=== PATIENT | male | born 1950 | race Caucasian/White ===

== ENCOUNTER 2016-10-26 10:23 | Outpatient (RCR) | payer MEDICAID, MEDICARE ==
--- OUTSIDE RECORDS SUMMARY | 2016-10-25 10:46 | XMS REPORT | Continuity of Care Document ---
Author Author [facility] Organization [facility] Address Unknown Phone Unavailable Care Team Providers Care Facilities Coordinator Name Role Phone [facility]CP Insurance Providers Payer Name Policy Number Subscriber Name Relationship [employer] [id number] Jah Arteaga 18 Self / Same As Patient [facility] [id number] Jah Arteaga 18 Self / Same As Patient Advance Directives Directive Response Recorded Date/Time Advance Directives No 10/23/14 11:30pm Health Care Power of Marketing Sales Manager No 10/23/14 11:30pm Organ Donor No 10/23/14 11:30pm Resuscitation Status Full Code 10/23/14 11:30pm Chief Complaint and Reason for Visit Chief Complaint ACUTE CHOLECYSTITIS,SEPTIC SHOCK Reason for Visit Cholecystitis Gangrenous cholecystitis Gangrenous cholecystitis Problems Medical Problems Problem Onset Date Status Cholecystitis Unknown Active Gangrenous cholecystitis Unknown Active Gangrenous cholecystitis Unknown Active Medications Medication Dose Route Sig Days/Qty Instructions Order Date Discontinued Date Status Tramadol Hcl 50 Mg PO THREE TIMES A DAY PRN 05/22/11 10/23/14 Discontinued Insulin Lispro 100 Unit SQ THREE TIMES A DAY 05/22/11 10/23/14 Discontinued Lisinopril/Hydrochlorothiazide 1 Tab PO DAILY 05/22/11 10/23/14 Discontinued Levothyroxine Sodium (Levothroid) 125 Mcg PO DAILY 05/22/11 Discontinued Loratadine 10 Mg PO DAILY 05/22/11 10/23/14 Discontinued Insulin Detemir 100 Units SQ TWICE A DAY 05/26/11 Active Metformin HCl (Glucophage) 1 Each PO TWICE A DAY WITH MEALS 03/22/13 10/26/14 Discontinued Azithromycin (Zpak) 1 Packet PO Z-TRI 6 Qty 03/22/13 10/23/14 Discontinued Liraglutide 1.2 Mg SQ DAILY 10/23/14 Active [Cholesterol] 10/23/14 10/23/14 Discontinued Vitamin E (Dl,Tocopheryl Acet) 200 Unit PO DAILY 10/23/14 Active Omeprazole 20 Mg PO DAILY 10/23/14 Active Levothyroxine Sodium (Levothroid) 1 Each PO DAILY 10/23/14 10/26/14 Discontinued Amitriptyline Hcl 25 Mg PO DAILY 10/23/14 10/26/14 Discontinued Lisinopril 20 Mg PO DAILY 10/23/14 10/26/14 Discontinued Metformin Hcl 500 Mg PO TWICE A DAY 10/26/14 Active Colestipol Hcl,Micronized 1 Gm PO TWICE A DAY 10/26/14 Active Doxepin Hcl 50 Mg PO BEDTIME PRN SLEEP 10/26/14 Active Lisinopril (Zestril) 20 Mg PO DAILY 10/26/14 Active Glipizide (Glucotrol) 20 Mg PO TWICE A DAY TAKES 2 (10MG) TABLETS 10/26 Active Venlafaxine Hcl 75 Mg PO DAILY 10/26/14 Active Social History Social History Problem Response Recorded Date/Time Alcohol Use Denies Use 10/24/2014 12:00am Recreational Drug Use No 10/24/2014 12:00am Recent Foreign Travel No 08/14/2014 1:55pm Recent Infectious Disease Exposure No 08/14/2014 1:55pm Hospitalization with Isolation Denies 11/02/2014 12:41pm Sexually Transmitted Disease No 10/24/2014 12:00am Smoking Status Former Smoker 10/24/2014 12:03am Do you dip or chew tobacco? No 10/24/2014 12:03am Query Response Start Date Stop Date Smoking Status Former Smoker Hospital Discharge Instructions No hospital discharge instructions. Plan of Care Discharge Date 10/28/14 6:00pm Disposition 30 STILL A PATIENT Instructions/Education Provided DIABETES Diabetes Mellitus Type 2 in Adults (DC) Laparoscopic Cholecystectomy (DC) Acute Abdominal Pain (ED) Wound Healing and your Diet (DC) Prescriptions See Medications Section Referrals (Unspecified) Reason(s) for Referral: appt w Dr. Manning in office on 2013 @ 2:30. ([phone]). Functional Status Query Response Date Recorded Comprehension Ability Understands Concepts October 26, 2014 11:31am Allergies, Adverse Reactions, Alerts Allergen Type Severity Reaction Status Last Updated No Known Drug Allergies Active 05/22/11 Immunizations Name Given Type Date of Pneumonia Vaccine 07/14/13 Historical Date of Influenza Vaccine 09/12/14 Historical Hepatitis A No Historical Hepatitis B No Historical Tetanus Booster (TDap) More than 5yrs Historical Vital Signs Acute Vital Signs Vital Response Date/Time Temperature (Fahrenheit) 97.8 degrees F (97.6 - 99.5) Temperature (Calculated Celsius) 36.86800 degrees C (36.4 - 37.5) Temperature Source Tympanic Pulse Rate (adult) 74 bpm (60 - 90) Respiratory Rate 20 bpm (12 - 24) O2 Sat by Pulse Oximetry 94 % (88 - 100) Blood Pressure 127/83 mm Hg Pain Pain Intensity 0 Height (Feet) 5 feet Height (Inches) 9.00 inches Height (Calculated Centimeters) 175.502111 cm Weight (Pounds) 219 pounds Weight (Ounces) 4.8 oz Weight (Calculated Grams) 07773.808 gm Weight (Calculated Kilograms) 99.299489 kilograms Calculated BMI 32.48 Results Laboratory Results Test Name Result Units Flags Reference Collection Date/Time Result Date/ Time Comments White Blood Count 11.6 10^3/uL H 4.3-11.0 10/28/2014 11:00am 10/28/2014 11:12am Red Blood Count 3.49 10^6/uL L 4.35-5.85 10/28/2014 11:00am 10/28/2014 11 :12am Hemoglobin 11.0 G/DL L 13.3-17.7 10/28/2014 11:00am 10/28/2014 11:12am Hematocrit 32 % L 40-54 10/28/2014 11:00am 10/28/2014 11:12am Mean Corpuscular Volume 92 FL 80-99 10/28/2014 11:00am 10/28/2014 11: 12am Mean Corpuscular Hemoglobin 32 PG 25-34 10/28/2014 11:00am 10/28/2014 11:12am Mean Corpuscular Hemoglobin Concent 34 G/DL 32-36 10/28/2014 11:00am 11:12am Red Cell Distribution Width 12.4 % 10.0-14.5 10/28/2014 11:00am 2013 11:12am Platelet Count 683 10^3/uL H 130-400 10/28/2014 11:00am 10/28/2014 11: 12am Mean Platelet Volume 9.4 FL 7.4-10.4 10/28/2014 11:00am 10/28/2014 11: 12am Neutrophils (%) (Auto) 66 % 42-75 10/28/2014 11:00am 10/28/2014 11: 12am Lymphocytes (%) (Auto) 24 % 12-44 10/28/2014 11:00am 10/28/2014 11: 12am Monocytes (%) (Auto) 8 % 0-12 10/28/2014 11:00am 10/28/2014 11:12am Eosinophils (%) (Auto) 2 % 0-10 10/28/2014 11:00am 10/28/2014 11:12am Basophils (%) (Auto) 0 % 0-10 10/28/2014 11:00am 10/28/2014 11:12am Neutrophils # (Auto) 7.7 X 10^3 1.8-7.8 10/28/2014 11:00am 10/28/2014 11:12am Lymphocytes # (Auto) 2.8 X 10^3 1.0-4.0 10/28/2014 11:00am 10/28/2014 11:12am Monocytes # (Auto) 0.9 X 10^3 0.0-1.0 10/28/2014 11:00am 10/28/2014 11: 12am Eosinophils # (Auto) 0.2 10^3/uL 0.0-0.3 10/28/2014 11:00am 10/28/2014 11:12am Basophils # (Auto) 0.1 10^3/uL 0.0-0.1 10/28/2014 11:00am 10/28/2014 11 :12am Neutrophils % (Manual) 72 % 10/23/2014 3:48pm 10/23/2014 4:25pm Band Neutrophils 4 % 10/23/2014 3:48pm 10/23/2014 4:25pm Lymphocytes % (Manual) 14 % 10/23/2014 3:48pm 10/23/2014 4:25pm Monocytes % (Manual) 4 % 10/23/2014 3:48pm 10/23/2014 4:25pm Eosinophils % (Manual) 2 % 10/23/2014 3:48pm 10/23/2014 4:25pm Basophils % (Manual) 0 % 10/23/2014 3:48pm 10/23/2014 4:25pm Atypical Lymphocytes 4 % 10/23/2014 3:48pm 10/23/2014 4:25pm Blood Morphology Comment NORMAL 10/23/2014 3:48pm 10/23/2014 4: 25pm Urine Color YELLOW 10/23/2014 3:48pm 10/23/2014 4:31pm Urine Clarity CLEAR 10/23/2014 3:48pm 10/23/2014 4:31pm Urine pH 5 5-9 10/23/2014 3:48pm 10/23/2014 4:31pm Urine Specific [place] 1.020 1.016-1.022 10/23/2014 3:48pm 2013 4:31pm Urine Protein NEGATIVE NEGATIVE 10/23/2014 3:48pm 10/23/2014 4:31pm Urine Glucose (UA) NEGATIVE NEGATIVE 10/23/2014 3:48pm 10/23/2014 4: 31pm Urine RBC (Auto) NEGATIVE NEGATIVE 10/23/2014 3:48pm 10/23/2014 4: 31pm Urine Ketones NEGATIVE NEGATIVE 10/23/2014 3:48pm 10/23/2014 4:31pm Urine Nitrite NEGATIVE NEGATIVE 10/23/2014 3:48pm 10/23/2014 4:31pm Urine Bilirubin NEGATIVE NEGATIVE 10/23/2014 3:48pm 10/23/2014 4: 31pm Urine Urobilinogen NORMAL MG/DL NORMAL 10/23/2014 3:48pm 10/23/2014 4: 31pm Urine Leukocyte Esterase NEGATIVE NEGATIVE 10/23/2014 3:48pm 2013 4:31pm Urine RBC NONE /HPF 10/23/2014 3:48pm 10/23/2014 4:31pm Urine WBC NONE /HPF 10/23/2014 3:48pm 10/23/2014 4:31pm Urine Bacteria NEGATIVE /HPF 10/23/2014 3:48pm 10/23/2014 4:31pm Urine Squamous Epithelial Cells RARE /HPF 10/23/2014 3:48pm 2013 4:31pm Urine Crystals NONE /LPF 10/23/2014 3:48pm 10/23/2014 4:31pm Urine Casts NONE /LPF 10/23/2014 3:48pm 10/23/2014 4:31pm Urine Mucus NEGATIVE /LPF 10/23/2014 3:48pm 10/23/2014 4:31pm Urine Culture Indicated NO 10/23/2014 3:48pm 10/23/2014 4:31pm Sodium Level 133 MMOL/L L 135-145 10/28/2014 11:00am 10/28/2014 11:38am Potassium Level 3.9 MMOL/L 3.6-5.0 10/28/2014 11:00am 10/28/2014 11: 38am Chloride Level 102 MMOL/L 98-107 10/28/2014 11:00am 10/28/2014 11:38am Carbon Dioxide Level 20 MMOL/L L 21-32 10/28/2014 11:00am 10/28/2014 11: 38am Blood Urea Nitrogen 14 MG/DL 7-18 10/28/2014 11:00am 10/28/2014 11: 38am Creatinine 0.87 MG/DL 0.60-1.30 10/28/2014 11:00am 10/28/2014 11:38am BUN/Creatinine Ratio 16 10/28/2014 11:00am 10/28/2014 11:38am Estimat Glomerular Filtration Rate > 60 10/28/2014 11:00am 2013 11:38am GFR INTERPRETIVE DATA UNITS FOR ESTIMATED GFR (eGFR): mL/min/1.73 M2 REFERENCE RANGE FOR ESTIMATED GFR (eGFR) eGFR NORMAL eGFR >60 MODERATELY DECREASED eGFR 30-59 SEVERLY DECREASED eGFR 15-29 KIDNEY FAILURE <15 (OR DIALYSIS) Glucose Level 171 MG/DL H 70-105 10/28/2014 11:00am 10/28/2014 11:38am Glucometer 220 MG/DL H 70-110 10/28/2014 1:59pm 10/28/2014 2:09pm Calcium Level 8.2 MG/DL L 8.5-10.1 10/28/2014 11:00am 10/28/2014 11:38am Total Bilirubin 0.2 MG/DL 0.1-1.0 10/28/2014 11:00am 10/28/2014 11: 38am Alkaline Phosphatase 92 U/L 40-136 10/28/2014 11:00am 10/28/2014 11: 38am Aspartate Amino Transf (AST/SGOT) 25 U/L 5-34 10/28/2014 11:00am 2013 11:38am Alanine Aminotransferase (ALT/SGPT) 16 U/L 0-55 10/28/2014 11:00am 11:38am Total Protein 6.6 G/DL 6.4-8.2 10/28/2014 11:00am 10/28/2014 11:38am Albumin 2.8 G/DL L 3.2-4.5 10/28/2014 11:00am 10/28/2014 11:38am Amylase Level 69 U/L 25-125 10/23/2014 3:48pm 10/23/2014 4:17pm Lipase 79 U/L H 8-78 10/23/2014 3:48pm 10/23/2014 4:17pm Lactic Acid Level 0.9 MMOL/L 0.5-2.2 10/25/2014 10:45am 10/25/2014 11: 20am Procedures Procedure Status Date Provider(s) Laparoscopic cholecystectomy completed 10/23/14 AGUSTIN MANNING MD Encounters Encounter Location Date/Time Discharged Inpatient [facility] 10/23/14 5:28pm Recent Diagnosis Cholecystitis Gangrenous cholecystitis Gangrenous cholecystitis
[~2016-10-26 10:23] MED LIST: AMIT25TA9 PO; AZIT-21 PO; CHOLESTEROL; COLE1TAB PO; DOXE50CA3 PO; GLIP10TA13 PO; INSU100I23 SQ; LEVE1U SQ; LEVO125T6 PO; LIRA0.6P SQ; LISI10TA2 PO; LISI1TAB32 PO; LISI20TA PO; LORA10TA7 PO; METF-144 PO; MTF500T PO; OMEP20CA12 PO; TRAM50TA2 PO; VENL75CA55 PO; VITA200C53 PO
== END 2017-01-23 | disposition home or self-care (01) ==
LOC: LAB 10:23
PROVIDERS: ATTEND Surgery
DX: R19.7 Diarrhea, unspecified (principal)
CPT/HCPCS: 82274; 87045; 87046; 87177

== ENCOUNTER 2017-04-10 21:32 | Emergency (ER) | payer MEDICARE ==
[~2017-04-10] VITALS: Ht 177.8 cm; Wt 82.6 kg
[2017-04-10] MEDS ORDERED: NS IV 1000 ML 1,000 ML IV SCH (21:45)
[2017-04-10 21:49] LABS: BASOPHILS % (AUTO) 0 % (0-10); EOSINOPHILS # (AUTO) 0.1 10^3/uL (0.0-0.3); EOSINOPHILS % (AUTO) 1 % (0-10); LYMPHOCYTES # (AUTO) 2.5 X 10^3 (1.0-4.0); LYMPHOCYTES % (AUTO) 17 % (12-44); MEAN CORPUSCULAR HEMOGLOBIN 31 PG (25-34); MEAN CORPUSCULAR HGB CONC 35 G/DL (32-36); MEAN CORPUSCULAR VOLUME 88 FL (80-99); MEAN PLATELET VOLUME 10.7 FL (7.4-10.4); MONOCYTES # (AUTO) 1.4 X 10^3 (0.0-1.0); MONOCYTES % (AUTO) 9 % (0-12); NEUTROPHILS # (AUTO) 10.4 X 10^3 (1.8-7.8); NEUTROPHILS % (AUTO) 73 % (42-75); PLATELET COUNT 405 10^3/uL (130-400); RED BLOOD COUNT 4.12 10^6/uL (4.35-5.85); RED CELL DISTRIBUTION WIDTH 12.5 % (10.0-14.5); WHITE BLOOD COUNT 14.3 10^3/uL (4.3-11.0)
--- NOTE | 2017-04-10 21:51 | ED GU-Male ---
General Chief Complaint: -Male Stated Complaint: URINARY INCONTINENCE Nursing Triage Note: PT TO ED 6 W/ S.O. FOR C/O URINARY INCONTINENCE ONSET X1 WK, WORSE TODAY. DENIES SEEING PCP FOR C/O. Source: patient Exam Limitations: no limitations History of Present Illness Time seen by provider: 21:50 Initial Comments To ER with a one-week history of suprapubic discomfort and urinary frequency and incontinence. This has caused him to need to bring a cool whip container with him to the emergency room to urinate in on the way here. No fevers or chills. He has not seen his regular doctor for this. No back pain. No loss of bowel control. Timing/Duration: week, getting worse Severity/Quality: moderate Location: suprapubic Activities at Onset: none Prior Genitourinary Problems: none Associated Symptoms: dysuria Allergies and Home Medications Allergies Coded Allergies: No Known Drug Allergies (Unverified , 05/22/11) Home Medications Ciprofloxacin HCl 500 Mg Tablet, 500 MG PO BID, #14 Prescribed by: SADE RODAS on 04/10/176 Colestipol Hcl,Micronized 1 Gm Tablet, 1 GM PO BID, (Reported) Doxepin Hcl 50 Mg Capsule, 50 MG PO HS PRN for SLEEP, (Reported) Glipizide 10 Mg Tablet, 20 MG PO BID, (Reported) TAKES 2 (10MG) TABLETS Insulin Determir 100 U/Ml Insuln.pen, 100 UNITS SQ BID, (Reported) Liraglutide 0.6 Mg/0.1 Ml Pen.injctr, 1.2 MG SQ DAILY, (Reported) Lisinopril 20 Mg Tablet, 20 MG PO DAILY, (Reported) Metformin Hcl 500 Mg Tab.sr.24h, 500 MG PO BID, (Reported) Omeprazole 20 Mg Capsule.dr, 20 MG PO DAILY, (Reported) Phenazopyridine HCl 100 Mg Tablet, 100 MG PO TID, #6 Prescribed by: SADE RODAS on 04/10/172225 Venlafaxine Hcl 75 Mg Cap.sr.24h, 75 MG PO DAILY, (Reported) Vitamin E (Dl,Tocopheryl Acet) 200 Unit Capsule, 200 UNIT PO DAILY, (Reported) Constitutional: see HPI, No chills, No fever EENTM: see HPI Respiratory: no symptoms reported Cardiovascular: no symptoms reported Genitourinary: see HPI, dysuria Musculoskeletal: no symptoms reported Skin: no symptoms reported Psychiatric/Neurological: No Symptoms Reported Endocrine: No Symptoms Reported Past Awkkjfc-Xmdhuh-Ycyjlq Hx Patient Social History Alcohol Use: Denies Use Recreational Drug Use: No Smoking Status: Never a Smoker Recent Foreign Travel: No Contact w/Someone Who Travel: No Recent Infectious Disease Expo: No Recent Hopitalizations: No Immunizations Up To Date Tetanus Booster (TDap): More than 5yrs PED Vaccines UTD: No Date of Pneumonia Vaccine: Jul 14, 2013 Date of Influenza Vaccine: Sep 12, 2014 Seasonal Allergies Seasonal Allergies: Yes Surgeries HX Surgeries: Yes (hemmorhoids removed, CATARACTS) Surgeries: Eye Surgery, Gallbladder, Orthopedic Respiratory Hx Respiratory Disorders: Yes Respiratory Disorders: Pneumonia, Sleep Apnea, COPD Cardiovascular Hx Cardiac Disorders: Yes Cardiac Disorders: High Cholesterol, Hypertension Neurological Hx Neurological Disorders: No Reproductive System Hx Reproductive Disorders: Yes (sterile) Sexually Transmitted Disease: No Genitourinary Hx Genitourinary Disorders: No Gastrointestinal Hx Gastrointestinal Disorders: Yes Gastrointestinal Disorders: Hemorrhoids Musculoskeletal Hx Musculoskeletal Disorders: Yes Musculoskeletal Disorders: Chronic Back Pain, Fractures Endocrine Hx Endocrine Disorders: Yes (Type II) Endocrine Disorders: Diabetes, Insulin dep HEENT HX ENT Disorders: Yes (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, bilat cataracts removed) HEENT Disorders: Cataract Cancer Hx Cancer: No Psychosocial Hx Psychiatric Problems: No Integumentary HX Skin/Integumentary Disorder: No Blood Transfusions Hx Blood Disorders: No Adverse Reaction to a Blood Tr: No (No transfusion history.) Family Medical History Significant Family History: Hypertension Family Medial History: Alcoholism G8 BROTHER G8 BROTHER Alzheimer's disease 19 MOTHER Arthritis 19 FATHER 19 MOTHER Asthma 19 FATHER Cataracts 19 FATHER 19 MOTHER G8 BROTHER G8 BROTHER G8 SISTER G8 SISTER G8 SISTER Completed stroke 19 FATHER G8 SISTER Deafness or hearing loss G8 BROTHER Diabetes mellitus 19 FATHER 19 MOTHER G8 BROTHER G8 BROTHER G8 BROTHER G8 SISTER G8 SISTER G8 SISTER Hypertension 19 FATHER 19 MOTHER G8 BROTHER G8 BROTHER G8 BROTHER G8 BROTHER G8 SISTER G8 SISTER G8 SISTER G8 SISTER G8 SISTER G8 SISTER G8 SISTER Respiratory disorder G8 BROTHER No Family History of: AIDS Abdominal aortic aneurysm Britton's disease Aphasia Cancer of mouth Cardiovascular disease Colon cancer Congenital disease Congenital heart disease Coronary thrombosis Cystic fibrosis Dementia Drug abuse Dysphasia Fibrocystic disease of breast Gastroenteritis Glaucoma Headache disorder Hypercholesterolemia Infertility Kidney disease Myocardial infarction Neoplasm Not obtainable due to adoption Osteoporosis Parkinson's disease Prostate cancer Psychosocial problem Seizure disorder Severe allergy Thyroid disease Tuberculosis Visual disorder Physical Exam Vital Signs Vital Sign - Last 12Hours 04/10/17 21:37 Temp 99.5 Pulse 102 Resp 20 B/P (MAP) 162/85 Pulse Ox 96 O2 Delivery Room Air Capillary Refill : Less Than 3 Seconds General Appearance: WD/WN, no apparent distress HEENT: PERRL/EOMI, normal ENT inspection Neck: non-tender, full range of motion Respiratory: normal breath sounds, no respiratory distress, no accessory muscle use Gastrointestinal: normal bowel sounds, soft, tenderness Extremities: normal range of motion, non-tender Neurologic/Psychiatric: alert, normal mood/affect, oriented x 3 Skin: normal color, warm/dry Progress/Results/Core Measures Results/Orders Lab Results Laboratory Tests Test 04/10/17 21:40 04/10/17 21:49 Range/Units White Blood Count 14.3 H 4.3-11.0 10^3/uL Red Blood Count 4.12 L 4.35-5.85 10^6/uL Hemoglobin 12.6 L 13.3-17.7 G/DL Hematocrit 36 L 40-54 % Mean Corpuscular Volume 88 80-99 FL Mean Corpuscular Hemoglobin 31 25-34 PG Mean Corpuscular Hemoglobin Concent 35 32-36 G/DL Red Cell Distribution Width 12.5 10.0-14.5 % Platelet Count 405 H 130-400 10^3/uL Mean Platelet Volume 10.7 H 7.4-10.4 FL Neutrophils (%) (Auto) 73 42-75 % Lymphocytes (%) (Auto) 17 12-44 % Monocytes (%) (Auto) 9 0-12 % Eosinophils (%) (Auto) 1 0-10 % Basophils (%) (Auto) 0 0-10 % Neutrophils # (Auto) 10.4 H 1.8-7.8 X 10^3 Lymphocytes # (Auto) 2.5 1.0-4.0 X 10^3 Monocytes # (Auto) 1.4 H 0.0-1.0 X 10^3 Eosinophils # (Auto) 0.1 0.0-0.3 10^3/uL Basophils # (Auto) 0.0 0.0-0.1 10^3/uL Neutrophils % (Manual) 72 % Lymphocytes % (Manual) 23 % Monocytes % (Manual) 3 % Eosinophils % (Manual) 0 % Basophils % (Manual) 0 % Band Neutrophils 2 % Blood Morphology Comment NORMAL Sodium Level 132 L 135-145 MMOL/L Potassium Level 4.4 3.6-5.0 MMOL/L Chloride Level 98 98-107 MMOL/L Carbon Dioxide Level 19 L 21-32 MMOL/L Anion Gap 15 H 5-14 MMOL/L Blood Urea Nitrogen 19 H 7-18 MG/DL Creatinine 1.27 0.60-1.30 MG/DL Estimat Glomerular Filtration Rate 57 BUN/Creatinine Ratio 15 Glucose Level 522 *H 70-105 MG/DL Calcium Level 9.5 8.5-10.1 MG/DL Total Bilirubin 0.3 0.1-1.0 MG/DL Aspartate Amino Transf (AST/SGOT) 15 5-34 U/L Alanine Aminotransferase (ALT/SGPT) 25 0-55 U/L Alkaline Phosphatase 142 H 40-136 U/L Total Protein 7.9 6.4-8.2 G/DL Albumin 3.8 3.2-4.5 G/DL Urine Color YELLOW Urine Clarity SLIGHTLY CLOUDY Urine pH 5 5-9 Urine Specific [place] 1.010 L 1.016-1.022 Urine Protein 3+ H NEGATIVE Urine Glucose (UA) 4+ H NEGATIVE Urine Ketones NEGATIVE NEGATIVE Urine Nitrite POSITIVE H NEGATIVE Urine Bilirubin NEGATIVE NEGATIVE Urine Urobilinogen NORMAL NORMAL MG/DL Urine Leukocyte Esterase 3+ H NEGATIVE Urine RBC (Auto) 5+ H NEGATIVE Urine RBC TNTC H /HPF Urine WBC 50-100 H /HPF Urine Crystals NONE /LPF Urine Bacteria TRACE /HPF Urine Casts NONE /LPF Urine Mucus NEGATIVE /LPF Urine Culture Indicated YES My Orders Orders - SADE RODAS APRN Cbc With Automated Diff (04/10/17 21:42) Comprehensive Metabolic Panel (04/10/17 21:42) Ua Culture If Indicated (04/10/17 21:42) Saline Lock/Iv-Start (04/10/17 21:42) Ns Iv 1000 Ml (Sodium Chloride 0.9%) (04/10/17 21:45) Urine Culture (04/10/17 21:49) Insulin (Regular) Human (Humulin R (Per (04/10/17 22:15) Ceftriaxone Injection (Rocephin Injectio (04/10/17 22:15) Tetanus/Diphtheria Inj (Adult) (Tenivac (04/10/17 22:15) Manual Differential (04/10/17 21:40) Accucheck Stat ONCE (04/10/17 22:38) Medications Given in ED Current Medications Medications Dose Ordered Sig/Jing Route Start Time Stop Time Status Last Admin Dose Admin Ceftriaxone Sodium 1000 mg/ Sodium Chloride 50 ml @ 100 mls/hr ONCE ONCE IV 04/10/17 22:15 04/10/17 22:44 DC 04/10/17 22:26 100 MLS/HR Insulin Human Regular 10 unit ONCE ONCE IV 04/10/17 22:15 04/10/17 22:16 DC 04/10/17 22:25 10 UNIT Vital Signs/I&O Vital Sign - Last 12Hours 04/10/17 21:37 Temp 99.5 Pulse 102 Resp 20 B/P (MAP) 162/85 Pulse Ox 96 O2 Delivery Room Air Blood Pressure Mean: 110 Departure Communication Progress Notes 2240-I discussed the plan for discharge with the patient and his . They're both in agreement with this plan and agreed to return for any fevers, lightheadedness, worsening abdominal pain, confusion or any other concerns. 2249-patient is sitting up on the edge of the bed, vitals stable states "I don' t feel bad other than I just can't quit peeing". Repeat blood sugar at this time is 294. They called [facility] today and were instructed to call back at 7 a.m. tomorrow morning for an appointment time tomorrow. We will continue with this plan to see [facility] tomorrow for follow-up. Impression Impression: Primary Impression: Urinary tract infection Qualified Codes: N30.01 - Acute cystitis with hematuria Disposition: HOME, SELF-CARE Condition: Stable Departure-Patient Inst. Decision time for Depature: 22:24 Referrals: LAURA BOBBY DO (PCP) Primary Care Physician CHLOE GIBBS (Family) Primary Care Physician Patient Instructions: Urinary Tract Infection, Adult (DC) Add. Discharge Instructions: 1. Take antibiotics as directed 2. Return to ER for any concerns such as fevers, worsening pain or other problems 3. Otherwise, I want you to see your regular doctor in the next 1-2 days for repeat bloodwork. You may use the walk-in clinic at [facility] as well. All discharge instructions reviewed with patient and/or family. Voiced understanding. Scripts Phenazopyridine HCl (Pyridium) 100 Mg Tablet 100 MG PO TID, #6 TAB Prov: SADE RODAS APRN 04/10/17 Ciprofloxacin HCl (Cipro) 500 Mg Tablet 500 MG PO BID, #14 TAB Prov: SADE RODAS APRN 04/10/17 Copy Copies To 1: LAURA BOBBY PETER J APRN April 10, 2017 21:51
[2017-04-10 21:55] LABS: BILIRUBIN,URINE NEGATIVE (NEGATIVE); KETONES,URINE NEGATIVE (NEGATIVE); LEUKOCYTE ESTERASE ,URINE 3+ (NEGATIVE); NITRITE,URINE POSITIVE (NEGATIVE); PH,URINE 5 (5-9); PROTEIN,URINE 3+ (NEGATIVE); UROBILINOGEN,URINE NORMAL (NORMAL)
[2017-04-10 22:06] LABS: ALBUMIN 3.8 G/DL (3.2-4.5); BILIRUBIN,TOTAL 0.3 MG/DL (0.1-1.0); CALCIUM 9.5 MG/DL (8.5-10.1); CREATININE SERUM 1.27 MG/DL (0.60-1.30); POTASSIUM 4.4 MMOL/L (3.6-5.0); TOTAL PROTEIN 7.9 G/DL (6.4-8.2)
[2017-04-10 22:07] LABS: WBC,URINE 50-100 /HPF
[2017-04-10] MEDS ORDERED: TETANUS & DIPHTHERIA TOX,ADULT 0.5 ML (TENIVAC) IM ONE (22:15)
[2017-04-10] MEDS ORDERED: inSUlin (REGULAR) HUMAN 1 UNIT/0.01 ML (CHARGE PER UNIT) IV ONE (22:15)
[2017-04-10] MEDS ORDERED: cefTRIAXone INJECTION 1,000 MG in NS (IVPB) 50 ML IV ONE (22:15)
[2017-04-10] MEDS ORDERED: CIPR-225 PO (22:26)
[2017-04-10] MEDS ORDERED: PHEN-639 PO (22:26)
[2017-04-10 22:34] LABS: BAND NEUTROPHILS 2 %; BASOPHILS % (MANUAL) 0 %; EOSINOPHILS % (MANUAL) 0 %; LYMPHOCYTES % (MANUAL) 23 %; NEUTROPHILS % (MANUAL) 72 %
[2017-04-10 22:56] VITALS: BP 131/74
== END 2017-04-10 22:56 | disposition home or self-care (01) ==
LOC: EDUNIT# 21:32 → ER 21:34
DX: N30.01 Acute cystitis with hematuria (principal); Z23 Encounter for immunization; E11.9 Type 2 diabetes mellitus without complications; I10 Essential (primary) hypertension; J44.9 Chronic obstructive pulmonary disease, unspecified; Z79.4 Long term (current) use of insulin; Z79.84 Long term (current) use of oral hypoglycemic drugs; Z79.899 Other long term (current) drug therapy
CPT/HCPCS: 36415; 80053; 81000; 82962; 85007; 85027; 87088; 87186

== ENCOUNTER → 2017-06-20 | Outpatient (CLI) | payer MEDICARE ==
[~2017-06-20] MED LIST changes: +CIPR-225 PO; +PHEN-639 PO
--- NOTE | 2017-06-20 15:57 | Diagnostic Imaging Report ---
CLINICAL INDICATION: Patient with left side of neck has a knot that has come and gone for a while. EXAM: CT scan of the neck performed without and with 75 cc of Omnipaque 350 IV contrast. Coronal reformatted images are created. COMPARISON: None. FINDINGS: There is no neck soft tissue mass, fluid collection or fat stranding. There is mild asymmetry of the left palatine adenoid soft tissue which is mildly prominent compared to the right side with no measurable mass seen. The nasopharynx, hypopharynx, and laryngeal structures are relatively symmetric and unremarkable. The visualized portions of the oral cavity, tongue, sublingual space, and submandibular regions are unremarkable. There is no significant neck lymphadenopathy seen. There are subcentimeter lymph nodes along both sides of the neck with none appearing pathologic. The thyroid gland and bilateral salivary glands are unremarkable. There is atherosclerotic disease involving the bilateral ICA bulbs without significant stenosis. Limited visualization of intracranial structures are unremarkable. There is mild cervical spine degenerative disease. Limited visualization of the lung izquierdo are clear. IMPRESSION: 1: There is nonspecific mild prominence of the left palatine adenoid soft tissue compared to the right side with no measurable mass seen. Direct visualization would better evaluate if there is concern for abnormality in this region. 2: Otherwise, the remainder of the neck is unremarkable. There is no significant lymphadenopathy. Dictated by: Dictated on workstation # [id number]
== END ==
LOC: RAD 12:50
PROVIDERS: ATTEND Nurse Practitioner Adult Health
DX: R22.1 Localized swelling, mass and lump, neck (principal)
CPT/HCPCS: 70492

== ENCOUNTER → 2017-11-19 | Outpatient (CLI) | payer MEDICARE ==
[~2017-11-19] MED LIST changes: +CATHETER FLUSH 10 ML SYR IV PRN; +IOHEXOL 350 MG/ML 100 ML (OMNIPAQUE 350) VIAL IV ONE; +NS 100 ML (IVPB) BAG IV ONE
--- NOTE | 2017-11-19 16:35 | Diagnostic Imaging Report ---
PROCEDURE: CT abdomen and pelvis with and without contrast. TECHNIQUE: Precontrast acquisitions were acquired through the abdomen and pelvis. Multiple contiguous axial images were obtained through the abdomen and pelvis after the administration of intravenous contrast. INDICATION: Weight loss with abdominal pain and diarrhea. FINDINGS: The lung bases are clear. The liver is normal in size without focal lesions. Gallbladder is surgically absent. Spleen is unremarkable. The pancreas and adrenal glands are unremarkable. The kidneys are normal in appearance. The abdominal aorta is nonaneurysmal. The bowel gas pattern is nonspecific. There is a right anterior abdominal wall hernia containing only omental fat. There is no pelvic mass or adenopathy. The bladder is unremarkable. There are degenerative changes in the spine. IMPRESSION: Right anterior abdominal wall hernia containing only omental fat. The defect does measure up to 3.2 cm and could certainly intermittently contain bowel. Recommend clinical correlation. Previous cholecystectomy. Degenerative changes in the spine. No other acute abnormality in the abdomen or pelvis. Dictated by: Dictated on workstation # [id number]
--- NOTE | 2017-11-19 16:35 | Diagnostic Imaging Report ---
PROCEDURE: CT chest without contrast. TECHNIQUE: Multiple contiguous axial images were obtained through the chest without the use of intravenous contrast. INDICATION: Shortness of breath with COPD. FINDINGS: There is a 2 mm noncalcified nodular density in the right lower lobe on image 35 series 2. There is a 2 mm nodular density in the medial aspect of the right middle lobe on image 28 series 2. There is a tiny calcified granuloma in the lateral aspect of the right upper lobe on image 16 series 2. There is no pleural or pericardial fluid. There is no pneumothorax. There is no pneumonia. Heart size is normal. There are some minimal coronary artery calcifications. There is no pathologically enlarged adenopathy in the chest. Thyroid is unremarkable. There are mild degenerative changes in the spine. The visualized intra-abdominal structures are unremarkable. IMPRESSION: There are a few tiny noncalcified nodular densities in the right lung likely granulomas. Six-month follow-up is recommended to ensure stability. No other acute abnormality in the chest. Dictated by: Dictated on workstation # [id number]
== END ==
LOC: RAD 15:12
PROVIDERS: ATTEND Nurse Practitioner Family
DX: K43.9 Ventral hernia without obstruction or gangrene (principal); R63.4 Abnormal weight loss; R19.7 Diarrhea, unspecified
CPT/HCPCS: 71250; 74178

== ENCOUNTER 2017-12-07 08:49 | Outpatient (CLI) | payer MEDICARE ==
[~2017-12-07] VITALS: Ht 177.8 cm; Wt 73.1 kg
[~2017-12-07 08:49] MED LIST changes: -CATHETER FLUSH 10 ML SYR IV PRN; -IOHEXOL 350 MG/ML 100 ML (OMNIPAQUE 350) VIAL IV ONE; -NS 100 ML (IVPB) BAG IV ONE
[2017-12-07 09:07] VITALS: BP 110/70
[2017-12-07] MEDS ORDERED: OMEP20CA12 PO (09:41)
[2017-12-07] MEDS ORDERED: GLIP10TA2 PO (09:41)
[2017-12-07] MEDS ORDERED: LISI-552 PO (09:41)
[2017-12-07] MEDS ORDERED: LORA10TA76 PO (09:41)
[2017-12-07] MEDS ORDERED: CARB1TAB44 PO (09:41)
[2017-12-07] MEDS ORDERED: VNL75T PO (09:41)
[2017-12-07] MEDS ORDERED: NF-COLE1GM PO (09:41)
[2017-12-07] MEDS ORDERED: CARB1TAB43 PO (09:41)
[2017-12-07] MEDS ORDERED: METF500T4 PO (09:41)
[2017-12-07] MEDS ORDERED: INSU100V5 SQ (09:41)
[2017-12-07] MEDS ORDERED: AMIT25TA9 PO (09:41)
[2017-12-07] MEDS ORDERED: LEVO125T6 PO (09:41)
[2017-12-07] MEDS ORDERED: COLE625T9 PO (09:41)
[2017-12-07] MEDS ORDERED: TRAZ100T92 PO (09:41)
[2017-12-07] MEDS ORDERED: FLUT9.9S NS (09:41)
[2017-12-07] MEDS ORDERED: DICY20TA10 PO (09:41)
[2017-12-07] MEDS ORDERED: LIRA0.6P SQ (09:41)
[2017-12-07] MEDS ORDERED: TRAM50TA2 PO (09:41)
[2017-12-07 09:55] LABS: BASOPHILS # (AUTO) 0.1 10^3/uL (0.0-0.1); BASOPHILS % (AUTO) 1 % (0-10); EOSINOPHILS % (AUTO) 0 % (0-10); HEMATOCRIT 37 % (40-54); HEMOGLOBIN 13.1 G/DL (13.3-17.7); LYMPHOCYTES # (AUTO) 2.8 X 10^3 (1.0-4.0); LYMPHOCYTES % (AUTO) 38 % (12-44); MEAN CORPUSCULAR HEMOGLOBIN 31 PG (25-34); MEAN CORPUSCULAR HGB CONC 36 G/DL (32-36); MEAN CORPUSCULAR VOLUME 86 FL (80-99); MEAN PLATELET VOLUME 10.8 FL (7.4-10.4); MONOCYTES # (AUTO) 0.6 X 10^3 (0.0-1.0); MONOCYTES % (AUTO) 8 % (0-12); NEUTROPHILS % (AUTO) 53 % (42-75); PLATELET COUNT 436 10^3/uL (130-400); RED BLOOD COUNT 4.29 10^6/uL (4.35-5.85); RED CELL DISTRIBUTION WIDTH 12.5 % (10.0-14.5); WHITE BLOOD COUNT 7.5 10^3/uL (4.3-11.0)
[2017-12-07 10:12] LABS: BUN/CREATININE RATIO 23; CALCIUM 10.1 MG/DL (8.5-10.1); CARBON DIOXIDE 21 MMOL/L (21-32); CHLORIDE 95 MMOL/L (98-107); CREATININE SERUM 1.15 MG/DL (0.60-1.30); GFR ESTIMATED > 60; POTASSIUM 4.4 MMOL/L (3.6-5.0); SODIUM 130 MMOL/L (135-145)
[2017-12-07 10:18] LABS: GLUCOSE 509 MG/DL (70-105)
[2017-12-10] MEDS ORDERED: LEVO75TA6 PO (16:04)
== END 2017-12-07 10:35 | disposition home or self-care (01) ==
LOC: PREOP 08:49
PROVIDERS: ATTEND Surgery
DX: Z01.812 Encounter for preprocedural laboratory examination (principal); Z11.2 Encounter for screening for other bacterial diseases; K43.2 Incisional hernia without obstruction or gangrene
CPT/HCPCS: 36415; 80048; 85025; 87081

== ENCOUNTER 2017-12-13 07:00 | Day surgery (SDC) | payer MEDICARE ==
[~2017-12-13] VITALS: Ht 177.8 cm; Wt 73.1 kg
[~2017-12-13 07:00] MED LIST changes: +CARB1TAB43 PO; +CARB1TAB44 PO; +COLE625T9 PO; +DICY20TA10 PO; +FLUT9.9S NS; +GLIP10TA2 PO; +INSU100V5 SQ; +LEVO75TA6 PO; +LISI-552 PO; +LORA10TA76 PO; +METF500T4 PO; +NF-COLE1GM PO; +TRAZ100T92 PO; +VNL75T PO
[2017-12-13] MEDS ORDERED: BUPIVACAINE 0.5% 30 ML (SENSORCAINE) VIAL ONE (07:20)
[2017-12-13] MEDS ORDERED: LIDOCAINE 1% INJ 20 ML (XYLOCAINE) VIAL ONE (07:20)
[2017-12-13] MEDS ORDERED: LACTATED RINGERS 1,000 ML IV PRN (07:25)
[2017-12-13 07:30] VITALS: BP 149/96
[2017-12-13] MEDS ORDERED: ceFAZolin 1 GM/NS 50 ML IVPB IV ONE ×2 (07:30)
[2017-12-13] MEDS ORDERED: CATHETER FLUSH 10 ML SYR IV PRN (07:45)
--- NOTE | 2017-12-13 08:16 | Progress Note-Pre Operative ---
Pre-Operative Progress Note H&P Reviewed The H&P was reviewed, patient examined and no changes noted. Date Seen by Provider: Dec 13, 2017 Time Seen by Provider: 08:15 Date H&P Reviewed: Dec 13, 2017 Time H&P Reviewed: 08:16 Pre-Operative Diagnosis: incisional hernia KATTY PACK DO Dec 13, 2017 08:16
[2017-12-13] MEDS ORDERED: ROCURONIUM 50 MG/5 ML (ZEMURON) VIAL IV ONE (09:01)
[2017-12-13] MEDS ORDERED: proPOfol 200 MG/20 ML (DIPRIVAN) VIAL IV ONE (09:01)
[2017-12-13] MEDS ORDERED: LIDOCAINE PF 2% 5 ML (XYLOCAINE) VIAL ONE (09:01)
[2017-12-13] MEDS ORDERED: SEVOFLURANE (ULTANE) 15 ML INHAL SOLN ONE (09:01)
[2017-12-13] MEDS ORDERED: MIDAZOLAM 2 MG/2 ML (VERSED) VIAL ONE (09:02)
[2017-12-13] MEDS ORDERED: fentaNYL INJECTION 100 MCG/2 ML AMP ONE (09:02)
[2017-12-13] MEDS ORDERED: ONDANSETRON 4 MG/2 ML (SDV) Z0FRAN ONE (09:03)
[2017-12-13] MEDS ORDERED: GLYCOPYRROLATE 0.2 MG/ML (ROBINUL) 2 ML VIAL ONE (10:55)
[2017-12-13] MEDS ORDERED: NEOSTIGMINE (BLOXIVERZ ) 1 MG/1ML 10 ML VIAL ONE (10:55)
--- NOTE | 2017-12-13 10:59 | Progress Note-Post Operative ---
Post-Operative Progess Note Surgeon (s)/[employer] Laborer (s) Surgeon KATTY PACK DO [employer] Laborer: Dr. Corea Pre-Operative Diagnosis incisional hernia Post-Operative Diagnosis incarcerated incisional hernia Procedure & Operative Findings Date of Procedure 12/13/17 Procedure Performed/Findings laparoscopic incarcerated incisional hernia repair Anesthesia Type gen Estimated Blood Loss Estimated blood loss (mL): min Specimens/Packing Specimens Removed na KATTY PACK DO Dec 13, 2017 10:59
[2017-12-13] MEDS ORDERED: ACHD5005 PO (11:00)
[2017-12-13] MEDS ORDERED: DOCU-143 PO (11:00)
--- NOTE | 2017-12-13 11:02 | Discharge Inst-Simple/Standard ---
Discharge Inst-Standard Discharge Medications New, Converted or Re-Newed RX: RX on Chart Patient Instructions/Follow Up Plan of Care/Instructions/FU: 2-3 weeks Patrick Activity as Tolerated: No Discharge Diet: Regular Diet Other Inst to Patient Follow up Appt: Make appointment for 2 week. Instructions: No lifting greater than 10 pounds. No strenuous activity. May shower in 24 hours, no tub bath or soaking. Use incentive spirometer at home as directed. No Smoking Skin/Wound Care: You have special glue over incisions it will fall off on its own. Symptoms to Report: Appetite Changes, Extremity Discoloration, Numbness/Tingling, Swelling Increased , Bleeding Excessive, Eyesight Changes, Pain Increased, Urine Color Change, Constipation(Persistent), Fever over 101 degree F, Pain/Pressure in chest, Urinating Difficulty, Cough Up/Vomit Blood, Heart Beat Irreg/Pounding, Pain/ Pressure in jaw, Vaginal Bleeding Increase, Cramps in feet or legs, Lightheadedness, Pain/Pressure in shoulder, Diarrhea(Persistent), Memory Changes Suddenly, Questions/Concerns, Weight gain consecutive days, Dizziness/ Fainting, Nausea/Vomiting, Shortness of Breath, Weight gain over 2 pounds If questions or concerns contact your physician Or seek help at emergency department. KATTY PATRICK DO Dec 13, 2017 11:02
[2017-12-13] MEDS ORDERED: ONDANSETRON 4 MG/2 ML (SDV) Z0FRAN IVP PRN (11:30)
[2017-12-13] MEDS: morphine INJ 10 MG/ML 1ML (SYR OR VIAL) IVP PRN ×2 (11:30→11:35)
[2017-12-13] MEDS ORDERED: LIDOCAINE 1% INJ 20 ML (XYLOCAINE) VIAL INJ ONE (12:00)
[2017-12-13] MEDS ORDERED: BUPIVACAINE 0.5% 30 ML (SENSORCAINE) VIAL INJ ONE (12:00)
[2017-12-13 12:05] VITALS: BP 123/71
[2017-12-13 12:35] VITALS: BP 125/72
[2017-12-13 13:15] VITALS: BP 125/72
--- NOTE | 2017-12-13 21:48 | OPERATIVE REPORT ---
DATE OF SERVICE: 12/13/2017 PREOPERATIVE DIAGNOSIS: Incarcerated incisional hernia. POSTOPERATIVE DIAGNOSIS: Incarcerated incisional hernia. PROCEDURE: Laparoscopic incarcerated incisional hernia repair. SURGEON: Katty Patrick DO. WEIGHT LOSS CONSULTANT: Dr. Corea assisted in retraction, dissection and closure. ANESTHESIA: General. ESTIMATED BLOOD LOSS: Minimal. COMPLICATIONS: None. INDICATIONS: The patient is a 67-year-old male with an incisional hernia. He was explained risks and benefits of procedure and wished to proceed with the procedure. Consent was signed and on the chart. DESCRIPTION OF PROCEDURE: The patient was taken to the operating suite, was prepped and draped in sterile fashion. Surgical pause was performed. Local anesthetic was used to infiltrate into the left upper quadrant. A 15-blade scalpel was used to make a small skin incision in the left upper quadrant. A Veress needle was inserted in the abdomen. This was difficult to tell if it was in proper place. Therefore, a Sharmin technique was then used. Once the abdomen was entered, a balloon trocar was inserted and pneumoperitoneum was achieved. A scope was inserted into the abdomen demonstrating the incisional hernia just to the right of the umbilicus, had omental fat that was stuck within it. The distal portion was still viable; however, though. It was non-strangulated, just incarcerated. Harmonic was then used to dissect around the hernia also reducing the hernia contents. A stab incision was made around the umbilicus and a Jovon-Derick and 0 Vicryl were placed in a [id number] fashion to close the defect. A second 0 Vicryl was used to finish closing it. At this time, a 4-inch echo Ventralight mesh was inserted into the abdomen and grasped with a Jovon-Derick, brought out through the same stab incision. The balloon was inflated and SecureStrap Tacker was then used to circumferentially go around the mesh. The balloon was then removed and an inner crown was created as well. The 12 mm fascial defect in the left upper quadrant from the Sharmin technique was then closed using 0 Vicryl with a Jovon-Derick after the trocar was removed. The abdomen was then desufflated, the trocars were removed. The skin was then closed using 4-0 Monocryl in a subcuticular fashion. The abdomen was washed and dried and Dermabond was placed over the incisions. The patient tolerated procedure well without any complications and he was taken to recovery room in stable condition. Job ID: [id number] DocumentID: [id number] Dictated Date: 12/13/2017 14:39:38 Bellman Driver Date: 12/13/2017 21:47:22 Dictated By: KATTY PATRICK DO
== END 2017-12-13 13:13 | disposition home or self-care (01) ==
LOC: SDC 07:00
PROVIDERS: ATTEND Surgery
DX: K43.0 Incisional hernia with obstruction, without gangrene (principal); E11.43 Type 2 diabetes mellitus with diabetic autonomic (poly)neuropathy; J45.909 Unspecified asthma, uncomplicated; J44.9 Chronic obstructive pulmonary disease, unspecified; E78.5 Hyperlipidemia, unspecified; I10 Essential (primary) hypertension; G47.33 Obstructive sleep apnea (adult) (pediatric); E03.9 Hypothyroidism, unspecified; G20 Parkinson's disease; K21.9 Gastro-esophageal reflux disease without esophagitis; Z79.4 Long term (current) use of insulin; Z79.899 Other long term (current) drug therapy; Z87.891 Personal history of nicotine dependence
CPT/HCPCS: 82962

== ENCOUNTER → 2018-04-09 | Outpatient (CLI) | payer MEDICARE, OTHER ==
[~2018-04-09] MED LIST changes: +ACHD5005 PO; +DOCU-143 PO; -METF500T4 PO; +METF500T5 PO
--- NOTE | 2018-04-09 08:44 | Diagnostic Imaging Report ---
INDICATION: Elevated liver enzymes. COMPARISON: None. PROCEDURE: Real-time grayscale and Doppler imaging of the right upper quadrant is performed. The liver appears unremarkable. No focal hepatic mass is seen. The common bile duct is not well seen, however there is no gross biliary dilatation. The gallbladder is absent. The pancreas is not well visualized. Visualized portions appear unremarkable. The right kidney measures 11.9 cm in length and appears normal. There is no ascites or sonographic Franklin's sign. IMPRESSION: Status post cholecystectomy. No acute abnormalities demonstrated. The common bile duct and pancreas are not well visualized. Dictated by: Dictated on workstation # [id number]
== END ==
LOC: RAD 06:34
PROVIDERS: ATTEND Nurse Practitioner Family
DX: R74.8 Abnormal levels of other serum enzymes (principal); Z90.49 Acquired absence of other specified parts of digestive tract
CPT/HCPCS: 76705

== ENCOUNTER → 2018-06-07 | Outpatient (CLI) | payer MEDICARE, OTHER ==
[~2018-06-07] MED LIST changes: +TRAZ-190 PO; -TRAZ100T92 PO
--- NOTE | 2018-06-07 16:48 | Diagnostic Imaging Report ---
PROCEDURE: CT abdomen and pelvis without contrast. TECHNIQUE: Multiple contiguous axial images were obtained through the abdomen and pelvis without the use of intravenous contrast. INDICATION: Generalized abdominal pain. Abdominal tenderness. Loss of appetite. COMPARISON: 11/19/2017 FINDINGS: Included portions of the lung bases show micronodules within the bilateral lower lobes (images 3 and 5, series 2). These are stable when compared to 11/19/2017. CT abdomen: The kidneys, adrenal glands, spleen, pancreas, and liver have an unremarkable noncontrast CT appearance. Small bowel loops are nondistended. Normal appendix is identified. There is no loculated fluid collection, free fluid, nor free air within the abdomen. No abnormal mesenteric or retroperitoneal adenopathy is seen. There is mild to moderate calcified aortic and arterial atherosclerosis. Bony structures show no acute abnormalities. Note is made of focal cutaneous thickening with induration of the adjacent subcutaneous fat in the anterior left lower abdominal quadrant (image 70, series 2). This is new when compared to prior exam. CT pelvis: Urinary bladder is unopacified. No calculi are seen within the urinary bladder. There is no loculated fluid collection, free fluid, nor free air within the pelvis. No abnormal lymph nodes are identified. Bony structures show no acute abnormalities. IMPRESSION: 1. Focal skin thickening with induration of the adjacent subcutaneous fat in the anterior left lower abdominal quadrant. Findings are nonspecific and can be seen with previous trauma to this area, as well as cellulitis. Clinical correlation recommended. 2. Otherwise, no acute abnormalities are seen within the abdomen or pelvis. 3. Small micronodules within the visualized portions of the bilateral lower lobes as described above. Dictated by: Dictated on workstation # [id number]
== END ==
LOC: RAD 08:06
PROVIDERS: ATTEND Nurse Practitioner Family
DX: R10.84 Generalized abdominal pain (principal); R10.819 Abdominal tenderness, unspecified site; R63.0 Anorexia; R91.8 Other nonspecific abnormal finding of lung field
CPT/HCPCS: 74176

== ENCOUNTER → 2018-06-14 | Outpatient (CLI) | payer MEDICARE, OTHER ==
--- NOTE | 2018-06-14 12:51 | Diagnostic Imaging Report ---
PROCEDURE: CT chest without contrast. TECHNIQUE: Multiple contiguous axial images were obtained through the chest without the use of intravenous contrast. INDICATION: Nodular radiographic density. Patient also has history of emphysema and unintentional weight loss. Comparison is made with prior CT chest from 11/19/2017. No axillary lymphadenopathy is detected. No definite mediastinal or hilar lymphadenopathy is seen. No pericardial or pleural fluid is identified. 3 mm nodule in the right upper lobe, image 12, series 2 is stable. Tiny nodule more medial and inferior in the right upper lobe is stable, image 24. Posterolateral nodules in the right lower lobe, image 32 and 33 are stable. Micronodules left lower lobe image 33 and 35 are stable. No new mass is detected. No infiltrates are identified. The upper abdomen is unremarkable. IMPRESSION: Stable micronodules when compared with prior CT chest from 11/19/2017. Additional followup in 6-12 months could be performed to confirm stability. Dictated by: Dictated on workstation # [id number]
== END ==
LOC: RAD 12:07
PROVIDERS: ATTEND Nurse Practitioner Family
DX: J43.9 Emphysema, unspecified (principal); R63.4 Abnormal weight loss; R91.8 Other nonspecific abnormal finding of lung field
CPT/HCPCS: 71250

== ENCOUNTER 2020-06-13 15:42 | Emergency (ER) | payer MEDICARE, OTHER ==
[~2020-06-13] VITALS: Ht 177 cm; Wt 80.7 kg
[~2020-06-13 15:42] MED LIST changes: +METF-397 PO; -METF500T5 PO; +OMEP20CA18 PO; -TRAZ-190 PO; +TRAZ-227 PO; +TRM50T PO
--- OUTSIDE RECORDS SUMMARY | 2020-06-13 15:51 | XMS REPORT ---
Author Author Jah Durant Doctor Organization [facility] Address Unknown Phone Unavailable Care Team Providers Care Clerk To Justice Name Role Phone Migration, Doctor Unavailable Unavailable PROBLEMS Type Condition ICD9-CM Code DDH46-HB Code Onset Dates Condition S tatus SNOMED Code Problem Neuropathy G62.9 Active 266718587 Problem Chronic pain G89.29 Active 8674785 1 Problem Overactive bladder N32.81 Active 2 08558826 Problem Hypothyroid E03.9 Active 07017178 Problem Gastroesophageal reflux disease with esophagitis K 21.0 Active 039798186 Problem Mixed hyperlipidemia E78.2 Active 274381478 Problem Type 2 diabetes mellitus with hyperglycemia E11.65 Active 35785381 Problem Essential (primary) hypertension I10 Active 46389514 Problem Anxiety disorder, unspecified type F41.9 Active 018362285 Problem alf (current) use of insulin Z79.4 Active 104452442 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 Active 964054541 Problem Ulcer of foot, limited to breakdown of skin, uns pecified laterality L97.501 Active 72824863 Problem Irritable bowel syndrome with diarrhea K58.0 Active 170092245 Problem Gastroparesis K31.84 Active 801955 006 Problem 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 Active 451974534 Problem Chronic obstructive pulmonary disease, unspecified COPD ty pe J44.9 Active 38471440 Problem Major depressive disorder, recurrent, in full remission F33.42 Active [id number] ALLERGIES No Information ENCOUNTERS Encounter Location Date Diagnosis [facility] [address] [facility] [id number] [address] [place] [address] May, Chronic pain G89.29 [facility] [address] [facility] [id number] [address] [place] [address] 16 May, 2020 Type 2 diabetes mellitus wit h hyperglycemia E11.65 ; Irritable bowel syndrome with diarrhea K58.0 and Neuropathy G62.9 [facility] [address] [facility] [id number] [address] [place] [address] Apr, Chronic pain G89.[id number] [place] [address] Apr, Chronic pain G89.29 [facility] ([facility] [address] [facility] [id number] [address] [place] [address] March, Ulcer of foot, limited to br eakdown of skin, unspecified laterality L97.501 [facility] [address] [facility] [id number] [address] [place] [address] March, Chronic pain G89.29 [place] [address] [facility] [id number] [address] [place] [address] Feb, Chronic pain G89.29 [place] [address] [facility] [id number] [address] [place] [address] Jan, Type 2 diabetes mellitus wit h hyperglycemia E11.65 ; protective signal operations supervisor (current) use of insulin Z79.4 and Hyperkalemia E87.5 [place] [address] [place] [id number] [address] [place] [address] 10 Jan, 2020 Type 2 diabetes mellitus wit h diabetic autonomic (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 ; Hypothyroid E03.9 ; Dyshydrosis L30.1 and Irritable bowel syndrome with diarrhea K58.0 [place] [address] [place] [id number] [address] [place] [address] 05 Jan, 2020 Chronic pain G89.29 [place] [address] [facility] [id number] [address] [place] [address] Dec, Chronic pain G89.29 [place] [address] [facility] [id number] [address] [place] [address] Dec, [place] [address] [place] [id number] [address] [place] [address] Dec, [place] [address] [facility] [id number] [address] [place] [address] Nov, Chronic pain G89.29 [facility] [address] [id number] [address] [place] [address] Oct, Chronic pain G89.29 [facility] [address] [facility] [id number] [address] [place] [address] Sep, Chronic pain G89.29 [facility] [address] [facility] [id number] [address] [place] [address] Sep, Type 2 diabetes mellitus wit h diabetic autonomic (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 ; Irritable bowel syndrome with diarrhea K58.0 ; Essential (primary) hypertension I10 and Encounter for immunization Z23 [facility] [address] [facility] [id number] [address] [place] [address] Aug, Chronic pain G89.29 [facility] [address] [facility] [id number] [address] [place] [address] Aug, [facility] [address] [facility] [id number] [address] [place] [address] Jul, Chronic pain G89.29 [facility] [address] [id number] [address] [place] [address] Jun, Other chronic pain G89.29 [facility] [address] [facility] [id number] [address] [place] [address] Jun, [facility] [address] [facility] [id number] [address] [place] [address] Jun, Chronic pain G89.29 [facility] [address] [id number] [address] [place] [address] Jun, Neuropathy G62.9 [facility] [address] [facility] [id number] [address] [place] [address] 06 Jun, 2019 Encounter for Medicare annua wellness exam Z00.00 ; Type 2 diabetes mellitus with hyperglycemia E11.65 ; Mixed hyperlipidemia E78.2 ; Hypothyroid E03.9 ; Gastroesophageal reflux disease with esophagitis K21.0 ; Essential (primary) hypertension I10 ; Major depressive disorder, recurrent, in full remission F33.42 ; Chronic obstructive pulmonary disease, unspecified COPD type J44.9 ; Neuropathy G62.9 and Encounter for immunization Z23 [place] [address] [facility] [id number] [address] [place] [address] Jun, Irritable bowel syndrome wit h diarrhea K58.0 [place] [address] [facility] [id number] [address] [place] [address] May, Chronic pain G89.29 [place] [address] [facility] [id number] [address] [place] [address] May, Type 2 diabetes mellitus wit h hyperglycemia E11.65 and Neuropathy G62.9 [place] [address] [facility] [id number] [address] [place] [phone] May, Chronic pain G89.29 [place] [address] [facility] [id number] [address] [place] [address] Apr, Poison maryam dermatitis L23.7 [place] [address] [facility] [id number] [address] [place] [address] Apr, Chronic pain G89.29 [place] [address] [facility] [id number] [address] [place] [address] March, Type 2 diabetes mellitus wit h hyperglycemia E11.65 [place] [address] [facility] [id number] [address] [place] [address] March, Chronic pain G89.29 [place] [address] [facility] [id number] [address] [place] [address] March, [id number] [place] [address] Feb, [place] [address] [facility] [id number] [address] [place] [address] Feb, Other chronic pain G89.29 an d Chronic pain G89.29 [place] [address] [facility] [id number] [address] [place] [address] Jan, Mixed hyperlipidemia E78.2 [facility] [address] [facility] [id number] [address] [place] [address] 11 Jan, 2019 Chronic pain G89.29 [facility] [address] [facility] [id number] [address] [place] [address] 08 Jan, 2019 Type 2 diabetes mellitus wit h hyperglycemia E11.65 ; Mixed hyperlipidemia E78.2 ; 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 ; Acquired hypothyroidism E03.9 and Essential (primary) hypertension I10 [facility] [address] [facility] [id number] [address] [place] [address] 11 Dec, 2018 Chronic pain G89.29 [place] [address] [facility] [id number] [address] [place] [address] 14 Nov, 2018 Chronic pain G89.29 [place] [address] [place] [id number] [address] [place] [address] Nov, [facility] ([facility] [id number] [place] [address] Oct, Chronic pain G89.29 [facility] [address] [facility] [id number] [address] [place] [address] Oct, [facility] [address] [facility] [id number] [address] [place] [address] Sep, [facility] [address] [facility] [id number] [address] [place] [address] Sep, Type 2 diabetes mellitus wit h hyperglycemia E11.65 [facility] [address] [facility] [id number] [address] [place] [address] 16 Sep, 2018 Chronic pain G89.29 [facility] [address] [facility] [id number] [address] [place] [address] Sep, [facility] [address] [facility] [id number] [address] [place] [address] Sep, Type 2 diabetes mellitus wit h hyperglycemia E11.65 ; Irritable bowel syndrome with diarrhea K58.0 ; Gastroparesis K31.84 ; 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 and Dermatitis L30.9 [place] [address] [facility] [id number] [address] [place] [address] Aug, Chronic pain G89.29 [place] [address] [facility] [id number] [address] [place] [address] Jul, Chronic pain G89.29 [place] [address] [facility] [id number] [address] [place] [address] Jun, Type 2 diabetes mellitus wit h hyperglycemia E11.65 ; Neuropathy G62.9 ; Recurrent major depressive disorder, in partial remission F33.41 ; Chronic pain G89.29 and Hypertriglyceridemia E78.1 [place] [address] [place] [id number] [address] [place] [address] Jun, Hypothyroid E03.9 [place] [address] [place] [id number] [place] [address] Jun, Major depressive disorder, r ecurrent episode, moderate F33.1 and Anxiety disorder, unspecified type F41.9 [place] [address] [place] [id number] [address] [place] [address] Jun, [place] [address] [place] [id number] [address] [place] [address] Jun, Type 2 diabetes mellitus wit h hyperglycemia E11.65 ; 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 ; Recurrent major depressive disorder, in partial remission F33.41 ; Hypothyroid E03.9 ; Candidal dermatitis B37.2 and Weakness generalized R53.1 [place] [address] [facility] [id number] [address] [place] [address] May, [place] [address] [facility] [id number] [address] [place] [address] May, [place] [address] [place] [id number] [address] [place] [address] May, [place] [address] [place] [id number] [address] [place] [address] May, Generalized abdominal pain R 10.84 and Candidal dermatitis B37.2 [facility] [address] [facility] [id number] [address] [place] [address] May, [facility] [address] [facility] [id number] [address] [place] [address] May, [place] [address] [facility] [id number] [address] [place] [address] May, Nodular radiologic density R 93.8 ; Weight loss, unintentional R63.4 and Pulmonary emphysema, unspecified emphysema type J43.9 [place] [address] [facility] [id number] [address] [place] [address] May, Chronic pain G89.29 [place] [address] [place] [id number] [address] [place] [address] May, Syncope and collapse R55 ; C hronic fatigue R53.[address] lung screening R91.8 [place] [address] [facility] [id number] [address] [place] [address] May, [place] [address] [facility] [id number] [address] [place] [address] Apr, Chronic fatigue R53.82 ; Abn ormal chest CT R93.8 ; Elevated erythrocyte sedimentation rate R70.0 ; Hypothyroid E03.9 and Recurrent major depressive disorder, in partial remission F33.41 [place] [address] [facility] [id number] [address] [place] [address] Apr, Hypothyroid E03.9 [place] [address] [facility] [id number] [address] [place] [address] Apr, Depression F32.9 [place] [address] [facility] [id number] [address] [place] [address] Apr, [place] [address] [facility] [id number] [address] [place] [address] March, [place] [address] [facility] [id number] [address] [place] [address] March, Hypothyroid E03.9 [place] [address] [facility] [id number] [address] [place] [address] March, Diabetes mellitus E11.9 and Hypothyroid E03.9 [place] [address] [place] [id number] [address] [place] [address] March, Diabetes mellitus E11.9 [place] [address] [place] [id number] [address] [place] [address] March, Hypothyroid E03.9 and Elevat ed liver enzymes R74.8 [place] [address] [facility] [id number] [address] [place] [address] March, Type 2 diabetes mellitus wit h hyperglycemia E11.65 ; alf 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 Z79.4 ; Pulmonary emphysema, unspecified emphysema type J43.9 ; Hypothyroid E03.9 ; Neuropathy G62.9 ; Mixed hyperlipidemia E78.2 ; Chronic pain G89.29 ; Gastroesophageal reflux disease with esophagitis K21.0 ; Irritable bowel syndrome with diarrhea K58.0 ; Overactive bladder N32.81 and Recurrent major depressive disorder, in partial remission F33.41 [place] [address] [place] [id number] [address] [place] [address] Feb, Chronic pain G89.29 [place] [address] [place] [id number] [address] [place] [address] Feb, Type 2 diabetes mellitus wit h hyperglycemia E11.65 and Skin lesion of scalp L98.9 [place] [id number] [place] [address] Feb, [place] [address] [address] Jan, Type 2 diabetes mellitus wit h hyperglycemia E11.65 ; alf 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 Z79.4 ; Essential (primary) hypertension I10 ; Pulmonary emphysema, unspecified emphysema type J43.9 ; Chronic pain G89.29 ; Controlled substance agreement signed Z79.899 ; Hypothyroid E03.9 ; Neuropathy G62.9 ; Gastroesophageal reflux disease with esophagitis K21.0 ; Overactive bladder N32.81 ; Depression F32.9 and Irritable bowel syndrome with diarrhea K58.0 [place] [address] [facility] [id number] [address] [place] [address] Jan, [place] [address] [facility] [id number] [address] [place] [address] Jan, Controlled substance agreeme nt signed Z79.899 [place] [address] [facility] [id number] [address] [place] [address] Dec, Type 2 diabetes mellitus wit h hyperglycemia E11.65 ; Controlled substance agreement signed Z79.899 ; alf 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 Z79.4 ; Essential (primary) hypertension I10 ; Hypothyroid E03.9 ; Neuropathy G62.9 ; Depression F32.9 ; Mixed hyperlipidemia E78.2 ; Irritable bowel syndrome with diarrhea K58.0 ; Gastroesophageal reflux disease with esophagitis K21.0 ; Thrombocytosis D47.3 ; Current non-adherence to medical treatment Z91.19 and Overweight (BMI 25.0-29.9) E66.3 [place] [address] [facility] [id number] [address] [place] [address] 02 Dec, 2017 Controlled substance agreeme nt signed Z79.899 [place] [address] [facility] [id number] [address] [place] [address] Nov, Type 2 diabetes mellitus wit h hyperglycemia E11.65 and Current non- adherence to medical treatment Z91.19 [place] [address] [facility] [id number] [address] [place] [address] Nov, [place] [address] [facility] [id number] [address] [place] [address] Nov, Chronic pain G89.29 [place] [address] [facility] [id number] [address] [place] [address] Nov, [place] [address] [place] [id number] [address] [place] [address] Nov, Hypothyroid E03.9 [facility] [address] [facility] [id number] [address] [place] [address] Nov, Hypothyroid E03.9 [facility] [address] [facility] [id number] [address] [place] [address] Nov, Pulmonary emphysema, unspeci fied emphysema type J43.9 and Irritable bowel syndrome with diarrhea K58.0 [facility] [address] [id number] [address] [place] [address] Oct, [facility] [address] [facility] [id number] [address] [place] [address] Oct, [facility] [address] [facility] [id number] [address] [place] [address] Oct, [facility] [address] [facility] [id number] [address] [place] [address] Oct, [facility] [address] [facility] [id number] [address] [place] [address] Oct, Chronic pain G89.29 [facility] [address] [facility] [id number] [address] [place] [address] Oct, Diabetes mellitus E11.9 ; De pression F32.9 ; Mixed hyperlipidemia E78.2 ; Hypotension, unspecified hypotension type I95.9 ; Pulmonary emphysema, unspecified emphysema type J43.9 and Weight loss, unintentional R63.4 [facility] [address] [facility] [id number] [address] [place] [address] Oct, Chronic pain G89.29 [facility] [address] [facility] [id number] [address] [place] [address] Sep, Chronic pain G89.29 [facility] [address] [facility] [id number] [address] [place] [address] Sep, Hypothyroid E03.9 and Diabet es mellitus E11.9 [place] [address] [facility] [id number] [address] [place] [address] Aug, Type 2 diabetes mellitus wit h hyperglycemia E11.65 ; alf 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 Z79.4 ; Essential (primary) hypertension I10 ; Hypothyroid E03.9 ; Neuropathy G62.9 ; Chronic pain G89.29 ; Mixed hy perlipidemia E78.2 and Encounter for immunization Z23 [facility] [address] [facility] [id number] [address] [place] [address] Aug, Chronic pain G89.29 [facility] [address] [facility] [id number] [address] [place] [address] Aug, Overactive bladder N32.81 ; Diabetes mellitus E11.9 and Chronic pain G89.29 [facility] [address] [facility] [id number] [address] [place] [address] Jul, [facility] [address] [facility] [id number] [address] [place] [address] Jun, [facility] [address] [facility] [id number] [address] [place] [address] Jun, [facility] [address] [facility] [id number] [address] [place] [address] Jun, Hypothyroid E03.9 [facility] [address] [facility] [id number] [address] [place] [address] Jun, Diabetes mellitus E11.9 ; Hy pothyroid E03.9 ; Neuropathy G62.9 ; Chronic pain G89.29 and Neck mass R22.1 [facility] [address] [facility] [id number] [address] [place] [address] Apr, [facility] [address] [facility] [id number] [address] [place] [id number] Apr, Acute cystitis without hemat uria N30.00 [facility] ([facility] [address] [facility] [id number] [address] [place] [phone] March, [facility] ([facility] [address] [place] [id number] [address] [place] [phone] March, [facility] ([facility] [address] [place] [id number] [address] [place] [phone] March, Near syncope R55 [facility] ([facility] [address] [facility] [id number] [address] [place] [phone] Feb, [facility] ([facility] [address] [place] [id number] [place] [phone] Feb, Chronic pain G89.29 [facility] ([facility] [address] [place] [id number] [address] [place] [phone] Feb, [facility] ([facility] [address] [phone] Feb, [facility] ([facility] [address] [phone] Jan, Chronic pain G89.29 [facility] ([facility] [address] [place] [id number] [address] [place] [phone] Jan, [facility] ([facility] [address] [place] [id number] [address] [place] [phone] Jan, [facility] ([facility] [address] [place] [id number] [address] [place] [phone] Jan, Diabetes mellitus E11.9 ; Hy pothyroid E03.9 ; GERD (gastroesophageal reflux disease) K21.9 ; Insomnia G47.00 ; Functional 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 ; Neuropathy G62.9 ; Depression F32.9 ; Chronic pain G89.29 ; Irritable bowel syndrome with diarrhea K58.0 ; Overactive bladder N32.81 ; Mixed hyperlipidemia E78.2 and Bronchitis J40 [facility] ([facility] [address] [place] [id number] [address] [place] [phone] Dec, [facility] ([facility] [address] [place] [id number] [address] [place] [phone] Dec, [facility] ([facility] [address] [place] [id number] [address] [place] [phone] Dec, [facility] ([facility] [address] [facility] [id number] [address] [place] [phone] Dec, [facility] ([facility] [address] [facility] [facility] [id number] [address] [place] [address] Dec, Chronic pain G89.29 [facility] [address] [facility] [id number] [address] [place] [address] Dec, [facility] [address] [place] [id number] [address] [place] [address] Dec, [facility] [address] [address] Dec, Type 2 diabetes mellitus wit h foot ulcer E11.621 [facility] [address] [place] [id number] [address] [place] [address] 17 Dec, 2016 Type 2 diabetes mellitus wit h foot ulcer E11.621 [facility] [address] [place] [id number] [address] [place] [address] 14 Dec, 2016 HTN (hypertension) I10 ; Dep ression F32.9 ; Type 2 diabetes mellitus with foot ulcer E11.621 ; Functional 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 ; Irritable bowel syndrome with diarrhea K58.0 ; Chronic pain G89.29 ; Insomnia G47.00 ; Overactive bladder N32.81 ; Mixed hyperlipidemia E78.2 ; Gastroesophageal reflux disease with esophagitis K21.0 and Acquired hypothyroidism E03.9 [facility] [address] [place] [id number] [address] [place] [address] Nov, [facility] [id number] [place] [address] Oct, [facility] [address] [place] [id number] [address] [place] [address] Oct, [facility] [address] [place] [id number] [address] [place] [address] Oct, [facility] [address] [address] Sep, Functional 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 ; HTN (hypertension) I10 ; Diabetes mellitus E11.9 ; Depression F32.9 ; Overactive bladder N32.81 ; Mixed hyperlipidemia E78.2 ; Gastroesophageal reflux disease without esophagitis K21.9 ; Chronic pain G89.29 ; Insomnia G47.00 and Acquired hypothyroidism E03.9 [place] [address] [address] Sep, [place] [address] [address] Aug, Encounter for immunization Z [address] [address] 06 Aug, 2016 [place] [address] [address] Jul, [place] [address] [address] Jun, Type 2 diabetes mellitus wit hout complications E11.9 ; HTN (hypertension) I10 ; Hypothyroid E03.9 ; Neuropathy G62.9 ; Depression F32.9 ; Chronic pain G89.29 ; GERD (gastroesophageal reflux disease) K21.9 ; Insomnia G47.00 ; Overactive bladder N32.81 ; Mixed hyperlipidemia E78.2 ; Diarrhea of infectious origin A09 and Environmental allergies Z91.09 [place] [address] [address] Apr, [address] [address] March, Hypothyroidism, unspecified E03.9 and Mixed hyperlipidemia E78.2 [place] [address] [address] March, Diabetes mellitus E11.9 ; HT N (hypertension) I10 ; Hypothyroid E03.9 ; Depression F32.9 ; Overactive bladder N32.81 ; Other chronic pain G89.29 ; Lumbago with sciatica, unspecified side M54.40 ; Environmental allergies Z91.09 and Gastroesophageal reflux disease, esophagitis presence not specified K21.9 [place] [address] [place] [id number] [address] [place] [address] 06 Mar, 2016 [place] [address] [place] [id number] [address] [place] [address] Jan, HTN (hypertension) I10 ; Hyp othyroid E03.9 ; Neuropathy G62.9 ; Diabetes mellitus E11.9 ; Chronic pain G89.29 ; GERD (gastroesophageal reflux disease) K21.9 ; Overactive bladder N32.81 and Depression F32.9 [place] [address] [facility] [id number] [address] [place] [address] 12 Dec, 2015 Ear pain, left H92.02 ; HTN (hypertension) I10 ; Hypothyroid E03.9 ; Neuropathy G62.9 ; Diabetes mellitus E11.9 ; Depression F32.9 ; GERD (gastroesophageal reflux disease) K21.9 ; Insomnia G47.00 and Overactive bladder N32.81 [place] [address] [place] [id number] [address] [place] [address] 14 Nov, 2015 Overactive bladder N32.81 an d Chronic pain G89.29 [place] [address] [facility] [id number] [address] [place] [address] 11 Nov, 2015 Kidney failure N19 [place] [address] [place] [id number] [address] [place] [address] 08 Nov, 2015 [place] [address] [facility] [id number] [address] [place] [address] Nov, [place] [address] [place] [id number] [address] [place] [address] Nov, Diabetes mellitus E11.9 ; De pression F32.9 ; Chronic pain G89.29 ; GERD (gastroesophageal reflux disease) K21.9 ; Insomnia G47.00 ; HTN (hypertension) I10 ; Hypothyroid E03.9 ; COPD (chronic obstructive pulmonary disease) J44.9 ; Bladder incontinence R32 and Incontinence R32 [place] [address] [address] Sep, Type 2 diabetes mellitus wit h foot ulcer E11.621 and Chromosomal abnormality, 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 [place] [address] [address] Sep, [place] [address] [address] Aug, [place] [address] [address] Aug, [address] [address] Aug, HTN (hypertension) I10 ; Enc ounter for immunization Z23 ; Hypothyroid E03.9 ; Neuropathy G62.9 ; Diabetes mellitus E11.9 ; Depression F32.9 ; Chronic pain G89.29 ; GERD (gastroesophageal reflux disease) K21.9 ; Insomnia G47.00 and COPD (chronic obstructive pulmonary disease) J44.[address] [address] Jun, [address] [address] Jun, [address] [address] May, Essential hypertension, ivis gn 401.1 ; Unspecified hypothyroidism 244.9 ; Insomnia, unspecified 780.52 ; Shortness of breath 786.05 ; Depression 311 ; COPD (chronic obstructive pulmonary disease) 496 ; GERD (gastroesophageal reflux disease) 530.81 and Diabetes 1.5, 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 [place] [address] [address] May, [address] [address] May, [facility] [address] [facility] [id number] [address] [place] [address] May, Shortness of breath 786.05 ; Essential hypertension, benign 401.1 ; Diabetes mellitus 250.00 ; Hyperlipidemia 272.4 ; Hypothyroid 244.9 ; Insomnia 780.52 and Cough 786.2 [facility] [address] [facility] [id number] [address] [place] [address] Apr, [facility] [address] [facility] [id number] [address] [place] [address] March, Shortness of breath 786.05 ; Nausea with vomiting 787.01 ; Essential hypertension, benign 401.1 ; Diabetes mellitus 250.00 ; Hyperlipidemia 272.4 and Hypothyroid 244.9 [facility] [address] [facility] [id number] [address] [place] [address] Feb, [facility] [address] [facility] [id number] [address] [place] [address] Feb, [facility] [address] [facility] [id number] [address] [place] [address] Jan, [facility] [address] [facility] [id number] [address] [place] [address] Jan, [facility] [address] [facility] [id number] [address] [place] [address] Jan, [facility] [address] [facility] [id number] [address] [place] [address] Jan, [facility] [address] [facility] [id number] [address] [place] [address] Jan, [facility] [address] [facility] [id number] [address] [place] [address] Jan, [facility] [address] [facility] [id number] [address] [place] [address] Jan, [facility] [address] [facility] [id number] [address] [place] [address] Jan, [facility] [address] [id number] [address] [place] [address], [place] [address] Jan, 2014 [facility] [address] [id number] [address] [place] [address], [place] [address] Jan, 2014 [facility] [address] [id number] [address] [place] [address], [place] [address] Dec, 2014 [facility] [address] [id number] [address] [place] [address], [place] [address] Dec, 2014 [facility] [address] [id number] [address] [place] [address], [place] [address] Dec, 2014 [facility] [address] [id number] [address] [place] [address], [place] [address] Dec, 2014 [facility] [address] [id number] [address] [place] [address], [place] [address] Dec, 2014 [facility] [address] [id number] [address] [place] [address], [place] [address] Dec, 2014 [facility] [address] [id number] [address] [place] [address], [place] [address] Dec, 2014 [facility] [address] [id number] [address] [place] [address], [place] [address] Dec, 2014 [facility] [address] [id number] [address] [place] [address], [place] [address] Dec, 2014 [facility] [address] [id number] [address] [place] [address], [place] [address] Dec, 2014 [facility] [address] [id number] [address] [place] [address], [place] [address] Oct, [facility] [address] [id number] [address] [place] [address], [place] [address] Oct, [facility] [address] [id number] [address] [place] [address], [place] [address] Oct, [facility] [address] [id number] [address] [place] [address], [place] [address] Oct, [facility] [address] [id number] [address] [place] [address], [place] [address] Oct, [facility] [address] [id number] [address] [place] [address], [place] [address] Oct, [facility] [address] [id number] [address] [place] [address], [place] [address] Oct, [facility] [address] [id number] [address] [place] [address], [place] [address] Oct, [facility] [address] [id number] [address] [place] [address], [place] [address] Oct, [facility] [address] [id number] [address] [place] [address], [place] [address] Oct, [facility] [address] [id number] [address] [place] [address], [place] [address] Oct, [facility] [address] [id number] [address] [place] [address], [place] [address] Oct, [facility] [address] [id number] [address] [place] [address], [place] [address] Oct, [facility] [address] [id number] [address] [place] [address], [place] [address] Oct, [facility] [address] [id number] [address] [place] [address], [place] [address] Sep, [facility] [address] [id number] [address] [place] [address], [place] [address] Sep, [facility] [address] [id number] [address] [place] [address], [place] [address] Sep, [facility] [address] [id number] [address] [place] [address], [place] [address] Sep, [facility] [address] [id number] [address] [place] [address], [place] [address] Sep, [facility] [address] [id number] [address] [place] [address], [place] [address] Sep, [facility] [address] [id number] [address] [place] [address], [place] [address] Sep, [facility] [address] [id number] [address] [place] [address], [place] [address] Sep, [facility] [address] [id number] [address] [place] [address], [place] [address] Sep, [facility] [address] [id number] [address] [place] [address], [place] [address] Aug, [facility] [address] [id number] [address] [place] [address], [place] [address] Aug, [facility] [address] [id number] [address] [place] [address], [place] [address] Aug, [facility] [address] [id number] [address] [place] [address], [place] [address] Aug, [facility] [address] [id number] [address] [place] [address], [place] [address] Aug, [facility] [address] [id number] [address] [place] [address], [place] [address] Aug, [facility] [address] [id number] [address] [place] [address], [place] [address] Aug, [facility] [address] [id number] [address] [place] [address], [place] [address] Aug, [facility] [address] [id number] [address] [place] [address], [place] [address] Aug, [facility] [address] [id number] [address] [place] [address], [place] [address] Jul, [facility] [address] [id number] [address] [place] [address], [place] [address] 29 Jul, 2014 [facility] [address] [id number] [address] [place] [address], [place] [address] Jul, [facility] [address] [id number] [facility] [place] [address] Jul, [facility] [address] [id number] [address] [place] [address], [place] [address] Jul, [facility] [address] [id number] [address] [place] [address], [place] [address] Jul, [facility] [address] [id number] [address] [place] [address], [place] [address] Jul, [facility] [address] [id number] [address] [place] [address], [place] [address] Jul, [facility] [address] [id number] [address] [place] [address], [place] [address] Jul, [facility] [address] [id number] [address] [place] [address], [place] [address] Jul, [facility] [address] [id number] [address] [place] [address], [place] [address] Jun, [facility] [address] [id number] [address] [place] [address], [place] [address] Jun, [facility] [address] [id number] [address] [place] [address], [place] [address] Jun, [facility] [address] [id number] [address] [place] [address], [place] [address] Jun, [facility] [address] [id number] [address] [place] [address], [place] [address] Jun, [facility] [address] [id number] [address] [place] [address], [place] [address] Jun, [facility] [address] [id number] [address] [place] [address], [place] [address] Jun, [facility] [address] [id number] [address] [place] [address], [place] [address] Jun, [facility] [address] [id number] [facility] [place] [address] Jun, [facility] [address] [id number] [facility] [place] [address] Jun, [facility] [address] [id number] [facility] [place] [address] Jun, [facility] [address] [id number] [address] [place] [address], [place] [address] Jun, [facility] [address] [id number] [address] [place] [address], [place] [address] May, [facility] [address] [id number] [address] [place] [address], [place] [address] May, [facility] [address] [id number] [address] [place] [address], [place] [address] May, [facility] [address] [id number] [address] [place] [address], [place] [address] May, [facility] [address] [id number] [address] [place] [address], [place] [address] May, [facility] [address] [id number] [address] [place] [address], [place] [address] May, [facility] [address] [id number] [address] [place] [address], [place] [address] March, [facility] [address] [id number] [address] [place] [address], [place] [address] March, [facility] [address] [id number] [address] [place] [address], [place] [address] March, [facility] [address] [id number] [address] [place] [address], [place] [address] March, [facility] [address] [id number] [address] [place] [address], [place] [address] March, [facility] [address] [id number] [address] [place] [address], [place] [address] March, [facility] [address] [id number] [facility] [place] [address] Feb, [facility] [address] [id number] [address] [place] [address], [place] [address] Feb, [facility] [address] [id number] [address] [place] [address], [place] [address] Feb, [facility] [address] [id number] [address] [place] [address], [place] [address] Feb, [facility] [address] [id number] [address] [place] [address], [place] [address] Jan, [facility] [address] [id number] [address] [place] [address], [place] [address] Jan, [facility] [address] [id number] [address] [place] [address], [place] [address] Jan, [facility] [address] [id number] [address] [place] [address], [place] [address] Jan, [facility] [address] [id number] [address] [place] [address], [place] [address] Jan, [facility] [address] [id number] [address] [place] [address], [place] [address] Jan, [facility] [address] [id number] [address] [place] [address], [place] [address] Jan, [facility] [address] [id number] [address] [place] [address], [place] [address] Jan, [facility] [address] [id number] [address] [place] [address], [place] [address] Jan, [facility] [address] [id number] [address] [place] [address], [place] [address] Jan, [facility] [address] [id number] [address] [place] [address], [place] [address] Jan, [facility] [address] [id number] [address] [place] [address], [place] [address] Jan, [facility] [address] [id number] [address] [place] [address], [place] [address] Dec, [facility] [address] [id number] [address] [place] [address], [place] [address] Dec, [facility] [address] [id number] [address] [place] [address], [place] [address] Dec, [facility] [address] [id number] [address] [place] [address], [place] [address] Dec, [facility] [address] [id number] [address] [place] [address], [place] [address] Dec, [facility] [address] [id number] [address] [place] [address], [place] [address] Dec, [facility] [address] [id number] [address] [place] [address], [place] [address] Nov, [facility] [address] [id number] [address] [place] [address], [place] [address] Nov, [facility] [address] [id number] [address] [place] [address], [place] [address] Oct, [facility] [address] [id number] [address] [place] [address], [place] [address] Oct, [facility] [address] [id number] [address] [place] [address], [place] [id number] Oct, [facility] [address] [id number] [address] [place] [address], [place] [id number] Oct, [facility] [address] [id number] [address] [place] [address], [place] [id number] Oct, [facility] [address] [id number] [address] [place] [address], [place] [id number] Oct, [facility] [address] [id number] [address] [place] [address], [place] [id number] Sep, [facility] [address] [id number] [address] [place] [address], [place] [id number] Sep, [facility] [address] [id number] [address] [place] [address], [place] [id number] Sep, [facility] [address] [id number] [address] [place] [address], [place] [id number] Sep, [facility] [address] [id number] [address] [place] [address], [place] [id number] Aug, [facility] [address] [id number] [address] [place] [address], [place] [address] Aug, [facility] [address] [id number] [address] [place] [address], [place] [address] Aug, [facility] [address] [id number] [address] [place] [address], [place] [id number] Jul, [facility] [address] [id number] [address] [place] [address], [place] [id number] 14 Jul, 2013 [facility] [address] [id number] [address] [place] [address], [place] [id number] Jul, [facility] [address] [id number] [address] [place] [address], [place] [id number] Jun, [facility] [address] [id number] [address] [place] [address], [place] [id number] Jun, [facility] [address] [id number] [address] [place] [address], [place] [id number] Jun, [facility] [address] [id number] [address] [place] [address], [place] [id number] Apr, [facility] [address] [id number] [address] [place] [address], [place] [id number] Apr, [facility] [address] [id number] [address] [place] [address], [place] [id number] March, [facility] [address] [id number] [address] [place] [address], [place] [id number] March, [facility] [address] [id number] [address] [place] [address], [place] [id number] March, [facility] [address] [id number] [address] [place] [address], [place] [id number] March, [facility] [address] [id number] [address] [place] [address], [place] [id number] Feb, [facility] [address] [id number] [address] [place] [address], [place] [id number] Jan, [facility] [address] [id number] [address] [place] [address], [place] [id number] Dec, [facility] [address] [id number] [address] [place] [address], [place] [id number] Dec, [facility] [address] [id number] [address] [place] [address], [place] [id number] Dec, [facility] [address] [id number] [address] [place] [address], [place] [id number] Nov, [facility] [address] [id number] [address] [place] [address], [place] [id number] Oct, [facility] [address] [id number] [address] [place] [address], [place] [id number] Oct, [facility] [address] [id number] [address] [place] [address], [place] [id number] Sep, [facility] [address] [id number] [address] [place] [address], [place] [id number] Sep, [facility] [address] [id number] [address] [place] [address], [place] [id number] Sep, [facility] [address] [id number] [address] [place] [address], [place] [id number] Sep, [facility] [address] [id number] [address] [place] [address], [place] [id number] Sep, [facility] [address] [id number] [address] [place] [address], [place] [id number] Sep, [facility] [address] [id number] [address] [place] [address], [place] [id number] Sep, [facility] [address] [id number] [address] [place] [address], [place] [address] Aug, [facility] [address] [id number] [address] [place] [address], [place] [address] Aug, [facility] [address] [id number] [address] [place] [address], [place] [address] Aug, [facility] [address] [id number] [address] [place] [address], [place] [address] Aug, [facility] [address] [id number] [address] [place] [address], [place] [address] Aug, [facility] [address] [id number] [address] [place] [address], [place] [address] Aug, [facility] [address] [id number] [address] [place] [address], [place] [address] Aug, [facility] [address] [id number] [address] [place] [address], [place] [address] Aug, [facility] [address] [id number] [address] [place] [address], [place] [address] Jul, [facility] [address] [id number] [address] [place] [address], [place] [address] Jul, [facility] [address] [id number] [address] [place] [address], [place] [address] Jun, [facility] [address] [id number] [address] [place] [address], [place] [address] May, [facility] [address] [id number] [address] [place] [address], [place] [address] Apr, [facility] [address] [id number] [address] [place] [address], [place] [address] Apr, [facility] [address] [id number] [address] [place] [address], [place] [address] Apr, [facility] [address] [id number] [address] [place] [address], [place] [address] March, [facility] [address] [id number] [address] [place] [address], [place] [address] March, [facility] [address] [id number] [address] [place] [address], [place] [address] March, [facility] [address] [id number] [address] [place] [address], [place] [address] March, [facility] [address] [id number] [address] [place] [address], [place] [address] March, [facility] [address] [id number] [address] [place] [address], [place] [address] March, [facility] [address] [id number] [address] [place] [address], [place] [address] March, [facility] [address] [id number] [address] [place] [address], [place] [address] Jan, [facility] [address] [id number] [address] [place] [address], [place] [address] Jan, [facility] [address] [id number] [address] [place] [address], [place] [address] Jan, [facility] [address] [id number] [address] [place] [address], [place] [address] Jan, [facility] [address] [id number] [address] [place] [address], [place] [address] Jan, [facility] [address] [id number] [address] [place] [address], [place] [address] Dec, [facility] [address] [id number] [address] [place] [address], [place] [address] Dec, [facility] [address] [id number] [address] [place] [address], [place] [id number] 18 Nov, 2011 [facility] [address] [id number] [address] [place] [address], [place] [id number] Nov, [facility] [address] [id number] [address] [place] [address], [place] [address] Nov, [facility] [address] [id number] [address] [place] [address], [place] [address] Nov, [facility] [address] [id number] [address] [place] [address], [place] [address] Oct, [facility] [address] [id number] [address] [place] [address], [place] [address] Oct, [facility] [address] [id number] [address] [place] [address], [place] [address] 14 Sep, 2011 [facility] [address] [id number] [address] [place] [address], [place] [address] Sep, [facility] [address] [id number] [address] [place] [address], [place] [address] Sep, [facility] [address] [id number] [address] [place] [address], [place] [address] May, [facility] [address] [id number] [address] [place] [address], [place] [address] Nov, [facility] [address] [id number] [address] [place] [address], [place] [id number] 29 Oct, 2010 [facility] [address] [id number] [address] [place] [address], [place] [id number] 14 Oct, 2010 [facility] [address] [id number] [address] [place] [address], [place] [id number] 08 Oct, 2010 [facility] [address] [id number] [address] [place] [address], [place] [address] 15 Sep, 2010 [facility] [address] [id number] [address] [place] [address], [place] [address] Sep, [facility] [address] [id number] [address] [place] [phone] Aug, [facility] [address] [id number] [address] [place] [id number] March, [facility] [address] [id number] [address] [place] [phone] Oct, [facility] [address] [id number] [address] [place] [id number] Oct, [facility] [address] [id number] [address] [place] [phone] Oct, [facility] [address] [id number] [address] [place] [phone] Oct, [facility] [address] [id number] [address] [place] [address] Sep, [facility] [address] [id number] [address] [place] [phone] Sep, [facility] [address] [id number] [address] [place] [phone] Sep, [facility] [address] [id number] [address] [place] [phone] Aug, [facility] [address] [id number] [address] [place] [phone] Aug, [facility] [address] [id number] [address] [place] [phone] Aug, [facility] [address] [id number] [address] [place] [phone] Jan, IMMUNIZATIONS No Known Immunizations SOCIAL HISTORY Never Assessed REASON FOR VISIT PLAN OF CARE VITAL SIGNS MEDICATIONS Unknown Medications RESULTS No Results PROCEDURES No Known procedures INSTRUCTIONS MEDICATIONS ADMINISTERED No Known Medications MEDICAL (GENERAL) HISTORY Type Description Date Medical History hypertension Medical History hyperlipidemia Medical History obesity Medical History type II diabetes Medical History fatty liver Medical History irritable bowel syndrome Medical History insomnia Medical History peripheral neuropathy Medical History chronic diarrhea Medical History Pulmonary emphysema, unspecified emphyse ma type Surgical History cholecystectomy (Emergent) 10/2014 Surgical History ENT surgery Surgical History hemorrhoidectomy Surgical History orthopedic surgery-L wrist as a child Surgical History left knee arthroscopy-torn cartilage Surgical History colonscopy-repeat in 10 years 09/2011 Surgical History tube in left ear 05/2016 Surgical History Abd hernia repair 12/2016 Hospitalization History surgeries
--- OUTSIDE RECORDS SUMMARY | 2020-06-13 15:52 | XMS REPORT ---
Author Author Jah Durant Doctor Organization [facility] Address Unknown Phone Unavailable Care Team Providers Care Application Performance Engineer Name Role Phone Migration, Doctor Unavailable Unavailable PROBLEMS Type Condition ICD9-CM Code JBB51-PT Code Onset Dates Condition S tatus SNOMED Code Problem Neuropathy G62.9 Active 272343570 Problem Chronic pain G89.29 Active 6760794 1 Problem Overactive bladder N32.81 Active 2 03958012 Problem Hypothyroid E03.9 Active 71263498 Problem Gastroesophageal reflux disease with esophagitis K 21.0 Active 511888699 Problem Mixed hyperlipidemia E78.2 Active 891910894 Problem Type 2 diabetes mellitus with hyperglycemia E11.65 Active 95891982 Problem Essential (primary) hypertension I10 Active 25651883 Problem Anxiety disorder, unspecified type F41.9 Active 192905503 Problem residential (current) use of insulin Z79.4 Active 808966562 Problem 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 Active 550713900 Problem Ulcer of foot, limited to breakdown of skin, uns pecified laterality L97.501 Active 96746795 Problem Irritable bowel syndrome with diarrhea K58.0 Active 712281670 Problem Gastroparesis K31.84 Active 148571 006 Problem 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 Active 226258676 Problem Chronic obstructive pulmonary disease, unspecified COPD ty pe J44.9 Active 56145973 Problem Major depressive disorder, recurrent, in full remission F33.42 Active 46692471 ALLERGIES No Information ENCOUNTERS Encounter Location Date Diagnosis [facility] [address] [facility] [id number] [address] [place] [id number] Apr, Chronic pain G89.[address] [id number] [address] Apr, Chronic pain G89.29 [facility] [address] [facility] [id number] [address] [place] [id number] March, Ulcer of foot, limited to br eakdown of skin, unspecified laterality L97.501 [facility] [address] [facility] [id number] [address] [place] [address] March, Chronic pain G89.29 [facility] [address] [facility] [id number] [address] [place] [address] Feb, Chronic pain G89.29 [facility] [address] [place] [id number] [address] [place] [id number] 13 Jan, 2020 Type 2 diabetes mellitus wit h hyperglycemia E11.65 ; terminal computer operator (current) use of insulin Z79.4 and Hyperkalemia E87.5 [place] [address] [address] 10 Jan, 2020 Type 2 diabetes mellitus wit h diabetic autonomic (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 ; Hypothyroid E03.9 ; Dyshydrosis L30.1 and Irritable bowel syndrome with diarrhea K58.0 [place] [address] [place] [id number] [address] [place] [id number] 05 Jan, 2020 Chronic pain G89.29 [place] [address] [place] [id number] [address] [place] [id number] 10 Dec, 2019 Chronic pain G89.29 [place] [address] [place] [id number] [address] [place] [id number] 07 Dec, 2019 [place] [address] [place] [id number] [address] [place] [phone] Dec, [facility] [address] [facility] [id number] [address] [place] [address] Nov, Chronic pain G89.29 [place] [address] [place] [id number] [address] [place] [address] Oct, Chronic pain G89.29 [place] [address] [place] [id number] [address] [place] [address] Sep, Chronic pain G89.29 [place] [address] [place] [id number] [address] [place] [address] Sep, Type 2 diabetes mellitus wit h diabetic autonomic (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 ; Irritable bowel syndrome with diarrhea K58.0 ; Essential (primary) hypertension I10 and Encounter for immunization Z23 [facility] [address] [facility] [id number] [address] [place] [id number] Aug, Chronic pain G89.29 [facility] [address] [facility] [id number] [address] [place] [phone] Aug, [facility] [address] [facility] [id number] [address] [place] [id number] Jul, Chronic pain G89.29 [facility] [address] [facility] [id number] [address] [place] [id number] Jun, Other chronic pain G89.29 [facility] [address] [facility] [id number] [address] [place] [phone] Jun, [facility] [address] [facility] [id number] [address] [place] [id number] Jun, Chronic pain G89.29 [facility] [address] [facility] [id number] [address] [place] [address] Jun, Neuropathy G62.9 [facility] [address] [facility] [id number] [address] [place] [id number] 06 Jun, 2019 Encounter for Medicare annua wellness exam Z00.00 ; Type 2 diabetes mellitus with hyperglycemia E11.65 ; Mixed hyperlipidemia E78.2 ; Hypothyroid E03.9 ; Gastroesophageal reflux disease with esophagitis K21.0 ; Essential (primary) hypertension I10 ; Major depressive disorder, recurrent, in full remission F33.42 ; Chronic obstructive pulmonary disease, unspecified COPD type J44.9 ; Neuropathy G62.9 and Encounter for immunization Z23 [facility] [address] [facility] [id number] [address] [place] [phone] 05 Jun, 2019 Irritable bowel syndrome wit h diarrhea K58.0 [facility] [address] [facility] [id number] [address] [place] [address] May, Chronic pain G89.29 [facility] [address] [facility] [id number] [address] [place] [address] May, Type 2 diabetes mellitus wit h hyperglycemia E11.65 and Neuropathy G62.9 [facility] [address] [id number] [address] [place] [id number] May, Chronic pain G89.29 [facility] [address] [id number] [address] [place] [address] Apr, Poison maryam dermatitis L23.7 [facility] [address] [facility] [id number] [address] [place] [address] Apr, Chronic pain G89.29 [facility] [address] [facility] [id number] [address] [place] [address] March, Type 2 diabetes mellitus wit h hyperglycemia E11.65 [facility] [address] [facility] [id number] [address] [place] [id number] March, Chronic pain G89.29 [facility] [address] [facility] [id number] [address] [place] [phone] March, [id number] [place] [phone] Feb, [facility] [address] [facility] [id number] [address] [place] [address] Feb, Other chronic pain G89.29 an d Chronic pain G89.29 [facility] [address] [facility] [id number] [address] [place] [address] Jan, Mixed hyperlipidemia E78.2 [facility] [address] [facility] [id number] [address] [place] [address] Jan, Chronic pain G89.29 [facility] [address] 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 [id number] [address] [place] [id number] 11 Dec, 2018 Chronic pain G89.29 [facility] [address] [facility] [id number] [address] [place] [id number] 14 Nov, 2018 Chronic pain G89.29 [facility] [address] [place] [id number] [address] [place] [phone] Nov, [facility] [address] [place] [id number] [address] [place] [id number] Oct, Chronic pain G89.29 [facility] [address] [place] [id number] [address] [place] [phone] Oct, [facility] [address] [place] [id number] [address] [place] [phone] Sep, [facility] [address] [place] [id number] [address] [place] [address] Sep, Type 2 diabetes mellitus wit h hyperglycemia E11.65 [place] [address] [address] Sep, Chronic pain G89.29 [facility] [address] [place] [id number] [address] [place] [id number] Sep, [facility] [address] [place] [id number] [address] [place] [address] Sep, Type 2 diabetes mellitus wit h hyperglycemia E11.65 ; Irritable bowel syndrome with diarrhea K58.0 ; Gastroparesis K31.84 ; 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 and Dermatitis L30.9 [facility] [address] [facility] [id number] [address] [place] [address] Aug, Chronic pain G89.29 [facility] [address] [place] [id number] [address] [place] [address] Jul, Chronic pain G89.29 [facility] [address] [facility] [id number] [address] [place] [address] Jun, Type 2 diabetes mellitus wit h hyperglycemia E11.65 ; Neuropathy G62.9 ; Recurrent major depressive disorder, in partial remission F33.41 ; Chronic pain G89.29 and Hypertriglyceridemia E78.1 [facility] [address] [facility] [id number] [address] [place] [id number] Jun, Hypothyroid E03.9 [place] [address] [facility] [id number] [address] [place] [id number] Jun, Major depressive disorder, r ecurrent episode, moderate F33.1 and Anxiety disorder, unspecified type F41.9 [place] [address] 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 [id number] [address] [place] [id number] May, [place] [address] [facility] [id number] [address] [place] [address] May, [place] [address] [facility] [id number] [address] [place] [id number] May, [place] [address] [facility] [id number] [address] [place] [id number] May, Generalized abdominal pain R 10.84 and Candidal dermatitis B37.2 [facility] [address] [facility] [id number] [address] [place] [phone] May, [place] [address] [place] [id number] [address] [place] [id number] May, [facility] [address] [id number] [address] [place] [id number] 13 May, 2018 Nodular radiologic density R 93.8 ; Weight loss, unintentional R63.4 and Pulmonary emphysema, unspecified emphysema type J43.9 [place] [address] [id number] [address] [place] [address] 10 May, 2018 Chronic pain G89.29 [place] [address] [id number] [address] [place] [id number] 09 May, 2018 Syncope and collapse R55 ; C hronic fatigue R53.[address] lung screening R91.8 [place] [address] [id number] [address] [place] [id number] May, [place] [address] [facility] [id number] [address] [place] [id number] Apr, Chronic fatigue R53.82 ; Abn ormal chest CT R93.8 ; Elevated erythrocyte sedimentation rate R70.0 ; Hypothyroid E03.9 and Recurrent major depressive disorder, in partial remission F33.41 [place] [address] [id number] [address] [place] [id number] Apr, Hypothyroid E03.9 [place] [address] [id number] [address] [place] [phone] Apr, Depression F32.9 [place] [address] [id number] [address] [place] [id number] Apr, [place] [address] [id number] [address] [place] [phone] March, [place] [address] [facility] [id number] [address] [place] [phone] March, Hypothyroid E03.9 [place] [address] [id number] [address] [place] [id number] March, Diabetes mellitus E11.9 and Hypothyroid E03.9 [place] [address] [place] [id number] [address] [place] [id number] March, Diabetes mellitus E11.9 [place] [address] [place] [id number] [address] [place] [id number] March, Hypothyroid E03.9 and Elevat ed liver enzymes R74.8 [place] [address] [place] [id number] [address] [place] [address] March, Type 2 diabetes mellitus wit h hyperglycemia E11.65 ; 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 ; Pulmonary emphysema, unspecified emphysema type J43.9 ; Hypothyroid E03.9 ; Neuropathy G62.9 ; Mixed hyperlipidemia E78.2 ; Chronic pain G89.29 ; Gastroesophageal reflux disease with esophagitis K21.0 ; Irritable bowel syndrome with diarrhea K58.0 ; Overactive bladder N32.81 and Recurrent major depressive disorder, in partial remission F33.41 [place] [address] [address] Feb, Chronic pain G89.29 [place] [address] [place] [id number] [place] [address] Feb, Type 2 diabetes mellitus wit h hyperglycemia E11.65 and Skin lesion of scalp L98.9 [place] [address] [place] [id number] [address] [place] [id number] Feb, [place] [address] [place] [id number] [address] [place] [address] Jan, Type 2 diabetes mellitus wit h hyperglycemia E11.65 ; 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 [id number] [address] [place] [address] Jan, Controlled substance agreeme nt signed Z79.899 [place] [address] [facility] [id number] [address] [place] [id number] 08 Dec, 2017 Type 2 diabetes mellitus wit h hyperglycemia E11.65 ; Controlled substance agreement signed Z79.899 ; residential 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 Z79.4 ; Essential (primary) hypertension I10 ; Hypothyroid E03.9 ; Neuropathy G62.9 ; Depression F32.9 ; Mixed hyperlipidemia E78.2 ; Irritable bowel syndrome with diarrhea K58.0 ; Gastroesophageal reflux disease with esophagitis K21.0 ; Thrombocytosis D47.3 ; Current non-adherence to medical treatment Z91.19 and Overweight (BMI 25.0-29.9) E66.3 [place] [address] [facility] [id number] [address] [place] [phone] 02 Dec, 2017 Controlled substance agreeme nt signed Z79.899 [place] [address] [facility] [id number] [address] [place] [id number] Nov, Type 2 diabetes mellitus wit h hyperglycemia E11.65 and Current non- adherence to medical treatment Z91.19 [place] [address] [facility] [id number] [address] [place] [phone] Nov, [place] [address] [facility] [id number] [address] [place] [address] Nov, Chronic pain G89.29 [place] [address] [facility] [id number] [address] [place] [phone] Nov, [place] [address] [facility] [id number] [address] [place] [address] Nov, Hypothyroid E03.9 [place] [address] [facility] [id number] [address] [place] [phone] Nov, Hypothyroid E03.9 [place] [address] [facility] [id number] [address] [place] [phone] Nov, Pulmonary emphysema, unspeci fied emphysema type J43.9 and Irritable bowel syndrome with diarrhea K58.0 [place] [address] [address] Oct, [place] [address] [place] [id number] [address] [place] [address] Oct, [place] [address] [address] Oct, [place] [address] [place] [id number] [place] [address] Oct, [place] [address] [address] Oct, Chronic pain G89.29 [place] [address] [address] Oct, Diabetes mellitus E11.9 ; De pression F32.9 ; Mixed hyperlipidemia E78.2 ; Hypotension, unspecified hypotension type I95.9 ; Pulmonary emphysema, unspecified emphysema type J43.9 and Weight loss, unintentional R63.4 [place] [address] [address] Oct, Chronic pain G89.29 [place] [address] [address] Sep, Chronic pain G89.29 [place] [address] [address] Sep, Hypothyroid E03.9 and Diabet es mellitus E11.9 [place] [address] [address] Aug, Type 2 diabetes mellitus wit h hyperglycemia E11.65 ; 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 [id number] [address] [place] [address] Aug, Chronic pain G89.29 [facility] [address] [place] [id number] [address] [place] [address] Aug, Overactive bladder N32.81 ; Diabetes mellitus E11.9 and Chronic pain G89.29 [facility] [address] [place] [id number] [address] [place] [phone] Jul, [facility] [address] [facility] [id number] [address] [place] [address] Jun, [facility] [address] [place] [id number] [place] [phone] Jun, [facility] [address] [place] [id number] [place] [phone] Jun, Hypothyroid E03.9 [facility] [address] [place] [id number] [place] [address] Jun, Diabetes mellitus E11.9 ; Hy pothyroid E03.9 ; Neuropathy G62.9 ; Chronic pain G89.29 and Neck mass R22.1 [facility] [address] [place] [id number] [address] [place] [address] Apr, [facility] [address] [place] [id number] [address] [place] [address] Apr, Acute cystitis without hemat uria N30.00 [facility] [address] [place] [id number] [address] [place] [id number] March, [facility] [address] [facility] [id number] [address] [place] [phone] March, [facility] [address] [place] [id number] [address] [place] [address] March, Near syncope R55 [facility] [address] [place] [id number] [address] [place] [phone] Feb, [facility] [address] [facility] [id number] [address] [place] [address] Feb, Chronic pain G89.29 [facility] [address] [facility] [id number] [address] [place] [phone] Feb, [facility] [address] [facility] [id number] [address] [place] [address] Feb, [facility] [address] [facility] [id number] [address] [place] [address] Jan, Chronic pain G89.29 [facility] [address] [facility] [id number] [address] [place] [address] Jan, [facility] [address] [place] [id number] [address] [place] [address] Jan, [facility] [address] [place] [id number] [address] [place] [address] Jan, Diabetes mellitus E11.9 ; Hy pothyroid E03.9 ; GERD (gastroesophageal reflux disease) K21.9 ; Insomnia G47.00 ; Functional 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 ; Neuropathy G62.9 ; Depression F32.9 ; Chronic pain G89.29 ; Irritable bowel syndrome with diarrhea K58.0 ; Overactive bladder N32.81 ; Mixed hyperlipidemia E78.2 and Bronchitis J40 [facility] [id number] [place] [phone] Dec, [facility] [address] [facility] [id number] [address] [place] [phone] Dec, [facility] [address] [facility] [id number] [address] [place] [id number] Dec, [facility] [address] [place] [id number] [place] [id number] Dec, [facility] [address] [facility] [id number] [address] [place] [id number] Dec, Chronic pain G89.29 [facility] [id number] [place] [address] Dec, [facility] [address] [facility] [id number] [address] [place] [id number] Dec, [facility] [address] [facility] [id number] [address] [place] [phone] Dec, Type 2 diabetes mellitus wit h foot ulcer E11.621 [facility] [address] [place] [address] [id number] [place] [id number] 17 Dec, 2016 Type 2 diabetes mellitus wit h foot ulcer E11.621 [facility] [address] [place] [address] [id number] [address] [place] [id number] 14 Dec, 2016 HTN (hypertension) I10 ; Dep ression F32.9 ; Type 2 diabetes mellitus with foot ulcer E11.621 ; Functional 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 ; Irritable bowel syndrome with diarrhea K58.0 ; Chronic pain G89.29 ; Insomnia G47.00 ; Overactive bladder N32.81 ; Mixed hyperlipidemia E78.2 ; Gastroesophageal reflux disease with esophagitis K21.0 and Acquired hypothyroidism E03.9 [place] [id number] [place] [id number] [place] [phone] Nov, [facility] [address] [id number] [place] [phone] Oct, [place] [id number] [place] [id number] Oct, [place] [address] [place] [id number] [place] [id number] Oct, [facility] [address] [place] [id number] [address] [place] [address] Sep, Functional 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 ; HTN (hypertension) I10 ; Diabetes mellitus E11.9 ; Depression F32.9 ; Overactive bladder N32.81 ; Mixed hyperlipidemia E78.2 ; Gastroesophageal reflux disease without esophagitis K21.9 ; Chronic pain G89.29 ; Insomnia G47.00 and Acquired hypothyroidism E03.9 [place] [id number] [address] [place] [address] 04 Sep, 2016 [place] [address] [address] 11 Aug, 2016 Encounter for immunization Z 23 [facility] [address] [place] [id number] [place] [address] 06 Aug, 2016 [place] [address] [address] 09 Jul, 2016 [place] [address] [address] Jun, Type 2 diabetes mellitus wit hout complications E11.9 ; HTN (hypertension) I10 ; Hypothyroid E03.9 ; Neuropathy G62.9 ; Depression F32.9 ; Chronic pain G89.29 ; GERD (gastroesophageal reflux disease) K21.9 ; Insomnia G47.00 ; Overactive bladder N32.81 ; Mixed hyperlipidemia E78.2 ; Diarrhea of infectious origin A09 and Environmental allergies Z91.09 [place] [address] [address] Apr, [place] [address] [address] March, Hypothyroidism, unspecified E03.9 and Mixed hyperlipidemia E78.2 [place] [address] [address] March, Diabetes mellitus E11.9 ; HT N (hypertension) I10 ; Hypothyroid E03.9 ; Depression F32.9 ; Overactive bladder N32.81 ; Other chronic pain G89.29 ; Lumbago with sciatica, unspecified side M54.40 ; Environmental allergies Z91.09 and Gastroesophageal reflux disease, esophagitis presence not specified K21.9 [place] [id number] [address] [place] [address] March, [place] [address] [address] Jan, HTN (hypertension) I10 ; Hyp othyroid E03.9 ; Neuropathy G62.9 ; Diabetes mellitus E11.9 ; Chronic pain G89.29 ; GERD (gastroesophageal reflux disease) K21.9 ; Overactive bladder N32.81 and Depression F32.9 [place] [address] [address] 12 Dec, 2015 Ear pain, left H92.02 ; HTN (hypertension) I10 ; Hypothyroid E03.9 ; Neuropathy G62.9 ; Diabetes mellitus E11.9 ; Depression F32.9 ; GERD (gastroesophageal reflux disease) K21.9 ; Insomnia G47.00 and Overactive bladder N32.81 [place] [address] [address] Nov, Overactive bladder N32.81 an d Chronic pain G89.29 [place] [address] [address] Nov, Kidney failure N19 [place] [address] [address] Nov, [place] [address] [address] Nov, [place] [address] [address] Nov, Diabetes mellitus E11.9 ; De pression F32.9 ; Chronic pain G89.29 ; GERD (gastroesophageal reflux disease) K21.9 ; Insomnia G47.00 ; HTN (hypertension) I10 ; Hypothyroid E03.9 ; COPD (chronic obstructive pulmonary disease) J44.9 ; Bladder incontinence R32 and Incontinence R32 [place] [address] [address] Sep, Type 2 diabetes mellitus wit h foot ulcer E11.621 and Chromosomal abnormality, 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 [place] [address] [address] Sep, [place] [address] [address] Aug, [place] [address] [address] Aug, [place] [address] [address] Aug, HTN (hypertension) I10 ; Enc ounter for immunization Z23 ; Hypothyroid E03.9 ; Neuropathy G62.9 ; Diabetes mellitus E11.9 ; Depression F32.9 ; Chronic pain G89.29 ; GERD (gastroesophageal reflux disease) K21.9 ; Insomnia G47.00 and COPD (chronic obstructive pulmonary disease) J44.[address] [address] Jun, [address] [address] Jun, [address] [address] May, Essential hypertension, ivis gn 401.1 ; Unspecified hypothyroidism 244.9 ; Insomnia, unspecified 780.52 ; Shortness of breath 786.05 ; Depression 311 ; COPD (chronic obstructive pulmonary disease) 496 ; GERD (gastroesophageal reflux disease) 530.81 and Diabetes 1.5, 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 [address] May, [address] [address] May, [address] [address] May, Shortness of breath 786.05 ; Essential hypertension, benign 401.1 ; Diabetes mellitus 250.00 ; Hyperlipidemia 272.4 ; Hypothyroid 244.9 ; Insomnia 780.52 and Cough 786.[address] [address] Apr, [facility] [address] [facility] [id number] [address] [place] [address] March, Shortness of breath 786.05 ; Nausea with vomiting 787.01 ; Essential hypertension, benign 401.1 ; Diabetes mellitus 250.00 ; Hyperlipidemia 272.4 and Hypothyroid 244.9 [facility] [address] [id number] [address] [place] [address] Feb, [facility] [address] [id number] [address] [place] [address] Feb, [facility] [address] [facility] [id number] [address] [place] [address] Jan, [facility] [address] [id number] [address] [place] [address] Jan, [facility] [address] [facility] [id number] [address] [place] [address] Jan, [facility] [address] [facility] [id number] [address] [place] [address] Jan, [facility] [address] [facility] [id number] [address] [place] [address] Jan, [facility] [address] [facility] [id number] [address] [place] [address] Jan, [facility] [address] [facility] [id number] [address] [place] [address] Jan, [facility] [address] [id number] [address] [place] [address] Jan, [facility] [address] [facility] [id number] [address] [place] [address] Jan, [facility] [address] [facility] [id number] [address] [place] [address] Jan, [facility] [address] [facility] [id number] [address] [place] [address] Dec, [facility] [address] [id number] [address] [place] [address], [place] [address] Dec, 2014 [facility] [address] [id number] [address] [place] [address], [place] [address] Dec, 2014 [facility] [address] [id number] [address] [place] [address], [place] [address] Dec, 2014 [facility] [address] [id number] [address] [place] [address], [place] [address] Dec, 2014 [facility] [address] [id number] [address] [place] [address], [place] [address] Dec, 2014 [facility] [address] [id number] [address] [place] [address], [place] [address] Dec, 2014 [facility] [address] [id number] [address] [place] [address], [place] [address] Dec, 2014 [facility] [address] [id number] [address] [place] [address], [place] [address] Dec, 2014 [facility] [address] [id number] [address] [place] [address], [place] [address] Dec, 2014 [facility] [address] [id number] [address] [place] [address], [place] [address] Oct, [facility] [address] [id number] [address] [place] [address], [place] [address] Oct, [facility] [address] [id number] [address] [place] [address] Oct, [facility] [address] [id number] [address] [place] [address], [place] [address] Oct, [facility] [address] [id number] [address] [place] [address], [place] [address] Oct, [facility] [address] [id number] [address] [place] [address], [place] [address] Oct, [facility] [address] [id number] [address] [place] [address], [place] [address] 05 Oct, 2014 [facility] [address] [id number] [address] [place] [address], [place] [address] 05 Oct, 2014 [facility] [address] [id number] [address] [place] [address], [place] [address] Oct, [facility] [address] [id number] [address] [place] [address], [place] [address] Oct, [facility] [address] [id number] [address] [place] [address], [place] [address] Oct, [facility] [address] [id number] [address] [place] [address], [place] [address] Oct, [facility] [address] [id number] [address] [place] [address], [place] [address] Oct, [facility] [address] [id number] [address] [place] [address], [place] [address] Oct, [facility] [address] [id number] [address] [place] [address], [place] [address] Sep, [facility] [address] [id number] [address] [place] [address], [place] [address] Sep, [facility] [address] [id number] [address] [place] [address], [place] [address] Sep, [facility] [address] [id number] [address] [place] [address], [place] [address] Sep, [facility] [address] [id number] [address] [place] [address], [place] [address] Sep, [facility] [address] [id number] [address] [place] [address], [place] [address] Sep, [facility] [address] [id number] [address] [place] [address], [place] [address] Sep, [facility] [address] [id number] [address] [place] [address], [place] [address] Sep, [facility] [address] [id number] [address] [place] [address], [place] [address] Sep, [facility] [address] [id number] [address] [place] [address], [place] [address] Aug, [facility] [address] [id number] [address] [place] [address], [place] [address] Aug, [facility] [address] [id number] [address] [place] [address], [place] [address] Aug, [facility] [address] [id number] [address] [place] [address], [place] [address] 17 Aug, 2014 [facility] [address] [id number] [address] [place] [address], [place] [address] 16 Aug, 2014 [facility] [address] [id number] [address] [place] [address], [place] [address] Aug, [facility] [address] [id number] [address] [place] [address], [place] [address] Aug, [facility] [address] [id number] [address] [place] [address], [place] [address] Aug, [facility] [address] [id number] [address] [place] [address], [place] [address] Aug, [facility] [address] [id number] [address] [place] [address], [place] [address] 29 Jul, 2014 [facility] [address] [id number] [address] [place] [address], [place] [address] 29 Jul, 2013 [facility] [address] [id number] [address] [place] [address], [place] [address] 25 Jul, 2014 [facility] [address] [id number] [address] [place] [address], [place] [address] Jul, 2013 [facility] [address] [id number] [address] [place] [address], [place] [address] 25 Jul, 2013 [facility] [address] [id number] [address] [place] [address], [place] [address] Jul, [facility] [address] [id number] [facility] [place] [address] Jul, [facility] [address] [id number] [address] [place] [address], [place] [address] Jul, [facility] [address] [id number] [address] [place] [address], [place] [address] Jul, [facility] [address] [id number] [address] [place] [address], [place] [address] Jul, [facility] [address] [id number] [address] [place] [address], [place] [address] Jun, [facility] [address] [id number] [address] [place] [address], [place] [address] Jun, [facility] [address] [id number] [address] [place] [address], [place] [address] Jun, [facility] [address] [id number] [address] [place] [address], [place] [address] Jun, [facility] [address] [id number] [address] [place] [address], [place] [address] Jun, [facility] [address] [id number] [address] [place] [address], [place] [address] Jun, [facility] [address] [id number] [address] [place] [address], [place] [address] Jun, [facility] [address] [id number] [address] [place] [address], [place] [address] Jun, [facility] [address] [id number] [address] [place] [address], [place] [address] Jun, [facility] [address] [id number] [address] [place] [address], [place] [address] Jun, [facility] [address] [id number] [address] [place] [address], [place] [address] Jun, [facility] [address] [id number] [address] [place] [address], [place] [address] Jun, [facility] [address] [id number] [address] [place] [address], [place] [address] May, [facility] [address] [id number] [address] [place] [address], [place] [address] May, [facility] [address] [id number] [address] [place] [address], [place] [address] May, [facility] [address] [id number] [address] [place] [address], [place] [address] May, [facility] [address] [id number] [address] [place] [address], [place] [address] May, [facility] [address] [id number] [address] [place] [address], [place] [address] May, [facility] [address] [id number] [address] [place] [address], [place] [address] March, [facility] [address] [id number] [address] [place] [address], [place] [address] March, [facility] [address] [id number] [address] [place] [address], [place] [address] March, [facility] [address] [id number] [address] [place] [address], [place] [address] March, [facility] [address] [id number] [address] [place] [address], [place] [address] March, [facility] [address] [id number] [address] [place] [address], [place] [address] March, [facility] [address] [id number] [address] [place] [address], [place] [address] Feb, [facility] [address] [id number] [address] [place] [address], [place] [address] Feb, [facility] [address] [id number] [address] [place] [address], [place] [address] Feb, [facility] [address] [id number] [address] [place] [address], [place] [address] Feb, [facility] [address] [id number] [address] [place] [address], [place] [address] Jan, [facility] [address] [id number] [address] [place] [address], [place] [address] Jan, [facility] [address] [id number] [address] [place] [address], [place] [address] Jan, [facility] [address] [id number] [address] [place] [address], [place] [address] Jan, [facility] [address] [id number] [address] [place] [address], [place] [address] Jan, [facility] [address] [id number] [address] [place] [address], [place] [address] Jan, [facility] [address] [id number] [address] [place] [address], [place] [address] Jan, [facility] [address] [id number] [address] [place] [address], [place] [address] Jan, [facility] [address] [id number] [address] [place] [address], [place] [address] Jan, [facility] [address] [id number] [address] [place] [address], [place] [address] Jan, [facility] [address] [id number] [address] [place] [address], [place] [address] Jan, [facility] [address] [id number] [address] [place] [address], [place] [address] Jan, [facility] [address] [id number] [address] [place] [address], [place] [address] Dec, [facility] [address] [id number] [address] [place] [address], [place] [address] Dec, [facility] [address] [id number] [address] [place] [address] Dec, [facility] [address] [id number] [address] [place] [address], [place] [address] Dec, [facility] [address] [id number] [address] [place] [address], [place] [address] Dec, [facility] [address] [id number] [address] [place] [address], [place] [address] Dec, [facility] [address] [id number] [address] [place] [address], [place] [address] Nov, [facility] [address] [id number] [address] [place] [address], [place] [address] Nov, [facility] [address] [id number] [address] [place] [address], [place] [address] Oct, [facility] [address] [id number] [address] [place] [address], [place] [address] Oct, [facility] [address] [id number] [address] [place] [address], [place] [address] Oct, [facility] [address] [id number] [address] [place] [address], [place] [address] Oct, [facility] [address] [id number] [address] [place] [address], [place] [address] Oct, [facility] [address] [id number] [address] [place] [address], [place] [address] Oct, [facility] [address] [id number] [address] [place] [address], [place] [address] Sep, [facility] [address] [id number] [address] [place] [address], [place] [address] Sep, [facility] [address] [id number] [address] [place] [address], [place] [address] Sep, [facility] [address] [id number] [address] [place] [address], [place] [address] Sep, [facility] [address] [id number] [address] [place] [address], [place] [address] Aug, [facility] [address] [id number] [address] [place] [address], [place] [address] Aug, [facility] [address] [id number] [address] [place] [address], [place] [address] Aug, [facility] [address] [id number] [address] [place] [address], [place] [address] Jul, [facility] [address] [id number] [address] [place] [address], [place] [address] Jul, [facility] [address] [id number] [address] [place] [address], [place] [address] Jul, [facility] [address] [id number] [address] [place] [address], [place] [address] Jun, [facility] [address] [id number] [address] [place] [address], [place] [address] Jun, [facility] [address] [id number] [address] [place] [address], [place] [address] Jun, [facility] [address] [id number] [address] [place] [address], [place] [address] Apr, [facility] [address] [id number] [address] [place] [address], [place] [address] Apr, [facility] [address] [id number] [address] [place] [address], [place] [address] March, [facility] [address] [id number] [address] [place] [address], [place] [address] March, [facility] [address] [id number] [address] [place] [address], [place] [address] March, [facility] [address] [id number] [address] [place] [address], [place] [address] March, [facility] [address] [id number] [address] [place] [id number] Feb, [facility] [address] [id number] [address] [place] [address], [place] [address] Jan, [facility] [address] [id number] [address] [place] [address], [place] [address] 13 Dec, 2012 [facility] [address] [id number] [address] [place] [address], [place] [address] 08 Dec, 2012 [facility] [address] [id number] [address] [place] [address], [place] [address] 07 Dec, 2012 [facility] [address] [id number] [address] [place] [address], [place] [address] Nov, [facility] [address] [id number] [address] [place] [address], [place] [address] Oct, [facility] [address] [id number] [address] [place] [address], [place] [address] Oct, [facility] [address] [id number] [address] [place] [address], [place] [address] Sep, [facility] [address] [id number] [address] [place] [address], [place] [address] Sep, [facility] [address] [id number] [address] [place] [address], [place] [address] Sep, [facility] [address] [id number] [address] [place] [address], [place] [address] Sep, [facility] [address] [id number] [address] [place] [id number] Sep, [facility] [address] [id number] [address] [place] [address], [place] [address] Sep, [facility] [address] [id number] [address] [place] [address], [place] [address] Sep, [facility] [address] [id number] [address] [place] [address], [place] [address] 16 Aug, 2012 [facility] [address] [id number] [address] [place] [address], [place] [address] 16 Aug, 2012 [facility] [address] [id number] [address] [place] [address], [place] [address] 10 Aug, 2012 [facility] [address] [id number] [address] [place] [address], [place] [address] 10 Aug, 2012 [facility] [address] [id number] [address] [place] [address], [place] [address] 08 Aug, 2012 [facility] [address] [id number] [address] [place] [address], [place] [address] 08 Aug, 2012 [facility] [address] [id number] [address] [place] [address], [place] [address] Aug, [facility] [address] [id number] [address] [place] [address], [place] [address] Aug, [facility] [address] [id number] [address] [place] [address], [place] [address] Jul, [facility] [address] [id number] [address] [place] [address], [place] [address] Jul, [facility] [address] [id number] [address] [place] [address], [place] [address] Jun, [facility] [address] [id number] [address] [place] [address], [place] [address] May, [facility] [address] [id number] [address] [place] [address], [place] [address] Apr, [facility] [address] [id number] [address] [place] [address], [place] [address] Apr, [facility] [address] [id number] [address] [place] [address], [place] [address] Apr, [facility] [address] [id number] [address] [place] [address], [place] [address] March, [facility] [address] [id number] [address] [place] [address], [place] [address] March, [facility] [address] [id number] [facility] [place] [address] March, [facility] [address] [id number] [address] [place] [address], [place] [address] March, [facility] [address] [id number] [address] [place] [address], [place] [address] March, [facility] [address] [id number] [address] [place] [address], [place] [address] March, [facility] [address] [id number] [address] [place] [address], [place] [address] March, [facility] [address] [id number] [address] [place] [address], [place] [address] Jan, [facility] [address] [id number] [address] [place] [address], [place] [address] Jan, [facility] [address] [id number] [address] [place] [address], [place] [address] Jan, [facility] [address] [id number] [address] [place] [address], [place] [address] Jan, [facility] [address] [id number] [address] [place] [address], [place] [address] Jan, [facility] [address] [id number] [address] [place] [address], [place] [address] Dec, [facility] [address] [id number] [address] [place] [address], [place] [address] Dec, [facility] [address] [id number] [address] [place] [address], [place] [address] Nov, [facility] [address] [id number] [address] [place] [address], [place] [address] Nov, [facility] [address] [id number] [address] [place] [address], [place] [address] Nov, [facility] [address] [id number] [address] [place] [address], [place] [address] 05 Nov, 2011 [facility] [address] [id number] [address] [place] [address], [place] [address] 21 Oct, 2011 [facility] [address] [id number] [address] [place] [address], [place] [address] 06 Oct, 2011 [facility] [address] [id number] [address] [place] [address], [place] [address] 14 Sep, 2011 [facility] [address] [id number] [address] [place] [address], [place] [address] 10 Sep, 2011 [facility] [address] [id number] [address] [place] [address], [place] [address] 10 Sep, 2011 [facility] [address] [id number] [address] [place] [address], [place] [address] May, [facility] [address] [id number] [address] [place] [address], [place] [address] 20 Nov, 2010 [facility] [address] [id number] [address] [place] [address], [place] [address] 29 Oct, 2010 [facility] [address] [id number] [address] [place] [address], [place] [address] 14 Oct, 2010 [facility] [address] [id number] [address] [place] [address], [place] [address] 08 Oct, 2010 [facility] [address] [id number] [address] [place] [address], [place] [address] 15 Sep, 2010 [facility] [address] [id number] [address] [place] [address], [place] [address] Sep, [facility] [address] [id number] [address] [place] [address], [place] [address] Aug, [facility] [address] [id number] [address] [place] [address], [place] [address] March, [facility] [address] [id number] [address] [place] [address], [place] [address] Oct, [facility] [address] [id number] [address] [place] [address] Oct, [facility] [address] [id number] [address] [place] [id number] Oct, [facility] [address] [id number] [address] [place] [address] Oct, [facility] [address] [id number] [address] [place] [address] Sep, [facility] [address] [id number] [address] [place] [address] Sep, [facility] [address] [id number] [address] [place] [id number] Sep, [facility] [address] [id number] [address] [place] [address] Aug, [facility] [address] [id number] [address] [place] [id number] Aug, [facility] [address] [id number] [address] [place] [id number] Aug, [facility] [address] [id number] [address] [place] [address] Jan, IMMUNIZATIONS No Known Immunizations SOCIAL HISTORY [...]
--- OUTSIDE RECORDS SUMMARY | 2020-06-13 15:52 | XMS REPORT ---
Author Author Jah Monk Organization [facility] Address [address] [place] [address] Care Team Providers Care Audograph Operator Name Role Phone STEVEN Monk Unavailable PROBLEMS Type Condition ICD9-CM Code AXR98-MU Code Onset Dates Condition S tatus SNOMED Code Problem Neuropathy G62.9 Active 256458485 Problem Chronic pain G89.29 Active 3003365 1 Problem Overactive bladder N32.81 Active 2 71006631 Problem Hypothyroid E03.9 Active 01772556 Problem Gastroesophageal reflux disease with esophagitis K 21.0 Active 708418867 Problem Mixed hyperlipidemia E78.2 Active 467128342 Problem Type 2 diabetes mellitus with hyperglycemia E11.65 Active 30943571 Problem Essential (primary) hypertension I10 Active 18975434 Problem Anxiety disorder, unspecified type F41.9 Active 359078168 Problem prison (current) use of insulin Z79.4 Active 182434834 Problem 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 Active 456503724 Problem Ulcer of foot, limited to breakdown of skin, uns pecified laterality L97.501 Active 95168562 Problem Irritable bowel syndrome with diarrhea K58.0 Active 977114968 Problem Gastroparesis K31.84 Active 383804 006 Problem 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 Active 147369746 Problem Chronic obstructive pulmonary disease, unspecified COPD ty pe J44.9 Active 89326793 Problem Major depressive disorder, recurrent, in full remission F33.42 Active [id number] ALLERGIES No Information ENCOUNTERS Encounter Location Date Diagnosis [facility] [address] [facility] [id number] [address] [place] [phone] May, Type 2 diabetes mellitus wit h hyperglycemia E11.65 ; Irritable bowel syndrome with diarrhea K58.0 and Neuropathy G62.9 [facility] [address] [facility] [id number] [address] [place] [phone] Apr, Chronic pain G89.29 [facility] JEANNIE [place] [address] [id number] [address] Apr, Chronic pain G89.29 [facility] [address] [facility] [id number] [address] [place] [phone] March, Ulcer of foot, limited to br eakdown of skin, unspecified laterality L97.501 [place] [address] [facility] [id number] [address] [place] [phone] March, Chronic pain G89.29 [place] [address] [address] [facility] [id number] [address] [place] [phone] Feb, Chronic pain G89.29 [place] [address] [address] [facility] [id number] [address] [place] [phone] Jan, Type 2 diabetes mellitus wit h hyperglycemia E11.65 ; prison (current) use of insulin Z79.4 and Hyperkalemia E87.5 [place] [address] [address] [facility] [id number] [address] [place] [phone] 10 Jan, 2020 Type 2 diabetes mellitus wit h diabetic autonomic (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 ; Hypothyroid E03.9 ; Dyshydrosis L30.1 and Irritable bowel syndrome with diarrhea K58.0 [place] [address] [address] [facility] [id number] [address] [place] [phone] 05 Jan, 2020 Chronic pain G89.29 [place] [address] [address] [facility] [id number] [address] [place] [phone] Dec, Chronic pain G89.29 [place] [address] [facility] [id number] [address] [place] [phone] Dec, [place] [address] [address] [facility] [id number] [address] [place] [phone] Dec, [place] [address] [address] [facility] [id number] [address] [place] [phone] Nov, Chronic pain G89.29 [facility] [address] [id number] [address] [place] [id number] Oct, Chronic pain G89.29 [facility] [address] [facility] [id number] [address] [place] [phone] Sep, Chronic pain G89.29 [facility] [address] [facility] [id number] [address] [place] [phone] Sep, Type 2 diabetes mellitus wit h diabetic autonomic (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 ; Irritable bowel syndrome with diarrhea K58.0 ; Essential (primary) hypertension I10 and Encounter for immunization Z23 [facility] [address] [id number] [address] [place] [phone] Aug, Chronic pain G89.29 [facility] [address] [facility] [id number] [address] [place] [phone] Aug, [facility] [address] [facility] [id number] [address] [place] [phone] Jul, Chronic pain G89.29 [facility] [address] [id number] [address] [place] [phone] Jun, Other chronic pain G89.29 [facility] [address] [facility] [id number] [address] [place] [phone] Jun, [facility] [address] [id number] [address] [place] [phone] Jun, Chronic pain G89.29 [facility] [address] [id number] [address] [place] [phone] Jun, Neuropathy G62.9 [facility] [address] [facility] [id number] [address] [place] [phone] Jun, [facility] Z00.00 ; Type 2 diabetes mellitus with hyperglycemia E11.65 ; Mixed hyperlipidemia E78.2 ; Hypothyroid E03.9 ; Gastroesophageal reflux disease with esophagitis K21.0 ; Essential (primary) hypertension I10 ; Major depressive disorder, recurrent, in full remission F33.42 ; Chronic obstructive pulmonary disease, unspecified COPD type J44.9 ; Neuropathy G62.9 and Encounter for immunization Z23 [place] [address] [facility] [id number] [address] [place] [phone] Jun, Irritable bowel syndrome wit h diarrhea K58.0 [place] [address] [place] [id number] [address] [place] [phone] May, Chronic pain G89.29 [place] [address] [facility] [id number] [address] [place] [phone] May, Type 2 diabetes mellitus wit h hyperglycemia E11.65 and Neuropathy G62.9 [place] [address] [facility] [id number] [address] [place] [phone] May, Chronic pain G89.29 [place] [address] [place] [id number] [address] [place] [phone] Apr, Poison maryam dermatitis L23.7 [place] [address] [facility] [id number] [address] [place] [phone] Apr, Chronic pain G89.29 [place] [address] [facility] [id number] [address] [place] [phone] March, Type 2 diabetes mellitus wit h hyperglycemia E11.65 [place] [address] [facility] [id number] [address] [place] [phone] March, Chronic pain G89.29 [place] [address] [facility] [id number] [address] [place] [phone] March, [id number] [place] [phone] Feb, [place] [address] [facility] [id number] [address] [place] [phone] Feb, Other chronic pain G89.29 an d Chronic pain G89.29 [place] [address] [facility] [id number] [address] [place] [phone] Jan, Mixed hyperlipidemia E78.2 [facility] [address] [facility] [id number] [address] [place] [id number] 11 Jan, 2019 Chronic pain G89.29 [facility] [address] [facility] [id number] [address] [place] [phone] 08 Jan, 2019 Type 2 diabetes mellitus wit h hyperglycemia E11.65 ; Mixed hyperlipidemia E78.2 ; prison 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 Z79.4 ; Acquired hypothyroidism E03.9 and Essential (primary) hypertension I10 [facility] [address] [facility] [id number] [address] [place] [phone] 11 Dec, 2018 Chronic pain G89.29 [place] [address] [facility] [id number] [address] [place] [phone] 14 Nov, 2018 Chronic pain G89.29 [place] [address] [place] [id number] [address] [place] [phone] Nov, [facility] [address] [facility] [id number] [address] [place] [phone] Oct, Chronic pain G89.29 [facility] [address] [facility] [id number] [address] [place] [phone] Oct, [facility] [address] [place] [id number] [address] [place] [phone] Sep, [facility] [address] [facility] [id number] [address] [place] [phone] Sep, Type 2 diabetes mellitus wit h hyperglycemia E11.65 [facility] [address] [facility] [id number] [address] [place] [phone] 16 Sep, 2018 Chronic pain G89.29 [facility] [address] [facility] [id number] [address] [place] [id number] Sep, [facility] [address] [facility] [id number] [address] [place] [phone] Sep, Type 2 diabetes mellitus wit h hyperglycemia E11.65 ; Irritable bowel syndrome with diarrhea K58.0 ; Gastroparesis K31.84 ; 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 and Dermatitis L30.9 [place] [address] [facility] [id number] [address] [place] [phone] Aug, Chronic pain G89.29 [facility] [address] [facility] [id number] [address] [place] [phone] Jul, Chronic pain G89.29 [place] [address] [facility] [id number] [address] [place] [phone] Jun, Type 2 diabetes mellitus wit h hyperglycemia E11.65 ; Neuropathy G62.9 ; Recurrent major depressive disorder, in partial remission F33.41 ; Chronic pain G89.29 and Hypertriglyceridemia E78.1 [place] [address] [address] [facility] [id number] [address] [place] [phone] Jun, Hypothyroid E03.9 [place] [address] [place] [id number] [address] [place] [phone] Jun, Major depressive disorder, r ecurrent episode, moderate F33.1 and Anxiety disorder, unspecified type F41.9 [place] [address] [facility] [id number] [address] [place] [phone] Jun, [place] [address] [facility] [id number] [address] [place] [phone] Jun, Type 2 diabetes mellitus wit h hyperglycemia E11.65 ; prison 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 Z79.4 ; Recurrent major depressive disorder, in partial remission F33.41 ; Hypothyroid E03.9 ; Candidal dermatitis B37.2 and Weakness generalized R53.1 [place] [address] [address] [facility] [id number] [address] [place] [phone] May, [place] [address] [facility] [id number] [address] [place] [phone] May, [place] [address] [facility] [id number] [address] [place] [phone] May, [place] [address] [facility] [id number] [address] [place] [phone] May, Generalized abdominal pain R 10.84 and Candidal dermatitis B37.2 [place] [address] [facility] [id number] [address] [place] [phone] May, [facility] [address] [facility] [id number] [address] [place] [phone] May, [facility] [address] [place] [id number] [place] [phone] May, Nodular radiologic density R 93.8 ; Weight loss, unintentional R63.4 and Pulmonary emphysema, unspecified emphysema type J43.9 [place] [address] [facility] [id number] [address] [place] [phone] May, Chronic pain G89.29 [place] [address] [place] [id number] [address] [place] [phone] May, Syncope and collapse R55 ; C hronic fatigue R53.[address] lung screening R91.8 [place] [address] [facility] [id number] [address] [place] [phone] May, [place] [address] [place] [id number] [place] [phone] Apr, Chronic fatigue R53.82 ; Abn ormal chest CT R93.8 ; Elevated erythrocyte sedimentation rate R70.0 ; Hypothyroid E03.9 and Recurrent major depressive disorder, in partial remission F33.41 [place] [address] [facility] [id number] [address] [place] [phone] Apr, Hypothyroid E03.9 [place] [address] [facility] [id number] [address] [place] [phone] Apr, Depression F32.9 [place] [address] [facility] [id number] [address] [place] [phone] Apr, [place] [address] [facility] [id number] [address] [place] [phone] March, [place] [address] [facility] [id number] [address] [place] [phone] March, Hypothyroid E03.9 [place] [address] [facility] [id number] [address] [place] [phone] March, Diabetes mellitus E11.9 and Hypothyroid E03.9 [place] [address] [place] [id number] [address] [place] [phone] March, Diabetes mellitus E11.9 [place] [address] [place] [id number] [address] [place] [phone] March, Hypothyroid E03.9 and Elevat ed liver enzymes R74.8 [place] [address] [place] [id number] [address] [place] [phone] March, Type 2 diabetes mellitus wit h hyperglycemia E11.65 ; prison 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 Z79.4 ; Pulmonary emphysema, unspecified emphysema type J43.9 ; Hypothyroid E03.9 ; Neuropathy G62.9 ; Mixed hyperlipidemia E78.2 ; Chronic pain G89.29 ; Gastroesophageal reflux disease with esophagitis K21.0 ; Irritable bowel syndrome with diarrhea K58.0 ; Overactive bladder N32.81 and Recurrent major depressive disorder, in partial remission F33.41 [place] [address] [place] [id number] [address] [place] [phone] Feb, Chronic pain G89.29 [place] [address] [place] [id number] [address] [place] [phone] Feb, Type 2 diabetes mellitus wit h hyperglycemia E11.65 and Skin lesion of scalp L98.9 [place] [address] [facility] [id number] [address] [place] [phone] Feb, [place] [address] [place] [id number] [address] [place] [phone] Jan, Type 2 diabetes mellitus wit h hyperglycemia E11.65 ; 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 ; Essential (primary) hypertension I10 ; Pulmonary emphysema, unspecified emphysema type J43.9 ; Chronic pain G89.29 ; Controlled substance agreement signed Z79.899 ; Hypothyroid E03.9 ; Neuropathy G62.9 ; Gastroesophageal reflux disease with esophagitis K21.0 ; Overactive bladder N32.81 ; Depression F32.9 and Irritable bowel syndrome with diarrhea K58.0 [facility] [address] [id number] [address] [place] [phone] Jan, [place] [address] [id number] [address] [place] [phone] Jan, Controlled substance agreeme nt signed Z79.899 [place] [address] [id number] [address] [place] [phone] Dec, Type 2 diabetes mellitus wit h hyperglycemia E11.65 ; Controlled substance agreement signed Z79.899 ; 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 ; Essential (primary) hypertension I10 ; Hypothyroid E03.9 ; Neuropathy G62.9 ; Depression F32.9 ; Mixed hyperlipidemia E78.2 ; Irritable bowel syndrome with diarrhea K58.0 ; Gastroesophageal reflux disease with esophagitis K21.0 ; Thrombocytosis D47.3 ; Current non-adherence to medical treatment Z91.19 and Overweight (BMI 25.0-29.9) E66.3 [place] [address] [id number] [address] [place] [phone] 02 Dec, 2017 Controlled substance agreeme nt signed Z79.899 [place] [address] [id number] [address] [place] [phone] Nov, Type 2 diabetes mellitus wit h hyperglycemia E11.65 and Current non- adherence to medical treatment Z91.19 [place] [address] [id number] [address] [place] [phone] Nov, [place] [address] [id number] [address] [place] [phone] Nov, Chronic pain G89.29 [place] [address] [id number] [address] [place] [phone] Nov, [place] [address] [id number] [address] [place] [phone] Nov, Hypothyroid E03.9 [facility] [address] [facility] [id number] [address] [place] [phone] Nov, Hypothyroid E03.9 [facility] [address] [facility] [id number] [address] [place] [phone] Nov, Pulmonary emphysema, unspeci fied emphysema type J43.9 and Irritable bowel syndrome with diarrhea K58.0 [facility] [address] [facility] [id number] [address] [place] [phone] Oct, [facility] [address] [facility] [id number] [address] [place] [phone] Oct, [facility] [address] [facility] [id number] [address] [place] [phone] Oct, [facility] [address] [facility] [id number] [address] [place] [phone] Oct, [facility] [address] [facility] [id number] [address] [place] [phone] Oct, Chronic pain G89.29 [facility] [address] [facility] [id number] [address] [place] [phone] Oct, Diabetes mellitus E11.9 ; De pression F32.9 ; Mixed hyperlipidemia E78.2 ; Hypotension, unspecified hypotension type I95.9 ; Pulmonary emphysema, unspecified emphysema type J43.9 and Weight loss, unintentional R63.4 [facility] [address] [facility] [id number] [address] [place] [phone] Oct, Chronic pain G89.29 [facility] [address] [facility] [id number] [address] [place] [phone] Sep, Chronic pain G89.29 [facility] [address] [facility] [id number] [address] [place] [phone] Sep, Hypothyroid E03.9 and Diabet es mellitus E11.9 [facility] [address] [facility] [id number] [address] [place] [phone] Aug, Type 2 diabetes mellitus wit h hyperglycemia E11.65 ; prison 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 Z79.4 ; Essential (primary) hypertension I10 ; Hypothyroid E03.9 ; Neuropathy G62.9 ; Chronic pain G89.29 ; Mixed hy perlipidemia E78.2 and Encounter for immunization Z23 [facility] [address] [facility] [id number] [address] [place] [phone] Aug, Chronic pain G89.29 [facility] [address] [facility] [id number] [address] [place] [phone] Aug, Overactive bladder N32.81 ; Diabetes mellitus E11.9 and Chronic pain G89.29 [facility] [address] [facility] [id number] [address] [place] [phone] Jul, [facility] [address] [facility] [id number] [address] [place] [phone] Jun, [facility] [address] [facility] [id number] [address] [place] [phone] Jun, [facility] [address] [facility] [id number] [address] [place] [phone] Jun, Hypothyroid E03.9 [facility] [address] [facility] [id number] [address] [place] [phone] Jun, Diabetes mellitus E11.9 ; Hy pothyroid E03.9 ; Neuropathy G62.9 ; Chronic pain G89.29 and Neck mass R22.1 [facility] [address] [facility] [id number] [address] [place] [phone] Apr, [facility] [address] [facility] [id number] [address] [place] [phone] Apr, Acute cystitis without hemat uria N30.00 [facility] [address] [facility] [id number] [address] [place] [phone] March, [facility] [id number] [place] [phone] March, [facility] [address] [address] March, Near syncope R55 [facility] [address] [place] [id number] [address] [place] [id number] Feb, [facility] [address] [id number] Feb, Chronic pain G89.29 [facility] [address] [place] [id number] [address] [place] [id number] Feb, [facility] [address] [id number] Feb, [facility] [address] [id number] Jan, Chronic pain G89.29 [facility] [address] [id number] Jan, [facility] [address] [place] [id number] [address] [place] [id number] Jan, [facility] [address] [id number] Jan, Diabetes mellitus E11.9 ; Hy pothyroid E03.9 ; GERD (gastroesophageal reflux disease) K21.9 ; Insomnia G47.00 ; Functional 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 ; Neuropathy G62.9 ; Depression F32.9 ; Chronic pain G89.29 ; Irritable bowel syndrome with diarrhea K58.0 ; Overactive bladder N32.81 ; Mixed hyperlipidemia E78.2 and Bronchitis J40 [facility] [address] [place] [id number] [address] [place] [id number] Dec, [facility] [address] [place] [id number] [address] [place] [id number] Dec, [facility] [address] [place] [id number] [address] [place] [id number] Dec, [facility] [address] [place] [id number] [address] [place] [id number] Dec, [facility] [address] [place] [id number] [address] [place] [id number] Dec, Chronic pain G89.29 [facility] [address] [place] [id number] Dec, [facility] [address] [place] [id number] [address] [place] [phone] Dec, [facility] [address] [address] Dec, Type 2 diabetes mellitus wit h foot ulcer E11.621 [facility] [address] [place] [id number] [address] [place] [address] Dec, Type 2 diabetes mellitus wit h foot ulcer E11.621 [facility] [address] [place] [id number] [address] [place] [phone] 14 Dec, 2016 HTN (hypertension) I10 ; Dep ression F32.9 ; Type 2 diabetes mellitus with foot ulcer E11.621 ; Functional 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 ; Irritable bowel syndrome with diarrhea K58.0 ; Chronic pain G89.29 ; Insomnia G47.00 ; Overactive bladder N32.81 ; Mixed hyperlipidemia E78.2 ; Gastroesophageal reflux disease with esophagitis K21.0 and Acquired hypothyroidism E03.9 [facility] [address] [place] [phone] Nov, [facility] [address] [place] [address] Oct, [facility] [address] [place] [id number] [address] [place] [phone] Oct, [facility] [address] [place] [phone] Oct, [facility] [address] [address] Sep, Functional 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 ; HTN (hypertension) I10 ; Diabetes mellitus E11.9 ; Depression F32.9 ; Overactive bladder N32.81 ; Mixed hyperlipidemia E78.2 ; Gastroesophageal reflux disease without esophagitis K21.9 ; Chronic pain G89.29 ; Insomnia G47.00 and Acquired hypothyroidism E03.[address] [address] Sep, [address] [address] Aug, Encounter for immunization Z [address] [address] 06 Aug, [address] [address] Jul, [address] [address] Jun, Type 2 diabetes mellitus wit hout complications E11.9 ; HTN (hypertension) I10 ; Hypothyroid E03.9 ; Neuropathy G62.9 ; Depression F32.9 ; Chronic pain G89.29 ; GERD (gastroesophageal reflux disease) K21.9 ; Insomnia G47.00 ; Overactive bladder N32.81 ; Mixed hyperlipidemia E78.2 ; Diarrhea of infectious origin A09 and Environmental allergies Z91.[address] [address] Apr, [address] [address] March, Hypothyroidism, unspecified E03.9 and Mixed hyperlipidemia E78.[address] [address] March, Diabetes mellitus E11.9 ; HT N (hypertension) I10 ; Hypothyroid E03.9 ; Depression F32.9 ; Overactive bladder N32.81 ; Other chronic pain G89.29 ; Lumbago with sciatica, unspecified side M54.40 ; Environmental allergies Z91.09 and Gastroesophageal reflux disease, esophagitis presence not specified K21.9 [place] [address] [place] [id number] [place] [phone] 06 Mar, 2016 [place] [address] [place] [id number] [address] [place] [address] Jan, HTN (hypertension) I10 ; Hyp othyroid E03.9 ; Neuropathy G62.9 ; Diabetes mellitus E11.9 ; Chronic pain G89.29 ; GERD (gastroesophageal reflux disease) K21.9 ; Overactive bladder N32.81 and Depression F32.9 [place] [address] [address] 12 Dec, 2015 Ear pain, left H92.02 ; HTN (hypertension) I10 ; Hypothyroid E03.9 ; Neuropathy G62.9 ; Diabetes mellitus E11.9 ; Depression F32.9 ; GERD (gastroesophageal reflux disease) K21.9 ; Insomnia G47.00 and Overactive bladder N32.81 [place] [address] [place] [phone] 14 Nov, 2015 Overactive bladder N32.81 an d Chronic pain G89.29 [place] [address] [place] [id number] [address] [place] [id number] 11 Nov, 2015 Kidney failure N19 [place] [address] [place] [phone] 08 Nov, 2015 [place] [address] [place] [id number] [address] [place] [phone] Nov, [place] [address] [place] [id number] [address] [place] [phone] Nov, Diabetes mellitus E11.9 ; De pression F32.9 ; Chronic pain G89.29 ; GERD (gastroesophageal reflux disease) K21.9 ; Insomnia G47.00 ; HTN (hypertension) I10 ; Hypothyroid E03.9 ; COPD (chronic obstructive pulmonary disease) J44.9 ; Bladder incontinence R32 and Incontinence R32 [place] [address] [address] Sep, Type 2 diabetes mellitus wit h foot ulcer E11.621 and Chromosomal abnormality, 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 [place] [address] [address] Sep, [address] [address] Aug, [address] [address] Aug, [address] [address] Aug, HTN (hypertension) I10 ; Enc ounter for immunization Z23 ; Hypothyroid E03.9 ; Neuropathy G62.9 ; Diabetes mellitus E11.9 ; Depression F32.9 ; Chronic pain G89.29 ; GERD (gastroesophageal reflux disease) K21.9 ; Insomnia G47.00 and COPD (chronic obstructive pulmonary disease) J44.[address] [address] Jun, [address] [address] Jun, [address] [address] May, Essential hypertension, ivis gn 401.1 ; Unspecified hypothyroidism 244.9 ; Insomnia, unspecified 780.52 ; Shortness of breath 786.05 ; Depression 311 ; COPD (chronic obstructive pulmonary disease) 496 ; GERD (gastroesophageal reflux disease) 530.81 and Diabetes 1.5, 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 [address] May, [address] [address] May, [place] [address] [facility] [id number] [address] [place] [phone] May, Shortness of breath 786.05 ; Essential hypertension, benign 401.1 ; Diabetes mellitus 250.00 ; Hyperlipidemia 272.4 ; Hypothyroid 244.9 ; Insomnia 780.52 and Cough 786.2 [facility] [address] [facility] [id number] [address] [place] [phone] Apr, [facility] [address] [facility] [id number] [address] [place] [address] March, Shortness of breath 786.05 ; Nausea with vomiting 787.01 ; Essential hypertension, benign 401.1 ; Diabetes mellitus 250.00 ; Hyperlipidemia 272.4 and Hypothyroid 244.9 [facility] [address] [facility] [id number] [address] [place] [phone] Feb, [facility] [address] [place] [id number] [address] [place] [phone] Feb, [facility] [address] [place] [id number] [address] [place] [phone] Jan, [facility] [address] [facility] [id number] [address] [place] [phone] Jan, [facility] [address] [place] [id number] [address] [place] [phone] Jan, [facility] [address] [facility] [id number] [address] [place] [phone] Jan, [facility] [address] [place] [id number] [address] [place] [phone] Jan, [facility] [address] [facility] [id number] [address] [place] [phone] Jan, [facility] [address] [place] [id number] [address] [place] [phone] Jan, [facility] [address] [facility] [id number] [address] [place] [phone] Jan, [facility] [address] [id number] [address] [place] [address], [place] [address] Jan, 2014 [facility] [address] [id number] [address] [place] [address], [place] [address] Jan, [facility] [address] [id number] [address] [place] [address], [place] [address] Dec, 2014 [facility] [address] [id number] [address] [place] [address], [place] [address] Dec, 2014 [facility] [address] [id number] [address] [place] [address], [place] [address] Dec, 2014 [facility] [address] [id number] [address] [place] [address], [place] [address] Dec, 2014 [facility] [address] [id number] [address] [place] [address], [place] [address] Dec, 2014 [facility] [address] [id number] [address] [place] [address], [place] [address] Dec, 2014 [facility] [address] [id number] [address] [place] [address], [place] [address] Dec, 2014 [facility] [address] [id number] [address] [place] [address], [place] [address] Dec, 2014 [facility] [address] [id number] [address] [place] [address], [place] [address] Dec, 2014 [facility] [address] [id number] [address] [place] [phone] Dec, 2014 [facility] [address] [id number] [address] [place] [address], [place] [address] Oct, [facility] [address] [id number] [address] [place] [address], [place] [address] Oct, [facility] [address] [id number] [address] [place] [phone] Oct, [facility] [address] [id number] [address] [place] [phone] Oct, [facility] [address] [id number] [address] [place] [address], [place] [address] Oct, [facility] [address] [id number] [address] [place] [address], [place] [address] Oct, [facility] [address] [id number] [address] [place] [address], [place] [address] Oct, [facility] [address] [id number] [address] [place] [address], [place] [address] Oct, [facility] [address] [id number] [address] [place] [address], [place] [address] Oct, [facility] [address] [id number] [address] [place] [address], [place] [address] Oct, [facility] [address] [id number] [address] [place] [address], [place] [address] Oct, [facility] [address] [id number] [address] [place] [address], [place] [address] Oct, [facility] [address] [id number] [address] [place] [address], [place] [address] Oct, [facility] [address] [id number] [address] [place] [address], [place] [address] Oct, [facility] [address] [id number] [address] [place] [address], [place] [address] Sep, [facility] [address] [id number] [address] [place] [address], [place] [address] Sep, [facility] [address] [id number] [address] [place] [address], [place] [address] Sep, [facility] [address] [id number] [address] [place] [address], [place] [address] Sep, [facility] [address] [id number] [address] [place] [address], [place] [address] Sep, [facility] [address] [id number] [address] [place] [address], [place] [address] 17 Sep, 2014 [facility] [address] [id number] [address] [place] [address], [place] [address] Sep, [facility] [address] [id number] [address] [place] [address], [place] [address] Sep, [facility] [address] [id number] [address] [place] [address], [place] [address] Sep, [facility] [address] [id number] [address] [place] [address], [place] [address] Aug, [facility] [address] [id number] [address] [place] [address], [place] [address] Aug, [facility] [address] [id number] [address] [place] [address], [place] [address] Aug, [facility] [address] [id number] [address] [place] [address], [place] [address] Aug, [facility] [address] [id number] [address] [place] [address], [place] [address] 16 Aug, 2014 [facility] [address] [id number] [address] [place] [address], [place] [address] Aug, [facility] [address] [id number] [address] [place] [address], [place] [address] Aug, [facility] [address] [id number] [address] [place] [address], [place] [address] Aug, [facility] [address] [id number] [address] [place] [address], [place] [address] Aug, [facility] [address] [id number] [address] [place] [address], [place] [address] 29 Jul, 2014 [facility] [address] [id number] [address] [place] [address], [place] [address] 29 Jul, 2014 [facility] [address] [id number] [address] [place] [address], [place] [address] Jul, [facility] [address] [id number] [facility] [place] [address] Jul, [facility] [address] [id number] [facility] [place] [address] Jul, [facility] [address] [id number] [facility] [place] [address] Jul, [facility] [address] [id number] [address] [place] [address], [place] [address] Jul, [facility] [address] [id number] [facility] [place] [address] Jul, [facility] [address] [id number] [address] [place] [address], [place] [address] Jul, [facility] [address] [id number] [address] [place] [address], [place] [address] Jul, [facility] [address] [id number] [address] [place] [address], [place] [address] Jun, [facility] [address] [id number] [address] [place] [address], [place] [address] Jun, [facility] [address] [id number] [address] [place] [address], [place] [address] Jun, [facility] [address] [id number] [address] [place] [address], [place] [address] Jun, [facility] [address] [id number] [address] [place] [address], [place] [address] Jun, [facility] [address] [id number] [address] [place] [address], [place] [address] Jun, [facility] [address] [id number] [address] [place] [address], [place] [address] Jun, [facility] [address] [id number] [address] [place] [address], [place] [address] Jun, [facility] [address] [id number] [facility] [place] [address] Jun, [facility] [address] [id number] [address] [place] [address], [place] [address] Jun, [facility] [address] [id number] [address] [place] [address], [place] [address] Jun, [facility] [address] [id number] [address] [place] [address], [place] [address] Jun, [facility] [address] [id number] [address] [place] [address], [place] [address] May, [facility] [address] [id number] [address] [place] [address], [place] [address] May, [facility] [address] [id number] [address] [place] [address], [place] [address] May, [facility] [address] [id number] [address] [place] [address], [place] [address] May, [facility] [address] [id number] [address] [place] [address], [place] [address] May, [facility] [address] [id number] [address] [place] [address], [place] [address] May, [facility] [address] [id number] [address] [place] [address], [place] [address] March, [facility] [address] [id number] [address] [place] [address], [place] [address] March, [facility] [address] [id number] [address] [place] [address], [place] [address] March, [facility] [address] [id number] [address] [place] [address], [place] [address] March, [facility] [address] [id number] [address] [place] [address], [place] [address] March, [facility] [address] [id number] [address] [place] [address], [place] [address] March, [facility] [address] [id number] [facility] [place] [address] Feb, [facility] [address] [id number] [facility] [place] [address] Feb, [facility] [address] [id number] [facility] [place] [address] Feb, [facility] [address] [id number] [address] [place] [address], [place] [address] Feb, [facility] [address] [id number] [facility] [place] [address] Jan, [facility] [address] [id number] [address] [place] [address], [place] [address] Jan, [facility] [address] [id number] [address] [place] [address], [place] [address] Jan, [facility] [address] [id number] [address] [place] [address], [place] [address] Jan, [facility] [address] [id number] [address] [place] [address], [place] [address] Jan, [facility] [address] [id number] [address] [place] [address], [place] [address] Jan, [facility] [address] [id number] [address] [place] [address], [place] [address] Jan, [facility] [address] [id number] [address] [place] [address], [place] [address] Jan, [facility] [address] [id number] [address] [place] [address], [place] [address] Jan, [facility] [address] [id number] [address] [place] [address], [place] [address] Jan, [facility] [address] [id number] [address] [place] [address], [place] [address] Jan, [facility] [address] [id number] [address] [place] [address], [place] [address] Jan, [facility] [address] [id number] [address] [place] [address], [place] [address] Dec, [facility] [address] [id number] [address] [place] [address], [place] [address] Dec, [facility] [address] [id number] [address] [place] [address], [place] [address] Dec, [facility] [address] [id number] [address] [place] [address], [place] [address] Dec, [facility] [address] [id number] [address] [place] [address], [place] [address] Dec, [facility] [address] [id number] [address] [place] [address], [place] [address] Dec, [facility] [address] [id number] [address] [place] [address], [place] [address] Nov, [facility] [address] [id number] [address] [place] [address], [place] [address] Nov, [facility] [address] [id number] [address] [place] [address], [place] [address] Oct, [facility] [address] [id number] [address] [place] [address], [place] [address] Oct, [facility] [address] [id number] [address] [place] [address], [place] [address] Oct, [facility] [address] [id number] [address] [place] [address], [place] [address] Oct, [facility] [address] [id number] [address] [place] [address], [place] [address] Oct, [facility] [address] [id number] [address] [place] [address], [place] [address] Oct, [facility] [address] [id number] [address] [place] [address], [place] [address] Sep, [facility] [address] [id number] [address] [place] [address], [place] [address] Sep, [facility] [address] [id number] [address] [place] [address], [place] [address] Sep, [facility] [address] [id number] [address] [place] [address], [place] [address] Sep, [facility] [address] [id number] [address] [place] [address], [place] [address] Aug, [facility] [address] [id number] [address] [place] [address], [place] [address] Aug, [facility] [address] [id number] [address] [place] [address], [place] [address] Aug, [facility] [address] [id number] [address] [place] [address], [place] [address] Jul, [facility] [address] [id number] [address] [place] [address], [place] [address] 14 Jul, 2013 [facility] [address] [id number] [address] [place] [address], [place] [address] Jul, [facility] [address] [id number] [address] [place] [address], [place] [address] Jun, [facility] [address] [id number] [address] [place] [address], [place] [address] Jun, [facility] [address] [id number] [address] [place] [address], [place] [address] Jun, [facility] [address] [id number] [address] [place] [address], [place] [address] Apr, [facility] [address] [id number] [address] [place] [address], [place] [address] Apr, [facility] [address] [id number] [address] [place] [address], [place] [address] March, [facility] [address] [id number] [address] [place] [address], [place] [address] March, [facility] [address] [id number] [address] [place] [address], [place] [address] March, [facility] [address] [id number] [address] [place] [address], [place] [address] March, [facility] [address] [id number] [address] [place] [address], [place] [address] Feb, [facility] [address] [id number] [address] [place] [address], [place] [address] Jan, [facility] [address] [id number] [address] [place] [address], [place] [address] Dec, [facility] [address] [id number] [address] [place] [address], [place] [address] Dec, [facility] [address] [id number] [address] [place] [address], [place] [address] Dec, [facility] [address] [id number] [address] [place] [address], [place] [address] Nov, [facility] [address] [id number] [address] [place] [address], [place] [address] Oct, [facility] [address] [id number] [address] [place] [address], [place] [address] Oct, [facility] [address] [id number] [address] [place] [address], [place] [address] Sep, [facility] [address] [id number] [address] [place] [address], [place] [address] Sep, [facility] [address] [id number] [address] [place] [address], [place] [address] Sep, [facility] [address] [id number] [address] [place] [address], [place] [address] Sep, [facility] [address] [id number] [address] [place] [address], [place] [address] Sep, [facility] [address] [id number] [address] [place] [address], [place] [address] 05 Sep, 2012 [facility] [address] [id number] [address] [place] [address], [place] [address] Sep, [facility] [address] [id number] [address] [place] [address], [place] [address] Aug, [facility] [address] [id number] [address] [place] [address], [place] [address] 16 Aug, 2012 [facility] [address] [id number] [address] [place] [address], [place] [address] Aug, [facility] [address] [id number] [address] [place] [address], [place] [address] Aug, [facility] [address] [id number] [address] [place] [address], [place] [address] Aug, [facility] [address] [id number] [address] [place] [address], [place] [address] Aug, [facility] [address] [id number] [address] [place] [address], [place] [address] Aug, [facility] [address] [id number] [address] [place] [address], [place] [address] Aug, [facility] [address] [id number] [address] [place] [address], [place] [address] Jul, [facility] [address] [id number] [address] [place] [address], [place] [address] Jul, [facility] [address] [id number] [address] [place] [address], [place] [address] Jun, [facility] [address] [id number] [address] [place] [address], [place] [address] May, [facility] [address] [id number] [address] [place] [address], [place] [address] Apr, [facility] [address] [id number] [address] [place] [address], [place] [address] Apr, [facility] [address] [id number] [address] [place] [address], [place] [address] Apr, [facility] [address] [id number] [address] [place] [address], [place] [address] March, [facility] [address] [id number] [address] [place] [address], [place] [address] March, [facility] [address] [id number] [address] [place] [address], [place] [address] March, [facility] [address] [id number] [address] [place] [address], [place] [address] March, [facility] [address] [id number] [address] [place] [address], [place] [address] March, [facility] [address] [id number] [address] [place] [address], [place] [address] March, [facility] [address] [id number] [address] [place] [address], [place] [address] March, [facility] [address] [id number] [address] [place] [address], [place] [address] Jan, [facility] [address] [id number] [address] [place] [address], [place] [address] Jan, [facility] [address] [id number] [address] [place] [address], [place] [address] Jan, [facility] [address] [id number] [address] [place] [address], [place] [address] Jan, [facility] [address] [id number] [address] [place] [address], [place] [address] Jan, [facility] [address] [id number] [address] [place] [address], [place] [address] Dec, [facility] [address] [id number] [address] [place] [address], [place] [address] Dec, [facility] [address] [id number] [address] [place] [address], [place] [address] 18 Nov, 2011 [facility] [address] [id number] [address] [place] [address], [place] [address] 10 Nov, 2011 [facility] [address] [id number] [address] [place] [address], [place] [address] Nov, [facility] [address] [id number] [address] [place] [address], [place] [address] Nov, [facility] [address] [id number] [address] [place] [address], [place] [address] Oct, [facility] [address] [id number] [address] [place] [address], [place] [address] Oct, [facility] [address] [id number] [address] [place] [address], [place] [address] 14 Sep, 2011 [facility] [address] [id number] [address] [place] [address], [place] [address] Sep, [facility] [address] [id number] [address] [place] [address], [place] [address] Sep, [facility] [address] [id number] [address] [place] [address], [place] [address] May, [facility] [address] [id number] [address] [place] [address], [place] [address] Nov, [facility] [address] [id number] [address] [place] [address], [place] [address] 29 Oct, 2010 [facility] [address] [id number] [address] [place] [address], [place] [address] 14 Oct, 2010 [facility] [address] [id number] [address] [place] [address], [place] [address] 08 Oct, 2010 [facility] [address] [id number] [address] [place] [address], [place] [address] 15 Sep, 2010 [facility] [address] [id number] [address] [place] [address], [place] [address] 02 Sep, 2010 [facility] [address] [id number] [address] [place] [address] Aug, [facility] [address] [id number] [address] [place] [address] March, [facility] [address] [id number] [address] [place] [address] Oct, [facility] [address] [id number] [address] [place] [id number] Oct, [facility] [address] [id number] [address] [place] [address] Oct, [facility] [address] [id number] [address] [place] [address] Oct, [facility] [address] [id number] [address] [place] [address] Sep, [facility] [address] [id number] [address] [place] [id number] Sep, [facility] [address] [id number] [address] [place] [id number] Sep, [facility] [address] [id number] [address] [place] [id number] Aug, [facility] [address] [id number] [address] [place] [id number] Aug, [facility] [address] [id number] [address] [place] [id number] Aug, [facility] [address] [id number] [address] [place] [id number] Jan, IMMUNIZATIONS No Known Immunizations SOCIAL HISTORY Never Assessed REASON FOR VISIT PLAN OF CARE VITAL SIGNS MEDICATIONS No Known Medications RESULTS No Results PROCEDURES No Known [...]
--- OUTSIDE RECORDS SUMMARY | 2020-06-13 15:53 | XMS REPORT ---
Author Author Jah Durant Doctor Organization [facility] Address Unknown Phone Unavailable Care Team Providers Care Supply Chain Technician Name Role Phone Migration, Doctor Unavailable Unavailable PROBLEMS Type Condition ICD9-CM Code OIR66-CE Code Onset Dates Condition S tatus SNOMED Code Problem Neuropathy G62.9 Active 856769846 Problem Chronic pain G89.29 Active 0474618 1 Problem Overactive bladder N32.81 Active 2 97261510 Problem Hypothyroid E03.9 Active 93310868 Problem Gastroesophageal reflux disease with esophagitis K 21.0 Active 042049318 Problem Mixed hyperlipidemia E78.2 Active 300532947 Problem Type 2 diabetes mellitus with hyperglycemia E11.65 Active 00073942 Problem Essential (primary) hypertension I10 Active 10557505 Problem Anxiety disorder, unspecified type F41.9 Active 522481681 Problem skilled nursing (current) use of insulin Z79.4 Active 421403949 Problem 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 Active 801227103 Problem Ulcer of foot, limited to breakdown of skin, uns pecified laterality L97.501 Active 17058775 Problem Irritable bowel syndrome with diarrhea K58.0 Active 316436895 Problem Gastroparesis K31.84 Active 827320 006 Problem 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 Active 434750123 Problem Chronic obstructive pulmonary disease, unspecified COPD ty pe J44.9 Active 74760475 Problem Major depressive disorder, recurrent, in full remission F33.42 Active 76016080 ALLERGIES No Information ENCOUNTERS Encounter Location Date Diagnosis [facility] [address] [facility] [id number] [address] [place] [address] Apr, Chronic pain G89.[address] [place] [address] Apr, Chronic pain G89.29 [facility] [address] [facility] [id number] [address] [place] [address] March, Ulcer of foot, limited to br eakdown of skin, unspecified laterality L97.501 [facility] [address] [facility] [id number] [address] [place] [address] March, Chronic pain G89.29 [facility] [address] [facility] [id number] [address] [place] [address] Feb, Chronic pain G89.29 [facility] [address] [place] [id number] [address] [place] [address] 13 Jan, 2020 Type 2 diabetes mellitus wit h hyperglycemia E11.65 ; termite control technician (current) use of insulin Z79.4 and Hyperkalemia E87.5 [place] [address] [address] 10 Jan, 2020 Type 2 diabetes mellitus wit h diabetic autonomic (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 ; Hypothyroid E03.9 ; Dyshydrosis L30.1 and Irritable bowel syndrome with diarrhea K58.0 [place] [address] [place] [id number] [address] [place] [address] 05 Jan, 2020 Chronic pain G89.29 [place] [address] [place] [id number] [address] [place] [address] 10 Dec, 2019 Chronic pain G89.29 [place] [address] [place] [id number] [address] [place] [id number] 07 Dec, 2019 [place] [address] [place] [id number] [address] [place] [address] Dec, [facility] [address] [facility] [id number] [address] [place] [address] Nov, Chronic pain G89.29 [place] [address] [place] [id number] [address] [place] [address] Oct, Chronic pain G89.29 [place] [address] [place] [id number] [address] [place] [address] Sep, Chronic pain G89.29 [place] [address] [place] [id number] [address] [place] [address] Sep, Type 2 diabetes mellitus wit h diabetic autonomic (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 ; Irritable bowel syndrome with diarrhea K58.0 ; Essential (primary) hypertension I10 and Encounter for immunization Z23 [facility] [address] [facility] [id number] [address] [place] [address] Aug, Chronic pain G89.29 [facility] [address] [facility] [id number] [address] [place] [address] Aug, [facility] [address] [facility] [id number] [address] [place] [address] Jul, Chronic pain G89.29 [facility] [address] [facility] [id number] [address] [place] [address] Jun, Other chronic pain G89.29 [facility] [address] [facility] [id number] [address] [place] [address] Jun, [facility] [address] [facility] [id number] [address] [place] [address] Jun, Chronic pain G89.29 [facility] [address] [facility] [id number] [address] [place] [address] Jun, Neuropathy G62.9 [facility] [address] [facility] [facility] [id number] [address] [place] [address] 06 Jun, 2019 Encounter for Medicare annua wellness exam Z00.00 ; Type 2 diabetes mellitus with hyperglycemia E11.65 ; Mixed hyperlipidemia E78.2 ; Hypothyroid E03.9 ; Gastroesophageal reflux disease with esophagitis K21.0 ; Essential (primary) hypertension I10 ; Major depressive disorder, recurrent, in full remission F33.42 ; Chronic obstructive pulmonary disease, unspecified COPD type J44.9 ; Neuropathy G62.9 and Encounter for immunization Z23 [facility] [address] [facility] [id number] [address] [place] [address] 05 Jun, 2019 Irritable bowel syndrome wit h diarrhea K58.0 [facility] [address] [facility] [id number] [address] [place] [address] May, Chronic pain G89.29 [facility] [address] [facility] [id number] [address] [place] [address] May, Type 2 diabetes mellitus wit h hyperglycemia E11.65 and Neuropathy G62.9 [facility] [address] [id number] [address] [place] [address] May, Chronic pain G89.29 [facility] [address] [id number] [address] [place] [address] Apr, Poison maryam dermatitis L23.7 [facility] [address] [facility] [id number] [address] [place] [address] Apr, Chronic pain G89.29 [facility] [address] [facility] [id number] [address] [place] [address] March, Type 2 diabetes mellitus wit h hyperglycemia E11.65 [facility] [address] [facility] [id number] [address] [place] [address] March, Chronic pain G89.29 [facility] [address] [facility] [id number] [address] [place] [address] March, [id number] [place] [address] Feb, [facility] [address] [facility] [id number] [address] [place] [address] Feb, Other chronic pain G89.29 an d Chronic pain G89.29 [facility] [address] [facility] [id number] [address] [place] [address] Jan, Mixed hyperlipidemia E78.2 [facility] [address] [facility] [id number] [address] [place] [address] Jan, Chronic pain G89.29 [facility] [address] [facility] [id number] [address] [place] [address] Jan, Type 2 diabetes mellitus wit h hyperglycemia E11.65 ; Mixed hyperlipidemia E78.2 ; 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 ; Acquired hypothyroidism E03.9 and Essential (primary) hypertension I10 [facility] [address] [facility] [id number] [address] [place] [address] 11 Dec, 2018 Chronic pain G89.29 [facility] [address] [facility] [id number] [address] [place] [address] 14 Nov, 2018 Chronic pain G89.29 [facility] [address] [place] [id number] [address] [place] [address] Nov, [facility] [address] [place] [id number] [address] [place] [address] Oct, Chronic pain G89.29 [facility] [address] [place] [id number] [address] [place] [address] Oct, [facility] [address] [place] [id number] [address] [place] [address] Sep, [facility] [address] [place] [id number] [address] [place] [address] Sep, Type 2 diabetes mellitus wit h hyperglycemia E11.65 [place] [address] [address] Sep, Chronic pain G89.29 [facility] [address] [place] [id number] [address] [place] [address] Sep, [facility] [address] [place] [id number] [address] [place] [address] Sep, Type 2 diabetes mellitus wit h hyperglycemia E11.65 ; Irritable bowel syndrome with diarrhea K58.0 ; Gastroparesis K31.84 ; 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 and Dermatitis L30.9 [facility] [address] [facility] [id number] [address] [place] [address] Aug, Chronic pain G89.29 [facility] [address] [place] [id number] [address] [place] [address] Jul, Chronic pain G89.29 [facility] [address] [facility] [id number] [address] [place] [address] Jun, Type 2 diabetes mellitus wit h hyperglycemia E11.65 ; Neuropathy G62.9 ; Recurrent major depressive disorder, in partial remission F33.41 ; Chronic pain G89.29 and Hypertriglyceridemia E78.1 [facility] [address] [facility] [id number] [address] [place] [address] Jun, Hypothyroid E03.9 [place] [address] [facility] [id number] [address] [place] [address] Jun, Major depressive disorder, r ecurrent episode, moderate F33.1 and Anxiety disorder, unspecified type F41.9 [place] [address] [facility] [id number] [address] [place] [address] Jun, [place] [address] [place] [id number] [place] [address] Jun, Type 2 diabetes mellitus wit h hyperglycemia E11.65 ; 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 ; Recurrent major depressive disorder, in partial remission F33.41 ; Hypothyroid E03.9 ; Candidal dermatitis B37.2 and Weakness generalized R53.1 [place] [address] [facility] [id number] [address] [place] [address] May, [place] [address] [facility] [id number] [address] [place] [address] May, [place] [address] [facility] [id number] [address] [place] [address] May, [place] [address] [facility] [id number] [address] [place] [address] May, Generalized abdominal pain R 10.84 and Candidal dermatitis B37.2 [facility] [address] [facility] [id number] [address] [place] [address] May, [place] [address] [place] [id number] [address] [place] [address] May, [facility] [address] [id number] [address] [place] [address] 13 May, 2018 Nodular radiologic density R 93.8 ; Weight loss, unintentional R63.4 and Pulmonary emphysema, unspecified emphysema type J43.9 [place] [address] [id number] [address] [place] [address] 10 May, 2018 Chronic pain G89.29 [place] [address] [id number] [address] [place] [address] 09 May, 2018 Syncope and collapse R55 ; C hronic fatigue R53.[address] lung screening R91.8 [place] [address] [id number] [address] [place] [address] May, [place] [address] [facility] [id number] [address] [place] [address] Apr, Chronic fatigue R53.82 ; Abn ormal chest CT R93.8 ; Elevated erythrocyte sedimentation rate R70.0 ; Hypothyroid E03.9 and Recurrent major depressive disorder, in partial remission F33.41 [place] [address] [id number] [address] [place] [address] Apr, Hypothyroid E03.9 [place] [address] [id number] [address] [place] [address] Apr, Depression F32.9 [place] [address] [id number] [address] [place] [address] Apr, [place] [address] [id number] [address] [place] [address] March, [place] [address] [facility] [id number] [address] [place] [address] March, Hypothyroid E03.9 [place] [address] [id number] [address] [place] [address] March, Diabetes mellitus E11.9 and Hypothyroid E03.9 [place] [address] [place] [id number] [address] [place] [address] March, Diabetes mellitus E11.9 [place] [address] [place] [id number] [address] [place] [address] March, Hypothyroid E03.9 and Elevat ed liver enzymes R74.8 [place] [address] [place] [id number] [address] [place] [address] March, Type 2 diabetes mellitus wit h hyperglycemia E11.65 ; 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 ; Pulmonary emphysema, unspecified emphysema type J43.9 ; Hypothyroid E03.9 ; Neuropathy G62.9 ; Mixed hyperlipidemia E78.2 ; Chronic pain G89.29 ; Gastroesophageal reflux disease with esophagitis K21.0 ; Irritable bowel syndrome with diarrhea K58.0 ; Overactive bladder N32.81 and Recurrent major depressive disorder, in partial remission F33.41 [place] [address] [address] Feb, Chronic pain G89.29 [place] [address] [place] [id number] [place] [address] Feb, Type 2 diabetes mellitus wit h hyperglycemia E11.65 and Skin lesion of scalp L98.9 [place] [address] [place] [id number] [address] [place] [address] Feb, [place] [address] [place] [id number] [place] [address] Jan, Type 2 diabetes mellitus wit h hyperglycemia E11.65 ; 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 ; Essential (primary) hypertension I10 ; Pulmonary emphysema, unspecified emphysema type J43.9 ; Chronic pain G89.29 ; Controlled substance agreement signed Z79.899 ; Hypothyroid E03.9 ; Neuropathy G62.9 ; Gastroesophageal reflux disease with esophagitis K21.0 ; Overactive bladder N32.81 ; Depression F32.9 and Irritable bowel syndrome with diarrhea K58.0 [place] [address] [place] [id number] [address] [place] [address] Jan, [place] [address] [facility] [id number] [address] [place] [address] Jan, Controlled substance agreeme nt signed Z79.899 [place] [address] [facility] [id number] [address] [place] [address] 08 Dec, 2017 Type 2 diabetes mellitus wit h hyperglycemia E11.65 ; Controlled substance agreement signed Z79.899 ; skilled nursing 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 Z79.4 ; Essential (primary) hypertension I10 ; Hypothyroid E03.9 ; Neuropathy G62.9 ; Depression F32.9 ; Mixed hyperlipidemia E78.2 ; Irritable bowel syndrome with diarrhea K58.0 ; Gastroesophageal reflux disease with esophagitis K21.0 ; Thrombocytosis D47.3 ; Current non-adherence to medical treatment Z91.19 and Overweight (BMI 25.0-29.9) E66.3 [place] [address] [facility] [id number] [address] [place] [address] 02 Dec, 2017 Controlled substance agreeme nt signed Z79.899 [place] [address] [facility] [id number] [address] [place] [address] Nov, Type 2 diabetes mellitus wit h hyperglycemia E11.65 and Current non- adherence to medical treatment Z91.19 [place] [address] [facility] [id number] [address] [place] [address] Nov, [place] [address] [facility] [id number] [address] [place] [phone] Nov, Chronic pain G89.29 [place] [address] [facility] [id number] [address] [place] [address] Nov, [place] [address] [facility] [id number] [address] [place] [address] Nov, Hypothyroid E03.9 [place] [address] [facility] [id number] [address] [place] [address] Nov, Hypothyroid E03.9 [place] [address] [facility] [id number] [address] [place] [address] Nov, Pulmonary emphysema, unspeci fied emphysema type J43.9 and Irritable bowel syndrome with diarrhea K58.0 [place] [address] [address] Oct, [place] [address] [place] [id number] [address] [place] [address] Oct, [place] [address] [address] Oct, [place] [address] [place] [id number] [place] [address] Oct, [place] [address] [address] Oct, Chronic pain G89.29 [place] [address] [address] Oct, Diabetes mellitus E11.9 ; De pression F32.9 ; Mixed hyperlipidemia E78.2 ; Hypotension, unspecified hypotension type I95.9 ; Pulmonary emphysema, unspecified emphysema type J43.9 and Weight loss, unintentional R63.4 [place] [address] [address] Oct, Chronic pain G89.29 [place] [address] [address] Sep, Chronic pain G89.29 [place] [address] [address] Sep, Hypothyroid E03.9 and Diabet es mellitus E11.9 [place] [address] [address] Aug, Type 2 diabetes mellitus wit h hyperglycemia E11.65 ; 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 ; Essential (primary) hypertension I10 ; Hypothyroid E03.9 ; Neuropathy G62.9 ; Chronic pain G89.29 ; Mixed hy perlipidemia E78.2 and Encounter for immunization Z23 [place] [address] [facility] [id number] [address] [place] [address] Aug, Chronic pain G89.29 [facility] [address] [place] [id number] [address] [place] [address] Aug, Overactive bladder N32.81 ; Diabetes mellitus E11.9 and Chronic pain G89.29 [facility] [address] [place] [id number] [address] [place] [address] Jul, [facility] [address] [facility] [id number] [address] [place] [address] Jun, [facility] [address] [place] [id number] [place] [address] Jun, [facility] [address] [place] [id number] [place] [address] Jun, Hypothyroid E03.9 [facility] [address] [place] [id number] [place] [address] Jun, Diabetes mellitus E11.9 ; Hy pothyroid E03.9 ; Neuropathy G62.9 ; Chronic pain G89.29 and Neck mass R22.1 [facility] [address] [place] [id number] [address] [place] [address] Apr, [facility] [address] [place] [id number] [address] [place] [address] Apr, Acute cystitis without hemat uria N30.00 [facility] [address] [place] [id number] [address] [place] [address] March, [facility] [address] [facility] [id number] [address] [place] [address] March, [facility] [address] [place] [id number] [address] [place] [address] March, Near syncope R55 [facility] [address] [place] [id number] [address] [place] [address] Feb, [facility] [address] [facility] [id number] [address] [place] [address] Feb, Chronic pain G89.29 [facility] [address] [facility] [id number] [address] [place] [address] Feb, [facility] [address] [facility] [id number] [address] [place] [address] Feb, [facility] [address] [facility] [id number] [address] [place] [address] Jan, Chronic pain G89.29 [facility] [address] [facility] [id number] [address] [place] [address] Jan, [facility] [address] [place] [id number] [address] [place] [address] Jan, [facility] [address] [place] [id number] [address] [place] [address] Jan, Diabetes mellitus E11.9 ; Hy pothyroid E03.9 ; GERD (gastroesophageal reflux disease) K21.9 ; Insomnia G47.00 ; Functional 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 ; Neuropathy G62.9 ; Depression F32.9 ; Chronic pain G89.29 ; Irritable bowel syndrome with diarrhea K58.0 ; Overactive bladder N32.81 ; Mixed hyperlipidemia E78.2 and Bronchitis J40 [facility] [address] [place] [address] Dec, [facility] [address] [facility] [id number] [address] [place] [address] Dec, [facility] [address] [facility] [id number] [address] [place] [address] Dec, [facility] [address] [place] [id number] [address] [place] [address] Dec, [facility] [address] [facility] [id number] [address] [place] [address] Dec, Chronic pain G89.29 [facility] [address] [place] [id number] [place] [address] Dec, [facility] [address] [facility] [id number] [address] [place] [address] Dec, [facility] [address] [facility] [id number] [address] [place] [address] Dec, Type 2 diabetes mellitus wit h foot ulcer E11.621 [facility] [address] [place] [id number] [address] [place] [address] 17 Dec, 2016 Type 2 diabetes mellitus wit h foot ulcer E11.621 [facility] [address] [place] [id number] [address] [place] [address] 14 Dec, 2016 HTN (hypertension) I10 ; Dep ression F32.9 ; Type 2 diabetes mellitus with foot ulcer E11.621 ; Functional 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 ; Irritable bowel syndrome with diarrhea K58.0 ; Chronic pain G89.29 ; Insomnia G47.00 ; Overactive bladder N32.81 ; Mixed hyperlipidemia E78.2 ; Gastroesophageal reflux disease with esophagitis K21.0 and Acquired hypothyroidism E03.9 [place] [address] [place] [id number] [address] [place] [address] Nov, [facility] [address] [place] [id number] [address] [place] [address] Oct, [place] [address] [place] [address] Oct, [place] [address] [place] [id number] [address] [place] [id number] Oct, [facility] [address] [place] [id number] [place] [phone] Sep, Functional 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 ; HTN (hypertension) I10 ; Diabetes mellitus E11.9 ; Depression F32.9 ; Overactive bladder N32.81 ; Mixed hyperlipidemia E78.2 ; Gastroesophageal reflux disease without esophagitis K21.9 ; Chronic pain G89.29 ; Insomnia G47.00 and Acquired hypothyroidism E03.9 [place] [id number] [place] [id number] [place] [id number] 04 Sep, 2016 [place] [id number] [id number] 11 Aug, 2016 Encounter for immunization Z 23 [facility] [address] [place] [id number] [place] [id number] 06 Aug, 2016 [place] [address] [id number] 09 Jul, 2016 [place] [address] [phone] Jun, Type 2 diabetes mellitus wit hout complications E11.9 ; HTN (hypertension) I10 ; Hypothyroid E03.9 ; Neuropathy G62.9 ; Depression F32.9 ; Chronic pain G89.29 ; GERD (gastroesophageal reflux disease) K21.9 ; Insomnia G47.00 ; Overactive bladder N32.81 ; Mixed hyperlipidemia E78.2 ; Diarrhea of infectious origin A09 and Environmental allergies Z91.09 [place] [address] [id number] Apr, [place] [address] [phone] March, Hypothyroidism, unspecified E03.9 and Mixed hyperlipidemia E78.2 [place] [address] [id number] March, Diabetes mellitus E11.9 ; HT N (hypertension) I10 ; Hypothyroid E03.9 ; Depression F32.9 ; Overactive bladder N32.81 ; Other chronic pain G89.29 ; Lumbago with sciatica, unspecified side M54.40 ; Environmental allergies Z91.09 and Gastroesophageal reflux disease, esophagitis presence not specified K21.9 [place] [id number] [place] [id number] [address] [place] [address] March, [place] [address] [address] Jan, HTN (hypertension) I10 ; Hyp othyroid E03.9 ; Neuropathy G62.9 ; Diabetes mellitus E11.9 ; Chronic pain G89.29 ; GERD (gastroesophageal reflux disease) K21.9 ; Overactive bladder N32.81 and Depression F32.9 [place] [address] [address] 12 Dec, 2015 Ear pain, left H92.02 ; HTN (hypertension) I10 ; Hypothyroid E03.9 ; Neuropathy G62.9 ; Diabetes mellitus E11.9 ; Depression F32.9 ; GERD (gastroesophageal reflux disease) K21.9 ; Insomnia G47.00 and Overactive bladder N32.81 [place] [address] [address] Nov, Overactive bladder N32.81 an d Chronic pain G89.29 [place] [address] [address] Nov, Kidney failure N19 [place] [address] [address] Nov, [place] [address] [address] Nov, [place] [address] [address] Nov, Diabetes mellitus E11.9 ; De pression F32.9 ; Chronic pain G89.29 ; GERD (gastroesophageal reflux disease) K21.9 ; Insomnia G47.00 ; HTN (hypertension) I10 ; Hypothyroid E03.9 ; COPD (chronic obstructive pulmonary disease) J44.9 ; Bladder incontinence R32 and Incontinence R32 [place] [address] [address] Sep, Type 2 diabetes mellitus wit h foot ulcer E11.621 and Chromosomal abnormality, 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 [place] [address] [address] Sep, [place] [address] [address] Aug, [place] [address] [address] Aug, [place] [address] [address] Aug, HTN (hypertension) I10 ; Enc ounter for immunization Z23 ; Hypothyroid E03.9 ; Neuropathy G62.9 ; Diabetes mellitus E11.9 ; Depression F32.9 ; Chronic pain G89.29 ; GERD (gastroesophageal reflux disease) K21.9 ; Insomnia G47.00 and COPD (chronic obstructive pulmonary disease) J44.[address] [address] Jun, [address] [address] Jun, [address] [address] May, Essential hypertension, ivis gn 401.1 ; Unspecified hypothyroidism 244.9 ; Insomnia, unspecified 780.52 ; Shortness of breath 786.05 ; Depression 311 ; COPD (chronic obstructive pulmonary disease) 496 ; GERD (gastroesophageal reflux disease) 530.81 and Diabetes 1.5, 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 [address] May, [address] [address] May, [address] [address] May, Shortness of breath 786.05 ; Essential hypertension, benign 401.1 ; Diabetes mellitus 250.00 ; Hyperlipidemia 272.4 ; Hypothyroid 244.9 ; Insomnia 780.52 and Cough 786.[address] [address] Apr, [facility] [address] [facility] [id number] [address] [place] [address] March, Shortness of breath 786.05 ; Nausea with vomiting 787.01 ; Essential hypertension, benign 401.1 ; Diabetes mellitus 250.00 ; Hyperlipidemia 272.4 and Hypothyroid 244.9 [facility] [address] [id number] [address] [place] [address] Feb, [facility] [address] [id number] [address] [place] [address] Feb, [facility] [address] [facility] [id number] [address] [place] [address] Jan, [facility] [address] [id number] [address] [place] [address] Jan, [facility] [address] [facility] [id number] [address] [place] [address] Jan, [facility] [address] [facility] [id number] [address] [place] [address] Jan, [facility] [address] [facility] [id number] [address] [place] [address] Jan, [facility] [address] [facility] [id number] [address] [place] [address] Jan, [facility] [address] [facility] [id number] [address] [place] [address] Jan, [facility] [address] [id number] [address] [place] [address] Jan, [facility] [address] [facility] [id number] [address] [place] [address] Jan, [facility] [address] [facility] [id number] [address] [place] [address] Jan, [facility] [address] [facility] [id number] [address] [place] [address] Dec, [facility] [address] [id number] [address] [place] [address], [place] [address] Dec, 2014 [facility] [address] [id number] [address] [place] [address], [place] [address] Dec, 2014 [facility] [address] [id number] [address] [place] [address], [place] [address] Dec, 2014 [facility] [address] [id number] [address] [place] [address], [place] [address] Dec, 2014 [facility] [address] [id number] [address] [place] [address], [place] [address] Dec, 2014 [facility] [address] [id number] [address] [place] [address], [place] [address] Dec, 2014 [facility] [address] [id number] [address] [place] [address], [place] [address] Dec, 2014 [facility] [address] [id number] [address] [place] [address], [place] [address] Dec, 2014 [facility] [address] [id number] [address] [place] [address], [place] [address] Dec, 2014 [facility] [address] [id number] [address] [place] [address], [place] [address] Oct, [facility] [address] [id number] [address] [place] [address], [place] [address] Oct, [facility] [address] [id number] [address] [place] [address] Oct, [facility] [address] [id number] [address] [place] [address], [place] [address] Oct, [facility] [address] [id number] [address] [place] [address], [place] [address] Oct, [facility] [address] [id number] [address] [place] [address], [place] [address] Oct, [facility] [address] [id number] [address] [place] [address], [place] [address] 05 Oct, 2014 [facility] [address] [id number] [address] [place] [address], [place] [address] 05 Oct, 2014 [facility] [address] [id number] [address] [place] [address], [place] [address] Oct, [facility] [address] [id number] [address] [place] [address], [place] [address] Oct, [facility] [address] [id number] [address] [place] [address], [place] [address] Oct, [facility] [address] [id number] [address] [place] [address], [place] [address] Oct, [facility] [address] [id number] [address] [place] [address], [place] [address] Oct, [facility] [address] [id number] [address] [place] [address], [place] [address] Oct, [facility] [address] [id number] [address] [place] [address], [place] [address] Sep, [facility] [address] [id number] [address] [place] [address], [place] [address] Sep, [facility] [address] [id number] [address] [place] [address], [place] [address] Sep, [facility] [address] [id number] [address] [place] [address], [place] [address] Sep, [facility] [address] [id number] [address] [place] [address], [place] [address] Sep, [facility] [address] [id number] [address] [place] [address], [place] [address] Sep, [facility] [address] [id number] [address] [place] [address], [place] [address] Sep, [facility] [address] [id number] [address] [place] [address], [place] [address] Sep, [facility] [address] [id number] [address] [place] [address], [place] [address] Sep, [facility] [address] [id number] [address] [place] [address], [place] [address] Aug, [facility] [address] [id number] [address] [place] [address], [place] [address] Aug, [facility] [address] [id number] [address] [place] [address], [place] [address] Aug, [facility] [address] [id number] [address] [place] [address], [place] [address] 17 Aug, 2014 [facility] [address] [id number] [address] [place] [address], [place] [address] 16 Aug, 2014 [facility] [address] [id number] [address] [place] [address], [place] [address] Aug, [facility] [address] [id number] [address] [place] [address], [place] [address] Aug, [facility] [address] [id number] [address] [place] [address], [place] [address] Aug, [facility] [address] [id number] [address] [place] [address], [place] [address] Aug, [facility] [address] [id number] [address] [place] [address], [place] [address] 29 Jul, 2014 [facility] [address] [id number] [address] [place] [address], [place] [address] 29 Jul, 2013 [facility] [address] [id number] [address] [place] [address], [place] [address] 25 Jul, 2014 [facility] [address] [id number] [address] [place] [address], [place] [address] Jul, 2013 [facility] [address] [id number] [address] [place] [address], [place] [address] 25 Jul, 2013 [facility] [address] [id number] [address] [place] [address], [place] [address] Jul, [facility] [address] [id number] [facility] [place] [address] Jul, [facility] [address] [id number] [address] [place] [address], [place] [address] Jul, [facility] [address] [id number] [address] [place] [address], [place] [address] Jul, [facility] [address] [id number] [address] [place] [address], [place] [address] Jul, [facility] [address] [id number] [address] [place] [address], [place] [address] Jun, [facility] [address] [id number] [address] [place] [address], [place] [address] Jun, [facility] [address] [id number] [address] [place] [address], [place] [address] Jun, [facility] [address] [id number] [address] [place] [address], [place] [address] Jun, [facility] [address] [id number] [address] [place] [address], [place] [address] Jun, [facility] [address] [id number] [address] [place] [address], [place] [address] Jun, [facility] [address] [id number] [address] [place] [address], [place] [address] Jun, [facility] [address] [id number] [address] [place] [address], [place] [address] Jun, [facility] [address] [id number] [address] [place] [address], [place] [address] Jun, [facility] [address] [id number] [address] [place] [address], [place] [address] Jun, [facility] [address] [id number] [address] [place] [address], [place] [address] Jun, [facility] [address] [id number] [address] [place] [address], [place] [address] Jun, [facility] [address] [id number] [address] [place] [address], [place] [address] May, [facility] [address] [id number] [address] [place] [address], [place] [address] May, [facility] [address] [id number] [address] [place] [address], [place] [address] May, [facility] [address] [id number] [address] [place] [address], [place] [address] May, [facility] [address] [id number] [address] [place] [address], [place] [address] May, [facility] [address] [id number] [address] [place] [address], [place] [address] May, [facility] [address] [id number] [address] [place] [address], [place] [address] March, [facility] [address] [id number] [address] [place] [address], [place] [address] March, [facility] [address] [id number] [address] [place] [address], [place] [address] March, [facility] [address] [id number] [address] [place] [address], [place] [address] March, [facility] [address] [id number] [address] [place] [address], [place] [address] March, [facility] [address] [id number] [address] [place] [address], [place] [address] March, [facility] [address] [id number] [address] [place] [address], [place] [address] Feb, [facility] [address] [id number] [address] [place] [address], [place] [address] Feb, [facility] [address] [id number] [address] [place] [address], [place] [address] Feb, [facility] [address] [id number] [address] [place] [address], [place] [address] Feb, [facility] [address] [id number] [address] [place] [address], [place] [address] Jan, [facility] [address] [id number] [address] [place] [address], [place] [address] Jan, [facility] [address] [id number] [address] [place] [address], [place] [address] Jan, [facility] [address] [id number] [address] [place] [address], [place] [address] Jan, [facility] [address] [id number] [address] [place] [address], [place] [address] Jan, [facility] [address] [id number] [address] [place] [address], [place] [address] Jan, [facility] [address] [id number] [address] [place] [address], [place] [address] Jan, [facility] [address] [id number] [address] [place] [address], [place] [address] Jan, [facility] [address] [id number] [address] [place] [address], [place] [address] Jan, [facility] [address] [id number] [address] [place] [address], [place] [address] Jan, [facility] [address] [id number] [address] [place] [address], [place] [address] Jan, [facility] [address] [id number] [address] [place] [address], [place] [address] Jan, [facility] [address] [id number] [address] [place] [address], [place] [address] Dec, [facility] [address] [id number] [address] [place] [address], [place] [address] Dec, [facility] [address] [id number] [address] [place] [address] Dec, [facility] [address] [id number] [address] [place] [address], [place] [address] Dec, [facility] [address] [id number] [address] [place] [address], [place] [address] Dec, [facility] [address] [id number] [address] [place] [address], [place] [address] Dec, [facility] [address] [id number] [address] [place] [address], [place] [address] Nov, [facility] [address] [id number] [address] [place] [address], [place] [address] Nov, [facility] [address] [id number] [address] [place] [address], [place] [address] Oct, [facility] [address] [id number] [address] [place] [address], [place] [address] Oct, [facility] [address] [id number] [address] [place] [address], [place] [address] Oct, [facility] [address] [id number] [address] [place] [address], [place] [address] Oct, [facility] [address] [id number] [address] [place] [address], [place] [address] Oct, [facility] [address] [id number] [address] [place] [address], [place] [address] Oct, [facility] [address] [id number] [address] [place] [address], [place] [address] Sep, [facility] [address] [id number] [address] [place] [address], [place] [address] Sep, [facility] [address] [id number] [address] [place] [address], [place] [address] Sep, [facility] [address] [id number] [address] [place] [address], [place] [address] Sep, [facility] [address] [id number] [address] [place] [address], [place] [address] Aug, [facility] [address] [id number] [address] [place] [address], [place] [address] Aug, [facility] [address] [id number] [address] [place] [address], [place] [address] Aug, [facility] [address] [id number] [address] [place] [address], [place] [address] Jul, [facility] [address] [id number] [address] [place] [address], [place] [address] Jul, [facility] [address] [id number] [address] [place] [address], [place] [address] Jul, [facility] [address] [id number] [address] [place] [address], [place] [address] Jun, [facility] [address] [id number] [address] [place] [address], [place] [address] Jun, [facility] [address] [id number] [address] [place] [address], [place] [address] Jun, [facility] [address] [id number] [address] [place] [address], [place] [address] Apr, [facility] [address] [id number] [address] [place] [address], [place] [address] Apr, [facility] [address] [id number] [address] [place] [address], [place] [address] March, [facility] [address] [id number] [address] [place] [address], [place] [address] March, [facility] [address] [id number] [address] [place] [address], [place] [address] March, [facility] [address] [id number] [address] [place] [address], [place] [address] March, [facility] [address] [id number] [address] [place] [id number] Feb, [facility] [address] [id number] [address] [place] [address], [place] [address] Jan, [facility] [address] [id number] [address] [place] [address], [place] [address] 13 Dec, 2012 [facility] [address] [id number] [address] [place] [address], [place] [address] 08 Dec, 2012 [facility] [address] [id number] [address] [place] [address], [place] [address] 07 Dec, 2012 [facility] [address] [id number] [address] [place] [address], [place] [address] Nov, [facility] [address] [id number] [address] [place] [address], [place] [address] Oct, [facility] [address] [id number] [address] [place] [address], [place] [address] Oct, [facility] [address] [id number] [address] [place] [address], [place] [address] Sep, [facility] [address] [id number] [address] [place] [address], [place] [address] Sep, [facility] [address] [id number] [address] [place] [address], [place] [address] Sep, [facility] [address] [id number] [address] [place] [address], [place] [address] Sep, [facility] [address] [id number] [address] [place] [address] Sep, [facility] [address] [id number] [address] [place] [address], [place] [address] Sep, [facility] [address] [id number] [address] [place] [address], [place] [address] Sep, [facility] [address] [id number] [address] [place] [address], [place] [address] 16 Aug, 2012 [facility] [address] [id number] [address] [place] [address], [place] [address] 16 Aug, 2012 [facility] [address] [id number] [address] [place] [address], [place] [address] 10 Aug, 2012 [facility] [address] [id number] [address] [place] [address], [place] [address] 10 Aug, 2012 [facility] [address] [id number] [address] [place] [address], [place] [address] 08 Aug, 2012 [facility] [address] [id number] [address] [place] [address], [place] [address] 08 Aug, 2012 [facility] [address] [id number] [address] [place] [address], [place] [address] Aug, [facility] [address] [id number] [address] [place] [address], [place] [address] Aug, [facility] [address] [id number] [address] [place] [address], [place] [address] Jul, [facility] [address] [id number] [address] [place] [address], [place] [address] Jul, [facility] [address] [id number] [address] [place] [address], [place] [address] Jun, [facility] [address] [id number] [address] [place] [address], [place] [address] May, [facility] [address] [id number] [address] [place] [address], [place] [address] Apr, [facility] [address] [id number] [address] [place] [address], [place] [address] Apr, [facility] [address] [id number] [address] [place] [address] [id number] Apr, [facility] [address] [id number] [address] [place] [address], [place] [address] March, [facility] [address] [id number] [address] [place] [address], [place] [address] March, [facility] [address] [id number] [facility] [place] [address] March, [facility] [address] [id number] [address] [place] [address], [place] [address] March, [facility] [address] [id number] [address] [place] [address], [place] [address] March, [facility] [address] [id number] [address] [place] [address], [place] [address] March, [facility] [address] [id number] [address] [place] [address], [place] [address] March, [facility] [address] [id number] [address] [place] [address], [place] [address] Jan, [facility] [address] [id number] [address] [place] [address], [place] [address] Jan, [facility] [address] [id number] [address] [place] [address], [place] [address] Jan, [facility] [address] [id number] [address] [place] [address], [place] [address] Jan, [facility] [address] [id number] [address] [place] [address], [place] [address] Jan, [facility] [address] [id number] [address] [place] [address], [place] [address] Dec, [facility] [address] [id number] [address] [place] [address], [place] [address] Dec, [facility] [address] [id number] [address] [place] [address], [place] [address] Nov, [facility] [address] [id number] [address] [place] [address], [place] [address] Nov, [facility] [address] [id number] [address] [place] [address], [place] [address] Nov, [facility] [address] [id number] [address] [place] [address], [place] [address] 05 Nov, 2011 [facility] [address] [id number] [address] [place] [address], [place] [address] 21 Oct, 2011 [facility] [address] [id number] [address] [place] [address], [place] [address] 06 Oct, 2011 [facility] [address] [id number] [address] [place] [address], [place] [address] 14 Sep, 2011 [facility] [address] [id number] [address] [place] [address], [place] [address] 10 Sep, 2011 [facility] [address] [id number] [address] [place] [address], [place] [address] 10 Sep, 2011 [facility] [address] [id number] [address] [place] [address], [place] [address] May, [facility] [address] [id number] [address] [place] [address], [place] [address] 20 Nov, 2010 [facility] [address] [id number] [address] [place] [address], [place] [address] 29 Oct, 2010 [facility] [address] [id number] [address] [place] [address], [place] [address] 14 Oct, 2010 [facility] [address] [id number] [address] [place] [address], [place] [address] 08 Oct, 2010 [facility] [address] [id number] [address] [place] [address], [place] [address] 15 Sep, 2010 [facility] [address] [id number] [address] [place] [address], [place] [address] Sep, [facility] [address] [id number] [address] [place] [address], [place] [address] Aug, [facility] [address] [id number] [address] [place] [address], [place] [address] March, [facility] [address] [id number] [address] [place] [address], [place] [address] Oct, [facility] [address] [id number] [address] [place] [address] Oct, [facility] [address] [id number] [address] [place] [id number] Oct, [facility] [address] [id number] [address] [place] [address] Oct, [facility] [address] [id number] [address] [place] [address] Sep, [facility] [address] [id number] [address] [place] [address] Sep, [facility] [address] [id number] [address] [place] [address] Sep, [facility] [address] [id number] [address] [place] [address] Aug, [facility] [address] [id number] [address] [place] [address] Aug, [facility] [address] [id number] [address] [place] [address] Aug, [facility] [address] [id number] [address] [place] [id number] Jan, IMMUNIZATIONS No Known Immunizations SOCIAL HISTORY [...]
--- OUTSIDE RECORDS SUMMARY | 2020-06-13 15:53 | XMS REPORT ---
Author Author Jah Durant Doctor Organization [facility] Address Unknown Phone Unavailable Care Team Providers Care Rent And Housing Investigator Name Role Phone Migration, Doctor Unavailable Unavailable PROBLEMS Type Condition ICD9-CM Code KIN05-QL Code Onset Dates Condition S tatus SNOMED Code Problem Neuropathy G62.9 Active 215424752 Problem Chronic pain G89.29 Active 2425306 1 Problem Overactive bladder N32.81 Active 2 85376131 Problem Hypothyroid E03.9 Active 52189564 Problem Gastroesophageal reflux disease with esophagitis K 21.0 Active 416499881 Problem Mixed hyperlipidemia E78.2 Active 142921186 Problem Type 2 diabetes mellitus with hyperglycemia E11.65 Active 30953317 Problem Essential (primary) hypertension I10 Active 69606714 Problem Anxiety disorder, unspecified type F41.9 Active 286661976 Problem correction (current) use of insulin Z79.4 Active 143666372 Problem 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 Active 182844232 Problem Ulcer of foot, limited to breakdown of skin, uns pecified laterality L97.501 Active 96242384 Problem Irritable bowel syndrome with diarrhea K58.0 Active 820604222 Problem Gastroparesis K31.84 Active 129754 006 Problem 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 Active 165342007 Problem Chronic obstructive pulmonary disease, unspecified COPD ty pe J44.9 Active 66804126 Problem Major depressive disorder, recurrent, in full remission F33.42 Active 82472928 ALLERGIES No Information ENCOUNTERS Encounter Location Date Diagnosis [facility] [address] [facility] [id number] [place] [address] Apr, Chronic pain G89.[address] [place] [address] Apr, Chronic pain G89.29 [facility] [facility] [id number] [place] [address] March, Ulcer of foot, limited to br eakdown of skin, unspecified laterality L97.501 [facility] [address] [facility] [id number] [place] [address] March, Chronic pain G89.29 [facility] [address] [facility] [id number] [place] [address] Feb, Chronic pain G89.29 [facility] [address] [place] [id number] [place] [address] 13 Jan, 2020 Type 2 diabetes mellitus wit h hyperglycemia E11.65 ; refiner operator (current) use of insulin Z79.4 and Hyperkalemia E87.5 [place] [address] [address] 10 Jan, 2020 Type 2 diabetes mellitus wit h diabetic autonomic (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 ; Hypothyroid E03.9 ; Dyshydrosis L30.1 and Irritable bowel syndrome with diarrhea K58.0 [place] [place] [address] [place] [id number] [place] [address] 05 Jan, 2020 Chronic pain G89.29 [place] [place] [address] [place] [id number] [place] [address] 10 Dec, 2019 Chronic pain G89.29 [place] [place] [address] [place] [id number] [place] [id number] 07 Dec, 2019 [place] [place] [address] [place] [id number] [place] [address] Dec, [facility] [address] [facility] [id number] [place] [address] Nov, Chronic pain G89.29 [place] [place] [address] [place] [id number] [place] [address] Oct, Chronic pain G89.29 [place] [place] [address] [place] [id number] [place] [address] Sep, Chronic pain G89.29 [place] [place] [address] [place] [id number] [place] [address] Sep, Type 2 diabetes mellitus wit h diabetic autonomic (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 ; Irritable bowel syndrome with diarrhea K58.0 ; Essential (primary) hypertension I10 and Encounter for immunization Z23 [facility] [facility] [id number] [place] [address] Aug, Chronic pain G89.29 [facility] [address] [facility] [id number] [place] [address] Aug, [facility] [address] [facility] [id number] [place] [address] Jul, Chronic pain G89.29 [facility] [address] [facility] [id number] [place] [address] Jun, Other chronic pain G89.29 [facility] [address] [facility] [id number] [place] [address] Jun, [facility] [address] [facility] [id number] [place] [address] Jun, Chronic pain G89.29 [facility] [address] [facility] [id number] [place] [address] Jun, Neuropathy G62.9 [facility] [address] [facility] [id number] [place] [address] 06 Jun, 2019 Encounter for Medicare annua wellness exam Z00.00 ; Type 2 diabetes mellitus with hyperglycemia E11.65 ; Mixed hyperlipidemia E78.2 ; Hypothyroid E03.9 ; Gastroesophageal reflux disease with esophagitis K21.0 ; Essential (primary) hypertension I10 ; Major depressive disorder, recurrent, in full remission F33.42 ; Chronic obstructive pulmonary disease, unspecified COPD type J44.9 ; Neuropathy G62.9 and Encounter for immunization Z23 [facility] [address] [facility] [id number] [place] [address] 05 Jun, 2019 Irritable bowel syndrome wit h diarrhea K58.0 [facility] [address] [facility] [id number] [place] [address] May, Chronic pain G89.29 [facility] [address] [facility] [id number] [place] [address] May, Type 2 diabetes mellitus wit h hyperglycemia E11.65 and Neuropathy G62.9 [facility] [address] [id number] [address] [place] [address] May, Chronic pain G89.29 [facility] [address] [id number] [address] [place] [address] Apr, Poison maryam dermatitis L23.7 [facility] [address] [facility] [id number] [place] [address] Apr, Chronic pain G89.29 [facility] [address] [facility] [id number] [place] [address] March, Type 2 diabetes mellitus wit h hyperglycemia E11.65 [facility] [address] [facility] [id number] [place] [address] March, Chronic pain G89.29 [facility] [address] [facility] [id number] [place] [address] March, [id number] [place] [address] Feb, [facility] [address] [facility] [id number] [place] [address] Feb, Other chronic pain G89.29 an d Chronic pain G89.29 [facility] [address] [facility] [id number] [place] [address] Jan, Mixed hyperlipidemia E78.2 [facility] [address] [facility] [id number] [place] [address] Jan, Chronic pain G89.29 [facility] [address] [facility] [id number] [place] [address] Jan, Type 2 diabetes mellitus wit h hyperglycemia E11.65 ; Mixed hyperlipidemia E78.2 ; 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 ; Acquired hypothyroidism E03.9 and Essential (primary) hypertension I10 [facility] [address] [facility] [id number] [place] [address] 11 Dec, 2018 Chronic pain G89.29 [facility] [address] [facility] [id number] [place] [address] 14 Nov, 2018 Chronic pain G89.29 [facility] [address] [place] [id number] [place] [address] Nov, [facility] [address] [place] [id number] [place] [address] Oct, Chronic pain G89.29 [facility] [address] [place] [id number] [place] [address] Oct, [facility] [address] [place] [id number] [place] [address] Sep, [facility] [address] [place] [id number] [place] [address] Sep, Type 2 diabetes mellitus wit h hyperglycemia E11.65 [place] [address] [address] Sep, Chronic pain G89.29 [facility] [address] [place] [id number] [address] [place] [address] Sep, [facility] [address] [place] [id number] [place] [address] Sep, Type 2 diabetes mellitus wit h hyperglycemia E11.65 ; Irritable bowel syndrome with diarrhea K58.0 ; Gastroparesis K31.84 ; 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 and Dermatitis L30.9 [facility] [address] [facility] [id number] [place] [address] Aug, Chronic pain G89.29 [facility] [address] [place] [id number] [place] [address] Jul, Chronic pain G89.29 [facility] [address] [facility] [id number] [place] [address] Jun, Type 2 diabetes mellitus wit h hyperglycemia E11.65 ; Neuropathy G62.9 ; Recurrent major depressive disorder, in partial remission F33.41 ; Chronic pain G89.29 and Hypertriglyceridemia E78.1 [facility] [address] [facility] [id number] [place] [address] Jun, Hypothyroid E03.9 [place] [address] [facility] [id number] [place] [address] Jun, Major depressive disorder, r ecurrent episode, moderate F33.1 and Anxiety disorder, unspecified type F41.9 [place] [address] [facility] [id number] [place] [address] Jun, [place] [address] [place] [id number] [place] [address] Jun, Type 2 diabetes mellitus wit h hyperglycemia E11.65 ; 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 ; Recurrent major depressive disorder, in partial remission F33.41 ; Hypothyroid E03.9 ; Candidal dermatitis B37.2 and Weakness generalized R53.1 [place] [address] [facility] [id number] [place] [address] May, [facility] [address] [facility] [id number] [place] [address] May, [place] [address] [facility] [id number] [place] [address] May, [facility] [address] [facility] [id number] [place] [address] May, Generalized abdominal pain R 10.84 and Candidal dermatitis B37.2 [facility] [address] [facility] [id number] [place] [address] May, [place] [address] [place] [id number] [address] [place] [address] May, [facility] [address] [id number] [address] [place] [address] 13 May, 2018 Nodular radiologic density R 93.8 ; Weight loss, unintentional R63.4 and Pulmonary emphysema, unspecified emphysema type J43.9 [place] [id number] [id number] [address] [place] [address] 10 May, 2018 Chronic pain G89.29 [place] [address] [id number] [address] [place] [address] 09 May, 2018 Syncope and collapse R55 ; C hronic fatigue R53.[address] lung screening R91.8 [place] [address] [id number] [address] [place] [address] May, [place] [address] [facility] [id number] [place] [address] Apr, Chronic fatigue R53.82 ; Abn ormal chest CT R93.8 ; Elevated erythrocyte sedimentation rate R70.0 ; Hypothyroid E03.9 and Recurrent major depressive disorder, in partial remission F33.41 [place] [address] [id number] [address] [place] [address] Apr, Hypothyroid E03.9 [place] [address] [id number] [address] [place] [address] Apr, Depression F32.9 [place] [address] [id number] [address] [place] [address] Apr, [place] [address] [id number] [address] [place] [address] March, [place] [address] [facility] [id number] [place] [address] March, Hypothyroid E03.9 [place] [address] [id number] [address] [place] [address] March, Diabetes mellitus E11.9 and Hypothyroid E03.9 [place] [address] [place] [id number] [place] [address] March, Diabetes mellitus E11.9 [place] [id number] [place] [id number] [place] [address] March, Hypothyroid E03.9 and Elevat ed liver enzymes R74.8 [place] [address] [place] [id number] [place] [address] March, Type 2 diabetes mellitus wit h hyperglycemia E11.65 ; 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 ; Pulmonary emphysema, unspecified emphysema type J43.9 ; Hypothyroid E03.9 ; Neuropathy G62.9 ; Mixed hyperlipidemia E78.2 ; Chronic pain G89.29 ; Gastroesophageal reflux disease with esophagitis K21.0 ; Irritable bowel syndrome with diarrhea K58.0 ; Overactive bladder N32.81 and Recurrent major depressive disorder, in partial remission F33.41 [place] [address] [address] Feb, Chronic pain G89.29 [place] [address] [place] [id number] [place] [address] Feb, Type 2 diabetes mellitus wit h hyperglycemia E11.65 and Skin lesion of scalp L98.9 [place] [address] [place] [id number] [place] [address] Feb, [place] [address] [place] [id number] [place] [address] Jan, Type 2 diabetes mellitus wit h hyperglycemia E11.65 ; 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 ; Essential (primary) hypertension I10 ; Pulmonary emphysema, unspecified emphysema type J43.9 ; Chronic pain G89.29 ; Controlled substance agreement signed Z79.899 ; Hypothyroid E03.9 ; Neuropathy G62.9 ; Gastroesophageal reflux disease with esophagitis K21.0 ; Overactive bladder N32.81 ; Depression F32.9 and Irritable bowel syndrome with diarrhea K58.0 [place] [address] [place] [id number] [place] [address] Jan, [place] [address] [facility] [id number] [place] [address] Jan, Controlled substance agreeme nt signed Z79.899 [place] [address] [facility] [id number] [place] [address] 08 Dec, 2017 Type 2 diabetes mellitus wit h hyperglycemia E11.65 ; Controlled substance agreement signed Z79.899 ; correction 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 Z79.4 ; Essential (primary) hypertension I10 ; Hypothyroid E03.9 ; Neuropathy G62.9 ; Depression F32.9 ; Mixed hyperlipidemia E78.2 ; Irritable bowel syndrome with diarrhea K58.0 ; Gastroesophageal reflux disease with esophagitis K21.0 ; Thrombocytosis D47.3 ; Current non-adherence to medical treatment Z91.19 and Overweight (BMI 25.0-29.9) E66.3 [facility] [address] [facility] [id number] [place] [address] 02 Dec, 2017 Controlled substance agreeme nt signed Z79.899 [place] [address] [facility] [id number] [place] [address] Nov, Type 2 diabetes mellitus wit h hyperglycemia E11.65 and Current non- adherence to medical treatment Z91.19 [facility] [address] [facility] [id number] [place] [address] Nov, [place] [address] [facility] [id number] [place] [address] Nov, Chronic pain G89.29 [facility] [address] [facility] [id number] [place] [address] Nov, [place] [address] [facility] [id number] [place] [address] Nov, Hypothyroid E03.9 [place] [address] [facility] [id number] [place] [address] Nov, Hypothyroid E03.9 [facility] [address] [facility] [id number] [place] [address] Nov, Pulmonary emphysema, unspeci fied emphysema type J43.9 and Irritable bowel syndrome with diarrhea K58.0 [place] [address] [address] Oct, [place] [address] [place] [id number] [place] [address] Oct, [place] [address] [address] Oct, [place] [address] [place] [id number] [place] [address] Oct, [place] [address] [address] Oct, Chronic pain G89.29 [place] [address] [address] Oct, Diabetes mellitus E11.9 ; De pression F32.9 ; Mixed hyperlipidemia E78.2 ; Hypotension, unspecified hypotension type I95.9 ; Pulmonary emphysema, unspecified emphysema type J43.9 and Weight loss, unintentional R63.4 [place] [address] [address] Oct, Chronic pain G89.29 [place] [address] [address] Sep, Chronic pain G89.29 [place] [address] [address] Sep, Hypothyroid E03.9 and Diabet es mellitus E11.9 [place] [address] [address] Aug, Type 2 diabetes mellitus wit h hyperglycemia E11.65 ; 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 ; Essential (primary) hypertension I10 ; Hypothyroid E03.9 ; Neuropathy G62.9 ; Chronic pain G89.29 ; Mixed hy perlipidemia E78.2 and Encounter for immunization Z23 [place] [address] [facility] [id number] [place] [address] Aug, Chronic pain G89.29 [facility] [address] [place] [id number] [place] [address] Aug, Overactive bladder N32.81 ; Diabetes mellitus E11.9 and Chronic pain G89.29 [facility] [address] [place] [id number] [place] [address] Jul, [facility] [address] [facility] [id number] [place] [address] Jun, [facility] [address] [place] [id number] [place] [address] Jun, [facility] [address] [place] [id number] [place] [address] Jun, Hypothyroid E03.9 [facility] [address] [place] [id number] [place] [address] Jun, Diabetes mellitus E11.9 ; Hy pothyroid E03.9 ; Neuropathy G62.9 ; Chronic pain G89.29 and Neck mass R22.1 [facility] [address] [place] [id number] [place] [address] Apr, [facility] [address] [place] [id number] [place] [address] Apr, Acute cystitis without hemat uria N30.00 [facility] [address] [place] [id number] [place] [address] March, [facility] [address] [facility] [id number] [place] [address] March, [facility] [address] [place] [id number] [place] [address] March, Near syncope R55 [facility] [address] [place] [id number] [place] [address] Feb, [facility] [address] [facility] [id number] [place] [address] Feb, Chronic pain G89.29 [facility] [address] [facility] [id number] [place] [address] Feb, [facility] [address] [facility] [id number] [place] [address] Feb, [facility] [address] [facility] [id number] [place] [address] Jan, Chronic pain G89.29 [facility] [address] [facility] [id number] [place] [address] Jan, [facility] [address] [place] [id number] [address] [place] [address] Jan, [facility] [address] [place] [id number] [address] [place] [address] Jan, Diabetes mellitus E11.9 ; Hy pothyroid E03.9 ; GERD (gastroesophageal reflux disease) K21.9 ; Insomnia G47.00 ; Functional 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 ; Neuropathy G62.9 ; Depression F32.9 ; Chronic pain G89.29 ; Irritable bowel syndrome with diarrhea K58.0 ; Overactive bladder N32.81 ; Mixed hyperlipidemia E78.2 and Bronchitis J40 [facility] [id number] [place] [address] Dec, [facility] [address] [facility] [id number] [place] [address] Dec, [facility] [address] [facility] [id number] [place] [address] Dec, [facility] [address] [place] [id number] [address] [place] [address] Dec, [facility] [address] [facility] [id number] [place] [address] Dec, Chronic pain G89.29 [facility] [address] [place] [id number] [place] [address] Dec, [facility] [address] [facility] [id number] [place] [address] Dec, [facility] [address] [facility] [id number] [place] [address] Dec, Type 2 diabetes mellitus wit h foot ulcer E11.621 [facility] [address] [place] [id number] [address] [place] [address] 17 Dec, 2016 Type 2 diabetes mellitus wit h foot ulcer E11.621 [facility] [address] [place] [id number] [address] [place] [address] 14 Dec, 2016 HTN (hypertension) I10 ; Dep ression F32.9 ; Type 2 diabetes mellitus with foot ulcer E11.621 ; Functional 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 ; Irritable bowel syndrome with diarrhea K58.0 ; Chronic pain G89.29 ; Insomnia G47.00 ; Overactive bladder N32.81 ; Mixed hyperlipidemia E78.2 ; Gastroesophageal reflux disease with esophagitis K21.0 and Acquired hypothyroidism E03.9 [place] [id number] [place] [id number] [address] [place] [id number] Nov, [facility] [address] [place] [id number] [address] [place] [id number] Oct, [place] [id number] [place] [id number] Oct, [place] [address] [place] [id number] [address] [place] [phone] Oct, [facility] [address] [place] [id number] [address] [place] [id number] Sep, Functional 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 ; HTN (hypertension) I10 ; Diabetes mellitus E11.9 ; Depression F32.9 ; Overactive bladder N32.81 ; Mixed hyperlipidemia E78.2 ; Gastroesophageal reflux disease without esophagitis K21.9 ; Chronic pain G89.29 ; Insomnia G47.00 and Acquired hypothyroidism E03.9 [place] [id number] [place] [id number] [address] [place] [phone] 04 Sep, 2016 [place] [id number] [id number] 11 Aug, 2016 Encounter for immunization Z 23 [facility] [address] [place] [id number] [place] [phone] 06 Aug, 2016 [place] [address] [id number] 09 Jul, 2016 [place] [address] [id number] Jun, Type 2 diabetes mellitus wit hout complications E11.9 ; HTN (hypertension) I10 ; Hypothyroid E03.9 ; Neuropathy G62.9 ; Depression F32.9 ; Chronic pain G89.29 ; GERD (gastroesophageal reflux disease) K21.9 ; Insomnia G47.00 ; Overactive bladder N32.81 ; Mixed hyperlipidemia E78.2 ; Diarrhea of infectious origin A09 and Environmental allergies Z91.09 [place] [address] [id number] Apr, [place] [address] [id number] March, Hypothyroidism, unspecified E03.9 and Mixed hyperlipidemia E78.2 [place] [address] [address] March, Diabetes mellitus E11.9 ; HT N (hypertension) I10 ; Hypothyroid E03.9 ; Depression F32.9 ; Overactive bladder N32.81 ; Other chronic pain G89.29 ; Lumbago with sciatica, unspecified side M54.40 ; Environmental allergies Z91.09 and Gastroesophageal reflux disease, esophagitis presence not specified K21.9 [place] [id number] [place] [id number] [address] [place] [address] March, [place] [address] [address] Jan, HTN (hypertension) I10 ; Hyp othyroid E03.9 ; Neuropathy G62.9 ; Diabetes mellitus E11.9 ; Chronic pain G89.29 ; GERD (gastroesophageal reflux disease) K21.9 ; Overactive bladder N32.81 and Depression F32.9 [place] [address] [address] 12 Dec, 2015 Ear pain, left H92.02 ; HTN (hypertension) I10 ; Hypothyroid E03.9 ; Neuropathy G62.9 ; Diabetes mellitus E11.9 ; Depression F32.9 ; GERD (gastroesophageal reflux disease) K21.9 ; Insomnia G47.00 and Overactive bladder N32.81 [place] [address] [address] Nov, Overactive bladder N32.81 an d Chronic pain G89.29 [place] [address] [address] Nov, Kidney failure N19 [place] [address] [address] Nov, [place] [address] [address] Nov, [place] [address] [address] Nov, Diabetes mellitus E11.9 ; De pression F32.9 ; Chronic pain G89.29 ; GERD (gastroesophageal reflux disease) K21.9 ; Insomnia G47.00 ; HTN (hypertension) I10 ; Hypothyroid E03.9 ; COPD (chronic obstructive pulmonary disease) J44.9 ; Bladder incontinence R32 and Incontinence R32 [place] [address] [address] Sep, Type 2 diabetes mellitus wit h foot ulcer E11.621 and Chromosomal abnormality, 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 [place] [address] [address] Sep, [place] [address] [address] Aug, [place] [address] [address] Aug, [place] [address] [address] Aug, HTN (hypertension) I10 ; Enc ounter for immunization Z23 ; Hypothyroid E03.9 ; Neuropathy G62.9 ; Diabetes mellitus E11.9 ; Depression F32.9 ; Chronic pain G89.29 ; GERD (gastroesophageal reflux disease) K21.9 ; Insomnia G47.00 and COPD (chronic obstructive pulmonary disease) J44.[address] [address] Jun, [address] [address] Jun, [address] [address] May, Essential hypertension, ivis gn 401.1 ; Unspecified hypothyroidism 244.9 ; Insomnia, unspecified 780.52 ; Shortness of breath 786.05 ; Depression 311 ; COPD (chronic obstructive pulmonary disease) 496 ; GERD (gastroesophageal reflux disease) 530.81 and Diabetes 1.5, 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 [address] May, [address] [address] May, [address] [address] May, Shortness of breath 786.05 ; Essential hypertension, benign 401.1 ; Diabetes mellitus 250.00 ; Hyperlipidemia 272.4 ; Hypothyroid 244.9 ; Insomnia 780.52 and Cough 786.[address] [address] Apr, [facility] [address] [facility] [id number] [place] [address] March, Shortness of breath 786.05 ; Nausea with vomiting 787.01 ; Essential hypertension, benign 401.1 ; Diabetes mellitus 250.00 ; Hyperlipidemia 272.4 and Hypothyroid 244.9 [facility] [address] [id number] [address] [place] [address] Feb, [facility] [address] [id number] [address] [place] [address] Feb, [facility] [address] [facility] [id number] [place] [address] Jan, [facility] [address] [id number] [address] [place] [address] Jan, [facility] [address] [facility] [id number] [place] [address] Jan, [facility] [address] [facility] [id number] [place] [address] Jan, [facility] [address] [facility] [id number] [place] [address] Jan, [facility] [address] [facility] [id number] [place] [address] Jan, [facility] [address] [facility] [id number] [place] [address] Jan, [facility] [address] [id number] [address] [place] [address] Jan, [facility] [address] [facility] [id number] [place] [address] Jan, [facility] [address] [facility] [id number] [place] [address] Jan, [facility] [address] [facility] [id number] [place] [address] Dec, [facility] [address] [id number] [address] [place] [address], [place] [address] Dec, 2014 [facility] [address] [id number] [address] [place] [address], [place] [address] Dec, 2014 [facility] [address] [id number] [address] [place] [address], [place] [address] Dec, 2014 [facility] [address] [id number] [address] [place] [address], [place] [address] Dec, 2014 [facility] [address] [id number] [address] [place] [address], [place] [address] Dec, 2014 [facility] [address] [id number] [address] [place] [address], [place] [address] Dec, 2014 [facility] [address] [id number] [address] [place] [address], [place] [address] Dec, 2014 [facility] [address] [id number] [address] [place] [address], [place] [address] Dec, 2014 [facility] [address] [id number] [address] [place] [address], [place] [address] Dec, 2014 [facility] [address] [id number] [address] [place] [address], [place] [address] Oct, [facility] [address] [id number] [address] [place] [address], [place] [address] Oct, [facility] [address] [id number] [address] [place] [address] Oct, [facility] [address] [id number] [address] [place] [address], [place] [address] Oct, [facility] [address] [id number] [address] [place] [address], [place] [address] Oct, [facility] [address] [id number] [address] [place] [address], [place] [address] Oct, [facility] [address] [id number] [address] [place] [address], [place] [address] 05 Oct, 2014 [facility] [address] [id number] [address] [place] [address], [place] [address] 05 Oct, 2014 [facility] [address] [id number] [address] [place] [address], [place] [address] Oct, [facility] [address] [id number] [address] [place] [address], [place] [address] Oct, [facility] [address] [id number] [address] [place] [address], [place] [address] Oct, [facility] [address] [id number] [address] [place] [address], [place] [address] Oct, [facility] [address] [id number] [address] [place] [address], [place] [address] Oct, [facility] [address] [id number] [address] [place] [address], [place] [address] Oct, [facility] [address] [id number] [address] [place] [address], [place] [address] Sep, [facility] [address] [id number] [address] [place] [address], [place] [address] Sep, [facility] [address] [id number] [address] [place] [address], [place] [address] Sep, [facility] [address] [id number] [address] [place] [address], [place] [address] Sep, [facility] [address] [id number] [address] [place] [address], [place] [address] Sep, [facility] [address] [id number] [address] [place] [address], [place] [address] Sep, [facility] [address] [id number] [address] [place] [address], [place] [address] Sep, [facility] [address] [id number] [address] [place] [address], [place] [address] Sep, [facility] [address] [id number] [address] [place] [address], [place] [address] Sep, [facility] [address] [id number] [address] [place] [address], [place] [address] Aug, [facility] [address] [id number] [address] [place] [address], [place] [address] Aug, [facility] [address] [id number] [address] [place] [address], [place] [address] Aug, [facility] [address] [id number] [address] [place] [address], [place] [address] 17 Aug, 2014 [facility] [address] [id number] [address] [place] [address], [place] [address] 16 Aug, 2014 [facility] [address] [id number] [address] [place] [address], [place] [address] Aug, [facility] [address] [id number] [address] [place] [address], [place] [address] Aug, [facility] [address] [id number] [address] [place] [address], [place] [address] Aug, [facility] [address] [id number] [address] [place] [address], [place] [address] Aug, [facility] [address] [id number] [address] [place] [address], [place] [address] 29 Jul, 2014 [facility] [address] [id number] [address] [place] [address], [place] [address] 29 Jul, 2013 [facility] [address] [id number] [address] [place] [address], [place] [address] 25 Jul, 2014 [facility] [address] [id number] [address] [place] [address], [place] [address] Jul, 2013 [facility] [address] [id number] [address] [place] [address], [place] [address] 25 Jul, 2013 [facility] [address] [id number] [address] [place] [address], [place] [address] Jul, [facility] [address] [id number] [facility] [place] [address] Jul, [facility] [address] [id number] [address] [place] [address], [place] [address] Jul, [facility] [address] [id number] [address] [place] [address], [place] [address] Jul, [facility] [address] [id number] [address] [place] [address], [place] [address] Jul, [facility] [address] [id number] [address] [place] [address], [place] [address] Jun, [facility] [address] [id number] [address] [place] [address], [place] [address] Jun, [facility] [address] [id number] [address] [place] [address], [place] [address] Jun, [facility] [address] [id number] [address] [place] [address], [place] [address] Jun, [facility] [address] [id number] [address] [place] [address], [place] [address] Jun, [facility] [address] [id number] [address] [place] [address], [place] [address] Jun, [facility] [address] [id number] [address] [place] [address], [place] [address] Jun, [facility] [address] [id number] [address] [place] [address], [place] [address] Jun, [facility] [address] [id number] [address] [place] [address], [place] [address] Jun, [facility] [address] [id number] [address] [place] [address], [place] [address] Jun, [facility] [address] [id number] [address] [place] [address], [place] [address] Jun, [facility] [address] [id number] [address] [place] [address], [place] [address] Jun, [facility] [address] [id number] [address] [place] [address], [place] [address] May, [facility] [address] [id number] [address] [place] [address], [place] [address] May, [facility] [address] [id number] [address] [place] [address], [place] [address] May, [facility] [address] [id number] [address] [place] [address], [place] [address] May, [facility] [address] [id number] [address] [place] [address], [place] [address] May, [facility] [address] [id number] [address] [place] [address], [place] [address] May, [facility] [address] [id number] [address] [place] [address], [place] [address] March, [facility] [address] [id number] [address] [place] [address], [place] [address] March, [facility] [address] [id number] [address] [place] [address], [place] [address] March, [facility] [address] [id number] [address] [place] [address], [place] [address] March, [facility] [address] [id number] [address] [place] [address], [place] [address] March, [facility] [address] [id number] [address] [place] [address], [place] [address] March, [facility] [address] [id number] [address] [place] [address], [place] [address] Feb, [facility] [address] [id number] [address] [place] [address], [place] [address] Feb, [facility] [address] [id number] [address] [place] [address], [place] [address] Feb, [facility] [address] [id number] [address] [place] [address], [place] [address] Feb, [facility] [address] [id number] [address] [place] [address], [place] [address] Jan, [facility] [address] [id number] [address] [place] [address], [place] [address] Jan, [facility] [address] [id number] [address] [place] [address], [place] [address] Jan, [facility] [address] [id number] [address] [place] [address], [place] [address] Jan, [facility] [address] [id number] [address] [place] [address], [place] [address] Jan, [facility] [address] [id number] [address] [place] [address], [place] [address] Jan, [facility] [address] [id number] [address] [place] [address], [place] [address] Jan, [facility] [address] [id number] [address] [place] [address], [place] [address] Jan, [facility] [address] [id number] [address] [place] [address], [place] [address] Jan, [facility] [address] [id number] [address] [place] [address], [place] [address] Jan, [facility] [address] [id number] [address] [place] [address], [place] [address] Jan, [facility] [address] [id number] [address] [place] [address], [place] [address] Jan, [facility] [address] [id number] [address] [place] [address], [place] [address] Dec, [facility] [address] [id number] [address] [place] [address], [place] [address] Dec, [facility] [address] [id number] [address] [place] [address] Dec, [facility] [address] [id number] [address] [place] [address], [place] [address] Dec, [facility] [address] [id number] [address] [place] [address], [place] [address] Dec, [facility] [address] [id number] [address] [place] [address], [place] [address] Dec, [facility] [address] [id number] [address] [place] [address], [place] [address] Nov, [facility] [address] [id number] [address] [place] [address], [place] [address] Nov, [facility] [address] [id number] [address] [place] [address], [place] [address] Oct, [facility] [address] [id number] [address] [place] [address], [place] [address] Oct, [facility] [address] [id number] [address] [place] [address], [place] [address] Oct, [facility] [address] [id number] [address] [place] [address], [place] [address] Oct, [facility] [address] [id number] [address] [place] [address], [place] [address] Oct, [facility] [address] [id number] [address] [place] [address], [place] [address] Oct, [facility] [address] [id number] [address] [place] [address], [place] [address] Sep, [facility] [address] [id number] [address] [place] [address], [place] [address] Sep, [facility] [address] [id number] [address] [place] [address], [place] [address] Sep, [facility] [address] [id number] [address] [place] [address], [place] [address] Sep, [facility] [address] [id number] [address] [place] [address], [place] [address] Aug, [facility] [address] [id number] [address] [place] [address], [place] [address] Aug, [facility] [address] [id number] [address] [place] [address], [place] [address] Aug, [facility] [address] [id number] [address] [place] [address], [place] [address] Jul, [facility] [address] [id number] [address] [place] [address], [place] [address] Jul, [facility] [address] [id number] [address] [place] [address], [place] [address] Jul, [facility] [address] [id number] [address] [place] [address], [place] [address] Jun, [facility] [address] [id number] [address] [place] [address], [place] [address] Jun, [facility] [address] [id number] [address] [place] [address], [place] [address] Jun, [facility] [address] [id number] [address] [place] [address], [place] [address] Apr, [facility] [address] [id number] [address] [place] [address], [place] [address] Apr, [facility] [address] [id number] [address] [place] [address], [place] [address] March, [facility] [address] [id number] [address] [place] [address], [place] [address] March, [facility] [address] [id number] [address] [place] [address], [place] [address] March, [facility] [address] [id number] [address] [place] [address], [place] [address] March, [facility] [address] [id number] [address] [place] [address] Feb, [facility] [address] [id number] [address] [place] [address], [place] [address] Jan, [facility] [address] [id number] [address] [place] [address], [place] [address] 13 Dec, 2012 [facility] [address] [id number] [address] [place] [address], [place] [address] 08 Dec, 2012 [facility] [address] [id number] [address] [place] [address], [place] [address] 07 Dec, 2012 [facility] [address] [id number] [address] [place] [address], [place] [address] Nov, [facility] [address] [id number] [address] [place] [address], [place] [address] Oct, [facility] [address] [id number] [address] [place] [address], [place] [address] Oct, [facility] [address] [id number] [address] [place] [address], [place] [address] Sep, [facility] [address] [id number] [address] [place] [address], [place] [address] Sep, [facility] [address] [id number] [address] [place] [address], [place] [address] Sep, [facility] [address] [id number] [address] [place] [address], [place] [address] Sep, [facility] [address] [id number] [address] [place] [address] Sep, [facility] [address] [id number] [address] [place] [address], [place] [address] Sep, [facility] [address] [id number] [address] [place] [address], [place] [address] Sep, [facility] [address] [id number] [address] [place] [address], [place] [address] 16 Aug, 2012 [facility] [address] [id number] [address] [place] [address], [place] [address] 16 Aug, 2012 [facility] [address] [id number] [address] [place] [address], [place] [address] 10 Aug, 2012 [facility] [address] [id number] [address] [place] [address], [place] [address] 10 Aug, 2012 [facility] [address] [id number] [address] [place] [address], [place] [address] 08 Aug, 2012 [facility] [address] [id number] [address] [place] [address], [place] [address] 08 Aug, 2012 [facility] [address] [id number] [address] [place] [address], [place] [address] Aug, [facility] [address] [id number] [address] [place] [address], [place] [address] Aug, [facility] [address] [id number] [address] [place] [address], [place] [address] Jul, [facility] [address] [id number] [address] [place] [address], [place] [address] Jul, [facility] [address] [id number] [address] [place] [address], [place] [address] Jun, [facility] [address] [id number] [address] [place] [address], [place] [address] May, [facility] [address] [id number] [address] [place] [address], [place] [address] Apr, [facility] [address] [id number] [address] [place] [address], [place] [address] Apr, [facility] [address] [id number] [address] [place] [address], [place] [address] Apr, [facility] [address] [id number] [address] [place] [address], [place] [address] March, [facility] [address] [id number] [address] [place] [address], [place] [address] March, [facility] [address] [id number] [facility] [place] [address] March, [facility] [address] [id number] [address] [place] [address], [place] [address] March, [facility] [address] [id number] [address] [place] [address], [place] [address] March, [facility] [address] [id number] [address] [place] [address], [place] [address] March, [facility] [address] [id number] [address] [place] [address], [place] [address] March, [facility] [address] [id number] [address] [place] [address], [place] [address] Jan, [facility] [address] [id number] [address] [place] [address], [place] [address] Jan, [facility] [address] [id number] [address] [place] [address], [place] [address] Jan, [facility] [address] [id number] [address] [place] [address], [place] [address] Jan, [facility] [address] [id number] [address] [place] [address], [place] [address] Jan, [facility] [address] [id number] [address] [place] [address], [place] [address] Dec, [facility] [address] [id number] [address] [place] [address], [place] [address] Dec, [facility] [address] [id number] [address] [place] [address], [place] [address] Nov, [facility] [address] [id number] [address] [place] [address], [place] [address] Nov, [facility] [address] [id number] [address] [place] [address], [place] [address] Nov, [facility] [address] [id number] [address] [place] [address], [place] [address] 05 Nov, 2011 [facility] [address] [id number] [address] [place] [address], [place] [address] 21 Oct, 2011 [facility] [address] [id number] [address] [place] [address], [place] [address] 06 Oct, 2011 [facility] [address] [id number] [address] [place] [address], [place] [address] 14 Sep, 2011 [facility] [address] [id number] [address] [place] [address], [place] [address] 10 Sep, 2011 [facility] [address] [id number] [address] [place] [address], [place] [address] 10 Sep, 2011 [facility] [address] [id number] [address] [place] [address], [place] [address] May, [facility] [address] [id number] [address] [place] [address], [place] [address] 20 Nov, 2010 [facility] [address] [id number] [address] [place] [address], [place] [address] 29 Oct, 2010 [facility] [address] [id number] [address] [place] [address], [place] [address] 14 Oct, 2010 [facility] [address] [id number] [address] [place] [address], [place] [address] 08 Oct, 2010 [facility] [address] [id number] [address] [place] [address], [place] [address] 15 Sep, 2010 [facility] [address] [id number] [address] [place] [address], [place] [address] Sep, [facility] [address] [id number] [address] [place] [address], [place] [address] Aug, [facility] [address] [id number] [address] [place] [address], [place] [address] March, [facility] [address] [id number] [address] [place] [address], [place] [address] Oct, [facility] [address] [id number] [address] [place] [phone] Oct, [facility] [address] [id number] [address] [place] [phone] Oct, [facility] [address] [id number] [address] [place] [id number] Oct, [facility] [address] [id number] [address] [place] [phone] Sep, [facility] [address] [id number] [address] [place] [phone] Sep, [facility] [address] [id number] [address] [place] [id number] Sep, [facility] [address] [id number] [address] [place] [id number] Aug, [facility] [address] [id number] [address] [place] [phone] Aug, [facility] [address] [id number] [address] [place] [phone] Aug, [facility] [address] [id number] [address] [place] [phone] Jan, IMMUNIZATIONS No Known Immunizations SOCIAL HISTORY [...]
--- OUTSIDE RECORDS SUMMARY | 2020-06-13 15:54 | XMS REPORT ---
Author Author Jah Durant Doctor Organization [facility] Address Unknown Phone Unavailable Care Team Providers Care Manager Money Name Role Phone Migration, Doctor Unavailable Unavailable PROBLEMS Type Condition ICD9-CM Code AJR88-ME Code Onset Dates Condition S tatus SNOMED Code Problem Neuropathy G62.9 Active 802651465 Problem Chronic pain G89.29 Active 4723419 1 Problem Overactive bladder N32.81 Active 2 90275452 Problem Hypothyroid E03.9 Active 39571743 Problem Gastroesophageal reflux disease with esophagitis K 21.0 Active 187435351 Problem Mixed hyperlipidemia E78.2 Active 680274539 Problem Type 2 diabetes mellitus with hyperglycemia E11.65 Active 94915374 Problem Essential (primary) hypertension I10 Active 20181588 Problem Anxiety disorder, unspecified type F41.9 Active 997934683 Problem [facility] (current) use of insulin Z79.4 Active 081736080 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 Active 828678992 Problem Ulcer of foot, limited to breakdown of skin, uns pecified laterality L97.501 Active 18368527 Problem Irritable bowel syndrome with diarrhea K58.0 Active 525592816 Problem Gastroparesis K31.84 Active 623567 006 Problem 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 Active 526347131 Problem Chronic obstructive pulmonary disease, unspecified COPD ty pe J44.9 Active 04227074 Problem Major depressive disorder, recurrent, in full remission F33.42 Active 55017037 ALLERGIES No Information ENCOUNTERS Encounter Location Date Diagnosis [facility] [address] [facility] [id number] [address] [place] [address] Apr, Chronic pain G89.[address] [id number] [address] Apr, Chronic pain G89.29 [facility] [address] [facility] [id number] [address] [place] [phone] March, Ulcer of foot, limited to br eakdown of skin, unspecified laterality L97.501 [facility] [address] [facility] [id number] [address] [place] [address] March, Chronic pain G89.29 [facility] [address] [facility] [id number] [address] [place] [address] Feb, Chronic pain G89.29 [facility] [address] [place] [id number] [place] [address] 13 Jan, 2020 Type 2 diabetes mellitus wit h hyperglycemia E11.65 ; termite control service representative (current) use of insulin Z79.4 and Hyperkalemia E87.5 [place] [address] [address] 10 Jan, 2020 Type 2 diabetes mellitus wit h diabetic autonomic (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 ; Hypothyroid E03.9 ; Dyshydrosis L30.1 and Irritable bowel syndrome with diarrhea K58.0 [place] [address] [place] [id number] [place] [address] 05 Jan, 2020 Chronic pain G89.29 [place] [address] [place] [id number] [place] [address] 10 Dec, 2019 Chronic pain G89.29 [place] [address] [place] [id number] [address] [place] [phone] 07 Dec, 2019 [place] [address] [place] [id number] [place] [address] Dec, [facility] [address] [facility] [id number] [address] [place] [address] Nov, Chronic pain G89.29 [place] [address] [place] [id number] [place] [address] Oct, Chronic pain G89.29 [place] [address] [place] [id number] [place] [address] Sep, Chronic pain G89.29 [place] [address] [place] [id number] [place] [phone] Sep, Type 2 diabetes mellitus wit h diabetic autonomic (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 ; Irritable bowel syndrome with diarrhea K58.0 ; Essential (primary) hypertension I10 and Encounter for immunization Z23 [facility] [address] [facility] [id number] [address] [place] [address] Aug, Chronic pain G89.29 [facility] [address] [facility] [id number] [address] [place] [address] Aug, [facility] [address] [facility] [id number] [address] [place] [phone] Jul, Chronic pain G89.29 [facility] [address] [facility] [id number] [address] [place] [phone] Jun, Other chronic pain G89.29 [facility] [address] [facility] [id number] [address] [place] [phone] Jun, [facility] [address] [facility] [id number] [address] [place] [address] Jun, Chronic pain G89.29 [facility] [address] [facility] [id number] [address] [place] [address] Jun, Neuropathy G62.9 [facility] [address] [facility] [id number] [address] [place] [phone] 06 Jun, 2019 Encounter for Medicare annua wellness exam Z00.00 ; Type 2 diabetes mellitus with hyperglycemia E11.65 ; Mixed hyperlipidemia E78.2 ; Hypothyroid E03.9 ; Gastroesophageal reflux disease with esophagitis K21.0 ; Essential (primary) hypertension I10 ; Major depressive disorder, recurrent, in full remission F33.42 ; Chronic obstructive pulmonary disease, unspecified COPD type J44.9 ; Neuropathy G62.9 and Encounter for immunization Z23 [facility] [address] [facility] [id number] [address] [place] [phone] 05 Jun, 2019 Irritable bowel syndrome wit h diarrhea K58.0 [facility] [address] [facility] [id number] [address] [place] [address] May, Chronic pain G89.29 [facility] [address] [facility] [id number] [address] [place] [address] May, Type 2 diabetes mellitus wit h hyperglycemia E11.65 and Neuropathy G62.9 [facility] [address] [id number] [address] [place] [address] May, Chronic pain G89.29 [facility] [address] [id number] [address] [place] [address] Apr, Poison maryam dermatitis L23.7 [facility] [address] [facility] [id number] [address] [place] [address] Apr, Chronic pain G89.29 [facility] [address] [facility] [id number] [address] [place] [address] March, Type 2 diabetes mellitus wit h hyperglycemia E11.65 [facility] [address] [facility] [id number] [address] [place] [address] March, Chronic pain G89.29 [facility] [address] [facility] [id number] [address] [place] [address] March, [id number] [place] [phone] Feb, [facility] [address] [facility] [id number] [address] [place] [address] Feb, Other chronic pain G89.29 an d Chronic pain G89.29 [facility] [address] [facility] [id number] [address] [place] [address] Jan, Mixed hyperlipidemia E78.2 [facility] [address] [facility] [id number] [address] [place] [address] Jan, Chronic pain G89.29 [facility] [address] 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 [id number] [address] [place] [address] 11 Dec, 2018 Chronic pain G89.29 [facility] [address] [facility] [id number] [address] [place] [address] 14 Nov, 2018 Chronic pain G89.29 [facility] [address] [place] [id number] [address] [place] [phone] Nov, [facility] [address] [place] [id number] [place] [address] Oct, Chronic pain G89.29 [facility] [address] [place] [id number] [place] [id number] Oct, [facility] [address] [place] [id number] [place] [phone] Sep, [facility] [address] [place] [id number] [place] [address] Sep, Type 2 diabetes mellitus wit h hyperglycemia E11.65 [place] [address] [address] Sep, Chronic pain G89.29 [facility] [address] [place] [id number] [place] [address] Sep, [facility] [address] [place] [id number] [place] [address] Sep, Type 2 diabetes mellitus wit h hyperglycemia E11.65 ; Irritable bowel syndrome with diarrhea K58.0 ; Gastroparesis K31.84 ; 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 and Dermatitis L30.9 [facility] [address] [facility] [id number] [address] [place] [address] Aug, Chronic pain G89.29 [facility] [address] [place] [id number] [place] [address] Jul, Chronic pain G89.29 [facility] [address] [facility] [id number] [address] [place] [phone] Jun, Type 2 diabetes mellitus wit h hyperglycemia E11.65 ; Neuropathy G62.9 ; Recurrent major depressive disorder, in partial remission F33.41 ; Chronic pain G89.29 and Hypertriglyceridemia E78.1 [facility] [address] [facility] [id number] [address] [place] [phone] Jun, Hypothyroid E03.9 [place] [address] [facility] [id number] [address] [place] [phone] Jun, Major depressive disorder, r ecurrent episode, moderate F33.1 and Anxiety disorder, unspecified type F41.9 [place] [address] 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 [id number] [address] [place] [phone] May, [place] [address] [facility] [id number] [address] [place] [phone] May, [place] [address] [facility] [id number] [address] [place] [address] May, [place] [address] [facility] [id number] [address] [place] [address] May, Generalized abdominal pain R 10.84 and Candidal dermatitis B37.2 [facility] [address] [facility] [id number] [address] [place] [address] May, [place] [address] [place] [id number] [place] [phone] May, [facility] [address] [id number] [address] [place] [phone] 13 May, 2018 Nodular radiologic density R 93.8 ; Weight loss, unintentional R63.4 and Pulmonary emphysema, unspecified emphysema type J43.9 [place] [address] [id number] [address] [place] [address] 10 May, 2018 Chronic pain G89.29 [place] [address] [id number] [address] [place] [phone] 09 May, 2018 Syncope and collapse R55 ; C hronic fatigue R53.[address] lung screening R91.8 [place] [address] [id number] [address] [place] [address] May, [place] [address] [facility] [id number] [address] [place] [address] Apr, Chronic fatigue R53.82 ; Abn ormal chest CT R93.8 ; Elevated erythrocyte sedimentation rate R70.0 ; Hypothyroid E03.9 and Recurrent major depressive disorder, in partial remission F33.41 [place] [address] [id number] [address] [place] [address] Apr, Hypothyroid E03.9 [place] [address] [id number] [address] [place] [phone] Apr, Depression F32.9 [place] [address] [id number] [address] [place] [address] Apr, [place] [address] [id number] [address] [place] [address] March, [place] [address] [facility] [id number] [address] [place] [address] March, Hypothyroid E03.9 [place] [address] [id number] [address] [place] [address] March, Diabetes mellitus E11.9 and Hypothyroid E03.9 [place] [address] [place] [id number] [place] [address] March, Diabetes mellitus E11.9 [place] [address] [place] [id number] [place] [address] March, Hypothyroid E03.9 and Elevat ed liver enzymes R74.8 [place] [address] [place] [id number] [place] [address] March, Type 2 diabetes mellitus wit h hyperglycemia E11.65 ; 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 ; Pulmonary emphysema, unspecified emphysema type J43.9 ; Hypothyroid E03.9 ; Neuropathy G62.9 ; Mixed hyperlipidemia E78.2 ; Chronic pain G89.29 ; Gastroesophageal reflux disease with esophagitis K21.0 ; Irritable bowel syndrome with diarrhea K58.0 ; Overactive bladder N32.81 and Recurrent major depressive disorder, in partial remission F33.41 [place] [address] [address] Feb, Chronic pain G89.29 [place] [address] [place] [id number] [place] [address] Feb, Type 2 diabetes mellitus wit h hyperglycemia E11.65 and Skin lesion of scalp L98.9 [place] [address] [place] [id number] [place] [address] Feb, [place] [address] [place] [id number] [place] [address] Jan, Type 2 diabetes mellitus wit h hyperglycemia E11.65 ; 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 [id number] [address] [place] [address] Jan, Controlled substance agreeme nt signed Z79.899 [place] [address] [facility] [id number] [address] [place] [address] 08 Dec, 2017 Type 2 diabetes mellitus wit h hyperglycemia E11.65 ; Controlled substance agreement signed Z79.899 ; [facility] 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 Z79.4 ; Essential (primary) hypertension I10 ; Hypothyroid E03.9 ; Neuropathy G62.9 ; Depression F32.9 ; Mixed hyperlipidemia E78.2 ; Irritable bowel syndrome with diarrhea K58.0 ; Gastroesophageal reflux disease with esophagitis K21.0 ; Thrombocytosis D47.3 ; Current non-adherence to medical treatment Z91.19 and Overweight (BMI 25.0-29.9) E66.3 [place] [address] [facility] [id number] [address] [place] [address] 02 Dec, 2017 Controlled substance agreeme nt signed Z79.899 [place] [address] [facility] [id number] [address] [place] [address] Nov, Type 2 diabetes mellitus wit h hyperglycemia E11.65 and Current non- adherence to medical treatment Z91.19 [place] [address] [facility] [id number] [address] [place] [phone] Nov, [place] [address] [facility] [id number] [address] [place] [address] Nov, Chronic pain G89.29 [place] [address] [facility] [id number] [address] [place] [address] Nov, [place] [address] [facility] [id number] [address] [place] [address] Nov, Hypothyroid E03.9 [place] [address] [facility] [id number] [address] [place] [address] Nov, Hypothyroid E03.9 [place] [address] [facility] [id number] [address] [place] [phone] Nov, Pulmonary emphysema, unspeci fied emphysema type J43.9 and Irritable bowel syndrome with diarrhea K58.0 [place] [address] [address] Oct, [place] [address] [place] [id number] [place] [address] Oct, [place] [address] [address] Oct, [place] [address] [place] [id number] [place] [address] Oct, [place] [address] [address] Oct, Chronic pain G89.29 [place] [address] [address] Oct, Diabetes mellitus E11.9 ; De pression F32.9 ; Mixed hyperlipidemia E78.2 ; Hypotension, unspecified hypotension type I95.9 ; Pulmonary emphysema, unspecified emphysema type J43.9 and Weight loss, unintentional R63.4 [place] [address] [address] Oct, Chronic pain G89.29 [place] [address] [address] Sep, Chronic pain G89.29 [place] [address] [address] Sep, Hypothyroid E03.9 and Diabet es mellitus E11.9 [place] [address] [address] Aug, Type 2 diabetes mellitus wit h hyperglycemia E11.65 ; 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 [id number] [address] [place] [address] Aug, Chronic pain G89.29 [facility] [address] [place] [id number] [place] [address] Aug, Overactive bladder N32.81 ; Diabetes mellitus E11.9 and Chronic pain G89.29 [facility] [address] [place] [id number] [place] [address] Jul, [facility] [address] [facility] [id number] [address] [place] [address] Jun, [facility] [address] [place] [id number] [place] [address] Jun, [facility] [address] [place] [id number] [place] [address] Jun, Hypothyroid E03.9 [facility] [address] [place] [id number] [place] [address] Jun, Diabetes mellitus E11.9 ; Hy pothyroid E03.9 ; Neuropathy G62.9 ; Chronic pain G89.29 and Neck mass R22.1 [facility] [address] [place] [id number] [place] [address] Apr, [facility] [address] [place] [id number] [place] [address] Apr, Acute cystitis without hemat uria N30.00 [facility] [address] [place] [id number] [place] [address] March, [facility] [address] [facility] [facility] [id number] [address] [place] [address] March, [facility] [address] [place] [id number] [place] [address] March, Near syncope R55 [facility] [address] [place] [id number] [place] [address] Feb, [facility] [address] [facility] [id number] [address] [place] [address] Feb, Chronic pain G89.29 [facility] [address] [facility] [id number] [address] [place] [address] Feb, [facility] [address] [facility] [id number] [address] [place] [phone] Feb, [facility] [address] [facility] [id number] [address] [place] [address] Jan, Chronic pain G89.29 [facility] [address] [facility] [id number] [address] [place] [address] Jan, [facility] [address] [place] [id number] [place] [address] Jan, [facility] [address] [place] [id number] [address] [place] [address] Jan, Diabetes mellitus E11.9 ; Hy pothyroid E03.9 ; GERD (gastroesophageal reflux disease) K21.9 ; Insomnia G47.00 ; Functional 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 ; Neuropathy G62.9 ; Depression F32.9 ; Chronic pain G89.29 ; Irritable bowel syndrome with diarrhea K58.0 ; Overactive bladder N32.81 ; Mixed hyperlipidemia E78.2 and Bronchitis J40 [facility] [id number] [place] [id number] Dec, [facility] [address] [facility] [id number] [address] [place] [phone] Dec, [facility] [address] [facility] [id number] [address] [place] [id number] Dec, [facility] [address] [id number] [address] [place] [id number] Dec, [facility] [address] [facility] [id number] [address] [place] [phone] Dec, Chronic pain G89.29 [facility] [id number] [place] [address] Dec, [facility] [address] [facility] [id number] [address] [place] [phone] Dec, [facility] [address] [facility] [id number] [address] [place] [id number] Dec, Type 2 diabetes mellitus wit h foot ulcer E11.621 [facility] [address] [id number] [address] [place] [id number] 17 Dec, 2016 Type 2 diabetes mellitus wit h foot ulcer E11.621 [facility] [id number] [place] [id number] 14 Dec, 2016 HTN (hypertension) I10 ; Dep ression F32.9 ; Type 2 diabetes mellitus with foot ulcer E11.621 ; Functional 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 ; Irritable bowel syndrome with diarrhea K58.0 ; Chronic pain G89.29 ; Insomnia G47.00 ; Overactive bladder N32.81 ; Mixed hyperlipidemia E78.2 ; Gastroesophageal reflux disease with esophagitis K21.0 and Acquired hypothyroidism E03.9 [place] [address] [place] [id number] [address] [place] [id number] Nov, [facility] [address] [place] [id number] [address] [place] [id number] Oct, [place] [id number] [place] [id number] Oct, [place] [address] [place] [id number] [address] [place] [id number] Oct, [facility] [address] [place] [id number] [address] [place] [id number] Sep, Functional 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 ; HTN (hypertension) I10 ; Diabetes mellitus E11.9 ; Depression F32.9 ; Overactive bladder N32.81 ; Mixed hyperlipidemia E78.2 ; Gastroesophageal reflux disease without esophagitis K21.9 ; Chronic pain G89.29 ; Insomnia G47.00 and Acquired hypothyroidism E03.9 [place] [place] [id number] [address] [place] [id number] 04 Sep, 2016 [place] [address] [address] 11 Aug, 2016 Encounter for immunization Z 23 [facility] [address] [place] [id number] [place] [id number] 06 Aug, 2016 [place] [address] [id number] 09 Jul, 2016 [place] [address] [address] Jun, Type 2 diabetes mellitus wit hout complications E11.9 ; HTN (hypertension) I10 ; Hypothyroid E03.9 ; Neuropathy G62.9 ; Depression F32.9 ; Chronic pain G89.29 ; GERD (gastroesophageal reflux disease) K21.9 ; Insomnia G47.00 ; Overactive bladder N32.81 ; Mixed hyperlipidemia E78.2 ; Diarrhea of infectious origin A09 and Environmental allergies Z91.09 [place] [address] [address] Apr, [place] [address] [address] March, Hypothyroidism, unspecified E03.9 and Mixed hyperlipidemia E78.2 [place] [address] [address] March, Diabetes mellitus E11.9 ; HT N (hypertension) I10 ; Hypothyroid E03.9 ; Depression F32.9 ; Overactive bladder N32.81 ; Other chronic pain G89.29 ; Lumbago with sciatica, unspecified side M54.40 ; Environmental allergies Z91.09 and Gastroesophageal reflux disease, esophagitis presence not specified K21.9 [place] [address] [place] [id number] [address] [place] [phone] March, [place] [address] [address] Jan, HTN (hypertension) I10 ; Hyp othyroid E03.9 ; Neuropathy G62.9 ; Diabetes mellitus E11.9 ; Chronic pain G89.29 ; GERD (gastroesophageal reflux disease) K21.9 ; Overactive bladder N32.81 and Depression F32.9 [place] [address] [address] 12 Dec, 2015 Ear pain, left H92.02 ; HTN (hypertension) I10 ; Hypothyroid E03.9 ; Neuropathy G62.9 ; Diabetes mellitus E11.9 ; Depression F32.9 ; GERD (gastroesophageal reflux disease) K21.9 ; Insomnia G47.00 and Overactive bladder N32.81 [place] [address] [address] Nov, Overactive bladder N32.81 an d Chronic pain G89.29 [place] [address] [address] Nov, Kidney failure N19 [place] [address] [address] Nov, [place] [address] [address] Nov, [place] [address] [address] Nov, Diabetes mellitus E11.9 ; De pression F32.9 ; Chronic pain G89.29 ; GERD (gastroesophageal reflux disease) K21.9 ; Insomnia G47.00 ; HTN (hypertension) I10 ; Hypothyroid E03.9 ; COPD (chronic obstructive pulmonary disease) J44.9 ; Bladder incontinence R32 and Incontinence R32 [place] [address] [address] Sep, Type 2 diabetes mellitus wit h foot ulcer E11.621 and Chromosomal abnormality, 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 [place] [address] [address] Sep, [place] [address] [address] Aug, [place] [address] [address] Aug, [place] [address] [address] Aug, HTN (hypertension) I10 ; Enc ounter for immunization Z23 ; Hypothyroid E03.9 ; Neuropathy G62.9 ; Diabetes mellitus E11.9 ; Depression F32.9 ; Chronic pain G89.29 ; GERD (gastroesophageal reflux disease) K21.9 ; Insomnia G47.00 and COPD (chronic obstructive pulmonary disease) J44.[address] [address] Jun, [address] [address] Jun, [address] [address] May, Essential hypertension, ivis gn 401.1 ; Unspecified hypothyroidism 244.9 ; Insomnia, unspecified 780.52 ; Shortness of breath 786.05 ; Depression 311 ; COPD (chronic obstructive pulmonary disease) 496 ; GERD (gastroesophageal reflux disease) 530.81 and Diabetes 1.5, 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 [address] May, [address] [address] May, [address] [address] May, Shortness of breath 786.05 ; Essential hypertension, benign 401.1 ; Diabetes mellitus 250.00 ; Hyperlipidemia 272.4 ; Hypothyroid 244.9 ; Insomnia 780.52 and Cough 786.[address] [address] Apr, [facility] [address] [facility] [id number] [address] [place] [address] March, Shortness of breath 786.05 ; Nausea with vomiting 787.01 ; Essential hypertension, benign 401.1 ; Diabetes mellitus 250.00 ; Hyperlipidemia 272.4 and Hypothyroid 244.9 [facility] [address] [id number] [address] [place] [phone] Feb, [facility] [address] [id number] [address] [place] [phone] Feb, [facility] [address] [facility] [id number] [address] [place] [phone] Jan, [facility] [address] [id number] [address] [place] [phone] Jan, [facility] [address] [facility] [id number] [address] [place] [phone] Jan, [facility] [address] [id number] [address] [place] [phone] Jan, [facility] [address] [id number] [address] [place] [phone] Jan, [facility] [address] [id number] [address] [place] [phone] Jan, [facility] [address] [id number] [address] [place] [phone] Jan, [facility] [address] [id number] [address] [place] [id number] Jan, [facility] [address] [id number] [address] [place] [phone] Jan, [facility] [address] [id number] [address] [place] [phone] Jan, [facility] [address] [id number] [address] [place] [id number] Dec, [facility] [address] [id number] [address] [place] [address], [place] [address] Dec, 2014 [facility] [address] [id number] [address] [place] [address], [place] [address] Dec, 2014 [facility] [address] [id number] [address] [place] [address], [place] [address] Dec, 2014 [facility] [address] [id number] [address] [place] [address], [place] [address] Dec, 2014 [facility] [address] [id number] [address] [place] [address], [place] [address] Dec, 2014 [facility] [address] [id number] [address] [place] [address], [place] [address] Dec, 2014 [facility] [address] [id number] [address] [place] [address], [place] [address] Dec, 2014 [facility] [address] [id number] [address] [place] [address], [place] [address] Dec, 2014 [facility] [address] [id number] [address] [place] [address], [place] [address] Dec, 2014 [facility] [address] [id number] [address] [place] [address], [place] [address] Oct, [facility] [address] [id number] [address] [place] [address], [place] [address] Oct, [facility] [address] [id number] [address] [place] [phone] Oct, [facility] [address] [id number] [address] [place] [address], [place] [address] Oct, [facility] [address] [id number] [address] [place] [address], [place] [address] Oct, [facility] [address] [id number] [address] [place] [address], [place] [address] Oct, [facility] [address] [id number] [address] [place] [address], [place] [address] 05 Oct, 2014 [facility] [address] [id number] [address] [place] [address], [place] [address] 05 Oct, 2014 [facility] [address] [id number] [address] [place] [address], [place] [address] Oct, [facility] [address] [id number] [address] [place] [address], [place] [address] Oct, [facility] [address] [id number] [address] [place] [address], [place] [address] Oct, [facility] [address] [id number] [address] [place] [address], [place] [address] Oct, [facility] [address] [id number] [address] [place] [address], [place] [address] Oct, [facility] [address] [id number] [address] [place] [address], [place] [address] Oct, [facility] [address] [id number] [address] [place] [address], [place] [address] Sep, [facility] [address] [id number] [address] [place] [address], [place] [address] Sep, [facility] [address] [id number] [address] [place] [address], [place] [address] Sep, [facility] [address] [id number] [address] [place] [address], [place] [address] Sep, [facility] [address] [id number] [address] [place] [address], [place] [address] Sep, [facility] [address] [id number] [address] [place] [address], [place] [address] Sep, [facility] [address] [id number] [address] [place] [address], [place] [address] Sep, [facility] [address] [id number] [address] [place] [address], [place] [address] Sep, [facility] [address] [id number] [address] [place] [address], [place] [address] Sep, [facility] [address] [id number] [address] [place] [address], [place] [address] Aug, [facility] [address] [id number] [address] [place] [address], [place] [address] Aug, [facility] [address] [id number] [address] [place] [address], [place] [address] Aug, [facility] [address] [id number] [address] [place] [address], [place] [address] 17 Aug, 2014 [facility] [address] [id number] [address] [place] [address], [place] [address] 16 Aug, 2014 [facility] [address] [id number] [address] [place] [address], [place] [address] Aug, [facility] [address] [id number] [address] [place] [address], [place] [address] Aug, [facility] [address] [id number] [address] [place] [address], [place] [address] Aug, [facility] [address] [id number] [address] [place] [address], [place] [address] Aug, [facility] [address] [id number] [address] [place] [address], [place] [address] 29 Jul, 2014 [facility] [address] [id number] [address] [place] [address], [place] [address] 29 Jul, 2013 [facility] [address] [id number] [address] [place] [address], [place] [address] 25 Jul, 2014 [facility] [address] [id number] [address] [place] [address], [place] [address] Jul, 2013 [facility] [address] [id number] [address] [place] [address], [place] [address] 25 Jul, 2013 [facility] [address] [id number] [address] [place] [address], [place] [address] Jul, [facility] [address] [id number] [facility] [place] [address] Jul, [facility] [address] [id number] [address] [place] [address], [place] [address] Jul, [facility] [address] [id number] [address] [place] [address], [place] [address] Jul, [facility] [address] [id number] [address] [place] [address], [place] [address] Jul, [facility] [address] [id number] [address] [place] [address], [place] [address] Jun, [facility] [address] [id number] [address] [place] [address], [place] [address] Jun, [facility] [address] [id number] [address] [place] [address], [place] [address] Jun, [facility] [address] [id number] [address] [place] [address], [place] [address] Jun, [facility] [address] [id number] [address] [place] [address], [place] [address] Jun, [facility] [address] [id number] [address] [place] [address], [place] [address] Jun, [facility] [address] [id number] [address] [place] [address], [place] [address] Jun, [facility] [address] [id number] [address] [place] [address], [place] [address] Jun, [facility] [address] [id number] [address] [place] [address], [place] [address] Jun, [facility] [address] [id number] [address] [place] [address], [place] [address] Jun, [facility] [address] [id number] [address] [place] [address], [place] [address] Jun, [facility] [address] [id number] [address] [place] [address], [place] [address] Jun, [facility] [address] [id number] [address] [place] [address], [place] [address] May, [facility] [address] [id number] [address] [place] [address], [place] [address] May, [facility] [address] [id number] [address] [place] [address], [place] [address] May, [facility] [address] [id number] [address] [place] [address], [place] [address] May, [facility] [address] [id number] [address] [place] [address], [place] [address] May, [facility] [address] [id number] [address] [place] [address], [place] [address] May, [facility] [address] [id number] [address] [place] [address], [place] [address] March, [facility] [address] [id number] [address] [place] [address], [place] [address] March, [facility] [address] [id number] [address] [place] [address], [place] [address] March, [facility] [address] [id number] [address] [place] [address], [place] [address] March, [facility] [address] [id number] [address] [place] [address], [place] [address] March, [facility] [address] [id number] [address] [place] [address], [place] [address] March, [facility] [address] [id number] [address] [place] [address], [place] [address] Feb, [facility] [address] [id number] [address] [place] [address], [place] [address] Feb, [facility] [address] [id number] [address] [place] [address], [place] [address] Feb, [facility] [address] [id number] [address] [place] [address], [place] [address] Feb, [facility] [address] [id number] [address] [place] [address], [place] [address] Jan, [facility] [address] [id number] [address] [place] [address], [place] [address] Jan, [facility] [address] [id number] [address] [place] [address], [place] [address] Jan, [facility] [address] [id number] [address] [place] [address], [place] [address] Jan, [facility] [address] [id number] [address] [place] [address], [place] [address] Jan, [facility] [address] [id number] [address] [place] [address], [place] [address] Jan, [facility] [address] [id number] [address] [place] [address], [place] [address] Jan, [facility] [address] [id number] [address] [place] [address], [place] [address] Jan, [facility] [address] [id number] [address] [place] [address], [place] [address] Jan, [facility] [address] [id number] [address] [place] [address], [place] [address] Jan, [facility] [address] [id number] [address] [place] [address], [place] [address] Jan, [facility] [address] [id number] [address] [place] [address], [place] [address] Jan, [facility] [address] [id number] [address] [place] [address], [place] [address] Dec, [facility] [address] [id number] [address] [place] [address], [place] [address] Dec, [facility] [address] [id number] [address] [place] [id number] Dec, [facility] [address] [id number] [address] [place] [address], [place] [address] Dec, [facility] [address] [id number] [address] [place] [address], [place] [address] Dec, [facility] [address] [id number] [address] [place] [address], [place] [address] Dec, [facility] [address] [id number] [address] [place] [address], [place] [address] Nov, [facility] [address] [id number] [address] [place] [address], [place] [address] Nov, [facility] [address] [id number] [address] [place] [address], [place] [address] Oct, [facility] [address] [id number] [address] [place] [address], [place] [address] Oct, [facility] [address] [id number] [address] [place] [address], [place] [address] Oct, [facility] [address] [id number] [address] [place] [address], [place] [address] Oct, [facility] [address] [id number] [address] [place] [address], [place] [address] Oct, [facility] [address] [id number] [address] [place] [address], [place] [address] Oct, [facility] [address] [id number] [address] [place] [address], [place] [address] Sep, [facility] [address] [id number] [address] [place] [address], [place] [address] Sep, [facility] [address] [id number] [address] [place] [address], [place] [address] Sep, [facility] [address] [id number] [address] [place] [address], [place] [id number] Sep, [facility] [address] [id number] [address] [place] [address], [place] [address] Aug, [facility] [address] [id number] [address] [place] [address], [place] [id number] Aug, [facility] [address] [id number] [address] [place] [address], [place] [id number] Aug, [facility] [address] [id number] [address] [place] [address], [place] [id number] Jul, [facility] [address] [id number] [address] [place] [address], [place] [id number] Jul, [facility] [address] [id number] [address] [place] [address], [place] [id number] Jul, [facility] [address] [id number] [address] [place] [address], [place] [id number] Jun, [facility] [address] [id number] [address] [place] [address], [place] [id number] Jun, [facility] [address] [id number] [address] [place] [address], [place] [id number] Jun, [facility] [address] [id number] [address] [place] [address], [place] [address] Apr, [facility] [address] [id number] [address] [place] [address], [place] [id number] Apr, [facility] [address] [id number] [address] [place] [address], [place] [id number] March, [facility] [address] [id number] [address] [place] [address], [place] [id number] March, [facility] [address] [id number] [address] [place] [address], [place] [id number] March, [facility] [address] [id number] [address] [place] [address], [place] [id number] March, [facility] [address] [id number] [address] [place] [id number] Feb, [facility] [address] [id number] [address] [place] [address], [place] [id number] Jan, [facility] [address] [id number] [address] [place] [address], [place] [id number] 13 Dec, 2012 [facility] [address] [id number] [address] [place] [address], [place] [id number] 08 Dec, 2012 [facility] [address] [id number] [address] [place] [address], [place] [id number] 07 Dec, 2012 [facility] [address] [id number] [address] [place] [address], [place] [id number] Nov, [facility] [address] [id number] [address] [place] [address], [place] [id number] Oct, [facility] [address] [id number] [address] [place] [address], [place] [id number] Oct, [facility] [address] [id number] [address] [place] [address], [place] [id number] Sep, [facility] [address] [id number] [address] [place] [address], [place] [id number] Sep, [facility] [address] [id number] [address] [place] [address], [place] [id number] Sep, [facility] [address] [id number] [address] [place] [address], [place] [id number] Sep, [facility] [address] [id number] [address] [place] [id number] Sep, [facility] [address] [id number] [address] [place] [address], [place] [id number] Sep, [facility] [address] [id number] [address] [place] [address], [place] [id number] Sep, [facility] [address] [id number] [address] [place] [address], [place] [id number] 16 Aug, 2012 [facility] [address] [id number] [address] [place] [address], [place] [id number] 16 Aug, 2012 [facility] [address] [id number] [address] [place] [address], [place] [id number] 10 Aug, 2012 [facility] [address] [id number] [address] [place] [address], [place] [id number] 10 Aug, 2012 [facility] [address] [id number] [address] [place] [address], [place] [id number] 08 Aug, 2012 [facility] [address] [id number] [address] [place] [address], [place] [id number] 08 Aug, 2012 [facility] [address] [id number] [address] [place] [address], [place] [id number] Aug, [facility] [address] [id number] [address] [place] [address], [place] [id number] Aug, [facility] [address] [id number] [address] [place] [address], [place] [id number] Jul, [facility] [address] [id number] [address] [place] [address], [place] [id number] Jul, [facility] [address] [id number] [address] [place] [address], [place] [id number] Jun, [facility] [address] [id number] [address] [place] [address], [place] [address] May, [facility] [address] [id number] [address] [place] [address], [place] [address] Apr, [facility] [address] [id number] [address] [place] [address], [place] [address] Apr, [facility] [address] [id number] [address] [place] [address], [place] [address] Apr, [facility] [address] [id number] [address] [place] [address], [place] [address] March, [facility] [address] [id number] [address] [place] [address], [place] [address] March, [facility] [address] [id number] [facility] [place] [address] March, [facility] [address] [id number] [address] [place] [address], [place] [address] March, [facility] [address] [id number] [address] [place] [address], [place] [address] March, [facility] [address] [id number] [address] [place] [address], [place] [address] March, [facility] [address] [id number] [address] [place] [address], [place] [address] March, [facility] [address] [id number] [address] [place] [address], [place] [address] Jan, [facility] [address] [id number] [address] [place] [address], [place] [id number] Jan, [facility] [address] [id number] [address] [place] [address], [place] [id number] Jan, [facility] [address] [id number] [address] [place] [address], [place] [id number] Jan, [facility] [address] [id number] [address] [place] [address], [place] [address] Jan, [facility] [address] [id number] [address] [place] [address], [place] [id number] Dec, [facility] [address] [id number] [address] [place] [address], [place] [address] Dec, [facility] [address] [id number] [address] [place] [address], [place] [address] Nov, [facility] [address] [id number] [address] [place] [address], [place] [address] Nov, [facility] [address] [id number] [address] [place] [address], [place] [address] Nov, [facility] [address] [id number] [address] [place] [address], [place] [id number] 05 Nov, 2011 [facility] [address] [id number] [address] [place] [address], [place] [id number] 21 Oct, 2011 [facility] [address] [id number] [address] [place] [address], [place] [address] 06 Oct, 2011 [facility] [address] [id number] [address] [place] [address], [place] [id number] 14 Sep, 2011 [facility] [address] [id number] [address] [place] [address], [place] [id number] 10 Sep, 2011 [facility] [address] [id number] [address] [place] [address], [place] [id number] 10 Sep, 2011 [facility] [address] [id number] [address] [place] [address], [place] [address] May, [facility] [address] [id number] [address] [place] [address], [place] [id number] 20 Nov, 2010 [facility] [address] [id number] [address] [place] [address], [place] [id number] 29 Oct, 2010 [facility] [address] [id number] [address] [place] [address], [place] [id number] 14 Oct, 2010 [facility] [address] [id number] [address] [place] [address], [place] [id number] 08 Oct, 2010 [facility] [address] [id number] [address] [place] [address], [place] [id number] 15 Sep, 2010 [facility] [address] [id number] [address] [place] [address], [place] [address] Sep, [facility] [address] [id number] [address] [place] [address], [place] [id number] Aug, [facility] [address] [id number] [address] [place] [address], [place] [address] March, [facility] [address] [id number] [address] [place] [address], [place] [address] Oct, [facility] [address] [id number] [address] [place] [id number] Oct, [facility] [address] [id number] [address] [place] [id number] Oct, [facility] [address] [id number] [address] [place] [id number] Oct, [facility] [address] [id number] [address] [place] [id number] Sep, [facility] [address] [id number] [address] [place] [id number] Sep, [facility] [address] [id number] [address] [place] [id number] Sep, [facility] [address] [id number] [address] [place] [id number] Aug, [facility] [address] [id number] [address] [place] [id number] Aug, [facility] [address] [id number] [address] [place] [id number] Aug, [facility] [address] [id number] [address] [place] [id number] Jan, IMMUNIZATIONS No Known Immunizations SOCIAL HISTORY [...]
--- OUTSIDE RECORDS SUMMARY | 2020-06-13 15:54 | XMS REPORT ---
Author Author Jah Monk Organization [facility] Address [address] [place] [address] Care Team Providers Care Remote Medical Coder Name Role Phone STEVEN Monk Unavailable PROBLEMS Type Condition ICD9-CM Code ONW83-BY Code Onset Dates Condition S tatus SNOMED Code Problem Neuropathy G62.9 Active 042578254 Problem Chronic pain G89.29 Active 2318453 1 Problem Overactive bladder N32.81 Active 2 22352934 Problem Hypothyroid E03.9 Active 27488705 Problem Gastroesophageal reflux disease with esophagitis K 21.0 Active 353385232 Problem Mixed hyperlipidemia E78.2 Active 884859491 Problem Type 2 diabetes mellitus with hyperglycemia E11.65 Active 27942608 Problem Essential (primary) hypertension I10 Active 53178040 Problem Anxiety disorder, unspecified type F41.9 Active 818042193 Problem alf (current) use of insulin Z79.4 Active 518642242 Problem 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 Active 469917919 Problem Ulcer of foot, limited to breakdown of skin, uns pecified laterality L97.501 Active 93941118 Problem Irritable bowel syndrome with diarrhea K58.0 Active 800012748 Problem Gastroparesis K31.84 Active 639599 006 Problem 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 Active 186024578 Problem Chronic obstructive pulmonary disease, unspecified COPD ty pe J44.9 Active 01505937 Problem Major depressive disorder, recurrent, in full remission F33.42 Active 39350807 ALLERGIES No Information ENCOUNTERS Encounter Location Date Diagnosis [address] [id number] [place] [address] 03 Apr, 2020 Chronic pain G89.29 [facility] [address] [facility] [id number] [address] [place] [address] March, Ulcer of foot, limited to br eakdown of skin, unspecified laterality L97.501 [facility] [address] [place] [id number] [place] [address] March, Chronic pain G89.29 [facility] [address] [place] [id number] [place] [address] Feb, Chronic pain G89.29 [place] [address] [place] [id number] [place] [address] 13 Jan, 2020 Type 2 diabetes mellitus wit h hyperglycemia E11.65 ; termite treater helper (current) use of insulin Z79.4 and Hyperkalemia E87.5 [place] [address] [address] 10 Jan, 2020 Type 2 diabetes mellitus wit h diabetic autonomic (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 ; Hypothyroid E03.9 ; Dyshydrosis L30.1 and Irritable bowel syndrome with diarrhea K58.0 [place] [address] [place] [id number] [place] [address] 05 Jan, 2020 Chronic pain G89.29 [place] [address] [place] [id number] [place] [address] 10 Dec, 2019 Chronic pain G89.29 [place] [address] [place] [id number] [place] [address] 07 Dec, 2019 [place] [id number] [place] [address] Dec, [facility] [address] [place] [id number] [place] [address] Nov, Chronic pain G89.29 [place] [address] [place] [id number] [place] [address] Oct, Chronic pain G89.29 [place] [address] [place] [id number] [place] [address] Sep, Chronic pain G89.29 [place] [address] [place] [id number] [place] [address] Sep, Type 2 diabetes mellitus wit h diabetic autonomic (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 ; Irritable bowel syndrome with diarrhea K58.0 ; Essential (primary) hypertension I10 and Encounter for immunization Z23 [facility] [address] [id number] [address] [place] [address] Aug, Chronic pain G89.29 [facility] [address] [facility] [id number] [address] [place] [address] Aug, [facility] [address] [facility] [id number] [address] [place] [address] Jul, Chronic pain G89.29 [facility] [address] [facility] [id number] [address] [place] [address] Jun, Other chronic pain G89.29 [facility] [address] [facility] [id number] [address] [place] [address] Jun, [facility] [address] [facility] [id number] [address] [place] [address] Jun, Chronic pain G89.29 [facility] [address] [facility] [id number] [address] [place] [address] Jun, Neuropathy G62.9 [facility] [address] [facility] [id number] [address] [place] [address] Jun, Encounter for Medicare annua l wellness exam Z00.00 ; Type 2 diabetes mellitus with hyperglycemia E11.65 ; Mixed hyperlipidemia E78.2 ; Hypothyroid E03.9 ; Gastroesophageal reflux disease with esophagitis K21.0 ; Essential (primary) hypertension I10 ; Major depressive disorder, recurrent, in full remission F33.42 ; Chronic obstructive pulmonary disease, unspecified COPD type J44.9 ; Neuropathy G62.9 and Encounter for immunization Z23 [facility] [address] [facility] [id number] [address] [place] [address] Jun, Irritable bowel syndrome wit h diarrhea K58.0 [facility] [address] [facility] [id number] [address] [place] [address] May, Chronic pain G89.29 [facility] [address] [facility] [id number] [address] [place] [address] May, Type 2 diabetes mellitus wit h hyperglycemia E11.65 and Neuropathy G62.9 [facility] [address] [facility] [id number] [address] [place] [address] May, Chronic pain G89.29 [facility] [address] [facility] [id number] [address] [place] [address] Apr, Poison maryam dermatitis L23.7 [facility] [address] [facility] [id number] [address] [place] [address] Apr, Chronic pain G89.29 [facility] [address] [facility] [id number] [address] [place] [address] March, Type 2 diabetes mellitus wit h hyperglycemia E11.65 [facility] [address] [facility] [id number] [address] [place] [address] March, Chronic pain G89.29 [facility] [address] [facility] [id number] [address] [place] [address] March, [id number] [place] [address] Feb, [facility] [address] [facility] [id number] [address] [place] [address] Feb, Other chronic pain G89.29 an d Chronic pain G89.29 [facility] [address] [facility] [id number] [address] [place] [address] Jan, Mixed hyperlipidemia E78.2 [facility] [address] [facility] [id number] [address] [place] [address] Jan, Chronic pain G89.29 [facility] [address] [facility] [id number] [address] [place] [address] Jan, Type 2 diabetes mellitus wit h hyperglycemia E11.65 ; Mixed hyperlipidemia E78.2 ; 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 ; Acquired hypothyroidism E03.9 and Essential (primary) hypertension I10 [facility] [address] [facility] [id number] [address] [place] [address] 11 Dec, 2018 Chronic pain G89.29 [facility] [address] [facility] [id number] [address] [place] [address] Nov, Chronic pain G89.29 [facility] [address] [place] [id number] [place] [address] Nov, [facility] [address] [facility] [id number] [address] [place] [address] Oct, Chronic pain G89.29 [facility] [address] [place] [id number] [place] [address] Oct, [facility] [address] [place] [id number] [place] [address] Sep, [facility] [address] [place] [id number] [place] [address] Sep, Type 2 diabetes mellitus wit h hyperglycemia E11.65 [facility] [address] [facility] [id number] [address] [place] [address] 16 Sep, 2018 Chronic pain G89.29 [facility] [address] [facility] [id number] [address] [place] [address] Sep, [facility] [address] [facility] [id number] [address] [place] [address] Sep, Type 2 diabetes mellitus wit h hyperglycemia E11.65 ; Irritable bowel syndrome with diarrhea K58.0 ; Gastroparesis K31.84 ; 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 and Dermatitis L30.9 [facility] [address] [facility] [id number] [address] [place] [address] Aug, Chronic pain G89.29 [facility] [address] [facility] [id number] [address] [place] [address] Jul, Chronic pain G89.29 [facility] [address] [facility] [id number] [address] [place] [address] Jun, Type 2 diabetes mellitus wit h hyperglycemia E11.65 ; Neuropathy G62.9 ; Recurrent major depressive disorder, in partial remission F33.41 ; Chronic pain G89.29 and Hypertriglyceridemia E78.1 [facility] [address] [facility] [id number] [address] [place] [address] Jun, Hypothyroid E03.9 [facility] [address] [facility] [id number] [address] [place] [address] Jun, Major depressive disorder, r ecurrent episode, moderate F33.1 and Anxiety disorder, unspecified type F41.9 [place] [address] [facility] [id number] [address] [place] [address] Jun, [place] [address] [facility] [id number] [address] [place] [address] Jun, Type 2 diabetes mellitus wit h hyperglycemia E11.65 ; alf 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 Z79.4 ; Recurrent major depressive disorder, in partial remission F33.41 ; Hypothyroid E03.9 ; Candidal dermatitis B37.2 and Weakness generalized R53.1 [place] [address] [facility] [id number] [address] [place] [address] May, [facility] [address] [facility] [id number] [address] [place] [address] May, [facility] [address] [facility] [id number] [address] [place] [address] May, [facility] [address] [facility] [id number] [address] [place] [address] May, Generalized abdominal pain R 10.84 and Candidal dermatitis B37.2 [facility] [address] [facility] [id number] [address] [place] [address] May, [facility] [address] [facility] [id number] [address] [place] [address] May, [place] [address] [id number] [address] [place] [address] May, Nodular radiologic density R 93.8 ; Weight loss, unintentional R63.4 and Pulmonary emphysema, unspecified emphysema type J43.9 [place] [address] [id number] [address] [place] [address] May, Chronic pain G89.29 [place] [address] [id number] [address] [place] [address] 09 May, 2018 Syncope and collapse R55 ; C hronic fatigue R53.[address] lung screening R91.8 [place] [address] [id number] [address] [place] [address] May, [place] [address] [id number] [address] [place] [address] Apr, Chronic fatigue R53.82 ; Abn ormal chest CT R93.8 ; Elevated erythrocyte sedimentation rate R70.0 ; Hypothyroid E03.9 and Recurrent major depressive disorder, in partial remission F33.41 [place] [address] [id number] [address] [place] [address] Apr, Hypothyroid E03.9 [place] [address] [id number] [address] [place] [address] Apr, Depression F32.9 [place] [address] [id number] [address] [place] [address] Apr, [place] [address] [id number] [address] [place] [address] March, [place] [address] [id number] [address] [place] [address] March, Hypothyroid E03.9 [place] [address] [id number] [address] [place] [address] March, Diabetes mellitus E11.9 and Hypothyroid E03.9 [place] [address] [id number] [address] [place] [address] March, Diabetes mellitus E11.9 [place] [address] [facility] [id number] [address] [place] [address] March, Hypothyroid E03.9 and Elevat ed liver enzymes R74.8 [place] [address] [facility] [id number] [address] [place] [address] March, Type 2 diabetes mellitus wit h [...] major depressive disorder, in partial remission F33.41 [place] [address] [place] [id number] [place] [address] Feb, Chronic pain G89.29 [place] [address] [place] [id number] [place] [address] Feb, Type 2 diabetes mellitus wit h hyperglycemia E11.65 and Skin lesion of scalp L98.9 [place] [address] [place] [id number] [place] [address] Feb, [place] [address] [place] [id number] [place] [address] Jan, Type 2 diabetes mellitus wit h [...] and Irritable bowel syndrome with diarrhea K58.0 [place] [address] [place] [id number] [place] [address] Jan, [place] [address] [place] [id number] [place] [address] Jan, Controlled substance agreeme nt signed Z79.899 [place] [address] [place] [address] 08 Dec, 2017 Type 2 diabetes mellitus wit h hyperglycemia E11.65 ; Controlled substance agreement signed Z79.899 ; 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 ; Essential (primary) hypertension I10 ; Hypothyroid E03.9 ; Neuropathy G62.9 ; Depression F32.9 ; Mixed hyperlipidemia E78.2 ; Irritable bowel syndrome with diarrhea K58.0 ; Gastroesophageal reflux disease with esophagitis K21.0 ; Thrombocytosis D47.3 ; Current non-adherence to medical treatment Z91.19 and Overweight (BMI 25.0-29.9) E66.3 [place] [address] [place] [id number] [address] [place] [address] 02 Dec, 2017 Controlled substance agreeme nt signed Z79.899 [place] [address] [place] [address] Nov, Type 2 diabetes mellitus wit h hyperglycemia E11.65 and Current non- adherence to medical treatment Z91.19 [place] [address] [place] [address] Nov, [place] [address] [place] [id number] [place] [address] Nov, Chronic pain G89.29 [place] [address] [place] [id number] [place] [address] Nov, [place] [address] [place] [id number] [place] [address] Nov, Hypothyroid E03.9 [place] [address] [place] [id number] [place] [address] Nov, Hypothyroid E03.9 [place] [address] [place] [id number] [place] [address] Nov, Pulmonary emphysema, unspeci fied emphysema type J43.9 and Irritable bowel syndrome with diarrhea K58.0 [place] [address] [address] Oct, [place] [address] [place] [id number] [place] [address] Oct, [place] [address] [address] Oct, [place] [address] [address] Oct, [place] [address] [address] Oct, Chronic pain G89.29 [place] [address] [address] Oct, Diabetes mellitus E11.9 ; De pression F32.9 ; Mixed hyperlipidemia E78.2 ; Hypotension, unspecified hypotension type I95.9 ; Pulmonary emphysema, unspecified emphysema type J43.9 and Weight loss, unintentional R63.4 [place] [address] [address] Oct, Chronic pain G89.29 [place] [address] [address] Sep, Chronic pain G89.29 [place] [address] [address] Sep, Hypothyroid E03.9 and Diabet es mellitus E11.9 [place] [address] [address] Aug, Type 2 diabetes mellitus wit h hyperglycemia E11.65 ; alf 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 Z79.4 ; Essential (primary) hypertension I10 ; Hypothyroid E03.9 ; Neuropathy G62.9 ; Chronic pain G89.29 ; Mixed hy perlipidemia E78.2 and Encounter for immunization Z23 [place] [address] [facility] [id number] [address] [place] [address] Aug, Chronic pain G89.29 [facility] [address] [facility] [id number] [address] [place] [address] Aug, Overactive bladder N32.81 ; Diabetes mellitus E11.9 and Chronic pain G89.29 [facility] [address] [facility] [id number] [address] [place] [address] Jul, [facility] [address] [facility] [id number] [address] [place] [address] Jun, [facility] [address] [facility] [id number] [address] [place] [address] Jun, [facility] [address] [place] [id number] [place] [address] Jun, Hypothyroid E03.9 [facility] [address] [facility] [id number] [address] [place] [address] Jun, Diabetes mellitus E11.9 ; Hy pothyroid E03.9 ; Neuropathy G62.9 ; Chronic pain G89.29 and Neck mass R22.1 [facility] [address] [place] [id number] [place] [address] Apr, [facility] [address] [place] [id number] [place] [address] Apr, Acute cystitis without hemat uria N30.00 [facility] [address] [facility] [id number] [address] [place] [address] March, [facility] [address] [facility] [id number] [address] [place] [address] March, [facility] [address] [place] [id number] [place] [address] March, Near syncope R55 [facility] [address] [facility] [id number] [address] [place] [address] Feb, [facility] [address] [place] [id number] [place] [address] Feb, Chronic pain G89.29 [facility] [address] [facility] [id number] [address] [place] [address] Feb, [facility] [address] [facility] [id number] [address] [place] [address] Feb, [facility] [address] [facility] [id number] [address] [place] [address] Jan, Chronic pain G89.29 [facility] [address] [facility] [id number] [address] [place] [address] Jan, [facility] [address] [place] [id number] [address] [place] [address] Jan, [facility] [address] [place] [id number] [address] [place] [address] Jan, Diabetes mellitus E11.9 ; Hy pothyroid E03.9 ; GERD (gastroesophageal reflux disease) K21.9 ; Insomnia G47.00 ; Functional 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 ; Neuropathy G62.9 ; Depression F32.9 ; Chronic pain G89.29 ; Irritable bowel syndrome with diarrhea K58.0 ; Overactive bladder N32.81 ; Mixed hyperlipidemia E78.2 and Bronchitis J40 [facility] [address] [place] [address] Dec, [facility] [address] [facility] [id number] [address] [place] [address] Dec, [facility] [address] [facility] [id number] [address] [place] [address] Dec, [facility] [address] [place] [id number] [place] [address] Dec, [facility] [address] [facility] [id number] [address] [place] [address] Dec, Chronic pain G89.29 [facility] [address] [place] [id number] [place] [address] Dec, [facility] [address] [place] [id number] [place] [address] Dec, [facility] [address] [place] [id number] [place] [address] Dec, Type 2 diabetes mellitus wit h foot ulcer E11.621 [facility] [address] [address] 17 Dec, 2016 Type 2 diabetes mellitus wit h foot ulcer E11.621 [place] [address] [place] [id number] [place] [address] 14 Dec, 2016 HTN (hypertension) I10 ; Dep ression F32.9 ; Type 2 diabetes mellitus with foot ulcer E11.621 ; Functional 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 ; Irritable bowel syndrome with diarrhea K58.0 ; Chronic pain G89.29 ; Insomnia G47.00 ; Overactive bladder N32.81 ; Mixed hyperlipidemia E78.2 ; Gastroesophageal reflux disease with esophagitis K21.0 and Acquired hypothyroidism E03.9 [place] [address] [place] [id number] [address] [place] [address] Nov, [place] [address] [address] Oct, [place] [address] [place] [id number] [address] [place] [address] Oct, [place] [address] [address] Oct, [place] [address] [place] [id number] [place] [address] Sep, Functional 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 ; HTN (hypertension) I10 ; Diabetes mellitus E11.9 ; Depression F32.9 ; Overactive bladder N32.81 ; Mixed hyperlipidemia E78.2 ; Gastroesophageal reflux disease without esophagitis K21.9 ; Chronic pain G89.29 ; Insomnia G47.00 and Acquired hypothyroidism E03.9 [place] [address] [address] Sep, [place] [address] [address] 11 Aug, 2016 Encounter for immunization Z 23 [facility] [address] [address] 06 Aug, 2016 [place] [address] [address] 09 Jul, 2016 [place] [address] [address] Jun, Type 2 diabetes mellitus wit hout complications E11.9 ; HTN (hypertension) I10 ; Hypothyroid E03.9 ; Neuropathy G62.9 ; Depression F32.9 ; Chronic pain G89.29 ; GERD (gastroesophageal reflux disease) K21.9 ; Insomnia G47.00 ; Overactive bladder N32.81 ; Mixed hyperlipidemia E78.2 ; Diarrhea of infectious origin A09 and Environmental allergies Z91.09 [place] [address] [address] Apr, [place] [address] [address] March, Hypothyroidism, unspecified E03.9 and Mixed hyperlipidemia E78.2 [place] [address] [address] March, Diabetes mellitus E11.9 ; HT N (hypertension) I10 ; Hypothyroid E03.9 ; Depression F32.9 ; Overactive bladder N32.81 ; Other chronic pain G89.29 ; Lumbago with sciatica, unspecified side M54.40 ; Environmental allergies Z91.09 and Gastroesophageal reflux disease, esophagitis presence not specified K21.9 [place] [address] [address] March, [place] [address] [address] Jan, HTN (hypertension) I10 ; Hyp othyroid E03.9 ; Neuropathy G62.9 ; Diabetes mellitus E11.9 ; Chronic pain G89.29 ; GERD (gastroesophageal reflux disease) K21.9 ; Overactive bladder N32.81 and Depression F32.9 [place] [address] [address] [place] [id number] [place] [address] 12 Dec, 2015 Ear pain, left H92.02 ; HTN (hypertension) I10 ; Hypothyroid E03.9 ; Neuropathy G62.9 ; Diabetes mellitus E11.9 ; Depression F32.9 ; GERD (gastroesophageal reflux disease) K21.9 ; Insomnia G47.00 and Overactive bladder N32.81 [place] [address] [address] Nov, Overactive bladder N32.81 an d Chronic pain G89.29 [place] [address] [address] Nov, Kidney failure N19 [place] [address] [address] Nov, [place] [address] [address] Nov, [place] [address] [address] Nov, Diabetes mellitus E11.9 ; De pression F32.9 ; Chronic pain G89.29 ; GERD (gastroesophageal reflux disease) K21.9 ; Insomnia G47.00 ; HTN (hypertension) I10 ; Hypothyroid E03.9 ; COPD (chronic obstructive pulmonary disease) J44.9 ; Bladder incontinence R32 and Incontinence R32 [place] [address] [address] Sep, Type 2 diabetes mellitus wit h foot ulcer E11.621 and Chromosomal abnormality, 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 [place] [address] [place] [id number] [address] [place] [address] Sep, [address] [address] Aug, [address] [address] Aug, [address] [address] Aug, HTN (hypertension) I10 ; Enc ounter for immunization Z23 ; Hypothyroid E03.9 ; Neuropathy G62.9 ; Diabetes mellitus E11.9 ; Depression F32.9 ; Chronic pain G89.29 ; GERD (gastroesophageal reflux disease) K21.9 ; Insomnia G47.00 and COPD (chronic obstructive pulmonary disease) J44.[address] [address] Jun, [address] [address] Jun, [address] [address] May, Essential hypertension, ivis gn 401.1 ; Unspecified hypothyroidism 244.9 ; Insomnia, unspecified 780.52 ; Shortness of breath 786.05 ; Depression 311 ; COPD (chronic obstructive pulmonary disease) 496 ; GERD (gastroesophageal reflux disease) 530.81 and Diabetes 1.5, 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 [address] May, [address] [address] May, [address] [address] May, Shortness of breath 786.05 ; Essential hypertension, benign 401.1 ; Diabetes mellitus 250.00 ; Hyperlipidemia 272.4 ; Hypothyroid 244.9 ; Insomnia 780.52 and Cough 786.[address] [address] Apr, [facility] [address] [id number] [address] [place] [address] March, Shortness of breath 786.05 ; Nausea with vomiting 787.01 ; Essential hypertension, benign 401.1 ; Diabetes mellitus 250.00 ; Hyperlipidemia 272.4 and Hypothyroid 244.9 [facility] [address] [id number] [address] [place] [address] Feb, [facility] [address] [id number] [address] [place] [address] Feb, [facility] [address] [id number] [address] [place] [address] Jan, [facility] [address] [id number] [address] [place] [address] Jan, [facility] [address] [id number] [address] [place] [address] Jan, [facility] [address] [id number] [address] [place] [address] Jan, [facility] [address] [id number] [address] [place] [address] Jan, [facility] [address] [id number] [address] [place] [address] Jan, [facility] [address] [id number] [address] [place] [address] Jan, [facility] [address] [id number] [address] [place] [address] Jan, [facility] [address] [id number] [address] [place] [address] Jan, [facility] [address] [id number] [address] [place] [address] Jan, [facility] [address] [id number] [address] [place] [address] Dec, [facility] [address] [id number] [address] [place] [address], [place] [address] Dec, 2014 [facility] [address] [id number] [address] [place] [address], [place] [address] Dec, 2014 [facility] [address] [id number] [address] [place] [address], [place] [address] Dec, 2014 [facility] [address] [id number] [address] [place] [address], [place] [address] Dec, 2014 [facility] [address] [id number] [address] [place] [address], [place] [address] Dec, 2014 [facility] [address] [id number] [address] [place] [address], [place] [address] Dec, 2014 [facility] [address] [id number] [address] [place] [address], [place] [address] Dec, 2014 [facility] [address] [id number] [address] [place] [address], [place] [address] Dec, 2014 [facility] [address] [id number] [address] [place] [address], [place] [address] Dec, 2014 [facility] [address] [id number] [address] [place] [address], [place] [address] Oct, [facility] [address] [id number] [address] [place] [address], [place] [address] Oct, [facility] [address] [id number] [address] [place] [address], [place] [address] Oct, [facility] [address] [id number] [address] [place] [address], [place] [address] Oct, [facility] [address] [id number] [address] [place] [address], [place] [address] Oct, [facility] [address] [id number] [address] [place] [address], [place] [address] Oct, [facility] [address] [id number] [address] [place] [address], [place] [address] 05 Oct, 2014 [facility] [address] [id number] [address] [place] [address], [place] [address] 05 Oct, 2014 [facility] [address] [id number] [address] [place] [address], [place] [address] Oct, [facility] [address] [id number] [address] [place] [address], [place] [address] Oct, [facility] [address] [id number] [address] [place] [address], [place] [address] Oct, [facility] [address] [id number] [address] [place] [address], [place] [address] Oct, [facility] [address] [id number] [address] [place] [address], [place] [address] Oct, [facility] [address] [id number] [address] [place] [address], [place] [address] Oct, [facility] [address] [id number] [address] [place] [address], [place] [address] Sep, [facility] [address] [id number] [address] [place] [address], [place] [address] Sep, [facility] [address] [id number] [address] [place] [address], [place] [address] Sep, [facility] [address] [id number] [address] [place] [address], [place] [address] Sep, [facility] [address] [id number] [address] [place] [address], [place] [address] Sep, [facility] [address] [id number] [address] [place] [address], [place] [address] Sep, [facility] [address] [id number] [address] [place] [address], [place] [address] Sep, [facility] [address] [id number] [address] [place] [address], [place] [address] Sep, [facility] [address] [id number] [address] [place] [address], [place] [address] Sep, [facility] [address] [id number] [address] [place] [address], [place] [address] Aug, [facility] [address] [id number] [address] [place] [address], [place] [address] Aug, [facility] [address] [id number] [address] [place] [address], [place] [address] Aug, [facility] [address] [id number] [address] [place] [address], [place] [address] 17 Aug, 2014 [facility] [address] [id number] [address] [place] [address], [place] [address] 16 Aug, 2014 [facility] [address] [id number] [address] [place] [address], [place] [address] Aug, [facility] [address] [id number] [address] [place] [address], [place] [address] Aug, [facility] [address] [id number] [address] [place] [address], [place] [address] Aug, [facility] [address] [id number] [address] [place] [address], [place] [address] Aug, [facility] [address] [id number] [address] [place] [address], [place] [address] 29 Jul, 2014 [facility] [address] [id number] [address] [place] [address], [place] [address] 29 Jul, 2013 [facility] [address] [id number] [address] [place] [address], [place] [address] 25 Jul, 2013 [facility] [address] [id number] [address] [place] [address], [place] [address] Jul, 2013 [facility] [address] [id number] [address] [place] [address], [place] [address] Jul, 2013 [facility] [address] [id number] [address] [place] [address], [place] [address] Jul, [facility] [address] [id number] [facility] [place] [address] Jul, [facility] [address] [id number] [facility] [place] [place] [address] Jul, [facility] [address] [id number] [address] [place] [address], [place] [address] Jul, [facility] [address] [id number] [address] [place] [address], [place] [address] Jul, [facility] [address] [id number] [address] [place] [address], [place] [address] Jun, [facility] [address] [id number] [address] [place] [address], [place] [address] Jun, [facility] [address] [id number] [address] [place] [address], [place] [address] Jun, [facility] [address] [id number] [address] [place] [address], [place] [address] Jun, [facility] [address] [id number] [address] [place] [address], [place] [address] Jun, [facility] [address] [id number] [address] [place] [address], [place] [address] Jun, [facility] [address] [id number] [address] [place] [address], [place] [address] Jun, [facility] [address] [id number] [address] [place] [address], [place] [address] Jun, [facility] [address] [id number] [address] [place] [address], [place] [address] Jun, [facility] [address] [id number] [address] [place] [address], [place] [address] Jun, [facility] [address] [id number] [address] [place] [address], [place] [address] Jun, [facility] [address] [id number] [address] [place] [address], [place] [address] Jun, [facility] [address] [id number] [address] [place] [address], [place] [address] May, [facility] [address] [id number] [address] [place] [address], [place] [address] May, [facility] [address] [id number] [address] [place] [address], [place] [address] May, [facility] [address] [id number] [address] [place] [address], [place] [address] May, [facility] [address] [id number] [address] [place] [address], [place] [address] May, [facility] [address] [id number] [address] [place] [address], [place] [address] May, [facility] [address] [id number] [address] [place] [address], [place] [address] March, [facility] [address] [id number] [address] [place] [address], [place] [address] March, [facility] [address] [id number] [address] [place] [address], [place] [address] March, [facility] [address] [id number] [address] [place] [address], [place] [address] March, [facility] [address] [id number] [address] [place] [address], [place] [address] March, [facility] [address] [id number] [address] [place] [address], [place] [address] March, [facility] [address] [id number] [address] [place] [address], [place] [address] Feb, [facility] [address] [id number] [address] [place] [address], [place] [address] Feb, [facility] [address] [id number] [address] [place] [address], [place] [address] Feb, [facility] [address] [id number] [facility] [place] [address] Feb, [facility] [address] [id number] [facility] [place] [address] Jan, [facility] [address] [id number] [facility] [place] [address] Jan, [facility] [address] [id number] [address] [place] [address], [place] [address] Jan, [facility] [address] [id number] [address] [place] [address], [place] [address] Jan, [facility] [address] [id number] [address] [place] [address], [place] [address] Jan, [facility] [address] [id number] [address] [place] [address], [place] [address] Jan, [facility] [address] [id number] [address] [place] [address], [place] [address] Jan, [facility] [address] [id number] [address] [place] [address], [place] [address] Jan, [facility] [address] [id number] [address] [place] [address], [place] [address] Jan, [facility] [address] [id number] [address] [place] [address], [place] [address] Jan, [facility] [address] [id number] [address] [place] [address], [place] [address] Jan, [facility] [address] [id number] [address] [place] [address], [place] [address] Jan, [facility] [address] [id number] [address] [place] [address], [place] [address] Dec, [facility] [address] [id number] [address] [place] [address], [place] [address] Dec, [facility] [address] [id number] [address] [place] [address], [place] [address] Dec, [facility] [address] [id number] [address] [place] [address], [place] [address] Dec, [facility] [address] [id number] [address] [place] [address], [place] [address] Dec, [facility] [address] [id number] [address] [place] [address], [place] [address] Dec, [facility] [address] [id number] [address] [place] [address], [place] [address] Nov, [facility] [address] [id number] [address] [place] [address], [place] [address] Nov, [facility] [address] [id number] [address] [place] [address], [place] [address] Oct, [facility] [address] [id number] [address] [place] [address], [place] [address] Oct, [facility] [address] [id number] [address] [place] [address], [place] [address] Oct, [facility] [address] [id number] [address] [place] [address], [place] [address] Oct, [facility] [address] [id number] [address] [place] [address], [place] [address] Oct, [facility] [address] [id number] [address] [place] [address], [place] [address] Oct, [facility] [address] [id number] [address] [place] [address] Sep, [facility] [address] [id number] [address] [place] [address], [place] [address] Sep, [facility] [address] [id number] [address] [place] [address], [place] [address] Sep, [facility] [address] [id number] [address] [place] [address], [place] [address] Sep, [facility] [address] [id number] [address] [place] [address], [place] [address] Aug, [facility] [address] [id number] [address] [place] [address], [place] [address] Aug, [facility] [address] [id number] [address] [place] [address], [place] [address] Aug, [facility] [address] [id number] [address] [place] [address], [place] [address] 17 Jul, 2013 [facility] [address] [id number] [address] [place] [address], [place] [address] 14 Jul, 2013 [facility] [address] [id number] [address] [place] [address], [place] [address] Jul, [facility] [address] [id number] [address] [place] [address], [place] [address] Jun, [facility] [address] [id number] [address] [place] [address], [place] [address] Jun, [facility] [address] [id number] [address] [place] [address], [place] [address] Jun, [facility] [address] [id number] [address] [place] [address], [place] [address] Apr, [facility] [address] [id number] [address] [place] [address], [place] [address] Apr, [facility] [address] [id number] [address] [place] [address], [place] [address] March, [facility] [address] [id number] [address] [place] [address], [place] [address] March, [facility] [address] [id number] [address] [place] [address], [place] [address] March, [facility] [address] [id number] [address] [place] [address], [place] [address] March, [facility] [address] [id number] [address] [place] [address] [address] Feb, [facility] [address] [id number] [address] [place] [address], [place] [address] Jan, [facility] [address] [id number] [address] [place] [address], [place] [address] 13 Dec, 2012 [facility] [address] [id number] [address] [place] [address], [place] [address] 08 Dec, 2012 [facility] [address] [id number] [address] [place] [address], [place] [address] 07 Dec, 2012 [facility] [address] [id number] [address] [place] [address], [place] [address] Nov, [facility] [address] [id number] [address] [place] [address], [place] [address] 13 Oct, 2012 [facility] [address] [id number] [address] [place] [address], [place] [address] Oct, [facility] [address] [id number] [address] [place] [address], [place] [address] Sep, [facility] [address] [id number] [address] [place] [address], [place] [address] Sep, [facility] [address] [id number] [address] [place] [address], [place] [address] Sep, [facility] [address] [id number] [address] [place] [address], [place] [address] Sep, [facility] [address] [id number] [address] [place] [address], [place] [address] Sep, [facility] [address] [id number] [address] [place] [address], [place] [address] Sep, [facility] [address] [id number] [address] [place] [address], [place] [address] Sep, [facility] [address] [id number] [address] [place] [address], [place] [address] 16 Aug, 2012 [facility] [address] [id number] [address] [place] [address], [place] [address] 16 Aug, 2012 [facility] [address] [id number] [address] [place] [address], [place] [address] 10 Aug, 2012 [facility] [address] [id number] [address] [place] [address], [place] [address] 10 Aug, 2012 [facility] [address] [id number] [address] [place] [address], [place] [address] 08 Aug, 2012 [facility] [address] [id number] [address] [place] [address], [place] [address] 08 Aug, 2012 [facility] [address] [id number] [address] [place] [address], [place] [address] Aug, [facility] [address] [id number] [address] [place] [address], [place] [address] Aug, [facility] [address] [id number] [address] [place] [address], [place] [address] Jul, [facility] [address] [id number] [address] [place] [address], [place] [address] Jul, [facility] [address] [id number] [address] [place] [address], [place] [address] Jun, [facility] [address] [id number] [address] [place] [address], [place] [address] May, [facility] [address] [id number] [address] [place] [address], [place] [address] Apr, [facility] [address] [id number] [address] [place] [address], [place] [address] Apr, [facility] [address] [id number] [address] [place] [address], [place] [address] Apr, [facility] [address] [id number] [address] [place] [address], [place] [address] March, [facility] [address] [id number] [address] [place] [address], [place] [address] March, [facility] [address] [id number] [address] [place] [address], [place] [address] March, [facility] [address] [id number] [address] [place] [address], [place] [address] March, [facility] [address] [id number] [address] [place] [address], [place] [address] March, [facility] [address] [id number] [address] [place] [address], [place] [id number] March, [facility] [address] [id number] [address] [place] [address], [place] [address] March, [facility] [address] [id number] [address] [place] [address], [place] [address] Jan, [facility] [address] [id number] [address] [place] [address], [place] [address] Jan, [facility] [address] [id number] [address] [place] [address], [place] [address] Jan, [facility] [address] [id number] [address] [place] [address], [place] [address] Jan, [facility] [address] [id number] [address] [place] [address], [place] [address] Jan, [facility] [address] [id number] [address] [place] [address], [place] [address] Dec, [facility] [address] [id number] [address] [place] [address], [place] [address] Dec, [facility] [address] [id number] [address] [place] [address], [place] [address] Nov, [facility] [address] [id number] [address] [place] [address], [place] [address] Nov, [facility] [address] [id number] [address] [place] [address], [place] [address] Nov, [facility] [address] [id number] [address] [place] [address], [place] [address] 05 Nov, 2011 [facility] [address] [id number] [address] [place] [address], [place] [address] 21 Oct, 2011 [facility] [address] [id number] [address] [place] [address], [place] [id number] 06 Oct, 2011 [facility] [address] [id number] [address] [place] [address], [place] [address] 14 Sep, 2011 [facility] [address] [id number] [address] [place] [address], [place] [address] 10 Sep, 2011 [facility] [address] [id number] [address] [place] [address], [place] [id number] 10 Sep, 2011 [facility] [address] [id number] [address] [place] [address], [place] [address] May, [facility] [address] [id number] [address] [place] [address], [place] [address] Nov, [facility] [address] [id number] [address] [place] [address], [place] [address] 29 Oct, 2010 [facility] [address] [id number] [address] [place] [address], [place] [id number] 14 Oct, 2010 [facility] [address] [id number] [address] [place] [address], [place] [address] Oct, [facility] [address] [id number] [address] [place] [address], [place] [address] 15 Sep, 2010 [facility] [address] [id number] [address] [place] [address], [place] [id number] Sep, [facility] [address] [id number] [address] [place] [address], [place] [id number] Aug, [facility] [address] [id number] [address] [place] [address], [place] [id number] March, [facility] [address] [id number] [address] [place] [address], [place] [id number] Oct, [facility] [address] [id number] [address] [place] [id number] Oct, [facility] [address] [id number] [address] [place] [phone] Oct, [facility] [address] [id number] [address] [place] [id number] Oct, [facility] [address] [id number] [address] [place] [id number] Sep, [facility] [address] [id number] [address] [place] [phone] Sep, [facility] [address] [id number] [address] [place] [phone] Sep, [facility] [address] [id number] [address] [place] [phone] Aug, [facility] [address] [id number] [address] [place] [id number] Aug, [facility] [address] [id number] [address] [place] [id number] Aug, [facility] [address] [id number] [address] [place] [phone] Jan, IMMUNIZATIONS No Known Immunizations SOCIAL HISTORY Never Assessed REASON FOR VISIT PLAN OF CARE VITAL SIGNS Height 69 in 2013-10-23 Weight 234 lbs 2013-10-23 Temperature 97.4 degrees Fahrenheit 2013-10-23 Heart Rate 74 bpm 2013-10-23 Respiratory Rate 20 2013-10-23 Blood pressure systolic 100 mmHg 2013-10-23 Blood pressure diastolic 70 mmHg 2013-10-23 MEDICATIONS Unknown Medications RESULTS No Results PROCEDURES Procedure Date Ordered Result Body Site COMPLETE CBC W/AUTO DIFF WBC Oct 23, 2013 ASSAY OF LIPASE Oct 23, 2013 COMPREHEN METABOLIC PANEL Oct 23, 2013 URINALYSIS, AUTO, W/O SCOPE Oct 23, 2013 VENIPUNCT, ROUTINE* Oct 23, 2013 INSTRUCTIONS MEDICATIONS ADMINISTERED No Known Medications MEDICAL [...]
--- OUTSIDE RECORDS SUMMARY | 2020-06-13 15:54 | XMS REPORT ---
Author Author Jah Durant Doctor Organization [facility] Address Unknown Phone Unavailable Care Team Providers Care Thread Twister Name Role Phone Migration, Doctor Unavailable Unavailable PROBLEMS Type Condition ICD9-CM Code OSD41-ZO Code Onset Dates Condition S tatus SNOMED Code Problem Neuropathy G62.9 Active 323436854 Problem Chronic pain G89.29 Active 2015408 1 Problem Overactive bladder N32.81 Active 2 62072779 Problem Hypothyroid E03.9 Active 47003637 Problem Gastroesophageal reflux disease with esophagitis K 21.0 Active 814571762 Problem Mixed hyperlipidemia E78.2 Active 067195264 Problem Type 2 diabetes mellitus with hyperglycemia E11.65 Active 56359353 Problem Essential (primary) hypertension I10 Active 96590747 Problem Anxiety disorder, unspecified type F41.9 Active 738809207 Problem MCFP (current) use of insulin Z79.4 Active 463311028 Problem 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 Active 681265718 Problem Ulcer of foot, limited to breakdown of skin, uns pecified laterality L97.501 Active 40011388 Problem Irritable bowel syndrome with diarrhea K58.0 Active 617788505 Problem Gastroparesis K31.84 Active 907731 006 Problem 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 Active 082197618 Problem Chronic obstructive pulmonary disease, unspecified COPD ty pe J44.9 Active 81750395 Problem Major depressive disorder, recurrent, in full remission F33.42 Active [id number] ALLERGIES No Information ENCOUNTERS Encounter Location Date Diagnosis [facility] [address] [facility] [id number] [address] [place] [id number] Apr, Chronic pain G89.[address] [id number] [address] Apr, Chronic pain G89.29 [facility] [address] [facility] [id number] [address] [place] [id number] March, Ulcer of foot, limited to br eakdown of skin, unspecified laterality L97.501 [facility] [address] [facility] [id number] [address] [place] [id number] March, Chronic pain G89.29 [facility] [address] [facility] [id number] [address] [place] [id number] Feb, Chronic pain G89.29 [facility] [address] [place] [id number] [address] [place] [id number] 13 Jan, 2020 Type 2 diabetes mellitus wit h hyperglycemia E11.65 ; 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 and Hyperkalemia E87.5 [place] [address] [phone] 10 Jan, 2020 Type 2 diabetes mellitus wit h diabetic autonomic (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 ; Hypothyroid E03.9 ; Dyshydrosis L30.1 and Irritable bowel syndrome with diarrhea K58.0 [place] [address] [place] [id number] [address] [place] [id number] 05 Jan, 2020 Chronic pain G89.29 [place] [address] [place] [id number] [address] [place] [id number] 10 Dec, 2019 Chronic pain G89.29 [place] [address] [place] [id number] [address] [place] [id number] 07 Dec, 2019 [place] [address] [place] [id number] [place] [id number] Dec, [facility] [address] [facility] [id number] [address] [place] [id number] Nov, Chronic pain G89.29 [place] [address] [place] [id number] [place] [id number] Oct, Chronic pain G89.29 [place] [address] [place] [id number] [address] [place] [id number] Sep, Chronic pain G89.29 [place] [address] [place] [id number] [address] [place] [id number] Sep, Type 2 diabetes mellitus wit h diabetic autonomic (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 ; Irritable bowel syndrome with diarrhea K58.0 ; Essential (primary) hypertension I10 and Encounter for immunization Z23 [facility] [address] [facility] [id number] [address] [place] [id number] Aug, Chronic pain G89.29 [facility] [address] [facility] [id number] [address] [place] [id number] Aug, [facility] [address] [facility] [id number] [address] [place] [id number] Jul, Chronic pain G89.29 [facility] [address] [facility] [id number] [address] [place] [id number] Jun, Other chronic pain G89.29 [facility] [address] [facility] [id number] [address] [place] [id number] Jun, [facility] [address] [facility] [id number] [address] [place] [id number] Jun, Chronic pain G89.29 [facility] [address] [facility] [id number] [address] [place] [id number] Jun, Neuropathy G62.9 [facility] [address] [facility] [id number] [address] [place] [id number] 06 Jun, 2019 Encounter for Medicare annua wellness exam Z00.00 ; Type 2 diabetes mellitus with hyperglycemia E11.65 ; Mixed hyperlipidemia E78.2 ; Hypothyroid E03.9 ; Gastroesophageal reflux disease with esophagitis K21.0 ; Essential (primary) hypertension I10 ; Major depressive disorder, recurrent, in full remission F33.42 ; Chronic obstructive pulmonary disease, unspecified COPD type J44.9 ; Neuropathy G62.9 and Encounter for immunization Z23 [facility] [address] [facility] [id number] [address] [place] [id number] 05 Jun, 2019 Irritable bowel syndrome wit h diarrhea K58.0 [facility] [address] [facility] [id number] [address] [place] [id number] May, Chronic pain G89.29 [facility] [address] [facility] [id number] [address] [place] [id number] May, Type 2 diabetes mellitus wit h hyperglycemia E11.65 and Neuropathy G62.9 [facility] [address] [id number] [address] [place] [id number] May, Chronic pain G89.29 [facility] [address] [id number] [address] [place] [id number] Apr, Poison maryam dermatitis L23.7 [facility] [address] [facility] [id number] [address] [place] [id number] Apr, Chronic pain G89.29 [facility] [address] [facility] [id number] [address] [place] [id number] March, Type 2 diabetes mellitus wit h hyperglycemia E11.65 [facility] [address] [facility] [id number] [address] [place] [id number] March, Chronic pain G89.29 [facility] [address] [facility] [id number] [address] [place] [id number] March, [id number] [place] [id number] Feb, [facility] [address] [facility] [id number] [address] [place] [id number] Feb, Other chronic pain G89.29 an d Chronic pain G89.29 [facility] [address] [facility] [id number] [address] [place] [id number] Jan, Mixed hyperlipidemia E78.2 [facility] [address] [facility] [id number] [address] [place] [id number] Jan, Chronic pain G89.29 [facility] [address] [facility] [id number] [address] [place] [id number] Jan, Type 2 diabetes mellitus wit h hyperglycemia E11.65 ; Mixed hyperlipidemia E78.2 ; 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 ; Acquired hypothyroidism E03.9 and Essential (primary) hypertension I10 [facility] [address] [facility] [id number] [address] [place] [id number] 11 Dec, 2018 Chronic pain G89.29 [facility] [address] [facility] [id number] [address] [place] [id number] 14 Nov, 2018 Chronic pain G89.29 [facility] [address] [place] [id number] [address] [place] [id number] Nov, [facility] [address] [place] [id number] [address] [place] [id number] Oct, Chronic pain G89.29 [facility] [address] [place] [id number] [address] [place] [id number] Oct, [facility] [address] [place] [id number] [address] [place] [id number] Sep, [facility] [address] [place] [id number] [address] [place] [id number] Sep, Type 2 diabetes mellitus wit h hyperglycemia E11.65 [place] [address] [id number] Sep, Chronic pain G89.29 [facility] [address] [place] [id number] [address] [place] [id number] Sep, [facility] [address] [place] [id number] [address] [place] [id number] Sep, Type 2 diabetes mellitus wit h hyperglycemia E11.65 ; Irritable bowel syndrome with diarrhea K58.0 ; Gastroparesis K31.84 ; 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 and Dermatitis L30.9 [facility] [address] [facility] [id number] [address] [place] [id number] Aug, Chronic pain G89.29 [facility] [address] [place] [id number] [address] [place] [id number] Jul, Chronic pain G89.29 [facility] [address] [facility] [id number] [address] [place] [id number] Jun, Type 2 diabetes mellitus wit h hyperglycemia E11.65 ; Neuropathy G62.9 ; Recurrent major depressive disorder, in partial remission F33.41 ; Chronic pain G89.29 and Hypertriglyceridemia E78.1 [facility] [address] [facility] [id number] [address] [place] [id number] Jun, Hypothyroid E03.9 [place] [address] [facility] [id number] [address] [place] [id number] Jun, Major depressive disorder, r ecurrent episode, moderate F33.1 and Anxiety disorder, unspecified type F41.9 [place] [address] [facility] [id number] [address] [place] [id number] Jun, [place] [address] [place] [id number] [place] [phone] Jun, Type 2 diabetes mellitus wit h hyperglycemia E11.65 ; 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 ; Recurrent major depressive disorder, in partial remission F33.41 ; Hypothyroid E03.9 ; Candidal dermatitis B37.2 and Weakness generalized R53.1 [place] [address] [facility] [id number] [address] [place] [id number] May, [place] [address] [facility] [id number] [address] [place] [id number] May, [place] [address] [facility] [id number] [address] [place] [id number] May, [place] [address] [facility] [id number] [address] [place] [id number] May, Generalized abdominal pain R 10.84 and Candidal dermatitis B37.2 [facility] [address] [facility] [id number] [address] [place] [id number] May, [place] [address] [place] [id number] [address] [place] [id number] May, [facility] [address] [id number] [address] [place] [id number] 13 May, 2018 Nodular radiologic density R 93.8 ; Weight loss, unintentional R63.4 and Pulmonary emphysema, unspecified emphysema type J43.9 [place] [id number] [id number] [address] [place] [id number] 10 May, 2018 Chronic pain G89.29 [place] [address] [id number] [address] [place] [id number] 09 May, 2018 Syncope and collapse R55 ; C hronic fatigue R53.[address] lung screening R91.8 [place] [address] [id number] [address] [place] [id number] May, [place] [address] [facility] [id number] [address] [place] [id number] Apr, Chronic fatigue R53.82 ; Abn ormal chest CT R93.8 ; Elevated erythrocyte sedimentation rate R70.0 ; Hypothyroid E03.9 and Recurrent major depressive disorder, in partial remission F33.41 [place] [address] [id number] [address] [place] [id number] Apr, Hypothyroid E03.9 [place] [address] [id number] [address] [place] [id number] Apr, Depression F32.9 [place] [address] [id number] [address] [place] [id number] Apr, [place] [address] [id number] [address] [place] [phone] March, [place] [address] [facility] [id number] [address] [place] [phone] March, Hypothyroid E03.9 [place] [address] [id number] [address] [place] [id number] March, Diabetes mellitus E11.9 and Hypothyroid E03.9 [place] [address] [place] [id number] [address] [place] [id number] March, Diabetes mellitus E11.9 [place] [address] [place] [id number] [address] [place] [id number] March, Hypothyroid E03.9 and Elevat ed liver enzymes R74.8 [place] [address] [place] [id number] [address] [place] [id number] March, Type 2 diabetes mellitus wit h hyperglycemia E11.65 ; 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 ; Pulmonary emphysema, unspecified emphysema type J43.9 ; Hypothyroid E03.9 ; Neuropathy G62.9 ; Mixed hyperlipidemia E78.2 ; Chronic pain G89.29 ; Gastroesophageal reflux disease with esophagitis K21.0 ; Irritable bowel syndrome with diarrhea K58.0 ; Overactive bladder N32.81 and Recurrent major depressive disorder, in partial remission F33.41 [place] [address] [id number] Feb, Chronic pain G89.29 [place] [address] [place] [id number] [place] [id number] Feb, Type 2 diabetes mellitus wit h hyperglycemia E11.65 and Skin lesion of scalp L98.9 [place] [address] [place] [id number] [address] [place] [id number] Feb, [place] [address] [place] [id number] [address] [place] [id number] Jan, Type 2 diabetes mellitus wit h hyperglycemia E11.65 ; 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 ; Essential (primary) hypertension I10 ; Pulmonary emphysema, unspecified emphysema type J43.9 ; Chronic pain G89.29 ; Controlled substance agreement signed Z79.899 ; Hypothyroid E03.9 ; Neuropathy G62.9 ; Gastroesophageal reflux disease with esophagitis K21.0 ; Overactive bladder N32.81 ; Depression F32.9 and Irritable bowel syndrome with diarrhea K58.0 [place] [address] [place] [id number] [address] [place] [id number] Jan, [place] [address] [facility] [id number] [address] [place] [id number] Jan, Controlled substance agreeme nt signed Z79.899 [place] [address] [facility] [id number] [address] [place] [id number] 08 Dec, 2017 Type 2 diabetes mellitus wit h hyperglycemia E11.65 ; Controlled substance agreement signed Z79.899 ; MCFP 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 Z79.4 ; Essential (primary) hypertension I10 ; Hypothyroid E03.9 ; Neuropathy G62.9 ; Depression F32.9 ; Mixed hyperlipidemia E78.2 ; Irritable bowel syndrome with diarrhea K58.0 ; Gastroesophageal reflux disease with esophagitis K21.0 ; Thrombocytosis D47.3 ; Current non-adherence to medical treatment Z91.19 and Overweight (BMI 25.0-29.9) E66.3 [place] [address] [facility] [id number] [address] [place] [id number] 02 Dec, 2017 Controlled substance agreeme nt signed Z79.899 [place] [address] [facility] [id number] [address] [place] [id number] Nov, Type 2 diabetes mellitus wit h hyperglycemia E11.65 and Current non- adherence to medical treatment Z91.19 [place] [address] [facility] [id number] [address] [place] [phone] Nov, [place] [address] [facility] [id number] [address] [place] [id number] Nov, Chronic pain G89.29 [place] [address] [facility] [id number] [address] [place] [id number] Nov, [place] [address] [facility] [id number] [address] [place] [phone] Nov, Hypothyroid E03.9 [place] [address] [facility] [id number] [address] [place] [id number] Nov, Hypothyroid E03.9 [place] [address] [facility] [id number] [address] [place] [id number] Nov, Pulmonary emphysema, unspeci fied emphysema type J43.9 and Irritable bowel syndrome with diarrhea K58.0 [place] [address] [phone] Oct, [place] [address] [place] [id number] [address] [place] [phone] Oct, [place] [address] [id number] Oct, [place] [address] [place] [id number] [place] [phone] Oct, [place] [address] [address] Oct, Chronic pain G89.29 [place] [address] [address] Oct, Diabetes mellitus E11.9 ; De pression F32.9 ; Mixed hyperlipidemia E78.2 ; Hypotension, unspecified hypotension type I95.9 ; Pulmonary emphysema, unspecified emphysema type J43.9 and Weight loss, unintentional R63.4 [place] [address] [address] Oct, Chronic pain G89.29 [place] [address] [address] Sep, Chronic pain G89.29 [place] [address] [address] Sep, Hypothyroid E03.9 and Diabet es mellitus E11.9 [place] [address] [address] Aug, Type 2 diabetes mellitus wit h hyperglycemia E11.65 ; 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 ; Essential (primary) hypertension I10 ; Hypothyroid E03.9 ; Neuropathy G62.9 ; Chronic pain G89.29 ; Mixed hy perlipidemia E78.2 and Encounter for immunization Z23 [place] [address] [facility] [id number] [address] [place] [id number] Aug, Chronic pain G89.29 [facility] [address] [place] [id number] [address] [place] [id number] Aug, Overactive bladder N32.81 ; Diabetes mellitus E11.9 and Chronic pain G89.29 [facility] [address] [place] [id number] [address] [place] [id number] Jul, [facility] [address] [facility] [id number] [address] [place] [id number] Jun, [facility] [address] [place] [id number] [place] [id number] Jun, [facility] [address] [place] [id number] [place] [phone] Jun, Hypothyroid E03.9 [facility] [address] [place] [id number] [place] [id number] Jun, Diabetes mellitus E11.9 ; Hy pothyroid E03.9 ; Neuropathy G62.9 ; Chronic pain G89.29 and Neck mass R22.1 [facility] [address] [place] [id number] [address] [place] [id number] Apr, [facility] [address] [place] [id number] [address] [place] [address] Apr, Acute cystitis without hemat uria N30.00 [facility] [address] [place] [id number] [address] [place] [id number] March, [facility] [address] [facility] [id number] [address] [place] [phone] March, [facility] [address] [place] [id number] [address] [place] [phone] March, Near syncope R55 [facility] [address] [place] [id number] [address] [place] [id number] Feb, [facility] [address] [facility] [id number] [address] [place] [address] Feb, Chronic pain G89.29 [facility] [address] [facility] [id number] [address] [place] [id number] Feb, [facility] [address] [facility] [id number] [address] [place] [id number] Feb, [facility] [address] [facility] [id number] [address] [place] [address] Jan, Chronic pain G89.29 [facility] [address] [facility] [id number] [address] [place] [phone] Jan, [facility] [address] [place] [id number] [address] [place] [phone] Jan, [facility] [address] [place] [id number] [address] [place] [phone] Jan, Diabetes mellitus E11.9 ; Hy pothyroid E03.9 ; GERD (gastroesophageal reflux disease) K21.9 ; Insomnia G47.00 ; Functional 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 ; Neuropathy G62.9 ; Depression F32.9 ; Chronic pain G89.29 ; Irritable bowel syndrome with diarrhea K58.0 ; Overactive bladder N32.81 ; Mixed hyperlipidemia E78.2 and Bronchitis J40 [facility] [id number] [place] [id number] Dec, [facility] [address] [facility] [id number] [address] [place] [phone] Dec, [facility] [address] [facility] [id number] [address] [place] [id number] Dec, [facility] [address] [place] [id number] [address] [place] [id number] Dec, [facility] [address] [facility] [id number] [address] [place] [id number] Dec, Chronic pain G89.29 [facility] [address] [place] [address] [place] [address] Dec, [facility] [address] [facility] [id number] [address] [place] [id number] Dec, [facility] [address] [facility] [id number] [address] [place] [id number] Dec, Type 2 diabetes mellitus wit h foot ulcer E11.621 [facility] [address] [place] [id number] [address] [place] [id number] 17 Dec, 2016 Type 2 diabetes mellitus wit h foot ulcer E11.621 [facility] [address] [place] [id number] [address] [place] [address] 14 Dec, 2016 HTN (hypertension) I10 ; Dep ression F32.9 ; Type 2 diabetes mellitus with foot ulcer E11.621 ; Functional 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 ; Irritable bowel syndrome with diarrhea K58.0 ; Chronic pain G89.29 ; Insomnia G47.00 ; Overactive bladder N32.81 ; Mixed hyperlipidemia E78.2 ; Gastroesophageal reflux disease with esophagitis K21.0 and Acquired hypothyroidism E03.9 [place] [id number] [place] [id number] [place] [id number] Nov, [facility] [id number] [place] [phone] Oct, [place] [address] [id number] [place] [id number] Oct, [place] [address] [address] [place] [id number] [place] [id number] Oct, [facility] [address] [place] [id number] [place] [id number] Sep, Functional 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 ; HTN (hypertension) I10 ; Diabetes mellitus E11.9 ; Depression F32.9 ; Overactive bladder N32.81 ; Mixed hyperlipidemia E78.2 ; Gastroesophageal reflux disease without esophagitis K21.9 ; Chronic pain G89.29 ; Insomnia G47.00 and Acquired hypothyroidism E03.9 [place] [id number] [place] [id number] [place] [id number] 04 Sep, 2016 [place] [id number] [address] 11 Aug, 2016 Encounter for immunization Z 23 [facility] [address] [place] [id number] [place] [address] 06 Aug, 2016 [place] [address] [address] 09 Jul, 2016 [place] [address] [address] Jun, Type 2 diabetes mellitus wit hout complications E11.9 ; HTN (hypertension) I10 ; Hypothyroid E03.9 ; Neuropathy G62.9 ; Depression F32.9 ; Chronic pain G89.29 ; GERD (gastroesophageal reflux disease) K21.9 ; Insomnia G47.00 ; Overactive bladder N32.81 ; Mixed hyperlipidemia E78.2 ; Diarrhea of infectious origin A09 and Environmental allergies Z91.09 [place] [address] [address] Apr, [place] [address] [address] March, Hypothyroidism, unspecified E03.9 and Mixed hyperlipidemia E78.2 [place] [address] [address] March, Diabetes mellitus E11.9 ; HT N (hypertension) I10 ; Hypothyroid E03.9 ; Depression F32.9 ; Overactive bladder N32.81 ; Other chronic pain G89.29 ; Lumbago with sciatica, unspecified side M54.40 ; Environmental allergies Z91.09 and Gastroesophageal reflux disease, esophagitis presence not specified K21.9 [place] [id number] [place] [id number] [place] [address] March, [place] [address] [address] Jan, HTN (hypertension) I10 ; Hyp othyroid E03.9 ; Neuropathy G62.9 ; Diabetes mellitus E11.9 ; Chronic pain G89.29 ; GERD (gastroesophageal reflux disease) K21.9 ; Overactive bladder N32.81 and Depression F32.9 [place] [address] [address] 12 Dec, 2015 Ear pain, left H92.02 ; HTN (hypertension) I10 ; Hypothyroid E03.9 ; Neuropathy G62.9 ; Diabetes mellitus E11.9 ; Depression F32.9 ; GERD (gastroesophageal reflux disease) K21.9 ; Insomnia G47.00 and Overactive bladder N32.81 [place] [address] [address] Nov, Overactive bladder N32.81 an d Chronic pain G89.29 [place] [address] [address] Nov, Kidney failure N19 [place] [address] [address] Nov, [place] [address] [address] Nov, [place] [address] [address] Nov, Diabetes mellitus E11.9 ; De pression F32.9 ; Chronic pain G89.29 ; GERD (gastroesophageal reflux disease) K21.9 ; Insomnia G47.00 ; HTN (hypertension) I10 ; Hypothyroid E03.9 ; COPD (chronic obstructive pulmonary disease) J44.9 ; Bladder incontinence R32 and Incontinence R32 [place] [address] [address] Sep, Type 2 diabetes mellitus wit h foot ulcer E11.621 and Chromosomal abnormality, 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 [place] [address] [address] Sep, [place] [address] [address] Aug, [place] [address] [address] Aug, [place] [address] [address] Aug, HTN (hypertension) I10 ; Enc ounter for immunization Z23 ; Hypothyroid E03.9 ; Neuropathy G62.9 ; Diabetes mellitus E11.9 ; Depression F32.9 ; Chronic pain G89.29 ; GERD (gastroesophageal reflux disease) K21.9 ; Insomnia G47.00 and COPD (chronic obstructive pulmonary disease) J44.[address] [address] Jun, [address] [address] Jun, [address] [address] May, Essential hypertension, ivis gn 401.1 ; Unspecified hypothyroidism 244.9 ; Insomnia, unspecified 780.52 ; Shortness of breath 786.05 ; Depression 311 ; COPD (chronic obstructive pulmonary disease) 496 ; GERD (gastroesophageal reflux disease) 530.81 and Diabetes 1.5, 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 [address] May, [address] [address] May, [address] [address] May, Shortness of breath 786.05 ; Essential hypertension, benign 401.1 ; Diabetes mellitus 250.00 ; Hyperlipidemia 272.4 ; Hypothyroid 244.9 ; Insomnia 780.52 and Cough 786.[address] [address] Apr, [facility] [address] [facility] [id number] [address] [place] [address] March, Shortness of breath 786.05 ; Nausea with vomiting 787.01 ; Essential hypertension, benign 401.1 ; Diabetes mellitus 250.00 ; Hyperlipidemia 272.4 and Hypothyroid 244.9 [facility] [address] [id number] [address] [place] [address] Feb, [facility] [address] [id number] [address] [place] [address] Feb, [facility] [address] [facility] [id number] [address] [place] [address] Jan, [facility] [address] [id number] [address] [place] [address] Jan, [facility] [address] [facility] [id number] [address] [place] [phone] Jan, [facility] [address] [facility] [id number] [address] [place] [address] Jan, [facility] [address] [facility] [id number] [address] [place] [phone] Jan, [facility] [address] [facility] [id number] [address] [place] [phone] Jan, [facility] [address] [facility] [id number] [address] [place] [phone] Jan, [facility] [address] [id number] [address] [place] [phone] Jan, [facility] [address] [facility] [id number] [address] [place] [phone] Jan, [facility] [address] [facility] [id number] [address] [place] [phone] Jan, [facility] [address] [facility] [id number] [address] [place] [phone] Dec, [facility] [address] [id number] [address] [place] [address], [place] [address] Dec, 2014 [facility] [address] [id number] [address] [place] [address], [place] [address] Dec, 2014 [facility] [address] [id number] [address] [place] [address], [place] [address] Dec, 2014 [facility] [address] [id number] [address] [place] [address], [place] [address] Dec, 2014 [facility] [address] [id number] [address] [place] [address], [place] [address] Dec, 2014 [facility] [address] [id number] [address] [place] [address], [place] [address] Dec, 2014 [facility] [address] [id number] [address] [place] [address], [place] [address] Dec, 2014 [facility] [address] [id number] [address] [place] [address], [place] [address] Dec, 2014 [facility] [address] [id number] [address] [place] [address], [place] [address] Dec, 2014 [facility] [address] [id number] [address] [place] [address], [place] [address] Oct, [facility] [address] [id number] [address] [place] [address], [place] [address] Oct, [facility] [address] [id number] [address] [place] [phone] Oct, [facility] [address] [id number] [address] [place] [address], [place] [address] Oct, [facility] [address] [id number] [address] [place] [address], [place] [address] Oct, [facility] [address] [id number] [address] [place] [address], [place] [address] Oct, [facility] [address] [id number] [address] [place] [address], [place] [address] 05 Oct, 2014 [facility] [address] [id number] [address] [place] [address], [place] [address] 05 Oct, 2014 [facility] [address] [id number] [address] [place] [address], [place] [address] Oct, [facility] [address] [id number] [address] [place] [address], [place] [address] Oct, [facility] [address] [id number] [address] [place] [address], [place] [address] Oct, [facility] [address] [id number] [address] [place] [address], [place] [address] Oct, [facility] [address] [id number] [address] [place] [address], [place] [address] Oct, [facility] [address] [id number] [address] [place] [address], [place] [address] Oct, [facility] [address] [id number] [address] [place] [address], [place] [address] Sep, [facility] [address] [id number] [address] [place] [address], [place] [address] Sep, [facility] [address] [id number] [address] [place] [address], [place] [address] Sep, [facility] [address] [id number] [address] [place] [address], [place] [address] Sep, [facility] [address] [id number] [address] [place] [address], [place] [address] Sep, [facility] [address] [id number] [address] [place] [address], [place] [address] Sep, [facility] [address] [id number] [address] [place] [address], [place] [address] Sep, [facility] [address] [id number] [address] [place] [address], [place] [address] Sep, [facility] [address] [id number] [address] [place] [address], [place] [address] Sep, [facility] [address] [id number] [address] [place] [address], [place] [address] Aug, [facility] [address] [id number] [address] [place] [address], [place] [address] Aug, [facility] [address] [id number] [address] [place] [address], [place] [address] Aug, [facility] [address] [id number] [address] [place] [address], [place] [address] 17 Aug, 2014 [facility] [address] [id number] [address] [place] [address], [place] [address] 16 Aug, 2014 [facility] [address] [id number] [address] [place] [address], [place] [address] Aug, [facility] [address] [id number] [address] [place] [address], [place] [address] Aug, [facility] [address] [id number] [address] [place] [address], [place] [address] Aug, [facility] [address] [id number] [address] [place] [address], [place] [address] Aug, [facility] [address] [id number] [address] [place] [address], [place] [address] 29 Jul, 2014 [facility] [address] [id number] [address] [place] [address], [place] [address] 29 Jul, 2013 [facility] [address] [id number] [address] [place] [address], [place] [address] 25 Jul, 2014 [facility] [address] [id number] [address] [place] [address], [place] [address] Jul, 2013 [facility] [address] [id number] [address] [place] [address], [place] [address] 25 Jul, 2013 [facility] [address] [id number] [address] [place] [address], [place] [address] Jul, [facility] [address] [id number] [facility] [place] [address] Jul, [facility] [address] [id number] [address] [place] [address], [place] [address] Jul, [facility] [address] [id number] [address] [place] [address], [place] [address] Jul, [facility] [address] [id number] [address] [place] [address], [place] [address] Jul, [facility] [address] [id number] [address] [place] [address], [place] [address] Jun, [facility] [address] [id number] [address] [place] [address], [place] [address] Jun, [facility] [address] [id number] [address] [place] [address], [place] [address] Jun, [facility] [address] [id number] [address] [place] [address], [place] [address] Jun, [facility] [address] [id number] [address] [place] [address], [place] [address] Jun, [facility] [address] [id number] [address] [place] [address], [place] [address] Jun, [facility] [address] [id number] [address] [place] [address], [place] [address] Jun, [facility] [address] [id number] [address] [place] [address], [place] [address] Jun, [facility] [address] [id number] [address] [place] [address], [place] [address] Jun, [facility] [address] [id number] [address] [place] [address], [place] [address] Jun, [facility] [address] [id number] [address] [place] [address], [place] [address] Jun, [facility] [address] [id number] [address] [place] [address], [place] [address] Jun, [facility] [address] [id number] [address] [place] [address], [place] [address] May, [facility] [address] [id number] [address] [place] [address], [place] [address] May, [facility] [address] [id number] [address] [place] [address], [place] [address] May, [facility] [address] [id number] [address] [place] [address], [place] [address] May, [facility] [address] [id number] [address] [place] [address], [place] [address] May, [facility] [address] [id number] [address] [place] [address], [place] [address] May, [facility] [address] [id number] [address] [place] [address], [place] [address] March, [facility] [address] [id number] [address] [place] [address], [place] [address] March, [facility] [address] [id number] [address] [place] [address], [place] [address] March, [facility] [address] [id number] [address] [place] [address], [place] [address] March, [facility] [address] [id number] [address] [place] [address], [place] [address] March, [facility] [address] [id number] [address] [place] [address], [place] [address] March, [facility] [address] [id number] [address] [place] [address], [place] [address] Feb, [facility] [address] [id number] [address] [place] [address], [place] [address] Feb, [facility] [address] [id number] [address] [place] [address], [place] [address] Feb, [facility] [address] [id number] [address] [place] [address], [place] [address] Feb, [facility] [address] [id number] [address] [place] [address], [place] [address] Jan, [facility] [address] [id number] [address] [place] [address], [place] [address] Jan, [facility] [address] [id number] [address] [place] [address], [place] [address] Jan, [facility] [address] [id number] [address] [place] [address], [place] [address] Jan, [facility] [address] [id number] [address] [place] [address], [place] [address] Jan, [facility] [address] [id number] [address] [place] [address], [place] [address] Jan, [facility] [address] [id number] [address] [place] [address], [place] [address] Jan, [facility] [address] [id number] [address] [place] [address], [place] [address] Jan, [facility] [address] [id number] [address] [place] [address], [place] [address] Jan, [facility] [address] [id number] [address] [place] [address], [place] [address] Jan, [facility] [address] [id number] [address] [place] [address], [place] [address] Jan, [facility] [address] [id number] [address] [place] [address], [place] [address] Jan, [facility] [address] [id number] [address] [place] [address], [place] [address] Dec, [facility] [address] [id number] [address] [place] [address], [place] [address] Dec, [facility] [address] [id number] [address] [place] [address] Dec, [facility] [address] [id number] [address] [place] [address], [place] [address] Dec, [facility] [address] [id number] [address] [place] [address], [place] [address] Dec, [facility] [address] [id number] [address] [place] [address], [place] [address] Dec, [facility] [address] [id number] [address] [place] [address], [place] [address] Nov, [facility] [address] [id number] [address] [place] [address], [place] [address] Nov, [facility] [address] [id number] [address] [place] [address], [place] [address] Oct, [facility] [address] [id number] [address] [place] [address], [place] [address] Oct, [facility] [address] [id number] [address] [place] [address], [place] [address] Oct, [facility] [address] [id number] [address] [place] [address], [place] [address] Oct, [facility] [address] [id number] [address] [place] [address], [place] [address] Oct, [facility] [address] [id number] [address] [place] [address], [place] [address] Oct, [facility] [address] [id number] [address] [place] [address], [place] [address] Sep, [facility] [address] [id number] [address] [place] [address], [place] [address] Sep, [facility] [address] [id number] [address] [place] [address], [place] [address] Sep, [facility] [address] [id number] [address] [place] [address], [place] [address] Sep, [facility] [address] [id number] [address] [place] [address], [place] [address] Aug, [facility] [address] [id number] [address] [place] [address], [place] [address] Aug, [facility] [address] [id number] [address] [place] [address], [place] [address] Aug, [facility] [address] [id number] [address] [place] [address], [place] [address] Jul, [facility] [address] [id number] [address] [place] [address], [place] [address] Jul, [facility] [address] [id number] [address] [place] [address], [place] [address] Jul, [facility] [address] [id number] [address] [place] [address], [place] [address] Jun, [facility] [address] [id number] [address] [place] [address], [place] [address] Jun, [facility] [address] [id number] [address] [place] [address], [place] [address] Jun, [facility] [address] [id number] [address] [place] [address], [place] [address] Apr, [facility] [address] [id number] [address] [place] [address], [place] [address] Apr, [facility] [address] [id number] [address] [place] [address], [place] [address] March, [facility] [address] [id number] [address] [place] [address], [place] [address] March, [facility] [address] [id number] [address] [place] [address], [place] [address] March, [facility] [address] [id number] [address] [place] [address], [place] [address] March, [facility] [address] [id number] [address] [place] [id number] Feb, [facility] [address] [id number] [address] [place] [address], [place] [address] Jan, [facility] [address] [id number] [address] [place] [address], [place] [address] 13 Dec, 2012 [facility] [address] [id number] [address] [place] [address], [place] [address] 08 Dec, 2012 [facility] [address] [id number] [address] [place] [address], [place] [address] 07 Dec, 2012 [facility] [address] [id number] [address] [place] [address], [place] [address] Nov, [facility] [address] [id number] [address] [place] [address], [place] [address] Oct, [facility] [address] [id number] [address] [place] [address], [place] [address] Oct, [facility] [address] [id number] [address] [place] [address], [place] [address] Sep, [facility] [address] [id number] [address] [place] [address], [place] [address] Sep, [facility] [address] [id number] [address] [place] [address], [place] [address] Sep, [facility] [address] [id number] [address] [place] [address], [place] [address] Sep, [facility] [address] [id number] [address] [place] [id number] Sep, [facility] [address] [id number] [address] [place] [address], [place] [address] Sep, [facility] [address] [id number] [address] [place] [address], [place] [address] Sep, [facility] [address] [id number] [address] [place] [address], [place] [address] 16 Aug, 2012 [facility] [address] [id number] [address] [place] [address], [place] [address] 16 Aug, 2012 [facility] [address] [id number] [address] [place] [address], [place] [address] 10 Aug, 2012 [facility] [address] [id number] [address] [place] [address], [place] [address] 10 Aug, 2012 [facility] [address] [id number] [address] [place] [address], [place] [address] 08 Aug, 2012 [facility] [address] [id number] [address] [place] [address], [place] [address] 08 Aug, 2012 [facility] [address] [id number] [address] [place] [address], [place] [address] Aug, [facility] [address] [id number] [address] [place] [address], [place] [address] Aug, [facility] [address] [id number] [address] [place] [address], [place] [address] Jul, [facility] [address] [id number] [address] [place] [address], [place] [address] Jul, [facility] [address] [id number] [address] [place] [address], [place] [address] Jun, [facility] [address] [id number] [address] [place] [address], [place] [address] May, [facility] [address] [id number] [address] [place] [address], [place] [address] Apr, [facility] [address] [id number] [address] [place] [address], [place] [address] Apr, [facility] [address] [id number] [address] [place] [address], [place] [address] Apr, [facility] [address] [id number] [address] [place] [address], [place] [address] March, [facility] [address] [id number] [address] [place] [address], [place] [address] March, [facility] [address] [id number] [facility] [place] [address] March, [facility] [address] [id number] [address] [place] [address], [place] [address] March, [facility] [address] [id number] [address] [place] [address], [place] [address] March, [facility] [address] [id number] [address] [place] [address], [place] [address] March, [facility] [address] [id number] [address] [place] [address], [place] [address] March, [facility] [address] [id number] [address] [place] [address], [place] [address] Jan, [facility] [address] [id number] [address] [place] [address], [place] [address] Jan, [facility] [address] [id number] [address] [place] [address], [place] [address] Jan, [facility] [address] [id number] [address] [place] [address], [place] [address] Jan, [facility] [address] [id number] [address] [place] [address], [place] [address] Jan, [facility] [address] [id number] [address] [place] [address], [place] [address] Dec, [facility] [address] [id number] [address] [place] [address], [place] [address] Dec, [facility] [address] [id number] [address] [place] [address], [place] [address] Nov, [facility] [address] [id number] [address] [place] [address], [place] [address] Nov, [facility] [address] [id number] [address] [place] [address], [place] [address] Nov, [facility] [address] [id number] [address] [place] [address], [place] [address] 05 Nov, 2011 [facility] [address] [id number] [address] [place] [address], [place] [address] 21 Oct, 2011 [facility] [address] [id number] [address] [place] [address], [place] [address] 06 Oct, 2011 [facility] [address] [id number] [address] [place] [address], [place] [address] 14 Sep, 2011 [facility] [address] [id number] [address] [place] [address], [place] [address] 10 Sep, 2011 [facility] [address] [id number] [address] [place] [address], [place] [address] 10 Sep, 2011 [facility] [address] [id number] [address] [place] [address], [place] [address] May, [facility] [address] [id number] [address] [place] [address], [place] [address] 20 Nov, 2010 [facility] [address] [id number] [address] [place] [address], [place] [address] 29 Oct, 2010 [facility] [address] [id number] [address] [place] [address], [place] [address] 14 Oct, 2010 [facility] [address] [id number] [address] [place] [address], [place] [address] 08 Oct, 2010 [facility] [address] [id number] [address] [place] [address], [place] [address] 15 Sep, 2010 [facility] [address] [id number] [address] [place] [address], [place] [address] Sep, [facility] [address] [id number] [address] [place] [address], [place] [address] Aug, [facility] [address] [id number] [address] [place] [address], [place] [address] March, [facility] [address] [id number] [address] [place] [address], [place] [address] Oct, [facility] [address] [id number] [address] [place] [phone] Oct, [facility] [address] [id number] [address] [place] [phone] Oct, [facility] [address] [id number] [address] [place] [phone] Oct, [facility] [address] [id number] [address] [place] [phone] Sep, [facility] [address] [id number] [address] [place] [phone] Sep, [facility] [address] [id number] [address] [place] [phone] Sep, [facility] [address] [id number] [address] [place] [phone] Aug, [facility] [address] [id number] [address] [place] [phone] Aug, [facility] [address] [id number] [address] [place] [phone] Aug, [facility] [address] [id number] [address] [place] [phone] Jan, IMMUNIZATIONS No Known Immunizations SOCIAL HISTORY Never Assessed REASON FOR VISIT PLAN OF CARE VITAL SIGNS Height 69 in 2013-09-15 Weight 237.1 lbs 2013-09-15 Temperature 97.8 degrees Fahrenheit 2013-09-15 Heart Rate 80 bpm 2013-09-15 Respiratory Rate 20 2013-09-15 Blood pressure systolic 130 mmHg 2013-09-15 Blood pressure diastolic 86 mmHg 2013-09-15 MEDICATIONS Unknown Medications RESULTS No Results PROCEDURES Procedure Date Ordered Result Body Site ADMN FLU VAC NO FEE SCHED SAME DAY Sep 15, 2013 INSTRUCTIONS MEDICATIONS ADMINISTERED No Known Medications [...]
--- OUTSIDE RECORDS SUMMARY | 2020-06-13 15:55 | XMS REPORT ---
Author Author Jah Durant Doctor Organization [facility] Address Unknown Phone Unavailable Care Team Providers Care Radar Operator Name Role Phone Migration, Doctor Unavailable Unavailable PROBLEMS Type Condition ICD9-CM Code CCR29-LU Code Onset Dates Condition S tatus SNOMED Code Problem Neuropathy G62.9 Active 812694962 Problem Chronic pain G89.29 Active 3192198 1 Problem Overactive bladder N32.81 Active 2 95715547 Problem Hypothyroid E03.9 Active 99087322 Problem Gastroesophageal reflux disease with esophagitis K 21.0 Active 275571677 Problem Mixed hyperlipidemia E78.2 Active 737825468 Problem Type 2 diabetes mellitus with hyperglycemia E11.65 Active 27459701 Problem Essential (primary) hypertension I10 Active 93846864 Problem Anxiety disorder, unspecified type F41.9 Active 154579305 Problem nursing home (current) use of insulin Z79.4 Active 334104539 Problem 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.4 Active 162537252 Problem Ulcer of foot, limited to breakdown of skin, uns pecified laterality L97.501 Active 71142465 Problem Irritable bowel syndrome with diarrhea K58.0 Active 392501858 Problem Gastroparesis K31.84 Active 611904 006 Problem 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 Active 416070669 Problem Chronic obstructive pulmonary disease, unspecified COPD ty pe J44.9 Active 81028591 Problem Major depressive disorder, recurrent, in full remission F33.42 Active [id number] ALLERGIES No Information ENCOUNTERS Encounter Location Date Diagnosis [facility] [address] [facility] [id number] [address] [place] [phone] March, Ulcer of foot, limited to br eakdown of skin, unspecified laterality L97.501 [facility] [address] [facility] [id number] [address] [place] [address] March, Chronic pain G89.29 [facility] [address] [facility] [id number] [address] [place] [address] Feb, Chronic pain G89.29 [facility] [address] [place] [id number] [address] [place] [phone] 13 Jan, 2020 Type 2 diabetes mellitus wit h hyperglycemia E11.65 ; nursing home (current) use of insulin Z79.4 and Hyperkalemia E87.5 [place] [address] [id number] 10 Jan, 2020 Type 2 diabetes mellitus wit h diabetic autonomic (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 ; Hypothyroid E03.9 ; Dyshydrosis L30.1 and Irritable bowel syndrome with diarrhea K58.0 [place] [address] [address] 05 Jan, 2020 Chronic pain G89.29 [place] [address] [id number] 10 Dec, 2019 Chronic pain G89.29 [place] [address] [place] [id number] [address] [place] [address] Dec, [place] [address] [address] Dec, [place] [address] [address] Nov, Chronic pain G89.29 [place] [address] [place] [id number] [address] [place] [address] Oct, Chronic pain G89.29 [place] [address] [place] [id number] [address] [place] [address] Sep, Chronic pain G89.29 [place] [address] [place] [id number] [place] [address] Sep, Type 2 diabetes mellitus wit h diabetic autonomic (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 ; Irritable bowel syndrome with diarrhea K58.0 ; Essential (primary) hypertension I10 and Encounter for immunization Z23 [place] [address] [place] [id number] [place] [address] Aug, Chronic pain G89.29 [facility] [address] [id number] [address] [place] [phone] Aug, [facility] [address] [facility] [id number] [address] [place] [phone] Jul, Chronic pain G89.29 [facility] [address] [facility] [id number] [address] [place] [phone] Jun, Other chronic pain G89.29 [facility] [address] [id number] [address] [place] [id number] Jun, [facility] [address] [facility] [id number] [address] [place] [address] Jun, Chronic pain G89.29 [facility] [address] [facility] [id number] [address] [place] [address] Jun, Neuropathy G62.9 [facility] [address] [facility] [id number] [address] [place] [address] Jun, Encounter for Medicare annua l wellness exam Z00.00 ; Type 2 diabetes mellitus with hyperglycemia E11.65 ; Mixed hyperlipidemia E78.2 ; Hypothyroid E03.9 ; Gastroesophageal reflux disease with esophagitis K21.0 ; Essential (primary) hypertension I10 ; Major depressive disorder, recurrent, in full remission F33.42 ; Chronic obstructive pulmonary disease, unspecified COPD type J44.9 ; Neuropathy G62.9 and Encounter for immunization Z23 [facility] [address] [facility] [id number] [address] [place] [phone] Jun, Irritable bowel syndrome wit h diarrhea K58.0 [facility] [address] [facility] [id number] [address] [place] [address] May, Chronic pain G89.29 [facility] [address] [facility] [id number] [address] [place] [address] May, Type 2 diabetes mellitus wit h hyperglycemia E11.65 and Neuropathy G62.9 [facility] [address] [facility] [id number] [address] [place] [address] May, Chronic pain G89.29 [facility] [address] [facility] [id number] [address] [place] [address] Apr, Poison maryam dermatitis L23.7 [facility] [address] [facility] [id number] [address] [place] [address] Apr, Chronic pain G89.29 [facility] [address] [facility] [id number] [address] [place] [address] March, Type 2 diabetes mellitus wit h hyperglycemia E11.65 [facility] [address] [facility] [id number] [address] [place] [address] March, Chronic pain G89.29 [facility] [address] [facility] [id number] [address] [place] [address] March, [id number] [place] [phone] Feb, [facility] [address] [facility] [id number] [address] [place] [phone] Feb, Other chronic pain G89.29 an d Chronic pain G89.29 [facility] [address] [facility] [id number] [address] [place] [address] Jan, Mixed hyperlipidemia E78.2 [facility] [address] [facility] [id number] [address] [place] [address] Jan, Chronic pain G89.29 [facility] [address] [facility] [id number] [address] [place] [address] Jan, Type 2 diabetes mellitus wit h hyperglycemia E11.65 ; Mixed hyperlipidemia E78.2 ; nursing home 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 Z79.4 ; Acquired hypothyroidism E03.9 and Essential (primary) hypertension I10 [facility] [address] [facility] [id number] [address] [place] [address] Dec, Chronic pain G89.29 [facility] [address] [facility] [id number] [address] [place] [phone] Nov, Chronic pain G89.29 [facility] [address] [facility] [id number] [address] [place] [address] Nov, [facility] [address] [facility] [id number] [address] [place] [address] Oct, Chronic pain G89.29 [facility] [address] [place] [id number] [address] [place] [phone] Oct, [facility] [address] [facility] [id number] [address] [place] [address] Sep, [facility] [address] [place] [id number] [place] [address] Sep, Type 2 diabetes mellitus wit h hyperglycemia E11.65 [place] [address] [place] [id number] [address] [place] [address] Sep, Chronic pain G89.29 [facility] [address] [place] [id number] [address] [place] [id number] Sep, [facility] [address] [place] [id number] [place] [address] Sep, Type 2 diabetes mellitus wit h hyperglycemia E11.65 ; Irritable bowel syndrome with diarrhea K58.0 ; Gastroparesis K31.84 ; 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 and Dermatitis L30.9 [facility] [address] [facility] [id number] [address] [place] [address] Aug, Chronic pain G89.29 [facility] [address] [place] [id number] [address] [place] [address] Jul, Chronic pain G89.29 [facility] [address] [place] [id number] [address] [place] [address] Jun, Type 2 diabetes mellitus wit h hyperglycemia E11.65 ; Neuropathy G62.9 ; Recurrent major depressive disorder, in partial remission F33.41 ; Chronic pain G89.29 and Hypertriglyceridemia E78.1 [place] [address] [facility] [id number] [address] [place] [phone] Jun, Hypothyroid E03.9 [place] [address] [facility] [id number] [address] [place] [phone] 16 Jun, 2018 Major depressive disorder, r ecurrent episode, moderate F33.1 and Anxiety disorder, unspecified type F41.9 [place] [address] [address] Jun, [place] [address] [address] Jun, Type 2 diabetes mellitus wit h hyperglycemia E11.65 ; 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.4 ; Recurrent major depressive disorder, in partial remission F33.41 ; Hypothyroid E03.9 ; Candidal dermatitis B37.2 and Weakness generalized R53.1 [place] [address] [place] [id number] [address] [place] [address] May, [place] [address] [place] [id number] [address] [place] [phone] May, [place] [address] [place] [id number] [address] [place] [address] May, [place] [address] [place] [id number] [address] [place] [address] May, Generalized abdominal pain R 10.84 and Candidal dermatitis B37.2 [place] [address] [place] [id number] [address] [place] [address] May, [place] [address] [place] [id number] [address] [place] [address] May, [place] [address] [place] [id number] [address] [place] [address] May, Nodular radiologic density R 93.8 ; Weight loss, unintentional R63.4 and Pulmonary emphysema, unspecified emphysema type J43.9 [place] [address] [place] [id number] [address] [place] [address] 10 May, 2018 Chronic pain G89.29 [facility] [address] [facility] [id number] [address] [place] [phone] 09 May, 2018 Syncope and collapse R55 ; C hronic fatigue R53.[address] lung screening R91.8 [facility] [address] [facility] [id number] [address] [place] [phone] May, [facility] [address] [facility] [id number] [address] [place] [address] Apr, Chronic fatigue R53.82 ; Abn ormal chest CT R93.8 ; Elevated erythrocyte sedimentation rate R70.0 ; Hypothyroid E03.9 and Recurrent major depressive disorder, in partial remission F33.41 [facility] [address] [place] [id number] [address] [place] [address] Apr, Hypothyroid E03.9 [facility] [address] [facility] [id number] [address] [place] [address] Apr, Depression F32.9 [facility] [address] [facility] [id number] [address] [place] [address] Apr, [facility] [address] [place] [id number] [address] [place] [address] March, [facility] [address] [place] [id number] [address] [place] [address] March, Hypothyroid E03.9 [facility] [address] [facility] [id number] [address] [place] [address] March, Diabetes mellitus E11.9 and Hypothyroid E03.9 [facility] [address] [facility] [id number] [address] [place] [address] March, Diabetes mellitus E11.9 [facility] [address] [facility] [id number] [address] [place] [address] March, Hypothyroid E03.9 and Elevat ed liver enzymes R74.8 [place] [address] [facility] [id number] [address] [place] [address] March, Type 2 diabetes mellitus wit h hyperglycemia E11.65 ; nursing home 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 Z79.4 ; Pulmonary emphysema, unspecified emphysema type J43.9 ; Hypothyroid E03.9 ; Neuropathy G62.9 ; Mixed hyperlipidemia E78.2 ; Chronic pain G89.29 ; Gastroesophageal reflux disease with esophagitis K21.0 ; Irritable bowel syndrome with diarrhea K58.0 ; Overactive bladder N32.81 and Recurrent major depressive disorder, in partial remission F33.41 [place] [address] [facility] [id number] [address] [place] [address] Feb, Chronic pain G89.29 [place] [address] [facility] [id number] [address] [place] [address] Feb, Type 2 diabetes mellitus wit h hyperglycemia E11.65 and Skin lesion of scalp L98.9 [place] [address] [facility] [id number] [address] [place] [address] Feb, [place] [address] [facility] [id number] [address] [place] [address] Jan, Type 2 diabetes mellitus wit h hyperglycemia E11.65 ; nursing home 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 Z79.4 ; Essential (primary) hypertension I10 ; Pulmonary emphysema, unspecified emphysema type J43.9 ; Chronic pain G89.29 ; Controlled substance agreement signed Z79.899 ; Hypothyroid E03.9 ; Neuropathy G62.9 ; Gastroesophageal reflux disease with esophagitis K21.0 ; Overactive bladder N32.81 ; Depression F32.9 and Irritable bowel syndrome with diarrhea K58.0 [place] [address] [facility] [id number] [address] [place] [phone] Jan, [place] [address] [facility] [id number] [address] [place] [address] Jan, Controlled substance agreeme nt signed Z79.899 [place] [address] [facility] [id number] [address] [place] [address] 08 Feb, 2018 Type 2 diabetes mellitus wit h hyperglycemia E11.65 ; Controlled substance agreement signed Z79.899 ; 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.4 ; Essential (primary) hypertension I10 ; Hypothyroid E03.9 ; Neuropathy G62.9 ; Depression F32.9 ; Mixed hyperlipidemia E78.2 ; Irritable bowel syndrome with diarrhea K58.0 ; Gastroesophageal reflux disease with esophagitis K21.0 ; Thrombocytosis D47.3 ; Current non-adherence to medical treatment Z91.19 and Overweight (BMI 25.0-29.9) E66.3 [facility] [address] [id number] [address] [place] [phone] 02 Dec, 2018 Controlled substance agreeme nt signed Z79.899 [place] [address] [facility] [id number] [address] [place] [phone] Nov, Type 2 diabetes mellitus wit h hyperglycemia E11.65 and Current non- adherence to medical treatment Z91.19 [place] [address] [id number] [address] [place] [phone] Nov, [place] [address] [id number] [address] [place] [address] Nov, Chronic pain G89.29 [place] [address] [facility] [id number] [address] [place] [address] Nov, [place] [address] [facility] [id number] [address] [place] [phone] Nov, Hypothyroid E03.9 [place] [address] [id number] [address] [place] [address] Nov, Hypothyroid E03.9 [place] [address] [facility] [id number] [address] [place] [address] Nov, Pulmonary emphysema, unspeci fied emphysema type J43.9 and Irritable bowel syndrome with diarrhea K58.0 [place] [address] [id number] [address] [place] [address] Oct, [place] [address] [facility] [id number] [address] [place] [phone] Oct, [place] [address] [facility] [id number] [address] [place] [address] Oct, [place] [address] [facility] [id number] [address] [place] [address] Oct, [place] [address] [address] Oct, Chronic pain G89.29 [place] [address] [place] [id number] [place] [address] Oct, Diabetes mellitus E11.9 ; De pression F32.9 ; Mixed hyperlipidemia E78.2 ; Hypotension, unspecified hypotension type I95.9 ; Pulmonary emphysema, unspecified emphysema type J43.9 and Weight loss, unintentional R63.4 [place] [address] [address] Oct, Chronic pain G89.29 [place] [address] [address] Sep, Chronic pain G89.29 [place] [address] [address] Sep, Hypothyroid E03.9 and Diabet es mellitus E11.[address] [address] Aug, Type 2 diabetes mellitus wit h hyperglycemia E11.65 ; nursing home 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 Z79.4 ; Essential (primary) hypertension I10 ; Hypothyroid E03.9 ; Neuropathy G62.9 ; Chronic pain G89.29 ; Mixed hy perlipidemia E78.2 and Encounter for immunization Z23 [place] [address] [place] [id number] [address] [place] [address] Aug, Chronic pain G89.29 [place] [address] [address] Aug, Overactive bladder N32.81 ; Diabetes mellitus E11.9 and Chronic pain G89.29 [facility] [address] [facility] [id number] [address] [place] [phone] Jul, [facility] [address] [facility] [id number] [address] [place] [address] Jun, [facility] [address] [facility] [id number] [address] [place] [address] Jun, [facility] [address] [facility] [id number] [address] [place] [address] Jun, Hypothyroid E03.9 [facility] [address] [facility] [id number] [address] [place] [address] Jun, Diabetes mellitus E11.9 ; Hy pothyroid E03.9 ; Neuropathy G62.9 ; Chronic pain G89.29 and Neck mass R22.1 [facility] [address] [facility] [id number] [address] [place] [address] Apr, [facility] [address] [facility] [id number] [address] [place] [address] Apr, Acute cystitis without hemat uria N30.00 [facility] [address] [facility] [id number] [address] [place] [address] March, [facility] [address] [facility] [id number] [address] [place] [address] March, [facility] [address] [facility] [id number] [address] [place] [phone] March, Near syncope R55 [facility] [address] [facility] [id number] [address] [place] [address] Feb, [facility] [address] [facility] [id number] [address] [place] [address] Feb, Chronic pain G89.29 [facility] [address] [facility] [id number] [address] [place] [address] Feb, [facility] [id number] [place] [address] Feb, [facility] [address] [facility] [id number] [address] [place] [address] Jan, Chronic pain G89.29 [facility] [address] [place] [id number] [address] [place] [address] Jan, [facility] [address] [address] 16 Jan, 2017 [facility] [address] [place] [id number] [address] [place] [address] 14 Jan, 2017 Diabetes mellitus E11.9 ; Hy pothyroid E03.9 ; GERD (gastroesophageal reflux disease) K21.9 ; Insomnia G47.00 ; Functional 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 ; Neuropathy G62.9 ; Depression F32.9 ; Chronic pain G89.29 ; Irritable bowel syndrome with diarrhea K58.0 ; Overactive bladder N32.81 ; Mixed hyperlipidemia E78.2 and Bronchitis J40 [facility] [id number] [place] [address] Dec, [facility] [address] [place] [id number] [address] [place] [address] Dec, [facility] [id number] [place] [address] Dec, [facility] [id number] [place] [address] Dec, [facility] [address] [place] [id number] [address] [place] [address] Dec, Chronic pain G89.29 [facility] [address] [place] [id number] [address] [place] [address] Dec, [facility] [address] [place] [id number] [address] [place] [phone] Dec, [facility] [address] [id number] [address] [place] [phone] 17 Dec, 2016 Type 2 diabetes mellitus wit h foot ulcer E11.621 [facility] [address] [place] [id number] [address] [place] [phone] 17 Dec, 2016 Type 2 diabetes mellitus wit h foot ulcer E11.621 [place] [id number] [place] [id number] [address] [place] [phone] 14 Dec, 2016 HTN (hypertension) I10 ; Dep ression F32.9 ; Type 2 diabetes mellitus with foot ulcer E11.621 ; Functional 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 ; Irritable bowel syndrome with diarrhea K58.0 ; Chronic pain G89.29 ; Insomnia G47.00 ; Overactive bladder N32.81 ; Mixed hyperlipidemia E78.2 ; Gastroesophageal reflux disease with esophagitis K21.0 and Acquired hypothyroidism E03.9 [place] [address] [phone] Nov, [place] [address] [phone] Oct, [place] [address] [phone] Oct, [place] [address] [phone] Oct, [place] [address] [id number] Sep, Functional 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 ; HTN (hypertension) I10 ; Diabetes mellitus E11.9 ; Depression F32.9 ; Overactive bladder N32.81 ; Mixed hyperlipidemia E78.2 ; Gastroesophageal reflux disease without esophagitis K21.9 ; Chronic pain G89.29 ; Insomnia G47.00 and Acquired hypothyroidism E03.9 [place] [place] [address] [address] 04 Sep, 2016 [place] [address] [address] 11 Aug, 2016 Encounter for immunization Z 23 [place] [address] [place] [id number] [address] [place] [address] Aug, [place] [address] [address] Jul, [place] [address] [address] Jun, Type 2 diabetes mellitus wit hout complications E11.9 ; HTN (hypertension) I10 ; Hypothyroid E03.9 ; Neuropathy G62.9 ; Depression F32.9 ; Chronic pain G89.29 ; GERD (gastroesophageal reflux disease) K21.9 ; Insomnia G47.00 ; Overactive bladder N32.81 ; Mixed hyperlipidemia E78.2 ; Diarrhea of infectious origin A09 and Environmental allergies Z91.09 [place] [address] [address] Apr, [place] [address] [address] March, Hypothyroidism, unspecified E03.9 and Mixed hyperlipidemia E78.2 [place] [address] [address] March, Diabetes mellitus E11.9 ; HT N (hypertension) I10 ; Hypothyroid E03.9 ; Depression F32.9 ; Overactive bladder N32.81 ; Other chronic pain G89.29 ; Lumbago with sciatica, unspecified side M54.40 ; Environmental allergies Z91.09 and Gastroesophageal reflux disease, esophagitis presence not specified K21.9 [place] [address] [place] [id number] [address] [place] [address] March, [place] [address] [address] Jan, HTN (hypertension) I10 ; Hyp othyroid E03.9 ; Neuropathy G62.9 ; Diabetes mellitus E11.9 ; Chronic pain G89.29 ; GERD (gastroesophageal reflux disease) K21.9 ; Overactive bladder N32.81 and Depression F32.9 [place] [address] [place] [id number] [address] [place] [address] Dec, Ear pain, left H92.02 ; HTN (hypertension) I10 ; Hypothyroid E03.9 ; Neuropathy G62.9 ; Diabetes mellitus E11.9 ; Depression F32.9 ; GERD (gastroesophageal reflux disease) K21.9 ; Insomnia G47.00 and Overactive bladder N32.81 [place] [address] [address] Nov, Overactive bladder N32.81 an d Chronic pain G89.29 [place] [address] [address] Nov, Kidney failure N19 [place] [address] [address] Nov, [place] [address] [address] Nov, [place] [address] [address] Nov, Diabetes mellitus E11.9 ; De pression F32.9 ; Chronic pain G89.29 ; GERD (gastroesophageal reflux disease) K21.9 ; Insomnia G47.00 ; HTN (hypertension) I10 ; Hypothyroid E03.9 ; COPD (chronic obstructive pulmonary disease) J44.9 ; Bladder incontinence R32 and Incontinence R32 [place] [address] [place] [id number] [place] [address] Sep, Type 2 diabetes mellitus wit h foot ulcer E11.621 and Chromosomal abnormality, 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 [place] [address] [place] [id number] [address] [place] [address] Sep, [place] [address] [address] Aug, [place] [address] [address] Aug, [facility] [address] [address] Aug, HTN (hypertension) I10 ; Enc ounter for immunization Z23 ; Hypothyroid E03.9 ; Neuropathy G62.9 ; Diabetes mellitus E11.9 ; Depression F32.9 ; Chronic pain G89.29 ; GERD (gastroesophageal reflux disease) K21.9 ; Insomnia G47.00 and COPD (chronic obstructive pulmonary disease) J44.[address] [address] Jun, [address] [address] Jun, [address] [address] May, Essential hypertension, ivis gn 401.1 ; Unspecified hypothyroidism 244.9 ; Insomnia, unspecified 780.52 ; Shortness of breath 786.05 ; Depression 311 ; COPD (chronic obstructive pulmonary disease) 496 ; GERD (gastroesophageal reflux disease) 530.81 and Diabetes 1.5, 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 [address] May, [address] [address] May, [address] [address] May, Shortness of breath 786.05 ; Essential hypertension, benign 401.1 ; Diabetes mellitus 250.00 ; Hyperlipidemia 272.4 ; Hypothyroid 244.9 ; Insomnia 780.52 and Cough 786.[address] [address] Apr, [address] [address] March, Shortness of breath 786.05 ; Nausea with vomiting 787.01 ; Essential hypertension, benign 401.1 ; Diabetes mellitus 250.00 ; Hyperlipidemia 272.4 and Hypothyroid 244.9 [facility] [address] [id number] [address] [place] [address], [place] [address] 14 Feb, 2015 [facility] [address] [id number] [address] [place] [address], [place] [address] Feb, [facility] [address] [id number] [address] [place] [address], [place] [address] Jan, [facility] [address] [id number] [address] [place] [address], [place] [address] Jan, [facility] [address] [id number] [address] [place] [address], [place] [address] Jan, [facility] [address] [id number] [address] [place] [address], [place] [address] Jan, [facility] [address] [id number] [address] [place] [address], [place] [address] Jan, [facility] [address] [id number] [address] [place] [address] Jan, [facility] [address] [id number] [address] [place] [address], [place] [address] Jan, [facility] [address] [id number] [address] [place] [address] Jan, [facility] [address] [id number] [address] [place] [address], [place] [address] Jan, [facility] [address] [id number] [address] [place] [address] Jan, [facility] [address] [id number] [address] [place] [address], [place] [address] Dec, [facility] [address] [id number] [address] [place] [address] Dec, [facility] [address] [id number] [address] [place] [address], [place] [address] Dec, [facility] [address] [id number] [address] [place] [address], [place] [address] Dec, 2014 [facility] [address] [id number] [address] [place] [address], [place] [address] Dec, 2014 [facility] [address] [id number] [address] [place] [address], [place] [address] Dec, 2014 [facility] [address] [id number] [address] [place] [address], [place] [address] Dec, 2014 [facility] [address] [id number] [address] [place] [address], [place] [address] Dec, 2014 [facility] [address] [id number] [address] [place] [address], [place] [address] Dec, 2014 [facility] [address] [id number] [address] [place] [address], [place] [address] Dec, 2014 [facility] [address] [id number] [address] [place] [address], [place] [address] Oct, [facility] [address] [id number] [address] [place] [address], [place] [address] Oct, [facility] [address] [id number] [address] [place] [address], [place] [address] Oct, [facility] [address] [id number] [address] [place] [address], [place] [address] Oct, [facility] [address] [id number] [address] [place] [address], [place] [address] Oct, [facility] [address] [id number] [address] [place] [address], [place] [address] Oct, [facility] [address] [id number] [address] [place] [address], [place] [address] Oct, [facility] [address] [id number] [address] [place] [address], [place] [address] Oct, [facility] [address] [id number] [address] [place] [address], [place] [address] Oct, [facility] [address] [id number] [address] [place] [address], [place] [address] Oct, [facility] [address] [id number] [address] [place] [address], [place] [address] Oct, [facility] [address] [id number] [address] [place] [address], [place] [address] Oct, [facility] [address] [id number] [address] [place] [address], [place] [address] Oct, [facility] [address] [id number] [address] [place] [address], [place] [address] Oct, [facility] [address] [id number] [address] [place] [address], [place] [address] Sep, [facility] [address] [id number] [address] [place] [address], [place] [address] Sep, [facility] [address] [id number] [address] [place] [address], [place] [address] Sep, [facility] [address] [id number] [address] [place] [address], [place] [address] Sep, [facility] [address] [id number] [address] [place] [address], [place] [address] Sep, [facility] [address] [id number] [address] [place] [address], [place] [address] Sep, [facility] [address] [id number] [address] [place] [address], [place] [address] Sep, [facility] [address] [id number] [address] [place] [address], [place] [address] Sep, [facility] [address] [id number] [address] [place] [address], [place] [address] Sep, [facility] [address] [id number] [address] [place] [address], [place] [address] Aug, [facility] [address] [id number] [address] [place] [address], [place] [address] 20 Aug, 2014 [facility] [address] [id number] [address] [place] [address], [place] [address] 17 Aug, 2014 [facility] [address] [id number] [address] [place] [address], [place] [address] 17 Aug, 2014 [facility] [address] [id number] [address] [place] [address], [place] [address] 16 Aug, 2014 [facility] [address] [id number] [address] [place] [address], [place] [address] Aug, [facility] [address] [id number] [address] [place] [address], [place] [address] Aug, [facility] [address] [id number] [address] [place] [address], [place] [address] Aug, [facility] [address] [id number] [address] [place] [address], [place] [address] Aug, [facility] [address] [id number] [address] [place] [address], [place] [address] 29 Sep, 2013 [facility] [address] [id number] [address] [place] [address], [place] [address] 29 Sep, 2013 [facility] [address] [id number] [address] [place] [address], [place] [address] 25 Sep, 2013 [facility] [address] [id number] [address] [place] [address], [place] [address] 25 Sep, 2013 [facility] [address] [id number] [address] [place] [address], [place] [address] 25 Sep, 2013 [facility] [address] [id number] [address] [place] [address], [place] [address] 25 Jul, 2013 [facility] [address] [id number] [address] [place] [address], [place] [address] 25 Jul, 2013 [facility] [address] [id number] [address] [place] [address], [place] [address] 25 Jul2013 [facility] [address] [id number] [facility] [place] [address] Jul, [facility] [address] [id number] [facility] [place] [address] Jul, [facility] [address] [id number] [facility] [place] [address] Jun, [facility] [address] [id number] [facility] [place] [address] Jun, [facility] [address] [id number] [facility] [place] [address] Jun, [facility] [address] [id number] [address] [place] [address], [place] [address] Jun, [facility] [address] [id number] [address] [place] [address], [place] [address] Jun, [facility] [address] [id number] [address] [place] [address], [place] [address] Jun, [facility] [address] [id number] [address] [place] [address], [place] [address] Jun, [facility] [address] [id number] [address] [place] [address], [place] [address] Jun, [facility] [address] [id number] [address] [place] [address], [place] [address] Jun, [facility] [address] [id number] [address] [place] [address], [place] [address] Jun, [facility] [address] [id number] [address] [place] [address], [place] [address] Jun, [facility] [address] [id number] [address] [place] [address], [place] [address] Jun, [facility] [address] [id number] [address] [place] [address], [place] [address] May, [facility] [address] [id number] [address] [place] [address], [place] [address] May, [facility] [address] [id number] [facility] [place] [address] May, [facility] [address] [id number] [address] [place] [address], [place] [address] May, [facility] [address] [id number] [address] [place] [address], [place] [address] May, [facility] [address] [id number] [address] [place] [address], [place] [address] May, [facility] [address] [id number] [address] [place] [address], [place] [address] March, [facility] [address] [id number] [address] [place] [address], [place] [address] March, [facility] [address] [id number] [address] [place] [address], [place] [address] March, [facility] [address] [id number] [address] [place] [address], [place] [address] March, [facility] [address] [id number] [address] [place] [address], [place] [address] March, [facility] [address] [id number] [address] [place] [address], [place] [address] March, [facility] [address] [id number] [address] [place] [address], [place] [address] Feb, [facility] [address] [id number] [address] [place] [address], [place] [address] Feb, [facility] [address] [id number] [address] [place] [address], [place] [address] Feb, [facility] [address] [id number] [address] [place] [address], [place] [address] Feb, [facility] [address] [id number] [address] [place] [address], [place] [address] Jan, [facility] [address] [id number] [facility] [place] [address] 31 Jan, 2014 [facility] [address] [id number] [address] [place] [address], [place] [address] Jan, [facility] [address] [id number] [facility] [place] [address] Jan, [facility] [address] [id number] [address] [place] [address], [place] [address] Jan, [facility] [address] [id number] [address] [place] [address], [place] [address] Jan, [facility] [address] [id number] [address] [place] [address], [place] [address] Jan, [facility] [address] [id number] [address] [place] [address], [place] [address] Jan, [facility] [address] [id number] [address] [place] [address], [place] [address] Jan, [facility] [address] [id number] [address] [place] [address], [place] [address] Jan, [facility] [address] [id number] [address] [place] [address], [place] [address] 05 Jan, 2014 [facility] [address] [id number] [address] [place] [address], [place] [address] Jan, [facility] [address] [id number] [address] [place] [address], [place] [address] Dec, [facility] [address] [id number] [address] [place] [address], [place] [address] Dec, [facility] [address] [id number] [address] [place] [address], [place] [address] Dec, [facility] [address] [id number] [address] [place] [address], [place] [address] Dec, [facility] [address] [id number] [address] [place] [address], [place] [address] Dec, [facility] [address] [id number] [address] [place] [address], [place] [address] Dec, [facility] [address] [id number] [address] [place] [address], [place] [address] Nov, [facility] [address] [id number] [address] [place] [address], [place] [address] Nov, [facility] [address] [id number] [address] [place] [address], [place] [address] Oct, [facility] [address] [id number] [address] [place] [address], [place] [address] Oct, [facility] [address] [id number] [address] [place] [address], [place] [address] Oct, [facility] [address] [id number] [address] [place] [address], [place] [address] Oct, [facility] [address] [id number] [address] [place] [address], [place] [address] Oct, [facility] [address] [id number] [address] [place] [address], [place] [address] Oct, [facility] [address] [id number] [address] [place] [address], [place] [address] Sep, [facility] [address] [id number] [address] [place] [address], [place] [address] Sep, [facility] [address] [id number] [address] [place] [address] Sep, [facility] [address] [id number] [address] [place] [address], [place] [address] Sep, [facility] [address] [id number] [address] [place] [address], [place] [address] Aug, [facility] [address] [id number] [address] [place] [address], [place] [address] Aug, [facility] [address] [id number] [address] [place] [address], [place] [address] 08 Aug, 2013 [facility] [address] [id number] [address] [place] [address], [place] [address] 17 Jul, 2013 [facility] [address] [id number] [address] [place] [address], [place] [address] 14 Jul, 2013 [facility] [address] [id number] [address] [place] [address], [place] [address] 04 Jul, 2013 [facility] [address] [id number] [address] [place] [address], [place] [address] Jun, [facility] [address] [id number] [address] [place] [address], [place] [address] Jun, [facility] [address] [id number] [address] [place] [address], [place] [address] Jun, [facility] [address] [id number] [address] [place] [address], [place] [address] Apr, [facility] [address] [id number] [address] [place] [address], [place] [address] Apr, [facility] [address] [id number] [address] [place] [address], [place] [address] March, [facility] [address] [id number] [address] [place] [address], [place] [address] March, [facility] [address] [id number] [address] [place] [address], [place] [address] March, [facility] [address] [id number] [address] [place] [address], [place] [address] March, [facility] [address] [id number] [address] [place] [address], [place] [address] Feb, [facility] [address] [id number] [address] [place] [address], [place] [address] Jan, [facility] [address] [id number] [address] [place] [address], [place] [address] Dec, [facility] [address] [id number] [address] [place] [address], [place] [id number] 08 Dec, 2012 [facility] [address] [id number] [address] [place] [address], [place] [address] Dec, [facility] [address] [id number] [address] [place] [address], [place] [address] Nov, [facility] [address] [id number] [address] [place] [address], [place] [address] Oct, [facility] [address] [id number] [address] [place] [address], [place] [address] Oct, [facility] [address] [id number] [address] [place] [address], [place] [address] Sep, [facility] [address] [id number] [address] [place] [address], [place] [address] Sep, [facility] [address] [id number] [address] [place] [id number] Sep, [facility] [address] [id number] [address] [place] [address], [place] [address] Sep, [facility] [address] [id number] [address] [place] [address] Sep, [facility] [address] [id number] [address] [place] [address] Sep, [facility] [address] [id number] [address] [place] [address] Sep, [facility] [address] [id number] [address] [place] [address], [place] [address] Aug, [facility] [address] [id number] [address] [place] [id number] Aug, [facility] [address] [id number] [address] [place] [address] Aug, [facility] [address] [id number] [address] [place] [address] Aug, [facility] [address] [id number] [address] [place] [address], [place] [address] Aug, [facility] [address] [id number] [address] [place] [address], [place] [address] Aug, [facility] [address] [id number] [address] [place] [address], [place] [address] Aug, [facility] [address] [id number] [address] [place] [address], [place] [address] Aug, [facility] [address] [id number] [address] [place] [address], [place] [address] Jul, [facility] [address] [id number] [address] [place] [address], [place] [address] Jul, [facility] [address] [id number] [address] [place] [address], [place] [address] Jun, [facility] [address] [id number] [address] [place] [address], [place] [address] May, [facility] [address] [id number] [address] [place] [address], [place] [address] Apr, [facility] [address] [id number] [address] [place] [address], [place] [address] Apr, [facility] [address] [id number] [address] [place] [address], [place] [address] Apr, [facility] [address] [id number] [address] [place] [address], [place] [address] March, [facility] [address] [id number] [address] [place] [address], [place] [address] March, [facility] [address] [id number] [address] [place] [address], [place] [id number] March, [facility] [address] [id number] [address] [place] [address], [place] [address] March, [facility] [address] [id number] [address] [place] [address], [place] [address] March, [facility] [address] [id number] [address] [place] [address], [place] [address] March, [facility] [address] [id number] [address] [place] [address], [place] [address] March, [facility] [address] [id number] [address] [place] [address], [place] [address] Jan, [facility] [address] [id number] [address] [place] [address], [place] [address] Jan, [facility] [address] [id number] [address] [place] [address], [place] [address] Jan, [facility] [address] [id number] [address] [place] [address], [place] [address] Jan, [facility] [address] [id number] [address] [place] [address], [place] [id number] Jan, [facility] [address] [id number] [address] [place] [address], [place] [address] Dec, [facility] [address] [id number] [address] [place] [address], [place] [address] Dec, [facility] [address] [id number] [address] [place] [address], [place] [address] Nov, [facility] [address] [id number] [address] [place] [address], [place] [address] Nov, [facility] [address] [id number] [address] [place] [address], [place] [address] Nov, [facility] [address] [id number] [address] [place] [address], [place] [address] Nov, [facility] [address] [id number] [address] [place] [address], [place] [address] Oct, [facility] [address] [id number] [address] [place] [address], [place] [address] 06 Oct, 2011 [facility] [address] [id number] [address] [place] [address], [place] [address] 14 Sep, 2011 [facility] [address] [id number] [address] [place] [address], [place] [address] 10 Sep, 2011 [facility] [address] [id number] [address] [place] [address], [place] [address] 10 Sep, 2011 [facility] [address] [id number] [address] [place] [address], [place] [address] 11 May, 2011 [facility] [address] [id number] [address] [place] [address], [place] [address] 20 Nov, 2010 [facility] [address] [id number] [address] [place] [address], [place] [address] 29 Oct, 2010 [facility] [address] [id number] [address] [place] [address], [place] [address] 14 Oct, 2010 [facility] [address] [id number] [address] [place] [address], [place] [address] 08 Oct, 2010 [facility] [address] [id number] [address] [place] [address], [place] [address] 15 Sep, 2010 [facility] [address] [id number] [address] [place] [address], [place] [address] 02 Sep, 2010 [facility] [address] [id number] [address] [place] [address], [place] [address] Aug, [facility] [address] [id number] [address] [place] [address], [place] [address] March, [facility] [address] [id number] [address] [place] [address], [place] [address] 17 Oct, 2009 [facility] [address] [id number] [address] [place] [address], [place] [id number] 17 Oct, 2009 [facility] [address] [id number] [address] [place] [address], [place] [address] 10 Oct, 2009 [facility] [address] [id number] [address] [place] [id number] Oct, [facility] [address] [facility] [id number] [address] [place] [id number] Sep, [facility] [address] [facility] [id number] [address] [place] [id number] Sep, [facility] [address] [facility] [id number] [address] [place] [id number] Sep, [facility] [address] [facility] [id number] [address] [place] [id number] Aug, [facility] [address] [facility] [id number] [address] [place] [id number] Aug, [facility] [address] [facility] [id number] [address] [place] [id number] Aug, [facility] [address] [facility] [id number] [address] [place] [phone] Jan, IMMUNIZATIONS No Known Immunizations SOCIAL HISTORY [...]
--- OUTSIDE RECORDS SUMMARY | 2020-06-13 15:55 | XMS REPORT ---
Author Author Jah Durant Doctor Organization [facility] Address Unknown Phone Unavailable Care Team Providers Care Loan Review Analyst Name Role Phone Migration, Doctor Unavailable Unavailable PROBLEMS Type Condition ICD9-CM Code TRE74-ZL Code Onset Dates Condition S tatus SNOMED Code Problem Neuropathy G62.9 Active 402759897 Problem Chronic pain G89.29 Active 2943016 1 Problem Overactive bladder N32.81 Active 2 89394056 Problem Hypothyroid E03.9 Active 46468350 Problem Gastroesophageal reflux disease with esophagitis K 21.0 Active 848903020 Problem Mixed hyperlipidemia E78.2 Active 995060988 Problem Type 2 diabetes mellitus with hyperglycemia E11.65 Active 56599806 Problem Essential (primary) hypertension I10 Active 45006064 Problem Anxiety disorder, unspecified type F41.9 Active 239902349 Problem correction (current) use of insulin Z79.4 Active 107337270 Problem 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.4 Active 986303346 Problem Ulcer of foot, limited to breakdown of skin, uns pecified laterality L97.501 Active 23664132 Problem Irritable bowel syndrome with diarrhea K58.0 Active 708654750 Problem Gastroparesis K31.84 Active 299665 006 Problem 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 Active 297519759 Problem Chronic obstructive pulmonary disease, unspecified COPD ty pe J44.9 Active 71066412 Problem Major depressive disorder, recurrent, in full remission F33.42 Active 03850413 ALLERGIES No Information ENCOUNTERS Encounter Location Date Diagnosis [facility] [place] [address] [facility] [id number] [address] [place] [phone] March, Ulcer of foot, limited to br eakdown of skin, unspecified laterality L97.501 [facility] [place] [address] [facility] [id number] [address] [place] [id number] March, Chronic pain G89.29 [facility] [place] [address] [facility] [id number] [address] [place] [phone] Feb, Chronic pain G89.29 [facility] [place] [address] [place] [id number] [address] [place] [id number] 13 Jan, 2020 Type 2 diabetes mellitus wit h hyperglycemia E11.65 ; correction (current) use of insulin Z79.4 and Hyperkalemia E87.5 [place] [address] [id number] 10 Jan, 2020 Type 2 diabetes mellitus wit h diabetic autonomic (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 ; Hypothyroid E03.9 ; Dyshydrosis L30.1 and Irritable bowel syndrome with diarrhea K58.0 [place] [address] [address] 05 Jan, 2020 Chronic pain G89.29 [place] [address] [address] 10 Dec, 2019 Chronic pain G89.29 [place] [address] [place] [id number] [address] [place] [phone] Dec, [place] [address] [address] Dec, [place] [address] [address] Nov, Chronic pain G89.29 [place] [address] [place] [id number] [address] [place] [phone] Oct, Chronic pain G89.29 [place] [address] [place] [id number] [address] [place] [phone] Sep, Chronic pain G89.29 [place] [address] [place] [id number] [place] [id number] Sep, Type 2 diabetes mellitus wit h diabetic autonomic (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 ; Irritable bowel syndrome with diarrhea K58.0 ; Essential (primary) hypertension I10 and Encounter for immunization Z23 [place] [address] [place] [id number] [place] [phone] Aug, Chronic pain G89.29 [facility] [place] [address] [id number] [address] [place] [phone] Aug, [facility] [place] [address] [facility] [id number] [address] [place] [id number] Jul, Chronic pain G89.29 [facility] [place] [address] [facility] [id number] [address] [place] [id number] Jun, Other chronic pain G89.29 [facility] [place] [address] [id number] [address] [place] [phone] Jun, [facility] [place] [address] [facility] [id number] [address] [place] [id number] Jun, Chronic pain G89.29 [facility] [place] [address] [facility] [id number] [address] [place] [phone] Jun, Neuropathy G62.9 [facility] [place] [address] [facility] [id number] [address] [place] [phone] Jun, Encounter for Medicare annua l wellness exam Z00.00 ; Type 2 diabetes mellitus with hyperglycemia E11.65 ; Mixed hyperlipidemia E78.2 ; Hypothyroid E03.9 ; Gastroesophageal reflux disease with esophagitis K21.0 ; Essential (primary) hypertension I10 ; Major depressive disorder, recurrent, in full remission F33.42 ; Chronic obstructive pulmonary disease, unspecified COPD type J44.9 ; Neuropathy G62.9 and Encounter for immunization Z23 [facility] [place] [address] [facility] [id number] [address] [place] [phone] Jun, Irritable bowel syndrome wit h diarrhea K58.0 [facility] [place] [address] [facility] [id number] [address] [place] [id number] May, Chronic pain G89.29 [facility] [place] [address] [facility] [id number] [address] [place] [id number] May, Type 2 diabetes mellitus wit h hyperglycemia E11.65 and Neuropathy G62.9 [facility] [place] [address] [facility] [id number] [address] [place] [id number] May, Chronic pain G89.29 [facility] [place] [address] [facility] [id number] [address] [place] [phone] Apr, Poison maryam dermatitis L23.7 [facility] [place] [address] [facility] [id number] [address] [place] [id number] Apr, Chronic pain G89.29 [facility] [place] [address] [facility] [id number] [address] [place] [id number] March, Type 2 diabetes mellitus wit h hyperglycemia E11.65 [facility] [place] [address] [facility] [id number] [address] [place] [id number] March, Chronic pain G89.29 [facility] [place] [address] [facility] [id number] [address] [place] [id number] March, [id number] [place] [phone] Feb, [facility] [place] [address] [facility] [id number] [address] [place] [phone] Feb, Other chronic pain G89.29 an d Chronic pain G89.29 [facility] [place] [address] [facility] [id number] [address] [place] [phone] Jan, Mixed hyperlipidemia E78.2 [facility] [place] [address] [facility] [id number] [address] [place] [id number] Jan, Chronic pain G89.29 [facility] [place] [address] [facility] [id number] [address] [place] [phone] Jan, Type 2 diabetes mellitus wit h hyperglycemia E11.65 ; Mixed hyperlipidemia E78.2 ; correction 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 Z79.4 ; Acquired hypothyroidism E03.9 and Essential (primary) hypertension I10 [facility] [place] [address] [facility] [id number] [address] [place] [id number] Dec, Chronic pain G89.29 [facility] [place] [address] [facility] [id number] [address] [place] [id number] Nov, Chronic pain G89.29 [facility] [place] [address] [facility] [id number] [address] [place] [phone] Nov, [facility] [place] [address] [facility] [id number] [address] [place] [id number] Oct, Chronic pain G89.29 [facility] [place] [address] [place] [id number] [address] [place] [phone] Oct, [facility] [place] [address] [facility] [id number] [address] [place] [id number] Sep, [facility] [place] [address] [place] [id number] [place] [id number] Sep, Type 2 diabetes mellitus wit h hyperglycemia E11.65 [place] [address] [place] [id number] [address] [place] [id number] Sep, Chronic pain G89.29 [facility] [place] [address] [place] [id number] [address] [place] [id number] Sep, [facility] [place] [address] [place] [id number] [place] [id number] Sep, Type 2 diabetes mellitus wit h hyperglycemia E11.65 ; Irritable bowel syndrome with diarrhea K58.0 ; Gastroparesis K31.84 ; 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 and Dermatitis L30.9 [facility] [place] [address] [facility] [id number] [address] [place] [phone] Aug, Chronic pain G89.29 [facility] [place] [address] [place] [id number] [address] [place] [id number] Jul, Chronic pain G89.29 [facility] [place] [address] [place] [id number] [address] [place] [id number] Jun, Type 2 diabetes mellitus wit h hyperglycemia E11.65 ; Neuropathy G62.9 ; Recurrent major depressive disorder, in partial remission F33.41 ; Chronic pain G89.29 and Hypertriglyceridemia E78.1 [place] [address] [facility] [id number] [address] [place] [phone] Jun, Hypothyroid E03.9 [place] [address] [facility] [id number] [address] [place] [phone] 16 Jun, 2018 Major depressive disorder, r ecurrent episode, moderate F33.1 and Anxiety disorder, unspecified type F41.9 [place] [address] [address] Jun, [place] [address] [phone] Jun, Type 2 diabetes mellitus wit h hyperglycemia E11.65 ; 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.4 ; Recurrent major depressive disorder, in partial remission F33.41 ; Hypothyroid E03.9 ; Candidal dermatitis B37.2 and Weakness generalized R53.1 [place] [address] [place] [id number] [address] [place] [phone] May, [place] [address] [place] [id number] [address] [place] [phone] May, [place] [address] [place] [id number] [address] [place] [phone] May, [place] [address] [place] [id number] [address] [place] [id number] May, Generalized abdominal pain R 10.84 and Candidal dermatitis B37.2 [place] [address] [place] [id number] [address] [place] [phone] May, [place] [address] [place] [id number] [address] [place] [phone] May, [place] [address] [place] [id number] [address] [place] [phone] May, Nodular radiologic density R 93.8 ; Weight loss, unintentional R63.4 and Pulmonary emphysema, unspecified emphysema type J43.9 [place] [address] [place] [id number] [address] [place] [id number] 10 May, 2018 Chronic pain G89.29 [facility] [place] [address] [facility] [id number] [address] [place] [phone] 09 May, 2018 Syncope and collapse R55 ; C hronic fatigue R53.[address] lung screening R91.8 [facility] [place] [address] [facility] [id number] [address] [place] [phone] May, [facility] [place] [address] [facility] [id number] [address] [place] [phone] Apr, Chronic fatigue R53.82 ; Abn ormal chest CT R93.8 ; Elevated erythrocyte sedimentation rate R70.0 ; Hypothyroid E03.9 and Recurrent major depressive disorder, in partial remission F33.41 [facility] [place] [address] [place] [id number] [address] [place] [id number] Apr, Hypothyroid E03.9 [facility] [place] [address] [facility] [id number] [address] [place] [id number] Apr, Depression F32.9 [facility] [place] [address] [facility] [id number] [address] [place] [phone] Apr, [facility] [place] [address] [place] [id number] [address] [place] [phone] March, [facility] [place] [address] [place] [id number] [address] [place] [id number] March, Hypothyroid E03.9 [facility] [place] [address] [facility] [id number] [address] [place] [phone] March, Diabetes mellitus E11.9 and Hypothyroid E03.9 [facility] [place] [address] [facility] [id number] [address] [place] [phone] March, Diabetes mellitus E11.9 [facility] [place] [address] [facility] [id number] [address] [place] [phone] March, Hypothyroid E03.9 and Elevat ed liver enzymes R74.8 [place] [address] [facility] [id number] [address] [place] [id number] March, Type 2 diabetes mellitus wit h hyperglycemia E11.65 ; correction 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 Z79.4 ; Pulmonary emphysema, unspecified emphysema type J43.9 ; Hypothyroid E03.9 ; Neuropathy G62.9 ; Mixed hyperlipidemia E78.2 ; Chronic pain G89.29 ; Gastroesophageal reflux disease with esophagitis K21.0 ; Irritable bowel syndrome with diarrhea K58.0 ; Overactive bladder N32.81 and Recurrent major depressive disorder, in partial remission F33.41 [place] [address] [facility] [id number] [address] [place] [id number] Feb, Chronic pain G89.29 [place] [address] [facility] [id number] [address] [place] [phone] Feb, Type 2 diabetes mellitus wit h hyperglycemia E11.65 and Skin lesion of scalp L98.9 [place] [address] [facility] [id number] [address] [place] [phone] Feb, [place] [address] [facility] [id number] [address] [place] [phone] Jan, Type 2 diabetes mellitus wit h hyperglycemia E11.65 ; correction 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 Z79.4 ; Essential (primary) hypertension I10 ; Pulmonary emphysema, unspecified emphysema type J43.9 ; Chronic pain G89.29 ; Controlled substance agreement signed Z79.899 ; Hypothyroid E03.9 ; Neuropathy G62.9 ; Gastroesophageal reflux disease with esophagitis K21.0 ; Overactive bladder N32.81 ; Depression F32.9 and Irritable bowel syndrome with diarrhea K58.0 [place] [address] [facility] [id number] [address] [place] [phone] Jan, [place] [address] [facility] [id number] [address] [place] [phone] Jan, Controlled substance agreeme nt signed Z79.899 [place] [address] [facility] [id number] [address] [place] [id number] 08 Feb, 2018 Type 2 diabetes mellitus wit h hyperglycemia E11.65 ; Controlled substance agreement signed Z79.899 ; 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.4 ; Essential (primary) hypertension I10 ; Hypothyroid E03.9 ; Neuropathy G62.9 ; Depression F32.9 ; Mixed hyperlipidemia E78.2 ; Irritable bowel syndrome with diarrhea K58.0 ; Gastroesophageal reflux disease with esophagitis K21.0 ; Thrombocytosis D47.3 ; Current non-adherence to medical treatment Z91.19 and Overweight (BMI 25.0-29.9) E66.3 [facility] [place] [address] [id number] [address] [place] [phone] 02 Dec, 2018 Controlled substance agreeme nt signed Z79.899 [place] [address] [facility] [id number] [address] [place] [phone] Nov, Type 2 diabetes mellitus wit h hyperglycemia E11.65 and Current non- adherence to medical treatment Z91.19 [place] [id number] [id number] [address] [place] [phone] Nov, [place] [address] [id number] [address] [place] [phone] Nov, Chronic pain G89.29 [place] [address] [facility] [id number] [address] [place] [phone] Nov, [place] [address] [facility] [id number] [address] [place] [phone] Nov, Hypothyroid E03.9 [place] [id number] [id number] [address] [place] [phone] Nov, Hypothyroid E03.9 [place] [address] [facility] [id number] [address] [place] [phone] Nov, Pulmonary emphysema, unspeci fied emphysema type J43.9 and Irritable bowel syndrome with diarrhea K58.0 [place] [address] [id number] [address] [place] [phone] Oct, [place] [address] [facility] [id number] [address] [place] [phone] Oct, [place] [address] [facility] [id number] [address] [place] [phone] Oct, [place] [address] [facility] [id number] [address] [place] [phone] Oct, [place] [address] [address] Oct, Chronic pain G89.29 [place] [address] [place] [id number] [place] [phone] Oct, Diabetes mellitus E11.9 ; De pression F32.9 ; Mixed hyperlipidemia E78.2 ; Hypotension, unspecified hypotension type I95.9 ; Pulmonary emphysema, unspecified emphysema type J43.9 and Weight loss, unintentional R63.4 [place] [address] [address] Oct, Chronic pain G89.29 [place] [address] [address] Sep, Chronic pain G89.29 [place] [address] [address] Sep, Hypothyroid E03.9 and Diabet es mellitus E11.[address] [address] Aug, Type 2 diabetes mellitus wit h hyperglycemia E11.65 ; correction 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 Z79.4 ; Essential (primary) hypertension I10 ; Hypothyroid E03.9 ; Neuropathy G62.9 ; Chronic pain G89.29 ; Mixed hy perlipidemia E78.2 and Encounter for immunization Z23 [place] [address] [place] [id number] [address] [place] [phone] Aug, Chronic pain G89.29 [place] [address] [address] Aug, Overactive bladder N32.81 ; Diabetes mellitus E11.9 and Chronic pain G89.29 [facility] [place] [address] [facility] [id number] [address] [place] [phone] Jul, [facility] [place] [address] [facility] [id number] [address] [place] [phone] Jun, [facility] [place] [address] [facility] [id number] [address] [place] [phone] Jun, [facility] [place] [address] [facility] [id number] [address] [place] [phone] Jun, Hypothyroid E03.9 [facility] [place] [address] [facility] [id number] [address] [place] [phone] Jun, Diabetes mellitus E11.9 ; Hy pothyroid E03.9 ; Neuropathy G62.9 ; Chronic pain G89.29 and Neck mass R22.1 [facility] [place] [address] [facility] [id number] [address] [place] [phone] Apr, [facility] [place] [address] [facility] [id number] [address] [place] [phone] Apr, Acute cystitis without hemat uria N30.00 [facility] [place] [address] [facility] [id number] [address] [place] [phone] March, [facility] [place] [address] [facility] [id number] [address] [place] [phone] March, [facility] [place] [address] [facility] [id number] [address] [place] [phone] March, Near syncope R55 [facility] [place] [address] [facility] [id number] [address] [place] [phone] Feb, [facility] [place] [address] [facility] [id number] [address] [place] [id number] Feb, Chronic pain G89.29 [facility] [place] [address] [facility] [id number] [address] [place] [phone] Feb, [facility] [place] [id number] [place] [phone] Feb, [facility] [place] [address] [facility] [id number] [address] [place] [phone] Jan, Chronic pain G89.29 [facility] [place] [address] [place] [id number] [address] [place] [phone] Jan, [facility] [place] [address] [id number] 16 Jan, 2017 [facility] [place] [address] [id number] [address] [place] [phone] 14 Jan, 2017 Diabetes mellitus E11.9 ; Hy pothyroid E03.9 ; GERD (gastroesophageal reflux disease) K21.9 ; Insomnia G47.00 ; Functional 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 ; Neuropathy G62.9 ; Depression F32.9 ; Chronic pain G89.29 ; Irritable bowel syndrome with diarrhea K58.0 ; Overactive bladder N32.81 ; Mixed hyperlipidemia E78.2 and Bronchitis J40 [facility] [place] [id number] [place] [phone] Dec, [facility] [place] [address] [id number] [address] [place] [phone] Dec, [facility] [place] [id number] [place] [phone] Dec, [facility] [place] [address] [place] [phone] Dec, [facility] [place] [address] [id number] [address] [place] [phone] Dec, Chronic pain G89.29 [facility] [place] [address] [id number] [address] [place] [phone] Dec, [facility] [place], [facility] [address] [id number] [address] [place] [address] Dec, [facility] [place] [address] [id number] [address] [place] [address] 17 Dec, 2016 Type 2 diabetes mellitus wit h foot ulcer E11.621 [facility] [place] [address] [id number] [address] [place] [address] 17 Dec, 2016 Type 2 diabetes mellitus wit h foot ulcer E11.621 [address] [id number] [id number] [address] [place] [address] 14 Dec, 2016 HTN (hypertension) I10 ; Dep ression F32.9 ; Type 2 diabetes mellitus with foot ulcer E11.621 ; Functional 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 ; Irritable bowel syndrome with diarrhea K58.0 ; Chronic pain G89.29 ; Insomnia G47.00 ; Overactive bladder N32.81 ; Mixed hyperlipidemia E78.2 ; Gastroesophageal reflux disease with esophagitis K21.0 and Acquired hypothyroidism E03.9 [address] [address] [address] [address] Nov, [place] [address] [address] Oct, [place] [address] [address] Oct, [place] [address] [address] Oct, [address] [address] [address] Sep, Functional 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 ; HTN (hypertension) I10 ; Diabetes mellitus E11.9 ; Depression F32.9 ; Overactive bladder N32.81 ; Mixed hyperlipidemia E78.2 ; Gastroesophageal reflux disease without esophagitis K21.9 ; Chronic pain G89.29 ; Insomnia G47.00 and Acquired hypothyroidism E03.9 [place] [address] [address] 04 Sep, 2016 [place] [address] [address] 11 Aug, 2016 Encounter for immunization Z 23 [place] [address] [id number] [address] [place] [address] Aug, [place] [address] [address] Jul, [place] [address] [address] Jun, Type 2 diabetes mellitus wit hout complications E11.9 ; HTN (hypertension) I10 ; Hypothyroid E03.9 ; Neuropathy G62.9 ; Depression F32.9 ; Chronic pain G89.29 ; GERD (gastroesophageal reflux disease) K21.9 ; Insomnia G47.00 ; Overactive bladder N32.81 ; Mixed hyperlipidemia E78.2 ; Diarrhea of infectious origin A09 and Environmental allergies Z91.09 [place] [address] [address] Apr, [place] [address] [address] March, Hypothyroidism, unspecified E03.9 and Mixed hyperlipidemia E78.2 [place] [address] [address] March, Diabetes mellitus E11.9 ; HT N (hypertension) I10 ; Hypothyroid E03.9 ; Depression F32.9 ; Overactive bladder N32.81 ; Other chronic pain G89.29 ; Lumbago with sciatica, unspecified side M54.40 ; Environmental allergies Z91.09 and Gastroesophageal reflux disease, esophagitis presence not specified K21.9 [place] [address] [id number] [address] [place] [address] March, [place] [address] [address] Jan, HTN (hypertension) I10 ; Hyp othyroid E03.9 ; Neuropathy G62.9 ; Diabetes mellitus E11.9 ; Chronic pain G89.29 ; GERD (gastroesophageal reflux disease) K21.9 ; Overactive bladder N32.81 and Depression F32.9 [place] [address] [id number] [address] [place] [address] Dec, Ear pain, left H92.02 ; HTN (hypertension) I10 ; Hypothyroid E03.9 ; Neuropathy G62.9 ; Diabetes mellitus E11.9 ; Depression F32.9 ; GERD (gastroesophageal reflux disease) K21.9 ; Insomnia G47.00 and Overactive bladder N32.81 [address] [address] [address] Nov, Overactive bladder N32.81 an d Chronic pain G89.29 [place] [address] [address] Nov, Kidney failure N19 [place] [address] [address] Nov, [place] [address] [address] Nov, [place] [address] [address] Nov, Diabetes mellitus E11.9 ; De pression F32.9 ; Chronic pain G89.29 ; GERD (gastroesophageal reflux disease) K21.9 ; Insomnia G47.00 ; HTN (hypertension) I10 ; Hypothyroid E03.9 ; COPD (chronic obstructive pulmonary disease) J44.9 ; Bladder incontinence R32 and Incontinence R32 [place] [address] [id number] [address] [place] [address] Sep, Type 2 diabetes mellitus wit h foot ulcer E11.621 and Chromosomal abnormality, 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 [place] [address] [id number] [address] [place] [address] Sep, [place] [address] [address] Aug, [place] [address] [address] Aug, [facility] [address] [address] Aug, HTN (hypertension) I10 ; Enc ounter for immunization Z23 ; Hypothyroid E03.9 ; Neuropathy G62.9 ; Diabetes mellitus E11.9 ; Depression F32.9 ; Chronic pain G89.29 ; GERD (gastroesophageal reflux disease) K21.9 ; Insomnia G47.00 and COPD (chronic obstructive pulmonary disease) J44.[address] [address] Jun, [address] [address] Jun, [address] [address] May, Essential hypertension, ivis gn 401.1 ; Unspecified hypothyroidism 244.9 ; Insomnia, unspecified 780.52 ; Shortness of breath 786.05 ; Depression 311 ; COPD (chronic obstructive pulmonary disease) 496 ; GERD (gastroesophageal reflux disease) 530.81 and Diabetes 1.5, 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 [address] May, [address] [address] May, [address] [address] May, Shortness of breath 786.05 ; Essential hypertension, benign 401.1 ; Diabetes mellitus 250.00 ; Hyperlipidemia 272.4 ; Hypothyroid 244.9 ; Insomnia 780.52 and Cough 786.[address] [address] Apr, [address] [address] March, Shortness of breath 786.05 ; Nausea with vomiting 787.01 ; Essential hypertension, benign 401.1 ; Diabetes mellitus 250.00 ; Hyperlipidemia 272.4 and Hypothyroid 244.9 [facility] [address] [id number] [address] [place] [address], [place] [address] 14 Feb, 2015 [facility] [address] [id number] [address] [place] [address], [place] [address] Feb, [facility] [address] [id number] [address] [place] [address], [place] [address] Jan, [facility] [address] [id number] [address] [place] [address], [place] [address] Jan, [facility] [address] [id number] [address] [place] [address], [place] [address] Jan, [facility] [address] [id number] [address] [place] [address], [place] [address] Jan, [facility] [address] [id number] [address] [place] [address], [place] [address] Jan, [facility] [address] [id number] [address] [place] [address] Jan, [facility] [address] [id number] [address] [place] [address], [place] [address] Jan, [facility] [address] [id number] [address] [place] [address] Jan, [facility] [address] [id number] [address] [place] [address], [place] [address] Jan, [facility] [address] [id number] [address] [place] [address] Jan, [facility] [address] [id number] [address] [place] [address], [place] [address] Dec, [facility] [address] [id number] [address] [place] [address] Dec, [facility] [address] [id number] [address] [place] [address], [place] [address] Dec, [facility] [address] [id number] [address] [place] [address], [place] [address] Dec, 2014 [facility] [address] [id number] [address] [place] [address], [place] [address] Dec, 2014 [facility] [address] [id number] [address] [place] [address], [place] [address] Dec, 2014 [facility] [address] [id number] [address] [place] [address], [place] [address] Dec, 2014 [facility] [address] [id number] [address] [place] [address], [place] [address] Dec, 2014 [facility] [address] [id number] [address] [place] [address], [place] [address] Dec, 2014 [facility] [address] [id number] [address] [place] [address], [place] [address] Dec, 2014 [facility] [address] [id number] [address] [place] [address], [place] [address] Oct, [facility] [address] [id number] [address] [place] [address], [place] [address] Oct, [facility] [address] [id number] [address] [place] [address], [place] [address] Oct, [facility] [address] [id number] [address] [place] [address], [place] [address] Oct, [facility] [address] [id number] [address] [place] [address], [place] [address] Oct, [facility] [address] [id number] [address] [place] [address], [place] [address] Oct, [facility] [address] [id number] [address] [place] [address], [place] [address] Oct, [facility] [address] [id number] [address] [place] [address], [place] [address] Oct, [facility] [address] [id number] [address] [place] [address], [place] [address] Oct, [facility] [address] [id number] [address] [place] [address], [place] [address] Oct, [facility] [address] [id number] [address] [place] [address], [place] [address] Oct, [facility] [address] [id number] [address] [place] [address], [place] [address] Oct, [facility] [address] [id number] [address] [place] [address], [place] [address] Oct, [facility] [address] [id number] [address] [place] [address], [place] [address] Oct, [facility] [address] [id number] [address] [place] [address], [place] [address] Sep, [facility] [address] [id number] [address] [place] [address], [place] [address] Sep, [facility] [address] [id number] [address] [place] [address], [place] [address] Sep, [facility] [address] [id number] [address] [place] [address], [place] [address] Sep, [facility] [address] [id number] [address] [place] [address], [place] [address] Sep, [facility] [address] [id number] [address] [place] [address], [place] [address] Sep, [facility] [address] [id number] [address] [place] [address], [place] [address] Sep, [facility] [address] [id number] [address] [place] [address], [place] [address] Sep, [facility] [address] [id number] [address] [place] [address], [place] [address] Sep, [facility] [address] [id number] [address] [place] [address], [place] [address] Aug, [facility] [address] [id number] [address] [place] [address], [place] [address] 20 Aug, 2014 [facility] [address] [id number] [address] [place] [address], [place] [address] 17 Aug, 2014 [facility] [address] [id number] [address] [place] [address], [place] [address] 17 Aug, 2014 [facility] [address] [id number] [address] [place] [address], [place] [address] 16 Aug, 2014 [facility] [address] [id number] [address] [place] [address], [place] [address] Aug, [facility] [address] [id number] [address] [place] [address], [place] [address] Aug, [facility] [address] [id number] [address] [place] [address], [place] [address] Aug, [facility] [address] [id number] [address] [place] [address], [place] [address] Aug, [facility] [address] [id number] [address] [place] [address], [place] [address] 29 Sep, 2013 [facility] [address] [id number] [address] [place] [address], [place] [address] 29 Sep, 2013 [facility] [address] [id number] [address] [place] [address], [place] [address] 25 Sep, 2013 [facility] [address] [id number] [address] [place] [address], [place] [address] 25 Sep, 2013 [facility] [address] [id number] [address] [place] [address], [place] [address] 25 Sep, 2013 [facility] [address] [id number] [address] [place] [address], [place] [address] 25 Jul, 2013 [facility] [address] [id number] [address] [place] [address], [place] [address] 25 Jul, 2013 [facility] [address] [id number] [address] [place] [address], [place] [address] 25 Jul2013 [facility] [address] [id number] [facility] [place] [address] Jul, [facility] [address] [id number] [facility] [place] [address] Jul, [facility] [address] [id number] [facility] [place] [address] Jun, [facility] [address] [id number] [facility] [place] [address] Jun, [facility] [address] [id number] [facility] [place] [address] Jun, [facility] [address] [id number] [address] [place] [address], [place] [address] Jun, [facility] [address] [id number] [address] [place] [address], [place] [address] Jun, [facility] [address] [id number] [address] [place] [address], [place] [address] Jun, [facility] [address] [id number] [address] [place] [address], [place] [address] Jun, [facility] [address] [id number] [address] [place] [address], [place] [address] Jun, [facility] [address] [id number] [address] [place] [address], [place] [address] Jun, [facility] [address] [id number] [address] [place] [address], [place] [address] Jun, [facility] [address] [id number] [address] [place] [address], [place] [address] Jun, [facility] [address] [id number] [address] [place] [address], [place] [address] Jun, [facility] [address] [id number] [address] [place] [address], [place] [address] May, [facility] [address] [id number] [address] [place] [address], [place] [address] May, [facility] [address] [id number] [facility] [place] [address] May, [facility] [address] [id number] [address] [place] [address], [place] [address] May, [facility] [address] [id number] [address] [place] [address], [place] [address] May, [facility] [address] [id number] [address] [place] [address], [place] [address] May, [facility] [address] [id number] [address] [place] [address], [place] [address] March, [facility] [address] [id number] [address] [place] [address], [place] [address] March, [facility] [address] [id number] [address] [place] [address], [place] [address] March, [facility] [address] [id number] [address] [place] [address], [place] [address] March, [facility] [address] [id number] [address] [place] [address], [place] [address] March, [facility] [address] [id number] [address] [place] [address], [place] [address] March, [facility] [address] [id number] [address] [place] [address], [place] [address] Feb, [facility] [address] [id number] [address] [place] [address], [place] [address] Feb, [facility] [address] [id number] [address] [place] [address], [place] [address] Feb, [facility] [address] [id number] [address] [place] [address], [place] [address] Feb, [facility] [address] [id number] [address] [place] [address], [place] [address] Jan, [facility] [address] [id number] [facility] [place] [address] 31 Jan, 2014 [facility] [address] [id number] [address] [place] [address], [place] [address] Jan, [facility] [address] [id number] [facility] [place] [address] Jan, [facility] [address] [id number] [address] [place] [address], [place] [address] Jan, [facility] [address] [id number] [address] [place] [address], [place] [address] Jan, [facility] [address] [id number] [address] [place] [address], [place] [address] Jan, [facility] [address] [id number] [address] [place] [address], [place] [address] Jan, [facility] [address] [id number] [address] [place] [address], [place] [address] Jan, [facility] [address] [id number] [address] [place] [address], [place] [address] Jan, [facility] [address] [id number] [address] [place] [address], [place] [address] 05 Jan, 2014 [facility] [address] [id number] [address] [place] [address], [place] [address] Jan, [facility] [address] [id number] [address] [place] [address], [place] [address] Dec, [facility] [address] [id number] [address] [place] [address], [place] [address] Dec, [facility] [address] [id number] [address] [place] [address], [place] [address] Dec, [facility] [address] [id number] [address] [place] [address], [place] [address] Dec, [facility] [address] [id number] [address] [place] [address], [place] [address] Dec, [facility] [address] [id number] [address] [place] [address], [place] [address] Dec, [facility] [address] [id number] [address] [place] [address], [place] [address] Nov, [facility] [address] [id number] [address] [place] [address], [place] [address] Nov, [facility] [address] [id number] [address] [place] [address], [place] [address] Oct, [facility] [address] [id number] [address] [place] [address], [place] [address] Oct, [facility] [address] [id number] [address] [place] [address], [place] [address] Oct, [facility] [address] [id number] [address] [place] [address], [place] [address] Oct, [facility] [address] [id number] [address] [place] [address], [place] [address] Oct, [facility] [address] [id number] [address] [place] [address], [place] [address] Oct, [facility] [address] [id number] [address] [place] [address], [place] [address] Sep, [facility] [address] [id number] [address] [place] [address], [place] [address] Sep, [facility] [address] [id number] [address] [place] [address] Sep, [facility] [address] [id number] [address] [place] [address], [place] [address] Sep, [facility] [address] [id number] [address] [place] [address], [place] [address] Aug, [facility] [address] [id number] [address] [place] [address], [place] [address] Aug, [facility] [address] [id number] [address] [place] [address], [place] [address] 08 Aug, 2013 [facility] [address] [id number] [address] [place] [address], [place] [address] 17 Jul, 2013 [facility] [address] [id number] [address] [place] [address], [place] [address] 14 Jul, 2013 [facility] [address] [id number] [address] [place] [address], [place] [id number] 04 Jul, 2013 [facility] [address] [id number] [address] [place] [address], [place] [id number] Jun, [facility] [address] [id number] [address] [place] [address], [place] [address] Jun, [facility] [address] [id number] [address] [place] [address], [place] [address] Jun, [facility] [address] [id number] [address] [place] [address], [place] [id number] Apr, [facility] [address] [id number] [address] [place] [address], [place] [id number] Apr, [facility] [address] [id number] [address] [place] [address], [place] [id number] March, [facility] [address] [id number] [address] [place] [address], [place] [address] March, [facility] [address] [id number] [address] [place] [address], [place] [id number] March, [facility] [address] [id number] [address] [place] [address], [place] [address] March, [facility] [address] [id number] [address] [place] [address], [place] [address] Feb, [facility] [address] [id number] [address] [place] [address], [place] [address] Jan, [facility] [address] [id number] [address] [place] [address], [place] [address] Dec, [facility] [address] [id number] [address] [place] [address], [place] [id number] 08 Dec, 2012 [facility] [address] [id number] [address] [place] [address], [place] [id number] Dec, [facility] [address] [id number] [address] [place] [address], [place] [id number] Nov, [facility] [address] [id number] [address] [place] [address], [place] [address] Oct, [facility] [address] [id number] [address] [place] [address], [place] [address] Oct, [facility] [address] [id number] [address] [place] [address], [place] [address] Sep, [facility] [address] [id number] [address] [place] [address], [place] [id number] Sep, [facility] [address] [id number] [address] [place] [id number] Sep, [facility] [address] [id number] [address] [place] [address], [place] [id number] Sep, [facility] [address] [id number] [address] [place] [id number] Sep, [facility] [address] [id number] [address] [place] [id number] Sep, [facility] [address] [id number] [address] [place] [id number] Sep, [facility] [address] [id number] [address] [place] [address], [place] [id number] Aug, [facility] [address] [id number] [address] [place] [id number] Aug, [facility] [address] [id number] [address] [place] [id number] Aug, [facility] [address] [id number] [address] [place] [id number] Aug, [facility] [address] [id number] [address] [place] [address], [place] [address] Aug, [facility] [address] [id number] [address] [place] [address], [place] [id number] Aug, [facility] [address] [id number] [address] [place] [address], [place] [address] Aug, [facility] [address] [id number] [address] [place] [address], [place] [address] Aug, [facility] [address] [id number] [address] [place] [address], [place] [address] Jul, [facility] [address] [id number] [address] [place] [address], [place] [id number] Jul, [facility] [address] [id number] [address] [place] [address], [place] [id number] Jun, [facility] [address] [id number] [address] [place] [address], [place] [address] May, [facility] [address] [id number] [address] [place] [address], [place] [address] Apr, [facility] [address] [id number] [address] [place] [address], [place] [address] Apr, [facility] [address] [id number] [address] [place] [address], [place] [address] Apr, [facility] [address] [id number] [place] [address], [place] [id number] March, [facility] [address] [id number] [address] [place] [address], [place] [id number] March, [facility] [address] [id number] [address] [place] [address], [place] [id number] March, [facility] [address] [id number] [address] [place] [address], [place] [id number] March, [facility] [address] [id number] [address] [place] [address], [place] [id number] March, [facility] [address] [id number] [address] [place] [address], [place] [id number] March, [facility] [address] [id number] [address] [place] [address], [place] [id number] March, [facility] [address] [id number] [address] [place] [address], [place] [id number] Jan, [facility] [address] [id number] [address] [place] [address], [place] [id number] Jan, [facility] [address] [id number] [address] [place] [address], [place] [id number] Jan, [facility] [address] [id number] [address] [place] [address], [place] [id number] Jan, [facility] [address] [id number] [address] [place] [address], [place] [id number] Jan, [facility] [address] [id number] [address] [place] [address], [place] [id number] Dec, [facility] [address] [id number] [address] [place] [address], [place] [id number] Dec, [facility] [address] [id number] [address] [place] [address], [place] [id number] Nov, [facility] [address] [id number] [address] [place] [address], [place] [id number] Nov, [facility] [address] [id number] [address] [place] [address], [place] [id number] Nov, [facility] [address] [id number] [address] [place] [address], [place] [id number] Nov, [facility] [address] [id number] [address] [place] [address], [place] [id number] Oct, [facility] [address] [id number] [address] [place] [address], [place] [id number] 06 Oct, 2011 [facility] [address] [id number] [address] [place] [address], [place] [id number] 14 Sep, 2011 [facility] [address] [id number] [address] [place] [address], [place] [id number] 10 Sep, 2011 [facility] [address] [id number] [address] [place] [address], [place] [id number] 10 Sep, 2011 [facility] [address] [id number] [address] [place] [address], [place] [id number] 11 May, 2011 [facility] [address] [id number] [address] [place] [address], [place] [id number] 20 Nov, 2010 [facility] [address] [id number] [address] [place] [address], [place] [id number] 29 Oct, 2010 [facility] [address] [id number] [address] [place] [address], [place] [id number] 14 Oct, 2010 [facility] [address] [id number] [address] [place] [address], [place] [id number] 08 Oct, 2010 [facility] [address] [id number] [address] [place] [address], [place] [id number] 15 Sep, 2010 [facility] [address] [id number] [address] [place] [address], [place] [id number] 02 Sep, 2010 [facility] [address] [id number] [address] [place] [address], [place] [id number] Aug, [facility] [address] [id number] [address] [place] [address], [place] [id number] March, [facility] [address] [id number] [address] [place] [address], [place] [id number] 17 Oct, 2009 [facility] [address] [id number] [address] [place] [address], [place] [id number] 17 Oct, 2009 [facility] [address] [id number] [address] [place] [address], [place] [id number] 10 Oct, 2009 [facility] [address] [id number] [address] [place] [id number] Oct, [facility] [place] [address] [facility] [id number] [address] [place] [id number] Sep, [facility] [place] [address] [facility] [id number] [address] [place] [id number] Sep, [facility] [place] [address] [facility] [id number] [address] [place] [id number] Sep, [facility] [place] [address] [facility] [id number] [address] [place] [id number] Aug, [facility] [place] [address] [facility] [id number] [address] [place] [id number] Aug, [facility] [place] [address] [facility] [id number] [address] [place] [id number] Aug, [facility] [place] [address] [facility] [id number] [address] [place] [id number] Jan, IMMUNIZATIONS No Known Immunizations SOCIAL HISTORY [...]
--- OUTSIDE RECORDS SUMMARY | 2020-06-13 15:56 | XMS REPORT ---
Author Author Jah Durant Doctor Organization [facility] Address Unknown Phone Unavailable Care Team Providers Care Quality Control Lab Tech Name Role Phone Migration, Doctor Unavailable Unavailable PROBLEMS Type Condition ICD9-CM Code ZYB14-IW Code Onset Dates Condition S tatus SNOMED Code Problem Neuropathy G62.9 Active 887333868 Problem Chronic pain G89.29 Active 7716473 1 Problem Overactive bladder N32.81 Active 2 84004740 Problem Hypothyroid E03.9 Active 38655989 Problem Gastroesophageal reflux disease with esophagitis K 21.0 Active 699813742 Problem Mixed hyperlipidemia E78.2 Active 248542097 Problem Type 2 diabetes mellitus with hyperglycemia E11.65 Active 69753777 Problem Essential (primary) hypertension I10 Active 31467395 Problem Anxiety disorder, unspecified type F41.9 Active 935269097 Problem USP (current) use of insulin Z79.4 Active 545801173 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 Active 322720949 Problem Ulcer of foot, limited to breakdown of skin, uns pecified laterality L97.501 Active 73254528 Problem Irritable bowel syndrome with diarrhea K58.0 Active 093170618 Problem Gastroparesis K31.84 Active 288291 006 Problem 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 Active 464975020 Problem Chronic obstructive pulmonary disease, unspecified COPD ty pe J44.9 Active 40902303 Problem Major depressive disorder, recurrent, in full remission F33.42 Active [id number] ALLERGIES No Information ENCOUNTERS Encounter Location Date Diagnosis [facility] [address] [facility] [id number] [address] [place] [address] March, Ulcer of foot, limited to br eakdown of skin, unspecified laterality L97.501 [facility] [address] [facility] [id number] [address] [place] [id number] March, Chronic pain G89.29 [facility] [address] [facility] [id number] [address] [place] [address] Feb, Chronic pain G89.29 [facility] [address] [place] [id number] [address] [place] [phone] 13 Jan, 2020 Type 2 diabetes mellitus wit h hyperglycemia E11.65 ; USP (current) use of insulin Z79.4 and Hyperkalemia E87.5 [place] [address] [address] 10 Jan, 2020 Type 2 diabetes mellitus wit h diabetic autonomic (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 ; Hypothyroid E03.9 ; Dyshydrosis L30.1 and Irritable bowel syndrome with diarrhea K58.0 [place] [address] [address] 05 Jan, 2020 Chronic pain G89.29 [place] [address] [address] 10 Dec, 2019 Chronic pain G89.29 [place] [address] [place] [id number] [address] [place] [address] Dec, [place] [address] [address] Dec, [place] [address] [address] Nov, Chronic pain G89.29 [place] [address] [place] [id number] [address] [place] [address] Oct, Chronic pain G89.29 [place] [address] [place] [id number] [address] [place] [address] Sep, Chronic pain G89.29 [place] [address] [place] [id number] [place] [address] Sep, Type 2 diabetes mellitus wit h diabetic autonomic (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 ; Irritable bowel syndrome with diarrhea K58.0 ; Essential (primary) hypertension I10 and Encounter for immunization Z23 [place] [address] [place] [id number] [place] [address] Aug, Chronic pain G89.29 [facility] [address] [id number] [address] [place] [address] Aug, [facility] [address] [facility] [id number] [address] [place] [address] Jul, Chronic pain G89.29 [facility] [address] [facility] [id number] [address] [place] [address] Jun, Other chronic pain G89.29 [facility] [address] [id number] [address] [place] [phone] Jun, [facility] [address] [facility] [id number] [address] [place] [address] Jun, Chronic pain G89.29 [facility] [address] [facility] [id number] [address] [place] [address] Jun, Neuropathy G62.9 [facility] [address] [facility] [id number] [address] [place] [address] Jun, Encounter for Medicare annua l wellness exam Z00.00 ; Type 2 diabetes mellitus with hyperglycemia E11.65 ; Mixed hyperlipidemia E78.2 ; Hypothyroid E03.9 ; Gastroesophageal reflux disease with esophagitis K21.0 ; Essential (primary) hypertension I10 ; Major depressive disorder, recurrent, in full remission F33.42 ; Chronic obstructive pulmonary disease, unspecified COPD type J44.9 ; Neuropathy G62.9 and Encounter for immunization Z23 [facility] [address] [facility] [id number] [address] [place] [address] Jun, Irritable bowel syndrome wit h diarrhea K58.0 [facility] [address] [facility] [id number] [address] [place] [address] May, Chronic pain G89.29 [facility] [address] [facility] [id number] [address] [place] [address] May, Type 2 diabetes mellitus wit h hyperglycemia E11.65 and Neuropathy G62.9 [facility] [address] [facility] [id number] [address] [place] [phone] May, Chronic pain G89.29 [facility] [address] [facility] [id number] [address] [place] [address] Apr, Poison maryam dermatitis L23.7 [facility] [address] [facility] [id number] [address] [place] [address] Apr, Chronic pain G89.29 [facility] [address] [facility] [id number] [address] [place] [address] March, Type 2 diabetes mellitus wit h hyperglycemia E11.65 [facility] [address] [facility] [id number] [address] [place] [address] March, Chronic pain G89.29 [facility] [address] [facility] [id number] [address] [place] [address] March, [id number] [place] [address] Feb, [facility] [address] [facility] [id number] [address] [place] [address] Feb, Other chronic pain G89.29 an d Chronic pain G89.29 [facility] [address] [facility] [id number] [address] [place] [address] Jan, Mixed hyperlipidemia E78.2 [facility] [address] [facility] [id number] [address] [place] [address] Jan, Chronic pain G89.29 [facility] [address] [facility] [id number] [address] [place] [address] Jan, Type 2 diabetes mellitus wit h hyperglycemia E11.65 ; Mixed hyperlipidemia E78.2 ; USP 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 Z79.4 ; Acquired hypothyroidism E03.9 and Essential (primary) hypertension I10 [facility] [address] [facility] [id number] [address] [place] [address] Dec, Chronic pain G89.29 [facility] [address] [facility] [id number] [address] [place] [address] Nov, Chronic pain G89.29 [facility] [address] [facility] [id number] [address] [place] [address] Nov, [facility] [address] [facility] [id number] [address] [place] [address] Oct, Chronic pain G89.29 [facility] [address] [place] [id number] [address] [place] [address] Oct, [facility] [address] [facility] [id number] [address] [place] [address] Sep, [facility] [address] [place] [id number] [place] [address] Sep, Type 2 diabetes mellitus wit h hyperglycemia E11.65 [place] [address] [place] [id number] [address] [place] [address] Sep, Chronic pain G89.29 [facility] [address] [place] [id number] [address] [place] [address] Sep, [facility] [address] [place] [id number] [place] [address] Sep, Type 2 diabetes mellitus wit h hyperglycemia E11.65 ; Irritable bowel syndrome with diarrhea K58.0 ; Gastroparesis K31.84 ; 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 and Dermatitis L30.9 [facility] [address] [facility] [id number] [address] [place] [address] Aug, Chronic pain G89.29 [facility] [address] [place] [id number] [address] [place] [address] Jul, Chronic pain G89.29 [facility] [address] [place] [id number] [address] [place] [address] Jun, Type 2 diabetes mellitus wit h hyperglycemia E11.65 ; Neuropathy G62.9 ; Recurrent major depressive disorder, in partial remission F33.41 ; Chronic pain G89.29 and Hypertriglyceridemia E78.1 [place] [address] [facility] [id number] [address] [place] [address] Jun, Hypothyroid E03.9 [place] [address] [facility] [id number] [address] [place] [address] 16 Jun, 2018 Major depressive disorder, r ecurrent episode, moderate F33.1 and Anxiety disorder, unspecified type F41.9 [place] [address] [address] Jun, [place] [address] [address] Jun, Type 2 diabetes mellitus wit h hyperglycemia E11.65 ; 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 ; Recurrent major depressive disorder, in partial remission F33.41 ; Hypothyroid E03.9 ; Candidal dermatitis B37.2 and Weakness generalized R53.1 [place] [address] [place] [id number] [address] [place] [address] May, [place] [address] [place] [id number] [address] [place] [address] May, [place] [address] [place] [id number] [address] [place] [address] May, [place] [address] [place] [id number] [address] [place] [address] May, Generalized abdominal pain R 10.84 and Candidal dermatitis B37.2 [place] [address] [place] [id number] [address] [place] [address] May, [place] [address] [place] [id number] [address] [place] [phone] May, [place] [address] [place] [id number] [address] [place] [address] May, Nodular radiologic density R 93.8 ; Weight loss, unintentional R63.4 and Pulmonary emphysema, unspecified emphysema type J43.9 [place] [address] [place] [id number] [address] [place] [phone] 10 May, 2018 Chronic pain G89.29 [facility] [address] [facility] [id number] [address] [place] [phone] 09 May, 2018 Syncope and collapse R55 ; C hronic fatigue R53.[address] lung screening R91.8 [facility] [address] [facility] [id number] [address] [place] [address] May, [facility] [address] [facility] [id number] [address] [place] [address] Apr, Chronic fatigue R53.82 ; Abn ormal chest CT R93.8 ; Elevated erythrocyte sedimentation rate R70.0 ; Hypothyroid E03.9 and Recurrent major depressive disorder, in partial remission F33.41 [facility] [address] [place] [id number] [address] [place] [address] Apr, Hypothyroid E03.9 [facility] [address] [facility] [id number] [address] [place] [address] Apr, Depression F32.9 [facility] [address] [facility] [id number] [address] [place] [phone] Apr, [facility] [address] [place] [id number] [address] [place] [address] March, [facility] [address] [place] [id number] [address] [place] [address] March, Hypothyroid E03.9 [facility] [address] [facility] [id number] [address] [place] [address] March, Diabetes mellitus E11.9 and Hypothyroid E03.9 [facility] [address] [facility] [id number] [address] [place] [address] March, Diabetes mellitus E11.9 [facility] [address] [facility] [id number] [address] [place] [address] March, Hypothyroid E03.9 and Elevat ed liver enzymes R74.8 [place] [address] [facility] [id number] [address] [place] [address] March, Type 2 diabetes mellitus wit h hyperglycemia E11.65 ; USP 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 Z79.4 ; Pulmonary emphysema, unspecified emphysema type J43.9 ; Hypothyroid E03.9 ; Neuropathy G62.9 ; Mixed hyperlipidemia E78.2 ; Chronic pain G89.29 ; Gastroesophageal reflux disease with esophagitis K21.0 ; Irritable bowel syndrome with diarrhea K58.0 ; Overactive bladder N32.81 and Recurrent major depressive disorder, in partial remission F33.41 [place] [address] [facility] [id number] [address] [place] [address] Feb, Chronic pain G89.29 [place] [address] [facility] [id number] [address] [place] [address] Feb, Type 2 diabetes mellitus wit h hyperglycemia E11.65 and Skin lesion of scalp L98.9 [place] [address] [facility] [id number] [address] [place] [phone] Feb, [place] [address] [facility] [id number] [address] [place] [address] Jan, Type 2 diabetes mellitus wit h hyperglycemia E11.65 ; USP 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 Z79.4 ; Essential (primary) hypertension I10 ; Pulmonary emphysema, unspecified emphysema type J43.9 ; Chronic pain G89.29 ; Controlled substance agreement signed Z79.899 ; Hypothyroid E03.9 ; Neuropathy G62.9 ; Gastroesophageal reflux disease with esophagitis K21.0 ; Overactive bladder N32.81 ; Depression F32.9 and Irritable bowel syndrome with diarrhea K58.0 [place] [address] [facility] [id number] [address] [place] [address] Jan, [place] [address] [facility] [id number] [address] [place] [address] Jan, Controlled substance agreeme nt signed Z79.899 [place] [address] [facility] [id number] [address] [place] [phone] 08 Feb, 2018 Type 2 diabetes mellitus wit h hyperglycemia E11.65 ; Controlled substance agreement signed Z79.899 ; 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 ; Essential (primary) hypertension I10 ; Hypothyroid E03.9 ; Neuropathy G62.9 ; Depression F32.9 ; Mixed hyperlipidemia E78.2 ; Irritable bowel syndrome with diarrhea K58.0 ; Gastroesophageal reflux disease with esophagitis K21.0 ; Thrombocytosis D47.3 ; Current non-adherence to medical treatment Z91.19 and Overweight (BMI 25.0-29.9) E66.3 [facility] [address] [id number] [address] [place] [address] 02 Dec, 2018 Controlled substance agreeme nt signed Z79.899 [place] [address] [facility] [id number] [address] [place] [address] Nov, Type 2 diabetes mellitus wit h hyperglycemia E11.65 and Current non- adherence to medical treatment Z91.19 [place] [address] [id number] [address] [place] [phone] Nov, [place] [address] [id number] [address] [place] [address] Nov, Chronic pain G89.29 [place] [address] [facility] [id number] [address] [place] [address] Nov, [place] [address] [facility] [id number] [address] [place] [address] Nov, Hypothyroid E03.9 [place] [address] [id number] [address] [place] [address] Nov, Hypothyroid E03.9 [place] [address] [facility] [id number] [address] [place] [phone] Nov, Pulmonary emphysema, unspeci fied emphysema type J43.9 and Irritable bowel syndrome with diarrhea K58.0 [place] [address] [id number] [address] [place] [phone] Oct, [place] [address] [facility] [id number] [address] [place] [phone] Oct, [place] [address] [facility] [id number] [address] [place] [phone] Oct, [place] [address] [facility] [id number] [address] [place] [address] Oct, [place] [address] [address] Oct, Chronic pain G89.29 [place] [address] [place] [id number] [place] [address] Oct, Diabetes mellitus E11.9 ; De pression F32.9 ; Mixed hyperlipidemia E78.2 ; Hypotension, unspecified hypotension type I95.9 ; Pulmonary emphysema, unspecified emphysema type J43.9 and Weight loss, unintentional R63.4 [place] [address] [address] Oct, Chronic pain G89.29 [place] [address] [address] Sep, Chronic pain G89.29 [place] [address] [address] Sep, Hypothyroid E03.9 and Diabet es mellitus E11.[address] [address] Aug, Type 2 diabetes mellitus wit h hyperglycemia E11.65 ; USP 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 Z79.4 ; Essential (primary) hypertension I10 ; Hypothyroid E03.9 ; Neuropathy G62.9 ; Chronic pain G89.29 ; Mixed hy perlipidemia E78.2 and Encounter for immunization Z23 [place] [address] [place] [id number] [address] [place] [address] Aug, Chronic pain G89.29 [place] [address] [address] Aug, Overactive bladder N32.81 ; Diabetes mellitus E11.9 and Chronic pain G89.29 [facility] [address] [facility] [id number] [address] [place] [address] Jul, [facility] [address] [facility] [id number] [address] [place] [phone] Jun, [facility] [address] [facility] [id number] [address] [place] [address] Jun, [facility] [address] [facility] [id number] [address] [place] [address] Jun, Hypothyroid E03.9 [facility] [address] [facility] [id number] [address] [place] [address] Jun, Diabetes mellitus E11.9 ; Hy pothyroid E03.9 ; Neuropathy G62.9 ; Chronic pain G89.29 and Neck mass R22.1 [facility] [address] [facility] [id number] [address] [place] [address] Apr, [facility] [address] [facility] [id number] [address] [place] [address] Apr, Acute cystitis without hemat uria N30.00 [facility] [address] [facility] [id number] [address] [place] [address] March, [facility] [address] [facility] [id number] [address] [place] [address] March, [facility] [address] [facility] [id number] [address] [place] [address] March, Near syncope R55 [facility] [address] [facility] [id number] [address] [place] [address] Feb, [facility] [address] [facility] [id number] [address] [place] [address] Feb, Chronic pain G89.29 [facility] [address] [facility] [id number] [address] [place] [address] Feb, [facility] [address] [place] [address] Feb, [facility] [address] [facility] [id number] [address] [place] [address] Jan, Chronic pain G89.29 [facility] [address] [place] [id number] [address] [place] [address] Jan, [facility] [address] [address] 16 Jan, 2017 [facility] [address] [place] [id number] [address] [place] [address] 14 Jan, 2017 Diabetes mellitus E11.9 ; Hy pothyroid E03.9 ; GERD (gastroesophageal reflux disease) K21.9 ; Insomnia G47.00 ; Functional 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 ; Neuropathy G62.9 ; Depression F32.9 ; Chronic pain G89.29 ; Irritable bowel syndrome with diarrhea K58.0 ; Overactive bladder N32.81 ; Mixed hyperlipidemia E78.2 and Bronchitis J40 [facility] [address] [place] [address] Dec, [facility] [address] [place] [id number] [address] [place] [address] Dec, [facility] [address] [place] [address] Dec, [facility] [address] [place] [address] Dec, [facility] [address] [place] [id number] [address] [place] [address] Dec, Chronic pain G89.29 [facility] [address] [place] [id number] [address] [place] [address] Dec, [facility] [address] [place] [id number] [address] [place] [address] Dec, [facility] [address] [place] [id number] [address] [place] [address] 17 Dec, 2016 Type 2 diabetes mellitus wit h foot ulcer E11.621 [facility] [address] [place] [id number] [address] [place] [id number] 17 Dec, 2016 Type 2 diabetes mellitus wit h foot ulcer E11.621 [place] [id number] [place] [id number] [address] [place] [id number] 14 Dec, 2016 HTN (hypertension) I10 ; Dep ression F32.9 ; Type 2 diabetes mellitus with foot ulcer E11.621 ; Functional 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 ; Irritable bowel syndrome with diarrhea K58.0 ; Chronic pain G89.29 ; Insomnia G47.00 ; Overactive bladder N32.81 ; Mixed hyperlipidemia E78.2 ; Gastroesophageal reflux disease with esophagitis K21.0 and Acquired hypothyroidism E03.9 [place] [address] [phone] Nov, [place] [address] [phone] Oct, [place] [address] [phone] Oct, [place] [address] [phone] Oct, [place] [address] [address] Sep, Functional 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 ; HTN (hypertension) I10 ; Diabetes mellitus E11.9 ; Depression F32.9 ; Overactive bladder N32.81 ; Mixed hyperlipidemia E78.2 ; Gastroesophageal reflux disease without esophagitis K21.9 ; Chronic pain G89.29 ; Insomnia G47.00 and Acquired hypothyroidism E03.9 [place] [address] [phone] 04 Sep, 2016 [place] [address] [id number] 11 Aug, 2016 Encounter for immunization Z 23 [place] [address] [place] [id number] [place] [id number] Aug, [place] [address] [phone] Jul, [place] [address] [phone] Jun, Type 2 diabetes mellitus wit hout complications E11.9 ; HTN (hypertension) I10 ; Hypothyroid E03.9 ; Neuropathy G62.9 ; Depression F32.9 ; Chronic pain G89.29 ; GERD (gastroesophageal reflux disease) K21.9 ; Insomnia G47.00 ; Overactive bladder N32.81 ; Mixed hyperlipidemia E78.2 ; Diarrhea of infectious origin A09 and Environmental allergies Z91.09 [place] [address] [address] Apr, [place] [address] [address] March, Hypothyroidism, unspecified E03.9 and Mixed hyperlipidemia E78.2 [place] [address] [address] March, Diabetes mellitus E11.9 ; HT N (hypertension) I10 ; Hypothyroid E03.9 ; Depression F32.9 ; Overactive bladder N32.81 ; Other chronic pain G89.29 ; Lumbago with sciatica, unspecified side M54.40 ; Environmental allergies Z91.09 and Gastroesophageal reflux disease, esophagitis presence not specified K21.9 [place] [address] [place] [id number] [address] [place] [address] March, [place] [address] [address] Jan, HTN (hypertension) I10 ; Hyp othyroid E03.9 ; Neuropathy G62.9 ; Diabetes mellitus E11.9 ; Chronic pain G89.29 ; GERD (gastroesophageal reflux disease) K21.9 ; Overactive bladder N32.81 and Depression F32.9 [place] [address] [place] [id number] [address] [place] [address] Dec, Ear pain, left H92.02 ; HTN (hypertension) I10 ; Hypothyroid E03.9 ; Neuropathy G62.9 ; Diabetes mellitus E11.9 ; Depression F32.9 ; GERD (gastroesophageal reflux disease) K21.9 ; Insomnia G47.00 and Overactive bladder N32.81 [place] [address] [address] Nov, Overactive bladder N32.81 an d Chronic pain G89.29 [place] [address] [address] Nov, Kidney failure N19 [place] [address] [address] Nov, [place] [address] [address] Nov, [place] [address] [address] Nov, Diabetes mellitus E11.9 ; De pression F32.9 ; Chronic pain G89.29 ; GERD (gastroesophageal reflux disease) K21.9 ; Insomnia G47.00 ; HTN (hypertension) I10 ; Hypothyroid E03.9 ; COPD (chronic obstructive pulmonary disease) J44.9 ; Bladder incontinence R32 and Incontinence R32 [place] [address] [place] [id number] [address] [place] [address] Sep, Type 2 diabetes mellitus wit h foot ulcer E11.621 and Chromosomal abnormality, 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 [place] [address] [place] [id number] [address] [place] [address] Sep, [place] [address] [address] Aug, [place] [address] [address] Aug, [facility] [address] Aug, HTN (hypertension) I10 ; Enc ounter for immunization Z23 ; Hypothyroid E03.9 ; Neuropathy G62.9 ; Diabetes mellitus E11.9 ; Depression F32.9 ; Chronic pain G89.29 ; GERD (gastroesophageal reflux disease) K21.9 ; Insomnia G47.00 and COPD (chronic obstructive pulmonary disease) J44.[address] [address] Jun, [address] [address] Jun, [address] [address] May, Essential hypertension, ivis gn 401.1 ; Unspecified hypothyroidism 244.9 ; Insomnia, unspecified 780.52 ; Shortness of breath 786.05 ; Depression 311 ; COPD (chronic obstructive pulmonary disease) 496 ; GERD (gastroesophageal reflux disease) 530.81 and Diabetes 1.5, 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 [address] May, [address] [address] May, [address] [address] May, Shortness of breath 786.05 ; Essential hypertension, benign 401.1 ; Diabetes mellitus 250.00 ; Hyperlipidemia 272.4 ; Hypothyroid 244.9 ; Insomnia 780.52 and Cough 786.[address] [address] Apr, [address] [address] March, Shortness of breath 786.05 ; Nausea with vomiting 787.01 ; Essential hypertension, benign 401.1 ; Diabetes mellitus 250.00 ; Hyperlipidemia 272.4 and Hypothyroid 244.9 [facility] [address] [id number] [address] [place] [address], [place] [address] 14 Feb, 2015 [facility] [address] [id number] [address] [place] [address], [place] [address] Feb, [facility] [address] [id number] [address] [place] [address], [place] [address] Jan, [facility] [address] [id number] [address] [place] [address], [place] [address] Jan, [facility] [address] [id number] [address] [place] [address], [place] [address] Jan, [facility] [address] [id number] [address] [place] [address], [place] [address] Jan, [facility] [address] [id number] [address] [place] [address], [place] [address] Jan, [facility] [address] [id number] [address] [place] [address] Jan, [facility] [address] [id number] [address] [place] [address], [place] [address] Jan, [facility] [address] [id number] [address] [place] [address] Jan, [facility] [address] [id number] [address] [place] [address], [place] [address] Jan, [facility] [address] [id number] [address] [place] [address] Jan, [facility] [address] [id number] [address] [place] [address], [place] [address] Dec, [facility] [address] [id number] [address] [place] [address] Dec, [facility] [address] [id number] [address] [place] [address], [place] [address] Dec, [facility] [address] [id number] [address] [place] [address], [place] [address] Dec, 2014 [facility] [address] [id number] [address] [place] [address], [place] [address] Dec, 2014 [facility] [address] [id number] [address] [place] [address], [place] [address] Dec, 2014 [facility] [address] [id number] [address] [place] [address], [place] [address] Dec, 2014 [facility] [address] [id number] [address] [place] [address], [place] [address] Dec, 2014 [facility] [address] [id number] [address] [place] [address], [place] [address] Dec, 2014 [facility] [address] [id number] [address] [place] [address], [place] [address] Dec, 2014 [facility] [address] [id number] [address] [place] [address], [place] [address] Oct, [facility] [address] [id number] [address] [place] [address], [place] [address] Oct, [facility] [address] [id number] [address] [place] [address], [place] [address] Oct, [facility] [address] [id number] [address] [place] [address], [place] [address] Oct, [facility] [address] [id number] [address] [place] [address], [place] [address] Oct, [facility] [address] [id number] [address] [place] [address], [place] [address] Oct, [facility] [address] [id number] [address] [place] [address], [place] [address] Oct, [facility] [address] [id number] [address] [place] [address], [place] [address] Oct, [facility] [address] [id number] [address] [place] [address], [place] [address] Oct, [facility] [address] [id number] [address] [place] [address], [place] [address] Oct, [facility] [address] [id number] [address] [place] [address], [place] [address] Oct, [facility] [address] [id number] [address] [place] [address], [place] [address] Oct, [facility] [address] [id number] [address] [place] [address], [place] [address] Oct, [facility] [address] [id number] [address] [place] [address], [place] [address] Oct, [facility] [address] [id number] [address] [place] [address], [place] [address] Sep, [facility] [address] [id number] [address] [place] [address], [place] [address] Sep, [facility] [address] [id number] [address] [place] [address], [place] [address] Sep, [facility] [address] [id number] [address] [place] [address], [place] [address] Sep, [facility] [address] [id number] [address] [place] [address], [place] [address] Sep, [facility] [address] [id number] [address] [place] [address], [place] [address] Sep, [facility] [address] [id number] [address] [place] [address], [place] [address] Sep, [facility] [address] [id number] [address] [place] [address], [place] [address] Sep, [facility] [address] [id number] [address] [place] [address], [place] [address] Sep, [facility] [address] [id number] [address] [place] [address], [place] [address] Aug, [facility] [address] [id number] [address] [place] [address], [place] [address] 20 Aug, 2014 [facility] [address] [id number] [address] [place] [address], [place] [address] 17 Aug, 2014 [facility] [address] [id number] [address] [place] [address], [place] [address] 17 Aug, 2014 [facility] [address] [id number] [address] [place] [address], [place] [address] 16 Aug, 2014 [facility] [address] [id number] [address] [place] [address], [place] [address] Aug, [facility] [address] [id number] [address] [place] [address], [place] [address] Aug, [facility] [address] [id number] [address] [place] [address], [place] [address] Aug, [facility] [address] [id number] [address] [place] [address], [place] [address] Aug, [facility] [address] [id number] [address] [place] [address], [place] [address] 29 Sep, 2013 [facility] [address] [id number] [address] [place] [address], [place] [address] 29 Sep, 2013 [facility] [address] [id number] [address] [place] [address], [place] [address] 25 Sep, 2013 [facility] [address] [id number] [address] [place] [address], [place] [address] 25 Sep, 2013 [facility] [address] [id number] [address] [place] [address], [place] [address] 25 Sep, 2013 [facility] [address] [id number] [address] [place] [address], [place] [address] 25 Jul, 2013 [facility] [address] [id number] [address] [place] [address], [place] [address] 25 Jul, 2013 [facility] [address] [id number] [address] [place] [address], [place] [address] 25 Jul2013 [facility] [address] [id number] [facility] [address] Jul, [facility] [address] [id number] [facility] [place] [address] Jul, [facility] [address] [id number] [facility] [place] [address] Jun, [facility] [address] [id number] [facility] [place] [address] Jun, [facility] [address] [id number] [facility] [address] Jun, [facility] [address] [id number] [address] [place] [address], [place] [address] Jun, [facility] [address] [id number] [address] [place] [address], [place] [address] Jun, [facility] [address] [id number] [address] [place] [address], [place] [address] Jun, [facility] [address] [id number] [address] [place] [address], [place] [address] Jun, [facility] [address] [id number] [address] [place] [address], [place] [address] Jun, [facility] [address] [id number] [address] [place] [address], [place] [address] Jun, [facility] [address] [id number] [address] [place] [address], [place] [address] Jun, [facility] [address] [id number] [address] [place] [address], [place] [address] Jun, [facility] [address] [id number] [address] [place] [address], [place] [address] Jun, [facility] [address] [id number] [address] [place] [address], [place] [address] May, [facility] [address] [id number] [address] [place] [address], [place] [address] May, [facility] [address] [id number] [facility] [address] May, [facility] [address] [id number] [address] [place] [address], [place] [address] May, [facility] [address] [id number] [address] [place] [address], [place] [address] May, [facility] [address] [id number] [address] [place] [address], [place] [address] May, [facility] [address] [id number] [address] [place] [address], [place] [address] March, [facility] [address] [id number] [address] [place] [address], [place] [address] March, [facility] [address] [id number] [address] [place] [address], [place] [address] March, [facility] [address] [id number] [address] [place] [address], [place] [address] March, [facility] [address] [id number] [address] [place] [address], [place] [address] March, [facility] [address] [id number] [address] [place] [address], [place] [address] March, [facility] [address] [id number] [address] [place] [address], [place] [address] Feb, [facility] [address] [id number] [address] [place] [address], [place] [address] Feb, [facility] [address] [id number] [address] [place] [address], [place] [address] Feb, [facility] [address] [id number] [address] [place] [address], [place] [address] Feb, [facility] [address] [id number] [address] [place] [address], [place] [address] Jan, [facility] [address] [id number] [facility] [place] [address] 31 Jan, 2014 [facility] [address] [id number] [address] [place] [address], [place] [address] Jan, [facility] [address] [id number] [facility] [place] [address] Jan, [facility] [address] [id number] [address] [place] [address], [place] [address] Jan, [facility] [address] [id number] [address] [place] [address], [place] [address] Jan, [facility] [address] [id number] [address] [place] [address], [place] [address] Jan, [facility] [address] [id number] [address] [place] [address], [place] [address] Jan, [facility] [address] [id number] [address] [place] [address], [place] [address] Jan, [facility] [address] [id number] [address] [place] [address], [place] [address] Jan, [facility] [address] [id number] [address] [place] [address], [place] [address] 05 Jan, 2014 [facility] [address] [id number] [address] [place] [address], [place] [address] Jan, [facility] [address] [id number] [address] [place] [address], [place] [address] Dec, [facility] [address] [id number] [address] [place] [address], [place] [address] Dec, [facility] [address] [id number] [address] [place] [address], [place] [address] Dec, [facility] [address] [id number] [address] [place] [address], [place] [address] Dec, [facility] [address] [id number] [address] [place] [address], [place] [address] Dec, [facility] [address] [id number] [address] [place] [address], [place] [address] Dec, [facility] [address] [id number] [address] [place] [address], [place] [address] Nov, [facility] [address] [id number] [address] [place] [address], [place] [address] Nov, [facility] [address] [id number] [address] [place] [address], [place] [address] Oct, [facility] [address] [id number] [address] [place] [address], [place] [address] Oct, [facility] [address] [id number] [address] [place] [address], [place] [address] Oct, [facility] [address] [id number] [address] [place] [address], [place] [address] Oct, [facility] [address] [id number] [address] [place] [address], [place] [address] Oct, [facility] [address] [id number] [address] [place] [address], [place] [address] Oct, [facility] [address] [id number] [address] [place] [address], [place] [address] Sep, [facility] [address] [id number] [address] [place] [address], [place] [address] Sep, [facility] [address] [id number] [address] [place] [address] Sep, [facility] [address] [id number] [address] [place] [address], [place] [address] Sep, [facility] [address] [id number] [address] [place] [address], [place] [address] Aug, [facility] [address] [id number] [address] [place] [address], [place] [address] Aug, [facility] [address] [id number] [address] [place] [address], [place] [address] 08 Aug, 2013 [facility] [address] [id number] [address] [place] [address], [place] [address] 17 Jul, 2013 [facility] [address] [id number] [address] [place] [address], [place] [address] 14 Jul, 2013 [facility] [address] [id number] [address] [place] [address], [place] [address] 04 Jul, 2013 [facility] [address] [id number] [address] [place] [address], [place] [address] Jun, [facility] [address] [id number] [address] [place] [address], [place] [address] Jun, [facility] [address] [id number] [address] [place] [address], [place] [address] Jun, [facility] [address] [id number] [address] [place] [address], [place] [address] Apr, [facility] [address] [id number] [address] [place] [address], [place] [address] Apr, [facility] [address] [id number] [address] [place] [address], [place] [address] March, [facility] [address] [id number] [address] [place] [address], [place] [address] March, [facility] [address] [id number] [address] [place] [address], [place] [address] March, [facility] [address] [id number] [address] [place] [address], [place] [address] March, [facility] [address] [id number] [address] [place] [address], [place] [address] Feb, [facility] [address] [id number] [address] [place] [address], [place] [address] Jan, [facility] [address] [id number] [address] [place] [address], [place] [address] Dec, [facility] [address] [id number] [address] [place] [address], [place] [address] 08 Dec, 2012 [facility] [address] [id number] [address] [place] [address], [place] [address] Dec, [facility] [address] [id number] [address] [place] [address], [place] [address] Nov, [facility] [address] [id number] [address] [place] [address], [place] [address] Oct, [facility] [address] [id number] [address] [place] [address], [place] [address] Oct, [facility] [address] [id number] [address] [place] [address], [place] [address] Sep, [facility] [address] [id number] [address] [place] [address], [place] [address] Sep, [facility] [address] [id number] [address] [place] [id number] Sep, [facility] [address] [id number] [address] [place] [address], [place] [address] Sep, [facility] [address] [id number] [address] [place] [phone] Sep, [facility] [address] [id number] [address] [place] [phone] Sep, [facility] [address] [id number] [address] [place] [address] Sep, [facility] [address] [id number] [address] [place] [address], [place] [address] Aug, [facility] [address] [id number] [address] [place] [phone] Aug, [facility] [address] [id number] [address] [place] [address] Aug, [facility] [address] [id number] [address] [place] [phone] Aug, [facility] [address] [id number] [address] [place] [address], [place] [address] Aug, [facility] [address] [id number] [address] [place] [address], [place] [address] Aug, [facility] [address] [id number] [address] [place] [address], [place] [address] Aug, [facility] [address] [id number] [address] [place] [address], [place] [address] Aug, [facility] [address] [id number] [address] [place] [address], [place] [address] Jul, [facility] [address] [id number] [address] [place] [address], [place] [address] Jul, [facility] [address] [id number] [address] [place] [address], [place] [address] Jun, [facility] [address] [id number] [address] [place] [address], [place] [address] May, [facility] [address] [id number] [address] [place] [address], [place] [address] Apr, [facility] [address] [id number] [address] [place] [address], [place] [address] Apr, [facility] [address] [id number] [address] [place] [address], [place] [address] Apr, [facility] [address] [id number] [address] [place] [address], [place] [address] March, [facility] [address] [id number] [address] [place] [address], [place] [address] March, [facility] [address] [id number] [address] [place] [address], [place] [address] March, [facility] [address] [id number] [address] [place] [address], [place] [address] March, [facility] [address] [id number] [address] [place] [address], [place] [address] March, [facility] [address] [id number] [address] [place] [address], [place] [address] March, [facility] [address] [id number] [address] [place] [address], [place] [address] March, [facility] [address] [id number] [address] [place] [address], [place] [address] Jan, [facility] [address] [id number] [address] [place] [address], [place] [address] Jan, [facility] [address] [id number] [address] [place] [address], [place] [address] Jan, [facility] [address] [id number] [address] [place] [address], [place] [address] Jan, [facility] [address] [id number] [address] [place] [address], [place] [address] Jan, [facility] [address] [id number] [address] [place] [address], [place] [address] Dec, [facility] [address] [id number] [address] [place] [address], [place] [address] Dec, [facility] [address] [id number] [address] [place] [address], [place] [address] Nov, [facility] [address] [address] [id number] [address] [place] [address], [place] [phone] Nov, [facility] [address] [id number] [address] [place] [address], [place] [id number] Nov, [facility] [address] [id number] [address] [place] [address], [place] [phone] Nov, [facility] [address] [id number] [address] [place] [address], [place] [id number] Oct, [facility] [address] [id number] [address] [place] [address], [place] [phone] 06 Oct, 2011 [facility] [address] [id number] [address] [place] [address], [place] [id number] 14 Sep, 2011 [facility] [address] [id number] [address] [place] [address], [place] [address] 10 Sep, 2011 [facility] [address] [id number] [address] [place] [address], [place] [id number] 10 Sep, 2011 [facility] [address] [id number] [address] [place] [address], [place] [phone] 11 May, 2011 [facility] [address] [id number] [address] [place] [address], [place] [phone] 20 Nov, 2010 [facility] [address] [id number] [address] [place] [address], [place] [id number] 29 Oct, 2010 [facility] [address] [id number] [address] [place] [address], [place] [phone] 14 Oct, 2010 [facility] [address] [id number] [address] [place] [address], [place] [id number] 08 Oct, 2010 [facility] [address] [id number] [address] [place] [address], [place] [address] 15 Sep, 2010 [facility] [address] [id number] [address] [place] [address], [place] [id number] 02 Sep, 2010 [facility] [address] [id number] [address] [place] [address], [place] [phone] Aug, [facility] [address] [id number] [address] [place] [address], [place] [address] March, [facility] [address] [id number] [address] [place] [address], [place] [address] 17 Oct, 2009 [facility] [address] [id number] [address] [place] [address], [place] [phone] 17 Oct, 2009 [facility] [address] [id number] [address] [place] [address], [place] [id number] 10 Oct, 2009 [facility] [address] [id number] [address] [place] [phone] Oct, [facility] [address] [facility] [id number] [address] [place] [phone] Sep, [facility] [address] [facility] [id number] [address] [place] [phone] Sep, [facility] [address] [facility] [id number] [address] [place] [phone] Sep, [facility] [address] [facility] [id number] [address] [place] [phone] Aug, [facility] [address] [facility] [id number] [address] [place] [phone] Aug, [facility] [address] [facility] [id number] [address] [place] [phone] Aug, [facility] [address] [facility] [id number] [address] [place] [phone] Jan, IMMUNIZATIONS No Known Immunizations SOCIAL HISTORY [...]
--- OUTSIDE RECORDS SUMMARY | 2020-06-13 15:56 | XMS REPORT ---
Author Author Jah Dixon Organization [facility] Address [address] [place] [address] Care Team Providers Care Partner Marketing Manager Name Role Phone NU Dixon Unavailable PROBLEMS Type Condition ICD9-CM Code SCI71-GW Code Onset Dates Condition S tatus SNOMED Code Problem Neuropathy G62.9 Active 105006271 Problem Chronic pain G89.29 Active 3183892 1 Problem Overactive bladder N32.81 Active 2 45949637 Problem Hypothyroid E03.9 Active 91589869 Problem Gastroesophageal reflux disease with esophagitis K 21.0 Active 762095787 Problem Mixed hyperlipidemia E78.2 Active 120642815 Problem Type 2 diabetes mellitus with hyperglycemia E11.65 Active 96356790 Problem Essential (primary) hypertension I10 Active 78863806 Problem Anxiety disorder, unspecified type F41.9 Active 590529664 Problem 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 Active 743107547 Problem FCI 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 Z79.4 Active 592855459 Problem Ulcer of foot, limited to breakdown of skin, uns pecified laterality L97.501 Active 08639717 Problem Irritable bowel syndrome with diarrhea K58.0 Active 144890468 Problem Gastroparesis K31.84 Active 496837 006 Problem 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 Active 923081141 Problem Chronic obstructive pulmonary disease, unspecified COPD ty pe J44.9 Active 16874184 Problem Major depressive disorder, recurrent, in full remission F33.42 Active 84914737 ALLERGIES No Information ENCOUNTERS Encounter Location Date Diagnosis [facility] [address] [facility] [id number] [address] [place] [address] March, Ulcer of foot, limited to br eakdown of skin, unspecified laterality L97.501 [facility] [address] [facility] [id number] [address] [place] [address] March, Chronic pain G89.29 [facility] [address] [place] [id number] [address] [place] [address] Feb, Chronic pain G89.29 [facility] [address] [place] [id number] [address] [place] [address] 13 Jan, 2020 Type 2 diabetes mellitus wit h hyperglycemia E11.65 ; 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 and Hyperkalemia E87.5 [facility] [address] [place] [id number] [place] [address] 10 Jan, 2020 Type 2 diabetes mellitus wit h diabetic autonomic (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 ; Hypothyroid E03.9 ; Dyshydrosis L30.1 and Irritable bowel syndrome with diarrhea K58.0 [facility] [address] [place] [id number] [address] [place] [address] 05 Jan, 2020 Chronic pain G89.29 [facility] [id number] [place] [address] Dec, Chronic pain G89.29 [facility] [address] [place] [id number] [address] [place] [address] Dec, [facility] [address] [place] [id number] [address] [place] [address] Dec, [facility] [address] [place] [id number] [address] [place] [address] Nov, Chronic pain G89.29 [facility] [address] [place] [id number] [address] [place] [address] Oct, Chronic pain G89.29 [facility] [address] [place] [id number] [address] [place] [address] Sep, Chronic pain G89.29 [facility] [address] [facility] [id number] [address] [place] [address] Sep, Type 2 diabetes mellitus wit h diabetic autonomic (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 ; Irritable bowel syndrome with diarrhea K58.0 ; Essential (primary) hypertension I10 and Encounter for immunization Z23 [facility] [address] [id number] [address] [place] [address] Aug, Chronic pain G89.29 [facility] [address] [id number] [address] [place] [address] Aug, [facility] [address] [id number] [address] [place] [address] Jul, Chronic pain G89.29 [facility] [address] [id number] [address] [place] [address] Jun, Other chronic pain G89.29 [facility] [address] [id number] [address] [place] [address] Jun, [facility] [address] [facility] [id number] [address] [place] [address] Jun, Chronic pain G89.29 [facility] [address] [facility] [id number] [address] [place] [address] Jun, Neuropathy G62.9 [facility] [address] [facility] [id number] [address] [place] [address] Jun, Encounter for Medicare annua l wellness exam Z00.00 ; Type 2 diabetes mellitus with hyperglycemia E11.65 ; Mixed hyperlipidemia E78.2 ; Hypothyroid E03.9 ; Gastroesophageal reflux disease with esophagitis K21.0 ; Essential (primary) hypertension I10 ; Major depressive disorder, recurrent, in full remission F33.42 ; Chronic obstructive pulmonary disease, unspecified COPD type J44.9 ; Neuropathy G62.9 and Encounter for immunization Z23 [facility] [address] [facility] [id number] [address] [place] [address] Jun, Irritable bowel syndrome wit h diarrhea K58.0 [facility] [address] [id number] [address] [place] [address] May, Chronic pain G89.29 [facility] [address] [facility] [id number] [address] [place] [address] May, Type 2 diabetes mellitus wit h hyperglycemia E11.65 and Neuropathy G62.9 [place] [address] [facility] [id number] [address] [place] [address] May, Chronic pain G89.29 [facility] [address] [facility] [id number] [address] [place] [address] Apr, Poison maryam dermatitis L23.7 [facility] [address] [facility] [id number] [address] [place] [address] Apr, Chronic pain G89.29 [place] [address] [facility] [id number] [address] [place] [address] March, Type 2 diabetes mellitus wit h hyperglycemia E11.65 [place] [address] [facility] [id number] [address] [place] [address] March, Chronic pain G89.29 [place] [address] [facility] [id number] [address] [place] [address] March, [id number] [place] [address] Feb, [place] [address] [facility] [id number] [address] [place] [address] Feb, Other chronic pain G89.29 an d Chronic pain G89.29 [place] [address] [facility] [id number] [address] [place] [address] Jan, Mixed hyperlipidemia E78.2 [facility] [address] [facility] [id number] [address] [place] [address] Jan, Chronic pain G89.29 [place] [address] [facility] [id number] [address] [place] [address] Jan, Type 2 diabetes mellitus wit h hyperglycemia E11.65 ; Mixed hyperlipidemia E78.2 ; FCI 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 Z79.4 ; Acquired hypothyroidism E03.9 and Essential (primary) hypertension I10 [place] [address] [facility] [id number] [address] [place] [address] Dec, Chronic pain G89.29 [facility] [address] [facility] [id number] [address] [place] [address] Nov, Chronic pain G89.29 [facility] [address] [facility] [id number] [address] [place] [address] Nov, [facility] [address] [facility] [id number] [address] [place] [address] Oct, Chronic pain G89.29 [facility] [address] [facility] [id number] [address] [place] [address] Oct, [facility] [address] [facility] [id number] [address] [place] [address] Sep, [facility] [address] [facility] [id number] [address] [place] [address] Sep, Type 2 diabetes mellitus wit h hyperglycemia E11.65 [facility] [address] [facility] [id number] [address] [place] [address] Sep, Chronic pain G89.29 [facility] [address] [facility] [id number] [address] [place] [address] Sep, [facility] [address] [facility] [id number] [address] [place] [address] Sep, Type 2 diabetes mellitus wit h hyperglycemia E11.65 ; Irritable bowel syndrome with diarrhea K58.0 ; Gastroparesis K31.84 ; 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 and Dermatitis L30.9 [facility] [address] [facility] [id number] [address] [place] [address] Aug, Chronic pain G89.29 [facility] [address] [facility] [id number] [address] [place] [address] Jul, Chronic pain G89.29 [facility] [address] [facility] [id number] [address] [place] [address] Jun, Type 2 diabetes mellitus wit h hyperglycemia E11.65 ; Neuropathy G62.9 ; Recurrent major depressive disorder, in partial remission F33.41 ; Chronic pain G89.29 and Hypertriglyceridemia E78.1 [facility] [address] [facility] [id number] [address] [place] [address] Jun, Hypothyroid E03.9 [facility] [address] [facility] [id number] [address] [place] [address] Jun, Major depressive disorder, r ecurrent episode, moderate F33.1 and Anxiety disorder, unspecified type F41.9 [facility] [address] [facility] [id number] [address] [place] [address] Jun, [place] [address] [facility] [id number] [address] [place] [address] Jun, Type 2 diabetes mellitus wit h hyperglycemia E11.65 ; FCI 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 Z79.4 ; Recurrent major depressive disorder, in partial remission F33.41 ; Hypothyroid E03.9 ; Candidal dermatitis B37.2 and Weakness generalized R53.1 [facility] [address] [facility] [id number] [address] [place] [address] May, [facility] [address] [facility] [id number] [address] [place] [address] May, [facility] [address] [facility] [id number] [address] [place] [address] May, [facility] [address] [facility] [id number] [address] [place] [address] May, Generalized abdominal pain R 10.84 and Candidal dermatitis B37.2 [facility] [address] [id number] [address] [place] [address] May, [facility] [address] [facility] [id number] [address] [place] [address] May, [facility] [address] [facility] [id number] [address] [place] [address] May, Nodular radiologic density R 93.8 ; Weight loss, unintentional R63.4 and Pulmonary emphysema, unspecified emphysema type J43.9 [facility] [address] [id number] [address] [place] [address] 10 May, 2018 Chronic pain G89.29 [facility] [address] [id number] [address] [place] [address] 09 May, 2018 Syncope and collapse R55 ; C hronic fatigue R53.[address] lung screening R91.8 [facility] [address] [id number] [address] [place] [address] May, [facility] [address] [id number] [address] [place] [address] Apr, Chronic fatigue R53.82 ; Abn ormal chest CT R93.8 ; Elevated erythrocyte sedimentation rate R70.0 ; Hypothyroid E03.9 and Recurrent major depressive disorder, in partial remission F33.41 [place] [address] [id number] [address] [place] [address] Apr, Hypothyroid E03.9 [facility] [address] [id number] [address] [place] [address] Apr, Depression F32.9 [facility] [address] [id number] [address] [place] [address] Apr, [facility] [address] [id number] [address] [place] [address] March, [facility] [address] [id number] [address] [place] [address] March, Hypothyroid E03.9 [facility] [address] [id number] [address] [place] [address] March, Diabetes mellitus E11.9 and Hypothyroid E03.9 [facility] [address] [id number] [address] [place] [address] March, Diabetes mellitus E11.9 [facility] [address] [id number] [address] [place] [address] March, Hypothyroid E03.9 and Elevat ed liver enzymes R74.8 [place] [address] [facility] [id number] [address] [place] [address] March, Type 2 diabetes mellitus wit h [...] major depressive disorder, in partial remission F33.41 [place] [address] [facility] [id number] [address] [place] [address] Feb, Chronic pain G89.29 [place] [address] [facility] [id number] [address] [place] [address] Feb, Type 2 diabetes mellitus wit h hyperglycemia E11.65 and Skin lesion of scalp L98.9 [place] [address] [facility] [id number] [address] [place] [address] Feb, [place] [address] [facility] [id number] [address] [place] [address] Jan, Type 2 diabetes mellitus wit h [...] and Irritable bowel syndrome with diarrhea K58.0 [place] [address] [facility] [id number] [address] [place] [address] Jan, [facility] [address] [facility] [id number] [address] [place] [address] Jan, Controlled substance agreeme nt signed Z79.899 [facility] [address] [id number] [address] [place] [address] 08 Dec, 2018 Type 2 diabetes mellitus wit h hyperglycemia E11.65 ; Controlled substance agreement signed Z79.899 ; FCI 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 Z79.4 ; Essential (primary) hypertension I10 ; Hypothyroid E03.9 ; Neuropathy G62.9 ; Depression F32.9 ; Mixed hyperlipidemia E78.2 ; Irritable bowel syndrome with diarrhea K58.0 ; Gastroesophageal reflux disease with esophagitis K21.0 ; Thrombocytosis D47.3 ; Current non-adherence to medical treatment Z91.19 and Overweight (BMI 25.0-29.9) E66.3 [place] [address] [id number] [address] [place] [address] 02 Dec, 2018 Controlled substance agreeme nt signed Z79.899 [place] [address] [facility] [id number] [address] [place] [address] 29 Nov, 2017 Type 2 diabetes mellitus wit h hyperglycemia E11.65 and Current non- adherence to medical treatment Z91.19 [place] [address] [id number] [address] [place] [address] Nov, [place] [address] [id number] [address] [place] [address] Nov, Chronic pain G89.29 [place] [address] [id number] [address] [place] [address] Nov, [place] [address] [id number] [address] [place] [address] Nov, Hypothyroid E03.9 [place] [address] [id number] [address] [place] [address] Nov, Hypothyroid E03.9 [place] [address] [facility] [id number] [address] [place] [address] Nov, Pulmonary emphysema, unspeci fied emphysema type J43.9 and Irritable bowel syndrome with diarrhea K58.0 [place] [address] [address] Oct, [facility] [address] [address] Oct, [place] [address] [address] Oct, [place] [address] [address] Oct, [place] [address] [address] Oct, Chronic pain G89.29 [place] [address] [address] Oct, Diabetes mellitus E11.9 ; De pression F32.9 ; Mixed hyperlipidemia E78.2 ; Hypotension, unspecified hypotension type I95.9 ; Pulmonary emphysema, unspecified emphysema type J43.9 and Weight loss, unintentional R63.4 [place] [address] [address] Oct, Chronic pain G89.29 [place] [address] [address] Sep, Chronic pain G89.29 [place] [address] [address] Sep, Hypothyroid E03.9 and Diabet es mellitus E11.9 [place] [address] [address] Aug, Type 2 diabetes mellitus wit h hyperglycemia E11.65 ; 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 ; Essential (primary) hypertension I10 ; Hypothyroid E03.9 ; Neuropathy G62.9 ; Chronic pain G89.29 ; Mixed hy perlipidemia E78.2 and Encounter for immunization Z23 [place] [address] [address] Aug, Chronic pain G89.29 [place] [address] [facility] [id number] [address] [place] [address] Aug, Overactive bladder N32.81 ; Diabetes mellitus E11.9 and Chronic pain G89.29 [facility] [address] [facility] [id number] [address] [place] [address] Jul, [facility] [address] [facility] [id number] [address] [place] [address] Jun, [facility] [address] [facility] [id number] [address] [place] [address] Jun, [facility] [address] [facility] [id number] [address] [place] [address] Jun, Hypothyroid E03.9 [facility] [address] [facility] [id number] [address] [place] [address] Jun, Diabetes mellitus E11.9 ; Hy pothyroid E03.9 ; Neuropathy G62.9 ; Chronic pain G89.29 and Neck mass R22.1 [facility] [address] [facility] [id number] [address] [place] [address] Apr, [facility] [address] [facility] [id number] [address] [place] [address] Apr, Acute cystitis without hemat uria N30.00 [facility] [address] [place] [id number] [address] [place] [address] March, [facility] [address] [facility] [id number] [address] [place] [address] March, [facility] [address] [facility] [id number] [address] [place] [address] March, Near syncope R55 [facility] [address] [facility] [id number] [address] [place] [address] Feb, [facility] [address] [facility] [id number] [address] [place] [address] Feb, Chronic pain G89.29 [facility] [address] [facility] [id number] [address] [place] [address] Feb, [facility] [address] [facility] [id number] [address] [place] [address] Feb, [facility] [address] [facility] [id number] [address] [place] [address] Jan, Chronic pain G89.29 [facility] [address] [place] [id number] [address] [place] [address] Jan, [facility] [address] [facility] [id number] [address] [place] [address] 16 Jan, 2017 [facility] [address] [address] 14 Jan, 2017 Diabetes mellitus E11.9 ; Hy pothyroid E03.9 ; GERD (gastroesophageal reflux disease) K21.9 ; Insomnia G47.00 ; Functional 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 ; Neuropathy G62.9 ; Depression F32.9 ; Chronic pain G89.29 ; Irritable bowel syndrome with diarrhea K58.0 ; Overactive bladder N32.81 ; Mixed hyperlipidemia E78.2 and Bronchitis J40 [facility] [address] [place] [id number] [address] [place] [address] Dec, [facility] [address] [place] [id number] [address] [place] [address] Dec, [facility] [id number] [place] [address] Dec, [facility] [address] [facility] [id number] [address] [place] [address] Dec, [facility] [address] [place] [id number] [address] [place] [address] Dec, Chronic pain G89.29 [facility] [address] [facility] [id number] [address] [place] [address] Dec, [facility] [address] [place] [id number] [place] [phone] Dec, [facility] ([facility] [address] [place] [id number] [place] [phone] Dec, Type 2 diabetes mellitus wit h foot ulcer E11.621 [facility] ([facility] [address] [place] [id number] [place] [phone] 17 Dec, 2016 Type 2 diabetes mellitus wit h foot ulcer E11.621 [facility] ([facility] [address] [id number] [place] [phone] 14 Dec, 2016 HTN (hypertension) I10 ; Dep ression F32.9 ; Type 2 diabetes mellitus with foot ulcer E11.621 ; Functional 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 ; Irritable bowel syndrome with diarrhea K58.0 ; Chronic pain G89.29 ; Insomnia G47.00 ; Overactive bladder N32.81 ; Mixed hyperlipidemia E78.2 ; Gastroesophageal reflux disease with esophagitis K21.0 and Acquired hypothyroidism E03.9 [place] [address] [id number] [place] [phone] Nov, [place] [address] [place] [id number] [place] [phone] Oct, [place] [address] [place] [id number] [place] [phone] Oct, [place] [address] [place] [id number] [place] [phone] Oct, [place] [address] [place] [id number] [place] [phone] Sep, Functional 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 ; HTN (hypertension) I10 ; Diabetes mellitus E11.9 ; Depression F32.9 ; Overactive bladder N32.81 ; Mixed hyperlipidemia E78.2 ; Gastroesophageal reflux disease without esophagitis K21.9 ; Chronic pain G89.29 ; Insomnia G47.00 and Acquired hypothyroidism E03.9 [place] [address] [place] [id number] [place] [phone] Sep, [place] [address] [id number] 11 Aug, 2016 Encounter for immunization Z 23 [place] [address] [phone] 06 Aug, 2016 [place] [address] [phone] 09 Jul, 2016 [place] [address] [phone] Jun, Type 2 diabetes mellitus wit hout complications E11.9 ; HTN (hypertension) I10 ; Hypothyroid E03.9 ; Neuropathy G62.9 ; Depression F32.9 ; Chronic pain G89.29 ; GERD (gastroesophageal reflux disease) K21.9 ; Insomnia G47.00 ; Overactive bladder N32.81 ; Mixed hyperlipidemia E78.2 ; Diarrhea of infectious origin A09 and Environmental allergies Z91.09 [place] [address] [address] [address] [address] Apr, [place] [address] [address] March, Hypothyroidism, unspecified E03.9 and Mixed hyperlipidemia E78.2 [place] [address] [address] March, Diabetes mellitus E11.9 ; HT N (hypertension) I10 ; Hypothyroid E03.9 ; Depression F32.9 ; Overactive bladder N32.81 ; Other chronic pain G89.29 ; Lumbago with sciatica, unspecified side M54.40 ; Environmental allergies Z91.09 and Gastroesophageal reflux disease, esophagitis presence not specified K21.9 [place] [address] [address] March, [place] [address] [address] Jan, HTN (hypertension) I10 ; Hyp othyroid E03.9 ; Neuropathy G62.9 ; Diabetes mellitus E11.9 ; Chronic pain G89.29 ; GERD (gastroesophageal reflux disease) K21.9 ; Overactive bladder N32.81 and Depression F32.9 [place] [address] [address] 12 Dec, 2015 Ear pain, left H92.02 ; HTN (hypertension) I10 ; Hypothyroid E03.9 ; Neuropathy G62.9 ; Diabetes mellitus E11.9 ; Depression F32.9 ; GERD (gastroesophageal reflux disease) K21.9 ; Insomnia G47.00 and Overactive bladder N32.81 [place] [address] [address] Nov, Overactive bladder N32.81 an d Chronic pain G89.29 [place] [address] [address] Nov, Kidney failure N19 [place] [address] [address] Nov, [place] [address] [address] Nov, [place] [address] [address] Nov, Diabetes mellitus E11.9 ; De pression F32.9 ; Chronic pain G89.29 ; GERD (gastroesophageal reflux disease) K21.9 ; Insomnia G47.00 ; HTN (hypertension) I10 ; Hypothyroid E03.9 ; COPD (chronic obstructive pulmonary disease) J44.9 ; Bladder incontinence R32 and Incontinence R32 [place] [address] [address] Sep, Type 2 diabetes mellitus wit h foot ulcer E11.621 and Chromosomal abnormality, 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 [place] [address] [address] [place] [id number] [address] [place] [address] Sep, [place] [address] [address] Aug, [facility] [address] Aug, [address] [address] Aug, HTN (hypertension) I10 ; Enc ounter for immunization Z23 ; Hypothyroid E03.9 ; Neuropathy G62.9 ; Diabetes mellitus E11.9 ; Depression F32.9 ; Chronic pain G89.29 ; GERD (gastroesophageal reflux disease) K21.9 ; Insomnia G47.00 and COPD (chronic obstructive pulmonary disease) J44.[address] [address] Jun, [address] [address] Jun, [address] [address] May, Essential hypertension, ivis gn 401.1 ; Unspecified hypothyroidism 244.9 ; Insomnia, unspecified 780.52 ; Shortness of breath 786.05 ; Depression 311 ; COPD (chronic obstructive pulmonary disease) 496 ; GERD (gastroesophageal reflux disease) 530.81 and Diabetes 1.5, 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 [address] May, [address] [address] May, [address] [address] May, Shortness of breath 786.05 ; Essential hypertension, benign 401.1 ; Diabetes mellitus 250.00 ; Hyperlipidemia 272.4 ; Hypothyroid 244.9 ; Insomnia 780.52 and Cough 786.[address] [address] Apr, [address] [address] March, Shortness of breath 786.05 ; Nausea with vomiting 787.01 ; Essential hypertension, benign 401.1 ; Diabetes mellitus 250.00 ; Hyperlipidemia 272.4 and Hypothyroid 244.9 [facility] [address] [id number] [address] [place] [address] 14 Feb, 2015 [facility] [address] [facility] [id number] [address] [place] [address] Feb, [facility] [address] [id number] [address] [place] [address] Jan, [facility] [address] [id number] [address] [place] [address] Jan, [facility] [address] [id number] [address] [place] [address] Jan, [facility] [address] [facility] [id number] [address] [place] [address] Jan, [facility] [address] [id number] [address] [place] [address] Jan, [facility] [address] [id number] [address] [place] [address] Jan, [facility] [address] [facility] [id number] [address] [place] [address] Jan, [facility] [address] [id number] [address] [place] [address] Jan, [facility] [address] [id number] [address] [place] [address] Jan, [facility] [address] [id number] [address] [place] [address] Jan, [facility] [address] [id number] [address] [place] [address] Dec, [facility] [address] [facility] [id number] [address] [place] [address] Dec, [facility] [address] [id number] [address] [place] [address], [place] [address] Dec, 2014 [facility] [address] [id number] [address] [place] [address], [place] [address] Dec, 2014 [facility] [address] [id number] [address] [place] [address], [place] [address] Dec, 2014 [facility] [address] [id number] [address] [place] [address], [place] [address] Dec, 2014 [facility] [address] [id number] [address] [place] [address], [place] [address] Dec, 2014 [facility] [address] [id number] [address] [place] [address], [place] [address] Dec, 2014 [facility] [address] [id number] [address] [place] [address], [place] [address] Dec, 2014 [facility] [address] [id number] [address] [place] [address], [place] [address] Dec, 2014 [facility] [address] [id number] [address] [place] [address], [place] [address] Oct, [facility] [address] [id number] [address] [place] [address], [place] [address] Oct, [facility] [address] [id number] [address] [place] [address], [place] [address] Oct, [facility] [address] [id number] [address] [place] [address], [place] [address] Oct, [facility] [address] [id number] [address] [place] [address], [place] [address] Oct, [facility] [address] [id number] [address] [place] [address], [place] [address] Oct, [facility] [address] [id number] [address] [place] [address], [place] [address] Oct, [facility] [address] [id number] [address] [place] [address] [address] Oct, [facility] [address] [id number] [address] [place] [address], [place] [address] Oct, [facility] [address] [id number] [address] [place] [address], [place] [address] Oct, [facility] [address] [id number] [address] [place] [address], [place] [address] Oct, [facility] [address] [id number] [address] [place] [address], [place] [address] Oct, [facility] [address] [id number] [address] [place] [address], [place] [address] Oct, [facility] [address] [id number] [address] [place] [address], [place] [address] Oct, [facility] [address] [id number] [address] [place] [address], [place] [address] Sep, [facility] [address] [id number] [address] [place] [address], [place] [address] Sep, [facility] [address] [id number] [address] [place] [address], [place] [address] Sep, [facility] [address] [id number] [address] [place] [address], [place] [address] Sep, [facility] [address] [id number] [address] [place] [address], [place] [address] Sep, [facility] [address] [id number] [address] [place] [address], [place] [address] Sep, [facility] [address] [id number] [address] [place] [address], [place] [address] Sep, [facility] [address] [id number] [address] [place] [address], [place] [address] Sep, [facility] [address] [id number] [address] [place] [address], [place] [address] Sep, [facility] [address] [id number] [address] [place] [address], [place] [address] 20 Aug, 2013 [facility] [address] [id number] [address] [place] [address], [place] [address] 20 Aug, 2013 [facility] [address] [id number] [address] [place] [address], [place] [address] 17 Aug, 2013 [facility] [address] [id number] [address] [place] [address], [place] [address] 17 Aug, 2013 [facility] [address] [id number] [address] [place] [address], [place] [address] 16 Aug, 2013 [facility] [address] [id number] [address] [place] [address], [place] [address] Aug, [facility] [address] [id number] [address] [place] [address], [place] [address] Aug, [facility] [address] [id number] [address] [place] [address], [place] [address] Aug, [facility] [address] [id number] [address] [place] [address], [place] [address] Aug, [facility] [address] [id number] [address] [place] [address], [place] [address] 29 Sep, 2013 [facility] [address] [id number] [address] [place] [address], [place] [address] 29 Sep, 2013 [facility] [address] [id number] [address] [place] [address], [place] [address] 25 Sep, 2013 [facility] [address] [id number] [address] [place] [address], [place] [address] 25 Sep, 2013 [facility] [address] [id number] [address] [place] [address], [place] [address] 25 Jul, 2013 [facility] [address] [id number] [address] [place] [address], [place] [address] 25 Jul, 2013 [facility] [address] [id number] [address] [place] [address], [place] [address] Jul, [facility] [address] [id number] [facility] [place] [address] Jul, [facility] [address] [id number] [address] [place] [address], [place] [address] Jul, [facility] [address] [id number] [address] [place] [address], [place] [address] Jul, [facility] [address] [id number] [address] [place] [address], [place] [address] Jun, [facility] [address] [id number] [address] [place] [address], [place] [address] Jun, [facility] [address] [id number] [address] [place] [address], [place] [address] Jun, [facility] [address] [id number] [address] [place] [address], [place] [address] Jun, [facility] [address] [id number] [address] [place] [address], [place] [address] Jun, [facility] [address] [id number] [address] [place] [address], [place] [address] Jun, [facility] [address] [id number] [address] [place] [address], [place] [address] Jun, [facility] [address] [id number] [address] [place] [address], [place] [address] Jun, [facility] [address] [id number] [address] [place] [address], [place] [address] Jun, [facility] [address] [id number] [address] [place] [address], [place] [address] Jun, [facility] [address] [id number] [address] [place] [address], [place] [address] Jun, [facility] [address] [id number] [address] [place] [address], [place] [address] Jun, [facility] [address] [id number] [address] [place] [address], [place] [address] May, [facility] [address] [id number] [facility] [place] [address] May, [facility] [address] [id number] [address] [place] [address], [place] [address] May, [facility] [address] [id number] [address] [place] [address], [place] [address] May, [facility] [address] [id number] [address] [place] [address], [place] [address] May, [facility] [address] [id number] [address] [place] [address], [place] [address] May, [facility] [address] [id number] [address] [place] [address], [place] [address] March, [facility] [address] [id number] [address] [place] [address], [place] [address] March, [facility] [address] [id number] [address] [place] [address], [place] [address] March, [facility] [address] [id number] [address] [place] [address], [place] [address] March, [facility] [address] [id number] [address] [place] [address], [place] [address] March, [facility] [address] [id number] [address] [place] [address], [place] [address] March, [facility] [address] [id number] [address] [place] [address], [place] [address] Feb, [facility] [address] [id number] [address] [place] [address], [place] [address] Feb, [facility] [address] [id number] [address] [place] [address], [place] [address] Feb, [facility] [address] [id number] [address] [place] [address], [place] [address] Feb, [facility] [address] [id number] [facility] [place] [address] Jan, [facility] [address] [id number] [address] [place] [address], [place] [address] Jan, [facility] [address] [id number] [facility] [place] [address] Jan, [facility] [address] [id number] [address] [place] [address], [place] [address] Jan, [facility] [address] [id number] [address] [place] [address], [place] [address] Jan, [facility] [address] [id number] [address] [place] [address], [place] [address] Jan, [facility] [address] [id number] [address] [place] [address], [place] [address] Jan, [facility] [address] [id number] [address] [place] [address], [place] [address] Jan, [facility] [address] [id number] [address] [place] [address], [place] [address] Jan, [facility] [address] [id number] [address] [place] [address], [place] [address] Jan, [facility] [address] [id number] [address] [place] [address], [place] [address] Jan, [facility] [address] [id number] [address] [place] [address], [place] [address] Jan, [facility] [address] [id number] [address] [place] [address], [place] [address] Dec, [facility] [address] [id number] [address] [place] [address], [place] [address] Dec, [facility] [address] [id number] [address] [place] [address], [place] [address] Dec, [facility] [address] [id number] [address] [place] [address], [place] [address] Dec, [facility] [address] [id number] [address] [place] [address], [place] [address] Dec, [facility] [address] [id number] [address] [place] [address], [place] [address] Dec, [facility] [address] [id number] [address] [place] [address], [place] [address] Nov, [facility] [address] [id number] [address] [place] [address], [place] [address] Nov, [facility] [address] [id number] [address] [place] [address], [place] [address] Oct, [facility] [address] [id number] [address] [place] [address], [place] [address] Oct, [facility] [address] [id number] [address] [place] [address], [place] [address] Oct, [facility] [address] [id number] [address] [place] [address], [place] [address] Oct, [facility] [address] [id number] [address] [place] [address], [place] [address] Oct, [facility] [address] [id number] [address] [place] [address], [place] [address] Oct, [facility] [address] [id number] [address] [place] [address], [place] [address] Sep, [facility] [address] [id number] [address] [place] [address] Sep, [facility] [address] [id number] [address] [place] [address], [place] [address] Sep, [facility] [address] [id number] [address] [place] [address], [place] [address] Sep, [facility] [address] [id number] [address] [place] [address], [place] [address] Aug, [facility] [address] [id number] [address] [place] [address], [place] [address] Aug, [facility] [address] [id number] [address] [place] [address], [place] [address] Aug, [facility] [address] [id number] [address] [place] [address], [place] [address] 17 Jul, 2013 [facility] [address] [id number] [address] [place] [address], [place] [address] 14 Jul, 2013 [facility] [address] [id number] [address] [place] [address], [place] [address] Jul, [facility] [address] [id number] [address] [place] [address], [place] [address] Jun, [facility] [address] [id number] [address] [place] [address], [place] [address] Jun, [facility] [address] [id number] [address] [place] [address], [place] [address] Jun, [facility] [address] [id number] [address] [place] [address], [place] [address] Apr, [facility] [address] [id number] [address] [place] [address], [place] [address] Apr, [facility] [address] [id number] [address] [place] [address], [place] [address] March, [facility] [address] [id number] [address] [place] [address], [place] [address] March, [facility] [address] [id number] [address] [place] [address], [place] [id number] March, [facility] [address] [id number] [address] [place] [address], [place] [id number] March, [facility] [address] [id number] [address] [place] [address], [place] [id number] Feb, [facility] [address] [id number] [address] [place] [address], [place] [id number] Jan, [facility] [address] [id number] [address] [place] [address], [place] [id number] 13 Dec, 2012 [facility] [address] [id number] [address] [place] [address], [place] [id number] 08 Dec, 2012 [facility] [address] [id number] [address] [place] [address], [place] [id number] 07 Dec, 2012 [facility] [address] [id number] [address] [place] [address], [place] [id number] Nov, [facility] [address] [id number] [address] [place] [address], [place] [id number] Oct, [facility] [address] [id number] [address] [place] [address], [place] [id number] Oct, [facility] [address] [id number] [address] [place] [address], [place] [id number] Sep, [facility] [address] [id number] [address] [place] [address], [place] [id number] Sep, [facility] [address] [id number] [address] [place] [address], [place] [id number] Sep, [facility] [address] [id number] [address] [place] [address], [place] [id number] Sep, [facility] [address] [id number] [address] [place] [address], [place] [id number] Sep, [facility] [address] [id number] [address] [place] [address], [place] [id number] Sep, [facility] [address] [id number] [address] [place] [address], [place] [id number] Sep, [facility] [address] [id number] [address] [place] [address], [place] [id number] Aug, [facility] [address] [id number] [address] [place] [address], [place] [id number] Aug, [facility] [address] [id number] [address] [address] [place] [id number] 10 Aug, 2012 [facility] [address] [id number] [address] [place] [address], [place] [id number] 10 Aug, 2012 [facility] [address] [id number] [address] [place] [address], [place] [id number] 08 Aug, 2012 [facility] [address] [id number] [address] [place] [address], [place] [id number] 08 Aug, 2012 [facility] [address] [id number] [address] [place] [address], [place] [id number] Aug, [facility] [address] [id number] [address] [place] [address], [place] [id number] Aug, [facility] [address] [id number] [address] [place] [address], [place] [id number] Jul, [facility] [address] [id number] [address] [place] [address], [place] [id number] Jul, [facility] [address] [id number] [address] [place] [address], [place] [id number] Jun, [facility] [address] [id number] [address] [place] [address], [place] [id number] May, [facility] [address] [id number] [address] [place] [address], [place] [id number] Apr, [facility] [address] [id number] [address] [place] [address], [place] [id number] Apr, [facility] [address] [id number] [address] [place] [address], [place] [id number] Apr, [facility] [address] [id number] [address] [place] [address], [place] [id number] March, [facility] [address] [id number] [address] [place] [address], [place] [id number] March, [facility] [address] [id number] [address] [place] [address], [place] [id number] March, [facility] [address] [id number] [address] [place] [address], [place] [id number] March, [facility] [address] [id number] [address] [place] [address], [place] [id number] March, [facility] [address] [id number] [address] [place] [address], [place] [id number] March, [facility] [address] [id number] [address] [place] [address], [place] [id number] March, [facility] [address] [id number] [address] [place] [address], [place] [id number] Jan, [facility] [address] [id number] [address] [place] [address], [place] [id number] Jan, [facility] [address] [id number] [address] [place] [address], [place] [id number] Jan, [facility] [address] [id number] [address] [place] [address], [place] [id number] Jan, [facility] [address] [id number] [address] [place] [address], [place] [id number] Jan, [facility] [address] [id number] [address] [place] [address], [place] [id number] Dec, [facility] [address] [id number] [address] [place] [address], [place] [id number] Dec, [facility] [address] [id number] [address] [place] [address], [place] [id number] Nov, [facility] [address] [id number] [address] [place] [address], [place] [id number] Nov, [facility] [address] [id number] [address] [place] [address], [place] [id number] Nov, [facility] [address] [id number] [address] [place] [address], [place] [id number] Nov, [facility] [address] [id number] [address] [address] 21 Oct, 2011 [facility] [address] [id number] [address] [place] [address], [place] [id number] 06 Oct, 2011 [facility] [address] [id number] [address] [place] [address], [place] [id number] 14 Sep, 2011 [facility] [address] [id number] [address] [place] [address], [place] [id number] 10 Sep, 2011 [facility] [address] [id number] [address] [place] [address], [place] [id number] 10 Sep, 2011 [facility] [address] [id number] [address] [place] [address], [place] [id number] May, [facility] [address] [id number] [address] [place] [address], [place] [id number] 20 Nov, 2010 [facility] [address] [id number] [address] [place] [address], [place] [id number] 29 Oct, 2010 [facility] [address] [id number] [address] [place] [address], [place] [id number] 14 Oct, 2010 [facility] [address] [id number] [address] [place] [address], [place] [id number] Oct, [facility] [address] [id number] [address] [place] [address], [place] [id number] 15 Sep, 2010 [facility] [address] [id number] [address] [place] [address], [place] [id number] Sep, [facility] [address] [id number] [address] [place] [address], [place] [id number] Aug, [facility] [address] [id number] [address] [place] [address], [place] [id number] March, [facility] [address] [id number] [address] [place] [address], [place] [id number] Oct, [facility] [address] [id number] [address] [place] [address], [place] [id number] Oct, [facility] [address] [id number] [address] [place] [id number] Oct, [facility] [address] [id number] [address] [place] [id number] Oct, [facility] [address] [id number] [address] [place] [id number] Sep, [facility] [address] [facility] [id number] [address] [place] [id number] Sep, [facility] [address] [facility] [id number] [address] [place] [id number] Sep, [facility] [address] [facility] [id number] [address] [place] [id number] Aug, [facility] [address] [facility] [id number] [address] [place] [id number] Aug, [facility] [address] [facility] [id number] [address] [place] [id number] Aug, [facility] [address] [facility] [id number] [address] [place] [id number] Jan, IMMUNIZATIONS No Known Immunizations SOCIAL HISTORY [...]
--- OUTSIDE RECORDS SUMMARY | 2020-06-13 15:57 | XMS REPORT ---
Author Author Jah Durant Doctor Organization [facility] Address Unknown Phone Unavailable Care Team Providers Care Communications Media Professor Name Role Phone Migration, Doctor Unavailable Unavailable PROBLEMS Type Condition ICD9-CM Code GAM24-PE Code Onset Dates Condition S tatus SNOMED Code Problem Chronic pain G89.29 Active 6273864 1 Problem Hypothyroid E03.9 Active 39683833 Problem Neuropathy G62.9 Active 863507548 Problem Mixed hyperlipidemia E78.2 Active 980355031 Problem Overactive bladder N32.81 Active 2 43468547 Problem longterm 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 Z79.4 Active 409198013 Problem Type 2 diabetes mellitus with hyperglycemia E11.65 Active 62167235 Problem Essential (primary) hypertension I10 Active 13640521 Problem Major depressive disorder, recurrent, in full remission F33.42 Active 97015557 Problem Irritable bowel syndrome with diarrhea K58.0 Active 398557729 Problem longterm (current) use of insulin Z79.4 Active 178497218 Problem Gastroesophageal reflux disease with esophagitis K 21.0 Active 190707665 Problem Anxiety disorder, unspecified type F41.9 Active 306401540 Problem Gastroparesis K31.84 Active 200769 006 Problem 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 Active 562281185 Problem Chronic obstructive pulmonary disease, unspecified COPD ty pe J44.9 Active 29653443 ALLERGIES No Information ENCOUNTERS Encounter Location Date Diagnosis [facility] [address] [facility] [id number] [address] [place] [address] March, Chronic pain G89.29 [facility] [address] [facility] [id number] [address] [place] [address] Feb, Chronic pain G89.29 [facility] [address] [facility] [id number] [address] [place] [address] Jan, Type 2 diabetes mellitus wit h hyperglycemia E11.65 ; longterm (current) use of insulin Z79.4 and Hyperkalemia E87.5 [facility] [address] [facility] [id number] [address] [place] [address] 10 Jan, 2020 Type 2 diabetes mellitus wit h diabetic autonomic (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 ; Hypothyroid E03.9 ; Dyshydrosis L30.1 and Irritable bowel syndrome with diarrhea K58.0 [facility] [address] [place] [id number] [address] [place] [address] Jan, Chronic pain G89.29 [facility] [address] [place] [id number] [address] [place] [id number] 10 Dec, 2019 Chronic pain G89.29 [facility] [address] [place] [id number] [place] [phone] Dec, [facility] [address] [place] [id number] [address] [place] [address] Dec, [facility] [address] [place] [id number] [place] [address] Nov, Chronic pain G89.29 [facility] [address] [place] [id number] [address] [place] [address] Oct, Chronic pain G89.29 [facility] [address] [place] [id number] [address] [place] [address] Sep, Chronic pain G89.29 [facility] [address] [place] [id number] [address] [place] [address] Sep, Type 2 diabetes mellitus wit h diabetic autonomic (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 ; Irritable bowel syndrome with diarrhea K58.0 ; Essential (primary) hypertension I10 and Encounter for immunization Z23 [facility] [address] [place] [id number] [address] [place] [address] Aug, Chronic pain G89.29 [facility] [address] [place] [id number] [address] [place] [address] Aug, [facility] [address] [place] [id number] [address] [place] [address] Jul, Chronic pain G89.29 [facility] [address] [facility] [id number] [address] [place] [address] Jun, Other chronic pain G89.29 [facility] [address] [facility] [id number] [address] [place] [phone] Jun, [facility] [address] [facility] [id number] [address] [place] [address] Jun, Chronic pain G89.29 [place] [address] [facility] [id number] [address] [place] [address] Jun, Neuropathy G62.9 [place] [address] [address] Jun, Encounter for Medicare annua l wellness exam Z00.00 ; Type 2 diabetes mellitus with hyperglycemia E11.65 ; Mixed hyperlipidemia E78.2 ; Hypothyroid E03.9 ; Gastroesophageal reflux disease with esophagitis K21.0 ; Essential (primary) hypertension I10 ; Major depressive disorder, recurrent, in full remission F33.42 ; Chronic obstructive pulmonary disease, unspecified COPD type J44.9 ; Neuropathy G62.9 and Encounter for immunization Z23 [place] [address] [place] [id number] [place] [address] Jun, Irritable bowel syndrome wit h diarrhea K58.0 [place] [address] [place] [id number] [address] [place] [address] May, Chronic pain G89.29 [facility] [address] [facility] [id number] [address] [place] [address] May, Type 2 diabetes mellitus wit h hyperglycemia E11.65 and Neuropathy G62.9 [place] [address] [facility] [id number] [address] [place] [address] May, Chronic pain G89.29 [place] [address] [facility] [id number] [address] [place] [address] Apr, Poison maryam dermatitis L23.7 [place] [address] [place] [id number] [address] [place] [address] Apr, Chronic pain G89.29 [facility] [address] [facility] [id number] [address] [place] [address] March, Type 2 diabetes mellitus wit h hyperglycemia E11.65 [facility] [address] [facility] [id number] [address] [place] [address] March, Chronic pain G89.29 [facility] [address] [facility] [id number] [address] [place] [address] March, [id number] [place] [address] Feb, [facility] [address] [facility] [id number] [address] [place] [address] Feb, Other chronic pain G89.29 an d Chronic pain G89.29 [facility] [address] [facility] [id number] [address] [place] [address] Jan, Mixed hyperlipidemia E78.2 [facility] [address] [facility] [id number] [address] [place] [address] Jan, Chronic pain G89.29 [facility] [address] [facility] [id number] [address] [place] [address] Jan, Type 2 diabetes mellitus wit h hyperglycemia E11.65 ; Mixed hyperlipidemia E78.2 ; terminologist 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 Z79.4 ; Acquired hypothyroidism E03.9 and Essential (primary) hypertension I10 [facility] [address] [facility] [id number] [address] [place] [address] Dec, Chronic pain G89.29 [facility] [address] [facility] [id number] [address] [place] [address] Nov, Chronic pain G89.29 [facility] [address] [facility] [id number] [address] [place] [address] Nov, [facility] [address] [facility] [id number] [address] [place] [address] Oct, Chronic pain G89.29 [facility] [address] [facility] [id number] [address] [place] [address] Oct, [facility] [address] [facility] [id number] [address] [place] [address] Sep, [facility] [address] [facility] [id number] [address] [place] [address] Sep, Type 2 diabetes mellitus wit h hyperglycemia E11.65 [place] [address] [facility] [id number] [address] [place] [address] Sep, Chronic pain G89.29 [place] [address] [facility] [id number] [address] [place] [address] Sep, [place] [address] [place] [id number] [address] [place] [address] Sep, Type 2 diabetes mellitus wit h hyperglycemia E11.65 ; Irritable bowel syndrome with diarrhea K58.0 ; Gastroparesis K31.84 ; 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 and Dermatitis L30.9 [place] [address] [place] [id number] [address] [place] [address] Aug, Chronic pain G89.29 [place] [address] [place] [id number] [address] [place] [address] Jul, Chronic pain G89.29 [place] [address] [place] [id number] [address] [place] [address] Jun, Type 2 diabetes mellitus wit h hyperglycemia E11.65 ; Neuropathy G62.9 ; Recurrent major depressive disorder, in partial remission F33.41 ; Chronic pain G89.29 and Hypertriglyceridemia E78.1 [place] [address] [place] [id number] [address] [place] [address] Jun, Hypothyroid E03.9 [place] [address] [place] [id number] [address] [place] [address] Jun, Major depressive disorder, r ecurrent episode, moderate F33.1 and Anxiety disorder, unspecified type F41.9 [place] [address] [facility] [id number] [address] [place] [address] Jun, [place] [address] [facility] [id number] [address] [place] [address] Jun, Type 2 diabetes mellitus wit h hyperglycemia E11.65 ; terminologist 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 Z79.4 ; Recurrent major depressive disorder, in partial remission F33.41 ; Hypothyroid E03.9 ; Candidal dermatitis B37.2 and Weakness generalized R53.1 [place] [address] [id number] [address] [place] [address] May, [place] [address] [place] [id number] [address] [place] [address] May, [place] [address] [place] [id number] [place] [address] May, [place] [address] [facility] [id number] [address] [place] [address] May, Generalized abdominal pain R 10.84 and Candidal dermatitis B37.2 [place] [address] [facility] [id number] [address] [place] [address] May, [place] [address] [place] [id number] [address] [place] [address] May, [place] [address] [place] [id number] [place] [address] May, Nodular radiologic density R 93.8 ; Weight loss, unintentional R63.4 and Pulmonary emphysema, unspecified emphysema type J43.9 [place] [address] [facility] [id number] [address] [place] [address] May, Chronic pain G89.29 [place] [address] [place] [id number] [place] [address] 09 May, 2018 Syncope and collapse R55 ; C hronic fatigue R53.[address] lung screening R91.8 [facility] [address] [facility] [id number] [address] [place] [address] May, [facility] [address] [facility] [id number] [address] [place] [address] Apr, Chronic fatigue R53.82 ; Abn ormal chest CT R93.8 ; Elevated erythrocyte sedimentation rate R70.0 ; Hypothyroid E03.9 and Recurrent major depressive disorder, in partial remission F33.41 [facility] [address] [facility] [id number] [address] [place] [address] Apr, Hypothyroid E03.9 [place] [address] [facility] [id number] [address] [place] [address] Apr, Depression F32.9 [facility] [address] [place] [id number] [address] [place] [address] Apr, [facility] [address] [place] [id number] [address] [place] [address] March, [facility] [address] [place] [id number] [address] [place] [address] March, Hypothyroid E03.9 [place] [address] [place] [id number] [address] [place] [address] March, Diabetes mellitus E11.9 and Hypothyroid E03.9 [place] [address] [place] [id number] [address] [place] [address] March, Diabetes mellitus E11.9 [place] [address] [place] [id number] [place] [address] March, Hypothyroid E03.9 and Elevat ed liver enzymes R74.8 [place] [address] [facility] [id number] [address] [place] [address] March, Type 2 diabetes mellitus wit h hyperglycemia E11.65 ; longterm 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 Z79.4 ; Pulmonary emphysema, unspecified emphysema type J43.9 ; Hypothyroid E03.9 ; Neuropathy G62.9 ; Mixed hyperlipidemia E78.2 ; Chronic pain G89.29 ; Gastroesophageal reflux disease with esophagitis K21.0 ; Irritable bowel syndrome with diarrhea K58.0 ; Overactive bladder N32.81 and Recurrent major depressive disorder, in partial remission F33.41 [place] [address] [place] [id number] [place] [address] Feb, Chronic pain G89.29 [place] [id number] [place] [address] Feb, Type 2 diabetes mellitus wit h hyperglycemia E11.65 and Skin lesion of scalp L98.9 [place] [address] [address] Feb, [place] [address] [address] Jan, Type 2 diabetes mellitus wit h hyperglycemia E11.65 ; terminologist 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 Z79.4 ; Essential (primary) hypertension I10 ; Pulmonary emphysema, unspecified emphysema type J43.9 ; Chronic pain G89.29 ; Controlled substance agreement signed Z79.899 ; Hypothyroid E03.9 ; Neuropathy G62.9 ; Gastroesophageal reflux disease with esophagitis K21.0 ; Overactive bladder N32.81 ; Depression F32.9 and Irritable bowel syndrome with diarrhea K58.0 [place] [address] [place] [id number] [address] [place] [address] Jan, [place] [address] [place] [id number] [address] [place] [address] Jan, Controlled substance agreeme nt signed Z79.899 [place] [address] [place] [id number] [place] [address] Dec, Type 2 diabetes mellitus wit h hyperglycemia E11.65 ; Controlled substance agreement signed Z79.899 ; longterm 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 Z79.4 ; Essential (primary) hypertension I10 ; Hypothyroid E03.9 ; Neuropathy G62.9 ; Depression F32.9 ; Mixed hyperlipidemia E78.2 ; Irritable bowel syndrome with diarrhea K58.0 ; Gastroesophageal reflux disease with esophagitis K21.0 ; Thrombocytosis D47.3 ; Current non-adherence to medical treatment Z91.19 and Overweight (BMI 25.0-29.9) E66.3 [place] [id number] [place] [address] 02 Dec, 2017 Controlled substance agreeme nt signed Z79.899 [place] [address] [address] Nov, Type 2 diabetes mellitus wit h hyperglycemia E11.65 and Current non- adherence to medical treatment Z91.19 [place] [address] [place] [id number] [place] [address] Nov, [place] [address] [address] Nov, Chronic pain G89.29 [place] [address] [address] Nov, [place] [address] [place] [id number] [place] [address] Nov, Hypothyroid E03.9 [place] [address] [place] [id number] [place] [address] Nov, Hypothyroid E03.9 [place] [address] [place] [id number] [place] [address] Nov, Pulmonary emphysema, unspeci fied emphysema type J43.9 and Irritable bowel syndrome with diarrhea K58.0 [place] [address] [place] [id number] [place] [address] Oct, [place] [address] [address] Oct, [place] [address] [place] [id number] [place] [address] Oct, [place] [address] [address] Oct, [place] [address] [facility] [id number] [address] [place] [address] Oct, Chronic pain G89.29 [place] [address] [facility] [id number] [address] [place] [address] Oct, Diabetes mellitus E11.9 ; De pression F32.9 ; Mixed hyperlipidemia E78.2 ; Hypotension, unspecified hypotension type I95.9 ; Pulmonary emphysema, unspecified emphysema type J43.9 and Weight loss, unintentional R63.4 [place] [address] [place] [id number] [place] [address] Oct, Chronic pain G89.29 [place] [address] [place] [id number] [place] [address] Sep, Chronic pain G89.29 [place] [address] [place] [id number] [place] [address] Sep, Hypothyroid E03.9 and Diabet es mellitus E11.9 [place] [address] [place] [id number] [place] [address] Aug, Type 2 diabetes mellitus wit h hyperglycemia E11.65 ; terminologist 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 Z79.4 ; Essential (primary) hypertension I10 ; Hypothyroid E03.9 ; Neuropathy G62.9 ; Chronic pain G89.29 ; Mixed hy perlipidemia E78.2 and Encounter for immunization Z23 [place] [address] [place] [id number] [place] [address] Aug, Chronic pain G89.29 [place] [address] [place] [id number] [place] [address] Aug, Overactive bladder N32.81 ; Diabetes mellitus E11.9 and Chronic pain G89.29 [place] [address] [facility] [id number] [address] [place] [address] Jul, [place] [address] [place] [id number] [place] [address] Jun, [facility] [address] [id number] [address] [place] [address] Jun, [facility] [address] [id number] [address] [place] [address] Jun, Hypothyroid E03.9 [facility] [address] [id number] [address] [place] [address] Jun, Diabetes mellitus E11.9 ; Hy pothyroid E03.9 ; Neuropathy G62.9 ; Chronic pain G89.29 and Neck mass R22.1 [facility] [address] [id number] [address] [place] [address] Apr, [facility] [address] [id number] [address] [place] [address] Apr, Acute cystitis without hemat uria N30.00 [facility] [address] [id number] [address] [place] [address] March, [facility] [address] [id number] [address] [place] [address] March, [facility] [address] [facility] [id number] [address] [place] [address] March, Near syncope R55 [facility] [address] [facility] [id number] [address] [place] [address] Feb, [facility] [address] [id number] [address] [place] [address] Feb, Chronic pain G89.29 [facility] [address] [id number] [address] [place] [address] Feb, [facility] [address] [facility] [id number] [address] [place] [address] Feb, [facility] [address] [id number] [address] [place] [address] Jan, Chronic pain G89.29 [facility] [address] [id number] [address] [place] [address] Jan, [facility] [address] [address] Jan, [facility] [address] [address] 14 Jan, 2017 Diabetes mellitus E11.9 ; Hy pothyroid E03.9 ; GERD (gastroesophageal reflux disease) K21.9 ; Insomnia G47.00 ; Functional 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 ; Neuropathy G62.9 ; Depression F32.9 ; Chronic pain G89.29 ; Irritable bowel syndrome with diarrhea K58.0 ; Overactive bladder N32.81 ; Mixed hyperlipidemia E78.2 and Bronchitis J40 [facility] [address] [address] Dec, [facility] [address] [address] Dec, [facility] [address] [address] Dec, [facility] [address] [address] Dec, [facility] [address] [address] Dec, Chronic pain G89.29 [facility] [address] [address] Dec, [facility] [address] [place] [id number] [place] [phone] Dec, [facility] [address] [address] Dec, Type 2 diabetes mellitus wit h foot ulcer E11.621 [facility] [address] [place] [id number] [place] [id number] Dec, Type 2 diabetes mellitus wit h foot ulcer E11.621 [facility] [address] [address] 14 Dec, 2016 HTN (hypertension) I10 ; Dep ression F32.9 ; Type 2 diabetes mellitus with foot ulcer E11.621 ; Functional 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 ; Irritable bowel syndrome with diarrhea K58.0 ; Chronic pain G89.29 ; Insomnia G47.00 ; Overactive bladder N32.81 ; Mixed hyperlipidemia E78.2 ; Gastroesophageal reflux disease with esophagitis K21.0 and Acquired hypothyroidism E03.9 [place] [address] [address] Nov, [place] [address] [address] Oct, [place] [address] [address] Oct, [place] [address] [address] Oct, [place] [address] [place] [id number] [place] [phone] Sep, Functional 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 ; HTN (hypertension) I10 ; Diabetes mellitus E11.9 ; Depression F32.9 ; Overactive bladder N32.81 ; Mixed hyperlipidemia E78.2 ; Gastroesophageal reflux disease without esophagitis K21.9 ; Chronic pain G89.29 ; Insomnia G47.00 and Acquired hypothyroidism E03.9 [place] [address] [address] Sep, [place] [address] [place] [id number] [place] [phone] Aug, Encounter for immunization Z [address] [place] [address] [place] [id number] [place] [phone] Aug, [place] [address] [place] [id number] [place] [id number] Jul, [place] [address] [address] Jun, Type 2 diabetes mellitus wit hout complications E11.9 ; HTN (hypertension) I10 ; Hypothyroid E03.9 ; Neuropathy G62.9 ; Depression F32.9 ; Chronic pain G89.29 ; GERD (gastroesophageal reflux disease) K21.9 ; Insomnia G47.00 ; Overactive bladder N32.81 ; Mixed hyperlipidemia E78.2 ; Diarrhea of infectious origin A09 and Environmental allergies Z91.09 [place] [address] [address] Apr, [place] [address] [address] March, Hypothyroidism, unspecified E03.9 and Mixed hyperlipidemia E78.2 [place] [address] [address] March, Diabetes mellitus E11.9 ; HT N (hypertension) I10 ; Hypothyroid E03.9 ; Depression F32.9 ; Overactive bladder N32.81 ; Other chronic pain G89.29 ; Lumbago with sciatica, unspecified side M54.40 ; Environmental allergies Z91.09 and Gastroesophageal reflux disease, esophagitis presence not specified K21.9 [place] [address] [address] March, [place] [address] [address] Jan, HTN (hypertension) I10 ; Hyp othyroid E03.9 ; Neuropathy G62.9 ; Diabetes mellitus E11.9 ; Chronic pain G89.29 ; GERD (gastroesophageal reflux disease) K21.9 ; Overactive bladder N32.81 and Depression F32.9 [place] [address] [address] Dec, Ear pain, left H92.02 ; HTN (hypertension) I10 ; Hypothyroid E03.9 ; Neuropathy G62.9 ; Diabetes mellitus E11.9 ; Depression F32.9 ; GERD (gastroesophageal reflux disease) K21.9 ; Insomnia G47.00 and Overactive bladder N32.81 [place] [address] [address] [facility] [id number] [address] [place] [address] Nov, Overactive bladder N32.81 an d Chronic pain G89.29 [place] [address] [address] [facility] [id number] [address] [place] [address] Nov, Kidney failure N19 [place] [address] [address] [facility] [id number] [address] [place] [address] Nov, [place] [address] [address] [facility] [id number] [address] [place] [address] Nov, [place] [address] [address] [facility] [id number] [address] [place] [address] Nov, Diabetes mellitus E11.9 ; De pression F32.9 ; Chronic pain G89.29 ; GERD (gastroesophageal reflux disease) K21.9 ; Insomnia G47.00 ; HTN (hypertension) I10 ; Hypothyroid E03.9 ; COPD (chronic obstructive pulmonary disease) J44.9 ; Bladder incontinence R32 and Incontinence R32 [place] [address] [address] [facility] [id number] [address] [place] [address] Sep, Type 2 diabetes mellitus wit h foot ulcer E11.621 and Chromosomal abnormality, 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 [place] [address] [address] [place] [id number] [address] [place] [address] Sep, [place] [address] [address] [facility] [id number] [address] [place] [address] Aug, [place] [address] [address] [facility] [id number] [address] [place] [address] Aug, [place] [address] [address] [place] [id number] [address] [place] [address] Aug, HTN (hypertension) I10 ; Enc ounter for immunization Z23 ; Hypothyroid E03.9 ; Neuropathy G62.9 ; Diabetes mellitus E11.9 ; Depression F32.9 ; Chronic pain G89.29 ; GERD (gastroesophageal reflux disease) K21.9 ; Insomnia G47.00 and COPD (chronic obstructive pulmonary disease) J44.9 [place] [address] [address] Jun, [facility] [address] [address] Jun, [place] [address] [address] May, Essential hypertension, ivis gn 401.1 ; Unspecified hypothyroidism 244.9 ; Insomnia, unspecified 780.52 ; Shortness of breath 786.05 ; Depression 311 ; COPD (chronic obstructive pulmonary disease) 496 ; GERD (gastroesophageal reflux disease) 530.81 and Diabetes 1.5, 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 [place] [address] [address] May, [place] [address] [address] May, [place] [address] [address] May, Shortness of breath 786.05 ; Essential hypertension, benign 401.1 ; Diabetes mellitus 250.00 ; Hyperlipidemia 272.4 ; Hypothyroid 244.9 ; Insomnia 780.52 and Cough 786.2 [place] [address] [address] Apr, [place] [address] [address] March, Shortness of breath 786.05 ; Nausea with vomiting 787.01 ; Essential hypertension, benign 401.1 ; Diabetes mellitus 250.00 ; Hyperlipidemia 272.4 and Hypothyroid 244.9 [place] [address] [address] Feb, [place] [address] [address] Feb, [facility] [address] [id number] [address] [place] [address], [place] [address] Jan, [facility] [address] [id number] [address] [place] [address], [place] [address] Jan, [facility] [address] [id number] [address] [place] [address], [place] [address] Jan, [facility] [address] [id number] [address] [place] [address], [place] [address] Jan, [facility] [address] [id number] [address] [place] [address], [place] [address] Jan, [facility] [address] [id number] [address] [place] [address], [place] [address] Jan, [facility] [address] [id number] [address] [place] [address], [place] [address] Jan, [facility] [address] [id number] [address] [place] [address], [place] [address] Jan, [facility] [address] [id number] [address] [place] [address], [place] [address] Jan, [facility] [address] [id number] [address] [place] [address], [place] [address] Jan, [facility] [address] [id number] [address] [place] [address], [place] [address] Dec, [facility] [address] [id number] [address] [place] [address], [place] [address] Dec, [facility] [address] [id number] [address] [place] [address], [place] [address] Dec, [facility] [address] [id number] [address] [place] [address], [place] [address] Dec, 2014 [facility] [address] [id number] [address] [place] [address], [place] [address] Dec, 2014 [facility] [address] [id number] [address] [place] [address], [place] [address] Dec, 2014 [facility] [address] [id number] [address] [place] [address], [place] [address] Dec, 2014 [facility] [address] [id number] [address] [place] [address], [place] [address] Dec, 2014 [facility] [address] [id number] [address] [place] [address], [place] [address] Dec, 2014 [facility] [address] [id number] [address] [place] [address], [place] [address] Dec, 2014 [facility] [address] [id number] [address] [place] [address], [place] [address] Oct, [facility] [address] [id number] [address] [place] [address], [place] [address] Oct, [facility] [address] [id number] [address] [place] [address], [place] [address] Oct, [facility] [address] [id number] [address] [place] [address], [place] [address] Oct, [facility] [address] [id number] [address] [place] [address], [place] [address] Oct, [facility] [address] [id number] [address] [place] [address], [place] [address] Oct, [facility] [address] [id number] [address] [place] [address], [place] [address] Oct, [facility] [address] [id number] [address] [place] [address], [place] [address] Oct, [facility] [address] [id number] [address] [place] [address], [place] [address] Oct, [facility] [address] [id number] [address] [place] [address], [place] [address] Oct, [facility] [address] [id number] [address] [place] [address], [place] [address] Oct, [facility] [address] [id number] [address] [place] [address], [place] [address] Oct, [facility] [address] [id number] [address] [place] [address], [place] [address] Oct, [facility] [address] [id number] [address] [place] [address], [place] [address] Oct, [facility] [address] [id number] [address] [place] [address], [place] [address] Sep, [facility] [address] [id number] [address] [place] [address], [place] [address] Sep, [facility] [address] [id number] [address] [place] [address], [place] [address] Sep, [facility] [address] [id number] [address] [place] [address], [place] [address] Sep, [facility] [address] [id number] [address] [place] [address], [place] [address] Sep, [facility] [address] [id number] [address] [place] [address], [place] [address] Sep, [facility] [address] [id number] [address] [place] [address], [place] [address] Sep, [facility] [address] [id number] [address] [place] [address], [place] [address] Sep, [facility] [address] [id number] [address] [place] [address], [place] [address] Sep, [facility] [address] [id number] [address] [place] [address], [place] [address] Aug, [facility] [address] [id number] [address] [place] [address], [place] [address] Aug, [facility] [address] [id number] [address] [place] [address], [place] [address] Aug, [facility] [address] [id number] [address] [place] [address], [place] [address] 17 Aug, 2014 [facility] [address] [id number] [address] [place] [address], [place] [address] 16 Aug, 2014 [facility] [address] [id number] [address] [place] [address], [place] [address] Aug, [facility] [address] [id number] [address] [place] [address], [place] [address] Aug, [facility] [address] [id number] [address] [place] [address], [place] [address] Aug, [facility] [address] [id number] [address] [place] [address], [place] [address] Aug, [facility] [address] [id number] [address] [place] [address], [place] [address] 29 Jul, 2013 [facility] [address] [id number] [address] [place] [address], [place] [address] 29 Jul, 2013 [facility] [address] [id number] [address] [place] [address], [place] [address] 25 Jul, 2013 [facility] [address] [id number] [address] [place] [address], [place] [address] 25 Jul, 2013 [facility] [address] [id number] [address] [place] [address], [place] [address] Jul, 2013 [facility] [address] [id number] [address] [place] [address], [place] [address] 25 Jul, 2013 [facility] [address] [id number] [address] [place] [address], [place] [address] 25 Jul, 2013 [facility] [address] [id number] [address] [place] [address], [place] [address] 25 Jul, 2013 [facility] [address] [id number] [address] [place] [address], [place] [address] Jul, 2013 [facility] [address] [id number] [address] [place] [address], [place] [address] 02 Jul, 2013 [facility] [address] [id number] [facility] [place] [address] Jun, [facility] [address] [id number] [facility] [place] [address] Jun, [facility] [address] [id number] [facility] [place] [address] Jun, [facility] [address] [id number] [address] [place] [address], [place] [address] Jun, [facility] [address] [id number] [facility] [place] [address] Jun, [facility] [address] [id number] [address] [place] [address], [place] [address] Jun, [facility] [address] [id number] [address] [place] [address], [place] [address] Jun, [facility] [address] [id number] [address] [place] [address], [place] [address] Jun, [facility] [address] [id number] [address] [place] [address], [place] [address] Jun, [facility] [address] [id number] [address] [place] [address], [place] [address] Jun, [facility] [address] [id number] [address] [place] [address], [place] [address] Jun, [facility] [address] [id number] [address] [place] [address], [place] [address] Jun, [facility] [address] [id number] [address] [place] [address], [place] [address] May, [facility] [address] [id number] [address] [place] [address], [place] [address] May, [facility] [address] [id number] [address] [place] [address], [place] [address] May, [facility] [address] [id number] [address] [place] [address], [place] [address] May, [facility] [address] [id number] [facility] [place] [address] May, [facility] [address] [id number] [address] [place] [address], [place] [address] May, [facility] [address] [id number] [address] [place] [address], [place] [address] March, [facility] [address] [id number] [address] [place] [address], [place] [address] March, [facility] [address] [id number] [address] [place] [address], [place] [address] March, [facility] [address] [id number] [address] [place] [address], [place] [address] March, [facility] [address] [id number] [address] [place] [address], [place] [address] March, [facility] [address] [id number] [address] [place] [address], [place] [address] March, [facility] [address] [id number] [address] [place] [address], [place] [address] Feb, [facility] [address] [id number] [address] [place] [address], [place] [address] Feb, [facility] [address] [id number] [address] [place] [address], [place] [address] Feb, [facility] [address] [id number] [address] [place] [address], [place] [address] Feb, [facility] [address] [id number] [address] [place] [address], [place] [address] Jan, [facility] [address] [id number] [address] [place] [address], [place] [address] Jan, [facility] [address] [id number] [address] [place] [address], [place] [address] Jan, [facility] [address] [id number] [address] [address] Jan, [facility] [address] [id number] [address] [place] [address], [place] [address] Jan, [facility] [address] [id number] [address] [place] [address], [place] [address] Jan, [facility] [address] [id number] [address] [place] [address], [place] [address] Jan, [facility] [address] [id number] [address] [place] [address], [place] [address] Jan, [facility] [address] [id number] [address] [place] [address], [place] [address] Jan, [facility] [address] [id number] [address] [place] [address], [place] [address] Jan, [facility] [address] [id number] [address] [place] [address], [place] [address] Jan, [facility] [address] [id number] [address] [place] [address], [place] [address] Jan, [facility] [address] [id number] [address] [place] [address], [place] [address] Dec, [facility] [address] [id number] [address] [place] [address], [place] [address] Dec, [facility] [address] [id number] [address] [place] [address], [place] [address] Dec, [facility] [address] [id number] [address] [place] [address], [place] [address] Dec, [facility] [address] [id number] [address] [place] [address], [place] [address] Dec, [facility] [address] [id number] [address] [place] [address], [place] [address] Dec, [facility] [address] [id number] [address] [place] [address], [place] [address] Nov, [facility] [address] [id number] [address] [place] [address], [place] [address] Nov, [facility] [address] [id number] [address] [place] [address], [place] [address] Oct, [facility] [address] [id number] [address] [place] [address], [place] [address] Oct, [facility] [address] [id number] [address] [place] [address], [place] [address] Oct, [facility] [address] [id number] [address] [place] [address], [place] [address] Oct, [facility] [address] [id number] [address] [place] [address], [place] [address] Oct, [facility] [address] [id number] [address] [place] [address], [place] [address] Oct, [facility] [address] [id number] [address] [place] [address], [place] [address] Sep, [facility] [address] [id number] [address] [place] [address], [place] [address] Sep, [facility] [address] [id number] [address] [place] [address], [place] [address] Sep, [facility] [address] [id number] [address] [place] [address], [place] [address] Sep, [facility] [address] [id number] [address] [place] [address], [place] [address] Aug, [facility] [address] [id number] [address] [place] [address], [place] [address] Aug, [facility] [address] [id number] [address] [place] [address], [place] [address] Aug, [facility] [address] [id number] [address] [place] [address], [place] [address] 17 Jul, 2013 [facility] [address] [id number] [address] [place] [address], [place] [address] 14 Jul, 2013 [facility] [address] [id number] [address] [place] [address], [place] [address] Jul, [facility] [address] [id number] [address] [place] [address], [place] [address] Jun, [facility] [address] [id number] [address] [place] [address], [place] [address] Jun, [facility] [address] [id number] [address] [place] [address], [place] [address] Jun, [facility] [address] [id number] [address] [place] [address], [place] [address] Apr, [facility] [address] [id number] [address] [place] [address], [place] [address] Apr, [facility] [address] [id number] [address] [place] [address], [place] [address] March, [facility] [address] [id number] [address] [place] [address], [place] [address] March, [facility] [address] [id number] [address] [place] [address], [place] [address] March, [facility] [address] [id number] [address] [place] [address], [place] [address] March, [facility] [address] [id number] [address] [place] [address], [place] [address] Feb, [facility] [address] [id number] [address] [place] [address], [place] [address] Jan, [facility] [address] [id number] [address] [place] [address], [place] [address] Dec, [facility] [address] [id number] [address] [place] [address], [place] [address] Dec, [facility] [address] [id number] [address] [place] [address], [place] [address] Dec, [facility] [address] [id number] [address] [place] [address], [place] [address] Nov, [facility] [address] [id number] [address] [place] [address], [place] [address] Oct, [facility] [address] [id number] [address] [place] [address], [place] [address] Oct, [facility] [address] [id number] [address] [place] [address], [place] [address] Sep, [facility] [address] [id number] [address] [place] [address], [place] [address] Sep, [facility] [address] [id number] [address] [place] [address], [place] [address] Sep, [facility] [address] [id number] [address] [place] [address], [place] [address] Sep, [facility] [address] [id number] [address] [place] [address], [place] [address] Sep, [facility] [address] [id number] [address] [place] [address], [place] [address] Sep, [facility] [address] [id number] [address] [place] [address], [place] [address] Sep, [facility] [address] [id number] [address] [place] [address], [place] [address] Aug, [facility] [address] [id number] [address] [place] [address], [place] [address] Aug, [facility] [address] [id number] [address] [place] [address], [place] [address] Aug, [facility] [address] [id number] [address] [place] [address], [place] [address] Aug, [facility] [address] [id number] [address] [place] [address], [place] [address] Aug, [facility] [address] [id number] [address] [place] [address], [place] [address] Aug, [facility] [address] [id number] [address] [place] [address], [place] [address] Aug, [facility] [address] [id number] [address] [place] [address], [place] [address] Aug, [facility] [address] [id number] [address] [place] [address], [place] [address] Jul, [facility] [address] [id number] [address] [place] [address], [place] [address] Jul, [facility] [address] [id number] [address] [place] [address], [place] [address] Jun, [facility] [address] [id number] [address] [place] [address], [place] [address] May, [facility] [address] [id number] [address] [place] [address], [place] [address] Apr, [facility] [address] [id number] [address] [place] [address], [place] [address] Apr, [facility] [address] [id number] [address] [place] [address], [place] [address] Apr, [facility] [address] [id number] [address] [place] [address], [place] [address] March, [facility] [address] [id number] [address] [place] [address], [place] [address] March, [facility] [address] [id number] [address] [place] [address], [place] [address] March, [facility] [address] [id number] [address] [place] [address], [place] [address] March, [facility] [address] [id number] [address] [place] [address], [place] [address] March, [facility] [address] [id number] [address] [place] [address], [place] [address] March, [facility] [address] [id number] [address] [place] [id number] March, [facility] [address] [id number] [address] [place] [address], [place] [address] Jan, [facility] [address] [id number] [address] [place] [address], [place] [address] Jan, [facility] [address] [id number] [address] [place] [address], [place] [address] Jan, [facility] [address] [id number] [address] [place] [address], [place] [address] 13 Jan, 2012 [facility] [address] [id number] [address] [place] [address], [place] [address] Jan, [facility] [address] [id number] [address] [place] [address], [place] [id number] 08 Dec, 2011 [facility] [address] [id number] [address] [place] [address], [place] [address] Dec, [facility] [address] [id number] [address] [place] [address], [place] [address] Nov, [facility] [address] [id number] [address] [place] [address], [place] [address] Nov, [facility] [address] [id number] [address] [place] [address], [place] [address] Nov, [facility] [address] [id number] [address] [place] [address], [place] [address] Nov, [facility] [address] [id number] [address] [place] [address], [place] [address] Oct, [facility] [address] [id number] [address] [place] [address], [place] [address] Oct, [facility] [address] [id number] [address] [place] [address], [place] [address] 14 Sep, 2011 [facility] [address] [id number] [address] [place] [address], [place] [address] Sep, [facility] [address] [id number] [address] [place] [address], [place] [address] 10 Sep, 2011 [facility] [address] [id number] [address] [place] [address], [place] [address] May, [facility] [address] [id number] [address] [place] [address], [place] [address] Nov, [facility] [address] [id number] [address] [place] [address], [place] [address] 29 Oct, 2010 [facility] [address] [id number] [address] [place] [address], [place] [address] 14 Oct, 2010 [facility] [address] [id number] [address] [place] [address], [place] [address] 08 Oct, 2010 [facility] [address] [id number] [address] [place] [address], [place] [address] 15 Sep, 2010 [facility] [address] [id number] [address] [place] [address], [place] [address] Sep, [facility] [address] [id number] [address] [place] [address], [place] [address] Aug, [facility] [address] [id number] [address] [place] [address], [place] [address] March, [facility] [address] [id number] [address] [place] [address], [place] [address] 17 Oct, 2009 [facility] [address] [id number] [address] [place] [address], [place] [address] 17 Oct, 2009 [facility] [address] [id number] [address] [place] [address], [place] [address] Oct, [facility] [address] [id number] [address] [place] [address], [place] [address] Oct, [facility] [address] [id number] [address] [place] [address], [place] [address] Sep, [facility] [address] [id number] [address] [place] [address], [place] [address] Sep, [facility] [address] [facility] [id number] [address] [place] [phone] Sep, [facility] [address] [facility] [id number] [address] [place] [id number] Aug, [facility] [address] [facility] [id number] [address] [place] [phone] Aug, [facility] [address] [facility] [id number] [address] [place] [id number] Aug, [facility] [address] [facility] [id number] [address] [place] [id number] Jan, IMMUNIZATIONS No Known Immunizations SOCIAL HISTORY [...]
--- OUTSIDE RECORDS SUMMARY | 2020-06-13 15:57 | XMS REPORT ---
Author Author Jah Durant Doctor Organization [facility] Address Unknown Phone Unavailable Care Team Providers Care Wellness Educator Name Role Phone Migration, Doctor Unavailable Unavailable PROBLEMS Type Condition ICD9-CM Code [id number] Code Onset Dates Condition S tatus SNOMED Code Problem Chronic pain G89.29 Active 7454373 1 Problem Hypothyroid E03.9 Active 91797910 Problem Neuropathy G62.9 Active 119197248 Problem Mixed hyperlipidemia E78.2 Active 747230265 Problem Overactive bladder N32.81 Active 2 11936595 Problem MCC 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 Z79.4 Active 536849761 Problem Type 2 diabetes mellitus with hyperglycemia E11.65 Active 88295635 Problem Essential (primary) hypertension I10 Active 88045135 Problem Major depressive disorder, recurrent, in full remission F33.42 Active 69602700 Problem Irritable bowel syndrome with diarrhea K58.0 Active 092192909 Problem MCC (current) use of insulin Z79.4 Active 071722406 Problem Gastroesophageal reflux disease with esophagitis K 21.0 Active 489007376 Problem Anxiety disorder, unspecified type F41.9 Active 906773606 Problem Gastroparesis K31.84 Active 903624 006 Problem 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 Active 457488852 Problem Chronic obstructive pulmonary disease, unspecified COPD ty pe J44.9 Active 01248229 ALLERGIES No Information ENCOUNTERS Encounter Location Date Diagnosis [facility] [address] [facility] [id number] [address] [place] [phone] March, Chronic pain G89.29 [facility] [address] [facility] [id number] [address] [place] [phone] Feb, Chronic pain G89.29 [facility] [address] [facility] [id number] [address] [place] [address] Jan, Type 2 diabetes mellitus wit h hyperglycemia E11.65 ; MCC (current) use of insulin Z79.4 and Hyperkalemia E87.5 [facility] [address] [facility] [id number] [address] [place] [id number] 10 Jan, 2020 Type 2 diabetes mellitus wit h diabetic autonomic (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 ; Hypothyroid E03.9 ; Dyshydrosis L30.1 and Irritable bowel syndrome with diarrhea K58.0 [facility] [address] [place] [id number] [address] [place] [address] Jan, Chronic pain G89.29 [facility] [address] [place] [id number] [address] [place] [id number] 10 Dec, 2019 Chronic pain G89.29 [facility] [address] [place] [id number] [place] [id number] Dec, [facility] [address] [place] [id number] [address] [place] [phone] Dec, [facility] [address] [place] [id number] [place] [phone] Nov, Chronic pain G89.29 [facility] [address] [place] [id number] [address] [place] [id number] Oct, Chronic pain G89.29 [facility] [address] [place] [id number] [address] [place] [id number] Sep, Chronic pain G89.29 [facility] [address] [place] [id number] [address] [place] [address] Sep, Type 2 diabetes mellitus wit h diabetic autonomic (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 ; Irritable bowel syndrome with diarrhea K58.0 ; Essential (primary) hypertension I10 and Encounter for immunization Z23 [facility] [address] [place] [id number] [address] [place] [address] Aug, Chronic pain G89.29 [facility] [address] [place] [id number] [address] [place] [id number] Aug, [facility] [address] [place] [id number] [address] [place] [phone] Jul, Chronic pain G89.29 [facility] [address] [facility] [id number] [address] [place] [phone] Jun, Other chronic pain G89.29 [facility] [address] [facility] [id number] [address] [place] [address] Jun, [facility] [address] [facility] [id number] [address] [place] [address] Jun, Chronic pain G89.29 [place] [address] [facility] [id number] [address] [place] [address] Jun, Neuropathy G62.9 [place] [address] [address] Jun, Encounter for Medicare annua l wellness exam Z00.00 ; Type 2 diabetes mellitus with hyperglycemia E11.65 ; Mixed hyperlipidemia E78.2 ; Hypothyroid E03.9 ; Gastroesophageal reflux disease with esophagitis K21.0 ; Essential (primary) hypertension I10 ; Major depressive disorder, recurrent, in full remission F33.42 ; Chronic obstructive pulmonary disease, unspecified COPD type J44.9 ; Neuropathy G62.9 and Encounter for immunization Z23 [place] [address] [place] [id number] [address] [place] [id number] Jun, Irritable bowel syndrome wit h diarrhea K58.0 [place] [address] [place] [id number] [address] [place] [id number] May, Chronic pain G89.29 [facility] [address] [facility] [id number] [address] [place] [id number] May, Type 2 diabetes mellitus wit h hyperglycemia E11.65 and Neuropathy G62.9 [place] [address] [facility] [id number] [address] [place] [address] May, Chronic pain G89.29 [place] [id number] [facility] [id number] [address] [place] [address] Apr, Poison maryam dermatitis L23.7 [place] [address] [place] [id number] [address] [place] [address] Apr, Chronic pain G89.29 [facility] [address] [facility] [id number] [address] [place] [address] March, Type 2 diabetes mellitus wit h hyperglycemia E11.65 [facility] [address] [facility] [id number] [address] [place] [id number] March, Chronic pain G89.29 [facility] [address] [facility] [id number] [address] [place] [phone] March, [id number] [place] [phone] Feb, [facility] [address] [facility] [id number] [address] [place] [phone] Feb, Other chronic pain G89.29 an d Chronic pain G89.29 [facility] [address] [facility] [id number] [address] [place] [address] Jan, Mixed hyperlipidemia E78.2 [facility] [address] [facility] [id number] [address] [place] [id number] Jan, Chronic pain G89.29 [facility] [address] [facility] [id number] [address] [place] [address] Jan, Type 2 diabetes mellitus wit h hyperglycemia E11.65 ; Mixed hyperlipidemia E78.2 ; 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 ; Acquired hypothyroidism E03.9 and Essential (primary) hypertension I10 [facility] [address] [facility] [id number] [address] [place] [address] Dec, Chronic pain G89.29 [facility] [address] [facility] [id number] [address] [place] [phone] Nov, Chronic pain G89.29 [facility] [address] [facility] [id number] [address] [place] [address] Nov, [facility] [address] [facility] [id number] [address] [place] [address] Oct, Chronic pain G89.29 [facility] [address] [facility] [id number] [address] [place] [address] Oct, [facility] [address] [facility] [id number] [address] [place] [phone] Sep, [facility] [address] [facility] [id number] [address] [place] [address] Sep, Type 2 diabetes mellitus wit h hyperglycemia E11.65 [place] [address] [facility] [id number] [address] [place] [address] Sep, Chronic pain G89.29 [place] [address] [facility] [id number] [address] [place] [phone] Sep, [place] [address] [place] [id number] [address] [place] [address] Sep, Type 2 diabetes mellitus wit h hyperglycemia E11.65 ; Irritable bowel syndrome with diarrhea K58.0 ; Gastroparesis K31.84 ; 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 and Dermatitis L30.9 [place] [address] [place] [id number] [address] [place] [address] Aug, Chronic pain G89.29 [place] [address] [place] [id number] [address] [place] [address] Jul, Chronic pain G89.29 [place] [address] [place] [id number] [address] [place] [address] Jun, Type 2 diabetes mellitus wit h hyperglycemia E11.65 ; Neuropathy G62.9 ; Recurrent major depressive disorder, in partial remission F33.41 ; Chronic pain G89.29 and Hypertriglyceridemia E78.1 [place] [address] [place] [id number] [address] [place] [id number] Jun, Hypothyroid E03.9 [place] [address] [place] [id number] [address] [place] [phone] Jun, Major depressive disorder, r ecurrent episode, moderate F33.1 and Anxiety disorder, unspecified type F41.9 [place] [address] [facility] [id number] [address] [place] [address] Jun, [place] [address] [facility] [id number] [address] [place] [address] Jun, Type 2 diabetes mellitus wit h hyperglycemia E11.65 ; 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 ; Recurrent major depressive disorder, in partial remission F33.41 ; Hypothyroid E03.9 ; Candidal dermatitis B37.2 and Weakness generalized R53.1 [place] [address] [id number] [address] [place] [address] May, [place] [address] [place] [id number] [address] [place] [phone] May, [place] [address] [place] [id number] [address] [place] [phone] May, [place] [address] [facility] [id number] [address] [place] [address] May, Generalized abdominal pain R 10.84 and Candidal dermatitis B37.2 [place] [address] [facility] [id number] [address] [place] [address] May, [place] [address] [place] [id number] [address] [place] [id number] May, [place] [address] [place] [id number] [address] [place] [id number] May, Nodular radiologic density R 93.8 ; Weight loss, unintentional R63.4 and Pulmonary emphysema, unspecified emphysema type J43.9 [place] [address] [facility] [id number] [address] [place] [address] May, Chronic pain G89.29 [place] [address] [place] [id number] [address] [place] [id number] 09 May, 2018 Syncope and collapse R55 ; C hronic fatigue R53.[address] lung screening R91.8 [facility] [address] [facility] [id number] [address] [place] [phone] May, [facility] [address] [facility] [id number] [address] [place] [address] Apr, Chronic fatigue R53.82 ; Abn ormal chest CT R93.8 ; Elevated erythrocyte sedimentation rate R70.0 ; Hypothyroid E03.9 and Recurrent major depressive disorder, in partial remission F33.41 [facility] [address] [facility] [id number] [address] [place] [id number] Apr, Hypothyroid E03.9 [place] [address] [facility] [id number] [address] [place] [phone] Apr, Depression F32.9 [facility] [address] [place] [id number] [address] [place] [id number] Apr, [facility] [address] [place] [id number] [address] [place] [id number] March, [facility] [address] [place] [id number] [address] [place] [phone] March, Hypothyroid E03.9 [place] [address] [place] [id number] [place] [phone] March, Diabetes mellitus E11.9 and Hypothyroid E03.9 [place] [address] [place] [id number] [address] [place] [address] March, Diabetes mellitus E11.9 [place] [address] [place] [id number] [address] [place] [address] March, Hypothyroid E03.9 and Elevat ed liver enzymes R74.8 [place] [address] [facility] [id number] [address] [place] [address] March, Type 2 diabetes mellitus wit h hyperglycemia E11.65 ; MCC 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 Z79.4 ; Pulmonary emphysema, unspecified emphysema type J43.9 ; Hypothyroid E03.9 ; Neuropathy G62.9 ; Mixed hyperlipidemia E78.2 ; Chronic pain G89.29 ; Gastroesophageal reflux disease with esophagitis K21.0 ; Irritable bowel syndrome with diarrhea K58.0 ; Overactive bladder N32.81 and Recurrent major depressive disorder, in partial remission F33.41 [place] [address] [place] [id number] [address] [place] [address] Feb, Chronic pain G89.29 [place] [id number] [place] [address] Feb, Type 2 diabetes mellitus wit h hyperglycemia E11.65 and Skin lesion of scalp L98.9 [place] [address] [address] Feb, [place] [address] [address] Jan, Type 2 diabetes mellitus wit h hyperglycemia E11.65 ; 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 ; Essential (primary) hypertension I10 ; Pulmonary emphysema, unspecified emphysema type J43.9 ; Chronic pain G89.29 ; Controlled substance agreement signed Z79.899 ; Hypothyroid E03.9 ; Neuropathy G62.9 ; Gastroesophageal reflux disease with esophagitis K21.0 ; Overactive bladder N32.81 ; Depression F32.9 and Irritable bowel syndrome with diarrhea K58.0 [place] [address] [place] [id number] [address] [place] [phone] Jan, [place] [address] [place] [id number] [address] [place] [address] Jan, Controlled substance agreeme nt signed Z79.899 [place] [address] [place] [id number] [address] [place] [address] Dec, Type 2 diabetes mellitus wit h hyperglycemia E11.65 ; Controlled substance agreement signed Z79.899 ; MCC 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 Z79.4 ; Essential (primary) hypertension I10 ; Hypothyroid E03.9 ; Neuropathy G62.9 ; Depression F32.9 ; Mixed hyperlipidemia E78.2 ; Irritable bowel syndrome with diarrhea K58.0 ; Gastroesophageal reflux disease with esophagitis K21.0 ; Thrombocytosis D47.3 ; Current non-adherence to medical treatment Z91.19 and Overweight (BMI 25.0-29.9) E66.3 [place] [id number] [place] [address] 02 Dec, 2017 Controlled substance agreeme nt signed Z79.899 [place] [address] [address] Nov, Type 2 diabetes mellitus wit h hyperglycemia E11.65 and Current non- adherence to medical treatment Z91.19 [place] [address] [place] [id number] [place] [address] Nov, [place] [address] [address] Nov, Chronic pain G89.29 [place] [address] [address] Nov, [place] [address] [place] [id number] [address] [place] [address] Nov, Hypothyroid E03.9 [place] [address] [place] [id number] [place] [address] Nov, Hypothyroid E03.9 [place] [address] [place] [id number] [place] [address] Nov, Pulmonary emphysema, unspeci fied emphysema type J43.9 and Irritable bowel syndrome with diarrhea K58.0 [place] [address] [place] [id number] [place] [phone] Oct, [place] [address] [address] Oct, [place] [address] [place] [id number] [address] [place] [phone] Oct, [place] [address] [address] Oct, [place] [address] [facility] [id number] [address] [place] [address] Oct, Chronic pain G89.29 [place] [address] [facility] [id number] [address] [place] [address] Oct, Diabetes mellitus E11.9 ; De pression F32.9 ; Mixed hyperlipidemia E78.2 ; Hypotension, unspecified hypotension type I95.9 ; Pulmonary emphysema, unspecified emphysema type J43.9 and Weight loss, unintentional R63.4 [place] [address] [place] [id number] [place] [address] Oct, Chronic pain G89.29 [place] [address] [place] [id number] [place] [address] Sep, Chronic pain G89.29 [place] [address] [place] [id number] [place] [address] Sep, Hypothyroid E03.9 and Diabet es mellitus E11.9 [place] [address] [place] [id number] [address] [place] [address] Aug, Type 2 diabetes mellitus wit h hyperglycemia E11.65 ; 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 ; Essential (primary) hypertension I10 ; Hypothyroid E03.9 ; Neuropathy G62.9 ; Chronic pain G89.29 ; Mixed hy perlipidemia E78.2 and Encounter for immunization Z23 [place] [address] [place] [id number] [place] [address] Aug, Chronic pain G89.29 [place] [address] [place] [id number] [address] [place] [address] Aug, Overactive bladder N32.81 ; Diabetes mellitus E11.9 and Chronic pain G89.29 [place] [address] [facility] [id number] [address] [place] [address] Jul, [place] [address] [place] [id number] [place] [address] Jun, [facility] [address] [id number] [address] [place] [address] Jun, [facility] [address] [id number] [address] [place] [phone] Jun, Hypothyroid E03.9 [facility] [address] [id number] [address] [place] [address] Jun, Diabetes mellitus E11.9 ; Hy pothyroid E03.9 ; Neuropathy G62.9 ; Chronic pain G89.29 and Neck mass R22.1 [facility] [address] [id number] [address] [place] [address] Apr, [facility] [address] [id number] [address] [place] [id number] Apr, Acute cystitis without hemat uria N30.00 [facility] [address] [id number] [address] [place] [phone] March, [facility] [address] [id number] [address] [place] [address] March, [facility] [address] [facility] [id number] [address] [place] [phone] March, Near syncope R55 [facility] [address] [facility] [id number] [address] [place] [address] Feb, [facility] [address] [id number] [address] [place] [address] Feb, Chronic pain G89.29 [facility] [address] [id number] [address] [place] [phone] Feb, [facility] [address] [facility] [id number] [address] [place] [address] Feb, [facility] [address] [id number] [address] [place] [address] Jan, Chronic pain G89.29 [facility] [address] [id number] [address] [place] [address] Jan, [facility] [address] [address] Jan, [facility] [address] [address] 14 Jan, 2017 Diabetes mellitus E11.9 ; Hy pothyroid E03.9 ; GERD (gastroesophageal reflux disease) K21.9 ; Insomnia G47.00 ; Functional 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 ; Neuropathy G62.9 ; Depression F32.9 ; Chronic pain G89.29 ; Irritable bowel syndrome with diarrhea K58.0 ; Overactive bladder N32.81 ; Mixed hyperlipidemia E78.2 and Bronchitis J40 [facility] [address] [address] Dec, [facility] [address] [address] Dec, [facility] [address] [address] Dec, [facility] [address] [address] Dec, [facility] [address] [address] Dec, Chronic pain G89.29 [facility] [address] [address] Dec, [facility] [address] [place] [id number] [address] [place] [address] Dec, [facility] [address] [address] Dec, Type 2 diabetes mellitus wit h foot ulcer E11.621 [facility] [address] [place] [id number] [address] [place] [address] Dec, Type 2 diabetes mellitus wit h foot ulcer E11.621 [facility] [address] [address] 14 Dec, 2016 HTN (hypertension) I10 ; Dep ression F32.9 ; Type 2 diabetes mellitus with foot ulcer E11.621 ; Functional 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 ; Irritable bowel syndrome with diarrhea K58.0 ; Chronic pain G89.29 ; Insomnia G47.00 ; Overactive bladder N32.81 ; Mixed hyperlipidemia E78.2 ; Gastroesophageal reflux disease with esophagitis K21.0 and Acquired hypothyroidism E03.9 [place] [address] [address] Nov, [place] [address] [address] Oct, [place] [address] [address] Oct, [place] [address] [address] Oct, [place] [address] [place] [id number] [place] [address] Sep, Functional 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 ; HTN (hypertension) I10 ; Diabetes mellitus E11.9 ; Depression F32.9 ; Overactive bladder N32.81 ; Mixed hyperlipidemia E78.2 ; Gastroesophageal reflux disease without esophagitis K21.9 ; Chronic pain G89.29 ; Insomnia G47.00 and Acquired hypothyroidism E03.9 [place] [address] [address] Sep, [place] [address] [place] [id number] [place] [id number] Aug, Encounter for immunization Z 23 [place] [address] [address] [place] [id number] [place] [id number] Aug, [place] [address] [address] [place] [id number] [place] [id number] Jul, [place] [address] [address] Jun, Type 2 diabetes mellitus wit hout complications E11.9 ; HTN (hypertension) I10 ; Hypothyroid E03.9 ; Neuropathy G62.9 ; Depression F32.9 ; Chronic pain G89.29 ; GERD (gastroesophageal reflux disease) K21.9 ; Insomnia G47.00 ; Overactive bladder N32.81 ; Mixed hyperlipidemia E78.2 ; Diarrhea of infectious origin A09 and Environmental allergies Z91.09 [place] [address] [address] Apr, [place] [address] [address] March, Hypothyroidism, unspecified E03.9 and Mixed hyperlipidemia E78.2 [place] [address] [address] March, Diabetes mellitus E11.9 ; HT N (hypertension) I10 ; Hypothyroid E03.9 ; Depression F32.9 ; Overactive bladder N32.81 ; Other chronic pain G89.29 ; Lumbago with sciatica, unspecified side M54.40 ; Environmental allergies Z91.09 and Gastroesophageal reflux disease, esophagitis presence not specified K21.9 [place] [address] [address] March, [place] [address] [address] Jan, HTN (hypertension) I10 ; Hyp othyroid E03.9 ; Neuropathy G62.9 ; Diabetes mellitus E11.9 ; Chronic pain G89.29 ; GERD (gastroesophageal reflux disease) K21.9 ; Overactive bladder N32.81 and Depression F32.9 [place] [address] [address] Dec, Ear pain, left H92.02 ; HTN (hypertension) I10 ; Hypothyroid E03.9 ; Neuropathy G62.9 ; Diabetes mellitus E11.9 ; Depression F32.9 ; GERD (gastroesophageal reflux disease) K21.9 ; Insomnia G47.00 and Overactive bladder N32.81 [place] [id number] [facility] [id number] [address] [place] [id number] Nov, Overactive bladder N32.81 an d Chronic pain G89.29 [place] [address] [address] [facility] [id number] [address] [place] [id number] Nov, Kidney failure N19 [place] [address] [address] [facility] [id number] [address] [place] [id number] Nov, [place] [address] [address] [facility] [id number] [address] [place] [id number] Nov, [place] [address] [address] [facility] [id number] [address] [place] [id number] Nov, Diabetes mellitus E11.9 ; De pression F32.9 ; Chronic pain G89.29 ; GERD (gastroesophageal reflux disease) K21.9 ; Insomnia G47.00 ; HTN (hypertension) I10 ; Hypothyroid E03.9 ; COPD (chronic obstructive pulmonary disease) J44.9 ; Bladder incontinence R32 and Incontinence R32 [place] [address] [address] [facility] [id number] [address] [place] [id number] Sep, Type 2 diabetes mellitus wit h foot ulcer E11.621 and Chromosomal abnormality, 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 [place] [address] [place] [id number] [address] [place] [id number] Sep, [place] [address] [address] [facility] [id number] [address] [place] [id number] Aug, [place] [address] [address] [facility] [id number] [address] [place] [phone] Aug, [place] [address] [place] [id number] [address] [place] [id number] Aug, HTN (hypertension) I10 ; Enc ounter for immunization Z23 ; Hypothyroid E03.9 ; Neuropathy G62.9 ; Diabetes mellitus E11.9 ; Depression F32.9 ; Chronic pain G89.29 ; GERD (gastroesophageal reflux disease) K21.9 ; Insomnia G47.00 and COPD (chronic obstructive pulmonary disease) J44.9 [place] [address] [id number] Jun, [facility] [address] [id number] Jun, [place] [address] [id number] May, Essential hypertension, ivis gn 401.1 ; Unspecified hypothyroidism 244.9 ; Insomnia, unspecified 780.52 ; Shortness of breath 786.05 ; Depression 311 ; COPD (chronic obstructive pulmonary disease) 496 ; GERD (gastroesophageal reflux disease) 530.81 and Diabetes 1.5, 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 [place] [address] [id number] May, [place] [address] [id number] May, [place] [address] [id number] May, Shortness of breath 786.05 ; Essential hypertension, benign 401.1 ; Diabetes mellitus 250.00 ; Hyperlipidemia 272.4 ; Hypothyroid 244.9 ; Insomnia 780.52 and Cough 786.2 [place] [address] [id number] Apr, [place] [address] [id number] March, Shortness of breath 786.05 ; Nausea with vomiting 787.01 ; Essential hypertension, benign 401.1 ; Diabetes mellitus 250.00 ; Hyperlipidemia 272.4 and Hypothyroid 244.9 [place] [address] [id number] Feb, [place] [address] [id number] Feb, [facility] [address] [id number] [address] [place] [address], [place] [id number] Jan, [facility] [address] [id number] [address] [place] [address], [place] [id number] Jan, [facility] [address] [id number] [address] [place] [address], [place] [id number] Jan, [facility] [address] [id number] [address] [place] [address], [place] [id number] Jan, [facility] [address] [id number] [address] [place] [address], [place] [id number] Jan, [facility] [address] [id number] [address] [place] [address], [place] [id number] Jan, [facility] [address] [id number] [address] [place] [address], [place] [id number] Jan, [facility] [address] [id number] [address] [place] [address], [place] [id number] Jan, [facility] [address] [id number] [address] [place] [address], [place] [id number] Jan, [facility] [address] [id number] [address] [place] [address], [place] [id number] Jan, [facility] [address] [id number] [address] [place] [address], [place] [id number] Dec, [facility] [address] [id number] [address] [place] [address], [place] [id number] Dec, [facility] [address] [id number] [address] [place] [address], [place] [id number] Dec, [facility] [address] [id number] [address] [place] [address], [place] [id number] Dec, 2014 [facility] [address] [id number] [address] [place] [address], [place] [id number] Dec, 2014 [facility] [address] [id number] [address] [place] [address], [place] [id number] Dec, 2014 [facility] [address] [id number] [address] [place] [address], [place] [id number] Dec, 2014 [facility] [address] [id number] [address] [place] [address], [place] [id number] Dec, 2014 [facility] [address] [id number] [address] [place] [address], [place] [id number] Dec, 2014 [facility] [address] [id number] [address] [place] [address], [place] [id number] Dec, 2014 [facility] [address] [id number] [address] [place] [address], [place] [id number] Oct, [facility] [address] [id number] [address] [place] [address], [place] [id number] Oct, [facility] [address] [id number] [address] [place] [address], [place] [id number] Oct, [facility] [address] [id number] [address] [place] [address], [place] [id number] Oct, [facility] [address] [id number] [address] [place] [address], [place] [id number] Oct, [facility] [address] [id number] [address] [place] [address], [place] [id number] Oct, [facility] [address] [id number] [address] [place] [address], [place] [id number] Oct, [facility] [address] [id number] [address] [place] [address], [place] [id number] Oct, [facility] [address] [id number] [address] [place] [address], [place] [id number] Oct, [facility] [address] [id number] [address] [place] [address], [place] [id number] Oct, [facility] [address] [id number] [address] [place] [address], [place] [id number] Oct, [facility] [address] [id number] [address] [place] [address], [place] [id number] Oct, [facility] [address] [id number] [address] [place] [address], [place] [id number] Oct, [facility] [address] [id number] [address] [place] [address], [place] [id number] Oct, [facility] [address] [id number] [address] [place] [address], [place] [id number] Sep, [facility] [address] [id number] [address] [place] [address], [place] [id number] Sep, [facility] [address] [id number] [address] [place] [address], [place] [id number] Sep, [facility] [address] [id number] [address] [place] [address], [place] [id number] Sep, [facility] [address] [id number] [address] [place] [address], [place] [id number] Sep, [facility] [address] [id number] [address] [place] [address], [place] [id number] Sep, [facility] [address] [id number] [address] [place] [address], [place] [id number] Sep, [facility] [address] [id number] [address] [place] [address], [place] [id number] Sep, [facility] [address] [id number] [address] [place] [address], [place] [id number] Sep, [facility] [address] [id number] [address] [place] [address], [place] [id number] Aug, [facility] [address] [id number] [address] [place] [address], [place] [id number] Aug, [facility] [address] [id number] [address] [place] [address], [place] [id number] Aug, [facility] [address] [id number] [address] [place] [address], [place] [id number] 17 Aug, 2014 [facility] [address] [id number] [address] [place] [address], [place] [id number] 16 Aug, 2014 [facility] [address] [id number] [address] [place] [address], [place] [id number] Aug, [facility] [address] [id number] [address] [place] [address], [place] [id number] Aug, [facility] [address] [id number] [address] [place] [address], [place] [id number] Aug, [facility] [address] [id number] [address] [place] [address], [place] [id number] Aug, [facility] [address] [id number] [address] [place] [address], [place] [id number] 29 Jul, 2013 [facility] [address] [id number] [address] [place] [address], [place] [id number] 29 Jul, 2013 [facility] [address] [id number] [address] [place] [address], [place] [id number] 25 Jul, 2013 [facility] [address] [id number] [address] [place] [address], [place] [id number] 25 Jul, 2013 [facility] [address] [id number] [address] [place] [address], [place] [id number] Jul, 2013 [facility] [address] [id number] [address] [place] [address], [place] [id number] 25 Jul, 2013 [facility] [address] [id number] [address] [place] [address], [place] [id number] 25 Jul, 2013 [facility] [address] [id number] [address] [place] [address], [place] [id number] 25 Jul, 2013 [facility] [address] [id number] [address] [place] [address], [place] [id number] Jul, 2013 [facility] [address] [id number] [address] [place] [address], [place] [id number] 02 Jul, 2013 [facility] [address] [id number] [facility] [place] [id number] Jun, [facility] [address] [id number] [facility] [place] [id number] Jun, [facility] [address] [id number] [facility] [place] [id number] Jun, [facility] [address] [id number] [address] [place] [address], [place] [id number] Jun, [facility] [address] [id number] [facility] [place] [id number] Jun, [facility] [address] [id number] [address] [place] [address], [place] [id number] Jun, [facility] [address] [id number] [address] [place] [address], [place] [id number] Jun, [facility] [address] [id number] [address] [place] [address], [place] [id number] Jun, [facility] [address] [id number] [address] [place] [address], [place] [id number] Jun, [facility] [address] [id number] [address] [place] [address], [place] [id number] Jun, [facility] [address] [id number] [address] [place] [address], [place] [id number] Jun, [facility] [address] [id number] [address] [place] [address], [place] [id number] Jun, [facility] [address] [id number] [address] [place] [address], [place] [id number] May, [facility] [address] [id number] [address] [place] [address], [place] [id number] May, [facility] [address] [id number] [address] [place] [address], [place] [id number] May, [facility] [address] [id number] [address] [place] [address], [place] [id number] May, [facility] [address] [id number] [facility] [place] [id number] May, [facility] [address] [id number] [address] [place] [address], [place] [id number] May, [facility] [address] [id number] [address] [place] [address], [place] [id number] March, [facility] [address] [id number] [address] [place] [address], [place] [id number] March, [facility] [address] [id number] [address] [place] [address], [place] [id number] March, [facility] [address] [id number] [address] [place] [address], [place] [id number] March, [facility] [address] [id number] [address] [place] [address], [place] [id number] March, [facility] [address] [id number] [address] [place] [address], [place] [id number] March, [facility] [address] [id number] [address] [place] [address], [place] [id number] Feb, [facility] [address] [id number] [address] [place] [address], [place] [id number] Feb, [facility] [address] [id number] [address] [place] [address], [place] [id number] Feb, [facility] [address] [id number] [address] [place] [address], [place] [id number] Feb, [facility] [address] [id number] [address] [place] [address], [place] [id number] Jan, [facility] [address] [id number] [address] [place] [address], [place] [id number] Jan, [facility] [address] [id number] [address] [place] [address], [place] [id number] Jan, [facility] [address] [id number] [address] [address] Jan, [facility] [address] [id number] [address] [place] [address], [place] [id number] Jan, [facility] [address] [id number] [address] [place] [address], [place] [id number] Jan, [facility] [address] [id number] [address] [place] [address], [place] [id number] Jan, [facility] [address] [id number] [address] [place] [address], [place] [id number] Jan, [facility] [address] [id number] [address] [place] [address], [place] [id number] Jan, [facility] [address] [id number] [address] [place] [address], [place] [id number] Jan, [facility] [address] [id number] [address] [place] [address], [place] [id number] Jan, [facility] [address] [id number] [address] [place] [address], [place] [id number] Jan, [facility] [address] [id number] [address] [place] [address], [place] [id number] Dec, [facility] [address] [id number] [address] [place] [address], [place] [id number] Dec, [facility] [address] [id number] [address] [place] [address], [place] [id number] Dec, [facility] [address] [id number] [address] [place] [address], [place] [id number] Dec, [facility] [address] [id number] [address] [place] [address], [place] [id number] Dec, [facility] [address] [id number] [address] [place] [address], [place] [id number] Dec, [facility] [address] [id number] [address] [place] [address], [place] [id number] Nov, [facility] [address] [id number] [address] [place] [address], [place] [id number] Nov, [facility] [address] [id number] [address] [place] [address], [place] [id number] Oct, [facility] [address] [id number] [address] [place] [address], [place] [id number] Oct, [facility] [address] [id number] [address] [place] [address], [place] [id number] Oct, [facility] [address] [id number] [address] [place] [address], [place] [id number] Oct, [facility] [address] [id number] [address] [place] [address], [place] [id number] Oct, [facility] [address] [id number] [address] [place] [address], [place] [id number] Oct, [facility] [address] [id number] [address] [place] [address], [place] [id number] Sep, [facility] [address] [id number] [address] [place] [address], [place] [id number] Sep, [facility] [address] [id number] [address] [place] [address], [place] [id number] Sep, [facility] [address] [id number] [address] [place] [address], [place] [id number] Sep, [facility] [address] [id number] [address] [place] [address], [place] [id number] Aug, [facility] [address] [id number] [address] [place] [address], [place] [id number] Aug, [facility] [address] [id number] [address] [place] [address], [place] [id number] Aug, [facility] [address] [id number] [address] [place] [address], [place] [id number] 17 Jul, 2013 [facility] [address] [id number] [address] [place] [address], [place] [id number] 14 Jul, 2013 [facility] [address] [id number] [address] [place] [address], [place] [id number] Jul, [facility] [address] [id number] [address] [place] [address], [place] [id number] Jun, [facility] [address] [id number] [address] [place] [address], [place] [id number] Jun, [facility] [address] [id number] [address] [place] [address], [place] [id number] Jun, [facility] [address] [id number] [address] [place] [address], [place] [id number] Apr, [facility] [address] [id number] [address] [place] [address], [place] [id number] Apr, [facility] [address] [id number] [address] [place] [address], [place] [id number] March, [facility] [address] [id number] [address] [place] [address], [place] [id number] March, [facility] [address] [id number] [address] [place] [address], [place] [id number] March, [facility] [address] [id number] [address] [place] [address], [place] [id number] March, [facility] [address] [id number] [address] [place] [address], [place] [id number] Feb, [facility] [address] [id number] [address] [place] [address], [place] [id number] Jan, [facility] [address] [id number] [address] [place] [address], [place] [id number] Dec, [facility] [address] [id number] [address] [place] [address], [place] [id number] Dec, [facility] [address] [id number] [address] [place] [address], [place] [id number] Dec, [facility] [address] [id number] [address] [place] [address], [place] [id number] Nov, [facility] [address] [id number] [address] [place] [address], [place] [id number] Oct, [facility] [address] [id number] [address] [place] [address], [place] [id number] Oct, [facility] [address] [id number] [address] [place] [address], [place] [id number] Sep, [facility] [address] [id number] [address] [place] [address], [place] [id number] Sep, [facility] [address] [id number] [address] [place] [address], [place] [id number] Sep, [facility] [address] [id number] [address] [place] [address], [place] [id number] Sep, [facility] [address] [id number] [address] [place] [address], [place] [id number] Sep, [facility] [address] [id number] [address] [place] [address], [place] [id number] Sep, [facility] [address] [id number] [address] [place] [address], [place] [id number] Sep, [facility] [address] [id number] [address] [place] [address], [place] [id number] Aug, [facility] [address] [id number] [address] [place] [address], [place] [id number] Aug, [facility] [address] [id number] [address] [place] [address], [place] [id number] Aug, [facility] [address] [id number] [address] [place] [address], [place] [id number] Aug, [facility] [address] [id number] [address] [place] [address], [place] [id number] Aug, [facility] [address] [id number] [address] [place] [address], [place] [id number] Aug, [facility] [address] [id number] [address] [place] [address], [place] [id number] Aug, [facility] [address] [id number] [address] [place] [address], [place] [id number] Aug, [facility] [address] [id number] [address] [place] [address], [place] [id number] Jul, [facility] [address] [id number] [address] [place] [address], [place] [id number] Jul, [facility] [address] [id number] [address] [place] [address], [place] [id number] Jun, [facility] [address] [id number] [address] [place] [address], [place] [id number] May, [facility] [address] [id number] [address] [place] [address], [place] [id number] Apr, [facility] [address] [id number] [address] [place] [address], [place] [id number] Apr, [facility] [address] [id number] [address] [place] [address], [place] [id number] Apr, [facility] [address] [id number] [address] [place] [address], [place] [id number] March, [facility] [address] [id number] [address] [place] [address], [place] [id number] March, [facility] [address] [id number] [address] [place] [address], [place] [id number] March, [facility] [address] [id number] [address] [place] [address], [place] [id number] March, [facility] [address] [id number] [address] [place] [address], [place] [id number] March, [facility] [address] [id number] [address] [place] [address], [place] [id number] March, [facility] [address] [id number] [address] [place] [id number] March, [facility] [address] [id number] [address] [place] [address], [place] [id number] Jan, [facility] [address] [id number] [address] [place] [address], [place] [id number] Jan, [facility] [address] [id number] [address] [place] [address], [place] [id number] Jan, [facility] [address] [id number] [address] [place] [address], [place] [id number] 13 Jan, 2012 [facility] [address] [id number] [address] [place] [address], [place] [id number] Jan, [facility] [address] [id number] [address] [place] [address], [place] [id number] 08 Dec, 2011 [facility] [address] [id number] [address] [place] [address], [place] [id number] Dec, [facility] [address] [id number] [address] [place] [address], [place] [id number] Nov, [facility] [address] [id number] [address] [place] [address], [place] [id number] Nov, [facility] [address] [id number] [address] [place] [address], [place] [id number] Nov, [facility] [address] [id number] [address] [place] [address], [place] [id number] Nov, [facility] [address] [id number] [address] [place] [address], [place] [id number] Oct, [facility] [address] [id number] [address] [place] [address], [place] [id number] Oct, [facility] [address] [id number] [address] [place] [address], [place] [id number] 14 Sep, 2011 [facility] [address] [id number] [address] [place] [address], [place] [id number] Sep, [facility] [address] [id number] [address] [place] [address], [place] [id number] 10 Sep, 2011 [facility] [address] [id number] [address] [place] [address], [place] [id number] May, [facility] [address] [id number] [address] [place] [address], [place] [id number] Nov, [facility] [address] [id number] [address] [place] [address], [place] [id number] 29 Oct, 2010 [facility] [address] [id number] [address] [place] [address], [place] [id number] 14 Oct, 2010 [facility] [address] [id number] [address] [place] [address], [place] [id number] 08 Oct, 2010 [facility] [address] [id number] [address] [place] [address], [place] [id number] 15 Sep, 2010 [facility] [address] [id number] [address] [place] [address], [place] [id number] Sep, [facility] [address] [id number] [address] [place] [address], [place] [id number] Aug, [facility] [address] [id number] [address] [place] [address], [place] [id number] March, [facility] [address] [id number] [address] [place] [address], [place] [id number] 17 Oct, 2009 [facility] [address] [id number] [address] [place] [address], [place] [id number] 17 Oct, 2009 [facility] [address] [id number] [address] [place] [address], [place] [id number] Oct, [facility] [address] [id number] [address] [place] [address], [place] [id number] Oct, [facility] [address] [id number] [address] [place] [address], [place] [id number] Sep, [facility] [address] [id number] [address] [place] [address], [place] [id number] Sep, [facility] [address] [facility] [id number] [address] [place] [id number] Sep, [facility] [address] [facility] [id number] [address] [place] [id number] Aug, [facility] [address] [facility] [id number] [address] [place] [id number] Aug, [facility] [address] [facility] [id number] [address] [place] [id number] Aug, [facility] [address] [facility] [id number] [address] [place] [id number] Jan, IMMUNIZATIONS No Known Immunizations SOCIAL HISTORY [...]
--- OUTSIDE RECORDS SUMMARY | 2020-06-13 15:58 | XMS REPORT ---
Author Author Jah Durant Doctor Organization [facility] Address Unknown Phone Unavailable Care Team Providers Care Adaptive Physical Educator Name Role Phone Migration, Doctor Unavailable Unavailable PROBLEMS Type Condition ICD9-CM Code CCT22-LR Code Onset Dates Condition S tatus SNOMED Code Problem Chronic pain G89.29 Active 5525743 1 Problem Hypothyroid E03.9 Active 70475096 Problem Neuropathy G62.9 Active 852303833 Problem Mixed hyperlipidemia E78.2 Active 011747417 Problem Overactive bladder N32.81 Active 2 52954084 Problem halfway 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 Z79.4 Active 517946465 Problem Type 2 diabetes mellitus with hyperglycemia E11.65 Active 24378365 Problem Essential (primary) hypertension I10 Active 41631936 Problem Major depressive disorder, recurrent, in full remission F33.42 Active 88737323 Problem Irritable bowel syndrome with diarrhea K58.0 Active 513106161 Problem halfway (current) use of insulin Z79.4 Active 284602592 Problem Gastroesophageal reflux disease with esophagitis K 21.0 Active 824376911 Problem Anxiety disorder, unspecified type F41.9 Active 595736224 Problem Gastroparesis K31.84 Active 673411 006 Problem 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 Active 031924707 Problem Chronic obstructive pulmonary disease, unspecified COPD ty pe J44.9 Active 62322777 ALLERGIES No Information ENCOUNTERS Encounter Location Date Diagnosis [facility] [address] [facility] [place] [id number] [address] [place] [address] 03 Feb, 2020 Chronic pain G89.29 [facility] [address] [facility] [place] [id number] [address] [place] [address] 13 Jan, 2020 Type 2 diabetes mellitus wit h hyperglycemia E11.65 ; halfway (current) use of insulin Z79.4 and Hyperkalemia E87.5 [facility] [address] [facility] [place] [id number] [address] [place] [address] 10 Jan, 2020 Type 2 diabetes mellitus wit h diabetic autonomic (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 ; Hypothyroid E03.9 ; Dyshydrosis L30.1 and Irritable bowel syndrome with diarrhea K58.0 [facility] [address] [place] [id number] [address] [place] [address] Jan, Chronic pain G89.29 [facility] [address] [place] [address] Dec, Chronic pain G89.29 [facility] [address] [place] [id number] [address] [place] [address] Dec, [facility] [address] [place] [address] Dec, [facility] [address] [place] [id number] [address] [place] [address] Nov, Chronic pain G89.29 [place] [address] [place] [address] Oct, Chronic pain G89.29 [place] [address] [place] [address] Sep, Chronic pain G89.29 [place] [address] [place] [id number] [address] [place] [address] Sep, Type 2 diabetes mellitus wit h diabetic autonomic (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 ; Irritable bowel syndrome with diarrhea K58.0 ; Essential (primary) hypertension I10 and Encounter for immunization Z23 [facility] [address] [place] [id number] [address] [place] [address] Aug, Chronic pain G89.29 [place] [address] [place] [id number] [address] [place] [address] Aug, [place] [address] [place] [id number] [address] [place] [address] Jul, Chronic pain G89.29 [place] [address] [place] [id number] [address] [place] [address] Jun, Other chronic pain G89.29 [facility] [address] [facility] [place] [id number] [address] [place] [address] Jun, [place] [address] [facility] [place] [id number] [address] [place] [address] Jun, Chronic pain G89.29 [place] [address] [facility] [place] [id number] [address] [place] [address] Jun, Neuropathy G62.9 [place] [address] [facility] [place] [id number] [address] [place] [address] Jun, [facility] ; Type 2 diabetes mellitus with hyperglycemia E11.65 ; Mixed hyperlipidemia E78.2 ; Hypothyroid E03.9 ; Gastroesophageal reflux disease with esophagitis K21.0 ; Essential (primary) hypertension I10 ; Major depressive disorder, recurrent, in full remission F33.42 ; Chronic obstructive pulmonary disease, unspecified COPD type J44.9 ; Neuropathy G62.9 and Encounter for immunization Z23 [place] [address] [facility] [place] [id number] [address] [place] [address] Jun, Irritable bowel syndrome wit h diarrhea K58.0 [place] [address] [facility] [place] [id number] [address] [place] [address] May, Chronic pain G89.29 [place] [address] [facility] [place] [id number] [address] [place] [address] May, Type 2 diabetes mellitus wit h hyperglycemia E11.65 and Neuropathy G62.9 [place] [address] [facility] [place] [id number] [address] [place] [address] May, Chronic pain G89.29 [place] [address] [facility] [place] [id number] [address] [place] [address] Apr, Poison maryam dermatitis L23.7 [place] [address] [facility] [place] [id number] [address] [place] [address] Apr, Chronic pain G89.29 [place] [address] [place] [id number] [address] [place] [address] March, Type 2 diabetes mellitus wit h hyperglycemia E11.65 [facility] [address] [facility] [place] [id number] [address] [place] [address] March, Chronic pain G89.29 [facility] [address] [facility] [place] [id number] [address] [place] [address] March, [address] [place] [address] Feb, [facility] [address] [facility] [place] [id number] [address] [place] [address] Feb, Other chronic pain G89.29 an d Chronic pain G89.29 [facility] [address] [facility] [place] [id number] [address] [place] [address] Jan, Mixed hyperlipidemia E78.2 [facility] [address] [facility] [place] [id number] [address] [place] [address] Jan, Chronic pain G89.29 [facility] [address] [facility] [place] [id number] [address] [place] [address] Jan, Type 2 diabetes mellitus wit h hyperglycemia E11.65 ; Mixed hyperlipidemia E78.2 ; 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.4 ; Acquired hypothyroidism E03.9 and Essential (primary) hypertension I10 [facility] [address] [facility] [place] [id number] [address] [place] [address] Dec, Chronic pain G89.29 [facility] [address] [facility] [place] [id number] [address] [place] [address] Nov, Chronic pain G89.29 [facility] [address] [facility] [place] [id number] [address] [place] [address] Nov, [facility] [address] [facility] [place] [id number] [address] [place] [address] Oct, Chronic pain G89.29 [facility] [address] [facility] [place] [id number] [address] [place] [address] Oct, [place] [address] [facility] [place] [id number] [address] [place] [address] Sep, [place] [address] [place] [id number] [address] [place] [address] Sep, Type 2 diabetes mellitus wit h hyperglycemia E11.65 [place] [address] [place] [id number] [place] [address] Sep, Chronic pain G89.29 [place] [address] [place] [id number] [address] [place] [address] Sep, [place] [address] [place] [id number] [place] [address] Sep, Type 2 diabetes mellitus wit h hyperglycemia E11.65 ; Irritable bowel syndrome with diarrhea K58.0 ; Gastroparesis K31.84 ; 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 and Dermatitis L30.9 [place] [address] [place] [address] Aug, Chronic pain G89.29 [place] [address] [address] Jul, Chronic pain G89.29 [place] [address] [address] Jun, Type 2 diabetes mellitus wit h hyperglycemia E11.65 ; Neuropathy G62.9 ; Recurrent major depressive disorder, in partial remission F33.41 ; Chronic pain G89.29 and Hypertriglyceridemia E78.1 [place] [address] [place] [id number] [address] [place] [address] Jun, Hypothyroid E03.9 [place] [address] [place] [id number] [address] [place] [address] Jun, Major depressive disorder, r ecurrent episode, moderate F33.1 and Anxiety disorder, unspecified type F41.9 [place] [address] [place] [id number] [address] [place] [address] Jun, [facility] [address] [facility] [place] [id number] [address] [place] [address] Jun, Type 2 diabetes mellitus wit h hyperglycemia E11.65 ; halfway 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 Z79.4 ; Recurrent major depressive disorder, in partial remission F33.41 ; Hypothyroid E03.9 ; Candidal dermatitis B37.2 and Weakness generalized R53.1 [place] [address] [facility] [place] [id number] [address] [place] [address] May, [facility] [address] [place] [id number] [address] [place] [address] May, [place] [address] [place] [id number] [place] [address] May, [place] [address] [place] [id number] [place] [address] May, Generalized abdominal pain R 10.84 and Candidal dermatitis B37.2 [place] [address] [place] [id number] [address] [place] [address] May, [place] [address] [place] [id number] [place] [address] May, [place] [address] [place] [id number] [place] [address] May, Nodular radiologic density R 93.8 ; Weight loss, unintentional R63.4 and Pulmonary emphysema, unspecified emphysema type J43.9 [place] [address] [place] [id number] [address] [place] [address] May, Chronic pain G89.29 [place] [address] [place] [id number] [place] [address] May, Syncope and collapse R55 ; C hronic fatigue R53.[address] lung screening R91.8 [place] [address] [place] [id number] [place] [address] May, [facility] [address] [facility] [place] [id number] [address] [place] [address] Apr, Chronic fatigue R53.82 ; Abn ormal chest CT R93.8 ; Elevated erythrocyte sedimentation rate R70.0 ; Hypothyroid E03.9 and Recurrent major depressive disorder, in partial remission F33.41 [facility] [address] [facility] [place] [id number] [address] [place] [address] Apr, Hypothyroid E03.9 [facility] [address] [facility] [place] [id number] [address] [place] [address] Apr, Depression F32.9 [facility] [address] [facility] [place] [id number] [address] [place] [address] Apr, [facility] [address] [facility] [place] [id number] [address] [place] [address] March, [facility] [address] [facility] [place] [id number] [address] [place] [address] March, Hypothyroid E03.9 [facility] [address] [facility] [place] [id number] [address] [place] [address] March, Diabetes mellitus E11.9 and Hypothyroid E03.9 [facility] [address] [facility] [place] [id number] [address] [place] [address] March, Diabetes mellitus E11.9 [facility] [address] [facility] [place] [id number] [address] [place] [address] March, Hypothyroid E03.9 and Elevat ed liver enzymes R74.8 [facility] [address] [facility] [place] [id number] [address] [place] [address] March, Type 2 diabetes mellitus wit h hyperglycemia E11.65 ; halfway 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 Z79.4 ; Pulmonary emphysema, unspecified emphysema type J43.9 ; Hypothyroid E03.9 ; Neuropathy G62.9 ; Mixed hyperlipidemia E78.2 ; Chronic pain G89.29 ; Gastroesophageal reflux disease with esophagitis K21.0 ; Irritable bowel syndrome with diarrhea K58.0 ; Overactive bladder N32.81 and Recurrent major depressive disorder, in partial remission F33.41 [place] [address] [place] [id number] [address] [place] [address] Feb, Chronic pain G89.29 [place] [address] [place] [id number] [address] [place] [address] Feb, Type 2 diabetes mellitus wit h hyperglycemia E11.65 and Skin lesion of scalp L98.9 [place] [address] [place] [id number] [address] [place] [address] Feb, [place] [address] [place] [id number] [address] [place] [address] Jan, Type 2 diabetes mellitus wit h hyperglycemia E11.65 ; halfway 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 Z79.4 ; Essential (primary) hypertension I10 ; Pulmonary emphysema, unspecified emphysema type J43.9 ; Chronic pain G89.29 ; Controlled substance agreement signed Z79.899 ; Hypothyroid E03.9 ; Neuropathy G62.9 ; Gastroesophageal reflux disease with esophagitis K21.0 ; Overactive bladder N32.81 ; Depression F32.9 and Irritable bowel syndrome with diarrhea K58.0 [place] [address] [place] [id number] [address] [place] [address] Jan, [place] [address] [place] [id number] [address] [place] [address] Jan, Controlled substance agreeme nt signed Z79.899 [place] [address] [place] [id number] [address] [place] [address] Dec, Type 2 diabetes mellitus wit h hyperglycemia E11.65 ; Controlled substance agreement signed Z79.899 ; halfway 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 Z79.4 ; Essential (primary) hypertension I10 ; Hypothyroid E03.9 ; Neuropathy G62.9 ; Depression F32.9 ; Mixed hyperlipidemia E78.2 ; Irritable bowel syndrome with diarrhea K58.0 ; Gastroesophageal reflux disease with esophagitis K21.0 ; Thrombocytosis D47.3 ; Current non-adherence to medical treatment Z91.19 and Overweight (BMI 25.0-29.9) E66.3 [facility] [address] [facility] [place] [id number] [address] [place] [address] Dec, Controlled substance agreeme nt signed Z79.899 [facility] [address] [facility] [place] [id number] [address] [place] [address] Nov, Type 2 diabetes mellitus wit h hyperglycemia E11.65 and Current non- adherence to medical treatment Z91.19 [facility] [address] [facility] [place] [id number] [address] [place] [address] Nov, [facility] [address] [place] [id number] [address] [place] [address] Nov, Chronic pain G89.29 [place] [address] [place] [id number] [address] [place] [address] Nov, [place] [address] [place] [id number] [address] [place] [address] Nov, Hypothyroid E03.9 [facility] [address] [facility] [place] [id number] [address] [place] [address] Nov, Hypothyroid E03.9 [place] [address] [place] [id number] [address] [place] [address] Nov, Pulmonary emphysema, unspeci fied emphysema type J43.9 and Irritable bowel syndrome with diarrhea K58.0 [place] [address] [place] [id number] [address] [place] [address] Oct, [facility] [address] [place] [id number] [address] [place] [address] Oct, [place] [address] [place] [address] Oct, [facility] [address] [place] [id number] [address] [place] [address] Oct, [place] [address] [place] [id number] [address] [place] [address] Oct, Chronic pain G89.29 [place] [address] [address] Oct, Diabetes mellitus E11.9 ; De pression F32.9 ; Mixed hyperlipidemia E78.2 ; Hypotension, unspecified hypotension type I95.9 ; Pulmonary emphysema, unspecified emphysema type J43.9 and Weight loss, unintentional R63.4 [place] [address] [address] Oct, Chronic pain G89.29 [place] [address] [address] Sep, Chronic pain G89.29 [place] [address] [address] Sep, Hypothyroid E03.9 and Diabet es mellitus E11.9 [place] [address] [address] Aug, Type 2 diabetes mellitus wit h hyperglycemia E11.65 ; halfway 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 Z79.4 ; Essential (primary) hypertension I10 ; Hypothyroid E03.9 ; Neuropathy G62.9 ; Chronic pain G89.29 ; Mixed hy perlipidemia E78.2 and Encounter for immunization Z23 [place] [address] [address] Aug, Chronic pain G89.29 [place] [address] [address] Aug, Overactive bladder N32.81 ; Diabetes mellitus E11.9 and Chronic pain G89.29 [place] [address] [address] Jul, [place] [address] [address] Jun, [place] [address] [address] Jun, [place] [address] [facility] [place] [id number] [address] [place] [address] Jun, Hypothyroid E03.9 [facility] [address] [facility] [place] [id number] [address] [place] [address] Jun, Diabetes mellitus E11.9 ; Hy pothyroid E03.9 ; Neuropathy G62.9 ; Chronic pain G89.29 and Neck mass R22.1 [facility] [address] [id number] [address] [place] [address] Apr, [facility] [address] [facility] [place] [id number] [address] [place] [address] Apr, Acute cystitis without hemat uria N30.00 [facility] [address] [facility] [place] [id number] [address] [place] [address] March, [facility] [address] [facility] [place] [id number] [address] [place] [address] March, [facility] [address] [facility] [place] [id number] [address] [place] [address] March, Near syncope R55 [facility] [address] [facility] [place] [id number] [address] [place] [address] Feb, [facility] [address] [facility] [place] [id number] [address] [place] [address] Feb, Chronic pain G89.29 [facility] [address] [facility] [place] [id number] [address] [place] [address] Feb, [facility] [address] [facility] [place] [id number] [address] [place] [address] Feb, [facility] [address] [facility] [place] [id number] [address] [place] [address] Jan, Chronic pain G89.29 [facility] [address] [facility] [place] [id number] [address] [place] [address] Jan, [facility] [address] [facility] [place] [id number] [address] [place] [address] 16 Jan, 2017 [facility] [address] [place] [id number] [address] [place] [address] 14 Jan, 2017 Diabetes mellitus E11.9 ; Hy pothyroid E03.9 ; GERD (gastroesophageal reflux disease) K21.9 ; Insomnia G47.00 ; Functional 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 ; Neuropathy G62.9 ; Depression F32.9 ; Chronic pain G89.29 ; Irritable bowel syndrome with diarrhea K58.0 ; Overactive bladder N32.81 ; Mixed hyperlipidemia E78.2 and Bronchitis J40 [facility] [address] [facility] [place] [id number] [address] [place] [address] Dec, [facility] [address] [place] [id number] [address] [place] [address] 24 Dec, 2016 [facility] [address] [place] [id number] [address] [place] [address] Dec, [facility] [address] [place] [id number] [place] [address] Dec, [facility] [address] [facility] [place] [id number] [address] [place] [address] Dec, Chronic pain G89.29 [facility] [address] [facility] [place] [id number] [address] [place] [id number] 23 Dec, 2016 [facility] [address] [place] [id number] [address] [place] [address] 20 Dec, 2016 [facility] [address] [place] [id number] [address] [place] [address] 17 Dec, 2016 Type 2 diabetes mellitus wit h foot ulcer E11.621 [facility] [address] [place] [id number] [address] [place] [address] 17 Dec, 2016 Type 2 diabetes mellitus wit h foot ulcer E11.621 [facility] [address] [place] [id number] [address] [place] [address] 14 Dec, 2016 HTN (hypertension) I10 ; Dep ression F32.9 ; Type 2 diabetes mellitus with foot ulcer E11.621 ; Functional 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 ; Irritable bowel syndrome with diarrhea K58.0 ; Chronic pain G89.29 ; Insomnia G47.00 ; Overactive bladder N32.81 ; Mixed hyperlipidemia E78.2 ; Gastroesophageal reflux disease with esophagitis K21.0 and Acquired hypothyroidism E03.9 [place] [id number] [place] [id number] Nov, [place] [address] [id number] [place] [id number] Oct, [place] [address] [id number] [place] [id number] Oct, [place] [address] [id number] [place] [phone] Oct, [place] [address] [id number] [place] [phone] Sep, Functional 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 ; HTN (hypertension) I10 ; Diabetes mellitus E11.9 ; Depression F32.9 ; Overactive bladder N32.81 ; Mixed hyperlipidemia E78.2 ; Gastroesophageal reflux disease without esophagitis K21.9 ; Chronic pain G89.29 ; Insomnia G47.00 and Acquired hypothyroidism E03.9 [place] [address] [place] [id number] [place] [address] Sep, [place] [address] [place] [id number] [place] [address] Aug, Encounter for immunization Z 23 [place] [address] [place] [id number] [address] [place] [address] Aug, [place] [address] [place] [id number] [place] [address] Jul, [place] [address] [place] [id number] [address] [place] [address] Jun, Type 2 diabetes mellitus wit hout complications E11.9 ; HTN (hypertension) I10 ; Hypothyroid E03.9 ; Neuropathy G62.9 ; Depression F32.9 ; Chronic pain G89.29 ; GERD (gastroesophageal reflux disease) K21.9 ; Insomnia G47.00 ; Overactive bladder N32.81 ; Mixed hyperlipidemia E78.2 ; Diarrhea of infectious origin A09 and Environmental allergies Z91.09 [place] [address] [address] Apr, [place] [address] [address] March, Hypothyroidism, unspecified E03.9 and Mixed hyperlipidemia E78.2 [place] [address] [address] March, Diabetes mellitus E11.9 ; HT N (hypertension) I10 ; Hypothyroid E03.9 ; Depression F32.9 ; Overactive bladder N32.81 ; Other chronic pain G89.29 ; Lumbago with sciatica, unspecified side M54.40 ; Environmental allergies Z91.09 and Gastroesophageal reflux disease, esophagitis presence not specified K21.9 [place] [address] [address] March, [place] [address] [address] Jan, HTN (hypertension) I10 ; Hyp othyroid E03.9 ; Neuropathy G62.9 ; Diabetes mellitus E11.9 ; Chronic pain G89.29 ; GERD (gastroesophageal reflux disease) K21.9 ; Overactive bladder N32.81 and Depression F32.9 [place] [address] [address] 12 Dec, 2015 Ear pain, left H92.02 ; HTN (hypertension) I10 ; Hypothyroid E03.9 ; Neuropathy G62.9 ; Diabetes mellitus E11.9 ; Depression F32.9 ; GERD (gastroesophageal reflux disease) K21.9 ; Insomnia G47.00 and Overactive bladder N32.81 [place] [address] [address] Nov, Overactive bladder N32.81 an d Chronic pain G89.29 [place] [address] [address] Nov, Kidney failure N19 [place] [address] [address] Nov, [place] [address] [address] Nov, [place] [address] [address] Nov, Diabetes mellitus E11.9 ; De pression F32.9 ; Chronic pain G89.29 ; GERD (gastroesophageal reflux disease) K21.9 ; Insomnia G47.00 ; HTN (hypertension) I10 ; Hypothyroid E03.9 ; COPD (chronic obstructive pulmonary disease) J44.9 ; Bladder incontinence R32 and Incontinence R32 [place] [address] [address] Sep, Type 2 diabetes mellitus wit h foot ulcer E11.621 and Chromosomal abnormality, 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 [place] [address] [address] Sep, [place] [address] [address] Aug, [place] [address] [address] Aug, [place] [address] [address] Aug, HTN (hypertension) I10 ; Enc ounter for immunization Z23 ; Hypothyroid E03.9 ; Neuropathy G62.9 ; Diabetes mellitus E11.9 ; Depression F32.9 ; Chronic pain G89.29 ; GERD (gastroesophageal reflux disease) K21.9 ; Insomnia G47.00 and COPD (chronic obstructive pulmonary disease) J44.9 [place] [address] [place] [address] Jun, [facility] [address] [address] Jun, [facility] [address] [address] May, Essential hypertension, ivis gn 401.1 ; Unspecified hypothyroidism 244.9 ; Insomnia, unspecified 780.52 ; Shortness of breath 786.05 ; Depression 311 ; COPD (chronic obstructive pulmonary disease) 496 ; GERD (gastroesophageal reflux disease) 530.81 and Diabetes 1.5, 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 [facility] [address] [address] May, [facility] [address] [address] May, [facility] [address] [address] May, Shortness of breath 786.05 ; Essential hypertension, benign 401.1 ; Diabetes mellitus 250.00 ; Hyperlipidemia 272.4 ; Hypothyroid 244.9 ; Insomnia 780.52 and Cough 786.2 [facility] [address] [address] Apr, [facility] [address] [address] March, Shortness of breath 786.05 ; Nausea with vomiting 787.01 ; Essential hypertension, benign 401.1 ; Diabetes mellitus 250.00 ; Hyperlipidemia 272.4 and Hypothyroid 244.9 [facility] [address] [address] Feb, [facility] [address] [address] Feb, [facility] [address] [address] Jan, [facility] [address] [place] [address] 24 Jan, 2015 [facility] [address] [id number] [address] [place] [address], [place] [address] Jan, [facility] [address] [id number] [address] [place] [address], [place] [address] Jan, [facility] [address] [id number] [address] [place] [address], [place] [address] Jan, 2014 [facility] [address] [id number] [address] [place] [address], [place] [address] 05 Jan, 2015 [facility] [address] [id number] [address] [place] [address], [place] [address] Jan, [facility] [address] [id number] [address] [place] [address], [place] [address] Jan, [facility] [address] [id number] [address] [place] [address], [place] [address] Jan, [facility] [address] [id number] [address] [place] [address], [place] [address] Jan, [facility] [address] [id number] [address] [place] [address], [place] [address] Dec, 2014 [facility] [address] [id number] [address] [place] [address], [place] [address] Dec, 2014 [facility] [address] [id number] [address] [place] [address], [place] [address] Dec, 2014 [facility] [address] [id number] [address] [place] [address], [place] [address] Dec, 2014 [facility] [address] [id number] [address] [place] [address], [place] [address] Dec, 2014 [facility] [address] [id number] [address] [place] [address], [place] [address] Dec, 2014 [facility] [address] [id number] [address] [place] [address], [place] [address] Dec, [facility] [address] [id number] [facility] [place] [address] Dec, 2014 [facility] [address] [id number] [address] [place] [address], [place] [address] Dec, 2014 [facility] [address] [id number] [address] [place] [address], [place] [address] Dec, 2014 [facility] [address] [id number] [address] [place] [address], [place] [address] Oct, [facility] [address] [id number] [address] [place] [address], [place] [address] Oct, [facility] [address] [id number] [address] [place] [address], [place] [address] Oct, [facility] [address] [id number] [address] [place] [address], [place] [address] Oct, [facility] [address] [id number] [address] [place] [address], [place] [address] Oct, [facility] [address] [id number] [address] [place] [address], [place] [address] Oct, [facility] [address] [id number] [address] [place] [address], [place] [address] Oct, [facility] [address] [id number] [address] [place] [address], [place] [address] Oct, [facility] [address] [id number] [address] [place] [address], [place] [address] Oct, [facility] [address] [id number] [address] [place] [address], [place] [address] Oct, [facility] [address] [id number] [address] [place] [address], [place] [address] Oct, [facility] [address] [id number] [address] [place] [address], [place] [address] Oct, [facility] [address] [id number] [address] [place] [address], [place] [address] Oct, [facility] [address] [id number] [address] [place] [address], [place] [address] Oct, [facility] [address] [id number] [address] [place] [address], [place] [address] Sep, [facility] [address] [id number] [address] [place] [address], [place] [address] Sep, [facility] [address] [id number] [address] [place] [address], [place] [address] Sep, [facility] [address] [id number] [address] [place] [address], [place] [address] Sep, [facility] [address] [id number] [address] [place] [address], [place] [address] Sep, [facility] [address] [id number] [address] [place] [address], [place] [address] Sep, [facility] [address] [id number] [address] [place] [address], [place] [address] Sep, [facility] [address] [id number] [address] [place] [address], [place] [address] Sep, [facility] [address] [id number] [address] [place] [address], [place] [address] Sep, [facility] [address] [id number] [address] [place] [address], [place] [address] Aug, [facility] [address] [id number] [address] [place] [address], [place] [address] Aug, [facility] [address] [id number] [address] [place] [address], [place] [address] Aug, [facility] [address] [id number] [address] [place] [address], [place] [address] Aug, [facility] [address] [id number] [address] [place] [address], [place] [address] 16 Aug, 2014 [facility] [address] [id number] [address] [place] [address], [place] [address] Aug, [facility] [address] [id number] [address] [place] [address], [place] [address] Aug, [facility] [address] [id number] [address] [place] [address], [place] [address] Aug, [facility] [address] [id number] [address] [place] [address], [place] [address] Aug, [facility] [address] [id number] [address] [place] [address], [place] [address] 29 Jul, 2014 [facility] [address] [id number] [address] [place] [address], [place] [address] 29 Jul, 2014 [facility] [address] [id number] [address] [place] [address], [place] [address] Jul, [facility] [address] [id number] [address] [place] [address], [place] [address] Jul, 2013 [facility] [address] [id number] [address] [place] [address], [place] [address] Jul, [facility] [address] [id number] [address] [place] [address], [place] [address] Jul, [facility] [address] [id number] [address] [place] [address], [place] [address] Jul, [facility] [address] [id number] [address] [place] [address], [place] [address] Jul, 2013 [facility] [address] [id number] [address] [place] [address], [place] [address] Jul, [facility] [address] [id number] [address] [place] [address], [place] [address] Jul, [facility] [address] [id number] [address] [place] [address], [place] [address] Jun, [facility] [address] [id number] [address] [place] [address], [place] [address] Jun, [facility] [address] [id number] [facility] [place] [address] Jun, [facility] [address] [id number] [address] [place] [address], [place] [address] Jun, [facility] [address] [id number] [facility] [place] [address] Jun, [facility] [address] [id number] [address] [place] [address], [place] [address] Jun, [facility] [address] [id number] [address] [place] [address], [place] [address] Jun, [facility] [address] [id number] [address] [place] [address], [place] [address] Jun, [facility] [address] [id number] [address] [place] [address], [place] [address] Jun, [facility] [address] [id number] [address] [place] [address], [place] [address] Jun, [facility] [address] [id number] [address] [place] [address], [place] [address] Jun, [facility] [address] [id number] [address] [place] [address], [place] [address] Jun, [facility] [address] [id number] [address] [place] [address], [place] [address] May, [facility] [address] [id number] [address] [place] [address], [place] [address] May, [facility] [address] [id number] [address] [place] [address], [place] [address] May, [facility] [address] [id number] [address] [place] [address], [place] [address] May, [facility] [address] [id number] [address] [place] [address], [place] [address] May, [facility] [address] [id number] [facility] [place] [address] May, [facility] [address] [id number] [address] [place] [address], [place] [address] March, [facility] [address] [id number] [address] [place] [address], [place] [address] March, [facility] [address] [id number] [address] [place] [address], [place] [address] March, [facility] [address] [id number] [address] [place] [address], [place] [address] March, [facility] [address] [id number] [address] [place] [address], [place] [address] March, [facility] [address] [id number] [address] [place] [address], [place] [address] March, [facility] [address] [id number] [address] [place] [address], [place] [address] Feb, [facility] [address] [id number] [address] [place] [address], [place] [address] Feb, [facility] [address] [id number] [address] [place] [address], [place] [address] Feb, [facility] [address] [id number] [address] [place] [address], [place] [address] Feb, [facility] [address] [id number] [address] [place] [address], [place] [address] Jan, [facility] [address] [id number] [address] [place] [address], [place] [address] Jan, [facility] [address] [id number] [address] [place] [address], [place] [address] Jan, [facility] [address] [id number] [address] [place] [address], [place] [address] Jan, [facility] [address] [id number] [address] [place] [address], [place] [address] Jan, [facility] [address] [id number] [address] [place] [address], [place] [address] Jan, [facility] [address] [id number] [address] [place] [address], [place] [address] Jan, [facility] [address] [id number] [address] [place] [address], [place] [address] Jan, [facility] [address] [id number] [address] [place] [address], [place] [address] Jan, [facility] [address] [id number] [address] [place] [address], [place] [address] Jan, [facility] [address] [id number] [address] [place] [address], [place] [address] Jan, [facility] [address] [id number] [address] [place] [address], [place] [address] Jan, [facility] [address] [id number] [address] [place] [address], [place] [address] Dec, [facility] [address] [id number] [address] [place] [address], [place] [address] Dec, [facility] [address] [id number] [address] [place] [address], [place] [address] Dec, [facility] [address] [id number] [address] [place] [address], [place] [address] Dec, [facility] [address] [id number] [address] [place] [address], [place] [address] Dec, [facility] [address] [id number] [address] [place] [address], [place] [address] Dec, [facility] [address] [id number] [address] [place] [address], [place] [address] Nov, [facility] [address] [id number] [address] [place] [address], [place] [address] Nov, [facility] [address] [id number] [address] [place] [address], [place] [address] 13 Oct, 2013 [facility] [address] [id number] [address] [place] [address], [place] [address] Oct, [facility] [address] [id number] [address] [place] [address], [place] [address] Oct, [facility] [address] [id number] [address] [place] [address], [place] [address] Oct, [facility] [address] [id number] [address] [place] [address], [place] [address] Oct, [facility] [address] [id number] [address] [place] [address], [place] [address] Oct, [facility] [address] [id number] [address] [place] [address], [place] [address] Sep, [facility] [address] [id number] [address] [place] [address], [place] [address] Sep, [facility] [address] [id number] [address] [place] [address], [place] [address] Sep, [facility] [address] [id number] [address] [place] [address], [place] [address] Sep, [facility] [address] [id number] [address] [place] [address], [place] [address] Aug, [facility] [address] [id number] [address] [place] [address], [place] [address] Aug, [facility] [address] [id number] [address] [place] [address], [place] [address] 08 Aug, 2013 [facility] [address] [id number] [address] [place] [address], [place] [address] 17 Jul, 2013 [facility] [address] [id number] [address] [place] [address], [place] [address] 14 Jul, 2013 [facility] [address] [id number] [address] [place] [address], [place] [address] Jul, [facility] [address] [id number] [address] [place] [address], [place] [address] Jun, [facility] [address] [id number] [address] [place] [address], [place] [address] Jun, [facility] [address] [id number] [address] [place] [address], [place] [address] Jun, [facility] [address] [id number] [address] [place] [address], [place] [address] Apr, [facility] [address] [id number] [address] [place] [address], [place] [address] Apr, [facility] [address] [id number] [address] [place] [address], [place] [address] March, [facility] [address] [id number] [address] [place] [address], [place] [address] March, [facility] [address] [id number] [address] [place] [address], [place] [address] March, [facility] [address] [id number] [address] [place] [address], [place] [address] March, [facility] [address] [id number] [address] [place] [address], [place] [address] Feb, [facility] [address] [id number] [address] [place] [address], [place] [address] Jan, [facility] [address] [id number] [address] [place] [address], [place] [address] Dec, [facility] [address] [id number] [address] [place] [address], [place] [address] Dec, [facility] [address] [id number] [address] [place] [address], [place] [address] Dec, [facility] [address] [id number] [address] [place] [address], [place] [address] Nov, [facility] [address] [id number] [address] [place] [address], [place] [address] 13 Oct, 2012 [facility] [address] [id number] [address] [place] [address], [place] [address] 13 Oct, 2012 [facility] [address] [id number] [address] [place] [address], [place] [address] Sep, [facility] [address] [id number] [address] [place] [address], [place] [address] Sep, [facility] [address] [id number] [address] [place] [address], [place] [address] Sep, [facility] [address] [id number] [address] [place] [address], [place] [address] Sep, [facility] [address] [id number] [address] [place] [address], [place] [address] Sep, [facility] [address] [id number] [address] [place] [address], [place] [address] Sep, [facility] [address] [id number] [address] [place] [address], [place] [address] Sep, [facility] [address] [id number] [address] [place] [address], [place] [address] Aug, [facility] [address] [id number] [address] [place] [address], [place] [address] 16 Aug, 2012 [facility] [address] [id number] [address] [place] [address], [place] [address] Aug, [facility] [address] [id number] [address] [place] [address], [place] [address] Aug, [facility] [address] [id number] [address] [place] [address], [place] [address] Aug, [facility] [address] [id number] [address] [place] [address], [place] [address] 08 Aug, 2012 [facility] [address] [id number] [address] [place] [address], [place] [address] 07 Aug, 2012 [facility] [address] [id number] [address] [place] [address], [place] [address] Aug, [facility] [address] [id number] [address] [place] [address], [place] [address] Jul, [facility] [address] [id number] [address] [place] [address], [place] [address] Jul, [facility] [address] [id number] [address] [place] [address], [place] [address] Jun, [facility] [address] [id number] [address] [place] [address], [place] [address] May, [facility] [address] [id number] [address] [place] [address], [place] [address] Apr, [facility] [address] [id number] [address] [place] [address], [place] [address] Apr, [facility] [address] [id number] [address] [place] [address], [place] [address] Apr, [facility] [address] [id number] [address] [place] [address], [place] [address] March, [facility] [address] [id number] [address] [place] [address], [place] [address] March, [facility] [address] [id number] [address] [place] [address], [place] [address] March, [facility] [address] [id number] [address] [place] [address], [place] [address] March, [facility] [address] [id number] [address] [place] [address], [place] [address] March, [facility] [address] [id number] [address] [place] [address], [place] [address] March, [facility] [address] [id number] [address] [place] [address], [place] [address] March, [facility] [address] [id number] [address] [place] [address], [place] [address] Jan, [facility] [address] [id number] [address] [place] [address], [place] [address] Jan, [facility] [address] [id number] [address] [place] [address], [place] [address] 20 Jan, 2012 [facility] [address] [id number] [address] [place] [address], [place] [address] 13 Jan, 2012 [facility] [address] [id number] [address] [place] [address], [place] [address] Jan, [facility] [address] [id number] [address] [place] [address], [place] [address] 08 Dec, 2011 [facility] [address] [id number] [address] [place] [address], [place] [address] 06 Dec, 2011 [facility] [address] [id number] [address] [place] [address], [place] [address] Nov, [facility] [address] [id number] [address] [place] [address], [place] [address] Nov, [facility] [address] [id number] [address] [place] [address], [place] [address] Nov, [facility] [address] [id number] [address] [place] [address], [place] [address] Nov, [facility] [address] [id number] [address] [place] [address], [place] [address] Oct, [facility] [address] [id number] [address] [place] [address], [place] [address] Oct, [facility] [address] [id number] [address] [place] [address], [place] [address] 14 Sep, 2011 [facility] [address] [id number] [address] [place] [address], [place] [address] 10 Sep, 2011 [facility] [address] [id number] [address] [place] [address], [place] [address] 10 Sep, 2011 [facility] [address] [id number] [address] [place] [address], [place] [address] 11 May, 2011 [facility] [address] [id number] [address] [place] [address], [place] [address] Nov, [facility] [address] [id number] [address] [place] [address], [place] [address] 29 Oct, 2010 [facility] [address] [id number] [address] [place] [address], [place] [address] 14 Oct, 2010 [facility] [address] [id number] [address] [place] [address], [place] [address] 08 Oct, 2010 [facility] [address] [id number] [address] [place] [address], [place] [address] 15 Sep, 2010 [facility] [address] [id number] [address] [place] [address], [place] [address] Sep, [facility] [address] [id number] [address] [place] [address], [place] [address] Aug, [facility] [address] [id number] [address] [place] [address], [place] [address] March, [facility] [address] [id number] [address] [place] [address], [place] [address] Oct, [facility] [address] [id number] [address] [place] [address], [place] [address] 17 Oct, 2009 [facility] [address] [id number] [address] [place] [address], [place] [address] Oct, [facility] [address] [id number] [address] [place] [address], [place] [address] Oct, [facility] [address] [id number] [address] [place] [address], [place] [address] Sep, [facility] [address] [id number] [address] [place] [address], [place] [address] Sep, [facility] [address] [id number] [address] [place] [address], [place] [address] Sep, [facility] [address] [facility] [place] [id number] [address] [place] [phone] Aug, [facility] [address] [facility] [place] [id number] [address] [place] [phone] Aug, [facility] [address] [facility] [place] [id number] [address] [place] [phone] Aug, [facility] [address] [facility] [place] [id number] [address] [place] [id number] Jan, IMMUNIZATIONS No Known Immunizations SOCIAL HISTORY [...]
--- OUTSIDE RECORDS SUMMARY | 2020-06-13 15:58 | XMS REPORT ---
Author Author Jah Durant Doctor Organization [facility] Address Unknown Phone Unavailable Care Team Providers Care Genetic Counsellor Name Role Phone Migration, Doctor Unavailable Unavailable PROBLEMS Type Condition ICD9-CM Code [id number] Code Onset Dates Condition S tatus SNOMED Code Problem Chronic pain G89.29 Active 9530471 1 Problem Hypothyroid E03.9 Active 30809811 Problem Neuropathy G62.9 Active 889002773 Problem Mixed hyperlipidemia E78.2 Active 249818954 Problem Overactive bladder N32.81 Active 2 45280076 Problem 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 Z79.4 Active 569747389 Problem Type 2 diabetes mellitus with hyperglycemia E11.65 Active 81486514 Problem Essential (primary) hypertension I10 Active 61577162 Problem Major depressive disorder, recurrent, in full remission F33.42 Active 77529836 Problem Irritable bowel syndrome with diarrhea K58.0 Active 851912125 Problem 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 (current) use of insulin Z79.4 Active 516083203 Problem Gastroesophageal reflux disease with esophagitis K 21.0 Active 431064253 Problem Anxiety disorder, unspecified type F41.9 Active 423589264 Problem Gastroparesis K31.84 Active 408228 006 Problem 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 Active 572621008 Problem Chronic obstructive pulmonary disease, unspecified COPD ty pe J44.9 Active [id number] ALLERGIES No Information ENCOUNTERS Encounter Location Date Diagnosis [facility] [address] [facility] [id number] [address] [place] [id number] 03 Feb, 2020 Chronic pain G89.29 [facility] [address] [facility] [id number] [address] [place] [id number] 13 Jan, 2020 Type 2 diabetes mellitus wit h hyperglycemia E11.65 ; 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 (current) use of insulin Z79.4 and Hyperkalemia E87.5 [facility] [address] [facility] [id number] [address] [place] [phone] 10 Jan, 2020 Type 2 diabetes mellitus wit h diabetic autonomic (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 ; Hypothyroid E03.9 ; Dyshydrosis L30.1 and Irritable bowel syndrome with diarrhea K58.0 [facility] [address] [place] [id number] [place] [address] Jan, Chronic pain G89.29 [facility] [address] [place] [address] Dec, Chronic pain G89.29 [facility] [address] [place] [id number] [place] [phone] Dec, [facility] [address] [place] [address] Dec, [facility] [address] [place] [id number] [place] [address] Nov, Chronic pain G89.29 [place] [address] [place] [address] Oct, Chronic pain G89.29 [place] [address] [place] [address] Sep, Chronic pain G89.29 [place] [address] [place] [id number] [place] [address] Sep, Type 2 diabetes mellitus wit h diabetic autonomic (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 ; Irritable bowel syndrome with diarrhea K58.0 ; Essential (primary) hypertension I10 and Encounter for immunization Z23 [facility] [address] [place] [id number] [place] [address] Aug, Chronic pain G89.29 [place] [address] [place] [id number] [place] [address] Aug, [place] [address] [place] [id number] [place] [address] Jul, Chronic pain G89.29 [place] [address] [place] [id number] [place] [address] Jun, Other chronic pain G89.29 [facility] [address] [facility] [id number] [address] [place] [phone] Jun, [place] [address] [facility] [id number] [address] [place] [address] Jun, Chronic pain G89.29 [place] [address] [facility] [id number] [address] [place] [address] Jun, Neuropathy G62.9 [place] [address] [facility] [id number] [address] [place] [address] Jun, Encounter for Medicare [facility] wellness exam Z00.00 ; Type 2 diabetes mellitus with hyperglycemia E11.65 ; Mixed hyperlipidemia E78.2 ; Hypothyroid E03.9 ; Gastroesophageal reflux disease with esophagitis K21.0 ; Essential (primary) hypertension I10 ; Major depressive disorder, recurrent, in full remission F33.42 ; Chronic obstructive pulmonary disease, unspecified COPD type J44.9 ; Neuropathy G62.9 and Encounter for immunization Z23 [place] [address] [facility] [id number] [address] [place] [phone] Jun, Irritable bowel syndrome wit h diarrhea K58.0 [place] [address] [facility] [id number] [address] [place] [address] May, Chronic pain G89.29 [place] [address] [facility] [id number] [address] [place] [address] May, Type 2 diabetes mellitus wit h hyperglycemia E11.65 and Neuropathy G62.9 [place] [address] [facility] [id number] [address] [place] [address] May, Chronic pain G89.29 [place] [address] [facility] [id number] [address] [place] [address] Apr, Poison maryam dermatitis L23.7 [place] [address] [facility] [id number] [address] [place] [address] Apr, Chronic pain G89.29 [place] [address] [place] [id number] [place] [address] March, Type 2 diabetes mellitus wit h hyperglycemia E11.65 [facility] [address] [facility] [id number] [address] [place] [address] March, Chronic pain G89.29 [facility] [address] [facility] [id number] [address] [place] [address] March, [address] [id number] [address] Feb, [facility] [address] [facility] [id number] [address] [place] [address] Feb, Other chronic pain G89.29 an d Chronic pain G89.29 [facility] [address] [facility] [id number] [address] [place] [address] Jan, Mixed hyperlipidemia E78.2 [facility] [address] [facility] [id number] [address] [place] [address] Jan, Chronic pain G89.29 [facility] [address] [facility] [id number] [address] [place] [address] Jan, Type 2 diabetes mellitus wit h hyperglycemia E11.65 ; Mixed hyperlipidemia E78.2 ; 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 ; Acquired hypothyroidism E03.9 and Essential (primary) hypertension I10 [facility] [address] [facility] [id number] [address] [place] [address] Dec, Chronic pain G89.29 [facility] [address] [facility] [id number] [address] [place] [address] Nov, Chronic pain G89.29 [facility] [address] [facility] [id number] [address] [place] [address] Nov, [facility] [address] [facility] [id number] [address] [place] [address] Oct, Chronic pain G89.29 [facility] [address] [facility] [id number] [address] [place] [phone] Oct, [place] [address] [facility] [id number] [address] [place] [address] Sep, [place] [address] [place] [id number] [place] [address] Sep, Type 2 diabetes mellitus wit h hyperglycemia E11.65 [place] [address] [place] [id number] [place] [address] Sep, Chronic pain G89.29 [place] [address] [place] [id number] [place] [address] Sep, [place] [address] [place] [id number] [place] [address] Sep, Type 2 diabetes mellitus wit h hyperglycemia E11.65 ; Irritable bowel syndrome with diarrhea K58.0 ; Gastroparesis K31.84 ; 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 and Dermatitis L30.9 [place] [address] [place] [address] Aug, Chronic pain G89.29 [place] [address] [address] Jul, Chronic pain G89.29 [place] [address] [address] Jun, Type 2 diabetes mellitus wit h hyperglycemia E11.65 ; Neuropathy G62.9 ; Recurrent major depressive disorder, in partial remission F33.41 ; Chronic pain G89.29 and Hypertriglyceridemia E78.1 [place] [address] [place] [id number] [place] [address] Jun, Hypothyroid E03.9 [place] [address] [place] [id number] [place] [address] Jun, Major depressive disorder, r ecurrent episode, moderate F33.1 and Anxiety disorder, unspecified type F41.9 [place] [address] [place] [id number] [place] [address] Jun, [facility] [address] [facility] [id number] [address] [place] [address] Jun, Type 2 diabetes mellitus wit h hyperglycemia E11.65 ; 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 Z79.4 ; Recurrent major depressive disorder, in partial remission F33.41 ; Hypothyroid E03.9 ; Candidal dermatitis B37.2 and Weakness generalized R53.1 [place] [address] [facility] [id number] [address] [place] [phone] May, [facility] [address] [place] [id number] [place] [phone] May, [place] [address] [place] [id number] [place] [address] May, [place] [address] [place] [id number] [place] [address] May, Generalized abdominal pain R 10.84 and Candidal dermatitis B37.2 [place] [address] [place] [id number] [address] [place] [address] May, [place] [address] [place] [id number] [place] [address] May, [place] [address] [place] [id number] [place] [address] May, Nodular radiologic density R 93.8 ; Weight loss, unintentional R63.4 and Pulmonary emphysema, unspecified emphysema type J43.9 [place] [address] [place] [id number] [place] [address] May, Chronic pain G89.29 [place] [address] [place] [id number] [place] [address] May, Syncope and collapse R55 ; C hronic fatigue R53.[address] lung screening R91.8 [place] [address] [place] [id number] [place] [address] May, [facility] [address] [facility] [id number] [address] [place] [address] Apr, Chronic fatigue R53.82 ; Abn ormal chest CT R93.8 ; Elevated erythrocyte sedimentation rate R70.0 ; Hypothyroid E03.9 and Recurrent major depressive disorder, in partial remission F33.41 [facility] [address] [facility] [id number] [address] [place] [address] Apr, Hypothyroid E03.9 [facility] [address] [facility] [id number] [address] [place] [address] Apr, Depression F32.9 [facility] [address] [facility] [id number] [address] [place] [address] Apr, [facility] [address] [facility] [id number] [address] [place] [phone] March, [facility] [address] [facility] [id number] [address] [place] [address] March, Hypothyroid E03.9 [facility] [address] [facility] [id number] [address] [place] [address] March, Diabetes mellitus E11.9 and Hypothyroid E03.9 [facility] [address] [facility] [id number] [address] [place] [address] March, Diabetes mellitus E11.9 [facility] [address] [facility] [id number] [address] [place] [address] March, Hypothyroid E03.9 and Elevat ed liver enzymes R74.8 [facility] [address] [facility] [id number] [address] [place] [address] March, Type 2 diabetes mellitus wit h hyperglycemia E11.65 ; 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 Z79.4 ; Pulmonary emphysema, unspecified emphysema type J43.9 ; Hypothyroid E03.9 ; Neuropathy G62.9 ; Mixed hyperlipidemia E78.2 ; Chronic pain G89.29 ; Gastroesophageal reflux disease with esophagitis K21.0 ; Irritable bowel syndrome with diarrhea K58.0 ; Overactive bladder N32.81 and Recurrent major depressive disorder, in partial remission F33.41 [place] [address] [place] [id number] [place] [address] Feb, Chronic pain G89.29 [place] [address] [place] [id number] [place] [address] Feb, Type 2 diabetes mellitus wit h hyperglycemia E11.65 and Skin lesion of scalp L98.9 [place] [address] [place] [id number] [place] [address] Feb, [place] [address] [place] [id number] [place] [address] Jan, Type 2 diabetes mellitus wit h hyperglycemia E11.65 ; 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 Z79.4 ; Essential (primary) hypertension I10 ; Pulmonary emphysema, unspecified emphysema type J43.9 ; Chronic pain G89.29 ; Controlled substance agreement signed Z79.899 ; Hypothyroid E03.9 ; Neuropathy G62.9 ; Gastroesophageal reflux disease with esophagitis K21.0 ; Overactive bladder N32.81 ; Depression F32.9 and Irritable bowel syndrome with diarrhea K58.0 [place] [address] [place] [id number] [address] [place] [address] Jan, [place] [address] [place] [id number] [place] [address] Jan, Controlled substance agreeme nt signed Z79.899 [place] [address] [place] [id number] [place] [address] Dec, Type 2 diabetes mellitus wit h hyperglycemia E11.65 ; Controlled substance agreement signed Z79.899 ; 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 Z79.4 ; Essential (primary) hypertension I10 ; Hypothyroid E03.9 ; Neuropathy G62.9 ; Depression F32.9 ; Mixed hyperlipidemia E78.2 ; Irritable bowel syndrome with diarrhea K58.0 ; Gastroesophageal reflux disease with esophagitis K21.0 ; Thrombocytosis D47.3 ; Current non-adherence to medical treatment Z91.19 and Overweight (BMI 25.0-29.9) E66.3 [facility] [address] [facility] [id number] [address] [place] [address] Dec, Controlled substance agreeme nt signed Z79.899 [facility] [address] [facility] [id number] [address] [place] [address] Nov, Type 2 diabetes mellitus wit h hyperglycemia E11.65 and Current non- adherence to medical treatment Z91.19 [facility] [address] [facility] [id number] [address] [place] [address] Nov, [facility] [address] [place] [id number] [place] [address] Nov, Chronic pain G89.29 [place] [address] [place] [id number] [place] [address] Nov, [place] [address] [place] [id number] [address] [place] [address] Nov, Hypothyroid E03.9 [facility] [address] [facility] [id number] [address] [place] [address] Nov, Hypothyroid E03.9 [place] [address] [place] [id number] [place] [address] Nov, Pulmonary emphysema, unspeci fied emphysema type J43.9 and Irritable bowel syndrome with diarrhea K58.0 [place] [address] [place] [id number] [place] [address] Oct, [facility] [address] [place] [id number] [place] [address] Oct, [place] [id number] [place] [address] Oct, [facility] [address] [place] [id number] [place] [address] Oct, [place] [address] [place] [id number] [place] [address] Oct, Chronic pain G89.29 [place] [address] [address] Oct, Diabetes mellitus E11.9 ; De pression F32.9 ; Mixed hyperlipidemia E78.2 ; Hypotension, unspecified hypotension type I95.9 ; Pulmonary emphysema, unspecified emphysema type J43.9 and Weight loss, unintentional R63.4 [place] [address] [address] Oct, Chronic pain G89.29 [place] [address] [address] Sep, Chronic pain G89.29 [place] [address] [address] Sep, Hypothyroid E03.9 and Diabet es mellitus E11.9 [place] [address] [address] Aug, Type 2 diabetes mellitus wit h hyperglycemia E11.65 ; 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 Z79.4 ; Essential (primary) hypertension I10 ; Hypothyroid E03.9 ; Neuropathy G62.9 ; Chronic pain G89.29 ; Mixed hy perlipidemia E78.2 and Encounter for immunization Z23 [place] [address] [address] Aug, Chronic pain G89.29 [place] [address] [address] Aug, Overactive bladder N32.81 ; Diabetes mellitus E11.9 and Chronic pain G89.29 [place] [address] [address] Jul, [place] [address] [address] Jun, [place] [address] [address] Jun, [place] [address] [facility] [id number] [address] [place] [address] Jun, Hypothyroid E03.9 [facility] [address] [facility] [id number] [address] [place] [address] Jun, Diabetes mellitus E11.9 ; Hy pothyroid E03.9 ; Neuropathy G62.9 ; Chronic pain G89.29 and Neck mass R22.1 [facility] [address] [id number] [address] [place] [address] Apr, [facility] [address] [facility] [id number] [address] [place] [address] Apr, Acute cystitis without hemat uria N30.00 [facility] [address] [facility] [id number] [address] [place] [address] March, [facility] [address] [facility] [id number] [address] [place] [phone] March, [facility] [address] [facility] [id number] [address] [place] [address] March, Near syncope R55 [facility] [address] [facility] [id number] [address] [place] [address] Feb, [facility] [address] [facility] [id number] [address] [place] [address] Feb, Chronic pain G89.29 [facility] [address] [facility] [id number] [address] [place] [address] Feb, [facility] [address] [facility] [id number] [address] [place] [address] Feb, [facility] [address] [facility] [id number] [address] [place] [address] Jan, Chronic pain G89.29 [facility] [address] [facility] [id number] [address] [place] [phone] Jan, [facility] [address] [facility] [id number] [address] [place] [address] 16 Jan, 2017 [facility] [address] [place] [id number] [place] [address] 14 Jan, 2017 Diabetes mellitus E11.9 ; Hy pothyroid E03.9 ; GERD (gastroesophageal reflux disease) K21.9 ; Insomnia G47.00 ; Functional 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 ; Neuropathy G62.9 ; Depression F32.9 ; Chronic pain G89.29 ; Irritable bowel syndrome with diarrhea K58.0 ; Overactive bladder N32.81 ; Mixed hyperlipidemia E78.2 and Bronchitis J40 [facility] [address] [facility] [id number] [address] [place] [address] Dec, [facility] [address] [place] [id number] [place] [phone] 24 Dec, 2016 [facility] [address] [place] [id number] [place] [phone] Dec, [facility] [address] [place] [id number] [place] [address] Dec, [facility] [address] [facility] [id number] [address] [place] [address] Dec, Chronic pain G89.29 [facility] [address] [facility] [id number] [address] [place] [phone] 23 Dec, 2016 [facility] [address] [place] [id number] [place] [phone] 20 Dec, 2016 [facility] [address] [place] [id number] [place] [id number] 17 Dec, 2016 Type 2 diabetes mellitus wit h foot ulcer E11.621 [facility] [address] [place] [id number] [place] [phone] 17 Dec, 2016 Type 2 diabetes mellitus wit h foot ulcer E11.621 [facility] [address] [place] [id number] [place] [address] 14 Dec, 2016 HTN (hypertension) I10 ; Dep ression F32.9 ; Type 2 diabetes mellitus with foot ulcer E11.621 ; Functional 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 ; Irritable bowel syndrome with diarrhea K58.0 ; Chronic pain G89.29 ; Insomnia G47.00 ; Overactive bladder N32.81 ; Mixed hyperlipidemia E78.2 ; Gastroesophageal reflux disease with esophagitis K21.0 and Acquired hypothyroidism E03.9 [place] [address] [place] [id number] [place] [phone] Nov, [place] [address] [place] [id number] [place] [address] Oct, [place] [address] [place] [id number] [place] [phone] Oct, [place] [address] [place] [id number] [place] [address] Oct, [place] [address] [place] [id number] [place] [address] Sep, Functional 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 ; HTN (hypertension) I10 ; Diabetes mellitus E11.9 ; Depression F32.9 ; Overactive bladder N32.81 ; Mixed hyperlipidemia E78.2 ; Gastroesophageal reflux disease without esophagitis K21.9 ; Chronic pain G89.29 ; Insomnia G47.00 and Acquired hypothyroidism E03.9 [place] [address] [place] [id number] [place] [phone] Sep, [place] [address] [place] [id number] [place] [phone] Aug, Encounter for immunization Z 23 [place] [address] [place] [id number] [place] [phone] Aug, [place] [address] [place] [id number] [place] [phone] Jul, [place] [address] [place] [id number] [place] [phone] Jun, Type 2 diabetes mellitus wit hout complications E11.9 ; HTN (hypertension) I10 ; Hypothyroid E03.9 ; Neuropathy G62.9 ; Depression F32.9 ; Chronic pain G89.29 ; GERD (gastroesophageal reflux disease) K21.9 ; Insomnia G47.00 ; Overactive bladder N32.81 ; Mixed hyperlipidemia E78.2 ; Diarrhea of infectious origin A09 and Environmental allergies Z91.09 [place] [id number] [phone] Apr, [place] [address] [phone] March, Hypothyroidism, unspecified E03.9 and Mixed hyperlipidemia E78.2 [place] [address] [phone] March, Diabetes mellitus E11.9 ; HT N (hypertension) I10 ; Hypothyroid E03.9 ; Depression F32.9 ; Overactive bladder N32.81 ; Other chronic pain G89.29 ; Lumbago with sciatica, unspecified side M54.40 ; Environmental allergies Z91.09 and Gastroesophageal reflux disease, esophagitis presence not specified K21.9 [place] [address] [phone] March, [place] [address] [phone] Jan, HTN (hypertension) I10 ; Hyp othyroid E03.9 ; Neuropathy G62.9 ; Diabetes mellitus E11.9 ; Chronic pain G89.29 ; GERD (gastroesophageal reflux disease) K21.9 ; Overactive bladder N32.81 and Depression F32.9 [place] [address] [id number] 12 Dec, 2015 Ear pain, left H92.02 ; HTN (hypertension) I10 ; Hypothyroid E03.9 ; Neuropathy G62.9 ; Diabetes mellitus E11.9 ; Depression F32.9 ; GERD (gastroesophageal reflux disease) K21.9 ; Insomnia G47.00 and Overactive bladder N32.81 [place] [address] [address] Nov, Overactive bladder N32.81 an d Chronic pain G89.29 [place] [address] [address] Nov, Kidney failure N19 [place] [address] [address] Nov, [place] [address] [address] Nov, [place] [address] [address] Nov, Diabetes mellitus E11.9 ; De pression F32.9 ; Chronic pain G89.29 ; GERD (gastroesophageal reflux disease) K21.9 ; Insomnia G47.00 ; HTN (hypertension) I10 ; Hypothyroid E03.9 ; COPD (chronic obstructive pulmonary disease) J44.9 ; Bladder incontinence R32 and Incontinence R32 [place] [address] [address] Sep, Type 2 diabetes mellitus wit h foot ulcer E11.621 and Chromosomal abnormality, 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 [place] [address] [address] Sep, [place] [address] [address] Aug, [place] [address] [address] Aug, [place] [address] [address] Aug, HTN (hypertension) I10 ; Enc ounter for immunization Z23 ; Hypothyroid E03.9 ; Neuropathy G62.9 ; Diabetes mellitus E11.9 ; Depression F32.9 ; Chronic pain G89.29 ; GERD (gastroesophageal reflux disease) K21.9 ; Insomnia G47.00 and COPD (chronic obstructive pulmonary disease) J44.9 [place] [address] [place] [address] Jun, [facility] [address] [address] Jun, [facility] [address] [address] May, Essential hypertension, ivis gn 401.1 ; Unspecified hypothyroidism 244.9 ; Insomnia, unspecified 780.52 ; Shortness of breath 786.05 ; Depression 311 ; COPD (chronic obstructive pulmonary disease) 496 ; GERD (gastroesophageal reflux disease) 530.81 and Diabetes 1.5, 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 [facility] [address] [address] May, [facility] [address] [address] May, [facility] [address] [address] May, Shortness of breath 786.05 ; Essential hypertension, benign 401.1 ; Diabetes mellitus 250.00 ; Hyperlipidemia 272.4 ; Hypothyroid 244.9 ; Insomnia 780.52 and Cough 786.2 [facility] [address] [address] Apr, [facility] [address] [address] March, Shortness of breath 786.05 ; Nausea with vomiting 787.01 ; Essential hypertension, benign 401.1 ; Diabetes mellitus 250.00 ; Hyperlipidemia 272.4 and Hypothyroid 244.9 [facility] [address] [address] Feb, [facility] [address] [address] Feb, [facility] [address] [address] Jan, [facility] [address] [place] [address] 24 Jan, 2015 [facility] [address] [id number] [address] [place] [address], [place] [address] Jan, [facility] [address] [id number] [address] [place] [address], [place] [address] Jan, [facility] [address] [id number] [address] [place] [address], [place] [address] Jan, 2014 [facility] [address] [id number] [address] [place] [address], [place] [address] 05 Jan, 2015 [facility] [address] [id number] [address] [place] [address], [place] [address] Jan, [facility] [address] [id number] [address] [place] [address], [place] [address] Jan, [facility] [address] [id number] [address] [place] [address], [place] [address] Jan, [facility] [address] [id number] [address] [place] [address], [place] [address] Jan, [facility] [address] [id number] [address] [place] [address], [place] [address] Dec, 2014 [facility] [address] [id number] [address] [place] [address], [place] [address] Dec, 2014 [facility] [address] [id number] [address] [place] [address], [place] [address] Dec, 2014 [facility] [address] [id number] [address] [place] [address], [place] [address] Dec, 2014 [facility] [address] [id number] [address] [place] [address], [place] [address] Dec, 2014 [facility] [address] [id number] [address] [place] [address], [place] [address] Dec, 2014 [facility] [address] [id number] [address] [place] [address], [place] [address] Dec, [facility] [address] [id number] [facility] [place] [address] Dec, 2014 [facility] [address] [id number] [address] [place] [address], [place] [address] Dec, 2014 [facility] [address] [id number] [address] [place] [address], [place] [address] Dec, 2014 [facility] [address] [id number] [address] [place] [address], [place] [address] Oct, [facility] [address] [id number] [address] [place] [address], [place] [address] Oct, [facility] [address] [id number] [address] [place] [address], [place] [address] Oct, [facility] [address] [id number] [address] [place] [address], [place] [address] Oct, [facility] [address] [id number] [address] [place] [address], [place] [address] Oct, [facility] [address] [id number] [address] [place] [address], [place] [address] Oct, [facility] [address] [id number] [address] [place] [address], [place] [address] Oct, [facility] [address] [id number] [address] [place] [address], [place] [address] Oct, [facility] [address] [id number] [address] [place] [address], [place] [address] Oct, [facility] [address] [id number] [address] [place] [address], [place] [address] Oct, [facility] [address] [id number] [address] [place] [address], [place] [address] Oct, [facility] [address] [id number] [address] [place] [address], [place] [address] Oct, [facility] [address] [id number] [address] [place] [address], [place] [address] Oct, [facility] [address] [id number] [address] [place] [address], [place] [address] Oct, [facility] [address] [id number] [address] [place] [address], [place] [address] Sep, [facility] [address] [id number] [address] [place] [address], [place] [address] Sep, [facility] [address] [id number] [address] [place] [address], [place] [address] Sep, [facility] [address] [id number] [address] [place] [address], [place] [address] Sep, [facility] [address] [id number] [address] [place] [address], [place] [address] Sep, [facility] [address] [id number] [address] [place] [address], [place] [address] Sep, [facility] [address] [id number] [address] [place] [address], [place] [address] Sep, [facility] [address] [id number] [address] [place] [address], [place] [address] Sep, [facility] [address] [id number] [address] [place] [address], [place] [address] Sep, [facility] [address] [id number] [address] [place] [address], [place] [address] Aug, [facility] [address] [id number] [address] [place] [address], [place] [address] Aug, [facility] [address] [id number] [address] [place] [address], [place] [address] Aug, [facility] [address] [id number] [address] [place] [address], [place] [address] Aug, [facility] [address] [id number] [address] [place] [address], [place] [address] 16 Aug, 2014 [facility] [address] [id number] [address] [place] [address], [place] [address] Aug, [facility] [address] [id number] [address] [place] [address], [place] [address] Aug, [facility] [address] [id number] [address] [place] [address], [place] [address] Aug, [facility] [address] [id number] [address] [place] [address], [place] [address] Aug, [facility] [address] [id number] [address] [place] [address], [place] [address] 29 Jul, 2014 [facility] [address] [id number] [address] [place] [address], [place] [address] 29 Jul, 2014 [facility] [address] [id number] [address] [place] [address], [place] [address] Jul, [facility] [address] [id number] [address] [place] [address], [place] [address] Jul, 2013 [facility] [address] [id number] [address] [place] [address], [place] [address] Jul, [facility] [address] [id number] [address] [place] [address], [place] [address] Jul, [facility] [address] [id number] [address] [place] [address], [place] [address] Jul, [facility] [address] [id number] [address] [place] [address], [place] [address] Jul, 2013 [facility] [address] [id number] [address] [place] [address], [place] [address] Jul, [facility] [address] [id number] [address] [place] [address], [place] [address] Jul, [facility] [address] [id number] [address] [place] [address], [place] [address] Jun, [facility] [address] [id number] [address] [place] [address], [place] [address] Jun, [facility] [address] [id number] [facility] [place] [address] Jun, [facility] [address] [id number] [address] [place] [address], [place] [address] Jun, [facility] [address] [id number] [facility] [place] [address] Jun, [facility] [address] [id number] [address] [place] [address], [place] [address] Jun, [facility] [address] [id number] [address] [place] [address], [place] [address] Jun, [facility] [address] [id number] [address] [place] [address], [place] [address] Jun, [facility] [address] [id number] [address] [place] [address], [place] [address] Jun, [facility] [address] [id number] [address] [place] [address], [place] [address] Jun, [facility] [address] [id number] [address] [place] [address], [place] [address] Jun, [facility] [address] [id number] [address] [place] [address], [place] [address] Jun, [facility] [address] [id number] [address] [place] [address], [place] [address] May, [facility] [address] [id number] [address] [place] [address], [place] [address] May, [facility] [address] [id number] [address] [place] [address], [place] [address] May, [facility] [address] [id number] [address] [place] [address], [place] [address] May, [facility] [address] [id number] [address] [place] [address], [place] [address] May, [facility] [address] [id number] [facility] [place] [address] May, [facility] [address] [id number] [address] [place] [address], [place] [address] March, [facility] [address] [id number] [address] [place] [address], [place] [address] March, [facility] [address] [id number] [address] [place] [address], [place] [address] March, [facility] [address] [id number] [address] [place] [address], [place] [address] March, [facility] [address] [id number] [address] [place] [address], [place] [address] March, [facility] [address] [id number] [address] [place] [address], [place] [address] March, [facility] [address] [id number] [address] [place] [address], [place] [address] Feb, [facility] [address] [id number] [address] [place] [address], [place] [address] Feb, [facility] [address] [id number] [address] [place] [address], [place] [address] Feb, [facility] [address] [id number] [address] [place] [address], [place] [address] Feb, [facility] [address] [id number] [address] [place] [address], [place] [address] Jan, [facility] [address] [id number] [address] [place] [address], [place] [address] Jan, [facility] [address] [id number] [address] [place] [address], [place] [address] Jan, [facility] [address] [id number] [address] [place] [address], [place] [address] Jan, [facility] [address] [id number] [address] [place] [address], [place] [address] Jan, [facility] [address] [id number] [address] [place] [address], [place] [address] Jan, [facility] [address] [id number] [address] [place] [address], [place] [address] Jan, [facility] [address] [id number] [address] [place] [address], [place] [address] Jan, [facility] [address] [id number] [address] [place] [address], [place] [address] Jan, [facility] [address] [id number] [address] [place] [address], [place] [address] Jan, [facility] [address] [id number] [address] [place] [address], [place] [address] Jan, [facility] [address] [id number] [address] [place] [address], [place] [address] Jan, [facility] [address] [id number] [address] [place] [address], [place] [address] Dec, [facility] [address] [id number] [address] [place] [address], [place] [address] Dec, [facility] [address] [id number] [address] [place] [address], [place] [address] Dec, [facility] [address] [id number] [address] [place] [address], [place] [address] Dec, [facility] [address] [id number] [address] [place] [address], [place] [address] Dec, [facility] [address] [id number] [address] [place] [address], [place] [address] Dec, [facility] [address] [id number] [address] [place] [address], [place] [address] Nov, [facility] [address] [id number] [address] [place] [address], [place] [address] Nov, [facility] [address] [id number] [address] [place] [address], [place] [address] 13 Oct, 2013 [facility] [address] [id number] [address] [place] [address], [place] [address] Oct, [facility] [address] [id number] [address] [place] [address], [place] [address] Oct, [facility] [address] [id number] [address] [place] [address], [place] [address] Oct, [facility] [address] [id number] [address] [place] [address], [place] [address] Oct, [facility] [address] [id number] [address] [place] [address], [place] [address] Oct, [facility] [address] [id number] [address] [place] [address], [place] [address] Sep, [facility] [address] [id number] [address] [place] [address], [place] [address] Sep, [facility] [address] [id number] [address] [place] [address], [place] [address] Sep, [facility] [address] [id number] [address] [place] [address], [place] [address] Sep, [facility] [address] [id number] [address] [place] [address], [place] [address] Aug, [facility] [address] [id number] [address] [place] [address], [place] [address] Aug, [facility] [address] [id number] [address] [place] [address], [place] [address] 08 Aug, 2013 [facility] [address] [id number] [address] [place] [address], [place] [address] 17 Jul, 2013 [facility] [address] [id number] [address] [place] [address], [place] [address] 14 Jul, 2013 [facility] [address] [id number] [address] [place] [address], [place] [address] Jul, [facility] [address] [id number] [address] [place] [address], [place] [address] Jun, [facility] [address] [id number] [address] [place] [address], [place] [address] Jun, [facility] [address] [id number] [address] [place] [address], [place] [address] Jun, [facility] [address] [id number] [address] [place] [address], [place] [address] Apr, [facility] [address] [id number] [address] [place] [address], [place] [address] Apr, [facility] [address] [id number] [address] [place] [address], [place] [address] March, [facility] [address] [id number] [address] [place] [address], [place] [address] March, [facility] [address] [id number] [address] [place] [address], [place] [address] March, [facility] [address] [id number] [address] [place] [address], [place] [address] March, [facility] [address] [id number] [address] [place] [address], [place] [address] Feb, [facility] [address] [id number] [address] [place] [address], [place] [address] Jan, [facility] [address] [id number] [address] [place] [address], [place] [address] Dec, [facility] [address] [id number] [address] [place] [address], [place] [address] Dec, [facility] [address] [id number] [address] [place] [address], [place] [address] Dec, [facility] [address] [id number] [address] [place] [address], [place] [address] Nov, [facility] [address] [id number] [address] [place] [address], [place] [address] 13 Oct, 2012 [facility] [address] [id number] [address] [place] [address], [place] [address] 13 Oct, 2012 [facility] [address] [id number] [address] [place] [address], [place] [address] Sep, [facility] [address] [id number] [address] [place] [address], [place] [address] Sep, [facility] [address] [id number] [address] [place] [address], [place] [address] Sep, [facility] [address] [id number] [address] [place] [address], [place] [address] Sep, [facility] [address] [id number] [address] [place] [address], [place] [address] Sep, [facility] [address] [id number] [address] [place] [address], [place] [address] Sep, [facility] [address] [id number] [address] [place] [address], [place] [address] Sep, [facility] [address] [id number] [address] [place] [address], [place] [address] Aug, [facility] [address] [id number] [address] [place] [address], [place] [address] 16 Aug, 2012 [facility] [address] [id number] [address] [place] [address], [place] [address] Aug, [facility] [address] [id number] [address] [place] [address], [place] [address] Aug, [facility] [address] [id number] [address] [place] [address], [place] [address] Aug, [facility] [address] [id number] [address] [place] [address], [place] [address] 08 Aug, 2012 [facility] [address] [id number] [address] [place] [address], [place] [address] 07 Aug, 2012 [facility] [address] [id number] [address] [place] [address], [place] [address] Aug, [facility] [address] [id number] [address] [place] [address], [place] [address] Jul, [facility] [address] [id number] [address] [place] [address], [place] [address] Jul, [facility] [address] [id number] [address] [place] [address], [place] [address] Jun, [facility] [address] [id number] [address] [place] [address], [place] [address] May, [facility] [address] [id number] [address] [place] [address], [place] [address] Apr, [facility] [address] [id number] [address] [place] [address], [place] [address] Apr, [facility] [address] [id number] [address] [place] [address], [place] [address] Apr, [facility] [address] [id number] [address] [place] [address], [place] [address] March, [facility] [address] [id number] [address] [place] [address], [place] [address] March, [facility] [address] [id number] [address] [place] [address], [place] [address] March, [facility] [address] [id number] [address] [place] [address], [place] [address] March, [facility] [address] [id number] [address] [place] [address], [place] [address] March, [facility] [address] [id number] [address] [place] [address], [place] [address] March, [facility] [address] [id number] [address] [place] [address], [place] [address] March, [facility] [address] [id number] [address] [place] [address], [place] [address] Jan, [facility] [address] [id number] [address] [place] [address], [place] [address] Jan, [facility] [address] [id number] [address] [place] [address], [place] [address] 20 Jan, 2012 [facility] [address] [id number] [address] [place] [address], [place] [address] 13 Jan, 2012 [facility] [address] [id number] [address] [place] [address], [place] [address] Jan, [facility] [address] [id number] [address] [place] [address], [place] [address] 08 Dec, 2011 [facility] [address] [id number] [address] [place] [address], [place] [address] 06 Dec, 2011 [facility] [address] [id number] [address] [place] [address], [place] [address] Nov, [facility] [address] [id number] [address] [place] [address], [place] [address] Nov, [facility] [address] [id number] [address] [place] [address], [place] [address] Nov, [facility] [address] [id number] [address] [place] [place] [address], [place] [address] Nov, [facility] [address] [id number] [address] [place] [address], [place] [address] Oct, [facility] [address] [id number] [address] [place] [address], [place] [address] Oct, [facility] [address] [id number] [address] [place] [address], [place] [address] 14 Sep, 2011 [facility] [address] [id number] [address] [place] [address], [place] [address] 10 Sep, 2011 [facility] [address] [id number] [address] [place] [address], [place] [address] 10 Sep, 2011 [facility] [address] [id number] [address] [place] [address], [place] [address] 11 May, 2011 [facility] [address] [id number] [address] [place] [address], [place] [address] Nov, [facility] [address] [id number] [address] [place] [address], [place] [address] 29 Oct, 2010 [facility] [address] [id number] [address] [place] [address], [place] [address] 14 Oct, 2010 [facility] [address] [id number] [address] [place] [address], [place] [address] 08 Oct, 2010 [facility] [address] [id number] [address] [place] [address], [place] [address] 15 Sep, 2010 [facility] [address] [id number] [address] [place] [address], [place] [address] Sep, [facility] [address] [id number] [address] [place] [address], [place] [address] Aug, [facility] [address] [id number] [address] [place] [address], [place] [address] March, [facility] [address] [id number] [address] [place] [address], [place] [address] Oct, [facility] [address] [id number] [address] [place] [address], [place] [address] 17 Oct, 2009 [facility] [address] [id number] [address] [place] [address], [place] [address] Oct, [facility] [address] [id number] [address] [place] [address], [place] [address] Oct, [facility] [address] [id number] [address] [place] [address], [place] [address] Sep, [facility] [address] [id number] [address] [place] [address], [place] [address] Sep, [facility] [address] [id number] [address] [place] [address], [place] [address] Sep, [facility] [address] [facility] [id number] [address] [place] [id number] Aug, [facility] [address] [facility] [id number] [address] [place] [phone] Aug, [facility] [address] [facility] [id number] [address] [place] [address] Aug, [facility] [address] [facility] [id number] [address] [place] [phone] Jan, IMMUNIZATIONS No Known Immunizations SOCIAL HISTORY [...]
--- OUTSIDE RECORDS SUMMARY | 2020-06-13 15:58 | XMS REPORT ---
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 Care Crime Prevention Worker Name Role Phone Migration, Doctor Unavailable Unavailable PROBLEMS Type Condition ICD9-CM Code AKC26-FN Code Onset Dates Condition S tatus SNOMED Code Problem Chronic pain G89.29 Active 1326074 1 Problem Hypothyroid E03.9 Active 20254238 Problem Neuropathy G62.9 Active 493816295 Problem Mixed hyperlipidemia E78.2 Active 683133572 Problem Overactive bladder N32.81 Active 2 82695324 Problem longterm 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 Z79.4 Active 244730624 Problem Type 2 diabetes mellitus with hyperglycemia E11.65 Active 28445511 Problem Essential (primary) hypertension I10 Active 44611933 Problem Major depressive disorder, recurrent, in full remission F33.42 Active 59294896 Problem Irritable bowel syndrome with diarrhea K58.0 Active 346972755 Problem longterm (current) use of insulin Z79.4 Active 348038323 Problem Gastroesophageal reflux disease with esophagitis K 21.0 Active 819484385 Problem Anxiety disorder, unspecified type F41.9 Active 148530726 Problem Gastroparesis K31.84 Active 365356 006 Problem 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 Active 085875098 Problem Chronic obstructive pulmonary disease, unspecified COPD ty pe J44.9 Active 74326414 ALLERGIES No Information ENCOUNTERS Encounter Location Date Diagnosis [facility] [address] [facility] [id number] [place] [address] 03 Feb, [address] [facility] [address] [facility] [id number] [place] [address] 13 Jan, 2020 Type 2 diabetes mellitus wit h hyperglycemia E11.65 ; longterm (current) use of insulin Z79.[address] [facility] [address] [facility] [id number] [place] [address] 10 Jan, 2020 Type 2 diabetes mellitus wit h diabetic autonomic (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 ; Hypothyroid E03.9 ; Dyshydrosis L30.1 and Irritable bowel syndrome with diarrhea K58.0 [facility] [address] [place] [id number] [place] [address] Jan, Chronic pain G89.29 [facility] [address] [place] [address] Dec, Chronic pain G89.29 [facility] [address] [place] [id number] [place] [address] Dec, [facility] [address] [place] [address] Dec, [facility] [address] [place] [id number] [place] [address] Nov, Chronic pain G89.29 [place] [address] [place] [address] Oct, Chronic pain G89.29 [place] [address] [place] [address] Sep, Chronic pain G89.29 [place] [address] [place] [id number] [place] [address] Sep, Type 2 diabetes mellitus wit h diabetic autonomic (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 ; Irritable bowel syndrome with diarrhea K58.0 ; Essential (primary) hypertension I10 and Encounter for immunization Z23 [facility] [address] [place] [id number] [place] [address] Aug, Chronic pain G89.29 [place] [address] [place] [id number] [place] [address] Aug, [place] [address] [place] [id number] [place] [address] Jul, Chronic pain G89.29 [place] [address] [place] [id number] [place] [address] Jun, Other chronic pain G89.29 [facility] [address] [facility] [id number] [place] [address] Jun, [place] [address] [facility] [id number] [place] [address] Jun, Chronic pain G89.29 [place] [address] [facility] [id number] [place] [address] Jun, Neuropathy G62.9 [place] [address] [facility] [id number] [place] [address] Jun, [facility] [place] [facility] ; Type 2 diabetes mellitus with hyperglycemia E11.65 ; Mixed hyperlipidemia E78.2 ; Hypothyroid E03.9 ; Gastroesophageal reflux disease with esophagitis K21.0 ; Essential (primary) hypertension I10 ; Major depressive disorder, recurrent, in full remission F33.42 ; Chronic obstructive pulmonary disease, unspecified COPD type J44.9 ; Neuropathy G62.9 and Encounter for immunization Z23 [place] [address] [facility] [id number] [place] [address] Jun, Irritable bowel syndrome wit h diarrhea K58.0 [place] [address] [facility] [id number] [place] [address] May, Chronic pain G89.29 [place] [address] [facility] [id number] [place] [address] May, Type 2 diabetes mellitus wit h hyperglycemia E11.65 and Neuropathy G62.9 [place] [address] [facility] [id number] [place] [address] May, Chronic pain G89.29 [place] [address] [facility] [id number] [place] [address] Apr, Poison maryam dermatitis L23.7 [place] [address] [facility] [id number] [place] [address] Apr, Chronic pain G89.29 [place] [address] [place] [id number] [place] [address] March, Type 2 diabetes mellitus wit h hyperglycemia E11.65 [facility] [address] [facility] [id number] [place] [address] March, Chronic pain G89.29 [facility] [address] [facility] [id number] [place] [address] March, [address] [address] Feb, [facility] [address] [facility] [id number] [place] [address] Feb, Other chronic pain G89.29 an d Chronic pain G89.29 [facility] [address] [facility] [id number] [place] [address] Jan, Mixed hyperlipidemia E78.2 [facility] [address] [facility] [id number] [place] [address] Jan, Chronic pain G89.29 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 [address] [facility] [id number] [place] [address] Dec, Chronic pain G89.29 [facility] [address] [facility] [id number] [place] [address] Nov, Chronic pain G89.29 [facility] [address] [facility] [id number] [place] [address] Nov, [facility] [address] [facility] [id number] [place] [address] Oct, Chronic pain G89.29 [facility] [address] [facility] [id number] [place] [address] Oct, [place] [address] [facility] [id number] [place] [address] Sep, [place] [address] [place] [id number] [place] [address] Sep, Type 2 diabetes mellitus wit h hyperglycemia E11.65 [place] [address] [place] [id number] [place] [address] Sep, Chronic pain G89.29 [place] [address] [place] [id number] [place] [address] Sep, [place] [address] [place] [id number] [place] [address] Sep, Type 2 diabetes mellitus wit h hyperglycemia E11.65 ; Irritable bowel syndrome with diarrhea K58.0 ; Gastroparesis K31.84 ; 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 and Dermatitis L30.9 [place] [address] [place] [address] Aug, Chronic pain G89.29 [place] [address] [address] Jul, Chronic pain G89.29 [place] [address] [address] Jun, Type 2 diabetes mellitus wit h hyperglycemia E11.65 ; Neuropathy G62.9 ; Recurrent major depressive disorder, in partial remission F33.41 ; Chronic pain G89.29 and Hypertriglyceridemia E78.1 [place] [address] [place] [id number] [place] [address] Jun, Hypothyroid E03.9 [place] [address] [place] [id number] [place] [address] Jun, Major depressive disorder, r ecurrent episode, moderate F33.1 and Anxiety disorder, unspecified type F41.9 [place] [address] [place] [id number] [place] [address] Jun, [facility] [address] [facility] [id number] [place] [address] Jun, Type 2 diabetes mellitus wit h hyperglycemia E11.65 ; longterm 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 Z79.4 ; Recurrent major depressive disorder, in partial remission F33.41 ; Hypothyroid E03.9 ; Candidal dermatitis B37.2 and Weakness generalized R53.1 [place] [address] [facility] [id number] [place] [address] May, [facility] [address] [place] [id number] [place] [address] May, [place] [address] [place] [id number] [place] [address] May, [place] [address] [place] [id number] [place] [address] May, Generalized abdominal pain R 10.84 and Candidal dermatitis B37.2 [place] [address] [place] [id number] [place] [address] May, [place] [address] [place] [id number] [place] [address] May, [place] [address] [place] [id number] [place] [address] May, Nodular radiologic density R 93.8 ; Weight loss, unintentional R63.4 and Pulmonary emphysema, unspecified emphysema type J43.9 [place] [address] [place] [id number] [place] [address] May, Chronic pain G89.29 [place] [address] [place] [id number] [place] [address] May, Syncope and collapse R55 ; C hronic fatigue R53.[address] lung screening R91.8 [place] [address] [place] [id number] [place] [address] May, [facility] [address] [facility] [id number] [place] [address] Apr, Chronic fatigue R53.82 ; Abn ormal chest CT R93.8 ; Elevated erythrocyte sedimentation rate R70.0 ; Hypothyroid E03.9 and Recurrent major depressive disorder, in partial remission F33.41 [facility] [address] [facility] [id number] [place] [address] Apr, Hypothyroid E03.9 [facility] [address] [facility] [id number] [place] [address] Apr, Depression F32.9 [facility] [address] [facility] [id number] [place] [address] Apr, [facility] [address] [facility] [id number] [place] [address] March, [facility] [address] [facility] [id number] [place] [address] March, Hypothyroid E03.9 [facility] [address] [facility] [id number] [place] [address] March, Diabetes mellitus E11.[address] [facility] [address] [facility] [id number] [place] [address] March, Diabetes mellitus E11.9 [facility] [address] [facility] [id number] [place] [address] March, Hypothyroid E03.9 and Elevat ed liver enzymes R74.8 [facility] [address] [facility] [id number] [place] [address] March, Type 2 diabetes mellitus wit h [...] major depressive disorder, in partial remission F33.41 [place] [address] [place] [id number] [place] [address] Feb, Chronic pain G89.29 [place] [address] [place] [id number] [place] [address] Feb, Type 2 diabetes mellitus wit h hyperglycemia E11.65 and Skin lesion of scalp L98.9 [place] [address] [place] [id number] [place] [address] Feb, [place] [address] [place] [id number] [place] [address] Jan, Type 2 diabetes mellitus wit h [...] and Irritable bowel syndrome with diarrhea K58.0 [place] [address] [place] [id number] [place] [address] Jan, [place] [address] [place] [id number] [place] [address] Jan, Controlled substance agreeme nt signed Z79.899 [place] [address] [place] [id number] [place] [address] Dec, Type 2 diabetes mellitus wit h [...] treatment Z91.19 and Overweight (BMI 25.0-29.9) E66.3 [facility] [address] [facility] [id number] [place] [address] Dec, Controlled substance agreeme nt signed Z79.899 [facility] [address] [facility] [id number] [place] [address] Nov, Type 2 diabetes mellitus wit h hyperglycemia E11.65 and Current non- adherence to medical treatment Z91.19 [facility] [address] [facility] [id number] [place] [address] Nov, [facility] [address] [place] [id number] [place] [address] Nov, Chronic pain G89.29 [place] [address] [place] [id number] [place] [address] Nov, [place] [address] [place] [id number] [place] [address] Nov, Hypothyroid E03.9 [facility] [address] [facility] [id number] [place] [address] Nov, Hypothyroid E03.9 [place] [address] [place] [id number] [place] [address] Nov, Pulmonary emphysema, unspeci fied emphysema type J43.9 and Irritable bowel syndrome with diarrhea K58.0 [place] [address] [place] [id number] [place] [address] Oct, [facility] [address] [place] [id number] [place] [address] Oct, [place] [address] [place] [address] Oct, [facility] [address] [place] [id number] [place] [address] Oct, [place] [address] [place] [id number] [place] [address] Oct, Chronic pain G89.29 [place] [address] [address] Oct, Diabetes mellitus E11.9 ; De pression F32.9 ; Mixed hyperlipidemia E78.2 ; Hypotension, unspecified hypotension type I95.9 ; Pulmonary emphysema, unspecified emphysema type J43.9 and Weight loss, unintentional R63.4 [place] [address] [address] Oct, Chronic pain G89.29 [place] [address] [address] Sep, Chronic pain G89.29 [place] [address] [address] Sep, Hypothyroid E03.9 and Diabet es mellitus E11.9 [place] [address] [address] Aug, Type 2 diabetes mellitus wit h hyperglycemia E11.65 ; longterm 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 Z79.4 ; Essential (primary) hypertension I10 ; Hypothyroid E03.9 ; Neuropathy G62.9 ; Chronic pain G89.29 ; Mixed hy perlipidemia E78.2 and Encounter for immunization Z23 [place] [address] [address] Aug, Chronic pain G89.29 [place] [address] [address] Aug, Overactive bladder N32.81 ; Diabetes mellitus E11.9 and Chronic pain G89.29 [place] [address] [address] Jul, [place] [address] [address] Jun, [place] [address] [address] Jun, [place] [address] [facility] [id number] [place] [address] Jun, Hypothyroid E03.9 [facility] [address] [facility] [id number] [place] [address] Jun, Diabetes mellitus E11.9 ; Hy pothyroid E03.9 ; Neuropathy G62.9 ; Chronic pain G89.29 and Neck mass R22.1 [facility] [address] [id number] [place] [address] Apr, [facility] [address] [facility] [id number] [place] [address] Apr, Acute cystitis without hemat uria N30.00 [facility] [address] [facility] [id number] [place] [address] March, [facility] [address] [facility] [id number] [place] [address] March, [facility] [address] [facility] [id number] [place] [address] March, Near syncope R55 [facility] [address] [facility] [id number] [place] [address] Feb, [facility] [address] [facility] [id number] [place] [address] Feb, Chronic pain G89.29 [facility] [address] [facility] [id number] [place] [address] Feb, [facility] [address] [facility] [id number] [place] [address] Feb, [facility] [address] [facility] [id number] [place] [address] Jan, Chronic pain G89.29 [facility] [address] [facility] [id number] [place] [address] Jan, [facility] [address] [facility] [id number] [place] [address] 16 Jan, 2017 [facility] [address] [place] [id number] [place] [address] 14 Jan, 2017 Diabetes mellitus E11.9 ; Hy pothyroid E03.9 ; GERD (gastroesophageal reflux disease) K21.9 ; Insomnia G47.00 ; Functional 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 ; Neuropathy G62.9 ; Depression F32.9 ; Chronic pain G89.29 ; Irritable bowel syndrome with diarrhea K58.0 ; Overactive bladder N32.81 ; Mixed hyperlipidemia E78.[address] [facility] [address] [facility] [id number] [place] [address] Dec, [facility] [address] [place] [id number] [place] [address] [address], 2016 [facility] [address] [place] [id number] [place] [address] Dec, [facility] [address] [place] [id number] [place] [address] Dec, [facility] [address] [facility] [id number] [place] [address] Dec, Chronic pain G89.29 [facility] [address] [facility] [id number] [place] [address] 23 Dec, 2016 [facility] [address] [place] [id number] [place] [address] 20 Dec, 2016 [facility] [address] [place] [id number] [place] [address] 17 Dec, 2016 Type 2 diabetes mellitus wit h foot ulcer E11.621 [facility] [address] [place] [id number] [place] [address] 17 Dec, 2016 Type 2 diabetes mellitus wit h foot ulcer E11.621 [facility] [address] [place] [id number] [place] [address] 14 Dec, 2016 HTN (hypertension) I10 ; Dep ression F32.9 ; Type 2 diabetes mellitus with foot ulcer E11.621 ; Functional 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 ; Irritable bowel syndrome with diarrhea K58.0 ; Chronic pain G89.29 ; Insomnia G47.00 ; Overactive bladder N32.81 ; Mixed hyperlipidemia E78.2 ; Gastroesophageal reflux disease with esophagitis K21.0 and Acquired hypothyroidism E03.9 [place] [address] [place] [id number] [place] [id number] Nov, [place] [address] [place] [id number] [place] [phone] Oct, [place] [address] [place] [id number] [place] [phone] Oct, [place] [address] [place] [id number] [place] [id number] Oct, [place] [address] [place] [id number] [place] [id number] Sep, Functional 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 ; HTN (hypertension) I10 ; Diabetes mellitus E11.9 ; Depression F32.9 ; Overactive bladder N32.81 ; Mixed hyperlipidemia E78.2 ; Gastroesophageal reflux disease without esophagitis K21.9 ; Chronic pain G89.29 ; Insomnia G47.00 and Acquired hypothyroidism E03.9 [place] [address] [place] [id number] [place] [phone] Sep, [place] [address] [place] [id number] [place] [phone] Aug, Encounter for immunization Z 23 [place] [address] [place] [id number] [place] [phone] Aug, [place] [address] [place] [id number] [place] [phone] Jul, [place] [address] [place] [id number] [place] [phone] Jun, Type 2 diabetes mellitus wit hout complications E11.9 ; HTN (hypertension) I10 ; Hypothyroid E03.9 ; Neuropathy G62.9 ; Depression F32.9 ; Chronic pain G89.29 ; GERD (gastroesophageal reflux disease) K21.9 ; Insomnia G47.00 ; Overactive bladder N32.81 ; Mixed hyperlipidemia E78.2 ; Diarrhea of infectious origin A09 and Environmental allergies Z91.09 [place] [id number] [id number] Apr, [place] [address] [id number] March, Hypothyroidism, unspecified E03.9 and Mixed hyperlipidemia E78.2 [place] [address] [phone] March, Diabetes mellitus E11.9 ; HT N (hypertension) I10 ; Hypothyroid E03.9 ; Depression F32.9 ; Overactive bladder N32.81 ; Other chronic pain G89.29 ; Lumbago with sciatica, unspecified side M54.40 ; Environmental allergies Z91.09 and Gastroesophageal reflux disease, esophagitis presence not specified K21.9 [place] [address] [address] March, [place] [address] [address] Jan, HTN (hypertension) I10 ; Hyp othyroid E03.9 ; Neuropathy G62.9 ; Diabetes mellitus E11.9 ; Chronic pain G89.29 ; GERD (gastroesophageal reflux disease) K21.9 ; Overactive bladder N32.81 and Depression F32.9 [place] [address] [address] 12 Dec, 2015 Ear pain, left H92.02 ; HTN (hypertension) I10 ; Hypothyroid E03.9 ; Neuropathy G62.9 ; Diabetes mellitus E11.9 ; Depression F32.9 ; GERD (gastroesophageal reflux disease) K21.9 ; Insomnia G47.00 and Overactive bladder N32.81 [place] [address] [address] Nov, Overactive bladder N32.81 an d Chronic pain G89.29 [place] [address] [address] Nov, Kidney failure N19 [place] [address] [address] Nov, [place] [address] [address] Nov, [place] [address] [address] Nov, Diabetes mellitus E11.9 ; De pression F32.9 ; Chronic pain G89.29 ; GERD (gastroesophageal reflux disease) K21.9 ; Insomnia G47.00 ; HTN (hypertension) I10 ; Hypothyroid E03.9 ; COPD (chronic obstructive pulmonary disease) J44.9 ; Bladder incontinence R32 and Incontinence R32 [place] [address] [address] Sep, Type 2 diabetes mellitus wit h foot ulcer E11.621 and Chromosomal abnormality, 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 [address] [address] Jun, [facility] [address] [address] May, Essential hypertension, ivis gn 401.1 ; Unspecified hypothyroidism 244.9 ; Insomnia, unspecified 780.52 ; Shortness of breath 786.05 ; Depression 311 ; COPD (chronic obstructive pulmonary disease) 496 ; GERD (gastroesophageal reflux disease) 530.81 and Diabetes 1.5, 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 [facility] [address] [address] May, [facility] [address] [address] May, [facility] [address] [address] May, Shortness of breath 786.05 ; Essential hypertension, benign 401.1 ; Diabetes mellitus 250.00 ; Hyperlipidemia 272.4 ; Hypothyroid 244.9 ; Insomnia 780.[address] [facility] [address] [address] Apr, [facility] [address] [address] March, Shortness of breath 786.05 ; Nausea with vomiting 787.01 ; Essential hypertension, benign 401.1 ; Diabetes mellitus 250.00 ; Hyperlipidemia 272.[address] [facility] [address] [address] Feb, [facility] [address] [address] Feb, [facility] [address] [address] Jan, [facility] [address] [place] [address] 24 Jan, 2015 [facility] [address] [id number] [address] [place] [address], [place] [address] Jan, [facility] [address] [id number] [address] [place] [address], [place] [address] Jan, [facility] [address] [id number] [address] [place] [address], [place] [address] Jan, 2014 [facility] [address] [id number] [address] [place] [address], [place] [address] 05 Jan, 2015 [facility] [address] [id number] [address] [place] [address], [place] [address] Jan, [facility] [address] [id number] [address] [place] [address], [place] [address] Jan, [facility] [address] [id number] [address] [place] [address], [place] [address] Jan, [facility] [address] [id number] [address] [place] [address], [place] [address] Jan, [facility] [address] [id number] [address] [place] [address], [place] [address] Dec, 2014 [facility] [address] [id number] [address] [place] [address], [place] [address] Dec, 2014 [facility] [address] [id number] [address] [place] [address], [place] [address] Dec, 2014 [facility] [address] [id number] [address] [place] [address], [place] [address] Dec, 2014 [facility] [address] [id number] [address] [place] [address], [place] [address] Dec, 2014 [facility] [address] [id number] [address] [place] [address], [place] [address] Dec, 2014 [facility] [address] [id number] [address] [place] [address], [place] [address] Dec, [facility] [address] [id number] [facility] [place] [address] Dec, 2014 [facility] [address] [id number] [address] [place] [address], [place] [address] Dec, 2014 [facility] [address] [id number] [address] [place] [address], [place] [address] Dec, 2014 [facility] [address] [id number] [address] [place] [address], [place] [address] Oct, [facility] [address] [id number] [address] [place] [address], [place] [address] Oct, [facility] [address] [id number] [address] [place] [address], [place] [address] Oct, [facility] [address] [id number] [address] [place] [address], [place] [address] Oct, [facility] [address] [id number] [address] [place] [address], [place] [address] Oct, [facility] [address] [id number] [address] [place] [address], [place] [address] Oct, [facility] [address] [id number] [address] [place] [address], [place] [address] Oct, [facility] [address] [id number] [address] [place] [address], [place] [address] Oct, [facility] [address] [id number] [address] [place] [address], [place] [address] Oct, [facility] [address] [id number] [address] [place] [address], [place] [address] Oct, [facility] [address] [id number] [address] [place] [address], [place] [address] Oct, [facility] [address] [id number] [address] [place] [address], [place] [address] Oct, [facility] [address] [id number] [address] [place] [address], [place] [address] Oct, [facility] [address] [id number] [address] [place] [address], [place] [address] Oct, [facility] [address] [id number] [address] [place] [address], [place] [address] Sep, [facility] [address] [id number] [address] [place] [address], [place] [address] Sep, [facility] [address] [id number] [address] [place] [address], [place] [address] Sep, [facility] [address] [id number] [address] [place] [address], [place] [address] Sep, [facility] [address] [id number] [address] [place] [address], [place] [address] Sep, [facility] [address] [id number] [address] [place] [address], [place] [address] Sep, [facility] [address] [id number] [address] [place] [address], [place] [address] Sep, [facility] [address] [id number] [address] [place] [address], [place] [address] Sep, [facility] [address] [id number] [address] [place] [address], [place] [address] Sep, [facility] [address] [id number] [address] [place] [address], [place] [address] Aug, [facility] [address] [id number] [address] [place] [address], [place] [address] Aug, [facility] [address] [id number] [address] [place] [address], [place] [address] Aug, [facility] [address] [id number] [address] [place] [address], [place] [address] Aug, [facility] [address] [id number] [address] [place] [address], [place] [address] 16 Aug, 2014 [facility] [address] [id number] [address] [place] [address], [place] [address] Aug, [facility] [address] [id number] [address] [place] [address], [place] [address] Aug, [facility] [address] [id number] [address] [place] [address], [place] [address] Aug, [facility] [address] [id number] [address] [place] [address], [place] [address] Aug, [facility] [address] [id number] [address] [place] [address], [place] [address] 29 Jul, 2014 [facility] [address] [id number] [address] [place] [address], [place] [address] 29 Jul, 2014 [facility] [address] [id number] [address] [place] [address], [place] [address] Jul, [facility] [address] [id number] [address] [place] [address], [place] [address] Jul, 2013 [facility] [address] [id number] [address] [place] [address], [place] [address] Jul, [facility] [address] [id number] [address] [place] [address], [place] [address] Jul, [facility] [address] [id number] [address] [place] [address], [place] [address] Jul, [facility] [address] [id number] [address] [place] [address], [place] [address] Jul, 2013 [facility] [address] [id number] [address] [place] [address], [place] [address] Jul, [facility] [address] [id number] [address] [place] [address], [place] [address] Jul, [facility] [address] [id number] [address] [place] [address], [place] [address] Jun, [facility] [address] [id number] [address] [place] [address], [place] [address] Jun, [facility] [address] [id number] [facility] [place] [address] Jun, [facility] [address] [id number] [address] [place] [address], [place] [address] Jun, [facility] [address] [id number] [facility] [place] [address] Jun, [facility] [address] [id number] [address] [place] [address], [place] [address] Jun, [facility] [address] [id number] [address] [place] [address], [place] [address] Jun, [facility] [address] [id number] [address] [place] [address], [place] [address] Jun, [facility] [address] [id number] [address] [place] [address], [place] [address] Jun, [facility] [address] [id number] [address] [place] [address], [place] [address] Jun, [facility] [address] [id number] [address] [place] [address], [place] [address] Jun, [facility] [address] [id number] [address] [place] [address], [place] [address] Jun, [facility] [address] [id number] [address] [place] [address], [place] [address] May, [facility] [address] [id number] [address] [place] [address], [place] [address] May, [facility] [address] [id number] [address] [place] [address], [place] [address] May, [facility] [address] [id number] [address] [place] [address], [place] [address] May, [facility] [address] [id number] [address] [place] [address], [place] [address] May, [facility] [address] [id number] [facility] [place] [address] May, [facility] [address] [id number] [address] [place] [address], [place] [address] March, [facility] [address] [id number] [address] [place] [address], [place] [address] March, [facility] [address] [id number] [address] [place] [address], [place] [address] March, [facility] [address] [id number] [address] [place] [address], [place] [address] March, [facility] [address] [id number] [address] [place] [address], [place] [address] March, [facility] [address] [id number] [address] [place] [address], [place] [address] March, [facility] [address] [id number] [address] [place] [address], [place] [address] Feb, [facility] [address] [id number] [address] [place] [address], [place] [address] Feb, [facility] [address] [id number] [address] [place] [address], [place] [address] Feb, [facility] [address] [id number] [address] [place] [address], [place] [address] Feb, [facility] [address] [id number] [address] [place] [address], [place] [address] Jan, [facility] [address] [id number] [address] [place] [address], [place] [address] Jan, [facility] [address] [id number] [address] [place] [address], [place] [address] Jan, [facility] [address] [id number] [address] [place] [address], [place] [address] Jan, [facility] [address] [id number] [address] [place] [address], [place] [address] Jan, [facility] [address] [id number] [address] [place] [address], [place] [address] Jan, [facility] [address] [id number] [address] [place] [address], [place] [address] Jan, [facility] [address] [id number] [address] [place] [address], [place] [address] Jan, [facility] [address] [id number] [address] [place] [address], [place] [address] Jan, [facility] [address] [id number] [address] [place] [address], [place] [address] Jan, [facility] [address] [id number] [address] [place] [address], [place] [address] Jan, [facility] [address] [id number] [address] [place] [address], [place] [address] Jan, [facility] [address] [id number] [address] [place] [address], [place] [address] Dec, [facility] [address] [id number] [address] [place] [address], [place] [address] Dec, [facility] [address] [id number] [address] [place] [address], [place] [address] Dec, [facility] [address] [id number] [address] [place] [address], [place] [address] Dec, [facility] [address] [id number] [address] [place] [address], [place] [address] Dec, [facility] [address] [id number] [address] [place] [address], [place] [address] Dec, [facility] [address] [id number] [address] [place] [address], [place] [address] Nov, [facility] [address] [id number] [address] [place] [address], [place] [address] Nov, [facility] [address] [id number] [address] [place] [address], [place] [address] 13 Oct, 2013 [facility] [address] [id number] [address] [place] [address], [place] [address] Oct, [facility] [address] [id number] [address] [place] [address], [place] [address] Oct, [facility] [address] [id number] [address] [place] [address], [place] [address] Oct, [facility] [address] [id number] [address] [place] [address], [place] [address] Oct, [facility] [address] [id number] [address] [place] [address], [place] [address] Oct, [facility] [address] [id number] [address] [place] [address], [place] [address] Sep, [facility] [address] [id number] [address] [place] [address], [place] [address] Sep, [facility] [address] [id number] [address] [place] [address], [place] [address] Sep, [facility] [address] [id number] [address] [place] [address], [place] [address] Sep, [facility] [address] [id number] [address] [place] [address], [place] [address] Aug, [facility] [address] [id number] [address] [place] [address], [place] [address] Aug, [facility] [address] [id number] [address] [place] [address], [place] [address] 08 Aug, 2013 [facility] [address] [id number] [address] [place] [address], [place] [address] 17 Jul, 2013 [facility] [address] [id number] [address] [place] [address], [place] [address] 14 Jul, 2013 [facility] [address] [id number] [address] [place] [address], [place] [address] Jul, [facility] [address] [id number] [address] [place] [address], [place] [address] Jun, [facility] [address] [id number] [address] [place] [address], [place] [address] Jun, [facility] [address] [id number] [address] [place] [address], [place] [address] Jun, [facility] [address] [id number] [address] [place] [address], [place] [address] Apr, [facility] [address] [id number] [address] [place] [address], [place] [address] Apr, [facility] [address] [id number] [address] [place] [address], [place] [address] March, [facility] [address] [id number] [address] [place] [address], [place] [address] March, [facility] [address] [id number] [address] [place] [address], [place] [address] March, [facility] [address] [id number] [address] [place] [address], [place] [address] March, [facility] [address] [id number] [address] [place] [address], [place] [address] Feb, [facility] [address] [id number] [address] [place] [address], [place] [address] Jan, [facility] [address] [id number] [address] [place] [address], [place] [address] Dec, [facility] [address] [id number] [address] [place] [address], [place] [address] Dec, [facility] [address] [id number] [address] [place] [address], [place] [address] Dec, [facility] [address] [id number] [address] [place] [address], [place] [address] Nov, [facility] [address] [id number] [address] [place] [address], [place] [address] 13 Oct, 2012 [facility] [address] [id number] [address] [place] [address], [place] [address] 13 Oct, 2012 [facility] [address] [id number] [address] [place] [address], [place] [address] Sep, [facility] [address] [id number] [address] [place] [address], [place] [address] Sep, [facility] [address] [id number] [address] [place] [address], [place] [address] Sep, [facility] [address] [id number] [address] [place] [address], [place] [address] Sep, [facility] [address] [id number] [address] [place] [address], [place] [address] Sep, [facility] [address] [id number] [address] [place] [address], [place] [address] Sep, [facility] [address] [id number] [address] [place] [address], [place] [address] Sep, [facility] [address] [id number] [address] [place] [address], [place] [address] Aug, [facility] [address] [id number] [address] [place] [address], [place] [address] 16 Aug, 2012 [facility] [address] [id number] [address] [place] [address], [place] [address] Aug, [facility] [address] [id number] [address] [place] [address], [place] [address] Aug, [facility] [address] [id number] [address] [place] [address], [place] [address] Aug, [facility] [address] [id number] [address] [place] [address], [place] [address] 08 Aug, 2012 [facility] [address] [id number] [address] [place] [address], [place] [address] 07 Aug, 2012 [facility] [address] [id number] [address] [place] [address], [place] [address] Aug, [facility] [address] [id number] [address] [place] [address], [place] [address] Jul, [facility] [address] [id number] [address] [place] [address], [place] [address] Jul, [facility] [address] [id number] [address] [place] [address], [place] [address] Jun, [facility] [address] [id number] [address] [place] [address], [place] [address] May, [facility] [address] [id number] [address] [place] [address], [place] [address] Apr, [facility] [address] [id number] [address] [place] [address], [place] [address] Apr, [facility] [address] [id number] [address] [place] [address], [place] [address] Apr, [facility] [address] [id number] [address] [place] [address], [place] [address] March, [facility] [address] [id number] [address] [place] [address], [place] [address] March, [facility] [address] [id number] [address] [place] [address], [place] [address] March, [facility] [address] [id number] [address] [place] [address], [place] [address] March, [facility] [address] [id number] [address] [place] [address], [place] [address] March, [facility] [address] [id number] [address] [place] [address], [place] [address] March, [facility] [address] [id number] [address] [place] [address], [place] [address] March, [facility] [address] [id number] [address] [place] [address], [place] [address] Jan, [facility] [address] [id number] [address] [place] [address], [place] [address] Jan, [facility] [address] [id number] [address] [place] [address], [place] [address] 20 Jan, 2012 [facility] [address] [id number] [address] [place] [address], [place] [address] 13 Jan, 2012 [facility] [address] [id number] [address] [place] [address], [place] [address] Jan, [facility] [address] [id number] [address] [place] [address], [place] [address] 08 Dec, 2011 [facility] [address] [id number] [address] [place] [address], [place] [address] 06 Dec, 2011 [facility] [address] [id number] [address] [place] [address], [place] [address] Nov, [facility] [address] [id number] [address] [place] [address], [place] [address] Nov, [facility] [address] [id number] [address] [place] [address], [place] [address] Nov, [facility] [address] [id number] [address] [place] [address], [place] [address] Nov, [facility] [address] [id number] [address] [place] [address], [place] [address] Oct, [facility] [address] [id number] [address] [place] [address], [place] [address] Oct, [facility] [address] [id number] [address] [place] [address], [place] [address] 14 Sep, 2011 [facility] [address] [id number] [address] [place] [address], [place] [address] 10 Sep, 2011 [facility] [address] [id number] [address] [place] [address], [place] [address] 10 Sep, 2011 [facility] [address] [id number] [address] [place] [address], [place] [address] 11 May, 2011 [facility] [address] [id number] [address] [place] [address], [place] [address] Nov, [facility] [address] [id number] [address] [place] [address], [place] [address] 29 Oct, 2010 [facility] [address] [id number] [address] [place] [address], [place] [address] 14 Oct, 2010 [facility] [address] [id number] [address] [place] [address], [place] [address] 08 Oct, 2010 [facility] [address] [id number] [address] [place] [address], [place] [address] 15 Sep, 2010 [facility] [address] [id number] [address] [place] [address], [place] [address] Sep, [facility] [address] [id number] [address] [place] [address], [place] [address] Aug, [facility] [address] [id number] [address] [place] [address], [place] [address] March, [facility] [address] [id number] [address] [place] [address], [place] [address] Oct, [facility] [address] [id number] [address] [place] [address], [place] [address] 17 Oct, 2009 [facility] [address] [id number] [address] [place] [address], [place] [address] Oct, [facility] [address] [id number] [address] [place] [address], [place] [address] Oct, [facility] [address] [id number] [address] [place] [address], [place] [address] Sep, [facility] [address] [id number] [address] [place] [address], [place] [address] Sep, [facility] [address] [id number] [address] [place] [address], [place] [address] Sep, [facility] [address] [facility] [id number] [place] [id number] Aug, [facility] [address] [facility] [id number] [place] [address] Aug, [facility] [address] [facility] [id number] [place] [id number] Aug, [facility] [address] [facility] [id number] [place] [id number] Jan, IMMUNIZATIONS No Known Immunizations SOCIAL HISTORY [...]
--- OUTSIDE RECORDS SUMMARY | 2020-06-13 15:59 | XMS REPORT ---
Author Author Jah Durant Doctor Organization [facility] Address Unknown Phone Unavailable Care Team Providers Care Health Underwriter Name Role Phone Migration, Doctor Unavailable Unavailable PROBLEMS Type Condition ICD9-CM Code FCG68-GU Code Onset Dates Condition S tatus SNOMED Code Problem Chronic pain G89.29 Active 4451409 1 Problem Hypothyroid E03.9 Active 15341075 Problem Neuropathy G62.9 Active 456072328 Problem Mixed hyperlipidemia E78.2 Active 500603667 Problem Overactive bladder N32.81 Active 2 74307760 Problem halfway 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 Z79.4 Active 874046180 Problem Type 2 diabetes mellitus with hyperglycemia E11.65 Active 59099206 Problem Essential (primary) hypertension I10 Active 04858772 Problem Major depressive disorder, recurrent, in full remission F33.42 Active 54543758 Problem Irritable bowel syndrome with diarrhea K58.0 Active 602633505 Problem halfway (current) use of insulin Z79.4 Active 342238101 Problem Gastroesophageal reflux disease with esophagitis K 21.0 Active 701240162 Problem Anxiety disorder, unspecified type F41.9 Active 518860212 Problem Gastroparesis K31.84 Active 031043 006 Problem 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 Active 470770587 Problem Chronic obstructive pulmonary disease, unspecified COPD ty pe J44.9 Active 88251268 ALLERGIES No Information ENCOUNTERS Encounter Location Date Diagnosis [facility] [address] [facility] [id number] [address] [place] [address] 03 Feb, [address] [facility] [address] [facility] [id number] [address] [place] [address] 13 Jan, 2020 Type 2 diabetes mellitus wit h hyperglycemia E11.65 ; halfway (current) use of insulin Z79.[address] [facility] [address] [facility] [id number] [address] [place] [address] 10 Jan, 2020 Type 2 diabetes mellitus wit h diabetic autonomic (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 ; Hypothyroid E03.9 ; Dyshydrosis L30.1 and Irritable bowel syndrome with diarrhea K58.0 [facility] [address] [place] [id number] [address] [place] [address] Jan, Chronic pain G89.29 [facility] [address] [place] [address] Dec, Chronic pain G89.29 [facility] [address] [place] [id number] [address] [place] [address] Dec, [facility] [address] [place] [address] Dec, [facility] [address] [place] [id number] [address] [place] [address] Nov, Chronic pain G89.29 [place] [address] [place] [address] Oct, Chronic pain G89.29 [place] [address] [place] [address] Sep, Chronic pain G89.29 [place] [address] [place] [id number] [address] [place] [address] Sep, Type 2 diabetes mellitus wit h diabetic autonomic (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 ; Irritable bowel syndrome with diarrhea K58.0 ; Essential (primary) hypertension I10 and Encounter for immunization Z23 [facility] [address] [place] [id number] [address] [place] [address] Aug, Chronic pain G89.29 [place] [address] [place] [id number] [address] [place] [address] Aug, [place] [address] [place] [id number] [address] [place] [address] Jul, Chronic pain G89.29 [place] [address] [place] [id number] [address] [place] [address] Jun, Other chronic pain G89.29 [facility] [address] [facility] [id number] [address] [place] [address] Jun, [place] [address] [facility] [id number] [address] [place] [address] Jun, Chronic pain G89.29 [place] [address] [facility] [id number] [address] [place] [address] Jun, Neuropathy G62.9 [place] [address] [facility] [id number] [address] [place] [address] Jun, Encounter for Medicare [facility] wellness exam Z00.00 ; Type 2 diabetes mellitus with hyperglycemia E11.65 ; Mixed hyperlipidemia E78.2 ; Hypothyroid E03.9 ; Gastroesophageal reflux disease with esophagitis K21.0 ; Essential (primary) hypertension I10 ; Major depressive disorder, recurrent, in full remission F33.42 ; Chronic obstructive pulmonary disease, unspecified COPD type J44.9 ; Neuropathy G62.9 and Encounter for immunization Z23 [place] [address] [facility] [id number] [address] [place] [address] Jun, Irritable bowel syndrome wit h diarrhea K58.0 [place] [address] [facility] [id number] [address] [place] [address] May, Chronic pain G89.29 [place] [address] [facility] [id number] [address] [place] [address] May, Type 2 diabetes mellitus wit h hyperglycemia E11.65 and Neuropathy G62.9 [place] [address] [facility] [id number] [address] [place] [address] May, Chronic pain G89.29 [place] [address] [facility] [id number] [address] [place] [address] Apr, Poison maryam dermatitis L23.7 [place] [address] [facility] [id number] [address] [place] [address] Apr, Chronic pain G89.29 [place] [address] [place] [id number] [address] [place] [address] March, Type 2 diabetes mellitus wit h hyperglycemia E11.65 [facility] [address] [facility] [id number] [address] [place] [address] March, Chronic pain G89.29 [facility] [address] [facility] [id number] [address] [place] [address] March, [address] [id number] [address] Feb, [facility] [address] [facility] [id number] [address] [place] [address] Feb, Other chronic pain G89.29 an d Chronic pain G89.29 [facility] [address] [facility] [id number] [address] [place] [address] Jan, Mixed hyperlipidemia E78.2 [facility] [address] [facility] [id number] [address] [place] [address] Jan, Chronic pain G89.29 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 [address] [facility] [id number] [address] [place] [address] Dec, Chronic pain G89.29 [facility] [address] [facility] [id number] [address] [place] [address] Nov, Chronic pain G89.29 [facility] [address] [facility] [id number] [address] [place] [address] Nov, [facility] [address] [facility] [id number] [address] [place] [address] Oct, Chronic pain G89.29 [facility] [address] [facility] [id number] [address] [place] [address] Oct, [place] [address] [facility] [id number] [address] [place] [address] Sep, [place] [address] [place] [id number] [address] [place] [address] Sep, Type 2 diabetes mellitus wit h hyperglycemia E11.65 [place] [address] [place] [id number] [place] [address] Sep, Chronic pain G89.29 [place] [address] [place] [id number] [address] [place] [address] Sep, [place] [address] [place] [id number] [place] [address] Sep, Type 2 diabetes mellitus wit h hyperglycemia E11.65 ; Irritable bowel syndrome with diarrhea K58.0 ; Gastroparesis K31.84 ; 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 and Dermatitis L30.9 [place] [address] [place] [address] Aug, Chronic pain G89.29 [place] [address] [address] Jul, Chronic pain G89.29 [place] [address] [address] Jun, Type 2 diabetes mellitus wit h hyperglycemia E11.65 ; Neuropathy G62.9 ; Recurrent major depressive disorder, in partial remission F33.41 ; Chronic pain G89.29 and Hypertriglyceridemia E78.1 [place] [address] [place] [id number] [address] [place] [address] Jun, Hypothyroid E03.9 [place] [address] [place] [id number] [address] [place] [address] Jun, Major depressive disorder, r ecurrent episode, moderate F33.1 and Anxiety disorder, unspecified type F41.9 [place] [address] [place] [id number] [address] [place] [address] Jun, [facility] [address] [facility] [id number] [address] [place] [address] Jun, Type 2 diabetes mellitus wit h hyperglycemia E11.65 ; halfway 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 Z79.4 ; Recurrent major depressive disorder, in partial remission F33.41 ; Hypothyroid E03.9 ; Candidal dermatitis B37.2 and Weakness generalized R53.1 [place] [address] [facility] [id number] [address] [place] [address] May, [facility] [address] [place] [id number] [address] [place] [address] May, [place] [address] [place] [id number] [place] [address] May, [place] [address] [place] [id number] [place] [address] May, Generalized abdominal pain R 10.84 and Candidal dermatitis B37.2 [place] [address] [place] [id number] [address] [place] [address] May, [place] [address] [place] [id number] [place] [address] May, [place] [address] [place] [id number] [place] [address] May, Nodular radiologic density R 93.8 ; Weight loss, unintentional R63.4 and Pulmonary emphysema, unspecified emphysema type J43.9 [place] [address] [place] [id number] [place] [address] May, Chronic pain G89.29 [place] [address] [place] [id number] [place] [address] May, Syncope and collapse R55 ; C hronic fatigue R53.[address] lung screening R91.8 [place] [address] [place] [id number] [place] [address] May, [facility] [address] [facility] [id number] [address] [place] [address] Apr, Chronic fatigue R53.82 ; Abn ormal chest CT R93.8 ; Elevated erythrocyte sedimentation rate R70.0 ; Hypothyroid E03.9 and Recurrent major depressive disorder, in partial remission F33.41 [facility] [address] [facility] [id number] [address] [place] [address] Apr, Hypothyroid E03.9 [facility] [address] [facility] [id number] [address] [place] [address] Apr, Depression F32.9 [facility] [address] [facility] [id number] [address] [place] [address] Apr, [facility] [address] [facility] [id number] [address] [place] [address] March, [facility] [address] [facility] [id number] [address] [place] [address] March, Hypothyroid E03.9 [facility] [address] [facility] [id number] [address] [place] [address] March, Diabetes mellitus E11.[address] [facility] [address] [facility] [id number] [address] [place] [address] March, Diabetes mellitus E11.9 [facility] [address] [facility] [id number] [address] [place] [address] March, Hypothyroid E03.9 and Elevat ed liver enzymes R74.8 [facility] [address] [facility] [id number] [address] [place] [address] March, Type 2 diabetes mellitus wit h [...] major depressive disorder, in partial remission F33.41 [place] [address] [place] [id number] [address] [place] [address] Feb, Chronic pain G89.29 [place] [address] [place] [id number] [address] [place] [address] Feb, Type 2 diabetes mellitus wit h hyperglycemia E11.65 and Skin lesion of scalp L98.9 [place] [address] [place] [id number] [address] [place] [address] Feb, [place] [address] [place] [id number] [address] [place] [address] Jan, Type 2 diabetes mellitus wit h [...] and Irritable bowel syndrome with diarrhea K58.0 [place] [address] [place] [id number] [address] [place] [address] Jan, [place] [address] [place] [id number] [address] [place] [address] Jan, Controlled substance agreeme nt signed Z79.899 [place] [address] [place] [id number] [address] [place] [address] Dec, Type 2 diabetes mellitus wit h [...] Z91.19 and Overweight (BMI 25.0-29.9) E66.3 [facility] [address] [facility] [id number] [address] [place] [address] Dec, Controlled substance agreeme nt signed Z79.899 [facility] [address] [facility] [id number] [address] [place] [address] Nov, Type 2 diabetes mellitus wit h hyperglycemia E11.65 and Current non- adherence to medical treatment Z91.19 [facility] [address] [facility] [id number] [address] [place] [address] Nov, [facility] [address] [place] [id number] [address] [place] [address] Nov, Chronic pain G89.29 [place] [address] [place] [id number] [address] [place] [address] Nov, [place] [address] [place] [id number] [address] [place] [address] Nov, Hypothyroid E03.9 [facility] [address] [facility] [id number] [address] [place] [address] Nov, Hypothyroid E03.9 [place] [address] [place] [id number] [address] [place] [address] Nov, Pulmonary emphysema, unspeci fied emphysema type J43.9 and Irritable bowel syndrome with diarrhea K58.0 [place] [address] [place] [id number] [address] [place] [address] Oct, [facility] [address] [place] [id number] [address] [place] [address] Oct, [place] [address] [place] [address] Oct, [facility] [address] [place] [id number] [address] [place] [address] Oct, [place] [address] [place] [id number] [address] [place] [address] Oct, Chronic pain G89.29 [place] [address] [address] Oct, Diabetes mellitus E11.9 ; De pression F32.9 ; Mixed hyperlipidemia E78.2 ; Hypotension, unspecified hypotension type I95.9 ; Pulmonary emphysema, unspecified emphysema type J43.9 and Weight loss, unintentional R63.4 [place] [address] [address] Oct, Chronic pain G89.29 [place] [address] [address] Sep, Chronic pain G89.29 [place] [address] [address] Sep, Hypothyroid E03.9 and Diabet es mellitus E11.9 [place] [address] [address] Aug, Type 2 diabetes mellitus wit h hyperglycemia E11.65 ; halfway 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 Z79.4 ; Essential (primary) hypertension I10 ; Hypothyroid E03.9 ; Neuropathy G62.9 ; Chronic pain G89.29 ; Mixed hy perlipidemia E78.2 and Encounter for immunization Z23 [place] [address] [address] Aug, Chronic pain G89.29 [place] [address] [address] Aug, Overactive bladder N32.81 ; Diabetes mellitus E11.9 and Chronic pain G89.29 [place] [address] [address] Jul, [place] [address] [address] Jun, [place] [address] [address] Jun, [place] [address] [facility] [id number] [address] [place] [address] Jun, Hypothyroid E03.9 [facility] [address] [facility] [id number] [address] [place] [address] Jun, Diabetes mellitus E11.9 ; Hy pothyroid E03.9 ; Neuropathy G62.9 ; Chronic pain G89.29 and Neck mass R22.1 [facility] [address] [id number] [address] [place] [address] Apr, [facility] [address] [facility] [id number] [address] [place] [address] Apr, Acute cystitis without hemat uria N30.00 [facility] [address] [facility] [id number] [address] [place] [address] March, [facility] [address] [facility] [id number] [address] [place] [address] March, [facility] [address] [facility] [id number] [address] [place] [address] March, Near syncope R55 [facility] [address] [facility] [id number] [address] [place] [address] Feb, [facility] [address] [facility] [id number] [address] [place] [address] Feb, Chronic pain G89.29 [facility] [address] [facility] [id number] [address] [place] [address] Feb, [facility] [address] [facility] [id number] [address] [place] [address] Feb, [facility] [address] [facility] [id number] [address] [place] [address] Jan, Chronic pain G89.29 [facility] [address] [facility] [id number] [address] [place] [address] Jan, [facility] [address] [facility] [id number] [address] [place] [address] 16 Jan, 2017 [facility] [address] [place] [id number] [address] [place] [address] 14 Jan, 2017 Diabetes mellitus E11.9 ; Hy pothyroid E03.9 ; GERD (gastroesophageal reflux disease) K21.9 ; Insomnia G47.00 ; Functional 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 ; Neuropathy G62.9 ; Depression F32.9 ; Chronic pain G89.29 ; Irritable bowel syndrome with diarrhea K58.0 ; Overactive bladder N32.81 ; Mixed hyperlipidemia E78.[address] [facility] [address] [facility] [id number] [address] [place] [address] Dec, [facility] [address] [place] [id number] [address] [place] [address] [address], [address] [facility] [address] [place] [id number] [address] [place] [address] Dec, [facility] [address] [place] [id number] [place] [address] Dec, [facility] [address] [facility] [id number] [address] [place] [address] Dec, Chronic pain G89.29 [facility] [address] [facility] [id number] [address] [place] [address] [address], [address] [facility] [address] [place] [id number] [place] [address] [address] Dec, 2016 [facility] [address] [place] [id number] [address] [place] [address] 17 Dec, 2016 Type 2 diabetes mellitus wit h foot ulcer E11.621 [facility] [address] [place] [id number] [address] [place] [address] 17 Dec, 2016 Type 2 diabetes mellitus wit h foot ulcer E11.621 [facility] [address] [place] [id number] [address] [place] [address] 14 Dec, 2016 HTN (hypertension) I10 ; Dep ression F32.9 ; Type 2 diabetes mellitus with foot ulcer E11.621 ; Functional 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 ; Irritable bowel syndrome with diarrhea K58.0 ; Chronic pain G89.29 ; Insomnia G47.00 ; Overactive bladder N32.81 ; Mixed hyperlipidemia E78.2 ; Gastroesophageal reflux disease with esophagitis K21.0 and Acquired hypothyroidism E03.9 [place] [address] [place] [id number] [place] [address] Nov, [place] [address] [place] [id number] [place] [address] Oct, [place] [address] [place] [id number] [place] [address] Oct, [place] [address] [place] [id number] [place] [address] Oct, [place] [address] [place] [id number] [place] [address] Sep, Functional 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 ; HTN (hypertension) I10 ; Diabetes mellitus E11.9 ; Depression F32.9 ; Overactive bladder N32.81 ; Mixed hyperlipidemia E78.2 ; Gastroesophageal reflux disease without esophagitis K21.9 ; Chronic pain G89.29 ; Insomnia G47.00 and Acquired hypothyroidism E03.9 [place] [address] [place] [id number] [place] [address] Sep, [place] [address] [place] [id number] [place] [address] Aug, Encounter for immunization Z 23 [place] [address] [place] [id number] [address] [place] [address] Aug, [place] [address] [place] [id number] [place] [address] Jul, [place] [address] [place] [id number] [address] [place] [address] Jun, Type 2 diabetes mellitus wit hout complications E11.9 ; HTN (hypertension) I10 ; Hypothyroid E03.9 ; Neuropathy G62.9 ; Depression F32.9 ; Chronic pain G89.29 ; GERD (gastroesophageal reflux disease) K21.9 ; Insomnia G47.00 ; Overactive bladder N32.81 ; Mixed hyperlipidemia E78.2 ; Diarrhea of infectious origin A09 and Environmental allergies Z91.09 [place] [id number] [address] Apr, [place] [address] [address] March, Hypothyroidism, unspecified E03.9 and Mixed hyperlipidemia E78.2 [place] [address] [address] March, Diabetes mellitus E11.9 ; HT N (hypertension) I10 ; Hypothyroid E03.9 ; Depression F32.9 ; Overactive bladder N32.81 ; Other chronic pain G89.29 ; Lumbago with sciatica, unspecified side M54.40 ; Environmental allergies Z91.09 and Gastroesophageal reflux disease, esophagitis presence not specified K21.9 [place] [address] [address] March, [place] [address] [address] Jan, HTN (hypertension) I10 ; Hyp othyroid E03.9 ; Neuropathy G62.9 ; Diabetes mellitus E11.9 ; Chronic pain G89.29 ; GERD (gastroesophageal reflux disease) K21.9 ; Overactive bladder N32.81 and Depression F32.9 [place] [address] [address] 12 Dec, 2015 Ear pain, left H92.02 ; HTN (hypertension) I10 ; Hypothyroid E03.9 ; Neuropathy G62.9 ; Diabetes mellitus E11.9 ; Depression F32.9 ; GERD (gastroesophageal reflux disease) K21.9 ; Insomnia G47.00 and Overactive bladder N32.81 [place] [address] [address] Nov, Overactive bladder N32.81 an d Chronic pain G89.29 [place] [address] [address] Nov, Kidney failure N19 [place] [address] [address] Nov, [place] [address] [address] Nov, [place] [address] [address] Nov, Diabetes mellitus E11.9 ; De pression F32.9 ; Chronic pain G89.29 ; GERD (gastroesophageal reflux disease) K21.9 ; Insomnia G47.00 ; HTN (hypertension) I10 ; Hypothyroid E03.9 ; COPD (chronic obstructive pulmonary disease) J44.9 ; Bladder incontinence R32 and Incontinence R32 [place] [address] [address] Sep, Type 2 diabetes mellitus wit h foot ulcer E11.621 and Chromosomal abnormality, 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 [address] [address] Jun, [facility] [address] [address] May, Essential hypertension, ivis gn 401.1 ; Unspecified hypothyroidism 244.9 ; Insomnia, unspecified 780.52 ; Shortness of breath 786.05 ; Depression 311 ; COPD (chronic obstructive pulmonary disease) 496 ; GERD (gastroesophageal reflux disease) 530.81 and Diabetes 1.5, 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 [facility] [address] [address] May, [facility] [address] [address] May, [facility] [address] [address] May, Shortness of breath 786.05 ; Essential hypertension, benign 401.1 ; Diabetes mellitus 250.00 ; Hyperlipidemia 272.4 ; Hypothyroid 244.9 ; Insomnia 780.[address] [facility] [address] [address] Apr, [facility] [address] [address] March, Shortness of breath 786.05 ; Nausea with vomiting 787.01 ; Essential hypertension, benign 401.1 ; Diabetes mellitus 250.00 ; Hyperlipidemia 272.[address] [facility] [address] [address] Feb, [facility] [address] [address] Feb, [facility] [address] [address] Jan, [facility] [address] [place] [address] 24 Jan, 2015 [facility] [address] [id number] [address] [place] [address], [place] [address] Jan, [facility] [address] [id number] [address] [place] [address], [place] [address] Jan, [facility] [address] [id number] [address] [place] [address], [place] [address] Jan, 2014 [facility] [address] [id number] [address] [place] [address], [place] [address] 05 Jan, 2015 [facility] [address] [id number] [address] [place] [address], [place] [address] Jan, [facility] [address] [id number] [address] [place] [address], [place] [address] Jan, [facility] [address] [id number] [address] [place] [address], [place] [address] Jan, [facility] [address] [id number] [address] [place] [address], [place] [address] Jan, [facility] [address] [id number] [address] [place] [address], [place] [address] Dec, 2014 [facility] [address] [id number] [address] [place] [address], [place] [address] Dec, 2014 [facility] [address] [id number] [address] [place] [address], [place] [address] Dec, 2014 [facility] [address] [id number] [address] [place] [address], [place] [address] Dec, 2014 [facility] [address] [id number] [address] [place] [address], [place] [address] Dec, 2014 [facility] [address] [id number] [address] [place] [address], [place] [address] Dec, 2014 [facility] [address] [id number] [address] [place] [address], [place] [address] Dec, [facility] [address] [id number] [facility] [place] [address] Dec, 2014 [facility] [address] [id number] [address] [place] [address], [place] [address] Dec, 2014 [facility] [address] [id number] [address] [place] [address], [place] [address] Dec, 2014 [facility] [address] [id number] [address] [place] [address], [place] [address] Oct, [facility] [address] [id number] [address] [place] [address], [place] [address] Oct, [facility] [address] [id number] [address] [place] [address], [place] [address] Oct, [facility] [address] [id number] [address] [place] [address], [place] [address] Oct, [facility] [address] [id number] [address] [place] [address], [place] [address] Oct, [facility] [address] [id number] [address] [place] [address], [place] [address] Oct, [facility] [address] [id number] [address] [place] [address], [place] [address] Oct, [facility] [address] [id number] [address] [place] [address], [place] [address] Oct, [facility] [address] [id number] [address] [place] [address], [place] [address] Oct, [facility] [address] [id number] [address] [place] [address], [place] [address] Oct, [facility] [address] [id number] [address] [place] [address], [place] [address] Oct, [facility] [address] [id number] [address] [place] [address], [place] [address] Oct, [facility] [address] [id number] [address] [place] [address], [place] [address] Oct, [facility] [address] [id number] [address] [place] [address], [place] [address] Oct, [facility] [address] [id number] [address] [place] [address], [place] [address] Sep, [facility] [address] [id number] [address] [place] [address], [place] [address] Sep, [facility] [address] [id number] [address] [place] [address], [place] [address] Sep, [facility] [address] [id number] [address] [place] [address], [place] [address] Sep, [facility] [address] [id number] [address] [place] [address], [place] [address] Sep, [facility] [address] [id number] [address] [place] [address], [place] [address] Sep, [facility] [address] [id number] [address] [place] [address], [place] [address] Sep, [facility] [address] [id number] [address] [place] [address], [place] [address] Sep, [facility] [address] [id number] [address] [place] [address], [place] [address] Sep, [facility] [address] [id number] [address] [place] [address], [place] [address] Aug, [facility] [address] [id number] [address] [place] [address], [place] [address] Aug, [facility] [address] [id number] [address] [place] [address], [place] [address] Aug, [facility] [address] [id number] [address] [place] [address], [place] [address] Aug, [facility] [address] [id number] [address] [place] [address], [place] [address] 16 Aug, 2014 [facility] [address] [id number] [address] [place] [address], [place] [address] Aug, [facility] [address] [id number] [address] [place] [address], [place] [address] Aug, [facility] [address] [id number] [address] [place] [address], [place] [address] Aug, [facility] [address] [id number] [address] [place] [address], [place] [address] Aug, [facility] [address] [id number] [address] [place] [address], [place] [address] 29 Jul, 2014 [facility] [address] [id number] [address] [place] [address], [place] [address] 29 Jul, 2014 [facility] [address] [id number] [address] [place] [address], [place] [address] Jul, [facility] [address] [id number] [address] [place] [address], [place] [address] Jul, 2013 [facility] [address] [id number] [address] [place] [address], [place] [address] Jul, [facility] [address] [id number] [address] [place] [address], [place] [address] Jul, [facility] [address] [id number] [address] [place] [address], [place] [address] Jul, [facility] [address] [id number] [address] [place] [address], [place] [address] Jul, 2013 [facility] [address] [id number] [address] [place] [address], [place] [address] Jul, [facility] [address] [id number] [address] [place] [address], [place] [address] Jul, [facility] [address] [id number] [address] [place] [address], [place] [address] Jun, [facility] [address] [id number] [address] [place] [address], [place] [address] Jun, [facility] [address] [id number] [facility] [address] Jun, [facility] [address] [id number] [address] [place] [address], [place] [address] Jun, [facility] [address] [id number] [facility] [place] [address] Jun, [facility] [address] [id number] [address] [place] [address], [place] [address] Jun, [facility] [address] [id number] [address] [place] [address], [place] [address] Jun, [facility] [address] [id number] [address] [place] [address], [place] [address] Jun, [facility] [address] [id number] [address] [place] [address], [place] [address] Jun, [facility] [address] [id number] [address] [place] [address], [place] [address] Jun, [facility] [address] [id number] [address] [place] [address], [place] [address] Jun, [facility] [address] [id number] [address] [place] [address], [place] [address] Jun, [facility] [address] [id number] [address] [place] [address], [place] [address] May, [facility] [address] [id number] [address] [place] [address], [place] [address] May, [facility] [address] [id number] [address] [place] [address], [place] [address] May, [facility] [address] [id number] [address] [place] [address], [place] [address] May, [facility] [address] [id number] [address] [place] [address], [place] [address] May, [facility] [address] [id number] [facility] [place] [address] May, [facility] [address] [id number] [address] [place] [address], [place] [address] March, [facility] [address] [id number] [address] [place] [address], [place] [address] March, [facility] [address] [id number] [address] [place] [address], [place] [address] March, [facility] [address] [id number] [address] [place] [address], [place] [address] March, [facility] [address] [id number] [address] [place] [address], [place] [address] March, [facility] [address] [id number] [address] [place] [address], [place] [address] March, [facility] [address] [id number] [address] [place] [address], [place] [address] Feb, [facility] [address] [id number] [address] [place] [address], [place] [address] Feb, [facility] [address] [id number] [address] [place] [address], [place] [address] Feb, [facility] [address] [id number] [address] [place] [address], [place] [address] Feb, [facility] [address] [id number] [address] [place] [address], [place] [address] Jan, [facility] [address] [id number] [address] [place] [address], [place] [address] Jan, [facility] [address] [id number] [address] [place] [address], [place] [address] Jan, [facility] [address] [id number] [address] [place] [address], [place] [address] Jan, [facility] [address] [id number] [address] [place] [address], [place] [address] Jan, [facility] [address] [id number] [address] [place] [address], [place] [address] Jan, [facility] [address] [id number] [address] [place] [address], [place] [address] Jan, [facility] [address] [id number] [address] [place] [address], [place] [address] Jan, [facility] [address] [id number] [address] [place] [address], [place] [address] Jan, [facility] [address] [id number] [address] [place] [address], [place] [address] Jan, [facility] [address] [id number] [address] [place] [address], [place] [address] Jan, [facility] [address] [id number] [address] [place] [address], [place] [address] Jan, [facility] [address] [id number] [address] [place] [address], [place] [address] Dec, [facility] [address] [id number] [address] [place] [address], [place] [address] Dec, [facility] [address] [id number] [address] [place] [address], [place] [address] Dec, [facility] [address] [id number] [address] [place] [address], [place] [address] Dec, [facility] [address] [id number] [address] [place] [address], [place] [address] Dec, [facility] [address] [id number] [address] [place] [address], [place] [address] Dec, [facility] [address] [id number] [address] [place] [address], [place] [address] Nov, [facility] [address] [id number] [address] [place] [address], [place] [address] Nov, [facility] [address] [id number] [address] [place] [address], [place] [address] 13 Oct, 2013 [facility] [address] [id number] [address] [place] [address], [place] [address] Oct, [facility] [address] [id number] [address] [place] [address], [place] [address] Oct, [facility] [address] [id number] [address] [place] [address], [place] [address] Oct, [facility] [address] [id number] [address] [place] [address], [place] [address] Oct, [facility] [address] [id number] [address] [place] [address], [place] [address] Oct, [facility] [address] [id number] [address] [place] [address], [place] [address] Sep, [facility] [address] [id number] [address] [place] [address], [place] [address] Sep, [facility] [address] [id number] [address] [place] [address], [place] [address] Sep, [facility] [address] [id number] [address] [place] [address], [place] [address] Sep, [facility] [address] [id number] [address] [place] [address], [place] [address] Aug, [facility] [address] [id number] [address] [place] [address], [place] [address] Aug, [facility] [address] [id number] [address] [place] [address], [place] [address] 08 Aug, 2013 [facility] [address] [id number] [address] [place] [address], [place] [address] 17 Jul, 2013 [facility] [address] [id number] [address] [place] [address], [place] [address] 14 Jul, 2013 [facility] [address] [id number] [address] [place] [address], [place] [address] Jul, [facility] [address] [id number] [address] [place] [address], [place] [address] Jun, [facility] [address] [id number] [address] [place] [address], [place] [address] Jun, [facility] [address] [id number] [address] [place] [address], [place] [address] Jun, [facility] [address] [id number] [address] [place] [address], [place] [address] Apr, [facility] [address] [id number] [address] [place] [address], [place] [address] Apr, [facility] [address] [id number] [address] [place] [address], [place] [address] March, [facility] [address] [id number] [address] [place] [address], [place] [address] March, [facility] [address] [id number] [address] [place] [address], [place] [address] March, [facility] [address] [id number] [address] [place] [address], [place] [address] March, [facility] [address] [id number] [address] [place] [address], [place] [address] Feb, [facility] [address] [id number] [address] [place] [address], [place] [address] Jan, [facility] [address] [id number] [address] [place] [address], [place] [address] Dec, [facility] [address] [id number] [address] [place] [address], [place] [address] Dec, [facility] [address] [id number] [address] [place] [address], [place] [address] Dec, [facility] [address] [id number] [address] [place] [address], [place] [address] Nov, [facility] [address] [id number] [address] [place] [address], [place] [address] 13 Oct, 2012 [facility] [address] [id number] [address] [place] [address], [place] [address] 13 Oct, 2012 [facility] [address] [id number] [address] [place] [address], [place] [address] Sep, [facility] [address] [id number] [address] [place] [address], [place] [address] Sep, [facility] [address] [id number] [address] [place] [address], [place] [address] Sep, [facility] [address] [id number] [address] [place] [address], [place] [address] Sep, [facility] [address] [id number] [address] [place] [address], [place] [address] Sep, [facility] [address] [id number] [address] [place] [address], [place] [address] Sep, [facility] [address] [id number] [address] [place] [address], [place] [address] Sep, [facility] [address] [id number] [address] [place] [address], [place] [address] Aug, [facility] [address] [id number] [address] [place] [address], [place] [address] 16 Aug, 2012 [facility] [address] [id number] [address] [place] [address], [place] [address] Aug, [facility] [address] [id number] [address] [place] [address], [place] [address] Aug, [facility] [address] [id number] [address] [place] [address], [place] [address] Aug, [facility] [address] [id number] [address] [place] [address], [place] [address] 08 Aug, 2012 [facility] [address] [id number] [address] [place] [address], [place] [address] 07 Aug, 2012 [facility] [address] [id number] [address] [place] [address], [place] [address] Aug, [facility] [address] [id number] [address] [place] [address], [place] [address] Jul, [facility] [address] [id number] [address] [place] [address], [place] [address] Jul, [facility] [address] [id number] [address] [place] [address], [place] [address] Jun, [facility] [address] [id number] [address] [place] [address], [place] [address] May, [facility] [address] [id number] [address] [place] [address], [place] [address] Apr, [facility] [address] [id number] [address] [place] [address], [place] [address] Apr, [facility] [address] [id number] [address] [place] [address], [place] [address] Apr, [facility] [address] [id number] [address] [place] [address], [place] [address] March, [facility] [address] [id number] [address] [place] [address], [place] [address] March, [facility] [address] [id number] [address] [place] [address], [place] [address] March, [facility] [address] [id number] [address] [place] [address], [place] [address] March, [facility] [address] [id number] [address] [place] [address], [place] [address] March, [facility] [address] [id number] [address] [place] [address], [place] [address] March, [facility] [address] [id number] [address] [place] [address], [place] [address] March, [facility] [address] [id number] [address] [place] [address], [place] [address] Jan, [facility] [address] [id number] [address] [place] [address], [place] [address] Jan, [facility] [address] [id number] [address] [place] [address], [place] [address] 20 Jan, 2012 [facility] [address] [id number] [address] [place] [address], [place] [address] 13 Jan, 2012 [facility] [address] [id number] [address] [place] [address], [place] [address] Jan, [facility] [address] [id number] [address] [place] [address], [place] [address] 08 Dec, 2011 [facility] [address] [id number] [address] [place] [address], [place] [address] 06 Dec, 2011 [facility] [address] [id number] [address] [place] [address], [place] [address] Nov, [facility] [address] [id number] [address] [place] [address], [place] [address] Nov, [facility] [address] [id number] [address] [place] [address], [place] [address] Nov, [facility] [address] [id number] [address] [place] [address], [place] [address] Nov, [facility] [address] [id number] [address] [place] [address], [place] [address] Oct, [facility] [address] [id number] [address] [place] [address], [place] [address] Oct, [facility] [address] [id number] [address] [place] [address], [place] [address] 14 Sep, 2011 [facility] [address] [id number] [address] [place] [address], [place] [address] 10 Sep, 2011 [facility] [address] [id number] [address] [place] [address], [place] [address] 10 Sep, 2011 [facility] [address] [id number] [address] [place] [address], [place] [address] 11 May, 2011 [facility] [address] [id number] [address] [place] [address], [place] [address] Nov, [facility] [address] [id number] [address] [place] [address], [place] [address] 29 Oct, 2010 [facility] [address] [id number] [address] [place] [address], [place] [address] 14 Oct, 2010 [facility] [address] [id number] [address] [place] [address], [place] [address] 08 Oct, 2010 [facility] [address] [id number] [address] [place] [address], [place] [address] 15 Sep, 2010 [facility] [address] [id number] [address] [place] [address], [place] [address] Sep, [facility] [address] [id number] [address] [place] [address], [place] [address] Aug, [facility] [address] [address] [id number] [address] [place] [address], [place] [address] March, [facility] [address] [id number] [address] [place] [address], [place] [address] Oct, [facility] [address] [id number] [address] [place] [address], [place] [address] 17 Oct, 2009 [facility] [address] [id number] [address] [place] [address], [place] [address] Oct, [facility] [address] [id number] [address] [place] [address], [place] [address] Oct, [facility] [address] [id number] [address] [place] [address], [place] [address] Sep, [facility] [address] [id number] [address] [place] [address], [place] [address] Sep, [facility] [address] [id number] [address] [place] [address], [place] [address] Sep, [facility] [address] [facility] [id number] [address] [place] [id number] Aug, [facility] [address] [facility] [id number] [address] [place] [phone] Aug, [facility] [address] [facility] [id number] [address] [place] [address] Aug, [facility] [address] [facility] [id number] [address] [place] [address] Jan, IMMUNIZATIONS No Known Immunizations SOCIAL HISTORY [...]
--- OUTSIDE RECORDS SUMMARY | 2020-06-13 15:59 | XMS REPORT ---
Author Author Jah Durant Doctor Organization [facility] Address Unknown Phone Unavailable Care Team Providers Care Full Stack Python Developer Name Role Phone Migration, Doctor Unavailable Unavailable PROBLEMS Type Condition ICD9-CM Code HUF02-IT Code Onset Dates Condition S tatus SNOMED Code Problem Chronic pain G89.29 Active 0096044 1 Problem Hypothyroid E03.9 Active 66813822 Problem Neuropathy G62.9 Active 652757861 Problem Mixed hyperlipidemia E78.2 Active 656160059 Problem Overactive bladder N32.81 Active 2 21596210 Problem long-term 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 Z79.4 Active 342851294 Problem Type 2 diabetes mellitus with hyperglycemia E11.65 Active 63883526 Problem Essential (primary) hypertension I10 Active 71321335 Problem Major depressive disorder, recurrent, in full remission F33.42 Active 73760383 Problem Irritable bowel syndrome with diarrhea K58.0 Active 698104627 Problem long-term (current) use of insulin Z79.4 Active 871844253 Problem Gastroesophageal reflux disease with esophagitis K 21.0 Active 729362058 Problem Anxiety disorder, unspecified type F41.9 Active 095085654 Problem Gastroparesis K31.84 Active 588898 006 Problem 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 Active 425119013 Problem Chronic obstructive pulmonary disease, unspecified COPD ty pe J44.9 Active 76886235 ALLERGIES No Information ENCOUNTERS Encounter Location Date Diagnosis [facility] [address] [facility] [id number] [address] [place] [id number] 03 Feb, 2020 Chronic pain G89.29 [facility] [address] [facility] [id number] [address] [place] [id number] 13 Jan, 2020 Type 2 diabetes mellitus wit h hyperglycemia E11.65 ; long-term (current) use of insulin Z79.4 and Hyperkalemia E87.5 [facility] [address] [facility] [id number] [address] [place] [address] 10 Jan, 2020 Type 2 diabetes mellitus wit h diabetic autonomic (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 ; Hypothyroid E03.9 ; Dyshydrosis L30.1 and Irritable bowel syndrome with diarrhea K58.0 [facility] [address] [place] [id number] [address] [place] [address] Jan, Chronic pain G89.29 [facility] [id number] [place] [address] Dec, Chronic pain G89.29 [facility] [address] [place] [id number] [address] [place] [address] Dec, [facility] [id number] [place] [address] Dec, [facility] [address] [place] [id number] [address] [place] [address] Nov, Chronic pain G89.29 [place] [id number] [place] [address] Oct, Chronic pain G89.29 [place] [id number] [place] [address] Sep, Chronic pain G89.29 [place] [address] [place] [id number] [address] [place] [address] Sep, Type 2 diabetes mellitus wit h diabetic autonomic (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 ; Irritable bowel syndrome with diarrhea K58.0 ; Essential (primary) hypertension I10 and Encounter for immunization Z23 [facility] [address] [place] [id number] [address] [place] [address] Aug, Chronic pain G89.29 [place] [address] [place] [id number] [address] [place] [address] Aug, [place] [address] [place] [id number] [address] [place] [id number] Jul, Chronic pain G89.29 [place] [address] [place] [id number] [place] [address] Jun, Other chronic pain G89.29 [facility] [address] [facility] [id number] [address] [place] [address] Jun, [place] [address] [facility] [id number] [address] [place] [address] Jun, Chronic pain G89.29 [place] [address] [facility] [id number] [address] [place] [address] Jun, Neuropathy G62.9 [place] [address] [facility] [id number] [address] [place] [address] Jun, [facility] ; Type 2 diabetes mellitus with hyperglycemia E11.65 ; Mixed hyperlipidemia E78.2 ; Hypothyroid E03.9 ; Gastroesophageal reflux disease with esophagitis K21.0 ; Essential (primary) hypertension I10 ; Major depressive disorder, recurrent, in full remission F33.42 ; Chronic obstructive pulmonary disease, unspecified COPD type J44.9 ; Neuropathy G62.9 and Encounter for immunization Z23 [place] [address] [facility] [id number] [address] [place] [address] Jun, Irritable bowel syndrome wit h diarrhea K58.0 [place] [address] [facility] [id number] [address] [place] [address] May, Chronic pain G89.29 [place] [address] [facility] [id number] [address] [place] [address] May, Type 2 diabetes mellitus wit h hyperglycemia E11.65 and Neuropathy G62.9 [place] [id number] [facility] [id number] [address] [place] [address] May, Chronic pain G89.29 [place] [address] [facility] [id number] [address] [place] [address] Apr, Poison maryam dermatitis L23.7 [place] [address] [facility] [id number] [address] [place] [address] Apr, Chronic pain G89.29 [place] [address] [place] [id number] [address] [place] [address] March, Type 2 diabetes mellitus wit h hyperglycemia E11.65 [facility] [address] [facility] [id number] [address] [place] [address] March, Chronic pain G89.29 [facility] [address] [facility] [id number] [address] [place] [address] March, [address] [id number] [address] Feb, [facility] [address] [facility] [id number] [address] [place] [address] Feb, Other chronic pain G89.29 an d Chronic pain G89.29 [facility] [address] [facility] [id number] [address] [place] [address] Jan, Mixed hyperlipidemia E78.2 [facility] [address] [facility] [id number] [address] [place] [address] Jan, Chronic pain G89.29 [facility] [address] [facility] [id number] [address] [place] [address] Jan, Type 2 diabetes mellitus wit h hyperglycemia E11.65 ; Mixed hyperlipidemia E78.2 ; 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 ; Acquired hypothyroidism E03.9 and Essential (primary) hypertension I10 [facility] [address] [facility] [id number] [address] [place] [address] Dec, Chronic pain G89.29 [facility] [address] [facility] [id number] [address] [place] [address] Nov, Chronic pain G89.29 [facility] [address] [facility] [id number] [address] [place] [address] Nov, [facility] [address] [facility] [id number] [address] [place] [address] Oct, Chronic pain G89.29 [facility] [address] [facility] [id number] [address] [place] [address] Oct, [place] [address] [facility] [id number] [address] [place] [address] Sep, [place] [address] [place] [id number] [address] [place] [address] Sep, Type 2 diabetes mellitus wit h hyperglycemia E11.65 [place] [address] [place] [id number] [place] [address] Sep, Chronic pain G89.29 [place] [address] [place] [id number] [address] [place] [address] Sep, [place] [address] [place] [id number] [place] [address] Sep, Type 2 diabetes mellitus wit h hyperglycemia E11.65 ; Irritable bowel syndrome with diarrhea K58.0 ; Gastroparesis K31.84 ; 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 and Dermatitis L30.9 [place] [id number] [place] [address] Aug, Chronic pain G89.29 [place] [address] [address] Jul, Chronic pain G89.29 [place] [address] [address] Jun, Type 2 diabetes mellitus wit h hyperglycemia E11.65 ; Neuropathy G62.9 ; Recurrent major depressive disorder, in partial remission F33.41 ; Chronic pain G89.29 and Hypertriglyceridemia E78.1 [place] [address] [place] [id number] [place] [address] Jun, Hypothyroid E03.9 [place] [address] [place] [id number] [address] [place] [address] Jun, Major depressive disorder, r ecurrent episode, moderate F33.1 and Anxiety disorder, unspecified type F41.9 [place] [address] [place] [id number] [place] [address] Jun, [facility] [address] [facility] [id number] [address] [place] [address] Jun, Type 2 diabetes mellitus wit h hyperglycemia E11.65 ; long-term 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 Z79.4 ; Recurrent major depressive disorder, in partial remission F33.41 ; Hypothyroid E03.9 ; Candidal dermatitis B37.2 and Weakness generalized R53.1 [place] [address] [facility] [id number] [address] [place] [address] May, [facility] [address] [place] [id number] [address] [place] [address] May, [place] [address] [place] [id number] [place] [address] May, [place] [address] [place] [id number] [place] [address] May, Generalized abdominal pain R 10.84 and Candidal dermatitis B37.2 [place] [address] [place] [id number] [address] [place] [address] May, [place] [address] [place] [id number] [place] [address] May, [place] [address] [place] [id number] [place] [address] May, Nodular radiologic density R 93.8 ; Weight loss, unintentional R63.4 and Pulmonary emphysema, unspecified emphysema type J43.9 [place] [address] [place] [id number] [place] [address] May, Chronic pain G89.29 [place] [address] [place] [id number] [place] [address] May, Syncope and collapse R55 ; C hronic fatigue R53.[address] lung screening R91.8 [place] [address] [place] [id number] [place] [address] May, [facility] [address] [facility] [id number] [address] [place] [address] Apr, Chronic fatigue R53.82 ; Abn ormal chest CT R93.8 ; Elevated erythrocyte sedimentation rate R70.0 ; Hypothyroid E03.9 and Recurrent major depressive disorder, in partial remission F33.41 [facility] [address] [facility] [id number] [address] [place] [address] Apr, Hypothyroid E03.9 [facility] [address] [facility] [id number] [address] [place] [address] Apr, Depression F32.9 [facility] [address] [facility] [id number] [address] [place] [address] Apr, [facility] [address] [facility] [id number] [address] [place] [address] March, [facility] [address] [facility] [id number] [address] [place] [address] March, Hypothyroid E03.9 [facility] [address] [facility] [id number] [address] [place] [address] March, Diabetes mellitus E11.9 and Hypothyroid E03.9 [facility] [address] [facility] [id number] [address] [place] [address] March, Diabetes mellitus E11.9 [facility] [address] [facility] [id number] [address] [place] [address] March, Hypothyroid E03.9 and Elevat ed liver enzymes R74.8 [facility] [address] [facility] [id number] [address] [place] [address] March, Type 2 diabetes mellitus wit h hyperglycemia E11.65 ; long-term 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 Z79.4 ; Pulmonary emphysema, unspecified emphysema type J43.9 ; Hypothyroid E03.9 ; Neuropathy G62.9 ; Mixed hyperlipidemia E78.2 ; Chronic pain G89.29 ; Gastroesophageal reflux disease with esophagitis K21.0 ; Irritable bowel syndrome with diarrhea K58.0 ; Overactive bladder N32.81 and Recurrent major depressive disorder, in partial remission F33.41 [place] [address] [place] [id number] [place] [address] Feb, Chronic pain G89.29 [place] [address] [place] [id number] [address] [place] [address] Feb, Type 2 diabetes mellitus wit h hyperglycemia E11.65 and Skin lesion of scalp L98.9 [place] [address] [place] [id number] [place] [address] Feb, [place] [address] [place] [id number] [place] [address] Jan, Type 2 diabetes mellitus wit h hyperglycemia E11.65 ; long-term 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 Z79.4 ; Essential (primary) hypertension I10 ; Pulmonary emphysema, unspecified emphysema type J43.9 ; Chronic pain G89.29 ; Controlled substance agreement signed Z79.899 ; Hypothyroid E03.9 ; Neuropathy G62.9 ; Gastroesophageal reflux disease with esophagitis K21.0 ; Overactive bladder N32.81 ; Depression F32.9 and Irritable bowel syndrome with diarrhea K58.0 [place] [address] [place] [id number] [address] [place] [address] Jan, [place] [address] [place] [id number] [place] [address] Jan, Controlled substance agreeme nt signed Z79.899 [place] [address] [place] [id number] [address] [place] [address] Dec, Type 2 diabetes mellitus wit h hyperglycemia E11.65 ; Controlled substance agreement signed Z79.899 ; long-term 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 Z79.4 ; Essential (primary) hypertension I10 ; Hypothyroid E03.9 ; Neuropathy G62.9 ; Depression F32.9 ; Mixed hyperlipidemia E78.2 ; Irritable bowel syndrome with diarrhea K58.0 ; Gastroesophageal reflux disease with esophagitis K21.0 ; Thrombocytosis D47.3 ; Current non-adherence to medical treatment Z91.19 and Overweight (BMI 25.0-29.9) E66.3 [facility] [address] [facility] [id number] [address] [place] [address] Dec, Controlled substance agreeme nt signed Z79.899 [facility] [address] [facility] [id number] [address] [place] [address] Nov, Type 2 diabetes mellitus wit h hyperglycemia E11.65 and Current non- adherence to medical treatment Z91.19 [facility] [address] [facility] [id number] [address] [place] [address] Nov, [facility] [address] [place] [id number] [address] [place] [address] Nov, Chronic pain G89.29 [place] [address] [place] [id number] [address] [place] [address] Nov, [place] [address] [place] [id number] [address] [place] [address] Nov, Hypothyroid E03.9 [facility] [address] [facility] [id number] [address] [place] [address] Nov, Hypothyroid E03.9 [place] [address] [place] [id number] [place] [address] Nov, Pulmonary emphysema, unspeci fied emphysema type J43.9 and Irritable bowel syndrome with diarrhea K58.0 [place] [address] [place] [id number] [place] [address] Oct, [facility] [address] [place] [id number] [address] [place] [address] Oct, [place] [id number] [place] [address] Oct, [facility] [address] [place] [id number] [address] [place] [address] Oct, [place] [address] [place] [id number] [place] [address] Oct, Chronic pain G89.29 [place] [id number] [address] Oct, Diabetes mellitus E11.9 ; De pression F32.9 ; Mixed hyperlipidemia E78.2 ; Hypotension, unspecified hypotension type I95.9 ; Pulmonary emphysema, unspecified emphysema type J43.9 and Weight loss, unintentional R63.4 [place] [address] [address] Oct, Chronic pain G89.29 [place] [address] [address] Sep, Chronic pain G89.29 [place] [address] [address] Sep, Hypothyroid E03.9 and Diabet es mellitus E11.9 [place] [address] [address] Aug, Type 2 diabetes mellitus wit h hyperglycemia E11.65 ; long-term 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 Z79.4 ; Essential (primary) hypertension I10 ; Hypothyroid E03.9 ; Neuropathy G62.9 ; Chronic pain G89.29 ; Mixed hy perlipidemia E78.2 and Encounter for immunization Z23 [place] [address] [address] Aug, Chronic pain G89.29 [place] [address] [address] Aug, Overactive bladder N32.81 ; Diabetes mellitus E11.9 and Chronic pain G89.29 [place] [address] [address] Jul, [place] [address] [address] Jun, [place] [address] [address] Jun, [place] [address] [facility] [id number] [address] [place] [address] Jun, Hypothyroid E03.9 [facility] [address] [facility] [id number] [address] [place] [address] Jun, Diabetes mellitus E11.9 ; Hy pothyroid E03.9 ; Neuropathy G62.9 ; Chronic pain G89.29 and Neck mass R22.1 [facility] [address] [id number] [address] [place] [address] Apr, [facility] [address] [facility] [id number] [address] [place] [address] Apr, Acute cystitis without hemat uria N30.00 [facility] [address] [facility] [id number] [address] [place] [address] March, [facility] [address] [facility] [id number] [address] [place] [address] March, [facility] [address] [facility] [id number] [address] [place] [address] March, Near syncope R55 [facility] [address] [facility] [id number] [address] [place] [address] Feb, [facility] [address] [facility] [id number] [address] [place] [address] Feb, Chronic pain G89.29 [facility] [address] [facility] [id number] [address] [place] [address] Feb, [facility] [address] [facility] [id number] [address] [place] [address] Feb, [facility] [address] [facility] [id number] [address] [place] [address] Jan, Chronic pain G89.29 [facility] [address] [facility] [id number] [address] [place] [address] Jan, [facility] [address] [facility] [id number] [address] [place] [address] 16 Jan, 2017 [facility] [address] [place] [id number] [address] [place] [address] 14 Jan, 2017 Diabetes mellitus E11.9 ; Hy pothyroid E03.9 ; GERD (gastroesophageal reflux disease) K21.9 ; Insomnia G47.00 ; Functional 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 ; Neuropathy G62.9 ; Depression F32.9 ; Chronic pain G89.29 ; Irritable bowel syndrome with diarrhea K58.0 ; Overactive bladder N32.81 ; Mixed hyperlipidemia E78.2 and Bronchitis J40 [facility] [address] [facility] [id number] [address] [place] [address] Dec, [facility] [address] [place] [id number] [address] [place] [address] 24 Dec, 2016 [facility] [address] [place] [id number] [address] [place] [address] Dec, [facility] [address] [place] [id number] [address] [place] [address] Dec, [facility] [address] [facility] [id number] [address] [place] [address] Dec, Chronic pain G89.29 [facility] [address] [facility] [id number] [address] [place] [address] 23 Dec, 2016 [facility] [address] [place] [id number] [address] [place] [address] 20 Dec, 2016 [facility] [address] [place] [id number] [address] [place] [address] 17 Dec, 2016 Type 2 diabetes mellitus wit h foot ulcer E11.621 [facility] [address] [place] [id number] [address] [place] [address] 17 Dec, 2016 Type 2 diabetes mellitus wit h foot ulcer E11.621 [facility] [address] [place] [id number] [address] [place] [address] 14 Dec, 2016 HTN (hypertension) I10 ; Dep ression F32.9 ; Type 2 diabetes mellitus with foot ulcer E11.621 ; Functional 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 ; Irritable bowel syndrome with diarrhea K58.0 ; Chronic pain G89.29 ; Insomnia G47.00 ; Overactive bladder N32.81 ; Mixed hyperlipidemia E78.2 ; Gastroesophageal reflux disease with esophagitis K21.0 and Acquired hypothyroidism E03.9 [place] [address] [place] [id number] [place] [address] Nov, [place] [address] [place] [id number] [place] [address] Oct, [place] [address] [place] [id number] [place] [address] Oct, [place] [address] [place] [id number] [place] [address] Oct, [place] [address] [place] [id number] [place] [address] Sep, Functional 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 ; HTN (hypertension) I10 ; Diabetes mellitus E11.9 ; Depression F32.9 ; Overactive bladder N32.81 ; Mixed hyperlipidemia E78.2 ; Gastroesophageal reflux disease without esophagitis K21.9 ; Chronic pain G89.29 ; Insomnia G47.00 and Acquired hypothyroidism E03.9 [place] [address] [place] [id number] [place] [address] Sep, [place] [address] [place] [id number] [place] [address] Aug, Encounter for immunization Z 23 [place] [address] [place] [id number] [place] [address] Aug, [place] [address] [place] [id number] [place] [phone] Jul, [place] [address] [place] [id number] [place] [id number] Jun, Type 2 diabetes mellitus wit hout complications E11.9 ; HTN (hypertension) I10 ; Hypothyroid E03.9 ; Neuropathy G62.9 ; Depression F32.9 ; Chronic pain G89.29 ; GERD (gastroesophageal reflux disease) K21.9 ; Insomnia G47.00 ; Overactive bladder N32.81 ; Mixed hyperlipidemia E78.2 ; Diarrhea of infectious origin A09 and Environmental allergies Z91.09 [place] [id number] [phone] Apr, [place] [address] [id number] March, Hypothyroidism, unspecified E03.9 and Mixed hyperlipidemia E78.2 [place] [address] [id number] March, Diabetes mellitus E11.9 ; HT N (hypertension) I10 ; Hypothyroid E03.9 ; Depression F32.9 ; Overactive bladder N32.81 ; Other chronic pain G89.29 ; Lumbago with sciatica, unspecified side M54.40 ; Environmental allergies Z91.09 and Gastroesophageal reflux disease, esophagitis presence not specified K21.9 [place] [address] [id number] March, [place] [address] [address] Jan, HTN (hypertension) I10 ; Hyp othyroid E03.9 ; Neuropathy G62.9 ; Diabetes mellitus E11.9 ; Chronic pain G89.29 ; GERD (gastroesophageal reflux disease) K21.9 ; Overactive bladder N32.81 and Depression F32.9 [place] [address] [address] 12 Dec, 2015 Ear pain, left H92.02 ; HTN (hypertension) I10 ; Hypothyroid E03.9 ; Neuropathy G62.9 ; Diabetes mellitus E11.9 ; Depression F32.9 ; GERD (gastroesophageal reflux disease) K21.9 ; Insomnia G47.00 and Overactive bladder N32.81 [place] [address] [address] Nov, Overactive bladder N32.81 an d Chronic pain G89.29 [place] [address] [address] Nov, Kidney failure N19 [place] [address] [address] Nov, [place] [address] [address] Nov, [place] [address] [address] Nov, Diabetes mellitus E11.9 ; De pression F32.9 ; Chronic pain G89.29 ; GERD (gastroesophageal reflux disease) K21.9 ; Insomnia G47.00 ; HTN (hypertension) I10 ; Hypothyroid E03.9 ; COPD (chronic obstructive pulmonary disease) J44.9 ; Bladder incontinence R32 and Incontinence R32 [place] [address] [address] Sep, Type 2 diabetes mellitus wit h foot ulcer E11.621 and Chromosomal abnormality, 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 [place] [address] [address] Sep, [place] [address] [address] Aug, [place] [address] [address] Aug, [place] [address] [address] Aug, HTN (hypertension) I10 ; Enc ounter for immunization Z23 ; Hypothyroid E03.9 ; Neuropathy G62.9 ; Diabetes mellitus E11.9 ; Depression F32.9 ; Chronic pain G89.29 ; GERD (gastroesophageal reflux disease) K21.9 ; Insomnia G47.00 and COPD (chronic obstructive pulmonary disease) J44.9 [place] [address] [place] [address] Jun, [facility] [address] [address] Jun, [facility] [address] [address] May, Essential hypertension, ivis gn 401.1 ; Unspecified hypothyroidism 244.9 ; Insomnia, unspecified 780.52 ; Shortness of breath 786.05 ; Depression 311 ; COPD (chronic obstructive pulmonary disease) 496 ; GERD (gastroesophageal reflux disease) 530.81 and Diabetes 1.5, 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 [facility] [address] [address] May, [facility] [address] [address] May, [facility] [address] [address] May, Shortness of breath 786.05 ; Essential hypertension, benign 401.1 ; Diabetes mellitus 250.00 ; Hyperlipidemia 272.4 ; Hypothyroid 244.9 ; Insomnia 780.52 and Cough 786.2 [facility] [address] [address] Apr, [facility] [address] [address] March, Shortness of breath 786.05 ; Nausea with vomiting 787.01 ; Essential hypertension, benign 401.1 ; Diabetes mellitus 250.00 ; Hyperlipidemia 272.4 and Hypothyroid 244.9 [facility] [address] [address] Feb, [facility] [address] [address] Feb, [facility] [address] [address] Jan, [facility] [address] [place] [address] 24 Jan, 2015 [facility] [address] [id number] [address] [place] [address], [place] [address] Jan, [facility] [address] [id number] [address] [place] [address], [place] [address] Jan, [facility] [address] [id number] [address] [place] [address], [place] [address] Jan, 2014 [facility] [address] [id number] [address] [place] [address], [place] [address] 05 Jan, 2015 [facility] [address] [id number] [address] [place] [address], [place] [address] Jan, [facility] [address] [id number] [address] [place] [address], [place] [address] Jan, [facility] [address] [id number] [address] [place] [address], [place] [address] Jan, [facility] [address] [id number] [address] [place] [address], [place] [address] Jan, [facility] [address] [id number] [address] [place] [address], [place] [address] Dec, 2014 [facility] [address] [id number] [address] [place] [address], [place] [address] Dec, 2014 [facility] [address] [id number] [address] [place] [address], [place] [address] Dec, 2014 [facility] [address] [id number] [address] [place] [address], [place] [address] Dec, 2014 [facility] [address] [id number] [address] [place] [address], [place] [address] Dec, 2014 [facility] [address] [id number] [address] [place] [address], [place] [address] Dec, 2014 [facility] [address] [id number] [address] [place] [address], [place] [address] Dec, [facility] [address] [id number] [facility] [place] [address] Dec, 2014 [facility] [address] [id number] [address] [place] [address], [place] [address] Dec, 2014 [facility] [address] [id number] [address] [place] [address], [place] [address] Dec, 2014 [facility] [address] [id number] [address] [place] [address], [place] [address] Oct, [facility] [address] [id number] [address] [place] [address], [place] [address] Oct, [facility] [address] [id number] [address] [place] [address], [place] [address] Oct, [facility] [address] [id number] [address] [place] [address], [place] [address] Oct, [facility] [address] [id number] [address] [place] [address], [place] [address] Oct, [facility] [address] [id number] [address] [place] [address], [place] [address] Oct, [facility] [address] [id number] [address] [place] [address], [place] [address] Oct, [facility] [address] [id number] [address] [place] [address], [place] [address] Oct, [facility] [address] [id number] [address] [place] [address], [place] [address] Oct, [facility] [address] [id number] [address] [place] [address], [place] [address] Oct, [facility] [address] [id number] [address] [place] [address], [place] [address] Oct, [facility] [address] [id number] [address] [place] [address], [place] [address] Oct, [facility] [address] [id number] [address] [place] [address], [place] [address] Oct, [facility] [address] [id number] [address] [place] [address], [place] [address] Oct, [facility] [address] [id number] [address] [place] [address], [place] [address] Sep, [facility] [address] [id number] [address] [place] [address], [place] [address] Sep, [facility] [address] [id number] [address] [place] [address], [place] [address] Sep, [facility] [address] [id number] [address] [place] [address], [place] [address] Sep, [facility] [address] [id number] [address] [place] [address], [place] [address] Sep, [facility] [address] [id number] [address] [place] [address], [place] [address] Sep, [facility] [address] [id number] [address] [place] [address], [place] [address] Sep, [facility] [address] [id number] [address] [place] [address], [place] [address] Sep, [facility] [address] [id number] [address] [place] [address], [place] [address] Sep, [facility] [address] [id number] [address] [place] [address], [place] [address] Aug, [facility] [address] [id number] [address] [place] [address], [place] [address] Aug, [facility] [address] [id number] [address] [place] [address], [place] [address] Aug, [facility] [address] [id number] [address] [place] [address], [place] [address] Aug, [facility] [address] [id number] [address] [place] [address], [place] [address] 16 Aug, 2014 [facility] [address] [id number] [address] [place] [address], [place] [address] Aug, [facility] [address] [id number] [address] [place] [address], [place] [address] Aug, [facility] [address] [id number] [address] [place] [address], [place] [address] Aug, [facility] [address] [id number] [address] [place] [address], [place] [address] Aug, [facility] [address] [id number] [address] [place] [address], [place] [address] 29 Jul, 2014 [facility] [address] [id number] [address] [place] [address], [place] [address] 29 Jul, 2014 [facility] [address] [id number] [address] [place] [address], [place] [address] Jul, [facility] [address] [id number] [address] [place] [address], [place] [address] Jul, 2013 [facility] [address] [id number] [address] [place] [address], [place] [address] Jul, [facility] [address] [id number] [address] [place] [address], [place] [address] Jul, [facility] [address] [id number] [address] [place] [address], [place] [address] Jul, [facility] [address] [id number] [address] [place] [address], [place] [address] Jul, 2013 [facility] [address] [id number] [address] [place] [address], [place] [address] Jul, [facility] [address] [id number] [address] [place] [address], [place] [address] Jul, [facility] [address] [id number] [address] [place] [address], [place] [address] Jun, [facility] [address] [id number] [address] [place] [address], [place] [address] Jun, [facility] [address] [id number] [facility] [place] [address] Jun, [facility] [address] [id number] [address] [place] [address], [place] [address] Jun, [facility] [address] [id number] [facility] [place] [address] Jun, [facility] [address] [id number] [address] [place] [address], [place] [address] Jun, [facility] [address] [id number] [address] [place] [address], [place] [address] Jun, [facility] [address] [id number] [address] [place] [address], [place] [address] Jun, [facility] [address] [id number] [address] [place] [address], [place] [address] Jun, [facility] [address] [id number] [address] [place] [address], [place] [address] Jun, [facility] [address] [id number] [address] [place] [address], [place] [address] Jun, [facility] [address] [id number] [address] [place] [address], [place] [address] Jun, [facility] [address] [id number] [address] [place] [address], [place] [address] May, [facility] [address] [id number] [address] [place] [address], [place] [address] May, [facility] [address] [id number] [address] [place] [address], [place] [address] May, [facility] [address] [id number] [address] [place] [address], [place] [address] May, [facility] [address] [id number] [address] [place] [address], [place] [address] May, [facility] [address] [id number] [facility] [place] [address] May, [facility] [address] [id number] [address] [place] [address], [place] [address] March, [facility] [address] [id number] [address] [place] [address], [place] [address] March, [facility] [address] [id number] [address] [place] [address], [place] [address] March, [facility] [address] [id number] [address] [place] [address], [place] [address] March, [facility] [address] [id number] [address] [place] [address], [place] [address] March, [facility] [address] [id number] [address] [place] [address], [place] [address] March, [facility] [address] [id number] [address] [place] [address], [place] [address] Feb, [facility] [address] [id number] [address] [place] [address], [place] [address] Feb, [facility] [address] [id number] [address] [place] [address], [place] [address] Feb, [facility] [address] [id number] [address] [place] [address], [place] [address] Feb, [facility] [address] [id number] [address] [place] [address], [place] [address] Jan, [facility] [address] [id number] [address] [place] [address], [place] [address] Jan, [facility] [address] [id number] [address] [place] [address], [place] [address] Jan, [facility] [address] [id number] [address] [place] [address], [place] [address] Jan, [facility] [address] [id number] [address] [place] [address], [place] [address] Jan, [facility] [address] [id number] [address] [place] [address], [place] [address] Jan, [facility] [address] [id number] [address] [place] [address], [place] [address] Jan, [facility] [address] [id number] [address] [place] [address], [place] [address] Jan, [facility] [address] [id number] [address] [place] [address], [place] [address] Jan, [facility] [address] [id number] [address] [place] [address], [place] [address] Jan, [facility] [address] [id number] [address] [place] [address], [place] [address] Jan, [facility] [address] [id number] [address] [place] [address], [place] [address] Jan, [facility] [address] [id number] [address] [place] [address], [place] [address] Dec, [facility] [address] [id number] [address] [place] [address], [place] [address] Dec, [facility] [address] [id number] [address] [place] [address], [place] [address] Dec, [facility] [address] [id number] [address] [place] [address], [place] [address] Dec, [facility] [address] [id number] [address] [place] [address], [place] [address] Dec, [facility] [address] [id number] [address] [place] [address], [place] [address] Dec, [facility] [address] [id number] [address] [place] [address], [place] [address] Nov, [facility] [address] [id number] [address] [place] [address], [place] [address] Nov, [facility] [address] [id number] [address] [place] [address], [place] [address] 13 Oct, 2013 [facility] [address] [id number] [address] [place] [address], [place] [address] Oct, [facility] [address] [id number] [address] [place] [address], [place] [address] Oct, [facility] [address] [id number] [address] [place] [address], [place] [address] Oct, [facility] [address] [id number] [address] [place] [address], [place] [address] Oct, [facility] [address] [id number] [address] [place] [address], [place] [address] Oct, [facility] [address] [id number] [address] [place] [address], [place] [address] Sep, [facility] [address] [id number] [address] [place] [address], [place] [address] Sep, [facility] [address] [id number] [address] [place] [address], [place] [address] Sep, [facility] [address] [id number] [address] [place] [address], [place] [address] Sep, [facility] [address] [id number] [address] [place] [address], [place] [address] Aug, [facility] [address] [id number] [address] [place] [address], [place] [address] Aug, [facility] [address] [id number] [address] [place] [address], [place] [address] 08 Aug, 2013 [facility] [address] [id number] [address] [place] [address], [place] [address] 17 Jul, 2013 [facility] [address] [id number] [address] [place] [address], [place] [address] 14 Jul, 2013 [facility] [address] [id number] [address] [place] [address], [place] [address] Jul, [facility] [address] [id number] [address] [place] [address], [place] [address] Jun, [facility] [address] [id number] [address] [place] [address], [place] [address] Jun, [facility] [address] [id number] [address] [place] [address], [place] [address] Jun, [facility] [address] [id number] [address] [place] [address], [place] [address] Apr, [facility] [address] [id number] [address] [place] [address], [place] [address] Apr, [facility] [address] [id number] [address] [place] [address], [place] [address] March, [facility] [address] [id number] [address] [place] [address], [place] [address] March, [facility] [address] [id number] [address] [place] [address], [place] [address] March, [facility] [address] [id number] [address] [place] [address], [place] [address] March, [facility] [address] [id number] [address] [place] [address], [place] [address] Feb, [facility] [address] [id number] [address] [place] [address], [place] [address] Jan, [facility] [address] [id number] [address] [place] [address], [place] [address] Dec, [facility] [address] [id number] [address] [place] [address], [place] [address] Dec, [facility] [address] [id number] [address] [place] [address], [place] [address] Dec, [facility] [address] [id number] [address] [place] [address], [place] [address] Nov, [facility] [address] [id number] [address] [place] [address], [place] [address] 13 Oct, 2012 [facility] [address] [id number] [address] [place] [address], [place] [address] 13 Oct, 2012 [facility] [address] [id number] [address] [place] [address], [place] [address] Sep, [facility] [address] [id number] [address] [place] [address], [place] [address] Sep, [facility] [address] [id number] [address] [place] [address], [place] [address] Sep, [facility] [address] [id number] [address] [place] [address], [place] [address] Sep, [facility] [address] [id number] [address] [place] [address], [place] [address] Sep, [facility] [address] [id number] [address] [place] [address], [place] [address] Sep, [facility] [address] [id number] [address] [place] [address], [place] [address] Sep, [facility] [address] [id number] [address] [place] [address], [place] [address] Aug, [facility] [address] [id number] [address] [place] [address], [place] [address] 16 Aug, 2012 [facility] [address] [id number] [address] [place] [address], [place] [address] Aug, [facility] [address] [id number] [address] [place] [address], [place] [address] Aug, [facility] [address] [id number] [address] [place] [address], [place] [address] Aug, [facility] [address] [id number] [address] [place] [address], [place] [address] 08 Aug, 2012 [facility] [address] [id number] [address] [place] [address], [place] [address] 07 Aug, 2012 [facility] [address] [id number] [address] [place] [address], [place] [address] Aug, [facility] [address] [id number] [address] [place] [address], [place] [address] Jul, [facility] [address] [id number] [address] [place] [address], [place] [address] Jul, [facility] [address] [id number] [address] [place] [address], [place] [address] Jun, [facility] [address] [id number] [address] [place] [address], [place] [address] May, [facility] [address] [id number] [address] [place] [address], [place] [address] Apr, [facility] [address] [id number] [address] [place] [address], [place] [address] Apr, [facility] [address] [id number] [address] [place] [address], [place] [address] Apr, [facility] [address] [id number] [address] [place] [address], [place] [address] March, [facility] [address] [id number] [address] [place] [address], [place] [address] March, [facility] [address] [id number] [address] [place] [address], [place] [address] March, [facility] [address] [id number] [address] [place] [address], [place] [address] March, [facility] [address] [id number] [address] [place] [address], [place] [address] March, [facility] [address] [id number] [address] [place] [address], [place] [address] March, [facility] [address] [id number] [address] [place] [address], [place] [address] March, [facility] [address] [id number] [address] [place] [address], [place] [address] Jan, [facility] [address] [id number] [address] [place] [address], [place] [address] Jan, [facility] [address] [id number] [address] [place] [address], [place] [address] 20 Jan, 2012 [facility] [address] [id number] [address] [place] [address], [place] [address] 13 Jan, 2012 [facility] [address] [id number] [address] [place] [address], [place] [address] Jan, [facility] [address] [id number] [address] [place] [address], [place] [address] 08 Dec, 2011 [facility] [address] [id number] [address] [place] [address], [place] [address] 06 Dec, 2011 [facility] [address] [id number] [address] [place] [address], [place] [address] Nov, [facility] [address] [id number] [address] [place] [address], [place] [address] Nov, [facility] [address] [id number] [address] [place] [address], [place] [address] Nov, [facility] [address] [id number] [address] [place] [address], [place] [address] Nov, [facility] [address] [id number] [address] [place] [address], [place] [address] Oct, [facility] [address] [id number] [address] [place] [address], [place] [address] Oct, [facility] [address] [id number] [address] [place] [address], [place] [address] 14 Sep, 2011 [facility] [address] [id number] [address] [place] [address], [place] [address] 10 Sep, 2011 [facility] [address] [id number] [address] [place] [address], [place] [address] 10 Sep, 2011 [facility] [address] [id number] [address] [place] [address], [place] [address] 11 May, 2011 [facility] [address] [id number] [address] [place] [address], [place] [id number] Nov, [facility] [address] [id number] [address] [place] [address], [place] [id number] 29 Oct, 2010 [facility] [address] [id number] [address] [place] [address], [place] [id number] 14 Oct, 2010 [facility] [address] [id number] [address] [place] [address], [place] [id number] 08 Oct, 2010 [facility] [address] [id number] [address] [place] [address], [place] [id number] 15 Sep, 2010 [facility] [address] [id number] [address] [place] [address], [place] [id number] Sep, [facility] [address] [id number] [address] [place] [address], [place] [address] Aug, [facility] [address] [id number] [address] [place] [address], [place] [address] March, [facility] [address] [id number] [address] [place] [address], [place] [address] Oct, [facility] [address] [id number] [address] [place] [address], [place] [address] 17 Oct, 2009 [facility] [address] [id number] [address] [place] [address], [place] [address] Oct, [facility] [address] [id number] [address] [place] [address], [place] [address] Oct, [facility] [address] [id number] [address] [place] [address], [place] [address] Sep, [facility] [address] [id number] [address] [place] [address], [place] [address] Sep, [facility] [address] [id number] [address] [place] [address], [place] [address] Sep, [facility] [address] [facility] [id number] [address] [place] [id number] Aug, [facility] [address] [facility] [id number] [address] [place] [phone] Aug, [facility] [address] [facility] [id number] [address] [place] [phone] Aug, [facility] [address] [facility] [id number] [address] [place] [id number] Jan, IMMUNIZATIONS No Known Immunizations SOCIAL HISTORY [...]
--- OUTSIDE RECORDS SUMMARY | 2020-06-13 16:00 | XMS REPORT ---
Author Author Jah Durant Doctor Organization [facility] Address Unknown Phone Unavailable Care Team Providers Care Safety Aide Name Role Phone Migration, Doctor Unavailable Unavailable PROBLEMS Type Condition ICD9-CM Code [id number] Code Onset Dates Condition S tatus SNOMED Code Problem Chronic pain G89.29 Active 9712162 1 Problem Hypothyroid E03.9 Active 77747639 Problem Neuropathy G62.9 Active 822007218 Problem Mixed hyperlipidemia E78.2 Active 358205694 Problem Overactive bladder N32.81 Active 2 83023067 Problem detention 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 Z79.4 Active 904349949 Problem Type 2 diabetes mellitus with hyperglycemia E11.65 Active 42794748 Problem Essential (primary) hypertension I10 Active 70009216 Problem Major depressive disorder, recurrent, in full remission F33.42 Active 31386427 Problem Irritable bowel syndrome with diarrhea K58.0 Active 560042945 Problem detention (current) use of insulin Z79.4 Active 486877451 Problem Gastroesophageal reflux disease with esophagitis K 21.0 Active 989689596 Problem Anxiety disorder, unspecified type F41.9 Active 258228259 Problem Gastroparesis K31.84 Active 120528 006 Problem 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 Active 515669538 Problem Chronic obstructive pulmonary disease, unspecified COPD ty pe J44.9 Active 59169683 ALLERGIES No Information ENCOUNTERS Encounter Location Date Diagnosis [place] [address] [address] 13 Jan, 2020 Type 2 diabetes mellitus with hyperglyce regina E11.65 ; detention (current) use of insulin Z79.4 and Hyperkalemia E87.5 [place] [address] [address] 10 Jan, 2020 Type 2 diabetes mellitus with diabetic a utonomic (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 ; Hypothyroid E03.9 ; Dyshydrosis L30.1 and Irritable bowel syndrome with diarrhea K58.0 [place] [address] [address] 05 Jan, 2020 Chronic pain G89.29 [facility] [address] [address] 10 Dec, 2019 Chronic pain G89.29 [facility] [address] [address] 07 Dec, 2019 [facility] [address] [address] 07 Dec, 2019 [facility] [address] [address] Nov, Chronic pain G89.29 [place] [address] [address] Oct, Chronic pain G89.29 [place] [address] [address] Sep, Chronic pain G89.29 [place] [address] [address] Sep, Type 2 diabetes mellitus with diabetic a utonomic (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 ; Irritable bowel syndrome with diarrhea K58.0 ; Essential (primary) hypertension I10 and Encounter for immunization Z23 [place] [address] [address] Aug, Chronic pain G89.29 [place] [address] [address] Aug, [place] [address] [address] Jul, Chronic pain G89.29 [place] [address] [address] Jun, Other chronic pain G89.29 [place] [address] [address] Jun, [facility] [address] [address] Jun, Chronic pain G89.29 [place] [address] [address] Jun, Neuropathy G62.9 [place] [address] [address] Jun, Encounter for Medicare annual wellness e xam Z00.00 ; Type 2 diabetes mellitus with hyperglycemia E11.65 ; Mixed hyperlipidemia E78.2 ; Hypothyroid E03.9 ; Gastroesophageal reflux disease with esophagitis K21.0 ; Essential (primary) hypertension I10 ; Major depressive disorder, recurrent, in full remission F33.42 ; Chronic obstructive pulmonary disease, unspecified COPD type J44.9 ; Neuropathy G62.9 and Encounter for immunization Z23 [place] [address] [address] Jun, Irritable bowel syndrome with diarrhea K 58.0 [place] [address] [address] May, Chronic pain G89.29 [place] [address] [address] May, Type 2 diabetes mellitus with hyperglyce regina E11.65 and Neuropathy G62.9 [place] [address] [address] May, Chronic pain G89.29 [place] [address] [address] Apr, Poison maryam dermatitis L23.7 [place] [address] [address] Apr, Chronic pain G89.29 [place] [address] [address] March, Type 2 diabetes mellitus with hyperglyce regina E11.65 [place] [address] [address] March, Chronic pain G89.29 [place] [address] [place] [address] March, [facility] [place] [address] [place] [address] Feb, [facility] [address] [place] [id number] [place] [address] Feb, Other chronic pain G89.29 and Chronic pa in G89.29 [facility] [address] [place] [id number] [place] [address] Jan, Mixed hyperlipidemia E78.2 [facility] [address] [place] [id number] [place] [address] Jan, Chronic pain G89.29 [place] [address] [place] [id number] [place] [address] Jan, Type 2 diabetes mellitus with hyperglyce regina E11.65 ; Mixed hyperlipidemia E78.2 ; 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 designer 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 Z79.4 ; Acquired hypothyroidism E03.9 and Essential (primary) hypertension I10 [place] [address] [place] [id number] [place] [address] Dec, Chronic pain G89.29 [facility] [address] [place] [id number] [place] [address] Nov, Chronic pain G89.29 [place] [address] [place] [id number] [place] [address] Nov, [facility] [address] [place] [id number] [place] [address] Oct, Chronic pain G89.29 [facility] [address] [place] [id number] [place] [address] Oct, [facility] [address] [address] Sep, [facility] [address] [place] [id number] [place] [address] Sep, Type 2 diabetes mellitus with hyperglyce regina E11.65 [facility] [address] [address] Sep, Chronic pain G89.29 [place] [address] [address] Sep, [place] [address] [address] Sep, Type 2 diabetes mellitus with hyperglyce regina E11.65 ; Irritable bowel syndrome with diarrhea K58.0 ; Gastroparesis K31.84 ; 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 and Dermatitis L30.9 [place] [address] [address] Aug, Chronic pain G89.29 [place] [address] [address] Jul, Chronic pain G89.29 [place] [address] [address] Jun, Type 2 diabetes mellitus with hyperglyce regina E11.65 ; Neuropathy G62.9 ; Recurrent major depressive disorder, in partial remission F33.41 ; Chronic pain G89.29 and Hypertriglyceridemia E78.[address] [address] Jun, Hypothyroid E03.[address] [address] Jun, Major depressive disorder, recurrent epi sode, moderate F33.1 and Anxiety disorder, unspecified type F41.9 [place] [address] [address] Jun, [address] [address] Jun, Type 2 diabetes mellitus with hyperglyce regina E11.65 ; detention 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 Z79.4 ; Recurrent major depressive disorder, in partial remission F33.41 ; Hypothyroid E03.9 ; Candidal dermatitis B37.2 and Weakness generalized R53.1 [place] [address] [address] May, [facility] [address] [address] May, [facility] [address] [address] May, [facility] [address] [address] May, Generalized abdominal pain R10.84 and Ca ndidal dermatitis B37.2 [place] [address] [address] May, [place] [address] [address] May, [place] [address] [address] May, Nodular radiologic density R93.8 ; Weigh t loss, unintentional R63.4 and Pulmonary emphysema, unspecified emphysema type J43.9 [place] [address] [address] May, Chronic pain G89.29 [place] [address] [address] May, Syncope and collapse R55 ; Chronic fatig ue R53.[address] lung screening R91.8 [place] [address] [address] May, [place] [address] [address] Apr, Chronic fatigue R53.82 ; Abnormal chest CT R93.8 ; Elevated erythrocyte sedimentation rate R70.0 ; Hypothyroid E03.9 and Recurrent major depressive disorder, in partial remission F33.41 [place] [address] [address] Apr, Hypothyroid E03.9 [place] [address] [address] Apr, Depression F32.9 [place] [address] [address] Apr, [place] [address] [address] March, [place] [address] [address] March, Hypothyroid E03.9 [place] [address] [address] March, Diabetes mellitus E11.9 and Hypothyroid E03.9 [place] [address] [address] March, Diabetes mellitus E11.9 [place] [address] [address] March, Hypothyroid E03.9 and Elevated liver enz ymes R74.8 [place] [address] [address] March, Type 2 diabetes mellitus with hyperglyce regina E11.65 ; 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 designer 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 Z79.4 ; Pulmonary emphysema, unspecified emphysema type J43.9 ; Hypothyroid E03.9 ; Neuropathy G62.9 ; Mixed hyperlipidemia E78.2 ; Chronic pain G89.29 ; Gastroesophageal reflux disease with esophagitis K21.0 ; Irritable bowel syndrome with diarrhea K58.0 ; Overactive bladder N32.81 and Recurrent major depressive disorder, in partial remission F33.41 [place] [address] [address] Feb, Chronic pain G89.29 [place] [address] [address] Feb, Type 2 diabetes mellitus with hyperglyce regina E11.65 and Skin lesion of scalp L98.9 [place] [address] [address] Feb, [place] [address] [address] Jan, Type 2 diabetes mellitus with hyperglyce regina E11.65 ; 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 designer 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 Z79.4 ; Essential (primary) hypertension I10 ; Pulmonary emphysema, unspecified emphysema type J43.9 ; Chronic pain G89.29 ; Controlled substance agreement signed Z79.899 ; Hypothyroid E03.9 ; Neuropathy G62.9 ; Gastroesophageal reflux disease with esophagitis K21.0 ; Overactive bladder N32.81 ; Depression F32.9 and Irritable bowel syndrome with diarrhea K58.0 [place] [address] [address] Jan, [place] [address] [address] Jan, Controlled substance agreement signed Z7 9.899 [place] [address] [address] Dec, Type 2 diabetes mellitus with hyperglyce regina E11.65 ; Controlled substance agreement signed Z79.899 ; 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 designer 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 Z79.4 ; Essential (primary) hypertension I10 ; Hypothyroid E03.9 ; Neuropathy G62.9 ; Depression F32.9 ; Mixed hyperlipidemia E78.2 ; Irritable bowel syndrome with diarrhea K58.0 ; Gastroesophageal reflux disease with esophagitis K21.0 ; Thrombocytosis D47.3 ; Current non-adherence to medical treatment Z91.19 and Overweight (BMI 25.0-29.9) E66.3 [place] [address] [address] Dec, Controlled substance agreement signed Z7 9.899 [place] [address] [address] Nov, Type 2 diabetes mellitus with hyperglyce regina E11.65 and Current non- adherence to medical treatment Z91.19 [place] [address] [address] Nov, [place] [address] [address] Nov, Chronic pain G89.29 [place] [address] [address] Nov, [facility] [address] [address] Nov, Hypothyroid E03.9 [facility] [address] [address] Nov, Hypothyroid E03.9 [place] [address] [address] Nov, Pulmonary emphysema, unspecified emphyse ma type J43.9 and Irritable bowel syndrome with diarrhea K58.0 [place] [address] [address] Oct, [place] [address] [address] Oct, [place] [address] [address] Oct, [place] [address] [address] Oct, [place] [address] [address] Oct, Chronic pain G89.29 [place] [address] [address] Oct, Diabetes mellitus E11.9 ; Depression F32 .9 ; Mixed hyperlipidemia E78.2 ; Hypotension, unspecified hypotension type I95.9 ; Pulmonary emphysema, unspecified emphysema type J43.9 and Weight loss, unintentional R63.4 [place] [address] [address] Oct, Chronic pain G89.29 [place] [address] [address] Sep, Chronic pain G89.29 [place] [address] [address] Sep, Hypothyroid E03.9 and Diabetes mellitus E11.9 [place] [address] [address] Aug, Type 2 diabetes mellitus with hyperglyce regina E11.65 ; detention 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 Z79.4 ; Essential (primary) hypertension I10 ; Hypothyroid E03.9 ; Neuropathy G62.9 ; Chronic pain G89.29 ; Mixed hyperlipidemia E78.2 and Encounter for immunization Z23 [place] [address] [address] Aug, Chronic pain G89.29 [place] [address] [address] Aug, Overactive bladder N32.81 ; Diabetes alvarez litus E11.9 and Chronic pain G89.29 [place] [address] [address] Jul, [place] [address] [address] Jun, [place] [address] [address] Jun, [place] [address] [address] Jun, Hypothyroid E03.9 [place] [address] [address] Jun, Diabetes mellitus E11.9 ; Hypothyroid E0 3.9 ; Neuropathy G62.9 ; Chronic pain G89.29 and Neck mass R22.1 [place] [address] [address] Apr, [place] [address] [address] Apr, Acute cystitis without hematuria N30.00 [place] [address] [address] March, [place] [address] [address] March, [place] [address] [place] [id number] [place] [address] March, Near syncope R55 [facility] [address] [address] Feb, [facility] [address] [address] Feb, Chronic pain G89.29 [facility] [address] [address] Feb, [facility] [address] [address] Feb, [facility] [address] [address] Jan, Chronic pain G89.29 [facility] [address] [address] Jan, [facility] [address] [address] Jan, [facility] [address] [address] Jan, Diabetes mellitus E11.9 ; Hypothyroid E0 3.9 ; GERD (gastroesophageal reflux disease) K21.9 ; Insomnia G47.00 ; Functional 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 ; Neuropathy G62.9 ; Depression F32.9 ; Chronic pain G89.29 ; Irritable bowel syndrome with diarrhea K58.0 ; Overactive bladder N32.81 ; Mixed hyperlipidemia E78.2 and Bronchitis J40 [facility] [address] [place] [id number] [place] [address] Dec, [facility] [address] [address] Dec, [facility] [address] [address] Dec, [facility] [address] [address] Dec, [facility] [address] [address] Dec, Chronic pain G89.29 [place] [address] [address] Dec, [place] [address] [address] Dec, [place] [address] [address] Dec, Type 2 diabetes mellitus with foot ulcer E11.621 [place] [address] [address] 17 Dec, 2016 Type 2 diabetes mellitus with foot ulcer E11.621 [place] [address] [address] 14 Dec, 2016 HTN (hypertension) I10 ; Depression F32. 9 ; Type 2 diabetes mellitus with foot ulcer E11.621 ; Functional 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 ; Irritable bowel syndrome with diarrhea K58.0 ; Chronic pain G89.29 ; Insomnia G47.00 ; Overactive bladder N32.81 ; Mixed hyperlipidemia E78.2 ; Gastroesophageal reflux disease with esophagitis K21.0 and Acquired hypothyroidism E03.9 [place] [address] [address] Nov, [place] [address] [address] Oct, [place] [address] [address] Oct, [place] [address] [address] Oct, [place] [address] [address] Sep, Functional 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 ; HTN (hyperte nsion) I10 ; Diabetes mellitus E11.9 ; Depression F32.9 ; Overactive bladder N32.81 ; Mixed hyperlipidemia E78.2 ; Gastroesophageal reflux disease without esophagitis K21.9 ; Chronic pain G89.29 ; Insomnia G47.00 and Acquired hypothyroidism E03.9 [place] [address] [address] Sep, [place] [address] [address] Aug, Encounter for immunization Z23 [place] [address] [address] Aug, [place] [address] [address] Jul, [place] [address] [address] Jun, Type 2 diabetes mellitus without complic ations E11.9 ; HTN (hypertension) I10 ; Hypothyroid E03.9 ; Neuropathy G62.9 ; Depression F32.9 ; Chronic pain G89.29 ; GERD (gastroesophageal reflux disease) K21.9 ; Insomnia G47.00 ; Overactive bladder N32.81 ; Mixed hyperlipidemia E78.2 ; Diarrhea of infectious origin A09 and Environmental allergies Z91.09 [place] [address] [address] Apr, [place] [address] [address] March, Hypothyroidism, unspecified E03.9 and Mi xed hyperlipidemia E78.2 [place] [address] [address] March, Diabetes mellitus E11.9 ; HTN (hypertens ion) I10 ; Hypothyroid E03.9 ; Depression F32.9 ; Overactive bladder N32.81 ; Other chronic pain G89.29 ; Lumbago with sciatica, unspecified side M54.40 ; Environmental allergies Z91.09 and Gastroesophageal reflux disease, esophagitis presence not specified K21.9 [place] [address] [address] March, [place] [address] [address] Jan, HTN (hypertension) I10 ; Hypothyroid E03 .9 ; Neuropathy G62.9 ; Diabetes mellitus E11.9 ; Chronic pain G89.29 ; GERD (gastroesophageal reflux disease) K21.9 ; Overactive bladder N32.81 and Depression F32.9 [place] [address] [address] 12 Dec, 2015 Ear pain, left H92.02 ; HTN (hypertensio n) I10 ; Hypothyroid E03.9 ; Neuropathy G62.9 ; Diabetes mellitus E11.9 ; Depression F32.9 ; GERD (gastroesophageal reflux disease) K21.9 ; Insomnia G47.00 and Overactive bladder N32.81 [place] [address] [address] Nov, Overactive bladder N32.81 and Chronic pa in G89.[address] [address] Nov, Kidney failure N19 [place] [address] [address] 08 Nov, [address] [address] Nov, [address] [address] Nov, Diabetes mellitus E11.9 ; Depression F32 .9 ; Chronic pain G89.29 ; GERD (gastroesophageal reflux disease) K21.9 ; Insomnia G47.00 ; HTN (hypertension) I10 ; Hypothyroid E03.9 ; COPD (chronic obstructive pulmonary disease) J44.9 ; Bladder incontinence R32 and Incontinence R32 [address] [address] Sep, Type 2 diabetes mellitus with foot ulcer E11.621 and Chromosomal abnormality, 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 [place] [address] [address] Sep, [address] [address] Aug, [address] [address] Aug, [address] [address] Aug, HTN (hypertension) I10 ; Encounter for i mmunization Z23 ; Hypothyroid E03.9 ; Neuropathy G62.9 ; Diabetes mellitus E11.9 ; Depression F32.9 ; Chronic pain G89.29 ; GERD (gastroesophageal reflux disease) K21.9 ; Insomnia G47.00 and COPD (chronic obstructive pulmonary disease) J44.[address] [address] Jun, [address] [address] Jun, [address] [address] May, Essential hypertension, benign 401.1 ; U nspecified hypothyroidism 244.9 ; Insomnia, unspecified 780.52 ; Shortness of breath 786.05 ; Depression 311 ; COPD (chronic obstructive pulmonary disease) 496 ; GERD (gastroesophageal reflux disease) 530.81 and Diabetes 1.5, 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 [address] May, [address] [address] May, [address] [address] May, Shortness of breath 786.05 ; Essential h ypertension, benign 401.1 ; Diabetes mellitus 250.00 ; Hyperlipidemia 272.4 ; Hypothyroid 244.9 ; Insomnia 780.52 and Cough 786.[address] [address] Apr, [address] [address] March, Shortness of breath 786.05 ; Nausea with vomiting 787.01 ; Essential hypertension, benign 401.1 ; Diabetes mellitus 250.00 ; Hyperlipidemia 272.4 and Hypothyroid 244.9 [facility] [address] [place] [id number] [place] [address] 14 Feb, 2015 [facility] [id number] [place] [address] Feb, [facility] [address] [id number] [place] [address] Jan, [facility] [address] [id number] [place] [address] Jan, [facility] [address] [address] Jan, [facility] [address] [id number] [place] [address] Jan, [facility] [address] [id number] [place] [address] Jan, [facility] [address] [id number] [place] [address] Jan, [facility] [address] [address] Jan, [facility] [address] [id number] [place] [address] Jan, [facility] [address] [id number] [place] [address] Jan, [facility] [id number] [place] [address] Jan, [facility] [id number] [place] [address] Dec, [facility] [id number] [place] [address] Dec, [facility] [id number] [place] [address] Dec, [facility] [address] [id number] [place] [address] Dec, 2014 [facility] [address] [id number] [place] [address] Dec, 2014 [facility] [address] [id number] [place] [address] Dec, 2014 [facility] [address] [id number] [place] [address] Dec, 2014 [facility] [address] [id number] [place] [address] Dec, 2014 [facility] [address] [id number] [place] [address] Dec, 2014 [facility] [address] [id number] [place] [address] Dec, 2014 [facility] [address] [id number] [place] [address] Oct, [facility] [address] [id number] [place] [address] Oct, [facility] [address] [id number] [place] [address] Oct, [facility] [address] [id number] [place] [address] Oct, [facility] [address] [id number] [place] [address] Oct, [facility] [address] [id number] [place] [address] Oct, [facility] [address] [id number] [place] [address] Oct, [facility] [address] [id number] [place] [address] Oct, [facility] [address] [id number] [place] [address] Oct, [facility] [address] [id number] [place] [address] Oct, [facility] [address] [id number] [place] [address] Oct, [facility] [address] [id number] [place] [address] Oct, [facility] [address] [id number] [place] [address] Oct, [facility] [address] [id number] [place] [address] Oct, [facility] [address] [id number] [place] [address] Sep, [facility] [address] [id number] [place] [address] Sep, [facility] [id number] [place] [address] Sep, [facility] [id number] [place] [address] Sep, [facility] [address] [id number] [place] [address] Sep, [facility] [id number] [place] [address] Sep, [facility] [id number] [place] [address] Sep, [facility] [id number] [place] [address] Sep, [facility] [address] [id number] [place] [address] Sep, [facility] [place] [facility] [id number] [place] [address] Aug, [facility] [place] [facility] [address] [id number] [place] [address] Aug, [facility] [place] [facility] [id number] [place] [address] Aug, [facility] [place] [facility] [address] [id number] [place] [address] 17 Aug, 2013 [facility] [place] [facility] [address] [facility] [id number] [place] [address] 16 Aug, 2013 [facility] [place] [facility] [address] [id number] [place] [address] Aug, [facility] [place] [facility] [address] [id number] [place] [address] Aug, [facility] [place] [facility] [address] [id number] [place] [address] Aug, [facility] [place] [facility] [address] [facility] [id number] [place] [address] Aug, [facility] [place] [facility] [address] [id number] [place] [address] 29 Jul, 2013 [facility] [place] [facility] [address] [id number] [place] [address] 29 Jul, 2013 [facility] [place] [facility] [address] [id number] [place] [address] Jul, 2013 [facility] [place] [facility] [address] [id number] [place] [address] Jul, 2013 [facility] [place] [facility] [address] [id number] [place] [address] Jul, 2013 [facility] [place] [facility] [address] [id number] [place] [address] Jul, 2013 [facility] [place] [facility] [address] [id number] [place] [address] Jul, 2013 [facility] [place] [facility] [address] [id number] [place] [address] Jul, 2013 [facility] [place] [facility] [address] [id number] [place] [address] Jul, 2013 [facility] [place] [facility] [address] [id number] [place] [address] Jul, 2013 [facility] [place] [facility] [address] [id number] [place] [address] Jun, [facility] [place] [facility] [address] [id number] [place] [address] Jun, [facility] [place] [facility] [address] [facility] [id number] [place] [address] Jun, [facility] [place] [facility] [address] [facility] [address] [id number] [place] [address] Jun, [facility] [place] [facility] [address] [facility] [address] [id number] [place] [address] Jun, [facility] [place] [facility] [address] [facility] [id number] [place] [address] Jun, [facility] [place] [facility] [address] [facility] [id number] [place] [address] Jun, [facility] [place] [facility] [address] [facility] [address] [id number] [place] [address] Jun, [facility] [place] [facility] [address] [id number] [place] [address] Jun, [facility] [place] [facility] [address] [facility] [id number] [place] [address] Jun, [facility] [place] [facility] [address] [facility] [id number] [place] [address] Jun, [facility] [place] [facility] [address] [facility] [id number] [place] [address] Jun, [facility] [place] [facility] [address] [id number] [place] [address] May, [facility] [place] [facility] [address] [facility] [id number] [place] [address] May, [facility] [place] [facility] [address] [facility] [id number] [place] [address] May, [facility] [place] [facility] [address] [facility] [facility] [id number] [place] [address] May, [facility] [place] [facility] [address] [facility] [id number] [place] [address] May, [facility] [place] [facility] [address] [facility] [id number] [place] [address] May, [facility] [place] [facility] [address] [facility] [id number] [place] [address] March, [facility] [place] [facility] [address] [id number] [place] [address] March, [facility] [place] [facility] [address] [id number] [place] [address] March, [facility] [place] [facility] [address] [id number] [place] [address] March, [facility] [place] [facility] [address] [facility] [id number] [place] [address] March, [facility] [place] [facility] [address] [id number] [place] [address] March, [facility] [place] [facility] [address] [id number] [place] [address] Feb, [facility] [place] [facility] [address] [id number] [place] [address] Feb, [facility] [place] [facility] [address] [id number] [place] [address] Feb, [facility] [place] [facility] [address] [id number] [place] [address] Feb, [facility] [place] [facility] [address] [id number] [place] [address] Jan, [facility] [place] [facility] [address] [id number] [place] [address] Jan, [facility] [place] [facility] [address] [id number] [place] [address] Jan, [facility] [place] [facility] [address] [id number] [place] [address] Jan, [facility] [place] [facility] [address] [id number] [place] [address] Jan, [facility] [place] [facility] [address] [id number] [place] [address] Jan, [facility] [place] [facility] [address] [id number] [place] [address] Jan, [facility] [place] [facility] [address] [id number] [place] [address] Jan, [facility] [place] [facility] [address] [id number] [place] [address] Jan, [facility] [place] [facility] [address] [id number] [place] [address] Jan, [facility] [place] [facility] [address] [id number] [place] [address] Jan, [facility] [place] [facility] [address] [id number] [place] [address] Jan, [facility] [place] [facility] [address] [id number] [place] [address] Dec, [facility] [place] [facility] [address] [id number] [place] [address] Dec, [facility] [place] [facility] [address] [id number] [place] [address] Dec, [facility] [place] [facility] [address] [id number] [place] [address] Dec, [facility] [place] [facility] [address] [id number] [place] [address] Dec, [facility] [place] [facility] [address] [id number] [place] [address] Dec, [facility] [place] [facility] [address] [id number] [place] [address] Nov, [facility] [place] [facility] [address] [id number] [place] [address] Nov, [facility] [place] [facility] [address] [id number] [place] [address] Oct, [facility] [place] [facility] [address] [id number] [place] [address] Oct, [facility] [place] [facility] [address] [id number] [place] [address] Oct, [facility] [place] [facility] [address] [id number] [place] [address] Oct, [facility] [place] [facility] [address] [id number] [place] [address] Oct, [facility] [place] [facility] [address] [id number] [place] [address] Oct, [facility] [place] [facility] [address] [id number] [place] [address] Sep, [facility] [place] [facility] [address] [id number] [place] [address] Sep, [facility] [place] [facility] [address] [id number] [place] [address] Sep, [facility] [place] [facility] [address] [id number] [place] [address] Sep, [facility] [place] [facility] [address] [id number] [place] [address] Aug, [facility] [place] [facility] [address] [id number] [place] [address] Aug, [facility] [place] [facility] [address] [id number] [place] [address] Aug, [facility] [place] [facility] [address] [id number] [place] [address] 17 Jul, 2013 [facility] [place] [facility] [address] [id number] [place] [address] 14 Jul, 2013 [facility] [place] [facility] [address] [id number] [place] [address] Jul, [facility] [place] [facility] [address] [id number] [place] [address] Jun, [facility] [place] [facility] [address] [id number] [place] [address] Jun, [facility] [place] [facility] [address] [id number] [place] [address] Jun, [facility] [place] [facility] [address] [id number] [place] [address] Apr, [facility] [address] [id number] [place] [address] Apr, [facility] [place] [facility] [address] [id number] [place] [address] March, [facility] [place] [facility] [address] [id number] [place] [address] March, [facility] [place] [facility] [address] [id number] [place] [address] March, [facility] [place] [facility] [address] [id number] [place] [address] March, [facility] [place] [facility] [address] [id number] [place] [address] Feb, [facility] [place] [facility] [address] [id number] [place] [address] Jan, [facility] [place] [facility] [address] [id number] [place] [address] Dec, [facility] [place] [facility] [address] [id number] [place] [address] Dec, [facility] [place] [facility] [address] [id number] [place] [address] Dec, [facility] [place] [facility] [address] [id number] [place] [address] Nov, [facility] [place] [facility] [address] [id number] [place] [address] Oct, [facility] [place] [facility] [address] [id number] [place] [address] Oct, [facility] [place] [facility] [id number] [place] [address] Sep, [facility] [place] [facility] [address] [id number] [place] [address] Sep, [facility] [place] [facility] [address] [id number] [place] [address] Sep, [facility] [place] [facility] [address] [id number] [place] [address] Sep, [facility] [place] [facility] [address] [id number] [place] [address] Sep, [facility] [place] [facility] [address] [id number] [place] [address] Sep, [facility] [place] [facility] [address] [id number] [place] [address] Sep, [facility] [place] [facility] [address] [id number] [place] [address] Aug, [facility] [place] [facility] [address] [id number] [place] [address] Aug, [facility] [place] [facility] [address] [id number] [place] [address] Aug, [facility] [place] [facility] [id number] [place] [address] Aug, [facility] [place] [facility] [address] [id number] [place] [address] Aug, [facility] [place] [facility] [address] [id number] [place] [address] Aug, [facility] [place] [facility] [address] [id number] [place] [address] Aug, [facility] [place] [facility] [address] [id number] [place] [address] Aug, [facility] [place] [facility] [address] [id number] [place] [address] Jul, [facility] [place] [facility] [address] [id number] [place] [address] Jul, [facility] [place] [facility] [address] [id number] [place] [address] Jun, [facility] [place] [facility] [address] [id number] [place] [address] May, [facility] [place] [facility] [address] [id number] [place] [address] Apr, [facility] [place] [facility] [address] [id number] [place] [address] Apr, [facility] [place] [facility] [address] [id number] [place] [address] Apr, [facility] [place] [facility] [address] [id number] [place] [address] March, [facility] [place] [facility] [address] [id number] [place] [address] March, [facility] [place] [facility] [address] [id number] [place] [address] March, [facility] [place] [facility] [address] [id number] [place] [address] March, [facility] [place] [facility] [address] [id number] [place] [address] March, [facility] [place] [facility] [address] [id number] [place] [address] March, [facility] [place] [facility] [address] [id number] [place] [address] March, [facility] [place] [facility] [address] [id number] [place] [address] Jan, [facility] [place] [facility] [address] [id number] [place] [address] Jan, [facility] [place] [facility] [address] [id number] [place] [address] Jan, [facility] [place] [facility] [address] [id number] [place] [address] Jan, [facility] [place] [facility] [address] [id number] [place] [address] Jan, [facility] [place] [facility] [address] [id number] [place] [address] Dec, [facility] [place] [facility] [address] [id number] [place] [address] Dec, [facility] [place] [facility] [address] [id number] [place] [address] 18 Nov, 2011 [facility] [place] [facility] [address] [id number] [place] [address] Nov, [facility] [place] [facility] [address] [id number] [place] [address] Nov, [facility] [place] [facility] [address] [id number] [place] [address] Nov, [facility] [place] [facility] [address] [id number] [place] [address] Oct, [facility] [place] [facility] [address] [id number] [place] [address] Oct, [facility] [place] [facility] [address] [id number] [place] [address] 14 Sep, 2011 [facility] [place] [facility] [address] [id number] [place] [address] Sep, [facility] [place] [facility] [address] [id number] [place] [address] Sep, [facility] [place] [facility] [address] [id number] [place] [address] May, [facility] [place] [facility] [address] [id number] [place] [address] Nov, [facility] [place] [facility] [address] [id number] [place] [address] Oct, [facility] [place] [facility] [address] [id number] [place] [address] 14 Oct, 2010 [facility] [place] [facility] [address] [id number] [place] [address] Oct, [facility] [place] [facility] [address] [id number] [place] [address] 15 Sep, 2010 [facility] [place] [facility] [address] [id number] [place] [address] Sep, [facility] [place] [facility] [address] [id number] [place] [address] Aug, [facility] [id number] [place] [address] March, [facility] [id number] [place] [address] Oct, [facility] [id number] [place] [address] Oct, [facility] [address] [address] Oct, [facility] [id number] [place] [address] Oct, [facility] [address] [address] Sep, [facility] [address] [address] Sep, [facility] [address] [address] Sep, [facility] [id number] [place] [address] Aug, [facility] [id number] [place] [address] Aug, [facility] [id number] [place] [address] Aug, [facility] [id number] [place] [address] Jan, IMMUNIZATIONS No Known Immunizations SOCIAL HISTORY [...]
--- OUTSIDE RECORDS SUMMARY | 2020-06-13 16:00 | XMS REPORT ---
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 Name Role Phone Migration, Doctor Unavailable Unavailable PROBLEMS Type Condition ICD9-CM Code [id number] Code Onset Dates Condition S tatus SNOMED Code Problem Chronic pain G89.29 Active 4517332 1 Problem Hypothyroid E03.9 Active 43007687 Problem Neuropathy G62.9 Active 798635034 Problem Mixed hyperlipidemia E78.2 Active 182118926 Problem Overactive bladder N32.81 Active 2 68758386 Problem FCI 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 Z79.4 Active 116864589 Problem Type 2 diabetes mellitus with hyperglycemia E11.65 Active 20364043 Problem Essential (primary) hypertension I10 Active 31920541 Problem Major depressive disorder, recurrent, in full remission F33.42 Active 43716568 Problem Irritable bowel syndrome with diarrhea K58.0 Active 589929850 Problem FCI (current) use of insulin Z79.4 Active 027832268 Problem Gastroesophageal reflux disease with esophagitis K 21.0 Active 138274041 Problem Anxiety disorder, unspecified type F41.9 Active 602139470 Problem Gastroparesis K31.84 Active 773012 006 Problem 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 Active 872869767 Problem Chronic obstructive pulmonary disease, unspecified COPD ty pe J44.9 Active 86333611 ALLERGIES No Information ENCOUNTERS Encounter Location Date Diagnosis [facility] [address] [facility] [id number] [address] [place] [address] 03 Feb, 2020 Chronic pain G89.29 [facility] [address] [facility] [id number] [address] [place] [address] 13 Jan, 2020 Type 2 diabetes mellitus wit h hyperglycemia E11.65 ; FCI (current) use of insulin Z79.4 and Hyperkalemia E87.5 [facility] [address] [facility] [id number] [address] [place] [address] 10 Jan, 2020 Type 2 diabetes mellitus wit h diabetic autonomic (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 ; Hypothyroid E03.9 ; Dyshydrosis L30.1 and Irritable bowel syndrome with diarrhea K58.0 [facility] [address] [place] [id number] [address] [place] [address] Jan, Chronic pain G89.29 [facility] [address] [place] [address] Dec, Chronic pain G89.29 [facility] [address] [place] [id number] [address] [place] [address] Dec, [facility] [address] [place] [address] Dec, [facility] [address] [place] [id number] [address] [place] [address] Nov, Chronic pain G89.29 [place] [address] [place] [address] Oct, Chronic pain G89.29 [place] [address] [place] [address] Sep, Chronic pain G89.29 [place] [address] [place] [id number] [address] [place] [address] Sep, Type 2 diabetes mellitus wit h diabetic autonomic (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 ; Irritable bowel syndrome with diarrhea K58.0 ; Essential (primary) hypertension I10 and Encounter for immunization Z23 [facility] [address] [place] [id number] [address] [place] [address] Aug, Chronic pain G89.29 [place] [address] [place] [id number] [address] [place] [address] Aug, [place] [address] [place] [id number] [address] [place] [address] Jul, Chronic pain G89.29 [place] [address] [place] [id number] [address] [place] [address] Jun, Other chronic pain G89.29 [facility] [address] [facility] [id number] [address] [place] [address] Jun, [place] [address] [facility] [id number] [address] [place] [address] Jun, Chronic pain G89.29 [place] [address] [facility] [id number] [address] [place] [address] Jun, Neuropathy G62.9 [place] [address] [facility] [id number] [address] [place] [address] Jun, [facility] Z00.00 ; Type 2 diabetes mellitus with hyperglycemia E11.65 ; Mixed hyperlipidemia E78.2 ; Hypothyroid E03.9 ; Gastroesophageal reflux disease with esophagitis K21.0 ; Essential (primary) hypertension I10 ; Major depressive disorder, recurrent, in full remission F33.42 ; Chronic obstructive pulmonary disease, unspecified COPD type J44.9 ; Neuropathy G62.9 and Encounter for immunization Z23 [place] [address] [facility] [id number] [address] [place] [address] Jun, Irritable bowel syndrome wit h diarrhea K58.0 [place] [address] [facility] [id number] [address] [place] [address] May, Chronic pain G89.29 [place] [address] [facility] [id number] [address] [place] [address] May, Type 2 diabetes mellitus wit h hyperglycemia E11.65 and Neuropathy G62.9 [place] [address] [facility] [id number] [address] [place] [address] May, Chronic pain G89.29 [place] [address] [facility] [id number] [address] [place] [address] Apr, Poison maryam dermatitis L23.7 [place] [address] [facility] [id number] [address] [place] [address] Apr, Chronic pain G89.29 [place] [address] [place] [id number] [address] [place] [address] March, Type 2 diabetes mellitus wit h hyperglycemia E11.65 [facility] [address] [facility] [id number] [address] [place] [address] March, Chronic pain G89.29 [facility] [address] [facility] [id number] [address] [place] [address] March, [address] [id number] [address] Feb, [facility] [address] [facility] [id number] [address] [place] [address] Feb, Other chronic pain G89.29 an d Chronic pain G89.29 [facility] [address] [facility] [id number] [address] [place] [address] Jan, Mixed hyperlipidemia E78.2 [facility] [address] [facility] [id number] [address] [place] [address] Jan, Chronic pain G89.29 [facility] [address] [facility] [id number] [address] [place] [address] Jan, Type 2 diabetes mellitus wit h hyperglycemia E11.65 ; Mixed hyperlipidemia E78.2 ; 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 ; Acquired hypothyroidism E03.9 and Essential (primary) hypertension I10 [facility] [address] [facility] [id number] [address] [place] [address] Dec, Chronic pain G89.29 [facility] [address] [facility] [id number] [address] [place] [address] Nov, Chronic pain G89.29 [facility] [address] [facility] [id number] [address] [place] [address] Nov, [facility] [address] [facility] [id number] [address] [place] [address] Oct, Chronic pain G89.29 [facility] [address] [facility] [id number] [address] [place] [address] Oct, [place] [address] [facility] [id number] [address] [place] [address] Sep, [place] [address] [place] [id number] [address] [place] [address] Sep, Type 2 diabetes mellitus wit h hyperglycemia E11.65 [place] [address] [place] [id number] [place] [address] Sep, Chronic pain G89.29 [place] [address] [place] [id number] [address] [place] [address] Sep, [place] [address] [place] [id number] [place] [address] Sep, Type 2 diabetes mellitus wit h hyperglycemia E11.65 ; Irritable bowel syndrome with diarrhea K58.0 ; Gastroparesis K31.84 ; 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 and Dermatitis L30.9 [place] [address] [place] [address] Aug, Chronic pain G89.29 [place] [address] [address] Jul, Chronic pain G89.29 [place] [address] [address] Jun, Type 2 diabetes mellitus wit h hyperglycemia E11.65 ; Neuropathy G62.9 ; Recurrent major depressive disorder, in partial remission F33.41 ; Chronic pain G89.29 and Hypertriglyceridemia E78.1 [place] [address] [place] [id number] [address] [place] [address] Jun, Hypothyroid E03.9 [place] [address] [place] [id number] [address] [place] [phone] Jun, Major depressive disorder, r ecurrent episode, moderate F33.1 and Anxiety disorder, unspecified type F41.9 [place] [address] [place] [id number] [address] [place] [address] Jun, [facility] [address] [facility] [id number] [address] [place] [address] Jun, Type 2 diabetes mellitus wit h hyperglycemia E11.65 ; FCI 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 Z79.4 ; Recurrent major depressive disorder, in partial remission F33.41 ; Hypothyroid E03.9 ; Candidal dermatitis B37.2 and Weakness generalized R53.1 [place] [address] [facility] [id number] [address] [place] [address] May, [facility] [address] [place] [id number] [address] [place] [address] May, [place] [address] [place] [id number] [place] [address] May, [place] [address] [place] [id number] [place] [address] May, Generalized abdominal pain R 10.84 and Candidal dermatitis B37.2 [place] [address] [place] [id number] [address] [place] [address] May, [place] [address] [place] [id number] [place] [address] May, [place] [address] [place] [id number] [place] [address] May, Nodular radiologic density R 93.8 ; Weight loss, unintentional R63.4 and Pulmonary emphysema, unspecified emphysema type J43.9 [place] [address] [place] [id number] [address] [place] [address] May, Chronic pain G89.29 [place] [address] [place] [id number] [place] [address] May, Syncope and collapse R55 ; C hronic fatigue R53.[address] lung screening R91.8 [place] [address] [place] [id number] [place] [address] May, [facility] [address] [facility] [id number] [address] [place] [address] Apr, Chronic fatigue R53.82 ; Abn ormal chest CT R93.8 ; Elevated erythrocyte sedimentation rate R70.0 ; Hypothyroid E03.9 and Recurrent major depressive disorder, in partial remission F33.41 [facility] [address] [facility] [id number] [address] [place] [address] Apr, Hypothyroid E03.9 [facility] [address] [facility] [id number] [address] [place] [address] Apr, Depression F32.9 [facility] [address] [facility] [id number] [address] [place] [address] Apr, [facility] [address] [facility] [id number] [address] [place] [address] March, [facility] [address] [facility] [id number] [address] [place] [address] March, Hypothyroid E03.9 [facility] [address] [facility] [id number] [address] [place] [address] March, Diabetes mellitus E11.9 and Hypothyroid E03.9 [facility] [address] [facility] [id number] [address] [place] [address] March, Diabetes mellitus E11.9 [facility] [address] [facility] [id number] [address] [place] [address] March, Hypothyroid E03.9 and Elevat ed liver enzymes R74.8 [facility] [address] [facility] [id number] [address] [place] [address] March, Type 2 diabetes mellitus wit h hyperglycemia E11.65 ; FCI 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 Z79.4 ; Pulmonary emphysema, unspecified emphysema type J43.9 ; Hypothyroid E03.9 ; Neuropathy G62.9 ; Mixed hyperlipidemia E78.2 ; Chronic pain G89.29 ; Gastroesophageal reflux disease with esophagitis K21.0 ; Irritable bowel syndrome with diarrhea K58.0 ; Overactive bladder N32.81 and Recurrent major depressive disorder, in partial remission F33.41 [place] [address] [place] [id number] [address] [place] [address] Feb, Chronic pain G89.29 [place] [address] [place] [id number] [address] [place] [address] Feb, Type 2 diabetes mellitus wit h hyperglycemia E11.65 and Skin lesion of scalp L98.9 [place] [address] [place] [id number] [address] [place] [address] Feb, [place] [address] [place] [id number] [address] [place] [address] Jan, Type 2 diabetes mellitus wit h [...] and Irritable bowel syndrome with diarrhea K58.0 [place] [address] [place] [id number] [address] [place] [address] Jan, [place] [address] [place] [id number] [address] [place] [address] Jan, Controlled substance agreeme nt signed Z79.899 [place] [address] [place] [id number] [address] [place] [address] Dec, Type 2 diabetes mellitus wit h [...] treatment Z91.19 and Overweight (BMI 25.0-29.9) E66.3 [facility] [address] [facility] [id number] [address] [place] [address] Dec, Controlled substance agreeme nt signed Z79.899 [facility] [address] [facility] [id number] [address] [place] [address] Nov, Type 2 diabetes mellitus wit h hyperglycemia E11.65 and Current non- adherence to medical treatment Z91.19 [facility] [address] [facility] [id number] [address] [place] [address] Nov, [facility] [address] [place] [id number] [address] [place] [address] Nov, Chronic pain G89.29 [place] [address] [place] [id number] [address] [place] [address] Nov, [place] [address] [place] [id number] [address] [place] [address] Nov, Hypothyroid E03.9 [facility] [address] [facility] [id number] [address] [place] [address] Nov, Hypothyroid E03.9 [place] [address] [place] [id number] [address] [place] [address] Nov, Pulmonary emphysema, unspeci fied emphysema type J43.9 and Irritable bowel syndrome with diarrhea K58.0 [place] [address] [place] [id number] [address] [place] [address] Oct, [facility] [address] [place] [id number] [address] [place] [address] Oct, [place] [address] [place] [address] Oct, [facility] [address] [place] [id number] [address] [place] [address] Oct, [place] [address] [place] [id number] [address] [place] [address] Oct, Chronic pain G89.29 [place] [address] [address] Oct, Diabetes mellitus E11.9 ; De pression F32.9 ; Mixed hyperlipidemia E78.2 ; Hypotension, unspecified hypotension type I95.9 ; Pulmonary emphysema, unspecified emphysema type J43.9 and Weight loss, unintentional R63.4 [place] [address] [address] Oct, Chronic pain G89.29 [place] [address] [address] Sep, Chronic pain G89.29 [place] [address] [address] Sep, Hypothyroid E03.9 and Diabet es mellitus E11.9 [place] [address] [address] Aug, Type 2 diabetes mellitus wit h hyperglycemia E11.65 ; FCI 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 Z79.4 ; Essential (primary) hypertension I10 ; Hypothyroid E03.9 ; Neuropathy G62.9 ; Chronic pain G89.29 ; Mixed hy perlipidemia E78.2 and Encounter for immunization Z23 [place] [address] [address] Aug, Chronic pain G89.29 [place] [address] [address] Aug, Overactive bladder N32.81 ; Diabetes mellitus E11.9 and Chronic pain G89.29 [place] [address] [address] Jul, [place] [address] [address] Jun, [place] [address] [address] Jun, [place] [address] [facility] [id number] [address] [place] [address] Jun, Hypothyroid E03.9 [facility] [address] [facility] [id number] [address] [place] [address] Jun, Diabetes mellitus E11.9 ; Hy pothyroid E03.9 ; Neuropathy G62.9 ; Chronic pain G89.29 and Neck mass R22.1 [facility] [address] [id number] [address] [place] [address] Apr, [facility] [address] [facility] [id number] [address] [place] [address] Apr, Acute cystitis without hemat uria N30.00 [facility] [address] [facility] [id number] [address] [place] [address] March, [facility] [address] [facility] [id number] [address] [place] [address] March, [facility] [address] [facility] [id number] [address] [place] [address] March, Near syncope R55 [facility] [address] [facility] [id number] [address] [place] [address] Feb, [facility] [address] [facility] [id number] [address] [place] [address] Feb, Chronic pain G89.29 [facility] [address] [facility] [id number] [address] [place] [address] Feb, [facility] [address] [facility] [id number] [address] [place] [address] Feb, [facility] [address] [facility] [id number] [address] [place] [address] Jan, Chronic pain G89.29 [facility] [address] [facility] [id number] [address] [place] [address] Jan, [facility] [address] [facility] [id number] [address] [place] [address] 16 Jan, 2017 [facility] [address] [place] [id number] [address] [place] [address] 14 Jan, 2017 Diabetes mellitus E11.9 ; Hy pothyroid E03.9 ; GERD (gastroesophageal reflux disease) K21.9 ; Insomnia G47.00 ; Functional 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 ; Neuropathy G62.9 ; Depression F32.9 ; Chronic pain G89.29 ; Irritable bowel syndrome with diarrhea K58.0 ; Overactive bladder N32.81 ; Mixed hyperlipidemia E78.2 and Bronchitis J40 [facility] [address] [facility] [id number] [address] [place] [address] Dec, [facility] [address] [place] [id number] [address] [place] [address] 24 Dec, 2016 [facility] [address] [place] [id number] [address] [place] [address] Dec, [facility] [address] [place] [id number] [address] [place] [address] Dec, [facility] [address] [facility] [id number] [address] [place] [address] Dec, Chronic pain G89.29 [facility] [address] [facility] [id number] [address] [place] [id number] 23 Dec, 2016 [facility] [id number] [place] [phone] 20 Dec, 2016 [facility] [id number] [place] [id number] 17 Dec, 2016 Type 2 diabetes mellitus wit h foot ulcer E11.621 [facility] [id number] [place] [phone] 17 Dec, 2016 Type 2 diabetes mellitus wit h foot ulcer E11.621 [facility] [id number] [place] [phone] 14 Dec, 2016 HTN (hypertension) I10 ; Dep ression F32.9 ; Type 2 diabetes mellitus with foot ulcer E11.621 ; Functional 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 ; Irritable bowel syndrome with diarrhea K58.0 ; Chronic pain G89.29 ; Insomnia G47.00 ; Overactive bladder N32.81 ; Mixed hyperlipidemia E78.2 ; Gastroesophageal reflux disease with esophagitis K21.0 and Acquired hypothyroidism E03.9 [place] [id number] [place] [phone] Nov, [place] [id number] [place] [phone] Oct, [place] [id number] [place] [phone] Oct, [place] [id number] [place] [phone] Oct, [place] [id number] [place] [phone] Sep, Functional 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 ; HTN (hypertension) I10 ; Diabetes mellitus E11.9 ; Depression F32.9 ; Overactive bladder N32.81 ; Mixed hyperlipidemia E78.2 ; Gastroesophageal reflux disease without esophagitis K21.9 ; Chronic pain G89.29 ; Insomnia G47.00 and Acquired hypothyroidism E03.9 [place] [id number] [place] [phone] Sep, [place] [id number] [place] [phone] Aug, Encounter for immunization Z 23 [place] [id number] [place] [phone] Aug, [place] [id number] [place] [phone] Jul, [place] [id number] [place] [phone] Jun, Type 2 diabetes mellitus wit hout complications E11.9 ; HTN (hypertension) I10 ; Hypothyroid E03.9 ; Neuropathy G62.9 ; Depression F32.9 ; Chronic pain G89.29 ; GERD (gastroesophageal reflux disease) K21.9 ; Insomnia G47.00 ; Overactive bladder N32.81 ; Mixed hyperlipidemia E78.2 ; Diarrhea of infectious origin A09 and Environmental allergies Z91.09 [place] [id number] [address] Apr, [place] [address] [address] March, Hypothyroidism, unspecified E03.9 and Mixed hyperlipidemia E78.2 [place] [address] [address] March, Diabetes mellitus E11.9 ; HT N (hypertension) I10 ; Hypothyroid E03.9 ; Depression F32.9 ; Overactive bladder N32.81 ; Other chronic pain G89.29 ; Lumbago with sciatica, unspecified side M54.40 ; Environmental allergies Z91.09 and Gastroesophageal reflux disease, esophagitis presence not specified K21.9 [place] [address] [address] March, [place] [address] [address] Jan, HTN (hypertension) I10 ; Hyp othyroid E03.9 ; Neuropathy G62.9 ; Diabetes mellitus E11.9 ; Chronic pain G89.29 ; GERD (gastroesophageal reflux disease) K21.9 ; Overactive bladder N32.81 and Depression F32.9 [place] [address] [address] 12 Dec, 2015 Ear pain, left H92.02 ; HTN (hypertension) I10 ; Hypothyroid E03.9 ; Neuropathy G62.9 ; Diabetes mellitus E11.9 ; Depression F32.9 ; GERD (gastroesophageal reflux disease) K21.9 ; Insomnia G47.00 and Overactive bladder N32.81 [place] [address] [address] Nov, Overactive bladder N32.81 an d Chronic pain G89.29 [place] [address] [address] Nov, Kidney failure N19 [place] [address] [address] Nov, [place] [address] [address] Nov, [place] [address] [address] Nov, Diabetes mellitus E11.9 ; De pression F32.9 ; Chronic pain G89.29 ; GERD (gastroesophageal reflux disease) K21.9 ; Insomnia G47.00 ; HTN (hypertension) I10 ; Hypothyroid E03.9 ; COPD (chronic obstructive pulmonary disease) J44.9 ; Bladder incontinence R32 and Incontinence R32 [place] [address] [address] Sep, Type 2 diabetes mellitus wit h foot ulcer E11.621 and Chromosomal abnormality, 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 [place] [address] [address] Sep, [place] [address] [address] Aug, [place] [address] [address] Aug, [place] [address] [address] Aug, HTN (hypertension) I10 ; Enc ounter for immunization Z23 ; Hypothyroid E03.9 ; Neuropathy G62.9 ; Diabetes mellitus E11.9 ; Depression F32.9 ; Chronic pain G89.29 ; GERD (gastroesophageal reflux disease) K21.9 ; Insomnia G47.00 and COPD (chronic obstructive pulmonary disease) J44.9 [place] [address] [place] [address] Jun, [facility] [address] [address] Jun, [facility] [address] [address] May, Essential hypertension, ivis gn 401.1 ; Unspecified hypothyroidism 244.9 ; Insomnia, unspecified 780.52 ; Shortness of breath 786.05 ; Depression 311 ; COPD (chronic obstructive pulmonary disease) 496 ; GERD (gastroesophageal reflux disease) 530.81 and Diabetes 1.5, 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 [facility] [address] [address] May, [facility] [address] [address] May, [facility] [address] [address] May, Shortness of breath 786.05 ; Essential hypertension, benign 401.1 ; Diabetes mellitus 250.00 ; Hyperlipidemia 272.4 ; Hypothyroid 244.9 ; Insomnia 780.52 and Cough 786.2 [facility] [address] [address] Apr, [facility] [address] [address] March, Shortness of breath 786.05 ; Nausea with vomiting 787.01 ; Essential hypertension, benign 401.1 ; Diabetes mellitus 250.00 ; Hyperlipidemia 272.4 and Hypothyroid 244.9 [facility] [address] [address] Feb, [facility] [address] [address] Feb, [facility] [address] [address] Jan, [facility] [address] [place] [address] 24 Jan, 2015 [facility] [address] [id number] [address] [place] [address], [place] [address] Jan, [facility] [address] [id number] [address] [place] [address], [place] [address] Jan, [facility] [address] [id number] [address] [place] [address], [place] [address] Jan, 2014 [facility] [address] [id number] [address] [place] [address], [place] [address] 05 Jan, 2015 [facility] [address] [id number] [address] [place] [address], [place] [address] Jan, [facility] [address] [id number] [address] [place] [address], [place] [address] Jan, [facility] [address] [id number] [address] [place] [address], [place] [address] Jan, [facility] [address] [id number] [address] [place] [address], [place] [address] Jan, [facility] [address] [id number] [address] [place] [address], [place] [address] Dec, 2014 [facility] [address] [id number] [address] [place] [address], [place] [address] Dec, 2014 [facility] [address] [id number] [address] [place] [address], [place] [address] Dec, 2014 [facility] [address] [id number] [address] [place] [address], [place] [address] Dec, 2014 [facility] [address] [id number] [address] [place] [address], [place] [address] Dec, 2014 [facility] [address] [id number] [address] [place] [address], [place] [address] Dec, 2014 [facility] [address] [id number] [address] [place] [address], [place] [address] Dec, [facility] [address] [id number] [facility] [place] [address] Dec, 2014 [facility] [address] [id number] [address] [place] [address], [place] [address] Dec, 2014 [facility] [address] [id number] [address] [place] [address], [place] [address] Dec, 2014 [facility] [address] [id number] [address] [place] [address], [place] [address] Oct, [facility] [address] [id number] [address] [place] [address], [place] [address] Oct, [facility] [address] [id number] [address] [place] [address], [place] [address] Oct, [facility] [address] [id number] [address] [place] [address], [place] [address] Oct, [facility] [address] [id number] [address] [place] [address], [place] [address] Oct, [facility] [address] [id number] [address] [place] [address], [place] [address] Oct, [facility] [address] [id number] [address] [place] [address], [place] [address] Oct, [facility] [address] [id number] [address] [place] [address], [place] [address] Oct, [facility] [address] [id number] [address] [place] [address], [place] [address] Oct, [facility] [address] [id number] [address] [place] [address], [place] [address] Oct, [facility] [address] [id number] [address] [place] [address], [place] [address] Oct, [facility] [address] [id number] [address] [place] [address], [place] [address] Oct, [facility] [address] [id number] [address] [place] [address], [place] [address] Oct, [facility] [address] [id number] [address] [place] [address], [place] [address] Oct, [facility] [address] [id number] [address] [place] [address], [place] [address] Sep, [facility] [address] [id number] [address] [place] [address], [place] [address] Sep, [facility] [address] [id number] [address] [place] [address], [place] [address] Sep, [facility] [address] [id number] [address] [place] [address], [place] [address] Sep, [facility] [address] [id number] [address] [place] [address], [place] [address] Sep, [facility] [address] [id number] [address] [place] [address], [place] [address] Sep, [facility] [address] [id number] [address] [place] [address], [place] [address] Sep, [facility] [address] [id number] [address] [place] [address], [place] [address] Sep, [facility] [address] [id number] [address] [place] [address], [place] [address] Sep, [facility] [address] [id number] [address] [place] [address], [place] [address] Aug, [facility] [address] [id number] [address] [place] [address], [place] [address] Aug, [facility] [address] [id number] [address] [place] [address], [place] [address] Aug, [facility] [address] [id number] [address] [place] [address], [place] [address] Aug, [facility] [address] [id number] [address] [place] [address], [place] [address] 16 Aug, 2014 [facility] [address] [id number] [address] [place] [address], [place] [address] Aug, [facility] [address] [id number] [address] [place] [address], [place] [address] Aug, [facility] [address] [id number] [address] [place] [address], [place] [address] Aug, [facility] [address] [id number] [address] [place] [address], [place] [address] Aug, [facility] [address] [id number] [address] [place] [address], [place] [address] 29 Jul, 2014 [facility] [address] [id number] [address] [place] [address], [place] [address] 29 Jul, 2014 [facility] [address] [id number] [address] [place] [address], [place] [address] Jul, [facility] [address] [id number] [address] [place] [address], [place] [address] Jul, 2013 [facility] [address] [id number] [address] [place] [address], [place] [address] Jul, [facility] [address] [id number] [address] [place] [address], [place] [address] Jul, [facility] [address] [id number] [address] [place] [address], [place] [address] Jul, [facility] [address] [id number] [address] [place] [address], [place] [address] Jul, 2013 [facility] [address] [id number] [address] [place] [address], [place] [address] Jul, [facility] [address] [id number] [address] [place] [address], [place] [address] Jul, [facility] [address] [id number] [address] [place] [address], [place] [address] Jun, [facility] [address] [id number] [address] [place] [address], [place] [address] Jun, [facility] [address] [id number] [facility] [place] [address] Jun, [facility] [address] [id number] [address] [place] [address], [place] [address] Jun, [facility] [address] [id number] [facility] [place] [address] Jun, [facility] [address] [id number] [address] [place] [address], [place] [address] Jun, [facility] [address] [id number] [address] [place] [address], [place] [address] Jun, [facility] [address] [id number] [address] [place] [address], [place] [address] Jun, [facility] [address] [id number] [address] [place] [address], [place] [address] Jun, [facility] [address] [id number] [address] [place] [address], [place] [address] Jun, [facility] [address] [id number] [address] [place] [address], [place] [address] Jun, [facility] [address] [id number] [address] [place] [address], [place] [address] Jun, [facility] [address] [id number] [address] [place] [address], [place] [address] May, [facility] [address] [id number] [address] [place] [address], [place] [address] May, [facility] [address] [id number] [address] [place] [address], [place] [address] May, [facility] [address] [id number] [address] [place] [address], [place] [address] May, [facility] [address] [id number] [address] [place] [address], [place] [address] May, [facility] [address] [id number] [facility] [place] [address] May, [facility] [address] [id number] [address] [place] [address], [place] [address] March, [facility] [address] [id number] [address] [place] [address], [place] [address] March, [facility] [address] [id number] [address] [place] [address], [place] [address] March, [facility] [address] [id number] [address] [place] [address], [place] [address] March, [facility] [address] [id number] [address] [place] [address], [place] [address] March, [facility] [address] [id number] [address] [place] [address], [place] [address] March, [facility] [address] [id number] [address] [place] [address], [place] [address] Feb, [facility] [address] [id number] [address] [place] [address], [place] [address] Feb, [facility] [address] [id number] [address] [place] [address], [place] [address] Feb, [facility] [address] [id number] [address] [place] [address], [place] [address] Feb, [facility] [address] [id number] [address] [place] [address], [place] [address] Jan, [facility] [address] [id number] [address] [place] [address], [place] [address] Jan, [facility] [address] [id number] [address] [place] [address], [place] [address] Jan, [facility] [address] [id number] [address] [place] [address], [place] [address] Jan, [facility] [address] [id number] [address] [place] [address], [place] [address] Jan, [facility] [address] [id number] [address] [place] [address], [place] [address] Jan, [facility] [address] [id number] [address] [place] [address], [place] [address] Jan, [facility] [address] [id number] [address] [place] [address], [place] [address] Jan, [facility] [address] [id number] [address] [place] [address], [place] [address] Jan, [facility] [address] [id number] [address] [place] [address], [place] [address] Jan, [facility] [address] [id number] [address] [place] [address], [place] [address] Jan, [facility] [address] [id number] [address] [place] [address], [place] [address] Jan, [facility] [address] [id number] [address] [place] [address], [place] [address] Dec, [facility] [address] [id number] [address] [place] [address], [place] [address] Dec, [facility] [address] [id number] [address] [place] [address], [place] [address] Dec, [facility] [address] [id number] [address] [place] [address], [place] [address] Dec, [facility] [address] [id number] [address] [place] [address], [place] [address] Dec, [facility] [address] [id number] [address] [place] [address], [place] [address] Dec, [facility] [address] [id number] [address] [place] [address], [place] [address] Nov, [facility] [address] [id number] [address] [place] [address], [place] [address] Nov, [facility] [address] [id number] [address] [place] [address], [place] [address] 13 Oct, 2013 [facility] [address] [id number] [address] [place] [address], [place] [address] Oct, [facility] [address] [id number] [address] [place] [address], [place] [address] Oct, [facility] [address] [id number] [address] [place] [address], [place] [address] Oct, [facility] [address] [id number] [address] [place] [address], [place] [address] Oct, [facility] [address] [id number] [address] [place] [address], [place] [address] Oct, [facility] [address] [id number] [address] [place] [address], [place] [address] Sep, [facility] [address] [id number] [address] [place] [address], [place] [address] Sep, [facility] [address] [id number] [address] [place] [address], [place] [address] Sep, [facility] [address] [id number] [address] [place] [address], [place] [address] Sep, [facility] [address] [id number] [address] [place] [address], [place] [address] Aug, [facility] [address] [id number] [address] [place] [address], [place] [address] Aug, [facility] [address] [id number] [address] [place] [address], [place] [address] 08 Aug, 2013 [facility] [address] [id number] [address] [place] [address], [place] [address] 17 Jul, 2013 [facility] [address] [id number] [address] [place] [address], [place] [address] 14 Jul, 2013 [facility] [address] [id number] [address] [place] [address], [place] [address] Jul, [facility] [address] [id number] [address] [place] [address], [place] [address] Jun, [facility] [address] [id number] [address] [place] [address], [place] [address] Jun, [facility] [address] [id number] [address] [place] [address], [place] [address] Jun, [facility] [address] [id number] [address] [place] [address], [place] [address] Apr, [facility] [address] [id number] [address] [place] [address], [place] [address] Apr, [facility] [address] [id number] [address] [place] [address], [place] [address] March, [facility] [address] [id number] [address] [place] [address], [place] [address] March, [facility] [address] [id number] [address] [place] [address], [place] [address] March, [facility] [address] [id number] [address] [place] [address], [place] [address] March, [facility] [address] [id number] [address] [place] [address], [place] [address] Feb, [facility] [address] [id number] [address] [place] [address], [place] [address] Jan, [facility] [address] [id number] [address] [place] [address], [place] [address] Dec, [facility] [address] [id number] [address] [place] [address], [place] [address] Dec, [facility] [address] [id number] [address] [place] [address], [place] [address] Dec, [facility] [address] [id number] [address] [place] [address], [place] [address] Nov, [facility] [address] [id number] [address] [place] [address], [place] [address] 13 Oct, 2012 [facility] [address] [id number] [address] [place] [address], [place] [address] 13 Oct, 2012 [facility] [address] [id number] [address] [place] [address], [place] [address] Sep, [facility] [address] [id number] [address] [place] [address], [place] [address] Sep, [facility] [address] [id number] [address] [place] [address], [place] [address] Sep, [facility] [address] [id number] [address] [place] [address], [place] [address] Sep, [facility] [address] [id number] [address] [place] [address], [place] [address] Sep, [facility] [address] [id number] [address] [place] [address], [place] [address] Sep, [facility] [address] [id number] [address] [place] [address], [place] [address] Sep, [facility] [address] [id number] [address] [place] [address], [place] [address] Aug, [facility] [address] [id number] [address] [place] [address], [place] [address] 16 Aug, 2012 [facility] [address] [id number] [address] [place] [address], [place] [address] Aug, [facility] [address] [id number] [address] [place] [address], [place] [address] Aug, [facility] [address] [id number] [address] [place] [address], [place] [address] Aug, [facility] [address] [id number] [address] [place] [address], [place] [address] 08 Aug, 2012 [facility] [address] [id number] [address] [place] [address], [place] [address] 07 Aug, 2012 [facility] [address] [id number] [address] [place] [address], [place] [address] Aug, [facility] [address] [id number] [address] [place] [address], [place] [address] Jul, [facility] [address] [id number] [address] [place] [address], [place] [address] Jul, [facility] [address] [id number] [address] [place] [address], [place] [address] Jun, [facility] [address] [id number] [address] [place] [address], [place] [address] May, [facility] [address] [id number] [address] [place] [address], [place] [address] Apr, [facility] [address] [id number] [address] [place] [address], [place] [address] Apr, [facility] [address] [id number] [address] [place] [address], [place] [address] Apr, [facility] [address] [id number] [address] [place] [address], [place] [address] March, [facility] [address] [id number] [address] [place] [address], [place] [address] March, [facility] [address] [id number] [address] [place] [address], [place] [address] March, [facility] [address] [id number] [address] [place] [address], [place] [address] March, [facility] [address] [id number] [address] [place] [address], [place] [address] March, [facility] [address] [id number] [address] [place] [address], [place] [address] March, [facility] [address] [id number] [address] [place] [address], [place] [address] March, [facility] [facility] [address] [id number] [address] [place] [address], [place] [address] Jan, [facility] [address] [id number] [address] [place] [address], [place] [address] Jan, [facility] [address] [id number] [address] [place] [address], [place] [address] 20 Jan, 2012 [facility] [address] [id number] [address] [place] [address], [place] [address] 13 Jan, 2012 [facility] [address] [id number] [address] [place] [address], [place] [address] Jan, [facility] [address] [id number] [address] [place] [address], [place] [address] 08 Dec, 2011 [facility] [address] [id number] [address] [place] [address], [place] [address] 06 Dec, 2011 [facility] [address] [id number] [address] [place] [address], [place] [address] Nov, [facility] [address] [id number] [address] [place] [address], [place] [address] Nov, [facility] [address] [id number] [address] [place] [address], [place] [address] Nov, [facility] [address] [id number] [address] [place] [address], [place] [address] Nov, [facility] [address] [id number] [address] [place] [address], [place] [address] Oct, [facility] [address] [id number] [address] [place] [address], [place] [address] Oct, [facility] [address] [id number] [address] [place] [address], [place] [address] 14 Sep, 2011 [facility] [address] [id number] [address] [place] [address], [place] [address] 10 Sep, 2011 [facility] [address] [id number] [address] [place] [address], [place] [address] 10 Sep, 2011 [facility] [address] [id number] [address] [place] [address], [place] [address] 11 May, 2011 [facility] [address] [id number] [address] [place] [address], [place] [address] Nov, [facility] [address] [id number] [address] [place] [address], [place] [address] 29 Oct, 2010 [facility] [address] [id number] [address] [place] [address], [place] [address] 14 Oct, 2010 [facility] [address] [id number] [address] [place] [address], [place] [address] 08 Oct, 2010 [facility] [address] [id number] [address] [place] [address], [place] [address] 15 Sep, 2010 [facility] [address] [id number] [address] [place] [address], [place] [address] Sep, [facility] [address] [id number] [address] [place] [address], [place] [address] Aug, [facility] [address] [id number] [address] [place] [address], [place] [address] March, [facility] [address] [id number] [address] [place] [address], [place] [address] Oct, [facility] [address] [id number] [address] [place] [address], [place] [address] 17 Oct, 2009 [facility] [address] [id number] [address] [place] [address], [place] [address] Oct, [facility] [address] [id number] [address] [place] [address], [place] [address] Oct, [facility] [address] [id number] [address] [place] [address], [place] [address] Sep, [facility] [address] [id number] [address] [place] [address], [place] [address] Sep, [facility] [address] [id number] [address] [place] [address], [place] [address] Sep, [facility] [address] [facility] [id number] [address] [place] [phone] Aug, [facility] [address] [facility] [id number] [address] [place] [id number] Aug, [facility] [address] [facility] [id number] [address] [place] [id number] Aug, [facility] [address] [facility] [id number] [address] [place] [phone] Jan, IMMUNIZATIONS No Known Immunizations SOCIAL HISTORY Never Assessed REASON FOR VISIT PLAN OF CARE VITAL SIGNS Height 69 in 2012-09-16 Weight 245 lbs 2012-09-16 Temperature 98 degrees Fahrenheit 2012-09-16 Heart Rate 72 bpm 2012-09-16 Respiratory Rate 16 2012-09-16 Blood pressure systolic 128 mmHg 2012-09-16 Blood pressure diastolic 82 mmHg 2012-09-16 MEDICATIONS Unknown Medications RESULTS No Results PROCEDURES Procedure Date Ordered Result Body Site MEASURE BLOOD OXYGEN LEVEL Sep 16, 2012 NATRIURETIC PEPTIDE Sep 16, 2012 GLUCOSE BLOOD TEST Sep 16, 2012 COMPREHEN METABOLIC PANEL Sep 16, 2012 VENIPUNCT, ROUTINE* Sep 16, 2012 INSTRUCTIONS MEDICATIONS ADMINISTERED No Known Medications MEDICAL [...]
--- OUTSIDE RECORDS SUMMARY | 2020-06-13 16:00 | XMS REPORT ---
Author Author Jah Durant Doctor Organization [facility] Address Unknown Phone Unavailable Care Team Providers Care Clinical Trials Systems Administrator Name Role Phone Migration, Doctor Unavailable Unavailable PROBLEMS Type Condition ICD9-CM Code PCF50-IK Code Onset Dates Condition S tatus SNOMED Code Problem Chronic pain G89.29 Active 6753323 1 Problem Hypothyroid E03.9 Active 26940339 Problem Neuropathy G62.9 Active 717278636 Problem Mixed hyperlipidemia E78.2 Active 552450947 Problem Overactive bladder N32.81 Active 2 17646851 Problem FPC 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 Z79.4 Active 041452930 Problem Type 2 diabetes mellitus with hyperglycemia E11.65 Active 77095137 Problem Essential (primary) hypertension I10 Active 20615450 Problem Major depressive disorder, recurrent, in full remission F33.42 Active 79597096 Problem Irritable bowel syndrome with diarrhea K58.0 Active 045283484 Problem FPC (current) use of insulin Z79.4 Active 215471061 Problem Gastroesophageal reflux disease with esophagitis K 21.0 Active 820515802 Problem Anxiety disorder, unspecified type F41.9 Active 491716305 Problem Gastroparesis K31.84 Active 650232 006 Problem 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 Active 707895706 Problem Chronic obstructive pulmonary disease, unspecified COPD ty pe J44.9 Active [id number] ALLERGIES No Information ENCOUNTERS Encounter Location Date Diagnosis [facility] [address] [facility] [id number] [address] [place] [id number] 03 Feb, 2020 Chronic pain G89.29 [facility] [address] [facility] [id number] [address] [place] [id number] 13 Jan, 2020 Type 2 diabetes mellitus wit h hyperglycemia E11.65 ; FPC (current) use of insulin Z79.4 and Hyperkalemia E87.5 [facility] [address] [facility] [id number] [address] [place] [id number] 10 Jan, 2020 Type 2 diabetes mellitus wit h diabetic autonomic (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 ; Hypothyroid E03.9 ; Dyshydrosis L30.1 and Irritable bowel syndrome with diarrhea K58.0 [facility] [address] [place] [id number] [address] [place] [id number] Jan, Chronic pain G89.29 [facility] [id number] [place] [id number] Dec, Chronic pain G89.29 [facility] [address] [place] [id number] [address] [place] [id number] Dec, [facility] [address] [place] [id number] Dec, [facility] [address] [place] [id number] [address] [place] [address] Nov, Chronic pain G89.29 [place] [address] [place] [address] Oct, Chronic pain G89.29 [place] [address] [place] [address] Sep, Chronic pain G89.29 [place] [address] [place] [id number] [address] [place] [id number] Sep, Type 2 diabetes mellitus wit h diabetic autonomic (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 ; Irritable bowel syndrome with diarrhea K58.0 ; Essential (primary) hypertension I10 and Encounter for immunization Z23 [facility] [address] [place] [id number] [address] [place] [id number] Aug, Chronic pain G89.29 [place] [address] [place] [id number] [address] [place] [id number] Aug, [place] [address] [place] [id number] [address] [place] [address] Jul, Chronic pain G89.29 [place] [address] [place] [id number] [address] [place] [address] Jun, Other chronic pain G89.29 [facility] [address] [facility] [id number] [address] [place] [phone] Jun, [place] [address] [facility] [id number] [address] [place] [address] Jun, Chronic pain G89.29 [place] [address] [facility] [id number] [address] [place] [phone] Jun, Neuropathy G62.9 [place] [address] [facility] [id number] [address] [place] [address] Jun, [facility] Z00.00 ; Type 2 diabetes mellitus with hyperglycemia E11.65 ; Mixed hyperlipidemia E78.2 ; Hypothyroid E03.9 ; Gastroesophageal reflux disease with esophagitis K21.0 ; Essential (primary) hypertension I10 ; Major depressive disorder, recurrent, in full remission F33.42 ; Chronic obstructive pulmonary disease, unspecified COPD type J44.9 ; Neuropathy G62.9 and Encounter for immunization Z23 [place] [address] [facility] [id number] [address] [place] [phone] Jun, Irritable bowel syndrome wit h diarrhea K58.0 [place] [address] [facility] [id number] [address] [place] [id number] May, Chronic pain G89.29 [place] [address] [facility] [id number] [address] [place] [id number] May, Type 2 diabetes mellitus wit h hyperglycemia E11.65 and Neuropathy G62.9 [place] [address] [facility] [id number] [address] [place] [address] May, Chronic pain G89.29 [place] [address] [facility] [id number] [address] [place] [phone] Apr, Poison maryam dermatitis L23.7 [place] [address] [facility] [id number] [address] [place] [address] Apr, Chronic pain G89.29 [place] [address] [place] [id number] [address] [place] [address] March, Type 2 diabetes mellitus wit h hyperglycemia E11.65 [facility] [address] [facility] [id number] [address] [place] [address] March, Chronic pain G89.29 [facility] [address] [facility] [id number] [address] [place] [phone] March, [address] [place] [address] Feb, [facility] [address] [facility] [id number] [address] [place] [address] Feb, Other chronic pain G89.29 an d Chronic pain G89.29 [facility] [address] [facility] [id number] [address] [place] [id number] Jan, Mixed hyperlipidemia E78.2 [facility] [address] [facility] [id number] [address] [place] [phone] Jan, Chronic pain G89.29 [facility] [address] [facility] [id number] [address] [place] [id number] Jan, Type 2 diabetes mellitus wit h hyperglycemia E11.65 ; Mixed hyperlipidemia E78.2 ; 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.4 ; Acquired hypothyroidism E03.9 and Essential (primary) hypertension I10 [facility] [address] [facility] [id number] [address] [place] [address] Dec, Chronic pain G89.29 [facility] [address] [facility] [id number] [address] [place] [address] Nov, Chronic pain G89.29 [facility] [address] [facility] [id number] [address] [place] [id number] Nov, [facility] [address] [facility] [id number] [address] [place] [address] Oct, Chronic pain G89.29 [facility] [address] [facility] [id number] [address] [place] [phone] Oct, [place] [address] [facility] [id number] [address] [place] [phone] Sep, [place] [address] [place] [id number] [address] [place] [address] Sep, Type 2 diabetes mellitus wit h hyperglycemia E11.65 [place] [address] [place] [id number] [place] [address] Sep, Chronic pain G89.29 [place] [address] [place] [id number] [address] [place] [phone] Sep, [place] [address] [place] [id number] [place] [address] Sep, Type 2 diabetes mellitus wit h hyperglycemia E11.65 ; Irritable bowel syndrome with diarrhea K58.0 ; Gastroparesis K31.84 ; 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 and Dermatitis L30.9 [place] [address] [place] [address] Aug, Chronic pain G89.29 [place] [address] [address] Jul, Chronic pain G89.29 [place] [address] [address] Jun, Type 2 diabetes mellitus wit h hyperglycemia E11.65 ; Neuropathy G62.9 ; Recurrent major depressive disorder, in partial remission F33.41 ; Chronic pain G89.29 and Hypertriglyceridemia E78.1 [place] [address] [place] [id number] [place] [phone] Jun, Hypothyroid E03.9 [place] [address] [place] [id number] [place] [phone] Jun, Major depressive disorder, r ecurrent episode, moderate F33.1 and Anxiety disorder, unspecified type F41.9 [place] [address] [place] [id number] [address] [place] [phone] Jun, [facility] [address] [facility] [id number] [address] [place] [id number] Jun, Type 2 diabetes mellitus wit h hyperglycemia E11.65 ; FPC 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 Z79.4 ; Recurrent major depressive disorder, in partial remission F33.41 ; Hypothyroid E03.9 ; Candidal dermatitis B37.2 and Weakness generalized R53.1 [place] [address] [facility] [id number] [address] [place] [address] May, [facility] [address] [place] [id number] [place] [phone] May, [place] [address] [place] [id number] [place] [phone] May, [place] [address] [place] [id number] [place] [phone] May, Generalized abdominal pain R 10.84 and Candidal dermatitis B37.2 [place] [address] [place] [id number] [address] [place] [phone] May, [place] [address] [place] [id number] [place] [phone] May, [place] [address] [place] [id number] [place] [address] May, Nodular radiologic density R 93.8 ; Weight loss, unintentional R63.4 and Pulmonary emphysema, unspecified emphysema type J43.9 [place] [address] [place] [id number] [place] [address] May, Chronic pain G89.29 [place] [address] [place] [id number] [place] [phone] May, Syncope and collapse R55 ; C hronic fatigue R53.[address] lung screening R91.8 [place] [address] [place] [id number] [place] [phone] May, [facility] [address] [facility] [id number] [address] [place] [id number] Apr, Chronic fatigue R53.82 ; Abn ormal chest CT R93.8 ; Elevated erythrocyte sedimentation rate R70.0 ; Hypothyroid E03.9 and Recurrent major depressive disorder, in partial remission F33.41 [facility] [address] [facility] [id number] [address] [place] [phone] Apr, Hypothyroid E03.9 [facility] [address] [facility] [id number] [address] [place] [phone] Apr, Depression F32.9 [facility] [address] [facility] [id number] [address] [place] [phone] Apr, [facility] [address] [facility] [id number] [address] [place] [phone] March, [facility] [address] [facility] [id number] [address] [place] [phone] March, Hypothyroid E03.9 [facility] [address] [facility] [id number] [address] [place] [phone] March, Diabetes mellitus E11.9 and Hypothyroid E03.9 [facility] [address] [facility] [id number] [address] [place] [phone] March, Diabetes mellitus E11.9 [facility] [address] [facility] [id number] [address] [place] [phone] March, Hypothyroid E03.9 and Elevat ed liver enzymes R74.8 [facility] [address] [facility] [id number] [address] [place] [address] March, Type 2 diabetes mellitus wit h hyperglycemia E11.65 ; FPC 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 Z79.4 ; Pulmonary emphysema, unspecified emphysema type J43.9 ; Hypothyroid E03.9 ; Neuropathy G62.9 ; Mixed hyperlipidemia E78.2 ; Chronic pain G89.29 ; Gastroesophageal reflux disease with esophagitis K21.0 ; Irritable bowel syndrome with diarrhea K58.0 ; Overactive bladder N32.81 and Recurrent major depressive disorder, in partial remission F33.41 [place] [address] [place] [id number] [address] [place] [id number] Feb, Chronic pain G89.29 [place] [address] [place] [id number] [address] [place] [id number] Feb, Type 2 diabetes mellitus wit h hyperglycemia E11.65 and Skin lesion of scalp L98.9 [place] [address] [place] [id number] [place] [id number] Feb, [place] [address] [place] [id number] [place] [id number] Jan, Type 2 diabetes mellitus wit h hyperglycemia E11.65 ; FPC 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 Z79.4 ; Essential (primary) hypertension I10 ; Pulmonary emphysema, unspecified emphysema type J43.9 ; Chronic pain G89.29 ; Controlled substance agreement signed Z79.899 ; Hypothyroid E03.9 ; Neuropathy G62.9 ; Gastroesophageal reflux disease with esophagitis K21.0 ; Overactive bladder N32.81 ; Depression F32.9 and Irritable bowel syndrome with diarrhea K58.0 [place] [address] [place] [id number] [address] [place] [id number] Jan, [place] [address] [place] [id number] [place] [phone] Jan, Controlled substance agreeme nt signed Z79.899 [place] [address] [place] [id number] [place] [address] Dec, Type 2 diabetes mellitus wit h hyperglycemia E11.65 ; Controlled substance agreement signed Z79.899 ; FPC 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 Z79.4 ; Essential (primary) hypertension I10 ; Hypothyroid E03.9 ; Neuropathy G62.9 ; Depression F32.9 ; Mixed hyperlipidemia E78.2 ; Irritable bowel syndrome with diarrhea K58.0 ; Gastroesophageal reflux disease with esophagitis K21.0 ; Thrombocytosis D47.3 ; Current non-adherence to medical treatment Z91.19 and Overweight (BMI 25.0-29.9) E66.3 [facility] [address] [facility] [id number] [address] [place] [id number] Dec, Controlled substance agreeme nt signed Z79.899 [facility] [address] [facility] [id number] [address] [place] [id number] Nov, Type 2 diabetes mellitus wit h hyperglycemia E11.65 and Current non- adherence to medical treatment Z91.19 [facility] [address] [facility] [id number] [address] [place] [phone] Nov, [facility] [address] [place] [id number] [address] [place] [phone] Nov, Chronic pain G89.29 [place] [address] [place] [id number] [address] [place] [phone] Nov, [place] [address] [place] [id number] [address] [place] [address] Nov, Hypothyroid E03.9 [facility] [address] [facility] [id number] [address] [place] [phone] Nov, Hypothyroid E03.9 [place] [address] [place] [id number] [address] [place] [phone] Nov, Pulmonary emphysema, unspeci fied emphysema type J43.9 and Irritable bowel syndrome with diarrhea K58.0 [place] [address] [place] [id number] [place] [phone] Oct, [facility] [address] [place] [id number] [place] [phone] Oct, [place] [id number] [place] [phone] Oct, [facility] [address] [place] [id number] [place] [phone] Oct, [place] [address] [place] [id number] [place] [address] Oct, Chronic pain G89.29 [place] [address] [address] Oct, Diabetes mellitus E11.9 ; De pression F32.9 ; Mixed hyperlipidemia E78.2 ; Hypotension, unspecified hypotension type I95.9 ; Pulmonary emphysema, unspecified emphysema type J43.9 and Weight loss, unintentional R63.4 [place] [address] [address] Oct, Chronic pain G89.29 [place] [address] [address] Sep, Chronic pain G89.29 [place] [address] [address] Sep, Hypothyroid E03.9 and Diabet es mellitus E11.9 [place] [address] [address] Aug, Type 2 diabetes mellitus wit h hyperglycemia E11.65 ; FPC 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 Z79.4 ; Essential (primary) hypertension I10 ; Hypothyroid E03.9 ; Neuropathy G62.9 ; Chronic pain G89.29 ; Mixed hy perlipidemia E78.2 and Encounter for immunization Z23 [place] [address] [address] Aug, Chronic pain G89.29 [place] [address] [address] Aug, Overactive bladder N32.81 ; Diabetes mellitus E11.9 and Chronic pain G89.29 [place] [address] [address] Jul, [place] [address] [address] Jun, [place] [address] [address] Jun, [place] [address] [facility] [id number] [address] [place] [address] Jun, Hypothyroid E03.9 [facility] [address] [facility] [id number] [address] [place] [phone] Jun, Diabetes mellitus E11.9 ; Hy pothyroid E03.9 ; Neuropathy G62.9 ; Chronic pain G89.29 and Neck mass R22.1 [facility] [address] [id number] [address] [place] [id number] Apr, [facility] [address] [facility] [id number] [address] [place] [id number] Apr, Acute cystitis without hemat uria N30.00 [facility] [address] [facility] [id number] [address] [place] [id number] March, [facility] [address] [facility] [id number] [address] [place] [phone] March, [facility] [address] [facility] [id number] [address] [place] [address] March, Near syncope R55 [facility] [address] [facility] [id number] [address] [place] [id number] Feb, [facility] [address] [facility] [id number] [address] [place] [address] Feb, Chronic pain G89.29 [facility] [address] [facility] [id number] [address] [place] [id number] Feb, [facility] [address] [facility] [id number] [address] [place] [id number] Feb, [facility] [address] [facility] [id number] [address] [place] [address] Jan, Chronic pain G89.29 [facility] [address] [facility] [id number] [address] [place] [phone] Jan, [facility] [address] [facility] [id number] [address] [place] [phone] 16 Jan, 2017 [facility] [address] [place] [id number] [address] [place] [id number] 14 Jan, 2017 Diabetes mellitus E11.9 ; Hy pothyroid E03.9 ; GERD (gastroesophageal reflux disease) K21.9 ; Insomnia G47.00 ; Functional 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 ; Neuropathy G62.9 ; Depression F32.9 ; Chronic pain G89.29 ; Irritable bowel syndrome with diarrhea K58.0 ; Overactive bladder N32.81 ; Mixed hyperlipidemia E78.2 and Bronchitis J40 [facility] [address] [facility] [id number] [address] [place] [id number] Dec, [facility] [address] [place] [id number] [place] [phone] 24 Dec, 2016 [facility] [address] [place] [id number] [place] [id number] Dec, [facility] [address] [place] [id number] [place] [address] Dec, [facility] [address] [facility] [id number] [address] [place] [phone] Dec, Chronic pain G89.29 [facility] [address] [facility] [id number] [address] [place] [id number] 23 Dec, 2016 [facility] [address] [place] [id number] [place] [id number] 20 Dec, 2016 [facility] [address] [place] [id number] [address] [place] [id number] 17 Dec, 2016 Type 2 diabetes mellitus wit h foot ulcer E11.621 [facility] [address] [place] [id number] [address] [place] [id number] 17 Dec, 2016 Type 2 diabetes mellitus wit h foot ulcer E11.621 [facility] [address] [place] [id number] [address] [place] [address] 14 Dec, 2016 HTN (hypertension) I10 ; Dep ression F32.9 ; Type 2 diabetes mellitus with foot ulcer E11.621 ; Functional 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 ; Irritable bowel syndrome with diarrhea K58.0 ; Chronic pain G89.29 ; Insomnia G47.00 ; Overactive bladder N32.81 ; Mixed hyperlipidemia E78.2 ; Gastroesophageal reflux disease with esophagitis K21.0 and Acquired hypothyroidism E03.9 [place] [address] [place] [id number] [place] [phone] Nov, [place] [address] [place] [id number] [place] [phone] Oct, [place] [address] [place] [id number] [place] [phone] Oct, [place] [address] [place] [id number] [place] [phone] Oct, [place] [address] [place] [id number] [place] [id number] Sep, Functional 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 ; HTN (hypertension) I10 ; Diabetes mellitus E11.9 ; Depression F32.9 ; Overactive bladder N32.81 ; Mixed hyperlipidemia E78.2 ; Gastroesophageal reflux disease without esophagitis K21.9 ; Chronic pain G89.29 ; Insomnia G47.00 and Acquired hypothyroidism E03.9 [place] [address] [place] [id number] [place] [id number] Sep, [place] [address] [place] [id number] [place] [phone] Aug, Encounter for immunization Z 23 [place] [address] [place] [id number] [place] [phone] Aug, [place] [address] [place] [id number] [place] [id number] Jul, [place] [address] [place] [id number] [place] [id number] Jun, Type 2 diabetes mellitus wit hout complications E11.9 ; HTN (hypertension) I10 ; Hypothyroid E03.9 ; Neuropathy G62.9 ; Depression F32.9 ; Chronic pain G89.29 ; GERD (gastroesophageal reflux disease) K21.9 ; Insomnia G47.00 ; Overactive bladder N32.81 ; Mixed hyperlipidemia E78.2 ; Diarrhea of infectious origin A09 and Environmental allergies Z91.09 [place] [id number] [phone] Apr, [place] [address] [phone] March, Hypothyroidism, unspecified E03.9 and Mixed hyperlipidemia E78.2 [place] [address] [id number] March, Diabetes mellitus E11.9 ; HT N (hypertension) I10 ; Hypothyroid E03.9 ; Depression F32.9 ; Overactive bladder N32.81 ; Other chronic pain G89.29 ; Lumbago with sciatica, unspecified side M54.40 ; Environmental allergies Z91.09 and Gastroesophageal reflux disease, esophagitis presence not specified K21.9 [place] [address] [id number] March, [place] [address] [address] [address] Jan, HTN (hypertension) I10 ; Hyp othyroid E03.9 ; Neuropathy G62.9 ; Diabetes mellitus E11.9 ; Chronic pain G89.29 ; GERD (gastroesophageal reflux disease) K21.9 ; Overactive bladder N32.81 and Depression F32.9 [place] [address] [address] 12 Dec, 2015 Ear pain, left H92.02 ; HTN (hypertension) I10 ; Hypothyroid E03.9 ; Neuropathy G62.9 ; Diabetes mellitus E11.9 ; Depression F32.9 ; GERD (gastroesophageal reflux disease) K21.9 ; Insomnia G47.00 and Overactive bladder N32.81 [place] [address] [address] Nov, Overactive bladder N32.81 an d Chronic pain G89.29 [place] [address] [address] Nov, Kidney failure N19 [place] [address] [address] Nov, [place] [address] [address] Nov, [place] [address] [address] Nov, Diabetes mellitus E11.9 ; De pression F32.9 ; Chronic pain G89.29 ; GERD (gastroesophageal reflux disease) K21.9 ; Insomnia G47.00 ; HTN (hypertension) I10 ; Hypothyroid E03.9 ; COPD (chronic obstructive pulmonary disease) J44.9 ; Bladder incontinence R32 and Incontinence R32 [place] [address] [address] Sep, Type 2 diabetes mellitus wit h foot ulcer E11.621 and Chromosomal abnormality, 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 [place] [address] [address] Sep, [place] [address] [address] Aug, [place] [address] [address] Aug, [place] [address] [address] Aug, HTN (hypertension) I10 ; Enc ounter for immunization Z23 ; Hypothyroid E03.9 ; Neuropathy G62.9 ; Diabetes mellitus E11.9 ; Depression F32.9 ; Chronic pain G89.29 ; GERD (gastroesophageal reflux disease) K21.9 ; Insomnia G47.00 and COPD (chronic obstructive pulmonary disease) J44.9 [place] [address] [place] [address] Jun, [facility] [address] [address] Jun, [facility] [address] [address] May, Essential hypertension, ivis gn 401.1 ; Unspecified hypothyroidism 244.9 ; Insomnia, unspecified 780.52 ; Shortness of breath 786.05 ; Depression 311 ; COPD (chronic obstructive pulmonary disease) 496 ; GERD (gastroesophageal reflux disease) 530.81 and Diabetes 1.5, 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 [facility] [address] [address] May, [facility] [address] [address] May, [facility] [address] [address] May, Shortness of breath 786.05 ; Essential hypertension, benign 401.1 ; Diabetes mellitus 250.00 ; Hyperlipidemia 272.4 ; Hypothyroid 244.9 ; Insomnia 780.52 and Cough 786.2 [facility] [address] [address] Apr, [facility] [address] [address] March, Shortness of breath 786.05 ; Nausea with vomiting 787.01 ; Essential hypertension, benign 401.1 ; Diabetes mellitus 250.00 ; Hyperlipidemia 272.4 and Hypothyroid 244.9 [facility] [address] [address] Feb, [facility] [address] [address] Feb, [facility] [address] [address] Jan, [facility] [address] [place] [address] 24 Jan, 2015 [facility] [address] [id number] [address] [place] [address], [place] [address] Jan, [facility] [address] [id number] [address] [place] [address], [place] [address] Jan, [facility] [address] [id number] [address] [place] [address], [place] [address] Jan, 2014 [facility] [address] [id number] [address] [place] [address], [place] [address] 05 Jan, 2015 [facility] [address] [id number] [address] [place] [address], [place] [address] Jan, [facility] [address] [id number] [address] [place] [address], [place] [address] Jan, [facility] [address] [id number] [address] [place] [address], [place] [address] Jan, [facility] [address] [id number] [address] [place] [address], [place] [address] Jan, [facility] [address] [id number] [address] [place] [address], [place] [address] Dec, 2014 [facility] [address] [id number] [address] [place] [address], [place] [address] Dec, 2014 [facility] [address] [id number] [address] [place] [address], [place] [address] Dec, 2014 [facility] [address] [id number] [address] [place] [address], [place] [address] Dec, 2014 [facility] [address] [id number] [address] [place] [address], [place] [address] Dec, 2014 [facility] [address] [id number] [address] [place] [address], [place] [address] Dec, 2014 [facility] [address] [id number] [address] [place] [address], [place] [address] Dec, [facility] [address] [id number] [facility] [place] [address] Dec, 2014 [facility] [address] [id number] [address] [place] [address], [place] [address] Dec, 2014 [facility] [address] [id number] [address] [place] [address], [place] [address] Dec, 2014 [facility] [address] [id number] [address] [place] [address], [place] [address] Oct, [facility] [address] [id number] [address] [place] [address], [place] [address] Oct, [facility] [address] [id number] [address] [place] [address], [place] [address] Oct, [facility] [address] [id number] [address] [place] [address], [place] [address] Oct, [facility] [address] [id number] [address] [place] [address], [place] [address] Oct, [facility] [address] [id number] [address] [place] [address], [place] [address] Oct, [facility] [address] [id number] [address] [place] [address], [place] [address] Oct, [facility] [address] [id number] [address] [place] [address], [place] [address] Oct, [facility] [address] [id number] [address] [place] [address], [place] [address] Oct, [facility] [address] [id number] [address] [place] [address], [place] [address] Oct, [facility] [address] [id number] [address] [place] [address], [place] [address] Oct, [facility] [address] [id number] [address] [place] [address], [place] [address] Oct, [facility] [address] [id number] [address] [place] [address], [place] [address] Oct, [facility] [address] [id number] [address] [place] [address], [place] [address] Oct, [facility] [address] [id number] [address] [place] [address], [place] [address] Sep, [facility] [address] [id number] [address] [place] [address], [place] [address] Sep, [facility] [address] [id number] [address] [place] [address], [place] [address] Sep, [facility] [address] [id number] [address] [place] [address], [place] [address] Sep, [facility] [address] [id number] [address] [place] [address], [place] [address] Sep, [facility] [address] [id number] [address] [place] [address], [place] [address] Sep, [facility] [address] [id number] [address] [place] [address], [place] [address] Sep, [facility] [address] [id number] [address] [place] [address], [place] [address] Sep, [facility] [address] [id number] [address] [place] [address], [place] [address] Sep, [facility] [address] [id number] [address] [place] [address], [place] [address] Aug, [facility] [address] [id number] [address] [place] [address], [place] [address] Aug, [facility] [address] [id number] [address] [place] [address], [place] [address] Aug, [facility] [address] [id number] [address] [place] [address], [place] [address] Aug, [facility] [address] [id number] [address] [place] [address], [place] [address] 16 Aug, 2014 [facility] [address] [id number] [address] [place] [address], [place] [address] Aug, [facility] [address] [id number] [address] [place] [address], [place] [address] Aug, [facility] [address] [id number] [address] [place] [address], [place] [address] Aug, [facility] [address] [id number] [address] [place] [address], [place] [address] Aug, [facility] [address] [id number] [address] [place] [address], [place] [address] 29 Jul, 2014 [facility] [address] [id number] [address] [place] [address], [place] [address] 29 Jul, 2014 [facility] [address] [id number] [address] [place] [address], [place] [address] Jul, [facility] [address] [id number] [address] [place] [address], [place] [address] Jul, 2013 [facility] [address] [id number] [address] [place] [address], [place] [address] Jul, [facility] [address] [id number] [address] [place] [address], [place] [address] Jul, [facility] [address] [id number] [address] [place] [address], [place] [address] Jul, [facility] [address] [id number] [address] [place] [address], [place] [address] Jul, 2013 [facility] [address] [id number] [address] [place] [address], [place] [address] Jul, [facility] [address] [id number] [address] [place] [address], [place] [address] Jul, [facility] [address] [id number] [address] [place] [address], [place] [address] Jun, [facility] [address] [id number] [address] [place] [address], [place] [address] Jun, [facility] [address] [id number] [facility] [place] [address] Jun, [facility] [address] [id number] [address] [place] [address], [place] [address] Jun, [facility] [address] [id number] [facility] [place] [address] Jun, [facility] [address] [id number] [address] [place] [address], [place] [address] Jun, [facility] [address] [id number] [address] [place] [address], [place] [address] Jun, [facility] [address] [id number] [address] [place] [address], [place] [address] Jun, [facility] [address] [id number] [address] [place] [address], [place] [address] Jun, [facility] [address] [id number] [address] [place] [address], [place] [address] Jun, [facility] [address] [id number] [address] [place] [address], [place] [address] Jun, [facility] [address] [id number] [address] [place] [address], [place] [address] Jun, [facility] [address] [id number] [address] [place] [address], [place] [address] May, [facility] [address] [id number] [address] [place] [address], [place] [address] May, [facility] [address] [id number] [address] [place] [address], [place] [address] May, [facility] [address] [id number] [address] [place] [address], [place] [address] May, [facility] [address] [id number] [address] [place] [address], [place] [address] May, [facility] [address] [id number] [facility] [place] [address] May, [facility] [address] [id number] [address] [place] [address], [place] [address] March, [facility] [address] [id number] [address] [place] [address], [place] [address] March, [facility] [address] [id number] [address] [place] [address], [place] [address] March, [facility] [address] [id number] [address] [place] [address], [place] [address] March, [facility] [address] [id number] [address] [place] [address], [place] [address] March, [facility] [address] [id number] [address] [place] [address], [place] [address] March, [facility] [address] [id number] [address] [place] [address], [place] [address] Feb, [facility] [address] [id number] [address] [place] [address], [place] [address] Feb, [facility] [address] [id number] [address] [place] [address], [place] [address] Feb, [facility] [address] [id number] [address] [place] [address], [place] [address] Feb, [facility] [address] [id number] [address] [place] [address], [place] [address] Jan, [facility] [address] [id number] [address] [place] [address], [place] [address] Jan, [facility] [address] [id number] [address] [place] [address], [place] [address] Jan, [facility] [address] [id number] [address] [place] [address], [place] [address] Jan, [facility] [address] [id number] [address] [place] [address], [place] [address] Jan, [facility] [address] [id number] [address] [place] [address], [place] [address] Jan, [facility] [address] [id number] [address] [place] [address], [place] [address] Jan, [facility] [address] [id number] [address] [place] [address], [place] [address] Jan, [facility] [address] [id number] [address] [place] [address], [place] [address] Jan, [facility] [address] [id number] [address] [place] [address], [place] [address] Jan, [facility] [address] [id number] [address] [place] [address], [place] [address] Jan, [facility] [address] [id number] [address] [place] [address], [place] [address] Jan, [facility] [address] [id number] [address] [place] [address], [place] [address] Dec, [facility] [address] [id number] [address] [place] [address], [place] [address] Dec, [facility] [address] [id number] [address] [place] [address], [place] [address] Dec, [facility] [address] [id number] [address] [place] [address], [place] [address] Dec, [facility] [address] [id number] [address] [place] [address], [place] [address] Dec, [facility] [address] [id number] [address] [place] [address], [place] [address] Dec, [facility] [address] [id number] [address] [place] [address], [place] [address] Nov, [facility] [address] [id number] [address] [place] [address], [place] [address] Nov, [facility] [address] [id number] [address] [place] [address], [place] [address] 13 Oct, 2013 [facility] [address] [id number] [address] [place] [address], [place] [address] Oct, [facility] [address] [id number] [address] [place] [address], [place] [address] Oct, [facility] [address] [id number] [address] [place] [address], [place] [address] Oct, [facility] [address] [id number] [address] [place] [address], [place] [address] Oct, [facility] [address] [id number] [address] [place] [address], [place] [address] Oct, [facility] [address] [id number] [address] [place] [address], [place] [address] Sep, [facility] [address] [id number] [address] [place] [address], [place] [address] Sep, [facility] [address] [id number] [address] [place] [address], [place] [address] Sep, [facility] [address] [id number] [address] [place] [address], [place] [address] Sep, [facility] [address] [id number] [address] [place] [address], [place] [address] Aug, [facility] [address] [id number] [address] [place] [address], [place] [address] Aug, [facility] [address] [id number] [address] [place] [address], [place] [address] 08 Aug, 2013 [facility] [address] [id number] [address] [place] [address], [place] [address] 17 Jul, 2013 [facility] [address] [id number] [address] [place] [address], [place] [address] 14 Jul, 2013 [facility] [address] [id number] [address] [place] [address], [place] [address] Jul, [facility] [address] [id number] [address] [place] [address], [place] [address] Jun, [facility] [address] [id number] [address] [place] [address], [place] [address] Jun, [facility] [address] [id number] [address] [place] [address], [place] [address] Jun, [facility] [address] [id number] [address] [place] [address], [place] [address] Apr, [facility] [address] [id number] [address] [place] [address], [place] [address] Apr, [facility] [address] [id number] [address] [place] [address], [place] [address] March, [facility] [address] [id number] [address] [place] [address], [place] [address] March, [facility] [address] [id number] [address] [place] [address], [place] [address] March, [facility] [address] [id number] [address] [place] [address], [place] [address] March, [facility] [address] [id number] [address] [place] [address], [place] [address] Feb, [facility] [address] [id number] [address] [place] [address], [place] [address] Jan, [facility] [address] [id number] [address] [place] [address], [place] [address] Dec, [facility] [address] [id number] [address] [place] [address], [place] [address] Dec, [facility] [address] [id number] [address] [place] [address], [place] [address] Dec, [facility] [address] [id number] [address] [place] [address], [place] [address] Nov, [facility] [address] [id number] [address] [place] [address], [place] [address] 13 Oct, 2012 [facility] [address] [id number] [address] [place] [address], [place] [id number] 13 Oct, 2012 [facility] [address] [id number] [address] [place] [address], [place] [address] Sep, [facility] [address] [id number] [address] [place] [address], [place] [address] Sep, [facility] [address] [id number] [address] [place] [address], [place] [address] Sep, [facility] [address] [id number] [address] [place] [address], [place] [address] Sep, [facility] [address] [id number] [address] [place] [address], [place] [address] Sep, [facility] [address] [id number] [address] [place] [address], [place] [address] Sep, [facility] [address] [id number] [address] [place] [address], [place] [address] Sep, [facility] [address] [id number] [address] [place] [address], [place] [address] Aug, [facility] [address] [id number] [address] [place] [address], [place] [address] 16 Aug, 2012 [facility] [address] [id number] [address] [place] [address], [place] [address] Aug, [facility] [address] [id number] [address] [place] [address], [place] [address] Aug, [facility] [address] [id number] [address] [place] [address], [place] [address] Aug, [facility] [address] [id number] [address] [place] [address], [place] [address] 08 Aug, 2012 [facility] [address] [id number] [address] [place] [address], [place] [address] 07 Aug, 2012 [facility] [address] [id number] [address] [place] [address], [place] [address] Aug, [facility] [address] [id number] [address] [place] [address], [place] [address] Jul, [facility] [address] [id number] [address] [place] [address], [place] [address] Jul, [facility] [address] [id number] [address] [place] [address], [place] [address] Jun, [facility] [address] [id number] [address] [place] [address], [place] [address] May, [facility] [address] [id number] [address] [place] [address], [place] [address] Apr, [facility] [address] [id number] [address] [place] [address], [place] [address] Apr, [facility] [address] [id number] [address] [place] [address], [place] [address] Apr, [facility] [address] [id number] [address] [place] [address], [place] [address] March, [facility] [address] [id number] [address] [place] [address], [place] [address] March, [facility] [address] [id number] [address] [place] [address], [place] [address] March, [facility] [address] [id number] [address] [place] [address], [place] [address] March, [facility] [address] [id number] [address] [place] [address], [place] [address] March, [facility] [address] [id number] [address] [place] [address], [place] [address] March, [facility] [address] [id number] [address] [place] [address], [place] [address] March, [facility] [address] [id number] [address] [place] [address], [place] [address] Jan, [facility] [address] [id number] [address] [place] [address], [place] [address] Jan, [facility] [address] [id number] [address] [place] [address], [place] [address] 20 Jan, 2012 [facility] [address] [id number] [address] [place] [address], [place] [address] 13 Jan, 2012 [facility] [address] [id number] [address] [place] [address], [place] [address] Jan, [facility] [address] [id number] [address] [place] [address], [place] [id number] 08 Dec, 2011 [facility] [address] [id number] [address] [place] [address], [place] [address] 06 Dec, 2011 [facility] [address] [id number] [address] [place] [address], [place] [address] Nov, [facility] [address] [id number] [address] [place] [address], [place] [address] Nov, [facility] [address] [id number] [address] [place] [address], [place] [address] Nov, [facility] [address] [id number] [address] [place] [address], [place] [address] Nov, [facility] [address] [id number] [address] [place] [address], [place] [address] Oct, [facility] [address] [id number] [address] [place] [address], [place] [address] Oct, [facility] [address] [id number] [address] [place] [address], [place] [address] 14 Sep, 2011 [facility] [address] [id number] [address] [place] [address], [place] [address] 10 Sep, 2011 [facility] [address] [id number] [address] [place] [address], [place] [address] 10 Sep, 2011 [facility] [address] [id number] [address] [place] [address], [place] [address] 11 May, 2011 [facility] [address] [id number] [address] [place] [address], [place] [address] Nov, [facility] [address] [id number] [address] [place] [address], [place] [address] 29 Oct, 2010 [facility] [address] [id number] [address] [place] [address], [place] [address] 14 Oct, 2010 [facility] [address] [id number] [address] [place] [address], [place] [id number] 08 Oct, 2010 [facility] [address] [id number] [address] [place] [address], [place] [id number] 15 Sep, 2010 [facility] [address] [id number] [address] [place] [address], [place] [address] Sep, [facility] [address] [id number] [address] [place] [address], [place] [address] Aug, [facility] [address] [id number] [address] [place] [address], [place] [address] March, [facility] [address] [id number] [address] [place] [address], [place] [address] Oct, [facility] [address] [id number] [address] [place] [address], [place] [address] 17 Oct, 2009 [facility] [address] [id number] [address] [place] [address], [place] [address] Oct, [facility] [address] [id number] [address] [place] [address], [place] [address] Oct, [facility] [address] [id number] [address] [place] [address], [place] [address] Sep, [facility] [address] [id number] [address] [place] [address], [place] [address] Sep, [facility] [address] [id number] [address] [place] [address], [place] [address] Sep, [facility] [address] [facility] [id number] [address] [place] [id number] Aug, [facility] [address] [facility] [id number] [address] [place] [id number] Aug, [facility] [address] [facility] [id number] [address] [place] [id number] Aug, [facility] [address] [facility] [id number] [address] [place] [id number] Jan, IMMUNIZATIONS No Known Immunizations SOCIAL HISTORY [...]
--- OUTSIDE RECORDS SUMMARY | 2020-06-13 16:01 | XMS REPORT ---
Author Author Jah Monk Organization [facility] Address [address] [place] [address] Care Team Providers Care Md Pediatric Allergist Name Role Phone STEVEN Monk Unavailable PROBLEMS Type Condition ICD9-CM Code RHT51-UZ Code Onset Dates Condition S tatus SNOMED Code Problem Chronic pain G89.29 Active 3746704 1 Problem Hypothyroid E03.9 Active 80118648 Problem Neuropathy G62.9 Active 041054066 Problem Mixed hyperlipidemia E78.2 Active 586959807 Problem Overactive bladder N32.81 Active 2 01545383 Problem skilled nursing 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 Z79.4 Active 731552645 Problem Type 2 diabetes mellitus with hyperglycemia E11.65 Active 09605681 Problem Essential (primary) hypertension I10 Active 87224952 Problem Major depressive disorder, recurrent, in full remission F33.42 Active 98287891 Problem Irritable bowel syndrome with diarrhea K58.0 Active 429317767 Problem skilled nursing (current) use of insulin Z79.4 Active 320451426 Problem Gastroesophageal reflux disease with esophagitis K 21.0 Active 909365460 Problem Anxiety disorder, unspecified type F41.9 Active 309401496 Problem Gastroparesis K31.84 Active 853767 006 Problem 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 Active 501654034 Problem Chronic obstructive pulmonary disease, unspecified COPD ty pe J44.9 Active 54807487 ALLERGIES No Information ENCOUNTERS Encounter Location Date Diagnosis [facility] [id number] [place] [address] Jan, Type 2 diabetes mellitus with hyperglyce regina E11.65 ; skilled nursing (current) use of insulin Z79.4 and Hyperkalemia E87.5 [facility] [id number] [place] [address] Jan, Type 2 diabetes mellitus with diabetic a utonomic (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 ; Hypothyroid E03.9 ; Dyshydrosis L30.1 and Irritable bowel syndrome with diarrhea K58.0 [place] [address] [address] Jan, Chronic pain G89.29 [place] [address] [address] Dec, Chronic pain G89.29 [place] [address] [address] Dec, [place] [address] [address] Dec, [place] [address] [address] Nov, Chronic pain G89.29 [place] [address] [address] Oct, Chronic pain G89.29 [place] [address] [address] Sep, Chronic pain G89.29 [place] [address] [address] Sep, Type 2 diabetes mellitus with diabetic a utonomic (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 ; Irritable bowel syndrome with diarrhea K58.0 ; Essential (primary) hypertension I10 and Encounter for immunization Z23 [place] [address] [address] Aug, Chronic pain G89.29 [place] [address] [address] Aug, [place] [address] [address] Jul, Chronic pain G89.29 [place] [address] [address] Jun, Other chronic pain G89.29 [place] [address] [address] Jun, [place] [address] [address] Jun, Chronic pain G89.29 [place] [address] [address] Jun, Neuropathy G62.9 [place] [address] [address] Jun, Encounter for Medicare annual wellness e xam Z00.00 ; Type 2 diabetes mellitus with hyperglycemia E11.65 ; Mixed hyperlipidemia E78.2 ; Hypothyroid E03.9 ; Gastroesophageal reflux disease with esophagitis K21.0 ; Essential (primary) hypertension I10 ; Major depressive disorder, recurrent, in full remission F33.42 ; Chronic obstructive pulmonary disease, unspecified COPD type J44.9 ; Neuropathy G62.9 and Encounter for immunization Z23 [place] [address] [address] Jun, Irritable bowel syndrome with diarrhea K 58.0 [place] [address] [address] May, Chronic pain G89.29 [place] [address] [address] May, Type 2 diabetes mellitus with hyperglyce regina E11.65 and Neuropathy G62.9 [place] [address] [address] May, Chronic pain G89.29 [place] [address] [address] Apr, Poison maryam dermatitis L23.7 [place] [address] [address] Apr, Chronic pain G89.29 [place] [address] [address] March, Type 2 diabetes mellitus with hyperglyce regina E11.65 [place] [address] [address] March, Chronic pain G89.29 [facility] [id number] [place] [address] March, [address] [place] [address] Feb, [facility] [id number] [place] [address] Feb, Other chronic pain G89.29 and Chronic pa in G89.29 [facility] [id number] [place] [address] Jan, Mixed hyperlipidemia E78.2 [facility] [address] [address] Jan, Chronic pain G89.29 [facility] [address] [address] Jan, Type 2 diabetes mellitus with hyperglyce regina E11.65 ; Mixed hyperlipidemia E78.2 ; skilled nursing 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 Z79.4 ; Acquired hypothyroidism E03.9 and Essential (primary) hypertension I10 [facility] [address] [address] Dec, Chronic pain G89.29 [facility] [id number] [place] [address] Nov, Chronic pain G89.29 [facility] [address] [address] Nov, [facility] [address] [address] Oct, Chronic pain G89.29 [facility] [id number] [place] [address] Oct, [facility] [address] [address] Sep, [facility] [address] [address] Sep, Type 2 diabetes mellitus with hyperglyce regina E11.65 [place] [address] [address] Sep, Chronic pain G89.29 [place] [address] [address] Sep, [place] [address] [address] Sep, Type 2 diabetes mellitus with hyperglyce regina E11.65 ; Irritable bowel syndrome with diarrhea K58.0 ; Gastroparesis K31.84 ; 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 and Dermatitis L30.9 [place] [address] [address] Aug, Chronic pain G89.[address] [address] Jul, Chronic pain G89.29 [place] [address] [address] Jun, Type 2 diabetes mellitus with hyperglyce regina E11.65 ; Neuropathy G62.9 ; Recurrent major depressive disorder, in partial remission F33.41 ; Chronic pain G89.29 and Hypertriglyceridemia E78.1 [place] [address] [address] Jun, Hypothyroid E03.[address] [address] Jun, Major depressive disorder, recurrent epi sode, moderate F33.1 and Anxiety disorder, unspecified type F41.9 [place] [address] [address] Jun, [address] [address] Jun, Type 2 diabetes mellitus with hyperglyce regina E11.65 ; 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 ; Recurrent major depressive disorder, in partial remission F33.41 ; Hypothyroid E03.9 ; Candidal dermatitis B37.2 and Weakness generalized R53.1 [place] [address] [address] May, [place] [address] [address] May, [place] [address] [address] May, [place] [address] [address] May, Generalized abdominal pain R10.84 and Ca ndidal dermatitis B37.2 [place] [address] [address] May, [place] [address] [address] May, [place] [address] [address] May, Nodular radiologic density R93.8 ; Weigh t loss, unintentional R63.4 and Pulmonary emphysema, unspecified emphysema type J43.9 [place] [address] [address] May, Chronic pain G89.29 [place] [address] [address] May, Syncope and collapse R55 ; Chronic fatig ue R53.[address] lung screening R91.8 [place] [address] [address] May, [place] [address] [address] Apr, Chronic fatigue R53.82 ; Abnormal chest CT R93.8 ; Elevated erythrocyte sedimentation rate R70.0 ; Hypothyroid E03.9 and Recurrent major depressive disorder, in partial remission F33.41 [place] [address] [address] Apr, Hypothyroid E03.9 [place] [address] [address] Apr, Depression F32.9 [place] [address] [address] Apr, [place] [address] [address] March, [place] [address] [address] March, Hypothyroid E03.9 [place] [address] [address] March, Diabetes mellitus E11.9 and Hypothyroid E03.9 [place] [address] [address] March, Diabetes mellitus E11.9 [place] [address] [address] March, Hypothyroid E03.9 and Elevated liver enz ymes R74.8 [place] [address] [address] March, Type 2 diabetes mellitus with hyperglyce regina E11.65 ; 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 ; Pulmonary emphysema, unspecified emphysema type J43.9 ; Hypothyroid E03.9 ; Neuropathy G62.9 ; Mixed hyperlipidemia E78.2 ; Chronic pain G89.29 ; Gastroesophageal reflux disease with esophagitis K21.0 ; Irritable bowel syndrome with diarrhea K58.0 ; Overactive bladder N32.81 and Recurrent major depressive disorder, in partial remission F33.41 [place] [address] [address] Feb, Chronic pain G89.29 [place] [address] [address] Feb, Type 2 diabetes mellitus with hyperglyce regina E11.65 and Skin lesion of scalp L98.9 [place] [address] [address] Feb, [place] [address] [address] Jan, Type 2 diabetes mellitus with hyperglyce regina E11.65 ; skilled nursing 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 Z79.4 ; Essential (primary) hypertension I10 ; Pulmonary emphysema, unspecified emphysema type J43.9 ; Chronic pain G89.29 ; Controlled substance agreement signed Z79.899 ; Hypothyroid E03.9 ; Neuropathy G62.9 ; Gastroesophageal reflux disease with esophagitis K21.0 ; Overactive bladder N32.81 ; Depression F32.9 and Irritable bowel syndrome with diarrhea K58.0 [place] [address] [address] Jan, [place] [address] [address] Jan, Controlled substance agreement signed Z7 9.899 [place] [address] [address] Dec, Type 2 diabetes mellitus with hyperglyce regina E11.65 ; Controlled substance agreement signed Z79.899 ; 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 ; Essential (primary) hypertension I10 ; Hypothyroid E03.9 ; Neuropathy G62.9 ; Depression F32.9 ; Mixed hyperlipidemia E78.2 ; Irritable bowel syndrome with diarrhea K58.0 ; Gastroesophageal reflux disease with esophagitis K21.0 ; Thrombocytosis D47.3 ; Current non-adherence to medical treatment Z91.19 and Overweight (BMI 25.0-29.9) E66.3 [place] [address] [address] Dec, Controlled substance agreement signed Z7 9.899 [place] [address] [address] Nov, Type 2 diabetes mellitus with hyperglyce regina E11.65 and Current non- adherence to medical treatment Z91.19 [place] [address] [address] Nov, [place] [address] [address] Nov, Chronic pain G89.29 [facility] [address] [address] Nov, [facility] [address] [address] Nov, Hypothyroid E03.9 [place] [address] [address] Nov, Hypothyroid E03.9 [place] [address] [address] Nov, Pulmonary emphysema, unspecified emphyse ma type J43.9 and Irritable bowel syndrome with diarrhea K58.0 [place] [address] [address] Oct, [place] [address] [address] Oct, [place] [address] [address] Oct, [place] [address] [address] Oct, [place] [address] [address] Oct, Chronic pain G89.29 [place] [address] [address] Oct, Diabetes mellitus E11.9 ; Depression F32 .9 ; Mixed hyperlipidemia E78.2 ; Hypotension, unspecified hypotension type I95.9 ; Pulmonary emphysema, unspecified emphysema type J43.9 and Weight loss, unintentional R63.4 [place] [address] [address] Oct, Chronic pain G89.29 [place] [address] [address] Sep, Chronic pain G89.29 [place] [address] [address] Sep, Hypothyroid E03.9 and Diabetes mellitus E11.9 [place] [address] [address] Aug, Type 2 diabetes mellitus with hyperglyce regina E11.65 ; skilled nursing 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 Z79.4 ; Essential (primary) hypertension I10 ; Hypothyroid E03.9 ; Neuropathy G62.9 ; Chronic pain G89.29 ; Mixed hyperlipidemia E78.2 and Encounter for immunization Z23 [place] [address] [address] Aug, Chronic pain G89.29 [place] [address] [address] Aug, Overactive bladder N32.81 ; Diabetes alvarez litus E11.9 and Chronic pain G89.29 [place] [address] [address] Jul, [place] [address] [address] Jun, [place] [address] [address] Jun, [place] [address] [address] Jun, Hypothyroid E03.9 [place] [address] [address] Jun, Diabetes mellitus E11.9 ; Hypothyroid E0 3.9 ; Neuropathy G62.9 ; Chronic pain G89.29 and Neck mass R22.1 [place] [address] [address] Apr, [place] [address] [address] Apr, Acute cystitis without hematuria N30.00 [place] [address] [address] March, [facility] [id number] [place] [address] March, [facility] [address] [address] March, Near syncope R55 [facility] [address] [address] Feb, [facility] [address] [address] Feb, Chronic pain G89.29 [facility] [address] [address] Feb, [facility] [address] [address] Feb, [facility] [address] [address] Jan, Chronic pain G89.29 [facility] [address] [address] Jan, [facility] [address] [address] Jan, [facility] [address] [address] Jan, Diabetes mellitus E11.9 ; Hypothyroid E0 3.9 ; GERD (gastroesophageal reflux disease) K21.9 ; Insomnia G47.00 ; Functional 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 ; Neuropathy G62.9 ; Depression F32.9 ; Chronic pain G89.29 ; Irritable bowel syndrome with diarrhea K58.0 ; Overactive bladder N32.81 ; Mixed hyperlipidemia E78.2 and Bronchitis J40 [facility] [id number] [place] [address] Dec, [facility] [address] [address] Dec, [facility] [address] [address] Dec, [facility] [address] [address] 24 Dec, 2016 [facility] [address] [address] Dec, Chronic pain G89.29 [facility] [address] [address] 23 Dec, 2016 [facility] [address] [address] Dec, [facility] [address] [address] Dec, Type 2 diabetes mellitus with foot ulcer E11.621 [place] [address] [address] 17 Dec, 2016 Type 2 diabetes mellitus with foot ulcer E11.621 [place] [address] [address] 14 Dec, 2016 HTN (hypertension) I10 ; Depression F32. 9 ; Type 2 diabetes mellitus with foot ulcer E11.621 ; Functional 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 ; Irritable bowel syndrome with diarrhea K58.0 ; Chronic pain G89.29 ; Insomnia G47.00 ; Overactive bladder N32.81 ; Mixed hyperlipidemia E78.2 ; Gastroesophageal reflux disease with esophagitis K21.0 and Acquired hypothyroidism E03.9 [place] [id number] [place] [address] Nov, [place] [address] [address] Oct, [facility] [address] [address] Oct, [place] [address] [address] Oct, [facility] [address] [address] Sep, Functional 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 ; HTN (hyperte nsion) I10 ; Diabetes mellitus E11.9 ; Depression F32.9 ; Overactive bladder N32.81 ; Mixed hyperlipidemia E78.2 ; Gastroesophageal reflux disease without esophagitis K21.9 ; Chronic pain G89.29 ; Insomnia G47.00 and Acquired hypothyroidism E03.9 [place] [address] [address] Sep, [place] [address] [address] Aug, Encounter for immunization Z23 [place] [address] [address] Aug, [place] [address] [address] Jul, [place] [address] [address] Jun, Type 2 diabetes mellitus without complic ations E11.9 ; HTN (hypertension) I10 ; Hypothyroid E03.9 ; Neuropathy G62.9 ; Depression F32.9 ; Chronic pain G89.29 ; GERD (gastroesophageal reflux disease) K21.9 ; Insomnia G47.00 ; Overactive bladder N32.81 ; Mixed hyperlipidemia E78.2 ; Diarrhea of infectious origin A09 and Environmental allergies Z91.09 [place] [address] [address] Apr, [place] [address] [address] March, Hypothyroidism, unspecified E03.9 and Mi xed hyperlipidemia E78.2 [place] [address] [address] March, Diabetes mellitus E11.9 ; HTN (hypertens ion) I10 ; Hypothyroid E03.9 ; Depression F32.9 ; Overactive bladder N32.81 ; Other chronic pain G89.29 ; Lumbago with sciatica, unspecified side M54.40 ; Environmental allergies Z91.09 and Gastroesophageal reflux disease, esophagitis presence not specified K21.9 [place] [address] [address] March, [place] [address] [address] Jan, HTN (hypertension) I10 ; Hypothyroid E03 .9 ; Neuropathy G62.9 ; Diabetes mellitus E11.9 ; Chronic pain G89.29 ; GERD (gastroesophageal reflux disease) K21.9 ; Overactive bladder N32.81 and Depression F32.9 [place] [address] [address] 12 Dec, 2015 Ear pain, left H92.02 ; HTN (hypertensio n) I10 ; Hypothyroid E03.9 ; Neuropathy G62.9 ; Diabetes mellitus E11.9 ; Depression F32.9 ; GERD (gastroesophageal reflux disease) K21.9 ; Insomnia G47.00 and Overactive bladder N32.81 [place] [address] [address] Nov, Overactive bladder N32.81 and Chronic pa in G89.29 [place] [address] [address] Nov, Kidney failure N19 [place] [address] [address] 08 Nov, 2015 [place] [address] [address] Nov, [place] [address] [address] Nov, Diabetes mellitus E11.9 ; Depression F32 .9 ; Chronic pain G89.29 ; GERD (gastroesophageal reflux disease) K21.9 ; Insomnia G47.00 ; HTN (hypertension) I10 ; Hypothyroid E03.9 ; COPD (chronic obstructive pulmonary disease) J44.9 ; Bladder incontinence R32 and Incontinence R32 [place] [address] [address] Sep, Type 2 diabetes mellitus with foot ulcer E11.621 and Chromosomal abnormality, 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 [place] [address] Sep, [place] [address] [address] Aug, [place] [address] [address] Aug, [place] [address] [address] Aug, HTN (hypertension) I10 ; Encounter for i mmunization Z23 ; Hypothyroid E03.9 ; Neuropathy G62.9 ; Diabetes mellitus E11.9 ; Depression F32.9 ; Chronic pain G89.29 ; GERD (gastroesophageal reflux disease) K21.9 ; Insomnia G47.00 and COPD (chronic obstructive pulmonary disease) J44.9 [place] [address] [address] Jun, [place] [address] [address] Jun, [place] [address] [address] May, Essential hypertension, benign 401.1 ; U nspecified hypothyroidism 244.9 ; Insomnia, unspecified 780.52 ; Shortness of breath 786.05 ; Depression 311 ; COPD (chronic obstructive pulmonary disease) 496 ; GERD (gastroesophageal reflux disease) 530.81 and Diabetes 1.5, 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 [address] May, [place] [address] [address] May, [address] [address] May, Shortness of breath 786.05 ; Essential h ypertension, benign 401.1 ; Diabetes mellitus 250.00 ; Hyperlipidemia 272.4 ; Hypothyroid 244.9 ; Insomnia 780.52 and Cough 786.[address] [address] Apr, [facility] [id number] [place] [address] March, Shortness of breath 786.05 ; Nausea with vomiting 787.01 ; Essential hypertension, benign 401.1 ; Diabetes mellitus 250.00 ; Hyperlipidemia 272.4 and Hypothyroid 244.9 [facility] [id number] [place] [address] Feb, [facility] [address] [address] Feb, [facility] [address] [address] Jan, [facility] [id number] [place] [address] Jan, [facility] [address] [address] Jan, [facility] [address] [address] Jan, [facility] [id number] [place] [address] Jan, [facility] [address] [address] Jan, [facility] [id number] [place] [address] Jan, [facility] [id number] [place] [address] Jan, [facility] [id number] [place] [address] Jan, [facility] [address] [address] Jan, [facility] [id number] [place] [address] Dec, [facility] [address] [address] Dec, [facility] [id number] [place] [address] Dec, 2014 [facility] [id number] [place] [address] Dec, 2014 [facility] [id number] [place] [address] Dec, 2014 [facility] [id number] [place] [address] Dec, 2014 [facility] [id number] [place] [address] Dec, 2014 [facility] [id number] [place] [address] Dec, 2014 [facility] [id number] [place] [address] Dec, 2014 [facility] [id number] [place] [address] Dec, 2014 [facility] [id number] [place] [address] Oct, [facility] [id number] [place] [address] Oct, [facility] [id number] [place] [address] Oct, [facility] [id number] [place] [address] Oct, [facility] [id number] [place] [address] Oct, [facility] [id number] [place] [address] Oct, [facility] [id number] [place] [address] Oct, [facility] [id number] [place] [address] Oct, [facility] [id number] [place] [address] Oct, [facility] [id number] [place] [address] Oct, [facility] [id number] [place] [address] Oct, [facility] [id number] [place] [address] Oct, [facility] [id number] [place] [address] Oct, [facility] [id number] [place] [address] Oct, [facility] [id number] [place] [address] Sep, [facility] [id number] [place] [address] Sep, [facility] [id number] [place] [address] Sep, [facility] [id number] [place] [address] Sep, [facility] [id number] [place] [address] Sep, [facility] [id number] [place] [address] Sep, [facility] [id number] [place] [address] Sep, [facility] [place] [facility] [id number] [place] [address] Sep, [facility] [place] [facility] [id number] [place] [address] Sep, [facility] [place] [facility] [id number] [place] [address] Aug, [facility] [place] [facility] [id number] [place] [address] Aug, [facility] [place] [facility] [id number] [place] [address] 17 Aug, 2013 [facility] [place] [facility] [id number] [place] [address] 17 Aug, 2013 [facility] [place] [facility] [id number] [place] [address] 16 Aug, 2013 [facility] [place] [facility] [id number] [place] [address] Aug, 2013 [facility] [place] [facility] [id number] [place] [address] Aug, 2013 [facility] [place] [facility] [id number] [place] [address] Aug, [facility] [place] [facility] [id number] [place] [address] Aug, [facility] [place] [facility] [id number] [place] [address] 29 Sep, 2013 [facility] [place] [facility] [id number] [place] [address] 29 Sep, 2013 [facility] [place] [facility] [id number] [place] [address] 25 Sep, 2013 [facility] [place] [facility] [id number] [place] [address] 25 Sep, 2013 [facility] [place] [facility] [id number] [place] [address] 25 Sep, 2013 [facility] [place] [facility] [id number] [place] [address] 25 Sep, 2013 [facility] [place] [facility] [id number] [place] [address] 25 Sep, 2013 [facility] [place] [facility] [id number] [place] [address] 25 Sep, 2013 [facility] [place] [facility] [id number] [place] [address] Sep, 2013 [facility] [place] [facility] [id number] [place] [address] Jul, [facility] [place] [facility] [address] [id number] [facility] [place] [address] Jun, [facility] [place] [facility] [address] [facility] [id number] [place] [address] Jun, [facility] [place] [facility] [address] [facility] [id number] [facility] [place] [address] Jun, [facility] [place] [facility] [address] [id number] [place] [address] Jun, [facility] [place] [facility] [address] [id number] [place] [address] Jun, [facility] [place] [facility] [address] [id number] [place] [address] Jun, [facility] [place] [facility] [address] [facility] [id number] [facility] [place] [address] Jun, [facility] [place] [facility] [id number] [facility] [place] [address] Jun, [facility] [place] [facility] [address] [facility] [id number] [place] [address] Jun, [facility] [place] [facility] [address] [id number] [facility] [place] [address] Jun, [facility] [place] [facility] [address] [facility] [id number] [facility] [place] [address] Jun, [facility] [place] [facility] [id number] [facility] [place] [address] Jun, [facility] [place] [facility] [address] [id number] [facility] [place] [address] May, [facility] [place] [facility] [address] [id number] [facility] [place] [address] May, [facility] [place] [facility] [address] [facility] [id number] [place] [address] May, [facility] [place] [facility] [address] [facility] [id number] [facility] [place] [address] May, [facility] [place] [facility] [id number] [place] [address] May, [facility] [place] [facility] [address] [facility] [id number] [facility] [place] [address] May, [facility] [place] [facility] [address] [facility] [id number] [place] [address] March, [facility] [place] [facility] [id number] [place] [address] March, [facility] [place] [facility] [id number] [place] [address] March, [facility] [place] [facility] [address] [facility] [id number] [place] [address] March, [facility] [place] [facility] [id number] [place] [address] March, [facility] [place] [facility] [id number] [place] [address] March, [facility] [place] [facility] [id number] [place] [address] Feb, [facility] [place] [facility] [id number] [place] [address] Feb, [facility] [place] [facility] [id number] [place] [address] Feb, [facility] [place] [facility] [id number] [place] [address] Feb, [facility] [place] [facility] [id number] [place] [address] Jan, [facility] [place] [facility] [address] [facility] [id number] [place] [address] Jan, [facility] [place] [facility] [id number] [place] [address] Jan, [facility] [place] [facility] [id number] [place] [address] Jan, [facility] [place] [facility] [id number] [place] [address] Jan, [facility] [place] [facility] [id number] [place] [address] Jan, [facility] [place] [facility] [id number] [place] [address] Jan, [facility] [place] [facility] [id number] [place] [address] Jan, [facility] [place] [facility] [id number] [place] [address] Jan, [facility] [place] [facility] [id number] [place] [address] Jan, [facility] [place] [facility] [id number] [place] [address] Jan, [facility] [place] [facility] [id number] [place] [address] Jan, [facility] [place] [facility] [id number] [place] [address] Dec, [facility] [place] [facility] [id number] [place] [address] Dec, [facility] [place] [facility] [id number] [place] [address] Dec, [facility] [place] [facility] [id number] [place] [address] Dec, [facility] [place] [facility] [id number] [place] [address] Dec, [facility] [place] [facility] [id number] [place] [address] Dec, [facility] [place] [facility] [id number] [place] [address] Nov, [facility] [place] [facility] [id number] [place] [address] Nov, [facility] [place] [facility] [id number] [place] [address] Oct, [facility] [place] [facility] [id number] [place] [address] Oct, [facility] [place] [facility] [id number] [place] [address] Oct, [facility] [place] [facility] [id number] [place] [address] Oct, [facility] [place] [facility] [id number] [place] [address] Oct, [facility] [place] [facility] [id number] [place] [address] Oct, [facility] [place] [facility] [id number] [place] [address] Sep, [facility] [place] [facility] [id number] [place] [address] Sep, [facility] [place] [facility] [id number] [place] [address] Sep, [facility] [place] [facility] [id number] [place] [address] Sep, [facility] [place] [facility] [id number] [place] [address] Aug, [facility] [place] [facility] [id number] [place] [address] Aug, [facility] [place] [facility] [id number] [place] [address] Aug, [facility] [place] [facility] [id number] [place] [address] 17 Jul, 2013 [facility] [place] [facility] [id number] [place] [address] 14 Jul, 2013 [facility] [place] [facility] [id number] [place] [address] Jul, [facility] [place] [facility] [id number] [place] [address] Jun, [facility] [place] [facility] [id number] [place] [address] Jun, [facility] [place] [facility] [id number] [place] [address] Jun, [facility] [id number] [place] [address] Apr, [facility] [place] [facility] [id number] [place] [address] Apr, [facility] [place] [facility] [id number] [place] [address] March, [facility] [place] [facility] [id number] [place] [address] March, [facility] [place] [facility] [id number] [place] [address] March, [facility] [place] [facility] [id number] [place] [address] March, [facility] [place] [facility] [id number] [place] [address] Feb, [facility] [place] [facility] [id number] [place] [address] Jan, [facility] [place] [facility] [id number] [place] [address] Dec, [facility] [place] [facility] [id number] [place] [address] 08 Dec, 2012 [facility] [place] [facility] [id number] [place] [address] Dec, [facility] [place] [facility] [id number] [place] [address] Nov, [facility] [place] [facility] [id number] [place] [address] Oct, [facility] [place] [facility] [id number] [place] [address] Oct, [facility] [place] [facility] [id number] [place] [address] Sep, [facility] [place] [facility] [id number] [place] [address] Sep, [facility] [place] [facility] [id number] [place] [address] Sep, [facility] [place] [facility] [id number] [place] [address] Sep, [facility] [place] [facility] [id number] [place] [address] Sep, [facility] [place] [facility] [id number] [place] [address] Sep, [facility] [place] [facility] [id number] [place] [address] Sep, [facility] [place] [facility] [id number] [place] [address] Aug, [facility] [place] [facility] [id number] [place] [address] Aug, [facility] [place] [facility] [id number] [place] [address] Aug, [facility] [place] [facility] [id number] [place] [address] Aug, [facility] [place] [facility] [id number] [place] [address] Aug, [facility] [place] [facility] [id number] [place] [address] Aug, [facility] [place] [facility] [id number] [place] [address] Aug, [facility] [place] [facility] [id number] [place] [address] Aug, [facility] [place] [facility] [id number] [place] [address] Jul, [facility] [place] [facility] [id number] [place] [address] 12 Jul, 2012 [facility] [place] [facility] [id number] [place] [address] Jun, [facility] [place] [facility] [id number] [place] [address] May, [facility] [place] [facility] [address] [id number] [facility] [place] [address] Apr, [facility] [place] [facility] [id number] [place] [address] Apr, [facility] [place] [facility] [id number] [place] [address] Apr, [facility] [place] [facility] [id number] [place] [address] March, [facility] [place] [facility] [address] [facility] [id number] [facility] [place] [address] March, [facility] [place] [facility] [id number] [place] [address] March, [facility] [place] [facility] [id number] [place] [address] March, [facility] [place] [facility] [id number] [place] [address] March, [facility] [place] [facility] [id number] [place] [address] March, [facility] [place] [facility] [id number] [place] [address] March, [facility] [place] [facility] [id number] [place] [address] Jan, [facility] [place] [facility] [id number] [place] [address] Jan, [facility] [place] [facility] [id number] [place] [address] Jan, [facility] [place] [facility] [id number] [place] [address] Jan, [facility] [place] [facility] [id number] [place] [address] Jan, [facility] [place] [facility] [id number] [place] [address] Dec, [facility] [place] [facility] [id number] [place] [address] Dec, [facility] [place] [facility] [id number] [place] [address] Nov, [facility] [place] [facility] [id number] [place] [address] Nov, [facility] [place] [facility] [id number] [place] [address] Nov, [facility] [place] [facility] [id number] [place] [address] Nov, [facility] [place] [facility] [id number] [place] [address] Oct, [facility] [place] [facility] [id number] [place] [address] Oct, [facility] [place] [facility] [id number] [place] [address] 14 Sep, 2011 [facility] [place] [facility] [id number] [place] [address] Sep, [facility] [place] [facility] [id number] [place] [address] Sep, [facility] [place] [facility] [id number] [place] [address] May, [facility] [place] [facility] [id number] [place] [address] Nov, [facility] [place] [facility] [id number] [place] [address] Oct, [facility] [place] [facility] [id number] [place] [address] 14 Oct, 2010 [facility] [place] [facility] [id number] [place] [address] 08 Oct, 2010 [facility] [place] [facility] [id number] [place] [address] 15 Sep, 2010 [facility] [place] [facility] [id number] [place] [address] Sep, [facility] [id number] [place] [address] Aug, [facility] [id number] [place] [address] March, [facility] [id number] [place] [address] Oct, [facility] [id number] [place] [address] Oct, [facility] [id number] [place] [address] Oct, [facility] [address] [address] Oct, [facility] [id number] [place] [address] Sep, [facility] [address] [address] Sep, [facility] [id number] [place] [address] Sep, [facility] [id number] [place] [address] Aug, [facility] [id number] [place] [address] Aug, [facility] [id number] [place] [address] Aug, [facility] [id number] [place] [address] Jan, IMMUNIZATIONS No Known Immunizations SOCIAL HISTORY [...]
--- OUTSIDE RECORDS SUMMARY | 2020-06-13 16:01 | XMS REPORT ---
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 Name Role Phone Migration, Doctor Unavailable Unavailable PROBLEMS Type Condition ICD9-CM Code [id number] Code Onset Dates Condition S tatus SNOMED Code Problem Neuropathy G62.9 Active 071199999 Problem Chronic pain G89.29 Active 9000428 1 Problem Overactive bladder N32.81 Active 2 54476482 Problem Hypothyroid E03.9 Active 91868145 Problem Irritable bowel syndrome with diarrhea K58.0 Active 576383807 Problem halfway 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 Z79.4 Active 063486107 Problem Type 2 diabetes mellitus with hyperglycemia E11.65 Active 85634773 Problem Chronic obstructive pulmonary disease, unspecified COPD ty pe J44.9 Active 98914711 Problem Gastroesophageal reflux disease with esophagitis K 21.0 Active 733852104 Problem Major depressive disorder, recurrent, in full remission F33.42 Active 11192872 Problem Mixed hyperlipidemia E78.2 Active 403254158 Problem Essential (primary) hypertension I10 Active 93744534 Problem Anxiety disorder, unspecified type F41.9 Active 590682247 Problem Gastroparesis K31.84 Active 123205 006 Problem 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 Active 117448172 ALLERGIES No Information ENCOUNTERS Encounter Location Date Diagnosis [facility] [id number] [place] [address] Jan, [facility] [address] [address] 05 Jan, 2020 Chronic pain G89.29 [facility] [address] [address] 10 Dec, 2019 Chronic pain G89.29 [facility] [id number] [place] [address] 07 Dec, 2019 [facility] [address] [address] 07 Dec, 2019 [place] [address] [address] Nov, Chronic pain G89.29 [place] [address] [address] Oct, Chronic pain G89.29 [place] [address] [address] Sep, Chronic pain G89.29 [place] [address] [address] Sep, Type 2 diabetes mellitus with diabetic a utonomic (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 ; Irritable bowel syndrome with diarrhea K58.0 ; Essential (primary) hypertension I10 and Encounter for immunization Z23 [place] [address] [address] Aug, Chronic pain G89.29 [place] [address] [address] Aug, [place] [address] [address] Jul, Chronic pain G89.29 [place] [address] [address] Jun, Other chronic pain G89.29 [place] [address] [address] Jun, [place] [address] [address] Jun, Chronic pain G89.29 [place] [address] [address] Jun, Neuropathy G62.9 [place] [address] [address] 06 Jun, 2019 Encounter for Medicare annual wellness e xam Z00.00 ; Type 2 diabetes mellitus with hyperglycemia E11.65 ; Mixed hyperlipidemia E78.2 ; Hypothyroid E03.9 ; Gastroesophageal reflux disease with esophagitis K21.0 ; Essential (primary) hypertension I10 ; Major depressive disorder, recurrent, in full remission F33.42 ; Chronic obstructive pulmonary disease, unspecified COPD type J44.9 ; Neuropathy G62.9 and Encounter for immunization Z23 [place] [address] [address] Jun, Irritable bowel syndrome with diarrhea K 58.0 [place] [address] [address] May, Chronic pain G89.[address] [address] May, Type 2 diabetes mellitus with hyperglyce regina E11.65 and Neuropathy G62.9 [place] [address] [address] May, Chronic pain G89.29 [place] [address] [address] Apr, Poison maryam dermatitis L23.7 [place] [address] [address] Apr, Chronic pain G89.29 [place] [address] [address] March, Type 2 diabetes mellitus with hyperglyce regina E11.65 [place] [address] [address] March, Chronic pain G89.29 [place] [address] [address] March, [address] [place] [address] Feb, [address] [address] Feb, Other chronic pain G89.29 and Chronic pa in G89.[address] [address] Jan, Mixed hyperlipidemia E78.2 [place] [address] [address] Jan, Chronic pain G89.29 [place] [address] [address] 08 Jan, 2019 Type 2 diabetes mellitus with hyperglyce regina E11.65 ; Mixed hyperlipidemia E78.2 ; buttermaker 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 Z79.4 ; Acquired hypothyroidism E03.9 and Essential (primary) hypertension I10 [place] [address] [address] 11 Dec, 2018 Chronic pain G89.29 [place] [address] [address] Nov, Chronic pain G89.29 [place] [address] [address] Nov, [place] [address] [address] Oct, Chronic pain G89.29 [place] [address] [address] Oct, [place] [address] [address] Sep, [place] [address] [address] Sep, Type 2 diabetes mellitus with hyperglyce regina E11.65 [place] [address] [address] Sep, Chronic pain G89.29 [facility] [address] [address] Sep, [place] [address] [address] Sep, Type 2 diabetes mellitus with hyperglyce regina E11.65 ; Irritable bowel syndrome with diarrhea K58.0 ; Gastroparesis K31.84 ; 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 and Dermatitis L30.9 [place] [address] [address] Aug, Chronic pain G89.29 [place] [address] [address] Jul, Chronic pain G89.29 [place] [address] [address] Jun, Type 2 diabetes mellitus with hyperglyce regina E11.65 ; Neuropathy G62.9 ; Recurrent major depressive disorder, in partial remission F33.41 ; Chronic pain G89.29 and Hypertriglyceridemia E78.1 [place] [address] [address] Jun, Hypothyroid E03.9 [place] [address] [address] Jun, Major depressive disorder, recurrent epi sode, moderate F33.1 and Anxiety disorder, unspecified type F41.9 [place] [address] [address] Jun, [place] [address] [address] Jun, Type 2 diabetes mellitus with hyperglyce regina E11.65 ; buttermaker 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 Z79.4 ; Recurrent major depressive disorder, in partial remission F33.41 ; Hypothyroid E03.9 ; Candidal dermatitis B37.2 and Weakness generalized R53.1 [place] [address] [address] May, [place] [address] [address] May, [place] [address] [address] May, [place] [address] [address] May, Generalized abdominal pain R10.84 and Ca ndidal dermatitis B37.2 [place] [address] [address] May, [place] [address] [address] May, [place] [address] [address] May, Nodular radiologic density R93.8 ; Weigh t loss, unintentional R63.4 and Pulmonary emphysema, unspecified emphysema type J43.9 [place] [address] [address] May, Chronic pain G89.29 [place] [address] [address] May, Syncope and collapse R55 ; Chronic fatig ue R53.[address] lung screening R91.8 [place] [address] [address] May, [place] [address] [address] Apr, Chronic fatigue R53.82 ; Abnormal chest CT R93.8 ; Elevated erythrocyte sedimentation rate R70.0 ; Hypothyroid E03.9 and Recurrent major depressive disorder, in partial remission F33.41 [place] [address] [address] Apr, Hypothyroid E03.9 [place] [address] [address] Apr, Depression F32.9 [place] [address] [address] Apr, [place] [address] [address] March, [place] [address] [address] March, Hypothyroid E03.9 [place] [address] [address] March, Diabetes mellitus E11.9 and Hypothyroid E03.9 [place] [address] [address] March, Diabetes mellitus E11.9 [place] [address] [address] March, Hypothyroid E03.9 and Elevated liver enz ymes R74.8 [place] [address] [address] March, Type 2 diabetes mellitus with hyperglyce regina E11.65 ; buttermaker 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 Z79.4 ; Pulmonary emphysema, unspecified emphysema type J43.9 ; Hypothyroid E03.9 ; Neuropathy G62.9 ; Mixed hyperlipidemia E78.2 ; Chronic pain G89.29 ; Gastroesophageal reflux disease with esophagitis K21.0 ; Irritable bowel syndrome with diarrhea K58.0 ; Overactive bladder N32.81 and Recurrent major depressive disorder, in partial remission F33.41 [place] [address] [address] Feb, Chronic pain G89.29 [place] [address] [address] Feb, Type 2 diabetes mellitus with hyperglyce regina E11.65 and Skin lesion of scalp L98.9 [place] [address] [address] Feb, [place] [address] [address] Jan, Type 2 diabetes mellitus with hyperglyce regina E11.65 ; buttermaker 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 Z79.4 ; Essential (primary) hypertension I10 ; Pulmonary emphysema, unspecified emphysema type J43.9 ; Chronic pain G89.29 ; Controlled substance agreement signed Z79.899 ; Hypothyroid E03.9 ; Neuropathy G62.9 ; Gastroesophageal reflux disease with esophagitis K21.0 ; Overactive bladder N32.81 ; Depression F32.9 and Irritable bowel syndrome with diarrhea K58.0 [place] [address] [address] Jan, [address] [address] [address] Jan, Controlled substance agreement signed Z7 9.899 [place] [address] [address] 08 Dec, 2017 Type 2 diabetes mellitus with hyperglyce regina E11.65 ; Controlled substance agreement signed Z79.899 ; buttermaker 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 Z79.4 ; Essential (primary) hypertension I10 ; Hypothyroid E03.9 ; Neuropathy G62.9 ; Depression F32.9 ; Mixed hyperlipidemia E78.2 ; Irritable bowel syndrome with diarrhea K58.0 ; Gastroesophageal reflux disease with esophagitis K21.0 ; Thrombocytosis D47.3 ; Current non-adherence to medical treatment Z91.19 and Overweight (BMI 25.0-29.9) E66.3 [place] [address] [address] 02 Dec, 2017 Controlled substance agreement signed Z7 9.899 [place] [address] [address] Nov, Type 2 diabetes mellitus with hyperglyce regina E11.65 and Current non- adherence to medical treatment Z91.19 [place] [address] [address] Nov, [place] [address] [address] Nov, Chronic pain G89.29 [place] [address] [address] Nov, [place] [address] [address] Nov, Hypothyroid E03.9 [place] [address] [address] Nov, Hypothyroid E03.9 [place] [address] [address] Nov, Pulmonary emphysema, unspecified emphyse ma type J43.9 and Irritable bowel syndrome with diarrhea K58.0 [place] [address] [address] Oct, [place] [address] [address] Oct, [place] [address] [address] Oct, [place] [address] [address] Oct, [place] [address] [address] Oct, Chronic pain G89.29 [place] [address] [address] Oct, Diabetes mellitus E11.9 ; Depression F32 .9 ; Mixed hyperlipidemia E78.2 ; Hypotension, unspecified hypotension type I95.9 ; Pulmonary emphysema, unspecified emphysema type J43.9 and Weight loss, unintentional R63.4 [place] [address] [address] Oct, Chronic pain G89.29 [place] [address] [address] Sep, Chronic pain G89.[address] [address] Sep, Hypothyroid E03.9 and Diabetes mellitus E11.9 [address] [place] [address] [address] Aug, Type 2 diabetes mellitus with hyperglyce regina E11.65 ; buttermaker 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 Z79.4 ; Essential (primary) hypertension I10 ; Hypothyroid E03.9 ; Neuropathy G62.9 ; Chronic pain G89.29 ; Mixed hyperlipidemia E78.2 and Encounter for immunization Z23 [address] [address] Aug, Chronic pain G89.29 [facility] [address] [address] Aug, Overactive bladder N32.81 ; Diabetes alvarez litus E11.9 and Chronic pain G89.29 [facility] [id number] [place] [address] Jul, [facility] [address] [address] Jun, [facility] [address] [address] Jun, [facility] [address] [address] Jun, Hypothyroid E03.9 [facility] [address] [address] Jun, Diabetes mellitus E11.9 ; Hypothyroid E0 3.9 ; Neuropathy G62.9 ; Chronic pain G89.29 and Neck mass R22.1 [facility] [address] [address] Apr, [facility] [address] [address] Apr, Acute cystitis without hematuria N30.00 [facility] [address] [address] March, [facility] [address] [address] March, [facility] [address] [address] March, Near syncope R55 [facility] [address] [address] Feb, [facility] [address] [address] Feb, Chronic pain G89.29 [facility] [address] [address] Feb, [place] [address] [address] Feb, [facility] [address] [address] Jan, Chronic pain G89.29 [facility] [address] [address] Jan, [facility] [address] [address] 16 Jan, 2017 [place] [address] [address] 14 Jan, 2017 Diabetes mellitus E11.9 ; Hypothyroid E0 3.9 ; GERD (gastroesophageal reflux disease) K21.9 ; Insomnia G47.00 ; Functional 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 ; Neuropathy G62.9 ; Depression F32.9 ; Chronic pain G89.29 ; Irritable bowel syndrome with diarrhea K58.0 ; Overactive bladder N32.81 ; Mixed hyperlipidemia E78.2 and Bronchitis J40 [address] [place] [address] [address] Dec, [place] [address] [address] Dec, [place] [address] [address] Dec, [place] [address] [address] Dec, [facility] [address] [address] Dec, Chronic pain G89.29 [address] [place] [address] [address] Dec, [place] [address] [address] Dec, [place] [address] [address] 17 Feb, 2017 Type 2 diabetes mellitus with foot ulcer E11.621 [facility] [address] [address] 17 Dec, 2016 Type 2 diabetes mellitus with foot ulcer E11.621 [place] [address] [address] 14 Dec, 2016 HTN (hypertension) I10 ; Depression F32. 9 ; Type 2 diabetes mellitus with foot ulcer E11.621 ; Functional 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 ; Irritable bowel syndrome with diarrhea K58.0 ; Chronic pain G89.29 ; Insomnia G47.00 ; Overactive bladder N32.81 ; Mixed hyperlipidemia E78.2 ; Gastroesophageal reflux disease with esophagitis K21.0 and Acquired hypothyroidism E03.9 [address] [place] [address] [address] Nov, [place] [address] [address] Oct, [place] [address] [address] Oct, [place] [address] [address] Oct, [address] [address] Sep, Functional 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 ; HTN (hyperte nsion) I10 ; Diabetes mellitus E11.9 ; Depression F32.9 ; Overactive bladder N32.81 ; Mixed hyperlipidemia E78.2 ; Gastroesophageal reflux disease without esophagitis K21.9 ; Chronic pain G89.29 ; Insomnia G47.00 and Acquired hypothyroidism E03.9 [address] [place] [address] [address] Sep, [address] [address] Aug, Encounter for immunization Z23 [address] [address] Aug, [address] [place] [address] Jul, [place] [address] [address] Jun, Type 2 diabetes mellitus without complic ations E11.9 ; HTN (hypertension) I10 ; Hypothyroid E03.9 ; Neuropathy G62.9 ; Depression F32.9 ; Chronic pain G89.29 ; GERD (gastroesophageal reflux disease) K21.9 ; Insomnia G47.00 ; Overactive bladder N32.81 ; Mixed hyperlipidemia E78.2 ; Diarrhea of infectious origin A09 and Environmental allergies Z91.09 [place] [address] [address] Apr, [place] [address] [address] March, Hypothyroidism, unspecified E03.9 and Mi xed hyperlipidemia E78.2 [address] [place] [address] [address] March, Diabetes mellitus E11.9 ; HTN (hypertens ion) I10 ; Hypothyroid E03.9 ; Depression F32.9 ; Overactive bladder N32.81 ; Other chronic pain G89.29 ; Lumbago with sciatica, unspecified side M54.40 ; Environmental allergies Z91.09 and Gastroesophageal reflux disease, esophagitis presence not specified K21.9 [address] [place] [address] [address] March, [address] [address] Jan, HTN (hypertension) I10 ; Hypothyroid E03 .9 ; Neuropathy G62.9 ; Diabetes mellitus E11.9 ; Chronic pain G89.29 ; GERD (gastroesophageal reflux disease) K21.9 ; Overactive bladder N32.81 and Depression F32.9 [address] [place] [address] [address] Dec, Ear pain, left H92.02 ; HTN (hypertensio n) I10 ; Hypothyroid E03.9 ; Neuropathy G62.9 ; Diabetes mellitus E11.9 ; Depression F32.9 ; GERD (gastroesophageal reflux disease) K21.9 ; Insomnia G47.00 and Overactive bladder N32.81 [place] [address] [address] Nov, Overactive bladder N32.81 and Chronic pa in G89.[address] [address] Nov, Kidney failure N19 [place] [address] [address] Nov, [place] [address] [address] Nov, [place] [address] [address] Nov, Diabetes mellitus E11.9 ; Depression F32 .9 ; Chronic pain G89.29 ; GERD (gastroesophageal reflux disease) K21.9 ; Insomnia G47.00 ; HTN (hypertension) I10 ; Hypothyroid E03.9 ; COPD (chronic obstructive pulmonary disease) J44.9 ; Bladder incontinence R32 and Incontinence R32 [address] [address] Sep, Type 2 diabetes mellitus with foot ulcer E11.621 and Chromosomal abnormality, 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 [address] Sep, [place] [address] [address] Aug, [place] [address] [address] Aug, [address] [address] Aug, HTN (hypertension) I10 ; Encounter for i mmunization Z23 ; Hypothyroid E03.9 ; Neuropathy G62.9 ; Diabetes mellitus E11.9 ; Depression F32.9 ; Chronic pain G89.29 ; GERD (gastroesophageal reflux disease) K21.9 ; Insomnia G47.00 and COPD (chronic obstructive pulmonary disease) J44.9 [place] [address] [address] Jun, [facility] [address] [address] Jun, [place] [address] [address] May, Essential hypertension, benign 401.1 ; U nspecified hypothyroidism 244.9 ; Insomnia, unspecified 780.52 ; Shortness of breath 786.05 ; Depression 311 ; COPD (chronic obstructive pulmonary disease) 496 ; GERD (gastroesophageal reflux disease) 530.81 and Diabetes 1.5, 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 [place] [address] [address] May, [place] [address] [address] May, [place] [address] [address] May, Shortness of breath 786.05 ; Essential h ypertension, benign 401.1 ; Diabetes mellitus 250.00 ; Hyperlipidemia 272.4 ; Hypothyroid 244.9 ; Insomnia 780.52 and Cough 786.2 [place] [address] [address] Apr, [address] [address] March, Shortness of breath 786.05 ; Nausea with vomiting 787.01 ; Essential hypertension, benign 401.1 ; Diabetes mellitus 250.00 ; Hyperlipidemia 272.4 and Hypothyroid 244.9 [place] [address] [address] Feb, [place] [address] [address] Feb, [address] [address] Jan, [facility] [address] [id number] [place] [address] Jan, [facility] [address] [id number] [place] [address] Jan, [facility] [address] [id number] [place] [address] Jan, [facility] [address] [id number] [place] [address] Jan, [facility] [address] [facility] [id number] [place] [address] Jan, [facility] [address] [id number] [place] [address] Jan, [facility] [address] [id number] [place] [address] Jan, [facility] [address] [id number] [place] [address] Jan, [facility] [address] [id number] [place] [address] Jan, [facility] [address] [id number] [place] [address] Dec, 2014 [facility] [address] [id number] [place] [address] Dec, 2014 [facility] [address] [id number] [place] [address] Dec, 2014 [facility] [address] [id number] [place] [address] Dec, 2014 [facility] [address] [id number] [place] [address] Dec, 2014 [facility] [address] [id number] [place] [address] Dec, 2014 [facility] [address] [id number] [place] [address] Dec, 2014 [facility] [address] [id number] [place] [address] Dec, 2014 [facility] [address] [id number] [place] [address] Dec, 2014 [facility] [address] [id number] [place] [address] Dec, 2014 [facility] [address] [id number] [place] [address] Oct, [facility] [address] [id number] [place] [address] Oct, [facility] [address] [id number] [place] [address] Oct, [facility] [address] [id number] [place] [address] Oct, [facility] [address] [id number] [place] [address] Oct, [facility] [address] [id number] [place] [address] Oct, [facility] [address] [id number] [place] [address] Oct, [facility] [address] [id number] [place] [address] Oct, [facility] [address] [id number] [place] [address] Oct, [facility] [address] [id number] [place] [address] Oct, [facility] [address] [id number] [place] [address] Oct, [facility] [address] [id number] [place] [address] Oct, [facility] [address] [id number] [place] [address] Oct, [facility] [address] [id number] [place] [address] Oct, [facility] [address] [id number] [place] [address] Sep, [facility] [address] [id number] [place] [address] Sep, [facility] [address] [id number] [place] [address] Sep, [facility] [address] [id number] [place] [address] Sep, [facility] [address] [facility] [id number] [place] [address] Sep, [facility] [address] [id number] [place] [address] Sep, [facility] [address] [id number] [place] [address] Sep, [facility] [address] [id number] [place] [address] Sep, [facility] [address] [id number] [place] [address] Sep, [facility] [address] [id number] [place] [address] Aug, [facility] [address] [id number] [place] [address] Aug, [facility] [address] [id number] [place] [address] Aug, [facility] [address] [id number] [place] [address] 17 Aug, 2014 [facility] [address] [id number] [place] [address] 16 Aug, 2014 [facility] [address] [id number] [place] [address] 13 Aug, 2014 [facility] [address] [id number] [place] [address] Aug, [facility] [address] [id number] [place] [address] Aug, [facility] [address] [id number] [place] [address] Aug, [facility] [address] [id number] [place] [address] Jul, [facility] [address] [id number] [place] [address] Jul, [facility] [address] [id number] [place] [address] Jul, [facility] [address] [id number] [place] [address] Jul, [facility] [address] [id number] [place] [address] Jul, [facility] [address] [id number] [place] [address] Jul, [facility] [address] [id number] [place] [address] Jul, [facility] [address] [id number] [place] [address] Jul, [facility] [address] [id number] [place] [address] Jul, [facility] [address] [id number] [place] [address] Jul, [facility] [address] [id number] [place] [address] Jun, [facility] [address] [id number] [place] [address] Jun, [facility] [address] [id number] [place] [address] Jun, [facility] [address] [id number] [place] [address] Jun, [facility] [address] [id number] [place] [address] Jun, [facility] [address] [id number] [place] [address] Jun, [facility] [address] [facility] [id number] [place] [address] Jun, [facility] [address] [facility] [id number] [place] [address] Jun, [facility] [address] [facility] [id number] [place] [address] Jun, [facility] [address] [facility] [id number] [place] [address] Jun, [facility] [address] [facility] [id number] [place] [address] Jun, [facility] [address] [facility] [id number] [place] [address] Jun, [facility] [address] [id number] [place] [address] May, [facility] [address] [facility] [id number] [place] [address] May, [facility] [address] [id number] [place] [address] May, [facility] [address] [id number] [place] [address] May, [facility] [address] [id number] [place] [address] May, [facility] [address] [facility] [id number] [place] [address] May, [facility] [address] [facility] [id number] [place] [address] March, [facility] [address] [facility] [id number] [place] [address] March, [facility] [address] [id number] [place] [address] March, [facility] [address] [id number] [place] [address] March, [facility] [address] [facility] [id number] [place] [address] March, [facility] [address] [facility] [id number] [place] [address] March, [facility] [address] [id number] [place] [address] Feb, [facility] [address] [facility] [id number] [place] [address] Feb, [facility] [address] [facility] [id number] [place] [address] Feb, [facility] [address] [id number] [place] [address] Feb, [facility] [address] [id number] [place] [address] Jan, [facility] [address] [id number] [place] [address] Jan, [facility] [address] [id number] [place] [address] Jan, [facility] [address] [id number] [place] [address] Jan, [facility] [address] [id number] [place] [address] Jan, [facility] [address] [id number] [place] [address] Jan, [facility] [address] [id number] [place] [address] Jan, [facility] [address] [id number] [place] [address] Jan, [facility] [address] [id number] [place] [address] Jan, [facility] [address] [id number] [place] [address] Jan, [facility] [address] [id number] [place] [address] Jan, [facility] [address] [id number] [place] [address] Jan, [facility] [address] [id number] [place] [address] Dec, [facility] [address] [id number] [place] [address] Dec, [facility] [address] [id number] [place] [address] Dec, [facility] [address] [id number] [place] [address] Dec, [facility] [address] [id number] [place] [address] Dec, [facility] [id number] [place] [address] Dec, [facility] [id number] [place] [address] Nov, [facility] [address] [id number] [place] [address] Nov, [facility] [id number] [place] [address] Oct, [facility] [address] [id number] [place] [address] Oct, [facility] [address] [id number] [place] [address] Oct, [facility] [address] [id number] [place] [address] Oct, [facility] [id number] [place] [address] Oct, [facility] [address] [id number] [place] [address] Oct, [facility] [id number] [place] [address] Sep, [facility] [address] [id number] [place] [address] Sep, [facility] [address] [id number] [place] [address] Sep, [facility] [address] [id number] [place] [address] Sep, [facility] [address] [id number] [place] [address] Aug, [facility] [address] [facility] [id number] [place] [address] Aug, [facility] [address] [id number] [place] [address] Aug, [facility] [address] [id number] [place] [address] Jul, [facility] [address] [id number] [place] [address] 14 Jul, 2013 [facility] [address] [id number] [place] [address] Jul, [facility] [address] [id number] [place] [address] Jun, [facility] [address] [id number] [place] [address] Jun, [facility] [address] [id number] [place] [address] Jun, [facility] [address] [id number] [place] [address] Apr, [facility] [address] [id number] [place] [address] Apr, [facility] [address] [id number] [place] [address] March, [facility] [address] [id number] [place] [address] March, [facility] [address] [id number] [place] [address] March, [facility] [address] [id number] [place] [address] March, [facility] [address] [id number] [place] [address] Feb, [facility] [address] [id number] [place] [address] Jan, [facility] [address] [id number] [place] [address] Dec, [facility] [address] [id number] [place] [address] Dec, [facility] [address] [id number] [place] [address] Dec, [facility] [address] [id number] [place] [address] Nov, [facility] [address] [id number] [place] [address] Oct, [facility] [address] [id number] [place] [address] Oct, [facility] [address] [id number] [place] [address] Sep, [facility] [address] [id number] [place] [address] Sep, [facility] [address] [id number] [place] [address] Sep, [facility] [address] [id number] [place] [address] Sep, [facility] [id number] [place] [address] Sep, [facility] [address] [id number] [place] [address] Sep, [facility] [address] [id number] [place] [address] Sep, [facility] [address] [id number] [place] [address] 16 Aug, 2012 [facility] [address] [id number] [place] [address] 16 Aug, 2012 [facility] [address] [id number] [place] [address] Aug, [facility] [address] [id number] [place] [address] Aug, [facility] [address] [id number] [place] [address] Aug, [facility] [address] [id number] [place] [address] Aug, [facility] [address] [id number] [place] [address] Aug, [facility] [address] [id number] [place] [address] Aug, [facility] [address] [id number] [place] [address] Jul, [facility] [address] [id number] [place] [address] Jul, [facility] [address] [id number] [place] [address] Jun, [facility] [address] [id number] [place] [address] May, [facility] [address] [id number] [place] [address] Apr, [facility] [address] [id number] [place] [address] Apr, [facility] [address] [id number] [place] [address] Apr, [facility] [address] [id number] [place] [address] March, [facility] [address] [id number] [place] [address] March, [facility] [place] [place] [facility] [address] [facility] [id number] [place] [address] March, [facility] [address] [id number] [place] [address] March, [facility] [address] [id number] [place] [address] March, [facility] [address] [id number] [place] [address] March, [facility] [address] [facility] [id number] [place] [address] March, [facility] [address] [id number] [place] [address] Jan, [facility] [address] [id number] [place] [address] Jan, [facility] [address] [id number] [place] [address] Jan, [facility] [address] [id number] [place] [address] Jan, [facility] [address] [id number] [place] [address] Jan, [facility] [address] [id number] [place] [address] Dec, [facility] [address] [id number] [place] [address] Dec, [facility] [address] [id number] [place] [address] Nov, [facility] [address] [id number] [place] [address] Nov, [facility] [address] [id number] [place] [address] Nov, [facility] [address] [id number] [place] [address] Nov, [facility] [address] [id number] [place] [address] 21 Oct, 2011 [facility] [address] [id number] [place] [address] 06 Oct, 2011 [facility] [address] [id number] [place] [address] 14 Sep, 2011 [facility] [address] [id number] [place] [address] 10 Sep, 2011 [facility] [address] [id number] [place] [address] 10 Sep, 2011 [facility] [address] [id number] [place] [address] 11 May, 2011 [facility] [address] [id number] [place] [address] 20 Nov, 2010 [facility] [address] [id number] [place] [address] 29 Oct, 2010 [facility] [address] [id number] [place] [address] 14 Oct, 2010 [facility] [address] [id number] [place] [address] 08 Oct, 2010 [facility] [address] [id number] [place] [address] 15 Sep, 2010 [facility] [address] [id number] [place] [address] Sep, [facility] [address] [id number] [place] [address] Aug, [facility] [address] [id number] [place] [address] March, [facility] [address] [id number] [place] [address] 17 Oct, 2009 [facility] [address] [id number] [place] [address] 17 Oct, 2009 [facility] [address] [id number] [place] [address] Oct, [facility] [address] [id number] [place] [address] Oct, [facility] [address] [id number] [place] [address] Sep, [facility] [address] [id number] [place] [address] Sep, [facility] [id number] [place] [address] Sep, [facility] [id number] [place] [address] Aug, [facility] [id number] [place] [address] Aug, [facility] [address] [id number] [place] [address] Aug, [facility] [address] [id number] [place] [address] Jan, IMMUNIZATIONS No Known Immunizations SOCIAL HISTORY [...] History left knee arthroscopy-torn cartilage Surgical History colonscopy-2013 normal Surgical History tube in left ear 05/2016 Surgical History Abd hernia repair 12/2016 Hospitalization History surgeries
--- OUTSIDE RECORDS SUMMARY | 2020-06-13 16:02 | XMS REPORT ---
Author Author Jah Durant Doctor Organization [facility] Address Unknown Phone Unavailable Care Team Providers Care Packer Denture Name Role Phone Migration, Doctor Unavailable Unavailable PROBLEMS Type Condition ICD9-CM Code ESX67-NA Code Onset Dates Condition S tatus SNOMED Code Problem Neuropathy G62.9 Active 163153464 Problem Chronic pain G89.29 Active 6227618 1 Problem Overactive bladder N32.81 Active 2 74165466 Problem Hypothyroid E03.9 Active 74028716 Problem Irritable bowel syndrome with diarrhea K58.0 Active 127042596 Problem senior living 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 Z79.4 Active 809234569 Problem Type 2 diabetes mellitus with hyperglycemia E11.65 Active 68930367 Problem Chronic obstructive pulmonary disease, unspecified COPD ty pe J44.9 Active 47662012 Problem Gastroesophageal reflux disease with esophagitis K 21.0 Active 726883738 Problem Major depressive disorder, recurrent, in full remission F33.42 Active 81652504 Problem Mixed hyperlipidemia E78.2 Active 297491642 Problem Essential (primary) hypertension I10 Active 45053902 Problem Anxiety disorder, unspecified type F41.9 Active 838391415 Problem Gastroparesis K31.84 Active 578029 006 Problem 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 Active 886411410 ALLERGIES No Information ENCOUNTERS Encounter Location Date Diagnosis [facility] [id number] [place] [address] Jan, [facility] [address] [address] 05 Jan, 2020 Chronic pain G89.29 [facility] [address] [address] 10 Dec, 2019 Chronic pain G89.29 [facility] [id number] [place] [address] 07 Dec, 2019 [facility] [address] [address] 07 Dec, 2019 [place] [address] [address] Nov, Chronic pain G89.29 [place] [address] [address] Oct, Chronic pain G89.29 [place] [address] [address] Sep, Chronic pain G89.29 [place] [address] [address] Sep, Type 2 diabetes mellitus with diabetic a utonomic (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 ; Irritable bowel syndrome with diarrhea K58.0 ; Essential (primary) hypertension I10 and Encounter for immunization Z23 [place] [address] [address] Aug, Chronic pain G89.29 [place] [address] [address] Aug, [place] [address] [address] Jul, Chronic pain G89.29 [place] [address] [address] Jun, Other chronic pain G89.29 [place] [address] [address] Jun, [place] [address] [address] Jun, Chronic pain G89.29 [place] [address] [address] Jun, Neuropathy G62.9 [place] [address] [address] 06 Jun, 2019 Encounter for Medicare annual [...] Neuropathy G62.9 and Encounter for immunization Z23 [place] [address] [address] Jun, Irritable bowel syndrome with diarrhea K 58.0 [place] [address] [address] May, Chronic pain G89.[address] [address] May, Type 2 diabetes mellitus with hyperglyce regina E11.65 and Neuropathy G62.9 [place] [address] [address] May, Chronic pain G89.29 [place] [address] [address] Apr, Poison maryam dermatitis L23.7 [place] [address] [address] Apr, Chronic pain G89.29 [place] [address] [address] March, Type 2 diabetes mellitus with hyperglyce regina E11.65 [place] [address] [address] March, Chronic pain G89.29 [place] [address] [address] March, [address] [place] [address] Feb, [address] [address] Feb, Other chronic pain G89.29 and Chronic pa in G89.[address] [address] Jan, Mixed hyperlipidemia E78.2 [place] [address] [address] Jan, Chronic pain G89.29 [place] [address] [address] 08 Jan, 2019 Type 2 diabetes mellitus with hyperglyce regina E11.65 ; Mixed hyperlipidemia E78.2 ; 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.4 ; Acquired hypothyroidism E03.9 and Essential (primary) hypertension I10 [place] [address] [address] 11 Dec, 2018 Chronic pain G89.29 [place] [address] [address] Nov, Chronic pain G89.29 [place] [address] [address] Nov, [place] [address] [address] Oct, Chronic pain G89.29 [place] [address] [address] Oct, [place] [address] [address] Sep, [place] [address] [address] Sep, Type 2 diabetes mellitus with hyperglyce regina E11.65 [place] [address] [address] Sep, Chronic pain G89.29 [facility] [address] [address] Sep, [place] [address] [address] Sep, Type 2 diabetes mellitus with hyperglyce regina E11.65 ; Irritable bowel syndrome with diarrhea K58.0 ; Gastroparesis K31.84 ; 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 and Dermatitis L30.9 [place] [address] [address] Aug, Chronic pain G89.29 [place] [address] [address] Jul, Chronic pain G89.29 [place] [address] [address] Jun, Type 2 diabetes mellitus with hyperglyce regina E11.65 ; Neuropathy G62.9 ; Recurrent major depressive disorder, in partial remission F33.41 ; Chronic pain G89.29 and Hypertriglyceridemia E78.1 [place] [address] [address] Jun, Hypothyroid E03.9 [place] [address] [address] Jun, Major depressive disorder, recurrent epi sode, moderate F33.1 and Anxiety disorder, unspecified type F41.9 [place] [address] [address] Jun, [place] [address] [address] Jun, Type 2 diabetes mellitus with hyperglyce regina E11.65 ; 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.4 ; Recurrent major depressive disorder, in partial remission F33.41 ; Hypothyroid E03.9 ; Candidal dermatitis B37.2 and Weakness generalized R53.1 [place] [address] [address] May, [place] [address] [address] May, [place] [address] [address] May, [place] [address] [address] May, Generalized abdominal pain R10.84 and Ca ndidal dermatitis B37.2 [place] [address] [address] May, [place] [address] [address] May, [place] [address] [address] May, Nodular radiologic density R93.8 ; Weigh t loss, unintentional R63.4 and Pulmonary emphysema, unspecified emphysema type J43.9 [place] [address] [address] May, Chronic pain G89.29 [place] [address] [address] May, Syncope and collapse R55 ; Chronic fatig ue R53.[address] lung screening R91.8 [place] [address] [address] May, [place] [address] [address] Apr, Chronic fatigue R53.82 ; Abnormal chest CT R93.8 ; Elevated erythrocyte sedimentation rate R70.0 ; Hypothyroid E03.9 and Recurrent major depressive disorder, in partial remission F33.41 [place] [address] [address] Apr, Hypothyroid E03.9 [place] [address] [address] Apr, Depression F32.9 [place] [address] [address] Apr, [place] [address] [address] March, [place] [address] [address] March, Hypothyroid E03.9 [place] [address] [address] March, Diabetes mellitus E11.9 and Hypothyroid E03.9 [place] [address] [address] March, Diabetes mellitus E11.9 [place] [address] [address] March, Hypothyroid E03.9 and Elevated liver enz ymes R74.8 [place] [address] [address] March, Type 2 diabetes mellitus with hyperglyce regina E11.65 ; 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.4 ; Pulmonary emphysema, unspecified emphysema type J43.9 ; Hypothyroid E03.9 ; Neuropathy G62.9 ; Mixed hyperlipidemia E78.2 ; Chronic pain G89.29 ; Gastroesophageal reflux disease with esophagitis K21.0 ; Irritable bowel syndrome with diarrhea K58.0 ; Overactive bladder N32.81 and Recurrent major depressive disorder, in partial remission F33.41 [address] [place] [address] Feb, Chronic pain G89.29 [address] [place] [address] [address] Feb, Type 2 diabetes mellitus with hyperglyce regina E11.65 and Skin lesion of scalp L98.9 [place] [address] [address] Feb, [address] [address] [address] Jan, Type 2 diabetes mellitus with hyperglyce regina E11.65 ; 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.4 ; Essential (primary) hypertension I10 ; Pulmonary emphysema, unspecified emphysema type J43.9 ; Chronic pain G89.29 ; Controlled substance agreement signed Z79.899 ; Hypothyroid E03.9 ; Neuropathy G62.9 ; Gastroesophageal reflux disease with esophagitis K21.0 ; Overactive bladder N32.81 ; Depression F32.9 and Irritable bowel syndrome with diarrhea K58.0 [address] [place] [address] Jan, [address] [address] Jan, Controlled substance agreement signed Z7 9.899 [place] [address] [address] 08 Dec, 2017 Type 2 diabetes mellitus [...] treatment Z91.19 and Overweight (BMI 25.0-29.9) E66.3 [place] [place] [address] 02 Dec, 2017 Controlled substance agreement signed Z7 9.899 [place] [address] [address] Nov, Type 2 diabetes mellitus with hyperglyce regina E11.65 and Current non- adherence to medical treatment Z91.19 [place] [address] [address] Nov, [address] [address] [address] Nov, Chronic pain G89.29 [address] [place] [address] [address] Nov, [address] [address] [address] Nov, Hypothyroid E03.9 [address] [place] [address] [address] Nov, Hypothyroid E03.9 [place] [address] [address] Nov, Pulmonary emphysema, unspecified emphyse ma type J43.9 and Irritable bowel syndrome with diarrhea K58.0 [address] [place] [address] [address] Oct, [address] [place] [address] [address] Oct, [place] [address] [address] Oct, [address] [address] [address] Oct, [address] [place] [address] Oct, Chronic pain G89.29 [address] [place] [address] [address] Oct, Diabetes mellitus E11.9 ; Depression F32 .9 ; Mixed hyperlipidemia E78.2 ; Hypotension, unspecified hypotension type I95.9 ; Pulmonary emphysema, unspecified emphysema type J43.9 and Weight loss, unintentional R63.4 [address] [address] Oct, Chronic pain G89.29 [address] [place] [address] [address] Sep, Chronic pain G89.[address] [address] Sep, Hypothyroid E03.9 and Diabetes mellitus E11.9 [place] [address] [address] Aug, Type 2 diabetes mellitus with hyperglyce regina E11.65 ; 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.4 ; Essential (primary) hypertension I10 ; Hypothyroid E03.9 ; Neuropathy G62.9 ; Chronic pain G89.29 ; Mixed hyperlipidemia E78.2 and Encounter for immunization Z23 [address] [address] Aug, Chronic pain G89.29 [facility] [address] [address] Aug, Overactive bladder N32.81 ; Diabetes alvarez litus E11.9 and Chronic pain G89.29 [facility] [address] [place] [address] Jul, [facility] [address] [address] Jun, [facility] [address] [address] Jun, [facility] [address] [address] Jun, Hypothyroid E03.9 [facility] [address] [address] Jun, Diabetes mellitus E11.9 ; Hypothyroid E0 3.9 ; Neuropathy G62.9 ; Chronic pain G89.29 and Neck mass R22.1 [facility] [address] [address] Apr, [facility] [address] [address] Apr, Acute cystitis without hematuria N30.00 [facility] [address] [address] March, [facility] [address] [address] March, [facility] [address] [address] March, Near syncope R55 [facility] [address] [address] Feb, [facility] [address] [address] Feb, Chronic pain G89.29 [facility] [address] [address] Feb, [address] [address] Feb, [facility] [address] [address] Jan, Chronic pain G89.29 [facility] [address] [address] Jan, [facility] [address] [address] 16 Jan, 2017 [address] [place] [address] 14 Jan, 2017 Diabetes mellitus E11.9 ; Hypothyroid E0 3.9 ; GERD (gastroesophageal reflux disease) K21.9 ; Insomnia G47.00 ; Functional 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 ; Neuropathy G62.9 ; Depression F32.9 ; Chronic pain G89.29 ; Irritable bowel syndrome with diarrhea K58.0 ; Overactive bladder N32.81 ; Mixed hyperlipidemia E78.2 and Bronchitis J40 [address] [place] [address] Dec, [address] [address] Dec, [address] [place] [address] Dec, [address] [place] [address] Dec, [facility] [address] [address] Dec, Chronic pain G89.29 [address] [address] Dec, [address] [place] [address] Dec, [address] [place] [address] 17 Feb, 2017 Type 2 diabetes mellitus with foot ulcer E11.621 [facility] [address] [address] 17 Dec, 2016 Type 2 diabetes mellitus with foot ulcer E11.621 [address] [place] [address] 14 Dec, 2016 HTN (hypertension) I10 ; Depression F32. 9 ; Type 2 diabetes mellitus with foot ulcer E11.621 ; Functional 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 ; Irritable bowel syndrome with diarrhea K58.0 ; Chronic pain G89.29 ; Insomnia G47.00 ; Overactive bladder N32.81 ; Mixed hyperlipidemia E78.2 ; Gastroesophageal reflux disease with esophagitis K21.0 and Acquired hypothyroidism E03.9 [address] [place] [address] Nov, [address] [place] [address] Oct, [address] [address] Oct, [address] [place] [address] Oct, [address] [address] Sep, Functional 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 ; HTN (hyperte nsion) I10 ; Diabetes mellitus E11.9 ; Depression F32.9 ; Overactive bladder N32.81 ; Mixed hyperlipidemia E78.2 ; Gastroesophageal reflux disease without esophagitis K21.9 ; Chronic pain G89.29 ; Insomnia G47.00 and Acquired hypothyroidism E03.9 [address] [address] [address] Sep, [address] [address] Aug, Encounter for immunization Z23 [address] [address] Aug, [address] [place] [address] Jul, [address] [address] Jun, Type 2 diabetes mellitus without complic ations E11.9 ; HTN (hypertension) I10 ; Hypothyroid E03.9 ; Neuropathy G62.9 ; Depression F32.9 ; Chronic pain G89.29 ; GERD (gastroesophageal reflux disease) K21.9 ; Insomnia G47.00 ; Overactive bladder N32.81 ; Mixed hyperlipidemia E78.2 ; Diarrhea of infectious origin A09 and Environmental allergies Z91.09 [address] [place] [address] Apr, [address] [place] [address] March, Hypothyroidism, unspecified E03.9 and Mi xed hyperlipidemia E78.2 [address] [address] [address] March, Diabetes mellitus E11.9 ; HTN (hypertens ion) I10 ; Hypothyroid E03.9 ; Depression F32.9 ; Overactive bladder N32.81 ; Other chronic pain G89.29 ; Lumbago with sciatica, unspecified side M54.40 ; Environmental allergies Z91.09 and Gastroesophageal reflux disease, esophagitis presence not specified K21.9 [address] [place] [address] March, [address] [address] Jan, HTN (hypertension) I10 ; Hypothyroid E03 .9 ; Neuropathy G62.9 ; Diabetes mellitus E11.9 ; Chronic pain G89.29 ; GERD (gastroesophageal reflux disease) K21.9 ; Overactive bladder N32.81 and Depression F32.9 [address] [address] [address] Dec, Ear pain, left H92.02 ; HTN (hypertensio n) I10 ; Hypothyroid E03.9 ; Neuropathy G62.9 ; Diabetes mellitus E11.9 ; Depression F32.9 ; GERD (gastroesophageal reflux disease) K21.9 ; Insomnia G47.00 and Overactive bladder N32.81 [address] [place] [address] [address] Nov, Overactive bladder N32.81 and Chronic pa in G89.[address] [address] Nov, Kidney failure N19 [place] [address] [address] Nov, [address] [address] [address] Nov, [address] [address] [address] Nov, Diabetes mellitus E11.9 ; Depression F32 .9 ; Chronic pain G89.29 ; GERD (gastroesophageal reflux disease) K21.9 ; Insomnia G47.00 ; HTN (hypertension) I10 ; Hypothyroid E03.9 ; COPD (chronic obstructive pulmonary disease) J44.9 ; Bladder incontinence R32 and Incontinence R32 [address] [address] Sep, Type 2 diabetes mellitus with foot ulcer E11.621 and Chromosomal abnormality, 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 [address] Sep, [address] [address] [address] Aug, [place] [address] [address] Aug, [address] [address] Aug, HTN (hypertension) I10 ; Encounter for i mmunization Z23 ; Hypothyroid E03.9 ; Neuropathy G62.9 ; Diabetes mellitus E11.9 ; Depression F32.9 ; Chronic pain G89.29 ; GERD (gastroesophageal reflux disease) K21.9 ; Insomnia G47.00 and COPD (chronic obstructive pulmonary disease) J44.9 [address] [address] [address] Jun, [facility] [address] [address] Jun, [place] [address] [address] May, Essential hypertension, benign 401.1 ; U nspecified hypothyroidism 244.9 ; Insomnia, unspecified 780.52 ; Shortness of breath 786.05 ; Depression 311 ; COPD (chronic obstructive pulmonary disease) 496 ; GERD (gastroesophageal reflux disease) 530.81 and Diabetes 1.5, 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 [place] [address] [address] May, [place] [address] [address] May, [place] [address] [address] May, Shortness of breath 786.05 ; Essential h ypertension, benign 401.1 ; Diabetes mellitus 250.00 ; Hyperlipidemia 272.4 ; Hypothyroid 244.9 ; Insomnia 780.52 and Cough 786.2 [place] [address] [address] Apr, [address] [address] March, Shortness of breath 786.05 ; Nausea with vomiting 787.01 ; Essential hypertension, benign 401.1 ; Diabetes mellitus 250.00 ; Hyperlipidemia 272.4 and Hypothyroid 244.9 [place] [address] [address] Feb, [place] [address] [address] Feb, [address] [address] Jan, [facility] [address] [id number] [place] [address] Jan, [facility] [address] [id number] [place] [address] Jan, [facility] [address] [id number] [place] [address] Jan, [facility] [address] [id number] [place] [address] Jan, [facility] [address] [facility] [id number] [place] [address] Jan, [facility] [address] [id number] [place] [address] Jan, [facility] [address] [id number] [place] [address] Jan, [facility] [address] [id number] [place] [address] Jan, [facility] [address] [id number] [place] [address] Jan, [facility] [address] [id number] [place] [address] Dec, 2014 [facility] [address] [id number] [place] [address] Dec, 2014 [facility] [address] [id number] [place] [address] Dec, 2014 [facility] [address] [id number] [place] [address] Dec, 2014 [facility] [address] [id number] [place] [address] Dec, 2014 [facility] [address] [id number] [place] [address] Dec, 2014 [facility] [address] [id number] [place] [address] Dec, 2014 [facility] [address] [id number] [place] [address] Dec, 2014 [facility] [address] [id number] [place] [address] Dec, 2014 [facility] [address] [id number] [place] [address] Dec, 2014 [facility] [address] [id number] [place] [address] Oct, [facility] [address] [id number] [place] [address] Oct, [facility] [address] [id number] [place] [address] Oct, [facility] [address] [id number] [place] [address] Oct, [facility] [address] [id number] [place] [address] Oct, [facility] [address] [id number] [place] [address] Oct, [facility] [address] [id number] [place] [address] Oct, [facility] [address] [id number] [place] [address] Oct, [facility] [address] [id number] [place] [address] Oct, [facility] [address] [id number] [place] [address] Oct, [facility] [address] [id number] [place] [address] Oct, [facility] [address] [id number] [place] [address] Oct, [facility] [address] [id number] [place] [address] Oct, [facility] [address] [id number] [place] [address] Oct, [facility] [address] [id number] [place] [address] Sep, [facility] [address] [id number] [place] [address] Sep, [facility] [address] [id number] [place] [address] Sep, [facility] [address] [id number] [place] [address] Sep, [facility] [address] [facility] [id number] [place] [address] Sep, [facility] [address] [id number] [place] [address] Sep, [facility] [address] [id number] [place] [address] Sep, [facility] [address] [id number] [place] [address] Sep, [facility] [address] [id number] [place] [address] Sep, [facility] [address] [id number] [place] [address] Aug, [facility] [address] [id number] [place] [address] Aug, [facility] [address] [id number] [place] [address] Aug, [facility] [address] [id number] [place] [address] 17 Aug, 2014 [facility] [address] [id number] [place] [address] 16 Aug, 2014 [facility] [address] [id number] [place] [address] 13 Aug, 2014 [facility] [address] [id number] [place] [address] Aug, [facility] [address] [id number] [place] [address] Aug, [facility] [address] [id number] [place] [address] Aug, [facility] [address] [id number] [place] [address] Jul, [facility] [address] [id number] [place] [address] Jul, [facility] [address] [id number] [place] [address] Jul, [facility] [address] [id number] [place] [address] Jul, [facility] [address] [id number] [place] [address] Jul, [facility] [address] [id number] [place] [address] Jul, [facility] [address] [id number] [place] [address] Jul, [facility] [address] [id number] [place] [address] Jul, [facility] [address] [id number] [place] [address] Jul, [facility] [address] [id number] [place] [address] Jul, [facility] [address] [id number] [place] [address] Jun, [facility] [address] [id number] [place] [address] Jun, [facility] [address] [id number] [place] [address] Jun, [facility] [address] [id number] [place] [address] Jun, [facility] [address] [id number] [place] [address] Jun, [facility] [address] [id number] [place] [address] Jun, [facility] [address] [facility] [place] [id number] [place] [address] Jun, [facility] [address] [facility] [place] [id number] [place] [address] Jun, [facility] [address] [facility] [place] [id number] [place] [address] Jun, [facility] [address] [facility] [place] [id number] [place] [address] Jun, [facility] [address] [facility] [place] [id number] [place] [address] Jun, [facility] [address] [facility] [place] [id number] [place] [address] Jun, [facility] [address] [id number] [place] [address] May, [facility] [address] [facility] [place] [id number] [place] [address] May, [facility] [address] [id number] [place] [address] May, [facility] [address] [id number] [place] [address] May, [facility] [address] [id number] [place] [address] May, [facility] [address] [facility] [place] [id number] [place] [address] May, [facility] [address] [facility] [place] [id number] [place] [address] March, [facility] [address] [facility] [place] [id number] [place] [address] March, [facility] [address] [id number] [place] [address] March, [facility] [address] [id number] [place] [address] March, [facility] [address] [facility] [place] [id number] [place] [address] March, [facility] [address] [facility] [place] [id number] [place] [address] March, [facility] [address] [id number] [place] [address] Feb, [facility] [address] [facility] [place] [id number] [place] [address] Feb, [facility] [address] [facility] [place] [id number] [place] [address] Feb, [facility] [address] [id number] [place] [address] Feb, [facility] [address] [id number] [place] [address] Jan, [facility] [address] [id number] [place] [address] Jan, [facility] [address] [id number] [place] [address] Jan, [facility] [address] [id number] [place] [address] Jan, [facility] [address] [id number] [place] [address] Jan, [facility] [address] [id number] [place] [address] Jan, [facility] [address] [id number] [place] [address] Jan, [facility] [address] [id number] [place] [address] Jan, [facility] [address] [id number] [place] [address] Jan, [facility] [address] [id number] [place] [address] Jan, [facility] [address] [id number] [place] [address] Jan, [facility] [address] [id number] [place] [address] Jan, [facility] [address] [id number] [place] [address] Dec, [facility] [address] [id number] [place] [address] Dec, [facility] [address] [id number] [place] [address] Dec, [facility] [address] [id number] [place] [address] Dec, [facility] [address] [id number] [place] [address] Dec, [facility] [address] [id number] [place] [address] Dec, [facility] [address] [id number] [place] [address] Nov, [facility] [address] [id number] [place] [address] Nov, [facility] [address] [id number] [place] [address] Oct, [facility] [address] [id number] [place] [address] Oct, [facility] [address] [id number] [place] [address] Oct, [facility] [address] [id number] [place] [address] Oct, [facility] [address] [id number] [place] [address] Oct, [facility] [address] [id number] [place] [address] Oct, [facility] [address] [id number] [place] [address] Sep, [facility] [address] [id number] [place] [address] Sep, [facility] [address] [id number] [place] [address] Sep, [facility] [address] [id number] [place] [address] Sep, [facility] [address] [id number] [place] [address] Aug, [facility] [address] [facility] [place] [id number] [place] [address] Aug, [facility] [address] [id number] [place] [address] Aug, [facility] [address] [id number] [place] [address] Jul, [facility] [address] [id number] [place] [address] 14 Jul, 2013 [facility] [address] [id number] [place] [address] Jul, [facility] [address] [id number] [place] [address] Jun, [facility] [address] [id number] [place] [address] Jun, [facility] [address] [id number] [place] [address] Jun, [facility] [address] [id number] [place] [address] Apr, [facility] [address] [id number] [place] [address] Apr, [facility] [address] [id number] [place] [address] March, [facility] [address] [id number] [place] [address] March, [facility] [address] [id number] [place] [address] March, [facility] [address] [id number] [place] [address] March, [facility] [address] [id number] [place] [address] Feb, [facility] [address] [id number] [place] [address] Jan, [facility] [address] [id number] [place] [address] Dec, [facility] [address] [id number] [place] [address] Dec, [facility] [address] [id number] [place] [address] Dec, [facility] [address] [id number] [place] [address] Nov, [facility] [address] [id number] [place] [address] Oct, [facility] [address] [id number] [place] [address] Oct, [facility] [address] [id number] [place] [address] Sep, [facility] [address] [id number] [place] [address] Sep, [facility] [address] [id number] [place] [address] Sep, [facility] [address] [id number] [place] [address] Sep, [facility] [address] [id number] [place] [address] Sep, [facility] [address] [id number] [place] [address] Sep, [facility] [address] [id number] [place] [address] Sep, [facility] [address] [id number] [place] [address] 16 Aug, 2012 [facility] [address] [id number] [place] [address] 16 Aug, 2012 [facility] [address] [id number] [place] [address] Aug, [facility] [address] [id number] [place] [address] Aug, [facility] [address] [id number] [place] [address] Aug, [facility] [address] [id number] [place] [address] Aug, [facility] [address] [id number] [place] [address] Aug, [facility] [address] [id number] [place] [address] Aug, [facility] [address] [id number] [place] [address] Jul, [facility] [address] [id number] [place] [address] Jul, [facility] [address] [id number] [place] [address] Jun, [facility] [address] [id number] [place] [address] May, [facility] [address] [id number] [place] [address] Apr, [facility] [address] [id number] [place] [address] Apr, [facility] [address] [id number] [place] [address] Apr, [facility] [address] [id number] [place] [address] March, [facility] [address] [id number] [place] [address] March, [facility] [address] [facility] [place] [id number] [place] [address] March, [facility] [address] [id number] [place] [address] March, [facility] [address] [id number] [place] [address] March, [facility] [address] [id number] [place] [address] March, [facility] [address] [facility] [place] [id number] [place] [address] March, [facility] [address] [id number] [place] [address] Jan, [facility] [address] [id number] [place] [address] Jan, [facility] [address] [id number] [place] [address] Jan, [facility] [address] [id number] [place] [address] Jan, [facility] [address] [id number] [place] [address] Jan, [facility] [address] [id number] [place] [address] Dec, [facility] [address] [id number] [place] [address] Dec, [facility] [address] [id number] [place] [address] Nov, [facility] [address] [id number] [place] [address] Nov, [facility] [address] [id number] [place] [address] Nov, [facility] [address] [id number] [place] [address] Nov, [facility] [address] [id number] [place] [address] 21 Oct, 2011 [facility] [address] [id number] [place] [address] 06 Oct, 2011 [facility] [address] [id number] [place] [address] 14 Sep, 2011 [facility] [address] [id number] [place] [address] 10 Sep, 2011 [facility] [address] [id number] [place] [address] 10 Sep, 2011 [facility] [address] [id number] [place] [address] 11 May, 2011 [facility] [address] [id number] [place] [address] 20 Nov, 2010 [facility] [address] [id number] [place] [address] 29 Oct, 2010 [facility] [address] [id number] [place] [address] 14 Oct, 2010 [facility] [address] [id number] [place] [address] 08 Oct, 2010 [facility] [address] [id number] [place] [address] 15 Sep, 2010 [facility] [address] [id number] [place] [address] Sep, [facility] [address] [id number] [place] [address] Aug, [facility] [address] [id number] [place] [address] March, [facility] [address] [id number] [place] [address] 17 Oct, 2009 [facility] [address] [id number] [place] [address] 17 Oct, 2009 [facility] [address] [id number] [place] [address] Oct, [facility] [address] [id number] [place] [address] Oct, [facility] [address] [id number] [place] [address] Sep, [facility] [address] [id number] [place] [address] Sep, [facility] [address] [id number] [place] [address] Sep, [facility] [address] [id number] [place] [address] Aug, [facility] [address] [id number] [place] [address] Aug, [facility] [address] [id number] [place] [address] Aug, [facility] [address] [id number] [place] [address] Jan, IMMUNIZATIONS No Known Immunizations SOCIAL HISTORY [...]
--- OUTSIDE RECORDS SUMMARY | 2020-06-13 16:02 | XMS REPORT ---
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 Name Role Phone Migration, Doctor Unavailable Unavailable PROBLEMS Type Condition ICD9-CM Code CNA06-KH Code Onset Dates Condition S tatus SNOMED Code Problem Neuropathy G62.9 Active 194238309 Problem Chronic pain G89.29 Active 7441329 1 Problem Overactive bladder N32.81 Active 2 66343056 Problem Hypothyroid E03.9 Active 06894901 Problem Irritable bowel syndrome with diarrhea K58.0 Active 166018679 Problem [facility] 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 Z79.4 Active 800960490 Problem Type 2 diabetes mellitus with hyperglycemia E11.65 Active 13118155 Problem Chronic obstructive pulmonary disease, unspecified COPD ty pe J44.9 Active 65969099 Problem Gastroesophageal reflux disease with esophagitis K 21.0 Active 731427994 Problem Major depressive disorder, recurrent, in full remission F33.42 Active 68371457 Problem Mixed hyperlipidemia E78.2 Active 322297796 Problem Essential (primary) hypertension I10 Active 32154798 Problem Anxiety disorder, unspecified type F41.9 Active 068897588 Problem Gastroparesis K31.84 Active 532483 006 Problem 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 Active [id number] ALLERGIES No Information ENCOUNTERS Encounter Location Date Diagnosis [facility] [id number] [place] [address] Jan, [facility] [address] [address] 10 Dec, 2019 Chronic pain G89.29 [facility] [address] [address] 07 Dec, 2019 [facility] [address] [address] Dec, [facility] [address] [address] Nov, Chronic pain G89.29 [facility] [address] [address] Oct, Chronic pain G89.29 [facility] [address] [address] Sep, Chronic pain G89.29 [facility] [address] [address] Sep, Type 2 diabetes mellitus with diabetic a utonomic (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 ; Irritable bowel syndrome with diarrhea K58.0 ; Essential (primary) hypertension I10 and Encounter for immunization Z23 [facility] [address] [address] Aug, Chronic pain G89.29 [facility] [address] [address] Aug, [facility] [address] [address] Jul, Chronic pain G89.29 [facility] [address] [address] Jun, Other chronic pain G89.29 [facility] [address] [address] Jun, [facility] [address] [address] Jun, Chronic pain G89.29 [facility] [address] [address] Jun, Neuropathy G62.9 [facility] [address] [address] Jun, Encounter for Medicare annual wellness e xam Z00.00 ; Type 2 diabetes mellitus with hyperglycemia E11.65 ; Mixed hyperlipidemia E78.2 ; Hypothyroid E03.9 ; Gastroesophageal reflux disease with esophagitis K21.0 ; Essential (primary) hypertension I10 ; Major depressive disorder, recurrent, in full remission F33.42 ; Chronic obstructive pulmonary disease, unspecified COPD type J44.9 ; Neuropathy G62.9 and Encounter for immunization Z23 [facility] [address] [address] Jun, Irritable bowel syndrome with diarrhea K 58.0 [facility] [address] [address] May, Chronic pain G89.29 [facility] [address] [address] May, Type 2 diabetes mellitus with hyperglyce regina E11.65 and Neuropathy G62.9 [facility] [address] [address] May, Chronic pain G89.29 [facility] [address] [address] Apr, Poison maryam dermatitis L23.7 [facility] [address] [address] Apr, Chronic pain G89.29 [facility] [address] [address] March, Type 2 diabetes mellitus with hyperglyce regina E11.65 [facility] [address] [address] March, Chronic pain G89.29 [facility] [address] [address] March, [address] [place] [address] Feb, [facility] [address] [address] Feb, Other chronic pain G89.29 and Chronic pa in G89.29 [facility] [address] [address] Jan, Mixed hyperlipidemia E78.2 [facility] [address] [address] Jan, Chronic pain G89.29 [facility] [address] [address] 08 Jan, 2019 Type 2 diabetes mellitus with hyperglyce regina E11.65 ; Mixed hyperlipidemia E78.2 ; [facility] 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 Z79.4 ; Acquired hypothyroidism E03.9 and Essential (primary) hypertension I10 [facility] [address] [address] 11 Dec, 2018 Chronic pain G89.29 [facility] [address] [address] 14 Nov, 2018 Chronic pain G89.29 [facility] [address] [address] Nov, [facility] [address] [address] Oct, Chronic pain G89.29 [facility] [address] [address] Oct, [facility] [address] [address] Sep, [facility] [address] [address] Sep, Type 2 diabetes mellitus with hyperglyce regina E11.65 [facility] [address] [address] Sep, Chronic pain G89.29 [facility] [address] [address] Sep, [facility] [address] [address] Sep, Type 2 diabetes mellitus with hyperglyce regina E11.65 ; Irritable bowel syndrome with diarrhea K58.0 ; Gastroparesis K31.84 ; 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 and Dermatitis L30.9 [facility] [address] [address] Aug, Chronic pain G89.29 [facility] [address] [address] Jul, Chronic pain G89.29 [facility] [address] [address] Jun, Type 2 diabetes mellitus with hyperglyce regina E11.65 ; Neuropathy G62.9 ; Recurrent major depressive disorder, in partial remission F33.41 ; Chronic pain G89.29 and Hypertriglyceridemia E78.1 [facility] [address] [address] Jun, Hypothyroid E03.9 [facility] [address] [address] Jun, Major depressive disorder, recurrent epi sode, moderate F33.1 and Anxiety disorder, unspecified type F41.9 [facility] [address] [address] Jun, [facility] [address] [address] Jun, Type 2 diabetes mellitus with hyperglyce regina E11.65 ; [facility] 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 Z79.4 ; Recurrent major depressive disorder, in partial remission F33.41 ; Hypothyroid E03.9 ; Candidal dermatitis B37.2 and Weakness generalized R53.1 [facility] [address] [address] May, [facility] [address] [address] May, [facility] [address] [address] May, [facility] [address] [address] May, Generalized abdominal pain R10.84 and Ca ndidal dermatitis B37.2 [facility] [address] [address] May, [facility] [address] [address] May, [facility] [address] [address] May, Nodular radiologic density R93.8 ; Weigh t loss, unintentional R63.4 and Pulmonary emphysema, unspecified emphysema type J43.9 [facility] [address] [address] May, Chronic pain G89.29 [facility] [address] [address] 09 May, 2018 Syncope and collapse R55 ; Chronic fatig ue R53.[address] lung screening R91.8 [facility] [address] [address] May, [facility] [address] [address] Apr, Chronic fatigue R53.82 ; Abnormal chest CT R93.8 ; Elevated erythrocyte sedimentation rate R70.0 ; Hypothyroid E03.9 and Recurrent major depressive disorder, in partial remission F33.41 [facility] [address] [address] Apr, Hypothyroid E03.9 [facility] [address] [address] Apr, Depression F32.9 [facility] [address] [address] Apr, [facility] [address] [address] March, [facility] [address] [address] March, Hypothyroid E03.9 [facility] [address] [address] March, Diabetes mellitus E11.9 and Hypothyroid E03.9 [facility] [address] [address] March, Diabetes mellitus E11.9 [facility] [address] [address] March, Hypothyroid E03.9 and Elevated liver enz ymes R74.8 [facility] [address] [address] March, Type 2 diabetes mellitus with hyperglyce regina E11.65 ; [facility] 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 Z79.4 ; Pulmonary emphysema, unspecified emphysema type J43.9 ; Hypothyroid E03.9 ; Neuropathy G62.9 ; Mixed hyperlipidemia E78.2 ; Chronic pain G89.29 ; Gastroesophageal reflux disease with esophagitis K21.0 ; Irritable bowel syndrome with diarrhea K58.0 ; Overactive bladder N32.81 and Recurrent major depressive disorder, in partial remission F33.41 [facility] [address] [address] Feb, Chronic pain G89.[address] [address] Feb, Type 2 diabetes mellitus with hyperglyce regina E11.65 and Skin lesion of scalp L98.[address] [address] Feb, [facility] [address] [address] Jan, Type 2 diabetes mellitus with hyperglyce regina E11.65 ; [facility] 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 Z79.4 ; Essential (primary) hypertension I10 ; Pulmonary emphysema, unspecified emphysema type J43.9 ; Chronic pain G89.29 ; Controlled substance agreement signed Z79.899 ; Hypothyroid E03.9 ; Neuropathy G62.9 ; Gastroesophageal reflux disease with esophagitis K21.0 ; Overactive bladder N32.81 ; Depression F32.9 and Irritable bowel syndrome with diarrhea K58.0 [facility] [address] [address] Jan, [facility] [address] [address] Jan, Controlled substance agreement signed Z7 9.899 [facility] [address] [address] 08 Dec, 2017 Type 2 diabetes mellitus with hyperglyce regina E11.65 ; Controlled substance agreement signed Z79.899 ; [facility] 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 Z79.4 ; Essential (primary) hypertension I10 ; Hypothyroid E03.9 ; Neuropathy G62.9 ; Depression F32.9 ; Mixed hyperlipidemia E78.2 ; Irritable bowel syndrome with diarrhea K58.0 ; Gastroesophageal reflux disease with esophagitis K21.0 ; Thrombocytosis D47.3 ; Current non-adherence to medical treatment Z91.19 and Overweight (BMI 25.0-29.9) E66.3 [facility] [address] [address] 02 Dec, 2017 Controlled substance agreement signed Z7 9.899 [facility] [address] [address] Nov, Type 2 diabetes mellitus with hyperglyce regina E11.65 and Current non- adherence to medical treatment Z91.19 [facility] [address] [address] Nov, [facility] [address] [address] Nov, Chronic pain G89.29 [facility] [address] [address] Nov, [facility] [address] [address] Nov, Hypothyroid E03.9 [facility] [address] [address] Nov, Hypothyroid E03.9 [facility] [address] [address] Nov, Pulmonary emphysema, unspecified emphyse ma type J43.9 and Irritable bowel syndrome with diarrhea K58.0 [facility] [address] [address] Oct, [facility] [address] [address] Oct, [facility] [address] [address] Oct, [facility] [address] [address] Oct, [facility] [address] [address] Oct, Chronic pain G89.29 [facility] [address] [address] Oct, Diabetes mellitus E11.9 ; Depression F32 .9 ; Mixed hyperlipidemia E78.2 ; Hypotension, unspecified hypotension type I95.9 ; Pulmonary emphysema, unspecified emphysema type J43.9 and Weight loss, unintentional R63.4 [facility] [address] [address] Oct, Chronic pain G89.29 [facility] [address] [address] Sep, Chronic pain G89.29 [facility] [address] [address] Sep, Hypothyroid E03.9 and Diabetes mellitus E11.9 [facility] [address] [address] Aug, Type 2 diabetes mellitus with hyperglyce regina E11.65 ; [facility] 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 Z79.4 ; Essential (primary) hypertension I10 ; Hypothyroid E03.9 ; Neuropathy G62.9 ; Chronic pain G89.29 ; Mixed hyperlipidemia E78.2 and Encounter for immunization Z23 [facility] [address] [address] Aug, Chronic pain G89.29 [facility] [address] [address] Aug, Overactive bladder N32.81 ; Diabetes alvarez litus E11.9 and Chronic pain G89.29 [facility] [address] [address] Jul, [facility] [address] [address] Jun, [facility] [address] [address] Jun, [facility] [address] [address] Jun, Hypothyroid E03.9 [facility] [address] [address] Jun, Diabetes mellitus E11.9 ; Hypothyroid E0 3.9 ; Neuropathy G62.9 ; Chronic pain G89.29 and Neck mass R22.1 [facility] [address] [address] Apr, [facility] [address] [address] Apr, Acute cystitis without hematuria N30.00 [facility] [address] [address] March, [facility] [address] [address] March, [facility] [address] [address] March, Near syncope R55 [facility] [address] [address] Feb, [facility] [address] [address] Feb, Chronic pain G89.29 [facility] [address] [address] Feb, [facility] [address] [address] Feb, [facility] [address] [address] 24 Jan, 2017 Chronic pain G89.29 [facility] [address] [address] Jan, [facility] [address] [address] 16 Jan, 2017 [facility] [address] [address] 14 Jan, 2017 Diabetes mellitus E11.9 ; Hypothyroid E0 3.9 ; GERD (gastroesophageal reflux disease) K21.9 ; Insomnia G47.00 ; Functional 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 ; Neuropathy G62.9 ; Depression F32.9 ; Chronic pain G89.29 ; Irritable bowel syndrome with diarrhea K58.0 ; Overactive bladder N32.81 ; Mixed hyperlipidemia E78.2 and Bronchitis J40 [facility] [address] [address] Dec, [facility] [address] [address] Dec, [facility] [address] [address] Dec, [facility] [address] [address] Dec, [facility] [address] [address] Dec, Chronic pain G89.29 [facility] [address] [address] Dec, [facility] [address] [address] Dec, [facility] [address] [address] Dec, Type 2 diabetes mellitus with foot ulcer E11.621 [facility] [address] [address] 17 Feb, 2017 Type 2 diabetes mellitus with foot ulcer E11.621 [facility] [address] [address] 14 Dec, 2016 HTN (hypertension) I10 ; Depression F32. 9 ; Type 2 diabetes mellitus with foot ulcer E11.621 ; Functional 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 ; Irritable bowel syndrome with diarrhea K58.0 ; Chronic pain G89.29 ; Insomnia G47.00 ; Overactive bladder N32.81 ; Mixed hyperlipidemia E78.2 ; Gastroesophageal reflux disease with esophagitis K21.0 and Acquired hypothyroidism E03.9 [facility] [address] [address] Nov, [facility] [address] [address] Oct, [facility] [address] [address] Oct, [facility] [address] [address] Oct, [facility] [address] [address] Sep, Functional 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 ; HTN (hyperte nsion) I10 ; Diabetes mellitus E11.9 ; Depression F32.9 ; Overactive bladder N32.81 ; Mixed hyperlipidemia E78.2 ; Gastroesophageal reflux disease without esophagitis K21.9 ; Chronic pain G89.29 ; Insomnia G47.00 and Acquired hypothyroidism E03.9 [facility] [address] [address] Sep, [address] [address] Aug, Encounter for immunization Z23 [address] [address] Aug, [address] [address] Jul, [address] [address] Jun, Type 2 diabetes mellitus without complic ations E11.9 ; HTN (hypertension) I10 ; Hypothyroid E03.9 ; Neuropathy G62.9 ; Depression F32.9 ; Chronic pain G89.29 ; GERD (gastroesophageal reflux disease) K21.9 ; Insomnia G47.00 ; Overactive bladder N32.81 ; Mixed hyperlipidemia E78.2 ; Diarrhea of infectious origin A09 and Environmental allergies Z91.09 [facility] [address] [address] Apr, [facility] [address] [address] March, Hypothyroidism, unspecified E03.9 and Mi xed hyperlipidemia E78.2 [facility] [address] [address] March, Diabetes mellitus E11.9 ; HTN (hypertens ion) I10 ; Hypothyroid E03.9 ; Depression F32.9 ; Overactive bladder N32.81 ; Other chronic pain G89.29 ; Lumbago with sciatica, unspecified side M54.40 ; Environmental allergies Z91.09 and Gastroesophageal reflux disease, esophagitis presence not specified K21.9 [facility] [address] [address] March, [facility] [address] [address] Jan, HTN (hypertension) I10 ; Hypothyroid E03 .9 ; Neuropathy G62.9 ; Diabetes mellitus E11.9 ; Chronic pain G89.29 ; GERD (gastroesophageal reflux disease) K21.9 ; Overactive bladder N32.81 and Depression F32.9 [facility] [facility] [address] [address] Dec, Ear pain, left H92.02 ; HTN (hypertensio n) I10 ; Hypothyroid E03.9 ; Neuropathy G62.9 ; Diabetes mellitus E11.9 ; Depression F32.9 ; GERD (gastroesophageal reflux disease) K21.9 ; Insomnia G47.00 and Overactive bladder N32.81 [facility] [address] [address] 14 Nov, 2015 Overactive bladder N32.81 and Chronic pa in G89.29 [facility] [address] [address] 11 Nov, 2015 Kidney failure N19 [facility] [facility] [address] [address] Nov, [facility] [address] [address] 08 Nov, 2015 [facility] [address] [address] Nov, Diabetes mellitus E11.9 ; Depression F32 .9 ; Chronic pain G89.29 ; GERD (gastroesophageal reflux disease) K21.9 ; Insomnia G47.00 ; HTN (hypertension) I10 ; Hypothyroid E03.9 ; COPD (chronic obstructive pulmonary disease) J44.9 ; Bladder incontinence R32 and Incontinence R32 [facility] [address] [address] Sep, Type 2 diabetes mellitus with foot ulcer E11.621 and Chromosomal abnormality, 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 [facility] [address] [address] Sep, [facility] [address] [address] Aug, [facility] [address] [address] Aug, [address] [address] Aug, HTN (hypertension) I10 ; Encounter for i mmunization Z23 ; Hypothyroid E03.9 ; Neuropathy G62.9 ; Diabetes mellitus E11.9 ; Depression F32.9 ; Chronic pain G89.29 ; GERD (gastroesophageal reflux disease) K21.9 ; Insomnia G47.00 and COPD (chronic obstructive pulmonary disease) J44.9 [facility] [id number] [place] [address] Jun, [facility] [address] [address] Jun, [facility] [address] [address] May, Essential hypertension, benign 401.1 ; U nspecified hypothyroidism 244.9 ; Insomnia, unspecified 780.52 ; Shortness of breath 786.05 ; Depression 311 ; COPD (chronic obstructive pulmonary disease) 496 ; GERD (gastroesophageal reflux disease) 530.81 and Diabetes 1.5, 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 [facility] [address] [address] May, [facility] [address] [address] May, [facility] [address] [address] May, Shortness of breath 786.05 ; Essential h ypertension, benign 401.1 ; Diabetes mellitus 250.00 ; Hyperlipidemia 272.4 ; Hypothyroid 244.9 ; Insomnia 780.52 and Cough 786.2 [facility] [address] [address] Apr, [facility] [address] [address] March, Shortness of breath 786.05 ; Nausea with vomiting 787.01 ; Essential hypertension, benign 401.1 ; Diabetes mellitus 250.00 ; Hyperlipidemia 272.4 and Hypothyroid 244.9 [facility] [address] [address] Feb, [facility] [address] [address] Feb, [facility] [address] [address] Jan, [facility] [address] [address] Jan, [facility] [address] [id number] [place] [address] Jan, [facility] [address] [id number] [place] [address] Jan, [facility] [address] [id number] [place] [address] Jan, 2014 [facility] [address] [id number] [place] [address] Jan, 2014 [facility] [address] [id number] [place] [address] Jan, [facility] [address] [id number] [place] [address] Jan, [facility] [address] [id number] [place] [address] Jan, [facility] [address] [id number] [place] [address] Jan, [facility] [address] [id number] [place] [address] Dec, 2014 [facility] [address] [id number] [place] [address] Dec, 2014 [facility] [address] [id number] [place] [address] Dec, 2014 [facility] [address] [id number] [place] [address] Dec, 2014 [facility] [address] [id number] [place] [address] Dec, 2014 [facility] [address] [id number] [place] [address] Dec, 2014 [facility] [address] [id number] [place] [address] Dec, 2014 [facility] [address] [id number] [place] [address] Dec, 2014 [facility] [address] [id number] [place] [address] 04 Dec, 2014 [facility] [address] [id number] [place] [address] Dec, [facility] [address] [id number] [place] [address] Oct, [facility] [address] [id number] [place] [address] Oct, [facility] [address] [id number] [place] [address] Oct, [facility] [address] [id number] [place] [address] Oct, [facility] [address] [id number] [place] [address] Oct, [facility] [address] [id number] [place] [address] Oct, [facility] [address] [id number] [place] [address] Oct, [facility] [address] [id number] [place] [address] Oct, [facility] [address] [id number] [place] [address] Oct, [facility] [address] [id number] [place] [address] Oct, [facility] [address] [id number] [place] [address] Oct, [facility] [address] [id number] [place] [address] Oct, [facility] [address] [id number] [place] [address] Oct, [facility] [address] [id number] [place] [address] Oct, [facility] [address] [id number] [place] [address] Sep, [facility] [address] [id number] [place] [address] Sep, [facility] [address] [id number] [place] [address] Sep, [facility] [address] [id number] [place] [address] Sep, [facility] [address] [id number] [place] [address] Sep, [facility] [address] [id number] [place] [address] Sep, [facility] [address] [id number] [place] [address] Sep, [facility] [address] [id number] [place] [address] Sep, [facility] [address] [id number] [place] [address] Sep, [facility] [address] [id number] [place] [address] Aug, [facility] [address] [id number] [place] [address] Aug, [facility] [address] [id number] [place] [address] Aug, [facility] [address] [id number] [place] [address] Aug, [facility] [address] [id number] [place] [address] Aug, [facility] [facility] [address] [id number] [place] [address] Aug, [facility] [place] [facility] [address] [id number] [place] [address] Aug, [facility] [place] [facility] [address] [id number] [place] [address] Aug, [facility] [place] [facility] [address] [id number] [place] [address] Aug, [facility] [place] [facility] [address] [facility] [id number] [facility] [place] [address] Jul, [facility] [place] [facility] [address] [facility] [id number] [facility] [place] [address] Jul, [facility] [place] [facility] [address] [id number] [facility] [place] [address] Jul, [facility] [place] [facility] [address] [facility] [id number] [place] [address] Jul, [facility] [place] [facility] [address] [facility] [id number] [facility] [place] [address] Jul, [facility] [place] [facility] [address] [facility] [id number] [facility] [place] [address] Jul, [facility] [place] [facility] [address] [id number] [facility] [place] [address] Jul, [facility] [place] [facility] [address] [id number] [facility] [place] [address] Jul, [facility] [place] [facility] [address] [facility] [id number] [facility] [place] [address] Jul, [facility] [place] [facility] [address] [id number] [facility] [place] [address] Jul, [facility] [place] [facility] [address] [id number] [place] [address] Jun, [facility] [place] [facility] [address] [id number] [facility] [place] [address] Jun, [facility] [place] [facility] [address] [facility] [id number] [facility] [place] [address] Jun, [facility] [place] [facility] [address] [id number] [place] [address] Jun, [facility] [place] [facility] [address] [facility] [id number] [facility] [place] [address] Jun, [facility] [place] [facility] [address] [id number] [place] [address] Jun, [facility] [place] [facility] [address] [id number] [facility] [place] [address] Jun, [facility] [place] [facility] [address] [id number] [facility] [place] [address] Jun, [facility] [place] [facility] [address] [facility] [id number] [place] [address] Jun, [facility] [place] [facility] [address] [facility] [id number] [place] [address] Jun, [facility] [place] [facility] [address] [facility] [id number] [place] [address] Jun, [facility] [place] [facility] [address] [facility] [id number] [place] [address] Jun, [facility] [place] [facility] [address] [facility] [id number] [place] [address] May, [facility] [place] [facility] [address] [id number] [place] [address] May, [facility] [place] [facility] [address] [id number] [place] [address] May, [facility] [place] [facility] [address] [facility] [id number] [place] [address] May, [facility] [place] [facility] [address] [id number] [place] [address] May, [facility] [place] [facility] [address] [id number] [place] [address] May, [facility] [place] [facility] [address] [facility] [id number] [place] [address] March, [facility] [place] [facility] [address] [facility] [id number] [place] [address] March, [facility] [place] [facility] [address] [id number] [place] [address] March, [facility] [place] [facility] [address] [facility] [id number] [place] [address] March, [facility] [place] [facility] [address] [id number] [place] [address] March, [facility] [place] [facility] [address] [id number] [place] [address] March, [facility] [place] [facility] [address] [id number] [place] [address] Feb, [facility] [place] [facility] [address] [id number] [place] [address] Feb, [facility] [place] [facility] [address] [id number] [place] [address] Feb, [facility] [place] [facility] [address] [facility] [id number] [place] [address] Feb, [facility] [place] [facility] [address] [id number] [place] [address] Jan, [facility] [place] [facility] [address] [id number] [place] [address] Jan, [facility] [place] [facility] [address] [id number] [place] [address] Jan, [facility] [place] [facility] [address] [id number] [place] [address] Jan, [facility] [place] [facility] [address] [id number] [place] [address] Jan, [facility] [place] [facility] [address] [id number] [place] [address] Jan, [facility] [place] [facility] [address] [id number] [place] [address] Jan, [facility] [place] [facility] [address] [id number] [place] [address] Jan, [facility] [place] [facility] [address] [id number] [place] [address] Jan, [facility] [place] [facility] [address] [id number] [place] [address] Jan, [facility] [place] [facility] [address] [id number] [place] [address] Jan, [facility] [place] [facility] [address] [id number] [place] [address] Jan, [facility] [place] [facility] [address] [facility] [id number] [place] [address] Dec, [facility] [place] [facility] [address] [id number] [place] [address] Dec, [facility] [place] [facility] [address] [id number] [place] [address] Dec, [facility] [place] [facility] [address] [id number] [place] [address] Dec, [facility] [place] [facility] [address] [id number] [place] [address] Dec, [facility] [place] [facility] [address] [id number] [place] [address] Dec, [facility] [place] [facility] [address] [id number] [place] [address] Nov, [facility] [place] [facility] [address] [id number] [place] [address] Nov, [facility] [place] [facility] [address] [id number] [place] [address] Oct, [facility] [place] [facility] [address] [id number] [place] [address] Oct, [facility] [place] [facility] [address] [id number] [place] [address] Oct, [facility] [place] [facility] [address] [id number] [place] [address] Oct, [facility] [place] [facility] [address] [id number] [place] [address] Oct, [facility] [place] [facility] [address] [id number] [place] [address] Oct, [facility] [place] [facility] [address] [id number] [place] [address] Sep, [facility] [place] [facility] [address] [id number] [place] [address] Sep, [facility] [place] [facility] [address] [id number] [place] [address] Sep, [facility] [place] [facility] [address] [id number] [place] [address] Sep, [facility] [place] [facility] [address] [id number] [place] [address] Aug, [facility] [place] [facility] [address] [id number] [place] [address] Aug, [facility] [place] [facility] [address] [id number] [place] [address] Aug, [facility] [place] [facility] [address] [id number] [place] [address] Jul, [facility] [place] [facility] [address] [id number] [place] [address] Jul, [facility] [place] [facility] [address] [id number] [place] [address] Jul, [facility] [place] [facility] [address] [id number] [place] [address] Jun, [facility] [place] [facility] [address] [id number] [place] [address] Jun, [facility] [place] [facility] [address] [id number] [place] [address] Jun, [facility] [place] [facility] [address] [id number] [place] [address] Apr, [facility] [place] [facility] [address] [id number] [place] [address] Apr, [facility] [place] [facility] [address] [id number] [place] [address] March, [facility] [place] [facility] [address] [id number] [place] [address] March, [facility] [place] [facility] [address] [id number] [place] [address] March, [facility] [place] [facility] [address] [id number] [place] [address] March, [facility] [place] [facility] [address] [id number] [place] [address] Feb, [facility] [place] [facility] [address] [id number] [place] [address] Jan, [facility] [place] [facility] [address] [id number] [place] [address] 13 Dec, 2012 [facility] [place] [facility] [address] [id number] [place] [address] 08 Dec, 2012 [facility] [place] [facility] [address] [id number] [place] [address] Dec, [facility] [place] [facility] [address] [id number] [place] [address] Nov, [facility] [place] [facility] [address] [id number] [place] [address] Oct, [facility] [place] [facility] [address] [id number] [place] [address] Oct, [facility] [place] [facility] [address] [id number] [place] [address] Sep, [facility] [place] [facility] [id number] [place] [address] Sep, [facility] [place] [facility] [address] [id number] [place] [address] Sep, [facility] [place] [facility] [address] [id number] [place] [address] Sep, [facility] [place] [facility] [address] [id number] [place] [address] Sep, [facility] [place] [facility] [address] [id number] [place] [address] Sep, [facility] [place] [facility] [address] [id number] [place] [address] Sep, [facility] [place] [facility] [address] [id number] [place] [address] Aug, [facility] [place] [facility] [address] [id number] [place] [address] 16 Aug, 2012 [facility] [place] [facility] [address] [facility] [id number] [place] [address] 10 Aug, 2012 [facility] [place] [facility] [address] [id number] [place] [address] 10 Aug, 2012 [facility] [place] [facility] [address] [id number] [place] [address] 08 Aug, 2012 [facility] [place] [facility] [address] [id number] [place] [address] 08 Aug, 2012 [facility] [place] [facility] [address] [id number] [place] [address] Aug, [facility] [place] [facility] [address] [id number] [place] [address] Aug, [facility] [place] [facility] [address] [id number] [place] [address] Jul, [facility] [place] [facility] [address] [id number] [place] [address] Jul, [facility] [place] [facility] [address] [id number] [place] [address] Jun, [facility] [place] [facility] [address] [id number] [place] [address] May, [facility] [place] [facility] [address] [id number] [place] [address] Apr, [facility] [place] [facility] [address] [id number] [place] [address] Apr, [facility] [place] [facility] [address] [id number] [place] [address] Apr, [facility] [place] [facility] [address] [id number] [place] [address] March, [facility] [place] [facility] [address] [id number] [place] [address] March, [facility] [place] [facility] [address] [id number] [place] [address] March, [facility] [address] [id number] [place] [address] March, [facility] [address] [id number] [place] [address] March, [facility] [place] [facility] [address] [id number] [place] [address] March, [facility] [address] [id number] [place] [address] March, [facility] [place] [facility] [address] [id number] [place] [address] Jan, [facility] [address] [id number] [place] [address] Jan, [facility] [place] [facility] [address] [id number] [place] [address] Jan, [facility] [address] [id number] [place] [address] Jan, [facility] [place] [facility] [address] [id number] [place] [address] Jan, [facility] [place] [facility] [address] [id number] [place] [address] Dec, [facility] [place] [facility] [address] [id number] [place] [address] Dec, [facility] [place] [facility] [address] [id number] [place] [address] Nov, [facility] [place] [facility] [address] [id number] [place] [address] Nov, [facility] [place] [facility] [address] [id number] [place] [address] Nov, [facility] [place] [facility] [address] [id number] [place] [address] Nov, [facility] [place] [facility] [address] [id number] [place] [address] Oct, [facility] [place] [facility] [address] [id number] [place] [address] 06 Oct, 2011 [facility] [place] [facility] [address] [id number] [place] [address] 14 Sep, 2011 [facility] [place] [facility] [address] [id number] [place] [address] 10 Sep, 2011 [facility] [place] [facility] [address] [id number] [place] [address] 10 Sep, 2011 [facility] [place] [facility] [address] [id number] [place] [address] 11 May, 2011 [facility] [place] [facility] [address] [id number] [place] [address] 20 Nov, 2010 [facility] [place] [facility] [address] [id number] [place] [address] 29 Oct, 2010 [facility] [place] [facility] [address] [id number] [place] [address] 14 Oct, 2010 [facility] [place] [facility] [address] [id number] [place] [address] 08 Oct, 2010 [facility] [place] [facility] [address] [id number] [place] [address] 15 Sep, 2010 [facility] [place] [facility] [address] [id number] [place] [address] Sep, [facility] [place] [facility] [address] [id number] [place] [address] Aug, [facility] [place] [facility] [address] [id number] [place] [address] March, [facility] [place] [facility] [address] [id number] [place] [address] Oct, [facility] [place] [facility] [address] [id number] [place] [address] 17 Oct, 2009 [facility] [place] [facility] [address] [id number] [place] [address] Oct, [facility] [place] [facility] [address] [id number] [place] [address] Oct, [facility] [place] [facility] [address] [id number] [place] [address] Sep[facility] [address] [id number] [place] [address] Sep, [facility] [address] [id number] [place] [address] Sep, [facility] [address] [id number] [place] [address] Aug, [facility] [id number] [place] [address] Aug, [facility] [id number] [place] [address] Aug, [facility] [address] [id number] [place] [address] Jan, IMMUNIZATIONS No Known Immunizations SOCIAL HISTORY [...]
--- OUTSIDE RECORDS SUMMARY | 2020-06-13 16:03 | XMS REPORT ---
Author Author Jah Durant Doctor Organization [facility] [place] Address Unknown Phone Unavailable Care Team Providers Care Certified Scrum Master Name Role Phone Migration, Doctor Unavailable Unavailable PROBLEMS Type Condition ICD9-CM Code [id number] Code Onset Dates Condition S tatus SNOMED Code Problem Neuropathy G62.9 Active 653614423 Problem Chronic pain G89.29 Active 1222275 1 Problem Overactive bladder N32.81 Active 2 66366567 Problem Hypothyroid E03.9 Active 77484822 Problem Irritable bowel syndrome with diarrhea K58.0 Active 485677072 Problem nursing home 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 Z79.4 Active 847420099 Problem Type 2 diabetes mellitus with hyperglycemia E11.65 Active 20833238 Problem Chronic obstructive pulmonary disease, unspecified COPD ty pe J44.9 Active 44020936 Problem Gastroesophageal reflux disease with esophagitis K 21.0 Active 221875433 Problem Major depressive disorder, recurrent, in full remission F33.42 Active 85093861 Problem Mixed hyperlipidemia E78.2 Active 332577055 Problem Essential (primary) hypertension I10 Active 66982072 Problem Anxiety disorder, unspecified type F41.9 Active 608416808 Problem Gastroparesis K31.84 Active 136880 006 Problem 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 Active 252678953 ALLERGIES No Information ENCOUNTERS Encounter Location Date Diagnosis [place] [facility] [id number] [place] [address] Jan, [facility] [address] [address] 10 Dec, 2019 Chronic pain G89.29 [facility] [address] [address] 07 Dec, 2019 [facility] [address] [address] Dec, [place] [address] [address] Nov, Chronic pain G89.29 [place] [address] [address] Oct, Chronic pain G89.29 [place] [place] [address] [address] Sep, Chronic pain G89.29 [place] [address] [address] Sep, Type 2 diabetes mellitus with diabetic a utonomic (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 ; Irritable bowel syndrome with diarrhea K58.0 ; Essential (primary) hypertension I10 and Encounter for immunization Z23 [place] [address] [address] Aug, Chronic pain G89.29 [place] [address] [address] Aug, [place] [address] [address] Jul, Chronic pain G89.29 [place] [address] [address] Jun, Other chronic pain G89.29 [place] [address] [address] Jun, [place] [address] [address] Jun, Chronic pain G89.29 [place] [address] [address] Jun, Neuropathy G62.9 [place] [address] [address] Jun, Encounter for Medicare annual wellness e xam Z00.00 ; Type 2 diabetes mellitus with hyperglycemia E11.65 ; Mixed hyperlipidemia E78.2 ; Hypothyroid E03.9 ; Gastroesophageal reflux disease with esophagitis K21.0 ; Essential (primary) hypertension I10 ; Major depressive disorder, recurrent, in full remission F33.42 ; Chronic obstructive pulmonary disease, unspecified COPD type J44.9 ; Neuropathy G62.9 and Encounter for immunization Z23 [place] [address] [address] Jun, Irritable bowel syndrome with diarrhea K 58.0 [place] [address] [address] May, Chronic pain G89.29 [place] [address] [address] May, Type 2 diabetes mellitus with hyperglyce regina E11.65 and Neuropathy G62.9 [place] [address] [address] May, Chronic pain G89.29 [facility] [address] [address] Apr, Poison maryam dermatitis L23.7 [facility] [address] [address] Apr, Chronic pain G89.29 [place] [address] [address] March, Type 2 diabetes mellitus with hyperglyce regina E11.65 [place] [address] [address] March, Chronic pain G89.29 [facility] [address] [address] March, [address] [place] [address] Feb, [place] [address] [address] Feb, Other chronic pain G89.29 and Chronic pa in G89.29 [place] [address] [address] Jan, Mixed hyperlipidemia E78.2 [facility] [address] [address] Jan, Chronic pain G89.29 [place] [address] [address] 08 Jan, 2019 Type 2 diabetes mellitus with hyperglyce regina E11.65 ; Mixed hyperlipidemia E78.2 ; nursing home 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 Z79.4 ; Acquired hypothyroidism E03.9 and Essential (primary) hypertension I10 [place] [address] [address] 11 Dec, 2018 Chronic pain G89.29 [place] [address] [address] 14 Nov, 2018 Chronic pain G89.29 [facility] [address] [address] Nov, [place] [address] [address] Oct, Chronic pain G89.29 [place] [address] [address] Oct, [facility] [place] [address] [address] Sep, [place] [address] [address] Sep, Type 2 diabetes mellitus with hyperglyce regina E11.65 [place] [address] [address] Sep, Chronic pain G89.29 [facility] [address] [address] Sep, [place] [address] [address] Sep, Type 2 diabetes mellitus with hyperglyce regina E11.65 ; Irritable bowel syndrome with diarrhea K58.0 ; Gastroparesis K31.84 ; 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 and Dermatitis L30.9 [place] [address] [address] Aug, Chronic pain G89.29 [place] [address] [address] Jul, Chronic pain G89.29 [place] [address] [address] Jun, Type 2 diabetes mellitus with hyperglyce regina E11.65 ; Neuropathy G62.9 ; Recurrent major depressive disorder, in partial remission F33.41 ; Chronic pain G89.29 and Hypertriglyceridemia E78.1 [facility] [address] [address] Jun, Hypothyroid E03.9 [place] [address] [address] Jun, Major depressive disorder, recurrent epi sode, moderate F33.1 and Anxiety disorder, unspecified type F41.9 [place] [address] [address] Jun, [place] [address] [address] Jun, Type 2 diabetes mellitus with hyperglyce regina E11.65 ; nursing home 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 Z79.4 ; Recurrent major depressive disorder, in partial remission F33.41 ; Hypothyroid E03.9 ; Candidal dermatitis B37.2 and Weakness generalized R53.1 [place] [address] [address] May, [place] [address] [address] May, [place] [address] [address] May, [place] [address] [address] May, Generalized abdominal pain R10.84 and Ca ndidal dermatitis B37.2 [place] [address] [address] May, [place] [address] [address] May, [place] [address] [address] May, Nodular radiologic density R93.8 ; Weigh t loss, unintentional R63.4 and Pulmonary emphysema, unspecified emphysema type J43.9 [facility] [address] [address] May, Chronic pain G89.29 [place] [address] [address] 09 May, 2018 Syncope and collapse R55 ; Chronic fatig ue R53.[address] lung screening R91.8 [place] [address] [address] May, [place] [address] [address] Apr, Chronic fatigue R53.82 ; Abnormal chest CT R93.8 ; Elevated erythrocyte sedimentation rate R70.0 ; Hypothyroid E03.9 and Recurrent major depressive disorder, in partial remission F33.41 [place] [address] [address] Apr, Hypothyroid E03.9 [place] [address] [address] Apr, Depression F32.9 [place] [address] [address] Apr, [place] [address] [address] March, [place] [address] [address] March, Hypothyroid E03.9 [place] [address] [address] March, Diabetes mellitus E11.9 and Hypothyroid E03.9 [place] [address] [address] March, Diabetes mellitus E11.9 [place] [address] [address] March, Hypothyroid E03.9 and Elevated liver enz ymes R74.8 [place] [address] [address] March, Type 2 diabetes mellitus with hyperglyce regina E11.65 ; nursing home 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 Z79.4 ; Pulmonary emphysema, unspecified emphysema type J43.9 ; Hypothyroid E03.9 ; Neuropathy G62.9 ; Mixed hyperlipidemia E78.2 ; Chronic pain G89.29 ; Gastroesophageal reflux disease with esophagitis K21.0 ; Irritable bowel syndrome with diarrhea K58.0 ; Overactive bladder N32.81 and Recurrent major depressive disorder, in partial remission F33.41 [place] [address] [address] Feb, Chronic pain G89.[address] [address] Feb, Type 2 diabetes mellitus with hyperglyce regina E11.65 and Skin lesion of scalp L98.[address] [address] Feb, [place] [address] [address] Jan, Type 2 diabetes mellitus with hyperglyce regina E11.65 ; nursing home 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 Z79.4 ; Essential (primary) hypertension I10 ; Pulmonary emphysema, unspecified emphysema type J43.9 ; Chronic pain G89.29 ; Controlled substance agreement signed Z79.899 ; Hypothyroid E03.9 ; Neuropathy G62.9 ; Gastroesophageal reflux disease with esophagitis K21.0 ; Overactive bladder N32.81 ; Depression F32.9 and Irritable bowel syndrome with diarrhea K58.0 [place] [address] [address] Jan, [place] [address] [address] Jan, Controlled substance agreement signed Z7 9.899 [place] [address] [address] 08 Dec, 2017 Type 2 diabetes mellitus with hyperglyce regina E11.65 ; Controlled substance agreement signed Z79.899 ; nursing home 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 Z79.4 ; Essential (primary) hypertension I10 ; Hypothyroid E03.9 ; Neuropathy G62.9 ; Depression F32.9 ; Mixed hyperlipidemia E78.2 ; Irritable bowel syndrome with diarrhea K58.0 ; Gastroesophageal reflux disease with esophagitis K21.0 ; Thrombocytosis D47.3 ; Current non-adherence to medical treatment Z91.19 and Overweight (BMI 25.0-29.9) E66.3 [place] [address] [address] 02 Dec, 2017 Controlled substance agreement signed Z7 9.899 [place] [address] [address] Nov, Type 2 diabetes mellitus with hyperglyce regina E11.65 and Current non- adherence to medical treatment Z91.19 [place] [address] [address] Nov, [place] [address] [address] Nov, Chronic pain G89.29 [place] [address] [address] Nov, [place] [address] [address] Nov, Hypothyroid E03.9 [place] [address] [address] Nov, Hypothyroid E03.9 [place] [address] [address] Nov, Pulmonary emphysema, unspecified emphyse ma type J43.9 and Irritable bowel syndrome with diarrhea K58.0 [place] [address] [address] Oct, [place] [address] [address] Oct, [place] [address] [address] Oct, [place] [address] [address] Oct, [place] [address] [address] Oct, Chronic pain G89.29 [place] [address] [address] Oct, Diabetes mellitus E11.9 ; Depression F32 .9 ; Mixed hyperlipidemia E78.2 ; Hypotension, unspecified hypotension type I95.9 ; Pulmonary emphysema, unspecified emphysema type J43.9 and Weight loss, unintentional R63.4 [place] [address] [address] Oct, Chronic pain G89.29 [place] [address] [address] Sep, Chronic pain G89.29 [place] [address] [address] Sep, Hypothyroid E03.9 and Diabetes mellitus E11.9 [place] [address] [address] Aug, Type 2 diabetes mellitus with hyperglyce regina E11.65 ; nursing home 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 Z79.4 ; Essential (primary) hypertension I10 ; Hypothyroid E03.9 ; Neuropathy G62.9 ; Chronic pain G89.29 ; Mixed hyperlipidemia E78.2 and Encounter for immunization Z23 [place] [address] [address] Aug, Chronic pain G89.29 [place] [address] [address] Aug, Overactive bladder N32.81 ; Diabetes alvarez litus E11.9 and Chronic pain G89.29 [facility] [address] [address] Jul, [facility] [address] [address] Jun, [facility] [address] [address] Jun, [facility] [address] [address] Jun, Hypothyroid E03.9 [facility] [address] [address] Jun, Diabetes mellitus E11.9 ; Hypothyroid E0 3.9 ; Neuropathy G62.9 ; Chronic pain G89.29 and Neck mass R22.1 [facility] [address] [address] Apr, [facility] [address] [address] Apr, Acute cystitis without hematuria N30.00 [facility] [address] [address] March, [facility] [address] [address] March, [facility] [address] [address] March, Near syncope R55 [facility] [address] [address] Feb, [facility] [address] [address] Feb, Chronic pain G89.29 [facility] [address] [address] Feb, [facility] [address] [address] Feb, [place] [address] [address] 24 Jan, 2017 Chronic pain G89.29 [place] [address] [address] Jan, [place] [address] [address] 16 Jan, 2017 [place] [address] [address] 14 Jan, 2017 Diabetes mellitus E11.9 ; Hypothyroid E0 3.9 ; GERD (gastroesophageal reflux disease) K21.9 ; Insomnia G47.00 ; Functional 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 ; Neuropathy G62.9 ; Depression F32.9 ; Chronic pain G89.29 ; Irritable bowel syndrome with diarrhea K58.0 ; Overactive bladder N32.81 ; Mixed hyperlipidemia E78.2 and Bronchitis J40 [place] [address] [address] Dec, [place] [address] [address] Dec, [place] [address] [address] Dec, [place] [address] [address] Dec, [place] [address] [address] Dec, Chronic pain G89.29 [place] [address] [address] Dec, [place] [address] [address] Dec, [place] [address] [address] Dec, Type 2 diabetes mellitus with foot ulcer E11.621 [place] [address] [address] 17 Feb, 2017 Type 2 diabetes mellitus with foot ulcer E11.621 [place] [address] [address] 14 Dec, 2016 HTN (hypertension) I10 ; Depression F32. 9 ; Type 2 diabetes mellitus with foot ulcer E11.621 ; Functional 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 ; Irritable bowel syndrome with diarrhea K58.0 ; Chronic pain G89.29 ; Insomnia G47.00 ; Overactive bladder N32.81 ; Mixed hyperlipidemia E78.2 ; Gastroesophageal reflux disease with esophagitis K21.0 and Acquired hypothyroidism E03.9 [place] [address] [address] Nov, [place] [address] [address] Oct, [place] [address] [address] Oct, [place] [address] [address] Oct, [place] [address] [address] Sep, Functional 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 ; HTN (hyperte nsion) I10 ; Diabetes mellitus E11.9 ; Depression F32.9 ; Overactive bladder N32.81 ; Mixed hyperlipidemia E78.2 ; Gastroesophageal reflux disease without esophagitis K21.9 ; Chronic pain G89.29 ; Insomnia G47.00 and Acquired hypothyroidism E03.9 [place] [address] [address] Sep, [address] [address] Aug, Encounter for immunization Z23 [address] [address] Aug, [address] [address] Jul, [address] [address] Jun, Type 2 diabetes mellitus without complic ations E11.9 ; HTN (hypertension) I10 ; Hypothyroid E03.9 ; Neuropathy G62.9 ; Depression F32.9 ; Chronic pain G89.29 ; GERD (gastroesophageal reflux disease) K21.9 ; Insomnia G47.00 ; Overactive bladder N32.81 ; Mixed hyperlipidemia E78.2 ; Diarrhea of infectious origin A09 and Environmental allergies Z91.09 [place] [address] [address] Apr, [place] [address] [address] March, Hypothyroidism, unspecified E03.9 and Mi xed hyperlipidemia E78.2 [place] [address] [address] March, Diabetes mellitus E11.9 ; HTN (hypertens ion) I10 ; Hypothyroid E03.9 ; Depression F32.9 ; Overactive bladder N32.81 ; Other chronic pain G89.29 ; Lumbago with sciatica, unspecified side M54.40 ; Environmental allergies Z91.09 and Gastroesophageal reflux disease, esophagitis presence not specified K21.9 [place] [address] [address] March, [place] [address] [address] Jan, HTN (hypertension) I10 ; Hypothyroid E03 .9 ; Neuropathy G62.9 ; Diabetes mellitus E11.9 ; Chronic pain G89.29 ; GERD (gastroesophageal reflux disease) K21.9 ; Overactive bladder N32.81 and Depression F32.9 [place] [address] [address] Dec, Ear pain, left H92.02 ; HTN (hypertensio n) I10 ; Hypothyroid E03.9 ; Neuropathy G62.9 ; Diabetes mellitus E11.9 ; Depression F32.9 ; GERD (gastroesophageal reflux disease) K21.9 ; Insomnia G47.00 and Overactive bladder N32.81 [place] [address] [address] 14 Nov, 2015 Overactive bladder N32.81 and Chronic pa in G89.29 [place] [address] [address] 11 Nov, 2015 Kidney failure N19 [place] [address] [address] Nov, [place] [address] [address] 08 Nov, 2015 [place] [address] [address] Nov, Diabetes mellitus E11.9 ; Depression F32 .9 ; Chronic pain G89.29 ; GERD (gastroesophageal reflux disease) K21.9 ; Insomnia G47.00 ; HTN (hypertension) I10 ; Hypothyroid E03.9 ; COPD (chronic obstructive pulmonary disease) J44.9 ; Bladder incontinence R32 and Incontinence R32 [place] [address] [address] Sep, Type 2 diabetes mellitus with foot ulcer E11.621 and Chromosomal abnormality, 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 [place] [address] [address] Sep, [place] [address] [address] Aug, [place] [address] [address] Aug, [address] [address] Aug, HTN (hypertension) I10 ; Encounter for i mmunization Z23 ; Hypothyroid E03.9 ; Neuropathy G62.9 ; Diabetes mellitus E11.9 ; Depression F32.9 ; Chronic pain G89.29 ; GERD (gastroesophageal reflux disease) K21.9 ; Insomnia G47.00 and COPD (chronic obstructive pulmonary disease) J44.9 [place] [id number] [place] [address] Jun, [facility] [address] [address] Jun, [facility] [address] [address] May, Essential hypertension, benign 401.1 ; U nspecified hypothyroidism 244.9 ; Insomnia, unspecified 780.52 ; Shortness of breath 786.05 ; Depression 311 ; COPD (chronic obstructive pulmonary disease) 496 ; GERD (gastroesophageal reflux disease) 530.81 and Diabetes 1.5, 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 [facility] [address] [address] May, [facility] [address] [address] May, [facility] [address] [address] May, Shortness of breath 786.05 ; Essential h ypertension, benign 401.1 ; Diabetes mellitus 250.00 ; Hyperlipidemia 272.4 ; Hypothyroid 244.9 ; Insomnia 780.52 and Cough 786.2 [facility] [address] [address] Apr, [facility] [address] [address] March, Shortness of breath 786.05 ; Nausea with vomiting 787.01 ; Essential hypertension, benign 401.1 ; Diabetes mellitus 250.00 ; Hyperlipidemia 272.4 and Hypothyroid 244.9 [facility] [address] [address] Feb, [facility] [address] [address] Feb, [facility] [address] [address] Jan, [facility] [address] [address] Jan, [facility] [address] [id number] [place] [address] Jan, [facility] [address] [id number] [place] [address] Jan, [facility] [address] [id number] [place] [address] Jan, 2014 [facility] [address] [id number] [place] [address] Jan, 2014 [facility] [address] [id number] [place] [address] Jan, [facility] [address] [id number] [place] [address] Jan, [facility] [address] [id number] [place] [address] Jan, [facility] [address] [id number] [place] [address] Jan, [facility] [address] [id number] [place] [address] Dec, 2014 [facility] [address] [id number] [place] [address] Dec, 2014 [facility] [address] [id number] [place] [address] Dec, 2014 [facility] [address] [id number] [place] [address] Dec, 2014 [facility] [address] [id number] [place] [address] Dec, 2014 [facility] [address] [id number] [place] [address] Dec, 2014 [facility] [address] [id number] [place] [address] Dec, 2014 [facility] [address] [id number] [place] [address] Dec, 2014 [facility] [address] [id number] [place] [address] 04 Dec, 2014 [facility] [address] [id number] [place] [address] Dec, [facility] [address] [id number] [place] [address] Oct, [facility] [address] [id number] [place] [address] Oct, [facility] [address] [id number] [place] [address] Oct, [facility] [address] [id number] [place] [address] Oct, [facility] [address] [id number] [place] [address] Oct, [facility] [address] [id number] [place] [address] Oct, [facility] [address] [id number] [place] [address] Oct, [facility] [address] [id number] [place] [address] Oct, [facility] [address] [id number] [place] [address] Oct, [facility] [address] [id number] [place] [address] Oct, [facility] [address] [id number] [place] [address] Oct, [facility] [address] [id number] [place] [address] Oct, [facility] [address] [id number] [place] [address] Oct, [facility] [address] [id number] [place] [address] Oct, [facility] [address] [id number] [place] [address] Sep, [facility] [address] [id number] [place] [address] Sep, [facility] [address] [id number] [place] [address] Sep, [facility] [address] [id number] [place] [address] Sep, [facility] [address] [id number] [place] [address] Sep, [facility] [address] [id number] [place] [address] Sep, [facility] [address] [id number] [place] [address] Sep, [facility] [address] [id number] [place] [address] Sep, [facility] [address] [id number] [place] [address] Sep, [facility] [address] [id number] [place] [address] Aug, [facility] [address] [id number] [place] [address] Aug, [facility] [address] [id number] [place] [address] Aug, [facility] [address] [id number] [place] [address] Aug, [facility] [address] [id number] [place] [address] Aug, [facility] [address] [id number] [place] [address] Aug, [facility] [address] [id number] [place] [address] Aug, [facility] [address] [id number] [place] [address] Aug, [facility] [address] [id number] [place] [address] Aug, [facility] [address] [facility] [id number] [facility] [place] [address] Jul, [facility] [place] [facility] [address] [facility] [id number] [facility] [place] [address] Jul, [facility] [place] [facility] [address] [id number] [facility] [place] [address] Jul, [facility] [place] [facility] [address] [facility] [id number] [place] [address] Jul, [facility] [place] [facility] [address] [facility] [id number] [facility] [place] [address] Jul, [facility] [place] [facility] [address] [facility] [id number] [facility] [place] [address] Jul, [facility] [place] [facility] [address] [id number] [facility] [place] [address] Jul, [facility] [place] [facility] [address] [id number] [facility] [place] [address] Jul, [facility] [place] [facility] [address] [facility] [id number] [facility] [place] [address] Jul, [facility] [place] [facility] [address] [id number] [facility] [place] [address] Jul, [facility] [place] [facility] [address] [id number] [place] [address] Jun, [facility] [place] [facility] [address] [id number] [facility] [place] [address] Jun, [facility] [place] [facility] [address] [facility] [id number] [facility] [place] [address] Jun, [facility] [place] [facility] [address] [id number] [place] [address] Jun, [facility] [place] [facility] [address] [facility] [id number] [facility] [place] [address] Jun, [facility] [place] [facility] [address] [id number] [place] [address] Jun, [facility] [place] [facility] [address] [id number] [facility] [place] [address] Jun, [facility] [place] [facility] [address] [id number] [facility] [place] [address] Jun, [facility] [place] [facility] [address] [facility] [id number] [place] [address] Jun, [facility] [place] [facility] [address] [facility] [id number] [place] [address] Jun, [facility] [place] [facility] [address] [facility] [id number] [place] [address] Jun, [facility] [place] [facility] [address] [facility] [id number] [place] [address] Jun, [facility] [place] [facility] [address] [facility] [id number] [place] [address] May, [facility] [place] [facility] [address] [id number] [place] [address] May, [facility] [place] [facility] [address] [id number] [place] [address] May, [facility] [place] [facility] [address] [facility] [id number] [place] [address] May, [facility] [place] [facility] [address] [id number] [place] [address] May, [facility] [place] [facility] [address] [id number] [place] [address] May, [facility] [place] [facility] [address] [facility] [id number] [place] [address] March, [facility] [place] [facility] [address] [facility] [id number] [place] [address] March, [facility] [place] [facility] [address] [id number] [place] [address] March, [facility] [place] [facility] [address] [facility] [id number] [place] [address] March, [facility] [place] [facility] [address] [id number] [place] [address] March, [facility] [place] [facility] [address] [id number] [place] [address] March, [facility] [place] [facility] [address] [id number] [place] [address] Feb, [facility] [place] [facility] [address] [id number] [place] [address] Feb, [facility] [place] [facility] [address] [id number] [place] [address] Feb, [facility] [place] [facility] [address] [facility] [id number] [place] [address] Feb, [facility] [place] [facility] [address] [id number] [place] [address] Jan, [facility] [place] [facility] [address] [id number] [place] [address] Jan, [facility] [place] [facility] [address] [id number] [place] [address] Jan, [facility] [place] [facility] [address] [id number] [place] [address] Jan, [facility] [place] [facility] [address] [id number] [place] [address] Jan, [facility] [place] [facility] [address] [id number] [place] [address] Jan, [facility] [place] [facility] [address] [id number] [place] [address] Jan, [facility] [place] [facility] [address] [id number] [place] [address] Jan, [facility] [place] [facility] [address] [id number] [place] [address] Jan, [facility] [place] [facility] [address] [id number] [place] [address] Jan, [facility] [place] [facility] [address] [id number] [place] [address] Jan, [facility] [place] [facility] [address] [id number] [place] [address] Jan, [facility] [place] [facility] [address] [facility] [id number] [place] [address] Dec, [facility] [place] [facility] [address] [id number] [place] [address] Dec, [facility] [place] [facility] [address] [id number] [place] [address] Dec, [facility] [place] [facility] [address] [id number] [place] [address] Dec, [facility] [place] [facility] [address] [id number] [place] [address] Dec, [facility] [place] [facility] [address] [id number] [place] [address] Dec, [facility] [place] [facility] [address] [id number] [place] [address] Nov, [facility] [place] [facility] [address] [id number] [place] [address] Nov, [facility] [place] [facility] [address] [id number] [place] [address] Oct, [facility] [place] [facility] [address] [id number] [place] [address] Oct, [facility] [place] [facility] [address] [id number] [place] [address] Oct, [facility] [place] [facility] [address] [id number] [place] [address] Oct, [facility] [place] [facility] [address] [id number] [place] [address] Oct, [facility] [place] [facility] [address] [id number] [place] [address] Oct, [facility] [place] [facility] [address] [id number] [place] [address] Sep, [facility] [place] [facility] [address] [id number] [place] [address] Sep, [facility] [place] [facility] [address] [id number] [place] [address] Sep, [facility] [place] [facility] [address] [id number] [place] [address] Sep, [facility] [place] [facility] [address] [id number] [place] [address] Aug, [facility] [place] [facility] [address] [id number] [place] [address] Aug, [facility] [place] [facility] [address] [id number] [place] [address] Aug, [facility] [place] [facility] [address] [id number] [place] [address] Jul, [facility] [place] [facility] [address] [id number] [place] [address] Jul, [facility] [place] [facility] [address] [id number] [place] [address] Jul, [facility] [place] [facility] [address] [id number] [place] [address] Jun, [facility] [place] [facility] [address] [id number] [place] [address] Jun, [facility] [place] [facility] [address] [id number] [place] [address] Jun, [facility] [place] [facility] [address] [id number] [place] [address] Apr, [facility] [place] [facility] [address] [id number] [place] [address] Apr, [facility] [place] [facility] [address] [id number] [place] [address] March, [facility] [place] [facility] [address] [id number] [place] [address] March, [facility] [place] [facility] [address] [id number] [place] [address] March, [facility] [place] [facility] [address] [id number] [place] [address] March, [facility] [place] [facility] [address] [id number] [place] [address] Feb, [facility] [place] [facility] [address] [id number] [place] [address] Jan, [facility] [place] [facility] [address] [id number] [place] [address] 13 Dec, 2012 [facility] [place] [facility] [address] [id number] [place] [address] 08 Dec, 2012 [facility] [place] [facility] [address] [id number] [place] [address] Dec, [facility] [place] [facility] [address] [id number] [place] [address] Nov, [facility] [place] [facility] [address] [id number] [place] [address] Oct, [facility] [place] [facility] [address] [id number] [place] [address] Oct, [facility] [place] [facility] [address] [id number] [place] [address] Sep, [facility] [place] [facility] [id number] [place] [address] Sep, [facility] [place] [facility] [address] [id number] [place] [address] Sep, [facility] [place] [facility] [address] [id number] [place] [address] Sep, [facility] [place] [facility] [address] [id number] [place] [address] Sep, [facility] [place] [facility] [address] [id number] [place] [address] Sep, [facility] [place] [facility] [address] [id number] [place] [address] Sep, [facility] [place] [facility] [address] [id number] [place] [address] Aug, [facility] [place] [facility] [address] [id number] [place] [address] 16 Aug, 2012 [facility] [place] [facility] [address] [facility] [id number] [place] [address] 10 Aug, 2012 [facility] [place] [facility] [address] [id number] [place] [address] 10 Aug, 2012 [facility] [place] [facility] [address] [id number] [place] [address] 08 Aug, 2012 [facility] [place] [facility] [address] [id number] [place] [address] 08 Aug, 2012 [facility] [place] [facility] [address] [id number] [place] [address] Aug, [facility] [place] [facility] [address] [id number] [place] [address] Aug, [facility] [place] [facility] [address] [id number] [place] [address] Jul, [facility] [place] [facility] [address] [id number] [place] [address] Jul, [facility] [place] [facility] [address] [id number] [place] [address] Jun, [facility] [place] [facility] [address] [id number] [place] [address] May, [facility] [place] [facility] [address] [id number] [place] [address] Apr, [facility] [place] [facility] [address] [id number] [place] [address] Apr, [facility] [place] [facility] [address] [id number] [place] [address] Apr, [facility] [place] [facility] [address] [id number] [place] [address] March, [facility] [place] [facility] [address] [id number] [place] [address] March, [facility] [place] [facility] [address] [id number] [place] [address] March[facility] [address] [id number] [place] [address] March, [facility] [address] [id number] [place] [address] March, [facility] [place] [facility] [address] [id number] [place] [address] March, [facility] [address] [id number] [place] [address] March, [facility] [place] [facility] [address] [id number] [place] [address] Jan, [facility] [address] [id number] [place] [address] Jan, [facility] [place] [facility] [address] [id number] [place] [address] Jan, [facility] [address] [id number] [place] [address] Jan, [facility] [place] [facility] [address] [id number] [place] [address] Jan, [facility] [place] [place] [facility] [address] [id number] [place] [address] Dec, [facility] [place] [place] [facility] [address] [id number] [place] [address] Dec, [facility] [place] [place] [facility] [address] [id number] [place] [address] Nov, [facility] [place] [place] [facility] [address] [id number] [place] [address] Nov, [facility] [place] [facility] [address] [id number] [place] [address] Nov, [facility] [place] [facility] [address] [id number] [place] [address] Nov, [facility] [place] [facility] [address] [id number] [place] [address] Oct, [facility] [place] [place] [facility] [address] [id number] [place] [address] 06 Oct, 2011 [facility] [place] [facility] [address] [id number] [place] [address] 14 Sep, 2011 [facility] [place] [facility] [address] [id number] [place] [address] 10 Sep, 2011 [facility] [place] [facility] [address] [id number] [place] [address] 10 Sep, 2011 [facility] [place] [facility] [address] [id number] [place] [address] 11 May, 2011 [facility] [place] [facility] [address] [id number] [place] [address] 20 Nov, 2010 [facility] [place] [facility] [address] [id number] [place] [address] 29 Oct, 2010 [facility] [place] [facility] [address] [id number] [place] [address] 14 Oct, 2010 [facility] [place] [facility] [address] [id number] [place] [address] 08 Oct, 2010 [facility] [place] [facility] [address] [id number] [place] [address] 15 Sep, 2010 [facility] [place] [facility] [address] [id number] [place] [address] Sep, [facility] [place] [facility] [address] [id number] [place] [address] Aug, [facility] [place] [facility] [address] [id number] [place] [address] March, [facility] [place] [facility] [address] [id number] [place] [address] Oct, [facility] [place] [facility] [address] [id number] [place] [address] 17 Oct, 2009 [facility] [place] [facility] [address] [id number] [place] [address] Oct, [facility] [place] [facility] [address] [id number] [place] [address] Oct, [facility] [place] [facility] [address] [id number] [place] [address] Sep, [facility] [address] [id number] [place] [address] Sep, [facility] [address] [id number] [place] [address] Sep, [facility] [address] [id number] [place] [address] Aug, [facility] [id number] [place] [address] Aug, [facility] [id number] [place] [address] Aug, [facility] [address] [id number] [place] [address] Jan, IMMUNIZATIONS No Known Immunizations SOCIAL HISTORY [...]
--- OUTSIDE RECORDS SUMMARY | 2020-06-13 16:03 | XMS REPORT ---
Author Author Jah Durant Doctor Organization [facility] Address Unknown Phone Unavailable Care Team Providers Care Uniform Force Captain Name Role Phone Migration, Doctor Unavailable Unavailable PROBLEMS Type Condition ICD9-CM Code VVC24-IJ Code Onset Dates Condition S tatus SNOMED Code Problem Neuropathy G62.9 Active 143548017 Problem Chronic pain G89.29 Active 9680692 1 Problem Overactive bladder N32.81 Active 2 98476934 Problem Hypothyroid E03.9 Active 03006421 Problem Irritable bowel syndrome with diarrhea K58.0 Active 238259586 Problem longterm 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 Z79.4 Active 908758304 Problem Type 2 diabetes mellitus with hyperglycemia E11.65 Active 93962096 Problem Chronic obstructive pulmonary disease, unspecified COPD ty pe J44.9 Active 47223268 Problem Gastroesophageal reflux disease with esophagitis K 21.0 Active 593097304 Problem Major depressive disorder, recurrent, in full remission F33.42 Active 69422307 Problem Mixed hyperlipidemia E78.2 Active 430494519 Problem Essential (primary) hypertension I10 Active 60966502 Problem Anxiety disorder, unspecified type F41.9 Active 954931539 Problem Gastroparesis K31.84 Active 890985 006 Problem 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 Active 892100622 ALLERGIES No Information ENCOUNTERS Encounter Location Date Diagnosis [place] [id number] [place] [address] Jan, [facility] [address] [address] 10 Dec, 2019 Chronic pain G89.29 [facility] [address] [address] 07 Dec, 2019 [facility] [address] [address] Dec, [place] [address] [address] Nov, Chronic pain G89.29 [place] [address] [address] Oct, Chronic pain G89.29 [place] [address] [address] Sep, Chronic pain G89.29 [place] [address] [address] Sep, Type 2 diabetes mellitus with diabetic a utonomic (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 ; Irritable bowel syndrome with diarrhea K58.0 ; Essential (primary) hypertension I10 and Encounter for immunization Z23 [place] [address] [address] Aug, Chronic pain G89.29 [place] [address] [address] Aug, [place] [address] [address] Jul, Chronic pain G89.29 [place] [address] [address] Jun, Other chronic pain G89.29 [place] [address] [address] Jun, [place] [address] [address] Jun, Chronic pain G89.29 [place] [address] [address] Jun, Neuropathy G62.9 [place] [address] [address] Jun, Encounter for Medicare annual wellness e xam Z00.00 ; Type 2 diabetes mellitus with hyperglycemia E11.65 ; Mixed hyperlipidemia E78.2 ; Hypothyroid E03.9 ; Gastroesophageal reflux disease with esophagitis K21.0 ; Essential (primary) hypertension I10 ; Major depressive disorder, recurrent, in full remission F33.42 ; Chronic obstructive pulmonary disease, unspecified COPD type J44.9 ; Neuropathy G62.9 and Encounter for immunization Z23 [place] [address] [address] Jun, Irritable bowel syndrome with diarrhea K 58.0 [place] [address] [address] May, Chronic pain G89.29 [place] [address] [address] May, Type 2 diabetes mellitus with hyperglyce regina E11.65 and Neuropathy G62.9 [place] [address] [address] May, Chronic pain G89.29 [place] [address] [address] Apr, Poison maryam dermatitis L23.7 [place] [address] [address] Apr, Chronic pain G89.29 [place] [address] [address] March, Type 2 diabetes mellitus with hyperglyce regina E11.65 [place] [address] [address] March, Chronic pain G89.29 [place] [address] [address] March, [address] [place] [address] Feb, [place] [address] [address] Feb, Other chronic pain G89.29 and Chronic pa in G89.29 [place] [address] [address] Jan, Mixed hyperlipidemia E78.2 [place] [address] [address] Jan, Chronic pain G89.29 [place] [address] [address] 08 Jan, 2019 Type 2 diabetes mellitus with hyperglyce regina E11.65 ; Mixed hyperlipidemia E78.2 ; longterm 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 Z79.4 ; Acquired hypothyroidism E03.9 and Essential (primary) hypertension I10 [place] [address] [address] 11 Dec, 2018 Chronic pain G89.29 [place] [address] [address] 14 Nov, 2018 Chronic pain G89.29 [place] [address] [address] Nov, [place] [address] [address] Oct, Chronic pain G89.29 [place] [address] [address] Oct, [place] [address] [address] Sep, [place] [address] [address] Sep, Type 2 diabetes mellitus with hyperglyce regina E11.65 [place] [address] [address] Sep, Chronic pain G89.29 [place] [address] [address] Sep, [place] [address] [address] Sep, Type 2 diabetes mellitus with hyperglyce regina E11.65 ; Irritable bowel syndrome with diarrhea K58.0 ; Gastroparesis K31.84 ; 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 and Dermatitis L30.9 [place] [address] [address] Aug, Chronic pain G89.29 [place] [address] [address] Jul, Chronic pain G89.29 [place] [address] [address] Jun, Type 2 diabetes mellitus with hyperglyce regina E11.65 ; Neuropathy G62.9 ; Recurrent major depressive disorder, in partial remission F33.41 ; Chronic pain G89.29 and Hypertriglyceridemia E78.1 [place] [address] [address] Jun, Hypothyroid E03.9 [place] [address] [address] Jun, Major depressive disorder, recurrent epi sode, moderate F33.1 and Anxiety disorder, unspecified type F41.9 [place] [address] [address] Jun, [place] [address] [address] Jun, Type 2 diabetes mellitus with hyperglyce regina E11.65 ; longterm 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 Z79.4 ; Recurrent major depressive disorder, in partial remission F33.41 ; Hypothyroid E03.9 ; Candidal dermatitis B37.2 and Weakness generalized R53.1 [place] [address] [address] May, [place] [address] [address] May, [place] [address] [address] May, [place] [address] [address] May, Generalized abdominal pain R10.84 and Ca ndidal dermatitis B37.2 [place] [address] [address] May, [place] [address] [address] May, [place] [address] [address] May, Nodular radiologic density R93.8 ; Weigh t loss, unintentional R63.4 and Pulmonary emphysema, unspecified emphysema type J43.9 [place] [address] [address] May, Chronic pain G89.29 [place] [address] [address] 09 May, 2018 Syncope and collapse R55 ; Chronic fatig ue R53.[address] lung screening R91.8 [place] [address] [address] May, [place] [address] [address] Apr, Chronic fatigue R53.82 ; Abnormal chest CT R93.8 ; Elevated erythrocyte sedimentation rate R70.0 ; Hypothyroid E03.9 and Recurrent major depressive disorder, in partial remission F33.41 [place] [address] [address] Apr, Hypothyroid E03.9 [place] [address] [address] Apr, Depression F32.9 [place] [address] [address] Apr, [place] [address] [address] March, [place] [address] [address] March, Hypothyroid E03.9 [place] [address] [address] March, Diabetes mellitus E11.9 and Hypothyroid E03.9 [place] [address] [address] March, Diabetes mellitus E11.9 [place] [address] [address] March, Hypothyroid E03.9 and Elevated liver enz ymes R74.8 [place] [address] [address] March, Type 2 diabetes mellitus with hyperglyce regina E11.65 ; longterm 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 Z79.4 ; Pulmonary emphysema, unspecified emphysema type J43.9 ; Hypothyroid E03.9 ; Neuropathy G62.9 ; Mixed hyperlipidemia E78.2 ; Chronic pain G89.29 ; Gastroesophageal reflux disease with esophagitis K21.0 ; Irritable bowel syndrome with diarrhea K58.0 ; Overactive bladder N32.81 and Recurrent major depressive disorder, in partial remission F33.41 [place] [address] [address] Feb, Chronic pain G89.[address] [address] Feb, Type 2 diabetes mellitus with hyperglyce regina E11.65 and Skin lesion of scalp L98.[address] [address] Feb, [place] [address] [address] Jan, Type 2 diabetes mellitus with hyperglyce regina E11.65 ; longterm 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 Z79.4 ; Essential (primary) hypertension I10 ; Pulmonary emphysema, unspecified emphysema type J43.9 ; Chronic pain G89.29 ; Controlled substance agreement signed Z79.899 ; Hypothyroid E03.9 ; Neuropathy G62.9 ; Gastroesophageal reflux disease with esophagitis K21.0 ; Overactive bladder N32.81 ; Depression F32.9 and Irritable bowel syndrome with diarrhea K58.0 [place] [address] [address] Jan, [place] [address] [address] Jan, Controlled substance agreement signed Z7 9.899 [place] [address] [address] 08 Dec, 2017 Type 2 diabetes mellitus [...] treatment Z91.19 and Overweight (BMI 25.0-29.9) E66.3 [place] [address] [address] 02 Dec, 2017 Controlled substance agreement signed Z7 9.899 [place] [address] [address] Nov, Type 2 diabetes mellitus with hyperglyce regina E11.65 and Current non- adherence to medical treatment Z91.19 [place] [address] [address] Nov, [place] [address] [address] Nov, Chronic pain G89.29 [place] [address] [address] Nov, [place] [address] [address] Nov, Hypothyroid E03.9 [place] [address] [address] Nov, Hypothyroid E03.9 [place] [address] [address] Nov, Pulmonary emphysema, unspecified emphyse ma type J43.9 and Irritable bowel syndrome with diarrhea K58.0 [place] [address] [address] Oct, [place] [address] [address] Oct, [place] [address] [address] Oct, [place] [address] [address] Oct, [place] [address] [address] Oct, Chronic pain G89.29 [place] [address] [address] Oct, Diabetes mellitus E11.9 ; Depression F32 .9 ; Mixed hyperlipidemia E78.2 ; Hypotension, unspecified hypotension type I95.9 ; Pulmonary emphysema, unspecified emphysema type J43.9 and Weight loss, unintentional R63.4 [place] [address] [address] Oct, Chronic pain G89.29 [place] [address] [address] Sep, Chronic pain G89.29 [place] [address] [address] Sep, Hypothyroid E03.9 and Diabetes mellitus E11.9 [place] [address] [address] Aug, Type 2 diabetes mellitus with hyperglyce regina E11.65 ; longterm 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 Z79.4 ; Essential (primary) hypertension I10 ; Hypothyroid E03.9 ; Neuropathy G62.9 ; Chronic pain G89.29 ; Mixed hyperlipidemia E78.2 and Encounter for immunization Z23 [place] [address] [address] Aug, Chronic pain G89.29 [place] [address] [address] Aug, Overactive bladder N32.81 ; Diabetes alvarez litus E11.9 and Chronic pain G89.29 [facility] [address] [address] Jul, [facility] [address] [address] Jun, [facility] [address] [address] Jun, [facility] [address] [address] Jun, Hypothyroid E03.9 [facility] [address] [address] Jun, Diabetes mellitus E11.9 ; Hypothyroid E0 3.9 ; Neuropathy G62.9 ; Chronic pain G89.29 and Neck mass R22.1 [facility] [address] [address] Apr, [facility] [address] [address] Apr, Acute cystitis without hematuria N30.00 [facility] [address] [address] March, [facility] [address] [address] March, [facility] [address] [address] March, Near syncope R55 [facility] [address] [address] Feb, [facility] [address] [address] Feb, Chronic pain G89.29 [facility] [address] [address] Feb, [facility] [address] [address] Feb, [place] [address] [address] 24 Jan, 2017 Chronic pain G89.29 [place] [address] [address] Jan, [place] [address] [address] 16 Jan, 2017 [place] [address] [address] 14 Jan, 2017 Diabetes mellitus E11.9 ; Hypothyroid E0 3.9 ; GERD (gastroesophageal reflux disease) K21.9 ; Insomnia G47.00 ; Functional 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 ; Neuropathy G62.9 ; Depression F32.9 ; Chronic pain G89.29 ; Irritable bowel syndrome with diarrhea K58.0 ; Overactive bladder N32.81 ; Mixed hyperlipidemia E78.2 and Bronchitis J40 [place] [address] [address] Dec, [place] [address] [address] Dec, [place] [address] [address] Dec, [place] [address] [address] Dec, [place] [address] [address] Dec, Chronic pain G89.29 [place] [address] [address] Dec, [place] [address] [address] Dec, [place] [address] [address] Dec, Type 2 diabetes mellitus with foot ulcer E11.621 [place] [address] [address] 17 Feb, 2017 Type 2 diabetes mellitus with foot ulcer E11.621 [place] [address] [address] 14 Dec, 2016 HTN (hypertension) I10 ; Depression F32. 9 ; Type 2 diabetes mellitus with foot ulcer E11.621 ; Functional 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 ; Irritable bowel syndrome with diarrhea K58.0 ; Chronic pain G89.29 ; Insomnia G47.00 ; Overactive bladder N32.81 ; Mixed hyperlipidemia E78.2 ; Gastroesophageal reflux disease with esophagitis K21.0 and Acquired hypothyroidism E03.9 [place] [address] [address] Nov, [place] [address] [address] Oct, [place] [address] [address] Oct, [place] [address] [address] Oct, [place] [address] [address] Sep, Functional 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 ; HTN (hyperte nsion) I10 ; Diabetes mellitus E11.9 ; Depression F32.9 ; Overactive bladder N32.81 ; Mixed hyperlipidemia E78.2 ; Gastroesophageal reflux disease without esophagitis K21.9 ; Chronic pain G89.29 ; Insomnia G47.00 and Acquired hypothyroidism E03.9 [place] [address] [address] Sep, [address] [address] Aug, Encounter for immunization Z23 [address] [address] Aug, [address] [address] Jul, [address] [address] Jun, Type 2 diabetes mellitus without complic ations E11.9 ; HTN (hypertension) I10 ; Hypothyroid E03.9 ; Neuropathy G62.9 ; Depression F32.9 ; Chronic pain G89.29 ; GERD (gastroesophageal reflux disease) K21.9 ; Insomnia G47.00 ; Overactive bladder N32.81 ; Mixed hyperlipidemia E78.2 ; Diarrhea of infectious origin A09 and Environmental allergies Z91.09 [place] [address] [address] Apr, [place] [address] [address] March, Hypothyroidism, unspecified E03.9 and Mi xed hyperlipidemia E78.2 [place] [address] [address] March, Diabetes mellitus E11.9 ; HTN (hypertens ion) I10 ; Hypothyroid E03.9 ; Depression F32.9 ; Overactive bladder N32.81 ; Other chronic pain G89.29 ; Lumbago with sciatica, unspecified side M54.40 ; Environmental allergies Z91.09 and Gastroesophageal reflux disease, esophagitis presence not specified K21.9 [place] [address] [address] March, [place] [address] [address] Jan, HTN (hypertension) I10 ; Hypothyroid E03 .9 ; Neuropathy G62.9 ; Diabetes mellitus E11.9 ; Chronic pain G89.29 ; GERD (gastroesophageal reflux disease) K21.9 ; Overactive bladder N32.81 and Depression F32.9 [place] [address] [address] Dec, Ear pain, left H92.02 ; HTN (hypertensio n) I10 ; Hypothyroid E03.9 ; Neuropathy G62.9 ; Diabetes mellitus E11.9 ; Depression F32.9 ; GERD (gastroesophageal reflux disease) K21.9 ; Insomnia G47.00 and Overactive bladder N32.81 [place] [address] [address] 14 Nov, 2015 Overactive bladder N32.81 and Chronic pa in G89.29 [place] [address] [address] 11 Nov, 2015 Kidney failure N19 [place] [address] [address] Nov, [place] [address] [address] 08 Nov, 2015 [place] [address] [address] Nov, Diabetes mellitus E11.9 ; Depression F32 .9 ; Chronic pain G89.29 ; GERD (gastroesophageal reflux disease) K21.9 ; Insomnia G47.00 ; HTN (hypertension) I10 ; Hypothyroid E03.9 ; COPD (chronic obstructive pulmonary disease) J44.9 ; Bladder incontinence R32 and Incontinence R32 [place] [address] [address] Sep, Type 2 diabetes mellitus with foot ulcer E11.621 and Chromosomal abnormality, 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 [place] [address] [address] Sep, [place] [address] [address] Aug, [place] [address] [address] Aug, [address] [address] Aug, HTN (hypertension) I10 ; Encounter for i mmunization Z23 ; Hypothyroid E03.9 ; Neuropathy G62.9 ; Diabetes mellitus E11.9 ; Depression F32.9 ; Chronic pain G89.29 ; GERD (gastroesophageal reflux disease) K21.9 ; Insomnia G47.00 and COPD (chronic obstructive pulmonary disease) J44.9 [place] [id number] [place] [address] Jun, [facility] [address] [address] Jun, [facility] [address] [address] May, Essential hypertension, benign 401.1 ; U nspecified hypothyroidism 244.9 ; Insomnia, unspecified 780.52 ; Shortness of breath 786.05 ; Depression 311 ; COPD (chronic obstructive pulmonary disease) 496 ; GERD (gastroesophageal reflux disease) 530.81 and Diabetes 1.5, 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 [facility] [address] [address] May, [facility] [address] [address] May, [facility] [address] [address] May, Shortness of breath 786.05 ; Essential h ypertension, benign 401.1 ; Diabetes mellitus 250.00 ; Hyperlipidemia 272.4 ; Hypothyroid 244.9 ; Insomnia 780.52 and Cough 786.2 [facility] [address] [address] Apr, [facility] [address] [address] March, Shortness of breath 786.05 ; Nausea with vomiting 787.01 ; Essential hypertension, benign 401.1 ; Diabetes mellitus 250.00 ; Hyperlipidemia 272.4 and Hypothyroid 244.9 [facility] [address] [address] Feb, [facility] [address] [address] Feb, [facility] [address] [address] Jan, [facility] [address] [address] Jan, [facility] [address] [id number] [place] [address] Jan, [facility] [address] [id number] [place] [address] Jan, [facility] [address] [id number] [place] [address] Jan, 2014 [facility] [address] [id number] [place] [address] Jan, 2014 [facility] [address] [id number] [place] [address] Jan, [facility] [address] [id number] [place] [address] Jan, [facility] [address] [id number] [place] [address] Jan, [facility] [address] [id number] [place] [address] Jan, [facility] [address] [id number] [place] [address] Dec, 2014 [facility] [address] [id number] [place] [address] Dec, 2014 [facility] [address] [id number] [place] [address] Dec, 2014 [facility] [address] [id number] [place] [address] Dec, 2014 [facility] [address] [id number] [place] [address] Dec, 2014 [facility] [address] [id number] [place] [address] Dec, 2014 [facility] [address] [id number] [place] [address] Dec, 2014 [facility] [address] [id number] [place] [address] Dec, 2014 [facility] [address] [id number] [place] [address] 04 Dec, 2014 [facility] [address] [id number] [place] [address] Dec, [facility] [address] [id number] [place] [address] Oct, [facility] [address] [id number] [place] [address] Oct, [facility] [address] [id number] [place] [address] Oct, [facility] [address] [id number] [place] [address] Oct, [facility] [address] [id number] [place] [address] Oct, [facility] [address] [id number] [place] [address] Oct, [facility] [address] [id number] [place] [address] Oct, [facility] [address] [id number] [place] [address] Oct, [facility] [address] [id number] [place] [address] Oct, [facility] [address] [id number] [place] [address] Oct, [facility] [address] [id number] [place] [address] Oct, [facility] [address] [id number] [place] [address] Oct, [facility] [id number] [place] [address] Oct, [facility] [id number] [place] [address] Oct, [facility] [id number] [place] [address] Sep, [facility] [id number] [place] [address] Sep, [facility] [id number] [place] [address] Sep, [facility] [id number] [place] [address] Sep, [facility] [id number] [place] [address] Sep, [facility] [id number] [place] [address] Sep, [facility] [id number] [place] [address] Sep, [facility] [id number] [place] [address] Sep, [facility] [address] [facility] [id number] [place] [address] Sep, [facility] [address] [id number] [place] [address] Aug, [facility] [id number] [place] [address] Aug, [facility] [id number] [place] [address] Aug, [facility] [id number] [place] [address] Aug, [facility] [id number] [place] [address] Aug, [facility] [id number] [place] [address] Aug, [facility] [id number] [place] [address] Aug, [facility] [address] [id number] [place] [address] Aug, [facility] [id number] [place] [address] Aug, [facility] [address] [facility] [id number] [facility] [address] Jul, [facility] [place] [facility] [address] [facility] [id number] [facility] [place] [address] Jul, [facility] [place] [facility] [address] [id number] [facility] [address] Jul, [facility] [place] [facility] [address] [facility] [id number] [place] [address] Jul, [facility] [place] [facility] [address] [facility] [id number] [facility] [address] Jul, [facility] [place] [facility] [address] [facility] [id number] [facility] [place] [address] Jul, [facility] [place] [facility] [address] [id number] [facility] [address] Jul, [facility] [place] [facility] [address] [id number] [facility] [address] Jul, [facility] [place] [facility] [address] [facility] [id number] [facility] [address] Jul, [facility] [place] [facility] [address] [id number] [facility] [address] Jul, [facility] [place] [facility] [address] [id number] [place] [address] Jun, [facility] [place] [facility] [address] [id number] [facility] [address] Jun, [facility] [place] [facility] [address] [facility] [id number] [facility] [address] Jun, [facility] [place] [facility] [address] [id number] [place] [address] Jun, [facility] [place] [facility] [address] [facility] [id number] [facility] [address] Jun, [facility] [place] [facility] [address] [id number] [place] [address] Jun, [facility] [place] [facility] [address] [id number] [facility] [address] Jun, [facility] [place] [facility] [address] [id number] [facility] [address] Jun, [facility] [place] [facility] [address] [facility] [id number] [place] [address] Jun, [facility] [place] [facility] [address] [facility] [id number] [place] [address] Jun, [facility] [place] [facility] [address] [facility] [id number] [place] [address] Jun, [facility] [place] [facility] [address] [facility] [id number] [place] [address] Jun, [facility] [place] [facility] [address] [facility] [id number] [place] [address] May, [facility] [place] [facility] [address] [id number] [place] [address] May, [facility] [place] [facility] [address] [id number] [place] [address] May, [facility] [place] [facility] [address] [facility] [id number] [place] [address] May, [facility] [place] [facility] [address] [id number] [place] [address] May, [facility] [place] [facility] [address] [id number] [place] [address] May, [facility] [place] [facility] [address] [facility] [id number] [place] [address] March, [facility] [place] [facility] [address] [facility] [id number] [place] [address] March, [facility] [place] [facility] [address] [id number] [place] [address] March, [facility] [place] [facility] [address] [facility] [id number] [place] [address] March, [facility] [place] [facility] [address] [id number] [place] [address] March, [facility] [place] [facility] [address] [id number] [place] [address] March, [facility] [place] [facility] [address] [id number] [place] [address] Feb, [facility] [place] [facility] [address] [id number] [place] [address] Feb, [facility] [place] [facility] [address] [id number] [place] [address] Feb, [facility] [place] [facility] [address] [facility] [id number] [place] [address] Feb, [facility] [place] [facility] [address] [id number] [place] [address] Jan, [facility] [place] [facility] [address] [id number] [place] [address] Jan, [facility] [place] [facility] [address] [id number] [place] [address] Jan, [facility] [place] [facility] [address] [id number] [place] [address] Jan, [facility] [place] [facility] [address] [id number] [place] [address] Jan, [facility] [place] [facility] [address] [id number] [place] [address] Jan, [facility] [place] [facility] [address] [id number] [place] [address] Jan, [facility] [place] [facility] [address] [id number] [place] [address] Jan, [facility] [place] [facility] [address] [id number] [place] [address] Jan, [facility] [place] [facility] [address] [id number] [place] [address] Jan, [facility] [place] [facility] [address] [id number] [place] [address] Jan, [facility] [place] [facility] [address] [id number] [place] [address] Jan, [facility] [place] [facility] [address] [facility] [id number] [place] [address] Dec, [facility] [place] [facility] [address] [id number] [place] [address] Dec, [facility] [place] [facility] [address] [id number] [place] [address] Dec, [facility] [place] [facility] [address] [id number] [place] [address] Dec, [facility] [place] [facility] [address] [id number] [place] [address] Dec, [facility] [place] [facility] [address] [id number] [place] [address] Dec, [facility] [place] [facility] [address] [id number] [place] [address] Nov, [facility] [place] [facility] [address] [id number] [place] [address] Nov, [facility] [place] [facility] [address] [id number] [place] [address] Oct, [facility] [place] [facility] [address] [id number] [place] [address] Oct, [facility] [place] [facility] [address] [id number] [place] [address] Oct, [facility] [place] [facility] [address] [id number] [place] [address] Oct, [facility] [place] [facility] [address] [id number] [place] [address] Oct, [facility] [place] [facility] [address] [id number] [place] [address] Oct, [facility] [place] [facility] [address] [id number] [place] [address] Sep, [facility] [place] [facility] [address] [id number] [place] [address] Sep, [facility] [place] [facility] [address] [id number] [place] [address] Sep, [facility] [place] [facility] [address] [id number] [place] [address] Sep, [facility] [place] [facility] [address] [id number] [place] [address] Aug, [facility] [place] [facility] [address] [id number] [place] [address] Aug, [facility] [place] [facility] [address] [id number] [place] [address] Aug, [facility] [place] [facility] [address] [id number] [place] [address] Jul, [facility] [place] [facility] [address] [id number] [place] [address] Jul, [facility] [place] [facility] [address] [id number] [place] [address] Jul, [facility] [place] [facility] [address] [id number] [place] [address] Jun, [facility] [place] [facility] [address] [id number] [place] [address] Jun, [facility] [place] [facility] [address] [id number] [place] [address] Jun, [facility] [place] [facility] [address] [id number] [place] [address] Apr, [facility] [place] [facility] [address] [id number] [place] [address] Apr, [facility] [place] [facility] [address] [id number] [place] [address] March, [facility] [place] [facility] [address] [id number] [place] [address] March, [facility] [place] [facility] [address] [id number] [place] [address] March, [facility] [place] [facility] [address] [id number] [place] [address] March, [facility] [place] [facility] [address] [id number] [place] [address] Feb, [facility] [place] [facility] [address] [id number] [place] [address] Jan, [facility] [place] [facility] [address] [id number] [place] [address] 13 Dec, 2012 [facility] [place] [facility] [address] [id number] [place] [address] 08 Dec, 2012 [facility] [place] [facility] [address] [id number] [place] [address] Dec, [facility] [place] [facility] [address] [id number] [place] [address] Nov, [facility] [place] [facility] [address] [id number] [place] [address] Oct, [facility] [place] [facility] [address] [id number] [place] [address] Oct, [facility] [place] [facility] [address] [id number] [place] [address] Sep, [facility] [place] [facility] [id number] [place] [address] Sep, [facility] [place] [facility] [address] [id number] [place] [address] Sep, [facility] [place] [facility] [address] [id number] [place] [address] Sep, [facility] [place] [facility] [address] [id number] [place] [address] Sep, [facility] [place] [facility] [address] [id number] [place] [address] Sep, [facility] [place] [facility] [address] [id number] [place] [address] Sep, [facility] [place] [facility] [address] [id number] [place] [address] Aug, [facility] [place] [facility] [address] [id number] [place] [address] 16 Aug, 2012 [facility] [place] [facility] [address] [facility] [id number] [place] [address] 10 Aug, 2012 [facility] [place] [facility] [address] [id number] [place] [address] 10 Aug, 2012 [facility] [place] [facility] [address] [id number] [place] [address] 08 Aug, 2012 [facility] [place] [facility] [address] [id number] [place] [address] 08 Aug, 2012 [facility] [place] [facility] [address] [id number] [place] [address] Aug, [facility] [place] [facility] [address] [id number] [place] [address] Aug, [facility] [place] [facility] [address] [id number] [place] [address] Jul, [facility] [place] [facility] [address] [id number] [place] [address] Jul, [facility] [place] [facility] [address] [id number] [place] [address] Jun, [facility] [place] [facility] [address] [id number] [place] [address] May, [facility] [place] [facility] [address] [id number] [place] [address] Apr, [facility] [place] [facility] [address] [id number] [place] [address] Apr, [facility] [place] [facility] [address] [id number] [place] [address] Apr, [facility] [place] [facility] [address] [id number] [place] [address] March, [facility] [place] [facility] [address] [id number] [place] [address] March, [facility] [place] [facility] [address] [id number] [place] [address] March, [facility] [address] [id number] [place] [address] March, [facility] [address] [id number] [place] [address] March, [facility] [place] [facility] [address] [id number] [place] [address] March, [facility] [address] [id number] [place] [address] March, [facility] [place] [facility] [address] [id number] [place] [address] Jan, [facility] [address] [id number] [place] [address] Jan, [facility] [place] [facility] [address] [id number] [place] [address] Jan, [facility] [address] [id number] [place] [address] Jan, [facility] [place] [facility] [address] [id number] [place] [address] Jan, [facility] [place] [facility] [address] [id number] [place] [address] Dec, [facility] [place] [facility] [address] [id number] [place] [address] Dec, [facility] [place] [facility] [address] [id number] [place] [address] Nov, [facility] [place] [facility] [address] [id number] [place] [address] Nov, [facility] [place] [facility] [address] [id number] [place] [address] Nov, [facility] [place] [facility] [address] [id number] [place] [address] Nov, [facility] [place] [facility] [address] [id number] [place] [address] Oct, [facility] [place] [facility] [address] [id number] [place] [address] 06 Oct, 2011 [facility] [place] [facility] [address] [id number] [place] [address] 14 Sep, 2011 [facility] [place] [facility] [address] [id number] [place] [address] 10 Sep, 2011 [facility] [place] [facility] [address] [id number] [place] [address] 10 Sep, 2011 [facility] [place] [facility] [address] [id number] [place] [address] 11 May, 2011 [facility] [place] [facility] [address] [id number] [place] [address] 20 Nov, 2010 [facility] [place] [facility] [address] [id number] [place] [address] 29 Oct, 2010 [facility] [place] [facility] [address] [id number] [place] [address] 14 Oct, 2010 [facility] [place] [facility] [address] [id number] [place] [address] 08 Oct, 2010 [facility] [place] [facility] [address] [id number] [place] [address] 15 Sep, 2010 [facility] [place] [facility] [address] [id number] [place] [address] Sep, [facility] [place] [facility] [address] [id number] [place] [address] Aug, [facility] [place] [facility] [address] [id number] [place] [address] March, [facility] [place] [facility] [address] [id number] [place] [address] Oct, [facility] [place] [facility] [address] [id number] [place] [address] 17 Oct, 2009 [facility] [place] [facility] [address] [id number] [place] [address] Oct, [facility] [place] [facility] [address] [id number] [place] [address] Oct, [facility] [place] [facility] [address] [id number] [place] [address] Sep, [facility] [address] [id number] [place] [address] Sep, [facility] [address] [id number] [place] [address] Sep, [facility] [address] [id number] [place] [address] Aug, [facility] [id number] [place] [address] Aug, [facility] [id number] [place] [address] Aug, [facility] [address] [id number] [place] [address] Jan, IMMUNIZATIONS No Known Immunizations SOCIAL HISTORY [...]
--- OUTSIDE RECORDS SUMMARY | 2020-06-13 16:03 | XMS REPORT ---
Author Author Jah Durant Doctor Organization [facility] Address Unknown Phone Unavailable Care Team Providers Care Research Physiologist Name Role Phone Migration, Doctor Unavailable Unavailable PROBLEMS Type Condition ICD9-CM Code WZJ19-ON Code Onset Dates Condition S tatus SNOMED Code Problem Neuropathy G62.9 Active 666384708 Problem Chronic pain G89.29 Active 5327851 1 Problem Overactive bladder N32.81 Active 2 02874517 Problem Hypothyroid E03.9 Active 50188995 Problem Irritable bowel syndrome with diarrhea K58.0 Active 473311430 Problem long-term 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 Z79.4 Active 548099955 Problem Type 2 diabetes mellitus with hyperglycemia E11.65 Active 85417558 Problem Chronic obstructive pulmonary disease, unspecified COPD ty pe J44.9 Active 89666568 Problem Gastroesophageal reflux disease with esophagitis K 21.0 Active 003619617 Problem Major depressive disorder, recurrent, in full remission F33.42 Active 40972898 Problem Mixed hyperlipidemia E78.2 Active 574113438 Problem Essential (primary) hypertension I10 Active 29089352 Problem Anxiety disorder, unspecified type F41.9 Active 177572029 Problem Gastroparesis K31.84 Active 159472 006 Problem 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 Active 544830567 ALLERGIES No Information ENCOUNTERS Encounter Location Date Diagnosis [facility] [id number] [place] [address] Jan, [facility] [address] [address] 10 Dec, 2019 Chronic pain G89.29 [facility] [address] [address] 07 Dec, 2019 [facility] [address] [address] Dec, [facility] [address] [address] Nov, Chronic pain G89.29 [facility] [address] [address] Oct, Chronic pain G89.29 [facility] [address] [address] Sep, Chronic pain G89.29 [facility] [address] [address] Sep, Type 2 diabetes mellitus with diabetic a utonomic (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 ; Irritable bowel syndrome with diarrhea K58.0 ; Essential (primary) hypertension I10 and Encounter for immunization Z23 [facility] [address] [address] Aug, Chronic pain G89.29 [facility] [address] [address] Aug, [facility] [address] [address] Jul, Chronic pain G89.29 [facility] [address] [address] Jun, Other chronic pain G89.29 [facility] [address] [address] Jun, [facility] [address] [address] Jun, Chronic pain G89.29 [facility] [address] [address] Jun, Neuropathy G62.9 [facility] [address] [address] Jun, Encounter for Medicare annual wellness e xam Z00.00 ; Type 2 diabetes mellitus with hyperglycemia E11.65 ; Mixed hyperlipidemia E78.2 ; Hypothyroid E03.9 ; Gastroesophageal reflux disease with esophagitis K21.0 ; Essential (primary) hypertension I10 ; Major depressive disorder, recurrent, in full remission F33.42 ; Chronic obstructive pulmonary disease, unspecified COPD type J44.9 ; Neuropathy G62.9 and Encounter for immunization Z23 [facility] [address] [address] Jun, Irritable bowel syndrome with diarrhea K 58.0 [facility] [address] [address] May, Chronic pain G89.29 [facility] [address] [address] May, Type 2 diabetes mellitus with hyperglyce regina E11.65 and Neuropathy G62.9 [facility] [address] [address] May, Chronic pain G89.29 [facility] [address] [address] Apr, Poison maryam dermatitis L23.7 [facility] [address] [address] Apr, Chronic pain G89.29 [facility] [address] [address] March, Type 2 diabetes mellitus with hyperglyce regina E11.65 [facility] [address] [address] March, Chronic pain G89.29 [facility] [address] [address] March, [address] [place] [address] Feb, [facility] [address] [address] Feb, Other chronic pain G89.29 and Chronic pa in G89.29 [facility] [address] [address] Jan, Mixed hyperlipidemia E78.2 [facility] [address] [address] Jan, Chronic pain G89.29 [facility] [address] [address] 08 Jan, 2019 Type 2 diabetes mellitus with hyperglyce regina E11.65 ; Mixed hyperlipidemia E78.2 ; long-term 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 Z79.4 ; Acquired hypothyroidism E03.9 and Essential (primary) hypertension I10 [facility] [address] [address] 11 Dec, 2018 Chronic pain G89.29 [facility] [address] [address] 14 Nov, 2018 Chronic pain G89.29 [facility] [address] [address] Nov, [facility] [address] [address] Oct, Chronic pain G89.29 [facility] [address] [address] Oct, [facility] [address] [address] Sep, [facility] [address] [address] Sep, Type 2 diabetes mellitus with hyperglyce regina E11.65 [facility] [address] [address] Sep, Chronic pain G89.29 [facility] [address] [address] Sep, [facility] [address] [address] Sep, Type 2 diabetes mellitus with hyperglyce regina E11.65 ; Irritable bowel syndrome with diarrhea K58.0 ; Gastroparesis K31.84 ; 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 and Dermatitis L30.9 [facility] [address] [address] Aug, Chronic pain G89.29 [facility] [address] [address] Jul, Chronic pain G89.29 [facility] [address] [address] Jun, Type 2 diabetes mellitus with hyperglyce regina E11.65 ; Neuropathy G62.9 ; Recurrent major depressive disorder, in partial remission F33.41 ; Chronic pain G89.29 and Hypertriglyceridemia E78.1 [facility] [address] [address] Jun, Hypothyroid E03.9 [facility] [address] [address] Jun, Major depressive disorder, recurrent epi sode, moderate F33.1 and Anxiety disorder, unspecified type F41.9 [facility] [address] [address] Jun, [facility] [address] [address] Jun, Type 2 diabetes mellitus with hyperglyce regina E11.65 ; long-term 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 Z79.4 ; Recurrent major depressive disorder, in partial remission F33.41 ; Hypothyroid E03.9 ; Candidal dermatitis B37.2 and Weakness generalized R53.1 [facility] [place] [address] [address] May, [facility] [address] [address] May, [facility] [address] [address] May, [facility] [address] [address] May, Generalized abdominal pain R10.84 and Ca ndidal dermatitis B37.2 [facility] [place] [address] [address] May, [facility] [address] [address] May, [facility] [address] [address] May, Nodular radiologic density R93.8 ; Weigh t loss, unintentional R63.4 and Pulmonary emphysema, unspecified emphysema type J43.9 [facility] [address] [address] May, Chronic pain G89.29 [facility] [address] [address] 09 May, 2018 Syncope and collapse R55 ; Chronic fatig ue R53.[address] lung screening R91.8 [facility] [address] [address] May, [facility] [address] [address] Apr, Chronic fatigue R53.82 ; Abnormal chest CT R93.8 ; Elevated erythrocyte sedimentation rate R70.0 ; Hypothyroid E03.9 and Recurrent major depressive disorder, in partial remission F33.41 [facility] [address] [address] Apr, Hypothyroid E03.9 [facility] [address] [address] Apr, Depression F32.9 [facility] [facility] [address] [address] Apr, [facility] [address] [address] March, [facility] [place] [address] [address] March, Hypothyroid E03.9 [facility] [address] [address] March, Diabetes mellitus E11.9 and Hypothyroid E03.9 [facility] [facility] [address] [address] March, Diabetes mellitus E11.9 [facility] [address] [address] March, Hypothyroid E03.9 and Elevated liver enz ymes R74.8 [facility] [address] [address] March, Type 2 diabetes mellitus with hyperglyce regina E11.65 ; long-term 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 Z79.4 ; Pulmonary emphysema, unspecified emphysema type J43.9 ; Hypothyroid E03.9 ; Neuropathy G62.9 ; Mixed hyperlipidemia E78.2 ; Chronic pain G89.29 ; Gastroesophageal reflux disease with esophagitis K21.0 ; Irritable bowel syndrome with diarrhea K58.0 ; Overactive bladder N32.81 and Recurrent major depressive disorder, in partial remission F33.41 [facility] [facility] [address] [address] Feb, Chronic pain G89.[address] [address] Feb, Type 2 diabetes mellitus with hyperglyce regina E11.65 and Skin lesion of scalp L98.[address] [address] Feb, [facility] [address] [address] Jan, Type 2 diabetes mellitus with hyperglyce regina E11.65 ; long-term 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 Z79.4 ; Essential (primary) hypertension I10 ; Pulmonary emphysema, unspecified emphysema type J43.9 ; Chronic pain G89.29 ; Controlled substance agreement signed Z79.899 ; Hypothyroid E03.9 ; Neuropathy G62.9 ; Gastroesophageal reflux disease with esophagitis K21.0 ; Overactive bladder N32.81 ; Depression F32.9 and Irritable bowel syndrome with diarrhea K58.0 [facility] [address] [address] Jan, [facility] [address] [address] Jan, Controlled substance agreement signed Z7 9.899 [facility] [address] [address] 08 Dec, 2017 Type 2 diabetes mellitus [...] treatment Z91.19 and Overweight (BMI 25.0-29.9) E66.3 [facility] [address] [address] 02 Dec, 2017 Controlled substance agreement signed Z7 9.899 [facility] [address] [address] Nov, Type 2 diabetes mellitus with hyperglyce regina E11.65 and Current non- adherence to medical treatment Z91.19 [facility] [facility] [address] [address] Nov, [facility] [address] [address] Nov, Chronic pain G89.29 [facility] [address] [address] Nov, [facility] [address] [address] Nov, Hypothyroid E03.9 [facility] [address] [address] Nov, Hypothyroid E03.9 [facility] [address] [address] Nov, Pulmonary emphysema, unspecified emphyse ma type J43.9 and Irritable bowel syndrome with diarrhea K58.0 [facility] [address] [address] Oct, [facility] [facility] [address] [address] Oct, [facility] [address] [address] Oct, [facility] [address] [address] Oct, [facility] [place] [address] [address] Oct, Chronic pain G89.29 [facility] [address] [address] Oct, Diabetes mellitus E11.9 ; Depression F32 .9 ; Mixed hyperlipidemia E78.2 ; Hypotension, unspecified hypotension type I95.9 ; Pulmonary emphysema, unspecified emphysema type J43.9 and Weight loss, unintentional R63.4 [facility] [address] [address] Oct, Chronic pain G89.29 [facility] [place] [address] [address] Sep, Chronic pain G89.29 [facility] [facility] [address] [address] Sep, Hypothyroid E03.9 and Diabetes mellitus E11.9 [facility] [address] [address] Aug, Type 2 diabetes mellitus with hyperglyce regina E11.65 ; long-term 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 Z79.4 ; Essential (primary) hypertension I10 ; Hypothyroid E03.9 ; Neuropathy G62.9 ; Chronic pain G89.29 ; Mixed hyperlipidemia E78.2 and Encounter for immunization Z23 [facility] [address] [address] Aug, Chronic pain G89.29 [place] [address] [address] Aug, Overactive bladder N32.81 ; Diabetes alvarez litus E11.9 and Chronic pain G89.29 [facility] [address] [address] Jul, [facility] [address] [address] Jun, [facility] [address] [address] Jun, [facility] [address] [address] Jun, Hypothyroid E03.9 [facility] [address] [address] Jun, Diabetes mellitus E11.9 ; Hypothyroid E0 3.9 ; Neuropathy G62.9 ; Chronic pain G89.29 and Neck mass R22.1 [facility] [address] [address] Apr, [facility] [address] [address] Apr, Acute cystitis without hematuria N30.00 [facility] [address] [address] March, [facility] [address] [address] March, [facility] [address] [address] March, Near syncope R55 [facility] [address] [address] Feb, [facility] [address] [address] Feb, Chronic pain G89.29 [facility] [address] [address] Feb, [facility] [address] [address] Feb, [place] [address] [address] 24 Jan, 2017 Chronic pain G89.29 [facility] [address] [address] Jan, [facility] [address] [address] 16 Jan, 2017 [place] [address] [address] 14 Jan, 2017 Diabetes mellitus E11.9 ; Hypothyroid E0 3.9 ; GERD (gastroesophageal reflux disease) K21.9 ; Insomnia G47.00 ; Functional 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 ; Neuropathy G62.9 ; Depression F32.9 ; Chronic pain G89.29 ; Irritable bowel syndrome with diarrhea K58.0 ; Overactive bladder N32.81 ; Mixed hyperlipidemia E78.2 and Bronchitis J40 [facility] [address] [address] Dec, [facility] [address] [address] Dec, [facility] [address] [address] Dec, [facility] [address] [address] Dec, [facility] [address] [address] Dec, Chronic pain G89.29 [facility] [address] [address] Dec, [facility] [address] [address] Dec, [facility] [address] [address] Dec, Type 2 diabetes mellitus with foot ulcer E11.621 [facility] [address] [address] 17 Feb, 2017 Type 2 diabetes mellitus with foot ulcer E11.621 [facility] [address] [address] 14 Dec, 2016 HTN (hypertension) I10 ; Depression F32. 9 ; Type 2 diabetes mellitus with foot ulcer E11.621 ; Functional 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 ; Irritable bowel syndrome with diarrhea K58.0 ; Chronic pain G89.29 ; Insomnia G47.00 ; Overactive bladder N32.81 ; Mixed hyperlipidemia E78.2 ; Gastroesophageal reflux disease with esophagitis K21.0 and Acquired hypothyroidism E03.9 [facility] [address] [address] Nov, [facility] [facility] [address] [address] Oct, [facility] [place] [address] [address] Oct, [facility] [address] [address] Oct, [facility] [place] [address] [address] Sep, Functional 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 ; HTN (hyperte nsion) I10 ; Diabetes mellitus E11.9 ; Depression F32.9 ; Overactive bladder N32.81 ; Mixed hyperlipidemia E78.2 ; Gastroesophageal reflux disease without esophagitis K21.9 ; Chronic pain G89.29 ; Insomnia G47.00 and Acquired hypothyroidism E03.9 [facility] [address] [address] Sep, [address] [address] Aug, Encounter for immunization Z23 [address] [address] Aug, [address] [address] Jul, [address] [address] Jun, Type 2 diabetes mellitus without complic ations E11.9 ; HTN (hypertension) I10 ; Hypothyroid E03.9 ; Neuropathy G62.9 ; Depression F32.9 ; Chronic pain G89.29 ; GERD (gastroesophageal reflux disease) K21.9 ; Insomnia G47.00 ; Overactive bladder N32.81 ; Mixed hyperlipidemia E78.2 ; Diarrhea of infectious origin A09 and Environmental allergies Z91.09 [facility] [address] [address] Apr, [facility] [address] [address] March, Hypothyroidism, unspecified E03.9 and Mi xed hyperlipidemia E78.2 [facility] [address] [address] March, Diabetes mellitus E11.9 ; HTN (hypertens ion) I10 ; Hypothyroid E03.9 ; Depression F32.9 ; Overactive bladder N32.81 ; Other chronic pain G89.29 ; Lumbago with sciatica, unspecified side M54.40 ; Environmental allergies Z91.09 and Gastroesophageal reflux disease, esophagitis presence not specified K21.9 [facility] [address] [address] March, [facility] [address] [address] Jan, HTN (hypertension) I10 ; Hypothyroid E03 .9 ; Neuropathy G62.9 ; Diabetes mellitus E11.9 ; Chronic pain G89.29 ; GERD (gastroesophageal reflux disease) K21.9 ; Overactive bladder N32.81 and Depression F32.9 [facility] [address] [address] Dec, Ear pain, left H92.02 ; HTN (hypertensio n) I10 ; Hypothyroid E03.9 ; Neuropathy G62.9 ; Diabetes mellitus E11.9 ; Depression F32.9 ; GERD (gastroesophageal reflux disease) K21.9 ; Insomnia G47.00 and Overactive bladder N32.81 [facility] [address] [address] 14 Nov, 2015 Overactive bladder N32.81 and Chronic pa in G89.29 [facility] [address] [address] 11 Nov, 2015 Kidney failure N19 [facility] [address] [address] Nov, [facility] [place] [address] [address] 08 Nov, 2015 [place] [address] [address] Nov, Diabetes mellitus E11.9 ; Depression F32 .9 ; Chronic pain G89.29 ; GERD (gastroesophageal reflux disease) K21.9 ; Insomnia G47.00 ; HTN (hypertension) I10 ; Hypothyroid E03.9 ; COPD (chronic obstructive pulmonary disease) J44.9 ; Bladder incontinence R32 and Incontinence R32 [facility] [address] [address] Sep, Type 2 diabetes mellitus with foot ulcer E11.621 and Chromosomal abnormality, 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 [facility] [address] [address] Sep, [facility] [address] [address] Aug, [facility] [address] [address] Aug, [address] [address] Aug, HTN (hypertension) I10 ; Encounter for i mmunization Z23 ; Hypothyroid E03.9 ; Neuropathy G62.9 ; Diabetes mellitus E11.9 ; Depression F32.9 ; Chronic pain G89.29 ; GERD (gastroesophageal reflux disease) K21.9 ; Insomnia G47.00 and COPD (chronic obstructive pulmonary disease) J44.9 [facility] [address] [place] [address] Jun, [facility] [address] [address] Jun, [facility] [address] [address] May, Essential hypertension, benign 401.1 ; U nspecified hypothyroidism 244.9 ; Insomnia, unspecified 780.52 ; Shortness of breath 786.05 ; Depression 311 ; COPD (chronic obstructive pulmonary disease) 496 ; GERD (gastroesophageal reflux disease) 530.81 and Diabetes 1.5, 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 [facility] [address] [address] May, [facility] [address] [address] May, [facility] [address] [address] May, Shortness of breath 786.05 ; Essential h ypertension, benign 401.1 ; Diabetes mellitus 250.00 ; Hyperlipidemia 272.4 ; Hypothyroid 244.9 ; Insomnia 780.52 and Cough 786.2 [facility] [address] [address] Apr, [facility] [address] [address] March, Shortness of breath 786.05 ; Nausea with vomiting 787.01 ; Essential hypertension, benign 401.1 ; Diabetes mellitus 250.00 ; Hyperlipidemia 272.4 and Hypothyroid 244.9 [facility] [address] [address] Feb, [facility] [address] [address] Feb, [facility] [address] [address] Jan, [facility] [address] [address] Jan, [facility] [id number] [place] [address] Jan, [facility] [id number] [place] [address] Jan, [facility] [id number] [place] [address] Jan, 2014 [facility] [id number] [place] [address] Jan, 2014 [facility] [id number] [place] [address] Jan, [facility] [id number] [place] [address] Jan, [facility] [id number] [place] [address] Jan, [facility] [id number] [place] [address] Jan, [facility] [id number] [place] [address] Dec, 2014 [facility] [id number] [place] [address] Dec, 2014 [facility] [id number] [place] [address] Dec, 2014 [facility] [id number] [place] [address] Dec, 2014 [facility] [id number] [place] [address] Dec, 2014 [facility] [id number] [place] [address] Dec, 2014 [facility] [id number] [place] [address] Dec, 2014 [facility] [id number] [place] [address] Dec, 2014 [facility] [id number] [place] [address] 04 Dec, 2014 [facility] [id number] [place] [address] Dec, [facility] [id number] [place] [address] Oct, [facility] [id number] [place] [address] Oct, [facility] [id number] [place] [address] Oct, [facility] [id number] [place] [address] Oct, [facility] [id number] [place] [address] Oct, [facility] [id number] [place] [address] Oct, [facility] [id number] [place] [address] Oct, [facility] [id number] [place] [address] Oct, [facility] [id number] [place] [address] Oct, [facility] [id number] [place] [address] Oct, [facility] [id number] [place] [address] Oct, [facility] [id number] [place] [address] Oct, [facility] [id number] [place] [address] Oct, [facility] [id number] [place] [address] Oct, [facility] [id number] [place] [address] Sep, [facility] [id number] [place] [address] Sep, [facility] [id number] [place] [address] Sep, [facility] [id number] [place] [address] Sep, [facility] [place] [facility] [id number] [place] [address] Sep, [facility] [place] [facility] [id number] [place] [address] Sep, [facility] [place] [facility] [id number] [place] [address] Sep, [facility] [place] [facility] [id number] [place] [address] Sep, [facility] [place] [facility] [id number] [place] [address] Sep, [facility] [place] [facility] [id number] [place] [address] Aug, [facility] [facility] [id number] [place] [address] Aug, [facility] [facility] [id number] [place] [address] Aug, [facility] [id number] [place] [address] Aug, [facility] [facility] [id number] [place] [address] Aug, [facility] [facility] [id number] [place] [address] Aug, [facility] [facility] [id number] [place] [address] Aug, [facility] [facility] [id number] [place] [address] Aug, [facility] [facility] [id number] [place] [address] Aug, [facility] [facility] [address] [facility] [id number] [facility] [place] [address] Jul, [facility] [facility] [address] [facility] [id number] [facility] [place] [address] Jul, [facility] [place] [facility] [id number] [facility] [place] [address] Jul, [facility] [facility] [address] [facility] [id number] [place] [address] Jul, [facility] [place] [facility] [address] [facility] [id number] [facility] [place] [address] Jul, [facility] [address] [facility] [id number] [facility] [place] [address] Jul, [facility] [id number] [facility] [place] [address] Jul, [facility] [id number] [facility] [place] [address] Jul, [facility] [address] [facility] [id number] [facility] [place] [address] Jul, [facility] [id number] [facility] [place] [address] Jul, [facility] [id number] [place] [address] Jun, [facility] [id number] [facility] [place] [address] Jun, [facility] [address] [facility] [id number] [facility] [place] [address] Jun, [facility] [id number] [place] [address] Jun, [facility] [address] [facility] [id number] [facility] [place] [address] Jun, [facility] [id number] [place] [address] Jun, [facility] [address] [id number] [facility] [place] [address] Jun, [facility] [address] [id number] [facility] [place] [address] Jun, [facility] [address] [facility] [id number] [place] [address] Jun, [facility] [address] [facility] [id number] [place] [address] Jun, [facility] [address] [facility] [id number] [place] [address] Jun, [facility] [address] [facility] [id number] [place] [address] Jun, [facility] [address] [facility] [id number] [place] [address] May, [facility] [id number] [place] [address] May, [facility] [id number] [place] [address] May, [facility] [address] [facility] [id number] [place] [address] May, [facility] [id number] [place] [address] May, [facility] [id number] [place] [address] May, [facility] [address] [facility] [id number] [place] [address] March, [facility] [address] [facility] [id number] [place] [address] March, [facility] [id number] [place] [address] March, [facility] [address] [facility] [id number] [place] [address] March, [facility] [id number] [place] [address] March, [facility] [id number] [place] [address] March, [facility] [id number] [place] [address] Feb, [facility] [id number] [place] [address] Feb, [facility] [id number] [place] [address] Feb, [facility] [address] [facility] [id number] [place] [address] Feb, [facility] [id number] [place] [address] Jan, [facility] [id number] [place] [address] Jan, [facility] [id number] [place] [address] Jan, [facility] [id number] [place] [address] Jan, [facility] [id number] [place] [address] Jan, [facility] [id number] [place] [address] Jan, [facility] [id number] [place] [address] Jan, [facility] [id number] [place] [address] Jan, [facility] [id number] [place] [address] Jan, [facility] [id number] [place] [address] Jan, [facility] [id number] [place] [address] Jan, [facility] [id number] [place] [address] Jan, [facility] [address] [facility] [id number] [place] [address] Dec, [facility] [id number] [place] [address] Dec, [facility] [id number] [place] [address] Dec, [facility] [id number] [place] [address] Dec, [facility] [id number] [place] [address] Dec, [facility] [id number] [place] [address] Dec, [facility] [id number] [place] [address] Nov, [facility] [id number] [place] [address] Nov, [facility] [id number] [place] [address] Oct, [facility] [id number] [place] [address] Oct, [facility] [id number] [place] [address] Oct, [facility] [id number] [place] [address] Oct, [facility] [id number] [place] [address] Oct, [facility] [id number] [place] [address] Oct, [facility] [id number] [place] [address] Sep, [facility] [id number] [place] [address] Sep, [facility] [id number] [place] [address] Sep, [facility] [id number] [place] [address] Sep, [facility] [id number] [place] [address] Aug, [facility] [id number] [place] [address] Aug, [facility] [id number] [place] [address] Aug, [facility] [id number] [place] [address] Jul, [facility] [id number] [place] [address] Jul, [facility] [id number] [place] [address] Jul, [facility] [id number] [place] [address] Jun, [facility] [id number] [place] [address] Jun, [facility] [id number] [place] [address] Jun, [facility] [id number] [place] [address] Apr, [facility] [id number] [place] [address] Apr, [facility] [id number] [place] [address] March, [facility] [id number] [place] [address] March, [facility] [id number] [place] [address] March, [facility] [id number] [place] [address] March, [facility] [id number] [place] [address] Feb, [facility] [id number] [place] [address] Jan, [facility] [id number] [place] [address] 13 Dec, 2012 [facility] [id number] [place] [address] 08 Dec, 2012 [facility] [id number] [place] [address] Dec, [facility] [id number] [place] [address] Nov, [facility] [id number] [place] [address] Oct, [facility] [id number] [place] [address] Oct, [facility] [id number] [place] [address] Sep, [facility] [id number] [place] [address] Sep, [facility] [id number] [place] [address] Sep, [facility] [id number] [place] [address] Sep, [facility] [id number] [place] [address] Sep, [facility] [id number] [place] [address] Sep, [facility] [id number] [place] [address] Sep, [facility] [id number] [place] [address] Aug, [facility] [id number] [place] [address] 16 Aug, 2012 [facility] [address] [facility] [id number] [place] [address] 10 Aug, 2012 [facility] [id number] [place] [address] 10 Aug, 2012 [facility] [id number] [place] [address] 08 Aug, 2012 [facility] [id number] [place] [address] 08 Aug, 2012 [facility] [id number] [place] [address] Aug, [facility] [id number] [place] [address] Aug, [facility] [id number] [place] [address] Jul, [facility] [id number] [place] [address] Jul, [facility] [id number] [place] [address] Jun, [facility] [id number] [place] [address] May, [facility] [id number] [place] [address] Apr, [facility] [id number] [place] [address] Apr, [facility] [id number] [place] [address] Apr, [facility] [id number] [place] [address] March, [facility] [id number] [place] [address] March, [facility] [id number] [place] [address] March, [facility] [id number] [place] [address] March, [facility] [id number] [place] [address] March, [facility] [id number] [place] [address] March, [facility] [id number] [place] [address] March, [facility] [id number] [place] [address] Jan, [facility] [id number] [place] [address] Jan, [facility] [id number] [place] [address] Jan, [facility] [id number] [place] [address] Jan, [facility] [id number] [place] [address] Jan, [facility] [id number] [place] [address] Dec, [facility] [id number] [place] [address] Dec, [facility] [id number] [place] [address] Nov, [facility] [id number] [place] [address] Nov, [facility] [id number] [place] [address] Nov, [facility] [id number] [place] [address] Nov, [facility] [id number] [place] [address] Oct, [facility] [id number] [place] [address] 06 Oct, 2011 [facility] [id number] [place] [address] 14 Sep, 2011 [facility] [id number] [place] [address] 10 Sep, 2011 [facility] [id number] [place] [address] 10 Sep, 2011 [facility] [id number] [place] [address] 11 May, 2011 [facility] [id number] [place] [address] 20 Nov, 2010 [facility] [id number] [place] [address] 29 Oct, 2010 [facility] [id number] [place] [address] 14 Oct, 2010 [facility] [id number] [place] [address] 08 Oct, 2010 [facility] [id number] [place] [address] 15 Sep, 2010 [facility] [id number] [place] [address] Sep, [facility] [id number] [place] [address] Aug, [facility] [id number] [place] [address] March, [facility] [id number] [place] [address] Oct, [facility] [id number] [place] [address] 17 Oct, 2009 [facility] [id number] [place] [address] Oct, [facility] [id number] [place] [address] Oct, [facility] [id number] [place] [address] Sep, [facility] [id number] [place] [address] Sep, [facility] [id number] [place] [address] Sep, [facility] [id number] [place] [address] Aug, [facility] [id number] [place] [address] Aug, [facility] [id number] [place] [address] Aug, [facility] [id number] [place] [address] Jan, IMMUNIZATIONS No Known Immunizations SOCIAL HISTORY Never Assessed REASON FOR VISIT PLAN OF CARE VITAL SIGNS Height 69 in 2014-01-06 Weight 234.31 lbs 2014-01-06 Temperature 97 degrees Fahrenheit 2014-01-06 Heart Rate 70 bpm 2014-01-06 Respiratory Rate 20 2014-01-06 Blood pressure systolic 108 mmHg 2014-01-06 Blood pressure diastolic 68 mmHg 2014-01-06 MEDICATIONS Unknown Medications RESULTS No Results PROCEDURES Procedure Date Ordered Result Body Site ASSAY THYROID STIM HORMONE Jan 06, 2014 GLYCATED HEMOGLOBIN TEST Jan 06, 2014 MICROALBUMIN, SEMIQUANT Jan 06, 2014 LIPID PANEL Jan 06, 2014 COMPREHEN METABOLIC PANEL Jan 06, 2014 VENIPUNCT, ROUTINE* Jan 06, 2014 INSTRUCTIONS MEDICATIONS ADMINISTERED No Known Medications MEDICAL [...]
--- OUTSIDE RECORDS SUMMARY | 2020-06-13 16:04 | XMS REPORT ---
Author Author Jah Durant Doctor Organization [facility] Address Unknown Phone Unavailable Care Team Providers Care Armed Security Professional Name Role Phone Migration, Doctor Unavailable Unavailable PROBLEMS Type Condition ICD9-CM Code AGJ03-MR Code Onset Dates Condition S tatus SNOMED Code Problem Neuropathy G62.9 Active 779221733 Problem Chronic pain G89.29 Active 1265080 1 Problem Overactive bladder N32.81 Active 2 45297715 Problem Hypothyroid E03.9 Active 32365066 Problem Irritable bowel syndrome with diarrhea K58.0 Active 617313710 Problem shelter 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 Z79.4 Active 702823646 Problem Type 2 diabetes mellitus with hyperglycemia E11.65 Active 82589266 Problem Chronic obstructive pulmonary disease, unspecified COPD ty pe J44.9 Active 83980270 Problem Gastroesophageal reflux disease with esophagitis K 21.0 Active 029401528 Problem Major depressive disorder, recurrent, in full remission F33.42 Active 94138100 Problem Mixed hyperlipidemia E78.2 Active 515848250 Problem Essential (primary) hypertension I10 Active 40469237 Problem Anxiety disorder, unspecified type F41.9 Active 751061276 Problem Gastroparesis K31.84 Active 397438 006 Problem 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 Active 472236390 ALLERGIES No Information ENCOUNTERS Encounter Location Date Diagnosis [facility] [id number] [place] [address] Jan, [facility] [address] [address] 10 Dec, 2019 Chronic pain G89.29 [facility] [address] [address] 07 Dec, 2019 [facility] [address] [address] Dec, [facility] [address] [address] Nov, Chronic pain G89.29 [facility] [address] [address] Oct, Chronic pain G89.29 [facility] [address] [address] Sep, Chronic pain G89.29 [facility] [address] [address] Sep, Type 2 diabetes mellitus with diabetic a utonomic (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 ; Irritable bowel syndrome with diarrhea K58.0 ; Essential (primary) hypertension I10 and Encounter for immunization Z23 [facility] [address] [address] Aug, Chronic pain G89.29 [facility] [address] [address] Aug, [facility] [address] [address] Jul, Chronic pain G89.29 [facility] [address] [address] Jun, Other chronic pain G89.29 [facility] [address] [address] Jun, [facility] [address] [address] Jun, Chronic pain G89.29 [facility] [address] [address] Jun, Neuropathy G62.9 [facility] [address] [address] Jun, Encounter for Medicare annual wellness e xam Z00.00 ; Type 2 diabetes mellitus with hyperglycemia E11.65 ; Mixed hyperlipidemia E78.2 ; Hypothyroid E03.9 ; Gastroesophageal reflux disease with esophagitis K21.0 ; Essential (primary) hypertension I10 ; Major depressive disorder, recurrent, in full remission F33.42 ; Chronic obstructive pulmonary disease, unspecified COPD type J44.9 ; Neuropathy G62.9 and Encounter for immunization Z23 [facility] [address] [address] Jun, Irritable bowel syndrome with diarrhea K 58.0 [facility] [address] [address] May, Chronic pain G89.29 [facility] [address] [address] May, Type 2 diabetes mellitus with hyperglyce regina E11.65 and Neuropathy G62.9 [facility] [address] [address] May, Chronic pain G89.29 [facility] [address] [address] Apr, Poison maryam dermatitis L23.7 [facility] [address] [address] Apr, Chronic pain G89.29 [facility] [address] [address] March, Type 2 diabetes mellitus with hyperglyce regina E11.65 [facility] [address] [address] March, Chronic pain G89.29 [facility] [address] [address] March, [address] [place] [address] Feb, [facility] [address] [address] Feb, Other chronic pain G89.29 and Chronic pa in G89.29 [facility] [address] [address] Jan, Mixed hyperlipidemia E78.2 [facility] [address] [address] Jan, Chronic pain G89.29 [facility] [address] [address] 08 Jan, 2019 Type 2 diabetes mellitus with hyperglyce regina E11.65 ; Mixed hyperlipidemia E78.2 ; shelter 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 Z79.4 ; Acquired hypothyroidism E03.9 and Essential (primary) hypertension I10 [facility] [address] [address] 11 Dec, 2018 Chronic pain G89.29 [facility] [address] [address] 14 Nov, 2018 Chronic pain G89.29 [facility] [address] [address] Nov, [facility] [address] [address] Oct, Chronic pain G89.29 [facility] [address] [address] Oct, [facility] [address] [address] Sep, [facility] [address] [address] Sep, Type 2 diabetes mellitus with hyperglyce regina E11.65 [facility] [address] [address] Sep, Chronic pain G89.29 [facility] [address] [address] Sep, [facility] [address] [address] Sep, Type 2 diabetes mellitus with hyperglyce regina E11.65 ; Irritable bowel syndrome with diarrhea K58.0 ; Gastroparesis K31.84 ; 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 and Dermatitis L30.9 [facility] [address] [address] Aug, Chronic pain G89.29 [facility] [address] [address] Jul, Chronic pain G89.29 [facility] [address] [address] Jun, Type 2 diabetes mellitus with hyperglyce regina E11.65 ; Neuropathy G62.9 ; Recurrent major depressive disorder, in partial remission F33.41 ; Chronic pain G89.29 and Hypertriglyceridemia E78.1 [facility] [address] [address] Jun, Hypothyroid E03.9 [facility] [address] [address] Jun, Major depressive disorder, recurrent epi sode, moderate F33.1 and Anxiety disorder, unspecified type F41.9 [facility] [address] [address] Jun, [facility] [address] [address] Jun, Type 2 diabetes mellitus with hyperglyce regina E11.65 ; shelter 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 Z79.4 ; Recurrent major depressive disorder, in partial remission F33.41 ; Hypothyroid E03.9 ; Candidal dermatitis B37.2 and Weakness generalized R53.1 [facility] [address] [address] May, [facility] [address] [address] May, [facility] [address] [address] May, [facility] [address] [address] May, Generalized abdominal pain R10.84 and Ca ndidal dermatitis B37.2 [facility] [address] [address] May, [facility] [address] [address] May, [facility] [address] [address] May, Nodular radiologic density R93.8 ; Weigh t loss, unintentional R63.4 and Pulmonary emphysema, unspecified emphysema type J43.9 [facility] [address] [address] May, Chronic pain G89.29 [facility] [address] [address] 09 May, 2018 Syncope and collapse R55 ; Chronic fatig ue R53.[address] lung screening R91.8 [facility] [address] [address] May, [facility] [address] [address] Apr, Chronic fatigue R53.82 ; Abnormal chest CT R93.8 ; Elevated erythrocyte sedimentation rate R70.0 ; Hypothyroid E03.9 and Recurrent major depressive disorder, in partial remission F33.41 [facility] [address] [address] Apr, Hypothyroid E03.9 [facility] [address] [address] Apr, Depression F32.9 [facility] [address] [address] Apr, [facility] [address] [address] March, [facility] [address] [address] March, Hypothyroid E03.9 [facility] [address] [address] March, Diabetes mellitus E11.9 and Hypothyroid E03.9 [facility] [address] [address] March, Diabetes mellitus E11.9 [facility] [address] [address] March, Hypothyroid E03.9 and Elevated liver enz ymes R74.8 [facility] [address] [address] March, Type 2 diabetes mellitus with hyperglyce regina E11.65 ; shelter 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 Z79.4 ; Pulmonary emphysema, unspecified emphysema type J43.9 ; Hypothyroid E03.9 ; Neuropathy G62.9 ; Mixed hyperlipidemia E78.2 ; Chronic pain G89.29 ; Gastroesophageal reflux disease with esophagitis K21.0 ; Irritable bowel syndrome with diarrhea K58.0 ; Overactive bladder N32.81 and Recurrent major depressive disorder, in partial remission F33.41 [facility] [address] [address] Feb, Chronic pain G89.[address] [address] Feb, Type 2 diabetes mellitus with hyperglyce regina E11.65 and Skin lesion of scalp L98.[address] [address] Feb, [facility] [address] [address] Jan, Type 2 diabetes mellitus with hyperglyce regina E11.65 ; shelter 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 Z79.4 ; Essential (primary) hypertension I10 ; Pulmonary emphysema, unspecified emphysema type J43.9 ; Chronic pain G89.29 ; Controlled substance agreement signed Z79.899 ; Hypothyroid E03.9 ; Neuropathy G62.9 ; Gastroesophageal reflux disease with esophagitis K21.0 ; Overactive bladder N32.81 ; Depression F32.9 and Irritable bowel syndrome with diarrhea K58.0 [facility] [address] [address] Jan, [facility] [address] [address] Jan, Controlled substance agreement signed Z7 9.899 [facility] [place] [address] [address] 08 Dec, 2017 Type 2 diabetes mellitus with hyperglyce regina E11.65 ; Controlled substance agreement signed Z79.899 ; shelter 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 Z79.4 ; Essential (primary) hypertension I10 ; Hypothyroid E03.9 ; Neuropathy G62.9 ; Depression F32.9 ; Mixed hyperlipidemia E78.2 ; Irritable bowel syndrome with diarrhea K58.0 ; Gastroesophageal reflux disease with esophagitis K21.0 ; Thrombocytosis D47.3 ; Current non-adherence to medical treatment Z91.19 and Overweight (BMI 25.0-29.9) E66.3 [facility] [address] [address] 02 Dec, 2017 Controlled substance agreement signed Z7 9.899 [facility] [address] [address] Nov, Type 2 diabetes mellitus with hyperglyce regina E11.65 and Current non- adherence to medical treatment Z91.19 [facility] [address] [address] Nov, [facility] [address] [address] Nov, Chronic pain G89.29 [facility] [place] [address] [address] Nov, [facility] [address] [address] Nov, Hypothyroid E03.9 [facility] [address] [address] Nov, Hypothyroid E03.9 [facility] [address] [address] Nov, Pulmonary emphysema, unspecified emphyse ma type J43.9 and Irritable bowel syndrome with diarrhea K58.0 [facility] [address] [address] Oct, [facility] [address] [address] Oct, [facility] [place] [address] [address] Oct, [facility] [address] [address] Oct, [facility] [address] [address] Oct, Chronic pain G89.29 [facility] [address] [address] Oct, Diabetes mellitus E11.9 ; Depression F32 .9 ; Mixed hyperlipidemia E78.2 ; Hypotension, unspecified hypotension type I95.9 ; Pulmonary emphysema, unspecified emphysema type J43.9 and Weight loss, unintentional R63.4 [facility] [address] [address] Oct, Chronic pain G89.29 [facility] [place] [address] [address] Sep, Chronic pain G89.29 [facility] [address] [address] Sep, Hypothyroid E03.9 and Diabetes mellitus E11.9 [facility] [place] [address] [address] Aug, Type 2 diabetes mellitus with hyperglyce regina E11.65 ; shelter 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 Z79.4 ; Essential (primary) hypertension I10 ; Hypothyroid E03.9 ; Neuropathy G62.9 ; Chronic pain G89.29 ; Mixed hyperlipidemia E78.2 and Encounter for immunization Z23 [facility] [address] [address] Aug, Chronic pain G89.29 [facility] [address] [address] Aug, Overactive bladder N32.81 ; Diabetes alvarez litus E11.9 and Chronic pain G89.29 [facility] [address] [address] Jul, [facility] [address] [address] Jun, [facility] [address] [address] Jun, [facility] [address] [address] Jun, Hypothyroid E03.9 [facility] [address] [address] Jun, Diabetes mellitus E11.9 ; Hypothyroid E0 3.9 ; Neuropathy G62.9 ; Chronic pain G89.29 and Neck mass R22.1 [facility] [address] [address] Apr, [facility] [address] [address] Apr, Acute cystitis without hematuria N30.00 [facility] [address] [address] March, [facility] [address] [address] March, [facility] [address] [address] March, Near syncope R55 [facility] [address] [address] Feb, [facility] [address] [address] Feb, Chronic pain G89.29 [facility] [address] [address] Feb, [facility] [address] [address] Feb, [facility] [place] [address] [address] 24 Jan, 2017 Chronic pain G89.29 [facility] [address] [address] Jan, [facility] [address] [address] 16 Jan, 2017 [facility] [address] [address] 14 Jan, 2017 Diabetes mellitus E11.9 ; Hypothyroid E0 3.9 ; GERD (gastroesophageal reflux disease) K21.9 ; Insomnia G47.00 ; Functional 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 ; Neuropathy G62.9 ; Depression F32.9 ; Chronic pain G89.29 ; Irritable bowel syndrome with diarrhea K58.0 ; Overactive bladder N32.81 ; Mixed hyperlipidemia E78.2 and Bronchitis J40 [facility] [place] [address] [address] Dec, [facility] [address] [address] Dec, [facility] [place] [address] [address] Dec, [facility] [place] [address] [address] Dec, [facility] [place] [address] [address] Dec, Chronic pain G89.29 [facility] [place] [address] [address] Dec, [facility] [address] [address] Dec, [facility] [address] [address] Dec, Type 2 diabetes mellitus with foot ulcer E11.621 [facility] [address] [address] 17 Feb, 2017 Type 2 diabetes mellitus with foot ulcer E11.621 [facility] [place] [address] [address] 14 Dec, 2016 HTN (hypertension) I10 ; Depression F32. 9 ; Type 2 diabetes mellitus with foot ulcer E11.621 ; Functional 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 ; Irritable bowel syndrome with diarrhea K58.0 ; Chronic pain G89.29 ; Insomnia G47.00 ; Overactive bladder N32.81 ; Mixed hyperlipidemia E78.2 ; Gastroesophageal reflux disease with esophagitis K21.0 and Acquired hypothyroidism E03.9 [facility] [place] [address] [address] Nov, [facility] [place] [address] [address] Oct, [facility] [address] [address] Oct, [facility] [place] [address] [address] Oct, [facility] [place] [address] [address] Sep, Functional 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 ; HTN (hyperte nsion) I10 ; Diabetes mellitus E11.9 ; Depression F32.9 ; Overactive bladder N32.81 ; Mixed hyperlipidemia E78.2 ; Gastroesophageal reflux disease without esophagitis K21.9 ; Chronic pain G89.29 ; Insomnia G47.00 and Acquired hypothyroidism E03.9 [facility] [place] [address] [address] Sep, [address] [address] Aug, Encounter for immunization Z23 [address] [address] Aug, [address] [address] Jul, [address] [address] Jun, Type 2 diabetes mellitus without complic ations E11.9 ; HTN (hypertension) I10 ; Hypothyroid E03.9 ; Neuropathy G62.9 ; Depression F32.9 ; Chronic pain G89.29 ; GERD (gastroesophageal reflux disease) K21.9 ; Insomnia G47.00 ; Overactive bladder N32.81 ; Mixed hyperlipidemia E78.2 ; Diarrhea of infectious origin A09 and Environmental allergies Z91.09 [facility] [place] [address] [address] Apr, [facility] [address] [address] March, Hypothyroidism, unspecified E03.9 and Mi xed hyperlipidemia E78.2 [facility] [place] [address] [address] March, Diabetes mellitus E11.9 ; HTN (hypertens ion) I10 ; Hypothyroid E03.9 ; Depression F32.9 ; Overactive bladder N32.81 ; Other chronic pain G89.29 ; Lumbago with sciatica, unspecified side M54.40 ; Environmental allergies Z91.09 and Gastroesophageal reflux disease, esophagitis presence not specified K21.9 [facility] [place] [address] [address] March, [facility] [place] [address] [address] Jan, HTN (hypertension) I10 ; Hypothyroid E03 .9 ; Neuropathy G62.9 ; Diabetes mellitus E11.9 ; Chronic pain G89.29 ; GERD (gastroesophageal reflux disease) K21.9 ; Overactive bladder N32.81 and Depression F32.9 [facility] [place] [address] [address] Dec, Ear pain, left H92.02 ; HTN (hypertensio n) I10 ; Hypothyroid E03.9 ; Neuropathy G62.9 ; Diabetes mellitus E11.9 ; Depression F32.9 ; GERD (gastroesophageal reflux disease) K21.9 ; Insomnia G47.00 and Overactive bladder N32.81 [facility] [address] [address] 14 Nov, 2015 Overactive bladder N32.81 and Chronic pa in G89.29 [facility] [address] [address] 11 Nov, 2015 Kidney failure N19 [facility] [address] [address] Nov, [facility] [place] [address] [address] 08 Nov, 2015 [place] [address] [address] Nov, Diabetes mellitus E11.9 ; Depression F32 .9 ; Chronic pain G89.29 ; GERD (gastroesophageal reflux disease) K21.9 ; Insomnia G47.00 ; HTN (hypertension) I10 ; Hypothyroid E03.9 ; COPD (chronic obstructive pulmonary disease) J44.9 ; Bladder incontinence R32 and Incontinence R32 [facility] [address] [address] Sep, Type 2 diabetes mellitus with foot ulcer E11.621 and Chromosomal abnormality, 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 [facility] [place] [address] [address] Sep, [facility] [place] [address] [address] Aug, [facility] [place] [address] [address] Aug, [address] [address] Aug, HTN (hypertension) I10 ; Encounter for i mmunization Z23 ; Hypothyroid E03.9 ; Neuropathy G62.9 ; Diabetes mellitus E11.9 ; Depression F32.9 ; Chronic pain G89.29 ; GERD (gastroesophageal reflux disease) K21.9 ; Insomnia G47.00 and COPD (chronic obstructive pulmonary disease) J44.9 [place] [address] [place] [address] Jun, [facility] [address] [address] Jun, [facility] [address] [address] May, Essential hypertension, benign 401.1 ; U nspecified hypothyroidism 244.9 ; Insomnia, unspecified 780.52 ; Shortness of breath 786.05 ; Depression 311 ; COPD (chronic obstructive pulmonary disease) 496 ; GERD (gastroesophageal reflux disease) 530.81 and Diabetes 1.5, 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 [facility] [address] [address] May, [facility] [address] [address] May, [facility] [address] [address] May, Shortness of breath 786.05 ; Essential h ypertension, benign 401.1 ; Diabetes mellitus 250.00 ; Hyperlipidemia 272.4 ; Hypothyroid 244.9 ; Insomnia 780.52 and Cough 786.2 [facility] [address] [address] Apr, [facility] [address] [address] March, Shortness of breath 786.05 ; Nausea with vomiting 787.01 ; Essential hypertension, benign 401.1 ; Diabetes mellitus 250.00 ; Hyperlipidemia 272.4 and Hypothyroid 244.9 [facility] [address] [address] Feb, [facility] [address] [address] Feb, [facility] [address] [address] Jan, [facility] [address] [address] Jan, [facility] [address] [id number] [place] [address] Jan, [facility] [address] [id number] [place] [address] Jan, [facility] [address] [id number] [place] [address] Jan, 2014 [facility] [address] [id number] [place] [address] Jan, 2014 [facility] [address] [id number] [place] [address] Jan, [facility] [address] [id number] [place] [address] Jan, [facility] [address] [id number] [place] [address] Jan, [facility] [address] [id number] [place] [address] Jan, [facility] [address] [id number] [place] [address] Dec, 2014 [facility] [address] [id number] [place] [address] Dec, 2014 [facility] [address] [id number] [place] [address] Dec, 2014 [facility] [address] [id number] [place] [address] Dec, 2014 [facility] [address] [id number] [place] [address] Dec, 2014 [facility] [address] [id number] [place] [address] Dec, 2014 [facility] [address] [id number] [place] [address] Dec, 2014 [facility] [address] [id number] [place] [address] Dec, 2014 [facility] [address] [id number] [place] [address] 04 Dec, 2014 [facility] [address] [id number] [place] [address] Dec, [facility] [address] [id number] [place] [address] Oct, [facility] [address] [id number] [place] [address] Oct, [facility] [address] [id number] [place] [address] Oct, [facility] [address] [id number] [place] [address] Oct, [facility] [address] [id number] [place] [address] Oct, [facility] [address] [id number] [place] [address] Oct, [facility] [address] [id number] [place] [address] Oct, [facility] [address] [id number] [place] [address] Oct, [facility] [address] [id number] [place] [address] Oct, [facility] [address] [id number] [place] [address] Oct, [facility] [address] [id number] [place] [address] Oct, [facility] [address] [id number] [place] [address] Oct, [facility] [address] [id number] [place] [address] Oct, [facility] [address] [id number] [place] [address] Oct, [facility] [address] [id number] [place] [address] Sep, [facility] [address] [id number] [place] [address] Sep, [facility] [address] [id number] [place] [address] Sep, [facility] [address] [id number] [place] [address] Sep, [facility] [address] [id number] [place] [address] Sep, [facility] [address] [id number] [place] [address] Sep, [facility] [address] [id number] [place] [address] Sep, [facility] [address] [id number] [place] [address] Sep, [facility] [address] [id number] [place] [address] Sep, [facility] [address] [id number] [place] [address] Aug, [facility] [address] [id number] [place] [address] Aug, [facility] [address] [id number] [place] [address] Aug, [facility] [address] [id number] [place] [address] Aug, [facility] [address] [id number] [place] [address] Aug, [facility] [address] [id number] [place] [address] Aug, [facility] [address] [id number] [place] [address] Aug, [facility] [address] [id number] [place] [address] Aug, [facility] [address] [id number] [place] [address] Aug, [facility] [address] [facility] [id number] [place] [address] Jul, [facility] [address] [facility] [id number] [place] [address] Jul, [facility] [address] [id number] [place] [address] Jul, [facility] [facility] [address] [facility] [id number] [place] [address] Jul, [facility] [facility] [address] [facility] [id number] [place] [address] Jul, [facility] [facility] [address] [facility] [id number] [place] [address] Jul, [facility] [facility] [address] [id number] [place] [address] Jul, [facility] [facility] [address] [id number] [place] [address] Jul, [facility] [address] [facility] [id number] [place] [address] Jul, [facility] [facility] [address] [id number] [place] [address] Jul, [facility] [address] [id number] [place] [address] Jun, [facility] [facility] [address] [id number] [place] [address] Jun, [facility] [address] [facility] [id number] [place] [address] Jun, [facility] [address] [id number] [place] [address] Jun, [facility] [address] [facility] [id number] [place] [address] Jun, [facility] [facility] [address] [id number] [place] [address] Jun, [facility] [address] [id number] [place] [address] Jun, [facility] [address] [id number] [place] [address] Jun, [facility] [address] [facility] [id number] [place] [address] Jun, [facility] [address] [facility] [id number] [place] [address] Jun, [facility] [address] [facility] [id number] [place] [address] Jun, [facility] [address] [facility] [id number] [place] [address] Jun, [facility] [address] [facility] [id number] [place] [address] May, [facility] [address] [id number] [place] [address] May, [facility] [address] [id number] [place] [address] May, [facility] [address] [facility] [id number] [place] [address] May, [facility] [address] [id number] [place] [address] May, [facility] [address] [id number] [place] [address] May, [facility] [address] [facility] [id number] [place] [address] March, [facility] [address] [facility] [id number] [place] [address] March, [facility] [address] [id number] [place] [address] March, [facility] [address] [facility] [id number] [place] [address] March, [facility] [address] [id number] [place] [address] March, [facility] [address] [id number] [place] [address] March, [facility] [address] [id number] [place] [address] Feb, [facility] [address] [id number] [place] [address] Feb, [facility] [address] [id number] [place] [address] Feb, [facility] [address] [facility] [id number] [place] [address] Feb, [facility] [address] [id number] [place] [address] Jan, [facility] [address] [id number] [place] [address] Jan, [facility] [address] [id number] [place] [address] Jan, [facility] [address] [id number] [place] [address] Jan, [facility] [address] [id number] [place] [address] Jan, [facility] [address] [id number] [place] [address] Jan, [facility] [address] [id number] [place] [address] Jan, [facility] [address] [id number] [place] [address] Jan, [facility] [address] [id number] [place] [address] Jan, [facility] [address] [id number] [place] [address] Jan, [facility] [address] [id number] [place] [address] Jan, [facility] [address] [id number] [place] [address] Jan, [facility] [address] [facility] [id number] [place] [address] Dec, [facility] [address] [id number] [place] [address] Dec, [facility] [address] [id number] [place] [address] Dec, [facility] [address] [id number] [place] [address] Dec, [facility] [address] [id number] [place] [address] Dec, [facility] [address] [id number] [place] [address] Dec, [facility] [address] [id number] [place] [address] Nov, [facility] [address] [id number] [place] [address] Nov, [facility] [address] [id number] [place] [address] Oct, [facility] [address] [id number] [place] [address] Oct, [facility] [address] [id number] [place] [address] Oct, [facility] [address] [id number] [place] [address] Oct, [facility] [address] [id number] [place] [address] Oct, [facility] [address] [id number] [place] [address] Oct, [facility] [address] [id number] [place] [address] Sep, [facility] [address] [id number] [place] [address] Sep, [facility] [address] [id number] [place] [address] Sep, [facility] [address] [id number] [place] [address] Sep, [facility] [address] [id number] [place] [address] Aug, [facility] [address] [id number] [place] [address] Aug, [facility] [address] [id number] [place] [address] Aug, [facility] [address] [id number] [place] [address] Jul, [facility] [address] [id number] [place] [address] Jul, [facility] [address] [id number] [place] [address] Jul, [facility] [address] [id number] [place] [address] Jun, [facility] [address] [id number] [place] [address] Jun, [facility] [address] [id number] [place] [address] Jun, [facility] [address] [id number] [place] [address] Apr, [facility] [address] [id number] [place] [address] Apr, [facility] [address] [id number] [place] [address] March, [facility] [address] [id number] [place] [address] March, [facility] [address] [id number] [place] [address] March, [facility] [address] [id number] [place] [address] March, [facility] [address] [id number] [place] [address] Feb, [facility] [address] [id number] [place] [address] Jan, [facility] [address] [id number] [place] [address] 13 Dec, 2012 [facility] [address] [id number] [place] [address] 08 Dec, 2012 [facility] [address] [id number] [place] [address] Dec, [facility] [address] [id number] [place] [address] Nov, [facility] [address] [id number] [place] [address] Oct, [facility] [address] [id number] [place] [address] Oct, [facility] [address] [id number] [place] [address] Sep, [facility] [address] [id number] [place] [address] Sep, [facility] [address] [id number] [place] [address] Sep, [facility] [address] [id number] [place] [address] Sep, [facility] [address] [id number] [place] [address] Sep, [facility] [address] [id number] [place] [address] Sep, [facility] [address] [id number] [place] [address] Sep, [facility] [address] [id number] [place] [address] Aug, [facility] [address] [id number] [place] [address] 16 Aug, 2012 [facility] [address] [facility] [id number] [place] [address] 10 Aug, 2012 [facility] [address] [id number] [place] [address] 10 Aug, 2012 [facility] [address] [id number] [place] [address] 08 Aug, 2012 [facility] [address] [id number] [place] [address] 08 Aug, 2012 [facility] [address] [id number] [place] [address] Aug, [facility] [address] [id number] [place] [address] Aug, [facility] [address] [id number] [place] [address] Jul, [facility] [address] [id number] [place] [address] Jul, [facility] [address] [id number] [place] [address] Jun, [facility] [address] [id number] [place] [address] May, [facility] [address] [id number] [place] [address] Apr, [facility] [address] [id number] [place] [address] Apr, [facility] [address] [id number] [place] [address] Apr, [facility] [address] [id number] [place] [address] March, [facility] [address] [id number] [place] [address] March, [facility] [address] [id number] [place] [address] March, [facility] [address] [id number] [place] [address] March, [facility] [address] [id number] [place] [address] March, [facility] [address] [id number] [place] [address] March, [facility] [address] [id number] [place] [address] March, [facility] [address] [id number] [place] [address] Jan, [facility] [address] [id number] [place] [address] Jan, [facility] [address] [id number] [place] [address] Jan, [facility] [address] [id number] [place] [address] Jan, [facility] [address] [id number] [place] [address] Jan, [facility] [address] [id number] [place] [address] Dec, [facility] [address] [id number] [place] [address] Dec, [facility] [address] [id number] [place] [address] Nov, [facility] [address] [id number] [place] [address] Nov, [facility] [address] [id number] [place] [address] Nov, [facility] [address] [id number] [place] [address] Nov, [facility] [address] [id number] [place] [address] Oct, [facility] [address] [id number] [place] [address] 06 Oct, 2011 [facility] [address] [id number] [place] [address] 14 Sep, 2011 [facility] [address] [id number] [place] [address] 10 Sep, 2011 [facility] [address] [id number] [place] [address] 10 Sep, 2011 [facility] [address] [id number] [place] [address] 11 May, 2011 [facility] [address] [id number] [place] [address] 20 Nov, 2010 [facility] [address] [id number] [place] [address] 29 Oct, 2010 [facility] [address] [id number] [place] [address] 14 Oct, 2010 [facility] [address] [id number] [place] [address] 08 Oct, 2010 [facility] [address] [id number] [place] [address] 15 Sep, 2010 [facility] [address] [id number] [place] [address] Sep, [facility] [address] [id number] [place] [address] Aug, [facility] [address] [id number] [place] [address] March, [facility] [address] [id number] [place] [address] Oct, [facility] [address] [id number] [place] [address] 17 Oct, 2009 [facility] [address] [id number] [place] [address] Oct, [facility] [address] [id number] [place] [address] Oct, [facility] [address] [id number] [place] [address] Sep, [facility] [address] [id number] [place] [address] Sep, [facility] [address] [id number] [place] [address] Sep, [facility] [address] [id number] [place] [address] Aug, [facility] [address] [id number] [place] [address] Aug, [facility] [address] [id number] [place] [address] Aug, [facility] [address] [id number] [place] [address] Jan, IMMUNIZATIONS No Known Immunizations SOCIAL HISTORY [...]
--- OUTSIDE RECORDS SUMMARY | 2020-06-13 16:04 | XMS REPORT ---
Author Author Jah Durant Doctor Organization [facility] Address Unknown Phone Unavailable Care Team Providers Care Galvanizer Name Role Phone Migration, Doctor Unavailable Unavailable PROBLEMS Type Condition ICD9-CM Code [id number] Code Onset Dates Condition S tatus SNOMED Code Problem Neuropathy G62.9 Active 454742157 Problem Chronic pain G89.29 Active 2996821 1 Problem Overactive bladder N32.81 Active 2 50852217 Problem Hypothyroid E03.9 Active 81140309 Problem Irritable bowel syndrome with diarrhea K58.0 Active 844861256 Problem [facility] 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 Z79.4 Active 386580775 Problem Type 2 diabetes mellitus with hyperglycemia E11.65 Active 89294446 Problem Chronic obstructive pulmonary disease, unspecified COPD ty pe J44.9 Active 36912538 Problem Gastroesophageal reflux disease with esophagitis K 21.0 Active 634450246 Problem Major depressive disorder, recurrent, in full remission F33.42 Active 03760445 Problem Mixed hyperlipidemia E78.2 Active 354155704 Problem Essential (primary) hypertension I10 Active 85709068 Problem Anxiety disorder, unspecified type F41.9 Active 779984549 Problem Gastroparesis K31.84 Active 828217 006 Problem 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 Active 580101206 ALLERGIES No Information ENCOUNTERS Encounter Location Date Diagnosis [facility] [id number] [place] [address] Dec, [facility] [id number] [place] [address] Dec, Chronic pain G89.29 [facility] [address] [address] Dec, [facility] [id number] [place] [address] Dec, [facility] [address] [address] Nov, Chronic pain G89.29 [facility] [place] [address] [address] Oct, Chronic pain G89.29 [facility] [address] [address] Sep, Chronic pain G89.29 [facility] [address] [address] Sep, Type 2 diabetes mellitus with diabetic a utonomic (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 ; Irritable bowel syndrome with diarrhea K58.0 ; Essential (primary) hypertension I10 and Encounter for immunization Z23 [facility] [address] [address] Aug, Chronic pain G89.29 [facility] [address] [address] Aug, [place] [address] [address] Jul, Chronic pain G89.29 [facility] [address] [address] Jun, Other chronic pain G89.29 [facility] [place] [address] [address] Jun, [place] [address] [address] Jun, Chronic pain G89.29 [facility] [place] [address] [address] Jun, Neuropathy G62.9 [place] [address] [address] Jun, Encounter for Medicare annual wellness e xam Z00.00 ; Type 2 diabetes mellitus with hyperglycemia E11.65 ; Mixed hyperlipidemia E78.2 ; Hypothyroid E03.9 ; Gastroesophageal reflux disease with esophagitis K21.0 ; Essential (primary) hypertension I10 ; Major depressive disorder, recurrent, in full remission F33.42 ; Chronic obstructive pulmonary disease, unspecified COPD type J44.9 ; Neuropathy G62.9 and Encounter for immunization Z23 [place] [address] [address] Jun, Irritable bowel syndrome with diarrhea K 58.0 [facility] [address] [address] May, Chronic pain G89.29 [facility] [place] [address] [address] May, Type 2 diabetes mellitus with hyperglyce regina E11.65 and Neuropathy G62.9 [facility] [place] [address] [address] May, Chronic pain G89.29 [facility] [place] [address] [address] Apr, Poison maryam dermatitis L23.7 [facility] [place] [address] [address] Apr, Chronic pain G89.29 [facility] [address] [address] March, Type 2 diabetes mellitus with hyperglyce regina E11.65 [facility] [address] [address] March, Chronic pain G89.29 [facility] [address] [address] March, [address] [place] [address] Feb, [facility] [address] [address] Feb, Other chronic pain G89.29 and Chronic pa in G89.29 [facility] [address] [address] Jan, Mixed hyperlipidemia E78.[address] [address] Jan, Chronic pain G89.29 [facility] [address] [address] 08 Jan, 2019 Type 2 diabetes mellitus with hyperglyce regina E11.65 ; Mixed hyperlipidemia E78.2 ; [facility]FP 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 Z79.4 ; Acquired hypothyroidism E03.9 and Essential (primary) hypertension I10 [facility] [address] [address] 11 Dec, 2018 Chronic pain G89.29 [facility] [address] [address] 14 Nov, 2018 Chronic pain G89.29 [facility] [place] [address] [address] Nov, [facility] [address] [address] Oct, Chronic pain G89.29 [facility] [address] [address] Oct, [place] [address] [address] Sep, [facility] [address] [address] Sep, Type 2 diabetes mellitus with hyperglyce regina E11.65 [facility] [address] [address] Sep, Chronic pain G89.29 [facility] [address] [address] Sep, [place] [address] [address] Sep, Type 2 diabetes mellitus with hyperglyce regina E11.65 ; Irritable bowel syndrome with diarrhea K58.0 ; Gastroparesis K31.84 ; 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 and Dermatitis L30.9 [facility] [address] [address] Aug, Chronic pain G89.29 [facility] [address] [address] Jul, Chronic pain G89.29 [facility] [address] [address] Jun, Type 2 diabetes mellitus with hyperglyce regina E11.65 ; Neuropathy G62.9 ; Recurrent major depressive disorder, in partial remission F33.41 ; Chronic pain G89.29 and Hypertriglyceridemia E78.1 [place] [address] [address] Jun, Hypothyroid E03.9 [facility] [address] [address] Jun, Major depressive disorder, recurrent epi sode, moderate F33.1 and Anxiety disorder, unspecified type F41.9 [place] [address] [address] Jun, [place] [address] [address] Jun, Type 2 diabetes mellitus with hyperglyce regina E11.65 ; [facility]FP 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 Z79.4 ; Recurrent major depressive disorder, in partial remission F33.41 ; Hypothyroid E03.9 ; Candidal dermatitis B37.2 and Weakness generalized R53.1 [place] [address] [address] May, [facility] [address] [address] May, [place] [address] [address] May, [place] [address] [address] May, Generalized abdominal pain R10.84 and Ca ndidal dermatitis B37.2 [facility] [address] [address] May, [place] [address] [address] 17 May, 2018 [place] [address] [address] May, Nodular radiologic density R93.8 ; Weigh t loss, unintentional R63.4 and Pulmonary emphysema, unspecified emphysema type J43.9 [facility] [address] [address] May, Chronic pain G89.29 [place] [address] [address] 09 May, 2018 Syncope and collapse R55 ; Chronic fatig ue R53.[address] lung screening R91.8 [place] [address] [address] May, [place] [address] [address] Apr, Chronic fatigue R53.82 ; Abnormal chest CT R93.8 ; Elevated erythrocyte sedimentation rate R70.0 ; Hypothyroid E03.9 and Recurrent major depressive disorder, in partial remission F33.41 [place] [address] [address] Apr, Hypothyroid E03.9 [place] [address] [address] Apr, Depression F32.9 [place] [address] [address] Apr, [place] [address] [address] March, [place] [address] [address] March, Hypothyroid E03.9 [place] [address] [address] March, Diabetes mellitus E11.9 and Hypothyroid E03.9 [place] [address] [address] March, Diabetes mellitus E11.9 [place] [address] [address] March, Hypothyroid E03.9 and Elevated liver enz ymes R74.8 [place] [address] [address] March, Type 2 diabetes mellitus with hyperglyce regina E11.65 ; [facility]FP 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 Z79.4 ; Pulmonary emphysema, unspecified emphysema type J43.9 ; Hypothyroid E03.9 ; Neuropathy G62.9 ; Mixed hyperlipidemia E78.2 ; Chronic pain G89.29 ; Gastroesophageal reflux disease with esophagitis K21.0 ; Irritable bowel syndrome with diarrhea K58.0 ; Overactive bladder N32.81 and Recurrent major depressive disorder, in partial remission F33.41 [place] [address] [address] Feb, Chronic pain G89.29 [facility] [address] [address] Feb, Type 2 diabetes mellitus with hyperglyce regina E11.65 and Skin lesion of scalp L98.9 [place] [address] [address] Feb, [place] [address] [address] Jan, Type 2 diabetes mellitus with hyperglyce regina E11.65 ; [facility] 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 Z79.4 ; Essential (primary) hypertension I10 ; Pulmonary emphysema, unspecified emphysema type J43.9 ; Chronic pain G89.29 ; Controlled substance agreement signed Z79.899 ; Hypothyroid E03.9 ; Neuropathy G62.9 ; Gastroesophageal reflux disease with esophagitis K21.0 ; Overactive bladder N32.81 ; Depression F32.9 and Irritable bowel syndrome with diarrhea K58.0 [place] [address] [address] Jan, [place] [address] [address] Jan, Controlled substance agreement signed Z7 9.899 [place] [address] [address] 08 Dec, 2017 Type 2 diabetes mellitus [...] treatment Z91.19 and Overweight (BMI 25.0-29.9) E66.3 [place] [address] [address] 02 Dec, 2017 Controlled substance agreement signed Z7 9.899 [place] [address] [address] Nov, Type 2 diabetes mellitus with hyperglyce regina E11.65 and Current non- adherence to medical treatment Z91.19 [place] [address] [address] Nov, [place] [address] [address] Nov, Chronic pain G89.29 [place] [address] [address] Nov, [place] [address] [address] Nov, Hypothyroid E03.9 [place] [address] [address] Nov, Hypothyroid E03.9 [place] [address] [address] Nov, Pulmonary emphysema, unspecified emphyse ma type J43.9 and Irritable bowel syndrome with diarrhea K58.0 [place] [address] [address] Oct, [place] [address] [address] Oct, [place] [address] [address] Oct, [place] [address] [address] Oct, [place] [address] [address] Oct, Chronic pain G89.[address] [address] Oct, Diabetes mellitus E11.9 ; Depression F32 .9 ; Mixed hyperlipidemia E78.2 ; Hypotension, unspecified hypotension type I95.9 ; Pulmonary emphysema, unspecified emphysema type J43.9 and Weight loss, unintentional R63.[address] [address] Oct, Chronic pain G89.[address] [address] Sep, Chronic pain G89.[address] [address] Sep, Hypothyroid E03.9 and Diabetes mellitus E11.[address] [address] Aug, Type 2 diabetes mellitus with hyperglyce regina E11.65 ; [facility]FP current use of insulin Z79.4 ; Essential (primary) hypertension I10 ; Hypothyroid E03.9 ; Neuropathy G62.9 ; Chronic pain G89.29 ; Mixed hyperlipidemia E78.2 and Encounter for immunization Z23 [place] [address] [address] Aug, Chronic pain G89.[address] [address] Aug, Overactive bladder N32.81 ; Diabetes alvarez litus E11.9 and Chronic pain G89.29 [facility] [address] [address] Jul, [facility] [address] [address] Jun, [facility] [address] [address] Jun, [facility] [address] [address] Jun, Hypothyroid E03.9 [facility] [address] [address] Jun, Diabetes mellitus E11.9 ; Hypothyroid E0 3.9 ; Neuropathy G62.9 ; Chronic pain G89.29 and Neck mass R22.1 [facility] [address] [address] Apr, [facility] [address] [address] Apr, Acute cystitis without hematuria N30.00 [facility] [address] [address] March, [facility] [address] [address] March, [facility] [address] [address] March, Near syncope R55 [facility] [address] [address] Feb, [facility] [address] [address] Feb, Chronic pain G89.29 [facility] [address] [address] Feb, [facility] [address] [address] Feb, [place] [address] [address] Jan, Chronic pain G89.29 [place] [address] [address] Jan, [place] [address] [address] 16 Jan, 2017 [place] [address] [address] 14 Jan, 2017 Diabetes mellitus E11.9 ; Hypothyroid E0 3.9 ; GERD (gastroesophageal reflux disease) K21.9 ; Insomnia G47.00 ; Functional 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 ; Neuropathy G62.9 ; Depression F32.9 ; Chronic pain G89.29 ; Irritable bowel syndrome with diarrhea K58.0 ; Overactive bladder N32.81 ; Mixed hyperlipidemia E78.2 and Bronchitis J40 [place] [address] [address] Dec, [place] [address] [address] Dec, [place] [address] [address] Dec, [place] [address] [address] Dec, [place] [address] [address] Dec, Chronic pain G89.29 [place] [address] [address] Dec, [place] [address] [address] Dec, [place] [address] [address] Dec, Type 2 diabetes mellitus with foot ulcer E11.621 [place] [address] [address] Dec, Type 2 diabetes mellitus with foot ulcer E11.621 [place] [address] [address] 14 Dec, 2016 HTN (hypertension) I10 ; Depression F32. 9 ; Type 2 diabetes mellitus with foot ulcer E11.621 ; Functional 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 ; Irritable bowel syndrome with diarrhea K58.0 ; Chronic pain G89.29 ; Insomnia G47.00 ; Overactive bladder N32.81 ; Mixed hyperlipidemia E78.2 ; Gastroesophageal reflux disease with esophagitis K21.0 and Acquired hypothyroidism E03.9 [place] [address] [address] Nov, [address] [address] Oct, [address] [address] Oct, [address] [address] Oct, [address] [address] Sep, Functional 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 ; HTN (hyperte nsion) I10 ; Diabetes mellitus E11.9 ; Depression F32.9 ; Overactive bladder N32.81 ; Mixed hyperlipidemia E78.2 ; Gastroesophageal reflux disease without esophagitis K21.9 ; Chronic pain G89.29 ; Insomnia G47.00 and Acquired hypothyroidism E03.[address] [address] Sep, [address] [address] Aug, Encounter for immunization Z23 [address] [address] Aug, [address] [address] Jul, [address] [address] Jun, Type 2 diabetes mellitus without complic ations E11.9 ; HTN (hypertension) I10 ; Hypothyroid E03.9 ; Neuropathy G62.9 ; Depression F32.9 ; Chronic pain G89.29 ; GERD (gastroesophageal reflux disease) K21.9 ; Insomnia G47.00 ; Overactive bladder N32.81 ; Mixed hyperlipidemia E78.2 ; Diarrhea of infectious origin A09 and Environmental allergies Z91.09 [place] [address] [address] Apr, [place] [address] [address] March, Hypothyroidism, unspecified E03.9 and Mi xed hyperlipidemia E78.2 [place] [address] [address] March, Diabetes mellitus E11.9 ; HTN (hypertens ion) I10 ; Hypothyroid E03.9 ; Depression F32.9 ; Overactive bladder N32.81 ; Other chronic pain G89.29 ; Lumbago with sciatica, unspecified side M54.40 ; Environmental allergies Z91.09 and Gastroesophageal reflux disease, esophagitis presence not specified K21.9 [place] [address] [address] March, [address] [address] Jan, HTN (hypertension) I10 ; Hypothyroid E03 .9 ; Neuropathy G62.9 ; Diabetes mellitus E11.9 ; Chronic pain G89.29 ; GERD (gastroesophageal reflux disease) K21.9 ; Overactive bladder N32.81 and Depression F32.9 [place] [address] [address] Dec, Ear pain, left H92.02 ; HTN (hypertensio n) I10 ; Hypothyroid E03.9 ; Neuropathy G62.9 ; Diabetes mellitus E11.9 ; Depression F32.9 ; GERD (gastroesophageal reflux disease) K21.9 ; Insomnia G47.00 and Overactive bladder N32.81 [place] [address] [address] 14 Nov, 2015 Overactive bladder N32.81 and Chronic pa in G89.29 [place] [address] [address] 11 Nov, 2015 Kidney failure N19 [place] [address] [address] 08 Nov, 2015 [place] [address] [address] 08 Nov, 2015 [place] [address] [address] Nov, Diabetes mellitus E11.9 ; Depression F32 .9 ; Chronic pain G89.29 ; GERD (gastroesophageal reflux disease) K21.9 ; Insomnia G47.00 ; HTN (hypertension) I10 ; Hypothyroid E03.9 ; COPD (chronic obstructive pulmonary disease) J44.9 ; Bladder incontinence R32 and Incontinence R32 [place] [address] [address] Sep, Type 2 diabetes mellitus with foot ulcer E11.621 and Chromosomal abnormality, 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 [address] Sep, [address] [address] Aug, [address] [address] Aug, [address] [address] Aug, HTN (hypertension) I10 ; Encounter for i mmunization Z23 ; Hypothyroid E03.9 ; Neuropathy G62.9 ; Diabetes mellitus E11.9 ; Depression F32.9 ; Chronic pain G89.29 ; GERD (gastroesophageal reflux disease) K21.9 ; Insomnia G47.00 and COPD (chronic obstructive pulmonary disease) J44.9 [place] [address] [address] Jun, [facility] [address] [address] Jun, [facility] [address] [address] May, Essential hypertension, benign 401.1 ; U nspecified hypothyroidism 244.9 ; Insomnia, unspecified 780.52 ; Shortness of breath 786.05 ; Depression 311 ; COPD (chronic obstructive pulmonary disease) 496 ; GERD (gastroesophageal reflux disease) 530.81 and Diabetes 1.5, 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 [facility] [address] [address] May, [facility] [address] [address] May, [facility] [address] [address] May, Shortness of breath 786.05 ; Essential h ypertension, benign 401.1 ; Diabetes mellitus 250.00 ; Hyperlipidemia 272.4 ; Hypothyroid 244.9 ; Insomnia 780.52 and Cough 786.2 [facility] [address] [address] Apr, [facility] [address] [address] March, Shortness of breath 786.05 ; Nausea with vomiting 787.01 ; Essential hypertension, benign 401.1 ; Diabetes mellitus 250.00 ; Hyperlipidemia 272.4 and Hypothyroid 244.9 [facility] [address] [address] Feb, [facility] [address] [address] Feb, [facility] [address] [address] Jan, [facility] [address] [address] Jan, [facility] [address] [facility] [id number] [place] [address] Jan, [facility] [address] [id number] [place] [address] Jan, 2014 [facility] [address] [id number] [place] [address] Jan, 2014 [facility] [address] [id number] [place] [address] Jan, 2014 [facility] [address] [id number] [place] [address] Jan, [facility] [address] [id number] [place] [address] Jan, [facility] [address] [id number] [place] [address] Jan, [facility] [address] [id number] [place] [address] Jan, 2014 [facility] [address] [id number] [place] [address] Dec, 2014 [facility] [address] [id number] [place] [address] Dec, 2014 [facility] [address] [id number] [place] [address] Dec, 2014 [facility] [address] [id number] [place] [address] Dec, 2014 [facility] [address] [id number] [place] [address] Dec, 2014 [facility] [address] [id number] [place] [address] Dec, 2014 [facility] [address] [id number] [place] [address] Dec, 2014 [facility] [address] [id number] [place] [address] Dec, 2014 [facility] [address] [id number] [place] [address] 04 Dec, 2014 [facility] [address] [id number] [place] [address] Dec, [facility] [address] [id number] [place] [address] Oct, [facility] [address] [id number] [place] [address] Oct, [facility] [address] [id number] [place] [address] Oct, [facility] [address] [id number] [place] [address] Oct, [facility] [address] [id number] [place] [address] Oct, [facility] [address] [id number] [place] [address] Oct, [facility] [address] [id number] [place] [address] Oct, [facility] [address] [id number] [place] [address] Oct, [facility] [address] [id number] [place] [address] Oct, [facility] [address] [id number] [place] [address] Oct, [facility] [address] [id number] [place] [address] Oct, [facility] [address] [id number] [place] [address] Oct, [facility] [address] [id number] [place] [address] Oct, [facility] [address] [id number] [place] [address] Oct, [facility] [address] [id number] [place] [address] Sep, [facility] [address] [id number] [place] [address] Sep, [facility] [address] [id number] [place] [address] Sep, [facility] [address] [id number] [place] [address] Sep, [facility] [address] [id number] [place] [address] Sep, [facility] [address] [id number] [place] [address] Sep, [facility] [address] [id number] [place] [address] Sep, [facility] [address] [id number] [place] [address] Sep, [facility] [address] [id number] [place] [address] Sep, [facility] [address] [id number] [place] [address] Aug, [facility] [address] [id number] [place] [address] Aug, [facility] [address] [facility] [id number] [place] [address] Aug, [facility] [address] [facility] [id number] [place] [address] Aug, [facility] [address] [facility] [id number] [place] [address] 16 Aug, 2014 [facility] [address] [facility] [id number] [place] [address] Aug, [facility] [address] [facility] [id number] [place] [address] Aug, [facility] [address] [facility] [id number] [place] [address] Aug, [facility] [address] [id number] [facility] [place] [address] Aug, [facility] [address] [id number] [facility] [place] [address] Jul, [facility] [address] [facility] [id number] [place] [address] Jul, [facility] [address] [id number] [place] [address] Jul, [facility] [address] [facility] [id number] [facility] [employer] [facility] [facility] [place] [address] Jul, [facility] [address] [facility] [id number] [place] [employer] [facility] [address] Jul, [facility] [place] [address] [id number] [place] [address] Jul, [facility] [address] [id number] [place] [address] Jul, [facility] [address] [id number] [place] [address] Jul, [facility] [place] [address] [facility] [id number] [place] [facility] [place] [employer] [facility] [address] Jul, [facility] [place] [address] [id number] [place] [address] Jul, [facility] [address] [id number] [place] [address] Jun, [facility] [place] [address] [id number] [place] [facility] [facility] [place] [address] Jun, [facility] [address] [facility] [id number] [place] [address] Jun, [facility] [address] [id number] [place] [address] Jun, [facility] [address] [id number] [place] [address] Jun, [facility] [place] [address] [id number] [place] [address] Jun, [facility] [place] [address] [id number] [place] [employer] [facility] [place] [address] Jun, [facility] [place] [address] [facility] [id number] [place] [address] Jun, [facility] [address] [facility] [id number] [place] [address] Jun, [facility] [place] [address] [facility] [id number] [place] [address] Jun, [facility] [address] [facility] [id number] [place] [address] Jun, [facility] [place] [address] [facility] [id number] [place] [address] Jun, [facility] [place] [address] [id number] [place] [address] May, [facility] [address] [id number] [place] [address] May, [facility] [address] [id number] [place] [address] May, [facility] [place] [address] [facility] [id number] [place] [address] May, [facility] [place] [address] [id number] [place] [address] May, [facility] [place] [address] [id number] [place] [address] May, [facility] [place] [address] [facility] [id number] [place] [address] March, [facility] [place] [address] [facility] [id number] [place] [address] March, [facility] [place] [address] [id number] [place] [address] March, [facility] [address] [facility] [id number] [place] [address] March, [facility] [address] [id number] [place] [address] March, [facility] [place] [address] [id number] [place] [address] March, [facility] [address] [id number] [place] [address] Feb, [facility] [address] [id number] [place] [address] Feb, [facility] [address] [id number] [place] [address] Feb, [facility] [address] [facility] [id number] [place] [address] Feb, [facility] [address] [id number] [place] [address] Jan, [facility] [address] [id number] [place] [address] Jan, [facility] [address] [id number] [place] [address] Jan, [facility] [address] [id number] [place] [address] Jan, [facility] [address] [id number] [place] [address] Jan, [facility] [address] [id number] [place] [address] Jan, [facility] [address] [id number] [place] [address] Jan, [facility] [address] [id number] [place] [address] Jan, [facility] [address] [id number] [place] [address] Jan, [facility] [address] [id number] [place] [address] Jan, [facility] [address] [id number] [place] [address] Jan, [facility] [address] [id number] [place] [address] Jan, [facility] [address] [id number] [place] [address] Dec, [facility] [address] [id number] [place] [address] Dec, [facility] [place] [address] [id number] [place] [address] Dec, [facility] [place] [address] [id number] [place] [address] Dec, [facility] [address] [id number] [place] [address] Dec, [facility] [address] [id number] [place] [address] Dec, [facility] [address] [id number] [place] [address] Nov, [facility] [address] [id number] [place] [address] Nov, [facility] [address] [id number] [place] [address] Oct, [facility] [address] [id number] [place] [address] Oct, [facility] [address] [id number] [place] [address] Oct, [facility] [address] [id number] [place] [address] Oct, [facility] [address] [id number] [place] [address] Oct, [facility] [id number] [place] [address] Oct, [facility] [address] [id number] [place] [address] Sep, [facility] [address] [id number] [place] [address] Sep, [facility] [address] [facility] [id number] [place] [address] Sep, [facility] [address] [id number] [place] [address] Sep, [facility] [address] [id number] [place] [address] Aug, [facility] [address] [id number] [place] [address] Aug, [facility] [address] [id number] [place] [address] Aug, [facility] [address] [id number] [place] [address] Jul, [facility] [address] [id number] [place] [address] Jul, [facility] [address] [id number] [place] [address] Jul, [facility] [address] [id number] [place] [address] Jun, [facility] [address] [id number] [place] [address] Jun, [facility] [address] [id number] [place] [address] Jun, [facility] [address] [id number] [place] [address] Apr, [facility] [address] [id number] [place] [address] Apr, [facility] [address] [id number] [place] [address] March, [facility] [address] [id number] [place] [address] March, [facility] [address] [id number] [place] [address] March, [facility] [address] [id number] [place] [address] March, [facility] [address] [id number] [place] [address] Feb, [facility] [address] [id number] [place] [address] Jan, [facility] [address] [id number] [place] [address] 13 Dec, 2012 [facility] [address] [id number] [place] [address] 08 Dec, 2012 [facility] [address] [id number] [place] [address] Dec, [facility] [address] [id number] [place] [address] Nov, [facility] [address] [id number] [place] [address] Oct, [facility] [address] [id number] [place] [address] Oct, [facility] [address] [id number] [place] [address] Sep, [facility] [address] [id number] [place] [address] Sep, [facility] [address] [id number] [place] [address] Sep, [facility] [address] [id number] [place] [address] Sep, [facility] [address] [id number] [place] [address] Sep, [facility] [address] [id number] [place] [address] Sep, [facility] [address] [id number] [place] [address] Sep, [facility] [address] [id number] [place] [address] Aug, [facility] [address] [id number] [place] [address] 16 Aug, 2012 [facility] [address] [id number] [place] [address] 10 Aug, 2012 [facility] [address] [id number] [place] [address] 10 Aug, 2012 [facility] [address] [id number] [place] [address] 08 Aug, 2012 [facility] [address] [id number] [place] [address] 08 Aug, 2012 [facility] [address] [id number] [place] [address] Aug, [facility] [address] [id number] [place] [address] Aug, [facility] [address] [id number] [place] [address] Jul, [facility] [address] [id number] [place] [address] Jul, [facility] [address] [id number] [place] [address] Jun, [facility] [address] [id number] [place] [address] May, [facility] [address] [id number] [place] [address] Apr, [facility] [address] [id number] [place] [address] Apr, [facility] [address] [id number] [place] [address] Apr, [facility] [address] [id number] [place] [address] March, [facility] [address] [id number] [place] [address] March, [facility] [address] [id number] [place] [address] March, [facility] [address] [id number] [place] [address] March, [facility] [address] [id number] [place] [address] March, [facility] [address] [id number] [place] [address] March, [facility] [address] [id number] [place] [address] March, [facility] [address] [id number] [place] [address] Jan, [facility] [address] [id number] [place] [address] Jan, [facility] [address] [id number] [place] [address] Jan, [facility] [address] [id number] [place] [address] Jan, [facility] [place] [facility] [address] [id number] [place] [address] Jan, [facility] [facility] [address] [id number] [place] [address] Dec, [facility] [address] [id number] [place] [address] Dec, [facility] [address] [id number] [place] [address] Nov, [facility] [address] [id number] [place] [address] Nov, [facility] [facility] [address] [id number] [place] [address] Nov, [facility] [address] [id number] [place] [address] Nov, [facility] [address] [id number] [place] [address] Oct, [facility] [address] [id number] [place] [address] 06 Oct, 2011 [facility] [address] [id number] [place] [address] 14 Sep, 2011 [facility] [address] [id number] [place] [address] 10 Sep, 2011 [facility] [address] [id number] [place] [address] 10 Sep, 2011 [facility] [address] [id number] [place] [address] 11 May, 2011 [facility] [address] [id number] [place] [address] 20 Nov, 2010 [facility] [address] [id number] [place] [address] 29 Oct, 2010 [facility] [address] [id number] [place] [address] 14 Oct, 2010 [facility] [address] [id number] [place] [address] 08 Oct, 2010 [facility] [address] [id number] [place] [address] 15 Sep, 2010 [facility] [address] [id number] [place] [address] Sep, [facility] [address] [id number] [place] [address] Aug, [facility] [address] [id number] [place] [address] March, [facility] [address] [id number] [place] [address] Oct, [facility] [address] [id number] [place] [address] Oct, [facility] [address] [id number] [place] [address] Oct, [facility] [address] [id number] [place] [address] Oct, [facility] [address] [id number] [place] [address] Sep, [facility] [address] [id number] [place] [address] Sep, [facility] [address] [id number] [place] [address] Sep, [facility] [address] [id number] [place] [address] Aug, [facility] [address] [id number] [place] [address] Aug, [facility] [id number] [place] [address] Aug, [facility] [address] [id number] [place] [address] Jan, IMMUNIZATIONS No Known Immunizations SOCIAL HISTORY [...]
--- OUTSIDE RECORDS SUMMARY | 2020-06-13 16:05 | XMS REPORT ---
Author Author Jah Durant Doctor Organization [facility] Address Unknown Phone Unavailable Care Team Providers Care Graphics Artist Name Role Phone Migration, Doctor Unavailable Unavailable PROBLEMS Type Condition ICD9-CM Code AER79-SJ Code Onset Dates Condition S tatus SNOMED Code Problem Neuropathy G62.9 Active 101642811 Problem Chronic pain G89.29 Active 6140298 1 Problem Overactive bladder N32.81 Active 2 77685884 Problem Hypothyroid E03.9 Active 90671530 Problem Irritable bowel syndrome with diarrhea K58.0 Active 855706558 Problem retirement current use of insulin Z79.4 Active 863110621 Problem Type 2 diabetes mellitus with hyperglycemia E11.65 Active 73759096 Problem Chronic obstructive pulmonary disease, unspecified COPD ty pe J44.9 Active 34554134 Problem Gastroesophageal reflux disease with esophagitis K 21.0 Active 466122681 Problem Major depressive disorder, recurrent, in full remission F33.42 Active 77580871 Problem Mixed hyperlipidemia E78.2 Active 428534925 Problem Essential (primary) hypertension I10 Active 89987943 Problem Anxiety disorder, unspecified type F41.9 Active 034401225 Problem Gastroparesis K31.84 Active 964404 006 Problem 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 Active 104901418 ALLERGIES No Information ENCOUNTERS Encounter Location Date Diagnosis [facility] [id number] [place] [address] Dec, [facility] [id number] [place] [address] Dec, Chronic pain G89.29 [facility] [address] [address] Dec, [facility] [address] [address] Dec, [facility] [address] [address] Nov, Chronic pain G89.29 [facility] [address] [address] Oct, Chronic pain G89.29 [facility] [address] [address] Sep, Chronic pain G89.29 [facility] [address] [address] Sep, Type 2 diabetes mellitus with diabetic a utonomic (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 ; Irritable bowel syndrome with diarrhea K58.0 ; Essential (primary) hypertension I10 and Encounter for immunization Z23 [facility] [address] [address] Aug, Chronic pain G89.29 [facility] [address] [address] Aug, [facility] [address] [address] Jul, Chronic pain G89.29 [facility] [address] [address] Jun, Other chronic pain G89.29 [facility] [address] [address] Jun, [facility] [address] [address] Jun, Chronic pain G89.29 [facility] [address] [address] Jun, Neuropathy G62.9 [facility] [address] [address] Jun, Encounter for Medicare annual wellness e xam Z00.00 ; Type 2 diabetes mellitus with hyperglycemia E11.65 ; Mixed hyperlipidemia E78.2 ; Hypothyroid E03.9 ; Gastroesophageal reflux disease with esophagitis K21.0 ; Essential (primary) hypertension I10 ; Major depressive disorder, recurrent, in full remission F33.42 ; Chronic obstructive pulmonary disease, unspecified COPD type J44.9 ; Neuropathy G62.9 and Encounter for immunization Z23 [facility] [address] [address] Jun, Irritable bowel syndrome with diarrhea K 58.0 [facility] [address] [address] May, Chronic pain G89.29 [facility] [address] [address] May, Type 2 diabetes mellitus with hyperglyce regina E11.65 and Neuropathy G62.9 [facility] [address] [address] May, Chronic pain G89.29 [facility] [address] [address] Apr, Poison maryam dermatitis L23.7 [facility] [address] [address] Apr, Chronic pain G89.29 [facility] [address] [address] March, Type 2 diabetes mellitus with hyperglyce regina E11.65 [facility] [address] [address] March, Chronic pain G89.29 [facility] [address] [address] March, [place] [place] [address] Feb, [facility] [address] [address] Feb, Other chronic pain G89.29 and Chronic pa in G89.29 [facility] [address] [address] Jan, Mixed hyperlipidemia E78.[address] [address] Jan, Chronic pain G89.29 [facility] [address] [address] 08 Jan, 2019 Type 2 diabetes mellitus with hyperglyce regina E11.65 ; Mixed hyperlipidemia E78.2 ; retirement current use of insulin Z79.4 ; Acquired hypothyroidism E03.9 and Essential (primary) hypertension I10 [facility] [address] [address] 11 Dec, 2018 Chronic pain G89.29 [facility] [address] [address] 14 Nov, 2018 Chronic pain G89.29 [facility] [address] [address] Nov, [facility] [address] [address] Oct, Chronic pain G89.29 [facility] [address] [address] Oct, [facility] [address] [address] Sep, [facility] [address] [address] Sep, Type 2 diabetes mellitus with hyperglyce regina E11.65 [facility] [address] [address] Sep, Chronic pain G89.29 [facility] [address] [address] Sep, [facility] [address] [address] Sep, Type 2 diabetes mellitus with hyperglyce regina E11.65 ; Irritable bowel syndrome with diarrhea K58.0 ; Gastroparesis K31.84 ; 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 and Dermatitis L30.9 [facility] [address] [address] Aug, Chronic pain G89.29 [facility] [address] [address] Jul, Chronic pain G89.29 [facility] [address] [address] Jun, Type 2 diabetes mellitus with hyperglyce regina E11.65 ; Neuropathy G62.9 ; Recurrent major depressive disorder, in partial remission F33.41 ; Chronic pain G89.29 and Hypertriglyceridemia E78.1 [facility] [address] [address] Jun, Hypothyroid E03.9 [facility] [address] [address] Jun, Major depressive disorder, recurrent epi sode, moderate F33.1 and Anxiety disorder, unspecified type F41.9 [facility] [address] [address] Jun, [facility] [address] [address] Jun, Type 2 diabetes mellitus with hyperglyce regina E11.65 ; retirement current use of insulin Z79.4 ; Recurrent major depressive disorder, in partial remission F33.41 ; Hypothyroid E03.9 ; Candidal dermatitis B37.2 and Weakness generalized R53.1 [facility] [address] [address] May, [facility] [address] [address] May, [facility] [address] [address] May, [facility] [address] [address] May, Generalized abdominal pain R10.84 and Ca ndidal dermatitis B37.2 [facility] [address] [address] May, [facility] [address] [address] 17 May, 2018 [facility] [address] [address] May, Nodular radiologic density R93.8 ; Weigh t loss, unintentional R63.4 and Pulmonary emphysema, unspecified emphysema type J43.9 [facility] [address] [address] May, Chronic pain G89.29 [facility] [address] [address] 09 May, 2018 Syncope and collapse R55 ; Chronic fatig ue R53.[address] lung screening R91.8 [facility] [address] [address] May, [facility] [address] [address] Apr, Chronic fatigue R53.82 ; Abnormal chest CT R93.8 ; Elevated erythrocyte sedimentation rate R70.0 ; Hypothyroid E03.9 and Recurrent major depressive disorder, in partial remission F33.41 [facility] [address] [address] Apr, Hypothyroid E03.9 [facility] [address] [address] Apr, Depression F32.9 [facility] [address] [address] Apr, [facility] [address] [address] March, [facility] [address] [address] March, Hypothyroid E03.9 [facility] [address] [address] March, Diabetes mellitus E11.9 and Hypothyroid E03.9 [facility] [address] [address] March, Diabetes mellitus E11.9 [facility] [address] [address] March, Hypothyroid E03.9 and Elevated liver enz ymes R74.8 [facility] [address] [address] March, Type 2 diabetes mellitus with hyperglyce regina E11.65 ; retirement current use of insulin Z79.4 ; Pulmonary emphysema, unspecified emphysema type J43.9 ; Hypothyroid E03.9 ; Neuropathy G62.9 ; Mixed hyperlipidemia E78.2 ; Chronic pain G89.29 ; Gastroesophageal reflux disease with esophagitis K21.0 ; Irritable bowel syndrome with diarrhea K58.0 ; Overactive bladder N32.81 and Recurrent major depressive disorder, in partial remission F33.41 [facility] [address] [address] Feb, Chronic pain G89.29 [facility] [address] [address] Feb, Type 2 diabetes mellitus with hyperglyce regina E11.65 and Skin lesion of scalp L98.9 [facility] [address] [address] Feb, [facility] [address] [address] Jan, Type 2 diabetes mellitus with hyperglyce regina E11.65 ; retirement current use of insulin Z79.4 ; Essential (primary) hypertension I10 ; Pulmonary emphysema, unspecified emphysema type J43.9 ; Chronic pain G89.29 ; Controlled substance agreement signed Z79.899 ; Hypothyroid E03.9 ; Neuropathy G62.9 ; Gastroesophageal reflux disease with esophagitis K21.0 ; Overactive bladder N32.81 ; Depression F32.9 and Irritable bowel syndrome with diarrhea K58.0 [facility] [address] [address] Jan, [facility] [address] [address] Jan, Controlled substance agreement signed Z7 9.899 [facility] [address] [address] 08 Dec, 2017 Type 2 diabetes mellitus with hyperglyce regina E11.65 ; Controlled substance agreement signed Z79.899 ; retirement current use of insulin Z79.4 ; Essential (primary) hypertension I10 ; Hypothyroid E03.9 ; Neuropathy G62.9 ; Depression F32.9 ; Mixed hyperlipidemia E78.2 ; Irritable bowel syndrome with diarrhea K58.0 ; Gastroesophageal reflux disease with esophagitis K21.0 ; Thrombocytosis D47.3 ; Current non-adherence to medical treatment Z91.19 and Overweight (BMI 25.0-29.9) E66.3 [facility] [address] [address] 02 Dec, 2017 Controlled substance agreement signed Z7 9.899 [facility] [address] [address] Nov, Type 2 diabetes mellitus with hyperglyce regina E11.65 and Current non- adherence to medical treatment Z91.19 [facility] [address] [address] Nov, [facility] [address] [address] Nov, Chronic pain G89.29 [facility] [address] [address] Nov, [facility] [address] [address] Nov, Hypothyroid E03.9 [facility] [address] [address] Nov, Hypothyroid E03.9 [facility] [address] [address] Nov, Pulmonary emphysema, unspecified emphyse ma type J43.9 and Irritable bowel syndrome with diarrhea K58.0 [facility] [address] [address] Oct, [facility] [address] [address] Oct, [facility] [address] [address] Oct, [facility] [address] [address] Oct, [facility] [address] [address] Oct, Chronic pain G89.[address] [address] Oct, Diabetes mellitus E11.9 ; Depression F32 .9 ; Mixed hyperlipidemia E78.2 ; Hypotension, unspecified hypotension type I95.9 ; Pulmonary emphysema, unspecified emphysema type J43.9 and Weight loss, unintentional R63.[address] [address] Oct, Chronic pain G89.[address] [address] Sep, Chronic pain G89.[address] [address] Sep, Hypothyroid E03.9 and Diabetes mellitus E11.[address] [address] Aug, Type 2 diabetes mellitus with hyperglyce regina E11.65 ; retirement current use of insulin Z79.4 ; Essential (primary) hypertension I10 ; Hypothyroid E03.9 ; Neuropathy G62.9 ; Chronic pain G89.29 ; Mixed hyperlipidemia E78.2 and Encounter for immunization Z23 [facility] [address] [address] Aug, Chronic pain G89.[address] [address] Aug, Overactive bladder N32.81 ; Diabetes alvarez litus E11.9 and Chronic pain G89.29 [facility] [address] [address] Jul, [facility] [address] [address] Jun, [facility] [address] [address] Jun, [facility] [address] [address] Jun, Hypothyroid E03.9 [facility] [address] [address] Jun, Diabetes mellitus E11.9 ; Hypothyroid E0 3.9 ; Neuropathy G62.9 ; Chronic pain G89.29 and Neck mass R22.1 [facility] [address] [address] Apr, [facility] [address] [address] Apr, Acute cystitis without hematuria N30.00 [facility] [address] [address] March, [facility] [address] [address] March, [facility] [address] [address] March, Near syncope R55 [facility] [address] [address] Feb, [facility] [address] [address] Feb, Chronic pain G89.29 [facility] [address] [address] Feb, [facility] [address] [address] Feb, [facility] [address] [address] Jan, Chronic pain G89.29 [facility] [address] [address] Jan, [facility] [address] [address] 16 Jan, 2017 [facility] [address] [address] 14 Jan, 2017 Diabetes mellitus E11.9 ; Hypothyroid E0 3.9 ; GERD (gastroesophageal reflux disease) K21.9 ; Insomnia G47.00 ; Functional 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 ; Neuropathy G62.9 ; Depression F32.9 ; Chronic pain G89.29 ; Irritable bowel syndrome with diarrhea K58.0 ; Overactive bladder N32.81 ; Mixed hyperlipidemia E78.2 and Bronchitis J40 [facility] [address] [address] Dec, [facility] [address] [address] Dec, [facility] [address] [address] Dec, [facility] [address] [address] Dec, [facility] [address] [address] Dec, Chronic pain G89.29 [facility] [address] [address] Dec, [facility] [address] [address] Dec, [facility] [address] [address] Dec, Type 2 diabetes mellitus with foot ulcer E11.621 [facility] [address] [address] Dec, Type 2 diabetes mellitus with foot ulcer E11.621 [facility] [address] [address] 14 Dec, 2016 HTN (hypertension) I10 ; Depression F32. 9 ; Type 2 diabetes mellitus with foot ulcer E11.621 ; Functional 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 ; Irritable bowel syndrome with diarrhea K58.0 ; Chronic pain G89.29 ; Insomnia G47.00 ; Overactive bladder N32.81 ; Mixed hyperlipidemia E78.2 ; Gastroesophageal reflux disease with esophagitis K21.0 and Acquired hypothyroidism E03.9 [facility] [address] [address] Nov, [address] [address] Oct, [address] [address] Oct, [address] [address] Oct, [address] [address] Sep, Functional 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 ; HTN (hyperte nsion) I10 ; Diabetes mellitus E11.9 ; Depression F32.9 ; Overactive bladder N32.81 ; Mixed hyperlipidemia E78.2 ; Gastroesophageal reflux disease without esophagitis K21.9 ; Chronic pain G89.29 ; Insomnia G47.00 and Acquired hypothyroidism E03.[address] [address] Sep, [address] [address] Aug, Encounter for immunization Z23 [address] [address] Aug, [address] [address] Jul, [address] [address] Jun, Type 2 diabetes mellitus without complic ations E11.9 ; HTN (hypertension) I10 ; Hypothyroid E03.9 ; Neuropathy G62.9 ; Depression F32.9 ; Chronic pain G89.29 ; GERD (gastroesophageal reflux disease) K21.9 ; Insomnia G47.00 ; Overactive bladder N32.81 ; Mixed hyperlipidemia E78.2 ; Diarrhea of infectious origin A09 and Environmental allergies Z91.09 [facility] [address] [address] Apr, [facility] [address] [address] March, Hypothyroidism, unspecified E03.9 and Mi xed hyperlipidemia E78.2 [facility] [address] [address] March, Diabetes mellitus E11.9 ; HTN (hypertens ion) I10 ; Hypothyroid E03.9 ; Depression F32.9 ; Overactive bladder N32.81 ; Other chronic pain G89.29 ; Lumbago with sciatica, unspecified side M54.40 ; Environmental allergies Z91.09 and Gastroesophageal reflux disease, esophagitis presence not specified K21.9 [facility] [address] [address] March, [address] [address] Jan, HTN (hypertension) I10 ; Hypothyroid E03 .9 ; Neuropathy G62.9 ; Diabetes mellitus E11.9 ; Chronic pain G89.29 ; GERD (gastroesophageal reflux disease) K21.9 ; Overactive bladder N32.81 and Depression F32.9 [facility] [address] [address] Dec, Ear pain, left H92.02 ; HTN (hypertensio n) I10 ; Hypothyroid E03.9 ; Neuropathy G62.9 ; Diabetes mellitus E11.9 ; Depression F32.9 ; GERD (gastroesophageal reflux disease) K21.9 ; Insomnia G47.00 and Overactive bladder N32.81 [facility] [address] [address] 14 Nov, 2015 Overactive bladder N32.81 and Chronic pa in G89.29 [facility] [address] [address] 11 Nov, 2015 Kidney failure N19 [facility] [address] [address] 08 Nov, 2015 [facility] [address] [address] 08 Nov, 2015 [facility] [place] [address] [address] Nov, Diabetes mellitus E11.9 ; Depression F32 .9 ; Chronic pain G89.29 ; GERD (gastroesophageal reflux disease) K21.9 ; Insomnia G47.00 ; HTN (hypertension) I10 ; Hypothyroid E03.9 ; COPD (chronic obstructive pulmonary disease) J44.9 ; Bladder incontinence R32 and Incontinence R32 [facility] [place] [address] [address] Sep, Type 2 diabetes mellitus with foot ulcer E11.621 and Chromosomal abnormality, 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 [address] Sep, [address] [address] Aug, [address] [address] Aug, [address] [address] Aug, HTN (hypertension) I10 ; Encounter for i mmunization Z23 ; Hypothyroid E03.9 ; Neuropathy G62.9 ; Diabetes mellitus E11.9 ; Depression F32.9 ; Chronic pain G89.29 ; GERD (gastroesophageal reflux disease) K21.9 ; Insomnia G47.00 and COPD (chronic obstructive pulmonary disease) J44.9 [facility] [address] [address] Jun, [facility] [address] [address] Jun, [facility] [address] [address] May, Essential hypertension, benign 401.1 ; U nspecified hypothyroidism 244.9 ; Insomnia, unspecified 780.52 ; Shortness of breath 786.05 ; Depression 311 ; COPD (chronic obstructive pulmonary disease) 496 ; GERD (gastroesophageal reflux disease) 530.81 and Diabetes 1.5, 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 [facility] [address] [address] May, [facility] [address] [address] May, [facility] [address] [address] May, Shortness of breath 786.05 ; Essential h ypertension, benign 401.1 ; Diabetes mellitus 250.00 ; Hyperlipidemia 272.4 ; Hypothyroid 244.9 ; Insomnia 780.[address] [facility] [address] [address] Apr, [facility] [address] [address] March, Shortness of breath 786.05 ; Nausea with vomiting 787.01 ; Essential hypertension, benign 401.1 ; Diabetes mellitus 250.00 ; Hyperlipidemia 272.[address] [facility] [address] [address] Feb, [facility] [address] [address] Feb, [facility] [address] [address] Jan, [facility] [address] [address] Jan, [facility] [address] [id number] [place] [address] Jan, [facility] [address] [id number] [place] [address] Jan, 2014 [facility] [address] [id number] [place] [address] Jan, 2014 [facility] [address] [id number] [place] [address] Jan, 2014 [facility] [address] [id number] [place] [address] Jan, [facility] [address] [id number] [place] [address] Jan, [facility] [address] [id number] [place] [address] Jan, [facility] [address] [id number] [place] [address] Jan, 2014 [facility] [address] [id number] [place] [address] Dec, 2014 [facility] [address] [id number] [place] [address] Dec, 2014 [facility] [address] [id number] [place] [address] Dec, 2014 [facility] [address] [id number] [place] [address] Dec, 2014 [facility] [address] [id number] [place] [address] Dec, 2014 [facility] [address] [id number] [place] [address] Dec, 2014 [facility] [address] [id number] [place] [address] Dec, 2014 [facility] [address] [id number] [place] [address] Dec, 2014 [facility] [address] [id number] [place] [address] 04 Dec, 2014 [facility] [address] [id number] [place] [address] Dec, [facility] [address] [id number] [place] [address] Oct, [facility] [address] [id number] [place] [address] Oct, [facility] [address] [id number] [place] [address] Oct, [facility] [address] [id number] [place] [address] Oct, [facility] [address] [id number] [place] [address] Oct, [facility] [address] [id number] [place] [address] Oct, [facility] [address] [id number] [place] [address] Oct, [facility] [address] [id number] [place] [address] Oct, [facility] [address] [id number] [place] [address] Oct, [facility] [address] [id number] [place] [address] Oct, [facility] [address] [id number] [place] [address] Oct, [facility] [address] [id number] [place] [address] Oct, [facility] [address] [id number] [place] [address] Oct, [facility] [address] [id number] [place] [address] Oct, [facility] [address] [id number] [place] [address] Sep, [facility] [address] [id number] [place] [address] Sep, [facility] [address] [id number] [place] [address] Sep, [facility] [address] [id number] [place] [address] Sep, [facility] [address] [id number] [place] [address] Sep, [facility] [address] [id number] [place] [address] Sep, [facility] [address] [id number] [place] [address] Sep, [facility] [address] [id number] [place] [address] Sep, [facility] [address] [id number] [place] [address] Sep, [facility] [address] [id number] [place] [address] Aug, [facility] [address] [id number] [place] [address] Aug, [facility] [address] [id number] [place] [address] Aug, [facility] [address] [id number] [place] [address] Aug, [facility] [address] [id number] [place] [address] 16 Aug, 2014 [facility] [address] [id number] [place] [address] Aug, [facility] [address] [id number] [place] [address] Aug, [facility] [address] [id number] [place] [address] Aug, [facility] [address] [id number] [facility] [address] Aug, [facility] [address] [id number] [facility] [place] [address] Jul, [facility] [address] [facility] [id number] [place] [address] Jul, [facility] [address] [id number] [place] [address] Jul, [facility] [address] [facility] [id number] [facility] [place] [address] Jul, [facility] [address] [facility] [id number] [facility] [address] Jul, [facility] [address] [id number] [place] [address] Jul, [facility] [address] [id number] [place] [address] Jul, [facility] [address] [id number] [place] [address] Jul, [facility] [address] [facility] [id number] [facility] [address] Jul, [facility] [address] [id number] [place] [address] Jul, [facility] [address] [id number] [place] [address] Jun, [facility] [address] [id number] [facility] [place] [address] Jun, [facility] [address] [facility] [id number] [place] [address] Jun, [facility] [address] [id number] [place] [address] Jun, [facility] [address] [id number] [place] [address] Jun, [facility] [address] [id number] [place] [address] Jun, [facility] [address] [id number] [facility] [address] Jun, [facility] [address] [facility] [id number] [place] [address] Jun, [facility] [address] [facility] [id number] [place] [address] Jun, [facility] [address] [facility] [id number] [place] [address] Jun, [facility] [address] [facility] [id number] [place] [address] Jun, [facility] [address] [facility] [id number] [place] [address] Jun, [facility] [address] [id number] [place] [address] May, [facility] [address] [id number] [place] [address] May, [facility] [address] [id number] [place] [address] May, [facility] [address] [facility] [id number] [place] [address] May, [facility] [address] [id number] [place] [address] May, [facility] [address] [id number] [place] [address] May, [facility] [address] [facility] [id number] [place] [address] March, [facility] [address] [facility] [id number] [place] [address] March, [facility] [address] [id number] [place] [address] March, [facility] [address] [facility] [id number] [place] [address] March, [facility] [address] [id number] [place] [address] March, [facility] [address] [id number] [place] [address] March, [facility] [address] [id number] [place] [address] Feb, [facility] [address] [id number] [place] [address] Feb, [facility] [address] [id number] [place] [address] Feb, [facility] [address] [facility] [id number] [place] [address] Feb, [facility] [address] [id number] [place] [address] Jan, [facility] [address] [id number] [place] [address] Jan, [facility] [address] [id number] [place] [address] Jan, [facility] [address] [id number] [place] [address] Jan, [facility] [address] [id number] [place] [address] Jan, [facility] [address] [id number] [place] [address] Jan, [facility] [address] [id number] [place] [address] Jan, [facility] [address] [id number] [place] [address] Jan, [facility] [address] [id number] [place] [address] Jan, [facility] [address] [id number] [place] [address] Jan, [facility] [address] [id number] [place] [address] Jan, [facility] [address] [id number] [place] [address] Jan, [facility] [address] [id number] [place] [address] Dec, [facility] [address] [id number] [place] [address] Dec, [facility] [address] [id number] [place] [address] Dec, [facility] [address] [id number] [place] [address] Dec, [facility] [address] [id number] [place] [address] Dec, [facility] [address] [id number] [place] [address] Dec, [facility] [address] [id number] [place] [address] Nov, [facility] [address] [id number] [place] [address] Nov, [facility] [address] [id number] [place] [address] Oct, [facility] [address] [id number] [place] [address] Oct, [facility] [address] [id number] [place] [address] Oct, [facility] [address] [id number] [place] [address] Oct, [facility] [address] [id number] [place] [address] Oct, [facility] [address] [id number] [place] [address] Oct, [facility] [address] [id number] [place] [address] Sep, [facility] [address] [id number] [place] [address] Sep, [facility] [address] [facility] [id number] [place] [address] Sep, [facility] [address] [id number] [place] [address] Sep, [facility] [address] [id number] [place] [address] Aug, [facility] [address] [id number] [place] [address] Aug, [facility] [address] [id number] [place] [address] Aug, [facility] [address] [id number] [place] [address] Jul, [facility] [address] [id number] [place] [address] Jul, [facility] [address] [id number] [place] [address] Jul, [facility] [address] [id number] [place] [address] Jun, [facility] [address] [id number] [place] [address] Jun, [facility] [address] [id number] [place] [address] Jun, [facility] [address] [id number] [place] [address] Apr, [facility] [address] [id number] [place] [address] Apr, [facility] [address] [id number] [place] [address] March, [facility] [address] [id number] [place] [address] March, [facility] [address] [id number] [place] [address] March, [facility] [address] [id number] [place] [address] March, [facility] [address] [id number] [place] [address] Feb, [facility] [address] [id number] [place] [address] Jan, [facility] [address] [id number] [place] [address] 13 Dec, 2012 [facility] [address] [id number] [place] [address] 08 Dec, 2012 [facility] [address] [id number] [place] [address] Dec, [facility] [address] [id number] [place] [address] Nov, [facility] [address] [id number] [place] [address] Oct, [facility] [address] [id number] [place] [address] Oct, [facility] [address] [id number] [place] [address] Sep, [facility] [address] [id number] [place] [address] Sep, [facility] [address] [id number] [place] [address] Sep, [facility] [address] [id number] [place] [address] Sep, [facility] [address] [id number] [place] [address] Sep, [facility] [address] [id number] [place] [address] Sep, [facility] [address] [id number] [place] [address] Sep, [facility] [address] [id number] [place] [address] Aug, [facility] [address] [id number] [place] [address] 16 Aug, 2012 [facility] [address] [id number] [place] [address] 10 Aug, 2012 [facility] [address] [id number] [place] [address] 10 Aug, 2012 [facility] [address] [id number] [place] [address] 08 Aug, 2012 [facility] [address] [id number] [place] [address] 08 Aug, 2012 [facility] [address] [id number] [place] [address] Aug, [facility] [address] [id number] [place] [address] Aug, [facility] [address] [id number] [place] [address] Jul, [facility] [address] [id number] [place] [address] Jul, [facility] [address] [id number] [place] [address] Jun, [facility] [address] [id number] [place] [address] May, [facility] [address] [id number] [place] [address] Apr, [facility] [address] [id number] [place] [address] Apr, [facility] [address] [id number] [place] [address] Apr, [facility] [address] [id number] [place] [address] March, [facility] [address] [id number] [place] [address] March, [facility] [address] [id number] [place] [address] March, [facility] [address] [id number] [place] [address] March, [facility] [address] [id number] [place] [address] March, [facility] [address] [id number] [place] [address] March, [facility] [address] [id number] [place] [address] March, [facility] [address] [id number] [place] [address] Jan, [facility] [address] [id number] [place] [address] Jan, [facility] [address] [id number] [place] [address] Jan, [facility] [address] [id number] [place] [address] Jan, [facility] [address] [id number] [place] [address] Jan, [facility] [address] [id number] [place] [address] Dec, [facility] [address] [id number] [place] [address] Dec, [facility] [address] [id number] [place] [address] Nov, [facility] [address] [id number] [place] [address] Nov, [facility] [address] [id number] [place] [address] Nov, [facility] [address] [id number] [place] [address] Nov, [facility] [address] [id number] [place] [address] Oct, [facility] [address] [id number] [place] [address] 06 Oct, 2011 [facility] [address] [id number] [place] [address] 14 Sep, 2011 [facility] [address] [id number] [place] [address] 10 Sep, 2011 [facility] [address] [id number] [place] [address] 10 Sep, 2011 [facility] [address] [id number] [place] [address] 11 May, 2011 [facility] [address] [id number] [place] [address] 20 Nov, 2010 [facility] [address] [id number] [place] [address] 29 Oct, 2010 [facility] [address] [id number] [place] [address] 14 Oct, 2010 [facility] [address] [id number] [place] [address] 08 Oct, 2010 [facility] [address] [id number] [place] [address] 15 Sep, 2010 [facility] [address] [id number] [place] [address] Sep, [facility] [address] [id number] [place] [address] Aug, [facility] [address] [id number] [place] [address] March, [facility] [address] [id number] [place] [address] Oct, [facility] [address] [id number] [place] [address] Oct, [facility] [address] [id number] [place] [address] Oct, [facility] [address] [id number] [place] [address] Oct, [facility] [address] [id number] [place] [address] Sep, [facility] [address] [id number] [place] [address] Sep, [facility] [address] [id number] [place] [address] Sep, [facility] [address] [id number] [place] [address] Aug, [facility] [address] [id number] [place] [address] Aug, [facility] [address] [id number] [place] [address] Aug, [facility] [address] [id number] [place] [address] Jan, IMMUNIZATIONS No Known Immunizations SOCIAL HISTORY [...]
--- OUTSIDE RECORDS SUMMARY | 2020-06-13 16:05 | XMS REPORT ---
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 Name Role Phone Migration, Doctor Unavailable Unavailable PROBLEMS Type Condition ICD9-CM Code RQD09-MI Code Onset Dates Condition S tatus SNOMED Code Problem Neuropathy G62.9 Active 785977970 Problem Chronic pain G89.29 Active 2331145 1 Problem Overactive bladder N32.81 Active 2 17615740 Problem Hypothyroid E03.9 Active 84751034 Problem Irritable bowel syndrome with diarrhea K58.0 Active 789159381 Problem long-term current use of insulin Z79.4 Active 541006236 Problem Type 2 diabetes mellitus with hyperglycemia E11.65 Active 83910300 Problem Chronic obstructive pulmonary disease, unspecified COPD ty pe J44.9 Active 98718146 Problem Gastroesophageal reflux disease with esophagitis K 21.0 Active 821499724 Problem Major depressive disorder, recurrent, in full remission F33.42 Active 49093577 Problem Mixed hyperlipidemia E78.2 Active 664612836 Problem Essential (primary) hypertension I10 Active 79387915 Problem Anxiety disorder, unspecified type F41.9 Active 923701467 Problem Gastroparesis K31.84 Active 223225 006 Problem 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 Active 312092111 ALLERGIES No Information ENCOUNTERS Encounter Location Date Diagnosis [facility] [id number] [place] [address] Dec, [facility] [id number] [place] [address] Dec, Chronic pain G89.29 [facility] [address] [address] Dec, [facility] [address] [address] Dec, [facility] [address] [address] Nov, Chronic pain G89.29 [facility] [address] [address] Oct, Chronic pain G89.29 [facility] [address] [address] Sep, Chronic pain G89.29 [facility] [address] [address] Sep, Type 2 diabetes mellitus with diabetic a utonomic (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 ; Irritable bowel syndrome with diarrhea K58.0 ; Essential (primary) hypertension I10 and Encounter for immunization Z23 [facility] [address] [address] Aug, Chronic pain G89.29 [facility] [address] [address] Aug, [facility] [address] [address] Jul, Chronic pain G89.29 [facility] [address] [address] Jun, Other chronic pain G89.29 [facility] [address] [address] Jun, [facility] [address] [address] Jun, Chronic pain G89.29 [facility] [address] [address] Jun, Neuropathy G62.9 [facility] [address] [address] Jun, Encounter for Medicare annual wellness e xam Z00.00 ; Type 2 diabetes mellitus with hyperglycemia E11.65 ; Mixed hyperlipidemia E78.2 ; Hypothyroid E03.9 ; Gastroesophageal reflux disease with esophagitis K21.0 ; Essential (primary) hypertension I10 ; Major depressive disorder, recurrent, in full remission F33.42 ; Chronic obstructive pulmonary disease, unspecified COPD type J44.9 ; Neuropathy G62.9 and Encounter for immunization Z23 [facility] [address] [address] Jun, Irritable bowel syndrome with diarrhea K 58.0 [facility] [address] [address] May, Chronic pain G89.29 [facility] [address] [address] May, Type 2 diabetes mellitus with hyperglyce regina E11.65 and Neuropathy G62.9 [facility] [address] [address] May, Chronic pain G89.29 [facility] [address] [address] Apr, Poison maryam dermatitis L23.7 [facility] [address] [address] Apr, Chronic pain G89.29 [facility] [address] [address] March, Type 2 diabetes mellitus with hyperglyce regina E11.65 [facility] [address] [address] March, Chronic pain G89.29 [facility] [address] [address] March, [place] [place] [address] Feb, [facility] [address] [address] Feb, Other chronic pain G89.29 and Chronic pa in G89.29 [facility] [address] [address] Jan, Mixed hyperlipidemia E78.[address] [address] Jan, Chronic pain G89.29 [facility] [address] [address] 08 Jan, 2019 Type 2 diabetes mellitus with hyperglyce regina E11.65 ; Mixed hyperlipidemia E78.2 ; long-term current use of insulin Z79.4 ; Acquired hypothyroidism E03.9 and Essential (primary) hypertension I10 [facility] [address] [address] 11 Dec, 2018 Chronic pain G89.29 [facility] [address] [address] 14 Nov, 2018 Chronic pain G89.29 [facility] [address] [address] Nov, [facility] [address] [address] Oct, Chronic pain G89.29 [facility] [address] [address] Oct, [facility] [address] [address] Sep, [facility] [address] [address] Sep, Type 2 diabetes mellitus with hyperglyce regina E11.65 [facility] [address] [address] Sep, Chronic pain G89.29 [facility] [address] [address] Sep, [facility] [address] [address] Sep, Type 2 diabetes mellitus with hyperglyce regina E11.65 ; Irritable bowel syndrome with diarrhea K58.0 ; Gastroparesis K31.84 ; 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 and Dermatitis L30.9 [facility] [address] [address] Aug, Chronic pain G89.29 [facility] [address] [address] Jul, Chronic pain G89.29 [facility] [address] [address] Jun, Type 2 diabetes mellitus with hyperglyce regina E11.65 ; Neuropathy G62.9 ; Recurrent major depressive disorder, in partial remission F33.41 ; Chronic pain G89.29 and Hypertriglyceridemia E78.1 [facility] [address] [address] Jun, Hypothyroid E03.9 [facility] [address] [address] Jun, Major depressive disorder, recurrent epi sode, moderate F33.1 and Anxiety disorder, unspecified type F41.9 [facility] [address] [address] Jun, [facility] [address] [address] Jun, Type 2 diabetes mellitus with hyperglyce regina E11.65 ; long-term current use of insulin Z79.4 ; Recurrent major depressive disorder, in partial remission F33.41 ; Hypothyroid E03.9 ; Candidal dermatitis B37.2 and Weakness generalized R53.1 [facility] [address] [address] May, [facility] [address] [address] May, [facility] [address] [address] May, [facility] [address] [address] May, Generalized abdominal pain R10.84 and Ca ndidal dermatitis B37.2 [facility] [address] [address] May, [facility] [address] [address] 17 May, 2018 [facility] [address] [address] May, Nodular radiologic density R93.8 ; Weigh t loss, unintentional R63.4 and Pulmonary emphysema, unspecified emphysema type J43.9 [facility] [address] [address] May, Chronic pain G89.29 [facility] [address] [address] 09 May, 2018 Syncope and collapse R55 ; Chronic fatig ue R53.[address] lung screening R91.8 [facility] [address] [address] May, [facility] [address] [address] Apr, Chronic fatigue R53.82 ; Abnormal chest CT R93.8 ; Elevated erythrocyte sedimentation rate R70.0 ; Hypothyroid E03.9 and Recurrent major depressive disorder, in partial remission F33.41 [facility] [address] [address] Apr, Hypothyroid E03.9 [facility] [address] [address] Apr, Depression F32.9 [facility] [address] [address] Apr, [facility] [address] [address] March, [facility] [place] [address] [address] March, Hypothyroid E03.9 [facility] [address] [address] March, Diabetes mellitus E11.9 and Hypothyroid E03.9 [facility] [address] [address] March, Diabetes mellitus E11.9 [facility] [address] [address] March, Hypothyroid E03.9 and Elevated liver enz ymes R74.8 [facility] [address] [address] March, Type 2 diabetes mellitus with hyperglyce [...] major depressive disorder, in partial remission F33.41 [facility] [address] [address] Feb, Chronic pain G89.29 [facility] [address] [address] Feb, Type 2 diabetes mellitus with hyperglyce regina E11.65 and Skin lesion of scalp L98.9 [facility] [address] [address] Feb, [facility] [address] [address] Jan, Type 2 diabetes mellitus with hyperglyce [...] and Irritable bowel syndrome with diarrhea K58.0 [facility] [address] [address] Jan, [facility] [address] [address] Jan, Controlled substance agreement signed Z7 9.899 [facility] [address] [address] 08 Dec, 2017 Type 2 diabetes mellitus [...] treatment Z91.19 and Overweight (BMI 25.0-29.9) E66.3 [facility] [address] [address] 02 Dec, 2017 Controlled substance agreement signed Z7 9.899 [facility] [address] [address] Nov, Type 2 diabetes mellitus with hyperglyce regina E11.65 and Current non- adherence to medical treatment Z91.19 [facility] [address] [address] Nov, [facility] [address] [address] Nov, Chronic pain G89.29 [facility] [address] [address] Nov, [facility] [address] [address] Nov, Hypothyroid E03.9 [facility] [address] [address] Nov, Hypothyroid E03.9 [facility] [address] [address] Nov, Pulmonary emphysema, unspecified emphyse ma type J43.9 and Irritable bowel syndrome with diarrhea K58.0 [facility] [address] [address] Oct, [facility] [address] [address] Oct, [facility] [address] [address] Oct, [facility] [address] [address] Oct, [facility] [address] [address] Oct, Chronic pain G89.[address] [address] Oct, Diabetes mellitus E11.9 ; Depression F32 .9 ; Mixed hyperlipidemia E78.2 ; Hypotension, unspecified hypotension type I95.9 ; Pulmonary emphysema, unspecified emphysema type J43.9 and Weight loss, unintentional R63.[address] [address] Oct, Chronic pain G89.[address] [address] Sep, Chronic pain G89.[address] [address] Sep, Hypothyroid E03.9 and Diabetes mellitus E11.[address] [address] Aug, Type 2 diabetes mellitus with hyperglyce regina E11.65 ; long-term current use of insulin Z79.4 ; Essential (primary) hypertension I10 ; Hypothyroid E03.9 ; Neuropathy G62.9 ; Chronic pain G89.29 ; Mixed hyperlipidemia E78.2 and Encounter for immunization Z23 [facility] [address] [address] Aug, Chronic pain G89.[address] [address] Aug, Overactive bladder N32.81 ; Diabetes alvarez litus E11.9 and Chronic pain G89.29 [facility] [address] [address] Jul, [facility] [address] [address] Jun, [facility] [address] [address] Jun, [facility] [address] [address] Jun, Hypothyroid E03.9 [facility] [address] [address] Jun, Diabetes mellitus E11.9 ; Hypothyroid E0 3.9 ; Neuropathy G62.9 ; Chronic pain G89.29 and Neck mass R22.1 [facility] [address] [address] Apr, [facility] [address] [address] Apr, Acute cystitis without hematuria N30.00 [facility] [address] [address] March, [facility] [address] [address] March, [facility] [address] [address] March, Near syncope R55 [facility] [address] [address] Feb, [facility] [address] [address] Feb, Chronic pain G89.29 [facility] [address] [address] Feb, [facility] [address] [address] Feb, [facility] [address] [address] Jan, Chronic pain G89.29 [facility] [place] [address] [address] Jan, [facility] [place] [address] [address] 16 Jan, 2017 [facility] [place] [address] [address] 14 Jan, 2017 Diabetes mellitus E11.9 ; Hypothyroid E0 3.9 ; GERD (gastroesophageal reflux disease) K21.9 ; Insomnia G47.00 ; Functional 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 ; Neuropathy G62.9 ; Depression F32.9 ; Chronic pain G89.29 ; Irritable bowel syndrome with diarrhea K58.0 ; Overactive bladder N32.81 ; Mixed hyperlipidemia E78.2 and Bronchitis J40 [facility] [address] [address] Dec, [facility] [address] [address] Dec, [facility] [address] [address] Dec, [facility] [address] [address] Dec, [facility] [address] [address] Dec, Chronic pain G89.29 [facility] [address] [address] Dec, [facility] [address] [address] Dec, [facility] [address] [address] Dec, Type 2 diabetes mellitus with foot ulcer E11.621 [facility] [address] [address] Dec, Type 2 diabetes mellitus with foot ulcer E11.621 [facility] [address] [address] 14 Dec, 2016 HTN (hypertension) I10 ; Depression F32. 9 ; Type 2 diabetes mellitus with foot ulcer E11.621 ; Functional 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 ; Irritable bowel syndrome with diarrhea K58.0 ; Chronic pain G89.29 ; Insomnia G47.00 ; Overactive bladder N32.81 ; Mixed hyperlipidemia E78.2 ; Gastroesophageal reflux disease with esophagitis K21.0 and Acquired hypothyroidism E03.9 [facility] [address] [address] Nov, [address] [address] Oct, [address] [address] Oct, [address] [address] Oct, [address] [address] Sep, Functional 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 ; HTN (hyperte nsion) I10 ; Diabetes mellitus E11.9 ; Depression F32.9 ; Overactive bladder N32.81 ; Mixed hyperlipidemia E78.2 ; Gastroesophageal reflux disease without esophagitis K21.9 ; Chronic pain G89.29 ; Insomnia G47.00 and Acquired hypothyroidism E03.[address] [address] Sep, [address] [address] Aug, Encounter for immunization Z23 [address] [address] Aug, [address] [address] Jul, [address] [address] Jun, Type 2 diabetes mellitus without complic ations E11.9 ; HTN (hypertension) I10 ; Hypothyroid E03.9 ; Neuropathy G62.9 ; Depression F32.9 ; Chronic pain G89.29 ; GERD (gastroesophageal reflux disease) K21.9 ; Insomnia G47.00 ; Overactive bladder N32.81 ; Mixed hyperlipidemia E78.2 ; Diarrhea of infectious origin A09 and Environmental allergies Z91.09 [facility] [address] [address] Apr, [facility] [address] [address] March, Hypothyroidism, unspecified E03.9 and Mi xed hyperlipidemia E78.2 [facility] [address] [address] March, Diabetes mellitus E11.9 ; HTN (hypertens ion) I10 ; Hypothyroid E03.9 ; Depression F32.9 ; Overactive bladder N32.81 ; Other chronic pain G89.29 ; Lumbago with sciatica, unspecified side M54.40 ; Environmental allergies Z91.09 and Gastroesophageal reflux disease, esophagitis presence not specified K21.9 [facility] [address] [address] March, [address] [address] Jan, HTN (hypertension) I10 ; Hypothyroid E03 .9 ; Neuropathy G62.9 ; Diabetes mellitus E11.9 ; Chronic pain G89.29 ; GERD (gastroesophageal reflux disease) K21.9 ; Overactive bladder N32.81 and Depression F32.9 [facility] [address] [address] Dec, Ear pain, left H92.02 ; HTN (hypertensio n) I10 ; Hypothyroid E03.9 ; Neuropathy G62.9 ; Diabetes mellitus E11.9 ; Depression F32.9 ; GERD (gastroesophageal reflux disease) K21.9 ; Insomnia G47.00 and Overactive bladder N32.81 [facility] [address] [address] 14 Nov, 2015 Overactive bladder N32.81 and Chronic pa in G89.29 [facility] [address] [address] 11 Nov, 2015 Kidney failure N19 [facility] [facility] [address] [address] 08 Nov, 2015 [place] [address] [address] 08 Nov, 2015 [facility] [address] [address] Nov, Diabetes mellitus E11.9 ; Depression F32 .9 ; Chronic pain G89.29 ; GERD (gastroesophageal reflux disease) K21.9 ; Insomnia G47.00 ; HTN (hypertension) I10 ; Hypothyroid E03.9 ; COPD (chronic obstructive pulmonary disease) J44.9 ; Bladder incontinence R32 and Incontinence R32 [facility] [address] [address] Sep, Type 2 diabetes mellitus with foot ulcer E11.621 and Chromosomal abnormality, 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 [address] Sep, [address] [address] Aug, [address] [address] Aug, [address] [address] Aug, HTN (hypertension) I10 ; Encounter for i mmunization Z23 ; Hypothyroid E03.9 ; Neuropathy G62.9 ; Diabetes mellitus E11.9 ; Depression F32.9 ; Chronic pain G89.29 ; GERD (gastroesophageal reflux disease) K21.9 ; Insomnia G47.00 and COPD (chronic obstructive pulmonary disease) J44.9 [facility] [address] [address] Jun, [facility] [address] [address] Jun, [facility] [address] [address] May, Essential hypertension, benign 401.1 ; U nspecified hypothyroidism 244.9 ; Insomnia, unspecified 780.52 ; Shortness of breath 786.05 ; Depression 311 ; COPD (chronic obstructive pulmonary disease) 496 ; GERD (gastroesophageal reflux disease) 530.81 and Diabetes 1.5, 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 [facility] [address] [address] May, [facility] [address] [address] May, [facility] [address] [address] May, Shortness of breath 786.05 ; Essential h ypertension, benign 401.1 ; Diabetes mellitus 250.00 ; Hyperlipidemia 272.4 ; Hypothyroid 244.9 ; Insomnia 780.52 and Cough 786.2 [facility] [address] [address] Apr, [facility] [address] [address] March, Shortness of breath 786.05 ; Nausea with vomiting 787.01 ; Essential hypertension, benign 401.1 ; Diabetes mellitus 250.00 ; Hyperlipidemia 272.4 and Hypothyroid 244.9 [facility] [address] [address] Feb, [facility] [address] [address] Feb, [facility] [address] [address] Jan, [facility] [address] [address] Jan, [facility] [address] [id number] [place] [address] Jan, [facility] [address] [id number] [place] [address] Jan, 2014 [facility] [address] [id number] [place] [address] Jan, 2014 [facility] [address] [id number] [place] [address] Jan, 2014 [facility] [address] [id number] [place] [address] Jan, [facility] [address] [id number] [place] [address] Jan, [facility] [address] [id number] [place] [address] Jan, [facility] [address] [id number] [place] [address] Jan, 2014 [facility] [address] [id number] [place] [address] Dec, 2014 [facility] [address] [id number] [place] [address] Dec, 2014 [facility] [address] [id number] [place] [address] Dec, 2014 [facility] [address] [id number] [place] [address] Dec, 2014 [facility] [address] [id number] [place] [address] Dec, 2014 [facility] [address] [id number] [place] [address] Dec, 2014 [facility] [address] [id number] [place] [address] Dec, 2014 [facility] [address] [id number] [place] [address] Dec, 2014 [facility] [address] [id number] [place] [address] 04 Dec, 2014 [facility] [address] [id number] [place] [address] Dec, [facility] [address] [id number] [place] [address] Oct, [facility] [address] [id number] [place] [address] Oct, [facility] [address] [id number] [place] [address] Oct, [facility] [address] [id number] [place] [address] Oct, [facility] [address] [id number] [place] [address] Oct, [facility] [address] [id number] [place] [address] Oct, [facility] [address] [id number] [place] [address] Oct, [facility] [address] [id number] [place] [address] Oct, [facility] [address] [id number] [place] [address] Oct, [facility] [address] [id number] [place] [address] Oct, [facility] [address] [id number] [place] [address] Oct, [facility] [address] [id number] [place] [address] Oct, [facility] [address] [id number] [place] [address] Oct, [facility] [address] [id number] [place] [address] Oct, [facility] [address] [id number] [place] [address] Sep, [facility] [address] [id number] [place] [address] Sep, [facility] [address] [id number] [place] [address] Sep, [facility] [address] [id number] [place] [address] Sep, [facility] [address] [id number] [place] [address] Sep, [facility] [address] [id number] [place] [address] Sep, [facility] [address] [id number] [place] [address] Sep, [facility] [address] [id number] [place] [address] Sep, [facility] [address] [id number] [place] [address] Sep, [facility] [address] [id number] [place] [address] Aug, [facility] [address] [id number] [place] [address] Aug, [facility] [address] [id number] [place] [address] Aug, [facility] [address] [id number] [place] [address] Aug, [facility] [address] [id number] [place] [address] 16 Aug, 2014 [facility] [address] [id number] [place] [address] Aug, [facility] [address] [id number] [place] [address] Aug, [facility] [address] [id number] [place] [address] Aug, [facility] [address] [id number] [facility] [place] [address] Aug, [facility] [address] [id number] [facility] [place] [address] Jul, [facility] [address] [facility] [place] [id number] [place] [address] Jul, [facility] [address] [id number] [place] [address] Jul, [facility] [address] [facility] [place] [id number] [facility] [place] [address] Jul, [facility] [address] [facility] [place] [id number] [facility] [place] [address] Jul, [facility] [address] [id number] [place] [address] Jul, [facility] [address] [id number] [place] [address] Jul, [facility] [address] [id number] [place] [address] Jul, [facility] [address] [facility] [place] [id number] [facility] [place] [address] Jul, [facility] [address] [id number] [place] [address] Jul, [facility] [address] [id number] [place] [address] Jun, [facility] [facility] [address] [id number] [facility] [place] [address] Jun, [facility] [address] [facility] [place] [id number] [place] [address] Jun, [facility] [address] [id number] [place] [address] Jun, [facility] [address] [id number] [place] [address] Jun, [facility] [address] [id number] [place] [address] Jun, [facility] [address] [id number] [facility] [address] Jun, [facility] [address] [facility] [place] [id number] [place] [address] Jun, [facility] [address] [facility] [place] [id number] [place] [address] Jun, [facility] [address] [facility] [facility] [place] [id number] [place] [address] Jun, [facility] [address] [facility] [place] [id number] [place] [address] Jun, [facility] [address] [facility] [facility] [place] [id number] [place] [address] Jun, [facility] [address] [id number] [place] [address] May, [facility] [address] [id number] [place] [address] May, [facility] [address] [id number] [place] [address] May, [facility] [address] [facility] [place] [id number] [place] [address] May, [facility] [address] [id number] [place] [address] May, [facility] [address] [id number] [place] [address] May, [facility] [address] [facility] [place] [facility] [place] [id number] [place] [address] March, [facility] [address] [facility] [place] [id number] [place] [address] March, [facility] [address] [id number] [place] [address] March, [facility] [address] [facility] [facility] [place] [id number] [place] [address] March, [facility] [address] [id number] [place] [address] March, [facility] [address] [id number] [place] [address] March, [facility] [address] [id number] [place] [address] Feb, [facility] [address] [id number] [place] [address] Feb, [facility] [address] [id number] [place] [address] Feb, [facility] [address] [facility] [place] [facility] [place] [id number] [place] [address] Feb, [facility] [address] [id number] [place] [address] Jan, [facility] [address] [id number] [place] [address] Jan, [facility] [address] [id number] [place] [address] Jan, [facility] [address] [id number] [place] [address] Jan, [facility] [address] [id number] [place] [address] Jan, [facility] [address] [id number] [place] [address] Jan, [facility] [address] [id number] [place] [address] Jan, [facility] [address] [id number] [place] [address] Jan, [facility] [address] [id number] [place] [address] Jan, [facility] [address] [id number] [place] [address] Jan, [facility] [address] [id number] [place] [address] Jan, [facility] [address] [id number] [place] [address] Jan, [facility] [address] [id number] [place] [address] Dec, [facility] [address] [id number] [place] [address] Dec, [facility] [address] [id number] [place] [address] Dec, [facility] [address] [id number] [place] [address] Dec, [facility] [address] [id number] [place] [address] Dec, [facility] [address] [id number] [place] [address] Dec, [facility] [address] [id number] [place] [address] Nov, [facility] [address] [id number] [place] [address] Nov, [facility] [address] [id number] [place] [address] Oct, [facility] [address] [id number] [place] [address] Oct, [facility] [address] [id number] [place] [address] Oct, [facility] [address] [id number] [place] [address] Oct, [facility] [address] [id number] [place] [address] Oct, [facility] [address] [id number] [place] [address] Oct, [facility] [address] [id number] [place] [address] Sep, [facility] [address] [id number] [place] [address] Sep, [facility] [address] [facility] [place] [facility] [place] [id number] [place] [address] Sep, [facility] [address] [id number] [place] [address] Sep, [facility] [address] [id number] [place] [address] Aug, [facility] [address] [id number] [place] [address] Aug, [facility] [address] [id number] [place] [address] Aug, [facility] [address] [id number] [place] [address] Jul, [facility] [address] [id number] [place] [address] Jul, [facility] [address] [id number] [place] [address] Jul, [facility] [address] [id number] [place] [address] Jun, [facility] [address] [id number] [place] [address] Jun, [facility] [address] [id number] [place] [address] Jun, [facility] [address] [id number] [place] [address] Apr, [facility] [address] [id number] [place] [address] Apr, [facility] [address] [id number] [place] [address] March, [facility] [address] [id number] [place] [address] March, [facility] [address] [id number] [place] [address] March, [facility] [address] [id number] [place] [address] March, [facility] [address] [id number] [place] [address] Feb, [facility] [address] [id number] [place] [address] Jan, [facility] [address] [id number] [place] [address] 13 Dec, 2012 [facility] [address] [id number] [place] [address] 08 Dec, 2012 [facility] [address] [id number] [place] [address] Dec, [facility] [address] [id number] [place] [address] Nov, [facility] [address] [id number] [place] [address] Oct, [facility] [address] [id number] [place] [address] Oct, [facility] [address] [id number] [place] [address] Sep, [facility] [address] [id number] [place] [address] Sep, [facility] [address] [id number] [place] [address] Sep, [facility] [address] [id number] [place] [address] Sep, [facility] [address] [id number] [place] [address] Sep, [facility] [address] [id number] [place] [address] Sep, [facility] [address] [id number] [place] [address] Sep, [facility] [address] [id number] [place] [address] Aug, [facility] [address] [id number] [place] [address] 16 Aug, 2012 [facility] [address] [id number] [place] [address] 10 Aug, 2012 [facility] [address] [id number] [place] [address] 10 Aug, 2012 [facility] [address] [id number] [place] [address] 08 Aug, 2012 [facility] [address] [id number] [place] [address] 08 Aug, 2012 [facility] [address] [id number] [place] [address] Aug, [facility] [address] [id number] [place] [address] Aug, [facility] [address] [id number] [place] [address] Jul, [facility] [address] [id number] [place] [address] Jul, [facility] [address] [id number] [place] [address] Jun, [facility] [address] [id number] [place] [address] May, [facility] [address] [id number] [place] [address] Apr, [facility] [address] [id number] [place] [address] Apr, [facility] [address] [id number] [place] [address] Apr, [facility] [address] [id number] [place] [address] March, [facility] [address] [id number] [place] [address] March, [facility] [address] [id number] [place] [address] March, [facility] [address] [id number] [place] [address] March, [facility] [address] [id number] [place] [address] March, [facility] [address] [id number] [place] [address] March, [facility] [address] [id number] [place] [address] March, [facility] [address] [id number] [place] [address] Jan, [facility] [address] [id number] [place] [address] Jan, [facility] [address] [id number] [place] [address] Jan, [facility] [address] [id number] [place] [address] Jan, [facility] [address] [id number] [place] [address] Jan, [facility] [address] [id number] [place] [address] Dec[facility] [address] [id number] [place] [address] Dec, [facility] [address] [id number] [place] [address] Nov, [facility] [address] [id number] [place] [address] Nov, [facility] [address] [id number] [place] [address] Nov, [facility] [address] [id number] [place] [address] Nov, [facility] [address] [id number] [place] [address] Oct, [facility] [address] [id number] [place] [address] 06 Oct, 2011 [facility] [address] [id number] [place] [address] 14 Sep, 2011 [facility] [address] [id number] [place] [address] 10 Sep, 2011 [facility] [address] [id number] [place] [address] 10 Sep, 2011 [facility] [address] [id number] [place] [address] 11 May, 2011 [facility] [address] [id number] [place] [address] 20 Nov, 2010 [facility] [address] [id number] [place] [address] 29 Oct, 2010 [facility] [address] [id number] [place] [address] 14 Oct, 2010 [facility] [address] [id number] [place] [address] 08 Oct, 2010 [facility] [address] [id number] [place] [address] 15 Sep, 2010 [facility] [address] [id number] [place] [address] Sep, [facility] [address] [id number] [place] [address] Aug, [facility] [address] [id number] [place] [address] March, [facility] [address] [id number] [place] [address] Oct, [facility] [address] [id number] [place] [address] Oct, [facility] [address] [id number] [place] [address] Oct, [facility] [address] [id number] [place] [address] Oct, [facility] [address] [id number] [place] [address] Sep, [facility] [address] [id number] [place] [address] Sep, [facility] [address] [id number] [place] [address] Sep, [facility] [address] [id number] [place] [address] Aug, [facility] [address] [id number] [place] [address] Aug, [facility] [id number] [place] [address] Aug, [facility] [address] [id number] [place] [address] Jan, IMMUNIZATIONS No Known Immunizations SOCIAL HISTORY [...]
--- OUTSIDE RECORDS SUMMARY | 2020-06-13 16:06 | XMS REPORT ---
Author Author Jah Durant Doctor Organization [facility] Address Unknown Phone Unavailable Care Team Providers Care Corrective Therapy Aide Teacher Name Role Phone Migration, Doctor Unavailable Unavailable PROBLEMS Type Condition ICD9-CM Code [id number] Code Onset Dates Condition S tatus SNOMED Code Problem Neuropathy G62.9 Active 997513421 Problem Chronic pain G89.29 Active 8927395 1 Problem Overactive bladder N32.81 Active 2 35710724 Problem Hypothyroid E03.9 Active 98511126 Problem Irritable bowel syndrome with diarrhea K58.0 Active 303521038 Problem [facility] current use of insulin Z79.4 Active 925068387 Problem Type 2 diabetes mellitus with hyperglycemia E11.65 Active 08854565 Problem Chronic obstructive pulmonary disease, unspecified COPD ty pe J44.9 Active 87151454 Problem Gastroesophageal reflux disease with esophagitis K 21.0 Active 932678640 Problem Major depressive disorder, recurrent, in full remission F33.42 Active 16430884 Problem Mixed hyperlipidemia E78.2 Active 972898707 Problem Essential (primary) hypertension I10 Active 77892961 Problem Anxiety disorder, unspecified type F41.9 Active 794033431 Problem Gastroparesis K31.84 Active 499671 006 Problem 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 Active 673861081 ALLERGIES No Information ENCOUNTERS Encounter Location Date Diagnosis [place] [address] [address] Nov, Chronic pain G89.29 [facility] [address] [address] Oct, Chronic pain G89.29 [place] [address] [address] Sep, Chronic pain G89.29 [place] [address] [address] Sep, Type 2 diabetes mellitus with diabetic a utonomic (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 ; Irritable bowel syndrome with diarrhea K58.0 ; Essential (primary) hypertension I10 and Encounter for immunization Z23 [place] [address] [address] Aug, Chronic pain G89.29 [facility] [address] [address] Aug, [place] [address] [address] Jul, Chronic pain G89.29 [place] [address] [address] Jun, Other chronic pain G89.29 [place] [address] [address] Jun, [place] [address] [address] Jun, Chronic pain G89.29 [place] [address] [address] Jun, Neuropathy G62.9 [place] [address] [address] Jun, Encounter for Medicare annual wellness e [...] and Encounter for immunization Z23 [place] [address] [address] Jun, Irritable bowel syndrome with diarrhea K 58.0 [place] [address] [address] May, Chronic pain G89.29 [place] [address] [address] May, Type 2 diabetes mellitus with hyperglyce regina E11.65 and Neuropathy G62.9 [place] [address] [place] [id number] [place] [address] May, Chronic pain G89.29 [place] [address] [place] [id number] [place] [address] Apr, Poison maryam dermatitis L23.7 [place] [address] [address] Apr, Chronic pain G89.29 [place] [address] [address] March, Type 2 diabetes mellitus with hyperglyce regina E11.65 [place] [address] [address] March, Chronic pain G89.29 [place] [address] [address] March, [address] [place] [address] Feb, [place] [address] [address] Feb, Other chronic pain G89.29 and Chronic pa in G89.29 [place] [address] [place] [id number] [place] [address] Jan, Mixed hyperlipidemia E78.2 [place] [address] [address] Jan, Chronic pain G89.29 [place] [address] [place] [id number] [place] [address] Jan, Type 2 diabetes mellitus with hyperglyce regina E11.65 ; Mixed hyperlipidemia E78.2 ; 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 card 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 use of insulin Z79.4 ; Acquired hypothyroidism E03.9 and Essential (primary) hypertension I10 [place] [address] [place] [id number] [place] [address] Dec, Chronic pain G89.29 [place] [address] [address] 14 Nov, 2018 Chronic pain G89.29 [place] [address] [address] Nov, [facility] [address] [address] Oct, Chronic pain G89.29 [place] [address] [address] Oct, [facility] [address] [address] Sep, [place] [address] [address] Sep, Type 2 diabetes mellitus with hyperglyce regina E11.65 [place] [address] [address] Sep, Chronic pain G89.29 [place] [address] [address] Sep, [place] [address] [address] Sep, Type 2 diabetes mellitus with hyperglyce regina E11.65 ; Irritable bowel syndrome with diarrhea K58.0 ; Gastroparesis K31.84 ; 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 and Dermatitis L30.9 [place] [address] [address] Aug, Chronic pain G89.29 [place] [address] [address] Jul, Chronic pain G89.29 [place] [address] [address] Jun, Type 2 diabetes mellitus with hyperglyce regina E11.65 ; Neuropathy G62.9 ; Recurrent major depressive disorder, in partial remission F33.41 ; Chronic pain G89.29 and Hypertriglyceridemia E78.1 [place] [address] [address] Jun, Hypothyroid E03.9 [place] [address] [address] Jun, Major depressive disorder, recurrent epi sode, moderate F33.1 and Anxiety disorder, unspecified type F41.9 [place] [address] [address] Jun, [place] [address] [address] Jun, Type 2 diabetes mellitus with hyperglyce regina E11.65 ; 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 card 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 use of insulin Z79.4 ; Recurrent major depressive disorder, in partial remission F33.41 ; Hypothyroid E03.9 ; Candidal dermatitis B37.2 and Weakness generalized R53.1 [place] [address] [address] May, [place] [address] [address] May, [place] [address] [address] May, [place] [address] [address] May, Generalized abdominal pain R10.84 and Ca ndidal dermatitis B37.2 [place] [address] [address] May, [place] [address] [address] May, [place] [address] [address] May, Nodular radiologic density R93.8 ; Weigh t loss, unintentional R63.4 and Pulmonary emphysema, unspecified emphysema type J43.9 [place] [address] [address] May, Chronic pain G89.29 [place] [address] [address] 09 May, 2018 Syncope and collapse R55 ; Chronic fatig ue R53.[address] lung screening R91.8 [place] [address] [place] [id number] [place] [address] May, [facility] [address] [address] Apr, Chronic fatigue R53.82 ; Abnormal chest CT R93.8 ; Elevated erythrocyte sedimentation rate R70.0 ; Hypothyroid E03.9 and Recurrent major depressive disorder, in partial remission F33.41 [place] [address] [address] Apr, Hypothyroid E03.9 [place] [address] [address] Apr, Depression F32.9 [place] [address] [address] Apr, [place] [address] [address] March, [place] [address] [address] March, Hypothyroid E03.9 [place] [address] [address] March, Diabetes mellitus E11.9 and Hypothyroid E03.9 [place] [address] [address] March, Diabetes mellitus E11.9 [place] [address] [address] March, Hypothyroid E03.9 and Elevated liver enz ymes R74.8 [place] [address] [place] [address] [place] [address] March, Type 2 diabetes mellitus with hyperglyce rgeina E11.65 ; 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 card 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 use of insulin Z79.4 ; Pulmonary emphysema, unspecified emphysema type J43.9 ; Hypothyroid E03.9 ; Neuropathy G62.9 ; Mixed hyperlipidemia E78.2 ; Chronic pain G89.29 ; Gastroesophageal reflux disease with esophagitis K21.0 ; Irritable bowel syndrome with diarrhea K58.0 ; Overactive bladder N32.81 and Recurrent major depressive disorder, in partial remission F33.41 [place] [address] [address] Feb, Chronic pain G89.29 [place] [address] [address] Feb, Type 2 diabetes mellitus with hyperglyce regina E11.65 and Skin lesion of scalp L98.9 [place] [address] [address] Feb, [place] [address] [address] Jan, Type 2 diabetes mellitus with hyperglyce [...] bowel syndrome with diarrhea K58.0 [place] [address] [address] Jan, [place] [address] [address] Jan, Controlled substance agreement signed Z7 9.899 [place] [address] [address] Dec, Type 2 diabetes mellitus with hyperglyce [...] and Overweight (BMI 25.0-29.9) E66.3 [place] [address] [address] 02 Dec, 2017 Controlled substance agreement signed Z7 9.899 [place] [address] [address] Nov, Type 2 diabetes mellitus with hyperglyce regina E11.65 and Current non- adherence to medical treatment Z91.19 [place] [address] [address] Nov, [place] [address] [address] Nov, Chronic pain G89.29 [place] [address] [address] Nov, [place] [address] [address] Nov, Hypothyroid E03.9 [place] [address] [address] Nov, Hypothyroid E03.9 [place] [address] [address] Nov, Pulmonary emphysema, unspecified emphyse ma type J43.9 and Irritable bowel syndrome with diarrhea K58.0 [place] [address] [address] Oct, [place] [address] [address] Oct, [place] [address] [address] Oct, [place] [address] [address] Oct, [place] [address] [address] Oct, Chronic pain G89.29 [place] [address] [address] Oct, Diabetes mellitus E11.9 ; Depression F32 .9 ; Mixed hyperlipidemia E78.2 ; Hypotension, unspecified hypotension type I95.9 ; Pulmonary emphysema, unspecified emphysema type J43.9 and Weight loss, unintentional R63.[address] [address] Oct, Chronic pain G89.[address] [address] Sep, Chronic pain G89.[address] [address] Sep, Hypothyroid E03.9 and Diabetes mellitus E11.[address] [address] Aug, Type 2 diabetes mellitus with hyperglyce regina E11.65 ; 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 card 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 use of insulin Z79.4 ; Essential (primary) hypertension I10 ; Hypothyroid E03.9 ; Neuropathy G62.9 ; Chronic pain G89.29 ; Mixed hyperlipidemia E78.2 and Encounter for immunization Z23 [address] [address] Aug, Chronic pain G89.[address] [address] Aug, Overactive bladder N32.81 ; Diabetes alvarez litus E11.9 and Chronic pain G89.[address] [address] Jul, [address] [address] Jun, [address] [address] Jun, [address] [address] Jun, Hypothyroid E03.9 [facility] [address] [address] Jun, Diabetes mellitus E11.9 ; Hypothyroid E0 3.9 ; Neuropathy G62.9 ; Chronic pain G89.29 and Neck mass R22.1 [facility] [address] [address] Apr, [facility] [address] [address] Apr, Acute cystitis without hematuria N30.00 [facility] [address] [address] March, [facility] [address] [address] March, [facility] [address] [address] March, Near syncope R55 [facility] [address] [address] Feb, [facility] [address] [address] Feb, Chronic pain G89.29 [facility] [address] [address] Feb, [facility] [address] [address] Feb, [facility] [address] [address] 24 Jan, 2017 Chronic pain G89.29 [facility] [address] [address] Jan, [facility] [address] [address] 16 Jan, 2017 [facility] [address] [address] 14 Jan, 2017 Diabetes mellitus E11.9 ; Hypothyroid E0 3.9 ; GERD (gastroesophageal reflux disease) K21.9 ; Insomnia G47.00 ; Functional 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 ; Neuropathy G62.9 ; Depression F32.9 ; Chronic pain G89.29 ; Irritable bowel syndrome with diarrhea K58.0 ; Overactive bladder N32.81 ; Mixed hyperlipidemia E78.2 and Bronchitis J40 [facility] [address] [address] Dec, [facility] [address] [address] Dec, [facility] [address] [address] Dec, [facility] [address] [address] Dec, [place] [address] [address] Dec, Chronic pain G89.29 [facility] [address] [address] Dec, [place] [address] [address] Dec, [facility] [address] [address] Dec, Type 2 diabetes mellitus with foot ulcer E11.621 [place] [address] [address] 17 Dec, 2016 Type 2 diabetes mellitus with foot ulcer E11.621 [place] [address] [address] 14 Dec, 2016 HTN (hypertension) I10 ; Depression F32. 9 ; Type 2 diabetes mellitus with foot ulcer E11.621 ; Functional 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 ; Irritable bowel syndrome with diarrhea K58.0 ; Chronic pain G89.29 ; Insomnia G47.00 ; Overactive bladder N32.81 ; Mixed hyperlipidemia E78.2 ; Gastroesophageal reflux disease with esophagitis K21.0 and Acquired hypothyroidism E03.9 [place] [address] [address] Nov, [place] [address] [address] Oct, [place] [address] [address] Oct, [place] [address] [address] Oct, [place] [address] [address] Sep, Functional 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 ; HTN (hyperte nsion) I10 ; Diabetes mellitus E11.9 ; Depression F32.9 ; Overactive bladder N32.81 ; Mixed hyperlipidemia E78.2 ; Gastroesophageal reflux disease without esophagitis K21.9 ; Chronic pain G89.29 ; Insomnia G47.00 and Acquired hypothyroidism E03.9 [place] [address] [address] Sep, [place] [address] [address] Aug, Encounter for immunization Z23 [place] [address] [address] Aug, [place] [address] [address] Jul, [address] [address] Jun, Type 2 diabetes mellitus without complic ations E11.9 ; HTN (hypertension) I10 ; Hypothyroid E03.9 ; Neuropathy G62.9 ; Depression F32.9 ; Chronic pain G89.29 ; GERD (gastroesophageal reflux disease) K21.9 ; Insomnia G47.00 ; Overactive bladder N32.81 ; Mixed hyperlipidemia E78.2 ; Diarrhea of infectious origin A09 and Environmental allergies Z91.[address] [address] Apr, [place] [address] [address] March, Hypothyroidism, unspecified E03.9 and Mi xed hyperlipidemia E78.2 [place] [address] [address] March, Diabetes mellitus E11.9 ; HTN (hypertens ion) I10 ; Hypothyroid E03.9 ; Depression F32.9 ; Overactive bladder N32.81 ; Other chronic pain G89.29 ; Lumbago with sciatica, unspecified side M54.40 ; Environmental allergies Z91.09 and Gastroesophageal reflux disease, esophagitis presence not specified K21.9 [place] [address] [address] March, [place] [address] [address] Jan, HTN (hypertension) I10 ; Hypothyroid E03 .9 ; Neuropathy G62.9 ; Diabetes mellitus E11.9 ; Chronic pain G89.29 ; GERD (gastroesophageal reflux disease) K21.9 ; Overactive bladder N32.81 and Depression F32.9 [place] [address] [address] 12 Dec, 2015 Ear pain, left H92.02 ; HTN (hypertensio n) I10 ; Hypothyroid E03.9 ; Neuropathy G62.9 ; Diabetes mellitus E11.9 ; Depression F32.9 ; GERD (gastroesophageal reflux disease) K21.9 ; Insomnia G47.00 and Overactive bladder N32.81 [place] [address] [address] Nov, Overactive bladder N32.81 and Chronic pa in G89.29 [place] [address] [address] Nov, Kidney failure N19 [place] [address] [address] Nov, [place] [address] [address] Nov, [place] [address] [address] Nov, Diabetes mellitus E11.9 ; Depression F32 .9 ; Chronic pain G89.29 ; GERD (gastroesophageal reflux disease) K21.9 ; Insomnia G47.00 ; HTN (hypertension) I10 ; Hypothyroid E03.9 ; COPD (chronic obstructive pulmonary disease) J44.9 ; Bladder incontinence R32 and Incontinence R32 [place] [address] [address] Sep, Type 2 diabetes mellitus with foot ulcer E11.621 and Chromosomal abnormality, 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 [address] Sep, [address] [address] Aug, [address] [address] Aug, [address] [address] Aug, HTN (hypertension) I10 ; Encounter for i mmunization Z23 ; Hypothyroid E03.9 ; Neuropathy G62.9 ; Diabetes mellitus E11.9 ; Depression F32.9 ; Chronic pain G89.29 ; GERD (gastroesophageal reflux disease) K21.9 ; Insomnia G47.00 and COPD (chronic obstructive pulmonary disease) J44.9 [place] [address] [address] Jun, [address] [address] Jun, [address] [address] May, Essential hypertension, benign 401.1 ; U nspecified hypothyroidism 244.9 ; Insomnia, unspecified 780.52 ; Shortness of breath 786.05 ; Depression 311 ; COPD (chronic obstructive pulmonary disease) 496 ; GERD (gastroesophageal reflux disease) 530.81 and Diabetes 1.5, 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 [facility] [address] [address] May, [facility] [address] [address] May, [facility] [address] [address] May, Shortness of breath 786.05 ; Essential h ypertension, benign 401.1 ; Diabetes mellitus 250.00 ; Hyperlipidemia 272.4 ; Hypothyroid 244.9 ; Insomnia 780.52 and Cough 786.2 [facility] [address] [address] Apr, [facility] [address] [address] March, Shortness of breath 786.05 ; Nausea with vomiting 787.01 ; Essential hypertension, benign 401.1 ; Diabetes mellitus 250.00 ; Hyperlipidemia 272.4 and Hypothyroid 244.9 [facility] [address] [address] Feb, [facility] [address] [address] Feb, [facility] [address] [address] Jan, [facility] [address] [address] Jan, [facility] [address] [address] Jan, [facility] [address] [address] Jan, [facility] [address] [address] Jan, [facility] [address] [address] Jan, [facility] [address] [id number] [place] [address] Jan, [facility] [address] [id number] [place] [address] Jan, [facility] [address] [id number] [place] [address] Jan, [facility] [address] [id number] [place] [address] Jan, [facility] [address] [id number] [place] [address] Dec, [facility] [address] [id number] [place] [address] Dec, 2014 [facility] [address] [id number] [place] [address] Dec, 2014 [facility] [address] [id number] [place] [address] Dec, 2014 [facility] [address] [id number] [place] [address] Dec, 2014 [facility] [address] [id number] [place] [address] Dec, 2014 [facility] [address] [id number] [place] [address] Dec, 2014 [facility] [address] [id number] [place] [address] Dec, 2014 [facility] [address] [id number] [place] [address] Dec, 2014 [facility] [address] [id number] [place] [address] Dec, [facility] [address] [id number] [place] [address] Oct, [facility] [address] [id number] [place] [address] Oct, [facility] [address] [id number] [place] [address] Oct, [facility] [address] [id number] [place] [address] Oct, [facility] [address] [id number] [place] [address] Oct, [facility] [address] [id number] [place] [address] Oct, [facility] [address] [id number] [place] [address] Oct, [facility] [address] [id number] [place] [address] Oct, [facility] [address] [id number] [place] [address] Oct, [facility] [address] [id number] [place] [address] Oct, [facility] [address] [id number] [place] [address] Oct, [facility] [address] [id number] [place] [address] Oct, [facility] [address] [id number] [place] [address] Oct, [facility] [address] [id number] [place] [address] Oct, [facility] [address] [id number] [place] [address] Sep, [facility] [address] [id number] [place] [address] Sep, [facility] [address] [id number] [place] [address] Sep, [facility] [address] [id number] [place] [address] Sep, [facility] [address] [id number] [place] [address] Sep, [facility] [address] [id number] [place] [address] Sep, [facility] [address] [id number] [place] [address] Sep, [facility] [address] [id number] [place] [address] Sep, [facility] [address] [id number] [place] [address] Sep, [facility] [address] [id number] [place] [address] Aug, [facility] [address] [id number] [place] [address] Aug, [facility] [address] [id number] [place] [address] Aug, [facility] [address] [id number] [place] [address] Aug, [facility] [address] [id number] [place] [address] 16 Aug, 2014 [facility] [address] [id number] [place] [address] Aug, [facility] [address] [id number] [place] [address] Aug, [facility] [address] [id number] [place] [address] Aug, [facility] [address] [id number] [place] [address] Aug, [facility] [address] [id number] [place] [address] 29 Jul, 2014 [facility] [address] [id number] [place] [address] 29 Jul, 2014 [facility] [address] [id number] [place] [address] 25 Jul, 2014 [facility] [address] [id number] [place] [address] Jul, 2013 [facility] [address] [id number] [place] [address] Jul, 2013 [facility] [address] [id number] [place] [address] Jul, 2013 [facility] [address] [facility] [id number] [place] [address] Jul, 2013 [facility] [address] [id number] [place] [address] Jul, 2013 [facility] [address] [facility] [id number] [place] [address] Jul, [facility] [address] [id number] [place] [address] Jul, [facility] [address] [id number] [place] [address] Jun, [facility] [address] [id number] [place] [address] Jun, [facility] [address] [facility] [id number] [place] [address] Jun, [facility] [address] [id number] [place] [address] Jun, [facility] [address] [id number] [place] [address] Jun, [facility] [address] [id number] [place] [address] Jun, [facility] [address] [facility] [id number] [place] [address] Jun, [facility] [address] [id number] [place] [address] Jun, [facility] [address] [id number] [place] [address] Jun, [facility] [address] [id number] [place] [address] Jun, [facility] [address] [id number] [place] [address] Jun, [facility] [address] [facility] [id number] [place] [address] Jun, [facility] [address] [facility] [id number] [place] [address] May, [facility] [address] [id number] [place] [address] May, [facility] [address] [facility] [id number] [place] [address] May, [facility] [address] [facility] [id number] [place] [address] May, [facility] [address] [id number] [place] [address] May, [facility] [address] [id number] [place] [address] May, [facility] [address] [id number] [place] [address] March, [facility] [address] [facility] [id number] [place] [address] March, [facility] [address] [id number] [place] [address] March, [facility] [address] [id number] [place] [address] March, [facility] [address] [id number] [place] [address] March, [facility] [address] [facility] [id number] [place] [address] March, [facility] [address] [id number] [place] [address] Feb, [facility] [address] [facility] [id number] [place] [address] Feb, [facility] [address] [id number] [place] [address] Feb, [facility] [address] [id number] [place] [address] Feb, [facility] [address] [id number] [place] [address] Jan, [facility] [address] [id number] [place] [address] Jan, [facility] [address] [id number] [place] [address] Jan, [facility] [address] [id number] [place] [address] Jan, [facility] [address] [id number] [place] [address] Jan, [facility] [address] [id number] [place] [address] Jan, [facility] [address] [id number] [place] [address] Jan, [facility] [address] [id number] [place] [address] Jan, [facility] [address] [id number] [place] [address] Jan, [facility] [address] [id number] [place] [address] Jan, [facility] [address] [id number] [place] [address] Jan, [facility] [address] [id number] [place] [address] Jan, [facility] [address] [id number] [place] [address] Dec, [facility] [address] [id number] [place] [address] Dec, [facility] [address] [id number] [place] [address] Dec, [facility] [address] [id number] [place] [address] Dec, [facility] [address] [id number] [place] [address] Dec, [facility] [address] [id number] [place] [address] Dec, [facility] [address] [id number] [place] [address] Nov, [facility] [address] [id number] [place] [address] Nov, [facility] [address] [id number] [place] [address] Oct, [facility] [address] [id number] [place] [address] Oct, [facility] [address] [id number] [place] [address] Oct, [facility] [address] [id number] [place] [address] Oct, [facility] [address] [id number] [place] [address] Oct, [facility] [address] [id number] [place] [address] Oct, [facility] [address] [id number] [place] [address] Sep, [facility] [address] [id number] [place] [address] Sep, [facility] [address] [id number] [place] [address] Sep, [facility] [address] [id number] [place] [address] Sep, [facility] [address] [id number] [place] [address] Aug, [facility] [address] [id number] [place] [address] Aug, [facility] [address] [id number] [place] [address] 08 Aug, 2013 [facility] [address] [id number] [place] [address] 17 Jul, 2013 [facility] [address] [id number] [place] [address] 14 Jul, 2013 [facility] [address] [id number] [place] [address] Jul, [facility] [address] [id number] [place] [address] Jun, [facility] [address] [id number] [place] [address] Jun, [facility] [address] [id number] [place] [address] Jun, [facility] [address] [id number] [place] [address] Apr, [facility] [address] [id number] [place] [address] Apr, [facility] [address] [id number] [place] [address] March, [facility] [address] [id number] [place] [address] March, [facility] [address] [id number] [place] [address] March, [facility] [address] [id number] [place] [address] March, [facility] [address] [id number] [place] [address] Feb, [facility] [id number] [place] [address] Jan, [facility] [address] [id number] [place] [address] Dec, [facility] [id number] [place] [address] 08 Dec, 2012 [facility] [address] [id number] [place] [address] Dec, [facility] [address] [id number] [place] [address] Nov, [facility] [address] [id number] [place] [address] Oct, [facility] [address] [id number] [place] [address] Oct, [facility] [address] [id number] [place] [address] Sep, [facility] [address] [id number] [place] [address] Sep, [facility] [address] [id number] [place] [address] Sep, [facility] [id number] [place] [address] Sep, [facility] [address] [id number] [place] [address] Sep, [facility] [id number] [place] [address] Sep, [facility] [address] [id number] [place] [address] Sep, [facility] [address] [id number] [place] [address] Aug, [facility] [address] [id number] [place] [address] Aug, [facility] [address] [id number] [place] [address] Aug, [facility] [address] [id number] [place] [address] Aug, [facility] [address] [id number] [place] [address] Aug, [facility] [address] [id number] [place] [address] Aug, [facility] [address] [facility] [id number] [place] [address] Aug, [facility] [address] [id number] [place] [address] Aug, [facility] [address] [id number] [place] [address] Jul, [facility] [address] [id number] [place] [address] Jul, [facility] [address] [facility] [id number] [place] [address] Jun, [facility] [address] [id number] [place] [address] May, [facility] [address] [id number] [place] [address] Apr, [facility] [address] [id number] [place] [address] Apr, [facility] [address] [id number] [place] [address] Apr, [facility] [address] [id number] [place] [address] March, [facility] [address] [id number] [place] [address] March, [facility] [address] [id number] [place] [address] March, [facility] [address] [id number] [place] [address] March, [facility] [address] [id number] [place] [address] March, [facility] [address] [id number] [place] [address] March, [facility] [address] [id number] [place] [address] March, [facility] [address] [id number] [place] [address] 22 Jan, 2012 [facility] [address] [id number] [place] [address] 21 Jan, 2012 [facility] [address] [id number] [place] [address] 20 Jan, 2012 [facility] [address] [id number] [place] [address] 13 Jan, 2012 [facility] [address] [id number] [place] [address] Jan, [facility] [address] [id number] [place] [address] 08 Dec, 2011 [facility] [address] [id number] [place] [address] Dec, [facility] [address] [id number] [place] [address] Nov, [facility] [address] [id number] [place] [address] Nov, [facility] [address] [id number] [place] [address] Nov, [facility] [address] [id number] [place] [address] Nov, [facility] [address] [id number] [place] [address] Oct, [facility] [address] [id number] [place] [address] Oct, [facility] [address] [id number] [place] [address] 14 Sep, 2011 [facility] [address] [id number] [place] [address] 10 Sep, 2011 [facility] [address] [id number] [place] [address] 10 Sep, 2011 [facility] [address] [id number] [place] [address] May, [facility] [address] [id number] [place] [address] Nov, [facility] [address] [id number] [place] [address] 29 Oct, 2010 [facility] [address] [id number] [place] [address] 14 Oct, 2010 [facility] [address] [id number] [place] [address] 08 Oct, 2010 [facility] [address] [id number] [place] [address] 15 Sep, 2010 [facility] [address] [id number] [place] [address] Sep, [facility] [address] [id number] [place] [address] Aug, [facility] [address] [id number] [place] [address] March, [facility] [address] [id number] [place] [address] Oct, [facility] [address] [id number] [place] [address] Oct, [facility] [address] [id number] [place] [address] Oct, [facility] [address] [id number] [place] [address] Oct, [facility] [address] [id number] [place] [address] Sep, [facility] [address] [id number] [place] [address] Sep, [facility] [address] [id number] [place] [address] Sep, [facility] [address] [id number] [place] [address] Aug, [facility] [address] [id number] [place] [address] Aug, [facility] [address] [id number] [place] [address] Aug, [facility] [address] [id number] [place] [address] Jan, IMMUNIZATIONS No Known Immunizations SOCIAL HISTORY Never Assessed REASON FOR VISIT PLAN OF CARE VITAL SIGNS Height 69 in 2014-03-13 Weight 234.9 lbs 2014-03-13 Temperature 98.6 degrees Fahrenheit 2014-03-13 Heart Rate 78 bpm 2014-03-13 Respiratory Rate 20 2014-03-13 Blood pressure systolic 134 mmHg 2014-03-13 Blood pressure diastolic 86 mmHg 2014-03-13 MEDICATIONS Unknown Medications RESULTS No Results PROCEDURES [...]
--- OUTSIDE RECORDS SUMMARY | 2020-06-13 16:06 | XMS REPORT ---
Author Author Jah Durant Doctor Organization [facility] Address Unknown Phone Unavailable Care Team Providers Care Drapery Supervisor Name Role Phone Migration, Doctor Unavailable Unavailable PROBLEMS Type Condition ICD9-CM Code XMS55-GN Code Onset Dates Condition S tatus SNOMED Code Problem Neuropathy G62.9 Active 369225940 Problem Chronic pain G89.29 Active 6018794 1 Problem Overactive bladder N32.81 Active 2 17203076 Problem Hypothyroid E03.9 Active 63927891 Problem Irritable bowel syndrome with diarrhea K58.0 Active 050024443 Problem retirement current use of insulin Z79.4 Active 070003718 Problem Type 2 diabetes mellitus with hyperglycemia E11.65 Active 32340077 Problem Chronic obstructive pulmonary disease, unspecified COPD ty pe J44.9 Active 77691627 Problem Gastroesophageal reflux disease with esophagitis K 21.0 Active 127324312 Problem Major depressive disorder, recurrent, in full remission F33.42 Active 03030768 Problem Mixed hyperlipidemia E78.2 Active 899802187 Problem Essential (primary) hypertension I10 Active 71709730 Problem Anxiety disorder, unspecified type F41.9 Active 828618547 Problem Gastroparesis K31.84 Active 184061 006 Problem 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 Active [id number] ALLERGIES No Information ENCOUNTERS Encounter Location Date Diagnosis [place] [id number] [place] [address] Dec, [facility] [address] [address] Dec, [facility] [address] [address] Dec, [facility] [address] [address] Nov, Chronic pain G89.29 [place] [address] [address] Oct, Chronic pain G89.29 [place] [address] [address] Sep, Chronic pain G89.29 [place] [address] [address] Sep, Type 2 diabetes mellitus with diabetic a utonomic (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 ; Irritable bowel syndrome with diarrhea K58.0 ; Essential (primary) hypertension I10 and Encounter for immunization Z23 [place] [address] [address] Aug, Chronic pain G89.29 [place] [address] [address] Aug, [place] [address] [address] Jul, Chronic pain G89.29 [place] [address] [address] Jun, Other chronic pain G89.29 [place] [address] [address] Jun, [place] [address] [address] Jun, Chronic pain G89.29 [place] [address] [address] Jun, Neuropathy G62.9 [place] [address] [address] Jun, Encounter for Medicare annual wellness e xam Z00.00 ; Type 2 diabetes mellitus with hyperglycemia E11.65 ; Mixed hyperlipidemia E78.2 ; Hypothyroid E03.9 ; Gastroesophageal reflux disease with esophagitis K21.0 ; Essential (primary) hypertension I10 ; Major depressive disorder, recurrent, in full remission F33.42 ; Chronic obstructive pulmonary disease, unspecified COPD type J44.9 ; Neuropathy G62.9 and Encounter for immunization Z23 [place] [address] [address] Jun, Irritable bowel syndrome with diarrhea K 58.0 [place] [address] [address] May, Chronic pain G89.29 [place] [address] [address] May, Type 2 diabetes mellitus with hyperglyce regina E11.65 and Neuropathy G62.9 [place] [address] [address] May, Chronic pain G89.29 [place] [address] [address] Apr, Poison maryam dermatitis L23.7 [place] [address] [address] Apr, Chronic pain G89.29 [place] [address] [address] March, Type 2 diabetes mellitus with hyperglyce regina E11.65 [place] [address] [address] March, Chronic pain G89.29 [place] [address] [address] March, [address] [place] [address] Feb, [place] [address] [address] Feb, Other chronic pain G89.29 and Chronic pa in G89.29 [place] [address] [address] Jan, Mixed hyperlipidemia E78.2 [place] [address] [address] Jan, Chronic pain G89.29 [place] [address] [address] Jan, Type 2 diabetes mellitus with hyperglyce regina E11.65 ; Mixed hyperlipidemia E78.2 ; retirement current use of insulin Z79.4 ; Acquired hypothyroidism E03.9 and Essential (primary) hypertension I10 [place] [address] [address] Dec, Chronic pain G89.29 [place] [address] [address] 14 Nov, 2018 Chronic pain G89.29 [place] [address] [address] Nov, [place] [address] [address] Oct, Chronic pain G89.29 [place] [address] [address] Oct, [place] [address] [address] Sep, [place] [address] [address] Sep, Type 2 diabetes mellitus with hyperglyce regina E11.[address] [address] Sep, Chronic pain G89.29 [place] [address] [address] Sep, [address] [address] Sep, Type 2 diabetes mellitus with hyperglyce regina E11.65 ; Irritable bowel syndrome with diarrhea K58.0 ; Gastroparesis K31.84 ; 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 and Dermatitis L30.9 [place] [address] [address] Aug, Chronic pain G89.29 [place] [address] [address] Jul, Chronic pain G89.29 [place] [address] [address] Jun, Type 2 diabetes mellitus with hyperglyce regina E11.65 ; Neuropathy G62.9 ; Recurrent major depressive disorder, in partial remission F33.41 ; Chronic pain G89.29 and Hypertriglyceridemia E78.1 [place] [address] [address] Jun, Hypothyroid E03.9 [place] [address] [address] Jun, Major depressive disorder, recurrent epi sode, moderate F33.1 and Anxiety disorder, unspecified type F41.9 [place] [address] [address] Jun, [place] [address] [address] Jun, Type 2 diabetes mellitus with hyperglyce regina E11.65 ; 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 ; Recurrent major depressive disorder, in partial remission F33.41 ; Hypothyroid E03.9 ; Candidal dermatitis B37.2 and Weakness generalized R53.1 [place] [address] [address] May, [place] [address] [address] May, [place] [address] [address] May, [place] [address] [address] May, Generalized abdominal pain R10.84 and Ca ndidal dermatitis B37.2 [place] [address] [address] May, [place] [address] [address] May, [place] [address] [address] May, Nodular radiologic density R93.8 ; Weigh t loss, unintentional R63.4 and Pulmonary emphysema, unspecified emphysema type J43.9 [place] [address] [address] May, Chronic pain G89.29 [place] [address] [address] 09 May, 2018 Syncope and collapse R55 ; Chronic fatig ue R53.[address] lung screening R91.8 [place] [address] [address] May, [place] [address] [address] Apr, Chronic fatigue R53.82 ; Abnormal chest CT R93.8 ; Elevated erythrocyte sedimentation rate R70.0 ; Hypothyroid E03.9 and Recurrent major depressive disorder, in partial remission F33.41 [place] [address] [address] Apr, Hypothyroid E03.9 [place] [address] [address] Apr, Depression F32.9 [place] [address] [address] Apr, [place] [address] [address] March, [place] [address] [address] March, Hypothyroid E03.9 [place] [address] [address] March, Diabetes mellitus E11.9 and Hypothyroid E03.9 [place] [address] [address] March, Diabetes mellitus E11.9 [place] [address] [address] March, Hypothyroid E03.9 and Elevated liver enz ymes R74.8 [place] [address] [address] March, Type 2 diabetes mellitus with hyperglyce [...] disorder, in partial remission F33.41 [place] [address] [address] Feb, Chronic pain G89.29 [place] [address] [address] Feb, Type 2 diabetes mellitus with hyperglyce regina E11.65 and Skin lesion of scalp L98.9 [place] [address] [address] Feb, [place] [address] [address] Jan, Type 2 diabetes mellitus with hyperglyce regina E11.65 ; 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.] treatment Z91.19 and Overweight (BMI 25.0-29.9) E66.3 [place] [address] [address] 02 Dec, 2017 Controlled substance agreement signed Z7 9.899 [place] [address] [address] Nov, Type 2 diabetes mellitus with hyperglyce regina E11.65 and Current non- adherence to medical treatment Z91.19 [place] [address] [address] Nov, [place] [address] [address] Nov, Chronic pain G89.29 [place] [address] [address] Nov, [place] [address] [address] Nov, Hypothyroid E03.9 [place] [address] [address] Nov, Hypothyroid E03.9 [place] [address] [address] Nov, Pulmonary emphysema, unspecified emphyse ma type J43.9 and Irritable bowel syndrome with diarrhea K58.0 [place] [address] [address] Oct, [place] [address] [address] Oct, [place] [address] [address] Oct, [place] [address] [address] Oct, [place] [address] [address] Oct, Chronic pain G89.[address] [address] Oct, Diabetes mellitus E11.9 ; Depression F32 .9 ; Mixed hyperlipidemia E78.2 ; Hypotension, unspecified hypotension type I95.9 ; Pulmonary emphysema, unspecified emphysema type J43.9 and Weight loss, unintentional R63.[address] [address] Oct, Chronic pain G89.[address] [address] Sep, Chronic pain G89.[address] [address] Sep, Hypothyroid E03.9 and Diabetes mellitus E11.[address] [address] Aug, Type 2 diabetes mellitus with hyperglyce regina E11.65 ; 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 ; Essential (primary) hypertension I10 ; Hypothyroid E03.9 ; Neuropathy G62.9 ; Chronic pain G89.29 ; Mixed hyperlipidemia E78.2 and Encounter for immunization Z23 [address] [address] Aug, Chronic pain G89.[address] [address] Aug, Overactive bladder N32.81 ; Diabetes alvarez litus E11.9 and Chronic pain G89.[address] [address] Jul, [facility] [address] [address] Jun, [facility] [address] [address] Jun, [facility] [address] [address] Jun, Hypothyroid E03.9 [facility] [address] [address] Jun, Diabetes mellitus E11.9 ; Hypothyroid E0 3.9 ; Neuropathy G62.9 ; Chronic pain G89.29 and Neck mass R22.1 [facility] [address] [address] Apr, [facility] [address] [address] Apr, Acute cystitis without hematuria N30.00 [facility] [address] [address] March, [facility] [address] [address] March, [facility] [address] [address] March, Near syncope R55 [facility] [address] [address] Feb, [facility] [address] [address] Feb, Chronic pain G89.29 [facility] [address] [address] Feb, [facility] [address] [address] Feb, [facility] [address] [address] Jan, Chronic pain G89.29 [facility] [address] [address] Jan, [facility] [address] [address] Jan, [facility] [address] [address] 14 Jan, 2017 Diabetes mellitus E11.9 ; Hypothyroid E0 3.9 ; GERD (gastroesophageal reflux disease) K21.9 ; Insomnia G47.00 ; Functional 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 ; Neuropathy G62.9 ; Depression F32.9 ; Chronic pain G89.29 ; Irritable bowel syndrome with diarrhea K58.0 ; Overactive bladder N32.81 ; Mixed hyperlipidemia E78.2 and Bronchitis J40 [place] [address] [address] Dec, [place] [address] [address] Dec, [place] [address] [address] 24 Dec, 2016 [place] [address] [address] Dec, [place] [address] [address] 23 Dec, 2016 Chronic pain G89.29 [place] [address] [address] 23 Dec, 2016 [facility] [address] [address] 20 Dec, 2016 [facility] [address] [address] 17 Dec, 2016 Type 2 diabetes mellitus with foot ulcer E11.621 [facility] [address] [address] 17 Dec, 2016 Type 2 diabetes mellitus with foot ulcer E11.621 [place] [address] [address] Dec, HTN (hypertension) I10 ; Depression F32. 9 ; Type 2 diabetes mellitus with foot ulcer E11.621 ; Functional 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 ; Irritable bowel syndrome with diarrhea K58.0 ; Chronic pain G89.29 ; Insomnia G47.00 ; Overactive bladder N32.81 ; Mixed hyperlipidemia E78.2 ; Gastroesophageal reflux disease with esophagitis K21.0 and Acquired hypothyroidism E03.9 [place] [address] [address] Nov, [place] [address] [address] Oct, [place] [address] [address] Oct, [place] [address] [address] Oct, [place] [address] [address] Sep, Functional 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 ; HTN (hyperte nsion) I10 ; Diabetes mellitus E11.9 ; Depression F32.9 ; Overactive bladder N32.81 ; Mixed hyperlipidemia E78.2 ; Gastroesophageal reflux disease without esophagitis K21.9 ; Chronic pain G89.29 ; Insomnia G47.00 and Acquired hypothyroidism E03.9 [place] [address] [address] Sep, [place] [address] [address] Aug, Encounter for immunization Z23 [place] [address] [address] Aug, [place] [address] [address] Jul, [place] [address] [address] Jun, Type 2 diabetes mellitus without complic ations E11.9 ; HTN (hypertension) I10 ; Hypothyroid E03.9 ; Neuropathy G62.9 ; Depression F32.9 ; Chronic pain G89.29 ; GERD (gastroesophageal reflux disease) K21.9 ; Insomnia G47.00 ; Overactive bladder N32.81 ; Mixed hyperlipidemia E78.2 ; Diarrhea of infectious origin A09 and Environmental allergies Z91.09 [place] [address] [address] Apr, [place] [address] [address] March, Hypothyroidism, unspecified E03.9 and Mi xed hyperlipidemia E78.[address] [address] March, Diabetes mellitus E11.9 ; HTN (hypertens ion) I10 ; Hypothyroid E03.9 ; Depression F32.9 ; Overactive bladder N32.81 ; Other chronic pain G89.29 ; Lumbago with sciatica, unspecified side M54.40 ; Environmental allergies Z91.09 and Gastroesophageal reflux disease, esophagitis presence not specified K21.9 [place] [address] [address] March, [address] [address] Jan, HTN (hypertension) I10 ; Hypothyroid E03 .9 ; Neuropathy G62.9 ; Diabetes mellitus E11.9 ; Chronic pain G89.29 ; GERD (gastroesophageal reflux disease) K21.9 ; Overactive bladder N32.81 and Depression F32.[address] [address] Dec, Ear pain, left H92.02 ; HTN (hypertensio n) I10 ; Hypothyroid E03.9 ; Neuropathy G62.9 ; Diabetes mellitus E11.9 ; Depression F32.9 ; GERD (gastroesophageal reflux disease) K21.9 ; Insomnia G47.00 and Overactive bladder N32.[address] [address] Nov, Overactive bladder N32.81 and Chronic pa in G89.29 [place] [address] [address] 11 Nov, 2015 Kidney failure N19 [place] [address] [address] Nov, [place] [address] [address] Nov, [address] [address] Nov, Diabetes mellitus E11.9 ; Depression F32 .9 ; Chronic pain G89.29 ; GERD (gastroesophageal reflux disease) K21.9 ; Insomnia G47.00 ; HTN (hypertension) I10 ; Hypothyroid E03.9 ; COPD (chronic obstructive pulmonary disease) J44.9 ; Bladder incontinence R32 and Incontinence R32 [address] [address] Sep, Type 2 diabetes mellitus with foot ulcer E11.621 and Chromosomal abnormality, 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 [address] Sep, [address] [address] Aug, [address] [address] Aug, [address] [address] Aug, HTN (hypertension) I10 ; Encounter for i mmunization Z23 ; Hypothyroid E03.9 ; Neuropathy G62.9 ; Diabetes mellitus E11.9 ; Depression F32.9 ; Chronic pain G89.29 ; GERD (gastroesophageal reflux disease) K21.9 ; Insomnia G47.00 and COPD (chronic obstructive pulmonary disease) J44.9 [place] [address] [address] Jun, [address] [address] Jun, [facility] [address] [address] May, Essential hypertension, benign 401.1 ; U nspecified hypothyroidism 244.9 ; Insomnia, unspecified 780.52 ; Shortness of breath 786.05 ; Depression 311 ; COPD (chronic obstructive pulmonary disease) 496 ; GERD (gastroesophageal reflux disease) 530.81 and Diabetes 1.5, 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 [place] [address] [address] May, [place] [address] [address] May, [place] [address] [address] May, Shortness of breath 786.05 ; Essential h ypertension, benign 401.1 ; Diabetes mellitus 250.00 ; Hyperlipidemia 272.4 ; Hypothyroid 244.9 ; Insomnia 780.52 and Cough 786.2 [place] [address] [address] Apr, [place] [address] [address] March, Shortness of breath 786.05 ; Nausea with vomiting 787.01 ; Essential hypertension, benign 401.1 ; Diabetes mellitus 250.00 ; Hyperlipidemia 272.4 and Hypothyroid 244.9 [place] [address] [address] Feb, [facility] [address] [address] Feb, [place] [address] [address] Jan, [facility] [address] [address] Jan, [place] [address] [address] Jan, [facility] [address] [id number] [place] [address] Jan, [facility] [address] [id number] [place] [address] Jan, [facility] [address] [id number] [place] [address] Jan, [facility] [address] [id number] [place] [address] Jan, [facility] [address] [id number] [place] [address] Jan, [facility] [address] [id number] [place] [address] Jan, [facility] [address] [id number] [place] [address] Jan, [facility] [address] [id number] [place] [address] Dec, 2014 [facility] [address] [id number] [place] [address] Dec, 2014 [facility] [address] [id number] [place] [address] Dec, 2014 [facility] [address] [id number] [place] [address] Dec, 2014 [facility] [address] [id number] [place] [address] Dec, 2014 [facility] [address] [id number] [place] [address] Dec, 2014 [facility] [address] [id number] [place] [address] Dec, 2014 [facility] [address] [id number] [place] [address] Dec, 2014 [facility] [address] [id number] [place] [address] Dec, 2014 [facility] [address] [id number] [place] [address] Dec, [facility] [address] [id number] [place] [address] Oct, [facility] [address] [id number] [place] [address] Oct, [facility] [address] [id number] [place] [address] Oct, [facility] [address] [id number] [place] [address] Oct, [facility] [address] [id number] [place] [address] Oct, [facility] [address] [id number] [place] [address] Oct, [facility] [address] [id number] [place] [address] Oct, [facility] [address] [id number] [place] [address] Oct, [facility] [address] [id number] [place] [address] Oct, [facility] [address] [id number] [place] [address] Oct, [facility] [address] [id number] [place] [address] Oct, [facility] [address] [id number] [place] [address] Oct, [facility] [address] [id number] [place] [address] Oct, [facility] [address] [id number] [place] [address] Oct, [facility] [address] [id number] [place] [address] Sep, [facility] [address] [id number] [place] [address] Sep, [facility] [address] [id number] [place] [address] Sep, [facility] [address] [id number] [place] [address] Sep, [facility] [address] [id number] [place] [address] Sep, [facility] [address] [id number] [place] [address] Sep, [facility] [address] [id number] [place] [address] Sep, [facility] [address] [id number] [place] [address] Sep, [facility] [address] [id number] [place] [address] Sep, [facility] [address] [id number] [place] [address] Aug, [facility] [address] [id number] [place] [address] Aug, [facility] [address] [id number] [place] [address] Aug, [facility] [address] [id number] [place] [address] Aug, [facility] [address] [id number] [place] [address] 16 Aug, 2014 [facility] [address] [id number] [place] [address] Aug, [facility] [address] [id number] [place] [address] Aug, [facility] [id number] [place] [address] Aug, [facility] [address] [id number] [place] [address] Aug, [facility] [address] [id number] [place] [address] Jul, 2013 [facility] [id number] [place] [address] Jul, 2013 [facility] [facility] [address] [facility] [id number] [place] [address] Jul, 2013 [facility] [address] [facility] [id number] [place] [address] Jul, 2013 [facility] [place] [facility] [address] [id number] [place] [address] Jul, 2013 [facility] [place] [facility] [address] [facility] [id number] [place] [address] Jul, 2013 [facility] [place] [facility] [address] [id number] [place] [address] Jul, 2013 [facility] [facility] [address] [facility] [id number] [place] [address] Jul, 2013 [facility] [address] [id number] [place] [address] Jul, [facility] [facility] [address] [facility] [id number] [place] [address] Jul, [facility] [facility] [address] [id number] [place] [address] Jun, [facility] [address] [facility] [id number] [place] [address] Jun, [facility] [facility] [address] [id number] [place] [address] Jun, [facility] [address] [facility] [id number] [place] [address] Jun, [facility] [address] [id number] [place] [address] Jun, [facility] [address] [facility] [id number] [place] [address] Jun, [facility] [facility] [address] [facility] [id number] [place] [address] Jun, [facility] [facility] [address] [facility] [id number] [place] [address] Jun, [facility] [address] [id number] [place] [address] Jun, [facility] [address] [facility] [id number] [place] [address] Jun, [facility] [address] [id number] [place] [address] Jun, [facility] [address] [facility] [id number] [place] [address] Jun, [facility] [address] [facility] [id number] [place] [address] May, [facility] [address] [id number] [place] [address] May, [facility] [address] [id number] [place] [address] May, [facility] [address] [id number] [place] [address] May, [facility] [address] [facility] [id number] [place] [address] May, [facility] [address] [id number] [place] [address] May, [facility] [address] [id number] [place] [address] March, [facility] [address] [id number] [place] [address] March, [facility] [address] [id number] [place] [address] March, [facility] [address] [id number] [place] [address] March, [facility] [address] [id number] [place] [address] March, [facility] [address] [id number] [place] [address] March, [facility] [address] [id number] [place] [address] Feb, [facility] [address] [id number] [place] [address] Feb, [facility] [address] [id number] [place] [address] Feb, [facility] [address] [id number] [place] [address] Feb, [facility] [address] [id number] [place] [address] Jan, [facility] [address] [id number] [place] [address] Jan, [facility] [address] [id number] [place] [address] Jan, [facility] [address] [id number] [place] [address] Jan, [facility] [address] [id number] [place] [address] Jan, [facility] [address] [id number] [place] [address] Jan, [facility] [address] [id number] [place] [address] Jan, [facility] [address] [id number] [place] [address] Jan, [facility] [address] [id number] [place] [address] Jan, [facility] [address] [id number] [place] [address] Jan, [facility] [address] [id number] [place] [address] Jan, [facility] [address] [id number] [place] [address] 05 Jan, 2014 [facility] [address] [id number] [place] [address] Dec, [facility] [address] [id number] [place] [address] Dec, [facility] [address] [id number] [place] [address] Dec, [facility] [address] [id number] [place] [address] Dec, [facility] [address] [id number] [place] [address] Dec, [facility] [address] [id number] [place] [address] Dec, [facility] [address] [id number] [place] [address] Nov, [facility] [address] [id number] [place] [address] Nov, [facility] [address] [id number] [place] [address] Oct, [facility] [address] [id number] [place] [address] Oct, [facility] [address] [id number] [place] [address] Oct, [facility] [address] [id number] [place] [address] Oct, [facility] [address] [id number] [place] [address] Oct, [facility] [address] [id number] [place] [address] Oct, [facility] [address] [id number] [place] [address] Sep, [facility] [address] [id number] [place] [address] Sep, [facility] [address] [id number] [place] [address] Sep, [facility] [address] [id number] [place] [address] Sep, [facility] [address] [facility] [id number] [place] [address] Aug, [facility] [address] [id number] [place] [address] Aug, [facility] [address] [id number] [place] [address] Aug, [facility] [address] [id number] [place] [address] Jul, [facility] [address] [id number] [place] [address] Jul, [facility] [address] [id number] [place] [address] Jul, [facility] [address] [id number] [place] [address] Jun, [facility] [address] [id number] [place] [address] Jun, [facility] [address] [id number] [place] [address] Jun, [facility] [address] [id number] [place] [address] Apr, [facility] [address] [id number] [place] [address] Apr, [facility] [address] [id number] [place] [address] March, [facility] [address] [id number] [place] [address] March, [facility] [address] [id number] [place] [address] March, [facility] [address] [id number] [place] [address] March, [facility] [address] [id number] [place] [address] Feb, [facility] [address] [id number] [place] [address] Jan, [facility] [address] [id number] [place] [address] Dec, [facility] [address] [id number] [place] [address] 08 Dec, 2012 [facility] [address] [id number] [place] [address] Dec, [facility] [address] [id number] [place] [address] Nov, [facility] [address] [id number] [place] [address] Oct, [facility] [address] [id number] [place] [address] Oct, [facility] [address] [id number] [place] [address] Sep, [facility] [address] [id number] [place] [address] Sep, [facility] [address] [id number] [place] [address] Sep, [facility] [address] [id number] [place] [address] Sep, [facility] [address] [id number] [place] [address] Sep, [facility] [address] [id number] [place] [address] Sep, [facility] [address] [id number] [place] [address] Sep, [facility] [address] [id number] [place] [address] Aug, [facility] [address] [id number] [place] [address] Aug, [facility] [address] [id number] [place] [address] Aug, [facility] [address] [id number] [place] [address] Aug, [facility] [address] [id number] [place] [address] Aug, [facility] [address] [id number] [place] [address] Aug, [facility] [address] [id number] [place] [address] Aug, [facility] [address] [id number] [place] [address] Aug, [facility] [address] [id number] [place] [address] Jul, [facility] [address] [id number] [place] [address] Jul, [facility] [address] [id number] [place] [address] Jun, [facility] [address] [id number] [place] [address] May, [facility] [address] [id number] [place] [address] Apr, [facility] [address] [id number] [place] [address] Apr, [facility] [address] [id number] [place] [address] Apr, [facility] [address] [id number] [place] [address] March, [facility] [address] [id number] [place] [address] March, [facility] [address] [id number] [place] [address] March, [facility] [address] [id number] [place] [address] March, [facility] [address] [id number] [place] [address] March, [facility] [address] [id number] [place] [address] March, [facility] [address] [id number] [place] [address] March, [facility] [address] [id number] [place] [address] Jan, [facility] [address] [id number] [place] [address] Jan, [facility] [address] [id number] [place] [address] Jan, [facility] [address] [id number] [place] [address] Jan, [facility] [address] [id number] [place] [address] Jan, [facility] [address] [id number] [place] [address] Dec, [facility] [address] [id number] [place] [address] Dec, [facility] [address] [id number] [place] [address] Nov, [facility] [address] [id number] [place] [address] Nov, [facility] [address] [id number] [place] [address] Nov, [facility] [facility] [address] [id number] [place] [address] Nov, [facility] [address] [id number] [place] [address] Oct, [facility] [address] [id number] [place] [address] Oct, [facility] [address] [id number] [place] [address] 14 Sep, 2011 [facility] [address] [id number] [place] [address] 10 Sep, 2011 [facility] [address] [id number] [place] [address] 10 Sep, 2011 [facility] [address] [id number] [place] [address] 11 May, 2011 [facility] [address] [id number] [place] [address] 20 Nov, 2010 [facility] [facility] [address] [id number] [place] [address] 29 Oct, 2010 [facility] [address] [id number] [place] [address] 14 Oct, 2010 [facility] [address] [id number] [place] [address] 08 Oct, 2010 [facility] [address] [id number] [place] [address] 15 Sep, 2010 [facility] [facility] [address] [id number] [place] [address] Sep, [facility] [facility] [address] [id number] [place] [address] Aug, [facility] [address] [id number] [place] [address] March, [facility] [address] [id number] [place] [address] 17 Oct, 2009 [facility] [address] [id number] [place] [address] 17 Oct, 2009 [facility] [address] [id number] [place] [address] Oct, [facility] [address] [id number] [place] [address] Oct, [facility] [address] [id number] [place] [address] Sep, [facility] [address] [id number] [place] [address] Sep, [facility] [address] [id number] [place] [address] Sep, [facility] [address] [id number] [place] [address] Aug, [facility] [address] [id number] [place] [address] Aug, [facility] [address] [id number] [place] [address] Aug, [facility] [address] [id number] [place] [address] Jan, IMMUNIZATIONS No Known Immunizations SOCIAL HISTORY [...]
--- OUTSIDE RECORDS SUMMARY | 2020-06-13 16:06 | XMS REPORT ---
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 Name Role Phone Migration, Doctor Unavailable Unavailable PROBLEMS Type Condition ICD9-CM Code BFX11-FM Code Onset Dates Condition S tatus SNOMED Code Problem Neuropathy G62.9 Active 722619334 Problem Chronic pain G89.29 Active 9240494 1 Problem Overactive bladder N32.81 Active 2 27693501 Problem Hypothyroid E03.9 Active 83426670 Problem Irritable bowel syndrome with diarrhea K58.0 Active 694245284 Problem MCC current use of insulin Z79.4 Active 836507503 Problem Type 2 diabetes mellitus with hyperglycemia E11.65 Active 73287368 Problem Chronic obstructive pulmonary disease, unspecified COPD ty pe J44.9 Active 44098295 Problem Gastroesophageal reflux disease with esophagitis K 21.0 Active 653101913 Problem Major depressive disorder, recurrent, in full remission F33.42 Active 91048001 Problem Mixed hyperlipidemia E78.2 Active 572635002 Problem Essential (primary) hypertension I10 Active 44328120 Problem Anxiety disorder, unspecified type F41.9 Active 023850123 Problem Gastroparesis K31.84 Active 998345 006 Problem 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 Active [id number] ALLERGIES No Information ENCOUNTERS Encounter Location Date Diagnosis [facility] [id number] [place] [address] Dec, [facility] [id number] [place] [address] Nov, Chronic pain G89.29 [facility] [address] [address] Oct, Chronic pain G89.29 [facility] [id number] [place] [address] Sep, Chronic pain G89.29 [facility] [address] [address] Sep, Type 2 diabetes mellitus with diabetic a utonomic (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 ; Irritable bowel syndrome with diarrhea K58.0 ; Essential (primary) hypertension I10 and Encounter for immunization Z23 [facility] [address] [address] Aug, Chronic pain G89.29 [facility] [address] [address] Aug, [facility] [address] [address] Jul, Chronic pain G89.29 [facility] [address] [address] Jun, Other chronic pain G89.29 [facility] [address] [address] Jun, [facility] [address] [address] Jun, Chronic pain G89.29 [facility] [address] [address] Jun, Neuropathy G62.9 [facility] [address] [address] Jun, Encounter for Medicare annual wellness e xam Z00.00 ; Type 2 diabetes mellitus with hyperglycemia E11.65 ; Mixed hyperlipidemia E78.2 ; Hypothyroid E03.9 ; Gastroesophageal reflux disease with esophagitis K21.0 ; Essential (primary) hypertension I10 ; Major depressive disorder, recurrent, in full remission F33.42 ; Chronic obstructive pulmonary disease, unspecified COPD type J44.9 ; Neuropathy G62.9 and Encounter for immunization Z23 [facility] [address] [address] Jun, Irritable bowel syndrome with diarrhea K 58.0 [facility] [address] [address] May, Chronic pain G89.29 [facility] [id number] [place] [address] May, Type 2 diabetes mellitus with hyperglyce regina E11.65 and Neuropathy G62.9 [facility] [address] [address] May, Chronic pain G89.29 [facility] [address] [address] Apr, Poison maryam dermatitis L23.7 [facility] [address] [address] Apr, Chronic pain G89.29 [facility] [address] [address] March, Type 2 diabetes mellitus with hyperglyce regina E11.65 [facility] [address] [address] March, Chronic pain G89.[address] [address] March, [address] [place] [address] Feb, [address] [address] Feb, Other chronic pain G89.29 and Chronic pa in G89.[address] [address] Jan, Mixed hyperlipidemia E78.[address] [address] Jan, Chronic pain G89.[address] [address] Jan, Type 2 diabetes mellitus with hyperglyce regina E11.65 ; Mixed hyperlipidemia E78.2 ; MCC current use of insulin Z79.4 ; Acquired hypothyroidism E03.9 and Essential (primary) hypertension I10 [facility] [address] [address] Dec, Chronic pain G89.29 [facility] [place] [address] [address] Nov, Chronic pain G89.29 [facility] [place] [address] [address] Nov, [facility] [place] [address] [address] Oct, Chronic pain G89.29 [facility] [place] [address] [address] Oct, [facility] [place] [address] [address] Sep, [facility] [place] [address] [address] Sep, Type 2 diabetes mellitus with hyperglyce regina E11.65 [facility] [address] [address] Sep, Chronic pain G89.29 [facility] [place] [address] [address] Sep, [facility] [place] [address] [address] Sep, Type 2 diabetes mellitus with hyperglyce regina E11.65 ; Irritable bowel syndrome with diarrhea K58.0 ; Gastroparesis K31.84 ; 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 and Dermatitis L30.9 [facility], [place] [id number] [place] [address] Aug, Chronic pain G89.29 [facility] [place] [address] [address] Jul, Chronic pain G89.29 [facility] [place] [address] [address] Jun, Type 2 diabetes mellitus with hyperglyce regina E11.65 ; Neuropathy G62.9 ; Recurrent major depressive disorder, in partial remission F33.41 ; Chronic pain G89.29 and Hypertriglyceridemia E78.1 [facility] [address] [address] Jun, Hypothyroid E03.9 [facility] [address] [address] 16 Jun, 2018 Major depressive disorder, recurrent epi sode, moderate F33.1 and Anxiety disorder, unspecified type F41.9 [facility] [address] [address] Jun, [facility] [address] [address] Jun, Type 2 diabetes mellitus with hyperglyce regina E11.65 ; 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 ; Recurrent major depressive disorder, in partial remission F33.41 ; Hypothyroid E03.9 ; Candidal dermatitis B37.2 and Weakness generalized R53.1 [facility] [address] [address] May, [facility] [address] [address] May, [facility] [address] [address] May, [facility] [address] [address] May, Generalized abdominal pain R10.84 and Ca ndidal dermatitis B37.2 [facility] [address] [address] May, [facility] [address] [address] May, [facility] [address] [address] May, Nodular radiologic density R93.8 ; Weigh t loss, unintentional R63.4 and Pulmonary emphysema, unspecified emphysema type J43.9 [facility] [address] [address] 10 May, 2018 Chronic pain G89.29 [facility], [place] [address] [address] 09 May, 2018 Syncope and collapse R55 ; Chronic fatig ue R53.[address] lung screening R91.8 [facility] [place] [address] [address] May, [facility] [address] [address] Apr, Chronic fatigue R53.82 ; Abnormal chest CT R93.8 ; Elevated erythrocyte sedimentation rate R70.0 ; Hypothyroid E03.9 and Recurrent major depressive disorder, in partial remission F33.41 [facility] [address] [address] Apr, Hypothyroid E03.9 [facility] [address] [address] Apr, Depression F32.9 [facility] [address] [address] Apr, [facility] [address] [address] March, [facility] [address] [address] March, Hypothyroid E03.9 [facility] [address] [address] March, Diabetes mellitus E11.9 and Hypothyroid E03.9 [facility] [address] [address] March, Diabetes mellitus E11.9 [facility] [address] [address] March, Hypothyroid E03.9 and Elevated liver enz ymes R74.8 [facility] [place] [address] [address] March, Type 2 diabetes mellitus with hyperglyce regina E11.65 ; 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 ; Pulmonary emphysema, unspecified emphysema type J43.9 ; Hypothyroid E03.9 ; Neuropathy G62.9 ; Mixed hyperlipidemia E78.2 ; Chronic pain G89.29 ; Gastroesophageal reflux disease with esophagitis K21.0 ; Irritable bowel syndrome with diarrhea K58.0 ; Overactive bladder N32.81 and Recurrent major depressive disorder, in partial remission F33.41 [facility] [address] [address] Feb, Chronic pain G89.29 [facility] [address] [address] Feb, Type 2 diabetes mellitus with hyperglyce regina E11.65 and Skin lesion of scalp L98.9 [facility] [address] [address] Feb, [facility] [address] [address] Jan, Type 2 diabetes mellitus with hyperglyce regina E11.65 ; MCC current use of insulin Z79.4 ; Essential (primary) hypertension I10 ; Pulmonary emphysema, unspecified emphysema type J43.9 ; Chronic pain G89.29 ; Controlled substance agreement signed Z79.899 ; Hypothyroid E03.9 ; Neuropathy G62.9 ; Gastroesophageal reflux disease with esophagitis K21.0 ; Overactive bladder N32.81 ; Depression F32.9 and Irritable bowel syndrome with diarrhea K58.0 [facility] [address] [address] Jan, [facility] [address] [address] Jan, Controlled substance agreement signed Z7 9.899 [facility] [address] [address] Dec, Type 2 diabetes mellitus with hyperglyce regina E11.65 ; Controlled substance agreement signed Z79.899 ; 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 ; Essential (primary) hypertension I10 ; Hypothyroid E03.9 ; Neuropathy G62.9 ; Depression F32.9 ; Mixed hyperlipidemia E78.2 ; Irritable bowel syndrome with diarrhea K58.0 ; Gastroesophageal reflux disease with esophagitis K21.0 ; Thrombocytosis D47.3 ; Current non-adherence to medical treatment Z91.19 and Overweight (BMI 25.0-29.9) E66.3 [facility] [address] [address] 02 Dec, 2017 Controlled substance agreement signed Z7 9.899 [facility] [address] [address] Nov, Type 2 diabetes mellitus with hyperglyce regina E11.65 and Current non- adherence to medical treatment Z91.19 [facility] [address] [address] Nov, [facility] [address] [address] Nov, Chronic pain G89.29 [facility] [address] [address] Nov, [facility] [address] [address] Nov, Hypothyroid E03.9 [facility] [address] [address] Nov, Hypothyroid E03.9 [facility] [address] [address] Nov, Pulmonary emphysema, unspecified emphyse ma type J43.9 and Irritable bowel syndrome with diarrhea K58.0 [facility] [address] [address] Oct, [facility] [place] [address] [address] Oct, [facility] [address] [address] Oct, [facility] [address] [address] Oct, [facility] [address] [address] Oct, Chronic pain G89.29 [facility] [address] [address] Oct, Diabetes mellitus E11.9 ; Depression F32 .9 ; Mixed hyperlipidemia E78.2 ; Hypotension, unspecified hypotension type I95.9 ; Pulmonary emphysema, unspecified emphysema type J43.9 and Weight loss, unintentional R63.4 [facility] [address] [address] Oct, Chronic pain G89.[address] [address] Sep, Chronic pain G89.[address] [address] Sep, Hypothyroid E03.9 and Diabetes mellitus E11.9 [facility] [address] [address] Aug, Type 2 diabetes mellitus with hyperglyce regina E11.65 ; MCC current use of insulin Z79.4 ; Essential (primary) hypertension I10 ; Hypothyroid E03.9 ; Neuropathy G62.9 ; Chronic pain G89.29 ; Mixed hyperlipidemia E78.2 and Encounter for immunization Z23 [address] [address] Aug, Chronic pain G89.29 [facility] [address] [address] Aug, Overactive bladder N32.81 ; Diabetes alvarez litus E11.9 and Chronic pain G89.29 [facility] [address] [address] Jul, [facility] [address] [address] Jun, [facility] [address] [address] Jun, [facility], [place] [id number] [place] [address] Jun, Hypothyroid E03.9 [facility], [place] [id number] [place] [address] Jun, Diabetes mellitus E11.9 ; Hypothyroid E0 3.9 ; Neuropathy G62.9 ; Chronic pain G89.29 and Neck mass R22.1 [facility], [place] [address] [address] Apr, [facility], [place] [address] [address] Apr, Acute cystitis without hematuria N30.00 [facility], [place] [address] [address] March, [facility], [place] [address] [address] March, [facility], [place] [address] [address] March, Near syncope R55 [facility], [place] [address] [address] Feb, [facility], [place] [address] [address] Feb, Chronic pain G89.29 [facility], [place] [address] [address] Feb, [facility], [place] [id number] [place] [address] Feb, [facility], [place] [address] [address] Jan, Chronic pain G89.29 [facility], [place] [address] [address] Jan, [facility], [place] [address] [address] Jan, [facility], [place] [address] [address] Jan, Diabetes mellitus E11.9 ; Hypothyroid E0 3.9 ; GERD (gastroesophageal reflux disease) K21.9 ; Insomnia G47.00 ; Functional 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 ; Neuropathy G62.9 ; Depression F32.9 ; Chronic pain G89.29 ; Irritable bowel syndrome with diarrhea K58.0 ; Overactive bladder N32.81 ; Mixed hyperlipidemia E78.2 and Bronchitis J40 [facility] [address] [address] Dec, [facility] [address] [address] Dec, [facility] [address] [address] Dec, [facility] [address] [address] Dec, [facility] [address] [address] Dec, Chronic pain G89.29 [facility] [address] [address] Dec, [facility] [address] [address] Dec, [facility] [address] [address] Dec, Type 2 diabetes mellitus with foot ulcer E11.621 [facility] [address] [address] Dec, Type 2 diabetes mellitus with foot ulcer E11.621 [facility] [address] [address] 14 Dec, 2016 HTN (hypertension) I10 ; Depression F32. 9 ; Type 2 diabetes mellitus with foot ulcer E11.621 ; Functional 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 ; Irritable bowel syndrome with diarrhea K58.0 ; Chronic pain G89.29 ; Insomnia G47.00 ; Overactive bladder N32.81 ; Mixed hyperlipidemia E78.2 ; Gastroesophageal reflux disease with esophagitis K21.0 and Acquired hypothyroidism E03.9 [facility] [address] [address] Nov, [facility] [place] [address] [address] Oct, [facility] [address] [address] Oct, [facility] [address] [address] Oct, [facility] [address] [address] Sep, Functional 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 ; HTN (hyperte nsion) I10 ; Diabetes mellitus E11.9 ; Depression F32.9 ; Overactive bladder N32.81 ; Mixed hyperlipidemia E78.2 ; Gastroesophageal reflux disease without esophagitis K21.9 ; Chronic pain G89.29 ; Insomnia G47.00 and Acquired hypothyroidism E03.9 [facility] [address] [address] Sep, [facility] [place] [address] [address] Aug, Encounter for immunization Z23 [facility] [address] [address] Aug, [facility] [place] [address] [address] Jul, [facility] [address] [address] Jun, Type 2 diabetes mellitus without complic ations E11.9 ; HTN (hypertension) I10 ; Hypothyroid E03.9 ; Neuropathy G62.9 ; Depression F32.9 ; Chronic pain G89.29 ; GERD (gastroesophageal reflux disease) K21.9 ; Insomnia G47.00 ; Overactive bladder N32.81 ; Mixed hyperlipidemia E78.2 ; Diarrhea of infectious origin A09 and Environmental allergies Z91.09 [facility] [place] [address] [address] Apr, [facility] [place] [address] [address] March, Hypothyroidism, unspecified E03.9 and Mi xed hyperlipidemia E78.2 [facility] [address] [address] March, Diabetes mellitus E11.9 ; HTN (hypertens ion) I10 ; Hypothyroid E03.9 ; Depression F32.9 ; Overactive bladder N32.81 ; Other chronic pain G89.29 ; Lumbago with sciatica, unspecified side M54.40 ; Environmental allergies Z91.09 and Gastroesophageal reflux disease, esophagitis presence not specified K21.9 [facility] [address] [address] March, [facility] [address] [address] Jan, HTN (hypertension) I10 ; Hypothyroid E03 .9 ; Neuropathy G62.9 ; Diabetes mellitus E11.9 ; Chronic pain G89.29 ; GERD (gastroesophageal reflux disease) K21.9 ; Overactive bladder N32.81 and Depression F32.9 [facility] [address] [address] Dec, Ear pain, left H92.02 ; HTN (hypertensio n) I10 ; Hypothyroid E03.9 ; Neuropathy G62.9 ; Diabetes mellitus E11.9 ; Depression F32.9 ; GERD (gastroesophageal reflux disease) K21.9 ; Insomnia G47.00 and Overactive bladder N32.81 [facility] [address] [address] Nov, Overactive bladder N32.81 and Chronic pa in G89.29 [facility] [address] [address] Nov, Kidney failure N19 [facility] [address] [address] Nov, [facility] [place] [address] [address] Nov, [facility] [address] [address] Nov, Diabetes mellitus E11.9 ; Depression F32 .9 ; Chronic pain G89.29 ; GERD (gastroesophageal reflux disease) K21.9 ; Insomnia G47.00 ; HTN (hypertension) I10 ; Hypothyroid E03.9 ; COPD (chronic obstructive pulmonary disease) J44.9 ; Bladder incontinence R32 and Incontinence R32 [facility] [address] [address] Sep, Type 2 diabetes mellitus with foot ulcer E11.621 and Chromosomal abnormality, 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 [facility] [address] [address] Sep, [facility] [place] [address] [address] Aug, [facility] [address] [address] Aug, [facility] [address] [address] Aug, HTN (hypertension) I10 ; Encounter for i mmunization Z23 ; Hypothyroid E03.9 ; Neuropathy G62.9 ; Diabetes mellitus E11.9 ; Depression F32.9 ; Chronic pain G89.29 ; GERD (gastroesophageal reflux disease) K21.9 ; Insomnia G47.00 and COPD (chronic obstructive pulmonary disease) J44.9 [facility] [address] [address] Jun, [facility] [address] [address] Jun, [facility] [address] [address] May, Essential hypertension, benign 401.1 ; U nspecified hypothyroidism 244.9 ; Insomnia, unspecified 780.52 ; Shortness of breath 786.05 ; Depression 311 ; COPD (chronic obstructive pulmonary disease) 496 ; GERD (gastroesophageal reflux disease) 530.81 and Diabetes 1.5, 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 [facility], [place] [address] [address] May, [facility], [place] [address] [address] May, [facility], [place] [address] [address] May, Shortness of breath 786.05 ; Essential h ypertension, benign 401.1 ; Diabetes mellitus 250.00 ; Hyperlipidemia 272.4 ; Hypothyroid 244.9 ; Insomnia 780.52 and Cough 786.2 [facility], [place] [address] [address] Apr, [facility], [place] [address] [address] March, Shortness of breath 786.05 ; Nausea with vomiting 787.01 ; Essential hypertension, benign 401.1 ; Diabetes mellitus 250.00 ; Hyperlipidemia 272.4 and Hypothyroid 244.9 [facility], [place] [address] [address] Feb, [facility], [place] [address] [address] Feb, [facility], [place] [address] [address] Jan, [facility], [place] [address] [address] Jan, [facility], [place] [address] [address] Jan, [facility], [place] [address] [address] Jan, [facility], [place] [address] [address] Jan, [facility] [address] [facility] [id number] [place] [address] Jan, [facility] [address] [facility] [id number] [place] [address] Jan, [facility] [address] [facility] [facility] [address] [id number] [place] [address] Jan, [facility] [address] [facility] [facility] [id number] [place] [address] Jan, [facility] [address] [facility] [facility] [id number] [place] [address] Jan, [facility] [address] [facility] [facility] [id number] [place] [address] Dec, [facility] [address] [facility] [facility] [id number] [place] [address] Dec, 2014 [facility] [address] [facility] [id number] [place] [address] Dec, 2014 [facility] [address] [facility] [facility] [address] [id number] [place] [address] Dec, 2014 [facility] [address] [facility] [id number] [place] [address] Dec, 2014 [facility] [address] [facility] [id number] [place] [address] Dec, 2014 [facility] [address] [id number] [place] [address] Dec, 2014 [facility] [address] [facility] [address] [id number] [place] [address] Dec, 2014 [facility] [address] [facility] [id number] [place] [address] Dec, 2014 [facility] [address] [facility] [id number] [place] [address] Dec, 2014 [facility] [address] [id number] [place] [address] Oct, [facility] [address] [facility] [facility] [id number] [place] [address] Oct, [facility] [address] [facility] [id number] [place] [address] Oct, [facility] [address] [facility] [facility] [id number] [place] [address] Oct, [facility] [address] [facility] [id number] [place] [address] Oct, [facility] [address] [facility] [id number] [place] [address] Oct, [facility] [address] [facility] [id number] [place] [address] Oct, [facility] [address] [facility] [id number] [place] [address] Oct, [facility] [address] [facility] [id number] [place] [address] Oct, [facility] [address] [facility] [id number] [place] [address] Oct, [facility] [address] [id number] [place] [address] Oct, [facility] [address] [facility] [id number] [place] [address] Oct, [facility] [address] [facility] [id number] [place] [address] Oct, [facility] [address] [facility] [id number] [place] [address] Oct, [facility] [place] [facility] [id number] [place] [address] Sep, [facility] [place] [facility] [id number] [place] [address] Sep, [facility] [place] [facility] [id number] [place] [address] Sep, [facility] [place] [facility] [id number] [place] [address] Sep, [facility] [place] [facility] [id number] [place] [address] 18 Sep, 2014 [facility] [place] [facility] [id number] [place] [address] Sep, [facility] [place] [facility] [id number] [place] [address] Sep, [facility] [place] [facility] [id number] [place] [address] Sep, [facility] [place] [facility] [id number] [place] [address] Sep, [facility] [place] [facility] [id number] [place] [address] Aug, [facility] [place] [facility] [id number] [place] [address] Aug, [facility] [place] [facility] [id number] [place] [address] Aug, [facility] [place] [facility] [id number] [place] [address] Aug, [facility] [place] [facility] [id number] [place] [address] 16 Aug, 2014 [facility] [place] [facility] [id number] [place] [address] Aug, [facility] [place] [facility] [id number] [place] [address] Aug, [facility] [place] [facility] [id number] [place] [address] Aug, [facility] [place] [facility] [id number] [place] [address] Aug, [facility] [place] [facility] [id number] [place] [address] 29 Jul, 2014 [facility] [place] [facility] [id number] [place] [address] 29 Jul, 2014 [facility] [place] [facility] [id number] [place] [address] 25 Jul, 2014 [facility] [place] [facility] [address] [id number] [place] [address] Jul, 2013 [facility] [place] [facility] [address] [id number] [place] [address] Jul, 2013 [facility] [place] [facility] [address] [id number] [place] [address] Jul, 2013 [facility] [place] [facility] [address] [id number] [facility] [place] [address] Jul, 2013 [facility] [place] [facility] [address] [id number] [facility] [place] [address] Jul, 2013 [facility] [place] [facility] [address] [id number] [place] [address] Jul, [facility] [place] [facility] [id number] [place] [address] Jul, [facility] [place] [facility] [id number] [place] [address] Jun, [facility] [place] [facility] [address] [id number] [place] [address] Jun, [facility] [place] [facility] [address] [id number] [place] [address] Jun, [facility] [place] [facility] [id number] [place] [address] Jun, [facility] [place] [facility] [address] [id number] [place] [address] Jun, [facility] [place] [facility] [address] [id number] [place] [address] Jun, [facility] [place] [facility] [address] [id number] [place] [address] Jun, [facility] [place] [facility] [address] [id number] [place] [address] Jun, [facility] [place] [facility] [id number] [place] [address] Jun, [facility] [place] [facility] [address] [id number] [facility] [place] [address] Jun, [facility] [place] [facility] [address] [id number] [facility] [place] [address] Jun, [facility] [place] [facility] [address] [id number] [facility] [place] [address] Jun, [facility] [place] [facility] [id number] [facility] [place] [address] May, [facility] [place] [facility] [address] [id number] [facility] [place] [address] May, [facility] [place] [facility] [address] [id number] [facility] [place] [address] May, [facility] [place] [facility] [id number] [place] [address] May, [facility] [place] [facility] [id number] [place] [address] May, [facility] [place] [facility] [id number] [place] [address] May, [facility] [place] [facility] [address] [id number] [place] [address] March, [facility] [place] [facility] [id number] [place] [address] March, [facility] [place] [facility] [id number] [place] [address] March, [facility] [place] [facility] [id number] [place] [address] March, [facility] [place] [facility] [address] [id number] [place] [address] March, [facility] [place] [facility] [id number] [place] [address] March, [facility] [place] [facility] [address] [id number] [place] [address] Feb, [facility] [place] [facility] [id number] [place] [address] Feb, [facility] [place] [facility] [id number] [place] [address] Feb, [facility] [place] [facility] [id number] [place] [address] Feb, [facility] [place] [facility] [id number] [place] [address] Jan, [facility] [place] [facility] [id number] [place] [address] Jan, [facility] [place] [facility] [id number] [place] [address] Jan, [facility] [place] [facility] [id number] [place] [address] Jan, [facility] [place] [facility] [id number] [place] [address] Jan, [facility] [place] [facility] [id number] [place] [address] Jan, [facility] [place] [facility] [id number] [place] [address] Jan, [facility] [place] [facility] [id number] [place] [address] Jan, [facility] [place] [facility] [id number] [place] [address] Jan, [facility] [place] [facility] [id number] [place] [address] Jan, [facility] [place] [facility] [id number] [place] [address] Jan, [facility] [place] [facility] [id number] [place] [address] Jan, [facility] [place] [facility] [id number] [place] [address] Dec, [facility] [place] [facility] [id number] [place] [address] Dec, [facility] [place] [facility] [id number] [place] [address] Dec, [facility] [place] [facility] [id number] [place] [address] Dec, [facility] [place] [facility] [id number] [place] [address] Dec, [facility] [place] [facility] [id number] [place] [address] Dec, [facility] [place] [facility] [id number] [place] [address] Nov, [facility] [place] [facility] [id number] [place] [address] Nov, [facility] [place] [facility] [id number] [place] [address] Oct, [facility] [place] [facility] [id number] [place] [address] Oct, [facility] [place] [facility] [id number] [place] [address] Oct, [facility] [place] [facility] [id number] [place] [address] Oct, [facility] [place] [facility] [id number] [place] [address] Oct, [facility] [place] [facility] [id number] [place] [address] Oct, [facility] [place] [facility] [id number] [place] [address] Sep, [facility] [place] [facility] [id number] [place] [address] Sep, [facility] [place] [facility] [id number] [place] [address] Sep, [facility] [place] [facility] [id number] [place] [address] Sep, [facility] [place] [facility] [id number] [place] [address] Aug, [facility] [place] [facility] [id number] [place] [address] Aug, [facility] [place] [facility] [address] [id number] [place] [address] Aug, [facility] [place] [facility] [id number] [place] [address] Jul, [facility] [place] [facility] [id number] [place] [address] 14 Jul, 2013 [facility] [place] [facility] [id number] [place] [address] Jul, [facility] [place] [facility] [id number] [place] [address] Jun, [facility] [place] [facility] [id number] [place] [address] Jun, [facility] [place] [facility] [id number] [place] [address] Jun, [facility] [place] [facility] [id number] [place] [address] Apr, [facility] [place] [facility] [id number] [place] [address] Apr, [facility] [place] [facility] [id number] [place] [address] March, [facility] [place] [facility] [id number] [place] [address] March, [facility] [place] [facility] [id number] [place] [address] March, [facility] [place] [facility] [id number] [place] [address] March, [facility] [place] [facility] [id number] [place] [address] Feb, [facility] [place] [facility] [id number] [place] [address] Jan, [facility] [place] [facility] [id number] [place] [address] Dec, [facility] [place] [facility] [id number] [place] [address] 08 Dec, 2012 [facility] [place] [facility] [id number] [place] [address] 07 Dec, 2012 [facility] [place] [facility] [id number] [place] [address] Nov, [facility] [place] [facility] [id number] [place] [address] Oct, [facility] [place] [facility] [id number] [place] [address] Oct, [facility] [place] [facility] [id number] [place] [address] Sep, [facility] [place] [facility] [id number] [place] [address] Sep, [facility] [place] [facility] [id number] [place] [address] Sep, [facility] [place] [facility] [id number] [place] [address] Sep, [facility] [place] [facility] [id number] [place] [address] Sep, [facility] [place] [facility] [id number] [place] [address] Sep, [facility] [place] [facility] [id number] [place] [address] Sep, [facility] [place] [facility] [id number] [place] [address] 16 Aug, 2012 [facility] [place] [facility] [id number] [place] [address] 16 Aug, 2012 [facility] [place] [facility] [id number] [place] [address] Aug, [facility] [place] [facility] [id number] [place] [address] Aug, [facility] [place] [facility] [id number] [place] [address] Aug, [facility] [place] [facility] [address] [id number] [place] [address] Aug, [facility] [place] [facility] [id number] [place] [address] Aug, [facility] [place] [facility] [id number] [place] [address] Aug, [facility] [place] [facility] [id number] [place] [address] Jul, [facility] [place] [facility] [id number] [place] [address] Jul, [facility] [place] [facility] [id number] [place] [address] Jun, [facility] [place] [facility] [id number] [place] [address] May, [facility] [place] [facility] [id number] [place] [address] Apr, [facility] [place] [facility] [id number] [place] [address] Apr, [facility] [place] [facility] [id number] [place] [address] Apr, [facility] [place] [facility] [id number] [place] [address] March, [facility] [place] [facility] [id number] [place] [address] March, [facility] [place] [facility] [id number] [place] [address] March, [facility] [place] [facility] [id number] [place] [address] March, [facility] [place] [facility] [id number] [place] [address] March, [facility] [place] [facility] [id number] [place] [address] March, [facility] [place] [facility] [id number] [place] [address] March, [facility] [place] [facility] [id number] [place] [address] Jan, [facility] [place] [facility] [id number] [place] [address] Jan, [facility] [place] [facility] [id number] [place] [address] Jan, [facility] [place] [facility] [id number] [place] [address] 13 Jan, 2012 [facility] [place] [facility] [id number] [place] [address] Jan, [facility] [place] [facility] [id number] [place] [address] Dec, [facility] [place] [facility] [id number] [place] [address] Dec, [facility] [place] [facility] [id number] [place] [address] Nov, [facility] [place] [facility] [id number] [place] [address] Nov, [facility] [place] [facility] [id number] [place] [address] Nov, [facility] [place] [facility] [id number] [place] [address] Nov, [facility] [place] [facility] [id number] [place] [address] Oct, [facility] [place] [facility] [id number] [place] [address] Oct, [facility] [place] [facility] [id number] [place] [address] 14 Sep, 2011 [facility] [place] [facility] [id number] [place] [address] 10 Sep, 2011 [facility] [place] [facility] [id number] [place] [address] 10 Sep, 2011 [facility] [id number] [place] [address] 11 May, 2011 [facility] [place] [facility] [id number] [place] [address] Nov, [facility] [place] [facility] [id number] [place] [address] 29 Oct, 2010 [facility] [place] [facility] [id number] [place] [address] 14 Oct, 2010 [facility] [place] [facility] [id number] [place] [address] 08 Oct, 2010 [facility] [place] [facility] [id number] [place] [address] 15 Sep, 2010 [facility] [place] [facility] [id number] [place] [address] Sep, [facility] [place] [facility] [id number] [place] [address] Aug, [facility] [place] [facility] [id number] [place] [address] March, [facility] [place] [facility] [id number] [place] [address] Oct, [facility] [place] [facility] [id number] [place] [address] 17 Oct, 2009 [facility] [place] [facility] [id number] [place] [address] Oct, [facility] [place] [facility] [id number] [place] [address] Oct, [facility] [place] [facility] [id number] [place] [address] Sep, [facility] [place] [facility] [id number] [place] [address] Sep, [facility] [place] [facility] [id number] [place] [address] Sep, [facility] [place] [facility] [id number] [place] [address] Aug, [facility] [place] [id number] [place] [address] Aug, [facility] [place] [id number] [place] [address] Aug, [facility] [place] [id number] [place] [address] Jan, IMMUNIZATIONS No Known Immunizations SOCIAL HISTORY [...]
--- OUTSIDE RECORDS SUMMARY | 2020-06-13 16:07 | XMS REPORT ---
Author Author Jah Durant Doctor Organization [facility] Address Unknown Phone Unavailable Care Team Providers Care Scallop Binder Name Role Phone Migration, Doctor Unavailable Unavailable PROBLEMS Type Condition ICD9-CM Code GYN97-JP Code Onset Dates Condition S tatus SNOMED Code Problem Neuropathy G62.9 Active 287280678 Problem Chronic pain G89.29 Active 7393775 1 Problem Overactive bladder N32.81 Active 2 87770667 Problem Hypothyroid E03.9 Active 15882269 Problem Irritable bowel syndrome with diarrhea K58.0 Active 255925405 Problem halfway current use of insulin Z79.4 Active 074603799 Problem Type 2 diabetes mellitus with hyperglycemia E11.65 Active 32821750 Problem Chronic obstructive pulmonary disease, unspecified COPD ty pe J44.9 Active 31390400 Problem Gastroesophageal reflux disease with esophagitis K 21.0 Active 783464235 Problem Major depressive disorder, recurrent, in full remission F33.42 Active 05999068 Problem Mixed hyperlipidemia E78.2 Active 919534887 Problem Essential (primary) hypertension I10 Active 78526327 Problem Anxiety disorder, unspecified type F41.9 Active 896919444 Problem Gastroparesis K31.84 Active 200100 006 Problem 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 Active [id number] ALLERGIES No Information ENCOUNTERS Encounter Location Date Diagnosis [place] [address] [facility] [id number] [address] [place] [address] Jun, Encounter for Medicare annua l wellness exam Z00.00 ; Type 2 diabetes mellitus with hyperglycemia E11.65 ; Mixed hyperlipidemia E78.2 ; Hypothyroid E03.9 ; Gastroesophageal reflux disease with esophagitis K21.0 ; Essential (primary) hypertension I10 ; Major depressive disorder, recurrent, in full remission F33.42 ; Chronic obstructive pulmonary disease, unspecified COPD type J44.9 ; Neuropathy G62.9 and Encounter for immunization Z23 [place] [id number] [facility] [id number] [address] [place] [address] Jun, [facility] [address] [facility] [id number] [address] [place] [address] May, Chronic pain G89.29 [facility] [address] [facility] [id number] [address] [place] [address] May, Type 2 diabetes mellitus wit h hyperglycemia E11.65 and Neuropathy G62.9 [facility] [address] [facility] [id number] [address] [place] [address] May, Chronic pain G89.29 [facility] [address] [facility] [id number] [address] [place] [address] Apr, Poison maryam dermatitis L23.7 [facility] [address] [facility] [id number] [address] [place] [address] Apr, Chronic pain G89.29 [facility] [address] [facility] [id number] [address] [place] [address] March, Type 2 diabetes mellitus wit h hyperglycemia E11.65 [facility] [address] [facility] [id number] [address] [place] [address] March, Chronic pain G89.29 [facility] [address] [facility] [id number] [address] [place] [address] March, [address] [address] Feb, [facility] [address] [facility] [id number] [address] [place] [address] Feb, Other chronic pain G89.29 an d Chronic pain G89.29 [facility] [address] [facility] [id number] [address] [place] [address] Jan, Mixed hyperlipidemia E78.2 [facility] [address] [facility] [id number] [address] [place] [address] Jan, Chronic pain G89.29 [facility] [address] [facility] [id number] [address] [place] [address] Jan, Type 2 diabetes mellitus wit h hyperglycemia E11.65 ; Mixed hyperlipidemia E78.2 ; 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.4 ; Acquired hypothyroidism E03.9 and Essential (primary) hypertension I10 [facility] [address] [place] [id number] [address] [place] [address] Dec, Chronic pain G89.29 [facility] [address] [place] [id number] [address] [place] [address] Nov, Chronic pain G89.29 [facility] [address] [place] [id number] [address] [place] [address] Nov, [facility] [address] [address] Oct, Chronic pain G89.29 [facility] [address] [address] Oct, [facility] [address] [address] Sep, [facility] [address] [place] [id number] [address] [place] [address] Sep, Type 2 diabetes mellitus wit h hyperglycemia E11.65 [place] [address] [place] [id number] [address] [place] [address] 16 Sep, 2018 Chronic pain G89.29 [facility] [address] [place] [id number] [address] [place] [address] Sep, [facility] [address] [place] [id number] [address] [place] [address] Sep, Type 2 diabetes mellitus wit h hyperglycemia E11.65 ; Irritable bowel syndrome with diarrhea K58.0 ; Gastroparesis K31.84 ; 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 and Dermatitis L30.9 [facility] [address] [place] [id number] [address] [place] [address] Aug, Chronic pain G89.29 [facility] [address] [place] [id number] [address] [place] [address] Jul, Chronic pain G89.29 [facility] [address] [facility] [id number] [address] [place] [address] Jun, Type 2 diabetes mellitus wit h hyperglycemia E11.65 ; Neuropathy G62.9 ; Recurrent major depressive disorder, in partial remission F33.41 ; Chronic pain G89.29 and Hypertriglyceridemia E78.1 [facility] [address] [facility] [id number] [address] [place] [address] Jun, Hypothyroid E03.9 [facility] [address] [facility] [id number] [address] [place] [address] Jun, Major depressive disorder, r ecurrent episode, moderate F33.1 and Anxiety disorder, unspecified type F41.9 [place] [address] [place] [id number] [address] [place] [address] Jun, [place] [address] [place] [id number] [address] [place] [address] Jun, Type 2 diabetes mellitus wit h hyperglycemia E11.65 ; 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.4 ; Recurrent major depressive disorder, in partial remission F33.41 ; Hypothyroid E03.9 ; Candidal dermatitis B37.2 and Weakness generalized R53.1 [place] [address] [facility] [id number] [address] [place] [address] May, [facility] [address] [facility] [id number] [address] [place] [address] May, [facility] [address] [facility] [id number] [address] [place] [address] May, [facility] [address] [facility] [id number] [address] [place] [address] May, Generalized abdominal pain R 10.84 and Candidal dermatitis B37.2 [facility] [address] [facility] [id number] [address] [place] [address] May, [place] [address] [facility] [id number] [address] [place] [address] May, [place] [address] [facility] [id number] [address] [place] [address] May, Nodular radiologic density R 93.8 ; Weight loss, unintentional R63.4 and Pulmonary emphysema, unspecified emphysema type J43.9 [place] [address] [facility] [id number] [address] [place] [address] May, Chronic pain G89.29 [place] [address] [facility] [id number] [address] [place] [address] 09 May, 2018 Syncope and collapse R55 ; C hronic fatigue R53.[address] lung screening R91.8 [place] [address] [facility] [id number] [address] [place] [address] May, [place] [address] [place] [id number] [place] [address] Apr, Chronic fatigue R53.82 ; Abn ormal chest CT R93.8 ; Elevated erythrocyte sedimentation rate R70.0 ; Hypothyroid E03.9 and Recurrent major depressive disorder, in partial remission F33.41 [place] [address] [facility] [id number] [address] [place] [address] Apr, Hypothyroid E03.9 [place] [address] [place] [id number] [address] [place] [address] Apr, Depression F32.9 [place] [address] [facility] [id number] [address] [place] [address] Apr, [place] [address] [facility] [id number] [address] [place] [address] March, [place] [address] [facility] [id number] [address] [place] [address] March, Hypothyroid E03.9 [place] [address] [facility] [id number] [address] [place] [address] March, Diabetes mellitus E11.9 and Hypothyroid E03.9 [place] [address] [facility] [id number] [address] [place] [address] March, Diabetes mellitus E11.9 [place] [address] [facility] [id number] [address] [place] [address] March, Hypothyroid E03.9 and Elevat ed liver enzymes R74.8 [place] [address] [facility] [id number] [address] [place] [address] March, Type 2 diabetes mellitus wit h hyperglycemia E11.65 ; 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.4 ; Pulmonary emphysema, unspecified emphysema type J43.9 ; Hypothyroid E03.9 ; Neuropathy G62.9 ; Mixed hyperlipidemia E78.2 ; Chronic pain G89.29 ; Gastroesophageal reflux disease with esophagitis K21.0 ; Irritable bowel syndrome with diarrhea K58.0 ; Overactive bladder N32.81 and Recurrent major depressive disorder, in partial remission F33.41 [place] [address] [place] [id number] [address] [place] [address] Feb, Chronic pain G89.29 [place] [address] [place] [id number] [address] [place] [address] Feb, Type 2 diabetes mellitus wit h hyperglycemia E11.65 and Skin lesion of scalp L98.9 [place] [address] [place] [id number] [address] [place] [address] Feb, [place] [address] [place] [id number] [address] [place] [address] Jan, Type 2 diabetes mellitus wit h [...] and Irritable bowel syndrome with diarrhea K58.0 [place] [address] [facility] [id number] [address] [place] [address] Jan, [facility] [address] [id number] [address] [place] [address] Jan, Controlled substance agreeme nt signed Z79.899 [facility] [address] [facility] [id number] [address] [place] [address] 08 Dec, 2017 Type 2 diabetes mellitus wit h hyperglycemia E11.65 ; Controlled substance agreement signed Z79.899 ; 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.4 ; Essential (primary) hypertension I10 ; Hypothyroid E03.9 ; Neuropathy G62.9 ; Depression F32.9 ; Mixed hyperlipidemia E78.2 ; Irritable bowel syndrome with diarrhea K58.0 ; Gastroesophageal reflux disease with esophagitis K21.0 ; Thrombocytosis D47.3 ; Current non-adherence to medical treatment Z91.19 and Overweight (BMI 25.0-29.9) E66.3 [place] [id number] [facility] [id number] [address] [place] [address] 02 Dec, 2017 Controlled substance agreeme nt signed Z79.899 [place] [address] [facility] [id number] [address] [place] [address] Nov, Type 2 diabetes mellitus wit h hyperglycemia E11.65 and Current non- adherence to medical treatment Z91.19 [place] [address] [facility] [id number] [address] [place] [address] Nov, [place] [address] [facility] [id number] [address] [place] [address] Nov, Chronic pain G89.29 [place] [address] [facility] [id number] [address] [place] [address] Nov, [place] [address] [facility] [id number] [address] [place] [address] Nov, Hypothyroid E03.9 [place] [address] [facility] [id number] [address] [place] [address] Nov, Hypothyroid E03.9 [place] [address] [address] Nov, Pulmonary emphysema, unspeci fied emphysema type J43.9 and Irritable bowel syndrome with diarrhea K58.0 [place] [address] [address] Oct, [place] [address] [address] Oct, [place] [address] [address] Oct, [place] [address] [address] Oct, [place] [address] [address] Oct, Chronic pain G89.29 [place] [address] [address] Oct, Diabetes mellitus E11.9 ; De pression F32.9 ; Mixed hyperlipidemia E78.2 ; Hypotension, unspecified hypotension type I95.9 ; Pulmonary emphysema, unspecified emphysema type J43.9 and Weight loss, unintentional R63.4 [place] [address] [address] Oct, Chronic pain G89.29 [place] [address] [address] Sep, Chronic pain G89.29 [place] [address] [address] Sep, Hypothyroid E03.9 and Diabet es mellitus E11.[address] [address] Aug, Type 2 diabetes mellitus wit h hyperglycemia E11.65 ; halfway current use of insulin Z79.4 ; Essential (primary) hypertension I10 ; Hypothyroid E03.9 ; Neuropathy G62.9 ; Chronic pain G89.29 ; Mixed hy perlipidemia E78.2 and Encounter for immunization Z23 [facility] [address] [facility] [id number] [address] [place] [address] Aug, Chronic pain G89.29 [facility] [address] [facility] [id number] [address] [place] [address] Aug, Overactive bladder N32.81 ; Diabetes mellitus E11.9 and Chronic pain G89.29 [facility] [address] [facility] [id number] [address] [place] [address] Jul, [facility] [address] [facility] [id number] [address] [place] [address] Jun, [facility] [address] [place] [id number] [address] [place] [address] Jun, [facility] [address] [place] [id number] [address] [place] [address] Jun, Hypothyroid E03.9 [facility] [address] [facility] [id number] [address] [place] [address] Jun, Diabetes mellitus E11.9 ; Hy pothyroid E03.9 ; Neuropathy G62.9 ; Chronic pain G89.29 and Neck mass R22.1 [facility] [address] [facility] [id number] [address] [place] [address] Apr, [facility] [address] [place] [id number] [address] [place] [address] Apr, Acute cystitis without hemat uria N30.00 [facility] [address] [facility] [id number] [address] [place] [address] March, [facility] [address] [place] [id number] [address] [place] [address] March, [facility] [address] [facility] [id number] [address] [place] [address] March, Near syncope R55 [facility] [address] [place] [id number] [place] [address] Feb, [facility] [address] [facility] [id number] [address] [place] [address] Feb, Chronic pain G89.29 [facility] [address] [facility] [id number] [address] [place] [address] Feb, [facility] [address] [facility] [id number] [address] [place] [address] Feb, [facility] [address] [facility] [id number] [address] [place] [address] Jan, Chronic pain G89.29 [facility] [address] [place] [id number] [address] [place] [address] Jan, [facility] [address] [place] [id number] [address] [place] [address] Jan, [facility] [id number] [place] [address] 14 Jan, 2017 Diabetes mellitus E11.9 ; Hy pothyroid E03.9 ; GERD (gastroesophageal reflux disease) K21.9 ; Insomnia G47.00 ; Functional 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 ; Neuropathy G62.9 ; Depression F32.9 ; Chronic pain G89.29 ; Irritable bowel syndrome with diarrhea K58.0 ; Overactive bladder N32.81 ; Mixed hyperlipidemia E78.2 and Bronchitis J40 [facility] [address] [facility] [id number] [address] [place] [address] Dec, [facility] [address] [facility] [id number] [address] [place] [address] Dec, [facility] [address] [place] [id number] [address] [place] [address] Dec, [facility] [address] [place] [id number] [address] [place] [address] Dec, [facility] [address] [place] [id number] [address] [place] [address] Dec, Chronic pain G89.29 [facility] [id number] [place] [address] Dec, [facility] [address] [place] [id number] [address] [place] [address] Dec, [place] [address] [address] Dec, Type 2 diabetes mellitus wit h foot ulcer E11.621 [facility] [address] [place] [id number] [address] [place] [address] Dec, Type 2 diabetes mellitus wit h foot ulcer E11.621 [place] [address] [address] 14 Dec, 2016 HTN (hypertension) I10 ; Dep ression F32.9 ; Type 2 diabetes mellitus with foot ulcer E11.621 ; Functional 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 ; Irritable bowel syndrome with diarrhea K58.0 ; Chronic pain G89.29 ; Insomnia G47.00 ; Overactive bladder N32.81 ; Mixed hyperlipidemia E78.2 ; Gastroesophageal reflux disease with esophagitis K21.0 and Acquired hypothyroidism E03.9 [place] [address] [place] [id number] [address] [place] [address] Nov, [place] [address] [address] Oct, [place] [address] [address] Oct, [place] [address] [address] Oct, [place] [address] [address] Sep, Functional 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 ; HTN (hypertension) I10 ; Diabetes mellitus E11.9 ; Depression F32.9 ; Overactive bladder N32.81 ; Mixed hyperlipidemia E78.2 ; Gastroesophageal reflux disease without esophagitis K21.9 ; Chronic pain G89.29 ; Insomnia G47.00 and Acquired hypothyroidism E03.9 [place] [address] [address] Sep, [place] [address] [address] Aug, Encounter for immunization Z 23 [place] [address] [address] Aug, [place] [address] [address] Jul, [place] [address] [address] Jun, Type 2 diabetes mellitus wit hout complications E11.9 ; HTN (hypertension) I10 ; Hypothyroid E03.9 ; Neuropathy G62.9 ; Depression F32.9 ; Chronic pain G89.29 ; GERD (gastroesophageal reflux disease) K21.9 ; Insomnia G47.00 ; Overactive bladder N32.81 ; Mixed hyperlipidemia E78.2 ; Diarrhea of infectious origin A09 and Environmental allergies Z91.09 [place] [address] [address] Apr, [place] [address] [address] March, Hypothyroidism, unspecified E03.9 and Mixed hyperlipidemia E78.2 [place] [address] [address] March, Diabetes mellitus E11.9 ; HT N (hypertension) I10 ; Hypothyroid E03.9 ; Depression F32.9 ; Overactive bladder N32.81 ; Other chronic pain G89.29 ; Lumbago with sciatica, unspecified side M54.40 ; Environmental allergies Z91.09 and Gastroesophageal reflux disease, esophagitis presence not specified K21.9 [place] [address] [address] March, [place] [address] [address] 11 Jan, 2016 HTN (hypertension) I10 ; Hyp othyroid E03.9 ; Neuropathy G62.9 ; Diabetes mellitus E11.9 ; Chronic pain G89.29 ; GERD (gastroesophageal reflux disease) K21.9 ; Overactive bladder N32.81 and Depression F32.9 [place] [address] [address] 12 Dec, 2015 Ear pain, left H92.02 ; HTN (hypertension) I10 ; Hypothyroid E03.9 ; Neuropathy G62.9 ; Diabetes mellitus E11.9 ; Depression F32.9 ; GERD (gastroesophageal reflux disease) K21.9 ; Insomnia G47.00 and Overactive bladder N32.81 [place] [address] [address] Nov, Overactive bladder N32.81 an d Chronic pain G89.29 [place] [address] [address] Nov, Kidney failure N19 [place] [address] [address] Nov, [place] [address] [address] Nov, [place] [address] [address] Nov, Diabetes mellitus E11.9 ; De pression F32.9 ; Chronic pain G89.29 ; GERD (gastroesophageal reflux disease) K21.9 ; Insomnia G47.00 ; HTN (hypertension) I10 ; Hypothyroid E03.9 ; COPD (chronic obstructive pulmonary disease) J44.9 ; Bladder incontinence R32 and Incontinence R32 [place] [address] [address] Sep, Type 2 diabetes mellitus wit h foot ulcer E11.621 and Chromosomal abnormality, 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 [place] [address] [address] Sep, [place] [address] [address] Aug, [place] [address] [address] Aug, [place] [address] [address] Aug, HTN (hypertension) I10 ; Enc ounter for immunization Z23 ; Hypothyroid E03.9 ; Neuropathy G62.9 ; Diabetes mellitus E11.9 ; Depression F32.9 ; Chronic pain G89.29 ; GERD (gastroesophageal reflux disease) K21.9 ; Insomnia G47.00 and COPD (chronic obstructive pulmonary disease) J44.9 [place] [address] [address] Jun, [address] [address] Jun, [place] [address] [address] May, Essential hypertension, ivis gn 401.1 ; Unspecified hypothyroidism 244.9 ; Insomnia, unspecified 780.52 ; Shortness of breath 786.05 ; Depression 311 ; COPD (chronic obstructive pulmonary disease) 496 ; GERD (gastroesophageal reflux disease) 530.81 and Diabetes 1.5, 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 [place] [address] [address] May, [place] [address] [address] May, [address] [address] May, Shortness of breath 786.05 ; Essential hypertension, benign 401.1 ; Diabetes mellitus 250.00 ; Hyperlipidemia 272.4 ; Hypothyroid 244.9 ; Insomnia 780.52 and Cough 786.[address] [id number] [address] [place] [id number] Apr, [facility] [address] [id number] [address] [place] [id number] March, Shortness of breath 786.05 ; Nausea with vomiting 787.01 ; Essential hypertension, benign 401.1 ; Diabetes mellitus 250.00 ; Hyperlipidemia 272.4 and Hypothyroid 244.9 [facility] [address] [id number] [address] [place] [id number] Feb, [facility] [address] [id number] [address] [place] [id number] Feb, [facility] [address] [id number] [address] [place] [id number] Jan, [facility] [address] [id number] [address] [place] [address] [address] Jan, [facility] [address] [id number] [address] [place] [address] Jan, [facility] [address] [id number] [address] [place] [address] Jan, [facility] [address] [id number] [address] [place] [address] Jan, [facility] [address] [id number] [address] [place] [address] Jan, [facility] [address] [id number] [address] [place] [address] Jan, [facility] [address] [id number] [address] [place] [address] Jan, [facility] [address] [id number] [address] [place] [address] Jan, [facility] [address] [id number] [address] [place] [address] Jan, [facility] [address] [id number] [address] [place] [address] Dec, 2014 [facility] [address] [id number] [address] [place] [address], [place] [address] Dec, 2014 [facility] [address] [id number] [address] [place] [address], [place] [address] Dec, 2014 [facility] [address] [id number] [address] [place] [address], [place] [address] Dec, 2014 [facility] [address] [id number] [address] [place] [address], [place] [address] Dec, 2014 [facility] [address] [id number] [address] [place] [address], [place] [address] Dec, 2014 [facility] [address] [id number] [address] [place] [address], [place] [address] Dec, 2014 [facility] [address] [id number] [address] [place] [address], [place] [address] Dec, 2014 [facility] [address] [id number] [address] [place] [address], [place] [address] Dec, 2014 [facility] [address] [id number] [address] [place] [address], [place] [address] Dec, 2014 [facility] [address] [id number] [address] [place] [address], [place] [address] Oct, [facility] [address] [id number] [address] [place] [address], [place] [address] Oct, [facility] [address] [id number] [address] [place] [address], [place] [address] Oct, [facility] [address] [id number] [address] [place] [address], [place] [address] Oct, [facility] [address] [id number] [address] [place] [address], [place] [address] Oct, [facility] [address] [id number] [address] [place] [address], [place] [address] Oct, [facility] [address] [id number] [address] [place] [address], [place] [address] 05 Oct, 2014 [facility] [address] [id number] [address] [place] [address], [place] [address] Oct, [facility] [address] [id number] [address] [place] [address], [place] [address] Oct, [facility] [address] [id number] [address] [place] [address], [place] [address] Oct, [facility] [address] [id number] [address] [place] [address], [place] [address] Oct, [facility] [address] [id number] [address] [place] [address], [place] [address] Oct, [facility] [address] [id number] [address] [place] [address], [place] [address] Oct, [facility] [address] [id number] [address] [place] [address], [place] [address] Oct, [facility] [address] [id number] [address] [place] [address], [place] [address] Sep, [facility] [address] [id number] [address] [place] [address], [place] [address] Sep, [facility] [address] [id number] [address] [place] [address], [place] [address] Sep, [facility] [address] [id number] [address] [place] [address], [place] [address] Sep, [facility] [address] [id number] [address] [place] [address], [place] [address] Sep, [facility] [address] [id number] [address] [place] [address], [place] [address] Sep, [facility] [address] [id number] [address] [place] [address], [place] [address] Sep, [facility] [address] [id number] [address] [place] [address] Sep, [facility] [address] [id number] [address] [place] [address], [place] [address] Sep, [facility] [address] [id number] [address] [place] [address], [place] [address] Aug, [facility] [address] [id number] [address] [place] [address], [place] [address] Aug, [facility] [address] [id number] [address] [place] [address], [place] [address] Aug, [facility] [address] [id number] [address] [place] [address], [place] [address] 17 Aug, 2014 [facility] [address] [id number] [address] [place] [address], [place] [address] 16 Aug, 2014 [facility] [address] [id number] [address] [place] [address], [place] [address] Aug, [facility] [address] [id number] [address] [place] [address], [place] [address] Aug, [facility] [address] [id number] [address] [place] [address], [place] [address] Aug, [facility] [address] [id number] [address] [place] [address] Aug, [facility] [address] [id number] [address] [place] [address], [place] [address] 29 Jul, 2013 [facility] [address] [id number] [address] [place] [address] 29 Jul, 2013 [facility] [address] [id number] [address] [place] [address], [place] [address] 25 Jul, 2013 [facility] [address] [id number] [address] [place] [address], [place] [address] 25 Jul, 2013 [facility] [address] [id number] [address] [place] [address], [place] [address] 25 Jul, 2013 [facility] [address] [id number] [facility] [place] [address] Jul, 2013 [facility] [address] [id number] [facility] [place] [address] Jul, [facility] [address] [id number] [facility] [place] [address] Jul, [facility] [address] [id number] [facility] [place] [address] Jul, [facility] [address] [id number] [facility] [place] [address] Jul, [facility] [address] [id number] [address] [place] [address], [place] [address] Jun, [facility] [address] [id number] [address] [place] [address], [place] [address] Jun, [facility] [address] [id number] [address] [place] [address], [place] [address] Jun, [facility] [address] [id number] [address] [place] [address], [place] [address] Jun, [facility] [address] [id number] [address] [place] [address], [place] [address] Jun, [facility] [address] [id number] [address] [place] [address], [place] [address] Jun, [facility] [address] [id number] [address] [place] [address], [place] [address] Jun, [facility] [address] [id number] [address] [place] [address], [place] [address] Jun, [facility] [address] [id number] [address] [place] [address], [place] [address] Jun, [facility] [address] [id number] [address] [place] [address], [place] [address] Jun, [facility] [address] [id number] [address] [place] [address], [place] [address] Jun, [facility] [address] [id number] [facility] [place] [address] Jun, [facility] [address] [id number] [address] [place] [address], [place] [address] May, [facility] [address] [id number] [address] [place] [address], [place] [address] May, [facility] [address] [id number] [address] [place] [address], [place] [address] May, [facility] [address] [id number] [address] [place] [address], [place] [address] May, [facility] [address] [id number] [address] [place] [address], [place] [address] May, [facility] [address] [id number] [address] [place] [address], [place] [address] May, [facility] [address] [id number] [address] [place] [address], [place] [address] March, [facility] [address] [id number] [address] [place] [address], [place] [address] March, [facility] [address] [id number] [address] [place] [address], [place] [address] March, [facility] [address] [id number] [address] [place] [address], [place] [address] March, [facility] [address] [id number] [address] [place] [address], [place] [address] March, [facility] [address] [id number] [address] [place] [address], [place] [address] March, [facility] [address] [id number] [address] [place] [address], [place] [address] Feb, [facility] [address] [id number] [address] [place] [address], [place] [address] Feb, [facility] [address] [id number] [facility] [place] [address] Feb, [facility] [address] [id number] [address] [place] [address], [place] [address] Feb, [facility] [address] [id number] [address] [place] [address], [place] [address] Jan, [facility] [address] [id number] [address] [place] [address], [place] [address] Jan, [facility] [address] [id number] [address] [place] [address], [place] [address] Jan, [facility] [address] [id number] [address] [place] [address], [place] [address] Jan, [facility] [address] [id number] [address] [place] [address], [place] [address] Jan, [facility] [address] [id number] [address] [place] [address], [place] [address] Jan, [facility] [address] [id number] [address] [place] [address], [place] [address] Jan, [facility] [address] [id number] [address] [place] [address], [place] [address] Jan, [facility] [address] [id number] [address] [place] [address], [place] [address] Jan, [facility] [address] [id number] [address] [place] [address], [place] [address] Jan, [facility] [address] [id number] [address] [place] [address], [place] [address] Jan, [facility] [address] [id number] [address] [place] [address], [place] [address] Jan, [facility] [address] [id number] [address] [place] [address], [place] [address] Dec, [facility] [address] [id number] [address] [place] [address], [place] [address] Dec, [facility] [address] [id number] [address] [place] [address], [place] [address] Dec, [facility] [address] [id number] [address] [place] [address], [place] [address] Dec, [facility] [address] [id number] [address] [place] [address], [place] [address] Dec, [facility] [address] [id number] [address] [place] [address], [place] [address] Dec, [facility] [address] [id number] [address] [place] [address], [place] [address] Nov, [facility] [address] [id number] [address] [place] [address], [place] [address] Nov, [facility] [address] [id number] [address] [place] [address], [place] [address] Oct, [facility] [address] [id number] [address] [place] [address], [place] [address] Oct, [facility] [address] [id number] [address] [place] [address], [place] [address] Oct, [facility] [address] [id number] [address] [place] [address], [place] [address] Oct, [facility] [address] [id number] [address] [place] [address], [place] [address] Oct, [facility] [address] [id number] [address] [place] [address], [place] [address] Oct, [facility] [address] [id number] [address] [place] [address], [place] [address] Sep, [facility] [address] [id number] [address] [place] [address], [place] [address] Sep, [facility] [address] [id number] [address] [place] [address], [place] [address] Sep, [facility] [address] [id number] [address] [place] [address], [place] [address] Sep, [facility] [address] [id number] [address] [place] [address], [place] [address] Aug, [facility] [address] [id number] [address] [place] [address], [place] [address] Aug, [facility] [address] [id number] [address] [place] [address], [place] [address] Aug, [facility] [address] [id number] [address] [place] [address], [place] [address] Jul, [facility] [address] [id number] [address] [place] [address], [place] [address] 14 Jul, 2013 [facility] [address] [id number] [address] [place] [address], [place] [address] Jul, [facility] [address] [id number] [address] [place] [address], [place] [address] Jun, [facility] [address] [id number] [address] [place] [address], [place] [address] Jun, [facility] [address] [id number] [address] [place] [address], [place] [address] Jun, [facility] [address] [id number] [address] [place] [address], [place] [address] Apr, [facility] [address] [id number] [address] [place] [address], [place] [address] Apr, [facility] [address] [id number] [address] [place] [address], [place] [address] March, [facility] [address] [id number] [address] [place] [address], [place] [address] March, [facility] [address] [id number] [address] [place] [address], [place] [address] March, [facility] [address] [id number] [address] [place] [address], [place] [address] March, [facility] [address] [id number] [address] [place] [address], [place] [address] Feb, [facility] [address] [id number] [address] [place] [address], [place] [address] Jan, [facility] [address] [id number] [address] [place] [address], [place] [address] 13 Dec, 2012 [facility] [address] [id number] [address] [place] [address], [place] [address] 08 Dec, 2012 [facility] [address] [id number] [address] [place] [address], [place] [address] Dec, [facility] [address] [id number] [address] [place] [address], [place] [address] Nov, [facility] [address] [id number] [address] [place] [address], [place] [address] Oct, [facility] [address] [id number] [address] [place] [address], [place] [address] Oct, [facility] [address] [id number] [address] [place] [address], [place] [address] Sep, [facility] [address] [id number] [address] [place] [address], [place] [address] Sep, [facility] [address] [id number] [address] [place] [address], [place] [address] Sep, [facility] [address] [id number] [address] [place] [address], [place] [address] Sep, [facility] [address] [id number] [address] [place] [address], [place] [address] Sep, [facility] [address] [id number] [address] [place] [address], [place] [address] Sep, [facility] [address] [id number] [address] [place] [address], [place] [address] Sep, [facility] [address] [id number] [address] [place] [address], [place] [address] 16 Aug, 2012 [facility] [address] [id number] [address] [place] [address], [place] [address] 16 Aug, 2012 [facility] [address] [id number] [address] [place] [address], [place] [address] Aug, [facility] [address] [id number] [address] [place] [address], [place] [address] Aug, [facility] [address] [id number] [address] [place] [address], [place] [address] Aug, [facility] [address] [id number] [address] [place] [address], [place] [address] Aug, [facility] [address] [id number] [address] [place] [address], [place] [address] Aug, [facility] [address] [id number] [address] [place] [address], [place] [address] Aug, [facility] [address] [id number] [address] [place] [address], [place] [address] Jul, [facility] [address] [id number] [address] [place] [address], [place] [address] Jul, [facility] [address] [id number] [address] [place] [address], [place] [address] Jun, [facility] [address] [id number] [address] [place] [address], [place] [address] May, [facility] [address] [id number] [address] [place] [address], [place] [address] Apr, [facility] [address] [id number] [address] [place] [address], [place] [address] Apr, [facility] [address] [id number] [address] [place] [address], [place] [address] Apr, [facility] [address] [id number] [address] [place] [address], [place] [address] March, [facility] [address] [id number] [address] [place] [address], [place] [address] March, [facility] [address] [id number] [address] [place] [address], [place] [address] March, [facility] [address] [id number] [address] [place] [address], [place] [address] March, [facility] [address] [id number] [address] [place] [address], [place] [address] March, [facility] [address] [id number] [address] [place] [address], [place] [address] March, [facility] [address] [id number] [address] [place] [address], [place] [address] March, [facility] [address] [id number] [address] [place] [address], [place] [address] Jan, [facility] [address] [id number] [address] [place] [address], [place] [address] Jan, [facility] [address] [id number] [address] [place] [address], [place] [address] Jan, [facility] [address] [id number] [address] [place] [address], [place] [address] Jan, [facility] [address] [id number] [address] [place] [address], [place] [address] Jan, [facility] [address] [id number] [address] [place] [address], [place] [address] Dec, [facility] [address] [id number] [address] [place] [address], [place] [address] Dec, [facility] [address] [id number] [address] [place] [address], [place] [address] Nov, [facility] [address] [id number] [address] [place] [address], [place] [address] Nov, [facility] [address] [id number] [address] [place] [address], [place] [address] Nov, [facility] [address] [id number] [address] [place] [address], [place] [address] Nov, [facility] [address] [id number] [address] [place] [address], [place] [address] Oct, [facility] [address] [id number] [address] [place] [address], [place] [address] Oct, [facility] [address] [id number] [address] [place] [address], [place] [address] 14 Sep, 2011 [facility] [address] [id number] [address] [place] [address], [place] [address] Sep, [facility] [address] [id number] [address] [place] [address], [place] [address] Sep, [facility] [address] [id number] [address] [place] [address], [place] [address] May, [facility] [address] [id number] [address] [place] [address], [place] [address] Nov, [facility] [address] [id number] [address] [place] [address], [place] [address] Oct, [facility] [address] [id number] [address] [place] [address], [place] [address] Oct, [facility] [address] [id number] [address] [place] [address], [place] [address] Oct, [facility] [address] [id number] [address] [place] [address], [place] [address] Sep, [facility] [address] [id number] [address] [place] [address], [place] [address] Sep, [facility] [address] [id number] [address] [place] [address], [place] [address] Aug, [facility] [address] [id number] [address] [place] [address], [place] [address] March, [facility] [address] [id number] [address] [place] [address] Oct, [facility] [address] [id number] [address] [place] [address] Oct, [facility] [address] [id number] [address] [place] [address] Oct, [facility] [address] [id number] [address] [place] [address] Oct, [facility] [address] [id number] [address] [place] [address] Sep, [facility] [address] [id number] [address] [place] [id number] Sep, [facility] [address] [id number] [address] [place] [address] Sep, [facility] [address] [id number] [address] [place] [address] Aug, [facility] [address] [id number] [address] [place] [address] Aug, [facility] [address] [id number] [address] [place] [address] Aug, [facility] [address] [id number] [address] [place] [address] Jan, IMMUNIZATIONS No Known Immunizations SOCIAL HISTORY [...]
--- OUTSIDE RECORDS SUMMARY | 2020-06-13 16:07 | XMS REPORT ---
Author Author Jah Durant Doctor Organization [facility] Address Unknown Phone Unavailable Care Team Providers Care Career Services Representative Name Role Phone Migration, Doctor Unavailable Unavailable PROBLEMS Type Condition ICD9-CM Code [id number] Code Onset Dates Condition S tatus SNOMED Code Problem Neuropathy G62.9 Active 056153624 Problem Chronic pain G89.29 Active 8591595 1 Problem Overactive bladder N32.81 Active 2 87999081 Problem Hypothyroid E03.9 Active 74580703 Problem Irritable bowel syndrome with diarrhea K58.0 Active 420889394 Problem group home current use of insulin Z79.4 Active 509359336 Problem Type 2 diabetes mellitus with hyperglycemia E11.65 Active 98333634 Problem Chronic obstructive pulmonary disease, unspecified COPD ty pe J44.9 Active 25244866 Problem Gastroesophageal reflux disease with esophagitis K 21.0 Active 207981768 Problem Major depressive disorder, recurrent, in full remission F33.42 Active 28617004 Problem Mixed hyperlipidemia E78.2 Active 781278237 Problem Essential (primary) hypertension I10 Active 16314715 Problem Anxiety disorder, unspecified type F41.9 Active 252464468 Problem Gastroparesis K31.84 Active 359780 006 Problem 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 Active 773195410 ALLERGIES No Information ENCOUNTERS Encounter Location Date Diagnosis [place] [address] [address] [facility] [id number] [address] [place] [id number] Jun, Encounter for Medicare annua l wellness exam Z00.00 ; Type 2 diabetes mellitus with hyperglycemia E11.65 ; Mixed hyperlipidemia E78.2 ; Hypothyroid E03.9 ; Gastroesophageal reflux disease with esophagitis K21.0 ; Essential (primary) hypertension I10 ; Major depressive disorder, recurrent, in full remission F33.42 ; Chronic obstructive pulmonary disease, unspecified COPD type J44.9 ; Neuropathy G62.9 and Encounter for immunization Z23 [place] [id number] [facility] [id number] [address] [place] [address] Jun, [facility] [address] [facility] [id number] [address] [place] [address] May, Chronic pain G89.29 [facility] [address] [facility] [id number] [address] [place] [id number] May, Type 2 diabetes mellitus wit h hyperglycemia E11.65 and Neuropathy G62.9 [facility] [address] [facility] [id number] [address] [place] [address] May, Chronic pain G89.29 [facility] [address] [facility] [id number] [address] [place] [address] Apr, Poison maryam dermatitis L23.7 [facility] [address] [facility] [id number] [address] [place] [address] Apr, Chronic pain G89.29 [facility] [address] [facility] [id number] [address] [place] [address] March, Type 2 diabetes mellitus wit h hyperglycemia E11.65 [facility] [address] [facility] [id number] [address] [place] [id number] March, Chronic pain G89.29 [facility] [address] [facility] [id number] [address] [place] [address] March, [address] [address] Feb, [facility] [address] [facility] [id number] [address] [place] [id number] Feb, Other chronic pain G89.29 an d Chronic pain G89.29 [facility] [address] [facility] [id number] [address] [place] [phone] Jan, Mixed hyperlipidemia E78.2 [facility] [address] [facility] [id number] [address] [place] [address] Jan, Chronic pain G89.29 [facility] [address] [facility] [id number] [address] [place] [address] Jan, Type 2 diabetes mellitus wit h hyperglycemia E11.65 ; Mixed hyperlipidemia E78.2 ; 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 ; Acquired hypothyroidism E03.9 and Essential (primary) hypertension I10 [facility] [address] [place] [id number] [address] [place] [address] Dec, Chronic pain G89.29 [facility] [address] [place] [id number] [address] [place] [address] Nov, Chronic pain G89.29 [facility] [address] [place] [id number] [address] [place] [id number] Nov, [facility] [address] [address] Oct, Chronic pain G89.29 [facility] [address] [address] Oct, [facility] [address] [address] Sep, [facility] [address] [place] [id number] [address] [place] [id number] Sep, Type 2 diabetes mellitus wit h hyperglycemia E11.65 [place] [address] [address] [place] [id number] [address] [place] [id number] 16 Sep, 2018 Chronic pain G89.29 [facility] [address] [place] [id number] [address] [place] [address] Sep, [facility] [address] [place] [id number] [address] [place] [address] Sep, Type 2 diabetes mellitus wit h hyperglycemia E11.65 ; Irritable bowel syndrome with diarrhea K58.0 ; Gastroparesis K31.84 ; 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 and Dermatitis L30.9 [facility] [address] [place] [id number] [address] [place] [address] Aug, Chronic pain G89.29 [facility] [address] [place] [id number] [address] [place] [address] Jul, Chronic pain G89.29 [facility] [address] [facility] [id number] [address] [place] [address] Jun, Type 2 diabetes mellitus wit h hyperglycemia E11.65 ; Neuropathy G62.9 ; Recurrent major depressive disorder, in partial remission F33.41 ; Chronic pain G89.29 and Hypertriglyceridemia E78.1 [facility] [address] [facility] [id number] [address] [place] [address] Jun, Hypothyroid E03.9 [facility] [address] [facility] [id number] [address] [place] [address] Jun, Major depressive disorder, r ecurrent episode, moderate F33.1 and Anxiety disorder, unspecified type F41.9 [place] [address] [address] [place] [id number] [address] [place] [address] Jun, [place] [address] [address] [place] [id number] [address] [place] [address] Jun, Type 2 diabetes mellitus wit h hyperglycemia E11.65 ; 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 ; Recurrent major depressive disorder, in partial remission F33.41 ; Hypothyroid E03.9 ; Candidal dermatitis B37.2 and Weakness generalized R53.1 [place] [address] [facility] [id number] [address] [place] [address] May, [facility] [address] [facility] [id number] [address] [place] [address] May, [facility] [address] [facility] [id number] [address] [place] [id number] May, [facility] [address] [facility] [id number] [address] [place] [address] May, Generalized abdominal pain R 10.84 and Candidal dermatitis B37.2 [facility] [address] [facility] [id number] [address] [place] [address] May, [place] [address] [address] [facility] [id number] [address] [place] [id number] May, [place] [address] [address] [facility] [id number] [address] [place] [address] May, Nodular radiologic density R 93.8 ; Weight loss, unintentional R63.4 and Pulmonary emphysema, unspecified emphysema type J43.9 [place] [address] [address] [facility] [id number] [address] [place] [address] May, Chronic pain G89.29 [place] [address] [address] [facility] [id number] [address] [place] [phone] 09 May, 2018 Syncope and collapse R55 ; C hronic fatigue R53.[address] lung screening R91.8 [place] [address] [address] [facility] [id number] [address] [place] [address] May, [place] [address] [address] [place] [id number] [place] [address] Apr, Chronic fatigue R53.82 ; Abn ormal chest CT R93.8 ; Elevated erythrocyte sedimentation rate R70.0 ; Hypothyroid E03.9 and Recurrent major depressive disorder, in partial remission F33.41 [place] [address] [address] [facility] [id number] [address] [place] [address] Apr, Hypothyroid E03.9 [place] [address] [address] [place] [id number] [address] [place] [id number] Apr, Depression F32.9 [place] [address] [address] [facility] [id number] [address] [place] [address] Apr, [place] [address] [address] [facility] [id number] [address] [place] [address] March, [place] [address] [address] [facility] [id number] [address] [place] [phone] March, Hypothyroid E03.9 [place] [address] [address] [facility] [id number] [address] [place] [address] March, Diabetes mellitus E11.9 and Hypothyroid E03.9 [place] [address] [address] [facility] [id number] [address] [place] [id number] March, Diabetes mellitus E11.9 [place] [address] [address] [facility] [id number] [address] [place] [address] March, Hypothyroid E03.9 and Elevat ed liver enzymes R74.8 [place] [address] [address] [facility] [id number] [address] [place] [address] March, Type 2 diabetes mellitus wit h hyperglycemia E11.65 ; 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 ; Pulmonary emphysema, unspecified emphysema type J43.9 ; Hypothyroid E03.9 ; Neuropathy G62.9 ; Mixed hyperlipidemia E78.2 ; Chronic pain G89.29 ; Gastroesophageal reflux disease with esophagitis K21.0 ; Irritable bowel syndrome with diarrhea K58.0 ; Overactive bladder N32.81 and Recurrent major depressive disorder, in partial remission F33.41 [place] [address] [address] [place] [id number] [address] [place] [address] Feb, Chronic pain G89.29 [place] [address] [address] [place] [id number] [address] [place] [id number] Feb, Type 2 diabetes mellitus wit h hyperglycemia E11.65 and Skin lesion of scalp L98.9 [place] [address] [address] [place] [id number] [address] [place] [id number] Feb, [place] [address] [address] [place] [id number] [address] [place] [address] Jan, Type 2 diabetes mellitus wit h hyperglycemia E11.65 ; group home current use of insulin Z79.4 ; Essential (primary) hypertension I10 ; Pulmonary emphysema, unspecified emphysema type J43.9 ; Chronic pain G89.29 ; Controlled substance agreement signed Z79.899 ; Hypothyroid E03.9 ; Neuropathy G62.9 ; Gastroesophageal reflux disease with esophagitis K21.0 ; Overactive bladder N32.81 ; Depression F32.9 and Irritable bowel syndrome with diarrhea K58.0 [place] [address] [address] [facility] [id number] [address] [place] [address] Jan, [facility] [address] [id number] [address] [place] [address] Jan, Controlled substance agreeme nt signed Z79.899 [facility] [address] [facility] [id number] [address] [place] [phone] 08 Dec, 2017 Type 2 diabetes mellitus wit h hyperglycemia E11.65 ; Controlled substance agreement signed Z79.899 ; 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 ; Essential (primary) hypertension I10 ; Hypothyroid E03.9 ; Neuropathy G62.9 ; Depression F32.9 ; Mixed hyperlipidemia E78.2 ; Irritable bowel syndrome with diarrhea K58.0 ; Gastroesophageal reflux disease with esophagitis K21.0 ; Thrombocytosis D47.3 ; Current non-adherence to medical treatment Z91.19 and Overweight (BMI 25.0-29.9) E66.3 [place] [id number] [facility] [id number] [address] [place] [id number] 02 Dec, 2017 Controlled substance agreeme nt signed Z79.899 [place] [address] [facility] [id number] [address] [place] [phone] Nov, Type 2 diabetes mellitus wit h hyperglycemia E11.65 and Current non- adherence to medical treatment Z91.19 [place] [address] [facility] [id number] [address] [place] [address] Nov, [place] [address] [facility] [id number] [address] [place] [address] Nov, Chronic pain G89.29 [place] [address] [facility] [id number] [address] [place] [address] Nov, [place] [address] [address] [facility] [id number] [address] [place] [address] Nov, Hypothyroid E03.9 [place] [address] [address] [facility] [id number] [address] [place] [address] Nov, Hypothyroid E03.9 [place] [address] [address] Nov, Pulmonary emphysema, unspeci fied emphysema type J43.9 and Irritable bowel syndrome with diarrhea K58.0 [place] [address] [address] Oct, [place] [address] [address] Oct, [place] [address] [address] Oct, [place] [address] [address] Oct, [place] [address] [address] Oct, Chronic pain G89.29 [place] [address] [address] Oct, Diabetes mellitus E11.9 ; De pression F32.9 ; Mixed hyperlipidemia E78.2 ; Hypotension, unspecified hypotension type I95.9 ; Pulmonary emphysema, unspecified emphysema type J43.9 and Weight loss, unintentional R63.4 [place] [address] [address] Oct, Chronic pain G89.29 [place] [address] [address] Sep, Chronic pain G89.29 [place] [address] [address] Sep, Hypothyroid E03.9 and Diabet es mellitus E11.[address] [address] Aug, Type 2 diabetes mellitus wit h hyperglycemia E11.65 ; group home current use of insulin Z79.4 ; Essential (primary) hypertension I10 ; Hypothyroid E03.9 ; Neuropathy G62.9 ; Chronic pain G89.29 ; Mixed hy perlipidemia E78.2 and Encounter for immunization Z23 [facility] [address] [facility] [id number] [address] [place] [address] Aug, Chronic pain G89.29 [facility] [address] [facility] [id number] [address] [place] [address] Aug, Overactive bladder N32.81 ; Diabetes mellitus E11.9 and Chronic pain G89.29 [facility] [address] [facility] [id number] [address] [place] [id number] Jul, [facility] [address] [facility] [id number] [address] [place] [address] Jun, [facility] [address] [place] [id number] [address] [place] [phone] Jun, [facility] [address] [place] [id number] [address] [place] [address] Jun, Hypothyroid E03.9 [facility] [address] [facility] [id number] [address] [place] [phone] Jun, Diabetes mellitus E11.9 ; Hy pothyroid E03.9 ; Neuropathy G62.9 ; Chronic pain G89.29 and Neck mass R22.1 [facility] [address] [facility] [id number] [address] [place] [address] Apr, [facility] [address] [place] [id number] [address] [place] [address] Apr, Acute cystitis without hemat uria N30.00 [facility] [address] [facility] [id number] [address] [place] [phone] March, [facility] [address] [place] [id number] [address] [place] [phone] March, [facility] [address] [facility] [id number] [address] [place] [address] March, Near syncope R55 [facility] [address] [place] [id number] [place] [phone] Feb, [facility] [address] [facility] [id number] [address] [place] [address] Feb, Chronic pain G89.29 [facility] [address] [facility] [id number] [address] [place] [phone] Feb, [facility] [address] [facility] [id number] [address] [place] [address] Feb, [facility] [address] [facility] [id number] [address] [place] [address] Jan, Chronic pain G89.29 [facility] [address] [place] [id number] [address] [place] [address] Jan, [facility] [address] [place] [id number] [address] [place] [address] Jan, [facility] [id number] [place] [address] 14 Jan, 2017 Diabetes mellitus E11.9 ; Hy pothyroid E03.9 ; GERD (gastroesophageal reflux disease) K21.9 ; Insomnia G47.00 ; Functional 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 ; Neuropathy G62.9 ; Depression F32.9 ; Chronic pain G89.29 ; Irritable bowel syndrome with diarrhea K58.0 ; Overactive bladder N32.81 ; Mixed hyperlipidemia E78.2 and Bronchitis J40 [facility] [address] [facility] [id number] [address] [place] [phone] Dec, [facility] [address] [facility] [id number] [address] [place] [phone] Dec, [facility] [address] [place] [id number] [address] [place] [id number] Dec, [facility] [address] [place] [id number] [address] [place] [address] Dec, [facility] [address] [place] [id number] [address] [place] [address] Dec, Chronic pain G89.29 [facility] [id number] [place] [address] Dec, [facility] [address] [place] [id number] [address] [place] [address] Dec, [place] [address] [address] Dec, Type 2 diabetes mellitus wit h foot ulcer E11.621 [facility] [address] [place] [id number] [address] [place] [address] Dec, Type 2 diabetes mellitus wit h foot ulcer E11.621 [place] [address] [address] 14 Dec, 2016 HTN (hypertension) I10 ; Dep ression F32.9 ; Type 2 diabetes mellitus with foot ulcer E11.621 ; Functional 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 ; Irritable bowel syndrome with diarrhea K58.0 ; Chronic pain G89.29 ; Insomnia G47.00 ; Overactive bladder N32.81 ; Mixed hyperlipidemia E78.2 ; Gastroesophageal reflux disease with esophagitis K21.0 and Acquired hypothyroidism E03.9 [place] [place] [id number] [address] [place] [address] Nov, [place] [address] [address] Oct, [place] [address] [address] Oct, [place] [address] [address] Oct, [place] [address] [address] Sep, Functional 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 ; HTN (hypertension) I10 ; Diabetes mellitus E11.9 ; Depression F32.9 ; Overactive bladder N32.81 ; Mixed hyperlipidemia E78.2 ; Gastroesophageal reflux disease without esophagitis K21.9 ; Chronic pain G89.29 ; Insomnia G47.00 and Acquired hypothyroidism E03.9 [place] [address] [address] Sep, [place] [address] [address] Aug, Encounter for immunization Z 23 [place] [address] [address] Aug, [place] [address] [address] Jul, [place] [address] [address] Jun, Type 2 diabetes mellitus wit hout complications E11.9 ; HTN (hypertension) I10 ; Hypothyroid E03.9 ; Neuropathy G62.9 ; Depression F32.9 ; Chronic pain G89.29 ; GERD (gastroesophageal reflux disease) K21.9 ; Insomnia G47.00 ; Overactive bladder N32.81 ; Mixed hyperlipidemia E78.2 ; Diarrhea of infectious origin A09 and Environmental allergies Z91.09 [place] [address] [address] Apr, [place] [address] [address] March, Hypothyroidism, unspecified E03.9 and Mixed hyperlipidemia E78.2 [place] [address] [address] March, Diabetes mellitus E11.9 ; HT N (hypertension) I10 ; Hypothyroid E03.9 ; Depression F32.9 ; Overactive bladder N32.81 ; Other chronic pain G89.29 ; Lumbago with sciatica, unspecified side M54.40 ; Environmental allergies Z91.09 and Gastroesophageal reflux disease, esophagitis presence not specified K21.9 [place] [address] [address] March, [place] [address] [address] 11 Jan, 2016 HTN (hypertension) I10 ; Hyp othyroid E03.9 ; Neuropathy G62.9 ; Diabetes mellitus E11.9 ; Chronic pain G89.29 ; GERD (gastroesophageal reflux disease) K21.9 ; Overactive bladder N32.81 and Depression F32.9 [place] [address] [address] 12 Dec, 2015 Ear pain, left H92.02 ; HTN (hypertension) I10 ; Hypothyroid E03.9 ; Neuropathy G62.9 ; Diabetes mellitus E11.9 ; Depression F32.9 ; GERD (gastroesophageal reflux disease) K21.9 ; Insomnia G47.00 and Overactive bladder N32.81 [place] [address] [address] Nov, Overactive bladder N32.81 an d Chronic pain G89.29 [place] [address] [address] Nov, Kidney failure N19 [place] [address] [address] Nov, [place] [address] [address] Nov, [place] [address] [address] Nov, Diabetes mellitus E11.9 ; De pression F32.9 ; Chronic pain G89.29 ; GERD (gastroesophageal reflux disease) K21.9 ; Insomnia G47.00 ; HTN (hypertension) I10 ; Hypothyroid E03.9 ; COPD (chronic obstructive pulmonary disease) J44.9 ; Bladder incontinence R32 and Incontinence R32 [place] [address] [address] Sep, Type 2 diabetes mellitus wit h foot ulcer E11.621 and Chromosomal abnormality, 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 [place] [address] [address] Sep, [place] [address] [address] Aug, [place] [address] [address] Aug, [place] [address] [address] Aug, HTN (hypertension) I10 ; Enc ounter for immunization Z23 ; Hypothyroid E03.9 ; Neuropathy G62.9 ; Diabetes mellitus E11.9 ; Depression F32.9 ; Chronic pain G89.29 ; GERD (gastroesophageal reflux disease) K21.9 ; Insomnia G47.00 and COPD (chronic obstructive pulmonary disease) J44.9 [place] [address] [address] Jun, [address] [address] Jun, [place] [address] [address] May, Essential hypertension, ivis gn 401.1 ; Unspecified hypothyroidism 244.9 ; Insomnia, unspecified 780.52 ; Shortness of breath 786.05 ; Depression 311 ; COPD (chronic obstructive pulmonary disease) 496 ; GERD (gastroesophageal reflux disease) 530.81 and Diabetes 1.5, 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 [place] [address] [id number] May, [place] [address] [address] May, [address] [id number] May, Shortness of breath 786.05 ; Essential hypertension, benign 401.1 ; Diabetes mellitus 250.00 ; Hyperlipidemia 272.4 ; Hypothyroid 244.9 ; Insomnia 780.52 and Cough 786.[address] [id number] [address] [place] [id number] Apr, [facility] [address] [id number] [address] [place] [id number] March, Shortness of breath 786.05 ; Nausea with vomiting 787.01 ; Essential hypertension, benign 401.1 ; Diabetes mellitus 250.00 ; Hyperlipidemia 272.4 and Hypothyroid 244.9 [facility] [address] [id number] [address] [place] [id number] Feb, [facility] [address] [id number] [address] [place] [id number] Feb, [facility] [address] [id number] [address] [place] [id number] Jan, [facility] [address] [id number] [address] [place] [id number] Jan, [facility] [address] [id number] [address] [place] [phone] Jan, [facility] [address] [address] [id number] [address] [place] [address] Jan, [facility] [address] [id number] [address] [place] [address] Jan, [facility] [address] [id number] [address] [place] [address] Jan, [facility] [address] [id number] [address] [place] [address] Jan, [facility] [address] [id number] [address] [place] [address] Jan, [facility] [address] [id number] [address] [place] [address] Jan, [facility] [address] [id number] [address] [place] [address] Jan, [facility] [address] [id number] [address] [place] [id number] Dec, 2014 [facility] [address] [id number] [address] [place] [address], [place] [address] Dec, 2014 [facility] [address] [id number] [address] [place] [address], [place] [address] Dec, 2014 [facility] [address] [id number] [address] [place] [address], [place] [address] Dec, 2014 [facility] [address] [id number] [address] [place] [address], [place] [address] Dec, 2014 [facility] [address] [id number] [address] [place] [address], [place] [address] Dec, 2014 [facility] [address] [id number] [address] [place] [address], [place] [address] Dec, 2014 [facility] [address] [id number] [address] [place] [address], [place] [address] Dec, 2014 [facility] [address] [id number] [address] [place] [address], [place] [address] Dec, 2014 [facility] [address] [id number] [address] [place] [address], [place] [address] Dec, 2014 [facility] [address] [id number] [address] [place] [address], [place] [address] Oct, [facility] [address] [id number] [address] [place] [address], [place] [address] Oct, [facility] [address] [id number] [address] [place] [address], [place] [address] Oct, [facility] [address] [id number] [address] [place] [address], [place] [address] Oct, [facility] [address] [id number] [address] [place] [address], [place] [address] Oct, [facility] [address] [id number] [address] [place] [address], [place] [address] Oct, [facility] [address] [id number] [address] [place] [address], [place] [address] 05 Oct, 2014 [facility] [address] [id number] [address] [place] [address], [place] [address] Oct, [facility] [address] [id number] [address] [place] [address], [place] [address] Oct, [facility] [address] [id number] [address] [place] [address], [place] [address] Oct, [facility] [address] [id number] [address] [place] [address], [place] [address] Oct, [facility] [address] [id number] [address] [place] [address], [place] [address] Oct, [facility] [address] [id number] [address] [place] [address], [place] [address] Oct, [facility] [address] [id number] [address] [place] [address], [place] [address] Oct, [facility] [address] [id number] [address] [place] [address], [place] [address] Sep, [facility] [address] [id number] [address] [place] [address], [place] [address] Sep, [facility] [address] [id number] [address] [place] [address], [place] [address] Sep, [facility] [address] [id number] [address] [place] [address], [place] [address] Sep, [facility] [address] [id number] [address] [place] [address], [place] [address] Sep, [facility] [address] [id number] [address] [place] [address], [place] [address] Sep, [facility] [address] [id number] [address] [place] [address], [place] [address] Sep, [facility] [address] [id number] [address] [place] [address] Sep, [facility] [address] [id number] [address] [place] [address], [place] [address] Sep, [facility] [address] [id number] [address] [place] [address], [place] [address] Aug, [facility] [address] [id number] [address] [place] [address], [place] [address] Aug, [facility] [address] [id number] [address] [place] [address], [place] [address] Aug, [facility] [address] [id number] [address] [place] [address], [place] [address] 17 Aug, 2014 [facility] [address] [id number] [address] [place] [address], [place] [address] 16 Aug, 2014 [facility] [address] [id number] [address] [place] [address], [place] [address] Aug, [facility] [address] [id number] [address] [place] [address], [place] [address] Aug, [facility] [address] [id number] [address] [place] [address], [place] [address] Aug, [facility] [address] [id number] [address] [place] [address] Aug, [facility] [address] [id number] [address] [place] [address], [place] [address] 29 Jul, 2013 [facility] [address] [id number] [address] [place] [address] 29 Jul, 2013 [facility] [address] [id number] [address] [place] [address], [place] [address] 25 Jul, 2013 [facility] [address] [id number] [address] [place] [address], [place] [address] 25 Jul, 2013 [facility] [address] [id number] [address] [place] [address], [place] [address] 25 Jul, 2013 [facility] [address] [id number] [facility] [place] [address] Jul, 2013 [facility] [address] [id number] [facility] [place] [address] Jul, [facility] [address] [id number] [facility] [place] [address] Jul, [facility] [address] [id number] [facility] [place] [address] Jul, [facility] [address] [id number] [facility] [place] [address] Jul, [facility] [address] [id number] [address] [place] [address], [place] [address] Jun, [facility] [address] [id number] [address] [place] [address], [place] [address] Jun, [facility] [address] [id number] [address] [place] [address], [place] [address] Jun, [facility] [address] [id number] [address] [place] [address], [place] [address] Jun, [facility] [address] [id number] [address] [place] [address], [place] [address] Jun, [facility] [address] [id number] [address] [place] [address], [place] [address] Jun, [facility] [address] [id number] [address] [place] [address], [place] [address] Jun, [facility] [address] [id number] [address] [place] [address], [place] [address] Jun, [facility] [address] [id number] [address] [place] [address], [place] [address] Jun, [facility] [address] [id number] [address] [place] [address], [place] [address] Jun, [facility] [address] [id number] [address] [place] [address], [place] [address] Jun, [facility] [address] [id number] [facility] [place] [address] Jun, [facility] [address] [id number] [address] [place] [address], [place] [address] May, [facility] [address] [id number] [address] [place] [address], [place] [address] May, [facility] [address] [id number] [address] [place] [address], [place] [address] May, [facility] [address] [id number] [address] [place] [address], [place] [address] May, [facility] [address] [id number] [address] [place] [address], [place] [address] May, [facility] [address] [id number] [address] [place] [address], [place] [address] May, [facility] [address] [id number] [address] [place] [address], [place] [address] March, [facility] [address] [id number] [address] [place] [address], [place] [address] March, [facility] [address] [id number] [address] [place] [address], [place] [address] March, [facility] [address] [id number] [address] [place] [address], [place] [address] March, [facility] [address] [id number] [address] [place] [address], [place] [address] March, [facility] [address] [id number] [address] [place] [address], [place] [address] March, [facility] [address] [id number] [address] [place] [address], [place] [address] Feb, [facility] [address] [id number] [address] [place] [address], [place] [address] Feb, [facility] [address] [id number] [facility] [place] [address] Feb, [facility] [address] [id number] [address] [place] [address], [place] [address] Feb, [facility] [address] [id number] [address] [place] [address], [place] [address] Jan, [facility] [address] [id number] [address] [place] [address], [place] [address] Jan, [facility] [address] [id number] [address] [place] [address], [place] [address] Jan, [facility] [address] [id number] [address] [place] [address], [place] [address] Jan, [facility] [address] [id number] [address] [place] [address], [place] [address] Jan, [facility] [address] [id number] [address] [place] [address], [place] [address] Jan, [facility] [address] [id number] [address] [place] [address], [place] [address] Jan, [facility] [address] [id number] [address] [place] [address], [place] [address] Jan, [facility] [address] [id number] [address] [place] [address], [place] [address] Jan, [facility] [address] [id number] [address] [place] [address], [place] [address] Jan, [facility] [address] [id number] [address] [place] [address], [place] [address] Jan, [facility] [address] [id number] [address] [place] [address], [place] [address] Jan, [facility] [address] [id number] [address] [place] [address], [place] [address] Dec, [facility] [address] [id number] [address] [place] [address], [place] [address] Dec, [facility] [address] [id number] [address] [place] [address], [place] [address] Dec, [facility] [address] [id number] [address] [place] [address], [place] [address] Dec, [facility] [address] [id number] [address] [place] [address], [place] [address] Dec, [facility] [address] [id number] [address] [place] [address], [place] [address] Dec, [facility] [address] [id number] [address] [place] [address], [place] [address] Nov, [facility] [address] [id number] [address] [place] [address], [place] [address] Nov, [facility] [address] [id number] [address] [place] [address], [place] [address] Oct, [facility] [address] [id number] [address] [place] [address], [place] [address] Oct, [facility] [address] [id number] [address] [place] [address], [place] [address] Oct, [facility] [address] [id number] [address] [place] [address], [place] [address] Oct, [facility] [address] [id number] [address] [place] [address], [place] [address] Oct, [facility] [address] [id number] [address] [place] [address], [place] [address] Oct, [facility] [address] [id number] [address] [place] [address], [place] [address] Sep, [facility] [address] [id number] [address] [place] [address], [place] [address] Sep, [facility] [address] [id number] [address] [place] [address], [place] [address] Sep, [facility] [address] [id number] [address] [place] [address], [place] [address] Sep, [facility] [address] [id number] [address] [place] [address], [place] [address] Aug, [facility] [address] [id number] [address] [place] [address], [place] [address] Aug, [facility] [address] [id number] [address] [place] [address], [place] [address] Aug, [facility] [address] [id number] [address] [place] [address], [place] [address] Jul, [facility] [address] [id number] [address] [place] [address], [place] [address] 14 Jul, 2013 [facility] [address] [id number] [address] [place] [address], [place] [address] Jul, [facility] [address] [id number] [address] [place] [address], [place] [address] Jun, [facility] [address] [id number] [address] [place] [address], [place] [address] Jun, [facility] [address] [id number] [address] [place] [address], [place] [address] Jun, [facility] [address] [id number] [address] [place] [address], [place] [address] Apr, [facility] [address] [id number] [address] [place] [address], [place] [address] Apr, [facility] [address] [id number] [address] [place] [address], [place] [address] March, [facility] [address] [id number] [address] [place] [address], [place] [address] March, [facility] [address] [id number] [address] [place] [address], [place] [address] March, [facility] [address] [id number] [address] [place] [address], [place] [address] March, [facility] [address] [id number] [address] [place] [address], [place] [address] Feb, [facility] [address] [id number] [address] [place] [address], [place] [address] Jan, [facility] [address] [id number] [address] [place] [address], [place] [address] 13 Dec, 2012 [facility] [address] [id number] [address] [place] [address], [place] [address] 08 Dec, 2012 [facility] [address] [id number] [address] [place] [address], [place] [address] Dec, [facility] [address] [id number] [address] [place] [address], [place] [address] Nov, [facility] [address] [id number] [address] [place] [address], [place] [address] Oct, [facility] [place] [address] [id number] [address] [place] [address], [place] [address] Oct, [facility] [place] [address] [id number] [address] [place] [address], [place] [address] Sep, [facility] [place] [address] [id number] [address] [place] [address], [place] [address] Sep, [facility] [address] [id number] [address] [place] [address], [place] [address] Sep, [facility] [address] [id number] [address] [place] [address], [place] [address] Sep, [facility] [address] [id number] [address] [place] [address], [place] [address] Sep, [facility] [address] [id number] [address] [place] [address], [place] [address] Sep, [facility] [address] [id number] [address] [place] [address], [place] [address] Sep, [facility] [address] [id number] [address] [place] [address], [place] [address] 16 Aug, 2012 [facility] [address] [id number] [address] [place] [address], [place] [address] 16 Aug, 2012 [facility] [address] [id number] [address] [place] [address], [place] [address] Aug, [facility] [address] [id number] [address] [place] [address], [place] [address] Aug, [facility] [address] [id number] [address] [place] [address], [place] [address] Aug, [facility] [address] [id number] [address] [place] [address], [place] [address] Aug, [facility] [address] [id number] [address] [place] [address], [place] [address] Aug, [facility] [address] [id number] [address] [place] [address], [place] [address] Aug, [facility] [address] [id number] [address] [place] [address], [place] [address] Jul, [facility] [address] [id number] [address] [place] [address], [place] [address] Jul, [facility] [address] [id number] [address] [place] [address], [place] [address] Jun, [facility] [address] [id number] [address] [place] [address], [place] [address] May, [facility] [address] [id number] [address] [place] [address], [place] [address] Apr, [facility] [address] [id number] [address] [place] [address], [place] [address] Apr, [facility] [address] [id number] [address] [place] [address], [place] [address] Apr, [facility] [address] [id number] [address] [place] [address], [place] [address] March, [facility] [address] [id number] [address] [place] [address], [place] [address] March, [facility] [address] [id number] [address] [place] [address], [place] [address] March, [facility] [address] [id number] [address] [place] [address], [place] [address] March, [facility] [address] [id number] [address] [place] [address], [place] [address] March, [facility] [address] [id number] [address] [place] [address], [place] [address] March, [facility] [address] [id number] [address] [place] [address], [place] [address] March, [facility] [address] [id number] [address] [place] [address], [place] [address] Jan, [facility] [address] [id number] [address] [place] [address], [place] [address] Jan, [facility] [address] [id number] [address] [place] [address], [place] [address] Jan, [facility] [address] [id number] [address] [place] [address], [place] [address] Jan, [facility] [address] [id number] [address] [place] [address], [place] [address] Jan, [facility] [address] [id number] [address] [place] [address], [place] [address] Dec, [facility] [address] [id number] [address] [place] [address], [place] [address] Dec, [facility] [address] [id number] [address] [place] [address], [place] [address] Nov, [facility] [address] [id number] [address] [place] [address], [place] [address] Nov, [facility] [address] [id number] [address] [place] [address], [place] [address] Nov, [facility] [address] [id number] [address] [place] [address], [place] [address] Nov, [facility] [address] [id number] [address] [place] [address], [place] [address] Oct, [facility] [address] [id number] [address] [place] [address], [place] [address] Oct, [facility] [address] [id number] [address] [place] [address], [place] [address] 14 Sep, 2011 [facility] [address] [id number] [address] [place] [address], [place] [address] Sep, [facility] [address] [id number] [address] [place] [address], [place] [address] Sep, [facility] [address] [id number] [address] [place] [address], [place] [address] May, [facility] [address] [id number] [address] [place] [address], [place] [address] Nov, [facility] [address] [id number] [address] [place] [address], [place] [address] Oct, [facility] [address] [id number] [address] [place] [address], [place] [address] Oct, [facility] [address] [id number] [address] [place] [address], [place] [address] Oct, [facility] [address] [id number] [address] [place] [address], [place] [address] Sep, [facility] [address] [id number] [address] [place] [address], [place] [address] Sep, [facility] [address] [id number] [address] [place] [address], [place] [address] Aug, [facility] [address] [id number] [address] [place] [address], [place] [address] March, [facility] [address] [id number] [address] [place] [id number] Oct, [facility] [address] [id number] [address] [place] [address] Oct, [facility] [address] [id number] [address] [place] [id number] Oct, [facility] [address] [id number] [address] [place] [address] Oct, [facility] [address] [id number] [address] [place] [id number] Sep, [facility] [address] [id number] [address] [place] [id number] Sep, [facility] [address] [id number] [address] [place] [address] Sep, [facility] [address] [id number] [address] [place] [id number] Aug, [facility] [address] [id number] [address] [place] [id number] Aug, [facility] [address] [id number] [address] [place] [address] Aug, [facility] [address] [id number] [address] [place] [id number] Jan, IMMUNIZATIONS No Known Immunizations SOCIAL HISTORY [...]
--- OUTSIDE RECORDS SUMMARY | 2020-06-13 16:08 | XMS REPORT ---
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 Name Role Phone Migration, Doctor Unavailable Unavailable PROBLEMS Type Condition ICD9-CM Code YEF17-VQ Code Onset Dates Condition S tatus SNOMED Code Problem Hypothyroid E03.9 Active 68221450 Problem Neuropathy G62.9 Active 575229425 Problem Mixed hyperlipidemia E78.2 Active 550314772 Problem Overactive bladder N32.81 Active 2 82202934 Problem Irritable bowel syndrome with diarrhea K58.0 Active 966525643 Problem Gastroesophageal reflux disease with esophagitis K 21.0 Active 034371504 Problem Type 2 diabetes mellitus with hyperglycemia E11.65 Active 03630813 Problem [facility] current use of insulin Z79.4 Active 173750906 Problem Current non-adherence to medical treatment Z91.19 Active 0746914 Problem Recurrent major depressive disorder, in partial remission F33.41 Active 98732056 Problem Chronic fatigue R53.82 Active 8422 9001 Problem 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 Active 419741301 Problem Pulmonary emphysema, unspecified emphysema type J4 3.9 Active 79761984 Problem Thrombocytosis D47.3 Active 95121 09 Problem Acquired hypothyroidism E03.9 Active 567211836 Problem Essential (primary) hypertension I10 Active 94195545 Problem Chronic pain G89.29 Active 1055311 1 Problem Anxiety disorder, unspecified type F41.9 Active 169163860 Problem Major depressive disorder, recurrent episode, moderate F33.1 Active 666484303 Problem Hypertriglyceridemia E78.1 Active 986204845 Problem Gastroparesis K31.84 Active 047953 006 ALLERGIES No Information ENCOUNTERS Encounter Location Date Diagnosis [facility] [address] [facility] [id number] [address] [place] [phone] Jun, [facility] [address] [facility] [id number] [address] [place] [id number] May, Chronic pain G89.29 [facility] [address] [facility] [id number] [address] [place] [phone] May, Type 2 diabetes mellitus wit h hyperglycemia E11.65 and Neuropathy G62.9 [place] [address] [facility] [id number] [address] [place] [phone] May, Chronic pain G89.29 [facility] [address] [facility] [id number] [address] [place] [phone] Apr, Poison maryam dermatitis L23.7 [facility] [address] [facility] [id number] [address] [place] [id number] Apr, Chronic pain G89.29 [place] [address] [facility] [id number] [address] [place] [id number] March, Type 2 diabetes mellitus wit h hyperglycemia E11.65 [place] [address] [facility] [id number] [address] [place] [id number] March, Chronic pain G89.29 [place] [address] [facility] [id number] [address] [place] [phone] March, [address] [address] Feb, [place] [address] [facility] [id number] [address] [place] [phone] Feb, Other chronic pain G89.29 an d Chronic pain G89.29 [place] [address] [facility] [id number] [address] [place] [phone] Jan, Mixed hyperlipidemia E78.2 [place] [address] [facility] [id number] [address] [place] [phone] Jan, Chronic pain G89.29 [place] [address] [facility] [id number] [address] [place] [phone] Jan, Type 2 diabetes mellitus wit h hyperglycemia E11.65 ; Mixed hyperlipidemia E78.2 ; 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 ; Acquired hypothyroidism E03.9 and Essential (primary) hypertension I10 [place] [address] [facility] [id number] [address] [place] [id number] 11 Dec, 2018 Chronic pain G89.29 [facility] [address] [facility] [id number] [address] [place] [id number] Nov, Chronic pain G89.29 [facility] [address] [facility] [id number] [address] [place] [id number] Nov, [facility] [address] [facility] [id number] [address] [place] [phone] Oct, Chronic pain G89.29 [facility] [address] [facility] [id number] [address] [place] [id number] Oct, [facility] [address] [facility] [id number] [address] [place] [id number] Sep, [facility] [address] [facility] [id number] [address] [place] [phone] Sep, Type 2 diabetes mellitus wit h hyperglycemia E11.65 [facility] [address] [facility] [id number] [address] [place] [id number] 16 Sep, 2018 Chronic pain G89.29 [facility] [address] [facility] [id number] [address] [place] [phone] Sep, [facility] [address] [facility] [id number] [address] [place] [phone] Sep, Type 2 diabetes mellitus wit h hyperglycemia E11.65 ; Irritable bowel syndrome with diarrhea K58.0 ; Gastroparesis K31.84 ; 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 and Dermatitis L30.9 [facility] [address] [facility] [id number] [address] [place] [phone] Aug, Chronic pain G89.29 [facility] [address] [facility] [id number] [address] [place] [phone] Jul, Chronic pain G89.29 [facility] [address] [facility] [id number] [address] [place] [phone] Jun, Type 2 diabetes mellitus wit h hyperglycemia E11.65 ; Neuropathy G62.9 ; Recurrent major depressive disorder, in partial remission F33.41 ; Chronic pain G89.29 and Hypertriglyceridemia E78.1 [facility] [address] [facility] [id number] [address] [place] [phone] Jun, Hypothyroid E03.9 [facility] [address] [facility] [id number] [address] [place] [phone] Jun, Major depressive disorder, r ecurrent episode, moderate F33.1 and Anxiety disorder, unspecified type F41.9 [facility] [address] [facility] [id number] [address] [place] [phone] Jun, [facility] [address] [place] [id number] [address] [place] [phone] Jun, Type 2 diabetes mellitus wit h hyperglycemia E11.65 ; [facility] current use of insulin Z79.4 ; Recurrent major depressive disorder, in partial remission F33.41 ; Hypothyroid E03.9 ; Candidal dermatitis B37.2 and Weakness generalized R53.1 [facility] [address] [facility] [id number] [address] [place] [phone] May, [facility] [address] [facility] [id number] [address] [place] [id number] May, [facility] [address] [facility] [id number] [address] [place] [phone] May, [facility] [address] [facility] [id number] [address] [place] [phone] May, Generalized abdominal pain R 10.84 and Candidal dermatitis B37.2 [facility] [address] [facility] [id number] [address] [place] [phone] May, [facility] [address] [facility] [id number] [address] [place] [phone] May, [facility] [address] [place] [id number] [address] [place] [phone] May, Nodular radiologic density R 93.8 ; Weight loss, unintentional R63.4 and Pulmonary emphysema, unspecified emphysema type J43.9 [facility] [address] [facility] [id number] [address] [place] [phone] 10 May, 2018 Chronic pain G89.29 [facility] [address] [facility] [id number] [address] [place] [phone] 09 May, 2018 Syncope and collapse R55 ; C hronic fatigue R53.[address] lung screening R91.8 [facility] [address] [id number] [address] [place] [phone] May, [facility] [address] [facility] [id number] [address] [place] [id number] Apr, Chronic fatigue R53.82 ; Abn ormal chest CT R93.8 ; Elevated erythrocyte sedimentation rate R70.0 ; Hypothyroid E03.9 and Recurrent major depressive disorder, in partial remission F33.41 [place] [id number] [facility] [id number] [address] [place] [phone] Apr, Hypothyroid E03.9 [place] [address] [facility] [id number] [address] [place] [id number] Apr, Depression F32.9 [facility] [address] [facility] [id number] [address] [place] [phone] Apr, [facility] [address] [facility] [id number] [address] [place] [phone] March, [facility] [address] [facility] [id number] [address] [place] [phone] March, Hypothyroid E03.9 [place] [address] [facility] [id number] [address] [place] [id number] March, Diabetes mellitus E11.9 and Hypothyroid E03.9 [facility] [address] [facility] [id number] [address] [place] [phone] March, Diabetes mellitus E11.9 [facility] [address] [place] [id number] [address] [place] [phone] March, Hypothyroid E03.9 and Elevat ed liver enzymes R74.8 [place] [id number] [address] [place] [phone] March, Type 2 diabetes mellitus wit h hyperglycemia E11.65 ; [facility] current use of insulin Z79.4 ; Pulmonary emphysema, unspecified emphysema type J43.9 ; Hypothyroid E03.9 ; Neuropathy G62.9 ; Mixed hyperlipidemia E78.2 ; Chronic pain G89.29 ; Gastroesophageal reflux disease with esophagitis K21.0 ; Irritable bowel syndrome with diarrhea K58.0 ; Overactive bladder N32.81 and Recurrent major depressive disorder, in partial remission F33.[address] [address] Feb, Chronic pain G89.[address] [address] Feb, Type 2 diabetes mellitus wit h hyperglycemia E11.65 and Skin lesion of scalp L98.[address] [phone] Feb, [place] [id number] [address] [place] [phone] Jan, Type 2 diabetes mellitus wit h [...] and Irritable bowel syndrome with diarrhea K58.0 [place] [id number] [address] [place] [phone] Jan, [place] [id number] [address] [place] [phone] Jan, Controlled substance agreeme nt signed Z79.899 [facility] [address] [id number] [address] [place] [id number] 08 Dec, 2017 Type 2 diabetes mellitus [...] treatment Z91.19 and Overweight (BMI 25.0-29.9) E66.3 [place] [address] [facility] [id number] [address] [place] [id number] 02 Dec, 2017 Controlled substance agreeme nt signed Z79.899 [place] [address] [facility] [id number] [address] [place] [id number] Nov, Type 2 diabetes mellitus wit h hyperglycemia E11.65 and Current non- adherence to medical treatment Z91.19 [place] [id number] [id number] [address] [place] [phone] Nov, [place] [address] [facility] [id number] [address] [place] [phone] Nov, Chronic pain G89.29 [place] [address] [facility] [id number] [address] [place] [phone] Nov, [place] [id number] [facility] [id number] [address] [place] [phone] Nov, Hypothyroid E03.9 [place] [address] [facility] [id number] [address] [place] [phone] Nov, Hypothyroid E03.9 [place] [id number] [facility] [id number] [address] [place] [phone] Nov, Pulmonary emphysema, unspeci fied emphysema type J43.9 and Irritable bowel syndrome with diarrhea K58.0 [place] [address] [facility] [id number] [address] [place] [phone] Oct, [place] [address] [place] [id number] [place] [phone] Oct, [place] [address] [facility] [id number] [place] [phone] Oct, [place] [address] [place] [id number] [place] [id number] Oct, [place] [address] [place] [id number] [place] [address] Oct, Chronic pain G89.29 [place] [address] [place] [id number] [place] [phone] Oct, Diabetes mellitus E11.9 ; De pression F32.9 ; Mixed hyperlipidemia E78.2 ; Hypotension, unspecified hypotension type I95.9 ; Pulmonary emphysema, unspecified emphysema type J43.9 and Weight loss, unintentional R63.[address] [place] [address] [id number] Oct, Chronic pain G89.29 [place] [address] [id number] Sep, Chronic pain G89.29 [place] [address] [id number] Sep, Hypothyroid E03.9 and Diabet es mellitus E11.9 [place] [address] [place] [id number] [address] [place] [phone] Aug, Type 2 diabetes mellitus wit h hyperglycemia E11.65 ; [facility] current use of insulin Z79.4 ; Essential (primary) hypertension I10 ; Hypothyroid E03.9 ; Neuropathy G62.9 ; Chronic pain G89.29 ; Mixed hy perlipidemia E78.2 and Encounter for immunization Z23 [place] [address] [place] [id number] [address] [place] [phone] Aug, Chronic pain G89.29 [facility] [address] [facility] [id number] [address] [place] [phone] Aug, Overactive bladder N32.81 ; Diabetes mellitus E11.9 and Chronic pain G89.29 [facility] [address] [id number] [address] [place] [phone] Jul, [facility] [address] [facility] [id number] [address] [place] [phone] Jun, [facility] [address] [id number] [address] [place] [phone] Jun, [facility] [address] [facility] [id number] [address] [place] [phone] Jun, Hypothyroid E03.9 [facility] [address] [facility] [id number] [address] [place] [id number] Jun, Diabetes mellitus E11.9 ; Hy pothyroid E03.9 ; Neuropathy G62.9 ; Chronic pain G89.29 and Neck mass R22.1 [facility] [address] [facility] [id number] [address] [place] [phone] Apr, [facility] [address] [facility] [id number] [address] [place] [phone] Apr, Acute cystitis without hemat uria N30.00 [facility] [address] [facility] [id number] [address] [place] [phone] March, [facility] [address] [facility] [id number] [address] [place] [phone] March, [facility] [address] [facility] [id number] [address] [place] [phone] March, Near syncope R55 [facility] [address] [facility] [id number] [address] [place] [phone] Feb, [facility] [address] [facility] [id number] [address] [place] [phone] Feb, Chronic pain G89.29 [facility] [address] [facility] [id number] [address] [place] [id number] Feb, [facility] [address] [place] [id number] [address] [place] [phone] Feb, [facility] [address] [facility] [id number] [address] [place] [phone] Jan, Chronic pain G89.29 [facility] [address] [place] [id number] [address] [place] [phone] Jan, [facility] [address] [place] [id number] [address] [place] [phone] Jan, [facility] [address] [place] [id number] [address] [place] [id number] Jan, Diabetes mellitus E11.9 ; Hy pothyroid E03.9 ; GERD (gastroesophageal reflux disease) K21.9 ; Insomnia G47.00 ; Functional 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 ; Neuropathy G62.9 ; Depression F32.9 ; Chronic pain G89.29 ; Irritable bowel syndrome with diarrhea K58.0 ; Overactive bladder N32.81 ; Mixed hyperlipidemia E78.2 and Bronchitis J40 [facility] [address] [place] [id number] [address] [place] [phone] Dec, [facility] [address] [place] [id number] [address] [place] [phone] Dec, [facility] [address] [place] [id number] [address] [place] [phone] Dec, [facility] [address] [facility] [id number] [address] [place] [phone] Dec, [facility] [address] [place] [id number] [address] [place] [id number] Dec, Chronic pain G89.29 [facility] [address] [place] [id number] [address] [place] [phone] Dec, [facility] [address] [place] [id number] [address] [place] [phone] Dec, [place] [address] [address] Dec, Type 2 diabetes mellitus wit h foot ulcer E11.621 [place] [address] [place] [id number] [address] [place] [phone] 17 Dec, 2016 Type 2 diabetes mellitus wit h foot ulcer E11.621 [place] [address] [id number] 14 Dec, 2016 HTN (hypertension) I10 ; Dep ression F32.9 ; Type 2 diabetes mellitus with foot ulcer E11.621 ; Functional 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 ; Irritable bowel syndrome with diarrhea K58.0 ; Chronic pain G89.29 ; Insomnia G47.00 ; Overactive bladder N32.81 ; Mixed hyperlipidemia E78.2 ; Gastroesophageal reflux disease with esophagitis K21.0 and Acquired hypothyroidism E03.9 [place] [address] [address] Nov, [place] [address] [address] Oct, [place] [address] [address] Oct, [place] [address] [id number] Oct, [place] [address] [address] Sep, Functional 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 ; HTN (hypertension) I10 ; Diabetes mellitus E11.9 ; Depression F32.9 ; Overactive bladder N32.81 ; Mixed hyperlipidemia E78.2 ; Gastroesophageal reflux disease without esophagitis K21.9 ; Chronic pain G89.29 ; Insomnia G47.00 and Acquired hypothyroidism E03.9 [place] [address] [address] Sep, [place] [address] [address] 11 Aug, 2016 Encounter for immunization Z 23 [place] [address] [id number] 06 Aug, 2016 [place] [address] [address] Jul, [place] [address] [address] Jun, Type 2 diabetes mellitus wit hout complications E11.9 ; HTN (hypertension) I10 ; Hypothyroid E03.9 ; Neuropathy G62.9 ; Depression F32.9 ; Chronic pain G89.29 ; GERD (gastroesophageal reflux disease) K21.9 ; Insomnia G47.00 ; Overactive bladder N32.81 ; Mixed hyperlipidemia E78.2 ; Diarrhea of infectious origin A09 and Environmental allergies Z91.09 [place] [address] [address] Apr, [place] [address] [address] March, Hypothyroidism, unspecified E03.9 and Mixed hyperlipidemia E78.2 [place] [address] [address] March, Diabetes mellitus E11.9 ; HT N (hypertension) I10 ; Hypothyroid E03.9 ; Depression F32.9 ; Overactive bladder N32.81 ; Other chronic pain G89.29 ; Lumbago with sciatica, unspecified side M54.40 ; Environmental allergies Z91.09 and Gastroesophageal reflux disease, esophagitis presence not specified K21.9 [place] [address] [id number] March, [place] [address] [id number] Jan, HTN (hypertension) I10 ; Hyp othyroid E03.9 ; Neuropathy G62.9 ; Diabetes mellitus E11.9 ; Chronic pain G89.29 ; GERD (gastroesophageal reflux disease) K21.9 ; Overactive bladder N32.81 and Depression F32.9 [place] [id number] [place] [id number] [address] [place] [id number] 12 Dec, 2015 Ear pain, left H92.02 ; HTN (hypertension) I10 ; Hypothyroid E03.9 ; Neuropathy G62.9 ; Diabetes mellitus E11.9 ; Depression F32.9 ; GERD (gastroesophageal reflux disease) K21.9 ; Insomnia G47.00 and Overactive bladder N32.81 [place] [address] [facility] [id number] [address] [place] [phone] 14 Nov, 2015 Overactive bladder N32.81 an d Chronic pain G89.29 [place] [address] [place] [id number] [address] [place] [phone] Nov, Kidney failure N19 [place] [address] [place] [id number] [address] [place] [phone] Nov, [place] [address] [place] [id number] [address] [place] [id number] Nov, [place] [address] [place] [id number] [place] [phone] Nov, Diabetes mellitus E11.9 ; De pression F32.9 ; Chronic pain G89.29 ; GERD (gastroesophageal reflux disease) K21.9 ; Insomnia G47.00 ; HTN (hypertension) I10 ; Hypothyroid E03.9 ; COPD (chronic obstructive pulmonary disease) J44.9 ; Bladder incontinence R32 and Incontinence R32 [place] [address] [facility] [id number] [address] [place] [id number] Sep, Type 2 diabetes mellitus wit h foot ulcer E11.621 and Chromosomal abnormality, 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 [place] [address] [place] [id number] [address] [place] [phone] Sep, [place] [address] [place] [id number] [address] [place] [phone] Aug, [address] [address] Aug, [address] [address] Aug, HTN (hypertension) I10 ; Enc ounter for immunization Z23 ; Hypothyroid E03.9 ; Neuropathy G62.9 ; Diabetes mellitus E11.9 ; Depression F32.9 ; Chronic pain G89.29 ; GERD (gastroesophageal reflux disease) K21.9 ; Insomnia G47.00 and COPD (chronic obstructive pulmonary disease) J44.[address] [address] Jun, [address] [address] Jun, [address] [address] May, Essential hypertension, ivis gn 401.1 ; Unspecified hypothyroidism 244.9 ; Insomnia, unspecified 780.52 ; Shortness of breath 786.05 ; Depression 311 ; COPD (chronic obstructive pulmonary disease) 496 ; GERD (gastroesophageal reflux disease) 530.81 and Diabetes 1.5, 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 [address] May, [address] [id number] May, [address] [id number] May, Shortness of breath 786.05 ; Essential hypertension, benign 401.1 ; Diabetes mellitus 250.00 ; Hyperlipidemia 272.4 ; Hypothyroid 244.9 ; Insomnia 780.52 and Cough 786.[address] [id number] Apr, [address] [id number] March, Shortness of breath 786.05 ; Nausea with vomiting 787.01 ; Essential hypertension, benign 401.1 ; Diabetes mellitus 250.00 ; Hyperlipidemia 272.4 and Hypothyroid 244.9 [facility] [address] [id number] [address] [place] [id number] 14 Feb, 2015 [facility] [address] [id number] [address] [place] [id number] Feb, [facility] [address] [id number] [address] [place] [phone] Jan, [facility] [address] [id number] [address] [place] [id number] Jan, [facility] [address] [id number] [address] [place] [id number] Jan, [facility] [address] [id number] [address] [place] [phone] Jan, [facility] [address] [id number] [address] [place] [phone] Jan, [facility] [address] [id number] [address] [place] [phone] Jan, [facility] [address] [facility] [id number] [address] [place] [id number] Jan, [facility] [address] [id number] [address] [place] [id number] Jan, [facility] [facility] [address] [id number] [address] [place] [address] Jan, [facility] [address] [id number] [address] [place] [address] Jan, [facility] [address] [id number] [address] [place] [address] Dec, [facility] [address] [id number] [address] [place] [address] Dec, [facility] [address] [id number] [address] [place] [address], [place] [address] Dec, 2014 [facility] [address] [id number] [address] [place] [address], [place] [address] Dec, 2014 [facility] [address] [id number] [address] [place] [address], [place] [address] Dec, 2014 [facility] [address] [id number] [address] [place] [address], [place] [address] Dec, 2014 [facility] [address] [id number] [address] [place] [address], [place] [address] Dec, 2014 [facility] [address] [id number] [address] [place] [address], [place] [address] Dec, 2014 [facility] [address] [id number] [address] [place] [address], [place] [address] Dec, 2014 [facility] [address] [id number] [address] [place] [address], [place] [address] Dec, 2014 [facility] [address] [id number] [address] [place] [address], [place] [address] Oct, [facility] [address] [id number] [address] [place] [address], [place] [address] Oct, [facility] [address] [id number] [address] [place] [address], [place] [address] Oct, [facility] [address] [id number] [address] [place] [address], [place] [address] Oct, [facility] [address] [id number] [address] [place] [address], [place] [address] Oct, [facility] [address] [id number] [address] [place] [address], [place] [address] Oct, [facility] [address] [id number] [address] [place] [address], [place] [address] Oct, [facility] [address] [id number] [address] [place] [address], [place] [address] 05 Oct, 2014 [facility] [address] [id number] [address] [place] [address], [place] [address] Oct, [facility] [address] [id number] [address] [place] [address], [place] [address] Oct, [facility] [address] [id number] [address] [place] [address], [place] [address] Oct, [facility] [address] [id number] [address] [place] [address], [place] [address] Oct, [facility] [address] [id number] [address] [place] [address], [place] [address] Oct, [facility] [address] [id number] [address] [place] [address], [place] [address] Oct, [facility] [address] [id number] [address] [place] [address], [place] [address] Sep, [facility] [address] [id number] [address] [place] [address], [place] [address] Sep, [facility] [address] [id number] [address] [place] [address], [place] [address] Sep, [facility] [address] [id number] [address] [place] [address], [place] [address] Sep, [facility] [address] [id number] [address] [place] [address], [place] [address] Sep, [facility] [address] [id number] [address] [place] [address], [place] [address] Sep, [facility] [address] [id number] [address] [place] [address], [place] [address] Sep, [facility] [address] [id number] [address] [place] [address], [place] [address] Sep, [facility] [address] [id number] [address] [place] [address], [place] [address] Sep, [facility] [address] [id number] [address] [place] [address], [place] [address] Aug, [facility] [address] [id number] [address] [place] [address], [place] [address] Aug, [facility] [address] [id number] [address] [place] [address], [place] [address] Aug, [facility] [address] [id number] [address] [place] [address], [place] [address] Aug, [facility] [address] [id number] [address] [place] [address], [place] [address] 16 Aug, 2014 [facility] [address] [id number] [address] [place] [address], [place] [address] Aug, [facility] [address] [id number] [address] [place] [address], [place] [address] Aug, [facility] [address] [id number] [address] [place] [address], [place] [address] Aug, [facility] [address] [id number] [address] [place] [address], [place] [address] Aug, [facility] [address] [id number] [address] [place] [address], [place] [address] 29 Jul, 2014 [facility] [address] [id number] [address] [place] [address], [place] [address] 29 Jul, 2014 [facility] [address] [id number] [address] [place] [address], [place] [address] 25 Jul, 2013 [facility] [address] [id number] [address] [place] [address], [place] [address] Jul, [facility] [address] [id number] [address] [place] [address], [place] [address] Jul, 2013 [facility] [address] [id number] [address] [place] [address], [place] [address] Jul, 2013 [facility] [address] [id number] [address] [place] [address], [place] [address] Jul, [facility] [address] [id number] [facility] [place] [address] Jul, [facility] [address] [id number] [address] [place] [address], [place] [address] Jul, [facility] [address] [id number] [address] [place] [address], [place] [address] Jul, [facility] [address] [id number] [address] [place] [address], [place] [address] Jun, [facility] [address] [id number] [address] [place] [address], [place] [address] Jun, [facility] [address] [id number] [address] [place] [address], [place] [address] Jun, [facility] [address] [id number] [address] [place] [address], [place] [address] Jun, [facility] [address] [id number] [address] [place] [address], [place] [address] Jun, [facility] [address] [id number] [address] [place] [address], [place] [address] Jun, [facility] [address] [id number] [address] [place] [address], [place] [address] Jun, [facility] [address] [id number] [address] [place] [address], [place] [address] Jun, [facility] [address] [id number] [address] [place] [address], [place] [address] Jun, [facility] [address] [id number] [address] [place] [address], [place] [address] Jun, [facility] [address] [id number] [address] [place] [address], [place] [address] Jun, [facility] [address] [id number] [address] [place] [address], [place] [address] Jun, [facility] [address] [id number] [facility] [place] [address] May, [facility] [address] [id number] [facility] [place] [address] May, [facility] [address] [id number] [facility] [place] [address] May, [facility] [address] [id number] [facility] [place] [address] May, [facility] [address] [id number] [facility] [place] [address] May, [facility] [address] [id number] [address] [place] [address], [place] [address] May, [facility] [address] [id number] [address] [place] [address], [place] [address] March, [facility] [address] [id number] [address] [place] [address], [place] [address] March, [facility] [address] [id number] [address] [place] [address], [place] [address] March, [facility] [address] [id number] [address] [place] [address], [place] [address] March, [facility] [address] [id number] [address] [place] [address], [place] [address] March, [facility] [address] [id number] [address] [place] [address], [place] [address] March, [facility] [address] [id number] [address] [place] [address], [place] [address] Feb, [facility] [address] [id number] [address] [place] [address], [place] [address] Feb, [facility] [address] [id number] [address] [place] [address], [place] [address] Feb, [facility] [address] [id number] [address] [place] [address], [place] [address] Feb, [facility] [address] [id number] [facility] [place] [address] Jan, [facility] [address] [id number] [facility] [place] [address] Jan, [facility] [address] [id number] [facility] [place] [address] Jan, [facility] [address] [id number] [address] [place] [address], [place] [address] Jan, [facility] [address] [id number] [address] [place] [address], [place] [address] Jan, [facility] [address] [id number] [address] [place] [address], [place] [address] Jan, [facility] [address] [id number] [address] [place] [address], [place] [address] Jan, [facility] [address] [id number] [address] [place] [address], [place] [address] Jan, [facility] [address] [id number] [address] [place] [address], [place] [address] Jan, [facility] [address] [id number] [address] [place] [address], [place] [address] Jan, [facility] [address] [id number] [address] [place] [address], [place] [address] Jan, [facility] [address] [id number] [address] [place] [address], [place] [address] Jan, [facility] [address] [id number] [address] [place] [address], [place] [address] Dec, [facility] [address] [id number] [address] [place] [address], [place] [address] Dec, [facility] [address] [id number] [address] [place] [address], [place] [address] Dec, [facility] [address] [id number] [address] [place] [address], [place] [address] Dec, [facility] [address] [id number] [address] [place] [address], [place] [address] Dec, [facility] [address] [id number] [address] [place] [address], [place] [address] Dec, [facility] [address] [id number] [address] [place] [address], [place] [address] Nov, [facility] [address] [id number] [address] [place] [address], [place] [address] Nov, [facility] [address] [id number] [address] [place] [address], [place] [address] Oct, [facility] [address] [id number] [address] [place] [address], [place] [address] Oct, [facility] [address] [id number] [address] [place] [address], [place] [address] Oct, [facility] [address] [id number] [address] [place] [address], [place] [address] Oct, [facility] [address] [id number] [address] [place] [address], [place] [address] Oct, [facility] [address] [id number] [address] [place] [address], [place] [address] Oct, [facility] [address] [id number] [address] [place] [address], [place] [address] Sep, [facility] [address] [id number] [address] [place] [address], [place] [address] Sep, [facility] [address] [id number] [address] [place] [address], [place] [address] Sep, [facility] [address] [id number] [address] [place] [address], [place] [address] Sep, [facility] [address] [id number] [address] [place] [address], [place] [address] Aug, [facility] [address] [id number] [address] [place] [address], [place] [address] Aug, [facility] [address] [id number] [address] [place] [address], [place] [address] Aug, [facility] [address] [id number] [address] [place] [address], [place] [address] 17 Jul, 2013 [facility] [address] [id number] [address] [place] [address], [place] [address] 14 Jul, 2013 [facility] [address] [id number] [address] [place] [address], [place] [address] Jul, [facility] [address] [id number] [address] [place] [address], [place] [address] Jun, [facility] [address] [id number] [address] [place] [address], [place] [address] Jun, [facility] [address] [id number] [address] [place] [address], [place] [address] Jun, [facility] [address] [id number] [address] [place] [address], [place] [address] Apr, [facility] [address] [id number] [address] [place] [address], [place] [address] Apr, [facility] [address] [id number] [address] [place] [address], [place] [address] March, [facility] [address] [id number] [address] [place] [address] March, [facility] [address] [id number] [address] [place] [address], [place] [address] March, [facility] [address] [id number] [address] [place] [address], [place] [address] March, [facility] [address] [id number] [address] [place] [address], [place] [address] Feb, [facility] [address] [id number] [address] [place] [address] 05 Jan, 2013 [facility] [address] [id number] [address] [place] [address], [place] [address] 13 Dec, 2012 [facility] [address] [id number] [address] [place] [address], [place] [address] 08 Dec, 2012 [facility] [address] [id number] [address] [place] [address], [place] [address] 07 Dec, 2012 [facility] [address] [id number] [address] [place] [address], [place] [address] Nov, [facility] [address] [id number] [address] [place] [address], [place] [address] Oct, [facility] [address] [id number] [address] [place] [address], [place] [address] Oct, [facility] [address] [id number] [address] [place] [address], [place] [address] Sep, [facility] [address] [id number] [address] [place] [address], [place] [address] Sep, [facility] [address] [id number] [address] [place] [address], [place] [address] Sep, [facility] [address] [id number] [address] [place] [address], [place] [address] Sep, [facility] [address] [id number] [address] [place] [address], [place] [address] Sep, [facility] [address] [id number] [address] [place] [address] Sep, [facility] [address] [id number] [address] [place] [address], [place] [address] Sep, [facility] [address] [id number] [address] [place] [address], [place] [address] Aug, [facility] [address] [id number] [address] [place] [address] Aug, [facility] [address] [id number] [address] [place] [address], [place] [address] Aug, [facility] [address] [id number] [address] [place] [address], [place] [address] Aug, [facility] [address] [id number] [address] [place] [address], [place] [address] Aug, [facility] [address] [id number] [address] [place] [address], [place] [address] Aug, [facility] [address] [id number] [address] [place] [address], [place] [address] Aug, [facility] [address] [id number] [address] [place] [address], [place] [address] Aug, [facility] [address] [id number] [address] [place] [address], [place] [address] Jul, [facility] [address] [id number] [address] [place] [address], [place] [address] Jul, [facility] [address] [id number] [address] [place] [address], [place] [address] Jun, [facility] [address] [id number] [address] [place] [address], [place] [address] May, [facility] [address] [id number] [address] [place] [address], [place] [address] Apr, [facility] [address] [id number] [address] [place] [address], [place] [address] Apr, [facility] [address] [id number] [address] [place] [address], [place] [address] Apr, [facility] [address] [id number] [address] [place] [address], [place] [address] March, [facility] [address] [id number] [address] [place] [address], [place] [address] March, [facility] [address] [id number] [address] [place] [address], [place] [address] March, [facility] [address] [id number] [address] [place] [address], [place] [address] March, [facility] [address] [id number] [address] [place] [address], [place] [address] March, [facility] [address] [id number] [address] [place] [address], [place] [address] March, [facility] [address] [id number] [address] [place] [address], [place] [address] March, [facility] [address] [id number] [address] [place] [address], [place] [address] Jan, [facility] [address] [id number] [address] [place] [address], [place] [address] Jan, [facility] [address] [id number] [address] [place] [address], [place] [address] Jan, [facility] [address] [id number] [address] [place] [address], [place] [address] Jan, [facility] [address] [id number] [address] [place] [address], [place] [address] Jan, [facility] [address] [id number] [address] [place] [address], [place] [address] Dec, [facility] [address] [id number] [address] [place] [address], [place] [address] Dec, [facility] [address] [id number] [address] [place] [address], [place] [address] Nov, [facility] [address] [id number] [address] [place] [address], [place] [address] Nov, [facility] [address] [id number] [address] [place] [address], [place] [address] Nov, [facility] [address] [id number] [address] [place] [address], [place] [address] Nov, [facility] [address] [id number] [address] [place] [address], [place] [address] 21 Oct, 2011 [facility] [address] [id number] [address] [place] [address], [place] [address] 06 Oct, 2011 [facility] [address] [id number] [address] [place] [address], [place] [address] 14 Sep, 2011 [facility] [address] [id number] [address] [place] [address], [place] [address] 10 Sep, 2011 [facility] [address] [id number] [address] [place] [address], [place] [address] 10 Sep, 2011 [facility] [address] [id number] [address] [place] [address], [place] [address] 11 May, 2011 [facility] [address] [id number] [address] [place] [address], [place] [address] Nov, [facility] [address] [id number] [address] [place] [address], [place] [address] 29 Oct, 2010 [facility] [address] [id number] [address] [place] [address], [place] [address] 14 Oct, 2010 [facility] [address] [id number] [address] [place] [address], [place] [address] 08 Oct, 2010 [facility] [address] [id number] [address] [place] [address], [place] [address] 15 Sep, 2010 [facility] [address] [id number] [address] [place] [address], [place] [address] Sep, [facility] [address] [id number] [address] [place] [address], [place] [address] Aug, [facility] [address] [id number] [address] [place] [address], [place] [address] March, [facility] [address] [id number] [address] [place] [address], [place] [address] Oct, [facility] [address] [id number] [address] [place] [address], [place] [address] Oct, [facility] [address] [id number] [address] [place] [address] Oct, [facility] [address] [id number] [address] [place] [phone] Oct, [facility] [address] [id number] [address] [place] [address] Sep, [facility] [address] [id number] [address] [place] [id number] Sep, [facility] [address] [id number] [address] [place] [phone] Sep, [facility] [address] [id number] [address] [place] [phone] Aug, [facility] [address] [id number] [address] [place] [address] Aug, [facility] [address] [id number] [address] [place] [phone] Aug, [facility] [address] [id number] [address] [place] [phone] Jan, IMMUNIZATIONS No Known Immunizations SOCIAL HISTORY Never Assessed REASON FOR VISIT PLAN OF CARE VITAL SIGNS Height 69 in 2012-05-03 Weight 251.2 lbs 2012-05-03 Temperature 97.9 degrees Fahrenheit 2012-05-03 Heart Rate 80 bpm 2012-05-03 Respiratory Rate 18 2012-05-03 Blood pressure systolic 124 mmHg 2012-05-03 Blood pressure diastolic 80 mmHg 2012-05-03 MEDICATIONS Unknown Medications RESULTS No Results PROCEDURES Procedure Date Ordered Result Body Site GLYCATED HEMOGLOBIN TEST May 03, 2012 MICROALBUMIN, SEMIQUANT May 03, 2012 LIPID PANEL May 03, 2012 COMPREHEN METABOLIC PANEL May 03, 2012 VENIPUNCT, ROUTINE* May 03, 2012 INSTRUCTIONS MEDICATIONS ADMINISTERED No Known Medications [...]
--- OUTSIDE RECORDS SUMMARY | 2020-06-13 16:08 | XMS REPORT ---
Author Author Jah Durant Doctor Organization [facility] Address Unknown Phone Unavailable Care Team Providers Care Gear Technician Name Role Phone Migration, Doctor Unavailable Unavailable PROBLEMS Type Condition ICD9-CM Code MXP77-LV Code Onset Dates Condition S tatus SNOMED Code Problem Hypothyroid E03.9 Active 23668864 Problem Neuropathy G62.9 Active 828601465 Problem Mixed hyperlipidemia E78.2 Active 507070660 Problem Overactive bladder N32.81 Active 2 02812293 Problem Irritable bowel syndrome with diarrhea K58.0 Active 114041743 Problem Gastroesophageal reflux disease with esophagitis K 21.0 Active 822802182 Problem Type 2 diabetes mellitus with hyperglycemia E11.65 Active 61025751 Problem MCC current use of insulin Z79.4 Active 836917238 Problem Current non-adherence to medical treatment Z91.19 Active 9783507 Problem Recurrent major depressive disorder, in partial remission F33.41 Active 07686999 Problem Chronic fatigue R53.82 Active 8422 9001 Problem 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 Active 176307993 Problem Pulmonary emphysema, unspecified emphysema type J4 3.9 Active 27840935 Problem Thrombocytosis D47.3 Active 77270 09 Problem Acquired hypothyroidism E03.9 Active 388535488 Problem Essential (primary) hypertension I10 Active 28485582 Problem Chronic pain G89.29 Active 8916080 1 Problem Anxiety disorder, unspecified type F41.9 Active 244202773 Problem Major depressive disorder, recurrent episode, moderate F33.1 Active 165680044 Problem Hypertriglyceridemia E78.1 Active 221751073 Problem Gastroparesis K31.84 Active 147260 006 ALLERGIES No Information ENCOUNTERS Encounter Location Date Diagnosis [facility] [address] [facility] [id number] [address] [place] [address] Jun, [facility] [address] [facility] [id number] [address] [place] [address] May, [facility] [address] [facility] [id number] [address] [place] [address] May, Chronic pain G89.29 [facility] [address] [facility] [id number] [address] [place] [address] Apr, Poison maryam dermatitis L23.7 [facility] [address] [facility] [id number] [address] [place] [address] Apr, Chronic pain G89.29 [facility] [address] [facility] [id number] [address] [place] [address] March, Type 2 diabetes mellitus wit h hyperglycemia E11.65 [facility] [address] [facility] [id number] [address] [place] [address] March, Chronic pain G89.29 [facility] [address] [facility] [id number] [address] [place] [address] March, [address] [address] Feb, [facility] [address] [facility] [id number] [address] [place] [address] Feb, Other chronic pain G89.29 an d Chronic pain G89.29 [facility] [address] [facility] [id number] [address] [place] [address] Jan, Mixed hyperlipidemia E78.2 [facility] [address] [facility] [id number] [address] [place] [address] Jan, Chronic pain G89.29 [facility] [address] [facility] [id number] [address] [place] [address] Jan, Type 2 diabetes mellitus wit h hyperglycemia E11.65 ; Mixed hyperlipidemia E78.2 ; jewel hole gauger current use of insulin Z79.4 ; Acquired hypothyroidism E03.9 and Essential (primary) hypertension I10 [facility] [address] [facility] [id number] [address] [place] [address] Dec, Chronic pain G89.29 [facility] [address] [facility] [id number] [address] [place] [address] Nov, Chronic pain G89.29 [facility] [address] [facility] [id number] [address] [place] [address] Nov, [facility] [address] [facility] [id number] [address] [place] [address] Oct, Chronic pain G89.29 [facility] [address] [facility] [id number] [address] [place] [address] Oct, [facility] [address] [facility] [id number] [address] [place] [address] Sep, [facility] [address] [facility] [id number] [address] [place] [address] Sep, Type 2 diabetes mellitus wit h hyperglycemia E11.65 [place] [address] [place] [id number] [address] [place] [address] Sep, Chronic pain G89.29 [facility] [address] [facility] [id number] [address] [place] [address] Sep, [facility] [address] [facility] [id number] [address] [place] [address] Sep, Type 2 diabetes mellitus wit h hyperglycemia E11.65 ; Irritable bowel syndrome with diarrhea K58.0 ; Gastroparesis K31.84 ; 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 and Dermatitis L30.9 [facility] [address] [facility] [id number] [address] [place] [address] Aug, Chronic pain G89.29 [facility] [address] [facility] [id number] [address] [place] [address] Jul, Chronic pain G89.29 [facility] [address] [facility] [id number] [address] [place] [address] Jun, Type 2 diabetes mellitus wit h hyperglycemia E11.65 ; Neuropathy G62.9 ; Recurrent major depressive disorder, in partial remission F33.41 ; Chronic pain G89.29 and Hypertriglyceridemia E78.1 [place] [address] [facility] [id number] [address] [place] [address] 17 Jun, 2018 Hypothyroid E03.9 [place] [address] [facility] [id number] [address] [place] [address] 16 Jun, 2018 Major depressive disorder, r ecurrent episode, moderate F33.1 and Anxiety disorder, unspecified type F41.9 [place] [address] [facility] [id number] [address] [place] [address] Jun, [place] [address] [place] [id number] [address] [place] [address] Jun, Type 2 diabetes mellitus wit h hyperglycemia E11.65 ; jewel hole gauger current use of insulin Z79.4 ; Recurrent major depressive disorder, in partial remission F33.41 ; Hypothyroid E03.9 ; Candidal dermatitis B37.2 and Weakness generalized R53.1 [place] [address] [place] [id number] [address] [place] [address] May, [place] [address] [place] [id number] [address] [place] [address] May, [place] [address] [place] [id number] [address] [place] [address] May, [place] [address] [facility] [id number] [address] [place] [address] May, Generalized abdominal pain R 10.84 and Candidal dermatitis B37.2 [place] [address] [facility] [id number] [address] [place] [address] May, [place] [address] [facility] [id number] [address] [place] [address] May, [place] [address] [facility] [id number] [address] [place] [address] May, Nodular radiologic density R 93.8 ; Weight loss, unintentional R63.4 and Pulmonary emphysema, unspecified emphysema type J43.9 [place] [address] [facility] [id number] [address] [place] [address] May, Chronic pain G89.29 [facility] [address] [id number] [address] [place] [address] 09 May, 2018 Syncope and collapse R55 ; C hronic fatigue R53.[address] lung screening R91.8 [facility] [address] [id number] [address] [place] [address] May, [facility] [address] [id number] [address] [place] [address] Apr, Chronic fatigue R53.82 ; Abn ormal chest CT R93.8 ; Elevated erythrocyte sedimentation rate R70.0 ; Hypothyroid E03.9 and Recurrent major depressive disorder, in partial remission F33.41 [facility] [address] [id number] [address] [place] [address] Apr, Hypothyroid E03.9 [facility] [address] [id number] [address] [place] [address] Apr, Depression F32.9 [facility] [address] [id number] [address] [place] [address] Apr, [facility] [address] [facility] [id number] [address] [place] [address] March, [facility] [address] [facility] [id number] [address] [place] [address] March, Hypothyroid E03.9 [facility] [address] [id number] [address] [place] [address] March, Diabetes mellitus E11.9 and Hypothyroid E03.9 [facility] [address] [id number] [address] [place] [address] March, Diabetes mellitus E11.9 [facility] [address] [facility] [id number] [address] [place] [address] March, Hypothyroid E03.9 and Elevat ed liver enzymes R74.8 [facility] [address] [place] [id number] [address] [place] [address] March, Type 2 diabetes mellitus wit h hyperglycemia E11.65 ; jewel hole gauger current use of insulin Z79.4 ; Pulmonary emphysema, unspecified emphysema type J43.9 ; Hypothyroid E03.9 ; Neuropathy G62.9 ; Mixed hyperlipidemia E78.2 ; Chronic pain G89.29 ; Gastroesophageal reflux disease with esophagitis K21.0 ; Irritable bowel syndrome with diarrhea K58.0 ; Overactive bladder N32.81 and Recurrent major depressive disorder, in partial remission F33.41 [place] [address] [facility] [id number] [address] [place] [address] Feb, Chronic pain G89.29 [place] [address] [place] [id number] [address] [place] [address] Feb, Type 2 diabetes mellitus wit h hyperglycemia E11.65 and Skin lesion of scalp L98.9 [place] [address] [place] [id number] [address] [place] [address] Feb, [place] [address] [place] [id number] [address] [place] [address] Jan, Type 2 diabetes mellitus wit h hyperglycemia E11.65 ; jewel hole gauger current use of insulin Z79.4 ; Essential (primary) hypertension I10 ; Pulmonary emphysema, unspecified emphysema type J43.9 ; Chronic pain G89.29 ; Controlled substance agreement signed Z79.899 ; Hypothyroid E03.9 ; Neuropathy G62.9 ; Gastroesophageal reflux disease with esophagitis K21.0 ; Overactive bladder N32.81 ; Depression F32.9 and Irritable bowel syndrome with diarrhea K58.0 [place] [address] [facility] [id number] [address] [place] [address] Jan, [place] [address] [place] [id number] [address] [place] [address] Jan, Controlled substance agreeme nt signed Z79.899 [place] [address] [place] [id number] [address] [place] [address] Dec, Type 2 diabetes mellitus wit h [...] and Overweight (BMI 25.0-29.9) E66.3 [place] [id number] [id number] [address] [place] [address] 02 Dec, 2018 Controlled substance agreeme nt signed Z79.899 [place] [address] [id number] [address] [place] [address] Nov, Type 2 diabetes mellitus wit h hyperglycemia E11.65 and Current non- adherence to medical treatment Z91.19 [place] [address] [id number] [address] [place] [address] Nov, [place] [address] [id number] [address] [place] [address] Nov, Chronic pain G89.29 [place] [address] [id number] [address] [place] [address] Nov, [place] [address] [id number] [address] [place] [address] Nov, Hypothyroid E03.9 [place] [address] [id number] [address] [place] [address] Nov, Hypothyroid E03.9 [place] [address] [id number] [address] [place] [address] Nov, Pulmonary emphysema, unspeci fied emphysema type J43.9 and Irritable bowel syndrome with diarrhea K58.0 [place] [address] [id number] [address] [place] [address] Oct, [place] [address] [id number] [address] [place] [address] Oct, [place] [id number] [address] Oct, [place] [address] [address] Oct, [place] [address] [address] Oct, Chronic pain G89.29 [place] [address] [address] Oct, Diabetes mellitus E11.9 ; De pression F32.9 ; Mixed hyperlipidemia E78.2 ; Hypotension, unspecified hypotension type I95.9 ; Pulmonary emphysema, unspecified emphysema type J43.9 and Weight loss, unintentional R63.4 [place] [address] [address] Oct, Chronic pain G89.29 [place] [address] [address] Sep, Chronic pain G89.29 [place] [address] [address] Sep, Hypothyroid E03.9 and Diabet es mellitus E11.9 [place] [address] [address] Aug, Type 2 diabetes mellitus wit h hyperglycemia E11.65 ; jewel hole gauger current use of insulin Z79.4 ; Essential (primary) hypertension I10 ; Hypothyroid E03.9 ; Neuropathy G62.9 ; Chronic pain G89.29 ; Mixed hy perlipidemia E78.2 and Encounter for immunization Z23 [place] [address] [address] Aug, Chronic pain G89.29 [place] [address] [address] Aug, Overactive bladder N32.81 ; Diabetes mellitus E11.9 and Chronic pain G89.29 [facility] [address] [facility] [id number] [address] [place] [address] Jul, [facility] [address] [facility] [id number] [address] [place] [address] Jun, [facility] [address] [facility] [id number] [address] [place] [address] Jun, [facility] [address] [facility] [id number] [address] [place] [address] Jun, Hypothyroid E03.9 [facility] [address] [facility] [id number] [address] [place] [address] Jun, Diabetes mellitus E11.9 ; Hy pothyroid E03.9 ; Neuropathy G62.9 ; Chronic pain G89.29 and Neck mass R22.1 [facility] [address] [facility] [id number] [address] [place] [address] Apr, [facility] [address] [facility] [id number] [address] [place] [address] Apr, Acute cystitis without hemat uria N30.00 [facility] [address] [facility] [id number] [address] [place] [address] March, [facility] [address] [facility] [id number] [address] [place] [address] March, [facility] [address] [facility] [id number] [address] [place] [address] March, Near syncope R55 [facility] [address] [facility] [id number] [address] [place] [address] Feb, [facility] [address] [facility] [id number] [address] [place] [address] Feb, Chronic pain G89.29 [facility] [address] [facility] [id number] [address] [place] [address] Feb, [facility] [address] [facility] [id number] [address] [place] [address] Feb, [facility] [address] [facility] [id number] [address] [place] [address] Jan, Chronic pain G89.29 [facility] [address] [place] [id number] [address] [place] [address] Jan, [facility] [address] [place] [id number] [address] [place] [address] 16 Jan, 2017 [facility] [address] [place] [id number] [address] [place] [address] 14 Jan, 2017 Diabetes mellitus E11.9 ; Hy pothyroid E03.9 ; GERD (gastroesophageal reflux disease) K21.9 ; Insomnia G47.00 ; Functional 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 ; Neuropathy G62.9 ; Depression F32.9 ; Chronic pain G89.29 ; Irritable bowel syndrome with diarrhea K58.0 ; Overactive bladder N32.81 ; Mixed hyperlipidemia E78.2 and Bronchitis J40 [facility] [id number] [place] [address] Dec, [facility] [address] [place] [address] Dec, [facility] [id number] [place] [address] Dec, [facility] [address] [place] [address] Dec, [facility] [address] [place] [id number] [address] [place] [address] Dec, Chronic pain G89.29 [facility] [address] [place] [address] Dec, [facility] [address] [place] [id number] [address] [place] [address] Dec, [facility] [address] [place] [id number] [address] [place] [address] Dec, Type 2 diabetes mellitus wit h foot ulcer E11.621 [facility] [address] [facility] [id number] [address] [place] [address] 17 Dec, 2016 Type 2 diabetes mellitus wit h foot ulcer E11.621 [facility] [address] [facility] [id number] [address] [place] [address] 14 Dec, 2016 HTN (hypertension) I10 ; Dep ression F32.9 ; Type 2 diabetes mellitus with foot ulcer E11.621 ; Functional 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 ; Irritable bowel syndrome with diarrhea K58.0 ; Chronic pain G89.29 ; Insomnia G47.00 ; Overactive bladder N32.81 ; Mixed hyperlipidemia E78.2 ; Gastroesophageal reflux disease with esophagitis K21.0 and Acquired hypothyroidism E03.9 [place] [address] [address] Nov, [place] [address] [address] Oct, [place] [address] [address] Oct, [place] [address] [address] Oct, [place] [address] [address] Sep, Functional 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 ; HTN (hypertension) I10 ; Diabetes mellitus E11.9 ; Depression F32.9 ; Overactive bladder N32.81 ; Mixed hyperlipidemia E78.2 ; Gastroesophageal reflux disease without esophagitis K21.9 ; Chronic pain G89.29 ; Insomnia G47.00 and Acquired hypothyroidism E03.9 [place] [address] [address] 04 Sep, 2016 [place] [address] [address] Aug, Encounter for immunization Z 23 [place] [address] [address] Aug, [place] [address] [address] Jul, [place] [address] [address] Jun, Type 2 diabetes mellitus wit hout complications E11.9 ; HTN (hypertension) I10 ; Hypothyroid E03.9 ; Neuropathy G62.9 ; Depression F32.9 ; Chronic pain G89.29 ; GERD (gastroesophageal reflux disease) K21.9 ; Insomnia G47.00 ; Overactive bladder N32.81 ; Mixed hyperlipidemia E78.2 ; Diarrhea of infectious origin A09 and Environmental allergies Z91.09 [place] [address] [address] Apr, [place] [address] [address] March, Hypothyroidism, unspecified E03.9 and Mixed hyperlipidemia E78.2 [place] [address] [address] March, Diabetes mellitus E11.9 ; HT N (hypertension) I10 ; Hypothyroid E03.9 ; Depression F32.9 ; Overactive bladder N32.81 ; Other chronic pain G89.29 ; Lumbago with sciatica, unspecified side M54.40 ; Environmental allergies Z91.09 and Gastroesophageal reflux disease, esophagitis presence not specified K21.9 [place] [address] [address] March, [place] [address] [address] Jan, HTN (hypertension) I10 ; Hyp othyroid E03.9 ; Neuropathy G62.9 ; Diabetes mellitus E11.9 ; Chronic pain G89.29 ; GERD (gastroesophageal reflux disease) K21.9 ; Overactive bladder N32.81 and Depression F32.9 [place] [address] [address] Dec, Ear pain, left H92.02 ; HTN (hypertension) I10 ; Hypothyroid E03.9 ; Neuropathy G62.9 ; Diabetes mellitus E11.9 ; Depression F32.9 ; GERD (gastroesophageal reflux disease) K21.9 ; Insomnia G47.00 and Overactive bladder N32.81 [place] [id number] [facility] [id number] [address] [place] [address] Nov, Overactive bladder N32.81 an d Chronic pain G89.29 [place] [address] [place] [id number] [address] [place] [address] Nov, Kidney failure N19 [place] [address] [place] [id number] [address] [place] [address] Nov, [place] [address] [place] [id number] [address] [place] [address] Nov, [place] [address] [place] [id number] [place] [address] Nov, Diabetes mellitus E11.9 ; De pression F32.9 ; Chronic pain G89.29 ; GERD (gastroesophageal reflux disease) K21.9 ; Insomnia G47.00 ; HTN (hypertension) I10 ; Hypothyroid E03.9 ; COPD (chronic obstructive pulmonary disease) J44.9 ; Bladder incontinence R32 and Incontinence R32 [place] [address] [facility] [id number] [address] [place] [address] Sep, Type 2 diabetes mellitus wit h foot ulcer E11.621 and Chromosomal abnormality, 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 [place] [address] [facility] [id number] [address] [place] [address] Sep, [place] [address] [place] [id number] [address] [place] [address] Aug, [place] [address] [place] [id number] [address] [place] [address] Aug, [place] [address] [place] [id number] [address] [place] [id number] Aug, HTN (hypertension) I10 ; Enc ounter for immunization Z23 ; Hypothyroid E03.9 ; Neuropathy G62.9 ; Diabetes mellitus E11.9 ; Depression F32.9 ; Chronic pain G89.29 ; GERD (gastroesophageal reflux disease) K21.9 ; Insomnia G47.00 and COPD (chronic obstructive pulmonary disease) J44.[address] [id number] Jun, [address] [id number] Jun, [address] [address] May, Essential hypertension, ivis gn 401.1 ; Unspecified hypothyroidism 244.9 ; Insomnia, unspecified 780.52 ; Shortness of breath 786.05 ; Depression 311 ; COPD (chronic obstructive pulmonary disease) 496 ; GERD (gastroesophageal reflux disease) 530.81 and Diabetes 1.5, 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 [id number] May, [address] [id number] May, [address] [id number] May, Shortness of breath 786.05 ; Essential hypertension, benign 401.1 ; Diabetes mellitus 250.00 ; Hyperlipidemia 272.4 ; Hypothyroid 244.9 ; Insomnia 780.52 and Cough 786.[address] [id number] Apr, [address] [address] March, Shortness of breath 786.05 ; Nausea with vomiting 787.01 ; Essential hypertension, benign 401.1 ; Diabetes mellitus 250.00 ; Hyperlipidemia 272.4 and Hypothyroid 244.9 [place] [address] [id number] [address] [place] [address], [place] [id number] 14 Feb, 2015 [facility] [address] [id number] [address] [place] [address], [place] [address] 13 Feb, 2015 [facility] [address] [id number] [address] [place] [address], [place] [id number] 24 Jan, 2015 [facility] [address] [id number] [address] [place] [address], [place] [address] Jan, [facility] [address] [id number] [address] [place] [address], [place] [address] Jan, [facility] [address] [id number] [address] [place] [address], [place] [address] Jan, [facility] [address] [id number] [address] [place] [address], [place] [address] Jan, [facility] [facility] [address] [id number] [address] [place] [address], [place] [address] Jan, [facility] [address] [id number] [address] [place] [address], [place] [address] Jan, [facility] [address] [id number] [address] [place] [address], [place] [address] Jan, [facility] [address] [id number] [address] [place] [address], [place] [address] Jan, [facility] [address] [id number] [address] [place] [address], [place] [address] Jan, [facility] [address] [id number] [address] [place] [address], [place] [address] Dec, [facility] [address] [id number] [address] [place] [address], [place] [address] Dec, [facility] [address] [id number] [address] [place] [address], [place] [address] Dec, [facility] [address] [id number] [address] [place] [address], [place] [address] Dec, 2014 [facility] [address] [id number] [address] [place] [address], [place] [address] Dec, 2014 [facility] [address] [id number] [address] [place] [address], [place] [address] Dec, 2014 [facility] [address] [id number] [address] [place] [address], [place] [address] Dec, 2014 [facility] [address] [id number] [address] [place] [address], [place] [address] Dec, 2014 [facility] [address] [id number] [address] [place] [address], [place] [address] Dec, 2014 [facility] [address] [id number] [address] [place] [address], [place] [address] Dec, 2014 [facility] [address] [id number] [address] [place] [address], [place] [address] Oct, [facility] [address] [id number] [address] [place] [address], [place] [address] Oct, [facility] [address] [id number] [address] [place] [address], [place] [address] Oct, [facility] [address] [id number] [address] [place] [address], [place] [address] Oct, [facility] [address] [id number] [address] [place] [address], [place] [address] Oct, [facility] [address] [id number] [address] [place] [address], [place] [address] Oct, [facility] [address] [id number] [address] [place] [address], [place] [address] Oct, [facility] [address] [id number] [address] [place] [address], [place] [address] Oct, [facility] [address] [id number] [address] [place] [address], [place] [address] Oct, [facility] [address] [id number] [address] [place] [address], [place] [address] Oct, [facility] [address] [id number] [address] [place] [address], [place] [address] Oct, [facility] [address] [id number] [address] [place] [address], [place] [address] Oct, [facility] [address] [id number] [address] [place] [address], [place] [address] Oct, [facility] [address] [id number] [address] [place] [address], [place] [address] Oct, [facility] [address] [id number] [address] [place] [address], [place] [address] Sep, [facility] [address] [id number] [address] [place] [address], [place] [address] Sep, [facility] [address] [id number] [address] [place] [address], [place] [address] Sep, [facility] [address] [id number] [address] [place] [address], [place] [address] Sep, [facility] [address] [id number] [address] [place] [address], [place] [address] Sep, [facility] [address] [id number] [address] [place] [address], [place] [address] Sep, [facility] [address] [id number] [address] [place] [address], [place] [address] Sep, [facility] [address] [id number] [address] [place] [address], [place] [address] Sep, [facility] [address] [id number] [address] [place] [address], [place] [address] Sep, [facility] [address] [id number] [address] [place] [address], [place] [address] Aug, [facility] [address] [id number] [address] [place] [address], [place] [address] Aug, [facility] [address] [id number] [address] [place] [address], [place] [address] Aug, [facility] [address] [id number] [address] [place] [address], [place] [address] 17 Aug, 2014 [facility] [address] [id number] [address] [place] [address], [place] [address] 16 Aug, 2014 [facility] [address] [id number] [address] [place] [address], [place] [address] Aug, [facility] [address] [id number] [address] [place] [address], [place] [address] Aug, [facility] [address] [id number] [address] [place] [address], [place] [address] Aug, [facility] [address] [id number] [address] [place] [address], [place] [address] Aug, [facility] [address] [id number] [address] [place] [address], [place] [address] 29 Jul, 2013 [facility] [address] [id number] [address] [place] [address], [place] [address] 29 Sep, 2013 [facility] [address] [id number] [address] [place] [address], [place] [address] 25 Jul, 2013 [facility] [address] [id number] [address] [place] [address], [place] [address] 25 Jul, 2013 [facility] [address] [id number] [address] [place] [address] 25 Jul, 2013 [facility] [address] [id number] [address] [place] [address], [place] [address] 25 Jul, 2013 [facility] [address] [id number] [address] [place] [address], [place] [address] Jul, 2013 [facility] [address] [id number] [address] [place] [address], [place] [address] 25 Jul, 2013 [facility] [address] [id number] [facility] [place] [address] Jul, [facility] [address] [id number] [facility] [place] [address] Jul, [facility] [address] [id number] [facility] [place] [address] Jun, [facility] [address] [id number] [address] [place] [address], [place] [address] Jun, [facility] [address] [id number] [address] [place] [address], [place] [address] Jun, [facility] [address] [id number] [address] [place] [address], [place] [address] Jun, [facility] [address] [id number] [address] [place] [address], [place] [address] Jun, [facility] [address] [id number] [address] [place] [address], [place] [address] Jun, [facility] [address] [id number] [address] [place] [address], [place] [address] Jun, [facility] [address] [id number] [address] [place] [address], [place] [address] Jun, [facility] [address] [id number] [address] [place] [address], [place] [address] Jun, [facility] [address] [id number] [address] [place] [address], [place] [address] Jun, [facility] [address] [id number] [address] [place] [address], [place] [address] Jun, [facility] [address] [id number] [address] [place] [address], [place] [address] Jun, [facility] [address] [id number] [address] [place] [address], [place] [address] May, [facility] [address] [id number] [address] [place] [address], [place] [address] May, [facility] [address] [id number] [address] [place] [address], [place] [address] May, [facility] [address] [id number] [address] [place] [address], [place] [address] May, [facility] [address] [id number] [address] [place] [address], [place] [address] May, [facility] [address] [id number] [address] [place] [address], [place] [address] May, [facility] [address] [id number] [address] [place] [address], [place] [address] March, [facility] [address] [id number] [address] [place] [address], [place] [address] March, [facility] [address] [id number] [address] [place] [address], [place] [address] March, [facility] [address] [id number] [address] [place] [address], [place] [address] March, [facility] [address] [id number] [address] [place] [address], [place] [address] March, [facility] [address] [id number] [address] [place] [address], [place] [address] March, [facility] [address] [id number] [address] [place] [address], [place] [address] Feb, [facility] [address] [id number] [address] [place] [address], [place] [address] Feb, [facility] [address] [id number] [address] [place] [address], [place] [address] Feb, [facility] [address] [id number] [address] [place] [address], [place] [address] Feb, [facility] [address] [id number] [address] [place] [address], [place] [address] Jan, [facility] [address] [id number] [address] [place] [address], [place] [address] Jan, [facility] [address] [id number] [address] [place] [address], [place] [address] Jan, [facility] [address] [id number] [address] [place] [address], [place] [address] Jan, [facility] [address] [id number] [address] [place] [address], [place] [address] Jan, [facility] [address] [id number] [address] [place] [address], [place] [address] Jan, [facility] [address] [id number] [address] [place] [address], [place] [address] Jan, [facility] [address] [id number] [address] [place] [address], [place] [address] Jan, [facility] [address] [id number] [address] [place] [address], [place] [address] Jan, [facility] [address] [id number] [address] [place] [address], [place] [address] Jan, [facility] [address] [id number] [address] [place] [address], [place] [address] Jan, [facility] [address] [id number] [address] [place] [address], [place] [address] Jan, [facility] [address] [id number] [address] [place] [address], [place] [address] Dec, [facility] [address] [id number] [address] [place] [address], [place] [address] Dec, [facility] [address] [id number] [address] [place] [address], [place] [address] Dec, [facility] [address] [id number] [address] [place] [address], [place] [address] Dec, [facility] [address] [id number] [address] [place] [address], [place] [address] Dec, [facility] [address] [id number] [address] [place] [address], [place] [address] Dec, [facility] [address] [id number] [address] [place] [address], [place] [address] Nov, [facility] [address] [id number] [address] [place] [address], [place] [address] Nov, [facility] [address] [id number] [address] [place] [address], [place] [address] Oct, [facility] [address] [id number] [address] [place] [address], [place] [address] Oct, [facility] [address] [id number] [address] [place] [address], [place] [address] Oct, [facility] [address] [id number] [address] [place] [address], [place] [address] Oct, [facility] [address] [id number] [address] [place] [address], [place] [address] Oct, [facility] [address] [id number] [address] [place] [address], [place] [address] Oct, [facility] [address] [id number] [address] [place] [address], [place] [address] Sep, [facility] [address] [id number] [address] [place] [address], [place] [address] Sep, [facility] [address] [id number] [address] [place] [address] Sep, [facility] [address] [id number] [address] [place] [address], [place] [address] Sep, [facility] [address] [id number] [address] [place] [address], [place] [address] Aug, [facility] [address] [id number] [address] [place] [address], [place] [address] Aug, [facility] [address] [id number] [address] [place] [address] 08 Aug, 2013 [facility] [address] [id number] [address] [place] [address], [place] [address] 17 Jul, 2013 [facility] [address] [id number] [address] [place] [address], [place] [address] 14 Jul, 2013 [facility] [address] [id number] [address] [place] [address], [place] [address] Jul, [facility] [address] [id number] [address] [place] [address], [place] [address] Jun, [facility] [address] [id number] [address] [place] [address], [place] [address] Jun, [facility] [address] [id number] [address] [place] [address], [place] [address] Jun, [facility] [address] [id number] [address] [place] [address], [place] [address] Apr, [facility] [address] [id number] [address] [place] [address], [place] [address] Apr, [facility] [address] [id number] [address] [place] [address], [place] [address] March, [facility] [address] [id number] [address] [place] [address], [place] [address] March, [facility] [address] [id number] [address] [place] [address], [place] [address] March, [facility] [address] [id number] [address] [place] [address], [place] [address] March, [facility] [address] [id number] [address] [place] [address], [place] [address] Feb, [facility] [address] [id number] [address] [place] [address], [place] [address] Jan, [facility] [address] [id number] [address] [place] [address], [place] [address] Dec, [facility] [address] [id number] [address] [place] [address], [place] [address] 08 Dec, 2012 [facility] [address] [id number] [address] [place] [address], [place] [address] 07 Dec, 2012 [facility] [address] [id number] [address] [place] [address], [place] [address] Nov, [facility] [address] [id number] [address] [place] [address], [place] [address] Oct, [facility] [address] [id number] [address] [place] [address], [place] [address] Oct, [facility] [address] [id number] [address] [place] [address], [place] [address] Sep, [facility] [address] [id number] [address] [place] [address], [place] [address] Sep, [facility] [address] [id number] [address] [place] [address], [place] [address] Sep, [facility] [address] [id number] [address] [place] [address], [place] [address] Sep, [facility] [address] [id number] [address] [place] [address], [place] [address] Sep, [facility] [address] [id number] [address] [place] [address], [place] [address] Sep, [facility] [address] [id number] [address] [place] [address], [place] [address] Sep, [facility] [address] [id number] [address] [place] [address], [place] [address] Aug, [facility] [address] [id number] [address] [place] [address], [place] [address] 16 Aug, 2012 [facility] [address] [id number] [address] [place] [address], [place] [address] 10 Aug, 2012 [facility] [address] [id number] [address] [place] [address], [place] [address] Aug, [facility] [address] [id number] [address] [place] [address], [place] [address] Aug, [facility] [address] [id number] [address] [place] [address], [place] [address] Aug, [facility] [address] [id number] [address] [place] [address], [place] [address] Aug, [facility] [address] [id number] [address] [place] [address], [place] [address] Aug, [facility] [address] [id number] [address] [place] [address], [place] [address] Jul, [facility] [address] [id number] [address] [place] [address], [place] [address] Jul, [facility] [address] [id number] [address] [place] [address], [place] [address] Jun, [facility] [address] [id number] [address] [place] [address], [place] [address] May, [facility] [address] [id number] [address] [place] [address], [place] [address] Apr, [facility] [address] [id number] [address] [place] [address], [place] [address] Apr, [facility] [address] [id number] [address] [place] [address], [place] [address] Apr, [facility] [address] [id number] [address] [place] [address], [place] [address] March, [facility] [address] [id number] [address] [place] [address], [place] [address] March, [facility] [address] [id number] [address] [place] [address], [place] [address] March, [facility] [address] [id number] [address] [place] [address], [place] [address] March, [facility] [address] [id number] [address] [place] [address], [place] [address] March, [facility] [address] [id number] [address] [place] [address], [place] [address] March, [facility] [address] [id number] [address] [place] [address], [place] [address] March, [facility] [address] [id number] [address] [place] [address], [place] [address] Jan, [facility] [address] [id number] [address] [place] [address], [place] [address] Jan, [facility] [address] [id number] [address] [place] [address], [place] [address] Jan, [facility] [address] [id number] [address] [place] [address], [place] [address] Jan, [facility] [address] [id number] [address] [place] [address], [place] [address] Jan, [facility] [address] [id number] [address] [place] [address], [place] [address] Dec, [facility] [address] [id number] [address] [place] [address], [place] [address] Dec, [facility] [address] [id number] [address] [place] [address], [place] [address] Nov, [facility] [address] [id number] [address] [place] [address], [place] [address] Nov, [facility] [address] [id number] [address] [place] [address], [place] [address] Nov, [facility] [address] [id number] [address] [place] [address], [place] [address] Nov, [facility] [address] [id number] [address] [place] [address], [place] [address] Oct, [facility] [address] [id number] [address] [place] [address], [place] [address] Oct, [facility] [address] [id number] [address] [place] [address], [place] [address] 14 Sep, 2011 [facility] [address] [id number] [address] [place] [address], [place] [address] 10 Sep, 2011 [facility] [address] [id number] [address] [place] [address], [place] [address] 10 Sep, 2011 [facility] [address] [id number] [address] [place] [address], [place] [address] 11 May, 2011 [facility] [address] [id number] [address] [place] [address], [place] [address] 20 Nov, 2010 [facility] [address] [id number] [address] [place] [address], [place] [address] 29 Oct, 2010 [facility] [address] [id number] [address] [place] [address], [place] [address] 14 Oct, 2010 [facility] [address] [id number] [address] [place] [address], [place] [address] 08 Oct, 2010 [facility] [address] [id number] [address] [place] [address], [place] [address] 15 Sep, 2010 [facility] [address] [id number] [address] [place] [address], [place] [address] Sep, [facility] [address] [id number] [address] [place] [address], [place] [address] Aug, [facility] [address] [id number] [address] [place] [address], [place] [address] March, [facility] [address] [id number] [address] [place] [address], [place] [address] Oct, [facility] [address] [id number] [address] [place] [address], [place] [address] 17 Oct, 2009 [facility] [address] [id number] [address] [place] [address], [place] [address] Oct, [facility] [address] [id number] [address] [place] [address] Oct, [facility] [address] [id number] [address] [place] [address] Sep, [facility] [address] [id number] [address] [place] [address] Sep, [facility] [address] [id number] [address] [place] [address] Sep, [facility] [address] [id number] [address] [place] [id number] Aug, [facility] [address] [id number] [address] [place] [id number] Aug, [facility] [address] [facility] [id number] [address] [place] [id number] Aug, [facility] [address] [facility] [id number] [address] [place] [id number] Jan, IMMUNIZATIONS No Known Immunizations SOCIAL HISTORY Never Assessed REASON FOR VISIT PLAN OF CARE VITAL SIGNS Height 69 in 2012-08-16 Weight 243.2 lbs 2012-08-16 Temperature 97.6 degrees Fahrenheit 2012-08-16 Heart Rate 76 bpm 2012-08-16 Respiratory Rate 18 2012-08-16 Blood pressure systolic 140 mmHg 2012-08-16 Blood pressure diastolic 88 mmHg 2012-08-16 MEDICATIONS Unknown Medications RESULTS No Results PROCEDURES Procedure Date Ordered Result Body Site ASSAY THYROID STIM HORMONE Aug 16, 2012 GLYCATED HEMOGLOBIN TEST Aug 16, 2012 MICROALBUMIN, SEMIQUANT Aug 16, 2012 COMPREHEN METABOLIC PANEL Aug 16, 2012 VENIPUNCT, ROUTINE* Aug 16, 2012 INSTRUCTIONS MEDICATIONS ADMINISTERED No Known [...]
--- OUTSIDE RECORDS SUMMARY | 2020-06-13 16:09 | XMS REPORT ---
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 Name Role Phone NU Dixon Unavailable PROBLEMS Type Condition ICD9-CM Code MPR88-IN Code Onset Dates Condition S tatus SNOMED Code Problem Hypothyroid E03.9 Active 69709044 Problem Neuropathy G62.9 Active 348246131 Problem Mixed hyperlipidemia E78.2 Active 115152553 Problem Overactive bladder N32.81 Active 2 77010032 Problem Irritable bowel syndrome with diarrhea K58.0 Active 140204121 Problem Gastroesophageal reflux disease with esophagitis K 21.0 Active 676902097 Problem Type 2 diabetes mellitus with hyperglycemia E11.65 Active 19791723 Problem care home current use of insulin Z79.4 Active 390361269 Problem Current non-adherence to medical treatment Z91.19 Active 5592038 Problem Recurrent major depressive disorder, in partial remission F33.41 Active 56740335 Problem Chronic fatigue R53.82 Active 8422 9001 Problem 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 Active 585252384 Problem Pulmonary emphysema, unspecified emphysema type J4 3.9 Active 81373801 Problem Thrombocytosis D47.3 Active 30457 09 Problem Acquired hypothyroidism E03.9 Active 365414085 Problem Essential (primary) hypertension I10 Active 30268343 Problem Chronic pain G89.29 Active 0625979 1 Problem Anxiety disorder, unspecified type F41.9 Active 778653460 Problem Major depressive disorder, recurrent episode, moderate F33.1 Active 130778672 Problem Hypertriglyceridemia E78.1 Active 507854660 Problem Gastroparesis K31.84 Active 296515 006 ALLERGIES No Information ENCOUNTERS Encounter Location Date Diagnosis [facility] [address] [facility] [id number] [address] [address] Jun, [facility] [address] [facility] [id number] [address] [place] [address] May, [facility] [address] [facility] [id number] [address] [place] [address] May, Chronic pain G89.29 [facility] [address] [facility] [id number] [address] [place] [address] Apr, Poison maryam dermatitis L23.7 [facility] [address] [facility] [id number] [address] [place] [address] Apr, Chronic pain G89.29 [place] [address] [facility] [id number] [address] [place] [address] March, Type 2 diabetes mellitus wit h hyperglycemia E11.65 [place] [address] [place] [id number] [address] [place] [address] March, Chronic pain G89.29 [place] [address] [place] [id number] [address] [place] [address] March, [address] [address] Feb, [place] [address] [place] [id number] [address] [place] [address] Feb, Other chronic pain G89.29 an d Chronic pain G89.29 [place] [address] [place] [id number] [address] [place] [address] Jan, Mixed hyperlipidemia E78.2 [place] [address] [facility] [id number] [address] [place] [address] Jan, Chronic pain G89.29 [place] [address] [place] [id number] [address] [place] [address] Jan, Type 2 diabetes mellitus wit h hyperglycemia E11.65 ; Mixed hyperlipidemia E78.2 ; 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29 [facility] [address] [facility] [id number] [address] [place] [address] Oct, [facility] [address] [facility] [id number] [address] [place] [address] Sep, [facility] [address] [facility] [id number] [address] [place] [address] Sep, Type 2 diabetes mellitus wit h hyperglycemia E11.65 [facility] [address] [facility] [id number] [address] [place] [address] Sep, Chronic pain G89.29 [facility] [address] [facility] [id number] [address] [place] [address] Sep, [facility] [address] [facility] [id number] [address] [place] [address] Sep, Type 2 diabetes mellitus wit h hyperglycemia E11.65 ; Irritable bowel syndrome with diarrhea K58.0 ; Gastroparesis K31.84 ; 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 and Dermatitis L30.9 [facility] [address] [facility] [id number] [address] [place] [address] Aug, Chronic pain G89.29 [facility] [address] [facility] [id number] [address] [place] [address] Jul, Chronic pain G89.29 [facility] [address] [facility] [id number] [address] [place] [address] Jun, Type 2 diabetes mellitus wit h hyperglycemia E11.65 ; Neuropathy G62.9 ; Recurrent major depressive disorder, in partial remission F33.41 ; Chronic pain G89.29 and Hypertriglyceridemia E78.1 [place] [address] [facility] [id number] [address] [place] [address] Jun, Hypothyroid E03.9 [place] [address] [facility] [id number] [address] [place] [address] 16 Jun, 2018 Major depressive disorder, r ecurrent episode, moderate F33.1 and Anxiety disorder, unspecified type F41.9 [place] [address] [facility] [id number] [address] [place] [address] Jun, [place] [address] [facility] [id number] [address] [place] [address] Jun, Type 2 diabetes mellitus wit h hyperglycemia E11.65 ; 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 ; Recurrent major depressive disorder, in partial remission F33.41 ; Hypothyroid E03.9 ; Candidal dermatitis B37.2 and Weakness generalized R53.1 [place] [address] [facility] [id number] [address] [place] [address] May, [place] [address] [facility] [id number] [address] [place] [address] May, [place] [address] [facility] [id number] [address] [place] [address] May, [place] [address] [facility] [id number] [address] [place] [address] May, Generalized abdominal pain R 10.84 and Candidal dermatitis B37.2 [facility] [address] [facility] [id number] [address] [place] [address] May, [place] [address] [facility] [id number] [address] [place] [address] May, [place] [address] [facility] [id number] [address] [place] [address] May, Nodular radiologic density R 93.8 ; Weight loss, unintentional R63.4 and Pulmonary emphysema, unspecified emphysema type J43.9 [facility] [address] [id number] [address] [place] [address] May, Chronic pain G89.29 [facility] [address] [facility] [id number] [address] [place] [address] 09 May, 2018 Syncope and collapse R55 ; C hronic fatigue R53.[address] lung screening R91.8 [facility] [address] [id number] [address] [place] [address] May, [facility] [address] [facility] [id number] [address] [place] [address] Apr, Chronic fatigue R53.82 ; Abn ormal chest CT R93.8 ; Elevated erythrocyte sedimentation rate R70.0 ; Hypothyroid E03.9 and Recurrent major depressive disorder, in partial remission F33.41 [facility] [address] [facility] [id number] [address] [place] [address] Apr, Hypothyroid E03.9 [facility] [address] [id number] [address] [place] [address] Apr, Depression F32.9 [facility] [address] [facility] [id number] [address] [place] [address] Apr, [facility] [address] [facility] [id number] [address] [place] [address] March, [facility] [address] [facility] [id number] [address] [place] [address] March, Hypothyroid E03.9 [facility] [address] [id number] [address] [place] [address] March, Diabetes mellitus E11.9 and Hypothyroid E03.9 [facility] [address] [id number] [address] [place] [address] March, Diabetes mellitus E11.9 [facility] [address] [facility] [id number] [address] [place] [address] March, Hypothyroid E03.9 and Elevat ed liver enzymes R74.8 [place] [address] [facility] [id number] [address] [place] [address] March, Type 2 diabetes mellitus wit h hyperglycemia E11.65 ; 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 ; Pulmonary emphysema, unspecified emphysema type J43.9 ; Hypothyroid E03.9 ; Neuropathy G62.9 ; Mixed hyperlipidemia E78.2 ; Chronic pain G89.29 ; Gastroesophageal reflux disease with esophagitis K21.0 ; Irritable bowel syndrome with diarrhea K58.0 ; Overactive bladder N32.81 and Recurrent major depressive disorder, in partial remission F33.41 [place] [address] [facility] [id number] [address] [place] [address] Feb, Chronic pain G89.29 [place] [address] [place] [id number] [place] [address] Feb, Type 2 diabetes mellitus wit h hyperglycemia E11.65 and Skin lesion of scalp L98.9 [place] [address] [facility] [id number] [address] [place] [address] Feb, [place] [address] [place] [id number] [address] [place] [address] Jan, Type 2 diabetes mellitus wit h hyperglycemia E11.65 ; care home current use of insulin Z79.4 ; Essential (primary) hypertension I10 ; Pulmonary emphysema, unspecified emphysema type J43.9 ; Chronic pain G89.29 ; Controlled substance agreement signed Z79.899 ; Hypothyroid E03.9 ; Neuropathy G62.9 ; Gastroesophageal reflux disease with esophagitis K21.0 ; Overactive bladder N32.81 ; Depression F32.9 and Irritable bowel syndrome with diarrhea K58.0 [place] [address] [facility] [id number] [address] [place] [address] Jan, [place] [address] [place] [id number] [address] [place] [address] Jan, Controlled substance agreeme nt signed Z79.899 [place] [address] [place] [id number] [address] [place] [address] 08 Dec, 2017 Type 2 diabetes mellitus wit h hyperglycemia E11.65 ; Controlled substance agreement signed Z79.899 ; 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 ; Essential (primary) hypertension I10 ; Hypothyroid E03.9 ; Neuropathy G62.9 ; Depression F32.9 ; Mixed hyperlipidemia E78.2 ; Irritable bowel syndrome with diarrhea K58.0 ; Gastroesophageal reflux disease with esophagitis K21.0 ; Thrombocytosis D47.3 ; Current non-adherence to medical treatment Z91.19 and Overweight (BMI 25.0-29.9) E66.3 [place] [address] [id number] [address] [place] [address] 02 Dec, 2018 Controlled substance agreeme nt signed Z79.899 [place] [address] [facility] [id number] [address] [place] [address] 29 Nov, 2017 Type 2 diabetes mellitus wit h hyperglycemia E11.65 and Current non- adherence to medical treatment Z91.19 [place] [address] [id number] [address] [place] [address] Nov, [place] [address] [id number] [address] [place] [address] Nov, Chronic pain G89.29 [place] [address] [facility] [id number] [address] [place] [address] Nov, [place] [address] [id number] [address] [place] [address] Nov, Hypothyroid E03.9 [place] [address] [facility] [id number] [address] [place] [address] Nov, Hypothyroid E03.9 [place] [address] [facility] [id number] [address] [place] [address] Nov, Pulmonary emphysema, unspeci fied emphysema type J43.9 and Irritable bowel syndrome with diarrhea K58.0 [place] [address] [facility] [id number] [address] [place] [address] Oct, [facility] [address] [facility] [id number] [address] [place] [address] Oct, [facility] [address] [facility] [id number] [address] [place] [address] Oct, [facility] [address] [facility] [id number] [address] [place] [address] Oct, [facility] [address] [place] [id number] [place] [address] Oct, Chronic pain G89.29 [place] [address] [place] [id number] [place] [address] Oct, Diabetes mellitus E11.9 ; De pression F32.9 ; Mixed hyperlipidemia E78.2 ; Hypotension, unspecified hypotension type I95.9 ; Pulmonary emphysema, unspecified emphysema type J43.9 and Weight loss, unintentional R63.4 [place] [address] [place] [id number] [address] [place] [address] Oct, Chronic pain G89.29 [place] [address] [address] Sep, Chronic pain G89.29 [place] [address] [place] [id number] [place] [address] Sep, Hypothyroid E03.9 and Diabet es mellitus E11.9 [place] [address] [place] [id number] [address] [place] [address] Aug, Type 2 diabetes mellitus wit h hyperglycemia E11.65 ; care home current use of insulin Z79.4 ; Essential (primary) hypertension I10 ; Hypothyroid E03.9 ; Neuropathy G62.9 ; Chronic pain G89.29 ; Mixed hy perlipidemia E78.2 and Encounter for immunization Z23 [facility] [address] [place] [id number] [address] [place] [address] Aug, Chronic pain G89.29 [place] [address] [place] [address] Aug, Overactive bladder N32.81 ; Diabetes mellitus E11.9 and Chronic pain G89.29 [facility] [address] [facility] [id number] [address] [place] [address] Jul, [facility] [address] [place] [id number] [address] [place] [address] Jun, [facility] [address] [place] [id number] [address] [place] [address] Jun, [facility] [address] [place] [id number] [place] [address] Jun, Hypothyroid E03.9 [facility] [address] [place] [id number] [place] [address] Jun, Diabetes mellitus E11.9 ; Hy pothyroid E03.9 ; Neuropathy G62.9 ; Chronic pain G89.29 and Neck mass R22.1 [facility] [address] [place] [id number] [address] [place] [address] Apr, [facility] [address] [address] Apr, Acute cystitis without hemat uria N30.00 [facility] [address] [place] [id number] [address] [place] [address] March, [facility] [address] [place] [id number] [address] [place] [address] March, [facility] [address] [place] [id number] [address] [place] [address] March, Near syncope R55 [facility] [address] [place] [id number] [place] [address] Feb, [facility] [address] [place] [id number] [address] [place] [address] Feb, Chronic pain G89.29 [facility] [address] [place] [id number] [place] [address] Feb, [facility] [address] [place] [id number] [address] [place] [address] Feb, [facility] [address] [place] [id number] [address] [place] [address] Jan, Chronic pain G89.29 [facility] [address] [address] Jan, [facility] [address] [place] [id number] [place] [address] 16 Jan, 2017 [facility] [address] [address] 14 Jan, 2017 Diabetes mellitus E11.9 ; Hy pothyroid E03.9 ; GERD (gastroesophageal reflux disease) K21.9 ; Insomnia G47.00 ; Functional 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 ; Neuropathy G62.9 ; Depression F32.9 ; Chronic pain G89.29 ; Irritable bowel syndrome with diarrhea K58.0 ; Overactive bladder N32.81 ; Mixed hyperlipidemia E78.2 and Bronchitis J40 [facility] [address] [address] Dec, [facility] [address] [place] [id number] [address] [place] [address] Dec, [facility] [address] [place] [id number] [address] [place] [address] Dec, [facility] [address] [place] [id number] [address] [place] [address] Dec, [facility] [address] [place] [id number] [address] [place] [address] Dec, Chronic pain G89.29 [facility] [address] [place] [id number] [address] [place] [address] Dec, [facility] [address] [place] [id number] [address] [place] [address] Dec, [facility] [address] [place] [address] Dec, Type 2 diabetes mellitus wit h foot ulcer E11.621 [facility] [address] [place] [address] 17 Dec, 2016 Type 2 diabetes mellitus wit h foot ulcer E11.621 [facility] [address] [address] 14 Dec, 2016 HTN (hypertension) I10 ; Dep ression F32.9 ; Type 2 diabetes mellitus with foot ulcer E11.621 ; Functional 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 ; Irritable bowel syndrome with diarrhea K58.0 ; Chronic pain G89.29 ; Insomnia G47.00 ; Overactive bladder N32.81 ; Mixed hyperlipidemia E78.2 ; Gastroesophageal reflux disease with esophagitis K21.0 and Acquired hypothyroidism E03.9 [place] [address] [address] Nov, [place] [address] [place] [id number] [address] [place] [address] Oct, [place] [address] [address] Oct, [place] [address] [address] Oct, [place] [address] [place] [id number] [address] [place] [address] Sep, Functional 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 ; HTN (hypertension) I10 ; Diabetes mellitus E11.9 ; Depression F32.9 ; Overactive bladder N32.81 ; Mixed hyperlipidemia E78.2 ; Gastroesophageal reflux disease without esophagitis K21.9 ; Chronic pain G89.29 ; Insomnia G47.00 and Acquired hypothyroidism E03.9 [place] [address] [place] [id number] [address] [place] [address] Sep, [place] [address] [place] [id number] [address] [place] [address] 11 Aug, 2016 Encounter for immunization Z 23 [place] [address] [place] [id number] [address] [place] [address] 06 Aug, 2016 [place] [address] [place] [id number] [address] [place] [address] 09 Jul, 2016 [place] [address] [address] Jun, Type 2 diabetes mellitus wit hout complications E11.9 ; HTN (hypertension) I10 ; Hypothyroid E03.9 ; Neuropathy G62.9 ; Depression F32.9 ; Chronic pain G89.29 ; GERD (gastroesophageal reflux disease) K21.9 ; Insomnia G47.00 ; Overactive bladder N32.81 ; Mixed hyperlipidemia E78.2 ; Diarrhea of infectious origin A09 and Environmental allergies Z91.09 [place] [address] [address] Apr, [place] [address] [address] March, Hypothyroidism, unspecified E03.9 and Mixed hyperlipidemia E78.2 [place] [address] [address] March, Diabetes mellitus E11.9 ; HT N (hypertension) I10 ; Hypothyroid E03.9 ; Depression F32.9 ; Overactive bladder N32.81 ; Other chronic pain G89.29 ; Lumbago with sciatica, unspecified side M54.40 ; Environmental allergies Z91.09 and Gastroesophageal reflux disease, esophagitis presence not specified K21.9 [place] [address] [place] [id number] [address] [place] [address] March, [place] [address] [address] Jan, HTN (hypertension) I10 ; Hyp othyroid E03.9 ; Neuropathy G62.9 ; Diabetes mellitus E11.9 ; Chronic pain G89.29 ; GERD (gastroesophageal reflux disease) K21.9 ; Overactive bladder N32.81 and Depression F32.9 [place] [address] [place] [id number] [address] [place] [address] 12 Dec, 2015 Ear pain, left H92.02 ; HTN (hypertension) I10 ; Hypothyroid E03.9 ; Neuropathy G62.9 ; Diabetes mellitus E11.9 ; Depression F32.9 ; GERD (gastroesophageal reflux disease) K21.9 ; Insomnia G47.00 and Overactive bladder N32.81 [place] [address] [place] [address] Nov, Overactive bladder N32.81 an d Chronic pain G89.29 [place] [address] [address] Nov, Kidney failure N19 [place] [address] [address] Nov, [place] [address] [address] Nov, [place] [address] [address] Nov, Diabetes mellitus E11.9 ; De pression F32.9 ; Chronic pain G89.29 ; GERD (gastroesophageal reflux disease) K21.9 ; Insomnia G47.00 ; HTN (hypertension) I10 ; Hypothyroid E03.9 ; COPD (chronic obstructive pulmonary disease) J44.9 ; Bladder incontinence R32 and Incontinence R32 [place] [address] [place] [address] Sep, Type 2 diabetes mellitus wit h foot ulcer E11.621 and Chromosomal abnormality, 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 [place] [address] [place] [id number] [address] [place] [address] Sep, [place] [address] [place] [id number] [address] [place] [address] Aug, [place] [address] [place] [address] Aug, [address] [address] Aug, HTN (hypertension) I10 ; Enc ounter for immunization Z23 ; Hypothyroid E03.9 ; Neuropathy G62.9 ; Diabetes mellitus E11.9 ; Depression F32.9 ; Chronic pain G89.29 ; GERD (gastroesophageal reflux disease) K21.9 ; Insomnia G47.00 and COPD (chronic obstructive pulmonary disease) J44.[address] [address] Jun, [address] [address] Jun, [address] [address] May, Essential hypertension, ivis gn 401.1 ; Unspecified hypothyroidism 244.9 ; Insomnia, unspecified 780.52 ; Shortness of breath 786.05 ; Depression 311 ; COPD (chronic obstructive pulmonary disease) 496 ; GERD (gastroesophageal reflux disease) 530.81 and Diabetes 1.5, 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 [address] May, [address] [address] May, [address] [address] May, Shortness of breath 786.05 ; Essential hypertension, benign 401.1 ; Diabetes mellitus 250.00 ; Hyperlipidemia 272.4 ; Hypothyroid 244.9 ; Insomnia 780.52 and Cough 786.[address] [address] Apr, [address] [address] March, Shortness of breath 786.05 ; Nausea with vomiting 787.01 ; Essential hypertension, benign 401.1 ; Diabetes mellitus 250.00 ; Hyperlipidemia 272.4 and Hypothyroid 244.9 [facility] [address] [id number] [address] [place] [id number] 14 Feb, 2015 [facility] [address] [id number] [address] [place] [id number] Feb, [facility] [address] [id number] [address] [place] [id number] Jan, [facility] [address] [id number] [address] [place] [address] Jan, [facility] [address] [id number] [address] [place] [address] Jan, [facility] [address] [facility] [id number] [address] [place] [address] Jan, [facility] [address] [id number] [address] [place] [address] Jan, [facility] [address] [id number] [address] [place] [address] Jan, [facility] [address] [facility] [id number] [address] [place] [address] Jan, [facility] [address] [facility] [id number] [address] [place] [address] Jan, [facility] [address] [id number] [address] [place] [address] Jan, [facility] [address] [id number] [address] [place] [address] Jan, [facility] [address] [id number] [address] [place] [address] Dec, [facility] [address] [id number] [address] [place] [address] Dec, [facility] [address] [id number] [address] [place] [address] Dec, 2014 [facility] [address] [id number] [address] [place] [address], [place] [address] Dec, 2014 [facility] [address] [id number] [address] [place] [address], [place] [address] Dec, 2014 [facility] [address] [id number] [address] [place] [address], [place] [address] Dec, 2014 [facility] [address] [id number] [address] [place] [address], [place] [address] Dec, 2014 [facility] [address] [id number] [address] [place] [address], [place] [address] Dec, 2014 [facility] [address] [id number] [address] [place] [address], [place] [address] Dec, 2014 [facility] [address] [id number] [address] [place] [address], [place] [address] Dec, 2014 [facility] [address] [id number] [address] [place] [address], [place] [address] Oct, [facility] [address] [id number] [address] [place] [address], [place] [address] Oct, [facility] [address] [id number] [address] [place] [address], [place] [address] Oct, [facility] [address] [id number] [address] [place] [address], [place] [address] Oct, [facility] [address] [id number] [address] [place] [address] Oct, [facility] [address] [id number] [address] [place] [address], [place] [address] Oct, [facility] [address] [id number] [address] [place] [address], [place] [address] Oct, [facility] [address] [id number] [address] [place] [address], [place] [address] Oct, [facility] [address] [id number] [address] [place] [address], [place] [address] Oct, [facility] [address] [id number] [address] [place] [address], [place] [address] Oct, [facility] [address] [id number] [address] [place] [address], [place] [address] Oct, [facility] [address] [id number] [address] [place] [address], [place] [address] Oct, [facility] [address] [id number] [address] [place] [address], [place] [address] Oct, [facility] [address] [id number] [address] [place] [address], [place] [address] Oct, [facility] [address] [id number] [address] [place] [address], [place] [address] Sep, [facility] [address] [id number] [address] [place] [address], [place] [address] Sep, [facility] [address] [id number] [address] [place] [address], [place] [address] Sep, [facility] [address] [id number] [address] [place] [address], [place] [address] Sep, [facility] [address] [id number] [address] [place] [address], [place] [address] Sep, [facility] [address] [id number] [address] [place] [address], [place] [address] Sep, [facility] [address] [id number] [address] [place] [address], [place] [address] Sep, [facility] [address] [id number] [address] [place] [address], [place] [address] Sep, [facility] [address] [id number] [address] [place] [address], [place] [address] Sep, [facility] [address] [id number] [address] [place] [address], [place] [address] Aug, [facility] [address] [id number] [address] [place] [address], [place] [address] Aug, [facility] [address] [id number] [address] [place] [address], [place] [address] Aug, [facility] [address] [id number] [address] [place] [address], [place] [address] Aug, [facility] [address] [id number] [address] [place] [address], [place] [address] 16 Aug, 2014 [facility] [address] [id number] [address] [place] [address], [place] [address] Aug, [facility] [address] [id number] [address] [place] [address], [place] [address] Aug, [facility] [address] [id number] [address] [place] [address], [place] [address] Aug, [facility] [address] [id number] [address] [place] [address], [place] [address] Aug, [facility] [address] [id number] [address] [place] [address], [place] [address] 29 Sep, 2013 [facility] [address] [id number] [address] [place] [address], [place] [address] 29 Sep, 2013 [facility] [address] [id number] [address] [place] [address], [place] [address] 25 Sep, 2013 [facility] [address] [id number] [address] [place] [address], [place] [address] 25 Sep, 2013 [facility] [address] [id number] [address] [place] [address], [place] [address] 25 Jul, 2013 [facility] [address] [id number] [address] [place] [address], [place] [address] 25 Jul, 2013 [facility] [address] [id number] [address] [place] [address], [place] [address] 25 Jul, 2013 [facility] [address] [id number] [facility] [place] [address] Jul, [facility] [address] [id number] [facility] [place] [address] Jul, [facility] [address] [id number] [facility] [place] [address] Jul, [facility] [address] [id number] [facility] [place] [address] Jun, [facility] [address] [id number] [facility] [place] [address] Jun, [facility] [address] [id number] [address] [place] [address], [place] [address] Jun, [facility] [address] [id number] [address] [place] [address], [place] [address] Jun, [facility] [address] [id number] [address] [place] [address], [place] [address] Jun, [facility] [address] [id number] [address] [place] [address], [place] [address] Jun, [facility] [address] [id number] [address] [place] [address], [place] [address] Jun, [facility] [address] [id number] [address] [place] [address], [place] [address] Jun, [facility] [address] [id number] [address] [place] [address], [place] [address] Jun, [facility] [address] [id number] [address] [place] [address], [place] [address] Jun, [facility] [address] [id number] [address] [place] [address], [place] [address] Jun, [facility] [address] [id number] [address] [place] [address], [place] [address] Jun, [facility] [address] [id number] [address] [place] [address], [place] [address] May, [facility] [address] [id number] [facility] [place] [address] May, [facility] [address] [id number] [facility] [place] [address] May, [facility] [address] [id number] [address] [place] [address] May, [facility] [address] [id number] [address] [place] [address], [place] [address] May, [facility] [address] [id number] [facility] [place] [address] May, [facility] [address] [id number] [address] [place] [address], [place] [address] March, [facility] [address] [id number] [address] [place] [address], [place] [address] March, [facility] [address] [id number] [address] [place] [address], [place] [address] March, [facility] [address] [id number] [address] [place] [address], [place] [address] March, [facility] [address] [id number] [address] [place] [address], [place] [address] March, [facility] [address] [id number] [address] [place] [address], [place] [address] March, [facility] [address] [id number] [address] [place] [address], [place] [address] Feb, [facility] [address] [id number] [address] [place] [address], [place] [address] Feb, [facility] [address] [id number] [address] [place] [address], [place] [address] Feb, [facility] [address] [id number] [address] [place] [address], [place] [address] Feb, [facility] [address] [id number] [address] [place] [address], [place] [address] Jan, [facility] [address] [id number] [facility] [place] [address] Jan, [facility] [address] [id number] [address] [place] [address], [place] [address] Jan, [facility] [address] [id number] [address] [place] [address], [place] [address] Jan, [facility] [address] [id number] [address] [place] [address], [place] [address] Jan, [facility] [address] [id number] [address] [place] [address], [place] [address] Jan, [facility] [address] [id number] [address] [place] [address], [place] [address] Jan, [facility] [address] [id number] [address] [place] [address], [place] [address] Jan, [facility] [address] [id number] [address] [place] [address], [place] [address] Jan, [facility] [address] [id number] [address] [place] [address], [place] [address] Jan, [facility] [address] [id number] [address] [place] [address], [place] [address] Jan, [facility] [address] [id number] [address] [place] [address], [place] [address] Jan, [facility] [address] [id number] [address] [place] [address], [place] [address] Dec, [facility] [address] [id number] [address] [place] [address], [place] [address] Dec, [facility] [address] [id number] [address] [place] [address], [place] [address] Dec, [facility] [address] [id number] [address] [place] [address], [place] [address] Dec, [facility] [address] [id number] [address] [place] [address], [place] [address] Dec, [facility] [address] [id number] [address] [place] [address], [place] [address] Dec, [facility] [address] [id number] [address] [place] [address], [place] [address] Nov, [facility] [address] [id number] [address] [place] [address], [place] [address] Nov, [facility] [address] [id number] [address] [place] [address], [place] [address] Oct, [facility] [address] [id number] [address] [place] [address], [place] [address] Oct, [facility] [address] [id number] [address] [place] [address], [place] [address] Oct, [facility] [address] [id number] [address] [place] [address], [place] [address] Oct, [facility] [address] [id number] [address] [place] [address], [place] [address] Oct, [facility] [address] [id number] [address] [place] [address], [place] [address] Oct, [facility] [address] [id number] [address] [place] [address] Sep, [facility] [address] [id number] [address] [place] [address] Sep, [facility] [address] [id number] [address] [place] [address], [place] [address] Sep, [facility] [address] [id number] [address] [place] [address], [place] [address] Sep, [facility] [address] [id number] [address] [place] [address] Aug, [facility] [address] [id number] [address] [place] [address] Aug, [facility] [address] [id number] [address] [place] [address], [place] [address] Aug, [facility] [address] [id number] [address] [place] [address], [place] [address] 17 Jul, 2013 [facility] [address] [id number] [address] [place] [address], [place] [address] 14 Jul, 2013 [facility] [address] [id number] [address] [place] [address], [place] [address] 04 Jul, 2013 [facility] [address] [id number] [address] [place] [address], [place] [address] Jun, [facility] [address] [id number] [address] [place] [address], [place] [address] Jun, [facility] [address] [id number] [address] [place] [address], [place] [address] Jun, [facility] [address] [id number] [address] [place] [address], [place] [address] Apr, [facility] [address] [id number] [address] [place] [address], [place] [address] Apr, [facility] [address] [id number] [address] [place] [address], [place] [address] March, [facility] [address] [id number] [address] [place] [address], [place] [address] March, [facility] [address] [id number] [address] [place] [address], [place] [address] March, [facility] [address] [id number] [address] [place] [address], [place] [address] March, [facility] [address] [id number] [address] [place] [address], [place] [address] Feb, [facility] [address] [id number] [address] [place] [address], [place] [address] Jan, [facility] [address] [id number] [address] [place] [address], [place] [address] 13 Dec, 2012 [facility] [address] [id number] [address] [place] [address], [place] [address] 08 Dec, 2012 [facility] [address] [id number] [address] [place] [address], [place] [address] 07 Dec, 2012 [facility] [address] [id number] [address] [place] [address], [place] [address] Nov, [facility] [address] [id number] [address] [place] [address], [place] [address] Oct, [facility] [address] [id number] [address] [place] [address], [place] [address] Oct, [facility] [address] [id number] [address] [place] [address], [place] [address] Sep, [facility] [address] [id number] [address] [place] [address], [place] [address] Sep, [facility] [address] [id number] [address] [place] [address], [place] [address] Sep, [facility] [address] [id number] [address] [place] [address], [place] [address] Sep, [facility] [address] [id number] [address] [place] [address], [place] [address] Sep, [facility] [address] [id number] [address] [place] [address], [place] [address] Sep, [facility] [address] [id number] [address] [place] [address], [place] [address] Sep, [facility] [address] [id number] [address] [place] [address], [place] [address] Aug, [facility] [address] [id number] [address] [place] [address], [place] [address] Aug, [facility] [address] [id number] [address] [place] [address], [place] [address] 10 Aug, 2012 [facility] [address] [id number] [address] [place] [address], [place] [address] 10 Aug, 2012 [facility] [address] [id number] [address] [place] [address], [place] [address] 08 Aug, 2012 [facility] [address] [id number] [address] [place] [address], [place] [address] Aug, [facility] [address] [id number] [address] [place] [address], [place] [address] Aug, [facility] [address] [id number] [address] [place] [address], [place] [address] Aug, [facility] [address] [id number] [address] [place] [address], [place] [address] Jul, [facility] [address] [id number] [address] [place] [address], [place] [address] Jul, [facility] [address] [id number] [address] [place] [address], [place] [address] Jun, [facility] [address] [id number] [address] [place] [address], [place] [address] May, [facility] [address] [id number] [address] [place] [address], [place] [address] Apr, [facility] [address] [id number] [address] [place] [address], [place] [address] Apr, [facility] [address] [id number] [address] [place] [address], [place] [address] Apr, [facility] [address] [id number] [address] [place] [address], [place] [address] March, [facility] [address] [id number] [address] [place] [address], [place] [address] March, [facility] [address] [id number] [address] [place] [address], [place] [address] March, [facility] [address] [id number] [address] [place] [address], [place] [address] March, [facility] [address] [id number] [address] [place] [address], [place] [address] March, [facility] [address] [id number] [address] [place] [address], [place] [address] March, [facility] [address] [id number] [address] [place] [address], [place] [address] March, [facility] [address] [id number] [address] [place] [address], [place] [address] Jan, [facility] [address] [id number] [address] [place] [address], [place] [address] Jan, [facility] [address] [id number] [address] [place] [address], [place] [address] Jan, [facility] [address] [id number] [address] [place] [address], [place] [address] Jan, [facility] [address] [id number] [address] [place] [address], [place] [address] Jan, [facility] [address] [id number] [address] [place] [address], [place] [address] Dec, [facility] [address] [id number] [address] [place] [address], [place] [address] Dec, [facility] [address] [id number] [address] [place] [address], [place] [address] Nov, [facility] [address] [id number] [address] [place] [address], [place] [address] Nov, [facility] [address] [id number] [address] [place] [address], [place] [address] Nov, [facility] [address] [id number] [address] [place] [address], [place] [address] Nov, [facility] [address] [id number] [address] [place] [address], [place] [address] Oct, [facility] [address] [id number] [address] [place] [address], [place] [address] 06 Oct, 2011 [facility] [address] [id number] [address] [place] [address], [place] [address] 14 Sep, 2011 [facility] [address] [id number] [address] [place] [address], [place] [address] 10 Sep, 2011 [facility] [address] [id number] [address] [place] [address], [place] [address] 10 Sep, 2011 [facility] [address] [id number] [address] [place] [address], [place] [address] 11 May, 2011 [facility] [address] [id number] [address] [place] [address], [place] [address] 20 Nov, 2010 [facility] [address] [id number] [address] [place] [address], [place] [address] 29 Oct, 2010 [facility] [address] [id number] [address] [place] [address], [place] [address] 14 Oct, 2010 [facility] [address] [id number] [address] [place] [address], [place] [address] Oct, [facility] [address] [id number] [address] [place] [address], [place] [address] 15 Sep, 2010 [facility] [address] [id number] [address] [place] [address], [place] [address] Sep, [facility] [address] [id number] [address] [place] [address], [place] [address] Aug, [facility] [address] [id number] [address] [place] [address], [place] [address] March, [facility] [address] [id number] [address] [place] [address], [place] [address] Oct, [facility] [address] [id number] [address] [place] [address], [place] [address] 17 Oct, 2009 [facility] [address] [id number] [address] [place] [address] Oct, [facility] [address] [facility] [id number] [address] [place] [address] Oct, [facility] [address] [facility] [id number] [address] [place] [address] Sep, [facility] [address] [facility] [id number] [address] [place] [id number] Sep, [facility] [address] [facility] [id number] [address] [place] [address] Sep, [facility] [address] [facility] [id number] [address] [place] [id number] Aug, [facility] [address] [facility] [id number] [address] [place] [id number] Aug, [facility] [address] [facility] [id number] [address] [place] [id number] Aug, [facility] [address] [facility] [id number] [address] [place] [id number] Jan, IMMUNIZATIONS No Known Immunizations SOCIAL HISTORY [...]
--- OUTSIDE RECORDS SUMMARY | 2020-06-13 16:09 | XMS REPORT ---
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 Care Air Vice Marshal Name Role Phone Migration, Doctor Unavailable Unavailable PROBLEMS Type Condition ICD9-CM Code TLF96-UH Code Onset Dates Condition S tatus SNOMED Code Problem Hypothyroid E03.9 Active 85009245 Problem Neuropathy G62.9 Active 272724995 Problem Mixed hyperlipidemia E78.2 Active 233857640 Problem Overactive bladder N32.81 Active 2 30055209 Problem Irritable bowel syndrome with diarrhea K58.0 Active 616966252 Problem Gastroesophageal reflux disease with esophagitis K 21.0 Active 502724986 Problem Type 2 diabetes mellitus with hyperglycemia E11.65 Active 17764977 Problem 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.4 Active 733971244 Problem Current non-adherence to medical treatment Z91.19 Active 2211808 Problem Recurrent major depressive disorder, in partial remission F33.41 Active 95432892 Problem Chronic fatigue R53.82 Active 8422 9001 Problem 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 Active 379447857 Problem Pulmonary emphysema, unspecified emphysema type J4 3.9 Active 70418515 Problem Thrombocytosis D47.3 Active 65091 09 Problem Acquired hypothyroidism E03.9 Active 740913031 Problem Essential (primary) hypertension I10 Active 13970874 Problem Chronic pain G89.29 Active 4316398 1 Problem Anxiety disorder, unspecified type F41.9 Active 208254700 Problem Major depressive disorder, recurrent episode, moderate F33.1 Active 043729887 Problem Hypertriglyceridemia E78.1 Active 355360905 Problem Gastroparesis K31.84 Active 777494 006 ALLERGIES No Information ENCOUNTERS Encounter Location Date Diagnosis [facility] [address] [facility] [id number] [address] [place] [address] May, [facility] [address] [facility] [id number] [address] [place] [address] May, Chronic pain G89.29 [facility] [address] [facility] [id number] [address] [place] [address] Apr, Poison maryam dermatitis L23.7 [facility] [address] [facility] [id number] [address] [place] [address] Apr, Chronic pain G89.29 [facility] [address] [facility] [id number] [address] [place] [address] March, Type 2 diabetes mellitus wit h hyperglycemia E11.65 [facility] [address] [facility] [id number] [address] [place] [address] March, Chronic pain G89.29 [facility] [address] [facility] [id number] [address] [place] [address] March, [address] [address] Feb, [facility] [address] [facility] [id number] [address] [place] [address] Feb, Other chronic pain G89.29 an d Chronic pain G89.29 [facility] [address] [facility] [id number] [address] [place] [address] Jan, Mixed hyperlipidemia E78.2 [facility] [address] [facility] [id number] [address] [place] [address] Jan, Chronic pain G89.29 [facility] [address] [facility] [id number] [address] [place] [address] Jan, Type 2 diabetes mellitus wit h hyperglycemia E11.65 ; Mixed hyperlipidemia E78.2 ; 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.4 ; Acquired hypothyroidism E03.9 and Essential (primary) hypertension I10 [facility] [address] [facility] [id number] [address] [place] [address] Dec, Chronic pain G89.29 [facility] [address] [facility] [id number] [address] [place] [address] Nov, Chronic pain G89.29 [facility] [address] [place] [id number] [address] [place] [address] Nov, [facility] [address] [place] [id number] [address] [place] [address] Oct, Chronic pain G89.29 [facility] [address] [place] [id number] [address] [place] [address] Oct, [facility] [address] [place] [id number] [place] [address] Sep, [facility] [address] [place] [id number] [place] [address] Sep, Type 2 diabetes mellitus wit h hyperglycemia E11.65 [place] [address] [address] Sep, Chronic pain G89.29 [place] [address] [address] Sep, [facility] [address] [address] Sep, Type 2 diabetes mellitus wit h hyperglycemia E11.65 ; Irritable bowel syndrome with diarrhea K58.0 ; Gastroparesis K31.84 ; 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 and Dermatitis L30.9 [facility] [address] [place] [id number] [address] [place] [address] Aug, Chronic pain G89.29 [place] [address] [place] [id number] [address] [place] [address] Jul, Chronic pain G89.29 [place] [address] [place] [id number] [place] [address] Jun, Type 2 diabetes mellitus wit h hyperglycemia E11.65 ; Neuropathy G62.9 ; Recurrent major depressive disorder, in partial remission F33.41 ; Chronic pain G89.29 and Hypertriglyceridemia E78.1 [facility] [address] [place] [id number] [address] [place] [address] Jun, Hypothyroid E03.9 [facility] [address] [id number] [address] [place] [address] 16 Jun, 2018 Major depressive disorder, r ecurrent episode, moderate F33.1 and Anxiety disorder, unspecified type F41.9 [facility] [address] [id number] [address] [place] [address] Jun, [facility] [address] [facility] [id number] [address] [place] [address] Jun, Type 2 diabetes mellitus wit h hyperglycemia E11.65 ; 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.4 ; Recurrent major depressive disorder, in partial remission F33.41 ; Hypothyroid E03.9 ; Candidal dermatitis B37.2 and Weakness generalized R53.1 [place] [id number] [facility] [id number] [address] [place] [address] May, [place] [address] [facility] [id number] [address] [place] [address] May, [facility] [address] [id number] [address] [place] [address] May, [place] [address] [facility] [id number] [address] [place] [address] May, Generalized abdominal pain R 10.84 and Candidal dermatitis B37.2 [facility] [address] [facility] [id number] [address] [place] [address] May, [place] [address] [facility] [id number] [address] [place] [address] May, [place] [address] [facility] [id number] [address] [place] [address] May, Nodular radiologic density R 93.8 ; Weight loss, unintentional R63.4 and Pulmonary emphysema, unspecified emphysema type J43.9 [facility] [address] [facility] [id number] [address] [place] [address] May, Chronic pain G89.29 [place] [address] [id number] [address] [place] [address] 09 May, 2018 Syncope and collapse R55 ; C hronic fatigue R53.[address] lung screening R91.8 [facility] [address] [id number] [address] [place] [address] May, [facility] [address] [facility] [id number] [address] [place] [address] Apr, Chronic fatigue R53.82 ; Abn ormal chest CT R93.8 ; Elevated erythrocyte sedimentation rate R70.0 ; Hypothyroid E03.9 and Recurrent major depressive disorder, in partial remission F33.41 [facility] [address] [id number] [address] [place] [address] Apr, Hypothyroid E03.9 [facility] [address] [facility] [id number] [address] [place] [address] Apr, Depression F32.9 [facility] [address] [facility] [id number] [address] [place] [address] Apr, [facility] [address] [facility] [id number] [address] [place] [address] March, [facility] [address] [facility] [id number] [address] [place] [address] March, Hypothyroid E03.9 [facility] [address] [facility] [id number] [address] [place] [address] March, Diabetes mellitus E11.9 and Hypothyroid E03.9 [facility] [address] [id number] [address] [place] [address] March, Diabetes mellitus E11.9 [facility] [address] [facility] [id number] [address] [place] [address] March, Hypothyroid E03.9 and Elevat ed liver enzymes R74.8 [facility] [address] [facility] [id number] [address] [place] [address] March, Type 2 diabetes mellitus wit h hyperglycemia E11.65 ; 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.4 ; Pulmonary emphysema, unspecified emphysema type J43.9 ; Hypothyroid E03.9 ; Neuropathy G62.9 ; Mixed hyperlipidemia E78.2 ; Chronic pain G89.29 ; Gastroesophageal reflux disease with esophagitis K21.0 ; Irritable bowel syndrome with diarrhea K58.0 ; Overactive bladder N32.81 and Recurrent major depressive disorder, in partial remission F33.41 [place] [address] [facility] [id number] [address] [place] [address] Feb, Chronic pain G89.29 [place] [address] [facility] [id number] [address] [place] [address] Feb, Type 2 diabetes mellitus wit h hyperglycemia E11.65 and Skin lesion of scalp L98.9 [place] [address] [facility] [id number] [address] [place] [address] Feb, [place] [address] [place] [id number] [address] [place] [address] Jan, Type 2 diabetes mellitus wit h hyperglycemia E11.65 ; 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.4 ; Essential (primary) hypertension I10 ; Pulmonary emphysema, unspecified emphysema type J43.9 ; Chronic pain G89.29 ; Controlled substance agreement signed Z79.899 ; Hypothyroid E03.9 ; Neuropathy G62.9 ; Gastroesophageal reflux disease with esophagitis K21.0 ; Overactive bladder N32.81 ; Depression F32.9 and Irritable bowel syndrome with diarrhea K58.0 [place] [address] [facility] [id number] [address] [place] [address] Jan, [place] [address] [facility] [id number] [address] [place] [address] Jan, Controlled substance agreeme nt signed Z79.899 [place] [address] [facility] [id number] [address] [place] [address] Dec, Type 2 diabetes mellitus wit h hyperglycemia E11.65 ; Controlled substance agreement signed Z79.899 ; 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.4 ; Essential (primary) hypertension I10 ; Hypothyroid E03.9 ; Neuropathy G62.9 ; Depression F32.9 ; Mixed hyperlipidemia E78.2 ; Irritable bowel syndrome with diarrhea K58.0 ; Gastroesophageal reflux disease with esophagitis K21.0 ; Thrombocytosis D47.3 ; Current non-adherence to medical treatment Z91.19 and Overweight (BMI 25.0-29.9) E66.3 [place] [id number] [facility] [id number] [address] [place] [address] 02 Dec, 2017 Controlled substance agreeme nt signed Z79.899 [place] [address] [facility] [id number] [address] [place] [address] Nov, Type 2 diabetes mellitus wit h hyperglycemia E11.65 and Current non- adherence to medical treatment Z91.19 [place] [address] [facility] [id number] [address] [place] [address] Nov, [place] [address] [place] [id number] [address] [place] [address] Nov, Chronic pain G89.29 [place] [address] [facility] [id number] [address] [place] [address] Nov, [place] [address] [place] [id number] [address] [place] [address] Nov, Hypothyroid E03.9 [place] [address] [facility] [id number] [address] [place] [address] Nov, Hypothyroid E03.9 [place] [address] [facility] [id number] [address] [place] [address] Nov, Pulmonary emphysema, unspeci fied emphysema type J43.9 and Irritable bowel syndrome with diarrhea K58.0 [place] [address] [facility] [id number] [address] [place] [address] Oct, [place] [address] [facility] [id number] [address] [place] [address] Oct, [place] [address] [place] [id number] [address] [place] [address] Oct, [place] [address] [facility] [id number] [address] [place] [address] Oct, [place] [address] [facility] [id number] [address] [place] [address] Oct, Chronic pain G89.29 [place] [address] [place] [id number] [address] [place] [address] Oct, Diabetes mellitus E11.9 ; De pression F32.9 ; Mixed hyperlipidemia E78.2 ; Hypotension, unspecified hypotension type I95.9 ; Pulmonary emphysema, unspecified emphysema type J43.9 and Weight loss, unintentional R63.4 [place] [address] [facility] [id number] [address] [place] [address] Oct, Chronic pain G89.29 [place] [address] [place] [id number] [address] [place] [address] Sep, Chronic pain G89.29 [place] [id number] [place] [address] Sep, Hypothyroid E03.9 and Diabet es mellitus E11.9 [place] [id number] [address] [place] [address] Aug, Type 2 diabetes mellitus wit h hyperglycemia E11.65 ; 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.4 ; Essential (primary) hypertension I10 ; Hypothyroid E03.9 ; Neuropathy G62.9 ; Chronic pain G89.29 ; Mixed hy perlipidemia E78.2 and Encounter for immunization Z23 [place] [address] [facility] [id number] [address] [place] [address] Aug, Chronic pain G89.29 [place] [address] [place] [id number] [address] [place] [address] Aug, Overactive bladder N32.81 ; Diabetes mellitus E11.9 and Chronic pain G89.29 [place] [address] [place] [id number] [address] [place] [address] Jul, [facility] [address] [facility] [id number] [address] [place] [address] Jun, [facility] [address] [facility] [id number] [address] [place] [address] Jun, [facility] [address] [facility] [id number] [address] [place] [address] Jun, Hypothyroid E03.9 [facility] [address] [facility] [id number] [address] [place] [address] Jun, Diabetes mellitus E11.9 ; Hy pothyroid E03.9 ; Neuropathy G62.9 ; Chronic pain G89.29 and Neck mass R22.1 [facility] [address] [facility] [id number] [address] [place] [address] Apr, [facility] [address] [facility] [id number] [address] [place] [address] Apr, Acute cystitis without hemat uria N30.00 [facility] [address] [facility] [id number] [address] [place] [address] March, [facility] [address] [facility] [id number] [address] [place] [address] March, [facility] [address] [place] [id number] [address] [place] [address] March, Near syncope R55 [facility] [address] [facility] [id number] [address] [place] [address] Feb, [facility] [address] [facility] [id number] [address] [place] [address] Feb, Chronic pain G89.29 [facility] [address] [facility] [id number] [address] [place] [address] Feb, [facility] [address] [facility] [id number] [address] [place] [address] Feb, [facility] [address] [facility] [id number] [address] [place] [address] Jan, Chronic pain G89.29 [facility] [address] [facility] [id number] [address] [place] [address] Jan, [facility] [address] [place] [id number] [address] [place] [address] 16 Jan, 2017 [facility] [address] [address] 14 Jan, 2017 Diabetes mellitus E11.9 ; Hy pothyroid E03.9 ; GERD (gastroesophageal reflux disease) K21.9 ; Insomnia G47.00 ; Functional 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 ; Neuropathy G62.9 ; Depression F32.9 ; Chronic pain G89.29 ; Irritable bowel syndrome with diarrhea K58.0 ; Overactive bladder N32.81 ; Mixed hyperlipidemia E78.2 and Bronchitis J40 [facility] [address] [place] [id number] [address] [place] [address] Dec, [facility] [address] [place] [id number] [address] [place] [address] Dec, [facility] [address] [place] [id number] [address] [place] [address] Dec, [facility] [address] [place] [id number] [address] [place] [address] Dec, [facility] [address] [place] [id number] [address] [place] [address] Dec, Chronic pain G89.29 [facility] [address] [facility] [id number] [address] [place] [address] Dec, [facility] [address] [address] Dec, [facility] [address] [place] [id number] [address] [place] [address] 17 Dec, 2016 Type 2 diabetes mellitus wit h foot ulcer E11.621 [facility] [address] [place] [id number] [address] [place] [address] 17 Dec, 2016 Type 2 diabetes mellitus wit h foot ulcer E11.621 [place] [address] [address] 14 Dec, 2016 HTN (hypertension) I10 ; Dep ression F32.9 ; Type 2 diabetes mellitus with foot ulcer E11.621 ; Functional 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 ; Irritable bowel syndrome with diarrhea K58.0 ; Chronic pain G89.29 ; Insomnia G47.00 ; Overactive bladder N32.81 ; Mixed hyperlipidemia E78.2 ; Gastroesophageal reflux disease with esophagitis K21.0 and Acquired hypothyroidism E03.9 [place] [address] [address] Nov, [place] [address] [address] Oct, [place] [address] [address] Oct, [place] [address] [address] Oct, [place] [address] [address] Sep, Functional 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 ; HTN (hypertension) I10 ; Diabetes mellitus E11.9 ; Depression F32.9 ; Overactive bladder N32.81 ; Mixed hyperlipidemia E78.2 ; Gastroesophageal reflux disease without esophagitis K21.9 ; Chronic pain G89.29 ; Insomnia G47.00 and Acquired hypothyroidism E03.9 [place] [address] [address] Sep, [place] [address] [address] Aug, Encounter for immunization Z 23 [place] [address] [address] 06 Aug, 2016 [place] [address] [address] Jul, [place] [address] [address] Jun, Type 2 diabetes mellitus wit hout complications E11.9 ; HTN (hypertension) I10 ; Hypothyroid E03.9 ; Neuropathy G62.9 ; Depression F32.9 ; Chronic pain G89.29 ; GERD (gastroesophageal reflux disease) K21.9 ; Insomnia G47.00 ; Overactive bladder N32.81 ; Mixed hyperlipidemia E78.2 ; Diarrhea of infectious origin A09 and Environmental allergies Z91.09 [place] [address] [address] Apr, [place] [address] [address] March, Hypothyroidism, unspecified E03.9 and Mixed hyperlipidemia E78.2 [place] [address] [address] March, Diabetes mellitus E11.9 ; HT N (hypertension) I10 ; Hypothyroid E03.9 ; Depression F32.9 ; Overactive bladder N32.81 ; Other chronic pain G89.29 ; Lumbago with sciatica, unspecified side M54.40 ; Environmental allergies Z91.09 and Gastroesophageal reflux disease, esophagitis presence not specified K21.9 [place] [address] [address] March, [place] [address] [address] Jan, HTN (hypertension) I10 ; Hyp othyroid E03.9 ; Neuropathy G62.9 ; Diabetes mellitus E11.9 ; Chronic pain G89.29 ; GERD (gastroesophageal reflux disease) K21.9 ; Overactive bladder N32.81 and Depression F32.9 [place] [address] [address] Dec, Ear pain, left H92.02 ; HTN (hypertension) I10 ; Hypothyroid E03.9 ; Neuropathy G62.9 ; Diabetes mellitus E11.9 ; Depression F32.9 ; GERD (gastroesophageal reflux disease) K21.9 ; Insomnia G47.00 and Overactive bladder N32.81 [facility] [address] [facility] [id number] [address] [place] [id number] Nov, Overactive bladder N32.81 an d Chronic pain G89.29 [place] [id number] [place] [id number] Nov, Kidney failure N19 [place] [address] [place] [id number] [place] [id number] Nov, [place] [address] [place] [id number] [place] [id number] Nov, [place] [address] [place] [id number] [place] [address] Nov, Diabetes mellitus E11.9 ; De pression F32.9 ; Chronic pain G89.29 ; GERD (gastroesophageal reflux disease) K21.9 ; Insomnia G47.00 ; HTN (hypertension) I10 ; Hypothyroid E03.9 ; COPD (chronic obstructive pulmonary disease) J44.9 ; Bladder incontinence R32 and Incontinence R32 [place] [id number] [place] [id number] [place] [id number] Sep, Type 2 diabetes mellitus wit h foot ulcer E11.621 and Chromosomal abnormality, 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 [place] [address] [facility] [id number] [address] [place] [id number] Sep, [place] [address] [place] [id number] [place] [id number] Aug, [place] [address] [place] [id number] [place] [phone] Aug, [place] [address] [place] [id number] [place] [id number] Aug, HTN (hypertension) I10 ; Enc ounter for immunization Z23 ; Hypothyroid E03.9 ; Neuropathy G62.9 ; Diabetes mellitus E11.9 ; Depression F32.9 ; Chronic pain G89.29 ; GERD (gastroesophageal reflux disease) K21.9 ; Insomnia G47.00 and COPD (chronic obstructive pulmonary disease) J44.9 [place] [address] [id number] Jun, [place] [address] [address] Jun, [place] [address] [id number] May, Essential hypertension, ivis gn 401.1 ; Unspecified hypothyroidism 244.9 ; Insomnia, unspecified 780.52 ; Shortness of breath 786.05 ; Depression 311 ; COPD (chronic obstructive pulmonary disease) 496 ; GERD (gastroesophageal reflux disease) 530.81 and Diabetes 1.5, 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 [address] May, [place] [address] [address] May, [address] [address] May, Shortness of breath 786.05 ; Essential hypertension, benign 401.1 ; Diabetes mellitus 250.00 ; Hyperlipidemia 272.4 ; Hypothyroid 244.9 ; Insomnia 780.52 and Cough 786.[address] [address] Apr, [address] [address] March, Shortness of breath 786.05 ; Nausea with vomiting 787.01 ; Essential hypertension, benign 401.1 ; Diabetes mellitus 250.00 ; Hyperlipidemia 272.4 and Hypothyroid 244.[address] [address] Feb, [facility] [address] [id number] [address] [place] [address], [place] [address] Feb, [facility] [address] [id number] [address] [place] [address], [place] [address] Jan, [facility] [address] [id number] [address] [place] [address], [place] [address] Jan, [facility] [address] [id number] [address] [place] [address], [place] [address] Jan, [facility] [address] [id number] [address] [place] [address], [place] [address] Jan, [facility] [address] [id number] [address] [place] [address], [place] [address] Jan, [facility] [address] [id number] [address] [place] [address], [place] [address] Jan, [facility] [address] [id number] [address] [place] [address], [place] [address] Jan, [facility] [address] [id number] [address] [place] [address], [place] [address] Jan, [facility] [address] [id number] [address] [place] [address], [place] [address] Jan, [facility] [address] [id number] [address] [place] [address], [place] [address] Jan, [facility] [address] [id number] [address] [place] [address], [place] [address] Dec, [facility] [address] [id number] [address] [place] [address], [place] [address] Dec, [facility] [address] [id number] [address] [place] [address], [place] [address] Dec, [facility] [address] [id number] [address] [place] [address], [place] [address] Dec, [facility] [address] [id number] [address] [place] [address], [place] [address] Dec, 2014 [facility] [address] [id number] [address] [place] [address], [place] [address] Dec, 2014 [facility] [address] [id number] [address] [place] [address], [place] [address] Dec, 2014 [facility] [address] [id number] [address] [place] [address], [place] [address] Dec, 2014 [facility] [address] [id number] [address] [place] [address], [place] [address] Dec, 2014 [facility] [address] [id number] [address] [place] [address], [place] [address] Dec, 2014 [facility] [address] [id number] [address] [place] [address], [place] [address] Oct, [facility] [address] [id number] [address] [place] [address], [place] [address] Oct, [facility] [address] [id number] [address] [place] [address], [place] [address] Oct, [facility] [address] [id number] [address] [place] [address], [place] [address] Oct, [facility] [address] [id number] [address] [place] [address], [place] [address] Oct, [facility] [address] [id number] [address] [place] [address], [place] [address] Oct, [facility] [address] [id number] [address] [place] [address], [place] [address] Oct, [facility] [address] [id number] [address] [place] [address], [place] [address] Oct, [facility] [address] [id number] [address] [place] [address], [place] [address] Oct, [facility] [address] [id number] [address] [place] [address], [place] [address] Oct, [facility] [address] [id number] [address] [place] [address], [place] [address] Oct, [facility] [address] [id number] [address] [place] [address], [place] [address] Oct, [facility] [address] [id number] [address] [place] [address], [place] [address] Oct, [facility] [address] [id number] [address] [place] [address], [place] [address] Oct, [facility] [address] [id number] [address] [place] [address], [place] [address] Sep, [facility] [address] [id number] [address] [place] [address], [place] [address] Sep, [facility] [address] [id number] [address] [place] [address], [place] [address] Sep, [facility] [address] [id number] [address] [place] [address], [place] [address] Sep, [facility] [address] [id number] [address] [place] [address], [place] [address] Sep, [facility] [address] [id number] [address] [place] [address], [place] [address] Sep, [facility] [address] [id number] [address] [place] [address], [place] [address] Sep, [facility] [address] [id number] [address] [place] [address], [place] [address] Sep, [facility] [address] [id number] [address] [place] [address], [place] [address] Sep, [facility] [address] [id number] [address] [place] [address], [place] [address] Aug, [facility] [address] [id number] [address] [place] [address], [place] [address] Aug, [facility] [address] [id number] [address] [place] [address], [place] [address] 17 Aug, 2014 [facility] [address] [id number] [address] [place] [address], [place] [address] 17 Aug, 2014 [facility] [address] [id number] [address] [place] [address], [place] [address] 16 Aug, 2014 [facility] [address] [id number] [address] [place] [address], [place] [address] Aug, [facility] [address] [id number] [address] [place] [address], [place] [address] Aug, [facility] [address] [id number] [address] [place] [address], [place] [address] Aug, [facility] [address] [id number] [address] [place] [address], [place] [address] Aug, [facility] [address] [id number] [address] [place] [address], [place] [address] 29 Jul, 2013 [facility] [address] [id number] [address] [place] [address], [place] [address] 29 Jul, 2013 [facility] [address] [id number] [address] [place] [address], [place] [address] 25 Jul, 2013 [facility] [address] [id number] [address] [place] [address], [place] [address] 25 Jul, 2013 [facility] [address] [id number] [address] [place] [address], [place] [address] 25 Jul, 2013 [facility] [address] [id number] [address] [place] [address], [place] [address] 25 Jul, 2013 [facility] [address] [id number] [address] [place] [address], [place] [address] 25 Jul, 2013 [facility] [address] [id number] [address] [place] [address], [place] [address] 25 Jul, 2013 [facility] [address] [id number] [address] [place] [address], [place] [address] 02 Jul, 2013 [facility] [address] [id number] [facility] [place] [address] Jul, [facility] [address] [id number] [facility] [place] [address] Jun, [facility] [address] [id number] [facility] [place] [address] Jun, [facility] [address] [id number] [address] [place] [address], [place] [address] Jun, [facility] [address] [id number] [address] [place] [address], [place] [address] Jun, [facility] [address] [id number] [address] [place] [address], [place] [address] Jun, [facility] [address] [id number] [address] [place] [address], [place] [address] Jun, [facility] [address] [id number] [address] [place] [address], [place] [address] Jun, [facility] [address] [id number] [address] [place] [address], [place] [address] Jun, [facility] [address] [id number] [address] [place] [address], [place] [address] Jun, [facility] [address] [id number] [address] [place] [address], [place] [address] Jun, [facility] [address] [id number] [address] [place] [address], [place] [address] Jun, [facility] [address] [id number] [address] [place] [address], [place] [address] Jun, [facility] [address] [id number] [address] [place] [address], [place] [address] May, [facility] [address] [id number] [address] [place] [address], [place] [address] May, [facility] [address] [id number] [address] [place] [address], [place] [address] May, [facility] [address] [id number] [address] [place] [address], [place] [address] May, [facility] [address] [id number] [address] [place] [address], [place] [address] May, [facility] [address] [id number] [address] [place] [address], [place] [address] May, [facility] [address] [id number] [address] [place] [address], [place] [address] March, [facility] [address] [id number] [address] [place] [address], [place] [address] March, [facility] [address] [id number] [address] [place] [address], [place] [address] March, [facility] [address] [id number] [address] [place] [address], [place] [address] March, [facility] [address] [id number] [address] [place] [address], [place] [address] March, [facility] [address] [id number] [address] [place] [address], [place] [address] March, [facility] [address] [id number] [address] [place] [address], [place] [address] Feb, [facility] [address] [id number] [address] [place] [address], [place] [address] Feb, [facility] [address] [id number] [address] [place] [address], [place] [address] Feb, [facility] [address] [id number] [address] [place] [address], [place] [address] Feb, [facility] [address] [id number] [address] [place] [address], [place] [address] Jan, [facility] [address] [id number] [address] [place] [address], [place] [address] Jan, [facility] [address] [id number] [address] [place] [address], [place] [address] Jan, [facility] [address] [id number] [address] [place] [address], [place] [address] Jan, [facility] [address] [id number] [address] [place] [address], [place] [address] Jan, [facility] [address] [id number] [address] [place] [address], [place] [address] Jan, [facility] [address] [id number] [address] [place] [address], [place] [address] Jan, [facility] [address] [id number] [address] [place] [address], [place] [address] Jan, [facility] [address] [id number] [address] [place] [address], [place] [address] Jan, [facility] [address] [id number] [address] [place] [address], [place] [address] Jan, [facility] [address] [id number] [address] [place] [address], [place] [address] Jan, [facility] [address] [id number] [address] [place] [address], [place] [address] Jan, [facility] [address] [id number] [address] [place] [address], [place] [address] Dec, [facility] [address] [id number] [address] [place] [address], [place] [address] Dec, [facility] [address] [id number] [address] [place] [address], [place] [address] Dec, [facility] [address] [id number] [address] [place] [address], [place] [address] Dec, [facility] [address] [id number] [address] [place] [address], [place] [address] Dec, [facility] [address] [id number] [address] [place] [address], [place] [address] Dec, [facility] [address] [id number] [address] [place] [address], [place] [address] Nov, [facility] [address] [id number] [address] [place] [address], [place] [address] Nov, [facility] [address] [id number] [address] [place] [address], [place] [address] Oct, [facility] [address] [id number] [address] [place] [address], [place] [address] Oct, [facility] [address] [id number] [address] [place] [address], [place] [address] Oct, [facility] [address] [id number] [address] [place] [address], [place] [address] Oct, [facility] [address] [id number] [address] [place] [address], [place] [address] Oct, [facility] [address] [id number] [address] [place] [address], [place] [address] Oct, [facility] [address] [id number] [address] [place] [address], [place] [address] Sep, [facility] [address] [id number] [address] [place] [address], [place] [address] Sep, [facility] [address] [id number] [address] [place] [address], [place] [address] Sep, [facility] [address] [id number] [address] [place] [address] Sep, [facility] [address] [id number] [address] [place] [address], [place] [address] Aug, [facility] [address] [id number] [address] [place] [address], [place] [address] Aug, [facility] [address] [id number] [address] [place] [address], [place] [address] Aug, [facility] [address] [id number] [address] [place] [address] 17 Jul, 2013 [facility] [address] [id number] [address] [place] [address], [place] [address] 14 Jul, 2013 [facility] [address] [id number] [address] [place] [address], [place] [address] 04 Jul, 2013 [facility] [address] [id number] [address] [place] [address], [place] [address] Jun, [facility] [address] [id number] [address] [place] [address], [place] [address] Jun, [facility] [address] [id number] [address] [place] [address], [place] [address] Jun, [facility] [address] [id number] [address] [place] [address], [place] [address] Apr, [facility] [address] [id number] [address] [place] [address], [place] [address] Apr, [facility] [address] [id number] [address] [place] [address], [place] [address] March, [facility] [address] [id number] [address] [place] [address], [place] [address] March, [facility] [address] [id number] [address] [place] [address], [place] [address] March, [facility] [address] [id number] [address] [place] [address], [place] [address] March, [facility] [address] [id number] [address] [place] [address], [place] [address] Feb, [facility] [address] [id number] [address] [place] [address], [place] [address] Jan, [facility] [address] [id number] [address] [place] [address], [place] [address] Dec, [facility] [address] [id number] [address] [place] [address], [place] [address] Dec, [facility] [address] [id number] [address] [place] [address], [place] [address] 07 Dec, 2012 [facility] [address] [id number] [address] [place] [address], [place] [address] Nov, [facility] [address] [id number] [address] [place] [address], [place] [address] Oct, [facility] [address] [id number] [address] [place] [address], [place] [address] Oct, [facility] [address] [id number] [address] [place] [address], [place] [address] Sep, [facility] [address] [id number] [address] [place] [address], [place] [address] Sep, [facility] [address] [id number] [address] [place] [address], [place] [address] Sep, [facility] [address] [id number] [address] [place] [address], [place] [address] Sep, [facility] [address] [id number] [address] [place] [address], [place] [address] Sep, [facility] [address] [id number] [address] [place] [address], [place] [address] Sep, [facility] [address] [id number] [address] [place] [address], [place] [address] Sep, [facility] [address] [id number] [address] [place] [address], [place] [address] Aug, [facility] [address] [id number] [address] [place] [address], [place] [address] 16 Aug, 2012 [facility] [address] [id number] [address] [place] [address], [place] [address] Aug, [facility] [address] [id number] [address] [place] [address], [place] [address] Aug, [facility] [address] [id number] [address] [place] [address], [place] [address] Aug, [facility] [address] [id number] [address] [place] [address], [place] [address] Aug, [facility] [address] [id number] [address] [place] [address], [place] [address] Aug, [facility] [address] [id number] [address] [place] [address], [place] [address] Aug, [facility] [address] [id number] [address] [place] [address], [place] [address] Jul, [facility] [address] [id number] [address] [place] [address], [place] [address] Jul, [facility] [address] [id number] [address] [place] [address], [place] [address] Jun, [facility] [address] [id number] [address] [place] [address], [place] [address] May, [facility] [address] [id number] [address] [place] [address], [place] [address] Apr, [facility] [address] [id number] [address] [place] [address], [place] [address] Apr, [facility] [address] [id number] [address] [place] [address], [place] [address] Apr, [facility] [address] [id number] [address] [place] [address], [place] [address] March, [facility] [address] [id number] [address] [place] [address], [place] [address] March, [facility] [address] [id number] [address] [place] [address], [place] [address] March, [facility] [address] [id number] [address] [place] [address], [place] [address] March, [facility] [address] [id number] [address] [place] [address], [place] [address] March, [facility] [address] [id number] [address] [place] [address], [place] [address] March, [facility] [address] [id number] [address] [place] [address], [place] [address] March, [facility] [address] [id number] [address] [place] [address], [place] [address] Jan, [facility] [address] [id number] [address] [place] [address], [place] [address] Jan, [facility] [address] [id number] [address] [place] [address], [place] [address] Jan, [facility] [address] [id number] [address] [place] [address], [place] [address] Jan, [facility] [address] [id number] [address] [place] [address], [place] [address] Jan, [facility] [address] [id number] [address] [place] [address], [place] [address] Dec, [facility] [address] [id number] [address] [place] [address], [place] [address] Dec, [facility] [address] [id number] [address] [place] [address], [place] [address] Nov, [facility] [address] [id number] [address] [place] [address], [place] [address] Nov, [facility] [address] [id number] [address] [place] [address], [place] [address] Nov, [facility] [address] [id number] [address] [place] [address], [place] [address] Nov, [facility] [address] [id number] [address] [place] [address], [place] [address] Oct, [facility] [address] [id number] [address] [place] [address], [place] [address] Oct, [facility] [address] [id number] [address] [place] [address], [place] [address] 14 Sep, 2011 [facility] [address] [id number] [address] [place] [address], [place] [address] 10 Sep, 2011 [facility] [address] [id number] [address] [place] [address], [place] [address] 10 Sep, 2011 [facility] [address] [id number] [address] [place] [address], [place] [address] 11 May, 2011 [facility] [address] [id number] [address] [place] [address], [place] [address] 20 Nov, 2010 [facility] [address] [id number] [address] [place] [address], [place] [address] 29 Oct, 2010 [facility] [address] [id number] [address] [place] [address], [place] [address] 14 Oct, 2010 [facility] [address] [id number] [address] [place] [address], [place] [address] 08 Oct, 2010 [facility] [address] [id number] [address] [place] [address], [place] [address] 15 Sep, 2010 [facility] [address] [id number] [address] [place] [address], [place] [address] Sep, [facility] [address] [id number] [address] [place] [address], [place] [id number] Aug, [facility] [address] [id number] [address] [place] [address], [place] [address] March, [facility] [address] [id number] [address] [place] [address], [place] [address] Oct, [facility] [address] [id number] [address] [place] [address], [place] [address] Oct, [facility] [address] [id number] [address] [place] [address], [place] [address] Oct, [facility] [address] [id number] [address] [place] [address], [place] [address] Oct, [facility] [address] [id number] [address] [place] [id number] Sep, [facility] [address] [facility] [id number] [address] [place] [id number] Sep, [facility] [address] [facility] [id number] [address] [place] [phone] Sep, [facility] [address] [facility] [id number] [address] [place] [id number] Aug, [facility] [address] [facility] [id number] [address] [place] [id number] Aug, [facility] [address] [facility] [id number] [address] [place] [id number] Aug, [facility] [address] [facility] [id number] [address] [place] [id number] Jan, IMMUNIZATIONS No Known Immunizations SOCIAL HISTORY [...]
--- OUTSIDE RECORDS SUMMARY | 2020-06-13 16:09 | XMS REPORT ---
Author Author Jah HASSAN Organization [facility], [place] Address [address] [place] [address] Care Team Providers Care Modeling Instructor Name Role Phone REINALDO HASSAN Unavailable PROBLEMS Type Condition ICD9-CM Code OGN09-JH Code Onset Dates Condition S tatus SNOMED Code Problem Hypothyroid E03.9 Active 72046387 Problem Neuropathy G62.9 Active 729013920 Problem Mixed hyperlipidemia E78.2 Active 794501550 Problem Overactive bladder N32.81 Active 2 73924509 Problem Irritable bowel syndrome with diarrhea K58.0 Active 024537127 Problem Gastroesophageal reflux disease with esophagitis K 21.0 Active 170670737 Problem Type 2 diabetes mellitus with hyperglycemia E11.65 Active 84063105 Problem 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.4 Active 243492834 Problem Current non-adherence to medical treatment Z91.19 Active 1654833 Problem Recurrent major depressive disorder, in partial remission F33.41 Active 44166093 Problem Chronic fatigue R53.82 Active 8422 9001 Problem 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 Active 606813493 Problem Pulmonary emphysema, unspecified emphysema type J4 3.9 Active 84527829 Problem Thrombocytosis D47.3 Active 80638 09 Problem Acquired hypothyroidism E03.9 Active 936008687 Problem Essential (primary) hypertension I10 Active 25406473 Problem Chronic pain G89.29 Active 2252274 1 Problem Anxiety disorder, unspecified type F41.9 Active 297250380 Problem Major depressive disorder, recurrent episode, moderate F33.1 Active 656794367 Problem Hypertriglyceridemia E78.1 Active 801345035 Problem Gastroparesis K31.84 Active 045226 006 ALLERGIES No Information ENCOUNTERS Encounter Location Date Diagnosis [facility], [place] [address] [facility] [id number] [address] [place] [address] May, [facility], [place] [address] [facility] [id number] [address] [place] [address] May, Chronic pain G89.29 [facility] [place] [address] [facility] [id number] [address] [place] [address] Apr, Poison maryam dermatitis L23.7 [facility] [place] [address] [facility] [id number] [address] [place] [address] Apr, Chronic pain G89.29 [facility] [place] [address] [facility] [id number] [address] [place] [address] March, Type 2 diabetes mellitus wit h hyperglycemia E11.65 [facility] [place] [address] [facility] [id number] [address] [place] [address] March, Chronic pain G89.29 [facility], [place] [address] [facility] [id number] [address] [place] [address] March, [address] [address] Feb, [facility], [place] [address] [facility] [id number] [address] [place] [address] Feb, Other chronic pain G89.29 an d Chronic pain G89.29 [facility] [place] [address] [facility] [id number] [address] [place] [address] Jan, Mixed hyperlipidemia E78.2 [place] [address] [place] [id number] [address] [place] [address] Jan, Chronic pain G89.29 [facility] [place] [address] [facility] [id number] [address] [place] [address] Jan, Type 2 diabetes mellitus wit h hyperglycemia E11.65 ; Mixed hyperlipidemia E78.2 ; [facility] current use of insulin Z79.4 ; Acquired hypothyroidism E03.9 and Essential (primary) hypertension I10 [facility] [place] [address] [facility] [id number] [address] [place] [address] Dec, Chronic pain G89.29 [facility] [place] [address] [place] [id number] [address] [place] [address] Nov, Chronic pain G89.29 [facility] [place] [address] [facility] [id number] [address] [place] [address] Nov, [facility] [place] [address] [facility] [id number] [address] [place] [address] Oct, Chronic pain G89.29 [facility] [place] [address] [facility] [id number] [address] [place] [address] Oct, [facility] [place] [address] [facility] [id number] [address] [place] [address] Sep, [facility] [place] [address] [facility] [id number] [address] [place] [address] Sep, Type 2 diabetes mellitus wit h hyperglycemia E11.65 [place] [address] [place] [id number] [address] [place] [address] Sep, Chronic pain G89.29 [facility] [place] [address] [facility] [id number] [address] [place] [address] Sep, [facility] [place] [address] [facility] [id number] [address] [place] [address] Sep, Type 2 diabetes mellitus wit h hyperglycemia E11.65 ; Irritable bowel syndrome with diarrhea K58.0 ; Gastroparesis K31.84 ; 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 and Dermatitis L30.9 [facility], [place] [address] [place] [id number] [address] [place] [address] Aug, Chronic pain G89.29 [facility] [place] [address] [facility] [id number] [address] [place] [address] Jul, Chronic pain G89.29 [facility] [place] [address] [place] [id number] [address] [place] [address] Jun, Type 2 diabetes mellitus wit h hyperglycemia E11.65 ; Neuropathy G62.9 ; Recurrent major depressive disorder, in partial remission F33.41 ; Chronic pain G89.29 and Hypertriglyceridemia E78.1 [facility] [place] [address] [place] [id number] [address] [place] [phone] Jun, Hypothyroid E03.9 [place] [address] [facility] [id number] [address] [place] [address] Jun, Major depressive disorder, r ecurrent episode, moderate F33.1 and Anxiety disorder, unspecified type F41.9 [place] [address] [place] [id number] [address] [place] [address] Jun, [place] [address] [place] [id number] [place] [address] Jun, Type 2 diabetes mellitus wit h hyperglycemia E11.65 ; [facility]CI current use of insulin Z79.4 ; Recurrent major depressive disorder, in partial remission F33.41 ; Hypothyroid E03.9 ; Candidal dermatitis B37.2 and Weakness generalized R53.1 [place] [address] [place] [id number] [address] [place] [address] May, [place] [address] [place] [id number] [address] [place] [address] May, [place] [address] [place] [id number] [address] [place] [address] May, [place] [address] [place] [id number] [address] [place] [address] May, Generalized abdominal pain R 10.84 and Candidal dermatitis B37.2 [place] [address] [facility] [id number] [address] [place] [address] May, [place] [address] [place] [id number] [address] [place] [address] May, [place] [address] [place] [id number] [address] [place] [address] May, Nodular radiologic density R 93.8 ; Weight loss, unintentional R63.4 and Pulmonary emphysema, unspecified emphysema type J43.9 [place] [address] [place] [id number] [address] [place] [address] May, Chronic pain G89.29 [facility] [place] [address] [id number] [address] [place] [address] 09 May, 2018 Syncope and collapse R55 ; C hronic fatigue R53.[address] lung screening R91.8 [facility] [place] [address] [id number] [address] [place] [address] May, [facility] [place] [address] [id number] [address] [place] [address] Apr, Chronic fatigue R53.82 ; Abn ormal chest CT R93.8 ; Elevated erythrocyte sedimentation rate R70.0 ; Hypothyroid E03.9 and Recurrent major depressive disorder, in partial remission F33.41 [facility] [place] [address] [facility] [id number] [address] [place] [address] Apr, Hypothyroid E03.9 [facility] [place] [address] [facility] [id number] [address] [place] [id number] Apr, Depression F32.9 [facility] [place] [address] [facility] [id number] [address] [place] [address] Apr, [facility] [place] [address] [facility] [id number] [address] [place] [id number] March, [facility] [place] [address] [facility] [id number] [address] [place] [address] March, Hypothyroid E03.9 [facility] [place] [address] [facility] [id number] [address] [place] [address] March, Diabetes mellitus E11.9 and Hypothyroid E03.9 [facility] [place] [address] [id number] [address] [place] [address] March, Diabetes mellitus E11.9 [facility] [place] [address] [facility] [id number] [address] [place] [address] March, Hypothyroid E03.9 and Elevat ed liver enzymes R74.8 [facility] [place] [address] [facility] [id number] [address] [place] [address] March, Type 2 diabetes mellitus wit h [...] major depressive disorder, in partial remission F33.41 [place] [address] [facility] [id number] [address] [place] [address] Feb, Chronic pain G89.29 [place] [address] [facility] [id number] [address] [place] [address] Feb, Type 2 diabetes mellitus wit h hyperglycemia E11.65 and Skin lesion of scalp L98.9 [place] [address] [facility] [id number] [address] [place] [address] Feb, [place] [address] [facility] [id number] [address] [place] [address] Jan, Type 2 diabetes mellitus wit h [...] and Irritable bowel syndrome with diarrhea K58.0 [place] [address] [facility] [id number] [address] [place] [address] Jan, [place] [address] [facility] [id number] [address] [place] [address] Jan, Controlled substance agreeme nt signed Z79.899 [place] [address] [facility] [id number] [address] [place] [address] Dec, Type 2 diabetes mellitus wit h [...] treatment Z91.19 and Overweight (BMI 25.0-29.9) E66.3 [place] [address] [id number] [address] [place] [id number] 02 Dec, 2017 Controlled substance agreeme nt signed Z79.899 [place] [address] [facility] [id number] [address] [place] [address] Nov, Type 2 diabetes mellitus wit h hyperglycemia E11.65 and Current non- adherence to medical treatment Z91.19 [place] [address] [id number] [address] [place] [id number] Nov, [place] [address] [id number] [address] [place] [address] Nov, Chronic pain G89.29 [place] [address] [facility] [id number] [address] [place] [address] Nov, [place] [address] [id number] [address] [place] [address] Nov, Hypothyroid E03.9 [place] [address] [id number] [address] [place] [address] Nov, Hypothyroid E03.9 [place] [address] [id number] [address] [place] [address] Nov, Pulmonary emphysema, unspeci fied emphysema type J43.9 and Irritable bowel syndrome with diarrhea K58.0 [place] [address] [id number] [address] [place] [id number] Oct, [place] [address] [facility] [id number] [address] [place] [address] Oct, [place] [address] [address] Oct, [place] [address] [address] Oct, [place] [address] [address] Oct, Chronic pain G89.29 [place] [address] [address] Oct, Diabetes mellitus E11.9 ; De pression F32.9 ; Mixed hyperlipidemia E78.2 ; Hypotension, unspecified hypotension type I95.9 ; Pulmonary emphysema, unspecified emphysema type J43.9 and Weight loss, unintentional R63.4 [place] [address] [address] Oct, Chronic pain G89.29 [place] [address] [address] Sep, Chronic pain G89.29 [place] [address] [address] Sep, Hypothyroid E03.9 and Diabet es mellitus E11.9 [place] [address] [address] Aug, Type 2 diabetes mellitus wit h hyperglycemia E11.65 ; [facility]CI current use of insulin Z79.4 ; Essential (primary) hypertension I10 ; Hypothyroid E03.9 ; Neuropathy G62.9 ; Chronic pain G89.29 ; Mixed hy perlipidemia E78.2 and Encounter for immunization Z23 [place] [address] [address] Aug, Chronic pain G89.29 [place] [address] [address] Aug, Overactive bladder N32.81 ; Diabetes mellitus E11.9 and Chronic pain G89.29 [facility] [place] [address] [id number] [address] [place] [address] Jul, [facility] [place] [address] [facility] [id number] [address] [place] [address] Jun, [facility] [place] [address] [facility] [id number] [address] [place] [address] Jun, [facility] [place] [address] [facility] [id number] [address] [place] [address] Jun, Hypothyroid E03.9 [facility] [place] [address] [facility] [id number] [address] [place] [address] Jun, Diabetes mellitus E11.9 ; Hy pothyroid E03.9 ; Neuropathy G62.9 ; Chronic pain G89.29 and Neck mass R22.1 [facility] [place] [address] [facility] [id number] [address] [place] [id number] Apr, [facility] [place] [address] [facility] [id number] [address] [place] [address] Apr, Acute cystitis without hemat uria N30.00 [facility] [place] [address] [facility] [id number] [address] [place] [id number] March, [facility] [place] [address] [facility] [id number] [address] [place] [address] March, [facility] [place] [address] [facility] [id number] [address] [place] [address] March, Near syncope R55 [facility] [place] [address] [facility] [id number] [address] [place] [address] Feb, [facility] [place] [address] [facility] [id number] [address] [place] [address] Feb, Chronic pain G89.29 [facility] [place] [address] [facility] [id number] [address] [place] [address] Feb, [facility] [place] [address] [facility] [id number] [address] [place] [address] Feb, [facility] [place] [address] [address] Jan, Chronic pain G89.29 [facility] [place] [address] [address] Jan, [facility] [place] [address] [address] Jan, [facility] [place] [address] [address] 14 Jan, 2017 Diabetes mellitus E11.9 ; Hy pothyroid E03.9 ; GERD (gastroesophageal reflux disease) K21.9 ; Insomnia G47.00 ; Functional 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 ; Neuropathy G62.9 ; Depression F32.9 ; Chronic pain G89.29 ; Irritable bowel syndrome with diarrhea K58.0 ; Overactive bladder N32.81 ; Mixed hyperlipidemia E78.2 and Bronchitis J40 [facility] [place] [address] [address] Dec, [facility] [place] [address] [address] Dec, [facility] [place] [address] [address] Dec, [facility] [place] [address] [address] Dec, [facility] [place] [address] [address] Dec, Chronic pain G89.29 [facility] [place] [address] [address] Dec, [facility] [place] [address] [address] Dec, [facility] [place] [address] [address] Dec, Type 2 diabetes mellitus wit h foot ulcer E11.621 [facility] [place] [address] [place] [id number] [address] [place] [address] 17 Dec, 2016 Type 2 diabetes mellitus wit h foot ulcer E11.621 [facility] [place] [address] [place] [id number] [address] [place] [address] 14 Dec, 2016 HTN (hypertension) I10 ; Dep ression F32.9 ; Type 2 diabetes mellitus with foot ulcer E11.621 ; Functional 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 ; Irritable bowel syndrome with diarrhea K58.0 ; Chronic pain G89.29 ; Insomnia G47.00 ; Overactive bladder N32.81 ; Mixed hyperlipidemia E78.2 ; Gastroesophageal reflux disease with esophagitis K21.0 and Acquired hypothyroidism E03.9 [place] [address] [address] Nov, [place] [address] [address] Oct, [place] [address] [place] [id number] [address] [place] [address] Oct, [place] [address] [address] Oct, [place] [address] [address] Sep, Functional 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 ; HTN (hypertension) I10 ; Diabetes mellitus E11.9 ; Depression F32.9 ; Overactive bladder N32.81 ; Mixed hyperlipidemia E78.2 ; Gastroesophageal reflux disease without esophagitis K21.9 ; Chronic pain G89.29 ; Insomnia G47.00 and Acquired hypothyroidism E03.9 [place] [address] [address] 04 Sep, 2016 [place] [address] [address] 11 Aug, 2016 Encounter for immunization Z 23 [place] [address] [address] Aug, [place] [address] [address] Jul, [place] [address] [address] Jun, Type 2 diabetes mellitus wit hout complications E11.9 ; HTN (hypertension) I10 ; Hypothyroid E03.9 ; Neuropathy G62.9 ; Depression F32.9 ; Chronic pain G89.29 ; GERD (gastroesophageal reflux disease) K21.9 ; Insomnia G47.00 ; Overactive bladder N32.81 ; Mixed hyperlipidemia E78.2 ; Diarrhea of infectious origin A09 and Environmental allergies Z91.09 [place] [address] [address] Apr, [place] [address] [address] March, Hypothyroidism, unspecified E03.9 and Mixed hyperlipidemia E78.2 [place] [address] [address] March, Diabetes mellitus E11.9 ; HT N (hypertension) I10 ; Hypothyroid E03.9 ; Depression F32.9 ; Overactive bladder N32.81 ; Other chronic pain G89.29 ; Lumbago with sciatica, unspecified side M54.40 ; Environmental allergies Z91.09 and Gastroesophageal reflux disease, esophagitis presence not specified K21.9 [place] [address] [address] March, [place] [address] [address] Jan, HTN (hypertension) I10 ; Hyp othyroid E03.9 ; Neuropathy G62.9 ; Diabetes mellitus E11.9 ; Chronic pain G89.29 ; GERD (gastroesophageal reflux disease) K21.9 ; Overactive bladder N32.81 and Depression F32.9 [place] [address] [address] Dec, Ear pain, left H92.02 ; HTN (hypertension) I10 ; Hypothyroid E03.9 ; Neuropathy G62.9 ; Diabetes mellitus E11.9 ; Depression F32.9 ; GERD (gastroesophageal reflux disease) K21.9 ; Insomnia G47.00 and Overactive bladder N32.81 [place] [address] [facility] [id number] [address] [place] [address] Nov, Overactive bladder N32.81 an d Chronic pain G89.29 [place] [address] [facility] [id number] [address] [place] [address] Nov, Kidney failure N19 [place] [address] [place] [id number] [address] [place] [address] Nov, [place] [address] [place] [id number] [address] [place] [address] Nov, [place] [address] [place] [id number] [address] [place] [id number] Nov, Diabetes mellitus E11.9 ; De pression F32.9 ; Chronic pain G89.29 ; GERD (gastroesophageal reflux disease) K21.9 ; Insomnia G47.00 ; HTN (hypertension) I10 ; Hypothyroid E03.9 ; COPD (chronic obstructive pulmonary disease) J44.9 ; Bladder incontinence R32 and Incontinence R32 [place] [address] [address] [facility] [id number] [address] [place] [id number] Sep, Type 2 diabetes mellitus wit h foot ulcer E11.621 and Chromosomal abnormality, 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 [place] [address] [address] [facility] [id number] [address] [place] [phone] Sep, [place] [address] [address] [place] [id number] [address] [place] [phone] Aug, [place] [address] [address] [facility] [id number] [address] [place] [phone] 14 Aug, 2015 [place] [address] [address] [place] [id number] [address] [place] [id number] Aug, HTN (hypertension) I10 ; Enc ounter for immunization Z23 ; Hypothyroid E03.9 ; Neuropathy G62.9 ; Diabetes mellitus E11.9 ; Depression F32.9 ; Chronic pain G89.29 ; GERD (gastroesophageal reflux disease) K21.9 ; Insomnia G47.00 and COPD (chronic obstructive pulmonary disease) J44.[address] [id number] Jun, [place] [address] [id number] Jun, [address] [id number] May, Essential hypertension, ivis gn 401.1 ; Unspecified hypothyroidism 244.9 ; Insomnia, unspecified 780.52 ; Shortness of breath 786.05 ; Depression 311 ; COPD (chronic obstructive pulmonary disease) 496 ; GERD (gastroesophageal reflux disease) 530.81 and Diabetes 1.5, 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 [phone] May, [address] [phone] May, [address] [phone] May, Shortness of breath 786.05 ; Essential hypertension, benign 401.1 ; Diabetes mellitus 250.00 ; Hyperlipidemia 272.4 ; Hypothyroid 244.9 ; Insomnia 780.52 and Cough 786.[address] [phone] Apr, [address] [phone] March, Shortness of breath 786.05 ; Nausea with vomiting 787.01 ; Essential hypertension, benign 401.1 ; Diabetes mellitus 250.00 ; Hyperlipidemia 272.4 and Hypothyroid 244.9 [place] [id number] [address] [place] [address], [place] [phone] 14 Feb, 2015 [facility] [address] [id number] [address] [place] [address], [place] [phone] 13 Feb, 2015 [facility] [address] [id number] [address] [place] [address], [place] [phone] 24 Jan, 2015 [facility] [address] [id number] [address] [place] [address], [place] [id number] 24 Jan, 2015 [facility] [address] [id number] [address] [place] [address], [place] [phone] Jan, [facility] [address] [id number] [address] [place] [address], [place] [phone] Jan, [facility] [address] [id number] [address] [place] [address], [place] [address] Jan, [facility] [address] [id number] [address] [place] [address], [place] [address] Jan, [facility] [address] [id number] [address] [place] [address], [place] [address] Jan, [facility] [address] [id number] [address] [place] [address], [place] [address] Jan, [facility] [address] [id number] [address] [place] [address], [place] [address] Jan, [facility] [address] [id number] [address] [place] [address], [place] [address] Jan, [facility] [address] [id number] [address] [place] [address], [place] [address] Dec, [facility] [address] [id number] [address] [place] [address], [place] [address] Dec, [facility] [address] [id number] [address] [place] [address], [place] [address] Dec, [facility] [address] [id number] [address] [place] [address], [place] [address] Dec, 2014 [facility] [address] [id number] [address] [place] [address], [place] [address] Dec, 2014 [facility] [address] [id number] [address] [place] [address], [place] [address] Dec, 2014 [facility] [address] [id number] [address] [place] [address], [place] [address] Dec, 2014 [facility] [address] [id number] [address] [place] [address], [place] [address] Dec, 2014 [facility] [address] [id number] [address] [place] [address], [place] [address] Dec, 2014 [facility] [address] [id number] [address] [place] [address], [place] [address] Dec, 2014 [facility] [address] [id number] [address] [place] [address], [place] [address] Oct, [facility] [address] [id number] [address] [place] [address], [place] [address] Oct, [facility] [address] [id number] [address] [place] [address], [place] [address] Oct, [facility] [address] [id number] [address] [place] [address], [place] [address] Oct, [facility] [address] [id number] [address] [place] [address], [place] [address] Oct, [facility] [address] [id number] [address] [place] [address], [place] [address] Oct, [facility] [address] [id number] [address] [place] [address], [place] [address] Oct, [facility] [address] [id number] [address] [place] [address], [place] [address] Oct, [facility] [address] [id number] [address] [place] [address], [place] [address] Oct, [facility] [address] [id number] [address] [place] [address], [place] [address] Oct, [facility] [address] [id number] [address] [place] [address], [place] [address] Oct, [facility] [address] [id number] [address] [place] [address], [place] [address] Oct, [facility] [address] [id number] [address] [place] [address], [place] [address] Oct, [facility] [address] [id number] [address] [place] [address], [place] [address] Oct, [facility] [address] [id number] [address] [place] [address], [place] [address] Sep, [facility] [address] [id number] [address] [place] [address], [place] [address] Sep, [facility] [address] [id number] [address] [place] [address], [place] [address] Sep, [facility] [address] [id number] [address] [place] [address], [place] [address] Sep, [facility] [address] [id number] [address] [place] [address], [place] [address] Sep, [facility] [address] [id number] [address] [place] [address], [place] [address] Sep, [facility] [address] [id number] [address] [place] [address], [place] [address] Sep, [facility] [address] [id number] [address] [place] [address], [place] [address] Sep, [facility] [address] [id number] [address] [place] [address], [place] [address] Sep, [facility] [address] [id number] [address] [place] [address], [place] [address] Aug, [facility] [address] [id number] [address] [place] [address], [place] [address] Aug, [facility] [address] [id number] [address] [place] [address], [place] [address] Aug, [facility] [address] [id number] [address] [place] [address], [place] [address] 17 Aug, 2014 [facility] [address] [id number] [address] [place] [address], [place] [address] 16 Aug, 2014 [facility] [address] [id number] [address] [place] [address], [place] [address] Aug, [facility] [address] [id number] [address] [place] [address], [place] [address] Aug, [facility] [address] [id number] [address] [place] [address], [place] [address] Aug, [facility] [address] [id number] [address] [place] [address], [place] [address] Aug, [facility] [address] [id number] [address] [place] [address], [place] [address] 29 Jul, 2013 [facility] [address] [id number] [address] [place] [address], [place] [address] 29 Jul, 2013 [facility] [address] [id number] [address] [place] [address], [place] [address] 25 Jul, 2013 [facility] [address] [id number] [address] [place] [address], [place] [address] 25 Jul, 2013 [facility] [address] [id number] [address] [place] [address], [place] [address] 25 Jul, 2013 [facility] [address] [id number] [address] [place] [address], [place] [address] 25 Jul, 2013 [facility] [address] [id number] [address] [place] [address], [place] [address] Jul, 2013 [facility] [address] [id number] [address] [place] [address], [place] [address] 25 Jul, 2013 [facility] [address] [id number] [address] [place] [address] [place] [address] Jul, [facility] [address] [id number] [facility] [address] Jul, [facility] [address] [id number] [address] [place] [address], [place] [address] Jun, [facility] [address] [id number] [address] [place] [address], [place] [address] Jun, [facility] [address] [id number] [address] [place] [address], [place] [address] Jun, [facility] [address] [id number] [address] [place] [address], [place] [address] Jun, [facility] [address] [id number] [address] [place] [address], [place] [address] Jun, [facility] [address] [id number] [address] [place] [address], [place] [address] Jun, [facility] [address] [id number] [address] [place] [address], [place] [address] Jun, [facility] [address] [id number] [address] [place] [address], [place] [address] Jun, [facility] [address] [id number] [address] [place] [address], [place] [address] Jun, [facility] [address] [id number] [address] [place] [address], [place] [address] Jun, [facility] [address] [id number] [address] [place] [address], [place] [address] Jun, [facility] [address] [id number] [address] [place] [address], [place] [address] Jun, [facility] [address] [id number] [address] [place] [address], [place] [address] May, [facility] [address] [id number] [address] [place] [address], [place] [address] May, [facility] [address] [id number] [facility] [address] May, [facility] [address] [id number] [facility] [address] May, [facility] [address] [id number] [address] [place] [address], [place] [address] May, [facility] [address] [id number] [address] [place] [address], [place] [address] May, [facility] [address] [id number] [address] [place] [address], [place] [address] March, [facility] [address] [id number] [address] [place] [address], [place] [address] March, [facility] [address] [id number] [address] [place] [address], [place] [address] March, [facility] [address] [id number] [address] [place] [address], [place] [address] March, [facility] [address] [id number] [address] [place] [address], [place] [address] March, [facility] [address] [id number] [address] [place] [address], [place] [address] March, [facility] [address] [id number] [address] [place] [address], [place] [address] Feb, [facility] [address] [id number] [address] [place] [address], [place] [address] Feb, [facility] [address] [id number] [address] [place] [address], [place] [address] Feb, [facility] [address] [id number] [address] [place] [address], [place] [address] Feb, [facility] [address] [id number] [address] [place] [address], [place] [address] Jan, [facility] [address] [id number] [address] [place] [address], [place] [address] Jan, [facility] [address] [id number] [facility] [address] Jan, [facility] [address] [id number] [facility] [address] Jan, [facility] [address] [id number] [facility] [address] Jan, [facility] [address] [id number] [address] [place] [address], [place] [address] Jan, [facility] [address] [id number] [facility] [address] Jan, [facility] [address] [id number] [address] [place] [address], [place] [address] Jan, [facility] [address] [id number] [address] [place] [address], [place] [address] Jan, [facility] [address] [id number] [address] [place] [address], [place] [address] Jan, [facility] [address] [id number] [address] [place] [address], [place] [address] Jan, [facility] [address] [id number] [address] [place] [address], [place] [address] Jan, [facility] [address] [id number] [address] [place] [address], [place] [address] Dec, [facility] [address] [id number] [address] [place] [address], [place] [address] Dec, [facility] [address] [id number] [address] [place] [address], [place] [address] Dec, [facility] [address] [id number] [address] [place] [address], [place] [address] Dec, [facility] [address] [id number] [address] [place] [address], [place] [address] Dec, [facility] [address] [id number] [address] [place] [address], [place] [address] Dec, [facility] [address] [id number] [address] [place] [address], [place] [address] Nov, [facility] [address] [id number] [address] [place] [address], [place] [address] Nov, [facility] [address] [id number] [address] [place] [address], [place] [address] Oct, [facility] [address] [id number] [address] [place] [address], [place] [address] Oct, [facility] [address] [id number] [address] [place] [address], [place] [address] Oct, [facility] [address] [id number] [address] [place] [address], [place] [address] Oct, [facility] [address] [id number] [address] [place] [address], [place] [address] Oct, [facility] [address] [id number] [address] [place] [address], [place] [address] Oct, [facility] [address] [id number] [address] [place] [address], [place] [address] Sep, [facility] [address] [id number] [address] [place] [address], [place] [address] Sep, [facility] [address] [id number] [address] [place] [address], [place] [address] Sep, [facility] [address] [id number] [address] [place] [address], [place] [address] Sep, [facility] [address] [id number] [address] [place] [address], [place] [address] Aug, [facility] [address] [id number] [address] [place] [address], [place] [address] Aug, [facility] [address] [id number] [address] [place] [address], [place] [address] 08 Aug, 2013 [facility] [address] [id number] [address] [place] [address], [place] [address] 17 Jul, 2013 [facility] [address] [id number] [address] [place] [address], [place] [address] 14 Jul, 2013 [facility] [address] [id number] [address] [place] [address], [place] [address] 04 Jul, 2013 [facility] [address] [id number] [address] [place] [address], [place] [address] Jun, [facility] [address] [id number] [address] [place] [address], [place] [address] Jun, [facility] [address] [id number] [address] [place] [address], [place] [address] Jun, [facility] [address] [id number] [address] [place] [address], [place] [address] Apr, [facility] [address] [id number] [address] [place] [address], [place] [address] Apr, [facility] [address] [id number] [address] [place] [address], [place] [address] March, [facility] [address] [id number] [address] [place] [address], [place] [address] March, [facility] [address] [id number] [address] [place] [address], [place] [address] March, [facility] [address] [id number] [address] [place] [address], [place] [address] March, [facility] [address] [id number] [address] [place] [address], [place] [address] Feb, [facility] [address] [id number] [address] [place] [address], [place] [address] Jan, [facility] [address] [id number] [address] [place] [address], [place] [address] Dec, [facility] [address] [id number] [address] [place] [address], [place] [address] 08 Dec, 2012 [facility] [address] [id number] [address] [place] [address], [place] [address] 07 Dec, 2012 [facility] [address] [id number] [address] [place] [address], [place] [address] Nov, [facility] [address] [id number] [address] [place] [address], [place] [address] Oct, [facility] [address] [id number] [address] [place] [address], [place] [address] Oct, [facility] [address] [id number] [address] [place] [address], [place] [address] Sep, [facility] [address] [id number] [address] [place] [address], [place] [address] Sep, [facility] [address] [id number] [address] [place] [address], [place] [address] Sep, [facility] [address] [id number] [address] [place] [address], [place] [address] Sep, [facility] [address] [id number] [address] [place] [address], [place] [address] Sep, [facility] [address] [id number] [address] [place] [address], [place] [address] Sep, [facility] [address] [id number] [address] [place] [address], [place] [address] Sep, [facility] [address] [id number] [address] [place] [address], [place] [address] Aug, [facility] [address] [id number] [address] [place] [address], [place] [address] Aug, [facility] [address] [id number] [address] [place] [address], [place] [address] Aug, [facility] [address] [id number] [address] [place] [address], [place] [address] Aug, [facility] [address] [id number] [address] [place] [address], [place] [address] 08 Aug, 2012 [facility] [address] [id number] [address] [place] [address], [place] [address] Aug, [facility] [address] [id number] [address] [place] [address], [place] [address] Aug, [facility] [address] [id number] [address] [place] [address], [place] [address] Aug, [facility] [address] [id number] [address] [place] [address], [place] [address] Jul, [facility] [address] [id number] [address] [place] [address], [place] [address] Jul, [facility] [address] [id number] [address] [place] [address], [place] [address] Jun, [facility] [address] [id number] [address] [place] [address], [place] [address] May, [facility] [address] [id number] [address] [place] [address], [place] [address] Apr, [facility] [address] [id number] [address] [place] [address], [place] [address] Apr, [facility] [address] [id number] [address] [place] [address], [place] [address] Apr, [facility] [address] [id number] [address] [place] [address], [place] [address] March, [facility] [address] [id number] [address] [place] [address], [place] [address] March, [facility] [address] [id number] [address] [place] [address], [place] [phone] March, [facility] [address] [id number] [address] [place] [address], [place] [address] March, [facility] [address] [id number] [address] [place] [address], [place] [address] March, [facility] [address] [id number] [address] [place] [address], [place] [id number] March, [facility] [address] [id number] [address] [place] [address], [place] [address] March, [facility] [address] [id number] [address] [place] [address], [place] [id number] Jan, [facility] [address] [id number] [address] [place] [address], [place] [address] Jan, [facility] [address] [id number] [address] [place] [address], [place] [address] Jan, [facility] [address] [id number] [address] [place] [address], [place] [address] Jan, [facility] [address] [id number] [address] [place] [address], [place] [address] Jan, [facility] [address] [id number] [address] [place] [address], [place] [address] Dec, [facility] [address] [id number] [address] [place] [address], [place] [address] Dec, [facility] [address] [id number] [address] [place] [address], [place] [address] Nov, [facility] [address] [id number] [address] [place] [address], [place] [address] Nov, [facility] [address] [id number] [address] [place] [address], [place] [address] Nov, [facility] [address] [id number] [address] [place] [address], [place] [address] Nov, [facility] [address] [id number] [address] [place] [address], [place] [id number] Oct, [facility] [address] [id number] [address] [place] [address], [place] [address] Oct, [facility] [address] [id number] [address] [place] [address], [place] [address] 14 Sep, 2011 [facility] [address] [id number] [address] [place] [address], [place] [address] 10 Sep, 2011 [facility] [address] [id number] [address] [place] [address], [place] [id number] 10 Sep, 2011 [facility] [address] [id number] [address] [place] [address], [place] [address] 11 May, 2011 [facility] [address] [id number] [address] [place] [address], [place] [address] 20 Nov, 2010 [facility] [address] [id number] [address] [place] [address], [place] [address] 29 Oct, 2010 [facility] [address] [id number] [address] [place] [address], [place] [address] 14 Oct, 2010 [facility] [address] [id number] [address] [place] [address], [place] [id number] 08 Oct, 2010 [facility] [address] [id number] [address] [place] [address], [place] [id number] 15 Sep, 2010 [facility] [address] [id number] [address] [place] [address], [place] [id number] 02 Sep, 2010 [facility] [address] [id number] [address] [place] [address], [place] [address] Aug, [facility] [address] [id number] [address] [place] [address], [place] [address] March, [facility] [address] [id number] [address] [place] [address], [place] [address] Oct, [facility] [address] [id number] [address] [place] [address], [place] [id number] Oct, [facility] [address] [id number] [address] [place] [address], [place] [address] Oct, [facility] [address] [id number] [address] [place] [address] [address] Oct, [facility] [place] [address] [id number] [address] [place] [id number] Sep, [facility] [place] [address] [id number] [address] [place] [id number] Sep, [facility] [place] [address] [id number] [address] [place] [id number] Sep, [facility] [place] [address] [id number] [address] [place] [id number] Aug, [facility] [place] [address] [id number] [address] [place] [id number] Aug, [facility] [place] [address] [id number] [address] [place] [id number] Aug, [facility] [place] [address] [facility] [id number] [address] [place] [address] [id number] Jan, IMMUNIZATIONS No Known Immunizations SOCIAL HISTORY Never Assessed REASON FOR VISIT PLAN OF CARE VITAL SIGNS MEDICATIONS Medication Instructions Dosage Frequency Start Date End Date Duration S tatus Lipitor 80 MG Orally Once a day 1 tablet 24h Jan, 30 day(s) Active RESULTS No Results PROCEDURES No Known procedures [...]
--- OUTSIDE RECORDS SUMMARY | 2020-06-13 16:10 | XMS REPORT ---
Author Author Jah Durant Doctor Organization [facility] Address Unknown Phone Unavailable Care Team Providers Care Business Analysis Consultant Name Role Phone Migration, Doctor Unavailable Unavailable PROBLEMS Type Condition ICD9-CM Code PND72-IN Code Onset Dates Condition S tatus SNOMED Code Problem Hypothyroid E03.9 Active 86900391 Problem Neuropathy G62.9 Active 372660126 Problem Mixed hyperlipidemia E78.2 Active 678713743 Problem Overactive bladder N32.81 Active 2 22400204 Problem Irritable bowel syndrome with diarrhea K58.0 Active 840008424 Problem Gastroesophageal reflux disease with esophagitis K 21.0 Active 160227325 Problem Type 2 diabetes mellitus with hyperglycemia E11.65 Active 03301170 Problem MCC current use of insulin Z79.4 Active 676341570 Problem Current non-adherence to medical treatment Z91.19 Active 4051732 Problem Recurrent major depressive disorder, in partial remission F33.41 Active 81724426 Problem Chronic fatigue R53.82 Active 8422 9001 Problem 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 Active 135284020 Problem Pulmonary emphysema, unspecified emphysema type J4 3.9 Active 65788288 Problem Thrombocytosis D47.3 Active 51082 09 Problem Acquired hypothyroidism E03.9 Active 781393834 Problem Essential (primary) hypertension I10 Active 57986306 Problem Chronic pain G89.29 Active 3105761 1 Problem Anxiety disorder, unspecified type F41.9 Active 374378243 Problem Major depressive disorder, recurrent episode, moderate F33.1 Active 278974342 Problem Hypertriglyceridemia E78.1 Active 968471712 Problem Gastroparesis K31.84 Active 015427 006 ALLERGIES No Information ENCOUNTERS Encounter Location Date Diagnosis [facility] [address] [facility] [id number] [address] [place] [id number] May, [facility] [address] [facility] [id number] [address] [place] [address] May, Chronic pain G89.29 [facility] [address] [facility] [id number] [address] [place] [address] Apr, Poison maryam dermatitis L23.7 [facility] [address] [facility] [id number] [address] [place] [address] Apr, Chronic pain G89.29 [facility] [address] [facility] [id number] [address] [place] [address] March, Type 2 diabetes mellitus wit h hyperglycemia E11.65 [facility] [address] [facility] [id number] [address] [place] [address] March, Chronic pain G89.29 [facility] [address] [facility] [id number] [address] [place] [address] March, [address] [address] Feb, [facility] [address] [facility] [id number] [address] [place] [address] Feb, Other chronic pain G89.29 an d Chronic pain G89.29 [facility] [address] [facility] [id number] [address] [place] [address] Jan, Mixed hyperlipidemia E78.2 [facility] [address] [facility] [id number] [address] [place] [address] Jan, Chronic pain G89.29 [facility] [address] 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 [id number] [address] [place] [id number] Dec, Chronic pain G89.29 [facility] [address] [facility] [id number] [address] [place] [address] Nov, Chronic pain G89.29 [facility] [address] [place] [id number] [address] [place] [id number] Nov, [facility] [address] [place] [id number] [address] [place] [id number] Oct, Chronic pain G89.29 [facility] [address] [place] [id number] [address] [place] [id number] Oct, [facility] [address] [place] [id number] [place] [address] Sep, [facility] [address] [place] [id number] [place] [address] Sep, Type 2 diabetes mellitus wit h hyperglycemia E11.65 [place] [address] [address] Sep, Chronic pain G89.29 [place] [address] [address] Sep, [facility] [address] [address] Sep, Type 2 diabetes mellitus wit h hyperglycemia E11.65 ; Irritable bowel syndrome with diarrhea K58.0 ; Gastroparesis K31.84 ; 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 and Dermatitis L30.9 [facility] [address] [place] [id number] [address] [place] [address] Aug, Chronic pain G89.29 [place] [address] [place] [id number] [address] [place] [address] Jul, Chronic pain G89.29 [place] [address] [place] [id number] [place] [address] Jun, Type 2 diabetes mellitus wit h hyperglycemia E11.65 ; Neuropathy G62.9 ; Recurrent major depressive disorder, in partial remission F33.41 ; Chronic pain G89.29 and Hypertriglyceridemia E78.1 [facility] [address] [place] [id number] [address] [place] [address] Jun, Hypothyroid E03.9 [facility] [address] [id number] [address] [place] [id number] 16 Jun, 2018 Major depressive disorder, r ecurrent episode, moderate F33.1 and Anxiety disorder, unspecified type F41.9 [facility] [address] [id number] [address] [place] [id number] Jun, [facility] [address] 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 [id number] [address] [place] [address] May, [place] [address] [facility] [id number] [address] [place] [address] May, [facility] [address] [id number] [address] [place] [address] May, [place] [address] [facility] [id number] [address] [place] [address] May, Generalized abdominal pain R 10.84 and Candidal dermatitis B37.2 [facility] [address] [facility] [id number] [address] [place] [address] May, [place] [address] [facility] [id number] [address] [place] [address] May, [place] [address] [facility] [id number] [address] [place] [address] May, Nodular radiologic density R 93.8 ; Weight loss, unintentional R63.4 and Pulmonary emphysema, unspecified emphysema type J43.9 [facility] [address] [facility] [id number] [address] [place] [address] May, Chronic pain G89.29 [place] [address] [id number] [address] [place] [address] 09 May, 2018 Syncope and collapse R55 ; C hronic fatigue R53.[address] lung screening R91.8 [facility] [address] [id number] [address] [place] [address] May, [facility] [address] [facility] [id number] [address] [place] [address] Apr, Chronic fatigue R53.82 ; Abn ormal chest CT R93.8 ; Elevated erythrocyte sedimentation rate R70.0 ; Hypothyroid E03.9 and Recurrent major depressive disorder, in partial remission F33.41 [facility] [address] [id number] [address] [place] [address] Apr, Hypothyroid E03.9 [facility] [address] [facility] [id number] [address] [place] [address] Apr, Depression F32.9 [facility] [address] [facility] [id number] [address] [place] [address] Apr, [facility] [address] [facility] [id number] [address] [place] [phone] March, [facility] [address] [facility] [id number] [address] [place] [phone] March, Hypothyroid E03.9 [facility] [address] [facility] [id number] [address] [place] [address] March, Diabetes mellitus E11.9 and Hypothyroid E03.9 [facility] [address] [id number] [address] [place] [id number] March, Diabetes mellitus E11.9 [facility] [address] [facility] [id number] [address] [place] [id number] March, Hypothyroid E03.9 and Elevat ed liver enzymes R74.8 [facility] [address] [facility] [id number] [address] [place] [address] March, Type 2 diabetes mellitus wit h [...] major depressive disorder, in partial remission F33.41 [place] [address] [facility] [id number] [address] [place] [address] Feb, Chronic pain G89.29 [place] [address] [facility] [id number] [address] [place] [address] Feb, Type 2 diabetes mellitus wit h hyperglycemia E11.65 and Skin lesion of scalp L98.9 [place] [address] 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 [id number] [address] [place] [address] Jan, [place] [address] [facility] [id number] [address] [place] [address] Jan, Controlled substance agreeme nt signed Z79.899 [place] [address] 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 [id number] [address] [place] [phone] 02 Dec, 2017 Controlled substance agreeme nt signed Z79.899 [place] [address] [facility] [id number] [address] [place] [address] Nov, Type 2 diabetes mellitus wit h hyperglycemia E11.65 and Current non- adherence to medical treatment Z91.19 [place] [address] [facility] [id number] [address] [place] [address] Nov, [place] [address] [place] [id number] [address] [place] [address] Nov, Chronic pain G89.29 [place] [address] [facility] [id number] [address] [place] [address] Nov, [place] [address] [place] [id number] [address] [place] [address] Nov, Hypothyroid E03.9 [place] [address] [facility] [id number] [address] [place] [address] Nov, Hypothyroid E03.9 [place] [address] [facility] [id number] [address] [place] [address] Nov, Pulmonary emphysema, unspeci fied emphysema type J43.9 and Irritable bowel syndrome with diarrhea K58.0 [place] [address] [facility] [id number] [address] [place] [address] Oct, [place] [address] [facility] [id number] [address] [place] [address] Oct, [place] [address] [place] [id number] [address] [place] [address] Oct, [place] [address] [facility] [id number] [address] [place] [address] Oct, [place] [address] [facility] [id number] [address] [place] [address] Oct, Chronic pain G89.29 [place] [address] [place] [id number] [address] [place] [address] Oct, Diabetes mellitus E11.9 ; De pression F32.9 ; Mixed hyperlipidemia E78.2 ; Hypotension, unspecified hypotension type I95.9 ; Pulmonary emphysema, unspecified emphysema type J43.9 and Weight loss, unintentional R63.4 [place] [address] [facility] [id number] [address] [place] [address] Oct, Chronic pain G89.29 [place] [address] [place] [id number] [address] [place] [address] Sep, Chronic pain G89.29 [place] [id number] [place] [id number] Sep, Hypothyroid E03.9 and Diabet es mellitus E11.9 [place] [id number] [address] [place] [address] Aug, Type 2 diabetes mellitus wit h hyperglycemia E11.65 ; [facility] current use of insulin Z79.4 ; Essential (primary) hypertension I10 ; Hypothyroid E03.9 ; Neuropathy G62.9 ; Chronic pain G89.29 ; Mixed hy perlipidemia E78.2 and Encounter for immunization Z23 [place] [address] [facility] [id number] [address] [place] [address] Aug, Chronic pain G89.29 [place] [address] [place] [id number] [address] [place] [phone] Aug, Overactive bladder N32.81 ; Diabetes mellitus E11.9 and Chronic pain G89.29 [place] [address] [place] [id number] [address] [place] [address] Jul, [facility] [address] [facility] [id number] [address] [place] [address] Jun, [facility] [address] [facility] [id number] [address] [place] [address] Jun, [facility] [address] [facility] [id number] [address] [place] [address] Jun, Hypothyroid E03.9 [facility] [address] [facility] [id number] [address] [place] [address] Jun, Diabetes mellitus E11.9 ; Hy pothyroid E03.9 ; Neuropathy G62.9 ; Chronic pain G89.29 and Neck mass R22.1 [facility] [address] [facility] [id number] [address] [place] [phone] Apr, [facility] [address] [facility] [id number] [address] [place] [address] Apr, Acute cystitis without hemat uria N30.00 [facility] [address] [facility] [id number] [address] [place] [address] March, [facility] [address] [facility] [id number] [address] [place] [address] March, [facility] [address] [place] [id number] [address] [place] [address] March, Near syncope R55 [facility] [address] [facility] [id number] [address] [place] [address] Feb, [facility] [address] [facility] [id number] [address] [place] [address] Feb, Chronic pain G89.29 [facility] [address] [facility] [id number] [address] [place] [address] Feb, [facility] [address] [facility] [id number] [address] [place] [address] Feb, [facility] [address] [facility] [id number] [address] [place] [address] Jan, Chronic pain G89.29 [facility] [address] [facility] [id number] [address] [place] [address] Jan, [facility] [address] [place] [id number] [address] [place] [address] 16 Jan, 2017 [facility] [address] [address] 14 Jan, 2017 Diabetes mellitus E11.9 ; Hy pothyroid E03.9 ; GERD (gastroesophageal reflux disease) K21.9 ; Insomnia G47.00 ; Functional 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 ; Neuropathy G62.9 ; Depression F32.9 ; Chronic pain G89.29 ; Irritable bowel syndrome with diarrhea K58.0 ; Overactive bladder N32.81 ; Mixed hyperlipidemia E78.2 and Bronchitis J40 [facility] [address] [place] [id number] [address] [place] [address] Dec, [facility] [address] [place] [id number] [address] [place] [address] Dec, [facility] [address] [place] [id number] [address] [place] [address] Dec, [facility] [address] [place] [id number] [address] [place] [address] Dec, [facility] [address] [place] [id number] [address] [place] [address] Dec, Chronic pain G89.29 [facility] [address] [facility] [id number] [address] [place] [address] Dec, [facility] [address] [address] Dec, [facility] [address] [place] [id number] [address] [place] [address] 17 Dec, 2016 Type 2 diabetes mellitus wit h foot ulcer E11.621 [facility] [address] [place] [id number] [address] [place] [address] 17 Dec, 2016 Type 2 diabetes mellitus wit h foot ulcer E11.621 [place] [address] [address] 14 Dec, 2016 HTN (hypertension) I10 ; Dep ression F32.9 ; Type 2 diabetes mellitus with foot ulcer E11.621 ; Functional 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 ; Irritable bowel syndrome with diarrhea K58.0 ; Chronic pain G89.29 ; Insomnia G47.00 ; Overactive bladder N32.81 ; Mixed hyperlipidemia E78.2 ; Gastroesophageal reflux disease with esophagitis K21.0 and Acquired hypothyroidism E03.9 [place] [address] [address] Nov, [place] [address] [address] Oct, [place] [address] [address] Oct, [place] [address] [address] Oct, [place] [address] [address] Sep, Functional 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 ; HTN (hypertension) I10 ; Diabetes mellitus E11.9 ; Depression F32.9 ; Overactive bladder N32.81 ; Mixed hyperlipidemia E78.2 ; Gastroesophageal reflux disease without esophagitis K21.9 ; Chronic pain G89.29 ; Insomnia G47.00 and Acquired hypothyroidism E03.9 [place] [address] [address] Sep, [place] [address] [address] Aug, Encounter for immunization Z 23 [place] [address] [address] 06 Aug, 2016 [place] [address] [address] Jul, [place] [address] [address] Jun, Type 2 diabetes mellitus wit hout complications E11.9 ; HTN (hypertension) I10 ; Hypothyroid E03.9 ; Neuropathy G62.9 ; Depression F32.9 ; Chronic pain G89.29 ; GERD (gastroesophageal reflux disease) K21.9 ; Insomnia G47.00 ; Overactive bladder N32.81 ; Mixed hyperlipidemia E78.2 ; Diarrhea of infectious origin A09 and Environmental allergies Z91.09 [place] [address] [address] Apr, [place] [address] [address] March, Hypothyroidism, unspecified E03.9 and Mixed hyperlipidemia E78.2 [place] [address] [address] March, Diabetes mellitus E11.9 ; HT N (hypertension) I10 ; Hypothyroid E03.9 ; Depression F32.9 ; Overactive bladder N32.81 ; Other chronic pain G89.29 ; Lumbago with sciatica, unspecified side M54.40 ; Environmental allergies Z91.09 and Gastroesophageal reflux disease, esophagitis presence not specified K21.9 [place] [address] [address] March, [place] [address] [address] Jan, HTN (hypertension) I10 ; Hyp othyroid E03.9 ; Neuropathy G62.9 ; Diabetes mellitus E11.9 ; Chronic pain G89.29 ; GERD (gastroesophageal reflux disease) K21.9 ; Overactive bladder N32.81 and Depression F32.9 [place] [address] [address] Dec, Ear pain, left H92.02 ; HTN (hypertension) I10 ; Hypothyroid E03.9 ; Neuropathy G62.9 ; Diabetes mellitus E11.9 ; Depression F32.9 ; GERD (gastroesophageal reflux disease) K21.9 ; Insomnia G47.00 and Overactive bladder N32.81 [facility] [address] [facility] [id number] [address] [place] [address] Nov, Overactive bladder N32.81 an d Chronic pain G89.29 [place] [id number] [place] [address] Nov, Kidney failure N19 [place] [address] [place] [id number] [address] [place] [address] Nov, [place] [address] [place] [id number] [address] [place] [address] Nov, [place] [address] [place] [id number] [address] [place] [address] Nov, Diabetes mellitus E11.9 ; De pression F32.9 ; Chronic pain G89.29 ; GERD (gastroesophageal reflux disease) K21.9 ; Insomnia G47.00 ; HTN (hypertension) I10 ; Hypothyroid E03.9 ; COPD (chronic obstructive pulmonary disease) J44.9 ; Bladder incontinence R32 and Incontinence R32 [place] [id number] [place] [id number] [address] [place] [id number] Sep, Type 2 diabetes mellitus wit h foot ulcer E11.621 and Chromosomal abnormality, 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 [id number] [address] [place] [id number] Sep, [place] [address] [place] [id number] [address] [place] [id number] Aug, [place] [address] [place] [id number] [address] [place] [phone] Aug, [place] [address] [place] [id number] [address] [place] [phone] Aug, HTN (hypertension) I10 ; Enc ounter for immunization Z23 ; Hypothyroid E03.9 ; Neuropathy G62.9 ; Diabetes mellitus E11.9 ; Depression F32.9 ; Chronic pain G89.29 ; GERD (gastroesophageal reflux disease) K21.9 ; Insomnia G47.00 and COPD (chronic obstructive pulmonary disease) J44.9 [place] [address] [phone] Jun, [place] [address] [phone] Jun, [place] [address] [phone] May, Essential hypertension, ivis gn 401.1 ; Unspecified hypothyroidism 244.9 ; Insomnia, unspecified 780.52 ; Shortness of breath 786.05 ; Depression 311 ; COPD (chronic obstructive pulmonary disease) 496 ; GERD (gastroesophageal reflux disease) 530.81 and Diabetes 1.5, 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 [id number] May, [place] [address] [phone] May, [address] [id number] May, Shortness of breath 786.05 ; Essential hypertension, benign 401.1 ; Diabetes mellitus 250.00 ; Hyperlipidemia 272.4 ; Hypothyroid 244.9 ; Insomnia 780.52 and Cough 786.[address] [phone] Apr, [address] [id number] March, Shortness of breath 786.05 ; Nausea with vomiting 787.01 ; Essential hypertension, benign 401.1 ; Diabetes mellitus 250.00 ; Hyperlipidemia 272.4 and Hypothyroid 244.[address] [id number] Feb, [facility] [address] [id number] [address] [place] [address], [place] [address] Feb, [facility] [address] [id number] [address] [place] [address], [place] [address] Jan, [facility] [address] [id number] [address] [place] [address], [place] [address] Jan, [facility] [address] [id number] [address] [place] [address], [place] [address] Jan, [facility] [address] [id number] [address] [place] [address], [place] [address] Jan, [facility] [address] [id number] [address] [place] [address], [place] [address] Jan, [facility] [address] [id number] [address] [place] [address], [place] [address] Jan, [facility] [address] [id number] [address] [place] [address], [place] [address] Jan, [facility] [address] [id number] [address] [place] [address], [place] [address] Jan, [facility] [address] [id number] [address] [place] [address], [place] [address] Jan, [facility] [address] [id number] [address] [place] [address], [place] [address] Jan, [facility] [address] [id number] [address] [place] [address], [place] [address] Dec, [facility] [address] [id number] [address] [place] [address], [place] [address] Dec, [facility] [address] [id number] [address] [place] [address], [place] [address] Dec, [facility] [address] [id number] [address] [place] [address], [place] [address] Dec, [facility] [address] [id number] [address] [place] [address], [place] [address] Dec, 2014 [facility] [address] [id number] [address] [place] [address], [place] [address] Dec, 2014 [facility] [address] [id number] [address] [place] [address], [place] [address] Dec, 2014 [facility] [address] [id number] [address] [place] [address], [place] [address] Dec, 2014 [facility] [address] [id number] [address] [place] [address], [place] [address] Dec, 2014 [facility] [address] [id number] [address] [place] [address], [place] [address] Dec, 2014 [facility] [address] [id number] [address] [place] [address], [place] [address] Oct, [facility] [address] [id number] [address] [place] [address], [place] [address] Oct, [facility] [address] [id number] [address] [place] [address], [place] [address] Oct, [facility] [address] [id number] [address] [place] [address], [place] [address] Oct, [facility] [address] [id number] [address] [place] [address], [place] [address] Oct, [facility] [address] [id number] [address] [place] [address], [place] [address] Oct, [facility] [address] [id number] [address] [place] [address], [place] [address] Oct, [facility] [address] [id number] [address] [place] [address], [place] [address] Oct, [facility] [address] [id number] [address] [place] [address], [place] [address] Oct, [facility] [address] [id number] [address] [place] [address], [place] [address] Oct, [facility] [address] [id number] [address] [place] [address], [place] [address] Oct, [facility] [address] [id number] [address] [place] [address], [place] [address] Oct, [facility] [address] [id number] [address] [place] [address], [place] [address] Oct, [facility] [address] [id number] [address] [place] [address], [place] [address] Oct, [facility] [address] [id number] [address] [place] [address], [place] [address] Sep, [facility] [address] [id number] [address] [place] [address], [place] [address] Sep, [facility] [address] [id number] [address] [place] [address], [place] [address] Sep, [facility] [address] [id number] [address] [place] [address], [place] [address] Sep, [facility] [address] [id number] [address] [place] [address], [place] [address] Sep, [facility] [address] [id number] [address] [place] [address], [place] [address] Sep, [facility] [address] [id number] [address] [place] [address], [place] [address] Sep, [facility] [address] [id number] [address] [place] [address], [place] [address] Sep, [facility] [address] [id number] [address] [place] [address], [place] [address] Sep, [facility] [address] [id number] [address] [place] [address], [place] [address] Aug, [facility] [address] [id number] [address] [place] [address], [place] [address] Aug, [facility] [address] [id number] [address] [place] [address], [place] [address] 17 Aug, 2014 [facility] [address] [id number] [address] [place] [address], [place] [address] 17 Aug, 2014 [facility] [address] [id number] [address] [place] [address], [place] [address] 16 Aug, 2014 [facility] [address] [id number] [address] [place] [address], [place] [address] Aug, [facility] [address] [id number] [address] [place] [address], [place] [address] Aug, [facility] [address] [id number] [address] [place] [address], [place] [address] Aug, [facility] [address] [id number] [address] [place] [address], [place] [address] Aug, [facility] [address] [id number] [address] [place] [address], [place] [address] 29 Jul, 2013 [facility] [address] [id number] [address] [place] [address], [place] [address] 29 Jul, 2013 [facility] [address] [id number] [address] [place] [address], [place] [address] 25 Jul, 2013 [facility] [address] [id number] [address] [place] [address], [place] [address] 25 Jul, 2013 [facility] [address] [id number] [address] [place] [address], [place] [address] 25 Jul, 2013 [facility] [address] [id number] [address] [place] [address], [place] [address] 25 Jul, 2013 [facility] [address] [id number] [address] [place] [address], [place] [address] 25 Jul, 2013 [facility] [address] [id number] [address] [place] [address], [place] [address] 25 Jul, 2013 [facility] [address] [id number] [address] [place] [address], [place] [address] 02 Jul, 2013 [facility] [address] [id number] [facility] [place] [address] Jul, [facility] [address] [id number] [facility] [place] [address] Jun, [facility] [address] [id number] [facility] [place] [address] Jun, [facility] [address] [id number] [address] [place] [address], [place] [address] Jun, [facility] [address] [id number] [address] [place] [address], [place] [address] Jun, [facility] [address] [id number] [address] [place] [address], [place] [address] Jun, [facility] [address] [id number] [address] [place] [address], [place] [address] Jun, [facility] [address] [id number] [address] [place] [address], [place] [address] Jun, [facility] [address] [id number] [address] [place] [address], [place] [address] Jun, [facility] [address] [id number] [address] [place] [address], [place] [address] Jun, [facility] [address] [id number] [address] [place] [address], [place] [address] Jun, [facility] [address] [id number] [address] [place] [address], [place] [address] Jun, [facility] [address] [id number] [address] [place] [address], [place] [address] Jun, [facility] [address] [id number] [address] [place] [address], [place] [address] May, [facility] [address] [id number] [address] [place] [address], [place] [address] May, [facility] [address] [id number] [address] [place] [address], [place] [address] May, [facility] [address] [id number] [address] [place] [address], [place] [address] May, [facility] [address] [id number] [address] [place] [address], [place] [address] May, [facility] [address] [id number] [address] [place] [address], [place] [address] May, [facility] [address] [id number] [address] [place] [address], [place] [address] March, [facility] [address] [id number] [address] [place] [address], [place] [address] March, [facility] [address] [id number] [address] [place] [address], [place] [address] March, [facility] [address] [id number] [address] [place] [address], [place] [address] March, [facility] [address] [id number] [address] [place] [address], [place] [address] March, [facility] [address] [id number] [address] [place] [address], [place] [address] March, [facility] [address] [id number] [address] [place] [address], [place] [address] Feb, [facility] [address] [id number] [address] [place] [address], [place] [address] Feb, [facility] [address] [id number] [address] [place] [address], [place] [address] Feb, [facility] [address] [id number] [address] [place] [address], [place] [address] Feb, [facility] [address] [id number] [address] [place] [address], [place] [address] Jan, [facility] [address] [id number] [address] [place] [address], [place] [address] Jan, [facility] [address] [id number] [address] [place] [address], [place] [address] Jan, [facility] [address] [id number] [address] [place] [address], [place] [address] Jan, [facility] [address] [id number] [address] [place] [address], [place] [address] Jan, [facility] [address] [id number] [address] [place] [address], [place] [address] Jan, [facility] [address] [id number] [address] [place] [address], [place] [address] Jan, [facility] [address] [id number] [address] [place] [address], [place] [address] Jan, [facility] [address] [id number] [address] [place] [address], [place] [address] Jan, [facility] [address] [id number] [address] [place] [address], [place] [address] Jan, [facility] [address] [id number] [address] [place] [address], [place] [address] Jan, [facility] [address] [id number] [address] [place] [address], [place] [address] Jan, [facility] [address] [id number] [address] [place] [address], [place] [address] Dec, [facility] [address] [id number] [address] [place] [address], [place] [address] Dec, [facility] [address] [id number] [address] [place] [address], [place] [address] Dec, [facility] [address] [id number] [address] [place] [address], [place] [address] Dec, [facility] [address] [id number] [address] [place] [address], [place] [address] Dec, [facility] [address] [id number] [address] [place] [address], [place] [address] Dec, [facility] [address] [id number] [address] [place] [address], [place] [address] Nov, [facility] [address] [id number] [address] [place] [address], [place] [address] Nov, [facility] [address] [id number] [address] [place] [address], [place] [address] Oct, [facility] [address] [id number] [address] [place] [address], [place] [address] Oct, [facility] [address] [id number] [address] [place] [address], [place] [address] Oct, [facility] [address] [id number] [address] [place] [address], [place] [address] Oct, [facility] [address] [id number] [address] [place] [address], [place] [address] Oct, [facility] [address] [id number] [address] [place] [address], [place] [address] Oct, [facility] [address] [id number] [address] [place] [address], [place] [address] Sep, [facility] [address] [id number] [address] [place] [address], [place] [address] Sep, [facility] [address] [id number] [address] [place] [address], [place] [address] Sep, [facility] [address] [id number] [address] [place] [id number] Sep, [facility] [address] [id number] [address] [place] [address], [place] [address] Aug, [facility] [address] [id number] [address] [place] [address], [place] [address] Aug, [facility] [address] [id number] [address] [place] [address], [place] [address] Aug, [facility] [address] [id number] [address] [place] [id number] 17 Jul, 2013 [facility] [address] [id number] [address] [place] [address], [place] [address] 14 Jul, 2013 [facility] [address] [id number] [address] [place] [address], [place] [address] 04 Jul, 2013 [facility] [address] [id number] [address] [place] [address], [place] [address] Jun, [facility] [address] [id number] [address] [place] [address], [place] [address] Jun, [facility] [address] [id number] [address] [place] [address], [place] [address] Jun, [facility] [address] [id number] [address] [place] [address], [place] [address] Apr, [facility] [address] [id number] [address] [place] [address], [place] [address] Apr, [facility] [address] [id number] [address] [place] [address], [place] [address] March, [facility] [address] [id number] [address] [place] [address], [place] [address] March, [facility] [address] [id number] [address] [place] [address], [place] [address] March, [facility] [address] [id number] [address] [place] [address], [place] [address] March, [facility] [address] [id number] [address] [place] [address], [place] [address] Feb, [facility] [address] [id number] [address] [place] [address], [place] [address] Jan, [facility] [address] [id number] [address] [place] [address], [place] [address] Dec, [facility] [address] [id number] [address] [place] [address], [place] [address] Dec, [facility] [address] [id number] [address] [place] [address], [place] [address] 07 Dec, 2012 [facility] [address] [id number] [address] [place] [address], [place] [address] Nov, [facility] [address] [id number] [address] [place] [address], [place] [address] Oct, [facility] [address] [id number] [address] [place] [address], [place] [address] Oct, [facility] [address] [id number] [address] [place] [address], [place] [address] Sep, [facility] [address] [id number] [address] [place] [address], [place] [address] Sep, [facility] [address] [id number] [address] [place] [address], [place] [address] Sep, [facility] [address] [id number] [address] [place] [address], [place] [address] Sep, [facility] [address] [id number] [address] [place] [address], [place] [address] Sep, [facility] [address] [id number] [address] [place] [address], [place] [address] Sep, [facility] [address] [id number] [address] [place] [address], [place] [address] Sep, [facility] [address] [id number] [address] [place] [address], [place] [address] Aug, [facility] [address] [id number] [address] [place] [address], [place] [address] 16 Aug, 2012 [facility] [address] [id number] [address] [place] [address], [place] [address] Aug, [facility] [address] [id number] [address] [place] [address], [place] [address] Aug, [facility] [address] [id number] [address] [place] [address], [place] [address] Aug, [facility] [address] [id number] [address] [place] [address], [place] [address] Aug, [facility] [address] [id number] [address] [place] [address], [place] [address] Aug, [facility] [address] [id number] [address] [place] [address], [place] [address] Aug, [facility] [address] [id number] [address] [place] [address], [place] [address] Jul, [facility] [address] [id number] [address] [place] [address], [place] [address] Jul, [facility] [address] [id number] [address] [place] [address], [place] [address] Jun, [facility] [address] [id number] [address] [place] [address], [place] [id number] May, [facility] [address] [id number] [address] [place] [address], [place] [id number] Apr, [facility] [address] [id number] [address] [place] [address], [place] [address] Apr, [facility] [address] [id number] [address] [place] [address], [place] [id number] Apr, [facility] [address] [id number] [address] [place] [address], [place] [id number] March, [facility] [address] [id number] [address] [place] [address], [place] [id number] March, [facility] [address] [id number] [address] [place] [address], [place] [id number] March, [facility] [address] [id number] [address] [place] [address], [place] [id number] March, [facility] [address] [id number] [address] [place] [address], [place] [id number] March, [facility] [address] [id number] [address] [place] [address], [place] [id number] March, [facility] [address] [id number] [address] [place] [address], [place] [id number] March, [facility] [address] [id number] [address] [place] [address], [place] [id number] Jan, [facility] [address] [id number] [address] [place] [address], [place] [id number] Jan, [facility] [address] [id number] [address] [place] [address], [place] [id number] Jan, [facility] [address] [id number] [address] [place] [address], [place] [address] Jan, [facility] [address] [id number] [address] [place] [address], [place] [id number] Jan, [facility] [address] [id number] [address] [place] [address], [place] [address] Dec, [facility] [address] [id number] [address] [place] [address], [place] [address] Dec, [facility] [address] [id number] [address] [place] [address], [place] [address] Nov, [facility] [address] [id number] [address] [place] [address], [place] [address] Nov, [facility] [address] [id number] [address] [place] [address], [place] [id number] Nov, [facility] [address] [id number] [address] [place] [address], [place] [id number] Nov, [facility] [address] [id number] [address] [place] [address], [place] [id number] Oct, [facility] [address] [id number] [address] [place] [address], [place] [id number] Oct, [facility] [address] [id number] [address] [place] [address], [place] [id number] 14 Sep, 2011 [facility] [address] [id number] [address] [place] [address], [place] [id number] 10 Sep, 2011 [facility] [address] [id number] [address] [place] [address], [place] [id number] 10 Sep, 2011 [facility] [address] [id number] [address] [place] [address], [place] [id number] 11 May, 2011 [facility] [address] [id number] [address] [place] [address], [place] [id number] 20 Nov, 2010 [facility] [address] [id number] [address] [place] [address], [place] [id number] 29 Oct, 2010 [facility] [address] [id number] [address] [place] [address], [place] [id number] 14 Oct, 2010 [facility] [address] [id number] [address] [place] [address], [place] [id number] 08 Oct, 2010 [facility] [address] [id number] [address] [place] [address], [place] [id number] 15 Sep, 2010 [facility] [address] [id number] [address] [place] [address], [place] [address] Sep, [facility] [address] [id number] [address] [place] [address], [place] [id number] Aug, [facility] [address] [id number] [address] [place] [address], [place] [id number] March, [facility] [address] [id number] [address] [place] [address], [place] [id number] Oct, [facility] [address] [id number] [address] [place] [address], [place] [id number] Oct, [facility] [address] [id number] [address] [place] [address], [place] [id number] Oct, [facility] [address] [id number] [address] [place] [address], [place] [address] Oct, [facility] [address] [id number] [address] [place] [id number] Sep, [facility] [address] [facility] [id number] [address] [place] [id number] Sep, [facility] [address] [facility] [id number] [address] [place] [id number] Sep, [facility] [address] [facility] [id number] [address] [place] [id number] Aug, [facility] [address] [facility] [id number] [address] [place] [id number] Aug, [facility] [address] [facility] [id number] [address] [place] [id number] Aug, [facility] [address] [facility] [facility] [id number] [address] [place] [id number] Jan, IMMUNIZATIONS No Known Immunizations SOCIAL HISTORY [...]
--- OUTSIDE RECORDS SUMMARY | 2020-06-13 16:10 | XMS REPORT ---
Author Author Jah Durant Doctor Organization [facility] Address Unknown Phone Unavailable Care Team Providers Care Family Support Worker Name Role Phone Migration, Doctor Unavailable Unavailable PROBLEMS Type Condition ICD9-CM Code [id number] Code Onset Dates Condition S tatus SNOMED Code Problem Hypothyroid E03.9 Active 09609972 Problem Neuropathy G62.9 Active 839589066 Problem Mixed hyperlipidemia E78.2 Active 495438617 Problem Overactive bladder N32.81 Active 2 16811394 Problem Irritable bowel syndrome with diarrhea K58.0 Active 496027019 Problem Gastroesophageal reflux disease with esophagitis K 21.0 Active 046184993 Problem Type 2 diabetes mellitus with hyperglycemia E11.65 Active 02097045 Problem alf current use of insulin Z79.4 Active 443513564 Problem Current non-adherence to medical treatment Z91.19 Active 4242028 Problem Recurrent major depressive disorder, in partial remission F33.41 Active 20384036 Problem Chronic fatigue R53.82 Active 8422 9001 Problem 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 Active 858659407 Problem Pulmonary emphysema, unspecified emphysema type J4 3.9 Active 12924200 Problem Thrombocytosis D47.3 Active 49536 09 Problem Acquired hypothyroidism E03.9 Active 737120669 Problem Essential (primary) hypertension I10 Active 48268339 Problem Chronic pain G89.29 Active 3091167 1 Problem Anxiety disorder, unspecified type F41.9 Active 976546012 Problem Major depressive disorder, recurrent episode, moderate F33.1 Active 853601775 Problem Hypertriglyceridemia E78.1 Active 675587886 Problem Gastroparesis K31.84 Active 625973 006 ALLERGIES No Information ENCOUNTERS Encounter Location Date Diagnosis [facility] [address] [facility] [id number] [address] [place] [address] May, [facility] [address] [facility] [id number] [address] [place] [address] May, Chronic pain G89.29 [facility] [address] [facility] [id number] [address] [place] [address] Apr, Poison maryam dermatitis L23.7 [facility] [address] [facility] [id number] [address] [place] [address] Apr, Chronic pain G89.29 [facility] [address] [facility] [id number] [address] [place] [address] March, Type 2 diabetes mellitus wit h hyperglycemia E11.65 [facility] [address] [facility] [id number] [address] [place] [address] March, Chronic pain G89.29 [facility] [address] [facility] [id number] [address] [place] [address] March, [address] [address] Feb, [facility] [address] [facility] [id number] [address] [place] [address] Feb, Other chronic pain G89.29 an d Chronic pain G89.29 [facility] [address] [facility] [id number] [address] [place] [address] Jan, Mixed hyperlipidemia E78.2 [facility] [address] [facility] [id number] [address] [place] [address] Jan, Chronic pain G89.29 [facility] [address] [facility] [id number] [address] [place] [address] Jan, Type 2 diabetes mellitus wit h hyperglycemia E11.65 ; Mixed hyperlipidemia E78.2 ; 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.4 ; Acquired hypothyroidism E03.9 and Essential (primary) hypertension I10 [facility] [address] [facility] [id number] [address] [place] [address] Dec, Chronic pain G89.29 [facility] [address] [facility] [id number] [address] [place] [address] Nov, Chronic pain G89.29 [facility] [address] [place] [id number] [address] [place] [address] Nov, [facility] [address] [place] [id number] [address] [place] [address] Oct, Chronic pain G89.29 [facility] [address] [place] [id number] [address] [place] [address] Oct, [facility] [address] [place] [id number] [place] [address] Sep, [facility] [address] [place] [id number] [place] [address] Sep, Type 2 diabetes mellitus wit h hyperglycemia E11.65 [place] [address] [address] Sep, Chronic pain G89.29 [place] [address] [address] Sep, [facility] [address] [address] Sep, Type 2 diabetes mellitus wit h hyperglycemia E11.65 ; Irritable bowel syndrome with diarrhea K58.0 ; Gastroparesis K31.84 ; 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 and Dermatitis L30.9 [facility] [address] [place] [id number] [address] [place] [address] Aug, Chronic pain G89.29 [place] [address] [place] [id number] [address] [place] [address] Jul, Chronic pain G89.29 [place] [address] [place] [id number] [place] [address] Jun, Type 2 diabetes mellitus wit h hyperglycemia E11.65 ; Neuropathy G62.9 ; Recurrent major depressive disorder, in partial remission F33.41 ; Chronic pain G89.29 and Hypertriglyceridemia E78.1 [facility] [address] [place] [id number] [address] [place] [address] Jun, Hypothyroid E03.9 [facility] [address] [id number] [address] [place] [address] 16 Jun, 2018 Major depressive disorder, r ecurrent episode, moderate F33.1 and Anxiety disorder, unspecified type F41.9 [facility] [address] [id number] [address] [place] [address] Jun, [facility] [address] [facility] [id number] [address] [place] [address] Jun, Type 2 diabetes mellitus wit h hyperglycemia E11.65 ; 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.4 ; Recurrent major depressive disorder, in partial remission F33.41 ; Hypothyroid E03.9 ; Candidal dermatitis B37.2 and Weakness generalized R53.1 [place] [address] [facility] [id number] [address] [place] [address] May, [place] [address] [facility] [id number] [address] [place] [address] May, [facility] [address] [id number] [address] [place] [address] May, [place] [address] [facility] [id number] [address] [place] [address] May, Generalized abdominal pain R 10.84 and Candidal dermatitis B37.2 [facility] [address] [facility] [id number] [address] [place] [address] May, [place] [address] [facility] [id number] [address] [place] [address] May, [place] [address] [facility] [id number] [address] [place] [address] May, Nodular radiologic density R 93.8 ; Weight loss, unintentional R63.4 and Pulmonary emphysema, unspecified emphysema type J43.9 [facility] [address] [facility] [id number] [address] [place] [address] May, Chronic pain G89.29 [place] [address] [id number] [address] [place] [address] 09 May, 2018 Syncope and collapse R55 ; C hronic fatigue R53.[address] lung screening R91.8 [facility] [address] [id number] [address] [place] [address] May, [facility] [address] [facility] [id number] [address] [place] [address] Apr, Chronic fatigue R53.82 ; Abn ormal chest CT R93.8 ; Elevated erythrocyte sedimentation rate R70.0 ; Hypothyroid E03.9 and Recurrent major depressive disorder, in partial remission F33.41 [facility] [address] [id number] [address] [place] [address] Apr, Hypothyroid E03.9 [facility] [address] [facility] [id number] [address] [place] [address] Apr, Depression F32.9 [facility] [address] [facility] [id number] [address] [place] [address] Apr, [facility] [address] [facility] [id number] [address] [place] [address] March, [facility] [address] [facility] [id number] [address] [place] [address] March, Hypothyroid E03.9 [facility] [address] [facility] [id number] [address] [place] [address] March, Diabetes mellitus E11.9 and Hypothyroid E03.9 [facility] [address] [id number] [address] [place] [address] March, Diabetes mellitus E11.9 [facility] [address] [facility] [id number] [address] [place] [address] March, Hypothyroid E03.9 and Elevat ed liver enzymes R74.8 [facility] [address] [facility] [id number] [address] [place] [address] March, Type 2 diabetes mellitus wit h [...] disorder, in partial remission F33.41 [place] [address] [facility] [id number] [address] [place] [address] Feb, Chronic pain G89.29 [place] [address] [facility] [id number] [address] [place] [address] Feb, Type 2 diabetes mellitus wit h hyperglycemia E11.65 and Skin lesion of scalp L98.9 [place] [address] [facility] [id number] [address] [place] [address] Feb, [place] [address] [place] [id number] [address] [place] [address] Jan, Type 2 diabetes mellitus wit h hyperglycemia E11.65 ; 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.4 ; Essential (primary) hypertension I10 ; Pulmonary emphysema, unspecified emphysema type J43.9 ; Chronic pain G89.29 ; Controlled substance agreement signed Z79.899 ; Hypothyroid E03.9 ; Neuropathy G62.9 ; Gastroesophageal reflux disease with esophagitis K21.0 ; Overactive bladder N32.81 ; Depression F32.9 and Irritable bowel syndrome with diarrhea K58.0 [place] [address] [facility] [id number] [address] [place] [address] Jan, [place] [address] [facility] [id number] [address] [place] [address] Jan, Controlled substance agreeme nt signed Z79.899 [place] [address] [facility] [id number] [address] [place] [address] Dec, Type 2 diabetes mellitus wit h hyperglycemia E11.65 ; Controlled substance agreement signed Z79.899 ; 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.4 ; Essential (primary) hypertension I10 ; Hypothyroid E03.9 ; Neuropathy G62.9 ; Depression F32.9 ; Mixed hyperlipidemia E78.2 ; Irritable bowel syndrome with diarrhea K58.0 ; Gastroesophageal reflux disease with esophagitis K21.0 ; Thrombocytosis D47.3 ; Current non-adherence to medical treatment Z91.19 and Overweight (BMI 25.0-29.9) E66.3 [place] [address] [facility] [id number] [address] [place] [address] 02 Dec, 2017 Controlled substance agreeme nt signed Z79.899 [place] [address] [facility] [id number] [address] [place] [address] Nov, Type 2 diabetes mellitus wit h hyperglycemia E11.65 and Current non- adherence to medical treatment Z91.19 [place] [address] [facility] [id number] [address] [place] [address] Nov, [place] [address] [place] [id number] [address] [place] [address] Nov, Chronic pain G89.29 [place] [address] [facility] [id number] [address] [place] [address] Nov, [place] [address] [place] [id number] [address] [place] [address] Nov, Hypothyroid E03.9 [place] [address] [facility] [id number] [address] [place] [address] Nov, Hypothyroid E03.9 [place] [address] [facility] [id number] [address] [place] [address] Nov, Pulmonary emphysema, unspeci fied emphysema type J43.9 and Irritable bowel syndrome with diarrhea K58.0 [place] [address] [facility] [id number] [address] [place] [address] Oct, [place] [address] [facility] [id number] [address] [place] [address] Oct, [place] [address] [place] [id number] [address] [place] [address] Oct, [place] [address] [facility] [id number] [address] [place] [address] Oct, [place] [address] [facility] [id number] [address] [place] [address] Oct, Chronic pain G89.29 [place] [address] [place] [id number] [address] [place] [address] Oct, Diabetes mellitus E11.9 ; De pression F32.9 ; Mixed hyperlipidemia E78.2 ; Hypotension, unspecified hypotension type I95.9 ; Pulmonary emphysema, unspecified emphysema type J43.9 and Weight loss, unintentional R63.4 [place] [address] [facility] [id number] [address] [place] [address] Oct, Chronic pain G89.29 [place] [address] [place] [id number] [address] [place] [address] Sep, Chronic pain G89.29 [place] [id number] [place] [address] Sep, Hypothyroid E03.9 and Diabet es mellitus E11.9 [place] [id number] [address] [place] [address] Aug, Type 2 diabetes mellitus wit h hyperglycemia E11.65 ; alf current use of insulin Z79.4 ; Essential (primary) hypertension I10 ; Hypothyroid E03.9 ; Neuropathy G62.9 ; Chronic pain G89.29 ; Mixed hy perlipidemia E78.2 and Encounter for immunization Z23 [place] [address] [facility] [id number] [address] [place] [address] Aug, Chronic pain G89.29 [place] [address] [place] [id number] [address] [place] [address] Aug, Overactive bladder N32.81 ; Diabetes mellitus E11.9 and Chronic pain G89.29 [place] [address] [place] [id number] [address] [place] [address] Jul, [facility] [address] [facility] [id number] [address] [place] [address] Jun, [facility] [address] [facility] [id number] [address] [place] [address] Jun, [facility] [address] [facility] [id number] [address] [place] [address] Jun, Hypothyroid E03.9 [facility] [address] [facility] [id number] [address] [place] [address] Jun, Diabetes mellitus E11.9 ; Hy pothyroid E03.9 ; Neuropathy G62.9 ; Chronic pain G89.29 and Neck mass R22.1 [facility] [address] [facility] [id number] [address] [place] [address] Apr, [facility] [address] [facility] [id number] [address] [place] [address] Apr, Acute cystitis without hemat uria N30.00 [facility] [address] [facility] [id number] [address] [place] [address] March, [facility] [address] [facility] [id number] [address] [place] [address] March, [facility] [address] [place] [id number] [address] [place] [address] March, Near syncope R55 [facility] [address] [facility] [id number] [address] [place] [address] Feb, [facility] [address] [facility] [id number] [address] [place] [address] Feb, Chronic pain G89.29 [facility] [address] [facility] [id number] [address] [place] [address] Feb, [facility] [address] [facility] [id number] [address] [place] [address] Feb, [facility] [address] [facility] [id number] [address] [place] [address] Jan, Chronic pain G89.29 [facility] [address] [facility] [id number] [address] [place] [address] Jan, [facility] [address] [place] [id number] [address] [place] [address] 16 Jan, 2017 [facility] [address] [address] 14 Jan, 2017 Diabetes mellitus E11.9 ; Hy pothyroid E03.9 ; GERD (gastroesophageal reflux disease) K21.9 ; Insomnia G47.00 ; Functional 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 ; Neuropathy G62.9 ; Depression F32.9 ; Chronic pain G89.29 ; Irritable bowel syndrome with diarrhea K58.0 ; Overactive bladder N32.81 ; Mixed hyperlipidemia E78.2 and Bronchitis J40 [facility] [address] [place] [id number] [address] [place] [address] Dec, [facility] [address] [place] [id number] [address] [place] [address] Dec, [facility] [address] [place] [id number] [address] [place] [address] Dec, [facility] [address] [place] [id number] [address] [place] [address] Dec, [facility] [address] [place] [id number] [address] [place] [address] Dec, Chronic pain G89.29 [facility] [address] [facility] [id number] [address] [place] [address] Dec, [facility] [address] [address] Dec, [facility] [address] [place] [id number] [address] [place] [address] 17 Dec, 2016 Type 2 diabetes mellitus wit h foot ulcer E11.621 [facility] [address] [place] [id number] [address] [place] [address] 17 Dec, 2016 Type 2 diabetes mellitus wit h foot ulcer E11.621 [place] [address] [address] 14 Dec, 2016 HTN (hypertension) I10 ; Dep ression F32.9 ; Type 2 diabetes mellitus with foot ulcer E11.621 ; Functional 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 ; Irritable bowel syndrome with diarrhea K58.0 ; Chronic pain G89.29 ; Insomnia G47.00 ; Overactive bladder N32.81 ; Mixed hyperlipidemia E78.2 ; Gastroesophageal reflux disease with esophagitis K21.0 and Acquired hypothyroidism E03.9 [place] [address] [address] Nov, [place] [address] [address] Oct, [place] [address] [address] Oct, [place] [address] [address] Oct, [place] [address] [address] Sep, Functional 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 ; HTN (hypertension) I10 ; Diabetes mellitus E11.9 ; Depression F32.9 ; Overactive bladder N32.81 ; Mixed hyperlipidemia E78.2 ; Gastroesophageal reflux disease without esophagitis K21.9 ; Chronic pain G89.29 ; Insomnia G47.00 and Acquired hypothyroidism E03.9 [place] [address] [address] Sep, [place] [address] [address] Aug, Encounter for immunization Z 23 [place] [address] [address] 06 Aug, 2016 [place] [address] [address] Jul, [place] [address] [address] Jun, Type 2 diabetes mellitus wit hout complications E11.9 ; HTN (hypertension) I10 ; Hypothyroid E03.9 ; Neuropathy G62.9 ; Depression F32.9 ; Chronic pain G89.29 ; GERD (gastroesophageal reflux disease) K21.9 ; Insomnia G47.00 ; Overactive bladder N32.81 ; Mixed hyperlipidemia E78.2 ; Diarrhea of infectious origin A09 and Environmental allergies Z91.09 [place] [address] [address] Apr, [place] [address] [address] March, Hypothyroidism, unspecified E03.9 and Mixed hyperlipidemia E78.2 [place] [address] [address] March, Diabetes mellitus E11.9 ; HT N (hypertension) I10 ; Hypothyroid E03.9 ; Depression F32.9 ; Overactive bladder N32.81 ; Other chronic pain G89.29 ; Lumbago with sciatica, unspecified side M54.40 ; Environmental allergies Z91.09 and Gastroesophageal reflux disease, esophagitis presence not specified K21.9 [place] [address] [address] March, [place] [address] [address] Jan, HTN (hypertension) I10 ; Hyp othyroid E03.9 ; Neuropathy G62.9 ; Diabetes mellitus E11.9 ; Chronic pain G89.29 ; GERD (gastroesophageal reflux disease) K21.9 ; Overactive bladder N32.81 and Depression F32.9 [place] [address] [address] Dec, Ear pain, left H92.02 ; HTN (hypertension) I10 ; Hypothyroid E03.9 ; Neuropathy G62.9 ; Diabetes mellitus E11.9 ; Depression F32.9 ; GERD (gastroesophageal reflux disease) K21.9 ; Insomnia G47.00 and Overactive bladder N32.81 [facility] [address] [facility] [id number] [address] [place] [address] Nov, Overactive bladder N32.81 an d Chronic pain G89.29 [place] [id number] [place] [address] Nov, Kidney failure N19 [place] [address] [place] [id number] [address] [place] [address] Nov, [place] [address] [place] [id number] [address] [place] [address] Nov, [place] [address] [place] [id number] [address] [place] [address] Nov, Diabetes mellitus E11.9 ; De pression F32.9 ; Chronic pain G89.29 ; GERD (gastroesophageal reflux disease) K21.9 ; Insomnia G47.00 ; HTN (hypertension) I10 ; Hypothyroid E03.9 ; COPD (chronic obstructive pulmonary disease) J44.9 ; Bladder incontinence R32 and Incontinence R32 [place] [address] [place] [id number] [address] [place] [address] Sep, Type 2 diabetes mellitus wit h foot ulcer E11.621 and Chromosomal abnormality, 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 [place] [address] [facility] [id number] [address] [place] [address] Sep, [place] [address] [place] [id number] [address] [place] [address] Aug, [place] [address] [place] [id number] [address] [place] [id number] Aug, [place] [address] [place] [id number] [address] [place] [address] Aug, HTN (hypertension) I10 ; Enc ounter for immunization Z23 ; Hypothyroid E03.9 ; Neuropathy G62.9 ; Diabetes mellitus E11.9 ; Depression F32.9 ; Chronic pain G89.29 ; GERD (gastroesophageal reflux disease) K21.9 ; Insomnia G47.00 and COPD (chronic obstructive pulmonary disease) J44.9 [place] [address] [id number] Jun, [place] [address] [address] Jun, [place] [address] [id number] May, Essential hypertension, ivis gn 401.1 ; Unspecified hypothyroidism 244.9 ; Insomnia, unspecified 780.52 ; Shortness of breath 786.05 ; Depression 311 ; COPD (chronic obstructive pulmonary disease) 496 ; GERD (gastroesophageal reflux disease) 530.81 and Diabetes 1.5, 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 [address] May, [place] [address] [id number] May, [address] [address] May, Shortness of breath 786.05 ; Essential hypertension, benign 401.1 ; Diabetes mellitus 250.00 ; Hyperlipidemia 272.4 ; Hypothyroid 244.9 ; Insomnia 780.52 and Cough 786.[address] [address] Apr, [address] [address] March, Shortness of breath 786.05 ; Nausea with vomiting 787.01 ; Essential hypertension, benign 401.1 ; Diabetes mellitus 250.00 ; Hyperlipidemia 272.4 [address] Hyp[address]roid 244[address] [address] Feb, [facility] [address] [id number] [address] [place] [address], [place] [address] Feb, [facility] [address] [id number] [address] [place] [address], [place] [address] Jan, [facility] [address] [id number] [address] [place] [address], [place] [address] Jan, [facility] [address] [id number] [address] [place] [address], [place] [address] Jan, [facility] [address] [id number] [address] [place] [address], [place] [address] Jan, [facility] [address] [id number] [address] [place] [address], [place] [address] Jan, [facility] [address] [id number] [address] [place] [address], [place] [address] Jan, [facility] [address] [id number] [address] [place] [address], [place] [address] Jan, [facility] [address] [id number] [address] [place] [place] [address], [place] [address] Jan, [facility] [address] [id number] [address] [place] [address], [place] [address] Jan, [facility] [address] [id number] [address] [place] [address], [place] [address] Jan, [facility] [address] [id number] [address] [place] [address], [place] [address] Dec, [facility] [address] [id number] [address] [place] [address], [place] [address] Dec, [facility] [address] [id number] [address] [place] [address], [place] [address] Dec, [facility] [address] [id number] [address] [place] [address], [place] [address] Dec, [facility] [address] [id number] [address] [place] [address], [place] [address] Dec, 2014 [facility] [address] [id number] [address] [place] [address], [place] [address] Dec, 2014 [facility] [address] [id number] [address] [place] [address], [place] [address] Dec, 2014 [facility] [address] [id number] [address] [place] [address], [place] [address] Dec, 2014 [facility] [address] [id number] [address] [place] [address], [place] [address] Dec, 2014 [facility] [address] [id number] [address] [place] [address], [place] [address] Dec, 2014 [facility] [address] [id number] [address] [place] [address], [place] [address] Oct, [facility] [address] [id number] [address] [place] [address], [place] [address] Oct, [facility] [address] [id number] [address] [place] [address], [place] [address] Oct, [facility] [address] [id number] [address] [place] [address], [place] [address] Oct, [facility] [address] [id number] [address] [place] [address], [place] [address] Oct, [facility] [address] [id number] [address] [place] [address], [place] [address] Oct, [facility] [address] [id number] [address] [place] [address], [place] [address] Oct, [facility] [address] [id number] [address] [place] [address], [place] [address] Oct, [facility] [address] [id number] [address] [place] [address], [place] [address] Oct, [facility] [address] [id number] [address] [place] [address], [place] [address] Oct, [facility] [address] [id number] [address] [place] [address], [place] [address] Oct, [facility] [address] [id number] [address] [place] [address], [place] [address] Oct, [facility] [address] [id number] [address] [place] [address], [place] [address] Oct, [facility] [address] [id number] [address] [place] [address], [place] [address] Oct, [facility] [address] [id number] [address] [place] [address], [place] [address] Sep, [facility] [address] [id number] [address] [place] [address], [place] [address] Sep, [facility] [address] [id number] [address] [place] [address], [place] [address] Sep, [facility] [address] [id number] [address] [place] [address], [place] [address] Sep, [facility] [address] [id number] [address] [place] [address], [place] [address] Sep, [facility] [address] [id number] [address] [place] [address], [place] [address] Sep, [facility] [address] [id number] [address] [place] [address], [place] [address] Sep, [facility] [address] [id number] [address] [place] [address], [place] [address] Sep, [facility] [address] [id number] [address] [place] [address], [place] [address] Sep, [facility] [address] [id number] [address] [place] [address], [place] [address] Aug, [facility] [address] [id number] [address] [place] [address], [place] [address] Aug, [facility] [address] [id number] [address] [place] [address], [place] [address] 17 Aug, 2014 [facility] [address] [id number] [address] [place] [address], [place] [address] 17 Aug, 2014 [facility] [address] [id number] [address] [place] [address], [place] [address] 16 Aug, 2014 [facility] [address] [id number] [address] [place] [address], [place] [address] Aug, [facility] [address] [id number] [address] [place] [address], [place] [address] Aug, [facility] [address] [id number] [address] [place] [address], [place] [address] Aug, [facility] [address] [id number] [address] [place] [address], [place] [address] Aug, [facility] [address] [id number] [address] [place] [address], [place] [address] 29 Jul, 2013 [facility] [address] [id number] [address] [place] [address], [place] [address] 29 Jul, 2013 [facility] [address] [id number] [address] [place] [address], [place] [address] 25 Jul, 2013 [facility] [address] [id number] [address] [place] [address], [place] [address] 25 Jul, 2013 [facility] [address] [id number] [address] [place] [address], [place] [address] 25 Jul, 2013 [facility] [address] [id number] [address] [place] [address], [place] [address] 25 Jul, 2013 [facility] [address] [id number] [address] [place] [address], [place] [address] 25 Jul, 2013 [facility] [address] [id number] [address] [place] [address], [place] [address] 25 Jul, 2013 [facility] [address] [id number] [address] [place] [address], [place] [address] 02 Jul, 2013 [facility] [address] [id number] [facility] [place] [address] Jul, [facility] [address] [id number] [facility] [place] [address] Jun, [facility] [address] [id number] [facility] [place] [address] Jun, [facility] [address] [id number] [address] [place] [address], [place] [address] Jun, [facility] [address] [id number] [address] [place] [address], [place] [address] Jun, [facility] [address] [id number] [address] [place] [address], [place] [address] Jun, [facility] [address] [id number] [address] [place] [address], [place] [address] Jun, [facility] [address] [id number] [address] [place] [address], [place] [address] Jun, [facility] [address] [id number] [address] [place] [address], [place] [address] Jun, [facility] [address] [id number] [address] [place] [address], [place] [address] Jun, [facility] [address] [id number] [address] [place] [address], [place] [address] Jun, [facility] [address] [id number] [address] [place] [address], [place] [address] Jun, [facility] [address] [id number] [address] [place] [address], [place] [address] Jun, [facility] [address] [id number] [address] [place] [address], [place] [address] May, [facility] [address] [id number] [address] [place] [address], [place] [address] May, [facility] [address] [id number] [address] [place] [address], [place] [address] May, [facility] [address] [id number] [address] [place] [address], [place] [address] May, [facility] [address] [id number] [address] [place] [address], [place] [address] May, [facility] [address] [id number] [address] [place] [address], [place] [address] May, [facility] [address] [id number] [address] [place] [address], [place] [address] March, [facility] [address] [id number] [address] [place] [address], [place] [address] March, [facility] [address] [id number] [address] [place] [address], [place] [address] March, [facility] [address] [id number] [address] [place] [address], [place] [address] March, [facility] [address] [id number] [address] [place] [address], [place] [address] March, [facility] [address] [id number] [address] [place] [address], [place] [address] March, [facility] [address] [id number] [address] [place] [address], [place] [address] Feb, [facility] [address] [id number] [address] [place] [address], [place] [address] Feb, [facility] [address] [id number] [address] [place] [address], [place] [address] Feb, [facility] [address] [id number] [address] [place] [address], [place] [address] Feb, [facility] [address] [id number] [address] [place] [address], [place] [address] Jan, [facility] [address] [id number] [address] [place] [address], [place] [address] Jan, [facility] [address] [id number] [address] [place] [address], [place] [address] Jan, [facility] [address] [id number] [address] [place] [address], [place] [address] Jan, [facility] [address] [id number] [address] [place] [address], [place] [address] Jan, [facility] [address] [id number] [address] [place] [address], [place] [address] Jan, [facility] [address] [id number] [address] [place] [address], [place] [address] Jan, [facility] [address] [id number] [address] [place] [address], [place] [address] Jan, [facility] [address] [id number] [address] [place] [address], [place] [address] Jan, [facility] [address] [id number] [address] [place] [address], [place] [address] Jan, [facility] [address] [id number] [address] [place] [address], [place] [address] Jan, [facility] [address] [id number] [address] [place] [address], [place] [address] Jan, [facility] [address] [id number] [address] [place] [address], [place] [address] Dec, [facility] [address] [id number] [address] [place] [address], [place] [address] Dec, [facility] [address] [id number] [address] [place] [address], [place] [address] Dec, [facility] [address] [id number] [address] [place] [address], [place] [address] Dec, [facility] [address] [id number] [address] [place] [address], [place] [address] Dec, [facility] [address] [id number] [address] [place] [address], [place] [address] Dec, [facility] [address] [id number] [address] [place] [address], [place] [address] Nov, [facility] [address] [id number] [address] [place] [address], [place] [address] Nov, [facility] [address] [id number] [address] [place] [address], [place] [address] Oct, [facility] [address] [id number] [address] [place] [address], [place] [address] Oct, [facility] [address] [id number] [address] [place] [address], [place] [address] Oct, [facility] [address] [id number] [address] [place] [address], [place] [address] Oct, [facility] [address] [id number] [address] [place] [address], [place] [address] Oct, [facility] [address] [id number] [address] [place] [address], [place] [address] Oct, [facility] [address] [id number] [address] [place] [address], [place] [address] Sep, [facility] [address] [id number] [address] [place] [address], [place] [address] Sep, [facility] [address] [id number] [address] [place] [address], [place] [address] Sep, [facility] [address] [id number] [address] [place] [address] Sep, [facility] [address] [id number] [address] [place] [address], [place] [address] Aug, [facility] [address] [id number] [address] [place] [address], [place] [address] Aug, [facility] [address] [id number] [address] [place] [address], [place] [address] Aug, [facility] [address] [id number] [address] [place] [address] 17 Jul, 2013 [facility] [address] [id number] [address] [place] [address], [place] [address] 14 Jul, 2013 [facility] [address] [id number] [address] [place] [address], [place] [address] 04 Jul, 2013 [facility] [address] [id number] [address] [place] [address], [place] [address] Jun, [facility] [address] [id number] [address] [place] [address], [place] [address] Jun, [facility] [address] [id number] [address] [place] [address], [place] [address] Jun, [facility] [address] [id number] [address] [place] [address], [place] [address] Apr, [facility] [address] [id number] [address] [place] [address], [place] [address] Apr, [facility] [address] [id number] [address] [place] [address], [place] [address] March, [facility] [address] [id number] [address] [place] [address], [place] [address] March, [facility] [address] [id number] [address] [place] [address], [place] [address] March, [facility] [address] [id number] [address] [place] [address], [place] [address] March, [facility] [address] [id number] [address] [place] [address], [place] [address] Feb, [facility] [address] [id number] [address] [place] [address], [place] [address] Jan, [facility] [address] [id number] [address] [place] [address], [place] [address] Dec, [facility] [address] [id number] [address] [place] [address], [place] [address] Dec, [facility] [address] [id number] [address] [place] [address], [place] [address] 07 Dec, 2012 [facility] [address] [id number] [address] [place] [address], [place] [address] Nov, [facility] [address] [id number] [address] [place] [address], [place] [address] Oct, [facility] [address] [id number] [address] [place] [address], [place] [address] Oct, [facility] [address] [id number] [address] [place] [address], [place] [address] Sep, [facility] [address] [id number] [address] [place] [address], [place] [address] Sep, [facility] [address] [id number] [address] [place] [address], [place] [address] Sep, [facility] [address] [id number] [address] [place] [address], [place] [address] Sep, [facility] [address] [id number] [address] [place] [address], [place] [address] Sep, [facility] [address] [id number] [address] [place] [address], [place] [address] Sep, [facility] [address] [id number] [address] [place] [address], [place] [address] Sep, [facility] [address] [id number] [address] [place] [address], [place] [address] Aug, [facility] [address] [id number] [address] [place] [address], [place] [address] 16 Aug, 2012 [facility] [address] [id number] [address] [place] [address], [place] [address] Aug, [facility] [address] [id number] [address] [place] [address], [place] [address] Aug, [facility] [address] [id number] [address] [place] [address], [place] [address] Aug, [facility] [address] [id number] [address] [place] [address], [place] [address] Aug, [facility] [address] [id number] [address] [place] [address], [place] [address] Aug, [facility] [address] [id number] [address] [place] [address], [place] [address] Aug, [facility] [address] [id number] [address] [place] [address], [place] [address] Jul, [facility] [address] [id number] [address] [place] [address], [place] [address] Jul, [facility] [address] [id number] [address] [place] [address], [place] [address] Jun, [facility] [address] [id number] [address] [place] [address], [place] [address] May, [facility] [address] [id number] [address] [place] [address], [place] [address] Apr, [facility] [address] [id number] [address] [place] [address], [place] [address] Apr, [facility] [address] [id number] [address] [place] [address], [place] [address] Apr, [facility] [address] [id number] [address] [place] [address], [place] [address] March, [facility] [address] [id number] [address] [place] [address], [place] [address] March, [facility] [address] [id number] [address] [place] [address], [place] [address] March, [facility] [address] [id number] [address] [place] [address], [place] [address] March, [facility] [address] [id number] [address] [place] [address], [place] [address] March, [facility] [address] [id number] [address] [place] [address], [place] [address] March, [facility] [address] [id number] [address] [place] [address], [place] [address] March, [facility] [address] [id number] [address] [place] [address], [place] [address] Jan, [facility] [address] [id number] [address] [place] [address], [place] [address] Jan, [facility] [address] [id number] [address] [place] [address], [place] [address] Jan, [facility] [address] [id number] [address] [place] [address], [place] [address] Jan, [facility] [address] [id number] [address] [place] [address], [place] [address] Jan, [facility] [address] [id number] [address] [place] [address], [place] [address] Dec, [facility] [address] [id number] [address] [place] [address], [place] [address] Dec, [facility] [address] [id number] [address] [place] [address], [place] [address] Nov, [facility] [address] [id number] [address] [place] [address], [place] [address] Nov, [facility] [address] [id number] [address] [place] [address], [place] [address] Nov, [facility] [address] [id number] [address] [place] [address], [place] [address] Nov, [facility] [address] [id number] [address] [place] [address], [place] [address] Oct, [facility] [address] [id number] [address] [place] [address], [place] [address] Oct, [facility] [address] [id number] [address] [place] [address], [place] [address] 14 Sep, 2011 [facility] [address] [id number] [address] [place] [address], [place] [address] 10 Sep, 2011 [facility] [address] [id number] [address] [place] [address], [place] [address] 10 Sep, 2011 [facility] [address] [id number] [address] [place] [address], [place] [address] 11 May, 2011 [facility] [address] [id number] [address] [place] [address], [place] [address] 20 Nov, 2010 [facility] [address] [id number] [address] [place] [address], [place] [address] 29 Oct, 2010 [facility] [address] [id number] [address] [place] [address], [place] [address] 14 Oct, 2010 [facility] [address] [id number] [address] [place] [address], [place] [address] 08 Oct, 2010 [facility] [address] [id number] [address] [place] [address], [place] [address] 15 Sep, 2010 [facility] [address] [id number] [address] [place] [address], [place] [address] Sep, [facility] [address] [id number] [address] [place] [address], [place] [address] Aug, [facility] [address] [id number] [address] [place] [address], [place] [address] March, [facility] [address] [id number] [address] [place] [address], [place] [address] Oct, [facility] [address] [id number] [address] [place] [address], [place] [address] Oct, [facility] [address] [id number] [address] [place] [address], [place] [address] Oct, [facility] [address] [id number] [address] [place] [address], [place] [address] Oct, [facility] [address] [id number] [address] [place] [address] Sep, [facility] [address] [id number] [address] [place] [id number] Sep, [facility] [address] [id number] [address] [place] [address] Sep, [facility] [address] [facility] [id number] [address] [place] [address] Aug, [facility] [address] [facility] [id number] [address] [place] [address] Aug, [facility] [address] [facility] [id number] [address] [place] [address] Aug, [facility] [address] [facility] [id number] [address] [place] [address] Jan, IMMUNIZATIONS No Known Immunizations SOCIAL HISTORY Never Assessed REASON FOR VISIT PLAN OF CARE VITAL SIGNS Height 69 in 2015-01-14 Weight 214.4 lbs 2015-01-14 Temperature 97.5 degrees Fahrenheit 2015-01-14 Heart Rate 88 bpm 2015-01-14 Respiratory Rate 20 2015-01-14 Blood pressure systolic 132 mmHg 2015-01-14 Blood pressure diastolic 84 mmHg 2015-01-14 MEDICATIONS Unknown Medications RESULTS No Results PROCEDURES Procedure Date Ordered Result Body Site ASSAY THYROID STIM HORMONE January 14, 2015 GLYCATED HEMOGLOBIN TEST January 14, 2015 MICROALBUMIN, SEMIQUANT January 14, 2015 MICROALBUMIN, QUANTITATIVE January 14, 2015 LIPID PANEL January 14, 2015 COMPREHEN METABOLIC PANEL January 14, 2015 VENIPUNCT, ROUTINE* January 14, 2015 INSTRUCTIONS MEDICATIONS ADMINISTERED No Known Medications MEDICAL [...]
--- OUTSIDE RECORDS SUMMARY | 2020-06-13 16:11 | XMS REPORT ---
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 [employer] Name Role Phone Migration, Doctor Unavailable Unavailable PROBLEMS Type Condition ICD9-CM Code [id number] Code Onset Dates Condition S tatus SNOMED Code Problem Hypothyroid E03.9 Active 56478059 Problem Neuropathy G62.9 Active 947855995 Problem Mixed hyperlipidemia E78.2 Active 858320138 Problem Overactive bladder N32.81 Active 2 44824038 Problem Irritable bowel syndrome with diarrhea K58.0 Active 392525160 Problem Gastroesophageal reflux disease with esophagitis K 21.0 Active 631510820 Problem Type 2 diabetes mellitus with hyperglycemia E11.65 Active 88321215 Problem jail current use of insulin Z79.4 Active 440902298 Problem Current non-adherence to medical treatment Z91.19 Active 4863170 Problem Recurrent major depressive disorder, in partial remission F33.41 Active 05963645 Problem Chronic fatigue R53.82 Active 8422 9001 Problem 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 Active 737114742 Problem Pulmonary emphysema, unspecified emphysema type J4 3.9 Active 20261464 Problem Thrombocytosis D47.3 Active 11574 09 Problem Acquired hypothyroidism E03.9 Active 896235953 Problem Essential (primary) hypertension I10 Active 74550074 Problem Chronic pain G89.29 Active 1300568 1 Problem Anxiety disorder, unspecified type F41.9 Active 915434364 Problem Major depressive disorder, recurrent episode, moderate F33.1 Active 967605955 Problem Hypertriglyceridemia E78.1 Active 464222106 Problem Gastroparesis K31.84 Active 753903 006 ALLERGIES No Information ENCOUNTERS Encounter Location Date Diagnosis [facility] [address] [facility] [id number] [address] [place] [address] May, Chronic pain G89.29 [facility] [address] [facility] [id number] [address] [place] [address] Apr, Poison maryam dermatitis L23.7 [facility] [address] [id number] [address] [place] [address] Apr, Chronic pain G89.29 [facility] [address] [facility] [id number] [address] [place] [address] March, Type 2 diabetes mellitus wit h hyperglycemia E11.65 [facility] [address] [id number] [address] [place] [address] March, Chronic pain G89.29 [facility] [address] [facility] [id number] [address] [place] [address] March, [address] [address] Feb, [facility] [address] [facility] [id number] [address] [place] [address] Feb, Other chronic pain G89.29 an d Chronic pain G89.29 [facility] [address] [facility] [id number] [address] [place] [address] Jan, Mixed hyperlipidemia E78.2 [facility] [address] [facility] [id number] [address] [place] [address] Jan, Chronic pain G89.29 [facility] [address] [facility] [id number] [address] [place] [address] Jan, Type 2 diabetes mellitus wit h hyperglycemia E11.65 ; Mixed hyperlipidemia E78.2 ; 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 ; Acquired hypothyroidism E03.9 and Essential (primary) hypertension I10 [facility] [address] [id number] [address] [place] [address] Dec, Chronic pain G89.29 [facility] [address] [facility] [id number] [address] [place] [address] Nov, Chronic pain G89.29 [facility] [address] [facility] [id number] [address] [place] [address] Nov, [facility] [address] [address] Oct, Chronic pain G89.29 [facility] [address] [address] Oct, [facility] [address] [place] [id number] [place] [address] Sep, [facility] [address] [address] Sep, Type 2 diabetes mellitus wit h hyperglycemia E11.65 [place] [address] [address] Sep, Chronic pain G89.29 [place] [address] [address] Sep, [place] [address] [address] Sep, Type 2 diabetes mellitus wit h hyperglycemia E11.65 ; Irritable bowel syndrome with diarrhea K58.0 ; Gastroparesis K31.84 ; 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 and Dermatitis L30.9 [place] [address] [address] Aug, Chronic pain G89.29 [place] [address] [address] Jul, Chronic pain G89.29 [place] [address] [address] Jun, Type 2 diabetes mellitus wit h hyperglycemia E11.65 ; Neuropathy G62.9 ; Recurrent major depressive disorder, in partial remission F33.41 ; Chronic pain G89.29 and Hypertriglyceridemia E78.1 [place] [address] [address] Jun, Hypothyroid E03.9 [place] [address] [address] Jun, Major depressive disorder, r ecurrent episode, moderate F33.1 and Anxiety disorder, unspecified type F41.9 [place] [address] [place] [id number] [address] [place] [address] Jun, [place] [address] [facility] [id number] [address] [place] [address] Jun, Type 2 diabetes mellitus wit h hyperglycemia E11.65 ; 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 ; Recurrent major depressive disorder, in partial remission F33.41 ; Hypothyroid E03.9 ; Candidal dermatitis B37.2 and Weakness generalized R53.1 [place] [address] [facility] [id number] [address] [place] [address] May, [place] [address] [facility] [id number] [address] [place] [address] May, [place] [address] [place] [id number] [address] [place] [address] May, [place] [address] [place] [id number] [address] [place] [address] May, Generalized abdominal pain R 10.84 and Candidal dermatitis B37.2 [place] [address] [place] [id number] [address] [place] [address] May, [place] [address] [place] [id number] [address] [place] [address] May, [place] [address] [place] [id number] [address] [place] [address] May, Nodular radiologic density R 93.8 ; Weight loss, unintentional R63.4 and Pulmonary emphysema, unspecified emphysema type J43.9 [place] [address] [facility] [id number] [address] [place] [address] May, Chronic pain G89.29 [place] [address] [place] [id number] [address] [place] [address] May, Syncope and collapse R55 ; C hronic fatigue R53.[address] lung screening R91.8 [facility] [address] [facility] [id number] [address] [place] [address] May, [facility] [address] [facility] [id number] [address] [place] [address] Apr, Chronic fatigue R53.82 ; Abn ormal chest CT R93.8 ; Elevated erythrocyte sedimentation rate R70.0 ; Hypothyroid E03.9 and Recurrent major depressive disorder, in partial remission F33.41 [facility] [address] [facility] [id number] [address] [place] [address] Apr, Hypothyroid E03.9 [place] [address] [facility] [id number] [address] [place] [address] Apr, Depression F32.9 [facility] [address] [facility] [id number] [address] [place] [address] Apr, [place] [address] [facility] [id number] [address] [place] [address] March, [facility] [address] [facility] [id number] [address] [place] [address] March, Hypothyroid E03.9 [facility] [address] [facility] [id number] [address] [place] [address] March, Diabetes mellitus E11.9 and Hypothyroid E03.9 [place] [address] [facility] [id number] [address] [place] [address] March, Diabetes mellitus E11.9 [facility] [address] [facility] [id number] [address] [place] [address] March, Hypothyroid E03.9 and Elevat ed liver enzymes R74.8 [place] [address] [facility] [id number] [address] [place] [address] March, Type 2 diabetes mellitus wit h hyperglycemia E11.65 ; 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 ; Pulmonary emphysema, unspecified emphysema type J43.9 ; Hypothyroid E03.9 ; Neuropathy G62.9 ; Mixed hyperlipidemia E78.2 ; Chronic pain G89.29 ; Gastroesophageal reflux disease with esophagitis K21.0 ; Irritable bowel syndrome with diarrhea K58.0 ; Overactive bladder N32.81 and Recurrent major depressive disorder, in partial remission F33.41 [place] [address] [facility] [id number] [address] [place] [address] Feb, Chronic pain G89.29 [place] [address] [facility] [id number] [address] [place] [address] Feb, Type 2 diabetes mellitus wit h hyperglycemia E11.65 and Skin lesion of scalp L98.[address] [id number] [address] [place] [address] Feb, [place] [address] [facility] [id number] [address] [place] [address] Jan, Type 2 diabetes mellitus wit h hyperglycemia E11.65 ; 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 ; Essential (primary) hypertension I10 ; Pulmonary emphysema, unspecified emphysema type J43.9 ; Chronic pain G89.29 ; Controlled substance agreement signed Z79.899 ; Hypothyroid E03.9 ; Neuropathy G62.9 ; Gastroesophageal reflux disease with esophagitis K21.0 ; Overactive bladder N32.81 ; Depression F32.9 and Irritable bowel syndrome with diarrhea K58.0 [place] [address] [place] [id number] [address] [place] [address] Jan, [place] [address] [facility] [id number] [address] [place] [address] Jan, Controlled substance agreeme nt signed Z79.899 [place] [address] [facility] [id number] [address] [place] [address] Dec, Type 2 diabetes mellitus wit h hyperglycemia E11.65 ; Controlled substance agreement signed Z79.899 ; 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 ; Essential (primary) hypertension I10 ; Hypothyroid E03.9 ; Neuropathy G62.9 ; Depression F32.9 ; Mixed hyperlipidemia E78.2 ; Irritable bowel syndrome with diarrhea K58.0 ; Gastroesophageal reflux disease with esophagitis K21.0 ; Thrombocytosis D47.3 ; Current non-adherence to medical treatment Z91.19 and Overweight (BMI 25.0-29.9) E66.3 [place] [id number] [place] [id number] [address] [place] [address] 02 Dec, 2017 Controlled substance agreeme nt signed Z79.899 [place] [address] [place] [id number] [address] [place] [address] Nov, Type 2 diabetes mellitus wit h hyperglycemia E11.65 and Current non- adherence to medical treatment Z91.19 [place] [address] [facility] [id number] [address] [place] [phone] Nov, [place] [address] [place] [id number] [address] [place] [address] Nov, Chronic pain G89.29 [place] [address] [place] [id number] [address] [place] [address] Nov, [place] [address] [place] [id number] [address] [place] [address] Nov, Hypothyroid E03.9 [place] [address] [place] [id number] [address] [place] [address] Nov, Hypothyroid E03.9 [place] [address] [place] [id number] [address] [place] [address] Nov, Pulmonary emphysema, unspeci fied emphysema type J43.9 and Irritable bowel syndrome with diarrhea K58.0 [place] [address] [facility] [id number] [address] [place] [address] Oct, [place] [address] [facility] [id number] [address] [place] [address] Oct, [place] [address] [facility] [id number] [address] [place] [address] Oct, [place] [address] [place] [id number] [address] [place] [address] Oct, [place] [address] [facility] [id number] [address] [place] [address] Oct, Chronic pain G89.29 [place] [address] [place] [id number] [address] [place] [address] Oct, Diabetes mellitus E11.9 ; De pression F32.9 ; Mixed hyperlipidemia E78.2 ; Hypotension, unspecified hypotension type I95.9 ; Pulmonary emphysema, unspecified emphysema type J43.9 and Weight loss, unintentional R63.4 [place] [address] [place] [id number] [address] [place] [address] Oct, Chronic pain G89.29 [place] [address] [place] [id number] [place] [address] Sep, Chronic pain G89.29 [place] [address] [address] Sep, Hypothyroid E03.9 and Diabet es mellitus E11.9 [place] [address] [place] [id number] [address] [place] [address] Aug, Type 2 diabetes mellitus wit h hyperglycemia E11.65 ; jail current use of insulin Z79.4 ; Essential (primary) hypertension I10 ; Hypothyroid E03.9 ; Neuropathy G62.9 ; Chronic pain G89.29 ; Mixed hy perlipidemia E78.2 and Encounter for immunization Z23 [place] [address] [place] [id number] [address] [place] [address] Aug, Chronic pain G89.29 [place] [address] [place] [id number] [address] [place] [address] Aug, Overactive bladder N32.81 ; Diabetes mellitus E11.9 and Chronic pain G89.29 [place] [address] [place] [id number] [address] [place] [address] Jul, [place] [address] [place] [id number] [place] [address] Jun, [facility] [address] [id number] [address] [place] [address] Jun, [facility] [address] [id number] [address] [place] [address] Jun, Hypothyroid E03.9 [facility] [address] [facility] [id number] [address] [place] [address] Jun, Diabetes mellitus E11.9 ; Hy pothyroid E03.9 ; Neuropathy G62.9 ; Chronic pain G89.29 and Neck mass R22.1 [facility] [address] [id number] [address] [place] [address] Apr, [facility] [address] [facility] [id number] [address] [place] [address] Apr, Acute cystitis without hemat uria N30.00 [facility] [address] [facility] [id number] [address] [place] [address] March, [facility] [address] [id number] [address] [place] [address] March, [facility] [address] [facility] [id number] [address] [place] [address] March, Near syncope R55 [facility] [address] [facility] [id number] [address] [place] [address] Feb, [facility] [address] [facility] [id number] [address] [place] [address] Feb, Chronic pain G89.29 [facility] [address] [id number] [address] [place] [address] Feb, [facility] [address] [facility] [id number] [address] [place] [address] Feb, [facility] [address] [facility] [id number] [address] [place] [address] Jan, Chronic pain G89.29 [facility] [address] [place] [id number] [address] [place] [address] Jan, [facility] [address] [address] Jan, [facility] [address] [address] Jan, Diabetes mellitus E11.9 ; Hy pothyroid E03.9 ; GERD (gastroesophageal reflux disease) K21.9 ; Insomnia G47.00 ; Functional 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 ; Neuropathy G62.9 ; Depression F32.9 ; Chronic pain G89.29 ; Irritable bowel syndrome with diarrhea K58.0 ; Overactive bladder N32.81 ; Mixed hyperlipidemia E78.2 and Bronchitis J40 [facility] [address] [address] Dec, [facility] [address] [address] Dec, [facility] [address] [address] Dec, [facility] [address] [address] Dec, [facility] [address] [address] Dec, Chronic pain G89.29 [facility] [address] [address] Dec, [facility] [address] [place] [id number] [address] [place] [address] Dec, [facility] [address] [address] Dec, Type 2 diabetes mellitus wit h foot ulcer E11.621 [facility] [address] [place] [id number] [address] [place] [address] Dec, Type 2 diabetes mellitus wit h foot ulcer E11.621 [place] [address] [place] [id number] [address] [place] [address] 14 Dec, 2016 HTN (hypertension) I10 ; Dep ression F32.9 ; Type 2 diabetes mellitus with foot ulcer E11.621 ; Functional 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 ; Irritable bowel syndrome with diarrhea K58.0 ; Chronic pain G89.29 ; Insomnia G47.00 ; Overactive bladder N32.81 ; Mixed hyperlipidemia E78.2 ; Gastroesophageal reflux disease with esophagitis K21.0 and Acquired hypothyroidism E03.9 [place] [address] [place] [id number] [address] [place] [address] Nov, [place] [address] [place] [id number] [place] [address] Oct, [place] [address] [place] [id number] [place] [address] Oct, [place] [address] [place] [id number] [address] [place] [address] Oct, [place] [address] [place] [id number] [address] [place] [address] Sep, Functional 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 ; HTN (hypertension) I10 ; Diabetes mellitus E11.9 ; Depression F32.9 ; Overactive bladder N32.81 ; Mixed hyperlipidemia E78.2 ; Gastroesophageal reflux disease without esophagitis K21.9 ; Chronic pain G89.29 ; Insomnia G47.00 and Acquired hypothyroidism E03.9 [place] [address] [place] [id number] [address] [place] [address] Sep, [place] [address] [place] [id number] [address] [place] [address] Aug, Encounter for immunization Z 23 [place] [address] [facility] [id number] [address] [place] [address] 06 Aug, 2016 [place] [address] [place] [id number] [address] [place] [address] Jul, [place] [address] [address] Jun, Type 2 diabetes mellitus wit hout complications E11.9 ; HTN (hypertension) I10 ; Hypothyroid E03.9 ; Neuropathy G62.9 ; Depression F32.9 ; Chronic pain G89.29 ; GERD (gastroesophageal reflux disease) K21.9 ; Insomnia G47.00 ; Overactive bladder N32.81 ; Mixed hyperlipidemia E78.2 ; Diarrhea of infectious origin A09 and Environmental allergies Z91.09 [place] [address] [address] Apr, [place] [address] [address] March, Hypothyroidism, unspecified E03.9 and Mixed hyperlipidemia E78.2 [place] [address] [address] March, Diabetes mellitus E11.9 ; HT N (hypertension) I10 ; Hypothyroid E03.9 ; Depression F32.9 ; Overactive bladder N32.81 ; Other chronic pain G89.29 ; Lumbago with sciatica, unspecified side M54.40 ; Environmental allergies Z91.09 and Gastroesophageal reflux disease, esophagitis presence not specified K21.9 [place] [address] [address] March, [place] [address] [address] Jan, HTN (hypertension) I10 ; Hyp othyroid E03.9 ; Neuropathy G62.9 ; Diabetes mellitus E11.9 ; Chronic pain G89.29 ; GERD (gastroesophageal reflux disease) K21.9 ; Overactive bladder N32.81 and Depression F32.9 [place] [address] [address] Dec, Ear pain, left H92.02 ; HTN (hypertension) I10 ; Hypothyroid E03.9 ; Neuropathy G62.9 ; Diabetes mellitus E11.9 ; Depression F32.9 ; GERD (gastroesophageal reflux disease) K21.9 ; Insomnia G47.00 and Overactive bladder N32.81 [place] [address] [facility] [id number] [address] [place] [address] Nov, Overactive bladder N32.81 an d Chronic pain G89.29 [place] [address] [facility] [id number] [address] [place] [address] Nov, Kidney failure N19 [place] [address] [facility] [id number] [address] [place] [address] Nov, [place] [address] [facility] [id number] [address] [place] [address] Nov, [place] [address] [place] [id number] [address] [place] [address] Nov, Diabetes mellitus E11.9 ; De pression F32.9 ; Chronic pain G89.29 ; GERD (gastroesophageal reflux disease) K21.9 ; Insomnia G47.00 ; HTN (hypertension) I10 ; Hypothyroid E03.9 ; COPD (chronic obstructive pulmonary disease) J44.9 ; Bladder incontinence R32 and Incontinence R32 [place] [address] [address] [facility] [id number] [address] [place] [id number] Sep, Type 2 diabetes mellitus wit h foot ulcer E11.621 and Chromosomal abnormality, 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 [place] [address] [address] [place] [id number] [address] [place] [phone] Sep, [place] [address] [address] [facility] [id number] [address] [place] [id number] Aug, [place] [address] [address] [place] [id number] [address] [place] [phone] Aug, [place] [address] [address] [place] [id number] [address] [place] [phone] Aug, HTN (hypertension) I10 ; Enc ounter for immunization Z23 ; Hypothyroid E03.9 ; Neuropathy G62.9 ; Diabetes mellitus E11.9 ; Depression F32.9 ; Chronic pain G89.29 ; GERD (gastroesophageal reflux disease) K21.9 ; Insomnia G47.00 and COPD (chronic obstructive pulmonary disease) J44.9 [facility] [address] [id number] Jun, [facility] [address] [id number] Jun, [facility] [address] [id number] May, Essential hypertension, ivis gn 401.1 ; Unspecified hypothyroidism 244.9 ; Insomnia, unspecified 780.52 ; Shortness of breath 786.05 ; Depression 311 ; COPD (chronic obstructive pulmonary disease) 496 ; GERD (gastroesophageal reflux disease) 530.81 and Diabetes 1.5, 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 [place] [address] [id number] May, [address] [id number] May, [place] [address] [id number] May, Shortness of breath 786.05 ; Essential hypertension, benign 401.1 ; Diabetes mellitus 250.00 ; Hyperlipidemia 272.4 ; Hypothyroid 244.9 ; Insomnia 780.52 and Cough 786.2 [place] [address] [address] Apr, [place] [address] [address] March, Shortness of breath 786.05 ; Nausea with vomiting 787.01 ; Essential hypertension, benign 401.1 ; Diabetes mellitus 250.00 ; Hyperlipidemia 272.4 and Hypothyroid 244.9 [facility] [address] [address] Feb, [place] [address] [address] Feb, [facility] [address] [id number] [address] [place] [address], [place] [address] Jan, [facility] [address] [id number] [address] [place] [address], [place] [address] Jan, [facility] [address] [id number] [address] [place] [address], [place] [address] Jan, [facility] [address] [id number] [address] [place] [address], [place] [address] Jan, [facility] [address] [id number] [address] [place] [address], [place] [address] Jan, [facility] [address] [id number] [address] [place] [address], [place] [address] Jan, [facility] [address] [id number] [address] [place] [address], [place] [address] Jan, [facility] [address] [id number] [address] [place] [address], [place] [address] Jan, [facility] [address] [id number] [address] [place] [address], [place] [address] Jan, [facility] [address] [id number] [address] [place] [address], [place] [address] Jan, [facility] [address] [id number] [address] [place] [address], [place] [address] Dec, [facility] [address] [id number] [address] [place] [address], [place] [address] Dec, [facility] [address] [id number] [address] [place] [address], [place] [address] Dec, [facility] [address] [id number] [address] [place] [address], [place] [address] Dec, [facility] [address] [id number] [address] [place] [address], [place] [address] Dec, [facility] [address] [id number] [address] [place] [address], [place] [address] Dec, 2014 [facility] [address] [id number] [address] [place] [address], [place] [address] Dec, 2014 [facility] [address] [id number] [address] [place] [address], [place] [address] Dec, 2014 [facility] [address] [id number] [address] [place] [address], [place] [address] Dec, 2014 [facility] [address] [id number] [address] [place] [address], [place] [address] Dec, 2014 [facility] [address] [id number] [address] [place] [address], [place] [address] Oct, [facility] [address] [id number] [address] [place] [address], [place] [address] Oct, [facility] [address] [id number] [address] [place] [address], [place] [address] Oct, [facility] [address] [id number] [address] [place] [address], [place] [address] Oct, [facility] [address] [id number] [address] [place] [address], [place] [address] Oct, [facility] [address] [id number] [address] [place] [address], [place] [address] Oct, [facility] [address] [id number] [address] [place] [address], [place] [address] Oct, [facility] [address] [id number] [address] [place] [address], [place] [address] Oct, [facility] [address] [id number] [address] [place] [address], [place] [address] Oct, [facility] [address] [id number] [address] [place] [address], [place] [address] Oct, [facility] [address] [id number] [address] [place] [address], [place] [address] Oct, [facility] [address] [id number] [address] [place] [address], [place] [address] Oct, [facility] [address] [id number] [address] [place] [address], [place] [address] Oct, [facility] [address] [id number] [address] [place] [address], [place] [address] Oct, [facility] [address] [id number] [address] [place] [address], [place] [address] Sep, [facility] [address] [id number] [address] [place] [address], [place] [address] Sep, [facility] [address] [id number] [address] [place] [address], [place] [address] Sep, [facility] [address] [id number] [address] [place] [address], [place] [address] Sep, [facility] [address] [id number] [address] [place] [address], [place] [address] Sep, [facility] [address] [id number] [address] [place] [address], [place] [address] Sep, [facility] [address] [id number] [address] [place] [address], [place] [address] Sep, [facility] [address] [id number] [address] [place] [address], [place] [address] Sep, [facility] [address] [id number] [address] [place] [address], [place] [address] Sep, [facility] [address] [id number] [address] [place] [address], [place] [address] Aug, [facility] [address] [id number] [address] [place] [address], [place] [address] Aug, [facility] [address] [id number] [address] [place] [address], [place] [address] Aug, [facility] [address] [id number] [address] [place] [address], [place] [address] 17 Aug, 2014 [facility] [address] [id number] [address] [place] [address], [place] [address] 16 Aug, 2014 [facility] [address] [id number] [address] [place] [address], [place] [address] Aug, [facility] [address] [id number] [address] [place] [address], [place] [address] Aug, [facility] [address] [id number] [address] [place] [address], [place] [address] Aug, [facility] [address] [id number] [address] [place] [address], [place] [address] Aug, [facility] [address] [id number] [address] [place] [address], [place] [address] 29 Jul, 2013 [facility] [address] [id number] [address] [place] [address], [place] [address] 29 Jul, 2013 [facility] [address] [id number] [address] [place] [address], [place] [address] 25 Jul, 2013 [facility] [address] [id number] [address] [place] [address], [place] [address] 25 Jul, 2013 [facility] [address] [id number] [address] [place] [address], [place] [address] 25 Jul, 2013 [facility] [address] [id number] [address] [place] [address], [place] [address] 25 Jul, 2013 [facility] [address] [id number] [address] [place] [address], [place] [address] 25 Jul, 2013 [facility] [address] [id number] [address] [place] [address], [place] [address] 25 Jul, 2013 [facility] [address] [id number] [address] [place] [address], [place] [address] Jul, 2013 [facility] [address] [id number] [address] [place] [address], [place] [address] 02 Jul, 2013 [facility] [address] [id number] [facility] [place] [address] Jun, [facility] [address] [id number] [facility] [place] [address] Jun, [facility] [address] [id number] [facility] [place] [address] Jun, [facility] [address] [id number] [facility] [place] [address] Jun, [facility] [address] [id number] [facility] [place] [address] Jun, [facility] [address] [id number] [address] [place] [address], [place] [address] Jun, [facility] [address] [id number] [address] [place] [address], [place] [address] Jun, [facility] [address] [id number] [address] [place] [address], [place] [address] Jun, [facility] [address] [id number] [address] [place] [address], [place] [address] Jun, [facility] [address] [id number] [address] [place] [address], [place] [address] Jun, [facility] [address] [id number] [address] [place] [address], [place] [address] Jun, [facility] [address] [id number] [address] [place] [address], [place] [address] Jun, [facility] [address] [id number] [address] [place] [address], [place] [address] May, [facility] [address] [id number] [address] [place] [address], [place] [address] May, [facility] [address] [id number] [address] [place] [address], [place] [address] May, [facility] [address] [id number] [address] [place] [address], [place] [address] May, [facility] [address] [id number] [address] [place] [address], [place] [address] May, [facility] [address] [id number] [address] [place] [address], [place] [address] May, [facility] [address] [id number] [address] [place] [address], [place] [address] March, [facility] [address] [id number] [address] [place] [address], [place] [address] March, [facility] [address] [id number] [address] [place] [address], [place] [address] March, [facility] [address] [id number] [address] [place] [address], [place] [address] March, [facility] [address] [id number] [address] [place] [address], [place] [address] March, [facility] [address] [id number] [address] [place] [address], [place] [address] March, [facility] [address] [id number] [address] [place] [address], [place] [address] Feb, [facility] [address] [id number] [address] [place] [address], [place] [address] Feb, [facility] [address] [id number] [address] [place] [address], [place] [address] Feb, [facility] [address] [id number] [address] [place] [address], [place] [address] Feb, [facility] [address] [id number] [address] [place] [address], [place] [address] Jan, [facility] [address] [id number] [address] [place] [address], [place] [address] Jan, [facility] [address] [id number] [address] [place] [address], [place] [address] Jan, [facility] [address] [id number] [address] [place] [address], [place] [address] Jan, [facility] [address] [id number] [address] [place] [address], [place] [address] Jan, [facility] [address] [id number] [address] [place] [address], [place] [address] Jan, [facility] [address] [id number] [address] [place] [address], [place] [address] Jan, [facility] [address] [id number] [address] [place] [address], [place] [address] Jan, [facility] [address] [id number] [address] [place] [address], [place] [address] Jan, [facility] [address] [id number] [address] [place] [address], [place] [address] Jan, [facility] [address] [id number] [address] [place] [address], [place] [address] Jan, [facility] [address] [id number] [address] [place] [address], [place] [address] Jan, [facility] [address] [id number] [address] [place] [address], [place] [address] Dec, [facility] [address] [id number] [address] [place] [address], [place] [address] Dec, [facility] [address] [id number] [address] [place] [address], [place] [address] Dec, [facility] [address] [id number] [address] [place] [address], [place] [address] Dec, [facility] [address] [id number] [address] [place] [address], [place] [address] Dec, [facility] [address] [id number] [address] [place] [address], [place] [address] Dec, [facility] [address] [id number] [address] [place] [address], [place] [address] Nov, [facility] [address] [id number] [address] [place] [address], [place] [address] Nov, [facility] [address] [id number] [address] [place] [address], [place] [address] Oct, [facility] [address] [id number] [address] [place] [address], [place] [address] Oct, [facility] [address] [id number] [address] [place] [address], [place] [address] Oct, [facility] [address] [id number] [address] [place] [address], [place] [address] Oct, [facility] [address] [id number] [address] [place] [address], [place] [address] Oct, [facility] [address] [id number] [address] [place] [address], [place] [address] Oct, [facility] [address] [id number] [address] [place] [address], [place] [address] Sep, [facility] [address] [id number] [address] [place] [address], [place] [address] Sep, [facility] [address] [id number] [address] [place] [address], [place] [address] Sep, [facility] [address] [id number] [address] [place] [address], [place] [address] Sep, [facility] [address] [id number] [address] [place] [address], [place] [address] Aug, [facility] [address] [id number] [address] [place] [address], [place] [address] Aug, [facility] [address] [id number] [address] [place] [address], [place] [address] Aug, [facility] [address] [id number] [address] [place] [address], [place] [address] Jul, [facility] [address] [id number] [address] [place] [address], [place] [address] 14 Jul, 2013 [facility] [address] [id number] [address] [place] [address], [place] [address] Jul, [facility] [address] [id number] [address] [place] [address], [place] [address] Jun, [facility] [address] [id number] [address] [place] [address], [place] [address] Jun, [facility] [address] [id number] [address] [place] [address], [place] [address] Jun, [facility] [address] [id number] [address] [place] [address], [place] [address] Apr, [facility] [address] [id number] [address] [place] [address], [place] [address] Apr, [facility] [address] [id number] [address] [place] [address], [place] [address] March, [facility] [address] [id number] [address] [place] [address], [place] [address] March, [facility] [address] [id number] [address] [place] [address], [place] [address] March, [facility] [address] [id number] [address] [place] [address], [place] [address] March, [facility] [address] [id number] [address] [place] [address], [place] [address] Feb, [facility] [address] [id number] [address] [place] [address], [place] [address] Jan, [facility] [address] [id number] [address] [place] [address], [place] [address] Dec, [facility] [address] [id number] [address] [place] [address], [place] [address] Dec, [facility] [address] [id number] [address] [place] [address], [place] [address] Dec, [facility] [address] [id number] [address] [place] [address], [place] [address] Nov, [facility] [address] [id number] [address] [place] [address], [place] [address] Oct, [facility] [address] [id number] [address] [place] [address], [place] [address] Oct, [facility] [address] [id number] [address] [place] [address], [place] [address] Sep, [facility] [address] [id number] [address] [place] [address], [place] [address] Sep, [facility] [address] [id number] [address] [place] [address], [place] [address] Sep, [facility] [address] [id number] [address] [place] [address], [place] [address] Sep, [facility] [address] [id number] [address] [place] [address], [place] [address] Sep, [facility] [address] [id number] [address] [place] [address], [place] [address] Sep, [facility] [address] [id number] [address] [place] [address], [place] [address] Sep, [facility] [address] [id number] [address] [place] [address], [place] [address] Aug, [facility] [address] [id number] [address] [place] [address], [place] [address] Aug, [facility] [address] [id number] [address] [place] [address], [place] [address] Aug, [facility] [address] [id number] [address] [place] [address], [place] [address] Aug, [facility] [address] [id number] [address] [place] [address], [place] [address] Aug, [facility] [address] [id number] [address] [place] [address] [address] Aug, [facility] [address] [id number] [address] [place] [address], [place] [address] Aug, [facility] [address] [id number] [address] [place] [address], [place] [address] Aug, [facility] [address] [id number] [address] [place] [address], [place] [address] Jul, [facility] [address] [id number] [address] [place] [address], [place] [address] Jul, [facility] [address] [id number] [address] [place] [address], [place] [address] Jun, [facility] [address] [id number] [address] [place] [address], [place] [address] May, [facility] [address] [id number] [address] [place] [address], [place] [address] Apr, [facility] [address] [id number] [address] [place] [address], [place] [address] Apr, [facility] [address] [id number] [address] [place] [address], [place] [address] Apr, [facility] [address] [id number] [address] [place] [address], [place] [address] March, [facility] [address] [id number] [address] [place] [address], [place] [address] March, [facility] [address] [id number] [address] [place] [address], [place] [address] March, [facility] [address] [id number] [address] [place] [address], [place] [address] March, [facility] [address] [id number] [address] [place] [address], [place] [address] March, [facility] [address] [id number] [address] [place] [address], [place] [address] March, [facility] [address] [id number] [address] [place] [address], [place] [address] March, [facility] [address] [id number] [address] [place] [address], [place] [address] Jan, [facility] [address] [id number] [address] [place] [address], [place] [address] Jan, [facility] [address] [id number] [address] [place] [address], [place] [address] Jan, [facility] [address] [id number] [address] [place] [address], [place] [address] 13 Jan, 2012 [facility] [address] [id number] [address] [place] [address], [place] [address] Jan, [facility] [address] [id number] [address] [place] [address], [place] [address] 08 Dec, 2011 [facility] [address] [id number] [address] [place] [address], [place] [address] Dec, [facility] [address] [id number] [address] [place] [address], [place] [address] Nov, [facility] [address] [id number] [address] [place] [address], [place] [address] Nov, [facility] [address] [id number] [address] [place] [address], [place] [address] Nov, [facility] [address] [id number] [address] [place] [address], [place] [address] Nov, [facility] [address] [id number] [address] [place] [address], [place] [address] Oct, [facility] [address] [id number] [address] [place] [address], [place] [address] Oct, [facility] [address] [id number] [address] [place] [address], [place] [address] 14 Sep, 2011 [facility] [address] [id number] [address] [place] [address], [place] [address] 10 Sep, 2011 [facility] [address] [id number] [address] [place] [address], [place] [address] 10 Sep, 2011 [facility] [address] [id number] [address] [place] [address], [place] [address] 11 May, 2011 [facility] [address] [id number] [address] [place] [address], [place] [address] Nov, [facility] [address] [id number] [address] [place] [address], [place] [address] 29 Oct, 2010 [facility] [address] [id number] [address] [place] [address], [place] [address] 14 Oct, 2010 [facility] [address] [id number] [address] [place] [address], [place] [address] 08 Oct, 2010 [facility] [address] [id number] [address] [place] [address], [place] [address] 15 Sep, 2010 [facility] [address] [id number] [address] [place] [address], [place] [address] Sep, [facility] [address] [id number] [address] [place] [address], [place] [address] Aug, [facility] [address] [id number] [address] [place] [address], [place] [address] March, [facility] [address] [id number] [address] [place] [address], [place] [address] 17 Oct, 2009 [facility] [address] [id number] [address] [place] [phone] 17 Oct, 2009 [facility] [address] [id number] [address] [place] [address], [place] [address] Oct, [facility] [address] [id number] [address] [place] [address], [place] [address] Oct, [facility] [address] [id number] [address] [place] [phone] 12 Sep, 2009 [facility] [address] [id number] [address] [place] [phone] Sep, [facility] [address] [facility] [id number] [address] [place] [phone] Sep, [facility] [address] [facility] [id number] [address] [place] [phone] Aug, [facility] [address] [facility] [id number] [address] [place] [phone] Aug, [facility] [address] [facility] [id number] [address] [place] [phone] Aug, [facility] [address] [facility] [id number] [address] [place] [phone] Jan, IMMUNIZATIONS No Known Immunizations SOCIAL HISTORY [...]
--- OUTSIDE RECORDS SUMMARY | 2020-06-13 16:11 | XMS REPORT ---
Author Author Jah Durant Doctor Organization [facility] Address Unknown Phone Unavailable Care Team Providers Care Ehs Manager Name Role Phone Migration, Doctor Unavailable Unavailable PROBLEMS Type Condition ICD9-CM Code LQN92-CD Code Onset Dates Condition S tatus SNOMED Code Problem Hypothyroid E03.9 Active 53096864 Problem Neuropathy G62.9 Active 943684321 Problem Mixed hyperlipidemia E78.2 Active 366259170 Problem Overactive bladder N32.81 Active 2 83331460 Problem Irritable bowel syndrome with diarrhea K58.0 Active 973653020 Problem Gastroesophageal reflux disease with esophagitis K 21.0 Active 219566456 Problem Type 2 diabetes mellitus with hyperglycemia E11.65 Active 33247598 Problem USP current use of insulin Z79.4 Active 716631855 Problem Current non-adherence to medical treatment Z91.19 Active 1297952 Problem Recurrent major depressive disorder, in partial remission F33.41 Active 54888688 Problem Chronic fatigue R53.82 Active 8422 9001 Problem 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 Active 238523144 Problem Pulmonary emphysema, unspecified emphysema type J4 3.9 Active 45712842 Problem Thrombocytosis D47.3 Active 34681 09 Problem Acquired hypothyroidism E03.9 Active 802533527 Problem Essential (primary) hypertension I10 Active 14649168 Problem Chronic pain G89.29 Active 0773455 1 Problem Anxiety disorder, unspecified type F41.9 Active 401573172 Problem Major depressive disorder, recurrent episode, moderate F33.1 Active 264026768 Problem Hypertriglyceridemia E78.1 Active 491364046 Problem Gastroparesis K31.84 Active 453171 006 ALLERGIES No Information ENCOUNTERS Encounter Location Date Diagnosis [facility] [address] [facility] [id number] [address] [place] [address] May, Chronic pain G89.29 [facility] [address] [facility] [id number] [address] [place] [address] Apr, Poison maryam dermatitis L23.7 [facility] [address] [id number] [address] [place] [address] Apr, Chronic pain G89.29 [facility] [address] [facility] [id number] [address] [place] [address] March, Type 2 diabetes mellitus wit h hyperglycemia E11.65 [facility] [address] [id number] [address] [place] [address] March, Chronic pain G89.29 [facility] [address] [facility] [id number] [address] [place] [id number] March, [address] [address] Feb, [facility] [address] [facility] [id number] [address] [place] [address] Feb, Other chronic pain G89.29 an d Chronic pain G89.29 [facility] [address] [facility] [id number] [address] [place] [address] Jan, Mixed hyperlipidemia E78.2 [facility] [address] [facility] [id number] [address] [place] [address] Jan, Chronic pain G89.29 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 [address] [id number] [address] [place] [address] Dec, Chronic pain G89.29 [facility] [address] [facility] [id number] [address] [place] [address] Nov, Chronic pain G89.29 [facility] [address] [facility] [id number] [address] [place] [phone] Nov, [facility] [address] [address] Oct, Chronic pain G89.29 [facility] [address] [address] Oct, [facility] [address] [place] [id number] [place] [address] Sep, 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 and Dermatitis L30.9 [place] [address] [address] Aug, Chronic pain G89.29 [place] [address] [address] Jul, Chronic pain G89.29 [place] [address] [address] Jun, Type 2 diabetes mellitus wit h hyperglycemia E11.65 ; Neuropathy G62.9 ; Recurrent major depressive disorder, in partial remission F33.41 ; Chronic pain G89.29 and Hypertriglyceridemia E78.1 [place] [address] [address] Jun, Hypothyroid E03.9 [place] [address] [address] Jun, Major depressive disorder, r ecurrent episode, moderate F33.1 and Anxiety disorder, unspecified type F41.9 [place] [address] [place] [id number] [address] [place] [address] Jun, [place] [address] [facility] [id number] [address] [place] [address] Jun, Type 2 diabetes mellitus wit h hyperglycemia E11.65 ; 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 ; Recurrent major depressive disorder, in partial remission F33.41 ; Hypothyroid E03.9 ; Candidal dermatitis B37.2 and Weakness generalized R53.1 [place] [address] [facility] [id number] [address] [place] [address] May, [place] [address] [facility] [id number] [address] [place] [phone] May, [place] [address] [place] [id number] [address] [place] [address] May, [place] [address] [place] [id number] [address] [place] [address] May, Generalized abdominal pain R 10.84 and Candidal dermatitis B37.2 [place] [address] [place] [id number] [address] [place] [address] May, [place] [address] [place] [id number] [address] [place] [address] May, [place] [address] [place] [id number] [address] [place] [address] May, Nodular radiologic density R 93.8 ; Weight loss, unintentional R63.4 and Pulmonary emphysema, unspecified emphysema type J43.9 [place] [address] [facility] [id number] [address] [place] [address] May, Chronic pain G89.29 [place] [address] [place] [id number] [address] [place] [address] May, Syncope and collapse R55 ; C hronic fatigue R53.[address] lung screening R91.8 [facility] [address] [facility] [id number] [address] [place] [phone] May, [facility] [address] [facility] [id number] [address] [place] [address] Apr, Chronic fatigue R53.82 ; Abn ormal chest CT R93.8 ; Elevated erythrocyte sedimentation rate R70.0 ; Hypothyroid E03.9 and Recurrent major depressive disorder, in partial remission F33.41 [facility] [address] [facility] [id number] [address] [place] [address] Apr, Hypothyroid E03.9 [place] [address] [facility] [id number] [address] [place] [phone] Apr, Depression F32.9 [facility] [address] [facility] [id number] [address] [place] [address] Apr, [place] [address] [facility] [id number] [address] [place] [id number] March, [facility] [address] [facility] [id number] [address] [place] [address] March, Hypothyroid E03.9 [facility] [address] [facility] [id number] [address] [place] [address] March, Diabetes mellitus E11.9 and Hypothyroid E03.9 [place] [address] [facility] [id number] [address] [place] [address] March, Diabetes mellitus E11.9 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 ; Pulmonary emphysema, unspecified emphysema type J43.9 ; Hypothyroid E03.9 ; Neuropathy G62.9 ; Mixed hyperlipidemia E78.2 ; Chronic pain G89.29 ; Gastroesophageal reflux disease with esophagitis K21.0 ; Irritable bowel syndrome with diarrhea K58.0 ; Overactive bladder N32.81 and Recurrent major depressive disorder, in partial remission F33.41 [place] [address] [facility] [id number] [address] [place] [address] Feb, Chronic pain G89.29 [place] [address] [facility] [id number] [address] [place] [address] Feb, Type 2 diabetes mellitus wit h hyperglycemia E11.65 and Skin lesion of scalp L98.[address] [id number] [address] [place] [address] Feb, [place] [address] [facility] [id number] [address] [place] [address] Jan, Type 2 diabetes mellitus wit h hyperglycemia E11.65 ; 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 ; Essential (primary) hypertension I10 ; Pulmonary emphysema, unspecified emphysema type J43.9 ; Chronic pain G89.29 ; Controlled substance agreement signed Z79.899 ; Hypothyroid E03.9 ; Neuropathy G62.9 ; Gastroesophageal reflux disease with esophagitis K21.0 ; Overactive bladder N32.81 ; Depression F32.9 and Irritable bowel syndrome with diarrhea K58.0 [place] [address] [place] [id number] [address] [place] [address] Jan, [place] [address] [facility] [id number] [address] [place] [address] Jan, Controlled substance agreeme nt signed Z79.899 [place] [address] [facility] [id number] [address] [place] [address] Dec, Type 2 diabetes mellitus wit h hyperglycemia E11.65 ; Controlled substance agreement signed Z79.899 ; 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 ; Essential (primary) hypertension I10 ; Hypothyroid E03.9 ; Neuropathy G62.9 ; Depression F32.9 ; Mixed hyperlipidemia E78.2 ; Irritable bowel syndrome with diarrhea K58.0 ; Gastroesophageal reflux disease with esophagitis K21.0 ; Thrombocytosis D47.3 ; Current non-adherence to medical treatment Z91.19 and Overweight (BMI 25.0-29.9) E66.3 [place] [id number] [place] [id number] [address] [place] [id number] 02 Dec, 2017 Controlled substance agreeme nt signed Z79.899 [place] [address] [place] [id number] [address] [place] [address] Nov, Type 2 diabetes mellitus wit h hyperglycemia E11.65 and Current non- adherence to medical treatment Z91.19 [place] [address] [facility] [id number] [address] [place] [address] Nov, [place] [address] [place] [id number] [address] [place] [phone] Nov, Chronic pain G89.29 [place] [address] [place] [id number] [address] [place] [address] Nov, [place] [address] [place] [id number] [address] [place] [address] Nov, Hypothyroid E03.9 [place] [address] [place] [id number] [address] [place] [phone] Nov, Hypothyroid E03.9 [place] [address] [place] [id number] [address] [place] [address] Nov, Pulmonary emphysema, unspeci fied emphysema type J43.9 and Irritable bowel syndrome with diarrhea K58.0 [place] [address] [facility] [id number] [address] [place] [address] Oct, [place] [address] [facility] [id number] [address] [place] [phone] Oct, [place] [address] [facility] [id number] [address] [place] [address] Oct, [place] [address] [place] [id number] [address] [place] [address] Oct, [place] [address] [facility] [id number] [address] [place] [address] Oct, Chronic pain G89.29 [place] [address] [place] [id number] [address] [place] [address] Oct, Diabetes mellitus E11.9 ; De pression F32.9 ; Mixed hyperlipidemia E78.2 ; Hypotension, unspecified hypotension type I95.9 ; Pulmonary emphysema, unspecified emphysema type J43.9 and Weight loss, unintentional R63.4 [place] [address] [place] [id number] [address] [place] [address] Oct, Chronic pain G89.29 [place] [address] [place] [id number] [place] [address] Sep, Chronic pain G89.29 [place] [address] [address] Sep, Hypothyroid E03.9 and Diabet es mellitus E11.9 [place] [address] [place] [id number] [address] [place] [address] Aug, Type 2 diabetes mellitus wit h hyperglycemia E11.65 ; USP current use of insulin Z79.4 ; Essential (primary) hypertension I10 ; Hypothyroid E03.9 ; Neuropathy G62.9 ; Chronic pain G89.29 ; Mixed hy perlipidemia E78.2 and Encounter for immunization Z23 [place] [address] [place] [id number] [address] [place] [address] Aug, Chronic pain G89.29 [place] [address] [place] [id number] [address] [place] [id number] Aug, Overactive bladder N32.81 ; Diabetes mellitus E11.9 and Chronic pain G89.29 [place] [address] [place] [id number] [address] [place] [phone] Jul, [place] [address] [place] [id number] [place] [address] Jun, [facility] [address] [id number] [address] [place] [address] Jun, [facility] [address] [id number] [address] [place] [address] Jun, Hypothyroid E03.9 [facility] [address] [facility] [id number] [address] [place] [address] Jun, Diabetes mellitus E11.9 ; Hy pothyroid E03.9 ; Neuropathy G62.9 ; Chronic pain G89.29 and Neck mass R22.1 [facility] [address] [id number] [address] [place] [id number] Apr, [facility] [address] [facility] [id number] [address] [place] [address] Apr, Acute cystitis without hemat uria N30.00 [facility] [address] [facility] [id number] [address] [place] [phone] March, [facility] [address] [id number] [address] [place] [phone] March, [facility] [address] [facility] [id number] [address] [place] [phone] March, Near syncope R55 [facility] [address] [facility] [id number] [address] [place] [address] Feb, [facility] [address] [facility] [id number] [address] [place] [address] Feb, Chronic pain G89.29 [facility] [address] [id number] [address] [place] [id number] Feb, [facility] [address] [facility] [id number] [address] [place] [address] Feb, [facility] [address] [facility] [id number] [address] [place] [address] Jan, Chronic pain G89.29 [facility] [address] [place] [id number] [address] [place] [address] Jan, [facility] [address] [address] Jan, [facility] [address] [address] Jan, Diabetes mellitus E11.9 ; Hy pothyroid E03.9 ; GERD (gastroesophageal reflux disease) K21.9 ; Insomnia G47.00 ; Functional 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 ; Neuropathy G62.9 ; Depression F32.9 ; Chronic pain G89.29 ; Irritable bowel syndrome with diarrhea K58.0 ; Overactive bladder N32.81 ; Mixed hyperlipidemia E78[address] [facility] [address] [address] Dec, [facility] [address] [address] Dec, [facility] [address] [address] Dec, [facility] [address] [address] Dec, [facility] [address] [address] Dec, Chronic pain G89.29 [facility] [address] [address] Dec, [facility] [address] [place] [id number] [address] [place] [address] Dec, [facility] [address] [address] Dec, Type 2 diabetes mellitus wit h foot ulcer E11.621 [facility] [address] [place] [id number] [address] [place] [address] Dec, Type 2 diabetes mellitus wit h foot ulcer E11.621 [place] [address] [place] [id number] [address] [place] [address] 14 Dec, 2016 HTN (hypertension) I10 ; Dep ression F32.9 ; Type 2 diabetes mellitus with foot ulcer E11.621 ; Functional 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 ; Irritable bowel syndrome with diarrhea K58.0 ; Chronic pain G89.29 ; Insomnia G47.00 ; Overactive bladder N32.81 ; Mixed hyperlipidemia E78.2 ; Gastroesophageal reflux disease with esophagitis K21.0 and Acquired hypothyroidism E03.9 [place] [address] [place] [id number] [address] [place] [address] Nov, [place] [address] [place] [id number] [place] [phone] Oct, [place] [address] [place] [id number] [place] [address] Oct, [place] [address] [place] [id number] [address] [place] [phone] Oct, [place] [address] [place] [id number] [address] [place] [address] Sep, Functional 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 ; HTN (hypertension) I10 ; Diabetes mellitus E11.9 ; Depression F32.9 ; Overactive bladder N32.81 ; Mixed hyperlipidemia E78.2 ; Gastroesophageal reflux disease without esophagitis K21.9 ; Chronic pain G89.29 ; Insomnia G47.00 and Acquired hypothyroidism E03.9 [place] [address] [place] [id number] [address] [place] [address] Sep, [place] [address] [place] [id number] [address] [place] [address] Aug, Encounter for immunization Z 23 [place] [address] [facility] [id number] [address] [place] [phone] 06 Aug, 2016 [place] [address] [place] [id number] [address] [place] [address] Jul, [place] [address] [address] Jun, Type 2 diabetes mellitus wit hout complications E11.9 ; HTN (hypertension) I10 ; Hypothyroid E03.9 ; Neuropathy G62.9 ; Depression F32.9 ; Chronic pain G89.29 ; GERD (gastroesophageal reflux disease) K21.9 ; Insomnia G47.00 ; Overactive bladder N32.81 ; Mixed hyperlipidemia E78.2 ; Diarrhea of infectious origin A09 and Environmental allergies Z91.09 [place] [address] [address] Apr, [place] [address] [address] March, Hypothyroidism, unspecified E03.9 and Mixed hyperlipidemia E78.2 [place] [address] [address] March, Diabetes mellitus E11.9 ; HT N (hypertension) I10 ; Hypothyroid E03.9 ; Depression F32.9 ; Overactive bladder N32.81 ; Other chronic pain G89.29 ; Lumbago with sciatica, unspecified side M54.40 ; Environmental allergies Z91.09 and Gastroesophageal reflux disease, esophagitis presence not specified K21.9 [place] [address] [address] March, [place] [address] [address] Jan, HTN (hypertension) I10 ; Hyp othyroid E03.9 ; Neuropathy G62.9 ; Diabetes mellitus E11.9 ; Chronic pain G89.29 ; GERD (gastroesophageal reflux disease) K21.9 ; Overactive bladder N32.81 and Depression F32.9 [place] [address] [address] Dec, Ear pain, left H92.02 ; HTN (hypertension) I10 ; Hypothyroid E03.9 ; Neuropathy G62.9 ; Diabetes mellitus E11.9 ; Depression F32.9 ; GERD (gastroesophageal reflux disease) K21.9 ; Insomnia G47.00 and Overactive bladder N32.81 [place] [id number] [facility] [id number] [address] [place] [address] Nov, Overactive bladder N32.81 an d Chronic pain G89.29 [place] [address] [facility] [id number] [address] [place] [address] Nov, Kidney failure N19 [place] [id number] [facility] [id number] [address] [place] [address] Nov, [place] [address] [facility] [id number] [address] [place] [phone] Nov, [place] [address] [place] [id number] [address] [place] [address] Nov, Diabetes mellitus E11.9 ; De pression F32.9 ; Chronic pain G89.29 ; GERD (gastroesophageal reflux disease) K21.9 ; Insomnia G47.00 ; HTN (hypertension) I10 ; Hypothyroid E03.9 ; COPD (chronic obstructive pulmonary disease) J44.9 ; Bladder incontinence R32 and Incontinence R32 [place] [address] [facility] [id number] [address] [place] [id number] Sep, Type 2 diabetes mellitus wit h foot ulcer E11.621 and Chromosomal abnormality, 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 [place] [address] [place] [id number] [address] [place] [address] Sep, [place] [address] [facility] [id number] [address] [place] [address] Aug, [place] [address] [place] [id number] [address] [place] [address] Aug, [place] [address] [place] [id number] [address] [place] [id number] Aug, HTN (hypertension) I10 ; Enc ounter for immunization Z23 ; Hypothyroid E03.9 ; Neuropathy G62.9 ; Diabetes mellitus E11.9 ; Depression F32.9 ; Chronic pain G89.29 ; GERD (gastroesophageal reflux disease) K21.9 ; Insomnia G47.00 and COPD (chronic obstructive pulmonary disease) J44.9 [facility] [address] [id number] Jun, [facility] [address] [id number] Jun, 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 [place] [address] [id number] May, [address] [id number] May, [place] [address] [address] May, Shortness of breath 786.05 ; Essential hypertension, benign 401.1 ; Diabetes mellitus 250.00 ; Hyperlipidemia 272.4 ; Hypothyroid 244.9 ; Insomnia 780.52 and Cough 786.2 [place] [address] [address] Apr, [place] [address] [address] March, Shortness of breath 786.05 ; Nausea with vomiting 787.01 ; Essential hypertension, benign 401.1 ; Diabetes mellitus 250.00 ; Hyperlipidemia 272.[address] [facility] [address] [address] Feb, [place] [address] [address] Feb, [facility] [address] [id number] [address] [place] [address], [place] [address] Jan, [facility] [address] [id number] [address] [place] [address], [place] [address] Jan, [facility] [address] [id number] [address] [place] [address], [place] [id number] Jan, [facility] [address] [id number] [address] [place] [address], [place] [address] Jan, [facility] [address] [id number] [address] [place] [address], [place] [address] Jan, [facility] [facility] [address] [id number] [address] [place] [address], [place] [address] Jan, [facility] [address] [id number] [address] [place] [address], [place] [address] Jan, [facility] [address] [id number] [address] [place] [address], [place] [address] Jan, [facility] [address] [id number] [address] [place] [address], [place] [address] Jan, [facility] [address] [id number] [address] [place] [address], [place] [address] Jan, [facility] [address] [id number] [address] [place] [address], [place] [address] Dec, [facility] [address] [id number] [address] [place] [address], [place] [address] Dec, [facility] [address] [id number] [address] [place] [address], [place] [address] Dec, [facility] [address] [id number] [address] [place] [address], [place] [address] Dec, [facility] [address] [id number] [address] [place] [address], [place] [address] Dec, [facility] [address] [id number] [address] [place] [address], [place] [address] Dec, 2014 [facility] [address] [id number] [address] [place] [address], [place] [address] Dec, 2014 [facility] [address] [id number] [address] [place] [address], [place] [address] Dec, 2014 [facility] [address] [id number] [address] [place] [address], [place] [address] Dec, 2014 [facility] [address] [id number] [address] [place] [address], [place] [address] Dec, 2014 [facility] [address] [id number] [address] [place] [address], [place] [address] Oct, [facility] [address] [id number] [address] [place] [address], [place] [address] Oct, [facility] [address] [id number] [address] [place] [address], [place] [address] Oct, [facility] [address] [id number] [address] [place] [address], [place] [address] Oct, [facility] [address] [id number] [address] [place] [address], [place] [address] Oct, [facility] [address] [id number] [address] [place] [address], [place] [address] Oct, [facility] [address] [id number] [address] [place] [address], [place] [address] Oct, [facility] [address] [id number] [address] [place] [address], [place] [address] Oct, [facility] [address] [id number] [address] [place] [address], [place] [address] Oct, [facility] [address] [id number] [address] [place] [address], [place] [address] Oct, [facility] [address] [id number] [address] [place] [address], [place] [address] Oct, [facility] [address] [id number] [address] [place] [address], [place] [address] Oct, [facility] [address] [id number] [address] [place] [address], [place] [address] Oct, [facility] [address] [id number] [address] [place] [address], [place] [address] Oct, [facility] [address] [id number] [address] [place] [address], [place] [address] Sep, [facility] [address] [id number] [address] [place] [address], [place] [address] Sep, [facility] [address] [id number] [address] [place] [address], [place] [address] Sep, [facility] [address] [id number] [address] [place] [address], [place] [address] Sep, [facility] [address] [id number] [address] [place] [address], [place] [address] Sep, [facility] [address] [id number] [address] [place] [address], [place] [address] Sep, [facility] [address] [id number] [address] [place] [address], [place] [address] Sep, [facility] [address] [id number] [address] [place] [address], [place] [address] Sep, [facility] [address] [id number] [address] [place] [address], [place] [address] Sep, [facility] [address] [id number] [address] [place] [address], [place] [address] Aug, [facility] [address] [id number] [address] [place] [address], [place] [address] Aug, [facility] [address] [id number] [address] [place] [address], [place] [address] Aug, [facility] [address] [id number] [address] [place] [address], [place] [address] 17 Aug, 2014 [facility] [address] [id number] [address] [place] [address], [place] [address] 16 Aug, 2014 [facility] [address] [id number] [address] [place] [address], [place] [address] Aug, [facility] [address] [id number] [address] [place] [address], [place] [address] Aug, [facility] [address] [id number] [address] [place] [address], [place] [address] Aug, [facility] [address] [id number] [address] [place] [address], [place] [address] Aug, [facility] [address] [id number] [address] [place] [address], [place] [address] 29 Jul, 2013 [facility] [address] [id number] [address] [place] [address], [place] [address] 29 Jul, 2013 [facility] [address] [id number] [address] [place] [address], [place] [address] 25 Jul, 2013 [facility] [address] [id number] [address] [place] [address], [place] [address] 25 Jul, 2013 [facility] [address] [id number] [address] [place] [address], [place] [address] 25 Jul, 2013 [facility] [address] [id number] [address] [place] [address], [place] [address] 25 Jul, 2013 [facility] [address] [id number] [address] [place] [address], [place] [address] 25 Jul, 2013 [facility] [address] [id number] [address] [place] [address], [place] [address] 25 Jul, 2013 [facility] [address] [id number] [address] [place] [address], [place] [address] Jul, 2013 [facility] [address] [id number] [address] [place] [address], [place] [address] 02 Jul, 2013 [facility] [address] [id number] [facility] [place] [address] Jun, [facility] [address] [id number] [facility] [place] [address] Jun, [facility] [address] [id number] [facility] [place] [address] Jun, [facility] [address] [id number] [facility] [place] [address] Jun, [facility] [address] [id number] [facility] [place] [address] Jun, [facility] [address] [id number] [address] [place] [address], [place] [address] Jun, [facility] [address] [id number] [address] [place] [address], [place] [address] Jun, [facility] [address] [id number] [address] [place] [address], [place] [address] Jun, [facility] [address] [id number] [address] [place] [address], [place] [address] Jun, [facility] [address] [id number] [address] [place] [address], [place] [address] Jun, [facility] [address] [id number] [address] [place] [address], [place] [address] Jun, [facility] [address] [id number] [address] [place] [address], [place] [address] Jun, [facility] [address] [id number] [address] [place] [address], [place] [address] May, [facility] [address] [id number] [address] [place] [address], [place] [address] May, [facility] [address] [id number] [address] [place] [address], [place] [address] May, [facility] [address] [id number] [address] [place] [address], [place] [address] May, [facility] [address] [id number] [address] [place] [address], [place] [address] May, [facility] [address] [id number] [address] [place] [address], [place] [address] May, [facility] [address] [id number] [address] [place] [address], [place] [address] March, [facility] [address] [id number] [address] [place] [address], [place] [address] March, [facility] [address] [id number] [address] [place] [address], [place] [address] March, [facility] [address] [id number] [address] [place] [address], [place] [address] March, [facility] [address] [id number] [address] [place] [address], [place] [address] March, [facility] [address] [id number] [address] [place] [address], [place] [address] March, [facility] [address] [id number] [address] [place] [address], [place] [address] Feb, [facility] [address] [id number] [address] [place] [address], [place] [address] Feb, [facility] [address] [id number] [address] [place] [address], [place] [address] Feb, [facility] [address] [id number] [address] [place] [address], [place] [address] Feb, [facility] [address] [id number] [address] [place] [address], [place] [address] Jan, [facility] [address] [id number] [address] [place] [address], [place] [address] Jan, [facility] [address] [id number] [address] [place] [address], [place] [address] Jan, [facility] [address] [id number] [address] [place] [address], [place] [address] Jan, [facility] [address] [id number] [address] [place] [address], [place] [address] Jan, [facility] [address] [id number] [address] [place] [address], [place] [address] Jan, [facility] [address] [id number] [address] [place] [address], [place] [address] Jan, [facility] [address] [id number] [address] [place] [address], [place] [address] Jan, [facility] [address] [id number] [address] [place] [address], [place] [address] Jan, [facility] [address] [id number] [address] [place] [address], [place] [address] Jan, [facility] [address] [id number] [address] [place] [address], [place] [address] Jan, [facility] [address] [id number] [address] [place] [address], [place] [address] Jan, [facility] [address] [id number] [address] [place] [address], [place] [address] Dec, [facility] [address] [id number] [address] [place] [address], [place] [address] Dec, [facility] [address] [id number] [address] [place] [address], [place] [address] Dec, [facility] [address] [id number] [address] [place] [address], [place] [address] Dec, [facility] [address] [id number] [address] [place] [address], [place] [address] Dec, [facility] [address] [id number] [address] [place] [address], [place] [address] Dec, [facility] [address] [id number] [address] [place] [address], [place] [address] Nov, [facility] [address] [id number] [address] [place] [address], [place] [address] Nov, [facility] [address] [id number] [address] [place] [address], [place] [address] Oct, [facility] [address] [id number] [address] [place] [address], [place] [address] Oct, [facility] [address] [id number] [address] [place] [address], [place] [address] Oct, [facility] [address] [id number] [address] [place] [address], [place] [address] Oct, [facility] [address] [id number] [address] [place] [address], [place] [address] Oct, [facility] [address] [id number] [address] [place] [address], [place] [address] Oct, [facility] [address] [id number] [address] [place] [address], [place] [address] Sep, [facility] [address] [id number] [address] [place] [address], [place] [address] Sep, [facility] [address] [id number] [address] [place] [address], [place] [address] Sep, [facility] [address] [id number] [address] [place] [address], [place] [address] Sep, [facility] [address] [id number] [address] [place] [address], [place] [address] Aug, [facility] [address] [id number] [address] [place] [address], [place] [address] Aug, [facility] [address] [id number] [address] [place] [address], [place] [address] Aug, [facility] [address] [id number] [address] [place] [address], [place] [address] Jul, [facility] [address] [id number] [address] [place] [address], [place] [address] 14 Jul, 2013 [facility] [address] [id number] [address] [place] [address], [place] [address] Jul, [facility] [address] [id number] [address] [place] [address], [place] [address] Jun, [facility] [address] [id number] [address] [place] [address], [place] [address] Jun, [facility] [address] [id number] [address] [place] [address], [place] [address] Jun, [facility] [address] [id number] [address] [place] [address], [place] [address] Apr, [facility] [address] [id number] [address] [place] [address], [place] [address] Apr, [facility] [address] [id number] [address] [place] [address], [place] [address] March, [facility] [address] [id number] [address] [place] [address], [place] [address] March, [facility] [address] [id number] [address] [place] [address], [place] [address] March, [facility] [address] [id number] [address] [place] [address], [place] [address] March, [facility] [address] [id number] [address] [place] [address], [place] [address] Feb, [facility] [address] [id number] [address] [place] [address], [place] [address] Jan, [facility] [address] [id number] [address] [place] [address], [place] [address] Dec, [facility] [address] [id number] [address] [place] [address], [place] [address] Dec, [facility] [address] [id number] [address] [place] [address], [place] [address] Dec, [facility] [address] [id number] [address] [place] [address], [place] [address] Nov, [facility] [address] [id number] [address] [place] [address], [place] [address] Oct, [facility] [address] [id number] [address] [place] [address], [place] [address] Oct, [facility] [address] [id number] [address] [place] [address], [place] [address] Sep, [facility] [address] [id number] [address] [place] [address], [place] [address] Sep, [facility] [address] [id number] [address] [place] [address], [place] [address] Sep, [facility] [address] [id number] [address] [place] [address], [place] [address] Sep, [facility] [address] [id number] [address] [place] [address], [place] [address] Sep, [facility] [address] [id number] [address] [place] [address], [place] [address] Sep, [facility] [address] [id number] [address] [place] [address], [place] [address] Sep, [facility] [address] [id number] [address] [place] [address], [place] [address] Aug, [facility] [address] [id number] [address] [place] [address], [place] [address] Aug, [facility] [address] [id number] [address] [place] [address], [place] [address] Aug, [facility] [address] [id number] [address] [place] [address], [place] [address] Aug, [facility] [address] [id number] [address] [place] [address], [place] [address] Aug, [facility] [address] [id number] [address] [place] [address] [address] Aug, [facility] [address] [id number] [address] [place] [address], [place] [address] Aug, [facility] [address] [id number] [address] [place] [address], [place] [address] Aug, [facility] [address] [id number] [address] [place] [address], [place] [address] Jul, [facility] [address] [id number] [address] [place] [address], [place] [address] Jul, [facility] [address] [id number] [address] [place] [address], [place] [address] Jun, [facility] [address] [id number] [address] [place] [address], [place] [address] May, [facility] [address] [id number] [address] [place] [address], [place] [address] Apr, [facility] [address] [id number] [address] [place] [address], [place] [address] Apr, [facility] [address] [id number] [address] [place] [address], [place] [address] Apr, [facility] [address] [id number] [address] [place] [address], [place] [address] March, [facility] [address] [id number] [address] [place] [address], [place] [address] March, [facility] [address] [id number] [address] [place] [address], [place] [address] March, [facility] [address] [id number] [address] [place] [address], [place] [address] March, [facility] [address] [id number] [address] [place] [address], [place] [address] March, [facility] [address] [id number] [address] [place] [address], [place] [address] March, [facility] [address] [id number] [address] [place] [address], [place] [address] March, [facility] [address] [id number] [address] [place] [address], [place] [address] Jan, [facility] [address] [id number] [address] [place] [address], [place] [address] Jan, [facility] [address] [id number] [address] [place] [address], [place] [address] Jan, [facility] [address] [id number] [address] [place] [address], [place] [address] 13 Jan, 2012 [facility] [address] [id number] [address] [place] [address], [place] [address] Jan, [facility] [address] [id number] [address] [place] [address], [place] [address] 08 Dec, 2011 [facility] [address] [id number] [address] [place] [address], [place] [address] Dec, [facility] [address] [id number] [address] [place] [address], [place] [address] Nov, [facility] [address] [id number] [address] [place] [address], [place] [address] Nov, [facility] [address] [id number] [address] [place] [address], [place] [address] Nov, [facility] [address] [id number] [address] [place] [address], [place] [address] Nov, [facility] [address] [id number] [address] [place] [address], [place] [address] Oct, [facility] [address] [id number] [address] [place] [address], [place] [address] Oct, [facility] [address] [id number] [address] [place] [address], [place] [address] 14 Sep, 2011 [facility] [address] [id number] [address] [place] [address], [place] [address] 10 Sep, 2011 [facility] [address] [id number] [address] [place] [address], [place] [address] 10 Sep, 2011 [facility] [address] [id number] [address] [place] [address], [place] [address] 11 May, 2011 [facility] [address] [id number] [address] [place] [address], [place] [address] Nov, [facility] [address] [id number] [address] [place] [address], [place] [address] 29 Oct, 2010 [facility] [address] [id number] [address] [place] [address], [place] [address] 14 Oct, 2010 [facility] [address] [id number] [address] [place] [address], [place] [address] 08 Oct, 2010 [facility] [address] [id number] [address] [place] [address], [place] [address] 15 Sep, 2010 [facility] [address] [id number] [address] [place] [address], [place] [address] Sep, [facility] [address] [id number] [address] [place] [address], [place] [address] Aug, [facility] [address] [id number] [address] [place] [address], [place] [address] March, [facility] [address] [id number] [address] [place] [address], [place] [address] 17 Oct, 2009 [facility] [address] [id number] [address] [place] [address] 17 Oct, 2009 [facility] [address] [id number] [address] [place] [address], [place] [address] Oct, [facility] [address] [id number] [address] [place] [address], [place] [address] Oct, [facility] [address] [id number] [address] [place] [address] 12 Sep, 2009 [facility] [address] [id number] [address] [place] [address] Sep, [facility] [address] [facility] [id number] [address] [place] [address] Sep, [facility] [address] [facility] [id number] [address] [place] [phone] Aug, [facility] [address] [facility] [id number] [address] [place] [address] Aug, [facility] [address] [facility] [id number] [address] [place] [phone] Aug, [facility] [address] [facility] [id number] [address] [place] [phone] Jan, IMMUNIZATIONS No Known Immunizations SOCIAL HISTORY [...]
--- OUTSIDE RECORDS SUMMARY | 2020-06-13 16:11 | XMS REPORT ---
Author Author Jah Dixon [facility] [employer] Address [address] [place] [address] Care Team Providers Care Therapist Radiation Name Role Phone NU Dixon Unavailable PROBLEMS Type Condition ICD9-CM Code ILK39-ZF Code Onset Dates Condition S tatus SNOMED Code Problem Hypothyroid E03.9 Active 66578120 Problem Neuropathy G62.9 Active 143090724 Problem Mixed hyperlipidemia E78.2 Active 472583994 Problem Overactive bladder N32.81 Active 2 40829526 Problem Irritable bowel syndrome with diarrhea K58.0 Active 831571110 Problem Gastroesophageal reflux disease with esophagitis K 21.0 Active 278475388 Problem Type 2 diabetes mellitus with hyperglycemia E11.65 Active 07727299 Problem halfway current use of insulin Z79.4 Active 530034253 Problem Current non-adherence to medical treatment Z91.19 Active 8491098 Problem Recurrent major depressive disorder, in partial remission F33.41 Active 34995069 Problem Chronic fatigue R53.82 Active 8422 9001 Problem 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 Active 802699320 Problem Pulmonary emphysema, unspecified emphysema type J4 3.9 Active 45101141 Problem Thrombocytosis D47.3 Active 01794 09 Problem Acquired hypothyroidism E03.9 Active 378131116 Problem Essential (primary) hypertension I10 Active 07783085 Problem Chronic pain G89.29 Active 5179678 1 Problem Anxiety disorder, unspecified type F41.9 Active 922950410 Problem Major depressive disorder, recurrent episode, moderate F33.1 Active 135625632 Problem Hypertriglyceridemia E78.1 Active 285629310 Problem Gastroparesis K31.84 Active 977773 006 ALLERGIES No Information ENCOUNTERS Encounter Location Date Diagnosis [facility] [address] [facility] [id number] [place] [address] May, Chronic pain G89.29 [facility] [address] [facility] [id number] [address] [place] [id number] Apr, Poison maryam dermatitis L23.7 [facility] [address] [facility] [id number] [address] [place] [id number] Apr, Chronic pain G89.29 [facility] [address] [facility] [id number] [address] [place] [id number] March, Type 2 diabetes mellitus wit h hyperglycemia E11.65 [facility] [address] [facility] [id number] [address] [place] [id number] March, Chronic pain G89.29 [facility] [address] [facility] [id number] [address] [place] [phone] March, [address] [address] Feb, [facility] [address] [facility] [id number] [address] [place] [phone] Feb, Other chronic pain G89.29 an d Chronic pain G89.29 [facility] [address] [facility] [id number] [address] [place] [id number] Jan, Mixed hyperlipidemia E78.2 [facility] [address] [facility] [id number] [address] [place] [id number] Jan, Chronic pain G89.29 [facility] [address] [facility] [id number] [address] [place] [id number] Jan, Type 2 diabetes mellitus wit h hyperglycemia E11.65 ; Mixed hyperlipidemia E78.2 ; halfway current use of insulin Z79.4 ; Acquired hypothyroidism E03.9 and Essential (primary) hypertension I10 [facility] [address] [facility] [id number] [address] [place] [id number] Dec, Chronic pain G89.29 [facility] [address] [facility] [id number] [address] [place] [id number] Nov, Chronic pain G89.29 [facility] [address] [place] [id number] [address] [place] [id number] Nov, [facility] [address] [place] [id number] [address] [place] [id number] Oct, Chronic pain G89.29 [facility] [address] [place] [id number] [address] [place] [id number] Oct, [facility] [address] [address] Sep, [facility] [address] [place] [id number] [place] [address] Sep, Type 2 diabetes mellitus wit h hyperglycemia E11.65 [place] [address] [place] [id number] [place] [id number] Sep, Chronic pain G89.29 [facility] [address] [place] [id number] [address] [place] [id number] Sep, [facility] [address] [place] [id number] [place] [id number] Sep, Type 2 diabetes mellitus wit h hyperglycemia E11.65 ; Irritable bowel syndrome with diarrhea K58.0 ; Gastroparesis K31.84 ; 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 [facility] [address] [place] [id number] [address] [place] [id number] Aug, Chronic pain G89.29 [place] [address] [place] [id number] [address] [place] [id number] Jul, Chronic pain G89.29 [facility] [address] [place] [id number] [address] [place] [id number] Jun, Type 2 diabetes mellitus wit h hyperglycemia E11.65 ; Neuropathy G62.9 ; Recurrent major depressive disorder, in partial remission F33.41 ; Chronic pain G89.[address] [facility] [address] [place] [id number] [address] [place] [id number] Jun, Hypothyroid E03.9 [facility] [address] [id number] [address] [place] [id number] Jun, Major depressive disorder, r ecurrent episode, moderate F33.1 and Anxiety disorder, unspecified type F41.9 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 ; Recurrent major depressive disorder, in partial remission F33.41 ; Hypothyroid E03.9 ; Candidal dermatitis B37.2 and Weakness generalized R53.1 [place] [address] [facility] [id number] [address] [place] [phone] May, [place] [address] [facility] [id number] [address] [place] [phone] May, [place] [address] [id number] [address] [place] [phone] May, [place] [address] [facility] [id number] [address] [place] [id number] May, Generalized abdominal pain R 10.84 and Candidal dermatitis B37.2 [place] [id number] [facility] [id number] [address] [place] [phone] May, [place] [address] [facility] [id number] [address] [place] [id number] May, [place] [address] [facility] [id number] [address] [place] [address] May, Nodular radiologic density R 93.8 ; Weight loss, unintentional R63.4 and Pulmonary emphysema, unspecified emphysema type J43.9 [facility] [address] [facility] [id number] [address] [place] [address] May, Chronic pain G89.29 [place] [address] [id number] [address] [place] [id number] 09 May, 2018 Syncope and collapse R55 ; C hronic fatigue R53.[address] lung screening R91.8 [facility] [address] [id number] [address] [place] [id number] May, [facility] [address] [id number] [address] [place] [id number] Apr, Chronic fatigue R53.82 ; Abn ormal chest CT R93.8 ; Elevated erythrocyte sedimentation rate R70.0 ; Hypothyroid E03.9 and Recurrent major depressive disorder, in partial remission F33.41 [facility] [address] [id number] [address] [place] [id number] Apr, Hypothyroid E03.9 [facility] [address] [facility] [id number] [address] [place] [id number] Apr, Depression F32.9 [facility] [address] [facility] [id number] [address] [place] [id number] Apr, [facility] [address] [facility] [id number] [address] [place] [phone] March, [facility] [address] [facility] [id number] [address] [place] [id number] March, Hypothyroid E03.9 [facility] [address] [facility] [id number] [address] [place] [id number] March, Diabetes mellitus E11.[address] [facility] [address] [id number] [address] [place] [id number] March, Diabetes mellitus E11.9 [facility] [address] [id number] [address] [place] [id number] March, Hypothyroid E03.9 and Elevat ed liver enzymes R74.8 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 ; Pulmonary emphysema, unspecified emphysema type J43.9 ; Hypothyroid E03.9 ; Neuropathy G62.9 ; Mixed hyperlipidemia E78.2 ; Chronic pain G89.29 ; Gastroesophageal reflux disease with esophagitis K21.0 ; Irritable bowel syndrome with diarrhea K58.0 ; Overactive bladder N32.81 and Recurrent major depressive disorder, in partial remission F33.41 [place] [address] [facility] [id number] [address] [place] [id number] Feb, Chronic pain G89.29 [place] [address] [facility] [id number] [address] [place] [id number] Feb, Type 2 diabetes mellitus wit h hyperglycemia E11.65 and Skin lesion of scalp L98.9 [place] [address] [facility] [id number] [address] [place] [id number] Feb, [place] [address] [facility] [id number] [address] [place] [id number] Jan, Type 2 diabetes mellitus wit h [...] and Irritable bowel syndrome with diarrhea K58.0 [place] [address] [facility] [id number] [address] [place] [phone] Jan, [place] [address] [facility] [id number] [address] [place] [id number] Jan, Controlled substance agreeme nt signed Z79.899 [place] [address] [facility] [id number] [address] [place] [id number] Dec, Type 2 diabetes mellitus wit h hyperglycemia E11.65 ; Controlled substance agreement signed Z79.899 ; 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 ; Essential (primary) hypertension I10 ; Hypothyroid E03.9 ; Neuropathy G62.9 ; Depression F32.9 ; Mixed hyperlipidemia E78.2 ; Irritable bowel syndrome with diarrhea K58.0 ; Gastroesophageal reflux disease with esophagitis K21.0 ; Thrombocytosis D47.3 ; Current non-adherence to medical treatment Z91.19 and Overweight (BMI 25.0-29.9) E66.3 [place] [address] [place] [id number] [address] [place] [phone] 02 Dec, 2017 Controlled substance agreeme nt signed Z79.899 [place] [address] [place] [id number] [address] [place] [phone] Nov, Type 2 diabetes mellitus wit h hyperglycemia E11.65 and Current non- adherence to medical treatment Z91.19 [place] [address] [place] [id number] [address] [place] [id number] Nov, [place] [address] [place] [id number] [address] [place] [id number] Nov, Chronic pain G89.29 [place] [address] [place] [id number] [address] [place] [id number] Nov, [place] [address] [place] [id number] [address] [place] [id number] Nov, Hypothyroid E03.9 [place] [address] [place] [id number] [address] [place] [id number] Nov, Hypothyroid E03.9 [place] [address] [place] [id number] [address] [place] [id number] Nov, Pulmonary emphysema, unspeci fied emphysema type J43.9 and Irritable bowel syndrome with diarrhea K58.0 [place] [address] [place] [id number] [address] [place] [phone] Oct, [place] [address] [place] [id number] [address] [place] [phone] Oct, [place] [address] [place] [id number] [address] [place] [phone] Oct, [place] [address] [place] [id number] [address] [place] [phone] Oct, [place] [address] [place] [id number] [address] [place] [id number] Oct, Chronic pain G89.29 [place] [id number] [place] [id number] Oct, Diabetes mellitus E11.9 ; De pression F32.9 ; Mixed hyperlipidemia E78.2 ; Hypotension, unspecified hypotension type I95.9 ; Pulmonary emphysema, unspecified emphysema type J43.9 and Weight loss, unintentional R63.4 [place] [id number] [place] [address] Oct, Chronic pain G89.[address] [address] Sep, Chronic pain G89.29 [place] [address] [address] Sep, Hypothyroid E03.9 and Diabet es mellitus E11.[address] [address] Aug, Type 2 diabetes mellitus wit h hyperglycemia E11.65 ; halfway current use of insulin Z79.4 ; Essential (primary) hypertension I10 ; Hypothyroid E03.9 ; Neuropathy G62.9 ; Chronic pain G89.29 ; Mixed hy perlipidemia E78.2 and Encounter for immunization Z23 [place] [address] [place] [id number] [address] [place] [id number] Aug, Chronic pain G89.29 [place] [id number] [place] [id number] Aug, Overactive bladder N32.81 ; Diabetes mellitus E11.9 and Chronic pain G89.[address] [address] Jul, [facility] [address] [facility] [id number] [address] [place] [id number] Jun, [facility] [address] [facility] [id number] [address] [place] [id number] Jun, [facility] [address] [facility] [id number] [address] [place] [phone] Jun, Hypothyroid E03.9 [facility] [address] [facility] [id number] [address] [place] [id number] Jun, Diabetes mellitus E11.9 ; Hy pothyroid E03.9 ; Neuropathy G62.9 ; Chronic pain G89.29 and Neck mass R22.1 [facility] [address] [facility] [id number] [address] [place] [id number] Apr, [facility] [address] [facility] [id number] [address] [place] [id number] Apr, Acute cystitis without hemat uria N30.00 [facility] [address] [facility] [id number] [address] [place] [phone] March, [facility] [address] [facility] [id number] [address] [place] [phone] March, [facility] [address] [place] [id number] [address] [place] [phone] March, Near syncope R55 [facility] [address] [facility] [id number] [address] [place] [id number] Feb, [facility] [address] [facility] [id number] [address] [place] [address] Feb, Chronic pain G89.29 [facility] [address] [facility] [id number] [address] [place] [id number] Feb, [facility] [address] [facility] [id number] [address] [place] [id number] Feb, [facility] [address] [facility] [id number] [address] [place] [id number] 24 Jan, [address] [facility] [address] [address] Jan, [facility] [address] [address] 16 Jan, 2017 [facility] [address] [address] 14 Jan, 2017 Diabetes mellitus E11.9 ; Hy pothyroid E03.9 ; GERD (gastroesophageal reflux disease) K21.9 ; Insomnia G47.00 ; Functional 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 ; Neuropathy G62.9 ; Depression F32.9 ; Chronic pain G89.29 ; Irritable bowel syndrome with diarrhea K58.0 ; Overactive bladder N32.81 ; Mixed hyperlipidemia E78.[address] [facility] [address] [address] Dec, [facility] [address] [address] Dec, [facility] [address] [address] Dec, [facility] [address] [address] Dec, [facility] [address] [address] Dec, Chronic pain G89.29 [facility] [address] [place] [id number] [address] [place] [phone] Dec, [facility] [address] [address] Dec, [facility] [address] [place] [id number] [address] [place] [address] 17 Dec, 2016 Type 2 diabetes mellitus wit h foot ulcer E11.621 [facility] [address] [place] [address] 17 Dec, 2016 Type 2 diabetes mellitus wit h foot ulcer E11.621 [place] [address] [place] [id number] [place] [address] 14 Dec, 2016 HTN (hypertension) I10 ; Dep ression F32.9 ; Type 2 diabetes mellitus with foot ulcer E11.621 ; Functional 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 ; Irritable bowel syndrome with diarrhea K58.0 ; Chronic pain G89.29 ; Insomnia G47.00 ; Overactive bladder N32.81 ; Mixed hyperlipidemia E78.2 ; Gastroesophageal reflux disease with esophagitis K21.0 and Acquired hypothyroidism E03.9 [place] [address] [address] Nov, [place] [address] [address] Oct, [place] [address] [address] Oct, [place] [address] [address] Oct, [place] [address] [address] Sep, Functional 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 ; HTN (hypertension) I10 ; Diabetes mellitus E11.9 ; Depression F32.9 ; Overactive bladder N32.81 ; Mixed hyperlipidemia E78.2 ; Gastroesophageal reflux disease without esophagitis K21.9 ; Chronic pain G89.29 ; Insomnia G47.00 and Acquired hypothyroidism E03.9 [place] [id number] [place] [phone] Sep, [place] [address] [address] Aug, Encounter for immunization Z 23 [place] [address] [place] [id number] [place] [id number] Aug, [place] [address] [address] Jul, [place] [address] [address] Jun, Type 2 diabetes mellitus wit hout complications E11.9 ; HTN (hypertension) I10 ; Hypothyroid E03.9 ; Neuropathy G62.9 ; Depression F32.9 ; Chronic pain G89.29 ; GERD (gastroesophageal reflux disease) K21.9 ; Insomnia G47.00 ; Overactive bladder N32.81 ; Mixed hyperlipidemia E78.2 ; Diarrhea of infectious origin A09 and Environmental allergies Z91.09 [place] [address] [address] Apr, [place] [address] [address] March, Hypothyroidism, unspecified E03.9 and Mixed hyperlipidemia E78.2 [place] [address] [address] March, Diabetes mellitus E11.9 ; HT N (hypertension) I10 ; Hypothyroid E03.9 ; Depression F32.9 ; Overactive bladder N32.81 ; Other chronic pain G89.29 ; Lumbago with sciatica, unspecified side M54.40 ; Environmental allergies Z91.09 and Gastroesophageal reflux disease, esophagitis presence not specified K21.9 [place] [address] [address] March, [place] [address] [address] Jan, HTN (hypertension) I10 ; Hyp othyroid E03.9 ; Neuropathy G62.9 ; Diabetes mellitus E11.9 ; Chronic pain G89.29 ; GERD (gastroesophageal reflux disease) K21.9 ; Overactive bladder N32.81 and Depression F32.9 [place] [address] [address] Dec, Ear pain, left H92.02 ; HTN (hypertension) I10 ; Hypothyroid E03.9 ; Neuropathy G62.9 ; Diabetes mellitus E11.9 ; Depression F32.9 ; GERD (gastroesophageal reflux disease) K21.9 ; Insomnia G47.00 and Overactive bladder N32.81 [facility] [address] [facility] [id number] [address] [place] [address] Nov, Overactive bladder N32.81 an d Chronic pain G89.29 [place] [address] [facility] [id number] [address] [place] [address] Nov, Kidney failure N19 [place] [address] [place] [id number] [address] [place] [id number] Nov, [place] [address] [place] [id number] [address] [place] [address] Nov, [place] [address] [place] [id number] [address] [place] [address] Nov, Diabetes mellitus E11.9 ; De pression F32.9 ; Chronic pain G89.29 ; GERD (gastroesophageal reflux disease) K21.9 ; Insomnia G47.00 ; HTN (hypertension) I10 ; Hypothyroid E03.9 ; COPD (chronic obstructive pulmonary disease) J44.9 ; Bladder incontinence R32 and Incontinence R32 [place] [address] [place] [id number] [place] [address] Sep, Type 2 diabetes mellitus wit h foot ulcer E11.621 and Chromosomal abnormality, 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 [place] [address] [facility] [id number] [address] [place] [address] Sep, [place] [address] [facility] [id number] [address] [place] [address] Aug, [place] [address] [facility] [id number] [address] [place] [address] Aug, [place] [address] [place] [id number] [address] [place] [address] Aug, HTN (hypertension) I10 ; Enc ounter for immunization Z23 ; Hypothyroid E03.9 ; Neuropathy G62.9 ; Diabetes mellitus E11.9 ; Depression F32.9 ; Chronic pain G89.29 ; GERD (gastroesophageal reflux disease) K21.9 ; Insomnia G47.00 and COPD (chronic obstructive pulmonary disease) J44.9 [place] [address] [address] Jun, [place] [address] [address] Jun, [address] [address] May, Essential hypertension, ivis gn 401.1 ; Unspecified hypothyroidism 244.9 ; Insomnia, unspecified 780.52 ; Shortness of breath 786.05 ; Depression 311 ; COPD (chronic obstructive pulmonary disease) 496 ; GERD (gastroesophageal reflux disease) 530.81 and Diabetes 1.5, 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 [address] May, [address] [address] May, [address] [address] May, Shortness of breath 786.05 ; Essential hypertension, benign 401.1 ; Diabetes mellitus 250.00 ; Hyperlipidemia 272.4 ; Hypothyroid 244.9 ; Insomnia 780.52 and Cough 786.[address] [address] Apr, [address] [address] March, Shortness of breath 786.05 ; Nausea with vomiting 787.01 ; Essential hypertension, benign 401.1 ; Diabetes mellitus 250.00 ; Hyperlipidemia 272.4 and Hypothyroid 244.[address] [address] Feb, [facility] [address] [id number] [address] [place] [address], [place] [address] Feb, [facility] [address] [id number] [address] [place] [address], [place] [address] Jan, [facility] [address] [id number] [address] [place] [address], [place] [address] Jan, [facility] [address] [id number] [address] [place] [address], [place] [address] Jan, [facility] [address] [id number] [address] [place] [address], [place] [address] Jan, [facility] [address] [id number] [address] [place] [address], [place] [address] Jan, [facility] [address] [id number] [address] [place] [address], [place] [address] Jan, [facility] [address] [id number] [address] [place] [address], [place] [address] Jan, [facility] [address] [id number] [address] [place] [address], [place] [address] Jan, [facility] [address] [id number] [address] [place] [address], [place] [address] Jan, [facility] [address] [id number] [address] [place] [address], [place] [address] Jan, [facility] [address] [id number] [address] [place] [address], [place] [address] Dec, [facility] [address] [id number] [address] [place] [address], [place] [address] Dec, [facility] [address] [id number] [address] [place] [address], [place] [address] Dec, [facility] [address] [id number] [address] [place] [address], [place] [address] Dec, [facility] [address] [id number] [address] [place] [address], [place] [address] Dec, 2014 [facility] [address] [id number] [address] [place] [address], [place] [address] Dec, 2014 [facility] [address] [id number] [address] [place] [address], [place] [address] Dec, 2014 [facility] [address] [id number] [address] [place] [address], [place] [address] Dec, 2014 [facility] [address] [id number] [address] [place] [address], [place] [address] Dec, 2014 [facility] [address] [id number] [address] [place] [address], [place] [address] Dec, 2014 [facility] [address] [id number] [address] [place] [address], [place] [address] Oct, [facility] [address] [id number] [address] [place] [address], [place] [address] Oct, [facility] [address] [id number] [address] [place] [address], [place] [address] Oct, [facility] [address] [id number] [address] [place] [address], [place] [address] Oct, [facility] [address] [id number] [address] [place] [address], [place] [address] Oct, [facility] [address] [id number] [address] [place] [address], [place] [address] Oct, [facility] [address] [id number] [address] [place] [address], [place] [address] Oct, [facility] [address] [id number] [address] [place] [address], [place] [address] Oct, [facility] [address] [id number] [address] [place] [address], [place] [address] Oct, [facility] [address] [id number] [address] [place] [address], [place] [address] Oct, [facility] [address] [id number] [address] [place] [address], [place] [address] Oct, [facility] [address] [id number] [address] [place] [address], [place] [address] Oct, [facility] [address] [id number] [address] [place] [address], [place] [address] Oct, [facility] [address] [id number] [address] [place] [address], [place] [address] Oct, [facility] [address] [id number] [address] [place] [address], [place] [address] Sep, [facility] [address] [id number] [address] [place] [address], [place] [address] Sep, [facility] [address] [id number] [address] [place] [address], [place] [address] Sep, [facility] [address] [id number] [address] [place] [address], [place] [address] Sep, [facility] [address] [id number] [address] [place] [address], [place] [address] Sep, [facility] [address] [id number] [address] [place] [address], [place] [address] Sep, [facility] [address] [id number] [address] [place] [address], [place] [address] Sep, [facility] [address] [id number] [address] [place] [address], [place] [address] Sep, [facility] [address] [id number] [address] [place] [address], [place] [address] Sep, [facility] [address] [id number] [address] [place] [address], [place] [address] Aug, [facility] [address] [id number] [address] [place] [address], [place] [address] Aug, [facility] [address] [id number] [address] [place] [address], [place] [address] 17 Aug, 2014 [facility] [address] [id number] [address] [place] [address], [place] [address] 17 Aug, 2014 [facility] [address] [id number] [address] [place] [address], [place] [address] 16 Aug, 2014 [facility] [address] [id number] [address] [place] [address], [place] [address] Aug, [facility] [address] [id number] [address] [place] [address], [place] [address] Aug, [facility] [address] [id number] [address] [place] [address], [place] [address] Aug, [facility] [address] [id number] [address] [place] [address], [place] [address] Aug, [facility] [address] [id number] [address] [place] [address], [place] [address] 29 Jul, 2013 [facility] [address] [id number] [address] [place] [address], [place] [address] 29 Jul, 2013 [facility] [address] [id number] [address] [place] [address], [place] [address] 25 Jul, 2013 [facility] [address] [id number] [address] [place] [address], [place] [address] 25 Jul, 2013 [facility] [address] [id number] [address] [place] [address], [place] [address] 25 Jul, 2013 [facility] [address] [id number] [address] [place] [address], [place] [address] 25 Jul, 2013 [facility] [address] [id number] [address] [place] [address], [place] [address] 25 Jul, 2013 [facility] [address] [id number] [address] [place] [address], [place] [address] 25 Jul, 2013 [facility] [address] [id number] [address] [place] [address], [place] [address] 02 Jul, 2013 [facility] [address] [id number] [facility] [place] [address] Jul, [facility] [address] [id number] [facility] [place] [address] Jun, [facility] [address] [id number] [facility] [place] [address] Jun, [facility] [address] [id number] [facility] [place] [address] Jun, [facility] [address] [id number] [facility] [place] [address] Jun, [facility] [address] [id number] [address] [place] [address], [place] [address] Jun, [facility] [address] [id number] [address] [place] [address], [place] [address] Jun, [facility] [address] [id number] [address] [place] [address], [place] [address] Jun, [facility] [address] [id number] [address] [place] [address], [place] [address] Jun, [facility] [address] [id number] [address] [place] [address], [place] [address] Jun, [facility] [address] [id number] [address] [place] [address], [place] [address] Jun, [facility] [address] [id number] [address] [place] [address], [place] [address] Jun, [facility] [address] [id number] [address] [place] [address], [place] [address] Jun, [facility] [address] [id number] [address] [place] [address], [place] [address] May, [facility] [address] [id number] [address] [place] [address], [place] [address] May, [facility] [address] [id number] [address] [place] [address], [place] [address] May, [facility] [address] [id number] [facility] [place] [address] May, [facility] [address] [id number] [address] [place] [address], [place] [address] May, [facility] [address] [id number] [address] [place] [address], [place] [address] May, [facility] [address] [id number] [address] [place] [address], [place] [address] March, [facility] [address] [id number] [address] [place] [address], [place] [address] March, [facility] [address] [id number] [address] [place] [address], [place] [address] March, [facility] [address] [id number] [address] [place] [address], [place] [address] March, [facility] [address] [id number] [address] [place] [address], [place] [address] March, [facility] [address] [id number] [address] [place] [address], [place] [address] March, [facility] [address] [id number] [address] [place] [address], [place] [address] Feb, [facility] [address] [id number] [address] [place] [address], [place] [address] Feb, [facility] [address] [id number] [address] [place] [address], [place] [address] Feb, [facility] [address] [id number] [address] [place] [address], [place] [address] Feb, [facility] [address] [id number] [address] [place] [address], [place] [address] Jan, [facility] [address] [id number] [address] [place] [address], [place] [address] Jan, [facility] [address] [id number] [address] [place] [address], [place] [address] Jan, [facility] [address] [id number] [facility] [place] [address] Jan, [facility] [address] [id number] [address] [place] [address], [place] [address] Jan, [facility] [address] [id number] [address] [place] [address], [place] [address] Jan, [facility] [address] [id number] [address] [place] [address], [place] [address] Jan, [facility] [address] [id number] [address] [place] [address], [place] [address] Jan, [facility] [address] [id number] [address] [place] [address], [place] [address] Jan, [facility] [address] [id number] [address] [place] [address], [place] [address] Jan, [facility] [address] [id number] [address] [place] [address], [place] [address] Jan, [facility] [address] [id number] [address] [place] [address], [place] [address] Jan, [facility] [address] [id number] [address] [place] [address], [place] [address] Dec, [facility] [address] [id number] [address] [place] [address], [place] [address] Dec, [facility] [address] [id number] [address] [place] [address], [place] [address] Dec, [facility] [address] [id number] [address] [place] [address], [place] [address] Dec, [facility] [address] [id number] [address] [place] [address], [place] [address] Dec, [facility] [address] [id number] [address] [place] [address], [place] [address] Dec, [facility] [address] [id number] [address] [place] [address], [place] [address] Nov, [facility] [address] [id number] [address] [place] [address], [place] [address] Nov, [facility] [address] [id number] [address] [place] [address], [place] [address] Oct, [facility] [address] [id number] [address] [place] [address], [place] [address] Oct, [facility] [address] [id number] [address] [place] [address], [place] [address] Oct, [facility] [address] [id number] [address] [place] [address], [place] [address] Oct, [facility] [address] [id number] [address] [place] [address], [place] [address] Oct, [facility] [address] [id number] [address] [place] [address], [place] [address] Oct, [facility] [address] [id number] [address] [place] [address], [place] [address] Sep, [facility] [address] [id number] [address] [place] [address] Sep, [facility] [address] [id number] [address] [place] [address] Sep, [facility] [address] [id number] [address] [place] [address] Sep, [facility] [address] [id number] [address] [place] [address], [place] [address] Aug, [facility] [address] [id number] [address] [place] [address], [place] [address] Aug, [facility] [address] [id number] [address] [place] [address] Aug, [facility] [address] [id number] [address] [place] [address] 17 Jul, 2013 [facility] [address] [id number] [address] [place] [address], [place] [address] 14 Jul, 2013 [facility] [address] [id number] [address] [place] [address], [place] [address] 04 Jul, 2013 [facility] [address] [id number] [address] [place] [address], [place] [address] Jun, [facility] [address] [id number] [address] [place] [address], [place] [address] Jun, [facility] [address] [id number] [address] [place] [address], [place] [address] Jun, [facility] [address] [id number] [address] [place] [address], [place] [address] Apr, [facility] [address] [id number] [address] [place] [address], [place] [address] Apr, [facility] [address] [id number] [address] [place] [address], [place] [address] March, [facility] [address] [id number] [address] [place] [address], [place] [address] March, [facility] [address] [id number] [address] [place] [address], [place] [address] March, [facility] [address] [id number] [address] [place] [address], [place] [address] March, [facility] [address] [id number] [address] [place] [address], [place] [address] Feb, [facility] [address] [id number] [address] [place] [address], [place] [address] Jan, [facility] [address] [id number] [address] [place] [address], [place] [address] Dec, [facility] [address] [id number] [address] [place] [address], [place] [address] Dec, [facility] [address] [id number] [address] [place] [address], [place] [address] Dec, [facility] [address] [id number] [address] [place] [address], [place] [address] Nov, [facility] [address] [id number] [address] [place] [address], [place] [address] Oct, [facility] [address] [id number] [address] [place] [address], [place] [address] Oct, [facility] [address] [id number] [address] [place] [address], [place] [address] Sep, [facility] [address] [id number] [address] [place] [address], [place] [address] Sep, [facility] [address] [id number] [address] [place] [address], [place] [address] Sep, [facility] [address] [id number] [address] [place] [address], [place] [address] Sep, [facility] [address] [id number] [address] [place] [address], [place] [address] Sep, [facility] [address] [id number] [address] [place] [address], [place] [address] Sep, [facility] [address] [id number] [address] [place] [address], [place] [address] Sep, [facility] [address] [id number] [address] [place] [address], [place] [address] Aug, [facility] [address] [id number] [address] [place] [address], [place] [address] Aug, [facility] [address] [id number] [address] [place] [address], [place] [address] Aug, [facility] [address] [id number] [address] [place] [address], [place] [address] Aug, [facility] [address] [id number] [address] [place] [address], [place] [address] 08 Aug, 2012 [facility] [address] [id number] [address] [place] [address], [place] [address] Aug, [facility] [address] [id number] [address] [place] [address], [place] [address] Aug, [facility] [address] [id number] [address] [place] [address], [place] [address] Aug, [facility] [address] [id number] [address] [place] [address], [place] [address] Jul, [facility] [address] [id number] [address] [place] [address], [place] [address] Jul, [facility] [address] [id number] [address] [place] [address], [place] [address] Jun, [facility] [address] [id number] [address] [place] [address], [place] [address] May, [facility] [address] [id number] [address] [place] [address], [place] [address] Apr, [facility] [address] [id number] [address] [place] [address], [place] [address] Apr, [facility] [address] [id number] [address] [place] [address], [place] [address] Apr, [facility] [address] [id number] [address] [place] [address], [place] [address] March, [facility] [address] [id number] [address] [place] [address], [place] [address] March, [facility] [address] [id number] [address] [place] [address], [place] [address] March, [facility] [address] [id number] [address] [place] [address], [place] [address] March, [facility] [address] [id number] [address] [place] [address], [place] [address] March, [facility] [address] [id number] [address] [place] [address], [place] [address] March, [facility] [address] [id number] [address] [place] [address], [place] [address] March, [facility] [address] [id number] [address] [place] [address], [place] [address] Jan, [facility] [address] [id number] [address] [place] [address], [place] [address] Jan, [facility] [address] [id number] [address] [place] [address], [place] [address] Jan, [facility] [address] [id number] [address] [place] [address], [place] [address] Jan, [facility] [address] [id number] [address] [place] [address], [place] [address] Jan, [facility] [address] [id number] [address] [place] [address], [place] [address] Dec, [facility] [address] [id number] [address] [place] [address], [place] [address] Dec, [facility] [address] [id number] [address] [place] [address], [place] [address] Nov, [facility] [address] [id number] [address] [place] [address], [place] [address] Nov, [facility] [address] [id number] [address] [place] [address], [place] [address] Nov, [facility] [address] [id number] [address] [place] [address], [place] [address] Nov, [facility] [address] [id number] [address] [place] [address], [place] [address] Oct, [facility] [address] [id number] [address] [place] [address], [place] [address] Oct, [facility] [address] [id number] [address] [place] [address], [place] [address] 14 Sep, 2011 [facility] [address] [id number] [address] [place] [address], [place] [address] 10 Sep, 2011 [facility] [address] [id number] [address] [place] [address], [place] [address] 10 Sep, 2011 [facility] [address] [id number] [address] [place] [address], [place] [address] 11 May, 2011 [facility] [address] [id number] [address] [place] [address], [place] [address] 20 Nov, 2010 [facility] [address] [id number] [address] [place] [address], [place] [address] 29 Oct, 2010 [facility] [address] [id number] [address] [place] [address], [place] [address] 14 Oct, 2010 [facility] [address] [id number] [address] [place] [address], [place] [address] Oct, [facility] [address] [id number] [address] [place] [address], [place] [address] 15 Sep, 2010 [facility] [address] [id number] [address] [place] [address], [place] [address] Sep, [facility] [address] [id number] [address] [place] [phone] Aug, [facility] [address] [id number] [address] [place] [address], [place] [address] March, [facility] [address] [id number] [address] [place] [phone] Oct, [facility] [address] [id number] [address] [place] [address], [place] [address] Oct, [facility] [address] [id number] [address] [place] [address], [place] [address] Oct, [facility] [address] [id number] [address] [place] [address] Oct, [facility] [address] [id number] [address] [place] [phone] Sep, [facility] [address] [facility] [id number] [address] [place] [phone] Sep, [facility] [address] [facility] [id number] [address] [place] [id number] Sep, [facility] [address] [facility] [id number] [address] [place] [phone] Aug, [facility] [address] [facility] [id number] [address] [place] [phone] Aug, [facility] [address] [facility] [id number] [address] [place] [id number] Aug, [facility] [address] [facility] [id number] [address] [place] [id number] Jan, IMMUNIZATIONS No Known Immunizations SOCIAL HISTORY [...]
--- OUTSIDE RECORDS SUMMARY | 2020-06-13 16:12 | XMS REPORT ---
Author Author Jah Durant Doctor Organization [facility] Address Unknown Phone Unavailable Care Team Providers Care Fleet Assistant Name Role Phone Migration, Doctor Unavailable Unavailable PROBLEMS Type Condition ICD9-CM Code BFK18-TC Code Onset Dates Condition S tatus SNOMED Code Problem Hypothyroid E03.9 Active 72788146 Problem Neuropathy G62.9 Active 474213264 Problem Mixed hyperlipidemia E78.2 Active 295391597 Problem Overactive bladder N32.81 Active 2 95203770 Problem Irritable bowel syndrome with diarrhea K58.0 Active 276528143 Problem Gastroesophageal reflux disease with esophagitis K 21.0 Active 897106546 Problem Type 2 diabetes mellitus with hyperglycemia E11.65 Active 51244414 Problem shelter current use of insulin Z79.4 Active 915199018 Problem Current non-adherence to medical treatment Z91.19 Active 5264870 Problem Recurrent major depressive disorder, in partial remission F33.41 Active 23488669 Problem Chronic fatigue R53.82 Active 8422 9001 Problem 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 Active 948921362 Problem Pulmonary emphysema, unspecified emphysema type J4 3.9 Active 51832962 Problem Thrombocytosis D47.3 Active 20628 09 Problem Acquired hypothyroidism E03.9 Active 963094066 Problem Essential (primary) hypertension I10 Active 07405325 Problem Chronic pain G89.29 Active 7989272 1 Problem Anxiety disorder, unspecified type F41.9 Active 242626210 Problem Major depressive disorder, recurrent episode, moderate F33.1 Active 161713646 Problem Hypertriglyceridemia E78.1 Active 929789584 Problem Gastroparesis K31.84 Active 353256 006 ALLERGIES No Information ENCOUNTERS Encounter Location Date Diagnosis [facility] [address] [facility] [id number] [address] [place] [address] Apr, Poison maryam dermatitis L23.7 [facility] [address] [facility] [id number] [address] [place] [address] Apr, Chronic pain G89.29 [facility] [address] [id number] [address] [place] [address] March, Type 2 diabetes mellitus wit h hyperglycemia E11.65 [facility] [address] [id number] [address] [place] [address] March, Chronic pain G89.29 [facility] [address] [facility] [id number] [address] [place] [address] March, [address] [address] Feb, [facility] [address] [facility] [id number] [address] [place] [address] Feb, Other chronic pain G89.29 an d Chronic pain G89.29 [facility] [address] [facility] [id number] [address] [place] [address] Jan, Mixed hyperlipidemia E78.2 [facility] [address] [facility] [id number] [address] [place] [address] Jan, Chronic pain G89.29 [facility] [address] [facility] [id number] [address] [place] [address] Jan, Type 2 diabetes mellitus wit h hyperglycemia E11.65 ; Mixed hyperlipidemia E78.2 ; shelter current use of insulin Z79.4 ; Acquired hypothyroidism E03.9 and Essential (primary) hypertension I10 [facility] [address] [facility] [id number] [address] [place] [address] Dec, Chronic pain G89.29 [facility] [address] [facility] [id number] [address] [place] [address] Nov, Chronic pain G89.29 [facility] [address] [facility] [id number] [address] [place] [address] Nov, [facility] [address] [facility] [id number] [address] [place] [address] Oct, Chronic pain G89.29 [facility] [address] [address] Oct, [place] [address] [address] Sep, [place] [address] [address] Sep, Type 2 diabetes mellitus wit h hyperglycemia E11.65 [place] [address] [address] Sep, Chronic pain G89.29 [place] [address] [address] Sep, [place] [address] [address] Sep, Type 2 diabetes mellitus wit h hyperglycemia E11.65 ; Irritable bowel syndrome with diarrhea K58.0 ; Gastroparesis K31.84 ; 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 and Dermatitis L30.9 [place] [address] [address] Aug, Chronic pain G89.29 [place] [address] [address] Jul, Chronic pain G89.29 [place] [address] [address] Jun, Type 2 diabetes mellitus wit h hyperglycemia E11.65 ; Neuropathy G62.9 ; Recurrent major depressive disorder, in partial remission F33.41 ; Chronic pain G89.29 and Hypertriglyceridemia E78.1 [place] [address] [address] Jun, Hypothyroid E03.9 [place] [address] [address] Jun, Major depressive disorder, r ecurrent episode, moderate F33.1 and Anxiety disorder, unspecified type F41.9 [place] [address] [place] [id number] [place] [address] Jun, [place] [address] [address] Jun, Type 2 diabetes mellitus wit h hyperglycemia E11.65 ; 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.4 ; Recurrent major depressive disorder, in partial remission F33.41 ; Hypothyroid E03.9 ; Candidal dermatitis B37.2 and Weakness generalized R53.1 [place] [address] [place] [id number] [address] [place] [address] May, [place] [address] [place] [id number] [address] [place] [address] May, [place] [address] [address] May, [place] [address] [address] May, Generalized abdominal pain R 10.84 and Candidal dermatitis B37.2 [place] [address] [place] [id number] [address] [place] [address] May, [place] [address] [address] May, [place] [address] [address] May, Nodular radiologic density R 93.8 ; Weight loss, unintentional R63.4 and Pulmonary emphysema, unspecified emphysema type J43.9 [place] [address] [place] [id number] [address] [place] [address] May, Chronic pain G89.29 [place] [address] [address] May, Syncope and collapse R55 ; C hronic fatigue R53.[address] lung screening R91.8 [place] [address] [address] May, [facility] [address] [id number] [address] [place] [address] Apr, Chronic fatigue R53.82 ; Abn ormal chest CT R93.8 ; Elevated erythrocyte sedimentation rate R70.0 ; Hypothyroid E03.9 and Recurrent major depressive disorder, in partial remission F33.41 [facility] [address] [id number] [address] [place] [address] Apr, Hypothyroid E03.9 [facility] [address] [facility] [id number] [address] [place] [address] Apr, Depression F32.9 [facility] [address] [facility] [id number] [address] [place] [address] Apr, [facility] [address] [facility] [id number] [address] [place] [address] March, [facility] [address] [facility] [id number] [address] [place] [address] March, Hypothyroid E03.9 [facility] [address] [facility] [id number] [address] [place] [address] March, Diabetes mellitus E11.9 and Hypothyroid E03.9 [facility] [address] [facility] [id number] [address] [place] [address] March, Diabetes mellitus E11.9 [place] [address] [facility] [id number] [address] [place] [address] March, Hypothyroid E03.9 and Elevat ed liver enzymes R74.8 [facility] [address] [facility] [id number] [address] [place] [address] March, Type 2 diabetes mellitus wit h hyperglycemia E11.65 ; 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.4 ; Pulmonary emphysema, unspecified emphysema type J43.9 ; Hypothyroid E03.9 ; Neuropathy G62.9 ; Mixed hyperlipidemia E78.2 ; Chronic pain G89.29 ; Gastroesophageal reflux disease with esophagitis K21.0 ; Irritable bowel syndrome with diarrhea K58.0 ; Overactive bladder N32.81 and Recurrent major depressive disorder, in partial remission F33.41 [place] [address] [address] Feb, Chronic pain G89.29 [place] [address] [address] Feb, Type 2 diabetes mellitus wit h hyperglycemia E11.65 and Skin lesion of scalp L98.9 [place] [address] [address] Feb, [place] [address] [address] Jan, Type 2 diabetes mellitus wit h hyperglycemia E11.65 ; shelter current use of insulin Z79.4 ; Essential (primary) hypertension I10 ; Pulmonary emphysema, unspecified emphysema type J43.9 ; Chronic pain G89.29 ; Controlled substance agreement signed Z79.899 ; Hypothyroid E03.9 ; Neuropathy G62.9 ; Gastroesophageal reflux disease with esophagitis K21.0 ; Overactive bladder N32.81 ; Depression F32.9 and Irritable bowel syndrome with diarrhea K58.0 [place] [address] [address] Jan, [place] [address] [address] Jan, Controlled substance agreeme nt signed Z79.899 [place] [address] [address] Dec, Type 2 diabetes mellitus wit h [...] treatment Z91.19 and Overweight (BMI 25.0-29.9) E66.3 [place] [address] [place] [id number] [place] [address] Dec, Controlled substance agreeme nt signed Z79.899 [place] [address] [place] [id number] [address] [place] [address] Nov, Type 2 diabetes mellitus wit h hyperglycemia E11.65 and Current non- adherence to medical treatment Z91.19 [place] [address] [place] [id number] [place] [address] Nov, [place] [address] [address] Nov, Chronic pain G89.29 [place] [address] [address] Nov, [place] [address] [address] Nov, Hypothyroid E03.9 [place] [address] [place] [id number] [address] [place] [address] Nov, Hypothyroid E03.9 [place] [address] [address] Nov, Pulmonary emphysema, unspeci fied emphysema type J43.9 and Irritable bowel syndrome with diarrhea K58.0 [place] [id number] [place] [address] Oct, [place] [address] [place] [id number] [address] [place] [address] Oct, [place] [address] [address] Oct, [place] [address] [place] [id number] [address] [place] [address] Oct, [place] [address] [place] [id number] [address] [place] [address] Oct, Chronic pain G89.29 [place] [address] [place] [id number] [address] [place] [address] Oct, Diabetes mellitus E11.9 ; De pression F32.9 ; Mixed hyperlipidemia E78.2 ; Hypotension, unspecified hypotension type I95.9 ; Pulmonary emphysema, unspecified emphysema type J43.9 and Weight loss, unintentional R63.4 [place] [address] [address] Oct, Chronic pain G89.29 [place] [address] [address] Sep, Chronic pain G89.29 [place] [address] [address] Sep, Hypothyroid E03.9 and Diabet es mellitus E11.9 [place] [address] [address] Aug, Type 2 diabetes mellitus wit h hyperglycemia E11.65 ; shelter current use of insulin Z79.4 ; Essential (primary) hypertension I10 ; Hypothyroid E03.9 ; Neuropathy G62.9 ; Chronic pain G89.29 ; Mixed hy perlipidemia E78.2 and Encounter for immunization Z23 [place] [address] [address] Aug, Chronic pain G89.29 [place] [address] [address] Aug, Overactive bladder N32.81 ; Diabetes mellitus E11.9 and Chronic pain G89.29 [place] [address] [address] Jul, [place] [address] [place] [id number] [place] [address] Jun, [place] [address] [address] Jun, [facility] [address] [facility] [id number] [address] [place] [address] Jun, Hypothyroid E03.9 [facility] [address] [facility] [id number] [address] [place] [address] Jun, Diabetes mellitus E11.9 ; Hy pothyroid E03.9 ; Neuropathy G62.9 ; Chronic pain G89.29 and Neck mass R22.1 [facility] [address] [id number] [address] [place] [address] Apr, [facility] [address] [facility] [id number] [address] [place] [address] Apr, Acute cystitis without hemat uria N30.00 [facility] [address] [facility] [id number] [address] [place] [address] March, [facility] [address] [facility] [id number] [address] [place] [address] March, [facility] [address] [facility] [id number] [address] [place] [address] March, Near syncope R55 [facility] [address] [facility] [id number] [address] [place] [address] Feb, [facility] [address] [facility] [id number] [address] [place] [address] Feb, Chronic pain G89.29 [facility] [address] [facility] [id number] [address] [place] [address] Feb, [facility] [address] [facility] [id number] [address] [place] [address] Feb, [facility] [address] [facility] [id number] [address] [place] [address] Jan, Chronic pain G89.29 [facility] [address] [facility] [id number] [address] [place] [address] Jan, [facility] [address] [facility] [id number] [address] [place] [address] 16 Jan, 2017 [facility] [id number] [place] [address] 14 Jan, 2017 Diabetes mellitus E11.9 ; Hy pothyroid E03.9 ; GERD (gastroesophageal reflux disease) K21.9 ; Insomnia G47.00 ; Functional 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 ; Neuropathy G62.9 ; Depression F32.9 ; Chronic pain G89.29 ; Irritable bowel syndrome with diarrhea K58.0 ; Overactive bladder N32.81 ; Mixed hyperlipidemia E78.2 and Bronchitis J40 [facility] [address] [facility] [id number] [address] [place] [address] Dec, [facility] [address] [place] [id number] [place] [address] 24 Dec, 2016 [facility] [address] [address] Dec, [facility] [address] [place] [id number] [address] [place] [address] 24 Dec, 2016 [facility] [address] [place] [id number] [address] [place] [address] 23 Dec, 2016 Chronic pain G89.29 [facility] [address] [place] [id number] [address] [place] [address] 23 Dec, 2016 [facility] [address] [place] [id number] [address] [place] [address] 20 Dec, 2016 [facility] [address] [place] [id number] [address] [place] [address] 17 Dec, 2016 Type 2 diabetes mellitus wit h foot ulcer E11.621 [facility] [address] [place] [id number] [address] [place] [address] 17 Dec, 2016 Type 2 diabetes mellitus wit h foot ulcer E11.621 [facility] [address] [place] [id number] [address] [place] [address] 14 Dec, 2016 HTN (hypertension) I10 ; Dep ression F32.9 ; Type 2 diabetes mellitus with foot ulcer E11.621 ; Functional 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 ; Irritable bowel syndrome with diarrhea K58.0 ; Chronic pain G89.29 ; Insomnia G47.00 ; Overactive bladder N32.81 ; Mixed hyperlipidemia E78.2 ; Gastroesophageal reflux disease with esophagitis K21.0 and Acquired hypothyroidism E03.9 [place] [address] [place] [address] Nov, [place] [address] [place] [id number] [address] [place] [address] Oct, [place] [address] [place] [id number] [place] [address] Oct, [place] [address] [place] [id number] [place] [address] Oct, [place] [address] [place] [id number] [place] [address] Sep, Functional 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 ; HTN (hypertension) I10 ; Diabetes mellitus E11.9 ; Depression F32.9 ; Overactive bladder N32.81 ; Mixed hyperlipidemia E78.2 ; Gastroesophageal reflux disease without esophagitis K21.9 ; Chronic pain G89.29 ; Insomnia G47.00 and Acquired hypothyroidism E03.9 [place] [address] [place] [id number] [address] [place] [address] Sep, [place] [address] [place] [id number] [place] [address] Aug, Encounter for immunization Z 23 [place] [address] [place] [id number] [address] [place] [address] Aug, [place] [address] [place] [id number] [place] [address] Jul, [place] [address] [place] [id number] [address] [place] [address] Jun, Type 2 diabetes mellitus wit hout complications E11.9 ; HTN (hypertension) I10 ; Hypothyroid E03.9 ; Neuropathy G62.9 ; Depression F32.9 ; Chronic pain G89.29 ; GERD (gastroesophageal reflux disease) K21.9 ; Insomnia G47.00 ; Overactive bladder N32.81 ; Mixed hyperlipidemia E78.2 ; Diarrhea of infectious origin A09 and Environmental allergies Z91.09 [place] [address] [address] Apr, [place] [address] [address] March, Hypothyroidism, unspecified E03.9 and Mixed hyperlipidemia E78.2 [place] [address] [address] March, Diabetes mellitus E11.9 ; HT N (hypertension) I10 ; Hypothyroid E03.9 ; Depression F32.9 ; Overactive bladder N32.81 ; Other chronic pain G89.29 ; Lumbago with sciatica, unspecified side M54.40 ; Environmental allergies Z91.09 and Gastroesophageal reflux disease, esophagitis presence not specified K21.9 [place] [address] [address] March, [place] [address] [address] Jan, HTN (hypertension) I10 ; Hyp othyroid E03.9 ; Neuropathy G62.9 ; Diabetes mellitus E11.9 ; Chronic pain G89.29 ; GERD (gastroesophageal reflux disease) K21.9 ; Overactive bladder N32.81 and Depression F32.9 [place] [address] [address] Dec, Ear pain, left H92.02 ; HTN (hypertension) I10 ; Hypothyroid E03.9 ; Neuropathy G62.9 ; Diabetes mellitus E11.9 ; Depression F32.9 ; GERD (gastroesophageal reflux disease) K21.9 ; Insomnia G47.00 and Overactive bladder N32.81 [place] [address] [address] Nov, Overactive bladder N32.81 an d Chronic pain G89.29 [place] [address] [address] Nov, Kidney failure N19 [place] [address] [address] Nov, [place] [address] [address] Nov, [place] [address] [address] Nov, Diabetes mellitus E11.9 ; De pression F32.9 ; Chronic pain G89.29 ; GERD (gastroesophageal reflux disease) K21.9 ; Insomnia G47.00 ; HTN (hypertension) I10 ; Hypothyroid E03.9 ; COPD (chronic obstructive pulmonary disease) J44.9 ; Bladder incontinence R32 and Incontinence R32 [place] [address] [address] Sep, Type 2 diabetes mellitus wit h foot ulcer E11.621 and Chromosomal abnormality, 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 [place] [address] [address] Sep, [place] [address] [address] Aug, [place] [address] [address] Aug, [place] [address] [address] 07 Aug, 2015 HTN (hypertension) I10 ; Enc ounter for immunization Z23 ; Hypothyroid E03.9 ; Neuropathy G62.9 ; Diabetes mellitus E11.9 ; Depression F32.9 ; Chronic pain G89.29 ; GERD (gastroesophageal reflux disease) K21.9 ; Insomnia G47.00 and COPD (chronic obstructive pulmonary disease) J44.9 [place] [address] [place] [address] [place] [address] Jun, [facility] [address] [place] [id number] [address] [place] [address] Jun, [facility] [address] [place] [id number] [address] [place] [address] May, Essential hypertension, ivis gn 401.1 ; Unspecified hypothyroidism 244.9 ; Insomnia, unspecified 780.52 ; Shortness of breath 786.05 ; Depression 311 ; COPD (chronic obstructive pulmonary disease) 496 ; GERD (gastroesophageal reflux disease) 530.81 and Diabetes 1.5, 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 [facility] [address] [address] May, [facility] [address] [address] May, [facility] [address] [address] May, Shortness of breath 786.05 ; Essential hypertension, benign 401.1 ; Diabetes mellitus 250.00 ; Hyperlipidemia 272.4 ; Hypothyroid 244.9 ; Insomnia 780.52 and Cough 786.2 [facility] [address] [place] [id number] [address] [place] [address] Apr, [facility] [address] [place] [id number] [address] [place] [address] March, Shortness of breath 786.05 ; Nausea with vomiting 787.01 ; Essential hypertension, benign 401.1 ; Diabetes mellitus 250.00 ; Hyperlipidemia 272.4 and Hypothyroid 244.9 [facility] [address] [place] [id number] [address] [place] [address] Feb, [facility] [address] [place] [id number] [address] [place] [address] Feb, [facility] [address] [place] [id number] [address] [place] [address] Jan, [facility] [place] [facility] [address] [id number] [address] [place] [address], [place] [address] 24 Jan, 2015 [facility] [address] [id number] [address] [place] [address], [place] [address] Jan, [facility] [address] [id number] [address] [place] [address], [place] [address] Jan, [facility] [address] [id number] [address] [place] [address], [place] [address] Jan, [facility] [address] [id number] [address] [place] [address], [place] [address] Jan, [facility] [address] [id number] [address] [place] [address], [place] [address] Jan, [facility] [address] [id number] [address] [place] [address], [place] [address] Jan, [facility] [address] [id number] [address] [place] [address], [place] [address] Jan, [facility] [address] [id number] [address] [place] [address], [place] [address] Jan, [facility] [address] [id number] [address] [place] [address], [place] [address] Dec, [facility] [address] [id number] [address] [place] [id number] Dec, [facility] [address] [id number] [address] [place] [address], [place] [address] Dec, 2014 [facility] [address] [id number] [address] [place] [address], [place] [address] Dec, 2014 [facility] [address] [id number] [address] [place] [address], [place] [address] Dec, [facility] [address] [id number] [address] [place] [address] Dec, 2014 [facility] [address] [id number] [address] [place] [address] Dec, 2014 [facility] [address] [id number] [address] [place] [address], [place] [address] Dec, 2014 [facility] [address] [id number] [address] [place] [address], [place] [address] Dec, 2014 [facility] [address] [id number] [address] [place] [address], [place] [address] Dec, 2014 [facility] [address] [id number] [address] [place] [address], [place] [address] Oct, [facility] [address] [id number] [address] [place] [address], [place] [address] Oct, [facility] [address] [id number] [address] [place] [address], [place] [address] Oct, [facility] [address] [id number] [address] [place] [address], [place] [address] Oct, [facility] [address] [id number] [address] [place] [address], [place] [address] Oct, [facility] [address] [id number] [address] [place] [address], [place] [address] Oct, [facility] [address] [id number] [address] [place] [address], [place] [address] Oct, [facility] [address] [id number] [address] [place] [address], [place] [address] Oct, [facility] [address] [id number] [address] [place] [address], [place] [address] Oct, [facility] [address] [id number] [address] [place] [address], [place] [address] Oct, [facility] [address] [id number] [address] [place] [address], [place] [address] Oct, [facility] [address] [id number] [address] [place] [address], [place] [address] Oct, [facility] [address] [id number] [address] [place] [address], [place] [address] Oct, [facility] [address] [id number] [address] [place] [address], [place] [address] Oct, [facility] [address] [id number] [address] [place] [address], [place] [address] Sep, [facility] [address] [id number] [address] [place] [address], [place] [address] Sep, [facility] [address] [id number] [address] [place] [address], [place] [address] Sep, [facility] [address] [id number] [address] [place] [address], [place] [address] Sep, [facility] [address] [id number] [address] [place] [address], [place] [address] Sep, [facility] [address] [id number] [address] [place] [address], [place] [address] Sep, [facility] [address] [id number] [address] [place] [address], [place] [address] Sep, [facility] [address] [id number] [address] [place] [address], [place] [address] Sep, [facility] [address] [id number] [address] [place] [address], [place] [address] Sep, [facility] [address] [id number] [address] [place] [address], [place] [address] Aug, [facility] [address] [id number] [address] [place] [address], [place] [address] Aug, [facility] [address] [id number] [address] [place] [address], [place] [address] Aug, [facility] [address] [id number] [address] [place] [address], [place] [address] Aug, [facility] [address] [id number] [address] [place] [address], [place] [address] 16 Aug, 2014 [facility] [address] [id number] [address] [place] [address], [place] [address] Aug, [facility] [address] [id number] [address] [place] [address], [place] [address] Aug, [facility] [address] [id number] [address] [place] [address], [place] [address] Aug, [facility] [address] [id number] [address] [place] [address], [place] [address] Aug, [facility] [address] [id number] [address] [place] [address], [place] [address] 29 Jul, 2014 [facility] [address] [id number] [address] [place] [address], [place] [address] 29 Jul, 2014 [facility] [address] [id number] [address] [place] [address], [place] [address] Jul, [facility] [address] [id number] [address] [place] [address], [place] [address] Jul, [facility] [address] [id number] [address] [place] [address], [place] [address] Jul, [facility] [address] [id number] [address] [place] [address], [place] [address] Jul, [facility] [address] [id number] [address] [place] [address], [place] [address] Jul, [facility] [address] [id number] [address] [place] [address], [place] [address] Jul, [facility] [address] [id number] [address] [place] [address], [place] [address] Jul, [facility] [address] [id number] [address] [place] [address], [place] [address] Jul, [facility] [address] [id number] [address] [place] [address], [place] [address] Jun, [facility] [address] [id number] [address] [place] [address] [place] [address] Jun, [facility] [address] [id number] [facility] [address] Jun, [facility] [address] [id number] [facility] [place] [address] Jun, [facility] [address] [id number] [facility] [address] Jun, [facility] [address] [id number] [facility] [place] [address] Jun, [facility] [address] [id number] [address] [place] [address], [place] [address] Jun, [facility] [address] [id number] [address] [place] [address], [place] [address] Jun, [facility] [address] [id number] [address] [place] [address], [place] [address] Jun, [facility] [address] [id number] [address] [place] [address], [place] [address] Jun, [facility] [address] [id number] [address] [place] [address], [place] [address] Jun, [facility] [address] [id number] [address] [place] [address], [place] [address] Jun, [facility] [address] [id number] [address] [place] [address], [place] [address] May, [facility] [address] [id number] [address] [place] [address], [place] [address] May, [facility] [address] [id number] [address] [place] [address], [place] [address] May, [facility] [address] [id number] [address] [place] [address], [place] [address] May, [facility] [address] [id number] [address] [place] [address], [place] [address] May, [facility] [address] [id number] [address] [place] [address], [place] [address] May, [facility] [address] [id number] [address] [place] [address], [place] [address] March, [facility] [address] [id number] [address] [place] [address], [place] [address] March, [facility] [address] [id number] [address] [place] [address], [place] [address] March, [facility] [address] [id number] [address] [place] [address], [place] [address] March, [facility] [address] [id number] [address] [place] [address], [place] [address] March, [facility] [address] [id number] [address] [place] [address], [place] [address] March, [facility] [address] [id number] [address] [place] [address], [place] [address] Feb, [facility] [address] [id number] [address] [place] [address], [place] [address] Feb, [facility] [address] [id number] [address] [place] [address], [place] [address] Feb, [facility] [address] [id number] [address] [place] [address], [place] [address] Feb, [facility] [address] [id number] [address] [place] [address], [place] [address] Jan, [facility] [address] [id number] [address] [place] [address], [place] [address] Jan, [facility] [address] [id number] [address] [place] [address], [place] [address] Jan, [facility] [address] [id number] [address] [place] [address], [place] [address] Jan, [facility] [address] [id number] [address] [place] [address], [place] [address] Jan, [facility] [address] [id number] [address] [place] [address], [place] [address] Jan, [facility] [address] [id number] [address] [place] [address], [place] [address] Jan, [facility] [address] [id number] [address] [place] [address], [place] [address] Jan, [facility] [address] [id number] [address] [place] [address], [place] [address] Jan, [facility] [address] [id number] [address] [place] [address], [place] [address] Jan, [facility] [address] [id number] [address] [place] [address], [place] [address] Jan, [facility] [address] [id number] [address] [place] [address], [place] [address] Jan, [facility] [address] [id number] [address] [place] [address], [place] [address] Dec, [facility] [address] [id number] [address] [place] [address], [place] [address] Dec, [facility] [address] [id number] [address] [place] [address], [place] [address] Dec, [facility] [address] [id number] [address] [place] [address], [place] [address] Dec, [facility] [address] [id number] [address] [place] [address], [place] [address] Dec, [facility] [address] [id number] [address] [place] [address], [place] [address] Dec, [facility] [address] [id number] [address] [place] [address], [place] [address] Nov, [facility] [address] [id number] [address] [place] [address], [place] [address] Nov, [facility] [address] [id number] [address] [place] [address], [place] [address] 13 Oct, 2013 [facility] [address] [id number] [address] [place] [address], [place] [address] Oct, [facility] [address] [id number] [address] [place] [address], [place] [address] Oct, [facility] [address] [id number] [address] [place] [address], [place] [address] Oct, [facility] [address] [id number] [address] [place] [address], [place] [address] Oct, [facility] [address] [id number] [address] [place] [address], [place] [address] Oct, [facility] [address] [id number] [address] [place] [address], [place] [address] Sep, [facility] [address] [id number] [address] [place] [address], [place] [address] Sep, [facility] [address] [id number] [address] [place] [address], [place] [address] Sep, [facility] [address] [id number] [address] [place] [address], [place] [address] Sep, [facility] [address] [id number] [address] [place] [address], [place] [address] Aug, [facility] [address] [id number] [address] [place] [address], [place] [address] Aug, [facility] [address] [id number] [address] [place] [address], [place] [address] 08 Aug, 2013 [facility] [address] [id number] [address] [place] [address], [place] [address] 17 Jul, 2013 [facility] [address] [id number] [address] [place] [address], [place] [address] 14 Jul, 2013 [facility] [address] [id number] [address] [place] [address], [place] [address] Jul, [facility] [address] [id number] [address] [place] [address], [place] [address] Jun, [facility] [address] [id number] [address] [place] [address], [place] [address] Jun, [facility] [address] [id number] [address] [place] [address], [place] [address] Jun, [facility] [address] [id number] [address] [place] [address], [place] [address] Apr, [facility] [address] [id number] [address] [place] [address], [place] [address] Apr, [facility] [address] [id number] [address] [place] [address], [place] [address] March, [facility] [address] [id number] [address] [place] [address], [place] [address] March, [facility] [address] [id number] [address] [place] [address], [place] [address] March, [facility] [address] [id number] [address] [place] [address], [place] [address] March, [facility] [address] [id number] [address] [place] [address], [place] [address] Feb, [facility] [address] [id number] [address] [place] [address], [place] [address] Jan, [facility] [address] [id number] [address] [place] [address], [place] [address] Dec, [facility] [address] [id number] [address] [place] [address], [place] [address] Dec, [facility] [address] [id number] [address] [place] [address], [place] [address] Dec, [facility] [address] [id number] [address] [place] [address], [place] [address] Nov, [facility] [address] [id number] [address] [place] [address], [place] [address] Oct, [facility] [address] [id number] [address] [place] [address], [place] [address] Oct, [facility] [address] [id number] [address] [place] [address], [place] [address] Sep, [facility] [address] [id number] [address] [place] [address], [place] [address] Sep, [facility] [address] [id number] [address] [place] [address], [place] [address] Sep, [facility] [address] [id number] [address] [place] [address], [place] [address] Sep, [facility] [address] [id number] [address] [place] [address], [place] [address] Sep, [facility] [address] [id number] [address] [place] [address], [place] [address] Sep, [facility] [address] [id number] [address] [place] [address], [place] [address] Sep, [facility] [address] [id number] [address] [place] [address], [place] [address] Aug, [facility] [address] [id number] [address] [place] [address], [place] [address] 16 Aug, 2012 [facility] [address] [id number] [address] [place] [address], [place] [address] Aug, [facility] [address] [id number] [address] [place] [address], [place] [address] Aug, [facility] [address] [id number] [address] [place] [address], [place] [address] Aug, [facility] [address] [id number] [address] [place] [address], [place] [address] Aug, [facility] [address] [id number] [address] [place] [address], [place] [address] Aug, [facility] [address] [id number] [address] [place] [address], [place] [address] Aug, [facility] [address] [id number] [address] [place] [address], [place] [address] Jul, [facility] [address] [id number] [address] [place] [address], [place] [address] Jul, [facility] [address] [id number] [address] [place] [address], [place] [address] Jun, [facility] [address] [id number] [address] [place] [address], [place] [address] May, [facility] [address] [id number] [address] [place] [address], [place] [address] Apr, [facility] [address] [id number] [address] [place] [address], [place] [address] Apr, [facility] [address] [id number] [address] [place] [address], [place] [address] Apr, [facility] [address] [id number] [address] [place] [address], [place] [address] March, [facility] [address] [id number] [address] [place] [address], [place] [address] March, [facility] [address] [id number] [address] [place] [address], [place] [address] March, [facility] [address] [id number] [address] [place] [address], [place] [address] March, [facility] [address] [id number] [address] [place] [address], [place] [address] March, [facility] [address] [id number] [address] [place] [address], [place] [address] March, [facility] [address] [id number] [address] [place] [address], [place] [address] March, [facility] [address] [id number] [address] [place] [address], [place] [address] Jan, [facility] [address] [id number] [address] [place] [address], [place] [address] Jan, [facility] [address] [id number] [address] [place] [address], [place] [address] 20 Jan, 2012 [facility] [address] [id number] [address] [place] [address], [place] [address] 13 Jan, 2012 [facility] [address] [id number] [address] [place] [address], [place] [address] Jan, [facility] [address] [id number] [address] [place] [address], [place] [address] 08 Dec, 2011 [facility] [address] [id number] [address] [place] [address], [place] [address] Dec, [facility] [address] [id number] [address] [place] [address], [place] [address] Nov, [facility] [address] [id number] [address] [place] [address], [place] [address] Nov, [facility] [address] [id number] [address] [place] [address], [place] [address] Nov, [facility] [address] [id number] [address] [place] [address], [place] [address] Nov, [facility] [address] [id number] [address] [place] [address], [place] [address] Oct, [facility] [address] [id number] [address] [place] [address], [place] [address] Oct, [facility] [address] [id number] [address] [place] [address], [place] [address] 14 Sep, 2011 [facility] [address] [id number] [address] [place] [address], [place] [address] 10 Sep, 2011 [facility] [address] [id number] [address] [place] [address], [place] [address] 10 Sep, 2011 [facility] [address] [id number] [address] [place] [address], [place] [address] 11 May, 2011 [facility] [address] [id number] [address] [place] [address], [place] [address] Nov, [facility] [address] [id number] [address] [place] [address], [place] [address] 29 Oct, 2010 [facility] [address] [id number] [address] [place] [address], [place] [address] 14 Oct, 2010 [facility] [address] [id number] [address] [place] [address], [place] [address] 08 Oct, 2010 [facility] [address] [id number] [address] [place] [address], [place] [address] 15 Sep, 2010 [facility] [address] [id number] [address] [place] [address], [place] [address] Sep, [facility] [address] [id number] [address] [place] [address], [place] [address] Aug, [facility] [address] [id number] [address] [place] [address], [place] [address] March, [facility] [address] [id number] [address] [place] [address], [place] [address] 17 Oct, 2009 [facility] [address] [id number] [address] [place] [address], [place] [address] 17 Oct, 2009 [facility] [address] [id number] [address] [place] [address], [place] [address] Oct, [facility] [address] [id number] [address] [place] [address], [place] [address] 02 Oct, 2009 [facility] [address] [id number] [address] [place] [address], [place] [address] Sep, [facility] [address] [id number] [address] [place] [address], [place] [address] Sep, [facility] [address] [id number] [address] [place], [place] [address] [address] Sep, [facility] [address] [facility] [id number] [address] [place] [address] Aug, [facility] [address] [facility] [id number] [address] [place] [address] Aug, [facility] [address] [facility] [id number] [address] [place] [address] Aug, [facility] [address] [facility] [id number] [address] [place] [address] Jan, IMMUNIZATIONS No Known Immunizations SOCIAL HISTORY [...]
--- OUTSIDE RECORDS SUMMARY | 2020-06-13 16:12 | XMS REPORT ---
Author Author Jah HASSAN Organization [facility] Address [address] [place] [address] Care Team Providers Care At Risk Paraprofessional Name Role Phone REINALDO HASSAN Unavailable PROBLEMS Type Condition ICD9-CM Code VRW37-AV Code Onset Dates Condition S tatus SNOMED Code Problem Hypothyroid E03.9 Active 55046865 Problem Neuropathy G62.9 Active 709573417 Problem Mixed hyperlipidemia E78.2 Active 093671530 Problem Overactive bladder N32.81 Active 2 30709501 Problem Irritable bowel syndrome with diarrhea K58.0 Active 157521656 Problem Gastroesophageal reflux disease with esophagitis K 21.0 Active 713173334 Problem Type 2 diabetes mellitus with hyperglycemia E11.65 Active 26673404 Problem manager terminal current use of insulin Z79.4 Active 093866791 Problem Current non-adherence to medical treatment Z91.19 Active 5414999 Problem Recurrent major depressive disorder, in partial remission F33.41 Active 12162352 Problem Chronic fatigue R53.82 Active 8422 9001 Problem 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 Active 845320412 Problem Pulmonary emphysema, unspecified emphysema type J4 3.9 Active 11339165 Problem Thrombocytosis D47.3 Active 58186 09 Problem Acquired hypothyroidism E03.9 Active 050297651 Problem Essential (primary) hypertension I10 Active 17288487 Problem Chronic pain G89.29 Active 4889832 1 Problem Anxiety disorder, unspecified type F41.9 Active 891921992 Problem Major depressive disorder, recurrent episode, moderate F33.1 Active 546390914 Problem Hypertriglyceridemia E78.1 Active 916211400 Problem Gastroparesis K31.84 Active 316574 006 ALLERGIES No Information ENCOUNTERS Encounter Location Date Diagnosis [facility] [address] [facility] [id number] [address] [address] May, Chronic pain G89.29 [facility] [address] [facility] [id number] [address] [place] [address] Apr, Poison maryam dermatitis L23.7 [facility] [address] [facility] [id number] [address] [place] [address] Apr, Chronic pain G89.29 [facility] [address] [facility] [id number] [address] [place] [address] March, Type 2 diabetes mellitus wit h hyperglycemia E11.65 [facility] [address] [facility] [id number] [address] [place] [address] March, Chronic pain G89.29 [facility] [address] [facility] [id number] [address] [place] [address] March, [address] [address] Feb, [facility] [address] [facility] [id number] [address] [place] [address] Feb, Other chronic pain G89.29 an d Chronic pain G89.29 [facility] [address] [facility] [id number] [address] [place] [address] Jan, Mixed hyperlipidemia E78.2 [facility] [address] [facility] [id number] [address] [place] [address] Jan, Chronic pain G89.29 [facility] [address] [facility] [id number] [address] [place] [address] Jan, Type 2 diabetes mellitus wit h hyperglycemia E11.65 ; Mixed hyperlipidemia E78.2 ; manager terminal current use of insulin Z79.4 ; Acquired hypothyroidism E03.9 and Essential (primary) hypertension I10 [facility] [address] [facility] [id number] [address] [place] [address] Dec, Chronic pain G89.29 [facility] [address] [facility] [id number] [address] [place] [address] Nov, Chronic pain G89.29 [facility] [address] [facility] [id number] [address] [place] [address] Nov, [facility] [address] [facility] [id number] [address] [place] [address] Oct, Chronic pain G89.29 [facility] [address] [facility] [id number] [address] [place] [address] Oct, [facility] [address] [facility] [id number] [address] [place] [address] Sep, [facility] [address] [place] [id number] [address] [place] [address] Sep, Type 2 diabetes mellitus wit h hyperglycemia E11.65 [place] [address] [place] [id number] [place] [address] Sep, Chronic pain G89.29 [facility] [address] [place] [id number] [address] [place] [address] Sep, [facility] [address] [place] [id number] [address] [place] [address] Sep, Type 2 diabetes mellitus wit h hyperglycemia E11.65 ; Irritable bowel syndrome with diarrhea K58.0 ; Gastroparesis K31.84 ; 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 and Dermatitis L30.9 [facility] [address] [place] [id number] [address] [place] [address] Aug, Chronic pain G89.29 [place] [address] [place] [id number] [address] [place] [address] Jul, Chronic pain G89.29 [facility] [address] [place] [id number] [address] [place] [address] Jun, Type 2 diabetes mellitus wit h hyperglycemia E11.65 ; Neuropathy G62.9 ; Recurrent major depressive disorder, in partial remission F33.41 ; Chronic pain G89.29 and Hypertriglyceridemia E78.1 [facility] [address] [place] [id number] [address] [place] [address] Jun, Hypothyroid E03.9 [place] [address] [id number] [address] [place] [address] Jun, Major depressive disorder, r ecurrent episode, moderate F33.1 and Anxiety disorder, unspecified type F41.9 [place] [address] [facility] [id number] [address] [place] [address] Jun, [place] [address] [facility] [id number] [address] [place] [address] Jun, Type 2 diabetes mellitus wit h hyperglycemia E11.65 ; manager terminal current use of insulin Z79.4 ; Recurrent major depressive disorder, in partial remission F33.41 ; Hypothyroid E03.9 ; Candidal dermatitis B37.2 and Weakness generalized R53.1 [place] [address] [facility] [id number] [address] [place] [address] May, [place] [address] [facility] [id number] [address] [place] [address] May, [place] [address] [facility] [id number] [address] [place] [address] May, [place] [address] [facility] [id number] [address] [place] [address] May, Generalized abdominal pain R 10.84 and Candidal dermatitis B37.2 [place] [address] [facility] [id number] [address] [place] [address] May, [place] [address] [facility] [id number] [address] [place] [address] May, [place] [address] [facility] [id number] [address] [place] [address] May, Nodular radiologic density R 93.8 ; Weight loss, unintentional R63.4 and Pulmonary emphysema, unspecified emphysema type J43.9 [place] [address] [facility] [id number] [address] [place] [address] May, Chronic pain G89.29 [place] [address] [facility] [id number] [address] [place] [address] May, Syncope and collapse R55 ; C hronic fatigue R53.[address] lung screening R91.8 [facility] [address] [id number] [address] [place] [address] May, [facility] [address] [id number] [address] [place] [address] Apr, Chronic fatigue R53.82 ; Abn ormal chest CT R93.8 ; Elevated erythrocyte sedimentation rate R70.0 ; Hypothyroid E03.9 and Recurrent major depressive disorder, in partial remission F33.41 [facility] [address] [id number] [address] [place] [address] Apr, Hypothyroid E03.9 [facility] [address] [id number] [address] [place] [address] Apr, Depression F32.9 [facility] [address] [id number] [address] [place] [address] Apr, [facility] [address] [id number] [address] [place] [address] March, [facility] [address] [id number] [address] [place] [address] March, Hypothyroid E03.9 [facility] [address] [id number] [address] [place] [address] March, Diabetes mellitus E11.9 and Hypothyroid E03.9 [facility] [address] [id number] [address] [place] [address] March, Diabetes mellitus E11.9 [facility] [address] [id number] [address] [place] [address] March, Hypothyroid E03.9 and Elevat ed liver enzymes R74.8 [facility] [address] [id number] [address] [place] [address] March, Type 2 diabetes mellitus wit h [...] major depressive disorder, in partial remission F33.41 [place] [address] [facility] [id number] [address] [place] [address] Feb, Chronic pain G89.29 [place] [address] [facility] [id number] [address] [place] [address] Feb, Type 2 diabetes mellitus wit h hyperglycemia E11.65 and Skin lesion of scalp L98.9 [place] [address] [facility] [id number] [address] [place] [address] Feb, [place] [address] [facility] [id number] [address] [place] [address] Jan, Type 2 diabetes mellitus wit h hyperglycemia E11.65 ; manager terminal current use of insulin Z79.4 ; Essential (primary) hypertension I10 ; Pulmonary emphysema, unspecified emphysema type J43.9 ; Chronic pain G89.29 ; Controlled substance agreement signed Z79.899 ; Hypothyroid E03.9 ; Neuropathy G62.9 ; Gastroesophageal reflux disease with esophagitis K21.0 ; Overactive bladder N32.81 ; Depression F32.9 and Irritable bowel syndrome with diarrhea K58.0 [place] [address] [facility] [id number] [address] [place] [address] Jan, [place] [address] [facility] [id number] [address] [place] [address] Jan, Controlled substance agreeme nt signed Z79.899 [place] [address] [facility] [id number] [address] [place] [address] Dec, Type 2 diabetes mellitus wit h [...] treatment Z91.19 and Overweight (BMI 25.0-29.9) E66.3 [place] [id number] [place] [address] 02 Dec, 2017 Controlled substance agreeme nt signed Z79.899 [place] [address] [address] Nov, Type 2 diabetes mellitus wit h hyperglycemia E11.65 and Current non- adherence to medical treatment Z91.19 [place] [address] [place] [id number] [place] [address] Nov, [place] [address] [address] Nov, Chronic pain G89.29 [place] [address] [place] [id number] [address] [place] [address] Nov, [place] [address] [address] Nov, Hypothyroid E03.9 [place] [address] [place] [id number] [place] [address] Nov, Hypothyroid E03.9 [place] [address] [place] [id number] [address] [place] [id number] Nov, Pulmonary emphysema, unspeci fied emphysema type J43.9 and Irritable bowel syndrome with diarrhea K58.0 [place] [address] [address] Oct, [place] [address] [place] [id number] [address] [place] [address] Oct, [place] [address] [address] Oct, [place] [address] [address] Oct, [place] [address] [address] Oct, Chronic pain G89.29 [place] [address] [address] Oct, Diabetes mellitus E11.9 ; De pression F32.9 ; Mixed hyperlipidemia E78.2 ; Hypotension, unspecified hypotension type I95.9 ; Pulmonary emphysema, unspecified emphysema type J43.9 and Weight loss, unintentional R63.[address] [address] Oct, Chronic pain G89.[address] [address] Sep, Chronic pain G89.[address] [address] Sep, Hypothyroid E03.9 and Diabet es mellitus E11.[address] [address] Aug, Type 2 diabetes mellitus wit h hyperglycemia E11.65 ; manager terminal current use of insulin Z79.4 ; Essential (primary) hypertension I10 ; Hypothyroid E03.9 ; Neuropathy G62.9 ; Chronic pain G89.29 ; Mixed hy perlipidemia E78.2 and Encounter for immunization Z23 [place] [address] [address] Aug, Chronic pain G89.[address] [address] Aug, Overactive bladder N32.81 ; Diabetes mellitus E11.9 and Chronic pain G89.[address] [address] Jul, [facility] [address] [id number] [address] [place] [address] Jun, [facility] [address] [id number] [address] [place] [address] Jun, [facility] [address] [facility] [id number] [address] [place] [address] Jun, Hypothyroid E03.9 [facility] [address] [facility] [id number] [address] [place] [address] Jun, Diabetes mellitus E11.9 ; Hy pothyroid E03.9 ; Neuropathy G62.9 ; Chronic pain G89.29 and Neck mass R22.1 [facility] [address] [facility] [id number] [address] [place] [address] Apr, [facility] [address] [facility] [id number] [address] [place] [address] Apr, Acute cystitis without hemat uria N30.00 [facility] [address] [id number] [address] [place] [address] March, [facility] [address] [facility] [id number] [address] [place] [address] March, [facility] [address] [facility] [id number] [address] [place] [address] March, Near syncope R55 [facility] [address] [facility] [id number] [address] [place] [id number] Feb, [facility] [address] [facility] [id number] [address] [place] [address] Feb, Chronic pain G89.29 [facility] [address] [id number] [address] [place] [address] Feb, [facility] [address] [facility] [id number] [address] [place] [address] Feb, [facility] [address] [facility] [id number] [address] [place] [address] Jan, Chronic pain G89.29 [facility] [address] [place] [id number] [address] [place] [address] Jan, [facility] [address] [address] 16 Jan, 2017 [facility] [address] [address] 14 Jan, 2017 Diabetes mellitus E11.9 ; Hy pothyroid E03.9 ; GERD (gastroesophageal reflux disease) K21.9 ; Insomnia G47.00 ; Functional 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 ; Neuropathy G62.9 ; Depression F32.9 ; Chronic pain G89.29 ; Irritable bowel syndrome with diarrhea K58.0 ; Overactive bladder N32.81 ; Mixed hyperlipidemia E78.2 and Bronchitis J40 [facility] [address] [address] Dec, [facility] [address] [address] Dec, [facility] [address] [address] Dec, [facility] [address] [address] Dec, [facility] [address] [address] Dec, Chronic pain G89.29 [facility] [address] [place] [id number] [address] [place] [address] Dec, [facility] [address] [address] Dec, [facility] [address] [address] Dec, Type 2 diabetes mellitus wit h foot ulcer E11.621 [facility] [address] [address] 17 Dec, 2016 Type 2 diabetes mellitus wit h foot ulcer E11.621 [place] [address] [place] [id number] [place] [address] 14 Dec, 2016 HTN (hypertension) I10 ; Dep ression F32.9 ; Type 2 diabetes mellitus with foot ulcer E11.621 ; Functional 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 ; Irritable bowel syndrome with diarrhea K58.0 ; Chronic pain G89.29 ; Insomnia G47.00 ; Overactive bladder N32.81 ; Mixed hyperlipidemia E78.2 ; Gastroesophageal reflux disease with esophagitis K21.0 and Acquired hypothyroidism E03.9 [place] [address] [address] Nov, [place] [address] [place] [id number] [place] [address] Oct, [place] [address] [address] Oct, [place] [address] [place] [id number] [address] [place] [address] Oct, [place] [address] [address] Sep, Functional 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 ; HTN (hypertension) I10 ; Diabetes mellitus E11.9 ; Depression F32.9 ; Overactive bladder N32.81 ; Mixed hyperlipidemia E78.2 ; Gastroesophageal reflux disease without esophagitis K21.9 ; Chronic pain G89.29 ; Insomnia G47.00 and Acquired hypothyroidism E03.9 [place] [address] [place] [address] Sep, [place] [address] [place] [id number] [place] [address] Aug, Encounter for immunization Z 23 [place] [address] [place] [id number] [place] [address] 06 Aug, 2016 [place] [address] [place] [id number] [place] [address] Jul, [place] [address] [address] Jun, Type 2 diabetes mellitus wit hout complications E11.9 ; HTN (hypertension) I10 ; Hypothyroid E03.9 ; Neuropathy G62.9 ; Depression F32.9 ; Chronic pain G89.29 ; GERD (gastroesophageal reflux disease) K21.9 ; Insomnia G47.00 ; Overactive bladder N32.81 ; Mixed hyperlipidemia E78.2 ; Diarrhea of infectious origin A09 and Environmental allergies Z91.09 [place] [address] [address] Apr, [place] [address] [address] March, Hypothyroidism, unspecified E03.9 and Mixed hyperlipidemia E78.2 [place] [address] [address] March, Diabetes mellitus E11.9 ; HT N (hypertension) I10 ; Hypothyroid E03.9 ; Depression F32.9 ; Overactive bladder N32.81 ; Other chronic pain G89.29 ; Lumbago with sciatica, unspecified side M54.40 ; Environmental allergies Z91.09 and Gastroesophageal reflux disease, esophagitis presence not specified K21.9 [place] [address] [address] March, [place] [address] [address] Jan, HTN (hypertension) I10 ; Hyp othyroid E03.9 ; Neuropathy G62.9 ; Diabetes mellitus E11.9 ; Chronic pain G89.29 ; GERD (gastroesophageal reflux disease) K21.9 ; Overactive bladder N32.81 and Depression F32.9 [place] [address] [address] Dec, Ear pain, left H92.02 ; HTN (hypertension) I10 ; Hypothyroid E03.9 ; Neuropathy G62.9 ; Diabetes mellitus E11.9 ; Depression F32.9 ; GERD (gastroesophageal reflux disease) K21.9 ; Insomnia G47.00 and Overactive bladder N32.81 [place] [address] [place] [address] Nov, Overactive bladder N32.81 an d Chronic pain G89.29 [place] [address] [place] [address] Nov, Kidney failure N19 [place] [address] [address] Nov, [place] [address] [address] Nov, [place] [address] [address] Nov, Diabetes mellitus E11.9 ; De pression F32.9 ; Chronic pain G89.29 ; GERD (gastroesophageal reflux disease) K21.9 ; Insomnia G47.00 ; HTN (hypertension) I10 ; Hypothyroid E03.9 ; COPD (chronic obstructive pulmonary disease) J44.9 ; Bladder incontinence R32 and Incontinence R32 [place] [address] [place] [id number] [address] [place] [address] Sep, Type 2 diabetes mellitus wit h foot ulcer E11.621 and Chromosomal abnormality, 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 [place] [address] [place] [address] Sep, [place] [address] [place] [id number] [address] [place] [address] Aug, [place] [address] [address] Aug, [place] [address] [place] [id number] [address] [place] [address] Aug, HTN (hypertension) I10 ; Enc ounter for immunization Z23 ; Hypothyroid E03.9 ; Neuropathy G62.9 ; Diabetes mellitus E11.9 ; Depression F32.9 ; Chronic pain G89.29 ; GERD (gastroesophageal reflux disease) K21.9 ; Insomnia G47.00 and COPD (chronic obstructive pulmonary disease) J44.9 [place] [address] [address] Jun, [address] [address] Jun, [place] [address] [address] May, Essential hypertension, ivis gn 401.1 ; Unspecified hypothyroidism 244.9 ; Insomnia, unspecified 780.52 ; Shortness of breath 786.05 ; Depression 311 ; COPD (chronic obstructive pulmonary disease) 496 ; GERD (gastroesophageal reflux disease) 530.81 and Diabetes 1.5, 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 [address] May, [address] [address] May, [address] [address] May, Shortness of breath 786.05 ; Essential hypertension, benign 401.1 ; Diabetes mellitus 250.00 ; Hyperlipidemia 272.4 ; Hypothyroid 244.9 ; Insomnia 780.52 and Cough 786.[address] [address] Apr, [address] [address] March, Shortness of breath 786.05 ; Nausea with vomiting 787.01 ; Essential hypertension, benign 401.1 ; Diabetes mellitus 250.00 ; Hyperlipidemia 272.4 and Hypothyroid 244.[address] [address] Feb, [place] [id number] [place] [address], [place] [address] 13 Feb, 2015 [facility] [address] [id number] [address] [place] [address], [place] [id number] Jan, [facility] [address] [id number] [address] [place] [address], [place] [id number] Jan, [facility] [address] [id number] [address] [place] [address], [place] [id number] Jan, [facility] [address] [id number] [address] [place] [address], [place] [id number] Jan, [facility] [address] [id number] [address] [place] [address], [place] [id number] Jan, [facility] [address] [id number] [address] [place] [address], [place] [id number] Jan, [facility] [address] [id number] [address] [place] [address], [place] [id number] Jan, [facility] [address] [id number] [address] [place] [address], [place] [id number] Jan, [facility] [address] [id number] [address] [place] [address], [place] [id number] Jan, [facility] [address] [id number] [address] [place] [address], [place] [id number] Jan, [facility] [address] [id number] [address] [place] [address], [place] [id number] Dec, [facility] [address] [id number] [address] [place] [address], [place] [id number] Dec, [facility] [address] [id number] [address] [place] [address], [place] [id number] Dec, 2014 [facility] [address] [id number] [address] [place] [address] [address] Dec, 2014 [facility] [address] [id number] [address] [place] [address], [place] [address] Dec, 2014 [facility] [address] [id number] [address] [place] [address], [place] [address] Dec, 2014 [facility] [address] [id number] [address] [place] [address], [place] [address] Dec, 2014 [facility] [address] [id number] [address] [place] [address], [place] [address] Dec, 2014 [facility] [address] [id number] [address] [place] [address], [place] [address] Dec, 2014 [facility] [address] [id number] [address] [place] [address], [place] [address] Dec, 2014 [facility] [address] [id number] [address] [place] [address], [place] [address] Oct, [facility] [address] [id number] [address] [place] [address], [place] [address] Oct, [facility] [address] [id number] [address] [place] [address], [place] [address] Oct, [facility] [address] [id number] [address] [place] [address], [place] [address] Oct, [facility] [address] [id number] [address] [place] [address], [place] [address] Oct, [facility] [address] [id number] [address] [place] [address], [place] [address] Oct, [facility] [address] [id number] [address] [place] [address], [place] [address] Oct, [facility] [address] [id number] [address] [place] [address], [place] [address] Oct, [facility] [address] [id number] [address] [place] [address], [place] [address] Oct, [facility] [address] [id number] [address] [place] [address], [place] [address] Oct, [facility] [address] [id number] [address] [place] [address], [place] [address] Oct, [facility] [address] [id number] [address] [place] [address], [place] [address] Oct, [facility] [address] [id number] [address] [place] [address], [place] [address] Oct, [facility] [address] [id number] [address] [place] [address], [place] [address] Oct, [facility] [address] [id number] [address] [place] [address], [place] [address] Sep, [facility] [address] [id number] [address] [place] [address], [place] [address] Sep, [facility] [address] [id number] [address] [place] [address], [place] [address] Sep, [facility] [address] [id number] [address] [place] [address], [place] [address] Sep, [facility] [address] [id number] [address] [place] [address], [place] [address] Sep, [facility] [address] [id number] [address] [place] [address], [place] [address] Sep, [facility] [address] [id number] [address] [place] [address], [place] [address] Sep, [facility] [address] [id number] [address] [place] [address], [place] [address] Sep, [facility] [address] [id number] [address] [place] [address], [place] [address] Sep, [facility] [address] [id number] [address] [place] [address], [place] [address] Aug, [facility] [address] [id number] [address] [place] [address], [place] [address] Aug, [facility] [address] [id number] [address] [place] [address], [place] [address] Aug, [facility] [address] [id number] [address] [place] [address], [place] [address] 17 Aug, 2014 [facility] [address] [id number] [address] [place] [address], [place] [address] 16 Aug, 2014 [facility] [address] [id number] [address] [place] [address], [place] [address] Aug, [facility] [address] [id number] [address] [place] [address], [place] [address] Aug, [facility] [address] [id number] [address] [place] [address], [place] [address] Aug, [facility] [address] [id number] [address] [place] [address], [place] [address] Aug, [facility] [address] [id number] [address] [place] [address], [place] [address] 29 Jul, 2014 [facility] [address] [id number] [address] [place] [address], [place] [address] 29 Jul, 2013 [facility] [address] [id number] [address] [place] [address], [place] [address] 25 Jul, 2013 [facility] [address] [id number] [address] [place] [address], [place] [address] 25 Jul, 2013 [facility] [address] [id number] [address] [place] [address], [place] [address] 25 Jul, 2013 [facility] [address] [id number] [address] [place] [address], [place] [address] 25 Jul, 2013 [facility] [address] [id number] [address] [place] [address], [place] [address] 25 Jul, 2013 [facility] [address] [id number] [address] [place] [address], [place] [address] 25 Jul, 2013 [facility] [address] [id number] [address] [place] [address], [place] [address] 02 Jul, 2013 [facility] [address] [id number] [address] [place] [address] [place] [address] Jul, [facility] [address] [id number] [facility] [place] [place] [address] Jun, [facility] [address] [id number] [facility] [place] [address] Jun, [facility] [address] [id number] [address] [place] [address], [place] [address] Jun, [facility] [address] [id number] [address] [place] [address], [place] [address] Jun, [facility] [address] [id number] [address] [place] [address], [place] [address] Jun, [facility] [address] [id number] [address] [place] [address], [place] [address] Jun, [facility] [address] [id number] [address] [place] [address], [place] [address] Jun, [facility] [address] [id number] [address] [place] [address], [place] [address] Jun, [facility] [address] [id number] [address] [place] [address], [place] [address] Jun, [facility] [address] [id number] [address] [place] [address], [place] [address] Jun, [facility] [address] [id number] [address] [place] [address], [place] [address] Jun, [facility] [address] [id number] [address] [place] [address], [place] [address] Jun, [facility] [address] [id number] [address] [place] [address], [place] [address] May, [facility] [address] [id number] [address] [place] [address], [place] [address] May, [facility] [address] [id number] [address] [place] [address], [place] [address] May, [facility] [address] [id number] [facility] [place] [address] May, [facility] [address] [id number] [address] [place] [address], [place] [address] May, [facility] [address] [id number] [address] [place] [address], [place] [address] May, [facility] [address] [id number] [address] [place] [address], [place] [address] March, [facility] [address] [id number] [address] [place] [address], [place] [address] March, [facility] [address] [id number] [address] [place] [address], [place] [address] March, [facility] [address] [id number] [address] [place] [address], [place] [address] March, [facility] [address] [id number] [address] [place] [address], [place] [address] March, [facility] [address] [id number] [address] [place] [address], [place] [address] March, [facility] [address] [id number] [address] [place] [address], [place] [address] Feb, [facility] [address] [id number] [address] [place] [address], [place] [address] Feb, [facility] [address] [id number] [address] [place] [address], [place] [address] Feb, [facility] [address] [id number] [address] [place] [address], [place] [address] Feb, [facility] [address] [id number] [address] [place] [address], [place] [address] Jan, [facility] [address] [id number] [address] [place] [address], [place] [address] Jan, [facility] [address] [id number] [address] [place] [address], [place] [address] Jan, [facility] [address] [id number] [facility] [place] [address] Jan, [facility] [address] [id number] [address] [place] [address], [place] [address] Jan, [facility] [address] [id number] [facility] [place] [address] Jan, [facility] [address] [id number] [address] [place] [address], [place] [address] Jan, [facility] [address] [id number] [address] [place] [address], [place] [address] Jan, [facility] [address] [id number] [address] [place] [address], [place] [address] Jan, [facility] [address] [id number] [address] [place] [address], [place] [address] Jan, [facility] [address] [id number] [address] [place] [address], [place] [address] Jan, [facility] [address] [id number] [address] [place] [address], [place] [address] Jan, [facility] [address] [id number] [address] [place] [address], [place] [address] Dec, [facility] [address] [id number] [address] [place] [address], [place] [address] Dec, [facility] [address] [id number] [address] [place] [address], [place] [address] Dec, [facility] [address] [id number] [address] [place] [address], [place] [address] Dec, [facility] [address] [id number] [address] [place] [address], [place] [address] Dec, [facility] [address] [id number] [address] [place] [address], [place] [address] Dec, [facility] [address] [id number] [address] [place] [address], [place] [address] Nov, [facility] [address] [id number] [address] [place] [address], [place] [address] Nov, [facility] [address] [id number] [address] [place] [address], [place] [address] Oct, [facility] [address] [id number] [address] [place] [address], [place] [address] Oct, [facility] [address] [id number] [address] [place] [address], [place] [address] Oct, [facility] [address] [id number] [address] [place] [address], [place] [address] Oct, [facility] [address] [id number] [address] [place] [address], [place] [address] Oct, [facility] [address] [id number] [address] [place] [address], [place] [address] Oct, [facility] [address] [id number] [address] [place] [address], [place] [address] Sep, [facility] [address] [id number] [address] [place] [address], [place] [address] Sep, [facility] [address] [id number] [address] [place] [address], [place] [address] Sep, [facility] [address] [id number] [address] [place] [address], [place] [address] Sep, [facility] [address] [id number] [address] [place] [address], [place] [address] Aug, [facility] [address] [id number] [address] [place] [address], [place] [address] Aug, [facility] [address] [id number] [address] [place] [address], [place] [address] Aug, [facility] [address] [id number] [address] [place] [address], [place] [address] 17 Jul, 2013 [facility] [address] [id number] [address] [place] [address], [place] [address] 14 Jul, 2013 [facility] [address] [id number] [address] [place] [address], [place] [address] 04 Jul, 2013 [facility] [address] [id number] [address] [place] [address], [place] [address] Jun, [facility] [address] [id number] [address] [place] [address], [place] [address] Jun, [facility] [address] [id number] [address] [place] [address], [place] [address] Jun, [facility] [address] [id number] [address] [place] [address], [place] [address] Apr, [facility] [address] [id number] [address] [place] [address], [place] [address] Apr, [facility] [address] [id number] [address] [place] [address], [place] [address] March, [facility] [address] [id number] [address] [place] [address], [place] [address] March, [facility] [address] [id number] [address] [place] [address], [place] [address] March, [facility] [address] [id number] [address] [place] [address], [place] [address] March, [facility] [address] [id number] [address] [place] [address], [place] [address] Feb, [facility] [address] [id number] [address] [place] [address], [place] [address] Jan, [facility] [address] [id number] [address] [place] [address], [place] [address] Dec, [facility] [address] [id number] [address] [place] [address], [place] [address] Dec, [facility] [address] [id number] [address] [place] [address], [place] [address] 07 Dec, 2012 [facility] [address] [id number] [address] [place] [address], [place] [address] Nov, [facility] [address] [id number] [address] [place] [address], [place] [address] Oct, [facility] [address] [id number] [address] [place] [address], [place] [address] Oct, [facility] [address] [id number] [address] [place] [address], [place] [address] Sep, [facility] [address] [id number] [address] [place] [address], [place] [address] Sep, [facility] [address] [id number] [address] [place] [address], [place] [address] Sep, [facility] [address] [id number] [address] [place] [address], [place] [address] Sep, [facility] [address] [id number] [address] [place] [address], [place] [address] Sep, [facility] [address] [id number] [address] [place] [address], [place] [address] Sep, [facility] [address] [id number] [address] [place] [address], [place] [address] Sep, [facility] [address] [id number] [address] [place] [address], [place] [address] Aug, [facility] [address] [id number] [address] [place] [address], [place] [address] 16 Aug, 2012 [facility] [address] [id number] [address] [place] [address], [place] [address] Aug, [facility] [address] [id number] [address] [place] [address], [place] [address] Aug, [facility] [address] [id number] [address] [place] [address], [place] [address] Aug, [facility] [address] [id number] [address] [place] [address], [place] [address] Aug, [facility] [address] [id number] [address] [place] [address], [place] [address] Aug, [facility] [address] [id number] [address] [place] [address], [place] [address] Aug, [facility] [address] [id number] [address] [place] [address], [place] [address] Jul, [facility] [address] [id number] [address] [place] [address], [place] [address] Jul, [facility] [address] [id number] [address] [place] [address], [place] [address] Jun, [facility] [address] [id number] [address] [place] [address], [place] [address] May, [facility] [address] [id number] [address] [place] [address], [place] [address] Apr, [facility] [address] [id number] [address] [place] [address], [place] [address] Apr, [facility] [address] [id number] [address] [place] [address], [place] [address] Apr, [facility] [address] [id number] [address] [place] [address], [place] [address] March, [facility] [address] [id number] [address] [place] [address], [place] [address] March, [facility] [address] [id number] [address] [place] [address], [place] [address] March, [facility] [address] [id number] [address] [place] [address], [place] [address] March, [facility] [address] [id number] [address] [place] [address], [place] [address] March, [facility] [address] [id number] [address] [place] [address], [place] [address] March, [facility] [address] [id number] [address] [place] [address], [place] [address] March, [facility] [address] [id number] [address] [place] [address], [place] [address] Jan, [facility] [address] [id number] [address] [place] [address], [place] [address] Jan, [facility] [address] [id number] [address] [place] [address], [place] [address] Jan, [facility] [address] [id number] [address] [place] [address], [place] [id number] Jan, [facility] [address] [id number] [address] [place] [address], [place] [id number] Jan, [facility] [address] [id number] [address] [place] [address], [place] [id number] Dec, [facility] [address] [id number] [address] [place] [address], [place] [id number] Dec, [facility] [address] [id number] [address] [place] [address], [place] [id number] Nov, [facility] [address] [id number] [address] [place] [address], [place] [id number] Nov, [facility] [address] [id number] [address] [place] [address], [place] [id number] Nov, [facility] [address] [id number] [address] [place] [address], [place] [id number] Nov, [facility] [address] [id number] [address] [place] [address], [place] [id number] Oct, [facility] [address] [id number] [address] [place] [address], [place] [id number] Oct, [facility] [address] [id number] [address] [place] [address], [place] [id number] 14 Sep, 2011 [facility] [address] [id number] [address] [place] [address], [place] [id number] 10 Sep, 2011 [facility] [address] [id number] [address] [place] [address], [place] [id number] 10 Sep, 2011 [facility] [address] [id number] [address] [place] [address], [place] [id number] 11 May, 2011 [facility] [address] [id number] [address] [place] [address], [place] [id number] 20 Nov, 2010 [facility] [address] [id number] [address] [place] [address], [place] [id number] 29 Oct, 2010 [facility] [address] [id number] [address] [place] [address], [place] [id number] 14 Oct, 2010 [facility] [address] [id number] [address] [place] [address], [place] [id number] 08 Oct, 2010 [facility] [address] [id number] [address] [place] [address], [place] [id number] 15 Sep, 2010 [facility] [address] [id number] [address] [place] [address], [place] [id number] 02 Sep, 2010 [facility] [address] [id number] [address] [place] [address], [place] [id number] Aug, [facility] [address] [id number] [address] [place] [address], [place] [id number] March, [facility] [address] [id number] [address] [place] [address], [place] [id number] 17 Oct, 2009 [facility] [address] [id number] [address] [place] [address], [place] [id number] 17 Oct, 2009 [facility] [address] [id number] [address] [place] [address], [place] [id number] 10 Oct, 2009 [facility] [address] [id number] [address] [place] [address], [place] [id number] 02 Oct, 2009 [facility] [address] [id number] [address] [place] [address] [address] Sep, [facility] [address] [facility] [id number] [address] [place] [id number] Sep, [facility] [address] [facility] [id number] [address] [place] [id number] Sep, [facility] [address] [facility] [id number] [address] [place] [id number] Aug, [facility] [address] [facility] [id number] [address] [place] [id number] Aug, [facility] [address] [facility] [id number] [address] [place] [id number] Aug, [facility] [address] [facility] [id number] [address] [place] [id number] Jan, IMMUNIZATIONS No Known Immunizations SOCIAL HISTORY Never Assessed REASON FOR VISIT PLAN OF CARE VITAL SIGNS Height 69 in 2015-01-05 Weight 214 lbs 2015-01-05 Temperature 98.8 degrees Fahrenheit 2015-01-05 Heart Rate 74 bpm 2015-01-05 Respiratory Rate 20 2015-01-05 Blood pressure systolic 130 mmHg 2015-01-05 Blood pressure diastolic 78 mmHg 2015-01-05 MEDICATIONS Unknown Medications RESULTS No Results PROCEDURES [...]
--- OUTSIDE RECORDS SUMMARY | 2020-06-13 16:13 | XMS REPORT ---
Author Author Jah Durant Doctor Organization [facility] Address Unknown Phone Unavailable Care Team Providers Care Shear Scrapman Name Role Phone Migration, Doctor Unavailable Unavailable PROBLEMS Type Condition ICD9-CM Code WLX10-CZ Code Onset Dates Condition S tatus SNOMED Code Problem Hypothyroid E03.9 Active 49225190 Problem Neuropathy G62.9 Active 609859490 Problem Mixed hyperlipidemia E78.2 Active 851355742 Problem Overactive bladder N32.81 Active 2 93849535 Problem Irritable bowel syndrome with diarrhea K58.0 Active 957448514 Problem Gastroesophageal reflux disease with esophagitis K 21.0 Active 756523419 Problem Type 2 diabetes mellitus with hyperglycemia E11.65 Active 62622431 Problem MCC current use of insulin Z79.4 Active 084051607 Problem Current non-adherence to medical treatment Z91.19 Active 5403459 Problem Recurrent major depressive disorder, in partial remission F33.41 Active 51963593 Problem Chronic fatigue R53.82 Active 8422 9001 Problem 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 Active 917791040 Problem Pulmonary emphysema, unspecified emphysema type J4 3.9 Active 30900835 Problem Thrombocytosis D47.3 Active 84815 09 Problem Acquired hypothyroidism E03.9 Active 407142167 Problem Essential (primary) hypertension I10 Active 03689140 Problem Chronic pain G89.29 Active 5448571 1 Problem Anxiety disorder, unspecified type F41.9 Active 929950642 Problem Major depressive disorder, recurrent episode, moderate F33.1 Active 117414582 Problem Hypertriglyceridemia E78.1 Active 209234005 Problem Gastroparesis K31.84 Active 083115 006 ALLERGIES Substance Reaction Event Type Date Status Metformin 500 Mg Tablet,er Abiodun.retention 24 Hr Unknown Non Drug Allergy Feb, Active Niacin 500 Mg Capsule, Extended Release Unknown Non Drug Aller gy Feb, Active ENCOUNTERS Encounter Location Date Diagnosis [facility] [address] [facility] [id number] [address] [place] [address] Apr, Chronic pain G89.29 [facility] [address] [facility] [id number] [address] [place] [address] March, Type 2 diabetes mellitus wit h hyperglycemia E11.65 [facility] [address] [facility] [id number] [address] [place] [address] March, Chronic pain G89.29 [facility] [address] [facility] [id number] [address] [place] [address] March, [address] [address] Feb, [facility] [address] [facility] [id number] [address] [place] [address] Feb, Other chronic pain G89.29 an d Chronic pain G89.29 [facility] [address] [facility] [id number] [address] [place] [address] Jan, Mixed hyperlipidemia E78.2 [facility] [address] [facility] [id number] [address] [place] [address] Jan, Chronic pain G89.29 [facility] [address] [facility] [id number] [address] [place] [address] Jan, Type 2 diabetes mellitus wit h hyperglycemia E11.65 ; Mixed hyperlipidemia E78.2 ; MCC current use of insulin Z79.4 ; Acquired hypothyroidism E03.9 and Essential (primary) hypertension I10 [facility] [address] [facility] [id number] [address] [place] [address] Dec, Chronic pain G89.29 [facility] [address] [facility] [id number] [address] [place] [address] Nov, Chronic pain G89.29 [facility] [address] [facility] [id number] [address] [place] [address] Nov, [facility] [address] [facility] [id number] [address] [place] [address] Oct, Chronic pain G89.29 [facility] [address] [place] [id number] [address] [place] [address] Oct, [facility] [address] [address] Sep, [place] [address] [address] Sep, Type 2 diabetes mellitus wit h hyperglycemia E11.65 [place] [address] [address] Sep, Chronic pain G89.29 [place] [address] [address] Sep, [place] [address] [address] Sep, Type 2 diabetes mellitus wit h hyperglycemia E11.65 ; Irritable bowel syndrome with diarrhea K58.0 ; Gastroparesis K31.84 ; 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 and Dermatitis L30.9 [place] [address] [address] Aug, Chronic pain G89.29 [place] [address] [address] Jul, Chronic pain G89.29 [place] [address] [address] Jun, Type 2 diabetes mellitus wit h hyperglycemia E11.65 ; Neuropathy G62.9 ; Recurrent major depressive disorder, in partial remission F33.41 ; Chronic pain G89.29 and Hypertriglyceridemia E78.1 [place] [address] [place] [id number] [address] [place] [address] Jun, Hypothyroid E03.9 [place] [address] [place] [id number] [place] [address] Jun, Major depressive disorder, r ecurrent episode, moderate F33.1 and Anxiety disorder, unspecified type F41.9 [place] [address] [place] [id number] [address] [place] [address] Jun, [facility] [address] [place] [id number] [place] [address] Jun, Type 2 diabetes mellitus wit h hyperglycemia E11.65 ; continuous churn buttermaker current use of insulin Z79.4 ; Recurrent major depressive disorder, in partial remission F33.41 ; Hypothyroid E03.9 ; Candidal dermatitis B37.2 and Weakness generalized R53.1 [facility] [address] [place] [id number] [address] [place] [address] May, [facility] [address] [facility] [id number] [address] [place] [address] May, [place] [address] [place] [id number] [address] [place] [address] May, [place] [address] [place] [id number] [place] [phone] May, Generalized abdominal pain R 10.84 and Candidal dermatitis B37.2 [place] [address] [place] [id number] [address] [place] [phone] May, [place] [address] [place] [id number] [place] [address] May, [place] [address] [place] [id number] [place] [address] May, Nodular radiologic density R 93.8 ; Weight loss, unintentional R63.4 and Pulmonary emphysema, unspecified emphysema type J43.9 [place] [address] [place] [id number] [address] [place] [address] May, Chronic pain G89.29 [place] [address] [place] [id number] [address] [place] [address] May, Syncope and collapse R55 ; C hronic fatigue R53.[address] lung screening R91.8 [place] [address] [place] [id number] [place] [address] May, [facility] [address] [id number] [address] [place] [address] Apr, Chronic fatigue R53.82 ; Abn ormal chest CT R93.8 ; Elevated erythrocyte sedimentation rate R70.0 ; Hypothyroid E03.9 and Recurrent major depressive disorder, in partial remission F33.41 [facility] [address] [id number] [address] [place] [address] Apr, Hypothyroid E03.9 [facility] [address] [id number] [address] [place] [address] Apr, Depression F32.9 [facility] [address] [facility] [id number] [address] [place] [address] Apr, [facility] [address] [facility] [id number] [address] [place] [address] March, [facility] [address] [facility] [id number] [address] [place] [address] March, Hypothyroid E03.9 [facility] [address] [facility] [id number] [address] [place] [address] March, Diabetes mellitus E11.9 and Hypothyroid E03.9 [facility] [address] [facility] [id number] [address] [place] [address] March, Diabetes mellitus E11.9 [place] [address] [facility] [id number] [address] [place] [address] March, Hypothyroid E03.9 and Elevat ed liver enzymes R74.8 [facility] [address] [facility] [id number] [address] [place] [address] March, Type 2 diabetes mellitus wit h hyperglycemia E11.65 ; continuous churn buttermaker current use of insulin Z79.4 ; Pulmonary emphysema, unspecified emphysema type J43.9 ; Hypothyroid E03.9 ; Neuropathy G62.9 ; Mixed hyperlipidemia E78.2 ; Chronic pain G89.29 ; Gastroesophageal reflux disease with esophagitis K21.0 ; Irritable bowel syndrome with diarrhea K58.0 ; Overactive bladder N32.81 and Recurrent major depressive disorder, in partial remission F33.41 [place] [address] [address] Feb, Chronic pain G89.29 [place] [address] [address] Feb, Type 2 diabetes mellitus wit h hyperglycemia E11.65 and Skin lesion of scalp L98.9 [place] [address] [address] Feb, [place] [address] [address] Jan, Type 2 diabetes mellitus wit h hyperglycemia E11.65 ; continuous churn buttermaker current use of insulin Z79.4 ; Essential (primary) hypertension I10 ; Pulmonary emphysema, unspecified emphysema type J43.9 ; Chronic pain G89.29 ; Controlled substance agreement signed Z79.899 ; Hypothyroid E03.9 ; Neuropathy G62.9 ; Gastroesophageal reflux disease with esophagitis K21.0 ; Overactive bladder N32.81 ; Depression F32.9 and Irritable bowel syndrome with diarrhea K58.0 [place] [address] [address] Jan, [place] [address] [address] Jan, Controlled substance agreeme nt signed Z79.899 [place] [address] [address] Dec, Type 2 diabetes mellitus wit h [...] 25.0-29.9) E66.3 [facility] [address] [place] [address] Dec, Controlled substance agreeme nt signed Z79.899 [facility] [address] [place] [id number] [address] [place] [address] Nov, Type 2 diabetes mellitus wit h hyperglycemia E11.65 and Current non- adherence to medical treatment Z91.19 [place] [address] [place] [id number] [address] [place] [address] Nov, [place] [address] [address] Nov, Chronic pain G89.29 [place] [address] [place] [id number] [place] [address] Nov, [place] [address] [address] Nov, Hypothyroid E03.9 [place] [address] [place] [id number] [address] [place] [address] Nov, Hypothyroid E03.9 [place] [address] [place] [id number] [place] [address] Nov, Pulmonary emphysema, unspeci fied emphysema type J43.9 and Irritable bowel syndrome with diarrhea K58.0 [place] [address] [place] [id number] [address] [place] [address] Oct, [place] [address] [place] [id number] [address] [place] [phone] Oct, [place] [address] [address] Oct, [place] [address] [place] [id number] [address] [place] [address] Oct, [place] [address] [place] [id number] [place] [address] Oct, Chronic pain G89.29 [place] [address] [place] [id number] [address] [place] [address] Oct, Diabetes mellitus E11.9 ; De pression F32.9 ; Mixed hyperlipidemia E78.2 ; Hypotension, unspecified hypotension type I95.9 ; Pulmonary emphysema, unspecified emphysema type J43.9 and Weight loss, unintentional R63.4 [place] [address] [address] Oct, Chronic pain G89.29 [place] [address] [address] Sep, Chronic pain G89.29 [place] [address] [address] Sep, Hypothyroid E03.9 and Diabet es mellitus E11.9 [place] [address] [address] Aug, Type 2 diabetes mellitus wit h hyperglycemia E11.65 ; continuous churn buttermaker current use of insulin Z79.4 ; Essential (primary) hypertension I10 ; Hypothyroid E03.9 ; Neuropathy G62.9 ; Chronic pain G89.29 ; Mixed hy perlipidemia E78.2 and Encounter for immunization Z23 [place] [address] [address] Aug, Chronic pain G89.29 [place] [address] [address] Aug, Overactive bladder N32.81 ; Diabetes mellitus E11.9 and Chronic pain G89.29 [place] [address] [place] [id number] [place] [address] Jul, [place] [address] [place] [id number] [place] [address] Jun, [place] [address] [address] Jun, [facility] [address] [facility] [id number] [address] [place] [address] Jun, Hypothyroid E03.9 [facility] [address] [facility] [id number] [address] [place] [address] Jun, Diabetes mellitus E11.9 ; Hy pothyroid E03.9 ; Neuropathy G62.9 ; Chronic pain G89.29 and Neck mass R22.1 [facility] [address] [id number] [address] [place] [address] Apr, [facility] [address] [facility] [id number] [address] [place] [phone] Apr, Acute cystitis without hemat uria N30.00 [facility] [address] [facility] [id number] [address] [place] [phone] March, [facility] [address] [facility] [id number] [address] [place] [id number] March, [facility] [address] [facility] [id number] [address] [place] [address] March, Near syncope R55 [facility] [address] [facility] [id number] [address] [place] [address] Feb, [facility] [address] [facility] [id number] [address] [place] [address] Feb, Chronic pain G89.29 [facility] [address] [facility] [id number] [address] [place] [phone] Feb, [facility] [address] [facility] [id number] [address] [place] [address] Feb, [facility] [address] [facility] [id number] [address] [place] [address] Jan, Chronic pain G89.29 [facility] [address] [facility] [id number] [address] [place] [phone] Jan, [facility] [address] [facility] [id number] [address] [place] [address] 16 Jan, 2017 [facility] [address] [facility] [id number] [address] [place] [address] 14 Jan, 2017 Diabetes mellitus E11.9 ; Hy pothyroid E03.9 ; GERD (gastroesophageal reflux disease) K21.9 ; Insomnia G47.00 ; Functional 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 ; Neuropathy G62.9 ; Depression F32.9 ; Chronic pain G89.29 ; Irritable bowel syndrome with diarrhea K58.0 ; Overactive bladder N32.81 ; Mixed hyperlipidemia E78.2 and Bronchitis J40 [facility] [address] [facility] [id number] [address] [place] [address] Dec, [facility] [address] [place] [id number] [place] [address] 24 Dec, 2016 [facility] [address] [place] [id number] [address] [place] [address] Dec, [facility] [address] [place] [id number] [address] [place] [phone] 24 Dec, 2016 [facility] [address] [facility] [id number] [address] [place] [address] Dec, Chronic pain G89.29 [facility] [address] [facility] [id number] [address] [place] [address] 23 Dec, 2016 [facility] [address] [place] [id number] [address] [place] [address] 20 Dec, 2016 [facility] [address] [facility] [id number] [address] [place] [id number] 17 Dec, 2016 Type 2 diabetes mellitus wit h foot ulcer E11.621 [facility] [address] [place] [id number] [address] [place] [address] 17 Dec, 2016 Type 2 diabetes mellitus wit h foot ulcer E11.621 [facility] [address] [place] [id number] [address] [place] [address] 14 Dec, 2016 HTN (hypertension) I10 ; Dep ression F32.9 ; Type 2 diabetes mellitus with foot ulcer E11.621 ; Functional 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 ; Irritable bowel syndrome with diarrhea K58.0 ; Chronic pain G89.29 ; Insomnia G47.00 ; Overactive bladder N32.81 ; Mixed hyperlipidemia E78.2 ; Gastroesophageal reflux disease with esophagitis K21.0 and Acquired hypothyroidism E03.9 [place] [address] [place] [id number] [place] [address] Nov, [place] [address] [place] [id number] [address] [place] [address] Oct, [place] [address] [place] [id number] [place] [phone] Oct, [place] [address] [place] [id number] [place] [address] Oct, [place] [address] [place] [id number] [place] [address] Sep, Functional 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 ; HTN (hypertension) I10 ; Diabetes mellitus E11.9 ; Depression F32.9 ; Overactive bladder N32.81 ; Mixed hyperlipidemia E78.2 ; Gastroesophageal reflux disease without esophagitis K21.9 ; Chronic pain G89.29 ; Insomnia G47.00 and Acquired hypothyroidism E03.9 [place] [address] [place] [id number] [address] [place] [address] Sep, [place] [address] [place] [id number] [address] [place] [phone] Aug, Encounter for immunization Z 23 [place] [address] [place] [id number] [address] [place] [phone] Aug, [place] [address] [place] [id number] [address] [place] [phone] Jul, [place] [address] [place] [id number] [address] [place] [address] Jun, Type 2 diabetes mellitus wit hout complications E11.9 ; HTN (hypertension) I10 ; Hypothyroid E03.9 ; Neuropathy G62.9 ; Depression F32.9 ; Chronic pain G89.29 ; GERD (gastroesophageal reflux disease) K21.9 ; Insomnia G47.00 ; Overactive bladder N32.81 ; Mixed hyperlipidemia E78.2 ; Diarrhea of infectious origin A09 and Environmental allergies Z91.09 [place] [address] [address] Apr, [place] [address] [address] March, Hypothyroidism, unspecified E03.9 and Mixed hyperlipidemia E78.2 [place] [address] [address] March, Diabetes mellitus E11.9 ; HT N (hypertension) I10 ; Hypothyroid E03.9 ; Depression F32.9 ; Overactive bladder N32.81 ; Other chronic pain G89.29 ; Lumbago with sciatica, unspecified side M54.40 ; Environmental allergies Z91.09 and Gastroesophageal reflux disease, esophagitis presence not specified K21.9 [place] [address] [address] March, [place] [address] [address] Jan, HTN (hypertension) I10 ; Hyp othyroid E03.9 ; Neuropathy G62.9 ; Diabetes mellitus E11.9 ; Chronic pain G89.29 ; GERD (gastroesophageal reflux disease) K21.9 ; Overactive bladder N32.81 and Depression F32.9 [place] [address] [address] Dec, Ear pain, left H92.02 ; HTN (hypertension) I10 ; Hypothyroid E03.9 ; Neuropathy G62.9 ; Diabetes mellitus E11.9 ; Depression F32.9 ; GERD (gastroesophageal reflux disease) K21.9 ; Insomnia G47.00 and Overactive bladder N32.81 [place] [address] [address] Nov, Overactive bladder N32.81 an d Chronic pain G89.29 [place] [address] [address] Nov, Kidney failure N19 [place] [address] [address] Nov, [place] [address] [address] Nov, [place] [address] [address] Nov, Diabetes mellitus E11.9 ; De pression F32.9 ; Chronic pain G89.29 ; GERD (gastroesophageal reflux disease) K21.9 ; Insomnia G47.00 ; HTN (hypertension) I10 ; Hypothyroid E03.9 ; COPD (chronic obstructive pulmonary disease) J44.9 ; Bladder incontinence R32 and Incontinence R32 [place] [address] [address] Sep, Type 2 diabetes mellitus wit h foot ulcer E11.621 and Chromosomal abnormality, 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 [place] [address] [address] Sep, [place] [address] [address] Aug, [place] [address] [address] Aug, [place] [address] [address] Aug, HTN (hypertension) I10 ; Enc ounter for immunization Z23 ; Hypothyroid E03.9 ; Neuropathy G62.9 ; Diabetes mellitus E11.9 ; Depression F32.9 ; Chronic pain G89.29 ; GERD (gastroesophageal reflux disease) K21.9 ; Insomnia G47.00 and COPD (chronic obstructive pulmonary disease) J44.9 [place] [address] [place] [id number] [address] [place] [address] Jun, [facility] [address] [place] [id number] [address] [place] [address] Jun, [facility] [address] [place] [id number] [address] [place] [address] May, Essential hypertension, ivis gn 401.1 ; Unspecified hypothyroidism 244.9 ; Insomnia, unspecified 780.52 ; Shortness of breath 786.05 ; Depression 311 ; COPD (chronic obstructive pulmonary disease) 496 ; GERD (gastroesophageal reflux disease) 530.81 and Diabetes 1.5, 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 [facility] [address] [address] May, [facility] [address] [address] May, [facility] [address] [address] May, Shortness of breath 786.05 ; Essential hypertension, benign 401.1 ; Diabetes mellitus 250.00 ; Hyperlipidemia 272.4 ; Hypothyroid 244.9 ; Insomnia 780.52 and Cough 786.2 [facility] [address] [place] [id number] [address] [place] [address] Apr, [facility] [address] [place] [address] March, Shortness of breath 786.05 ; Nausea with vomiting 787.01 ; Essential hypertension, benign 401.1 ; Diabetes mellitus 250.00 ; Hyperlipidemia 272.4 and Hypothyroid 244.9 [facility] [address] [place] [id number] [address] [place] [address] Feb, [facility] [address] [address] Feb, [facility] [address] [place] [id number] [address] [place] [phone] Jan, [facility] [address] [id number] [address] [place] [address], [place] [id number] 24 Jan, 2015 [facility] [address] [id number] [address] [place] [address], [place] [id number] Jan, [facility] [address] [id number] [address] [place] [address], [place] [id number] Jan, [facility] [address] [id number] [address] [place] [address], [place] [id number] Jan, 2014 [facility] [address] [id number] [address] [place] [address], [place] [id number] Jan, [facility] [address] [id number] [address] [place] [address], [place] [id number] Jan, [facility] [address] [id number] [address] [place] [address], [place] [id number] Jan, [facility] [address] [id number] [address] [place] [address], [place] [id number] Jan, [facility] [address] [id number] [address] [place] [address], [place] [id number] Jan, [facility] [address] [id number] [address] [place] [address], [place] [id number] Dec, [facility] [address] [id number] [address] [place] [address], [place] [id number] Dec, [facility] [address] [id number] [address] [place] [address], [place] [id number] Dec, 2014 [facility] [address] [id number] [address] [place] [address], [place] [id number] Dec, 2014 [facility] [facility] [address] [id number] [address] [place] [address], [place] [id number] Dec, [facility] [address] [id number] [address] [place] [address], [place] [address] Dec, 2014 [facility] [address] [id number] [address] [place] [address], [place] [id number] Dec, 2014 [facility] [address] [id number] [address] [place] [address], [place] [address] Dec, 2014 [facility] [address] [id number] [address] [place] [address], [place] [address] Dec, 2014 [facility] [address] [id number] [address] [place] [address], [place] [address] Dec, 2014 [facility] [address] [id number] [address] [place] [address], [place] [address] Oct, [facility] [address] [id number] [address] [place] [address], [place] [id number] Oct, [facility] [address] [id number] [address] [place] [address], [place] [id number] Oct, [facility] [address] [id number] [address] [place] [address], [place] [id number] Oct, [facility] [address] [id number] [address] [place] [address], [place] [id number] Oct, [facility] [address] [id number] [address] [place] [address], [place] [address] Oct, [facility] [address] [id number] [address] [place] [address], [place] [id number] Oct, [facility] [address] [id number] [address] [place] [address], [place] [address] Oct, [facility] [address] [id number] [address] [place] [address], [place] [address] Oct, [facility] [address] [id number] [address] [place] [address], [place] [address] Oct, [facility] [address] [id number] [address] [place] [address], [place] [address] Oct, [facility] [address] [id number] [address] [place] [address], [place] [id number] Oct, [facility] [address] [id number] [address] [place] [address], [place] [address] Oct, [facility] [address] [id number] [address] [place] [address], [place] [id number] Oct, [facility] [address] [id number] [address] [place] [address], [place] [address] Sep, [facility] [address] [id number] [address] [place] [address], [place] [id number] Sep, [facility] [address] [id number] [address] [place] [address], [place] [address] Sep, [facility] [address] [id number] [address] [place] [address], [place] [address] Sep, [facility] [address] [id number] [address] [place] [address], [place] [address] Sep, [facility] [address] [id number] [address] [place] [address], [place] [address] Sep, [facility] [address] [id number] [address] [place] [address], [place] [address] Sep, [facility] [address] [id number] [address] [place] [address], [place] [address] Sep, [facility] [address] [id number] [address] [place] [address], [place] [address] Sep, [facility] [address] [id number] [address] [place] [address], [place] [address] Aug, [facility] [address] [id number] [address] [place] [address], [place] [address] Aug, [facility] [address] [id number] [address] [place] [address], [place] [id number] Aug, [facility] [address] [id number] [address] [place] [address], [place] [address] Aug, [facility] [address] [id number] [address] [place] [address], [place] [id number] 16 Aug, 2014 [facility] [address] [id number] [address] [place] [address], [place] [address] Aug, [facility] [address] [id number] [address] [place] [address], [place] [address] Aug, [facility] [address] [id number] [address] [place] [address], [place] [address] Aug, [facility] [address] [id number] [address] [place] [address], [place] [id number] Aug, [facility] [address] [id number] [address] [place] [address], [place] [address] Jul, [facility] [address] [id number] [address] [place] [address], [place] [id number] Jul, [facility] [address] [id number] [address] [place] [address], [place] [address] Jul, [facility] [address] [id number] [address] [place] [address], [place] [address] Jul, [facility] [address] [id number] [address] [place] [address], [place] [address] Jul, [facility] [address] [id number] [address] [place] [address], [place] [address] Jul, [facility] [address] [id number] [address] [place] [address], [place] [address] Jul, [facility] [address] [id number] [address] [place] [address], [place] [address] Jul, [facility] [address] [id number] [address] [place] [address], [place] [address] Jul, [facility] [address] [id number] [address] [place] [address], [place] [address] Jul, [facility] [address] [id number] [address] [place] [address], [place] [address] Jun, [facility] [address] [id number] [facility] [place] [address] Jun, [facility] [address] [id number] [facility] [place] [address] Jun, [facility] [address] [id number] [facility] [place] [address] Jun, [facility] [address] [id number] [facility] [place] [address] Jun, [facility] [address] [id number] [facility] [place] [address] Jun, [facility] [address] [id number] [address] [place] [address], [place] [address] Jun, [facility] [address] [id number] [address] [place] [address], [place] [address] Jun, [facility] [address] [id number] [address] [place] [address], [place] [id number] Jun, [facility] [address] [id number] [address] [place] [address], [place] [id number] Jun, [facility] [address] [id number] [address] [place] [address], [place] [address] Jun, [facility] [address] [id number] [address] [place] [address], [place] [id number] Jun, [facility] [address] [id number] [address] [place] [address], [place] [address] May, [facility] [address] [id number] [address] [place] [address], [place] [address] May, [facility] [address] [id number] [address] [place] [address], [place] [address] May, [facility] [address] [id number] [address] [place] [address], [place] [address] May, [facility] [address] [id number] [address] [place] [address], [place] [address] May, [facility] [address] [id number] [facility] [place] [address] May, [facility] [address] [id number] [address] [place] [address], [place] [address] March, [facility] [address] [id number] [address] [place] [address], [place] [address] March, [facility] [address] [id number] [address] [place] [address], [place] [address] March, [facility] [address] [id number] [address] [place] [address], [place] [address] March, [facility] [address] [id number] [address] [place] [address], [place] [id number] March, [facility] [address] [id number] [address] [place] [address], [place] [address] March, [facility] [address] [id number] [address] [place] [address], [place] [id number] Feb, [facility] [address] [id number] [address] [place] [address], [place] [address] Feb, [facility] [address] [id number] [address] [place] [address], [place] [address] Feb, [facility] [address] [id number] [address] [place] [address], [place] [address] Feb, [facility] [address] [id number] [address] [place] [address], [place] [address] Jan, [facility] [address] [id number] [address] [place] [address], [place] [id number] Jan, [facility] [address] [id number] [address] [place] [address], [place] [address] Jan, [facility] [address] [id number] [address] [place] [address], [place] [address] Jan, [facility] [address] [id number] [address] [place] [address], [place] [address] Jan, [facility] [address] [id number] [address] [place] [address], [place] [address] Jan, [facility] [address] [id number] [address] [place] [address], [place] [address] Jan, [facility] [address] [id number] [address] [place] [address], [place] [address] Jan, [facility] [address] [id number] [address] [place] [address], [place] [address] Jan, [facility] [address] [id number] [address] [place] [address], [place] [address] Jan, [facility] [address] [id number] [address] [place] [address], [place] [address] Jan, [facility] [address] [id number] [address] [place] [address], [place] [id number] Jan, [facility] [address] [id number] [address] [place] [address], [place] [address] Dec, [facility] [address] [id number] [address] [place] [address], [place] [address] Dec, [facility] [address] [id number] [address] [place] [address], [place] [address] Dec, [facility] [address] [id number] [address] [place] [address], [place] [address] Dec, [facility] [address] [id number] [address] [place] [address], [place] [address] Dec, [facility] [address] [id number] [address] [place] [address], [place] [address] Dec, [facility] [address] [id number] [address] [place] [address], [place] [address] Nov, [facility] [address] [id number] [address] [place] [address], [place] [address] Nov, [facility] [address] [id number] [address] [place] [address], [place] [address] Oct, [facility] [address] [id number] [address] [place] [address], [place] [address] Oct, [facility] [address] [id number] [address] [place] [address], [place] [address] Oct, [facility] [address] [id number] [address] [place] [address], [place] [address] Oct, [facility] [address] [id number] [address] [place] [address], [place] [address] Oct, [facility] [address] [id number] [address] [place] [address], [place] [address] Oct, [facility] [address] [id number] [address] [place] [address], [place] [address] Sep, [facility] [address] [id number] [address] [place] [address], [place] [id number] Sep, [facility] [address] [id number] [address] [place] [address], [place] [address] Sep, [facility] [address] [id number] [address] [place] [address], [place] [id number] Sep, [facility] [address] [id number] [address] [place] [address], [place] [address] Aug, [facility] [address] [id number] [address] [place] [address], [place] [id number] Aug, [facility] [address] [id number] [address] [place] [address], [place] [id number] 08 Aug, 2013 [facility] [address] [id number] [address] [place] [address], [place] [id number] 17 Jul, 2013 [facility] [address] [id number] [address] [place] [address] [id number] 14 Sep2012 [facility] [address] [id number] [address] [place] [address], [place] [address] Jul, [facility] [address] [id number] [address] [place] [address], [place] [id number] Jun, [facility] [address] [id number] [address] [place] [address], [place] [address] Jun, [facility] [address] [id number] [address] [place] [address], [place] [id number] Jun, [facility] [address] [id number] [address] [place] [address], [place] [address] Apr, [facility] [address] [id number] [address] [place] [address], [place] [address] Apr, [facility] [address] [id number] [address] [place] [address], [place] [address] March, [facility] [address] [id number] [address] [place] [address], [place] [address] March, [facility] [address] [id number] [address] [place] [address], [place] [address] March, [facility] [address] [id number] [address] [place] [address], [place] [id number] March, [facility] [address] [id number] [address] [place] [address], [place] [address] Feb, [facility] [address] [id number] [address] [place] [address], [place] [address] Jan, [facility] [address] [id number] [address] [place] [address], [place] [address] Dec, [facility] [address] [id number] [address] [place] [address], [place] [address] Dec, [facility] [address] [id number] [address] [place] [address], [place] [id number] Dec, [facility] [address] [id number] [address] [place] [address], [place] [address] Nov, [facility] [address] [id number] [address] [place] [address], [place] [id number] 13 Oct, 2012 [facility] [address] [id number] [address] [place] [address], [place] [id number] Oct, [facility] [address] [id number] [address] [place] [address], [place] [id number] Sep, [facility] [address] [id number] [address] [place] [address], [place] [id number] Sep, [facility] [address] [id number] [address] [place] [address], [place] [id number] Sep, [facility] [address] [id number] [address] [place] [address], [place] [address] Sep, [facility] [address] [id number] [address] [place] [address], [place] [id number] Sep, [facility] [address] [id number] [address] [place] [address], [place] [address] Sep, [facility] [address] [id number] [address] [place] [address], [place] [address] Sep, [facility] [address] [id number] [address] [place] [address], [place] [address] Aug, [facility] [address] [id number] [address] [place] [address], [place] [id number] 16 Aug, 2012 [facility] [address] [id number] [address] [place] [address], [place] [address] Aug, [facility] [address] [id number] [address] [place] [address], [place] [address] Aug, [facility] [address] [id number] [address] [place] [address], [place] [id number] Aug, [facility] [address] [id number] [address] [place] [address], [place] [id number] Aug, [facility] [address] [id number] [address] [place] [address], [place] [address] Aug, [facility] [address] [id number] [address] [place] [address], [place] [id number] Aug, [facility] [address] [id number] [address] [place] [address], [place] [id number] Jul, [facility] [address] [id number] [address] [place] [address], [place] [address] Jul, [facility] [address] [id number] [address] [place] [address], [place] [address] Jun, [facility] [address] [id number] [address] [place] [address], [place] [address] May, [facility] [address] [id number] [address] [place] [address], [place] [address] Apr, [facility] [address] [id number] [address] [place] [address], [place] [address] Apr, [facility] [address] [id number] [address] [place] [address], [place] [id number] Apr, [facility] [address] [id number] [address] [place] [address], [place] [id number] March, [facility] [address] [id number] [address] [place] [address], [place] [id number] March, [facility] [address] [id number] [address] [place] [address], [place] [id number] March, [facility] [address] [id number] [address] [place] [address], [place] [address] March, [facility] [address] [id number] [address] [place] [address], [place] [id number] March, [facility] [address] [id number] [address] [place] [address], [place] [id number] March, [facility] [address] [id number] [address] [place] [address], [place] [id number] March, [facility] [address] [id number] [address] [place] [address], [place] [id number] 22 Jan, 2012 [facility] [address] [id number] [address] [place] [address], [place] [id number] Jan, [facility] [address] [id number] [address] [place] [address], [place] [id number] 20 Jan, 2012 [facility] [address] [id number] [address] [place] [address], [place] [id number] 13 Jan, 2012 [facility] [address] [id number] [address] [place] [address], [place] [id number] Jan, [facility] [address] [id number] [address] [place] [address], [place] [id number] 08 Dec, 2011 [facility] [address] [id number] [address] [place] [address], [place] [id number] Dec, [facility] [address] [id number] [address] [place] [address], [place] [id number] Nov, [facility] [address] [id number] [address] [place] [address], [place] [id number] Nov, [facility] [address] [id number] [address] [place] [address], [place] [id number] Nov, [facility] [address] [id number] [address] [place] [address], [place] [id number] Nov, [facility] [address] [id number] [address] [place] [address], [place] [id number] Oct, [facility] [address] [id number] [address] [place] [address], [place] [id number] Oct, [facility] [address] [id number] [address] [place] [address], [place] [id number] 14 Sep, 2011 [facility] [address] [id number] [address] [place] [address], [place] [id number] 10 Sep, 2011 [facility] [address] [id number] [address] [place] [address], [place] [id number] 10 Sep, 2011 [facility] [address] [id number] [address] [place] [address], [place] [id number] May, [facility] [address] [id number] [address] [place] [address], [place] [id number] Nov, [facility] [address] [id number] [address] [place] [address], [place] [id number] 29 Oct, 2010 [facility] [address] [id number] [address] [place] [address], [place] [id number] 14 Oct, 2010 [facility] [address] [id number] [address] [place] [address], [place] [id number] 08 Oct, 2010 [facility] [address] [id number] [address] [place] [address], [place] [id number] 15 Sep, 2010 [facility] [address] [id number] [address] [place] [address], [place] [id number] Sep, [facility] [address] [id number] [address] [place] [address], [place] [id number] Aug, [facility] [address] [id number] [address] [place] [address], [place] [id number] March, [facility] [address] [id number] [address] [place] [address], [place] [id number] Oct, [facility] [address] [id number] [address] [place] [address], [place] [id number] 17 Oct, 2009 [facility] [address] [id number] [address] [place] [address], [place] [id number] Oct, [facility] [address] [id number] [address] [place] [address], [place] [id number] 02 Oct, 2009 [facility] [address] [id number] [address] [place] [address], [place] [id number] Sep, [facility] [address] [id number] [address] [place] [address], [place] [id number] Sep, [facility] [address] [id number] [address] [place] [address], [place] [id number] Sep, [facility] [address] [facility] [id number] [address] [place] [id number] Aug, [facility] [address] [facility] [id number] [address] [place] [id number] Aug, [facility] [address] [facility] [id number] [address] [place] [id number] Aug, [facility] [address] [facility] [id number] [address] [place] [id number] Jan, IMMUNIZATIONS No Known Immunizations SOCIAL HISTORY Never Assessed REASON FOR VISIT EMR-[facility] PLAN OF CARE VITAL SIGNS MEDICATIONS Medication Instructions Dosage Frequency Start Date End Date Duration S tatus tramadol 50 mg 1 tablet by Oral route every 6-8 hours PRN Jan, Active Levemir FlexTouch 100 unit/mL (3 mL) 100 Units as per insulin sliding scale protocol 1 time per day and 110 units QHS Jan, Active levothyroxine 125 mcg 1 tablet by Oral route 1 time per day Jan, Active doxepin 50 mg 1 capsule by Oral route 1 time per day Oct, Active MethylPREDNISolone 4 mg by Oral route for 6 days as directed per dose pack Jan, Active Amoxicillin 500 mg 1 capsule by Oral route 3 times per day for 7 days Dec, Active Sudafed 60 mg 1 tablet by Oral route every 6 hours PRN 2 4 Dec, 2014 Active Augmentin 875-125 mg 1 tablet by Oral ro [employer] 2 times per day for 10 day(s) voucher Dec, Active Terbinafine 1 % 1 todd by Topical route 2 times per day for 30 day(s) March, Active Effexor XR 75 mg take 1 capsule (75 mg) by oral route once daily with food Jan, Active RESULTS No Results PROCEDURES No Known [...]
--- OUTSIDE RECORDS SUMMARY | 2020-06-13 16:13 | XMS REPORT ---
Author Author Jah Durant Doctor Organization [facility] Address Unknown Phone Unavailable Care Team Providers Care Dragline Operator Name Role Phone Migration, Doctor Unavailable Unavailable PROBLEMS Type Condition ICD9-CM Code [id number] Code Onset Dates Condition S tatus SNOMED Code Problem Hypothyroid E03.9 Active 26667166 Problem Neuropathy G62.9 Active 899265299 Problem Mixed hyperlipidemia E78.2 Active 011588323 Problem Overactive bladder N32.81 Active 2 26315275 Problem Irritable bowel syndrome with diarrhea K58.0 Active 280626091 Problem Gastroesophageal reflux disease with esophagitis K 21.0 Active 882899296 Problem Type 2 diabetes mellitus with hyperglycemia E11.65 Active 93018863 Problem long-term current use of insulin Z79.4 Active 251297644 Problem Current non-adherence to medical treatment Z91.19 Active 8013230 Problem Recurrent major depressive disorder, in partial remission F33.41 Active 46643747 Problem Chronic fatigue R53.82 Active 8422 9001 Problem 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 Active 565236270 Problem Pulmonary emphysema, unspecified emphysema type J4 3.9 Active 25330186 Problem Thrombocytosis D47.3 Active 29523 09 Problem Acquired hypothyroidism E03.9 Active 699946909 Problem Essential (primary) hypertension I10 Active 76190744 Problem Chronic pain G89.29 Active 5089348 1 Problem Anxiety disorder, unspecified type F41.9 Active 153248226 Problem Major depressive disorder, recurrent episode, moderate F33.1 Active 206018782 Problem Hypertriglyceridemia E78.1 Active 591181525 Problem Gastroparesis K31.84 Active 187574 006 ALLERGIES No Information ENCOUNTERS Encounter Location Date Diagnosis [facility] [address] [facility] [id number] [address] [place] [address] March, Chronic pain G89.29 [facility] [address] [facility] [id number] [address] [place] [address] March, [address] [address] Feb, [facility] [address] [facility] [id number] [address] [place] [address] 09 Feb, 2019 Other chronic pain G89.29 an d Chronic pain G89.29 [facility] [address] [facility] [id number] [address] [place] [address] Jan, Mixed hyperlipidemia E78.2 [facility] [address] [id number] [address] [place] [address] Jan, Chronic pain G89.29 [facility] [address] [facility] [id number] [address] [place] [address] Jan, Type 2 diabetes mellitus wit h hyperglycemia E11.65 ; Mixed hyperlipidemia E78.2 ; long-term current use of insulin Z79.4 ; Acquired hypothyroidism E03.9 and Essential (primary) hypertension I10 [facility] [address] [facility] [id number] [address] [place] [address] Dec, Chronic pain G89.29 [facility] [address] [facility] [id number] [address] [place] [address] Nov, Chronic pain G89.29 [facility] [address] [facility] [id number] [address] [place] [address] Nov, [facility] [address] [facility] [id number] [address] [place] [address] Oct, Chronic pain G89.29 [facility] [address] [facility] [id number] [address] [place] [address] Oct, [facility] [address] [facility] [id number] [address] [place] [address] Sep, [facility] [address] [facility] [id number] [address] [place] [address] Sep, Type 2 diabetes mellitus wit h hyperglycemia E11.65 [facility] [address] [facility] [id number] [address] [place] [address] Sep, Chronic pain G89.29 [place] [id number] [place] [address] Sep, [place] [address] [place] [id number] [address] [place] [address] Sep, Type 2 diabetes mellitus wit h hyperglycemia E11.65 ; Irritable bowel syndrome with diarrhea K58.0 ; Gastroparesis K31.84 ; 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 and Dermatitis L30.9 [place] [address] [facility] [id number] [address] [place] [address] Aug, Chronic pain G89.29 [place] [address] [place] [id number] [address] [place] [address] Jul, Chronic pain G89.29 [place] [address] [place] [address] Jun, Type 2 diabetes mellitus wit h hyperglycemia E11.65 ; Neuropathy G62.9 ; Recurrent major depressive disorder, in partial remission F33.41 ; Chronic pain G89.29 and Hypertriglyceridemia E78.1 [place] [address] [address] Jun, Hypothyroid E03.9 [place] [address] [address] Jun, Major depressive disorder, r ecurrent episode, moderate F33.1 and Anxiety disorder, unspecified type F41.9 [place] [address] [place] [id number] [address] [place] [address] Jun, [place] [address] [address] Jun, Type 2 diabetes mellitus wit h hyperglycemia E11.65 ; 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 current 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 insulin Z79.4 ; Recurrent major depressive disorder, in partial remission F33.41 ; Hypothyroid E03.9 ; Candidal dermatitis B37.2 and Weakness generalized R53.1 [place] [address] [place] [address] [place] [address] May, [facility] [address] [id number] [address] [place] [address] May, [facility] [address] [id number] [address] [place] [address] May, [facility] [address] [id number] [address] [place] [address] May, Generalized abdominal pain R 10.84 and Candidal dermatitis B37.2 [facility] [address] [id number] [address] [place] [address] May, [facility] [address] [facility] [id number] [address] [place] [address] May, [place] [address] [facility] [id number] [address] [place] [address] May, Nodular radiologic density R 93.8 ; Weight loss, unintentional R63.4 and Pulmonary emphysema, unspecified emphysema type J43.9 [facility] [address] [facility] [id number] [address] [place] [address] May, Chronic pain G89.29 [place] [address] [facility] [id number] [address] [place] [address] May, Syncope and collapse R55 ; C hronic fatigue R53.[address] lung screening R91.8 [place] [address] [facility] [id number] [address] [place] [address] May, [facility] [address] [facility] [id number] [address] [place] [address] Apr, Chronic fatigue R53.82 ; Abn ormal chest CT R93.8 ; Elevated erythrocyte sedimentation rate R70.0 ; Hypothyroid E03.9 and Recurrent major depressive disorder, in partial remission F33.41 [facility] [address] [facility] [id number] [address] [place] [address] Apr, Hypothyroid E03.9 [place] [address] [facility] [id number] [address] [place] [address] Apr, Depression F32.9 [facility] [address] [facility] [id number] [address] [place] [address] Apr, [facility] [address] [facility] [id number] [address] [place] [address] March, [place] [address] [facility] [id number] [address] [place] [address] March, Hypothyroid E03.9 [place] [address] [facility] [id number] [address] [place] [address] March, Diabetes mellitus E11.9 and Hypothyroid E03.9 [place] [address] [place] [id number] [address] [place] [address] March, Diabetes mellitus E11.9 [place] [address] [facility] [id number] [address] [place] [address] March, Hypothyroid E03.9 and Elevat ed liver enzymes R74.8 [place] [address] [facility] [id number] [address] [place] [address] March, Type 2 diabetes mellitus wit h hyperglycemia E11.65 ; buttermaker current use of insulin Z79.4 ; Pulmonary emphysema, unspecified emphysema type J43.9 ; Hypothyroid E03.9 ; Neuropathy G62.9 ; Mixed hyperlipidemia E78.2 ; Chronic pain G89.29 ; Gastroesophageal reflux disease with esophagitis K21.0 ; Irritable bowel syndrome with diarrhea K58.0 ; Overactive bladder N32.81 and Recurrent major depressive disorder, in partial remission F33.41 [place] [address] [facility] [id number] [address] [place] [address] Feb, Chronic pain G89.29 [place] [address] [facility] [id number] [address] [place] [address] Feb, Type 2 diabetes mellitus wit h hyperglycemia E11.65 and Skin lesion of scalp L98.9 [place] [address] [place] [id number] [address] [place] [address] Feb, [place] [address] [place] [address] Jan, Type 2 diabetes mellitus wit h hyperglycemia E11.65 ; buttermaker current use of insulin Z79.4 ; Essential (primary) hypertension I10 ; Pulmonary emphysema, unspecified emphysema type J43.9 ; Chronic pain G89.29 ; Controlled substance agreement signed Z79.899 ; Hypothyroid E03.9 ; Neuropathy G62.9 ; Gastroesophageal reflux disease with esophagitis K21.0 ; Overactive bladder N32.81 ; Depression F32.9 and Irritable bowel syndrome with diarrhea K58.0 [place] [address] [place] [id number] [address] [place] [address] Jan, [place] [address] [place] [id number] [address] [place] [address] Jan, Controlled substance agreeme nt signed Z79.899 [place] [id number] [place] [address] Dec, Type 2 diabetes mellitus wit h [...] treatment Z91.19 and Overweight (BMI 25.0-29.9) E66.3 [place] [address] [place] [id number] [address] [place] [address] Dec, Controlled substance agreeme nt signed Z79.899 [place] [address] [place] [id number] [address] [place] [address] Nov, Type 2 diabetes mellitus wit h hyperglycemia E11.65 and Current non- adherence to medical treatment Z91.19 [place] [address] [place] [id number] [place] [address] Nov, [facility] [address] [id number] [address] [place] [address] Nov, Chronic pain G89.29 [facility] [address] [id number] [address] [place] [address] Nov, [facility] [address] [id number] [address] [place] [address] Nov, Hypothyroid E03.9 [facility] [address] [id number] [address] [place] [address] Nov, Hypothyroid E03.9 [facility] [address] [facility] [id number] [address] [place] [address] Nov, Pulmonary emphysema, unspeci fied emphysema type J43.9 and Irritable bowel syndrome with diarrhea K58.0 [facility] [address] [facility] [id number] [address] [place] [address] Oct, [facility] [address] [facility] [id number] [address] [place] [address] Oct, [facility] [address] [facility] [id number] [address] [place] [id number] Oct, [facility] [address] [facility] [id number] [address] [place] [address] Oct, [facility] [address] [facility] [id number] [address] [place] [address] Oct, Chronic pain G89.29 [facility] [address] [facility] [id number] [address] [place] [address] Oct, Diabetes mellitus E11.9 ; De pression F32.9 ; Mixed hyperlipidemia E78.2 ; Hypotension, unspecified hypotension type I95.9 ; Pulmonary emphysema, unspecified emphysema type J43.9 and Weight loss, unintentional R63.4 [facility] [address] [facility] [id number] [address] [place] [address] Oct, Chronic pain G89.29 [facility] [address] [place] [id number] [address] [place] [address] Sep, Chronic pain G89.29 [facility] [address] [place] [id number] [address] [place] [id number] Sep, Hypothyroid E03.9 and Diabet es mellitus E11.9 [facility] [address] [address] Aug, Type 2 diabetes mellitus wit h hyperglycemia E11.65 ; long-term current use of insulin Z79.4 ; Essential (primary) hypertension I10 ; Hypothyroid E03.9 ; Neuropathy G62.9 ; Chronic pain G89.29 ; Mixed hy perlipidemia E78.2 and Encounter for immunization Z23 [facility] [address] [address] Aug, Chronic pain G89.29 [facility] [address] [address] Aug, Overactive bladder N32.81 ; Diabetes mellitus E11.9 and Chronic pain G89.29 [facility] [address] [place] [id number] [address] [place] [address] Jul, [facility] [address] [address] Jun, [facility] [address] [place] [id number] [address] [place] [address] Jun, [facility] [address] [place] [id number] [address] [place] [address] Jun, Hypothyroid E03.9 [facility] [address] [place] [id number] [address] [place] [address] Jun, Diabetes mellitus E11.9 ; Hy pothyroid E03.9 ; Neuropathy G62.9 ; Chronic pain G89.29 and Neck mass R22.1 [facility] [address] [place] [id number] [address] [place] [address] Apr, [facility] [address] [facility] [id number] [address] [place] [address] Apr, Acute cystitis without hemat uria N30.00 [facility] [address] [facility] [id number] [address] [place] [address] March, [facility] [address] [facility] [id number] [address] [place] [id number] March, [facility] [address] [facility] [id number] [address] [place] [address] March, Near syncope R55 [facility] [address] [facility] [id number] [address] [place] [id number] Feb, [facility] [address] [place] [id number] [address] [place] [address] Feb, Chronic pain G89.29 [facility] [address] [facility] [id number] [address] [place] [address] Feb, [facility] [address] [facility] [id number] [address] [place] [address] Feb, [facility] [address] [facility] [id number] [address] [place] [address] Jan, Chronic pain G89.29 [facility] [address] [facility] [id number] [address] [place] [address] Jan, [facility] [address] [place] [id number] [address] [place] [address] Jan, [facility] [address] [facility] [id number] [address] [place] [address] Jan, Diabetes mellitus E11.9 ; Hy pothyroid E03.9 ; GERD (gastroesophageal reflux disease) K21.9 ; Insomnia G47.00 ; Functional 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 ; Neuropathy G62.9 ; Depression F32.9 ; Chronic pain G89.29 ; Irritable bowel syndrome with diarrhea K58.0 ; Overactive bladder N32.81 ; Mixed hyperlipidemia E78.2 and Bronchitis J40 [facility] [address] [facility] [id number] [address] [place] [address] Dec, [facility] [address] [facility] [id number] [address] [place] [address] Dec, [facility] [address] [place] [id number] [place] [address] Dec, [facility] [address] [place] [id number] [place] [address] Dec, [facility] [address] [place] [id number] [place] [address] Dec, Chronic pain G89.29 [facility] [address] [place] [id number] [place] [address] Dec, [facility] [address] [address] Dec, [facility] [address] [address] Dec, Type 2 diabetes mellitus wit h foot ulcer E11.621 [place] [address] [address] 17 Dec, 2016 Type 2 diabetes mellitus wit h foot ulcer E11.621 [facility] [address] [address] 14 Dec, 2016 HTN (hypertension) I10 ; Dep ression F32.9 ; Type 2 diabetes mellitus with foot ulcer E11.621 ; Functional 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 ; Irritable bowel syndrome with diarrhea K58.0 ; Chronic pain G89.29 ; Insomnia G47.00 ; Overactive bladder N32.81 ; Mixed hyperlipidemia E78.2 ; Gastroesophageal reflux disease with esophagitis K21.0 and Acquired hypothyroidism E03.9 [facility] [address] [place] [id number] [address] [place] [address] Nov, [place] [address] [address] Oct, [place] [address] [address] Oct, [place] [address] [address] Oct, [place] [address] [address] Sep, Functional 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 ; HTN (hypertension) I10 ; Diabetes mellitus E11.9 ; Depression F32.9 ; Overactive bladder N32.81 ; Mixed hyperlipidemia E78.2 ; Gastroesophageal reflux disease without esophagitis K21.9 ; Chronic pain G89.29 ; Insomnia G47.00 and Acquired hypothyroidism E03.[address] [address] Sep, [address] [address] Aug, Encounter for immunization Z [address] [address] Aug, [place] [address] [address] 09 Jul, 2016 [place] [address] [address] Jun, Type 2 diabetes mellitus wit hout complications E11.9 ; HTN (hypertension) I10 ; Hypothyroid E03.9 ; Neuropathy G62.9 ; Depression F32.9 ; Chronic pain G89.29 ; GERD (gastroesophageal reflux disease) K21.9 ; Insomnia G47.00 ; Overactive bladder N32.81 ; Mixed hyperlipidemia E78.2 ; Diarrhea of infectious origin A09 and Environmental allergies Z91.09 [place] [address] [address] Apr, [address] [address] March, Hypothyroidism, unspecified E03.9 and Mixed hyperlipidemia E78.2 [place] [address] [address] March, Diabetes mellitus E11.9 ; HT N (hypertension) I10 ; Hypothyroid E03.9 ; Depression F32.9 ; Overactive bladder N32.81 ; Other chronic pain G89.29 ; Lumbago with sciatica, unspecified side M54.40 ; Environmental allergies Z91.09 and Gastroesophageal reflux disease, esophagitis presence not specified K21.9 [place] [address] [address] March, [place] [address] [address] Jan, HTN (hypertension) I10 ; Hyp othyroid E03.9 ; Neuropathy G62.9 ; Diabetes mellitus E11.9 ; Chronic pain G89.29 ; GERD (gastroesophageal reflux disease) K21.9 ; Overactive bladder N32.81 and Depression F32.9 [place] [address] [address] Dec, Ear pain, left H92.02 ; HTN (hypertension) I10 ; Hypothyroid E03.9 ; Neuropathy G62.9 ; Diabetes mellitus E11.9 ; Depression F32.9 ; GERD (gastroesophageal reflux disease) K21.9 ; Insomnia G47.00 and Overactive bladder N32.81 [place] [address] [place] [id number] [address] [place] [address] Nov, Overactive bladder N32.81 an d Chronic pain G89.29 [place] [address] [address] Nov, Kidney failure N19 [place] [address] [address] Nov, [place] [address] [address] Nov, [place] [address] [address] Nov, Diabetes mellitus E11.9 ; De pression F32.9 ; Chronic pain G89.29 ; GERD (gastroesophageal reflux disease) K21.9 ; Insomnia G47.00 ; HTN (hypertension) I10 ; Hypothyroid E03.9 ; COPD (chronic obstructive pulmonary disease) J44.9 ; Bladder incontinence R32 and Incontinence R32 [address] [address] Sep, Type 2 diabetes mellitus wit h foot ulcer E11.621 and Chromosomal abnormality, 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 [address] Sep, [address] [address] Aug, [address] [address] Aug, [address] [address] Aug, HTN (hypertension) I10 ; Enc ounter for immunization Z23 ; Hypothyroid E03.9 ; Neuropathy G62.9 ; Diabetes mellitus E11.9 ; Depression F32.9 ; Chronic pain G89.29 ; GERD (gastroesophageal reflux disease) K21.9 ; Insomnia G47.00 and COPD (chronic obstructive pulmonary disease) J44.9 [place] [address] [address] Jun, [address] [address] Jun, [address] [address] May, Essential hypertension, ivis gn 401.1 ; Unspecified hypothyroidism 244.9 ; Insomnia, unspecified 780.52 ; Shortness of breath 786.05 ; Depression 311 ; COPD (chronic obstructive pulmonary disease) 496 ; GERD (gastroesophageal reflux disease) 530.81 and Diabetes 1.5, 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 [facility] [address] [address] May, [facility] [address] [address] May, [facility] [address] [address] May, Shortness of breath 786.05 ; Essential hypertension, benign 401.1 ; Diabetes mellitus 250.00 ; Hyperlipidemia 272.4 ; Hypothyroid 244.9 ; Insomnia 780.52 and Cough 786.2 [facility] [address] [address] Apr, [facility] [address] [address] March, Shortness of breath 786.05 ; Nausea with vomiting 787.01 ; Essential hypertension, benign 401.1 ; Diabetes mellitus 250.00 ; Hyperlipidemia 272.4 and Hypothyroid 244.9 [facility] [address] [address] Feb, [facility] [address] [address] Feb, [facility] [address] [place] [id number] [address] [place] [address] Jan, [facility] [address] [place] [id number] [address] [place] [address] Jan, [facility] [address] [id number] Jan, [facility] [address] [id number] [address] [place] [id number] Jan, [facility] [address] [id number] [address] [place] [id number] Jan, [facility] [address] [id number] [address] [place] [address], [place] [id number] Jan, 2014 [facility] [address] [id number] [address] [place] [address], [place] [id number] Jan, 2014 [facility] [address] [id number] [address] [place] [address], [place] [id number] Jan, 2014 [facility] [address] [id number] [address] [place] [address], [place] [id number] Jan, 2014 [facility] [address] [id number] [address] [place] [address], [place] [id number] Jan, [facility] [address] [id number] [address] [place] [address], [place] [id number] Dec, 2014 [facility] [address] [id number] [address] [place] [address], [place] [id number] Dec, 2014 [facility] [address] [id number] [address] [place] [address], [place] [address] Dec, 2014 [facility] [address] [id number] [address] [place] [address], [place] [address] Dec, 2014 [facility] [address] [id number] [address] [place] [address], [place] [address] Dec, 2014 [facility] [address] [id number] [address] [place] [address], [place] [address] Dec, 2014 [facility] [address] [id number] [address] [place] [address], [place] [address] Dec, 2014 [facility] [address] [id number] [address] [place] [address], [place] [address] Dec, 2014 [facility] [address] [id number] [address] [place] [address], [place] [address] Dec, 2014 [facility] [address] [id number] [address] [place] [address], [place] [address] Dec, 2014 [facility] [address] [id number] [address] [place] [address], [place] [address] Oct, [facility] [address] [id number] [address] [place] [address], [place] [address] Oct, [facility] [address] [id number] [address] [place] [address], [place] [address] Oct, [facility] [address] [id number] [address] [place] [address], [place] [address] Oct, [facility] [address] [id number] [address] [place] [address], [place] [address] Oct, [facility] [address] [id number] [address] [place] [address], [place] [address] Oct, [facility] [address] [id number] [address] [place] [address], [place] [address] Oct, [facility] [address] [id number] [address] [place] [address], [place] [address] Oct, [facility] [address] [id number] [address] [place] [address], [place] [address] Oct, [facility] [address] [id number] [address] [place] [address], [place] [address] Oct, [facility] [address] [id number] [address] [place] [address], [place] [address] Oct, [facility] [address] [id number] [address] [place] [address], [place] [address] Oct, [facility] [address] [id number] [address] [place] [address], [place] [address] Oct, [facility] [address] [id number] [address] [place] [address], [place] [address] Oct, [facility] [address] [id number] [address] [place] [address], [place] [address] Sep, [facility] [address] [id number] [address] [place] [address], [place] [address] Sep, [facility] [address] [id number] [address] [place] [address], [place] [address] Sep, [facility] [address] [id number] [address] [place] [address], [place] [address] Sep, [facility] [address] [id number] [address] [place] [address], [place] [address] Sep, [facility] [address] [id number] [address] [place] [address], [place] [address] Sep, [facility] [address] [id number] [address] [place] [address], [place] [address] Sep, [facility] [address] [id number] [address] [place] [address], [place] [address] Sep, [facility] [address] [id number] [address] [place] [address], [place] [address] Sep, [facility] [address] [id number] [address] [place] [address], [place] [address] Aug, [facility] [address] [id number] [address] [place] [address], [place] [address] Aug, [facility] [address] [id number] [address] [place] [address], [place] [address] Aug, [facility] [address] [id number] [address] [place] [address], [place] [address] Aug, [facility] [address] [id number] [address] [place] [address], [place] [address] 16 Aug, 2014 [facility] [address] [id number] [address] [place] [address], [place] [address] Aug, [facility] [address] [id number] [address] [place] [address], [place] [address] Aug, [facility] [address] [id number] [address] [place] [address], [place] [address] Aug, [facility] [address] [id number] [address] [place] [address] Aug, [facility] [address] [id number] [facility] [place] [address] Jul, [facility] [address] [id number] [address] [place] [address], [place] [address] Jul, [facility] [address] [id number] [address] [place] [address], [place] [address] Jul, [facility] [address] [id number] [address] [place] [address], [place] [address] Jul, [facility] [address] [id number] [address] [place] [address], [place] [address] Jul, [facility] [address] [id number] [address] [place] [address], [place] [address] Jul, [facility] [address] [id number] [address] [place] [address], [place] [address] Jul, [facility] [address] [id number] [address] [place] [address], [place] [address] Jul, [facility] [address] [id number] [address] [place] [address], [place] [address] Jul, [facility] [address] [id number] [address] [place] [address], [place] [address] Jul, [facility] [address] [id number] [address] [place] [address], [place] [address] Jun, [facility] [address] [id number] [address] [place] [address], [place] [address] Jun, [facility] [address] [id number] [address] [place] [address], [place] [address] Jun, [facility] [address] [id number] [address] [place] [address], [place] [address] Jun, [facility] [address] [id number] [address] [place] [address], [place] [address] Jun, [facility] [address] [id number] [facility] [place] [place] [address] Jun, [facility] [address] [id number] [facility] [place] [address] Jun, [facility] [address] [id number] [facility] [place] [address] Jun, [facility] [address] [id number] [facility] [place] [address] Jun, [facility] [address] [id number] [facility] [place] [address] Jun, [facility] [address] [id number] [address] [place] [address], [place] [address] Jun, [facility] [address] [id number] [address] [place] [address], [place] [address] Jun, [facility] [address] [id number] [address] [place] [address], [place] [address] May, [facility] [address] [id number] [address] [place] [address], [place] [address] May, [facility] [address] [id number] [address] [place] [address], [place] [address] May, [facility] [address] [id number] [address] [place] [address], [place] [address] May, [facility] [address] [id number] [address] [place] [address], [place] [address] May, [facility] [address] [id number] [address] [place] [address], [place] [address] May, [facility] [address] [id number] [address] [place] [address], [place] [address] March, [facility] [address] [id number] [address] [place] [address], [place] [address] March, [facility] [address] [id number] [address] [place] [address], [place] [address] March, [facility] [address] [id number] [facility] [place] [address] March, [facility] [address] [id number] [address] [place] [address], [place] [address] March, [facility] [address] [id number] [address] [place] [address], [place] [address] March, [facility] [address] [id number] [address] [place] [address], [place] [address] Feb, [facility] [address] [id number] [address] [place] [address], [place] [address] Feb, [facility] [address] [id number] [address] [place] [address], [place] [address] Feb, [facility] [address] [id number] [address] [place] [address], [place] [address] Feb, [facility] [address] [id number] [address] [place] [address], [place] [address] Jan, [facility] [address] [id number] [address] [place] [address], [place] [address] Jan, [facility] [address] [id number] [address] [place] [address], [place] [address] Jan, [facility] [address] [id number] [address] [place] [address], [place] [address] Jan, [facility] [address] [id number] [address] [place] [address], [place] [address] Jan, [facility] [address] [id number] [address] [place] [address], [place] [address] Jan, [facility] [address] [id number] [address] [place] [address], [place] [address] Jan, [facility] [address] [id number] [address] [place] [address], [place] [address] Jan, [facility] [address] [id number] [address] [place] [address], [place] [address] Jan, [facility] [address] [id number] [address] [place] [address], [place] [address] Jan, [facility] [address] [id number] [address] [place] [address], [place] [address] Jan, [facility] [address] [id number] [address] [place] [address], [place] [address] Jan, [facility] [address] [id number] [address] [place] [address], [place] [address] Dec, [facility] [address] [id number] [address] [place] [address], [place] [address] Dec, [facility] [address] [id number] [address] [place] [address], [place] [address] Dec, [facility] [address] [id number] [address] [place] [address], [place] [address] Dec, [facility] [address] [id number] [address] [place] [address], [place] [address] Dec, [facility] [address] [id number] [address] [place] [address], [place] [address] Dec, [facility] [address] [id number] [address] [place] [address], [place] [address] Nov, [facility] [address] [id number] [address] [place] [address], [place] [address] Nov, [facility] [address] [id number] [address] [place] [address], [place] [address] Oct, [facility] [address] [id number] [address] [place] [address], [place] [address] Oct, [facility] [address] [id number] [address] [place] [address], [place] [address] Oct, [facility] [address] [id number] [address] [place] [address], [place] [address] Oct, [facility] [address] [id number] [address] [place] [address], [place] [address] Oct, [facility] [address] [id number] [address] [place] [address], [place] [address] Oct, [facility] [address] [id number] [address] [place] [address], [place] [address] Sep, [facility] [address] [id number] [address] [place] [address], [place] [address] Sep, [facility] [address] [id number] [address] [place] [address], [place] [address] Sep, [facility] [address] [id number] [address] [place] [address], [place] [address] Sep, [facility] [address] [id number] [address] [place] [address], [place] [address] Aug, [facility] [address] [id number] [address] [place] [address], [place] [address] Aug, [facility] [address] [id number] [address] [place] [address], [place] [address] Aug, [facility] [address] [id number] [address] [place] [address] Jul, [facility] [address] [id number] [address] [place] [address] 14 Jul, 2013 [facility] [address] [id number] [address] [place] [address] Jul, [facility] [address] [id number] [address] [place] [address], [place] [address] Jun, [facility] [address] [id number] [address] [place] [address], [place] [address] Jun, [facility] [address] [id number] [address] [place] [address] Jun, [facility] [address] [id number] [address] [place] [address] Apr, [facility] [address] [id number] [address] [place] [address], [place] [address] Apr, [facility] [address] [id number] [address] [place] [address], [place] [address] March, [facility] [address] [id number] [address] [place] [address], [place] [address] March, [facility] [address] [id number] [address] [place] [address], [place] [address] March, [facility] [address] [id number] [address] [place] [address], [place] [address] March, [facility] [address] [id number] [address] [place] [address], [place] [address] Feb, [facility] [address] [id number] [address] [place] [address], [place] [address] Jan, [facility] [address] [id number] [address] [place] [address], [place] [address] Dec, [facility] [address] [id number] [address] [place] [address], [place] [address] Dec, [facility] [address] [id number] [address] [place] [address], [place] [address] Dec, [facility] [address] [id number] [address] [place] [address], [place] [address] Nov, [facility] [address] [id number] [address] [place] [address], [place] [address] Oct, [facility] [address] [id number] [address] [place] [address], [place] [address] Oct, [facility] [address] [id number] [address] [place] [address], [place] [address] Sep, [facility] [address] [id number] [address] [place] [address], [place] [address] Sep, [facility] [address] [id number] [address] [place] [address], [place] [address] Sep, [facility] [address] [id number] [address] [place] [address], [place] [address] Sep, [facility] [address] [id number] [address] [place] [address], [place] [address] Sep, [facility] [address] [id number] [address] [place] [address], [place] [address] Sep, [facility] [address] [id number] [address] [place] [address], [place] [address] Sep, [facility] [address] [id number] [address] [place] [address], [place] [address] Aug, [facility] [address] [id number] [address] [place] [address], [place] [address] Aug, [facility] [address] [id number] [address] [place] [address], [place] [address] Aug, [facility] [address] [id number] [address] [place] [address], [place] [address] Aug, [facility] [address] [id number] [address] [place] [address], [place] [address] Aug, [facility] [address] [id number] [address] [place] [address], [place] [address] Aug, [facility] [address] [id number] [address] [place] [address], [place] [address] Aug, [facility] [address] [id number] [address] [place] [address], [place] [address] Aug, [facility] [address] [id number] [address] [place] [address], [place] [address] Jul, [facility] [address] [id number] [address] [place] [address], [place] [address] 12 Jul, 2012 [facility] [address] [id number] [address] [place] [address], [place] [address] Jun, [facility] [address] [id number] [address] [place] [address], [place] [address] May, [facility] [address] [id number] [address] [place] [address], [place] [address] Apr, [facility] [address] [id number] [address] [place] [address], [place] [address] Apr, [facility] [address] [id number] [address] [place] [address], [place] [address] Apr, [facility] [address] [id number] [address] [place] [address], [place] [address] March, [facility] [address] [id number] [address] [place] [address], [place] [address] March, [facility] [address] [id number] [address] [place] [address], [place] [address] March, [facility] [address] [id number] [address] [place] [address], [place] [address] March, [facility] [address] [id number] [address] [place] [address], [place] [address] March, [facility] [address] [id number] [address] [place] [address], [place] [address] March, [facility] [address] [id number] [address] [place] [address], [place] [address] March, [facility] [address] [id number] [address] [place] [address], [place] [address] Jan, [facility] [address] [id number] [address] [place] [address], [place] [address] Jan, [facility] [address] [id number] [address] [place] [address], [place] [address] Jan, [facility] [address] [id number] [address] [place] [address], [place] [address] Jan, [facility] [address] [id number] [address] [place] [address], [place] [address] Jan, [facility] [address] [id number] [address] [place] [address], [place] [address] Dec, [facility] [address] [id number] [address] [place] [address], [place] [address] Dec, [facility] [address] [id number] [address] [place] [address], [place] [address] Nov, [facility] [address] [id number] [address] [place] [address], [place] [address] Nov, [facility] [address] [id number] [address] [place] [address], [place] [address] Nov, [facility] [address] [id number] [address] [place] [address], [place] [address] Nov, [facility] [address] [id number] [address] [place] [address], [place] [address] Oct, [facility] [address] [id number] [address] [place] [address], [place] [address] Oct, [facility] [address] [id number] [address] [place] [address], [place] [address] 14 Sep, 2011 [facility] [address] [id number] [address] [place] [address], [place] [address] Sep, [facility] [address] [id number] [address] [place] [address], [place] [address] 10 Sep, 2011 [facility] [address] [id number] [address] [place] [address], [place] [address] May, [facility] [address] [id number] [address] [place] [address], [place] [address] 20 Nov, 2010 [facility] [address] [id number] [address] [place] [address], [place] [address] 29 Oct, 2010 [facility] [address] [id number] [address] [place] [address], [place] [address] 14 Oct, 2010 [facility] [address] [id number] [address] [place] [address], [place] [address] 08 Oct, 2010 [facility] [address] [id number] [address] [place] [address], [place] [address] 15 Sep, 2010 [facility] [address] [id number] [address] [place] [address], [place] [address] 02 Sep, 2010 [facility] [address] [id number] [address] [place] [address], [place] [address] Aug, [facility] [address] [id number] [address] [place] [address], [place] [address] March, [facility] [address] [id number] [address] [place] [address], [place] [address] 17 Oct, 2009 [facility] [address] [id number] [address] [place] [address], [place] [address] 17 Oct, 2009 [facility] [address] [id number] [address] [place] [phone] Oct, [facility] [address] [id number] [address] [place] [address], [place] [address] Oct, [facility] [address] [id number] [address] [place] [address] Sep, [facility] [address] [id number] [address] [place] [phone] Sep, [facility] [address] [id number] [address] [place] [phone] Sep, [facility] [address] [id number] [address] [place] [phone] Aug, [facility] [address] [id number] [address] [place] [id number] 24 Aug, 2009 [facility] [address] [id number] [address] [place] [phone] Aug, [facility] [address] [id number] [address] [place] [id number] 10 Jan, 2009 IMMUNIZATIONS No Known Immunizations SOCIAL HISTORY Never Assessed REASON FOR VISIT EMR-[facility] PLAN OF CARE VITAL SIGNS MEDICATIONS Unknown [...]
--- OUTSIDE RECORDS SUMMARY | 2020-06-13 16:13 | XMS REPORT ---
Author Author Jah Durant Doctor Organization [facility] Address Unknown Phone Unavailable Care Team Providers Care Tin Plater Name Role Phone Migration, Doctor Unavailable Unavailable PROBLEMS Type Condition ICD9-CM Code PUB36-HP Code Onset Dates Condition S tatus SNOMED Code Problem Hypothyroid E03.9 Active 73085664 Problem Neuropathy G62.9 Active 614586578 Problem Mixed hyperlipidemia E78.2 Active 033491079 Problem Overactive bladder N32.81 Active 2 16646702 Problem Gastroesophageal reflux disease with esophagitis K 21.0 Active 208388442 Problem Irritable bowel syndrome with diarrhea K58.0 Active 499438145 Problem Essential (primary) hypertension I10 Active 26114262 Problem retirement current use of insulin Z79.4 Active 640943987 Problem Current non-adherence to medical treatment Z91.19 Active 3075432 Problem Recurrent major depressive disorder, in partial remission F33.41 Active 43471554 Problem Chronic fatigue R53.82 Active 8422 9001 Problem 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 Active 633795892 Problem Pulmonary emphysema, unspecified emphysema type J4 3.9 Active 76887303 Problem Thrombocytosis D47.3 Active 66867 09 Problem Acquired hypothyroidism E03.9 Active 616680024 Problem Type 2 diabetes mellitus with hyperglycemia E11.65 Active 59506396 Problem Chronic pain G89.29 Active 3271845 1 Problem Anxiety disorder, unspecified type F41.9 Active 787348419 Problem Major depressive disorder, recurrent episode, moderate F33.1 Active 765258044 Problem Hypertriglyceridemia E78.1 Active 508087077 Problem Gastroparesis K31.84 Active 887695 006 ALLERGIES No Information ENCOUNTERS Encounter Location Date Diagnosis [facility] [address] [facility] [id number] [address] [place] [address] March, Chronic pain G89.29 [facility] [address] [facility] [id number] [address] [place] [address] March, [address] [address] Feb, [facility] [address] [facility] [id number] [address] [place] [address] 09 Feb, 2019 Other chronic pain G89.29 an d Chronic pain G89.29 [facility] [address] [facility] [id number] [address] [place] [address] Jan, Mixed hyperlipidemia E78.2 [facility] [address] [id number] [address] [place] [address] Jan, Chronic pain G89.29 [facility] [address] [facility] [id number] [address] [place] [address] Jan, Type 2 diabetes mellitus wit h hyperglycemia E11.65 ; Mixed hyperlipidemia E78.2 ; retirement current use of insulin Z79.4 ; Acquired hypothyroidism E03.9 and Essential (primary) hypertension I10 [facility] [address] [facility] [id number] [address] [place] [address] Dec, Chronic pain G89.29 [facility] [address] [facility] [id number] [address] [place] [address] Nov, Chronic pain G89.29 [facility] [address] [facility] [id number] [address] [place] [address] Nov, [facility] [address] [facility] [id number] [address] [place] [address] Oct, Chronic pain G89.29 [facility] [address] [facility] [id number] [address] [place] [address] Oct, [facility] [address] [facility] [id number] [address] [place] [address] Sep, [facility] [address] [facility] [id number] [address] [place] [address] Sep, Type 2 diabetes mellitus wit h hyperglycemia E11.65 [facility] [address] [facility] [id number] [address] [place] [address] Sep, Chronic pain G89.29 [place] [address] [place] [address] Sep, [place] [address] [place] [id number] [address] [place] [address] Sep, Type 2 diabetes mellitus wit h hyperglycemia E11.65 ; Irritable bowel syndrome with diarrhea K58.0 ; Gastroparesis K31.84 ; 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 and Dermatitis L30.9 [place] [address] [facility] [id number] [address] [place] [address] Aug, Chronic pain G89.29 [place] [address] [place] [id number] [address] [place] [address] Jul, Chronic pain G89.29 [place] [address] [place] [address] Jun, Type 2 diabetes mellitus wit h hyperglycemia E11.65 ; Neuropathy G62.9 ; Recurrent major depressive disorder, in partial remission F33.41 ; Chronic pain G89.29 and Hypertriglyceridemia E78.1 [place] [address] [address] Jun, Hypothyroid E03.9 [place] [address] [address] Jun, Major depressive disorder, r ecurrent episode, moderate F33.1 and Anxiety disorder, unspecified type F41.9 [place] [address] [place] [id number] [address] [place] [address] Jun, [place] [address] [address] Jun, Type 2 diabetes mellitus wit h hyperglycemia E11.65 ; 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 ; Recurrent major depressive disorder, in partial remission F33.41 ; Hypothyroid E03.9 ; Candidal dermatitis B37.2 and Weakness generalized R53.1 [place] [address] [place] [id number] [place] [address] May, [facility] [address] [id number] [address] [place] [address] May, [facility] [address] [id number] [address] [place] [address] May, [facility] [address] [id number] [address] [place] [address] May, Generalized abdominal pain R 10.84 and Candidal dermatitis B37.2 [facility] [address] [id number] [address] [place] [address] May, [facility] [address] [facility] [id number] [address] [place] [address] May, [place] [address] [facility] [id number] [address] [place] [address] May, Nodular radiologic density R 93.8 ; Weight loss, unintentional R63.4 and Pulmonary emphysema, unspecified emphysema type J43.9 [facility] [address] [facility] [id number] [address] [place] [address] May, Chronic pain G89.29 [place] [address] [facility] [id number] [address] [place] [address] May, Syncope and collapse R55 ; C hronic fatigue R53.[address] lung screening R91.8 [place] [address] [facility] [id number] [address] [place] [address] May, [facility] [address] [facility] [id number] [address] [place] [address] Apr, Chronic fatigue R53.82 ; Abn ormal chest CT R93.8 ; Elevated erythrocyte sedimentation rate R70.0 ; Hypothyroid E03.9 and Recurrent major depressive disorder, in partial remission F33.41 [facility] [address] [facility] [id number] [address] [place] [address] Apr, Hypothyroid E03.9 [place] [address] [facility] [id number] [address] [place] [address] Apr, Depression F32.9 [facility] [address] [facility] [id number] [address] [place] [address] Apr, [facility] [address] [facility] [id number] [address] [place] [address] March, [place] [address] [facility] [id number] [address] [place] [address] March, Hypothyroid E03.9 [place] [address] [facility] [id number] [address] [place] [address] March, Diabetes mellitus E11.9 and Hypothyroid E03.9 [place] [address] [place] [id number] [address] [place] [address] March, Diabetes mellitus E11.9 [place] [address] [facility] [id number] [address] [place] [address] March, Hypothyroid E03.9 and Elevat ed liver enzymes R74.8 [place] [address] [facility] [id number] [address] [place] [address] March, Type 2 diabetes mellitus wit h hyperglycemia E11.65 ; 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 ; Pulmonary emphysema, unspecified emphysema type J43.9 ; Hypothyroid E03.9 ; Neuropathy G62.9 ; Mixed hyperlipidemia E78.2 ; Chronic pain G89.29 ; Gastroesophageal reflux disease with esophagitis K21.0 ; Irritable bowel syndrome with diarrhea K58.0 ; Overactive bladder N32.81 and Recurrent major depressive disorder, in partial remission F33.41 [place] [address] [facility] [id number] [address] [place] [address] Feb, Chronic pain G89.29 [place] [address] [facility] [id number] [address] [place] [address] Feb, Type 2 diabetes mellitus wit h hyperglycemia E11.65 and Skin lesion of scalp L98.9 [place] [address] [place] [id number] [address] [place] [address] Feb, [place] [address] [place] [address] Jan, Type 2 diabetes mellitus wit h hyperglycemia E11.65 ; 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 ; Essential (primary) hypertension I10 ; Pulmonary emphysema, unspecified emphysema type J43.9 ; Chronic pain G89.29 ; Controlled substance agreement signed Z79.899 ; Hypothyroid E03.9 ; Neuropathy G62.9 ; Gastroesophageal reflux disease with esophagitis K21.0 ; Overactive bladder N32.81 ; Depression F32.9 and Irritable bowel syndrome with diarrhea K58.0 [place] [address] [place] [id number] [address] [place] [address] Jan, [place] [address] [place] [id number] [address] [place] [address] Jan, Controlled substance agreeme nt signed Z79.899 [place] [address] [place] [address] Dec, Type 2 diabetes mellitus wit h [...] treatment Z91.19 and Overweight (BMI 25.0-29.9) E66.3 [place] [address] [place] [id number] [address] [place] [address] Dec, Controlled substance agreeme nt signed Z79.899 [place] [address] [place] [id number] [address] [place] [address] Nov, Type 2 diabetes mellitus wit h hyperglycemia E11.65 and Current non- adherence to medical treatment Z91.19 [place] [address] [place] [address] [place] [address] Nov, [facility] [address] [id number] [address] [place] [address] Nov, Chronic pain G89.29 [facility] [address] [id number] [address] [place] [address] Nov, [facility] [address] [id number] [address] [place] [address] Nov, Hypothyroid E03.9 [facility] [address] [id number] [address] [place] [address] Nov, Hypothyroid E03.9 [facility] [address] [facility] [id number] [address] [place] [address] Nov, Pulmonary emphysema, unspeci fied emphysema type J43.9 and Irritable bowel syndrome with diarrhea K58.0 [facility] [address] [facility] [id number] [address] [place] [address] Oct, [facility] [address] [facility] [id number] [address] [place] [address] Oct, [facility] [address] [facility] [id number] [address] [place] [address] Oct, [facility] [address] [facility] [id number] [address] [place] [address] Oct, [facility] [address] [facility] [id number] [address] [place] [address] Oct, Chronic pain G89.29 [facility] [address] [facility] [id number] [address] [place] [address] Oct, Diabetes mellitus E11.9 ; De pression F32.9 ; Mixed hyperlipidemia E78.2 ; Hypotension, unspecified hypotension type I95.9 ; Pulmonary emphysema, unspecified emphysema type J43.9 and Weight loss, unintentional R63.4 [facility] [address] [facility] [id number] [address] [place] [address] Oct, Chronic pain G89.29 [facility] [address] [place] [id number] [address] [place] [address] Sep, Chronic pain G89.29 [facility] [address] [place] [id number] [address] [place] [address] Sep, Hypothyroid E03.9 and Diabet es mellitus E11.9 [facility] [address] [address] Aug, Type 2 diabetes mellitus wit h hyperglycemia E11.65 ; retirement current use of insulin Z79.4 ; Essential (primary) hypertension I10 ; Hypothyroid E03.9 ; Neuropathy G62.9 ; Chronic pain G89.29 ; Mixed hy perlipidemia E78.2 and Encounter for immunization Z23 [facility] [address] [address] Aug, Chronic pain G89.29 [facility] [address] [address] Aug, Overactive bladder N32.81 ; Diabetes mellitus E11.9 and Chronic pain G89.29 [facility] [address] [place] [id number] [address] [place] [address] Jul, [facility] [address] [address] Jun, [facility] [address] [place] [id number] [address] [place] [address] Jun, [facility] [address] [place] [id number] [address] [place] [address] Jun, Hypothyroid E03.9 [facility] [address] [place] [id number] [address] [place] [address] Jun, Diabetes mellitus E11.9 ; Hy pothyroid E03.9 ; Neuropathy G62.9 ; Chronic pain G89.29 and Neck mass R22.1 [facility] [address] [place] [id number] [address] [place] [address] Apr, [facility] [address] [facility] [id number] [address] [place] [address] Apr, Acute cystitis without hemat uria N30.00 [facility] [address] [facility] [id number] [address] [place] [address] March, [facility] [address] [facility] [id number] [address] [place] [address] March, [facility] [address] [facility] [id number] [address] [place] [address] March, Near syncope R55 [facility] [address] [facility] [id number] [address] [place] [address] Feb, [facility] [address] [place] [id number] [address] [place] [address] Feb, Chronic pain G89.29 [facility] [address] [facility] [id number] [address] [place] [address] Feb, [facility] [address] [facility] [id number] [address] [place] [address] Feb, [facility] [address] [facility] [id number] [address] [place] [address] Jan, Chronic pain G89.29 [facility] [address] [facility] [id number] [address] [place] [address] Jan, [facility] [address] [place] [id number] [address] [place] [address] Jan, [facility] [address] [facility] [id number] [address] [place] [address] Jan, Diabetes mellitus E11.9 ; Hy pothyroid E03.9 ; GERD (gastroesophageal reflux disease) K21.9 ; Insomnia G47.00 ; Functional 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 ; Neuropathy G62.9 ; Depression F32.9 ; Chronic pain G89.29 ; Irritable bowel syndrome with diarrhea K58.0 ; Overactive bladder N32.81 ; Mixed hyperlipidemia E78.2 and Bronchitis J40 [facility] [address] [facility] [id number] [address] [place] [address] Dec, [facility] [address] [facility] [id number] [address] [place] [address] Dec, [facility] [address] [place] [id number] [place] [address] Dec, [facility] [address] [place] [id number] [place] [address] Dec, [facility] [address] [place] [id number] [place] [address] Dec, Chronic pain G89.29 [facility] [address] [place] [id number] [place] [address] Dec, [facility] [address] [address] Dec, [facility] [address] [address] Dec, Type 2 diabetes mellitus wit h foot ulcer E11.621 [place] [id number] [address] 17 Dec, 2016 Type 2 diabetes mellitus wit h foot ulcer E11.621 [facility] [address] [address] 14 Dec, 2016 HTN (hypertension) I10 ; Dep ression F32.9 ; Type 2 diabetes mellitus with foot ulcer E11.621 ; Functional 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 ; Irritable bowel syndrome with diarrhea K58.0 ; Chronic pain G89.29 ; Insomnia G47.00 ; Overactive bladder N32.81 ; Mixed hyperlipidemia E78.2 ; Gastroesophageal reflux disease with esophagitis K21.0 and Acquired hypothyroidism E03.9 [facility] [address] [place] [id number] [address] [place] [address] Nov, [place] [address] [address] Oct, [place] [address] [address] Oct, [place] [address] [address] Oct, [place] [address] [address] Sep, Functional 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 ; HTN (hypertension) I10 ; Diabetes mellitus E11.9 ; Depression F32.9 ; Overactive bladder N32.81 ; Mixed hyperlipidemia E78.2 ; Gastroesophageal reflux disease without esophagitis K21.9 ; Chronic pain G89.29 ; Insomnia G47.00 and Acquired hypothyroidism E03.[address] [address] Sep, [address] [address] Aug, Encounter for immunization Z [address] [address] Aug, [place] [address] [address] 09 Jul, 2016 [place] [address] [address] Jun, Type 2 diabetes mellitus wit hout complications E11.9 ; HTN (hypertension) I10 ; Hypothyroid E03.9 ; Neuropathy G62.9 ; Depression F32.9 ; Chronic pain G89.29 ; GERD (gastroesophageal reflux disease) K21.9 ; Insomnia G47.00 ; Overactive bladder N32.81 ; Mixed hyperlipidemia E78.2 ; Diarrhea of infectious origin A09 and Environmental allergies Z91.09 [place] [address] [address] Apr, [address] [address] March, Hypothyroidism, unspecified E03.9 and Mixed hyperlipidemia E78.2 [place] [address] [address] March, Diabetes mellitus E11.9 ; HT N (hypertension) I10 ; Hypothyroid E03.9 ; Depression F32.9 ; Overactive bladder N32.81 ; Other chronic pain G89.29 ; Lumbago with sciatica, unspecified side M54.40 ; Environmental allergies Z91.09 and Gastroesophageal reflux disease, esophagitis presence not specified K21.9 [place] [address] [address] March, [place] [address] [address] Jan, HTN (hypertension) I10 ; Hyp othyroid E03.9 ; Neuropathy G62.9 ; Diabetes mellitus E11.9 ; Chronic pain G89.29 ; GERD (gastroesophageal reflux disease) K21.9 ; Overactive bladder N32.81 and Depression F32.9 [place] [address] [address] Dec, Ear pain, left H92.02 ; HTN (hypertension) I10 ; Hypothyroid E03.9 ; Neuropathy G62.9 ; Diabetes mellitus E11.9 ; Depression F32.9 ; GERD (gastroesophageal reflux disease) K21.9 ; Insomnia G47.00 and Overactive bladder N32.81 [place] [address] [place] [id number] [address] [place] [address] Nov, Overactive bladder N32.81 an d Chronic pain G89.29 [place] [address] [address] Nov, Kidney failure N19 [place] [address] [address] Nov, [place] [address] [address] Nov, [place] [address] [address] Nov, Diabetes mellitus E11.9 ; De pression F32.9 ; Chronic pain G89.29 ; GERD (gastroesophageal reflux disease) K21.9 ; Insomnia G47.00 ; HTN (hypertension) I10 ; Hypothyroid E03.9 ; COPD (chronic obstructive pulmonary disease) J44.9 ; Bladder incontinence R32 and Incontinence R32 [address] [address] Sep, Type 2 diabetes mellitus wit h foot ulcer E11.621 and Chromosomal abnormality, 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 [address] Sep, [address] [address] Aug, [address] [address] Aug, [address] [address] Aug, HTN (hypertension) I10 ; Enc ounter for immunization Z23 ; Hypothyroid E03.9 ; Neuropathy G62.9 ; Diabetes mellitus E11.9 ; Depression F32.9 ; Chronic pain G89.29 ; GERD (gastroesophageal reflux disease) K21.9 ; Insomnia G47.00 and COPD (chronic obstructive pulmonary disease) J44.9 [place] [address] [address] Jun, [address] [address] Jun, [address] [address] May, Essential hypertension, ivis gn 401.1 ; Unspecified hypothyroidism 244.9 ; Insomnia, unspecified 780.52 ; Shortness of breath 786.05 ; Depression 311 ; COPD (chronic obstructive pulmonary disease) 496 ; GERD (gastroesophageal reflux disease) 530.81 and Diabetes 1.5, 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 [facility] [address] [address] May, [facility] [address] [address] May, [facility] [address] [address] May, Shortness of breath 786.05 ; Essential hypertension, benign 401.1 ; Diabetes mellitus 250.00 ; Hyperlipidemia 272.4 ; Hypothyroid 244.9 ; Insomnia 780.52 and Cough 786.2 [facility] [address] [address] Apr, [facility] [address] [address] March, Shortness of breath 786.05 ; Nausea with vomiting 787.01 ; Essential hypertension, benign 401.1 ; Diabetes mellitus 250.00 ; Hyperlipidemia 272.4 and Hypothyroid 244.9 [facility] [address] [address] Feb, [facility] [address] [address] Feb, [facility] [address] [place] [id number] [address] [place] [id number] Jan, [facility] [address] [place] [id number] [address] [place] [id number] Jan, [facility] [address] [address] Jan, [facility] [address] [place] [id number] [address] [place] [id number] Jan, [facility] [address] [place] [id number] [address] [place] [id number] Jan, [facility] [address] [id number] [address] [place] [address], [place] [address] Jan, 2014 [facility] [address] [id number] [address] [place] [address], [place] [address] Jan, 2014 [facility] [address] [id number] [address] [place] [address], [place] [address] Jan, 2014 [facility] [address] [id number] [address] [place] [address], [place] [address] Jan, 2014 [facility] [address] [id number] [address] [place] [address], [place] [address] Jan, [facility] [address] [id number] [address] [place] [address], [place] [address] Dec, 2014 [facility] [address] [id number] [address] [place] [address], [place] [address] Dec, 2014 [facility] [address] [id number] [address] [place] [address], [place] [address] Dec, 2014 [facility] [address] [id number] [address] [place] [address], [place] [address] Dec, 2014 [facility] [address] [id number] [address] [place] [address], [place] [address] Dec, 2014 [facility] [address] [id number] [address] [place] [address], [place] [address] Dec, 2014 [facility] [address] [id number] [address] [place] [address], [place] [address] Dec, 2014 [facility] [address] [id number] [address] [place] [address], [place] [address] Dec, 2014 [facility] [address] [id number] [address] [place] [address], [place] [address] Dec, 2014 [facility] [address] [id number] [address] [place] [address], [place] [address] Dec, 2014 [facility] [address] [id number] [address] [place] [address], [place] [address] Oct, [facility] [address] [id number] [address] [place] [address], [place] [address] Oct, [facility] [address] [id number] [address] [place] [address], [place] [address] Oct, [facility] [address] [id number] [address] [place] [address], [place] [address] Oct, [facility] [address] [id number] [address] [place] [address], [place] [address] Oct, [facility] [address] [id number] [address] [place] [address], [place] [address] Oct, [facility] [address] [id number] [address] [place] [address], [place] [address] Oct, [facility] [address] [id number] [address] [place] [address], [place] [address] Oct, [facility] [address] [id number] [address] [place] [address], [place] [address] Oct, [facility] [address] [id number] [address] [place] [address], [place] [address] Oct, [facility] [address] [id number] [address] [place] [address], [place] [address] Oct, [facility] [address] [id number] [address] [place] [address], [place] [address] Oct, [facility] [address] [id number] [address] [place] [address], [place] [address] Oct, [facility] [address] [id number] [address] [place] [address], [place] [address] Oct, [facility] [address] [id number] [address] [place] [address], [place] [address] Sep, [facility] [address] [id number] [address] [place] [address], [place] [address] Sep, [facility] [address] [id number] [address] [place] [address], [place] [address] Sep, [facility] [address] [id number] [address] [place] [address], [place] [address] Sep, [facility] [address] [id number] [address] [place] [address], [place] [address] Sep, [facility] [address] [id number] [address] [place] [address], [place] [address] Sep, [facility] [address] [id number] [address] [place] [address], [place] [address] Sep, [facility] [address] [id number] [address] [place] [address], [place] [address] Sep, [facility] [address] [id number] [address] [place] [address], [place] [address] Sep, [facility] [address] [id number] [address] [place] [address], [place] [address] Aug, [facility] [address] [id number] [address] [place] [address], [place] [address] Aug, [facility] [address] [id number] [address] [place] [address], [place] [address] Aug, [facility] [address] [id number] [address] [place] [address], [place] [address] Aug, [facility] [address] [id number] [address] [place] [address], [place] [address] 16 Aug, 2014 [facility] [address] [id number] [address] [place] [address], [place] [address] Aug, [facility] [address] [id number] [address] [place] [address], [place] [address] Aug, [facility] [address] [id number] [address] [place] [address], [place] [address] Aug, [facility] [address] [id number] [address] [place] [address] Aug, [facility] [address] [id number] [facility] [place] [address] Jul, [facility] [address] [id number] [address] [place] [address], [place] [address] Jul, [facility] [address] [id number] [address] [place] [address], [place] [address] Jul, [facility] [address] [id number] [address] [place] [address], [place] [address] Jul, [facility] [address] [id number] [address] [place] [address], [place] [address] Jul, [facility] [address] [id number] [address] [place] [address], [place] [address] Jul, [facility] [address] [id number] [address] [place] [address], [place] [address] Jul, [facility] [address] [id number] [address] [place] [address], [place] [address] Jul, [facility] [address] [id number] [address] [place] [address], [place] [address] Jul, [facility] [address] [id number] [address] [place] [address], [place] [address] Jul, [facility] [address] [id number] [address] [place] [address], [place] [address] Jun, [facility] [address] [id number] [address] [place] [address], [place] [address] Jun, [facility] [address] [id number] [address] [place] [address], [place] [address] Jun, [facility] [address] [id number] [address] [place] [address], [place] [address] Jun, [facility] [address] [id number] [address] [place] [address], [place] [address] Jun, [facility] [address] [id number] [facility] [place] [address] Jun, [facility] [address] [id number] [facility] [place] [address] Jun, [facility] [address] [id number] [facility] [place] [address] Jun, [facility] [address] [id number] [facility] [place] [address] Jun, [facility] [address] [id number] [facility] [place] [address] Jun, [facility] [address] [id number] [address] [place] [address], [place] [address] Jun, [facility] [address] [id number] [address] [place] [address], [place] [address] Jun, [facility] [address] [id number] [address] [place] [address], [place] [address] May, [facility] [address] [id number] [address] [place] [address], [place] [address] May, [facility] [address] [id number] [address] [place] [address], [place] [address] May, [facility] [address] [id number] [address] [place] [address], [place] [address] May, [facility] [address] [id number] [address] [place] [address], [place] [address] May, [facility] [address] [id number] [address] [place] [address], [place] [address] May, [facility] [address] [id number] [address] [place] [address], [place] [address] March, [facility] [address] [id number] [address] [place] [address], [place] [address] March, [facility] [address] [id number] [address] [place] [address], [place] [address] March, [facility] [address] [id number] [facility] [place] [address] March, [facility] [address] [id number] [address] [place] [address], [place] [address] March, [facility] [address] [id number] [address] [place] [address], [place] [address] March, [facility] [address] [id number] [address] [place] [address], [place] [address] Feb, [facility] [address] [id number] [address] [place] [address], [place] [address] Feb, [facility] [address] [id number] [address] [place] [address], [place] [address] Feb, [facility] [address] [id number] [address] [place] [address], [place] [address] Feb, [facility] [address] [id number] [address] [place] [address], [place] [address] Jan, [facility] [address] [id number] [address] [place] [address], [place] [address] Jan, [facility] [address] [id number] [address] [place] [address], [place] [address] Jan, [facility] [address] [id number] [address] [place] [address], [place] [address] Jan, [facility] [address] [id number] [address] [place] [address], [place] [address] Jan, [facility] [address] [id number] [address] [place] [address], [place] [address] Jan, [facility] [address] [id number] [address] [place] [address], [place] [address] Jan, [facility] [address] [id number] [address] [place] [address], [place] [address] Jan, [facility] [address] [id number] [address] [place] [address], [place] [address] Jan, [facility] [address] [id number] [address] [place] [address], [place] [address] Jan, [facility] [address] [id number] [address] [place] [address], [place] [address] Jan, [facility] [address] [id number] [address] [place] [address], [place] [address] Jan, [facility] [address] [id number] [address] [place] [address], [place] [address] Dec, [facility] [address] [id number] [address] [place] [address], [place] [address] Dec, [facility] [address] [id number] [address] [place] [address], [place] [address] Dec, [facility] [address] [id number] [address] [place] [address], [place] [address] Dec, [facility] [address] [id number] [address] [place] [address], [place] [address] Dec, [facility] [address] [id number] [address] [place] [address], [place] [address] Dec, [facility] [address] [id number] [address] [place] [address], [place] [address] Nov, [facility] [address] [id number] [address] [place] [address], [place] [address] Nov, [facility] [address] [id number] [address] [place] [address], [place] [address] Oct, [facility] [address] [id number] [address] [place] [address], [place] [address] Oct, [facility] [address] [id number] [address] [place] [address], [place] [address] Oct, [facility] [address] [id number] [address] [place] [address], [place] [address] Oct, [facility] [address] [id number] [address] [place] [address], [place] [address] Oct, [facility] [address] [id number] [address] [place] [address], [place] [address] Oct, [facility] [address] [id number] [address] [place] [address], [place] [address] Sep, [facility] [address] [id number] [address] [place] [address], [place] [address] Sep, [facility] [address] [id number] [address] [place] [address], [place] [address] Sep, [facility] [address] [id number] [address] [place] [address], [place] [address] Sep, [facility] [address] [id number] [address] [place] [address], [place] [address] Aug, [facility] [address] [id number] [address] [place] [address], [place] [address] Aug, [facility] [address] [id number] [address] [place] [address], [place] [address] Aug, [facility] [address] [id number] [address] [place] [address] Jul, [facility] [address] [id number] [address] [place] [address] 14 Jul, 2013 [facility] [address] [id number] [address] [place] [address] Jul, [facility] [address] [id number] [address] [place] [address], [place] [address] Jun, [facility] [address] [id number] [address] [place] [address], [place] [address] Jun, [facility] [address] [id number] [address] [place] [address] Jun, [facility] [address] [id number] [address] [place] [address] Apr, [facility] [address] [id number] [address] [place] [address], [place] [address] Apr, [facility] [address] [id number] [address] [place] [address], [place] [address] March, [facility] [address] [id number] [address] [place] [address], [place] [address] March, [facility] [address] [id number] [address] [place] [address], [place] [address] March, [facility] [address] [id number] [address] [place] [address], [place] [address] March, [facility] [address] [id number] [address] [place] [address], [place] [address] Feb, [facility] [address] [id number] [address] [place] [address], [place] [address] Jan, [facility] [address] [id number] [address] [place] [address], [place] [address] Dec, [facility] [address] [id number] [address] [place] [address], [place] [address] Dec, [facility] [address] [id number] [address] [place] [address], [place] [address] Dec, [facility] [address] [id number] [address] [place] [address], [place] [address] Nov, [facility] [address] [id number] [address] [place] [address], [place] [address] Oct, [facility] [address] [id number] [address] [place] [address], [place] [address] Oct, [facility] [address] [id number] [address] [place] [address], [place] [address] Sep, [facility] [address] [id number] [address] [place] [address], [place] [address] Sep, [facility] [address] [id number] [address] [place] [address], [place] [address] Sep, [facility] [address] [id number] [address] [place] [address], [place] [address] Sep, [facility] [address] [id number] [address] [place] [address], [place] [address] Sep, [facility] [address] [id number] [address] [place] [address], [place] [address] Sep, [facility] [address] [id number] [address] [place] [address], [place] [address] Sep, [facility] [address] [id number] [address] [place] [address], [place] [address] Aug, [facility] [address] [id number] [address] [place] [address], [place] [address] Aug, [facility] [address] [id number] [address] [place] [address], [place] [address] Aug, [facility] [address] [id number] [address] [place] [address], [place] [address] Aug, [facility] [address] [id number] [address] [place] [address], [place] [address] Aug, [facility] [address] [id number] [address] [place] [address], [place] [address] Aug, [facility] [address] [id number] [address] [place] [address], [place] [address] Aug, [facility] [address] [id number] [address] [place] [address], [place] [address] Aug, [facility] [address] [id number] [address] [place] [address], [place] [address] Jul, [facility] [address] [id number] [address] [place] [address], [place] [address] 12 Jul, 2012 [facility] [address] [id number] [address] [place] [address], [place] [address] Jun, [facility] [address] [id number] [address] [place] [address], [place] [address] May, [facility] [address] [id number] [address] [place] [address], [place] [address] Apr, [facility] [address] [id number] [address] [place] [address], [place] [address] Apr, [facility] [address] [id number] [address] [place] [address], [place] [address] Apr, [facility] [address] [id number] [address] [place] [address], [place] [address] March, [facility] [address] [id number] [address] [place] [address], [place] [address] March, [facility] [address] [id number] [address] [place] [address], [place] [address] March, [facility] [address] [id number] [address] [place] [address], [place] [address] March, [facility] [address] [id number] [address] [place] [address], [place] [address] March, [facility] [address] [id number] [address] [place] [address], [place] [address] March, [facility] [address] [id number] [address] [place] [address], [place] [address] March, [facility] [address] [id number] [address] [place] [address], [place] [address] Jan, [facility] [address] [id number] [address] [place] [address], [place] [address] Jan, [facility] [address] [id number] [address] [place] [address], [place] [address] Jan, [facility] [address] [id number] [address] [place] [address], [place] [address] Jan, [facility] [address] [id number] [address] [place] [address], [place] [address] Jan, [facility] [address] [id number] [address] [place] [address], [place] [address] Dec, [facility] [address] [id number] [address] [place] [address], [place] [address] Dec, [facility] [address] [id number] [address] [place] [address], [place] [address] Nov, [facility] [address] [id number] [address] [place] [address], [place] [address] Nov, [facility] [address] [id number] [address] [place] [address], [place] [address] Nov, [facility] [address] [id number] [address] [place] [address], [place] [address] Nov, [facility] [address] [id number] [address] [place] [address], [place] [address] Oct, [facility] [address] [id number] [address] [place] [address], [place] [address] Oct, [facility] [address] [id number] [address] [place] [address], [place] [address] 14 Sep, 2011 [facility] [address] [id number] [address] [place] [address], [place] [address] Sep, [facility] [address] [id number] [address] [place] [address], [place] [address] 10 Sep, 2011 [facility] [address] [id number] [address] [place] [address], [place] [address] May, [facility] [address] [id number] [address] [place] [address], [place] [address] 20 Nov, 2010 [facility] [address] [id number] [address] [place] [address], [place] [address] 29 Oct, 2010 [facility] [address] [id number] [address] [place] [address], [place] [address] 14 Oct, 2010 [facility] [address] [id number] [address] [place] [address], [place] [address] 08 Oct, 2010 [facility] [address] [id number] [address] [place] [address], [place] [address] 15 Sep, 2010 [facility] [address] [id number] [address] [place] [address], [place] [address] 02 Sep, 2010 [facility] [address] [id number] [address] [place] [address], [place] [address] Aug, [facility] [address] [id number] [address] [place] [address], [place] [address] March, [facility] [address] [id number] [address] [place] [address], [place] [address] 17 Oct, 2009 [facility] [address] [id number] [address] [place] [address], [place] [address] 17 Oct, 2009 [facility] [address] [id number] [address] [place] [address] Oct, [facility] [address] [id number] [address] [place] [address], [place] [address] Oct, [facility] [address] [id number] [address] [place] [address] Sep, [facility] [address] [id number] [address] [place] [address] Sep, [facility] [address] [id number] [address] [place] [address] Sep, [facility] [address] [id number] [address] [place] [address] Aug, [facility] [address] [id number] [address] [place] [address] 24 Aug, 2009 [facility] [address] [id number] [address] [place] [address] Aug, [facility] [address] [id number] [address] [place] [address] 10 Jan, 2009 IMMUNIZATIONS No Known Immunizations SOCIAL HISTORY Never Assessed REASON FOR VISIT [place] [place] VITAL SIGNS MEDICATIONS Unknown [...]
--- OUTSIDE RECORDS SUMMARY | 2020-06-13 16:14 | XMS REPORT ---
Author Author Jah Durant Doctor Organization [facility] Address Unknown Phone Unavailable Care Team Providers Care Security Compliance Engineer Name Role Phone Migration, Doctor Unavailable Unavailable PROBLEMS Type Condition ICD9-CM Code VWO50-LT Code Onset Dates Condition S tatus SNOMED Code Problem Hypothyroid E03.9 Active 34751503 Problem Neuropathy G62.9 Active 771090291 Problem Mixed hyperlipidemia E78.2 Active 265429853 Problem Overactive bladder N32.81 Active 2 04811140 Problem Irritable bowel syndrome with diarrhea K58.0 Active 746194955 Problem Gastroesophageal reflux disease with esophagitis K 21.0 Active 784159312 Problem Type 2 diabetes mellitus with hyperglycemia E11.65 Active 69347827 Problem [facility] current use of insulin Z79.4 Active 026237571 Problem Current non-adherence to medical treatment Z91.19 Active 2331500 Problem Recurrent major depressive disorder, in partial remission F33.41 Active 37138534 Problem Chronic fatigue R53.82 Active 8422 9001 Problem 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 Active 982472285 Problem Pulmonary emphysema, unspecified emphysema type J4 3.9 Active 96546029 Problem Thrombocytosis D47.3 Active 92816 09 Problem Acquired hypothyroidism E03.9 Active 591209004 Problem Essential (primary) hypertension I10 Active 71001846 Problem Chronic pain G89.29 Active 2773958 1 Problem Anxiety disorder, unspecified type F41.9 Active 486007323 Problem Major depressive disorder, recurrent episode, moderate F33.1 Active 882780584 Problem Hypertriglyceridemia E78.1 Active 912645411 Problem Gastroparesis K31.84 Active 693580 006 ALLERGIES No Information ENCOUNTERS Encounter Location Date Diagnosis [address] [id number] Feb, [facility] [address] [facility] [id number] [address] [address] Feb, Other chronic pain G89.29 an d Chronic pain G89.29 [facility] [address] [facility] [id number] [address] [place] [id number] 18 Jan, 2019 Mixed hyperlipidemia E78.2 [facility] [address] [facility] [id number] [address] [place] [address] 11 Jan, 2019 Chronic pain G89.29 [facility] [address] [facility] [id number] [address] [place] [id number] 08 Jan, 2019 Type 2 diabetes mellitus wit h hyperglycemia E11.65 ; Mixed hyperlipidemia E78.2 ; [facility] current use of insulin Z79.4 ; Acquired hypothyroidism E03.9 and Essential (primary) hypertension I10 [facility] [address] [facility] [id number] [address] [place] [address] Dec, Chronic pain G89.29 [facility] [address] [facility] [id number] [address] [place] [address] 14 Nov, 2018 Chronic pain G89.29 [facility] [address] [facility] [id number] [address] [place] [address] Nov, [facility] [address] [facility] [id number] [address] [place] [id number] Oct, Chronic pain G89.29 [facility] [address] [place] [id number] [address] [place] [address] Oct, [facility] [address] [facility] [id number] [address] [place] [id number] Sep, [facility] [address] [facility] [id number] [address] [place] [address] Sep, Type 2 diabetes mellitus wit h hyperglycemia E11.65 [facility] [address] [facility] [id number] [address] [place] [address] 16 Sep, 2018 Chronic pain G89.29 [facility] [address] 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 [id number] [address] [place] [address] Aug, Chronic pain G89.29 [place] [address] [facility] [id number] [address] [place] [address] Jul, Chronic pain G89.29 [place] [address] [place] [id number] [address] [place] [address] Jun, Type 2 diabetes mellitus wit h hyperglycemia E11.65 ; Neuropathy G62.9 ; Recurrent major depressive disorder, in partial remission F33.41 ; Chronic pain G89.29 and Hypertriglyceridemia E78.1 [place] [address] [place] [id number] [address] [place] [address] Jun, Hypothyroid E03.9 [place] [address] [place] [id number] [address] [place] [address] Jun, Major depressive disorder, r ecurrent episode, moderate F33.1 and Anxiety disorder, unspecified type F41.9 [place] [address] [place] [id number] [address] [place] [phone] Jun, [place] [id number] [place] [address] Jun, Type 2 diabetes mellitus wit h hyperglycemia E11.65 ; 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 Z79.4 ; Recurrent major depressive disorder, in partial remission F33.41 ; Hypothyroid E03.9 ; Candidal dermatitis B37.2 and Weakness generalized R53.1 [place] [address] [place] [id number] [address] [place] [address] May, [place] [address] [place] [id number] [address] [place] [address] May, [place] [address] [place] [id number] [address] [place] [address] May, [facility] [address] [facility] [id number] [address] [place] [address] May, Generalized abdominal pain R 10.84 and Candidal dermatitis B37.2 [place] [address] [facility] [id number] [address] [place] [address] May, [place] [address] [place] [id number] [place] [address] May, [place] [address] [facility] [id number] [place] [address] May, Nodular radiologic density R 93.8 ; Weight loss, unintentional R63.4 and Pulmonary emphysema, unspecified emphysema type J43.9 [place] [address] [place] [id number] [place] [address] May, Chronic pain G89.29 [place] [address] [address] May, Syncope and collapse R55 ; C hronic fatigue R53.[address] lung screening R91.8 [place] [address] [place] [id number] [place] [address] May, [place] [address] [place] [id number] [place] [address] Apr, Chronic fatigue R53.82 ; Abn ormal chest CT R93.8 ; Elevated erythrocyte sedimentation rate R70.0 ; Hypothyroid E03.9 and Recurrent major depressive disorder, in partial remission F33.41 [place] [address] [facility] [id number] [address] [place] [id number] Apr, Hypothyroid E03.9 [place] [address] [facility] [id number] [address] [place] [address] Apr, Depression F32.9 [place] [address] [facility] [id number] [address] [place] [id number] Apr, [place] [address] [facility] [id number] [address] [place] [phone] March, [place] [address] [facility] [id number] [address] [place] [phone] March, Hypothyroid E03.9 [place] [address] [facility] [id number] [address] [place] [phone] March, Diabetes mellitus E11.9 and Hypothyroid E03.9 [place] [address] [facility] [id number] [address] [place] [phone] March, Diabetes mellitus E11.9 [place] [address] [facility] [id number] [address] [place] [id number] March, Hypothyroid E03.9 and Elevat ed liver enzymes R74.8 [place] [address] [facility] [id number] [address] [place] [address] March, Type 2 diabetes mellitus wit h hyperglycemia E11.65 ; 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 Z79.4 ; Pulmonary emphysema, unspecified emphysema type J43.9 ; Hypothyroid E03.9 ; Neuropathy G62.9 ; Mixed hyperlipidemia E78.2 ; Chronic pain G89.29 ; Gastroesophageal reflux disease with esophagitis K21.0 ; Irritable bowel syndrome with diarrhea K58.0 ; Overactive bladder N32.81 and Recurrent major depressive disorder, in partial remission F33.41 [place] [address] [facility] [id number] [address] [place] [address] Feb, Chronic pain G89.29 [place] [address] [facility] [id number] [address] [place] [address] Feb, Type 2 diabetes mellitus wit h hyperglycemia E11.65 and Skin lesion of scalp L98.9 [place] [address] [facility] [id number] [address] [place] [id number] Feb, [place] [address] [facility] [id number] [address] [place] [address] Jan, Type 2 diabetes mellitus wit h hyperglycemia E11.65 ; [facility] current use of insulin Z79.4 ; Essential (primary) hypertension I10 ; Pulmonary emphysema, unspecified emphysema type J43.9 ; Chronic pain G89.29 ; Controlled substance agreement signed Z79.899 ; Hypothyroid E03.9 ; Neuropathy G62.9 ; Gastroesophageal reflux disease with esophagitis K21.0 ; Overactive bladder N32.81 ; Depression F32.9 and Irritable bowel syndrome with diarrhea K58.0 [place] [address] [id number] [address] [place] [id number] Jan, [place] [address] [facility] [id number] [address] [place] [address] Jan, Controlled substance agreeme nt signed Z79.899 [place] [address] [place] [id number] [address] [place] [address] Dec, Type 2 diabetes mellitus wit h [...] treatment Z91.19 and Overweight (BMI 25.0-29.9) E66.3 [place] [address] [place] [id number] [address] [place] [address] Dec, Controlled substance agreeme nt signed Z79.899 [place] [address] [facility] [id number] [address] [place] [address] Nov, Type 2 diabetes mellitus wit h hyperglycemia E11.65 and Current non- adherence to medical treatment Z91.19 [place] [address] [facility] [id number] [address] [place] [address] Nov, [place] [address] [facility] [id number] [address] [place] [address] Nov, Chronic pain G89.29 [place] [address] [id number] [address] [place] [address] Nov, [facility] [address] [id number] [address] [place] [address] Nov, Hypothyroid E03.9 [facility] [address] [id number] [address] [place] [id number] Nov, Hypothyroid E03.9 [facility] [address] [id number] [address] [place] [address] Nov, Pulmonary emphysema, unspeci fied emphysema type J43.9 and Irritable bowel syndrome with diarrhea K58.0 [facility] [address] [id number] [address] [place] [id number] Oct, [facility] [address] [id number] [address] [place] [address] Oct, [facility] [address] [facility] [id number] [address] [place] [id number] Oct, [facility] [address] [id number] [address] [place] [id number] Oct, [facility] [address] [facility] [id number] [address] [place] [address] Oct, Chronic pain G89.29 [facility] [address] [facility] [id number] [address] [place] [id number] Oct, Diabetes mellitus E11.9 ; De pression F32.9 ; Mixed hyperlipidemia E78.2 ; Hypotension, unspecified hypotension type I95.9 ; Pulmonary emphysema, unspecified emphysema type J43.9 and Weight loss, unintentional R63.4 [facility] [address] [facility] [id number] [address] [place] [id number] Oct, Chronic pain G89.29 [facility] [address] [facility] [id number] [address] [place] [address] Sep, Chronic pain G89.29 [facility] [address] [facility] [id number] [address] [place] [address] Sep, Hypothyroid E03.9 and Diabet es mellitus E11.9 [place] [id number] [place] [id number] [address] [place] [id number] Aug, Type 2 diabetes mellitus wit h hyperglycemia E11.65 ; [facility] current use of insulin Z79.4 ; Essential (primary) hypertension I10 ; Hypothyroid E03.9 ; Neuropathy G62.9 ; Chronic pain G89.29 ; Mixed hy perlipidemia E78.2 and Encounter for immunization Z23 [facility] [address] [facility] [id number] [address] [place] [address] Aug, Chronic pain G89.29 [place] [address] [place] [id number] [place] [address] Aug, Overactive bladder N32.81 ; Diabetes mellitus E11.9 and Chronic pain G89.29 [place] [address] [place] [id number] [address] [place] [address] Jul, [place] [address] [place] [id number] [address] [place] [id number] Jun, [place] [address] [address] Jun, [place] [address] [place] [id number] [address] [place] [address] Jun, Hypothyroid E03.9 [place] [address] [place] [id number] [address] [place] [address] Jun, Diabetes mellitus E11.9 ; Hy pothyroid E03.9 ; Neuropathy G62.9 ; Chronic pain G89.29 and Neck mass R22.1 [place] [address] [place] [id number] [address] [place] [address] Apr, [place] [address] [place] [id number] [address] [place] [address] Apr, Acute cystitis without hemat uria N30.00 [place] [address] [place] [id number] [address] [place] [id number] March, [facility] [address] [facility] [id number] [address] [place] [address] March, [facility] [address] [place] [id number] [address] [place] [address] March, Near syncope R55 [facility] [address] [place] [id number] [place] [address] Feb, [facility] [address] [place] [id number] [place] [address] Feb, Chronic pain G89.29 [facility] [address] [place] [id number] [place] [address] Feb, [facility] [address] [place] [id number] [address] [place] [address] Feb, [facility] [address] [place] [id number] [place] [address] Jan, Chronic pain G89.29 [facility] [address] [place] [id number] [address] [place] [id number] Jan, [facility] [address] [place] [id number] [address] [place] [id number] Jan, [facility] [address] [place] [id number] [address] [place] [id number] Jan, Diabetes mellitus E11.9 ; Hy pothyroid E03.9 ; GERD (gastroesophageal reflux disease) K21.9 ; Insomnia G47.00 ; Functional 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 ; Neuropathy G62.9 ; Depression F32.9 ; Chronic pain G89.29 ; Irritable bowel syndrome with diarrhea K58.0 ; Overactive bladder N32.81 ; Mixed hyperlipidemia E78.2 and Bronchitis J40 [facility] [address] [place] [id number] [address] [place] [id number] Dec, [facility] [address] [place] [id number] [address] [place] [phone] Dec, [facility] [address] [facility] [id number] [address] [place] [id number] Dec, [facility] [address] [facility] [id number] [address] [place] [address] Dec, [facility] [address] [facility] [id number] [address] [place] [address] Dec, Chronic pain G89.29 [facility] [address] [facility] [id number] [address] [place] [address] Dec, [facility] [address] [facility] [id number] [address] [place] [id number] Dec, [facility] [address] [facility] [id number] [address] [place] [address] Dec, Type 2 diabetes mellitus wit h foot ulcer E11.621 [facility] [address] [place] [id number] [address] [place] [address] Dec, Type 2 diabetes mellitus wit h foot ulcer E11.621 [facility] [id number] [place] [address] Dec, HTN (hypertension) I10 ; Dep ression F32.9 ; Type 2 diabetes mellitus with foot ulcer E11.621 ; Functional 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 ; Irritable bowel syndrome with diarrhea K58.0 ; Chronic pain G89.29 ; Insomnia G47.00 ; Overactive bladder N32.81 ; Mixed hyperlipidemia E78.2 ; Gastroesophageal reflux disease with esophagitis K21.0 and Acquired hypothyroidism E03.9 [facility] [address] [facility] [id number] [address] [place] [address] Nov, [facility] [address] [place] [id number] [address] [place] [phone] Oct, [facility] [address] [place] [address] Oct, [facility] [address] [place] [id number] [place] [address] Oct, [place] [address] [address] Sep, Functional 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 ; HTN (hypertension) I10 ; Diabetes mellitus E11.9 ; Depression F32.9 ; Overactive bladder N32.81 ; Mixed hyperlipidemia E78.2 ; Gastroesophageal reflux disease without esophagitis K21.9 ; Chronic pain G89.29 ; Insomnia G47.00 and Acquired hypothyroidism E03.9 [place] [address] [address] Sep, [place] [address] [address] Aug, Encounter for immunization Z 23 [place] [address] [address] Aug, [place] [address] [address] Jul, [place] [address] [address] Jun, Type 2 diabetes mellitus wit hout complications E11.9 ; HTN (hypertension) I10 ; Hypothyroid E03.9 ; Neuropathy G62.9 ; Depression F32.9 ; Chronic pain G89.29 ; GERD (gastroesophageal reflux disease) K21.9 ; Insomnia G47.00 ; Overactive bladder N32.81 ; Mixed hyperlipidemia E78.2 ; Diarrhea of infectious origin A09 and Environmental allergies Z91.09 [place] [address] [place] [id number] [address] [place] [address] Apr, [place] [address] [address] March, Hypothyroidism, unspecified E03.9 and Mixed hyperlipidemia E78.2 [place] [address] [address] March, Diabetes mellitus E11.9 ; HT N (hypertension) I10 ; Hypothyroid E03.9 ; Depression F32.9 ; Overactive bladder N32.81 ; Other chronic pain G89.29 ; Lumbago with sciatica, unspecified side M54.40 ; Environmental allergies Z91.09 and Gastroesophageal reflux disease, esophagitis presence not specified K21.9 [place] [address] [address] March, [place] [address] [address] Jan, HTN (hypertension) I10 ; Hyp othyroid E03.9 ; Neuropathy G62.9 ; Diabetes mellitus E11.9 ; Chronic pain G89.29 ; GERD (gastroesophageal reflux disease) K21.9 ; Overactive bladder N32.81 and Depression F32.9 [place] [address] [address] 12 Dec, 2015 Ear pain, left H92.02 ; HTN (hypertension) I10 ; Hypothyroid E03.9 ; Neuropathy G62.9 ; Diabetes mellitus E11.9 ; Depression F32.9 ; GERD (gastroesophageal reflux disease) K21.9 ; Insomnia G47.00 and Overactive bladder N32.81 [place] [address] [address] Nov, Overactive bladder N32.81 an d Chronic pain G89.29 [place] [address] [address] Nov, Kidney failure N19 [place] [address] [address] [place] [id number] [place] [address] Nov, [place] [address] [address] Nov, [place] [address] [address] [place] [id number] [place] [address] Nov, Diabetes mellitus E11.9 ; De pression F32.9 ; Chronic pain G89.29 ; GERD (gastroesophageal reflux disease) K21.9 ; Insomnia G47.00 ; HTN (hypertension) I10 ; Hypothyroid E03.9 ; COPD (chronic obstructive pulmonary disease) J44.9 ; Bladder incontinence R32 and Incontinence R32 [address] [address] Sep, Type 2 diabetes mellitus wit h foot ulcer E11.621 and Chromosomal abnormality, 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 [address] Sep, [address] [address] Aug, [address] [address] Aug, [address] [address] Aug, HTN (hypertension) I10 ; Enc ounter for immunization Z23 ; Hypothyroid E03.9 ; Neuropathy G62.9 ; Diabetes mellitus E11.9 ; Depression F32.9 ; Chronic pain G89.29 ; GERD (gastroesophageal reflux disease) K21.9 ; Insomnia G47.00 and COPD (chronic obstructive pulmonary disease) J44.[address] [address] Jun, [address] [address] Jun, [address] [address] May, Essential hypertension, ivis gn 401.1 ; Unspecified hypothyroidism 244.9 ; Insomnia, unspecified 780.52 ; Shortness of breath 786.05 ; Depression 311 ; COPD (chronic obstructive pulmonary disease) 496 ; GERD (gastroesophageal reflux disease) 530.81 and Diabetes 1.5, 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 [address] May, [address] [id number] [address] [place] [id number] May, [facility] [address] [facility] [id number] [address] [place] [address] May, Shortness of breath 786.05 ; Essential hypertension, benign 401.1 ; Diabetes mellitus 250.00 ; Hyperlipidemia 272.4 ; Hypothyroid 244.9 ; Insomnia 780.52 and Cough 786.2 [facility] [address] [facility] [id number] [address] [place] [id number] Apr, [facility] [address] [facility] [id number] [address] [place] [id number] March, Shortness of breath 786.05 ; Nausea with vomiting 787.01 ; Essential hypertension, benign 401.1 ; Diabetes mellitus 250.00 ; Hyperlipidemia 272.4 and Hypothyroid 244.9 [facility] [address] [facility] [id number] [address] [place] [id number] Feb, [facility] [address] [facility] [id number] [address] [place] [id number] Feb, [facility] [address] [facility] [id number] [address] [place] [id number] Jan, [facility] [address] [facility] [id number] [address] [place] [id number] Jan, [facility] [address] [facility] [id number] [address] [place] [phone] Jan, [facility] [address] [facility] [id number] [address] [place] [phone] Jan, [facility] [address] [facility] [id number] [address] [place] [id number] Jan, [facility] [address] [place] [id number] [address] [place] [phone] Jan, [facility] [address] [facility] [id number] [address] [place] [phone] Jan, [facility] [address] [id number] [address] [place] [address], [place] [address] Jan, [facility] [address] [id number] [address] [place] [address], [place] [address] Jan, [facility] [address] [id number] [address] [place] [address], [place] [address] Jan, [facility] [address] [id number] [address] [place] [address], [place] [address] Dec, 2014 [facility] [address] [id number] [address] [place] [address], [place] [address] Dec, 2014 [facility] [address] [id number] [address] [place] [address], [place] [address] Dec, 2014 [facility] [address] [id number] [address] [place] [address], [place] [address] Dec, 2014 [facility] [address] [id number] [address] [place] [address], [place] [address] Dec, 2014 [facility] [address] [id number] [address] [place] [address], [place] [address] Dec, 2014 [facility] [address] [id number] [address] [place] [address], [place] [address] Dec, 2014 [facility] [address] [id number] [address] [place] [phone] Dec, 2014 [facility] [address] [id number] [address] [place] [id number] Dec, 2014 [facility] [address] [id number] [address] [place] [address], [place] [address] Dec, [facility] [address] [id number] [address] [place] [id number] Oct, [facility] [address] [id number] [address] [place] [id number] Oct, [facility] [address] [id number] [address] [place] [id number] Oct, [facility] [address] [id number] [address] [place] [address], [place] [address] Oct, [facility] [address] [id number] [address] [place] [address], [place] [address] Oct, [facility] [address] [id number] [address] [place] [address], [place] [address] Oct, [facility] [address] [id number] [address] [place] [address], [place] [address] Oct, [facility] [address] [id number] [address] [place] [address], [place] [address] Oct, [facility] [address] [id number] [address] [place] [address], [place] [address] Oct, [facility] [address] [id number] [address] [place] [address], [place] [address] Oct, [facility] [address] [id number] [address] [place] [address], [place] [address] Oct, [facility] [address] [id number] [address] [place] [address], [place] [address] Oct, [facility] [address] [id number] [address] [place] [address], [place] [address] Oct, [facility] [address] [id number] [address] [place] [address], [place] [address] Oct, [facility] [address] [id number] [address] [place] [address], [place] [address] Sep, [facility] [address] [id number] [address] [place] [address], [place] [address] Sep, [facility] [address] [id number] [address] [place] [address], [place] [address] Sep, [facility] [address] [id number] [address] [place] [address], [place] [address] Sep, [facility] [address] [id number] [address] [place] [address], [place] [address] 18 Sep, 2014 [facility] [address] [id number] [address] [place] [address], [place] [address] Sep, [facility] [address] [id number] [address] [place] [address], [place] [address] Sep, [facility] [address] [id number] [address] [place] [address], [place] [address] Sep, [facility] [address] [id number] [address] [place] [address], [place] [address] Sep, [facility] [address] [id number] [address] [place] [address], [place] [address] Aug, [facility] [address] [id number] [address] [place] [address], [place] [address] Aug, [facility] [address] [id number] [address] [place] [address], [place] [address] Aug, [facility] [address] [id number] [address] [place] [address], [place] [address] Aug, [facility] [address] [id number] [address] [place] [address], [place] [address] 16 Aug, 2014 [facility] [address] [id number] [address] [place] [address], [place] [address] Aug, [facility] [address] [id number] [address] [place] [address], [place] [address] Aug, [facility] [address] [id number] [address] [place] [address], [place] [address] Aug, [facility] [address] [id number] [address] [place] [address], [place] [address] Aug, [facility] [address] [id number] [address] [place] [address], [place] [address] 29 Jul, 2014 [facility] [address] [id number] [address] [place] [address], [place] [address] Jul, [facility] [address] [id number] [facility] [place] [address] Jul, [facility] [address] [id number] [facility] [place] [address] Jul, [facility] [address] [id number] [facility] [place] [address] Jul, [facility] [address] [id number] [address] [place] [address], [place] [address] Jul, [facility] [address] [id number] [address] [place] [address], [place] [address] Jul, [facility] [address] [id number] [address] [place] [address], [place] [address] Jul, [facility] [address] [id number] [address] [place] [address], [place] [address] Jul, [facility] [address] [id number] [address] [place] [address], [place] [address] Jul, [facility] [address] [id number] [address] [place] [address], [place] [address] Jun, [facility] [address] [id number] [address] [place] [address], [place] [address] Jun, [facility] [address] [id number] [address] [place] [address], [place] [address] Jun, [facility] [address] [id number] [address] [place] [address], [place] [address] Jun, [facility] [address] [id number] [address] [place] [address], [place] [address] Jun, [facility] [address] [id number] [address] [place] [address], [place] [address] Jun, [facility] [address] [id number] [address] [place] [address], [place] [address] Jun, [facility] [address] [id number] [facility] [place] [address] Jun, [facility] [address] [id number] [address] [place] [address], [place] [address] Jun, [facility] [address] [id number] [address] [place] [address], [place] [address] Jun, [facility] [address] [id number] [address] [place] [address], [place] [address] Jun, [facility] [address] [id number] [address] [place] [address], [place] [address] Jun, [facility] [address] [id number] [address] [place] [address], [place] [address] May, [facility] [address] [id number] [address] [place] [address], [place] [address] May, [facility] [address] [id number] [address] [place] [address], [place] [address] May, [facility] [address] [id number] [address] [place] [address], [place] [address] May, [facility] [address] [id number] [address] [place] [address], [place] [address] May, [facility] [address] [id number] [address] [place] [address], [place] [address] May, [facility] [address] [id number] [address] [place] [address], [place] [address] March, [facility] [address] [id number] [address] [place] [address], [place] [address] March, [facility] [address] [id number] [address] [place] [address], [place] [address] March, [facility] [address] [id number] [address] [place] [address], [place] [address] March, [facility] [address] [id number] [address] [place] [address], [place] [address] March, [facility] [address] [id number] [facility] [place] [address] March, [facility] [address] [id number] [facility] [place] [address] Feb, [facility] [address] [id number] [facility] [place] [address] Feb, [facility] [address] [id number] [address] [place] [address], [place] [address] Feb, [facility] [address] [id number] [address] [place] [address], [place] [address] Feb, [facility] [address] [id number] [address] [place] [address], [place] [address] Jan, [facility] [address] [id number] [address] [place] [address], [place] [address] Jan, [facility] [address] [id number] [address] [place] [address], [place] [address] Jan, [facility] [address] [id number] [address] [place] [address], [place] [address] Jan, [facility] [address] [id number] [address] [place] [address], [place] [address] Jan, [facility] [address] [id number] [address] [place] [address], [place] [address] Jan, [facility] [address] [id number] [address] [place] [address], [place] [address] Jan, [facility] [address] [id number] [address] [place] [address], [place] [address] Jan, [facility] [address] [id number] [address] [place] [address], [place] [address] Jan, [facility] [address] [id number] [address] [place] [address], [place] [address] Jan, [facility] [address] [id number] [address] [place] [address], [place] [address] Jan, [facility] [address] [id number] [address] [place] [address], [place] [address] Jan, [facility] [address] [id number] [address] [place] [address], [place] [address] Dec, [facility] [address] [id number] [address] [place] [address], [place] [address] Dec, [facility] [address] [id number] [address] [place] [address], [place] [address] Dec, [facility] [address] [id number] [address] [place] [address], [place] [address] Dec, [facility] [address] [id number] [address] [place] [address], [place] [address] Dec, [facility] [address] [id number] [address] [place] [address], [place] [address] Dec, [facility] [address] [id number] [address] [place] [address], [place] [address] Nov, [facility] [address] [id number] [address] [place] [address], [place] [address] Nov, [facility] [address] [id number] [address] [place] [address], [place] [address] Oct, [facility] [address] [id number] [address] [place] [address], [place] [address] Oct, [facility] [address] [id number] [address] [place] [address], [place] [address] Oct, [facility] [address] [id number] [address] [place] [address], [place] [address] Oct, [facility] [address] [id number] [address] [place] [address], [place] [address] Oct, [facility] [address] [id number] [address] [place] [address], [place] [address] Oct, [facility] [address] [id number] [address] [place] [address], [place] [address] Sep, [facility] [address] [id number] [address] [place] [address], [place] [address] Sep, [facility] [address] [id number] [address] [place] [address], [place] [address] Sep, [facility] [address] [id number] [address] [place] [address], [place] [address] Sep, [facility] [address] [id number] [address] [place] [address], [place] [address] Aug, [facility] [address] [id number] [address] [place] [address], [place] [address] Aug, [facility] [address] [id number] [address] [place] [address], [place] [address] Aug, [facility] [address] [id number] [address] [place] [address], [place] [address] 17 Jul, 2013 [facility] [address] [id number] [address] [place] [address], [place] [address] 14 Jul, 2013 [facility] [address] [id number] [address] [place] [address], [place] [address] 04 Jul, 2013 [facility] [address] [id number] [address] [place] [address], [place] [address] Jun, [facility] [address] [id number] [address] [place] [address], [place] [address] Jun, [facility] [address] [id number] [address] [place] [address], [place] [address] Jun, [facility] [address] [id number] [address] [place] [address], [place] [address] Apr, [facility] [address] [id number] [address] [place] [address], [place] [address] Apr, [facility] [address] [id number] [address] [place] [address], [place] [address] March, [facility] [address] [id number] [address] [place] [address], [place] [address] March, [facility] [address] [id number] [address] [place] [address], [place] [address] March, [facility] [address] [id number] [address] [place] [address], [place] [address] March, [facility] [address] [id number] [address] [place] [address], [place] [address] Feb, [facility] [address] [id number] [address] [place] [address], [place] [address] Jan, [facility] [address] [id number] [address] [place] [address], [place] [address] Dec, [facility] [address] [id number] [address] [place] [address], [place] [address] 08 Dec, 2012 [facility] [address] [id number] [address] [place] [address], [place] [address] Dec, [facility] [address] [id number] [address] [place] [address], [place] [address] Nov, [facility] [address] [id number] [address] [place] [address], [place] [address] Oct, [facility] [address] [id number] [address] [place] [address], [place] [address] Oct, [facility] [address] [id number] [address] [place] [address], [place] [address] Sep, [facility] [address] [id number] [address] [place] [address], [place] [address] Sep, [facility] [address] [id number] [address] [place] [address], [place] [address] Sep, [facility] [address] [id number] [address] [place] [address], [place] [address] Sep, [facility] [address] [id number] [address] [place] [address], [place] [address] 08 Sep, 2012 [facility] [address] [id number] [address] [place] [address], [place] [address] Sep, [facility] [address] [id number] [address] [place] [address], [place] [address] Sep, [facility] [address] [id number] [address] [place] [address], [place] [address] Aug, [facility] [address] [id number] [address] [place] [address], [place] [address] Aug, [facility] [address] [id number] [address] [place] [address], [place] [address] Aug, [facility] [address] [id number] [address] [place] [address], [place] [address] Aug, [facility] [address] [id number] [address] [place] [address], [place] [address] Aug, [facility] [address] [id number] [address] [place] [address], [place] [address] Aug, [facility] [address] [id number] [address] [place] [address], [place] [address] Aug, [facility] [address] [id number] [address] [place] [address], [place] [address] Aug, [facility] [address] [id number] [address] [place] [address], [place] [address] Jul, [facility] [address] [id number] [address] [place] [address], [place] [address] Jul, [facility] [address] [id number] [address] [place] [address], [place] [address] Jun, [facility] [address] [id number] [address] [place] [address], [place] [address] May, [facility] [address] [id number] [address] [place] [address], [place] [address] Apr, [facility] [address] [id number] [address] [place] [address], [place] [address] Apr, [facility] [address] [id number] [address] [place] [address], [place] [address] Apr, [facility] [address] [id number] [address] [place] [address], [place] [address] March, [facility] [address] [id number] [address] [place] [address], [place] [address] March, [facility] [address] [id number] [address] [place] [address], [place] [address] March, [facility] [address] [id number] [address] [place] [address], [place] [address] March, [facility] [address] [id number] [address] [place] [address], [place] [address] March, [facility] [address] [id number] [address] [place] [address], [place] [address] March, [facility] [address] [id number] [address] [place] [address], [place] [address] March, [facility] [address] [id number] [address] [place] [address], [place] [address] Jan, [facility] [address] [id number] [address] [place] [address], [place] [address] Jan, [facility] [address] [id number] [address] [place] [address], [place] [address] Jan, [facility] [address] [id number] [address] [place] [address], [place] [address] Jan, [facility] [address] [id number] [address] [place] [address], [place] [address] Jan, [facility] [address] [id number] [address] [place] [address], [place] [address] Dec, [facility] [address] [id number] [address] [place] [address], [place] [address] 06 Dec, 2011 [facility] [address] [id number] [address] [place] [address], [place] [address] 18 Nov, 2011 [facility] [address] [id number] [address] [place] [address], [place] [address] 10 Nov, 2011 [facility] [address] [id number] [address] [place] [address], [place] [address] Nov, [facility] [address] [id number] [address] [place] [address], [place] [address] 05 Nov, 2011 [facility] [address] [id number] [address] [place] [address], [place] [address] Oct, [facility] [address] [id number] [address] [place] [address], [place] [address] Oct, [facility] [address] [id number] [address] [place] [address], [place] [address] 14 Sep, 2011 [facility] [address] [id number] [address] [place], [place] [address], [place] [address] Sep, [facility] [address] [id number] [address] [place] [address], [place] [address] Sep, [facility] [address] [id number] [address] [place] [address], [place] [address] May, [facility] [address] [id number] [address] [place] [address], [place] [address] Nov, [facility] [address] [id number] [address] [place] [address], [place] [id number] 29 Oct, 2010 [facility] [address] [id number] [address] [place] [address], [place] [address] 14 Oct, 2010 [facility] [address] [id number] [address] [place] [address], [place] [address] 08 Oct, 2010 [facility] [address] [id number] [address] [place] [address], [place] [id number] 15 Sep, 2010 [facility] [address] [id number] [address] [place] [id number] Sep, [facility] [address] [id number] [address] [place] [phone] Aug, [facility] [address] [id number] [address] [place] [id number] March, [facility] [address] [id number] [address] [place] [phone] Oct, [facility] [address] [id number] [address] [place] [id number] Oct, [facility] [address] [id number] [address] [place] [id number] Oct, [facility] [address] [id number] [address] [place] [id number] Oct, [facility] [address] [id number] [address] [place] [phone] Sep, [facility] [address] [id number] [address] [place] [phone] Sep, [facility] [address] [id number] [address] [place] [phone] Sep, [facility] [address] [id number] [address] [place] [phone] Aug, [facility] [address] [id number] [address] [place] [phone] Aug, [facility] [address] [id number] [address] [place] [phone] Aug, [facility] [address] [id number] [address] [place] [id number] Jan, IMMUNIZATIONS No Known Immunizations SOCIAL HISTORY Never Assessed REASON FOR VISIT [place] [place] VITAL SIGNS MEDICATIONS Unknown [...]
--- OUTSIDE RECORDS SUMMARY | 2020-06-13 16:14 | XMS REPORT ---
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 Name Role Phone Migration, Doctor Unavailable Unavailable PROBLEMS Type Condition ICD9-CM Code FMD04-HV Code Onset Dates Condition S tatus SNOMED Code Problem Hypothyroid E03.9 Active 50724739 Problem Neuropathy G62.9 Active 974988322 Problem Mixed hyperlipidemia E78.2 Active 844537425 Problem Overactive bladder N32.81 Active 2 39239116 Problem Irritable bowel syndrome with diarrhea K58.0 Active 053174262 Problem Gastroesophageal reflux disease with esophagitis K 21.0 Active 086504950 Problem Type 2 diabetes mellitus with hyperglycemia E11.65 Active 64402287 Problem detention current use of insulin Z79.4 Active 471441749 Problem Current non-adherence to medical treatment Z91.19 Active 2732171 Problem Recurrent major depressive disorder, in partial remission F33.41 Active 56396178 Problem Chronic fatigue R53.82 Active 8422 9001 Problem 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 Active 346293414 Problem Pulmonary emphysema, unspecified emphysema type J4 3.9 Active 69123592 Problem Thrombocytosis D47.3 Active 50784 09 Problem Acquired hypothyroidism E03.9 Active 508908980 Problem Essential (primary) hypertension I10 Active 51584061 Problem Chronic pain G89.29 Active 3791266 1 Problem Anxiety disorder, unspecified type F41.9 Active 459461358 Problem Major depressive disorder, recurrent episode, moderate F33.1 Active 946702320 Problem Hypertriglyceridemia E78.1 Active 657461099 Problem Gastroparesis K31.84 Active 042721 006 ALLERGIES No Information ENCOUNTERS Encounter Location Date Diagnosis [facility], [place] [address] [facility] [id number] [address] [place] [address] March, Chronic pain G89.29 [facility], [place] [address] [facility] [id number] [address] [place] [address] March, [address] [address] Feb, [facility], [place] [address] [facility] [id number] [address] [place] [address] 09 Feb, 2019 Other chronic pain G89.29 an d Chronic pain G89.29 [facility], [place] [address] [facility] [id number] [address] [place] [address] Jan, Mixed hyperlipidemia E78.2 [facility], [place] [address] [id number] [address] [place] [address] Jan, Chronic pain G89.29 [facility], [place] [address] [facility] [id number] [address] [place] [address] Jan, Type 2 diabetes mellitus wit h hyperglycemia E11.65 ; Mixed hyperlipidemia E78.2 ; detention current use of insulin Z79.4 ; Acquired hypothyroidism E03.9 and Essential (primary) hypertension I10 [facility], [place] [address] [facility] [id number] [address] [place] [address] Dec, Chronic pain G89.29 [facility], [place] [address] [facility] [id number] [address] [place] [address] Nov, Chronic pain G89.29 [facility], [place] [address] [facility] [id number] [address] [place] [address] Nov, [facility], [place] [address] [facility] [id number] [address] [place] [address] Oct, Chronic pain G89.29 [facility], [place] [address] [facility] [id number] [address] [place] [address] Oct, [facility], [place] [address] [facility] [id number] [address] [place] [address] Sep, [facility], [place] [address] [facility] [id number] [address] [place] [address] Sep, Type 2 diabetes mellitus wit h hyperglycemia E11.65 [facility], [place] [address] [facility] [id number] [address] [place] [address] Sep, Chronic pain G89.29 [place] [id number] [place] [address] Sep, [place] [address] [place] [id number] [address] [place] [address] Sep, Type 2 diabetes mellitus wit h hyperglycemia E11.65 ; Irritable bowel syndrome with diarrhea K58.0 ; Gastroparesis K31.84 ; 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 and Dermatitis L30.9 [place] [address] [facility] [id number] [address] [place] [address] Aug, Chronic pain G89.29 [place] [address] [place] [id number] [address] [place] [address] Jul, Chronic pain G89.29 [place] [id number] [place] [address] Jun, Type 2 diabetes mellitus wit h hyperglycemia E11.65 ; Neuropathy G62.9 ; Recurrent major depressive disorder, in partial remission F33.41 ; Chronic pain G89.29 and Hypertriglyceridemia E78.1 [place] [address] [address] Jun, Hypothyroid E03.9 [place] [address] [address] Jun, Major depressive disorder, r ecurrent episode, moderate F33.1 and Anxiety disorder, unspecified type F41.9 [place] [address] [place] [id number] [address] [place] [address] Jun, [place] [address] [address] Jun, Type 2 diabetes mellitus wit h hyperglycemia E11.65 ; 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 ; Recurrent major depressive disorder, in partial remission F33.41 ; Hypothyroid E03.9 ; Candidal dermatitis B37.2 and Weakness generalized R53.1 [place] [address] [place] [id number] [place] [address] May, [facility], [place] [address] [id number] [address] [place] [address] May, [facility], [place] [address] [id number] [address] [place] [address] May, [facility], [place] [address] [id number] [address] [place] [address] May, Generalized abdominal pain R 10.84 and Candidal dermatitis B37.2 [facility], [place] [address] [id number] [address] [place] [address] May, [facility], [place] [address] [facility] [id number] [address] [place] [address] May, [place] [address] [facility] [id number] [address] [place] [address] May, Nodular radiologic density R 93.8 ; Weight loss, unintentional R63.4 and Pulmonary emphysema, unspecified emphysema type J43.9 [facility], [place] [address] [facility] [id number] [address] [place] [address] May, Chronic pain G89.29 [place] [address] [facility] [id number] [address] [place] [address] May, Syncope and collapse R55 ; C hronic fatigue R53.[address] lung screening R91.8 [place] [address] [facility] [id number] [address] [place] [address] May, [facility], [place] [address] [facility] [id number] [address] [place] [address] Apr, Chronic fatigue R53.82 ; Abn ormal chest CT R93.8 ; Elevated erythrocyte sedimentation rate R70.0 ; Hypothyroid E03.9 and Recurrent major depressive disorder, in partial remission F33.41 [facility], [place] [address] [facility] [id number] [address] [place] [address] Apr, Hypothyroid E03.9 [place] [address] [facility] [id number] [address] [place] [address] Apr, Depression F32.9 [facility], [place] [address] [facility] [id number] [address] [place] [address] Apr, [facility], [place] [address] [facility] [id number] [address] [place] [address] March, [place] [address] [facility] [id number] [address] [place] [address] March, Hypothyroid E03.9 [place] [address] [facility] [id number] [address] [place] [address] March, Diabetes mellitus E11.9 and Hypothyroid E03.9 [place] [address] [place] [id number] [address] [place] [address] March, Diabetes mellitus E11.9 [place] [address] [facility] [id number] [address] [place] [address] March, Hypothyroid E03.9 and Elevat ed liver enzymes R74.8 [place] [address] [facility] [id number] [address] [place] [address] March, Type 2 diabetes mellitus wit h [...] major depressive disorder, in partial remission F33.41 [place] [address] [facility] [id number] [address] [place] [address] Feb, Chronic pain G89.29 [place] [address] [facility] [id number] [address] [place] [address] Feb, Type 2 diabetes mellitus wit h hyperglycemia E11.65 and Skin lesion of scalp L98.9 [place] [address] [place] [id number] [address] [place] [address] Feb, [place] [address] [place] [address] Jan, Type 2 diabetes mellitus wit h [...] and Irritable bowel syndrome with diarrhea K58.0 [place] [address] [place] [id number] [address] [place] [address] Jan, [place] [address] [place] [id number] [address] [place] [address] Jan, Controlled substance agreeme nt signed Z79.899 [place] [address] [place] [address] Dec, Type 2 diabetes mellitus wit h hyperglycemia E11.65 ; Controlled substance agreement signed Z79.899 ; detention current use of insulin Z79.4 ; Essential (primary) hypertension I10 ; Hypothyroid E03.9 ; Neuropathy G62.9 ; Depression F32.9 ; Mixed hyperlipidemia E78.2 ; Irritable bowel syndrome with diarrhea K58.0 ; Gastroesophageal reflux disease with esophagitis K21.0 ; Thrombocytosis D47.3 ; Current non-adherence to medical treatment Z91.19 and Overweight (BMI 25.0-29.9) E66.3 [place] [address] [place] [id number] [address] [place] [address] Dec, Controlled substance agreeme nt signed Z79.899 [place] [address] [place] [id number] [address] [place] [address] Nov, Type 2 diabetes mellitus wit h hyperglycemia E11.65 and Current non- adherence to medical treatment Z91.19 [place] [address] [place] [address] [place] [address] Nov, [facility], [place] [address] [id number] [address] [place] [address] Nov, Chronic pain G89.29 [facility], [place] [address] [id number] [address] [place] [address] Nov, [facility], [place] [address] [id number] [address] [place] [address] Nov, Hypothyroid E03.9 [facility], [place] [address] [id number] [address] [place] [address] Nov, Hypothyroid E03.9 [facility], [place] [address] [facility] [id number] [address] [place] [address] Nov, Pulmonary emphysema, unspeci fied emphysema type J43.9 and Irritable bowel syndrome with diarrhea K58.0 [facility], [place] [address] [facility] [id number] [address] [place] [address] Oct, [facility], [place] [address] [facility] [id number] [address] [place] [address] Oct, [facility], [place] [address] [facility] [id number] [address] [place] [address] Oct, [facility], [place] [address] [facility] [id number] [address] [place] [address] Oct, [facility], [place] [address] [facility] [id number] [address] [place] [address] Oct, Chronic pain G89.29 [facility], [place] [address] [facility] [id number] [address] [place] [address] Oct, Diabetes mellitus E11.9 ; De pression F32.9 ; Mixed hyperlipidemia E78.2 ; Hypotension, unspecified hypotension type I95.9 ; Pulmonary emphysema, unspecified emphysema type J43.9 and Weight loss, unintentional R63.4 [facility], [place] [address] [facility] [id number] [address] [place] [address] Oct, Chronic pain G89.29 [facility], [place] [address] [place] [id number] [address] [place] [address] Sep, Chronic pain G89.29 [facility], [place] [address] [place] [id number] [address] [place] [address] Sep, Hypothyroid E03.9 and Diabet es mellitus E11.9 [facility], [place] [address] [address] Aug, Type 2 diabetes mellitus wit h hyperglycemia E11.65 ; detention current use of insulin Z79.4 ; Essential (primary) hypertension I10 ; Hypothyroid E03.9 ; Neuropathy G62.9 ; Chronic pain G89.29 ; Mixed hy perlipidemia E78.2 and Encounter for immunization Z23 [facility], [place] [address] [address] Aug, Chronic pain G89.29 [facility], [place] [address] [address] Aug, Overactive bladder N32.81 ; Diabetes mellitus E11.9 and Chronic pain G89.29 [facility], [place] [address] [place] [id number] [address] [place] [address] Jul, [facility], [place] [address] [address] Jun, [facility], [place] [address] [place] [id number] [address] [place] [address] Jun, [facility], [place] [address] [place] [id number] [address] [place] [address] Jun, Hypothyroid E03.9 [facility], [place] [address] [place] [id number] [address] [place] [address] Jun, Diabetes mellitus E11.9 ; Hy pothyroid E03.9 ; Neuropathy G62.9 ; Chronic pain G89.29 and Neck mass R22.1 [facility], [place] [address] [place] [id number] [address] [place] [address] Apr, [facility], [place] [address] [facility] [id number] [address] [place] [address] Apr, Acute cystitis without hemat uria N30.00 [facility], [place] [address] [facility] [id number] [address] [place] [address] March, [facility], [place] [address] [facility] [id number] [address] [place] [address] March, [facility], [place] [address] [facility] [id number] [address] [place] [address] March, Near syncope R55 [facility], [place] [address] [facility] [id number] [address] [place] [address] Feb, [facility], [place] [address] [place] [id number] [address] [place] [address] Feb, Chronic pain G89.29 [facility], [place] [address] [facility] [id number] [address] [place] [address] Feb, [facility], [place] [address] [facility] [id number] [address] [place] [address] Feb, [facility], [place] [address] [facility] [id number] [address] [place] [address] Jan, Chronic pain G89.29 [facility], [place] [address] [facility] [id number] [address] [place] [address] Jan, [facility], [place] [address] [place] [id number] [address] [place] [address] Jan, [facility], [place] [address] [facility] [id number] [address] [place] [address] Jan, Diabetes mellitus E11.9 ; Hy pothyroid E03.9 ; GERD (gastroesophageal reflux disease) K21.9 ; Insomnia G47.00 ; Functional 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 ; Neuropathy G62.9 ; Depression F32.9 ; Chronic pain G89.29 ; Irritable bowel syndrome with diarrhea K58.0 ; Overactive bladder N32.81 ; Mixed hyperlipidemia E78.2 and Bronchitis J40 [facility], [place] [address] [facility] [id number] [address] [place] [address] Dec, [facility], [place] [address] [facility] [id number] [address] [place] [address] Dec, [facility], [place] [address] [place] [id number] [place] [address] Dec, [facility], [place] [address] [place] [id number] [place] [address] Dec, [facility], [place] [address] [place] [id number] [place] [address] Dec, Chronic pain G89.29 [facility], [place] [address] [place] [id number] [place] [address] Dec, [facility], [place] [address] [address] Dec, [facility], [place] [address] [address] Dec, Type 2 diabetes mellitus wit h foot ulcer E11.621 [place] [address] [address] 17 Dec, 2016 Type 2 diabetes mellitus wit h foot ulcer E11.621 [facility], [place] [address] [address] 14 Dec, 2016 HTN (hypertension) I10 ; Dep ression F32.9 ; Type 2 diabetes mellitus with foot ulcer E11.621 ; Functional 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 ; Irritable bowel syndrome with diarrhea K58.0 ; Chronic pain G89.29 ; Insomnia G47.00 ; Overactive bladder N32.81 ; Mixed hyperlipidemia E78.2 ; Gastroesophageal reflux disease with esophagitis K21.0 and Acquired hypothyroidism E03.9 [facility], [place] [address] [place] [id number] [address] [place] [address] Nov, [place] [address] [address] Oct, [place] [address] [address] Oct, [place] [address] [address] Oct, [place] [address] [address] Sep, Functional 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 ; HTN (hypertension) I10 ; Diabetes mellitus E11.9 ; Depression F32.9 ; Overactive bladder N32.81 ; Mixed hyperlipidemia E78.2 ; Gastroesophageal reflux disease without esophagitis K21.9 ; Chronic pain G89.29 ; Insomnia G47.00 and Acquired hypothyroidism E03.[address] [address] Sep, [address] [address] Aug, Encounter for immunization Z [address] [address] Aug, [place] [address] [address] 09 Jul, 2016 [place] [address] [address] Jun, Type 2 diabetes mellitus wit hout complications E11.9 ; HTN (hypertension) I10 ; Hypothyroid E03.9 ; Neuropathy G62.9 ; Depression F32.9 ; Chronic pain G89.29 ; GERD (gastroesophageal reflux disease) K21.9 ; Insomnia G47.00 ; Overactive bladder N32.81 ; Mixed hyperlipidemia E78.2 ; Diarrhea of infectious origin A09 and Environmental allergies Z91.09 [place] [address] [address] Apr, [address] [address] March, Hypothyroidism, unspecified E03.9 and Mixed hyperlipidemia E78.2 [place] [address] [address] March, Diabetes mellitus E11.9 ; HT N (hypertension) I10 ; Hypothyroid E03.9 ; Depression F32.9 ; Overactive bladder N32.81 ; Other chronic pain G89.29 ; Lumbago with sciatica, unspecified side M54.40 ; Environmental allergies Z91.09 and Gastroesophageal reflux disease, esophagitis presence not specified K21.9 [place] [address] [address] March, [place] [address] [address] Jan, HTN (hypertension) I10 ; Hyp othyroid E03.9 ; Neuropathy G62.9 ; Diabetes mellitus E11.9 ; Chronic pain G89.29 ; GERD (gastroesophageal reflux disease) K21.9 ; Overactive bladder N32.81 and Depression F32.9 [place] [address] [address] Dec, Ear pain, left H92.02 ; HTN (hypertension) I10 ; Hypothyroid E03.9 ; Neuropathy G62.9 ; Diabetes mellitus E11.9 ; Depression F32.9 ; GERD (gastroesophageal reflux disease) K21.9 ; Insomnia G47.00 and Overactive bladder N32.81 [place] [address] [place] [id number] [address] [place] [address] Nov, Overactive bladder N32.81 an d Chronic pain G89.29 [place] [address] [address] Nov, Kidney failure N19 [place] [address] [address] Nov, [place] [address] [address] Nov, [place] [address] [address] Nov, Diabetes mellitus E11.9 ; De pression F32.9 ; Chronic pain G89.29 ; GERD (gastroesophageal reflux disease) K21.9 ; Insomnia G47.00 ; HTN (hypertension) I10 ; Hypothyroid E03.9 ; COPD (chronic obstructive pulmonary disease) J44.9 ; Bladder incontinence R32 and Incontinence R32 [address] [address] Sep, Type 2 diabetes mellitus wit h foot ulcer E11.621 and Chromosomal abnormality, 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 [address] Sep, [address] [address] Aug, [address] [address] Aug, [address] [address] Aug, HTN (hypertension) I10 ; Enc ounter for immunization Z23 ; Hypothyroid E03.9 ; Neuropathy G62.9 ; Diabetes mellitus E11.9 ; Depression F32.9 ; Chronic pain G89.29 ; GERD (gastroesophageal reflux disease) K21.9 ; Insomnia G47.00 and COPD (chronic obstructive pulmonary disease) J44.9 [place] [address] [address] Jun, [address] [address] Jun, [address] [address] May, Essential hypertension, ivis gn 401.1 ; Unspecified hypothyroidism 244.9 ; Insomnia, unspecified 780.52 ; Shortness of breath 786.05 ; Depression 311 ; COPD (chronic obstructive pulmonary disease) 496 ; GERD (gastroesophageal reflux disease) 530.81 and Diabetes 1.5, 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 [facility] [place] [address] [address] May, [facility], [place] [address] [address] May, [facility], [place] [address] [address] May, Shortness of breath 786.05 ; Essential hypertension, benign 401.1 ; Diabetes mellitus 250.00 ; Hyperlipidemia 272.4 ; Hypothyroid 244.9 ; Insomnia 780.52 and Cough 786.2 [facility], [place] [address] [address] Apr, [facility], [place] [address] [address] March, Shortness of breath 786.05 ; Nausea with vomiting 787.01 ; Essential hypertension, benign 401.1 ; Diabetes mellitus 250.00 ; Hyperlipidemia 272.4 and Hypothyroid 244.9 [facility], [place] [address] [address] Feb, [facility], [place] [address] [address] Feb, [facility], [place] [address] [place] [id number] [place] [address] Jan, [facility], [place] [address] [place] [id number] [place] [address] Jan, [facility], [place] [address] [address] Jan, [facility], [place] [address] [place] [id number] [address] [place] [address] Jan, [facility] [place] [address] [id number] [address] [place] [address] Jan, [facility] [address] [id number] [address] [place] [address], [place] [address] Jan, 2014 [facility] [address] [id number] [address] [place] [address], [place] [address] Jan, 2014 [facility] [address] [id number] [address] [place] [address], [place] [address] Jan, 2014 [facility] [address] [id number] [address] [place] [address], [place] [address] Jan, 2014 [facility] [address] [id number] [address] [place] [address], [place] [address] Jan, [facility] [address] [id number] [address] [place] [address], [place] [address] Dec, 2014 [facility] [address] [id number] [address] [place] [address], [place] [address] Dec, 2014 [facility] [address] [id number] [address] [place] [address], [place] [address] Dec, 2014 [facility] [address] [id number] [address] [place] [address], [place] [address] Dec, 2014 [facility] [address] [id number] [address] [place] [address], [place] [address] Dec, 2014 [facility] [address] [id number] [address] [place] [address], [place] [address] Dec, 2014 [facility] [address] [id number] [address] [place] [address], [place] [address] Dec, 2014 [facility] [address] [id number] [address] [place] [address], [place] [address] Dec, 2014 [facility] [address] [id number] [address] [place] [address], [place] [address] Dec, 2014 [facility] [address] [id number] [address] [place] [address], [place] [address] Dec, 2014 [facility] [address] [id number] [address] [place] [address], [place] [address] Oct, [facility] [address] [id number] [address] [place] [address], [place] [address] Oct, [facility] [address] [id number] [address] [place] [address], [place] [address] Oct, [facility] [address] [id number] [address] [place] [address], [place] [address] Oct, [facility] [address] [id number] [address] [place] [address], [place] [address] Oct, [facility] [address] [id number] [address] [place] [address], [place] [address] Oct, [facility] [address] [id number] [address] [place] [address], [place] [address] Oct, [facility] [address] [id number] [address] [place] [address], [place] [address] Oct, [facility] [address] [id number] [address] [place] [address], [place] [address] Oct, [facility] [address] [id number] [address] [place] [address], [place] [address] Oct, [facility] [address] [id number] [address] [place] [address], [place] [address] Oct, [facility] [address] [id number] [address] [place] [address], [place] [address] Oct, [facility] [address] [id number] [address] [place] [address], [place] [address] Oct, [facility] [address] [id number] [address] [place] [address], [place] [address] Oct, [facility] [address] [id number] [address] [place] [address], [place] [address] Sep, [facility] [address] [id number] [address] [place] [address], [place] [address] Sep, [facility] [address] [id number] [address] [place] [address], [place] [address] Sep, [facility] [address] [id number] [address] [place] [address], [place] [address] Sep, [facility] [address] [id number] [address] [place] [address], [place] [address] Sep, [facility] [address] [id number] [address] [place] [address], [place] [address] Sep, [facility] [address] [id number] [address] [place] [address], [place] [address] Sep, [facility] [address] [id number] [address] [place] [address], [place] [address] Sep, [facility] [address] [id number] [address] [place] [address], [place] [address] Sep, [facility] [address] [id number] [address] [place] [address], [place] [address] Aug, [facility] [address] [id number] [address] [place] [address], [place] [address] Aug, [facility] [address] [id number] [address] [place] [address], [place] [address] Aug, [facility] [address] [id number] [address] [place] [address], [place] [address] Aug, [facility] [address] [id number] [address] [place] [address], [place] [address] 16 Aug, 2014 [facility] [address] [id number] [address] [place] [address], [place] [address] Aug, [facility] [address] [id number] [address] [place] [address], [place] [address] Aug, [facility] [address] [id number] [address] [place] [address], [place] [address] Aug, [facility] [address] [id number] [address] [place] [address] Aug, [facility] [address] [id number] [facility] [place] [address] Jul, [facility] [address] [id number] [address] [place] [address], [place] [address] Jul, [facility] [address] [id number] [address] [place] [address], [place] [address] Jul, [facility] [address] [id number] [address] [place] [address], [place] [address] Jul, [facility] [address] [id number] [address] [place] [address], [place] [address] Jul, [facility] [address] [id number] [address] [place] [address], [place] [address] Jul, [facility] [address] [id number] [address] [place] [address], [place] [address] Jul, [facility] [address] [id number] [address] [place] [address], [place] [address] Jul, [facility] [address] [id number] [address] [place] [address], [place] [address] Jul, [facility] [address] [id number] [address] [place] [address], [place] [address] Jul, [facility] [address] [id number] [address] [place] [address], [place] [address] Jun, [facility] [address] [id number] [address] [place] [address], [place] [address] Jun, [facility] [address] [id number] [address] [place] [address], [place] [address] Jun, [facility] [address] [id number] [address] [place] [address], [place] [address] Jun, [facility] [address] [id number] [address] [place] [address], [place] [address] Jun, [facility] [address] [id number] [facility] [place] [place] [address] Jun, [facility] [address] [id number] [facility] [place] [place] [address] Jun, [facility] [address] [id number] [facility] [place] [place] [address] Jun, [facility] [address] [id number] [facility] [place] [place] [address] Jun, [facility] [address] [id number] [facility] [place] [place] [address] Jun, [facility] [address] [id number] [address] [place] [address], [place] [address] Jun, [facility] [address] [id number] [address] [place] [address], [place] [address] Jun, [facility] [address] [id number] [address] [place] [address], [place] [address] May, [facility] [address] [id number] [address] [place] [address], [place] [address] May, [facility] [address] [id number] [address] [place] [address], [place] [address] May, [facility] [address] [id number] [address] [place] [address], [place] [address] May, [facility] [address] [id number] [address] [place] [address], [place] [address] May, [facility] [address] [id number] [address] [place] [address], [place] [address] May, [facility] [address] [id number] [address] [place] [address], [place] [address] March, [facility] [address] [id number] [address] [place] [address], [place] [address] March, [facility] [address] [id number] [address] [place] [address], [place] [address] March, [facility] [address] [id number] [facility] [place] [address] March, [facility] [address] [id number] [address] [place] [address], [place] [address] March, [facility] [address] [id number] [address] [place] [address], [place] [address] March, [facility] [address] [id number] [address] [place] [address], [place] [address] Feb, [facility] [address] [id number] [address] [place] [address], [place] [address] Feb, [facility] [address] [id number] [address] [place] [address], [place] [address] Feb, [facility] [address] [id number] [address] [place] [address], [place] [address] Feb, [facility] [address] [id number] [address] [place] [address], [place] [address] Jan, [facility] [address] [id number] [address] [place] [address], [place] [address] Jan, [facility] [address] [id number] [address] [place] [address], [place] [address] Jan, [facility] [address] [id number] [address] [place] [address], [place] [address] Jan, [facility] [address] [id number] [address] [place] [address], [place] [address] Jan, [facility] [address] [id number] [address] [place] [address], [place] [address] Jan, [facility] [address] [id number] [address] [place] [address], [place] [address] Jan, [facility] [address] [id number] [address] [place] [address], [place] [address] Jan, [facility] [address] [id number] [address] [place] [address], [place] [address] Jan, [facility] [address] [id number] [address] [place] [address], [place] [address] Jan, [facility] [address] [id number] [address] [place] [address], [place] [address] Jan, [facility] [address] [id number] [address] [place] [address], [place] [address] Jan, [facility] [address] [id number] [address] [place] [address], [place] [address] Dec, [facility] [address] [id number] [address] [place] [address], [place] [address] Dec, [facility] [address] [id number] [address] [place] [address], [place] [address] Dec, [facility] [address] [id number] [address] [place] [address], [place] [address] Dec, [facility] [address] [id number] [address] [place] [address], [place] [address] Dec, [facility] [address] [id number] [address] [place] [address], [place] [address] Dec, [facility] [address] [id number] [address] [place] [address], [place] [address] Nov, [facility] [address] [id number] [address] [place] [address], [place] [address] Nov, [facility] [address] [id number] [address] [place] [address], [place] [address] Oct, [facility] [address] [id number] [address] [place] [address], [place] [address] Oct, [facility] [address] [id number] [address] [place] [address], [place] [address] Oct, [facility] [address] [id number] [address] [place] [address], [place] [address] Oct, [facility] [address] [id number] [address] [place] [address], [place] [address] Oct, [facility] [address] [id number] [address] [place] [address], [place] [address] Oct, [facility] [address] [id number] [address] [place] [address], [place] [address] Sep, [facility] [address] [id number] [address] [place] [address], [place] [address] Sep, [facility] [address] [id number] [address] [place] [address], [place] [address] Sep, [facility] [address] [id number] [address] [place] [address], [place] [address] Sep, [facility] [address] [id number] [address] [place] [address], [place] [address] Aug, [facility] [address] [id number] [address] [place] [address], [place] [address] Aug, [facility] [address] [id number] [address] [place] [address], [place] [address] Aug, [facility] [address] [id number] [address] [place] [address] Jul, [facility] [address] [id number] [address] [place] [address] 14 Jul, 2013 [facility] [address] [id number] [address] [place] [address] Jul, [facility] [address] [id number] [address] [place] [address], [place] [address] Jun, [facility] [address] [id number] [address] [place] [address], [place] [address] Jun, [facility] [address] [id number] [address] [place] [address] Jun, [facility] [address] [id number] [address] [place] [address] Apr, [facility] [address] [id number] [address] [place] [address], [place] [address] Apr, [facility] [address] [id number] [address] [place] [address], [place] [address] March, [facility] [address] [id number] [address] [place] [address], [place] [address] March, [facility] [address] [id number] [address] [place] [address], [place] [address] March, [facility] [address] [id number] [address] [place] [address], [place] [address] March, [facility] [address] [id number] [address] [place] [address], [place] [address] Feb, [facility] [address] [id number] [address] [place] [address], [place] [address] Jan, [facility] [address] [id number] [address] [place] [address], [place] [address] Dec, [facility] [address] [id number] [address] [place] [address], [place] [address] Dec, [facility] [address] [id number] [address] [place] [address], [place] [address] Dec, [facility] [address] [id number] [address] [place] [address], [place] [address] Nov, [facility] [address] [id number] [address] [place] [address], [place] [address] Oct, [facility] [address] [id number] [address] [place] [address], [place] [address] Oct, [facility] [address] [id number] [address] [place] [address], [place] [address] Sep, [facility] [address] [id number] [address] [place] [address], [place] [address] Sep, [facility] [address] [id number] [address] [place] [address], [place] [address] Sep, [facility] [address] [id number] [address] [place] [address], [place] [address] Sep, [facility] [address] [id number] [address] [place] [address], [place] [address] Sep, [facility] [address] [id number] [address] [place] [address], [place] [address] Sep, [facility] [address] [id number] [address] [place] [address], [place] [address] Sep, [facility] [address] [id number] [address] [place] [address], [place] [address] Aug, [facility] [address] [id number] [address] [place] [address], [place] [address] Aug, [facility] [address] [id number] [address] [place] [address], [place] [address] Aug, [facility] [address] [id number] [address] [place] [address], [place] [address] Aug, [facility] [address] [id number] [address] [place] [address], [place] [address] Aug, [facility] [address] [id number] [address] [place] [address], [place] [address] Aug, [facility] [address] [id number] [address] [place] [address], [place] [address] Aug, [facility] [address] [id number] [address] [place] [address], [place] [address] Aug, [facility] [address] [id number] [address] [place] [address], [place] [address] Jul, [facility] [address] [id number] [address] [place] [address], [place] [address] 12 Jul, 2012 [facility] [address] [id number] [address] [place] [address], [place] [address] Jun, [facility] [address] [id number] [address] [place] [address], [place] [address] May, [facility] [address] [id number] [address] [place] [address], [place] [address] Apr, [facility] [address] [id number] [address] [place] [address], [place] [address] Apr, [facility] [address] [id number] [address] [place] [address], [place] [address] Apr, [facility] [address] [id number] [address] [place] [address], [place] [address] March, [facility] [address] [id number] [address] [place] [address], [place] [address] March, [facility] [address] [id number] [address] [place] [address], [place] [address] March, [facility] [address] [id number] [address] [place] [address], [place] [address] March, [facility] [address] [id number] [address] [place] [address], [place] [address] March, [facility] [address] [id number] [address] [place] [address], [place] [address] March, [facility] [address] [id number] [address] [place] [address], [place] [address] March, [facility] [address] [id number] [address] [place] [address], [place] [address] Jan, [facility] [address] [id number] [address] [place] [address], [place] [address] Jan, [facility] [address] [id number] [address] [place] [address], [place] [address] Jan, [facility] [address] [id number] [address] [place] [address], [place] [address] Jan, [facility] [address] [id number] [address] [place] [address], [place] [address] Jan, [facility] [address] [id number] [address] [place] [address], [place] [address] Dec, [facility] [address] [id number] [address] [place] [address], [place] [address] Dec, [facility] [address] [id number] [address] [place] [address], [place] [address] Nov, [facility] [address] [id number] [address] [place] [address], [place] [address] Nov, [facility] [address] [id number] [address] [place] [address], [place] [address] Nov, [facility] [address] [id number] [address] [place] [address], [place] [address] Nov, [facility] [address] [id number] [address] [place] [address], [place] [address] Oct, [facility] [address] [id number] [address] [place] [address], [place] [address] Oct, [facility] [address] [id number] [address] [place] [address], [place] [address] 14 Sep, 2011 [facility] [address] [id number] [address] [place] [address], [place] [address] Sep, [facility] [address] [id number] [address] [place] [address], [place] [address] 10 Sep, 2011 [facility] [address] [id number] [address] [place] [address], [place] [address] May, [facility] [address] [id number] [address] [place] [address], [place] [address] 20 Nov, 2010 [facility] [address] [id number] [address] [place] [address], [place] [address] 29 Oct, 2010 [facility] [address] [id number] [address] [place] [address], [place] [address] 14 Oct, 2010 [facility] [address] [id number] [address] [place] [address], [place] [address] 08 Oct, 2010 [facility] [address] [id number] [address] [place] [address], [place] [address] 15 Sep, 2010 [facility] [address] [id number] [address] [place] [address], [place] [address] 02 Sep, 2010 [facility] [address] [id number] [address] [place] [address], [place] [address] Aug, [facility] [address] [id number] [address] [place] [address], [place] [address] March, [facility] [address] [id number] [address] [place] [address], [place] [address] 17 Oct, 2009 [facility] [address] [id number] [address] [place] [address], [place] [address] 17 Oct, 2009 [facility] [address] [id number] [address] [place] [address] Oct, [facility] [address] [id number] [address] [place] [address], [place] [address] Oct, [facility] [address] [id number] [address] [place] [address] Sep, [facility] [address] [id number] [address] [place] [address] Sep, [facility] [address] [id number] [address] [place] [address] Sep, [facility] [address] [id number] [address] [place] [address] Aug, [facility] [address] [id number] [address] [place] [address] 24 Aug, 2009 [facility] [address] [id number] [address] [place] [address] [id number] Aug, [facility] [address] [id number] [address] [place] [id number] 10 Jan, 2009 IMMUNIZATIONS No Known Immunizations SOCIAL HISTORY Never Assessed [place]ASON FOR VISIT [place] [place] VITAL SIGNS MEDICATIONS Unknown [...]
--- OUTSIDE RECORDS SUMMARY | 2020-06-13 16:15 | XMS REPORT ---
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 Name Role Phone Migration, Doctor Unavailable Unavailable PROBLEMS Type Condition ICD9-CM Code BOM90-WU Code Onset Dates Condition S tatus SNOMED Code Problem Hypothyroid E03.9 Active 97402563 Problem Neuropathy G62.9 Active 830082060 Problem Mixed hyperlipidemia E78.2 Active 142779056 Problem Overactive bladder N32.81 Active 2 05286641 Problem Irritable bowel syndrome with diarrhea K58.0 Active 653505442 Problem Gastroesophageal reflux disease with esophagitis K 21.0 Active 415879174 Problem Type 2 diabetes mellitus with hyperglycemia E11.65 Active 64661215 Problem halfway current use of insulin Z79.4 Active 167029479 Problem Current non-adherence to medical treatment Z91.19 Active 5111039 Problem Recurrent major depressive disorder, in partial remission F33.41 Active 87408053 Problem Chronic fatigue R53.82 Active 8422 9001 Problem 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 Active 968988051 Problem Pulmonary emphysema, unspecified emphysema type J4 3.9 Active 09518911 Problem Thrombocytosis D47.3 Active 11943 09 Problem Acquired hypothyroidism E03.9 Active 842819968 Problem Essential (primary) hypertension I10 Active 52769359 Problem Chronic pain G89.29 Active 6980826 1 Problem Anxiety disorder, unspecified type F41.9 Active 990038767 Problem Major depressive disorder, recurrent episode, moderate F33.1 Active 472112873 Problem Hypertriglyceridemia E78.1 Active 227648963 Problem Gastroparesis K31.84 Active 877049 006 ALLERGIES No Information ENCOUNTERS Encounter Location Date Diagnosis [address] [address] Feb, [facility] [address] [facility] [id number] [address], [place] [address] Feb, Other chronic pain G89.29 an d Chronic pain G89.29 [facility] [address] [facility] [id number] [address] [place] [address] 18 Jan, 2019 Mixed hyperlipidemia E78.2 [facility] [address] [facility] [id number] [address] [place] [address] 11 Jan, 2019 Chronic pain G89.29 [facility] [address] [facility] [id number] [address] [place] [address] 08 Jan, 2019 Type 2 diabetes mellitus wit h hyperglycemia E11.65 ; Mixed hyperlipidemia E78.2 ; halfway current use of insulin Z79.4 ; Acquired hypothyroidism E03.9 and Essential (primary) hypertension I10 [facility] [address] [facility] [id number] [address] [place] [address] Dec, Chronic pain G89.29 [facility] [address] [facility] [id number] [address] [place] [id number] 14 Nov, 2018 Chronic pain G89.29 [facility] [address] [facility] [id number] [address] [place] [address] Nov, [facility] [address] [facility] [id number] [address] [place] [address] Oct, Chronic pain G89.29 [facility] [address] [place] [id number] [address] [place] [phone] Oct, [facility] [address] [facility] [id number] [address] [place] [address] Sep, [facility] [address] [facility] [id number] [address] [place] [address] Sep, Type 2 diabetes mellitus wit h hyperglycemia E11.65 [facility] [address] [facility] [id number] [address] [place] [address] 16 Sep, 2018 Chronic pain G89.29 [facility] [address] [facility] [id number] [address] [place] [address] Sep, [facility] [address] [place] [id number] [address] [place] [address] Sep, Type 2 diabetes mellitus wit h hyperglycemia E11.65 ; Irritable bowel syndrome with diarrhea K58.0 ; Gastroparesis K31.84 ; 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 and Dermatitis L30.9 [place] [address] [facility] [id number] [address] [place] [address] Aug, Chronic pain G89.29 [place] [address] [facility] [id number] [address] [place] [address] Jul, Chronic pain G89.29 [place] [address] [place] [id number] [address] [place] [address] Jun, Type 2 diabetes mellitus wit h hyperglycemia E11.65 ; Neuropathy G62.9 ; Recurrent major depressive disorder, in partial remission F33.41 ; Chronic pain G89.29 and Hypertriglyceridemia E78.1 [place] [address] [place] [id number] [address] [place] [address] Jun, Hypothyroid E03.9 [place] [address] [place] [id number] [address] [place] [phone] Jun, Major depressive disorder, r ecurrent episode, moderate F33.1 and Anxiety disorder, unspecified type F41.9 [place] [address] [place] [id number] [address] [place] [id number] Jun, [place] [address] [place] [address] Jun, Type 2 diabetes mellitus wit h hyperglycemia E11.65 ; 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.4 ; Recurrent major depressive disorder, in partial remission F33.41 ; Hypothyroid E03.9 ; Candidal dermatitis B37.2 and Weakness generalized R53.1 [place] [address] [place] [id number] [address] [place] [address] May, [place] [address] [place] [id number] [address] [place] [address] May, [place] [address] [place] [id number] [address] [place] [address] May, [facility] [address] [facility] [id number] [address] [place] [phone] May, Generalized abdominal pain R 10.84 and Candidal dermatitis B37.2 [place] [address] [facility] [id number] [address] [place] [phone] May, [place] [address] [place] [id number] [place] [address] May, [place] [address] [facility] [id number] [place] [address] May, Nodular radiologic density R 93.8 ; Weight loss, unintentional R63.4 and Pulmonary emphysema, unspecified emphysema type J43.9 [place] [address] [place] [id number] [place] [address] May, Chronic pain G89.29 [place] [address] [address] May, Syncope and collapse R55 ; C hronic fatigue R53.[address] lung screening R91.8 [place] [address] [place] [id number] [place] [address] May, [place] [address] [place] [id number] [place] [address] Apr, Chronic fatigue R53.82 ; Abn ormal chest CT R93.8 ; Elevated erythrocyte sedimentation rate R70.0 ; Hypothyroid E03.9 and Recurrent major depressive disorder, in partial remission F33.41 [place] [address] [facility] [id number] [address] [place] [address] Apr, Hypothyroid E03.9 [place] [address] [facility] [id number] [address] [place] [address] Apr, Depression F32.9 [place] [address] [facility] [id number] [address] [place] [phone] Apr, [place] [address] [facility] [id number] [address] [place] [address] March, [place] [address] [facility] [id number] [address] [place] [phone] March, Hypothyroid E03.9 [place] [address] [facility] [id number] [address] [place] [address] March, Diabetes mellitus E11.9 and Hypothyroid E03.9 [place] [address] [facility] [id number] [address] [place] [address] March, Diabetes mellitus E11.9 [place] [address] [facility] [id number] [address] [place] [address] March, Hypothyroid E03.9 and Elevat ed liver enzymes R74.8 [place] [address] [facility] [id number] [address] [place] [address] March, Type 2 diabetes mellitus wit h hyperglycemia E11.65 ; 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.4 ; Pulmonary emphysema, unspecified emphysema type J43.9 ; Hypothyroid E03.9 ; Neuropathy G62.9 ; Mixed hyperlipidemia E78.2 ; Chronic pain G89.29 ; Gastroesophageal reflux disease with esophagitis K21.0 ; Irritable bowel syndrome with diarrhea K58.0 ; Overactive bladder N32.81 and Recurrent major depressive disorder, in partial remission F33.41 [place] [address] [facility] [id number] [address] [place] [address] Feb, Chronic pain G89.29 [place] [address] [facility] [id number] [address] [place] [address] Feb, Type 2 diabetes mellitus wit h hyperglycemia E11.65 and Skin lesion of scalp L98.9 [place] [address] [facility] [id number] [address] [place] [address] Feb, [place] [address] [facility] [id number] [address] [place] [address] Jan, Type 2 diabetes mellitus wit h [...] bowel syndrome with diarrhea K58.0 [place] [address] [id number] [address] [place] [address] Jan, [place] [address] [facility] [id number] [address] [place] [address] Jan, Controlled substance agreeme nt signed Z79.899 [place] [address] [place] [id number] [address] [place] [phone] Dec, Type 2 diabetes mellitus wit h [...] and Overweight (BMI 25.0-29.9) E66.3 [place] [address] [place] [id number] [address] [place] [address] Dec, Controlled substance agreeme nt signed Z79.899 [place] [address] [facility] [id number] [address] [place] [address] Nov, Type 2 diabetes mellitus wit h hyperglycemia E11.65 and Current non- adherence to medical treatment Z91.19 [place] [address] [facility] [id number] [address] [place] [address] Nov, [place] [address] [facility] [id number] [address] [place] [address] Nov, Chronic pain G89.29 [place] [address] [id number] [address] [place] [address] Nov, [facility] [address] [id number] [address] [place] [address] Nov, Hypothyroid E03.9 [facility] [address] [id number] [address] [place] [address] Nov, Hypothyroid E03.9 [facility] [address] [id number] [address] [place] [phone] Nov, Pulmonary emphysema, unspeci fied emphysema type J43.9 and Irritable bowel syndrome with diarrhea K58.0 [facility] [address] [id number] [address] [place] [phone] Oct, [facility] [address] [id number] [address] [place] [phone] Oct, [facility] [address] [facility] [id number] [address] [place] [phone] Oct, [facility] [address] [id number] [address] [place] [address] Oct, [facility] [address] [facility] [id number] [address] [place] [address] Oct, Chronic pain G89.29 [facility] [address] [facility] [id number] [address] [place] [address] Oct, Diabetes mellitus E11.9 ; De pression F32.9 ; Mixed hyperlipidemia E78.2 ; Hypotension, unspecified hypotension type I95.9 ; Pulmonary emphysema, unspecified emphysema type J43.9 and Weight loss, unintentional R63.4 [facility] [address] [facility] [id number] [address] [place] [address] Oct, Chronic pain G89.29 [facility] [address] [facility] [id number] [address] [place] [address] Sep, Chronic pain G89.29 [facility] [address] [facility] [id number] [address] [place] [address] Sep, Hypothyroid E03.9 and Diabet es mellitus E11.9 [place] [id number] [place] [id number] [address] [place] [address] Aug, Type 2 diabetes mellitus wit h hyperglycemia E11.65 ; halfway current use of insulin Z79.4 ; Essential (primary) hypertension I10 ; Hypothyroid E03.9 ; Neuropathy G62.9 ; Chronic pain G89.29 ; Mixed hy perlipidemia E78.2 and Encounter for immunization Z23 [facility] [address] [facility] [id number] [address] [place] [address] Aug, Chronic pain G89.29 [place] [address] [place] [id number] [place] [address] Aug, Overactive bladder N32.81 ; Diabetes mellitus E11.9 and Chronic pain G89.29 [place] [address] [place] [id number] [address] [place] [phone] Jul, [place] [address] [place] [id number] [address] [place] [phone] Jun, [place] [address] [address] Jun, [place] [address] [place] [id number] [address] [place] [address] Jun, Hypothyroid E03.9 [place] [address] [place] [id number] [address] [place] [address] Jun, Diabetes mellitus E11.9 ; Hy pothyroid E03.9 ; Neuropathy G62.9 ; Chronic pain G89.29 and Neck mass R22.1 [place] [address] [place] [id number] [address] [place] [address] Apr, [place] [address] [place] [id number] [address] [place] [address] Apr, Acute cystitis without hemat uria N30.00 [place] [address] [place] [id number] [address] [place] [phone] March, [facility] [address] [facility] [id number] [address] [place] [address] March, [facility] [address] [place] [id number] [address] [place] [phone] March, Near syncope R55 [facility] [address] [place] [id number] [place] [address] Feb, [facility] [address] [place] [id number] [place] [address] Feb, Chronic pain G89.29 [facility] [address] [place] [id number] [place] [address] Feb, [facility] [address] [place] [id number] [address] [place] [phone] Feb, [facility] [address] [place] [id number] [place] [address] Jan, Chronic pain G89.29 [facility] [address] [place] [id number] [address] [place] [phone] Jan, [facility] [address] [place] [id number] [address] [place] [address] Jan, [facility] [address] [place] [id number] [address] [place] [address] Jan, Diabetes mellitus E11.9 ; Hy pothyroid E03.9 ; GERD (gastroesophageal reflux disease) K21.9 ; Insomnia G47.00 ; Functional 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 ; Neuropathy G62.9 ; Depression F32.9 ; Chronic pain G89.29 ; Irritable bowel syndrome with diarrhea K58.0 ; Overactive bladder N32.81 ; Mixed hyperlipidemia E78.2 and Bronchitis J40 [facility] [address] [place] [id number] [address] [place] [address] Dec, [facility] [address] [place] [id number] [address] [place] [address] Dec, [facility] [address] [facility] [id number] [address] [place] [address] Dec, [facility] [address] [facility] [id number] [address] [place] [address] Dec, [facility] [address] [facility] [id number] [address] [place] [address] Dec, Chronic pain G89.29 [facility] [address] [facility] [id number] [address] [place] [address] Dec, [facility] [address] [facility] [id number] [address] [place] [address] Dec, [facility] [address] [facility] [id number] [address] [place] [id number] Dec, Type 2 diabetes mellitus wit h foot ulcer E11.621 [facility] [address] [place] [id number] [address] [place] [address] Dec, Type 2 diabetes mellitus wit h foot ulcer E11.621 [facility] [address] [place] [address] Dec, HTN (hypertension) I10 ; Dep ression F32.9 ; Type 2 diabetes mellitus with foot ulcer E11.621 ; Functional 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 ; Irritable bowel syndrome with diarrhea K58.0 ; Chronic pain G89.29 ; Insomnia G47.00 ; Overactive bladder N32.81 ; Mixed hyperlipidemia E78.2 ; Gastroesophageal reflux disease with esophagitis K21.0 and Acquired hypothyroidism E03.9 [facility] [address] [facility] [id number] [address] [place] [address] Nov, [facility] [address] [place] [id number] [address] [place] [address] Oct, [facility] [address] [place] [address] Oct, [facility] [address] [place] [id number] [place] [address] Oct, [place] [address] [address] Sep, Functional 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 ; HTN (hypertension) I10 ; Diabetes mellitus E11.9 ; Depression F32.9 ; Overactive bladder N32.81 ; Mixed hyperlipidemia E78.2 ; Gastroesophageal reflux disease without esophagitis K21.9 ; Chronic pain G89.29 ; Insomnia G47.00 and Acquired hypothyroidism E03.9 [place] [address] [address] Sep, [place] [address] [address] Aug, Encounter for immunization Z 23 [place] [address] [address] Aug, [place] [address] [address] Jul, [place] [address] [address] Jun, Type 2 diabetes mellitus wit hout complications E11.9 ; HTN (hypertension) I10 ; Hypothyroid E03.9 ; Neuropathy G62.9 ; Depression F32.9 ; Chronic pain G89.29 ; GERD (gastroesophageal reflux disease) K21.9 ; Insomnia G47.00 ; Overactive bladder N32.81 ; Mixed hyperlipidemia E78.2 ; Diarrhea of infectious origin A09 and Environmental allergies Z91.09 [place] [address] [place] [id number] [address] [place] [address] Apr, [place] [address] [address] March, Hypothyroidism, unspecified E03.9 and Mixed hyperlipidemia E78.2 [place] [address] [address] March, Diabetes mellitus E11.9 ; HT N (hypertension) I10 ; Hypothyroid E03.9 ; Depression F32.9 ; Overactive bladder N32.81 ; Other chronic pain G89.29 ; Lumbago with sciatica, unspecified side M54.40 ; Environmental allergies Z91.09 and Gastroesophageal reflux disease, esophagitis presence not specified K21.9 [place] [address] [address] March, [place] [address] [address] Jan, HTN (hypertension) I10 ; Hyp othyroid E03.9 ; Neuropathy G62.9 ; Diabetes mellitus E11.9 ; Chronic pain G89.29 ; GERD (gastroesophageal reflux disease) K21.9 ; Overactive bladder N32.81 and Depression F32.9 [place] [address] [address] 12 Dec, 2015 Ear pain, left H92.02 ; HTN (hypertension) I10 ; Hypothyroid E03.9 ; Neuropathy G62.9 ; Diabetes mellitus E11.9 ; Depression F32.9 ; GERD (gastroesophageal reflux disease) K21.9 ; Insomnia G47.00 and Overactive bladder N32.81 [place] [address] [address] Nov, Overactive bladder N32.81 an d Chronic pain G89.29 [place] [address] [address] Nov, Kidney failure N19 [place] [address] [place] [id number] [address] [place] [address] Nov, [place] [address] [address] Nov, [place] [address] [place] [id number] [place] [address] Nov, Diabetes mellitus E11.9 ; De pression F32.9 ; Chronic pain G89.29 ; GERD (gastroesophageal reflux disease) K21.9 ; Insomnia G47.00 ; HTN (hypertension) I10 ; Hypothyroid E03.9 ; COPD (chronic obstructive pulmonary disease) J44.9 ; Bladder incontinence R32 and Incontinence R32 [address] [address] Sep, Type 2 diabetes mellitus wit h foot ulcer E11.621 and Chromosomal abnormality, 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 [address] Sep, [address] [address] Aug, [address] [address] Aug, [address] [address] Aug, HTN (hypertension) I10 ; Enc ounter for immunization Z23 ; Hypothyroid E03.9 ; Neuropathy G62.9 ; Diabetes mellitus E11.9 ; Depression F32.9 ; Chronic pain G89.29 ; GERD (gastroesophageal reflux disease) K21.9 ; Insomnia G47.00 and COPD (chronic obstructive pulmonary disease) J44.[address] [address] Jun, [address] [address] Jun, [address] [address] May, Essential hypertension, ivis gn 401.1 ; Unspecified hypothyroidism 244.9 ; Insomnia, unspecified 780.52 ; Shortness of breath 786.05 ; Depression 311 ; COPD (chronic obstructive pulmonary disease) 496 ; GERD (gastroesophageal reflux disease) 530.81 and Diabetes 1.5, 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 [address] May, [address] [id number] [address] [place] [address] May, [facility] [address] [facility] [id number] [address] [place] [address] May, Shortness of breath 786.05 ; Essential hypertension, benign 401.1 ; Diabetes mellitus 250.00 ; Hyperlipidemia 272.4 ; Hypothyroid 244.9 ; Insomnia 780.52 and Cough 786.2 [facility] [address] [facility] [id number] [address] [place] [address] Apr, [facility] [address] [facility] [id number] [address] [place] [phone] March, Shortness of breath 786.05 ; Nausea with vomiting 787.01 ; Essential hypertension, benign 401.1 ; Diabetes mellitus 250.00 ; Hyperlipidemia 272.4 and Hypothyroid 244.9 [facility] [address] [facility] [id number] [address] [place] [id number] Feb, [facility] [address] [facility] [id number] [address] [place] [phone] Feb, [facility] [address] [facility] [id number] [address] [place] [phone] Jan, [facility] [address] [facility] [id number] [address] [place] [phone] Jan, [facility] [address] [facility] [id number] [address] [place] [id number] Jan, [facility] [address] [facility] [id number] [address] [place] [id number] Jan, [facility] [address] [facility] [id number] [address] [place] [phone] Jan, [facility] [address] [place] [id number] [address] [place] [phone] Jan, [facility] [address] [facility] [id number] [address] [place] [phone] Jan, [facility] [address] [id number] [address] [place] [address], [place] [id number] Jan, [facility] [address] [id number] [address] [place] [address], [place] [id number] Jan, [facility] [address] [address] [id number] [address] [place] [address], [place] [address] Jan, [facility] [address] [id number] [address] [place] [address], [place] [address] Dec, 2014 [facility] [address] [id number] [address] [place] [address], [place] [address] Dec, 2014 [facility] [address] [id number] [address] [place] [address], [place] [address] Dec, 2014 [facility] [address] [id number] [address] [place] [address], [place] [address] Dec, 2014 [facility] [address] [id number] [address] [place] [address], [place] [address] Dec, 2014 [facility] [address] [id number] [address] [place] [address], [place] [address] Dec, 2014 [facility] [address] [id number] [address] [place] [address], [place] [address] Dec, 2014 [facility] [address] [id number] [address] [place] [address] Dec, 2014 [facility] [address] [id number] [address] [place] [address] Dec, 2014 [facility] [address] [id number] [address] [place] [address], [place] [address] Dec, [facility] [address] [id number] [address] [place] [address] Oct, [facility] [address] [id number] [address] [place] [address] Oct, [facility] [address] [id number] [address] [place] [address] Oct, [facility] [address] [id number] [address] [place] [address], [place] [address] Oct, [facility] [address] [id number] [address] [place] [address], [place] [address] Oct, [facility] [address] [id number] [address] [place] [address], [place] [address] Oct, [facility] [address] [id number] [address] [place] [address], [place] [address] Oct, [facility] [address] [id number] [address] [place] [address], [place] [address] Oct, [facility] [address] [id number] [address] [place] [address], [place] [address] Oct, [facility] [address] [id number] [address] [place] [address], [place] [address] Oct, [facility] [address] [id number] [address] [place] [address], [place] [address] Oct, [facility] [address] [id number] [address] [place] [address], [place] [address] Oct, [facility] [address] [id number] [address] [place] [address], [place] [address] Oct, [facility] [address] [id number] [address] [place] [address], [place] [address] Oct, [facility] [address] [id number] [address] [place] [address], [place] [address] Sep, [facility] [address] [id number] [address] [place] [address], [place] [address] Sep, [facility] [address] [id number] [address] [place] [address], [place] [address] Sep, [facility] [address] [id number] [address] [place] [address], [place] [address] Sep, [facility] [address] [id number] [address] [place] [address], [place] [address] 18 Sep, 2014 [facility] [address] [id number] [address] [place] [address], [place] [address] Sep, [facility] [address] [id number] [address] [place] [address], [place] [address] Sep, [facility] [address] [id number] [address] [place] [address], [place] [address] Sep, [facility] [address] [id number] [address] [place] [address], [place] [address] Sep, [facility] [address] [id number] [address] [place] [address], [place] [address] Aug, [facility] [address] [id number] [address] [place] [address], [place] [address] Aug, [facility] [address] [id number] [address] [place] [address], [place] [address] Aug, [facility] [address] [id number] [address] [place] [address], [place] [address] Aug, [facility] [address] [id number] [address] [place] [address], [place] [address] 16 Aug, 2014 [facility] [address] [id number] [address] [place] [address], [place] [address] Aug, [facility] [address] [id number] [address] [place] [address], [place] [address] Aug, [facility] [address] [id number] [address] [place] [address], [place] [address] Aug, [facility] [address] [id number] [address] [place] [address], [place] [address] Aug, [facility] [address] [id number] [address] [place] [address], [place] [address] 29 Jul, 2014 [facility] [address] [id number] [address] [place] [address], [place] [address] Jul, [facility] [address] [id number] [facility] [address] Jul, [facility] [address] [id number] [facility] [address] Jul, [facility] [address] [id number] [facility] [address] Jul, [facility] [address] [id number] [address] [place] [address], [place] [address] Jul, [facility] [address] [id number] [address] [place] [address], [place] [address] Jul, [facility] [address] [id number] [address] [place] [address], [place] [address] Jul, [facility] [address] [id number] [address] [place] [address], [place] [address] Jul, [facility] [address] [id number] [address] [place] [address], [place] [address] Jul, [facility] [address] [id number] [address] [place] [address], [place] [address] Jun, [facility] [address] [id number] [address] [place] [address], [place] [address] Jun, [facility] [address] [id number] [address] [place] [address], [place] [address] Jun, [facility] [address] [id number] [address] [place] [address], [place] [address] Jun, [facility] [address] [id number] [address] [place] [address], [place] [address] Jun, [facility] [address] [id number] [address] [place] [address], [place] [address] Jun, [facility] [address] [id number] [address] [place] [address], [place] [address] Jun, [facility] [address] [id number] [facility] [address] Jun, [facility] [address] [id number] [address] [place] [address], [place] [address] Jun, [facility] [address] [id number] [address] [place] [address], [place] [address] Jun, [facility] [address] [id number] [address] [place] [address], [place] [address] Jun, [facility] [address] [id number] [address] [place] [address], [place] [address] Jun, [facility] [address] [id number] [address] [place] [address], [place] [address] May, [facility] [address] [id number] [address] [place] [address], [place] [address] May, [facility] [address] [id number] [address] [place] [address], [place] [address] May, [facility] [address] [id number] [address] [place] [address], [place] [address] May, [facility] [address] [id number] [address] [place] [address], [place] [address] May, [facility] [address] [id number] [address] [place] [address], [place] [address] May, [facility] [address] [id number] [address] [place] [address], [place] [address] March, [facility] [address] [id number] [address] [place] [address], [place] [address] March, [facility] [address] [id number] [address] [place] [address], [place] [address] March, [facility] [address] [id number] [address] [place] [address], [place] [address] March, [facility] [address] [id number] [address] [place] [address], [place] [address] March, [facility] [address] [id number] [facility] [address] March, [facility] [address] [id number] [facility] [address] Feb, [facility] [address] [id number] [facility] [address] Feb, [facility] [address] [id number] [address] [place] [address], [place] [address] Feb, [facility] [address] [id number] [address] [place] [address], [place] [address] Feb, [facility] [address] [id number] [address] [place] [address], [place] [address] Jan, [facility] [address] [id number] [address] [place] [address], [place] [address] Jan, [facility] [address] [id number] [address] [place] [address], [place] [address] Jan, [facility] [address] [id number] [address] [place] [address], [place] [address] Jan, [facility] [address] [id number] [address] [place] [address], [place] [address] Jan, [facility] [address] [id number] [address] [place] [address], [place] [address] Jan, [facility] [address] [id number] [address] [place] [address], [place] [address] Jan, [facility] [address] [id number] [address] [place] [address], [place] [address] Jan, [facility] [address] [id number] [address] [place] [address], [place] [address] Jan, [facility] [address] [id number] [address] [place] [address], [place] [address] Jan, [facility] [address] [id number] [address] [place] [address], [place] [address] Jan, [facility] [address] [id number] [address] [place] [address], [place] [address] Jan, [facility] [address] [id number] [address] [place] [address], [place] [address] Dec, [facility] [address] [id number] [address] [place] [address], [place] [address] Dec, [facility] [address] [id number] [address] [place] [address], [place] [address] Dec, [facility] [address] [id number] [address] [place] [address], [place] [address] Dec, [facility] [address] [id number] [address] [place] [address], [place] [address] Dec, [facility] [address] [id number] [address] [place] [address], [place] [address] Dec, [facility] [address] [id number] [address] [place] [address], [place] [address] Nov, [facility] [address] [id number] [address] [place] [address], [place] [address] Nov, [facility] [address] [id number] [address] [place] [address], [place] [address] Oct, [facility] [address] [id number] [address] [place] [address], [place] [address] Oct, [facility] [address] [id number] [address] [place] [address], [place] [address] Oct, [facility] [address] [id number] [address] [place] [address], [place] [address] Oct, [facility] [address] [id number] [address] [place] [address], [place] [address] Oct, [facility] [address] [id number] [address] [place] [address], [place] [address] Oct, [facility] [address] [id number] [address] [place] [address], [place] [address] Sep, [facility] [address] [id number] [address] [place] [address], [place] [address] Sep, [facility] [address] [id number] [address] [place] [address], [place] [address] Sep, [facility] [address] [id number] [address] [place] [address], [place] [address] Sep, [facility] [address] [id number] [address] [place] [address], [place] [address] Aug, [facility] [address] [id number] [address] [place] [address], [place] [address] Aug, [facility] [address] [id number] [address] [place] [address], [place] [address] Aug, [facility] [address] [id number] [address] [place] [address], [place] [address] 17 Jul, 2013 [facility] [address] [id number] [address] [place] [address], [place] [address] 14 Jul, 2013 [facility] [address] [id number] [address] [place] [address], [place] [address] 04 Jul, 2013 [facility] [address] [id number] [address] [place] [address], [place] [address] Jun, [facility] [address] [id number] [address] [place] [address], [place] [address] Jun, [facility] [address] [id number] [address] [place] [address], [place] [address] Jun, [facility] [address] [id number] [address] [place] [address], [place] [address] Apr, [facility] [address] [id number] [address] [place] [address], [place] [address] Apr, [facility] [address] [id number] [address] [place] [address], [place] [address] March, [facility] [address] [id number] [address] [place] [address], [place] [address] March, [facility] [address] [id number] [address] [place] [address], [place] [address] March, [facility] [address] [id number] [address] [place] [address], [place] [address] March, [facility] [address] [id number] [address] [place] [address], [place] [address] Feb, [facility] [address] [id number] [address] [place] [address], [place] [address] Jan, [facility] [address] [id number] [address] [place] [address], [place] [address] Dec, [facility] [address] [id number] [address] [place] [address], [place] [address] 08 Dec, 2012 [facility] [address] [id number] [address] [place] [address], [place] [address] Dec, [facility] [address] [id number] [address] [place] [address], [place] [address] Nov, [facility] [address] [id number] [address] [place] [address], [place] [address] Oct, [facility] [address] [id number] [address] [place] [address], [place] [address] Oct, [facility] [address] [id number] [address] [place] [address], [place] [address] Sep, [facility] [address] [id number] [address] [place] [address], [place] [address] Sep, [facility] [address] [id number] [address] [place] [address], [place] [address] Sep, [facility] [address] [id number] [address] [place] [address], [place] [address] Sep, [facility] [address] [id number] [address] [place] [address], [place] [address] 08 Sep, 2012 [facility] [address] [id number] [address] [place] [address], [place] [address] Sep, [facility] [address] [id number] [address] [place] [address], [place] [address] Sep, [facility] [address] [id number] [address] [place] [address], [place] [address] Aug, [facility] [address] [id number] [address] [place] [address], [place] [address] Aug, [facility] [address] [id number] [address] [place] [address], [place] [address] Aug, [facility] [address] [id number] [address] [place] [address], [place] [address] Aug, [facility] [address] [id number] [address] [place] [address], [place] [address] Aug, [facility] [address] [id number] [address] [place] [address], [place] [address] Aug, [facility] [address] [id number] [address] [place] [address], [place] [address] Aug, [facility] [address] [id number] [address] [place] [address], [place] [address] Aug, [facility] [address] [id number] [address] [place] [address], [place] [address] Jul, [facility] [address] [id number] [address] [place] [address], [place] [address] Jul, [facility] [address] [id number] [address] [place] [address], [place] [address] Jun, [facility] [address] [id number] [address] [place] [address], [place] [address] May, [facility] [address] [id number] [address] [place] [address], [place] [address] Apr, [facility] [address] [id number] [address] [place] [address], [place] [address] Apr, [facility] [address] [id number] [address] [place] [address], [place] [address] Apr, [facility] [address] [id number] [address] [place] [address], [place] [address] March, [facility] [address] [id number] [address] [place] [address], [place] [address] March, [facility] [address] [id number] [address] [place] [address], [place] [address] March, [facility] [address] [id number] [address] [place] [address], [place] [address] March, [facility] [address] [id number] [address] [place] [address], [place] [address] March, [facility] [address] [id number] [address] [place] [address], [place] [address] March, [facility] [address] [id number] [address] [place] [address], [place] [address] March, [facility] [address] [id number] [address] [place] [address], [place] [address] Jan, [facility] [address] [id number] [address] [place] [address], [place] [address] Jan, [facility] [address] [id number] [address] [place] [address], [place] [address] Jan, [facility] [address] [id number] [address] [place] [address], [place] [address] Jan, [facility] [address] [id number] [address] [place] [address], [place] [address] Jan, [facility] [address] [id number] [address] [place] [address], [place] [address] Dec, [facility] [address] [id number] [address] [place] [address], [place] [address] 06 Dec, 2011 [facility] [address] [id number] [address] [place] [address], [place] [address] 18 Nov, 2011 [facility] [address] [id number] [address] [place] [address], [place] [address] 10 Nov, 2011 [facility] [address] [id number] [address] [place] [address], [place] [address] Nov, [facility] [address] [id number] [address] [place] [address], [place] [address] 05 Nov, 2011 [facility] [address] [id number] [address] [place] [address], [place] [address] Oct, [facility] [address] [id number] [address] [place] [address], [place] [address] Oct, [facility] [address] [id number] [address] [place] [address], [place] [address] 14 Sep, 2011 [facility] [address] [id number] [address] [place] [address], [place] [address] Sep, [facility] [address] [id number] [address] [place] [address], [place] [address] Sep, [facility] [address] [id number] [address] [place] [address], [place] [address] May, [facility] [address] [id number] [address] [place] [address], [place] [address] Nov, [facility] [address] [id number] [address] [place] [address], [place] [address] 29 Oct, 2010 [facility] [address] [id number] [address] [place] [address], [place] [address] 14 Oct, 2010 [facility] [address] [id number] [address] [place] [address], [place] [address] 08 Oct, 2010 [facility] [address] [id number] [address] [place] [address], [place] [address] 15 Sep, 2010 [facility] [address] [id number] [address] [place] [address] Sep, [facility] [address] [id number] [address] [place] [address] Aug, [facility] [address] [id number] [address] [place] [address] March, [facility] [address] [id number] [address] [place] [address] Oct, [facility] [address] [id number] [address] [place] [address] Oct, [facility] [address] [id number] [address] [place] [id number] Oct, [facility] [address] [id number] [address] [place] [id number] Oct, [facility] [address] [id number] [address] [place] [phone] Sep, [facility] [address] [id number] [address] [place] [address] Sep, [facility] [address] [id number] [address] [place] [address] Sep, [facility] [address] [id number] [address] [place] [address] Aug, [facility] [address] [id number] [address] [place] [id number] Aug, [facility] [address] [id number] [address] [place] [id number] Aug, [facility] [address] [id number] [address] [place] [address] Jan, IMMUNIZATIONS No Known Immunizations SOCIAL HISTORY Never Assessed REASON FOR VISIT EMR-[facility] PLAN OF CARE VITAL SIGNS MEDICATIONS Unknown [...]
--- OUTSIDE RECORDS SUMMARY | 2020-06-13 16:15 | XMS REPORT ---
Author Author Jah Durant Doctor Organization [facility] Address Unknown Phone Unavailable Care Team Providers Care Section Repairer Name Role Phone Migration, Doctor Unavailable Unavailable PROBLEMS Type Condition ICD9-CM Code XSK95-WI Code Onset Dates Condition S tatus SNOMED Code Problem Hypothyroid E03.9 Active 90444289 Problem Neuropathy G62.9 Active 796101178 Problem Mixed hyperlipidemia E78.2 Active 020614783 Problem Overactive bladder N32.81 Active 2 95252288 Problem Irritable bowel syndrome with diarrhea K58.0 Active 167311837 Problem Gastroesophageal reflux disease with esophagitis K 21.0 Active 780086316 Problem Type 2 diabetes mellitus with hyperglycemia E11.65 Active 56133246 Problem penitentiary current use of insulin Z79.4 Active 827839871 Problem Current non-adherence to medical treatment Z91.19 Active 7115128 Problem Recurrent major depressive disorder, in partial remission F33.41 Active 65524853 Problem Chronic fatigue R53.82 Active 8422 9001 Problem 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 Active 602626600 Problem Pulmonary emphysema, unspecified emphysema type J4 3.9 Active 32178702 Problem Thrombocytosis D47.3 Active 24795 09 Problem Acquired hypothyroidism E03.9 Active 249825628 Problem Essential (primary) hypertension I10 Active 40097455 Problem Chronic pain G89.29 Active 9076971 1 Problem Anxiety disorder, unspecified type F41.9 Active 025950988 Problem Major depressive disorder, recurrent episode, moderate F33.1 Active 279567355 Problem Hypertriglyceridemia E78.1 Active 412979115 Problem Gastroparesis K31.84 Active 760909 006 ALLERGIES No Information ENCOUNTERS Encounter Location Date Diagnosis [address] [address] Feb, [facility] [address] [facility] [id number] [place] [address] Feb, Other chronic pain G89.29 an d Chronic pain G89.29 [facility] [address] [facility] [id number] [address] [place] [id number] 18 Jan, 2019 Mixed hyperlipidemia E78.2 [facility] [address] [facility] [id number] [address] [place] [address] 11 Jan, 2019 Chronic pain G89.29 [facility] [address] [facility] [id number] [address] [place] [id number] 08 Jan, 2019 Type 2 diabetes mellitus wit h hyperglycemia E11.65 ; Mixed hyperlipidemia E78.2 ; penitentiary current use of insulin Z79.4 ; Acquired hypothyroidism E03.9 and Essential (primary) hypertension I10 [facility] [address] [facility] [id number] [address] [place] [address] Dec, Chronic pain G89.29 [facility] [address] [facility] [id number] [address] [place] [id number] 14 Nov, 2018 Chronic pain G89.29 [facility] [address] [facility] [id number] [address] [place] [id number] Nov, [facility] [address] [facility] [id number] [address] [place] [id number] Oct, Chronic pain G89.29 [facility] [address] [place] [id number] [address] [place] [id number] Oct, [facility] [address] [facility] [id number] [address] [place] [address] Sep, [facility] [address] [facility] [id number] [address] [place] [address] Sep, Type 2 diabetes mellitus wit h hyperglycemia E11.65 [facility] [address] [facility] [id number] [address] [place] [id number] 16 Sep, 2018 Chronic pain G89.29 [facility] [address] [facility] [id number] [address] [place] [phone] Sep, [facility] [address] [place] [id number] [address] [place] [id number] Sep, Type 2 diabetes mellitus wit h hyperglycemia E11.65 ; Irritable bowel syndrome with diarrhea K58.0 ; Gastroparesis K31.84 ; 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 and Dermatitis L30.9 [place] [address] [facility] [id number] [address] [place] [id number] Aug, Chronic pain G89.29 [place] [address] [facility] [id number] [address] [place] [address] Jul, Chronic pain G89.29 [place] [address] [place] [id number] [address] [place] [address] Jun, Type 2 diabetes mellitus wit h hyperglycemia E11.65 ; Neuropathy G62.9 ; Recurrent major depressive disorder, in partial remission F33.41 ; Chronic pain G89.29 and Hypertriglyceridemia E78.1 [place] [address] [place] [id number] [address] [place] [id number] Jun, Hypothyroid E03.9 [place] [address] [place] [id number] [address] [place] [id number] Jun, Major depressive disorder, r ecurrent episode, moderate F33.1 and Anxiety disorder, unspecified type F41.9 [place] [address] [place] [id number] [address] [place] [id number] Jun, [place] [id number] [place] [address] Jun, Type 2 diabetes mellitus wit h hyperglycemia E11.65 ; 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 coordinator current use of insulin Z79.4 ; Recurrent major depressive disorder, in partial remission F33.41 ; Hypothyroid E03.9 ; Candidal dermatitis B37.2 and Weakness generalized R53.1 [place] [address] [place] [id number] [address] [place] [id number] May, [place] [address] [place] [id number] [address] [place] [id number] May, [place] [address] [place] [id number] [address] [place] [phone] May, [facility] [address] [facility] [id number] [address] [place] [address] May, Generalized abdominal pain R 10.84 and Candidal dermatitis B37.2 [place] [address] [facility] [id number] [address] [place] [phone] May, [place] [address] [place] [id number] [place] [address] May, [place] [address] [facility] [id number] [place] [phone] May, Nodular radiologic density R 93.8 ; Weight loss, unintentional R63.4 and Pulmonary emphysema, unspecified emphysema type J43.9 [place] [address] [place] [id number] [place] [address] May, Chronic pain G89.29 [place] [address] [address] May, Syncope and collapse R55 ; C hronic fatigue R53.[address] lung screening R91.8 [place] [address] [place] [id number] [place] [address] May, [place] [address] [place] [id number] [place] [address] Apr, Chronic fatigue R53.82 ; Abn ormal chest CT R93.8 ; Elevated erythrocyte sedimentation rate R70.0 ; Hypothyroid E03.9 and Recurrent major depressive disorder, in partial remission F33.41 [place] [address] [facility] [id number] [address] [place] [id number] Apr, Hypothyroid E03.9 [place] [address] [facility] [id number] [address] [place] [phone] Apr, Depression F32.9 [place] [address] [facility] [id number] [address] [place] [phone] Apr, [place] [address] [facility] [id number] [address] [place] [phone] March, [place] [address] [facility] [id number] [address] [place] [id number] March, Hypothyroid E03.9 [place] [address] [facility] [id number] [address] [place] [address] March, Diabetes mellitus E11.9 and Hypothyroid E03.9 [place] [address] [facility] [id number] [address] [place] [phone] March, Diabetes mellitus E11.9 [place] [address] [facility] [id number] [address] [place] [address] March, Hypothyroid E03.9 and Elevat ed liver enzymes R74.8 [place] [address] [facility] [id number] [address] [place] [address] March, Type 2 diabetes mellitus wit h hyperglycemia E11.65 ; 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 coordinator current use of insulin Z79.4 ; Pulmonary emphysema, unspecified emphysema type J43.9 ; Hypothyroid E03.9 ; Neuropathy G62.9 ; Mixed hyperlipidemia E78.2 ; Chronic pain G89.29 ; Gastroesophageal reflux disease with esophagitis K21.0 ; Irritable bowel syndrome with diarrhea K58.0 ; Overactive bladder N32.81 and Recurrent major depressive disorder, in partial remission F33.41 [place] [address] [facility] [id number] [address] [place] [address] Feb, Chronic pain G89.29 [place] [address] [facility] [id number] [address] [place] [address] Feb, Type 2 diabetes mellitus wit h hyperglycemia E11.65 and Skin lesion of scalp L98.9 [place] [address] [facility] [id number] [address] [place] [address] Feb, [place] [address] [facility] [id number] [address] [place] [phone] Jan, Type 2 diabetes mellitus wit h hyperglycemia E11.65 ; penitentiary current use of insulin Z79.4 ; Essential (primary) hypertension I10 ; Pulmonary emphysema, unspecified emphysema type J43.9 ; Chronic pain G89.29 ; Controlled substance agreement signed Z79.899 ; Hypothyroid E03.9 ; Neuropathy G62.9 ; Gastroesophageal reflux disease with esophagitis K21.0 ; Overactive bladder N32.81 ; Depression F32.9 and Irritable bowel syndrome with diarrhea K58.0 [place] [address] [id number] [address] [place] [id number] Jan, [place] [address] [facility] [id number] [address] [place] [address] Jan, Controlled substance agreeme nt signed Z79.899 [place] [address] [place] [id number] [address] [place] [id number] Dec, Type 2 diabetes mellitus wit h hyperglycemia E11.65 ; Controlled substance agreement signed Z79.899 ; penitentiary current use of insulin Z79.4 ; Essential (primary) hypertension I10 ; Hypothyroid E03.9 ; Neuropathy G62.9 ; Depression F32.9 ; Mixed hyperlipidemia E78.2 ; Irritable bowel syndrome with diarrhea K58.0 ; Gastroesophageal reflux disease with esophagitis K21.0 ; Thrombocytosis D47.3 ; Current non-adherence to medical treatment Z91.19 and Overweight (BMI 25.0-29.9) E66.3 [place] [address] [place] [id number] [address] [place] [id number] Dec, Controlled substance agreeme nt signed Z79.899 [place] [address] [facility] [id number] [address] [place] [id number] Nov, Type 2 diabetes mellitus wit h hyperglycemia E11.65 and Current non- adherence to medical treatment Z91.19 [place] [address] [facility] [id number] [address] [place] [id number] Nov, [place] [address] [facility] [id number] [address] [place] [phone] Nov, Chronic pain G89.29 [place] [address] [id number] [address] [place] [phone] Nov, [facility] [address] [id number] [address] [place] [id number] Nov, Hypothyroid E03.9 [facility] [address] [id number] [address] [place] [id number] Nov, Hypothyroid E03.9 [facility] [address] [id number] [address] [place] [id number] Nov, Pulmonary emphysema, unspeci fied emphysema type J43.9 and Irritable bowel syndrome with diarrhea K58.0 [facility] [address] [id number] [address] [place] [phone] Oct, [facility] [address] [id number] [address] [place] [id number] Oct, [facility] [address] [facility] [id number] [address] [place] [phone] Oct, [facility] [address] [id number] [address] [place] [address] Oct, [facility] [address] [facility] [id number] [address] [place] [address] Oct, Chronic pain G89.29 [facility] [address] [facility] [id number] [address] [place] [address] Oct, Diabetes mellitus E11.9 ; De pression F32.9 ; Mixed hyperlipidemia E78.2 ; Hypotension, unspecified hypotension type I95.9 ; Pulmonary emphysema, unspecified emphysema type J43.9 and Weight loss, unintentional R63.4 [facility] [address] [facility] [id number] [address] [place] [address] Oct, Chronic pain G89.29 [facility] [address] [facility] [id number] [address] [place] [address] Sep, Chronic pain G89.29 [facility] [address] [facility] [id number] [address] [place] [id number] Sep, Hypothyroid E03.9 and Diabet es mellitus E11.9 [place] [address] [place] [id number] [address] [place] [address] Aug, Type 2 diabetes mellitus wit h hyperglycemia E11.65 ; penitentiary current use of insulin Z79.4 ; Essential (primary) hypertension I10 ; Hypothyroid E03.9 ; Neuropathy G62.9 ; Chronic pain G89.29 ; Mixed hy perlipidemia E78.2 and Encounter for immunization Z23 [facility] [address] [facility] [id number] [address] [place] [address] Aug, Chronic pain G89.29 [place] [address] [place] [id number] [place] [phone] Aug, Overactive bladder N32.81 ; Diabetes mellitus E11.9 and Chronic pain G89.29 [place] [address] [place] [id number] [address] [place] [address] Jul, [place] [address] [place] [id number] [address] [place] [phone] Jun, [place] [address] [address] Jun, [place] [address] [place] [id number] [address] [place] [id number] Jun, Hypothyroid E03.9 [place] [address] [place] [id number] [address] [place] [address] Jun, Diabetes mellitus E11.9 ; Hy pothyroid E03.9 ; Neuropathy G62.9 ; Chronic pain G89.29 and Neck mass R22.1 [place] [address] [place] [id number] [address] [place] [phone] Apr, [place] [address] [place] [id number] [address] [place] [phone] Apr, Acute cystitis without hemat uria N30.00 [place] [address] [place] [id number] [address] [place] [id number] March, [facility] [address] [facility] [id number] [address] [place] [id number] March, [facility] [address] [place] [id number] [address] [place] [phone] March, Near syncope R55 [facility] [address] [place] [id number] [place] [address] Feb, [facility] [address] [place] [id number] [place] [address] Feb, Chronic pain G89.29 [facility] [address] [place] [id number] [place] [address] Feb, [facility] [address] [place] [id number] [address] [place] [address] Feb, [facility] [address] [place] [id number] [place] [address] Jan, Chronic pain G89.29 [facility] [address] [place] [id number] [address] [place] [id number] Jan, [facility] [address] [place] [id number] [address] [place] [address] Jan, [facility] [address] [place] [id number] [address] [place] [address] Jan, Diabetes mellitus E11.9 ; Hy pothyroid E03.9 ; GERD (gastroesophageal reflux disease) K21.9 ; Insomnia G47.00 ; Functional 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 ; Neuropathy G62.9 ; Depression F32.9 ; Chronic pain G89.29 ; Irritable bowel syndrome with diarrhea K58.0 ; Overactive bladder N32.81 ; Mixed hyperlipidemia E78.2 and Bronchitis J40 [facility] [address] [place] [id number] [address] [place] [id number] Dec, [facility] [address] [place] [id number] [address] [place] [id number] Dec, [facility] [address] [facility] [id number] [address] [place] [phone] Dec, [facility] [address] [facility] [id number] [address] [place] [id number] Dec, [facility] [address] [facility] [id number] [address] [place] [address] Dec, Chronic pain G89.29 [facility] [address] [facility] [id number] [address] [place] [id number] Dec, [facility] [address] [facility] [id number] [address] [place] [phone] Dec, [facility] [address] [facility] [id number] [address] [place] [phone] Dec, Type 2 diabetes mellitus wit h foot ulcer E11.621 [facility] [address] [place] [id number] [address] [place] [address] Dec, Type 2 diabetes mellitus wit h foot ulcer E11.621 [facility] [id number] [place] [address] Dec, HTN (hypertension) I10 ; Dep ression F32.9 ; Type 2 diabetes mellitus with foot ulcer E11.621 ; Functional 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 ; Irritable bowel syndrome with diarrhea K58.0 ; Chronic pain G89.29 ; Insomnia G47.00 ; Overactive bladder N32.81 ; Mixed hyperlipidemia E78.2 ; Gastroesophageal reflux disease with esophagitis K21.0 and Acquired hypothyroidism E03.9 [facility] [address] [facility] [id number] [address] [place] [address] Nov, [facility] [address] [place] [id number] [address] [place] [address] Oct, [facility] [id number] [place] [address] Oct, [facility] [address] [place] [id number] [place] [address] Oct, [place] [address] [address] Sep, Functional 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 ; HTN (hypertension) I10 ; Diabetes mellitus E11.9 ; Depression F32.9 ; Overactive bladder N32.81 ; Mixed hyperlipidemia E78.2 ; Gastroesophageal reflux disease without esophagitis K21.9 ; Chronic pain G89.29 ; Insomnia G47.00 and Acquired hypothyroidism E03.9 [place] [address] [address] Sep, [place] [address] [address] Aug, Encounter for immunization Z 23 [place] [address] [address] Aug, [place] [address] [address] Jul, [place] [address] [address] Jun, Type 2 diabetes mellitus wit hout complications E11.9 ; HTN (hypertension) I10 ; Hypothyroid E03.9 ; Neuropathy G62.9 ; Depression F32.9 ; Chronic pain G89.29 ; GERD (gastroesophageal reflux disease) K21.9 ; Insomnia G47.00 ; Overactive bladder N32.81 ; Mixed hyperlipidemia E78.2 ; Diarrhea of infectious origin A09 and Environmental allergies Z91.09 [place] [address] [place] [id number] [place] [address] Apr, [place] [address] [address] March, Hypothyroidism, unspecified E03.9 and Mixed hyperlipidemia E78.2 [place] [address] [address] March, Diabetes mellitus E11.9 ; HT N (hypertension) I10 ; Hypothyroid E03.9 ; Depression F32.9 ; Overactive bladder N32.81 ; Other chronic pain G89.29 ; Lumbago with sciatica, unspecified side M54.40 ; Environmental allergies Z91.09 and Gastroesophageal reflux disease, esophagitis presence not specified K21.9 [place] [address] [address] March, [place] [address] [address] Jan, HTN (hypertension) I10 ; Hyp othyroid E03.9 ; Neuropathy G62.9 ; Diabetes mellitus E11.9 ; Chronic pain G89.29 ; GERD (gastroesophageal reflux disease) K21.9 ; Overactive bladder N32.81 and Depression F32.9 [place] [address] [address] 12 Dec, 2015 Ear pain, left H92.02 ; HTN (hypertension) I10 ; Hypothyroid E03.9 ; Neuropathy G62.9 ; Diabetes mellitus E11.9 ; Depression F32.9 ; GERD (gastroesophageal reflux disease) K21.9 ; Insomnia G47.00 and Overactive bladder N32.81 [place] [address] [address] Nov, Overactive bladder N32.81 an d Chronic pain G89.29 [place] [address] [address] Nov, Kidney failure N19 [place] [address] [place] [id number] [address] [place] [address] Nov, [place] [address] [address] Nov, [place] [address] [place] [id number] [place] [address] Nov, Diabetes mellitus E11.9 ; De pression F32.9 ; Chronic pain G89.29 ; GERD (gastroesophageal reflux disease) K21.9 ; Insomnia G47.00 ; HTN (hypertension) I10 ; Hypothyroid E03.9 ; COPD (chronic obstructive pulmonary disease) J44.9 ; Bladder incontinence R32 and Incontinence R32 [address] [address] Sep, Type 2 diabetes mellitus wit h foot ulcer E11.621 and Chromosomal abnormality, 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 [address] Sep, [address] [address] Aug, [address] [address] Aug, [address] [address] Aug, HTN (hypertension) I10 ; Enc ounter for immunization Z23 ; Hypothyroid E03.9 ; Neuropathy G62.9 ; Diabetes mellitus E11.9 ; Depression F32.9 ; Chronic pain G89.29 ; GERD (gastroesophageal reflux disease) K21.9 ; Insomnia G47.00 and COPD (chronic obstructive pulmonary disease) J44.[address] [address] Jun, [address] [address] Jun, [address] [address] May, Essential hypertension, ivis gn 401.1 ; Unspecified hypothyroidism 244.9 ; Insomnia, unspecified 780.52 ; Shortness of breath 786.05 ; Depression 311 ; COPD (chronic obstructive pulmonary disease) 496 ; GERD (gastroesophageal reflux disease) 530.81 and Diabetes 1.5, 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 [address] May, [address] [id number] [address] [place] [address] May, [facility] [address] [facility] [id number] [address] [place] [address] May, Shortness of breath 786.05 ; Essential hypertension, benign 401.1 ; Diabetes mellitus 250.00 ; Hyperlipidemia 272.4 ; Hypothyroid 244.9 ; Insomnia 780.52 and Cough 786.2 [facility] [address] [facility] [id number] [address] [place] [address] Apr, [facility] [address] [facility] [id number] [address] [place] [phone] March, Shortness of breath 786.05 ; Nausea with vomiting 787.01 ; Essential hypertension, benign 401.1 ; Diabetes mellitus 250.00 ; Hyperlipidemia 272.4 and Hypothyroid 244.9 [facility] [address] [facility] [id number] [address] [place] [phone] Feb, [facility] [address] [facility] [id number] [address] [place] [phone] Feb, [facility] [address] [facility] [id number] [address] [place] [id number] Jan, [facility] [address] [facility] [id number] [address] [place] [phone] Jan, [facility] [address] [facility] [id number] [address] [place] [phone] Jan, [facility] [address] [facility] [id number] [address] [place] [phone] Jan, [facility] [address] [facility] [id number] [address] [place] [phone] Jan, [facility] [address] [place] [id number] [address] [place] [phone] Jan, [facility] [address] [facility] [id number] [address] [place] [id number] Jan, [facility] [address] [id number] [address] [place] [address], [place] [id number] Jan, [facility] [address] [id number] [address] [place] [address], [place] [address] Jan, [facility] [address] [id number] [address] [place] [address], [place] [address] Jan, [facility] [address] [id number] [address] [place] [address], [place] [address] Dec, 2014 [facility] [address] [id number] [address] [place] [address], [place] [address] Dec, 2014 [facility] [address] [id number] [address] [place] [address], [place] [address] Dec, 2014 [facility] [address] [id number] [address] [place] [address], [place] [address] Dec, 2014 [facility] [address] [id number] [address] [place] [address], [place] [address] Dec, 2014 [facility] [address] [id number] [address] [place] [address], [place] [address] Dec, 2014 [facility] [address] [id number] [address] [place] [address], [place] [id number] Dec, 2014 [facility] [address] [id number] [address] [place] [id number] Dec, 2014 [facility] [address] [id number] [address] [place] [id number] Dec, 2014 [facility] [address] [id number] [address] [place] [address], [place] [address] Dec, [facility] [address] [id number] [address] [place] [id number] Oct, [facility] [address] [id number] [address] [place] [id number] Oct, [facility] [address] [id number] [address] [place] [id number] Oct, [facility] [address] [id number] [address] [place] [address], [place] [address] Oct, [facility] [address] [id number] [address] [place] [address], [place] [address] Oct, [facility] [address] [id number] [address] [place] [address], [place] [address] Oct, [facility] [address] [id number] [address] [place] [address], [place] [address] Oct, [facility] [address] [id number] [address] [place] [address], [place] [address] Oct, [facility] [address] [id number] [address] [place] [address], [place] [address] Oct, [facility] [address] [id number] [address] [place] [address], [place] [address] Oct, [facility] [address] [id number] [address] [place] [address], [place] [address] Oct, [facility] [address] [id number] [address] [place] [address], [place] [address] Oct, [facility] [address] [id number] [address] [place] [address], [place] [address] Oct, [facility] [address] [id number] [address] [place] [address], [place] [address] Oct, [facility] [address] [id number] [address] [place] [address], [place] [address] Sep, [facility] [address] [id number] [address] [place] [address], [place] [address] Sep, [facility] [address] [id number] [address] [place] [address], [place] [address] Sep, [facility] [address] [id number] [address] [place] [address], [place] [address] Sep, [facility] [address] [id number] [address] [place] [address], [place] [id number] 18 Sep, 2014 [facility] [address] [id number] [address] [place] [address], [place] [address] Sep, [facility] [address] [id number] [address] [place] [address], [place] [address] Sep, [facility] [address] [id number] [address] [place] [address], [place] [address] Sep, [facility] [address] [id number] [address] [place] [address], [place] [address] Sep, [facility] [address] [id number] [address] [place] [address], [place] [address] Aug, [facility] [address] [id number] [address] [place] [address], [place] [address] Aug, [facility] [address] [id number] [address] [place] [address], [place] [address] Aug, [facility] [address] [id number] [address] [place] [address], [place] [address] Aug, [facility] [address] [id number] [address] [place] [address], [place] [address] 16 Aug, 2014 [facility] [address] [id number] [address] [place] [address], [place] [address] Aug, [facility] [address] [id number] [address] [place] [address], [place] [address] Aug, [facility] [address] [id number] [address] [place] [address], [place] [address] Aug, [facility] [address] [id number] [address] [place] [address], [place] [address] Aug, [facility] [address] [id number] [address] [place] [address], [place] [id number] 29 Jul, 2014 [facility] [address] [id number] [address] [place] [address], [place] [address] Jul, [facility] [address] [id number] [address] [address] Jul, [facility] [address] [id number] [address] [address] Jul, [facility] [address] [id number] [address] [address] Jul, [facility] [address] [id number] [address] [place] [address], [place] [address] Jul, [facility] [address] [id number] [address] [place] [address], [place] [address] Jul, [facility] [address] [id number] [address] [place] [address], [place] [address] Jul, [facility] [address] [id number] [address] [place] [address], [place] [address] Jul, [facility] [address] [id number] [address] [place] [address], [place] [address] Jul, [facility] [address] [id number] [address] [place] [address], [place] [address] Jun, [facility] [address] [id number] [address] [place] [address], [place] [address] Jun, [facility] [address] [id number] [address] [place] [address], [place] [address] Jun, [facility] [address] [id number] [address] [place] [address], [place] [address] Jun, [facility] [address] [id number] [address] [place] [address], [place] [address] Jun, [facility] [address] [id number] [address] [place] [address], [place] [address] Jun, [facility] [address] [id number] [address] [place] [address], [place] [address] Jun, [facility] [address] [id number] [address] [address] Jun, [facility] [address] [id number] [address] [place] [address], [place] [address] Jun, [facility] [address] [id number] [address] [place] [address], [place] [address] Jun, [facility] [address] [id number] [address] [place] [address], [place] [address] Jun, [facility] [address] [id number] [address] [place] [address], [place] [address] Jun, [facility] [address] [id number] [address] [place] [address], [place] [address] May, [facility] [address] [id number] [address] [place] [address], [place] [address] May, [facility] [address] [id number] [address] [place] [address], [place] [address] May, [facility] [address] [id number] [address] [place] [address], [place] [address] May, [facility] [address] [id number] [address] [place] [address], [place] [address] May, [facility] [address] [id number] [address] [place] [address], [place] [address] May, [facility] [address] [id number] [address] [place] [address], [place] [address] March, [facility] [address] [id number] [address] [place] [address], [place] [address] March, [facility] [address] [id number] [address] [place] [address], [place] [address] March, [facility] [address] [id number] [address] [place] [address], [place] [address] March, [facility] [address] [id number] [address] [place] [address], [place] [address] March, [facility] [address] [id number] [address] [address] March, [facility] [address] [id number] [address] [address] Feb, [facility] [address] [id number] [address] [address] Feb, [facility] [address] [id number] [address] [place] [address], [place] [address] Feb, [facility] [address] [id number] [address] [place] [address], [place] [address] Feb, [facility] [address] [id number] [address] [place] [address], [place] [address] Jan, [facility] [address] [id number] [address] [place] [address], [place] [address] Jan, [facility] [address] [id number] [address] [place] [address], [place] [address] Jan, [facility] [address] [id number] [address] [place] [address], [place] [address] Jan, [facility] [address] [id number] [address] [place] [address], [place] [address] Jan, [facility] [address] [id number] [address] [place] [address], [place] [address] Jan, [facility] [address] [id number] [address] [place] [address], [place] [address] Jan, [facility] [address] [id number] [address] [place] [address], [place] [address] Jan, [facility] [address] [id number] [address] [place] [address], [place] [address] Jan, [facility] [address] [id number] [address] [place] [address], [place] [address] Jan, [facility] [address] [id number] [address] [place] [address], [place] [address] Jan, [facility] [address] [id number] [address] [place] [address], [place] [address] Jan, [facility] [address] [id number] [address] [place] [address], [place] [address] Dec, [facility] [address] [id number] [address] [place] [address], [place] [address] Dec, [facility] [address] [id number] [address] [place] [address], [place] [address] Dec, [facility] [address] [id number] [address] [place] [address], [place] [address] Dec, [facility] [address] [id number] [address] [place] [address], [place] [address] Dec, [facility] [address] [id number] [address] [place] [address], [place] [address] Dec, [facility] [address] [id number] [address] [place] [address], [place] [address] Nov, [facility] [address] [id number] [address] [place] [address], [place] [address] Nov, [facility] [address] [id number] [address] [place] [address], [place] [address] Oct, [facility] [address] [id number] [address] [place] [address], [place] [address] Oct, [facility] [address] [id number] [address] [place] [address], [place] [address] Oct, [facility] [address] [id number] [address] [place] [address], [place] [address] Oct, [facility] [address] [id number] [address] [place] [address], [place] [address] Oct, [facility] [address] [id number] [address] [place] [address], [place] [address] Oct, [facility] [address] [id number] [address] [place] [address], [place] [address] Sep, [facility] [address] [id number] [address] [place] [address], [place] [address] Sep, [facility] [address] [id number] [address] [place] [address], [place] [address] Sep, [facility] [address] [id number] [address] [place] [address], [place] [address] Sep, [facility] [address] [id number] [address] [place] [address], [place] [address] Aug, [facility] [address] [id number] [address] [place] [address], [place] [address] Aug, [facility] [address] [id number] [address] [place] [address], [place] [address] Aug, [facility] [address] [id number] [address] [place] [address], [place] [address] 17 Jul, 2013 [facility] [address] [id number] [address] [place] [address], [place] [address] 14 Jul, 2013 [facility] [address] [id number] [address] [place] [address], [place] [address] 04 Jul, 2013 [facility] [address] [id number] [address] [place] [address], [place] [address] Jun, [facility] [address] [id number] [address] [place] [address], [place] [address] Jun, [facility] [address] [id number] [address] [place] [address], [place] [address] Jun, [facility] [address] [id number] [address] [place] [address], [place] [address] Apr, [facility] [address] [id number] [address] [place] [address], [place] [address] Apr, [facility] [address] [id number] [address] [place] [address], [place] [address] March, [facility] [address] [id number] [address] [place] [address], [place] [address] March, [facility] [address] [id number] [address] [place] [address], [place] [address] March, [facility] [address] [id number] [address] [place] [address], [place] [address] March, [facility] [address] [id number] [address] [place] [address], [place] [address] Feb, [facility] [address] [id number] [address] [place] [address], [place] [address] Jan, [facility] [address] [id number] [address] [place] [address], [place] [address] Dec, [facility] [address] [id number] [address] [place] [address], [place] [id number] 08 Dec, 2012 [facility] [address] [id number] [address] [place] [address], [place] [address] Dec, [facility] [address] [id number] [address] [place] [address], [place] [address] Nov, [facility] [address] [id number] [address] [place] [address], [place] [address] Oct, [facility] [address] [id number] [address] [place] [address], [place] [address] Oct, [facility] [address] [id number] [address] [place] [address], [place] [address] Sep, [facility] [address] [id number] [address] [place] [address], [place] [address] Sep, [facility] [address] [id number] [address] [place] [address], [place] [address] Sep, [facility] [address] [id number] [address] [place] [address], [place] [address] Sep, [facility] [address] [id number] [address] [place] [address], [place] [address] 08 Sep, 2012 [facility] [address] [id number] [address] [place] [address], [place] [address] Sep, [facility] [address] [id number] [address] [place] [address], [place] [address] Sep, [facility] [address] [id number] [address] [place] [address], [place] [address] Aug, [facility] [address] [id number] [address] [place] [address], [place] [address] Aug, [facility] [address] [id number] [address] [place] [address], [place] [address] Aug, [facility] [address] [id number] [address] [place] [address], [place] [address] Aug, [facility] [address] [id number] [address] [place] [address], [place] [address] Aug, [facility] [address] [id number] [address] [place] [address], [place] [address] Aug, [facility] [address] [id number] [address] [place] [address], [place] [address] Aug, [facility] [address] [id number] [address] [place] [address], [place] [address] Aug, [facility] [address] [id number] [address] [place] [address], [place] [address] Jul, [facility] [address] [id number] [address] [place] [address], [place] [address] Jul, [facility] [address] [id number] [address] [place] [address], [place] [address] Jun, [facility] [address] [id number] [address] [place] [address], [place] [address] May, [facility] [address] [id number] [address] [place] [address], [place] [address] Apr, [facility] [address] [id number] [address] [place] [address], [place] [address] Apr, [facility] [address] [id number] [address] [place] [address], [place] [address] Apr, [facility] [address] [id number] [address] [place] [address], [place] [address] March, [facility] [address] [id number] [address] [place] [address], [place] [address] March, [facility] [address] [id number] [address] [place] [address], [place] [address] March, [facility] [address] [id number] [address] [place] [address], [place] [address] March, [facility] [address] [id number] [address] [place] [address], [place] [address] March, [facility] [address] [id number] [address] [place] [address], [place] [address] March, [facility] [address] [id number] [address] [place] [address], [place] [id number] March, [facility] [address] [id number] [address] [place] [address], [place] [id number] Jan, [facility] [address] [id number] [address] [place] [address], [place] [id number] Jan, [facility] [address] [id number] [address] [place] [address], [place] [id number] Jan, [facility] [address] [id number] [address] [place] [address], [place] [id number] Jan, [facility] [address] [id number] [address] [place] [address], [place] [id number] Jan, [facility] [address] [id number] [address] [place] [address], [place] [id number] Dec, [facility] [address] [id number] [address] [place] [address], [place] [id number] 06 Dec, 2011 [facility] [address] [id number] [address] [place] [address], [place] [id number] 18 Nov, 2011 [facility] [address] [id number] [address] [place] [address], [place] [id number] 10 Nov, 2011 [facility] [address] [id number] [address] [place] [address], [place] [id number] Nov, [facility] [address] [id number] [address] [place] [address], [place] [id number] 05 Nov, 2011 [facility] [address] [id number] [address] [place] [address], [place] [id number] Oct, [facility] [address] [id number] [address] [place] [address], [place] [id number] Oct, [facility] [address] [id number] [address] [place] [address], [place] [id number] 14 Sep, 2011 [facility] [address] [id number] [address] [place] [address], [place] [id number] Sep, [facility] [address] [id number] [address] [place] [address], [place] [id number] Sep, [facility] [address] [id number] [address] [place] [address], [place] [id number] May, [facility] [address] [id number] [address] [place] [address], [place] [id number] Nov, [facility] [address] [id number] [address] [place] [address], [place] [id number] 29 Oct, 2010 [facility] [address] [id number] [address] [place] [address], [place] [id number] 14 Oct, 2010 [facility] [address] [id number] [address] [place] [address], [place] [id number] 08 Oct, 2010 [facility] [address] [id number] [address] [place] [address], [place] [id number] 15 Sep, 2010 [facility] [address] [id number] [address] [place] [id number] Sep, [facility] [address] [id number] [address] [place] [id number] Aug, [facility] [address] [id number] [address] [place] [id number] March, [facility] [address] [id number] [address] [place] [id number] Oct, [facility] [address] [id number] [address] [place] [id number] Oct, [facility] [address] [id number] [address] [place] [id number] Oct, [facility] [address] [id number] [address] [place] [id number] Oct, [facility] [address] [id number] [address] [place] [id number] Sep, [facility] [address] [id number] [address] [place] [id number] Sep, [facility] [address] [id number] [address] [place] [phone] Sep, [facility] [address] [id number] [address] [place] [phone] Aug, [facility] [address] [id number] [address] [place] [id number] Aug, [facility] [address] [id number] [address] [place] [id number] Aug, [facility] [address] [id number] [address] [place] [id number] Jan, IMMUNIZATIONS No Known Immunizations SOCIAL HISTORY Never Assessed [place]AS[place] FOR [place] [place] VITAL SIGNS MEDICATIONS Unknown [...]
--- OUTSIDE RECORDS SUMMARY | 2020-06-13 16:15 | XMS REPORT ---
Author Author Jah Durant Doctor Organization [facility] Address Unknown Phone Unavailable Care Team Providers Care Museum Guide Name Role Phone Migration, Doctor Unavailable Unavailable PROBLEMS Type Condition ICD9-CM Code CJB96-CW Code Onset Dates Condition S tatus SNOMED Code Problem Hypothyroid E03.9 Active 10515095 Problem Neuropathy G62.9 Active 833747682 Problem Mixed hyperlipidemia E78.2 Active 649914646 Problem Overactive bladder N32.81 Active 2 32883926 Problem Irritable bowel syndrome with diarrhea K58.0 Active 500170357 Problem Gastroesophageal reflux disease with esophagitis K 21.0 Active 409810249 Problem Type 2 diabetes mellitus with hyperglycemia E11.65 Active 72341234 Problem [facility] current use of insulin Z79.4 Active 295362349 Problem Current non-adherence to medical treatment Z91.19 Active 3431038 Problem Recurrent major depressive disorder, in partial remission F33.41 Active 12432868 Problem Chronic fatigue R53.82 Active 8422 9001 Problem 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 Active 206644009 Problem Pulmonary emphysema, unspecified emphysema type J4 3.9 Active 08740513 Problem Thrombocytosis D47.3 Active 13866 09 Problem Acquired hypothyroidism E03.9 Active 519199734 Problem Essential (primary) hypertension I10 Active 81838014 Problem Chronic pain G89.29 Active 4780318 1 Problem Anxiety disorder, unspecified type F41.9 Active 609977970 Problem Major depressive disorder, recurrent episode, moderate F33.1 Active 624678926 Problem Hypertriglyceridemia E78.1 Active 032848048 Problem Gastroparesis K31.84 Active 726232 006 ALLERGIES No Information ENCOUNTERS Encounter Location Date Diagnosis [address] [id number] Feb, [facility] [address] [facility] [id number] [place] [address] Feb, Other chronic pain G89.29 an d Chronic pain G89.29 [facility] [address] [facility] [id number] [address] [place] [id number] 18 Jan, 2019 Mixed hyperlipidemia E78.2 [facility] [address] [facility] [id number] [address] [place] [address] 11 Jan, 2019 Chronic pain G89.29 [facility] [address] [facility] [id number] [address] [place] [id number] 08 Jan, 2019 Type 2 diabetes mellitus wit h hyperglycemia E11.65 ; Mixed hyperlipidemia E78.2 ; [facility] current use of insulin Z79.4 ; Acquired hypothyroidism E03.9 and Essential (primary) hypertension I10 [facility] [address] [facility] [id number] [address] [place] [phone] Dec, Chronic pain G89.29 [facility] [address] [facility] [id number] [address] [place] [id number] 14 Nov, 2018 Chronic pain G89.29 [facility] [address] [facility] [id number] [address] [place] [id number] Nov, [facility] [address] [facility] [id number] [address] [place] [address] Oct, Chronic pain G89.29 [facility] [address] [place] [id number] [address] [place] [phone] Oct, [facility] [address] [facility] [id number] [address] [place] [phone] Sep, [facility] [address] [facility] [id number] [address] [place] [address] Sep, Type 2 diabetes mellitus wit h hyperglycemia E11.65 [facility] [address] [facility] [id number] [address] [place] [id number] 16 Sep, 2018 Chronic pain G89.29 [facility] [address] [facility] [id number] [address] [place] [id number] Sep, [facility] [address] [place] [id number] [address] [place] [id number] Sep, Type 2 diabetes mellitus wit h hyperglycemia E11.65 ; Irritable bowel syndrome with diarrhea K58.0 ; Gastroparesis K31.84 ; 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 and Dermatitis L30.9 [place] [address] [facility] [id number] [address] [place] [id number] Aug, Chronic pain G89.29 [place] [address] [facility] [id number] [address] [place] [id number] Jul, Chronic pain G89.29 [place] [address] [place] [id number] [address] [place] [address] Jun, Type 2 diabetes mellitus wit h hyperglycemia E11.65 ; Neuropathy G62.9 ; Recurrent major depressive disorder, in partial remission F33.41 ; Chronic pain G89.29 and Hypertriglyceridemia E78.1 [place] [address] [place] [id number] [address] [place] [phone] Jun, Hypothyroid E03.9 [place] [address] [place] [id number] [address] [place] [id number] Jun, Major depressive disorder, r ecurrent episode, moderate F33.1 and Anxiety disorder, unspecified type F41.9 [place] [address] [place] [id number] [address] [place] [phone] Jun, [place] [id number] [place] [address] Jun, Type 2 diabetes mellitus wit h hyperglycemia E11.65 ; 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 ; Recurrent major depressive disorder, in partial remission F33.41 ; Hypothyroid E03.9 ; Candidal dermatitis B37.2 and Weakness generalized R53.1 [place] [address] [place] [id number] [address] [place] [phone] May, [place] [address] [place] [id number] [address] [place] [phone] May, [place] [address] [place] [id number] [address] [place] [phone] May, [facility] [address] [facility] [id number] [address] [place] [phone] May, Generalized abdominal pain R 10.84 and Candidal dermatitis B37.2 [place] [address] [facility] [id number] [address] [place] [phone] May, [place] [address] [place] [id number] [place] [phone] May, [place] [address] [facility] [id number] [place] [address] May, Nodular radiologic density R 93.8 ; Weight loss, unintentional R63.4 and Pulmonary emphysema, unspecified emphysema type J43.9 [place] [address] [place] [id number] [place] [phone] May, Chronic pain G89.29 [place] [address] [address] May, Syncope and collapse R55 ; C hronic fatigue R53.[address] lung screening R91.8 [place] [address] [place] [id number] [place] [phone] May, [place] [address] [place] [id number] [place] [address] Apr, Chronic fatigue R53.82 ; Abn ormal chest CT R93.8 ; Elevated erythrocyte sedimentation rate R70.0 ; Hypothyroid E03.9 and Recurrent major depressive disorder, in partial remission F33.41 [place] [address] [facility] [id number] [address] [place] [phone] Apr, Hypothyroid E03.9 [place] [address] [facility] [id number] [address] [place] [phone] Apr, Depression F32.9 [place] [address] [facility] [id number] [address] [place] [phone] Apr, [place] [address] [facility] [id number] [address] [place] [id number] March, [place] [address] [facility] [id number] [address] [place] [phone] March, Hypothyroid E03.9 [place] [address] [facility] [id number] [address] [place] [phone] March, Diabetes mellitus E11.9 and Hypothyroid E03.9 [place] [address] [facility] [id number] [address] [place] [phone] March, Diabetes mellitus E11.9 [place] [address] [facility] [id number] [address] [place] [address] March, Hypothyroid E03.9 and Elevat ed liver enzymes R74.8 [place] [address] [facility] [id number] [address] [place] [id number] March, Type 2 diabetes mellitus wit h hyperglycemia E11.65 ; 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 ; Pulmonary emphysema, unspecified emphysema type J43.9 ; Hypothyroid E03.9 ; Neuropathy G62.9 ; Mixed hyperlipidemia E78.2 ; Chronic pain G89.29 ; Gastroesophageal reflux disease with esophagitis K21.0 ; Irritable bowel syndrome with diarrhea K58.0 ; Overactive bladder N32.81 and Recurrent major depressive disorder, in partial remission F33.41 [place] [address] [facility] [id number] [address] [place] [id number] Feb, Chronic pain G89.29 [place] [address] [facility] [id number] [address] [place] [id number] Feb, Type 2 diabetes mellitus wit h hyperglycemia E11.65 and Skin lesion of scalp L98.9 [place] [address] [facility] [id number] [address] [place] [phone] Feb, [place] [address] [facility] [id number] [address] [place] [id number] Jan, Type 2 diabetes mellitus wit h [...] and Irritable bowel syndrome with diarrhea K58.0 [place] [address] [id number] [address] [place] [phone] Jan, [place] [address] [facility] [id number] [address] [place] [phone] Jan, Controlled substance agreeme nt signed Z79.899 [place] [address] [place] [id number] [address] [place] [address] Dec, Type 2 diabetes mellitus wit h [...] treatment Z91.19 and Overweight (BMI 25.0-29.9) E66.3 [place] [address] [place] [id number] [address] [place] [id number] Dec, Controlled substance agreeme nt signed Z79.899 [place] [address] [facility] [id number] [address] [place] [id number] Nov, Type 2 diabetes mellitus wit h hyperglycemia E11.65 and Current non- adherence to medical treatment Z91.19 [place] [address] [facility] [id number] [address] [place] [address] Nov, [place] [address] [facility] [id number] [address] [place] [address] Nov, Chronic pain G89.29 [place] [address] [id number] [address] [place] [phone] Nov, [facility] [address] [id number] [address] [place] [phone] Nov, Hypothyroid E03.9 [facility] [address] [id number] [address] [place] [phone] Nov, Hypothyroid E03.9 [facility] [address] [id number] [address] [place] [id number] Nov, Pulmonary emphysema, unspeci fied emphysema type J43.9 and Irritable bowel syndrome with diarrhea K58.0 [facility] [address] [id number] [address] [place] [phone] Oct, [facility] [address] [id number] [address] [place] [phone] Oct, [facility] [address] [facility] [id number] [address] [place] [phone] Oct, [facility] [address] [id number] [address] [place] [phone] Oct, [facility] [address] [facility] [id number] [address] [place] [address] Oct, Chronic pain G89.29 [facility] [address] [facility] [id number] [address] [place] [phone] Oct, Diabetes mellitus E11.9 ; De pression F32.9 ; Mixed hyperlipidemia E78.2 ; Hypotension, unspecified hypotension type I95.9 ; Pulmonary emphysema, unspecified emphysema type J43.9 and Weight loss, unintentional R63.4 [facility] [address] [facility] [id number] [address] [place] [id number] Oct, Chronic pain G89.29 [facility] [address] [facility] [id number] [address] [place] [phone] Sep, Chronic pain G89.29 [facility] [address] [facility] [id number] [address] [place] [address] Sep, Hypothyroid E03.9 and Diabet es mellitus E11.9 [place] [address] [place] [id number] [address] [place] [address] Aug, Type 2 diabetes mellitus wit h hyperglycemia E11.65 ; [facility] current use of insulin Z79.4 ; Essential (primary) hypertension I10 ; Hypothyroid E03.9 ; Neuropathy G62.9 ; Chronic pain G89.29 ; Mixed hy perlipidemia E78.2 and Encounter for immunization Z23 [facility] [address] [facility] [id number] [address] [place] [id number] Aug, Chronic pain G89.29 [place] [address] [place] [id number] [place] [address] Aug, Overactive bladder N32.81 ; Diabetes mellitus E11.9 and Chronic pain G89.29 [place] [address] [place] [id number] [address] [place] [id number] Jul, [place] [address] [place] [id number] [address] [place] [phone] Jun, [place] [address] [address] Jun, [place] [address] [place] [id number] [address] [place] [id number] Jun, Hypothyroid E03.9 [place] [address] [place] [id number] [address] [place] [id number] Jun, Diabetes mellitus E11.9 ; Hy pothyroid E03.9 ; Neuropathy G62.9 ; Chronic pain G89.29 and Neck mass R22.1 [place] [address] [place] [id number] [address] [place] [id number] Apr, [place] [address] [place] [id number] [address] [place] [address] Apr, Acute cystitis without hemat uria N30.00 [place] [address] [place] [id number] [address] [place] [id number] March, [facility] [address] [facility] [id number] [address] [place] [phone] March, [facility] [address] [place] [id number] [address] [place] [phone] March, Near syncope R55 [facility] [address] [place] [id number] [place] [address] Feb, [facility] [address] [place] [id number] [place] [address] Feb, Chronic pain G89.29 [facility] [address] [place] [id number] [place] [phone] Feb, [facility] [address] [place] [id number] [address] [place] [id number] Feb, [facility] [address] [place] [id number] [place] [address] Jan, Chronic pain G89.29 [facility] [address] [place] [id number] [address] [place] [id number] Jan, [facility] [address] [place] [id number] [address] [place] [id number] Jan, [facility] [address] [place] [id number] [address] [place] [id number] Jan, Diabetes mellitus E11.9 ; Hy pothyroid E03.9 ; GERD (gastroesophageal reflux disease) K21.9 ; Insomnia G47.00 ; Functional 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 ; Neuropathy G62.9 ; Depression F32.9 ; Chronic pain G89.29 ; Irritable bowel syndrome with diarrhea K58.0 ; Overactive bladder N32.81 ; Mixed hyperlipidemia E78.2 and Bronchitis J40 [facility] [address] [place] [id number] [address] [place] [id number] Dec, [facility] [address] [place] [id number] [address] [place] [phone] Dec, [facility] [address] [facility] [id number] [address] [place] [id number] Dec, [facility] [address] [facility] [id number] [address] [place] [phone] Dec, [facility] [address] [facility] [id number] [address] [place] [id number] Dec, Chronic pain G89.29 [facility] [address] [facility] [id number] [address] [place] [id number] Dec, [facility] [address] [facility] [id number] [address] [place] [id number] Dec, [facility] [address] [facility] [id number] [address] [place] [address] Dec, Type 2 diabetes mellitus wit h foot ulcer E11.621 [facility] [address] [place] [id number] [address] [place] [address] Dec, Type 2 diabetes mellitus wit h foot ulcer E11.621 [facility] [address] [place] [address] Dec, HTN (hypertension) I10 ; Dep ression F32.9 ; Type 2 diabetes mellitus with foot ulcer E11.621 ; Functional 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 ; Irritable bowel syndrome with diarrhea K58.0 ; Chronic pain G89.29 ; Insomnia G47.00 ; Overactive bladder N32.81 ; Mixed hyperlipidemia E78.2 ; Gastroesophageal reflux disease with esophagitis K21.0 and Acquired hypothyroidism E03.9 [facility] [address] [facility] [id number] [address] [place] [phone] Nov, [facility] [address] [place] [id number] [address] [place] [address] Oct, [facility] [id number] [place] [phone] Oct, [facility] [address] [place] [id number] [place] [address] Oct, [place] [address] [address] Sep, Functional 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 ; HTN (hypertension) I10 ; Diabetes mellitus E11.9 ; Depression F32.9 ; Overactive bladder N32.81 ; Mixed hyperlipidemia E78.2 ; Gastroesophageal reflux disease without esophagitis K21.9 ; Chronic pain G89.29 ; Insomnia G47.00 and Acquired hypothyroidism E03.9 [place] [address] [address] Sep, [place] [address] [address] Aug, Encounter for immunization Z 23 [place] [address] [address] Aug, [place] [address] [address] Jul, [place] [address] [address] Jun, Type 2 diabetes mellitus wit hout complications E11.9 ; HTN (hypertension) I10 ; Hypothyroid E03.9 ; Neuropathy G62.9 ; Depression F32.9 ; Chronic pain G89.29 ; GERD (gastroesophageal reflux disease) K21.9 ; Insomnia G47.00 ; Overactive bladder N32.81 ; Mixed hyperlipidemia E78.2 ; Diarrhea of infectious origin A09 and Environmental allergies Z91.09 [place] [address] [place] [id number] [address] [place] [address] Apr, [place] [address] [address] March, Hypothyroidism, unspecified E03.9 and Mixed hyperlipidemia E78.2 [place] [address] [address] March, Diabetes mellitus E11.9 ; HT N (hypertension) I10 ; Hypothyroid E03.9 ; Depression F32.9 ; Overactive bladder N32.81 ; Other chronic pain G89.29 ; Lumbago with sciatica, unspecified side M54.40 ; Environmental allergies Z91.09 and Gastroesophageal reflux disease, esophagitis presence not specified K21.9 [place] [address] [address] March, [place] [address] [address] Jan, HTN (hypertension) I10 ; Hyp othyroid E03.9 ; Neuropathy G62.9 ; Diabetes mellitus E11.9 ; Chronic pain G89.29 ; GERD (gastroesophageal reflux disease) K21.9 ; Overactive bladder N32.81 and Depression F32.9 [place] [address] [address] 12 Dec, 2015 Ear pain, left H92.02 ; HTN (hypertension) I10 ; Hypothyroid E03.9 ; Neuropathy G62.9 ; Diabetes mellitus E11.9 ; Depression F32.9 ; GERD (gastroesophageal reflux disease) K21.9 ; Insomnia G47.00 and Overactive bladder N32.81 [place] [address] [address] Nov, Overactive bladder N32.81 an d Chronic pain G89.29 [place] [address] [address] Nov, Kidney failure N19 [place] [address] [place] [id number] [address] [place] [phone] Nov, [place] [address] [address] Nov, [place] [address] [place] [id number] [place] [address] Nov, Diabetes mellitus E11.9 ; De pression F32.9 ; Chronic pain G89.29 ; GERD (gastroesophageal reflux disease) K21.9 ; Insomnia G47.00 ; HTN (hypertension) I10 ; Hypothyroid E03.9 ; COPD (chronic obstructive pulmonary disease) J44.9 ; Bladder incontinence R32 and Incontinence R32 [address] [address] Sep, Type 2 diabetes mellitus wit h foot ulcer E11.621 and Chromosomal abnormality, 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 [address] Sep, [address] [address] Aug, [address] [address] Aug, [address] [address] Aug, HTN (hypertension) I10 ; Enc ounter for immunization Z23 ; Hypothyroid E03.9 ; Neuropathy G62.9 ; Diabetes mellitus E11.9 ; Depression F32.9 ; Chronic pain G89.29 ; GERD (gastroesophageal reflux disease) K21.9 ; Insomnia G47.00 and COPD (chronic obstructive pulmonary disease) J44.[address] [address] Jun, [address] [address] Jun, [address] [address] May, Essential hypertension, ivis gn 401.1 ; Unspecified hypothyroidism 244.9 ; Insomnia, unspecified 780.52 ; Shortness of breath 786.05 ; Depression 311 ; COPD (chronic obstructive pulmonary disease) 496 ; GERD (gastroesophageal reflux disease) 530.81 and Diabetes 1.5, 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 [address] May, [address] [id number] [address] [place] [address] May, [facility] [address] [facility] [id number] [address] [place] [address] May, Shortness of breath 786.05 ; Essential hypertension, benign 401.1 ; Diabetes mellitus 250.00 ; Hyperlipidemia 272.4 ; Hypothyroid 244.9 ; Insomnia 780.52 and Cough 786.2 [facility] [address] [facility] [id number] [address] [place] [id number] Apr, [facility] [address] [facility] [id number] [address] [place] [id number] March, Shortness of breath 786.05 ; Nausea with vomiting 787.01 ; Essential hypertension, benign 401.1 ; Diabetes mellitus 250.00 ; Hyperlipidemia 272.4 and Hypothyroid 244.9 [facility] [address] [facility] [id number] [address] [place] [id number] Feb, [facility] [address] [facility] [id number] [address] [place] [phone] Feb, [facility] [address] [facility] [id number] [address] [place] [id number] Jan, [facility] [address] [facility] [id number] [address] [place] [id number] Jan, [facility] [address] [facility] [id number] [address] [place] [phone] Jan, [facility] [address] [facility] [id number] [address] [place] [phone] Jan, [facility] [address] [facility] [id number] [address] [place] [phone] Jan, [facility] [address] [place] [id number] [address] [place] [id number] Jan, [facility] [address] [facility] [id number] [address] [place] [phone] Jan, [facility] [address] [id number] [address] [place] [address], [place] [phone] Jan, [facility] [address] [id number] [address] [place] [address], [place] [id number] Jan, [facility] [address] [id number] [address] [place] [address], [place] [phone] Jan, [facility] [address] [id number] [address] [place] [address], [place] [phone] Dec, 2014 [facility] [address] [id number] [address] [place] [address], [place] [address] Dec, 2014 [facility] [address] [id number] [address] [place] [address], [place] [address] Dec, 2014 [facility] [address] [id number] [address] [place] [address], [place] [address] Dec, 2014 [facility] [address] [id number] [address] [place] [address], [place] [address] Dec, 2014 [facility] [address] [id number] [address] [place] [address], [place] [address] Dec, 2014 [facility] [address] [id number] [address] [place] [address], [place] [address] Dec, 2014 [facility] [address] [id number] [address] [place] [address] Dec, 2014 [facility] [address] [id number] [address] [place] [address] Dec, 2014 [facility] [address] [id number] [address] [place] [address], [place] [address] Dec, [facility] [address] [id number] [address] [place] [address] Oct, [facility] [address] [id number] [address] [place] [id number] Oct, [facility] [address] [id number] [address] [place] [address] Oct, [facility] [address] [id number] [address] [place] [address], [place] [address] Oct, [facility] [address] [id number] [address] [place] [address], [place] [address] Oct, [facility] [address] [id number] [address] [place] [address], [place] [address] Oct, [facility] [address] [id number] [address] [place] [address], [place] [address] Oct, [facility] [address] [id number] [address] [place] [address], [place] [address] Oct, [facility] [address] [id number] [address] [place] [address], [place] [address] Oct, [facility] [address] [id number] [address] [place] [address], [place] [address] Oct, [facility] [address] [id number] [address] [place] [address], [place] [address] Oct, [facility] [address] [id number] [address] [place] [address], [place] [address] Oct, [facility] [address] [id number] [address] [place] [address], [place] [address] Oct, [facility] [address] [id number] [address] [place] [address], [place] [address] Oct, [facility] [address] [id number] [address] [place] [address], [place] [address] Sep, [facility] [address] [id number] [address] [place] [address], [place] [address] Sep, [facility] [address] [id number] [address] [place] [address], [place] [address] Sep, [facility] [address] [id number] [address] [place] [address], [place] [address] Sep, [facility] [address] [id number] [address] [place] [address], [place] [address] 18 Sep, 2014 [facility] [address] [id number] [address] [place] [address], [place] [address] Sep, [facility] [address] [id number] [address] [place] [address], [place] [address] Sep, [facility] [address] [id number] [address] [place] [address], [place] [address] Sep, [facility] [address] [id number] [address] [place] [address], [place] [address] Sep, [facility] [address] [id number] [address] [place] [address], [place] [address] Aug, [facility] [address] [id number] [address] [place] [address], [place] [address] Aug, [facility] [address] [id number] [address] [place] [address], [place] [address] Aug, [facility] [address] [id number] [address] [place] [address], [place] [address] Aug, [facility] [address] [id number] [address] [place] [address], [place] [address] 16 Aug, 2014 [facility] [address] [id number] [address] [place] [address], [place] [address] Aug, [facility] [address] [id number] [address] [place] [address], [place] [address] Aug, [facility] [address] [id number] [address] [place] [address], [place] [address] Aug, [facility] [address] [id number] [address] [place] [address], [place] [address] Aug, [facility] [address] [id number] [address] [place] [address], [place] [address] 29 Jul, 2014 [facility] [address] [id number] [address] [place] [address], [place] [address] Jul, [facility] [address] [id number] [facility] [place] [address] Jul, [facility] [address] [id number] [facility] [place] [address] Jul, [facility] [address] [id number] [facility] [place] [address] Jul, [facility] [address] [id number] [address] [place] [address], [place] [address] Jul, [facility] [address] [id number] [address] [place] [address], [place] [address] Jul, [facility] [address] [id number] [address] [place] [address], [place] [address] Jul, [facility] [address] [id number] [address] [place] [address], [place] [address] Jul, [facility] [address] [id number] [address] [place] [address], [place] [address] Jul, [facility] [address] [id number] [address] [place] [address], [place] [address] Jun, [facility] [address] [id number] [address] [place] [address], [place] [address] Jun, [facility] [address] [id number] [address] [place] [address], [place] [address] Jun, [facility] [address] [id number] [address] [place] [address], [place] [address] Jun, [facility] [address] [id number] [address] [place] [address], [place] [address] Jun, [facility] [address] [id number] [address] [place] [address], [place] [address] Jun, [facility] [address] [id number] [address] [place] [address], [place] [address] Jun, [facility] [address] [id number] [facility] [place] [address] Jun, [facility] [address] [id number] [address] [place] [address], [place] [address] Jun, [facility] [address] [id number] [address] [place] [address], [place] [address] Jun, [facility] [address] [id number] [address] [place] [address], [place] [address] Jun, [facility] [address] [id number] [address] [place] [address], [place] [address] Jun, [facility] [address] [id number] [address] [place] [address], [place] [address] May, [facility] [address] [id number] [address] [place] [address], [place] [address] May, [facility] [address] [id number] [address] [place] [address], [place] [address] May, [facility] [address] [id number] [address] [place] [address], [place] [address] May, [facility] [address] [id number] [address] [place] [address], [place] [address] May, [facility] [address] [id number] [address] [place] [address], [place] [address] May, [facility] [address] [id number] [address] [place] [address], [place] [address] March, [facility] [address] [id number] [address] [place] [address], [place] [address] March, [facility] [address] [id number] [address] [place] [address], [place] [address] March, [facility] [address] [id number] [address] [place] [address], [place] [address] March, [facility] [address] [id number] [address] [place] [address], [place] [address] March, [facility] [address] [id number] [facility] [place] [address] March, [facility] [address] [id number] [facility] [place] [address] Feb, [facility] [address] [id number] [facility] [place] [address] Feb, [facility] [address] [id number] [address] [place] [address], [place] [address] Feb, [facility] [address] [id number] [address] [place] [address], [place] [address] Feb, [facility] [address] [id number] [address] [place] [address], [place] [address] Jan, [facility] [address] [id number] [address] [place] [address], [place] [address] Jan, [facility] [address] [id number] [address] [place] [address], [place] [address] Jan, [facility] [address] [id number] [address] [place] [address], [place] [address] Jan, [facility] [address] [id number] [address] [place] [address], [place] [address] Jan, [facility] [address] [id number] [address] [place] [address], [place] [address] Jan, [facility] [address] [id number] [address] [place] [address], [place] [address] Jan, [facility] [address] [id number] [address] [place] [address], [place] [address] Jan, [facility] [address] [id number] [address] [place] [address], [place] [address] Jan, [facility] [address] [id number] [address] [place] [address], [place] [address] Jan, [facility] [address] [id number] [address] [place] [address], [place] [address] Jan, [facility] [address] [id number] [address] [place] [address], [place] [address] Jan, [facility] [address] [id number] [address] [place] [address], [place] [address] Dec, [facility] [address] [id number] [address] [place] [address], [place] [address] Dec, [facility] [address] [id number] [address] [place] [address], [place] [address] Dec, [facility] [address] [id number] [address] [place] [address], [place] [address] Dec, [facility] [address] [id number] [address] [place] [address], [place] [address] Dec, [facility] [address] [id number] [address] [place] [address], [place] [address] Dec, [facility] [address] [id number] [address] [place] [address], [place] [address] Nov, [facility] [address] [id number] [address] [place] [address], [place] [address] Nov, [facility] [address] [id number] [address] [place] [address], [place] [address] Oct, [facility] [address] [id number] [address] [place] [address], [place] [address] Oct, [facility] [address] [id number] [address] [place] [address], [place] [address] Oct, [facility] [address] [id number] [address] [place] [address], [place] [address] Oct, [facility] [address] [id number] [address] [place] [address], [place] [address] Oct, [facility] [address] [id number] [address] [place] [address], [place] [address] Oct, [facility] [address] [id number] [address] [place] [address], [place] [address] Sep, [facility] [address] [id number] [address] [place] [address], [place] [address] Sep, [facility] [address] [id number] [address] [place] [address], [place] [address] Sep, [facility] [address] [id number] [address] [place] [address], [place] [address] Sep, [facility] [address] [id number] [address] [place] [address], [place] [address] Aug, [facility] [address] [id number] [address] [place] [address], [place] [address] Aug, [facility] [address] [id number] [address] [place] [address], [place] [address] Aug, [facility] [address] [id number] [address] [place] [address], [place] [address] 17 Jul, 2013 [facility] [address] [id number] [address] [place] [address], [place] [address] 14 Jul, 2013 [facility] [address] [id number] [address] [place] [address], [place] [address] 04 Jul, 2013 [facility] [address] [id number] [address] [place] [address], [place] [address] Jun, [facility] [address] [id number] [address] [place] [address], [place] [address] Jun, [facility] [address] [id number] [address] [place] [address], [place] [address] Jun, [facility] [address] [id number] [address] [place] [address], [place] [address] Apr, [facility] [address] [id number] [address] [place] [address], [place] [address] Apr, [facility] [address] [id number] [address] [place] [address], [place] [address] March, [facility] [address] [id number] [address] [place] [address], [place] [address] March, [facility] [address] [id number] [address] [place] [address], [place] [address] March, [facility] [address] [id number] [address] [place] [address], [place] [address] March, [facility] [address] [id number] [address] [place] [address], [place] [address] Feb, [facility] [address] [id number] [address] [place] [address], [place] [address] Jan, [facility] [address] [id number] [address] [place] [address], [place] [address] Dec, [facility] [address] [id number] [address] [place] [address], [place] [address] 08 Dec, 2012 [facility] [address] [id number] [address] [place] [address], [place] [address] Dec, [facility] [address] [id number] [address] [place] [address], [place] [address] Nov, [facility] [address] [id number] [address] [place] [address], [place] [address] Oct, [facility] [address] [id number] [address] [place] [address], [place] [address] Oct, [facility] [address] [id number] [address] [place] [address], [place] [address] Sep, [facility] [address] [id number] [address] [place] [address], [place] [address] Sep, [facility] [address] [id number] [address] [place] [address], [place] [address] Sep, [facility] [address] [id number] [address] [place] [address], [place] [address] Sep, [facility] [address] [id number] [address] [place] [address], [place] [address] 08 Sep, 2012 [facility] [address] [id number] [address] [place] [address], [place] [address] Sep, [facility] [address] [id number] [address] [place] [address], [place] [address] Sep, [facility] [address] [id number] [address] [place] [address], [place] [address] Aug, [facility] [address] [id number] [address] [place] [address], [place] [address] Aug, [facility] [address] [id number] [address] [place] [address], [place] [address] Aug, [facility] [address] [id number] [address] [place] [address], [place] [address] Aug, [facility] [address] [id number] [address] [place] [address], [place] [address] Aug, [facility] [address] [id number] [address] [place] [address], [place] [address] Aug, [facility] [address] [id number] [address] [place] [address], [place] [address] Aug, [facility] [address] [id number] [address] [place] [address], [place] [address] Aug, [facility] [address] [id number] [address] [place] [address], [place] [address] Jul, [facility] [address] [id number] [address] [place] [address], [place] [address] Jul, [facility] [address] [id number] [address] [place] [address], [place] [address] Jun, [facility] [address] [id number] [address] [place] [address], [place] [address] May, [facility] [address] [id number] [address] [place] [address], [place] [address] Apr, [facility] [address] [id number] [address] [place] [address], [place] [address] Apr, [facility] [address] [id number] [address] [place] [address], [place] [address] Apr, [facility] [address] [id number] [address] [place] [address], [place] [address] March, [facility] [address] [id number] [address] [place] [address], [place] [address] March, [facility] [address] [id number] [address] [place] [address], [place] [address] March, [facility] [address] [id number] [address] [place] [address], [place] [address] March, [facility] [address] [id number] [address] [place] [address], [place] [address] March, [facility] [address] [id number] [address] [place] [address], [place] [address] March, [facility] [address] [id number] [address] [place] [address], [place] [address] March, [facility] [address] [id number] [address] [place] [address], [place] [address] Jan, [facility] [address] [id number] [address] [place] [address], [place] [address] Jan, [facility] [address] [id number] [address] [place] [address], [place] [address] Jan, [facility] [address] [id number] [address] [place] [address], [place] [address] Jan, [facility] [address] [id number] [address] [place] [address], [place] [address] Jan, [facility] [address] [id number] [address] [place] [address], [place] [address] Dec, [facility] [address] [id number] [address] [place] [address], [place] [address] 06 Dec, 2011 [facility] [address] [id number] [address] [place] [address], [place] [address] 18 Nov, 2011 [facility] [address] [id number] [address] [place] [address], [place] [address] 10 Nov, 2011 [facility] [address] [id number] [address] [place] [address], [place] [address] Nov, [facility] [address] [id number] [address] [place] [address], [place] [id number] 05 Nov, 2011 [facility] [address] [id number] [address] [place] [address], [place] [address] Oct, [facility] [address] [id number] [address] [place] [address], [place] [address] Oct, [facility] [address] [id number] [address] [place] [address], [place] [address] 14 Sep, 2011 [facility] [address] [id number] [address] [place] [address], [place] [address] Sep, [facility] [address] [id number] [address] [place] [address], [place] [address] Sep, [facility] [address] [id number] [address] [place] [address], [place] [address] May, [facility] [address] [id number] [address] [place] [address], [place] [address] Nov, [facility] [address] [id number] [address] [place] [address], [place] [address] 29 Oct, 2010 [facility] [address] [id number] [address] [place] [address], [place] [address] 14 Oct, 2010 [facility] [address] [id number] [address] [place] [address], [place] [address] 08 Oct, 2010 [facility] [address] [id number] [address] [place] [address], [place] [address] 15 Sep, 2010 [facility] [address] [id number] [address] [place] [id number] Sep, [facility] [address] [id number] [address] [place] [phone] Aug, [facility] [address] [id number] [address] [place] [phone] March, [facility] [address] [id number] [address] [place] [phone] Oct, [facility] [address] [id number] [address] [place] [phone] Oct, [facility] [address] [id number] [address] [place] [phone] Oct, [facility] [address] [id number] [address] [place] [phone] Oct, [facility] [address] [id number] [address] [place] [id number] Sep, [facility] [address] [id number] [address] [place] [phone] Sep, [facility] [address] [id number] [address] [place] [id number] Sep, [facility] [address] [id number] [address] [place] [phone] Aug, [facility] [address] [id number] [address] [place] [phone] Aug, [facility] [address] [id number] [address] [place] [phone] Aug, [facility] [address] [id number] [address] [place] [id number] Jan, IMMUNIZATIONS No Known Immunizations SOCIAL HISTORY Never Assessed REASON FOR VISIT EMR-[facility] PLAN OF CARE VITAL SIGNS MEDICATIONS Unknown [...]
--- NOTE | 2020-06-13 16:16 | ED GI ---
General Chief Complaint: Abdominal/GI Problems Stated Complaint: N,V Source of Information: Patient Exam Limitations: No Limitations History of Present Illness Date Seen by Provider: Jun 13, 2020 Time Seen by Provider: 16:14 Initial Comments Patient comes in because he "can't keep anything down" patient reports been gone for 2-3 days. He denies abdominal pain. He denies any fevers chills. He has a chronic smoker's cough but no increased cough. He has no diarrhea. He reports normal bowel movement this morning. No other systemic complaints Allergies and Home Medications Allergies Coded Allergies: choline fenofibrate (Verified Allergy, Unknown, 12/07/17) gemfibrozil (Verified Allergy, Unknown, 12/07/17) niacin (Verified Allergy, Unknown, 12/07/17) pioglitazone (Verified Allergy, Unknown, 12/07/17) Home Medications Colesevelam HCl 625 Mg Tablet, 625 MG PO EVERY OTHER DAY, (Reported) Dicyclomine HCl 20 Mg Tablet, 20 MG PO DAILY, (Reported) Docusate Sodium 100 Mg Capsule, 100 MG PO BID Prescribed by: KATTY PACK on 12/13/17 1100 Hydrocodone Bit/Acetaminophen 1 Tab Tab, 1 TAB PO Q4H PRN Prescribed by: KATTY PACK on 12/13/17 1100 Insulin Determir 1,000 Units/10 Ml Soln, 100 UNITS SQ BID, (Reported) Levothyroxine Sodium 75 Mcg Tablet, 75 MCG PO DAILY, (Reported) Liraglutide 0.6 Mg/0.1 Ml Pen.injctr, 1.8 MG SQ DAILY, (Reported) Metformin HCl 500 Mg Tablet, 500 MG PO BID, (Reported) Nitrofurantoin Macrocrystal 100 Mg Capsule, 100 MG PO BID Prescribed by: ILAN OLSON on 06/13/201753 Omeprazole 20 Mg Capsule.dr, 20 MG PO BID, (Reported) Ondansetron 4 Mg Tab.rapdis, 4 MG PO Q6H PRN for NAUSEA/VOMITING Prescribed by: ILAN OLSON on 06/13/201751 Tramadol HCl 50 Mg Tablet, 50 MG PO PRN PRN for PAIN-MILD TO MODERATE, (Reported) Venlafaxine HCl 75 Mg Tab, 75 MG PO DAILY, (Reported) Patient Home Medication List Home Medication List Reviewed: Yes Review of Systems Review of Systems Constitutional: No chills, No fever Respiratory: Denies Cough, Denies Shortness of Air Cardiovascular: Denies Chest Pain Gastrointestinal: Denies Abdominal Pain, Denies Constipated, Denies Diarrhea; Nausea, Vomiting Genitourinary: No Symptoms Reported Musculoskeletal: no symptoms reported Skin: no symptoms reported Endocrine: No Symptoms Reported Hematologic/Lymphatic: No Symptoms Reported Past [id number]-Nauebv Hx Past Med/Social Hx: Reviewed Nursing Past Med/Soc Hx Patient Social History Former Smoker, Quit: Dec 07, 1992 Recent Foreign Travel: No Contact w/Someone Who Travel: No Recent Hopitalizations: No Immunizations Up To Date Tetanus Booster (TDap): More than 5yrs PED Vaccines UTD: No Date of Pneumonia Vaccine: Aug 21, 2016 Date of Influenza Vaccine: Aug 27, 2017 Seasonal Allergies Seasonal Allergies: Yes Past Medical History Surgeries: Yes (hemmorhoids removed, CATARACTS) Eye Surgery, Gallbladder, Orthopedic Respiratory: Yes Pneumonia, Sleep Apnea, COPD Currently Using CPAP: No Cardiac: Yes High Cholesterol Neurological: No Neuropathy, Parkinson's Disease Reproductive Disorders: No Sexually Transmitted Disease: No HIV/AIDS: No Gastrointestinal: Yes Gastroesophageal Reflux, Chronic Constipation, Hemorrhoids, Chronic Diarrhea, Irritable Bowel Musculoskeletal: Yes Arthritis, Chronic Back Pain, Fractures Endocrine: Yes (Type II) Diabetes, 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 Hearing Impairment: Denies Cancer: No Psychosocial: No Anxiety, Depression Integumentary: No Blood Disorders: No Adverse Reaction/Blood Tranf: No (N/A) Family Medical History Alcoholism G8 BROTHER G8 BROTHER Alzheimer's disease 19 MOTHER Arthritis 19 FATHER 19 MOTHER Asthma 19 FATHER Cataracts 19 FATHER 19 MOTHER G8 BROTHER G8 BROTHER G8 SISTER G8 SISTER G8 SISTER Completed stroke 19 FATHER G8 SISTER Deafness or hearing loss G8 BROTHER Diabetes mellitus 19 FATHER 19 MOTHER G8 BROTHER G8 BROTHER G8 BROTHER G8 SISTER G8 SISTER G8 SISTER Hypertension 19 FATHER 19 MOTHER G8 BROTHER G8 BROTHER G8 BROTHER G8 BROTHER G8 SISTER G8 SISTER G8 SISTER G8 SISTER G8 SISTER G8 SISTER G8 SISTER Respiratory disorder G8 BROTHER No Family History of: AIDS Abdominal aortic aneurysm [place]'s disease Aphasia Cancer of mouth Cardiovascular disease Colon cancer Congenital disease Congenital heart disease Coronary thrombosis Cystic fibrosis Dementia Drug abuse Dysphasia Fibrocystic disease of breast Gastroenteritis Glaucoma Headache disorder Hypercholesterolemia Infertility Kidney disease Myocardial infarction Neoplasm Not obtainable due to adoption Osteoporosis Parkinson's disease Prostate cancer Psychosocial problem Seizure disorder Severe allergy Thyroid disease Tuberculosis Visual disorder Hypertension Physical Exam Vital Signs Vital Signs - First Documented 06/13/20 16:09 Temp 37.4 Pulse 100 Resp 18 B/P (MAP) 146/90 (108) Pulse Ox 96 Capillary Refill : Height/Weight/BMI Height: 5'10.00" Weight: 161lbs. 4.0oz. [id number]; 23.1 BMI Method:Stated General Appearance: WD/WN, no apparent distress Respiratory: chest non-tender, lungs clear Cardiovascular: normal peripheral pulses, regular rate, rhythm Gastrointestinal: non tender, soft Extremities: normal range of motion, non-tender Back: no CVA tenderness, no vertebral tenderness Neurologic/Psychiatric: alert, normal mood/affect, oriented x 3 Skin: normal color, warm/dry Lymphatic: no adenopathy Progress/Results/Core Measures Results/Orders Lab Results Laboratory Tests Test 06/13/20 16:21 06/13/20 17:29 Range/Units White Blood Count 14.5 H 4.3-11.0 10^3/uL Red Blood Count 3.95 L 4.35-5.85 10^6/uL Hemoglobin 11.6 L 13.3-17.7 G/DL Hematocrit 35 L 40-54 % Mean Corpuscular Volume 87 80-99 FL Mean Corpuscular Hemoglobin 29 25-34 PG Mean Corpuscular Hemoglobin Concent 34 32-36 G/DL Red Cell Distribution Width 13.3 10.0-14.5 % Platelet Count 336 130-400 10^3/uL Mean Platelet Volume 10.3 7.4-10.4 FL Neutrophils (%) (Auto) 85 H 42-75 % Lymphocytes (%) (Auto) 6 L 12-44 % Monocytes (%) (Auto) 8 0-12 % Eosinophils (%) (Auto) 0 0-10 % Basophils (%) (Auto) 0 0-10 % Neutrophils # (Auto) 12.3 H 1.8-7.8 X 10^3 Lymphocytes # (Auto) 0.9 L 1.0-4.0 X 10^3 Monocytes # (Auto) 1.2 H 0.0-1.0 X 10^3 Eosinophils # (Auto) 0.0 0.0-0.3 10^3/uL Basophils # (Auto) 0.0 0.0-0.1 10^3/uL Neutrophils % (Manual) 90 % Lymphocytes % (Manual) 7 % Monocytes % (Manual) 3 % Eosinophils % (Manual) 0 % Basophils % (Manual) 0 % Band Neutrophils 0 % Blood Morphology Comment NORMAL Sodium Level 131 L 135-145 MMOL/L Potassium Level 4.5 3.6-5.0 MMOL/L Chloride Level 98 98-107 MMOL/L Carbon Dioxide Level 20 L 21-32 MMOL/L Anion Gap 13 5-14 MMOL/L Blood Urea Nitrogen 26 H 7-18 MG/DL Creatinine 1.22 0.60-1.30 MG/DL Estimat Glomerular Filtration Rate 59 BUN/Creatinine Ratio 21 Glucose Level 173 H 70-105 MG/DL Calcium Level 9.6 8.5-10.1 MG/DL Corrected Calcium 9.8 8.5-10.1 MG/DL Total Bilirubin 0.5 0.1-1.0 MG/DL Aspartate Amino Transf (AST/SGOT) 19 5-34 U/L Alanine Aminotransferase (ALT/SGPT) 27 0-55 U/L Alkaline Phosphatase 169 H 40-136 U/L Total Protein 7.8 6.4-8.2 GM/DL Albumin 3.8 3.2-4.5 GM/DL Lipase 6 L 8-78 U/L Urine Color YELLOW Urine Clarity CLOUDY Urine pH 5.5 5-9 Urine Specific Randall >=1.030 1.016-1.022 Urine Protein 2+ H NEGATIVE Urine Glucose (UA) NEGATIVE NEGATIVE Urine Ketones NEGATIVE NEGATIVE Urine Nitrite NEGATIVE NEGATIVE Urine Bilirubin NEGATIVE NEGATIVE Urine Urobilinogen 0.2 < = 1.0 MG/DL Urine Leukocyte Esterase 2+ H NEGATIVE Urine RBC (Auto) 2+ H NEGATIVE Urine RBC RARE /HPF Urine WBC TNTC H /HPF Urine Squamous Epithelial Cells NONE /HPF Urine Crystals NONE /LPF Urine Bacteria LARGE H /HPF Urine Casts NONE /LPF Urine Mucus NEGATIVE /LPF Urine Culture Indicated YES My Orders Orders - ILAN OLSON DO Comprehensive Metabolic Panel (06/13/20 16:23) Lipase (06/13/20 16:23) Ua Culture If Indicated (06/13/20 16:23) Ed Iv/Invasive Line Start (06/13/20 16:23) Acute Abd Series (06/13/20 16:23) Cbc With Automated Diff (06/13/20 16:23) Ondansetron Injection (Zofran Injectio (06/13/20 16:30) Ns Iv 1000 Ml (Sodium Chloride 0.9%) (06/13/20 16:23) Famotidine Injection (Pepcid Injection) (06/13/20 16:23) Manual Differential (06/13/20 16:21) Acetaminophen Tablet (Tylenol Tablet) (06/13/20 17:28) Urine Culture (06/13/20 17:29) Medications Given in ED Current Medications Medications Dose Ordered Sig/Jing Route Start Time Stop Time Status Last Admin Dose Admin Ondansetron HCl 4 mg ONCE ONCE IVP 06/13/20 16:30 06/13/20 16:31 DC 06/13/20 16:54 4 MG Vital Signs/I&O 06/13/20 16:09 Temp 37.4 Pulse 100 Resp 18 B/P (MAP) 146/90 (108) Pulse Ox 96 Progress Progress Note : Time: 17:49 Progress Note Patient's symptoms improved with IV fluids, Zofran and Protonix. Patient does show some signs of some mild dehydration. I will discharge him with a prescription for Zofran. He should follow-up with her primary care provider in 2-3 days if his symptoms are not improving. Patient is discharged in stable Departure Impression Primary Impression: Nausea and vomiting Qualified Codes: R11.2 - Nausea with vomiting, unspecified Additional Impressions: Mild dehydration Cystitis Disposition: 01 HOME, SELF-CARE Condition: Stable Departure-Patient Inst. Referrals: LAURA BOBBY DO (PCP) Primary Care Physician PATRICIA PARKER APRN (Family) Primary Care Physician Patient Instructions: Dehydration, Adult (DC), Nausea and Vomiting, Adult (DC), Urinary Tract Infection, Adult (DC) Add. Discharge Instructions: Follow-up with your primary care provider in 2-3 days for recheck of today symptoms All discharge instructions reviewed with patient and/or family. Voiced understanding. Scripts Nitrofurantoin Macrocrystal (Nitrofurantoin) 100 Mg Capsule 100 MG PO BID, #14 CAP 0 Refills Prov: ILAN OLSON DO 06/13/20 Ondansetron (Ondansetron Odt) 4 Mg Tab.rapdis 4 MG PO Q6H PRN for NAUSEA/VOMITING, #20 TAB 0 Refills Prov: ILAN OLSON DO 06/13/20 ILAN OLSON DO Jun 13, 2020 16:15
--- OUTSIDE RECORDS SUMMARY | 2020-06-13 16:16 | XMS REPORT ---
Author Author Jah Durant Doctor Organization [facility] Address Unknown Phone Unavailable Care Team Providers Care Deck Specialist Name Role Phone Migration, Doctor Unavailable Unavailable PROBLEMS Type Condition ICD9-CM Code XOK95-TD Code Onset Dates Condition S tatus SNOMED Code Problem Hypothyroid E03.9 Active 45071952 Problem Neuropathy G62.9 Active 064130877 Problem Mixed hyperlipidemia E78.2 Active 565697678 Problem Overactive bladder N32.81 Active 2 69606699 Problem Irritable bowel syndrome with diarrhea K58.0 Active 936267296 Problem Gastroesophageal reflux disease with esophagitis K 21.0 Active 637393109 Problem Type 2 diabetes mellitus with hyperglycemia E11.65 Active 53509295 Problem shelter current use of insulin Z79.4 Active 477764573 Problem Current non-adherence to medical treatment Z91.19 Active 6570670 Problem Recurrent major depressive disorder, in partial remission F33.41 Active 94578268 Problem Chronic fatigue R53.82 Active 8422 9001 Problem 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 Active 985605437 Problem Pulmonary emphysema, unspecified emphysema type J4 3.9 Active 58261990 Problem Thrombocytosis D47.3 Active 71580 09 Problem Acquired hypothyroidism E03.9 Active 103519736 Problem Essential (primary) hypertension I10 Active 75479201 Problem Chronic pain G89.29 Active 9133118 1 Problem Anxiety disorder, unspecified type F41.9 Active 636551758 Problem Major depressive disorder, recurrent episode, moderate F33.1 Active 606276976 Problem Hypertriglyceridemia E78.1 Active 001922878 Problem Gastroparesis K31.84 Active 328903 006 ALLERGIES No Information ENCOUNTERS Encounter Location Date Diagnosis [facility] [address] [facility] [id number] [address] [place] [id number] 18 Jan, 2019 Mixed hyperlipidemia E78.2 [facility] [address] [facility] [id number] [address] [place] [id number] 11 Jan, 2019 Chronic pain G89.29 [facility] [address] 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 ; Acquired hypothyroidism E03.9 and Essential (primary) hypertension I10 [facility] [address] [place] [id number] [address] [place] [address] Dec, Chronic pain G89.29 [facility] [address] [place] [id number] [address] [place] [id number] 14 Nov, 2018 Chronic pain G89.29 [place] [address] [address] Nov, [facility] [address] [place] [id number] [address] [place] [id number] Oct, Chronic pain G89.29 [place] [id number] [place] [id number] Oct, [place] [address] [place] [id number] [address] [place] [id number] Sep, [place] [address] [address] Sep, Type 2 diabetes mellitus wit h hyperglycemia E11.65 [place] [address] [place] [id number] [address] [place] [phone] Sep, Chronic pain G89.29 [facility] [address] [place] [id number] [address] [place] [id number] Sep, [place] [address] [address] Sep, Type 2 diabetes mellitus wit h hyperglycemia E11.65 ; Irritable bowel syndrome with diarrhea K58.0 ; Gastroparesis K31.84 ; 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 [id number] [address] [place] [id number] Jul, Chronic pain G89.29 [facility] [address] [facility] [id number] [address] [place] [address] Jun, Type 2 diabetes mellitus wit h hyperglycemia E11.65 ; Neuropathy G62.9 ; Recurrent major depressive disorder, in partial remission F33.41 ; Chronic pain G89.29 and Hypertriglyceridemia E78.1 [facility] [address] [facility] [id number] [address] [place] [id number] 17 Jun, 2018 Hypothyroid E03.9 [place] [address] [facility] [id number] [address] [place] [id number] 16 Jun, 2018 Major depressive disorder, r ecurrent episode, moderate F33.1 and Anxiety disorder, unspecified type F41.9 [place] [address] [facility] [id number] [address] [place] [id number] Jun, [place] [address] [facility] [id number] [address] [place] [id number] Jun, Type 2 diabetes mellitus wit h hyperglycemia E11.65 ; shelter current use of insulin Z79.4 ; Recurrent major depressive disorder, in partial remission F33.41 ; Hypothyroid E03.9 ; Candidal dermatitis B37.2 and Weakness generalized R53.1 [place] [address] [facility] [id number] [address] [place] [id number] May, [place] [address] [facility] [id number] [address] [place] [id number] May, [place] [address] [facility] [id number] [address] [place] [id number] May, [place] [address] [facility] [id number] [address] [place] [id number] May, Generalized abdominal pain R 10.84 and Candidal dermatitis B37.2 [place] [address] [facility] [id number] [address] [place] [id number] May, [facility] [address] [id number] [address] [place] [id number] May, [facility] [address] [facility] [id number] [address] [place] [id number] May, Nodular radiologic density R 93.8 ; Weight loss, unintentional R63.4 and Pulmonary emphysema, unspecified emphysema type J43.9 [facility] [address] [facility] [id number] [address] [place] [id number] May, Chronic pain G89.29 [place] [address] [facility] [id number] [address] [place] [id number] May, Syncope and collapse R55 ; C hronic fatigue R53.[address] lung screening R91.8 [place] [address] [place] [id number] [address] [place] [id number] May, [place] [address] [place] [id number] [address] [place] [id number] Apr, Chronic fatigue R53.82 ; Abn ormal chest CT R93.8 ; Elevated erythrocyte sedimentation rate R70.0 ; Hypothyroid E03.9 and Recurrent major depressive disorder, in partial remission F33.41 [place] [address] [facility] [id number] [address] [place] [id number] Apr, Hypothyroid E03.9 [place] [address] [facility] [id number] [address] [place] [id number] Apr, Depression F32.9 [place] [address] [facility] [id number] [address] [place] [id number] Apr, [place] [address] [facility] [id number] [address] [place] [id number] March, [place] [address] [place] [id number] [address] [place] [id number] March, Hypothyroid E03.9 [place] [address] [facility] [id number] [address] [place] [phone] March, Diabetes mellitus E11.9 and Hypothyroid E03.9 [place] [address] [place] [id number] [address] [place] [id number] March, Diabetes mellitus E11.9 [place] [address] [place] [id number] [address] [place] [phone] March, Hypothyroid E03.9 and Elevat ed liver enzymes R74.8 [place] [address] 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 ; Pulmonary emphysema, unspecified emphysema type J43.9 ; Hypothyroid E03.9 ; Neuropathy G62.9 ; Mixed hyperlipidemia E78.2 ; Chronic pain G89.29 ; Gastroesophageal reflux disease with esophagitis K21.0 ; Irritable bowel syndrome with diarrhea K58.0 ; Overactive bladder N32.81 and Recurrent major depressive disorder, in partial remission F33.41 [place] [id number] [place] [id number] Feb, Chronic pain G89.29 [place] [address] [place] [id number] [address] [place] [id number] Feb, Type 2 diabetes mellitus wit h hyperglycemia E11.65 and Skin lesion of scalp L98.9 [place] [address] [place] [id number] [address] [place] [phone] Feb, [place] [address] [place] [id number] [address] [place] [id number] Jan, Type 2 diabetes mellitus wit h hyperglycemia E11.65 ; 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 [id number] [address] [place] [phone] Jan, Controlled substance agreeme nt signed Z79.899 [place] [address] [facility] [id number] [address] [place] [id number] 08 Dec, 2017 Type 2 diabetes mellitus [...] treatment Z91.19 and Overweight (BMI 25.0-29.9) E66.3 [place] [address] [facility] [id number] [address] [place] [id number] 02 Dec, 2017 Controlled substance agreeme nt signed Z79.899 [place] [address] [facility] [id number] [address] [place] [id number] Nov, Type 2 diabetes mellitus wit h hyperglycemia E11.65 and Current non- adherence to medical treatment Z91.19 [place] [address] [facility] [id number] [address] [place] [id number] Nov, [place] [address] [facility] [id number] [address] [place] [id number] Nov, Chronic pain G89.29 [place] [address] [facility] [id number] [address] [place] [id number] Nov, [place] [address] [facility] [id number] [address] [place] [phone] Nov, Hypothyroid E03.9 [place] [address] [facility] [id number] [address] [place] [id number] Nov, Hypothyroid E03.9 [place] [address] [facility] [id number] [address] [place] [id number] Nov, Pulmonary emphysema, unspeci fied emphysema type J43.9 and Irritable bowel syndrome with diarrhea K58.0 [facility] [address] [facility] [id number] [address] [place] [id number] Oct, [facility] [address] [facility] [id number] [address] [place] [id number] Oct, [facility] [address] [facility] [id number] [place] [phone] Oct, [facility] [address] [place] [id number] [address] [place] [phone] Oct, [place] [address] [id number] Oct, Chronic pain G89.29 [place] [address] [facility] [id number] [address] [place] [id number] Oct, Diabetes mellitus E11.9 ; De pression F32.9 ; Mixed hyperlipidemia E78.2 ; Hypotension, unspecified hypotension type I95.9 ; Pulmonary emphysema, unspecified emphysema type J43.9 and Weight loss, unintentional R63.4 [place] [address] [facility] [id number] [address] [place] [id number] Oct, Chronic pain G89.29 [place] [address] [facility] [id number] [address] [place] [address] Sep, Chronic pain G89.29 [place] [address] [id number] Sep, Hypothyroid E03.9 and Diabet es mellitus E11.9 [place] [address] 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 [id number] [address] [place] [id number] Jul, [facility] [address] [place] [id number] [place] [address] Jun, [facility] [address] [place] [id number] [place] [phone] Jun, [facility] [address] [place] [id number] [address] [place] [id number] Jun, Hypothyroid E03.9 [facility] [address] [place] [id number] [place] [address] Jun, Diabetes mellitus E11.9 ; Hy pothyroid E03.9 ; Neuropathy G62.9 ; Chronic pain G89.29 and Neck mass R22.1 [facility] [address] [place] [id number] [address] [place] [id number] Apr, [facility] [address] [place] [id number] [address] [place] [id number] Apr, Acute cystitis without hemat uria N30.00 [facility] [address] [place] [id number] [address] [place] [id number] March, [facility] [address] [place] [id number] [address] [place] [id number] March, [facility] [address] [place] [id number] [place] [phone] March, Near syncope R55 [facility] [address] [facility] [id number] [address] [place] [id number] Feb, [facility] [address] [facility] [id number] [address] [place] [id number] Feb, Chronic pain G89.29 [facility] [address] [facility] [id number] [address] [place] [phone] Feb, [facility] [address] [place] [id number] [address] [place] [phone] Feb, [facility] [address] [place] [id number] [address] [place] [id number] Jan, Chronic pain G89.29 [facility] [address] [facility] [id number] [address] [place] [id number] Jan, [facility] [address] [place] [id number] [address] [place] [id number] Jan, [facility] [address] [place] [id number] [address] [place] [id number] Jan, Diabetes mellitus E11.9 ; Hy pothyroid E03.9 ; GERD (gastroesophageal reflux disease) K21.9 ; Insomnia G47.00 ; Functional 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 ; Neuropathy G62.9 ; Depression F32.9 ; Chronic pain G89.29 ; Irritable bowel syndrome with diarrhea K58.0 ; Overactive bladder N32.81 ; Mixed hyperlipidemia E78.2 and Bronchitis J40 [facility] [address] [facility] [id number] [address] [place] [id number] Dec, [facility] [address] [place] [id number] [address] [place] [id number] Dec, [facility] [address] [place] [id number] [address] [place] [id number] Dec, [facility] [address] [place] [id number] [address] [place] [phone] Dec, [facility] [id number] [place] [address] Dec, Chronic pain G89.29 [facility] [address] [facility] [id number] [address] [place] [id number] Dec, [facility] [address] [place] [id number] [address] [place] [phone] Dec, [facility] [address] [address] Dec, Type 2 diabetes mellitus wit h foot ulcer E11.621 [facility] [address] [address] Dec, Type 2 diabetes mellitus wit h foot ulcer E11.621 [facility] [address] [place] [id number] [address] [place] [id number] Dec, HTN (hypertension) I10 ; Dep ression F32.9 ; Type 2 diabetes mellitus with foot ulcer E11.621 ; Functional 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 ; Irritable bowel syndrome with diarrhea K58.0 ; Chronic pain G89.29 ; Insomnia G47.00 ; Overactive bladder N32.81 ; Mixed hyperlipidemia E78.2 ; Gastroesophageal reflux disease with esophagitis K21.0 and Acquired hypothyroidism E03.9 [facility] [address] [place] [id number] [address] [place] [id number] Nov, [facility] [id number] [place] [phone] Oct, [facility] [address] [place] [id number] [address] [place] [phone] Oct, [facility] [address] [address] Oct, [facility] [address] [place] [id number] [address] [place] [id number] Sep, Functional 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 ; HTN (hypertension) I10 ; Diabetes mellitus E11.9 ; Depression F32.9 ; Overactive bladder N32.81 ; Mixed hyperlipidemia E78.2 ; Gastroesophageal reflux disease without esophagitis K21.9 ; Chronic pain G89.29 ; Insomnia G47.00 and Acquired hypothyroidism E03.9 [place] [address] [place] [id number] [address] [place] [id number] Sep, [place] [address] [address] Aug, Encounter for immunization Z 23 [place] [address] [address] Aug, [place] [address] [address] Jul, [place] [address] [address] Jun, Type 2 diabetes mellitus wit hout complications E11.9 ; HTN (hypertension) I10 ; Hypothyroid E03.9 ; Neuropathy G62.9 ; Depression F32.9 ; Chronic pain G89.29 ; GERD (gastroesophageal reflux disease) K21.9 ; Insomnia G47.00 ; Overactive bladder N32.81 ; Mixed hyperlipidemia E78.2 ; Diarrhea of infectious origin A09 and Environmental allergies Z91.09 [place] [address] [address] Apr, [place] [address] [address] March, Hypothyroidism, unspecified E03.9 and Mixed hyperlipidemia E78.2 [place] [address] [place] [id number] [place] [address] March, Diabetes mellitus E11.9 ; HT N (hypertension) I10 ; Hypothyroid E03.9 ; Depression F32.9 ; Overactive bladder N32.81 ; Other chronic pain G89.29 ; Lumbago with sciatica, unspecified side M54.40 ; Environmental allergies Z91.09 and Gastroesophageal reflux disease, esophagitis presence not specified K21.9 [place] [address] [address] March, [place] [address] [address] Jan, HTN (hypertension) I10 ; Hyp othyroid E03.9 ; Neuropathy G62.9 ; Diabetes mellitus E11.9 ; Chronic pain G89.29 ; GERD (gastroesophageal reflux disease) K21.9 ; Overactive bladder N32.81 and Depression F32.9 [place] [address] [address] 12 Dec, 2015 Ear pain, left H92.02 ; HTN (hypertension) I10 ; Hypothyroid E03.9 ; Neuropathy G62.9 ; Diabetes mellitus E11.9 ; Depression F32.9 ; GERD (gastroesophageal reflux disease) K21.9 ; Insomnia G47.00 and Overactive bladder N32.81 [place] [address] [address] Nov, Overactive bladder N32.81 an d Chronic pain G89.29 [place] [address] [address] Nov, Kidney failure N19 [place] [address] [address] Nov, [place] [address] [address] Nov, [place] [address] [address] Nov, Diabetes mellitus E11.9 ; De pression F32.9 ; Chronic pain G89.29 ; GERD (gastroesophageal reflux disease) K21.9 ; Insomnia G47.00 ; HTN (hypertension) I10 ; Hypothyroid E03.9 ; COPD (chronic obstructive pulmonary disease) J44.9 ; Bladder incontinence R32 and Incontinence R32 [place] [address] [address] Sep, Type 2 diabetes mellitus wit h foot ulcer E11.621 and Chromosomal abnormality, 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 [place] [address] [address] Sep, [place] [address] [address] Aug, [address] [address] Aug, [place] [address] [address] Aug, HTN (hypertension) I10 ; Enc ounter for immunization Z23 ; Hypothyroid E03.9 ; Neuropathy G62.9 ; Diabetes mellitus E11.9 ; Depression F32.9 ; Chronic pain G89.29 ; GERD (gastroesophageal reflux disease) K21.9 ; Insomnia G47.00 and COPD (chronic obstructive pulmonary disease) J44.[address] [address] Jun, [place] [address] [address] Jun, [address] [address] May, Essential hypertension, ivis gn 401.1 ; Unspecified hypothyroidism 244.9 ; Insomnia, unspecified 780.52 ; Shortness of breath 786.05 ; Depression 311 ; COPD (chronic obstructive pulmonary disease) 496 ; GERD (gastroesophageal reflux disease) 530.81 and Diabetes 1.5, 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 [id number] [address] [place] [address] March, Shortness of breath 786.05 ; Nausea with vomiting 787.01 ; Essential hypertension, benign 401.1 ; Diabetes mellitus 250.00 ; Hyperlipidemia 272.4 and Hypothyroid 244.9 [facility] [address] [id number] [address] [place] [id number] Feb, [facility] [address] [id number] [address] [place] [phone] Feb, [facility] [address] [facility] [id number] [address] [place] [phone] Jan, [facility] [address] [id number] [address] [place] [phone] Jan, [facility] [address] [facility] [id number] [address] [place] [phone] Jan, [facility] [address] [facility] [id number] [address] [place] [phone] Jan, [facility] [address] [facility] [id number] [address] [place] [phone] Jan, [facility] [address] [id number] [address] [place] [phone] Jan, [facility] [address] [id number] [address] [place] [phone] Jan, [facility] [address] [facility] [id number] [address] [place] [phone] Jan, [facility] [address] [facility] [id number] [address] [place] [phone] Jan, [facility] [address] [id number] [address] [place] [phone] Jan, [facility] [address] [id number] [address] [place] [address], [place] [id number] Dec, 2014 [facility] [address] [address] [id number] [address] [place] [address], [place] [address] Dec, 2014 [facility] [address] [id number] [address] [place] [address], [place] [address] Dec, 2014 [facility] [address] [id number] [address] [place] [address], [place] [address] Dec, 2014 [facility] [address] [id number] [address] [place] [address], [place] [address] Dec, 2014 [facility] [address] [id number] [address] [place] [address], [place] [address] Dec, 2014 [facility] [address] [id number] [address] [place] [address], [place] [address] Dec, 2014 [facility] [address] [id number] [address] [place] [address], [place] [address] Dec, 2014 [facility] [address] [id number] [address] [place] [address], [place] [address] Dec, 2014 [facility] [address] [id number] [address] [place] [address], [place] [address] Dec, 2014 [facility] [address] [id number] [address] [place] [address], [place] [address] Oct, [facility] [address] [id number] [address] [place] [address], [place] [address] Oct, [facility] [address] [id number] [address] [place] [address], [place] [address] Oct, [facility] [address] [id number] [address] [place] [address], [place] [address] Oct, [facility] [address] [id number] [address] [place] [address], [place] [address] Oct, [facility] [address] [id number] [address] [place] [address], [place] [address] Oct, [facility] [address] [id number] [address] [place] [address], [place] [address] Oct, [facility] [address] [id number] [address] [place] [address], [place] [address] Oct, [facility] [address] [id number] [address] [place] [address], [place] [address] Oct, [facility] [address] [id number] [address] [place] [address], [place] [address] Oct, [facility] [address] [id number] [address] [place] [address], [place] [address] Oct, [facility] [address] [id number] [address] [place] [address], [place] [address] Oct, [facility] [address] [id number] [address] [place] [address], [place] [address] Oct, [facility] [address] [id number] [address] [place] [address], [place] [address] Oct, [facility] [address] [id number] [address] [place] [address], [place] [address] Sep, [facility] [address] [id number] [address] [place] [address], [place] [address] Sep, [facility] [address] [id number] [address] [place] [address], [place] [address] Sep, [facility] [address] [id number] [address] [place] [address], [place] [address] Sep, [facility] [address] [id number] [address] [place] [address], [place] [address] Sep, [facility] [address] [id number] [address] [place] [address], [place] [address] 17 Sep, 2014 [facility] [address] [id number] [address] [place] [address], [place] [address] Sep, [facility] [address] [id number] [address] [place] [address], [place] [address] Sep, [facility] [address] [id number] [address] [place] [address], [place] [address] Sep, [facility] [address] [id number] [address] [place] [address], [place] [address] Aug, [facility] [address] [id number] [address] [place] [address], [place] [address] Aug, [facility] [address] [id number] [address] [place] [address], [place] [address] Aug, [facility] [address] [id number] [address] [place] [address], [place] [address] Aug, [facility] [address] [id number] [address] [place] [address], [place] [address] 16 Aug, 2014 [facility] [address] [id number] [address] [place] [address], [place] [address] Aug, [facility] [address] [id number] [address] [place] [address], [place] [address] Aug, [facility] [address] [id number] [address] [place] [address], [place] [address] Aug, [facility] [address] [id number] [address] [place] [address], [place] [address] Aug, [facility] [address] [id number] [address] [place] [address], [place] [address] 29 Jul, 2014 [facility] [address] [id number] [address] [place] [address], [place] [address] 29 Jul, 2014 [facility] [address] [id number] [address] [place] [address], [place] [address] Jul, [facility] [address] [id number] [address] [place] [address], [place] [address] Jul, [facility] [address] [id number] [facility] [place] [address] Jul, [facility] [address] [id number] [facility] [place] [address] Jul, [facility] [address] [id number] [facility] [place] [address] Jul, [facility] [address] [id number] [facility] [place] [address] Jul, [facility] [address] [id number] [facility] [place] [address] Jul, [facility] [address] [id number] [address] [place] [address], [place] [address] Jul, [facility] [address] [id number] [address] [place] [address], [place] [address] Jun, [facility] [address] [id number] [address] [place] [address], [place] [address] Jun, [facility] [address] [id number] [address] [place] [address], [place] [address] Jun, [facility] [address] [id number] [address] [place] [address], [place] [address] Jun, [facility] [address] [id number] [address] [place] [address], [place] [address] Jun, [facility] [address] [id number] [address] [place] [address], [place] [address] Jun, [facility] [address] [id number] [address] [place] [address], [place] [address] Jun, [facility] [address] [id number] [address] [place] [address], [place] [address] Jun, [facility] [address] [id number] [address] [place] [address], [place] [address] Jun, [facility] [address] [id number] [address] [place] [address], [place] [address] Jun, [facility] [address] [id number] [facility] [place] [address] Jun, [facility] [address] [id number] [address] [place] [address], [place] [address] Jun, [facility] [address] [id number] [address] [place] [address], [place] [address] May, [facility] [address] [id number] [address] [place] [address], [place] [address] May, [facility] [address] [id number] [address] [place] [address], [place] [address] May, [facility] [address] [id number] [address] [place] [address], [place] [address] May, [facility] [address] [id number] [address] [place] [address], [place] [address] May, [facility] [address] [id number] [address] [place] [address], [place] [address] May, [facility] [address] [id number] [address] [place] [address], [place] [address] March, [facility] [address] [id number] [address] [place] [address], [place] [address] March, [facility] [address] [id number] [address] [place] [address], [place] [address] March, [facility] [address] [id number] [address] [place] [address], [place] [address] March, [facility] [address] [id number] [address] [place] [address], [place] [address] March, [facility] [address] [id number] [address] [place] [address], [place] [address] March, [facility] [address] [id number] [address] [place] [address], [place] [address] Feb, [facility] [address] [id number] [facility] [place] [address] 10 Feb, 2014 [facility] [address] [id number] [facility] [place] [address] Feb, [facility] [address] [id number] [address] [place] [address], [place] [address] Feb, [facility] [address] [id number] [address] [place] [address], [place] [address] Jan, [facility] [address] [id number] [address] [place] [address], [place] [address] Jan, [facility] [address] [id number] [address] [place] [address], [place] [address] Jan, [facility] [address] [id number] [address] [place] [address], [place] [address] Jan, [facility] [address] [id number] [address] [place] [address], [place] [address] Jan, [facility] [address] [id number] [address] [place] [address], [place] [address] Jan, [facility] [address] [id number] [address] [place] [address], [place] [address] Jan, [facility] [address] [id number] [address] [place] [address], [place] [address] Jan, [facility] [address] [id number] [address] [place] [address], [place] [address] Jan, [facility] [address] [id number] [address] [place] [address], [place] [address] Jan, [facility] [address] [id number] [address] [place] [address], [place] [address] 05 Jan, 2014 [facility] [address] [id number] [address] [place] [address], [place] [address] Jan, [facility] [address] [id number] [address] [place] [address], [place] [address] Dec, [facility] [address] [id number] [address] [place] [address], [place] [address] Dec, [facility] [address] [id number] [address] [place] [address], [place] [address] Dec, [facility] [address] [id number] [address] [place] [address], [place] [address] Dec, [facility] [address] [id number] [address] [place] [address], [place] [address] Dec, [facility] [address] [id number] [address] [place] [address], [place] [address] Dec, [facility] [address] [id number] [address] [place] [address], [place] [address] Nov, [facility] [address] [id number] [address] [place] [address], [place] [address] Nov, [facility] [address] [id number] [address] [place] [address], [place] [address] Oct, [facility] [address] [id number] [address] [place] [address], [place] [address] Oct, [facility] [address] [id number] [address] [place] [address], [place] [address] Oct, [facility] [address] [id number] [address] [place] [address], [place] [address] Oct, [facility] [address] [id number] [address] [place] [address], [place] [address] Oct, [facility] [address] [id number] [address] [place] [address], [place] [address] Oct, [facility] [address] [id number] [address] [place] [address], [place] [address] Sep, [facility] [address] [id number] [address] [place] [address], [place] [address] Sep, [facility] [address] [id number] [address] [place] [address], [place] [address] Sep, [facility] [address] [id number] [address] [place] [address], [place] [address] Sep, [facility] [address] [id number] [address] [place] [address], [place] [address] Aug, [facility] [address] [id number] [address] [place] [address], [place] [address] Aug, [facility] [address] [id number] [address] [place] [address], [place] [address] Aug, [facility] [address] [id number] [address] [place] [address], [place] [address] 17 Jul, 2013 [facility] [address] [id number] [address] [place] [address], [place] [address] 14 Jul, 2013 [facility] [address] [id number] [address] [place] [address], [place] [address] Jul, [facility] [address] [id number] [address] [place] [address], [place] [address] Jun, [facility] [address] [id number] [address] [place] [address], [place] [address] Jun, [facility] [address] [id number] [address] [place] [address], [place] [address] Jun, [facility] [address] [id number] [address] [place] [address], [place] [address] Apr, [facility] [address] [id number] [address] [place] [address], [place] [address] Apr, [facility] [address] [id number] [address] [place] [address], [place] [address] March, [facility] [address] [id number] [address] [place] [address], [place] [address] March, [facility] [address] [id number] [address] [place] [address], [place] [address] March, [facility] [address] [id number] [address] [place] [address], [place] [address] March, [facility] [address] [id number] [address] [place] [address], [place] [address] Feb, [facility] [address] [id number] [address] [place] [address], [place] [address] Jan, [facility] [address] [id number] [address] [place] [address], [place] [address] Dec, [facility] [address] [id number] [address] [place] [address], [place] [address] Dec, [facility] [address] [id number] [address] [place] [address], [place] [address] Dec, [facility] [address] [id number] [address] [place] [address], [place] [address] Nov, [facility] [address] [id number] [address] [place] [address], [place] [address] Oct, [facility] [address] [id number] [address] [place] [address], [place] [address] Oct, [facility] [address] [id number] [address] [place] [address], [place] [address] Sep, [facility] [address] [id number] [address] [place] [address], [place] [address] Sep, [facility] [address] [id number] [address] [place] [address], [place] [address] Sep, [facility] [address] [id number] [address] [place] [address], [place] [address] Sep, [facility] [address] [id number] [address] [place] [address], [place] [address] Sep, [facility] [address] [id number] [address] [place] [address], [place] [address] Sep, [facility] [address] [id number] [address] [place] [address] 05 Sep, 2012 [facility] [address] [id number] [address] [place] [address], [place] [address] 16 Aug, 2012 [facility] [address] [id number] [address] [place] [address], [place] [address] 16 Aug, 2012 [facility] [address] [id number] [address] [place] [address], [place] [address] 10 Aug, 2012 [facility] [address] [id number] [address] [place] [address], [place] [address] 10 Aug, 2012 [facility] [address] [id number] [address] [place] [address], [place] [address] 08 Aug, 2012 [facility] [address] [id number] [address] [place] [address], [place] [address] 08 Aug, 2012 [facility] [address] [id number] [address] [place] [address], [place] [address] Aug, [facility] [address] [id number] [address] [place] [address], [place] [address] Aug, [facility] [address] [id number] [address] [place] [address], [place] [address] Jul, [facility] [address] [id number] [address] [place] [address], [place] [address] Jul, [facility] [address] [id number] [address] [place] [address], [place] [address] Jun, [facility] [address] [id number] [address] [place] [address], [place] [address] May, [facility] [address] [id number] [address] [place] [address], [place] [address] Apr, [facility] [address] [id number] [address] [place] [address], [place] [address] Apr, [facility] [address] [id number] [address] [place] [address], [place] [address] Apr, [facility] [address] [id number] [address] [place] [address], [place] [address] March, [facility] [address] [id number] [address] [place] [address], [place] [address] March, [facility] [address] [id number] [address] [place] [address], [place] [address] March, [facility] [address] [id number] [address] [place] [address], [place] [address] March, [facility] [address] [id number] [address] [place] [address], [place] [address] March, [facility] [address] [id number] [address] [place] [address], [place] [address] March, [facility] [address] [id number] [address] [place] [address], [place] [address] March, [facility] [address] [id number] [address] [place] [address], [place] [address] Jan, [facility] [address] [id number] [address] [place] [address], [place] [address] Jan, [facility] [address] [id number] [address] [place] [address], [place] [address] Jan, [facility] [address] [id number] [address] [place] [address], [place] [address] Jan, [facility] [address] [id number] [address] [place] [address], [place] [address] Jan, [facility] [address] [id number] [address] [place] [address], [place] [address] Dec, [facility] [address] [id number] [address] [place] [address], [place] [address] Dec, [facility] [address] [id number] [address] [place] [address], [place] [address] Nov, [facility] [address] [id number] [address] [place] [address], [place] [address] Nov, [facility] [address] [id number] [address] [place] [address], [place] [address] Nov, [facility] [address] [id number] [address] [place] [address], [place] [address] Nov, [facility] [address] [id number] [address] [place] [address], [place] [address] Oct, [facility] [address] [id number] [address] [place] [address], [place] [address] Oct, [facility] [address] [id number] [address] [place] [address], [place] [address] 14 Sep, 2011 [facility] [address] [id number] [address] [place] [address], [place] [address] Sep, [facility] [address] [id number] [address] [place] [address], [place] [address] Sep, [facility] [address] [id number] [address] [place] [address], [place] [address] May, [facility] [address] [id number] [address] [place] [address], [place] [address] Nov, [facility] [address] [id number] [address] [place] [address], [place] [address] Oct, [facility] [address] [id number] [address] [place] [address], [place] [address] Oct, [facility] [address] [id number] [address] [place] [address], [place] [address] 08 Oct, 2010 [facility] [address] [id number] [address] [place] [address], [place] [address] 15 Sep, 2010 [facility] [address] [id number] [address] [place] [address], [place] [address] 02 Sep, 2010 [facility] [address] [id number] [address] [place] [address], [place] [address] Aug, [facility] [address] [id number] [address] [place] [phone] March, [facility] [address] [id number] [address] [place] [phone] Oct, [facility] [address] [id number] [address] [place] [address] Oct, [facility] [address] [id number] [address] [place] [id number] Oct, [facility] [address] [id number] [address] [place] [address] Oct, [facility] [address] [id number] [address] [place] [phone] Sep, [facility] [address] [id number] [address] [place] [phone] Sep, [facility] [address] [id number] [address] [place] [phone] Sep, [facility] [address] [id number] [address] [place] [id number] Aug, [facility] [address] [id number] [address] [place] [id number] Aug, [facility] [address] [id number] [address] [place] [phone] Aug, [facility] [address] [id number] [address] [place] [phone] Jan, IMMUNIZATIONS No Known Immunizations SOCIAL HISTORY Never Assessed REASON FOR VISIT [facility] PLAN OF CARE VITAL SIGNS MEDICATIONS Unknown [...]
--- OUTSIDE RECORDS SUMMARY | 2020-06-13 16:16 | XMS REPORT ---
Author Author Jah Durant Doctor Organization [facility] Address Unknown Phone Unavailable Care Team Providers Care Armed Guard Name Role Phone Migration, Doctor Unavailable Unavailable PROBLEMS Type Condition ICD9-CM Code ASR16-VN Code Onset Dates Condition S tatus SNOMED Code Problem Hypothyroid E03.9 Active 75422779 Problem Neuropathy G62.9 Active 835885391 Problem Mixed hyperlipidemia E78.2 Active 192593994 Problem Overactive bladder N32.81 Active 2 23796504 Problem Irritable bowel syndrome with diarrhea K58.0 Active 618231818 Problem Gastroesophageal reflux disease with esophagitis K 21.0 Active 587751543 Problem Type 2 diabetes mellitus with hyperglycemia E11.65 Active 11187772 Problem correction current use of insulin Z79.4 Active 044768918 Problem Current non-adherence to medical treatment Z91.19 Active 2478600 Problem Recurrent major depressive disorder, in partial remission F33.41 Active 87867500 Problem Chronic fatigue R53.82 Active 8422 9001 Problem 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 Active 373285843 Problem Pulmonary emphysema, unspecified emphysema type J4 3.9 Active 02817425 Problem Thrombocytosis D47.3 Active 74477 09 Problem Acquired hypothyroidism E03.9 Active 299398534 Problem Essential (primary) hypertension I10 Active 63983254 Problem Chronic pain G89.29 Active 1370902 1 Problem Anxiety disorder, unspecified type F41.9 Active 923480104 Problem Major depressive disorder, recurrent episode, moderate F33.1 Active 329037649 Problem Hypertriglyceridemia E78.1 Active 830250132 Problem Gastroparesis K31.84 Active 784988 006 ALLERGIES No Information ENCOUNTERS Encounter Location Date Diagnosis [address] [address] Feb, [facility] [address] [facility] [id number] [address] [address] Feb, Other chronic pain G89.29 an d Chronic pain G89.29 [facility] [address] [facility] [id number] [address] [place] [address] 18 Jan, 2019 Mixed hyperlipidemia E78.2 [facility] [address] [facility] [id number] [address] [place] [address] 11 Jan, 2019 Chronic pain G89.29 [facility] [address] [facility] [id number] [address] [place] [address] 08 Jan, 2019 Type 2 diabetes mellitus wit h hyperglycemia E11.65 ; Mixed hyperlipidemia E78.2 ; correction current use of insulin Z79.4 ; Acquired hypothyroidism E03.9 and Essential (primary) hypertension I10 [facility] [address] [facility] [id number] [address] [place] [address] Dec, Chronic pain G89.29 [facility] [address] [facility] [id number] [address] [place] [address] 14 Nov, 2018 Chronic pain G89.29 [facility] [address] [facility] [id number] [address] [place] [address] Nov, [facility] [address] [facility] [id number] [address] [place] [address] Oct, Chronic pain G89.29 [facility] [address] [place] [id number] [address] [place] [address] Oct, [facility] [address] [facility] [id number] [address] [place] [address] Sep, [facility] [address] [facility] [id number] [address] [place] [address] Sep, Type 2 diabetes mellitus wit h hyperglycemia E11.65 [facility] [address] [facility] [id number] [address] [place] [address] 16 Sep, 2018 Chronic pain G89.29 [facility] [address] [facility] [id number] [address] [place] [address] Sep, [facility] [address] [place] [id number] [address] [place] [address] Sep, Type 2 diabetes mellitus wit h hyperglycemia E11.65 ; Irritable bowel syndrome with diarrhea K58.0 ; Gastroparesis K31.84 ; 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 and Dermatitis L30.9 [place] [address] [facility] [id number] [address] [place] [address] Aug, Chronic pain G89.29 [place] [address] [facility] [id number] [address] [place] [address] Jul, Chronic pain G89.29 [place] [address] [place] [id number] [address] [place] [address] Jun, Type 2 diabetes mellitus wit h hyperglycemia E11.65 ; Neuropathy G62.9 ; Recurrent major depressive disorder, in partial remission F33.41 ; Chronic pain G89.29 and Hypertriglyceridemia E78.1 [place] [address] [place] [id number] [address] [place] [address] Jun, Hypothyroid E03.9 [place] [address] [place] [id number] [address] [place] [address] Jun, Major depressive disorder, r ecurrent episode, moderate F33.1 and Anxiety disorder, unspecified type F41.9 [place] [address] [place] [id number] [address] [place] [address] Jun, [place] [address] [place] [address] Jun, Type 2 diabetes mellitus wit h hyperglycemia E11.65 ; 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.4 ; Recurrent major depressive disorder, in partial remission F33.41 ; Hypothyroid E03.9 ; Candidal dermatitis B37.2 and Weakness generalized R53.1 [place] [address] [place] [id number] [address] [place] [address] May, [place] [address] [place] [id number] [address] [place] [address] May, [place] [address] [place] [id number] [address] [place] [address] May, [facility] [address] [facility] [id number] [address] [place] [address] May, Generalized abdominal pain R 10.84 and Candidal dermatitis B37.2 [place] [address] [facility] [id number] [address] [place] [address] May, [place] [address] [place] [id number] [place] [address] May, [place] [address] [facility] [id number] [place] [address] May, Nodular radiologic density R 93.8 ; Weight loss, unintentional R63.4 and Pulmonary emphysema, unspecified emphysema type J43.9 [place] [address] [place] [id number] [place] [address] May, Chronic pain G89.29 [place] [address] [address] May, Syncope and collapse R55 ; C hronic fatigue R53.[address] lung screening R91.8 [place] [address] [place] [id number] [place] [address] May, [place] [address] [place] [id number] [place] [address] Apr, Chronic fatigue R53.82 ; Abn ormal chest CT R93.8 ; Elevated erythrocyte sedimentation rate R70.0 ; Hypothyroid E03.9 and Recurrent major depressive disorder, in partial remission F33.41 [place] [address] [facility] [id number] [address] [place] [address] Apr, Hypothyroid E03.9 [place] [address] [facility] [id number] [address] [place] [address] Apr, Depression F32.9 [place] [address] [facility] [id number] [address] [place] [address] Apr, [place] [address] [facility] [id number] [address] [place] [address] March, [place] [address] [facility] [id number] [address] [place] [address] March, Hypothyroid E03.9 [place] [address] [facility] [id number] [address] [place] [address] March, Diabetes mellitus E11.9 and Hypothyroid E03.9 [place] [address] [facility] [id number] [address] [place] [address] March, Diabetes mellitus E11.9 [place] [address] [facility] [id number] [address] [place] [address] March, Hypothyroid E03.9 and Elevat ed liver enzymes R74.8 [place] [address] [facility] [id number] [address] [place] [address] March, Type 2 diabetes mellitus wit h hyperglycemia E11.65 ; 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.4 ; Pulmonary emphysema, unspecified emphysema type J43.9 ; Hypothyroid E03.9 ; Neuropathy G62.9 ; Mixed hyperlipidemia E78.2 ; Chronic pain G89.29 ; Gastroesophageal reflux disease with esophagitis K21.0 ; Irritable bowel syndrome with diarrhea K58.0 ; Overactive bladder N32.81 and Recurrent major depressive disorder, in partial remission F33.41 [place] [address] [facility] [id number] [address] [place] [address] Feb, Chronic pain G89.29 [place] [address] [facility] [id number] [address] [place] [address] Feb, Type 2 diabetes mellitus wit h hyperglycemia E11.65 and Skin lesion of scalp L98.9 [place] [address] [facility] [id number] [address] [place] [address] Feb, [place] [address] [facility] [id number] [address] [place] [address] Jan, Type 2 diabetes mellitus wit h [...] and Irritable bowel syndrome with diarrhea K58.0 [place] [address] [id number] [address] [place] [address] Jan, [place] [address] [facility] [id number] [address] [place] [address] Jan, Controlled substance agreeme nt signed Z79.899 [place] [address] [place] [id number] [address] [place] [address] Dec, Type 2 diabetes mellitus wit h [...] treatment Z91.19 and Overweight (BMI 25.0-29.9) E66.3 [place] [address] [place] [id number] [address] [place] [address] Dec, Controlled substance agreeme nt signed Z79.899 [place] [address] [facility] [id number] [address] [place] [address] Nov, Type 2 diabetes mellitus wit h hyperglycemia E11.65 and Current non- adherence to medical treatment Z91.19 [place] [address] [facility] [id number] [address] [place] [address] Nov, [place] [address] [facility] [id number] [address] [place] [address] Nov, Chronic pain G89.29 [place] [address] [id number] [address] [place] [address] Nov, [facility] [address] [id number] [address] [place] [address] Nov, Hypothyroid E03.9 [facility] [address] [id number] [address] [place] [address] Nov, Hypothyroid E03.9 [facility] [address] [id number] [address] [place] [address] Nov, Pulmonary emphysema, unspeci fied emphysema type J43.9 and Irritable bowel syndrome with diarrhea K58.0 [facility] [address] [id number] [address] [place] [address] Oct, [facility] [address] [id number] [address] [place] [address] Oct, [facility] [address] [facility] [id number] [address] [place] [address] Oct, [facility] [address] [id number] [address] [place] [address] Oct, [facility] [address] [facility] [id number] [address] [place] [address] Oct, Chronic pain G89.29 [facility] [address] [facility] [id number] [address] [place] [address] Oct, Diabetes mellitus E11.9 ; De pression F32.9 ; Mixed hyperlipidemia E78.2 ; Hypotension, unspecified hypotension type I95.9 ; Pulmonary emphysema, unspecified emphysema type J43.9 and Weight loss, unintentional R63.4 [facility] [address] [facility] [id number] [address] [place] [address] Oct, Chronic pain G89.29 [facility] [address] [facility] [id number] [address] [place] [address] Sep, Chronic pain G89.29 [facility] [address] [facility] [id number] [address] [place] [address] Sep, Hypothyroid E03.9 and Diabet es mellitus E11.9 [place] [address] [place] [id number] [address] [place] [address] Aug, Type 2 diabetes mellitus wit h hyperglycemia E11.65 ; correction current use of insulin Z79.4 ; Essential (primary) hypertension I10 ; Hypothyroid E03.9 ; Neuropathy G62.9 ; Chronic pain G89.29 ; Mixed hy perlipidemia E78.2 and Encounter for immunization Z23 [facility] [address] [facility] [id number] [address] [place] [address] Aug, Chronic pain G89.29 [place] [address] [place] [id number] [place] [address] Aug, Overactive bladder N32.81 ; Diabetes mellitus E11.9 and Chronic pain G89.29 [place] [address] [place] [id number] [address] [place] [address] Jul, [place] [address] [place] [id number] [address] [place] [address] Jun, [place] [address] [address] Jun, [place] [address] [place] [id number] [address] [place] [address] Jun, Hypothyroid E03.9 [place] [address] [place] [id number] [address] [place] [address] Jun, Diabetes mellitus E11.9 ; Hy pothyroid E03.9 ; Neuropathy G62.9 ; Chronic pain G89.29 and Neck mass R22.1 [place] [address] [place] [id number] [address] [place] [address] Apr, [place] [address] [place] [id number] [address] [place] [address] Apr, Acute cystitis without hemat uria N30.00 [place] [address] [place] [id number] [address] [place] [address] March, [facility] [address] [facility] [id number] [address] [place] [address] March, [facility] [address] [place] [id number] [address] [place] [address] March, Near syncope R55 [facility] [address] [place] [id number] [place] [address] Feb, [facility] [address] [place] [id number] [place] [address] Feb, Chronic pain G89.29 [facility] [address] [place] [id number] [place] [address] Feb, [facility] [address] [place] [id number] [address] [place] [address] Feb, [facility] [address] [place] [id number] [place] [address] Jan, Chronic pain G89.29 [facility] [address] [place] [id number] [address] [place] [address] Jan, [facility] [address] [place] [id number] [address] [place] [address] Jan, [facility] [address] [place] [id number] [address] [place] [address] Jan, Diabetes mellitus E11.9 ; Hy pothyroid E03.9 ; GERD (gastroesophageal reflux disease) K21.9 ; Insomnia G47.00 ; Functional 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 ; Neuropathy G62.9 ; Depression F32.9 ; Chronic pain G89.29 ; Irritable bowel syndrome with diarrhea K58.0 ; Overactive bladder N32.81 ; Mixed hyperlipidemia E78.2 and Bronchitis J40 [facility] [address] [place] [id number] [address] [place] [address] Dec, [facility] [address] [place] [id number] [address] [place] [address] Dec, [facility] [address] [facility] [id number] [address] [place] [address] Dec, [facility] [address] [facility] [id number] [address] [place] [address] Dec, [facility] [address] [facility] [id number] [address] [place] [address] Dec, Chronic pain G89.29 [facility] [address] [facility] [id number] [address] [place] [address] Dec, [facility] [address] [facility] [id number] [address] [place] [address] Dec, [facility] [address] [facility] [id number] [address] [place] [address] Dec, Type 2 diabetes mellitus wit h foot ulcer E11.621 [facility] [address] [place] [id number] [address] [place] [address] Dec, Type 2 diabetes mellitus wit h foot ulcer E11.621 [facility] [address] [place] [address] Dec, HTN (hypertension) I10 ; Dep ression F32.9 ; Type 2 diabetes mellitus with foot ulcer E11.621 ; Functional 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 ; Irritable bowel syndrome with diarrhea K58.0 ; Chronic pain G89.29 ; Insomnia G47.00 ; Overactive bladder N32.81 ; Mixed hyperlipidemia E78.2 ; Gastroesophageal reflux disease with esophagitis K21.0 and Acquired hypothyroidism E03.9 [facility] [address] [facility] [id number] [address] [place] [address] Nov, [facility] [address] [place] [id number] [address] [place] [address] Oct, [facility] [id number] [place] [address] Oct, [facility] [address] [place] 70664 [address] [place] [address] Oct, [place] [address] [address] Sep, Functional 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 ; HTN (hypertension) I10 ; Diabetes mellitus E11.9 ; Depression F32.9 ; Overactive bladder N32.81 ; Mixed hyperlipidemia E78.2 ; Gastroesophageal reflux disease without esophagitis K21.9 ; Chronic pain G89.29 ; Insomnia G47.00 and Acquired hypothyroidism E03.9 [place] [address] [address] Sep, [place] [address] [address] Aug, Encounter for immunization Z 23 [place] [address] [address] Aug, [place] [address] [address] Jul, [place] [address] [address] Jun, Type 2 diabetes mellitus wit hout complications E11.9 ; HTN (hypertension) I10 ; Hypothyroid E03.9 ; Neuropathy G62.9 ; Depression F32.9 ; Chronic pain G89.29 ; GERD (gastroesophageal reflux disease) K21.9 ; Insomnia G47.00 ; Overactive bladder N32.81 ; Mixed hyperlipidemia E78.2 ; Diarrhea of infectious origin A09 and Environmental allergies Z91.09 [place] [address] [place] [id number] [address] [place] [address] Apr, [place] [address] [address] March, Hypothyroidism, unspecified E03.9 and Mixed hyperlipidemia E78.2 [place] [address] [address] March, Diabetes mellitus E11.9 ; HT N (hypertension) I10 ; Hypothyroid E03.9 ; Depression F32.9 ; Overactive bladder N32.81 ; Other chronic pain G89.29 ; Lumbago with sciatica, unspecified side M54.40 ; Environmental allergies Z91.09 and Gastroesophageal reflux disease, esophagitis presence not specified K21.9 [place] [address] [address] March, [place] [address] [address] Jan, HTN (hypertension) I10 ; Hyp othyroid E03.9 ; Neuropathy G62.9 ; Diabetes mellitus E11.9 ; Chronic pain G89.29 ; GERD (gastroesophageal reflux disease) K21.9 ; Overactive bladder N32.81 and Depression F32.9 [place] [address] [address] 12 Dec, 2015 Ear pain, left H92.02 ; HTN (hypertension) I10 ; Hypothyroid E03.9 ; Neuropathy G62.9 ; Diabetes mellitus E11.9 ; Depression F32.9 ; GERD (gastroesophageal reflux disease) K21.9 ; Insomnia G47.00 and Overactive bladder N32.81 [place] [address] [address] Nov, Overactive bladder N32.81 an d Chronic pain G89.29 [place] [address] [address] Nov, Kidney failure N19 [place] [address] [place] [id number] [address] [place] [address] Nov, [place] [address] [address] Nov, [place] [address] [place] [id number] [place] [address] Nov, Diabetes mellitus E11.9 ; De pression F32.9 ; Chronic pain G89.29 ; GERD (gastroesophageal reflux disease) K21.9 ; Insomnia G47.00 ; HTN (hypertension) I10 ; Hypothyroid E03.9 ; COPD (chronic obstructive pulmonary disease) J44.9 ; Bladder incontinence R32 and Incontinence R32 [address] [address] Sep, Type 2 diabetes mellitus wit h foot ulcer E11.621 and Chromosomal abnormality, 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 [address] Sep, [address] [address] Aug, [address] [address] Aug, [address] [address] Aug, HTN (hypertension) I10 ; Enc ounter for immunization Z23 ; Hypothyroid E03.9 ; Neuropathy G62.9 ; Diabetes mellitus E11.9 ; Depression F32.9 ; Chronic pain G89.29 ; GERD (gastroesophageal reflux disease) K21.9 ; Insomnia G47.00 and COPD (chronic obstructive pulmonary disease) J44.[address] [address] Jun, [address] [address] Jun, [address] [address] May, Essential hypertension, ivis gn 401.1 ; Unspecified hypothyroidism 244.9 ; Insomnia, unspecified 780.52 ; Shortness of breath 786.05 ; Depression 311 ; COPD (chronic obstructive pulmonary disease) 496 ; GERD (gastroesophageal reflux disease) 530.81 and Diabetes 1.5, 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 [address] May, [address] [id number] [address] [place] [address] May, [facility] [address] [facility] [id number] [address] [place] [address] May, Shortness of breath 786.05 ; Essential hypertension, benign 401.1 ; Diabetes mellitus 250.00 ; Hyperlipidemia 272.4 ; Hypothyroid 244.9 ; Insomnia 780.52 and Cough 786.2 [facility] [address] [facility] [id number] [address] [place] [id number] Apr, [facility] [address] [facility] [id number] [address] [place] [id number] March, Shortness of breath 786.05 ; Nausea with vomiting 787.01 ; Essential hypertension, benign 401.1 ; Diabetes mellitus 250.00 ; Hyperlipidemia 272.4 and Hypothyroid 244.9 [facility] [address] [facility] [id number] [address] [place] [id number] Feb, [facility] [address] [facility] [id number] [address] [place] [phone] Feb, [facility] [address] [facility] [id number] [address] [place] [phone] Jan, [facility] [address] [facility] [id number] [address] [place] [phone] Jan, [facility] [address] [facility] [id number] [address] [place] [id number] Jan, [facility] [address] [facility] [id number] [address] [place] [id number] Jan, [facility] [address] [facility] [id number] [address] [place] [phone] Jan, [facility] [address] [place] [id number] [address] [place] [id number] Jan, [facility] [address] [facility] [id number] [address] [place] [id number] Jan, [facility] [address] [id number] [address] [place] [address], [place] [address] Jan, [facility] [address] [id number] [address] [place] [address], [place] [address] Jan, [facility] [address] [id number] [address] [place] [address], [place] [address] Jan, [facility] [address] [id number] [address] [place] [address], [place] [address] Dec, 2014 [facility] [address] [id number] [address] [place] [address], [place] [address] Dec, 2014 [facility] [address] [id number] [address] [place] [address], [place] [address] Dec, 2014 [facility] [facility] [address] [id number] [address] [place] [address], [place] [address] Dec, 2014 [facility] [address] [id number] [address] [place] [address], [place] [address] Dec, 2014 [facility] [address] [id number] [address] [place] [address], [place] [address] Dec, 2014 [facility] [address] [id number] [address] [place] [address], [place] [address] Dec, 2014 [facility] [address] [id number] [address] [place] [address] Dec, 2014 [facility] [address] [id number] [address] [place] [address] Dec, 2014 [facility] [address] [id number] [address] [place] [address], [place] [address] Dec, [facility] [address] [id number] [address] [place] [address] Oct, [facility] [address] [id number] [address] [place] [address] Oct, [facility] [address] [id number] [address] [place] [address] Oct, [facility] [address] [id number] [address] [place] [address], [place] [address] Oct, [facility] [address] [id number] [address] [place] [address], [place] [address] Oct, [facility] [address] [id number] [address] [place] [address], [place] [address] Oct, [facility] [address] [id number] [address] [place] [address], [place] [address] Oct, [facility] [address] [id number] [address] [place] [address], [place] [address] Oct, [facility] [address] [id number] [address] [place] [address], [place] [address] Oct, [facility] [address] [id number] [address] [place] [address], [place] [address] Oct, [facility] [address] [id number] [address] [place] [address], [place] [address] Oct, [facility] [address] [id number] [address] [place] [address], [place] [address] Oct, [facility] [address] [id number] [address] [place] [address], [place] [address] Oct, [facility] [address] [id number] [address] [place] [address], [place] [address] Oct, [facility] [address] [id number] [address] [place] [address], [place] [address] Sep, [facility] [address] [id number] [address] [place] [address], [place] [address] Sep, [facility] [address] [id number] [address] [place] [address], [place] [address] Sep, [facility] [address] [id number] [address] [place] [address], [place] [address] Sep, [facility] [address] [id number] [address] [place] [address], [place] [address] 18 Sep, 2014 [facility] [address] [id number] [address] [place] [address], [place] [address] Sep, [facility] [address] [id number] [address] [place] [address], [place] [address] Sep, [facility] [address] [id number] [address] [place] [address], [place] [address] Sep, [facility] [address] [id number] [address] [place] [address], [place] [address] Sep, [facility] [address] [id number] [address] [place] [address], [place] [address] Aug, [facility] [address] [id number] [address] [place] [address], [place] [address] Aug, [facility] [address] [id number] [address] [place] [address], [place] [address] Aug, [facility] [address] [id number] [address] [place] [address], [place] [address] Aug, [facility] [address] [id number] [address] [place] [address], [place] [address] 16 Aug, 2014 [facility] [address] [id number] [address] [place] [address], [place] [address] Aug, [facility] [address] [id number] [address] [place] [address], [place] [address] Aug, [facility] [address] [id number] [address] [place] [address], [place] [address] Aug, [facility] [address] [id number] [address] [place] [address], [place] [address] Aug, [facility] [address] [id number] [address] [place] [address], [place] [address] 29 Jul, 2014 [facility] [address] [id number] [address] [place] [address], [place] [address] Jul, [facility] [address] [id number] [facility] [place] [address] Jul, [facility] [address] [id number] [facility] [place] [address] Jul, [facility] [address] [id number] [facility] [place] [address] Jul, [facility] [address] [id number] [address] [place] [address], [place] [address] Jul, [facility] [address] [id number] [address] [place] [address], [place] [address] Jul, [facility] [address] [id number] [address] [place] [address], [place] [address] Jul, [facility] [address] [id number] [address] [place] [address], [place] [address] Jul, [facility] [address] [id number] [address] [place] [address], [place] [address] Jul, [facility] [address] [id number] [address] [place] [address], [place] [address] Jun, [facility] [address] [id number] [address] [place] [address], [place] [address] Jun, [facility] [address] [id number] [address] [place] [address], [place] [address] Jun, [facility] [address] [id number] [address] [place] [address], [place] [address] Jun, [facility] [address] [id number] [address] [place] [address], [place] [address] Jun, [facility] [address] [id number] [address] [place] [address], [place] [address] Jun, [facility] [address] [id number] [address] [place] [address], [place] [address] Jun, [facility] [address] [id number] [facility] [place] [address] Jun, [facility] [address] [id number] [address] [place] [address], [place] [address] Jun, [facility] [address] [id number] [address] [place] [address], [place] [address] Jun, [facility] [address] [id number] [address] [place] [address], [place] [address] Jun, [facility] [address] [id number] [address] [place] [address], [place] [address] Jun, [facility] [address] [id number] [address] [place] [address], [place] [address] May, [facility] [address] [id number] [address] [place] [address], [place] [address] May, [facility] [address] [id number] [address] [place] [address], [place] [address] May, [facility] [address] [id number] [address] [place] [address], [place] [address] May, [facility] [address] [id number] [address] [place] [address], [place] [address] May, [facility] [address] [id number] [address] [place] [address], [place] [address] May, [facility] [address] [id number] [address] [place] [address], [place] [address] March, [facility] [address] [id number] [address] [place] [address], [place] [address] March, [facility] [address] [id number] [address] [place] [address], [place] [address] March, [facility] [address] [id number] [address] [place] [address], [place] [address] March, [facility] [address] [id number] [address] [place] [address], [place] [address] March, [facility] [address] [id number] [facility] [place] [address] March, [facility] [address] [id number] [facility] [place] [address] Feb, [facility] [address] [id number] [facility] [place] [address] Feb, [facility] [address] [id number] [address] [place] [address], [place] [address] Feb, [facility] [address] [id number] [address] [place] [address], [place] [address] Feb, [facility] [address] [id number] [address] [place] [address], [place] [address] Jan, [facility] [address] [id number] [address] [place] [address], [place] [address] Jan, [facility] [address] [id number] [address] [place] [address], [place] [address] Jan, [facility] [address] [id number] [address] [place] [address], [place] [address] Jan, [facility] [address] [id number] [address] [place] [address], [place] [address] Jan, [facility] [address] [id number] [address] [place] [address], [place] [address] Jan, [facility] [address] [id number] [address] [place] [address], [place] [address] Jan, [facility] [address] [id number] [address] [place] [address], [place] [address] Jan, [facility] [address] [id number] [address] [place] [address], [place] [address] Jan, [facility] [address] [id number] [address] [place] [address], [place] [address] Jan, [facility] [address] [id number] [address] [place] [address], [place] [address] Jan, [facility] [address] [id number] [address] [place] [address], [place] [address] Jan, [facility] [address] [id number] [address] [place] [address], [place] [address] Dec, [facility] [address] [id number] [address] [place] [address], [place] [address] Dec, [facility] [address] [id number] [address] [place] [address], [place] [address] Dec, [facility] [address] [id number] [address] [place] [address], [place] [address] Dec, [facility] [address] [id number] [address] [place] [address], [place] [address] Dec, [facility] [address] [id number] [address] [place] [address], [place] [address] Dec, [facility] [address] [id number] [address] [place] [address], [place] [address] Nov, [facility] [address] [id number] [address] [place] [address], [place] [address] Nov, [facility] [address] [id number] [address] [place] [address], [place] [address] Oct, [facility] [address] [id number] [address] [place] [address], [place] [address] Oct, [facility] [address] [id number] [address] [place] [address], [place] [address] Oct, [facility] [address] [id number] [address] [place] [address], [place] [address] Oct, [facility] [address] [id number] [address] [place] [address], [place] [address] Oct, [facility] [address] [id number] [address] [place] [address], [place] [address] Oct, [facility] [address] [id number] [address] [place] [address], [place] [address] Sep, [facility] [address] [id number] [address] [place] [address], [place] [address] Sep, [facility] [address] [id number] [address] [place] [address], [place] [address] Sep, [facility] [address] [id number] [address] [place] [address], [place] [address] Sep, [facility] [address] [id number] [address] [place] [address], [place] [address] Aug, [facility] [address] [id number] [address] [place] [address], [place] [address] Aug, [facility] [address] [id number] [address] [place] [address], [place] [address] Aug, [facility] [address] [id number] [address] [place] [address], [place] [address] 17 Jul, 2013 [facility] [address] [id number] [address] [place] [address], [place] [address] 14 Jul, 2013 [facility] [address] [id number] [address] [place] [address], [place] [address] 04 Jul, 2013 [facility] [address] [id number] [address] [place] [address], [place] [address] Jun, [facility] [address] [id number] [address] [place] [address], [place] [address] Jun, [facility] [address] [id number] [address] [place] [address], [place] [address] Jun, [facility] [address] [id number] [address] [place] [address], [place] [address] Apr, [facility] [address] [id number] [address] [place] [address], [place] [address] Apr, [facility] [address] [id number] [address] [place] [address], [place] [address] March, [facility] [address] [id number] [address] [place] [address], [place] [address] March, [facility] [address] [id number] [address] [place] [address], [place] [address] March, [facility] [address] [id number] [address] [place] [address], [place] [address] March, [facility] [address] [id number] [address] [place] [address], [place] [address] Feb, [facility] [address] [id number] [address] [place] [address], [place] [address] Jan, [facility] [address] [id number] [address] [place] [address], [place] [address] Dec, [facility] [address] [id number] [address] [place] [address], [place] [address] 08 Dec, 2012 [facility] [address] [id number] [address] [place] [address], [place] [address] Dec, [facility] [address] [id number] [address] [place] [address], [place] [address] Nov, [facility] [address] [id number] [address] [place] [address], [place] [address] Oct, [facility] [address] [id number] [address] [place] [address], [place] [address] Oct, [facility] [address] [id number] [address] [place] [address], [place] [address] Sep, [facility] [address] [id number] [address] [place] [address], [place] [address] Sep, [facility] [address] [id number] [address] [place] [address], [place] [address] Sep, [facility] [address] [id number] [address] [place] [address], [place] [address] Sep, [facility] [address] [id number] [address] [place] [address], [place] [address] 08 Sep, 2012 [facility] [address] [id number] [address] [place] [address], [place] [address] Sep, [facility] [address] [id number] [address] [place] [address], [place] [address] Sep, [facility] [address] [id number] [address] [place] [address], [place] [address] Aug, [facility] [address] [id number] [address] [place] [address], [place] [address] Aug, [facility] [address] [id number] [address] [place] [address], [place] [address] Aug, [facility] [address] [id number] [address] [place] [address], [place] [address] Aug, [facility] [address] [id number] [address] [place] [address], [place] [address] Aug, [facility] [address] [id number] [address] [place] [address], [place] [address] Aug, [facility] [address] [id number] [address] [place] [address], [place] [address] Aug, [facility] [address] [id number] [address] [place] [address], [place] [address] Aug, [facility] [address] [id number] [address] [place] [address], [place] [address] Jul, [facility] [address] [id number] [address] [place] [address], [place] [address] Jul, [facility] [address] [id number] [address] [place] [address], [place] [address] Jun, [facility] [address] [id number] [address] [place] [address], [place] [address] May, [facility] [address] [id number] [address] [place] [address], [place] [address] Apr, [facility] [address] [id number] [address] [place] [address], [place] [address] Apr, [facility] [address] [id number] [address] [place] [address], [place] [address] Apr, [facility] [address] [id number] [address] [place] [address], [place] [address] March, [facility] [address] [id number] [address] [place] [address], [place] [address] March, [facility] [address] [id number] [address] [place] [address], [place] [address] March, [facility] [address] [id number] [address] [place] [address], [place] [address] March, [facility] [address] [id number] [address] [place] [address], [place] [address] March, [facility] [address] [id number] [address] [place] [address], [place] [address] March, [facility] [address] [id number] [address] [place] [address], [place] [address] March, [facility] [address] [id number] [address] [place] [address], [place] [address] Jan, [facility] [address] [id number] [address] [place] [address], [place] [address] Jan, [facility] [address] [id number] [address] [place] [address], [place] [address] Jan, [facility] [address] [id number] [address] [place] [address], [place] [address] Jan, [facility] [address] [id number] [address] [place] [address], [place] [address] Jan, [facility] [address] [id number] [address] [place] [address], [place] [address] Dec, [facility] [address] [id number] [address] [place] [address], [place] [address] 06 Dec, 2011 [facility] [address] [id number] [address] [place] [address], [place] [address] 18 Nov, 2011 [facility] [address] [id number] [address] [place] [address], [place] [address] 10 Nov, 2011 [facility] [address] [id number] [address] [place] [address], [place] [address] Nov, [facility] [address] [id number] [address] [place] [address], [place] [address] 05 Nov, 2011 [facility] [address] [id number] [address] [place] [address], [place] [address] Oct, [facility] [address] [id number] [address] [place] [address], [place] [address] Oct, [facility] [address] [id number] [address] [place] [address], [place] [address] 14 Sep, 2011 [facility] [address] [id number] [address] [place] [address], [place] [address] Sep, [facility] [address] [id number] [address] [place] [address], [place] [address] Sep, [facility] [address] [id number] [address] [place] [address], [place] [address] May, [facility] [address] [id number] [address] [place] [address], [place] [address] Nov, [facility] [address] [id number] [address] [place] [address], [place] [address] 29 Oct, 2010 [facility] [address] [id number] [address] [place] [address], [place] [address] 14 Oct, 2010 [facility] [address] [id number] [address] [place] [address], [place] [address] 08 Oct, 2010 [facility] [address] [id number] [address] [place] [address], [place] [address] 15 Sep, 2010 [facility] [address] [id number] [address] [place] [address] Sep, [facility] [address] [id number] [address] [place] [address] Aug, [facility] [address] [id number] [address] [place] [address] March, [facility] [address] [id number] [address] [place] [address] Oct, [facility] [address] [id number] [address] [place] [address] Oct, [facility] [address] [id number] [address] [place] [address] Oct, [facility] [address] [id number] [address] [place] [address] Oct, [facility] [address] [id number] [address] [place] [address] Sep, [facility] [address] [id number] [address] [place] [address] Sep, [facility] [address] [id number] [address] [place] [address] Sep, [facility] [address] [id number] [address] [place] [address] Aug, [facility] [address] [id number] [address] [place] [address] Aug, [facility] [address] [id number] [address] [place] [address] Aug, [facility] [address] [id number] [address] [place] [address] Jan, IMMUNIZATIONS No Known Immunizations SOCIAL HISTORY [...]
--- OUTSIDE RECORDS SUMMARY | 2020-06-13 16:17 | XMS REPORT ---
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 [employer] Name Role Phone REINALDO HASSAN Unavailable PROBLEMS Type Condition ICD9-CM Code NQI34-RD Code Onset Dates Condition S tatus SNOMED Code Problem Pulmonary emphysema, unspecified emphysema type J4 3.9 Active 05556794 Problem Recurrent major depressive disorder, in partial remission F33.41 Active 74419420 Problem Current non-adherence to medical treatment Z91.19 Active 4198328 Problem 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 Active 406261922 Problem Thrombocytosis D47.3 Active 23712 09 Problem Gastroparesis K31.84 Active 701104 006 Problem Anxiety disorder, unspecified type F41.9 Active 706874631 Problem Chronic fatigue R53.82 Active 8422 9001 Problem Hypertriglyceridemia E78.1 Active 959722339 Problem Major depressive disorder, recurrent episode, moderate F33.1 Active 744084607 Problem Hypothyroid E03.9 Active 12195349 Problem Overactive bladder N32.81 Active 2 39771376 Problem Chronic pain G89.29 Active 9336861 1 Problem Neuropathy G62.9 Active 597272795 Problem Irritable bowel syndrome with diarrhea K58.0 Active 241610963 Problem 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 Active 419948750 Problem Mixed hyperlipidemia E78.2 Active 191550164 Problem Type 2 diabetes mellitus with hyperglycemia E11.65 Active 90558997 Problem Gastroesophageal reflux disease with esophagitis K 21.0 Active 960254886 Problem Essential (primary) hypertension I10 Active 16260717 ALLERGIES No Information ENCOUNTERS Encounter Location Date Diagnosis [facility] [address] [facility] [id number] [address] [place] [address] Sep, [facility] [address] [facility] [id number] [address] [place] [address] Sep, Type 2 diabetes mellitus wit h hyperglycemia E11.65 [place] [address] [address] [place] [id number] [address] [place] [address] Sep, Chronic pain G89.29 [place] [address] [facility] [id number] [address] [place] [address] Sep, [place] [address] [place] [address] Sep, Type 2 diabetes mellitus wit h hyperglycemia E11.65 ; Irritable bowel syndrome with diarrhea K58.0 ; Gastroparesis K31.84 ; 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 and Dermatitis L30.9 [place] [address] [facility] [id number] [address] [place] [address] Aug, Chronic pain G89.29 [place] [address] [place] [id number] [address] [place] [address] Jul, Chronic pain G89.29 [place] [address] [place] [id number] [place] [address] Jun, Type 2 diabetes mellitus wit h hyperglycemia E11.65 ; Neuropathy G62.9 ; Recurrent major depressive disorder, in partial remission F33.41 ; Chronic pain G89.29 and Hypertriglyceridemia E78.1 [place] [address] [place] [address] Jun, Hypothyroid E03.9 [place] [address] [place] [id number] [address] [place] [address] Jun, Major depressive disorder, r ecurrent episode, moderate F33.1 and Anxiety disorder, unspecified type F41.9 [place] [address] [place] [id number] [address] [place] [address] Jun, [place] [address] [place] [id number] [place] [address] Jun, Type 2 diabetes mellitus wit h hyperglycemia E11.65 ; correction current use of insulin Z79.4 ; Recurrent major depressive disorder, in partial remission F33.41 ; Hypothyroid E03.9 ; Candidal dermatitis B37.2 and Weakness generalized R53.1 [place] [address] [facility] [id number] [address] [place] [address] May, [facility] [address] [facility] [id number] [address] [place] [address] May, [place] [address] [place] [id number] [address] [place] [address] May, [place] [address] [facility] [id number] [address] [place] [address] May, Generalized abdominal pain R 10.84 and Candidal dermatitis B37.2 [place] [address] [place] [id number] [place] [address] May, [place] [address] [place] [id number] [place] [address] May, [place] [address] [place] [id number] [place] [address] May, Nodular radiologic density R 93.8 ; Weight loss, unintentional R63.4 and Pulmonary emphysema, unspecified emphysema type J43.9 [place] [address] [place] [id number] [place] [address] May, Chronic pain G89.29 [place] [address] [place] [id number] [place] [address] May, Syncope and collapse R55 ; C hronic fatigue R53.[address] lung screening R91.8 [place] [address] [place] [id number] [address] [place] [address] May, [place] [address] [place] [id number] [place] [address] Apr, Chronic fatigue R53.82 ; Abn ormal chest CT R93.8 ; Elevated erythrocyte sedimentation rate R70.0 ; Hypothyroid E03.9 and Recurrent major depressive disorder, in partial remission F33.41 [place] [address] [facility] [id number] [address] [place] [address] Apr, Hypothyroid E03.9 [facility] [address] [facility] [id number] [address] [place] [address] Apr, Depression F32.9 [facility] [address] [facility] [id number] [address] [place] [address] Apr, [facility] [address] [facility] [id number] [address] [place] [address] March, [place] [address] [facility] [id number] [address] [place] [address] March, Hypothyroid E03.9 [place] [address] [facility] [id number] [address] [place] [address] March, Diabetes mellitus E11.9 and Hypothyroid E03.9 [place] [address] [facility] [id number] [address] [place] [address] March, Diabetes mellitus E11.9 [place] [address] [facility] [id number] [address] [place] [address] March, Hypothyroid E03.9 and Elevat ed liver enzymes R74.8 [place] [address] [facility] [id number] [address] [place] [address] March, Type 2 diabetes mellitus wit h hyperglycemia E11.65 ; 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 ; Pulmonary emphysema, unspecified emphysema type J43.9 ; Hypothyroid E03.9 ; Neuropathy G62.9 ; Mixed hyperlipidemia E78.2 ; Chronic pain G89.29 ; Gastroesophageal reflux disease with esophagitis K21.0 ; Irritable bowel syndrome with diarrhea K58.0 ; Overactive bladder N32.81 and Recurrent major depressive disorder, in partial remission F33.41 [facility] [address] [facility] [id number] [address] [place] [address] Feb, Chronic pain G89.29 [place] [address] [facility] [id number] [address] [place] [address] Feb, Type 2 diabetes mellitus wit h hyperglycemia E11.65 and Skin lesion of scalp L98.9 [place] [address] [place] [id number] [address] [place] [address] Feb, [place] [address] [place] [id number] [address] [place] [phone] Jan, Type 2 diabetes mellitus wit h [...] and Irritable bowel syndrome with diarrhea K58.0 [place] [address] [place] [id number] [address] [place] [address] Jan, [place] [address] [place] [address] Jan, Controlled substance agreeme nt signed Z79.899 [place] [address] [place] [id number] [address] [place] [address] Dec, Type 2 diabetes mellitus wit h hyperglycemia E11.65 ; Controlled substance agreement signed Z79.899 ; 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 ; Essential (primary) hypertension I10 ; Hypothyroid E03.9 ; Neuropathy G62.9 ; Depression F32.9 ; Mixed hyperlipidemia E78.2 ; Irritable bowel syndrome with diarrhea K58.0 ; Gastroesophageal reflux disease with esophagitis K21.0 ; Thrombocytosis D47.3 ; Current non-adherence to medical treatment Z91.19 and Overweight (BMI 25.0-29.9) E66.3 [place] [address] [place] [id number] [place] [address] Dec, Controlled substance agreeme nt signed Z79.899 [place] [address] [place] [id number] [address] [place] [address] Nov, Type 2 diabetes mellitus wit h hyperglycemia E11.65 and Current non- adherence to medical treatment Z91.19 [facility] [address] [facility] [id number] [address] [place] [address] Nov, [facility] [address] [facility] [id number] [address] [place] [address] Nov, Chronic pain G89.29 [place] [address] [facility] [id number] [address] [place] [address] Nov, [place] [address] [facility] [id number] [address] [place] [address] Nov, Hypothyroid E03.9 [place] [address] [facility] [id number] [address] [place] [address] Nov, Hypothyroid E03.9 [place] [address] [facility] [id number] [address] [place] [address] Nov, Pulmonary emphysema, unspeci fied emphysema type J43.9 and Irritable bowel syndrome with diarrhea K58.0 [place] [address] [facility] [id number] [address] [place] [address] Oct, [place] [address] [facility] [id number] [address] [place] [phone] Oct, [place] [address] [facility] [id number] [address] [place] [phone] Oct, [place] [address] [facility] [id number] [address] [place] [phone] Oct, [place] [address] [facility] [id number] [address] [place] [phone] Oct, Chronic pain G89.29 [place] [address] [facility] [id number] [address] [place] [address] Oct, Diabetes mellitus E11.9 ; De pression F32.9 ; Mixed hyperlipidemia E78.2 ; Hypotension, unspecified hypotension type I95.9 ; Pulmonary emphysema, unspecified emphysema type J43.9 and Weight loss, unintentional R63.4 [facility] [address] [facility] [id number] [address] [place] [address] Oct, Chronic pain G89.29 [facility] [address] [facility] [id number] [address] [place] [phone] Sep, Chronic pain G89.29 [place] [address] [place] [id number] [address] [place] [address] Sep, Hypothyroid E03.9 and Diabet es mellitus E11.9 [place] [address] [facility] [id number] [address] [place] [address] Aug, Type 2 diabetes mellitus wit h hyperglycemia E11.65 ; 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 ; Essential (primary) hypertension I10 ; Hypothyroid E03.9 ; Neuropathy G62.9 ; Chronic pain G89.29 ; Mixed hy perlipidemia E78.2 and Encounter for immunization Z23 [place] [address] [facility] [id number] [address] [place] [address] Aug, Chronic pain G89.29 [place] [address] [facility] [id number] [address] [place] [address] Aug, Overactive bladder N32.81 ; Diabetes mellitus E11.9 and Chronic pain G89.29 [place] [address] [facility] [id number] [address] [place] [phone] Jul, [place] [address] [facility] [id number] [address] [place] [phone] Jun, [place] [address] [facility] [id number] [address] [place] [address] Jun, [place] [address] [facility] [id number] [address] [place] [phone] Jun, Hypothyroid E03.9 [facility] [address] [facility] [id number] [address] [place] [address] Jun, Diabetes mellitus E11.9 ; Hy pothyroid E03.9 ; Neuropathy G62.9 ; Chronic pain G89.29 and Neck mass R22.1 [facility] [address] [facility] [id number] [address] [place] [phone] Apr, [facility] [address] [facility] [id number] [address] [place] [address] Apr, Acute cystitis without hemat uria N30.00 [facility] [address] [facility] [id number] [address] [place] [address] March, [facility] [address] [facility] [id number] [address] [place] [address] March, [facility] [address] [facility] [id number] [address] [place] [address] March, Near syncope R55 [facility] [address] [facility] [id number] [address] [place] [phone] Feb, [facility] [address] [facility] [id number] [address] [place] [address] Feb, Chronic pain G89.29 [facility] [address] [facility] [id number] [address] [place] [address] Feb, [facility] [address] [facility] [id number] [address] [place] [phone] Feb, [facility] [address] [facility] [id number] [address] [place] [address] Jan, Chronic pain G89.29 [facility] [address] [facility] [id number] [address] [place] [address] Jan, [facility] [address] [facility] [id number] [address] [place] [phone] 16 Jan, 2017 [facility] [address] [facility] [id number] [address] [place] [phone] 14 Jan, 2017 Diabetes mellitus E11.9 ; Hy pothyroid E03.9 ; GERD (gastroesophageal reflux disease) K21.9 ; Insomnia G47.00 ; Functional 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 ; Neuropathy G62.9 ; Depression F32.9 ; Chronic pain G89.29 ; Irritable bowel syndrome with diarrhea K58.0 ; Overactive bladder N32.81 ; Mixed hyperlipidemia E78.2 and Bronchitis J40 [facility] [address] [facility] [id number] [address] [place] [phone] Dec, [facility] [address] [facility] [id number] [address] [place] [address] Dec, [facility] [address] [place] [id number] [address] [place] [address] Dec, [facility] [address] [place] [id number] [place] [address] Dec, [facility] [address] [place] [id number] [address] [place] [address] Dec, Chronic pain G89.29 [facility] [address] [place] [id number] [address] [place] [address] Dec, [facility] [address] [facility] [id number] [address] [place] [address] Dec, [facility] [address] [place] [id number] [address] [place] [address] Dec, Type 2 diabetes mellitus wit h foot ulcer E11.621 [facility] [address] [place] [address] Dec, Type 2 diabetes mellitus wit h foot ulcer E11.621 [facility] [address] [place] [id number] [address] [place] [address] Dec, HTN (hypertension) I10 ; Dep ression F32.9 ; Type 2 diabetes mellitus with foot ulcer E11.621 ; Functional 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 ; Irritable bowel syndrome with diarrhea K58.0 ; Chronic pain G89.29 ; Insomnia G47.00 ; Overactive bladder N32.81 ; Mixed hyperlipidemia E78.2 ; Gastroesophageal reflux disease with esophagitis K21.0 and Acquired hypothyroidism E03.9 [place] [address] [address] Nov, [place] [address] [address] Oct, [place] [address] [address] Oct, [place] [address] [address] Oct, [place] [address] [address] Sep, Functional 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 ; HTN (hypertension) I10 ; Diabetes mellitus E11.9 ; Depression F32.9 ; Overactive bladder N32.81 ; Mixed hyperlipidemia E78.2 ; Gastroesophageal reflux disease without esophagitis K21.9 ; Chronic pain G89.29 ; Insomnia G47.00 and Acquired hypothyroidism E03.9 [place] [address] [address] Sep, [place] [address] [address] Aug, Encounter for immunization Z 23 [place] [address] [address] 06 Aug, 2016 [place] [address] [address] Jul, [place] [address] [address] Jun, Type 2 diabetes mellitus wit hout complications E11.9 ; HTN (hypertension) I10 ; Hypothyroid E03.9 ; Neuropathy G62.9 ; Depression F32.9 ; Chronic pain G89.29 ; GERD (gastroesophageal reflux disease) K21.9 ; Insomnia G47.00 ; Overactive bladder N32.81 ; Mixed hyperlipidemia E78.2 ; Diarrhea of infectious origin A09 and Environmental allergies Z91.09 [place] [address] [address] Apr, [place] [address] [address] March, Hypothyroidism, unspecified E03.9 and Mixed hyperlipidemia E78.2 [place] [address] [address] March, Diabetes mellitus E11.9 ; HT N (hypertension) I10 ; Hypothyroid E03.9 ; Depression F32.9 ; Overactive bladder N32.81 ; Other chronic pain G89.29 ; Lumbago with sciatica, unspecified side M54.40 ; Environmental allergies Z91.09 and Gastroesophageal reflux disease, esophagitis presence not specified K21.9 [place] [address] [address] March, [place] [address] [address] Jan, HTN (hypertension) I10 ; Hyp othyroid E03.9 ; Neuropathy G62.9 ; Diabetes mellitus E11.9 ; Chronic pain G89.29 ; GERD (gastroesophageal reflux disease) K21.9 ; Overactive bladder N32.81 and Depression F32.9 [place] [address] [address] Dec, Ear pain, left H92.02 ; HTN (hypertension) I10 ; Hypothyroid E03.9 ; Neuropathy G62.9 ; Diabetes mellitus E11.9 ; Depression F32.9 ; GERD (gastroesophageal reflux disease) K21.9 ; Insomnia G47.00 and Overactive bladder N32.81 [place] [address] [address] Nov, Overactive bladder N32.81 an d Chronic pain G89.29 [place] [address] [address] Nov, Kidney failure N19 [place] [address] [address] Nov, [place] [address] [address] Nov, [place] [address] [address] Nov, Diabetes mellitus E11.9 ; De pression F32.9 ; Chronic pain G89.29 ; GERD (gastroesophageal reflux disease) K21.9 ; Insomnia G47.00 ; HTN (hypertension) I10 ; Hypothyroid E03.9 ; COPD (chronic obstructive pulmonary disease) J44.9 ; Bladder incontinence R32 and Incontinence R32 [place] [address] [address] Sep, Type 2 diabetes mellitus wit h foot ulcer E11.621 and Chromosomal abnormality, 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 [address] Sep, [place] [address] [address] Aug, [place] [address] [address] Aug, [place] [address] [address] Aug, HTN (hypertension) I10 ; Enc ounter for immunization Z23 ; Hypothyroid E03.9 ; Neuropathy G62.9 ; Diabetes mellitus E11.9 ; Depression F32.9 ; Chronic pain G89.29 ; GERD (gastroesophageal reflux disease) K21.9 ; Insomnia G47.00 and COPD (chronic obstructive pulmonary disease) J44.9 [place] [address] [address] Jun, [place] [address] [address] Jun, [place] [address] [address] May, Essential hypertension, iivs gn 401.1 ; Unspecified hypothyroidism 244.9 ; Insomnia, unspecified 780.52 ; Shortness of breath 786.05 ; Depression 311 ; COPD (chronic obstructive pulmonary disease) 496 ; GERD (gastroesophageal reflux disease) 530.81 and Diabetes 1.5, 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 [facility] [address] [address] May, [facility] [address] [address] May, [facility] [address] [address] May, Shortness of breath 786.05 ; Essential hypertension, benign 401.1 ; Diabetes mellitus 250.00 ; Hyperlipidemia 272.4 ; Hypothyroid 244.9 ; Insomnia 780.52 and Cough 786.2 [place] [address] [address] Apr, [facility] [address] [address] March, Shortness of breath 786.05 ; Nausea with vomiting 787.01 ; Essential hypertension, benign 401.1 ; Diabetes mellitus 250.00 ; Hyperlipidemia 272.4 and Hypothyroid 244.9 [facility] [address] [address] Feb, [facility] [address] [address] Feb, [facility] [address] [place] [id number] [address] [place] [id number] Jan, [facility] [address] [address] Jan, [facility] [address] [address] Jan, [facility] [address] [address] Jan, [facility] [address] [id number] [address] [place] [address], [place] [address] Jan, [facility] [address] [id number] [address] [place] [address], [place] [address] Jan, [facility] [address] [id number] [address] [place] [address], [place] [address] Jan, [facility] [address] [id number] [address] [place] [address], [place] [address] Jan, [facility] [address] [id number] [address] [place] [address], [place] [address] Jan, [facility] [address] [id number] [address] [place] [address], [place] [address] Jan, [facility] [address] [id number] [address] [place] [address], [place] [address] Dec, 2014 [facility] [address] [id number] [address] [place] [address], [place] [address] Dec, 2014 [facility] [address] [id number] [address] [place] [address], [place] [address] Dec, 2014 [facility] [address] [id number] [address] [place] [address], [place] [address] Dec, 2014 [facility] [address] [id number] [address] [place] [address], [place] [address] Dec, 2014 [facility] [address] [id number] [address] [place] [address], [place] [address] Dec, 2014 [facility] [address] [id number] [address] [place] [address], [place] [address] Dec, 2014 [facility] [address] [id number] [address] [place] [address], [place] [address] Dec, 2014 [facility] [address] [id number] [address] [place] [address], [place] [address] Dec, 2014 [facility] [address] [id number] [address] [place] [address], [place] [address] Dec, [facility] [address] [id number] [address] [place] [address], [place] [address] Oct, [facility] [address] [id number] [address] [place] [address], [place] [address] Oct, [facility] [address] [id number] [address] [place] [address], [place] [address] Oct, [facility] [address] [id number] [address] [place] [address], [place] [address] Oct, [facility] [address] [id number] [address] [place] [address], [place] [address] Oct, [facility] [address] [id number] [address] [place] [address], [place] [address] Oct, [facility] [address] [id number] [address] [place] [address], [place] [address] Oct, [facility] [address] [id number] [address] [place] [address], [place] [address] Oct, [facility] [address] [id number] [address] [place] [address], [place] [address] Oct, [facility] [address] [id number] [address] [place] [address], [place] [address] Oct, [facility] [address] [id number] [address] [place] [address], [place] [address] Oct, [facility] [address] [id number] [address] [place] [address], [place] [address] Oct, [facility] [address] [id number] [address] [place] [address], [place] [address] Oct, [facility] [address] [id number] [address] [place] [address], [place] [address] Oct, [facility] [address] [id number] [address] [place] [address], [place] [address] Sep, [facility] [address] [id number] [address] [place] [address], [place] [address] Sep, [facility] [address] [id number] [address] [place] [address], [place] [address] Sep, [facility] [address] [id number] [address] [place] [address], [place] [address] Sep, [facility] [address] [id number] [address] [place] [address], [place] [address] Sep, [facility] [address] [id number] [address] [place] [address], [place] [address] Sep, [facility] [address] [id number] [address] [place] [address], [place] [address] Sep, [facility] [address] [id number] [address] [place] [address], [place] [address] Sep, [facility] [address] [id number] [address] [place] [address], [place] [address] Sep, [facility] [address] [id number] [address] [place] [address], [place] [address] Aug, [facility] [address] [id number] [address] [place] [address], [place] [address] Aug, [facility] [address] [id number] [address] [place] [address], [place] [address] Aug, [facility] [address] [id number] [address] [place] [address], [place] [address] 17 Aug, 2014 [facility] [address] [id number] [address] [place] [address], [place] [address] 16 Aug, 2014 [facility] [address] [id number] [address] [place] [address], [place] [address] 13 Aug, 2014 [facility] [address] [id number] [address] [place] [address], [place] [address] Aug, [facility] [address] [id number] [facility] [address] Aug, [facility] [address] [id number] [address] [place] [address], [place] [address] Aug, [facility] [address] [id number] [address] [place] [address], [place] [address] Jul, [facility] [address] [id number] [address] [place] [address], [place] [address] Jul, [facility] [address] [id number] [address] [place] [address], [place] [address] Jul, [facility] [address] [id number] [address] [place] [address], [place] [address] Jul, [facility] [address] [id number] [address] [place] [address], [place] [address] Jul, [facility] [address] [id number] [address] [place] [address], [place] [address] Jul, [facility] [address] [id number] [address] [place] [address], [place] [address] Jul, [facility] [address] [id number] [address] [place] [address], [place] [address] Jul, [facility] [address] [id number] [address] [place] [address], [place] [address] Jul, [facility] [address] [id number] [address] [place] [address], [place] [address] Jul, [facility] [address] [id number] [address] [place] [address], [place] [address] Jun, [facility] [address] [id number] [address] [place] [address], [place] [address] Jun, [facility] [address] [id number] [address] [place] [address], [place] [address] Jun, [facility] [address] [id number] [address] [place] [address], [place] [address] Jun, [facility] [address] [id number] [facility] [place] [address] Jun, [facility] [address] [id number] [address] [place] [address], [place] [address] Jun, [facility] [address] [id number] [address] [place] [address], [place] [address] Jun, [facility] [address] [id number] [address] [place] [address], [place] [address] Jun, [facility] [address] [id number] [address] [place] [address], [place] [address] Jun, [facility] [address] [id number] [address] [place] [address], [place] [address] Jun, [facility] [address] [id number] [address] [place] [address], [place] [address] Jun, [facility] [address] [id number] [address] [place] [address], [place] [address] Jun, [facility] [address] [id number] [address] [place] [address], [place] [address] May, [facility] [address] [id number] [address] [place] [address], [place] [address] May, [facility] [address] [id number] [address] [place] [address], [place] [address] May, [facility] [address] [id number] [address] [place] [address], [place] [address] May, [facility] [address] [id number] [address] [place] [address], [place] [address] May, [facility] [address] [id number] [address] [place] [address], [place] [address] May, [facility] [address] [id number] [address] [place] [address], [place] [address] March, [facility] [address] [id number] [address] [place] [address], [place] [address] March, [facility] [address] [id number] [address] [place] [address], [place] [address] March, [facility] [address] [id number] [address] [place] [address], [place] [address] March, [facility] [address] [id number] [address] [place] [address], [place] [address] March, [facility] [address] [id number] [address] [place] [address], [place] [address] March, [facility] [address] [id number] [address] [place] [address], [place] [address] Feb, [facility] [address] [id number] [address] [place] [address], [place] [address] Feb, [facility] [address] [id number] [address] [place] [address], [place] [address] Feb, [facility] [address] [id number] [address] [place] [address], [place] [address] Feb, [facility] [address] [id number] [address] [place] [address], [place] [address] Jan, [facility] [address] [id number] [address] [place] [address], [place] [address] Jan, [facility] [address] [id number] [address] [place] [address], [place] [address] Jan, [facility] [address] [id number] [address] [place] [address], [place] [address] Jan, [facility] [address] [id number] [address] [place] [address], [place] [address] Jan, [facility] [address] [id number] [address] [place] [address], [place] [address] Jan, [facility] [address] [id number] [address] [place] [address], [place] [address] Jan, [facility] [address] [id number] [address] [place] [address], [place] [address] Jan, [facility] [address] [id number] [address] [place] [address], [place] [address] Jan, [facility] [address] [id number] [address] [place] [address], [place] [address] Jan, [facility] [address] [id number] [address] [place] [address], [place] [address] Jan, [facility] [address] [id number] [address] [place] [address], [place] [address] Jan, [facility] [address] [id number] [address] [place] [address], [place] [address] Dec, [facility] [address] [id number] [address] [place] [address], [place] [address] Dec, [facility] [address] [id number] [address] [place] [address], [place] [address] Dec, [facility] [address] [id number] [address] [place] [address], [place] [address] Dec, [facility] [address] [id number] [address] [place] [address], [place] [address] Dec, [facility] [address] [id number] [address] [place] [address], [place] [address] Dec, [facility] [address] [id number] [address] [place] [address], [place] [address] Nov, [facility] [address] [id number] [address] [place] [address], [place] [address] Nov, [facility] [address] [id number] [address] [place] [address], [place] [address] Oct, [facility] [address] [id number] [address] [place] [address], [place] [address] Oct, [facility] [address] [id number] [address] [place] [address], [place] [address] Oct, [facility] [address] [id number] [address] [place] [address], [place] [address] Oct, [facility] [address] [id number] [address] [place] [address], [place] [address] Oct, [facility] [address] [id number] [address] [place] [address], [place] [address] Oct, [facility] [address] [id number] [address] [place] [address], [place] [address] Sep, [facility] [address] [id number] [address] [place] [address], [place] [address] Sep, [facility] [address] [id number] [address] [place] [address], [place] [address] Sep, [facility] [address] [id number] [address] [place] [address], [place] [address] Sep, [facility] [address] [id number] [address] [place] [address], [place] [address] Aug, [facility] [address] [id number] [address] [place] [address], [place] [address] Aug, [facility] [address] [id number] [address] [place] [address], [place] [address] Aug, [facility] [address] [id number] [address] [place] [address], [place] [address] 17 Jul, 2013 [facility] [address] [id number] [address] [place] [address], [place] [address] 14 Jul, 2013 [facility] [address] [id number] [address] [place] [address], [place] [address] Jul, [facility] [address] [id number] [address] [place] [address], [place] [address] Jun, [facility] [address] [id number] [address] [place] [address], [place] [address] Jun, [facility] [address] [id number] [address] [place] [address], [place] [address] Jun, [facility] [address] [id number] [address] [place] [address], [place] [address] Apr, [facility] [address] [id number] [address] [place] [address], [place] [address] Apr, [facility] [address] [id number] [address] [place] [address], [place] [address] March, [facility] [address] [id number] [address] [place] [address], [place] [address] March, [facility] [address] [id number] [address] [place] [address], [place] [address] March, [facility] [address] [id number] [address] [place] [address], [place] [address] March, [facility] [address] [id number] [address] [place] [address], [place] [address] Feb, [facility] [address] [id number] [address] [place] [address], [place] [address] Jan, [facility] [address] [id number] [address] [place] [address], [place] [address] Dec, [facility] [address] [id number] [address] [place] [address], [place] [address] Dec, [facility] [address] [id number] [address] [place] [address], [place] [address] 07 Dec, 2012 [facility] [address] [id number] [address] [place] [address], [place] [address] Nov, [facility] [address] [id number] [address] [place] [address], [place] [address] Oct, [facility] [address] [id number] [address] [place] [address], [place] [address] Oct, [facility] [address] [id number] [address] [place] [address], [place] [address] Sep, [facility] [address] [id number] [address] [place] [address], [place] [address] Sep, [facility] [address] [id number] [address] [place] [address], [place] [address] Sep, [facility] [address] [id number] [address] [place] [address], [place] [address] Sep, [facility] [address] [id number] [address] [place] [address], [place] [address] Sep, [facility] [address] [id number] [address] [place] [address], [place] [address] Sep, [facility] [address] [id number] [address] [place] [address], [place] [address] Sep, [facility] [address] [id number] [address] [place] [address], [place] [address] Aug, [facility] [address] [id number] [address] [place] [address], [place] [address] Aug, [facility] [address] [id number] [address] [place] [address], [place] [address] Aug, [facility] [address] [id number] [address] [place] [address] Aug, [facility] [address] [id number] [address] [place] [id number] Aug, [facility] [address] [id number] [address] [place] [address] Aug, [facility] [address] [id number] [address] [place] [address], [place] [address] Aug, [facility] [address] [id number] [address] [place] [id number] Aug, [facility] [address] [id number] [address] [place] [address], [place] [address] Jul, [facility] [address] [id number] [address] [place] [address], [place] [address] Jul, [facility] [address] [id number] [address] [place] [address], [place] [address] Jun, [facility] [address] [id number] [address] [place] [address], [place] [address] May, [facility] [address] [id number] [address] [place] [address], [place] [address] Apr, [facility] [address] [id number] [address] [place] [address], [place] [address] Apr, [facility] [address] [id number] [address] [place] [address], [place] [address] Apr, [facility] [address] [id number] [address] [place] [address], [place] [address] March, [facility] [address] [id number] [address] [place] [address], [place] [address] March, [facility] [address] [id number] [address] [place] [address], [place] [address] March, [facility] [address] [id number] [address] [place] [address], [place] [address] March, [facility] [address] [id number] [address] [place] [address], [place] [address] March, [facility] [address] [id number] [address] [place] [address], [place] [address] March, [facility] [address] [id number] [address] [place] [address], [place] [address] March, [facility] [address] [id number] [address] [place] [address], [place] [address] Jan, [facility] [address] [id number] [address] [place] [address], [place] [address] Jan, [facility] [address] [id number] [address] [place] [address], [place] [address] Jan, [facility] [address] [id number] [address] [place] [address], [place] [address] 13 Jan, 2012 [facility] [address] [id number] [address] [place] [address], [place] [address] Jan, [facility] [address] [id number] [address] [place] [address], [place] [address] 08 Dec, 2011 [facility] [address] [id number] [address] [place] [address], [place] [address] Dec, [facility] [address] [id number] [address] [place] [address], [place] [address] Nov, [facility] [address] [id number] [address] [place] [address], [place] [address] Nov, [facility] [address] [id number] [address] [place] [address], [place] [address] Nov, [facility] [address] [id number] [address] [place] [address], [place] [address] Nov, [facility] [address] [id number] [address] [place] [address], [place] [address] Oct, [facility] [address] [id number] [address] [place] [address], [place] [address] Oct, [facility] [address] [id number] [address] [place] [address], [place] [address] 14 Sep, 2011 [facility] [address] [id number] [address] [place] [address], [place] [address] Sep, [facility] [address] [id number] [address] [place] [address], [place] [address] 10 Sep, 2011 [facility] [address] [id number] [address] [place] [address], [place] [address] May, [facility] [address] [id number] [address] [place] [address], [place] [address] 20 Nov, 2010 [facility] [address] [id number] [address] [place] [id number] 29 Oct, 2010 [facility] [address] [id number] [address] [place] [address], [place] [address] 14 Oct, 2010 [facility] [address] [id number] [address] [place] [id number] 08 Oct, 2010 [facility] [address] [id number] [address] [place] [address], [place] [address] 15 Sep, 2010 [facility] [address] [id number] [address] [place] [id number] 02 Sep, 2010 [facility] [address] [id number] [address] [place] [address], [place] [address] Aug, [facility] [address] [id number] [address] [place] [phone] March, [facility] [address] [id number] [address] [place] [id number] 17 Oct, 2009 [facility] [address] [id number] [address] [place] [id number] 17 Oct, 2009 [facility] [address] [id number] [address] [place] [id number] Oct, [facility] [address] [id number] [address] [place] [id number] Oct, [facility] [address] [id number] [address] [place] [phone] Sep, [facility] [address] [id number] [address] [place] [id number] Sep, [facility] [address] [id number] [address] [place] [id number] 04 Sep, 2009 [facility] [address] [id number] [address] [place] [id number] 27 Aug, 2009 [facility] [address] [id number] [address] [place] [id number] 24 Aug, 2009 [facility] [address] [id number] [address] [address] Aug, [facility] [address] [facility] [id number] [address] [place] [address] Jan, IMMUNIZATIONS No Known Immunizations SOCIAL HISTORY Never Assessed REASON FOR VISIT medication changes PLAN OF CARE VITAL SIGNS MEDICATIONS Medication Instructions Dosage Frequency Start Date End Date Duration S tatus Venlafaxine HCl 75 MG Orally Once a day 1 tablet with food 24h 2 Sep, 30 day(s) Active RESULTS No Results PROCEDURES [...]
--- OUTSIDE RECORDS SUMMARY | 2020-06-13 16:17 | XMS REPORT ---
Author Author Jah HASSAN Organization [facility] Address [address] [place] [address] Care Team Providers Care Die Mounter Name Role Phone REINALDO HASSAN Unavailable PROBLEMS Type Condition ICD9-CM Code QTV72-WX Code Onset Dates Condition S tatus SNOMED Code Problem Pulmonary emphysema, unspecified emphysema type J4 3.9 Active 56089547 Problem Recurrent major depressive disorder, in partial remission F33.41 Active 46820100 Problem Current non-adherence to medical treatment Z91.19 Active 1189223 Problem 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 Active 991826963 Problem Thrombocytosis D47.3 Active 62622 09 Problem Gastroparesis K31.84 Active 842486 006 Problem Anxiety disorder, unspecified type F41.9 Active 803084710 Problem Chronic fatigue R53.82 Active 8422 9001 Problem Hypertriglyceridemia E78.1 Active 968606806 Problem Major depressive disorder, recurrent episode, moderate F33.1 Active 381291660 Problem Hypothyroid E03.9 Active 11514844 Problem Overactive bladder N32.81 Active 2 30223300 Problem Chronic pain G89.29 Active 7412870 1 Problem Neuropathy G62.9 Active 446077332 Problem Irritable bowel syndrome with diarrhea K58.0 Active 145931700 Problem long term current use of insulin Z79.4 Active 361337099 Problem Mixed hyperlipidemia E78.2 Active 016071854 Problem Type 2 diabetes mellitus with hyperglycemia E11.65 Active 35778547 Problem Gastroesophageal reflux disease with esophagitis K 21.0 Active 718633981 Problem Essential (primary) hypertension I10 Active 01719127 ALLERGIES No Information ENCOUNTERS Encounter Location Date Diagnosis [facility] [address] [facility] [id number] [address] [place] [phone] Oct, [facility] [address] [facility] [id number] [address] [place] [address] Sep, [place] [address] [place] [address] Sep, Type 2 diabetes mellitus wit h hyperglycemia E11.65 [place] [address] [facility] [id number] [address] [place] [address] Sep, Chronic pain G89.29 [place] [address] [place] [address] Sep, [place] [address] [place] [id number] [address] [place] [address] Sep, Type 2 diabetes mellitus wit h hyperglycemia E11.65 ; Irritable bowel syndrome with diarrhea K58.0 ; Gastroparesis K31.84 ; 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 and Dermatitis L30.9 [place] [address] [place] [id number] [address] [place] [address] Aug, Chronic pain G89.29 [place] [address] [place] [id number] [address] [place] [address] Jul, Chronic pain G89.29 [place] [address] [address] Jun, Type 2 diabetes mellitus wit h hyperglycemia E11.65 ; Neuropathy G62.9 ; Recurrent major depressive disorder, in partial remission F33.41 ; Chronic pain G89.29 and Hypertriglyceridemia E78.1 [place] [address] [place] [address] Jun, Hypothyroid E03.9 [place] [address] [place] [id number] [address] [place] [phone] Jun, Major depressive disorder, r ecurrent episode, moderate F33.1 and Anxiety disorder, unspecified type F41.9 [place] [address] [place] [id number] [address] [place] [address] Jun, [place] [address] [place] [id number] [address] [place] [address] Jun, Type 2 diabetes mellitus wit h hyperglycemia E11.65 ; long term current use of insulin Z79.4 ; Recurrent major depressive disorder, in partial remission F33.41 ; Hypothyroid E03.9 ; Candidal dermatitis B37.2 and Weakness generalized R53.1 [place] [address] [facility] [id number] [address] [place] [address] May, [place] [address] [facility] [id number] [address] [place] [phone] May, [place] [address] [facility] [id number] [address] [place] [address] May, [place] [address] [facility] [id number] [address] [place] [address] May, Generalized abdominal pain R 10.84 and Candidal dermatitis B37.2 [place] [address] [facility] [id number] [address] [place] [address] May, [place] [address] [facility] [id number] [address] [place] [address] May, [place] [address] [place] [id number] [place] [address] May, Nodular radiologic density R 93.8 ; Weight loss, unintentional R63.4 and Pulmonary emphysema, unspecified emphysema type J43.9 [place] [address] [place] [id number] [address] [place] [address] May, Chronic pain G89.29 [place] [address] [facility] [id number] [address] [place] [address] May, Syncope and collapse R55 ; C hronic fatigue R53.[address] lung screening R91.8 [place] [address] [facility] [id number] [address] [place] [address] May, [place] [address] [place] [id number] [address] [place] [address] Apr, Chronic fatigue R53.82 ; Abn ormal chest CT R93.8 ; Elevated erythrocyte sedimentation rate R70.0 ; Hypothyroid E03.9 and Recurrent major depressive disorder, in partial remission F33.41 [facility] [address] [place] [id number] [address] [place] [address] Apr, Hypothyroid E03.9 [facility] [address] [place] [id number] [address] [place] [address] Apr, Depression F32.9 [facility] [address] [place] [id number] [address] [place] [address] Apr, [facility] [address] [place] [id number] [address] [place] [address] March, [place] [address] [place] [id number] [place] [address] March, Hypothyroid E03.9 [place] [address] [place] [id number] [address] [place] [address] March, Diabetes mellitus E11.9 and Hypothyroid E03.9 [place] [address] [place] [id number] [address] [place] [address] March, Diabetes mellitus E11.9 [place] [address] [place] [id number] [place] [address] March, Hypothyroid E03.9 and Elevat ed liver enzymes R74.8 [place] [address] [address] March, Type 2 diabetes mellitus wit h hyperglycemia E11.65 ; custodial current use of insulin Z79.4 ; Pulmonary emphysema, unspecified emphysema type J43.9 ; Hypothyroid E03.9 ; Neuropathy G62.9 ; Mixed hyperlipidemia E78.2 ; Chronic pain G89.29 ; Gastroesophageal reflux disease with esophagitis K21.0 ; Irritable bowel syndrome with diarrhea K58.0 ; Overactive bladder N32.81 and Recurrent major depressive disorder, in partial remission F33.41 [place] [address] [place] [id number] [address] [place] [address] Feb, Chronic pain G89.29 [place] [address] [place] [id number] [address] [place] [address] Feb, Type 2 diabetes mellitus wit h hyperglycemia E11.65 and Skin lesion of scalp L98.9 [place] [address] [place] [id number] [address] [place] [address] Feb, [place] [address] [address] Jan, Type 2 diabetes mellitus wit h hyperglycemia E11.65 ; long term current use of insulin Z79.4 ; Essential (primary) hypertension I10 ; Pulmonary emphysema, unspecified emphysema type J43.9 ; Chronic pain G89.29 ; Controlled substance agreement signed Z79.899 ; Hypothyroid E03.9 ; Neuropathy G62.9 ; Gastroesophageal reflux disease with esophagitis K21.0 ; Overactive bladder N32.81 ; Depression F32.9 and Irritable bowel syndrome with diarrhea K58.0 [place] [address] [place] [id number] [address] [place] [address] Jan, [place] [address] [address] Jan, Controlled substance agreeme nt signed Z79.899 [place] [address] [place] [id number] [address] [place] [address] Dec, Type 2 diabetes mellitus wit h hyperglycemia E11.65 ; Controlled substance agreement signed Z79.899 ; long term current use of insulin Z79.4 ; Essential (primary) hypertension I10 ; Hypothyroid E03.9 ; Neuropathy G62.9 ; Depression F32.9 ; Mixed hyperlipidemia E78.2 ; Irritable bowel syndrome with diarrhea K58.0 ; Gastroesophageal reflux disease with esophagitis K21.0 ; Thrombocytosis D47.3 ; Current non-adherence to medical treatment Z91.19 and Overweight (BMI 25.0-29.9) E66.3 [place] [address] [place] [id number] [address] [place] [address] 02 Feb, 2018 Controlled substance agreeme nt signed Z79.899 [facility] [address] [facility] [id number] [address] [place] [address] Nov, Type 2 diabetes mellitus wit h hyperglycemia E11.65 and Current non- adherence to medical treatment Z91.19 [facility] [address] [facility] [id number] [address] [place] [phone] Nov, [facility] [address] [facility] [id number] [address] [place] [address] Nov, Chronic pain G89.29 [facility] [address] [facility] [id number] [address] [place] [address] Nov, [facility] [address] [facility] [id number] [address] [place] [address] Nov, Hypothyroid E03.9 [place] [address] [facility] [id number] [address] [place] [address] Nov, Hypothyroid E03.9 [facility] [address] [facility] [id number] [address] [place] [address] Nov, Pulmonary emphysema, unspeci fied emphysema type J43.9 and Irritable bowel syndrome with diarrhea K58.0 [facility] [address] [facility] [id number] [address] [place] [address] Oct, [facility] [address] [facility] [id number] [address] [place] [address] Oct, [facility] [address] [facility] [id number] [address] [place] [address] Oct, [facility] [address] [facility] [id number] [address] [place] [id number] Oct, [place] [address] [facility] [id number] [address] [place] [address] Oct, Chronic pain G89.29 [facility] [address] [facility] [id number] [address] [place] [address] Oct, Diabetes mellitus E11.9 ; De pression F32.9 ; Mixed hyperlipidemia E78.2 ; Hypotension, unspecified hypotension type I95.9 ; Pulmonary emphysema, unspecified emphysema type J43.9 and Weight loss, unintentional R63.4 [place] [id number] [place] [id number] [address] [place] [phone] Oct, Chronic pain G89.29 [place] [address] [place] [id number] [address] [place] [address] Sep, Chronic pain G89.29 [place] [address] [place] [id number] [place] [address] Sep, Hypothyroid E03.9 and Diabet es mellitus E11.9 [place] [address] [place] [id number] [place] [address] Aug, Type 2 diabetes mellitus wit h hyperglycemia E11.65 ; custodial current use of insulin Z79.4 ; Essential (primary) hypertension I10 ; Hypothyroid E03.9 ; Neuropathy G62.9 ; Chronic pain G89.29 ; Mixed hy perlipidemia E78.2 and Encounter for immunization Z23 [place] [address] [address] Aug, Chronic pain G89.29 [place] [address] [place] [id number] [place] [address] Aug, Overactive bladder N32.81 ; Diabetes mellitus E11.9 and Chronic pain G89.29 [place] [address] [place] [id number] [address] [place] [address] Jul, [place] [address] [place] [id number] [address] [place] [address] Jun, [place] [address] [place] [id number] [address] [place] [address] Jun, [place] [address] [place] [id number] [address] [place] [address] Jun, Hypothyroid E03.9 [place] [address] [place] [address] [place] [address] Jun, Diabetes mellitus E11.9 ; Hy pothyroid E03.9 ; Neuropathy G62.9 ; Chronic pain G89.29 and Neck mass R22.1 [facility] [address] [id number] [address] [place] [address] Apr, [facility] [address] [facility] [id number] [address] [place] [id number] Apr, Acute cystitis without hemat uria N30.00 [facility] [address] [id number] [address] [place] [address] March, [facility] [address] [facility] [id number] [address] [place] [id number] March, [facility] [address] [place] [id number] [address] [place] [address] March, Near syncope R55 [facility] [address] [facility] [id number] [address] [place] [phone] Feb, [facility] [address] [facility] [id number] [address] [place] [address] Feb, Chronic pain G89.29 [facility] [address] [facility] [id number] [address] [place] [phone] 17 Feb, 2017 [facility] [address] [facility] [id number] [address] [place] [address] Feb, [facility] [address] [facility] [id number] [address] [place] [phone] 24 Jan, 2017 Chronic pain G89.29 [facility] [address] [facility] [id number] [address] [place] [address] Jan, [facility] [address] [facility] [id number] [address] [place] [id number] 16 Jan, 2017 [facility] [address] [facility] [id number] [address] [place] [address] 14 Jan, 2017 Diabetes mellitus E11.9 ; Hy pothyroid E03.9 ; GERD (gastroesophageal reflux disease) K21.9 ; Insomnia G47.00 ; Functional 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 ; Neuropathy G62.9 ; Depression F32.9 ; Chronic pain G89.29 ; Irritable bowel syndrome with diarrhea K58.0 ; Overactive bladder N32.81 ; Mixed hyperlipidemia E78.2 and Bronchitis J40 [facility] [address] [facility] [id number] [address] [place] [address] Dec, [facility] [address] [facility] [id number] [address] [place] [address] Dec, [place] [address] [facility] [id number] [address] [place] [address] Dec, [place] [address] [place] [id number] [address] [place] [address] Dec, [facility] [address] [place] [id number] [address] [place] [address] Dec, Chronic pain G89.29 [facility] [address] [facility] [id number] [address] [place] [address] Dec, [facility] [address] [place] [id number] [address] [place] [address] Dec, [place] [address] [place] [id number] [address] [place] [address] Dec, Type 2 diabetes mellitus wit h foot ulcer E11.621 [facility] [address] [place] [id number] [address] [place] [address] 17 Dec, 2016 Type 2 diabetes mellitus wit h foot ulcer E11.621 [facility] [address] [place] [id number] [address] [place] [address] 14 Dec, 2016 HTN (hypertension) I10 ; Dep ression F32.9 ; Type 2 diabetes mellitus with foot ulcer E11.621 ; Functional 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 ; Irritable bowel syndrome with diarrhea K58.0 ; Chronic pain G89.29 ; Insomnia G47.00 ; Overactive bladder N32.81 ; Mixed hyperlipidemia E78.2 ; Gastroesophageal reflux disease with esophagitis K21.0 and Acquired hypothyroidism E03.9 [place] [address] [address] Nov, [place] [address] [place] [id number] [place] [address] Oct, [place] [address] [address] Oct, [place] [address] [place] [id number] [place] [address] Oct, [place] [address] [place] [id number] [place] [address] Sep, Functional 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 ; HTN (hypertension) I10 ; Diabetes mellitus E11.9 ; Depression F32.9 ; Overactive bladder N32.81 ; Mixed hyperlipidemia E78.2 ; Gastroesophageal reflux disease without esophagitis K21.9 ; Chronic pain G89.29 ; Insomnia G47.00 and Acquired hypothyroidism E03.9 [place] [address] [address] Sep, [place] [address] [address] Aug, Encounter for immunization Z 23 [place] [address] [address] Aug, [place] [address] [place] [id number] [place] [address] Jul, [place] [address] [address] Jun, Type 2 diabetes mellitus wit hout complications E11.9 ; HTN (hypertension) I10 ; Hypothyroid E03.9 ; Neuropathy G62.9 ; Depression F32.9 ; Chronic pain G89.29 ; GERD (gastroesophageal reflux disease) K21.9 ; Insomnia G47.00 ; Overactive bladder N32.81 ; Mixed hyperlipidemia E78.2 ; Diarrhea of infectious origin A09 and Environmental allergies Z91.09 [place] [address] [address] Apr, [place] [address] [address] March, Hypothyroidism, unspecified E03.9 and Mixed hyperlipidemia E78.2 [place] [address] [address] March, Diabetes mellitus E11.9 ; HT N (hypertension) I10 ; Hypothyroid E03.9 ; Depression F32.9 ; Overactive bladder N32.81 ; Other chronic pain G89.29 ; Lumbago with sciatica, unspecified side M54.40 ; Environmental allergies Z91.09 and Gastroesophageal reflux disease, esophagitis presence not specified K21.9 [place] [address] [address] March, [place] [address] [address] Jan, HTN (hypertension) I10 ; Hyp othyroid E03.9 ; Neuropathy G62.9 ; Diabetes mellitus E11.9 ; Chronic pain G89.29 ; GERD (gastroesophageal reflux disease) K21.9 ; Overactive bladder N32.81 and Depression F32.9 [place] [address] [address] Dec, Ear pain, left H92.02 ; HTN (hypertension) I10 ; Hypothyroid E03.9 ; Neuropathy G62.9 ; Diabetes mellitus E11.9 ; Depression F32.9 ; GERD (gastroesophageal reflux disease) K21.9 ; Insomnia G47.00 and Overactive bladder N32.81 [place] [address] [address] Nov, Overactive bladder N32.81 an d Chronic pain G89.29 [place] [address] [address] Nov, Kidney failure N19 [facility] [address] [place] [id number] [place] [address] Nov, [place] [address] [address] Nov, [place] [address] [address] Nov, Diabetes mellitus E11.9 ; De pression F32.9 ; Chronic pain G89.29 ; GERD (gastroesophageal reflux disease) K21.9 ; Insomnia G47.00 ; HTN (hypertension) I10 ; Hypothyroid E03.9 ; COPD (chronic obstructive pulmonary disease) J44.9 ; Bladder incontinence R32 and Incontinence R32 [place] [address] [address] Sep, Type 2 diabetes mellitus wit h foot ulcer E11.621 and Chromosomal abnormality, 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 [place] [address] [address] Sep, [place] [address] [address] Aug, [place] [address] [address] Aug, [place] [address] [address] Aug, HTN (hypertension) I10 ; Enc ounter for immunization Z23 ; Hypothyroid E03.9 ; Neuropathy G62.9 ; Diabetes mellitus E11.9 ; Depression F32.9 ; Chronic pain G89.29 ; GERD (gastroesophageal reflux disease) K21.9 ; Insomnia G47.00 and COPD (chronic obstructive pulmonary disease) J44.9 [place] [address] [address] Jun, [place] [address] [address] Jun, [facility] [address] [address] May, Essential hypertension, ivis gn 401.1 ; Unspecified hypothyroidism 244.9 ; Insomnia, unspecified 780.52 ; Shortness of breath 786.05 ; Depression 311 ; COPD (chronic obstructive pulmonary disease) 496 ; GERD (gastroesophageal reflux disease) 530.81 and Diabetes 1.5, 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 [place] [address] [address] May, [place] [address] [address] May, [place] [address] [address] May, Shortness of breath 786.05 ; Essential hypertension, benign 401.1 ; Diabetes mellitus 250.00 ; Hyperlipidemia 272.4 ; Hypothyroid 244.9 ; Insomnia 780.52 and Cough 786.2 [place] [address] [address] Apr, [address] [address] March, Shortness of breath 786.05 ; Nausea with vomiting 787.01 ; Essential hypertension, benign 401.1 ; Diabetes mellitus 250.00 ; Hyperlipidemia 272.4 and Hypothyroid 244.9 [place] [address] [address] Feb, [place] [address] [address] Feb, [place] [address] [address] Jan, [facility] [address] [address] Jan, [address] [address] Jan, [facility] [address] [id number] [address] [place] [address], [place] [address] Jan, [facility] [address] [id number] [address] [place] [address], [place] [address] Jan, [facility] [address] [id number] [address] [place] [address], [place] [address] Jan, [facility] [address] [id number] [address] [place] [address], [place] [address] Jan, [facility] [address] [id number] [address] [place] [address], [place] [address] Jan, [facility] [address] [id number] [address] [place] [address], [place] [address] Jan, [facility] [address] [id number] [address] [place] [address], [place] [address] Jan, [facility] [address] [id number] [address] [place] [address], [place] [address] Dec, [facility] [address] [id number] [address] [place] [address], [place] [address] Dec, 2014 [facility] [address] [id number] [address] [place] [address], [place] [address] Dec, 2014 [facility] [address] [id number] [address] [place] [address], [place] [address] Dec, 2014 [facility] [address] [id number] [address] [place] [address] Dec, 2014 [facility] [address] [id number] [address] [place] [address], [place] [address] Dec, 2014 [facility] [address] [id number] [address] [place] [address], [place] [address] Dec, 2014 [facility] [address] [id number] [address] [place] [address], [place] [address] Dec, 2014 [facility] [address] [id number] [address] [place] [address], [place] [address] Dec, [facility] [address] [id number] [address] [place] [address], [place] [address] Dec, [facility] [address] [id number] [address] [place] [address], [place] [address] Oct, [facility] [address] [id number] [address] [place] [address], [place] [address] Oct, [facility] [address] [id number] [address] [place] [address], [place] [address] Oct, [facility] [address] [id number] [address] [place] [address], [place] [address] Oct, [facility] [address] [id number] [address] [place] [place] [address], [place] [address] Oct, [facility] [address] [id number] [address] [place] [address], [place] [address] Oct, [facility] [address] [id number] [address] [place] [address], [place] [address] Oct, [facility] [address] [id number] [address] [place] [address], [place] [address] Oct, [facility] [address] [id number] [address] [place] [address], [place] [address] Oct, [facility] [address] [id number] [address] [place] [address], [place] [address] Oct, [facility] [address] [id number] [address] [place] [address], [place] [address] Oct, [facility] [address] [id number] [address] [place] [address], [place] [address] Oct, [facility] [address] [id number] [address] [place] [address], [place] [address] Oct, [facility] [address] [id number] [address] [place] [address], [place] [address] Oct, [facility] [address] [id number] [address] [place] [address], [place] [address] Sep, [facility] [address] [id number] [address] [place] [address], [place] [address] Sep, [facility] [address] [id number] [address] [place] [address], [place] [address] Sep, [facility] [address] [id number] [address] [place] [address], [place] [address] Sep, [facility] [address] [id number] [address] [place] [address], [place] [address] Sep, [facility] [address] [id number] [address] [place] [address], [place] [address] Sep, [facility] [address] [id number] [address] [place] [address], [place] [address] Sep, [facility] [address] [id number] [address] [place] [address], [place] [address] Sep, [facility] [address] [id number] [address] [place] [address], [place] [address] Sep, [facility] [address] [id number] [address] [place] [address], [place] [address] Aug, [facility] [address] [id number] [address] [place] [address], [place] [address] Aug, [facility] [address] [id number] [address] [place] [address], [place] [address] Aug, [facility] [address] [id number] [address] [place] [address], [place] [address] 17 Aug, 2014 [facility] [address] [id number] [address] [place] [address], [place] [address] 16 Aug, 2014 [facility] [address] [id number] [address] [place] [address], [place] [address] 13 Aug, 2014 [facility] [address] [id number] [address] [place] [address], [place] [address] Aug, [facility] [address] [id number] [address] [place] [address], [place] [address] Aug, [facility] [address] [id number] [address] [place] [address], [place] [address] Aug, [facility] [address] [id number] [address] [place] [address], [place] [address] Jul, [facility] [address] [id number] [address] [place] [address], [place] [address] 29 Jul, 2014 [facility] [address] [id number] [address] [place] [address], [place] [address] Jul, [facility] [address] [id number] [address] [place] [address], [place] [address] Jul, [facility] [address] [id number] [address] [place] [address], [place] [address] Jul, [facility] [address] [id number] [address] [place] [address], [place] [address] Jul, [facility] [address] [id number] [address] [place] [address], [place] [address] Jul, [facility] [address] [id number] [address] [place] [address], [place] [address] Jul, [facility] [address] [id number] [address] [place] [address], [place] [address] Jul, [facility] [address] [id number] [address] [place] [address], [place] [address] Jul, [facility] [address] [id number] [address] [place] [address], [place] [address] Jun, [facility] [address] [id number] [address] [place] [address], [place] [address] Jun, [facility] [address] [id number] [address] [place] [address], [place] [address] Jun, [facility] [address] [id number] [facility] [address] Jun, [facility] [address] [id number] [address] [place] [address], [place] [address] Jun, [facility] [address] [id number] [address] [place] [address], [place] [address] Jun, [facility] [address] [id number] [address] [place] [address], [place] [address] Jun, [facility] [address] [id number] [address] [place] [address], [place] [address] Jun, [facility] [address] [id number] [address] [place] [address], [place] [address] Jun, [facility] [address] [id number] [address] [place] [address], [place] [address] Jun, [facility] [address] [id number] [address] [place] [address], [place] [address] Jun, [facility] [address] [id number] [address] [place] [address], [place] [address] Jun, [facility] [address] [id number] [address] [place] [address], [place] [address] May, [facility] [address] [id number] [address] [place] [address], [place] [address] May, [facility] [address] [id number] [address] [place] [address], [place] [address] May, [facility] [address] [id number] [address] [place] [address], [place] [address] May, [facility] [address] [id number] [address] [place] [address], [place] [address] May, [facility] [address] [id number] [address] [place] [address], [place] [address] May, [facility] [address] [id number] [address] [place] [address], [place] [address] March, [facility] [address] [id number] [address] [place] [address], [place] [address] March, [facility] [address] [id number] [address] [place] [address], [place] [address] March, [facility] [address] [id number] [address] [place] [address], [place] [address] March, [facility] [address] [id number] [address] [place] [address], [place] [address] March, [facility] [address] [id number] [address] [place] [address], [place] [address] March, [facility] [address] [id number] [address] [place] [address], [place] [address] Feb, [facility] [address] [id number] [address] [place] [address], [place] [address] Feb, [facility] [address] [id number] [address] [place] [address], [place] [address] Feb, [facility] [address] [id number] [address] [place] [address], [place] [address] Feb, [facility] [address] [id number] [address] [place] [address], [place] [address] Jan, [facility] [address] [id number] [address] [place] [address], [place] [address] Jan, [facility] [address] [id number] [address] [place] [address], [place] [address] Jan, [facility] [address] [id number] [address] [place] [address], [place] [address] Jan, [facility] [address] [id number] [address] [place] [address], [place] [address] Jan, [facility] [address] [id number] [address] [place] [address], [place] [address] Jan, [facility] [address] [id number] [address] [place] [address], [place] [address] Jan, [facility] [address] [id number] [address] [place] [address], [place] [address] Jan, [facility] [address] [id number] [address] [place] [address], [place] [address] Jan, [facility] [address] [id number] [address] [place] [address], [place] [address] Jan, [facility] [address] [id number] [address] [place] [address], [place] [address] Jan, [facility] [address] [id number] [address] [place] [address], [place] [address] Jan, [facility] [address] [id number] [address] [place] [address], [place] [address] Dec, [facility] [address] [id number] [address] [place] [address], [place] [address] Dec, [facility] [address] [id number] [address] [place] [address], [place] [address] Dec, [facility] [address] [id number] [address] [place] [address], [place] [address] Dec, [facility] [address] [id number] [address] [place] [address], [place] [address] Dec, [facility] [address] [id number] [address] [place] [address], [place] [address] Dec, [facility] [address] [id number] [address] [place] [address], [place] [address] Nov, [facility] [address] [id number] [address] [place] [address], [place] [address] Nov, [facility] [address] [id number] [address] [place] [address], [place] [address] Oct, [facility] [address] [id number] [address] [place] [address], [place] [address] Oct, [facility] [address] [id number] [address] [place] [address], [place] [address] Oct, [facility] [address] [id number] [address] [place] [address], [place] [address] Oct, [facility] [address] [id number] [address] [place] [address], [place] [address] Oct, [facility] [address] [id number] [address] [place] [address], [place] [address] Oct, [facility] [address] [id number] [address] [place] [address], [place] [address] Sep, [facility] [address] [id number] [address] [place] [address], [place] [address] Sep, [facility] [address] [id number] [address] [place] [address], [place] [address] Sep, [facility] [address] [id number] [address] [place] [address], [place] [address] Sep, [facility] [address] [id number] [address] [place] [address], [place] [address] Aug, [facility] [address] [id number] [address] [place] [address], [place] [address] Aug, [facility] [address] [id number] [address] [place] [address], [place] [address] Aug, [facility] [address] [id number] [address] [place] [address] 17 Jul, 2013 [facility] [address] [id number] [address] [place] [address], [place] [address] 14 Jul, 2013 [facility] [address] [id number] [address] [place] [address], [place] [address] 04 Jul, 2013 [facility] [address] [id number] [address] [place] [address], [place] [address] Jun, [facility] [address] [id number] [address] [place] [address], [place] [address] Jun, [facility] [address] [id number] [address] [place] [address], [place] [address] Jun, [facility] [address] [id number] [address] [place] [address], [place] [address] Apr, [facility] [address] [id number] [address] [place] [address], [place] [address] Apr, [facility] [address] [id number] [address] [place] [address], [place] [address] March, [facility] [address] [id number] [address] [place] [address], [place] [address] March, [facility] [address] [id number] [address] [place] [address], [place] [address] March, [facility] [address] [id number] [address] [place] [address], [place] [address] March, [facility] [address] [id number] [address] [place] [address], [place] [address] Feb, [facility] [address] [id number] [address] [place] [address], [place] [address] Jan, [facility] [address] [id number] [address] [place] [address], [place] [address] Dec, [facility] [address] [id number] [address] [place] [address], [place] [address] 08 Dec, 2012 [facility] [address] [id number] [address] [place] [address], [place] [address] Dec, [facility] [address] [id number] [address] [place] [address], [place] [address] Nov, [facility] [address] [id number] [address] [place] [address], [place] [address] Oct, [facility] [address] [id number] [address] [place] [address], [place] [address] Oct, [facility] [address] [id number] [address] [place] [address], [place] [address] Sep, [facility] [address] [id number] [address] [place] [address], [place] [address] Sep, [facility] [address] [id number] [address] [place] [address], [place] [address] Sep, [facility] [address] [id number] [address] [place] [address], [place] [address] Sep, [facility] [address] [id number] [address] [place] [address], [place] [address] Sep, [facility] [address] [id number] [address] [place] [address], [place] [address] Sep, [facility] [address] [id number] [address] [place] [address], [place] [address] Sep, [facility] [address] [id number] [address] [place] [address] Aug, [facility] [address] [id number] [address] [place] [address] Aug, [facility] [address] [id number] [address] [place] [address] Aug, [facility] [address] [id number] [address] [place] [address] Aug, [facility] [address] [id number] [address] [place] [address] Aug, [facility] [address] [id number] [address] [place] [address] Aug, [facility] [address] [id number] [address] [place] [address] Aug, [facility] [address] [id number] [address] [place] [address] Aug, [facility] [address] [id number] [address] [place] [address], [place] [address] Jul, [facility] [address] [id number] [address] [place] [address], [place] [address] Jul, [facility] [address] [id number] [address] [place] [address], [place] [address] Jun, [facility] [address] [id number] [address] [place] [address], [place] [address] May, [facility] [address] [id number] [address] [place] [address], [place] [address] Apr, [facility] [address] [id number] [address] [place] [address], [place] [address] Apr, [facility] [address] [id number] [address] [place] [address], [place] [address] Apr, [facility] [address] [id number] [address] [place] [address], [place] [address] March, [facility] [address] [id number] [address] [place] [address], [place] [address] March, [facility] [address] [id number] [address] [place] [address], [place] [address] March, [facility] [address] [id number] [address] [place] [address], [place] [address] March, [facility] [address] [id number] [address] [place] [address], [place] [address] March, [facility] [address] [id number] [address] [place] [address], [place] [address] March, [facility] [address] [id number] [address] [place] [address], [place] [address] March, [facility] [address] [id number] [address] [place] [address], [place] [address] Jan, [facility] [address] [id number] [address] [place] [address], [place] [address] Jan, [facility] [address] [id number] [address] [place] [address], [place] [address] 20 Jan, 2012 [facility] [address] [id number] [address] [place] [address], [place] [address] 13 Jan, 2012 [facility] [address] [id number] [address] [place] [address], [place] [address] Jan, [facility] [address] [id number] [address] [place] [address], [place] [address] 08 Dec, 2011 [facility] [address] [id number] [address] [place] [address], [place] [address] Dec, [facility] [address] [id number] [address] [place] [address], [place] [address] Nov, [facility] [address] [id number] [address] [place] [address], [place] [address] Nov, [facility] [address] [id number] [address] [place] [address], [place] [address] Nov, [facility] [address] [id number] [address] [place] [address], [place] [address] Nov, [facility] [address] [id number] [address] [place] [address], [place] [address] Oct, [facility] [address] [id number] [address] [place] [address], [place] [address] Oct, [facility] [address] [id number] [address] [place] [address], [place] [address] 14 Sep, 2011 [facility] [address] [id number] [address] [place] [address], [place] [address] Sep, [facility] [address] [id number] [address] [place] [address], [place] [address] 10 Sep, 2011 [facility] [address] [id number] [address] [place] [address], [place] [address] 11 May, 2011 [facility] [address] [id number] [address] [place] [id number] Nov, [facility] [address] [id number] [address] [place] [address], [place] [address] 29 Oct, 2010 [facility] [address] [id number] [address] [place] [address], [place] [address] 14 Oct, 2010 [facility] [address] [id number] [address] [place] [address], [place] [address] 08 Oct, 2010 [facility] [address] [id number] [address] [place] [phone] 15 Sep, 2010 [facility] [address] [id number] [address] [place] [address], [place] [address] Sep, [facility] [address] [id number] [address] [place] [address], [place] [address] Aug, [facility] [address] [id number] [address] [place] [address], [place] [address] March, [facility] [address] [id number] [address] [place] [address], [place] [address] Oct, [facility] [address] [id number] [address] [place] [id number] Oct, [facility] [address] [id number] [address] [place] [address], [place] [address] Oct, [facility] [address] [id number] [address] [place] [id number] Oct, [facility] [address] [id number] [address] [place] [phone] Sep, [facility] [address] [id number] [address] [place] [id number] Sep, [facility] [address] [id number] [address] [place] [id number] 04 Sep, 2009 [facility] [address] [id number] [address] [place] [address], [place] [address] 27 Aug, 2009 [facility] [address] [id number] [address] [address] Aug, [facility] [address] [facility] [id number] [address] [place] [id number] Aug, [facility] [address] [facility] [id number] [address] [place] [phone] Jan, IMMUNIZATIONS No Known Immunizations SOCIAL HISTORY Never Assessed REASON FOR VISIT Medication question PLAN OF CARE VITAL SIGNS MEDICATIONS Unknown [...]
--- OUTSIDE RECORDS SUMMARY | 2020-06-13 16:17 | XMS REPORT ---
Author Author Jah HASSAN Organization [facility] Address [address] [place] [address] Care Team Providers Care Retail Pricing Coordinator Name Role Phone REINALDO HASSAN Unavailable PROBLEMS Type Condition ICD9-CM Code SHJ36-QU Code Onset Dates Condition S tatus SNOMED Code Problem Pulmonary emphysema, unspecified emphysema type J4 3.9 Active 01336276 Problem Recurrent major depressive disorder, in partial remission F33.41 Active 34583831 Problem Current non-adherence to medical treatment Z91.19 Active 2689739 Problem 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 Active 763250456 Problem Thrombocytosis D47.3 Active 89301 09 Problem Gastroparesis K31.84 Active 640978 006 Problem Anxiety disorder, unspecified type F41.9 Active 452797015 Problem Chronic fatigue R53.82 Active 8422 9001 Problem Hypertriglyceridemia E78.1 Active 738248237 Problem Major depressive disorder, recurrent episode, moderate F33.1 Active 410367443 Problem Hypothyroid E03.9 Active 91983364 Problem Overactive bladder N32.81 Active 2 12931725 Problem Chronic pain G89.29 Active 4147243 1 Problem Neuropathy G62.9 Active 499707567 Problem Irritable bowel syndrome with diarrhea K58.0 Active 907022103 Problem 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 Active 743697784 Problem Mixed hyperlipidemia E78.2 Active 395448605 Problem Type 2 diabetes mellitus with hyperglycemia E11.65 Active 13699517 Problem Gastroesophageal reflux disease with esophagitis K 21.0 Active 527494388 Problem Essential (primary) hypertension I10 Active 86591844 ALLERGIES No Information ENCOUNTERS Encounter Location Date Diagnosis [facility] [address] [facility] [id number] [address] [place] [address] 18 Oct, 2018 Chronic pain G89.29 [facility] [address] [facility] [id number] [address] [place] [address] Oct, [place] [address] [facility] [id number] [address] [place] [address] Sep, [place] [address] [facility] [id number] [address] [place] [address] Sep, Type 2 diabetes mellitus wit h hyperglycemia E11.65 [place] [address] [place] [id number] [address] [place] [address] Sep, Chronic pain G89.29 [place] [address] [place] [id number] [address] [place] [address] Sep, [place] [address] [place] [id number] [place] [address] Sep, Type 2 diabetes mellitus wit h hyperglycemia E11.65 ; Irritable bowel syndrome with diarrhea K58.0 ; Gastroparesis K31.84 ; 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 and Dermatitis L30.9 [place] [address] [place] [id number] [address] [place] [address] Aug, Chronic pain G89.29 [place] [address] [place] [id number] [address] [place] [address] Jul, Chronic pain G89.29 [place] [address] [place] [id number] [place] [address] Jun, Type 2 diabetes mellitus wit h hyperglycemia E11.65 ; Neuropathy G62.9 ; Recurrent major depressive disorder, in partial remission F33.41 ; Chronic pain G89.29 and Hypertriglyceridemia E78.1 [place] [address] [place] [id number] [address] [place] [address] Jun, Hypothyroid E03.9 [place] [address] [place] [id number] [address] [place] [address] Jun, Major depressive disorder, r ecurrent episode, moderate F33.1 and Anxiety disorder, unspecified type F41.9 [place] [address] [place] [id number] [address] [place] [address] Jun, [place] [address] [facility] [id number] [address] [place] [address] Jun, Type 2 diabetes mellitus wit h hyperglycemia E11.65 ; retirement current use of insulin Z79.4 ; Recurrent major depressive disorder, in partial remission F33.41 ; Hypothyroid E03.9 ; Candidal dermatitis B37.2 and Weakness generalized R53.1 [place] [address] [facility] [id number] [address] [place] [address] May, [place] [address] [facility] [id number] [address] [place] [address] May, [place] [address] [facility] [id number] [address] [place] [address] May, [place] [address] [facility] [id number] [address] [place] [address] May, Generalized abdominal pain R 10.84 and Candidal dermatitis B37.2 [place] [address] [facility] [id number] [address] [place] [address] May, [place] [address] [facility] [id number] [address] [place] [address] May, [place] [address] [facility] [id number] [address] [place] [address] May, Nodular radiologic density R 93.8 ; Weight loss, unintentional R63.4 and Pulmonary emphysema, unspecified emphysema type J43.9 [place] [address] [facility] [id number] [address] [place] [address] May, Chronic pain G89.29 [place] [address] [facility] [id number] [address] [place] [address] May, Syncope and collapse R55 ; C hronic fatigue R53.[address] lung screening R91.8 [place] [address] [place] [id number] [address] [place] [address] May, [place] [address] [facility] [id number] [address] [place] [address] Apr, Chronic fatigue R53.82 ; Abn ormal chest CT R93.8 ; Elevated erythrocyte sedimentation rate R70.0 ; Hypothyroid E03.9 and Recurrent major depressive disorder, in partial remission F33.41 [facility] [address] [facility] [id number] [address] [place] [address] Apr, Hypothyroid E03.9 [place] [address] [facility] [id number] [address] [place] [address] Apr, Depression F32.9 [place] [address] [facility] [id number] [address] [place] [address] Apr, [place] [address] [facility] [id number] [address] [place] [address] March, [place] [address] [place] [id number] [address] [place] [address] March, Hypothyroid E03.9 [place] [address] [facility] [id number] [address] [place] [address] March, Diabetes mellitus E11.9 and Hypothyroid E03.9 [place] [address] [place] [id number] [address] [place] [address] March, Diabetes mellitus E11.9 [place] [address] [facility] [id number] [address] [place] [address] March, Hypothyroid E03.9 and Elevat ed liver enzymes R74.8 [place] [address] [facility] [id number] [address] [place] [address] March, Type 2 diabetes mellitus wit h [...] major depressive disorder, in partial remission F33.41 [place] [address] [place] [id number] [address] [place] [address] Feb, Chronic pain G89.29 [place] [address] [address] Feb, Type 2 diabetes mellitus wit h hyperglycemia E11.65 and Skin lesion of scalp L98.9 [place] [address] [address] Feb, [place] [address] [place] [id number] [address] [place] [address] Jan, Type 2 diabetes mellitus wit h [...] and Irritable bowel syndrome with diarrhea K58.0 [place] [address] [address] Jan, [place] [address] [place] [id number] [address] [place] [address] Jan, Controlled substance agreeme nt signed Z79.899 [place] [address] [place] [id number] [address] [place] [address] Dec, Type 2 diabetes mellitus wit h [...] and Overweight (BMI 25.0-29.9) E66.3 [place] [address] [facility] [id number] [address] [place] [address] Dec, Controlled substance agreeme nt signed Z79.899 [facility] [address] [facility] [id number] [address] [place] [address] Nov, Type 2 diabetes mellitus wit h hyperglycemia E11.65 and Current non- adherence to medical treatment Z91.19 [place] [address] [facility] [id number] [address] [place] [address] Nov, [place] [address] [place] [id number] [address] [place] [address] Nov, Chronic pain G89.29 [place] [address] [place] [id number] [address] [place] [address] Nov, [place] [address] [place] [id number] [address] [place] [address] Nov, Hypothyroid E03.9 [place] [address] [facility] [id number] [address] [place] [address] Nov, Hypothyroid E03.9 [place] [address] [place] [id number] [address] [place] [address] Nov, Pulmonary emphysema, unspeci fied emphysema type J43.9 and Irritable bowel syndrome with diarrhea K58.0 [place] [address] [place] [id number] [address] [place] [address] Oct, [place] [address] [place] [id number] [address] [place] [address] Oct, [place] [address] [facility] [id number] [address] [place] [address] Oct, [place] [address] [place] [id number] [address] [place] [address] Oct, [place] [address] [place] [id number] [address] [place] [address] Oct, Chronic pain G89.29 [place] [address] [facility] [id number] [address] [place] [address] Oct, Diabetes mellitus E11.9 ; De pression F32.9 ; Mixed hyperlipidemia E78.2 ; Hypotension, unspecified hypotension type I95.9 ; Pulmonary emphysema, unspecified emphysema type J43.9 and Weight loss, unintentional R63.4 [place] [address] [address] Oct, Chronic pain G89.29 [place] [address] [place] [id number] [address] [place] [address] Sep, Chronic pain G89.29 [place] [address] [address] Sep, Hypothyroid E03.9 and Diabet es mellitus E11.9 [place] [address] [address] Aug, Type 2 diabetes mellitus wit h hyperglycemia E11.65 ; 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 ; Essential (primary) hypertension I10 ; Hypothyroid E03.9 ; Neuropathy G62.9 ; Chronic pain G89.29 ; Mixed hy perlipidemia E78.2 and Encounter for immunization Z23 [place] [address] [place] [id number] [address] [place] [address] Aug, Chronic pain G89.29 [place] [address] [place] [id number] [address] [place] [address] Aug, Overactive bladder N32.81 ; Diabetes mellitus E11.9 and Chronic pain G89.29 [place] [address] [place] [id number] [address] [place] [address] Jul, [place] [address] [place] [id number] [address] [place] [address] Jun, [place] [address] [place] [id number] [address] [place] [address] Jun, [place] [address] [place] [id number] [place] [address] Jun, Hypothyroid E03.9 [facility] [address] [facility] [id number] [address] [place] [address] Jun, Diabetes mellitus E11.9 ; Hy pothyroid E03.9 ; Neuropathy G62.9 ; Chronic pain G89.29 and Neck mass R22.1 [facility] [address] [facility] [id number] [address] [place] [address] Apr, [facility] [address] [facility] [id number] [address] [place] [address] Apr, Acute cystitis without hemat uria N30.00 [facility] [address] [facility] [id number] [address] [place] [address] March, [facility] [address] [facility] [id number] [address] [place] [address] March, [facility] [address] [facility] [id number] [address] [place] [address] March, Near syncope R55 [facility] [address] [facility] [id number] [address] [place] [address] Feb, [facility] [address] [facility] [id number] [address] [place] [address] Feb, Chronic pain G89.29 [facility] [address] [facility] [id number] [address] [place] [address] Feb, [facility] [address] [facility] [id number] [address] [place] [address] Feb, [facility] [address] [facility] [id number] [address] [place] [address] Jan, Chronic pain G89.29 [facility] [address] [facility] [id number] [address] [place] [address] Jan, [facility] [address] [facility] [id number] [address] [place] [address] Jan, [facility] [address] [address] 14 Jan, 2017 Diabetes mellitus E11.9 ; Hy pothyroid E03.9 ; GERD (gastroesophageal reflux disease) K21.9 ; Insomnia G47.00 ; Functional 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 ; Neuropathy G62.9 ; Depression F32.9 ; Chronic pain G89.29 ; Irritable bowel syndrome with diarrhea K58.0 ; Overactive bladder N32.81 ; Mixed hyperlipidemia E78.2 and Bronchitis J40 [facility] [address] [address] Dec, [place] [address] [address] Dec, [place] [address] [address] Dec, [facility] [address] [address] Dec, [facility] [address] [address] Dec, Chronic pain G89.29 [facility] [address] [address] 23 Dec, 2016 [facility] [address] [address] 20 Dec, 2016 [facility] [address] [address] Dec, Type 2 diabetes mellitus wit h foot ulcer E11.621 [facility] [address] [address] 17 Dec, 2016 Type 2 diabetes mellitus wit h foot ulcer E11.621 [facility] [address] [place] [id number] [address] [place] [address] 14 Dec, 2016 HTN (hypertension) I10 ; Dep ression F32.9 ; Type 2 diabetes mellitus with foot ulcer E11.621 ; Functional 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 ; Irritable bowel syndrome with diarrhea K58.0 ; Chronic pain G89.29 ; Insomnia G47.00 ; Overactive bladder N32.81 ; Mixed hyperlipidemia E78.2 ; Gastroesophageal reflux disease with esophagitis K21.0 and Acquired hypothyroidism E03.9 [place] [address] [place] [id number] [address] [place] [address] Nov, [place] [address] [place] [id number] [place] [address] Oct, [place] [address] [place] [id number] [place] [address] Oct, [place] [address] [place] [id number] [place] [address] Oct, [place] [address] [place] [id number] [place] [address] Sep, Functional 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 ; HTN (hypertension) I10 ; Diabetes mellitus E11.9 ; Depression F32.9 ; Overactive bladder N32.81 ; Mixed hyperlipidemia E78.2 ; Gastroesophageal reflux disease without esophagitis K21.9 ; Chronic pain G89.29 ; Insomnia G47.00 and Acquired hypothyroidism E03.9 [place] [address] [place] [id number] [address] [place] [address] Sep, [place] [address] [place] [id number] [place] [address] Aug, Encounter for immunization Z 23 [place] [address] [place] [id number] [address] [place] [address] Aug, [place] [address] [place] [id number] [place] [address] Jul, [place] [address] [place] [id number] [address] [place] [address] Jun, Type 2 diabetes mellitus wit hout complications E11.9 ; HTN (hypertension) I10 ; Hypothyroid E03.9 ; Neuropathy G62.9 ; Depression F32.9 ; Chronic pain G89.29 ; GERD (gastroesophageal reflux disease) K21.9 ; Insomnia G47.00 ; Overactive bladder N32.81 ; Mixed hyperlipidemia E78.2 ; Diarrhea of infectious origin A09 and Environmental allergies Z91.09 [place] [address] [address] Apr, [place] [address] [address] March, Hypothyroidism, unspecified E03.9 and Mixed hyperlipidemia E78.2 [place] [address] [address] March, Diabetes mellitus E11.9 ; HT N (hypertension) I10 ; Hypothyroid E03.9 ; Depression F32.9 ; Overactive bladder N32.81 ; Other chronic pain G89.29 ; Lumbago with sciatica, unspecified side M54.40 ; Environmental allergies Z91.09 and Gastroesophageal reflux disease, esophagitis presence not specified K21.9 [place] [address] [address] March, [place] [address] [address] Jan, HTN (hypertension) I10 ; Hyp othyroid E03.9 ; Neuropathy G62.9 ; Diabetes mellitus E11.9 ; Chronic pain G89.29 ; GERD (gastroesophageal reflux disease) K21.9 ; Overactive bladder N32.81 and Depression F32.9 [place] [address] [address] 12 Dec, 2015 Ear pain, left H92.02 ; HTN (hypertension) I10 ; Hypothyroid E03.9 ; Neuropathy G62.9 ; Diabetes mellitus E11.9 ; Depression F32.9 ; GERD (gastroesophageal reflux disease) K21.9 ; Insomnia G47.00 and Overactive bladder N32.81 [place] [address] [address] Nov, Overactive bladder N32.81 an d Chronic pain G89.29 [place] [address] [address] Nov, Kidney failure N19 [place] [address] [place] [id number] [address] [place] [address] Nov, [place] [address] [address] Nov, [place] [address] [address] Nov, Diabetes mellitus E11.9 ; De pression F32.9 ; Chronic pain G89.29 ; GERD (gastroesophageal reflux disease) K21.9 ; Insomnia G47.00 ; HTN (hypertension) I10 ; Hypothyroid E03.9 ; COPD (chronic obstructive pulmonary disease) J44.9 ; Bladder incontinence R32 and Incontinence R32 [place] [address] [address] Sep, Type 2 diabetes mellitus wit h foot ulcer E11.621 and Chromosomal abnormality, 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 [place] [address] [address] Sep, [place] [address] [address] Aug, [place] [address] [address] Aug, [place] [address] [address] Aug, HTN (hypertension) I10 ; Enc ounter for immunization Z23 ; Hypothyroid E03.9 ; Neuropathy G62.9 ; Diabetes mellitus E11.9 ; Depression F32.9 ; Chronic pain G89.29 ; GERD (gastroesophageal reflux disease) K21.9 ; Insomnia G47.00 and COPD (chronic obstructive pulmonary disease) J44.9 [place] [address] [address] Jun, [facility] [address] [place] [id number] [address] [place] [address] Jun, [facility] [address] [address] May, Essential hypertension, ivis gn 401.1 ; Unspecified hypothyroidism 244.9 ; Insomnia, unspecified 780.52 ; Shortness of breath 786.05 ; Depression 311 ; COPD (chronic obstructive pulmonary disease) 496 ; GERD (gastroesophageal reflux disease) 530.81 and Diabetes 1.5, 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 [facility] [address] [address] May, [facility] [address] [address] May, [facility] [address] [address] May, Shortness of breath 786.05 ; Essential hypertension, benign 401.1 ; Diabetes mellitus 250.00 ; Hyperlipidemia 272.4 ; Hypothyroid 244.9 ; Insomnia 780.52 and Cough 786.2 [facility] [address] [place] [id number] [address] [place] [address] Apr, [facility] [address] [place] [id number] [address] [place] [address] March, Shortness of breath 786.05 ; Nausea with vomiting 787.01 ; Essential hypertension, benign 401.1 ; Diabetes mellitus 250.00 ; Hyperlipidemia 272.4 and Hypothyroid 244.9 [facility] [address] [place] [id number] [address] [place] [address] Feb, [facility] [address] [address] Feb, [facility] [address] [place] [id number] [address] [place] [address] Jan, [facility] [address] [address] Jan, [facility] [address] [id number] [address] [place] [address], [place] [address] Jan, [facility] [address] [id number] [address] [place] [address] Jan, [facility] [address] [id number] [address] [place] [address], [place] [address] Jan, [facility] [address] [id number] [address] [place] [address] Jan, [facility] [address] [id number] [address] [place] [address], [place] [address] Jan, [facility] [address] [id number] [address] [place] [address] Jan, [facility] [address] [id number] [address] [place] [address] Jan, [facility] [address] [id number] [address] [place] [address] Jan, [facility] [address] [id number] [address] [place] [address] Dec, [facility] [address] [id number] [address] [place] [address] Dec, [facility] [address] [id number] [address] [place] [address] Dec, 2014 [facility] [address] [id number] [address] [place] [address] Dec, 2014 [facility] [address] [id number] [address] [place] [address] Dec, 2014 [facility] [address] [id number] [address] [place] [id number] Dec, 2014 [facility] [address] [id number] [address] [place] [id number] Dec, 2014 [facility] [address] [id number] [address] [place] [address], [place] [address] Dec, 2014 [facility] [address] [id number] [address] [place] [address], [place] [address] Dec, 2014 [facility] [address] [id number] [address] [place] [address], [place] [address] Dec, 2014 [facility] [address] [id number] [address] [place] [address], [place] [address] Oct, [facility] [address] [id number] [address] [place] [address], [place] [address] Oct, [facility] [address] [id number] [address] [place] [address], [place] [address] Oct, [facility] [address] [id number] [address] [place] [address], [place] [address] Oct, [facility] [address] [id number] [address] [place] [address], [place] [address] Oct, [facility] [address] [id number] [address] [place] [address], [place] [address] Oct, [facility] [address] [id number] [address] [place] [address], [place] [address] Oct, [facility] [address] [id number] [address] [place] [address], [place] [address] Oct, [facility] [address] [id number] [address] [place] [address], [place] [address] Oct, [facility] [address] [id number] [address] [place] [address], [place] [address] Oct, [facility] [address] [id number] [address] [place] [address], [place] [address] Oct, [facility] [address] [id number] [address] [place] [address], [place] [address] Oct, [facility] [place] [facility] [address] [id number] [address] [place] [address] Oct, [facility] [place] [facility] [address] [id number] [address] [place] [address], [place] [address] Oct, [facility] [place] [facility] [address] [id number] [address] [place] [address], [place] [address] Sep, [facility] [place] [facility] [address] [id number] [address] [place] [address], [place] [address] Sep, [facility] [place] [facility] [address] [id number] [address] [place] [address], [place] [address] Sep, [facility] [place] [facility] [address] [id number] [address] [place] [address], [place] [address] Sep, [facility] [place] [facility] [address] [id number] [address] [place] [address], [place] [address] Sep, [facility] [place] [facility] [address] [id number] [address] [place] [address], [place] [address] Sep, [facility] [place] [facility] [address] [id number] [address] [place] [address], [place] [address] Sep, [facility] [place] [facility] [address] [id number] [address] [place] [address], [place] [address] Sep, [facility] [place] [facility] [address] [id number] [address] [place] [address], [place] [address] Sep, [facility] [place] [facility] [address] [id number] [address] [place] [address], [place] [address] Aug, [facility] [place] [facility] [address] [id number] [address] [place] [address] Aug, [facility] [place] [facility] [address] [id number] [address] [place] [address], [place] [address] Aug, [facility] [place] [facility] [address] [id number] [address] [place] [address], [place] [address] Aug, [facility] [place] [facility] [address] [id number] [address] [place] [address], [place] [address] 16 Aug, 2014 [facility] [place] [facility] [address] [id number] [facility] [place] [address] Aug, [facility] [place] [facility] [address] [id number] [address] [place] [address], [place] [address] Aug, [facility] [place] [facility] [address] [id number] [address] [place] [address], [place] [address] Aug, [facility] [place] [facility] [address] [id number] [address] [place] [address], [place] [address] Aug, [facility] [place] [facility] [address] [id number] [address] [place] [address], [place] [address] 29 Jul, 2014 [facility] [place] [facility] [address] [id number] [address] [place] [address], [place] [address] 29 Jul, 2014 [facility] [place] [facility] [address] [id number] [address] [place] [address], [place] [address] Jul, [facility] [place] [facility] [address] [id number] [address] [place] [address], [place] [address] Jul, 2013 [facility] [place] [facility] [address] [id number] [address] [place] [address], [place] [address] Jul, [facility] [place] [facility] [address] [id number] [address] [place] [address], [place] [address] Jul, [facility] [place] [facility] [address] [id number] [address] [place] [address], [place] [address] Jul, [facility] [place] [facility] [address] [id number] [address] [place] [address], [place] [address] Jul, [facility] [place] [facility] [address] [id number] [address] [place] [address], [place] [address] Jul, [facility] [place] [facility] [address] [id number] [address] [place] [address], [place] [address] Jul, [facility] [place] [facility] [address] [id number] [address] [place] [address], [place] [address] Jun, [facility] [place] [facility] [address] [id number] [address] [place] [address], [place] [address] Jun, [facility] [place] [facility] [address] [id number] [facility] [place] [address] Jun, [facility] [place] [facility] [address] [id number] [facility] [place] [address] Jun, [facility] [place] [facility] [address] [id number] [facility] [place] [address] Jun, [facility] [place] [facility] [address] [id number] [facility] [place] [address] Jun, [facility] [place] [facility] [address] [id number] [facility] [place] [address] Jun, [facility] [place] [facility] [address] [id number] [address] [place] [address], [place] [address] Jun, [facility] [place] [facility] [address] [id number] [address] [place] [address], [place] [address] Jun, [facility] [place] [facility] [address] [id number] [address] [place] [address], [place] [address] Jun, [facility] [place] [facility] [address] [id number] [address] [place] [address], [place] [address] Jun, [facility] [place] [facility] [address] [id number] [address] [place] [address], [place] [address] Jun, [facility] [place] [facility] [address] [id number] [address] [place] [address], [place] [address] May, [facility] [place] [facility] [address] [id number] [address] [place] [address], [place] [address] May, [facility] [place] [facility] [address] [id number] [address] [place] [address], [place] [address] May, [facility] [place] [facility] [address] [id number] [address] [place] [address], [place] [address] May, [facility] [place] [facility] [address] [id number] [facility] [place] [address] May, [facility] [place] [facility] [address] [id number] [address] [address] May, [facility] [address] [id number] [address] [place] [address], [place] [address] March, [facility] [address] [id number] [address] [place] [address], [place] [address] March, [facility] [address] [id number] [address] [place] [address], [place] [address] March, [facility] [address] [id number] [address] [place] [address], [place] [address] March, [facility] [address] [id number] [address] [place] [address], [place] [address] March, [facility] [address] [id number] [address] [place] [address], [place] [address] March, [facility] [address] [id number] [address] [place] [address], [place] [address] Feb, [facility] [address] [id number] [address] [place] [address], [place] [address] Feb, [facility] [address] [id number] [address] [place] [address], [place] [address] Feb, [facility] [address] [id number] [address] [place] [address], [place] [address] Feb, [facility] [address] [id number] [address] [place] [address], [place] [address] Jan, [facility] [address] [id number] [address] [place] [address], [place] [address] Jan, [facility] [place] [facility] [address] [id number] [address] [place] [address], [place] [address] Jan, [facility] [address] [id number] [address] [place] [address], [place] [address] Jan, [facility] [address] [id number] [address] [place] [address], [place] [address] Jan, [facility] [address] [id number] [address] [place] [address], [place] [address] Jan, [facility] [address] [id number] [address] [place] [address], [place] [address] Jan, [facility] [address] [id number] [address] [place] [address], [place] [address] Jan, [facility] [address] [id number] [address] [place] [address], [place] [address] Jan, [facility] [address] [id number] [address] [place] [address], [place] [address] Jan, [facility] [address] [id number] [address] [place] [address], [place] [address] Jan, [facility] [address] [id number] [address] [place] [address], [place] [address] Jan, [facility] [address] [id number] [address] [place] [address], [place] [address] Dec, [facility] [address] [id number] [address] [place] [address], [place] [address] Dec, [facility] [address] [id number] [address] [place] [address], [place] [address] Dec, [facility] [address] [id number] [address] [place] [address], [place] [address] Dec, [facility] [address] [id number] [address] [place] [address], [place] [address] Dec, [facility] [address] [id number] [address] [place] [address], [place] [address] Dec, [facility] [address] [id number] [address] [place] [address], [place] [address] Nov, [facility] [place] [facility] [address] [id number] [address] [place] [address], [place] [address] Nov, [facility] [address] [id number] [address] [place] [address], [place] [address] 13 Oct, 2013 [facility] [address] [id number] [address] [place] [address], [place] [address] 13 Oct, 2013 [facility] [address] [id number] [address] [place] [address], [place] [address] Oct, [facility] [address] [id number] [address] [place] [address], [place] [address] Oct, [facility] [address] [id number] [address] [place] [address], [place] [address] Oct, [facility] [address] [id number] [address] [place] [address], [place] [address] Oct, [facility] [address] [id number] [address] [place] [address], [place] [address] Sep, [facility] [address] [id number] [address] [place] [address], [place] [address] Sep, [facility] [address] [id number] [address] [place] [address], [place] [address] Sep, [facility] [address] [id number] [address] [place] [address], [place] [address] Sep, [facility] [address] [id number] [address] [place] [address], [place] [address] Aug, [facility] [address] [id number] [address] [place] [address], [place] [address] Aug, [facility] [address] [id number] [address] [place] [address], [place] [address] 08 Aug, 2013 [facility] [address] [id number] [address] [place] [address], [place] [address] 17 Jul, 2013 [facility] [address] [id number] [address] [place] [address], [place] [address] 14 Jul, 2013 [facility] [address] [id number] [address] [place] [address], [place] [address] 04 Jul, 2013 [facility] [address] [id number] [address] [place] [address], [place] [address] Jun, [facility] [address] [id number] [address] [place] [address], [place] [address] Jun, [facility] [address] [id number] [address] [place] [address], [place] [address] Jun, [facility] [address] [id number] [address] [place] [address], [place] [address] Apr, [facility] [address] [id number] [address] [place] [address], [place] [address] Apr, [facility] [address] [id number] [address] [place] [address], [place] [address] March, [facility] [address] [id number] [address] [place] [address], [place] [address] March, [facility] [address] [id number] [address] [place] [address], [place] [address] March, [facility] [address] [id number] [address] [place] [address], [place] [address] March, [facility] [address] [id number] [address] [place] [address], [place] [address] Feb, [facility] [address] [id number] [address] [place] [address], [place] [address] Jan, [facility] [address] [id number] [address] [place] [address], [place] [address] Dec, [facility] [address] [id number] [address] [place] [address], [place] [address] Dec, [facility] [address] [id number] [address] [place] [address], [place] [address] Dec, [facility] [address] [id number] [address] [place] [address], [place] [address] Nov, [facility] [address] [id number] [address] [place] [address] Oct, [facility] [place] [facility] [address] [id number] [address] [place] [address], [place] [address] Oct, [facility] [place] [facility] [address] [id number] [address] [place] [address] Sep, [facility] [place] [facility] [address] [id number] [address] [place] [address], [place] [address] Sep, [facility] [place] [facility] [address] [id number] [address] [place] [address] Sep, [facility] [place] [facility] [address] [id number] [address] [place] [address], [place] [address] Sep, [facility] [place] [facility] [address] [id number] [address] [place] [address], [place] [address] Sep, [facility] [address] [id number] [address] [place] [address], [place] [address] Sep, [facility] [place] [facility] [address] [id number] [address] [place] [address] Sep, [facility] [address] [id number] [address] [place] [address] Aug, [facility] [place] [facility] [address] [id number] [address] [place] [address] Aug, [facility] [place] [facility] [address] [id number] [address] [place] [address] Aug, [facility] [place] [facility] [address] [id number] [address] [place] [address] Aug, [facility] [place] [facility] [address] [id number] [address] [place] [address] Aug, [facility] [place] [facility] [address] [id number] [address] [place] [address] Aug, [facility] [place] [facility] [address] [id number] [address] [place] [address] Aug, [facility] [place] [facility] [address] [id number] [address] [place] [address], [place] [address] Aug, [facility] [address] [id number] [address] [place] [address], [place] [address] Jul, [facility] [address] [id number] [address] [place] [address], [place] [address] Jul, [facility] [address] [id number] [address] [place] [address], [place] [address] Jun, [facility] [address] [id number] [address] [place] [address], [place] [address] May, [facility] [address] [id number] [address] [place] [address], [place] [address] Apr, [facility] [address] [id number] [address] [place] [address], [place] [address] Apr, [facility] [address] [id number] [address] [place] [address], [place] [address] Apr, [facility] [address] [id number] [address] [place] [address], [place] [address] March, [facility] [address] [id number] [address] [place] [address], [place] [address] March, [facility] [address] [id number] [address] [place] [address], [place] [address] March, [facility] [address] [id number] [address] [place] [address], [place] [address] March, [facility] [address] [id number] [address] [place] [address], [place] [address] March, [facility] [address] [id number] [address] [place] [address], [place] [address] March, [facility] [address] [id number] [address] [place] [address], [place] [address] March, [facility] [address] [id number] [address] [place] [address], [place] [address] Jan, [facility] [address] [id number] [facility] [place] [address] 21 Jan, 2012 [facility] [address] [id number] [address] [place] [address], [place] [address] 20 Jan, 2012 [facility] [address] [id number] [address] [place] [address], [place] [address] 13 Jan, 2012 [facility] [address] [id number] [address] [place] [address], [place] [address] Jan, [facility] [address] [id number] [address] [place] [address], [place] [address] 08 Dec, 2011 [facility] [address] [id number] [address] [place] [address], [place] [address] 06 Dec, 2011 [facility] [address] [id number] [address] [place] [address], [place] [address] Nov, [facility] [address] [id number] [address] [place] [address], [place] [address] Nov, [facility] [address] [id number] [address] [place] [address], [place] [address] Nov, [facility] [address] [id number] [address] [place] [address], [place] [address] Nov, [facility] [address] [id number] [address] [place] [address], [place] [address] Oct, [facility] [address] [id number] [address] [place] [address], [place] [address] Oct, [facility] [address] [id number] [address] [place] [address], [place] [address] 14 Sep, 2011 [facility] [address] [id number] [address] [place] [address], [place] [address] 10 Sep, 2011 [facility] [address] [id number] [address] [place] [address], [place] [address] 10 Sep, 2011 [facility] [address] [id number] [address] [place] [address], [place] [address] 11 May, 2011 [facility] [address] [id number] [address] [place] [address], [place] [address] 20 Nov, 2010 [facility] [address] [id number] [address] [place] [address], [place] [address] 29 Oct, 2010 [facility] [address] [id number] [address] [place] [address], [place] [address] 14 Oct, 2010 [facility] [address] [id number] [address] [place] [address], [place] [address] 08 Oct, 2010 [facility] [address] [id number] [address] [place] [address], [place] [address] 15 Sep, 2010 [facility] [address] [id number] [address] [place] [address], [place] [address] Sep, [facility] [address] [id number] [address] [place] [address], [place] [address] Aug, [facility] [address] [id number] [address] [place] [address], [place] [address] March, [facility] [address] [id number] [address] [place] [address], [place] [address] Oct, [facility] [address] [id number] [address] [place] [address], [place] [address] 17 Oct, 2009 [facility] [address] [id number] [address] [place] [address], [place] [address] Oct, [facility] [address] [id number] [address] [place] [address], [place] [address] Oct, [facility] [address] [id number] [address] [place] [address], [place] [address] Sep, [facility] [address] [id number] [address] [place] [address], [place] [address] Sep, [facility] [address] [id number] [address] [place] [address], [place] [address] Sep, [facility] [address] [facility] [id number] [address] [place] [phone] Aug, [facility] [address] [facility] [id number] [address] [place] [address] Aug, [facility] [address] [facility] [id number] [address] [place] [phone] Aug, [facility] [address] [facility] [id number] [address] [place] [phone] Jan, IMMUNIZATIONS No Known Immunizations SOCIAL HISTORY Never Assessed REASON FOR VISIT Controlled Med Refill 10/30 PLAN OF CARE VITAL SIGNS MEDICATIONS Medication Instructions Dosage Frequency Start Date End Date Duration S gato Hydrocodone-Acetaminophen 5-325 MG Orally 3 times a day 1 tablet as needed 8h Oct, 28 days Active RESULTS No Results PROCEDURES No Known [...]
--- OUTSIDE RECORDS SUMMARY | 2020-06-13 16:18 | XMS REPORT ---
Author Author Jah WALKER Organization [facility] Address [address] [place] [address] Care Team Providers Care Corporate Accounting Manager Name Role Phone ALETHEA WALKER Unavailable PROBLEMS Type Condition ICD9-CM Code [id number] Code Onset Dates Condition S tatus SNOMED Code Problem Pulmonary emphysema, unspecified emphysema type J4 3.9 Active 75437527 Problem Recurrent major depressive disorder, in partial remission F33.41 Active 77324533 Problem Current non-adherence to medical treatment Z91.19 Active 8295996 Problem 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 Active 836334369 Problem Thrombocytosis D47.3 Active 73393 09 Problem Gastroparesis K31.84 Active 966379 006 Problem Anxiety disorder, unspecified type F41.9 Active 552769470 Problem Chronic fatigue R53.82 Active 8422 9001 Problem Hypertriglyceridemia E78.1 Active 278185846 Problem Major depressive disorder, recurrent episode, moderate F33.1 Active 964974090 Problem Hypothyroid E03.9 Active 37236273 Problem Overactive bladder N32.81 Active 2 88483280 Problem Chronic pain G89.29 Active 4461102 1 Problem Neuropathy G62.9 Active 028814669 Problem Irritable bowel syndrome with diarrhea K58.0 Active 313117216 Problem [facility]CI current use of insulin Z79.4 Active 529029964 Problem Mixed hyperlipidemia E78.2 Active 219465272 Problem Type 2 diabetes mellitus with hyperglycemia E11.65 Active 51498333 Problem Gastroesophageal reflux disease with esophagitis K 21.0 Active 608362606 Problem Essential (primary) hypertension I10 Active 87513851 ALLERGIES No Information ENCOUNTERS Encounter Location Date Diagnosis [facility] [place] [address] [facility] [id number] [address] [place] [id number] 16 Sep, 2018 Chronic pain G89.29 [facility] [address] [facility] [id number] [address] [place] [id number] Sep, [place] [address] [place] [id number] [address] [place] [address] Sep, Type 2 diabetes mellitus wit h hyperglycemia E11.65 ; Irritable bowel syndrome with diarrhea K58.0 ; Gastroparesis K31.84 ; 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 and Dermatitis L30.9 [place] [address] [place] [address] Aug, Chronic pain G89.29 [place] [address] [place] [id number] [place] [address] Jul, Chronic pain G89.29 [place] [address] [address] Jun, Type 2 diabetes mellitus wit h hyperglycemia E11.65 ; Neuropathy G62.9 ; Recurrent major depressive disorder, in partial remission F33.41 ; Chronic pain G89.29 and Hypertriglyceridemia E78.1 [place] [address] [place] [id number] [address] [place] [address] Jun, Hypothyroid E03.[address] [address] Jun, Major depressive disorder, r ecurrent episode, moderate F33.1 and Anxiety disorder, unspecified type F41.9 [place] [address] [place] [id number] [address] [place] [address] Jun, [place] [address] [place] [address] Jun, Type 2 diabetes mellitus wit h hyperglycemia E11.65 ; FCI current use of insulin Z79.4 ; Recurrent major depressive disorder, in partial remission F33.41 ; Hypothyroid E03.9 ; Candidal dermatitis B37.2 and Weakness generalized R53.1 [place] [address] [place] [id number] [address] [place] [phone] May, [place] [address] [place] [address] May, [facility] [place] [address] [facility] [id number] [address] [place] [phone] May, [facility] [place] [address] [place] [id number] [address] [place] [phone] May, Generalized abdominal pain R 10.84 and Candidal dermatitis B37.2 [facility] [place] [address] [place] [id number] [place] [phone] May, [facility] [place] [address] [place] [id number] [place] [address] May, [place] [address] [address] May, Nodular radiologic density R 93.8 ; Weight loss, unintentional R63.4 and Pulmonary emphysema, unspecified emphysema type J43.9 [place] [address] [address] May, Chronic pain G89.29 [place] [address] [address] May, Syncope and collapse R55 ; C hronic fatigue R53.[address] lung screening R91.8 [place] [address] [address] May, [place] [address] [address] Apr, Chronic fatigue R53.82 ; Abn ormal chest CT R93.8 ; Elevated erythrocyte sedimentation rate R70.0 ; Hypothyroid E03.9 and Recurrent major depressive disorder, in partial remission F33.41 [place] [address] [place] [id number] [place] [id number] Apr, Hypothyroid E03.9 [place] [address] [place] [id number] [address] [place] [address] Apr, Depression F32.9 [place] [id number] [facility] [id number] [address] [place] [address] Apr, [place] [address] [facility] [id number] [address] [place] [id number] March, [place] [address] [facility] [id number] [address] [place] [id number] March, Hypothyroid E03.9 [place] [address] [facility] [id number] [address] [place] [address] March, Diabetes mellitus E11.9 and Hypothyroid E03.9 [place] [address] [facility] [id number] [address] [place] [address] March, Diabetes mellitus E11.9 [place] [address] [facility] [id number] [address] [place] [phone] March, Hypothyroid E03.9 and Elevat ed liver enzymes R74.8 [place] [address] [facility] [id number] [address] [place] [phone] March, Type 2 diabetes mellitus wit h [...] major depressive disorder, in partial remission F33.41 [place] [address] [facility] [id number] [address] [place] [id number] Feb, Chronic pain G89.29 [place] [address] [facility] [id number] [address] [place] [id number] Feb, Type 2 diabetes mellitus wit h hyperglycemia E11.65 and Skin lesion of scalp L98.9 [place] [address] [facility] [id number] [address] [place] [id number] Feb, [place] [address] [place] [id number] [address] [place] [id number] Jan, Type 2 diabetes mellitus wit h [...] and Irritable bowel syndrome with diarrhea K58.0 [place] [address] [place] [id number] [address] [place] [id number] Jan, [place] [address] [place] [id number] [place] [address] Jan, Controlled substance agreeme nt signed Z79.899 [place] [address] [address] Dec, Type 2 diabetes mellitus wit h hyperglycemia E11.65 ; Controlled substance agreement signed Z79.899 ; medical terminologist current use of insulin Z79.4 ; Essential (primary) hypertension I10 ; Hypothyroid E03.9 ; Neuropathy G62.9 ; Depression F32.9 ; Mixed hyperlipidemia E78.2 ; Irritable bowel syndrome with diarrhea K58.0 ; Gastroesophageal reflux disease with esophagitis K21.0 ; Thrombocytosis D47.3 ; Current non-adherence to medical treatment Z91.19 and Overweight (BMI 25.0-29.9) E66.3 [place] [address] [place] [id number] [address] [place] [address] Dec, Controlled substance agreeme nt signed Z79.899 [place] [address] [place] [id number] [address] [place] [id number] Nov, Type 2 diabetes mellitus wit h hyperglycemia E11.65 and Current non- adherence to medical treatment Z91.19 [place] [address] [place] [id number] [address] [place] [phone] Nov, [place] [address] [place] [address] Nov, Chronic pain G89.29 [facility] [address] [facility] [id number] [address] [place] [id number] Nov, [facility] [address] [facility] [id number] [address] [place] [phone] Nov, Hypothyroid E03.9 [facility] [place] [address] [facility] [id number] [address] [place] [phone] Nov, Hypothyroid E03.9 [facility] [place] [address] [facility] [id number] [address] [place] [phone] Nov, Pulmonary emphysema, unspeci fied emphysema type J43.9 and Irritable bowel syndrome with diarrhea K58.0 [facility] [place] [address] [facility] [id number] [address] [place] [id number] Oct, [facility] [place] [address] [facility] [id number] [address] [place] [phone] Oct, [facility] [place] [address] [facility] [id number] [address] [place] [id number] Oct, [facility] [place] [address] [facility] [id number] [address] [place] [phone] Oct, [facility] [place] [address] [place] [id number] [address] [place] [phone] Oct, Chronic pain G89.29 [facility] [place] [address] [facility] [id number] [address] [place] [id number] Oct, Diabetes mellitus E11.9 ; De pression F32.9 ; Mixed hyperlipidemia E78.2 ; Hypotension, unspecified hypotension type I95.9 ; Pulmonary emphysema, unspecified emphysema type J43.9 and Weight loss, unintentional R63.4 [facility] [place] [address] [facility] [id number] [address] [place] [phone] Oct, Chronic pain G89.29 [facility] [place] [address] [facility] [id number] [address] [place] [phone] Sep, Chronic pain G89.29 [facility] [address] [facility] [id number] [address] [place] [phone] Sep, Hypothyroid E03.9 and Diabet es mellitus E11.9 [facility] [address] [facility] [id number] [address] [place] [phone] Aug, Type 2 diabetes mellitus wit h hyperglycemia E11.65 ; medical terminologist current use of insulin Z79.4 ; Essential (primary) hypertension I10 ; Hypothyroid E03.9 ; Neuropathy G62.9 ; Chronic pain G89.29 ; Mixed hy perlipidemia E78.2 and Encounter for immunization Z23 [facility] [address] [facility] [id number] [address] [place] [id number] Aug, Chronic pain G89.29 [facility] [place] [address] [facility] [id number] [address] [place] [id number] Aug, Overactive bladder N32.81 ; Diabetes mellitus E11.9 and Chronic pain G89.29 [facility] [place] [address] [facility] [id number] [address] [place] [phone] Jul, [facility] [place] [address] [facility] [id number] [address] [place] [phone] Jun, [facility] [place] [address] [facility] [id number] [address] [place] [phone] Jun, [facility] [place] [address] [facility] [id number] [address] [place] [id number] Jun, Hypothyroid E03.9 [facility] [place] [address] [facility] [id number] [address] [place] [phone] Jun, Diabetes mellitus E11.9 ; Hy pothyroid E03.9 ; Neuropathy G62.9 ; Chronic pain G89.29 and Neck mass R22.1 [facility] [place] [address] [facility] [id number] [address] [place] [phone] Apr, [facility] [place] [address] [facility] [id number] [address] [place] [id number] Apr, Acute cystitis without hemat uria N30.00 [facility] [place] [address] [facility] [id number] [address] [place] [id number] March, [facility] [place] [address] [place] [id number] [address] [place] [phone] March, [facility] [place] [address] [id number] March, Near syncope R55 [facility] [place] [address] [place] [id number] [address] [place] [phone] Feb, [facility] [place] [address] [address] Feb, Chronic pain G89.29 [facility] [place] [address] [place] [id number] [address] [place] [phone] Feb, [facility] [place] [address] [place] [id number] [address] [place] [phone] Feb, [facility] [place] [address] [place] [id number] [address] [place] [phone] Jan, Chronic pain G89.29 [facility] [place] [address] [place] [id number] [address] [place] [phone] Jan, [facility] [place] [address] [place] [id number] [address] [place] [phone] Jan, [facility] [place] [address] [place] [id number] [address] [place] [id number] Jan, Diabetes mellitus E11.9 ; Hy pothyroid E03.9 ; GERD (gastroesophageal reflux disease) K21.9 ; Insomnia G47.00 ; Functional 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 ; Neuropathy G62.9 ; Depression F32.9 ; Chronic pain G89.29 ; Irritable bowel syndrome with diarrhea K58.0 ; Overactive bladder N32.81 ; Mixed hyperlipidemia E78.2 and Bronchitis J40 [facility] [place] [address] [place] [id number] [address] [place] [phone] Dec, [facility] [place] [address] [facility] [id number] [address] [place] [id number] Dec, [facility] [place] [address] [facility] [id number] [address] [place] [phone] Dec, [facility] [place] [address] [facility] [id number] [address] [place] [id number] Dec, [facility] [place] [address] [place] [id number] [address] [place] [phone] Dec, Chronic pain G89.29 [facility] [place] [address] [facility] [id number] [phone] Dec, [facility] [place] [address] [place] [id number] [address] [place] [id number] Dec, [facility] [place] [address] [address] Dec, Type 2 diabetes mellitus wit h foot ulcer E11.621 [facility] [place] [address] [place] [id number] 17 Dec, 2016 Type 2 diabetes mellitus wit h foot ulcer E11.621 [facility] [place] [address] [place] [address] 14 Dec, 2016 HTN (hypertension) I10 ; Dep ression F32.9 ; Type 2 diabetes mellitus with foot ulcer E11.621 ; Functional 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 ; Irritable bowel syndrome with diarrhea K58.0 ; Chronic pain G89.29 ; Insomnia G47.00 ; Overactive bladder N32.81 ; Mixed hyperlipidemia E78.2 ; Gastroesophageal reflux disease with esophagitis K21.0 and Acquired hypothyroidism E03.9 [facility] [address] [facility] [id number] [address] [place] [phone] Nov, [facility] [place] [address] [place] [phone] Oct, [facility] [place] [address] [address] 07 Oct, 2016 [place] [address] [address] Oct, [place] [address] [address] Sep, Functional 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 ; HTN (hypertension) I10 ; Diabetes mellitus E11.9 ; Depression F32.9 ; Overactive bladder N32.81 ; Mixed hyperlipidemia E78.2 ; Gastroesophageal reflux disease without esophagitis K21.9 ; Chronic pain G89.29 ; Insomnia G47.00 and Acquired hypothyroidism E03.9 [place] [address] [address] 04 Sep, 2016 [place] [address] [address] 11 Aug, 2016 Encounter for immunization Z 23 [place] [address] [id number] 06 Aug, 2016 [place] [address] [address] 09 Jul, 2016 [place] [address] [address] Jun, Type 2 diabetes mellitus wit hout complications E11.9 ; HTN (hypertension) I10 ; Hypothyroid E03.9 ; Neuropathy G62.9 ; Depression F32.9 ; Chronic pain G89.29 ; GERD (gastroesophageal reflux disease) K21.9 ; Insomnia G47.00 ; Overactive bladder N32.81 ; Mixed hyperlipidemia E78.2 ; Diarrhea of infectious origin A09 and Environmental allergies Z91.09 [place] [address] [address] Apr, [place] [address] [address] March, Hypothyroidism, unspecified E03.9 and Mixed hyperlipidemia E78.2 [place] [address] [place] [id number] [address] [place] [address] March, Diabetes mellitus E11.9 ; HT N (hypertension) I10 ; Hypothyroid E03.9 ; Depression F32.9 ; Overactive bladder N32.81 ; Other chronic pain G89.29 ; Lumbago with sciatica, unspecified side M54.40 ; Environmental allergies Z91.09 and Gastroesophageal reflux disease, esophagitis presence not specified K21.9 [place] [address] [place] [address] March, [place] [address] [address] Jan, HTN (hypertension) I10 ; Hyp othyroid E03.9 ; Neuropathy G62.9 ; Diabetes mellitus E11.9 ; Chronic pain G89.29 ; GERD (gastroesophageal reflux disease) K21.9 ; Overactive bladder N32.81 and Depression F32.9 [place] [address] [address] Dec, Ear pain, left H92.02 ; HTN (hypertension) I10 ; Hypothyroid E03.9 ; Neuropathy G62.9 ; Diabetes mellitus E11.9 ; Depression F32.9 ; GERD (gastroesophageal reflux disease) K21.9 ; Insomnia G47.00 and Overactive bladder N32.81 [place] [address] [place] [id number] [address] [place] [id number] Nov, Overactive bladder N32.81 an d Chronic pain G89.29 [place] [address] [place] [id number] [address] [place] [phone] Nov, Kidney failure N19 [place] [address] [place] [id number] [place] [phone] Nov, [place] [address] [place] [id number] [address] [place] [phone] Nov, [place] [address] [place] [id number] [address] [place] [phone] Nov, Diabetes mellitus E11.9 ; De pression F32.9 ; Chronic pain G89.29 ; GERD (gastroesophageal reflux disease) K21.9 ; Insomnia G47.00 ; HTN (hypertension) I10 ; Hypothyroid E03.9 ; COPD (chronic obstructive pulmonary disease) J44.9 ; Bladder incontinence R32 and Incontinence R32 [address] [address] Sep, Type 2 diabetes mellitus wit h foot ulcer E11.621 and Chromosomal abnormality, 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 [place] [address] [address] Sep, [place] [address] [address] Aug, [place] [address] [address] Aug, [address] [address] Aug, HTN (hypertension) I10 ; Enc ounter for immunization Z23 ; Hypothyroid E03.9 ; Neuropathy G62.9 ; Diabetes mellitus E11.9 ; Depression F32.9 ; Chronic pain G89.29 ; GERD (gastroesophageal reflux disease) K21.9 ; Insomnia G47.00 and COPD (chronic obstructive pulmonary disease) J44.9 [place] [address] [address] Jun, [place] [address] [address] Jun, [address] [address] May, Essential hypertension, ivis gn 401.1 ; Unspecified hypothyroidism 244.9 ; Insomnia, unspecified 780.52 ; Shortness of breath 786.05 ; Depression 311 ; COPD (chronic obstructive pulmonary disease) 496 ; GERD (gastroesophageal reflux disease) 530.81 and Diabetes 1.5, 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9 ; Insomnia 780.52 and Cough 786.2 [facility] [place] [address] [facility] [id number] [address] [place] [id number] Apr, [facility] [place] [address] [facility] [id number] [address] [place] [id number] March, Shortness of breath 786.05 ; Nausea with vomiting 787.01 ; Essential hypertension, benign 401.1 ; Diabetes mellitus 250.00 ; Hyperlipidemia 272.4 and Hypothyroid 244.9 [facility] [place] [address] [facility] [id number] [address] [place] [id number] Feb, [facility] [place] [address] [facility] [id number] [address] [place] [id number] Feb, [facility] [place] [address] [facility] [id number] [address] [place] [id number] Jan, [facility] [place] [address] [facility] [id number] [address] [place] [id number] Jan, [facility] [place] [address] [facility] [id number] [address] [place] [id number] Jan, [facility] [place] [address] [facility] [id number] [address] [place] [id number] Jan, [facility] [place] [address] [facility] [id number] [address] [place] [phone] Jan, [facility] [place] [address] [facility] [id number] [address] [place] [phone] Jan, [facility] [address] [id number] [address] [place] [address], [place] [id number] Jan, [facility] [address] [id number] [address] [place] [address], [place] [id number] Jan, [facility] [address] [id number] [address] [place] [address], [place] [id number] Jan, [facility] [address] [id number] [address] [place] [address], [place] [id number] Jan, 2014 [facility] [address] [id number] [address] [place] [address], [place] [id number] Dec, 2014 [facility] [address] [id number] [address] [place] [address], [place] [address] Dec, 2014 [facility] [address] [id number] [address] [place] [address], [place] [address] Dec, 2014 [facility] [address] [id number] [address] [place] [address], [place] [address] Dec, 2014 [facility] [address] [id number] [address] [place] [address], [place] [address] Dec, 2014 [facility] [address] [id number] [address] [place] [address], [place] [address] Dec, 2014 [facility] [address] [id number] [address] [place] [address], [place] [address] Dec, 2014 [facility] [address] [id number] [address] [place] [address] Dec, 2014 [facility] [address] [id number] [address] [place] [address], [place] [address] Dec, 2014 [facility] [address] [id number] [address] [place] [address], [place] [address] Dec, 2014 [facility] [address] [id number] [address] [place] [address], [place] [address] Oct, [facility] [address] [id number] [address] [place] [address], [place] [address] Oct, [facility] [address] [id number] [address] [place] [address], [place] [address] Oct, [facility] [address] [id number] [address] [place] [address], [place] [address] Oct, [facility] [address] [id number] [address] [place] [address], [place] [address] Oct, [facility] [address] [id number] [address] [place] [address], [place] [address] Oct, [facility] [address] [id number] [address] [place] [address], [place] [address] Oct, [facility] [address] [id number] [address] [place] [address], [place] [address] Oct, [facility] [address] [id number] [address] [place] [address], [place] [address] Oct, [facility] [address] [id number] [address] [place] [address], [place] [address] Oct, [facility] [address] [id number] [address] [place] [address], [place] [address] Oct, [facility] [address] [id number] [address] [place] [address], [place] [address] Oct, [facility] [address] [id number] [address] [place] [address], [place] [address] Oct, [facility] [address] [id number] [address] [place] [address], [place] [address] Oct, [facility] [address] [id number] [address] [place] [address], [place] [address] Sep, [facility] [address] [id number] [address] [place] [address], [place] [address] Sep, [facility] [address] [id number] [address] [place] [address], [place] [address] Sep, [facility] [address] [id number] [address] [place] [address], [place] [address] Sep, [facility] [address] [id number] [address] [place] [address], [place] [address] Sep, [facility] [address] [id number] [address] [place] [address], [place] [address] Sep, [facility] [address] [id number] [address] [place] [address], [place] [address] Sep, [facility] [address] [id number] [address] [place] [address], [place] [address] Sep, [facility] [address] [id number] [address] [place] [address], [place] [address] Sep, [facility] [address] [id number] [address] [place] [address], [place] [address] Aug, [facility] [address] [id number] [address] [place] [address], [place] [address] Aug, [facility] [address] [id number] [address] [place] [address], [place] [address] Aug, [facility] [address] [id number] [address] [place] [address], [place] [address] Aug, [facility] [address] [id number] [address] [place] [address], [place] [address] 16 Aug, 2014 [facility] [address] [id number] [address] [place] [address], [place] [address] Aug, [facility] [address] [id number] [address] [place] [address], [place] [address] Aug, [facility] [address] [id number] [address] [place] [address], [place] [address] Aug, [facility] [address] [id number] [address] [place] [address], [place] [address] Aug, [facility] [address] [id number] [address] [place] [address], [place] [address] Jul, [facility] [address] [id number] [address] [place] [address], [place] [address] Jul, [facility] [address] [id number] [address] [place] [address], [place] [address] Jul, [facility] [address] [id number] [address] [place] [address], [place] [address] Jul, [facility] [address] [id number] [address] [place] [address], [place] [address] Jul, 2013 [facility] [address] [id number] [address] [place] [address], [place] [address] Jul, [facility] [address] [id number] [address] [place] [address], [place] [address] Jul, [facility] [address] [id number] [address] [place] [address], [place] [address] Jul, [facility] [address] [id number] [address] [place] [address], [place] [address] Jul, [facility] [address] [id number] [address] [place] [address], [place] [address] Jul, [facility] [address] [id number] [address] [place] [address], [place] [address] Jun, [facility] [address] [id number] [address] [place] [address], [place] [address] Jun, [facility] [address] [id number] [address] [place] [address], [place] [address] Jun, [facility] [address] [id number] [address] [place] [address], [place] [address] Jun, [facility] [address] [id number] [address] [place] [address], [place] [address] Jun, [facility] [address] [id number] [address] [place] [address], [place] [address] Jun, [facility] [address] [id number] [facility] [address] Jun, [facility] [address] [id number] [facility] [address] Jun, [facility] [address] [id number] [facility] [address] Jun, [facility] [address] [id number] [address] [place] [address], [place] [address] Jun, [facility] [address] [id number] [address] [place] [address], [place] [address] Jun, [facility] [address] [id number] [address] [place] [address], [place] [address] Jun, [facility] [address] [id number] [address] [place] [address], [place] [address] May, [facility] [address] [id number] [address] [place] [address], [place] [address] May, [facility] [address] [id number] [address] [place] [address], [place] [address] May, [facility] [address] [id number] [address] [place] [address], [place] [address] May, [facility] [address] [id number] [address] [place] [address], [place] [address] May, [facility] [address] [id number] [address] [place] [address], [place] [address] May, [facility] [address] [id number] [address] [place] [address], [place] [address] March, [facility] [address] [id number] [address] [place] [address], [place] [address] March, [facility] [address] [id number] [address] [place] [address], [place] [address] March, [facility] [address] [id number] [address] [place] [address], [place] [address] March, [facility] [address] [id number] [address] [place] [address], [place] [address] March, [facility] [address] [id number] [address] [place] [address], [place] [address] March, [facility] [address] [id number] [address] [place] [address], [place] [address] Feb, [facility] [address] [id number] [address] [place] [address], [place] [address] Feb, [facility] [address] [id number] [address] [place] [address], [place] [address] Feb, [facility] [address] [id number] [address] [place] [address], [place] [address] Feb, [facility] [address] [id number] [address] [place] [address], [place] [address] Jan, [facility] [address] [id number] [address] [place] [address], [place] [address] Jan, [facility] [address] [id number] [address] [place] [address], [place] [address] Jan, [facility] [address] [id number] [address] [place] [address], [place] [address] Jan, [facility] [address] [id number] [address] [place] [address], [place] [address] Jan, [facility] [address] [id number] [address] [place] [address], [place] [address] Jan, [facility] [address] [id number] [address] [place] [address], [place] [address] Jan, [facility] [address] [id number] [address] [place] [address], [place] [address] Jan, [facility] [address] [id number] [address] [place] [address], [place] [address] Jan, [facility] [address] [id number] [address] [place] [address], [place] [address] Jan, [facility] [address] [id number] [address] [place] [address], [place] [address] Jan, [facility] [address] [id number] [address] [place] [address], [place] [address] Jan, [facility] [address] [id number] [address] [place] [address], [place] [address] Dec, [facility] [address] [id number] [address] [place] [address], [place] [address] Dec, [facility] [address] [id number] [address] [place] [address], [place] [address] Dec, [facility] [address] [id number] [address] [place] [address], [place] [address] Dec, [facility] [address] [id number] [address] [place] [address], [place] [address] Dec, [facility] [address] [id number] [address] [place] [address], [place] [address] Dec, [facility] [address] [id number] [address] [place] [address], [place] [address] Nov, [facility] [address] [id number] [address] [place] [address], [place] [address] Nov, [facility] [address] [id number] [address] [place] [address], [place] [address] Oct, [facility] [address] [id number] [address] [place] [address], [place] [address] Oct, [facility] [address] [id number] [address] [place] [address], [place] [address] Oct, [facility] [address] [id number] [address] [place] [address], [place] [address] Oct, [facility] [address] [id number] [address] [place] [address], [place] [address] Oct, [facility] [address] [id number] [address] [place] [address], [place] [address] Oct, [facility] [address] [id number] [address] [place] [address], [place] [address] Sep, [facility] [address] [id number] [address] [place] [address], [place] [address] Sep, [facility] [address] [id number] [address] [place] [address], [place] [address] Sep, [facility] [address] [id number] [address] [place] [address], [place] [address] Sep, [facility] [address] [id number] [address] [place] [address], [place] [address] Aug, [facility] [address] [id number] [address] [place] [address], [place] [address] Aug, [facility] [address] [id number] [address] [place] [address], [place] [address] Aug, [facility] [address] [id number] [address] [place] [address], [place] [address] Jul, [facility] [address] [id number] [address] [place] [address], [place] [address] 14 Jul, 2013 [facility] [address] [id number] [address] [place] [address], [place] [address] Jul, [facility] [address] [id number] [address] [place] [address], [place] [address] Jun, [facility] [address] [id number] [address] [place] [address], [place] [address] Jun, [facility] [address] [id number] [address] [place] [address], [place] [address] Jun, [facility] [address] [id number] [address] [place] [address], [place] [address] Apr, [facility] [address] [id number] [address] [place] [address] Apr, [facility] [address] [id number] [address] [place] [address], [place] [address] March, [facility] [address] [id number] [address] [place] [address], [place] [address] March, [facility] [address] [id number] [address] [place] [address], [place] [address] March, [facility] [address] [id number] [address] [place] [address], [place] [address] March, [facility] [address] [id number] [address] [place] [address], [place] [address] Feb, [facility] [address] [id number] [address] [place] [address], [place] [address] Jan, [facility] [address] [id number] [address] [place] [address], [place] [address] Dec, [facility] [address] [id number] [address] [place] [address], [place] [address] Dec, [facility] [address] [id number] [address] [place] [address], [place] [address] Dec, [facility] [address] [id number] [address] [place] [address], [place] [address] Nov, [facility] [address] [id number] [address] [place] [address], [place] [address] Oct, [facility] [address] [id number] [address] [place] [address], [place] [address] Oct, [facility] [address] [id number] [address] [place] [address], [place] [address] Sep, [facility] [address] [id number] [address] [place] [address], [place] [address] Sep, [facility] [address] [id number] [address] [place] [address], [place] [address] Sep, [facility] [address] [id number] [address] [place] [address], [place] [address] 08 Sep, 2012 [facility] [address] [id number] [address] [place] [address], [place] [address] Sep, [facility] [address] [id number] [address] [place] [address], [place] [address] Sep, [facility] [address] [id number] [address] [place] [address], [place] [address] Sep, [facility] [address] [id number] [address] [place] [address], [place] [address] Aug, [facility] [address] [id number] [address] [place] [address], [place] [address] Aug, [facility] [address] [id number] [address] [place] [address], [place] [address] Aug, [facility] [address] [id number] [address] [place] [address], [place] [address] Aug, [facility] [address] [id number] [address] [place] [address], [place] [address] Aug, [facility] [address] [id number] [address] [place] [address], [place] [address] Aug, [facility] [address] [id number] [address] [place] [address], [place] [address] Aug, [facility] [address] [id number] [address] [place] [address], [place] [address] Aug, [facility] [address] [id number] [address] [place] [address], [place] [address] Jul, [facility] [address] [id number] [address] [place] [address], [place] [address] Jul, [facility] [address] [id number] [address] [place] [address], [place] [address] Jun, [facility] [address] [id number] [address] [place] [address], [place] [address] May, [facility] [address] [id number] [facility] [address] Apr, [facility] [address] [id number] [address] [place] [address], [place] [address] Apr, [facility] [address] [id number] [address] [place] [address], [place] [address] Apr, [facility] [address] [id number] [address] [place] [address], [place] [address] March, [facility] [address] [id number] [address] [place] [address], [place] [address] March, [facility] [address] [id number] [address] [place] [address], [place] [address] March, [facility] [address] [id number] [address] [place] [address], [place] [address] March, [facility] [address] [id number] [address] [place] [address], [place] [address] March, [facility] [address] [id number] [address] [place] [address], [place] [address] March, [facility] [address] [id number] [address] [place] [address], [place] [address] March, [facility] [address] [id number] [address] [place] [address], [place] [address] Jan, [facility] [address] [id number] [address] [place] [address], [place] [address] Jan, [facility] [address] [id number] [address] [place] [address], [place] [address] Jan, [facility] [address] [id number] [address] [place] [address], [place] [address] Jan, [facility] [address] [id number] [address] [place] [address], [place] [address] Jan, [facility] [address] [id number] [address] [place] [address], [place] [address] 08 Dec, 2011 [facility] [address] [id number] [address] [place] [address], [place] [address] 06 Dec, 2011 [facility] [address] [id number] [address] [place] [address], [place] [address] 18 Nov, 2011 [facility] [address] [id number] [address] [place] [address], [place] [address] Nov, [facility] [address] [id number] [address] [place] [address], [place] [address] Nov, [facility] [address] [id number] [address] [place] [address], [place] [address] Nov, [facility] [address] [id number] [address] [place] [address], [place] [address] Oct, [facility] [address] [id number] [address] [place] [address], [place] [address] Oct, [facility] [address] [id number] [address] [place] [address], [place] [address] 14 Sep, 2011 [facility] [address] [id number] [address] [place] [address], [place] [address] Sep, [facility] [address] [id number] [address] [place] [address], [place] [address] Sep, [facility] [address] [id number] [address] [place] [address], [place] [address] May, [facility] [address] [id number] [address] [place] [address], [place] [address] Nov, [facility] [address] [id number] [address] [place] [address], [place] [address] 29 Oct, 2010 [facility] [address] [id number] [address] [place] [address], [place] [address] 14 Oct, 2010 [facility] [address] [id number] [address] [place] [address], [place] [address] 08 Oct, 2010 [facility] [address] [id number] [address] [place] [id number] 15 Sep, 2010 [facility] [address] [id number] [address] [place] [id number] Sep, [facility] [address] [id number] [address] [place] [id number] Aug, [facility] [address] [id number] [address] [place] [id number] March, [facility] [address] [id number] [address] [place] [id number] Oct, [facility] [address] [id number] [address] [place] [id number] Oct, [facility] [address] [id number] [address] [place] [id number] Oct, [facility] [address] [id number] [address] [place] [phone] Oct, [facility] [address] [id number] [address] [place] [id number] Sep, [facility] [address] [id number] [address] [place] [id number] Sep, [facility] [place] [address] [id number] [address] [place] [phone] Sep, [facility] [address] [id number] [address] [place] [id number] Aug, [facility] [place] [address] [id number] [address] [place] [id number] Aug, [facility] [place] [address] [id number] [address] [place] [id number] Aug, [facility] [place] [address] [id number] [address] [place] [phone] Jan, IMMUNIZATIONS No Known Immunizations SOCIAL HISTORY Never Assessed REASON FOR VISIT Controlled Med Refill 10/02 PLAN OF CARE VITAL SIGNS MEDICATIONS Medication Instructions Dosage Frequency Start Date End Date Duration S gato Levothyroxine Sodium 125 MCG Orally Once a day on an e mpty stomach with a full glass of water 1 tablet 30 Active Trazodone HCl 50 mg Orally Once a day 1 tablet at bedtime as needed 24h 30 Active Hydrocodone-Acetaminophen 5-325 MG Orally 3 times a day 1 tablet as needed 8h Sep, 28 days Active RESULTS No Results PROCEDURES [...]
--- OUTSIDE RECORDS SUMMARY | 2020-06-13 16:18 | XMS REPORT ---
Author Author Jah HASSAN Organization [facility] Address [address] [place] [address] Care Team Providers Care Back End Architect Name Role Phone REINALDO HASSAN Unavailable PROBLEMS Type Condition ICD9-CM Code [id number] Code Onset Dates Condition S tatus SNOMED Code Problem Pulmonary emphysema, unspecified emphysema type J4 3.9 Active 75768817 Problem Recurrent major depressive disorder, in partial remission F33.41 Active 41456670 Problem Current non-adherence to medical treatment Z91.19 Active 3087451 Problem 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 Active 420457754 Problem Thrombocytosis D47.3 Active 96978 09 Problem Gastroparesis K31.84 Active 978192 006 Problem Anxiety disorder, unspecified type F41.9 Active 914745810 Problem Chronic fatigue R53.82 Active 8422 9001 Problem Hypertriglyceridemia E78.1 Active 642453049 Problem Major depressive disorder, recurrent episode, moderate F33.1 Active 237567966 Problem Hypothyroid E03.9 Active 82895436 Problem Overactive bladder N32.81 Active 2 93701357 Problem Chronic pain G89.29 Active 0026368 1 Problem Neuropathy G62.9 Active 244701363 Problem Irritable bowel syndrome with diarrhea K58.0 Active 823686041 Problem long term care pharmacist current use of insulin Z79.4 Active 307610834 Problem Mixed hyperlipidemia E78.2 Active 231207035 Problem Type 2 diabetes mellitus with hyperglycemia E11.65 Active 70723394 Problem Gastroesophageal reflux disease with esophagitis K 21.0 Active 106656258 Problem Essential (primary) hypertension I10 Active 96362777 ALLERGIES No Information ENCOUNTERS Encounter Location Date Diagnosis [facility] [address] [facility] [id number] [address] [place] [phone] Sep, Type 2 diabetes mellitus wit h hyperglycemia E11.65 [facility] [address] [facility] [id number] [address] [place] [address] Sep, Chronic pain G89.29 [facility] [address] [facility] [id number] [address] [place] [address] Sep, [place] [address] [place] [id number] [address] [place] [address] Sep, Type 2 diabetes mellitus wit h hyperglycemia E11.65 ; Irritable bowel syndrome with diarrhea K58.0 ; Gastroparesis K31.84 ; 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 and Dermatitis L30.9 [place] [address] [facility] [id number] [address] [place] [address] Aug, Chronic pain G89.29 [place] [address] [place] [id number] [address] [place] [address] Jul, Chronic pain G89.29 [place] [address] [place] [address] Jun, Type 2 diabetes mellitus wit h hyperglycemia E11.65 ; Neuropathy G62.9 ; Recurrent major depressive disorder, in partial remission F33.41 ; Chronic pain G89.29 and Hypertriglyceridemia E78.1 [place] [address] [place] [id number] [address] [place] [address] 17 Jun, 2018 Hypothyroid E03.9 [place] [address] [place] [id number] [address] [place] [phone] Jun, Major depressive disorder, r ecurrent episode, moderate F33.1 and Anxiety disorder, unspecified type F41.9 [place] [address] [place] [id number] [address] [place] [phone] Jun, [place] [address] [place] [id number] [address] [place] [address] Jun, Type 2 diabetes mellitus wit h hyperglycemia E11.65 ; penitentiary current use of insulin Z79.4 ; Recurrent major depressive disorder, in partial remission F33.41 ; Hypothyroid E03.9 ; Candidal dermatitis B37.2 and Weakness generalized R53.1 [facility] [address] [id number] [address] [place] [phone] May, [facility] [address] [id number] [address] [place] [phone] May, [facility] [address] [id number] [address] [place] [phone] May, [facility] [address] [facility] [id number] [address] [place] [address] May, Generalized abdominal pain R 10.84 and Candidal dermatitis B37.2 [place] [address] [id number] [address] [place] [phone] May, [place] [address] [facility] [id number] [address] [place] [phone] May, [place] [address] [facility] [id number] [address] [place] [phone] May, Nodular radiologic density R 93.8 ; Weight loss, unintentional R63.4 and Pulmonary emphysema, unspecified emphysema type J43.9 [place] [address] [id number] [address] [place] [phone] May, Chronic pain G89.29 [place] [address] [facility] [id number] [address] [place] [phone] May, Syncope and collapse R55 ; C hronic fatigue R53.[address] lung screening R91.8 [place] [address] [facility] [id number] [address] [place] [phone] May, [facility] [address] [facility] [id number] [address] [place] [address] Apr, Chronic fatigue R53.82 ; Abn ormal chest CT R93.8 ; Elevated erythrocyte sedimentation rate R70.0 ; Hypothyroid E03.9 and Recurrent major depressive disorder, in partial remission F33.41 [place] [address] [facility] [id number] [address] [place] [phone] Apr, Hypothyroid E03.9 [facility] [address] [facility] [id number] [address] [place] [address] Apr, Depression F32.9 [facility] [address] [facility] [id number] [address] [place] [phone] Apr, [facility] [address] [facility] [id number] [address] [place] [phone] March, [facility] [address] [facility] [id number] [address] [place] [address] March, Hypothyroid E03.9 [facility] [address] [facility] [id number] [address] [place] [address] March, Diabetes mellitus E11.9 and Hypothyroid E03.9 [facility] [address] [place] [id number] [address] [place] [address] March, Diabetes mellitus E11.9 [facility] [address] [place] [id number] [address] [place] [phone] March, Hypothyroid E03.9 and Elevat ed liver enzymes R74.8 [facility] [address] [facility] [id number] [address] [place] [address] March, Type 2 diabetes mellitus wit h hyperglycemia E11.65 ; long term care pharmacist current use of insulin Z79.4 ; Pulmonary emphysema, unspecified emphysema type J43.9 ; Hypothyroid E03.9 ; Neuropathy G62.9 ; Mixed hyperlipidemia E78.2 ; Chronic pain G89.29 ; Gastroesophageal reflux disease with esophagitis K21.0 ; Irritable bowel syndrome with diarrhea K58.0 ; Overactive bladder N32.81 and Recurrent major depressive disorder, in partial remission F33.41 [facility] [address] [facility] [id number] [address] [place] [address] Feb, Chronic pain G89.29 [facility] [address] [place] [id number] [address] [place] [phone] Feb, Type 2 diabetes mellitus wit h hyperglycemia E11.65 and Skin lesion of scalp L98.9 [place] [address] [place] [id number] [address] [place] [phone] Feb, [place] [address] [address] Jan, Type 2 diabetes mellitus wit h hyperglycemia E11.65 ; long term care pharmacist current use of insulin Z79.4 ; Essential (primary) hypertension I10 ; Pulmonary emphysema, unspecified emphysema type J43.9 ; Chronic pain G89.29 ; Controlled substance agreement signed Z79.899 ; Hypothyroid E03.9 ; Neuropathy G62.9 ; Gastroesophageal reflux disease with esophagitis K21.0 ; Overactive bladder N32.81 ; Depression F32.9 and Irritable bowel syndrome with diarrhea K58.0 [place] [address] [place] [id number] [address] [place] [address] Jan, [place] [address] [address] Jan, Controlled substance agreeme nt signed Z79.899 [place] [address] [place] [id number] [address] [place] [phone] Dec, Type 2 diabetes mellitus wit h [...] treatment Z91.19 and Overweight (BMI 25.0-29.9) E66.3 [place] [address] [place] [id number] [address] [place] [address] Dec, Controlled substance agreeme nt signed Z79.899 [place] [address] [place] [address] Nov, Type 2 diabetes mellitus wit h hyperglycemia E11.65 and Current non- adherence to medical treatment Z91.19 [place] [address] [id number] [address] [place] [phone] Nov, [facility] [address] [facility] [id number] [address] [place] [address] Nov, Chronic pain G89.29 [facility] [address] [facility] [id number] [address] [place] [phone] Nov, [facility] [address] [facility] [id number] [address] [place] [phone] Nov, Hypothyroid E03.9 [facility] [address] [facility] [id number] [address] [place] [phone] Nov, Hypothyroid E03.9 [facility] [address] [facility] [id number] [address] [place] [address] Nov, Pulmonary emphysema, unspeci fied emphysema type J43.9 and Irritable bowel syndrome with diarrhea K58.0 [place] [address] [facility] [id number] [address] [place] [phone] Oct, [place] [address] [facility] [id number] [address] [place] [phone] Oct, [place] [address] [place] [id number] [address] [place] [phone] Oct, [place] [address] [facility] [id number] [address] [place] [phone] Oct, [place] [address] [facility] [id number] [address] [place] [address] Oct, Chronic pain G89.29 [place] [address] [facility] [id number] [address] [place] [address] Oct, Diabetes mellitus E11.9 ; De pression F32.9 ; Mixed hyperlipidemia E78.2 ; Hypotension, unspecified hypotension type I95.9 ; Pulmonary emphysema, unspecified emphysema type J43.9 and Weight loss, unintentional R63.4 [place] [address] [facility] [id number] [address] [place] [address] Oct, Chronic pain G89.29 [facility] [address] [place] [id number] [address] [place] [address] Sep, Chronic pain G89.29 [facility] [address] [place] [id number] [address] [place] [phone] Sep, Hypothyroid E03.9 and Diabet es mellitus E11.9 [place] [address] [place] [id number] [address] [place] [address] Aug, Type 2 diabetes mellitus wit h hyperglycemia E11.65 ; penitentiary current use of insulin Z79.4 ; Essential (primary) hypertension I10 ; Hypothyroid E03.9 ; Neuropathy G62.9 ; Chronic pain G89.29 ; Mixed hy perlipidemia E78.2 and Encounter for immunization Z23 [place] [address] [address] Aug, Chronic pain G89.29 [place] [address] [place] [id number] [address] [place] [address] Aug, Overactive bladder N32.81 ; Diabetes mellitus E11.9 and Chronic pain G89.29 [place] [address] [place] [id number] [address] [place] [address] Jul, [place] [address] [place] [id number] [address] [place] [phone] Jun, [place] [address] [place] [id number] [address] [place] [address] Jun, [place] [address] [place] [id number] [address] [place] [address] Jun, Hypothyroid E03.9 [place] [address] [place] [id number] [address] [place] [phone] Jun, Diabetes mellitus E11.9 ; Hy pothyroid E03.9 ; Neuropathy G62.9 ; Chronic pain G89.29 and Neck mass R22.1 [place] [address] [place] [id number] [address] [place] [phone] Apr, [facility] [address] [facility] [id number] [address] [place] [address] Apr, Acute cystitis without hemat uria N30.00 [facility] [address] [facility] [id number] [address] [place] [address] March, [facility] [address] [facility] [id number] [address] [place] [phone] March, [facility] [address] [facility] [id number] [address] [place] [phone] March, Near syncope R55 [facility] [address] [facility] [id number] [address] [place] [phone] Feb, [facility] [address] [facility] [id number] [address] [place] [phone] Feb, Chronic pain G89.29 [facility] [address] [facility] [id number] [address] [place] [phone] Feb, [facility] [address] [facility] [id number] [address] [place] [phone] Feb, [facility] [address] [facility] [id number] [address] [place] [phone] Jan, Chronic pain G89.29 [facility] [address] [facility] [id number] [address] [place] [phone] Jan, [facility] [address] [facility] [id number] [address] [place] [phone] Jan, [facility] [address] [facility] [id number] [address] [place] [phone] 14 Jan, 2017 Diabetes mellitus E11.9 ; Hy pothyroid E03.9 ; GERD (gastroesophageal reflux disease) K21.9 ; Insomnia G47.00 ; Functional 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 ; Neuropathy G62.9 ; Depression F32.9 ; Chronic pain G89.29 ; Irritable bowel syndrome with diarrhea K58.0 ; Overactive bladder N32.81 ; Mixed hyperlipidemia E78.2 and Bronchitis J40 [facility] [address] [facility] [id number] [address] [place] [phone] Dec, [facility] [address] [facility] [id number] [address] [place] [address] Dec, [facility] [address] [facility] [id number] [address] [place] [phone] Dec, [facility] [address] [facility] [id number] [address] [place] [address] Dec, [facility] [address] [place] [id number] [place] [address] Dec, Chronic pain G89.29 [facility] [address] [place] [address] Dec, [facility] [address] [place] [id number] [address] [place] [phone] Dec, [facility] [address] [place] [id number] [address] [place] [address] Dec, Type 2 diabetes mellitus wit h foot ulcer E11.621 [facility] [address] [place] [id number] [address] [place] [address] 17 Dec, 2016 Type 2 diabetes mellitus wit h foot ulcer E11.621 [facility] [address] [place] [address] 14 Dec, 2016 HTN (hypertension) I10 ; Dep ression F32.9 ; Type 2 diabetes mellitus with foot ulcer E11.621 ; Functional 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 ; Irritable bowel syndrome with diarrhea K58.0 ; Chronic pain G89.29 ; Insomnia G47.00 ; Overactive bladder N32.81 ; Mixed hyperlipidemia E78.2 ; Gastroesophageal reflux disease with esophagitis K21.0 and Acquired hypothyroidism E03.9 [facility] [address] [place] [id number] [address] [place] [phone] Nov, [place] [address] [address] Oct, [place] [address] [address] Oct, [place] [address] [address] Oct, [place] [address] [address] Sep, Functional 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 ; HTN (hypertension) I10 ; Diabetes mellitus E11.9 ; Depression F32.9 ; Overactive bladder N32.81 ; Mixed hyperlipidemia E78.2 ; Gastroesophageal reflux disease without esophagitis K21.9 ; Chronic pain G89.29 ; Insomnia G47.00 and Acquired hypothyroidism E03.[address] [address] Sep, [place] [address] [address] Aug, Encounter for immunization Z [address] [address] Aug, [place] [address] [address] 09 Jul, 2016 [place] [address] [address] Jun, Type 2 diabetes mellitus wit hout complications E11.9 ; HTN (hypertension) I10 ; Hypothyroid E03.9 ; Neuropathy G62.9 ; Depression F32.9 ; Chronic pain G89.29 ; GERD (gastroesophageal reflux disease) K21.9 ; Insomnia G47.00 ; Overactive bladder N32.81 ; Mixed hyperlipidemia E78.2 ; Diarrhea of infectious origin A09 and Environmental allergies Z91.[address] [address] Apr, [place] [id number] [address] [place] [address] March, Hypothyroidism, unspecified E03.9 and Mixed hyperlipidemia E78.2 [place] [address] [address] March, Diabetes mellitus E11.9 ; HT N (hypertension) I10 ; Hypothyroid E03.9 ; Depression F32.9 ; Overactive bladder N32.81 ; Other chronic pain G89.29 ; Lumbago with sciatica, unspecified side M54.40 ; Environmental allergies Z91.09 and Gastroesophageal reflux disease, esophagitis presence not specified K21.9 [place] [address] [address] March, [place] [address] [address] Jan, HTN (hypertension) I10 ; Hyp othyroid E03.9 ; Neuropathy G62.9 ; Diabetes mellitus E11.9 ; Chronic pain G89.29 ; GERD (gastroesophageal reflux disease) K21.9 ; Overactive bladder N32.81 and Depression F32.9 [place] [address] [address] Dec, Ear pain, left H92.02 ; HTN (hypertension) I10 ; Hypothyroid E03.9 ; Neuropathy G62.9 ; Diabetes mellitus E11.9 ; Depression F32.9 ; GERD (gastroesophageal reflux disease) K21.9 ; Insomnia G47.00 and Overactive bladder N32.81 [place] [address] [place] [id number] [address] [place] [phone] Nov, Overactive bladder N32.81 an d Chronic pain G89.29 [place] [address] [address] Nov, Kidney failure N19 [place] [address] [address] Nov, [place] [address] [address] Nov, [place] [address] [address] Nov, Diabetes mellitus E11.9 ; De pression F32.9 ; Chronic pain G89.29 ; GERD (gastroesophageal reflux disease) K21.9 ; Insomnia G47.00 ; HTN (hypertension) I10 ; Hypothyroid E03.9 ; COPD (chronic obstructive pulmonary disease) J44.9 ; Bladder incontinence R32 and Incontinence R32 [place] [address] [address] Sep, Type 2 diabetes mellitus wit h foot ulcer E11.621 and Chromosomal abnormality, 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 [address] Sep, [address] [address] Aug, [place] [address] [address] Aug, [address] [address] Aug, HTN (hypertension) I10 ; Enc ounter for immunization Z23 ; Hypothyroid E03.9 ; Neuropathy G62.9 ; Diabetes mellitus E11.9 ; Depression F32.9 ; Chronic pain G89.29 ; GERD (gastroesophageal reflux disease) K21.9 ; Insomnia G47.00 and COPD (chronic obstructive pulmonary disease) J44.9 [place] [address] [address] Jun, [address] [address] Jun, [place] [address] [address] May, Essential hypertension, ivis gn 401.1 ; Unspecified hypothyroidism 244.9 ; Insomnia, unspecified 780.52 ; Shortness of breath 786.05 ; Depression 311 ; COPD (chronic obstructive pulmonary disease) 496 ; GERD (gastroesophageal reflux disease) 530.81 and Diabetes 1.5, 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 [facility] [address] [address] May, [facility] [address] [address] May, [facility] [address] [address] May, Shortness of breath 786.05 ; Essential hypertension, benign 401.1 ; Diabetes mellitus 250.00 ; Hyperlipidemia 272.4 ; Hypothyroid 244.9 ; Insomnia 780.52 and Cough 786.2 [facility] [address] [address] Apr, [facility] [address] [address] March, Shortness of breath 786.05 ; Nausea with vomiting 787.01 ; Essential hypertension, benign 401.1 ; Diabetes mellitus 250.00 ; Hyperlipidemia 272.4 and Hypothyroid 244.9 [facility] [address] [address] Feb, [facility] [address] [place] [id number] [address] [place] [address] Feb, [facility] [address] [place] [id number] [address] [place] [address] Jan, [facility] [address] [place] [address] [id number] [address] [place] [id number] Jan, [facility] [address] [id number] Jan, [facility] [address] [id number] [address] [place] [id number] Jan, [facility] [address] [id number] Jan, [facility] [address] [id number] [address] [place] [address], [place] [id number] Jan, [facility] [address] [id number] [address] [place] [address], [place] [id number] Jan, [facility] [address] [id number] [address] [place] [address], [place] [id number] Jan, [facility] [address] [id number] [address] [place] [address], [place] [id number] Jan, [facility] [address] [id number] [address] [place] [address], [place] [id number] Jan, [facility] [address] [id number] [address] [place] [address], [place] [id number] Dec, 2014 [facility] [address] [id number] [address] [place] [address], [place] [id number] Dec, 2014 [facility] [address] [id number] [address] [place] [address], [place] [id number] Dec, 2014 [facility] [address] [id number] [address] [place] [address], [place] [id number] Dec, 2014 [facility] [address] [id number] [address] [place] [address], [place] [id number] Dec, 2014 [facility] [address] [id number] [address] [place] [address], [place] [id number] Dec, 2014 [facility] [address] [id number] [address] [place] [address], [place] [id number] Dec, 2014 [facility] [address] [id number] [address] [place] [address], [place] [id number] Dec, 2014 [facility] [address] [id number] [address] [place] [address] Dec, 2014 [facility] [address] [id number] [address] [place] [address], [place] [address] Dec2014 [facility] [address] [id number] [address] [place] [address], [place] [address] Oct, [facility] [address] [id number] [address] [place] [address], [place] [address] Oct, [facility] [address] [id number] [address] [place] [address], [place] [address] Oct, [facility] [address] [id number] [address] [place] [address], [place] [address] Oct, [facility] [address] [id number] [address] [place] [address], [place] [address] Oct, [facility] [address] [id number] [address] [place] [address], [place] [address] Oct, [facility] [address] [id number] [address] [place] [address], [place] [address] Oct, [facility] [address] [id number] [address] [place] [address], [place] [address] Oct, [facility] [address] [id number] [address] [place] [address], [place] [address] Oct, [facility] [address] [id number] [address] [place] [address], [place] [address] Oct, [facility] [address] [id number] [address] [place] [address], [place] [address] Oct, [facility] [address] [id number] [address] [place] [address], [place] [address] Oct, [facility] [address] [id number] [address] [place] [address], [place] [address] Oct, [facility] [address] [id number] [address] [place] [address], [place] [address] Oct, [facility] [address] [id number] [address] [place] [address], [place] [address] Sep, [facility] [address] [id number] [address] [place] [address], [place] [address] Sep, [facility] [address] [id number] [address] [place] [address], [place] [address] Sep, [facility] [address] [id number] [address] [place] [address], [place] [address] Sep, [facility] [address] [id number] [address] [place] [address], [place] [address] Sep, [facility] [address] [id number] [address] [place] [address], [place] [address] Sep, [facility] [address] [id number] [address] [place] [address], [place] [address] Sep, [facility] [address] [id number] [address] [place] [address], [place] [address] Sep, [facility] [address] [id number] [address] [place] [address], [place] [address] Sep, [facility] [address] [id number] [address] [place] [address], [place] [address] Aug, [facility] [address] [id number] [address] [place] [address], [place] [address] Aug, [facility] [address] [id number] [address] [place] [address], [place] [address] Aug, [facility] [address] [id number] [address] [place] [address], [place] [address] Aug, [facility] [address] [id number] [address] [place] [address] 16 Aug, 2014 [facility] [address] [id number] [address] [place] [address], [place] [address] Aug, [facility] [address] [id number] [address] [place] [address], [place] [address] Aug, [facility] [address] [id number] [address] [place] [address], [place] [address] Aug, [facility] [address] [id number] [facility] [place] [address] Aug, [facility] [address] [id number] [address] [place] [address], [place] [address] Jul, [facility] [address] [id number] [facility] [place] [address] Jul, [facility] [address] [id number] [address] [place] [address], [place] [address] Jul, [facility] [address] [id number] [address] [place] [address], [place] [address] Jul, [facility] [address] [id number] [address] [place] [address], [place] [address] Jul, [facility] [address] [id number] [address] [place] [address], [place] [address] Jul, [facility] [address] [id number] [address] [place] [address], [place] [address] Jul, [facility] [address] [id number] [address] [place] [address], [place] [address] Jul, [facility] [address] [id number] [address] [place] [address], [place] [address] Jul, [facility] [address] [id number] [address] [place] [address], [place] [address] Jul, [facility] [address] [id number] [address] [place] [address], [place] [address] Jun, [facility] [address] [id number] [address] [place] [address], [place] [address] Jun, [facility] [address] [id number] [address] [place] [address], [place] [address] Jun, [facility] [address] [id number] [address] [place] [address], [place] [address] Jun, [facility] [address] [id number] [address] [place] [address], [place] [address] Jun, [facility] [address] [id number] [address] [place] [address], [place] [address] Jun, [facility] [address] [id number] [address] [place] [address], [place] [address] Jun, [facility] [address] [id number] [address] [place] [address], [place] [address] Jun, [facility] [address] [id number] [address] [place] [address], [place] [address] Jun, [facility] [address] [id number] [address] [place] [address], [place] [address] Jun, [facility] [address] [id number] [address] [place] [address], [place] [address] Jun, [facility] [address] [id number] [address] [place] [address], [place] [address] Jun, [facility] [address] [id number] [address] [place] [address], [place] [address] May, [facility] [address] [id number] [address] [place] [address], [place] [address] May, [facility] [address] [id number] [address] [place] [address], [place] [address] May, [facility] [address] [id number] [address] [place] [address], [place] [address] May, [facility] [address] [id number] [address] [place] [address], [place] [address] May, [facility] [address] [id number] [address] [place] [address], [place] [address] May, [facility] [address] [id number] [address] [place] [address], [place] [address] March, [facility] [address] [id number] [address] [place] [address], [place] [address] March, [facility] [address] [id number] [address] [place] [address], [place] [address] March, [facility] [address] [id number] [address] [place] [address], [place] [address] March, [facility] [address] [id number] [address] [place] [address], [place] [address] March, [facility] [address] [id number] [address] [place] [address], [place] [address] March, [facility] [address] [id number] [address] [place] [address], [place] [address] Feb, [facility] [address] [id number] [address] [place] [address], [place] [address] Feb, [facility] [address] [id number] [address] [place] [address], [place] [address] Feb, [facility] [address] [id number] [address] [place] [address], [place] [address] Feb, [facility] [address] [id number] [address] [place] [address], [place] [address] Jan, [facility] [address] [id number] [address] [place] [address], [place] [address] Jan, [facility] [address] [id number] [address] [place] [address], [place] [address] Jan, [facility] [address] [id number] [address] [place] [address], [place] [address] Jan, [facility] [address] [id number] [address] [place] [address], [place] [address] Jan, [facility] [address] [id number] [address] [place] [address], [place] [address] Jan, [facility] [address] [id number] [address] [place] [address], [place] [address] Jan, [facility] [address] [id number] [address] [place] [address], [place] [address] Jan, [facility] [address] [id number] [address] [place] [address], [place] [address] Jan, [facility] [address] [id number] [address] [place] [address], [place] [address] Jan, [facility] [address] [id number] [address] [place] [address], [place] [address] Jan, [facility] [address] [id number] [address] [place] [address], [place] [address] Jan, [facility] [address] [id number] [address] [place] [address], [place] [address] Dec, [facility] [address] [id number] [address] [place] [address], [place] [address] Dec, [facility] [address] [id number] [address] [place] [address], [place] [address] Dec, [facility] [address] [id number] [address] [place] [address], [place] [address] Dec, [facility] [address] [id number] [address] [place] [address], [place] [address] Dec, [facility] [address] [id number] [address] [place] [address], [place] [address] Dec, [facility] [address] [id number] [address] [place] [address], [place] [address] Nov, [facility] [address] [id number] [address] [place] [address], [place] [address] Nov, [facility] [address] [id number] [address] [place] [address], [place] [address] Oct, [facility] [address] [id number] [address] [place] [address], [place] [address] Oct, [facility] [address] [id number] [address] [place] [address], [place] [address] Oct, [facility] [address] [id number] [address] [place] [address], [place] [address] Oct, [facility] [address] [id number] [address] [place] [address], [place] [address] Oct, [facility] [address] [id number] [address] [place] [address], [place] [address] Oct, [facility] [address] [id number] [address] [place] [address], [place] [address] Sep, [facility] [address] [id number] [address] [place] [address], [place] [address] Sep, [facility] [address] [id number] [address] [place] [address], [place] [address] Sep, [facility] [address] [id number] [address] [place] [address], [place] [address] Sep, [facility] [address] [id number] [address] [place] [address], [place] [address] Aug, [facility] [address] [id number] [address] [place] [address], [place] [address] Aug, [facility] [address] [id number] [address] [place] [address], [place] [address] Aug, [facility] [address] [id number] [address] [place] [address], [place] [address] Jul, [facility] [address] [id number] [address] [place] [address], [place] [address] Jul, [facility] [address] [id number] [address] [place] [address], [place] [address] Jul, [facility] [address] [id number] [address] [place] [address], [place] [address] Jun, [facility] [address] [id number] [address] [place] [address], [place] [address] Jun, [facility] [address] [id number] [address] [place] [address], [place] [address] Jun, [facility] [address] [id number] [address] [place] [address], [place] [address] Apr, [facility] [address] [id number] [address] [place] [address], [place] [address] Apr, [facility] [address] [id number] [address] [place] [address], [place] [address] March, [facility] [address] [id number] [address] [place] [address], [place] [address] March, [facility] [address] [id number] [address] [place] [address], [place] [address] March, [facility] [address] [id number] [address] [place] [address], [place] [address] March, [facility] [address] [id number] [address] [place] [address], [place] [address] Feb, [facility] [address] [id number] [address] [place] [address], [place] [address] Jan, [facility] [address] [id number] [address] [place] [address], [place] [address] Dec, [facility] [address] [id number] [address] [place] [address], [place] [address] Dec, [facility] [address] [id number] [address] [place] [address], [place] [address] Dec, [facility] [address] [id number] [address] [place] [address], [place] [address] Nov, [facility] [address] [id number] [address] [place] [address], [place] [address] Oct, [facility] [address] [id number] [address] [place] [address], [place] [address] Oct, [facility] [address] [id number] [address] [place] [address], [place] [address] Sep, [facility] [address] [id number] [address] [place] [address], [place] [address] Sep, [facility] [address] [id number] [address] [place] [address], [place] [address] Sep, [facility] [address] [id number] [address] [place] [address], [place] [address] Sep, [facility] [address] [id number] [address] [place] [address], [place] [address] Sep, [facility] [address] [id number] [address] [place] [address], [place] [address] Sep, [facility] [address] [id number] [address] [place] [address], [place] [address] Sep, [facility] [address] [id number] [address] [place] [address], [place] [address] Aug, [facility] [address] [id number] [address] [place] [address], [place] [address] Aug, [facility] [address] [id number] [address] [place] [address], [place] [address] Aug, [facility] [address] [id number] [address] [place] [address], [place] [address] Aug, [facility] [address] [id number] [address] [place] [address] Aug, [facility] [address] [id number] [address] [place] [address] Aug, [facility] [address] [id number] [address] [place] [address] Aug, [facility] [address] [id number] [address] [place] [address], [place] [address] Aug, [facility] [address] [id number] [address] [place] [address], [place] [address] Jul, [facility] [address] [id number] [address] [place] [address], [place] [address] 12 Jul, 2012 [facility] [address] [id number] [address] [place] [address], [place] [address] Jun, [facility] [address] [id number] [address] [place] [address], [place] [address] May, [facility] [address] [id number] [address] [place] [address], [place] [address] Apr, [facility] [address] [id number] [address] [place] [address], [place] [address] Apr, [facility] [address] [id number] [address] [place] [address], [place] [address] Apr, [facility] [address] [id number] [address] [place] [address], [place] [address] March, [facility] [address] [id number] [address] [place] [address], [place] [address] March, [facility] [address] [id number] [address] [place] [address], [place] [address] March, [facility] [address] [id number] [address] [place] [address], [place] [address] March, [facility] [address] [id number] [address] [place] [address], [place] [address] March, [facility] [address] [id number] [address] [place] [address], [place] [address] March, [facility] [address] [id number] [address] [place] [address], [place] [address] March, [facility] [address] [id number] [address] [place] [address], [place] [address] Jan, [facility] [address] [id number] [address] [place] [address], [place] [address] Jan, [facility] [address] [id number] [address] [place] [address], [place] [address] Jan, [facility] [address] [id number] [address] [place] [address], [place] [address] Jan, [facility] [address] [id number] [address] [place] [address], [place] [address] Jan, [facility] [address] [id number] [address] [place] [address], [place] [address] Dec, [facility] [address] [id number] [address] [place] [address], [place] [address] Dec, [facility] [address] [id number] [address] [place] [address], [place] [address] Nov, [facility] [address] [id number] [address] [place] [address], [place] [address] Nov, [facility] [address] [id number] [address] [place] [address], [place] [address] Nov, [facility] [address] [id number] [address] [place] [address], [place] [address] Nov, [facility] [address] [id number] [address] [place] [address], [place] [address] Oct, [facility] [address] [id number] [address] [place] [address], [place] [address] Oct, [facility] [address] [id number] [address] [place] [address], [place] [address] Sep, [facility] [address] [id number] [address] [place] [address], [place] [address] Sep, [facility] [address] [id number] [address] [place] [address], [place] [address] Sep, [facility] [address] [id number] [address] [place] [address], [place] [address] May, [facility] [address] [id number] [address] [place] [address], [place] [address] Nov, [facility] [address] [id number] [address] [place] [address], [place] [address] 29 Oct, 2010 [facility] [address] [id number] [address] [place] [id number] 14 Oct, 2010 [facility] [address] [id number] [address] [place] [address], [place] [address] 08 Oct, 2010 [facility] [address] [id number] [address] [place] [id number] 15 Sep, 2010 [facility] [address] [id number] [address] [place] [id number] Sep, [facility] [address] [id number] [address] [place] [phone] Aug, [facility] [address] [id number] [address] [place] [address], [place] [address] March, [facility] [address] [id number] [address] [place] [phone] Oct, [facility] [address] [id number] [address] [place] [phone] Oct, [facility] [address] [id number] [address] [place] [phone] Oct, [facility] [address] [id number] [address] [place] [id number] Oct, [facility] [address] [id number] [address] [place] [phone] Sep, [facility] [address] [id number] [address] [place] [id number] Sep, [facility] [address] [id number] [address] [place] [phone] Sep, [facility] [address] [id number] [address] [place] [id number] 27 Aug, 2009 [facility] [address] [id number] [address] [place] [id number] 24 Aug, 2009 [facility] [address] [id number] [address] [place] [phone] Aug, [facility] [address] [id number] [address] [place] [address] 10 Jan, 2009 IMMUNIZATIONS No Known Immunizations SOCIAL HISTORY Never Assessed REASON FOR VISIT medication refill PLAN OF CARE VITAL SIGNS MEDICATIONS Medication Instructions Dosage Frequency Start Date End Date Duration S gato Victoza 18 MG/3ML Subcutaneous Once a day 1.8 mg 24h 12 months Active BD Ultra-Fine Micro Pen Needle 32G X 6 MM subcutaneously 3 t imes a day use to inject insulin 8h May, Active RESULTS No Results PROCEDURES No Known [...]
--- OUTSIDE RECORDS SUMMARY | 2020-06-13 16:19 | XMS REPORT ---
Author Author Jah HASSAN Organization [facility] Address [address] [place] [address] Care Team Providers Care Demo Specialist Name Role Phone REINALDO HASSAN Unavailable PROBLEMS Type Condition ICD9-CM Code PRV09-LR Code Onset Dates Condition S tatus SNOMED Code Problem Pulmonary emphysema, unspecified emphysema type J4 3.9 Active 31361409 Problem Recurrent major depressive disorder, in partial remission F33.41 Active 63257770 Problem Current non-adherence to medical treatment Z91.19 Active 8503874 Problem 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 Active 433136928 Problem Thrombocytosis D47.3 Active 58836 09 Problem Gastroparesis K31.84 Active 273948 006 Problem Anxiety disorder, unspecified type F41.9 Active 628116340 Problem Chronic fatigue R53.82 Active 8422 9001 Problem Hypertriglyceridemia E78.1 Active 157304193 Problem Major depressive disorder, recurrent episode, moderate F33.1 Active 320286083 Problem Hypothyroid E03.9 Active 30852268 Problem Overactive bladder N32.81 Active 2 56721433 Problem Chronic pain G89.29 Active 3750079 1 Problem Neuropathy G62.9 Active 906986244 Problem Irritable bowel syndrome with diarrhea K58.0 Active 732290164 Problem 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 Active 274431532 Problem Mixed hyperlipidemia E78.2 Active 893532173 Problem Type 2 diabetes mellitus with hyperglycemia E11.65 Active 40915381 Problem Gastroesophageal reflux disease with esophagitis K 21.0 Active 820654718 Problem Essential (primary) hypertension I10 Active 55348901 ALLERGIES Substance Reaction Event Type Date Status Trilipix nausea Drug Allergy Sep, Active Niacin rash Drug Allergy Sep, Active Metformin HCl diarrhea Drug Allergy Sep, Active Januvia diarrhea Drug Allergy Sep, Active Gemfibrozil diarrhea Drug Allergy Sep, Active Actos diarrhea Drug Allergy Sep, Active ENCOUNTERS Encounter Location Date Diagnosis [place] [address] [address] Sep, [place] [address] [address] Sep, Type 2 diabetes mellitus wit h hyperglycemia E11.65 ; Irritable bowel syndrome with diarrhea K58.0 ; Gastroparesis K31.84 ; 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 and Dermatitis L30.9 [place] [address] [address] [place] [id number] [place] [address] Aug, Chronic pain G89.29 [place] [address] [address] Jul, Chronic pain G89.29 [place] [address] [address] Jun, Type 2 diabetes mellitus wit h hyperglycemia E11.65 ; Neuropathy G62.9 ; Recurrent major depressive disorder, in partial remission F33.41 ; Chronic pain G89.29 and Hypertriglyceridemia E78.1 [place] [address] [address] 17 Jun, 2018 Hypothyroid E03.9 [place] [address] [address] 16 Jun, 2018 Major depressive disorder, r ecurrent episode, moderate F33.1 and Anxiety disorder, unspecified type F41.9 [place] [address] [place] [address] 14 Jun, 2018 [place] [address] [address] Jun, Type 2 diabetes mellitus wit h hyperglycemia E11.65 ; 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 ; Recurrent major depressive disorder, in partial remission F33.41 ; Hypothyroid E03.9 ; Candidal dermatitis B37.2 and Weakness generalized R53.1 [place] [address] [place] [address] May, [facility] [address] [id number] [address] [place] [address] May, [facility] [address] [id number] [address] [place] [address] May, [facility] [address] [id number] [address] [place] [address] May, Generalized abdominal pain R 10.84 and Candidal dermatitis B37.2 [facility] [address] [id number] [address] [place] [address] May, [facility] [address] [id number] [address] [place] [address] May, [facility] [address] [facility] [id number] [address] [place] [address] May, Nodular radiologic density R 93.8 ; Weight loss, unintentional R63.4 and Pulmonary emphysema, unspecified emphysema type J43.9 [facility] [address] [facility] [id number] [address] [place] [address] May, Chronic pain G89.29 [place] [address] [address] [facility] [id number] [address] [place] [address] May, Syncope and collapse R55 ; C hronic fatigue R53.[address] lung screening R91.8 [place] [address] [address] [facility] [id number] [address] [place] [address] May, [facility] [address] [facility] [id number] [address] [place] [address] Apr, Chronic fatigue R53.82 ; Abn ormal chest CT R93.8 ; Elevated erythrocyte sedimentation rate R70.0 ; Hypothyroid E03.9 and Recurrent major depressive disorder, in partial remission F33.41 [facility] [address] [facility] [id number] [address] [place] [address] Apr, Hypothyroid E03.9 [place] [address] [id number] [address] [place] [address] Apr, Depression F32.9 [facility] [address] [facility] [id number] [address] [place] [address] Apr, [facility] [address] [facility] [id number] [address] [place] [address] March, [facility] [address] [facility] [id number] [address] [place] [address] March, Hypothyroid E03.9 [place] [address] [address] [facility] [id number] [address] [place] [address] March, Diabetes mellitus E11.9 and Hypothyroid E03.9 [place] [address] [address] [facility] [id number] [address] [place] [address] March, Diabetes mellitus E11.9 [place] [address] [address] [facility] [id number] [address] [place] [address] March, Hypothyroid E03.9 and Elevat ed liver enzymes R74.8 [place] [address] [address] [facility] [id number] [address] [place] [address] March, Type 2 diabetes mellitus wit h hyperglycemia E11.65 ; 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 ; Pulmonary emphysema, unspecified emphysema type J43.9 ; Hypothyroid E03.9 ; Neuropathy G62.9 ; Mixed hyperlipidemia E78.2 ; Chronic pain G89.29 ; Gastroesophageal reflux disease with esophagitis K21.0 ; Irritable bowel syndrome with diarrhea K58.0 ; Overactive bladder N32.81 and Recurrent major depressive disorder, in partial remission F33.41 [place] [address] [address] [facility] [id number] [address] [place] [address] Feb, Chronic pain G89.29 [facility] [address] [facility] [id number] [address] [place] [address] Feb, Type 2 diabetes mellitus wit h hyperglycemia E11.65 and Skin lesion of scalp L98.9 [place] [address] [place] [address] Feb, [place] [address] [address] [place] [id number] [address] [place] [address] Jan, Type 2 diabetes mellitus wit h hyperglycemia E11.65 ; FDC current use of insulin Z79.4 ; Essential (primary) hypertension I10 ; Pulmonary emphysema, unspecified emphysema type J43.9 ; Chronic pain G89.29 ; Controlled substance agreement signed Z79.899 ; Hypothyroid E03.9 ; Neuropathy G62.9 ; Gastroesophageal reflux disease with esophagitis K21.0 ; Overactive bladder N32.81 ; Depression F32.9 and Irritable bowel syndrome with diarrhea K58.0 [place] [address] [address] Jan, [place] [address] [address] Jan, Controlled substance agreeme nt signed Z79.899 [place] [address] [address] [place] [id number] [place] [address] Dec, Type 2 diabetes mellitus wit h hyperglycemia E11.65 ; Controlled substance agreement signed Z79.899 ; 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 ; Essential (primary) hypertension I10 ; Hypothyroid E03.9 ; Neuropathy G62.9 ; Depression F32.9 ; Mixed hyperlipidemia E78.2 ; Irritable bowel syndrome with diarrhea K58.0 ; Gastroesophageal reflux disease with esophagitis K21.0 ; Thrombocytosis D47.3 ; Current non-adherence to medical treatment Z91.19 and Overweight (BMI 25.0-29.9) E66.3 [place] [address] [address] [place] [id number] [address] [place] [address] Dec, Controlled substance agreeme nt signed Z79.899 [place] [address] [address] [place] [id number] [address] [place] [address] Nov, Type 2 diabetes mellitus wit h hyperglycemia E11.65 and Current non- adherence to medical treatment Z91.19 [place] [address] [place] [address] Nov, [facility] [address] [id number] [address] [place] [address] Nov, Chronic pain G89.29 [facility] [address] [id number] [address] [place] [address] Nov, [facility] [address] [id number] [address] [place] [address] Nov, Hypothyroid E03.9 [facility] [address] [id number] [address] [place] [address] Nov, Hypothyroid E03.9 [facility] [address] [facility] [id number] [address] [place] [address] Nov, Pulmonary emphysema, unspeci fied emphysema type J43.9 and Irritable bowel syndrome with diarrhea K58.0 [facility] [address] [facility] [id number] [address] [place] [address] Oct, [facility] [address] [facility] [id number] [address] [place] [address] Oct, [facility] [address] [facility] [id number] [address] [place] [address] Oct, [facility] [address] [facility] [id number] [address] [place] [address] Oct, [facility] [address] [facility] [id number] [address] [place] [address] Oct, Chronic pain G89.29 [facility] [address] [facility] [id number] [address] [place] [address] Oct, Diabetes mellitus E11.9 ; De pression F32.9 ; Mixed hyperlipidemia E78.2 ; Hypotension, unspecified hypotension type I95.9 ; Pulmonary emphysema, unspecified emphysema type J43.9 and Weight loss, unintentional R63.4 [facility] [address] [facility] [id number] [address] [place] [address] Oct, Chronic pain G89.29 [facility] [address] [address] Sep, Chronic pain G89.29 [facility] [address] [address] Sep, Hypothyroid E03.9 and Diabet es mellitus E11.9 [facility] [address] [address] Aug, Type 2 diabetes mellitus wit h hyperglycemia E11.65 ; FDC current use of insulin Z79.4 ; Essential (primary) hypertension I10 ; Hypothyroid E03.9 ; Neuropathy G62.9 ; Chronic pain G89.29 ; Mixed hy perlipidemia E78.2 and Encounter for immunization Z23 [place] [address] [address] Aug, Chronic pain G89.29 [place] [address] [address] Aug, Overactive bladder N32.81 ; Diabetes mellitus E11.9 and Chronic pain G89.29 [place] [address] [address] Jul, [place] [address] [address] Jun, [place] [address] [address] Jun, [facility] [address] [address] Jun, Hypothyroid E03.9 [facility] [address] [address] Jun, Diabetes mellitus E11.9 ; Hy pothyroid E03.9 ; Neuropathy G62.9 ; Chronic pain G89.29 and Neck mass R22.1 [place] [address] [address] Apr, [facility] [address] [id number] [address] [place] [address] Apr, Acute cystitis without hemat uria N30.00 [facility] [address] [id number] [address] [place] [address] March, [facility] [address] [facility] [id number] [address] [place] [address] March, [facility] [address] [facility] [id number] [address] [place] [address] March, Near syncope R55 [facility] [address] [facility] [id number] [address] [place] [address] Feb, [facility] [address] [facility] [id number] [address] [place] [address] Feb, Chronic pain G89.29 [facility] [address] [facility] [id number] [address] [place] [address] Feb, [facility] [address] [facility] [id number] [address] [place] [address] Feb, [facility] [address] [facility] [id number] [address] [place] [address] Jan, Chronic pain G89.29 [facility] [address] [facility] [id number] [address] [place] [address] Jan, [facility] [address] [facility] [id number] [address] [place] [address] Jan, [facility] [address] [facility] [id number] [address] [place] [address] 14 Jan, 2017 Diabetes mellitus E11.9 ; Hy pothyroid E03.9 ; GERD (gastroesophageal reflux disease) K21.9 ; Insomnia G47.00 ; Functional 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 ; Neuropathy G62.9 ; Depression F32.9 ; Chronic pain G89.29 ; Irritable bowel syndrome with diarrhea K58.0 ; Overactive bladder N32.81 ; Mixed hyperlipidemia E78.2 and Bronchitis J40 [facility] [address] [place] [address] Dec, [facility] [address] [facility] [id number] [address] [place] [address] Dec, [facility] [address] [facility] [id number] [address] [place] [address] Dec, [facility] [address] [place] [id number] [place] [address] Dec, [facility] [address] [facility] [id number] [place] [address] Dec, Chronic pain G89.29 [facility] [address] [address] Dec, [facility] [address] [address] Dec, [facility] [address] [place] [id number] [address] [place] [address] Dec, Type 2 diabetes mellitus wit h foot ulcer E11.621 [place] [id number] [address] 17 Dec, 2016 Type 2 diabetes mellitus wit h foot ulcer E11.621 [facility] [address] [address] 14 Dec, 2016 HTN (hypertension) I10 ; Dep ression F32.9 ; Type 2 diabetes mellitus with foot ulcer E11.621 ; Functional 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 ; Irritable bowel syndrome with diarrhea K58.0 ; Chronic pain G89.29 ; Insomnia G47.00 ; Overactive bladder N32.81 ; Mixed hyperlipidemia E78.2 ; Gastroesophageal reflux disease with esophagitis K21.0 and Acquired hypothyroidism E03.9 [facility] [address] [place] [id number] [address] [place] [address] Nov, [facility] [address] [address] Oct, [place] [address] [address] Oct, [place] [address] [address] Oct, [place] [address] [address] Sep, Functional 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 ; HTN (hypertension) I10 ; Diabetes mellitus E11.9 ; Depression F32.9 ; Overactive bladder N32.81 ; Mixed hyperlipidemia E78.2 ; Gastroesophageal reflux disease without esophagitis K21.9 ; Chronic pain G89.29 ; Insomnia G47.00 and Acquired hypothyroidism E03.9 [place] [address] [address] Sep, [place] [address] [address] Aug, Encounter for immunization Z [address] [address] Aug, [place] [address] [address] 09 Jul, 2016 [place] [address] [address] Jun, Type 2 diabetes mellitus wit hout complications E11.9 ; HTN (hypertension) I10 ; Hypothyroid E03.9 ; Neuropathy G62.9 ; Depression F32.9 ; Chronic pain G89.29 ; GERD (gastroesophageal reflux disease) K21.9 ; Insomnia G47.00 ; Overactive bladder N32.81 ; Mixed hyperlipidemia E78.2 ; Diarrhea of infectious origin A09 and Environmental allergies Z91.09 [place] [address] [address] Apr, [place] [address] [address] March, Hypothyroidism, unspecified E03.9 and Mixed hyperlipidemia E78.2 [place] [address] [address] March, Diabetes mellitus E11.9 ; HT N (hypertension) I10 ; Hypothyroid E03.9 ; Depression F32.9 ; Overactive bladder N32.81 ; Other chronic pain G89.29 ; Lumbago with sciatica, unspecified side M54.40 ; Environmental allergies Z91.09 and Gastroesophageal reflux disease, esophagitis presence not specified K21.9 [place] [address] [address] March, [place] [address] [address] Jan, HTN (hypertension) I10 ; Hyp othyroid E03.9 ; Neuropathy G62.9 ; Diabetes mellitus E11.9 ; Chronic pain G89.29 ; GERD (gastroesophageal reflux disease) K21.9 ; Overactive bladder N32.81 and Depression F32.9 [place] [address] [place] [id number] [place] [address] Dec, Ear pain, left H92.02 ; HTN (hypertension) I10 ; Hypothyroid E03.9 ; Neuropathy G62.9 ; Diabetes mellitus E11.9 ; Depression F32.9 ; GERD (gastroesophageal reflux disease) K21.9 ; Insomnia G47.00 and Overactive bladder N32.81 [place] [address] [place] [id number] [address] [place] [address] Nov, Overactive bladder N32.81 an d Chronic pain G89.29 [place] [address] [place] [id number] [place] [address] Nov, Kidney failure N19 [place] [address] [place] [id number] [place] [address] Nov, [place] [address] [address] Nov, [place] [address] [address] Nov, Diabetes mellitus E11.9 ; De pression F32.9 ; Chronic pain G89.29 ; GERD (gastroesophageal reflux disease) K21.9 ; Insomnia G47.00 ; HTN (hypertension) I10 ; Hypothyroid E03.9 ; COPD (chronic obstructive pulmonary disease) J44.9 ; Bladder incontinence R32 and Incontinence R32 [address] [address] Sep, Type 2 diabetes mellitus wit h foot ulcer E11.621 and Chromosomal abnormality, 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 [address] Sep, [address] [address] Aug, [address] [address] Aug, [address] [address] Aug, HTN (hypertension) I10 ; Enc ounter for immunization Z23 ; Hypothyroid E03.9 ; Neuropathy G62.9 ; Diabetes mellitus E11.9 ; Depression F32.9 ; Chronic pain G89.29 ; GERD (gastroesophageal reflux disease) K21.9 ; Insomnia G47.00 and COPD (chronic obstructive pulmonary disease) J44.9 [place] [address] [address] Jun, [address] [address] Jun, [address] [address] May, Essential hypertension, ivis gn 401.1 ; Unspecified hypothyroidism 244.9 ; Insomnia, unspecified 780.52 ; Shortness of breath 786.05 ; Depression 311 ; COPD (chronic obstructive pulmonary disease) 496 ; GERD (gastroesophageal reflux disease) 530.81 and Diabetes 1.5, 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 [facility] [address] [address] May, [facility] [address] [place] [id number] [place] [address] May, [facility] [address] [address] May, Shortness of breath 786.05 ; Essential hypertension, benign 401.1 ; Diabetes mellitus 250.00 ; Hyperlipidemia 272.4 ; Hypothyroid 244.9 ; Insomnia 780.52 and Cough 786.2 [facility] [address] [address] Apr, [facility] [address] [address] March, Shortness of breath 786.05 ; Nausea with vomiting 787.01 ; Essential hypertension, benign 401.1 ; Diabetes mellitus 250.00 ; Hyperlipidemia 272.4 and Hypothyroid 244.9 [facility] [address] [address] Feb, [facility] [address] [address] Feb, [facility] [address] [address] Jan, [facility] [address] [place] [id number] [address] [place] [address] Jan, [facility] [address] [address] Jan, [facility] [address] [place] [id number] [address] [place] [address] Jan, [facility] [address] [place] [id number] [address] [place] [address] Jan, [facility] [place] [facility] [address] [id number] [address] [place] [address], [place] [address] Jan, 2014 [facility] [place] [facility] [address] [id number] [address] [place] [address], [place] [address] Jan, [facility] [place] [facility] [address] [id number] [address] [place] [address], [place] [address] Jan, 2014 [facility] [place] [facility] [address] [id number] [address] [place] [address], [place] [address] Jan, 2014 [facility] [place] [facility] [address] [id number] [address] [place] [address], [place] [address] Jan, [facility] [place] [facility] [address] [id number] [address] [place] [address], [place] [address] Dec, 2014 [facility] [place] [facility] [address] [id number] [address] [place] [address], [place] [address] Dec, 2014 [facility] [place] [facility] [address] [id number] [address] [place] [address], [place] [address] Dec, 2014 [facility] [place] [facility] [address] [id number] [address] [place] [address], [place] [address] Dec, 2014 [facility] [address] [id number] [address] [place] [address], [place] [address] Dec, 2014 [facility] [address] [id number] [address] [place] [address], [place] [address] Dec, 2014 [facility] [address] [id number] [address] [place] [id number] Dec, 2014 [facility] [address] [id number] [address] [place] [address], [place] [address] Dec, 2014 [facility] [address] [id number] [address] [place] [address], [place] [address] Dec, 2014 [facility] [address] [id number] [address] [place] [address], [place] [id number] Dec, 2014 [facility] [address] [id number] [address] [place] [address], [place] [address] Oct, [facility] [address] [id number] [address] [place] [address], [place] [address] Oct, [facility] [address] [id number] [address] [place] [address], [place] [address] Oct, [facility] [address] [id number] [address] [place] [address], [place] [address] Oct, [facility] [address] [id number] [address] [place] [address], [place] [address] Oct, [facility] [address] [id number] [address] [place] [address], [place] [address] Oct, [facility] [address] [id number] [address] [place] [address], [place] [address] Oct, [facility] [address] [id number] [address] [place] [address], [place] [address] Oct, [facility] [address] [id number] [address] [place] [address], [place] [address] Oct, [facility] [address] [id number] [address] [place] [address], [place] [address] Oct, [facility] [address] [id number] [address] [place] [address], [place] [address] Oct, [facility] [address] [id number] [address] [place] [address], [place] [address] Oct, [facility] [address] [id number] [address] [place] [address], [place] [address] Oct, [facility] [address] [id number] [address] [place] [address], [place] [address] Oct, [facility] [address] [id number] [address] [place] [address], [place] [address] Sep, [facility] [address] [id number] [address] [place] [address], [place] [address] Sep, [facility] [address] [id number] [address] [place] [address], [place] [address] Sep, [facility] [address] [id number] [address] [place] [address], [place] [address] Sep, [facility] [address] [id number] [address] [place] [address], [place] [address] Sep, [facility] [address] [id number] [address] [place] [address], [place] [address] Sep, [facility] [address] [id number] [address] [place] [address], [place] [address] Sep, [facility] [address] [id number] [address] [place] [address], [place] [address] Sep, [facility] [address] [id number] [address] [place] [address], [place] [address] Sep, [facility] [address] [id number] [address] [place] [address], [place] [address] Aug, [facility] [address] [id number] [address] [place] [address], [place] [address] Aug, [facility] [address] [id number] [address] [place] [address], [place] [address] Aug, [facility] [address] [id number] [address] [place] [address], [place] [address] Aug, [facility] [address] [id number] [address] [place] [address], [place] [address] 16 Aug, 2014 [facility] [address] [id number] [address] [place] [address], [place] [address] Aug, [facility] [address] [id number] [address] [place] [address], [place] [address] Aug, [facility] [address] [id number] [address] [place] [address], [place] [address] Aug, [facility] [address] [id number] [address] [place] [address], [place] [address] Aug, [facility] [address] [id number] [address] [place] [address], [place] [address] Jul, [facility] [address] [id number] [address] [place] [address], [place] [address] Jul, [facility] [address] [id number] [address] [place] [address], [place] [address] Jul, 2013 [facility] [address] [id number] [address] [place] [address], [place] [address] Jul, 2013 [facility] [address] [id number] [address] [place] [address], [place] [address] Jul, [facility] [address] [id number] [address] [place] [address], [place] [address] Jul, [facility] [address] [id number] [address] [place] [address], [place] [address] Jul, [facility] [address] [id number] [address] [place] [address], [place] [address] Jul, [facility] [address] [id number] [address] [place] [address], [place] [address] Jul, [facility] [address] [id number] [address] [place] [address], [place] [address] Jul, [facility] [address] [id number] [address] [place] [address], [place] [address] Jun, [facility] [address] [id number] [address] [place] [address], [place] [address] Jun, [facility] [address] [id number] [address] [place] [address], [place] [address] Jun, [facility] [address] [id number] [address] [place] [address], [place] [address] Jun, [facility] [address] [id number] [address] [place] [address], [place] [address] Jun, [facility] [address] [id number] [facility] [place] [address] Jun, [facility] [address] [id number] [facility] [place] [address] Jun, [facility] [address] [id number] [facility] [place] [address] Jun, [facility] [address] [id number] [address] [place] [address], [place] [address] Jun, [facility] [address] [id number] [address] [place] [address], [place] [address] Jun, [facility] [address] [id number] [address] [place] [address], [place] [address] Jun, [facility] [address] [id number] [address] [place] [address], [place] [address] Jun, [facility] [address] [id number] [address] [place] [address], [place] [address] May, [facility] [address] [id number] [address] [place] [address], [place] [address] May, [facility] [address] [id number] [address] [place] [address], [place] [address] May, [facility] [address] [id number] [address] [place] [address], [place] [address] May, [facility] [address] [id number] [address] [place] [address], [place] [address] May, [facility] [address] [id number] [address] [place] [address], [place] [address] May, [facility] [address] [id number] [address] [place] [address], [place] [address] March, [facility] [address] [id number] [address] [place] [address], [place] [address] March, [facility] [address] [id number] [address] [place] [address], [place] [address] March, [facility] [address] [id number] [address] [place] [address], [place] [address] March, [facility] [address] [id number] [address] [place] [address], [place] [address] March, [facility] [address] [id number] [address] [place] [address], [place] [address] March, [facility] [address] [id number] [address] [place] [address], [place] [address] Feb, [facility] [address] [id number] [address] [place] [address], [place] [address] Feb, [facility] [address] [id number] [address] [place] [address], [place] [address] Feb, [facility] [address] [id number] [address] [place] [address], [place] [address] Feb, [facility] [address] [id number] [address] [place] [address], [place] [address] Jan, [facility] [address] [id number] [address] [place] [address], [place] [address] Jan, [facility] [address] [id number] [address] [place] [address], [place] [address] Jan, [facility] [address] [id number] [address] [place] [address], [place] [address] Jan, [facility] [address] [id number] [address] [place] [address], [place] [address] Jan, [facility] [address] [id number] [address] [place] [address], [place] [address] Jan, [facility] [address] [id number] [address] [place] [address], [place] [address] Jan, [facility] [address] [id number] [address] [place] [address], [place] [address] Jan, [facility] [address] [id number] [address] [place] [address], [place] [address] Jan, [facility] [address] [id number] [address] [place] [address], [place] [address] Jan, [facility] [address] [id number] [address] [place] [address], [place] [address] Jan, [facility] [address] [id number] [address] [place] [address], [place] [address] Jan, [facility] [address] [id number] [address] [place] [address], [place] [address] Dec, [facility] [address] [id number] [address] [place] [address], [place] [address] Dec, [facility] [address] [id number] [address] [place] [address], [place] [address] Dec, [facility] [address] [id number] [address] [place] [address], [place] [address] Dec, [facility] [address] [id number] [address] [place] [address], [place] [address] Dec, [facility] [address] [id number] [address] [place] [address], [place] [address] Dec, [facility] [address] [id number] [address] [place] [address], [place] [address] Nov, [facility] [address] [id number] [address] [place] [address], [place] [address] Nov, [facility] [address] [id number] [address] [place] [address], [place] [address] Oct, [facility] [address] [id number] [address] [place] [address], [place] [address] Oct, [facility] [address] [id number] [address] [place] [address], [place] [address] Oct, [facility] [address] [id number] [address] [place] [address], [place] [address] Oct, [facility] [address] [id number] [address] [place] [address], [place] [address] Oct, [facility] [address] [id number] [address] [place] [address], [place] [address] Oct, [facility] [address] [id number] [address] [place] [address], [place] [address] Sep, [facility] [address] [id number] [address] [place] [address], [place] [address] Sep, [facility] [address] [id number] [address] [place] [address], [place] [address] Sep, [facility] [address] [id number] [address] [place] [address], [place] [address] Sep, [facility] [address] [id number] [address] [place] [address], [place] [address] Aug, [facility] [address] [id number] [address] [place] [address], [place] [address] Aug, [facility] [address] [id number] [address] [place] [address], [place] [address] Aug, [facility] [address] [id number] [address] [place] [address], [place] [address] Jul, [facility] [address] [id number] [address] [place] [address], [place] [address] 14 Jul, 2013 [facility] [address] [id number] [address] [place] [address], [place] [address] Jul, [facility] [address] [id number] [address] [place] [address], [place] [address] Jun, [facility] [address] [id number] [address] [place] [address], [place] [address] Jun, [facility] [address] [id number] [address] [place] [address], [place] [address] Jun, [facility] [address] [id number] [address] [place] [address] Apr, [facility] [address] [id number] [address] [place] [address], [place] [address] Apr, [facility] [address] [id number] [address] [place] [address], [place] [address] March, [facility] [address] [id number] [address] [place] [address], [place] [address] March, [facility] [address] [id number] [address] [place] [address], [place] [address] March, [facility] [address] [id number] [address] [place] [address], [place] [address] March, [facility] [address] [id number] [address] [place] [address], [place] [address] Feb, [facility] [address] [id number] [address] [place] [address], [place] [address] Jan, [facility] [address] [id number] [address] [place] [address], [place] [address] Dec, [facility] [address] [id number] [address] [place] [address], [place] [address] Dec, [facility] [address] [id number] [address] [place] [address], [place] [address] Dec, [facility] [address] [id number] [address] [place] [address], [place] [address] Nov, [facility] [address] [id number] [address] [place] [address], [place] [address] Oct, [facility] [address] [id number] [address] [place] [address], [place] [address] Oct, [facility] [address] [id number] [address] [place] [address], [place] [address] Sep, [facility] [address] [id number] [address] [place] [address], [place] [address] Sep, [facility] [address] [id number] [address] [place] [address], [place] [address] Sep, [facility] [address] [id number] [address] [place] [address], [place] [address] Sep, [facility] [address] [id number] [address] [place] [address], [place] [address] Sep, [facility] [address] [id number] [address] [place] [address], [place] [address] Sep, [facility] [address] [id number] [address] [place] [address], [place] [address] Sep, [facility] [address] [id number] [address] [place] [address], [place] [address] Aug, [facility] [address] [id number] [address] [place] [address], [place] [address] Aug, [facility] [address] [id number] [address] [place] [address], [place] [address] Aug, [facility] [address] [id number] [address] [place] [address], [place] [address] Aug, [facility] [address] [id number] [address] [place] [address], [place] [address] Aug, [facility] [address] [id number] [address] [place] [address], [place] [address] Aug, [facility] [address] [id number] [address] [place] [address], [place] [address] Aug, [facility] [address] [id number] [address] [place] [address], [place] [address] Aug, [facility] [address] [id number] [address] [place] [address], [place] [address] Jul, [facility] [address] [id number] [address] [place] [address], [place] [address] Jul, [facility] [address] [id number] [address] [place] [address], [place] [address] Jun, [facility] [address] [id number] [address] [place] [address], [place] [address] May, [facility] [address] [id number] [address] [place] [address], [place] [address] Apr, [facility] [address] [id number] [address] [place] [address], [place] [address] Apr, [facility] [address] [id number] [address] [place] [address], [place] [address] Apr, [facility] [address] [id number] [address] [place] [address], [place] [address] March, [facility] [address] [id number] [address] [place] [address], [place] [address] March, [facility] [address] [id number] [address] [place] [address], [place] [address] March, [facility] [address] [id number] [address] [place] [address], [place] [address] March, [facility] [address] [id number] [address] [place] [address], [place] [address] March, [facility] [address] [id number] [address] [place] [address], [place] [address] March, [facility] [address] [id number] [address] [place] [address], [place] [address] March, [facility] [address] [id number] [address] [place] [address], [place] [address] Jan, [facility] [address] [id number] [address] [place] [address], [place] [address] Jan, [facility] [address] [id number] [address] [place] [address], [place] [address] Jan, [facility] [address] [id number] [address] [place] [address], [place] [address] Jan, [facility] [address] [id number] [address] [place] [address], [place] [address] Jan, [facility] [address] [id number] [address] [place] [address], [place] [address] 08 Dec, 2011 [facility] [address] [id number] [address] [place] [address], [place] [address] 06 Dec, 2011 [facility] [address] [id number] [address] [place] [address], [place] [address] Nov, [facility] [address] [id number] [address] [place] [address], [place] [address] Nov, [facility] [address] [id number] [address] [place] [address], [place] [address] Nov, [facility] [address] [id number] [address] [place] [address], [place] [address] Nov, [facility] [address] [id number] [address] [place] [address], [place] [address] Oct, [facility] [address] [id number] [address] [place] [address], [place] [address] Oct, [facility] [address] [id number] [address] [place] [address], [place] [address] 14 Sep, 2011 [facility] [address] [id number] [address] [place] [address], [place] [address] Sep, [facility] [address] [id number] [address] [place] [address], [place] [address] 10 Sep, 2011 [facility] [address] [id number] [address] [place] [address], [place] [id number] 11 May, 2011 [facility] [address] [id number] [address] [place] [address], [place] [id number] 20 Nov, 2010 [facility] [address] [id number] [address] [place] [address], [place] [id number] 29 Oct, 2010 [facility] [address] [id number] [address] [place] [address], [place] [id number] 14 Oct, 2010 [facility] [address] [id number] [address] [place] [address], [place] [address] 08 Oct, 2010 [facility] [address] [id number] [address] [place] [address], [place] [phone] 15 Sep, 2010 [facility] [address] [id number] [address] [place] [address], [place] [id number] 02 Sep, 2010 [facility] [address] [id number] [address] [place] [address], [place] [id number] 20 Aug, 2010 [facility] [address] [id number] [address] [place] [address], [place] [address] March, [facility] [address] [id number] [address] [place] [address], [place] [id number] 17 Oct, 2009 [facility] [address] [id number] [address] [place] [address], [place] [id number] 17 Oct, 2009 [facility] [address] [id number] [address] [place] [phone] Oct, [facility] [address] [id number] [address] [place] [address], [place] [id number] Oct, [facility] [address] [id number] [address] [place] [phone] Sep, [facility] [address] [id number] [address] [place] [phone] Sep, [facility] [address] [id number] [address] [place] [id number] 04 Sep, 2009 [facility] [address] [id number] [address] [place] [phone] 27 Aug, 2009 [facility] [address] [id number] [address] [place] [id number] 24 Aug, 2009 [facility] [address] [id number] [address] [place] [phone] Aug, [facility] [address] [id number] [address] [place] [phone] Jan, IMMUNIZATIONS No Known Immunizations SOCIAL HISTORY Never Assessed REASON FOR VISIT Transition of care - Ml [place] , rash all over for a year or better Ml [place] , b oth hands going numb and tingling x 6-7 months Ml [place] , keeps getting weake r and losing weight [facility]l [place] , when going to urinate he cant stop when he goes - has bowel issues too has to wear depends Ml [place] , stomach / heartburn/ [place] & vomiting/ x1 week - tums sometimes helps Nicojorge l [place] , no gallbladder and had hernia fixed last yr Ml [place] PLAN OF CARE Activity Details Follow Up 3 Months Reason: VITAL SIGNS Height 69 in 2018-09-20 Weight 179 lbs 2018-09-20 Temperature 97.4 degrees Fahrenheit 2018-09-20 Heart Rate 97 bpm 2018-09-20 Respiratory Rate 20 2018-09-20 BMI 26.43 kg/m2 2018-09-20 Blood pressure systolic 120 mmHg 2018-09-20 Blood pressure diastolic 68 mmHg 2018-09-20 MEDICATIONS Medication Instructions Dosage Frequency Start Date End Date Duration S tatus Viberzi 75 MG Orally Twice a day 1 tablet with food 12h Sep, Active Dicyclomine HCl 20 mg Orally 4 times a day TAKE ONE TABLET B Y MOUTH FOUR TIMES DAILY 6h 90 days Active Gabapentin 300 MG Orally Once a day 1 capsule before bedtime 24h Jan, 90 days Active Pravastatin Sodium 20 mg Orally Once a day 1 tablet 24h March, 90 days Active Welchol 625 MG Orally Once a day 1 capsule 24h Apr, 90 days Active BD Ultra-Fine Micro Pen Needle 32G X 6 MM subcutaneously 3 t imes a day use to inject insulin 8h May, Active Trazodone HCl 50 mg Orally Once a day 1 tablet at bedtime as needed 24h 28 Apr, 2018 30 day(s) Active Omeprazole 20 mg Orally 2 times a day TAKE ONE CAPSULE BY MOUTH TWI CE DAILY 12h 90 days Active Oxybutynin Chloride 5 mg Orally Twice a day 1 tablet 12h 90 days Active Levemir FlexTouch 100 UNIT/ML Subcutaneous 2 times a day INJ ECT 50 UNITS SUBCUTANEOUSLY TWICE DAILY (MUST KEEP APPOINTMENT ON 11/08 FOR REFILLS) 12h Active Hydrocodone-Acetaminophen 5-325 MG Orally 3 times a day 1 tablet as needed 8h Aug, 28 days Active MetFORMIN HCl ER 500 mg Orally twice a day 2 tablets 12h 90 days Active Proventil HFA 108 (90 Base) MCG/ACT Inhalation every 4 hrs 2 puffs as needed 4h 13 May, 2015 12 months Active Reglan 10 mg Orally 2 times a day, before dinner and hs 1 tab Sep, Active Levothyroxine Sodium 150 MCG Orally Once a day on an e mpty stomach with a full glass of water 1 tablet 30 days Active Victoza 18 MG/3ML Subcutaneous Once a day 1.8 mg 24h 12 months Active Lisinopril 10 mg Orally Once a day 1 tablet 24h Jan, 90 days Active RESULTS No Results PROCEDURES No [...]
--- OUTSIDE RECORDS SUMMARY | 2020-06-13 16:19 | XMS REPORT ---
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 Name Role Phone ADRIELPiedad SHARON Unavailable PROBLEMS Type Condition ICD9-CM Code BAJ76-VG Code Onset Dates Condition S tatus SNOMED Code Problem Type 2 diabetes mellitus with hyperglycemia E11.65 Active 02100949 Problem Pulmonary emphysema, unspecified emphysema type J4 3.9 Active 72428523 Problem Essential (primary) hypertension I10 Active 46400300 Problem Hypertriglyceridemia E78.1 Active 059493476 Problem Major depressive disorder, recurrent episode, moderate F33.1 Active 205028697 Problem Recurrent major depressive disorder, in partial remission F33.41 Active 56998455 Problem Current non-adherence to medical treatment Z91.19 Active 0476000 Problem Anxiety disorder, unspecified type F41.9 Active 216843242 Problem Chronic fatigue R53.82 Active 8422 9001 Problem Chronic pain G89.29 Active 0326952 1 Problem Neuropathy G62.9 Active 804352088 Problem Thrombocytosis D47.3 Active 13031 09 Problem Mixed hyperlipidemia E78.2 Active 975620994 Problem Gastroesophageal reflux disease with esophagitis K 21.0 Active 247740621 Problem Hypothyroid E03.9 Active 86844675 Problem Irritable bowel syndrome with diarrhea K58.0 Active 067006226 Problem Overactive bladder N32.81 Active 2 57052395 Problem [facility] current use of insulin Z79.4 Active 633515047 ALLERGIES No Information ENCOUNTERS Encounter Location Date Diagnosis [facility] [address] [facility] [id number] [address] [place] [address] Aug, Chronic pain G89.29 [facility] [address] [facility] [id number] [address] [place] [address] Jul, Chronic pain G89.29 [facility] [address] [facility] [id number] [address] [place] [address] Jun, Type 2 diabetes mellitus wit h hyperglycemia E11.65 ; Neuropathy G62.9 ; Recurrent major depressive disorder, in partial remission F33.41 ; Chronic pain G89.29 and Hypertriglyceridemia E78.1 [facility] [address] [facility] [id number] [address] [place] [address] Jun, Hypothyroid E03.9 [facility] [address] [facility] [id number] [address] [place] [address] Jun, Major depressive disorder, r ecurrent episode, moderate F33.1 and Anxiety disorder, unspecified type F41.9 [facility] [address] [place] [id number] [address] [place] [address] Jun, [place] [address] [place] [id number] [place] [address] Jun, Type 2 diabetes mellitus wit h hyperglycemia E11.65 ; 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 Z79.4 ; Recurrent major depressive disorder, in partial remission F33.41 ; Hypothyroid E03.9 ; Candidal dermatitis B37.2 and Weakness generalized R53.1 [facility] [address] [place] [id number] [address] [place] [id number] May, [facility] [address] [facility] [id number] [address] [place] [address] May, [facility] [address] [place] [id number] [address] [place] [address] May, [facility] [address] [facility] [id number] [address] [place] [address] May, Generalized abdominal pain R 10.84 and Candidal dermatitis B37.2 [facility] [address] [facility] [id number] [address] [place] [address] May, [facility] [address] [facility] [id number] [address] [place] [address] May, [facility] [address] [place] [id number] [address] [place] [address] May, Nodular radiologic density R 93.8 ; Weight loss, unintentional R63.4 and Pulmonary emphysema, unspecified emphysema type J43.9 [place] [address] [facility] [id number] [address] [place] [address] May, Chronic pain G89.29 [facility] [address] [facility] [id number] [address] [place] [address] 09 May, 2018 Syncope and collapse R55 ; C hronic fatigue R53.[address] lung screening R91.8 [facility] [address] [facility] [id number] [address] [place] [address] May, [place] [address] [facility] [id number] [address] [place] [address] Apr, Chronic fatigue R53.82 ; Abn ormal chest CT R93.8 ; Elevated erythrocyte sedimentation rate R70.0 ; Hypothyroid E03.9 and Recurrent major depressive disorder, in partial remission F33.41 [place] [address] [facility] [id number] [address] [place] [address] Apr, Hypothyroid E03.9 [place] [address] [facility] [id number] [address] [place] [address] Apr, Depression F32.9 [facility] [address] [facility] [id number] [address] [place] [address] Apr, [facility] [address] [facility] [id number] [address] [place] [address] March, [facility] [address] [facility] [id number] [address] [place] [address] March, Hypothyroid E03.9 [place] [address] [facility] [id number] [address] [place] [address] March, Diabetes mellitus E11.9 and Hypothyroid E03.9 [facility] [address] [facility] [id number] [address] [place] [address] March, Diabetes mellitus E11.9 [place] [address] [place] [id number] [address] [place] [address] March, Hypothyroid E03.9 and Elevat ed liver enzymes R74.8 [place] [address] [place] [id number] [address] [place] [address] March, Type 2 diabetes mellitus wit h [...] major depressive disorder, in partial remission F33.[address] [address] Feb, Chronic pain G89.[address] [address] Feb, Type 2 diabetes mellitus wit h hyperglycemia E11.65 and Skin lesion of scalp L98.[address] [address] Feb, [place] [address] [place] [id number] [address] [place] [address] Jan, Type 2 diabetes mellitus wit h [...] and Irritable bowel syndrome with diarrhea K58.0 [place] [address] [place] [id number] [address] [place] [address] Jan, [place] [address] [address] Jan, Controlled substance agreeme nt signed Z79.899 [place] [address] [facility] [id number] [address] [place] [address] 08 Dec, 2017 Type 2 diabetes mellitus [...] treatment Z91.19 and Overweight (BMI 25.0-29.9) E66.3 [place] [address] [facility] [id number] [address] [place] [address] 02 Dec, 2017 Controlled substance agreeme nt signed Z79.899 [place] [address] [facility] [id number] [address] [place] [address] Nov, Type 2 diabetes mellitus wit h hyperglycemia E11.65 and Current non- adherence to medical treatment Z91.19 [place] [address] [facility] [id number] [address] [place] [address] Nov, [place] [address] [facility] [id number] [address] [place] [address] Nov, Chronic pain G89.29 [place] [address] [facility] [id number] [address] [place] [address] Nov, [place] [address] [facility] [id number] [address] [place] [address] Nov, Hypothyroid E03.9 [place] [address] [facility] [id number] [address] [place] [address] Nov, Hypothyroid E03.9 [place] [address] [facility] [id number] [address] [place] [address] Nov, Pulmonary emphysema, unspeci fied emphysema type J43.9 and Irritable bowel syndrome with diarrhea K58.0 [facility] [address] [place] [address] Oct, [facility] [address] [facility] [id number] [address] [place] [address] Oct, [place] [address] [place] [id number] [place] [address] Oct, [place] [address] [facility] [id number] [address] [place] [address] Oct, [place] [address] [place] [id number] [place] [address] Oct, Chronic pain G89.29 [place] [address] [place] [id number] [place] [address] Oct, Diabetes mellitus E11.9 ; De pression F32.9 ; Mixed hyperlipidemia E78.2 ; Hypotension, unspecified hypotension type I95.9 ; Pulmonary emphysema, unspecified emphysema type J43.9 and Weight loss, unintentional R63.4 [place] [address] [address] Oct, Chronic pain G89.29 [place] [address] [place] [id number] [address] [place] [address] Sep, Chronic pain G89.29 [place] [address] [place] [address] Sep, Hypothyroid E03.9 and Diabet es mellitus E11.9 [place] [address] [place] [id number] [address] [place] [address] Aug, Type 2 diabetes mellitus wit h hyperglycemia E11.65 ; 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 Z79.4 ; Essential (primary) hypertension I10 ; Hypothyroid E03.9 ; Neuropathy G62.9 ; Chronic pain G89.29 ; Mixed hy perlipidemia E78.2 and Encounter for immunization Z23 [place] [address] [place] [id number] [address] [place] [address] Aug, Chronic pain G89.29 [facility] [address] [id number] [address] [place] [address] Aug, Overactive bladder N32.81 ; Diabetes mellitus E11.9 and Chronic pain G89.29 [facility] [address] [id number] [address] [place] [address] Jul, [facility] [address] [facility] [id number] [address] [place] [address] Jun, [facility] [address] [facility] [id number] [address] [place] [address] Jun, [facility] [address] [facility] [id number] [address] [place] [address] Jun, Hypothyroid E03.9 [facility] [address] [facility] [id number] [address] [place] [address] Jun, Diabetes mellitus E11.9 ; Hy pothyroid E03.9 ; Neuropathy G62.9 ; Chronic pain G89.29 and Neck mass R22.1 [facility] [address] [facility] [id number] [address] [place] [address] Apr, [facility] [address] [facility] [id number] [address] [place] [address] Apr, Acute cystitis without hemat uria N30.00 [facility] [address] [facility] [id number] [address] [place] [address] March, [facility] [address] [id number] [address] [place] [address] March, [facility] [address] [facility] [id number] [address] [place] [address] March, Near syncope R55 [facility] [address] [facility] [id number] [address] [place] [address] Feb, [facility] [address] [facility] [id number] [address] [place] [address] Feb, Chronic pain G89.29 [facility] [address] [place] [address] Feb, [facility] [address] [place] [id number] [address] [place] [address] Feb, [facility] [address] [address] Jan, Chronic pain G89.29 [facility] [address] [address] Jan, [facility] [address] [address] Jan, [facility] [address] [address] Jan, Diabetes mellitus E11.9 ; Hy pothyroid E03.9 ; GERD (gastroesophageal reflux disease) K21.9 ; Insomnia G47.00 ; Functional 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 ; Neuropathy G62.9 ; Depression F32.9 ; Chronic pain G89.29 ; Irritable bowel syndrome with diarrhea K58.0 ; Overactive bladder N32.81 ; Mixed hyperlipidemia E78.2 and Bronchitis J40 [facility] [address] [place] [id number] [address] [place] [address] Dec, [facility] [address] [place] [address] Dec, [facility] [address] [place] [id number] [address] [place] [address] Dec, [facility] [address] [place] [id number] [address] [place] [address] Dec, [facility] [address] [place] [id number] [address] [place] [address] Dec, Chronic pain G89.29 [facility] [address] [place] [id number] [address] [place] [address] Dec, [place] [address] [place] [id number] [address] [place] [address] Dec, [facility] [address] [address] Dec, Type 2 diabetes mellitus wit h foot ulcer E11.621 [facility] [address] [place] [address] 17 Dec, 2016 Type 2 diabetes mellitus wit h foot ulcer E11.621 [place] [address] [place] [id number] [address] [place] [address] 14 Dec, 2016 HTN (hypertension) I10 ; Dep ression F32.9 ; Type 2 diabetes mellitus with foot ulcer E11.621 ; Functional 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 ; Irritable bowel syndrome with diarrhea K58.0 ; Chronic pain G89.29 ; Insomnia G47.00 ; Overactive bladder N32.81 ; Mixed hyperlipidemia E78.2 ; Gastroesophageal reflux disease with esophagitis K21.0 and Acquired hypothyroidism E03.9 [place] [address] [place] [id number] [address] [place] [address] Nov, [place] [address] [address] Oct, [place] [address] [address] Oct, [place] [address] [address] Oct, [place] [address] [place] [address] Sep, Functional diarrhea K59.1 ; HTN (hypertension) I10 ; Diabetes mellitus E11.9 ; Depression F32.9 ; Overactive bladder N32.81 ; Mixed hyperlipidemia E78.2 ; Gastroesophageal reflux disease without esophagitis K21.9 ; Chronic pain G89.29 ; Insomnia G47.00 and Acquired hypothyroidism E03.9 [place] [address] [place] [id number] [address] [place] [address] 04 Sep, 2016 [place] [address] [place] [address] 11 Aug, 2016 Encounter for immunization Z 23 [facility] [address] [place] [id number] [address] [place] [address] 06 Aug, 2016 [place] [address] [address] 09 Jul, 2016 [place] [address] [address] 11 Jun, 2016 Type 2 diabetes mellitus wit hout complications E11.9 ; HTN (hypertension) I10 ; Hypothyroid E03.9 ; Neuropathy G62.9 ; Depression F32.9 ; Chronic pain G89.29 ; GERD (gastroesophageal reflux disease) K21.9 ; Insomnia G47.00 ; Overactive bladder N32.81 ; Mixed hyperlipidemia E78.2 ; Diarrhea of infectious origin A09 and Environmental allergies Z91.09 [place] [address] [place] [id number] [address] [place] [address] Apr, [place] [address] [address] March, Hypothyroidism, unspecified E03.9 and Mixed hyperlipidemia E78.2 [place] [address] [place] [id number] [address] [place] [address] March, Diabetes mellitus E11.9 ; HT N (hypertension) I10 ; Hypothyroid E03.9 ; Depression F32.9 ; Overactive bladder N32.81 ; Other chronic pain G89.29 ; Lumbago with sciatica, unspecified side M54.40 ; Environmental allergies Z91.09 and Gastroesophageal reflux disease, esophagitis presence not specified K21.9 [place] [address] [place] [id number] [address] [place] [address] March, [place] [address] [place] [id number] [address] [place] [address] Jan, HTN (hypertension) I10 ; Hyp othyroid E03.9 ; Neuropathy G62.9 ; Diabetes mellitus E11.9 ; Chronic pain G89.29 ; GERD (gastroesophageal reflux disease) K21.9 ; Overactive bladder N32.81 and Depression F32.9 [place] [address] [address] 12 Dec, 2015 Ear pain, left H92.02 ; HTN (hypertension) I10 ; Hypothyroid E03.9 ; Neuropathy G62.9 ; Diabetes mellitus E11.9 ; Depression F32.9 ; GERD (gastroesophageal reflux disease) K21.9 ; Insomnia G47.00 and Overactive bladder N32.81 [place] [address] [address] Nov, Overactive bladder N32.81 an d Chronic pain G89.29 [place] [address] [address] Nov, Kidney failure N19 [place] [address] [address] Nov, [place] [address] [address] Nov, [place] [address] [address] Nov, Diabetes mellitus E11.9 ; De pression F32.9 ; Chronic pain G89.29 ; GERD (gastroesophageal reflux disease) K21.9 ; Insomnia G47.00 ; HTN (hypertension) I10 ; Hypothyroid E03.9 ; COPD (chronic obstructive pulmonary disease) J44.9 ; Bladder incontinence R32 and Incontinence R32 [place] [address] [place] [address] Sep, Type 2 diabetes mellitus wit h foot ulcer E11.621 and Chromosomal abnormality, 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 [place] [address] [place] [id number] [address] [place] [address] Sep, [place] [address] [address] Aug, [address] [address] Aug, [address] [address] Aug, HTN (hypertension) I10 ; Enc ounter for immunization Z23 ; Hypothyroid E03.9 ; Neuropathy G62.9 ; Diabetes mellitus E11.9 ; Depression F32.9 ; Chronic pain G89.29 ; GERD (gastroesophageal reflux disease) K21.9 ; Insomnia G47.00 and COPD (chronic obstructive pulmonary disease) J44.[address] [address] Jun, [address] [address] Jun, [address] [address] May, Essential hypertension, ivis gn 401.1 ; Unspecified hypothyroidism 244.9 ; Insomnia, unspecified 780.52 ; Shortness of breath 786.05 ; Depression 311 ; COPD (chronic obstructive pulmonary disease) 496 ; GERD (gastroesophageal reflux disease) 530.81 and Diabetes 1.5, 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 [address] May, [address] [address] May, [address] [address] May, Shortness of breath 786.05 ; Essential hypertension, benign 401.1 ; Diabetes mellitus 250.00 ; Hyperlipidemia 272.4 ; Hypothyroid 244.9 ; Insomnia 780.52 and Cough 786.[address] [address] Apr, [place] [address] [place] [address] March, Shortness of breath 786.05 ; Nausea with vomiting 787.01 ; Essential hypertension, benign 401.1 ; Diabetes mellitus 250.00 ; Hyperlipidemia 272.4 and Hypothyroid 244.9 [facility] [address] [id number] [address] [place] [address] 14 Feb, 2015 [facility] [address] [id number] [address] [place] [address] Feb, [facility] [address] [id number] [address] [place] [address] Jan, [facility] [address] [id number] [address] [place] [address] Jan, [facility] [address] [facility] [id number] [address] [place] [address] Jan, [facility] [address] [id number] [address] [place] [address] Jan, [facility] [address] [id number] [address] [place] [address] Jan, [facility] [address] [id number] [address] [place] [address] Jan, [facility] [address] [facility] [id number] [address] [place] [address] Jan, [facility] [address] [id number] [address] [place] [address] Jan, [facility] [address] [id number] [address] [place] [address] Jan, [facility] [address] [id number] [address] [place] [address] Jan, [facility] [address] [id number] [address] [place] [address] Dec, [facility] [address] [id number] [address] [place] [address] Dec, 2014 [facility] [address] [id number] [address] [place] [address], [place] [address] Dec, 2014 [facility] [address] [id number] [address] [place] [address], [place] [address] Dec, 2014 [facility] [address] [id number] [address] [place] [address], [place] [address] Dec, 2014 [facility] [address] [id number] [address] [place] [address], [place] [address] Dec, 2014 [facility] [address] [id number] [address] [place] [address], [place] [address] Dec, 2014 [facility] [address] [id number] [address] [place] [address], [place] [address] Dec, 2014 [facility] [address] [id number] [address] [place] [address], [place] [address] Dec, 2014 [facility] [address] [id number] [address] [place] [address], [place] [address] Dec, 2014 [facility] [address] [id number] [address] [place] [address], [place] [address] Oct, [facility] [address] [id number] [address] [place] [address], [place] [address] Oct, [facility] [address] [id number] [address] [place] [address], [place] [address] Oct, [facility] [address] [id number] [address] [place] [address], [place] [address] Oct, [facility] [address] [id number] [address] [place] [address], [place] [address] Oct, [facility] [address] [id number] [address] [place] [address], [place] [address] Oct, [facility] [address] [id number] [address] [place] [address], [place] [address] Oct, [facility] [address] [id number] [address] [place] [address], [place] [address] 05 Oct, 2014 [facility] [address] [id number] [address] [place] [address], [place] [address] Oct, [facility] [address] [id number] [address] [place] [address], [place] [address] Oct, [facility] [address] [id number] [address] [place] [address], [place] [address] Oct, [facility] [address] [id number] [address] [place] [address], [place] [address] Oct, [facility] [address] [id number] [address] [place] [address], [place] [address] Oct, [facility] [address] [id number] [address] [place] [address], [place] [address] Oct, [facility] [address] [id number] [address] [place] [address], [place] [address] Sep, [facility] [address] [address] [id number] [address] [place] [address], [place] [address] Sep, [facility] [address] [id number] [address] [place] [address], [place] [address] Sep, [facility] [address] [id number] [address] [place] [address], [place] [address] Sep, [facility] [address] [id number] [address] [place] [address], [place] [address] Sep, [facility] [address] [id number] [address] [place] [address], [place] [address] Sep, [facility] [address] [id number] [address] [place] [address], [place] [address] Sep, [facility] [address] [id number] [address] [place] [address], [place] [address] Sep, [facility] [address] [id number] [address] [place] [address], [place] [address] Sep, [facility] [address] [id number] [address] [place] [address], [place] [address] Aug, [facility] [address] [id number] [address] [place] [address], [place] [address] Aug, [facility] [address] [id number] [address] [place] [address], [place] [address] Aug, [facility] [address] [id number] [address] [place] [address], [place] [address] Aug, [facility] [address] [id number] [address] [place] [address], [place] [address] 16 Aug, 2014 [facility] [address] [id number] [address] [place] [address], [place] [address] Aug, [facility] [address] [id number] [address] [place] [address], [place] [address] Aug, [facility] [address] [id number] [address] [place] [address], [place] [address] Aug, [facility] [address] [id number] [address] [place] [address], [place] [address] Aug, [facility] [address] [id number] [address] [place] [address], [place] [address] 29 Jul, 2014 [facility] [address] [id number] [address] [place] [address], [place] [address] 29 Jul, 2013 [facility] [address] [id number] [address] [place] [address] 25 Jul, 2013 [facility] [address] [id number] [address] [place] [address], [place] [address] 25 Jul, 2014 [facility] [address] [id number] [address] [place] [address], [place] [address] Jul, 2013 [facility] [address] [id number] [address] [place] [address], [place] [address] Jul, 2013 [facility] [address] [id number] [facility] [place] [address] Jul, [facility] [address] [id number] [facility] [place] [address] Jul, [facility] [address] [id number] [facility] [place] [address] Jul, [facility] [address] [id number] [address] [place] [address], [place] [address] Jul, [facility] [address] [id number] [address] [place] [address], [place] [address] Jun, [facility] [address] [id number] [address] [place] [address], [place] [address] Jun, [facility] [address] [id number] [address] [place] [address], [place] [address] Jun, [facility] [address] [id number] [address] [place] [address], [place] [address] Jun, [facility] [address] [id number] [address] [place] [address], [place] [address] Jun, [facility] [address] [id number] [address] [place] [address], [place] [address] Jun, [facility] [address] [id number] [address] [place] [address], [place] [address] Jun, [facility] [address] [id number] [address] [place] [address], [place] [address] Jun, [facility] [address] [id number] [address] [place] [address], [place] [address] Jun, [facility] [address] [id number] [address] [place] [address], [place] [address] Jun, [facility] [address] [id number] [address] [place] [address], [place] [address] Jun, [facility] [address] [id number] [address] [place] [address], [place] [address] Jun, [facility] [address] [id number] [address] [place] [address], [place] [address] May, [facility] [address] [id number] [address] [place] [address], [place] [address] May, [facility] [address] [id number] [address] [place] [address], [place] [address] May, [facility] [address] [id number] [address] [place] [address], [place] [address] May, [facility] [address] [id number] [address] [place] [address], [place] [address] May, [facility] [address] [id number] [address] [place] [address], [place] [address] May, [facility] [address] [id number] [address] [place] [address], [place] [address] March, [facility] [address] [id number] [address] [place] [address], [place] [address] March, [facility] [address] [id number] [address] [place] [address], [place] [address] March, [facility] [address] [id number] [address] [place] [address], [place] [address] March, [facility] [address] [id number] [address] [place] [address], [place] [address] March, [facility] [address] [id number] [address] [place] [address], [place] [address] March, [facility] [address] [id number] [address] [place] [address], [place] [address] Feb, [facility] [address] [id number] [address] [place] [address], [place] [address] Feb, [facility] [address] [id number] [address] [place] [address], [place] [address] Feb, [facility] [address] [id number] [address] [place] [address], [place] [address] Feb, [facility] [address] [id number] [address] [place] [address], [place] [address] Jan, [facility] [address] [id number] [address] [place] [address], [place] [address] Jan, [facility] [address] [id number] [address] [place] [address], [place] [address] Jan, [facility] [address] [id number] [address] [place] [address], [place] [address] Jan, [facility] [address] [id number] [address] [place] [address], [place] [address] Jan, [facility] [address] [id number] [address] [place] [address], [place] [address] Jan, [facility] [address] [id number] [address] [place] [address], [place] [address] Jan, [facility] [address] [id number] [address] [place] [address], [place] [address] Jan, [facility] [address] [id number] [address] [place] [address], [place] [address] Jan, [facility] [address] [id number] [address] [place] [address], [place] [address] Jan, [facility] [address] [id number] [address] [place] [address], [place] [address] Jan, [facility] [address] [id number] [address] [place] [address], [place] [address] Jan, [facility] [address] [id number] [address] [place] [address], [place] [address] Dec, [facility] [address] [id number] [address] [place] [address], [place] [address] Dec, [facility] [address] [id number] [address] [place] [address], [place] [address] Dec, [facility] [address] [id number] [address] [place] [address], [place] [address] Dec, [facility] [address] [id number] [address] [place] [address], [place] [address] Dec, [facility] [address] [id number] [address] [place] [address], [place] [address] Dec, [facility] [address] [id number] [address] [place] [address], [place] [address] Nov, [facility] [address] [id number] [address] [place] [address], [place] [address] Nov, [facility] [address] [id number] [address] [place] [address], [place] [address] Oct, [facility] [address] [id number] [address] [place] [address], [place] [address] Oct, [facility] [address] [id number] [address] [place] [address], [place] [address] Oct, [facility] [address] [id number] [address] [place] [address], [place] [address] Oct, [facility] [address] [id number] [address] [place] [address], [place] [address] Oct, [facility] [address] [id number] [address] [place] [address], [place] [address] Oct, [facility] [address] [id number] [address] [place] [address], [place] [address] Sep, [facility] [address] [id number] [address] [place] [address], [place] [address] Sep, [facility] [address] [id number] [address] [place] [address], [place] [address] Sep, [facility] [address] [id number] [address] [place] [address], [place] [address] Sep, [facility] [address] [id number] [address] [place] [address], [place] [address] Aug, [facility] [address] [id number] [address] [place] [address], [place] [address] Aug, [facility] [address] [id number] [address] [place] [address], [place] [address] Aug, [facility] [address] [id number] [address] [place] [address], [place] [address] 17 Jul, 2013 [facility] [address] [id number] [address] [place] [address], [place] [address] 14 Jul, 2013 [facility] [address] [id number] [address] [place] [address], [place] [address] Jul, [facility] [address] [id number] [address] [place] [address], [place] [address] Jun, [facility] [address] [id number] [address] [place] [address], [place] [address] Jun, [facility] [address] [id number] [address] [place] [address], [place] [address] Jun, [facility] [address] [id number] [address] [place] [address], [place] [address] Apr, [facility] [address] [id number] [address] [place] [address], [place] [address] Apr, [facility] [address] [id number] [address] [place] [address], [place] [address] March, [facility] [address] [id number] [address] [place] [address], [place] [address] March, [facility] [address] [id number] [address] [place] [address], [place] [address] March, [facility] [address] [id number] [address] [place] [address], [place] [address] March, [facility] [address] [id number] [address] [place] [address], [place] [address] Feb, [facility] [address] [id number] [address] [place] [address], [place] [address] 05 Jan, 2013 [facility] [address] [id number] [address] [place] [address], [place] [address] 13 Dec, 2012 [facility] [address] [id number] [address] [place] [address], [place] [address] 08 Dec, 2012 [facility] [address] [id number] [address] [place] [address], [place] [address] 07 Dec, 2012 [facility] [address] [id number] [address] [place] [address], [place] [address] Nov, [facility] [address] [id number] [address] [place] [address], [place] [address] Oct, [facility] [address] [id number] [address] [place] [address], [place] [address] Oct, [facility] [address] [id number] [address] [place] [address], [place] [address] Sep, [facility] [address] [id number] [address] [place] [address], [place] [address] Sep, [facility] [address] [id number] [address] [place] [address], [place] [address] Sep, [facility] [address] [id number] [address] [place] [address], [place] [address] Sep, [facility] [address] [id number] [address] [place] [address], [place] [address] Sep, [facility] [address] [id number] [address] [place] [address], [place] [address] Sep, [facility] [address] [id number] [address] [place] [address], [place] [address] Sep, [facility] [address] [id number] [address] [place] [address], [place] [address] Aug, [facility] [address] [id number] [address] [place] [address] [address] 16 Aug, 2012 [facility] [address] [id number] [address] [place] [address], [place] [address] 10 Aug, 2012 [facility] [address] [id number] [address] [place] [address], [place] [address] 10 Aug, 2012 [facility] [address] [id number] [address] [place] [address], [place] [address] Aug, [facility] [address] [id number] [address] [place] [address], [place] [address] Aug, [facility] [address] [id number] [address] [place] [address], [place] [address] Aug, [facility] [address] [id number] [address] [place] [address], [place] [address] Aug, [facility] [address] [id number] [address] [place] [address], [place] [address] Jul, [facility] [address] [id number] [address] [place] [address], [place] [address] Jul, [facility] [address] [id number] [address] [place] [address], [place] [address] Jun, [facility] [address] [id number] [address] [place] [address], [place] [address] May, [facility] [address] [id number] [address] [place] [address], [place] [address] Apr, [facility] [address] [id number] [address] [place] [address], [place] [address] Apr, [facility] [address] [id number] [address] [place] [address], [place] [address] Apr, [facility] [address] [id number] [address] [place] [address], [place] [address] March, [facility] [address] [id number] [address] [place] [address], [place] [address] March, [facility] [address] [id number] [address] [place] [address], [place] [address] March, [facility] [address] [id number] [address] [place] [address], [place] [address] March, [facility] [address] [id number] [address] [place] [address], [place] [address] March, [facility] [address] [id number] [address] [place] [address], [place] [address] March, [facility] [address] [id number] [address] [place] [address], [place] [address] March, [facility] [address] [id number] [address] [place] [address], [place] [address] Jan, [facility] [address] [id number] [address] [place] [address], [place] [address] Jan, [facility] [address] [id number] [address] [place] [address], [place] [address] Jan, [facility] [address] [id number] [address] [place] [address], [place] [address] Jan, [facility] [address] [id number] [address] [place] [address], [place] [address] Jan, [facility] [address] [id number] [address] [place] [address], [place] [address] Dec, [facility] [address] [id number] [address] [place] [address], [place] [address] Dec, [facility] [address] [id number] [address] [place] [address], [place] [address] Nov, [facility] [address] [id number] [address] [place] [address], [place] [address] Nov, [facility] [address] [id number] [address] [place] [address], [place] [address] Nov, [facility] [address] [id number] [address] [place] [address], [place] [address] Nov, [facility] [address] [id number] [address] [place] [address], [place] [address] Oct, [facility] [address] [id number] [address] [place] [address], [place] [address] 06 Oct, 2011 [facility] [address] [id number] [address] [place] [address], [place] [address] 14 Sep, 2011 [facility] [address] [id number] [address] [place] [address], [place] [address] 10 Sep, 2011 [facility] [address] [id number] [address] [place] [address], [place] [address] 10 Sep, 2011 [facility] [address] [id number] [address] [place] [address], [place] [address] May, [facility] [address] [id number] [address] [place] [address], [place] [address] 20 Nov, 2010 [facility] [address] [id number] [address] [place] [address], [place] [address] 29 Oct, 2010 [facility] [address] [id number] [address] [place] [address], [place] [address] Oct, [facility] [address] [id number] [address] [place] [address], [place] [address] Oct, [facility] [address] [id number] [address] [place] [address], [place] [address] 15 Sep, 2010 [facility] [address] [id number] [address] [place] [address], [place] [address] Sep, [facility] [address] [id number] [address] [place] [address], [place] [address] Aug, [facility] [address] [id number] [address] [place] [address], [place] [address] March, [facility] [address] [id number] [address] [place] [address], [place] [address] Oct, [facility] [address] [id number] [address] [place] [address] Oct, [facility] [address] [id number] [address] [place] [phone] Oct, [facility] [address] [id number] [address] [place] [phone] Oct, [facility] [address] [id number] [address] [place] [phone] Sep, [facility] [address] [id number] [address] [place] [phone] Sep, [facility] [address] [id number] [address] [place] [phone] Sep, [facility] [address] [id number] [address] [place] [phone] Aug, [facility] [address] [id number] [address] [place] [phone] Aug, [facility] [address] [id number] [address] [place] [phone] Aug, [facility] [address] [id number] [address] [place] [phone] Jan, IMMUNIZATIONS No Known Immunizations SOCIAL HISTORY Never Assessed REASON FOR VISIT Controlled refill PLAN OF CARE VITAL SIGNS MEDICATIONS Medication Instructions Dosage Frequency Start Date End Date Duration S tatus Hydrocodone-Acetaminophen 5-325 MG Orally 3 times a day 1 tablet as needed 8h Aug, 28 days Active RESULTS No Results PROCEDURES [...]
--- OUTSIDE RECORDS SUMMARY | 2020-06-13 16:19 | XMS REPORT ---
Author Author Jah Mckinney Organization [facility] Address [address] [place] [address] Care Team Providers Care Stiff Neck Loader Name Role Phone PATRICIA Mckinney Unavailable PROBLEMS ALLERGIES No Information ENCOUNTERS IMMUNIZATIONS No Known Immunizations SOCIAL HISTORY No smoking Hx information available REASON FOR VISIT PLAN OF CARE VITAL SIGNS MEDICATIONS RESULTS No Results PROCEDURES No Known procedures INSTRUCTIONS MEDICATIONS ADMINISTERED No Known Medications MEDICAL (GENERAL) HISTORY
--- OUTSIDE RECORDS SUMMARY | 2020-06-13 16:20 | XMS REPORT ---
Author Author Jah BURRELL [facility] Address [address] [place] [address] Care Team Providers Care Senior Research Analyst Name Role Phone STEVE BURRELL Unavailable PROBLEMS Type Condition ICD9-CM Code AIG20-KC Code Onset Dates Condition S tatus SNOMED Code Problem Type 2 diabetes mellitus with hyperglycemia E11.65 Active 01016522 Problem Pulmonary emphysema, unspecified emphysema type J4 3.9 Active 88212814 Problem Essential (primary) hypertension I10 Active 84399707 Problem Hypertriglyceridemia E78.1 Active 045682006 Problem Major depressive disorder, recurrent episode, moderate F33.1 Active 928947623 Problem Recurrent major depressive disorder, in partial remission F33.41 Active 87507576 Problem Current non-adherence to medical treatment Z91.19 Active 4188407 Problem Anxiety disorder, unspecified type F41.9 Active 927114160 Problem Chronic fatigue R53.82 Active 8422 9001 Problem Chronic pain G89.29 Active 9214520 1 Problem Neuropathy G62.9 Active 638838063 Problem Thrombocytosis D47.3 Active 60901 09 Problem Mixed hyperlipidemia E78.2 Active 796950931 Problem Gastroesophageal reflux disease with esophagitis K 21.0 Active 542527882 Problem Hypothyroid E03.9 Active 18483042 Problem Irritable bowel syndrome with diarrhea K58.0 Active 544046534 Problem Overactive bladder N32.81 Active 2 38977132 Problem senior living current use of insulin Z79.4 Active [id number] ALLERGIES No Information ENCOUNTERS Encounter Location Date Diagnosis [facility] [address] [facility] [id number] [address] [place] [address] Jun, Type 2 diabetes mellitus wit h hyperglycemia E11.65 ; Neuropathy G62.9 ; Recurrent major depressive disorder, in partial remission F33.41 ; Chronic pain G89.29 and Hypertriglyceridemia E78.1 [facility] [address] [facility] [id number] [address] [place] [id number] Jun, Hypothyroid E03.9 [facility] [address] [id number] [address] [place] [id number] Jun, Major depressive disorder, r ecurrent episode, moderate F33.1 and Anxiety disorder, unspecified type F41.9 [facility] [address] [facility] [id number] [address] [place] [id number] Jun, [place] [address] [address] [facility] [id number] [address] [place] [address] Jun, Type 2 diabetes mellitus wit h hyperglycemia E11.65 ; senior living current use of insulin Z79.4 ; Recurrent major depressive disorder, in partial remission F33.41 ; Hypothyroid E03.9 ; Candidal dermatitis B37.2 and Weakness generalized R53.1 [place] [address] [facility] [id number] [address] [place] [address] May, [place] [address] [address] [facility] [id number] [address] [place] [address] May, [place] [address] [address] [facility] [id number] [address] [place] [address] May, [place] [address] [address] [facility] [id number] [address] [place] [address] May, Generalized abdominal pain R 10.84 and Candidal dermatitis B37.2 [place] [address] [address] [facility] [id number] [address] [place] [id number] May, [place] [address] [address] [facility] [id number] [address] [place] [address] May, [place] [address] [address] [facility] [id number] [address] [place] [address] May, Nodular radiologic density R 93.8 ; Weight loss, unintentional R63.4 and Pulmonary emphysema, unspecified emphysema type J43.9 [place] [address] [facility] [id number] [address] [place] [address] May, Chronic pain G89.29 [facility] [address] [id number] [address] [place] [id number] 09 May, 2018 Syncope and collapse R55 ; C hronic fatigue R53.[address] lung screening R91.8 [facility] [address] [id number] [address] [place] [id number] May, [facility] [address] [facility] [id number] [address] [place] [address] Apr, Chronic fatigue R53.82 ; Abn ormal chest CT R93.8 ; Elevated erythrocyte sedimentation rate R70.0 ; Hypothyroid E03.9 and Recurrent major depressive disorder, in partial remission F33.41 [facility] [address] [facility] [id number] [address] [place] [id number] Apr, Hypothyroid E03.9 [facility] [address] [facility] [id number] [address] [place] [address] Apr, Depression F32.9 [facility] [address] [facility] [id number] [address] [place] [address] Apr, [facility] [address] [facility] [id number] [address] [place] [address] March, [facility] [address] [facility] [id number] [address] [place] [id number] March, Hypothyroid E03.9 [facility] [address] [facility] [id number] [address] [place] [id number] March, Diabetes mellitus E11.9 and Hypothyroid E03.9 [facility] [address] [facility] [id number] [address] [place] [id number] March, Diabetes mellitus E11.9 [facility] [address] [facility] [id number] [address] [place] [address] March, Hypothyroid E03.9 and Elevat ed liver enzymes R74.8 [facility] [address] [facility] [id number] [address] [place] [address] March, Type 2 diabetes mellitus wit h hyperglycemia E11.65 ; senior living current use of insulin Z79.4 ; Pulmonary emphysema, unspecified emphysema type J43.9 ; Hypothyroid E03.9 ; Neuropathy G62.9 ; Mixed hyperlipidemia E78.2 ; Chronic pain G89.29 ; Gastroesophageal reflux disease with esophagitis K21.0 ; Irritable bowel syndrome with diarrhea K58.0 ; Overactive bladder N32.81 and Recurrent major depressive disorder, in partial remission F33.41 [place] [address] [address] [place] [id number] [address] [place] [address] Feb, Chronic pain G89.29 [place] [address] [address] [place] [id number] [address] [place] [address] Feb, Type 2 diabetes mellitus wit h hyperglycemia E11.65 and Skin lesion of scalp L98.9 [place] [address] [address] [place] [id number] [address] [place] [id number] Feb, [place] [address] [address] [place] [id number] [address] [place] [address] Jan, Type 2 diabetes mellitus wit h hyperglycemia E11.65 ; senior living current use of insulin Z79.4 ; Essential (primary) hypertension I10 ; Pulmonary emphysema, unspecified emphysema type J43.9 ; Chronic pain G89.29 ; Controlled substance agreement signed Z79.899 ; Hypothyroid E03.9 ; Neuropathy G62.9 ; Gastroesophageal reflux disease with esophagitis K21.0 ; Overactive bladder N32.81 ; Depression F32.9 and Irritable bowel syndrome with diarrhea K58.0 [place] [address] [facility] [id number] [address] [place] [id number] Jan, [place] [address] [address] [facility] [id number] [address] [place] [address] Jan, Controlled substance agreeme nt signed Z79.899 [place] [address] [address] [facility] [id number] [address] [place] [address] Dec, Type 2 diabetes mellitus wit h [...] treatment Z91.19 and Overweight (BMI 25.0-29.9) E66.3 [place] [address] [id number] [place] [id number] 02 Dec, 2018 Controlled substance agreeme nt signed Z79.899 [place] [address] [address] Nov, Type 2 diabetes mellitus wit h hyperglycemia E11.65 and Current non- adherence to medical treatment Z91.19 [place] [address] [address] [place] [id number] [address] [place] [address] Nov, [place] [address] [address] [place] [id number] [address] [place] [address] Nov, Chronic pain G89.29 [place] [address] [address] [place] [id number] [address] [place] [address] Nov, [place] [address] [id number] [place] [address] Nov, Hypothyroid E03.9 [place] [address] [address] [place] [id number] [address] [place] [address] Nov, Hypothyroid E03.9 [place] [address] [address] [place] [id number] [address] [place] [id number] Nov, Pulmonary emphysema, unspeci fied emphysema type J43.9 and Irritable bowel syndrome with diarrhea K58.0 [place] [address] [address] [place] [id number] [address] [place] [phone] Oct, [place] [address] [address] [place] [id number] [address] [place] [phone] Oct, [place] [address] [address] [place] [id number] [address] [place] [address] Oct, [place] [address] [address] Oct, [place] [address] [address] [place] [id number] [address] [place] [address] Oct, Chronic pain G89.29 [place] [address] [address] Oct, Diabetes mellitus E11.9 ; De pression F32.9 ; Mixed hyperlipidemia E78.2 ; Hypotension, unspecified hypotension type I95.9 ; Pulmonary emphysema, unspecified emphysema type J43.9 and Weight loss, unintentional R63.4 [place] [address] [address] Oct, Chronic pain G89.29 [place] [address] [address] Sep, Chronic pain G89.29 [place] [address] [address] Sep, Hypothyroid E03.9 and Diabet es mellitus E11.9 [place] [address] [address] Aug, Type 2 diabetes mellitus wit h hyperglycemia E11.65 ; 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 ; Essential (primary) hypertension I10 ; Hypothyroid E03.9 ; Neuropathy G62.9 ; Chronic pain G89.29 ; Mixed hy perlipidemia E78.2 and Encounter for immunization Z23 [place] [address] [address] Aug, Chronic pain G89.29 [place] [address] [address] [place] [id number] [address] [place] [address] Aug, Overactive bladder N32.81 ; Diabetes mellitus E11.9 and Chronic pain G89.29 [place] [address] [address] [place] [id number] [address] [place] [id number] Jul, [facility] [address] [facility] [id number] [address] [place] [address] Jun, [facility] [address] [facility] [id number] [address] [place] [id number] Jun, [facility] [address] [facility] [id number] [address] [place] [address] Jun, Hypothyroid E03.9 [facility] [address] [facility] [id number] [address] [place] [address] Jun, Diabetes mellitus E11.9 ; Hy pothyroid E03.9 ; Neuropathy G62.9 ; Chronic pain G89.29 and Neck mass R22.1 [facility] [address] [facility] [id number] [address] [place] [address] Apr, [facility] [address] [facility] [id number] [address] [place] [address] Apr, Acute cystitis without hemat uria N30.00 [facility] [address] [facility] [id number] [address] [place] [id number] March, [facility] [address] [facility] [id number] [address] [place] [id number] March, [facility] [address] [facility] [id number] [address] [place] [phone] March, Near syncope R55 [facility] [address] [facility] [id number] [address] [place] [address] Feb, [facility] [address] [facility] [id number] [address] [place] [address] Feb, Chronic pain G89.29 [facility] [address] [facility] [id number] [address] [place] [id number] Feb, [facility] [address] [facility] [id number] [address] [place] [address] Feb, [facility] [address] [place] [id number] [address] [place] [address] Jan, Chronic pain G89.29 [facility] [address] [address] Jan, [facility] [address] [address] 16 Jan, 2017 [facility] [address] [address] 14 Jan, 2017 Diabetes mellitus E11.9 ; Hy pothyroid E03.9 ; GERD (gastroesophageal reflux disease) K21.9 ; Insomnia G47.00 ; Functional diarrhea K59.1 ; Neuropathy G62.9 ; Depression F32.9 ; Chronic pain G89.29 ; Irritable bowel syndrome with diarrhea K58.0 ; Overactive bladder N32.81 ; Mixed hyperlipidemia E78.2 and Bronchitis J40 [facility] [address] [address] Dec, [facility] [address] [address] Dec, [facility] [address] [address] Dec, [facility] [address] [address] Dec, [facility] [address] [address] Dec, Chronic pain G89.29 [facility] [address] [address] Dec, [facility] [address] [address] Dec, [facility] [address] [address] Dec, Type 2 diabetes mellitus wit h foot ulcer E11.621 [facility] [address] [place] [id number] [address] [place] [address] 17 Dec, 2016 Type 2 diabetes mellitus wit h foot ulcer E11.621 [place] [address] [place] [id number] [place] [address] 14 Dec, 2016 HTN (hypertension) I10 ; Dep ression F32.9 ; Type 2 diabetes mellitus with foot ulcer E11.621 ; Functional diarrhea K59.1 ; Irritable bowel syndrome with diarrhea K58.0 ; Chronic pain G89.29 ; Insomnia G47.00 ; Overactive bladder N32.81 ; Mixed hyperlipidemia E78.2 ; Gastroesophageal reflux disease with esophagitis K21.0 and Acquired hypothyroidism E03.9 [place] [address] [address] Nov, [place] [address] [address] Oct, [place] [address] [address] Oct, [place] [address] [address] Oct, [place] [address] [address] Sep, Functional diarrhea K59.1 ; HTN (hypertension) I10 ; Diabetes mellitus E11.9 ; Depression F32.9 ; Overactive bladder N32.81 ; Mixed hyperlipidemia E78.2 ; Gastroesophageal reflux disease without esophagitis K21.9 ; Chronic pain G89.29 ; Insomnia G47.00 and Acquired hypothyroidism E03.9 [place] [address] [address] Sep, [place] [address] [address] Aug, Encounter for immunization Z 23 [place] [address] [address] Aug, [place] [address] [address] Jul, [place] [address] [address] Jun, Type 2 diabetes mellitus wit hout complications E11.9 ; HTN (hypertension) I10 ; Hypothyroid E03.9 ; Neuropathy G62.9 ; Depression F32.9 ; Chronic pain G89.29 ; GERD (gastroesophageal reflux disease) K21.9 ; Insomnia G47.00 ; Overactive bladder N32.81 ; Mixed hyperlipidemia E78.2 ; Diarrhea of infectious origin A09 and Environmental allergies Z91.09 [place] [address] [address] Apr, [place] [address] [address] March, Hypothyroidism, unspecified E03.9 and Mixed hyperlipidemia E78.2 [place] [address] [address] March, Diabetes mellitus E11.9 ; HT N (hypertension) I10 ; Hypothyroid E03.9 ; Depression F32.9 ; Overactive bladder N32.81 ; Other chronic pain G89.29 ; Lumbago with sciatica, unspecified side M54.40 ; Environmental allergies Z91.09 and Gastroesophageal reflux disease, esophagitis presence not specified K21.9 [place] [address] [address] March, [place] [address] [address] Jan, HTN (hypertension) I10 ; Hyp othyroid E03.9 ; Neuropathy G62.9 ; Diabetes mellitus E11.9 ; Chronic pain G89.29 ; GERD (gastroesophageal reflux disease) K21.9 ; Overactive bladder N32.81 and Depression F32.9 [place] [address] [address] Dec, Ear pain, left H92.02 ; HTN (hypertension) I10 ; Hypothyroid E03.9 ; Neuropathy G62.9 ; Diabetes mellitus E11.9 ; Depression F32.9 ; GERD (gastroesophageal reflux disease) K21.9 ; Insomnia G47.00 and Overactive bladder N32.81 [place] [address] [place] [address] Nov, Overactive bladder N32.81 an d Chronic pain G89.29 [place] [address] [address] [facility] [id number] [address] [place] [address] Nov, Kidney failure N19 [place] [address] [address] [place] [id number] [place] [address] Nov, [place] [address] [place] [id number] [address] [place] [address] Nov, [place] [address] [address] Nov, Diabetes mellitus E11.9 ; De pression F32.9 ; Chronic pain G89.29 ; GERD (gastroesophageal reflux disease) K21.9 ; Insomnia G47.00 ; HTN (hypertension) I10 ; Hypothyroid E03.9 ; COPD (chronic obstructive pulmonary disease) J44.9 ; Bladder incontinence R32 and Incontinence R32 [place] [address] [address] [place] [id number] [address] [place] [address] Sep, Type 2 diabetes mellitus wit h foot ulcer E11.621 and Chromosomal abnormality, 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 [place] [address] [address] [facility] [id number] [address] [place] [id number] Sep, [place] [address] [address] [place] [id number] [address] [place] [address] Aug, [place] [address] [address] [place] [id number] [address] [place] [address] Aug, [place] [address] [address] [place] [id number] [address] [place] [address] Aug, HTN (hypertension) I10 ; Enc ounter for immunization Z23 ; Hypothyroid E03.9 ; Neuropathy G62.9 ; Diabetes mellitus E11.9 ; Depression F32.9 ; Chronic pain G89.29 ; GERD (gastroesophageal reflux disease) K21.9 ; Insomnia G47.00 and COPD (chronic obstructive pulmonary disease) J44.[address] [address] Jun, [place] [address] [address] Jun, [address] [address] May, Essential hypertension, ivis gn 401.1 ; Unspecified hypothyroidism 244.9 ; Insomnia, unspecified 780.52 ; Shortness of breath 786.05 ; Depression 311 ; COPD (chronic obstructive pulmonary disease) 496 ; GERD (gastroesophageal reflux disease) 530.81 and Diabetes 1.5, 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 [address] May, [address] [address] May, [address] [address] May, Shortness of breath 786.05 ; Essential hypertension, benign 401.1 ; Diabetes mellitus 250.00 ; Hyperlipidemia 272.4 ; Hypothyroid 244.9 ; Insomnia 780.52 and Cough 786.[address] [address] Apr, [address] [address] March, Shortness of breath 786.05 ; Nausea with vomiting 787.01 ; Essential hypertension, benign 401.1 ; Diabetes mellitus 250.00 ; Hyperlipidemia 272.4 and Hypothyroid 244.[address] [address] 14 Feb, 2015 [facility] [address] [id number] [address] [place] [address], [place] [address] 13 Feb, 2015 [facility] [address] [id number] [address] [place] [address], [place] [address] 24 Jan, 2015 [facility] [address] [id number] [address] [place] [address], [place] [address] Jan, [facility] [address] [id number] [address] [place] [address], [place] [address] Jan, [facility] [address] [id number] [address] [place] [address], [place] [address] Jan, [facility] [address] [id number] [address] [place] [address], [place] [address] Jan, [facility] [address] [id number] [address] [place] [address], [place] [address] Jan, [facility] [address] [id number] [address] [place] [address], [place] [address] Jan, [facility] [address] [id number] [address] [place] [address], [place] [address] Jan, [facility] [address] [id number] [address] [place] [address], [place] [address] Jan, [facility] [address] [id number] [address] [place] [address], [place] [address] Jan, [facility] [address] [id number] [address] [place] [address], [place] [address] Dec, [facility] [address] [id number] [address] [place] [address], [place] [address] Dec, [facility] [address] [id number] [address] [place] [address], [place] [address] Dec, [facility] [address] [id number] [address] [place] [address], [place] [address] Dec, [facility] [address] [id number] [address] [place] [address], [place] [address] Dec, 2014 [facility] [address] [id number] [address] [place] [address], [place] [address] Dec, 2014 [facility] [address] [id number] [address] [place] [address], [place] [address] Dec, 2014 [facility] [address] [id number] [address] [place] [address], [place] [address] Dec, 2014 [facility] [address] [id number] [address] [place] [address], [place] [address] Dec, 2014 [facility] [address] [id number] [address] [place] [address], [place] [address] Dec, 2014 [facility] [address] [id number] [address] [place] [address], [place] [address] Oct, [facility] [address] [id number] [address] [place] [address], [place] [address] Oct, [facility] [address] [id number] [address] [place] [address], [place] [address] Oct, [facility] [address] [id number] [address] [place] [address], [place] [address] Oct, [facility] [address] [id number] [address] [place] [address], [place] [address] Oct, [facility] [address] [id number] [address] [place] [address], [place] [address] Oct, [facility] [address] [id number] [address] [place] [address], [place] [address] Oct, [facility] [address] [id number] [address] [place] [address], [place] [address] Oct, [facility] [address] [id number] [address] [place] [address], [place] [address] Oct, [facility] [address] [id number] [address] [place] [address], [place] [address] Oct, [facility] [address] [id number] [address] [place] [address], [place] [address] Oct, [facility] [address] [id number] [address] [place] [address], [place] [address] Oct, [facility] [address] [id number] [address] [place] [address], [place] [address] Oct, [facility] [address] [id number] [address] [place] [address], [place] [address] Oct, [facility] [address] [id number] [address] [place] [address], [place] [address] Sep, [facility] [address] [id number] [address] [place] [address], [place] [address] Sep, [facility] [address] [id number] [address] [place] [address], [place] [address] Sep, [facility] [address] [id number] [address] [place] [address], [place] [address] Sep, [facility] [address] [id number] [address] [place] [address], [place] [address] Sep, [facility] [address] [id number] [address] [place] [address], [place] [address] Sep, [facility] [address] [id number] [address] [place] [address], [place] [address] Sep, [facility] [address] [id number] [address] [place] [address], [place] [address] Sep, [facility] [address] [id number] [address] [place] [address], [place] [address] Sep, [facility] [address] [id number] [address] [place] [address], [place] [address] Aug, [facility] [address] [id number] [address] [place] [address], [place] [address] Aug, [facility] [address] [id number] [address] [place] [address], [place] [address] 17 Aug, 2014 [facility] [address] [id number] [address] [place] [address], [place] [address] 17 Aug, 2014 [facility] [address] [id number] [address] [place] [address], [place] [address] 16 Aug, 2014 [facility] [address] [id number] [address] [place] [address], [place] [address] Aug, [facility] [address] [id number] [address] [place] [address], [place] [address] Aug, [facility] [address] [id number] [address] [place] [address], [place] [address] Aug, [facility] [address] [id number] [address] [place] [address], [place] [address] Aug, [facility] [address] [id number] [address] [place] [address], [place] [address] 29 Jul, 2013 [facility] [address] [id number] [address] [place] [address], [place] [address] 29 Sep, 2013 [facility] [address] [id number] [address] [place] [address], [place] [address] 25 Jul, 2013 [facility] [address] [id number] [address] [place] [address], [place] [address] 25 Sep, 2013 [facility] [address] [id number] [address] [place] [address], [place] [address] 25 Sep, 2013 [facility] [address] [id number] [address] [place] [address], [place] [address] 25 Sep, 2013 [facility] [address] [id number] [address] [place] [address], [place] [address] 25 Jul, 2013 [facility] [address] [id number] [address] [place] [address], [place] [address] 25 Sep, 2013 [facility] [address] [id number] [address] [place] [address], [place] [address] Jul, [facility] [address] [id number] [facility] [place] [address] Jul, [facility] [address] [id number] [address] [place] [address], [place] [address] Jun, [facility] [address] [id number] [facility] [place] [address] Jun, [facility] [address] [id number] [address] [place] [address], [place] [address] Jun, [facility] [address] [id number] [address] [place] [address], [place] [address] Jun, [facility] [address] [id number] [address] [place] [address], [place] [address] Jun, [facility] [address] [id number] [address] [place] [address], [place] [address] Jun, [facility] [address] [id number] [address] [place] [address], [place] [address] Jun, [facility] [address] [id number] [address] [place] [address], [place] [address] Jun, [facility] [address] [id number] [address] [place] [address], [place] [address] Jun, [facility] [address] [id number] [address] [place] [address], [place] [address] Jun, [facility] [address] [id number] [address] [place] [address], [place] [address] Jun, [facility] [address] [id number] [address] [place] [address], [place] [address] Jun, [facility] [address] [id number] [address] [place] [address], [place] [address] May, [facility] [address] [id number] [address] [place] [address], [place] [address] May, [facility] [address] [id number] [facility] [place] [address] May, [facility] [address] [id number] [address] [place] [address], [place] [address] May, [facility] [address] [id number] [address] [place] [address], [place] [address] May, [facility] [address] [id number] [address] [place] [address], [place] [address] May, [facility] [address] [id number] [address] [place] [address], [place] [address] March, [facility] [address] [id number] [address] [place] [address], [place] [address] March, [facility] [address] [id number] [address] [place] [address], [place] [address] March, [facility] [address] [id number] [address] [place] [address], [place] [address] March, [facility] [address] [id number] [address] [place] [address], [place] [address] March, [facility] [address] [id number] [address] [place] [address], [place] [address] March, [facility] [address] [id number] [address] [place] [address], [place] [address] Feb, [facility] [address] [id number] [address] [place] [address], [place] [address] Feb, [facility] [address] [id number] [address] [place] [address], [place] [address] Feb, [facility] [address] [id number] [address] [place] [address], [place] [address] Feb, [facility] [address] [id number] [address] [place] [address], [place] [address] Jan, [facility] [address] [id number] [address] [place] [address], [place] [address] Jan, [facility] [address] [id number] [facility] [place] [address] Jan, [facility] [address] [id number] [address] [place] [address], [place] [address] Jan, [facility] [address] [id number] [address] [place] [address], [place] [address] Jan, [facility] [address] [id number] [address] [place] [address], [place] [address] Jan, [facility] [address] [id number] [address] [place] [address], [place] [address] Jan, [facility] [address] [id number] [address] [place] [address], [place] [address] Jan, [facility] [address] [id number] [address] [place] [address], [place] [address] Jan, [facility] [address] [id number] [address] [place] [address], [place] [address] Jan, [facility] [address] [id number] [address] [place] [address], [place] [address] Jan, [facility] [address] [id number] [address] [place] [address], [place] [address] Jan, [facility] [address] [id number] [address] [place] [address], [place] [address] Dec, [facility] [address] [id number] [address] [place] [address], [place] [address] Dec, [facility] [address] [id number] [address] [place] [address], [place] [address] Dec, [facility] [address] [id number] [address] [place] [address], [place] [address] Dec, [facility] [address] [id number] [address] [place] [address], [place] [address] Dec, [facility] [address] [id number] [address] [place] [address], [place] [address] Dec, [facility] [address] [id number] [address] [place] [address], [place] [address] Nov, [facility] [address] [id number] [address] [place] [address], [place] [address] Nov, [facility] [address] [id number] [address] [place] [address], [place] [address] Oct, [facility] [address] [id number] [address] [place] [address], [place] [address] Oct, [facility] [address] [id number] [address] [place] [address], [place] [address] Oct, [facility] [address] [id number] [address] [place] [address], [place] [address] Oct, [facility] [address] [id number] [address] [place] [address], [place] [address] Oct, [facility] [address] [id number] [address] [place] [address], [place] [address] Oct, [facility] [address] [id number] [address] [place] [address], [place] [address] Sep, [facility] [address] [id number] [address] [place] [address], [place] [address] Sep, [facility] [address] [id number] [address] [place] [address], [place] [address] Sep, [facility] [address] [id number] [address] [place] [address], [place] [address] Sep, [facility] [address] [id number] [address] [place] [address], [place] [address] Aug, [facility] [address] [id number] [address] [place] [address], [place] [address] Aug, [facility] [address] [id number] [address] [place] [address], [place] [address] Aug, [facility] [address] [id number] [address] [place] [address], [place] [address] 17 Jul, 2013 [facility] [address] [id number] [address] [place] [address], [place] [address] 14 Jul, 2013 [facility] [address] [id number] [address] [place] [address], [place] [address] 04 Jul, 2013 [facility] [address] [id number] [address] [place] [address], [place] [address] Jun, [facility] [address] [id number] [address] [place] [address], [place] [address] Jun, [facility] [address] [id number] [address] [place] [address], [place] [address] Jun, [facility] [address] [id number] [address] [place] [address], [place] [address] Apr, [facility] [address] [id number] [address] [place] [address], [place] [address] Apr, [facility] [address] [id number] [address] [place] [address], [place] [address] March, [facility] [address] [id number] [address] [place] [address], [place] [address] March, [facility] [address] [id number] [address] [place] [address], [place] [address] March, [facility] [address] [id number] [address] [place] [address], [place] [address] March, [facility] [address] [id number] [address] [place] [address], [place] [address] Feb, [facility] [address] [id number] [address] [place] [address], [place] [address] Jan, [facility] [address] [id number] [address] [place] [address], [place] [address] Dec, [facility] [address] [id number] [address] [place] [address] 08 Dec, 2012 [facility] [address] [id number] [address] [place] [address], [place] [address] Dec, [facility] [address] [id number] [address] [place] [address] Nov, [facility] [address] [id number] [address] [place] [address], [place] [address] Oct, [facility] [address] [id number] [address] [place] [address] Oct, [facility] [address] [id number] [address] [place] [address], [place] [address] Sep, [facility] [address] [id number] [address] [place] [address], [place] [address] Sep, [facility] [address] [id number] [address] [place] [address], [place] [address] Sep, [facility] [address] [id number] [address] [place] [address], [place] [address] Sep, [facility] [address] [id number] [address] [place] [address] Sep, [facility] [address] [id number] [address] [place] [address], [place] [address] Sep, [facility] [address] [id number] [address] [place] [address] Sep, [facility] [address] [id number] [address] [place] [address] Aug, [facility] [address] [id number] [address] [place] [address] Aug, [facility] [address] [id number] [address] [place] [address] Aug, [facility] [address] [id number] [address] [place] [address], [place] [address] 10 Aug, 2012 [facility] [address] [id number] [address] [place] [address], [place] [address] 08 Aug, 2012 [facility] [address] [id number] [address] [place] [address], [place] [address] 08 Aug, 2012 [facility] [address] [id number] [address] [place] [address], [place] [address] Aug, [facility] [address] [id number] [address] [place] [address], [place] [address] Aug, [facility] [address] [id number] [address] [place] [address], [place] [address] Jul, [facility] [address] [id number] [address] [place] [address], [place] [address] Jul, [facility] [address] [id number] [address] [place] [address], [place] [address] Jun, [facility] [address] [id number] [address] [place] [address], [place] [address] May, [facility] [address] [id number] [address] [place] [address], [place] [address] Apr, [facility] [address] [id number] [address] [place] [address], [place] [address] Apr, [facility] [address] [id number] [address] [place] [address], [place] [address] Apr, [facility] [address] [id number] [address] [place] [address], [place] [address] March, [facility] [address] [id number] [address] [place] [address], [place] [address] March, [facility] [address] [id number] [address] [place] [address], [place] [address] March, [facility] [address] [id number] [address] [place] [address], [place] [address] March, [facility] [address] [id number] [address] [place] [address], [place] [address] March, [facility] [address] [id number] [facility] [place] [address] March, [facility] [address] [id number] [address] [place] [address], [place] [address] March, [facility] [address] [id number] [address] [place] [address], [place] [address] Jan, [facility] [address] [id number] [address] [place] [address], [place] [address] Jan, [facility] [address] [id number] [address] [place] [address], [place] [address] Jan, [facility] [address] [id number] [address] [place] [address], [place] [address] Jan, [facility] [address] [id number] [address] [place] [address], [place] [address] Jan, [facility] [address] [id number] [address] [place] [address], [place] [address] Dec, [facility] [address] [id number] [address] [place] [address], [place] [address] Dec, [facility] [address] [id number] [address] [place] [address], [place] [address] Nov, [facility] [address] [id number] [address] [place] [address], [place] [address] Nov, [facility] [address] [id number] [address] [place] [address], [place] [address] Nov, [facility] [address] [id number] [address] [place] [address], [place] [address] Nov, [facility] [address] [id number] [address] [place] [address], [place] [address] Oct, [facility] [address] [id number] [address] [place] [address], [place] [address] Oct, [facility] [address] [id number] [address] [place] [address], [place] [address] 14 Sep, 2011 [facility] [address] [id number] [address] [place] [address], [place] [address] 10 Sep, 2011 [facility] [address] [id number] [address] [place] [address], [place] [address] 10 Sep, 2011 [facility] [address] [id number] [address] [place] [address], [place] [address] 11 May, 2011 [facility] [address] [id number] [address] [place] [address], [place] [address] 20 Nov, 2010 [facility] [address] [id number] [address] [place] [address], [place] [address] 29 Oct, 2010 [facility] [address] [id number] [address] [place] [address], [place] [address] 14 Oct, 2010 [facility] [address] [id number] [address] [place] [address], [place] [address] 08 Oct, 2010 [facility] [address] [id number] [address] [place] [address], [place] [address] 15 Sep, 2010 [facility] [address] [id number] [address] [place] [address], [place] [address] 02 Sep, 2010 [facility] [address] [id number] [address] [place] [address], [place] [address] Aug, [facility] [address] [id number] [address] [place] [address], [place] [address] March, [facility] [address] [id number] [address] [place] [address], [place] [address] Oct, [facility] [address] [id number] [address] [place] [address], [place] [address] Oct, [facility] [address] [id number] [address] [place] [address], [place] [address] Oct, [facility] [address] [id number] [address] [place] [address], [place] [address] Oct, [facility] [address] [id number] [address] [place] [address] Sep, [facility] [address] [id number] [address] [place] [address] Sep, [facility] [address] [id number] [address] [place] [address] Sep, [facility] [address] [id number] [address] [place] [address] Aug, [facility] [address] [id number] [address] [place] [address] Aug, [facility] [address] [id number] [address] [place] [phone] Aug, [facility] [address] [id number] [place] [phone] Jan, IMMUNIZATIONS No Known Immunizations SOCIAL HISTORY Never Assessed REASON FOR VISIT intake PLAN OF CARE Activity Details Follow Up prn Reason: F/U VITAL SIGNS MEDICATIONS Medication Instructions Dosage Frequency Start Date End Date Duration S tatus Oxybutynin Chloride 5 mg Orally Twice a day 1 tablet 12h 90 days Active Nystatin-Triamcinolone 786862-8.1 UNIT/GM Externally Twice a day apply thin layer to rash on legs 12h Jun, Jun, 10 days Active Victoza 18 MG/3ML Subcutaneous Once a day 1.8 mg 24h 12 months Active Levemir FlexTouch 100 UNIT/ML Subcutaneous 2 times a day INJ ECT 50 UNITS SUBCUTANEOUSLY TWICE DAILY (MUST KEEP APPOINTMENT ON 11/08 FOR REFILLS) 12h Active NovoLog Flexpen 100 UNIT/ML Subcutaneous 3 times a day wit meals 10 units Jan, 12 months Not-Taking Gabapentin 300 MG Orally Once a day 1 capsule before bedtime 24h Jan, 90 days Active Pravastatin Sodium 20 mg Orally Once a day 1 tablet 24h March, 90 days Active BD Ultra-Fine Micro Pen Needle 32G X 6 MM subcutaneously 3 t imes a day use to inject insulin 8h May, Active Hydrocodone-Acetaminophen 5-325 MG Orally 3 times a day 1 tablet as needed 8h May, Active Lisinopril 10 mg Orally Once a day 1 tablet 24h 05 Jan, 2018 90 days Active Omeprazole 20 mg Orally 2 times a day TAKE ONE CAPSULE BY MOUTH TWI CE DAILY 12h 90 days Active Trazodone HCl 50 mg Orally Once a day 1 tablet at bedtime as needed 24h 28 Apr, 2018 30 day(s) Active MetFORMIN HCl ER 500 mg Orally twice a day 2 tablets 12h 90 days Active Welchol 625 MG Orally Once a day 1 capsule 24h 21 Apr, 2017 90 days Active Proventil HFA 108 (90 Base) MCG/ACT Inhalation every 4 hrs 2 puffs as needed 4h May, 12 months Active Dicyclomine HCl 20 mg Orally 4 times a day TAKE ONE TABLET B Y MOUTH FOUR TIMES DAILY 6h 90 days Active Levothyroxine Sodium 125 MCG Orally Once a day on an e mpty stomach with a full glass of water 1 tablet Active RESULTS No Results PROCEDURES Procedure Date Ordered Result Body Site Psych diagnostic evaluation, established patient Jun 27, 2018 INSTRUCTIONS MEDICATIONS ADMINISTERED No Known Medications MEDICAL [...]
--- OUTSIDE RECORDS SUMMARY | 2020-06-13 16:20 | XMS REPORT ---
Author Author Jah PARKER Organization [facility] Address [address] [place] [address] Care Team Providers Care Continuous Conveyor Screen Drier Name Role Phone PARKERSHAYLEE MckeonELE Unavailable PROBLEMS Type Condition ICD9-CM Code WES57-AT Code Onset Dates Condition S tatus SNOMED Code Problem Type 2 diabetes mellitus with hyperglycemia E11.65 Active 57281646 Problem Pulmonary emphysema, unspecified emphysema type J4 3.9 Active 93577222 Problem Essential (primary) hypertension I10 Active 88655795 Problem Hypertriglyceridemia E78.1 Active 509318077 Problem Major depressive disorder, recurrent episode, moderate F33.1 Active 834921289 Problem Recurrent major depressive disorder, in partial remission F33.41 Active 30197634 Problem Current non-adherence to medical treatment Z91.19 Active 7234042 Problem Anxiety disorder, unspecified type F41.9 Active 007959112 Problem Chronic fatigue R53.82 Active 8422 9001 Problem Chronic pain G89.29 Active 4548710 1 Problem Neuropathy G62.9 Active 659224547 Problem Thrombocytosis D47.3 Active 57719 09 Problem Mixed hyperlipidemia E78.2 Active 373453376 Problem Gastroesophageal reflux disease with esophagitis K 21.0 Active 619030183 Problem Hypothyroid E03.9 Active 18441887 Problem Irritable bowel syndrome with diarrhea K58.0 Active 424701311 Problem Overactive bladder N32.81 Active 2 45413916 Problem senior living current use of insulin Z79.4 Active 054091154 ALLERGIES No Information ENCOUNTERS Encounter Location Date Diagnosis [facility] [address] [facility] [id number] [address] [place] [address] Jun, Type 2 diabetes mellitus wit h hyperglycemia E11.65 ; Neuropathy G62.9 ; Recurrent major depressive disorder, in partial remission F33.41 ; Chronic pain G89.[address] [facility] [address] [facility] [id number] [address] [place] [address] Jun, Hypothyroid E03.9 [facility] [address] [id number] [address] [place] [address] Jun, Major depressive disorder, r ecurrent episode, moderate F33.1 and Anxiety disorder, unspecified type F41.9 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 ; Recurrent major depressive disorder, in partial remission F33.41 ; Hypothyroid E03.9 ; Candidal dermatitis B37.2 and Weakness generalized R53.1 [place] [address] [facility] [id number] [address] [place] [address] May, [place] [address] [id number] [address] [place] [address] May, [place] [address] [id number] [address] [place] [address] May, [place] [address] [facility] [id number] [address] [place] [address] May, Generalized abdominal pain R 10.84 and Candidal dermatitis B37.2 [place] [id number] [facility] [id number] [address] [place] [address] May, [place] [address] [id number] [address] [place] [address] May, [place] [address] [facility] [id number] [address] [place] [address] May, Nodular radiologic density R 93.8 ; Weight loss, unintentional R63.4 and Pulmonary emphysema, unspecified emphysema type J43.9 [place] [address] [facility] [id number] [address] [place] [address] May, Chronic pain G89.29 [facility] [address] [id number] [address] [place] [phone] 09 May, 2018 Syncope and collapse R55 ; C hronic fatigue R53.[address] lung screening R91.8 [facility] [address] [id number] [address] [place] [address] May, [facility] [address] [id number] [address] [place] [address] Apr, Chronic fatigue R53.82 ; Abn ormal chest CT R93.8 ; Elevated erythrocyte sedimentation rate R70.0 ; Hypothyroid E03.9 and Recurrent major depressive disorder, in partial remission F33.41 [facility] [address] [id number] [address] [place] [address] Apr, Hypothyroid E03.9 [facility] [address] [id number] [address] [place] [address] Apr, Depression F32.9 [facility] [address] [id number] [address] [place] [address] Apr, [facility] [address] [id number] [place] [address] March, [facility] [address] [facility] [id number] [address] [place] [address] March, Hypothyroid E03.9 [facility] [address] [facility] [id number] [address] [place] [address] March, Diabetes mellitus E11.[address] [facility] [address] [id number] [address] [place] [address] March, Diabetes mellitus E11.9 [facility] [address] [facility] [id number] [address] [place] [address] March, Hypothyroid E03.9 and Elevat ed liver enzymes R74.8 [facility] [address] [facility] [id number] [address] [place] [address] March, Type 2 diabetes mellitus wit h [...] disorder, in partial remission F33.41 [place] [id number] [place] [address] Feb, Chronic pain G89.29 [place] [id number] [place] [address] Feb, Type 2 diabetes mellitus wit h hyperglycemia E11.65 and Skin lesion of scalp L98.9 [place] [id number] [address] [place] [address] Feb, [place] [address] [address] Jan, Type 2 diabetes mellitus wit h [...] bowel syndrome with diarrhea K58.0 [place] [address] [place] [id number] [address] [place] [address] Jan, [place] [address] [place] [id number] [address] [place] [address] Jan, Controlled substance agreeme nt signed Z79.899 [place] [address] [place] [id number] [address] [place] [address] Dec, Type 2 diabetes mellitus wit h [...] treatment Z91.19 and Overweight (BMI 25.0-29.9) E66.3 [place] [address] [facility] [id number] [address] [place] [address] 02 Dec, 2017 Controlled substance agreeme nt signed Z79.899 [place] [address] [place] [id number] [address] [place] [address] Nov, Type 2 diabetes mellitus wit h hyperglycemia E11.65 and Current non- adherence to medical treatment Z91.19 [place] [address] [facility] [id number] [address] [place] [address] Nov, [place] [address] [facility] [id number] [address] [place] [address] Nov, Chronic pain G89.29 [place] [address] [place] [id number] [address] [place] [address] Nov, [place] [address] [place] [id number] [address] [place] [address] Nov, Hypothyroid E03.9 [place] [address] [facility] [id number] [address] [place] [address] Nov, Hypothyroid E03.9 [place] [address] [facility] [id number] [address] [place] [address] Nov, Pulmonary emphysema, unspeci fied emphysema type J43.9 and Irritable bowel syndrome with diarrhea K58.0 [place] [address] [facility] [id number] [address] [place] [address] Oct, [place] [address] [place] [id number] [address] [place] [address] Oct, [place] [address] [place] [address] Oct, [place] [address] [facility] [id number] [address] [place] [address] Oct, [place] [address] [place] [id number] [address] [place] [address] Oct, Chronic pain G89.29 [place] [address] [address] Oct, Diabetes mellitus E11.9 ; De pression F32.9 ; Mixed hyperlipidemia E78.2 ; Hypotension, unspecified hypotension type I95.9 ; Pulmonary emphysema, unspecified emphysema type J43.9 and Weight loss, unintentional R63.4 [place] [address] [address] Oct, Chronic pain G89.29 [place] [address] [address] Sep, Chronic pain G89.29 [place] [address] [address] Sep, Hypothyroid E03.9 and Diabet es mellitus E11.9 [place] [address] [address] Aug, Type 2 diabetes mellitus wit h hyperglycemia E11.65 ; 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 [address] [facility] [id number] [address] [place] [address] Jun, [facility] [address] [facility] [id number] [address] [place] [address] Jun, [facility] [address] [facility] [id number] [address] [place] [address] Jun, Hypothyroid E03.9 [facility] [address] [facility] [id number] [address] [place] [address] Jun, Diabetes mellitus E11.9 ; Hy pothyroid E03.9 ; Neuropathy G62.9 ; Chronic pain G89.29 and Neck mass R22.1 [facility] [address] [facility] [id number] [address] [place] [address] Apr, [facility] [address] [facility] [id number] [address] [place] [address] Apr, Acute cystitis without hemat uria N30.00 [facility] [address] [facility] [id number] [address] [place] [address] March, [facility] [address] [facility] [id number] [address] [place] [address] March, [facility] [address] [facility] [id number] [address] [place] [address] March, Near syncope R55 [facility] [address] [facility] [id number] [address] [place] [address] Feb, [facility] [address] [facility] [id number] [address] [place] [address] Feb, Chronic pain G89.29 [facility] [address] [facility] [id number] [address] [place] [address] Feb, [facility] [address] [facility] [id number] [address] [place] [address] Feb, [facility] [address] [place] [id number] [address] [place] [address] Jan, Chronic pain G89.29 [facility] [address] [address] Jan, [facility] [address] [address] 16 Jan, 2017 [facility] [address] [address] 14 Jan, 2017 Diabetes mellitus E11.9 ; Hy pothyroid E03.9 ; GERD (gastroesophageal reflux disease) K21.9 ; Insomnia G47.00 ; Functional diarrhea K59.1 ; Neuropathy G62.9 ; Depression F32.9 ; Chronic pain G89.29 ; Irritable bowel syndrome with diarrhea K58.0 ; Overactive bladder N32.81 ; Mixed hyperlipidemia E78.[address] [facility] [address] [address] Dec, [facility] [address] [place] [id number] [address] [place] [address] Dec, [facility] [address] [address] Dec, [facility] [address] [place] [id number] [address] [place] [address] Dec, [facility] [address] [place] [id number] [address] [place] [address] Dec, Chronic pain G89.29 [facility] [address] [place] [id number] [address] [place] [address] Dec, [facility] [address] [place] [id number] [address] [place] [address] Dec, [facility] [address] [place] [id number] [address] [place] [address] Dec, Type 2 diabetes mellitus wit h foot ulcer E11.621 [place] [id number] [place] [id number] [address] [place] [address] 17 Dec, 2016 Type 2 diabetes mellitus wit h foot ulcer E11.621 [place] [address] [place] [id number] [place] [address] 14 Dec, 2016 HTN (hypertension) I10 ; Dep ression F32.9 ; Type 2 diabetes mellitus with foot ulcer E11.621 ; Functional diarrhea K59.1 ; Irritable bowel syndrome with diarrhea K58.0 ; Chronic pain G89.29 ; Insomnia G47.00 ; Overactive bladder N32.81 ; Mixed hyperlipidemia E78.2 ; Gastroesophageal reflux disease with esophagitis K21.0 and Acquired hypothyroidism E03.9 [place] [address] [address] Nov, [place] [address] [address] Oct, [place] [address] [address] Oct, [place] [address] [address] Oct, [place] [address] [address] Sep, Functional diarrhea K59.1 ; HTN (hypertension) I10 ; Diabetes mellitus E11.9 ; Depression F32.9 ; Overactive bladder N32.81 ; Mixed hyperlipidemia E78.2 ; Gastroesophageal reflux disease without esophagitis K21.9 ; Chronic pain G89.29 ; Insomnia G47.00 and Acquired hypothyroidism E03.9 [place] [address] [address] Sep, [place] [address] [address] Aug, Encounter for immunization Z 23 [place] [address] [address] Aug, [place] [address] [address] Jul, [place] [address] [address] Jun, Type 2 diabetes mellitus wit hout complications E11.9 ; HTN (hypertension) I10 ; Hypothyroid E03.9 ; Neuropathy G62.9 ; Depression F32.9 ; Chronic pain G89.29 ; GERD (gastroesophageal reflux disease) K21.9 ; Insomnia G47.00 ; Overactive bladder N32.81 ; Mixed hyperlipidemia E78.2 ; Diarrhea of infectious origin A09 and Environmental allergies Z91.09 [place] [address] [address] Apr, [place] [address] [address] March, Hypothyroidism, unspecified E03.9 and Mixed hyperlipidemia E78.2 [place] [address] [address] March, Diabetes mellitus E11.9 ; HT N (hypertension) I10 ; Hypothyroid E03.9 ; Depression F32.9 ; Overactive bladder N32.81 ; Other chronic pain G89.29 ; Lumbago with sciatica, unspecified side M54.40 ; Environmental allergies Z91.09 and Gastroesophageal reflux disease, esophagitis presence not specified K21.9 [place] [address] [address] March, [place] [address] [address] Jan, HTN (hypertension) I10 ; Hyp othyroid E03.9 ; Neuropathy G62.9 ; Diabetes mellitus E11.9 ; Chronic pain G89.29 ; GERD (gastroesophageal reflux disease) K21.9 ; Overactive bladder N32.81 and Depression F32.9 [place] [address] [address] Dec, Ear pain, left H92.02 ; HTN (hypertension) I10 ; Hypothyroid E03.9 ; Neuropathy G62.9 ; Diabetes mellitus E11.9 ; Depression F32.9 ; GERD (gastroesophageal reflux disease) K21.9 ; Insomnia G47.00 and Overactive bladder N32.81 [place] [address] [place] [address] Nov, Overactive bladder N32.81 an d Chronic pain G89.29 [place] [address] [place] [id number] [place] [address] Nov, Kidney failure N19 [place] [address] [place] [id number] [place] [address] Nov, [place] [address] [place] [id number] [address] [place] [address] Nov, [place] [address] [address] Nov, Diabetes mellitus E11.9 ; De pression F32.9 ; Chronic pain G89.29 ; GERD (gastroesophageal reflux disease) K21.9 ; Insomnia G47.00 ; HTN (hypertension) I10 ; Hypothyroid E03.9 ; COPD (chronic obstructive pulmonary disease) J44.9 ; Bladder incontinence R32 and Incontinence R32 [place] [address] [place] [address] Sep, Type 2 diabetes mellitus wit h foot ulcer E11.621 and Chromosomal abnormality, 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 [place] [address] [place] [id number] [address] [place] [address] Sep, [place] [address] [place] [id number] [place] [address] Aug, [place] [address] [place] [id number] [address] [place] [address] Aug, [place] [address] [place] [id number] [place] [address] Aug, HTN (hypertension) I10 ; Enc ounter for immunization Z23 ; Hypothyroid E03.9 ; Neuropathy G62.9 ; Diabetes mellitus E11.9 ; Depression F32.9 ; Chronic pain G89.29 ; GERD (gastroesophageal reflux disease) K21.9 ; Insomnia G47.00 and COPD (chronic obstructive pulmonary disease) J44.[address] [address] Jun, [address] [address] Jun, [address] [address] May, Essential hypertension, ivis gn 401.1 ; Unspecified hypothyroidism 244.9 ; Insomnia, unspecified 780.52 ; Shortness of breath 786.05 ; Depression 311 ; COPD (chronic obstructive pulmonary disease) 496 ; GERD (gastroesophageal reflux disease) 530.81 and Diabetes 1.5, 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 [address] May, [address] [address] May, [address] [address] May, Shortness of breath 786.05 ; Essential hypertension, benign 401.1 ; Diabetes mellitus 250.00 ; Hyperlipidemia 272.4 ; Hypothyroid 244.9 ; Insomnia 780.52 and Cough 786.[address] [address] Apr, [address] [address] March, Shortness of breath 786.05 ; Nausea with vomiting 787.01 ; Essential hypertension, benign 401.1 ; Diabetes mellitus 250.00 ; Hyperlipidemia 272.4 and Hypothyroid 244.[address] [address] 14 Feb, 2015 [facility] [address] [id number] [address] [place] [address], [place] [address] Feb, [facility] [address] [id number] [address] [place] [address], [place] [address] Jan, [facility] [address] [id number] [address] [place] [address], [place] [address] Jan, [facility] [place] [facility] [address] [id number] [address] [place] [address], [place] [address] Jan, [facility] [address] [id number] [address] [place] [address], [place] [address] Jan, [facility] [address] [id number] [address] [place] [address], [place] [address] Jan, [facility] [address] [id number] [address] [place] [address], [place] [address] Jan, [facility] [address] [id number] [address] [place] [address], [place] [address] Jan, [facility] [address] [id number] [address] [place] [address], [place] [address] Jan, [facility] [address] [id number] [address] [place] [address], [place] [address] Jan, [facility] [address] [id number] [address] [place] [address], [place] [address] Jan, [facility] [place] [facility] [address] [id number] [address] [place] [address], [place] [address] Dec, [facility] [place] [facility] [address] [id number] [address] [place] [address], [place] [address] Dec, [facility] [place] [facility] [address] [id number] [address] [place] [address], [place] [address] Dec, [facility] [place] [facility] [address] [id number] [address] [place] [address], [place] [address] Dec, [facility] [place] [facility] [address] [id number] [address] [place] [address], [place] [address] Dec, 2014 [facility] [address] [id number] [address] [place] [address], [place] [address] Dec, 2014 [facility] [address] [id number] [address] [place] [address], [place] [address] Dec, 2014 [facility] [place] [facility] [address] [id number] [address] [place] [address], [place] [address] Dec, 2014 [facility] [address] [id number] [address] [place] [address], [place] [address] Dec, 2014 [facility] [address] [id number] [address] [place] [address], [place] [address] Dec, 2014 [facility] [address] [id number] [address] [place] [address], [place] [address] Oct, [facility] [address] [id number] [address] [place] [address], [place] [address] Oct, [facility] [address] [id number] [address] [place] [address], [place] [address] Oct, [facility] [address] [id number] [address] [place] [address], [place] [address] Oct, [facility] [address] [id number] [address] [place] [id number] Oct, [facility] [address] [id number] [address] [place] [id number] Oct, [facility] [address] [id number] [address] [place] [address], [place] [address] Oct, [facility] [address] [id number] [address] [place] [address], [place] [address] Oct, [facility] [address] [id number] [address] [place] [id number] Oct, [facility] [address] [id number] [address] [place] [address], [place] [address] Oct, [facility] [address] [id number] [address] [place] [address], [place] [address] Oct, [facility] [address] [id number] [address] [place] [address], [place] [address] Oct, [facility] [address] [id number] [address] [place] [address], [place] [address] Oct, [facility] [address] [id number] [address] [place] [address], [place] [address] Oct, [facility] [address] [id number] [address] [place] [address], [place] [address] Sep, [facility] [address] [id number] [address] [place] [address], [place] [address] Sep, [facility] [address] [id number] [address] [place] [address], [place] [address] Sep, [facility] [address] [id number] [address] [place] [address], [place] [address] Sep, [facility] [address] [id number] [address] [place] [address], [place] [address] Sep, [facility] [address] [id number] [address] [place] [address], [place] [address] Sep, [facility] [address] [id number] [address] [place] [address], [place] [address] Sep, [facility] [address] [id number] [address] [place] [address], [place] [address] Sep, [facility] [address] [id number] [address] [place] [address], [place] [address] Sep, [facility] [address] [id number] [address] [place] [address], [place] [address] Aug, [facility] [facility] [address] [id number] [address] [place] [address], [place] [address] Aug, [facility] [address] [id number] [address] [place] [address], [place] [address] 17 Aug, 2013 [facility] [address] [id number] [address] [place] [address], [place] [address] 17 Aug, 2014 [facility] [address] [id number] [address] [place] [address], [place] [address] 16 Aug, 2013 [facility] [address] [id number] [address] [place] [address], [place] [address] Aug, [facility] [address] [id number] [address] [place] [address], [place] [address] Aug, [facility] [address] [id number] [address] [place] [address], [place] [address] Aug, [facility] [address] [id number] [address] [place] [address], [place] [address] Aug, [facility] [address] [id number] [address] [place] [address], [place] [address] 29 Jul, 2013 [facility] [address] [id number] [address] [place] [address], [place] [address] 29 Sep, 2013 [facility] [address] [id number] [address] [place] [address], [place] [address] 25 Sep, 2013 [facility] [address] [id number] [address] [place] [address], [place] [address] 25 Sep, 2013 [facility] [address] [id number] [address] [place] [address], [place] [address] 25 Sep, 2013 [facility] [address] [id number] [address] [place] [address], [place] [address] 25 Sep, 2013 [facility] [address] [id number] [address] [place] [address], [place] [address] 25 Jul, 2013 [facility] [address] [id number] [address] [place] [address], [place] [address] 25 Jul, 2013 [facility] [address] [id number] [address] [place] [address], [place] [address] Jul, [facility] [address] [id number] [facility] [place] [address] Jul, [facility] [address] [id number] [facility] [place] [address] Jun, [facility] [address] [id number] [facility] [place] [address] Jun, [facility] [address] [id number] [address] [place] [address], [place] [address] Jun, [facility] [address] [id number] [facility] [place] [address] Jun, [facility] [address] [id number] [address] [place] [address], [place] [address] Jun, [facility] [address] [id number] [address] [place] [address], [place] [address] Jun, [facility] [address] [id number] [address] [place] [address], [place] [address] Jun, [facility] [address] [id number] [address] [place] [address], [place] [address] Jun, [facility] [address] [id number] [address] [place] [address], [place] [address] Jun, [facility] [address] [id number] [address] [place] [address], [place] [address] Jun, [facility] [address] [id number] [address] [place] [address], [place] [address] Jun, [facility] [address] [id number] [address] [place] [address], [place] [address] Jun, [facility] [address] [id number] [address] [place] [address], [place] [address] May, [facility] [address] [id number] [address] [place] [address], [place] [address] May, [facility] [address] [id number] [facility] [place] [address] May, [facility] [address] [id number] [address] [place] [address], [place] [address] May, [facility] [address] [id number] [address] [place] [address], [place] [address] May, [facility] [address] [id number] [address] [place] [address], [place] [address] May, [facility] [address] [id number] [address] [place] [address], [place] [address] March, [facility] [address] [id number] [address] [place] [address], [place] [address] March, [facility] [address] [id number] [address] [place] [address], [place] [address] March, [facility] [address] [id number] [address] [place] [address], [place] [address] March, [facility] [address] [id number] [address] [place] [address], [place] [address] March, [facility] [address] [id number] [address] [place] [address], [place] [address] March, [facility] [address] [id number] [address] [place] [address], [place] [address] Feb, [facility] [address] [id number] [address] [place] [address], [place] [address] Feb, [facility] [address] [id number] [address] [place] [address], [place] [address] Feb, [facility] [address] [id number] [address] [place] [address], [place] [address] Feb, [facility] [address] [id number] [address] [place] [address], [place] [address] Jan, [facility] [address] [id number] [address] [place] [address], [place] [address] Jan, [facility] [address] [id number] [facility] [place] [address] Jan, [facility] [address] [id number] [facility] [place] [address] Jan, [facility] [address] [id number] [facility] [place] [address] Jan, [facility] [address] [id number] [address] [place] [address], [place] [address] Jan, [facility] [address] [id number] [address] [place] [address], [place] [address] Jan, [facility] [address] [id number] [address] [place] [address], [place] [address] Jan, [facility] [address] [id number] [address] [place] [address], [place] [address] Jan, [facility] [address] [id number] [address] [place] [address], [place] [address] Jan, [facility] [address] [id number] [address] [place] [address], [place] [address] Jan, [facility] [address] [id number] [address] [place] [address], [place] [address] Jan, [facility] [address] [id number] [address] [place] [address], [place] [address] Dec, [facility] [address] [id number] [address] [place] [address], [place] [address] Dec, [facility] [address] [id number] [address] [place] [address], [place] [address] Dec, [facility] [address] [id number] [address] [place] [address], [place] [address] Dec, [facility] [address] [id number] [address] [place] [address], [place] [address] Dec, [facility] [address] [id number] [address] [place] [address] Dec, [facility] [address] [id number] [address] [place] [address], [place] [address] Nov, [facility] [address] [id number] [address] [place] [address], [place] [address] Nov, [facility] [address] [id number] [address] [place] [address], [place] [address] Oct, [facility] [address] [id number] [address] [place] [address], [place] [address] Oct, [facility] [address] [id number] [address] [place] [address], [place] [address] Oct, [facility] [address] [id number] [address] [place] [address], [place] [address] Oct, [facility] [address] [id number] [address] [place] [address], [place] [address] Oct, [facility] [address] [id number] [address] [place] [address], [place] [address] Oct, [facility] [address] [id number] [address] [place] [address], [place] [address] Sep, [facility] [address] [id number] [address] [place] [address], [place] [address] Sep, [facility] [address] [id number] [address] [place] [address], [place] [address] Sep, [facility] [address] [id number] [address] [place] [address], [place] [address] Sep, [facility] [address] [id number] [address] [place] [address], [place] [address] Aug, [facility] [address] [id number] [address] [place] [address], [place] [address] Aug, [facility] [address] [id number] [address] [place] [address] Aug, [facility] [address] [id number] [address] [place] [address], [place] [address] 17 Jul, 2013 [facility] [address] [id number] [address] [place] [address], [place] [address] 14 Jul, 2013 [facility] [address] [id number] [address] [place] [address], [place] [address] 04 Jul, 2013 [facility] [address] [id number] [address] [place] [address], [place] [address] Jun, [facility] [address] [id number] [address] [place] [address], [place] [address] Jun, [facility] [address] [id number] [address] [place] [address], [place] [address] Jun, [facility] [address] [id number] [address] [place] [address], [place] [address] Apr, [facility] [address] [id number] [address] [place] [address], [place] [address] Apr, [facility] [address] [id number] [address] [place] [address], [place] [address] March, [facility] [address] [id number] [address] [place] [address], [place] [address] March, [facility] [address] [id number] [address] [place] [address], [place] [address] March, [facility] [address] [id number] [address] [place] [address], [place] [address] March, [facility] [address] [id number] [address] [place] [address], [place] [address] Feb, [facility] [address] [id number] [address] [place] [address], [place] [address] Jan, [facility] [address] [id number] [address] [place] [address], [place] [address] Dec, [facility] [address] [id number] [address] [place] [address], [place] [address] 08 Dec, 2012 [facility] [address] [id number] [address] [place] [address], [place] [address] Dec, [facility] [address] [id number] [address] [place] [address], [place] [address] Nov, [facility] [address] [id number] [address] [place] [address], [place] [address] Oct, [facility] [address] [id number] [address] [place] [address], [place] [address] Oct, [facility] [address] [id number] [address] [place] [address], [place] [address] Sep, [facility] [address] [id number] [address] [place] [address], [place] [address] Sep, [facility] [address] [id number] [address] [place] [address], [place] [address] Sep, [facility] [address] [id number] [address] [place] [address], [place] [address] Sep, [facility] [address] [id number] [address] [place] [address], [place] [address] Sep, [facility] [address] [id number] [address] [place] [address], [place] [address] Sep, [facility] [address] [id number] [address] [place] [address], [place] [address] Sep, [facility] [address] [id number] [address] [place] [address], [place] [address] Aug, [facility] [address] [id number] [address] [place] [address], [place] [address] Aug, [facility] [address] [id number] [address] [place] [address], [place] [address] Aug, [facility] [address] [id number] [address] [place] [address], [place] [address] Aug, [facility] [address] [id number] [address] [place] [address], [place] [address] 08 Aug, 2012 [facility] [address] [id number] [address] [place] [address], [place] [address] 08 Aug, 2012 [facility] [address] [id number] [address] [place] [address], [place] [address] Aug, [facility] [address] [id number] [address] [place] [address], [place] [address] Aug, [facility] [address] [id number] [address] [place] [address], [place] [address] Jul, [facility] [address] [id number] [address] [place] [address], [place] [address] Jul, [facility] [address] [id number] [address] [place] [address], [place] [address] Jun, [facility] [address] [id number] [address] [place] [address], [place] [address] May, [facility] [address] [id number] [address] [place] [address], [place] [address] Apr, [facility] [address] [id number] [address] [place] [address], [place] [address] Apr, [facility] [address] [id number] [address] [place] [address], [place] [address] Apr, [facility] [address] [id number] [address] [place] [address], [place] [address] March, [facility] [address] [id number] [address] [place] [address], [place] [address] March, [facility] [address] [id number] [address] [place] [address], [place] [address] March, [facility] [address] [id number] [address] [place] [address], [place] [address] March, [facility] [address] [id number] [address] [place] [address], [place] [address] March, [facility] [address] [id number] [address] [place] [address], [place] [address] March, [facility] [address] [id number] [address] [place] [address], [place] [address] March, [facility] [address] [id number] [address] [place] [address], [place] [address] Jan, [facility] [address] [id number] [address] [place] [address], [place] [address] Jan, [facility] [address] [id number] [address] [place] [address], [place] [address] Jan, [facility] [address] [id number] [address] [place] [address], [place] [address] Jan, [facility] [address] [id number] [address] [place] [address], [place] [address] Jan, [facility] [address] [id number] [address] [place] [address], [place] [address] Dec, [facility] [address] [id number] [address] [place] [address], [place] [address] Dec, [facility] [address] [id number] [address] [place] [address], [place] [address] Nov, [facility] [address] [id number] [address] [place] [address], [place] [address] Nov, [facility] [address] [id number] [address] [place] [address], [place] [address] Nov, [facility] [address] [id number] [address] [place] [address], [place] [address] Nov, [facility] [address] [id number] [address] [place] [address], [place] [address] Oct, [facility] [address] [id number] [address] [place] [address], [place] [address] Oct, [facility] [address] [id number] [address] [place] [address], [place] [address] 14 Sep, 2011 [facility] [address] [id number] [address] [place] [address], [place] [address] 10 Sep, 2011 [facility] [address] [id number] [address] [place] [address], [place] [address] 10 Sep, 2011 [facility] [address] [id number] [address] [place] [address], [place] [address] 11 May, 2011 [facility] [address] [id number] [address] [place] [address], [place] [address] 20 Nov, 2010 [facility] [address] [id number] [address] [place] [address], [place] [address] 29 Oct, 2010 [facility] [address] [id number] [address] [place] [address], [place] [address] 14 Oct, 2010 [facility] [address] [id number] [address] [place] [address], [place] [address] 08 Oct, 2010 [facility] [address] [id number] [address] [place] [address], [place] [address] 15 Sep, 2010 [facility] [address] [id number] [address] [place] [address], [place] [address] 02 Sep, 2010 [facility] [address] [id number] [address] [place] [address], [place] [address] Aug, [facility] [address] [id number] [address] [place] [address], [place] [address] March, [facility] [address] [id number] [address] [place] [address], [place] [address] 17 Oct, 2009 [facility] [address] [id number] [address] [place] [address], [place] [address] Oct, [facility] [address] [id number] [address] [place] [address], [place] [address] Oct, [facility] [address] [id number] [address] [place] [address], [place] [phone] Oct, [facility] [address] [id number] [address] [place] [phone] Sep, [facility] [address] [id number] [address] [place] [phone] Sep, [facility] [address] [id number] [address] [place] [phone] Sep, [facility] [address] [facility] [id number] [address] [place] [phone] Aug, [facility] [address] [id number] [address] [place] [phone] Aug, [facility] [address] [facility] [id number] [address] [place] [id number] Aug, [facility] [address] [facility] [id number] [address] [place] [phone] Jan, IMMUNIZATIONS No Known Immunizations SOCIAL HISTORY Never Assessed REASON FOR VISIT med order PLAN OF CARE VITAL SIGNS MEDICATIONS Medication Instructions Dosage Frequency Start Date End Date Duration S tatus Levothyroxine Sodium 150 MCG Orally Once a day on an e mpty stomach with a full glass of water 1 tablet 30 days Active RESULTS No Results PROCEDURES No [...]
--- OUTSIDE RECORDS SUMMARY | 2020-06-13 16:20 | XMS REPORT ---
Author Author Jah PARKER Organization [facility] Address [address] [place] [address] Care Team Providers Care Mail Carrier Technician Name Role Phone PARKERPATRICIA Mckeon Unavailable PROBLEMS Type Condition ICD9-CM Code MYC05-XL Code Onset Dates Condition S tatus SNOMED Code Problem Type 2 diabetes mellitus with hyperglycemia E11.65 Active 56401914 Problem Pulmonary emphysema, unspecified emphysema type J4 3.9 Active 18600322 Problem Essential (primary) hypertension I10 Active 05288123 Problem Hypertriglyceridemia E78.1 Active 586097591 Problem Major depressive disorder, recurrent episode, moderate F33.1 Active 274498500 Problem Recurrent major depressive disorder, in partial remission F33.41 Active 53793531 Problem Current non-adherence to medical treatment Z91.19 Active 9475584 Problem Anxiety disorder, unspecified type F41.9 Active 977442668 Problem Chronic fatigue R53.82 Active 8422 9001 Problem Chronic pain G89.29 Active 9744066 1 Problem Neuropathy G62.9 Active 691131966 Problem Thrombocytosis D47.3 Active 16834 09 Problem Mixed hyperlipidemia E78.2 Active 597805012 Problem Gastroesophageal reflux disease with esophagitis K 21.0 Active 921073541 Problem Hypothyroid E03.9 Active 12518840 Problem Irritable bowel syndrome with diarrhea K58.0 Active 324380724 Problem Overactive bladder N32.81 Active 2 99320062 Problem FPC current use of insulin Z79.4 Active 809564214 ALLERGIES Substance Reaction Event Type Date Status Trilipix nausea Drug Allergy Jun, Active Niacin rash Drug Allergy Jun, Active Metformin HCl diarrhea Drug Allergy Jun, Active Januvia diarrhea Drug Allergy Jun, Active Gemfibrozil diarrhea Drug Allergy Jun, Active Actos diarrhea Drug Allergy Jun, Active ENCOUNTERS Encounter Location Date Diagnosis [facility] [address] [facility] [id number] [address] [address] Jul, Chronic pain G89.29 [facility] [address] [facility] [id number] [address] [place] [address] Jun, Type 2 diabetes mellitus wit h hyperglycemia E11.65 ; Neuropathy G62.9 ; Recurrent major depressive disorder, in partial remission F33.41 ; Chronic pain G89.29 and Hypertriglyceridemia E78.1 [place] [address] [address] [facility] [id number] [address] [place] [address] Jun, Hypothyroid E03.9 [place] [address] [address] [facility] [id number] [address] [place] [address] Jun, Major depressive disorder, r ecurrent episode, moderate F33.1 and Anxiety disorder, unspecified type F41.9 [place] [address] [address] 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 [id number] [address] [place] [address] May, [place] [address] [address] [facility] [id number] [address] [place] [address] May, [place] [address] [address] [facility] [id number] [address] [place] [address] May, [place] [address] [address] [facility] [id number] [address] [place] [address] May, Generalized abdominal pain R 10.84 and Candidal dermatitis B37.2 [place] [address] [address] [facility] [id number] [address] [place] [address] May, [facility] [address] [facility] [id number] [address] [place] [phone] May, [facility] [address] [facility] [id number] [address] [place] [address] May, Nodular radiologic density R 93.8 ; Weight loss, unintentional R63.4 and Pulmonary emphysema, unspecified emphysema type J43.9 [place] [address] [facility] [id number] [address] [place] [phone] May, Chronic pain G89.29 [place] [address] [address] [facility] [id number] [address] [place] [id number] 09 May, 2018 Syncope and collapse R55 ; C hronic fatigue R53.[address] lung screening R91.8 [place] [address] [address] [facility] [id number] [address] [place] [phone] May, [place] [address] [address] [facility] [id number] [address] [place] [phone] Apr, Chronic fatigue R53.82 ; Abn ormal chest CT R93.8 ; Elevated erythrocyte sedimentation rate R70.0 ; Hypothyroid E03.9 and Recurrent major depressive disorder, in partial remission F33.41 [place] [address] [address] [facility] [id number] [address] [place] [address] Apr, Hypothyroid E03.9 [place] [address] [address] [facility] [id number] [address] [place] [address] Apr, Depression F32.9 [place] [address] [address] [facility] [id number] [address] [place] [address] Apr, [place] [address] [address] [facility] [id number] [address] [place] [phone] March, [place] [address] [address] [facility] [id number] [address] [place] [address] March, Hypothyroid E03.9 [place] [address] [address] [facility] [id number] [address] [place] [address] March, Diabetes mellitus E11.9 and Hypothyroid E03.9 [place] [address] [address] [facility] [id number] [address] [place] [address] March, Diabetes mellitus E11.9 [place] [address] [address] [facility] [id number] [address] [place] [address] March, Hypothyroid E03.9 and Elevat ed liver enzymes R74.8 [place] [address] [address] 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 ; Pulmonary emphysema, unspecified emphysema type J43.9 ; Hypothyroid E03.9 ; Neuropathy G62.9 ; Mixed hyperlipidemia E78.2 ; Chronic pain G89.29 ; Gastroesophageal reflux disease with esophagitis K21.0 ; Irritable bowel syndrome with diarrhea K58.0 ; Overactive bladder N32.81 and Recurrent major depressive disorder, in partial remission F33.41 [place] [address] [address] [place] [id number] [place] [address] Feb, Chronic pain G89.29 [place] [address] [address] [place] [id number] [address] [place] [address] Feb, Type 2 diabetes mellitus wit h hyperglycemia E11.65 and Skin lesion of scalp L98.9 [place] [address] [address] [place] [id number] [address] [place] [address] Feb, [place] [address] [address] [place] [id number] [address] [place] [address] Jan, Type 2 diabetes mellitus wit h [...] and Irritable bowel syndrome with diarrhea K58.0 [place] [address] [address] [place] [id number] [address] [place] [id number] Jan, [facility] [address] [id number] [address] [place] [address] Jan, Controlled substance agreeme nt signed Z79.899 [facility] [address] 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 [id number] [address] [place] [address] 02 Dec, 2017 Controlled substance agreeme nt signed Z79.899 [place] [address] [id number] [address] [place] [address] Nov, Type 2 diabetes mellitus wit h hyperglycemia E11.65 and Current non- adherence to medical treatment Z91.19 [place] [address] [id number] [address] [place] [address] Nov, [place] [address] [id number] [address] [place] [address] Nov, Chronic pain G89.29 [place] [address] [id number] [address] [place] [phone] Nov, [place] [address] [address] [facility] [id number] [address] [place] [address] Nov, Hypothyroid E03.9 [place] [address] [facility] [id number] [address] [place] [address] Nov, Hypothyroid E03.9 [place] [address] [address] [facility] [id number] [address] [place] [phone] Nov, Pulmonary emphysema, unspeci fied emphysema type J43.9 and Irritable bowel syndrome with diarrhea K58.0 [place] [address] [address] [place] [address] Oct, [place] [address] [address] [place] [id number] [address] [place] [address] Oct, [place] [address] [address] Oct, [place] [address] [address] [facility] [id number] [address] [place] [phone] Oct, [place] [address] [address] Oct, Chronic pain G89.29 [place] [address] [address] Oct, Diabetes mellitus E11.9 ; De pression F32.9 ; Mixed hyperlipidemia E78.2 ; Hypotension, unspecified hypotension type I95.9 ; Pulmonary emphysema, unspecified emphysema type J43.9 and Weight loss, unintentional R63.4 [place] [address] [address] Oct, Chronic pain G89.29 [place] [address] [address] Sep, Chronic pain G89.29 [place] [address] [address] Sep, Hypothyroid E03.9 and Diabet es mellitus E11.9 [place] [address] [address] Aug, Type 2 diabetes mellitus wit h hyperglycemia E11.65 ; FPC current use of insulin Z79.4 ; Essential (primary) hypertension I10 ; Hypothyroid E03.9 ; Neuropathy G62.9 ; Chronic pain G89.29 ; Mixed hy perlipidemia E78.2 and Encounter for immunization Z23 [facility] [address] [place] [id number] [address] [place] [address] Aug, Chronic pain G89.29 [facility] [address] [address] Aug, Overactive bladder N32.81 ; Diabetes mellitus E11.9 and Chronic pain G89.29 [facility] [address] [address] Jul, [facility] [address] [place] [id number] [place] [phone] Jun, [facility] [address] [address] Jun, [facility] [address] [address] Jun, Hypothyroid E03.9 [facility] [address] [address] Jun, Diabetes mellitus E11.9 ; Hy pothyroid E03.9 ; Neuropathy G62.9 ; Chronic pain G89.29 and Neck mass R22.1 [facility] [address] [address] Apr, [facility] [address] [address] Apr, Acute cystitis without hemat uria N30.00 [facility] [address] [place] [id number] [address] [place] [address] March, [facility] [address] [address] March, [facility] [address] [address] March, Near syncope R55 [facility] [address] [address] Feb, [facility] [address] [facility] [id number] [address] [place] [address] Feb, Chronic pain G89.29 [facility] [address] [place] [id number] [address] [place] [address] Feb, [facility] [address] [place] [id number] [address] [place] [address] Feb, [facility] [address] [address] Jan, Chronic pain G89.29 [facility] [address] [address] Jan, [facility] [address] [address] Jan, [facility] [address] [address] Jan, Diabetes mellitus E11.9 ; Hy pothyroid E03.9 ; GERD (gastroesophageal reflux disease) K21.9 ; Insomnia G47.00 ; Functional diarrhea K59.1 ; Neuropathy G62.9 ; Depression F32.9 ; Chronic pain G89.29 ; Irritable bowel syndrome with diarrhea K58.0 ; Overactive bladder N32.81 ; Mixed hyperlipidemia E78.2 and Bronchitis J40 [facility] [address] [place] [address] Dec, [facility] [address] [place] [address] Dec, [facility] [address] [place] [id number] [address] [place] [address] Dec, [facility] [address] [place] [id number] [address] [place] [address] Dec, [facility] [address] [place] [address] Dec, Chronic pain G89.29 [facility] [address] [facility] [id number] [address] [place] [address] Dec, [facility] [address] [place] [id number] [place] [address] Dec, [facility] [address] [place] [id number] [address] [place] [address] Dec, Type 2 diabetes mellitus wit h foot ulcer E11.621 [facility] [address] [place] [id number] [address] [place] [id number] 17 Dec, 2016 Type 2 diabetes mellitus wit h foot ulcer E11.621 [place] [address] [place] [id number] [place] [address] 14 Dec, 2016 HTN (hypertension) I10 ; Dep ression F32.9 ; Type 2 diabetes mellitus with foot ulcer E11.621 ; Functional diarrhea K59.1 ; Irritable bowel syndrome with diarrhea K58.0 ; Chronic pain G89.29 ; Insomnia G47.00 ; Overactive bladder N32.81 ; Mixed hyperlipidemia E78.2 ; Gastroesophageal reflux disease with esophagitis K21.0 and Acquired hypothyroidism E03.9 [place] [address] [place] [id number] [place] [address] Nov, [place] [address] [place] [address] Oct, [place] [address] [place] [id number] [place] [address] Oct, [place] [address] [place] [id number] [place] [address] Oct, [place] [address] [place] [id number] [place] [address] Sep, Functional diarrhea K59.1 ; HTN (hypertension) I10 ; Diabetes mellitus E11.9 ; Depression F32.9 ; Overactive bladder N32.81 ; Mixed hyperlipidemia E78.2 ; Gastroesophageal reflux disease without esophagitis K21.9 ; Chronic pain G89.29 ; Insomnia G47.00 and Acquired hypothyroidism E03.9 [facility] [address] [place] [id number] [address] [place] [address] Sep, [place] [address] [address] 11 Aug, 2016 Encounter for immunization Z 23 [facility] [address] [place] [id number] [address] [place] [id number] 06 Aug, 2016 [place] [address] [place] [id number] [place] [address] Jul, [place] [address] [place] [id number] [place] [address] Jun, Type 2 diabetes mellitus wit hout complications E11.9 ; HTN (hypertension) I10 ; Hypothyroid E03.9 ; Neuropathy G62.9 ; Depression F32.9 ; Chronic pain G89.29 ; GERD (gastroesophageal reflux disease) K21.9 ; Insomnia G47.00 ; Overactive bladder N32.81 ; Mixed hyperlipidemia E78.2 ; Diarrhea of infectious origin A09 and Environmental allergies Z91.09 [place] [address] [address] Apr, [place] [address] [address] March, Hypothyroidism, unspecified E03.9 and Mixed hyperlipidemia E78.2 [place] [address] [place] [id number] [place] [address] March, Diabetes mellitus E11.9 ; HT N (hypertension) I10 ; Hypothyroid E03.9 ; Depression F32.9 ; Overactive bladder N32.81 ; Other chronic pain G89.29 ; Lumbago with sciatica, unspecified side M54.40 ; Environmental allergies Z91.09 and Gastroesophageal reflux disease, esophagitis presence not specified K21.9 [place] [address] [place] [id number] [place] [address] March, [place] [address] [place] [id number] [place] [address] Jan, HTN (hypertension) I10 ; Hyp othyroid E03.9 ; Neuropathy G62.9 ; Diabetes mellitus E11.9 ; Chronic pain G89.29 ; GERD (gastroesophageal reflux disease) K21.9 ; Overactive bladder N32.81 and Depression F32.9 [place] [address] [address] 12 Dec, 2015 Ear pain, left H92.02 ; HTN (hypertension) I10 ; Hypothyroid E03.9 ; Neuropathy G62.9 ; Diabetes mellitus E11.9 ; Depression F32.9 ; GERD (gastroesophageal reflux disease) K21.9 ; Insomnia G47.00 and Overactive bladder N32.81 [place] [address] [address] Nov, Overactive bladder N32.81 an d Chronic pain G89.29 [place] [address] [address] Nov, Kidney failure N19 [place] [address] [address] Nov, [place] [address] [address] Nov, [place] [address] [address] Nov, Diabetes mellitus E11.9 ; De pression F32.9 ; Chronic pain G89.29 ; GERD (gastroesophageal reflux disease) K21.9 ; Insomnia G47.00 ; HTN (hypertension) I10 ; Hypothyroid E03.9 ; COPD (chronic obstructive pulmonary disease) J44.9 ; Bladder incontinence R32 and Incontinence R32 [place] [address] [address] Sep, Type 2 diabetes mellitus wit h foot ulcer E11.621 and Chromosomal abnormality, 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 [place] [address] [place] [id number] [place] [address] Sep, [place] [address] [address] Aug, [place] [address] [address] Aug, [place] [address] [address] Aug, HTN (hypertension) I10 ; Enc ounter for immunization Z23 ; Hypothyroid E03.9 ; Neuropathy G62.9 ; Diabetes mellitus E11.9 ; Depression F32.9 ; Chronic pain G89.29 ; GERD (gastroesophageal reflux disease) K21.9 ; Insomnia G47.00 and COPD (chronic obstructive pulmonary disease) J44.[address] [address] Jun, [address] [address] Jun, [place] [address] [address] May, Essential hypertension, ivis gn 401.1 ; Unspecified hypothyroidism 244.9 ; Insomnia, unspecified 780.52 ; Shortness of breath 786.05 ; Depression 311 ; COPD (chronic obstructive pulmonary disease) 496 ; GERD (gastroesophageal reflux disease) 530.81 and Diabetes 1.5, 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 [address] May, [place] [address] [address] May, [address] [address] May, Shortness of breath 786.05 ; Essential hypertension, benign 401.1 ; Diabetes mellitus 250.00 ; Hyperlipidemia 272.4 ; Hypothyroid 244.9 ; Insomnia 780.52 and Cough 786.[address] [address] Apr, [facility] [address] [id number] [address] [place] [address] March, Shortness of breath 786.05 ; Nausea with vomiting 787.01 ; Essential hypertension, benign 401.1 ; Diabetes mellitus 250.00 ; Hyperlipidemia 272.4 and Hypothyroid 244.9 [facility] [address] [id number] [address] [place] [address] Feb, [facility] [address] [id number] [address] [place] [id number] Feb, [facility] [address] [id number] [address] [place] [address] Jan, [facility] [address] [id number] [address] [place] [address] Jan, [facility] [address] [facility] [id number] [address] [place] [address] Jan, [facility] [address] [id number] [address] [place] [address] Jan, [facility] [address] [id number] [address] [place] [phone] Jan, [facility] [address] [facility] [id number] [address] [place] [id number] Jan, [facility] [address] [id number] [address] [place] [address] Jan, [facility] [address] [id number] [address] [place] [phone] Jan, [facility] [address] [facility] [id number] [address] [place] [address] Jan, [facility] [address] [facility] [id number] [address] [place] [address] Jan, [facility] [address] [facility] [id number] [address] [place] [phone] Dec, [facility] [address] [id number] [address] [place] [address], [place] [address] Dec, 2014 [facility] [address] [id number] [address] [place] [address], [place] [address] Dec, 2014 [facility] [address] [id number] [address] [place] [address], [place] [address] Dec, 2014 [facility] [address] [id number] [address] [place] [address], [place] [id number] Dec, 2014 [facility] [address] [id number] [address] [place] [address], [place] [address] Dec, 2014 [facility] [address] [id number] [address] [place] [address], [place] [address] Dec, 2014 [facility] [address] [id number] [address] [place] [address], [place] [id number] Dec, 2014 [facility] [address] [id number] [address] [place] [address], [place] [id number] Dec, 2014 [facility] [address] [id number] [address] [place] [address], [place] [address] Dec, 2014 [facility] [address] [id number] [address] [place] [address], [place] [address] Oct, [facility] [address] [id number] [address] [place] [address], [place] [id number] Oct, [facility] [address] [id number] [address] [place] [address], [place] [address] Oct, [facility] [address] [id number] [address] [place] [address], [place] [address] Oct, [facility] [address] [id number] [address] [place] [address], [place] [address] Oct, [facility] [address] [id number] [address] [place] [address], [place] [address] Oct, [facility] [address] [id number] [address] [place] [address], [place] [id number] 05 Oct, 2014 [facility] [address] [id number] [address] [place] [address], [place] [id number] 05 Oct, 2014 [facility] [address] [id number] [address] [place] [address], [place] [address] Oct, [facility] [address] [id number] [address] [place] [address], [place] [address] Oct, [facility] [address] [id number] [address] [place] [address], [place] [address] Oct, [facility] [address] [id number] [address] [place] [address], [place] [address] Oct, [facility] [address] [id number] [address] [place] [address], [place] [address] Oct, [facility] [address] [id number] [address] [place] [address], [place] [address] Oct, [facility] [address] [id number] [address] [place] [address], [place] [address] Sep, [facility] [address] [id number] [address] [place] [address], [place] [address] Sep, [facility] [address] [id number] [address] [place] [address], [place] [address] Sep, [facility] [address] [id number] [address] [place] [address], [place] [address] Sep, [facility] [address] [id number] [address] [place] [address], [place] [address] Sep, [facility] [address] [id number] [address] [place] [address], [place] [address] Sep, [facility] [address] [id number] [address] [place] [address], [place] [address] Sep, [facility] [address] [id number] [address] [place] [address], [place] [address] Sep, [facility] [address] [id number] [address] [place] [address], [place] [address] Sep, [facility] [address] [id number] [address] [place] [address], [place] [address] Aug, [facility] [address] [id number] [address] [place] [address], [place] [address] Aug, [facility] [address] [id number] [address] [place] [address], [place] [address] Aug, [facility] [address] [id number] [address] [place] [address], [place] [address] 17 Aug, 2014 [facility] [address] [id number] [address] [place] [address], [place] [address] 16 Aug, 2014 [facility] [address] [id number] [address] [place] [address], [place] [address] Aug, [facility] [address] [id number] [address] [place] [address], [place] [address] Aug, [facility] [address] [id number] [address] [place] [address], [place] [address] Aug, [facility] [address] [id number] [address] [place] [address], [place] [address] Aug, [facility] [address] [id number] [address] [place] [address], [place] [address] 29 Jul, 2014 [facility] [address] [id number] [address] [place] [address] 29 Jul, 2014 [facility] [address] [id number] [address] [place] [address], [place] [address] 25 Jul, 2014 [facility] [address] [id number] [address] [place] [address], [place] [address] Jul, [facility] [address] [id number] [address] [place] [address], [place] [address] Jul, [facility] [address] [id number] [address] [place] [address], [place] [address] Jul, [facility] [address] [id number] [facility] [address] Jul, [facility] [address] [id number] [facility] [place] [address] Jul, [facility] [address] [id number] [address] [place] [address], [place] [address] Jul, [facility] [address] [id number] [address] [place] [address], [place] [address] Jul, [facility] [address] [id number] [address] [place] [address], [place] [address] Jun, [facility] [address] [id number] [address] [place] [address], [place] [address] Jun, [facility] [address] [id number] [address] [place] [address], [place] [address] Jun, [facility] [address] [id number] [address] [place] [address], [place] [address] Jun, [facility] [address] [id number] [address] [place] [address], [place] [address] Jun, [facility] [address] [id number] [address] [place] [address], [place] [address] Jun, [facility] [address] [id number] [address] [place] [address], [place] [address] Jun, [facility] [address] [id number] [address] [place] [address], [place] [address] Jun, [facility] [address] [id number] [address] [place] [address], [place] [address] Jun, [facility] [address] [id number] [address] [place] [address], [place] [address] Jun, [facility] [address] [id number] [address] [place] [address], [place] [address] Jun, [facility] [address] [id number] [address] [place] [address], [place] [address] Jun, [facility] [address] [id number] [facility] [address] May, [facility] [address] [id number] [address] [place] [address], [place] [address] May, [facility] [address] [id number] [address] [place] [address], [place] [address] May, [facility] [address] [id number] [address] [place] [address], [place] [address] May, [facility] [address] [id number] [address] [place] [address], [place] [address] May, [facility] [address] [id number] [address] [place] [address], [place] [address] May, [facility] [address] [id number] [address] [place] [address], [place] [address] March, [facility] [address] [id number] [address] [place] [address], [place] [address] March, [facility] [address] [id number] [address] [place] [address], [place] [address] March, [facility] [address] [id number] [address] [place] [address], [place] [address] March, [facility] [address] [id number] [address] [place] [address], [place] [address] March, [facility] [address] [id number] [address] [place] [address], [place] [address] March, [facility] [address] [id number] [address] [place] [address], [place] [address] Feb, [facility] [address] [id number] [address] [place] [address], [place] [address] Feb, [facility] [address] [id number] [address] [place] [address], [place] [address] Feb, [facility] [address] [id number] [facility] [address] Feb, [facility] [address] [id number] [address] [place] [address], [place] [address] Jan, [facility] [address] [id number] [facility] [address] Jan, [facility] [address] [id number] [address] [place] [address], [place] [address] Jan, [facility] [address] [id number] [address] [place] [address], [place] [address] Jan, [facility] [address] [id number] [address] [place] [address], [place] [address] Jan, [facility] [address] [id number] [address] [place] [address], [place] [address] Jan, [facility] [address] [id number] [address] [place] [address], [place] [address] Jan, [facility] [address] [id number] [address] [place] [address], [place] [address] Jan, [facility] [address] [id number] [address] [place] [address], [place] [address] Jan, [facility] [address] [id number] [address] [place] [address], [place] [address] Jan, [facility] [address] [id number] [address] [place] [address], [place] [address] Jan, [facility] [address] [id number] [address] [place] [address], [place] [address] Jan, [facility] [address] [id number] [address] [place] [address], [place] [address] Dec, [facility] [address] [id number] [address] [place] [address], [place] [address] Dec, [facility] [address] [id number] [address] [place] [address], [place] [address] Dec, [facility] [address] [id number] [address] [place] [address], [place] [address] Dec, [facility] [address] [id number] [address] [place] [address], [place] [address] Dec, [facility] [address] [id number] [address] [place] [address], [place] [address] Dec, [facility] [address] [id number] [address] [place] [address], [place] [address] Nov, [facility] [address] [id number] [address] [place] [address], [place] [address] Nov, [facility] [address] [id number] [address] [place] [address], [place] [address] Oct, [facility] [address] [id number] [address] [place] [address], [place] [address] Oct, [facility] [address] [id number] [address] [place] [address], [place] [address] Oct, [facility] [address] [id number] [address] [place] [address], [place] [address] Oct, [facility] [address] [id number] [address] [place] [address], [place] [address] Oct, [facility] [address] [id number] [address] [place] [address], [place] [address] Oct, [facility] [address] [id number] [address] [place] [address], [place] [address] Sep, [facility] [address] [id number] [address] [place] [address], [place] [address] Sep, [facility] [address] [id number] [address] [place] [address], [place] [address] Sep, [facility] [address] [id number] [address] [place] [address] [address] Sep, [facility] [address] [id number] [address] [place] [address], [place] [address] Aug, [facility] [address] [id number] [address] [place] [address], [place] [address] Aug, [facility] [address] [id number] [address] [place] [address], [place] [address] Aug, [facility] [address] [id number] [address] [place] [address], [place] [address] Jul, [facility] [address] [id number] [address] [place] [address], [place] [address] Jul, [facility] [address] [id number] [address] [place] [address], [place] [address] Jul, [facility] [address] [id number] [address] [place] [address], [place] [address] Jun, [facility] [address] [id number] [address] [place] [address], [place] [address] Jun, [facility] [address] [id number] [address] [place] [address], [place] [address] Jun, [facility] [address] [id number] [address] [place] [address], [place] [address] Apr, [facility] [address] [id number] [address] [place] [address], [place] [address] Apr, [facility] [address] [id number] [address] [place] [address] March, [facility] [address] [id number] [address] [place] [address], [place] [address] March, [facility] [address] [id number] [address] [place] [address], [place] [address] March, [facility] [address] [id number] [address] [place] [address], [place] [address] March, [facility] [address] [id number] [address] [place] [address], [place] [address] 24 Feb, 2013 [facility] [address] [id number] [address] [place] [address], [place] [address] Jan, [facility] [address] [id number] [address] [place] [address], [place] [address] 13 Dec, 2012 [facility] [address] [id number] [address] [place] [address], [place] [address] 08 Dec, 2012 [facility] [address] [id number] [address] [place] [address], [place] [address] 07 Dec, 2012 [facility] [address] [id number] [address] [place] [address], [place] [address] 03 Nov, 2012 [facility] [address] [id number] [address] [place] [address], [place] [address] 13 Oct, 2012 [facility] [address] [id number] [address] [place] [address], [place] [address] Oct, [facility] [address] [id number] [address] [place] [address], [place] [address] Sep, [facility] [address] [id number] [address] [place] [address], [place] [address] Sep, [facility] [address] [id number] [address] [place] [address], [place] [address] Sep, [facility] [address] [id number] [address] [place] [address], [place] [address] Sep, [facility] [address] [id number] [address] [place] [address], [place] [address] Sep, [facility] [address] [id number] [address] [place] [address], [place] [address] Sep, [facility] [address] [id number] [address] [place] [address], [place] [address] Sep, [facility] [address] [id number] [address] [place] [address], [place] [address] 16 Aug, 2012 [facility] [address] [id number] [address] [place] [address], [place] [address] 16 Aug, 2012 [facility] [address] [id number] [address] [place] [address], [place] [address] Aug, [facility] [address] [id number] [address] [place] [address], [place] [address] 10 Aug, 2012 [facility] [address] [id number] [address] [place] [address], [place] [address] Aug, [facility] [address] [id number] [address] [place] [address], [place] [address] 08 Aug, 2012 [facility] [address] [id number] [address] [place] [address], [place] [address] Aug, [facility] [address] [id number] [address] [place] [address], [place] [address] Aug, [facility] [address] [id number] [address] [place] [address], [place] [address] Jul, [facility] [address] [id number] [address] [place] [address], [place] [address] Jul, [facility] [address] [id number] [address] [place] [address], [place] [address] Jun, [facility] [address] [id number] [address] [place] [address], [place] [address] May, [facility] [address] [id number] [address] [place] [address] Apr, [facility] [address] [id number] [address] [place] [address], [place] [address] Apr, [facility] [address] [id number] [address] [place] [address], [place] [address] Apr, [facility] [address] [id number] [address] [place] [address], [place] [address] March, [facility] [address] [id number] [address] [place] [address], [place] [address] March, [facility] [address] [id number] [address] [place] [address], [place] [address] March, [facility] [address] [id number] [address] [place] [address], [place] [address] March, [facility] [address] [id number] [address] [place] [address], [place] [address] March, [facility] [address] [id number] [address] [place] [address], [place] [address] March, [facility] [address] [id number] [address] [place] [address], [place] [address] March, [facility] [address] [id number] [address] [place] [address], [place] [address] Jan, [facility] [address] [id number] [address] [place] [address], [place] [address] Jan, [facility] [address] [id number] [address] [place] [address], [place] [address] Jan, [facility] [address] [id number] [address] [place] [address], [place] [address] Jan, [facility] [address] [id number] [address] [place] [address], [place] [address] Jan, [facility] [address] [id number] [address] [place] [address], [place] [address] Dec, [facility] [address] [id number] [address] [place] [address], [place] [address] Dec, [facility] [address] [id number] [address] [place] [address], [place] [address] Nov, [facility] [address] [id number] [address] [place] [address], [place] [address] Nov, [facility] [address] [id number] [address] [place] [address], [place] [address] Nov, [facility] [address] [id number] [address] [place] [address], [place] [address] 05 Nov, 2011 [facility] [address] [id number] [address] [place] [address], [place] [address] Oct, [facility] [address] [id number] [address] [place] [address], [place] [address] 06 Oct, 2011 [facility] [address] [id number] [address] [place] [address], [place] [address] 14 Sep, 2011 [facility] [address] [id number] [address] [place] [address], [place] [phone] Sep, [facility] [address] [id number] [address] [place] [address], [place] [phone] 10 Sep, 2011 [facility] [address] [id number] [address] [place] [address], [place] [address] May, [facility] [address] [id number] [address] [place] [address], [place] [address] Nov, [facility] [address] [id number] [address] [place] [address], [place] [phone] 29 Oct, 2010 [facility] [address] [id number] [address] [place] [address], [place] [address] 14 Oct, 2010 [facility] [address] [id number] [address] [place] [address], [place] [address] Oct, [facility] [address] [id number] [address] [place] [address], [place] [phone] 15 Sep, 2010 [facility] [address] [id number] [address] [place] [address], [place] [address] Sep, [facility] [address] [id number] [address] [place] [address], [place] [address] Aug, [facility] [address] [id number] [address] [place] [address], [place] [address] March, [facility] [address] [id number] [address] [place] [address], [place] [address] Oct, [facility] [address] [id number] [address] [place] [phone] Oct, [facility] [address] [id number] [address] [place] [id number] Oct, [facility] [address] [id number] [address] [place] [phone] Oct, [facility] [address] [id number] [address] [place] [phone] Sep, [facility] [address] [id number] [address] [place] [phone] Sep, [facility] [address] [id number] [address] [place] [phone] Sep, [facility] [address] [id number] [address] [place] [phone] Aug, [facility] [address] [id number] [address] [place] [phone] Aug, [facility] [address] [id number] [address] [place] [phone] Aug, [facility] [address] [id number] [address] [place] [phone] Jan, IMMUNIZATIONS No Known Immunizations SOCIAL HISTORY Never Assessed REASON FOR VISIT Diabetes-Carina Hooks PLAN OF CARE Activity Details Follow Up 3 Months, prn Reason:CHM/DM VITAL SIGNS Height 69 in 2018-07-09 Weight 180.7 lbs 2018-07-09 Temperature 97.0 degrees Fahrenheit 2018-07-09 Heart Rate 95 bpm 2018-07-09 Respiratory Rate 20 2018-07-09 BMI 26.68 kg/m2 2018-07-09 Blood pressure systolic 126 mmHg 2018-07-09 Blood pressure diastolic 82 mmHg 2018-07-09 MEDICATIONS Medication Instructions Dosage Frequency Start Date End Date Duration S tatus Welchol 625 MG Orally Once a day 1 capsule 24h 21 Apr, 2017 90 days Active MetFORMIN HCl ER 500 mg Orally twice a day 2 tablets 12h 90 days Active Gabapentin 300 MG Orally Once a day 1 capsule before bedtime 24h Jan, 90 days Active Pravastatin Sodium 20 mg Orally Once a day 1 tablet 24h March, 90 days Active Oxybutynin Chloride 5 mg Orally Twice a day 1 tablet 12h 90 days Active Victoza 18 MG/3ML Subcutaneous Once a day 1.8 mg 24h 12 months Active BD Ultra-Fine Micro Pen Needle 32G X 6 MM subcutaneously 3 t imes a day use to inject insulin 8h May, Active Omeprazole 20 mg Orally 2 times a day TAKE ONE CAPSULE BY MOUTH TWI CE DAILY 12h 90 days Active Levemir FlexTouch 100 UNIT/ML Subcutaneous 2 times a day INJ ECT 50 UNITS SUBCUTANEOUSLY TWICE DAILY (MUST KEEP APPOINTMENT ON 11/08 FOR REFILLS) 12h Active Lisinopril 10 mg Orally Once a day 1 tablet 24h Jan, 90 days Active Hydrocodone-Acetaminophen 5-325 MG Orally 3 times a day 1 tablet as needed 8h Jun, Jul, 28 days Active Dicyclomine HCl 20 mg Orally 4 times a day TAKE ONE TABLET B Y MOUTH FOUR TIMES DAILY 6h 90 days Active Proventil HFA 108 (90 Base) MCG/ACT Inhalation every 4 hrs 2 puffs as needed 4h May, 12 months Active Trazodone HCl 50 mg Orally Once a day 1 tablet at bedtime as needed 24h Apr, 30 day(s) Active Levothyroxine Sodium 150 MCG Orally Once a day on an e mpty stomach with a full glass of water 1 tablet 30 days Active RESULTS No Results PROCEDURES Procedure Date Ordered Result Body Site MICROALBUMIN, SEMIQUANT Jul 09, 2018 ASSAY OF URINE CREATININE Jul 09, 2018 MICROALBUMIN, QUANTITATIVE Jul 09, 2018 INSTRUCTIONS MEDICATIONS ADMINISTERED No Known Medications [...]
--- OUTSIDE RECORDS SUMMARY | 2020-06-13 16:21 | XMS REPORT ---
Author Author Jah PARKER Organization [facility] Address [address] [place] [address] Care Team Providers Care Area Relief Pilot Name Role Phone PARKERPATRICIA Mckeon Unavailable PROBLEMS Type Condition ICD9-CM Code VJM01-JV Code Onset Dates Condition S tatus SNOMED Code Problem Type 2 diabetes mellitus with hyperglycemia E11.65 Active 73686475 Problem Pulmonary emphysema, unspecified emphysema type J4 3.9 Active 48835387 Problem Essential (primary) hypertension I10 Active 31238640 Problem Hypertriglyceridemia E78.1 Active 206344424 Problem Major depressive disorder, recurrent episode, moderate F33.1 Active 641618647 Problem Recurrent major depressive disorder, in partial remission F33.41 Active 47676375 Problem Current non-adherence to medical treatment Z91.19 Active 6598313 Problem Anxiety disorder, unspecified type F41.9 Active 500073909 Problem Chronic fatigue R53.82 Active 8422 9001 Problem Chronic pain G89.29 Active 3994055 1 Problem Neuropathy G62.9 Active 560064102 Problem Thrombocytosis D47.3 Active 26375 09 Problem Mixed hyperlipidemia E78.2 Active 160635151 Problem Gastroesophageal reflux disease with esophagitis K 21.0 Active 280376761 Problem Hypothyroid E03.9 Active 38045701 Problem Irritable bowel syndrome with diarrhea K58.0 Active 567906578 Problem Overactive bladder N32.81 Active 2 06261434 Problem half-way current use of insulin Z79.4 Active 229221425 ALLERGIES Substance Reaction Event Type Date Status Trilipix nausea Drug Allergy Jun, Active Niacin rash Drug Allergy Jun, Active Metformin HCl diarrhea Drug Allergy Jun, Active Januvia diarrhea Drug Allergy Jun, Active Gemfibrozil diarrhea Drug Allergy Jun, Active Actos diarrhea Drug Allergy Jun, Active ENCOUNTERS Encounter Location Date Diagnosis [facility] [address] [facility] [id number] [address] [address] Jun, Type 2 diabetes mellitus wit h hyperglycemia E11.65 ; Neuropathy G62.9 ; Recurrent major depressive disorder, in partial remission F33.41 ; Chronic pain G89.29 and Hypertriglyceridemia E78.1 [facility] [address] [facility] [id number] [address] [place] [address] Jun, Hypothyroid E03.9 [facility] [address] [facility] [id number] [address] [place] [address] Jun, Major depressive disorder, r ecurrent episode, moderate F33.1 and Anxiety disorder, unspecified type F41.9 [facility] [address] [facility] [id number] [address] [place] [address] Jun, [facility] [address] [facility] [id number] [address] [place] [address] Jun, Type 2 diabetes mellitus wit h hyperglycemia E11.65 ; half-way current use of insulin Z79.4 ; Recurrent major depressive disorder, in partial remission F33.41 ; Hypothyroid E03.9 ; Candidal dermatitis B37.2 and Weakness generalized R53.1 [facility] [address] [facility] [id number] [address] [place] [address] May, [facility] [address] [facility] [id number] [address] [place] [address] May, [facility] [address] [facility] [id number] [address] [place] [address] May, [facility] [address] [facility] [id number] [address] [place] [address] May, Generalized abdominal pain R 10.84 and Candidal dermatitis B37.2 [facility] [address] [facility] [id number] [address] [place] [address] May, [facility] [address] [facility] [id number] [address] [place] [address] May, [facility] [address] [facility] [id number] [address] [place] [address] May, Nodular radiologic density R 93.8 ; Weight loss, unintentional R63.4 and Pulmonary emphysema, unspecified emphysema type J43.9 [facility] [address] [id number] [address] [place] [address] 10 May, 2018 Chronic pain G89.29 [facility] [address] [id number] [address] [place] [address] 09 May, 2018 Syncope and collapse R55 ; C hronic fatigue R53.[address] lung screening R91.8 [facility] [address] [id number] [address] [place] [address] May, [facility] [address] [facility] [id number] [address] [place] [address] Apr, Chronic fatigue R53.82 ; Abn ormal chest CT R93.8 ; Elevated erythrocyte sedimentation rate R70.0 ; Hypothyroid E03.9 and Recurrent major depressive disorder, in partial remission F33.41 [place] [id number] [id number] [address] [place] [address] Apr, Hypothyroid E03.9 [facility] [address] [id number] [address] [place] [address] Apr, Depression F32.9 [facility] [address] [id number] [address] [place] [address] Apr, [facility] [address] [id number] [address] [place] [address] March, [facility] [address] [id number] [address] [place] [address] March, Hypothyroid E03.9 [facility] [address] [id number] [address] [place] [address] March, Diabetes mellitus E11.9 and Hypothyroid E03.9 [facility] [address] [facility] [id number] [address] [place] [address] March, Diabetes mellitus E11.9 [facility] [address] [place] [id number] [address] [place] [address] March, Hypothyroid E03.9 and Elevat ed liver enzymes R74.8 [place] [id number] [address] [place] [address] March, Type 2 diabetes mellitus wit h hyperglycemia E11.65 ; half-way current use of insulin Z79.4 ; Pulmonary emphysema, unspecified emphysema type J43.9 ; Hypothyroid E03.9 ; Neuropathy G62.9 ; Mixed hyperlipidemia E78.2 ; Chronic pain G89.29 ; Gastroesophageal reflux disease with esophagitis K21.0 ; Irritable bowel syndrome with diarrhea K58.0 ; Overactive bladder N32.81 and Recurrent major depressive disorder, in partial remission F33.41 [place] [id number] [address] [place] [address] Feb, Chronic pain G89.[address] [address] Feb, Type 2 diabetes mellitus wit h hyperglycemia E11.65 and Skin lesion of scalp L98.9 [place] [id number] [address] [place] [address] Feb, [place] [id number] [address] [place] [address] Jan, Type 2 diabetes mellitus wit h [...] and Irritable bowel syndrome with diarrhea K58.0 [place] [address] [place] [id number] [address] [place] [address] Jan, [place] [id number] [address] [place] [address] Jan, Controlled substance agreeme nt signed Z79.899 [facility] [address] [id number] [address] [place] [address] 08 Dec, 2017 Type 2 diabetes mellitus [...] treatment Z91.19 and Overweight (BMI 25.0-29.9) E66.3 [place] [address] [facility] [id number] [address] [place] [address] 02 Dec, 2017 Controlled substance agreeme nt signed Z79.899 [place] [address] [facility] [id number] [address] [place] [address] Nov, Type 2 diabetes mellitus wit h hyperglycemia E11.65 and Current non- adherence to medical treatment Z91.19 [place] [id number] [id number] [address] [place] [address] Nov, [place] [address] [facility] [id number] [address] [place] [address] Nov, Chronic pain G89.29 [place] [address] [facility] [id number] [address] [place] [address] Nov, [place] [address] [facility] [id number] [address] [place] [address] Nov, Hypothyroid E03.9 [place] [address] [facility] [id number] [address] [place] [address] Nov, Hypothyroid E03.9 [place] [address] [facility] [id number] [address] [place] [address] Nov, Pulmonary emphysema, unspeci fied emphysema type J43.9 and Irritable bowel syndrome with diarrhea K58.0 [place] [address] [facility] [id number] [address] [place] [address] Oct, [place] [address] [facility] [id number] [address] [place] [address] Oct, [place] [address] [facility] [id number] [address] [place] [address] Oct, [place] [address] [facility] [id number] [address] [place] [address] Oct, [place] [address] [facility] [id number] [address] [place] [address] Oct, Chronic pain G89.29 [place] [address] [place] [id number] [place] [address] Oct, Diabetes mellitus E11.9 ; De pression F32.9 ; Mixed hyperlipidemia E78.2 ; Hypotension, unspecified hypotension type I95.9 ; Pulmonary emphysema, unspecified emphysema type J43.9 and Weight loss, unintentional R63.4 [place] [address] [place] [id number] [address] [place] [address] Oct, Chronic pain G89.29 [place] [address] [place] [id number] [address] [place] [address] Sep, Chronic pain G89.29 [place] [address] [place] [id number] [address] [place] [address] Sep, Hypothyroid E03.9 and Diabet es mellitus E11.9 [place] [address] [place] [id number] [address] [place] [address] Aug, Type 2 diabetes mellitus wit h hyperglycemia E11.65 ; 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 ; Essential (primary) hypertension I10 ; Hypothyroid E03.9 ; Neuropathy G62.9 ; Chronic pain G89.29 ; Mixed hy perlipidemia E78.2 and Encounter for immunization Z23 [place] [address] [facility] [id number] [address] [place] [address] Aug, Chronic pain G89.29 [facility] [address] [id number] [address] [place] [address] Aug, Overactive bladder N32.81 ; Diabetes mellitus E11.9 and Chronic pain G89.29 [facility] [address] [id number] [address] [place] [address] Jul, [facility] [address] [facility] [id number] [address] [place] [address] Jun, [facility] [address] [id number] [address] [place] [address] Jun, [facility] [address] [facility] [id number] [address] [place] [address] Jun, Hypothyroid E03.9 [facility] [address] [facility] [id number] [address] [place] [address] Jun, Diabetes mellitus E11.9 ; Hy pothyroid E03.9 ; Neuropathy G62.9 ; Chronic pain G89.29 and Neck mass R22.1 [facility] [address] [facility] [id number] [address] [place] [address] Apr, [facility] [address] [facility] [id number] [address] [place] [address] Apr, Acute cystitis without hemat uria N30.00 [facility] [address] [facility] [id number] [address] [place] [address] March, [facility] [address] [facility] [id number] [address] [place] [address] March, [facility] [address] [facility] [id number] [address] [place] [address] March, Near syncope R55 [facility] [address] [facility] [id number] [address] [place] [address] Feb, [facility] [address] [facility] [id number] [address] [place] [address] Feb, Chronic pain G89.29 [facility] [address] [facility] [id number] [address] [place] [address] Feb, [facility] [address] [place] [id number] [address] [place] [address] Feb, [facility] [address] [facility] [id number] [address] [place] [address] Jan, Chronic pain G89.29 [facility] [address] [place] [id number] [address] [place] [address] Jan, [facility] [address] [place] [id number] [address] [place] [address] Jan, [facility] [address] [place] [id number] [address] [place] [address] Jan, Diabetes mellitus E11.9 ; Hy pothyroid E03.9 ; GERD (gastroesophageal reflux disease) K21.9 ; Insomnia G47.00 ; Functional diarrhea K59.1 ; Neuropathy G62.9 ; Depression F32.9 ; Chronic pain G89.29 ; Irritable bowel syndrome with diarrhea K58.0 ; Overactive bladder N32.81 ; Mixed hyperlipidemia E78.2 and Bronchitis J40 [facility] [address] [place] [id number] [address] [place] [address] Dec, [facility] [address] [place] [id number] [address] [place] [address] Dec, [facility] [id number] [place] [address] Dec, [facility] [address] [facility] [id number] [address] [place] [address] Dec, [facility] [address] [place] [id number] [address] [place] [address] Dec, Chronic pain G89.29 [facility] [address] [place] [id number] [address] [place] [address] Dec, [facility] [address] [place] [id number] [address] [place] [address] Dec, [place] [address] [address] Dec, Type 2 diabetes mellitus wit h foot ulcer E11.621 [place] [address] [address] 17 Dec, 2016 Type 2 diabetes mellitus wit h foot ulcer E11.621 [place] [address] [address] 14 Dec, 2016 HTN (hypertension) I10 ; Dep ression F32.9 ; Type 2 diabetes mellitus with foot ulcer E11.621 ; Functional diarrhea K59.1 ; Irritable bowel syndrome with diarrhea K58.0 ; Chronic pain G89.29 ; Insomnia G47.00 ; Overactive bladder N32.81 ; Mixed hyperlipidemia E78.2 ; Gastroesophageal reflux disease with esophagitis K21.0 and Acquired hypothyroidism E03.9 [place] [address] [address] Nov, [place] [address] [address] Oct, [place] [address] [address] Oct, [place] [address] [address] Oct, [place] [address] [address] Sep, Functional diarrhea K59.1 ; HTN (hypertension) I10 ; Diabetes mellitus E11.9 ; Depression F32.9 ; Overactive bladder N32.81 ; Mixed hyperlipidemia E78.2 ; Gastroesophageal reflux disease without esophagitis K21.9 ; Chronic pain G89.29 ; Insomnia G47.00 and Acquired hypothyroidism E03.9 [place] [address] [address] Sep, [place] [address] [address] 11 Aug, 2016 Encounter for immunization Z 23 [place] [address] [address] 06 Aug, 2016 [place] [address] [address] Jul, [place] [address] [address] Jun, Type 2 diabetes mellitus wit hout complications E11.9 ; HTN (hypertension) I10 ; Hypothyroid E03.9 ; Neuropathy G62.9 ; Depression F32.9 ; Chronic pain G89.29 ; GERD (gastroesophageal reflux disease) K21.9 ; Insomnia G47.00 ; Overactive bladder N32.81 ; Mixed hyperlipidemia E78.2 ; Diarrhea of infectious origin A09 and Environmental allergies Z91.09 [place] [address] [address] Apr, [place] [address] [address] March, Hypothyroidism, unspecified E03.9 and Mixed hyperlipidemia E78.2 [place] [address] [address] March, Diabetes mellitus E11.9 ; HT N (hypertension) I10 ; Hypothyroid E03.9 ; Depression F32.9 ; Overactive bladder N32.81 ; Other chronic pain G89.29 ; Lumbago with sciatica, unspecified side M54.40 ; Environmental allergies Z91.09 and Gastroesophageal reflux disease, esophagitis presence not specified K21.9 [place] [address] [address] March, [place] [address] [address] Jan, HTN (hypertension) I10 ; Hyp othyroid E03.9 ; Neuropathy G62.9 ; Diabetes mellitus E11.9 ; Chronic pain G89.29 ; GERD (gastroesophageal reflux disease) K21.9 ; Overactive bladder N32.81 and Depression F32.9 [place] [address] [place] [address] 12 Dec, 2015 Ear pain, left H92.02 ; HTN (hypertension) I10 ; Hypothyroid E03.9 ; Neuropathy G62.9 ; Diabetes mellitus E11.9 ; Depression F32.9 ; GERD (gastroesophageal reflux disease) K21.9 ; Insomnia G47.00 and Overactive bladder N32.81 [place] [address] [place] [id number] [address] [place] [address] Nov, Overactive bladder N32.81 an d Chronic pain G89.29 [place] [address] [place] [id number] [address] [place] [address] Nov, Kidney failure N19 [place] [address] [address] Nov, [place] [address] [place] [id number] [address] [place] [address] Nov, [place] [address] [address] Nov, Diabetes mellitus E11.9 ; De pression F32.9 ; Chronic pain G89.29 ; GERD (gastroesophageal reflux disease) K21.9 ; Insomnia G47.00 ; HTN (hypertension) I10 ; Hypothyroid E03.9 ; COPD (chronic obstructive pulmonary disease) J44.9 ; Bladder incontinence R32 and Incontinence R32 [place] [address] [place] [id number] [address] [place] [address] Sep, Type 2 diabetes mellitus wit h foot ulcer E11.621 and Chromosomal abnormality, 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 [place] [address] [place] [id number] [address] [place] [address] Sep, [place] [address] [place] [id number] [place] [address] Aug, [address] [address] Aug, [address] [address] Aug, HTN (hypertension) I10 ; Enc ounter for immunization Z23 ; Hypothyroid E03.9 ; Neuropathy G62.9 ; Diabetes mellitus E11.9 ; Depression F32.9 ; Chronic pain G89.29 ; GERD (gastroesophageal reflux disease) K21.9 ; Insomnia G47.00 and COPD (chronic obstructive pulmonary disease) J44.[address] [address] Jun, [address] [address] Jun, [address] [address] May, Essential hypertension, ivis gn 401.1 ; Unspecified hypothyroidism 244.9 ; Insomnia, unspecified 780.52 ; Shortness of breath 786.05 ; Depression 311 ; COPD (chronic obstructive pulmonary disease) 496 ; GERD (gastroesophageal reflux disease) 530.81 and Diabetes 1.5, 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 [address] May, [address] [address] May, [address] [address] May, Shortness of breath 786.05 ; Essential hypertension, benign 401.1 ; Diabetes mellitus 250.00 ; Hyperlipidemia 272.4 ; Hypothyroid 244.9 ; Insomnia 780.52 and Cough 786.[address] [address] Apr, [address] [address] March, Shortness of breath 786.05 ; Nausea with vomiting 787.01 ; Essential hypertension, benign 401.1 ; Diabetes mellitus 250.00 ; Hyperlipidemia 272.4 and Hypothyroid 244.9 [facility] [address] [id number] [address] [place] [address] 14 Feb, 2015 [facility] [address] [id number] [address] [place] [address] Feb, [facility] [address] [id number] [address] [place] [address] Jan, [facility] [address] [id number] [address] [place] [address] Jan, [facility] [address] [id number] [address] [place] [address] Jan, [facility] [address] [id number] [address] [place] [address] Jan, [facility] [address] [id number] [address] [place] [address] Jan, [facility] [address] [id number] [address] [place] [address] Jan, [facility] [address] [facility] [id number] [address] [place] [address] Jan, [facility] [address] [id number] [address] [place] [address] Jan, [facility] [address] [id number] [address] [place] [address] Jan, [facility] [address] [id number] [address] [place] [address] Jan, [facility] [address] [id number] [address] [place] [address] Dec, [facility] [address] [id number] [address] [place] [address] Dec, [facility] [address] [id number] [address] [place] [address], [place] [address] Dec, 2014 [facility] [address] [id number] [address] [place] [address], [place] [address] Dec, 2014 [facility] [address] [id number] [address] [place] [address], [place] [address] Dec, 2014 [facility] [address] [id number] [address] [place] [address], [place] [address] Dec, 2014 [facility] [address] [id number] [address] [place] [address], [place] [address] Dec, 2014 [facility] [address] [id number] [address] [place] [address], [place] [address] Dec, 2014 [facility] [address] [id number] [address] [place] [address], [place] [address] Dec, 2014 [facility] [address] [id number] [address] [place] [address], [place] [address] Dec, 2014 [facility] [address] [id number] [address] [place] [address], [place] [address] Oct, [facility] [address] [id number] [address] [place] [address], [place] [address] Oct, [facility] [address] [id number] [address] [place] [address], [place] [address] Oct, [facility] [address] [id number] [address] [place] [address], [place] [address] Oct, [facility] [address] [id number] [address] [place] [address], [place] [address] Oct, [facility] [address] [id number] [address] [place] [address], [place] [address] Oct, [facility] [address] [id number] [address] [place] [address], [place] [address] Oct, [facility] [address] [id number] [address] [place] [address], [place] [address] 05 Oct, 2014 [facility] [address] [id number] [address] [place] [address], [place] [address] Oct, [facility] [address] [id number] [address] [place] [address], [place] [address] Oct, [facility] [address] [id number] [address] [place] [address], [place] [address] Oct, [facility] [address] [id number] [address] [place] [address], [place] [address] Oct, [facility] [address] [id number] [address] [place] [address], [place] [address] Oct, [facility] [address] [id number] [address] [place] [address], [place] [address] Oct, [facility] [address] [id number] [address] [place] [address], [place] [address] Sep, [facility] [address] [id number] [address] [place] [address], [place] [address] Sep, [facility] [address] [id number] [address] [place] [address], [place] [address] Sep, [facility] [address] [id number] [address] [place] [address], [place] [address] Sep, [facility] [address] [id number] [address] [place] [address], [place] [address] Sep, [facility] [address] [id number] [address] [place] [address], [place] [address] Sep, [facility] [address] [id number] [address] [place] [address], [place] [address] Sep, [facility] [address] [id number] [address] [place] [address], [place] [address] Sep, [facility] [address] [id number] [address] [place] [address], [place] [address] Sep, [facility] [address] [id number] [address] [place] [address], [place] [address] Aug, [facility] [address] [id number] [address] [place] [address], [place] [address] Aug, [facility] [address] [id number] [address] [place] [address], [place] [address] Aug, [facility] [address] [id number] [address] [place] [address], [place] [address] Aug, [facility] [address] [id number] [address] [place] [address], [place] [address] 16 Aug, 2014 [facility] [address] [id number] [address] [place] [address], [place] [address] Aug, [facility] [address] [id number] [address] [place] [address], [place] [address] Aug, [facility] [address] [id number] [address] [place] [address], [place] [address] Aug, [facility] [address] [id number] [address] [place] [address], [place] [address] Aug, [facility] [address] [id number] [address] [place] [address], [place] [address] 29 Jul, 2014 [facility] [address] [id number] [address] [place] [address], [place] [address] 29 Jul, 2014 [facility] [address] [id number] [address] [place] [address], [place] [address] 25 Jul, 2013 [facility] [address] [id number] [address] [place] [address], [place] [address] 25 Jul, 2014 [facility] [address] [id number] [address] [place] [address], [place] [address] 25 Jul, 2013 [facility] [address] [id number] [address] [place] [address], [place] [address] 25 Jul, 2014 [facility] [address] [id number] [address] [place] [address], [place] [address] Jul, [facility] [address] [id number] [facility] [place] [address] Jul, [facility] [address] [id number] [address] [place] [address], [place] [address] Jul, [facility] [address] [id number] [address] [place] [address], [place] [address] Jul, [facility] [address] [id number] [address] [place] [address], [place] [address] Jun, [facility] [address] [id number] [address] [place] [address], [place] [address] Jun, [facility] [address] [id number] [address] [place] [address], [place] [address] Jun, [facility] [address] [id number] [address] [place] [address], [place] [address] Jun, [facility] [address] [id number] [address] [place] [address], [place] [address] Jun, [facility] [address] [id number] [address] [place] [address], [place] [address] Jun, [facility] [address] [id number] [address] [place] [address], [place] [address] Jun, [facility] [address] [id number] [address] [place] [address], [place] [address] Jun, [facility] [address] [id number] [address] [place] [address], [place] [address] Jun, [facility] [address] [id number] [address] [place] [address], [place] [address] Jun, [facility] [address] [id number] [address] [place] [address], [place] [address] Jun, [facility] [address] [id number] [address] [place] [address], [place] [address] Jun, [facility] [address] [id number] [facility] [place] [address] May, [facility] [address] [id number] [facility] [place] [address] May, [facility] [address] [id number] [facility] [place] [address] May, [facility] [address] [id number] [address] [place] [address], [place] [address] May, [facility] [address] [id number] [address] [place] [address], [place] [address] May, [facility] [address] [id number] [address] [place] [address], [place] [address] May, [facility] [address] [id number] [address] [place] [address], [place] [address] March, [facility] [address] [id number] [address] [place] [address], [place] [address] March, [facility] [address] [id number] [address] [place] [address], [place] [address] March, [facility] [address] [id number] [address] [place] [address], [place] [address] March, [facility] [address] [id number] [address] [place] [address], [place] [address] March, [facility] [address] [id number] [address] [place] [address], [place] [address] March, [facility] [address] [id number] [address] [place] [address], [place] [address] Feb, [facility] [address] [id number] [address] [place] [address], [place] [address] Feb, [facility] [address] [id number] [address] [place] [address], [place] [address] Feb, [facility] [address] [id number] [address] [place] [address], [place] [address] Feb, [facility] [address] [id number] [facility] [place] [address] Jan, [facility] [address] [id number] [address] [place] [address], [place] [address] Jan, [facility] [address] [id number] [address] [place] [address], [place] [address] Jan, [facility] [address] [id number] [address] [place] [address], [place] [address] Jan, [facility] [address] [id number] [address] [place] [address], [place] [address] Jan, [facility] [address] [id number] [address] [place] [address], [place] [address] Jan, [facility] [address] [id number] [address] [place] [address], [place] [address] Jan, [facility] [address] [id number] [address] [place] [address], [place] [address] Jan, [facility] [address] [id number] [address] [place] [address], [place] [address] Jan, [facility] [address] [id number] [address] [place] [address], [place] [address] Jan, [facility] [address] [id number] [address] [place] [address], [place] [address] Jan, [facility] [address] [id number] [address] [place] [address], [place] [address] Jan, [facility] [address] [id number] [address] [place] [address], [place] [address] Dec, [facility] [address] [id number] [address] [place] [address], [place] [address] Dec, [facility] [address] [id number] [address] [place] [address], [place] [address] Dec, [facility] [address] [id number] [address] [place] [address], [place] [address] Dec, [facility] [address] [id number] [address] [place] [address], [place] [address] Dec, [facility] [address] [id number] [address] [place] [address], [place] [address] Dec, [facility] [address] [id number] [address] [place] [address], [place] [address] Nov, [facility] [address] [id number] [address] [place] [address], [place] [address] Nov, [facility] [address] [id number] [address] [place] [address], [place] [address] Oct, [facility] [address] [id number] [address] [place] [address], [place] [address] Oct, [facility] [address] [id number] [address] [place] [address], [place] [address] Oct, [facility] [address] [id number] [address] [place] [address], [place] [address] Oct, [facility] [address] [id number] [address] [place] [address], [place] [address] Oct, [facility] [address] [id number] [address] [place] [address], [place] [address] Oct, [facility] [address] [id number] [address] [place] [address], [place] [address] Sep, [facility] [address] [id number] [address] [place] [address], [place] [address] Sep, [facility] [address] [id number] [address] [place] [address], [place] [address] Sep, [facility] [address] [id number] [address] [place] [address], [place] [address] Sep, [facility] [address] [id number] [address] [place] [address], [place] [address] Aug, [facility] [address] [id number] [address] [place] [address], [place] [address] Aug, [facility] [address] [id number] [address] [place] [address], [place] [address] Aug, [facility] [address] [id number] [address] [place] [address], [place] [address] 17 Jul, 2013 [facility] [address] [id number] [address] [place] [address], [place] [address] 14 Jul, 2013 [facility] [address] [id number] [address] [place] [address], [place] [address] Jul, [facility] [address] [id number] [address] [place] [address], [place] [address] Jun, [facility] [address] [id number] [address] [place] [address], [place] [address] Jun, [facility] [address] [id number] [address] [place] [address], [place] [address] Jun, [facility] [address] [id number] [address] [place] [address], [place] [address] Apr, [facility] [address] [id number] [address] [place] [address], [place] [address] Apr, [facility] [address] [id number] [address] [place] [address], [place] [address] March, [facility] [address] [id number] [address] [place] [address], [place] [address] March, [facility] [address] [id number] [address] [place] [address], [place] [address] March, [facility] [address] [id number] [address] [place] [address], [place] [address] March, [facility] [address] [id number] [address] [place] [address], [place] [address] Feb, [facility] [address] [id number] [address] [place] [address] Jan, [facility] [address] [id number] [address] [place] [address], [place] [address] 13 Dec, 2012 [facility] [address] [id number] [address] [place] [address], [place] [address] 08 Dec, 2012 [facility] [address] [id number] [address] [place] [address], [place] [address] Dec, [facility] [address] [id number] [address] [place] [address], [place] [address] Nov, [facility] [address] [id number] [address] [place] [address], [place] [address] Oct, [facility] [address] [id number] [address] [place] [address], [place] [address] Oct, [facility] [address] [id number] [address] [place] [address], [place] [address] Sep, [facility] [address] [id number] [address] [place] [address], [place] [address] Sep, [facility] [address] [id number] [address] [place] [address], [place] [address] Sep, [facility] [address] [id number] [address] [place] [address], [place] [address] Sep, [facility] [address] [id number] [address] [place] [address], [place] [address] Sep, [facility] [address] [id number] [address] [place] [address] Sep, [facility] [address] [id number] [address] [place] [address], [place] [address] Sep, [facility] [address] [id number] [address] [place] [address], [place] [address] Aug, [facility] [address] [id number] [address] [place] [address] Aug, [facility] [address] [id number] [address] [place] [address], [place] [address] 10 Aug, 2012 [facility] [address] [id number] [address] [place] [address], [place] [address] Aug, [facility] [address] [id number] [address] [place] [address], [place] [address] 08 Aug, 2012 [facility] [address] [id number] [address] [place] [address], [place] [address] 08 Aug, 2012 [facility] [address] [id number] [address] [place] [address], [place] [address] Aug, [facility] [address] [id number] [address] [place] [address], [place] [address] Aug, [facility] [address] [id number] [address] [place] [address], [place] [address] Jul, [facility] [address] [id number] [address] [place] [address], [place] [address] Jul, [facility] [address] [id number] [address] [place] [address], [place] [address] Jun, [facility] [address] [id number] [address] [place] [address], [place] [address] May, [facility] [address] [id number] [address] [place] [address], [place] [address] Apr, [facility] [address] [id number] [address] [place] [address], [place] [address] Apr, [facility] [address] [id number] [address] [place] [address], [place] [address] Apr, [facility] [address] [id number] [address] [place] [address], [place] [address] March, [facility] [address] [id number] [address] [place] [address], [place] [address] March, [facility] [address] [id number] [address] [place] [address], [place] [address] March, [facility] [address] [id number] [address] [place] [address], [place] [address] March, [facility] [address] [id number] [address] [place] [address], [place] [address] March, [facility] [address] [id number] [address] [place] [address], [place] [address] March, [facility] [address] [id number] [address] [place] [address], [place] [address] March, [facility] [address] [id number] [address] [place] [address], [place] [address] Jan, [facility] [address] [id number] [address] [place] [address], [place] [address] Jan, [facility] [address] [id number] [address] [place] [address], [place] [address] Jan, [facility] [address] [id number] [address] [place] [address], [place] [address] Jan, [facility] [address] [id number] [address] [place] [address], [place] [address] Jan, [facility] [address] [id number] [address] [place] [address], [place] [address] Dec, [facility] [address] [id number] [address] [place] [address], [place] [address] Dec, [facility] [address] [id number] [address] [place] [address], [place] [address] Nov, [facility] [address] [id number] [address] [place] [address], [place] [address] Nov, [facility] [address] [id number] [address] [place] [address], [place] [address] Nov, [facility] [address] [id number] [address] [place] [address], [place] [address] Nov, [facility] [address] [id number] [address] [place] [address], [place] [address] 21 Oct, 2011 [facility] [address] [id number] [address] [place] [address], [place] [address] 06 Oct, 2011 [facility] [address] [id number] [address] [place] [address], [place] [address] 14 Sep, 2011 [facility] [address] [id number] [address] [place] [address], [place] [address] 10 Sep, 2011 [facility] [address] [id number] [address] [place] [address], [place] [address] 10 Sep, 2011 [facility] [address] [id number] [address] [place] [address], [place] [address] 11 May, 2011 [facility] [address] [id number] [address] [place] [address], [place] [address] Nov, [facility] [address] [id number] [address] [place] [address], [place] [address] 29 Oct, 2010 [facility] [address] [id number] [address] [place] [address], [place] [address] 14 Oct, 2010 [facility] [address] [id number] [address] [place] [address], [place] [address] 08 Oct, 2010 [facility] [address] [id number] [address] [place] [address], [place] [address] 15 Sep, 2010 [facility] [address] [id number] [address] [place] [address], [place] [address] Sep, [facility] [address] [id number] [address] [place] [address], [place] [address] Aug, [facility] [address] [id number] [address] [place] [address], [place] [address] March, [facility] [address] [id number] [address] [place] [address], [place] [address] Oct, [facility] [address] [id number] [address] [place] [address], [place] [address] Oct, [facility] [address] [id number] [address] [place] [address] Oct, [facility] [address] [id number] [address] [place] [address] Oct, [facility] [address] [id number] [address] [place] [address] Sep, [facility] [address] [id number] [address] [place] [address] Sep, [facility] [address] [id number] [address] [place] [address] Sep, [facility] [address] [id number] [address] [place] [address] Aug, [facility] [address] [id number] [address] [place] [id number] Aug, [facility] [address] [id number] [address] [place] [phone] Aug, [facility] [address] [id number] [address] [place] [id number] Jan, IMMUNIZATIONS No Known Immunizations SOCIAL HISTORY Never Assessed REASON FOR VISIT states he is here for depression- Nicole Redd RN PLAN OF CARE Activity Details Follow Up 3 Months, prn Reason:CHM/DM VITAL SIGNS Height 69 in 2018-06-25 Weight 177 lbs 2018-06-25 Temperature 98.0 degrees Fahrenheit 2018-06-25 Heart Rate 60 bpm 2018-06-25 Respiratory Rate 18 2018-06-25 BMI 26.14 kg/m2 2018-06-25 Blood pressure systolic 122 mmHg 2018-06-25 Blood pressure diastolic 74 mmHg 2018-06-25 MEDICATIONS Medication Instructions Dosage Frequency Start Date End Date Duration S tatus Victoza 18 MG/3ML Subcutaneous Once a day 1.8 mg 24h 12 months Active NovoLog Flexpen 100 UNIT/ML Subcutaneous 3 times a day wit meals 10 units 14 Jan, 2017 12 months Active Dicyclomine HCl 20 mg Orally 4 times a day TAKE ONE TABLET B Y MOUTH FOUR TIMES DAILY 6h 90 days Active Welchol 625 MG Orally Once a day 1 capsule 24h 21 Apr, 2017 90 days Active MetFORMIN HCl ER 500 mg Orally twice a day 2 tablets 12h 90 days Active Levothyroxine Sodium 125 MCG Orally Once a day on an e mpty stomach with a full glass of water 1 tablet Active Gabapentin 300 MG Orally Once a day 1 capsule before bedtime 24h Jan, 90 days Active Lisinopril 10 mg Orally Once a day 1 tablet 24h Jan, 90 days Active Hydrocodone-Acetaminophen 5-325 MG Orally 3 times a day 1 tablet as needed 8h 10 May, 2018 Active BD Ultra-Fine Micro Pen Needle 32G X 6 MM subcutaneously 3 t imes a day use to inject insulin 8h 31 May, 2018 Active Omeprazole 20 mg Orally 2 times a day TAKE ONE CAPSULE BY MOUTH TWI CE DAILY 12h 90 days Active Nystatin-Triamcinolone 243049-6.1 UNIT/GM Externally Twice a day apply thin layer to rash on legs 12h Jun, Jun, 10 days Active Oxybutynin Chloride 5 mg Orally Twice a day 1 tablet 12h 90 days Active Levemir FlexTouch 100 UNIT/ML Subcutaneous 2 times a day INJ ECT 50 UNITS SUBCUTANEOUSLY TWICE DAILY (MUST KEEP APPOINTMENT ON 11/08 FOR REFILLS) 12h Active Trazodone HCl 50 mg Orally Once a day 1 tablet at bedtime as needed 24h Apr, 30 day(s) Active Pravastatin Sodium 20 mg Orally Once a day 1 tablet 24h 17 Mar, 2018 90 days Active Proventil HFA 108 (90 Base) MCG/ACT Inhalation every 4 hrs 2 puffs as needed 4h 13 May, 2015 12 months Active RESULTS Name Result Date Reference Range A1C (IN HOUSE) 2018-06-25 A1C IN HOUSE 8.7 4.3 - 5.6 % Previous A1c 7.3 Lot [id number] Exp date 01/29 TSH 2018-06-25 TSH 4.73 0.40-4.50 PROCEDURES Procedure Date Ordered Result Body Site GLYCATED HEMOGLOBIN TEST Jun 25, 2018 LAB NOT BILLED BY [facility] Jun 25, 2018 INSTRUCTIONS MEDICATIONS ADMINISTERED No Known Medications [...]
--- OUTSIDE RECORDS SUMMARY | 2020-06-13 16:21 | XMS REPORT ---
Author Author Jah PARKER Organization [facility] Address [address] [place] [address] Care Team Providers Care Basting Marker Name Role Phone PARKERSHAYLEE MckeonELE Unavailable PROBLEMS Type Condition ICD9-CM Code FZV04-FW Code Onset Dates Condition S tatus SNOMED Code Problem Type 2 diabetes mellitus with hyperglycemia E11.65 Active 86579298 Problem Pulmonary emphysema, unspecified emphysema type J4 3.9 Active 81680782 Problem Essential (primary) hypertension I10 Active 11654635 Problem Hypertriglyceridemia E78.1 Active 833869735 Problem Major depressive disorder, recurrent episode, moderate F33.1 Active 478286108 Problem Recurrent major depressive disorder, in partial remission F33.41 Active 09033608 Problem Current non-adherence to medical treatment Z91.19 Active 4309280 Problem Anxiety disorder, unspecified type F41.9 Active 640817664 Problem Chronic fatigue R53.82 Active 8422 9001 Problem Chronic pain G89.29 Active 6925854 1 Problem Neuropathy G62.9 Active 805617386 Problem Thrombocytosis D47.3 Active 73927 09 Problem Mixed hyperlipidemia E78.2 Active 279351806 Problem Gastroesophageal reflux disease with esophagitis K 21.0 Active 073484142 Problem Hypothyroid E03.9 Active 34226815 Problem Irritable bowel syndrome with diarrhea K58.0 Active 198093778 Problem Overactive bladder N32.81 Active 2 85159336 Problem shelter current use of insulin Z79.4 Active 950367611 ALLERGIES No Information ENCOUNTERS Encounter Location Date Diagnosis [facility] [address] [facility] [id number] [address] [place] [address] Jun, Type 2 diabetes mellitus wit h hyperglycemia E11.65 ; Neuropathy G62.9 ; Recurrent major depressive disorder, in partial remission F33.41 ; Chronic pain G89.29 and Hypertriglyceridemia E78.1 [facility] [address] [facility] [id number] [address] [place] [address] Jun, Hypothyroid E03.9 [facility] [address] [id number] [address] [place] [address] Jun, Major depressive disorder, r ecurrent episode, moderate F33.1 and Anxiety disorder, unspecified type F41.9 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.4 ; Recurrent major depressive disorder, in partial remission F33.41 ; Hypothyroid E03.9 ; Candidal dermatitis B37.2 and Weakness generalized R53.1 [place] [address] [facility] [id number] [address] [place] [address] May, [place] [address] [id number] [address] [place] [address] May, [place] [address] [id number] [address] [place] [address] May, [place] [address] [facility] [id number] [address] [place] [address] May, Generalized abdominal pain R 10.84 and Candidal dermatitis B37.2 [place] [address] [facility] [id number] [address] [place] [address] May, [place] [address] [id number] [address] [place] [address] May, [place] [address] [facility] [id number] [address] [place] [address] May, Nodular radiologic density R 93.8 ; Weight loss, unintentional R63.4 and Pulmonary emphysema, unspecified emphysema type J43.9 [place] [address] [facility] [id number] [address] [place] [address] May, Chronic pain G89.29 [facility] [address] [id number] [address] [place] [id number] 09 May, 2018 Syncope and collapse R55 ; C hronic fatigue R53.[address] lung screening R91.8 [facility] [address] [id number] [address] [place] [address] May, [facility] [address] [id number] [address] [place] [address] Apr, Chronic fatigue R53.82 ; Abn ormal chest CT R93.8 ; Elevated erythrocyte sedimentation rate R70.0 ; Hypothyroid E03.9 and Recurrent major depressive disorder, in partial remission F33.41 [facility] [address] [id number] [address] [place] [address] Apr, Hypothyroid E03.9 [facility] [address] [id number] [address] [place] [address] Apr, Depression F32.9 [facility] [address] [id number] [address] [place] [address] Apr, [facility] [address] [id number] [address] [place] [address] March, [facility] [address] [facility] [id number] [address] [place] [address] March, Hypothyroid E03.9 [facility] [address] [facility] [id number] [address] [place] [address] March, Diabetes mellitus E11.9 and Hypothyroid E03.9 [facility] [address] [id number] [address] [place] [address] March, Diabetes mellitus E11.9 [facility] [address] [facility] [id number] [address] [place] [address] March, Hypothyroid E03.9 and Elevat ed liver enzymes R74.8 [facility] [address] [facility] [id number] [address] [place] [address] March, Type 2 diabetes mellitus wit h [...] disorder, in partial remission F33.41 [place] [id number] [place] [address] Feb, Chronic pain G89.29 [place] [id number] [place] [address] Feb, Type 2 diabetes mellitus wit h hyperglycemia E11.65 and Skin lesion of scalp L98.9 [place] [id number] [address] [place] [address] Feb, [place] [address] [address] Jan, Type 2 diabetes mellitus wit h [...] bowel syndrome with diarrhea K58.0 [place] [address] [place] [id number] [address] [place] [address] Jan, [place] [address] [place] [id number] [address] [place] [address] Jan, Controlled substance agreeme nt signed Z79.899 [place] [address] [place] [id number] [address] [place] [address] Dec, Type 2 diabetes mellitus wit h hyperglycemia E11.65 ; Controlled substance agreement signed Z79.899 ; long term care pharmacist current use of insulin Z79.4 ; Essential (primary) hypertension I10 ; Hypothyroid E03.9 ; Neuropathy G62.9 ; Depression F32.9 ; Mixed hyperlipidemia E78.2 ; Irritable bowel syndrome with diarrhea K58.0 ; Gastroesophageal reflux disease with esophagitis K21.0 ; Thrombocytosis D47.3 ; Current non-adherence to medical treatment Z91.19 and Overweight (BMI 25.0-29.9) E66.3 [place] [address] [facility] [id number] [address] [place] [address] 02 Dec, 2017 Controlled substance agreeme nt signed Z79.899 [place] [address] [place] [id number] [address] [place] [address] Nov, Type 2 diabetes mellitus wit h hyperglycemia E11.65 and Current non- adherence to medical treatment Z91.19 [place] [address] [facility] [id number] [address] [place] [address] Nov, [place] [address] [facility] [id number] [address] [place] [address] Nov, Chronic pain G89.29 [place] [address] [place] [id number] [address] [place] [address] Nov, [place] [address] [place] [id number] [address] [place] [address] Nov, Hypothyroid E03.9 [place] [address] [facility] [id number] [address] [place] [address] Nov, Hypothyroid E03.9 [place] [address] [facility] [id number] [address] [place] [address] Nov, Pulmonary emphysema, unspeci fied emphysema type J43.9 and Irritable bowel syndrome with diarrhea K58.0 [place] [address] [facility] [id number] [address] [place] [address] Oct, [place] [address] [place] [id number] [address] [place] [address] Oct, [place] [id number] [place] [address] Oct, [place] [address] [facility] [id number] [address] [place] [address] Oct, [place] [address] [place] [id number] [address] [place] [address] Oct, Chronic pain G89.29 [place] [address] [address] Oct, Diabetes mellitus E11.9 ; De pression F32.9 ; Mixed hyperlipidemia E78.2 ; Hypotension, unspecified hypotension type I95.9 ; Pulmonary emphysema, unspecified emphysema type J43.9 and Weight loss, unintentional R63.4 [place] [address] [address] Oct, Chronic pain G89.29 [place] [address] [address] Sep, Chronic pain G89.29 [place] [address] [address] Sep, Hypothyroid E03.9 and Diabet es mellitus E11.9 [place] [address] [address] Aug, Type 2 diabetes mellitus wit h hyperglycemia E11.65 ; long term care pharmacist current use of insulin Z79.4 ; Essential (primary) hypertension I10 ; Hypothyroid E03.9 ; Neuropathy G62.9 ; Chronic pain G89.29 ; Mixed hy perlipidemia E78.2 and Encounter for immunization Z23 [place] [address] [place] [id number] [address] [place] [address] Aug, Chronic pain G89.29 [place] [address] [place] [id number] [address] [place] [address] Aug, Overactive bladder N32.81 ; Diabetes mellitus E11.9 and Chronic pain G89.29 [place] [address] [place] [address] [place] [address] Jul, [facility] [address] [facility] [id number] [address] [place] [address] Jun, [facility] [address] [facility] [id number] [address] [place] [address] Jun, [facility] [address] [facility] [id number] [address] [place] [address] Jun, Hypothyroid E03.9 [facility] [address] [facility] [id number] [address] [place] [address] Jun, Diabetes mellitus E11.9 ; Hy pothyroid E03.9 ; Neuropathy G62.9 ; Chronic pain G89.29 and Neck mass R22.1 [facility] [address] [facility] [id number] [address] [place] [address] Apr, [facility] [address] [facility] [id number] [address] [place] [address] Apr, Acute cystitis without hemat uria N30.00 [facility] [address] [facility] [id number] [address] [place] [address] March, [facility] [address] [facility] [id number] [address] [place] [address] March, [facility] [address] [facility] [id number] [address] [place] [address] March, Near syncope R55 [facility] [address] [facility] [id number] [address] [place] [address] Feb, [facility] [address] [facility] [id number] [address] [place] [address] Feb, Chronic pain G89.29 [facility] [address] [facility] [id number] [address] [place] [address] Feb, [facility] [address] [facility] [id number] [address] [place] [address] Feb, [facility] [address] [place] [id number] [address] [place] [address] Jan, Chronic pain G89.29 [facility] [address] [address] Jan, [facility] [address] [address] 16 Jan, 2017 [facility] [address] [address] 14 Jan, 2017 Diabetes mellitus E11.9 ; Hy pothyroid E03.9 ; GERD (gastroesophageal reflux disease) K21.9 ; Insomnia G47.00 ; Functional diarrhea K59.1 ; Neuropathy G62.9 ; Depression F32.9 ; Chronic pain G89.29 ; Irritable bowel syndrome with diarrhea K58.0 ; Overactive bladder N32.81 ; Mixed hyperlipidemia E78.2 and Bronchitis J40 [facility] [address] [address] Dec, [facility] [address] [place] [id number] [address] [place] [address] Dec, [facility] [address] [address] Dec, [facility] [address] [place] [id number] [address] [place] [address] Dec, [facility] [address] [place] [id number] [address] [place] [address] Dec, Chronic pain G89.29 [facility] [address] [place] [id number] [address] [place] [address] Dec, [facility] [address] [place] [id number] [address] [place] [address] Dec, [facility] [address] [place] [id number] [address] [place] [address] Dec, Type 2 diabetes mellitus wit h foot ulcer E11.621 [place] [address] [place] [id number] [address] [place] [address] 17 Dec, 2016 Type 2 diabetes mellitus wit h foot ulcer E11.621 [place] [address] [place] [id number] [place] [address] 14 Dec, 2016 HTN (hypertension) I10 ; Dep ression F32.9 ; Type 2 diabetes mellitus with foot ulcer E11.621 ; Functional diarrhea K59.1 ; Irritable bowel syndrome with diarrhea K58.0 ; Chronic pain G89.29 ; Insomnia G47.00 ; Overactive bladder N32.81 ; Mixed hyperlipidemia E78.2 ; Gastroesophageal reflux disease with esophagitis K21.0 and Acquired hypothyroidism E03.9 [place] [address] [address] Nov, [place] [address] [address] Oct, [place] [address] [address] Oct, [place] [address] [address] Oct, [place] [address] [address] Sep, Functional diarrhea K59.1 ; HTN (hypertension) I10 ; Diabetes mellitus E11.9 ; Depression F32.9 ; Overactive bladder N32.81 ; Mixed hyperlipidemia E78.2 ; Gastroesophageal reflux disease without esophagitis K21.9 ; Chronic pain G89.29 ; Insomnia G47.00 and Acquired hypothyroidism E03.9 [place] [address] [address] Sep, [place] [address] [address] Aug, Encounter for immunization Z 23 [place] [address] [address] Aug, [place] [address] [address] Jul, [place] [address] [address] Jun, Type 2 diabetes mellitus wit hout complications E11.9 ; HTN (hypertension) I10 ; Hypothyroid E03.9 ; Neuropathy G62.9 ; Depression F32.9 ; Chronic pain G89.29 ; GERD (gastroesophageal reflux disease) K21.9 ; Insomnia G47.00 ; Overactive bladder N32.81 ; Mixed hyperlipidemia E78.2 ; Diarrhea of infectious origin A09 and Environmental allergies Z91.09 [place] [address] [address] Apr, [place] [address] [address] March, Hypothyroidism, unspecified E03.9 and Mixed hyperlipidemia E78.2 [place] [address] [address] March, Diabetes mellitus E11.9 ; HT N (hypertension) I10 ; Hypothyroid E03.9 ; Depression F32.9 ; Overactive bladder N32.81 ; Other chronic pain G89.29 ; Lumbago with sciatica, unspecified side M54.40 ; Environmental allergies Z91.09 and Gastroesophageal reflux disease, esophagitis presence not specified K21.9 [place] [address] [address] March, [place] [address] [address] Jan, HTN (hypertension) I10 ; Hyp othyroid E03.9 ; Neuropathy G62.9 ; Diabetes mellitus E11.9 ; Chronic pain G89.29 ; GERD (gastroesophageal reflux disease) K21.9 ; Overactive bladder N32.81 and Depression F32.9 [place] [address] [address] Dec, Ear pain, left H92.02 ; HTN (hypertension) I10 ; Hypothyroid E03.9 ; Neuropathy G62.9 ; Diabetes mellitus E11.9 ; Depression F32.9 ; GERD (gastroesophageal reflux disease) K21.9 ; Insomnia G47.00 and Overactive bladder N32.81 [place] [address] [place] [address] Nov, Overactive bladder N32.81 an d Chronic pain G89.29 [place] [address] [place] [id number] [place] [address] Nov, Kidney failure N19 [place] [address] [place] [id number] [place] [address] Nov, [place] [address] [place] [id number] [address] [place] [address] Nov, [place] [address] [address] Nov, Diabetes mellitus E11.9 ; De pression F32.9 ; Chronic pain G89.29 ; GERD (gastroesophageal reflux disease) K21.9 ; Insomnia G47.00 ; HTN (hypertension) I10 ; Hypothyroid E03.9 ; COPD (chronic obstructive pulmonary disease) J44.9 ; Bladder incontinence R32 and Incontinence R32 [place] [address] [place] [address] Sep, Type 2 diabetes mellitus wit h foot ulcer E11.621 and Chromosomal abnormality, 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 [place] [address] [place] [id number] [address] [place] [address] Sep, [place] [address] [place] [id number] [place] [address] Aug, [place] [address] [place] [id number] [address] [place] [address] Aug, [place] [address] [place] [id number] [place] [address] Aug, HTN (hypertension) I10 ; Enc ounter for immunization Z23 ; Hypothyroid E03.9 ; Neuropathy G62.9 ; Diabetes mellitus E11.9 ; Depression F32.9 ; Chronic pain G89.29 ; GERD (gastroesophageal reflux disease) K21.9 ; Insomnia G47.00 and COPD (chronic obstructive pulmonary disease) J44.[address] [address] Jun, [address] [address] Jun, [address] [address] May, Essential hypertension, ivis gn 401.1 ; Unspecified hypothyroidism 244.9 ; Insomnia, unspecified 780.52 ; Shortness of breath 786.05 ; Depression 311 ; COPD (chronic obstructive pulmonary disease) 496 ; GERD (gastroesophageal reflux disease) 530.81 and Diabetes 1.5, 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 [address] May, [address] [address] May, [address] [address] May, Shortness of breath 786.05 ; Essential hypertension, benign 401.1 ; Diabetes mellitus 250.00 ; Hyperlipidemia 272.4 ; Hypothyroid 244.9 ; Insomnia 780.52 and Cough 786.[address] [address] Apr, [address] [address] March, Shortness of breath 786.05 ; Nausea with vomiting 787.01 ; Essential hypertension, benign 401.1 ; Diabetes mellitus 250.00 ; Hyperlipidemia 272.4 and Hypothyroid 244.[address] [address] 14 Feb, 2015 [facility] [address] [id number] [address] [place] [address], [place] [address] Feb, [facility] [address] [id number] [address] [place] [address], [place] [address] Jan, [facility] [address] [id number] [address] [place] [address], [place] [address] Jan, [facility] [place] [facility] [address] [id number] [address] [place] [address], [place] [address] Jan, [facility] [address] [id number] [address] [place] [address], [place] [address] Jan, [facility] [address] [id number] [address] [place] [address], [place] [address] Jan, [facility] [address] [id number] [address] [place] [address], [place] [address] Jan, [facility] [address] [id number] [address] [place] [address], [place] [address] Jan, [facility] [address] [id number] [address] [place] [address], [place] [address] Jan, [facility] [address] [id number] [address] [place] [address], [place] [address] Jan, [facility] [address] [id number] [address] [place] [address], [place] [address] Jan, [facility] [place] [facility] [address] [id number] [address] [place] [address], [place] [address] Dec, [facility] [place] [facility] [address] [id number] [address] [place] [address], [place] [address] Dec, [facility] [place] [facility] [address] [id number] [address] [place] [address], [place] [address] Dec, [facility] [place] [facility] [address] [id number] [address] [place] [address], [place] [address] Dec, [facility] [place] [facility] [address] [id number] [address] [place] [address], [place] [address] Dec, 2014 [facility] [address] [id number] [address] [place] [address], [place] [address] Dec, 2014 [facility] [address] [id number] [address] [place] [address], [place] [address] Dec, 2014 [facility] [place] [facility] [address] [id number] [address] [place] [address], [place] [address] Dec, 2014 [facility] [address] [id number] [address] [place] [address], [place] [address] Dec, 2014 [facility] [address] [id number] [address] [place] [address], [place] [address] Dec, 2014 [facility] [address] [id number] [address] [place] [address], [place] [address] Oct, [facility] [address] [id number] [address] [place] [address], [place] [address] Oct, [facility] [address] [id number] [address] [place] [address], [place] [id number] Oct, [facility] [address] [id number] [address] [place] [address], [place] [id number] Oct, [facility] [address] [id number] [address] [place] [id number] Oct, [facility] [address] [id number] [address] [place] [id number] Oct, [facility] [address] [id number] [address] [place] [address], [place] [id number] Oct, [facility] [address] [id number] [address] [place] [address], [place] [id number] Oct, [facility] [address] [id number] [address] [place] [id number] Oct, [facility] [address] [id number] [address] [place] [address], [place] [id number] Oct, [facility] [address] [id number] [address] [place] [address], [place] [id number] Oct, [facility] [address] [id number] [address] [place] [address], [place] [id number] Oct, [facility] [address] [id number] [address] [place] [address], [place] [id number] Oct, [facility] [address] [id number] [address] [place] [address], [place] [id number] Oct, [facility] [address] [id number] [address] [place] [address], [place] [id number] Sep, [facility] [address] [id number] [address] [place] [address], [place] [id number] Sep, [facility] [address] [id number] [address] [place] [address], [place] [id number] Sep, [facility] [address] [id number] [address] [place] [address], [place] [id number] Sep, [facility] [address] [id number] [address] [place] [address], [place] [id number] Sep, [facility] [address] [id number] [address] [place] [address], [place] [id number] Sep, [facility] [address] [id number] [address] [place] [address], [place] [id number] Sep, [facility] [address] [id number] [address] [place] [address], [place] [id number] Sep, [facility] [address] [id number] [address] [place] [address], [place] [id number] Sep, [facility] [address] [id number] [address] [place] [address], [place] [id number] Aug, [facility] [facility] [address] [id number] [address] [place] [address], [place] [address] Aug, [facility] [address] [id number] [address] [place] [address], [place] [address] 17 Aug, 2013 [facility] [address] [id number] [address] [place] [address], [place] [address] 17 Aug, 2014 [facility] [address] [id number] [address] [place] [address], [place] [address] 16 Aug, 2013 [facility] [address] [id number] [address] [place] [address], [place] [address] Aug, [facility] [address] [id number] [address] [place] [address], [place] [address] Aug, [facility] [address] [id number] [address] [place] [address], [place] [address] Aug, [facility] [address] [id number] [address] [place] [address], [place] [address] Aug, [facility] [address] [id number] [address] [place] [address], [place] [address] 29 Jul, 2013 [facility] [address] [id number] [address] [place] [address], [place] [address] 29 Sep, 2013 [facility] [address] [id number] [address] [place] [address], [place] [address] 25 Sep, 2013 [facility] [address] [id number] [address] [place] [address], [place] [address] 25 Sep, 2013 [facility] [address] [id number] [address] [place] [address], [place] [address] 25 Sep, 2013 [facility] [address] [id number] [address] [place] [address], [place] [address] 25 Sep, 2013 [facility] [address] [id number] [address] [place] [address], [place] [address] 25 Jul, 2013 [facility] [address] [id number] [address] [place] [address], [place] [address] 25 Jul, 2013 [facility] [address] [id number] [address] [place] [address], [place] [address] Jul, [facility] [address] [id number] [facility] [place] [address] Jul, [facility] [address] [id number] [facility] [place] [address] Jun, [facility] [address] [id number] [facility] [place] [address] Jun, [facility] [address] [id number] [address] [place] [address], [place] [address] Jun, [facility] [address] [id number] [facility] [place] [address] Jun, [facility] [address] [id number] [address] [place] [address], [place] [address] Jun, [facility] [address] [id number] [address] [place] [address], [place] [address] Jun, [facility] [address] [id number] [address] [place] [address], [place] [address] Jun, [facility] [address] [id number] [address] [place] [address], [place] [address] Jun, [facility] [address] [id number] [address] [place] [address], [place] [address] Jun, [facility] [address] [id number] [address] [place] [address], [place] [address] Jun, [facility] [address] [id number] [address] [place] [address], [place] [address] Jun, [facility] [address] [id number] [address] [place] [address], [place] [address] Jun, [facility] [address] [id number] [address] [place] [address], [place] [address] May, [facility] [address] [id number] [address] [place] [address], [place] [address] May, [facility] [address] [id number] [facility] [place] [address] May, [facility] [address] [id number] [address] [place] [address], [place] [address] May, [facility] [address] [id number] [address] [place] [address], [place] [address] May, [facility] [address] [id number] [address] [place] [address], [place] [address] May, [facility] [address] [id number] [address] [place] [address], [place] [address] March, [facility] [address] [id number] [address] [place] [address], [place] [address] March, [facility] [address] [id number] [address] [place] [address], [place] [address] March, [facility] [address] [id number] [address] [place] [address], [place] [address] March, [facility] [address] [id number] [address] [place] [address], [place] [address] March, [facility] [address] [id number] [address] [place] [address], [place] [address] March, [facility] [address] [id number] [address] [place] [address], [place] [address] Feb, [facility] [address] [id number] [address] [place] [address], [place] [address] Feb, [facility] [address] [id number] [address] [place] [address], [place] [address] Feb, [facility] [address] [id number] [address] [place] [address], [place] [address] Feb, [facility] [address] [id number] [address] [place] [address], [place] [address] Jan, [facility] [address] [id number] [address] [place] [address], [place] [address] Jan, [facility] [address] [id number] [facility] [place] [address] Jan, [facility] [address] [id number] [facility] [place] [address] Jan, [facility] [address] [id number] [facility] [place] [address] Jan, [facility] [address] [id number] [address] [place] [address], [place] [address] Jan, [facility] [address] [id number] [address] [place] [address], [place] [address] Jan, [facility] [address] [id number] [address] [place] [address], [place] [address] Jan, [facility] [address] [id number] [address] [place] [address], [place] [address] Jan, [facility] [address] [id number] [address] [place] [address], [place] [address] Jan, [facility] [address] [id number] [address] [place] [address], [place] [address] Jan, [facility] [address] [id number] [address] [place] [address], [place] [address] Jan, [facility] [address] [id number] [address] [place] [address], [place] [address] Dec, [facility] [address] [id number] [address] [place] [address], [place] [address] Dec, [facility] [address] [id number] [address] [place] [address], [place] [address] Dec, [facility] [address] [id number] [address] [place] [address], [place] [address] Dec, [facility] [address] [id number] [address] [place] [address], [place] [address] Dec, [facility] [address] [id number] [address] [place] [id number] Dec, [facility] [address] [id number] [address] [place] [address], [place] [address] Nov, [facility] [address] [id number] [address] [place] [address], [place] [address] Nov, [facility] [address] [id number] [address] [place] [address], [place] [address] Oct, [facility] [address] [id number] [address] [place] [address], [place] [address] Oct, [facility] [address] [id number] [address] [place] [address], [place] [address] Oct, [facility] [address] [id number] [address] [place] [address], [place] [address] Oct, [facility] [address] [id number] [address] [place] [address], [place] [address] Oct, [facility] [address] [id number] [address] [place] [address], [place] [address] Oct, [facility] [address] [id number] [address] [place] [address], [place] [address] Sep, [facility] [address] [id number] [address] [place] [address], [place] [address] Sep, [facility] [address] [id number] [address] [place] [address], [place] [address] Sep, [facility] [address] [id number] [address] [place] [address], [place] [address] Sep, [facility] [address] [id number] [address] [place] [address], [place] [address] Aug, [facility] [address] [id number] [address] [place] [address], [place] [address] Aug, [facility] [address] [id number] [address] [place] [address] Aug, [facility] [address] [id number] [address] [place] [address], [place] [address] 17 Jul, 2013 [facility] [address] [id number] [address] [place] [address], [place] [address] 14 Jul, 2013 [facility] [address] [id number] [address] [place] [address], [place] [address] 04 Jul, 2013 [facility] [address] [id number] [address] [place] [address], [place] [address] Jun, [facility] [address] [id number] [address] [place] [address], [place] [address] Jun, [facility] [address] [id number] [address] [place] [address], [place] [address] Jun, [facility] [address] [id number] [address] [place] [address], [place] [address] Apr, [facility] [address] [id number] [address] [place] [address], [place] [address] Apr, [facility] [address] [id number] [address] [place] [address], [place] [address] March, [facility] [address] [id number] [address] [place] [address], [place] [address] March, [facility] [address] [id number] [address] [place] [address], [place] [address] March, [facility] [address] [id number] [address] [place] [address], [place] [address] March, [facility] [address] [id number] [address] [place] [address], [place] [address] Feb, [facility] [address] [id number] [address] [place] [address], [place] [address] Jan, [facility] [address] [id number] [address] [place] [address], [place] [address] Dec, [facility] [address] [id number] [address] [place] [address], [place] [address] 08 Dec, 2012 [facility] [address] [id number] [address] [place] [address], [place] [address] Dec, [facility] [address] [id number] [address] [place] [address], [place] [address] Nov, [facility] [address] [id number] [address] [place] [address], [place] [address] Oct, [facility] [address] [id number] [address] [place] [address], [place] [address] Oct, [facility] [address] [id number] [address] [place] [address], [place] [address] Sep, [facility] [address] [id number] [address] [place] [address], [place] [address] Sep, [facility] [address] [id number] [address] [place] [address], [place] [address] Sep, [facility] [address] [id number] [address] [place] [address], [place] [address] Sep, [facility] [address] [id number] [address] [place] [address], [place] [address] Sep, [facility] [address] [id number] [address] [place] [address], [place] [address] Sep, [facility] [address] [id number] [address] [place] [address], [place] [address] Sep, [facility] [address] [id number] [address] [place] [address], [place] [address] Aug, [facility] [address] [id number] [address] [place] [address], [place] [address] Aug, [facility] [address] [id number] [address] [place] [address], [place] [address] Aug, [facility] [address] [id number] [address] [place] [address], [place] [address] Aug, [facility] [address] [id number] [address] [place] [address], [place] [address] 08 Aug, 2012 [facility] [address] [id number] [address] [place] [address], [place] [address] 08 Aug, 2012 [facility] [address] [id number] [address] [place] [address], [place] [address] Aug, [facility] [address] [id number] [address] [place] [address], [place] [address] Aug, [facility] [address] [id number] [address] [place] [address], [place] [address] Jul, [facility] [address] [id number] [address] [place] [address], [place] [address] Jul, [facility] [address] [id number] [address] [place] [address], [place] [address] Jun, [facility] [address] [id number] [address] [place] [address], [place] [address] May, [facility] [address] [id number] [address] [place] [address], [place] [address] Apr, [facility] [address] [id number] [address] [place] [address], [place] [address] Apr, [facility] [address] [id number] [address] [place] [address], [place] [address] Apr, [facility] [address] [id number] [address] [place] [address], [place] [address] March, [facility] [address] [id number] [address] [place] [address], [place] [address] March, [facility] [address] [id number] [address] [place] [address], [place] [address] March, [facility] [address] [id number] [address] [place] [address], [place] [address] March, [facility] [address] [id number] [address] [place] [address], [place] [address] March, [facility] [address] [id number] [address] [place] [address], [place] [address] March, [facility] [address] [id number] [address] [place] [address], [place] [address] March, [facility] [address] [id number] [address] [place] [address], [place] [address] Jan, [facility] [address] [id number] [address] [place] [address], [place] [address] Jan, [facility] [address] [id number] [address] [place] [address], [place] [address] Jan, [facility] [address] [id number] [address] [place] [address], [place] [address] Jan, [facility] [address] [id number] [address] [place] [address], [place] [address] Jan, [facility] [address] [id number] [address] [place] [address], [place] [address] Dec, [facility] [address] [id number] [address] [place] [address], [place] [address] Dec, [facility] [address] [id number] [address] [place] [address], [place] [address] Nov, [facility] [address] [id number] [address] [place] [address], [place] [address] Nov, [facility] [address] [id number] [address] [place] [address], [place] [address] Nov, [facility] [address] [id number] [address] [place] [address], [place] [address] Nov, [facility] [address] [id number] [address] [place] [address], [place] [address] Oct, [facility] [address] [id number] [address] [place] [address], [place] [address] Oct, [facility] [address] [id number] [address] [place] [address], [place] [address] 14 Sep, 2011 [facility] [address] [id number] [address] [place] [address], [place] [address] 10 Sep, 2011 [facility] [address] [id number] [address] [place] [address], [place] [address] 10 Sep, 2011 [facility] [address] [id number] [address] [place] [address], [place] [address] 11 May, 2011 [facility] [address] [id number] [address] [place] [address], [place] [address] 20 Nov, 2010 [facility] [address] [id number] [address] [place] [address], [place] [address] 29 Oct, 2010 [facility] [address] [id number] [address] [place] [address], [place] [address] 14 Oct, 2010 [facility] [address] [id number] [address] [place] [address], [place] [address] 08 Oct, 2010 [facility] [address] [id number] [address] [place] [address], [place] [address] 15 Sep, 2010 [facility] [address] [id number] [address] [place] [address], [place] [address] 02 Sep, 2010 [facility] [address] [id number] [address] [place] [address], [place] [address] Aug, [facility] [address] [id number] [address] [place] [address], [place] [address] March, [facility] [address] [id number] [address] [place] [address], [place] [address] 17 Oct, 2009 [facility] [address] [id number] [address] [place] [address], [place] [address] Oct, [facility] [address] [id number] [address] [place] [address], [place] [address] Oct, [facility] [address] [id number] [address] [place] [address], [place] [id number] Oct, [facility] [address] [facility] [id number] [address] [place] [phone] Sep, [facility] [address] [facility] [id number] [address] [place] [id number] Sep, [facility] [address] [facility] [id number] [address] [place] [id number] Sep, [facility] [address] [facility] [id number] [address] [place] [id number] Aug, [facility] [address] [facility] [id number] [address] [place] [id number] Aug, [facility] [address] [facility] [id number] [address] [place] [id number] Aug, [facility] [address] [facility] [id number] [address] [place] [id number] Jan, IMMUNIZATIONS No Known Immunizations SOCIAL HISTORY Never Assessed REASON FOR VISIT BH/AT phone response PLAN OF CARE VITAL SIGNS MEDICATIONS No [...]
--- OUTSIDE RECORDS SUMMARY | 2020-06-13 16:22 | XMS REPORT ---
Author Author Jah PARKER Organization [facility] Address [address] [place] [address] Care Team Providers Care Implementation Engineer Name Role Phone PARKERSHAYLEE MckeonELE Unavailable PROBLEMS Type Condition ICD9-CM Code HVK97-[id number] Code Onset Dates Condition S tatus SNOMED Code Problem Type 2 diabetes mellitus with hyperglycemia E11.65 Active 88071183 Problem Pulmonary emphysema, unspecified emphysema type J4 3.9 Active 46413272 Problem Essential (primary) hypertension I10 Active 84969297 Problem Hypertriglyceridemia E78.1 Active 568688075 Problem Major depressive disorder, recurrent episode, moderate F33.1 Active 394203596 Problem Recurrent major depressive disorder, in partial remission F33.41 Active 47749876 Problem Current non-adherence to medical treatment Z91.19 Active 6451004 Problem Anxiety disorder, unspecified type F41.9 Active 807324331 Problem Chronic fatigue R53.82 Active 8422 9001 Problem Chronic pain G89.29 Active 0199162 1 Problem Neuropathy G62.9 Active 531807050 Problem Thrombocytosis D47.3 Active 91794 09 Problem Mixed hyperlipidemia E78.2 Active 770929214 Problem Gastroesophageal reflux disease with esophagitis K 21.0 Active 177341752 Problem Hypothyroid E03.9 Active 16059574 Problem Irritable bowel syndrome with diarrhea K58.0 Active 820163874 Problem Overactive bladder N32.81 Active 2 88923703 Problem [facility] current use of insulin Z79.4 Active [id number] ALLERGIES No Information ENCOUNTERS Encounter Location Date Diagnosis [facility] [address] [facility] [id number] [address] [place] [address] Jun, Type 2 diabetes mellitus wit h hyperglycemia E11.65 ; Neuropathy G62.9 ; Recurrent major depressive disorder, in partial remission F33.41 ; Chronic pain G89.29 and Hypertriglyceridemia E78.1 [facility] [address] [facility] [id number] [address] [place] [address] Jun, Hypothyroid E03.9 [facility] [address] [id number] [address] [place] [address] Jun, Major depressive disorder, r ecurrent episode, moderate F33.1 and Anxiety disorder, unspecified type F41.9 [facility] [address] [id number] [address] [place] [address] Jun, [place] [address] [facility] [id number] [address] [place] [address] Jun, Type 2 diabetes mellitus wit h hyperglycemia E11.65 ; 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 ; Recurrent major depressive disorder, in partial remission F33.41 ; Hypothyroid E03.9 ; Candidal dermatitis B37.2 and Weakness generalized R53.1 [place] [address] [facility] [id number] [address] [place] [address] May, [place] [address] [id number] [address] [place] [address] May, [place] [id number] [id number] [address] [place] [address] May, [place] [address] [facility] [id number] [address] [place] [address] May, Generalized abdominal pain R 10.84 and Candidal dermatitis B37.2 [place] [address] [facility] [id number] [address] [place] [address] May, [place] [address] [id number] [address] [place] [address] May, [place] [address] [facility] [id number] [address] [place] [address] May, Nodular radiologic density R 93.8 ; Weight loss, unintentional R63.4 and Pulmonary emphysema, unspecified emphysema type J43.9 [place] [address] [facility] [id number] [address] [place] [address] May, Chronic pain G89.29 [facility] [address] [id number] [address] [place] [address] 09 May, 2018 Syncope and collapse R55 ; C hronic fatigue R53.[address] lung screening R91.8 [facility] [address] [id number] [address] [place] [address] May, [facility] [address] [id number] [address] [place] [address] Apr, Chronic fatigue R53.82 ; Abn ormal chest CT R93.8 ; Elevated erythrocyte sedimentation rate R70.0 ; Hypothyroid E03.9 and Recurrent major depressive disorder, in partial remission F33.41 [facility] [address] [id number] [address] [place] [address] Apr, Hypothyroid E03.9 [facility] [address] [id number] [address] [place] [address] Apr, Depression F32.9 [facility] [address] [id number] [address] [place] [address] Apr, [facility] [address] [id number] [address] [place] [address] March, [facility] [address] [facility] [id number] [address] [place] [address] March, Hypothyroid E03.9 [facility] [address] [facility] [id number] [address] [place] [address] March, Diabetes mellitus E11.9 and Hypothyroid E03.9 [facility] [address] [id number] [address] [place] [address] March, Diabetes mellitus E11.9 [facility] [address] [facility] [id number] [address] [place] [address] March, Hypothyroid E03.9 and Elevat ed liver enzymes R74.8 [facility] [address] [facility] [id number] [address] [place] [address] March, Type 2 diabetes mellitus wit h [...] disorder, in partial remission F33.41 [place] [id number] [place] [address] Feb, Chronic pain G89.29 [place] [id number] [place] [address] Feb, Type 2 diabetes mellitus wit h hyperglycemia E11.65 and Skin lesion of scalp L98.9 [place] [id number] [address] [place] [address] Feb, [place] [address] [address] Jan, Type 2 diabetes mellitus wit h hyperglycemia E11.65 ; 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 ; Essential (primary) hypertension I10 ; Pulmonary emphysema, unspecified emphysema type J43.9 ; Chronic pain G89.29 ; Controlled substance agreement signed Z79.899 ; Hypothyroid E03.9 ; Neuropathy G62.9 ; Gastroesophageal reflux disease with esophagitis K21.0 ; Overactive bladder N32.81 ; Depression F32.9 and Irritable bowel syndrome with diarrhea K58.0 [place] [address] [place] [id number] [address] [place] [address] Jan, [place] [address] [place] [id number] [address] [place] [address] Jan, Controlled substance agreeme nt signed Z79.899 [place] [address] [place] [id number] [address] [place] [address] Dec, Type 2 diabetes mellitus wit h hyperglycemia E11.65 ; Controlled substance agreement signed Z79.899 ; 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 ; Essential (primary) hypertension I10 ; Hypothyroid E03.9 ; Neuropathy G62.9 ; Depression F32.9 ; Mixed hyperlipidemia E78.2 ; Irritable bowel syndrome with diarrhea K58.0 ; Gastroesophageal reflux disease with esophagitis K21.0 ; Thrombocytosis D47.3 ; Current non-adherence to medical treatment Z91.19 and Overweight (BMI 25.0-29.9) E66.3 [place] [address] [facility] [id number] [address] [place] [address] 02 Dec, 2017 Controlled substance agreeme nt signed Z79.899 [place] [address] [place] [id number] [address] [place] [address] Nov, Type 2 diabetes mellitus wit h hyperglycemia E11.65 and Current non- adherence to medical treatment Z91.19 [place] [address] [facility] [id number] [address] [place] [address] Nov, [place] [address] [facility] [id number] [address] [place] [address] Nov, Chronic pain G89.29 [place] [address] [place] [id number] [address] [place] [address] Nov, [place] [address] [place] [id number] [address] [place] [address] Nov, Hypothyroid E03.9 [place] [address] [facility] [id number] [address] [place] [address] Nov, Hypothyroid E03.9 [place] [address] [facility] [id number] [address] [place] [address] Nov, Pulmonary emphysema, unspeci fied emphysema type J43.9 and Irritable bowel syndrome with diarrhea K58.0 [place] [address] [facility] [id number] [address] [place] [address] Oct, [place] [address] [place] [id number] [address] [place] [address] Oct, [place] [id number] [place] [address] Oct, [place] [address] [facility] [id number] [address] [place] [address] Oct, [place] [address] [place] [id number] [address] [place] [address] Oct, Chronic pain G89.29 [place] [address] [address] Oct, Diabetes mellitus E11.9 ; De pression F32.9 ; Mixed hyperlipidemia E78.2 ; Hypotension, unspecified hypotension type I95.9 ; Pulmonary emphysema, unspecified emphysema type J43.9 and Weight loss, unintentional R63.4 [place] [address] [address] Oct, Chronic pain G89.29 [place] [address] [address] Sep, Chronic pain G89.29 [place] [address] [address] Sep, Hypothyroid E03.9 and Diabet es mellitus E11.9 [place] [address] [address] Aug, Type 2 diabetes mellitus wit h hyperglycemia E11.65 ; 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 ; Essential (primary) hypertension I10 ; Hypothyroid E03.9 ; Neuropathy G62.9 ; Chronic pain G89.29 ; Mixed hy perlipidemia E78.2 and Encounter for immunization Z23 [place] [address] [place] [id number] [address] [place] [address] Aug, Chronic pain G89.29 [place] [address] [place] [id number] [address] [place] [address] Aug, Overactive bladder N32.81 ; Diabetes mellitus E11.9 and Chronic pain G89.29 [place] [address] [place] [id number] [address] Jul, [facility] [address] [facility] [id number] [address] [place] [address] Jun, [facility] [address] [facility] [id number] [address] [place] [address] Jun, [facility] [address] [facility] [id number] [address] [place] [address] Jun, Hypothyroid E03.9 [facility] [address] [facility] [id number] [address] [place] [address] Jun, Diabetes mellitus E11.9 ; Hy pothyroid E03.9 ; Neuropathy G62.9 ; Chronic pain G89.29 and Neck mass R22.1 [facility] [address] [facility] [id number] [address] [place] [address] Apr, [facility] [address] [facility] [id number] [address] [place] [address] Apr, Acute cystitis without hemat uria N30.00 [facility] [address] [facility] [id number] [address] [place] [address] March, [facility] [address] [facility] [id number] [address] [place] [address] March, [facility] [address] [facility] [id number] [address] [place] [address] March, Near syncope R55 [facility] [address] [facility] [id number] [address] [place] [address] Feb, [facility] [address] [facility] [id number] [address] [place] [address] Feb, Chronic pain G89.29 [facility] [address] [facility] [id number] [address] [place] [address] Feb, [facility] [address] [facility] [id number] [address] [place] [address] Feb, [facility] [address] [place] [id number] [address] [place] [address] Jan, Chronic pain G89.29 [facility] [address] [address] Jan, [facility] [address] [address] 16 Jan, 2017 [facility] [address] [address] 14 Jan, 2017 Diabetes mellitus E11.9 ; Hy pothyroid E03.9 ; GERD (gastroesophageal reflux disease) K21.9 ; Insomnia G47.00 ; Functional diarrhea K59.1 ; Neuropathy G62.9 ; Depression F32.9 ; Chronic pain G89.29 ; Irritable bowel syndrome with diarrhea K58.0 ; Overactive bladder N32.81 ; Mixed hyperlipidemia E78.2 and Bronchitis J40 [facility] [address] [address] Dec, [facility] [address] [place] [id number] [address] [place] [address] Dec, [facility] [address] [address] Dec, [facility] [address] [place] [id number] [address] [place] [address] Dec, [facility] [address] [place] [id number] [address] [place] [address] Dec, Chronic pain G89.29 [facility] [address] [place] [id number] [address] [place] [address] Dec, [facility] [address] [place] [id number] [address] [place] [address] Dec, [facility] [address] [place] [id number] [address] [place] [address] Dec, Type 2 diabetes mellitus wit h foot ulcer E11.621 [place] [address] [place] [id number] [address] [place] [address] 17 Dec, 2016 Type 2 diabetes mellitus wit h foot ulcer E11.621 [place] [address] [place] [id number] [place] [address] 14 Dec, 2016 HTN (hypertension) I10 ; Dep ression F32.9 ; Type 2 diabetes mellitus with foot ulcer E11.621 ; Functional diarrhea K59.1 ; Irritable bowel syndrome with diarrhea K58.0 ; Chronic pain G89.29 ; Insomnia G47.00 ; Overactive bladder N32.81 ; Mixed hyperlipidemia E78.2 ; Gastroesophageal reflux disease with esophagitis K21.0 and Acquired hypothyroidism E03.9 [place] [address] [address] Nov, [place] [address] [address] Oct, [place] [address] [address] Oct, [place] [address] [address] Oct, [place] [address] [address] Sep, Functional diarrhea K59.1 ; HTN (hypertension) I10 ; Diabetes mellitus E11.9 ; Depression F32.9 ; Overactive bladder N32.81 ; Mixed hyperlipidemia E78.2 ; Gastroesophageal reflux disease without esophagitis K21.9 ; Chronic pain G89.29 ; Insomnia G47.00 and Acquired hypothyroidism E03.9 [place] [address] [address] Sep, [place] [address] [address] Aug, Encounter for immunization Z 23 [place] [address] [address] Aug, [place] [address] [address] Jul, [place] [address] [address] Jun, Type 2 diabetes mellitus wit hout complications E11.9 ; HTN (hypertension) I10 ; Hypothyroid E03.9 ; Neuropathy G62.9 ; Depression F32.9 ; Chronic pain G89.29 ; GERD (gastroesophageal reflux disease) K21.9 ; Insomnia G47.00 ; Overactive bladder N32.81 ; Mixed hyperlipidemia E78.2 ; Diarrhea of infectious origin A09 and Environmental allergies Z91.09 [place] [address] [address] Apr, [place] [address] [address] March, Hypothyroidism, unspecified E03.9 and Mixed hyperlipidemia E78.2 [place] [address] [address] March, Diabetes mellitus E11.9 ; HT N (hypertension) I10 ; Hypothyroid E03.9 ; Depression F32.9 ; Overactive bladder N32.81 ; Other chronic pain G89.29 ; Lumbago with sciatica, unspecified side M54.40 ; Environmental allergies Z91.09 and Gastroesophageal reflux disease, esophagitis presence not specified K21.9 [place] [address] [address] March, [place] [address] [address] Jan, HTN (hypertension) I10 ; Hyp othyroid E03.9 ; Neuropathy G62.9 ; Diabetes mellitus E11.9 ; Chronic pain G89.29 ; GERD (gastroesophageal reflux disease) K21.9 ; Overactive bladder N32.81 and Depression F32.9 [place] [address] [address] Dec, Ear pain, left H92.02 ; HTN (hypertension) I10 ; Hypothyroid E03.9 ; Neuropathy G62.9 ; Diabetes mellitus E11.9 ; Depression F32.9 ; GERD (gastroesophageal reflux disease) K21.9 ; Insomnia G47.00 and Overactive bladder N32.81 [place] [address] [place] [address] Nov, Overactive bladder N32.81 an d Chronic pain G89.29 [place] [address] [place] [id number] [place] [address] Nov, Kidney failure N19 [place] [address] [place] [id number] [place] [address] Nov, [place] [address] [place] [id number] [address] [place] [address] Nov, [place] [address] [address] Nov, Diabetes mellitus E11.9 ; De pression F32.9 ; Chronic pain G89.29 ; GERD (gastroesophageal reflux disease) K21.9 ; Insomnia G47.00 ; HTN (hypertension) I10 ; Hypothyroid E03.9 ; COPD (chronic obstructive pulmonary disease) J44.9 ; Bladder incontinence R32 and Incontinence R32 [place] [address] [place] [address] Sep, Type 2 diabetes mellitus wit h foot ulcer E11.621 and Chromosomal abnormality, 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 [place] [address] [place] [id number] [address] [place] [address] Sep, [place] [address] [place] [id number] [place] [address] Aug, [place] [address] [place] [id number] [address] [place] [address] Aug, [place] [address] [place] [id number] [place] [address] Aug, HTN (hypertension) I10 ; Enc ounter for immunization Z23 ; Hypothyroid E03.9 ; Neuropathy G62.9 ; Diabetes mellitus E11.9 ; Depression F32.9 ; Chronic pain G89.29 ; GERD (gastroesophageal reflux disease) K21.9 ; Insomnia G47.00 and COPD (chronic obstructive pulmonary disease) J44.[address] [address] Jun, [address] [address] Jun, [address] [address] May, Essential hypertension, ivis gn 401.1 ; Unspecified hypothyroidism 244.9 ; Insomnia, unspecified 780.52 ; Shortness of breath 786.05 ; Depression 311 ; COPD (chronic obstructive pulmonary disease) 496 ; GERD (gastroesophageal reflux disease) 530.81 and Diabetes 1.5, 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 [address] May, [address] [address] May, [address] [address] May, Shortness of breath 786.05 ; Essential hypertension, benign 401.1 ; Diabetes mellitus 250.00 ; Hyperlipidemia 272.4 ; Hypothyroid 244.9 ; Insomnia 780.52 and Cough 786.[address] [address] Apr, [address] [address] March, Shortness of breath 786.05 ; Nausea with vomiting 787.01 ; Essential hypertension, benign 401.1 ; Diabetes mellitus 250.00 ; Hyperlipidemia 272.4 and Hypothyroid 244.[address] [address] 14 Feb, 2015 [facility] [address] [id number] [address] [place] [address], [place] [address] Feb, [facility] [address] [id number] [address] [place] [address], [place] [address] Jan, [facility] [address] [id number] [address] [place] [address], [place] [address] Jan, [facility] [place] [facility] [address] [id number] [address] [place] [address], [place] [address] Jan, [facility] [address] [id number] [address] [place] [address], [place] [address] Jan, [facility] [address] [id number] [address] [place] [address], [place] [address] Jan, [facility] [address] [id number] [address] [place] [address], [place] [address] Jan, [facility] [address] [id number] [address] [place] [address], [place] [address] Jan, [facility] [address] [id number] [address] [place] [address], [place] [address] Jan, [facility] [address] [id number] [address] [place] [address], [place] [address] Jan, [facility] [address] [id number] [address] [place] [address], [place] [address] Jan, [facility] [place] [facility] [address] [id number] [address] [place] [address], [place] [address] Dec, [facility] [place] [facility] [address] [id number] [address] [place] [address], [place] [address] Dec, [facility] [place] [facility] [address] [id number] [address] [place] [address], [place] [address] Dec, [facility] [place] [facility] [address] [id number] [address] [place] [address], [place] [address] Dec, [facility] [place] [facility] [address] [id number] [address] [place] [address], [place] [address] Dec, 2014 [facility] [address] [id number] [address] [place] [address], [place] [address] Dec, 2014 [facility] [address] [id number] [address] [place] [address], [place] [address] Dec, 2014 [facility] [place] [facility] [address] [id number] [address] [place] [address], [place] [address] Dec, 2014 [facility] [address] [id number] [address] [place] [address], [place] [address] Dec, 2014 [facility] [address] [id number] [address] [place] [address], [place] [address] Dec, 2014 [facility] [address] [id number] [address] [place] [address], [place] [address] Oct, [facility] [address] [id number] [address] [place] [address], [place] [address] Oct, [facility] [address] [id number] [address] [place] [address], [place] [address] Oct, [facility] [address] [id number] [address] [place] [address], [place] [address] Oct, [facility] [address] [id number] [address] [place] [address] Oct, [facility] [place] [facility] [address] [id number] [address] [place] [address] Oct, [facility] [place] [facility] [address] [id number] [address] [place] [address], [place] [address] Oct, [facility] [place] [facility] [address] [id number] [address] [place] [address], [place] [address] Oct, [facility] [address] [id number] [address] [place] [id number] Oct, [facility] [address] [id number] [address] [place] [address], [place] [address] Oct, [facility] [address] [id number] [address] [place] [address], [place] [address] Oct, [facility] [address] [id number] [address] [place] [address], [place] [address] Oct, [facility] [address] [id number] [address] [place] [address], [place] [address] Oct, [facility] [address] [id number] [address] [place] [address], [place] [address] Oct, [facility] [address] [id number] [address] [place] [address], [place] [address] Sep, [facility] [address] [id number] [address] [place] [address], [place] [address] Sep, [facility] [address] [id number] [address] [place] [address], [place] [address] Sep, [facility] [address] [id number] [address] [place] [address], [place] [address] Sep, [facility] [address] [id number] [address] [place] [address], [place] [address] Sep, [facility] [address] [id number] [address] [place] [address], [place] [address] Sep, [facility] [address] [id number] [address] [place] [address], [place] [address] Sep, [facility] [address] [id number] [address] [place] [address], [place] [address] Sep, [facility] [address] [id number] [address] [place] [address], [place] [address] Sep, [facility] [address] [id number] [address] [place] [address], [place] [address] Aug, [facility] [address] [id number] [address] [place] [address], [place] [address] Aug, [facility] [address] [id number] [address] [place] [address], [place] [address] 17 Aug, 2013 [facility] [address] [id number] [address] [place] [address], [place] [address] 17 Aug, 2014 [facility] [address] [id number] [address] [place] [address], [place] [address] 16 Aug, 2013 [facility] [address] [id number] [address] [place] [address], [place] [address] Aug, [facility] [address] [id number] [address] [place] [address], [place] [address] Aug, [facility] [address] [id number] [address] [place] [address], [place] [address] Aug, [facility] [address] [id number] [address] [place] [address], [place] [address] Aug, [facility] [address] [id number] [address] [place] [address], [place] [address] 29 Jul, 2013 [facility] [address] [id number] [address] [place] [address], [place] [address] 29 Sep, 2013 [facility] [address] [id number] [address] [place] [address], [place] [address] 25 Sep, 2013 [facility] [address] [id number] [address] [place] [address], [place] [address] 25 Sep, 2013 [facility] [address] [id number] [address] [place] [address], [place] [address] 25 Sep, 2013 [facility] [address] [id number] [address] [place] [address], [place] [address] 25 Sep, 2013 [facility] [address] [id number] [address] [place] [address], [place] [address] 25 Jul, 2013 [facility] [address] [id number] [address] [place] [address], [place] [address] 25 Jul, 2013 [facility] [address] [id number] [address] [place] [address], [place] [address] Jul, [facility] [address] [id number] [facility] [place] [address] Jul, [facility] [address] [id number] [facility] [place] [address] Jun, [facility] [address] [id number] [facility] [place] [address] Jun, [facility] [address] [id number] [address] [place] [address], [place] [address] Jun, [facility] [address] [id number] [facility] [place] [address] Jun, [facility] [address] [id number] [address] [place] [address], [place] [address] Jun, [facility] [address] [id number] [address] [place] [address], [place] [address] Jun, [facility] [address] [id number] [address] [place] [address], [place] [address] Jun, [facility] [address] [id number] [address] [place] [address], [place] [address] Jun, [facility] [address] [id number] [address] [place] [address], [place] [address] Jun, [facility] [address] [id number] [address] [place] [address], [place] [address] Jun, [facility] [address] [id number] [address] [place] [address], [place] [address] Jun, [facility] [address] [id number] [address] [place] [address], [place] [address] Jun, [facility] [address] [id number] [address] [place] [address], [place] [address] May, [facility] [address] [id number] [address] [place] [address], [place] [address] May, [facility] [address] [id number] [facility] [place] [address] May, [facility] [address] [id number] [address] [place] [address], [place] [address] May, [facility] [address] [id number] [address] [place] [address], [place] [address] May, [facility] [address] [id number] [address] [place] [address], [place] [address] May, [facility] [address] [id number] [address] [place] [address], [place] [address] March, [facility] [address] [id number] [address] [place] [address], [place] [address] March, [facility] [address] [id number] [address] [place] [address], [place] [address] March, [facility] [address] [id number] [address] [place] [address], [place] [address] March, [facility] [address] [id number] [address] [place] [address], [place] [address] March, [facility] [address] [id number] [address] [place] [address], [place] [address] March, [facility] [address] [id number] [address] [place] [address], [place] [address] Feb, [facility] [address] [id number] [address] [place] [address], [place] [address] Feb, [facility] [address] [id number] [address] [place] [address], [place] [address] Feb, [facility] [address] [id number] [address] [place] [address], [place] [address] Feb, [facility] [address] [id number] [address] [place] [address], [place] [address] Jan, [facility] [address] [id number] [address] [place] [address], [place] [address] Jan, [facility] [address] [id number] [facility] [place] [address] Jan, [facility] [address] [id number] [facility] [place] [address] Jan, [facility] [address] [id number] [facility] [place] [address] Jan, [facility] [address] [id number] [address] [place] [address], [place] [address] Jan, [facility] [address] [id number] [address] [place] [address], [place] [address] Jan, [facility] [address] [id number] [address] [place] [address], [place] [address] Jan, [facility] [address] [id number] [address] [place] [address], [place] [address] Jan, [facility] [address] [id number] [address] [place] [address], [place] [address] Jan, [facility] [address] [id number] [address] [place] [address], [place] [address] Jan, [facility] [address] [id number] [address] [place] [address], [place] [address] Jan, [facility] [address] [id number] [address] [place] [address], [place] [address] Dec, [facility] [address] [id number] [address] [place] [address], [place] [address] Dec, [facility] [address] [id number] [address] [place] [address], [place] [address] Dec, [facility] [address] [id number] [address] [place] [address], [place] [address] Dec, [facility] [address] [id number] [address] [place] [address], [place] [address] Dec, [facility] [address] [id number] [address] [place] [address] Dec, [facility] [place] [address] [id number] [address] [place] [address], [place] [address] Nov, [facility] [address] [id number] [address] [place] [address], [place] [address] Nov, [facility] [address] [id number] [address] [place] [address], [place] [address] Oct, [facility] [address] [id number] [address] [place] [address], [place] [address] Oct, [facility] [address] [id number] [address] [place] [address], [place] [address] Oct, [facility] [address] [id number] [address] [place] [address], [place] [address] Oct, [facility] [place] [address] [id number] [address] [place] [address], [place] [address] Oct, [facility] [address] [id number] [address] [place] [address], [place] [address] Oct, [facility] [address] [id number] [address] [place] [address], [place] [address] Sep, [facility] [place] [address] [id number] [address] [place] [address], [place] [address] Sep, [facility] [address] [id number] [address] [place] [address], [place] [address] Sep, [facility] [address] [id number] [address] [place] [address], [place] [address] Sep, [facility] [address] [id number] [address] [place] [address], [place] [address] Aug, [facility] [address] [id number] [address] [place] [address], [place] [address] Aug, [facility] [address] [id number] [address] [place] [address] Aug, [facility] [address] [id number] [address] [place] [address], [place] [address] 17 Jul, 2013 [facility] [address] [id number] [address] [place] [address], [place] [address] 14 Jul, 2013 [facility] [address] [id number] [address] [place] [address], [place] [address] 04 Jul, 2013 [facility] [address] [id number] [address] [place] [address], [place] [address] Jun, [facility] [address] [id number] [address] [place] [address], [place] [address] Jun, [facility] [address] [id number] [address] [place] [address], [place] [address] Jun, [facility] [address] [id number] [address] [place] [address], [place] [address] Apr, [facility] [address] [id number] [address] [place] [address], [place] [address] Apr, [facility] [place] [address] [id number] [address] [place] [address], [place] [address] March, [facility] [address] [id number] [address] [place] [address], [place] [address] March, [facility] [address] [id number] [address] [place] [address], [place] [address] March, [facility] [place] [address] [id number] [address] [place] [address], [place] [address] March, [facility] [address] [id number] [address] [place] [address], [place] [address] Feb, [facility] [address] [id number] [address] [place] [address], [place] [address] Jan, [facility] [address] [id number] [address] [place] [address], [place] [address] Dec, [facility] [address] [id number] [address] [place] [address], [place] [address] 08 Dec, 2012 [facility] [address] [id number] [address] [place] [address], [place] [address] Dec, [facility] [address] [id number] [address] [place] [address], [place] [address] Nov, [facility] [address] [id number] [address] [place] [address], [place] [address] Oct, [facility] [address] [id number] [address] [place] [address], [place] [address] Oct, [facility] [address] [id number] [address] [place] [address], [place] [address] Sep, [facility] [address] [id number] [address] [place] [address], [place] [address] Sep, [facility] [address] [id number] [address] [place] [address], [place] [address] Sep, [facility] [address] [id number] [address] [place] [address], [place] [address] Sep, [facility] [address] [id number] [address] [place] [address], [place] [address] Sep, [facility] [address] [id number] [address] [place] [address], [place] [address] Sep, [facility] [address] [id number] [address] [place] [address], [place] [address] Sep, [facility] [address] [id number] [address] [place] [address], [place] [address] Aug, [facility] [address] [id number] [address] [place] [address], [place] [address] Aug, [facility] [address] [id number] [address] [place] [address], [place] [address] Aug, [facility] [address] [id number] [address] [place] [address], [place] [address] Aug, [facility] [address] [id number] [address] [place] [address], [place] [address] 08 Aug, 2012 [facility] [address] [id number] [address] [place] [address], [place] [address] 08 Aug, 2012 [facility] [address] [id number] [address] [place] [address], [place] [address] Aug, [facility] [address] [id number] [address] [place] [address], [place] [address] Aug, [facility] [address] [id number] [address] [place] [address], [place] [address] Jul, [facility] [address] [id number] [address] [place] [address], [place] [address] Jul, [facility] [address] [id number] [address] [place] [address], [place] [address] Jun, [facility] [address] [id number] [address] [place] [address], [place] [address] May, [facility] [address] [id number] [address] [place] [address], [place] [address] Apr, [facility] [address] [id number] [address] [place] [address], [place] [address] Apr, [facility] [place] [address] [id number] [address] [place] [address], [place] [address] Apr, [facility] [address] [id number] [address] [place] [address], [place] [address] March, [facility] [address] [id number] [address] [place] [address], [place] [address] March, [facility] [address] [id number] [address] [place] [address], [place] [address] March, [facility] [address] [id number] [address] [place] [address], [place] [address] March, [facility] [address] [id number] [address] [place] [address], [place] [address] March, [facility] [place] [address] [id number] [address] [place] [address], [place] [address] March, [facility] [address] [id number] [address] [place] [address], [place] [address] March, [facility] [address] [id number] [address] [place] [address], [place] [address] Jan, [facility] [address] [id number] [address] [place] [address], [place] [address] Jan, [facility] [address] [id number] [address] [place] [address], [place] [address] Jan, [facility] [address] [id number] [address] [place] [address], [place] [address] Jan, [facility] [address] [id number] [address] [place] [address], [place] [address] Jan, [facility] [address] [id number] [address] [place] [address], [place] [address] Dec, [facility] [address] [id number] [address] [place] [address], [place] [address] Dec, [facility] [place] [address] [id number] [address] [place] [address], [place] [address] Nov, [facility] [place] [address] [id number] [address] [place] [address], [place] [address] Nov, [facility] [address] [id number] [address] [place] [address], [place] [address] Nov, [facility] [address] [id number] [address] [place] [address], [place] [address] Nov, [facility] [address] [id number] [address] [place] [address], [place] [address] Oct, [facility] [address] [id number] [address] [place] [address], [place] [address] Oct, [facility] [address] [id number] [address] [place] [address], [place] [address] 14 Sep, 2011 [facility] [address] [id number] [address] [place] [address], [place] [address] 10 Sep, 2011 [facility] [address] [id number] [address] [place] [address], [place] [address] 10 Sep, 2011 [facility] [address] [id number] [address] [place] [address], [place] [address] 11 May, 2011 [facility] [address] [id number] [address] [place] [address], [place] [address] 20 Nov, 2010 [facility] [address] [id number] [address] [place] [address], [place] [address] 29 Oct, 2010 [facility] [address] [id number] [address] [place] [address], [place] [address] 14 Oct, 2010 [facility] [address] [id number] [address] [place] [address], [place] [address] 08 Oct, 2010 [facility] [address] [id number] [address] [place] [address], [place] [address] 15 Sep, 2010 [facility] [address] [id number] [address] [place] [address], [place] [address] 02 Sep, 2010 [facility] [address] [id number] [address] [place] [address], [place] [address] Aug, [facility] [address] [id number] [address] [place] [address], [place] [address] March, [facility] [address] [id number] [address] [place] [address], [place] [address] 17 Oct, 2009 [facility] [address] [id number] [address] [place] [address], [place] [address] Oct, [facility] [address] [id number] [address] [place] [address], [place] [address] Oct, [facility] [address] [id number] [address] [place] [address], [place] [address] Oct, [facility] [address] [id number] [address] [place] [id number] Sep, [facility] [address] [facility] [id number] [address] [place] [id number] Sep, [facility] [address] [facility] [id number] [address] [place] [id number] Sep, [facility] [address] [facility] [id number] [address] [place] [id number] Aug, [facility] [address] [facility] [id number] [address] [place] [id number] Aug, [facility] [address] [facility] [id number] [address] [place] [phone] Aug, [facility] [address] [facility] [id number] [address] [place] [phone] Jan, IMMUNIZATIONS No Known Immunizations SOCIAL HISTORY Never Assessed REASON FOR VISIT Prior Authorization Deneid PLAN OF CARE VITAL SIGNS MEDICATIONS No [...]
--- OUTSIDE RECORDS SUMMARY | 2020-06-13 16:22 | XMS REPORT ---
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 Name Role Phone PARKERSHAYLEE MckeonELE Unavailable PROBLEMS Type Condition ICD9-CM Code AXB67-NA Code Onset Dates Condition S tatus SNOMED Code Problem Type 2 diabetes mellitus with hyperglycemia E11.65 Active 28484426 Problem Pulmonary emphysema, unspecified emphysema type J4 3.9 Active 72105304 Problem Essential (primary) hypertension I10 Active 99069790 Problem Hypertriglyceridemia E78.1 Active 971045395 Problem Major depressive disorder, recurrent episode, moderate F33.1 Active 058820183 Problem Recurrent major depressive disorder, in partial remission F33.41 Active 47920647 Problem Current non-adherence to medical treatment Z91.19 Active 1867430 Problem Anxiety disorder, unspecified type F41.9 Active 041322110 Problem Chronic fatigue R53.82 Active 8422 9001 Problem Chronic pain G89.29 Active 7993784 1 Problem Neuropathy G62.9 Active 786189396 Problem Thrombocytosis D47.3 Active 54746 09 Problem Mixed hyperlipidemia E78.2 Active 804443139 Problem Gastroesophageal reflux disease with esophagitis K 21.0 Active 310590925 Problem Hypothyroid E03.9 Active 23599179 Problem Irritable bowel syndrome with diarrhea K58.0 Active 190173647 Problem Overactive bladder N32.81 Active 2 81593831 Problem group home current use of insulin Z79.4 Active [id number] ALLERGIES No Information ENCOUNTERS Encounter Location Date Diagnosis [facility] [address] [facility] [id number] [address] [place] [address] Jun, Type 2 diabetes mellitus wit h hyperglycemia E11.65 ; Neuropathy G62.9 ; Recurrent major depressive disorder, in partial remission F33.41 ; Chronic pain G89.29 and Hypertriglyceridemia E78.1 [facility] [address] [id number] [address] [place] [address] Jun, Hypothyroid E03.9 [facility] [address] [id number] [address] [place] [address] Jun, Major depressive disorder, r ecurrent episode, moderate F33.1 and Anxiety disorder, unspecified type F41.9 [facility] [address] [id number] [address] [place] [address] Jun, [place] [address] [facility] [id number] [address] [place] [address] Jun, Type 2 diabetes mellitus wit h hyperglycemia E11.65 ; 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 ; Recurrent major depressive disorder, in partial remission F33.41 ; Hypothyroid E03.9 ; Candidal dermatitis B37.2 and Weakness generalized R53.1 [place] [address] [facility] [id number] [address] [place] [address] May, [place] [address] [id number] [address] [place] [address] May, [place] [address] [id number] [address] [place] [address] May, [place] [address] [id number] [address] [place] [address] May, Generalized abdominal pain R 10.84 and Candidal dermatitis B37.2 [place] [address] [facility] [id number] [address] [place] [address] May, [place] [address] [id number] [address] [place] [address] May, [place] [address] [id number] [address] [place] [address] May, Nodular radiologic density R 93.8 ; Weight loss, unintentional R63.4 and Pulmonary emphysema, unspecified emphysema type J43.9 [place] [address] [facility] [id number] [address] [place] [address] May, Chronic pain G89.29 [facility] [address] [id number] [address] [place] [address] 09 May, 2018 Syncope and collapse R55 ; C hronic fatigue R53.[address] lung screening R91.8 [facility] [address] [id number] [address] [place] [address] May, [facility] [address] [id number] [address] [place] [address] Apr, Chronic fatigue R53.82 ; Abn ormal chest CT R93.8 ; Elevated erythrocyte sedimentation rate R70.0 ; Hypothyroid E03.9 and Recurrent major depressive disorder, in partial remission F33.41 [facility] [address] [id number] [address] [place] [address] Apr, Hypothyroid E03.9 [facility] [address] [id number] [address] [place] [address] Apr, Depression F32.9 [facility] [address] [id number] [address] [place] [address] Apr, [facility] [address] [id number] [address] [place] [address] March, [facility] [address] [id number] [address] [place] [address] March, Hypothyroid E03.9 [facility] [address] [facility] [id number] [address] [place] [address] March, Diabetes mellitus E11.9 and Hypothyroid E03.9 [facility] [address] [id number] [address] [place] [address] March, Diabetes mellitus E11.9 [facility] [address] [id number] [address] [place] [address] March, Hypothyroid E03.9 and Elevat ed liver enzymes R74.8 [facility] [address] [id number] [address] [place] [address] March, Type 2 diabetes mellitus wit h [...] major depressive disorder, in partial remission F33.41 [place] [id number] [place] [address] Feb, Chronic pain G89.29 [place] [id number] [place] [address] Feb, Type 2 diabetes mellitus wit h hyperglycemia E11.65 and Skin lesion of scalp L98.9 [place] [id number] [address] [place] [address] Feb, [place] [address] [address] Jan, Type 2 diabetes mellitus wit h [...] and Irritable bowel syndrome with diarrhea K58.0 [place] [address] [place] [id number] [address] [place] [address] Jan, [place] [address] [place] [id number] [address] [place] [address] Jan, Controlled substance agreeme nt signed Z79.899 [place] [address] [place] [id number] [address] [place] [address] Dec, Type 2 diabetes mellitus wit h hyperglycemia E11.65 ; Controlled substance agreement signed Z79.899 ; 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 ; Essential (primary) hypertension I10 ; Hypothyroid E03.9 ; Neuropathy G62.9 ; Depression F32.9 ; Mixed hyperlipidemia E78.2 ; Irritable bowel syndrome with diarrhea K58.0 ; Gastroesophageal reflux disease with esophagitis K21.0 ; Thrombocytosis D47.3 ; Current non-adherence to medical treatment Z91.19 and Overweight (BMI 25.0-29.9) E66.3 [place] [address] [id number] [address] [place] [address] 02 Dec, 2017 Controlled substance agreeme nt signed Z79.899 [place] [address] [place] [id number] [address] [place] [address] Nov, Type 2 diabetes mellitus wit h hyperglycemia E11.65 and Current non- adherence to medical treatment Z91.19 [place] [address] [id number] [address] [place] [address] Nov, [place] [address] [id number] [address] [place] [address] Nov, Chronic pain G89.29 [place] [address] [place] [id number] [address] [place] [address] Nov, [place] [address] [place] [id number] [address] [place] [address] Nov, Hypothyroid E03.9 [place] [address] [id number] [address] [place] [address] Nov, Hypothyroid E03.9 [place] [address] [id number] [address] [place] [address] Nov, Pulmonary emphysema, unspeci fied emphysema type J43.9 and Irritable bowel syndrome with diarrhea K58.0 [place] [address] [id number] [address] [place] [address] Oct, [place] [address] [place] [id number] [address] [place] [address] Oct, [place] [address] [place] [address] Oct, [place] [address] [id number] [address] [place] [address] Oct, [place] [address] [place] [id number] [address] [place] [address] Oct, Chronic pain G89.29 [place] [address] [address] Oct, Diabetes mellitus E11.9 ; De pression F32.9 ; Mixed hyperlipidemia E78.2 ; Hypotension, unspecified hypotension type I95.9 ; Pulmonary emphysema, unspecified emphysema type J43.9 and Weight loss, unintentional R63.4 [place] [address] [address] Oct, Chronic pain G89.29 [place] [address] [address] Sep, Chronic pain G89.29 [place] [address] [address] Sep, Hypothyroid E03.9 and Diabet es mellitus E11.9 [place] [address] [address] Aug, Type 2 diabetes mellitus wit h hyperglycemia E11.65 ; 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 ; Essential (primary) hypertension I10 ; Hypothyroid E03.9 ; Neuropathy G62.9 ; Chronic pain G89.29 ; Mixed hy perlipidemia E78.2 and Encounter for immunization Z23 [place] [address] [place] [id number] [address] [place] [address] Aug, Chronic pain G89.29 [place] [address] [place] [id number] [address] [place] [address] Aug, Overactive bladder N32.81 ; Diabetes mellitus E11.9 and Chronic pain G89.29 [place] [address] [place] [id number] [address] Jul, [facility] [address] [id number] [address] [place] [address] Jun, [facility] [address] [id number] [address] [place] [address] Jun, [facility] [address] [id number] [address] [place] [address] Jun, Hypothyroid E03.9 [facility] [address] [facility] [id number] [address] [place] [address] Jun, Diabetes mellitus E11.9 ; Hy pothyroid E03.9 ; Neuropathy G62.9 ; Chronic pain G89.29 and Neck mass R22.1 [facility] [address] [id number] [address] [place] [address] Apr, [facility] [address] [facility] [id number] [address] [place] [address] Apr, Acute cystitis without hemat uria N30.00 [facility] [address] [id number] [address] [place] [address] March, [facility] [address] [id number] [address] [place] [address] March, [facility] [address] [id number] [address] [place] [address] March, Near syncope R55 [facility] [address] [facility] [id number] [address] [place] [address] Feb, [facility] [address] [facility] [id number] [address] [place] [address] Feb, Chronic pain G89.29 [facility] [address] [facility] [id number] [address] [place] [address] Feb, [facility] [address] [facility] [id number] [address] [place] [address] Feb, [facility] [address] [place] [id number] [address] [place] [address] Jan, Chronic pain G89.29 [facility] [address] [address] Jan, [facility] [address] [address] 16 Jan, 2017 [facility] [address] [address] 14 Jan, 2017 Diabetes mellitus E11.9 ; Hy pothyroid E03.9 ; GERD (gastroesophageal reflux disease) K21.9 ; Insomnia G47.00 ; Functional diarrhea K59.1 ; Neuropathy G62.9 ; Depression F32.9 ; Chronic pain G89.29 ; Irritable bowel syndrome with diarrhea K58.0 ; Overactive bladder N32.81 ; Mixed hyperlipidemia E78.2 and Bronchitis J40 [facility] [address] [address] Dec, [facility] [address] [place] [id number] [address] [place] [address] Dec, [facility] [address] [address] Dec, [facility] [address] [place] [id number] [address] [place] [address] Dec, [facility] [address] [place] [id number] [address] [place] [address] Dec, Chronic pain G89.29 [facility] [address] [place] [id number] [address] [place] [address] Dec, [facility] [address] [place] [id number] [address] [place] [address] Dec, [facility] [address] [place] [id number] [address] [place] [address] Dec, Type 2 diabetes mellitus wit h foot ulcer E11.621 [place] [address] [place] [id number] [address] [place] [address] 17 Dec, 2016 Type 2 diabetes mellitus wit h foot ulcer E11.621 [place] [address] [place] [id number] [place] [address] 14 Dec, 2016 HTN (hypertension) I10 ; Dep ression F32.9 ; Type 2 diabetes mellitus with foot ulcer E11.621 ; Functional diarrhea K59.1 ; Irritable bowel syndrome with diarrhea K58.0 ; Chronic pain G89.29 ; Insomnia G47.00 ; Overactive bladder N32.81 ; Mixed hyperlipidemia E78.2 ; Gastroesophageal reflux disease with esophagitis K21.0 and Acquired hypothyroidism E03.9 [place] [address] [address] Nov, [place] [address] [address] Oct, [place] [address] [address] Oct, [place] [address] [address] Oct, [place] [address] [address] Sep, Functional diarrhea K59.1 ; HTN (hypertension) I10 ; Diabetes mellitus E11.9 ; Depression F32.9 ; Overactive bladder N32.81 ; Mixed hyperlipidemia E78.2 ; Gastroesophageal reflux disease without esophagitis K21.9 ; Chronic pain G89.29 ; Insomnia G47.00 and Acquired hypothyroidism E03.9 [place] [address] [address] Sep, [place] [address] [address] Aug, Encounter for immunization Z 23 [place] [address] [address] Aug, [place] [address] [address] Jul, [place] [address] [address] Jun, Type 2 diabetes mellitus wit hout complications E11.9 ; HTN (hypertension) I10 ; Hypothyroid E03.9 ; Neuropathy G62.9 ; Depression F32.9 ; Chronic pain G89.29 ; GERD (gastroesophageal reflux disease) K21.9 ; Insomnia G47.00 ; Overactive bladder N32.81 ; Mixed hyperlipidemia E78.2 ; Diarrhea of infectious origin A09 and Environmental allergies Z91.09 [place] [address] [address] Apr, [place] [address] [address] March, Hypothyroidism, unspecified E03.9 and Mixed hyperlipidemia E78.2 [place] [address] [address] March, Diabetes mellitus E11.9 ; HT N (hypertension) I10 ; Hypothyroid E03.9 ; Depression F32.9 ; Overactive bladder N32.81 ; Other chronic pain G89.29 ; Lumbago with sciatica, unspecified side M54.40 ; Environmental allergies Z91.09 and Gastroesophageal reflux disease, esophagitis presence not specified K21.9 [place] [address] [address] March, [place] [address] [address] Jan, HTN (hypertension) I10 ; Hyp othyroid E03.9 ; Neuropathy G62.9 ; Diabetes mellitus E11.9 ; Chronic pain G89.29 ; GERD (gastroesophageal reflux disease) K21.9 ; Overactive bladder N32.81 and Depression F32.9 [place] [address] [address] Dec, Ear pain, left H92.02 ; HTN (hypertension) I10 ; Hypothyroid E03.9 ; Neuropathy G62.9 ; Diabetes mellitus E11.9 ; Depression F32.9 ; GERD (gastroesophageal reflux disease) K21.9 ; Insomnia G47.00 and Overactive bladder N32.81 [place] [address] [place] [address] Nov, Overactive bladder N32.81 an d Chronic pain G89.29 [place] [address] [place] [id number] [place] [address] Nov, Kidney failure N19 [place] [address] [place] [id number] [place] [address] Nov, [place] [address] [place] [id number] [address] [place] [address] Nov, [place] [address] [address] Nov, Diabetes mellitus E11.9 ; De pression F32.9 ; Chronic pain G89.29 ; GERD (gastroesophageal reflux disease) K21.9 ; Insomnia G47.00 ; HTN (hypertension) I10 ; Hypothyroid E03.9 ; COPD (chronic obstructive pulmonary disease) J44.9 ; Bladder incontinence R32 and Incontinence R32 [place] [address] [place] [address] Sep, Type 2 diabetes mellitus wit h foot ulcer E11.621 and Chromosomal abnormality, 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 [place] [address] [place] [id number] [address] [place] [address] Sep, [place] [address] [place] [id number] [place] [address] Aug, [place] [address] [place] [id number] [address] [place] [address] Aug, [place] [address] [place] [id number] [place] [address] Aug, HTN (hypertension) I10 ; Enc ounter for immunization Z23 ; Hypothyroid E03.9 ; Neuropathy G62.9 ; Diabetes mellitus E11.9 ; Depression F32.9 ; Chronic pain G89.29 ; GERD (gastroesophageal reflux disease) K21.9 ; Insomnia G47.00 and COPD (chronic obstructive pulmonary disease) J44.[address] [address] Jun, [address] [address] Jun, [address] [address] May, Essential hypertension, ivis gn 401.1 ; Unspecified hypothyroidism 244.9 ; Insomnia, unspecified 780.52 ; Shortness of breath 786.05 ; Depression 311 ; COPD (chronic obstructive pulmonary disease) 496 ; GERD (gastroesophageal reflux disease) 530.81 and Diabetes 1.5, 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 [address] May, [address] [address] May, [address] [address] May, Shortness of breath 786.05 ; Essential hypertension, benign 401.1 ; Diabetes mellitus 250.00 ; Hyperlipidemia 272.4 ; Hypothyroid 244.9 ; Insomnia 780.52 and Cough 786.[address] [address] Apr, [address] [address] March, Shortness of breath 786.05 ; Nausea with vomiting 787.01 ; Essential hypertension, benign 401.1 ; Diabetes mellitus 250.00 ; Hyperlipidemia 272.4 and Hypothyroid 244.[address] [address] 14 Feb, 2015 [facility] [address] [id number] [address] [place] [address], [place] [address] Feb, [facility] [address] [id number] [address] [place] [address], [place] [address] Jan, [facility] [address] [id number] [address] [place] [address], [place] [address] Jan, [facility] [place] [facility] [address] [id number] [address] [place] [address], [place] [address] Jan, [facility] [address] [id number] [address] [place] [address], [place] [address] Jan, [facility] [address] [id number] [address] [place] [address], [place] [address] Jan, [facility] [address] [id number] [address] [place] [address], [place] [address] Jan, [facility] [address] [id number] [address] [place] [address], [place] [address] Jan, [facility] [address] [id number] [address] [place] [address], [place] [address] Jan, [facility] [address] [id number] [address] [place] [address], [place] [address] Jan, [facility] [address] [id number] [address] [place] [address], [place] [address] Jan, [facility] [place] [facility] [address] [id number] [address] [place] [address], [place] [address] Dec, [facility] [place] [facility] [address] [id number] [address] [place] [address], [place] [address] Dec, [facility] [place] [facility] [address] [id number] [address] [place] [address], [place] [address] Dec, [facility] [place] [facility] [address] [id number] [address] [place] [address], [place] [address] Dec, [facility] [place] [facility] [address] [id number] [address] [place] [address], [place] [address] Dec, 2014 [facility] [address] [id number] [address] [place] [address], [place] [address] Dec, 2014 [facility] [address] [id number] [address] [place] [address], [place] [address] Dec, 2014 [facility] [place] [facility] [address] [id number] [address] [place] [address], [place] [address] Dec, 2014 [facility] [address] [id number] [address] [place] [address], [place] [address] Dec, 2014 [facility] [address] [id number] [address] [place] [address], [place] [address] Dec, 2014 [facility] [address] [id number] [address] [place] [address], [place] [address] Oct, [facility] [address] [id number] [address] [place] [address], [place] [address] Oct, [facility] [address] [id number] [address] [place] [address], [place] [address] Oct, [facility] [address] [id number] [address] [place] [address], [place] [address] Oct, [facility] [address] [id number] [address] [place] [id number] Oct, [facility] [address] [id number] [address] [place] [id number] Oct, [facility] [address] [id number] [address] [place] [address], [place] [address] Oct, [facility] [address] [id number] [address] [place] [address], [place] [address] Oct, [facility] [address] [id number] [address] [place] [id number] Oct, [facility] [address] [id number] [address] [place] [address], [place] [address] Oct, [facility] [address] [id number] [address] [place] [address], [place] [address] Oct, [facility] [address] [id number] [address] [place] [address], [place] [address] Oct, [facility] [address] [id number] [address] [place] [address], [place] [address] Oct, [facility] [address] [id number] [address] [place] [address], [place] [address] Oct, [facility] [address] [id number] [address] [place] [address], [place] [address] Sep, [facility] [address] [id number] [address] [place] [address], [place] [address] Sep, [facility] [address] [id number] [address] [place] [address], [place] [address] Sep, [facility] [address] [id number] [address] [place] [address], [place] [address] Sep, [facility] [address] [id number] [address] [place] [address], [place] [address] Sep, [facility] [address] [id number] [address] [place] [address], [place] [address] Sep, [facility] [address] [id number] [address] [place] [address], [place] [address] Sep, [facility] [address] [id number] [address] [place] [address], [place] [address] Sep, [facility] [address] [id number] [address] [place] [address], [place] [address] Sep, [facility] [address] [id number] [address] [place] [address], [place] [address] Aug, [facility] [address] [id number] [address] [place] [address], [place] [address] Aug, [facility] [address] [id number] [address] [place] [address], [place] [address] 17 Aug, 2013 [facility] [address] [id number] [address] [place] [address], [place] [address] 17 Aug, 2014 [facility] [address] [id number] [address] [place] [address], [place] [address] 16 Aug, 2013 [facility] [address] [id number] [address] [place] [address], [place] [address] Aug, [facility] [address] [id number] [address] [place] [address], [place] [address] Aug, [facility] [address] [id number] [address] [place] [address], [place] [address] Aug, [facility] [address] [id number] [address] [place] [address], [place] [address] Aug, [facility] [address] [id number] [address] [place] [address], [place] [address] 29 Jul, 2013 [facility] [address] [id number] [address] [place] [address], [place] [address] 29 Sep, 2013 [facility] [address] [id number] [address] [place] [address], [place] [address] 25 Sep, 2013 [facility] [address] [id number] [address] [place] [address], [place] [address] 25 Sep, 2013 [facility] [address] [id number] [address] [place] [address], [place] [address] 25 Sep, 2013 [facility] [address] [id number] [address] [place] [address], [place] [address] 25 Sep, 2013 [facility] [address] [id number] [address] [place] [address], [place] [address] 25 Jul, 2013 [facility] [address] [id number] [address] [place] [address], [place] [address] 25 Jul, 2013 [facility] [address] [id number] [address] [place] [address], [place] [address] Jul, [facility] [address] [id number] [facility] [place] [address] Jul, [facility] [address] [id number] [facility] [place] [address] Jun, [facility] [address] [id number] [facility] [place] [address] Jun, [facility] [address] [id number] [address] [place] [address], [place] [address] Jun, [facility] [address] [id number] [facility] [place] [address] Jun, [facility] [address] [id number] [address] [place] [address], [place] [address] Jun, [facility] [address] [id number] [address] [place] [address], [place] [address] Jun, [facility] [address] [id number] [address] [place] [address], [place] [address] Jun, [facility] [address] [id number] [address] [place] [address], [place] [address] Jun, [facility] [address] [id number] [address] [place] [address], [place] [address] Jun, [facility] [address] [id number] [address] [place] [address], [place] [address] Jun, [facility] [address] [id number] [address] [place] [address], [place] [address] Jun, [facility] [address] [id number] [address] [place] [address], [place] [address] Jun, [facility] [address] [id number] [address] [place] [address], [place] [address] May, [facility] [address] [id number] [address] [place] [address], [place] [address] May, [facility] [address] [id number] [facility] [place] [address] May, [facility] [address] [id number] [address] [place] [address], [place] [address] May, [facility] [address] [id number] [address] [place] [address], [place] [address] May, [facility] [address] [id number] [address] [place] [address], [place] [address] May, [facility] [address] [id number] [address] [place] [address], [place] [address] March, [facility] [address] [id number] [address] [place] [address], [place] [address] March, [facility] [address] [id number] [address] [place] [address], [place] [address] March, [facility] [address] [id number] [address] [place] [address], [place] [address] March, [facility] [address] [id number] [address] [place] [address], [place] [address] March, [facility] [address] [id number] [address] [place] [address], [place] [address] March, [facility] [address] [id number] [address] [place] [address], [place] [address] Feb, [facility] [address] [id number] [address] [place] [address], [place] [address] Feb, [facility] [address] [id number] [address] [place] [address], [place] [address] Feb, [facility] [address] [id number] [address] [place] [address], [place] [address] Feb, [facility] [address] [id number] [address] [place] [address], [place] [address] Jan, [facility] [address] [id number] [address] [place] [address], [place] [address] Jan, [facility] [address] [id number] [facility] [place] [address] Jan, [facility] [address] [id number] [facility] [place] [address] Jan, [facility] [address] [id number] [facility] [place] [address] Jan, [facility] [address] [id number] [address] [place] [address], [place] [address] Jan, [facility] [address] [id number] [address] [place] [address], [place] [address] Jan, [facility] [address] [id number] [address] [place] [address], [place] [address] Jan, [facility] [address] [id number] [address] [place] [address], [place] [address] Jan, [facility] [address] [id number] [address] [place] [address], [place] [address] Jan, [facility] [address] [id number] [address] [place] [address], [place] [address] Jan, [facility] [address] [id number] [address] [place] [address], [place] [address] Jan, [facility] [address] [id number] [address] [place] [address], [place] [address] Dec, [facility] [address] [id number] [address] [place] [address], [place] [address] Dec, [facility] [address] [id number] [address] [place] [address], [place] [address] Dec, [facility] [address] [id number] [address] [place] [address], [place] [address] Dec, [facility] [address] [id number] [address] [place] [address], [place] [address] Dec, [facility] [address] [id number] [address] [place] [address] Dec, [facility] [address] [id number] [address] [place] [address], [place] [address] Nov, [facility] [address] [id number] [address] [place] [address], [place] [address] Nov, [facility] [address] [id number] [address] [place] [address], [place] [address] Oct, [facility] [address] [id number] [address] [place] [address], [place] [address] Oct, [facility] [address] [id number] [address] [place] [address], [place] [address] Oct, [facility] [address] [id number] [address] [place] [address], [place] [address] Oct, [facility] [address] [id number] [address] [place] [address], [place] [address] Oct, [facility] [address] [id number] [address] [place] [address], [place] [address] Oct, [facility] [address] [id number] [address] [place] [address], [place] [address] Sep, [facility] [address] [id number] [address] [place] [address], [place] [address] Sep, [facility] [address] [id number] [address] [place] [address], [place] [address] Sep, [facility] [address] [id number] [address] [place] [address], [place] [address] Sep, [facility] [address] [id number] [address] [place] [address], [place] [address] Aug, [facility] [address] [id number] [address] [place] [address], [place] [address] Aug, [facility] [address] [id number] [address] [place] [address] Aug, [facility] [address] [id number] [address] [place] [address], [place] [address] 17 Jul, 2013 [facility] [address] [id number] [address] [place] [address], [place] [address] 14 Jul, 2013 [facility] [address] [id number] [address] [place] [address], [place] [address] 04 Jul, 2013 [facility] [address] [id number] [address] [place] [address], [place] [address] Jun, [facility] [address] [id number] [address] [place] [address], [place] [address] Jun, [facility] [address] [id number] [address] [place] [address], [place] [address] Jun, [facility] [address] [id number] [address] [place] [address], [place] [address] Apr, [facility] [address] [id number] [address] [place] [address], [place] [address] Apr, [facility] [address] [id number] [address] [place] [address], [place] [address] March, [facility] [address] [id number] [address] [place] [address], [place] [address] March, [facility] [address] [id number] [address] [place] [address], [place] [address] March, [facility] [address] [id number] [address] [place] [address], [place] [address] March, [facility] [address] [id number] [address] [place] [address], [place] [address] Feb, [facility] [address] [id number] [address] [place] [address], [place] [address] Jan, [facility] [address] [id number] [address] [place] [address], [place] [address] Dec, [facility] [address] [id number] [address] [place] [address], [place] [address] 08 Dec, 2012 [facility] [address] [id number] [address] [place] [address], [place] [address] Dec, [facility] [address] [id number] [address] [place] [address], [place] [address] Nov, [facility] [address] [id number] [address] [place] [address], [place] [address] Oct, [facility] [address] [id number] [address] [place] [address], [place] [address] Oct, [facility] [address] [id number] [address] [place] [address], [place] [address] Sep, [facility] [address] [id number] [address] [place] [address], [place] [address] Sep, [facility] [address] [id number] [address] [place] [address], [place] [address] Sep, [facility] [address] [id number] [address] [place] [address], [place] [address] Sep, [facility] [address] [id number] [address] [place] [address], [place] [address] Sep, [facility] [address] [id number] [address] [place] [address], [place] [address] Sep, [facility] [address] [id number] [address] [place] [address], [place] [address] Sep, [facility] [address] [id number] [address] [place] [address], [place] [address] Aug, [facility] [address] [id number] [address] [place] [address], [place] [address] Aug, [facility] [address] [id number] [address] [place] [address], [place] [address] Aug, [facility] [address] [id number] [address] [place] [address], [place] [address] Aug, [facility] [address] [id number] [address] [place] [address], [place] [address] 08 Aug, 2012 [facility] [address] [id number] [address] [place] [address], [place] [address] 08 Aug, 2012 [facility] [address] [id number] [address] [place] [address], [place] [address] Aug, [facility] [address] [id number] [address] [place] [address], [place] [address] Aug, [facility] [address] [id number] [address] [place] [address], [place] [address] Jul, [facility] [address] [id number] [address] [place] [address], [place] [address] Jul, [facility] [address] [id number] [address] [place] [address], [place] [address] Jun, [facility] [address] [id number] [address] [place] [address], [place] [address] May, [facility] [address] [id number] [address] [place] [address], [place] [address] Apr, [facility] [address] [id number] [address] [place] [address], [place] [address] Apr, [facility] [address] [id number] [address] [place] [address], [place] [address] Apr, [facility] [address] [id number] [address] [place] [address], [place] [address] March, [facility] [address] [id number] [address] [place] [address], [place] [address] March, [facility] [address] [id number] [address] [place] [address], [place] [address] March, [facility] [address] [id number] [address] [place] [address], [place] [address] March, [facility] [address] [id number] [address] [place] [address], [place] [address] March, [facility] [address] [id number] [address] [place] [address], [place] [address] March, [facility] [address] [id number] [address] [place] [address], [place] [address] March, [facility] [address] [id number] [address] [place] [address], [place] [address] Jan, [facility] [address] [id number] [address] [place] [address], [place] [address] Jan, [facility] [address] [id number] [address] [place] [address], [place] [address] Jan, [facility] [address] [id number] [address] [place] [address], [place] [address] Jan, [facility] [address] [id number] [address] [place] [address], [place] [address] Jan, [facility] [address] [id number] [address] [place] [address], [place] [address] Dec, [facility] [address] [id number] [address] [place] [address], [place] [address] Dec, [facility] [address] [id number] [address] [place] [address], [place] [address] Nov, [facility] [address] [id number] [address] [place] [address], [place] [address] Nov, [facility] [address] [id number] [address] [place] [address], [place] [address] Nov, [facility] [address] [id number] [address] [place] [address], [place] [address] Nov, [facility] [address] [id number] [address] [place] [address], [place] [address] Oct, [facility] [address] [id number] [address] [place] [address], [place] [address] Oct, [facility] [address] [id number] [address] [place] [address], [place] [address] 14 Sep, 2011 [facility] [address] [id number] [address] [place] [address], [place] [address] 10 Sep, 2011 [facility] [address] [id number] [address] [place] [address], [place] [address] 10 Sep, 2011 [facility] [address] [id number] [address] [place] [address], [place] [address] 11 May, 2011 [facility] [address] [id number] [address] [place] [address], [place] [address] 20 Nov, 2010 [facility] [address] [id number] [address] [place] [address], [place] [address] 29 Oct, 2010 [facility] [address] [id number] [address] [place] [address], [place] [address] 14 Oct, 2010 [facility] [address] [id number] [address] [place] [address], [place] [address] 08 Oct, 2010 [facility] [address] [id number] [address] [place] [address], [place] [address] 15 Sep, 2010 [facility] [address] [id number] [address] [place] [address], [place] [address] 02 Sep, 2010 [facility] [address] [id number] [address] [place] [address], [place] [address] Aug, [facility] [address] [id number] [address] [place] [address], [place] [address] March, [facility] [address] [id number] [address] [place] [address], [place] [address] 17 Oct, 2009 [facility] [address] [id number] [address] [place] [address], [place] [address] Oct, [facility] [address] [id number] [address] [place] [address], [place] [id number] Oct, [facility] [address] [id number] [address] [place] [address], [place] [id number] Oct, [facility] [address] [id number] [address] [place] [id number] Sep, [facility] [address] [id number] [address] [place] [id number] Sep, [facility] [address] [id number] [address] [place] [id number] Sep, [facility] [address] [id number] [address] [place] [phone] Aug, [facility] [address] [id number] [address] [place] [id number] Aug, [facility] [address] [id number] [address] [place] [id number] Aug, [facility] [address] [facility] [id number] [address] [place] [phone] Jan, IMMUNIZATIONS No Known Immunizations SOCIAL HISTORY Never Assessed REASON FOR VISIT Number busy PLAN OF CARE VITAL SIGNS MEDICATIONS Medication Instructions Dosage Frequency Start Date End Date Duration S joseus Clindamycin HCl 300 MG Orally 2 times a day 1 capsule 12h May, Jun, 07 days Active BD Ultra-Fine Micro Pen Needle 32G X 6 MM subcutaneously 3 t imes a day use to inject insulin 8h 31 May, 2018 Active RESULTS No Results PROCEDURES No Known [...]
--- OUTSIDE RECORDS SUMMARY | 2020-06-13 16:22 | XMS REPORT ---
Author Author Jah PARKER Organization [facility] Address [address] [place] [address] Care Team Providers Care Security Consultant Name Role Phone PARKERSHAYLEE MckeonELE Unavailable PROBLEMS Type Condition ICD9-CM Code XFL58-LX Code Onset Dates Condition S tatus SNOMED Code Problem Type 2 diabetes mellitus with hyperglycemia E11.65 Active 15241772 Problem Pulmonary emphysema, unspecified emphysema type J4 3.9 Active 28967925 Problem Essential (primary) hypertension I10 Active 93145451 Problem Hypertriglyceridemia E78.1 Active 665664962 Problem Major depressive disorder, recurrent episode, moderate F33.1 Active 414827492 Problem Recurrent major depressive disorder, in partial remission F33.41 Active 46737561 Problem Current non-adherence to medical treatment Z91.19 Active 8505981 Problem Anxiety disorder, unspecified type F41.9 Active 799419392 Problem Chronic fatigue R53.82 Active 8422 9001 Problem Chronic pain G89.29 Active 9482961 1 Problem Neuropathy G62.9 Active 522036860 Problem Thrombocytosis D47.3 Active 63551 09 Problem Mixed hyperlipidemia E78.2 Active 536924445 Problem Gastroesophageal reflux disease with esophagitis K 21.0 Active 573404123 Problem Hypothyroid E03.9 Active 93517543 Problem Irritable bowel syndrome with diarrhea K58.0 Active 984309663 Problem Overactive bladder N32.81 Active 2 39246486 Problem [facility] current use of insulin Z79.4 Active [id number] ALLERGIES No Information ENCOUNTERS Encounter Location Date Diagnosis [facility] [address] [facility] [facility] [id number] [address] [place] [address] Jun, Type 2 diabetes mellitus wit h hyperglycemia E11.65 ; Neuropathy G62.9 ; Recurrent major depressive disorder, in partial remission F33.41 ; Chronic pain G89.[address] [facility] [address] [facility] [address] [facility] [id number] [address] [place] [address] Jun, Hypothyroid E03.9 [facility] [address] [id number] [address] [place] [address] Jun, Major depressive disorder, r ecurrent episode, moderate F33.1 and Anxiety disorder, unspecified type F41.9 [facility] [address] [id number] [address] [place] [address] Jun, [place] [address] [address] [facility] [facility] [id number] [address] [place] [address] Jun, Type 2 diabetes mellitus wit h hyperglycemia E11.65 ; terminal gauger current use of insulin Z79.4 ; Recurrent major depressive disorder, in partial remission F33.41 ; Hypothyroid E03.9 ; Candidal dermatitis B37.2 and Weakness generalized R53.1 [place] [address] [facility] [id number] [address] [place] [address] May, [place] [address] [id number] [address] [place] [address] May, [place] [address] [id number] [address] [place] [address] May, [place] [address] [address] [facility] [id number] [address] [place] [address] May, Generalized abdominal pain R 10.84 and Candidal dermatitis B37.2 [place] [address] [facility] [id number] [address] [place] [address] May, [place] [address] [id number] [address] [place] [address] May, [place] [address] [address] [facility] [id number] [address] [place] [address] May, Nodular radiologic density R 93.8 ; Weight loss, unintentional R63.4 and Pulmonary emphysema, unspecified emphysema type J43.9 [place] [address] [facility] [id number] [address] [place] [address] May, Chronic pain G89.29 [facility] [address] [id number] [address] [place] [address] 09 May, 2018 Syncope and collapse R55 ; C hronic fatigue R53.[address] lung screening R91.8 [facility] [address] [id number] [address] [place] [address] May, [facility] [address] [id number] [address] [place] [address] Apr, Chronic fatigue R53.82 ; Abn ormal chest CT R93.8 ; Elevated erythrocyte sedimentation rate R70.0 ; Hypothyroid E03.9 and Recurrent major depressive disorder, in partial remission F33.41 [facility] [address] [id number] [address] [place] [address] Apr, Hypothyroid E03.9 [facility] [address] [id number] [address] [place] [address] Apr, Depression F32.9 [facility] [address] [id number] [address] [place] [address] Apr, [facility] [address] [id number] [address] [place] [address] March, [facility] [address] [facility] [address] [facility] [id number] [address] [place] [address] March, Hypothyroid E03.9 [facility] [address] [facility] [address] [facility] [id number] [address] [place] [address] March, Diabetes mellitus E11.[address] [facility] [address] [id number] [address] [place] [address] March, Diabetes mellitus E11.9 [facility] [address] [facility] [address] [facility] [id number] [address] [place] [address] March, Hypothyroid E03.9 and Elevat ed liver enzymes R74.8 [facility] [address] [facility] [address] [facility] [id number] [address] [place] [address] March, Type 2 diabetes mellitus wit h hyperglycemia E11.65 ; [facility]FP current use of insulin Z79.4 ; Pulmonary emphysema, unspecified emphysema type J43.9 ; Hypothyroid E03.9 ; Neuropathy G62.9 ; Mixed hyperlipidemia E78.2 ; Chronic pain G89.29 ; Gastroesophageal reflux disease with esophagitis K21.0 ; Irritable bowel syndrome with diarrhea K58.0 ; Overactive bladder N32.81 and Recurrent major depressive disorder, in partial remission F33.41 [place] [id number] [place] [address] Feb, Chronic pain G89.29 [place] [id number] [place] [address] Feb, Type 2 diabetes mellitus wit h hyperglycemia E11.65 and Skin lesion of scalp L98.9 [place] [id number] [address] [place] [address] Feb, [place] [address] [address] Jan, Type 2 diabetes mellitus wit h hyperglycemia E11.65 ; terminal gauger current use of insulin Z79.4 ; Essential (primary) hypertension I10 ; Pulmonary emphysema, unspecified emphysema type J43.9 ; Chronic pain G89.29 ; Controlled substance agreement signed Z79.899 ; Hypothyroid E03.9 ; Neuropathy G62.9 ; Gastroesophageal reflux disease with esophagitis K21.0 ; Overactive bladder N32.81 ; Depression F32.9 and Irritable bowel syndrome with diarrhea K58.0 [place] [address] [address] [place] [id number] [address] [place] [address] Jan, [place] [address] [place] [id number] [address] [place] [address] Jan, Controlled substance agreeme nt signed Z79.899 [place] [address] [address] [place] [id number] [address] [place] [address] Dec, Type 2 diabetes mellitus wit h hyperglycemia E11.65 ; Controlled substance agreement signed Z79.899 ; terminal gauger current use of insulin Z79.4 ; Essential (primary) hypertension I10 ; Hypothyroid E03.9 ; Neuropathy G62.9 ; Depression F32.9 ; Mixed hyperlipidemia E78.2 ; Irritable bowel syndrome with diarrhea K58.0 ; Gastroesophageal reflux disease with esophagitis K21.0 ; Thrombocytosis D47.3 ; Current non-adherence to medical treatment Z91.19 and Overweight (BMI 25.0-29.9) E66.3 [place] [address] [address] [facility] [id number] [address] [place] [address] 02 Dec, 2017 Controlled substance agreeme nt signed Z79.899 [place] [address] [place] [id number] [address] [place] [address] Nov, Type 2 diabetes mellitus wit h hyperglycemia E11.65 and Current non- adherence to medical treatment Z91.19 [place] [address] [address] [facility] [facility] [id number] [address] [place] [address] Nov, [place] [address] [address] [facility] [id number] [address] [place] [address] Nov, Chronic pain G89.29 [place] [address] [place] [id number] [address] [place] [address] Nov, [place] [address] [place] [id number] [address] [place] [address] Nov, Hypothyroid E03.9 [place] [address] [address] [facility] [id number] [address] [place] [address] Nov, Hypothyroid E03.9 [place] [address] [address] [facility] [id number] [address] [place] [address] Nov, Pulmonary emphysema, unspeci fied emphysema type J43.9 and Irritable bowel syndrome with diarrhea K58.0 [place] [address] [address] [facility] [facility] [id number] [address] [place] [address] Oct, [place] [address] [place] [id number] [address] [place] [address] Oct, [place] [id number] [place] [address] Oct, [place] [address] [address] [facility] [id number] [address] [place] [address] Oct, [place] [address] [place] [id number] [address] [place] [address] Oct, Chronic pain G89.29 [place] [address] [address] Oct, Diabetes mellitus E11.9 ; De pression F32.9 ; Mixed hyperlipidemia E78.2 ; Hypotension, unspecified hypotension type I95.9 ; Pulmonary emphysema, unspecified emphysema type J43.9 and Weight loss, unintentional R63.4 [place] [address] [address] Oct, Chronic pain G89.29 [place] [address] [address] Sep, Chronic pain G89.29 [place] [address] [address] Sep, Hypothyroid E03.9 and Diabet es mellitus E11.9 [place] [address] [address] Aug, Type 2 diabetes mellitus wit h hyperglycemia E11.65 ; terminal gauger current use of insulin Z79.4 ; Essential (primary) hypertension I10 ; Hypothyroid E03.9 ; Neuropathy G62.9 ; Chronic pain G89.29 ; Mixed hy perlipidemia E78.2 and Encounter for immunization Z23 [place] [address] [address] [place] [id number] [place] [address] Aug, Chronic pain G89.29 [place] [address] [place] [id number] [address] [place] [address] Aug, Overactive bladder N32.81 ; Diabetes mellitus E11.9 and Chronic pain G89.29 [place] [address] [place] [id number] [place] [address] Jul, [facility] [address] [facility] [id number] [address] [place] [address] Jun, [facility] [address] [address] [facility] [id number] [address] [place] [address] Jun, [facility] [address] [facility] [id number] [address] [place] [address] Jun, Hypothyroid E03.9 [facility] [address] [facility] [id number] [address] [place] [address] Jun, Diabetes mellitus E11.9 ; Hy pothyroid E03.9 ; Neuropathy G62.9 ; Chronic pain G89.29 and Neck mass R22.1 [facility] [address] [facility] [id number] [address] [place] [address] Apr, [facility] [address] [facility] [id number] [address] [place] [address] Apr, Acute cystitis without hemat uria N30.00 [facility] [address] [facility] [id number] [address] [place] [address] March, [facility] [address] [address] [facility] [id number] [address] [place] [address] March, [facility] [address] [facility] [id number] [address] [place] [address] March, Near syncope R55 [facility] [address] [address] [facility] [id number] [address] [place] [address] Feb, [facility] [address] [address] [facility] [id number] [address] [place] [address] Feb, Chronic pain G89.29 [facility] [address] [address] [facility] [id number] [address] [place] [address] Feb, [facility] [address] [address] [facility] [id number] [address] [place] [address] Feb, [facility] [address] [place] [id number] [address] [place] [address] Jan, Chronic pain G89.29 [facility] [address] [address] Jan, [facility] [address] [address] 16 Jan, 2017 [facility] [address] [address] 14 Jan, 2017 Diabetes mellitus E11.9 ; Hy pothyroid E03.9 ; GERD (gastroesophageal reflux disease) K21.9 ; Insomnia G47.00 ; Functional diarrhea K59.1 ; Neuropathy G62.9 ; Depression F32.9 ; Chronic pain G89.29 ; Irritable bowel syndrome with diarrhea K58.0 ; Overactive bladder N32.81 ; Mixed hyperlipidemia E78.[address] [facility] [address] [address] Dec, [facility] [address] [place] [id number] [address] [place] [address] Dec, [facility] [address] [address] Dec, [facility] [address] [place] [id number] [address] [place] [address] Dec, [facility] [address] [place] [id number] [address] [place] [address] Dec, Chronic pain G89.29 [facility] [address] [place] [id number] [address] [place] [address] Dec, [facility] [address] [place] [id number] [address] [place] [address] Dec, [facility] [address] [place] [id number] [address] [place] [address] Dec, Type 2 diabetes mellitus wit h foot ulcer E11.621 [place] [address] [place] [id number] [address] [place] [address] 17 Dec, 2016 Type 2 diabetes mellitus wit h foot ulcer E11.621 [place] [address] [place] [id number] [place] [address] 14 Dec, 2016 HTN (hypertension) I10 ; Dep ression F32.9 ; Type 2 diabetes mellitus with foot ulcer E11.621 ; Functional diarrhea K59.1 ; Irritable bowel syndrome with diarrhea K58.0 ; Chronic pain G89.29 ; Insomnia G47.00 ; Overactive bladder N32.81 ; Mixed hyperlipidemia E78.2 ; Gastroesophageal reflux disease with esophagitis K21.0 and Acquired hypothyroidism E03.9 [place] [address] [address] Nov, [place] [address] [address] Oct, [place] [address] [address] Oct, [place] [address] [address] Oct, [place] [address] [address] Sep, Functional diarrhea K59.1 ; HTN (hypertension) I10 ; Diabetes mellitus E11.9 ; Depression F32.9 ; Overactive bladder N32.81 ; Mixed hyperlipidemia E78.2 ; Gastroesophageal reflux disease without esophagitis K21.9 ; Chronic pain G89.29 ; Insomnia G47.00 and Acquired hypothyroidism E03.9 [place] [address] [address] Sep, [place] [address] [address] Aug, Encounter for immunization Z 23 [place] [address] [address] Aug, [place] [address] [address] Jul, [place] [address] [address] Jun, Type 2 diabetes mellitus wit hout complications E11.9 ; HTN (hypertension) I10 ; Hypothyroid E03.9 ; Neuropathy G62.9 ; Depression F32.9 ; Chronic pain G89.29 ; GERD (gastroesophageal reflux disease) K21.9 ; Insomnia G47.00 ; Overactive bladder N32.81 ; Mixed hyperlipidemia E78.2 ; Diarrhea of infectious origin A09 and Environmental allergies Z91.09 [place] [address] [address] Apr, [place] [address] [address] March, Hypothyroidism, unspecified E03.9 and Mixed hyperlipidemia E78.2 [place] [address] [address] March, Diabetes mellitus E11.9 ; HT N (hypertension) I10 ; Hypothyroid E03.9 ; Depression F32.9 ; Overactive bladder N32.81 ; Other chronic pain G89.29 ; Lumbago with sciatica, unspecified side M54.40 ; Environmental allergies Z91.09 and Gastroesophageal reflux disease, esophagitis presence not specified K21.9 [place] [address] [address] March, [place] [address] [address] Jan, HTN (hypertension) I10 ; Hyp othyroid E03.9 ; Neuropathy G62.9 ; Diabetes mellitus E11.9 ; Chronic pain G89.29 ; GERD (gastroesophageal reflux disease) K21.9 ; Overactive bladder N32.81 and Depression F32.9 [place] [address] [address] Dec, Ear pain, left H92.02 ; HTN (hypertension) I10 ; Hypothyroid E03.9 ; Neuropathy G62.9 ; Diabetes mellitus E11.9 ; Depression F32.9 ; GERD (gastroesophageal reflux disease) K21.9 ; Insomnia G47.00 and Overactive bladder N32.81 [place] [id number] [place] [address] Nov, Overactive bladder N32.81 an d Chronic pain G89.29 [place] [address] [place] [id number] [place] [address] Nov, Kidney failure N19 [place] [address] [place] [id number] [place] [address] Nov, [place] [address] [place] [id number] [address] [place] [address] Nov, [place] [address] [address] Nov, Diabetes mellitus E11.9 ; De pression F32.9 ; Chronic pain G89.29 ; GERD (gastroesophageal reflux disease) K21.9 ; Insomnia G47.00 ; HTN (hypertension) I10 ; Hypothyroid E03.9 ; COPD (chronic obstructive pulmonary disease) J44.9 ; Bladder incontinence R32 and Incontinence R32 [place] [id number] [place] [address] Sep, Type 2 diabetes mellitus wit h foot ulcer E11.621 and Chromosomal abnormality, 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 [place] [address] [place] [id number] [address] [place] [address] Sep, [place] [address] [place] [id number] [place] [address] Aug, [place] [address] [place] [id number] [address] [place] [address] Aug, [place] [address] [place] [id number] [place] [address] Aug, HTN (hypertension) I10 ; Enc ounter for immunization Z23 ; Hypothyroid E03.9 ; Neuropathy G62.9 ; Diabetes mellitus E11.9 ; Depression F32.9 ; Chronic pain G89.29 ; GERD (gastroesophageal reflux disease) K21.9 ; Insomnia G47.00 and COPD (chronic obstructive pulmonary disease) J44.[address] [address] Jun, [address] [address] Jun, [address] [address] May, Essential hypertension, ivis gn 401.1 ; Unspecified hypothyroidism 244.9 ; Insomnia, unspecified 780.52 ; Shortness of breath 786.05 ; Depression 311 ; COPD (chronic obstructive pulmonary disease) 496 ; GERD (gastroesophageal reflux disease) 530.81 and Diabetes 1.5, 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 [address] May, [address] [address] May, [address] [address] May, Shortness of breath 786.05 ; Essential hypertension, benign 401.1 ; Diabetes mellitus 250.00 ; Hyperlipidemia 272.4 ; Hypothyroid 244.9 ; Insomnia 780.52 and Cough 786.[address] [address] Apr, [address] [address] March, Shortness of breath 786.05 ; Nausea with vomiting 787.01 ; Essential hypertension, benign 401.1 ; Diabetes mellitus 250.00 ; Hyperlipidemia 272.4 and Hypothyroid 244.[address] [address] 14 Feb, 2015 [facility] [address] [id number] [address] [place] [address], [place] [address] Feb, [facility] [address] [id number] [address] [place] [address], [place] [address] Jan, [facility] [address] [id number] [address] [place] [address], [place] [address] Jan, [facility] [place] [facility] [address] [id number] [address] [place] [address], [place] [address] Jan, [facility] [address] [id number] [address] [place] [address], [place] [address] Jan, [facility] [address] [id number] [address] [place] [address], [place] [address] Jan, [facility] [address] [id number] [address] [place] [address], [place] [address] Jan, [facility] [address] [id number] [address] [place] [address], [place] [address] Jan, [facility] [address] [id number] [address] [place] [address], [place] [address] Jan, [facility] [address] [id number] [address] [place] [address], [place] [address] Jan, [facility] [address] [id number] [address] [place] [address], [place] [address] Jan, [facility] [address] [id number] [address] [place] [address], [place] [address] Dec, [facility] [address] [id number] [address] [place] [address], [place] [id number] Dec, [facility] [address] [id number] [address] [place] [address], [place] [address] Dec, [facility] [address] [id number] [address] [place] [address], [place] [id number] Dec, [facility] [address] [id number] [address] [place] [address], [place] [id number] Dec, 2014 [facility] [address] [id number] [address] [place] [address], [place] [id number] Dec, 2014 [facility] [address] [id number] [address] [place] [address], [place] [id number] Dec, 2014 [facility] [address] [id number] [address] [place] [address], [place] [address] Dec, 2014 [facility] [address] [id number] [address] [place] [address], [place] [address] Dec, 2014 [facility] [address] [id number] [address] [place] [address], [place] [id number] Dec, 2014 [facility] [address] [id number] [address] [place] [address], [place] [address] Oct, [facility] [address] [id number] [address] [place] [address], [place] [address] Oct, [facility] [address] [id number] [address] [place] [address], [place] [id number] Oct, [facility] [address] [id number] [address] [place] [address], [place] [address] Oct, [facility] [address] [id number] [address] [place] [id number] Oct, [facility] [address] [id number] [address] [place] [id number] Oct, [facility] [address] [id number] [address] [place] [address], [place] [address] Oct, [facility] [address] [address] [id number] [address] [place] [address], [place] [address] Oct, [facility] [address] [id number] [address] [place] [address] Oct, [facility] [address] [id number] [address] [place] [address], [place] [address] Oct, [facility] [address] [id number] [address] [place] [address], [place] [address] Oct, [facility] [address] [id number] [address] [place] [address], [place] [address] Oct, [facility] [address] [id number] [address] [place] [address], [place] [address] Oct, [facility] [address] [id number] [address] [place] [address], [place] [address] Oct, [facility] [address] [id number] [address] [place] [address], [place] [address] Sep, [facility] [address] [id number] [address] [place] [address], [place] [address] Sep, [facility] [address] [id number] [address] [place] [address], [place] [address] Sep, [facility] [address] [id number] [address] [place] [address], [place] [address] Sep, [facility] [address] [id number] [address] [place] [address], [place] [address] Sep, [facility] [address] [id number] [address] [place] [address], [place] [address] Sep, [facility] [address] [id number] [address] [place] [address], [place] [address] Sep, [facility] [address] [id number] [address] [place] [address], [place] [address] Sep, [facility] [address] [id number] [address] [place] [address], [place] [address] Sep, [facility] [address] [id number] [address] [place] [address], [place] [address] Aug, [facility] [address] [id number] [address] [place] [address], [place] [address] Aug, [facility] [address] [id number] [address] [place] [address], [place] [address] 17 Aug, 2013 [facility] [address] [id number] [address] [place] [address], [place] [address] 17 Aug, 2014 [facility] [address] [id number] [address] [place] [address], [place] [address] 16 Aug, 2013 [facility] [address] [id number] [address] [place] [address], [place] [address] Aug, [facility] [address] [id number] [address] [place] [address], [place] [address] Aug, [facility] [address] [id number] [address] [place] [address], [place] [address] Aug, [facility] [address] [id number] [address] [place] [address], [place] [address] Aug, [facility] [address] [id number] [address] [place] [address], [place] [address] 29 Jul, 2013 [facility] [address] [id number] [address] [place] [address], [place] [address] 29 Sep, 2013 [facility] [address] [id number] [address] [place] [address], [place] [address] 25 Sep, 2013 [facility] [address] [id number] [address] [place] [address], [place] [address] 25 Sep, 2013 [facility] [address] [id number] [address] [place] [address], [place] [address] 25 Sep, 2013 [facility] [address] [id number] [address] [place] [address], [place] [address] 25 Sep, 2013 [facility] [address] [id number] [address] [place] [address], [place] [address] 25 Jul, 2013 [facility] [address] [id number] [address] [place] [address], [place] [address] 25 Jul, 2013 [facility] [address] [id number] [address] [place] [address], [place] [address] Jul, [facility] [address] [id number] [facility] [place] [address] Jul, [facility] [address] [id number] [facility] [place] [address] Jun, [facility] [address] [id number] [facility] [place] [address] Jun, [facility] [address] [id number] [address] [place] [address], [place] [address] Jun, [facility] [address] [id number] [facility] [place] [address] Jun, [facility] [address] [id number] [address] [place] [address], [place] [address] Jun, [facility] [address] [id number] [address] [place] [address], [place] [address] Jun, [facility] [address] [id number] [address] [place] [address], [place] [address] Jun, [facility] [address] [id number] [address] [place] [address], [place] [address] Jun, [facility] [address] [id number] [address] [place] [address], [place] [address] Jun, [facility] [address] [id number] [address] [place] [address], [place] [address] Jun, [facility] [address] [id number] [address] [place] [address], [place] [address] Jun, [facility] [address] [id number] [address] [place] [address], [place] [address] Jun, [facility] [address] [id number] [address] [place] [address], [place] [address] May, [facility] [address] [id number] [address] [place] [address], [place] [address] May, [facility] [address] [id number] [facility] [place] [address] May, [facility] [address] [id number] [address] [place] [address], [place] [address] May, [facility] [address] [id number] [address] [place] [address], [place] [address] May, [facility] [address] [id number] [address] [place] [address], [place] [address] May, [facility] [address] [id number] [address] [place] [address], [place] [address] March, [facility] [address] [id number] [address] [place] [address], [place] [address] March, [facility] [address] [id number] [address] [place] [address], [place] [address] March, [facility] [address] [id number] [address] [place] [address], [place] [address] March, [facility] [address] [id number] [address] [place] [address], [place] [address] March, [facility] [address] [id number] [address] [place] [address], [place] [address] March, [facility] [address] [id number] [address] [place] [address], [place] [address] Feb, [facility] [address] [id number] [address] [place] [address], [place] [address] Feb, [facility] [address] [id number] [address] [place] [address], [place] [address] Feb, [facility] [address] [id number] [address] [place] [address], [place] [address] Feb, [facility] [address] [id number] [address] [place] [address], [place] [address] Jan, [facility] [address] [id number] [address] [place] [address], [place] [address] Jan, [facility] [address] [id number] [facility] [place] [address] Jan, [facility] [address] [id number] [facility] [place] [address] Jan, [facility] [address] [id number] [facility] [place] [address] Jan, [facility] [address] [id number] [address] [place] [address], [place] [address] Jan, [facility] [address] [id number] [address] [place] [address], [place] [address] Jan, [facility] [address] [id number] [address] [place] [address], [place] [address] Jan, [facility] [address] [id number] [address] [place] [address], [place] [address] Jan, [facility] [address] [id number] [address] [place] [address], [place] [address] Jan, [facility] [address] [id number] [address] [place] [address], [place] [address] Jan, [facility] [address] [id number] [address] [place] [address], [place] [address] Jan, [facility] [address] [id number] [address] [place] [address], [place] [address] Dec, [facility] [address] [id number] [address] [place] [address], [place] [address] Dec, [facility] [address] [id number] [address] [place] [address], [place] [address] Dec, [facility] [address] [id number] [address] [place] [address], [place] [address] Dec, [facility] [address] [id number] [address] [place] [address], [place] [address] Dec, [facility] [address] [id number] [address] [place] [address] Dec, [facility] [address] [id number] [address] [place] [address], [place] [address] Nov, [facility] [address] [id number] [address] [place] [address], [place] [address] Nov, [facility] [address] [id number] [address] [place] [address], [place] [address] Oct, [facility] [address] [id number] [address] [place] [address], [place] [address] Oct, [facility] [address] [id number] [address] [place] [address], [place] [address] Oct, [facility] [address] [id number] [address] [place] [address], [place] [address] Oct, [facility] [address] [id number] [address] [place] [address], [place] [address] Oct, [facility] [address] [id number] [address] [place] [address], [place] [address] Oct, [facility] [address] [id number] [address] [place] [address], [place] [address] Sep, [facility] [address] [id number] [address] [place] [address], [place] [address] Sep, [facility] [address] [id number] [address] [place] [address], [place] [address] Sep, [facility] [address] [id number] [address] [place] [address], [place] [address] Sep, [facility] [address] [id number] [address] [place] [address], [place] [address] Aug, [facility] [address] [id number] [address] [place] [address], [place] [address] Aug, [facility] [address] [id number] [address] [place] [address] Aug, [facility] [address] [id number] [address] [place] [address], [place] [address] 17 Jul, 2013 [facility] [address] [id number] [address] [place] [address], [place] [address] 14 Jul, 2013 [facility] [address] [id number] [address] [place] [address], [place] [address] 04 Jul, 2013 [facility] [address] [id number] [address] [place] [address], [place] [address] Jun, [facility] [address] [id number] [address] [place] [address], [place] [address] Jun, [facility] [address] [id number] [address] [place] [address], [place] [address] Jun, [facility] [address] [id number] [address] [place] [address], [place] [address] Apr, [facility] [address] [id number] [address] [place] [address], [place] [address] Apr, [facility] [address] [id number] [address] [place] [address], [place] [address] March, [facility] [address] [id number] [address] [place] [address], [place] [address] March, [facility] [address] [id number] [address] [place] [address], [place] [address] March, [facility] [address] [id number] [address] [place] [address], [place] [address] March, [facility] [address] [id number] [address] [place] [address], [place] [address] Feb, [facility] [address] [id number] [address] [place] [address], [place] [address] Jan, [facility] [address] [id number] [address] [place] [address], [place] [address] Dec, [facility] [address] [id number] [address] [place] [address], [place] [address] 08 Dec, 2012 [facility] [address] [id number] [address] [place] [address], [place] [address] Dec, [facility] [address] [id number] [address] [place] [address], [place] [address] Nov, [facility] [address] [id number] [address] [place] [address], [place] [address] Oct, [facility] [address] [id number] [address] [place] [address], [place] [address] Oct, [facility] [address] [id number] [address] [place] [address], [place] [address] Sep, [facility] [address] [id number] [address] [place] [address], [place] [address] Sep, [facility] [address] [id number] [address] [place] [address], [place] [address] Sep, [facility] [address] [id number] [address] [place] [address], [place] [address] Sep, [facility] [address] [id number] [address] [place] [address], [place] [address] Sep, [facility] [address] [id number] [address] [place] [address], [place] [address] Sep, [facility] [address] [id number] [address] [place] [address], [place] [address] Sep, [facility] [address] [id number] [address] [place] [address], [place] [address] Aug, [facility] [address] [id number] [address] [place] [address], [place] [address] Aug, [facility] [address] [id number] [address] [place] [address], [place] [address] Aug, [facility] [address] [id number] [address] [place] [address], [place] [address] Aug, [facility] [address] [id number] [address] [place] [address], [place] [address] 08 Aug, 2012 [facility] [address] [id number] [address] [place] [address], [place] [address] 08 Aug, 2012 [facility] [address] [id number] [address] [place] [address], [place] [address] Aug, [facility] [address] [id number] [address] [place] [address], [place] [address] Aug, [facility] [address] [id number] [address] [place] [address], [place] [address] Jul, [facility] [address] [id number] [address] [place] [address], [place] [address] Jul, [facility] [address] [id number] [address] [place] [address], [place] [address] Jun, [facility] [address] [id number] [address] [place] [address], [place] [address] May, [facility] [address] [id number] [address] [place] [address], [place] [address] Apr, [facility] [address] [id number] [address] [place] [address], [place] [address] Apr, [facility] [address] [id number] [address] [place] [address], [place] [address] Apr, [facility] [address] [id number] [address] [place] [address], [place] [address] March, [facility] [address] [id number] [address] [place] [address], [place] [address] March, [facility] [address] [id number] [address] [place] [address], [place] [address] March, [facility] [address] [id number] [address] [place] [address], [place] [address] March, [facility] [address] [id number] [address] [place] [address], [place] [address] March, [facility] [address] [id number] [address] [place] [address], [place] [address] March, [facility] [address] [id number] [address] [place] [address], [place] [address] March, [facility] [address] [id number] [address] [place] [address], [place] [address] Jan, [facility] [address] [id number] [address] [place] [address], [place] [address] Jan, [facility] [address] [id number] [address] [place] [address], [place] [address] Jan, [facility] [address] [id number] [address] [place] [address], [place] [address] Jan, [facility] [address] [id number] [address] [place] [address], [place] [address] Jan, [facility] [address] [id number] [address] [place] [address], [place] [address] Dec, [facility] [address] [id number] [address] [place] [address], [place] [address] Dec, [facility] [address] [id number] [address] [place] [address], [place] [address] Nov, [facility] [address] [id number] [address] [place] [address], [place] [address] Nov, [facility] [address] [id number] [address] [place] [address], [place] [address] Nov, [facility] [address] [id number] [address] [place] [address], [place] [address] Nov, [facility] [address] [id number] [address] [place] [address], [place] [address] Oct, [facility] [address] [id number] [address] [place] [address], [place] [address] Oct, [facility] [address] [id number] [address] [place] [address], [place] [address] 14 Sep, 2011 [facility] [address] [id number] [address] [place] [address], [place] [address] 10 Sep, 2011 [facility] [address] [id number] [address] [place] [address], [place] [address] 10 Sep, 2011 [facility] [address] [id number] [address] [place] [address], [place] [address] 11 May, 2011 [facility] [address] [id number] [address] [place] [address], [place] [address] 20 Nov, 2010 [facility] [address] [id number] [address] [place] [address], [place] [address] 29 Oct, 2010 [facility] [address] [id number] [address] [place] [address], [place] [address] 14 Oct, 2010 [facility] [address] [id number] [address] [place] [address], [place] [address] 08 Oct, 2010 [facility] [address] [id number] [address] [place] [address], [place] [address] 15 Sep, 2010 [facility] [address] [id number] [address] [place] [address], [place] [id number] 02 Sep, 2010 [facility] [address] [id number] [address] [place] [address], [place] [address] Aug, [facility] [address] [id number] [address] [place] [address], [place] [address] March, [facility] [address] [id number] [address] [place] [address], [place] [id number] 17 Oct, 2009 [facility] [address] [id number] [address] [place] [address], [place] [address] Oct, [facility] [address] [id number] [address] [place] [address], [place] [address] Oct, [facility] [address] [id number] [address] [place] [address], [place] [address] Oct, [facility] [address] [facility] [facility] [id number] [address] [place] [id number] Sep, [facility] [address] [facility] [id number] [address] [place] [id number] Sep, [facility] [address] [facility] [id number] [address] [place] [id number] Sep, [facility] [address] [facility] [id number] [address] [place] [id number] Aug, [facility] [address] [facility] [id number] [address] [place] [id number] Aug, [facility] [address] [facility] [id number] [address] [place] [id number] Aug, [facility] [address] [address] [facility] [id number] [address] [place] [id number] Jan, IMMUNIZATIONS No Known Immunizations SOCIAL HISTORY Never Assessed REASON FOR VISIT Medication question PLAN OF CARE VITAL SIGNS MEDICATIONS No [...]
[2020-06-13] MEDS ORDERED: NS IV 1000 ML 1,000 ML IV STA (16:23)
[2020-06-13] MEDS ORDERED: FAMOTIDINE 20MG/2ML IV (PEPCID) IV STA (16:23)
--- OUTSIDE RECORDS SUMMARY | 2020-06-13 16:23 | XMS REPORT ---
Author Author Jah PARKER Organization [facility] Address [address] [place] [address] Care Team Providers Care Supervisor Rose Grading Name Role Phone PARKERPATRICIA Mckeon Unavailable PROBLEMS Type Condition ICD9-CM Code MHY76-RG Code Onset Dates Condition S tatus SNOMED Code Problem Type 2 diabetes mellitus with hyperglycemia E11.65 Active 87568098 Problem Pulmonary emphysema, unspecified emphysema type J4 3.9 Active 81466137 Problem Essential (primary) hypertension I10 Active 94895374 Problem Hypertriglyceridemia E78.1 Active 623071599 Problem Major depressive disorder, recurrent episode, moderate F33.1 Active 282927269 Problem Recurrent major depressive disorder, in partial remission F33.41 Active 55833308 Problem Current non-adherence to medical treatment Z91.19 Active 3830066 Problem Anxiety disorder, unspecified type F41.9 Active 983488532 Problem Chronic fatigue R53.82 Active 8422 9001 Problem Chronic pain G89.29 Active 2656351 1 Problem Neuropathy G62.9 Active 289787164 Problem Thrombocytosis D47.3 Active 98713 09 Problem Mixed hyperlipidemia E78.2 Active 814352896 Problem Gastroesophageal reflux disease with esophagitis K 21.0 Active 559752992 Problem Hypothyroid E03.9 Active 04245656 Problem Irritable bowel syndrome with diarrhea K58.0 Active 986458314 Problem Overactive bladder N32.81 Active 2 54052235 Problem 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.4 Active 782479299 ALLERGIES Substance Reaction Event Type Date Status Trilipix nausea Drug Allergy May, Active Niacin rash Drug Allergy May, Active Metformin HCl diarrhea Drug Allergy May, Active Januvia diarrhea Drug Allergy May, Active Gemfibrozil diarrhea Drug Allergy May, Active Actos diarrhea Drug Allergy May, Active ENCOUNTERS Encounter Location Date Diagnosis [facility] [address] [facility] [id number] [address] [address] Jun, Type 2 diabetes mellitus wit h hyperglycemia E11.65 ; Neuropathy G62.9 ; Recurrent major depressive disorder, in partial remission F33.41 ; Chronic pain G89.29 and Hypertriglyceridemia E78.1 [facility] [address] [facility] [id number] [address] [place] [id number] Jun, Hypothyroid E03.9 [facility] [address] [facility] [id number] [address] [place] [id number] Jun, Major depressive disorder, r ecurrent episode, moderate F33.1 and Anxiety disorder, unspecified type F41.9 [facility] [address] [facility] [id number] [address] [place] [id number] Jun, [facility] [address] [facility] [id number] [address] [place] [id number] Jun, Type 2 diabetes mellitus wit h hyperglycemia E11.65 ; 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.4 ; Recurrent major depressive disorder, in partial remission F33.41 ; Hypothyroid E03.9 ; Candidal dermatitis B37.2 and Weakness generalized R53.1 [facility] [address] [facility] [id number] [address] [place] [id number] May, [facility] [address] [facility] [id number] [address] [place] [id number] May, [facility] [address] [facility] [id number] [address] [place] [id number] May, [facility] [address] [facility] [id number] [address] [place] [id number] May, Generalized abdominal pain R 10.84 and Candidal dermatitis B37.2 [facility] [address] [facility] [id number] [address] [place] [id number] May, [facility] [address] [facility] [id number] [address] [place] [id number] May, [facility] [address] [facility] [id number] [address] [place] [id number] May, Nodular radiologic density R 93.8 ; Weight loss, unintentional R63.4 and Pulmonary emphysema, unspecified emphysema type J43.9 [facility] [address] [id number] [address] [place] [id number] 10 May, 2018 Chronic pain G89.29 [facility] [address] [id number] [address] [place] [id number] 09 May, 2018 Syncope and collapse R55 ; C hronic fatigue R53.[address] lung screening R91.8 [facility] [address] [id number] [address] [place] [id number] May, [facility] [address] [facility] [id number] [address] [place] [id number] Apr, Chronic fatigue R53.82 ; Abn ormal chest CT R93.8 ; Elevated erythrocyte sedimentation rate R70.0 ; Hypothyroid E03.9 and Recurrent major depressive disorder, in partial remission F33.41 [place] [address] [id number] [address] [place] [id number] Apr, Hypothyroid E03.9 [facility] [address] [id number] [address] [place] [id number] Apr, Depression F32.9 [facility] [address] [id number] [address] [place] [id number] Apr, [facility] [address] [id number] [address] [place] [id number] March, [facility] [address] [id number] [address] [place] [address] March, Hypothyroid E03.9 [facility] [address] [id number] [address] [place] [id number] March, Diabetes mellitus E11.9 and Hypothyroid E03.9 [facility] [address] [facility] [id number] [address] [place] [id number] March, Diabetes mellitus E11.9 [facility] [address] [place] [id number] [address] [place] [id number] March, Hypothyroid E03.9 and Elevat ed liver enzymes R74.8 [place] [id number] [address] [place] [id number] March, Type 2 diabetes mellitus wit h [...] major depressive disorder, in partial remission F33.41 [place] [id number] [address] [place] [address] Feb, Chronic pain G89.[address] [id number] Feb, Type 2 diabetes mellitus wit h hyperglycemia E11.65 and Skin lesion of scalp L98.9 [place] [id number] [address] [place] [id number] Feb, [place] [id number] [address] [place] [id number] Jan, Type 2 diabetes mellitus wit h [...] bowel syndrome with diarrhea K58.0 [place] [address] [place] [id number] [address] [place] [id number] Jan, [place] [id number] [address] [place] [id number] Jan, Controlled substance agreeme nt signed Z79.899 [facility] [address] [id number] [address] [place] [id number] 08 Dec, 2017 Type 2 diabetes mellitus wit h hyperglycemia E11.65 ; Controlled substance agreement signed Z79.899 ; 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 Z79.4 ; Essential (primary) hypertension I10 ; Hypothyroid E03.9 ; Neuropathy G62.9 ; Depression F32.9 ; Mixed hyperlipidemia E78.2 ; Irritable bowel syndrome with diarrhea K58.0 ; Gastroesophageal reflux disease with esophagitis K21.0 ; Thrombocytosis D47.3 ; Current non-adherence to medical treatment Z91.19 and Overweight (BMI 25.0-29.9) E66.3 [place] [address] [facility] [id number] [address] [place] [id number] 02 Dec, 2017 Controlled substance agreeme nt signed Z79.899 [place] [address] [facility] [id number] [address] [place] [id number] Nov, Type 2 diabetes mellitus wit h hyperglycemia E11.65 and Current non- adherence to medical treatment Z91.19 [place] [address] [id number] [address] [place] [id number] Nov, [place] [address] [facility] [id number] [address] [place] [id number] Nov, Chronic pain G89.29 [place] [address] [facility] [id number] [address] [place] [id number] Nov, [place] [address] [facility] [id number] [address] [place] [id number] Nov, Hypothyroid E03.9 [place] [address] [facility] [id number] [address] [place] [id number] Nov, Hypothyroid E03.9 [place] [address] [facility] [id number] [address] [place] [id number] Nov, Pulmonary emphysema, unspeci fied emphysema type J43.9 and Irritable bowel syndrome with diarrhea K58.0 [place] [address] [facility] [id number] [address] [place] [id number] Oct, [place] [address] [facility] [id number] [address] [place] [id number] Oct, [place] [address] [facility] [id number] [address] [place] [id number] Oct, [place] [address] [facility] [id number] [address] [place] [id number] Oct, [place] [address] [facility] [id number] [address] [place] [id number] Oct, Chronic pain G89.29 [place] [address] [place] [id number] [place] [id number] Oct, Diabetes mellitus E11.9 ; De pression F32.9 ; Mixed hyperlipidemia E78.2 ; Hypotension, unspecified hypotension type I95.9 ; Pulmonary emphysema, unspecified emphysema type J43.9 and Weight loss, unintentional R63.4 [place] [address] [place] [id number] [address] [place] [id number] Oct, Chronic pain G89.29 [place] [address] [place] [id number] [address] [place] [id number] Sep, Chronic pain G89.29 [place] [address] [place] [id number] [address] [place] [id number] Sep, Hypothyroid E03.9 and Diabet es mellitus E11.9 [place] [address] [place] [id number] [address] [place] [id number] Aug, Type 2 diabetes mellitus wit h hyperglycemia E11.65 ; 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 Z79.4 ; Essential (primary) hypertension I10 ; Hypothyroid E03.9 ; Neuropathy G62.9 ; Chronic pain G89.29 ; Mixed hy perlipidemia E78.2 and Encounter for immunization Z23 [place] [address] [facility] [id number] [address] [place] [id number] Aug, Chronic pain G89.29 [facility] [address] [id number] [address] [place] [id number] Aug, Overactive bladder N32.81 ; Diabetes mellitus E11.9 and Chronic pain G89.29 [facility] [address] [id number] [address] [place] [id number] Jul, [facility] [address] [facility] [id number] [address] [place] [id number] Jun, [facility] [address] [id number] [address] [place] [id number] Jun, [facility] [address] [facility] [id number] [address] [place] [id number] Jun, Hypothyroid E03.9 [facility] [address] [facility] [id number] [address] [place] [id number] Jun, Diabetes mellitus E11.9 ; Hy pothyroid E03.9 ; Neuropathy G62.9 ; Chronic pain G89.29 and Neck mass R22.1 [facility] [address] [facility] [id number] [address] [place] [id number] Apr, [facility] [address] [facility] [id number] [address] [place] [id number] Apr, Acute cystitis without hemat uria N30.00 [facility] [address] [facility] [id number] [address] [place] [id number] March, [facility] [address] [facility] [id number] [address] [place] [id number] March, [facility] [address] [facility] [id number] [address] [place] [id number] March, Near syncope R55 [facility] [address] [facility] [id number] [address] [place] [id number] Feb, [facility] [address] [facility] [id number] [address] [place] [id number] Feb, Chronic pain G89.29 [facility] [address] [facility] [id number] [address] [place] [id number] Feb, [facility] [address] [place] [id number] [address] [place] [id number] Feb, [facility] [address] [facility] [id number] [address] [place] [id number] Jan, Chronic pain G89.29 [facility] [address] [place] [id number] [address] [place] [id number] Jan, [facility] [address] [place] [id number] [address] [place] [id number] Jan, [facility] [address] [place] [id number] [address] [place] [address] Jan, Diabetes mellitus E11.9 ; Hy pothyroid E03.9 ; GERD (gastroesophageal reflux disease) K21.9 ; Insomnia G47.00 ; Functional diarrhea K59.1 ; Neuropathy G62.9 ; Depression F32.9 ; Chronic pain G89.29 ; Irritable bowel syndrome with diarrhea K58.0 ; Overactive bladder N32.81 ; Mixed hyperlipidemia E78.2 and Bronchitis J40 [facility] [address] [place] [id number] [address] [place] [id number] Dec, [facility] [address] [place] [id number] [address] [place] [id number] Dec, [facility] [id number] [place] [id number] Dec, [facility] [address] [facility] [id number] [address] [place] [id number] Dec, [facility] [address] [place] [id number] [address] [place] [address] Dec, Chronic pain G89.29 [facility] [address] [place] [id number] [address] [place] [id number] Dec, [facility] [address] [place] [id number] [address] [place] [id number] Dec, [place] [address] [id number] Dec, Type 2 diabetes mellitus wit h foot ulcer E11.621 [place] [address] [id number] 17 Dec, 2016 Type 2 diabetes mellitus wit h foot ulcer E11.621 [place] [address] [id number] 14 Dec, 2016 HTN (hypertension) I10 ; Dep ression F32.9 ; Type 2 diabetes mellitus with foot ulcer E11.621 ; Functional diarrhea K59.1 ; Irritable bowel syndrome with diarrhea K58.0 ; Chronic pain G89.29 ; Insomnia G47.00 ; Overactive bladder N32.81 ; Mixed hyperlipidemia E78.2 ; Gastroesophageal reflux disease with esophagitis K21.0 and Acquired hypothyroidism E03.9 [place] [address] [id number] Nov, [place] [address] [address] Oct, [place] [address] [id number] Oct, [place] [address] [address] Oct, [place] [address] [address] Sep, Functional diarrhea K59.1 ; HTN (hypertension) I10 ; Diabetes mellitus E11.9 ; Depression F32.9 ; Overactive bladder N32.81 ; Mixed hyperlipidemia E78.2 ; Gastroesophageal reflux disease without esophagitis K21.9 ; Chronic pain G89.29 ; Insomnia G47.00 and Acquired hypothyroidism E03.9 [place] [address] [address] Sep, [place] [address] [id number] 11 Aug, 2016 Encounter for immunization Z 23 [place] [address] [id number] 06 Aug, 2016 [place] [address] [address] Jul, [place] [address] [id number] Jun, Type 2 diabetes mellitus wit hout complications E11.9 ; HTN (hypertension) I10 ; Hypothyroid E03.9 ; Neuropathy G62.9 ; Depression F32.9 ; Chronic pain G89.29 ; GERD (gastroesophageal reflux disease) K21.9 ; Insomnia G47.00 ; Overactive bladder N32.81 ; Mixed hyperlipidemia E78.2 ; Diarrhea of infectious origin A09 and Environmental allergies Z91.09 [place] [address] [address] Apr, [place] [address] [address] March, Hypothyroidism, unspecified E03.9 and Mixed hyperlipidemia E78.2 [place] [address] [address] March, Diabetes mellitus E11.9 ; HT N (hypertension) I10 ; Hypothyroid E03.9 ; Depression F32.9 ; Overactive bladder N32.81 ; Other chronic pain G89.29 ; Lumbago with sciatica, unspecified side M54.40 ; Environmental allergies Z91.09 and Gastroesophageal reflux disease, esophagitis presence not specified K21.9 [place] [address] [address] March, [place] [address] [address] Jan, HTN (hypertension) I10 ; Hyp othyroid E03.9 ; Neuropathy G62.9 ; Diabetes mellitus E11.9 ; Chronic pain G89.29 ; GERD (gastroesophageal reflux disease) K21.9 ; Overactive bladder N32.81 and Depression F32.9 [place] [address] [place] [address] 12 Dec, 2015 Ear pain, left H92.02 ; HTN (hypertension) I10 ; Hypothyroid E03.9 ; Neuropathy G62.9 ; Diabetes mellitus E11.9 ; Depression F32.9 ; GERD (gastroesophageal reflux disease) K21.9 ; Insomnia G47.00 and Overactive bladder N32.81 [place] [address] [place] [id number] [address] [place] [id number] Nov, Overactive bladder N32.81 an d Chronic pain G89.29 [place] [address] [place] [id number] [address] [place] [id number] Nov, Kidney failure N19 [place] [address] [address] Nov, [place] [address] [place] [id number] [address] [place] [id number] Nov, [place] [address] [address] Nov, Diabetes mellitus E11.9 ; De pression F32.9 ; Chronic pain G89.29 ; GERD (gastroesophageal reflux disease) K21.9 ; Insomnia G47.00 ; HTN (hypertension) I10 ; Hypothyroid E03.9 ; COPD (chronic obstructive pulmonary disease) J44.9 ; Bladder incontinence R32 and Incontinence R32 [place] [address] [place] [id number] [address] [place] [id number] Sep, Type 2 diabetes mellitus wit h foot ulcer E11.621 and Chromosomal abnormality, 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 [place] [address] [place] [id number] [address] [place] [id number] Sep, [place] [address] [place] [id number] [place] [address] Aug, [address] [address] Aug, [address] [address] Aug, HTN (hypertension) I10 ; Enc ounter for immunization Z23 ; Hypothyroid E03.9 ; Neuropathy G62.9 ; Diabetes mellitus E11.9 ; Depression F32.9 ; Chronic pain G89.29 ; GERD (gastroesophageal reflux disease) K21.9 ; Insomnia G47.00 and COPD (chronic obstructive pulmonary disease) J44.[address] [address] Jun, [address] [address] Jun, [address] [address] May, Essential hypertension, ivis gn 401.1 ; Unspecified hypothyroidism 244.9 ; Insomnia, unspecified 780.52 ; Shortness of breath 786.05 ; Depression 311 ; COPD (chronic obstructive pulmonary disease) 496 ; GERD (gastroesophageal reflux disease) 530.81 and Diabetes 1.5, 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 [address] May, [address] [address] May, [address] [address] May, Shortness of breath 786.05 ; Essential hypertension, benign 401.1 ; Diabetes mellitus 250.00 ; Hyperlipidemia 272.4 ; Hypothyroid 244.9 ; Insomnia 780.52 and Cough 786.[address] [address] Apr, [address] [address] March, Shortness of breath 786.05 ; Nausea with vomiting 787.01 ; Essential hypertension, benign 401.1 ; Diabetes mellitus 250.00 ; Hyperlipidemia 272.4 and Hypothyroid 244.9 [facility] [address] [id number] [address] [place] [id number] 14 Feb, 2015 [facility] [address] [id number] [address] [place] [id number] Feb, [facility] [address] [id number] [address] [place] [id number] Jan, [facility] [address] [id number] [address] [place] [id number] Jan, [facility] [address] [id number] [address] [place] [id number] Jan, [facility] [address] [id number] [address] [place] [id number] Jan, [facility] [address] [id number] [address] [place] [id number] Jan, [facility] [address] [id number] [address] [place] [id number] Jan, [facility] [address] [facility] [id number] [address] [place] [id number] Jan, [facility] [address] [id number] [address] [place] [id number] Jan, [facility] [address] [id number] [address] [place] [id number] Jan, [facility] [address] [id number] [address] [place] [id number] Jan, [facility] [address] [id number] [address] [place] [id number] Dec, [facility] [address] [id number] [address] [place] [id number] Dec, [facility] [address] [id number] [address] [place] [address], [place] [address] Dec, 2014 [facility] [address] [id number] [address] [place] [address], [place] [address] Dec, 2014 [facility] [address] [id number] [address] [place] [address], [place] [address] Dec, 2014 [facility] [address] [id number] [address] [place] [address], [place] [address] Dec, 2014 [facility] [address] [id number] [address] [place] [address], [place] [address] Dec, 2014 [facility] [address] [id number] [address] [place] [address], [place] [address] Dec, 2014 [facility] [address] [id number] [address] [place] [address], [place] [address] Dec, 2014 [facility] [address] [id number] [address] [place] [address], [place] [address] Dec, 2014 [facility] [address] [id number] [address] [place] [address], [place] [address] Oct, [facility] [address] [id number] [address] [place] [address], [place] [address] Oct, [facility] [address] [id number] [address] [place] [address], [place] [address] Oct, [facility] [address] [id number] [address] [place] [address], [place] [address] Oct, [facility] [address] [id number] [address] [place] [address], [place] [address] Oct, [facility] [address] [id number] [address] [place] [address], [place] [address] Oct, [facility] [address] [id number] [address] [place] [address], [place] [address] Oct, [facility] [address] [id number] [address] [place] [address], [place] [address] 05 Oct, 2014 [facility] [address] [id number] [address] [place] [address], [place] [address] Oct, [facility] [address] [id number] [address] [place] [address], [place] [address] Oct, [facility] [address] [id number] [address] [place] [address], [place] [address] Oct, [facility] [address] [id number] [address] [place] [address], [place] [address] Oct, [facility] [address] [id number] [address] [place] [address], [place] [address] Oct, [facility] [address] [id number] [address] [place] [address], [place] [address] Oct, [facility] [address] [id number] [address] [place] [address], [place] [address] Sep, [facility] [address] [id number] [address] [place] [address], [place] [address] Sep, [facility] [address] [id number] [address] [place] [address], [place] [address] Sep, [facility] [address] [id number] [address] [place] [address], [place] [address] Sep, [facility] [address] [id number] [address] [place] [address], [place] [address] Sep, [facility] [address] [id number] [place] [address], [place] [address] Sep, [facility] [address] [id number] [address] [place] [address], [place] [address] Sep, [facility] [address] [id number] [address] [place] [address], [place] [address] Sep, [facility] [address] [id number] [address] [place] [address], [place] [address] Sep, [facility] [address] [id number] [address] [place] [address], [place] [address] Aug, [facility] [address] [id number] [address] [place] [address], [place] [address] Aug, [facility] [address] [id number] [address] [place] [address], [place] [address] Aug, [facility] [address] [id number] [address] [place] [address], [place] [address] Aug, [facility] [address] [id number] [address] [place] [address], [place] [address] 16 Aug, 2014 [facility] [address] [id number] [address] [place] [address], [place] [address] Aug, [facility] [address] [id number] [address] [place] [address], [place] [address] Aug, [facility] [address] [id number] [address] [place] [address], [place] [address] Aug, [facility] [address] [id number] [address] [place] [address], [place] [address] Aug, [facility] [address] [id number] [address] [place] [address], [place] [address] 29 Jul, 2014 [facility] [address] [id number] [address] [place] [address], [place] [address] 29 Jul, 2014 [facility] [address] [id number] [address] [place] [address], [place] [address] 25 Jul, 2013 [facility] [address] [id number] [address] [place] [address], [place] [address] 25 Jul, 2014 [facility] [address] [id number] [address] [place] [address], [place] [address] 25 Jul, 2013 [facility] [address] [id number] [address] [place] [address], [place] [address] 25 Jul, 2014 [facility] [address] [id number] [address] [place] [address], [place] [address] Jul, [facility] [address] [id number] [facility] [place] [address] Jul, [facility] [address] [id number] [address] [place] [address], [place] [address] Jul, [facility] [address] [id number] [address] [place] [address], [place] [address] Jul, [facility] [address] [id number] [address] [place] [address], [place] [address] Jun, [facility] [address] [id number] [address] [place] [address], [place] [address] Jun, [facility] [address] [id number] [address] [place] [address], [place] [address] Jun, [facility] [address] [id number] [address] [place] [address], [place] [address] Jun, [facility] [address] [id number] [address] [place] [address], [place] [address] Jun, [facility] [address] [id number] [address] [place] [address], [place] [address] Jun, [facility] [address] [id number] [address] [place] [address], [place] [address] Jun, [facility] [address] [id number] [address] [place] [address], [place] [address] Jun, [facility] [address] [id number] [address] [place] [address], [place] [address] Jun, [facility] [address] [id number] [address] [place] [address], [place] [address] Jun, [facility] [address] [id number] [address] [place] [address], [place] [address] Jun, [facility] [address] [id number] [address] [place] [address], [place] [address] Jun, [facility] [address] [id number] [facility] [place] [address] May, [facility] [address] [id number] [facility] [place] [address] May, [facility] [address] [id number] [facility] [place] [address] May, [facility] [address] [id number] [address] [place] [address], [place] [address] May, [facility] [address] [id number] [address] [place] [address], [place] [address] May, [facility] [address] [id number] [address] [place] [address], [place] [address] May, [facility] [address] [id number] [address] [place] [address], [place] [address] March, [facility] [address] [id number] [address] [place] [address], [place] [address] March, [facility] [address] [id number] [address] [place] [address], [place] [address] March, [facility] [address] [id number] [address] [place] [address], [place] [address] March, [facility] [address] [id number] [address] [place] [address], [place] [address] March, [facility] [address] [id number] [address] [place] [address], [place] [address] March, [facility] [address] [id number] [address] [place] [address], [place] [address] Feb, [facility] [address] [id number] [address] [place] [address], [place] [address] Feb, [facility] [address] [id number] [address] [place] [address], [place] [address] Feb, [facility] [address] [id number] [address] [place] [address], [place] [address] Feb, [facility] [address] [id number] [facility] [place] [address] Jan, [facility] [address] [id number] [address] [place] [address], [place] [address] Jan, [facility] [address] [id number] [address] [place] [address], [place] [address] Jan, [facility] [address] [id number] [address] [place] [address], [place] [address] Jan, [facility] [address] [id number] [address] [place] [address], [place] [address] Jan, [facility] [address] [id number] [address] [place] [address], [place] [address] Jan, [facility] [address] [id number] [address] [place] [address], [place] [address] Jan, [facility] [address] [id number] [address] [place] [address], [place] [address] Jan, [facility] [address] [id number] [address] [place] [address], [place] [address] Jan, [facility] [address] [id number] [address] [place] [address], [place] [address] Jan, [facility] [address] [id number] [address] [place] [address], [place] [address] Jan, [facility] [address] [id number] [address] [place] [address], [place] [address] Jan, [facility] [address] [id number] [address] [place] [address], [place] [address] Dec, [facility] [address] [id number] [address] [place] [address], [place] [address] Dec, [facility] [address] [id number] [address] [place] [address], [place] [address] Dec, [facility] [address] [id number] [address] [place] [address], [place] [address] Dec, [facility] [address] [id number] [address] [place] [address], [place] [address] Dec, [facility] [address] [id number] [address] [place] [address], [place] [address] Dec, [facility] [address] [id number] [address] [place] [address], [place] [address] Nov, [facility] [address] [id number] [address] [place] [address], [place] [address] Nov, [facility] [address] [id number] [address] [place] [address], [place] [address] Oct, [facility] [address] [id number] [address] [place] [address], [place] [address] Oct, [facility] [address] [id number] [address] [place] [address], [place] [address] Oct, [facility] [address] [id number] [address] [place] [address], [place] [address] Oct, [facility] [address] [id number] [address] [place] [address], [place] [address] Oct, [facility] [address] [id number] [address] [place] [address], [place] [address] Oct, [facility] [address] [id number] [address] [place] [address], [place] [address] Sep, [facility] [address] [id number] [address] [place] [address], [place] [address] Sep, [facility] [address] [id number] [address] [place] [address], [place] [address] Sep, [facility] [address] [id number] [address] [place] [address], [place] [address] Sep, [facility] [address] [id number] [address] [place] [address], [place] [address] Aug, [facility] [address] [id number] [address] [place] [address], [place] [address] Aug, [facility] [address] [id number] [address] [place] [address], [place] [address] Aug, [facility] [address] [id number] [address] [place] [address], [place] [address] 17 Jul, 2013 [facility] [address] [id number] [address] [place] [address], [place] [address] 14 Jul, 2013 [facility] [address] [id number] [address] [place] [address], [place] [address] Jul, [facility] [address] [id number] [address] [place] [address], [place] [address] Jun, [facility] [address] [id number] [address] [place] [address], [place] [address] Jun, [facility] [address] [id number] [address] [place] [address], [place] [address] Jun, [facility] [address] [id number] [address] [place] [address], [place] [address] Apr, [facility] [address] [id number] [address] [place] [address], [place] [address] Apr, [facility] [address] [id number] [address] [place] [address], [place] [address] March, [facility] [address] [id number] [address] [place] [address], [place] [address] March, [facility] [address] [id number] [address] [place] [address], [place] [address] March, [facility] [address] [id number] [address] [place] [address], [place] [address] March, [facility] [address] [id number] [address] [place] [address], [place] [address] Feb, [facility] [address] [id number] [address] [place] [address] Jan, [facility] [address] [id number] [address] [place] [address], [place] [address] 13 Dec, 2012 [facility] [address] [id number] [address] [place] [address], [place] [address] 08 Dec, 2012 [facility] [address] [id number] [address] [place] [address], [place] [address] Dec, [facility] [address] [id number] [address] [place] [address], [place] [address] Nov, [facility] [address] [id number] [address] [place] [address], [place] [address] Oct, [facility] [address] [id number] [address] [place] [address], [place] [address] Oct, [facility] [address] [id number] [address] [place] [address], [place] [address] Sep, [facility] [address] [id number] [address] [place] [address], [place] [address] Sep, [facility] [address] [id number] [address] [place] [address], [place] [address] Sep, [facility] [address] [id number] [address] [place] [address], [place] [address] Sep, [facility] [address] [id number] [address] [place] [address], [place] [address] Sep, [facility] [address] [id number] [address] [place] [address] Sep, [facility] [address] [id number] [address] [place] [address], [place] [address] Sep, [facility] [address] [id number] [address] [place] [address], [place] [address] Aug, [facility] [address] [id number] [address] [place] [address] Aug, [facility] [address] [id number] [address] [place] [address], [place] [address] 10 Aug, 2012 [facility] [address] [id number] [address] [place] [address], [place] [address] Aug, [facility] [address] [id number] [address] [place] [address], [place] [address] 08 Aug, 2012 [facility] [address] [id number] [address] [place] [address], [place] [address] 08 Aug, 2012 [facility] [address] [id number] [address] [place] [address], [place] [address] Aug, [facility] [address] [id number] [address] [place] [address], [place] [address] Aug, [facility] [address] [id number] [address] [place] [address], [place] [address] Jul, [facility] [address] [id number] [address] [place] [address], [place] [address] Jul, [facility] [address] [id number] [address] [place] [address], [place] [address] Jun, [facility] [address] [id number] [address] [place] [address], [place] [address] May, [facility] [address] [id number] [address] [place] [address], [place] [address] Apr, [facility] [address] [id number] [address] [place] [address], [place] [address] Apr, [facility] [address] [id number] [address] [place] [address], [place] [address] Apr, [facility] [address] [id number] [address] [place] [address], [place] [address] March, [facility] [address] [id number] [address] [place] [address], [place] [address] March, [facility] [address] [id number] [address] [place] [address], [place] [address] March, [facility] [address] [id number] [address] [place] [address], [place] [address] March, [facility] [address] [id number] [address] [place] [address], [place] [address] March, [facility] [address] [id number] [address] [place] [address], [place] [address] March, [facility] [address] [id number] [address] [place] [address], [place] [address] March, [facility] [address] [id number] [address] [place] [address], [place] [address] Jan, [facility] [address] [id number] [address] [place] [address], [place] [address] Jan, [facility] [address] [id number] [address] [place] [address], [place] [address] Jan, [facility] [address] [id number] [address] [place] [address], [place] [address] Jan, [facility] [address] [id number] [address] [place] [address], [place] [address] Jan, [facility] [address] [id number] [address] [place] [address], [place] [address] Dec, [facility] [address] [id number] [address] [place] [address], [place] [address] Dec, [facility] [address] [id number] [address] [place] [address], [place] [address] Nov, [facility] [address] [id number] [address] [place] [address], [place] [address] Nov, [facility] [address] [id number] [address] [place] [address], [place] [address] Nov, [facility] [address] [id number] [address] [place] [address], [place] [address] Nov, [facility] [address] [id number] [address] [place] [address], [place] [address] 21 Oct, 2011 [facility] [address] [id number] [address] [place] [address], [place] [address] 06 Oct, 2011 [facility] [address] [id number] [address] [place] [address], [place] [address] 14 Sep, 2011 [facility] [address] [id number] [address] [place] [address], [place] [address] 10 Sep, 2011 [facility] [address] [id number] [address] [place] [address], [place] [address] 10 Sep, 2011 [facility] [address] [id number] [address] [place] [address], [place] [address] 11 May, 2011 [facility] [address] [id number] [address] [place] [address], [place] [address] Nov, [facility] [address] [id number] [address] [place] [address], [place] [address] 29 Oct, 2010 [facility] [address] [id number] [address] [place] [address], [place] [address] 14 Oct, 2010 [facility] [address] [id number] [address] [place] [address], [place] [address] 08 Oct, 2010 [facility] [address] [id number] [address] [place] [address], [place] [address] 15 Sep, 2010 [facility] [address] [id number] [address] [place] [address], [place] [address] Sep, [facility] [address] [id number] [address] [place] [address], [place] [address] Aug, [facility] [address] [id number] [address] [place] [address], [place] [address] March, [facility] [address] [id number] [address] [place] [address], [place] [address] Oct, [facility] [address] [id number] [address] [place] [address], [place] [address] Oct, [facility] [address] [id number] [address] [place] [id number] Oct, [facility] [address] [id number] [address] [place] [id number] Oct, [facility] [address] [id number] [address] [place] [id number] Sep, [facility] [address] [id number] [address] [place] [id number] Sep, [facility] [address] [id number] [address] [place] [phone] Sep, [facility] [address] [id number] [address] [place] [id number] Aug, [facility] [address] [facility] [id number] [address] [place] [id number] Aug, [facility] [address] [id number] [address] [place] [phone] Aug, [facility] [address] [facility] [id number] [address] [place] [id number] Jan, IMMUNIZATIONS No Known Immunizations SOCIAL HISTORY Never Assessed REASON FOR VISIT Pain to feet, legs and back. Unable to sleep through the night, also questioning shingles. TROY Key PLAN OF CARE Activity Details Follow Up prn Reason: VITAL SIGNS Height 69 in 2018-06-06 Weight 179.9 lbs 2018-06-06 Temperature 97 degrees Fahrenheit 2018-06-06 Heart Rate 59 bpm 2018-06-06 Respiratory Rate 20 2018-06-06 BMI 26.56 kg/m2 2018-06-06 Blood pressure systolic 116 mmHg 2018-06-06 Blood pressure diastolic 66 mmHg 2018-06-06 MEDICATIONS Medication Instructions Dosage Frequency Start Date End Date Duration S gato Pravastatin Sodium 20 mg Orally Once a day 1 tablet 24h March, 90 days Active Victoza 18 MG/3ML Subcutaneous Once a day 1.8 mg 24h 12 months Active Proventil HFA 108 (90 Base) MCG/ACT Inhalation every 4 hrs 2 puffs as needed 4h May, 12 months Active Omeprazole 20 mg Orally 2 times a day TAKE ONE CAPSULE BY MOUTH TWI CE DAILY 12h 90 days Active Levemir FlexTouch 100 UNIT/ML Subcutaneous 2 times a day INJ ECT 50 UNITS SUBCUTANEOUSLY TWICE DAILY (MUST KEEP APPOINTMENT ON 11/08 FOR REFILLS) 12h Active Hydrocodone-Acetaminophen 5-325 MG Orally 3 times a day 1 tablet as needed 8h 10 May, 2018 28 days Active Levothyroxine Sodium 125 MCG Orally Once a day on an e mpty stomach with a full glass of water 1 tablet Active NovoLog Flexpen 100 UNIT/ML Subcutaneous 3 times a day wit meals 10 units 14 Jan, 2017 12 months Active Welchol 625 MG Orally Once a day 1 capsule 24h 21 Apr, 2017 90 days Active Oxybutynin Chloride 5 mg Orally Twice a day 1 tablet 12h 90 days Active MetFORMIN HCl ER 500 mg Orally twice a day 2 tablets 12h 90 days Active Gabapentin 300 MG Orally Once a day 1 capsule before bedtime 24h Jan, 90 days Active Dicyclomine HCl 20 mg Orally 4 times a day TAKE ONE TABLET B Y MOUTH FOUR TIMES DAILY 6h 90 days Active Lisinopril 10 mg Orally Once a day 1 tablet 24h Jan, 90 days Active Trazodone HCl 50 mg Orally Once a day 1 tablet at bedtime as needed 24h 28 Apr, 2018 30 day(s) Active Nystatin 595254 UNIT/GM Externally Twice a day apply thin layer to pannus 12h 26 May, 2018 Jun, 10 days Active RESULTS Name Result Date Reference Range CT Scan : Abdomen & Pelvis w/o Contrast PROCEDURES No Known procedures INSTRUCTIONS MEDICATIONS ADMINISTERED [...]
--- OUTSIDE RECORDS SUMMARY | 2020-06-13 16:23 | XMS REPORT ---
Author Author Jah PARKER Organization [facility] Address [address] [place] [address] Care Team Providers Care Asset Protection Assistant Name Role Phone PARKERSHAYLEE MckeonELE Unavailable PROBLEMS Type Condition ICD9-CM Code RKF06-PA Code Onset Dates Condition S tatus SNOMED Code Problem Type 2 diabetes mellitus with hyperglycemia E11.65 Active 99754678 Problem Pulmonary emphysema, unspecified emphysema type J4 3.9 Active 69186170 Problem Essential (primary) hypertension I10 Active 68012495 Problem Hypertriglyceridemia E78.1 Active 964741554 Problem Major depressive disorder, recurrent episode, moderate F33.1 Active 749636069 Problem Recurrent major depressive disorder, in partial remission F33.41 Active 85169762 Problem Current non-adherence to medical treatment Z91.19 Active 6423684 Problem Anxiety disorder, unspecified type F41.9 Active 526479586 Problem Chronic fatigue R53.82 Active 8422 9001 Problem Chronic pain G89.29 Active 7378931 1 Problem Neuropathy G62.9 Active 812643667 Problem Thrombocytosis D47.3 Active 08435 09 Problem Mixed hyperlipidemia E78.2 Active 477295840 Problem Gastroesophageal reflux disease with esophagitis K 21.0 Active 496746185 Problem Hypothyroid E03.9 Active 20710157 Problem Irritable bowel syndrome with diarrhea K58.0 Active 913334676 Problem Overactive bladder N32.81 Active 2 03914873 Problem nursing home current use of insulin Z79.4 Active [id number] ALLERGIES No Information ENCOUNTERS Encounter Location Date Diagnosis [facility] [address] [facility] [id number] [address] [place] [address] Jun, Type 2 diabetes mellitus wit h hyperglycemia E11.65 ; Neuropathy G62.9 ; Recurrent major depressive disorder, in partial remission F33.41 ; Chronic pain G89.29 and Hypertriglyceridemia E78.1 [facility] [address] [facility] [id number] [address] [place] [address] Jun, Hypothyroid E03.9 [facility] [address] [id number] [address] [place] [address] Jun, Major depressive disorder, r ecurrent episode, moderate F33.1 and Anxiety disorder, unspecified type F41.9 [facility] [address] [id number] [address] [place] [address] Jun, [place] [address] 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 [id number] [address] [place] [address] May, [place] [address] [id number] [address] [place] [address] May, [place] [address] [id number] [address] [place] [address] May, [place] [address] [facility] [id number] [address] [place] [address] May, Generalized abdominal pain R 10.84 and Candidal dermatitis B37.2 [place] [address] [facility] [id number] [address] [place] [address] May, [place] [address] [id number] [address] [place] [address] May, [place] [address] [facility] [id number] [address] [place] [address] May, Nodular radiologic density R 93.8 ; Weight loss, unintentional R63.4 and Pulmonary emphysema, unspecified emphysema type J43.9 [place] [address] [facility] [id number] [address] [place] [address] May, Chronic pain G89.29 [facility] [address] [id number] [address] [place] [address] 09 May, 2018 Syncope and collapse R55 ; C hronic fatigue R53.[address] lung screening R91.8 [facility] [address] [id number] [address] [place] [address] May, [facility] [address] [id number] [address] [place] [address] Apr, Chronic fatigue R53.82 ; Abn ormal chest CT R93.8 ; Elevated erythrocyte sedimentation rate R70.0 ; Hypothyroid E03.9 and Recurrent major depressive disorder, in partial remission F33.41 [facility] [address] [id number] [address] [place] [address] Apr, Hypothyroid E03.9 [facility] [address] [id number] [address] [place] [address] Apr, Depression F32.9 [facility] [address] [id number] [address] [place] [address] Apr, [facility] [address] [id number] [address] [place] [address] March, [facility] [address] [facility] [id number] [address] [place] [address] March, Hypothyroid E03.9 [facility] [address] [facility] [id number] [address] [place] [address] March, Diabetes mellitus E11.9 and Hypothyroid E03.9 [facility] [address] [id number] [address] [place] [address] March, Diabetes mellitus E11.9 [facility] [address] [facility] [id number] [address] [place] [address] March, Hypothyroid E03.9 and Elevat ed liver enzymes R74.8 [facility] [address] [facility] [id number] [address] [place] [address] March, Type 2 diabetes mellitus wit h [...] major depressive disorder, in partial remission F33.41 [place] [id number] [place] [address] Feb, Chronic pain G89.29 [place] [id number] [place] [address] Feb, Type 2 diabetes mellitus wit h hyperglycemia E11.65 and Skin lesion of scalp L98.9 [place] [id number] [address] [place] [address] Feb, [place] [address] [address] Jan, Type 2 diabetes mellitus wit h hyperglycemia E11.65 ; 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 ; Essential (primary) hypertension I10 ; Pulmonary emphysema, unspecified emphysema type J43.9 ; Chronic pain G89.29 ; Controlled substance agreement signed Z79.899 ; Hypothyroid E03.9 ; Neuropathy G62.9 ; Gastroesophageal reflux disease with esophagitis K21.0 ; Overactive bladder N32.81 ; Depression F32.9 and Irritable bowel syndrome with diarrhea K58.0 [place] [address] [place] [id number] [address] [place] [address] Jan, [place] [address] [place] [id number] [address] [place] [address] Jan, Controlled substance agreeme nt signed Z79.899 [place] [address] [place] [id number] [address] [place] [address] Dec, Type 2 diabetes mellitus wit h hyperglycemia E11.65 ; Controlled substance agreement signed Z79.899 ; 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 [id number] [address] [place] [address] 02 Dec, 2017 Controlled substance agreeme nt signed Z79.899 [place] [address] [place] [id number] [address] [place] [address] Nov, Type 2 diabetes mellitus wit h hyperglycemia E11.65 and Current non- adherence to medical treatment Z91.19 [place] [address] [facility] [id number] [address] [place] [address] Nov, [place] [address] [facility] [id number] [address] [place] [address] Nov, Chronic pain G89.29 [place] [address] [place] [id number] [address] [place] [address] Nov, [place] [address] [place] [id number] [address] [place] [address] Nov, Hypothyroid E03.9 [place] [address] [facility] [id number] [address] [place] [address] Nov, Hypothyroid E03.9 [place] [address] [facility] [id number] [address] [place] [address] Nov, Pulmonary emphysema, unspeci fied emphysema type J43.9 and Irritable bowel syndrome with diarrhea K58.0 [place] [address] [facility] [id number] [address] [place] [address] Oct, [place] [address] [place] [id number] [address] [place] [address] Oct, [place] [address] [place] [address] Oct, [place] [address] [facility] [id number] [address] [place] [address] Oct, [place] [address] [place] [id number] [address] [place] [address] Oct, Chronic pain G89.29 [place] [address] [address] Oct, Diabetes mellitus E11.9 ; De pression F32.9 ; Mixed hyperlipidemia E78.2 ; Hypotension, unspecified hypotension type I95.9 ; Pulmonary emphysema, unspecified emphysema type J43.9 and Weight loss, unintentional R63.4 [place] [address] [address] Oct, Chronic pain G89.29 [place] [address] [address] Sep, Chronic pain G89.29 [place] [address] [address] Sep, Hypothyroid E03.9 and Diabet es mellitus E11.9 [place] [address] [address] Aug, Type 2 diabetes mellitus wit h hyperglycemia E11.65 ; 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 [id number] [address] [place] [address] Jun, [facility] [address] [facility] [id number] [address] [place] [address] Jun, [facility] [address] [facility] [id number] [address] [place] [address] Jun, Hypothyroid E03.9 [facility] [address] [facility] [id number] [address] [place] [address] Jun, Diabetes mellitus E11.9 ; Hy pothyroid E03.9 ; Neuropathy G62.9 ; Chronic pain G89.29 and Neck mass R22.1 [facility] [address] [facility] [facility] [id number] [address] [place] [address] Apr, [facility] [address] [facility] [id number] [address] [place] [address] Apr, Acute cystitis without hemat uria N30.00 [facility] [address] [facility] [id number] [address] [place] [address] March, [facility] [address] [facility] [id number] [address] [place] [address] March, [facility] [address] [facility] [id number] [address] [place] [address] March, Near syncope R55 [facility] [address] [facility] [facility] [id number] [address] [place] [address] Feb, [facility] [address] [facility] [id number] [address] [place] [address] Feb, Chronic pain G89.29 [facility] [address] [facility] [id number] [address] [place] [address] Feb, [facility] [address] [facility] 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 ; Neuropathy G62.9 ; Depression F32.9 ; Chronic pain G89.29 ; Irritable bowel syndrome with diarrhea K58.0 ; Overactive bladder N32.81 ; Mixed hyperlipidemia E78.2 and Bronchitis J40 [facility] [address] [address] Dec, [facility] [address] [place] [id number] [address] [place] [address] Dec, [facility] [address] [address] Dec, [facility] [address] [place] [id number] [address] [place] [address] Dec, [facility] [address] [place] [id number] [address] [place] [address] Dec, Chronic pain G89.29 [facility] [address] [place] [id number] [address] [place] [address] Dec, [facility] [address] [place] [id number] [address] [place] [address] Dec, [facility] [address] [place] [id number] [address] [place] [address] Dec, Type 2 diabetes mellitus wit h foot ulcer E11.621 [place] [address] [place] [id number] [address] [place] [address] 17 Dec, 2016 Type 2 diabetes mellitus wit h foot ulcer E11.621 [place] [address] [place] [id number] [place] [address] 14 Dec, 2016 HTN (hypertension) I10 ; Dep ression F32.9 ; Type 2 diabetes mellitus with foot ulcer E11.621 ; Functional diarrhea K59.1 ; Irritable bowel syndrome with diarrhea K58.0 ; Chronic pain G89.29 ; Insomnia G47.00 ; Overactive bladder N32.81 ; Mixed hyperlipidemia E78.2 ; Gastroesophageal reflux disease with esophagitis K21.0 and Acquired hypothyroidism E03.9 [place] [address] [address] Nov, [place] [address] [address] Oct, [place] [address] [address] Oct, [place] [address] [address] Oct, [place] [address] [address] Sep, Functional diarrhea K59.1 ; HTN (hypertension) I10 ; Diabetes mellitus E11.9 ; Depression F32.9 ; Overactive bladder N32.81 ; Mixed hyperlipidemia E78.2 ; Gastroesophageal reflux disease without esophagitis K21.9 ; Chronic pain G89.29 ; Insomnia G47.00 and Acquired hypothyroidism E03.9 [place] [address] [address] Sep, [place] [address] [address] Aug, Encounter for immunization Z 23 [place] [address] [address] Aug, [place] [address] [address] Jul, [place] [address] [address] Jun, Type 2 diabetes mellitus wit hout complications E11.9 ; HTN (hypertension) I10 ; Hypothyroid E03.9 ; Neuropathy G62.9 ; Depression F32.9 ; Chronic pain G89.29 ; GERD (gastroesophageal reflux disease) K21.9 ; Insomnia G47.00 ; Overactive bladder N32.81 ; Mixed hyperlipidemia E78.2 ; Diarrhea of infectious origin A09 and Environmental allergies Z91.09 [place] [address] [address] Apr, [place] [address] [address] March, Hypothyroidism, unspecified E03.9 and Mixed hyperlipidemia E78.2 [place] [address] [address] March, Diabetes mellitus E11.9 ; HT N (hypertension) I10 ; Hypothyroid E03.9 ; Depression F32.9 ; Overactive bladder N32.81 ; Other chronic pain G89.29 ; Lumbago with sciatica, unspecified side M54.40 ; Environmental allergies Z91.09 and Gastroesophageal reflux disease, esophagitis presence not specified K21.9 [place] [address] [address] March, [place] [address] [address] Jan, HTN (hypertension) I10 ; Hyp othyroid E03.9 ; Neuropathy G62.9 ; Diabetes mellitus E11.9 ; Chronic pain G89.29 ; GERD (gastroesophageal reflux disease) K21.9 ; Overactive bladder N32.81 and Depression F32.9 [place] [address] [address] Dec, Ear pain, left H92.02 ; HTN (hypertension) I10 ; Hypothyroid E03.9 ; Neuropathy G62.9 ; Diabetes mellitus E11.9 ; Depression F32.9 ; GERD (gastroesophageal reflux disease) K21.9 ; Insomnia G47.00 and Overactive bladder N32.81 [place] [address] [place] [address] Nov, Overactive bladder N32.81 an d Chronic pain G89.29 [place] [address] [place] [id number] [place] [address] Nov, Kidney failure N19 [place] [address] [place] [id number] [place] [address] Nov, [place] [address] [place] [id number] [address] [place] [address] Nov, [place] [address] [address] Nov, Diabetes mellitus E11.9 ; De pression F32.9 ; Chronic pain G89.29 ; GERD (gastroesophageal reflux disease) K21.9 ; Insomnia G47.00 ; HTN (hypertension) I10 ; Hypothyroid E03.9 ; COPD (chronic obstructive pulmonary disease) J44.9 ; Bladder incontinence R32 and Incontinence R32 [place] [address] [place] [address] Sep, Type 2 diabetes mellitus wit h foot ulcer E11.621 and Chromosomal abnormality, 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 [place] [address] [place] [id number] [address] [place] [address] Sep, [place] [address] [place] [id number] [place] [address] Aug, [place] [address] [place] [id number] [address] [place] [address] Aug, [place] [address] [place] [id number] [place] [address] Aug, HTN (hypertension) I10 ; Enc ounter for immunization Z23 ; Hypothyroid E03.9 ; Neuropathy G62.9 ; Diabetes mellitus E11.9 ; Depression F32.9 ; Chronic pain G89.29 ; GERD (gastroesophageal reflux disease) K21.9 ; Insomnia G47.00 and COPD (chronic obstructive pulmonary disease) J44.[address] [address] Jun, [address] [address] Jun, [address] [address] May, Essential hypertension, ivis gn 401.1 ; Unspecified hypothyroidism 244.9 ; Insomnia, unspecified 780.52 ; Shortness of breath 786.05 ; Depression 311 ; COPD (chronic obstructive pulmonary disease) 496 ; GERD (gastroesophageal reflux disease) 530.81 and Diabetes 1.5, 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 [address] May, [address] [address] May, [address] [address] May, Shortness of breath 786.05 ; Essential hypertension, benign 401.1 ; Diabetes mellitus 250.00 ; Hyperlipidemia 272.4 ; Hypothyroid 244.9 ; Insomnia 780.52 and Cough 786.[address] [address] Apr, [address] [address] March, Shortness of breath 786.05 ; Nausea with vomiting 787.01 ; Essential hypertension, benign 401.1 ; Diabetes mellitus 250.00 ; Hyperlipidemia 272.4 and Hypothyroid 244.[address] [address] 14 Feb, 2015 [facility] [address] [id number] [address] [place] [address], [place] [address] Feb, [facility] [address] [id number] [address] [place] [address], [place] [address] Jan, [facility] [address] [id number] [address] [place] [address], [place] [address] Jan, [facility] [place] [facility] [address] [id number] [address] [place] [address], [place] [address] Jan, [facility] [address] [id number] [address] [place] [address], [place] [address] Jan, [facility] [address] [id number] [address] [place] [address], [place] [address] Jan, [facility] [address] [id number] [address] [place] [address], [place] [address] Jan, [facility] [address] [id number] [address] [place] [address], [place] [address] Jan, [facility] [address] [id number] [address] [place] [address], [place] [address] Jan, [facility] [address] [id number] [address] [place] [address], [place] [address] Jan, [facility] [address] [id number] [address] [place] [address], [place] [address] Jan, [facility] [place] [facility] [address] [id number] [address] [place] [address], [place] [address] Dec, [facility] [place] [facility] [address] [id number] [address] [place] [address], [place] [address] Dec, [facility] [place] [facility] [address] [id number] [address] [place] [address], [place] [address] Dec, [facility] [place] [facility] [address] [id number] [address] [place] [address], [place] [address] Dec, [facility] [place] [facility] [address] [id number] [address] [place] [address], [place] [address] Dec, 2014 [facility] [address] [id number] [address] [place] [address], [place] [id number] Dec, 2014 [facility] [address] [id number] [address] [place] [address], [place] [address] Dec, 2014 [facility] [address] [id number] [address] [place] [address], [place] [address] Dec, 2014 [facility] [address] [id number] [address] [place] [address], [place] [address] Dec, 2014 [facility] [address] [id number] [address] [place] [address], [place] [id number] Dec, 2014 [facility] [address] [id number] [address] [place] [address], [place] [address] Oct, [facility] [address] [id number] [address] [place] [address], [place] [address] Oct, [facility] [address] [id number] [address] [place] [address], [place] [address] Oct, [facility] [address] [id number] [address] [place] [address], [place] [address] Oct, [facility] [address] [id number] [address] [place] [id number] Oct, [facility] [address] [id number] [address] [place] [id number] Oct, [facility] [address] [id number] [address] [place] [address], [place] [address] Oct, [facility] [address] [id number] [address] [place] [address], [place] [address] Oct, [facility] [address] [id number] [address] [place] [id number] Oct, [facility] [address] [id number] [address] [place] [address], [place] [address] Oct, [facility] [address] [id number] [address] [place] [address], [place] [address] Oct, [facility] [address] [id number] [address] [place] [address], [place] [address] Oct, [facility] [address] [id number] [address] [place] [address], [place] [address] Oct, [facility] [address] [id number] [address] [place] [address], [place] [address] Oct, [facility] [address] [id number] [address] [place] [address], [place] [address] Sep, [facility] [address] [id number] [address] [place] [address], [place] [id number] Sep, [facility] [address] [address] [id number] [address] [place] [address], [place] [address] Sep, [facility] [address] [id number] [address] [place] [address], [place] [address] Sep, [facility] [address] [id number] [address] [place] [address], [place] [address] Sep, [facility] [address] [id number] [address] [place] [address], [place] [address] Sep, [facility] [address] [id number] [address] [place] [address], [place] [address] Sep, [facility] [address] [id number] [address] [place] [address], [place] [address] Sep, [facility] [address] [id number] [address] [place] [address], [place] [address] Sep, [facility] [address] [id number] [address] [place] [address], [place] [address] Aug, [facility] [address] [id number] [address] [place] [address], [place] [address] Aug, [facility] [address] [id number] [address] [place] [address], [place] [address] 17 Aug, 2013 [facility] [address] [id number] [address] [place] [address], [place] [address] 17 Aug, 2014 [facility] [address] [id number] [address] [place] [address], [place] [address] 16 Aug, 2013 [facility] [address] [id number] [address] [place] [address], [place] [address] Aug, [facility] [address] [id number] [address] [place] [address], [place] [address] Aug, [facility] [address] [id number] [address] [place] [address], [place] [address] Aug, [facility] [address] [id number] [address] [place] [address], [place] [address] Aug, [facility] [address] [id number] [address] [place] [address], [place] [address] 29 Jul, 2013 [facility] [address] [id number] [address] [place] [address], [place] [address] 29 Sep, 2013 [facility] [address] [id number] [address] [place] [address], [place] [address] 25 Sep, 2013 [facility] [address] [id number] [address] [place] [address], [place] [address] 25 Sep, 2013 [facility] [address] [id number] [address] [place] [address], [place] [address] 25 Sep, 2013 [facility] [address] [id number] [address] [place] [address], [place] [address] 25 Sep, 2013 [facility] [address] [id number] [address] [place] [address], [place] [address] 25 Jul, 2013 [facility] [address] [id number] [address] [place] [address], [place] [address] 25 Jul, 2013 [facility] [address] [id number] [address] [place] [address], [place] [address] Jul, [facility] [address] [id number] [facility] [place] [address] Jul, [facility] [address] [id number] [facility] [place] [address] Jun, [facility] [address] [id number] [facility] [place] [address] Jun, [facility] [address] [id number] [address] [place] [address], [place] [address] Jun, [facility] [address] [id number] [facility] [place] [address] Jun, [facility] [address] [id number] [address] [place] [address], [place] [address] Jun, [facility] [address] [id number] [address] [place] [address], [place] [address] Jun, [facility] [address] [id number] [address] [place] [address], [place] [address] Jun, [facility] [address] [id number] [address] [place] [address], [place] [address] Jun, [facility] [address] [id number] [address] [place] [address], [place] [address] Jun, [facility] [address] [id number] [address] [place] [address], [place] [address] Jun, [facility] [address] [id number] [address] [place] [address], [place] [address] Jun, [facility] [address] [id number] [address] [place] [address], [place] [address] Jun, [facility] [address] [id number] [address] [place] [address], [place] [address] May, [facility] [address] [id number] [address] [place] [address], [place] [address] May, [facility] [address] [id number] [facility] [place] [address] May, [facility] [address] [id number] [address] [place] [address], [place] [address] May, [facility] [address] [id number] [address] [place] [address], [place] [address] May, [facility] [address] [id number] [address] [place] [address], [place] [address] May, [facility] [address] [id number] [address] [place] [address], [place] [address] March, [facility] [address] [id number] [address] [place] [address], [place] [address] March, [facility] [address] [id number] [address] [place] [address], [place] [address] March, [facility] [address] [id number] [address] [place] [address], [place] [address] March, [facility] [address] [id number] [address] [place] [address], [place] [address] March, [facility] [address] [id number] [address] [place] [address], [place] [address] March, [facility] [address] [id number] [address] [place] [address], [place] [address] Feb, [facility] [address] [id number] [address] [place] [address], [place] [address] Feb, [facility] [address] [id number] [address] [place] [address], [place] [address] Feb, [facility] [address] [id number] [address] [place] [address], [place] [address] Feb, [facility] [address] [id number] [address] [place] [address], [place] [address] Jan, [facility] [address] [id number] [address] [place] [address], [place] [address] Jan, [facility] [address] [id number] [facility] [place] [address] Jan, [facility] [address] [id number] [facility] [place] [address] Jan, [facility] [address] [id number] [facility] [place] [address] Jan, [facility] [address] [id number] [address] [place] [address], [place] [address] Jan, [facility] [address] [id number] [address] [place] [address], [place] [address] Jan, [facility] [address] [id number] [address] [place] [address], [place] [address] Jan, [facility] [address] [id number] [address] [place] [address], [place] [address] Jan, [facility] [address] [id number] [address] [place] [address], [place] [address] Jan, [facility] [address] [id number] [address] [place] [address], [place] [address] Jan, [facility] [address] [id number] [address] [place] [address], [place] [address] Jan, [facility] [address] [id number] [address] [place] [address], [place] [address] Dec, [facility] [address] [id number] [address] [place] [address], [place] [address] Dec, [facility] [address] [id number] [address] [place] [address], [place] [address] Dec, [facility] [address] [id number] [address] [place] [address], [place] [address] Dec, [facility] [address] [id number] [address] [place] [address], [place] [address] Dec, [facility] [address] [id number] [address] [place] [address] Dec, [facility] [address] [id number] [address] [place] [address], [place] [address] Nov, [facility] [address] [id number] [address] [place] [address], [place] [address] Nov, [facility] [address] [id number] [address] [place] [address], [place] [address] Oct, [facility] [address] [id number] [address] [place] [address], [place] [address] Oct, [facility] [address] [id number] [address] [place] [address], [place] [address] Oct, [facility] [address] [id number] [address] [place] [address], [place] [address] Oct, [facility] [address] [id number] [address] [place] [address], [place] [address] Oct, [facility] [address] [id number] [address] [place] [address], [place] [address] Oct, [facility] [address] [id number] [address] [place] [address], [place] [address] Sep, [facility] [address] [id number] [address] [place] [address], [place] [address] Sep, [facility] [address] [id number] [address] [place] [address], [place] [address] Sep, [facility] [address] [id number] [address] [place] [address], [place] [address] Sep, [facility] [address] [id number] [address] [place] [address], [place] [address] Aug, [facility] [address] [id number] [address] [place] [address], [place] [address] Aug, [facility] [address] [id number] [address] [place] [address] Aug, [facility] [address] [id number] [address] [place] [address], [place] [address] 17 Jul, 2013 [facility] [address] [id number] [address] [place] [address], [place] [address] 14 Jul, 2013 [facility] [address] [id number] [address] [place] [address], [place] [address] 04 Jul, 2013 [facility] [address] [id number] [address] [place] [address], [place] [address] Jun, [facility] [address] [id number] [address] [place] [address], [place] [address] Jun, [facility] [address] [id number] [address] [place] [address], [place] [address] Jun, [facility] [address] [id number] [address] [place] [address], [place] [address] Apr, [facility] [address] [id number] [address] [place] [address], [place] [address] Apr, [facility] [address] [id number] [address] [place] [address], [place] [address] March, [facility] [address] [id number] [address] [place] [address], [place] [address] March, [facility] [address] [id number] [address] [place] [address], [place] [address] March, [facility] [address] [id number] [address] [place] [address], [place] [address] March, [facility] [address] [id number] [address] [place] [address], [place] [address] Feb, [facility] [address] [id number] [address] [place] [address], [place] [address] Jan, [facility] [address] [id number] [address] [place] [address], [place] [address] Dec, [facility] [address] [id number] [address] [place] [address], [place] [address] 08 Dec, 2012 [facility] [address] [id number] [address] [place] [address], [place] [address] Dec, [facility] [address] [id number] [address] [place] [address], [place] [address] Nov, [facility] [address] [id number] [address] [place] [address], [place] [address] Oct, [facility] [address] [id number] [address] [place] [address], [place] [address] Oct, [facility] [address] [id number] [address] [place] [address], [place] [address] Sep, [facility] [address] [id number] [address] [place] [address], [place] [address] Sep, [facility] [address] [id number] [address] [place] [address], [place] [address] Sep, [facility] [address] [id number] [address] [place] [address], [place] [address] Sep, [facility] [address] [id number] [address] [place] [address], [place] [address] Sep, [facility] [address] [id number] [address] [place] [address], [place] [address] Sep, [facility] [address] [id number] [address] [place] [address], [place] [address] Sep, [facility] [address] [id number] [address] [place] [address], [place] [address] Aug, [facility] [address] [id number] [address] [place] [address], [place] [address] Aug, [facility] [address] [id number] [address] [place] [address], [place] [address] Aug, [facility] [address] [id number] [address] [place] [address], [place] [address] Aug, [facility] [address] [id number] [address] [place] [address], [place] [address] 08 Aug, 2012 [facility] [address] [id number] [address] [place] [address], [place] [address] 08 Aug, 2012 [facility] [address] [id number] [address] [place] [address], [place] [address] Aug, [facility] [address] [id number] [address] [place] [address], [place] [address] Aug, [facility] [address] [id number] [address] [place] [address], [place] [address] Jul, [facility] [address] [id number] [address] [place] [address], [place] [address] Jul, [facility] [address] [id number] [address] [place] [address], [place] [address] Jun, [facility] [address] [id number] [address] [place] [address], [place] [address] May, [facility] [address] [id number] [address] [place] [address], [place] [address] Apr, [facility] [address] [id number] [address] [place] [address], [place] [address] Apr, [facility] [address] [id number] [address] [place] [address], [place] [address] Apr, [facility] [address] [id number] [address] [place] [address], [place] [address] March, [facility] [address] [id number] [address] [place] [address], [place] [address] March, [facility] [address] [id number] [address] [place] [address], [place] [address] March, [facility] [address] [id number] [address] [place] [address], [place] [address] March, [facility] [address] [id number] [address] [place] [address], [place] [address] March, [facility] [address] [id number] [address] [place] [address], [place] [address] March, [facility] [address] [id number] [address] [place] [address], [place] [address] March, [facility] [address] [id number] [address] [place] [address], [place] [address] Jan, [facility] [address] [id number] [address] [place] [address], [place] [address] Jan, [facility] [address] [id number] [address] [place] [address], [place] [address] Jan, [facility] [address] [id number] [address] [place] [address], [place] [address] Jan, [facility] [address] [id number] [address] [place] [address], [place] [address] Jan, [facility] [address] [id number] [address] [place] [address], [place] [address] Dec, [facility] [address] [id number] [address] [place] [address], [place] [address] Dec, [facility] [address] [id number] [address] [place] [address], [place] [address] Nov, [facility] [address] [id number] [address] [place] [address], [place] [address] Nov, [facility] [address] [id number] [address] [place] [address], [place] [address] Nov, [facility] [address] [id number] [address] [place] [address], [place] [address] Nov, [facility] [address] [id number] [address] [place] [address], [place] [address] Oct, [facility] [address] [id number] [address] [place] [address], [place] [address] Oct, [facility] [address] [id number] [address] [place] [address], [place] [address] 14 Sep, 2011 [facility] [address] [id number] [address] [place] [address], [place] [address] 10 Sep, 2011 [facility] [address] [id number] [address] [place] [address], [place] [address] 10 Sep, 2011 [facility] [address] [id number] [address] [place] [address], [place] [id number] 11 May, 2011 [facility] [address] [id number] [address] [place] [address], [place] [id number] 20 Nov, 2010 [facility] [address] [id number] [address] [place] [address], [place] [id number] 29 Oct, 2010 [facility] [address] [id number] [address] [place] [address], [place] [id number] 14 Oct, 2010 [facility] [address] [id number] [address] [place] [address], [place] [id number] 08 Oct, 2010 [facility] [address] [id number] [address] [place] [address], [place] [id number] 15 Sep, 2010 [facility] [address] [id number] [address] [place] [address], [place] [id number] 02 Sep, 2010 [facility] [address] [id number] [address] [place] [address], [place] [address] Aug, [facility] [address] [id number] [address] [place] [address], [place] [id number] March, [facility] [address] [id number] [address] [place] [address], [place] [id number] 17 Oct, 2009 [facility] [address] [id number] [address] [place] [address], [place] [id number] Oct, [facility] [address] [id number] [address] [place] [address], [place] [id number] Oct, [facility] [address] [id number] [address] [place] [address], [place] [id number] Oct, [facility] [address] [facility] [id number] [address] [place] [id number] Sep, [facility] [address] [facility] [id number] [address] [place] [id number] Sep, [facility] [address] [facility] [id number] [address] [place] [id number] Sep, [facility] [address] [facility] [id number] [address] [place] [id number] Aug, [facility] [address] [facility] [id number] [address] [place] [id number] Aug, [facility] [address] [facility] [id number] [address] [place] [id number] Aug, [facility] [address] [facility] [id number] [address] [place] [id number] Jan, IMMUNIZATIONS No Known Immunizations SOCIAL HISTORY [...]
--- OUTSIDE RECORDS SUMMARY | 2020-06-13 16:23 | XMS REPORT ---
Author Author Jah PARKER Organization [facility] Address [address] [place] [address] Care Team Providers Care Fish Rod Maker Name Role Phone PARKERSHAYLEE MckeonELE Unavailable PROBLEMS Type Condition ICD9-CM Code FFA45-NN Code Onset Dates Condition S tatus SNOMED Code Problem Type 2 diabetes mellitus with hyperglycemia E11.65 Active 44577715 Problem Pulmonary emphysema, unspecified emphysema type J4 3.9 Active 08327232 Problem Essential (primary) hypertension I10 Active 96518394 Problem Hypertriglyceridemia E78.1 Active 952637932 Problem Major depressive disorder, recurrent episode, moderate F33.1 Active 746454052 Problem Recurrent major depressive disorder, in partial remission F33.41 Active 70810839 Problem Current non-adherence to medical treatment Z91.19 Active 8930329 Problem Anxiety disorder, unspecified type F41.9 Active 912434954 Problem Chronic fatigue R53.82 Active 8422 9001 Problem Chronic pain G89.29 Active 7496203 1 Problem Neuropathy G62.9 Active 935043602 Problem Thrombocytosis D47.3 Active 51097 09 Problem Mixed hyperlipidemia E78.2 Active 646561344 Problem Gastroesophageal reflux disease with esophagitis K 21.0 Active 705182606 Problem Hypothyroid E03.9 Active 21531634 Problem Irritable bowel syndrome with diarrhea K58.0 Active 597725719 Problem Overactive bladder N32.81 Active 2 26447207 Problem residential current use of insulin Z79.4 Active 144264741 ALLERGIES No Information ENCOUNTERS Encounter Location Date Diagnosis [facility] [address] [facility] [id number] [address] [place] [id number] Jun, Type 2 diabetes mellitus wit h hyperglycemia E11.65 ; Neuropathy G62.9 ; Recurrent major depressive disorder, in partial remission F33.41 ; Chronic pain G89.29 and Hypertriglyceridemia E78.1 [facility] [address] [facility] [id number] [address] [place] [id number] Jun, Hypothyroid E03.9 [facility] [address] [id number] [address] [place] [id number] Jun, Major depressive disorder, r ecurrent episode, moderate F33.1 and Anxiety disorder, unspecified type F41.9 [facility] [address] [id number] [address] [place] [id number] Jun, [place] [address] 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 [id number] [address] [place] [address] May, [place] [address] [id number] [address] [place] [address] May, [place] [address] [id number] [address] [place] [address] May, [place] [address] [facility] [id number] [address] [place] [address] May, Generalized abdominal pain R 10.84 and Candidal dermatitis B37.2 [place] [address] [facility] [id number] [address] [place] [phone] May, [place] [address] [id number] [address] [place] [address] May, [place] [address] [facility] [id number] [address] [place] [address] May, Nodular radiologic density R 93.8 ; Weight loss, unintentional R63.4 and Pulmonary emphysema, unspecified emphysema type J43.9 [place] [address] [facility] [id number] [address] [place] [address] May, Chronic pain G89.29 [facility] [address] [id number] [address] [place] [id number] 09 May, 2018 Syncope and collapse R55 ; C hronic fatigue R53.[address] lung screening R91.8 [facility] [address] [id number] [address] [place] [address] May, [facility] [address] [id number] [address] [place] [address] Apr, Chronic fatigue R53.82 ; Abn ormal chest CT R93.8 ; Elevated erythrocyte sedimentation rate R70.0 ; Hypothyroid E03.9 and Recurrent major depressive disorder, in partial remission F33.41 [facility] [address] [id number] [address] [place] [phone] Apr, Hypothyroid E03.9 [facility] [address] [id number] [address] [place] [id number] Apr, Depression F32.9 [facility] [address] [id number] [address] [place] [id number] Apr, [facility] [address] [id number] [address] [place] [id number] March, [facility] [address] [facility] [id number] [address] [place] [address] March, Hypothyroid E03.9 [facility] [address] [facility] [id number] [address] [place] [id number] March, Diabetes mellitus E11.9 and Hypothyroid E03.9 [facility] [address] [id number] [address] [place] [address] March, Diabetes mellitus E11.9 [facility] [address] [facility] [id number] [address] [place] [address] March, Hypothyroid E03.9 and Elevat ed liver enzymes R74.8 [facility] [address] [facility] [id number] [address] [place] [address] March, Type 2 diabetes mellitus wit h hyperglycemia E11.65 ; residential current use of insulin Z79.4 ; Pulmonary emphysema, unspecified emphysema type J43.9 ; Hypothyroid E03.9 ; Neuropathy G62.9 ; Mixed hyperlipidemia E78.2 ; Chronic pain G89.29 ; Gastroesophageal reflux disease with esophagitis K21.0 ; Irritable bowel syndrome with diarrhea K58.0 ; Overactive bladder N32.81 and Recurrent major depressive disorder, in partial remission F33.41 [place] [id number] [place] [address] Feb, Chronic pain G89.29 [place] [id number] [place] [address] Feb, Type 2 diabetes mellitus wit h hyperglycemia E11.65 and Skin lesion of scalp L98.9 [place] [id number] [address] [place] [address] Feb, [place] [address] [address] Jan, Type 2 diabetes mellitus wit h hyperglycemia E11.65 ; 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 ; Essential (primary) hypertension I10 ; Pulmonary emphysema, unspecified emphysema type J43.9 ; Chronic pain G89.29 ; Controlled substance agreement signed Z79.899 ; Hypothyroid E03.9 ; Neuropathy G62.9 ; Gastroesophageal reflux disease with esophagitis K21.0 ; Overactive bladder N32.81 ; Depression F32.9 and Irritable bowel syndrome with diarrhea K58.0 [place] [address] [place] [id number] [address] [place] [id number] Jan, [place] [address] [place] [id number] [address] [place] [address] Jan, Controlled substance agreeme nt signed Z79.899 [place] [address] [place] [id number] [address] [place] [address] Dec, Type 2 diabetes mellitus wit h hyperglycemia E11.65 ; Controlled substance agreement signed Z79.899 ; 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 [id number] [address] [place] [address] 02 Dec, 2017 Controlled substance agreeme nt signed Z79.899 [place] [address] [place] [id number] [address] [place] [address] Nov, Type 2 diabetes mellitus wit h hyperglycemia E11.65 and Current non- adherence to medical treatment Z91.19 [place] [address] [facility] [id number] [address] [place] [address] Nov, [place] [address] [facility] [id number] [address] [place] [address] Nov, Chronic pain G89.29 [place] [address] [place] [id number] [address] [place] [address] Nov, [place] [address] [place] [id number] [address] [place] [address] Nov, Hypothyroid E03.9 [place] [address] [facility] [id number] [address] [place] [address] Nov, Hypothyroid E03.9 [place] [address] [facility] [id number] [address] [place] [address] Nov, Pulmonary emphysema, unspeci fied emphysema type J43.9 and Irritable bowel syndrome with diarrhea K58.0 [place] [address] [facility] [id number] [address] [place] [address] Oct, [place] [address] [place] [id number] [address] [place] [address] Oct, [place] [id number] [place] [address] Oct, [place] [address] [facility] [id number] [address] [place] [address] Oct, [place] [address] [place] [id number] [address] [place] [address] Oct, Chronic pain G89.29 [place] [address] [address] Oct, Diabetes mellitus E11.9 ; De pression F32.9 ; Mixed hyperlipidemia E78.2 ; Hypotension, unspecified hypotension type I95.9 ; Pulmonary emphysema, unspecified emphysema type J43.9 and Weight loss, unintentional R63.4 [place] [address] [address] Oct, Chronic pain G89.29 [place] [address] [address] Sep, Chronic pain G89.29 [place] [address] [address] Sep, Hypothyroid E03.9 and Diabet es mellitus E11.9 [place] [address] [address] Aug, Type 2 diabetes mellitus wit h hyperglycemia E11.65 ; 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 ; Essential (primary) hypertension I10 ; Hypothyroid E03.9 ; Neuropathy G62.9 ; Chronic pain G89.29 ; Mixed hy perlipidemia E78.2 and Encounter for immunization Z23 [place] [address] [place] [id number] [address] [place] [address] Aug, Chronic pain G89.29 [place] [address] [place] [id number] [address] [place] [address] Aug, Overactive bladder N32.81 ; Diabetes mellitus E11.9 and Chronic pain G89.29 [place] [address] [place] [id number] [place] [address] Jul, [facility] [address] [facility] [id number] [address] [place] [id number] Jun, [facility] [address] [facility] [id number] [address] [place] [id number] Jun, [facility] [address] [facility] [id number] [address] [place] [id number] Jun, Hypothyroid E03.9 [facility] [address] [facility] [id number] [address] [place] [address] Jun, Diabetes mellitus E11.9 ; Hy pothyroid E03.9 ; Neuropathy G62.9 ; Chronic pain G89.29 and Neck mass R22.1 [facility] [address] [facility] [id number] [address] [place] [address] Apr, [facility] [address] [facility] [id number] [address] [place] [address] Apr, Acute cystitis without hemat uria N30.00 [facility] [address] [facility] [id number] [address] [place] [address] March, [facility] [address] [facility] [id number] [address] [place] [address] March, [facility] [address] [facility] [id number] [address] [place] [address] March, Near syncope R55 [facility] [address] [facility] [id number] [address] [place] [address] Feb, [facility] [address] [facility] [id number] [address] [place] [address] Feb, Chronic pain G89.29 [facility] [address] [facility] [id number] [address] [place] [address] Feb, [facility] [address] [facility] [id number] [address] [place] [address] Feb, [facility] [address] [place] [id number] [address] [place] [address] Jan, Chronic pain G89.29 [facility] [address] [address] Jan, [facility] [address] [id number] 16 Jan, 2017 [facility] [address] [address] 14 Jan, 2017 Diabetes mellitus E11.9 ; Hy pothyroid E03.9 ; GERD (gastroesophageal reflux disease) K21.9 ; Insomnia G47.00 ; Functional diarrhea K59.1 ; Neuropathy G62.9 ; Depression F32.9 ; Chronic pain G89.29 ; Irritable bowel syndrome with diarrhea K58.0 ; Overactive bladder N32.81 ; Mixed hyperlipidemia E78.2 and Bronchitis J40 [facility] [address] [address] Dec, [facility] [address] [place] [id number] [address] [place] [id number] Dec, [facility] [address] [address] Dec, [facility] [address] [place] [id number] [address] [place] [address] Dec, [facility] [address] [place] [id number] [address] [place] [address] Dec, Chronic pain G89.29 [facility] [address] [place] [id number] [address] [place] [address] Dec, [facility] [address] [place] [id number] [address] [place] [address] Dec, [facility] [address] [place] [id number] [address] [place] [address] Dec, Type 2 diabetes mellitus wit h foot ulcer E11.621 [place] [address] [place] [id number] [address] [place] [address] 17 Dec, 2016 Type 2 diabetes mellitus wit h foot ulcer E11.621 [place] [address] [place] [id number] [place] [address] 14 Dec, 2016 HTN (hypertension) I10 ; Dep ression F32.9 ; Type 2 diabetes mellitus with foot ulcer E11.621 ; Functional diarrhea K59.1 ; Irritable bowel syndrome with diarrhea K58.0 ; Chronic pain G89.29 ; Insomnia G47.00 ; Overactive bladder N32.81 ; Mixed hyperlipidemia E78.2 ; Gastroesophageal reflux disease with esophagitis K21.0 and Acquired hypothyroidism E03.9 [place] [address] [address] Nov, [place] [address] [address] Oct, [place] [address] [address] Oct, [place] [address] [address] Oct, [place] [address] [address] Sep, Functional diarrhea K59.1 ; HTN (hypertension) I10 ; Diabetes mellitus E11.9 ; Depression F32.9 ; Overactive bladder N32.81 ; Mixed hyperlipidemia E78.2 ; Gastroesophageal reflux disease without esophagitis K21.9 ; Chronic pain G89.29 ; Insomnia G47.00 and Acquired hypothyroidism E03.9 [place] [address] [address] Sep, [place] [address] [address] Aug, Encounter for immunization Z 23 [place] [address] [address] Aug, [place] [address] [address] Jul, [place] [address] [address] Jun, Type 2 diabetes mellitus wit hout complications E11.9 ; HTN (hypertension) I10 ; Hypothyroid E03.9 ; Neuropathy G62.9 ; Depression F32.9 ; Chronic pain G89.29 ; GERD (gastroesophageal reflux disease) K21.9 ; Insomnia G47.00 ; Overactive bladder N32.81 ; Mixed hyperlipidemia E78.2 ; Diarrhea of infectious origin A09 and Environmental allergies Z91.09 [place] [address] [address] Apr, [place] [address] [address] March, Hypothyroidism, unspecified E03.9 and Mixed hyperlipidemia E78.2 [place] [address] [address] March, Diabetes mellitus E11.9 ; HT N (hypertension) I10 ; Hypothyroid E03.9 ; Depression F32.9 ; Overactive bladder N32.81 ; Other chronic pain G89.29 ; Lumbago with sciatica, unspecified side M54.40 ; Environmental allergies Z91.09 and Gastroesophageal reflux disease, esophagitis presence not specified K21.9 [place] [address] [address] March, [place] [address] [address] Jan, HTN (hypertension) I10 ; Hyp othyroid E03.9 ; Neuropathy G62.9 ; Diabetes mellitus E11.9 ; Chronic pain G89.29 ; GERD (gastroesophageal reflux disease) K21.9 ; Overactive bladder N32.81 and Depression F32.9 [place] [address] [address] Dec, Ear pain, left H92.02 ; HTN (hypertension) I10 ; Hypothyroid E03.9 ; Neuropathy G62.9 ; Diabetes mellitus E11.9 ; Depression F32.9 ; GERD (gastroesophageal reflux disease) K21.9 ; Insomnia G47.00 and Overactive bladder N32.81 [place] [address] [place] [address] Nov, Overactive bladder N32.81 an d Chronic pain G89.29 [place] [address] [place] [id number] [place] [address] Nov, Kidney failure N19 [place] [address] [place] [id number] [place] [address] Nov, [place] [address] [place] [id number] [address] [place] [address] Nov, [place] [address] [address] Nov, Diabetes mellitus E11.9 ; De pression F32.9 ; Chronic pain G89.29 ; GERD (gastroesophageal reflux disease) K21.9 ; Insomnia G47.00 ; HTN (hypertension) I10 ; Hypothyroid E03.9 ; COPD (chronic obstructive pulmonary disease) J44.9 ; Bladder incontinence R32 and Incontinence R32 [place] [address] [place] [address] Sep, Type 2 diabetes mellitus wit h foot ulcer E11.621 and Chromosomal abnormality, 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 [place] [address] [place] [id number] [address] [place] [address] Sep, [place] [address] [place] [id number] [place] [address] Aug, [place] [address] [place] [id number] [address] [place] [address] Aug, [place] [address] [place] [id number] [place] [address] Aug, HTN (hypertension) I10 ; Enc ounter for immunization Z23 ; Hypothyroid E03.9 ; Neuropathy G62.9 ; Diabetes mellitus E11.9 ; Depression F32.9 ; Chronic pain G89.29 ; GERD (gastroesophageal reflux disease) K21.9 ; Insomnia G47.00 and COPD (chronic obstructive pulmonary disease) J44.[address] [address] Jun, [address] [address] Jun, [address] [address] May, Essential hypertension, ivis gn 401.1 ; Unspecified hypothyroidism 244.9 ; Insomnia, unspecified 780.52 ; Shortness of breath 786.05 ; Depression 311 ; COPD (chronic obstructive pulmonary disease) 496 ; GERD (gastroesophageal reflux disease) 530.81 and Diabetes 1.5, 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 [address] May, [address] [address] May, [address] [address] May, Shortness of breath 786.05 ; Essential hypertension, benign 401.1 ; Diabetes mellitus 250.00 ; Hyperlipidemia 272.4 ; Hypothyroid 244.9 ; Insomnia 780.52 and Cough 786.[address] [address] Apr, [address] [address] March, Shortness of breath 786.05 ; Nausea with vomiting 787.01 ; Essential hypertension, benign 401.1 ; Diabetes mellitus 250.00 ; Hyperlipidemia 272.4 and Hypothyroid 244.[address] [address] 14 Feb, 2015 [facility] [address] [id number] [address] [place] [address], [place] [address] Feb, [facility] [address] [id number] [address] [place] [address], [place] [address] Jan, [facility] [address] [id number] [address] [place] [address], [place] [address] Jan, [facility] [place] [facility] [address] [id number] [address] [place] [address], [place] [address] Jan, [facility] [address] [id number] [address] [place] [address], [place] [address] Jan, [facility] [address] [id number] [address] [place] [address], [place] [address] Jan, [facility] [address] [id number] [address] [place] [address], [place] [address] Jan, [facility] [address] [id number] [address] [place] [address], [place] [address] Jan, [facility] [address] [id number] [address] [place] [address], [place] [address] Jan, [facility] [address] [id number] [address] [place] [address], [place] [address] Jan, [facility] [address] [id number] [address] [place] [address], [place] [address] Jan, [facility] [place] [facility] [address] [id number] [address] [place] [address], [place] [address] Dec, [facility] [place] [facility] [address] [id number] [address] [place] [address], [place] [address] Dec, [facility] [place] [facility] [address] [id number] [address] [place] [address], [place] [address] Dec, [facility] [place] [facility] [address] [id number] [address] [place] [address], [place] [address] Dec, [facility] [place] [facility] [address] [id number] [address] [place] [address], [place] [address] Dec, 2014 [facility] [address] [id number] [address] [place] [address], [place] [address] Dec, 2014 [facility] [address] [id number] [address] [place] [address], [place] [address] Dec, 2014 [facility] [address] [id number] [address] [place] [address], [place] [address] Dec, 2014 [facility] [address] [id number] [address] [place] [address], [place] [address] Dec, 2014 [facility] [address] [id number] [address] [place] [address], [place] [address] Dec, 2014 [facility] [address] [id number] [address] [place] [address], [place] [address] Oct, [facility] [address] [id number] [address] [place] [address], [place] [address] Oct, [facility] [address] [id number] [address] [place] [address], [place] [address] Oct, [facility] [address] [id number] [address] [place] [address], [place] [id number] Oct, [facility] [address] [id number] [address] [place] [id number] Oct, [facility] [address] [id number] [address] [place] [id number] Oct, [facility] [address] [id number] [address] [place] [address], [place] [address] Oct, [facility] [address] [id number] [address] [place] [address], [place] [address] Oct, [facility] [address] [id number] [address] [place] [id number] Oct, [facility] [address] [address] [id number] [address] [place] [address], [place] [address] Oct, [facility] [address] [id number] [address] [place] [address], [place] [address] Oct, [facility] [address] [id number] [address] [place] [address], [place] [address] Oct, [facility] [address] [id number] [address] [place] [address], [place] [address] Oct, [facility] [address] [id number] [address] [place] [address], [place] [address] Oct, [facility] [address] [id number] [address] [place] [address], [place] [address] Sep, [facility] [address] [id number] [address] [place] [address], [place] [address] Sep, [facility] [address] [id number] [address] [place] [address], [place] [address] Sep, [facility] [address] [id number] [address] [place] [address], [place] [address] Sep, [facility] [address] [id number] [address] [place] [address], [place] [address] Sep, [facility] [address] [id number] [address] [place] [address], [place] [address] Sep, [facility] [address] [id number] [address] [place] [address], [place] [address] Sep, [facility] [address] [id number] [address] [place] [address], [place] [address] Sep, [facility] [address] [id number] [address] [place] [address], [place] [address] Sep, [facility] [address] [id number] [address] [place] [address], [place] [address] Aug, [facility] [address] [id number] [address] [place] [address], [place] [address] Aug, [facility] [address] [id number] [address] [place] [address], [place] [address] 17 Aug, 2013 [facility] [address] [id number] [address] [place] [address], [place] [address] 17 Aug, 2014 [facility] [address] [id number] [address] [place] [address], [place] [address] 16 Aug, 2013 [facility] [address] [id number] [address] [place] [address], [place] [address] Aug, [facility] [address] [id number] [address] [place] [address], [place] [address] Aug, [facility] [address] [id number] [address] [place] [address], [place] [address] Aug, [facility] [address] [id number] [address] [place] [address], [place] [address] Aug, [facility] [address] [id number] [address] [place] [address], [place] [address] 29 Jul, 2013 [facility] [address] [id number] [address] [place] [address], [place] [address] 29 Sep, 2013 [facility] [address] [id number] [address] [place] [address], [place] [address] 25 Sep, 2013 [facility] [address] [id number] [address] [place] [address], [place] [address] 25 Sep, 2013 [facility] [address] [id number] [address] [place] [address], [place] [address] 25 Sep, 2013 [facility] [address] [id number] [address] [place] [address], [place] [address] 25 Sep, 2013 [facility] [address] [id number] [address] [place] [address], [place] [address] 25 Jul, 2013 [facility] [address] [id number] [address] [place] [address], [place] [address] 25 Jul, 2013 [facility] [address] [id number] [address] [place] [address], [place] [address] Jul, [facility] [address] [id number] [address] [place] [address] Jul, [facility] [address] [id number] [facility] [place] [address] Jun, [facility] [address] [id number] [address] [place] [address] Jun, [facility] [address] [id number] [address] [place] [address], [place] [address] Jun, [facility] [address] [id number] [facility] [place] [address] Jun, [facility] [address] [id number] [address] [place] [address], [place] [address] Jun, [facility] [address] [id number] [address] [place] [address], [place] [address] Jun, [facility] [address] [id number] [address] [place] [address], [place] [address] Jun, [facility] [address] [id number] [address] [place] [address], [place] [address] Jun, [facility] [address] [id number] [address] [place] [address], [place] [address] Jun, [facility] [address] [id number] [address] [place] [address], [place] [address] Jun, [facility] [address] [id number] [address] [place] [address], [place] [address] Jun, [facility] [address] [id number] [address] [place] [address], [place] [address] Jun, [facility] [address] [id number] [address] [place] [address], [place] [address] May, [facility] [address] [id number] [address] [place] [address], [place] [address] May, [facility] [address] [id number] [address] [place] [address] May, [facility] [address] [id number] [address] [place] [address], [place] [address] May, [facility] [address] [id number] [address] [place] [address], [place] [address] May, [facility] [address] [id number] [address] [place] [address], [place] [address] May, [facility] [address] [id number] [address] [place] [address], [place] [address] March, [facility] [address] [id number] [address] [place] [address], [place] [address] March, [facility] [address] [id number] [address] [place] [address], [place] [address] March, [facility] [address] [id number] [address] [place] [address], [place] [address] March, [facility] [address] [id number] [address] [place] [address], [place] [address] March, [facility] [address] [id number] [address] [place] [address], [place] [address] March, [facility] [address] [id number] [address] [place] [address], [place] [address] Feb, [facility] [address] [id number] [address] [place] [address], [place] [address] Feb, [facility] [address] [id number] [address] [place] [address], [place] [address] Feb, [facility] [address] [id number] [address] [place] [address], [place] [address] Feb, [facility] [address] [id number] [address] [place] [address], [place] [address] Jan, [facility] [address] [id number] [address] [place] [address], [place] [address] Jan, [facility] [address] [id number] [address] [place] [address] Jan, [facility] [address] [id number] [address] [place] [address] Jan, [facility] [address] [id number] [address] [place] [address] Jan, [facility] [address] [id number] [address] [place] [address], [place] [address] Jan, [facility] [address] [id number] [address] [place] [address], [place] [address] Jan, [facility] [address] [id number] [address] [place] [address], [place] [address] Jan, [facility] [address] [id number] [address] [place] [address], [place] [address] Jan, [facility] [address] [id number] [address] [place] [address], [place] [address] Jan, [facility] [address] [id number] [address] [place] [address], [place] [address] Jan, [facility] [address] [id number] [address] [place] [address], [place] [address] Jan, [facility] [address] [id number] [address] [place] [address], [place] [address] Dec, [facility] [address] [id number] [address] [place] [address], [place] [address] Dec, [facility] [address] [id number] [address] [place] [address], [place] [address] Dec, [facility] [address] [id number] [address] [place] [address], [place] [address] Dec, [facility] [address] [id number] [address] [place] [address], [place] [address] Dec, [facility] [address] [id number] [address] [place] [address] Dec, [facility] [address] [id number] [address] [place] [address], [place] [address] Nov, [facility] [address] [id number] [address] [place] [address], [place] [address] Nov, [facility] [address] [id number] [address] [place] [address], [place] [address] Oct, [facility] [address] [id number] [address] [place] [address], [place] [address] Oct, [facility] [address] [id number] [address] [place] [address], [place] [address] Oct, [facility] [address] [id number] [address] [place] [address], [place] [address] Oct, [facility] [address] [id number] [address] [place] [address], [place] [address] Oct, [facility] [address] [id number] [address] [place] [address], [place] [address] Oct, [facility] [address] [id number] [address] [place] [address], [place] [address] Sep, [facility] [address] [id number] [address] [place] [address], [place] [address] Sep, [facility] [address] [id number] [address] [place] [address], [place] [address] Sep, [facility] [address] [id number] [address] [place] [address], [place] [address] Sep, [facility] [address] [id number] [address] [place] [address], [place] [address] Aug, [facility] [address] [id number] [address] [place] [address], [place] [address] Aug, [facility] [address] [id number] [address] [place] [address] Aug, [facility] [address] [id number] [address] [place] [address], [place] [address] 17 Jul, 2013 [facility] [address] [id number] [address] [place] [address], [place] [address] 14 Jul, 2013 [facility] [address] [id number] [address] [place] [address], [place] [address] 04 Jul, 2013 [facility] [address] [id number] [address] [place] [address], [place] [address] Jun, [facility] [address] [id number] [address] [place] [address], [place] [address] Jun, [facility] [address] [id number] [address] [place] [address], [place] [address] Jun, [facility] [address] [id number] [address] [place] [address], [place] [address] Apr, [facility] [address] [id number] [address] [place] [address], [place] [address] Apr, [facility] [address] [id number] [address] [place] [address], [place] [address] March, [facility] [address] [id number] [address] [place] [address], [place] [address] March, [facility] [address] [id number] [address] [place] [address], [place] [address] March, [facility] [address] [id number] [address] [place] [address], [place] [address] March, [facility] [address] [id number] [address] [place] [address], [place] [address] Feb, [facility] [address] [id number] [address] [place] [address], [place] [address] Jan, [facility] [address] [id number] [address] [place] [address], [place] [address] Dec, [facility] [address] [id number] [address] [place] [address], [place] [address] 08 Dec, 2012 [facility] [address] [id number] [address] [place] [address], [place] [address] Dec, [facility] [address] [id number] [address] [place] [address], [place] [address] Nov, [facility] [address] [id number] [address] [place] [address], [place] [address] Oct, [facility] [address] [id number] [address] [place] [address], [place] [address] Oct, [facility] [address] [id number] [address] [place] [address], [place] [address] Sep, [facility] [address] [id number] [address] [place] [address], [place] [address] Sep, [facility] [address] [id number] [address] [place] [address], [place] [address] Sep, [facility] [address] [id number] [address] [place] [address], [place] [address] Sep, [facility] [address] [id number] [address] [place] [address], [place] [address] Sep, [facility] [address] [id number] [address] [place] [address], [place] [address] Sep, [facility] [address] [id number] [address] [place] [address], [place] [address] Sep, [facility] [address] [id number] [address] [place] [address], [place] [address] Aug, [facility] [address] [id number] [address] [place] [address], [place] [address] Aug, [facility] [address] [id number] [address] [place] [address], [place] [address] Aug, [facility] [address] [id number] [address] [place] [address], [place] [address] Aug, [facility] [address] [id number] [address] [place] [address], [place] [address] 08 Aug, 2012 [facility] [address] [id number] [address] [place] [address], [place] [address] 08 Aug, 2012 [facility] [address] [id number] [address] [place] [address], [place] [address] Aug, [facility] [address] [id number] [address] [place] [address], [place] [address] Aug, [facility] [address] [id number] [address] [place] [address], [place] [address] Jul, [facility] [address] [id number] [address] [place] [address], [place] [address] Jul, [facility] [address] [id number] [address] [place] [address], [place] [address] Jun, [facility] [address] [id number] [address] [place] [address], [place] [address] May, [facility] [address] [id number] [address] [place] [address], [place] [address] Apr, [facility] [address] [id number] [address] [place] [address], [place] [address] Apr, [facility] [address] [id number] [address] [place] [address], [place] [address] Apr, [facility] [address] [id number] [address] [place] [address], [place] [address] March, [facility] [address] [id number] [address] [place] [address], [place] [address] March, [facility] [address] [id number] [address] [place] [address], [place] [address] March, [facility] [address] [id number] [address] [place] [address], [place] [address] March, [facility] [address] [id number] [address] [place] [address], [place] [address] March, [facility] [address] [id number] [address] [place] [address], [place] [address] March, [facility] [address] [id number] [address] [place] [address], [place] [address] March, [facility] [address] [id number] [address] [place] [address], [place] [address] Jan, [facility] [address] [id number] [address] [place] [address], [place] [address] Jan, [facility] [address] [id number] [address] [place] [address], [place] [address] Jan, [facility] [address] [id number] [address] [place] [address], [place] [address] Jan, [facility] [address] [id number] [address] [place] [address], [place] [address] Jan, [facility] [address] [id number] [address] [place] [address], [place] [address] Dec, [facility] [address] [id number] [address] [place] [address], [place] [address] Dec, [facility] [address] [id number] [address] [place] [address], [place] [address] Nov, [facility] [address] [id number] [address] [place] [address], [place] [address] Nov, [facility] [address] [id number] [address] [place] [address], [place] [address] Nov, [facility] [address] [id number] [address] [place] [address], [place] [address] Nov, [facility] [address] [id number] [address] [place] [address], [place] [address] Oct, [facility] [address] [id number] [address] [place] [address], [place] [address] Oct, [facility] [address] [id number] [address] [place] [address], [place] [address] 14 Sep, 2011 [facility] [address] [id number] [address] [place] [address], [place] [address] 10 Sep, 2011 [facility] [address] [id number] [address] [place] [address], [place] [address] 10 Sep, 2011 [facility] [address] [id number] [address] [place] [address], [place] [id number] 11 May, 2011 [facility] [address] [id number] [address] [place] [address], [place] [address] 20 Nov, 2010 [facility] [address] [id number] [address] [place] [address], [place] [id number] 29 Oct, 2010 [facility] [address] [id number] [address] [place] [address], [place] [address] 14 Oct, 2010 [facility] [address] [id number] [address] [place] [address], [place] [id number] 08 Oct, 2010 [facility] [address] [id number] [address] [place] [address], [place] [address] 15 Sep, 2010 [facility] [address] [id number] [address] [place] [address], [place] [address] 02 Sep, 2010 [facility] [address] [id number] [address] [place] [address], [place] [address] Aug, [facility] [address] [id number] [address] [place] [address], [place] [address] March, [facility] [address] [id number] [address] [place] [address], [place] [address] 17 Oct, 2009 [facility] [address] [id number] [address] [place] [address], [place] [address] Oct, [facility] [address] [id number] [address] [place] [address], [place] [address] Oct, [facility] [address] [id number] [address] [place] [address], [place] [address] Oct, [facility] [address] [id number] [address] [place] [id number] Sep, [facility] [address] [id number] [address] [place] [id number] Sep, [facility] [address] [id number] [address] [place] [id number] Sep, [facility] [address] [facility] [id number] [address] [place] [id number] Aug, [facility] [address] [facility] [id number] [address] [place] [id number] Aug, [facility] [address] [facility] [id number] [address] [place] [id number] Aug, [facility] [address] [facility] [id number] [address] [place] [id number] Jan, IMMUNIZATIONS No Known Immunizations SOCIAL HISTORY Never Assessed REASON FOR VISIT PA for CT abd/pelvis without contrast PLAN OF CARE VITAL SIGNS MEDICATIONS No [...]
--- OUTSIDE RECORDS SUMMARY | 2020-06-13 16:24 | XMS REPORT ---
Author Author Jah PARKER Organization [facility] Address [address] [place] [address] Care Team Providers Care Polymer Specialist Name Role Phone PARKERSHAYLEE MckeonELE Unavailable PROBLEMS Type Condition ICD9-CM Code ECA62-UL Code Onset Dates Condition S tatus SNOMED Code Problem Type 2 diabetes mellitus with hyperglycemia E11.65 Active 60069270 Problem Pulmonary emphysema, unspecified emphysema type J4 3.9 Active 02909438 Problem Essential (primary) hypertension I10 Active 83300333 Problem Hypertriglyceridemia E78.1 Active 056941527 Problem Major depressive disorder, recurrent episode, moderate F33.1 Active 178524306 Problem Recurrent major depressive disorder, in partial remission F33.41 Active 51302209 Problem Current non-adherence to medical treatment Z91.19 Active 8578385 Problem Anxiety disorder, unspecified type F41.9 Active 631521936 Problem Chronic fatigue R53.82 Active 8422 9001 Problem Chronic pain G89.29 Active 6326269 1 Problem Neuropathy G62.9 Active 543718784 Problem Thrombocytosis D47.3 Active 06345 09 Problem Mixed hyperlipidemia E78.2 Active 071654606 Problem Gastroesophageal reflux disease with esophagitis K 21.0 Active 377611118 Problem Hypothyroid E03.9 Active 73233200 Problem Irritable bowel syndrome with diarrhea K58.0 Active 805323650 Problem Overactive bladder N32.81 Active 2 29361291 Problem group home current use of insulin Z79.4 Active 353280016 ALLERGIES No Information ENCOUNTERS Encounter Location Date Diagnosis [facility] [address] [facility] [id number] [address] [place] [address] Jun, Type 2 diabetes mellitus wit h hyperglycemia E11.65 ; Neuropathy G62.9 ; Recurrent major depressive disorder, in partial remission F33.41 ; Chronic pain G89.29 and Hypertriglyceridemia E78.1 [facility] [address] [facility] [id number] [address] [place] [address] Jun, Hypothyroid E03.9 [facility] [address] [id number] [address] [place] [address] Jun, Major depressive disorder, r ecurrent episode, moderate F33.1 and Anxiety disorder, unspecified type F41.9 [facility] [address] [id number] [address] [place] [phone] Jun, [place] [address] [facility] [id number] [address] [place] [address] Jun, Type 2 diabetes mellitus wit h hyperglycemia E11.65 ; 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 ; Recurrent major depressive disorder, in partial remission F33.41 ; Hypothyroid E03.9 ; Candidal dermatitis B37.2 and Weakness generalized R53.1 [place] [address] [facility] [id number] [address] [place] [address] May, [place] [address] [id number] [address] [place] [address] May, [place] [address] [id number] [address] [place] [address] May, [place] [address] [facility] [id number] [address] [place] [address] May, Generalized abdominal pain R 10.84 and Candidal dermatitis B37.2 [place] [address] [facility] [id number] [address] [place] [address] May, [place] [address] [id number] [address] [place] [address] May, [place] [address] [facility] [id number] [address] [place] [address] May, Nodular radiologic density R 93.8 ; Weight loss, unintentional R63.4 and Pulmonary emphysema, unspecified emphysema type J43.9 [place] [address] [facility] [id number] [address] [place] [address] May, Chronic pain G89.29 [facility] [address] [id number] [address] [place] [phone] 09 May, 2018 Syncope and collapse R55 ; C hronic fatigue R53.[address] lung screening R91.8 [facility] [address] [id number] [address] [place] [address] May, [facility] [address] [id number] [address] [place] [address] Apr, Chronic fatigue R53.82 ; Abn ormal chest CT R93.8 ; Elevated erythrocyte sedimentation rate R70.0 ; Hypothyroid E03.9 and Recurrent major depressive disorder, in partial remission F33.41 [facility] [address] [id number] [address] [place] [address] Apr, Hypothyroid E03.9 [facility] [address] [id number] [address] [place] [address] Apr, Depression F32.9 [facility] [address] [id number] [address] [place] [id number] Apr, [facility] [address] [id number] [address] [place] [address] March, [facility] [address] [facility] [id number] [address] [place] [address] March, Hypothyroid E03.9 [facility] [address] [facility] [id number] [address] [place] [address] March, Diabetes mellitus E11.9 and Hypothyroid E03.9 [facility] [address] [id number] [address] [place] [address] March, Diabetes mellitus E11.9 [facility] [address] [facility] [id number] [address] [place] [address] March, Hypothyroid E03.9 and Elevat ed liver enzymes R74.8 [facility] [address] [facility] [id number] [address] [place] [address] March, Type 2 diabetes mellitus wit h [...] major depressive disorder, in partial remission F33.41 [place] [id number] [place] [address] Feb, Chronic pain G89.29 [place] [id number] [place] [address] Feb, Type 2 diabetes mellitus wit h hyperglycemia E11.65 and Skin lesion of scalp L98.9 [place] [id number] [address] [place] [address] Feb, [place] [address] [address] Jan, Type 2 diabetes mellitus wit h [...] and Irritable bowel syndrome with diarrhea K58.0 [place] [address] [place] [id number] [address] [place] [address] Jan, [place] [address] [place] [id number] [address] [place] [address] Jan, Controlled substance agreeme nt signed Z79.899 [place] [address] [place] [id number] [address] [place] [address] Dec, Type 2 diabetes mellitus wit h [...] treatment Z91.19 and Overweight (BMI 25.0-29.9) E66.3 [place] [address] [facility] [id number] [address] [place] [address] 02 Dec, 2017 Controlled substance agreeme nt signed Z79.899 [place] [address] [place] [id number] [address] [place] [address] Nov, Type 2 diabetes mellitus wit h hyperglycemia E11.65 and Current non- adherence to medical treatment Z91.19 [place] [address] [facility] [id number] [address] [place] [phone] Nov, [place] [address] [facility] [id number] [address] [place] [address] Nov, Chronic pain G89.29 [place] [address] [place] [id number] [address] [place] [address] Nov, [place] [address] [place] [id number] [address] [place] [phone] Nov, Hypothyroid E03.9 [place] [address] [facility] [id number] [address] [place] [address] Nov, Hypothyroid E03.9 [place] [address] [facility] [id number] [address] [place] [address] Nov, Pulmonary emphysema, unspeci fied emphysema type J43.9 and Irritable bowel syndrome with diarrhea K58.0 [place] [address] [facility] [id number] [address] [place] [address] Oct, [place] [address] [place] [id number] [address] [place] [address] Oct, [place] [address] [place] [address] Oct, [place] [address] [facility] [id number] [address] [place] [address] Oct, [place] [address] [place] [id number] [address] [place] [address] Oct, Chronic pain G89.29 [place] [address] [address] Oct, Diabetes mellitus E11.9 ; De pression F32.9 ; Mixed hyperlipidemia E78.2 ; Hypotension, unspecified hypotension type I95.9 ; Pulmonary emphysema, unspecified emphysema type J43.9 and Weight loss, unintentional R63.4 [place] [address] [address] Oct, Chronic pain G89.29 [place] [address] [address] Sep, Chronic pain G89.29 [place] [address] [address] Sep, Hypothyroid E03.9 and Diabet es mellitus E11.9 [place] [address] [address] Aug, Type 2 diabetes mellitus wit h hyperglycemia E11.65 ; 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 ; Essential (primary) hypertension I10 ; Hypothyroid E03.9 ; Neuropathy G62.9 ; Chronic pain G89.29 ; Mixed hy perlipidemia E78.2 and Encounter for immunization Z23 [place] [address] [place] [id number] [address] [place] [address] Aug, Chronic pain G89.29 [place] [address] [place] [id number] [address] [place] [address] Aug, Overactive bladder N32.81 ; Diabetes mellitus E11.9 and Chronic pain G89.29 [place] [address] [place] [address] [place] [address] Jul, [facility] [address] [facility] [id number] [address] [place] [phone] Jun, [facility] [address] [facility] [id number] [address] [place] [address] Jun, [facility] [address] [facility] [id number] [address] [place] [address] Jun, Hypothyroid E03.9 [facility] [address] [facility] [id number] [address] [place] [address] Jun, Diabetes mellitus E11.9 ; Hy pothyroid E03.9 ; Neuropathy G62.9 ; Chronic pain G89.29 and Neck mass R22.1 [facility] [address] [facility] [id number] [address] [place] [phone] Apr, [facility] [address] [facility] [id number] [address] [place] [address] Apr, Acute cystitis without hemat uria N30.00 [facility] [address] [facility] [id number] [address] [place] [address] March, [facility] [address] [facility] [id number] [address] [place] [address] March, [facility] [address] [facility] [id number] [address] [place] [address] March, Near syncope R55 [facility] [address] [facility] [id number] [address] [place] [phone] Feb, [facility] [address] [facility] [id number] [address] [place] [address] Feb, Chronic pain G89.29 [facility] [address] [facility] [id number] [address] [place] [address] Feb, [facility] [address] [facility] [id number] [address] [place] [address] Feb, [facility] [address] [place] [id number] [address] [place] [address] Jan, Chronic pain G89.29 [facility] [address] [address] Jan, [facility] [address] [address] 16 Jan, 2017 [facility] [address] [address] 14 Jan, 2017 Diabetes mellitus E11.9 ; Hy pothyroid E03.9 ; GERD (gastroesophageal reflux disease) K21.9 ; Insomnia G47.00 ; Functional diarrhea K59.1 ; Neuropathy G62.9 ; Depression F32.9 ; Chronic pain G89.29 ; Irritable bowel syndrome with diarrhea K58.0 ; Overactive bladder N32.81 ; Mixed hyperlipidemia E78.2 and Bronchitis J40 [facility] [address] [address] Dec, [facility] [address] [place] [id number] [address] [place] [address] Dec, [facility] [address] [address] Dec, [facility] [address] [place] [id number] [address] [place] [address] Dec, [facility] [address] [place] [id number] [address] [place] [address] Dec, Chronic pain G89.29 [facility] [address] [place] [id number] [address] [place] [address] Dec, [facility] [address] [place] [id number] [address] [place] [address] Dec, [facility] [address] [place] [id number] [address] [place] [address] Dec, Type 2 diabetes mellitus wit h foot ulcer E11.621 [place] [address] [place] [id number] [address] [place] [address] 17 Dec, 2016 Type 2 diabetes mellitus wit h foot ulcer E11.621 [place] [address] [place] [id number] [place] [address] 14 Dec, 2016 HTN (hypertension) I10 ; Dep ression F32.9 ; Type 2 diabetes mellitus with foot ulcer E11.621 ; Functional diarrhea K59.1 ; Irritable bowel syndrome with diarrhea K58.0 ; Chronic pain G89.29 ; Insomnia G47.00 ; Overactive bladder N32.81 ; Mixed hyperlipidemia E78.2 ; Gastroesophageal reflux disease with esophagitis K21.0 and Acquired hypothyroidism E03.9 [place] [address] [address] Nov, [place] [address] [address] Oct, [place] [address] [address] Oct, [place] [address] [address] Oct, [place] [address] [address] Sep, Functional diarrhea K59.1 ; HTN (hypertension) I10 ; Diabetes mellitus E11.9 ; Depression F32.9 ; Overactive bladder N32.81 ; Mixed hyperlipidemia E78.2 ; Gastroesophageal reflux disease without esophagitis K21.9 ; Chronic pain G89.29 ; Insomnia G47.00 and Acquired hypothyroidism E03.9 [place] [address] [address] Sep, [place] [address] [address] Aug, Encounter for immunization Z 23 [place] [address] [address] Aug, [place] [address] [address] Jul, [place] [address] [address] Jun, Type 2 diabetes mellitus wit hout complications E11.9 ; HTN (hypertension) I10 ; Hypothyroid E03.9 ; Neuropathy G62.9 ; Depression F32.9 ; Chronic pain G89.29 ; GERD (gastroesophageal reflux disease) K21.9 ; Insomnia G47.00 ; Overactive bladder N32.81 ; Mixed hyperlipidemia E78.2 ; Diarrhea of infectious origin A09 and Environmental allergies Z91.09 [place] [address] [address] Apr, [place] [address] [address] March, Hypothyroidism, unspecified E03.9 and Mixed hyperlipidemia E78.2 [place] [address] [address] March, Diabetes mellitus E11.9 ; HT N (hypertension) I10 ; Hypothyroid E03.9 ; Depression F32.9 ; Overactive bladder N32.81 ; Other chronic pain G89.29 ; Lumbago with sciatica, unspecified side M54.40 ; Environmental allergies Z91.09 and Gastroesophageal reflux disease, esophagitis presence not specified K21.9 [place] [address] [address] March, [place] [address] [address] Jan, HTN (hypertension) I10 ; Hyp othyroid E03.9 ; Neuropathy G62.9 ; Diabetes mellitus E11.9 ; Chronic pain G89.29 ; GERD (gastroesophageal reflux disease) K21.9 ; Overactive bladder N32.81 and Depression F32.9 [place] [address] [address] Dec, Ear pain, left H92.02 ; HTN (hypertension) I10 ; Hypothyroid E03.9 ; Neuropathy G62.9 ; Diabetes mellitus E11.9 ; Depression F32.9 ; GERD (gastroesophageal reflux disease) K21.9 ; Insomnia G47.00 and Overactive bladder N32.81 [place] [address] [place] [address] Nov, Overactive bladder N32.81 an d Chronic pain G89.29 [place] [address] [place] [id number] [place] [address] Nov, Kidney failure N19 [place] [address] [place] [id number] [place] [address] Nov, [place] [address] [place] [id number] [address] [place] [address] Nov, [place] [address] [address] Nov, Diabetes mellitus E11.9 ; De pression F32.9 ; Chronic pain G89.29 ; GERD (gastroesophageal reflux disease) K21.9 ; Insomnia G47.00 ; HTN (hypertension) I10 ; Hypothyroid E03.9 ; COPD (chronic obstructive pulmonary disease) J44.9 ; Bladder incontinence R32 and Incontinence R32 [place] [address] [place] [address] Sep, Type 2 diabetes mellitus wit h foot ulcer E11.621 and Chromosomal abnormality, 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 [place] [address] [place] [id number] [address] [place] [address] Sep, [place] [address] [place] [id number] [place] [address] Aug, [place] [address] [place] [id number] [address] [place] [address] Aug, [place] [address] [place] [id number] [place] [address] Aug, HTN (hypertension) I10 ; Enc ounter for immunization Z23 ; Hypothyroid E03.9 ; Neuropathy G62.9 ; Diabetes mellitus E11.9 ; Depression F32.9 ; Chronic pain G89.29 ; GERD (gastroesophageal reflux disease) K21.9 ; Insomnia G47.00 and COPD (chronic obstructive pulmonary disease) J44.[address] [address] Jun, [address] [address] Jun, [address] [address] May, Essential hypertension, ivis gn 401.1 ; Unspecified hypothyroidism 244.9 ; Insomnia, unspecified 780.52 ; Shortness of breath 786.05 ; Depression 311 ; COPD (chronic obstructive pulmonary disease) 496 ; GERD (gastroesophageal reflux disease) 530.81 and Diabetes 1.5, 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 [address] May, [address] [address] May, [address] [address] May, Shortness of breath 786.05 ; Essential hypertension, benign 401.1 ; Diabetes mellitus 250.00 ; Hyperlipidemia 272.4 ; Hypothyroid 244.9 ; Insomnia 780.52 and Cough 786.[address] [address] Apr, [address] [address] March, Shortness of breath 786.05 ; Nausea with vomiting 787.01 ; Essential hypertension, benign 401.1 ; Diabetes mellitus 250.00 ; Hyperlipidemia 272.4 and Hypothyroid 244.[address] [address] 14 Feb, 2015 [facility] [address] [id number] [address] [place] [address], [place] [address] Feb, [facility] [address] [id number] [address] [place] [address], [place] [address] Jan, [facility] [address] [id number] [address] [place] [address], [place] [address] Jan, [facility] [place] [facility] [address] [id number] [address] [place] [address], [place] [address] Jan, [facility] [address] [id number] [address] [place] [address], [place] [address] Jan, [facility] [address] [id number] [address] [place] [address], [place] [address] Jan, [facility] [address] [id number] [address] [place] [address], [place] [address] Jan, [facility] [address] [id number] [address] [place] [address], [place] [address] Jan, [facility] [address] [id number] [address] [place] [address], [place] [address] Jan, [facility] [address] [id number] [address] [place] [address], [place] [address] Jan, [facility] [address] [id number] [address] [place] [address], [place] [address] Jan, [facility] [place] [facility] [address] [id number] [address] [place] [address], [place] [address] Dec, [facility] [place] [facility] [address] [id number] [address] [place] [address], [place] [address] Dec, [facility] [place] [facility] [address] [id number] [address] [place] [address], [place] [address] Dec, [facility] [place] [facility] [address] [id number] [address] [place] [address], [place] [address] Dec, [facility] [place] [facility] [address] [id number] [address] [place] [address], [place] [address] Dec, 2014 [facility] [address] [id number] [address] [place] [address], [place] [address] Dec, 2014 [facility] [address] [id number] [address] [place] [address], [place] [address] Dec, 2014 [facility] [place] [facility] [address] [id number] [address] [place] [address], [place] [address] Dec, 2014 [facility] [address] [id number] [address] [place] [address], [place] [address] Dec, 2014 [facility] [address] [id number] [address] [place] [address], [place] [address] Dec, 2014 [facility] [address] [id number] [address] [place] [address], [place] [address] Oct, [facility] [address] [id number] [address] [place] [address], [place] [address] Oct, [facility] [address] [id number] [address] [place] [address], [place] [address] Oct, [facility] [address] [id number] [address] [place] [address], [place] [address] Oct, [facility] [address] [id number] [address] [place] [id number] Oct, [facility] [address] [id number] [address] [place] [id number] Oct, [facility] [address] [id number] [address] [place] [address], [place] [address] Oct, [facility] [address] [id number] [address] [place] [address], [place] [address] Oct, [facility] [address] [id number] [address] [place] [id number] Oct, [facility] [address] [id number] [address] [place] [address], [place] [address] Oct, [facility] [address] [id number] [address] [place] [address], [place] [address] Oct, [facility] [address] [id number] [address] [place] [address], [place] [address] Oct, [facility] [address] [id number] [address] [place] [address], [place] [address] Oct, [facility] [address] [id number] [address] [place] [address], [place] [address] Oct, [facility] [address] [id number] [address] [place] [address], [place] [address] Sep, [facility] [address] [id number] [address] [place] [address], [place] [address] Sep, [facility] [address] [id number] [address] [place] [address], [place] [address] Sep, [facility] [address] [id number] [address] [place] [address], [place] [address] Sep, [facility] [address] [id number] [address] [place] [address], [place] [address] Sep, [facility] [address] [id number] [address] [place] [address], [place] [address] Sep, [facility] [address] [id number] [address] [place] [address], [place] [address] Sep, [facility] [address] [id number] [address] [place] [address], [place] [address] Sep, [facility] [address] [id number] [address] [place] [address], [place] [address] Sep, [facility] [address] [id number] [address] [place] [address], [place] [address] Aug, [facility] [address] [id number] [address] [place] [address], [place] [address] Aug, [facility] [address] [id number] [address] [place] [address], [place] [address] 17 Aug, 2013 [facility] [facility] [address] [id number] [address] [place] [address], [place] [address] 17 Aug, 2014 [facility] [address] [id number] [address] [place] [address], [place] [address] 16 Aug, 2013 [facility] [address] [id number] [address] [place] [address], [place] [address] Aug, [facility] [address] [id number] [address] [place] [address], [place] [address] Aug, [facility] [address] [id number] [address] [place] [address], [place] [address] Aug, [facility] [address] [id number] [address] [place] [address], [place] [address] Aug, [facility] [address] [id number] [address] [place] [address], [place] [address] 29 Jul, 2013 [facility] [address] [id number] [address] [place] [address], [place] [address] 29 Sep, 2013 [facility] [address] [id number] [address] [place] [address], [place] [address] 25 Sep, 2013 [facility] [address] [id number] [address] [place] [address], [place] [address] 25 Sep, 2013 [facility] [address] [id number] [address] [place] [address], [place] [address] 25 Sep, 2013 [facility] [address] [id number] [address] [place] [address], [place] [address] 25 Sep, 2013 [facility] [address] [id number] [address] [place] [address], [place] [address] 25 Jul, 2013 [facility] [address] [id number] [address] [place] [address], [place] [address] 25 Jul, 2013 [facility] [address] [id number] [address] [place] [address], [place] [address] Jul, [facility] [address] [id number] [facility] [address] Jul, [facility] [address] [id number] [facility] [address] Jun, [facility] [address] [id number] [facility] [address] Jun, [facility] [address] [id number] [address] [place] [address], [place] [address] Jun, [facility] [address] [id number] [facility] [address] Jun, [facility] [address] [id number] [address] [place] [address], [place] [address] Jun, [facility] [address] [id number] [address] [place] [address], [place] [address] Jun, [facility] [address] [id number] [address] [place] [address], [place] [address] Jun, [facility] [address] [id number] [address] [place] [address], [place] [address] Jun, [facility] [address] [id number] [address] [place] [address], [place] [address] Jun, [facility] [address] [id number] [address] [place] [address], [place] [address] Jun, [facility] [address] [id number] [address] [place] [address], [place] [address] Jun, [facility] [address] [id number] [address] [place] [address], [place] [address] Jun, [facility] [address] [id number] [address] [place] [address], [place] [address] May, [facility] [address] [id number] [address] [place] [address], [place] [address] May, [facility] [address] [id number] [facility] [address] May, [facility] [address] [id number] [address] [place] [address], [place] [address] May, [facility] [address] [id number] [address] [place] [address], [place] [address] May, [facility] [address] [id number] [address] [place] [address], [place] [address] May, [facility] [address] [id number] [address] [place] [address], [place] [address] March, [facility] [address] [id number] [address] [place] [address], [place] [address] March, [facility] [address] [id number] [address] [place] [address], [place] [address] March, [facility] [address] [id number] [address] [place] [address], [place] [address] March, [facility] [address] [id number] [address] [place] [address], [place] [address] March, [facility] [address] [id number] [address] [place] [address], [place] [address] March, [facility] [address] [id number] [address] [place] [address], [place] [address] Feb, [facility] [address] [id number] [address] [place] [address], [place] [address] Feb, [facility] [address] [id number] [address] [place] [address], [place] [address] Feb, [facility] [address] [id number] [address] [place] [address], [place] [address] Feb, [facility] [address] [id number] [address] [place] [address], [place] [address] Jan, [facility] [address] [id number] [address] [place] [address], [place] [address] Jan, [facility] [address] [id number] [facility] [address] Jan, [facility] [address] [id number] [facility] [address] Jan, [facility] [address] [id number] [facility] [address] Jan, [facility] [address] [id number] [address] [place] [address], [place] [address] Jan, [facility] [address] [id number] [address] [place] [address], [place] [address] Jan, [facility] [address] [id number] [address] [place] [address], [place] [address] Jan, [facility] [address] [id number] [address] [place] [address], [place] [address] Jan, [facility] [address] [id number] [address] [place] [address], [place] [address] Jan, [facility] [address] [id number] [address] [place] [address], [place] [address] Jan, [facility] [address] [id number] [address] [place] [address], [place] [address] Jan, [facility] [address] [id number] [address] [place] [address], [place] [address] Dec, [facility] [address] [id number] [address] [place] [address], [place] [address] Dec, [facility] [address] [id number] [address] [place] [address], [place] [address] Dec, [facility] [address] [id number] [address] [place] [address], [place] [address] Dec, [facility] [address] [id number] [address] [place] [address], [place] [address] Dec, [facility] [address] [id number] [address] [place] [address] Dec, [facility] [address] [id number] [address] [place] [address], [place] [address] Nov, [facility] [address] [id number] [address] [place] [address], [place] [address] Nov, [facility] [address] [id number] [address] [place] [address], [place] [address] Oct, [facility] [address] [id number] [address] [place] [address], [place] [address] Oct, [facility] [address] [id number] [address] [place] [address], [place] [address] Oct, [facility] [address] [id number] [address] [place] [address], [place] [address] Oct, [facility] [address] [id number] [address] [place] [address], [place] [address] Oct, [facility] [address] [id number] [address] [place] [address], [place] [address] Oct, [facility] [address] [id number] [address] [place] [address], [place] [address] Sep, [facility] [address] [id number] [address] [place] [address], [place] [address] Sep, [facility] [address] [id number] [address] [place] [address], [place] [address] Sep, [facility] [address] [id number] [address] [place] [address], [place] [address] Sep, [facility] [address] [id number] [address] [place] [address], [place] [address] Aug, [facility] [address] [id number] [address] [place] [address], [place] [address] Aug, [facility] [address] [id number] [address] [place] [address] Aug, [facility] [address] [id number] [address] [place] [address], [place] [address] 17 Jul, 2013 [facility] [address] [id number] [address] [place] [address], [place] [address] 14 Jul, 2013 [facility] [address] [id number] [address] [place] [address], [place] [address] 04 Jul, 2013 [facility] [address] [id number] [address] [place] [address], [place] [address] Jun, [facility] [address] [id number] [address] [place] [address], [place] [address] Jun, [facility] [address] [id number] [address] [place] [address], [place] [address] Jun, [facility] [address] [id number] [address] [place] [address], [place] [address] Apr, [facility] [address] [id number] [address] [place] [address], [place] [address] Apr, [facility] [address] [id number] [address] [place] [address], [place] [address] March, [facility] [address] [id number] [address] [place] [address], [place] [address] March, [facility] [address] [id number] [address] [place] [address], [place] [address] March, [facility] [address] [id number] [address] [place] [address], [place] [address] March, [facility] [address] [id number] [address] [place] [address], [place] [address] Feb, [facility] [address] [id number] [address] [place] [address], [place] [address] Jan, [facility] [address] [id number] [address] [place] [address], [place] [address] Dec, [facility] [address] [id number] [address] [place] [address], [place] [address] 08 Dec, 2012 [facility] [address] [id number] [address] [place] [address], [place] [address] Dec, [facility] [address] [id number] [address] [place] [address], [place] [address] Nov, [facility] [address] [id number] [address] [place] [address], [place] [address] Oct, [facility] [address] [id number] [address] [place] [address], [place] [address] Oct, [facility] [address] [id number] [address] [place] [address], [place] [address] Sep, [facility] [address] [id number] [address] [place] [address], [place] [address] Sep, [facility] [address] [id number] [address] [place] [address], [place] [address] Sep, [facility] [address] [id number] [address] [place] [address], [place] [address] Sep, [facility] [address] [id number] [address] [place] [address], [place] [address] Sep, [facility] [address] [id number] [address] [place] [address], [place] [address] Sep, [facility] [address] [id number] [address] [place] [address], [place] [address] Sep, [facility] [address] [id number] [address] [place] [address], [place] [address] Aug, [facility] [address] [id number] [address] [place] [address], [place] [address] Aug, [facility] [address] [id number] [address] [place] [address], [place] [address] Aug, [facility] [address] [id number] [address] [place] [address], [place] [address] Aug, [facility] [address] [id number] [address] [place] [address], [place] [address] 08 Aug, 2012 [facility] [address] [id number] [address] [place] [address], [place] [address] 08 Aug, 2012 [facility] [address] [id number] [address] [place] [address], [place] [address] Aug, [facility] [address] [id number] [address] [place] [address], [place] [address] Aug, [facility] [address] [id number] [address] [place] [address], [place] [address] Jul, [facility] [address] [id number] [address] [place] [address], [place] [address] Jul, [facility] [address] [id number] [address] [place] [address], [place] [address] Jun, [facility] [address] [id number] [address] [place] [address], [place] [address] May, [facility] [address] [id number] [address] [place] [address], [place] [address] Apr, [facility] [address] [id number] [address] [place] [address], [place] [address] Apr, [facility] [address] [id number] [address] [place] [address], [place] [address] Apr, [facility] [address] [id number] [address] [place] [address], [place] [address] March, [facility] [address] [id number] [address] [place] [address], [place] [address] March, [facility] [address] [id number] [address] [place] [address], [place] [address] March, [facility] [address] [id number] [address] [place] [address], [place] [address] March, [facility] [address] [id number] [address] [place] [address], [place] [address] March, [facility] [address] [id number] [address] [place] [address], [place] [address] March, [facility] [address] [id number] [address] [place] [address], [place] [address] March, [facility] [address] [id number] [address] [place] [address], [place] [address] Jan, [facility] [address] [id number] [address] [place] [address], [place] [address] Jan, [facility] [address] [id number] [address] [place] [address], [place] [address] Jan, [facility] [address] [id number] [address] [place] [address], [place] [address] Jan, [facility] [address] [id number] [address] [place] [address], [place] [address] Jan, [facility] [address] [id number] [address] [place] [address], [place] [address] Dec, [facility] [address] [id number] [address] [place] [address], [place] [address] Dec, [facility] [address] [id number] [address] [place] [address], [place] [address] Nov, [facility] [address] [id number] [address] [place] [address], [place] [address] Nov, [facility] [address] [id number] [address] [place] [address], [place] [address] Nov, [facility] [address] [id number] [address] [place] [address], [place] [address] Nov, [facility] [address] [id number] [address] [place] [address], [place] [address] Oct, [facility] [address] [id number] [address] [place] [address], [place] [address] Oct, [facility] [address] [id number] [address] [place] [address], [place] [address] 14 Sep, 2011 [facility] [address] [id number] [address] [place] [address], [place] [address] 10 Sep, 2011 [facility] [address] [id number] [address] [place] [address], [place] [address] 10 Sep, 2011 [facility] [address] [id number] [address] [place] [address], [place] [address] 11 May, 2011 [facility] [address] [id number] [address] [place] [address], [place] [address] 20 Nov, 2010 [facility] [address] [id number] [address] [place] [address], [place] [address] 29 Oct, 2010 [facility] [address] [id number] [address] [place] [address], [place] [address] 14 Oct, 2010 [facility] [address] [id number] [address] [place] [address], [place] [address] 08 Oct, 2010 [facility] [address] [id number] [address] [place] [address], [place] [address] 15 Sep, 2010 [facility] [address] [id number] [address] [place] [address], [place] [address] 02 Sep, 2010 [facility] [address] [id number] [address] [place] [address], [place] [address] Aug, [facility] [address] [id number] [address] [place] [address], [place] [address] March, [facility] [address] [id number] [address] [place] [address], [place] [address] 17 Oct, 2009 [facility] [address] [id number] [address] [place] [address], [place] [address] Oct, [facility] [address] [id number] [address] [place] [address], [place] [address] Oct, [facility] [address] [id number] [address] [place] [address], [place] [address] Oct, [facility] [address] [facility] [id number] [address] [place] [address] Sep, [facility] [address] [facility] [id number] [address] [place] [phone] Sep, [facility] [address] [facility] [id number] [address] [place] [phone] Sep, [facility] [address] [facility] [id number] [address] [place] [phone] Aug, [facility] [address] [facility] [id number] [address] [place] [phone] Aug, [facility] [address] [facility] [id number] [address] [place] [id number] Aug, [facility] [address] [facility] [id number] [address] [place] [phone] Jan, IMMUNIZATIONS No Known Immunizations SOCIAL HISTORY Never Assessed REASON FOR VISIT Schedule Test PLAN OF CARE VITAL SIGNS MEDICATIONS No [...]
--- OUTSIDE RECORDS SUMMARY | 2020-06-13 16:24 | XMS REPORT ---
Author Author Jah PARKER Organization [facility], [place] Address [address] [place] [address] Care Team Providers Care Feed Crusher Name Role Phone PARKERSHAYLEE MckeonELE Unavailable PROBLEMS Type Condition ICD9-CM Code [id number]-LD Code Onset Dates Condition S tatus SNOMED Code Problem Type 2 diabetes mellitus with hyperglycemia E11.65 Active 38587945 Problem Pulmonary emphysema, unspecified emphysema type J4 3.9 Active 05692864 Problem Essential (primary) hypertension I10 Active 85631709 Problem Hypertriglyceridemia E78.1 Active 969436096 Problem Major depressive disorder, recurrent episode, moderate F33.1 Active 266566631 Problem Recurrent major depressive disorder, in partial remission F33.41 Active 16515720 Problem Current non-adherence to medical treatment Z91.19 Active 6121093 Problem Anxiety disorder, unspecified type F41.9 Active 586622102 Problem Chronic fatigue R53.82 Active 8422 9001 Problem Chronic pain G89.29 Active 1773876 1 Problem Neuropathy G62.9 Active 031429274 Problem Thrombocytosis D47.3 Active 95481 09 Problem Mixed hyperlipidemia E78.2 Active 102555776 Problem Gastroesophageal reflux disease with esophagitis K 21.0 Active 504483468 Problem Hypothyroid E03.9 Active 67374258 Problem Irritable bowel syndrome with diarrhea K58.0 Active 070348740 Problem Overactive bladder N32.81 Active 2 06170875 Problem [facility] current use of insulin Z79.4 Active [id number] ALLERGIES No Information ENCOUNTERS Encounter Location Date Diagnosis [facility], [place] [address] [facility] [id number] [address] [place] [address] Jun, Type 2 diabetes mellitus wit h hyperglycemia E11.65 ; Neuropathy G62.9 ; Recurrent major depressive disorder, in partial remission F33.41 ; Chronic pain G89.29 and Hypertriglyceridemia E78.1 [facility], [place] [address] [facility] [id number] [address] [place] [address] Jun, Hypothyroid E03.9 [facility], [place] [address] [id number] [address] [place] [address] Jun, Major depressive disorder, r ecurrent episode, moderate F33.1 and Anxiety disorder, unspecified type F41.9 [facility], [place] [address] [id number] [address] [place] [address] Jun, [place] [address] [facility] [id number] [address] [place] [address] Jun, Type 2 diabetes mellitus wit h hyperglycemia E11.65 ; 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 ; Recurrent major depressive disorder, in partial remission F33.41 ; Hypothyroid E03.9 ; Candidal dermatitis B37.2 and Weakness generalized R53.1 [place] [address] [facility] [id number] [address] [place] [address] May, [place] [address] [id number] [address] [place] [address] May, [place] [address] [id number] [address] [place] [address] May, [place] [address] [facility] [id number] [address] [place] [address] May, Generalized abdominal pain R 10.84 and Candidal dermatitis B37.2 [place] [address] [facility] [id number] [address] [place] [address] May, [place] [address] [id number] [address] [place] [address] May, [place] [address] [facility] [id number] [address] [place] [address] May, Nodular radiologic density R 93.8 ; Weight loss, unintentional R63.4 and Pulmonary emphysema, unspecified emphysema type J43.9 [place] [address] [facility] [id number] [address] [place] [address] May, Chronic pain G89.29 [facility], [place] [address] [id number] [address] [place] [address] 09 May, 2018 Syncope and collapse R55 ; C hronic fatigue R53.[address] lung screening R91.8 [facility], [place] [address] [id number] [address] [place] [address] May, [facility], [place] [address] [id number] [address] [place] [address] Apr, Chronic fatigue R53.82 ; Abn ormal chest CT R93.8 ; Elevated erythrocyte sedimentation rate R70.0 ; Hypothyroid E03.9 and Recurrent major depressive disorder, in partial remission F33.41 [facility], [place] [address] [id number] [address] [place] [address] Apr, Hypothyroid E03.9 [facility], [place] [address] [id number] [address] [place] [address] Apr, Depression F32.9 [facility], [place] [address] [id number] [address] [place] [address] Apr, [facility], [place] [address] [id number] [address] [place] [address] March, [facility], [place] [address] [facility] [id number] [address] [place] [address] March, Hypothyroid E03.9 [facility], [place] [address] [facility] [id number] [address] [place] [address] March, Diabetes mellitus E11.9 and Hypothyroid E03.9 [facility], [place] [address] [id number] [address] [place] [address] March, Diabetes mellitus E11.9 [facility], [place] [address] [facility] [id number] [address] [place] [address] March, Hypothyroid E03.9 and Elevat ed liver enzymes R74.8 [facility], [place] [address] [facility] [id number] [address] [place] [address] March, Type 2 diabetes mellitus wit h [...] major depressive disorder, in partial remission F33.41 [place] [address] [place] [address] Feb, Chronic pain G89.29 [place] [id number] [place] [address] Feb, Type 2 diabetes mellitus wit h hyperglycemia E11.65 and Skin lesion of scalp L98.9 [place] [id number] [address] [place] [address] Feb, [place] [address] [address] Jan, Type 2 diabetes mellitus wit h hyperglycemia E11.65 ; 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 ; Essential (primary) hypertension I10 ; Pulmonary emphysema, unspecified emphysema type J43.9 ; Chronic pain G89.29 ; Controlled substance agreement signed Z79.899 ; Hypothyroid E03.9 ; Neuropathy G62.9 ; Gastroesophageal reflux disease with esophagitis K21.0 ; Overactive bladder N32.81 ; Depression F32.9 and Irritable bowel syndrome with diarrhea K58.0 [place] [address] [place] [id number] [address] [place] [address] Jan, [place] [address] [place] [id number] [address] [place] [address] Jan, Controlled substance agreeme nt signed Z79.899 [place] [address] [place] [id number] [address] [place] [address] Dec, Type 2 diabetes mellitus wit h hyperglycemia E11.65 ; Controlled substance agreement signed Z79.899 ; 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 ; Essential (primary) hypertension I10 ; Hypothyroid E03.9 ; Neuropathy G62.9 ; Depression F32.9 ; Mixed hyperlipidemia E78.2 ; Irritable bowel syndrome with diarrhea K58.0 ; Gastroesophageal reflux disease with esophagitis K21.0 ; Thrombocytosis D47.3 ; Current non-adherence to medical treatment Z91.19 and Overweight (BMI 25.0-29.9) E66.3 [place] [address] [facility] [id number] [address] [place] [address] 02 Dec, 2017 Controlled substance agreeme nt signed Z79.899 [place] [address] [place] [id number] [address] [place] [address] Nov, Type 2 diabetes mellitus wit h hyperglycemia E11.65 and Current non- adherence to medical treatment Z91.19 [place] [address] [facility] [id number] [address] [place] [address] Nov, [place] [address] [facility] [id number] [address] [place] [address] Nov, Chronic pain G89.29 [place] [address] [place] [id number] [address] [place] [address] Nov, [place] [address] [place] [id number] [address] [place] [address] Nov, Hypothyroid E03.9 [place] [address] [facility] [id number] [address] [place] [address] Nov, Hypothyroid E03.9 [place] [address] [facility] [id number] [address] [place] [address] Nov, Pulmonary emphysema, unspeci fied emphysema type J43.9 and Irritable bowel syndrome with diarrhea K58.0 [place] [address] [facility] [id number] [address] [place] [address] Oct, [place] [address] [place] [id number] [address] [place] [address] Oct, [place] [address] [place] [address] Oct, [place] [address] [facility] [id number] [address] [place] [address] Oct, [place] [address] [place] [id number] [address] [place] [address] Oct, Chronic pain G89.29 [place] [address] [address] Oct, Diabetes mellitus E11.9 ; De pression F32.9 ; Mixed hyperlipidemia E78.2 ; Hypotension, unspecified hypotension type I95.9 ; Pulmonary emphysema, unspecified emphysema type J43.9 and Weight loss, unintentional R63.4 [place] [address] [address] Oct, Chronic pain G89.29 [place] [address] [address] Sep, Chronic pain G89.29 [place] [address] [address] Sep, Hypothyroid E03.9 and Diabet es mellitus E11.9 [place] [address] [address] Aug, Type 2 diabetes mellitus wit h hyperglycemia E11.65 ; 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 ; Essential (primary) hypertension I10 ; Hypothyroid E03.9 ; Neuropathy G62.9 ; Chronic pain G89.29 ; Mixed hy perlipidemia E78.2 and Encounter for immunization Z23 [place] [address] [place] [id number] [address] [place] [address] Aug, Chronic pain G89.29 [place] [address] [place] [id number] [address] [place] [address] Aug, Overactive bladder N32.81 ; Diabetes mellitus E11.9 and Chronic pain G89.29 [place] [address] [place] [address] [place] [address] Jul, [facility], [place] [address] [facility] [id number] [address] [place] [address] Jun, [facility], [place] [address] [facility] [id number] [address] [place] [address] Jun, [facility], [place] [address] [facility] [id number] [address] [place] [address] Jun, Hypothyroid E03.9 [facility], [place] [address] [facility] [id number] [address] [place] [address] Jun, Diabetes mellitus E11.9 ; Hy pothyroid E03.9 ; Neuropathy G62.9 ; Chronic pain G89.29 and Neck mass R22.1 [facility], [place] [address] [facility] [id number] [address] [place] [address] Apr, [facility], [place] [address] [facility] [id number] [address] [place] [address] Apr, Acute cystitis without hemat uria N30.00 [facility], [place] [address] [facility] [id number] [address] [place] [address] March, [facility], [place] [address] [facility] [id number] [address] [place] [address] March, [facility], [place] [address] [facility] [id number] [address] [place] [address] March, Near syncope R55 [facility], [place] [address] [facility] [id number] [address] [place] [address] Feb, [facility], [place] [address] [facility] [id number] [address] [place] [address] Feb, Chronic pain G89.29 [facility], [place] [address] [facility] [id number] [address] [place] [address] Feb, [facility], [place] [address] [facility] [id number] [address] [place] [address] Feb, [facility], [place] [address] [place] [id number] [address] [place] [address] Jan, Chronic pain G89.29 [facility], [place] [address] [address] Jan, [facility], [place] [address] [address] 16 Jan, 2017 [facility], [place] [address] [address] 14 Jan, 2017 Diabetes mellitus E11.9 ; Hy pothyroid E03.9 ; GERD (gastroesophageal reflux disease) K21.9 ; Insomnia G47.00 ; Functional diarrhea K59.1 ; Neuropathy G62.9 ; Depression F32.9 ; Chronic pain G89.29 ; Irritable bowel syndrome with diarrhea K58.0 ; Overactive bladder N32.81 ; Mixed hyperlipidemia E78.2 and Bronchitis J40 [facility], [place] [address] [address] Dec, [facility], [place] [address] [place] [id number] [address] [place] [address] Dec, [facility], [place] [address] [address] Dec, [facility], [place] [address] [place] [id number] [address] [place] [address] Dec, [facility], [place] [address] [place] [id number] [address] [place] [address] Dec, Chronic pain G89.29 [facility], [place] [address] [place] [id number] [address] [place] [address] Dec, [facility], [place] [address] [place] [id number] [address] [place] [address] Dec, [facility], [place] [address] [place] [id number] [address] [place] [address] Dec, Type 2 diabetes mellitus wit h foot ulcer E11.621 [place] [address] [place] [id number] [address] [place] [address] 17 Dec, 2016 Type 2 diabetes mellitus wit h foot ulcer E11.621 [place] [address] [place] [id number] [place] [address] 14 Dec, 2016 HTN (hypertension) I10 ; Dep ression F32.9 ; Type 2 diabetes mellitus with foot ulcer E11.621 ; Functional diarrhea K59.1 ; Irritable bowel syndrome with diarrhea K58.0 ; Chronic pain G89.29 ; Insomnia G47.00 ; Overactive bladder N32.81 ; Mixed hyperlipidemia E78.2 ; Gastroesophageal reflux disease with esophagitis K21.0 and Acquired hypothyroidism E03.9 [place] [address] [address] Nov, [place] [address] [address] Oct, [place] [address] [address] Oct, [place] [address] [address] Oct, [place] [address] [address] Sep, Functional 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 ; HTN (hypertension) I10 ; Diabetes mellitus E11.9 ; Depression F32.9 ; Overactive bladder N32.81 ; Mixed hyperlipidemia E78.2 ; Gastroesophageal reflux disease without esophagitis K21.9 ; Chronic pain G89.29 ; Insomnia G47.00 and Acquired hypothyroidism E03.9 [place] [address] [address] Sep, [place] [address] [address] Aug, Encounter for immunization Z 23 [place] [address] [address] Aug, [place] [address] [address] Jul, [place] [address] [address] Jun, Type 2 diabetes mellitus wit hout complications E11.9 ; HTN (hypertension) I10 ; Hypothyroid E03.9 ; Neuropathy G62.9 ; Depression F32.9 ; Chronic pain G89.29 ; GERD (gastroesophageal reflux disease) K21.9 ; Insomnia G47.00 ; Overactive bladder N32.81 ; Mixed hyperlipidemia E78.2 ; Diarrhea of infectious origin A09 and Environmental allergies Z91.09 [place] [address] [address] Apr, [place] [address] [address] March, Hypothyroidism, unspecified E03.9 and Mixed hyperlipidemia E78.2 [place] [address] [address] March, Diabetes mellitus E11.9 ; HT N (hypertension) I10 ; Hypothyroid E03.9 ; Depression F32.9 ; Overactive bladder N32.81 ; Other chronic pain G89.29 ; Lumbago with sciatica, unspecified side M54.40 ; Environmental allergies Z91.09 and Gastroesophageal reflux disease, esophagitis presence not specified K21.9 [place] [address] [address] March, [place] [address] [address] Jan, HTN (hypertension) I10 ; Hyp othyroid E03.9 ; Neuropathy G62.9 ; Diabetes mellitus E11.9 ; Chronic pain G89.29 ; GERD (gastroesophageal reflux disease) K21.9 ; Overactive bladder N32.81 and Depression F32.9 [place] [address] [address] Dec, Ear pain, left H92.02 ; HTN (hypertension) I10 ; Hypothyroid E03.9 ; Neuropathy G62.9 ; Diabetes mellitus E11.9 ; Depression F32.9 ; GERD (gastroesophageal reflux disease) K21.9 ; Insomnia G47.00 and Overactive bladder N32.81 [place] [address] [place] [address] Nov, Overactive bladder N32.81 an d Chronic pain G89.29 [place] [address] [place] [id number] [place] [address] Nov, Kidney failure N19 [place] [address] [place] [id number] [place] [address] Nov, [place] [address] [place] [id number] [address] [place] [address] Nov, [place] [address] [address] Nov, Diabetes mellitus E11.9 ; De pression F32.9 ; Chronic pain G89.29 ; GERD (gastroesophageal reflux disease) K21.9 ; Insomnia G47.00 ; HTN (hypertension) I10 ; Hypothyroid E03.9 ; COPD (chronic obstructive pulmonary disease) J44.9 ; Bladder incontinence R32 and Incontinence R32 [place] [address] [place] [address] Sep, Type 2 diabetes mellitus wit h foot ulcer E11.621 and Chromosomal abnormality, 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 [place] [address] [place] [id number] [address] [place] [address] Sep, [place] [address] [place] [id number] [place] [address] Aug, [place] [address] [place] [id number] [address] [place] [address] Aug, [place] [address] [place] [id number] [place] [address] Aug, HTN (hypertension) I10 ; Enc ounter for immunization Z23 ; Hypothyroid E03.9 ; Neuropathy G62.9 ; Diabetes mellitus E11.9 ; Depression F32.9 ; Chronic pain G89.29 ; GERD (gastroesophageal reflux disease) K21.9 ; Insomnia G47.00 and COPD (chronic obstructive pulmonary disease) J44.[address] [address] Jun, [address] [address] Jun, [address] [address] May, Essential hypertension, ivis gn 401.1 ; Unspecified hypothyroidism 244.9 ; Insomnia, unspecified 780.52 ; Shortness of breath 786.05 ; Depression 311 ; COPD (chronic obstructive pulmonary disease) 496 ; GERD (gastroesophageal reflux disease) 530.81 and Diabetes 1.5, 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 [address] May, [address] [address] May, [address] [address] May, Shortness of breath 786.05 ; Essential hypertension, benign 401.1 ; Diabetes mellitus 250.00 ; Hyperlipidemia 272.4 ; Hypothyroid 244.9 ; Insomnia 780.52 and Cough 786.[address] [address] Apr, [address] [address] March, Shortness of breath 786.05 ; Nausea with vomiting 787.01 ; Essential hypertension, benign 401.1 ; Diabetes mellitus 250.00 ; Hyperlipidemia 272.4 and Hypothyroid 244.[address] [address] 14 Feb, 2015 [facility] [address] [id number] [address] [place] [address], [place] [address] Feb, [facility] [address] [id number] [address] [place] [address], [place] [address] Jan, [facility] [address] [id number] [address] [place] [address], [place] [address] Jan, [facility] [place] [facility] [address] [id number] [address] [place] [address], [place] [address] Jan, [facility] [address] [id number] [address] [place] [address], [place] [address] Jan, [facility] [address] [id number] [address] [place] [address], [place] [address] Jan, [facility] [address] [id number] [address] [place] [address], [place] [address] Jan, [facility] [address] [id number] [address] [place] [address], [place] [address] Jan, [facility] [address] [id number] [address] [place] [address], [place] [address] Jan, [facility] [address] [id number] [address] [place] [address], [place] [address] Jan, [facility] [address] [id number] [address] [place] [address], [place] [address] Jan, [facility] [place] [facility] [address] [id number] [address] [place] [address], [place] [address] Dec, [facility] [place] [facility] [address] [id number] [address] [place] [address], [place] [address] Dec, [facility] [place] [facility] [address] [id number] [address] [place] [address], [place] [address] Dec, [facility] [place] [facility] [address] [id number] [address] [place] [address], [place] [address] Dec, [facility] [place] [facility] [address] [id number] [address] [place] [address], [place] [address] Dec, 2014 [facility] [address] [id number] [address] [place] [address], [place] [address] Dec, 2014 [facility] [address] [id number] [address] [place] [address], [place] [address] Dec, 2014 [facility] [place] [facility] [address] [id number] [address] [place] [address], [place] [address] Dec, 2014 [facility] [address] [id number] [address] [place] [address], [place] [address] Dec, 2014 [facility] [address] [id number] [address] [place] [address], [place] [address] Dec, 2014 [facility] [address] [id number] [address] [place] [address], [place] [address] Oct, [facility] [address] [id number] [address] [place] [address], [place] [address] Oct, [facility] [address] [id number] [address] [place] [address], [place] [address] Oct, [facility] [address] [id number] [address] [place] [address], [place] [address] Oct, [facility] [address] [id number] [address] [place] [id number] Oct, [facility] [address] [id number] [address] [place] [address] Oct, [facility] [address] [id number] [address] [place] [address], [place] [address] Oct, [facility] [address] [id number] [address] [place] [address], [place] [address] Oct, [facility] [address] [id number] [address] [place] [id number] Oct, [facility] [address] [id number] [address] [place] [address], [place] [address] Oct, [facility] [address] [id number] [address] [place] [address], [place] [address] Oct, [facility] [address] [id number] [address] [place] [address], [place] [address] Oct, [facility] [address] [id number] [address] [place] [address], [place] [address] Oct, [facility] [address] [id number] [address] [place] [address], [place] [address] Oct, [facility] [address] [id number] [address] [place] [address], [place] [address] Sep, [facility] [address] [id number] [address] [place] [address], [place] [address] Sep, [facility] [address] [id number] [address] [place] [address], [place] [address] Sep, [facility] [address] [id number] [address] [place] [address], [place] [address] Sep, [facility] [address] [id number] [address] [place] [address], [place] [address] Sep, [facility] [address] [id number] [address] [place] [address], [place] [address] Sep, [facility] [facility] [address] [id number] [address] [place] [address], [place] [address] Sep, [facility] [address] [id number] [address] [place] [address], [place] [address] Sep, [facility] [address] [id number] [address] [place] [address], [place] [address] Sep, [facility] [address] [id number] [address] [place] [address], [place] [address] Aug, [facility] [address] [id number] [address] [place] [address], [place] [address] Aug, [facility] [address] [id number] [address] [place] [address], [place] [address] 17 Aug, 2013 [facility] [address] [id number] [address] [place] [address], [place] [address] 17 Aug, 2014 [facility] [address] [id number] [address] [place] [address], [place] [address] 16 Aug, 2013 [facility] [address] [id number] [address] [place] [address], [place] [address] Aug, [facility] [address] [id number] [address] [place] [address], [place] [address] Aug, [facility] [address] [id number] [address] [place] [address], [place] [address] Aug, [facility] [address] [id number] [address] [place] [address], [place] [address] Aug, [facility] [address] [id number] [address] [place] [address], [place] [address] 29 Jul, 2013 [facility] [address] [id number] [address] [place] [address], [place] [address] 29 Sep, 2013 [facility] [address] [id number] [address] [place] [address], [place] [address] 25 Sep, 2013 [facility] [address] [id number] [address] [place] [address], [place] [address] 25 Sep, 2013 [facility] [address] [id number] [address] [place] [address], [place] [address] 25 Sep, 2013 [facility] [address] [id number] [address] [place] [address], [place] [address] 25 Sep, 2013 [facility] [address] [id number] [address] [place] [address], [place] [address] 25 Jul, 2013 [facility] [address] [id number] [address] [place] [address], [place] [address] 25 Jul, 2013 [facility] [address] [id number] [address] [place] [address], [place] [address] Jul, [facility] [address] [id number] [facility] [place] [address] Jul, [facility] [address] [id number] [facility] [place] [address] Jun, [facility] [address] [id number] [facility] [place] [address] Jun, [facility] [address] [id number] [address] [place] [address], [place] [address] Jun, [facility] [address] [id number] [facility] [place] [address] Jun, [facility] [address] [id number] [address] [place] [address], [place] [address] Jun, [facility] [address] [id number] [address] [place] [address], [place] [address] Jun, [facility] [address] [id number] [address] [place] [address], [place] [address] Jun, [facility] [address] [id number] [address] [place] [address], [place] [address] Jun, [facility] [address] [id number] [address] [place] [address], [place] [address] Jun, [facility] [address] [id number] [address] [place] [address], [place] [address] Jun, [facility] [address] [id number] [address] [place] [address], [place] [address] Jun, [facility] [address] [id number] [address] [place] [address], [place] [address] Jun, [facility] [address] [id number] [address] [place] [address], [place] [address] May, [facility] [address] [id number] [address] [place] [address], [place] [address] May, [facility] [address] [id number] [facility] [place] [address] May, [facility] [address] [id number] [address] [place] [address], [place] [address] May, [facility] [address] [id number] [address] [place] [address], [place] [address] May, [facility] [address] [id number] [address] [place] [address], [place] [address] May, [facility] [address] [id number] [address] [place] [address], [place] [address] March, [facility] [address] [id number] [address] [place] [address], [place] [address] March, [facility] [address] [id number] [address] [place] [address], [place] [address] March, [facility] [address] [id number] [address] [place] [address], [place] [address] March, [facility] [address] [id number] [address] [place] [address], [place] [address] March, [facility] [address] [id number] [address] [place] [address], [place] [address] March, [facility] [address] [id number] [address] [place] [address], [place] [address] Feb, [facility] [address] [id number] [address] [place] [address], [place] [address] Feb, [facility] [address] [id number] [address] [place] [address], [place] [address] Feb, [facility] [address] [id number] [address] [place] [address], [place] [address] Feb, [facility] [address] [id number] [address] [place] [address], [place] [address] Jan, [facility] [address] [id number] [address] [place] [address], [place] [address] Jan, [facility] [address] [id number] [facility] [place] [address] Jan, [facility] [address] [id number] [facility] [place] [address] Jan, [facility] [address] [id number] [facility] [place] [address] Jan, [facility] [address] [id number] [address] [place] [address], [place] [address] Jan, [facility] [address] [id number] [address] [place] [address], [place] [address] Jan, [facility] [address] [id number] [address] [place] [address], [place] [address] Jan, [facility] [address] [id number] [address] [place] [address], [place] [address] Jan, [facility] [address] [id number] [address] [place] [address], [place] [address] Jan, [facility] [address] [id number] [address] [place] [address], [place] [address] Jan, [facility] [address] [id number] [address] [place] [address], [place] [address] Jan, [facility] [address] [id number] [address] [place] [address], [place] [address] Dec, [facility] [address] [id number] [address] [place] [address], [place] [address] Dec, [facility] [address] [id number] [address] [place] [address], [place] [address] Dec, [facility] [address] [id number] [address] [place] [address], [place] [address] Dec, [facility] [address] [id number] [address] [place] [address], [place] [address] Dec, [facility] [address] [id number] [address] [place] [address] Dec, [facility] [address] [id number] [address] [place] [address], [place] [address] Nov, [facility] [address] [id number] [address] [place] [address], [place] [address] Nov, [facility] [address] [id number] [address] [place] [address], [place] [address] Oct, [facility] [address] [id number] [address] [place] [address], [place] [address] Oct, [facility] [address] [id number] [address] [place] [address], [place] [address] Oct, [facility] [address] [id number] [address] [place] [address], [place] [address] Oct, [facility] [address] [id number] [address] [place] [address], [place] [address] Oct, [facility] [address] [id number] [address] [place] [address], [place] [address] Oct, [facility] [address] [id number] [address] [place] [address], [place] [address] Sep, [facility] [address] [id number] [address] [place] [address], [place] [address] Sep, [facility] [address] [id number] [address] [place] [address], [place] [address] Sep, [facility] [address] [id number] [address] [place] [address], [place] [address] Sep, [facility] [address] [id number] [address] [place] [address], [place] [address] Aug, [facility] [address] [id number] [address] [place] [address], [place] [address] Aug, [facility] [address] [id number] [address] [place] [address] Aug, [facility] [address] [id number] [address] [place] [address], [place] [address] 17 Jul, 2013 [facility] [address] [id number] [address] [place] [address], [place] [address] 14 Jul, 2013 [facility] [address] [id number] [address] [place] [address], [place] [address] 04 Jul, 2013 [facility] [address] [id number] [address] [place] [address], [place] [address] Jun, [facility] [address] [id number] [address] [place] [address], [place] [address] Jun, [facility] [address] [id number] [address] [place] [address], [place] [address] Jun, [facility] [address] [id number] [address] [place] [address], [place] [address] Apr, [facility] [address] [id number] [address] [place] [address], [place] [address] Apr, [facility] [address] [id number] [address] [place] [address], [place] [address] March, [facility] [address] [id number] [address] [place] [address], [place] [address] March, [facility] [address] [id number] [address] [place] [address], [place] [address] March, [facility] [address] [id number] [address] [place] [address], [place] [address] March, [facility] [address] [id number] [address] [place] [address], [place] [address] Feb, [facility] [address] [id number] [address] [place] [address], [place] [address] Jan, [facility] [address] [id number] [address] [place] [address], [place] [address] Dec, [facility] [address] [id number] [address] [place] [address], [place] [address] 08 Dec, 2012 [facility] [address] [id number] [address] [place] [address], [place] [address] Dec, [facility] [address] [id number] [address] [place] [address], [place] [address] Nov, [facility] [address] [id number] [address] [place] [address], [place] [address] Oct, [facility] [address] [id number] [address] [place] [address], [place] [address] Oct, [facility] [address] [id number] [address] [place] [address], [place] [address] Sep, [facility] [address] [id number] [address] [place] [address], [place] [address] Sep, [facility] [address] [id number] [address] [place] [address], [place] [address] Sep, [facility] [address] [id number] [address] [place] [address], [place] [address] Sep, [facility] [address] [id number] [address] [place] [address], [place] [address] Sep, [facility] [address] [id number] [address] [place] [address], [place] [address] Sep, [facility] [address] [id number] [address] [place] [address], [place] [address] Sep, [facility] [address] [id number] [address] [place] [address], [place] [address] Aug, [facility] [address] [id number] [address] [place] [address], [place] [address] Aug, [facility] [address] [id number] [address] [place] [address], [place] [address] Aug, [facility] [address] [id number] [address] [place] [address], [place] [address] Aug, [facility] [address] [id number] [address] [place] [address], [place] [address] 08 Aug, 2012 [facility] [address] [id number] [address] [place] [address], [place] [address] 08 Aug, 2012 [facility] [address] [id number] [address] [place] [address], [place] [address] Aug, [facility] [address] [id number] [address] [place] [address], [place] [address] Aug, [facility] [address] [id number] [address] [place] [address], [place] [address] Jul, [facility] [address] [id number] [address] [place] [address], [place] [address] Jul, [facility] [address] [id number] [address] [place] [address], [place] [address] Jun, [facility] [address] [id number] [address] [place] [address], [place] [address] May, [facility] [address] [id number] [address] [place] [address], [place] [address] Apr, [facility] [address] [id number] [address] [place] [address], [place] [address] Apr, [facility] [address] [id number] [address] [place] [address], [place] [address] Apr, [facility] [address] [id number] [address] [place] [address], [place] [address] March, [facility] [address] [id number] [address] [place] [address], [place] [address] March, [facility] [address] [id number] [address] [place] [address], [place] [address] March, [facility] [address] [id number] [address] [place] [address], [place] [address] March, [facility] [address] [id number] [address] [place] [address], [place] [address] March, [facility] [address] [id number] [address] [place] [address], [place] [address] March, [facility] [address] [id number] [address] [place] [address], [place] [address] March, [facility] [address] [id number] [address] [place] [address], [place] [address] Jan, [facility] [address] [id number] [address] [place] [address], [place] [address] Jan, [facility] [address] [id number] [address] [place] [address], [place] [address] Jan, [facility] [address] [id number] [address] [place] [address], [place] [address] Jan, [facility] [address] [id number] [address] [place] [address], [place] [address] Jan, [facility] [address] [id number] [address] [place] [address], [place] [address] Dec, [facility] [address] [id number] [address] [place] [address], [place] [address] Dec, [facility] [address] [id number] [address] [place] [address], [place] [address] Nov, [facility] [address] [id number] [address] [place] [address], [place] [address] Nov, [facility] [address] [id number] [address] [place] [address], [place] [address] Nov, [facility] [address] [id number] [address] [place] [address], [place] [address] Nov, [facility] [address] [id number] [address] [place] [address], [place] [address] Oct, [facility] [address] [id number] [address] [place] [address], [place] [address] Oct, [facility] [address] [id number] [address] [place] [address], [place] [address] 14 Sep, 2011 [facility] [address] [id number] [address] [place] [address], [place] [address] 10 Sep, 2011 [facility] [address] [id number] [address] [place] [address], [place] [address] 10 Sep, 2011 [facility] [address] [id number] [address] [place] [address], [place] [address] 11 May, 2011 [facility] [address] [id number] [address] [place] [address], [place] [address] 20 Nov, 2010 [facility] [address] [id number] [address] [place] [address], [place] [address] 29 Oct, 2010 [facility] [address] [id number] [address] [place] [address], [place] [address] 14 Oct, 2010 [facility] [address] [id number] [address] [place] [address], [place] [address] 08 Oct, 2010 [facility] [address] [id number] [address] [place] [address], [place] [address] 15 Sep, 2010 [facility] [address] [id number] [address] [place] [address], [place] [address] 02 Sep, 2010 [facility] [address] [id number] [address] [place] [address], [place] [address] Aug, [facility] [address] [id number] [address] [place] [address], [place] [address] March, [facility] [address] [id number] [address] [place] [address], [place] [address] 17 Oct, 2009 [facility] [address] [id number] [address] [place] [address], [place] [address] Oct, [facility] [address] [id number] [address] [place] [address], [place] [address] Oct, [facility] [address] [id number] [address] [place] [address], [place] [address] Oct, [facility] [place] [address] [facility] [id number] [address] [place] [id number] Sep, [facility] [place] [address] [facility] [id number] [address] [place] [address] Sep, [facility] [place] [address] [facility] [id number] [address] [place] [address] Sep, [facility] [place] [address] [facility] [id number] [address] [place] [address] Aug, [facility] [place] [address] [facility] [id number] [address] [place] [id number] Aug, [facility] [place] [address] [facility] [id number] [address] [place] [address] Aug, [facility] [place] [address] [facility] [id number] [address] [place] [id number] Jan, IMMUNIZATIONS No Known Immunizations SOCIAL HISTORY Never Assessed REASON FOR VISIT Requests return call PLAN OF CARE VITAL SIGNS MEDICATIONS No [...]
--- OUTSIDE RECORDS SUMMARY | 2020-06-13 16:25 | XMS REPORT ---
Author Author Jah PARKER Organization 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 Name Role Phone PARKERPATRICIA Mckeon Unavailable PROBLEMS Type Condition ICD9-CM Code YQC19-PJ Code Onset Dates Condition S tatus SNOMED Code Problem Type 2 diabetes mellitus with hyperglycemia E11.65 Active 21025735 Problem Pulmonary emphysema, unspecified emphysema type J4 3.9 Active 53521039 Problem Essential (primary) hypertension I10 Active 47371433 Problem Hypertriglyceridemia E78.1 Active 818874461 Problem Major depressive disorder, recurrent episode, moderate F33.1 Active 395662507 Problem Recurrent major depressive disorder, in partial remission F33.41 Active 97386110 Problem Current non-adherence to medical treatment Z91.19 Active 9355426 Problem Anxiety disorder, unspecified type F41.9 Active 026892876 Problem Chronic fatigue R53.82 Active 8422 9001 Problem Chronic pain G89.29 Active 6797979 1 Problem Neuropathy G62.9 Active 732963622 Problem Thrombocytosis D47.3 Active 51379 09 Problem Mixed hyperlipidemia E78.2 Active 625574669 Problem Gastroesophageal reflux disease with esophagitis K 21.0 Active 624592433 Problem Hypothyroid E03.9 Active 44982787 Problem Irritable bowel syndrome with diarrhea K58.0 Active 594893292 Problem Overactive bladder N32.81 Active 2 30605494 Problem nursing home current use of insulin Z79.4 Active 871274030 ALLERGIES Substance Reaction Event Type Date Status Trilipix nausea Drug Allergy May, Active Niacin rash Drug Allergy May, Active Metformin HCl diarrhea Drug Allergy May, Active Januvia diarrhea Drug Allergy May, Active Gemfibrozil diarrhea Drug Allergy May, Active Actos diarrhea Drug Allergy May, Active ENCOUNTERS Encounter Location Date Diagnosis [facility] [address] [facility] [id number] [place] [address] Jun, Type 2 diabetes mellitus wit h hyperglycemia E11.65 ; Neuropathy G62.9 ; Recurrent major depressive disorder, in partial remission F33.41 ; Chronic pain G89.[address] [facility] [address] [facility] [id number] [address] [place] [id number] Jun, Hypothyroid E03.9 [facility] [address] [facility] [id number] [address] [place] [id number] Jun, Major depressive disorder, r ecurrent episode, moderate F33.1 and Anxiety disorder, unspecified type F41.9 [facility] [address] [facility] [id number] [address] [place] [id number] Jun, [facility] [address] [facility] [id number] [address] [place] [id number] Jun, Type 2 diabetes mellitus wit h hyperglycemia E11.65 ; nursing home current use of insulin Z79.4 ; Recurrent major depressive disorder, in partial remission F33.41 ; Hypothyroid E03.9 ; Candidal dermatitis B37.2 [address] Weak[address] generalized R[address]1 [facility] [address] [facility] [id number] [address] [place] [phone] May, [facility] [address] [facility] [id number] [address] [place] [id number] May, [facility] [address] [facility] [id number] [address] [place] [phone] May, [facility] [address] [facility] [id number] [address] [place] [phone] May, Generalized abdominal pain R 10.84 and Candidal dermatitis B37.2 [facility] [address] [facility] [id number] [address] [place] [phone] May, [facility] [address] [facility] [id number] [address] [place] [phone] May, [facility] [address] [facility] [id number] [address] [place] [id number] May, Nodular radiologic density R 93.8 ; Weight loss, unintentional R63.4 and Pulmonary emphysema, unspecified emphysema type J43.9 [facility] [address] [id number] [address] [place] [id number] 10 May, [address] [facility] [address] [id number] [address] [place] [id number] 09 May, 2018 Syncope and collapse R55 ; C hronic fatigue R53.[address] lung screening R91.8 [facility] [address] [id number] [address] [place] [phone] May, [facility] [address] [facility] [id number] [address] [place] [phone] Apr, Chronic fatigue R53.82 ; Abn ormal chest CT R93.8 ; Elevated erythrocyte sedimentation rate R70.0 ; Hypothyroid E03.9 and Recurrent major depressive disorder, in partial remission F33.[address] [place] [id number] [id number] [address] [place] [phone] Apr, Hypothyroid E03.9 [facility] [address] [id number] [address] [place] [phone] Apr, Depression F32.9 [facility] [address] [id number] [address] [place] [phone] Apr, [facility] [address] [id number] [address] [place] [phone] March, [facility] [address] [id number] [address] [place] [phone] March, Hypothyroid E03.9 [facility] [address] [id number] [address] [place] [phone] March, Diabetes mellitus E11.[address] [facility] [address] [facility] [id number] [address] [place] [phone] March, Diabetes mellitus E11.9 [facility] [address] [place] [id number] [address] [place] [address] March, Hypothyroid E03.9 and Elevat ed liver enzymes R74.8 [place] [id number] [address] [place] [address] March, Type 2 diabetes mellitus wit h [...] disorder, in partial remission F33.41 [place] [id number] [address] [place] [address] Feb, Chronic pain G89.[address] [address] Feb, Type 2 diabetes mellitus wit h hyperglycemia E11.65 and Skin lesion of scalp L98.9 [place] [id number] [address] [place] [address] Feb, [place] [id number] [address] [place] [phone] Jan, Type 2 diabetes mellitus wit h [...] and Irritable bowel syndrome with diarrhea K58.0 [place] [address] [place] [id number] [address] [place] [phone] Jan, [place] [id number] [address] [place] [id number] Jan, Controlled substance agreeme nt signed Z79.899 [facility] [address] [id number] [address] [place] [id number] 08 Dec, 2017 Type 2 diabetes mellitus [...] treatment Z91.19 and Overweight (BMI 25.0-29.9) E66.3 [place] [address] [facility] [id number] [address] [place] [id number] 02 Dec, 2017 Controlled substance agreeme nt signed Z79.899 [place] [address] [facility] [id number] [address] [place] [id number] Nov, Type 2 diabetes mellitus wit h hyperglycemia E11.65 and Current non- adherence to medical treatment Z91.19 [place] [address] [id number] [address] [place] [id number] Nov, [place] [address] [facility] [id number] [address] [place] [id number] Nov, Chronic pain G89.29 [place] [address] [facility] [id number] [address] [place] [phone] Nov, [place] [address] [facility] [id number] [address] [place] [phone] Nov, Hypothyroid E03.9 [place] [address] [facility] [id number] [address] [place] [phone] Nov, Hypothyroid E03.9 [place] [address] [facility] [id number] [address] [place] [phone] Nov, Pulmonary emphysema, unspeci fied emphysema type J43.9 and Irritable bowel syndrome with diarrhea K58.0 [place] [address] [facility] [id number] [address] [place] [phone] Oct, [place] [address] [facility] [id number] [address] [place] [phone] Oct, [place] [address] [facility] [id number] [address] [place] [phone] Oct, [place] [address] [facility] [id number] [address] [place] [phone] Oct, [place] [address] [facility] [id number] [address] [place] [id number] Oct, Chronic pain G89.29 [place] [address] [place] [id number] [place] [phone] Oct, Diabetes mellitus E11.9 ; De pression F32.9 ; Mixed hyperlipidemia E78.2 ; Hypotension, unspecified hypotension type I95.9 ; Pulmonary emphysema, unspecified emphysema type J43.9 and Weight loss, unintentional R63.4 [place] [address] [place] [id number] [address] [place] [id number] Oct, Chronic pain G89.29 [place] [address] [place] [id number] [address] [place] [id number] Sep, Chronic pain G89.29 [place] [address] [place] [id number] [address] [place] [id number] Sep, Hypothyroid E03.9 and Diabet es mellitus E11.9 [place] [address] [place] [id number] [address] [place] [id number] Aug, Type 2 diabetes mellitus wit h hyperglycemia E11.65 ; 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 [address] [id number] [address] [place] [phone] Aug, Overactive bladder N32.81 ; Diabetes mellitus E11.9 and Chronic pain G89.29 [facility] [address] [id number] [address] [place] [phone] Jul, [facility] [address] [facility] [id number] [address] [place] [phone] Jun, [facility] [address] [id number] [address] [place] [id number] Jun, [facility] [address] [facility] [id number] [address] [place] [phone] Jun, Hypothyroid E03.9 [facility] [address] [facility] [id number] [address] [place] [phone] Jun, Diabetes mellitus E11.9 ; Hy pothyroid E03.9 ; Neuropathy G62.9 ; Chronic pain G89.29 and Neck mass R22.1 [facility] [address] [facility] [id number] [address] [place] [id number] Apr, [facility] [address] [facility] [id number] [address] [place] [id number] Apr, Acute cystitis without hemat uria N30.00 [facility] [address] [facility] [id number] [address] [place] [phone] March, [facility] [address] [facility] [id number] [address] [place] [phone] March, [facility] [address] [facility] [id number] [address] [place] [id number] March, Near syncope R55 [facility] [address] [facility] [id number] [address] [place] [phone] Feb, [facility] [address] [facility] [id number] [address] [place] [id number] Feb, Chronic pain G89.29 [facility] [address] [facility] [id number] [address] [place] [id number] Feb, [facility] [address] [place] [id number] [address] [place] [phone] Feb, [facility] [address] [facility] [id number] [address] [place] [id number] Jan, Chronic pain G89.29 [facility] [address] [place] [id number] [address] [place] [phone] Jan, [facility] [address] [place] [id number] [address] [place] [id number] Jan, [facility] [address] [place] [id number] [address] [place] [phone] Jan, Diabetes mellitus E11.9 ; Hy pothyroid E03.9 ; GERD (gastroesophageal reflux disease) K21.9 ; Insomnia G47.00 ; Functional diarrhea K59.1 ; Neuropathy G62.9 ; Depression F32.9 ; Chronic pain G89.29 ; Irritable bowel syndrome with diarrhea K58.0 ; Overactive bladder N32.81 ; Mixed hyperlipidemia E78.[address] [facility] [address] [place] [id number] [address] [place] [id number] Dec, [facility] [address] [place] [id number] [address] [place] [id number] Dec, [facility] [id number] [place] [phone] Dec, [facility] [address] [facility] [id number] [address] [place] [id number] Dec, [facility] [address] [place] [id number] [address] [place] [id number] Dec, Chronic pain G89.29 [facility] [address] [place] [id number] [address] [place] [phone] Dec, [facility] [address] [place] [id number] [address] [place] [address] Dec, [place] [address] [address] Dec, Type 2 diabetes mellitus wit h foot ulcer E11.621 [place] [address] [address] 17 Dec, 2016 Type 2 diabetes mellitus wit h foot ulcer E11.621 [place] [address] [address] 14 Dec, 2016 HTN (hypertension) I10 ; Dep ression F32.9 ; Type 2 diabetes mellitus with foot ulcer E11.621 ; Functional diarrhea K59.1 ; Irritable bowel syndrome with diarrhea K58.0 ; Chronic pain G89.29 ; Insomnia G47.00 ; Overactive bladder N32.81 ; Mixed hyperlipidemia E78.2 ; Gastroesophageal reflux disease with esophagitis K21.0 and Acquired hypothyroidism E03.9 [place] [address] [address] Nov, [place] [address] [address] Oct, [place] [address] [address] Oct, [place] [address] [address] Oct, [place] [address] [address] Sep, Functional diarrhea K59.1 ; HTN (hypertension) I10 ; Diabetes mellitus E11.9 ; Depression F32.9 ; Overactive bladder N32.81 ; Mixed hyperlipidemia E78.2 ; Gastroesophageal reflux disease without esophagitis K21.9 ; Chronic pain G89.29 ; Insomnia G47.00 and Acquired hypothyroidism E03.9 [place] [address] [address] Sep, [place] [address] [address] 11 Aug, 2016 Encounter for immunization Z 23 [place] [address] [address] 06 Aug, 2016 [place] [address] [address] Jul, [place] [address] [address] Jun, Type 2 diabetes mellitus wit hout complications E11.9 ; HTN (hypertension) I10 ; Hypothyroid E03.9 ; Neuropathy G62.9 ; Depression F32.9 ; Chronic pain G89.29 ; GERD (gastroesophageal reflux disease) K21.9 ; Insomnia G47.00 ; Overactive bladder N32.81 ; Mixed hyperlipidemia E78.2 ; Diarrhea of infectious origin A09 and Environmental allergies Z91.09 [place] [address] [address] Apr, [place] [address] [address] March, Hypothyroidism, unspecified E03.9 and Mixed hyperlipidemia E78.2 [place] [address] [address] March, Diabetes mellitus E11.9 ; HT N (hypertension) I10 ; Hypothyroid E03.9 ; Depression F32.9 ; Overactive bladder N32.81 ; Other chronic pain G89.29 ; Lumbago with sciatica, unspecified side M54.40 ; Environmental allergies Z91.09 and Gastroesophageal reflux disease, esophagitis presence not specified K21.9 [place] [address] [address] March, [place] [address] [address] Jan, HTN (hypertension) I10 ; Hyp othyroid E03.9 ; Neuropathy G62.9 ; Diabetes mellitus E11.9 ; Chronic pain G89.29 ; GERD (gastroesophageal reflux disease) K21.9 ; Overactive bladder N32.81 and Depression F32.9 [place] [address] [place] [address] 12 Dec, 2015 Ear pain, left H92.02 ; HTN (hypertension) I10 ; Hypothyroid E03.9 ; Neuropathy G62.9 ; Diabetes mellitus E11.9 ; Depression F32.9 ; GERD (gastroesophageal reflux disease) K21.9 ; Insomnia G47.00 and Overactive bladder N32.81 [place] [address] [place] [id number] [address] [place] [id number] Nov, Overactive bladder N32.81 an d Chronic pain G89.29 [place] [address] [place] [id number] [address] [place] [id number] Nov, Kidney failure N19 [place] [address] [address] Nov, [place] [address] [place] [id number] [address] [place] [address] Nov, [place] [address] [address] Nov, Diabetes mellitus E11.9 ; De pression F32.9 ; Chronic pain G89.29 ; GERD (gastroesophageal reflux disease) K21.9 ; Insomnia G47.00 ; HTN (hypertension) I10 ; Hypothyroid E03.9 ; COPD (chronic obstructive pulmonary disease) J44.9 ; Bladder incontinence R32 and Incontinence R32 [place] [address] [place] [id number] [address] [place] [address] Sep, Type 2 diabetes mellitus wit h foot ulcer E11.621 and Chromosomal abnormality, 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 [place] [address] [place] [id number] [address] [place] [address] Sep, [place] [address] [place] [id number] [place] [address] Aug, [address] [address] Aug, [address] [address] Aug, HTN (hypertension) I10 ; Enc ounter for immunization Z23 ; Hypothyroid E03.9 ; Neuropathy G62.9 ; Diabetes mellitus E11.9 ; Depression F32.9 ; Chronic pain G89.29 ; GERD (gastroesophageal reflux disease) K21.9 ; Insomnia G47.00 and COPD (chronic obstructive pulmonary disease) J44.[address] [address] Jun, [address] [address] Jun, [address] [address] May, Essential hypertension, ivis gn 401.1 ; Unspecified hypothyroidism 244.9 ; Insomnia, unspecified 780.52 ; Shortness of breath 786.05 ; Depression 311 ; COPD (chronic obstructive pulmonary disease) 496 ; GERD (gastroesophageal reflux disease) 530.81 and Diabetes 1.5, 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 [address] May, [address] [address] May, [address] [address] May, Shortness of breath 786.05 ; Essential hypertension, benign 401.1 ; Diabetes mellitus 250.00 ; Hyperlipidemia 272.4 ; Hypothyroid 244.9 ; Insomnia 780.52 and Cough 786.[address] [address] Apr, [address] [address] March, Shortness of breath 786.05 ; Nausea with vomiting 787.01 ; Essential hypertension, benign 401.1 ; Diabetes mellitus 250.00 ; Hyperlipidemia 272.[address] [facility] [address] [id number] [address] [place] [id number] [address], [address] [facility] [address] [id number] [address] [place] [phone] Feb, [facility] [address] [id number] [address] [place] [id number] Jan, [facility] [address] [id number] [address] [place] [phone] Jan, [facility] [address] [id number] [address] [place] [phone] Jan, [facility] [address] [id number] [address] [place] [phone] Jan, [facility] [address] [id number] [address] [place] [phone] Jan, [facility] [address] [id number] [address] [place] [phone] Jan, [facility] [address] [facility] [id number] [address] [place] [phone] Jan, [facility] [address] [id number] [address] [place] [phone] Jan, [facility] [address] [id number] [address] [place] [phone] Jan, [facility] [address] [id number] [address] [place] [phone] Jan, [facility] [address] [id number] [address] [place] [id number] Dec, [facility] [address] [id number] [address] [place] [phone] Dec, [facility] [address] [id number] [address] [place] [address], [place] [address] Dec, 2014 [facility] [address] [id number] [address] [place] [address], [place] [address] Dec, 2014 [facility] [address] [id number] [address] [place] [address], [place] [address] Dec, 2014 [facility] [address] [id number] [address] [place] [address], [place] [address] Dec, 2014 [facility] [address] [id number] [address] [place] [address], [place] [address] Dec, 2014 [facility] [address] [id number] [address] [place] [address], [place] [address] Dec, 2014 [facility] [address] [id number] [address] [place] [address], [place] [address] Dec, 2014 [facility] [address] [id number] [address] [place] [address], [place] [address] Dec, 2014 [facility] [address] [id number] [address] [place] [address], [place] [address] Oct, [facility] [address] [id number] [address] [place] [address], [place] [address] Oct, [facility] [address] [id number] [address] [place] [address], [place] [address] Oct, [facility] [address] [id number] [address] [place] [address], [place] [address] Oct, [facility] [address] [id number] [address] [place] [address], [place] [address] Oct, [facility] [address] [id number] [address] [place] [address], [place] [address] Oct, [facility] [address] [id number] [address] [place] [address], [place] [address] Oct, [facility] [address] [id number] [address] [place] [address], [place] [address] 05 Oct, 2014 [facility] [address] [id number] [address] [place] [address], [place] [address] Oct, [facility] [address] [id number] [address] [place] [address], [place] [address] Oct, [facility] [address] [id number] [address] [place] [address], [place] [address] Oct, [facility] [address] [id number] [address] [place] [address], [place] [address] Oct, [facility] [address] [id number] [address] [place] [address], [place] [address] Oct, [facility] [address] [id number] [address] [place] [address], [place] [address] Oct, [facility] [address] [id number] [address] [place] [address], [place] [address] Sep, [facility] [address] [id number] [address] [place] [address], [place] [address] Sep, [facility] [address] [id number] [address] [place] [address], [place] [address] Sep, [facility] [address] [id number] [address] [place] [address], [place] [address] Sep, [facility] [address] [id number] [address] [place] [address], [place] [address] Sep, [facility] [address] [id number] [address] [place] [address], [place] [address] Sep, [facility] [address] [id number] [address] [place] [address], [place] [address] Sep, [facility] [address] [id number] [address] [place] [address], [place] [address] Sep, [facility] [address] [id number] [address] [place] [address], [place] [address] Sep, [facility] [address] [id number] [address] [place] [address], [place] [address] Aug, [facility] [address] [id number] [address] [place] [address], [place] [address] Aug, [facility] [address] [id number] [address] [place] [address], [place] [address] Aug, [facility] [address] [id number] [address] [place] [address], [place] [address] Aug, [facility] [address] [id number] [address] [place] [address], [place] [address] 16 Aug, 2014 [facility] [address] [id number] [address] [place] [address], [place] [address] Aug, [facility] [address] [id number] [address] [place] [address], [place] [address] Aug, [facility] [address] [id number] [address] [place] [address], [place] [address] Aug, [facility] [address] [id number] [address] [place] [address], [place] [address] Aug, [facility] [address] [id number] [address] [place] [address], [place] [address] 29 Jul, 2014 [facility] [address] [id number] [address] [place] [address], [place] [address] 29 Jul, 2014 [facility] [address] [id number] [address] [place] [address], [place] [address] 25 Jul, 2013 [facility] [address] [id number] [address] [place] [address], [place] [address] 25 Jul, 2014 [facility] [address] [id number] [address] [place] [address], [place] [address] 25 Jul, 2013 [facility] [address] [id number] [address] [place] [address], [place] [address] 25 Jul, 2014 [facility] [address] [id number] [address] [place] [address], [place] [address] Jul, [facility] [address] [id number] [facility] [place] [address] Jul, [facility] [address] [id number] [address] [place] [address], [place] [address] Jul, [facility] [address] [id number] [address] [place] [address], [place] [address] Jul, [facility] [address] [id number] [address] [place] [address], [place] [address] Jun, [facility] [address] [id number] [address] [place] [address], [place] [address] Jun, [facility] [address] [id number] [address] [place] [address], [place] [address] Jun, [facility] [address] [id number] [address] [place] [address], [place] [address] Jun, [facility] [address] [id number] [address] [place] [address], [place] [address] Jun, [facility] [address] [id number] [address] [place] [address], [place] [address] Jun, [facility] [address] [id number] [address] [place] [address], [place] [address] Jun, [facility] [address] [id number] [address] [place] [address], [place] [address] Jun, [facility] [address] [id number] [address] [place] [address], [place] [address] Jun, [facility] [address] [id number] [address] [place] [address], [place] [address] Jun, [facility] [address] [id number] [address] [place] [address], [place] [address] Jun, [facility] [address] [id number] [address] [place] [address], [place] [address] Jun, [facility] [address] [id number] [facility] [place] [address] May, [facility] [address] [id number] [facility] [place] [address] May, [facility] [address] [id number] [facility] [place] [address] May, [facility] [address] [id number] [address] [place] [address], [place] [address] May, [facility] [address] [id number] [address] [place] [address], [place] [address] May, [facility] [address] [id number] [address] [place] [address], [place] [address] May, [facility] [address] [id number] [address] [place] [address], [place] [address] March, [facility] [address] [id number] [address] [place] [address], [place] [address] March, [facility] [address] [id number] [address] [place] [address], [place] [address] March, [facility] [address] [id number] [address] [place] [address], [place] [address] March, [facility] [address] [id number] [address] [place] [address], [place] [address] March, [facility] [address] [id number] [address] [place] [address], [place] [address] March, [facility] [address] [id number] [address] [place] [address], [place] [address] Feb, [facility] [address] [id number] [address] [place] [address], [place] [address] Feb, [facility] [address] [id number] [address] [place] [address], [place] [address] Feb, [facility] [address] [id number] [address] [place] [address], [place] [address] Feb, [facility] [address] [id number] [facility] [place] [address] Jan, [facility] [address] [id number] [address] [place] [address], [place] [address] Jan, [facility] [address] [id number] [address] [place] [address], [place] [address] Jan, [facility] [address] [id number] [address] [place] [address], [place] [address] Jan, [facility] [address] [id number] [address] [place] [address], [place] [address] Jan, [facility] [address] [id number] [address] [place] [address], [place] [address] Jan, [facility] [address] [id number] [address] [place] [address], [place] [address] Jan, [facility] [address] [id number] [address] [place] [address], [place] [address] Jan, [facility] [address] [id number] [address] [place] [address], [place] [address] Jan, [facility] [address] [id number] [address] [place] [address], [place] [address] Jan, [facility] [address] [id number] [address] [place] [address], [place] [address] Jan, [facility] [address] [id number] [address] [place] [address], [place] [address] Jan, [facility] [address] [id number] [address] [place] [address], [place] [address] Dec, [facility] [address] [id number] [address] [place] [address], [place] [address] Dec, [facility] [address] [id number] [address] [place] [address], [place] [address] Dec, [facility] [address] [id number] [address] [place] [address], [place] [address] Dec, [facility] [address] [id number] [address] [place] [address], [place] [address] Dec, [facility] [address] [id number] [address] [place] [address], [place] [address] Dec, [facility] [address] [id number] [address] [place] [address], [place] [address] Nov, [facility] [address] [id number] [address] [place] [address], [place] [address] Nov, [facility] [address] [id number] [address] [place] [address], [place] [address] Oct, [facility] [address] [id number] [address] [place] [address], [place] [address] Oct, [facility] [address] [id number] [address] [place] [address], [place] [address] Oct, [facility] [address] [id number] [address] [place] [address], [place] [address] Oct, [facility] [address] [id number] [address] [place] [address], [place] [address] Oct, [facility] [address] [id number] [address] [place] [address], [place] [address] Oct, [facility] [address] [id number] [address] [place] [address], [place] [address] Sep, [facility] [address] [id number] [address] [place] [address], [place] [address] Sep, [facility] [address] [id number] [address] [place] [address], [place] [address] Sep, [facility] [address] [id number] [address] [place] [address], [place] [address] Sep, [facility] [address] [id number] [address] [place] [address], [place] [address] Aug, [facility] [address] [id number] [address] [place] [address], [place] [address] Aug, [facility] [address] [id number] [address] [place] [address], [place] [address] Aug, [facility] [address] [id number] [address] [place] [address], [place] [address] 17 Jul, 2013 [facility] [address] [id number] [address] [place] [address], [place] [address] 14 Jul, 2013 [facility] [address] [id number] [address] [place] [address], [place] [address] Jul, [facility] [address] [id number] [address] [place] [address], [place] [address] Jun, [facility] [address] [id number] [address] [place] [address], [place] [address] Jun, [facility] [address] [id number] [address] [place] [address], [place] [address] Jun, [facility] [address] [id number] [address] [place] [address], [place] [address] Apr, [facility] [address] [id number] [address] [place] [address], [place] [address] Apr, [facility] [address] [id number] [address] [place] [address], [place] [address] March, [facility] [address] [id number] [address] [place] [address], [place] [address] March, [facility] [address] [id number] [address] [place] [address], [place] [address] March, [facility] [address] [id number] [address] [place] [address], [place] [address] March, [facility] [address] [id number] [address] [place] [address], [place] [address] Feb, [facility] [address] [id number] [address] [place] [address] Jan, [facility] [address] [id number] [address] [place] [address], [place] [address] 13 Dec, 2012 [facility] [address] [id number] [address] [place] [address], [place] [address] 08 Dec, 2012 [facility] [address] [id number] [address] [place] [address], [place] [address] Dec, [facility] [address] [id number] [address] [place] [address], [place] [address] Nov, [facility] [address] [id number] [address] [place] [address], [place] [address] Oct, [facility] [address] [id number] [address] [place] [address], [place] [address] Oct, [facility] [address] [id number] [address] [place] [address], [place] [address] Sep, [facility] [address] [id number] [address] [place] [address], [place] [address] Sep, [facility] [address] [id number] [address] [place] [address], [place] [address] Sep, [facility] [address] [id number] [address] [place] [address], [place] [address] Sep, [facility] [address] [id number] [address] [place] [address], [place] [address] Sep, [facility] [address] [id number] [address] [place] [address] Sep, [facility] [address] [id number] [address] [place] [address], [place] [address] Sep, [facility] [address] [id number] [address] [place] [address], [place] [address] Aug, [facility] [address] [id number] [address] [place] [address] Aug, [facility] [address] [id number] [address] [place] [address], [place] [address] 10 Aug, 2012 [facility] [address] [id number] [address] [place] [address], [place] [address] Aug, [facility] [address] [id number] [address] [place] [address], [place] [address] 08 Aug, 2012 [facility] [address] [id number] [address] [place] [address], [place] [address] 08 Aug, 2012 [facility] [address] [id number] [address] [place] [address], [place] [address] Aug, [facility] [address] [id number] [address] [place] [address], [place] [address] Aug, [facility] [address] [id number] [address] [place] [address], [place] [address] Jul, [facility] [address] [id number] [address] [place] [address], [place] [address] Jul, [facility] [address] [id number] [address] [place] [address], [place] [address] Jun, [facility] [address] [id number] [address] [place] [address], [place] [address] May, [facility] [address] [id number] [address] [place] [address], [place] [address] Apr, [facility] [address] [id number] [address] [place] [address], [place] [address] Apr, [facility] [address] [id number] [address] [place] [address], [place] [address] Apr, [facility] [address] [id number] [address] [place] [address], [place] [address] March, [facility] [address] [id number] [address] [place] [address], [place] [address] March, [facility] [address] [id number] [address] [place] [address], [place] [address] March, [facility] [address] [id number] [address] [place] [address], [place] [address] March, [facility] [address] [id number] [address] [place] [address], [place] [address] March, [facility] [address] [id number] [address] [place] [address], [place] [address] March, [facility] [address] [id number] [address] [place] [address], [place] [address] March, [facility] [address] [id number] [address] [place] [address], [place] [address] Jan, [facility] [address] [id number] [address] [place] [address], [place] [address] Jan, [facility] [address] [id number] [address] [place] [address], [place] [address] Jan, [facility] [address] [id number] [address] [place] [address], [place] [address] Jan, [facility] [address] [id number] [address] [place] [address], [place] [address] Jan, [facility] [address] [id number] [address] [place] [address], [place] [address] Dec, [facility] [address] [id number] [address] [place] [address], [place] [address] Dec, [facility] [address] [id number] [address] [place] [address], [place] [address] Nov, [facility] [address] [id number] [address] [place] [address], [place] [address] Nov, [facility] [address] [id number] [address] [place] [address], [place] [address] Nov, [facility] [address] [id number] [address] [place] [address], [place] [address] Nov, [facility] [address] [id number] [address] [place] [address], [place] [address] 21 Oct, 2011 [facility] [address] [id number] [address] [place] [address], [place] [address] 06 Oct, 2011 [facility] [address] [id number] [address] [place] [address], [place] [address] 14 Sep, 2011 [facility] [address] [id number] [address] [place] [address], [place] [address] 10 Sep, 2011 [facility] [address] [id number] [address] [place] [address], [place] [address] 10 Sep, 2011 [facility] [address] [id number] [address] [place] [address], [place] [address] 11 May, 2011 [facility] [address] [id number] [address] [place] [address], [place] [address] Nov, [facility] [address] [id number] [address] [place] [address], [place] [address] 29 Oct, 2010 [facility] [address] [id number] [address] [place] [address], [place] [address] 14 Oct, 2010 [facility] [address] [id number] [address] [place] [address], [place] [address] 08 Oct, 2010 [facility] [address] [id number] [address] [place] [address], [place] [address] 15 Sep, 2010 [facility] [address] [id number] [address] [place] [address], [place] [address] Sep, [facility] [address] [id number] [address] [place] [address], [place] [address] Aug, [facility] [address] [id number] [address] [place] [address], [place] [id number] March, [facility] [address] [id number] [address] [place] [address], [place] [address] Oct, [facility] [address] [id number] [address] [place] [address], [place] [address] Oct, [facility] [address] [id number] [address] [place] [id number] Oct, [facility] [address] [id number] [address] [place] [phone] Oct, [facility] [address] [id number] [address] [place] [phone] Sep, [facility] [address] [id number] [address] [place] [phone] Sep, [facility] [address] [id number] [address] [place] [id number] Sep, [facility] [address] [id number] [address] [place] [id number] Aug, [facility] [address] [id number] [address] [place] [id number] Aug, [facility] [address] [id number] [address] [place] [phone] Aug, [facility] [address] [id number] [address] [place] [phone] Jan, IMMUNIZATIONS No Known Immunizations SOCIAL HISTORY Never Assessed REASON FOR VISIT pain from rash, rash is invisable but skin is painful when touched all over abd, arms and legs----DBennettRN, frequent falls, reports "blacking out" numerous time in the last week, almost every time he stands up, hgb 8.8 PLAN OF CARE Activity Details Follow Up 3 Months, prn Reason:CHM/DM Future/Pending Procedure ROUTINE VENIPUNCTURE VITAL SIGNS Height 69 in 2018-05-20 Weight 178 lbs 2018-05-20 Temperature 97.8 degrees Fahrenheit 2018-05-20 Heart Rate 90 bpm 2018-05-20 Respiratory Rate 20 2018-05-20 BMI 26.28 kg/m2 2018-05-20 Blood pressure systolic 92 mmHg 2018-05-20 Blood pressure diastolic 66 mmHg 2018-05-20 MEDICATIONS Medication Instructions Dosage Frequency Start Date End Date Duration S gato Lisinopril 10 mg Orally Once a day 1 tablet 24h Jan, 90 days Active Hydrocodone-Acetaminophen 5-325 MG Orally 3 times a day 1 tablet as needed 8h Feb, 28 days Active NovoLog Flexpen 100 UNIT/ML Subcutaneous 3 times a day wit meals 10 units 14 Jan, 2017 12 months Active MetFORMIN HCl ER 500 mg Orally twice a day 2 tablets 12h 90 days Active Proventil HFA 108 (90 Base) MCG/ACT Inhalation every 4 hrs 2 puffs as needed 4h May, 12 months Active Welchol 625 MG Orally Once a day 1 capsule 24h Apr, 90 days Active Dicyclomine HCl 20 mg Orally 4 times a day TAKE ONE TABLET B Y MOUTH FOUR TIMES DAILY 6h 90 days Active Victoza 18 MG/3ML Subcutaneous Once a day 1.8 mg 24h 12 months Active Levothyroxine Sodium 125 MCG Orally Once a day on an e mpty stomach with a full glass of water 1 tablet Active Trazodone HCl 50 mg Orally Once a day 1 tablet at bedtime as needed 24h 28 Apr, 2018 30 day(s) Active Pravastatin Sodium 20 mg Orally Once a day 1 tablet 24h March, 90 days Active Levemir FlexTouch 100 UNIT/ML Subcutaneous 2 times a day INJ ECT 50 UNITS SUBCUTANEOUSLY TWICE DAILY (MUST KEEP APPOINTMENT ON 11/08 FOR REFILLS) 12h Active Oxybutynin Chloride 5 mg Orally Twice a day 1 tablet 12h 90 days Active Gabapentin 300 MG Orally Once a day 1 capsule before bedtime 24h Jan, 90 days Active Omeprazole 20 mg Orally 2 times a day TAKE ONE CAPSULE BY MOUTH TWI CE DAILY 12h 90 days Active RESULTS Name Result Date Reference Range HEMOGLOBIN (IN HOUSE) 2018-05-20 HEMOGLOBIN 8.8 11.5 - 16 gm/dL Lot # [id number] Exp date 08/20/19 CBC 2018-05-20 WHITE BLOOD CELL COUNT 8.9 3.8-10.8 RED BLOOD CELL COUNT 3.98 4.20-5.80 HEMOGLOBIN 12.0 13.2-17.1 HEMATOCRIT 35.7 38.5-50.0 MCV 89.7 80.0-100.0 MCH 30.2 27.0-33.0 MCHC 33.6 32.0-36.0 RDW 13.4 11.0-15.0 PLATELET COUNT 399 140-400 MPV 10.2 7.5-12.5 ABSOLUTE NEUTROPHILS 4948 [id number] ABSOLUTE LYMPHOCYTES 3124 850-3900 ABSOLUTE MONOCYTES 596 200-950 ABSOLUTE EOSINOPHILS 142 15-500 ABSOLUTE BASOPHILS 89 0-200 NEUTROPHILS 55.6 LYMPHOCYTES 35.1 MONOCYTES 6.7 EOSINOPHILS 1.6 BASOPHILS 1.0 PROCEDURES Procedure Date Ordered Result Body Site LAB [facility] May 20, 2018 HEMOGLOBIN May 20, 2018 VENIPUNCT, ROUTINE* May 20, 2018 INSTRUCTIONS MEDICATIONS ADMINISTERED No Known Medications [...]
--- OUTSIDE RECORDS SUMMARY | 2020-06-13 16:25 | XMS REPORT ---
Author Author Jah PARKER Organization [facility] Address [address] [place] [address] Care Team Providers Care District Traffic Chief Name Role Phone PARKERSHAYLEE MckeonELE Unavailable PROBLEMS Type Condition ICD9-CM Code TRZ91-YB Code Onset Dates Condition S tatus SNOMED Code Problem Type 2 diabetes mellitus with hyperglycemia E11.65 Active 88360082 Problem Pulmonary emphysema, unspecified emphysema type J4 3.9 Active 03422905 Problem Essential (primary) hypertension I10 Active 29660173 Problem Hypertriglyceridemia E78.1 Active 125085322 Problem Major depressive disorder, recurrent episode, moderate F33.1 Active 663817810 Problem Recurrent major depressive disorder, in partial remission F33.41 Active 95153943 Problem Current non-adherence to medical treatment Z91.19 Active 8126881 Problem Anxiety disorder, unspecified type F41.9 Active 642522183 Problem Chronic fatigue R53.82 Active 8422 9001 Problem Chronic pain G89.29 Active 5117910 1 Problem Neuropathy G62.9 Active 722206331 Problem Thrombocytosis D47.3 Active 33291 09 Problem Mixed hyperlipidemia E78.2 Active 808046923 Problem Gastroesophageal reflux disease with esophagitis K 21.0 Active 989856298 Problem Hypothyroid E03.9 Active 41474141 Problem Irritable bowel syndrome with diarrhea K58.0 Active 174389242 Problem Overactive bladder N32.81 Active 2 37541402 Problem 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.4 Active 411064344 ALLERGIES No Information ENCOUNTERS Encounter Location Date Diagnosis [facility] [address] [facility] [id number] [address] [place] [address] Jun, Type 2 diabetes mellitus wit h hyperglycemia E11.65 ; Neuropathy G62.9 ; Recurrent major depressive disorder, in partial remission F33.41 ; Chronic pain G89.29 and Hypertriglyceridemia E78.1 [facility] [address] [facility] [id number] [address] [place] [address] Jun, Hypothyroid E03.9 [facility] [address] [id number] [address] [place] [address] Jun, Major depressive disorder, r ecurrent episode, moderate F33.1 and Anxiety disorder, unspecified type F41.9 [facility] [address] [id number] [address] [place] [address] Jun, [place] [address] [facility] [id number] [address] [place] [address] Jun, Type 2 diabetes mellitus wit h hyperglycemia E11.65 ; 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 ; Recurrent major depressive disorder, in partial remission F33.41 ; Hypothyroid E03.9 ; Candidal dermatitis B37.2 and Weakness generalized R53.1 [place] [address] [facility] [id number] [address] [place] [address] May, [place] [address] [id number] [address] [place] [address] May, [place] [address] [id number] [address] [place] [address] May, [place] [address] [facility] [id number] [address] [place] [address] May, Generalized abdominal pain R 10.84 and Candidal dermatitis B37.2 [place] [address] [facility] [id number] [address] [place] [address] May, [place] [address] [id number] [address] [place] [address] May, [place] [address] [facility] [id number] [address] [place] [address] May, Nodular radiologic density R 93.8 ; Weight loss, unintentional R63.4 and Pulmonary emphysema, unspecified emphysema type J43.9 [place] [address] [facility] [id number] [address] [place] [address] May, Chronic pain G89.29 [facility] [address] [id number] [address] [place] [address] 09 May, 2018 Syncope and collapse R55 ; C hronic fatigue R53.[address] lung screening R91.8 [facility] [address] [id number] [address] [place] [address] May, [facility] [address] [id number] [address] [place] [address] Apr, Chronic fatigue R53.82 ; Abn ormal chest CT R93.8 ; Elevated erythrocyte sedimentation rate R70.0 ; Hypothyroid E03.9 and Recurrent major depressive disorder, in partial remission F33.41 [facility] [address] [id number] [address] [place] [address] Apr, Hypothyroid E03.9 [facility] [address] [id number] [address] [place] [address] Apr, Depression F32.9 [facility] [address] [id number] [address] [place] [address] Apr, [facility] [address] [id number] [address] [place] [address] March, [facility] [address] [facility] [id number] [address] [place] [address] March, Hypothyroid E03.9 [facility] [address] [facility] [id number] [address] [place] [address] March, Diabetes mellitus E11.9 and Hypothyroid E03.9 [facility] [address] [id number] [address] [place] [address] March, Diabetes mellitus E11.9 [facility] [address] [facility] [id number] [address] [place] [address] March, Hypothyroid E03.9 and Elevat ed liver enzymes R74.8 [facility] [address] [facility] [id number] [address] [place] [address] March, Type 2 diabetes mellitus wit h [...] major depressive disorder, in partial remission F33.41 [place] [id number] [place] [address] Feb, Chronic pain G89.29 [place] [id number] [place] [address] Feb, Type 2 diabetes mellitus wit h hyperglycemia E11.65 and Skin lesion of scalp L98.9 [place] [id number] [address] [place] [address] Feb, [place] [address] [address] Jan, Type 2 diabetes mellitus wit h hyperglycemia E11.65 ; 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 ; Essential (primary) hypertension I10 ; Pulmonary emphysema, unspecified emphysema type J43.9 ; Chronic pain G89.29 ; Controlled substance agreement signed Z79.899 ; Hypothyroid E03.9 ; Neuropathy G62.9 ; Gastroesophageal reflux disease with esophagitis K21.0 ; Overactive bladder N32.81 ; Depression F32.9 and Irritable bowel syndrome with diarrhea K58.0 [place] [address] [place] [id number] [address] [place] [address] Jan, [place] [address] [place] [id number] [address] [place] [address] Jan, Controlled substance agreeme nt signed Z79.899 [place] [address] [place] [id number] [address] [place] [address] Dec, Type 2 diabetes mellitus wit h hyperglycemia E11.65 ; Controlled substance agreement signed Z79.899 ; 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 ; Essential (primary) hypertension I10 ; Hypothyroid E03.9 ; Neuropathy G62.9 ; Depression F32.9 ; Mixed hyperlipidemia E78.2 ; Irritable bowel syndrome with diarrhea K58.0 ; Gastroesophageal reflux disease with esophagitis K21.0 ; Thrombocytosis D47.3 ; Current non-adherence to medical treatment Z91.19 and Overweight (BMI 25.0-29.9) E66.3 [place] [address] [facility] [id number] [address] [place] [address] 02 Dec, 2017 Controlled substance agreeme nt signed Z79.899 [place] [address] [place] [id number] [address] [place] [address] Nov, Type 2 diabetes mellitus wit h hyperglycemia E11.65 and Current non- adherence to medical treatment Z91.19 [place] [address] [facility] [id number] [address] [place] [address] Nov, [place] [address] [facility] [id number] [address] [place] [address] Nov, Chronic pain G89.29 [place] [address] [place] [id number] [address] [place] [address] Nov, [place] [address] [place] [id number] [address] [place] [address] Nov, Hypothyroid E03.9 [place] [address] [facility] [id number] [address] [place] [address] Nov, Hypothyroid E03.9 [place] [address] [facility] [id number] [address] [place] [address] Nov, Pulmonary emphysema, unspeci fied emphysema type J43.9 and Irritable bowel syndrome with diarrhea K58.0 [place] [address] [facility] [id number] [address] [place] [address] Oct, [place] [address] [place] [id number] [address] [place] [address] Oct, [place] [id number] [place] [address] Oct, [place] [address] [facility] [id number] [address] [place] [address] Oct, [place] [address] [place] [id number] [address] [place] [address] Oct, Chronic pain G89.29 [place] [address] [address] Oct, Diabetes mellitus E11.9 ; De pression F32.9 ; Mixed hyperlipidemia E78.2 ; Hypotension, unspecified hypotension type I95.9 ; Pulmonary emphysema, unspecified emphysema type J43.9 and Weight loss, unintentional R63.4 [place] [address] [address] Oct, Chronic pain G89.29 [place] [address] [address] Sep, Chronic pain G89.29 [place] [address] [address] Sep, Hypothyroid E03.9 and Diabet es mellitus E11.9 [place] [address] [address] Aug, Type 2 diabetes mellitus wit h hyperglycemia E11.65 ; 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 ; Essential (primary) hypertension I10 ; Hypothyroid E03.9 ; Neuropathy G62.9 ; Chronic pain G89.29 ; Mixed hy perlipidemia E78.2 and Encounter for immunization Z23 [place] [address] [place] [id number] [address] [place] [address] Aug, Chronic pain G89.29 [place] [address] [place] [id number] [address] [place] [address] Aug, Overactive bladder N32.81 ; Diabetes mellitus E11.9 and Chronic pain G89.29 [place] [address] [place] [id number] [place] [address] Jul, [facility] [address] [facility] [id number] [address] [place] [address] Jun, [facility] [address] [facility] [id number] [address] [place] [address] Jun, [facility] [address] [facility] [id number] [address] [place] [address] Jun, Hypothyroid E03.9 [facility] [address] [facility] [id number] [address] [place] [address] Jun, Diabetes mellitus E11.9 ; Hy pothyroid E03.9 ; Neuropathy G62.9 ; Chronic pain G89.29 and Neck mass R22.1 [facility] [address] [facility] [id number] [address] [place] [address] Apr, [facility] [address] [facility] [id number] [address] [place] [address] Apr, Acute cystitis without hemat uria N30.00 [facility] [address] [facility] [id number] [address] [place] [address] March, [facility] [address] [facility] [id number] [address] [place] [address] March, [facility] [address] [facility] [id number] [address] [place] [address] March, Near syncope R55 [facility] [address] [facility] [id number] [address] [place] [address] Feb, [facility] [address] [facility] [id number] [address] [place] [address] Feb, Chronic pain G89.29 [facility] [address] [facility] [id number] [address] [place] [address] Feb, [facility] [address] [facility] [id number] [address] [place] [address] Feb, [facility] [address] [place] [id number] [address] [place] [address] Jan, Chronic pain G89.29 [facility] [address] [address] Jan, [facility] [address] [address] 16 Jan, 2017 [facility] [address] [address] 14 Jan, 2017 Diabetes mellitus E11.9 ; Hy pothyroid E03.9 ; GERD (gastroesophageal reflux disease) K21.9 ; Insomnia G47.00 ; Functional diarrhea K59.1 ; Neuropathy G62.9 ; Depression F32.9 ; Chronic pain G89.29 ; Irritable bowel syndrome with diarrhea K58.0 ; Overactive bladder N32.81 ; Mixed hyperlipidemia E78.2 and Bronchitis J40 [facility] [address] [address] Dec, [facility] [address] [place] [id number] [address] [place] [address] Dec, [facility] [address] [address] Dec, [facility] [address] [place] [id number] [address] [place] [address] Dec, [facility] [address] [place] [id number] [address] [place] [address] Dec, Chronic pain G89.29 [facility] [address] [place] [id number] [address] [place] [address] Dec, [facility] [address] [place] [id number] [address] [place] [address] Dec, [facility] [address] [place] [id number] [address] [place] [address] Dec, Type 2 diabetes mellitus wit h foot ulcer E11.621 [place] [address] [place] [id number] [address] [place] [address] 17 Dec, 2016 Type 2 diabetes mellitus wit h foot ulcer E11.621 [place] [address] [place] [id number] [place] [address] 14 Dec, 2016 HTN (hypertension) I10 ; Dep ression F32.9 ; Type 2 diabetes mellitus with foot ulcer E11.621 ; Functional diarrhea K59.1 ; Irritable bowel syndrome with diarrhea K58.0 ; Chronic pain G89.29 ; Insomnia G47.00 ; Overactive bladder N32.81 ; Mixed hyperlipidemia E78.2 ; Gastroesophageal reflux disease with esophagitis K21.0 and Acquired hypothyroidism E03.9 [place] [address] [address] Nov, [place] [address] [address] Oct, [place] [address] [address] Oct, [place] [address] [address] Oct, [place] [address] [address] Sep, Functional diarrhea K59.1 ; HTN (hypertension) I10 ; Diabetes mellitus E11.9 ; Depression F32.9 ; Overactive bladder N32.81 ; Mixed hyperlipidemia E78.2 ; Gastroesophageal reflux disease without esophagitis K21.9 ; Chronic pain G89.29 ; Insomnia G47.00 and Acquired hypothyroidism E03.9 [place] [address] [address] Sep, [place] [address] [address] Aug, Encounter for immunization Z 23 [place] [address] [address] Aug, [place] [address] [address] Jul, [place] [address] [address] Jun, Type 2 diabetes mellitus wit hout complications E11.9 ; HTN (hypertension) I10 ; Hypothyroid E03.9 ; Neuropathy G62.9 ; Depression F32.9 ; Chronic pain G89.29 ; GERD (gastroesophageal reflux disease) K21.9 ; Insomnia G47.00 ; Overactive bladder N32.81 ; Mixed hyperlipidemia E78.2 ; Diarrhea of infectious origin A09 and Environmental allergies Z91.09 [place] [address] [address] Apr, [place] [address] [address] March, Hypothyroidism, unspecified E03.9 and Mixed hyperlipidemia E78.2 [place] [address] [address] March, Diabetes mellitus E11.9 ; HT N (hypertension) I10 ; Hypothyroid E03.9 ; Depression F32.9 ; Overactive bladder N32.81 ; Other chronic pain G89.29 ; Lumbago with sciatica, unspecified side M54.40 ; Environmental allergies Z91.09 and Gastroesophageal reflux disease, esophagitis presence not specified K21.9 [place] [address] [address] March, [place] [address] [address] Jan, HTN (hypertension) I10 ; Hyp othyroid E03.9 ; Neuropathy G62.9 ; Diabetes mellitus E11.9 ; Chronic pain G89.29 ; GERD (gastroesophageal reflux disease) K21.9 ; Overactive bladder N32.81 and Depression F32.9 [place] [address] [address] Dec, Ear pain, left H92.02 ; HTN (hypertension) I10 ; Hypothyroid E03.9 ; Neuropathy G62.9 ; Diabetes mellitus E11.9 ; Depression F32.9 ; GERD (gastroesophageal reflux disease) K21.9 ; Insomnia G47.00 and Overactive bladder N32.81 [place] [address] [place] [address] Nov, Overactive bladder N32.81 an d Chronic pain G89.29 [place] [address] [place] [id number] [place] [address] Nov, Kidney failure N19 [place] [address] [place] [id number] [place] [address] Nov, [place] [address] [place] [id number] [address] [place] [address] Nov, [place] [address] [address] Nov, Diabetes mellitus E11.9 ; De pression F32.9 ; Chronic pain G89.29 ; GERD (gastroesophageal reflux disease) K21.9 ; Insomnia G47.00 ; HTN (hypertension) I10 ; Hypothyroid E03.9 ; COPD (chronic obstructive pulmonary disease) J44.9 ; Bladder incontinence R32 and Incontinence R32 [place] [address] [place] [address] Sep, Type 2 diabetes mellitus wit h foot ulcer E11.621 and Chromosomal abnormality, 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 [place] [address] [place] [id number] [address] [place] [address] Sep, [place] [address] [place] [id number] [place] [address] Aug, [place] [address] [place] [id number] [address] [place] [address] Aug, [place] [address] [place] [id number] [place] [address] Aug, HTN (hypertension) I10 ; Enc ounter for immunization Z23 ; Hypothyroid E03.9 ; Neuropathy G62.9 ; Diabetes mellitus E11.9 ; Depression F32.9 ; Chronic pain G89.29 ; GERD (gastroesophageal reflux disease) K21.9 ; Insomnia G47.00 and COPD (chronic obstructive pulmonary disease) J44.[address] [address] Jun, [address] [address] Jun, [address] [address] May, Essential hypertension, ivis gn 401.1 ; Unspecified hypothyroidism 244.9 ; Insomnia, unspecified 780.52 ; Shortness of breath 786.05 ; Depression 311 ; COPD (chronic obstructive pulmonary disease) 496 ; GERD (gastroesophageal reflux disease) 530.81 and Diabetes 1.5, 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 [address] May, [address] [address] May, [address] [address] May, Shortness of breath 786.05 ; Essential hypertension, benign 401.1 ; Diabetes mellitus 250.00 ; Hyperlipidemia 272.4 ; Hypothyroid 244.9 ; Insomnia 780.52 and Cough 786.[address] [address] Apr, [address] [address] March, Shortness of breath 786.05 ; Nausea with vomiting 787.01 ; Essential hypertension, benign 401.1 ; Diabetes mellitus 250.00 ; Hyperlipidemia 272.4 and Hypothyroid 244.[address] [address] 14 Feb, 2015 [facility] [address] [id number] [address] [place] [address], [place] [address] Feb, [facility] [address] [id number] [address] [place] [address], [place] [address] Jan, [facility] [address] [id number] [address] [place] [address], [place] [address] Jan, [facility] [place] [facility] [address] [id number] [address] [place] [address], [place] [address] Jan, [facility] [address] [id number] [address] [place] [address], [place] [address] Jan, [facility] [address] [id number] [address] [place] [address], [place] [address] Jan, [facility] [address] [id number] [address] [place] [address], [place] [address] Jan, [facility] [address] [id number] [address] [place] [address], [place] [address] Jan, [facility] [address] [id number] [address] [place] [address], [place] [address] Jan, [facility] [address] [id number] [address] [place] [address], [place] [address] Jan, [facility] [address] [id number] [address] [place] [address], [place] [address] Jan, [facility] [place] [facility] [address] [id number] [address] [place] [address], [place] [address] Dec, [facility] [place] [facility] [address] [id number] [address] [place] [address], [place] [address] Dec, [facility] [place] [facility] [address] [id number] [address] [place] [address], [place] [address] Dec, [facility] [place] [facility] [address] [id number] [address] [place] [address], [place] [address] Dec, [facility] [place] [facility] [address] [id number] [address] [place] [address], [place] [address] Dec, 2014 [facility] [address] [id number] [address] [place] [address], [place] [address] Dec, 2014 [facility] [address] [id number] [address] [place] [address], [place] [address] Dec, 2014 [facility] [place] [facility] [address] [id number] [address] [place] [address], [place] [address] Dec, 2014 [facility] [address] [id number] [address] [place] [address], [place] [address] Dec, 2014 [facility] [address] [id number] [address] [place] [address], [place] [address] Dec, 2014 [facility] [address] [id number] [address] [place] [address], [place] [address] Oct, [facility] [address] [id number] [address] [place] [address], [place] [address] Oct, [facility] [address] [id number] [address] [place] [address], [place] [id number] Oct, [facility] [address] [id number] [address] [place] [address], [place] [id number] Oct, [facility] [address] [id number] [address] [place] [id number] Oct, [facility] [address] [id number] [address] [place] [id number] Oct, [facility] [address] [id number] [address] [place] [address], [place] [id number] Oct, [facility] [address] [id number] [address] [place] [address], [place] [id number] Oct, [facility] [address] [id number] [address] [place] [id number] Oct, [facility] [address] [id number] [address] [place] [address], [place] [address] Oct, [facility] [address] [id number] [address] [place] [address], [place] [id number] Oct, [facility] [address] [id number] [address] [place] [address], [place] [id number] Oct, [facility] [address] [id number] [address] [place] [address], [place] [address] Oct, [facility] [address] [id number] [address] [place] [address], [place] [id number] Oct, [facility] [address] [id number] [address] [place] [address], [place] [id number] Sep, [facility] [address] [id number] [address] [place] [address], [place] [id number] Sep, [facility] [address] [id number] [address] [place] [address], [place] [id number] Sep, [facility] [address] [id number] [address] [place] [address], [place] [id number] Sep, [facility] [address] [id number] [address] [place] [address], [place] [id number] Sep, [facility] [address] [id number] [address] [place] [address], [place] [id number] Sep, [facility] [address] [id number] [address] [place] [address], [place] [id number] Sep, [facility] [address] [id number] [address] [place] [address], [place] [address] Sep, [facility] [address] [id number] [address] [place] [address], [place] [address] Sep, [facility] [address] [id number] [address] [place] [address], [place] [address] Aug, [facility] [address] [id number] [address] [place] [address], [place] [address] Aug, [facility] [address] [id number] [address] [place] [address], [place] [address] 17 Aug, 2013 [facility] [address] [id number] [address] [place] [address], [place] [address] 17 Aug, 2014 [facility] [address] [id number] [address] [place] [address], [place] [address] 16 Aug, 2013 [facility] [address] [id number] [address] [place] [address], [place] [address] Aug, [facility] [address] [id number] [address] [place] [address], [place] [address] Aug, [facility] [address] [id number] [address] [place] [address], [place] [address] Aug, [facility] [address] [id number] [address] [place] [address], [place] [address] Aug, [facility] [address] [id number] [address] [place] [address], [place] [address] 29 Jul, 2013 [facility] [address] [id number] [address] [place] [address], [place] [address] 29 Sep, 2013 [facility] [address] [id number] [address] [place] [address], [place] [address] 25 Sep, 2013 [facility] [address] [id number] [address] [place] [address], [place] [address] 25 Sep, 2013 [facility] [address] [id number] [address] [place] [address], [place] [address] 25 Sep, 2013 [facility] [address] [id number] [address] [place] [address], [place] [address] 25 Sep, 2013 [facility] [address] [id number] [address] [place] [address], [place] [address] 25 Jul, 2013 [facility] [address] [id number] [address] [place] [address], [place] [address] 25 Jul, 2013 [facility] [address] [id number] [address] [place] [address], [place] [address] Jul, [facility] [address] [id number] [facility] [place] [address] Jul, [facility] [address] [id number] [facility] [place] [address] Jun, [facility] [address] [id number] [facility] [place] [address] Jun, [facility] [address] [id number] [address] [place] [address], [place] [address] Jun, [facility] [address] [id number] [facility] [place] [address] Jun, [facility] [address] [id number] [address] [place] [address], [place] [address] Jun, [facility] [address] [id number] [address] [place] [address], [place] [address] Jun, [facility] [address] [id number] [address] [place] [address], [place] [address] Jun, [facility] [address] [id number] [address] [place] [address], [place] [address] Jun, [facility] [address] [id number] [address] [place] [address], [place] [address] Jun, [facility] [address] [id number] [address] [place] [address], [place] [address] Jun, [facility] [address] [id number] [address] [place] [address], [place] [address] Jun, [facility] [address] [id number] [address] [place] [address], [place] [address] Jun, [facility] [address] [id number] [address] [place] [address], [place] [address] May, [facility] [address] [id number] [address] [place] [address], [place] [address] May, [facility] [address] [id number] [facility] [place] [address] May, [facility] [address] [id number] [address] [place] [address], [place] [address] May, [facility] [address] [id number] [address] [place] [address], [place] [address] May, [facility] [address] [id number] [address] [place] [address], [place] [address] May, [facility] [address] [id number] [address] [place] [address], [place] [address] March, [facility] [address] [id number] [address] [place] [address], [place] [address] March, [facility] [address] [id number] [address] [place] [address], [place] [address] March, [facility] [address] [id number] [address] [place] [address], [place] [address] March, [facility] [address] [id number] [address] [place] [address], [place] [address] March, [facility] [address] [id number] [address] [place] [address], [place] [address] March, [facility] [address] [id number] [address] [place] [address], [place] [address] Feb, [facility] [address] [id number] [address] [place] [address], [place] [address] Feb, [facility] [address] [id number] [address] [place] [address], [place] [address] Feb, [facility] [address] [id number] [address] [place] [address], [place] [address] Feb, [facility] [address] [id number] [address] [place] [address], [place] [address] Jan, [facility] [address] [id number] [address] [place] [address], [place] [address] Jan, [facility] [address] [id number] [facility] [place] [address] Jan, [facility] [address] [id number] [facility] [place] [address] Jan, [facility] [address] [id number] [facility] [place] [address] Jan, [facility] [address] [id number] [address] [place] [address], [place] [address] Jan, [facility] [address] [id number] [address] [place] [address], [place] [address] Jan, [facility] [address] [id number] [address] [place] [address], [place] [address] Jan, [facility] [address] [id number] [address] [place] [address], [place] [address] Jan, [facility] [address] [id number] [address] [place] [address], [place] [address] Jan, [facility] [address] [id number] [address] [place] [address], [place] [address] Jan, [facility] [address] [id number] [address] [place] [address], [place] [address] Jan, [facility] [address] [id number] [address] [place] [address], [place] [address] Dec, [facility] [address] [id number] [address] [place] [address], [place] [address] Dec, [facility] [address] [id number] [address] [place] [address], [place] [address] Dec, [facility] [address] [id number] [address] [place] [address], [place] [address] Dec, [facility] [address] [id number] [address] [place] [address], [place] [address] Dec, [facility] [address] [id number] [address] [place] [address] Dec, [facility] [address] [id number] [address] [place] [address], [place] [address] Nov, [facility] [address] [id number] [address] [place] [address], [place] [address] Nov, [facility] [address] [id number] [address] [place] [address], [place] [address] Oct, [facility] [address] [id number] [address] [place] [address], [place] [address] Oct, [facility] [address] [id number] [address] [place] [address], [place] [address] Oct, [facility] [address] [id number] [address] [place] [address], [place] [address] Oct, [facility] [address] [id number] [address] [place] [address], [place] [address] Oct, [facility] [address] [id number] [address] [place] [address], [place] [address] Oct, [facility] [address] [id number] [address] [place] [address], [place] [address] Sep, [facility] [address] [id number] [address] [place] [address], [place] [address] Sep, [facility] [address] [id number] [address] [place] [address], [place] [address] Sep, [facility] [address] [id number] [address] [place] [address], [place] [address] Sep, [facility] [address] [id number] [address] [place] [address], [place] [address] Aug, [facility] [address] [id number] [address] [place] [address], [place] [address] Aug, [facility] [address] [id number] [address] [place] [address] Aug, [facility] [address] [id number] [address] [place] [address], [place] [address] 17 Jul, 2013 [facility] [address] [id number] [address] [place] [address], [place] [address] 14 Jul, 2013 [facility] [address] [id number] [address] [place] [address], [place] [address] 04 Jul, 2013 [facility] [address] [id number] [address] [place] [address], [place] [address] Jun, [facility] [address] [id number] [address] [place] [address], [place] [address] Jun, [facility] [address] [id number] [address] [place] [address], [place] [address] Jun, [facility] [address] [id number] [address] [place] [address], [place] [address] Apr, [facility] [address] [id number] [address] [place] [address], [place] [address] Apr, [facility] [address] [id number] [address] [place] [address], [place] [address] March, [facility] [address] [id number] [address] [place] [address], [place] [address] March, [facility] [address] [id number] [address] [place] [address], [place] [address] March, [facility] [address] [id number] [address] [place] [address], [place] [address] March, [facility] [address] [id number] [address] [place] [address], [place] [address] Feb, [facility] [address] [id number] [address] [place] [address], [place] [address] Jan, [facility] [address] [id number] [address] [place] [address], [place] [address] Dec, [facility] [address] [id number] [address] [place] [address], [place] [address] 08 Dec, 2012 [facility] [address] [id number] [address] [place] [address], [place] [address] Dec, [facility] [address] [id number] [address] [place] [address], [place] [address] Nov, [facility] [address] [id number] [address] [place] [address], [place] [address] Oct, [facility] [address] [id number] [address] [place] [address], [place] [address] Oct, [facility] [address] [id number] [address] [place] [address], [place] [address] Sep, [facility] [address] [id number] [address] [place] [address], [place] [address] Sep, [facility] [address] [id number] [address] [place] [address], [place] [address] Sep, [facility] [address] [id number] [address] [place] [address], [place] [address] Sep, [facility] [address] [id number] [address] [place] [address], [place] [address] Sep, [facility] [address] [id number] [address] [place] [address], [place] [address] Sep, [facility] [address] [id number] [address] [place] [address], [place] [address] Sep, [facility] [address] [id number] [address] [place] [address], [place] [address] Aug, [facility] [address] [id number] [address] [place] [address], [place] [address] Aug, [facility] [address] [id number] [address] [place] [address], [place] [address] Aug, [facility] [address] [id number] [address] [place] [address], [place] [address] Aug, [facility] [address] [id number] [address] [place] [address], [place] [address] 08 Aug, 2012 [facility] [address] [id number] [address] [place] [address], [place] [address] 08 Aug, 2012 [facility] [address] [id number] [address] [place] [address], [place] [address] Aug, [facility] [address] [id number] [address] [place] [address], [place] [address] Aug, [facility] [address] [id number] [address] [place] [address], [place] [address] Jul, [facility] [address] [id number] [address] [place] [address], [place] [address] Jul, [facility] [address] [id number] [address] [place] [address], [place] [address] Jun, [facility] [address] [id number] [address] [place] [address], [place] [address] May, [facility] [address] [id number] [address] [place] [address], [place] [address] Apr, [facility] [address] [id number] [address] [place] [address], [place] [address] Apr, [facility] [address] [id number] [address] [place] [address], [place] [address] Apr, [facility] [address] [id number] [address] [place] [address], [place] [address] March, [facility] [address] [id number] [address] [place] [address], [place] [address] March, [facility] [address] [id number] [address] [place] [address], [place] [address] March, [facility] [address] [id number] [address] [place] [address], [place] [address] March, [facility] [address] [id number] [address] [place] [address], [place] [address] March, [facility] [address] [id number] [address] [place] [address], [place] [address] March, [facility] [address] [id number] [address] [place] [address], [place] [address] March, [facility] [address] [id number] [address] [place] [address], [place] [address] Jan, [facility] [address] [id number] [address] [place] [address], [place] [address] Jan, [facility] [address] [id number] [address] [place] [address], [place] [address] Jan, [facility] [address] [id number] [address] [place] [address], [place] [address] Jan, [facility] [address] [id number] [address] [place] [address], [place] [address] Jan, [facility] [address] [id number] [address] [place] [address], [place] [address] Dec, [facility] [address] [id number] [address] [place] [address], [place] [address] Dec, [facility] [address] [id number] [address] [place] [address], [place] [address] Nov, [facility] [address] [id number] [address] [place] [address], [place] [address] Nov, [facility] [address] [id number] [address] [place] [address], [place] [address] Nov, [facility] [address] [id number] [address] [place] [address], [place] [address] Nov, [facility] [address] [id number] [address] [place] [address], [place] [address] Oct, [facility] [address] [id number] [address] [place] [address], [place] [address] Oct, [facility] [address] [id number] [address] [place] [address], [place] [address] 14 Sep, 2011 [facility] [address] [id number] [address] [place] [address], [place] [address] 10 Sep, 2011 [facility] [address] [id number] [address] [place] [address], [place] [address] 10 Sep, 2011 [facility] [address] [id number] [address] [place] [address], [place] [address] 11 May, 2011 [facility] [address] [id number] [address] [place] [address], [place] [address] 20 Nov, 2010 [facility] [address] [id number] [address] [place] [address], [place] [address] 29 Oct, 2010 [facility] [address] [id number] [address] [place] [address], [place] [address] 14 Oct, 2010 [facility] [address] [id number] [address] [place] [address], [place] [address] 08 Oct, 2010 [facility] [address] [id number] [address] [place] [address], [place] [address] 15 Sep, 2010 [facility] [address] [id number] [address] [place] [address], [place] [address] 02 Sep, 2010 [facility] [address] [id number] [address] [place] [address], [place] [address] Aug, [facility] [address] [id number] [address] [place] [address], [place] [phone] March, [facility] [address] [id number] [address] [place] [address], [place] [id number] 17 Oct, 2009 [facility] [address] [id number] [address] [place] [address], [place] [id number] Oct, [facility] [address] [id number] [address] [place] [address], [place] [address] Oct, [facility] [address] [id number] [address] [place] [address], [place] [id number] Oct, [facility] [address] [id number] [address] [place] [phone] Sep, [facility] [address] [id number] [address] [place] [id number] Sep, [facility] [address] [id number] [address] [place] [id number] Sep, [facility] [address] [facility] [id number] [address] [place] [id number] Aug, [facility] [address] [id number] [address] [place] [phone] Aug, [facility] [address] [facility] [id number] [address] [place] [phone] Aug, [facility] [address] [facility] [id number] [address] [place] [phone] Jan, IMMUNIZATIONS No Known Immunizations SOCIAL HISTORY Never Assessed REASON FOR VISIT Controlled Med Refill PLAN OF CARE VITAL SIGNS MEDICATIONS Medication Instructions Dosage Frequency Start Date End Date Duration S tatus Hydrocodone-Acetaminophen 5-325 MG Orally 3 times a day 1 tablet as needed 8h May, 28 days Active RESULTS No Results PROCEDURES [...]
--- OUTSIDE RECORDS SUMMARY | 2020-06-13 16:26 | XMS REPORT ---
Author Author Jah PARKER Organization [facility] Address [address] [place] [address] Care Team Providers Care Private Tutor Name Role Phone PARKERSHAYLEE MckeonELE Unavailable PROBLEMS Type Condition ICD9-CM Code XIC06-YN Code Onset Dates Condition S tatus SNOMED Code Problem Type 2 diabetes mellitus with hyperglycemia E11.65 Active 49335332 Problem Pulmonary emphysema, unspecified emphysema type J4 3.9 Active 10812399 Problem Essential (primary) hypertension I10 Active 74684728 Problem Hypertriglyceridemia E78.1 Active 187187272 Problem Major depressive disorder, recurrent episode, moderate F33.1 Active 270226513 Problem Recurrent major depressive disorder, in partial remission F33.41 Active 70005854 Problem Current non-adherence to medical treatment Z91.19 Active 8386903 Problem Anxiety disorder, unspecified type F41.9 Active 297686620 Problem Chronic fatigue R53.82 Active 8422 9001 Problem Chronic pain G89.29 Active 3748162 1 Problem Neuropathy G62.9 Active 439398770 Problem Thrombocytosis D47.3 Active 51068 09 Problem Mixed hyperlipidemia E78.2 Active 149461781 Problem Gastroesophageal reflux disease with esophagitis K 21.0 Active 126504797 Problem Hypothyroid E03.9 Active 31648454 Problem Irritable bowel syndrome with diarrhea K58.0 Active 836996044 Problem Overactive bladder N32.81 Active 2 16248596 Problem MCC current use of insulin Z79.4 Active 595076141 ALLERGIES No Information ENCOUNTERS Encounter Location Date Diagnosis [facility] [address] [facility] [id number] [address] [place] [address] Jun, Type 2 diabetes mellitus wit h hyperglycemia E11.65 ; Neuropathy G62.9 ; Recurrent major depressive disorder, in partial remission F33.41 ; Chronic pain G89.[address] [facility] [address] [facility] [id number] [address] [place] [address] Jun, Hypothyroid E03.9 [facility] [address] [id number] [address] [place] [address] Jun, Major depressive disorder, r ecurrent episode, moderate F33.1 and Anxiety disorder, unspecified type F41.9 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 ; Recurrent major depressive disorder, in partial remission F33.41 ; Hypothyroid E03.9 ; Candidal dermatitis B37.2 and Weakness generalized R53.1 [place] [address] [facility] [id number] [address] [place] [address] May, [place] [address] [id number] [address] [place] [address] May, [place] [address] [id number] [address] [place] [address] May, [place] [address] [facility] [id number] [address] [place] [address] May, Generalized abdominal pain R 10.84 and Candidal dermatitis B37.2 [place] [address] [facility] [id number] [address] [place] [address] May, [place] [address] [id number] [address] [place] [address] May, [place] [address] [facility] [id number] [address] [place] [address] May, Nodular radiologic density R 93.8 ; Weight loss, unintentional R63.4 and Pulmonary emphysema, unspecified emphysema type J43.9 [place] [address] [facility] [id number] [address] [place] [address] May, Chronic pain G89.29 [facility] [address] [id number] [address] [place] [address] 09 May, 2018 Syncope and collapse R55 ; C hronic fatigue R53.[address] lung screening R91.8 [facility] [address] [id number] [address] [place] [address] May, [facility] [address] [id number] [address] [place] [address] Apr, Chronic fatigue R53.82 ; Abn ormal chest CT R93.8 ; Elevated erythrocyte sedimentation rate R70.0 ; Hypothyroid E03.9 and Recurrent major depressive disorder, in partial remission F33.41 [facility] [address] [id number] [address] [place] [address] Apr, Hypothyroid E03.9 [facility] [address] [id number] [address] [place] [address] Apr, Depression F32.9 [facility] [address] [id number] [address] [place] [address] Apr, [facility] [address] [id number] [address] [place] [address] March, [facility] [address] [facility] [id number] [address] [place] [address] March, Hypothyroid E03.9 [facility] [address] [facility] [id number] [address] [place] [address] March, Diabetes mellitus E11.[address] [facility] [address] [id number] [address] [place] [address] March, Diabetes mellitus E11.9 [facility] [address] [facility] [id number] [address] [place] [address] March, Hypothyroid E03.9 and Elevat ed liver enzymes R74.8 [facility] [address] [facility] [id number] [address] [place] [address] March, Type 2 diabetes mellitus wit h [...] major depressive disorder, in partial remission F33.41 [place] [id number] [place] [address] Feb, Chronic pain G89.29 [place] [id number] [place] [address] Feb, Type 2 diabetes mellitus wit h hyperglycemia E11.65 and Skin lesion of scalp L98.9 [place] [id number] [address] [place] [address] Feb, [place] [address] [address] Jan, Type 2 diabetes mellitus wit h hyperglycemia E11.65 ; 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 ; Essential (primary) hypertension I10 ; Pulmonary emphysema, unspecified emphysema type J43.9 ; Chronic pain G89.29 ; Controlled substance agreement signed Z79.899 ; Hypothyroid E03.9 ; Neuropathy G62.9 ; Gastroesophageal reflux disease with esophagitis K21.0 ; Overactive bladder N32.81 ; Depression F32.9 and Irritable bowel syndrome with diarrhea K58.0 [place] [address] [place] [id number] [address] [place] [address] Jan, [place] [address] [place] [id number] [address] [place] [address] Jan, Controlled substance agreeme nt signed Z79.899 [place] [address] [place] [id number] [address] [place] [address] Dec, Type 2 diabetes mellitus wit h hyperglycemia E11.65 ; Controlled substance agreement signed Z79.899 ; 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 ; Essential (primary) hypertension I10 ; Hypothyroid E03.9 ; Neuropathy G62.9 ; Depression F32.9 ; Mixed hyperlipidemia E78.2 ; Irritable bowel syndrome with diarrhea K58.0 ; Gastroesophageal reflux disease with esophagitis K21.0 ; Thrombocytosis D47.3 ; Current non-adherence to medical treatment Z91.19 and Overweight (BMI 25.0-29.9) E66.3 [place] [address] [facility] [id number] [address] [place] [address] 02 Dec, 2017 Controlled substance agreeme nt signed Z79.899 [place] [address] [place] [id number] [address] [place] [address] Nov, Type 2 diabetes mellitus wit h hyperglycemia E11.65 and Current non- adherence to medical treatment Z91.19 [place] [address] [facility] [id number] [address] [place] [address] Nov, [place] [address] [facility] [id number] [address] [place] [address] Nov, Chronic pain G89.29 [place] [address] [place] [id number] [address] [place] [address] Nov, [place] [address] [place] [id number] [address] [place] [address] Nov, Hypothyroid E03.9 [place] [address] [facility] [id number] [address] [place] [address] Nov, Hypothyroid E03.9 [place] [address] [facility] [id number] [address] [place] [address] Nov, Pulmonary emphysema, unspeci fied emphysema type J43.9 and Irritable bowel syndrome with diarrhea K58.0 [place] [address] [facility] [id number] [address] [place] [address] Oct, [place] [address] [place] [id number] [address] [place] [address] Oct, [place] [address] [place] [address] Oct, [place] [address] [facility] [id number] [address] [place] [address] Oct, [place] [address] [place] [id number] [address] [place] [address] Oct, Chronic pain G89.29 [place] [address] [address] Oct, Diabetes mellitus E11.9 ; De pression F32.9 ; Mixed hyperlipidemia E78.2 ; Hypotension, unspecified hypotension type I95.9 ; Pulmonary emphysema, unspecified emphysema type J43.9 and Weight loss, unintentional R63.4 [place] [address] [address] Oct, Chronic pain G89.29 [place] [address] [address] Sep, Chronic pain G89.29 [place] [address] [address] Sep, Hypothyroid E03.9 and Diabet es mellitus E11.9 [place] [address] [address] Aug, Type 2 diabetes mellitus wit h hyperglycemia E11.65 ; 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 [address] [facility] [id number] [address] [place] [address] Jun, [facility] [address] [facility] [id number] [address] [place] [address] Jun, [facility] [address] [facility] [id number] [address] [place] [address] Jun, Hypothyroid E03.9 [facility] [address] [facility] [id number] [address] [place] [address] Jun, Diabetes mellitus E11.9 ; Hy pothyroid E03.9 ; Neuropathy G62.9 ; Chronic pain G89.29 and Neck mass R22.1 [facility] [address] [facility] [id number] [address] [place] [address] Apr, [facility] [address] [facility] [id number] [address] [place] [address] Apr, Acute cystitis without hemat uria N30.00 [facility] [address] [facility] [id number] [address] [place] [address] March, [facility] [address] [facility] [id number] [address] [place] [address] March, [facility] [address] [facility] [id number] [address] [place] [address] March, Near syncope R55 [facility] [address] [facility] [id number] [address] [place] [address] Feb, [facility] [address] [facility] [id number] [address] [place] [address] Feb, Chronic pain G89.29 [facility] [address] [facility] [id number] [address] [place] [address] Feb, [facility] [address] [facility] [id number] [address] [place] [address] Feb, [facility] [address] [place] [id number] [address] [place] [address] Jan, Chronic pain G89.29 [facility] [address] [address] Jan, [facility] [address] [address] 16 Jan, 2017 [facility] [address] [address] 14 Jan, 2017 Diabetes mellitus E11.9 ; Hy pothyroid E03.9 ; GERD (gastroesophageal reflux disease) K21.9 ; Insomnia G47.00 ; Functional diarrhea K59.1 ; Neuropathy G62.9 ; Depression F32.9 ; Chronic pain G89.29 ; Irritable bowel syndrome with diarrhea K58.0 ; Overactive bladder N32.81 ; Mixed hyperlipidemia E78.[address] [facility] [address] [address] Dec, [facility] [address] [place] [id number] [address] [place] [address] Dec, [facility] [address] [address] Dec, [facility] [address] [place] [id number] [address] [place] [address] Dec, [facility] [address] [place] [id number] [address] [place] [address] Dec, Chronic pain G89.29 [facility] [address] [place] [id number] [address] [place] [address] Dec, [facility] [address] [place] [id number] [address] [place] [address] Dec, [facility] [address] [place] [id number] [address] [place] [address] Dec, Type 2 diabetes mellitus wit h foot ulcer E11.621 [place] [address] [place] [id number] [address] [place] [address] 17 Dec, 2016 Type 2 diabetes mellitus wit h foot ulcer E11.621 [place] [address] [place] [id number] [place] [address] 14 Dec, 2016 HTN (hypertension) I10 ; Dep ression F32.9 ; Type 2 diabetes mellitus with foot ulcer E11.621 ; Functional diarrhea K59.1 ; Irritable bowel syndrome with diarrhea K58.0 ; Chronic pain G89.29 ; Insomnia G47.00 ; Overactive bladder N32.81 ; Mixed hyperlipidemia E78.2 ; Gastroesophageal reflux disease with esophagitis K21.0 and Acquired hypothyroidism E03.9 [place] [address] [address] Nov, [place] [address] [address] Oct, [place] [address] [address] Oct, [place] [address] [address] Oct, [place] [address] [address] Sep, Functional diarrhea K59.1 ; HTN (hypertension) I10 ; Diabetes mellitus E11.9 ; Depression F32.9 ; Overactive bladder N32.81 ; Mixed hyperlipidemia E78.2 ; Gastroesophageal reflux disease without esophagitis K21.9 ; Chronic pain G89.29 ; Insomnia G47.00 and Acquired hypothyroidism E03.9 [place] [address] [address] Sep, [place] [address] [address] Aug, Encounter for immunization Z 23 [place] [address] [address] Aug, [place] [address] [address] Jul, [place] [address] [address] Jun, Type 2 diabetes mellitus wit hout complications E11.9 ; HTN (hypertension) I10 ; Hypothyroid E03.9 ; Neuropathy G62.9 ; Depression F32.9 ; Chronic pain G89.29 ; GERD (gastroesophageal reflux disease) K21.9 ; Insomnia G47.00 ; Overactive bladder N32.81 ; Mixed hyperlipidemia E78.2 ; Diarrhea of infectious origin A09 and Environmental allergies Z91.09 [place] [address] [address] Apr, [place] [address] [address] March, Hypothyroidism, unspecified E03.9 and Mixed hyperlipidemia E78.2 [place] [address] [address] March, Diabetes mellitus E11.9 ; HT N (hypertension) I10 ; Hypothyroid E03.9 ; Depression F32.9 ; Overactive bladder N32.81 ; Other chronic pain G89.29 ; Lumbago with sciatica, unspecified side M54.40 ; Environmental allergies Z91.09 and Gastroesophageal reflux disease, esophagitis presence not specified K21.9 [place] [address] [address] March, [place] [address] [address] Jan, HTN (hypertension) I10 ; Hyp othyroid E03.9 ; Neuropathy G62.9 ; Diabetes mellitus E11.9 ; Chronic pain G89.29 ; GERD (gastroesophageal reflux disease) K21.9 ; Overactive bladder N32.81 and Depression F32.9 [place] [address] [address] Dec, Ear pain, left H92.02 ; HTN (hypertension) I10 ; Hypothyroid E03.9 ; Neuropathy G62.9 ; Diabetes mellitus E11.9 ; Depression F32.9 ; GERD (gastroesophageal reflux disease) K21.9 ; Insomnia G47.00 and Overactive bladder N32.81 [place] [address] [place] [address] Nov, Overactive bladder N32.81 an d Chronic pain G89.29 [place] [address] [place] [id number] [place] [address] Nov, Kidney failure N19 [place] [address] [place] [id number] [place] [address] Nov, [place] [address] [place] [id number] [address] [place] [address] Nov, [place] [address] [address] Nov, Diabetes mellitus E11.9 ; De pression F32.9 ; Chronic pain G89.29 ; GERD (gastroesophageal reflux disease) K21.9 ; Insomnia G47.00 ; HTN (hypertension) I10 ; Hypothyroid E03.9 ; COPD (chronic obstructive pulmonary disease) J44.9 ; Bladder incontinence R32 and Incontinence R32 [place] [address] [place] [address] Sep, Type 2 diabetes mellitus wit h foot ulcer E11.621 and Chromosomal abnormality, 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 [place] [address] [place] [id number] [address] [place] [address] Sep, [place] [address] [place] [id number] [place] [address] Aug, [place] [address] [place] [id number] [address] [place] [address] Aug, [place] [address] [place] [id number] [place] [address] Aug, HTN (hypertension) I10 ; Enc ounter for immunization Z23 ; Hypothyroid E03.9 ; Neuropathy G62.9 ; Diabetes mellitus E11.9 ; Depression F32.9 ; Chronic pain G89.29 ; GERD (gastroesophageal reflux disease) K21.9 ; Insomnia G47.00 and COPD (chronic obstructive pulmonary disease) J44.[address] [address] Jun, [address] [address] Jun, [address] [address] May, Essential hypertension, ivis gn 401.1 ; Unspecified hypothyroidism 244.9 ; Insomnia, unspecified 780.52 ; Shortness of breath 786.05 ; Depression 311 ; COPD (chronic obstructive pulmonary disease) 496 ; GERD (gastroesophageal reflux disease) 530.81 and Diabetes 1.5, 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 [address] May, [address] [address] May, [address] [address] May, Shortness of breath 786.05 ; Essential hypertension, benign 401.1 ; Diabetes mellitus 250.00 ; Hyperlipidemia 272.4 ; Hypothyroid 244.9 ; Insomnia 780.52 and Cough 786.[address] [address] Apr, [address] [address] March, Shortness of breath 786.05 ; Nausea with vomiting 787.01 ; Essential hypertension, benign 401.1 ; Diabetes mellitus 250.00 ; Hyperlipidemia 272.4 and Hypothyroid 244.[address] [address] 14 Feb, 2015 [facility] [address] [id number] [address] [place] [address], [place] [address] Feb, [facility] [address] [id number] [address] [place] [address], [place] [address] Jan, [facility] [address] [id number] [address] [place] [address], [place] [address] Jan, [facility] [place] [facility] [address] [id number] [address] [place] [address], [place] [address] Jan, [facility] [address] [id number] [address] [place] [address], [place] [address] Jan, [facility] [address] [id number] [address] [place] [address], [place] [address] Jan, [facility] [address] [id number] [address] [place] [address], [place] [address] Jan, [facility] [address] [id number] [address] [place] [address], [place] [address] Jan, [facility] [address] [id number] [address] [place] [address], [place] [address] Jan, [facility] [address] [id number] [address] [place] [address], [place] [address] Jan, [facility] [address] [id number] [address] [place] [address], [place] [address] Jan, [facility] [place] [facility] [address] [id number] [address] [place] [address], [place] [address] Dec, [facility] [place] [facility] [address] [id number] [address] [place] [address], [place] [address] Dec, [facility] [place] [facility] [address] [id number] [address] [place] [address], [place] [address] Dec, [facility] [place] [facility] [address] [id number] [address] [place] [address], [place] [address] Dec, [facility] [place] [facility] [address] [id number] [address] [place] [address], [place] [address] Dec, 2014 [facility] [address] [id number] [address] [place] [address], [place] [address] Dec, 2014 [facility] [address] [id number] [address] [place] [address], [place] [address] Dec, 2014 [facility] [place] [facility] [address] [id number] [address] [place] [address], [place] [address] Dec, 2014 [facility] [address] [id number] [address] [place] [address], [place] [address] Dec, 2014 [facility] [address] [id number] [address] [place] [address], [place] [address] Dec, 2014 [facility] [address] [id number] [address] [place] [address], [place] [address] Oct, [facility] [address] [id number] [address] [place] [address], [place] [address] Oct, [facility] [address] [id number] [address] [place] [address], [place] [address] Oct, [facility] [address] [id number] [address] [place] [address], [place] [address] Oct, [facility] [address] [id number] [address] [place] [id number] Oct, [facility] [address] [id number] [address] [place] [id number] Oct, [facility] [address] [id number] [address] [place] [address], [place] [address] Oct, [facility] [address] [id number] [address] [place] [address], [place] [address] Oct, [facility] [address] [id number] [address] [place] [id number] Oct, [facility] [address] [id number] [address] [place] [address], [place] [address] Oct, [facility] [address] [id number] [address] [place] [address], [place] [address] Oct, [facility] [address] [id number] [address] [place] [address], [place] [address] Oct, [facility] [address] [id number] [address] [place] [address], [place] [address] Oct, [facility] [address] [id number] [address] [place] [address], [place] [address] Oct, [facility] [address] [id number] [address] [place] [address], [place] [address] Sep, [facility] [address] [id number] [address] [place] [address], [place] [address] Sep, [facility] [address] [id number] [address] [place] [address], [place] [address] Sep, [facility] [address] [id number] [address] [place] [address], [place] [address] Sep, [facility] [address] [id number] [address] [place] [address], [place] [address] Sep, [facility] [address] [id number] [address] [place] [address], [place] [address] Sep, [facility] [facility] [address] [id number] [address] [place] [address], [place] [address] Sep, [facility] [address] [id number] [address] [place] [address], [place] [address] Sep, [facility] [address] [id number] [address] [place] [address], [place] [address] Sep, [facility] [address] [id number] [address] [place] [address], [place] [address] Aug, [facility] [address] [id number] [address] [place] [address], [place] [address] Aug, [facility] [address] [id number] [address] [place] [address], [place] [address] 17 Aug, 2013 [facility] [address] [id number] [address] [place] [address], [place] [address] 17 Aug, 2014 [facility] [address] [id number] [address] [place] [address], [place] [address] 16 Aug, 2013 [facility] [address] [id number] [address] [place] [address], [place] [address] Aug, [facility] [address] [id number] [address] [place] [address], [place] [address] Aug, [facility] [address] [id number] [address] [place] [address], [place] [address] Aug, [facility] [address] [id number] [address] [place] [address], [place] [address] Aug, [facility] [address] [id number] [address] [place] [address], [place] [address] 29 Jul, 2013 [facility] [address] [id number] [address] [place] [address], [place] [address] 29 Sep, 2013 [facility] [address] [id number] [address] [place] [address], [place] [address] 25 Sep, 2013 [facility] [address] [id number] [address] [place] [address], [place] [address] 25 Sep, 2013 [facility] [address] [id number] [address] [place] [address], [place] [address] 25 Sep, 2013 [facility] [address] [id number] [address] [place] [address], [place] [address] 25 Sep, 2013 [facility] [address] [id number] [address] [place] [address], [place] [address] 25 Jul, 2013 [facility] [address] [id number] [address] [place] [address], [place] [address] 25 Jul, 2013 [facility] [address] [id number] [address] [place] [address], [place] [address] Jul, [facility] [address] [id number] [facility] [place] [place] [address] Jul, [facility] [address] [id number] [facility] [place] [place] [address] Jun, [facility] [address] [id number] [facility] [place] [place] [address] Jun, [facility] [address] [id number] [address] [place] [address], [place] [address] Jun, [facility] [address] [id number] [facility] [place] [place] [address] Jun, [facility] [address] [id number] [address] [place] [address], [place] [address] Jun, [facility] [address] [id number] [address] [place] [address], [place] [address] Jun, [facility] [address] [id number] [address] [place] [address], [place] [address] Jun, [facility] [address] [id number] [address] [place] [address], [place] [address] Jun, [facility] [address] [id number] [address] [place] [address], [place] [address] Jun, [facility] [address] [id number] [address] [place] [address], [place] [address] Jun, [facility] [address] [id number] [address] [place] [address], [place] [address] Jun, [facility] [address] [id number] [address] [place] [address], [place] [address] Jun, [facility] [address] [id number] [address] [place] [address], [place] [address] May, [facility] [address] [id number] [address] [place] [address], [place] [address] May, [facility] [address] [id number] [facility] [place] [place] [address] May, [facility] [address] [id number] [address] [place] [address], [place] [address] May, [facility] [address] [id number] [address] [place] [address], [place] [address] May, [facility] [address] [id number] [address] [place] [address], [place] [address] May, [facility] [address] [id number] [address] [place] [address], [place] [address] March, [facility] [address] [id number] [address] [place] [address], [place] [address] March, [facility] [address] [id number] [address] [place] [address], [place] [address] March, [facility] [address] [id number] [address] [place] [address], [place] [address] March, [facility] [address] [id number] [address] [place] [address], [place] [address] March, [facility] [address] [id number] [address] [place] [address], [place] [address] March, [facility] [address] [id number] [address] [place] [address], [place] [address] Feb, [facility] [address] [id number] [address] [place] [address], [place] [address] Feb, [facility] [address] [id number] [address] [place] [address], [place] [address] Feb, [facility] [address] [id number] [address] [place] [address], [place] [address] Feb, [facility] [address] [id number] [address] [place] [address], [place] [address] Jan, [facility] [address] [id number] [address] [place] [address], [place] [address] Jan, [facility] [address] [id number] [facility] [place] [address] Jan, [facility] [address] [id number] [facility] [place] [address] Jan, [facility] [address] [id number] [facility] [place] [address] Jan, [facility] [address] [id number] [address] [place] [address], [place] [address] Jan, [facility] [address] [id number] [address] [place] [address], [place] [address] Jan, [facility] [address] [id number] [address] [place] [address], [place] [address] Jan, [facility] [address] [id number] [address] [place] [address], [place] [address] Jan, [facility] [address] [id number] [address] [place] [address], [place] [address] Jan, [facility] [address] [id number] [address] [place] [address], [place] [address] Jan, [facility] [address] [id number] [address] [place] [address], [place] [address] Jan, [facility] [address] [id number] [address] [place] [address], [place] [address] Dec, [facility] [address] [id number] [address] [place] [address], [place] [address] Dec, [facility] [address] [id number] [address] [place] [address], [place] [address] Dec, [facility] [address] [id number] [address] [place] [address], [place] [address] Dec, [facility] [address] [id number] [address] [place] [address], [place] [address] Dec, [facility] [address] [id number] [address] [place] [address] Dec, [facility] [address] [id number] [address] [place] [address], [place] [address] Nov, [facility] [address] [id number] [address] [place] [address], [place] [address] Nov, [facility] [address] [id number] [address] [place] [address], [place] [address] Oct, [facility] [address] [id number] [address] [place] [address], [place] [address] Oct, [facility] [address] [id number] [address] [place] [address], [place] [address] Oct, [facility] [address] [id number] [address] [place] [address], [place] [address] Oct, [facility] [address] [id number] [address] [place] [address], [place] [address] Oct, [facility] [address] [id number] [address] [place] [address], [place] [address] Oct, [facility] [address] [id number] [address] [place] [address], [place] [address] Sep, [facility] [address] [id number] [address] [place] [address], [place] [address] Sep, [facility] [address] [id number] [address] [place] [address], [place] [address] Sep, [facility] [address] [id number] [address] [place] [address], [place] [address] Sep, [facility] [address] [id number] [address] [place] [address], [place] [address] Aug, [facility] [address] [id number] [address] [place] [address], [place] [address] Aug, [facility] [address] [id number] [address] [place] [address] Aug, [facility] [address] [id number] [address] [place] [address], [place] [address] 17 Jul, 2013 [facility] [address] [id number] [address] [place] [address], [place] [address] 14 Jul, 2013 [facility] [address] [id number] [address] [place] [address], [place] [address] 04 Jul, 2013 [facility] [address] [id number] [address] [place] [address], [place] [address] Jun, [facility] [address] [id number] [address] [place] [address], [place] [address] Jun, [facility] [address] [id number] [address] [place] [address], [place] [address] Jun, [facility] [address] [id number] [address] [place] [address], [place] [address] Apr, [facility] [address] [id number] [address] [place] [address], [place] [address] Apr, [facility] [address] [id number] [address] [place] [address], [place] [address] March, [facility] [address] [id number] [address] [place] [address], [place] [address] March, [facility] [address] [id number] [address] [place] [address], [place] [address] March, [facility] [address] [id number] [address] [place] [address], [place] [address] March, [facility] [address] [id number] [address] [place] [address], [place] [address] Feb, [facility] [address] [id number] [address] [place] [address], [place] [address] Jan, [facility] [address] [id number] [address] [place] [address], [place] [address] Dec, [facility] [address] [id number] [address] [place] [address], [place] [address] 08 Dec, 2012 [facility] [address] [id number] [address] [place] [address], [place] [address] Dec, [facility] [address] [id number] [address] [place] [address], [place] [address] Nov, [facility] [address] [id number] [address] [place] [address], [place] [address] Oct, [facility] [address] [id number] [address] [place] [address], [place] [address] Oct, [facility] [address] [id number] [address] [place] [address], [place] [address] Sep, [facility] [address] [id number] [address] [place] [address], [place] [address] Sep, [facility] [address] [id number] [address] [place] [address], [place] [address] Sep, [facility] [address] [id number] [address] [place] [address], [place] [address] Sep, [facility] [address] [id number] [address] [place] [address], [place] [address] Sep, [facility] [address] [id number] [address] [place] [address], [place] [address] Sep, [facility] [address] [id number] [address] [place] [address], [place] [address] Sep, [facility] [address] [id number] [address] [place] [address], [place] [address] Aug, [facility] [address] [id number] [address] [place] [address], [place] [address] Aug, [facility] [address] [id number] [address] [place] [address], [place] [address] Aug, [facility] [address] [id number] [address] [place] [address], [place] [address] Aug, [facility] [address] [id number] [address] [place] [address], [place] [address] 08 Aug, 2012 [facility] [address] [id number] [address] [place] [address], [place] [address] 08 Aug, 2012 [facility] [address] [id number] [address] [place] [address], [place] [address] Aug, [facility] [address] [id number] [address] [place] [address], [place] [address] Aug, [facility] [address] [id number] [address] [place] [address], [place] [address] Jul, [facility] [address] [id number] [address] [place] [address], [place] [address] Jul, [facility] [address] [id number] [address] [place] [address], [place] [address] Jun, [facility] [address] [id number] [address] [place] [address], [place] [address] May, [facility] [address] [id number] [address] [place] [address], [place] [address] Apr, [facility] [address] [id number] [address] [place] [address], [place] [address] Apr, [facility] [address] [id number] [address] [place] [address], [place] [address] Apr, [facility] [address] [id number] [address] [place] [address], [place] [address] March, [facility] [address] [id number] [address] [place] [address], [place] [address] March, [facility] [address] [id number] [address] [place] [address], [place] [address] March, [facility] [address] [id number] [address] [place] [address], [place] [address] March, [facility] [address] [id number] [address] [place] [address], [place] [address] March, [facility] [address] [id number] [address] [place] [address], [place] [address] March, [facility] [address] [id number] [address] [place] [address], [place] [address] March, [facility] [address] [id number] [address] [place] [address], [place] [address] Jan, [facility] [address] [id number] [address] [place] [address], [place] [address] Jan, [facility] [address] [id number] [address] [place] [address], [place] [address] Jan, [facility] [address] [id number] [address] [place] [address], [place] [address] Jan, [facility] [address] [id number] [address] [place] [address], [place] [address] Jan, [facility] [address] [id number] [address] [place] [address], [place] [address] Dec, [facility] [address] [id number] [address] [place] [address], [place] [address] Dec, [facility] [address] [id number] [address] [place] [address], [place] [address] Nov, [facility] [address] [id number] [address] [place] [address], [place] [address] Nov, [facility] [address] [id number] [address] [place] [address], [place] [address] Nov, [facility] [address] [id number] [address] [place] [address], [place] [address] Nov, [facility] [address] [id number] [address] [place] [address], [place] [address] Oct, [facility] [address] [id number] [address] [place] [address], [place] [address] Oct, [facility] [address] [id number] [address] [place] [address], [place] [address] 14 Sep, 2011 [facility] [address] [id number] [address] [place] [address], [place] [address] 10 Sep, 2011 [facility] [address] [id number] [address] [place] [address], [place] [address] 10 Sep, 2011 [facility] [address] [id number] [address] [place] [address], [place] [address] 11 May, 2011 [facility] [address] [id number] [address] [place] [address], [place] [address] 20 Nov, 2010 [facility] [address] [id number] [address] [place] [address], [place] [address] 29 Oct, 2010 [facility] [address] [id number] [address] [place] [address], [place] [address] 14 Oct, 2010 [facility] [address] [id number] [address] [place] [address], [place] [address] 08 Oct, 2010 [facility] [address] [id number] [address] [place] [address], [place] [address] 15 Sep, 2010 [facility] [address] [id number] [address] [place] [address], [place] [id number] 02 Sep, 2010 [facility] [address] [id number] [address] [place] [address], [place] [id number] Aug, [facility] [address] [id number] [address] [place] [address], [place] [phone] March, [facility] [address] [id number] [address] [place] [address], [place] [id number] 17 Oct, 2009 [facility] [address] [id number] [address] [place] [address], [place] [id number] Oct, [facility] [address] [id number] [address] [place] [address], [place] [id number] Oct, [facility] [address] [id number] [address] [place] [address], [place] [address] Oct, [facility] [address] [id number] [address] [place] [id number] Sep, [facility] [address] [id number] [address] [place] [id number] Sep, [facility] [address] [id number] [address] [place] [id number] Sep, [facility] [address] [facility] [id number] [address] [place] [id number] Aug, [facility] [address] [id number] [address] [place] [id number] Aug, [facility] [address] [facility] [id number] [address] [place] [id number] Aug, [facility] [address] [facility] [id number] [address] [place] [id number] Jan, IMMUNIZATIONS No Known Immunizations SOCIAL HISTORY Never Assessed REASON FOR VISIT Lab (walk-in) PLAN OF CARE VITAL SIGNS MEDICATIONS No Known Medications RESULTS Name Result Date Reference Range TSH 2018-05-07 TSH 7.60 0.40-4.50 PROCEDURES Procedure Date Ordered Result Body Site LAB NOT BILLED BY [facility] May 07, 2018 INSTRUCTIONS MEDICATIONS ADMINISTERED No Known Medications [...]
--- OUTSIDE RECORDS SUMMARY | 2020-06-13 16:26 | XMS REPORT ---
Author Author Jah PARKER Organization [facility] Address [address] [place] [address] Care Team Providers Care Supervisor Heat Treating Name Role Phone PARKERSHAYLEE MckeonELE Unavailable PROBLEMS Type Condition ICD9-CM Code [id number] Code Onset Dates Condition S tatus SNOMED Code Problem Type 2 diabetes mellitus with hyperglycemia E11.65 Active 17914909 Problem Pulmonary emphysema, unspecified emphysema type J4 3.9 Active 99952985 Problem Essential (primary) hypertension I10 Active 84274646 Problem Hypertriglyceridemia E78.1 Active 968369304 Problem Major depressive disorder, recurrent episode, moderate F33.1 Active 610270119 Problem Recurrent major depressive disorder, in partial remission F33.41 Active 54245805 Problem Current non-adherence to medical treatment Z91.19 Active 6925542 Problem Anxiety disorder, unspecified type F41.9 Active 848911464 Problem Chronic fatigue R53.82 Active 8422 9001 Problem Chronic pain G89.29 Active 9158052 1 Problem Neuropathy G62.9 Active 021664172 Problem Thrombocytosis D47.3 Active 92272 09 Problem Mixed hyperlipidemia E78.2 Active 845758235 Problem Gastroesophageal reflux disease with esophagitis K 21.0 Active 700211813 Problem Hypothyroid E03.9 Active 19644950 Problem Irritable bowel syndrome with diarrhea K58.0 Active 139611625 Problem Overactive bladder N32.81 Active 2 38655687 Problem group home current use of insulin Z79.4 Active 308175504 ALLERGIES No Information ENCOUNTERS Encounter Location Date Diagnosis [facility] [address] [facility] [id number] [address] [place] [phone] Jun, Type 2 diabetes mellitus wit h hyperglycemia E11.65 ; Neuropathy G62.9 ; Recurrent major depressive disorder, in partial remission F33.41 ; Chronic pain G89.29 and Hypertriglyceridemia E78.1 [facility] [address] [facility] [id number] [address] [place] [id number] Jun, Hypothyroid E03.9 [facility] [address] [id number] [address] [place] [address] Jun, Major depressive disorder, r ecurrent episode, moderate F33.1 and Anxiety disorder, unspecified type F41.9 [facility] [address] [id number] [address] [place] [id number] Jun, [place] [address] [facility] [id number] [address] [place] [address] Jun, Type 2 diabetes mellitus wit h hyperglycemia E11.65 ; 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 ; Recurrent major depressive disorder, in partial remission F33.41 ; Hypothyroid E03.9 ; Candidal dermatitis B37.2 and Weakness generalized R53.1 [place] [address] [facility] [id number] [address] [place] [phone] May, [place] [address] [id number] [address] [place] [address] May, [place] [address] [id number] [address] [place] [address] May, [place] [address] [facility] [id number] [address] [place] [address] May, Generalized abdominal pain R 10.84 and Candidal dermatitis B37.2 [place] [address] [facility] [id number] [address] [place] [id number] May, [place] [address] [id number] [address] [place] [phone] May, [place] [address] [facility] [id number] [address] [place] [address] May, Nodular radiologic density R 93.8 ; Weight loss, unintentional R63.4 and Pulmonary emphysema, unspecified emphysema type J43.9 [place] [address] [facility] [id number] [address] [place] [address] May, Chronic pain G89.29 [facility] [address] [id number] [address] [place] [id number] 09 May, 2018 Syncope and collapse R55 ; C hronic fatigue R53.[address] lung screening R91.8 [facility] [address] [id number] [address] [place] [address] May, [facility] [address] [id number] [address] [place] [address] Apr, Chronic fatigue R53.82 ; Abn ormal chest CT R93.8 ; Elevated erythrocyte sedimentation rate R70.0 ; Hypothyroid E03.9 and Recurrent major depressive disorder, in partial remission F33.41 [facility] [address] [id number] [address] [place] [address] Apr, Hypothyroid E03.9 [facility] [address] [id number] [address] [place] [address] Apr, Depression F32.9 [facility] [address] [id number] [address] [place] [phone] Apr, [facility] [address] [id number] [address] [place] [phone] March, [facility] [address] [facility] [id number] [address] [place] [address] March, Hypothyroid E03.9 [facility] [address] [facility] [id number] [address] [place] [address] March, Diabetes mellitus E11.9 and Hypothyroid E03.9 [facility] [address] [id number] [address] [place] [address] March, Diabetes mellitus E11.9 [facility] [address] [facility] [id number] [address] [place] [address] March, Hypothyroid E03.9 and Elevat ed liver enzymes R74.8 [facility] [address] [facility] [id number] [address] [place] [address] March, Type 2 diabetes mellitus wit h [...] major depressive disorder, in partial remission F33.41 [place] [id number] [place] [address] Feb, Chronic pain G89.29 [place] [id number] [place] [address] Feb, Type 2 diabetes mellitus wit h hyperglycemia E11.65 and Skin lesion of scalp L98.9 [place] [id number] [address] [place] [address] Feb, [place] [address] [address] Jan, Type 2 diabetes mellitus wit h hyperglycemia E11.65 ; 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 ; Essential (primary) hypertension I10 ; Pulmonary emphysema, unspecified emphysema type J43.9 ; Chronic pain G89.29 ; Controlled substance agreement signed Z79.899 ; Hypothyroid E03.9 ; Neuropathy G62.9 ; Gastroesophageal reflux disease with esophagitis K21.0 ; Overactive bladder N32.81 ; Depression F32.9 and Irritable bowel syndrome with diarrhea K58.0 [place] [address] [place] [id number] [address] [place] [address] Jan, [place] [address] [place] [id number] [address] [place] [address] Jan, Controlled substance agreeme nt signed Z79.899 [place] [address] [place] [id number] [address] [place] [address] Dec, Type 2 diabetes mellitus wit h hyperglycemia E11.65 ; Controlled substance agreement signed Z79.899 ; 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 ; Essential (primary) hypertension I10 ; Hypothyroid E03.9 ; Neuropathy G62.9 ; Depression F32.9 ; Mixed hyperlipidemia E78.2 ; Irritable bowel syndrome with diarrhea K58.0 ; Gastroesophageal reflux disease with esophagitis K21.0 ; Thrombocytosis D47.3 ; Current non-adherence to medical treatment Z91.19 and Overweight (BMI 25.0-29.9) E66.3 [place] [address] [facility] [id number] [address] [place] [address] 02 Dec, 2017 Controlled substance agreeme nt signed Z79.899 [place] [address] [place] [id number] [address] [place] [address] Nov, Type 2 diabetes mellitus wit h hyperglycemia E11.65 and Current non- adherence to medical treatment Z91.19 [place] [address] [facility] [id number] [address] [place] [address] Nov, [place] [address] [facility] [id number] [address] [place] [address] Nov, Chronic pain G89.29 [place] [address] [place] [id number] [address] [place] [address] Nov, [place] [address] [place] [id number] [address] [place] [address] Nov, Hypothyroid E03.9 [place] [address] [facility] [id number] [address] [place] [address] Nov, Hypothyroid E03.9 [place] [address] [facility] [id number] [address] [place] [address] Nov, Pulmonary emphysema, unspeci fied emphysema type J43.9 and Irritable bowel syndrome with diarrhea K58.0 [place] [address] [facility] [id number] [address] [place] [address] Oct, [place] [address] [place] [id number] [address] [place] [address] Oct, [place] [address] [place] [address] Oct, [place] [address] [facility] [id number] [address] [place] [address] Oct, [place] [address] [place] [id number] [address] [place] [address] Oct, Chronic pain G89.29 [place] [address] [address] Oct, Diabetes mellitus E11.9 ; De pression F32.9 ; Mixed hyperlipidemia E78.2 ; Hypotension, unspecified hypotension type I95.9 ; Pulmonary emphysema, unspecified emphysema type J43.9 and Weight loss, unintentional R63.4 [place] [address] [address] Oct, Chronic pain G89.29 [place] [address] [address] Sep, Chronic pain G89.29 [place] [address] [address] Sep, Hypothyroid E03.9 and Diabet es mellitus E11.9 [place] [address] [address] Aug, Type 2 diabetes mellitus wit h hyperglycemia E11.65 ; 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 ; Essential (primary) hypertension I10 ; Hypothyroid E03.9 ; Neuropathy G62.9 ; Chronic pain G89.29 ; Mixed hy perlipidemia E78.2 and Encounter for immunization Z23 [place] [address] [place] [id number] [address] [place] [address] Aug, Chronic pain G89.29 [place] [address] [place] [id number] [address] [place] [address] Aug, Overactive bladder N32.81 ; Diabetes mellitus E11.9 and Chronic pain G89.29 [place] [address] [place] [address] [place] [address] Jul, [facility] [address] [facility] [id number] [address] [place] [address] Jun, [facility] [address] [facility] [id number] [address] [place] [address] Jun, [facility] [address] [facility] [id number] [address] [place] [address] Jun, Hypothyroid E03.9 [facility] [address] [facility] [id number] [address] [place] [address] Jun, Diabetes mellitus E11.9 ; Hy pothyroid E03.9 ; Neuropathy G62.9 ; Chronic pain G89.29 and Neck mass R22.1 [facility] [address] [facility] [id number] [address] [place] [address] Apr, [facility] [address] [facility] [id number] [address] [place] [address] Apr, Acute cystitis without hemat uria N30.00 [facility] [address] [facility] [id number] [address] [place] [address] March, [facility] [address] [facility] [id number] [address] [place] [id number] March, [facility] [address] [facility] [id number] [address] [place] [address] March, Near syncope R55 [facility] [address] [facility] [id number] [address] [place] [address] Feb, [facility] [address] [facility] [id number] [address] [place] [address] Feb, Chronic pain G89.29 [facility] [address] [facility] [id number] [address] [place] [address] Feb, [facility] [address] [facility] [id number] [address] [place] [address] Feb, [facility] [address] [place] [id number] [address] [place] [address] Jan, Chronic pain G89.29 [facility] [address] [address] Jan, [facility] [address] [address] 16 Jan, 2017 [facility] [address] [address] 14 Jan, 2017 Diabetes mellitus E11.9 ; Hy pothyroid E03.9 ; GERD (gastroesophageal reflux disease) K21.9 ; Insomnia G47.00 ; Functional diarrhea 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 ; Neuropathy G62.9 ; Depression F32.9 ; Chronic pain G89.29 ; Irritable bowel syndrome with diarrhea K58.0 ; Overactive bladder N32.81 ; Mixed hyperlipidemia E78.2 and Bronchitis J40 [facility] [address] [address] Dec, [facility] [address] [place] [id number] [address] [place] [address] Dec, [facility] [address] [address] Dec, [facility] [address] [place] [id number] [address] [place] [address] Dec, [facility] [address] [place] [id number] [address] [place] [address] Dec, Chronic pain G89.29 [facility] [address] [place] [id number] [address] [place] [address] Dec, [facility] [address] [place] [id number] [address] [place] [address] Dec, [facility] [address] [place] [id number] [address] [place] [address] Dec, Type 2 diabetes mellitus wit h foot ulcer E11.621 [place] [address] [place] [id number] [address] [place] [address] 17 Dec, 2016 Type 2 diabetes mellitus wit h foot ulcer E11.621 [place] [address] [place] [id number] [place] [address] 14 Dec, 2016 HTN (hypertension) I10 ; Dep ression F32.9 ; Type 2 diabetes mellitus with foot ulcer E11.621 ; Functional diarrhea K59.1 ; Irritable bowel syndrome with diarrhea K58.0 ; Chronic pain G89.29 ; Insomnia G47.00 ; Overactive bladder N32.81 ; Mixed hyperlipidemia E78.2 ; Gastroesophageal reflux disease with esophagitis K21.0 and Acquired hypothyroidism E03.9 [place] [address] [address] Nov, [place] [address] [address] Oct, [place] [address] [address] Oct, [place] [address] [address] Oct, [place] [address] [address] Sep, Functional diarrhea K59.1 ; HTN (hypertension) I10 ; Diabetes mellitus E11.9 ; Depression F32.9 ; Overactive bladder N32.81 ; Mixed hyperlipidemia E78.2 ; Gastroesophageal reflux disease without esophagitis K21.9 ; Chronic pain G89.29 ; Insomnia G47.00 and Acquired hypothyroidism E03.9 [place] [address] [address] Sep, [place] [address] [address] Aug, Encounter for immunization Z 23 [place] [address] [address] Aug, [place] [address] [address] Jul, [place] [address] [address] Jun, Type 2 diabetes mellitus wit hout complications E11.9 ; HTN (hypertension) I10 ; Hypothyroid E03.9 ; Neuropathy G62.9 ; Depression F32.9 ; Chronic pain G89.29 ; GERD (gastroesophageal reflux disease) K21.9 ; Insomnia G47.00 ; Overactive bladder N32.81 ; Mixed hyperlipidemia E78.2 ; Diarrhea of infectious origin A09 and Environmental allergies Z91.09 [place] [address] [address] Apr, [place] [address] [address] March, Hypothyroidism, unspecified E03.9 and Mixed hyperlipidemia E78.2 [place] [address] [address] March, Diabetes mellitus E11.9 ; HT N (hypertension) I10 ; Hypothyroid E03.9 ; Depression F32.9 ; Overactive bladder N32.81 ; Other chronic pain G89.29 ; Lumbago with sciatica, unspecified side M54.40 ; Environmental allergies Z91.09 and Gastroesophageal reflux disease, esophagitis presence not specified K21.9 [place] [address] [address] March, [place] [address] [address] Jan, HTN (hypertension) I10 ; Hyp othyroid E03.9 ; Neuropathy G62.9 ; Diabetes mellitus E11.9 ; Chronic pain G89.29 ; GERD (gastroesophageal reflux disease) K21.9 ; Overactive bladder N32.81 and Depression F32.9 [place] [address] [address] Dec, Ear pain, left H92.02 ; HTN (hypertension) I10 ; Hypothyroid E03.9 ; Neuropathy G62.9 ; Diabetes mellitus E11.9 ; Depression F32.9 ; GERD (gastroesophageal reflux disease) K21.9 ; Insomnia G47.00 and Overactive bladder N32.81 [place] [address] [place] [address] Nov, Overactive bladder N32.81 an d Chronic pain G89.29 [place] [address] [place] [id number] [place] [address] Nov, Kidney failure N19 [place] [address] [place] [id number] [place] [address] Nov, [place] [address] [place] [id number] [address] [place] [address] Nov, [place] [address] [address] Nov, Diabetes mellitus E11.9 ; De pression F32.9 ; Chronic pain G89.29 ; GERD (gastroesophageal reflux disease) K21.9 ; Insomnia G47.00 ; HTN (hypertension) I10 ; Hypothyroid E03.9 ; COPD (chronic obstructive pulmonary disease) J44.9 ; Bladder incontinence R32 and Incontinence R32 [place] [address] [place] [address] Sep, Type 2 diabetes mellitus wit h foot ulcer E11.621 and Chromosomal abnormality, 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 [place] [address] [place] [id number] [address] [place] [address] Sep, [place] [address] [place] [id number] [place] [address] Aug, [place] [address] [place] [id number] [address] [place] [address] Aug, [place] [address] [place] [id number] [place] [address] Aug, HTN (hypertension) I10 ; Enc ounter for immunization Z23 ; Hypothyroid E03.9 ; Neuropathy G62.9 ; Diabetes mellitus E11.9 ; Depression F32.9 ; Chronic pain G89.29 ; GERD (gastroesophageal reflux disease) K21.9 ; Insomnia G47.00 and COPD (chronic obstructive pulmonary disease) J44.[address] [address] Jun, [address] [address] Jun, [address] [address] May, Essential hypertension, ivis gn 401.1 ; Unspecified hypothyroidism 244.9 ; Insomnia, unspecified 780.52 ; Shortness of breath 786.05 ; Depression 311 ; COPD (chronic obstructive pulmonary disease) 496 ; GERD (gastroesophageal reflux disease) 530.81 and Diabetes 1.5, 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 [address] May, [address] [address] May, [address] [address] May, Shortness of breath 786.05 ; Essential hypertension, benign 401.1 ; Diabetes mellitus 250.00 ; Hyperlipidemia 272.4 ; Hypothyroid 244.9 ; Insomnia 780.52 and Cough 786.[address] [address] Apr, [address] [address] March, Shortness of breath 786.05 ; Nausea with vomiting 787.01 ; Essential hypertension, benign 401.1 ; Diabetes mellitus 250.00 ; Hyperlipidemia 272.4 and Hypothyroid 244.[address] [address] 14 Feb, 2015 [facility] [address] [id number] [address] [place] [address], [place] [address] Feb, [facility] [address] [id number] [address] [place] [address], [place] [address] Jan, [facility] [address] [id number] [address] [place] [address], [place] [address] Jan, [facility] [place] [facility] [address] [id number] [address] [place] [address], [place] [address] Jan, [facility] [address] [id number] [address] [place] [address], [place] [address] Jan, [facility] [address] [id number] [address] [place] [address], [place] [address] Jan, [facility] [address] [id number] [address] [place] [address], [place] [address] Jan, [facility] [address] [id number] [address] [place] [address], [place] [address] Jan, [facility] [address] [id number] [address] [place] [address], [place] [address] Jan, [facility] [address] [id number] [address] [place] [address], [place] [address] Jan, [facility] [address] [id number] [address] [place] [address], [place] [address] Jan, [facility] [place] [facility] [address] [id number] [address] [place] [address], [place] [address] Dec, [facility] [place] [facility] [address] [id number] [address] [place] [address], [place] [address] Dec, [facility] [place] [facility] [address] [id number] [address] [place] [address], [place] [address] Dec, [facility] [place] [facility] [address] [id number] [address] [place] [address], [place] [address] Dec, [facility] [place] [facility] [address] [id number] [address] [place] [address], [place] [address] Dec, 2014 [facility] [address] [id number] [address] [place] [address], [place] [address] Dec, 2014 [facility] [address] [id number] [address] [place] [address], [place] [id number] Dec, 2014 [facility] [address] [id number] [address] [place] [address], [place] [id number] Dec, 2014 [facility] [address] [id number] [address] [place] [address], [place] [id number] Dec, 2014 [facility] [address] [id number] [address] [place] [address], [place] [id number] Dec, 2014 [facility] [address] [id number] [address] [place] [address], [place] [id number] Oct, [facility] [address] [id number] [address] [place] [address], [place] [id number] Oct, [facility] [address] [id number] [address] [place] [address], [place] [id number] Oct, [facility] [address] [id number] [address] [place] [address], [place] [id number] Oct, [facility] [address] [id number] [address] [place] [id number] Oct, [facility] [address] [id number] [address] [place] [id number] Oct, [facility] [address] [id number] [address] [place] [address], [place] [id number] Oct, [facility] [address] [id number] [address] [place] [address], [place] [id number] Oct, [facility] [address] [id number] [address] [place] [id number] Oct, [facility] [address] [id number] [address] [place] [address], [place] [id number] Oct, [facility] [address] [id number] [address] [place] [address], [place] [id number] Oct, [facility] [address] [id number] [address] [place] [address], [place] [id number] Oct, [facility] [address] [id number] [address] [place] [address], [place] [id number] Oct, [facility] [address] [id number] [address] [place] [address], [place] [id number] Oct, [facility] [address] [id number] [address] [place] [address], [place] [id number] Sep, [facility] [address] [address] [id number] [address] [place] [address], [place] [address] Sep, [facility] [address] [id number] [address] [place] [address], [place] [address] Sep, [facility] [address] [id number] [address] [place] [address], [place] [address] Sep, [facility] [address] [id number] [address] [place] [address], [place] [address] Sep, [facility] [address] [id number] [address] [place] [address], [place] [address] Sep, [facility] [address] [id number] [address] [place] [address], [place] [address] Sep, [facility] [address] [id number] [address] [place] [address], [place] [address] Sep, [facility] [address] [id number] [address] [place] [address], [place] [address] Sep, [facility] [address] [id number] [address] [place] [address], [place] [address] Aug, [facility] [address] [id number] [address] [place] [address], [place] [address] Aug, [facility] [address] [id number] [address] [place] [address], [place] [address] 17 Aug, 2013 [facility] [address] [id number] [address] [place] [address], [place] [address] 17 Aug, 2014 [facility] [address] [id number] [address] [place] [address], [place] [address] 16 Aug, 2013 [facility] [address] [id number] [address] [place] [address], [place] [address] Aug, [facility] [address] [id number] [address] [place] [address], [place] [address] Aug, [facility] [address] [id number] [address] [place] [address], [place] [address] Aug, [facility] [address] [id number] [address] [place] [address], [place] [address] Aug, [facility] [address] [id number] [address] [place] [address], [place] [address] 29 Jul, 2013 [facility] [address] [id number] [address] [place] [address], [place] [address] 29 Sep, 2013 [facility] [address] [id number] [address] [place] [address], [place] [address] 25 Sep, 2013 [facility] [address] [id number] [address] [place] [address], [place] [address] 25 Sep, 2013 [facility] [address] [id number] [address] [place] [address], [place] [address] 25 Sep, 2013 [facility] [address] [id number] [address] [place] [address], [place] [address] 25 Sep, 2013 [facility] [address] [id number] [address] [place] [address], [place] [id number] 25 Jul, 2013 [facility] [address] [id number] [address] [place] [address], [place] [id number] 25 Jul, 2013 [facility] [address] [id number] [address] [place] [address], [place] [address] Jul, [facility] [address] [id number] [facility] [place] [address] Jul, [facility] [address] [id number] [facility] [place] [address] Jun, [facility] [address] [id number] [facility] [place] [address] Jun, [facility] [address] [id number] [address] [place] [address], [place] [address] Jun, [facility] [address] [id number] [facility] [place] [address] Jun, [facility] [address] [id number] [address] [place] [address], [place] [address] Jun, [facility] [address] [id number] [address] [place] [address], [place] [address] Jun, [facility] [address] [id number] [address] [place] [address], [place] [address] Jun, [facility] [address] [id number] [address] [place] [address], [place] [address] Jun, [facility] [address] [id number] [address] [place] [address], [place] [address] Jun, [facility] [address] [id number] [address] [place] [address], [place] [address] Jun, [facility] [address] [id number] [address] [place] [address], [place] [address] Jun, [facility] [address] [id number] [address] [place] [address], [place] [address] Jun, [facility] [address] [id number] [address] [place] [address], [place] [address] May, [facility] [address] [id number] [address] [place] [address], [place] [address] May, [facility] [address] [id number] [facility] [place] [address] May, [facility] [address] [id number] [address] [place] [address], [place] [address] May, [facility] [address] [id number] [address] [place] [address], [place] [address] May, [facility] [address] [id number] [address] [place] [address], [place] [address] May, [facility] [address] [id number] [address] [place] [address], [place] [address] March, [facility] [address] [id number] [address] [place] [address], [place] [address] March, [facility] [address] [id number] [address] [place] [address], [place] [address] March, [facility] [address] [id number] [address] [place] [address], [place] [address] March, [facility] [address] [id number] [address] [place] [address], [place] [address] March, [facility] [address] [id number] [address] [place] [address], [place] [address] March, [facility] [address] [id number] [address] [place] [address], [place] [address] Feb, [facility] [address] [id number] [address] [place] [address], [place] [address] Feb, [facility] [address] [id number] [address] [place] [address], [place] [address] Feb, [facility] [address] [id number] [address] [place] [address], [place] [address] Feb, [facility] [address] [id number] [address] [place] [address], [place] [address] Jan, [facility] [address] [id number] [address] [place] [address], [place] [address] Jan, [facility] [address] [id number] [facility] [place] [address] Jan, [facility] [address] [id number] [facility] [place] [address] Jan, [facility] [address] [id number] [facility] [place] [address] Jan, [facility] [address] [id number] [address] [place] [address], [place] [address] Jan, [facility] [address] [id number] [address] [place] [address], [place] [address] Jan, [facility] [address] [id number] [address] [place] [address], [place] [address] Jan, [facility] [address] [id number] [address] [place] [address], [place] [address] Jan, [facility] [address] [id number] [address] [place] [address], [place] [address] Jan, [facility] [address] [id number] [address] [place] [address], [place] [address] Jan, [facility] [address] [id number] [address] [place] [address], [place] [address] Jan, [facility] [address] [id number] [address] [place] [address], [place] [address] Dec, [facility] [address] [id number] [address] [place] [address], [place] [address] Dec, [facility] [address] [id number] [address] [place] [address], [place] [address] Dec, [facility] [address] [id number] [address] [place] [address], [place] [address] Dec, [facility] [address] [id number] [address] [place] [address], [place] [address] Dec, [facility] [address] [id number] [address] [place] [address] Dec, [facility] [address] [id number] [address] [place] [address], [place] [address] Nov, [facility] [address] [id number] [address] [place] [address], [place] [address] Nov, [facility] [address] [id number] [address] [place] [address], [place] [address] Oct, [facility] [address] [id number] [address] [place] [address], [place] [address] Oct, [facility] [address] [id number] [address] [place] [address], [place] [address] Oct, [facility] [address] [id number] [address] [place] [address], [place] [address] Oct, [facility] [address] [id number] [address] [place] [address], [place] [address] Oct, [facility] [address] [id number] [address] [place] [address], [place] [address] Oct, [facility] [address] [id number] [address] [place] [address], [place] [address] Sep, [facility] [address] [id number] [address] [place] [address], [place] [address] Sep, [facility] [address] [id number] [address] [place] [address], [place] [address] Sep, [facility] [address] [id number] [address] [place] [address], [place] [address] Sep, [facility] [address] [id number] [address] [place] [address], [place] [address] Aug, [facility] [address] [id number] [address] [place] [address], [place] [address] Aug, [facility] [address] [id number] [address] [place] [address] Aug, [facility] [address] [id number] [address] [place] [address], [place] [address] 17 Jul, 2013 [facility] [address] [id number] [address] [place] [address], [place] [address] 14 Jul, 2013 [facility] [address] [id number] [address] [place] [address], [place] [address] 04 Jul, 2013 [facility] [address] [id number] [address] [place] [address], [place] [address] Jun, [facility] [address] [id number] [address] [place] [address], [place] [address] Jun, [facility] [address] [id number] [address] [place] [address], [place] [address] Jun, [facility] [address] [id number] [address] [place] [address], [place] [address] Apr, [facility] [address] [id number] [address] [place] [address], [place] [address] Apr, [facility] [address] [id number] [address] [place] [address], [place] [address] March, [facility] [address] [id number] [address] [place] [address], [place] [address] March, [facility] [address] [id number] [address] [place] [address], [place] [address] March, [facility] [address] [id number] [address] [place] [address], [place] [address] March, [facility] [address] [id number] [address] [place] [address], [place] [address] Feb, [facility] [address] [id number] [address] [place] [address], [place] [address] Jan, [facility] [address] [id number] [address] [place] [address], [place] [address] Dec, [facility] [address] [id number] [address] [place] [address], [place] [address] 08 Dec, 2012 [facility] [address] [id number] [address] [place] [address], [place] [address] Dec, [facility] [address] [id number] [address] [place] [address], [place] [address] Nov, [facility] [address] [id number] [address] [place] [address], [place] [address] Oct, [facility] [address] [id number] [address] [place] [address], [place] [address] Oct, [facility] [address] [id number] [address] [place] [address], [place] [address] Sep, [facility] [address] [id number] [address] [place] [address], [place] [address] Sep, [facility] [address] [id number] [address] [place] [address], [place] [address] Sep, [facility] [address] [id number] [address] [place] [address], [place] [address] Sep, [facility] [address] [id number] [address] [place] [address], [place] [address] Sep, [facility] [address] [id number] [address] [place] [address], [place] [address] Sep, [facility] [address] [id number] [address] [place] [address], [place] [address] Sep, [facility] [address] [id number] [address] [place] [address], [place] [address] Aug, [facility] [address] [id number] [address] [place] [address], [place] [address] Aug, [facility] [address] [id number] [address] [place] [address], [place] [address] Aug, [facility] [address] [id number] [address] [place] [address], [place] [address] Aug, [facility] [address] [id number] [address] [place] [address], [place] [address] 08 Aug, 2012 [facility] [address] [id number] [address] [place] [address], [place] [id number] 08 Aug, 2012 [facility] [address] [id number] [address] [place] [address], [place] [address] Aug, [facility] [address] [id number] [address] [place] [address], [place] [address] Aug, [facility] [address] [id number] [address] [place] [address], [place] [address] Jul, [facility] [address] [id number] [address] [place] [address], [place] [address] Jul, [facility] [address] [id number] [address] [place] [address], [place] [address] Jun, [facility] [address] [id number] [address] [place] [address], [place] [address] May, [facility] [address] [id number] [address] [place] [address], [place] [address] Apr, [facility] [address] [id number] [address] [place] [address], [place] [address] Apr, [facility] [address] [id number] [address] [place] [address], [place] [address] Apr, [facility] [address] [id number] [address] [place] [address], [place] [address] March, [facility] [address] [id number] [address] [place] [address], [place] [address] March, [facility] [address] [id number] [address] [place] [address], [place] [address] March, [facility] [address] [id number] [address] [place] [address], [place] [address] March, [facility] [address] [id number] [address] [place] [address], [place] [address] March, [facility] [address] [id number] [address] [place] [address], [place] [address] March, [facility] [address] [id number] [address] [place] [address], [place] [address] March, [facility] [address] [id number] [address] [place] [address], [place] [address] Jan, [facility] [address] [id number] [address] [place] [address], [place] [address] Jan, [facility] [address] [id number] [address] [place] [address], [place] [address] Jan, [facility] [address] [id number] [address] [place] [address], [place] [address] Jan, [facility] [address] [id number] [address] [place] [address], [place] [address] Jan, [facility] [address] [id number] [address] [place] [address], [place] [address] Dec, [facility] [address] [id number] [address] [place] [address], [place] [address] Dec, [facility] [address] [id number] [address] [place] [address], [place] [address] Nov, [facility] [address] [id number] [address] [place] [address], [place] [address] Nov, [facility] [address] [id number] [address] [place] [address], [place] [address] Nov, [facility] [address] [id number] [address] [place] [address], [place] [id number] Nov, [facility] [address] [id number] [address] [place] [address], [place] [address] Oct, [facility] [address] [id number] [address] [place] [address], [place] [address] Oct, [facility] [address] [id number] [address] [place] [address], [place] [address] 14 Sep, 2011 [facility] [address] [id number] [address] [place] [address], [place] [id number] 10 Sep, 2011 [facility] [address] [id number] [address] [place] [address], [place] [address] 10 Sep, 2011 [facility] [address] [id number] [address] [place] [address], [place] [address] 11 May, 2011 [facility] [address] [id number] [address] [place] [address], [place] [id number] 20 Nov, 2010 [facility] [address] [id number] [address] [place] [address], [place] [address] 29 Oct, 2010 [facility] [address] [id number] [address] [place] [address], [place] [address] 14 Oct, 2010 [facility] [address] [id number] [address] [place] [address], [place] [address] 08 Oct, 2010 [facility] [address] [id number] [address] [place] [address], [place] [id number] 15 Sep, 2010 [facility] [address] [id number] [address] [place] [address], [place] [id number] 02 Sep, 2010 [facility] [address] [id number] [address] [place] [address], [place] [id number] Aug, [facility] [address] [id number] [address] [place] [address], [place] [id number] March, [facility] [address] [id number] [address] [place] [address], [place] [id number] 17 Oct, 2009 [facility] [address] [id number] [address] [place] [address], [place] [id number] Oct, [facility] [address] [id number] [address] [place] [address], [place] [id number] Oct, [facility] [address] [id number] [address] [place] [address], [place] [id number] Oct, [facility] [address] [facility] [id number] [address] [place] [id number] Sep, [facility] [address] [facility] [id number] [address] [place] [id number] Sep, [facility] [address] [facility] [id number] [address] [place] [id number] Sep, [facility] [address] [facility] [id number] [address] [place] [id number] Aug, [facility] [address] [facility] [id number] [address] [place] [phone] Aug, [facility] [address] [facility] [id number] [address] [place] [id number] Aug, [facility] [address] [facility] [id number] [address] [place] [phone] Jan, IMMUNIZATIONS No Known Immunizations SOCIAL HISTORY [...]
--- OUTSIDE RECORDS SUMMARY | 2020-06-13 16:26 | XMS REPORT ---
Author Author Jah PARKER Organization [facility] [place] Address [address] [place] [address] Care Team Providers Care Fundraising Sale Representative Name Role Phone PARKERPATRICIA Mckeon Unavailable PROBLEMS Type Condition ICD9-CM Code [id number] Code Onset Dates Condition S tatus SNOMED Code Problem Type 2 diabetes mellitus with hyperglycemia E11.65 Active 16928630 Problem Pulmonary emphysema, unspecified emphysema type J4 3.9 Active 76129092 Problem Essential (primary) hypertension I10 Active 00053991 Problem Hypertriglyceridemia E78.1 Active 669780778 Problem Anxiety disorder, unspecified type F41.9 Active 600715839 Problem Recurrent major depressive disorder, in partial remission F33.41 Active 64406292 Problem Current non-adherence to medical treatment Z91.19 Active 3292193 Problem Major depressive disorder, recurrent episode, moderate F33.1 Active 206046128 Problem Chronic fatigue R53.82 Active 8422 9001 Problem Hypothyroid E03.9 Active 81480902 Problem Neuropathy G62.9 Active 382424331 Problem Thrombocytosis D47.3 Active 26020 09 Problem Mixed hyperlipidemia E78.2 Active 009749183 Problem Irritable bowel syndrome with diarrhea K58.0 Active 564687993 Problem Chronic pain G89.29 Active 5429145 1 Problem Gastroesophageal reflux disease with esophagitis K 21.0 Active 511947669 Problem Overactive bladder N32.81 Active 2 83322819 Problem skilled nursing current use of insulin Z79.4 Active 680273825 ALLERGIES Substance Reaction Event Type Date Status Trilipix nausea Drug Allergy Apr, Active Niacin rash Drug Allergy Apr, Active Metformin HCl diarrhea Drug Allergy Apr, Active Januvia diarrhea Drug Allergy Apr, Active Gemfibrozil diarrhea Drug Allergy Apr, Active Actos diarrhea Drug Allergy Apr, Active ENCOUNTERS Encounter Location Date Diagnosis [facility] [place] [address] [facility] [id number] [address] [address] Jun, Type 2 diabetes mellitus wit h hyperglycemia E11.65 ; Neuropathy G62.9 ; Recurrent major depressive disorder, in partial remission F33.41 ; Chronic pain G89.29 and Hypertriglyceridemia E78.1 [facility] [place] [address] [facility] [id number] [address] [place] [phone] Jun, Hypothyroid E03.9 [facility] [place] [address] [facility] [id number] [address] [place] [phone] Jun, Major depressive disorder, r ecurrent episode, moderate F33.1 and Anxiety disorder, unspecified type F41.9 [facility] [place] [address] [facility] [id number] [address] [place] [phone] Jun, [facility] [place] [address] [facility] [id number] [address] [place] [address] Jun, Type 2 diabetes mellitus wit h hyperglycemia E11.65 ; skilled nursing current use of insulin Z79.4 ; Recurrent major depressive disorder, in partial remission F33.41 ; Hypothyroid E03.9 ; Candidal dermatitis B37.2 and Weakness generalized R53.1 [facility] [place] [address] [facility] [id number] [address] [place] [phone] May, [facility] [place] [address] [facility] [id number] [address] [place] [phone] May, [facility] [place] [address] [facility] [id number] [address] [place] [phone] May, [facility] [place] [address] [facility] [id number] [address] [place] [phone] May, Generalized abdominal pain R 10.84 and Candidal dermatitis B37.2 [facility] [place] [address] [facility] [id number] [address] [place] [phone] May, [facility] [place] [address] [facility] [id number] [address] [place] [phone] May, [facility] [place] [address] [facility] [id number] [address] [place] [address] May, Nodular radiologic density R 93.8 ; Weight loss, unintentional R63.4 and Pulmonary emphysema, unspecified emphysema type J43.9 [facility] [place] [address] [id number] [address] [place] [phone] 10 May, 2018 Chronic pain G89.29 [facility] [place] [address] [id number] [address] [place] [phone] 09 May, 2018 Syncope and collapse R55 ; C hronic fatigue R53.[address] lung screening R91.8 [facility] [place] [address] [id number] [address] [place] [phone] May, [facility] [place] [address] [facility] [id number] [address] [place] [phone] Apr, Chronic fatigue R53.82 ; Abn ormal chest CT R93.8 ; Elevated erythrocyte sedimentation rate R70.0 ; Hypothyroid E03.9 and Recurrent major depressive disorder, in partial remission F33.41 [place] [address] [id number] [address] [place] [phone] Apr, Hypothyroid E03.9 [facility] [place] [address] [id number] [address] [place] [phone] Apr, Depression F32.9 [facility] [place] [address] [id number] [address] [place] [phone] Apr, [facility] [place] [address] [id number] [address] [place] [phone] March, [facility] [place] [address] [id number] [address] [place] [phone] March, Hypothyroid E03.9 [facility] [place] [address] [id number] [address] [place] [phone] March, Diabetes mellitus E11.9 and Hypothyroid E03.9 [facility] [place] [address] [facility] [id number] [address] [place] [phone] March, Diabetes mellitus E11.9 [facility] [place] [address] [place] [id number] [address] [place] [phone] March, Hypothyroid E03.9 and Elevat ed liver enzymes R74.8 [place] [id number] [address] [place] [phone] March, Type 2 diabetes mellitus wit h hyperglycemia E11.65 ; skilled nursing current use of insulin Z79.4 ; Pulmonary emphysema, unspecified emphysema type J43.9 ; Hypothyroid E03.9 ; Neuropathy G62.9 ; Mixed hyperlipidemia E78.2 ; Chronic pain G89.29 ; Gastroesophageal reflux disease with esophagitis K21.0 ; Irritable bowel syndrome with diarrhea K58.0 ; Overactive bladder N32.81 and Recurrent major depressive disorder, in partial remission F33.41 [place] [id number] [address] [place] [phone] Feb, Chronic pain G89.[address] [address] Feb, Type 2 diabetes mellitus wit h hyperglycemia E11.65 and Skin lesion of scalp L98.9 [place] [id number] [address] [place] [phone] Feb, [place] [id number] [address] [place] [phone] Jan, Type 2 diabetes mellitus wit h [...] and Irritable bowel syndrome with diarrhea K58.0 [place] [address] [place] [id number] [address] [place] [phone] Jan, [place] [id number] [address] [place] [phone] Jan, Controlled substance agreeme nt signed Z79.899 [facility] [place] [address] [id number] [address] [place] [phone] 08 Dec, 2017 Type 2 diabetes mellitus wit h hyperglycemia E11.65 ; Controlled substance agreement signed Z79.899 ; 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.4 ; Essential (primary) hypertension I10 ; Hypothyroid E03.9 ; Neuropathy G62.9 ; Depression F32.9 ; Mixed hyperlipidemia E78.2 ; Irritable bowel syndrome with diarrhea K58.0 ; Gastroesophageal reflux disease with esophagitis K21.0 ; Thrombocytosis D47.3 ; Current non-adherence to medical treatment Z91.19 and Overweight (BMI 25.0-29.9) E66.3 [place] [address] [facility] [id number] [address] [place] [phone] 02 Dec, 2017 Controlled substance agreeme nt signed Z79.899 [place] [address] [facility] [id number] [address] [place] [phone] Nov, Type 2 diabetes mellitus wit h hyperglycemia E11.65 and Current non- adherence to medical treatment Z91.19 [place] [address] [id number] [address] [place] [phone] Nov, [place] [address] [facility] [id number] [address] [place] [phone] Nov, Chronic pain G89.29 [place] [address] [facility] [id number] [address] [place] [phone] Nov, [place] [address] [facility] [id number] [address] [place] [phone] Nov, Hypothyroid E03.9 [place] [address] [facility] [id number] [address] [place] [phone] Nov, Hypothyroid E03.9 [place] [address] [facility] [id number] [address] [place] [phone] Nov, Pulmonary emphysema, unspeci fied emphysema type J43.9 and Irritable bowel syndrome with diarrhea K58.0 [place] [address] [facility] [id number] [address] [place] [phone] Oct, [place] [address] [facility] [id number] [address] [place] [phone] Oct, [place] [address] [facility] [id number] [address] [place] [phone] Oct, [place] [address] [facility] [id number] [address] [place] [phone] Oct, [place] [address] [facility] [id number] [address] [place] [phone] Oct, Chronic pain G89.29 [place] [address] [place] [id number] [place] [phone] Oct, Diabetes mellitus E11.9 ; De pression F32.9 ; Mixed hyperlipidemia E78.2 ; Hypotension, unspecified hypotension type I95.9 ; Pulmonary emphysema, unspecified emphysema type J43.9 and Weight loss, unintentional R63.4 [place] [address] [place] [id number] [address] [place] [phone] Oct, Chronic pain G89.29 [place] [address] [place] [id number] [address] [place] [phone] Sep, Chronic pain G89.29 [place] [address] [place] [id number] [address] [place] [phone] Sep, Hypothyroid E03.9 and Diabet es mellitus E11.9 [place] [address] [place] [id number] [address] [place] [phone] Aug, Type 2 diabetes mellitus wit h hyperglycemia E11.65 ; 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.4 ; Essential (primary) hypertension I10 ; Hypothyroid E03.9 ; Neuropathy G62.9 ; Chronic pain G89.29 ; Mixed hy perlipidemia E78.2 and Encounter for immunization Z23 [place] [address] [facility] [id number] [address] [place] [phone] Aug, Chronic pain G89.29 [facility] [place] [address] [id number] [address] [place] [phone] Aug, Overactive bladder N32.81 ; Diabetes mellitus E11.9 and Chronic pain G89.29 [facility] [place] [address] [id number] [address] [place] [phone] Jul, [facility] [place] [address] [facility] [id number] [address] [place] [phone] Jun, [facility] [place] [address] [id number] [address] [place] [phone] Jun, [facility] [place] [address] [facility] [id number] [address] [place] [phone] Jun, Hypothyroid E03.9 [facility] [place] [address] [facility] [id number] [address] [place] [phone] Jun, Diabetes mellitus E11.9 ; Hy pothyroid E03.9 ; Neuropathy G62.9 ; Chronic pain G89.29 and Neck mass R22.1 [facility] [place] [address] [facility] [id number] [address] [place] [phone] Apr, [facility] [place] [address] [facility] [id number] [address] [place] [phone] Apr, Acute cystitis without hemat uria N30.00 [facility] [place] [address] [facility] [id number] [address] [place] [phone] March, [facility] [place] [address] [facility] [id number] [address] [place] [phone] March, [facility] [place] [address] [facility] [id number] [address] [place] [phone] March, Near syncope R55 [facility] [place] [address] [facility] [id number] [address] [place] [phone] Feb, [facility] [place] [address] [facility] [id number] [address] [place] [phone] Feb, Chronic pain G89.29 [facility] [place] [address] [facility] [id number] [address] [place] [phone] Feb, [facility] [place] [address] [place] [id number] [address] [place] [phone] Feb, [facility] [place] [address] [facility] [id number] [address] [place] [phone] Jan, Chronic pain G89.29 [facility] [place] [address] [place] [id number] [address] [place] [phone] Jan, [facility] [place] [address] [place] [id number] [address] [place] [phone] Jan, [facility] [place] [address] [place] [id number] [address] [place] [phone] Jan, Diabetes mellitus E11.9 ; Hy pothyroid E03.9 ; GERD (gastroesophageal reflux disease) K21.9 ; Insomnia G47.00 ; Functional diarrhea K59.1 ; Neuropathy G62.9 ; Depression F32.9 ; Chronic pain G89.29 ; Irritable bowel syndrome with diarrhea K58.0 ; Overactive bladder N32.81 ; Mixed hyperlipidemia E78.2 and Bronchitis J40 [facility] [place] [address] [place] [id number] [address] [place] [phone] Dec, [facility] [place] [address] [place] [id number] [address] [place] [phone] Dec, [facility] [place] [id number] [place] [phone] Dec, [facility] [place] [address] [facility] [id number] [address] [place] [phone] Dec, [facility] [place] [address] [place] [id number] [address] [place] [phone] Dec, Chronic pain G89.29 [facility] [place] [address] [place] [id number] [address] [place] [phone] Dec, [facility] [place] [address] [place] [id number] [address] [place] [phone] Dec, [place] [address] [address] Dec, Type 2 diabetes mellitus wit h foot ulcer E11.621 [place] [address] [address] 17 Dec, 2016 Type 2 diabetes mellitus wit h foot ulcer E11.621 [place] [address] [address] 14 Dec, 2016 HTN (hypertension) I10 ; Dep ression F32.9 ; Type 2 diabetes mellitus with foot ulcer E11.621 ; Functional diarrhea K59.1 ; Irritable bowel syndrome with diarrhea K58.0 ; Chronic pain G89.29 ; Insomnia G47.00 ; Overactive bladder N32.81 ; Mixed hyperlipidemia E78.2 ; Gastroesophageal reflux disease with esophagitis K21.0 and Acquired hypothyroidism E03.9 [place] [address] [address] Nov, [place] [address] [address] Oct, [place] [address] [address] Oct, [place] [address] [address] Oct, [place] [address] [address] Sep, Functional diarrhea K59.1 ; HTN (hypertension) I10 ; Diabetes mellitus E11.9 ; Depression F32.9 ; Overactive bladder N32.81 ; Mixed hyperlipidemia E78.2 ; Gastroesophageal reflux disease without esophagitis K21.9 ; Chronic pain G89.29 ; Insomnia G47.00 and Acquired hypothyroidism E03.9 [place] [address] [address] Sep, [place] [address] [address] 11 Aug, 2016 Encounter for immunization Z 23 [place] [address] [address] 06 Aug, 2016 [place] [address] [address] Jul, [place] [address] [address] Jun, Type 2 diabetes mellitus wit hout complications E11.9 ; HTN (hypertension) I10 ; Hypothyroid E03.9 ; Neuropathy G62.9 ; Depression F32.9 ; Chronic pain G89.29 ; GERD (gastroesophageal reflux disease) K21.9 ; Insomnia G47.00 ; Overactive bladder N32.81 ; Mixed hyperlipidemia E78.2 ; Diarrhea of infectious origin A09 and Environmental allergies Z91.09 [place] [address] [address] Apr, [place] [address] [address] March, Hypothyroidism, unspecified E03.9 and Mixed hyperlipidemia E78.2 [place] [address] [address] March, Diabetes mellitus E11.9 ; HT N (hypertension) I10 ; Hypothyroid E03.9 ; Depression F32.9 ; Overactive bladder N32.81 ; Other chronic pain G89.29 ; Lumbago with sciatica, unspecified side M54.40 ; Environmental allergies Z91.09 and Gastroesophageal reflux disease, esophagitis presence not specified K21.9 [place] [address] [address] March, [place] [address] [address] Jan, HTN (hypertension) I10 ; Hyp othyroid E03.9 ; Neuropathy G62.9 ; Diabetes mellitus E11.9 ; Chronic pain G89.29 ; GERD (gastroesophageal reflux disease) K21.9 ; Overactive bladder N32.81 and Depression F32.9 [place] [address] [place] [address] 12 Dec, 2015 Ear pain, left H92.02 ; HTN (hypertension) I10 ; Hypothyroid E03.9 ; Neuropathy G62.9 ; Diabetes mellitus E11.9 ; Depression F32.9 ; GERD (gastroesophageal reflux disease) K21.9 ; Insomnia G47.00 and Overactive bladder N32.81 [place] [address] [place] [id number] [address] [place] [phone] Nov, Overactive bladder N32.81 an d Chronic pain G89.29 [place] [address] [place] [id number] [address] [place] [phone] Nov, Kidney failure N19 [place] [address] [address] Nov, [place] [address] [place] [id number] [address] [place] [phone] Nov, [place] [address] [address] Nov, Diabetes mellitus E11.9 ; De pression F32.9 ; Chronic pain G89.29 ; GERD (gastroesophageal reflux disease) K21.9 ; Insomnia G47.00 ; HTN (hypertension) I10 ; Hypothyroid E03.9 ; COPD (chronic obstructive pulmonary disease) J44.9 ; Bladder incontinence R32 and Incontinence R32 [place] [address] [place] [id number] [address] [place] [address] Sep, Type 2 diabetes mellitus wit h foot ulcer E11.621 and Chromosomal abnormality, 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 [place] [address] [place] [id number] [address] [place] [phone] Sep, [place] [address] [place] [id number] [place] [phone] Aug, [address] [address] Aug, [address] [address] Aug, Encounter for immunization Z 23 ; HTN (hypertension) I10 ; Hypothyroid E03.9 ; Neuropathy G62.9 ; Diabetes mellitus E11.9 ; Depression F32.9 ; Chronic pain G89.29 ; GERD (gastroesophageal reflux disease) K21.9 ; Insomnia G47.00 and COPD (chronic obstructive pulmonary disease) J44.[address] [address] Jun, [address] [address] Jun, [address] [address] May, Essential hypertension, ivis gn 401.1 ; Unspecified hypothyroidism 244.9 ; Insomnia, unspecified 780.52 ; Shortness of breath 786.05 ; Depression 311 ; COPD (chronic obstructive pulmonary disease) 496 ; GERD (gastroesophageal reflux disease) 530.81 and Diabetes 1.5, 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 [address] May, [address] [address] May, [address] [address] May, Shortness of breath 786.05 ; Essential hypertension, benign 401.1 ; Diabetes mellitus 250.00 ; Hyperlipidemia 272.4 ; Hypothyroid 244.9 ; Insomnia 780.52 and Cough 786.[address] [address] Apr, [address] [address] March, Shortness of breath 786.05 ; Nausea with vomiting 787.01 ; Essential hypertension, benign 401.1 ; Diabetes mellitus 250.00 ; Hyperlipidemia 272.4 and Hypothyroid 244.9 [facility] [place] [address] [id number] [address] [place] [id number] Feb, [facility] [place] [address] [facility] [id number] [address] [place] [phone] Feb, [facility] [place] [address] [id number] [address] [place] [phone] Jan, [facility] [place] [address] [id number] [address] [place] [phone] Jan, [facility] [place] [address] [facility] [id number] [address] [place] [phone] Jan, [facility] [place] [address] [facility] [id number] [address] [place] [phone] Jan, [facility] [place] [address] [facility] [id number] [address] [place] [phone] Jan, [facility] [place] [address] [facility] [id number] [address] [place] [phone] Jan, [facility] [place] [address] [facility] [id number] [address] [place] [phone] Jan, [facility] [place] [address] [facility] [id number] [address] [place] [phone] Jan, [facility] [place] [address] [facility] [id number] [address] [place] [phone] Jan, [facility] [place] [address] [facility] [id number] [address] [place] [id number] Jan, [facility] [place] [address] [facility] [id number] [address] [place] [address] Dec, [facility] [place] [address] [facility] [id number] [address] [place] [address] Dec, [facility] [address] [id number] [address] [place] [address], [place] [address] Dec, 2014 [facility] [address] [id number] [address] [place] [address], [place] [address] Dec, 2014 [facility] [address] [id number] [address] [place] [address], [place] [address] Dec, 2014 [facility] [address] [id number] [address] [place] [address], [place] [address] Dec, 2014 [facility] [address] [id number] [address] [place] [address], [place] [address] Dec, 2014 [facility] [address] [id number] [address] [place] [address], [place] [address] Dec, 2014 [facility] [address] [id number] [address] [place] [address], [place] [address] Dec, 2014 [facility] [address] [id number] [address] [place] [address], [place] [address] Dec, 2014 [facility] [address] [id number] [address] [place] [address], [place] [address] Oct, [facility] [address] [id number] [address] [place] [address], [place] [address] Oct, [facility] [address] [id number] [address] [place] [address], [place] [address] Oct, [facility] [address] [id number] [address] [place] [address], [place] [address] Oct, [facility] [address] [id number] [address] [place] [address], [place] [address] Oct, [facility] [address] [id number] [address] [place] [address], [place] [address] Oct, [facility] [address] [id number] [address] [place] [address], [place] [address] Oct, [facility] [address] [id number] [address] [place] [address] [place] [address] 05 Oct, 2014 [facility] [address] [id number] [address] [place] [address], [place] [address] Oct, [facility] [address] [id number] [address] [place] [address], [place] [address] Oct, [facility] [address] [id number] [address] [place] [address], [place] [address] Oct, [facility] [address] [id number] [address] [place] [address], [place] [address] Oct, [facility] [address] [id number] [address] [place] [address], [place] [address] Oct, [facility] [address] [id number] [address] [place] [address], [place] [address] Oct, [facility] [address] [id number] [address] [place] [address], [place] [address] Sep, [facility] [address] [id number] [address] [place] [address], [place] [address] Sep, [facility] [address] [id number] [address] [place] [address], [place] [address] Sep, [facility] [address] [id number] [address] [place] [address], [place] [address] Sep, [facility] [address] [id number] [address] [place] [address], [place] [address] Sep, [facility] [address] [id number] [address] [place] [address], [place] [address] Sep, [facility] [address] [id number] [address] [place] [address], [place] [address] Sep, [facility] [address] [id number] [address] [place] [address], [place] [address] Sep, [facility] [address] [id number] [address] [place] [address], [place] [address] Sep, [facility] [address] [id number] [address] [place] [address], [place] [address] 20 Aug, 2014 [facility] [address] [id number] [address] [place] [address], [place] [address] 20 Aug, 2014 [facility] [address] [id number] [address] [place] [address], [place] [address] 17 Aug, 2014 [facility] [address] [id number] [address] [place] [address], [place] [address] 17 Aug, 2014 [facility] [address] [id number] [address] [place] [address], [place] [address] 16 Aug, 2014 [facility] [address] [id number] [address] [place] [address], [place] [address] Aug, [facility] [address] [id number] [address] [place] [address], [place] [address] Aug, [facility] [address] [id number] [address] [place] [address], [place] [address] Aug, [facility] [address] [id number] [address] [place] [address], [place] [address] Aug, [facility] [address] [id number] [address] [place] [address], [place] [address] 29 Jul, 2013 [facility] [address] [id number] [address] [place] [address], [place] [address] 29 Sep, 2013 [facility] [address] [id number] [address] [place] [address], [place] [address] 25 Jul, 2013 [facility] [address] [id number] [address] [place] [address], [place] [address] 25 Jul, 2013 [facility] [address] [id number] [address] [place] [address], [place] [address] 25 Jul, 2013 [facility] [address] [id number] [address] [place] [address], [place] [address] 25 Jul, 2013 [facility] [address] [id number] [address] [place] [address], [place] [address] Jul, [facility] [address] [id number] [facility] [place] [address] Jul, [facility] [address] [id number] [address] [place] [address], [place] [address] Jul, [facility] [address] [id number] [address] [place] [address], [place] [address] Jul, [facility] [address] [id number] [address] [place] [address], [place] [address] Jun, [facility] [address] [id number] [address] [place] [address], [place] [address] Jun, [facility] [address] [id number] [address] [place] [address], [place] [address] Jun, [facility] [address] [id number] [address] [place] [address], [place] [address] Jun, [facility] [address] [id number] [address] [place] [address], [place] [address] Jun, [facility] [address] [id number] [address] [place] [address], [place] [address] Jun, [facility] [address] [id number] [address] [place] [address], [place] [address] Jun, [facility] [address] [id number] [address] [place] [address], [place] [address] Jun, [facility] [address] [id number] [address] [place] [address], [place] [address] Jun, [facility] [address] [id number] [address] [place] [address], [place] [address] Jun, [facility] [address] [id number] [address] [place] [address], [place] [address] Jun, [facility] [address] [id number] [address] [place] [address], [place] [address] Jun, [facility] [address] [id number] [facility] [place] [address] May, [facility] [address] [id number] [facility] [place] [address] May, [facility] [address] [id number] [facility] [place] [address] May, [facility] [address] [id number] [address] [place] [address], [place] [address] May, [facility] [address] [id number] [address] [place] [address], [place] [address] May, [facility] [address] [id number] [address] [place] [address], [place] [address] May, [facility] [address] [id number] [address] [place] [address], [place] [address] March, [facility] [address] [id number] [address] [place] [address], [place] [address] March, [facility] [address] [id number] [address] [place] [address], [place] [address] March, [facility] [address] [id number] [address] [place] [address], [place] [address] March, [facility] [address] [id number] [address] [place] [address], [place] [address] March, [facility] [address] [id number] [address] [place] [address], [place] [address] March, [facility] [address] [id number] [address] [place] [address], [place] [address] Feb, [facility] [address] [id number] [address] [place] [address], [place] [address] Feb, [facility] [address] [id number] [address] [place] [address], [place] [address] Feb, [facility] [address] [id number] [address] [place] [address], [place] [address] Feb, [facility] [address] [id number] [address] [place] [address], [place] [address] Jan, [facility] [address] [id number] [address] [place] [address], [place] [address] Jan, [facility] [address] [id number] [address] [place] [address], [place] [address] Jan, [facility] [address] [id number] [address] [place] [address], [place] [address] Jan, [facility] [address] [id number] [address] [place] [address], [place] [address] Jan, [facility] [address] [id number] [address] [place] [address], [place] [address] Jan, [facility] [address] [id number] [address] [place] [address], [place] [address] Jan, [facility] [address] [id number] [address] [place] [address], [place] [address] Jan, [facility] [address] [id number] [address] [place] [address], [place] [address] Jan, [facility] [address] [id number] [address] [place] [address], [place] [address] Jan, [facility] [address] [id number] [address] [place] [address], [place] [address] Jan, [facility] [address] [id number] [address] [place] [address], [place] [address] Jan, [facility] [address] [id number] [address] [place] [address], [place] [address] Dec, [facility] [address] [id number] [address] [place] [address], [place] [address] Dec, [facility] [address] [id number] [address] [place] [address], [place] [address] Dec, [facility] [address] [id number] [address] [place] [address], [place] [address] Dec, [facility] [address] [id number] [address] [place] [address], [place] [address] Dec, [facility] [address] [id number] [address] [place] [address], [place] [address] Dec, [facility] [address] [id number] [address] [place] [address], [place] [address] Nov, [facility] [address] [id number] [address] [place] [address], [place] [address] Nov, [facility] [address] [id number] [address] [place] [address], [place] [address] Oct, [facility] [address] [id number] [address] [place] [address], [place] [address] Oct, [facility] [address] [id number] [address] [place] [address], [place] [address] Oct, [facility] [address] [id number] [address] [place] [address], [place] [address] Oct, [facility] [address] [id number] [address] [place] [address], [place] [address] Oct, [facility] [address] [id number] [address] [place] [address], [place] [address] Oct, [facility] [address] [id number] [address] [place] [address], [place] [address] Sep, [facility] [address] [id number] [address] [place] [address], [place] [address] Sep, [facility] [address] [id number] [address] [place] [address], [place] [address] Sep, [facility] [address] [id number] [address] [place] [address], [place] [address] Sep, [facility] [address] [id number] [address] [place] [address] Aug, [facility] [address] [id number] [address] [place] [address], [place] [address] Aug, [facility] [address] [id number] [address] [place] [address], [place] [address] Aug, [facility] [address] [id number] [address] [place] [address], [place] [address] 17 Jul, 2013 [facility] [address] [id number] [address] [place] [address], [place] [address] 14 Jul, 2013 [facility] [address] [id number] [address] [place] [address], [place] [address] Jul, [facility] [address] [id number] [address] [place] [address], [place] [address] Jun, [facility] [address] [id number] [address] [place] [address], [place] [address] Jun, [facility] [address] [id number] [address] [place] [address], [place] [address] Jun, [facility] [address] [id number] [address] [place] [address], [place] [address] Apr, [facility] [address] [id number] [address] [place] [address], [place] [address] Apr, [facility] [address] [id number] [address] [place] [address], [place] [address] March, [facility] [address] [id number] [address] [place] [address], [place] [address] March, [facility] [address] [id number] [address] [place] [address], [place] [address] March, [facility] [address] [id number] [address] [place] [address], [place] [address] March, [facility] [address] [id number] [address] [place] [address], [place] [address] Feb, [facility] [address] [id number] [address] [address] Jan, [facility] [address] [id number] [address] [place] [address], [place] [address] 13 Dec, 2012 [facility] [address] [id number] [address] [place] [address], [place] [address] 08 Dec, 2012 [facility] [address] [id number] [address] [place] [address], [place] [address] 07 Dec, 2012 [facility] [address] [id number] [address] [place] [address] Nov, [facility] [address] [id number] [address] [place] [address], [place] [address] Oct, [facility] [address] [id number] [address] [place] [address], [place] [address] Oct, [facility] [address] [id number] [address] [place] [address] Sep, [facility] [address] [id number] [address] [place] [address], [place] [address] Sep, [facility] [address] [id number] [address] [place] [address] Sep, [facility] [address] [id number] [address] [place] [address], [place] [address] Sep, [facility] [address] [id number] [address] [place] [address] Sep, [facility] [address] [id number] [address] [place] [address] Sep, [facility] [address] [id number] [address] [place] [address] Sep, [facility] [address] [id number] [address] [place] [address] Aug, [facility] [address] [id number] [address] [place] [address], [place] [address] Aug, [facility] [address] [id number] [address] [place] [address], [place] [address] 10 Aug, 2012 [facility] [address] [id number] [address] [place] [address], [place] [address] 10 Aug, 2012 [facility] [address] [id number] [address] [place] [address], [place] [address] 08 Aug, 2012 [facility] [address] [id number] [address] [place] [address], [place] [address] 08 Aug, 2012 [facility] [address] [id number] [address] [place] [address], [place] [address] Aug, [facility] [address] [id number] [address] [place] [address], [place] [address] Aug, [facility] [address] [id number] [address] [place] [address], [place] [address] Jul, [facility] [address] [id number] [address] [place] [address], [place] [address] Jul, [facility] [address] [id number] [address] [place] [address], [place] [address] Jun, [facility] [address] [id number] [address] [place] [address], [place] [address] May, [facility] [address] [id number] [address] [place] [address], [place] [address] Apr, [facility] [address] [id number] [address] [place] [address], [place] [address] Apr, [facility] [address] [id number] [address] [place] [address], [place] [address] Apr, [facility] [address] [id number] [address] [place] [address], [place] [address] March, [facility] [address] [id number] [address] [place] [address], [place] [address] March, [facility] [address] [id number] [address] [place] [address], [place] [address] March, [facility] [address] [id number] [address] [place] [address], [place] [address] March, [facility] [address] [id number] [address] [place] [address], [place] [address] March, [facility] [address] [id number] [address] [place] [address], [place] [address] March, [facility] [address] [id number] [address] [place] [address], [place] [address] March, [facility] [address] [id number] [address] [place] [address], [place] [address] Jan, [facility] [address] [id number] [address] [place] [address], [place] [address] Jan, [facility] [address] [id number] [address] [place] [address], [place] [address] Jan, [facility] [address] [id number] [address] [place] [address], [place] [address] Jan, [facility] [address] [id number] [address] [place] [address], [place] [address] Jan, [facility] [address] [id number] [address] [place] [address], [place] [address] Dec, [facility] [address] [id number] [address] [place] [address], [place] [address] Dec, [facility] [address] [id number] [address] [place] [address], [place] [address] Nov, [facility] [address] [id number] [address] [place] [address], [place] [address] Nov, [facility] [address] [id number] [address] [place] [address], [place] [address] Nov, [facility] [address] [id number] [address] [place] [address], [place] [address] Nov, [facility] [address] [id number] [address] [place] [address], [place] [address] 21 Oct, 2011 [facility] [address] [id number] [address] [place] [address], [place] [address] 06 Oct, 2011 [facility] [address] [id number] [address] [place] [address], [place] [address] 14 Sep, 2011 [facility] [address] [id number] [address] [place] [address], [place] [address] 10 Sep, 2011 [facility] [address] [id number] [address] [place] [address], [place] [address] 10 Sep, 2011 [facility] [address] [id number] [address] [place] [address], [place] [address] 11 May, 2011 [facility] [address] [id number] [address] [place] [address], [place] [address] Nov, [facility] [address] [id number] [address] [place] [address], [place] [address] 29 Oct, 2010 [facility] [address] [id number] [address] [place] [address], [place] [address] 14 Oct, 2010 [facility] [address] [id number] [address] [place] [address], [place] [address] 08 Oct, 2010 [facility] [address] [id number] [address] [place] [address], [place] [address] 15 Sep, 2010 [facility] [address] [id number] [address] [place] [address], [place] [address] Sep, [facility] [address] [id number] [address] [place] [address], [place] [address] Aug, [facility] [address] [id number] [address] [place] [address], [place] [address] March, [facility] [address] [id number] [address] [place] [address], [place] [address] Oct, [facility] [address] [id number] [address] [place] [address], [place] [address] Oct, [facility] [place] [address] [id number] [address] [place] [id number] Oct, [facility] [place] [address] [id number] [address] [place] [id number] Oct, [facility] [place] [address] [id number] [address] [place] [id number] Sep, [facility] [place] [address] [id number] [address] [place] [id number] Sep, [facility] [place] [address] [id number] [address] [place] [id number] Sep, [facility] [place] [address] [id number] [address] [place] [id number] Aug, [facility] [place] [address] [facility] [id number] [address] [place] [id number] Aug, [facility] [place] [address] [id number] [address] [place] [id number] Aug, [facility] [place] [address] [facility] [id number] [address] [place] [id number] Jan, IMMUNIZATIONS No Known Immunizations SOCIAL HISTORY Never Assessed REASON FOR VISIT fatigue-mpolshakMA, Insomnia and weakness. PLAN OF CARE Activity Details Follow Up 3 Months, prn Reason:CHM/DM VITAL SIGNS Height 69 in 2018-05-09 Weight 178.3 lbs 2018-05-09 Temperature 99.4 degrees Fahrenheit 2018-05-09 Heart Rate 100 bpm 2018-05-09 Respiratory Rate 20 2018-05-09 BMI 26.33 kg/m2 2018-05-09 Blood pressure systolic 120 mmHg 2018-05-09 Blood pressure diastolic 65 mmHg 2018-05-09 MEDICATIONS Medication Instructions Dosage Frequency Start Date End Date Duration S tatus Levemir FlexTouch 100 UNIT/ML Subcutaneous 2 times a day INJ ECT 30 UNITS SUBCUTANEOUSLY TWICE DAILY (MUST KEEP APPOINTMENT ON 11/08 FOR REFILLS) 12h 12 months Active Proventil HFA 108 (90 Base) MCG/ACT Inhalation every 4 hrs 2 puffs as needed 4h 13 May, 2015 12 months Active MetFORMIN HCl ER 500 mg Orally twice a day 2 tablets 12h 90 days Active NovoLog Flexpen 100 UNIT/ML Subcutaneous 3 times a day wit meals 10 units 14 Jan, 2017 12 months Active Levothyroxine Sodium 125 MCG Orally Once a day on an e mpty stomach with a full glass of water 1 tablet Active Omeprazole 20 mg Orally 2 times a day TAKE ONE CAPSULE BY MOUTH TWI CE DAILY 12h 90 days Active Dicyclomine HCl 20 mg Orally 4 times a day TAKE ONE TABLET B Y MOUTH FOUR TIMES DAILY 6h 90 days Active Hydrocodone-Acetaminophen 5-325 MG Orally 3 times a day 1 tablet as needed 8h 16 Feb, 2018 28 days Active Effexor XR 75 mg Orally Once a day take 1 capsule (75 m g) by oral route once daily with food 24h Jan, Active Gabapentin 300 MG Orally Once a day 1 capsule before bedtime 24h Jan, 90 days Active Oxybutynin Chloride 5 mg Orally Twice a day 1 tablet 12h 90 days Active Trazodone HCl 50 mg Orally Once a day 1 tablet at bedtime as needed 24h 28 Apr, 2018 30 day(s) Active Lisinopril 10 mg Orally Once a day 1 tablet 24h Jan, 90 days Active Pravastatin Sodium 20 mg Orally Once a day 1 tablet 24h March, 90 days Active Victoza 18 MG/3ML Subcutaneous Once a day 1.8 mg 24h 12 months Active Welchol 625 MG Orally Once a day 1 capsule 24h Apr, 90 days Active RESULTS No Results PROCEDURES Procedure Date Ordered Result Body Site URINALYSIS, AUTO, W/O SCOPE May 09, 2018 [facility] May [facility], 2018 VENIPUNCT, ROUTINE* May 09, 2018 INSTRUCTIONS MEDICATIONS ADMINISTERED No Known [...]
--- OUTSIDE RECORDS SUMMARY | 2020-06-13 16:27 | XMS REPORT ---
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 Name Role Phone PARKERSHAYLEE MckeonELE Unavailable PROBLEMS Type Condition ICD9-CM Code NVD87-PN Code Onset Dates Condition S tatus SNOMED Code Problem Type 2 diabetes mellitus with hyperglycemia E11.65 Active 04100839 Problem Pulmonary emphysema, unspecified emphysema type J4 3.9 Active 50135633 Problem Essential (primary) hypertension I10 Active 20497295 Problem Hypertriglyceridemia E78.1 Active 338947926 Problem Major depressive disorder, recurrent episode, moderate F33.1 Active 691405073 Problem Recurrent major depressive disorder, in partial remission F33.41 Active 13931916 Problem Current non-adherence to medical treatment Z91.19 Active 0216698 Problem Anxiety disorder, unspecified type F41.9 Active 620042320 Problem Chronic fatigue R53.82 Active 8422 9001 Problem Chronic pain G89.29 Active 4883438 1 Problem Neuropathy G62.9 Active 514596399 Problem Thrombocytosis D47.3 Active 23687 09 Problem Mixed hyperlipidemia E78.2 Active 829451888 Problem Gastroesophageal reflux disease with esophagitis K 21.0 Active 251697833 Problem Hypothyroid E03.9 Active 02906810 Problem Irritable bowel syndrome with diarrhea K58.0 Active 289550491 Problem Overactive bladder N32.81 Active 2 94108823 Problem senior living current use of insulin Z79.4 Active [id number] ALLERGIES No Information ENCOUNTERS Encounter Location Date Diagnosis [facility] [place] [address] [facility] [id number] [address] [place] [address] Jun, Type 2 diabetes mellitus wit h hyperglycemia E11.65 ; Neuropathy G62.9 ; Recurrent major depressive disorder, in partial remission F33.41 ; Chronic pain G89.29 and Hypertriglyceridemia E78.1 [facility] [place] [address] [facility] [id number] [address] [place] [address] Jun, Hypothyroid E03.9 [facility] [place] [address] [id number] [address] [place] [phone] Jun, Major depressive disorder, r ecurrent episode, moderate F33.1 and Anxiety disorder, unspecified type F41.9 [facility] [place] [address] [id number] [address] [place] [address] Jun, [place] [address] [facility] [id number] [address] [place] [address] Jun, Type 2 diabetes mellitus wit h hyperglycemia E11.65 ; 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 ; Recurrent major depressive disorder, in partial remission F33.41 ; Hypothyroid E03.9 ; Candidal dermatitis B37.2 and Weakness generalized R53.1 [place] [address] [facility] [id number] [address] [place] [address] May, [place] [address] [id number] [address] [place] [address] May, [place] [address] [id number] [address] [place] [address] May, [place] [address] [facility] [id number] [address] [place] [address] May, Generalized abdominal pain R 10.84 and Candidal dermatitis B37.2 [place] [address] [facility] [id number] [address] [place] [address] May, [place] [address] [id number] [address] [place] [address] May, [place] [address] [facility] [id number] [address] [place] [address] May, Nodular radiologic density R 93.8 ; Weight loss, unintentional R63.4 and Pulmonary emphysema, unspecified emphysema type J43.9 [place] [address] [facility] [id number] [address] [place] [address] May, Chronic pain G89.29 [facility] [place] [address] [id number] [address] [place] [address] 09 May, 2018 Syncope and collapse R55 ; C hronic fatigue R53.[address] lung screening R91.8 [facility] [place] [address] [id number] [address] [place] [address] May, [facility] [place] [address] [id number] [address] [place] [address] Apr, Chronic fatigue R53.82 ; Abn ormal chest CT R93.8 ; Elevated erythrocyte sedimentation rate R70.0 ; Hypothyroid E03.9 and Recurrent major depressive disorder, in partial remission F33.41 [facility] [place] [address] [id number] [address] [place] [address] Apr, Hypothyroid E03.9 [facility] [place] [address] [id number] [address] [place] [phone] Apr, Depression F32.9 [facility] [place] [address] [id number] [address] [place] [address] Apr, [facility] [place] [address] [id number] [address] [place] [address] March, [facility] [place] [address] [facility] [id number] [address] [place] [address] March, Hypothyroid E03.9 [facility] [place] [address] [facility] [id number] [address] [place] [address] March, Diabetes mellitus E11.9 and Hypothyroid E03.9 [facility] [place] [address] [id number] [address] [place] [address] March, Diabetes mellitus E11.9 [facility] [place] [address] [facility] [id number] [address] [place] [address] March, Hypothyroid E03.9 and Elevat ed liver enzymes R74.8 [facility] [place] [address] [facility] [id number] [address] [place] [address] March, Type 2 diabetes mellitus wit h [...] disorder, in partial remission F33.41 [place] [id number] [place] [address] Feb, Chronic pain G89.29 [place] [id number] [place] [address] Feb, Type 2 diabetes mellitus wit h hyperglycemia E11.65 and Skin lesion of scalp L98.9 [place] [id number] [address] [place] [address] Feb, [place] [address] [address] Jan, Type 2 diabetes mellitus wit h [...] bowel syndrome with diarrhea K58.0 [place] [address] [place] [id number] [address] [place] [address] Jan, [place] [address] [place] [id number] [address] [place] [address] Jan, Controlled substance agreeme nt signed Z79.899 [place] [address] [place] [id number] [address] [place] [address] Dec, Type 2 diabetes mellitus wit h [...] and Overweight (BMI 25.0-29.9) E66.3 [place] [address] [facility] [id number] [address] [place] [address] 02 Dec, 2017 Controlled substance agreeme nt signed Z79.899 [place] [address] [place] [id number] [address] [place] [address] Nov, Type 2 diabetes mellitus wit h hyperglycemia E11.65 and Current non- adherence to medical treatment Z91.19 [place] [address] [facility] [id number] [address] [place] [address] Nov, [place] [address] [facility] [id number] [address] [place] [address] Nov, Chronic pain G89.29 [place] [address] [place] [id number] [address] [place] [address] Nov, [place] [address] [place] [id number] [address] [place] [address] Nov, Hypothyroid E03.9 [place] [address] [facility] [id number] [address] [place] [address] Nov, Hypothyroid E03.9 [place] [address] [facility] [id number] [address] [place] [address] Nov, Pulmonary emphysema, unspeci fied emphysema type J43.9 and Irritable bowel syndrome with diarrhea K58.0 [place] [address] [facility] [id number] [address] [place] [address] Oct, [place] [address] [place] [id number] [address] [place] [address] Oct, [place] [id number] [place] [address] Oct, [place] [address] [facility] [id number] [address] [place] [address] Oct, [place] [address] [place] [id number] [address] [place] [address] Oct, Chronic pain G89.29 [place] [address] [address] Oct, Diabetes mellitus E11.9 ; De pression F32.9 ; Mixed hyperlipidemia E78.2 ; Hypotension, unspecified hypotension type I95.9 ; Pulmonary emphysema, unspecified emphysema type J43.9 and Weight loss, unintentional R63.4 [place] [address] [address] Oct, Chronic pain G89.29 [place] [address] [address] Sep, Chronic pain G89.29 [place] [address] [address] Sep, Hypothyroid E03.9 and Diabet es mellitus E11.9 [place] [address] [address] Aug, Type 2 diabetes mellitus wit h hyperglycemia E11.65 ; 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 ; Essential (primary) hypertension I10 ; Hypothyroid E03.9 ; Neuropathy G62.9 ; Chronic pain G89.29 ; Mixed hy perlipidemia E78.2 and Encounter for immunization Z23 [place] [address] [place] [id number] [address] [place] [address] Aug, Chronic pain G89.29 [place] [address] [place] [id number] [address] [place] [address] Aug, Overactive bladder N32.81 ; Diabetes mellitus E11.9 and Chronic pain G89.29 [place] [address] [place] [id number] [place] [address] Jul, [facility] [place] [address] [facility] [id number] [address] [place] [address] Jun, [facility] [place] [address] [facility] [id number] [address] [place] [address] Jun, [facility] [place] [address] [facility] [id number] [address] [place] [address] Jun, Hypothyroid E03.9 [facility] [place] [address] [facility] [id number] [address] [place] [address] Jun, Diabetes mellitus E11.9 ; Hy pothyroid E03.9 ; Neuropathy G62.9 ; Chronic pain G89.29 and Neck mass R22.1 [facility] [place] [address] [facility] [id number] [address] [place] [address] Apr, [facility] [place] [address] [facility] [id number] [address] [place] [address] Apr, Acute cystitis without hemat uria N30.00 [facility] [place] [address] [facility] [id number] [address] [place] [phone] March, [facility] [place] [address] [facility] [id number] [address] [place] [address] March, [facility] [place] [address] [facility] [id number] [address] [place] [address] March, Near syncope R55 [facility] [place] [address] [facility] [id number] [address] [place] [address] Feb, [facility] [place] [address] [facility] [id number] [address] [place] [address] Feb, Chronic pain G89.29 [facility] [place] [address] [facility] [id number] [address] [place] [address] Feb, [facility] [place] [address] [facility] [id number] [address] [place] [address] Feb, [facility] [place] [address] [place] [id number] [address] [place] [address] Jan, Chronic pain G89.29 [facility] [place] [address] [address] Jan, [facility] [place] [address] [address] 16 Jan, 2017 [facility] [place] [address] [address] 14 Jan, 2017 Diabetes mellitus E11.9 ; Hy pothyroid E03.9 ; GERD (gastroesophageal reflux disease) K21.9 ; Insomnia G47.00 ; Functional 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 ; Neuropathy G62.9 ; Depression F32.9 ; Chronic pain G89.29 ; Irritable bowel syndrome with diarrhea K58.0 ; Overactive bladder N32.81 ; Mixed hyperlipidemia E78.2 and Bronchitis J40 [facility] [place] [address] [address] Dec, [facility] [place] [address] [place] [id number] [address] [place] [address] Dec, [facility] [place] [address] [address] Dec, [facility] [place] [address] [place] [id number] [address] [place] [address] Dec, [facility] [place] [address] [place] [id number] [address] [place] [address] Dec, Chronic pain G89.29 [facility] [place] [address] [place] [id number] [address] [place] [address] Dec, [facility] [place] [address] [place] [id number] [address] [place] [address] Dec, [facility] [place] [address] [place] [id number] [address] [place] [address] Dec, Type 2 diabetes mellitus wit h foot ulcer E11.621 [place] [address] [place] [id number] [address] [place] [address] 17 Dec, 2016 Type 2 diabetes mellitus wit h foot ulcer E11.621 [place] [address] [place] [id number] [place] [address] 14 Dec, 2016 HTN (hypertension) I10 ; Dep ression F32.9 ; Type 2 diabetes mellitus with foot ulcer E11.621 ; Functional diarrhea K59.1 ; Irritable bowel syndrome with diarrhea K58.0 ; Chronic pain G89.29 ; Insomnia G47.00 ; Overactive bladder N32.81 ; Mixed hyperlipidemia E78.2 ; Gastroesophageal reflux disease with esophagitis K21.0 and Acquired hypothyroidism E03.9 [place] [address] [address] Nov, [place] [address] [address] Oct, [place] [address] [address] Oct, [place] [address] [address] Oct, [place] [address] [address] Sep, Functional diarrhea K59.1 ; HTN (hypertension) I10 ; Diabetes mellitus E11.9 ; Depression F32.9 ; Overactive bladder N32.81 ; Mixed hyperlipidemia E78.2 ; Gastroesophageal reflux disease without esophagitis K21.9 ; Chronic pain G89.29 ; Insomnia G47.00 and Acquired hypothyroidism E03.9 [place] [address] [address] Sep, [place] [address] [address] Aug, Encounter for immunization Z 23 [place] [address] [address] Aug, [place] [address] [address] Jul, [place] [address] [address] Jun, Type 2 diabetes mellitus wit hout complications E11.9 ; HTN (hypertension) I10 ; Hypothyroid E03.9 ; Neuropathy G62.9 ; Depression F32.9 ; Chronic pain G89.29 ; GERD (gastroesophageal reflux disease) K21.9 ; Insomnia G47.00 ; Overactive bladder N32.81 ; Mixed hyperlipidemia E78.2 ; Diarrhea of infectious origin A09 and Environmental allergies Z91.09 [place] [address] [address] Apr, [place] [address] [address] March, Hypothyroidism, unspecified E03.9 and Mixed hyperlipidemia E78.2 [place] [address] [address] March, Diabetes mellitus E11.9 ; HT N (hypertension) I10 ; Hypothyroid E03.9 ; Depression F32.9 ; Overactive bladder N32.81 ; Other chronic pain G89.29 ; Lumbago with sciatica, unspecified side M54.40 ; Environmental allergies Z91.09 and Gastroesophageal reflux disease, esophagitis presence not specified K21.9 [place] [address] [address] March, [place] [address] [address] Jan, HTN (hypertension) I10 ; Hyp othyroid E03.9 ; Neuropathy G62.9 ; Diabetes mellitus E11.9 ; Chronic pain G89.29 ; GERD (gastroesophageal reflux disease) K21.9 ; Overactive bladder N32.81 and Depression F32.9 [place] [address] [address] Dec, Ear pain, left H92.02 ; HTN (hypertension) I10 ; Hypothyroid E03.9 ; Neuropathy G62.9 ; Diabetes mellitus E11.9 ; Depression F32.9 ; GERD (gastroesophageal reflux disease) K21.9 ; Insomnia G47.00 and Overactive bladder N32.81 [place] [address] [place] [address] Nov, Overactive bladder N32.81 an d Chronic pain G89.29 [place] [address] [place] [id number] [place] [address] Nov, Kidney failure N19 [place] [address] [place] [id number] [place] [address] Nov, [place] [address] [place] [id number] [address] [place] [address] Nov, [place] [address] [address] Nov, Diabetes mellitus E11.9 ; De pression F32.9 ; Chronic pain G89.29 ; GERD (gastroesophageal reflux disease) K21.9 ; Insomnia G47.00 ; HTN (hypertension) I10 ; Hypothyroid E03.9 ; COPD (chronic obstructive pulmonary disease) J44.9 ; Bladder incontinence R32 and Incontinence R32 [place] [address] [place] [address] Sep, Type 2 diabetes mellitus wit h foot ulcer E11.621 and Chromosomal abnormality, 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 [place] [address] [place] [id number] [address] [place] [address] Sep, [place] [address] [place] [id number] [place] [address] Aug, [place] [address] [place] [id number] [address] [place] [address] Aug, [place] [address] [place] [id number] [place] [address] Aug, HTN (hypertension) I10 ; Enc ounter for immunization Z23 ; Hypothyroid E03.9 ; Neuropathy G62.9 ; Diabetes mellitus E11.9 ; Depression F32.9 ; Chronic pain G89.29 ; GERD (gastroesophageal reflux disease) K21.9 ; Insomnia G47.00 and COPD (chronic obstructive pulmonary disease) J44.[address] [address] Jun, [address] [address] Jun, [address] [address] May, Essential hypertension, ivis gn 401.1 ; Unspecified hypothyroidism 244.9 ; Insomnia, unspecified 780.52 ; Shortness of breath 786.05 ; Depression 311 ; COPD (chronic obstructive pulmonary disease) 496 ; GERD (gastroesophageal reflux disease) 530.81 and Diabetes 1.5, 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 [address] May, [address] [address] May, [address] [address] May, Shortness of breath 786.05 ; Essential hypertension, benign 401.1 ; Diabetes mellitus 250.00 ; Hyperlipidemia 272.4 ; Hypothyroid 244.9 ; Insomnia 780.52 and Cough 786.[address] [address] Apr, [address] [address] March, Shortness of breath 786.05 ; Nausea with vomiting 787.01 ; Essential hypertension, benign 401.1 ; Diabetes mellitus 250.00 ; Hyperlipidemia 272.4 and Hypothyroid 244.[address] [address] 14 Feb, 2015 [facility] [address] [id number] [address] [place] [address], [place] [address] Feb, [facility] [address] [id number] [address] [place] [address], [place] [address] Jan, [facility] [address] [id number] [address] [place] [address], [place] [address] Jan, [facility] [place] [facility] [address] [id number] [address] [place] [address], [place] [address] Jan, [facility] [address] [id number] [address] [place] [address], [place] [address] Jan, [facility] [address] [id number] [address] [place] [address], [place] [address] Jan, [facility] [address] [id number] [address] [place] [address], [place] [address] Jan, [facility] [address] [id number] [address] [place] [address], [place] [address] Jan, [facility] [address] [id number] [address] [place] [address], [place] [address] Jan, [facility] [address] [id number] [address] [place] [address], [place] [address] Jan, [facility] [address] [id number] [address] [place] [address], [place] [address] Jan, [facility] [place] [facility] [address] [id number] [address] [place] [address], [place] [address] Dec, [facility] [place] [facility] [address] [id number] [address] [place] [address], [place] [address] Dec, [facility] [place] [facility] [address] [id number] [address] [place] [address], [place] [address] Dec, [facility] [place] [facility] [address] [id number] [address] [place] [address], [place] [address] Dec, [facility] [place] [facility] [address] [id number] [address] [place] [address], [place] [address] Dec, 2014 [facility] [address] [id number] [address] [place] [address], [place] [address] Dec, 2014 [facility] [address] [id number] [address] [place] [address], [place] [address] Dec, 2014 [facility] [place] [facility] [address] [id number] [address] [place] [address], [place] [address] Dec, 2014 [facility] [address] [id number] [address] [place] [address], [place] [address] Dec, 2014 [facility] [address] [id number] [address] [place] [address], [place] [address] Dec, 2014 [facility] [address] [id number] [address] [place] [address], [place] [address] Oct, [facility] [address] [id number] [address] [place] [address], [place] [address] Oct, [facility] [address] [id number] [address] [place] [address], [place] [address] Oct, [facility] [address] [id number] [address] [place] [address], [place] [address] Oct, [facility] [address] [id number] [address] [place] [id number] Oct, [facility] [address] [id number] [address] [place] [id number] Oct, [facility] [address] [id number] [address] [place] [address], [place] [address] Oct, [facility] [address] [id number] [address] [place] [address], [place] [address] Oct, [facility] [address] [id number] [address] [place] [id number] Oct, [facility] [address] [id number] [address] [place] [address], [place] [address] Oct, [facility] [address] [id number] [address] [place] [address], [place] [address] Oct, [facility] [address] [id number] [address] [place] [address], [place] [address] Oct, [facility] [address] [id number] [address] [place] [address], [place] [address] Oct, [facility] [address] [id number] [address] [place] [address], [place] [address] Oct, [facility] [address] [id number] [address] [place] [address], [place] [address] Sep, [facility] [address] [id number] [address] [place] [address], [place] [address] Sep, [facility] [address] [id number] [address] [place] [address], [place] [address] Sep, [facility] [address] [id number] [address] [place] [address], [place] [address] Sep, [facility] [address] [id number] [address] [place] [address], [place] [address] Sep, [facility] [address] [id number] [address] [place] [address], [place] [address] Sep, [facility] [address] [id number] [address] [place] [address], [place] [address] Sep, [facility] [address] [id number] [address] [place] [address], [place] [address] Sep, [facility] [address] [id number] [address] [place] [address], [place] [address] Sep, [facility] [address] [id number] [address] [place] [address], [place] [address] Aug, [facility] [address] [id number] [address] [place] [address], [place] [address] Aug, [facility] [address] [id number] [address] [place] [address], [place] [address] 17 Aug, 2013 [facility] [address] [address] [id number] [address] [place] [address], [place] [address] 17 Aug, 2014 [facility] [address] [id number] [address] [place] [address], [place] [address] 16 Aug, 2013 [facility] [address] [id number] [address] [place] [address], [place] [address] Aug, [facility] [address] [id number] [address] [place] [address], [place] [address] Aug, [facility] [address] [id number] [address] [place] [address], [place] [address] Aug, [facility] [address] [id number] [address] [place] [address], [place] [address] Aug, [facility] [address] [id number] [address] [place] [address], [place] [address] 29 Jul, 2013 [facility] [address] [id number] [address] [place] [address], [place] [address] 29 Sep, 2013 [facility] [address] [id number] [address] [place] [address], [place] [address] 25 Sep, 2013 [facility] [address] [id number] [address] [place] [address], [place] [address] 25 Sep, 2013 [facility] [address] [id number] [address] [place] [address], [place] [address] 25 Sep, 2013 [facility] [address] [id number] [address] [place] [address], [place] [address] 25 Sep, 2013 [facility] [address] [id number] [address] [place] [address], [place] [address] 25 Jul, 2013 [facility] [address] [id number] [address] [place] [address], [place] [address] 25 Jul, 2013 [facility] [address] [id number] [address] [place] [address], [place] [address] Jul, [facility] [address] [id number] [facility] [place] [address] Jul, [facility] [address] [id number] [facility] [place] [address] Jun, [facility] [address] [id number] [facility] [place] [address] Jun, [facility] [address] [id number] [address] [place] [address], [place] [address] Jun, [facility] [address] [id number] [facility] [place] [address] Jun, [facility] [address] [id number] [address] [place] [address], [place] [address] Jun, [facility] [address] [id number] [address] [place] [address], [place] [address] Jun, [facility] [address] [id number] [address] [place] [address], [place] [address] Jun, [facility] [address] [id number] [address] [place] [address], [place] [address] Jun, [facility] [address] [id number] [address] [place] [address], [place] [address] Jun, [facility] [address] [id number] [address] [place] [address], [place] [address] Jun, [facility] [address] [id number] [address] [place] [address], [place] [address] Jun, [facility] [address] [id number] [address] [place] [address], [place] [address] Jun, [facility] [address] [id number] [address] [place] [address], [place] [address] May, [facility] [address] [id number] [address] [place] [address], [place] [address] May, [facility] [address] [id number] [facility] [place] [address] May, [facility] [address] [id number] [address] [place] [address], [place] [address] May, [facility] [address] [id number] [address] [place] [address], [place] [address] May, [facility] [address] [id number] [address] [place] [address], [place] [address] May, [facility] [address] [id number] [address] [place] [address], [place] [address] March, [facility] [address] [id number] [address] [place] [address], [place] [address] March, [facility] [address] [id number] [address] [place] [address], [place] [address] March, [facility] [address] [id number] [address] [place] [address], [place] [address] March, [facility] [address] [id number] [address] [place] [address], [place] [address] March, [facility] [address] [id number] [address] [place] [address], [place] [address] March, [facility] [address] [id number] [address] [place] [address], [place] [address] Feb, [facility] [address] [id number] [address] [place] [address], [place] [address] Feb, [facility] [address] [id number] [address] [place] [address], [place] [address] Feb, [facility] [address] [id number] [address] [place] [address], [place] [address] Feb, [facility] [address] [id number] [address] [place] [address], [place] [address] Jan, [facility] [address] [id number] [address] [place] [address], [place] [address] Jan, [facility] [address] [id number] [facility] [place] [address] Jan, [facility] [address] [id number] [facility] [place] [address] Jan, [facility] [address] [id number] [facility] [place] [address] Jan, [facility] [address] [id number] [address] [place] [address], [place] [address] Jan, [facility] [address] [id number] [address] [place] [address], [place] [address] Jan, [facility] [address] [id number] [address] [place] [address], [place] [address] Jan, [facility] [address] [id number] [address] [place] [address], [place] [address] Jan, [facility] [address] [id number] [address] [place] [address], [place] [address] Jan, [facility] [address] [id number] [address] [place] [address], [place] [address] Jan, [facility] [address] [id number] [address] [place] [address], [place] [address] Jan, [facility] [address] [id number] [address] [place] [address], [place] [address] Dec, [facility] [address] [id number] [address] [place] [address], [place] [address] Dec, [facility] [address] [id number] [address] [place] [address], [place] [address] Dec, [facility] [address] [id number] [address] [place] [address], [place] [address] Dec, [facility] [address] [id number] [address] [place] [address], [place] [address] Dec, [facility] [address] [id number] [address] [place] [address] Dec, [facility] [address] [id number] [address] [place] [address], [place] [address] Nov, [facility] [address] [id number] [address] [place] [address], [place] [address] Nov, [facility] [address] [id number] [address] [place] [address], [place] [address] Oct, [facility] [address] [id number] [address] [place] [address], [place] [address] Oct, [facility] [address] [id number] [address] [place] [address], [place] [address] Oct, [facility] [address] [id number] [address] [place] [address], [place] [address] Oct, [facility] [address] [id number] [address] [place] [address], [place] [address] Oct, [facility] [address] [id number] [address] [place] [address], [place] [address] Oct, [facility] [address] [id number] [address] [place] [address], [place] [address] Sep, [facility] [address] [id number] [address] [place] [address], [place] [address] Sep, [facility] [address] [id number] [address] [place] [address], [place] [address] Sep, [facility] [address] [id number] [address] [place] [address], [place] [address] Sep, [facility] [address] [id number] [address] [place] [address], [place] [address] Aug, [facility] [address] [id number] [address] [place] [address], [place] [address] Aug, [facility] [address] [id number] [address] [place] [address] Aug, [facility] [address] [id number] [address] [place] [address], [place] [address] 17 Jul, 2013 [facility] [address] [id number] [address] [place] [address], [place] [address] 14 Jul, 2013 [facility] [address] [id number] [address] [place] [address], [place] [address] 04 Jul, 2013 [facility] [address] [id number] [address] [place] [address], [place] [address] Jun, [facility] [address] [id number] [address] [place] [address], [place] [address] Jun, [facility] [address] [id number] [address] [place] [address], [place] [address] Jun, [facility] [address] [id number] [address] [place] [address], [place] [address] Apr, [facility] [address] [id number] [address] [place] [address], [place] [address] Apr, [facility] [address] [id number] [address] [place] [address], [place] [address] March, [facility] [address] [id number] [address] [place] [address], [place] [address] March, [facility] [address] [id number] [address] [place] [address], [place] [address] March, [facility] [address] [id number] [address] [place] [address], [place] [address] March, [facility] [address] [id number] [address] [place] [address], [place] [address] Feb, [facility] [address] [id number] [address] [place] [address], [place] [address] Jan, [facility] [address] [id number] [address] [place] [address], [place] [address] Dec, [facility] [address] [id number] [address] [place] [address], [place] [address] 08 Dec, 2012 [facility] [address] [id number] [address] [place] [address], [place] [address] Dec, [facility] [address] [id number] [address] [place] [address], [place] [address] Nov, [facility] [address] [id number] [address] [place] [address], [place] [address] Oct, [facility] [address] [id number] [address] [place] [address], [place] [address] Oct, [facility] [address] [id number] [address] [place] [address], [place] [address] Sep, [facility] [address] [id number] [address] [place] [address], [place] [address] Sep, [facility] [address] [id number] [address] [place] [address], [place] [address] Sep, [facility] [address] [id number] [address] [place] [address], [place] [address] Sep, [facility] [address] [id number] [address] [place] [address], [place] [address] Sep, [facility] [address] [id number] [address] [place] [address], [place] [address] Sep, [facility] [address] [id number] [address] [place] [address], [place] [address] Sep, [facility] [address] [id number] [address] [place] [address], [place] [address] Aug, [facility] [address] [id number] [address] [place] [address], [place] [address] Aug, [facility] [address] [id number] [address] [place] [address], [place] [address] Aug, [facility] [address] [id number] [address] [place] [address], [place] [address] Aug, [facility] [address] [id number] [address] [place] [address], [place] [address] 08 Aug, 2012 [facility] [address] [id number] [address] [place] [address], [place] [address] 08 Aug, 2012 [facility] [address] [id number] [address] [place] [address], [place] [address] Aug, [facility] [address] [id number] [address] [place] [address], [place] [address] Aug, [facility] [address] [id number] [address] [place] [address], [place] [address] Jul, [facility] [address] [id number] [address] [place] [address], [place] [address] Jul, [facility] [address] [id number] [address] [place] [address], [place] [address] Jun, [facility] [address] [id number] [address] [place] [address], [place] [address] May, [facility] [address] [id number] [address] [place] [address], [place] [address] Apr, [facility] [address] [id number] [address] [place] [address], [place] [address] Apr, [facility] [address] [id number] [address] [place] [address], [place] [address] Apr, [facility] [address] [id number] [address] [place] [address], [place] [address] March, [facility] [address] [id number] [address] [place] [address], [place] [address] March, [facility] [address] [id number] [address] [place] [address], [place] [address] March, [facility] [address] [id number] [address] [place] [address], [place] [address] March, [facility] [address] [id number] [address] [place] [address], [place] [address] March, [facility] [address] [id number] [address] [place] [address], [place] [address] March, [facility] [address] [id number] [address] [place] [address], [place] [address] March, [facility] [address] [id number] [address] [place] [address], [place] [address] Jan, [facility] [address] [id number] [address] [place] [address], [place] [address] Jan, [facility] [address] [id number] [address] [place] [address], [place] [address] Jan, [facility] [address] [id number] [address] [place] [address], [place] [address] Jan, [facility] [address] [id number] [address] [place] [address], [place] [address] Jan, [facility] [address] [id number] [address] [place] [address], [place] [address] Dec, [facility] [address] [id number] [address] [place] [address], [place] [address] Dec, [facility] [address] [id number] [address] [place] [address], [place] [address] Nov, [facility] [address] [id number] [address] [place] [address], [place] [address] Nov, [facility] [address] [id number] [address] [place] [address], [place] [address] Nov, [facility] [address] [id number] [address] [place] [address], [place] [address] Nov, [facility] [address] [id number] [address] [place] [address], [place] [address] Oct, [facility] [address] [id number] [address] [place] [address], [place] [address] Oct, [facility] [address] [id number] [address] [place] [address], [place] [address] 14 Sep, 2011 [facility] [address] [id number] [address] [place] [address], [place] [address] 10 Sep, 2011 [facility] [address] [id number] [address] [place] [address], [place] [address] 10 Sep, 2011 [facility] [address] [id number] [address] [place] [address], [place] [address] 11 May, 2011 [facility] [address] [id number] [address] [place] [address], [place] [address] 20 Nov, 2010 [facility] [address] [id number] [address] [place] [address], [place] [address] 29 Oct, 2010 [facility] [address] [id number] [address] [place] [address], [place] [address] 14 Oct, 2010 [facility] [address] [id number] [address] [place] [address], [place] [address] 08 Oct, 2010 [facility] [address] [id number] [address] [place] [address], [place] [address] 15 Sep, 2010 [facility] [address] [id number] [address] [place] [address], [place] [address] 02 Sep, 2010 [facility] [address] [id number] [address] [place] [address], [place] [address] Aug, [facility] [address] [id number] [address] [place] [address], [place] [address] March, [facility] [address] [id number] [address] [place] [address], [place] [address] 17 Oct, 2009 [facility] [address] [id number] [address] [place] [address], [place] [address] Oct, [facility] [address] [id number] [address] [place] [address], [place] [address] Oct, [facility] [address] [id number] [address] [place] [address], [place] [address] Oct, [facility] [place] [address] [facility] [id number] [address] [place] [address] Sep, [facility] [place] [address] [facility] [id number] [address] [place] [address] Sep, [facility] [place] [address] [facility] [id number] [address] [place] [address] Sep, [facility] [place] [address] [facility] [id number] [address] [place] [address] Aug, [facility] [place] [address] [facility] [id number] [address] [place] [address] Aug, [facility] [place] [address] [facility] [id number] [address] [place] [address] Aug, [facility] [place] [address] [facility] [id number] [address] [place] [address] Jan, IMMUNIZATIONS No Known Immunizations SOCIAL HISTORY Never Assessed REASON FOR VISIT Refill request PLAN OF CARE VITAL SIGNS MEDICATIONS No [...]
--- OUTSIDE RECORDS SUMMARY | 2020-06-13 16:27 | XMS REPORT ---
Author Author Jah PARKER Organization [facility] Address [address] [place] [address] Care Team Providers Care Digital Photographic Printer Name Role Phone PARKERPATRICIA Mckeon Unavailable PROBLEMS Type Condition ICD9-CM Code [id number] Code Onset Dates Condition S tatus SNOMED Code Problem half-way current use of insulin Z79.4 Active 640891954 Problem Essential (primary) hypertension I10 Active 85058828 Problem Type 2 diabetes mellitus with hyperglycemia E11.65 Active 98318198 Problem Major depressive disorder, recurrent episode, moderate F33.1 Active 484278852 Problem Anxiety disorder, unspecified type F41.9 Active 328913707 Problem Current non-adherence to medical treatment Z91.19 Active 6946691 Problem Pulmonary emphysema, unspecified emphysema type J4 3.9 Active 27327222 Problem Chronic fatigue R53.82 Active 8422 9001 Problem Recurrent major depressive disorder, in partial remission F33.41 Active 04640011 Problem Thrombocytosis D47.3 Active 45615 09 Problem Chronic pain G89.29 Active 6839885 1 Problem Overactive bladder N32.81 Active 2 38692402 Problem Mixed hyperlipidemia E78.2 Active 014955786 Problem Neuropathy G62.9 Active 048235833 Problem Gastroesophageal reflux disease with esophagitis K 21.0 Active 235814614 Problem Hypothyroid E03.9 Active 31949186 Problem Irritable bowel syndrome with diarrhea K58.0 Active 119042325 ALLERGIES No Information ENCOUNTERS Encounter Location Date Diagnosis [facility] [address] [facility] [id number] [address] [place] [id number] Jun, [facility] [address] [facility] [id number] [address] [place] [id number] Jun, Hypothyroid E03.9 [facility] [address] [facility] [id number] [address] [place] [address] Jun, Major depressive disorder, r ecurrent episode, moderate F33.1 and Anxiety disorder, unspecified type F41.9 [place] [address] [address] [facility] [id number] [address] [place] [id number] Jun, [place] [address] [address] [facility] [id number] [address] [place] [address] Jun, Type 2 diabetes mellitus wit h hyperglycemia E11.65 ; half-way current use of insulin Z79.4 ; Recurrent major depressive disorder, in partial remission F33.41 ; Hypothyroid E03.9 ; Candidal dermatitis B37.2 and Weakness generalized R53.1 [place] [address] [address] [facility] [id number] [address] [place] [phone] May, [place] [address] [address] [facility] [id number] [address] [place] [phone] May, [place] [address] [address] [place] [id number] [address] [place] [id number] May, [place] [address] [address] [place] [id number] [address] [place] [address] May, Generalized abdominal pain R 10.84 and Candidal dermatitis B37.2 [place] [address] [address] [facility] [id number] [address] [place] [id number] May, [place] [address] [address] [place] [id number] [address] [place] [phone] May, [place] [address] [address] [place] [id number] [address] [place] [id number] May, Nodular radiologic density R 93.8 ; Weight loss, unintentional R63.4 and Pulmonary emphysema, unspecified emphysema type J43.9 [place] [address] [address] [facility] [id number] [address] [place] [address] May, Chronic pain G89.29 [place] [address] [address] [place] [id number] [address] [place] [id number] May, Syncope and collapse R55 ; C hronic fatigue R53.[address] lung screening R91.8 [facility] [address] [facility] [id number] [address] [place] [id number] May, [facility] [address] [place] [id number] [address] [place] [address] Apr, Chronic fatigue R53.82 ; Abn ormal chest CT R93.8 ; Elevated erythrocyte sedimentation rate R70.0 ; Hypothyroid E03.9 and Recurrent major depressive disorder, in partial remission F33.41 [facility] [address] [place] [id number] [address] [place] [phone] Apr, Hypothyroid E03.9 [place] [address] [address] [facility] [id number] [address] [place] [id number] Apr, Depression F32.9 [facility] [address] [facility] [id number] [address] [place] [id number] Apr, [place] [address] [place] [address] March, [facility] [address] [place] [id number] [address] [place] [address] March, Hypothyroid E03.9 [place] [address] [address] [place] [id number] [address] [place] [id number] March, Diabetes mellitus E11.9 and Hypothyroid E03.9 [place] [address] [place] [address] March, Diabetes mellitus E11.9 [facility] [address] [place] [id number] [address] [place] [phone] March, Hypothyroid E03.9 and Elevat ed liver enzymes R74.8 [place] [address] [address] [facility] [id number] [address] [place] [address] March, Type 2 diabetes mellitus wit h hyperglycemia E11.65 ; emt 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 current use of insulin Z79.4 ; Pulmonary emphysema, unspecified emphysema type J43.9 ; Hypothyroid E03.9 ; Neuropathy G62.9 ; Mixed hyperlipidemia E78.2 ; Chronic pain G89.29 ; Gastroesophageal reflux disease with esophagitis K21.0 ; Irritable bowel syndrome with diarrhea K58.0 ; Overactive bladder N32.81 and Recurrent major depressive disorder, in partial remission F33.41 [place] [address] [place] [address] Feb, Chronic pain G89.29 [place] [address] [address] [place] [id number] [address] [place] [address] Feb, Type 2 diabetes mellitus wit h hyperglycemia E11.65 and Skin lesion of scalp L98.9 [place] [address] [address] [place] [id number] [address] [place] [phone] Feb, [place] [address] [place] [id number] [place] [address] Jan, Type 2 diabetes mellitus wit h hyperglycemia E11.65 ; emt 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 current use of insulin Z79.4 ; Essential (primary) hypertension I10 ; Pulmonary emphysema, unspecified emphysema type J43.9 ; Chronic pain G89.29 ; Controlled substance agreement signed Z79.899 ; Hypothyroid E03.9 ; Neuropathy G62.9 ; Gastroesophageal reflux disease with esophagitis K21.0 ; Overactive bladder N32.81 ; Depression F32.9 and Irritable bowel syndrome with diarrhea K58.0 [place] [address] [address] [place] [id number] [address] [place] [address] Jan, [place] [address] [place] [address] Jan, Controlled substance agreeme nt signed Z79.899 [place] [address] [facility] [id number] [address] [place] [id number] Dec, Type 2 diabetes mellitus wit h hyperglycemia E11.65 ; Controlled substance agreement signed Z79.899 ; half-way current use of insulin Z79.4 ; Essential (primary) hypertension I10 ; Hypothyroid E03.9 ; Neuropathy G62.9 ; Depression F32.9 ; Mixed hyperlipidemia E78.2 ; Irritable bowel syndrome with diarrhea K58.0 ; Gastroesophageal reflux disease with esophagitis K21.0 ; Thrombocytosis D47.3 ; Current non-adherence to medical treatment Z91.19 and Overweight (BMI 25.0-29.9) E66.3 [place] [address] [address] [place] [id number] [address] [place] [address] 02 Dec, 2017 Controlled substance agreeme nt signed Z79.899 [place] [address] [address] Nov, Type 2 diabetes mellitus wit h hyperglycemia E11.65 and Current non- adherence to medical treatment Z91.19 [place] [address] [address] Nov, [place] [address] [address] Nov, Chronic pain G89.29 [place] [address] [address] Nov, [place] [address] [address] Nov, Hypothyroid E03.9 [place] [address] [address] Nov, Hypothyroid E03.9 [place] [address] [address] Nov, Pulmonary emphysema, unspeci fied emphysema type J43.9 and Irritable bowel syndrome with diarrhea K58.0 [place] [address] [address] [place] [id number] [address] [place] [address] Oct, [place] [address] [address] Oct, [place] [address] [address] [place] [id number] [address] [place] [address] Oct, [place] [address] [address] Oct, [place] [address] [address] [facility] [id number] [address] [place] [address] Oct, Chronic pain G89.29 [place] [address] [address] [facility] [id number] [address] [place] [phone] Oct, Diabetes mellitus E11.9 ; De pression F32.9 ; Mixed hyperlipidemia E78.2 ; Hypotension, unspecified hypotension type I95.9 ; Pulmonary emphysema, unspecified emphysema type J43.9 and Weight loss, unintentional R63.4 [place] [address] [address] [facility] [id number] [address] [place] [phone] Oct, Chronic pain G89.29 [place] [address] [address] [facility] [id number] [address] [place] [address] Sep, Chronic pain G89.29 [place] [address] [address] [place] [id number] [address] [place] [address] Sep, Hypothyroid E03.9 and Diabet es mellitus E11.9 [place] [address] [address] [facility] [id number] [address] [place] [address] Aug, Type 2 diabetes mellitus wit h hyperglycemia E11.65 ; emt 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 current use of insulin Z79.4 ; Essential (primary) hypertension I10 ; Hypothyroid E03.9 ; Neuropathy G62.9 ; Chronic pain G89.29 ; Mixed hy perlipidemia E78.2 and Encounter for immunization Z23 [place] [address] [address] [place] [id number] [address] [place] [address] Aug, Chronic pain G89.29 [place] [address] [address] [place] [id number] [address] [place] [phone] Aug, Overactive bladder N32.81 ; Diabetes mellitus E11.9 and Chronic pain G89.29 [place] [address] [address] [facility] [id number] [address] [place] [id number] Jul, [place] [address] [address] [facility] [id number] [address] [place] [id number] Jun, [place] [address] [id number] [address] [place] [phone] Jun, [facility] [address] [facility] [id number] [address] [place] [address] Jun, Hypothyroid E03.9 [facility] [address] [facility] [id number] [address] [place] [address] Jun, Diabetes mellitus E11.9 ; Hy pothyroid E03.9 ; Neuropathy G62.9 ; Chronic pain G89.29 and Neck mass R22.1 [facility] [address] [id number] [address] [place] [id number] Apr, [facility] [address] [facility] [id number] [address] [place] [address] Apr, Acute cystitis without hemat uria N30.00 [facility] [address] [facility] [id number] [address] [place] [address] March, [facility] [address] [facility] [id number] [address] [place] [id number] March, [facility] [address] [facility] [id number] [address] [place] [phone] March, Near syncope R55 [facility] [address] [facility] [id number] [address] [place] [id number] Feb, [facility] [address] [facility] [id number] [address] [place] [id number] Feb, Chronic pain G89.29 [facility] [address] [id number] [address] [place] [id number] Feb, [facility] [address] [facility] [id number] [address] [place] [id number] Feb, [facility] [address] [facility] [id number] [address] [place] [address] Jan, Chronic pain G89.29 [facility] [address] [facility] [id number] [address] [place] [phone] Jan, [facility] [address] [facility] [id number] [address] [place] [address] Jan, [facility] [address] [address] Jan, Diabetes mellitus E11.9 ; Hy pothyroid E03.9 ; GERD (gastroesophageal reflux disease) K21.9 ; Insomnia G47.00 ; Functional diarrhea K59.1 ; Neuropathy G62.9 ; Depression F32.9 ; Chronic pain G89.29 ; Irritable bowel syndrome with diarrhea K58.0 ; Overactive bladder N32.81 ; Mixed hyperlipidemia E78.2 and Bronchitis J40 [facility] [address] [place] [id number] [address] [place] [id number] Dec, [facility] [address] [address] Dec, [facility] [address] [address] Dec, [facility] [address] [place] [id number] [address] [place] [id number] Dec, [facility] [address] [place] [id number] [address] [place] [address] Dec, Chronic pain G89.29 [facility] [address] [place] [id number] [address] [place] [id number] Dec, [facility] [address] [place] [id number] [address] [place] [id number] Dec, [facility] [address] [place] [id number] [address] [place] [address] Dec, Type 2 diabetes mellitus wit h foot ulcer E11.621 [facility] [address] [place] [id number] [address] [place] [id number] 17 Dec, 2016 Type 2 diabetes mellitus wit h foot ulcer E11.621 [facility] [address] [address] 14 Dec, 2016 HTN (hypertension) I10 ; Dep ression F32.9 ; Type 2 diabetes mellitus with foot ulcer E11.621 ; Functional diarrhea K59.1 ; Irritable bowel syndrome with diarrhea K58.0 ; Chronic pain G89.29 ; Insomnia G47.00 ; Overactive bladder N32.81 ; Mixed hyperlipidemia E78.2 ; Gastroesophageal reflux disease with esophagitis K21.0 and Acquired hypothyroidism E03.9 [place] [address] [address] Nov, [place] [address] [address] Oct, [place] [address] [address] Oct, [address] [address] Oct, [place] [address] [address] [place] [id number] [place] [address] Sep, Functional diarrhea K59.1 ; HTN (hypertension) I10 ; Diabetes mellitus E11.9 ; Depression F32.9 ; Overactive bladder N32.81 ; Mixed hyperlipidemia E78.2 ; Gastroesophageal reflux disease without esophagitis K21.9 ; Chronic pain G89.29 ; Insomnia G47.00 and Acquired hypothyroidism E03.[address] [address] Sep, [place] [id number] [place] [address] Aug, Encounter for immunization Z 23 [place] [id number] [place] [phone] Aug, [place] [address] [place] [id number] [place] [address] Jul, [address] [address] Jun, Type 2 diabetes mellitus wit hout complications E11.9 ; HTN (hypertension) I10 ; Hypothyroid E03.9 ; Neuropathy G62.9 ; Depression F32.9 ; Chronic pain G89.29 ; GERD (gastroesophageal reflux disease) K21.9 ; Insomnia G47.00 ; Overactive bladder N32.81 ; Mixed hyperlipidemia E78.2 ; Diarrhea of infectious origin A09 and Environmental allergies Z91.09 [place] [address] [address] Apr, [place] [address] [address] March, Hypothyroidism, unspecified E03.9 and Mixed hyperlipidemia E78.2 [place] [address] [address] March, Diabetes mellitus E11.9 ; HT N (hypertension) I10 ; Hypothyroid E03.9 ; Depression F32.9 ; Overactive bladder N32.81 ; Other chronic pain G89.29 ; Lumbago with sciatica, unspecified side M54.40 ; Environmental allergies Z91.09 and Gastroesophageal reflux disease, esophagitis presence not specified K21.9 [place] [address] [address] March, [place] [address] [address] Jan, HTN (hypertension) I10 ; Hyp othyroid E03.9 ; Neuropathy G62.9 ; Diabetes mellitus E11.9 ; Chronic pain G89.29 ; GERD (gastroesophageal reflux disease) K21.9 ; Overactive bladder N32.81 and Depression F32.9 [place] [address] [address] Dec, Ear pain, left H92.02 ; HTN (hypertension) I10 ; Hypothyroid E03.9 ; Neuropathy G62.9 ; Diabetes mellitus E11.9 ; Depression F32.9 ; GERD (gastroesophageal reflux disease) K21.9 ; Insomnia G47.00 and Overactive bladder N32.81 [place] [address] [facility] [id number] [address] [place] [address] Nov, Overactive bladder N32.81 an d Chronic pain G89.29 [place] [address] [address] [facility] [id number] [address] [place] [address] Nov, Kidney failure N19 [place] [address] [address] [place] [id number] [address] [place] [address] Nov, [place] [address] [facility] [id number] [address] [place] [id number] Nov, [place] [address] [place] [id number] [place] [address] Nov, Diabetes mellitus E11.9 ; De pression F32.9 ; Chronic pain G89.29 ; GERD (gastroesophageal reflux disease) K21.9 ; Insomnia G47.00 ; HTN (hypertension) I10 ; Hypothyroid E03.9 ; COPD (chronic obstructive pulmonary disease) J44.9 ; Bladder incontinence R32 and Incontinence R32 [place] [address] [address] [place] [id number] [address] [place] [address] Sep, Type 2 diabetes mellitus wit h foot ulcer E11.621 and Chromosomal abnormality, 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 [place] [address] [address] [place] [id number] [address] [place] [phone] Sep, [place] [address] [place] [id number] [address] [place] [id number] Aug, [place] [address] [place] [id number] [address] [place] [address] Aug, [place] [address] [place] [id number] [address] [place] [address] Aug, HTN (hypertension) I10 ; Enc ounter for immunization Z23 ; Hypothyroid E03.9 ; Neuropathy G62.9 ; Diabetes mellitus E11.9 ; Depression F32.9 ; Chronic pain G89.29 ; GERD (gastroesophageal reflux disease) K21.9 ; Insomnia G47.00 and COPD (chronic obstructive pulmonary disease) J44.9 [facility] [address] [address] Jun, [facility] [address] [address] Jun, [facility] [address] [address] May, Essential hypertension, ivis gn 401.1 ; Unspecified hypothyroidism 244.9 ; Insomnia, unspecified 780.52 ; Shortness of breath 786.05 ; Depression 311 ; COPD (chronic obstructive pulmonary disease) 496 ; GERD (gastroesophageal reflux disease) 530.81 and Diabetes 1.5, 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 [place] [address] [address] May, [address] [address] May, [address] [address] May, Shortness of breath 786.05 ; Essential hypertension, benign 401.1 ; Diabetes mellitus 250.00 ; Hyperlipidemia 272.4 ; Hypothyroid 244.9 ; Insomnia 780.52 and Cough 786.[address] [address] Apr, [address] [address] March, Shortness of breath 786.05 ; Nausea with vomiting 787.01 ; Essential hypertension, benign 401.1 ; Diabetes mellitus 250.00 ; Hyperlipidemia 272.4 and Hypothyroid 244.9 [facility] [address] [place] [address] Feb, [facility] [address] [address] Feb, [facility] [address] [id number] [address] [place] [address], [place] [address] Jan, [facility] [address] [id number] [address] [place] [address], [place] [address] Jan, [facility] [address] [id number] [address] [place] [address], [place] [address] Jan, [facility] [address] [id number] [address] [place] [address], [place] [address] Jan, [facility] [address] [id number] [address] [place] [address], [place] [id number] Jan, [facility] [address] [id number] [address] [place] [address], [place] [address] Jan, [facility] [address] [id number] [address] [place] [address], [place] [address] Jan, [facility] [address] [id number] [address] [place] [address], [place] [address] Jan, [facility] [address] [id number] [address] [place] [address], [place] [address] Jan, [facility] [address] [id number] [address] [place] [address], [place] [address] Jan, [facility] [address] [id number] [address] [place] [address], [place] [address] Dec, [facility] [address] [id number] [address] [place] [address], [place] [address] Dec, 2014 [facility] [address] [id number] [address] [place] [address], [place] [address] Dec, 2014 [facility] [address] [id number] [address] [place] [address], [place] [address] Dec, 2014 [facility] [address] [id number] [address] [place] [address], [place] [address] Dec, 2014 [facility] [address] [id number] [address] [place] [address], [place] [address] Dec, 2014 [facility] [address] [id number] [address] [place] [address], [place] [address] Dec, 2014 [facility] [address] [id number] [address] [place] [address], [place] [id number] Dec, 2014 [facility] [address] [id number] [address] [place] [address], [place] [id number] Dec, 2014 [facility] [address] [id number] [address] [place] [address], [place] [id number] Dec, 2014 [facility] [address] [id number] [address] [place] [address], [place] [id number] Oct, [facility] [address] [id number] [address] [place] [address], [place] [id number] Oct, [facility] [address] [id number] [address] [place] [address], [place] [address] Oct, [facility] [address] [id number] [address] [place] [address], [place] [id number] Oct, [facility] [address] [id number] [address] [place] [address], [place] [id number] Oct, [facility] [address] [id number] [address] [place] [address], [place] [id number] Oct, [facility] [address] [id number] [address] [place] [address], [place] [id number] Oct, [facility] [address] [id number] [address] [place] [address], [place] [id number] Oct, [facility] [address] [id number] [address] [place] [address], [place] [id number] Oct, [facility] [address] [id number] [address] [place] [address], [place] [id number] Oct, [facility] [address] [id number] [address] [place] [address], [place] [address] Oct, [facility] [address] [id number] [address] [place] [address], [place] [id number] Oct, [facility] [address] [id number] [address] [place] [address], [place] [id number] Oct, [facility] [address] [id number] [address] [place] [address], [place] [id number] Oct, [facility] [address] [id number] [address] [place] [address], [place] [id number] Sep, [facility] [address] [id number] [address] [place] [address], [place] [id number] Sep, [facility] [facility] [address] [id number] [address] [place] [address], [place] [address] Sep, [facility] [address] [id number] [address] [place] [address], [place] [address] Sep, [facility] [address] [id number] [address] [place] [address], [place] [address] Sep, [facility] [address] [id number] [address] [place] [address], [place] [address] Sep, [facility] [address] [id number] [address] [place] [address], [place] [address] Sep, [facility] [address] [id number] [address] [place] [address], [place] [address] Sep, [facility] [address] [id number] [address] [place] [address], [place] [address] Sep, [facility] [address] [id number] [address] [place] [address], [place] [address] Aug, [facility] [address] [id number] [address] [place] [address], [place] [address] Aug, [facility] [address] [id number] [address] [place] [address], [place] [address] Aug, [facility] [address] [id number] [address] [place] [address], [place] [address] Aug, [facility] [address] [id number] [address] [place] [address], [place] [address] 16 Aug, 2014 [facility] [address] [id number] [address] [place] [address], [place] [address] Aug, [facility] [address] [id number] [address] [place] [address], [place] [address] Aug, [facility] [address] [id number] [address] [place] [address], [place] [address] Aug, [facility] [address] [id number] [address] [place] [address], [place] [address] Aug, [facility] [address] [id number] [address] [place] [address], [place] [address] 29 Jul, 2013 [facility] [address] [id number] [address] [place] [address], [place] [address] 29 Jul, 2013 [facility] [address] [id number] [address] [place] [address], [place] [address] 25 Jul, 2013 [facility] [address] [id number] [address] [place] [address], [place] [address] 25 Jul, 2013 [facility] [address] [id number] [address] [place] [address], [place] [address] Jul, 2013 [facility] [address] [id number] [address] [place] [address], [place] [address] 25 Jul, 2013 [facility] [address] [id number] [address] [place] [address], [place] [address] 25 Jul, 2013 [facility] [address] [id number] [address] [place] [address], [place] [address] 25 Jul, 2013 [facility] [address] [id number] [address] [place] [address], [place] [address] 02 Jul, 2013 [facility] [address] [id number] [address] [place] [address], [place] [address] 02 Jul, 2013 [facility] [address] [id number] [address] [place] [id number] Jun, [facility] [address] [id number] [facility] [place] [address] Jun, [facility] [address] [id number] [facility] [place] [address] Jun, [facility] [address] [id number] [address] [place] [address], [place] [address] Jun, [facility] [address] [id number] [address] [place] [address], [place] [address] Jun, [facility] [address] [id number] [address] [place] [address], [place] [address] Jun, [facility] [address] [id number] [address] [place] [address], [place] [address] Jun, [facility] [address] [id number] [address] [place] [address], [place] [address] Jun, [facility] [address] [id number] [address] [place] [address], [place] [address] Jun, [facility] [address] [id number] [address] [place] [address], [place] [address] Jun, [facility] [address] [id number] [address] [place] [address], [place] [address] Jun, [facility] [address] [id number] [address] [place] [address], [place] [address] Jun, [facility] [address] [id number] [address] [place] [address], [place] [address] May, [facility] [address] [id number] [address] [place] [address], [place] [address] May, [facility] [address] [id number] [address] [place] [address], [place] [address] May, [facility] [address] [id number] [address] [place] [address], [place] [address] May, [facility] [address] [id number] [facility] [place] [address] May, [facility] [address] [id number] [facility] [place] [address] May, [facility] [address] [id number] [address] [place] [address], [place] [address] March, [facility] [address] [id number] [address] [place] [address], [place] [address] March, [facility] [address] [id number] [address] [place] [address], [place] [address] March, [facility] [address] [id number] [address] [place] [address], [place] [address] March, [facility] [address] [id number] [address] [place] [address], [place] [address] March, [facility] [address] [id number] [address] [place] [address], [place] [address] March, [facility] [address] [id number] [address] [place] [address], [place] [address] Feb, [facility] [address] [id number] [address] [place] [address], [place] [address] Feb, [facility] [address] [id number] [address] [place] [address], [place] [address] Feb, [facility] [address] [id number] [address] [place] [address], [place] [address] Feb, [facility] [address] [id number] [address] [place] [address], [place] [address] Jan, [facility] [address] [id number] [address] [place] [address], [place] [address] Jan, [facility] [address] [id number] [address] [place] [address], [place] [address] Jan, [facility] [address] [id number] [address] [place] [address], [place] [address] Jan, [facility] [address] [id number] [facility] [place] [address] Jan, [facility] [address] [id number] [address] [place] [address], [place] [address] Jan, [facility] [address] [id number] [address] [place] [address], [place] [address] Jan, [facility] [address] [id number] [address] [place] [address], [place] [address] Jan, [facility] [address] [id number] [address] [place] [address], [place] [address] Jan, [facility] [address] [id number] [address] [place] [address], [place] [address] Jan, [facility] [address] [id number] [address] [place] [address], [place] [address] Jan, [facility] [address] [id number] [address] [place] [address], [place] [address] Jan, [facility] [address] [id number] [address] [place] [address], [place] [address] Dec, [facility] [address] [id number] [address] [place] [address], [place] [address] Dec, [facility] [address] [id number] [address] [place] [address], [place] [address] Dec, [facility] [address] [id number] [address] [place] [address], [place] [address] Dec, [facility] [address] [id number] [address] [place] [address], [place] [address] Dec, [facility] [address] [id number] [address] [place] [address], [place] [address] Dec, [facility] [address] [id number] [address] [place] [address], [place] [address] Nov, [facility] [address] [id number] [address] [place] [address], [place] [address] Nov, [facility] [address] [id number] [address] [place] [address], [place] [address] Oct, [facility] [address] [id number] [address] [place] [address], [place] [address] Oct, [facility] [address] [id number] [address] [place] [address], [place] [address] Oct, [facility] [address] [id number] [address] [place] [address], [place] [address] Oct, [facility] [address] [id number] [address] [place] [address], [place] [address] Oct, [facility] [address] [id number] [address] [place] [address], [place] [address] Oct, [facility] [address] [id number] [address] [place] [address], [place] [address] Sep, [facility] [address] [id number] [address] [place] [address], [place] [address] Sep, [facility] [address] [id number] [address] [place] [address], [place] [address] Sep, [facility] [address] [id number] [address] [place] [address], [place] [address] Sep, [facility] [address] [id number] [address] [place] [address], [place] [address] Aug, [facility] [address] [id number] [address] [place] [address], [place] [address] Aug, [facility] [address] [id number] [address] [place] [address], [place] [address] Aug, [facility] [address] [id number] [address] [place] [address], [place] [address] 17 Jul, 2013 [facility] [address] [id number] [address] [place] [address], [place] [address] 14 Jul, 2013 [facility] [address] [id number] [address] [place] [address], [place] [address] Jul, [facility] [address] [id number] [address] [place] [address], [place] [address] Jun, [facility] [address] [id number] [address] [place] [address], [place] [address] Jun, [facility] [address] [id number] [address] [place] [address], [place] [address] Jun, [facility] [address] [id number] [address] [place] [address], [place] [address] Apr, [facility] [address] [id number] [address] [place] [address], [place] [address] Apr, [facility] [address] [id number] [address] [place] [address], [place] [address] March, [facility] [address] [id number] [address] [place] [address], [place] [address] March, [facility] [address] [id number] [address] [place] [address], [place] [address] March, [facility] [address] [id number] [address] [place] [address], [place] [address] March, [facility] [address] [id number] [address] [place] [address], [place] [address] Feb, [facility] [address] [id number] [address] [place] [address], [place] [address] Jan, [facility] [address] [id number] [address] [place] [address], [place] [address] Dec, [facility] [address] [id number] [address] [place] [address], [place] [address] Dec, [facility] [address] [id number] [address] [place] [address], [place] [address] Dec, [facility] [address] [id number] [address] [place] [address], [place] [address] Nov, [facility] [address] [id number] [address] [place] [address], [place] [address] Oct, [facility] [address] [id number] [address] [place] [address], [place] [address] Oct, [facility] [address] [id number] [address] [place] [address], [place] [address] Sep, [facility] [address] [id number] [address] [place] [address], [place] [address] Sep, [facility] [address] [id number] [address] [place] [address], [place] [address] Sep, [facility] [address] [id number] [address] [place] [address], [place] [address] Sep, [facility] [address] [id number] [address] [place] [address], [place] [address] Sep, [facility] [address] [id number] [address] [place] [address], [place] [address] Sep, [facility] [address] [id number] [address] [place] [address], [place] [address] Sep, [facility] [address] [id number] [address] [place] [address], [place] [address] Aug, [facility] [address] [id number] [address] [place] [address], [place] [address] Aug, [facility] [address] [id number] [address] [place] [address], [place] [address] Aug, [facility] [address] [id number] [address] [place] [address], [place] [address] Aug, [facility] [address] [id number] [address] [place] [address], [place] [address] Aug, [facility] [address] [id number] [address] [place] [address], [place] [address] Aug, [facility] [address] [id number] [address] [place] [address], [place] [address] Aug, [facility] [address] [id number] [address] [place] [address], [place] [address] Aug, [facility] [address] [id number] [address] [place] [address], [place] [address] Jul, [facility] [address] [id number] [address] [place] [address], [place] [address] Jul, [facility] [address] [id number] [address] [place] [address], [place] [address] Jun, [facility] [address] [id number] [address] [place] [address], [place] [address] May, [facility] [address] [id number] [address] [place] [address], [place] [address] Apr, [facility] [address] [id number] [address] [place] [address], [place] [address] Apr, [facility] [address] [id number] [address] [place] [address], [place] [address] Apr, [facility] [address] [id number] [address] [place] [address], [place] [address] March, [facility] [address] [id number] [address] [place] [address], [place] [address] March, [facility] [address] [id number] [address] [place] [address], [place] [address] March, [facility] [address] [id number] [address] [place] [address], [place] [address] March, [facility] [address] [id number] [address] [place] [address], [place] [address] March, [facility] [address] [id number] [address] [place] [address], [place] [address] March, [facility] [address] [id number] [address] [place] [address], [place] [address] March, [facility] [address] [id number] [address] [place] [address], [place] [address] Jan, [facility] [address] [id number] [address] [place] [address], [place] [address] Jan, [facility] [address] [id number] [address] [place] [address], [place] [address] Jan, [facility] [address] [id number] [address] [place] [address], [place] [address] Jan, [facility] [address] [id number] [address] [place] [address], [place] [address] Jan, [facility] [address] [id number] [address] [place] [address], [place] [address] 08 Dec, 2011 [facility] [address] [id number] [address] [place] [address], [place] [address] Dec, [facility] [address] [id number] [address] [place] [address], [place] [address] Nov, [facility] [address] [id number] [address] [place] [address], [place] [address] Nov, [facility] [address] [id number] [address] [place] [address], [place] [address] Nov, [facility] [address] [id number] [address] [place] [address], [place] [address] Nov, [facility] [address] [id number] [address] [place] [address], [place] [address] Oct, [facility] [address] [id number] [address] [place] [address], [place] [address] Oct, [facility] [address] [id number] [address] [place] [address], [place] [address] 14 Sep, 2011 [facility] [address] [id number] [address] [place] [address], [place] [address] 10 Sep, 2011 [facility] [address] [id number] [address] [place] [address], [place] [address] 10 Sep, 2011 [facility] [address] [id number] [address] [place] [address], [place] [address] 11 May, 2011 [facility] [address] [id number] [address] [place] [address], [place] [address] Nov, [facility] [address] [id number] [address] [place] [address], [place] [address] 29 Oct, 2010 [facility] [address] [id number] [address] [place] [address], [place] [address] 14 Oct, 2010 [facility] [address] [id number] [address] [place] [address], [place] [address] 08 Oct, 2010 [facility] [address] [id number] [address] [place] [address], [place] [address] 15 Sep, 2010 [facility] [address] [id number] [address] [place] [address], [place] [address] Sep, [facility] [address] [id number] [address] [place] [address], [place] [id number] Aug, [facility] [address] [id number] [address] [place] [address], [place] [id number] March, [facility] [address] [id number] [address] [place] [address], [place] [id number] 17 Oct, 2009 [facility] [address] [id number] [address] [place] [address], [place] [id number] 17 Oct, 2009 [facility] [address] [id number] [address] [place] [address], [place] [id number] 10 Oct, 2009 [facility] [address] [id number] [address] [place] [address], [place] [id number] Oct, [facility] [address] [id number] [address] [place] [address], [place] [id number] Sep, [facility] [address] [id number] [address] [place] [address], [place] [id number] Sep, [facility] [address] [facility] [id number] [address] [place] [id number] Sep, [facility] [address] [facility] [id number] [address] [place] [id number] Aug, [facility] [address] [facility] [id number] [address] [place] [id number] Aug, [facility] [address] [facility] [id number] [address] [place] [id number] Aug, [facility] [address] [facility] [id number] [address] [place] [id number] Jan, IMMUNIZATIONS No Known Immunizations SOCIAL HISTORY Never Assessed REASON FOR VISIT new orders PLAN OF CARE VITAL SIGNS MEDICATIONS Medication Instructions Dosage Frequency Start Date End Date Duration S tatus Macrobid 100 mg Orally every 12 hrs 1 capsule with food 12h March, Apr, 7 day(s) Active Levothyroxine Sodium 125 MCG Orally Once [...]
--- OUTSIDE RECORDS SUMMARY | 2020-06-13 16:27 | XMS REPORT ---
Author Author Jah PARKER Organization [facility] Address [address] [place] [address] Care Team Providers Care Advertising Assistant Name Role Phone PARKERPATRICIA Mckeon Unavailable PROBLEMS Type Condition ICD9-CM Code UQL82-UG Code Onset Dates Condition S tatus SNOMED Code Problem residential current use of insulin Z79.4 Active 955636882 Problem Essential (primary) hypertension I10 Active 96726812 Problem Type 2 diabetes mellitus with hyperglycemia E11.65 Active 95581878 Problem Major depressive disorder, recurrent episode, moderate F33.1 Active 966066695 Problem Anxiety disorder, unspecified type F41.9 Active 486779718 Problem Current non-adherence to medical treatment Z91.19 Active 2179405 Problem Pulmonary emphysema, unspecified emphysema type J4 3.9 Active 73066450 Problem Chronic fatigue R53.82 Active 8422 9001 Problem Recurrent major depressive disorder, in partial remission F33.41 Active 45651597 Problem Thrombocytosis D47.3 Active 22299 09 Problem Chronic pain G89.29 Active 2714982 1 Problem Overactive bladder N32.81 Active 2 64544459 Problem Mixed hyperlipidemia E78.2 Active 379613624 Problem Neuropathy G62.9 Active 162085102 Problem Gastroesophageal reflux disease with esophagitis K 21.0 Active 150179919 Problem Hypothyroid E03.9 Active 57197269 Problem Irritable bowel syndrome with diarrhea K58.0 Active 513909910 ALLERGIES No Information ENCOUNTERS Encounter Location Date Diagnosis [facility] [address] [facility] [id number] [address] [place] [address] Jun, [facility] [address] [facility] [id number] [address] [place] [address] Jun, Hypothyroid E03.9 [facility] [address] [facility] [id number] [address] [place] [address] Jun, Major depressive disorder, r ecurrent episode, moderate F33.1 and Anxiety disorder, unspecified type F41.9 [place] [address] [facility] [id number] [address] [place] [address] Jun, [place] [address] [facility] [id number] [address] [place] [address] Jun, Type 2 diabetes mellitus wit h hyperglycemia E11.65 ; residential current use of insulin Z79.4 ; Recurrent major depressive disorder, in partial remission F33.41 ; Hypothyroid E03.9 ; Candidal dermatitis B37.2 and Weakness generalized R53.1 [place] [address] [facility] [id number] [address] [place] [address] May, [place] [address] [facility] [id number] [address] [place] [address] May, [place] [address] [place] [id number] [address] [place] [address] May, [place] [address] [place] [id number] [address] [place] [address] May, Generalized abdominal pain R 10.84 and Candidal dermatitis B37.2 [place] [address] [facility] [id number] [address] [place] [address] May, [place] [address] [place] [id number] [address] [place] [address] May, [place] [address] [place] [id number] [address] [place] [address] May, Nodular radiologic density R 93.8 ; Weight loss, unintentional R63.4 and Pulmonary emphysema, unspecified emphysema type J43.9 [place] [address] [facility] [id number] [address] [place] [address] May, Chronic pain G89.29 [place] [address] [place] [id number] [address] [place] [address] May, Syncope and collapse R55 ; C hronic fatigue R53.[address] lung screening R91.8 [facility] [address] [facility] [id number] [address] [place] [address] May, [facility] [address] [place] [id number] [address] [place] [address] Apr, Chronic fatigue R53.82 ; Abn ormal chest CT R93.8 ; Elevated erythrocyte sedimentation rate R70.0 ; Hypothyroid E03.9 and Recurrent major depressive disorder, in partial remission F33.41 [facility] [address] [place] [id number] [address] [place] [address] Apr, Hypothyroid E03.9 [place] [address] [facility] [id number] [address] [place] [address] Apr, Depression F32.9 [facility] [address] [facility] [id number] [address] [place] [address] Apr, [place] [address] [place] [address] March, [facility] [address] [place] [id number] [address] [place] [address] March, Hypothyroid E03.9 [place] [address] [place] [id number] [address] [place] [address] March, Diabetes mellitus E11.9 and Hypothyroid E03.9 [place] [address] [place] [address] March, Diabetes mellitus E11.9 [facility] [address] [place] [id number] [address] [place] [address] March, Hypothyroid E03.9 and Elevat ed liver enzymes R74.8 [place] [address] [facility] [id number] [address] [place] [address] March, Type 2 diabetes mellitus wit h [...] disorder, in partial remission F33.41 [place] [address] [place] [address] Feb, Chronic pain G89.29 [place] [address] [place] [id number] [address] [place] [address] Feb, Type 2 diabetes mellitus wit h hyperglycemia E11.65 and Skin lesion of scalp L98.9 [place] [address] [place] [id number] [address] [place] [address] Feb, [place] [address] [place] [id number] [place] [address] Jan, Type 2 diabetes mellitus wit h [...] bowel syndrome with diarrhea K58.0 [place] [address] [place] [id number] [address] [place] [address] Jan, [place] [address] [place] [address] Jan, Controlled substance agreeme nt signed Z79.899 [place] [address] [facility] [id number] [address] [place] [address] Dec, Type 2 diabetes mellitus wit h [...] and Overweight (BMI 25.0-29.9) E66.3 [place] [address] [place] [id number] [address] [place] [address] 02 Dec, 2017 Controlled substance agreeme nt signed Z79.899 [place] [address] [address] Nov, Type 2 diabetes mellitus wit h hyperglycemia E11.65 and Current non- adherence to medical treatment Z91.19 [place] [address] [address] Nov, [place] [address] [address] Nov, Chronic pain G89.29 [place] [address] [address] Nov, [place] [address] [address] Nov, Hypothyroid E03.9 [place] [address] [address] Nov, Hypothyroid E03.9 [place] [address] [address] Nov, Pulmonary emphysema, unspeci fied emphysema type J43.9 and Irritable bowel syndrome with diarrhea K58.0 [place] [address] [place] [id number] [address] [place] [address] Oct, [place] [address] [address] Oct, [place] [address] [place] [id number] [address] [place] [address] Oct, [place] [address] [address] Oct, [place] [address] [facility] [id number] [address] [place] [address] Oct, Chronic pain G89.29 [place] [address] [facility] [id number] [address] [place] [address] Oct, Diabetes mellitus E11.9 ; De pression F32.9 ; Mixed hyperlipidemia E78.2 ; Hypotension, unspecified hypotension type I95.9 ; Pulmonary emphysema, unspecified emphysema type J43.9 and Weight loss, unintentional R63.4 [place] [address] [facility] [id number] [address] [place] [address] Oct, Chronic pain G89.29 [place] [address] [facility] [id number] [address] [place] [address] Sep, Chronic pain G89.29 [place] [address] [place] [id number] [address] [place] [address] Sep, Hypothyroid E03.9 and Diabet es mellitus E11.9 [place] [address] 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 [id number] [address] [place] [address] Jul, [place] [address] [facility] [id number] [address] [place] [address] Jun, [place] [address] [id number] [address] [place] [address] Jun, [facility] [address] [facility] [id number] [address] [place] [address] Jun, Hypothyroid E03.9 [facility] [address] [facility] [id number] [address] [place] [address] Jun, Diabetes mellitus E11.9 ; Hy pothyroid E03.9 ; Neuropathy G62.9 ; Chronic pain G89.29 and Neck mass R22.1 [facility] [address] [id number] [address] [place] [address] Apr, [facility] [address] [facility] [id number] [address] [place] [address] Apr, Acute cystitis without hemat uria N30.00 [facility] [address] [facility] [id number] [address] [place] [address] March, [facility] [address] [facility] [id number] [address] [place] [address] March, [facility] [address] [facility] [id number] [address] [place] [address] March, Near syncope R55 [facility] [address] [facility] [id number] [address] [place] [address] Feb, [facility] [address] [facility] [id number] [address] [place] [address] Feb, Chronic pain G89.29 [facility] [address] [id number] [address] [place] [address] Feb, [facility] [address] [facility] [id number] [address] [place] [address] Feb, [facility] [address] [facility] [id number] [address] [place] [address] Jan, Chronic pain G89.29 [facility] [address] [facility] [id number] [address] [place] [address] Jan, [facility] [address] [facility] [id number] [address] [place] [address] Jan, [facility] [address] [address] Jan, Diabetes mellitus E11.9 ; Hy pothyroid E03.9 ; GERD (gastroesophageal reflux disease) K21.9 ; Insomnia G47.00 ; Functional diarrhea K59.1 ; Neuropathy G62.9 ; Depression F32.9 ; Chronic pain G89.29 ; Irritable bowel syndrome with diarrhea K58.0 ; Overactive bladder N32.81 ; Mixed hyperlipidemia E78.2 and Bronchitis J40 [facility] [address] [place] [id number] [address] [place] [address] Dec, [facility] [address] [address] Dec, [facility] [address] [address] Dec, [facility] [address] [place] [id number] [address] [place] [address] Dec, [facility] [address] [place] [id number] [address] [place] [address] Dec, Chronic pain G89.29 [facility] [address] [place] [id number] [address] [place] [address] Dec, [facility] [address] [place] [id number] [address] [place] [address] Dec, [facility] [address] [place] [id number] [address] [place] [address] Dec, Type 2 diabetes mellitus wit h foot ulcer E11.621 [facility] [address] [place] [id number] [address] [place] [address] 17 Dec, 2016 Type 2 diabetes mellitus wit h foot ulcer E11.621 [facility] [address] [address] 14 Dec, 2016 HTN (hypertension) I10 ; Dep ression F32.9 ; Type 2 diabetes mellitus with foot ulcer E11.621 ; Functional diarrhea K59.1 ; Irritable bowel syndrome with diarrhea K58.0 ; Chronic pain G89.29 ; Insomnia G47.00 ; Overactive bladder N32.81 ; Mixed hyperlipidemia E78.2 ; Gastroesophageal reflux disease with esophagitis K21.0 and Acquired hypothyroidism E03.9 [place] [address] [address] Nov, [place] [address] [address] Oct, [place] [address] [address] Oct, [address] [address] Oct, [place] [address] [place] [id number] [place] [address] Sep, Functional diarrhea K59.1 ; HTN (hypertension) I10 ; Diabetes mellitus E11.9 ; Depression F32.9 ; Overactive bladder N32.81 ; Mixed hyperlipidemia E78.2 ; Gastroesophageal reflux disease without esophagitis K21.9 ; Chronic pain G89.29 ; Insomnia G47.00 and Acquired hypothyroidism E03.[address] [address] Sep, [place] [id number] [place] [address] Aug, Encounter for immunization Z 23 [place] [id number] [place] [address] Aug, [place] [address] [place] [id number] [place] [address] Jul, [address] [address] Jun, Type 2 diabetes mellitus wit hout complications E11.9 ; HTN (hypertension) I10 ; Hypothyroid E03.9 ; Neuropathy G62.9 ; Depression F32.9 ; Chronic pain G89.29 ; GERD (gastroesophageal reflux disease) K21.9 ; Insomnia G47.00 ; Overactive bladder N32.81 ; Mixed hyperlipidemia E78.2 ; Diarrhea of infectious origin A09 and Environmental allergies Z91.09 [place] [address] [address] Apr, [place] [address] [address] March, Hypothyroidism, unspecified E03.9 and Mixed hyperlipidemia E78.2 [place] [address] [address] March, Diabetes mellitus E11.9 ; HT N (hypertension) I10 ; Hypothyroid E03.9 ; Depression F32.9 ; Overactive bladder N32.81 ; Other chronic pain G89.29 ; Lumbago with sciatica, unspecified side M54.40 ; Environmental allergies Z91.09 and Gastroesophageal reflux disease, esophagitis presence not specified K21.9 [place] [address] [address] March, [place] [address] [address] Jan, HTN (hypertension) I10 ; Hyp othyroid E03.9 ; Neuropathy G62.9 ; Diabetes mellitus E11.9 ; Chronic pain G89.29 ; GERD (gastroesophageal reflux disease) K21.9 ; Overactive bladder N32.81 and Depression F32.9 [place] [address] [address] Dec, Ear pain, left H92.02 ; HTN (hypertension) I10 ; Hypothyroid E03.9 ; Neuropathy G62.9 ; Diabetes mellitus E11.9 ; Depression F32.9 ; GERD (gastroesophageal reflux disease) K21.9 ; Insomnia G47.00 and Overactive bladder N32.81 [place] [address] [facility] [id number] [address] [place] [address] Nov, Overactive bladder N32.81 an d Chronic pain G89.29 [place] [address] [facility] [id number] [address] [place] [address] Nov, Kidney failure N19 [place] [address] [place] [id number] [address] [place] [address] Nov, [place] [address] [facility] [id number] [address] [place] [address] Nov, [place] [address] [place] [id number] [place] [address] Nov, Diabetes mellitus E11.9 ; De pression F32.9 ; Chronic pain G89.29 ; GERD (gastroesophageal reflux disease) K21.9 ; Insomnia G47.00 ; HTN (hypertension) I10 ; Hypothyroid E03.9 ; COPD (chronic obstructive pulmonary disease) J44.9 ; Bladder incontinence R32 and Incontinence R32 [place] [address] [place] [id number] [address] [place] [address] Sep, Type 2 diabetes mellitus wit h foot ulcer E11.621 and Chromosomal abnormality, 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 [place] [address] [place] [id number] [address] [place] [address] Sep, [place] [address] [place] [id number] [address] [place] [address] Aug, [place] [address] [place] [id number] [address] [place] [address] Aug, [place] [address] [place] [id number] [address] [place] [address] Aug, HTN (hypertension) I10 ; Enc ounter for immunization Z23 ; Hypothyroid E03.9 ; Neuropathy G62.9 ; Diabetes mellitus E11.9 ; Depression F32.9 ; Chronic pain G89.29 ; GERD (gastroesophageal reflux disease) K21.9 ; Insomnia G47.00 and COPD (chronic obstructive pulmonary disease) J44.9 [facility] [address] [address] Jun, [facility] [address] [address] Jun, [facility] [address] [address] May, Essential hypertension, ivis gn 401.1 ; Unspecified hypothyroidism 244.9 ; Insomnia, unspecified 780.52 ; Shortness of breath 786.05 ; Depression 311 ; COPD (chronic obstructive pulmonary disease) 496 ; GERD (gastroesophageal reflux disease) 530.81 and Diabetes 1.5, 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 [place] [address] [address] May, [address] [address] May, [address] [address] May, Shortness of breath 786.05 ; Essential hypertension, benign 401.1 ; Diabetes mellitus 250.00 ; Hyperlipidemia 272.4 ; Hypothyroid 244.9 ; Insomnia 780.52 and Cough 786.[address] [address] Apr, [address] [address] March, Shortness of breath 786.05 ; Nausea with vomiting 787.01 ; Essential hypertension, benign 401.1 ; Diabetes mellitus 250.00 ; Hyperlipidemia 272.4 and Hypothyroid 244.9 [facility] [address] [place] [address] Feb, [facility] [address] [address] Feb, [facility] [address] [id number] [address] [place] [address], [place] [address] Jan, [facility] [address] [id number] [address] [place] [address], [place] [address] Jan, [facility] [address] [id number] [address] [place] [address], [place] [address] Jan, [facility] [address] [id number] [address] [place] [address], [place] [address] Jan, [facility] [address] [id number] [address] [place] [address], [place] [address] Jan, [facility] [address] [id number] [address] [place] [address], [place] [address] Jan, [facility] [address] [id number] [address] [place] [address], [place] [address] Jan, [facility] [address] [id number] [address] [place] [address], [place] [address] Jan, [facility] [address] [id number] [address] [place] [address], [place] [address] Jan, [facility] [address] [id number] [address] [place] [address], [place] [address] Jan, [facility] [address] [id number] [address] [place] [address], [place] [address] Dec, [facility] [address] [id number] [address] [place] [address], [place] [address] Dec, 2014 [facility] [address] [id number] [address] [place] [address], [place] [address] Dec, 2014 [facility] [address] [id number] [address] [place] [address], [place] [address] Dec, 2014 [facility] [address] [id number] [address] [place] [address], [place] [address] Dec, 2014 [facility] [address] [id number] [address] [place] [address], [place] [address] Dec, 2014 [facility] [address] [id number] [address] [place] [address], [place] [address] Dec, 2014 [facility] [address] [id number] [address] [place] [address], [place] [address] Dec, 2014 [facility] [address] [id number] [address] [place] [address], [place] [address] Dec, 2014 [facility] [address] [id number] [address] [place] [address], [place] [address] Dec, 2014 [facility] [address] [id number] [address] [place] [address], [place] [address] Oct, [facility] [address] [id number] [address] [place] [address], [place] [address] Oct, [facility] [address] [id number] [address] [place] [address], [place] [address] Oct, [facility] [address] [id number] [address] [place] [address], [place] [address] Oct, [facility] [address] [id number] [address] [place] [address], [place] [id number] Oct, [facility] [address] [id number] [address] [place] [address], [place] [id number] Oct, [facility] [address] [id number] [address] [place] [address], [place] [address] Oct, [facility] [address] [id number] [address] [place] [address], [place] [address] Oct, [facility] [address] [id number] [address] [place] [address], [place] [address] Oct, [facility] [address] [id number] [address] [place] [address], [place] [address] Oct, [facility] [address] [id number] [address] [place] [address], [place] [address] Oct, [facility] [address] [id number] [address] [place] [address], [place] [id number] Oct, [facility] [address] [id number] [address] [place] [address], [place] [address] Oct, [facility] [address] [id number] [address] [place] [address], [place] [address] Oct, [facility] [address] [id number] [address] [place] [address], [place] [address] Sep, [facility] [address] [id number] [address] [place] [address], [place] [address] Sep, [facility] [address] [id number] [address] [place] [address], [place] [address] Sep, [facility] [address] [id number] [address] [place] [address], [place] [address] Sep, [facility] [address] [id number] [address] [place] [address], [place] [address] Sep, [facility] [address] [id number] [address] [place] [address], [place] [address] Sep, [facility] [address] [id number] [address] [place] [address], [place] [address] Sep, [facility] [address] [id number] [address] [place] [address], [place] [address] Sep, [facility] [address] [id number] [address] [place] [address], [place] [address] Sep, [facility] [address] [id number] [address] [place] [address], [place] [address] Aug, [facility] [address] [id number] [address] [place] [address], [place] [id number] Aug, [facility] [address] [address] [id number] [address] [place] [address], [place] [address] Aug, [facility] [address] [id number] [address] [place] [address], [place] [address] Aug, [facility] [address] [id number] [address] [place] [address], [place] [address] 16 Aug, 2014 [facility] [address] [id number] [address] [place] [address], [place] [address] Aug, [facility] [address] [id number] [address] [place] [address], [place] [address] Aug, [facility] [address] [id number] [address] [place] [address], [place] [address] Aug, [facility] [address] [id number] [address] [place] [address], [place] [address] Aug, [facility] [address] [id number] [address] [place] [address], [place] [address] 29 Jul, 2013 [facility] [address] [id number] [address] [place] [address], [place] [address] 29 Jul, 2013 [facility] [address] [id number] [address] [place] [address], [place] [address] 25 Jul, 2013 [facility] [address] [id number] [address] [place] [address], [place] [address] 25 Jul, 2013 [facility] [address] [id number] [address] [place] [address], [place] [address] Jul, 2013 [facility] [address] [id number] [address] [place] [address], [place] [address] 25 Jul, 2013 [facility] [address] [id number] [address] [place] [address], [place] [address] 25 Jul, 2013 [facility] [address] [id number] [address] [place] [address], [place] [address] 25 Jul, 2013 [facility] [address] [id number] [address] [place] [address], [place] [address] 02 Jul, 2013 [facility] [address] [id number] [address] [place] [address], [place] [address] 02 Jul, 2013 [facility] [address] [id number] [address] [place] [address] Jun, [facility] [address] [id number] [facility] [place] [address] Jun, [facility] [address] [id number] [facility] [place] [address] Jun, [facility] [address] [id number] [address] [place] [address], [place] [address] Jun, [facility] [address] [id number] [address] [place] [address], [place] [address] Jun, [facility] [address] [id number] [address] [place] [address], [place] [address] Jun, [facility] [address] [id number] [address] [place] [address], [place] [address] Jun, [facility] [address] [id number] [address] [place] [address], [place] [address] Jun, [facility] [address] [id number] [address] [place] [address], [place] [address] Jun, [facility] [address] [id number] [address] [place] [address], [place] [address] Jun, [facility] [address] [id number] [address] [place] [address], [place] [address] Jun, [facility] [address] [id number] [address] [place] [address], [place] [address] Jun, [facility] [address] [id number] [address] [place] [address], [place] [address] May, [facility] [address] [id number] [address] [place] [address], [place] [address] May, [facility] [address] [id number] [address] [place] [address], [place] [address] May, [facility] [address] [id number] [address] [place] [address], [place] [address] May, [facility] [address] [id number] [facility] [place] [address] May, [facility] [address] [id number] [facility] [place] [address] May, [facility] [address] [id number] [address] [place] [address], [place] [address] March, [facility] [address] [id number] [address] [place] [address], [place] [address] March, [facility] [address] [id number] [address] [place] [address], [place] [address] March, [facility] [address] [id number] [address] [place] [address], [place] [address] March, [facility] [address] [id number] [address] [place] [address], [place] [address] March, [facility] [address] [id number] [address] [place] [address], [place] [address] March, [facility] [address] [id number] [address] [place] [address], [place] [address] Feb, [facility] [address] [id number] [address] [place] [address], [place] [address] Feb, [facility] [address] [id number] [address] [place] [address], [place] [address] Feb, [facility] [address] [id number] [address] [place] [address], [place] [address] Feb, [facility] [address] [id number] [address] [place] [address], [place] [address] Jan, [facility] [address] [id number] [address] [place] [address], [place] [address] Jan, [facility] [address] [id number] [address] [place] [address], [place] [address] Jan, [facility] [address] [id number] [address] [place] [address], [place] [address] Jan, [facility] [address] [id number] [facility] [place] [address] Jan, [facility] [address] [id number] [address] [place] [address], [place] [address] Jan, [facility] [address] [id number] [address] [place] [address], [place] [address] Jan, [facility] [address] [id number] [address] [place] [address], [place] [address] Jan, [facility] [address] [id number] [address] [place] [address], [place] [address] Jan, [facility] [address] [id number] [address] [place] [address], [place] [address] Jan, [facility] [address] [id number] [address] [place] [address], [place] [address] Jan, [facility] [address] [id number] [address] [place] [address], [place] [address] Jan, [facility] [address] [id number] [address] [place] [address], [place] [address] Dec, [facility] [address] [id number] [address] [place] [address], [place] [address] Dec, [facility] [address] [id number] [address] [place] [address], [place] [address] Dec, [facility] [address] [id number] [address] [place] [address], [place] [address] Dec, [facility] [address] [id number] [address] [place] [address], [place] [address] Dec, [facility] [address] [id number] [address] [place] [address], [place] [address] Dec, [facility] [address] [id number] [address] [place] [address], [place] [address] Nov, [facility] [address] [id number] [address] [place] [address], [place] [address] Nov, [facility] [address] [id number] [address] [place] [address], [place] [address] Oct, [facility] [address] [id number] [address] [place] [address], [place] [address] Oct, [facility] [address] [id number] [address] [place] [address], [place] [address] Oct, [facility] [address] [id number] [address] [place] [address], [place] [address] Oct, [facility] [address] [id number] [address] [place] [address], [place] [address] Oct, [facility] [address] [id number] [address] [place] [address], [place] [address] Oct, [facility] [address] [id number] [address] [place] [address], [place] [address] Sep, [facility] [address] [id number] [address] [place] [address], [place] [address] Sep, [facility] [address] [id number] [address] [place] [address], [place] [address] Sep, [facility] [address] [id number] [address] [place] [address], [place] [address] Sep, [facility] [address] [id number] [address] [place] [address], [place] [address] Aug, [facility] [address] [id number] [address] [place] [address], [place] [address] Aug, [facility] [address] [id number] [address] [place] [address], [place] [address] Aug, [facility] [address] [id number] [address] [place] [address], [place] [address] 17 Jul, 2013 [facility] [address] [id number] [address] [place] [address], [place] [address] 14 Jul, 2013 [facility] [address] [id number] [address] [place] [address], [place] [address] Jul, [facility] [address] [id number] [address] [place] [address], [place] [address] Jun, [facility] [address] [id number] [address] [place] [address], [place] [address] Jun, [facility] [address] [id number] [address] [place] [address], [place] [address] Jun, [facility] [address] [id number] [address] [place] [address], [place] [address] Apr, [facility] [address] [id number] [address] [place] [address], [place] [address] Apr, [facility] [address] [id number] [address] [place] [address], [place] [address] March, [facility] [address] [id number] [address] [place] [address], [place] [address] March, [facility] [address] [id number] [address] [place] [address], [place] [address] March, [facility] [address] [id number] [address] [place] [address], [place] [address] March, [facility] [address] [id number] [address] [place] [address], [place] [address] Feb, [facility] [address] [id number] [address] [place] [address], [place] [address] Jan, [facility] [address] [id number] [address] [place] [address], [place] [address] Dec, [facility] [address] [id number] [address] [place] [address], [place] [address] Dec, [facility] [address] [id number] [address] [place] [address], [place] [address] Dec, [facility] [address] [id number] [address] [place] [address], [place] [address] Nov, [facility] [address] [id number] [address] [place] [address], [place] [address] Oct, [facility] [address] [id number] [address] [place] [address], [place] [address] Oct, [facility] [address] [id number] [address] [place] [address], [place] [address] Sep, [facility] [address] [id number] [address] [place] [address], [place] [address] Sep, [facility] [address] [id number] [address] [place] [address], [place] [address] Sep, [facility] [address] [id number] [address] [place] [address], [place] [address] Sep, [facility] [address] [id number] [address] [place] [address], [place] [address] Sep, [facility] [address] [id number] [address] [place] [address], [place] [address] Sep, [facility] [address] [id number] [address] [place] [address], [place] [address] Sep, [facility] [address] [id number] [address] [place] [address], [place] [address] Aug, [facility] [address] [id number] [address] [place] [address], [place] [address] Aug, [facility] [address] [id number] [address] [place] [address], [place] [address] Aug, [facility] [address] [id number] [address] [place] [address], [place] [address] Aug, [facility] [address] [id number] [address] [place] [address], [place] [address] Aug, [facility] [address] [id number] [address] [place] [address], [place] [address] Aug, [facility] [address] [id number] [address] [place] [address], [place] [address] Aug, [facility] [address] [id number] [address] [place] [address], [place] [address] Aug, [facility] [address] [id number] [address] [place] [address], [place] [address] Jul, [facility] [address] [id number] [address] [place] [address], [place] [address] Jul, [facility] [address] [id number] [address] [place] [address], [place] [address] Jun, [facility] [address] [id number] [address] [place] [address], [place] [address] May, [facility] [address] [id number] [address] [place] [address], [place] [address] Apr, [facility] [address] [id number] [address] [place] [address], [place] [address] Apr, [facility] [address] [id number] [address] [place] [address], [place] [address] Apr, [facility] [address] [id number] [address] [place] [address], [place] [address] March, [facility] [address] [id number] [address] [place] [address], [place] [address] March, [facility] [address] [id number] [address] [place] [address], [place] [address] March, [facility] [address] [id number] [address] [place] [address], [place] [address] March, [facility] [address] [id number] [address] [place] [address], [place] [address] March, [facility] [address] [id number] [address] [place] [address], [place] [address] March, [facility] [address] [id number] [address] [place] [address], [place] [address] March, [facility] [address] [id number] [address] [place] [address], [place] [address] Jan, [facility] [address] [id number] [address] [place] [address], [place] [address] Jan, [facility] [address] [id number] [address] [place] [address], [place] [address] Jan, [facility] [address] [id number] [address] [place] [address], [place] [address] Jan, [facility] [address] [id number] [address] [place] [address], [place] [address] Jan, [facility] [address] [id number] [address] [place] [address], [place] [address] 08 Dec, 2011 [facility] [address] [id number] [address] [place] [address], [place] [address] Dec, [facility] [address] [id number] [address] [place] [address], [place] [address] Nov, [facility] [address] [id number] [address] [place] [address], [place] [address] Nov, [facility] [address] [id number] [address] [place] [address], [place] [address] Nov, [facility] [address] [id number] [address] [place] [address], [place] [address] Nov, [facility] [address] [id number] [address] [place] [address], [place] [address] Oct, [facility] [address] [id number] [address] [place] [address], [place] [address] Oct, [facility] [address] [id number] [address] [place] [address], [place] [address] 14 Sep, 2011 [facility] [address] [id number] [address] [place] [address], [place] [address] 10 Sep, 2011 [facility] [address] [id number] [address] [place] [address], [place] [address] 10 Sep, 2011 [facility] [address] [id number] [address] [place] [address], [place] [address] 11 May, 2011 [facility] [address] [id number] [address] [place] [address], [place] [address] Nov, [facility] [address] [id number] [address] [place] [address], [place] [address] 29 Oct, 2010 [facility] [address] [id number] [address] [place] [address], [place] [address] 14 Oct, 2010 [facility] [address] [id number] [address] [place] [address], [place] [address] 08 Oct, 2010 [facility] [address] [id number] [address] [place] [address], [place] [address] 15 Sep, 2010 [facility] [address] [id number] [address] [place] [address], [place] [address] Sep, [facility] [address] [id number] [address] [place] [address], [place] [address] Aug, [facility] [address] [id number] [address] [place] [address], [place] [address] March, [facility] [address] [id number] [address] [place] [address], [place] [phone] 17 Oct, 2009 [facility] [address] [id number] [address] [place] [address], [place] [phone] 17 Oct, 2009 [facility] [address] [id number] [address] [place] [address], [place] [phone] 10 Oct, 2009 [facility] [address] [id number] [address] [place] [address], [place] [phone] Oct, [facility] [address] [id number] [address] [place] [address], [place] [phone] Sep, [facility] [address] [id number] [address] [place] [address], [place] [phone] Sep, [facility] [address] [facility] [id number] [address] [place] [phone] Sep, [facility] [address] [facility] [id number] [address] [place] [phone] Aug, [facility] [address] [facility] [id number] [address] [place] [phone] Aug, [facility] [address] [facility] [id number] [address] [place] [phone] Aug, [facility] [address] [facility] [id number] [address] [place] [phone] Jan, IMMUNIZATIONS No Known Immunizations SOCIAL HISTORY Never Assessed REASON FOR VISIT Requests return call PLAN OF CARE VITAL SIGNS MEDICATIONS Unknown [...]
--- OUTSIDE RECORDS SUMMARY | 2020-06-13 16:28 | XMS REPORT ---
Author Author Jah PARKERELE Organization [facility] [place] Address [address] [place] [address] Care Team Providers Care Test Engineering Technician Name Role Phone PATRICIA PARKER Unavailable PROBLEMS Type Condition ICD9-CM Code CEL51-GY Code Onset Dates Condition S tatus SNOMED Code Problem nursing home current use of insulin Z79.4 Active 467384972 Problem Essential (primary) hypertension I10 Active 69373778 Problem Type 2 diabetes mellitus with hyperglycemia E11.65 Active 06160316 Problem Major depressive disorder, recurrent episode, moderate F33.1 Active 228835244 Problem Anxiety disorder, unspecified type F41.9 Active 688823855 Problem Current non-adherence to medical treatment Z91.19 Active 2711201 Problem Pulmonary emphysema, unspecified emphysema type J4 3.9 Active 49784975 Problem Chronic fatigue R53.82 Active 8422 9001 Problem Recurrent major depressive disorder, in partial remission F33.41 Active 85929768 Problem Thrombocytosis D47.3 Active 84115 09 Problem Chronic pain G89.29 Active 9421732 1 Problem Overactive bladder N32.81 Active 2 28078046 Problem Mixed hyperlipidemia E78.2 Active 527409057 Problem Neuropathy G62.9 Active 959465035 Problem Gastroesophageal reflux disease with esophagitis K 21.0 Active 520083168 Problem Hypothyroid E03.9 Active 15166341 Problem Irritable bowel syndrome with diarrhea K58.0 Active [id number] ALLERGIES No Information ENCOUNTERS Encounter Location Date Diagnosis [facility] [place] [address] [facility] [id number] [address] [place] [id number] Jun, [facility] [place] [address] [facility] [id number] [address] [place] [id number] Jun, Major depressive disorder, r ecurrent episode, moderate F33.1 and Anxiety disorder, unspecified type F41.9 [facility] [place] [address] [facility] [id number] [address] [place] [id number] Jun, [place] [id number] [facility] [id number] [address] [place] [id number] Jun, Type 2 diabetes mellitus wit h hyperglycemia E11.65 ; nursing home current use of insulin Z79.4 ; Recurrent major depressive disorder, in partial remission F33.41 ; Hypothyroid E03.9 ; Candidal dermatitis B37.2 and Weakness generalized R53.1 [place] [address] [id number] [address] [place] [id number] May, [place] [address] [facility] [id number] [address] [place] [id number] May, [place] [address] [facility] [id number] [address] [place] [id number] May, [place] [address] [facility] [id number] [address] [place] [id number] May, Generalized abdominal pain R 10.84 and Candidal dermatitis B37.2 [place] [address] [facility] [id number] [address] [place] [id number] May, [place] [address] [facility] [id number] [address] [place] [id number] May, [place] [address] [facility] [id number] [address] [place] [id number] May, Nodular radiologic density R 93.8 ; Weight loss, unintentional R63.4 and Pulmonary emphysema, unspecified emphysema type J43.9 [place] [address] [facility] [id number] [address] [place] [id number] May, Chronic pain G89.29 [place] [address] [facility] [id number] [address] [place] [id number] May, Syncope and collapse R55 ; C hronic fatigue R53.[address] lung screening R91.8 [place] [address] [facility] [id number] [address] [place] [id number] May, [place] [address] [facility] [id number] [address] [place] [id number] Apr, Chronic fatigue R53.82 ; Abn ormal chest CT R93.8 ; Elevated erythrocyte sedimentation rate R70.0 ; Hypothyroid E03.9 and Recurrent major depressive disorder, in partial remission F33.41 [facility] [place] [address] [facility] [id number] [address] [place] [id number] Apr, Hypothyroid E03.9 [facility] [place] [address] [facility] [id number] [address] [place] [id number] Apr, Depression F32.9 [facility] [place] [address] [facility] [id number] [address] [place] [id number] Apr, [facility] [place] [address] [facility] [id number] [address] [place] [id number] March, [place] [address] [facility] [id number] [address] [place] [id number] March, Hypothyroid E03.9 [facility] [place] [address] [facility] [id number] [address] [place] [id number] March, Diabetes mellitus E11.9 and Hypothyroid E03.9 [facility] [place] [address] [facility] [id number] [address] [place] [id number] March, Diabetes mellitus E11.9 [place] [address] [facility] [id number] [address] [place] [id number] March, Hypothyroid E03.9 and Elevat ed liver enzymes R74.8 [facility] [place] [address] [facility] [id number] [address] [place] [id number] March, Type 2 diabetes mellitus wit h [...] major depressive disorder, in partial remission F33.41 [place] [id number] [place] [id number] Feb, Chronic pain G89.29 [place] [address] [place] [id number] [address] [place] [id number] Feb, Type 2 diabetes mellitus wit h hyperglycemia E11.65 and Skin lesion of scalp L98.9 [place] [address] [place] [id number] [address] [place] [id number] Feb, [place] [address] [place] [id number] [address] [place] [id number] Jan, Type 2 diabetes mellitus wit h [...] and Irritable bowel syndrome with diarrhea K58.0 [place] [address] [place] [id number] [address] [place] [id number] Jan, [place] [address] [place] [id number] [address] [place] [id number] Jan, Controlled substance agreeme nt signed Z79.899 [place] [address] [place] [id number] [address] [place] [id number] Dec, Type 2 diabetes mellitus wit h hyperglycemia E11.65 ; Controlled substance agreement signed Z79.899 ; 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 ; Essential (primary) hypertension I10 ; Hypothyroid E03.9 ; Neuropathy G62.9 ; Depression F32.9 ; Mixed hyperlipidemia E78.2 ; Irritable bowel syndrome with diarrhea K58.0 ; Gastroesophageal reflux disease with esophagitis K21.0 ; Thrombocytosis D47.3 ; Current non-adherence to medical treatment Z91.19 and Overweight (BMI 25.0-29.9) E66.3 [facility] [place] [address] [facility] [id number] [address] [place] [id number] Dec, Controlled substance agreeme nt signed Z79.899 [facility] [place] [address] [facility] [id number] [address] [place] [id number] Nov, Type 2 diabetes mellitus wit h hyperglycemia E11.65 and Current non- adherence to medical treatment Z91.19 [place] [address] [facility] [id number] [address] [place] [id number] Nov, [place] [address] [place] [id number] [address] [place] [id number] Nov, Chronic pain G89.29 [place] [address] [place] [id number] [address] [place] [id number] Nov, [place] [address] [place] [id number] [address] [place] [id number] Nov, Hypothyroid E03.9 [place] [address] [facility] [id number] [address] [place] [id number] Nov, Hypothyroid E03.9 [place] [address] [place] [id number] [address] [place] [id number] Nov, Pulmonary emphysema, unspeci fied emphysema type J43.9 and Irritable bowel syndrome with diarrhea K58.0 [place] [address] [facility] [id number] [address] [place] [id number] Oct, [place] [address] [facility] [id number] [address] [place] [id number] Oct, [place] [address] [place] [id number] [address] [place] [id number] Oct, [place] [address] [place] [id number] [address] [place] [id number] Oct, [place] [address] [place] [id number] [address] [place] [id number] Oct, Chronic pain G89.29 [place] [address] [facility] [id number] [address] [place] [id number] Oct, Diabetes mellitus E11.9 ; De pression F32.9 ; Mixed hyperlipidemia E78.2 ; Hypotension, unspecified hypotension type I95.9 ; Pulmonary emphysema, unspecified emphysema type J43.9 and Weight loss, unintentional R63.4 [place] [address] [address] Oct, Chronic pain G89.29 [place] [address] [place] [id number] [place] [id number] Sep, Chronic pain G89.29 [place] [address] [address] Sep, Hypothyroid E03.9 and Diabet es mellitus E11.9 [place] [address] [address] Aug, Type 2 diabetes mellitus wit h hyperglycemia E11.65 ; 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 ; Essential (primary) hypertension I10 ; Hypothyroid E03.9 ; Neuropathy G62.9 ; Chronic pain G89.29 ; Mixed hy perlipidemia E78.2 and Encounter for immunization Z23 [place] [address] [place] [id number] [address] [place] [id number] Aug, Chronic pain G89.29 [place] [address] [id number] Aug, Overactive bladder N32.81 ; Diabetes mellitus E11.9 and Chronic pain G89.29 [place] [address] [place] [id number] [address] [place] [id number] Jul, [place] [address] [place] [id number] [place] [id number] Jun, [place] [address] [place] [id number] [address] [place] [id number] Jun, [place] [address] [place] [id number] [address] [place] [id number] Jun, Hypothyroid E03.9 [facility] [place] [address] [facility] [id number] [address] [place] [id number] Jun, Diabetes mellitus E11.9 ; Hy pothyroid E03.9 ; Neuropathy G62.9 ; Chronic pain G89.29 and Neck mass R22.1 [facility] [place] [address] [facility] [id number] [address] [place] [id number] Apr, [facility] [place] [address] [facility] [id number] [address] [place] [id number] Apr, Acute cystitis without hemat uria N30.00 [facility] [place] [address] [facility] [id number] [address] [place] [id number] March, [facility] [place] [address] [facility] [id number] [address] [place] [id number] March, [facility] [place] [address] [facility] [id number] [address] [place] [id number] March, Near syncope R55 [facility] [place] [address] [facility] [id number] [address] [place] [id number] Feb, [facility] [place] [address] [facility] [id number] [address] [place] [id number] Feb, Chronic pain G89.29 [facility] [place] [address] [facility] [id number] [address] [place] [id number] Feb, [facility] [place] [address] [facility] [id number] [address] [place] [id number] Feb, [facility] [place] [address] [facility] [id number] [address] [place] [id number] 24 Jan, 2017 Chronic pain G89.29 [facility] [place] [address] [facility] [id number] [address] [place] [id number] Jan, [facility] [place] [address] [place] [id number] [address] [place] [id number] 16 Jan, 2017 [facility] [place] [address] [place] [id number] 14 Jan, 2017 Diabetes mellitus E11.9 ; Hy pothyroid E03.9 ; GERD (gastroesophageal reflux disease) K21.9 ; Insomnia G47.00 ; Functional diarrhea K59.1 ; Neuropathy G62.9 ; Depression F32.9 ; Chronic pain G89.29 ; Irritable bowel syndrome with diarrhea K58.0 ; Overactive bladder N32.81 ; Mixed hyperlipidemia E78.2 and Bronchitis J40 [facility] [place] [address] [place] [id number] Dec, [facility] [place] [address] [id number] 24 Dec, 2016 [facility] [place] [address] [address] Dec, [facility] [place] [address] [place] [id number] [address] [place] [id number] Dec, [facility] [place] [address] [place] [id number] Dec, Chronic pain G89.29 [facility] [place] [address] [place] [id number] [address] [place] [id number] 23 Dec, 2016 [facility] [place] [address] [place] [id number] [address] [place] [id number] 20 Dec, 2016 [facility] [place] [address] [place] [id number] 17 Dec, 2016 Type 2 diabetes mellitus wit h foot ulcer E11.621 [facility] [place] [address] [id number] 17 Dec, 2016 Type 2 diabetes mellitus wit h foot ulcer E11.621 [facility] [place] [address] [place] [id number] [address] [place] [id number] 14 Dec, 2016 HTN (hypertension) I10 ; Dep ression F32.9 ; Type 2 diabetes mellitus with foot ulcer E11.621 ; Functional diarrhea K59.1 ; Irritable bowel syndrome with diarrhea K58.0 ; Chronic pain G89.29 ; Insomnia G47.00 ; Overactive bladder N32.81 ; Mixed hyperlipidemia E78.2 ; Gastroesophageal reflux disease with esophagitis K21.0 and Acquired hypothyroidism E03.9 [place] [address] [place] [id number] [address] [place] [id number] Nov, [place] [address] [place] [id number] [place] [id number] Oct, [place] [address] [place] [id number] [place] [id number] Oct, [place] [address] [place] [id number] [place] [id number] Oct, [place] [address] [place] [id number] [place] [id number] Sep, Functional diarrhea K59.1 ; HTN (hypertension) I10 ; Diabetes mellitus E11.9 ; Depression F32.9 ; Overactive bladder N32.81 ; Mixed hyperlipidemia E78.2 ; Gastroesophageal reflux disease without esophagitis K21.9 ; Chronic pain G89.29 ; Insomnia G47.00 and Acquired hypothyroidism E03.9 [place] [address] [place] [id number] [address] [place] [id number] Sep, [place] [address] [place] [id number] [place] [id number] Aug, Encounter for immunization Z 23 [place] [address] [place] [id number] [address] [place] [id number] Aug, [place] [address] [place] [id number] [place] [id number] Jul, [place] [address] [place] [id number] [address] [place] [id number] Jun, Type 2 diabetes mellitus wit hout complications E11.9 ; HTN (hypertension) I10 ; Hypothyroid E03.9 ; Neuropathy G62.9 ; Depression F32.9 ; Chronic pain G89.29 ; GERD (gastroesophageal reflux disease) K21.9 ; Insomnia G47.00 ; Overactive bladder N32.81 ; Mixed hyperlipidemia E78.2 ; Diarrhea of infectious origin A09 and Environmental allergies Z91.09 [place] [address] [address] Apr, [place] [address] [address] March, Hypothyroidism, unspecified E03.9 and Mixed hyperlipidemia E78.2 [place] [address] [address] March, Diabetes mellitus E11.9 ; HT N (hypertension) I10 ; Hypothyroid E03.9 ; Depression F32.9 ; Overactive bladder N32.81 ; Other chronic pain G89.29 ; Lumbago with sciatica, unspecified side M54.40 ; Environmental allergies Z91.09 and Gastroesophageal reflux disease, esophagitis presence not specified K21.9 [place] [address] [address] March, [address] [address] Jan, HTN (hypertension) I10 ; Hyp othyroid E03.9 ; Neuropathy G62.9 ; Diabetes mellitus E11.9 ; Chronic pain G89.29 ; GERD (gastroesophageal reflux disease) K21.9 ; Overactive bladder N32.81 and Depression F32.9 [place] [address] [address] Dec, Ear pain, left H92.02 ; HTN (hypertension) I10 ; Hypothyroid E03.9 ; Neuropathy G62.9 ; Diabetes mellitus E11.9 ; Depression F32.9 ; GERD (gastroesophageal reflux disease) K21.9 ; Insomnia G47.00 and Overactive bladder N32.81 [place] [address] [address] Nov, Overactive bladder N32.81 an d Chronic pain G89.29 [place] [address] [phone] Nov, Kidney failure N19 [place] [address] [address] Nov, [place] [address] [address] Nov, [place] [address] [address] Nov, Diabetes mellitus E11.9 ; De pression F32.9 ; Chronic pain G89.29 ; GERD (gastroesophageal reflux disease) K21.9 ; Insomnia G47.00 ; HTN (hypertension) I10 ; Hypothyroid E03.9 ; COPD (chronic obstructive pulmonary disease) J44.9 ; Bladder incontinence R32 and Incontinence R32 [place] [address] [address] Sep, Type 2 diabetes mellitus wit h foot ulcer E11.621 and Chromosomal abnormality, 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 [place] [address] [address] Sep, [place] [address] [address] Aug, [place] [address] [address] Aug, [place] [address] [address] Aug, HTN (hypertension) I10 ; Enc ounter for immunization Z23 ; Hypothyroid E03.9 ; Neuropathy G62.9 ; Diabetes mellitus E11.9 ; Depression F32.9 ; Chronic pain G89.29 ; GERD (gastroesophageal reflux disease) K21.9 ; Insomnia G47.00 and COPD (chronic obstructive pulmonary disease) J44.9 [place] [address] [address] Jun, [facility] [place] [address] [place] [id number] Jun, [facility] [place] [address] [place] [id number] May, Essential hypertension, ivis gn 401.1 ; Unspecified hypothyroidism 244.9 ; Insomnia, unspecified 780.52 ; Shortness of breath 786.05 ; Depression 311 ; COPD (chronic obstructive pulmonary disease) 496 ; GERD (gastroesophageal reflux disease) 530.81 and Diabetes 1.5, 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 [facility] [place] [address] [address] May, [facility] [place] [address] [address] May, [facility] [place] [address] [address] May, Shortness of breath 786.05 ; Essential hypertension, benign 401.1 ; Diabetes mellitus 250.00 ; Hyperlipidemia 272.4 ; Hypothyroid 244.9 ; Insomnia 780.52 and Cough 786.2 [facility] [place] [address] [place] [id number] [place] [id number] Apr, [facility] [place] [address] [place] [id number] [place] [id number] March, Shortness of breath 786.05 ; Nausea with vomiting 787.01 ; Essential hypertension, benign 401.1 ; Diabetes mellitus 250.00 ; Hyperlipidemia 272.4 and Hypothyroid 244.9 [facility] [place] [address] [place] [id number] [place] [id number] Feb, [facility] [place] [address] [id number] Feb, [facility] [place] [address] [place] [id number] [place] [id number] Jan, [facility] [place] [address] [place] [id number] [place] [id number] Jan, [facility] [address] [id number] [address] [place] [address], [place] [id number] Jan, [facility] [address] [id number] [address] [place] [address], [place] [id number] Jan, [facility] [address] [id number] [address] [place] [address], [place] [address] Jan, [facility] [address] [id number] [address] [place] [address], [place] [address] Jan, [facility] [address] [id number] [address] [place] [address], [place] [address] Jan, [facility] [address] [id number] [address] [place] [address], [place] [address] Jan, [facility] [address] [id number] [address] [place] [id number] Jan, [facility] [address] [id number] [address] [place] [address], [place] [address] Jan, [facility] [address] [id number] [address] [place] [address], [place] [address] Dec, 2014 [facility] [address] [id number] [address] [place] [id number] Dec, [facility] [address] [id number] [address] [place] [address], [place] [address] Dec, 2014 [facility] [address] [id number] [address] [place] [id number] Dec, 2014 [facility] [address] [id number] [address] [place] [address], [place] [id number] Dec, 2014 [facility] [address] [id number] [address] [place] [id number] Dec, 2014 [facility] [address] [id number] [address] [place] [id number] Dec, 2014 [facility] [address] [id number] [address] [place] [address], [place] [id number] Dec, 2014 [facility] [address] [id number] [address] [place] [address], [place] [id number] Dec, 2014 [facility] [address] [id number] [address] [place] [address], [place] [id number] Dec, 2014 [facility] [address] [id number] [address] [place] [address], [place] [id number] Oct, [facility] [address] [id number] [address] [place] [address], [place] [id number] Oct, [facility] [address] [id number] [address] [place] [address], [place] [id number] Oct, [facility] [address] [id number] [address] [place] [address], [place] [id number] Oct, [facility] [address] [id number] [address] [place] [address], [place] [id number] Oct, [facility] [address] [address] [id number] [address] [place] [address], [place] [address] Oct, [facility] [address] [id number] [address] [place] [address], [place] [address] Oct, [facility] [address] [id number] [address] [place] [address], [place] [address] Oct, [facility] [address] [id number] [address] [place] [address], [place] [address] Oct, [facility] [address] [id number] [address] [place] [address], [place] [address] Oct, [facility] [address] [id number] [address] [place] [address], [place] [address] Oct, [facility] [address] [id number] [address] [place] [address], [place] [address] Oct, [facility] [address] [id number] [address] [place] [address], [place] [address] Oct, [facility] [address] [id number] [address] [place] [address], [place] [address] Oct, [facility] [address] [id number] [address] [place] [address], [place] [address] Sep, [facility] [address] [id number] [address] [place] [address], [place] [address] Sep, [facility] [address] [id number] [address] [place] [address], [place] [address] Sep, [facility] [address] [id number] [address] [place] [address], [place] [address] Sep, [facility] [address] [id number] [address] [place] [address], [place] [address] Sep, [facility] [address] [id number] [address] [place] [address], [place] [address] Sep, [facility] [address] [id number] [address] [place] [address], [place] [address] Sep, [facility] [address] [id number] [address] [place] [address], [place] [address] Sep, [facility] [address] [id number] [address] [place] [address], [place] [address] Sep, [facility] [address] [id number] [address] [place] [address], [place] [address] Aug, [facility] [address] [id number] [address] [place] [address], [place] [address] Aug, [facility] [address] [id number] [address] [place] [address], [place] [address] Aug, [facility] [address] [id number] [address] [place] [address], [place] [address] Aug, [facility] [address] [id number] [address] [place] [address], [place] [address] 16 Aug, 2014 [facility] [address] [id number] [address] [place] [address], [place] [address] Aug, [facility] [address] [id number] [address] [place] [address], [place] [address] Aug, [facility] [address] [id number] [address] [place] [address], [place] [address] Aug, [facility] [address] [id number] [address] [place] [address], [place] [address] Aug, [facility] [address] [id number] [address] [place] [address], [place] [address] Jul, [facility] [address] [id number] [address] [place] [address], [place] [address] Jul, [facility] [address] [id number] [address] [place] [address], [place] [address] Jul, [facility] [address] [id number] [address] [place] [address], [place] [address] Jul, [facility] [address] [id number] [address] [place] [address], [place] [address] Jul, [facility] [address] [id number] [address] [place] [address], [place] [address] Jul, [facility] [address] [id number] [address] [place] [address], [place] [address] Jul, [facility] [address] [id number] [address] [place] [address], [place] [address] Jul, [facility] [address] [id number] [address] [place] [address], [place] [address] Jul, [facility] [address] [id number] [address] [place] [address], [place] [address] Jul, [facility] [address] [id number] [address] [place] [address], [place] [address] Jun, [facility] [address] [id number] [address] [place] [address], [place] [address] Jun, [facility] [address] [id number] [facility] [place] [address] Jun, [facility] [address] [id number] [address] [place] [address], [place] [address] Jun, [facility] [address] [id number] [facility] [place] [address] Jun, [facility] [address] [id number] [address] [place] [address], [place] [address] Jun, [facility] [address] [id number] [address] [place] [address], [place] [address] Jun, [facility] [address] [id number] [address] [place] [address], [place] [address] Jun, [facility] [address] [id number] [address] [place] [address], [place] [address] Jun, [facility] [address] [id number] [address] [place] [address], [place] [address] Jun, [facility] [address] [id number] [address] [place] [address], [place] [address] Jun, [facility] [address] [id number] [address] [place] [address], [place] [address] Jun, [facility] [address] [id number] [address] [place] [address], [place] [address] May, [facility] [address] [id number] [address] [place] [address], [place] [address] May, [facility] [address] [id number] [address] [place] [address], [place] [address] May, [facility] [address] [id number] [address] [place] [address], [place] [address] May, [facility] [address] [id number] [address] [place] [address], [place] [address] May, [facility] [address] [id number] [address] [place] [address], [place] [address] May, [facility] [address] [id number] [address] [place] [address], [place] [address] March, [facility] [address] [id number] [address] [place] [address], [place] [address] March, [facility] [address] [id number] [address] [place] [address], [place] [address] March, [facility] [address] [id number] [address] [place] [address], [place] [address] March, [facility] [address] [id number] [address] [place] [address], [place] [address] March, [facility] [address] [id number] [address] [place] [address], [place] [address] March, [facility] [address] [id number] [address] [place] [address], [place] [address] Feb, [facility] [address] [id number] [address] [place] [address], [place] [address] Feb, [facility] [address] [id number] [address] [place] [address], [place] [address] Feb, [facility] [address] [id number] [address] [place] [address], [place] [address] Feb, [facility] [address] [id number] [address] [place] [address], [place] [address] Jan, [facility] [address] [id number] [address] [place] [address], [place] [address] Jan, [facility] [address] [id number] [address] [place] [address], [place] [address] Jan, [facility] [address] [id number] [address] [place] [address], [place] [address] Jan, [facility] [address] [id number] [address] [place] [address], [place] [address] Jan, [facility] [address] [id number] [address] [place] [address], [place] [address] Jan, [facility] [address] [id number] [address] [place] [address], [place] [address] Jan, [facility] [address] [id number] [address] [place] [address], [place] [address] Jan, [facility] [address] [id number] [address] [place] [address], [place] [address] Jan, [facility] [address] [id number] [address] [place] [address], [place] [address] Jan, [facility] [address] [id number] [address] [place] [address], [place] [address] Jan, [facility] [address] [id number] [address] [place] [address], [place] [address] Jan, [facility] [address] [id number] [address] [place] [address], [place] [address] Dec, [facility] [address] [id number] [address] [place] [address], [place] [address] Dec, [facility] [address] [id number] [address] [place] [address], [place] [address] Dec, [facility] [address] [id number] [address] [place] [address], [place] [address] Dec, [facility] [address] [id number] [address] [place] [address], [place] [address] Dec, [facility] [address] [id number] [address] [place] [address], [place] [address] Dec, [facility] [address] [id number] [address] [place] [address], [place] [address] Nov, [facility] [address] [id number] [address] [place] [address], [place] [address] Nov, [facility] [address] [id number] [address] [place] [address], [place] [address] 13 Oct, 2013 [facility] [address] [id number] [address] [place] [address], [place] [address] Oct, [facility] [address] [id number] [address] [place] [address], [place] [address] Oct, [facility] [address] [id number] [address] [place] [address], [place] [address] Oct, [facility] [address] [id number] [address] [place] [address], [place] [address] Oct, [facility] [address] [id number] [address] [place] [address], [place] [address] Oct, [facility] [address] [id number] [address] [place] [address], [place] [address] Sep, [facility] [address] [id number] [address] [place] [address], [place] [address] Sep, [facility] [address] [id number] [address] [place] [address], [place] [address] Sep, [facility] [address] [id number] [address] [place] [address], [place] [address] Sep, [facility] [address] [id number] [address] [place] [address], [place] [address] Aug, [facility] [address] [id number] [address] [place] [address], [place] [address] Aug, [facility] [address] [id number] [address] [place] [address], [place] [address] 08 Aug, 2013 [facility] [address] [id number] [address] [place] [address], [place] [address] 17 Jul, 2013 [facility] [address] [id number] [address] [place] [address], [place] [address] 14 Jul, 2013 [facility] [address] [id number] [address] [place] [address], [place] [address] Jul, [facility] [address] [id number] [address] [place] [address], [place] [address] Jun, [facility] [address] [id number] [address] [place] [address], [place] [address] Jun, [facility] [address] [id number] [address] [place] [address], [place] [address] Jun, [facility] [address] [id number] [address] [place] [address], [place] [address] Apr, [facility] [address] [id number] [address] [place] [address], [place] [address] Apr, [facility] [address] [id number] [address] [place] [address], [place] [address] March, [facility] [address] [id number] [address] [place] [address], [place] [address] March, [facility] [address] [id number] [address] [place] [address], [place] [address] March, [facility] [address] [id number] [address] [place] [address], [place] [address] March, [facility] [address] [id number] [address] [place] [address], [place] [address] Feb, [facility] [address] [id number] [address] [place] [address], [place] [address] Jan, [facility] [address] [id number] [address] [place] [address], [place] [address] Dec, [facility] [address] [id number] [address] [place] [address], [place] [address] Dec, [facility] [address] [id number] [address] [place] [address], [place] [address] Dec, [facility] [address] [id number] [address] [place] [address], [place] [address] Nov, [facility] [address] [id number] [address] [place] [id number] Oct, [facility] [address] [id number] [address] [place] [address], [place] [address] Oct, [facility] [address] [id number] [address] [place] [id number] Sep, [facility] [address] [id number] [address] [place] [address], [place] [address] Sep, [facility] [address] [id number] [address] [place] [address], [place] [address] Sep, [facility] [address] [id number] [address] [place] [address], [place] [address] Sep, [facility] [address] [id number] [address] [place] [address], [place] [address] Sep, [facility] [address] [id number] [address] [place] [address], [place] [address] Sep, [facility] [address] [id number] [address] [place] [address], [place] [address] Sep, [facility] [address] [id number] [address] [place] [address], [place] [address] Aug, [facility] [address] [id number] [address] [place] [address], [place] [address] 16 Aug, 2012 [facility] [address] [id number] [address] [place] [address] Aug, [facility] [address] [id number] [address] [place] [address] Aug, [facility] [address] [id number] [address] [place] [address] Aug, [facility] [address] [id number] [address] [place] [address] Aug, [facility] [address] [id number] [address] [place] [address] Aug, [facility] [address] [id number] [address] [place] [address], [place] [address] Aug, [facility] [address] [id number] [address] [place] [address], [place] [address] Jul, [facility] [address] [id number] [address] [place] [address], [place] [address] Jul, [facility] [address] [id number] [address] [place] [address], [place] [address] Jun, [facility] [address] [id number] [address] [place] [address], [place] [address] May, [facility] [address] [id number] [address] [place] [address], [place] [address] Apr, [facility] [address] [id number] [address] [place] [address], [place] [address] Apr, [facility] [address] [id number] [address] [place] [address], [place] [address] Apr, [facility] [address] [id number] [address] [place] [address], [place] [address] March, [facility] [address] [id number] [address] [place] [address], [place] [address] March, [facility] [address] [id number] [address] [place] [address], [place] [address] March, [facility] [address] [id number] [address] [place] [address], [place] [address] March, [facility] [address] [id number] [address] [place] [address], [place] [address] March, [facility] [address] [id number] [address] [place] [address], [place] [address] March, [facility] [address] [id number] [address] [place] [address], [place] [address] March, [facility] [address] [id number] [address] [place] [address], [place] [address] 22 Jan, 2012 [facility] [address] [id number] [facility] [place] [address] Jan, [facility] [address] [id number] [address] [place] [address], [place] [id number] 20 Jan, 2012 [facility] [address] [id number] [address] [place] [address], [place] [address] 13 Jan, 2012 [facility] [address] [id number] [address] [place] [address], [place] [address] 12 Jan, 2012 [facility] [address] [id number] [address] [place] [address], [place] [address] 08 Dec, 2011 [facility] [address] [id number] [address] [place] [address], [place] [address] 06 Dec, 2011 [facility] [address] [id number] [address] [place] [address], [place] [address] Nov, [facility] [address] [id number] [address] [place] [address], [place] [address] Nov, [facility] [address] [id number] [address] [place] [address], [place] [address] Nov, [facility] [address] [id number] [address] [place] [address], [place] [address] Nov, [facility] [address] [id number] [address] [place] [address], [place] [address] Oct, [facility] [address] [id number] [address] [place] [address], [place] [id number] Oct, [facility] [address] [id number] [address] [place] [address], [place] [id number] 14 Sep, 2011 [facility] [address] [id number] [address] [place] [address], [place] [id number] 10 Sep, 2011 [facility] [address] [id number] [address] [place] [address], [place] [id number] 10 Sep, 2011 [facility] [address] [id number] [address] [place] [address], [place] [id number] 11 May, 2011 [facility] [address] [id number] [address] [place] [address], [place] [id number] Nov, [facility] [address] [id number] [address] [place] [address], [place] [id number] 29 Oct, 2010 [facility] [address] [id number] [address] [place] [address], [place] [id number] 14 Oct, 2010 [facility] [address] [id number] [address] [place] [address], [place] [id number] 08 Oct, 2010 [facility] [address] [id number] [address] [place] [address], [place] [id number] 15 Sep, 2010 [facility] [address] [id number] [address] [place] [address], [place] [id number] Sep, [facility] [address] [id number] [address] [place] [address], [place] [id number] Aug, [facility] [address] [id number] [address] [place] [address], [place] [id number] March, [facility] [address] [id number] [address] [place] [address], [place] [id number] Oct, [facility] [address] [id number] [address] [place] [address], [place] [id number] 17 Oct, 2009 [facility] [address] [id number] [address] [place] [address], [place] [id number] Oct, [facility] [address] [id number] [address] [place] [address], [place] [id number] Oct, [facility] [address] [id number] [address] [place] [address], [place] [id number] Sep, [facility] [address] [id number] [address] [place] [address], [place] [id number] Sep, [facility] [address] [id number] [address] [place] [address], [place] [id number] Sep, [facility] [place] [address] [facility] [id number] [address] [place] [id number] Aug, [facility] [place] [address] [facility] [id number] [address] [place] [id number] Aug, [facility] [place] [address] [facility] [id number] [address] [place] [id number] Aug, [facility] [place] [address] [facility] [id number] [address] [place] [id number] Jan, IMMUNIZATIONS No Known Immunizations SOCIAL HISTORY Never Assessed REASON FOR VISIT Lab (walk-in) PLAN OF CARE VITAL SIGNS MEDICATIONS Unknown Medications RESULTS No Results PROCEDURES Procedure Date Ordered Result Body Site URINALYSIS, AUTO, W/O SCOPE April 03, 2018 COMPREHEN METABOLIC PANEL April 03, 2018 ASSAY THYROID STIM HORMONE April 03, 2018 COMPLETE CBC W/AUTO DIFF WBC April 03, 2018 URINE CULTURE/COLONY COUNT April 03, 2018 INSTRUCTIONS MEDICATIONS ADMINISTERED No Known Medications [...]
--- OUTSIDE RECORDS SUMMARY | 2020-06-13 16:28 | XMS REPORT ---
Author Author Jah PARKERELE Organization [facility] Address [address] [place] [address] Care Team Providers Care Physician'S Aide Name Role Phone PATRICIA PARKER Unavailable PROBLEMS Type Condition ICD9-CM Code JNE40-OM Code Onset Dates Condition S tatus SNOMED Code Problem alf current use of insulin Z79.4 Active 098157899 Problem Essential (primary) hypertension I10 Active 37783217 Problem Type 2 diabetes mellitus with hyperglycemia E11.65 Active 71218140 Problem Major depressive disorder, recurrent episode, moderate F33.1 Active 421342214 Problem Anxiety disorder, unspecified type F41.9 Active 909565099 Problem Current non-adherence to medical treatment Z91.19 Active 9450586 Problem Pulmonary emphysema, unspecified emphysema type J4 3.9 Active 27725300 Problem Chronic fatigue R53.82 Active 8422 9001 Problem Recurrent major depressive disorder, in partial remission F33.41 Active 86241766 Problem Thrombocytosis D47.3 Active 34021 09 Problem Chronic pain G89.29 Active 6319240 1 Problem Overactive bladder N32.81 Active 2 99356763 Problem Mixed hyperlipidemia E78.2 Active 497521502 Problem Neuropathy G62.9 Active 495236512 Problem Gastroesophageal reflux disease with esophagitis K 21.0 Active 752038831 Problem Hypothyroid E03.9 Active 99655353 Problem Irritable bowel syndrome with diarrhea K58.0 Active 381123700 ALLERGIES No Information ENCOUNTERS Encounter Location Date Diagnosis [facility] [address] [facility] [id number] [address] [place] [address] Jun, [facility] [address] [facility] [id number] [address] [place] [address] Jun, Major depressive disorder, r ecurrent episode, moderate F33.1 and Anxiety disorder, unspecified type F41.9 [facility] [address] [facility] [id number] [address] [place] [address] Jun, [place] [id number] [facility] [id number] [address] [place] [address] Jun, Type 2 diabetes mellitus wit h hyperglycemia E11.65 ; alf current use of insulin Z79.4 ; Recurrent major depressive disorder, in partial remission F33.41 ; Hypothyroid E03.9 ; Candidal dermatitis B37.2 and Weakness generalized R53.1 [place] [address] [id number] [address] [place] [address] May, [place] [address] [facility] [id number] [address] [place] [address] May, [place] [address] [facility] [id number] [address] [place] [address] May, [place] [address] [facility] [id number] [address] [place] [address] May, Generalized abdominal pain R 10.84 and Candidal dermatitis B37.2 [place] [address] [facility] [id number] [address] [place] [address] May, [place] [address] [facility] [id number] [address] [place] [address] May, [place] [address] [facility] [id number] [address] [place] [address] May, Nodular radiologic density R 93.8 ; Weight loss, unintentional R63.4 and Pulmonary emphysema, unspecified emphysema type J43.9 [place] [address] [facility] [id number] [address] [place] [address] May, Chronic pain G89.29 [place] [address] [facility] [id number] [address] [place] [address] May, Syncope and collapse R55 ; C hronic fatigue R53.[address] lung screening R91.8 [place] [address] [facility] [id number] [address] [place] [address] May, [place] [address] [facility] [id number] [address] [place] [address] Apr, Chronic fatigue R53.82 ; Abn ormal chest CT R93.8 ; Elevated erythrocyte sedimentation rate R70.0 ; Hypothyroid E03.9 and Recurrent major depressive disorder, in partial remission F33.41 [facility] [address] [facility] [id number] [address] [place] [address] Apr, Hypothyroid E03.9 [facility] [address] [facility] [id number] [address] [place] [address] Apr, Depression F32.9 [facility] [address] [facility] [id number] [address] [place] [address] Apr, [facility] [address] [facility] [id number] [address] [place] [address] March, [place] [address] [facility] [id number] [address] [place] [address] March, Hypothyroid E03.9 [facility] [address] [facility] [id number] [address] [place] [address] March, Diabetes mellitus E11.9 and Hypothyroid E03.9 [facility] [address] [facility] [id number] [address] [place] [address] March, Diabetes mellitus E11.9 [place] [id number] [facility] [id number] [address] [place] [address] March, Hypothyroid E03.9 and Elevat ed liver enzymes R74.8 [facility] [address] [facility] [id number] [address] [place] [address] March, Type 2 diabetes mellitus wit h [...] disorder, in partial remission F33.41 [place] [id number] [place] [address] Feb, Chronic pain G89.29 [place] [address] [place] [id number] [address] [place] [address] Feb, Type 2 diabetes mellitus wit h hyperglycemia E11.65 and Skin lesion of scalp L98.9 [place] [address] [place] [id number] [address] [place] [address] Feb, [place] [address] [place] [id number] [address] [place] [address] Jan, Type 2 diabetes mellitus wit h [...] bowel syndrome with diarrhea K58.0 [place] [address] [place] [id number] [address] [place] [address] Jan, [place] [address] [place] [id number] [address] [place] [address] Jan, Controlled substance agreeme nt signed Z79.899 [place] [address] [place] [id number] [address] [place] [address] Dec, Type 2 diabetes mellitus wit h hyperglycemia E11.65 ; Controlled substance agreement signed Z79.899 ; 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 ; Essential (primary) hypertension I10 ; Hypothyroid E03.9 ; Neuropathy G62.9 ; Depression F32.9 ; Mixed hyperlipidemia E78.2 ; Irritable bowel syndrome with diarrhea K58.0 ; Gastroesophageal reflux disease with esophagitis K21.0 ; Thrombocytosis D47.3 ; Current non-adherence to medical treatment Z91.19 and Overweight (BMI 25.0-29.9) E66.3 [facility] [address] [facility] [id number] [address] [place] [address] Dec, Controlled substance agreeme nt signed Z79.899 [facility] [address] [facility] [id number] [address] [place] [address] Nov, Type 2 diabetes mellitus wit h hyperglycemia E11.65 and Current non- adherence to medical treatment Z91.19 [place] [address] [facility] [id number] [address] [place] [address] Nov, [place] [address] [place] [id number] [address] [place] [address] Nov, Chronic pain G89.29 [place] [address] [place] [id number] [address] [place] [address] Nov, [place] [address] [place] [id number] [address] [place] [address] Nov, Hypothyroid E03.9 [place] [address] [facility] [id number] [address] [place] [address] Nov, Hypothyroid E03.9 [place] [address] [place] [id number] [address] [place] [address] Nov, Pulmonary emphysema, unspeci fied emphysema type J43.9 and Irritable bowel syndrome with diarrhea K58.0 [place] [address] [facility] [id number] [address] [place] [address] Oct, [place] [address] [facility] [id number] [address] [place] [address] Oct, [place] [address] [place] [id number] [address] [place] [address] Oct, [place] [address] [place] [id number] [address] [place] [address] Oct, [place] [address] [place] [id number] [address] [place] [address] Oct, Chronic pain G89.29 [place] [id number] [facility] [id number] [address] [place] [address] Oct, Diabetes mellitus E11.9 ; De pression F32.9 ; Mixed hyperlipidemia E78.2 ; Hypotension, unspecified hypotension type I95.9 ; Pulmonary emphysema, unspecified emphysema type J43.9 and Weight loss, unintentional R63.4 [place] [address] [address] Oct, Chronic pain G89.29 [place] [address] [place] [id number] [place] [address] Sep, Chronic pain G89.29 [place] [address] [address] Sep, Hypothyroid E03.9 and Diabet es mellitus E11.9 [place] [address] [address] Aug, Type 2 diabetes mellitus wit h hyperglycemia E11.65 ; 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 ; Essential (primary) hypertension I10 ; Hypothyroid E03.9 ; Neuropathy G62.9 ; Chronic pain G89.29 ; Mixed hy perlipidemia E78.2 and Encounter for immunization Z23 [place] [address] [place] [id number] [address] [place] [address] Aug, Chronic pain G89.29 [place] [address] [address] Aug, Overactive bladder N32.81 ; Diabetes mellitus E11.9 and Chronic pain G89.29 [place] [address] [place] [id number] [address] [place] [address] Jul, [place] [address] [place] [id number] [place] [address] Jun, [place] [address] [place] [id number] [address] [place] [address] Jun, [place] [address] [place] [id number] [address] [place] [address] Jun, Hypothyroid E03.9 [facility] [address] [facility] [id number] [address] [place] [address] Jun, Diabetes mellitus E11.9 ; Hy pothyroid E03.9 ; Neuropathy G62.9 ; Chronic pain G89.29 and Neck mass R22.1 [facility] [address] [facility] [id number] [address] [place] [address] Apr, [facility] [address] [facility] [id number] [address] [place] [address] Apr, Acute cystitis without hemat uria N30.00 [facility] [address] [facility] [id number] [address] [place] [address] March, [facility] [address] [facility] [id number] [address] [place] [address] March, [facility] [address] [facility] [id number] [address] [place] [address] March, Near syncope R55 [facility] [address] [facility] [id number] [address] [place] [address] Feb, [facility] [address] [facility] [id number] [address] [place] [address] Feb, Chronic pain G89.29 [facility] [address] [facility] [id number] [address] [place] [address] Feb, [facility] [address] [facility] [id number] [address] [place] [address] Feb, [facility] [address] [facility] [id number] [address] [place] [address] 24 Jan, 2017 Chronic pain G89.29 [facility] [address] [facility] [id number] [address] [place] [address] Jan, [facility] [address] [place] [id number] [address] [place] [address] 16 Jan, 2017 [facility] [address] [place] [address] 14 Jan, 2017 Diabetes mellitus E11.9 ; Hy pothyroid E03.9 ; GERD (gastroesophageal reflux disease) K21.9 ; Insomnia G47.00 ; Functional diarrhea K59.1 ; Neuropathy G62.9 ; Depression F32.9 ; Chronic pain G89.29 ; Irritable bowel syndrome with diarrhea K58.0 ; Overactive bladder N32.81 ; Mixed hyperlipidemia E78.2 and Bronchitis J40 [facility] [address] [place] [address] Dec, [facility] [address] [address] 24 Dec, 2016 [facility] [address] [address] Dec, [facility] [address] [place] [id number] [address] [place] [address] Dec, [facility] [address] [place] [address] Dec, Chronic pain G89.29 [facility] [address] [place] [id number] [address] [place] [address] 23 Dec, 2016 [facility] [address] [place] [id number] [address] [place] [address] 20 Dec, 2016 [facility] [address] [place] [address] 17 Dec, 2016 Type 2 diabetes mellitus wit h foot ulcer E11.621 [facility] [address] [address] 17 Dec, 2016 Type 2 diabetes mellitus wit h foot ulcer E11.621 [facility] [address] [place] [id number] [address] [place] [address] 14 Dec, 2016 HTN (hypertension) I10 ; Dep ression F32.9 ; Type 2 diabetes mellitus with foot ulcer E11.621 ; Functional diarrhea K59.1 ; Irritable bowel syndrome with diarrhea K58.0 ; Chronic pain G89.29 ; Insomnia G47.00 ; Overactive bladder N32.81 ; Mixed hyperlipidemia E78.2 ; Gastroesophageal reflux disease with esophagitis K21.0 and Acquired hypothyroidism E03.9 [place] [address] [place] [id number] [address] [place] [address] Nov, [place] [address] [place] [id number] [place] [address] Oct, [place] [address] [place] [id number] [place] [address] Oct, [place] [address] [place] [id number] [place] [address] Oct, [place] [address] [place] [id number] [place] [address] Sep, Functional diarrhea K59.1 ; HTN (hypertension) I10 ; Diabetes mellitus E11.9 ; Depression F32.9 ; Overactive bladder N32.81 ; Mixed hyperlipidemia E78.2 ; Gastroesophageal reflux disease without esophagitis K21.9 ; Chronic pain G89.29 ; Insomnia G47.00 and Acquired hypothyroidism E03.9 [place] [address] [place] [id number] [address] [place] [address] Sep, [place] [address] [place] [id number] [place] [address] Aug, Encounter for immunization Z 23 [place] [address] [place] [id number] [address] [place] [address] Aug, [place] [address] [place] [id number] [place] [address] Jul, [place] [address] [place] [id number] [address] [place] [address] Jun, Type 2 diabetes mellitus wit hout complications E11.9 ; HTN (hypertension) I10 ; Hypothyroid E03.9 ; Neuropathy G62.9 ; Depression F32.9 ; Chronic pain G89.29 ; GERD (gastroesophageal reflux disease) K21.9 ; Insomnia G47.00 ; Overactive bladder N32.81 ; Mixed hyperlipidemia E78.2 ; Diarrhea of infectious origin A09 and Environmental allergies Z91.09 [place] [address] [address] Apr, [place] [address] [address] March, Hypothyroidism, unspecified E03.9 and Mixed hyperlipidemia E78.2 [place] [address] [address] March, Diabetes mellitus E11.9 ; HT N (hypertension) I10 ; Hypothyroid E03.9 ; Depression F32.9 ; Overactive bladder N32.81 ; Other chronic pain G89.29 ; Lumbago with sciatica, unspecified side M54.40 ; Environmental allergies Z91.09 and Gastroesophageal reflux disease, esophagitis presence not specified K21.9 [place] [address] [address] March, [address] [address] Jan, HTN (hypertension) I10 ; Hyp othyroid E03.9 ; Neuropathy G62.9 ; Diabetes mellitus E11.9 ; Chronic pain G89.29 ; GERD (gastroesophageal reflux disease) K21.9 ; Overactive bladder N32.81 and Depression F32.9 [place] [address] [address] Dec, Ear pain, left H92.02 ; HTN (hypertension) I10 ; Hypothyroid E03.9 ; Neuropathy G62.9 ; Diabetes mellitus E11.9 ; Depression F32.9 ; GERD (gastroesophageal reflux disease) K21.9 ; Insomnia G47.00 and Overactive bladder N32.81 [place] [address] [address] Nov, Overactive bladder N32.81 an d Chronic pain G89.29 [place] [address] [address] Nov, Kidney failure N19 [place] [address] [address] Nov, [place] [address] [address] Nov, [place] [address] [address] Nov, Diabetes mellitus E11.9 ; De pression F32.9 ; Chronic pain G89.29 ; GERD (gastroesophageal reflux disease) K21.9 ; Insomnia G47.00 ; HTN (hypertension) I10 ; Hypothyroid E03.9 ; COPD (chronic obstructive pulmonary disease) J44.9 ; Bladder incontinence R32 and Incontinence R32 [place] [address] [address] Sep, Type 2 diabetes mellitus wit h foot ulcer E11.621 and Chromosomal abnormality, 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 [place] [address] [address] Sep, [place] [address] [address] Aug, [place] [address] [address] Aug, [place] [address] [address] Aug, HTN (hypertension) I10 ; Enc ounter for immunization Z23 ; Hypothyroid E03.9 ; Neuropathy G62.9 ; Diabetes mellitus E11.9 ; Depression F32.9 ; Chronic pain G89.29 ; GERD (gastroesophageal reflux disease) K21.9 ; Insomnia G47.00 and COPD (chronic obstructive pulmonary disease) J44.9 [place] [address] [address] Jun, [facility] [address] [place] [address] Jun, [facility] [address] [place] [address] May, Essential hypertension, ivis gn 401.1 ; Unspecified hypothyroidism 244.9 ; Insomnia, unspecified 780.52 ; Shortness of breath 786.05 ; Depression 311 ; COPD (chronic obstructive pulmonary disease) 496 ; GERD (gastroesophageal reflux disease) 530.81 and Diabetes 1.5, 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 [facility] [address] [address] May, [facility] [address] [address] May, [facility] [address] [address] May, Shortness of breath 786.05 ; Essential hypertension, benign 401.1 ; Diabetes mellitus 250.00 ; Hyperlipidemia 272.4 ; Hypothyroid 244.9 ; Insomnia 780.52 and Cough 786.2 [facility] [address] [place] [id number] [address] [place] [address] Apr, [facility] [address] [place] [id number] [address] [place] [address] March, Shortness of breath 786.05 ; Nausea with vomiting 787.01 ; Essential hypertension, benign 401.1 ; Diabetes mellitus 250.00 ; Hyperlipidemia 272.4 and Hypothyroid 244.9 [facility] [address] [place] [id number] [address] [place] [address] Feb, [facility] [address] [address] Feb, [facility] [address] [place] [id number] [address] [place] [address] Jan, [facility] [address] [place] [id number] [address] [place] [address] Jan, [facility] [address] [id number] [address] [place] [address], [place] [address] Jan, [facility] [address] [id number] [address] [place] [address], [place] [address] Jan, [facility] [address] [id number] [address] [place] [address], [place] [address] Jan, [facility] [address] [id number] [address] [place] [address], [place] [address] Jan, [facility] [address] [id number] [address] [place] [address], [place] [address] Jan, [facility] [address] [id number] [address] [place] [address], [place] [address] Jan, [facility] [address] [id number] [address] [place] [address] Jan, [facility] [address] [id number] [address] [place] [address], [place] [address] Jan, [facility] [address] [id number] [address] [place] [address], [place] [address] Dec, 2014 [facility] [address] [id number] [address] [place] [address] Dec, [facility] [address] [id number] [address] [place] [address], [place] [address] Dec, 2014 [facility] [address] [id number] [address] [place] [address] Dec, 2014 [facility] [address] [id number] [address] [place] [address], [place] [address] Dec, 2014 [facility] [address] [id number] [address] [place] [address] Dec, 2014 [facility] [address] [id number] [address] [place] [address] Dec, 2014 [facility] [address] [id number] [address] [place] [address], [place] [address] Dec, 2014 [facility] [address] [id number] [address] [place] [address], [place] [address] Dec, 2014 [facility] [address] [id number] [address] [place] [address], [place] [address] Dec, 2014 [facility] [address] [id number] [address] [place] [address], [place] [address] Oct, [facility] [address] [id number] [address] [place] [address], [place] [address] Oct, [facility] [address] [id number] [address] [place] [address], [place] [address] Oct, [facility] [address] [id number] [address] [place] [address], [place] [address] Oct, [facility] [address] [id number] [address] [place] [address], [place] [address] Oct, [facility] [address] [id number] [address] [place] [address], [place] [address] Oct, [facility] [address] [id number] [address] [place] [address], [place] [address] Oct, [facility] [address] [id number] [address] [place] [address], [place] [address] Oct, [facility] [address] [id number] [address] [place] [address], [place] [address] Oct, [facility] [address] [id number] [address] [place] [address], [place] [address] Oct, [facility] [address] [id number] [address] [place] [address], [place] [address] Oct, [facility] [address] [id number] [address] [place] [address], [place] [address] Oct, [facility] [address] [id number] [address] [place] [address], [place] [address] Oct, [facility] [address] [id number] [address] [place] [address], [place] [address] Oct, [facility] [address] [id number] [address] [place] [address], [place] [address] Sep, [facility] [address] [id number] [address] [place] [address], [place] [address] Sep, [facility] [address] [id number] [address] [place] [address], [place] [address] Sep, [facility] [address] [id number] [address] [place] [address], [place] [address] Sep, [facility] [address] [id number] [address] [place] [address], [place] [address] Sep, [facility] [address] [id number] [address] [place] [address], [place] [address] Sep, [facility] [address] [id number] [address] [place] [address], [place] [address] Sep, [facility] [address] [id number] [address] [place] [address], [place] [address] Sep, [facility] [address] [id number] [address] [place] [address], [place] [address] Sep, [facility] [address] [id number] [address] [place] [address], [place] [address] Aug, [facility] [address] [id number] [address] [place] [address], [place] [address] Aug, [facility] [address] [id number] [address] [place] [address], [place] [address] Aug, [facility] [address] [id number] [address] [place] [address], [place] [address] Aug, [facility] [facility] [address] [id number] [address] [place] [address], [place] [address] 16 Aug, 2014 [facility] [address] [id number] [address] [place] [address], [place] [address] Aug, [facility] [address] [id number] [address] [place] [address], [place] [address] Aug, [facility] [address] [id number] [address] [place] [address], [place] [address] Aug, [facility] [address] [id number] [address] [place] [address], [place] [address] Aug, [facility] [address] [id number] [address] [place] [address], [place] [address] Jul, [facility] [address] [id number] [address] [place] [address], [place] [address] Jul, [facility] [address] [id number] [address] [place] [address], [place] [address] Jul, [facility] [address] [id number] [address] [place] [address], [place] [address] Jul, [facility] [address] [id number] [address] [place] [address], [place] [address] Jul, [facility] [address] [id number] [address] [place] [address], [place] [address] Jul, [facility] [address] [id number] [address] [place] [address], [place] [address] Jul, [facility] [address] [id number] [address] [place] [address], [place] [address] Jul, [facility] [address] [id number] [address] [place] [address], [place] [address] Jul, [facility] [address] [id number] [address] [place] [address], [place] [address] Jul, [facility] [address] [id number] [address] [place] [address], [place] [address] Jun, [facility] [address] [id number] [address] [place] [address], [place] [address] Jun, [facility] [address] [id number] [facility] [place] [address] Jun, [facility] [address] [id number] [address] [place] [address], [place] [address] Jun, [facility] [address] [id number] [facility] [place] [address] Jun, [facility] [address] [id number] [address] [place] [address], [place] [address] Jun, [facility] [address] [id number] [address] [place] [address], [place] [address] Jun, [facility] [address] [id number] [address] [place] [address], [place] [address] Jun, [facility] [address] [id number] [address] [place] [address], [place] [address] Jun, [facility] [address] [id number] [address] [place] [address], [place] [address] Jun, [facility] [address] [id number] [address] [place] [address], [place] [address] Jun, [facility] [address] [id number] [address] [place] [address], [place] [address] Jun, [facility] [address] [id number] [address] [place] [address], [place] [address] May, [facility] [address] [id number] [address] [place] [address], [place] [address] May, [facility] [address] [id number] [address] [place] [address], [place] [address] May, [facility] [address] [id number] [address] [place] [address], [place] [address] May, [facility] [address] [id number] [address] [place] [address], [place] [address] May, [facility] [address] [id number] [address] [place] [address], [place] [address] May, [facility] [address] [id number] [address] [place] [address], [place] [address] March, [facility] [address] [id number] [address] [place] [address], [place] [address] March, [facility] [address] [id number] [address] [place] [address], [place] [address] March, [facility] [address] [id number] [address] [place] [address], [place] [address] March, [facility] [place] [address] [id number] [address] [place] [address], [place] [address] March, [facility] [address] [id number] [address] [place] [address], [place] [address] March, [facility] [address] [id number] [address] [place] [address], [place] [address] Feb, [facility] [address] [id number] [address] [place] [address], [place] [address] Feb, [facility] [place] [address] [id number] [address] [place] [address], [place] [address] Feb, [facility] [address] [id number] [address] [place] [address], [place] [address] Feb, [facility] [address] [id number] [address] [place] [address], [place] [address] Jan, [facility] [address] [id number] [address] [place] [address], [place] [address] Jan, [facility] [address] [id number] [address] [place] [address], [place] [address] Jan, [facility] [address] [id number] [address] [place] [address], [place] [address] Jan, [facility] [address] [id number] [address] [place] [address], [place] [address] Jan, [facility] [address] [id number] [address] [place] [address], [place] [address] Jan, [facility] [address] [id number] [address] [place] [address], [place] [address] Jan, [facility] [address] [id number] [address] [place] [address], [place] [address] Jan, [facility] [address] [id number] [address] [place] [address], [place] [address] Jan, [facility] [address] [id number] [address] [place] [address], [place] [address] Jan, [facility] [address] [id number] [address] [place] [address], [place] [address] Jan, [facility] [address] [id number] [address] [place] [address], [place] [address] Jan, [facility] [address] [id number] [address] [place] [address], [place] [address] Dec, [facility] [address] [id number] [address] [place] [address], [place] [address] Dec, [facility] [address] [id number] [address] [place] [address], [place] [address] Dec, [facility] [address] [id number] [address] [place] [address], [place] [address] Dec, [facility] [address] [id number] [address] [place] [address], [place] [address] Dec, [facility] [address] [id number] [address] [place] [address], [place] [address] Dec, [facility] [address] [id number] [address] [place] [address], [place] [address] Nov, [facility] [address] [id number] [address] [place] [address], [place] [address] Nov, [facility] [address] [id number] [address] [place] [address], [place] [address] 13 Oct, 2013 [facility] [address] [id number] [address] [place] [address], [place] [address] Oct, [facility] [address] [id number] [address] [place] [address], [place] [address] Oct, [facility] [address] [id number] [address] [place] [address], [place] [address] Oct, [facility] [address] [id number] [address] [place] [address], [place] [address] Oct, [facility] [address] [id number] [address] [place] [address], [place] [address] Oct, [facility] [address] [id number] [address] [place] [address], [place] [address] Sep, [facility] [address] [id number] [address] [place] [address], [place] [address] Sep, [facility] [address] [id number] [address] [place] [address], [place] [address] Sep, [facility] [address] [id number] [address] [place] [address], [place] [address] Sep, [facility] [address] [id number] [address] [place] [address], [place] [address] Aug, [facility] [address] [id number] [address] [place] [address], [place] [address] Aug, [facility] [address] [id number] [address] [place] [address], [place] [address] 08 Aug, 2013 [facility] [address] [id number] [address] [place] [address], [place] [address] 17 Jul, 2013 [facility] [address] [id number] [address] [place] [address], [place] [address] 14 Jul, 2013 [facility] [address] [id number] [address] [place] [address], [place] [address] Jul, [facility] [address] [id number] [address] [place] [address], [place] [address] Jun, [facility] [address] [id number] [address] [place] [address], [place] [address] Jun, [facility] [address] [id number] [address] [place] [address], [place] [address] Jun, [facility] [address] [id number] [address] [place] [address], [place] [address] Apr, [facility] [address] [id number] [address] [place] [address], [place] [address] Apr, [facility] [address] [id number] [address] [place] [address], [place] [address] March, [facility] [address] [id number] [address] [place] [address], [place] [address] March, [facility] [place] [address] [id number] [address] [place] [address], [place] [address] March, [facility] [address] [id number] [address] [place] [address], [place] [address] March, [facility] [address] [id number] [address] [place] [address], [place] [address] Feb, [facility] [address] [id number] [address] [place] [address], [place] [address] Jan, [facility] [address] [id number] [address] [place] [address], [place] [address] Dec, [facility] [address] [id number] [address] [place] [address], [place] [address] Dec, [facility] [address] [id number] [address] [place] [address], [place] [address] Dec, [facility] [address] [id number] [address] [place] [address], [place] [address] Nov, [facility] [address] [id number] [address] [place] [address] Oct, [facility] [address] [id number] [address] [place] [address], [place] [address] Oct, [facility] [address] [id number] [address] [place] [address] Sep, [facility] [address] [id number] [address] [place] [address], [place] [address] Sep, [facility] [address] [id number] [address] [place] [address], [place] [address] Sep, [facility] [address] [id number] [address] [place] [address], [place] [address] Sep, [facility] [address] [id number] [address] [place] [address], [place] [address] Sep, [facility] [address] [id number] [address] [place] [address], [place] [address] Sep, [facility] [address] [id number] [address] [place] [address], [place] [address] Sep, [facility] [address] [id number] [address] [place] [address], [place] [address] Aug, [facility] [address] [id number] [address] [place] [address], [place] [address] 16 Aug, 2012 [facility] [address] [id number] [address] [place] [address] Aug, [facility] [address] [id number] [address] [place] [address] Aug, [facility] [address] [id number] [address] [place] [address] Aug, [facility] [address] [id number] [address] [place] [address] Aug, [facility] [address] [id number] [address] [place] [address] Aug, [facility] [address] [id number] [address] [place] [address], [place] [address] Aug, [facility] [address] [id number] [address] [place] [address], [place] [address] Jul, [facility] [address] [id number] [address] [place] [address], [place] [address] Jul, [facility] [address] [id number] [address] [place] [address], [place] [address] Jun, [facility] [address] [id number] [address] [place] [address], [place] [address] May, [facility] [address] [id number] [address] [place] [address], [place] [address] Apr, [facility] [address] [id number] [address] [place] [address], [place] [address] Apr, [facility] [address] [id number] [address] [place] [address], [place] [address] Apr, [facility] [address] [id number] [address] [place] [address], [place] [address] March, [facility] [address] [id number] [address] [place] [address], [place] [address] March, [facility] [address] [id number] [address] [place] [address], [place] [address] March, [facility] [address] [id number] [address] [place] [address], [place] [address] March, [facility] [address] [id number] [address] [place] [address], [place] [address] March, [facility] [address] [id number] [address] [place] [address], [place] [address] March, [facility] [address] [id number] [address] [place] [address], [place] [address] March, [facility] [address] [id number] [address] [place] [address], [place] [address] 22 Jan, 2012 [facility] [address] [id number] [facility] [place] [address] Jan, [facility] [address] [id number] [address] [place] [address], [place] [address] 20 Jan, 2012 [facility] [address] [id number] [address] [place] [address], [place] [address] 13 Jan, 2012 [facility] [address] [id number] [address] [place] [address], [place] [address] 12 Jan, 2012 [facility] [address] [id number] [address] [place] [address], [place] [address] 08 Dec, 2011 [facility] [address] [id number] [address] [place] [address], [place] [address] 06 Dec, 2011 [facility] [address] [id number] [address] [place] [address], [place] [address] Nov, [facility] [address] [id number] [address] [place] [address], [place] [address] Nov, [facility] [address] [id number] [address] [place] [address], [place] [address] Nov, [facility] [address] [id number] [address] [place] [address], [place] [address] Nov, [facility] [address] [id number] [address] [place] [address], [place] [address] Oct, [facility] [address] [id number] [address] [place] [address], [place] [address] Oct, [facility] [address] [id number] [address] [place] [address], [place] [address] 14 Sep, 2011 [facility] [address] [id number] [address] [place] [address], [place] [address] 10 Sep, 2011 [facility] [address] [id number] [address] [place] [address], [place] [address] 10 Sep, 2011 [facility] [address] [id number] [address] [place] [address], [place] [address] 11 May, 2011 [facility] [address] [id number] [address] [place] [address], [place] [address] Nov, [facility] [address] [id number] [address] [place] [address], [place] [address] 29 Oct, 2010 [facility] [address] [id number] [address] [place] [address], [place] [address] 14 Oct, 2010 [facility] [address] [id number] [address] [place] [address], [place] [address] 08 Oct, 2010 [facility] [address] [id number] [address] [place] [address], [place] [address] 15 Sep, 2010 [facility] [address] [id number] [address] [place] [address], [place] [address] Sep, [facility] [address] [id number] [address] [place] [address], [place] [address] Aug, [facility] [address] [id number] [address] [place] [address], [place] [address] March, [facility] [address] [id number] [address] [place] [address], [place] [address] Oct, [facility] [address] [id number] [address] [place] [address], [place] [address] 17 Oct, 2009 [facility] [address] [id number] [address] [place] [address], [place] [address] Oct, [facility] [address] [id number] [address] [place] [address], [place] [address] Oct, [facility] [address] [id number] [address] [place] [address], [place] [address] Sep, [facility] [address] [id number] [address] [place] [address], [place] [address] Sep, [facility] [address] [id number] [address] [place] [address], [place] [address] Sep, [facility] [address] [facility] [id number] [address] [place] [address] Aug, [facility] [address] [facility] [place] [id number] [address] [place] [id number] Aug, [facility] [address] [facility] [id number] [address] [place] [id number] Aug, [facility] [address] [facility] [place] [id number] [address] [place] [id number] Jan, IMMUNIZATIONS No Known Immunizations SOCIAL HISTORY Never Assessed REASON FOR VISIT medical question PLAN OF CARE VITAL SIGNS MEDICATIONS [...]
--- OUTSIDE RECORDS SUMMARY | 2020-06-13 16:29 | XMS REPORT ---
Author Author Jah PARKER Organization [facility] [place] Address [address] [place] [address] Care Team Providers Care Supervisor Dock Name Role Phone PARKERPATRICIA Mckeon Unavailable PROBLEMS Type Condition ICD9-CM Code XEL16-AZ Code Onset Dates Condition S tatus SNOMED Code Problem Gastroesophageal reflux disease with esophagitis K 21.0 Active 713049465 Problem jail current use of insulin Z79.4 Active 607133933 Problem Irritable bowel syndrome with diarrhea K58.0 Active 003288098 Problem Chronic fatigue R53.82 Active 8422 9001 Problem Recurrent major depressive disorder, in partial remission F33.41 Active 44623687 Problem Essential (primary) hypertension I10 Active 46115717 Problem Type 2 diabetes mellitus with hyperglycemia E11.65 Active 65221609 Problem Current non-adherence to medical treatment Z91.19 Active 3400938 Problem Pulmonary emphysema, unspecified emphysema type J4 3.9 Active 08309518 Problem Neuropathy G62.9 Active 843503223 Problem Hypothyroid E03.9 Active 59224706 Problem Thrombocytosis D47.3 Active 70704 09 Problem Overactive bladder N32.81 Active 2 07938985 Problem Chronic pain G89.29 Active 9270506 1 Problem Mixed hyperlipidemia E78.2 Active 138462172 ALLERGIES Substance Reaction Event Type Date Status Trilipix nausea Drug Allergy March, Active Niacin rash Drug Allergy March, Active Metformin HCl diarrhea Drug Allergy March, Active Januvia diarrhea Drug Allergy March, Active Gemfibrozil diarrhea Drug Allergy March, Active Actos diarrhea Drug Allergy March, Active ENCOUNTERS Encounter Location Date Diagnosis [facility] [place] [address] [facility] [id number] [address] [place] [id number] Jul, [facility] [place] [address] [facility] [id number] [address] [place] [id number] Jun, [facility] [place] [address] [facility] [id number] [address] [place] [id number] Jun, [place] [address] [place] [id number] [place] [phone] Jun, Type 2 diabetes mellitus wit h hyperglycemia E11.65 ; [employer] current use of insulin Z79.4 ; Recurrent major depressive disorder, in partial remission F33.41 ; Hypothyroid E03.9 ; Candidal dermatitis B37.2 and Weakness generalized R53.1 [place] [address] [facility] [id number] [address] [place] [id number] May, [place] [address] [facility] [id number] [address] [place] [id number] May, [place] [address] [place] [id number] [address] [place] [id number] May, [place] [address] [place] [id number] [address] [place] [id number] May, Generalized abdominal pain R 10.84 and Candidal dermatitis B37.2 [place] [address] [place] [id number] [address] [place] [id number] May, [place] [address] [place] [id number] [address] [place] [id number] May, [place] [address] [place] [id number] [address] [place] [id number] May, Nodular radiologic density R 93.8 ; Weight loss, unintentional R63.4 and Pulmonary emphysema, unspecified emphysema type J43.9 [place] [address] [place] [id number] [address] [place] [id number] May, Chronic pain G89.29 [place] [address] [place] [id number] [address] [place] [id number] May, Syncope and collapse R55 ; C hronic fatigue R53.[address] lung screening R91.8 [place] [address] [place] [id number] [address] [place] [id number] May, [facility] [place] [address] [facility] [id number] [address] [place] [id number] Apr, Chronic fatigue R53.82 ; Abn ormal chest CT R93.8 ; Elevated erythrocyte sedimentation rate R70.0 ; Hypothyroid E03.9 and Recurrent major depressive disorder, in partial remission F33.41 [facility] [place] [address] [facility] [id number] [address] [place] [id number] Apr, Hypothyroid E03.9 [facility] [place] [address] [facility] [id number] [address] [place] [id number] Apr, Depression F32.9 [facility] [place] [address] [facility] [id number] [address] [place] [id number] Apr, [facility] [place] [address] [facility] [id number] [address] [place] [id number] March, [facility] [place] [address] [facility] [id number] [address] [place] [id number] March, Hypothyroid E03.9 [facility] [place] [address] [facility] [id number] [address] [place] [id number] March, Diabetes mellitus E11.9 and Hypothyroid E03.9 [facility] [place] [address] [facility] [id number] [address] [place] [id number] March, Diabetes mellitus E11.9 [facility] [place] [address] [facility] [id number] [address] [place] [id number] March, Hypothyroid E03.9 and Elevat ed liver enzymes R74.8 [facility] [place] [address] [facility] [id number] [address] [place] [id number] March, Type 2 diabetes mellitus wit h hyperglycemia E11.65 ; jail current use of insulin Z79.4 ; Pulmonary emphysema, unspecified emphysema type J43.9 ; Hypothyroid E03.9 ; Neuropathy G62.9 ; Mixed hyperlipidemia E78.2 ; Chronic pain G89.29 ; Gastroesophageal reflux disease with esophagitis K21.0 ; Irritable bowel syndrome with diarrhea K58.0 ; Overactive bladder N32.81 and Recurrent major depressive disorder, in partial remission F33.41 [place] [address] [id number] Feb, Chronic pain G89.29 [place] [address] [id number] Feb, Type 2 diabetes mellitus wit h hyperglycemia E11.65 and Skin lesion of scalp L98.9 [place] [address] [id number] Feb, [place] [address] [id number] Jan, Type 2 diabetes mellitus wit h [...] and Irritable bowel syndrome with diarrhea K58.0 [place] [address] [place] [id number] [address] [place] [id number] Jan, [place] [address] [id number] Jan, Controlled substance agreeme nt signed Z79.899 [place] [address] [place] [id number] [address] [place] [id number] Dec, Type 2 diabetes mellitus wit h hyperglycemia E11.65 ; Controlled substance agreement signed Z79.899 ; jail current use of insulin Z79.4 ; Essential (primary) hypertension I10 ; Hypothyroid E03.9 ; Neuropathy G62.9 ; Depression F32.9 ; Mixed hyperlipidemia E78.2 ; Irritable bowel syndrome with diarrhea K58.0 ; Gastroesophageal reflux disease with esophagitis K21.0 ; Thrombocytosis D47.3 ; Current non-adherence to medical treatment Z91.19 and Overweight (BMI 25.0-29.9) E66.3 [place] [address] [place] [id number] [address] [place] [id number] Dec, Controlled substance agreeme nt signed Z79.899 [place] [address] [place] [id number] [address] [place] [id number] Nov, Type 2 diabetes mellitus wit h hyperglycemia E11.65 and Current non- adherence to medical treatment Z91.19 [place] [address] [id number] Nov, [place] [address] [id number] Nov, Chronic pain G89.29 [place] [address] [id number] Nov, [place] [address] [id number] Nov, Hypothyroid E03.9 [place] [address] [id number] Nov, Hypothyroid E03.9 [place] [address] [id number] Nov, Pulmonary emphysema, unspeci fied emphysema type J43.9 and Irritable bowel syndrome with diarrhea K58.0 [place] [address] [place] [id number] [address] [place] [id number] Oct, [place] [address] [place] [id number] [address] [place] [id number] Oct, [place] [address] [id number] Oct, [place] [address] [place] [id number] [address] [place] [id number] Oct, [place] [address] [id number] Oct, Chronic pain G89.29 [place] [address] [id number] Oct, Diabetes mellitus E11.9 ; De pression F32.9 ; Mixed hyperlipidemia E78.2 ; Hypotension, unspecified hypotension type I95.9 ; Pulmonary emphysema, unspecified emphysema type J43.9 and Weight loss, unintentional R63.4 [place] [address] [id number] Oct, Chronic pain G89.29 [place] [address] [id number] Sep, Chronic pain G89.29 [place] [address] [id number] Sep, Hypothyroid E03.9 and Diabet es mellitus E11.[address] [address] Aug, Type 2 diabetes mellitus wit h hyperglycemia E11.65 ; [employer] current use of insulin Z79.4 ; Essential (primary) hypertension I10 ; Hypothyroid E03.9 ; Neuropathy G62.9 ; Chronic pain G89.29 ; Mixed hy perlipidemia E78.2 and Encounter for immunization Z23 [place] [address] [address] Aug, Chronic pain G89.29 [place] [address] [id number] Aug, Overactive bladder N32.81 ; Diabetes mellitus E11.9 and Chronic pain G89.29 [place] [address] [id number] Jul, [place] [address] [id number] Jun, [place] [address] [id number] Jun, [facility] [place] [address] [facility] [id number] [address] [place] [id number] Jun, Hypothyroid E03.9 [facility] [place] [address] [facility] [id number] [address] [place] [id number] Jun, Diabetes mellitus E11.9 ; Hy pothyroid E03.9 ; Neuropathy G62.9 ; Chronic pain G89.29 and Neck mass R22.1 [facility] [place] [address] [id number] [address] [place] [id number] Apr, [facility] [place] [address] [facility] [id number] [address] [place] [id number] Apr, Acute cystitis without hemat uria N30.00 [facility] [place] [address] [facility] [id number] [address] [place] [id number] March, [facility] [place] [address] [facility] [id number] [address] [place] [id number] March, [facility] [place] [address] [facility] [id number] [address] [place] [id number] March, Near syncope R55 [facility] [place] [address] [facility] [id number] [address] [place] [id number] Feb, [facility] [place] [address] [facility] [id number] [address] [place] [id number] Feb, Chronic pain G89.29 [facility] [place] [address] [facility] [id number] [address] [place] [id number] Feb, [facility] [place] [address] [facility] [id number] [address] [place] [id number] Feb, [facility] [place] [address] [facility] [id number] [address] [place] [id number] Jan, Chronic pain G89.29 [facility] [place] [address] [facility] [id number] [address] [place] [id number] Jan, [facility] [place] [address] [id number] 16 Jan, 2017 [facility] [place] [address] [id number] 14 Jan, 2017 Diabetes mellitus E11.9 ; Hy pothyroid E03.9 ; GERD (gastroesophageal reflux disease) K21.9 ; Insomnia G47.00 ; Functional diarrhea K59.1 ; Neuropathy G62.9 ; Depression F32.9 ; Chronic pain G89.29 ; Irritable bowel syndrome with diarrhea K58.0 ; Overactive bladder N32.81 ; Mixed hyperlipidemia E78.2 and Bronchitis J40 [facility] [place] [address] [id number] Dec, [facility] [place] [address] [id number] 24 Dec, 2016 [facility] [place] [address] [id number] Dec, [facility] [place] [address] [id number] 24 Dec, 2016 [facility] [place] [address] [id number] Dec, Chronic pain G89.29 [facility] [place] [address] [id number] 23 Dec, 2016 [facility] [place] [address] [id number] 20 Dec, 2016 [facility] [place] [address] [place] [id number] [address] [place] [id number] 17 Dec, 2016 Type 2 diabetes mellitus wit h foot ulcer E11.621 [facility] [place] [address] [id number] 17 Dec, 2016 Type 2 diabetes mellitus wit h foot ulcer E11.621 [facility] [place] [address] [id number] 14 Dec, 2016 HTN (hypertension) I10 ; Dep ression F32.9 ; Type 2 diabetes mellitus with foot ulcer E11.621 ; Functional diarrhea K59.1 ; Irritable bowel syndrome with diarrhea K58.0 ; Chronic pain G89.29 ; Insomnia G47.00 ; Overactive bladder N32.81 ; Mixed hyperlipidemia E78.2 ; Gastroesophageal reflux disease with esophagitis K21.0 and Acquired hypothyroidism E03.9 [place] [address] [place] [id number] [place] [phone] Nov, [place] [address] [place] [id number] [place] [id number] Oct, [place] [address] [place] [id number] [place] [id number] Oct, [place] [address] [place] [id number] [place] [phone] Oct, [place] [address] [place] [id number] [place] [id number] Sep, Functional diarrhea K59.1 ; HTN (hypertension) I10 ; Diabetes mellitus E11.9 ; Depression F32.9 ; Overactive bladder N32.81 ; Mixed hyperlipidemia E78.2 ; Gastroesophageal reflux disease without esophagitis K21.9 ; Chronic pain G89.29 ; Insomnia G47.00 and Acquired hypothyroidism E03.9 [place] [address] [place] [id number] [address] [place] [id number] Sep, [place] [address] [place] [id number] [place] [phone] Aug, Encounter for immunization Z 23 [place] [address] [facility] [id number] [address] [place] [id number] Aug, [place] [address] [place] [id number] [address] [place] [id number] Jul, [place] [address] [place] [id number] [address] [place] [id number] Jun, Type 2 diabetes mellitus wit hout complications E11.9 ; HTN (hypertension) I10 ; Hypothyroid E03.9 ; Neuropathy G62.9 ; Depression F32.9 ; Chronic pain G89.29 ; GERD (gastroesophageal reflux disease) K21.9 ; Insomnia G47.00 ; Overactive bladder N32.81 ; Mixed hyperlipidemia E78.2 ; Diarrhea of infectious origin A09 and Environmental allergies Z91.09 [place] [address] [id number] Apr, [place] [address] [id number] March, Hypothyroidism, unspecified E03.9 and Mixed hyperlipidemia E78.2 [place] [address] [id number] March, Diabetes mellitus E11.9 ; HT N (hypertension) I10 ; Hypothyroid E03.9 ; Depression F32.9 ; Overactive bladder N32.81 ; Other chronic pain G89.29 ; Lumbago with sciatica, unspecified side M54.40 ; Environmental allergies Z91.09 and Gastroesophageal reflux disease, esophagitis presence not specified K21.9 [place] [address] [address] March, [place] [address] [id number] Jan, HTN (hypertension) I10 ; Hyp othyroid E03.9 ; Neuropathy G62.9 ; Diabetes mellitus E11.9 ; Chronic pain G89.29 ; GERD (gastroesophageal reflux disease) K21.9 ; Overactive bladder N32.81 and Depression F32.9 [place] [address] [id number] Dec, Ear pain, left H92.02 ; HTN (hypertension) I10 ; Hypothyroid E03.9 ; Neuropathy G62.9 ; Diabetes mellitus E11.9 ; Depression F32.9 ; GERD (gastroesophageal reflux disease) K21.9 ; Insomnia G47.00 and Overactive bladder N32.81 [place] [address] [id number] Nov, Overactive bladder N32.81 an d Chronic pain G89.29 [place] [address] [id number] Nov, Kidney failure N19 [place] [address] [id number] Nov, [place] [address] [id number] Nov, [place] [address] [id number] Nov, Diabetes mellitus E11.9 ; De pression F32.9 ; Chronic pain G89.29 ; GERD (gastroesophageal reflux disease) K21.9 ; Insomnia G47.00 ; HTN (hypertension) I10 ; Hypothyroid E03.9 ; COPD (chronic obstructive pulmonary disease) J44.9 ; Bladder incontinence R32 and Incontinence R32 [place] [address] [address] Sep, Type 2 diabetes mellitus wit h foot ulcer E11.621 and Chromosomal abnormality, 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 [place] [address] [address] Sep, [place] [address] [address] Aug, [place] [address] [address] Aug, [place] [address] [address] Aug, HTN (hypertension) I10 ; Enc ounter for immunization Z23 ; Hypothyroid E03.9 ; Neuropathy G62.9 ; Diabetes mellitus E11.9 ; Depression F32.9 ; Chronic pain G89.29 ; GERD (gastroesophageal reflux disease) K21.9 ; Insomnia G47.00 and COPD (chronic obstructive pulmonary disease) J44.9 [place] [address] [id number] Jun, [facility] [place] [address] [id number] Jun, [facility] [place] [address] [id number] May, Essential hypertension, ivis gn 401.1 ; Unspecified hypothyroidism 244.9 ; Insomnia, unspecified 780.52 ; Shortness of breath 786.05 ; Depression 311 ; COPD (chronic obstructive pulmonary disease) 496 ; GERD (gastroesophageal reflux disease) 530.81 and Diabetes 1.5, 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 [facility] [place] [address] [id number] May, [facility] [place] [address] [id number] May, [facility] [place] [address] [id number] May, Shortness of breath 786.05 ; Essential hypertension, benign 401.1 ; Diabetes mellitus 250.00 ; Hyperlipidemia 272.4 ; Hypothyroid 244.9 ; Insomnia 780.52 and Cough 786.2 [facility] [place] [address] [id number] Apr, [facility] [place] [address] [id number] March, Shortness of breath 786.05 ; Nausea with vomiting 787.01 ; Essential hypertension, benign 401.1 ; Diabetes mellitus 250.00 ; Hyperlipidemia 272.4 and Hypothyroid 244.9 [facility] [place] [address] [id number] Feb, [facility] [place] [address] [id number] Feb, [facility] [place] [address] [id number] Jan, [facility] [address] [id number] [address] [place] [address], [place] [id number] Jan, [facility] [address] [id number] [address] [place] [address], [place] [id number] Jan, [facility] [address] [id number] [address] [place] [address], [place] [id number] Jan, [facility] [address] [id number] [address] [place] [address], [place] [id number] Jan, [facility] [address] [id number] [address] [place] [address], [place] [id number] Jan, [facility] [address] [id number] [address] [place] [address], [place] [id number] Jan, [facility] [address] [id number] [address] [place] [address], [place] [id number] Jan, [facility] [address] [id number] [address] [place] [address], [place] [id number] Jan, [facility] [address] [id number] [address] [place] [address], [place] [id number] Jan, [facility] [address] [id number] [address] [place] [address], [place] [id number] Dec, [facility] [address] [id number] [address] [place] [id number] Dec, [facility] [address] [id number] [address] [place] [id number] Dec, 2014 [facility] [address] [id number] [address] [place] [address], [place] [id number] Dec, [facility] [address] [id number] [address] [place] [address], [place] [id number] Dec, [facility] [address] [id number] [address] [place] [id number] Dec, 2014 [facility] [address] [id number] [address] [place] [id number] Dec, 2014 [facility] [address] [id number] [address] [place] [address], [place] [id number] Dec, 2014 [facility] [address] [id number] [address] [place] [address], [place] [id number] Dec, 2014 [facility] [address] [id number] [address] [place] [address], [place] [id number] Dec, 2014 [facility] [address] [id number] [address] [place] [address], [place] [id number] Oct, [facility] [address] [id number] [address] [place] [address], [place] [id number] Oct, [facility] [address] [id number] [address] [place] [address], [place] [id number] Oct, [facility] [address] [id number] [address] [place] [address], [place] [id number] Oct, [facility] [address] [id number] [address] [place] [address], [place] [id number] Oct, [facility] [address] [id number] [address] [place] [address], [place] [id number] Oct, [facility] [address] [id number] [address] [place] [address], [place] [id number] Oct, [facility] [address] [id number] [address] [place] [address], [place] [id number] Oct, [facility] [address] [id number] [address] [place] [address], [place] [id number] Oct, [facility] [address] [id number] [address] [place] [address], [place] [id number] Oct, [facility] [address] [id number] [address] [place] [address], [place] [id number] Oct, [facility] [address] [id number] [address] [place] [address], [place] [id number] Oct, [facility] [address] [id number] [address] [place] [address], [place] [id number] Oct, [facility] [address] [id number] [address] [place] [address], [place] [id number] Oct, [facility] [address] [id number] [address] [place] [address], [place] [id number] Sep, [facility] [address] [id number] [address] [place] [address], [place] [id number] Sep, [facility] [address] [id number] [address] [place] [address], [place] [id number] Sep, [facility] [address] [id number] [address] [place] [address], [place] [id number] Sep, [facility] [facility] [address] [id number] [address] [place] [address], [place] [id number] Sep, [facility] [address] [id number] [address] [place] [address], [place] [id number] Sep, [facility] [address] [id number] [address] [place] [address], [place] [id number] Sep, [facility] [address] [id number] [address] [place] [address], [place] [id number] Sep, [facility] [address] [id number] [address] [place] [address], [place] [id number] Sep, [facility] [address] [id number] [address] [place] [address], [place] [id number] Aug, [facility] [address] [id number] [address] [place] [address], [place] [id number] Aug, [facility] [address] [id number] [address] [place] [address], [place] [id number] Aug, [facility] [address] [id number] [address] [place] [address], [place] [id number] Aug, [facility] [address] [id number] [address] [place] [address], [place] [id number] 16 Aug, 2014 [facility] [address] [id number] [address] [place] [address], [place] [id number] Aug, [facility] [address] [id number] [address] [place] [address], [place] [id number] Aug, [facility] [address] [id number] [address] [place] [address], [place] [id number] Aug, [facility] [address] [id number] [address] [place] [address], [place] [id number] Aug, [facility] [address] [id number] [address] [place] [address], [place] [id number] 29 Jul, 2014 [facility] [address] [id number] [address] [place] [address], [place] [id number] 29 Jul, 2014 [facility] [address] [id number] [address] [place] [address], [place] [id number] Jul, 2013 [facility] [address] [id number] [address] [place] [address], [place] [id number] Jul, 2013 [facility] [address] [id number] [address] [place] [address], [place] [id number] Jul, [facility] [address] [id number] [address] [place] [address], [place] [id number] Jul, 2013 [facility] [address] [id number] [address] [place] [address], [place] [id number] Jul, 2013 [facility] [address] [id number] [address] [place] [address], [place] [id number] Jul, 2013 [facility] [address] [id number] [address] [place] [address], [place] [id number] Jul, [facility] [address] [id number] [address] [place] [address], [place] [id number] Jul, [facility] [address] [id number] [address] [place] [address], [place] [id number] Jun, [facility] [address] [id number] [facility] [place] [id number] Jun, [facility] [address] [id number] [facility] [place] [id number] Jun, [facility] [address] [id number] [facility] [id number] Jun, [facility] [address] [id number] [facility] [place] [address] Jun, [facility] [address] [id number] [facility] [place] [id number] Jun, [facility] [address] [id number] [address] [place] [address], [place] [id number] Jun, [facility] [address] [id number] [address] [place] [address], [place] [id number] Jun, [facility] [address] [id number] [address] [place] [address], [place] [id number] Jun, [facility] [address] [id number] [address] [place] [address], [place] [id number] Jun, [facility] [address] [id number] [address] [place] [address], [place] [id number] Jun, [facility] [address] [id number] [address] [place] [address], [place] [id number] Jun, [facility] [address] [id number] [address] [place] [address], [place] [id number] May, [facility] [address] [id number] [address] [place] [address], [place] [id number] May, [facility] [address] [id number] [address] [place] [address], [place] [id number] May, [facility] [address] [id number] [address] [place] [address], [place] [id number] May, [facility] [address] [id number] [address] [place] [address], [place] [id number] May, [facility] [address] [id number] [address] [place] [address], [place] [id number] May, [facility] [address] [id number] [address] [place] [address], [place] [id number] March, [facility] [address] [id number] [address] [place] [address], [place] [id number] March, [facility] [address] [id number] [address] [place] [address], [place] [id number] March, [facility] [address] [id number] [address] [place] [address], [place] [id number] March, [facility] [address] [id number] [address] [place] [address], [place] [id number] March, [facility] [address] [id number] [address] [place] [address], [place] [id number] March, [facility] [address] [id number] [address] [place] [address], [place] [id number] Feb, [facility] [address] [id number] [address] [place] [address], [place] [id number] Feb, [facility] [address] [id number] [address] [place] [address], [place] [id number] Feb, [facility] [address] [id number] [address] [place] [address], [place] [id number] Feb, [facility] [address] [id number] [address] [place] [address], [place] [id number] Jan, [facility] [address] [id number] [address] [place] [address], [place] [id number] Jan, [facility] [address] [id number] [address] [place] [address], [place] [id number] Jan, [facility] [address] [id number] [address] [place] [address], [place] [id number] Jan, [facility] [address] [id number] [address] [place] [address], [place] [id number] Jan, [facility] [address] [id number] [address] [place] [address], [place] [id number] Jan, [facility] [address] [id number] [address] [place] [address], [place] [id number] Jan, [facility] [address] [id number] [address] [place] [address], [place] [id number] Jan, [facility] [address] [id number] [address] [place] [address], [place] [id number] Jan, [facility] [address] [id number] [address] [place] [address], [place] [id number] Jan, [facility] [address] [id number] [address] [place] [address], [place] [id number] Jan, [facility] [address] [id number] [address] [place] [address], [place] [id number] Jan, [facility] [address] [id number] [address] [place] [address], [place] [id number] Dec, [facility] [address] [id number] [address] [place] [address], [place] [id number] Dec, [facility] [address] [id number] [address] [place] [address], [place] [id number] Dec, [facility] [address] [id number] [address] [place] [address], [place] [id number] Dec, [facility] [address] [id number] [address] [place] [id number] Dec, [facility] [address] [id number] [address] [place] [address], [place] [id number] Dec, [facility] [address] [id number] [address] [place] [id number] Nov, [facility] [address] [id number] [address] [place] [id number] Nov, [facility] [address] [id number] [address] [place] [address], [place] [id number] Oct, [facility] [address] [id number] [address] [place] [address], [place] [id number] Oct, [facility] [address] [id number] [address] [place] [address], [place] [id number] Oct, [facility] [address] [id number] [address] [place] [address], [place] [id number] Oct, [facility] [address] [id number] [address] [place] [address], [place] [id number] Oct, [facility] [address] [id number] [address] [place] [address], [place] [id number] Oct, [facility] [address] [id number] [address] [place] [address], [place] [id number] Sep, [facility] [address] [id number] [address] [place] [address], [place] [id number] Sep, [facility] [address] [id number] [address] [place] [address], [place] [id number] Sep, [facility] [address] [id number] [address] [place] [address], [place] [id number] Sep, [facility] [address] [id number] [address] [place] [address], [place] [id number] Aug, [facility] [address] [id number] [address] [place] [address], [place] [id number] Aug, [facility] [address] [id number] [address] [place] [address], [place] [id number] 08 Aug, 2013 [facility] [address] [id number] [address] [place] [address], [place] [id number] 17 Jul, 2013 [facility] [address] [id number] [address] [place] [address], [place] [id number] 14 Jul, 2013 [facility] [address] [id number] [address] [place] [address], [place] [id number] Jul, [facility] [address] [id number] [address] [place] [address], [place] [id number] Jun, [facility] [address] [id number] [address] [place] [address], [place] [id number] Jun, [facility] [address] [id number] [address] [place] [address], [place] [id number] Jun, [facility] [address] [id number] [address] [place] [address], [place] [id number] Apr, [facility] [address] [id number] [address] [place] [address], [place] [id number] Apr, [facility] [address] [id number] [address] [place] [address], [place] [id number] March, [facility] [address] [id number] [address] [place] [address], [place] [id number] March, [facility] [address] [id number] [address] [place] [address], [place] [id number] March, [facility] [address] [id number] [address] [place] [address], [place] [id number] March, [facility] [address] [id number] [address] [place] [address], [place] [id number] Feb, [facility] [address] [id number] [address] [place] [address], [place] [id number] Jan, [facility] [address] [id number] [address] [place] [address], [place] [id number] Dec, [facility] [address] [id number] [address] [place] [address], [place] [id number] Dec, [facility] [address] [id number] [address] [place] [address], [place] [id number] Dec, [facility] [address] [id number] [address] [place] [address], [place] [id number] Nov, [facility] [address] [id number] [address] [place] [address], [place] [id number] 13 Oct, 2012 [facility] [address] [id number] [address] [place] [address], [place] [id number] 13 Oct, 2012 [facility] [address] [id number] [address] [place] [address], [place] [id number] Sep, [facility] [address] [id number] [address] [place] [address], [place] [id number] Sep, [facility] [address] [id number] [address] [place] [address], [place] [id number] Sep, [facility] [address] [id number] [address] [place] [address], [place] [id number] Sep, [facility] [address] [id number] [address] [place] [address], [place] [id number] Sep, [facility] [address] [id number] [address] [place] [address], [place] [id number] Sep, [facility] [address] [id number] [address] [place] [address], [place] [id number] Sep, [facility] [address] [id number] [address] [place] [address], [place] [id number] Aug, [facility] [address] [id number] [address] [place] [address], [place] [id number] 16 Aug, 2012 [facility] [address] [id number] [address] [place] [address], [place] [id number] Aug, [facility] [address] [id number] [address] [place] [address], [place] [id number] Aug, [facility] [address] [id number] [address] [place] [address], [place] [id number] Aug, [facility] [address] [id number] [address] [place] [address], [place] [id number] Aug, [facility] [address] [id number] [address] [place] [address], [place] [id number] Aug, [facility] [address] [id number] [address] [place] [address], [place] [id number] Aug, [facility] [address] [id number] [address] [place] [address], [place] [id number] Jul, [facility] [address] [id number] [address] [place] [address], [place] [id number] Jul, [facility] [address] [id number] [address] [place] [address], [place] [id number] Jun, [facility] [address] [id number] [address] [place] [address], [place] [id number] May, [facility] [address] [id number] [address] [place] [address], [place] [id number] Apr, [facility] [address] [id number] [address] [place] [address], [place] [id number] Apr, [facility] [address] [id number] [address] [place] [address], [place] [id number] Apr, [facility] [address] [id number] [address] [place] [address], [place] [id number] March, [facility] [address] [id number] [address] [place] [address], [place] [id number] March, [facility] [address] [id number] [address] [place] [address], [place] [id number] March, [facility] [address] [id number] [address] [place] [address], [place] [id number] March, [facility] [address] [id number] [address] [place] [address], [place] [id number] March, [facility] [address] [id number] [address] [place] [address], [place] [id number] March, [facility] [address] [id number] [address] [place] [address], [place] [id number] March, [facility] [address] [id number] [address] [place] [address], [place] [id number] 22 Jan, 2012 [facility] [address] [id number] [address] [place] [address], [place] [id number] 21 Jan, 2012 [facility] [address] [id number] [address] [place] [address], [place] [id number] 20 Jan, 2012 [facility] [address] [id number] [address] [place] [address], [place] [id number] 13 Jan, 2012 [facility] [address] [id number] [address] [place] [address], [place] [id number] Jan, [facility] [address] [id number] [address] [place] [address], [place] [id number] 08 Dec, 2011 [facility] [address] [id number] [address] [place] [address], [place] [id number] 06 Dec, 2011 [facility] [address] [id number] [address] [place] [address], [place] [id number] Nov, [facility] [address] [id number] [address] [place] [address], [place] [id number] Nov, [facility] [address] [id number] [address] [place] [address], [place] [id number] Nov, [facility] [address] [id number] [address] [place] [address], [place] [id number] Nov, [facility] [address] [id number] [address] [place] [address], [place] [id number] Oct, [facility] [address] [id number] [address] [place] [address], [place] [id number] Oct, [facility] [address] [id number] [address] [place] [address], [place] [id number] 14 Sep, 2011 [facility] [address] [id number] [address] [place] [address], [place] [id number] 10 Sep, 2011 [facility] [address] [id number] [address] [place] [address], [place] [id number] 10 Sep, 2011 [facility] [address] [id number] [address] [place] [address], [place] [id number] 11 May, 2011 [facility] [address] [id number] [address] [place] [address], [place] [id number] Nov, [facility] [address] [id number] [address] [place] [address], [place] [id number] 29 Oct, 2010 [facility] [address] [id number] [address] [place] [address], [place] [id number] 14 Oct, 2010 [facility] [address] [id number] [address] [place] [address], [place] [id number] 08 Oct, 2010 [facility] [address] [id number] [address] [place] [address], [place] [id number] Sep, [facility] [address] [id number] [address] [place] [address], [place] [id number] Sep, [facility] [address] [id number] [address] [place] [address], [place] [id number] Aug, [facility] [address] [id number] [address] [place] [address], [place] [id number] March, [facility] [address] [id number] [address] [place] [address], [place] [id number] Oct, [facility] [address] [id number] [address] [place] [address], [place] [id number] Oct, 2009 [facility] [address] [id number] [address] [place] [address], [place] [id number] Oct, [facility] [address] [id number] [address] [place] [address], [place] [id number] Oct, [facility] [address] [id number] [address] [place] [address], [place] [id number] Sep, [facility] [address] [id number] [address] [place] [address], [place] [id number] Sep, [facility] [address] [id number] [address] [place] [id number] Sep, [facility] [place] [address] [facility] [id number] [address] [place] [id number] Aug, [facility] [place] [address] [facility] [id number] [address] [place] [id number] Aug, [facility] [place] [address] [facility] [id number] [address] [place] [id number] Aug, [facility] [place] [address] [facility] [id number] [address] [place] [id number] Jan, IMMUNIZATIONS No Known Immunizations SOCIAL HISTORY Never Assessed REASON FOR VISIT Diabetes. Shahid RN, Pt c/o getting weaker PLAN OF CARE Activity Details Follow Up 3 Months, prn Reason:CHM/DM VITAL SIGNS Height 69 in 2018-03-28 Weight 173.3 lbs 2018-03-28 Temperature 97.4 degrees Fahrenheit 2018-03-28 Heart Rate 102 bpm 2018-03-28 Respiratory Rate 20 2018-03-28 BMI 25.59 kg/m2 2018-03-28 Blood pressure systolic 118 mmHg 2018-03-28 Blood pressure diastolic 72 mmHg 2018-03-28 MEDICATIONS Medication Instructions Dosage Frequency Start Date End Date Duration S tatus Gabapentin 300 MG Orally Once a day 1 capsule before bedtime 24h Jan, 90 days Active Victoza 18 MG/3ML Subcutaneous Once a day 1.8 mg 24h 12 months Active Levothyroxine Sodium 75 mcg Orally Once a day on an em pty stomach with a full glass of water 1 tablet Active Pravastatin Sodium 20 mg Orally Once a day 1 tablet 24h March, 90 days Active Omeprazole 20 mg Orally 2 times a day TAKE ONE CAPSULE BY MOUTH TWI CE DAILY 12h 90 days Active Oxybutynin Chloride 5 mg Orally Twice a day 1 tablet 12h 90 days Active Lisinopril 10 mg Orally Once a day 1 tablet 24h Jan, 90 days Active Hydrocodone-Acetaminophen 5-325 MG Orally 3 times a day 1 tablet as needed 8h Feb, 28 days Active Levemir FlexTouch 100 UNIT/ML Subcutaneous 2 times a day INJ ECT 30 UNITS SUBCUTANEOUSLY TWICE DAILY (MUST KEEP APPOINTMENT ON 11/08 FOR REFILLS) 12h 12 months Active NovoLog Flexpen 100 UNIT/ML Subcutaneous 3 times a day wit meals 10 units Jan, 12 months Active MetFORMIN HCl ER 500 mg Orally twice a day 2 tablets 12h 90 days Active Effexor XR 75 mg Orally Once a day take 1 capsule (75 m g) by oral route once daily with food 24h Jan, Active Proventil HFA 108 (90 Base) MCG/ACT [...] Ordered Result Body Site GLYCATED HEMOGLOBIN TEST March 28, 2018 ASSAY THYROID STIM HORMONE March 28, 2018 COMPREHEN METABOLIC PANEL March 28, 2018 INSTRUCTIONS MEDICATIONS ADMINISTERED No Known Medications [...]
--- OUTSIDE RECORDS SUMMARY | 2020-06-13 16:29 | XMS REPORT ---
Author Author Jah PARKER Organization [facility] Address [address] [place] [address] Care Team Providers Care Business Performance Advisor Name Role Phone PARKERPATRICIA Mckeon Unavailable PROBLEMS Type Condition ICD9-CM Code FYA79-CA Code Onset Dates Condition S tatus SNOMED Code Problem Gastroesophageal reflux disease with esophagitis K 21.0 Active 297587189 Problem FDC current use of insulin Z79.4 Active 639336685 Problem Irritable bowel syndrome with diarrhea K58.0 Active 009300351 Problem Chronic fatigue R53.82 Active 8422 9001 Problem Recurrent major depressive disorder, in partial remission F33.41 Active 32544638 Problem Essential (primary) hypertension I10 Active 89824332 Problem Type 2 diabetes mellitus with hyperglycemia E11.65 Active 71006257 Problem Current non-adherence to medical treatment Z91.19 Active 1510826 Problem Pulmonary emphysema, unspecified emphysema type J4 3.9 Active 84585104 Problem Neuropathy G62.9 Active 146855897 Problem Hypothyroid E03.9 Active 87900150 Problem Thrombocytosis D47.3 Active 82741 09 Problem Overactive bladder N32.81 Active 2 82437638 Problem Chronic pain G89.29 Active 9332050 1 Problem Mixed hyperlipidemia E78.2 Active [id number] ALLERGIES No Information ENCOUNTERS Encounter Location Date Diagnosis [facility] [address] [facility] [id number] [address] [place] [phone] Jun, [facility] [address] [facility] [id number] [address] [place] [phone] Jun, [facility] [address] [facility] [id number] [address] [place] [phone] May, [facility] [address] [facility] [id number] [address] [place] [phone] May, Generalized abdominal pain R 10.84 and Candidal dermatitis B37.2 [facility] [address] [id number] [address] [place] [phone] May, [facility] [address] [id number] [address] [place] [phone] May, [facility] [address] [facility] [id number] [address] [place] [phone] May, Nodular radiologic density R 93.8 ; Weight loss, unintentional R63.4 and Pulmonary emphysema, unspecified emphysema type J43.9 [facility] [address] [facility] [id number] [address] [place] [phone] May, Chronic pain G89.29 [place] [address] [address] [facility] [id number] [address] [place] [phone] May, Syncope and collapse R55 ; C hronic fatigue R53.[address] lung screening R91.8 [place] [address] [facility] [id number] [address] [place] [phone] May, [facility] [address] [facility] [id number] [address] [place] [phone] Apr, Chronic fatigue R53.82 ; Abn ormal chest CT R93.8 ; Elevated erythrocyte sedimentation rate R70.0 ; Hypothyroid E03.9 and Recurrent major depressive disorder, in partial remission F33.41 [place] [address] [address] [facility] [id number] [address] [place] [phone] Apr, Hypothyroid E03.9 [facility] [address] [id number] [address] [place] [phone] Apr, Depression F32.9 [place] [address] [address] [facility] [id number] [address] [place] [phone] Apr, [facility] [address] [facility] [id number] [address] [place] [phone] March, [place] [address] [facility] [id number] [address] [place] [phone] March, Hypothyroid E03.9 [facility] [address] [facility] [id number] [address] [place] [phone] March, Diabetes mellitus E11.9 and Hypothyroid E03.9 [facility] [address] [facility] [id number] [address] [place] [phone] March, Diabetes mellitus E11.9 [place] [address] [facility] [id number] [address] [place] [phone] March, Hypothyroid E03.9 and Elevat ed liver enzymes R74.8 [place] [address] [facility] [id number] [address] [place] [phone] March, Type 2 diabetes mellitus wit h [...] disorder, in partial remission F33.41 [place] [address] [facility] [id number] [address] [place] [phone] Feb, Chronic pain G89.29 [place] [address] [facility] [id number] [address] [place] [phone] Feb, Type 2 diabetes mellitus wit h hyperglycemia E11.65 and Skin lesion of scalp L98.9 [place] [address] [facility] [id number] [address] [place] [phone] Feb, [place] [address] [facility] [id number] [address] [place] [phone] Jan, Type 2 diabetes mellitus wit h [...] bowel syndrome with diarrhea K58.0 [place] [address] [id number] [address] [place] [phone] Jan, [place] [address] [id number] [address] [place] [phone] Jan, Controlled substance agreeme nt signed Z79.899 [place] [address] [id number] [address] [place] [phone] Dec, Type 2 diabetes mellitus wit h hyperglycemia E11.65 ; Controlled substance agreement signed Z79.899 ; FDC current use of insulin Z79.4 ; Essential (primary) hypertension I10 ; Hypothyroid E03.9 ; Neuropathy G62.9 ; Depression F32.9 ; Mixed hyperlipidemia E78.2 ; Irritable bowel syndrome with diarrhea K58.0 ; Gastroesophageal reflux disease with esophagitis K21.0 ; Thrombocytosis D47.3 ; Current non-adherence to medical treatment Z91.19 and Overweight (BMI 25.0-29.9) E66.3 [place] [address] [id number] [address] [place] [phone] 02 Dec, 2017 Controlled substance agreeme nt signed Z79.899 [place] [address] [facility] [id number] [address] [place] [phone] Nov, Type 2 diabetes mellitus wit h hyperglycemia E11.65 and Current non- adherence to medical treatment Z91.19 [place] [address] [id number] [address] [place] [phone] Nov, [place] [address] [id number] [address] [place] [phone] Nov, Chronic pain G89.29 [place] [address] [id number] [address] [place] [id number] Nov, [place] [address] [facility] [id number] [address] [place] [phone] Nov, Hypothyroid E03.9 [facility] [address] [id number] [address] [place] [phone] Nov, Hypothyroid E03.9 [facility] [address] [facility] [id number] [address] [place] [phone] Nov, Pulmonary emphysema, unspeci fied emphysema type J43.9 and Irritable bowel syndrome with diarrhea K58.0 [facility] [address] [facility] [id number] [address] [place] [phone] Oct, [facility] [address] [facility] [id number] [address] [place] [id number] Oct, [place] [address] [facility] [id number] [address] [place] [phone] Oct, [facility] [address] [facility] [id number] [address] [place] [phone] Oct, [facility] [address] [facility] [id number] [address] [place] [phone] Oct, Chronic pain G89.29 [place] [address] [facility] [id number] [address] [place] [phone] Oct, Diabetes mellitus E11.9 ; De pression F32.9 ; Mixed hyperlipidemia E78.2 ; Hypotension, unspecified hypotension type I95.9 ; Pulmonary emphysema, unspecified emphysema type J43.9 and Weight loss, unintentional R63.4 [facility] [address] [facility] [id number] [address] [place] [phone] Oct, Chronic pain G89.29 [facility] [address] [facility] [id number] [address] [place] [id number] Sep, Chronic pain G89.29 [place] [address] [facility] [id number] [address] [place] [id number] Sep, Hypothyroid E03.9 and Diabet es mellitus E11.9 [facility] [address] [facility] [id number] [address] [place] [phone] Aug, Type 2 diabetes mellitus wit h hyperglycemia E11.65 ; 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 ; Essential (primary) hypertension I10 ; Hypothyroid E03.9 ; Neuropathy G62.9 ; Chronic pain G89.29 ; Mixed hy perlipidemia E78.2 and Encounter for immunization Z23 [facility] [address] [facility] [id number] [address] [place] [id number] Aug, Chronic pain G89.29 [facility] [address] [facility] [id number] [address] [place] [phone] Aug, Overactive bladder N32.81 ; Diabetes mellitus E11.9 and Chronic pain G89.29 [facility] [address] [place] [id number] [address] [place] [phone] Jul, [facility] [address] [place] [id number] [address] [place] [phone] Jun, [facility] [address] [place] [id number] [address] [place] [phone] Jun, [facility] [address] [place] [id number] [address] [place] [phone] Jun, Hypothyroid E03.9 [place] [address] [place] [id number] [address] [place] [phone] Jun, Diabetes mellitus E11.9 ; Hy pothyroid E03.9 ; Neuropathy G62.9 ; Chronic pain G89.29 and Neck mass R22.1 [facility] [address] [facility] [id number] [address] [place] [phone] Apr, [facility] [address] [place] [id number] [address] [place] [phone] Apr, Acute cystitis without hemat uria N30.00 [facility] [address] [facility] [id number] [address] [place] [phone] March, [facility] [address] [place] [id number] [address] [place] [phone] March, [facility] [id number] [place] [phone] 15 Mar, 2017 Near syncope R55 [facility] [address] [place] [id number] [address] [place] [phone] Feb, [facility] [address] [facility] [id number] [address] [place] [phone] Feb, Chronic pain G89.29 [facility] [address] [place] [id number] [address] [place] [id number] Feb, [facility] [address] [place] [id number] [address] [place] [phone] Feb, [facility] [address] [place] [id number] [address] [place] [phone] Jan, Chronic pain G89.29 [facility] [address] [place] [id number] [address] [place] [phone] Jan, [facility] [address] [place] [id number] [address] [place] [phone] Jan, [facility] [address] [place] [id number] [address] [place] [phone] Jan, Diabetes mellitus E11.9 ; Hy pothyroid E03.9 ; GERD (gastroesophageal reflux disease) K21.9 ; Insomnia G47.00 ; Functional diarrhea K59.1 ; Neuropathy G62.9 ; Depression F32.9 ; Chronic pain G89.29 ; Irritable bowel syndrome with diarrhea K58.0 ; Overactive bladder N32.81 ; Mixed hyperlipidemia E78.2 and Bronchitis J40 [facility] [address] [place] [phone] Dec, [facility] [address] [place] [id number] [address] [place] [phone] Dec, [facility] [address] [place] [id number] [address] [place] [phone] Dec, [facility] [address] [place] [id number] [address] [place] [phone] Dec, [facility] [address] [facility] [id number] [address] [place] [id number] Dec, Chronic pain G89.29 [facility] [address] [facility] [id number] [address] [place] [phone] Dec, [facility] [address] [place] [id number] [address] [place] [phone] Dec, [facility] [address] [place] [id number] [address] [place] [phone] Dec, Type 2 diabetes mellitus wit h foot ulcer E11.621 [place] [address] [place] [id number] [address] [place] [phone] 17 Dec, 2016 Type 2 diabetes mellitus wit h foot ulcer E11.621 [place] [address] [place] [id number] [address] [place] [phone] 14 Dec, 2016 HTN (hypertension) I10 ; Dep ression F32.9 ; Type 2 diabetes mellitus with foot ulcer E11.621 ; Functional diarrhea K59.1 ; Irritable bowel syndrome with diarrhea K58.0 ; Chronic pain G89.29 ; Insomnia G47.00 ; Overactive bladder N32.81 ; Mixed hyperlipidemia E78.2 ; Gastroesophageal reflux disease with esophagitis K21.0 and Acquired hypothyroidism E03.9 [place] [address] [place] [phone] Nov, [facility] [address] [place] [phone] Oct, [facility] [address] [place] [id number] [address] [place] [phone] Oct, [place] [address] [place] [id number] [address] [place] [phone] Oct, [facility] [address] [place] [id number] [address] [place] [phone] Sep, Functional diarrhea K59.1 ; HTN (hypertension) I10 ; Diabetes mellitus E11.9 ; Depression F32.9 ; Overactive bladder N32.81 ; Mixed hyperlipidemia E78.2 ; Gastroesophageal reflux disease without esophagitis K21.9 ; Chronic pain G89.29 ; Insomnia G47.00 and Acquired hypothyroidism E03.9 [place] [address] [address] Sep, [place] [address] [address] Aug, Encounter for immunization Z 23 [place] [address] [id number] Aug, [place] [address] [phone] Jul, [place] [address] [phone] Jun, Type 2 diabetes mellitus wit hout complications E11.9 ; HTN (hypertension) I10 ; Hypothyroid E03.9 ; Neuropathy G62.9 ; Depression F32.9 ; Chronic pain G89.29 ; GERD (gastroesophageal reflux disease) K21.9 ; Insomnia G47.00 ; Overactive bladder N32.81 ; Mixed hyperlipidemia E78.2 ; Diarrhea of infectious origin A09 and Environmental allergies Z91.09 [place] [address] [address] Apr, [place] [address] [place] [id number] [place] [phone] March, Hypothyroidism, unspecified E03.9 and Mixed hyperlipidemia E78.2 [place] [address] [address] March, Diabetes mellitus E11.9 ; HT N (hypertension) I10 ; Hypothyroid E03.9 ; Depression F32.9 ; Overactive bladder N32.81 ; Other chronic pain G89.29 ; Lumbago with sciatica, unspecified side M54.40 ; Environmental allergies Z91.09 and Gastroesophageal reflux disease, esophagitis presence not specified K21.9 [place] [address] [address] March, [place] [address] [address] Jan, HTN (hypertension) I10 ; Hyp othyroid E03.9 ; Neuropathy G62.9 ; Diabetes mellitus E11.9 ; Chronic pain G89.29 ; GERD (gastroesophageal reflux disease) K21.9 ; Overactive bladder N32.81 and Depression F32.9 [place] [address] [id number] 12 Dec, 2015 Ear pain, left H92.02 ; HTN (hypertension) I10 ; Hypothyroid E03.9 ; Neuropathy G62.9 ; Diabetes mellitus E11.9 ; Depression F32.9 ; GERD (gastroesophageal reflux disease) K21.9 ; Insomnia G47.00 and Overactive bladder N32.81 [place] [address] [address] Nov, Overactive bladder N32.81 an d Chronic pain G89.29 [place] [address] [address] Nov, Kidney failure N19 [place] [address] [address] Nov, [place] [address] [address] Nov, [place] [address] [address] Nov, Diabetes mellitus E11.9 ; De pression F32.9 ; Chronic pain G89.29 ; GERD (gastroesophageal reflux disease) K21.9 ; Insomnia G47.00 ; HTN (hypertension) I10 ; Hypothyroid E03.9 ; COPD (chronic obstructive pulmonary disease) J44.9 ; Bladder incontinence R32 and Incontinence R32 [place] [address] [address] Sep, Type 2 diabetes mellitus wit h foot ulcer E11.621 and Chromosomal abnormality, 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1 ; Unspecified hypothyroidism 244.9 ; Insomnia, unspecified 780.52 ; Shortness of breath 786.05 ; Depression 311 ; COPD (chronic obstructive pulmonary disease) 496 ; GERD (gastroesophageal reflux disease) 530.81 and Diabetes 1.5, 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 [address] May, [address] [address] May, [address] [address] May, Shortness of breath 786.05 ; Essential hypertension, benign 401.1 ; Diabetes mellitus 250.00 ; Hyperlipidemia 272.4 ; Hypothyroid 244.9 ; Insomnia 780.52 and Cough 786.2 [facility] [address] [id number] [address] [place] [phone] Apr, [facility] [address] [facility] [id number] [address] [place] [address] March, Shortness of breath 786.05 ; Nausea with vomiting 787.01 ; Essential hypertension, benign 401.1 ; Diabetes mellitus 250.00 ; Hyperlipidemia 272.4 and Hypothyroid 244.9 [facility] [address] [id number] [address] [place] [phone] Feb, [facility] [address] [id number] [address] [place] [phone] Feb, [facility] [address] [facility] [id number] [address] [place] [phone] Jan, [facility] [address] [id number] [address] [place] [id number] Jan, [facility] [address] [facility] [id number] [address] [place] [phone] Jan, [facility] [address] [facility] [id number] [address] [place] [phone] Jan, [facility] [address] [facility] [id number] [address] [place] [phone] Jan, [facility] [address] [id number] [address] [place] [phone] Jan, [facility] [address] [id number] [address] [place] [phone] Jan, [facility] [address] [facility] [id number] [address] [place] [phone] Jan, [facility] [address] [facility] [id number] [address] [place] [phone] Jan, [facility] [address] [id number] [address] [place] [address], [place] [address] Jan, [facility] [address] [id number] [address] [place] [address], [place] [address] Dec, 2014 [facility] [address] [id number] [address] [place] [address], [place] [address] Dec, 2014 [facility] [address] [id number] [address] [place] [address], [place] [address] Dec, 2014 [facility] [address] [id number] [address] [place] [address], [place] [address] Dec, 2014 [facility] [address] [id number] [address] [place] [address], [place] [address] Dec, 2014 [facility] [address] [id number] [address] [place] [address], [place] [address] Dec, 2014 [facility] [address] [id number] [address] [place] [address], [place] [address] Dec, 2014 [facility] [address] [id number] [address] [place] [address], [place] [address] Dec, 2014 [facility] [address] [id number] [address] [place] [address], [place] [address] Dec, 2014 [facility] [address] [id number] [address] [place] [address], [place] [id number] Dec, 2014 [facility] [address] [id number] [address] [place] [address], [place] [address] Oct, [facility] [address] [id number] [address] [place] [address], [place] [address] Oct, [facility] [address] [id number] [address] [place] [address], [place] [address] Oct, [facility] [address] [id number] [address] [place] [address], [place] [address] Oct, [facility] [address] [id number] [address] [place] [address], [place] [id number] 08 Oct, 2014 [facility] [address] [id number] [address] [place] [address], [place] [address] 08 Oct, 2014 [facility] [address] [id number] [address] [place] [address], [place] [address] Oct, [facility] [address] [id number] [address] [place] [address], [place] [id number] 05 Oct, 2014 [facility] [address] [id number] [address] [place] [address], [place] [address] Oct, [facility] [address] [id number] [address] [place] [address], [place] [address] Oct, [facility] [address] [id number] [address] [place] [address], [place] [address] Oct, [facility] [address] [id number] [address] [place] [address], [place] [address] Oct, [facility] [address] [id number] [address] [place] [address], [place] [id number] Oct, [facility] [address] [id number] [address] [place] [address], [place] [id number] Oct, [facility] [facility] [address] [id number] [address] [place] [address], [place] [address] Sep, [facility] [address] [id number] [address] [place] [address], [place] [address] Sep, [facility] [address] [id number] [address] [place] [address], [place] [address] Sep, [facility] [address] [id number] [address] [place] [address], [place] [address] Sep, [facility] [address] [id number] [address] [place] [address], [place] [address] Sep, [facility] [address] [id number] [address] [place] [address], [place] [address] Sep, [facility] [address] [id number] [address] [place] [address], [place] [address] Sep, [facility] [address] [id number] [address] [place] [address], [place] [address] Sep, [facility] [address] [id number] [address] [place] [address], [place] [address] Sep, [facility] [address] [id number] [address] [place] [address], [place] [address] Aug, [facility] [address] [id number] [address] [place] [address], [place] [address] Aug, [facility] [address] [id number] [address] [place] [address], [place] [address] Aug, [facility] [address] [id number] [address] [place] [address], [place] [address] Aug, [facility] [address] [id number] [address] [place] [address], [place] [address] Aug, [facility] [address] [id number] [address] [place] [address], [place] [address] Aug, [facility] [address] [id number] [address] [place] [address], [place] [address] Aug, [facility] [address] [id number] [address] [place] [address], [place] [address] Aug, [facility] [address] [id number] [address] [place] [address], [place] [address] Aug, [facility] [address] [id number] [address] [place] [address], [place] [address] Jul, [facility] [address] [id number] [address] [place] [address], [place] [address] 29 Jul, 2014 [facility] [address] [id number] [address] [place] [address], [place] [address] 25 Jul, 2014 [facility] [address] [id number] [address] [place] [address], [place] [address] Jul, [facility] [address] [id number] [facility] [place] [address] Jul, [facility] [address] [id number] [address] [place] [address], [place] [address] Jul, [facility] [address] [id number] [address] [place] [address], [place] [address] Jul, [facility] [address] [id number] [address] [place] [address], [place] [address] Jul, [facility] [address] [id number] [address] [place] [address], [place] [address] Jul, [facility] [address] [id number] [address] [place] [address], [place] [address] Jul, [facility] [address] [id number] [address] [place] [address], [place] [address] Jun, [facility] [address] [id number] [address] [place] [address], [place] [address] Jun, [facility] [address] [id number] [address] [place] [address], [place] [address] Jun, [facility] [address] [id number] [address] [place] [address], [place] [address] Jun, [facility] [address] [id number] [address] [place] [address], [place] [address] Jun, [facility] [address] [id number] [address] [place] [address], [place] [address] Jun, [facility] [address] [id number] [address] [place] [address], [place] [address] Jun, [facility] [address] [id number] [address] [place] [address], [place] [address] Jun, [facility] [address] [id number] [address] [place] [address], [place] [address] Jun, [facility] [address] [id number] [facility] [place] [place] [address] Jun, [facility] [address] [id number] [address] [place] [address], [place] [address] Jun, [facility] [address] [id number] [address] [place] [address], [place] [address] Jun, [facility] [address] [id number] [address] [place] [address], [place] [address] May, [facility] [address] [id number] [address] [place] [address], [place] [address] May, [facility] [address] [id number] [address] [place] [address], [place] [address] May, [facility] [address] [id number] [address] [place] [address], [place] [address] May, [facility] [address] [id number] [address] [place] [address], [place] [address] May, [facility] [address] [id number] [address] [place] [address], [place] [address] May, [facility] [address] [id number] [address] [place] [address], [place] [address] March, [facility] [address] [id number] [address] [place] [address], [place] [address] March, [facility] [address] [id number] [address] [place] [address], [place] [address] March, [facility] [address] [id number] [address] [place] [address], [place] [address] March, [facility] [address] [id number] [address] [place] [address], [place] [address] March, [facility] [address] [id number] [address] [place] [address], [place] [address] March, [facility] [address] [id number] [address] [place] [address], [place] [address] Feb, [facility] [address] [id number] [facility] [place] [place] [address] Feb, [facility] [address] [id number] [address] [place] [address], [place] [address] Feb, [facility] [address] [id number] [address] [place] [address], [place] [address] Feb, [facility] [address] [id number] [address] [place] [address], [place] [address] Jan, [facility] [address] [id number] [address] [place] [address], [place] [address] Jan, [facility] [address] [id number] [address] [place] [address], [place] [address] Jan, [facility] [address] [id number] [address] [place] [address], [place] [address] Jan, [facility] [address] [id number] [address] [place] [address], [place] [address] Jan, [facility] [address] [id number] [address] [place] [address], [place] [address] Jan, [facility] [address] [id number] [address] [place] [address], [place] [address] Jan, [facility] [address] [id number] [address] [place] [address], [place] [address] Jan, [facility] [address] [id number] [address] [place] [address], [place] [address] Jan, [facility] [address] [id number] [address] [place] [address], [place] [address] Jan, [facility] [address] [id number] [address] [place] [address], [place] [address] Jan, [facility] [address] [id number] [address] [place] [address], [place] [address] Jan, [facility] [address] [id number] [address] [place] [address], [place] [address] Dec, [facility] [address] [id number] [address] [place] [address], [place] [address] Dec, [facility] [address] [id number] [address] [place] [address], [place] [address] Dec, [facility] [address] [id number] [address] [place] [address], [place] [address] Dec, [facility] [address] [id number] [address] [place] [address], [place] [address] Dec, [facility] [address] [id number] [address] [place] [address], [place] [address] Dec, [facility] [address] [id number] [address] [place] [address], [place] [address] Nov, [facility] [address] [id number] [address] [place] [address], [place] [address] Nov, [facility] [address] [id number] [address] [place] [address], [place] [address] Oct, [facility] [address] [id number] [address] [place] [address], [place] [address] Oct, [facility] [address] [id number] [address] [place] [address], [place] [address] Oct, [facility] [address] [id number] [address] [place] [address], [place] [address] Oct, [facility] [address] [id number] [address] [place] [address], [place] [address] Oct, [facility] [address] [id number] [address] [place] [address], [place] [address] Oct, [facility] [address] [id number] [address] [place] [address], [place] [address] Sep, [facility] [address] [id number] [address] [place] [address], [place] [address] Sep, [facility] [address] [id number] [address] [place] [address], [place] [address] Sep, [facility] [address] [id number] [address] [place] [address], [place] [address] Sep, [facility] [address] [id number] [address] [place] [address], [place] [address] Aug, [facility] [address] [id number] [address] [place] [address], [place] [address] Aug, [facility] [address] [id number] [address] [place] [address], [place] [address] Aug, [facility] [address] [id number] [address] [place] [address], [place] [address] 17 Jul, 2013 [facility] [address] [id number] [address] [place] [address], [place] [address] 14 Jul, 2013 [facility] [address] [id number] [address] [place] [address], [place] [address] Jul, [facility] [address] [id number] [address] [place] [address], [place] [address] Jun, [facility] [address] [id number] [address] [place] [address], [place] [address] Jun, [facility] [address] [id number] [address] [place] [address], [place] [address] Jun, [facility] [address] [id number] [address] [place] [address] Apr, [facility] [address] [id number] [address] [place] [address], [place] [address] Apr, [facility] [address] [id number] [address] [place] [address], [place] [address] March, [facility] [address] [id number] [address] [place] [address], [place] [address] March, [facility] [address] [id number] [address] [place] [address], [place] [address] March, [facility] [address] [id number] [address] [place] [address], [place] [address] March, [facility] [address] [id number] [address] [place] [address], [place] [address] Feb, [facility] [address] [id number] [address] [place] [address], [place] [address] Jan, [facility] [address] [id number] [address] [place] [address], [place] [address] Dec, [facility] [address] [id number] [address] [place] [address], [place] [address] Dec, [facility] [address] [id number] [address] [place] [address], [place] [address] Dec, [facility] [address] [id number] [address] [place] [address], [place] [address] Nov, [facility] [address] [id number] [address] [place] [address], [place] [address] Oct, [facility] [address] [id number] [address] [place] [address], [place] [address] Oct, [facility] [address] [id number] [address] [place] [address], [place] [address] Sep, [facility] [address] [id number] [address] [place] [address], [place] [address] Sep, [facility] [address] [id number] [address] [place] [address], [place] [address] Sep, [facility] [address] [id number] [address] [place] [address], [place] [address] Sep, [facility] [address] [id number] [address] [place] [address], [place] [address] Sep, [facility] [address] [id number] [address] [place] [address], [place] [address] Sep, [facility] [address] [id number] [address] [place] [address], [place] [address] Sep, [facility] [address] [id number] [address] [place] [address], [place] [address] Aug, [facility] [address] [id number] [address] [place] [address], [place] [address] 16 Aug, 2012 [facility] [address] [id number] [address] [place] [address], [place] [address] Aug, [facility] [address] [id number] [address] [place] [address], [place] [address] Aug, [facility] [address] [id number] [address] [place] [address], [place] [address] Aug, [facility] [address] [id number] [address] [place] [address], [place] [address] Aug, [facility] [address] [id number] [address] [place] [address], [place] [address] Aug, [facility] [address] [id number] [address] [place] [address], [place] [address] Aug, [facility] [address] [id number] [address] [place] [address], [place] [address] Jul, [facility] [address] [id number] [address] [place] [address], [place] [address] Jul, [facility] [address] [id number] [address] [place] [address], [place] [address] Jun, [facility] [address] [id number] [address] [place] [address], [place] [address] May, [facility] [address] [id number] [address] [place] [address], [place] [address] Apr, [facility] [address] [id number] [address] [place] [address], [place] [address] Apr, [facility] [address] [id number] [address] [place] [address], [place] [address] Apr, [facility] [address] [id number] [address] [place] [address], [place] [address] March, [facility] [address] [id number] [address] [place] [address], [place] [address] March, [facility] [address] [id number] [address] [place] [address], [place] [address] March, [facility] [address] [id number] [address] [place] [address], [place] [address] March, [facility] [address] [id number] [address] [place] [address], [place] [address] March, [facility] [address] [id number] [address] [place] [address], [place] [address] March, [facility] [address] [id number] [address] [place] [address], [place] [address] March, [facility] [address] [id number] [address] [place] [address], [place] [address] Jan, [facility] [address] [id number] [address] [place] [address], [place] [address] Jan, [facility] [address] [id number] [address] [place] [address], [place] [address] Jan, [facility] [address] [id number] [address] [place] [address], [place] [address] Jan, [facility] [address] [id number] [address] [place] [address], [place] [address] Jan, [facility] [address] [id number] [address] [place] [address], [place] [address] Dec, [facility] [address] [id number] [address] [place] [address], [place] [address] Dec, [facility] [address] [id number] [address] [place] [address], [place] [address] Nov, [facility] [address] [id number] [address] [place] [address], [place] [address] 10 Nov, 2011 [facility] [address] [id number] [address] [place] [address], [place] [address] Nov, [facility] [address] [id number] [address] [place] [address], [place] [address] Nov, [facility] [address] [id number] [address] [place] [address], [place] [address] Oct, [facility] [address] [id number] [address] [place] [address], [place] [address] Oct, [facility] [address] [id number] [address] [place] [address], [place] [address] 14 Sep, 2011 [facility] [address] [id number] [address] [place] [address], [place] [id number] Sep, [facility] [address] [id number] [address] [place] [address], [place] [id number] Sep, [facility] [address] [id number] [address] [place] [address], [place] [id number] May, [facility] [address] [id number] [address] [place] [address], [place] [id number] Nov, [facility] [address] [id number] [address] [place] [address], [place] [id number] 29 Oct, 2010 [facility] [address] [id number] [address] [place] [address], [place] [id number] 14 Oct, 2010 [facility] [address] [id number] [address] [place] [address], [place] [id number] 08 Oct, 2010 [facility] [address] [id number] [address] [place] [address], [place] [id number] 15 Sep, 2010 [facility] [address] [id number] [address] [place] [address], [place] [id number] 02 Sep, 2010 [facility] [address] [id number] [address] [place] [address], [place] [id number] Aug, [facility] [address] [id number] [address] [place] [phone] March, [facility] [address] [id number] [address] [place] [phone] Oct, [facility] [address] [id number] [address] [place] [id number] Oct, [facility] [address] [id number] [address] [place] [phone] Oct, [facility] [address] [id number] [address] [place] [phone] Oct, [facility] [address] [id number] [address] [place] [phone] Sep, [facility] [address] [id number] [address] [place] [phone] Sep, [facility] [address] [id number] [address] [place] [phone] Sep, [facility] [address] [id number] [address] [place] [phone] Aug, [facility] [address] [id number] [address] [place] [phone] Aug, [facility] [address] [id number] [address] [place] [phone] Aug, [facility] [address] [id number] [address] [place] [phone] Jan, IMMUNIZATIONS No Known Immunizations SOCIAL HISTORY Never Assessed REASON FOR VISIT Controlled Med Refill PLAN OF CARE VITAL SIGNS MEDICATIONS Medication Instructions Dosage Frequency Start Date End Date Duration S gato Hydrocodone-Acetaminophen 5-325 MG Orally 3 times a day 1 tablet as needed Feb, 28 days Active RESULTS No Results PROCEDURES [...]
--- OUTSIDE RECORDS SUMMARY | 2020-06-13 16:29 | XMS REPORT ---
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 Name Role Phone PARKERPATRICIA Mckeon Unavailable PROBLEMS Type Condition ICD9-CM Code ZTH90-UX Code Onset Dates Condition S tatus SNOMED Code Problem Gastroesophageal reflux disease with esophagitis K 21.0 Active 021264697 Problem alf current use of insulin Z79.4 Active 502581307 Problem Irritable bowel syndrome with diarrhea K58.0 Active 633530171 Problem Chronic fatigue R53.82 Active 8422 9001 Problem Recurrent major depressive disorder, in partial remission F33.41 Active 81770535 Problem Essential (primary) hypertension I10 Active 85968076 Problem Type 2 diabetes mellitus with hyperglycemia E11.65 Active 24432862 Problem Current non-adherence to medical treatment Z91.19 Active 1430385 Problem Pulmonary emphysema, unspecified emphysema type J4 3.9 Active 87920330 Problem Neuropathy G62.9 Active 282469307 Problem Hypothyroid E03.9 Active 61109910 Problem Thrombocytosis D47.3 Active 97432 09 Problem Overactive bladder N32.81 Active 2 89413417 Problem Chronic pain G89.29 Active 9686593 1 Problem Mixed hyperlipidemia E78.2 Active [id number] ALLERGIES No Information ENCOUNTERS Encounter Location Date Diagnosis [facility] [address] [facility] [id number] [address] [place] [id number] Jun, [facility] [address] [facility] [id number] [address] [place] [phone] Jun, [facility] [address] [facility] [id number] [address] [place] [phone] Jun, [facility] [address] [facility] [id number] [address] [place] [id number] Jun, Type 2 diabetes mellitus wit h hyperglycemia E11.65 ; alf current use of insulin Z79.4 ; Recurrent major depressive disorder, in partial remission F33.41 ; Hypothyroid E03.9 ; Candidal dermatitis B37.2 and Weakness generalized R53.1 [place] [address] [id number] [address] [place] [id number] May, [place] [id number] [id number] [address] [place] [phone] May, [place] [address] [id number] [address] [place] [phone] May, [place] [address] [id number] [address] [place] [phone] May, Generalized abdominal pain R 10.84 and Candidal dermatitis B37.2 [place] [address] [facility] [id number] [address] [place] [id number] May, [place] [address] [facility] [id number] [address] [place] [phone] May, [place] [address] [facility] [id number] [address] [place] [phone] May, Nodular radiologic density R 93.8 ; Weight loss, unintentional R63.4 and Pulmonary emphysema, unspecified emphysema type J43.9 [place] [address] [facility] [id number] [address] [place] [phone] May, Chronic pain G89.29 [place] [address] [facility] [id number] [address] [place] [phone] May, Syncope and collapse R55 ; C hronic fatigue R53.[address] lung screening R91.8 [place] [address] [facility] [id number] [address] [place] [phone] May, [place] [address] [facility] [id number] [address] [place] [id number] Apr, Chronic fatigue R53.82 ; Abn ormal chest CT R93.8 ; Elevated erythrocyte sedimentation rate R70.0 ; Hypothyroid E03.9 and Recurrent major depressive disorder, in partial remission F33.41 [facility] [address] [facility] [id number] [address] [place] [phone] Apr, Hypothyroid E03.9 [facility] [address] [facility] [id number] [address] [place] [id number] Apr, Depression F32.9 [facility] [address] [facility] [id number] [address] [place] [phone] Apr, [facility] [address] [facility] [id number] [address] [place] [phone] March, [facility] [address] [facility] [id number] [address] [place] [phone] March, Hypothyroid E03.9 [facility] [address] [facility] [id number] [address] [place] [phone] March, Diabetes mellitus E11.9 and Hypothyroid E03.9 [facility] [address] [facility] [id number] [address] [place] [id number] March, Diabetes mellitus E11.9 [facility] [address] [facility] [id number] [address] [place] [id number] March, Hypothyroid E03.9 and Elevat ed liver enzymes R74.8 [place] [address] [facility] [id number] [address] [place] [phone] March, Type 2 diabetes mellitus wit h [...] major depressive disorder, in partial remission F33.41 [facility] [address] [facility] [id number] [address] [place] [phone] Feb, Chronic pain G89.29 [facility] [address] [place] [id number] [address] [place] [id number] Feb, Type 2 diabetes mellitus wit h hyperglycemia E11.65 and Skin lesion of scalp L98.9 [place] [address] [place] [id number] [address] [place] [phone] Feb, [place] [address] [place] [id number] [address] [place] [phone] Jan, Type 2 diabetes mellitus wit h [...] and Irritable bowel syndrome with diarrhea K58.0 [place] [address] [place] [id number] [address] [place] [phone] Jan, [place] [address] [place] [id number] [address] [place] [id number] Jan, Controlled substance agreeme nt signed Z79.899 [place] [address] [place] [id number] [address] [place] [phone] Dec, Type 2 diabetes mellitus wit h [...] treatment Z91.19 and Overweight (BMI 25.0-29.9) E66.3 [place] [address] [place] [id number] [address] [place] [id number] Dec, Controlled substance agreeme nt signed Z79.899 [place] [id number] [place] [phone] Nov, Type 2 diabetes mellitus wit h hyperglycemia E11.65 and Current non- adherence to medical treatment Z91.19 [facility] [address] [facility] [id number] [address] [place] [phone] Nov, [facility] [address] [facility] [id number] [address] [place] [id number] Nov, Chronic pain G89.29 [place] [address] [facility] [id number] [address] [place] [phone] Nov, [place] [address] [facility] [id number] [address] [place] [id number] Nov, Hypothyroid E03.9 [place] [address] [facility] [id number] [address] [place] [id number] Nov, Hypothyroid E03.9 [place] [address] [place] [id number] [address] [place] [phone] Nov, Pulmonary emphysema, unspeci fied emphysema type J43.9 and Irritable bowel syndrome with diarrhea K58.0 [place] [address] [place] [id number] [address] [place] [phone] Oct, [place] [address] [facility] [id number] [address] [place] [phone] Oct, [place] [id number] [place] [phone] Oct, [place] [address] [facility] [id number] [address] [place] [id number] Oct, [place] [id number] [place] [id number] Oct, Chronic pain G89.29 [place] [address] [facility] [id number] [address] [place] [id number] Oct, Diabetes mellitus E11.9 ; De pression F32.9 ; Mixed hyperlipidemia E78.2 ; Hypotension, unspecified hypotension type I95.9 ; Pulmonary emphysema, unspecified emphysema type J43.9 and Weight loss, unintentional R63.4 [place] [id number] [place] [id number] [address] [place] [id number] Oct, Chronic pain G89.29 [place] [address] [place] [id number] [address] [place] [phone] Sep, Chronic pain G89.29 [place] [address] [address] Sep, Hypothyroid E03.9 and Diabet es mellitus E11.9 [place] [address] [address] Aug, Type 2 diabetes mellitus wit h hyperglycemia E11.65 ; alf current use of insulin Z79.4 ; Essential (primary) hypertension I10 ; Hypothyroid E03.9 ; Neuropathy G62.9 ; Chronic pain G89.29 ; Mixed hy perlipidemia E78.2 and Encounter for immunization Z23 [place] [address] [address] Aug, Chronic pain G89.29 [place] [address] [place] [id number] [place] [address] Aug, Overactive bladder N32.81 ; Diabetes mellitus E11.9 and Chronic pain G89.29 [place] [address] [place] [id number] [address] [place] [phone] Jul, [place] [address] [place] [id number] [address] [place] [phone] Jun, [place] [address] [id number] Jun, [place] [address] [place] [id number] [place] [address] Jun, Hypothyroid E03.9 [place] [address] [place] [id number] [place] [id number] Jun, Diabetes mellitus E11.9 ; Hy pothyroid E03.9 ; Neuropathy G62.9 ; Chronic pain G89.29 and Neck mass R22.1 [facility] [address] [facility] [id number] [address] [place] [id number] Apr, [facility] [address] [facility] [id number] [address] [place] [phone] Apr, Acute cystitis without hemat uria N30.00 [facility] [address] [id number] [address] [place] [id number] March, [facility] [address] [facility] [id number] [address] [place] [id number] March, [facility] [address] [facility] [id number] [address] [place] [phone] March, Near syncope R55 [facility] [address] [facility] [id number] [address] [place] [phone] Feb, [facility] [address] [facility] [id number] [address] [place] [id number] Feb, Chronic pain G89.29 [facility] [address] [facility] [id number] [address] [place] [phone] Feb, [facility] [address] [facility] [id number] [address] [place] [id number] Feb, [facility] [address] [facility] [id number] [address] [place] [id number] 24 Jan, 2017 Chronic pain G89.29 [facility] [address] [facility] [id number] [address] [place] [id number] Jan, [facility] [address] [facility] [id number] [address] [place] [id number] 16 Jan, 2017 [facility] [address] [facility] [id number] [address] [place] [phone] 14 Jan, 2017 Diabetes mellitus E11.9 ; Hy pothyroid E03.9 ; GERD (gastroesophageal reflux disease) K21.9 ; Insomnia G47.00 ; Functional diarrhea K59.1 ; Neuropathy G62.9 ; Depression F32.9 ; Chronic pain G89.29 ; Irritable bowel syndrome with diarrhea K58.0 ; Overactive bladder N32.81 ; Mixed hyperlipidemia E78.2 and Bronchitis J40 [facility] [address] [facility] [id number] [address] [place] [phone] Dec, [facility] [address] [facility] [id number] [address] [place] [phone] Dec, [facility] [address] [facility] [id number] [address] [place] [id number] Dec, [facility] [address] [facility] [id number] [address] [place] [id number] Dec, [facility] [address] [place] [id number] [address] [place] [id number] Dec, Chronic pain G89.29 [facility] [address] [facility] [id number] [address] [place] [id number] Dec, [facility] [address] [place] [id number] [address] [place] [id number] Dec, [facility] [address] [facility] [id number] [address] [place] [id number] Dec, Type 2 diabetes mellitus wit h foot ulcer E11.621 [place] [id number] [place] [id number] [address] [place] [id number] 17 Dec, 2016 Type 2 diabetes mellitus wit h foot ulcer E11.621 [facility] [address] [facility] [id number] [address] [place] [phone] 14 Dec, 2016 HTN (hypertension) I10 ; Dep ression F32.9 ; Type 2 diabetes mellitus with foot ulcer E11.621 ; Functional diarrhea K59.1 ; Irritable bowel syndrome with diarrhea K58.0 ; Chronic pain G89.29 ; Insomnia G47.00 ; Overactive bladder N32.81 ; Mixed hyperlipidemia E78.2 ; Gastroesophageal reflux disease with esophagitis K21.0 and Acquired hypothyroidism E03.9 [place] [address] [place] [id number] [place] [id number] Nov, [facility] [address] [place] [id number] [address] [place] [id number] Oct, [facility] [address] [place] [id number] [place] [phone] Oct, [place] [address] [place] [id number] [place] [phone] Oct, [place] [address] [place] [id number] [place] [phone] Sep, Functional diarrhea K59.1 ; HTN (hypertension) I10 ; Diabetes mellitus E11.9 ; Depression F32.9 ; Overactive bladder N32.81 ; Mixed hyperlipidemia E78.2 ; Gastroesophageal reflux disease without esophagitis K21.9 ; Chronic pain G89.29 ; Insomnia G47.00 and Acquired hypothyroidism E03.9 [place] [address] [id number] Sep, [place] [address] [place] [id number] [place] [phone] Aug, Encounter for immunization Z 23 [place] [address] [place] [id number] [place] [id number] 06 Aug, 2016 [place] [address] [place] [id number] [place] [phone] Jul, [place] [address] [place] [id number] [place] [phone] Jun, Type 2 diabetes mellitus wit hout complications E11.9 ; HTN (hypertension) I10 ; Hypothyroid E03.9 ; Neuropathy G62.9 ; Depression F32.9 ; Chronic pain G89.29 ; GERD (gastroesophageal reflux disease) K21.9 ; Insomnia G47.00 ; Overactive bladder N32.81 ; Mixed hyperlipidemia E78.2 ; Diarrhea of infectious origin A09 and Environmental allergies Z91.09 [place] [address] [address] Apr, [place] [address] [address] March, Hypothyroidism, unspecified E03.9 and Mixed hyperlipidemia E78.2 [place] [address] [address] March, Diabetes mellitus E11.9 ; HT N (hypertension) I10 ; Hypothyroid E03.9 ; Depression F32.9 ; Overactive bladder N32.81 ; Other chronic pain G89.29 ; Lumbago with sciatica, unspecified side M54.40 ; Environmental allergies Z91.09 and Gastroesophageal reflux disease, esophagitis presence not specified K21.9 [place] [address] [address] March, [place] [address] [address] Jan, HTN (hypertension) I10 ; Hyp othyroid E03.9 ; Neuropathy G62.9 ; Diabetes mellitus E11.9 ; Chronic pain G89.29 ; GERD (gastroesophageal reflux disease) K21.9 ; Overactive bladder N32.81 and Depression F32.9 [place] [address] [address] Dec, Ear pain, left H92.02 ; HTN (hypertension) I10 ; Hypothyroid E03.9 ; Neuropathy G62.9 ; Diabetes mellitus E11.9 ; Depression F32.9 ; GERD (gastroesophageal reflux disease) K21.9 ; Insomnia G47.00 and Overactive bladder N32.81 [place] [address] [address] Nov, Overactive bladder N32.81 an d Chronic pain G89.29 [place] [address] [address] Nov, Kidney failure N19 [place] [id number] [facility] [id number] [address] [place] [id number] Nov, [facility] [address] [id number] Nov, [facility] [address] [place] [id number] [place] [phone] Nov, Diabetes mellitus E11.9 ; De pression F32.9 ; Chronic pain G89.29 ; GERD (gastroesophageal reflux disease) K21.9 ; Insomnia G47.00 ; HTN (hypertension) I10 ; Hypothyroid E03.9 ; COPD (chronic obstructive pulmonary disease) J44.9 ; Bladder incontinence R32 and Incontinence R32 [place] [address] [address] Sep, Type 2 diabetes mellitus wit h foot ulcer E11.621 and Chromosomal abnormality, 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 [place] [address] [address] Sep, [place] [address] [address] Aug, [place] [address] [id number] Aug, [place] [address] [address] Aug, HTN (hypertension) I10 ; Enc ounter for immunization Z23 ; Hypothyroid E03.9 ; Neuropathy G62.9 ; Diabetes mellitus E11.9 ; Depression F32.9 ; Chronic pain G89.29 ; GERD (gastroesophageal reflux disease) K21.9 ; Insomnia G47.00 and COPD (chronic obstructive pulmonary disease) J44.9 [facility] [address] [address] Jun, [facility] [address] [address] Jun, [facility] [address] [address] May, Essential hypertension, ivis gn 401.1 ; Unspecified hypothyroidism 244.9 ; Insomnia, unspecified 780.52 ; Shortness of breath 786.05 ; Depression 311 ; COPD (chronic obstructive pulmonary disease) 496 ; GERD (gastroesophageal reflux disease) 530.81 and Diabetes 1.5, 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 [place] [address] [address] May, [facility] [address] [address] May, [place] [address] [address] May, Shortness of breath 786.05 ; Essential hypertension, benign 401.1 ; Diabetes mellitus 250.00 ; Hyperlipidemia 272.4 ; Hypothyroid 244.9 ; Insomnia 780.52 and Cough 786.2 [place] [address] [address] Apr, [facility] [address] [address] March, Shortness of breath 786.05 ; Nausea with vomiting 787.01 ; Essential hypertension, benign 401.1 ; Diabetes mellitus 250.00 ; Hyperlipidemia 272.4 and Hypothyroid 244.9 [place] [address] [address] Feb, [facility] [address] [address] Feb, [facility] [address] [address] Jan, [facility] [address] [address] Jan, [facility] [address] [address] Jan, [facility] [address] [id number] [address] [place] [address], [place] [address] Jan, [facility] [address] [id number] [address] [place] [address], [place] [address] Jan, [facility] [address] [id number] [address] [place] [address], [place] [address] Jan, 2014 [facility] [address] [id number] [address] [place] [address], [place] [address] Jan, 2014 [facility] [address] [id number] [address] [place] [address], [place] [address] Jan, [facility] [address] [id number] [address] [place] [address], [place] [address] Jan, [facility] [address] [id number] [address] [place] [address], [place] [address] Jan, [facility] [address] [id number] [address] [place] [address], [place] [address] Dec, 2014 [facility] [address] [id number] [address] [place] [address], [place] [address] Dec, 2014 [facility] [address] [id number] [address] [place] [address], [place] [address] Dec, 2014 [facility] [address] [id number] [address] [place] [address], [place] [address] Dec, 2014 [facility] [address] [id number] [address] [place] [address], [place] [address] Dec, 2014 [facility] [address] [id number] [address] [place] [address], [place] [address] Dec, 2014 [facility] [address] [id number] [address] [place] [address], [place] [address] Dec, 2014 [facility] [address] [id number] [address] [place] [id number] Dec, 2014 [facility] [address] [id number] [address] [place] [id number] 04 Dec, 2014 [facility] [address] [id number] [address] [place] [address], [place] [address] Dec, [facility] [address] [id number] [address] [place] [address], [place] [address] Oct, [facility] [address] [id number] [address] [place] [address], [place] [address] Oct, [facility] [address] [id number] [address] [place] [address], [place] [address] Oct, [facility] [address] [id number] [address] [place] [address], [place] [address] Oct, [facility] [address] [id number] [address] [place] [address], [place] [address] Oct, [facility] [address] [id number] [address] [place] [address], [place] [address] Oct, [facility] [address] [id number] [address] [place] [address], [place] [address] Oct, [facility] [address] [id number] [address] [place] [address], [place] [address] Oct, [facility] [address] [id number] [address] [place] [address], [place] [address] Oct, [facility] [address] [id number] [address] [place] [address], [place] [address] Oct, [facility] [address] [id number] [address] [place] [address], [place] [address] Oct, [facility] [address] [id number] [address] [place] [address], [place] [address] Oct, [facility] [address] [id number] [address] [place] [address], [place] [address] Oct, [facility] [address] [id number] [address] [place] [address], [place] [address] Oct, [facility] [address] [id number] [address] [place] [address], [place] [address] Sep, [facility] [address] [id number] [address] [place] [address], [place] [address] Sep, [facility] [address] [id number] [address] [place] [address], [place] [address] Sep, [facility] [address] [id number] [address] [place] [address], [place] [address] Sep, [facility] [address] [id number] [address] [place] [address], [place] [address] Sep, [facility] [address] [id number] 05 [place] [address], [place] [address] Sep, [facility] [address] [id number] [address] [place] [address], [place] [address] Sep, [facility] [address] [id number] [address] [place] [address], [place] [address] Sep, [facility] [address] [id number] [address] [place] [address], [place] [address] Sep, [facility] [address] [id number] [address] [place] [address], [place] [address] Aug, [facility] [address] [id number] [address] [place] [address], [place] [address] Aug, [facility] [address] [id number] [address] [place] [address], [place] [address] Aug, [facility] [address] [id number] [address] [place] [address], [place] [address] 17 Aug, 2014 [facility] [address] [id number] [address] [place] [address], [place] [address] 16 Aug, 2014 [facility] [address] [id number] [address] [place] [address], [place] [address] 13 Aug, 2014 [facility] [address] [id number] [address] [place] [address], [place] [address] Aug, [facility] [address] [id number] [address] [place] [address], [place] [address] Aug, [facility] [address] [id number] [address] [place] [address], [place] [address] Aug, [facility] [address] [id number] [address] [place] [address], [place] [address] Jul, [facility] [address] [id number] [address] [place] [address], [place] [address] Jul, [facility] [address] [id number] [address] [place] [address], [place] [address] Jul, [facility] [address] [id number] [address] [place] [address], [place] [address] Jul, [facility] [address] [id number] [address] [place] [address], [place] [address] Jul, [facility] [address] [id number] [address] [place] [address], [place] [address] Jul, [facility] [address] [id number] [address] [place] [address], [place] [address] Jul, [facility] [address] [id number] [address] [place] [address], [place] [address] Jul, [facility] [address] [id number] [address] [place] [address], [place] [address] Jul, [facility] [address] [id number] [address] [place] [address], [place] [address] Jul, [facility] [address] [id number] [address] [place] [address], [place] [address] Jun, [facility] [address] [id number] [address] [place] [address], [place] [address] Jun, [facility] [address] [id number] [address] [place] [address], [place] [address] Jun, [facility] [address] [id number] [address] [place] [address], [place] [address] Jun, [facility] [address] [id number] [facility] [place] [address] Jun, [facility] [address] [id number] [facility] [place] [address] Jun, [facility] [address] [id number] [address] [place] [address], [place] [address] Jun, [facility] [address] [id number] [address] [place] [address], [place] [address] Jun, [facility] [address] [id number] [address] [place] [address], [place] [address] Jun, [facility] [address] [id number] [address] [place] [address], [place] [address] Jun, [facility] [address] [id number] [address] [place] [address], [place] [address] Jun, [facility] [address] [id number] [address] [place] [address], [place] [address] Jun, [facility] [address] [id number] [address] [place] [address], [place] [address] May, [facility] [address] [id number] [address] [place] [address], [place] [address] May, [facility] [address] [id number] [address] [place] [address], [place] [address] May, [facility] [address] [id number] [address] [place] [address], [place] [address] May, [facility] [address] [id number] [address] [place] [address], [place] [address] May, [facility] [address] [id number] [address] [place] [address], [place] [address] May, [facility] [address] [id number] [address] [place] [address], [place] [address] March, [facility] [address] [id number] [facility] [place] [address] March, [facility] [address] [id number] [facility] [place] [address] March, [facility] [address] [id number] [address] [place] [address], [place] [address] March, [facility] [address] [id number] [address] [place] [address], [place] [address] March, [facility] [address] [id number] [address] [place] [address], [place] [address] March, [facility] [address] [id number] [address] [place] [address], [place] [address] Feb, [facility] [address] [id number] [address] [place] [address], [place] [address] Feb, [facility] [address] [id number] [address] [place] [address], [place] [address] Feb, [facility] [address] [id number] [address] [place] [address], [place] [address] Feb, [facility] [address] [id number] [address] [place] [address], [place] [address] Jan, [facility] [address] [id number] [address] [place] [address], [place] [address] Jan, [facility] [address] [id number] [address] [place] [address], [place] [address] Jan, [facility] [address] [id number] [address] [place] [address], [place] [address] Jan, [facility] [address] [id number] [address] [place] [address], [place] [address] Jan, [facility] [address] [id number] [address] [place] [address], [place] [address] Jan, [facility] [address] [id number] [address] [place] [address], [place] [address] Jan, [facility] [address] [id number] [address] [place] [address], [place] [address] Jan, [facility] [address] [id number] [address] [place] [address], [place] [address] Jan, [facility] [address] [id number] [address] [place] [address], [place] [address] Jan, [facility] [address] [id number] [address] [place] [address], [place] [address] Jan, [facility] [address] [id number] [address] [place] [address], [place] [address] Jan, [facility] [address] [id number] [address] [place] [address], [place] [address] Dec, [facility] [address] [id number] [address] [place] [address], [place] [address] Dec, [facility] [address] [id number] [address] [place] [address], [place] [address] Dec, [facility] [address] [id number] [address] [place] [address], [place] [address] Dec, [facility] [address] [id number] [address] [place] [address], [place] [address] Dec, [facility] [address] [id number] [address] [place] [address], [place] [address] Dec, [facility] [address] [id number] [address] [place] [address], [place] [address] Nov, [facility] [address] [id number] [address] [place] [address], [place] [address] Nov, [facility] [address] [id number] [address] [place] [address], [place] [address] Oct, [facility] [address] [id number] [address] [place] [address], [place] [address] Oct, [facility] [address] [id number] [address] [place] [address], [place] [address] Oct, [facility] [address] [id number] [address] [place] [address], [place] [address] Oct, [facility] [address] [id number] [address] [place] [address], [place] [address] Oct, [facility] [address] [id number] [address] [place] [address], [place] [address] Oct, [facility] [address] [id number] [address] [place] [address], [place] [address] Sep, [facility] [address] [id number] [address] [place] [address], [place] [address] Sep, [facility] [address] [id number] [address] [place] [address], [place] [address] Sep, [facility] [address] [id number] [address] [place] [address], [place] [address] Sep, [facility] [address] [id number] [address] [place] [address], [place] [address] Aug, [facility] [address] [id number] [address] [place] [address], [place] [address] Aug, [facility] [address] [id number] [address] [place] [address], [place] [address] Aug, [facility] [address] [id number] [address] [place] [address], [place] [address] 17 Jul, 2013 [facility] [address] [id number] [address] [place] [address], [place] [address] 14 Jul, 2013 [facility] [address] [id number] [address] [place] [address], [place] [address] Jul, [facility] [address] [id number] [address] [place] [address], [place] [address] Jun, [facility] [address] [id number] [address] [place] [address], [place] [address] Jun, [facility] [address] [id number] [address] [place] [address], [place] [address] Jun, [facility] [address] [id number] [address] [place] [address], [place] [address] Apr, [facility] [address] [id number] [address] [place] [address], [place] [address] Apr, [facility] [address] [id number] [address] [place] [address], [place] [address] March, [facility] [address] [id number] [address] [place] [address], [place] [address] March, [facility] [address] [id number] [address] [place] [address], [place] [address] March, [facility] [address] [id number] [address] [place] [address], [place] [address] March, [facility] [address] [id number] [address] [place] [address], [place] [address] Feb, [facility] [address] [id number] [address] [place] [address], [place] [address] Jan, [facility] [address] [id number] [address] [place] [address], [place] [address] Dec, [facility] [address] [id number] [address] [place] [address], [place] [address] 08 Dec, 2012 [facility] [address] [id number] [address] [place] [address], [place] [address] 07 Dec, 2012 [facility] [address] [id number] [address] [place] [address], [place] [address] Nov, [facility] [address] [id number] [address] [place] [address], [place] [address] Oct, [facility] [address] [id number] [address] [place] [address], [place] [address] Oct, [facility] [address] [id number] [address] [place] [address], [place] [address] Sep, [facility] [address] [id number] [address] [place] [address], [place] [address] Sep, [facility] [address] [id number] [address] [place] [address], [place] [address] Sep, [facility] [address] [id number] [address] [place] [address], [place] [address] Sep, [facility] [address] [id number] [address] [place] [address], [place] [address] Sep, [facility] [address] [id number] [address] [place] [address], [place] [address] Sep, [facility] [address] [id number] [address] [place] [address], [place] [address] Sep, [facility] [address] [id number] [address] [place] [address], [place] [address] Aug, [facility] [address] [id number] [address] [place] [address], [place] [address] Aug, [facility] [address] [id number] [address] [place] [address], [place] [address] Aug, [facility] [address] [id number] [address] [place] [address], [place] [address] Aug, [facility] [address] [id number] [address] [place] [address], [place] [address] Aug, [facility] [address] [id number] [address] [place] [address] Aug, [facility] [address] [id number] [address] [place] [address], [place] [address] Aug, [facility] [address] [id number] [address] [place] [address], [place] [address] Aug, [facility] [address] [id number] [address] [place] [address], [place] [address] Jul, [facility] [address] [id number] [address] [place] [address], [place] [address] Jul, [facility] [address] [id number] [address] [place] [address], [place] [address] Jun, [facility] [address] [id number] [address] [place] [address], [place] [address] May, [facility] [address] [id number] [address] [place] [address], [place] [address] Apr, [facility] [address] [id number] [address] [place] [address], [place] [address] Apr, [facility] [address] [id number] [address] [place] [address], [place] [address] Apr, [facility] [address] [id number] [address] [place] [address], [place] [address] March, [facility] [address] [id number] [address] [place] [address], [place] [address] March, [facility] [address] [id number] [address] [place] [address], [place] [address] March, [facility] [address] [id number] [address] [place] [address], [place] [address] March, [facility] [address] [id number] [address] [place] [address], [place] [address] March, [facility] [address] [id number] [address] [place] [address], [place] [address] March, [facility] [address] [id number] [address] [place] [address], [place] [address] March, [facility] [address] [id number] [address] [place] [address], [place] [address] Jan, [facility] [address] [id number] [address] [place] [address], [place] [address] Jan, [facility] [address] [id number] [address] [place] [address], [place] [address] 20 Jan, 2012 [facility] [address] [id number] [address] [place] [address], [place] [address] Jan, [facility] [address] [id number] [address] [place] [address], [place] [address] Jan, [facility] [address] [id number] [address] [place] [address], [place] [address] Dec, [facility] [address] [id number] [address] [place] [address], [place] [address] Dec, [facility] [address] [id number] [address] [place] [address], [place] [address] Nov, [facility] [address] [id number] [address] [place] [address], [place] [address] Nov, [facility] [address] [id number] [address] [place] [address], [place] [address] Nov, [facility] [address] [id number] [address] [place] [address], [place] [address] Nov, [facility] [address] [id number] [address] [place] [address], [place] [address] Oct, [facility] [address] [id number] [address] [place] [address], [place] [address] Oct, [facility] [address] [id number] [address] [place] [address], [place] [address] 14 Sep, 2011 [facility] [address] [id number] [address] [place] [address], [place] [address] 10 Sep, 2011 [facility] [address] [id number] [address] [place] [address], [place] [address] 10 Sep, 2011 [facility] [address] [id number] [address] [place] [address], [place] [address] 11 May, 2011 [facility] [address] [id number] [address] [place] [address], [place] [address] 20 Nov, 2010 [facility] [address] [id number] [address] [place] [address], [place] [address] 29 Oct, 2010 [facility] [address] [id number] [address] [place] [address], [place] [address] 14 Oct, 2010 [facility] [address] [id number] [address] [place] [address], [place] [address] 08 Oct, 2010 [facility] [address] [id number] [address] [place] [address], [place] [address] 15 Sep, 2010 [facility] [address] [id number] [address] [place] [address], [place] [address] 02 Sep, 2010 [facility] [address] [id number] [address] [place] [address], [place] [address] Aug, [facility] [address] [id number] [address] [place] [address], [place] [address] March, [facility] [address] [id number] [address] [place] [address], [place] [address] 17 Oct, 2009 [facility] [address] [id number] [address] [place] [address], [place] [address] 17 Oct, 2009 [facility] [address] [id number] [address] [place] [address], [place] [address] Oct, [facility] [address] [id number] [address] [place] [address], [place] [address] 02 Oct, 2009 [facility] [address] [id number] [address] [place] [address], [place] [id number] Sep, [facility] [address] [id number] [address] [place] [address], [place] [id number] Sep, [facility] [address] [id number] [address] [place] [address], [place] [id number] Sep, [facility] [address] [id number] [address] [place] [address], [place] [id number] Aug, [facility] [address] [id number] [address] [place] [address], [place] [id number] Aug, [facility] [address] [facility] [id number] [address] [place] [id number] Aug, [facility] [address] [facility] [id number] [address] [place] [id number] Jan, IMMUNIZATIONS No Known Immunizations SOCIAL HISTORY Never Assessed REASON FOR VISIT med/lab order PLAN OF CARE VITAL SIGNS MEDICATIONS Medication Instructions Dosage Frequency Start Date End Date Duration S gato Levothyroxine Sodium 100 mcg Orally Once a day on an e mpty stomach with a full glass of water 1 tablet 30 days Active RESULTS Name Result Date Reference Range Ultrasound : Liver 2018-04-09 PROCEDURES No Known procedures INSTRUCTIONS MEDICATIONS ADMINISTERED [...]
[2020-06-13] MEDS ORDERED: ONDANSETRON 4 MG/2 ML (SDV) Z0FRAN IVP ONE (16:30)
--- OUTSIDE RECORDS SUMMARY | 2020-06-13 16:30 | XMS REPORT ---
Author Author Jah PARKER Organization [facility] Address [address] [place] [address] Care Team Providers Care Salon/Spa Manager Name Role Phone PARKERPATRICIA Mckeon Unavailable PROBLEMS Type Condition ICD9-CM Code QTK96-UF Code Onset Dates Condition S tatus SNOMED Code Problem Gastroesophageal reflux disease with esophagitis K 21.0 Active 648276581 Problem [facility] current use of insulin Z79.4 Active 417170053 Problem Irritable bowel syndrome with diarrhea K58.0 Active 500866793 Problem Chronic fatigue R53.82 Active 8422 9001 Problem Recurrent major depressive disorder, in partial remission F33.41 Active 55914565 Problem Essential (primary) hypertension I10 Active 96894700 Problem Type 2 diabetes mellitus with hyperglycemia E11.65 Active 30332455 Problem Current non-adherence to medical treatment Z91.19 Active 9711578 Problem Pulmonary emphysema, unspecified emphysema type J4 3.9 Active 16957706 Problem Neuropathy G62.9 Active 616372536 Problem Hypothyroid E03.9 Active 13328884 Problem Thrombocytosis D47.3 Active 83246 09 Problem Overactive bladder N32.81 Active 2 55018059 Problem Chronic pain G89.29 Active 8425688 1 Problem Mixed hyperlipidemia E78.2 Active 179163429 ALLERGIES Substance Reaction Event Type Date Status Trilipix nausea Drug Allergy Feb, Active Niacin rash Drug Allergy Feb, Active Metformin HCl diarrhea Drug Allergy Feb, Active Januvia diarrhea Drug Allergy Feb, Active Gemfibrozil diarrhea Drug Allergy Feb, Active Actos diarrhea Drug Allergy Feb, Active ENCOUNTERS Encounter Location Date Diagnosis [facility] [address] [facility] [id number] [address] [place] [phone] Jun, [facility] [address] [facility] [id number] [address] [place] [phone] Jun, [facility] [address] [facility] [id number] [address] [place] [address] May, [place] [address] [facility] [id number] [address] [place] [address] May, Generalized abdominal pain R 10.84 and Candidal dermatitis B37.2 [place] [address] [place] [id number] [address] [place] [address] May, [place] [address] [facility] [id number] [address] [place] [address] May, [place] [address] [place] [id number] [address] [place] [address] May, Nodular radiologic density R 93.8 ; Weight loss, unintentional R63.4 and Pulmonary emphysema, unspecified emphysema type J43.9 [place] [address] [place] [id number] [place] [address] May, Chronic pain G89.29 [place] [address] [place] [id number] [place] [address] May, Syncope and collapse R55 ; C hronic fatigue R53.[address] lung screening R91.8 [place] [address] [place] [id number] [address] [place] [address] May, [place] [address] [place] [id number] [address] [place] [address] Apr, Chronic fatigue R53.82 ; Abn ormal chest CT R93.8 ; Elevated erythrocyte sedimentation rate R70.0 ; Hypothyroid E03.9 and Recurrent major depressive disorder, in partial remission F33.41 [place] [address] [facility] [id number] [address] [place] [address] Apr, Hypothyroid E03.9 [place] [address] [facility] [id number] [address] [place] [address] Apr, Depression F32.9 [place] [address] [place] [id number] [address] [place] [phone] Apr, [place] [address] [facility] [id number] [address] [place] [address] March, [place] [address] [facility] [id number] [address] [place] [address] March, Hypothyroid E03.9 [place] [address] [facility] [id number] [address] [place] [address] March, Diabetes mellitus E11.9 and Hypothyroid E03.9 [place] [address] [facility] [id number] [address] [place] [address] March, Diabetes mellitus E11.9 [place] [address] [facility] [id number] [address] [place] [address] March, Hypothyroid E03.9 and Elevat ed liver enzymes R74.8 [place] [address] [facility] [id number] [address] [place] [address] March, Type 2 diabetes mellitus wit h hyperglycemia E11.65 ; long term current use of insulin Z79.4 ; Pulmonary emphysema, unspecified emphysema type J43.9 ; Hypothyroid E03.9 ; Neuropathy G62.9 ; Mixed hyperlipidemia E78.2 ; Chronic pain G89.29 ; Gastroesophageal reflux disease with esophagitis K21.0 ; Irritable bowel syndrome with diarrhea K58.0 ; Overactive bladder N32.81 and Recurrent major depressive disorder, in partial remission F33.41 [place] [address] [facility] [id number] [address] [place] [address] Feb, Chronic pain G89.29 [place] [address] [facility] [id number] [address] [place] [id number] Feb, Type 2 diabetes mellitus wit h hyperglycemia E11.65 and Skin lesion of scalp L98.9 [place] [address] [facility] [id number] [address] [place] [address] Feb, [place] [address] [facility] [id number] [address] [place] [address] Jan, Type 2 diabetes mellitus wit h [...] bowel syndrome with diarrhea K58.0 [place] [address] [id number] [address] [place] [address] Jan, [place] [address] [facility] [id number] [address] [place] [address] Jan, Controlled substance agreeme nt signed Z79.899 [place] [address] [facility] [id number] [address] [place] [address] Dec, Type 2 diabetes mellitus wit h [...] treatment Z91.19 and Overweight (BMI 25.0-29.9) E66.3 [place] [address] [facility] [id number] [address] [place] [address] Dec, Controlled substance agreeme nt signed Z79.899 [place] [address] [id number] [address] [place] [address] Nov, Type 2 diabetes mellitus wit h hyperglycemia E11.65 and Current non- adherence to medical treatment Z91.19 [place] [address] [facility] [id number] [address] [place] [address] Nov, [place] [address] [facility] [id number] [address] [place] [address] Nov, Chronic pain G89.29 [facility] [address] [id number] [address] [place] [address] Nov, [facility] [address] [facility] [id number] [address] [place] [address] Nov, Hypothyroid E03.9 [facility] [address] [facility] [id number] [address] [place] [address] Nov, Hypothyroid E03.9 [facility] [address] [facility] [id number] [address] [place] [address] Nov, Pulmonary emphysema, unspeci fied emphysema type J43.9 and Irritable bowel syndrome with diarrhea K58.0 [facility] [address] [facility] [id number] [address] [place] [address] Oct, [facility] [address] [facility] [id number] [address] [place] [phone] Oct, [facility] [address] [facility] [id number] [address] [place] [address] Oct, [facility] [address] [facility] [id number] [address] [place] [address] Oct, [facility] [address] [facility] [id number] [address] [place] [address] Oct, Chronic pain G89.29 [facility] [address] [facility] [id number] [address] [place] [address] Oct, Diabetes mellitus E11.9 ; De pression F32.9 ; Mixed hyperlipidemia E78.2 ; Hypotension, unspecified hypotension type I95.9 ; Pulmonary emphysema, unspecified emphysema type J43.9 and Weight loss, unintentional R63.4 [facility] [address] [facility] [id number] [address] [place] [address] Oct, Chronic pain G89.29 [facility] [address] [facility] [id number] [address] [place] [address] Sep, Chronic pain G89.29 [facility] [address] [place] [id number] [address] [place] [address] Sep, Hypothyroid E03.9 and Diabet es mellitus E11.9 [facility] [address] [place] [id number] [address] [place] [address] Aug, Type 2 diabetes mellitus wit h hyperglycemia E11.65 ; long term current use of insulin Z79.4 ; Essential (primary) hypertension I10 ; Hypothyroid E03.9 ; Neuropathy G62.9 ; Chronic pain G89.29 ; Mixed hy perlipidemia E78.2 and Encounter for immunization Z23 [facility] [address] [place] [id number] [address] [place] [address] Aug, Chronic pain G89.29 [place] [address] [address] Aug, Overactive bladder N32.81 ; Diabetes mellitus E11.9 and Chronic pain G89.29 [place] [address] [address] Jul, [place] [address] [address] Jun, [place] [address] [address] Jun, [place] [address] [address] Jun, Hypothyroid E03.9 [place] [address] [place] [id number] [address] [place] [address] Jun, Diabetes mellitus E11.9 ; Hy pothyroid E03.9 ; Neuropathy G62.9 ; Chronic pain G89.29 and Neck mass R22.1 [place] [address] [place] [id number] [address] [place] [address] Apr, [place] [address] [place] [id number] [place] [address] Apr, Acute cystitis without hemat uria N30.00 [place] [id number] [facility] [id number] [address] [place] [address] March, [facility] [address] [facility] [id number] [address] [place] [address] March, [facility] [address] [facility] [id number] [address] [place] [id number] March, Near syncope R55 [facility] [address] [facility] [id number] [address] [place] [id number] Feb, [facility] [address] [facility] [id number] [address] [place] [address] Feb, Chronic pain G89.29 [facility] [address] [place] [id number] [address] [place] [address] Feb, [facility] [address] [place] [id number] [address] [place] [address] Feb, [facility] [address] [place] [id number] [address] [place] [address] Jan, Chronic pain G89.29 [facility] [address] [place] [id number] [address] [place] [address] Jan, [facility] [address] [place] [id number] [address] [place] [phone] Jan, [facility] [address] [place] [id number] [address] [place] [phone] Jan, Diabetes mellitus E11.9 ; Hy pothyroid E03.9 ; GERD (gastroesophageal reflux disease) K21.9 ; Insomnia G47.00 ; Functional diarrhea K59.1 ; Neuropathy G62.9 ; Depression F32.9 ; Chronic pain G89.29 ; Irritable bowel syndrome with diarrhea K58.0 ; Overactive bladder N32.81 ; Mixed hyperlipidemia E78.2 and Bronchitis J40 [facility] [address] [place] [id number] [address] [place] [id number] Dec, [facility] [address] [place] [id number] [address] [place] [id number] Dec, [facility] [address] [facility] [id number] [address] [place] [address] Dec, [facility] [address] [facility] [id number] [address] [place] [address] Dec, [facility] [address] [place] [id number] [place] [address] Dec, Chronic pain G89.29 [facility] [address] [facility] [id number] [place] [address] Dec, [facility] [address] [address] Dec, [facility] [address] [address] Dec, Type 2 diabetes mellitus wit h foot ulcer E11.621 [facility] [address] [place] [id number] [address] [place] [address] Dec, Type 2 diabetes mellitus wit h foot ulcer E11.621 [facility] [address] [address] Dec, HTN (hypertension) I10 ; Dep ression F32.9 ; Type 2 diabetes mellitus with foot ulcer E11.621 ; Functional diarrhea K59.1 ; Irritable bowel syndrome with diarrhea K58.0 ; Chronic pain G89.29 ; Insomnia G47.00 ; Overactive bladder N32.81 ; Mixed hyperlipidemia E78.2 ; Gastroesophageal reflux disease with esophagitis K21.0 and Acquired hypothyroidism E03.9 [facility] [id number] [place] [address] Nov, [facility] [address] [address] Oct, [facility] [address] [address] Oct, [place] [address] [place] [id number] [address] [place] [address] Oct, [place] [address] [address] Sep, Functional diarrhea K59.1 ; HTN (hypertension) I10 ; Diabetes mellitus E11.9 ; Depression F32.9 ; Overactive bladder N32.81 ; Mixed hyperlipidemia E78.2 ; Gastroesophageal reflux disease without esophagitis K21.9 ; Chronic pain G89.29 ; Insomnia G47.00 and Acquired hypothyroidism E03.9 [place] [address] [address] Sep, [place] [address] [address] Aug, Encounter for immunization Z 23 [place] [address] [address] Aug, [place] [address] [address] Jul, [place] [address] [address] Jun, Type 2 diabetes mellitus wit hout complications E11.9 ; HTN (hypertension) I10 ; Hypothyroid E03.9 ; Neuropathy G62.9 ; Depression F32.9 ; Chronic pain G89.29 ; GERD (gastroesophageal reflux disease) K21.9 ; Insomnia G47.00 ; Overactive bladder N32.81 ; Mixed hyperlipidemia E78.2 ; Diarrhea of infectious origin A09 and Environmental allergies Z91.09 [place] [address] [address] Apr, [place] [address] [address] March, Hypothyroidism, unspecified E03.9 and Mixed hyperlipidemia E78.2 [place] [address] [place] [id number] [place] [address] March, Diabetes mellitus E11.9 ; HT N (hypertension) I10 ; Hypothyroid E03.9 ; Depression F32.9 ; Overactive bladder N32.81 ; Other chronic pain G89.29 ; Lumbago with sciatica, unspecified side M54.40 ; Environmental allergies Z91.09 and Gastroesophageal reflux disease, esophagitis presence not specified K21.9 [place] [id number] [place] [id number] [address] [place] [address] March, [place] [address] [place] [id number] [place] [address] Jan, HTN (hypertension) I10 ; Hyp othyroid E03.9 ; Neuropathy G62.9 ; Diabetes mellitus E11.9 ; Chronic pain G89.29 ; GERD (gastroesophageal reflux disease) K21.9 ; Overactive bladder N32.81 and Depression F32.9 [place] [address] [address] Dec, Ear pain, left H92.02 ; HTN (hypertension) I10 ; Hypothyroid E03.9 ; Neuropathy G62.9 ; Diabetes mellitus E11.9 ; Depression F32.9 ; GERD (gastroesophageal reflux disease) K21.9 ; Insomnia G47.00 and Overactive bladder N32.81 [place] [address] [place] [id number] [address] [place] [address] Nov, Overactive bladder N32.81 an d Chronic pain G89.29 [place] [address] [place] [id number] [address] [place] [address] Nov, Kidney failure N19 [place] [address] [place] [id number] [address] [place] [address] Nov, [place] [address] [place] [id number] [address] [place] [address] Nov, [place] [address] [place] [id number] [address] [place] [address] Nov, Diabetes mellitus E11.9 ; De pression F32.9 ; Chronic pain G89.29 ; GERD (gastroesophageal reflux disease) K21.9 ; Insomnia G47.00 ; HTN (hypertension) I10 ; Hypothyroid E03.9 ; COPD (chronic obstructive pulmonary disease) J44.9 ; Bladder incontinence R32 and Incontinence R32 [address] [address] Sep, Type 2 diabetes mellitus wit h foot ulcer E11.621 and Chromosomal abnormality, 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 [address] Sep, [address] [address] Aug, [address] [address] Aug, [address] [address] Aug, HTN (hypertension) I10 ; Enc ounter for immunization Z23 ; Hypothyroid E03.9 ; Neuropathy G62.9 ; Diabetes mellitus E11.9 ; Depression F32.9 ; Chronic pain G89.29 ; GERD (gastroesophageal reflux disease) K21.9 ; Insomnia G47.00 and COPD (chronic obstructive pulmonary disease) J44.[address] [address] Jun, [address] [address] Jun, [address] [address] May, Essential hypertension, ivis gn 401.1 ; Unspecified hypothyroidism 244.9 ; Insomnia, unspecified 780.52 ; Shortness of breath 786.05 ; Depression 311 ; COPD (chronic obstructive pulmonary disease) 496 ; GERD (gastroesophageal reflux disease) 530.81 and Diabetes 1.5, 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 [address] May, [facility] [address] [facility] [id number] [address] [place] [address] May, [facility] [address] [facility] [id number] [address] [place] [address] May, Shortness of breath 786.05 ; Essential hypertension, benign 401.1 ; Diabetes mellitus 250.00 ; Hyperlipidemia 272.4 ; Hypothyroid 244.9 ; Insomnia 780.52 and Cough 786.2 [facility] [address] [facility] [id number] [address] [place] [address] Apr, [facility] [address] [facility] [id number] [address] [place] [address] March, Shortness of breath 786.05 ; Nausea with vomiting 787.01 ; Essential hypertension, benign 401.1 ; Diabetes mellitus 250.00 ; Hyperlipidemia 272.4 and Hypothyroid 244.9 [facility] [address] [facility] [id number] [address] [place] [address] Feb, [facility] [address] [facility] [id number] [address] [place] [address] Feb, [facility] [address] [place] [id number] [address] [place] [address] Jan, [facility] [address] [facility] [id number] [address] [place] [id number] Jan, [facility] [address] [facility] [id number] [address] [place] [address] Jan, [facility] [address] [facility] [id number] [address] [place] [address] Jan, [facility] [address] [facility] [id number] [address] [place] [id number] Jan, [facility] [address] [facility] [id number] [address] [place] [address] Jan, [facility] [address] [facility] [id number] [address] [place] [address] Jan, [facility] [address] [id number] [address] [place] [address], [place] [address] Jan, [facility] [address] [id number] [address] [place] [address], [place] [address] Jan, [facility] [address] [id number] [address] [place] [address], [place] [address] Jan, [facility] [address] [id number] [address] [place] [address], [place] [address] Dec, 2014 [facility] [address] [id number] [address] [place] [address], [place] [address] Dec, 2014 [facility] [address] [id number] [address] [place] [address], [place] [address] Dec, 2014 [facility] [address] [id number] [address] [place] [address], [place] [address] Dec, 2014 [facility] [address] [id number] [address] [place] [address], [place] [address] Dec, 2014 [facility] [address] [id number] [address] [place] [address], [place] [address] Dec, 2014 [facility] [address] [id number] [address] [place] [address], [place] [address] Dec, 2014 [facility] [address] [id number] [address] [place] [address], [place] [address] Dec, 2014 [facility] [address] [id number] [address] [place] [address], [place] [address] Dec, 2014 [facility] [address] [id number] [address] [place] [address], [place] [address] Dec, 2014 [facility] [address] [id number] [address] [place] [address], [place] [address] Oct, [facility] [address] [id number] [address] [place] [address], [place] [address] Oct, [facility] [address] [id number] [address] [place] [address], [place] [address] Oct, [facility] [address] [id number] [address] [place] [address], [place] [address] Oct, [facility] [address] [id number] [address] [place] [address], [place] [address] Oct, [facility] [address] [id number] [address] [place] [address], [place] [address] Oct, [facility] [address] [id number] [address] [place] [address], [place] [address] Oct, [facility] [address] [id number] [address] [place] [address], [place] [address] Oct, [facility] [address] [id number] [address] [place] [address], [place] [address] Oct, [facility] [address] [id number] [address] [place] [address], [place] [address] Oct, [facility] [address] [id number] [address] [place] [address], [place] [address] Oct, [facility] [address] [id number] [address] [place] [address], [place] [address] Oct, [facility] [address] [id number] [address] [place] [address], [place] [address] Oct, [facility] [address] [id number] [address] [place] [address], [place] [address] Oct, [facility] [address] [id number] [address] [place] [address], [place] [address] Sep, [facility] [address] [id number] [address] [place] [address], [place] [address] Sep, [facility] [address] [id number] [address] [place] [address], [place] [address] Sep, [facility] [address] [id number] [address] [place] [address], [place] [address] Sep, [facility] [address] [id number] [address] [place] [address], [place] [address] Sep, [facility] [address] [id number] [address] [place] [address], [place] [address] Sep, [facility] [address] [id number] [address] [place] [address], [place] [address] Sep, [facility] [address] [id number] [address] [place] [address], [place] [address] Sep, [facility] [address] [id number] [address] [place] [address], [place] [address] Sep, [facility] [address] [id number] [address] [place] [address], [place] [address] Aug, [facility] [address] [id number] [address] [place] [address], [place] [address] Aug, [facility] [address] [id number] [address] [place] [address], [place] [address] Aug, [facility] [address] [id number] [address] [place] [address], [place] [address] Aug, [facility] [address] [id number] [address] [place] [address], [place] [address] 16 Aug, 2014 [facility] [address] [id number] [address] [place] [address], [place] [address] Aug, [facility] [address] [id number] [address] [place] [address], [place] [address] Aug, [facility] [address] [id number] [address] [place] [address], [place] [address] Aug, [facility] [address] [id number] [address] [place] [address], [place] [address] Aug, [facility] [address] [id number] [address] [place] [address], [place] [address] 29 Jul, 2014 [facility] [address] [id number] [address] [place] [address] [place] [address] 29 Jul, 2013 [facility] [address] [id number] [facility] [place] [address] Jul, 2013 [facility] [address] [id number] [facility] [place] [address] Jul, 2013 [facility] [address] [id number] [address] [place] [address], [place] [address] Jul, 2013 [facility] [address] [id number] [address] [place] [address], [place] [address] Jul, 2013 [facility] [address] [id number] [address] [place] [address], [place] [address] Jul, 2013 [facility] [address] [id number] [address] [place] [address], [place] [address] Jul, 2013 [facility] [address] [id number] [address] [place] [address], [place] [address] Jul, 2013 [facility] [address] [id number] [address] [place] [address], [place] [address] Jul, [facility] [address] [id number] [address] [place] [address], [place] [address] Jun, [facility] [address] [id number] [address] [place] [address], [place] [address] Jun, [facility] [address] [id number] [address] [place] [address], [place] [address] Jun, [facility] [address] [id number] [address] [place] [address], [place] [address] Jun, [facility] [address] [id number] [address] [place] [address], [place] [address] Jun, [facility] [address] [id number] [address] [place] [address], [place] [address] Jun, [facility] [address] [id number] [address] [place] [address], [place] [address] Jun, [facility] [address] [id number] [facility] [place] [address] Jun, [facility] [address] [id number] [facility] [place] [address] Jun, [facility] [address] [id number] [facility] [place] [address] Jun, [facility] [address] [id number] [address] [place] [address], [place] [address] Jun, [facility] [address] [id number] [address] [place] [address], [place] [address] Jun, [facility] [address] [id number] [address] [place] [address], [place] [address] May, [facility] [address] [id number] [address] [place] [address], [place] [address] May, [facility] [address] [id number] [address] [place] [address], [place] [address] May, [facility] [address] [id number] [address] [place] [address], [place] [address] May, [facility] [address] [id number] [address] [place] [address], [place] [address] May, [facility] [address] [id number] [address] [place] [address], [place] [address] May, [facility] [address] [id number] [address] [place] [address], [place] [address] March, [facility] [address] [id number] [address] [place] [address], [place] [address] March, [facility] [address] [id number] [address] [place] [address], [place] [address] March, [facility] [address] [id number] [address] [place] [address], [place] [address] March, [facility] [address] [id number] [address] [place] [address], [place] [address] March, [facility] [address] [id number] [facility] [place] [address] March, [facility] [address] [id number] [address] [place] [address], [place] [address] Feb, [facility] [address] [id number] [address] [place] [address], [place] [address] Feb, [facility] [address] [id number] [address] [place] [address], [place] [address] Feb, [facility] [address] [id number] [address] [place] [address], [place] [address] Feb, [facility] [address] [id number] [address] [place] [address], [place] [address] Jan, [facility] [address] [id number] [address] [place] [address], [place] [address] Jan, [facility] [address] [id number] [address] [place] [address], [place] [address] Jan, [facility] [address] [id number] [address] [place] [address], [place] [address] Jan, [facility] [address] [id number] [address] [place] [address], [place] [address] Jan, [facility] [address] [id number] [address] [place] [address], [place] [address] Jan, [facility] [address] [id number] [address] [place] [address], [place] [address] Jan, [facility] [address] [id number] [address] [place] [address], [place] [address] Jan, [facility] [address] [id number] [address] [place] [address], [place] [address] Jan, [facility] [address] [id number] [address] [place] [address], [place] [address] Jan, [facility] [address] [id number] [facility] [place] [address] Jan, [facility] [address] [id number] [address] [place] [address], [place] [address] Jan, [facility] [address] [id number] [address] [place] [address], [place] [address] Dec, [facility] [address] [id number] [address] [place] [address], [place] [address] Dec, [facility] [address] [id number] [address] [place] [address], [place] [address] Dec, [facility] [address] [id number] [address] [place] [address], [place] [address] Dec, [facility] [address] [id number] [address] [place] [address], [place] [address] Dec, [facility] [address] [id number] [address] [place] [address], [place] [address] Dec, [facility] [address] [id number] [address] [place] [address], [place] [address] Nov, [facility] [address] [id number] [address] [place] [address], [place] [address] Nov, [facility] [address] [id number] [address] [place] [address], [place] [address] Oct, [facility] [address] [id number] [address] [place] [address], [place] [address] Oct, [facility] [address] [id number] [address] [place] [address], [place] [address] Oct, [facility] [address] [id number] [address] [place] [address], [place] [address] Oct, [facility] [address] [id number] [address] [place] [address], [place] [address] Oct, [facility] [address] [id number] [address] [place] [address], [place] [address] Oct, [facility] [address] [id number] [address] [place] [address], [place] [address] Sep, [facility] [address] [id number] [address] [place] [address], [place] [address] Sep, [facility] [address] [id number] [address] [place] [address], [place] [address] Sep, [facility] [address] [id number] [address] [place] [address], [place] [address] Sep, [facility] [address] [id number] [address] [place] [address], [place] [address] Aug, [facility] [address] [id number] [address] [place] [address], [place] [address] Aug, [facility] [address] [id number] [address] [place] [address], [place] [address] Aug, [facility] [address] [id number] [address] [place] [address], [place] [address] Jul, [facility] [address] [id number] [address] [place] [address], [place] [address] 14 Jul, 2013 [facility] [address] [id number] [address] [place] [address], [place] [address] Jul, [facility] [address] [id number] [address] [place] [address], [place] [address] Jun, [facility] [address] [id number] [address] [place] [address] Jun, [facility] [address] [id number] [address] [place] [address], [place] [address] Jun, [facility] [address] [id number] [address] [place] [address], [place] [address] Apr, [facility] [address] [id number] [address] [place] [address], [place] [address] Apr, [facility] [address] [id number] [address] [place] [address], [place] [address] March, [facility] [address] [id number] [address] [place] [address], [place] [address] March, [facility] [address] [id number] [address] [place] [address], [place] [address] March, [facility] [address] [id number] [address] [place] [address], [place] [address] March, [facility] [address] [id number] [address] [place] [address], [place] [address] Feb, [facility] [address] [id number] [address] [place] [address], [place] [address] Jan, [facility] [address] [id number] [address] [place] [address], [place] [address] 13 Dec, 2012 [facility] [address] [id number] [address] [place] [address], [place] [address] 08 Dec, 2012 [facility] [address] [id number] [address] [place] [address], [place] [address] 07 Dec, 2012 [facility] [address] [id number] [address] [place] [address], [place] [address] Nov, [facility] [address] [id number] [address] [place] [address], [place] [address] Oct, [facility] [address] [id number] [address] [place] [address], [place] [address] Oct, [facility] [address] [id number] [address] [place] [address], [place] [address] Sep, [facility] [address] [id number] [address] [place] [address], [place] [address] Sep, [facility] [address] [id number] [address] [place] [address], [place] [address] Sep, [facility] [address] [id number] [address] [place] [address], [place] [address] Sep, [facility] [address] [id number] [address] [place] [address], [place] [address] Sep, [facility] [address] [id number] [address] [place] [address], [place] [address] Sep, [facility] [address] [id number] [address] [place] [address], [place] [address] Sep, [facility] [address] [id number] [address] [place] [address], [place] [address] Aug, [facility] [address] [id number] [address] [place] [address], [place] [address] Aug, [facility] [address] [id number] [address] [place] [address], [place] [address] Aug, [facility] [address] [id number] [address] [place] [address], [place] [address] Aug, [facility] [address] [id number] [address] [place] [address], [place] [address] Aug, [facility] [address] [id number] [address] [place] [address], [place] [address] Aug, [facility] [address] [id number] [address] [place] [address], [place] [address] Aug, [facility] [address] [id number] [address] [place] [address] Aug, [facility] [address] [id number] [address] [place] [address] Jul, [facility] [address] [id number] [address] [place] [address], [place] [address] Jul, [facility] [address] [id number] [address] [place] [address], [place] [address] Jun, [facility] [address] [id number] [address] [place] [address] May, [facility] [address] [id number] [address] [place] [address] Apr, [facility] [address] [id number] [address] [place] [address], [place] [address] Apr, [facility] [address] [id number] [address] [place] [address], [place] [address] Apr, [facility] [address] [id number] [address] [place] [address], [place] [address] March, [facility] [address] [id number] [address] [place] [address], [place] [address] March, [facility] [address] [id number] [address] [place] [address], [place] [address] March, [facility] [address] [id number] [address] [place] [address], [place] [address] March, [facility] [address] [id number] [address] [place] [address], [place] [address] March, [facility] [address] [id number] [address] [place] [address], [place] [address] March, [facility] [address] [id number] [address] [place] [address], [place] [address] March, [facility] [address] [id number] [address] [place] [address], [place] [address] Jan, [facility] [address] [id number] [address] [place] [address], [place] [address] Jan, [facility] [address] [id number] [address] [place] [address], [place] [address] Jan, [facility] [address] [id number] [address] [place] [address], [place] [address] Jan, [facility] [address] [id number] [address] [place] [address], [place] [address] Jan, [facility] [address] [id number] [address] [place] [address], [place] [address] Dec, [facility] [address] [id number] [address] [place] [address], [place] [address] 06 Dec, 2011 [facility] [address] [id number] [address] [place] [address], [place] [address] Nov, [facility] [address] [id number] [address] [place] [address], [place] [address] 10 Nov, 2011 [facility] [address] [id number] [address] [place] [address], [place] [address] Nov, [facility] [address] [id number] [address] [place] [address], [place] [address] Nov, [facility] [address] [id number] [address] [place] [address], [place] [address] Oct, [facility] [address] [id number] [address] [place] [address], [place] [address] Oct, [facility] [address] [id number] [address] [place] [address], [place] [address] 14 Sep, 2011 [facility] [address] [id number] [address] [place] [address], [place] [address] Sep, [facility] [address] [id number] [address] [place] [address], [place] [address] Sep, [facility] [address] [id number] [address] [place] [address], [place] [address] May, [facility] [address] [id number] [address] [place] [address], [place] [address] Nov, [facility] [address] [id number] [address] [place] [address], [place] [address] 29 Oct, 2010 [facility] [address] [id number] [address] [place] [address], [place] [address] 14 Oct, 2010 [facility] [address] [id number] [address] [place] [address], [place] [address] 08 Oct, 2010 [facility] [address] [id number] [address] [place] [address] [address] Sep, [facility] [address] [id number] [address] [place] [address] Sep, [facility] [address] [id number] [address] [place] [address] Aug, [facility] [address] [id number] [address] [place] [address] March, [facility] [address] [id number] [address] [place] [address] Oct, [facility] [address] [id number] [address] [place] [address] Oct, [facility] [address] [id number] [address] [place] [address] Oct, [facility] [address] [id number] [address] [place] [address] Oct, [facility] [address] [id number] [address] [place] [address] Sep, [facility] [address] [id number] [address] [place] [address] Sep, [facility] [address] [id number] [address] [place] [id number] Sep, [facility] [address] [id number] [address] [place] [id number] Aug, [facility] [address] [id number] [address] [place] [id number] Aug, [facility] [address] [id number] [address] [place] [id number] Aug, [facility] [address] [id number] [address] [place] [id number] Jan, IMMUNIZATIONS No Known Immunizations SOCIAL HISTORY Never Assessed REASON FOR VISIT sore on head, right side of crown. Appears to be a mole that patient continues t o scratch and pick at it. [facility] PLAN OF CARE Activity Details Follow Up 4 Weeks Reason:CHM/DM VITAL SIGNS Height 69 in 2018-02-18 Weight 181.9 lbs 2018-02-18 Temperature 97.5 degrees Fahrenheit 2018-02-18 Heart Rate 90 bpm 2018-02-18 Respiratory Rate 20 2018-02-18 BMI 26.86 kg/m2 2018-02-18 Blood pressure systolic 140 mmHg 2018-02-18 Blood pressure diastolic 86 mmHg 2018-02-18 MEDICATIONS Medication Instructions Dosage Frequency Start Date End Date Duration S tatus Levemir FlexTouch 100 UNIT/ML Subcutaneous 2 times a day INJ ECT 50 UNITS SUBCUTANEOUSLY TWICE DAILY (MUST KEEP APPOINTMENT ON 11/08 FOR REFILLS) 12h 12 months Active Lomotil 2.5-0.025 MG Orally Four times a day 1 tablet as needed 6h 24 Feb, 2017 Not-Taking Venlafaxine HCl ER 75 MG TAKE ONE CAPSULE BY MOUTH ONCE KRISTIAN Y WITH FOOD 30 Active Effexor XR 75 mg Orally Once a day take 1 capsule (75 m g) by oral route once daily with food 24h Jan, 90 days Active Lisinopril 10 mg Orally Once a day 1 tablet 24h Jan, 90 days Active Dicyclomine HCl 20 mg Orally 4 times a day TAKE ONE TABLET B Y MOUTH FOUR TIMES DAILY 6h 90 days Active Welchol 625 MG Orally Once a day 1 capsule 24h 21 Apr, 2017 90 days Active Omeprazole 20 mg Orally 2 times a day TAKE ONE CAPSULE BY MOUTH TWI CE DAILY 12h 90 days Active Zyrtec Allergy 10 MG Orally Once a day as directed 24h 12 Dec, 2015 Not-Taking Viberzi 75 MG Orally Twice a day 1 tablet with food 12h 90 days Not-Taking Victoza 18 MG/3ML Subcutaneous Once a day 1.8 mg 24h 9 Feb, 2021 12 months Active Proventil HFA 108 (90 Base) MCG/ACT Inhalation every 4 hrs 2 puffs as needed 4h 13 May, 2015 Active Gabapentin 300 MG Orally Once a day 1 capsule before bedtime 24h Jan, 90 days Active NovoLog Flexpen 100 UNIT/ML Subcutaneous 3 times a day wit meals 10 units Jan, 12 months Active Oxybutynin Chloride 5 mg Orally Twice a day 1 tablet 12h 90 days Active MetFORMIN HCl ER 500 mg Orally twice a day 2 tablets 12h 90 days Active Levothyroxine Sodium 75 mcg Orally Once a day on an em pty stomach with a full glass of water 1 tablet Active RESULTS No Results PROCEDURES No Known [...]
--- OUTSIDE RECORDS SUMMARY | 2020-06-13 16:30 | XMS REPORT ---
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 Name Role Phone PARKERPATRICIA Mckeon Unavailable PROBLEMS Type Condition ICD9-CM Code [id number] Code Onset Dates Condition S tatus SNOMED Code Problem Gastroesophageal reflux disease with esophagitis K 21.0 Active 347162889 Problem assisted current use of insulin Z79.4 Active 594847264 Problem Irritable bowel syndrome with diarrhea K58.0 Active 980293964 Problem Chronic fatigue R53.82 Active 8422 9001 Problem Recurrent major depressive disorder, in partial remission F33.41 Active 79384600 Problem Essential (primary) hypertension I10 Active 23876813 Problem Type 2 diabetes mellitus with hyperglycemia E11.65 Active 36719827 Problem Current non-adherence to medical treatment Z91.19 Active 6649702 Problem Pulmonary emphysema, unspecified emphysema type J4 3.9 Active 24434137 Problem Neuropathy G62.9 Active 131311922 Problem Hypothyroid E03.9 Active 66350303 Problem Thrombocytosis D47.3 Active 61184 09 Problem Overactive bladder N32.81 Active 2 37616554 Problem Chronic pain G89.29 Active 1391491 1 Problem Mixed hyperlipidemia E78.2 Active [id number] ALLERGIES No Information ENCOUNTERS Encounter Location Date Diagnosis [facility], [place] [address] [facility] [id number] [address] [place] [address] Jun, [facility] [place] [address] [facility] [id number] [address] [place] [address] Jun, [facility] [place] [address] [facility] [id number] [address] [place] [address] May, [facility] [place] [address] [facility] [id number] [address] [place] [address] May, Generalized abdominal pain R 10.84 and Candidal dermatitis B37.2 [facility] [place] [address] [id number] [address] [place] [address] May, [facility] [place] [address] [id number] [address] [place] [address] May, [facility] [place] [address] [facility] [id number] [address] [place] [address] May, Nodular radiologic density R 93.8 ; Weight loss, unintentional R63.4 and Pulmonary emphysema, unspecified emphysema type J43.9 [facility] [place] [address] [facility] [id number] [address] [place] [address] May, Chronic pain G89.29 [place] [address] [facility] [id number] [address] [place] [address] May, Syncope and collapse R55 ; C hronic fatigue R53.[address] lung screening R91.8 [place] [address] [facility] [id number] [address] [place] [address] May, [facility] [place] [address] [facility] [id number] [address] [place] [address] Apr, Chronic fatigue R53.82 ; Abn ormal chest CT R93.8 ; Elevated erythrocyte sedimentation rate R70.0 ; Hypothyroid E03.9 and Recurrent major depressive disorder, in partial remission F33.41 [place] [address] [facility] [id number] [address] [place] [address] Apr, Hypothyroid E03.9 [facility] [place] [address] [id number] [address] [place] [address] Apr, Depression F32.9 [place] [address] [facility] [id number] [address] [place] [address] Apr, [facility] [place] [address] [facility] [id number] [address] [place] [address] March, [place] [address] [facility] [id number] [address] [place] [address] March, Hypothyroid E03.9 [facility] [place] [address] [facility] [id number] [address] [place] [address] March, Diabetes mellitus E11.9 and Hypothyroid E03.9 [facility] [place] [address] [facility] [id number] [address] [place] [address] March, Diabetes mellitus E11.9 [place] [address] [facility] [id number] [address] [place] [address] March, Hypothyroid E03.9 and Elevat ed liver enzymes R74.8 [place] [address] [facility] [id number] [address] [place] [address] March, Type 2 diabetes mellitus wit h [...] major depressive disorder, in partial remission F33.41 [place] [address] [facility] [id number] [address] [place] [address] Feb, Chronic pain G89.29 [place] [address] [facility] [id number] [address] [place] [address] Feb, Type 2 diabetes mellitus wit h hyperglycemia E11.65 and Skin lesion of scalp L98.9 [place] [address] [facility] [id number] [address] [place] [address] Feb, [place] [address] [facility] [id number] [address] [place] [address] Jan, Type 2 diabetes mellitus wit h [...] and Irritable bowel syndrome with diarrhea K58.0 [place] [address] [id number] [address] [place] [address] Jan, [place] [address] [id number] [address] [place] [address] Jan, Controlled substance agreeme nt signed Z79.899 [place] [address] [id number] [address] [place] [address] Dec, Type 2 diabetes mellitus wit h hyperglycemia E11.65 ; Controlled substance agreement signed Z79.899 ; assisted current use of insulin Z79.4 ; Essential (primary) hypertension I10 ; Hypothyroid E03.9 ; Neuropathy G62.9 ; Depression F32.9 ; Mixed hyperlipidemia E78.2 ; Irritable bowel syndrome with diarrhea K58.0 ; Gastroesophageal reflux disease with esophagitis K21.0 ; Thrombocytosis D47.3 ; Current non-adherence to medical treatment Z91.19 and Overweight (BMI 25.0-29.9) E66.3 [place] [address] [id number] [address] [place] [address] 02 Dec, 2017 Controlled substance agreeme nt signed Z79.899 [place] [address] [facility] [id number] [address] [place] [address] Nov, Type 2 diabetes mellitus wit h hyperglycemia E11.65 and Current non- adherence to medical treatment Z91.19 [place] [address] [id number] [address] [place] [address] Nov, [place] [address] [id number] [address] [place] [address] Nov, Chronic pain G89.29 [place] [address] [id number] [address] [place] [address] Nov, [place] [address] [facility] [id number] [address] [place] [address] Nov, Hypothyroid E03.9 [facility] [place] [address] [id number] [address] [place] [address] Nov, Hypothyroid E03.9 [facility] [place] [address] [facility] [id number] [address] [place] [address] Nov, Pulmonary emphysema, unspeci fied emphysema type J43.9 and Irritable bowel syndrome with diarrhea K58.0 [facility] [place] [address] [facility] [id number] [address] [place] [address] Oct, [facility] [place] [address] [facility] [id number] [address] [place] [address] Oct, [place] [address] [facility] [id number] [address] [place] [address] Oct, [facility] [place] [address] [facility] [id number] [address] [place] [address] Oct, [facility] [place] [address] [facility] [id number] [address] [place] [address] Oct, Chronic pain G89.29 [place] [address] [facility] [id number] [address] [place] [address] Oct, Diabetes mellitus E11.9 ; De pression F32.9 ; Mixed hyperlipidemia E78.2 ; Hypotension, unspecified hypotension type I95.9 ; Pulmonary emphysema, unspecified emphysema type J43.9 and Weight loss, unintentional R63.4 [facility] [place] [address] [facility] [id number] [address] [place] [address] Oct, Chronic pain G89.29 [facility] [place] [address] [facility] [id number] [address] [place] [address] Sep, Chronic pain G89.29 [place] [address] [facility] [id number] [address] [place] [address] Sep, Hypothyroid E03.9 and Diabet es mellitus E11.9 [facility] [place] [address] [facility] [id number] [address] [place] [address] Aug, Type 2 diabetes mellitus wit h hyperglycemia E11.65 ; emt 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 current use of insulin Z79.4 ; Essential (primary) hypertension I10 ; Hypothyroid E03.9 ; Neuropathy G62.9 ; Chronic pain G89.29 ; Mixed hy perlipidemia E78.2 and Encounter for immunization Z23 [facility] [place] [address] [facility] [id number] [address] [place] [address] Aug, Chronic pain G89.29 [facility] [place] [address] [facility] [id number] [address] [place] [address] Aug, Overactive bladder N32.81 ; Diabetes mellitus E11.9 and Chronic pain G89.29 [facility], [place] [address] [place] [id number] [address] [place] [address] Jul, [facility], [place] [address] [place] [id number] [address] [place] [address] Jun, [facility], [place] [address] [place] [id number] [address] [place] [address] Jun, [facility] [place] [address] [place] [id number] [address] [place] [address] Jun, Hypothyroid E03.9 [place] [address] [place] [id number] [address] [place] [address] Jun, Diabetes mellitus E11.9 ; Hy pothyroid E03.9 ; Neuropathy G62.9 ; Chronic pain G89.29 and Neck mass R22.1 [facility] [place] [address] [facility] [id number] [address] [place] [address] Apr, [facility] [place] [address] [place] [id number] [address] [place] [address] Apr, Acute cystitis without hemat uria N30.00 [facility] [place] [address] [facility] [id number] [address] [place] [address] March, [facility] [place] [address] [place] [id number] [address] [place] [address] March, [facility], [place] [id number] [place] [address] 15 Mar, 2017 Near syncope R55 [facility], [place] [address] [place] [id number] [address] [place] [address] Feb, [facility], [place] [address] [facility] [id number] [address] [place] [address] Feb, Chronic pain G89.29 [facility] [place] [address] [place] [id number] [address] [place] [address] Feb, [facility], [place] [address] [place] [id number] [address] [place] [address] Feb, [facility], [place] [address] [place] [id number] [address] [place] [address] Jan, Chronic pain G89.29 [facility] [place] [address] [place] [id number] [address] [place] [address] Jan, [facility], [place] [address] [place] [id number] [address] [place] [address] Jan, [facility] [place] [address] [place] [id number] [address] [place] [address] Jan, Diabetes mellitus E11.9 ; Hy pothyroid E03.9 ; GERD (gastroesophageal reflux disease) K21.9 ; Insomnia G47.00 ; Functional diarrhea K59.1 ; Neuropathy G62.9 ; Depression F32.9 ; Chronic pain G89.29 ; Irritable bowel syndrome with diarrhea K58.0 ; Overactive bladder N32.81 ; Mixed hyperlipidemia E78.2 and Bronchitis J40 [facility], [place] [address] [place] [address] Dec, [facility], [place] [address] [place] [id number] [address] [place] [address] Dec, [facility] [place] [address] [place] [id number] [address] [place] [address] Dec, [facility], [place] [address] [place] [id number] [address] [place] [address] Dec, [facility] [place] [address] [facility] [id number] [address] [place] [address] Dec, Chronic pain G89.29 [facility] [place] [address] [facility] [id number] [address] [place] [address] Dec, [facility], [place] [address] [place] [id number] [address] [place] [address] Dec, [facility], [place] [address] [place] [id number] [address] [place] [address] Dec, Type 2 diabetes mellitus wit h foot ulcer E11.621 [place] [address] [place] [id number] [address] [place] [address] 17 Dec, 2016 Type 2 diabetes mellitus wit h foot ulcer E11.621 [place] [address] [place] [id number] [address] [place] [address] 14 Dec, 2016 HTN (hypertension) I10 ; Dep ression F32.9 ; Type 2 diabetes mellitus with foot ulcer E11.621 ; Functional diarrhea K59.1 ; Irritable bowel syndrome with diarrhea K58.0 ; Chronic pain G89.29 ; Insomnia G47.00 ; Overactive bladder N32.81 ; Mixed hyperlipidemia E78.2 ; Gastroesophageal reflux disease with esophagitis K21.0 and Acquired hypothyroidism E03.9 [place] [address] [place] [address] Nov, [facility], [place] [address] [place] [address] Oct, [facility], [place] [address] [place] [id number] [address] [place] [address] Oct, [place] [address] [place] [id number] [address] [place] [address] Oct, [facility] [place] [address] [place] [id number] [address] [place] [address] Sep, Functional diarrhea K59.1 ; HTN (hypertension) I10 ; Diabetes mellitus E11.9 ; Depression F32.9 ; Overactive bladder N32.81 ; Mixed hyperlipidemia E78.2 ; Gastroesophageal reflux disease without esophagitis K21.9 ; Chronic pain G89.29 ; Insomnia G47.00 and Acquired hypothyroidism E03.9 [place] [address] [address] Sep, [place] [address] [address] Aug, Encounter for immunization Z 23 [place] [address] [address] Aug, [place] [address] [address] Jul, [place] [address] [address] Jun, Type 2 diabetes mellitus wit hout complications E11.9 ; HTN (hypertension) I10 ; Hypothyroid E03.9 ; Neuropathy G62.9 ; Depression F32.9 ; Chronic pain G89.29 ; GERD (gastroesophageal reflux disease) K21.9 ; Insomnia G47.00 ; Overactive bladder N32.81 ; Mixed hyperlipidemia E78.2 ; Diarrhea of infectious origin A09 and Environmental allergies Z91.09 [place] [address] [address] Apr, [place] [address] [place] [id number] [place] [address] March, Hypothyroidism, unspecified E03.9 and Mixed hyperlipidemia E78.2 [place] [address] [address] March, Diabetes mellitus E11.9 ; HT N (hypertension) I10 ; Hypothyroid E03.9 ; Depression F32.9 ; Overactive bladder N32.81 ; Other chronic pain G89.29 ; Lumbago with sciatica, unspecified side M54.40 ; Environmental allergies Z91.09 and Gastroesophageal reflux disease, esophagitis presence not specified K21.9 [place] [address] [address] March, [place] [address] [address] Jan, HTN (hypertension) I10 ; Hyp othyroid E03.9 ; Neuropathy G62.9 ; Diabetes mellitus E11.9 ; Chronic pain G89.29 ; GERD (gastroesophageal reflux disease) K21.9 ; Overactive bladder N32.81 and Depression F32.9 [place] [address] [address] 12 Dec, 2015 Ear pain, left H92.02 ; HTN (hypertension) I10 ; Hypothyroid E03.9 ; Neuropathy G62.9 ; Diabetes mellitus E11.9 ; Depression F32.9 ; GERD (gastroesophageal reflux disease) K21.9 ; Insomnia G47.00 and Overactive bladder N32.81 [place] [address] [address] Nov, Overactive bladder N32.81 an d Chronic pain G89.29 [place] [address] [address] Nov, Kidney failure N19 [place] [address] [address] Nov, [place] [address] [address] Nov, [place] [address] [address] Nov, Diabetes mellitus E11.9 ; De pression F32.9 ; Chronic pain G89.29 ; GERD (gastroesophageal reflux disease) K21.9 ; Insomnia G47.00 ; HTN (hypertension) I10 ; Hypothyroid E03.9 ; COPD (chronic obstructive pulmonary disease) J44.9 ; Bladder incontinence R32 and Incontinence R32 [place] [address] [address] Sep, Type 2 diabetes mellitus wit h foot ulcer E11.621 and Chromosomal abnormality, 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 [place] [address] [address] Sep, [place] [address] [address] Aug, [address] [address] Aug, [place] [address] [address] Aug, HTN (hypertension) I10 ; Enc ounter for immunization Z23 ; Hypothyroid E03.9 ; Neuropathy G62.9 ; Diabetes mellitus E11.9 ; Depression F32.9 ; Chronic pain G89.29 ; GERD (gastroesophageal reflux disease) K21.9 ; Insomnia G47.00 and COPD (chronic obstructive pulmonary disease) J44.[address] [address] Jun, [address] [address] Jun, [address] [address] May, Essential hypertension, ivis gn 401.1 ; Unspecified hypothyroidism 244.9 ; Insomnia, unspecified 780.52 ; Shortness of breath 786.05 ; Depression 311 ; COPD (chronic obstructive pulmonary disease) 496 ; GERD (gastroesophageal reflux disease) 530.81 and Diabetes 1.5, 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 [address] May, [address] [address] May, [address] [address] May, Shortness of breath 786.05 ; Essential hypertension, benign 401.1 ; Diabetes mellitus 250.00 ; Hyperlipidemia 272.4 ; Hypothyroid 244.9 ; Insomnia 780.52 and Cough 786.2 [facility] [place] [address] [id number] [address] [place] [address] Apr, [facility] [place] [address] [facility] [id number] [address] [place] [address] March, Shortness of breath 786.05 ; Nausea with vomiting 787.01 ; Essential hypertension, benign 401.1 ; Diabetes mellitus 250.00 ; Hyperlipidemia 272.4 and Hypothyroid 244.9 [facility] [place] [address] [id number] [address] [place] [address] Feb, [facility] [place] [address] [id number] [address] [place] [address] Feb, [facility] [place] [address] [facility] [id number] [address] [place] [address] Jan, [facility] [place] [address] [id number] [address] [place] [address] Jan, [facility] [place] [address] [facility] [id number] [address] [place] [address] Jan, [facility] [place] [address] [facility] [id number] [address] [place] [address] Jan, [facility] [place] [address] [facility] [id number] [address] [place] [address] Jan, [facility] [place] [address] [id number] [address] [place] [address] Jan, [facility] [place] [address] [id number] [address] [place] [address] Jan, [facility] [place] [address] [facility] [id number] [address] [place] [address] Jan, [facility] [place] [address] [facility] [id number] [address] [place] [address] Jan, [facility] [address] [id number] [address] [place] [address], [place] [address] Jan, [facility] [address] [id number] [address] [place] [address], [place] [address] Dec, 2014 [facility] [address] [id number] [address] [place] [address], [place] [address] Dec, 2014 [facility] [address] [id number] [address] [place] [address], [place] [address] Dec, 2014 [facility] [address] [id number] [address] [place] [address], [place] [address] Dec, 2014 [facility] [address] [id number] [address] [place] [address], [place] [address] Dec, 2014 [facility] [address] [id number] [address] [place] [address], [place] [address] Dec, 2014 [facility] [address] [id number] [address] [place] [address], [place] [address] Dec, 2014 [facility] [address] [id number] [address] [place] [address], [place] [address] Dec, 2014 [facility] [address] [id number] [address] [place] [address], [place] [address] Dec, 2014 [facility] [address] [id number] [address] [place] [address], [place] [address] Dec, 2014 [facility] [address] [id number] [address] [place] [address], [place] [address] Oct, [facility] [address] [id number] [address] [place] [address], [place] [address] Oct, [facility] [address] [id number] [address] [place] [address], [place] [address] Oct, [facility] [address] [id number] [address] [place] [address], [place] [address] Oct, [facility] [address] [id number] [address] [place] [address], [place] [address] 08 Oct, 2014 [facility] [address] [id number] [address] [place] [address], [place] [id number] 08 Oct, 2014 [facility] [address] [id number] [address] [place] [address], [place] [address] Oct, [facility] [address] [id number] [address] [place] [address], [place] [id number] 05 Oct, 2014 [facility] [address] [id number] [address] [place] [address], [place] [address] Oct, [facility] [address] [id number] [address] [place] [address], [place] [address] Oct, [facility] [address] [id number] [address] [place] [address], [place] [address] Oct, [facility] [address] [id number] [address] [place] [address], [place] [address] Oct, [facility] [address] [id number] [address] [place] [address], [place] [address] Oct, [facility] [address] [id number] [address] [place] [address], [place] [id number] Oct, [facility] [address] [id number] [address] [place] [address], [place] [address] Sep, [facility] [address] [id number] [address] [place] [address], [place] [address] Sep, [facility] [address] [id number] [address] [place] [address], [place] [address] Sep, [facility] [address] [id number] [address] [place] [address], [place] [address] Sep, [facility] [address] [id number] [address] [place] [address], [place] [address] Sep, [facility] [address] [id number] [address] [place] [address], [place] [address] Sep, [facility] [address] [id number] [address] [place] [address], [place] [address] Sep, [facility] [address] [id number] [address] [place] [address], [place] [address] Sep, [facility] [address] [id number] [address] [place] [address], [place] [address] Sep, [facility] [address] [id number] [address] [place] [address], [place] [address] Aug, [facility] [address] [id number] [address] [place] [address], [place] [address] Aug, [facility] [address] [id number] [address] [place] [address], [place] [address] Aug, [facility] [address] [id number] [address] [place] [address], [place] [address] Aug, [facility] [address] [id number] [address] [place] [address], [place] [address] Aug, [facility] [address] [id number] [address] [place] [address], [place] [address] Aug, [facility] [address] [id number] [address] [place] [address], [place] [address] Aug, [facility] [address] [id number] [address] [place] [address], [place] [address] Aug, [facility] [address] [id number] [address] [place] [address], [place] [address] Aug, [facility] [address] [id number] [address] [place] [address], [place] [address] Jul, [facility] [address] [id number] [address] [place] [address], [place] [address] 29 Jul, 2014 [facility] [address] [id number] [address] [place] [address], [place] [address] 25 Jul, 2014 [facility] [address] [id number] [address] [place] [address], [place] [address] Jul, [facility] [address] [id number] [facility] [place] [address] Jul, [facility] [address] [id number] [address] [place] [address], [place] [address] Jul, [facility] [address] [id number] [address] [place] [address], [place] [address] Jul, [facility] [address] [id number] [address] [place] [address], [place] [address] Jul, [facility] [address] [id number] [address] [place] [address], [place] [address] Jul, [facility] [address] [id number] [address] [place] [address], [place] [address] Jul, [facility] [address] [id number] [address] [place] [address], [place] [address] Jun, [facility] [address] [id number] [address] [place] [address], [place] [address] Jun, [facility] [address] [id number] [address] [place] [address], [place] [address] Jun, [facility] [address] [id number] [address] [place] [address], [place] [address] Jun, [facility] [address] [id number] [address] [place] [address], [place] [address] Jun, [facility] [address] [id number] [address] [place] [address], [place] [address] Jun, [facility] [address] [id number] [address] [place] [address], [place] [address] Jun, [facility] [address] [id number] [address] [place] [address], [place] [address] Jun, [facility] [address] [id number] [address] [place] [address], [place] [address] Jun, [facility] [address] [id number] [facility] [place] [address] Jun, [facility] [address] [id number] [address] [place] [address], [place] [address] Jun, [facility] [address] [id number] [address] [place] [address], [place] [address] Jun, [facility] [address] [id number] [address] [place] [address], [place] [address] May, [facility] [address] [id number] [address] [place] [address], [place] [address] May, [facility] [address] [id number] [address] [place] [address], [place] [address] May, [facility] [address] [id number] [address] [place] [address], [place] [address] May, [facility] [address] [id number] [address] [place] [address], [place] [address] May, [facility] [place] [address] [id number] [address] [place] [address], [place] [address] May, [facility] [address] [id number] [address] [place] [address], [place] [address] March, [facility] [address] [id number] [address] [place] [address], [place] [address] March, [facility] [address] [id number] [address] [place] [address], [place] [address] March, [facility] [address] [id number] [address] [place] [address], [place] [address] March, [facility] [address] [id number] [address] [place] [address], [place] [address] March, [facility] [address] [id number] [address] [place] [address], [place] [address] March, [facility] [address] [id number] [address] [place] [address], [place] [address] Feb, [facility] [address] [id number] [facility] [place] [address] Feb, [facility] [address] [id number] [address] [place] [address], [place] [address] Feb, [facility] [address] [id number] [address] [place] [address], [place] [address] Feb, [facility] [address] [id number] [address] [place] [address], [place] [address] Jan, [facility] [address] [id number] [address] [place] [address], [place] [address] Jan, [facility] [address] [id number] [address] [place] [address], [place] [address] Jan, [facility] [address] [id number] [address] [place] [address], [place] [address] Jan, [facility] [address] [id number] [address] [place] [address], [place] [address] Jan, [facility] [address] [id number] [address] [place] [address], [place] [address] Jan, [facility] [address] [id number] [address] [place] [address], [place] [address] Jan, [facility] [address] [id number] [address] [place] [address], [place] [address] Jan, [facility] [address] [id number] [address] [place] [address], [place] [address] Jan, [facility] [address] [id number] [address] [place] [address], [place] [address] Jan, [facility] [address] [id number] [address] [place] [address], [place] [address] Jan, [facility] [address] [id number] [address] [place] [address], [place] [address] Jan, [facility] [address] [id number] [address] [place] [address], [place] [address] Dec, [facility] [place] [address] [id number] [address] [place] [address], [place] [address] Dec, [facility] [address] [id number] [address] [place] [address], [place] [address] Dec, [facility] [address] [id number] [address] [place] [address], [place] [address] Dec, [facility] [address] [id number] [address] [place] [address], [place] [address] Dec, [facility] [address] [id number] [address] [place] [address], [place] [address] Dec, [facility] [address] [id number] [address] [place] [address], [place] [address] Nov, [facility] [place] [address] [id number] [address] [place] [address], [place] [address] Nov, [facility] [place] [address] [id number] [address] [place] [address], [place] [address] Oct, [facility] [address] [id number] [address] [place] [address], [place] [address] Oct, [facility] [address] [id number] [address] [place] [address], [place] [address] Oct, [facility] [address] [id number] [address] [place] [address], [place] [address] Oct, [facility] [address] [id number] [address] [place] [address], [place] [address] Oct, [facility] [address] [id number] [address] [place] [address], [place] [address] Oct, [facility] [address] [id number] [address] [place] [address], [place] [address] Sep, [facility] [address] [id number] [address] [place] [address], [place] [address] Sep, [facility] [address] [id number] [address] [place] [address], [place] [address] Sep, [facility] [address] [id number] [address] [place] [address], [place] [address] Sep, [facility] [address] [id number] [address] [place] [address], [place] [address] Aug, [facility] [address] [id number] [address] [place] [address], [place] [address] Aug, [facility] [address] [id number] [address] [place] [address], [place] [address] Aug, [facility] [address] [id number] [address] [place] [address], [place] [address] 17 Jul, 2013 [facility] [address] [id number] [address] [place] [address], [place] [address] 14 Jul, 2013 [facility] [address] [id number] [address] [place] [address], [place] [address] Jul, [facility] [address] [id number] [address] [place] [address], [place] [address] Jun, [facility] [address] [id number] [address] [place] [address], [place] [address] Jun, [facility] [address] [id number] [address] [place] [address], [place] [address] Jun, [facility] [address] [id number] [address] [place] [address] Apr, [facility] [address] [id number] [address] [place] [address], [place] [address] Apr, [facility] [address] [id number] [address] [place] [address], [place] [address] March, [facility] [address] [id number] [address] [place] [address], [place] [address] March, [facility] [address] [id number] [address] [place] [address], [place] [address] March, [facility] [place] [address] [id number] [address] [place] [address], [place] [address] March, [facility] [address] [id number] [address] [place] [address], [place] [address] Feb, [facility] [address] [id number] [address] [place] [address], [place] [address] Jan, [facility] [address] [id number] [address] [place] [address], [place] [address] Dec, [facility] [address] [id number] [address] [place] [address], [place] [address] Dec, [facility] [address] [id number] [address] [place] [address], [place] [address] Dec, [facility] [place] [address] [id number] [address] [place] [address], [place] [address] Nov, [facility] [address] [id number] [address] [place] [address], [place] [address] Oct, [facility] [place] [address] [id number] [address] [place] [address], [place] [address] Oct, [facility] [address] [id number] [address] [place] [address], [place] [address] Sep, [facility] [address] [id number] [address] [place] [address], [place] [address] Sep, [facility] [address] [id number] [address] [place] [address], [place] [address] Sep, [facility] [address] [id number] [address] [place] [address], [place] [address] Sep, [facility] [address] [id number] [address] [place] [address], [place] [address] Sep, [facility] [address] [id number] [address] [place] [address], [place] [address] Sep, [facility] [address] [id number] [address] [place] [address], [place] [address] Sep, [facility] [address] [id number] [address] [place] [address], [place] [address] Aug, [facility] [address] [id number] [address] [place] [address], [place] [address] 16 Aug, 2012 [facility] [address] [id number] [address] [place] [address], [place] [address] Aug, [facility] [address] [id number] [address] [place] [address], [place] [address] Aug, [facility] [address] [id number] [address] [place] [address], [place] [address] Aug, [facility] [address] [id number] [address] [place] [address], [place] [address] Aug, [facility] [address] [id number] [address] [place] [address], [place] [address] Aug, [facility] [address] [id number] [address] [place] [address], [place] [address] Aug, [facility] [address] [id number] [address] [place] [address], [place] [address] Jul, [facility] [address] [id number] [address] [place] [address], [place] [address] Jul, [facility] [address] [id number] [address] [place] [address], [place] [address] Jun, [facility] [address] [id number] [address] [place] [address], [place] [address] May, [facility] [address] [id number] [address] [place] [address], [place] [address] Apr, [facility] [address] [id number] [address] [place] [address], [place] [address] Apr, [facility] [address] [id number] [address] [place] [address], [place] [address] Apr, [facility] [address] [id number] [address] [place] [address], [place] [address] March, [facility] [address] [id number] [address] [place] [address], [place] [address] March, [facility] [address] [id number] [address] [place] [address], [place] [address] March, [facility] [address] [id number] [address] [place] [address], [place] [address] March, [facility] [address] [id number] [address] [place] [address], [place] [address] March, [facility] [address] [id number] [address] [place] [address], [place] [address] March, [facility] [address] [id number] [address] [place] [address], [place] [address] March, [facility] [address] [id number] [address] [place] [address], [place] [address] Jan, [facility] [address] [id number] [address] [place] [address], [place] [address] Jan, [facility] [address] [id number] [address] [place] [address], [place] [address] Jan, [facility] [address] [id number] [address] [place] [address], [place] [address] Jan, [facility] [address] [id number] [address] [place] [address], [place] [address] Jan, [facility] [address] [id number] [address] [place] [address], [place] [address] Dec, [facility] [address] [id number] [address] [place] [address], [place] [address] Dec, [facility] [address] [id number] [address] [place] [address], [place] [address] Nov, [facility] [address] [id number] [address] [place] [address], [place] [address] 10 Nov, 2011 [facility] [place] [address] [id number] [address] [place] [address], [place] [address] Nov, [facility] [place] [address] [id number] [address] [place] [address], [place] [address] Nov, [facility] [address] [id number] [address] [place] [address], [place] [address] Oct, [facility] [place] [address] [id number] [address] [place] [address], [place] [address] Oct, [facility] [place] [address] [id number] [address] [place] [address], [place] [address] 14 Sep, 2011 [facility] [address] [id number] [address] [place] [address], [place] [address] Sep, [facility] [address] [id number] [address] [place] [address], [place] [address] Sep, [facility] [address] [id number] [address] [place] [address], [place] [address] May, [facility] [address] [id number] [address] [place] [address], [place] [address] Nov, [facility] [address] [id number] [address] [place] [address], [place] [address] 29 Oct, 2010 [facility] [address] [id number] [address] [place] [address], [place] [address] 14 Oct, 2010 [facility] [address] [id number] [address] [place] [address], [place] [address] 08 Oct, 2010 [facility] [address] [id number] [address] [place] [address], [place] [address] 15 Sep, 2010 [facility] [address] [id number] [address] [place] [address], [place] [address] 02 Sep, 2010 [facility] [address] [id number] [address] [place] [address], [place] [address] Aug, [facility] [place] [address] [id number] [address] [place] [address] March, [facility] [place] [address] [id number] [address] [place] [id number] Oct, [facility] [place] [address] [id number] [address] [place] [address] Oct, [facility], [place] [address] [id number] [address] [place] [phone] Oct, [facility], [place] [address] [id number] [address] [place] [phone] Oct, [facility], [place] [address] [id number] [address] [place] [phone] Sep, [facility], [place] [address] [id number] [address] [place] [phone] Sep, [facility], [place] [address] [id number] [address] [place] [phone] Sep, [facility], [place] [address] [id number] [address] [place] [phone] Aug, [facility], [place] [address] [id number] [address] [place] [phone] Aug, [facility], [place] [address] [id number] [address] [place] [phone] Aug, [facility], [place] [address] [id number] [address] [place] [phone] Jan, IMMUNIZATIONS No Known Immunizations SOCIAL HISTORY Never Assessed REASON FOR VISIT Request samples PLAN OF CARE VITAL SIGNS MEDICATIONS Unknown [...]
--- OUTSIDE RECORDS SUMMARY | 2020-06-13 16:31 | XMS REPORT ---
Author Author Jah GIBBS Organization [facility] Address [address] [place] [address] Care Team Providers Care School Curriculum Developer Name Role Phone SILVERIO GIBBSNETTE Unavailable PROBLEMS Type Condition ICD9-CM Code [id number] Code Onset Dates Condition S tatus SNOMED Code Problem Functional diarrhea K59.1 Active 93534491 Problem Gastroesophageal reflux disease with esophagitis K 21.0 Active 426761218 Problem Gastroesophageal reflux disease without esophagitis K21.9 Active 766517933 Problem Essential (primary) hypertension I10 Active 43295567 Problem Type 2 diabetes mellitus with hyperglycemia E11.65 Active 41858465 Problem Diabetes mellitus E11.9 Active 73 407097 Problem Irritable bowel syndrome with diarrhea K58.0 Active 170752285 Problem Type 2 diabetes mellitus without complications E11 .9 Active 538685118 Problem jail current use of insulin Z79.4 Active 011999068 Problem Insomnia G47.00 Active 468463899 Problem HTN (hypertension) I10 Active 3 4119113 Problem Hypothyroid E03.9 Active 09954331 Problem Chronic pain G89.29 Active 9743709 1 Problem Neuropathy G62.9 Active 986252033 Problem Depression F32.9 Active 79202724 Problem Overactive bladder N32.81 Active 2 13589978 Problem GERD (gastroesophageal reflux disease) K21.9 Active 322723596 Problem Mixed hyperlipidemia E78.2 Active 365053897 ALLERGIES Substance Reaction Event Type Date Status Trilipix nausea Drug Allergy Apr, Active Niacin rash Drug Allergy Apr, Active Metformin HCl diarrhea Drug Allergy Apr, Active Januvia diarrhea Drug Allergy Apr, Active Gemfibrozil diarrhea Drug Allergy Apr, Active Actos diarrhea Drug Allergy Apr, Active SOCIAL HISTORY Never Assessed PLAN OF CARE Activity Details Follow Up 2 Weeks Reason:uti VITAL SIGNS Height 69 in 2017-04-12 Weight 179.5 lbs 2017-04-12 Temperature 97.7 degrees Fahrenheit 2017-04-12 Heart Rate 80 bpm 2017-04-12 Respiratory Rate 18 2017-04-12 BMI 26.50 kg/m2 2017-04-12 Blood pressure systolic 130 mmHg 2017-04-12 Blood pressure diastolic 80 mmHg 2017-04-12 MEDICATIONS Medication Instructions Dosage Frequency Start Date End Date Duration S gato Levemir FlexTouch 100 unit/mL (3 mL) Subcutaneous 2 times a day 120units bid 12h Jan, Active Levothyroxine Sodium 125 MCG TAKE ONE TABLET BY MOUTH DAILY Active Dicyclomine HCl 20 MG TAKE ONE TABLET BY MOUTH FOUR TIMES DAILY NEEDED Active Oxybutynin Chloride 5 mg Orally Twice a day 1 tablet 12h Active NovoLog Flexpen 100 UNIT/ML Subcutaneous 3 times a day wit meals 20 units Jan, Active Lomotil 2.5-0.025 MG Orally Four times a day 1 tablet as needed 6h Feb, Active Cipro 500 mg Orally Twice a day 1 tablet 12h Apr,2016 10 day(s) Active MetFORMIN HCl ER 500 MG Orally 2 times a day with meals 1 tablet Active Omeprazole 20 MG TAKE ONE CAPSULE BY MOUTH TWICE DAILY 30 Active Cyclobenzaprine HCl 10 mg Orally Three times a day 1 tablet 8h 12 M 2015 Active Pyridium 200 mg Orally Three times a day 1 tablet after meals 8h Apr, Apr, 03 days Active Trilipix 135 MG Orally Once a day 1 capsule 24h March, Active Effexor XR 75 MG Orally Once a day take 1 capsule (75 m g) by oral route once daily with food 24h Jan, Active Tramadol HCl 50 mg Orally 4 times a day TAKE ONE TABLET BY MOUTH EVERY 4 HOURS NEEDED 6h 28 days Active Proventil HFA 108 (90 Base) MCG/ACT Inhalation every 4 hrs 2 puffs as needed 4h May, Active Levemir FlexTouch 100 UNIT/ML INJECT 120 UNITS SUBCUTANEOUSLY TWICE DAILY (MUST KEEP APPOINTMENT ON 11/08 FOR REFILLS) 18 Active RESULTS Name Result Date Reference Range UA LONG DIP (IN HOUSE) 2017-04-12 Lot # [id number] Exp date 01/2018 Clarity CLEAR Color YELLOW Odor NO GLU 2+ DUANE NEG KET NEG SG 1.015 BLO 1+ pH 5.0 Protein TRACE URO 0.2 NIT NEG DHARA TRACE Lot # Exp date PROCEDURES Procedure Date Ordered Result Body Site URINALYSIS, AUTO, W/O SCOPE April 12, 2017 IMMUNIZATIONS No Known Immunizations MEDICAL (GENERAL) HISTORY Type Description Date Medical History hypertension Medical History hyperlipidemia Medical History obesity Medical History type II diabetes Medical History fatty liver Medical History irritable bowel syndrome Medical History insomnia Medical History peripheral neuropathy Medical History chronic diarrhea Surgical History cholecystectomy (Emergent) 10/2014 Surgical History ENT surgery Surgical History hemorrhoidectomy Surgical History orthopedic surgery-L wrist as a child Surgical History left knee arthroscopy-torn cartilage Surgical History colonscopy-2013 normal Surgical History tube in left ear 05/2016 Hospitalization History surgeries
--- OUTSIDE RECORDS SUMMARY | 2020-06-13 16:31 | XMS REPORT ---
Author Author Jah GIBBS Organization [facility] Address [address] [place] [address] Care Team Providers Care Financial Services Manager Name Role Phone GIBBS CHLOE Unavailable PROBLEMS Type Condition ICD9-CM Code [id number] Code Onset Dates Condition S tatus SNOMED Code Problem Overactive bladder N32.81 Active 2 73832277 Problem Gastroesophageal reflux disease without esophagitis K21.9 Active 039536687 Problem Mixed hyperlipidemia E78.2 Active 007258458 Problem Type 2 diabetes mellitus without complications E11 .9 Active 492967550 Problem [facility] current use of insulin Z79.4 Active 501112711 Problem Irritable bowel syndrome with diarrhea K58.0 Active 683153939 Problem Functional diarrhea K59.1 Active 98917071 Problem Diabetes mellitus E11.9 Active 73 410401 Problem Gastroesophageal reflux disease with esophagitis K 21.0 Active 754694272 Problem Chronic pain G89.29 Active 7977181 1 Problem Insomnia G47.00 Active 779156445 Problem HTN (hypertension) I10 Active 3 1083587 Problem Neuropathy G62.9 Active 541051481 Problem Depression F32.9 Active 56901026 Problem Hypothyroid E03.9 Active 23649460 Problem GERD (gastroesophageal reflux disease) K21.9 Active 207972966 ALLERGIES No Information SOCIAL HISTORY Never Assessed PLAN OF CARE VITAL SIGNS MEDICATIONS Unknown Medications RESULTS No Results PROCEDURES No Known procedures IMMUNIZATIONS No Known Immunizations MEDICAL (GENERAL) HISTORY [...]
--- OUTSIDE RECORDS SUMMARY | 2020-06-13 16:31 | XMS REPORT ---
Author Author Jah GIBBS Organization [facility] Address [address] [place] [address] Care Team Providers Care Supervisor [employer] Name Role Phone SILVERIO GIBBSNETTE Unavailable PROBLEMS Type Condition ICD9-CM Code [id number] Code Onset Dates Condition S tatus SNOMED Code Problem Functional diarrhea K59.1 Active 90639252 Problem Gastroesophageal reflux disease with esophagitis K 21.0 Active 653952325 Problem Gastroesophageal reflux disease without esophagitis K21.9 Active 713464859 Problem Essential (primary) hypertension I10 Active 13866617 Problem Type 2 diabetes mellitus with hyperglycemia E11.65 Active 53549906 Problem Diabetes mellitus E11.9 Active 73 661023 Problem Irritable bowel syndrome with diarrhea K58.0 Active 226175037 Problem Type 2 diabetes mellitus without complications E11 .9 Active 889880667 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
--- OUTSIDE RECORDS SUMMARY | 2020-06-13 16:31 | XMS REPORT ---
Author Author Jah PARKER Organization [facility] Address [address] [place] [address] Care Team Providers Care Project Manager/Design Manager Name Role Phone PARKERPATRICIA Mckeon Unavailable PROBLEMS Type Condition ICD9-CM Code ABU69-PR Code Onset Dates Condition S tatus SNOMED Code Problem detention current use of insulin Z79.4 Active 061662523 Problem Essential (primary) hypertension I10 Active 97886495 Problem Type 2 diabetes mellitus with hyperglycemia E11.65 Active 97871885 Problem Chronic fatigue R53.82 Active 8422 9001 Problem Depression F32.9 Active 78870943 Problem Current non-adherence to medical treatment Z91.19 Active 1765665 Problem Pulmonary emphysema, unspecified emphysema type J4 3.9 Active 44091285 Problem Diabetes mellitus E11.9 Active 73 256510 Problem Recurrent major depressive disorder, in partial remission F33.41 Active 11291067 Problem Thrombocytosis D47.3 Active 48783 09 Problem Hypothyroid E03.9 Active 01912165 Problem Overactive bladder N32.81 Active 2 69826357 Problem Mixed hyperlipidemia E78.2 Active 163368623 Problem Chronic pain G89.29 Active 7378233 1 Problem Irritable bowel syndrome with diarrhea K58.0 Active 005440864 Problem Neuropathy G62.9 Active 108265252 Problem Gastroesophageal reflux disease with esophagitis K 21.0 Active 863817546 ALLERGIES No Information ENCOUNTERS Encounter Location Date Diagnosis [facility] [address] [facility] [id number] [address] [place] [address] May, Chronic pain G89.29 [facility] [address] [facility] [id number] [address] [place] [address] May, Syncope and collapse R55 ; C hronic fatigue R53.[address] lung screening R91.8 [facility] [address] [facility] [id number] [address] [place] [address] May, [facility] [address] [facility] [id number] [address] [place] [address] Apr, Chronic fatigue R53.82 ; Abn ormal chest CT R93.8 ; Elevated erythrocyte sedimentation rate R70.0 ; Hypothyroid E03.9 and Recurrent major depressive disorder, in partial remission F33.41 [facility] [address] [id number] [address] [place] [address] Apr, Hypothyroid E03.9 [facility] [address] [facility] [id number] [address] [place] [address] Apr, Depression F32.9 [facility] [address] [facility] [id number] [address] [place] [address] Apr, [facility] [address] [facility] [id number] [address] [place] [address] March, [facility] [address] [facility] [id number] [address] [place] [address] March, Hypothyroid E03.9 [facility] [address] [facility] [id number] [address] [place] [address] March, Diabetes mellitus E11.9 and Hypothyroid E03.9 [facility] [address] [facility] [id number] [address] [place] [address] March, Diabetes mellitus E11.9 [place] [address] [facility] [id number] [address] [place] [address] March, Hypothyroid E03.9 and Elevat ed liver enzymes R74.8 [facility] [address] [facility] [id number] [address] [place] [address] March, Type 2 diabetes mellitus wit h [...] disorder, in partial remission F33.41 [place] [address] [address] Feb, Chronic pain G89.29 [place] [address] [address] Feb, Type 2 diabetes mellitus wit h hyperglycemia E11.65 and Skin lesion of scalp L98.9 [place] [address] [address] Feb, [place] [address] [address] Jan, Type 2 diabetes mellitus wit h [...] bowel syndrome with diarrhea K58.0 [place] [address] [place] [id number] [address] [place] [address] Jan, [place] [address] [address] Jan, Controlled substance agreeme nt signed Z79.899 [place] [address] [place] [id number] [address] [place] [address] Dec, Type 2 diabetes mellitus wit h hyperglycemia E11.65 ; Controlled substance agreement signed Z79.899 ; 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 current use of insulin Z79.4 ; Essential (primary) hypertension I10 ; Hypothyroid E03.9 ; Neuropathy G62.9 ; Depression F32.9 ; Mixed hyperlipidemia E78.2 ; Irritable bowel syndrome with diarrhea K58.0 ; Gastroesophageal reflux disease with esophagitis K21.0 ; Thrombocytosis D47.3 ; Current non-adherence to medical treatment Z91.19 and Overweight (BMI 25.0-29.9) E66.3 [facility] [id number] [place] [address] Dec, Controlled substance agreeme nt signed Z79.899 [place] [address] [place] [id number] [address] [place] [address] Nov, Type 2 diabetes mellitus wit h hyperglycemia E11.65 and Current non- adherence to medical treatment Z91.19 [place] [address] [place] [id number] [address] [place] [address] Nov, [place] [address] [address] Nov, Chronic pain G89.29 [place] [address] [place] [id number] [place] [address] Nov, [place] [address] [address] Nov, Hypothyroid E03.9 [place] [address] [place] [id number] [address] [place] [address] Nov, Hypothyroid E03.9 [place] [address] [place] [id number] [address] [place] [address] Nov, Pulmonary emphysema, unspeci fied emphysema type J43.9 and Irritable bowel syndrome with diarrhea K58.0 [place] [address] [place] [id number] [address] [place] [address] Oct, [place] [address] [place] [id number] [address] [place] [address] Oct, [place] [address] [address] Oct, [place] [address] [place] [id number] [address] [place] [address] Oct, [place] [address] [place] [id number] [address] [place] [address] Oct, Chronic pain G89.29 [place] [address] [address] Oct, Diabetes mellitus E11.9 ; De pression F32.9 ; Mixed hyperlipidemia E78.2 ; Hypotension, unspecified hypotension type I95.9 ; Pulmonary emphysema, unspecified emphysema type J43.9 and Weight loss, unintentional R63.4 [place] [address] [address] Oct, Chronic pain G89.29 [place] [address] [address] Sep, Chronic pain G89.29 [place] [address] [address] Sep, Hypothyroid E03.9 and Diabet es mellitus E11.[address] [address] Aug, Type 2 diabetes mellitus wit h hyperglycemia E11.65 ; detention current use of insulin Z79.4 ; Essential (primary) hypertension I10 ; Hypothyroid E03.9 ; Neuropathy G62.9 ; Chronic pain G89.29 ; Mixed hy perlipidemia E78.2 and Encounter for immunization Z23 [place] [address] [address] Aug, Chronic pain G89.29 [place] [address] [address] Aug, Overactive bladder N32.81 ; Diabetes mellitus E11.9 and Chronic pain G89.29 [place] [address] [address] Jul, [place] [address] [place] [id number] [place] [address] Jun, [place] [address] [address] Jun, [facility] [address] [facility] [id number] [address] [place] [address] Jun, Hypothyroid E03.9 [facility] [address] [facility] [id number] [address] [place] [address] Jun, Diabetes mellitus E11.9 ; Hy pothyroid E03.9 ; Neuropathy G62.9 ; Chronic pain G89.29 and Neck mass R22.1 [facility] [address] [id number] [address] [place] [address] Apr, [facility] [address] [facility] [id number] [address] [place] [address] Apr, Acute cystitis without hemat uria N30.00 [facility] [address] [facility] [id number] [address] [place] [address] March, [facility] [address] [facility] [id number] [address] [place] [address] March, [facility] [address] [facility] [id number] [address] [place] [address] March, Near syncope R55 [facility] [address] [facility] [id number] [address] [place] [address] Feb, [facility] [address] [facility] [id number] [address] [place] [address] Feb, Chronic pain G89.29 [facility] [address] [facility] [id number] [address] [place] [address] Feb, [facility] [address] [facility] [id number] [address] [place] [address] Feb, [facility] [address] [facility] [id number] [address] [place] [address] Jan, Chronic pain G89.29 [facility] [address] [facility] [id number] [address] [place] [address] Jan, [facility] [address] [facility] [id number] [address] [place] [address] 16 Jan, 2017 [facility] [address] [place] [id number] [address] [place] [address] 14 Jan, 2017 Diabetes mellitus E11.9 ; Hy pothyroid E03.9 ; GERD (gastroesophageal reflux disease) K21.9 ; Insomnia G47.00 ; Functional diarrhea K59.1 ; Neuropathy G62.9 ; Depression F32.9 ; Chronic pain G89.29 ; Irritable bowel syndrome with diarrhea K58.0 ; Overactive bladder N32.81 ; Mixed hyperlipidemia E78.2 and Bronchitis J40 [facility] [address] [place] [id number] [address] [place] [address] Dec, [facility] [address] [address] 24 Dec, 2016 [facility] [address] [address] Dec, [facility] [address] [address] 24 Dec, 2016 [facility] [address] [place] [id number] [address] [place] [address] Dec, Chronic pain G89.29 [facility] [address] [place] [id number] [address] [place] [address] 23 Dec, 2016 [facility] [address] [place] [id number] [address] [place] [address] 20 Dec, 2016 [facility] [address] [place] [id number] [address] [place] [address] 17 Dec, 2016 Type 2 diabetes mellitus wit h foot ulcer E11.621 [facility] [address] [place] [id number] [address] [place] [address] 17 Dec, 2016 Type 2 diabetes mellitus wit h foot ulcer E11.621 [facility] [address] [place] [id number] [address] [place] [address] 14 Dec, 2016 HTN (hypertension) I10 ; Dep ression F32.9 ; Type 2 diabetes mellitus with foot ulcer E11.621 ; Functional diarrhea K59.1 ; Irritable bowel syndrome with diarrhea K58.0 ; Chronic pain G89.29 ; Insomnia G47.00 ; Overactive bladder N32.81 ; Mixed hyperlipidemia E78.2 ; Gastroesophageal reflux disease with esophagitis K21.0 and Acquired hypothyroidism E03.9 [place] [address] [place] [id number] [place] [address] Nov, [place] [address] [place] [id number] [address] [place] [address] Oct, [place] [address] [place] [id number] [place] [address] Oct, [place] [address] [place] [id number] [place] [address] Oct, [place] [address] [place] [id number] [place] [address] Sep, Functional diarrhea K59.1 ; HTN (hypertension) I10 ; Diabetes mellitus E11.9 ; Depression F32.9 ; Overactive bladder N32.81 ; Mixed hyperlipidemia E78.2 ; Gastroesophageal reflux disease without esophagitis K21.9 ; Chronic pain G89.29 ; Insomnia G47.00 and Acquired hypothyroidism E03.9 [place] [address] [place] [id number] [address] [place] [address] Sep, [place] [address] [place] [id number] [address] [place] [address] Aug, Encounter for immunization Z 23 [place] [address] [facility] [id number] [address] [place] [address] Aug, [place] [address] [place] [id number] [address] [place] [address] Jul, [place] [address] [place] [id number] [address] [place] [address] Jun, Type 2 diabetes mellitus wit hout complications E11.9 ; HTN (hypertension) I10 ; Hypothyroid E03.9 ; Neuropathy G62.9 ; Depression F32.9 ; Chronic pain G89.29 ; GERD (gastroesophageal reflux disease) K21.9 ; Insomnia G47.00 ; Overactive bladder N32.81 ; Mixed hyperlipidemia E78.2 ; Diarrhea of infectious origin A09 and Environmental allergies Z91.09 [place] [address] [address] Apr, [place] [address] [address] March, Hypothyroidism, unspecified E03.9 and Mixed hyperlipidemia E78.2 [place] [address] [address] March, Diabetes mellitus E11.9 ; HT N (hypertension) I10 ; Hypothyroid E03.9 ; Depression F32.9 ; Overactive bladder N32.81 ; Other chronic pain G89.29 ; Lumbago with sciatica, unspecified side M54.40 ; Environmental allergies Z91.09 and Gastroesophageal reflux disease, esophagitis presence not specified K21.9 [place] [address] [address] March, [place] [address] [address] Jan, HTN (hypertension) I10 ; Hyp othyroid E03.9 ; Neuropathy G62.9 ; Diabetes mellitus E11.9 ; Chronic pain G89.29 ; GERD (gastroesophageal reflux disease) K21.9 ; Overactive bladder N32.81 and Depression F32.9 [place] [address] [address] Dec, Ear pain, left H92.02 ; HTN (hypertension) I10 ; Hypothyroid E03.9 ; Neuropathy G62.9 ; Diabetes mellitus E11.9 ; Depression F32.9 ; GERD (gastroesophageal reflux disease) K21.9 ; Insomnia G47.00 and Overactive bladder N32.81 [place] [address] [address] Nov, Overactive bladder N32.81 an d Chronic pain G89.29 [place] [address] [address] Nov, Kidney failure N19 [place] [address] [address] Nov, [place] [address] [address] Nov, [place] [address] [address] Nov, Diabetes mellitus E11.9 ; De pression F32.9 ; Chronic pain G89.29 ; GERD (gastroesophageal reflux disease) K21.9 ; Insomnia G47.00 ; HTN (hypertension) I10 ; Hypothyroid E03.9 ; COPD (chronic obstructive pulmonary disease) J44.9 ; Bladder incontinence R32 and Incontinence R32 [place] [address] [address] Sep, Type 2 diabetes mellitus wit h foot ulcer E11.621 and Chromosomal abnormality, 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 [place] [address] [address] Sep, [place] [address] [address] Aug, [place] [address] [place] [id number] [address] [place] [address] Aug, [place] [address] [place] [id number] [address] [place] [address] Aug, HTN (hypertension) I10 ; Enc ounter for immunization Z23 ; Hypothyroid E03.9 ; Neuropathy G62.9 ; Diabetes mellitus E11.9 ; Depression F32.9 ; Chronic pain G89.29 ; GERD (gastroesophageal reflux disease) K21.9 ; Insomnia G47.00 and COPD (chronic obstructive pulmonary disease) J44.9 [place] [address] [place] [id number] [address] [place] [address] Jun, [facility] [address] [address] Jun, [facility] [address] [address] May, Essential hypertension, ivis gn 401.1 ; Unspecified hypothyroidism 244.9 ; Insomnia, unspecified 780.52 ; Shortness of breath 786.05 ; Depression 311 ; COPD (chronic obstructive pulmonary disease) 496 ; GERD (gastroesophageal reflux disease) 530.81 and Diabetes 1.5, 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 [facility] [address] [address] May, [facility] [address] [address] May, [facility] [address] [address] May, Shortness of breath 786.05 ; Essential hypertension, benign 401.1 ; Diabetes mellitus 250.00 ; Hyperlipidemia 272.4 ; Hypothyroid 244.9 ; Insomnia 780.52 and Cough 786.2 [facility] [address] [place] [id number] [address] [place] [address] Apr, [facility] [address] [place] [id number] [address] [place] [address] March, Shortness of breath 786.05 ; Nausea with vomiting 787.01 ; Essential hypertension, benign 401.1 ; Diabetes mellitus 250.00 ; Hyperlipidemia 272.4 and Hypothyroid 244.9 [facility] [address] [place] [id number] [address] [place] [address] Feb, [facility] [address] [address] Feb, [facility] [address] [place] [id number] [address] [place] [address] Jan, [facility] [address] [id number] [address] [place] [address], [place] [address] Jan, [facility] [address] [id number] [address] [place] [address], [place] [address] Jan, [facility] [address] [id number] [address] [place] [address], [place] [address] Jan, [facility] [address] [id number] [address] [place] [address], [place] [address] Jan, [facility] [address] [id number] [address] [place] [address], [place] [address] Jan, [facility] [address] [id number] [address] [place] [address], [place] [address] Jan, [facility] [address] [id number] [address] [place] [address], [place] [address] Jan, [facility] [address] [id number] [address] [place] [address], [place] [address] Jan, [facility] [address] [id number] [address] [place] [address], [place] [address] Jan, [facility] [address] [id number] [address] [place] [address], [place] [address] Dec, [facility] [address] [id number] [address] [place] [address] Dec, [facility] [address] [id number] [address] [place] [address] Dec, 2014 [facility] [address] [id number] [address] [place] [address], [place] [address] Dec, 2014 [facility] [address] [id number] [address] [place] [address], [place] [address] Dec, [facility] [address] [id number] [address] [place] [address] Dec, 2014 [facility] [address] [id number] [address] [place] [address] Dec, 2014 [facility] [address] [id number] [address] [place] [address], [place] [address] Dec, 2014 [facility] [address] [id number] [address] [place] [address], [place] [address] Dec, 2014 [facility] [address] [id number] [address] [place] [address], [place] [address] Dec, 2014 [facility] [address] [id number] [address] [place] [address], [place] [address] Oct, [facility] [address] [id number] [address] [place] [address], [place] [address] Oct, [facility] [address] [id number] [address] [place] [address], [place] [address] Oct, [facility] [address] [id number] [address] [place] [address], [place] [address] Oct, [facility] [address] [id number] [address] [place] [address], [place] [address] Oct, [facility] [address] [id number] [address] [place] [address], [place] [address] Oct, [facility] [address] [id number] [address] [place] [address], [place] [address] Oct, [facility] [address] [id number] [address] [place] [address], [place] [address] Oct, [facility] [address] [id number] [address] [place] [address], [place] [address] Oct, [facility] [address] [id number] [address] [place] [address], [place] [address] Oct, [facility] [address] [id number] [address] [place] [address], [place] [address] Oct, [facility] [address] [id number] [address] [place] [address], [place] [address] Oct, [facility] [address] [id number] [address] [place] [address], [place] [address] Oct, [facility] [address] [id number] [address] [place] [address], [place] [address] Oct, [facility] [address] [id number] [address] [place] [address], [place] [address] Sep, [facility] [address] [id number] [address] [place] [address], [place] [address] Sep, [facility] [address] [id number] [address] [place] [address], [place] [address] Sep, [facility] [address] [id number] [address] [place] [address], [place] [address] Sep, [facility] [address] [id number] [address] [place] [address], [place] [address] Sep, [facility] [address] [id number] [address] [place] [address], [place] [address] Sep, [facility] [address] [id number] [address] [place] [address], [place] [address] Sep, [facility] [address] [id number] [address] [place] [address], [place] [address] Sep, [facility] [address] [id number] [address] [place] [address], [place] [address] Sep, [facility] [address] [id number] [address] [place] [address], [place] [address] Aug, [facility] [address] [id number] [address] [place] [address], [place] [address] Aug, [facility] [address] [id number] [address] [place] [address], [place] [address] Aug, [facility] [address] [id number] [address] [place] [address], [place] [address] Aug, [facility] [address] [id number] [address] [place], [place] [address] [address] 16 Aug, 2014 [facility] [address] [id number] [address] [place] [address], [place] [address] Aug, [facility] [address] [id number] [address] [place] [address], [place] [address] Aug, [facility] [address] [id number] [address] [place] [address], [place] [address] Aug, [facility] [address] [id number] [address] [place] [address], [place] [address] Aug, [facility] [address] [id number] [address] [place] [address], [place] [address] Jul, [facility] [address] [id number] [address] [place] [address], [place] [address] Jul, [facility] [address] [id number] [address] [place] [address], [place] [address] Jul, [facility] [address] [id number] [address] [place] [address], [place] [address] Jul, [facility] [address] [id number] [address] [place] [address], [place] [address] Jul, [facility] [address] [id number] [address] [place] [address], [place] [address] Jul, [facility] [address] [id number] [address] [place] [address], [place] [address] Jul, [facility] [address] [id number] [address] [place] [address], [place] [address] Jul, 2013 [facility] [address] [id number] [address] [place] [address], [place] [address] Jul, [facility] [address] [id number] [address] [place] [address], [place] [address] Jul, [facility] [address] [id number] [address] [place] [address], [place] [address] Jun, [facility] [address] [id number] [place] [place] [address] Jun, [facility] [address] [id number] [address] [place] [address] Jun, [facility] [address] [id number] [facility] [place] [address] Jun, [facility] [address] [id number] [facility] [place] [address] Jun, [facility] [address] [id number] [facility] [place] [address] Jun, [facility] [address] [id number] [address] [place] [address], [place] [address] Jun, [facility] [address] [id number] [address] [place] [address], [place] [address] Jun, [facility] [address] [id number] [address] [place] [address], [place] [address] Jun, [facility] [address] [id number] [address] [place] [address], [place] [address] Jun, [facility] [address] [id number] [address] [place] [address], [place] [address] Jun, [facility] [address] [id number] [address] [place] [address], [place] [address] Jun, [facility] [address] [id number] [address] [place] [address], [place] [address] May, [facility] [address] [id number] [address] [place] [address], [place] [address] May, [facility] [address] [id number] [address] [place] [address], [place] [address] May, [facility] [address] [id number] [address] [place] [address], [place] [address] May, [facility] [address] [id number] [address] [place] [address], [place] [address] May, [facility] [address] [id number] [address] [place] [address], [place] [address] May, [facility] [address] [id number] [address] [place] [address], [place] [address] March, [facility] [address] [id number] [address] [place] [address], [place] [address] March, [facility] [address] [id number] [address] [place] [address], [place] [address] March, [facility] [address] [id number] [address] [place] [address], [place] [address] March, [facility] [address] [id number] [address] [place] [address], [place] [address] March, [facility] [address] [id number] [address] [place] [address], [place] [address] March, [facility] [address] [id number] [address] [place] [address], [place] [address] Feb, [facility] [address] [id number] [address] [place] [address], [place] [address] Feb, [facility] [address] [id number] [address] [place] [address], [place] [address] Feb, [facility] [address] [id number] [address] [place] [address], [place] [address] Feb, [facility] [address] [id number] [address] [place] [address], [place] [address] Jan, [facility] [address] [id number] [address] [place] [address], [place] [address] Jan, [facility] [address] [id number] [address] [place] [address], [place] [address] Jan, [facility] [address] [id number] [address] [place] [address], [place] [address] Jan, [facility] [address] [id number] [address] [place] [address], [place] [address] Jan, [facility] [address] [id number] [address] [place] [address], [place] [address] Jan, [facility] [address] [id number] [address] [place] [address], [place] [address] Jan, [facility] [address] [id number] [address] [place] [address], [place] [address] Jan, [facility] [address] [id number] [address] [place] [address], [place] [address] Jan, [facility] [address] [id number] [address] [place] [address], [place] [address] Jan, [facility] [address] [id number] [address] [place] [address], [place] [address] Jan, [facility] [address] [id number] [address] [place] [address], [place] [address] Jan, [facility] [address] [id number] [address] [place] [address], [place] [address] Dec, [facility] [address] [id number] [address] [place] [address], [place] [address] Dec, [facility] [address] [id number] [address] [place] [address], [place] [address] Dec, [facility] [address] [id number] [address] [place] [address], [place] [address] Dec, [facility] [address] [id number] [address] [place] [address], [place] [address] Dec, [facility] [address] [id number] [address] [place] [address], [place] [address] Dec, [facility] [address] [id number] [address] [place] [address], [place] [address] Nov, [facility] [address] [id number] [address] [place] [address], [place] [address] Nov, [facility] [address] [id number] [address] [place] [address], [place] [address] Oct, [facility] [address] [id number] [address] [place] [address], [place] [address] Oct, [facility] [address] [id number] [address] [place] [address], [place] [address] Oct, [facility] [address] [id number] [address] [place] [address], [place] [address] Oct, [facility] [address] [id number] [address] [place] [address], [place] [address] Oct, [facility] [address] [id number] [address] [place] [address], [place] [address] Oct, [facility] [address] [id number] [address] [place] [address], [place] [address] Sep, [facility] [address] [id number] [address] [place] [address], [place] [address] Sep, [facility] [address] [id number] [address] [place] [address], [place] [address] Sep, [facility] [address] [id number] [address] [place] [address], [place] [address] Sep, [facility] [address] [id number] [address] [place] [address], [place] [address] Aug, [facility] [address] [id number] [address] [place] [address], [place] [address] Aug, [facility] [address] [id number] [address] [place] [address], [place] [address] 08 Aug, 2013 [facility] [address] [id number] [address] [place] [address], [place] [address] 17 Jul, 2013 [facility] [address] [id number] [address] [place] [address], [place] [address] 14 Jul, 2013 [facility] [address] [id number] [address] [place] [address], [place] [address] Jul, [facility] [address] [id number] [address] [place] [address], [place] [address] Jun, [facility] [address] [id number] [address] [place] [address], [place] [address] Jun, [facility] [address] [id number] [address] [place] [address], [place] [address] Jun, [facility] [address] [id number] [address] [place] [address], [place] [address] Apr, [facility] [address] [id number] [address] [place] [address], [place] [address] Apr, [facility] [address] [id number] [address] [place] [address], [place] [address] March, [facility] [address] [id number] [address] [place] [address], [place] [address] March, [facility] [address] [id number] [address] [place] [address], [place] [address] March, [facility] [address] [id number] [address] [place] [address], [place] [address] March, [facility] [address] [id number] [address] [place] [address], [place] [address] Feb, [facility] [address] [id number] [address] [place] [address], [place] [address] Jan, [facility] [address] [id number] [address] [place] [address], [place] [address] Dec, [facility] [address] [id number] [address] [place] [address], [place] [address] Dec, [facility] [address] [id number] [address] [place] [address], [place] [address] Dec, [facility] [address] [id number] [address] [place] [address], [place] [address] Nov, [facility] [address] [id number] [address] [place] [address], [place] [address] 13 Oct, 2012 [facility] [address] [id number] [address] [place] [address], [place] [address] Oct, [facility] [address] [id number] [address] [place] [address], [place] [address] Sep, [facility] [address] [id number] [address] [place] [address], [place] [address] Sep, [facility] [address] [id number] [address] [place] [address], [place] [address] Sep, [facility] [address] [id number] [address] [place] [address], [place] [address] Sep, [facility] [address] [id number] [address] [place] [address], [place] [address] Sep, [facility] [address] [id number] [address] [place] [address], [place] [address] Sep, [facility] [address] [id number] [address] [place] [address], [place] [address] Sep, [facility] [address] [id number] [address] [place] [address], [place] [address] Aug, [facility] [address] [id number] [address] [place] [address], [place] [address] 16 Aug, 2012 [facility] [address] [id number] [address] [place] [address], [place] [address] Aug, [facility] [address] [id number] [address] [place] [address], [place] [address] Aug, [facility] [address] [id number] [address] [place] [address], [place] [address] Aug, [facility] [address] [id number] [address] [place] [address], [place] [address] Aug, [facility] [address] [id number] [address] [place] [address], [place] [address] Aug, [facility] [address] [id number] [address] [place] [address], [place] [address] Aug, [facility] [address] [id number] [address] [place] [address], [place] [address] Jul, [facility] [address] [id number] [address] [place] [address], [place] [address] Jul, [facility] [address] [id number] [address] [place] [address], [place] [address] Jun, [facility] [address] [id number] [address] [place] [address], [place] [address] May, [facility] [address] [id number] [address] [place] [address], [place] [address] Apr, [facility] [address] [id number] [address] [place] [address], [place] [address] Apr, [facility] [address] [id number] [address] [place] [address], [place] [address] Apr, [facility] [address] [id number] [address] [place] [address], [place] [address] March, [facility] [address] [id number] [address] [place] [address], [place] [address] March, [facility] [address] [id number] [address] [place] [address], [place] [address] March, [facility] [address] [id number] [address] [place] [address], [place] [address] March, [facility] [address] [id number] [address] [place] [address], [place] [address] March, [facility] [address] [id number] [address] [place] [address], [place] [address] March, [facility] [address] [id number] [address] [place] [address], [place] [address] March, [facility] [address] [id number] [address] [place] [address], [place] [address] 22 Jan, 2012 [facility] [address] [id number] [address] [place] [address], [place] [address] 21 Jan, 2012 [facility] [address] [id number] [address] [place] [address], [place] [address] 20 Jan, 2012 [facility] [address] [id number] [address] [place] [address], [place] [address] 13 Jan, 2012 [facility] [address] [id number] [address] [place] [address], [place] [address] Jan, [facility] [address] [id number] [address] [place] [address], [place] [address] 08 Dec, 2011 [facility] [address] [id number] [address] [place] [address], [place] [address] Dec, [facility] [address] [id number] [address] [place] [address], [place] [address] Nov, [facility] [address] [id number] [address] [place] [address], [place] [address] Nov, [facility] [address] [id number] [address] [place] [address], [place] [address] Nov, [facility] [address] [id number] [address] [place] [address], [place] [address] Nov, [facility] [address] [id number] [address] [place] [address], [place] [address] Oct, [facility] [address] [id number] [address] [place] [address], [place] [address] Oct, [facility] [address] [id number] [address] [place] [address], [place] [address] 14 Sep, 2011 [facility] [address] [id number] [address] [place] [address], [place] [address] 10 Sep, 2011 [facility] [address] [id number] [address] [place] [address], [place] [address] 10 Sep, 2011 [facility] [address] [id number] [address] [place] [address], [place] [address] May, [facility] [address] [id number] [address] [place] [address], [place] [address] Nov, [facility] [address] [id number] [address] [place] [address], [place] [address] 29 Oct, 2010 [facility] [address] [id number] [address] [place] [address], [place] [address] 14 Oct, 2010 [facility] [address] [id number] [address] [place] [address], [place] [address] 08 Oct, 2010 [facility] [address] [id number] [address] [place] [address], [place] [address] 15 Sep, 2010 [facility] [address] [id number] [address] [place] [address], [place] [address] Sep, [facility] [address] [id number] [address] [place] [address], [place] [address] Aug, [facility] [address] [id number] [address] [place] [address], [place] [address] March, [facility] [address] [id number] [address] [place] [address], [place] [address] Oct, [facility] [address] [id number] [address] [place] [address], [place] [address] 17 Oct, 2009 [facility] [address] [id number] [address] [place] [address], [place] [address] Oct, [facility] [address] [id number] [address] [place] [address], [place] [address] Oct, [facility] [address] [id number] [address] [place] [address], [place] [address] Sep, [facility] [address] [id number] [address] [place] [address], [place] [address] Sep, [facility] [address] [id number] [address] [address] Sep, [facility] [address] [facility] [id number] [address] [place] [address] Aug, [facility] [address] [facility] [id number] [address] [place] [address] Aug, [facility] [address] [facility] [id number] [address] [place] [address] Aug, [facility] [address] [facility] [id number] [address] [place] [address] Jan, IMMUNIZATIONS No Known Immunizations SOCIAL HISTORY Never Assessed REASON FOR VISIT med refill PLAN OF CARE VITAL SIGNS MEDICATIONS Medication Instructions Dosage Frequency Start Date End Date Duration S tatus Levemir FlexTouch 100 UNIT/ML Subcutaneous 2 times a day INJ ECT 120 UNITS SUBCUTANEOUSLY TWICE DAILY (MUST KEEP APPOINTMENT ON 11/08 FOR REFILLS) 12h 30 days Active Dicyclomine HCl 20 mg Orally 4 times a day TAKE ONE TABLET B Y MOUTH FOUR TIMES DAILY 6h 30 Active RESULTS No Results PROCEDURES No Known [...]
--- OUTSIDE RECORDS SUMMARY | 2020-06-13 16:31 | XMS REPORT ---
Author Author Jah PARKER Organization [facility] Address [address] [place] [address] Care Team Providers Care Rn Licensed Practical Name Role Phone PARKERPATRICIA Mckeon Unavailable PROBLEMS Type Condition ICD9-CM Code [id number] Code Onset Dates Condition S tatus SNOMED Code Problem Gastroesophageal reflux disease with esophagitis K 21.0 Active 673203689 Problem FDC current use of insulin Z79.4 Active 533783794 Problem Irritable bowel syndrome with diarrhea K58.0 Active 389651424 Problem Chronic fatigue R53.82 Active 8422 9001 Problem Recurrent major depressive disorder, in partial remission F33.41 Active 16527882 Problem Essential (primary) hypertension I10 Active 14645138 Problem Type 2 diabetes mellitus with hyperglycemia E11.65 Active 52077941 Problem Current non-adherence to medical treatment Z91.19 Active 9782636 Problem Pulmonary emphysema, unspecified emphysema type J4 3.9 Active 40684935 Problem Neuropathy G62.9 Active 033811479 Problem Hypothyroid E03.9 Active 19765573 Problem Thrombocytosis D47.3 Active 78892 09 Problem Overactive bladder N32.81 Active 2 16429116 Problem Chronic pain G89.29 Active 3251561 1 Problem Mixed hyperlipidemia E78.2 Active 827153035 ALLERGIES Substance Reaction Event Type Date Status Trilipix nausea Drug Allergy Jan, Active Niacin rash Drug Allergy Jan, Active Metformin HCl diarrhea Drug Allergy Jan, Active Januvia diarrhea Drug Allergy Jan, Active Gemfibrozil diarrhea Drug Allergy Jan, Active Actos diarrhea Drug Allergy Jan, Active ENCOUNTERS Encounter Location Date Diagnosis [facility] [address] [facility] [id number] [address] [address] May, Nodular radiologic density R 93.8 ; Weight loss, unintentional R63.4 and Pulmonary emphysema, unspecified emphysema type J43.9 [facility] [address] [facility] [id number] [address] [place] [phone] 10 May, 2018 Chronic pain G89.29 [facility] [address] [facility] [id number] [address] [place] [phone] 09 May, 2018 Syncope and collapse R55 ; C hronic fatigue R53.[address] lung screening R91.8 [facility] [address] [facility] [id number] [address] [place] [phone] May, [facility] [address] [facility] [id number] [address] [place] [address] Apr, Chronic fatigue R53.82 ; Abn ormal chest CT R93.8 ; Elevated erythrocyte sedimentation rate R70.0 ; Hypothyroid E03.9 and Recurrent major depressive disorder, in partial remission F33.41 [facility] [address] [facility] [id number] [address] [place] [phone] Apr, Hypothyroid E03.9 [facility] [address] [facility] [id number] [address] [place] [phone] Apr, Depression F32.9 [facility] [address] [facility] [id number] [address] [place] [phone] Apr, [facility] [address] [facility] [id number] [address] [place] [phone] March, [facility] [address] [facility] [id number] [address] [place] [phone] March, Hypothyroid E03.9 [facility] [address] [facility] [id number] [address] [place] [address] March, Diabetes mellitus E11.9 and Hypothyroid E03.9 [facility] [address] [facility] [id number] [address] [place] [address] March, Diabetes mellitus E11.9 [facility] [address] [facility] [id number] [address] [place] [address] March, Hypothyroid E03.9 and Elevat ed liver enzymes R74.8 [place] [address] [facility] [id number] [address] [place] [address] March, Type 2 diabetes mellitus wit h hyperglycemia E11.65 ; FDC current use of insulin Z79.4 ; Pulmonary emphysema, unspecified emphysema type J43.9 ; Hypothyroid E03.9 ; Neuropathy G62.9 ; Mixed hyperlipidemia E78.2 ; Chronic pain G89.29 ; Gastroesophageal reflux disease with esophagitis K21.0 ; Irritable bowel syndrome with diarrhea K58.0 ; Overactive bladder N32.81 and Recurrent major depressive disorder, in partial remission F33.41 [place] [address] [facility] [id number] [address] [place] [phone] Feb, Chronic pain G89.29 [place] [address] [facility] [id number] [address] [place] [phone] Feb, Type 2 diabetes mellitus wit h hyperglycemia E11.65 and Skin lesion of scalp L98.9 [place] [address] [place] [id number] [address] [place] [phone] Feb, [place] [address] [place] [id number] [address] [place] [address] Jan, Type 2 diabetes mellitus wit h hyperglycemia E11.65 ; meterman current use of insulin Z79.4 ; Essential (primary) hypertension I10 ; Pulmonary emphysema, unspecified emphysema type J43.9 ; Chronic pain G89.29 ; Controlled substance agreement signed Z79.899 ; Hypothyroid E03.9 ; Neuropathy G62.9 ; Gastroesophageal reflux disease with esophagitis K21.0 ; Overactive bladder N32.81 ; Depression F32.9 and Irritable bowel syndrome with diarrhea K58.0 [place] [address] [facility] [id number] [address] [place] [phone] Jan, [place] [address] [facility] [id number] [address] [place] [phone] Jan, Controlled substance agreeme nt signed Z79.899 [place] [address] [facility] [id number] [address] [place] [phone] 08 Feb, 2018 Type 2 diabetes mellitus [...] treatment Z91.19 and Overweight (BMI 25.0-29.9) E66.3 [facility] [address] [id number] [address] [place] [phone] 02 Dec, 2017 Controlled substance agreeme nt signed Z79.899 [place] [address] [facility] [id number] [address] [place] [address] Nov, Type 2 diabetes mellitus wit h hyperglycemia E11.65 and Current non- adherence to medical treatment Z91.19 [place] [address] [id number] [address] [place] [phone] Nov, [place] [address] [id number] [address] [place] [phone] Nov, Chronic pain G89.29 [place] [address] [facility] [id number] [address] [place] [phone] Nov, [place] [address] [id number] [address] [place] [address] Nov, Hypothyroid E03.9 [place] [address] [id number] [address] [place] [phone] Nov, Hypothyroid E03.9 [place] [address] [id number] [address] [place] [phone] Nov, Pulmonary emphysema, unspeci fied emphysema type J43.9 and Irritable bowel syndrome with diarrhea K58.0 [place] [address] [id number] [address] [place] [phone] Oct, [place] [address] [address] Oct, [facility] [address] [id number] Oct, [place] [address] [place] [id number] [place] [phone] Oct, [place] [address] [address] Oct, Chronic pain G89.29 [place] [address] [address] Oct, Diabetes mellitus E11.9 ; De pression F32.9 ; Mixed hyperlipidemia E78.2 ; Hypotension, unspecified hypotension type I95.9 ; Pulmonary emphysema, unspecified emphysema type J43.9 and Weight loss, unintentional R63.4 [place] [address] [address] Oct, Chronic pain G89.29 [place] [address] [address] Sep, Chronic pain G89.29 [place] [address] [address] Sep, Hypothyroid E03.9 and Diabet es mellitus E11.9 [place] [address] [address] Aug, Type 2 diabetes mellitus wit h hyperglycemia E11.65 ; FDC current use of insulin Z79.4 ; Essential (primary) hypertension I10 ; Hypothyroid E03.9 ; Neuropathy G62.9 ; Chronic pain G89.29 ; Mixed hy perlipidemia E78.2 and Encounter for immunization Z23 [place] [address] [place] [id number] [place] [address] Aug, Chronic pain G89.29 [place] [address] [address] Aug, Overactive bladder N32.81 ; Diabetes mellitus E11.9 and Chronic pain G89.29 [facility] [address] [facility] [id number] [address] [place] [phone] Jul, [facility] [address] [facility] [id number] [address] [place] [phone] Jun, [facility] [address] [facility] [id number] [address] [place] [phone] Jun, [facility] [address] [facility] [id number] [address] [place] [phone] Jun, Hypothyroid E03.9 [facility] [address] [facility] [id number] [place] [phone] Jun, Diabetes mellitus E11.9 ; Hy pothyroid E03.9 ; Neuropathy G62.9 ; Chronic pain G89.29 and Neck mass R22.1 [facility] [address] [facility] [id number] [address] [place] [phone] Apr, [facility] [address] [facility] [id number] [address] [place] [address] Apr, Acute cystitis without hemat uria N30.00 [facility] [address] [facility] [id number] [address] [place] [phone] March, [facility] [address] [facility] [id number] [address] [place] [phone] March, [facility] [address] [place] [id number] [address] [place] [phone] March, Near syncope R55 [facility] [address] [facility] [id number] [address] [place] [phone] Feb, [facility] [address] [place] [id number] [address] [place] [phone] Feb, Chronic pain G89.29 [facility] [address] [facility] [id number] [address] [place] [id number] Feb, [facility] [address] [place] [id number] [address] [place] [phone] Feb, [facility] [address] [address] Jan, Chronic pain G89.29 [facility] [address] [place] [id number] [address] [place] [phone] Jan, [facility] [address] [id number] 16 Jan, 2017 [facility] [address] [place] [id number] [address] [place] [phone] 14 Jan, 2017 Diabetes mellitus E11.9 ; Hy pothyroid E03.9 ; GERD (gastroesophageal reflux disease) K21.9 ; Insomnia G47.00 ; Functional diarrhea K59.1 ; Neuropathy G62.9 ; Depression F32.9 ; Chronic pain G89.29 ; Irritable bowel syndrome with diarrhea K58.0 ; Overactive bladder N32.81 ; Mixed hyperlipidemia E78.2 and Bronchitis J40 [facility] [address] [place] [id number] [address] [place] [phone] Dec, [facility] [address] [address] Dec, [facility] [address] [place] [id number] [address] [place] [phone] Dec, [facility] [address] [place] [id number] [address] [place] [phone] Dec, [facility] [address] [place] [id number] [address] [place] [address] Dec, Chronic pain G89.29 [facility] [address] [place] [id number] [address] [place] [phone] Dec, [facility] [address] [place] [id number] [address] [place] [address] Dec, [facility] [address] [address] 17 Dec, 2016 Type 2 diabetes mellitus wit h foot ulcer E11.621 [place] [address] [address] 17 Dec, 2016 Type 2 diabetes mellitus wit h foot ulcer E11.621 [place] [address] [place] [id number] [address] [place] [phone] 14 Dec, 2016 HTN (hypertension) I10 ; Dep ression F32.9 ; Type 2 diabetes mellitus with foot ulcer E11.621 ; Functional diarrhea K59.1 ; Irritable bowel syndrome with diarrhea K58.0 ; Chronic pain G89.29 ; Insomnia G47.00 ; Overactive bladder N32.81 ; Mixed hyperlipidemia E78.2 ; Gastroesophageal reflux disease with esophagitis K21.0 and Acquired hypothyroidism E03.9 [place] [address] [address] Nov, [place] [address] [address] Oct, [place] [address] [address] Oct, [place] [address] [address] Oct, [place] [address] [address] Sep, Functional diarrhea K59.1 ; HTN (hypertension) I10 ; Diabetes mellitus E11.9 ; Depression F32.9 ; Overactive bladder N32.81 ; Mixed hyperlipidemia E78.2 ; Gastroesophageal reflux disease without esophagitis K21.9 ; Chronic pain G89.29 ; Insomnia G47.00 and Acquired hypothyroidism E03.9 [place] [address] [place] [id number] [address] [place] [phone] 04 Sep, 2016 [place] [address] [address] Aug, Encounter for immunization Z 23 [place] [address] [address] Aug, [place] [address] [address] Jul, [place] [address] [address] Jun, Type 2 diabetes mellitus wit hout complications E11.9 ; HTN (hypertension) I10 ; Hypothyroid E03.9 ; Neuropathy G62.9 ; Depression F32.9 ; Chronic pain G89.29 ; GERD (gastroesophageal reflux disease) K21.9 ; Insomnia G47.00 ; Overactive bladder N32.81 ; Mixed hyperlipidemia E78.2 ; Diarrhea of infectious origin A09 and Environmental allergies Z91.09 [place] [address] [address] Apr, [place] [address] [address] March, Hypothyroidism, unspecified E03.9 and Mixed hyperlipidemia E78.2 [place] [address] [address] March, Diabetes mellitus E11.9 ; HT N (hypertension) I10 ; Hypothyroid E03.9 ; Depression F32.9 ; Overactive bladder N32.81 ; Other chronic pain G89.29 ; Lumbago with sciatica, unspecified side M54.40 ; Environmental allergies Z91.09 and Gastroesophageal reflux disease, esophagitis presence not specified K21.9 [place] [address] [place] [id number] [address] [place] [phone] March, [place] [address] [address] Jan, HTN (hypertension) I10 ; Hyp othyroid E03.9 ; Neuropathy G62.9 ; Diabetes mellitus E11.9 ; Chronic pain G89.29 ; GERD (gastroesophageal reflux disease) K21.9 ; Overactive bladder N32.81 and Depression F32.9 [place] [address] [place] [id number] [address] [place] [phone] 12 Dec, 2015 Ear pain, left H92.02 ; HTN (hypertension) I10 ; Hypothyroid E03.9 ; Neuropathy G62.9 ; Diabetes mellitus E11.9 ; Depression F32.9 ; GERD (gastroesophageal reflux disease) K21.9 ; Insomnia G47.00 and Overactive bladder N32.81 [place] [address] [address] Nov, Overactive bladder N32.81 an d Chronic pain G89.29 [place] [address] [address] Nov, Kidney failure N19 [place] [address] [address] Nov, [place] [address] [address] Nov, [place] [address] [address] Nov, Diabetes mellitus E11.9 ; De pression F32.9 ; Chronic pain G89.29 ; GERD (gastroesophageal reflux disease) K21.9 ; Insomnia G47.00 ; HTN (hypertension) I10 ; Hypothyroid E03.9 ; COPD (chronic obstructive pulmonary disease) J44.9 ; Bladder incontinence R32 and Incontinence R32 [place] [address] [address] Sep, Type 2 diabetes mellitus wit h foot ulcer E11.621 and Chromosomal abnormality, 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 [place] [address] [address] Sep, [place] [address] [address] Aug, [place] [address] [address] Aug, [place] [address] [address] Aug, Encounter for immunization Z 23 ; HTN (hypertension) I10 ; Hypothyroid E03.9 ; Neuropathy G62.9 ; Diabetes mellitus E11.9 ; Depression F32.9 ; Chronic pain G89.29 ; GERD (gastroesophageal reflux disease) K21.9 ; Insomnia G47.00 and COPD (chronic obstructive pulmonary disease) J44.[address] [address] Jun, [place] [address] [address] Jun, [address] [address] May, Essential hypertension, ivis gn 401.1 ; Unspecified hypothyroidism 244.9 ; Insomnia, unspecified 780.52 ; Shortness of breath 786.05 ; Depression 311 ; COPD (chronic obstructive pulmonary disease) 496 ; GERD (gastroesophageal reflux disease) 530.81 and Diabetes 1.5, 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 [address] May, [address] [address] May, [address] [address] May, Shortness of breath 786.05 ; Essential hypertension, benign 401.1 ; Diabetes mellitus 250.00 ; Hyperlipidemia 272.4 ; Hypothyroid 244.9 ; Insomnia 780.52 and Cough 786.[address] [address] Apr, [address] [address] March, Shortness of breath 786.05 ; Nausea with vomiting 787.01 ; Essential hypertension, benign 401.1 ; Diabetes mellitus 250.00 ; Hyperlipidemia 272.4 and Hypothyroid 244.9 [facility] [address] [id number] [address] [place] [address], [place] [address] 14 Feb, 2015 [facility] [address] [id number] [address] [place] [address], [place] [address] Feb, [facility] [address] [id number] [address] [place] [address], [place] [address] Jan, [facility] [address] [id number] [address] [place] [address], [place] [address] Jan, [facility] [address] [id number] [address] [place] [address], [place] [address] Jan, [facility] [address] [id number] [address] [place] [address], [place] [address] Jan, [facility] [address] [id number] [address] [place] [address], [place] [address] Jan, [facility] [address] [id number] [address] [place] [phone] Jan, [facility] [address] [id number] [address] [place] [address], [place] [address] Jan, [facility] [address] [id number] [address] [place] [phone] Jan, [facility] [address] [id number] [address] [place] [address], [place] [address] Jan, [facility] [address] [id number] [address] [place] [phone] Jan, [facility] [address] [id number] [address] [place] [address], [place] [address] Dec, [facility] [address] [id number] [address] [place] [phone] Dec, [facility] [address] [id number] [address] [place] [address], [place] [address] Dec, [facility] [address] [id number] [address] [place] [address], [place] [address] Dec, 2014 [facility] [address] [id number] [address] [place] [address], [place] [address] Dec, 2014 [facility] [address] [id number] [address] [place] [address], [place] [address] Dec, 2014 [facility] [address] [id number] [address] [place] [address], [place] [address] Dec, 2014 [facility] [address] [id number] [address] [place] [address], [place] [address] Dec, 2014 [facility] [address] [id number] [address] [place] [address], [place] [address] Dec, 2014 [facility] [address] [id number] [address] [place] [address], [place] [address] Dec, 2014 [facility] [address] [id number] [address] [place] [address], [place] [address] Oct, [facility] [address] [id number] [address] [place] [address], [place] [address] Oct, [facility] [address] [id number] [address] [place] [address], [place] [address] Oct, [facility] [address] [id number] [address] [place] [address], [place] [address] Oct, [facility] [address] [id number] [address] [place] [address], [place] [address] Oct, [facility] [address] [id number] [address] [place] [address], [place] [address] Oct, [facility] [address] [id number] [address] [place] [address], [place] [address] Oct, [facility] [address] [id number] [address] [place] [address], [place] [address] Oct, [facility] [address] [id number] [address] [place] [address], [place] [address] Oct, [facility] [address] [id number] [address] [place] [address], [place] [address] Oct, [facility] [address] [id number] [address] [place] [address], [place] [address] Oct, [facility] [address] [id number] [address] [place] [address], [place] [address] Oct, [facility] [address] [id number] [address] [place] [address], [place] [address] Oct, [facility] [address] [id number] [address] [place] [address], [place] [address] Oct, [facility] [address] [id number] [address] [place] [address], [place] [address] Sep, [facility] [address] [id number] [address] [place] [address], [place] [address] Sep, [facility] [address] [id number] [address] [place] [address], [place] [address] Sep, [facility] [address] [id number] [address] [place] [address], [place] [address] Sep, [facility] [address] [id number] [address] [place] [address], [place] [address] Sep, [facility] [address] [id number] [address] [place] [address], [place] [address] Sep, [facility] [address] [id number] [address] [place] [address], [place] [address] Sep, [facility] [address] [id number] [address] [place] [address], [place] [address] Sep, [facility] [address] [id number] [address] [place] [address], [place] [address] Sep, [facility] [address] [id number] [address] [place] [address], [place] [address] Aug, [facility] [address] [id number] [address] [place] [address], [place] [address] 20 Aug, 2014 [facility] [address] [id number] [address] [place] [address], [place] [address] 17 Aug, 2014 [facility] [address] [id number] [address] [place] [address], [place] [address] 17 Aug, 2014 [facility] [address] [id number] [address] [place] [address], [place] [address] 16 Aug, 2014 [facility] [address] [id number] [address] [place] [address], [place] [address] Aug, [facility] [address] [id number] [address] [place] [address], [place] [address] Aug, [facility] [address] [id number] [address] [place] [address], [place] [address] Aug, [facility] [address] [id number] [address] [place] [address], [place] [address] Aug, [facility] [address] [id number] [address] [place] [address], [place] [address] 29 Sep, 2013 [facility] [address] [id number] [address] [place] [address], [place] [address] 29 Sep, 2013 [facility] [address] [id number] [address] [place] [address], [place] [address] 25 Sep, 2013 [facility] [address] [id number] [address] [place] [address], [place] [address] 25 Sep, 2013 [facility] [address] [id number] [address] [place] [address], [place] [address] 25 Sep, 2013 [facility] [address] [id number] [address] [place] [address], [place] [address] 25 Jul, 2013 [facility] [address] [id number] [address] [place] [address], [place] [address] 25 Jul, 2013 [facility] [address] [id number] [address] [place] [address], [place] [address] 25 Jul, 2014 [facility] [address] [id number] [facility] [place] [address] Jul, [facility] [address] [id number] [facility] [place] [address] Jul, [facility] [address] [id number] [facility] [place] [address] Jun, [facility] [address] [id number] [address] [place] [address], [place] [address] Jun, [facility] [address] [id number] [facility] [place] [address] Jun, [facility] [address] [id number] [address] [place] [address], [place] [address] Jun, [facility] [address] [id number] [address] [place] [address], [place] [address] Jun, [facility] [address] [id number] [address] [place] [address], [place] [address] Jun, [facility] [address] [id number] [address] [place] [address], [place] [address] Jun, [facility] [address] [id number] [address] [place] [address], [place] [address] Jun, [facility] [address] [id number] [address] [place] [address], [place] [address] Jun, [facility] [address] [id number] [address] [place] [address], [place] [address] Jun, [facility] [address] [id number] [address] [place] [address], [place] [address] Jun, [facility] [address] [id number] [address] [place] [address], [place] [address] Jun, [facility] [address] [id number] [address] [place] [address], [place] [address] May, [facility] [address] [id number] [address] [place] [address], [place] [address] May, [facility] [address] [id number] [address] [place] [address], [place] [address] May, [facility] [address] [id number] [address] [place] [address], [place] [address] May, [facility] [address] [id number] [address] [place] [address], [place] [address] May, [facility] [address] [id number] [address] [place] [address], [place] [address] May, [facility] [address] [id number] [address] [place] [address], [place] [address] March, [facility] [address] [id number] [address] [place] [address], [place] [address] March, [facility] [address] [id number] [address] [place] [address], [place] [address] March, [facility] [address] [id number] [address] [place] [address], [place] [address] March, [facility] [address] [id number] [address] [place] [address], [place] [address] March, [facility] [address] [id number] [address] [place] [address], [place] [address] March, [facility] [address] [id number] [address] [place] [address], [place] [address] Feb, [facility] [address] [id number] [address] [place] [address], [place] [address] Feb, [facility] [address] [id number] [address] [place] [address], [place] [address] Feb, [facility] [address] [id number] [address] [place] [address], [place] [address] Feb, [facility] [address] [id number] [address] [place] [address], [place] [address] Jan, [facility] [address] [id number] [facility] [place] [address] 31 Jan, 2014 [facility] [address] [id number] [address] [place] [address], [place] [address] Jan, [facility] [address] [id number] [facility] [place] [address] Jan, [facility] [address] [id number] [address] [place] [address], [place] [address] Jan, [facility] [address] [id number] [address] [place] [address], [place] [address] Jan, [facility] [address] [id number] [address] [place] [address], [place] [address] Jan, [facility] [address] [id number] [address] [place] [address], [place] [address] Jan, [facility] [address] [id number] [address] [place] [address], [place] [address] Jan, [facility] [address] [id number] [address] [place] [address], [place] [address] Jan, [facility] [address] [id number] [address] [place] [address], [place] [address] Jan, [facility] [address] [id number] [address] [place] [address], [place] [address] Jan, [facility] [address] [id number] [address] [place] [address], [place] [address] Dec, [facility] [address] [id number] [address] [place] [address], [place] [address] Dec, [facility] [address] [id number] [address] [place] [address], [place] [address] Dec, [facility] [address] [id number] [address] [place] [address], [place] [address] Dec, [facility] [address] [id number] [address] [place] [address], [place] [address] Dec, [facility] [address] [id number] [address] [place] [address], [place] [address] Dec, [facility] [address] [id number] [address] [place] [address], [place] [address] Nov, [facility] [address] [id number] [address] [place] [address], [place] [address] Nov, [facility] [address] [id number] [address] [place] [address], [place] [address] Oct, [facility] [address] [id number] [address] [place] [address], [place] [address] Oct, [facility] [address] [id number] [address] [place] [address], [place] [address] Oct, [facility] [address] [id number] [address] [place] [address], [place] [address] Oct, [facility] [address] [id number] [address] [place] [address], [place] [address] Oct, [facility] [address] [id number] [address] [place] [address], [place] [address] Oct, [facility] [address] [id number] [address] [place] [address], [place] [address] Sep, [facility] [address] [id number] [address] [place] [address], [place] [address] Sep, [facility] [address] [id number] [address] [place] [address] Sep, [facility] [address] [id number] [address] [place] [address], [place] [address] Sep, [facility] [address] [id number] [address] [place] [address], [place] [address] Aug, [facility] [address] [id number] [address] [place] [address], [place] [address] Aug, [facility] [address] [id number] [address] [place] [address], [place] [address] 08 Aug, 2013 [facility] [address] [id number] [address] [place] [address], [place] [address] 17 Jul, 2013 [facility] [address] [id number] [address] [place] [address], [place] [address] 14 Jul, 2013 [facility] [address] [id number] [address] [place] [address], [place] [address] 04 Jul, 2013 [facility] [address] [id number] [address] [place] [address], [place] [address] Jun, [facility] [address] [id number] [address] [place] [address], [place] [address] Jun, [facility] [address] [id number] [address] [place] [address], [place] [address] Jun, [facility] [address] [id number] [address] [place] [address], [place] [address] Apr, [facility] [address] [id number] [address] [place] [address], [place] [address] Apr, [facility] [address] [id number] [address] [place] [address], [place] [address] March, [facility] [address] [id number] [address] [place] [address], [place] [address] March, [facility] [address] [id number] [address] [place] [address], [place] [address] March, [facility] [address] [id number] [address] [place] [address], [place] [address] March, [facility] [address] [id number] [address] [place] [address], [place] [address] Feb, [facility] [address] [id number] [address] [place] [address], [place] [address] Jan, [facility] [address] [id number] [address] [place] [address], [place] [address] Dec, [facility] [address] [id number] [address] [place] [address], [place] [address] 08 Dec, 2012 [facility] [address] [id number] [address] [place] [address], [place] [address] 07 Dec, 2012 [facility] [address] [id number] [address] [place] [address], [place] [address] Nov, [facility] [address] [id number] [address] [place] [address], [place] [address] Oct, [facility] [address] [id number] [address] [place] [address], [place] [address] Oct, [facility] [address] [id number] [address] [place] [address], [place] [address] Sep, [facility] [address] [id number] [address] [place] [address], [place] [address] Sep, [facility] [address] [id number] [address] [place] [address] Sep, [facility] [address] [id number] [address] [place] [address], [place] [address] Sep, [facility] [address] [id number] [address] [place] [address] Sep, [facility] [address] [id number] [address] [place] [address] Sep, [facility] [address] [id number] [address] [place] [address] Sep, [facility] [address] [id number] [address] [place] [address], [place] [address] Aug, [facility] [address] [id number] [address] [place] [address] Aug, [facility] [address] [id number] [address] [place] [address] Aug, [facility] [address] [id number] [address] [place] [address] Aug, [facility] [address] [id number] [address] [place] [address], [place] [address] Aug, [facility] [address] [id number] [address] [place] [address], [place] [address] Aug, [facility] [address] [id number] [address] [place] [address], [place] [address] Aug, [facility] [address] [id number] [address] [place] [address], [place] [address] Aug, [facility] [address] [id number] [address] [place] [address], [place] [address] Jul, [facility] [address] [id number] [address] [place] [address], [place] [address] Jul, [facility] [address] [id number] [address] [place] [address], [place] [address] Jun, [facility] [address] [id number] [address] [place] [address], [place] [address] May, [facility] [address] [id number] [address] [place] [address], [place] [address] Apr, [facility] [address] [id number] [address] [place] [address], [place] [address] Apr, [facility] [address] [id number] [address] [place] [address], [place] [address] Apr, [facility] [address] [id number] [address] [place] [address], [place] [address] March, [facility] [address] [id number] [address] [place] [address], [place] [address] March, [facility] [address] [id number] [address] [place] [address], [place] [address] March, [facility] [address] [id number] [address] [place] [address], [place] [address] March, [facility] [address] [id number] [address] [place] [address], [place] [address] March, [facility] [address] [id number] [address] [place] [address], [place] [address] March, [facility] [address] [id number] [address] [place] [address], [place] [address] March, [facility] [address] [id number] [address] [place] [address], [place] [address] Jan, [facility] [address] [id number] [address] [place] [address], [place] [address] Jan, [facility] [address] [id number] [address] [place] [address], [place] [address] Jan, [facility] [address] [id number] [address] [place] [address], [place] [address] Jan, [facility] [address] [id number] [address] [place] [address], [place] [address] Jan, [facility] [address] [id number] [address] [place] [address], [place] [address] Dec, [facility] [address] [id number] [address] [place] [address], [place] [address] Dec, [facility] [address] [id number] [address] [place] [address], [place] [address] Nov, [facility] [address] [id number] [address] [place] [address], [place] [address] Nov, [facility] [address] [id number] [address] [place] [address], [place] [address] Nov, [facility] [address] [id number] [address] [place] [address], [place] [address] Nov, [facility] [address] [id number] [address] [place] [address], [place] [address] Oct, [facility] [address] [id number] [address] [place] [address], [place] [address] 06 Oct, 2011 [facility] [address] [id number] [address] [place] [address], [place] [address] 14 Sep, 2011 [facility] [address] [id number] [address] [place] [address], [place] [address] 10 Sep, 2011 [facility] [address] [id number] [address] [place] [address], [place] [address] 10 Sep, 2011 [facility] [address] [id number] [address] [place] [address], [place] [address] 11 May, 2011 [facility] [address] [id number] [address] [place] [address], [place] [address] 20 Nov, 2010 [facility] [address] [id number] [address] [place] [address], [place] [address] 29 Oct, 2010 [facility] [address] [id number] [address] [place] [address], [place] [address] 14 Oct, 2010 [facility] [address] [id number] [address] [place] [address], [place] [address] 08 Oct, 2010 [facility] [address] [id number] [address] [place] [address], [place] [address] 15 Sep, 2010 [facility] [address] [id number] [address] [place] [address], [place] [address] 02 Sep, 2010 [facility] [address] [id number] [address] [place] [address], [place] [address] Aug, [facility] [address] [id number] [address] [place] [address], [place] [address] March, [facility] [address] [id number] [address] [place] [address], [place] [address] 17 Oct, 2009 [facility] [address] [id number] [address] [place] [address], [place] [address] 17 Oct, 2009 [facility] [address] [id number] [address] [place] [address], [place] [address] Oct, [facility] [address] [id number] [address] [place] [address] Oct, [facility] [address] [id number] [address] [place] [address] Sep, [facility] [address] [id number] [address] [place] [address] Sep, [facility] [address] [id number] [address] [place] [address] Sep, [facility] [address] [id number] [address] [place] [address] Aug, [facility] [address] [facility] [id number] [address] [place] [address] Aug, [facility] [address] [facility] [id number] [address] [place] [phone] Aug, [facility] [address] [facility] [id number] [address] [place] [phone] Jan, IMMUNIZATIONS No Known Immunizations SOCIAL HISTORY Never Assessed REASON FOR VISIT Establish Care: needs refills on medications felipa natarajan, Due for Ameritox and con tract update PLAN OF CARE Activity Details Follow Up 2 Months Reason:CHM/DM-after March 21 VITAL SIGNS Height 69 in 2018-01-14 Weight 171.5 lbs 2018-01-14 Temperature 97.6 degrees Fahrenheit 2018-01-14 Heart Rate 76 bpm 2018-01-14 Respiratory Rate 20 2018-01-14 BMI 25.32 kg/m2 2018-01-14 Blood pressure systolic 142 mmHg 2018-01-14 Blood pressure diastolic 90 mmHg 2018-01-14 MEDICATIONS Medication Instructions Dosage Frequency Start Date End Date Duration S gato Venlafaxine HCl ER 75 MG TAKE ONE CAPSULE BY MOUTH ONCE KRISTIAN Y WITH FOOD 30 Active Oxybutynin Chloride 5 mg Orally Twice a day 1 tablet 12h 90 days Active Viberzi 75 MG Orally Twice a day 1 tablet with food 12h 90 days Not-Taking Hydrocodone-Acetaminophen 5-325 MG Orally 3 times a day 1 tablet as needed 8h Jan, Feb, 28 days Active Levemir FlexTouch 100 UNIT/ML Subcutaneous 2 times a day INJ ECT 80 UNITS SUBCUTANEOUSLY TWICE DAILY (MUST KEEP APPOINTMENT ON 11/08 FOR REFILLS) 12h 12 months Active Lisinopril 10 mg Orally Once a day 1 tablet 24h Jan, 90 days Active Victoza 18 MG/3ML Subcutaneous Once a day 1.8 mg 24h Jan, 12 months Active Welchol 625 MG Orally Once a day 1 capsule 24h 21 Apr, 2017 90 days Active Effexor XR 75 mg Orally Once a day take 1 capsule (75 m g) by oral route once daily with food 24h Jan, 90 days Active Lomotil 2.5-0.025 MG Orally Four times a day 1 tablet as needed 6h 24 Feb, 2017 Not-Taking Cyclobenzaprine HCl 10 mg Orally Three times a day 1 tablet 8h 12 2015 Not-Taking Zyrtec Allergy 10 MG Orally Once a day as directed 24h 12 Dec, 2015 Not-Taking MetFORMIN HCl ER 500 mg Orally twice a day 2 tablets 12h 90 days Active Gabapentin 300 MG Orally Once a day 1 capsule before bedtime 24h Jan, 90 days Active Trilipix 135 MG Orally Once a day 1 capsule 24h 13 Mar, 2016 Not-Taking Levothyroxine Sodium 75 mcg Orally Once a day on an em pty stomach with a full glass of water 1 tablet Active Dicyclomine HCl 20 mg Orally 4 times a day TAKE ONE TABLET B Y MOUTH FOUR TIMES DAILY 6h 90 days Active Proventil HFA 108 (90 Base) MCG/ACT Inhalation every 4 hrs 2 puffs as needed 4h May, Active NovoLog Flexpen 100 UNIT/ML Subcutaneous 3 times a day wit meals 10 units Jan, 12 months Active Omeprazole 20 mg Orally 2 times a day TAKE ONE CAPSULE BY MOUTH TWI CE DAILY 12h 90 days Active RESULTS Name Result Date Reference Range AMERITOX 2018-01-14 PROCEDURES Procedure Date Ordered Result Body Site No Charge January 14, 2018 INSTRUCTIONS MEDICATIONS ADMINISTERED No Known Medications [...]
--- OUTSIDE RECORDS SUMMARY | 2020-06-13 16:31 | XMS REPORT ---
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 Name Role Phone PARKERPATRICIA Mckeon Unavailable PROBLEMS Type Condition ICD9-CM Code FPY24-SC Code Onset Dates Condition S tatus SNOMED Code Problem skilled nursing current use of insulin Z79.4 Active 118887157 Problem Essential (primary) hypertension I10 Active 99359165 Problem Type 2 diabetes mellitus with hyperglycemia E11.65 Active 26148185 Problem Chronic fatigue R53.82 Active 8422 9001 Problem Depression F32.9 Active 35318730 Problem Current non-adherence to medical treatment Z91.19 Active 5397909 Problem Pulmonary emphysema, unspecified emphysema type J4 3.9 Active 74017060 Problem Diabetes mellitus E11.9 Active 73 891287 Problem Recurrent major depressive disorder, in partial remission F33.41 Active 52349702 Problem Thrombocytosis D47.3 Active 01766 09 Problem Hypothyroid E03.9 Active 33767651 Problem Overactive bladder N32.81 Active 2 42778519 Problem Mixed hyperlipidemia E78.2 Active 983435352 Problem Chronic pain G89.29 Active 0966226 1 Problem Irritable bowel syndrome with diarrhea K58.0 Active 141983536 Problem Neuropathy G62.9 Active 029379329 Problem Gastroesophageal reflux disease with esophagitis K 21.0 Active 605247995 ALLERGIES No Information ENCOUNTERS Encounter Location Date Diagnosis [facility] [address] [facility] [place] [id number] [address] [place] [id number] May, Chronic pain G89.29 [facility] [address] [facility] [place] [id number] [address] [place] [phone] May, Syncope and collapse R55 ; C hronic fatigue R53.[address] lung screening R91.8 [facility] [address] [facility] [place] [id number] [address] [place] [phone] May, [facility] [address] [facility] [place] [id number] [address] [place] [address] Apr, Chronic fatigue R53.82 ; Abn ormal chest CT R93.8 ; Elevated erythrocyte sedimentation rate R70.0 ; Hypothyroid E03.9 and Recurrent major depressive disorder, in partial remission F33.41 [facility] [address] [id number] [address] [place] [id number] Apr, Hypothyroid E03.9 [facility] [address] [facility] [place] [id number] [address] [place] [phone] Apr, Depression F32.9 [facility] [address] [facility] [place] [id number] [address] [place] [phone] Apr, [facility] [address] [facility] [place] [id number] [address] [place] [phone] March, [facility] [address] [facility] [place] [id number] [address] [place] [id number] March, Hypothyroid E03.9 [facility] [address] [facility] [place] [id number] [address] [place] [phone] March, Diabetes mellitus E11.9 and Hypothyroid E03.9 [facility] [address] [facility] [place] [id number] [address] [place] [id number] March, Diabetes mellitus E11.9 [facility] [address] [facility] [place] [id number] [address] [place] [id number] March, Hypothyroid E03.9 and Elevat ed liver enzymes R74.8 [facility] [address] [facility] [place] [id number] [address] [place] [address] March, Type 2 diabetes mellitus wit h [...] major depressive disorder, in partial remission F33.41 [facility] [address] [address] Feb, Chronic pain G89.29 [facility] [facility] [address] [address] Feb, Type 2 diabetes mellitus wit h hyperglycemia E11.65 and Skin lesion of scalp L98.9 [facility] [facility] [address] [address] Feb, [facility] [facility] [address] [address] Jan, Type 2 diabetes mellitus wit h [...] bowel syndrome with diarrhea K58.0 [facility] [address] [place] [id number] [address] [place] [address] Jan, [facility] [facility] [address] [address] Jan, Controlled substance agreeme nt signed Z79.899 [place] [address] [place] [id number] [address] [place] [address] Dec, Type 2 diabetes mellitus wit h hyperglycemia E11.65 ; Controlled substance agreement signed Z79.899 ; 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 ; Essential (primary) hypertension I10 ; Hypothyroid E03.9 ; Neuropathy G62.9 ; Depression F32.9 ; Mixed hyperlipidemia E78.2 ; Irritable bowel syndrome with diarrhea K58.0 ; Gastroesophageal reflux disease with esophagitis K21.0 ; Thrombocytosis D47.3 ; Current non-adherence to medical treatment Z91.19 and Overweight (BMI 25.0-29.9) E66.3 [facility] [id number] [place] [address] Dec, Controlled substance agreeme nt signed Z79.899 [place] [address] [place] [id number] [address] [place] [address] Nov, Type 2 diabetes mellitus wit h hyperglycemia E11.65 and Current non- adherence to medical treatment Z91.19 [place] [address] [place] [id number] [address] [place] [address] Nov, [place] [address] [address] Nov, Chronic pain G89.29 [facility] [place] [address] [place] [id number] [place] [address] Nov, [place] [address] [address] Nov, Hypothyroid E03.9 [place] [address] [place] [id number] [address] [place] [address] Nov, Hypothyroid E03.9 [place] [address] [place] [id number] [address] [place] [address] Nov, Pulmonary emphysema, unspeci fied emphysema type J43.9 and Irritable bowel syndrome with diarrhea K58.0 [place] [address] [place] [id number] [address] [place] [phone] Oct, [place] [address] [place] [id number] [address] [place] [phone] Oct, [place] [address] [address] Oct, [place] [address] [place] [id number] [address] [place] [address] Oct, [place] [address] [place] [id number] [address] [place] [address] Oct, Chronic pain G89.29 [place] [address] [address] Oct, Diabetes mellitus E11.9 ; De pression F32.9 ; Mixed hyperlipidemia E78.2 ; Hypotension, unspecified hypotension type I95.9 ; Pulmonary emphysema, unspecified emphysema type J43.9 and Weight loss, unintentional R63.4 [place] [address] [address] Oct, Chronic pain G89.29 [place] [address] [address] Sep, Chronic pain G89.29 [place] [address] [address] Sep, Hypothyroid E03.9 and Diabet es mellitus E11.[address] [address] Aug, Type 2 diabetes mellitus wit h hyperglycemia E11.65 ; skilled nursing current use of insulin Z79.4 ; Essential (primary) hypertension I10 ; Hypothyroid E03.9 ; Neuropathy G62.9 ; Chronic pain G89.29 ; Mixed hy perlipidemia E78.2 and Encounter for immunization Z23 [place] [address] [address] Aug, Chronic pain G89.29 [place] [address] [address] Aug, Overactive bladder N32.81 ; Diabetes mellitus E11.9 and Chronic pain G89.29 [place] [address] [address] Jul, [place] [address] [place] [id number] [place] [address] Jun, [place] [address] [address] Jun, [facility] [address] [facility] [place] [id number] [address] [place] [address] Jun, Hypothyroid E03.9 [facility] [address] [facility] [place] [id number] [address] [place] [id number] Jun, Diabetes mellitus E11.9 ; Hy pothyroid E03.9 ; Neuropathy G62.9 ; Chronic pain G89.29 and Neck mass R22.1 [facility] [address] [id number] [address] [place] [address] Apr, [facility] [address] [facility] [place] [id number] [address] [place] [address] Apr, Acute cystitis without hemat uria N30.00 [facility] [address] [facility] [place] [id number] [address] [place] [phone] March, [facility] [address] [facility] [place] [id number] [address] [place] [phone] March, [facility] [address] [facility] [place] [id number] [address] [place] [address] March, Near syncope R55 [facility] [address] [facility] [place] [id number] [address] [place] [address] Feb, [facility] [address] [facility] [place] [id number] [address] [place] [address] Feb, Chronic pain G89.29 [facility] [address] [facility] [place] [id number] [address] [place] [phone] Feb, [facility] [address] [facility] [place] [id number] [address] [place] [address] Feb, [facility] [address] [facility] [place] [id number] [address] [place] [address] Jan, Chronic pain G89.29 [facility] [address] [facility] [place] [id number] [address] [place] [id number] Jan, [facility] [address] [facility] [place] [id number] [address] [place] [id number] 16 Jan, 2017 [facility] [address] [place] [id number] [address] [place] [phone] 14 Jan, 2017 Diabetes mellitus E11.9 ; Hy pothyroid E03.9 ; GERD (gastroesophageal reflux disease) K21.9 ; Insomnia G47.00 ; Functional diarrhea K59.1 ; Neuropathy G62.9 ; Depression F32.9 ; Chronic pain G89.29 ; Irritable bowel syndrome with diarrhea K58.0 ; Overactive bladder N32.81 ; Mixed hyperlipidemia E78.2 and Bronchitis J40 [facility] [address] [place] [id number] [address] [place] [id number] Dec, [facility] [address] [address] 24 Dec, 2016 [facility] [address] [address] Dec, [facility] [address] [address] 24 Dec, 2016 [facility] [address] [place] [id number] [address] [place] [address] Dec, Chronic pain G89.29 [facility] [address] [place] [id number] [address] [place] [phone] 23 Dec, 2016 [facility] [address] [place] [id number] [address] [place] [address] 20 Dec, 2016 [facility] [address] [place] [id number] [address] [place] [id number] 17 Dec, 2016 Type 2 diabetes mellitus wit h foot ulcer E11.621 [facility] [address] [place] [id number] [address] [place] [id number] 17 Dec, 2016 Type 2 diabetes mellitus wit h foot ulcer E11.621 [facility] [address] [place] [id number] [address] [place] [address] 14 Dec, 2016 HTN (hypertension) I10 ; Dep ression F32.9 ; Type 2 diabetes mellitus with foot ulcer E11.621 ; Functional diarrhea K59.1 ; Irritable bowel syndrome with diarrhea K58.0 ; Chronic pain G89.29 ; Insomnia G47.00 ; Overactive bladder N32.81 ; Mixed hyperlipidemia E78.2 ; Gastroesophageal reflux disease with esophagitis K21.0 and Acquired hypothyroidism E03.9 [place] [address] [place] [id number] [place] [address] Nov, [place] [address] [place] [id number] [address] [place] [phone] Oct, [place] [address] [place] [id number] [place] [phone] Oct, [place] [address] [place] [id number] [place] [phone] Oct, [place] [address] [place] [id number] [place] [address] Sep, Functional diarrhea K59.1 ; HTN (hypertension) I10 ; Diabetes mellitus E11.9 ; Depression F32.9 ; Overactive bladder N32.81 ; Mixed hyperlipidemia E78.2 ; Gastroesophageal reflux disease without esophagitis K21.9 ; Chronic pain G89.29 ; Insomnia G47.00 and Acquired hypothyroidism E03.9 [place] [address] [place] [id number] [address] [place] [phone] Sep, [place] [address] [place] [id number] [address] [place] [phone] Aug, Encounter for immunization Z 23 [place] [address] [facility] [place] [id number] [address] [place] [phone] Aug, [place] [address] [place] [id number] [address] [place] [phone] Jul, [place] [address] [place] [id number] [address] [place] [phone] Jun, Type 2 diabetes mellitus wit hout complications E11.9 ; HTN (hypertension) I10 ; Hypothyroid E03.9 ; Neuropathy G62.9 ; Depression F32.9 ; Chronic pain G89.29 ; GERD (gastroesophageal reflux disease) K21.9 ; Insomnia G47.00 ; Overactive bladder N32.81 ; Mixed hyperlipidemia E78.2 ; Diarrhea of infectious origin A09 and Environmental allergies Z91.09 [place] [address] [address] Apr, [place] [address] [address] March, Hypothyroidism, unspecified E03.9 and Mixed hyperlipidemia E78.2 [place] [address] [address] March, Diabetes mellitus E11.9 ; HT N (hypertension) I10 ; Hypothyroid E03.9 ; Depression F32.9 ; Overactive bladder N32.81 ; Other chronic pain G89.29 ; Lumbago with sciatica, unspecified side M54.40 ; Environmental allergies Z91.09 and Gastroesophageal reflux disease, esophagitis presence not specified K21.9 [place] [address] [address] March, [place] [address] [address] Jan, HTN (hypertension) I10 ; Hyp othyroid E03.9 ; Neuropathy G62.9 ; Diabetes mellitus E11.9 ; Chronic pain G89.29 ; GERD (gastroesophageal reflux disease) K21.9 ; Overactive bladder N32.81 and Depression F32.9 [place] [address] [address] Dec, Ear pain, left H92.02 ; HTN (hypertension) I10 ; Hypothyroid E03.9 ; Neuropathy G62.9 ; Diabetes mellitus E11.9 ; Depression F32.9 ; GERD (gastroesophageal reflux disease) K21.9 ; Insomnia G47.00 and Overactive bladder N32.81 [place] [address] [address] Nov, Overactive bladder N32.81 an d Chronic pain G89.29 [place] [address] [address] Nov, Kidney failure N19 [place] [address] [address] Nov, [place] [address] [address] Nov, [place] [address] [address] Nov, Diabetes mellitus E11.9 ; De pression F32.9 ; Chronic pain G89.29 ; GERD (gastroesophageal reflux disease) K21.9 ; Insomnia G47.00 ; HTN (hypertension) I10 ; Hypothyroid E03.9 ; COPD (chronic obstructive pulmonary disease) J44.9 ; Bladder incontinence R32 and Incontinence R32 [place] [address] [address] Sep, Type 2 diabetes mellitus wit h foot ulcer E11.621 and Chromosomal abnormality, 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 [place] [address] [address] Sep, [place] [address] [address] Aug, [place] [address] [place] [id number] [address] [place] [address] Aug, [place] [address] [place] [id number] [address] [place] [address] Aug, HTN (hypertension) I10 ; Enc ounter for immunization Z23 ; Hypothyroid E03.9 ; Neuropathy G62.9 ; Diabetes mellitus E11.9 ; Depression F32.9 ; Chronic pain G89.29 ; GERD (gastroesophageal reflux disease) K21.9 ; Insomnia G47.00 and COPD (chronic obstructive pulmonary disease) J44.9 [place] [address] [place] [id number] [address] [place] [address] Jun, [facility] [address] [address] Jun, [facility] [address] [address] May, Essential hypertension, ivis gn 401.1 ; Unspecified hypothyroidism 244.9 ; Insomnia, unspecified 780.52 ; Shortness of breath 786.05 ; Depression 311 ; COPD (chronic obstructive pulmonary disease) 496 ; GERD (gastroesophageal reflux disease) 530.81 and Diabetes 1.5, 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 [facility] [address] [address] May, [facility] [address] [address] May, [facility] [address] [address] May, Shortness of breath 786.05 ; Essential hypertension, benign 401.1 ; Diabetes mellitus 250.00 ; Hyperlipidemia 272.4 ; Hypothyroid 244.9 ; Insomnia 780.52 and Cough 786.2 [facility] [address] [place] [id number] [address] [place] [address] Apr, [facility] [address] [place] [id number] [address] [place] [address] March, Shortness of breath 786.05 ; Nausea with vomiting 787.01 ; Essential hypertension, benign 401.1 ; Diabetes mellitus 250.00 ; Hyperlipidemia 272.4 and Hypothyroid 244.9 [facility] [address] [place] [id number] [address] [place] [address] Feb, [facility] [address] [address] Feb, [facility] [address] [place] [id number] [address] [place] [phone] Jan, [facility] [address] [id number] [address] [place] [address], [place] [address] Jan, [facility] [address] [id number] [address] [place] [address], [place] [address] Jan, [facility] [address] [id number] [address] [place] [address], [place] [address] Jan, [facility] [address] [id number] [address] [place] [address], [place] [address] Jan, [facility] [address] [id number] [address] [place] [address], [place] [address] Jan, [facility] [address] [id number] [address] [place] [address], [place] [address] Jan, [facility] [address] [id number] [address] [place] [address], [place] [address] Jan, [facility] [address] [id number] [address] [place] [address], [place] [address] Jan, [facility] [address] [id number] [address] [place] [address], [place] [address] Jan, [facility] [address] [id number] [address] [place] [address], [place] [address] Dec, [facility] [address] [id number] [address] [place] [phone] Dec, [facility] [address] [id number] [address] [place] [address] Dec, 2014 [facility] [address] [id number] [address] [place] [address], [place] [address] Dec, 2014 [facility] [address] [id number] [address] [place] [address], [place] [address] Dec, [facility] [address] [id number] [address] [place] [phone] Dec, 2014 [facility] [address] [id number] [address] [place] [phone] Dec, 2014 [facility] [address] [id number] [address] [place] [address], [place] [address] Dec, 2014 [facility] [address] [id number] [address] [place] [address], [place] [address] Dec, 2014 [facility] [address] [id number] [address] [place] [address], [place] [address] Dec, 2014 [facility] [address] [id number] [address] [place] [address], [place] [address] Oct, [facility] [address] [id number] [address] [place] [address], [place] [address] Oct, [facility] [address] [id number] [address] [place] [address], [place] [address] Oct, [facility] [address] [id number] [address] [place] [address], [place] [address] Oct, [facility] [address] [id number] [address] [place] [address], [place] [address] Oct, [facility] [address] [id number] [address] [place] [address], [place] [address] Oct, [facility] [address] [id number] [address] [place] [address], [place] [address] Oct, [facility] [address] [id number] [address] [place] [address], [place] [address] Oct, [facility] [address] [id number] [address] [place] [address], [place] [address] Oct, [facility] [address] [id number] [address] [place] [address], [place] [address] Oct, [facility] [address] [id number] [address] [place] [address], [place] [address] Oct, [facility] [address] [id number] [address] [place] [address], [place] [address] Oct, [facility] [address] [id number] [address] [place] [address], [place] [address] Oct, [facility] [address] [id number] [address] [place] [address], [place] [address] Oct, [facility] [address] [id number] [address] [place] [address], [place] [address] Sep, [facility] [address] [id number] [address] [place] [address], [place] [address] Sep, [facility] [address] [id number] [address] [place] [address], [place] [address] Sep, [facility] [address] [id number] [address] [place] [address], [place] [address] Sep, [facility] [address] [id number] [address] [place] [address], [place] [address] Sep, [facility] [address] [id number] [address] [place] [address], [place] [address] Sep, [facility] [address] [id number] [address] [place] [address], [place] [address] Sep, [facility] [address] [id number] [address] [place] [address], [place] [address] Sep, [facility] [address] [id number] [address] [place] [address], [place] [address] Sep, [facility] [address] [id number] [address] [place] [address], [place] [address] Aug, [facility] [address] [id number] [address] [place] [address], [place] [address] Aug, [facility] [address] [id number] [address] [place] [address], [place] [address] Aug, [facility] [address] [id number] [address] [place] [address], [place] [address] Aug, [facility] [address] [id number] [address] [place] [address] [address] 16 Aug, 2014 [facility] [address] [id number] [address] [place] [address], [place] [address] Aug, [facility] [address] [id number] [address] [place] [address], [place] [address] Aug, [facility] [address] [id number] [address] [place] [address], [place] [address] Aug, [facility] [address] [id number] [address] [place] [address], [place] [address] Aug, [facility] [address] [id number] [address] [place] [address], [place] [address] Jul, [facility] [address] [id number] [address] [place] [address], [place] [address] Jul, [facility] [address] [id number] [address] [place] [address], [place] [address] Jul, [facility] [address] [id number] [address] [place] [address], [place] [address] Jul, [facility] [address] [id number] [address] [place] [address], [place] [address] Jul, [facility] [address] [id number] [address] [place] [address], [place] [address] Jul, [facility] [address] [id number] [address] [place] [address], [place] [address] Jul, [facility] [address] [id number] [address] [place] [address], [place] [address] Jul, 2013 [facility] [address] [id number] [address] [place] [address], [place] [address] Jul, [facility] [address] [id number] [address] [place] [address], [place] [address] Jul, [facility] [address] [id number] [address] [place] [address], [place] [address] Jun, [facility] [address] [id number] [facility] [place] [address] Jun, [facility] [address] [id number] [facility] [place] [address] Jun, [facility] [address] [id number] [facility] [place] [address] Jun, [facility] [address] [id number] [facility] [place] [address] Jun, [facility] [address] [id number] [facility] [place] [address] Jun, [facility] [address] [id number] [address] [place] [address], [place] [address] Jun, [facility] [address] [id number] [address] [place] [address], [place] [address] Jun, [facility] [address] [id number] [address] [place] [address], [place] [address] Jun, [facility] [address] [id number] [address] [place] [address], [place] [address] Jun, [facility] [address] [id number] [address] [place] [address], [place] [address] Jun, [facility] [address] [id number] [address] [place] [address], [place] [address] Jun, [facility] [address] [id number] [address] [place] [address], [place] [address] May, [facility] [address] [id number] [address] [place] [address], [place] [address] May, [facility] [address] [id number] [address] [place] [address], [place] [address] May, [facility] [address] [id number] [address] [place] [address], [place] [address] May, [facility] [address] [id number] [address] [place] [address], [place] [address] May, [facility] [address] [id number] [address] [place] [address], [place] [address] May, [facility] [address] [id number] [address] [place] [address], [place] [address] March, [facility] [address] [id number] [address] [place] [address], [place] [address] March, [facility] [address] [id number] [address] [place] [address], [place] [address] March, [facility] [address] [id number] [address] [place] [address], [place] [address] March, [facility] [address] [id number] [address] [place] [address], [place] [address] March, [facility] [address] [id number] [address] [place] [address], [place] [address] March, [facility] [address] [id number] [address] [place] [address], [place] [address] Feb, [facility] [address] [id number] [address] [place] [address], [place] [address] Feb, [facility] [address] [id number] [address] [place] [address], [place] [address] Feb, [facility] [address] [id number] [address] [place] [address], [place] [address] Feb, [facility] [address] [id number] [address] [place] [address], [place] [address] Jan, [facility] [address] [id number] [address] [place] [address], [place] [address] Jan, [facility] [address] [id number] [address] [place] [address], [place] [address] Jan, [facility] [address] [id number] [address] [place] [address], [place] [address] Jan, [facility] [address] [id number] [address] [place] [address], [place] [address] Jan, [facility] [address] [id number] [address] [place] [address], [place] [address] Jan, [facility] [address] [id number] [address] [place] [address], [place] [address] Jan, [facility] [address] [id number] [address] [place] [address], [place] [address] Jan, [facility] [address] [id number] [address] [place] [address], [place] [address] Jan, [facility] [address] [id number] [address] [place] [address], [place] [address] Jan, [facility] [address] [id number] [address] [place] [address], [place] [address] Jan, [facility] [address] [id number] [address] [place] [address], [place] [address] Jan, [facility] [address] [id number] [address] [place] [address], [place] [address] Dec, [facility] [address] [id number] [address] [place] [address], [place] [address] Dec, [facility] [address] [id number] [address] [place] [address], [place] [address] Dec, [facility] [address] [id number] [address] [place] [address], [place] [address] Dec, [facility] [address] [id number] [address] [place] [address], [place] [address] Dec, [facility] [address] [id number] [address] [place] [address], [place] [address] Dec, [facility] [address] [id number] [address] [place] [address], [place] [address] Nov, [facility] [address] [id number] [address] [place] [address], [place] [address] Nov, [facility] [address] [id number] [address] [place] [address], [place] [address] Oct, [facility] [address] [id number] [address] [place] [address], [place] [address] Oct, [facility] [address] [id number] [address] [place] [address], [place] [address] Oct, [facility] [address] [id number] [address] [place] [address], [place] [address] Oct, [facility] [address] [id number] [address] [place] [address], [place] [address] Oct, [facility] [address] [id number] [address] [place] [address], [place] [address] Oct, [facility] [address] [id number] [address] [place] [address], [place] [address] Sep, [facility] [address] [id number] [address] [place] [address], [place] [address] Sep, [facility] [address] [id number] [address] [place] [address], [place] [address] Sep, [facility] [address] [id number] [address] [place] [address], [place] [address] Sep, [facility] [address] [id number] [address] [place] [address], [place] [address] Aug, [facility] [address] [id number] [address] [place] [address], [place] [address] Aug, [facility] [address] [id number] [address] [place] [address], [place] [address] 08 Aug, 2013 [facility] [address] [id number] [address] [place] [address], [place] [address] 17 Jul, 2013 [facility] [address] [id number] [address] [place] [address], [place] [address] 14 Jul, 2013 [facility] [address] [id number] [address] [place] [address], [place] [address] Jul, [facility] [address] [id number] [address] [place] [address], [place] [address] Jun, [facility] [address] [id number] [address] [place] [address], [place] [address] Jun, [facility] [address] [id number] [address] [place] [address], [place] [address] Jun, [facility] [address] [id number] [address] [place] [address], [place] [address] Apr, [facility] [address] [id number] [address] [place] [address], [place] [address] Apr, [facility] [address] [id number] [address] [place] [address], [place] [address] March, [facility] [address] [id number] [address] [place] [address], [place] [address] March, [facility] [address] [id number] [address] [place] [address], [place] [address] March, [facility] [address] [id number] [address] [place] [address], [place] [address] March, [facility] [address] [id number] [address] [place] [address], [place] [address] Feb, [facility] [address] [id number] [address] [place] [address], [place] [address] Jan, [facility] [address] [id number] [address] [place] [address], [place] [address] Dec, [facility] [address] [id number] [address] [place] [address], [place] [address] Dec, [facility] [address] [id number] [address] [place] [address], [place] [address] Dec, [facility] [address] [id number] [address] [place] [address], [place] [address] Nov, [facility] [address] [id number] [address] [place] [address], [place] [address] 13 Oct, 2012 [facility] [address] [id number] [address] [place] [address], [place] [address] Oct, [facility] [address] [id number] [address] [place] [address], [place] [address] Sep, [facility] [address] [id number] [address] [place] [address], [place] [address] Sep, [facility] [address] [id number] [address] [place] [address], [place] [address] Sep, [facility] [address] [id number] [address] [place] [address], [place] [address] Sep, [facility] [address] [id number] [address] [place] [address], [place] [address] Sep, [facility] [address] [id number] [address] [place] [address], [place] [address] Sep, [facility] [address] [id number] [address] [place] [address], [place] [address] Sep, [facility] [address] [id number] [address] [place] [address], [place] [address] Aug, [facility] [address] [id number] [address] [place] [address], [place] [address] 16 Aug, 2012 [facility] [address] [id number] [address] [place] [address], [place] [address] Aug, [facility] [address] [id number] [address] [place] [address], [place] [address] Aug, [facility] [address] [id number] [address] [place] [address], [place] [address] Aug, [facility] [address] [id number] [address] [place] [address], [place] [address] Aug, [facility] [address] [id number] [address] [place] [address], [place] [address] Aug, [facility] [address] [id number] [address] [place] [address], [place] [address] Aug, [facility] [address] [id number] [address] [place] [address], [place] [address] Jul, [facility] [address] [id number] [address] [place] [address], [place] [address] Jul, [facility] [address] [id number] [address] [place] [address], [place] [address] Jun, [facility] [address] [id number] [address] [place] [address], [place] [address] May, [facility] [address] [id number] [address] [place] [address], [place] [address] Apr, [facility] [address] [id number] [address] [place] [address], [place] [address] Apr, [facility] [address] [id number] [address] [place] [address], [place] [address] Apr, [facility] [address] [id number] [address] [place] [address], [place] [address] March, [facility] [address] [id number] [address] [place] [address], [place] [address] March, [facility] [address] [id number] [address] [place] [address], [place] [address] March, [facility] [address] [id number] [address] [place] [address], [place] [address] March, [facility] [address] [id number] [address] [place] [address], [place] [address] March, [facility] [address] [id number] [address] [place] [address], [place] [address] March, [facility] [address] [id number] [address] [place] [address], [place] [address] March, [facility] [address] [id number] [address] [place] [address], [place] [address] 22 Jan, 2012 [facility] [address] [id number] [address] [place] [address], [place] [address] 21 Jan, 2012 [facility] [address] [id number] [address] [place] [address], [place] [address] 20 Jan, 2012 [facility] [address] [id number] [address] [place] [address], [place] [address] 13 Jan, 2012 [facility] [address] [id number] [address] [place] [address], [place] [address] Jan, [facility] [address] [id number] [address] [place] [address], [place] [address] 08 Dec, 2011 [facility] [address] [id number] [address] [place] [address], [place] [address] Dec, [facility] [address] [id number] [address] [place] [address], [place] [address] Nov, [facility] [address] [id number] [address] [place] [address], [place] [address] Nov, [facility] [address] [id number] [address] [place] [address], [place] [address] Nov, [facility] [address] [id number] [address] [place] [address], [place] [address] Nov, [facility] [address] [id number] [address] [place] [address], [place] [address] Oct, [facility] [address] [id number] [address] [place] [address], [place] [address] Oct, [facility] [address] [id number] [address] [place] [address], [place] [address] 14 Sep, 2011 [facility] [address] [id number] [address] [place] [address], [place] [address] 10 Sep, 2011 [facility] [address] [id number] [address] [place] [address], [place] [address] 10 Sep, 2011 [facility] [address] [id number] [address] [place] [address], [place] [address] May, [facility] [address] [id number] [address] [place] [address], [place] [address] Nov, [facility] [address] [id number] [address] [place] [address], [place] [address] 29 Oct, 2010 [facility] [address] [id number] [address] [place] [address], [place] [address] 14 Oct, 2010 [facility] [address] [id number] [address] [place] [address], [place] [address] 08 Oct, 2010 [facility] [address] [id number] [address] [place] [address], [place] [address] 15 Sep, 2010 [facility] [address] [id number] [address] [place] [address], [place] [address] Sep, [facility] [address] [id number] [address] [place] [address], [place] [address] Aug, [facility] [address] [id number] [address] [place] [address], [place] [address] March, [facility] [address] [id number] [address] [place] [address], [place] [address] Oct, [facility] [address] [id number] [address] [place] [address], [place] [address] 17 Oct, 2009 [facility] [address] [id number] [address] [place] [address], [place] [address] Oct, [facility] [address] [id number] [address] [place] [address], [place] [address] Oct, [facility] [address] [id number] [address] [place] [address], [place] [address] Sep, [facility] [address] [id number] [address] [place] [address], [place] [address] Sep, [facility] [address] [id number] [address] [address] Sep, [facility] [address] [facility] [id number] [address] [place] [address] Aug, [facility] [address] [facility] [place] [id number] [address] [place] [address] Aug, [facility] [address] [facility] [place] [id number] [address] [place] [address] Aug, [facility] [address] [facility] [place] [id number] [address] [place] [address] Jan, IMMUNIZATIONS No Known Immunizations SOCIAL HISTORY Never Assessed REASON FOR VISIT Controlled Med Refill PLAN OF CARE VITAL SIGNS MEDICATIONS Medication Instructions Dosage Frequency Start Date End Date Duration S gato Tramadol HCl 50 mg Orally 4 times a day TAKE ONE TABLET BY MOUTH EVERY 6 hours as needed 6h Jan, 28 days Active RESULTS No Results PROCEDURES [...]
--- OUTSIDE RECORDS SUMMARY | 2020-06-13 16:32 | XMS REPORT ---
Author Author Jah PARKER Organization [facility] Address [address] [place] [address] Care Team Providers Care Manager Housekeeping Name Role Phone PRAKERPATRICIA Mckeon Unavailable PROBLEMS Type Condition ICD9-CM Code OOH55-WQ Code Onset Dates Condition S tatus SNOMED Code Problem Mixed hyperlipidemia E78.2 Active 814335717 Problem Irritable bowel syndrome with diarrhea K58.0 Active 782736711 Problem Gastroesophageal reflux disease with esophagitis K 21.0 Active 282479982 Problem Recurrent major depressive disorder, in partial remission F33.41 Active 75735380 Problem Current non-adherence to medical treatment Z91.19 Active 8066018 Problem Type 2 diabetes mellitus with hyperglycemia E11.65 Active 05687973 Problem snf current use of insulin Z79.4 Active 247108993 Problem Pulmonary emphysema, unspecified emphysema type J4 3.9 Active 21881475 Problem Essential (primary) hypertension I10 Active 37298326 Problem Chronic pain G89.29 Active 7983320 1 Problem Neuropathy G62.9 Active 654663060 Problem Hypothyroid E03.9 Active 31840034 Problem Thrombocytosis D47.3 Active 64353 09 Problem Overactive bladder N32.81 Active 2 34959366 ALLERGIES Substance Reaction Event Type Date Status Trilipix nausea Drug Allergy Aug, Active Niacin rash Drug Allergy Aug, Active Metformin HCl diarrhea Drug Allergy Aug, Active Januvia diarrhea Drug Allergy Aug, Active Gemfibrozil diarrhea Drug Allergy Aug, Active Actos diarrhea Drug Allergy Aug, Active ENCOUNTERS Encounter Location Date Diagnosis [facility] [address] [facility] [id number] [address] [place] [address] March, Type 2 diabetes mellitus wit h hyperglycemia E11.65 ; snf current use of insulin Z79.4 ; Pulmonary emphysema, unspecified emphysema type J43.9 ; Hypothyroid E03.9 ; Neuropathy G62.9 ; Mixed hyperlipidemia E78.2 ; Chronic pain G89.29 ; Gastroesophageal reflux disease with esophagitis K21.0 ; Irritable bowel syndrome with diarrhea K58.0 ; Overactive bladder N32.81 and Recurrent major depressive disorder, in partial remission F33.41 [place] [address] [place] [address] Feb, Chronic pain G89.29 [place] [address] [place] [address] Feb, Type 2 diabetes mellitus wit h hyperglycemia E11.65 and Skin lesion of scalp L98.9 [place] [address] [place] [id number] [address] [place] [address] Feb, [place] [address] [place] [address] Jan, Type 2 diabetes mellitus wit h hyperglycemia E11.65 ; 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 ; Essential (primary) hypertension I10 ; Pulmonary emphysema, unspecified emphysema type J43.9 ; Chronic pain G89.29 ; Controlled substance agreement signed Z79.899 ; Hypothyroid E03.9 ; Neuropathy G62.9 ; Gastroesophageal reflux disease with esophagitis K21.0 ; Overactive bladder N32.81 ; Depression F32.9 and Irritable bowel syndrome with diarrhea K58.0 [place] [address] [place] [id number] [address] [place] [address] Jan, [place] [address] [place] [id number] [address] [place] [address] Jan, Controlled substance agreeme nt signed Z79.899 [place] [address] [facility] [id number] [address] [place] [address] Dec, Type 2 diabetes mellitus wit h hyperglycemia E11.65 ; Controlled substance agreement signed Z79.899 ; snf current use of insulin Z79.4 ; Essential (primary) hypertension I10 ; Hypothyroid E03.9 ; Neuropathy G62.9 ; Depression F32.9 ; Mixed hyperlipidemia E78.2 ; Irritable bowel syndrome with diarrhea K58.0 ; Gastroesophageal reflux disease with esophagitis K21.0 ; Thrombocytosis D47.3 ; Current non-adherence to medical treatment Z91.19 and Overweight (BMI 25.0-29.9) E66.3 [place] [address] [address] [place] [id number] [address] [place] [address] 02 Dec, 2017 Controlled substance agreeme nt signed Z79.899 [place] [address] [address] Nov, Type 2 diabetes mellitus wit h hyperglycemia E11.65 and Current non- adherence to medical treatment Z91.19 [place] [address] [place] [id number] [address] [place] [address] Nov, [place] [address] [place] [id number] [place] [address] Nov, Chronic pain G89.29 [place] [address] [address] Nov, [place] [address] [place] [id number] [address] [place] [address] Nov, Hypothyroid E03.9 [place] [address] [place] [id number] [place] [address] Nov, Hypothyroid E03.9 [place] [address] [place] [id number] [place] [address] Nov, Pulmonary emphysema, unspeci fied emphysema type J43.9 and Irritable bowel syndrome with diarrhea K58.0 [place] [address] [place] [id number] [address] [place] [address] Oct, [place] [address] [place] [id number] [place] [address] Oct, [place] [address] [place] [id number] [address] [place] [address] Oct, [place] [address] [address] Oct, [place] [address] [place] [address] Oct, Chronic pain G89.29 [place] [address] [facility] [id number] [address] [place] [address] Oct, Diabetes mellitus E11.9 ; De pression F32.9 ; Mixed hyperlipidemia E78.2 ; Hypotension, unspecified hypotension type I95.9 ; Pulmonary emphysema, unspecified emphysema type J43.9 and Weight loss, unintentional R63.4 [place] [address] [facility] [id number] [address] [place] [address] Oct, Chronic pain G89.29 [place] [address] [facility] [id number] [address] [place] [address] Sep, Chronic pain G89.29 [place] [address] [place] [address] Sep, Hypothyroid E03.9 and Diabet es mellitus E11.9 [place] [address] [place] [address] Aug, Type 2 diabetes mellitus wit h hyperglycemia E11.65 ; snf current use of insulin Z79.4 ; Essential (primary) hypertension I10 ; Hypothyroid E03.9 ; Neuropathy G62.9 ; Chronic pain G89.29 ; Mixed hy perlipidemia E78.2 and Encounter for immunization Z23 [place] [address] [place] [address] Aug, Chronic pain G89.29 [place] [address] [place] [address] Aug, Overactive bladder N32.81 ; Diabetes mellitus E11.9 and Chronic pain G89.29 [place] [address] [facility] [id number] [address] [place] [address] Jul, [place] [address] [place] [address] Jun, [facility] [address] [id number] [address] [place] [address] Jun, [facility] [address] [id number] [address] [place] [address] Jun, Hypothyroid E03.9 [facility] [address] [id number] [address] [place] [address] Jun, Diabetes mellitus E11.9 ; Hy pothyroid E03.9 ; Neuropathy G62.9 ; Chronic pain G89.29 and Neck mass R22.1 [facility] [address] [id number] [address] [place] [address] Apr, [facility] [address] [id number] [address] [place] [address] Apr, Acute cystitis without hemat uria N30.00 [facility] [address] [facility] [id number] [address] [place] [address] March, [facility] [address] [id number] [address] [place] [address] March, [facility] [address] [facility] [id number] [address] [place] [address] March, Near syncope R55 [facility] [address] [facility] [id number] [address] [place] [address] Feb, [facility] [address] [facility] [id number] [address] [place] [address] Feb, Chronic pain G89.29 [facility] [address] [id number] [address] [place] [address] Feb, [facility] [address] [facility] [id number] [address] [place] [address] Feb, [facility] [address] [id number] [address] [place] [address] Jan, Chronic pain G89.29 [facility] [address] [facility] [id number] [address] [place] [address] Jan, [facility] [address] [place] [address] Jan, [facility] [address] [address] Jan, Diabetes mellitus E11.9 ; Hy pothyroid E03.9 ; GERD (gastroesophageal reflux disease) K21.9 ; Insomnia G47.00 ; Functional diarrhea K59.1 ; Neuropathy G62.9 ; Depression F32.9 ; Chronic pain G89.29 ; Irritable bowel syndrome with diarrhea K58.0 ; Overactive bladder N32.81 ; Mixed hyperlipidemia E78.2 and Bronchitis J40 [facility] [address] [address] Dec, [facility] [address] [address] Dec, [facility] [address] [address] Dec, [facility] [address] [place] [id number] [address] [place] [address] Dec, [facility] [address] [place] [id number] [address] [place] [address] Dec, Chronic pain G89.29 [facility] [address] [place] [id number] [address] [place] [address] Dec, [facility] [address] [place] [id number] [address] [place] [address] Dec, [facility] [address] [place] [id number] [address] [place] [address] Dec, Type 2 diabetes mellitus wit h foot ulcer E11.621 [facility] [address] [place] [id number] [address] [place] [address] 17 Dec, 2016 Type 2 diabetes mellitus wit h foot ulcer E11.621 [facility] [address] [address] 14 Dec, 2016 HTN (hypertension) I10 ; Dep ression F32.9 ; Type 2 diabetes mellitus with foot ulcer E11.621 ; Functional diarrhea K59.1 ; Irritable bowel syndrome with diarrhea K58.0 ; Chronic pain G89.29 ; Insomnia G47.00 ; Overactive bladder N32.81 ; Mixed hyperlipidemia E78.2 ; Gastroesophageal reflux disease with esophagitis K21.0 and Acquired hypothyroidism E03.9 [place] [address] [address] Nov, [place] [address] [address] Oct, [place] [address] [address] Oct, [address] [address] Oct, [place] [address] [place] [id number] [place] [address] Sep, Functional diarrhea K59.1 ; HTN (hypertension) I10 ; Diabetes mellitus E11.9 ; Depression F32.9 ; Overactive bladder N32.81 ; Mixed hyperlipidemia E78.2 ; Gastroesophageal reflux disease without esophagitis K21.9 ; Chronic pain G89.29 ; Insomnia G47.00 and Acquired hypothyroidism E03.9 [place] [address] [address] Sep, [place] [address] [place] [id number] [place] [address] Aug, Encounter for immunization Z [address] [address] Aug, [place] [address] [place] [id number] [place] [address] Jul, [place] [address] [address] Jun, Type 2 diabetes mellitus wit hout complications E11.9 ; HTN (hypertension) I10 ; Hypothyroid E03.9 ; Neuropathy G62.9 ; Depression F32.9 ; Chronic pain G89.29 ; GERD (gastroesophageal reflux disease) K21.9 ; Insomnia G47.00 ; Overactive bladder N32.81 ; Mixed hyperlipidemia E78.2 ; Diarrhea of infectious origin A09 and Environmental allergies Z91.09 [place] [address] [address] Apr, [place] [address] [address] March, Hypothyroidism, unspecified E03.9 and Mixed hyperlipidemia E78.2 [place] [address] [address] March, Diabetes mellitus E11.9 ; HT N (hypertension) I10 ; Hypothyroid E03.9 ; Depression F32.9 ; Overactive bladder N32.81 ; Other chronic pain G89.29 ; Lumbago with sciatica, unspecified side M54.40 ; Environmental allergies Z91.09 and Gastroesophageal reflux disease, esophagitis presence not specified K21.9 [place] [address] [address] March, [place] [address] [address] Jan, HTN (hypertension) I10 ; Hyp othyroid E03.9 ; Neuropathy G62.9 ; Diabetes mellitus E11.9 ; Chronic pain G89.29 ; GERD (gastroesophageal reflux disease) K21.9 ; Overactive bladder N32.81 and Depression F32.9 [place] [address] [address] Dec, Ear pain, left H92.02 ; HTN (hypertension) I10 ; Hypothyroid E03.9 ; Neuropathy G62.9 ; Diabetes mellitus E11.9 ; Depression F32.9 ; GERD (gastroesophageal reflux disease) K21.9 ; Insomnia G47.00 and Overactive bladder N32.81 [place] [address] [facility] [id number] [address] [place] [address] Nov, Overactive bladder N32.81 an d Chronic pain G89.29 [place] [address] [facility] [id number] [address] [place] [address] Nov, Kidney failure N19 [place] [address] [place] [id number] [address] [place] [address] Nov, [place] [address] [facility] [id number] [address] [place] [address] Nov, [place] [address] [place] [id number] [place] [address] Nov, Diabetes mellitus E11.9 ; De pression F32.9 ; Chronic pain G89.29 ; GERD (gastroesophageal reflux disease) K21.9 ; Insomnia G47.00 ; HTN (hypertension) I10 ; Hypothyroid E03.9 ; COPD (chronic obstructive pulmonary disease) J44.9 ; Bladder incontinence R32 and Incontinence R32 [place] [address] [place] [id number] [address] [place] [address] Sep, Type 2 diabetes mellitus wit h foot ulcer E11.621 and Chromosomal abnormality, 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 [place] [address] [place] [id number] [address] [place] [address] Sep, [place] [address] [facility] [id number] [address] [place] [address] Aug, [place] [address] [place] [id number] [address] [place] [address] Aug, [place] [address] [place] [id number] [address] [place] [address] Aug, HTN (hypertension) I10 ; Enc ounter for immunization Z23 ; Hypothyroid E03.9 ; Neuropathy G62.9 ; Diabetes mellitus E11.9 ; Depression F32.9 ; Chronic pain G89.29 ; GERD (gastroesophageal reflux disease) K21.9 ; Insomnia G47.00 and COPD (chronic obstructive pulmonary disease) J44.9 [facility] [address] [address] Jun, [facility] [address] [address] Jun, [facility] [address] [address] May, Essential hypertension, ivis gn 401.1 ; Unspecified hypothyroidism 244.9 ; Insomnia, unspecified 780.52 ; Shortness of breath 786.05 ; Depression 311 ; COPD (chronic obstructive pulmonary disease) 496 ; GERD (gastroesophageal reflux disease) 530.81 and Diabetes 1.5, 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 [place] [address] [address] May, [address] [address] May, [place] [address] [address] May, Shortness of breath 786.05 ; Essential hypertension, benign 401.1 ; Diabetes mellitus 250.00 ; Hyperlipidemia 272.4 ; Hypothyroid 244.9 ; Insomnia 780.52 and Cough 786.2 [place] [address] [address] Apr, [address] [address] March, Shortness of breath 786.05 ; Nausea with vomiting 787.01 ; Essential hypertension, benign 401.1 ; Diabetes mellitus 250.00 ; Hyperlipidemia 272.4 and Hypothyroid 244.9 [place] [address] [address] Feb, [facility] [address] [address] Feb, [facility] [address] [id number] [address] [place] [address], [place] [address] Jan, [facility] [address] [id number] [address] [place] [address], [place] [address] Jan, [facility] [address] [id number] [address] [place] [address], [place] [address] Jan, [facility] [address] [id number] [address] [place] [address], [place] [address] Jan, [facility] [address] [id number] [address] [place] [address], [place] [address] Jan, [facility] [address] [id number] [address] [place] [address], [place] [address] Jan, [facility] [address] [id number] [address] [place] [address], [place] [address] Jan, [facility] [address] [id number] [address] [place] [address], [place] [address] Jan, [facility] [address] [id number] [address] [place] [address], [place] [address] Jan, [facility] [address] [id number] [address] [place] [address], [place] [address] Jan, [facility] [address] [id number] [address] [place] [address], [place] [address] Dec, [facility] [address] [id number] [address] [place] [address], [place] [address] Dec, 2014 [facility] [address] [id number] [address] [place] [address], [place] [address] Dec, 2014 [facility] [address] [id number] [address] [place] [address], [place] [address] Dec, 2014 [facility] [address] [id number] [address] [place] [address], [place] [address] Dec, 2014 [facility] [address] [id number] [address] [place] [address], [place] [address] Dec, 2014 [facility] [address] [id number] [address] [place] [address], [place] [address] Dec, 2014 [facility] [address] [id number] [address] [place] [address], [place] [address] Dec, 2014 [facility] [address] [id number] [address] [place] [address], [place] [address] Dec, 2014 [facility] [address] [id number] [address] [place] [address], [place] [address] Dec, 2014 [facility] [address] [id number] [address] [place] [address], [place] [address] Oct, [facility] [address] [id number] [address] [place] [address], [place] [address] Oct, [facility] [address] [id number] [address] [place] [address], [place] [address] Oct, [facility] [address] [id number] [address] [place] [address], [place] [address] Oct, [facility] [address] [id number] [address] [place] [address], [place] [address] Oct, [facility] [address] [id number] [address] [place] [address], [place] [address] Oct, [facility] [address] [id number] [address] [place] [address], [place] [address] Oct, [facility] [address] [id number] [address] [place] [address], [place] [address] Oct, [facility] [address] [id number] [address] [place] [address], [place] [address] Oct, [facility] [address] [id number] [address] [place] [address], [place] [address] Oct, [facility] [address] [id number] [address] [place] [address], [place] [address] Oct, [facility] [address] [id number] [address] [place] [address], [place] [address] Oct, [facility] [address] [id number] [address] [place] [address], [place] [address] Oct, [facility] [address] [id number] [address] [place] [address], [place] [address] Oct, [facility] [address] [id number] [address] [place] [address], [place] [address] Sep, [facility] [address] [id number] [address] [place] [address], [place] [address] Sep, [facility] [address] [id number] [address] [place] [address], [place] [address] Sep, [facility] [address] [id number] [address] [place] [address], [place] [address] Sep, [facility] [address] [id number] [address] [place] [address], [place] [address] Sep, [facility] [address] [id number] [address] [place] [address], [place] [address] Sep, [facility] [address] [id number] [address] [place] [address], [place] [address] Sep, [facility] [address] [id number] [address] [place] [address], [place] [address] Sep, [facility] [address] [id number] [address] [place] [address], [place] [address] Sep, [facility] [address] [id number] [address] [place] [address], [place] [address] Aug, [facility] [address] [id number] [address] [place] [address], [place] [address] Aug, [facility] [address] [id number] [address] [place] [address], [place] [address] Aug, [facility] [address] [id number] [address] [place] [address], [place] [address] Aug, [facility] [address] [id number] [address] [place] [address], [place] [address] 16 Aug, 2014 [facility] [address] [id number] [address] [place] [address], [place] [address] Aug, [facility] [address] [id number] [address] [place] [address], [place] [address] Aug, [facility] [address] [id number] [address] [place] [address], [place] [address] Aug, [facility] [address] [id number] [address] [place] [address], [place] [address] Aug, [facility] [address] [id number] [address] [place] [address], [place] [address] 29 Jul, 2014 [facility] [address] [id number] [address] [place] [address], [place] [address] 29 Jul, 2013 [facility] [address] [id number] [address] [place] [address], [place] [address] 25 Jul, 2013 [facility] [address] [id number] [address] [place] [address], [place] [address] Jul, 2013 [facility] [address] [id number] [address] [place] [address], [place] [address] Jul, 2013 [facility] [address] [id number] [address] [place] [address], [place] [address] Jul, 2013 [facility] [address] [id number] [address] [place] [address], [place] [address] Jul, 2013 [facility] [address] [id number] [address] [place] [address], [place] [address] Jul, 2013 [facility] [address] [id number] [address] [place] [address], [place] [address] Jul, 2013 [facility] [address] [id number] [address] [place] [address], [place] [address] 02 Jul, 2013 [facility] [address] [id number] [address] [place] [address] [place] [address] Jun, [facility] [address] [id number] [facility] [place] [address] Jun, [facility] [address] [id number] [facility] [place] [address] Jun, [facility] [address] [id number] [facility] [place] [address] Jun, [facility] [address] [id number] [facility] [place] [address] Jun, [facility] [address] [id number] [address] [place] [address], [place] [address] Jun, [facility] [address] [id number] [address] [place] [address], [place] [address] Jun, [facility] [address] [id number] [address] [place] [address], [place] [address] Jun, [facility] [address] [id number] [address] [place] [address], [place] [address] Jun, [facility] [address] [id number] [address] [place] [address], [place] [address] Jun, [facility] [address] [id number] [address] [place] [address], [place] [address] Jun, [facility] [address] [id number] [address] [place] [address], [place] [address] Jun, [facility] [address] [id number] [address] [place] [address], [place] [address] May, [facility] [address] [id number] [address] [place] [address], [place] [address] May, [facility] [address] [id number] [address] [place] [address], [place] [address] May, [facility] [address] [id number] [address] [place] [address], [place] [address] May, [facility] [address] [id number] [facility] [place] [address] May, [facility] [address] [id number] [address] [place] [address], [place] [address] May, [facility] [address] [id number] [address] [place] [address], [place] [address] March, [facility] [address] [id number] [address] [place] [address], [place] [address] March, [facility] [address] [id number] [address] [place] [address], [place] [address] March, [facility] [address] [id number] [address] [place] [address], [place] [address] March, [facility] [address] [id number] [address] [place] [address], [place] [address] March, [facility] [address] [id number] [address] [place] [address], [place] [address] March, [facility] [address] [id number] [address] [place] [address], [place] [address] Feb, [facility] [address] [id number] [address] [place] [address], [place] [address] Feb, [facility] [address] [id number] [address] [place] [address], [place] [address] Feb, [facility] [address] [id number] [address] [place] [address], [place] [address] Feb, [facility] [address] [id number] [address] [place] [address], [place] [address] Jan, [facility] [address] [id number] [address] [place] [address], [place] [address] Jan, [facility] [address] [id number] [address] [place] [address], [place] [address] Jan, [facility] [address] [id number] [address] [place] [address], [place] [address] Jan, [facility] [address] [id number] [facility] [place] [address] Jan, [facility] [address] [id number] [address] [place] [address], [place] [address] Jan, [facility] [address] [id number] [address] [place] [address], [place] [address] Jan, [facility] [address] [id number] [address] [place] [address], [place] [address] Jan, [facility] [address] [id number] [address] [place] [address], [place] [address] Jan, [facility] [address] [id number] [address] [place] [address], [place] [address] Jan, [facility] [address] [id number] [address] [place] [address], [place] [address] Jan, [facility] [address] [id number] [address] [place] [address], [place] [address] Jan, [facility] [address] [id number] [address] [place] [address], [place] [address] Dec, [facility] [address] [id number] [address] [place] [address], [place] [address] Dec, [facility] [address] [id number] [address] [place] [address], [place] [address] Dec, [facility] [address] [id number] [address] [place] [address], [place] [address] Dec, [facility] [address] [id number] [address] [place] [address], [place] [address] Dec, [facility] [address] [id number] [address] [place] [address], [place] [address] Dec, [facility] [address] [id number] [address] [place] [address], [place] [address] Nov, [facility] [address] [id number] [address] [place] [address], [place] [address] Nov, [facility] [address] [id number] [address] [place] [address], [place] [address] Oct, [facility] [address] [id number] [address] [place] [address], [place] [address] Oct, [facility] [address] [id number] [address] [place] [address], [place] [address] Oct, [facility] [address] [id number] [address] [place] [address], [place] [address] Oct, [facility] [address] [id number] [address] [place] [address], [place] [address] Oct, [facility] [address] [id number] [address] [place] [address], [place] [address] Oct, [facility] [address] [id number] [address] [place] [address], [place] [address] Sep, [facility] [address] [id number] [address] [place] [address], [place] [address] Sep, [facility] [address] [id number] [address] [place] [address], [place] [address] Sep, [facility] [address] [id number] [address] [place] [address], [place] [address] Sep, [facility] [address] [id number] [address] [place] [address], [place] [address] Aug, [facility] [address] [id number] [address] [place] [address], [place] [address] Aug, [facility] [address] [id number] [address] [place] [address], [place] [address] Aug, [facility] [address] [id number] [address] [place] [address], [place] [address] 17 Jul, 2013 [facility] [address] [id number] [address] [place] [address], [place] [address] 14 Jul, 2013 [facility] [address] [id number] [address] [place] [address], [place] [address] Jul, [facility] [address] [id number] [address] [place] [address], [place] [address] Jun, [facility] [address] [id number] [address] [place] [address], [place] [address] Jun, [facility] [address] [id number] [address] [place] [address], [place] [address] Jun, [facility] [address] [id number] [address] [place] [address], [place] [address] Apr, [facility] [address] [id number] [address] [place] [address], [place] [address] Apr, [facility] [address] [id number] [address] [place] [address], [place] [address] March, [facility] [address] [id number] [address] [place] [address], [place] [address] March, [facility] [address] [id number] [address] [place] [address], [place] [address] March, [facility] [address] [id number] [address] [place] [address], [place] [address] March, [facility] [address] [id number] [address] [place] [address], [place] [address] Feb, [facility] [address] [id number] [address] [place] [address], [place] [address] Jan, [facility] [address] [id number] [address] [place] [address], [place] [address] Dec, [facility] [address] [id number] [address] [place] [address], [place] [address] Dec, [facility] [address] [id number] [address] [place] [address], [place] [address] Dec, [facility] [address] [id number] [address] [place] [address], [place] [address] Nov, [facility] [address] [id number] [address] [place] [address], [place] [address] Oct, [facility] [address] [id number] [address] [place] [address], [place] [address] Oct, [facility] [address] [id number] [address] [place] [address], [place] [address] Sep, [facility] [address] [id number] [address] [place] [address], [place] [address] Sep, [facility] [address] [id number] [address] [place] [address], [place] [address] Sep, [facility] [address] [id number] [address] [place] [address], [place] [address] Sep, [facility] [address] [id number] [address] [place] [address], [place] [address] Sep, [facility] [address] [id number] [address] [place] [address], [place] [address] Sep, [facility] [address] [id number] [address] [place] [address], [place] [address] Sep, [facility] [address] [id number] [address] [place] [address], [place] [address] Aug, [facility] [address] [id number] [address] [place] [address], [place] [address] Aug, [facility] [address] [id number] [address] [place] [address], [place] [address] Aug, [facility] [address] [id number] [address] [place] [address], [place] [address] Aug, [facility] [address] [id number] [address] [place] [address], [place] [address] Aug, [facility] [address] [id number] [address] [place] [address], [place] [address] Aug, [facility] [address] [id number] [address] [place] [address], [place] [address] Aug, [facility] [address] [id number] [address] [place] [address], [place] [address] Aug, [facility] [address] [id number] [address] [place] [address], [place] [address] Jul, [facility] [address] [id number] [address] [place] [address], [place] [address] Jul, [facility] [address] [id number] [address] [place] [address], [place] [address] Jun, [facility] [address] [id number] [address] [place] [address], [place] [address] May, [facility] [address] [id number] [address] [place] [address], [place] [address] Apr, [facility] [address] [id number] [address] [place] [address], [place] [address] Apr, [facility] [address] [id number] [address] [place] [address], [place] [address] Apr, [facility] [address] [id number] [address] [place] [address], [place] [address] March, [facility] [address] [id number] [address] [place] [address], [place] [address] March, [facility] [address] [id number] [address] [place] [address], [place] [address] March, [facility] [address] [id number] [address] [place] [address], [place] [address] March, [facility] [address] [id number] [address] [place] [address], [place] [address] March, [facility] [address] [id number] [address] [place] [address], [place] [address] March, [facility] [address] [id number] [address] [place] [address], [place] [address] March, [facility] [address] [id number] [address] [place] [address], [place] [address] Jan, [facility] [address] [id number] [address] [place] [address], [place] [address] Jan, [facility] [address] [id number] [address] [place] [address], [place] [address] Jan, [facility] [address] [id number] [address] [place] [address], [place] [address] Jan, [facility] [address] [id number] [address] [place] [address], [place] [address] Jan, [facility] [address] [id number] [address] [place] [address], [place] [address] 08 Dec, 2011 [facility] [address] [id number] [address] [place] [address], [place] [address] Dec, [facility] [address] [id number] [address] [place] [address], [place] [address] Nov, [facility] [address] [id number] [address] [place] [address], [place] [address] Nov, [facility] [address] [id number] [address] [place] [address], [place] [address] Nov, [facility] [address] [id number] [address] [place] [address], [place] [address] Nov, [facility] [address] [id number] [address] [place] [address], [place] [address] Oct, [facility] [address] [id number] [address] [place] [address], [place] [address] Oct, [facility] [address] [id number] [address] [place] [address], [place] [address] 14 Sep, 2011 [facility] [address] [id number] [address] [place] [address], [place] [address] 10 Sep, 2011 [facility] [address] [id number] [address] [place] [address], [place] [address] 10 Sep, 2011 [facility] [address] [id number] [address] [place] [address], [place] [address] 11 May, 2011 [facility] [address] [id number] [address] [place] [address], [place] [address] Nov, [facility] [address] [id number] [address] [place] [address], [place] [address] 29 Oct, 2010 [facility] [address] [id number] [address] [place] [address], [place] [address] 14 Oct, 2010 [facility] [address] [id number] [address] [place] [address], [place] [address] 08 Oct, 2010 [facility] [address] [id number] [address] [place] [address], [place] [address] 15 Sep, 2010 [facility] [address] [id number] [address] [place] [address], [place] [address] Sep, [facility] [address] [id number] [address] [place] [address], [place] [address] Aug, [facility] [address] [id number] [address] [place] [address], [place] [address] March, [facility] [address] [id number] [address] [place] [address], [place] [address] 17 Oct, 2009 [facility] [address] [id number] [address] [place] [address], [place] [address] 17 Oct, 2009 [facility] [address] [id number] [address] [place] [address], [place] [address] 10 Oct, 2009 [facility] [address] [id number] [address] [place] [address], [place] [address] Oct, [facility] [address] [id number] [address] [place] [address], [place] [address] Sep, [facility] [address] [id number] [address] [place] [address], [place] [address] Sep, [facility] [address] [facility] [id number] [address] [place] [address] Sep, [facility] [address] [facility] [id number] [address] [place] [address] Aug, [facility] [address] [facility] [id number] [address] [place] [address] Aug, [facility] [address] [facility] [id number] [address] [place] [address] Aug, [facility] [address] [facility] [id number] [address] [place] [address] Jan, IMMUNIZATIONS Vaccine Route Administration Date Status FLUARIX QUAD (3 AND UP) 2016 IM Intramuscular Sep 06, 2017 Ad ministered SOCIAL HISTORY Never Assessed REASON FOR VISIT Diabetes---DBennettRN, weight loss and fatigue, "whole body hurts", chronic back pain PLAN OF CARE Activity Details Follow Up 3 Months Reason: VITAL SIGNS Height 69 in 2017-09-06 Weight 172 lbs 2017-09-06 Temperature 98.1 degrees Fahrenheit 2017-09-06 Heart Rate 88 bpm 2017-09-06 Respiratory Rate 20 2017-09-06 BMI 25.40 kg/m2 2017-09-06 Blood pressure systolic 110 mmHg 2017-09-06 Blood pressure diastolic 66 mmHg 2017-09-06 MEDICATIONS Medication Instructions Dosage Frequency Start Date End Date Duration S tatus NovoLog Flexpen 100 UNIT/ML Subcutaneous 3 times a day wit meals 20 units Jan, Active Lomotil 2.5-0.025 MG Orally Four times a day 1 tablet as needed 6h 24 Feb, 2017 Active Welchol 625 MG Orally Once a day 1 tablet 24h 21 Apr, 2017 Active Proventil HFA 108 (90 Base) MCG/ACT Inhalation every 4 hrs 2 puffs as needed 4h 13 May, 2015 Active Levemir FlexTouch 100 unit/mL (3 mL) Subcutaneous 2 times a day 120units bid 12h Jan, Active Oxybutynin Chloride 5 mg Orally Twice a day 1 tablet 12h Active Effexor XR 75 mg Orally Once a day take 1 capsule (75 m g) by oral route once daily with food 24h Jan, Active Dicyclomine HCl 20 mg Orally Once a day 1 tablet 24h Active Omeprazole 20 MG TAKE ONE CAPSULE BY MOUTH TWICE DAILY 30 Active Tramadol HCl 50 mg Orally 4 times a day TAKE ONE TABLET BY MOUTH EVERY 4 HOURS NEEDED 6h 28 days Active MetFORMIN HCl ER 500 mg Orally Once a day 1 tablet 24h Active RESULTS Name Result Date Reference Range A1C (IN HOUSE) 2017-09-06 A1C IN HOUSE >14 4.3 - 5.6 % Previous A1c 13.6 Lot [id number] Exp date 05/30 MICROALBUMIN, URINE (IN HOUSE) 2017-09-06 MICROALBUMIN abnormal Lot # [id number] Exp date 08/11/18 Clarity clear Color yellow ALB 80mg/L CRE 100mg/dL A:C (IN HOUSE) 30-300mg/g Control + Control Lot # Exp MICROALBUMIN/CREATININE RATIO, URINE 2017-09-06 Creatinine, Urine 35.5 Not Estab. Microalbumin, Urine 41.2 Not Estab. Microalb/Creat Ratio 116.1 0.0-30.0 CMP 2017-09-06 Glucose, Serum 419 65-99 BUN 21 8-27 Creatinine, Serum 0.89 0.76-1.27 eGFR If NonAfricn Am 89 >59 eGFR If Africn Am 103 >59 BUN/Creatinine Ratio 24 10-24 Sodium, Serum 130 134-144 Potassium, Serum 4.8 3.5-5.2 Chloride, Serum 89 96-106 Carbon Dioxide, Total 24 18-29 Calcium, Serum 9.5 8.6-10.2 Protein, Total, Serum 7.2 6.0-8.5 Albumin, Serum 3.9 3.6-4.8 Globulin, Total 3.3 1.5-4.5 A/G Ratio 1.2 1.2-2.2 Bilirubin, Total 0.3 0.0-1.2 Alkaline Phosphatase, S 202 39-117 AST (SGOT) 22 0-40 ALT (SGPT) 44 0-44 CBC 2017-09-06 WBC 9.0 3.4-10.8 RBC 4.46 4.14-5.80 Hemoglobin 13.0 12.6-17.7 Hematocrit 40.4 37.5-51.0 MCV 91 79-97 MCH 29.1 26.6-33.0 MCHC 32.2 31.5-35.7 RDW 13.8 12.3-15.4 Platelets 427 150-379 Neutrophils 46 Not Estab. Lymphs 44 Not Estab. Monocytes 9 Not Estab. Eos 1 Not Estab. Basos 0 Not Estab. Neutrophils (Absolute) 4.2 1.4-7.0 Lymphs (Absolute) 3.9 0.7-3.1 Monocytes(Absolute) 0.8 0.1-0.9 Eos (Absolute) 0.1 0.0-0.4 Baso (Absolute) 0.0 0.0-0.2 Immature Granulocytes 0 Not Estab. Immature Grans (Abs) 0.0 0.0-0.1 THYROID ANALYZER 2017-09-06 TSH 5.240 0.450-4.500 T4,Free (Direct) 1.39 0.82-1.77 Thyroid Peroxidase (TPO) Ab 15 0-34 Interpretive Comment PROCEDURES Procedure Date Ordered Result Body Site LAB NOT BILLED BY [facility] Sep 06, 2017 GLYCATED HEMOGLOBIN TEST Sep 06, 2017 VENIPUNCT, ROUTINE* Sep 06, 2017 MICROALBUMIN, SEMIQUANT Sep 06, 2017 SINGLE IMMUNIZATION ADMIN Sep 06, 2017 FLUARIX QUAD (3 AND UP) 2016Sep 06, 2017 INSTRUCTIONS MEDICATIONS ADMINISTERED No Known Medications MEDICAL [...]
--- OUTSIDE RECORDS SUMMARY | 2020-06-13 16:32 | XMS REPORT ---
Author Author Jah GIBBS Organization [facility] [place] Address [address] [place] [address] Care Team Providers Care Executive Receptionist Name Role Phone GIBBS CHLOE Unavailable PROBLEMS Type Condition ICD9-CM Code [id number] Code Onset Dates Condition S tatus SNOMED Code Problem Overactive bladder N32.81 Active 2 53227694 Problem Gastroesophageal reflux disease without esophagitis K21.9 Active 704435634 Problem Mixed hyperlipidemia E78.2 Active 249837046 Problem Type 2 diabetes mellitus without complications E11 .9 Active 817638027 Problem alf current use of insulin Z79.4 Active 711149496 Problem Irritable bowel syndrome with diarrhea K58.0 Active 606185722 Problem Functional diarrhea K59.1 Active 59527146 Problem Diabetes mellitus E11.9 Active 73 117831 Problem Gastroesophageal reflux disease with esophagitis K 21.0 Active 705031086 Problem Chronic pain G89.29 Active 9104395 1 Problem Insomnia G47.00 Active 846654984 Problem HTN (hypertension) I10 Active 3 4500847 Problem Neuropathy G62.9 Active 726148924 Problem Depression F32.9 Active 18337747 Problem Hypothyroid E03.9 Active 32853948 Problem GERD (gastroesophageal reflux disease) K21.9 Active 587655272 ALLERGIES No Information SOCIAL HISTORY Never Assessed [...]
--- OUTSIDE RECORDS SUMMARY | 2020-06-13 16:32 | XMS REPORT ---
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 Teacher Name Role Phone CHLOE Arita Unavailable PROBLEMS Type Condition ICD9-CM Code DII27-BS Code Onset Dates Condition S tatus SNOMED Code Problem Overactive bladder N32.81 Active 2 54932567 Problem Gastroesophageal reflux disease with esophagitis K 21.0 Active 162944619 Problem Mixed hyperlipidemia E78.2 Active 742824952 Problem Current non-adherence to medical treatment Z91.19 Active 4990894 Problem Pulmonary emphysema, unspecified emphysema type J4 3.9 Active 92122787 Problem USP current use of insulin Z79.4 Active 665165586 Problem Irritable bowel syndrome with diarrhea K58.0 Active 981828237 Problem Essential (primary) hypertension I10 Active 57785566 Problem Type 2 diabetes mellitus with hyperglycemia E11.65 Active 25050750 Problem Neuropathy G62.9 Active 376803510 Problem Hypothyroid E03.9 Active 51725393 Problem Thrombocytosis D47.3 Active 04811 09 Problem Insomnia G47.00 Active 136139880 Problem Chronic pain G89.29 Active 1855567 1 Problem Depression F32.9 Active 71775571 ALLERGIES No Information ENCOUNTERS Encounter Location Date Diagnosis [facility] [address] [facility] [id number] [address] [place] [address] March, [facility] [address] [facility] [id number] [address] [place] [address] Feb, Chronic pain G89.29 [facility] [address] [facility] [id number] [address] [place] [address] Feb, Type 2 diabetes mellitus wit h hyperglycemia E11.65 and Skin lesion of scalp L98.9 [facility] [address] [facility] [id number] [address] [place] [address] Feb, [place] [address] [facility] [id number] [address] [place] [address] Jan, Type 2 diabetes mellitus wit h hyperglycemia E11.65 ; 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 ; Essential (primary) hypertension I10 ; Pulmonary emphysema, unspecified emphysema type J43.9 ; Chronic pain G89.29 ; Controlled substance agreement signed Z79.899 ; Hypothyroid E03.9 ; Neuropathy G62.9 ; Gastroesophageal reflux disease with esophagitis K21.0 ; Overactive bladder N32.81 ; Depression F32.9 and Irritable bowel syndrome with diarrhea K58.0 [place] [address] [place] [id number] [address] [place] [address] Jan, [place] [address] [facility] [id number] [address] [place] [address] Jan, Controlled substance agreeme nt signed Z79.899 [place] [address] [place] [id number] [address] [place] [address] Dec, Type 2 diabetes mellitus wit h hyperglycemia E11.65 ; Controlled substance agreement signed Z79.899 ; USP current use of insulin Z79.4 ; Essential (primary) hypertension I10 ; Hypothyroid E03.9 ; Neuropathy G62.9 ; Depression F32.9 ; Mixed hyperlipidemia E78.2 ; Irritable bowel syndrome with diarrhea K58.0 ; Gastroesophageal reflux disease with esophagitis K21.0 ; Thrombocytosis D47.3 ; Current non-adherence to medical treatment Z91.19 and Overweight (BMI 25.0-29.9) E66.3 [place] [address] [facility] [id number] [address] [place] [address] Dec, Controlled substance agreeme nt signed Z79.899 [place] [address] [place] [id number] [address] [place] [address] Nov, Type 2 diabetes mellitus wit h hyperglycemia E11.65 and Current non- adherence to medical treatment Z91.19 [place] [address] [place] [id number] [address] [place] [address] Nov, [facility] [address] [id number] [address] [place] [address] Nov, Chronic pain G89.29 [facility] [address] [id number] [address] [place] [address] Nov, [facility] [address] [facility] [id number] [address] [place] [address] Nov, Hypothyroid E03.9 [facility] [address] [id number] [address] [place] [address] Nov, Hypothyroid E03.9 [facility] [address] [facility] [id number] [address] [place] [address] Nov, Pulmonary emphysema, unspeci fied emphysema type J43.9 and Irritable bowel syndrome with diarrhea K58.0 [facility] [address] [facility] [id number] [address] [place] [address] Oct, [facility] [address] [facility] [id number] [address] [place] [address] Oct, [facility] [address] [facility] [id number] [address] [place] [address] Oct, [facility] [address] [facility] [id number] [address] [place] [address] Oct, [facility] [address] [facility] [id number] [address] [place] [address] Oct, Chronic pain G89.29 [facility] [address] [facility] [id number] [address] [place] [address] Oct, Diabetes mellitus E11.9 ; De pression F32.9 ; Mixed hyperlipidemia E78.2 ; Hypotension, unspecified hypotension type I95.9 ; Pulmonary emphysema, unspecified emphysema type J43.9 and Weight loss, unintentional R63.4 [facility] [address] [facility] [id number] [address] [place] [address] Oct, Chronic pain G89.29 [facility] [address] [place] [id number] [address] [place] [address] Sep, Chronic pain G89.29 [facility] [address] [place] [id number] [place] [address] Sep, Hypothyroid E03.9 and Diabet es mellitus E11.9 [place] [address] [address] Aug, Type 2 diabetes mellitus wit h hyperglycemia E11.65 ; USP current use of insulin Z79.4 ; Essential (primary) hypertension I10 ; Hypothyroid E03.9 ; Neuropathy G62.9 ; Chronic pain G89.29 ; Mixed hy perlipidemia E78.2 and Encounter for immunization Z23 [place] [id number] [address] Aug, Chronic pain G89.29 [place] [address] [address] Aug, Overactive bladder N32.81 ; Diabetes mellitus E11.9 and Chronic pain G89.29 [place] [address] [address] Jul, [place] [address] [address] Jun, [place] [address] [address] Jun, [place] [address] [place] [id number] [address] [place] [address] Jun, Hypothyroid E03.9 [facility] [address] [place] [id number] [address] [place] [address] Jun, Diabetes mellitus E11.9 ; Hy pothyroid E03.9 ; Neuropathy G62.9 ; Chronic pain G89.29 and Neck mass R22.1 [place] [address] [place] [id number] [address] [place] [address] Apr, [facility] [address] [facility] [id number] [address] [place] [address] Apr, Acute cystitis without hemat uria N30.00 [facility] [address] [facility] [id number] [address] [place] [address] March, [facility] [address] [facility] [id number] [address] [place] [address] March, [facility] [address] [facility] [id number] [address] [place] [address] March, Near syncope R55 [facility] [address] [place] [id number] [address] [place] [address] Feb, [facility] [address] [place] [id number] [address] [place] [address] Feb, Chronic pain G89.29 [facility] [address] [place] [id number] [address] [place] [address] Feb, [facility] [address] [facility] [id number] [address] [place] [address] Feb, [facility] [address] [place] [id number] [address] [place] [address] Jan, Chronic pain G89.29 [facility] [address] [place] [id number] [address] [place] [address] Jan, [facility] [address] [place] [id number] [address] [place] [address] Jan, [facility] [address] [place] [id number] [address] [place] [address] Jan, Diabetes mellitus E11.9 ; Hy pothyroid E03.9 ; GERD (gastroesophageal reflux disease) K21.9 ; Insomnia G47.00 ; Functional diarrhea K59.1 ; Neuropathy G62.9 ; Depression F32.9 ; Chronic pain G89.29 ; Irritable bowel syndrome with diarrhea K58.0 ; Overactive bladder N32.81 ; Mixed hyperlipidemia E78.2 and Bronchitis J40 [facility] [address] [facility] [id number] [address] [place] [address] Dec, [facility] [address] [facility] [id number] [address] [place] [address] Dec, [facility] [address] [facility] [id number] [address] [place] [address] Dec, [facility] [address] [facility] [id number] [address] [place] [address] Dec, [facility] [address] [facility] [id number] [address] [place] [address] Dec, Chronic pain G89.29 [facility] [address] [facility] [id number] [address] [place] [address] Dec, [facility] [address] [place] [id number] [address] [place] [address] Dec, [facility] [address] [facility] [id number] [address] [place] [address] Dec, Type 2 diabetes mellitus wit h foot ulcer E11.621 [facility] [address] [place] [id number] [address] [place] [address] 17 Dec, 2016 Type 2 diabetes mellitus wit h foot ulcer E11.621 [facility] [id number] [place] [address] 14 Dec, 2016 HTN (hypertension) I10 ; Dep ression F32.9 ; Type 2 diabetes mellitus with foot ulcer E11.621 ; Functional diarrhea K59.1 ; Irritable bowel syndrome with diarrhea K58.0 ; Chronic pain G89.29 ; Insomnia G47.00 ; Overactive bladder N32.81 ; Mixed hyperlipidemia E78.2 ; Gastroesophageal reflux disease with esophagitis K21.0 and Acquired hypothyroidism E03.9 [facility] [address] [place] [id number] [address] [place] [address] Nov, [facility] [address] [address] Oct, [place] [address] [address] Oct, [place] [address] [address] Oct, [place] [address] [address] Sep, Functional diarrhea K59.1 ; HTN (hypertension) I10 ; Diabetes mellitus E11.9 ; Depression F32.9 ; Overactive bladder N32.81 ; Mixed hyperlipidemia E78.2 ; Gastroesophageal reflux disease without esophagitis K21.9 ; Chronic pain G89.29 ; Insomnia G47.00 and Acquired hypothyroidism E03.9 [place] [address] [address] Sep, [place] [address] [address] 11 Aug, 2016 Encounter for immunization Z 23 [place] [address] [address] 06 Aug, 2016 [place] [address] [address] 09 Jul, 2016 [place] [address] [address] Jun, Type 2 diabetes mellitus wit hout complications E11.9 ; HTN (hypertension) I10 ; Hypothyroid E03.9 ; Neuropathy G62.9 ; Depression F32.9 ; Chronic pain G89.29 ; GERD (gastroesophageal reflux disease) K21.9 ; Insomnia G47.00 ; Overactive bladder N32.81 ; Mixed hyperlipidemia E78.2 ; Diarrhea of infectious origin A09 and Environmental allergies Z91.09 [place] [address] [address] Apr, [place] [address] [address] March, Hypothyroidism, unspecified E03.9 and Mixed hyperlipidemia E78.2 [place] [address] [address] March, Diabetes mellitus E11.9 ; HT N (hypertension) I10 ; Hypothyroid E03.9 ; Depression F32.9 ; Overactive bladder N32.81 ; Other chronic pain G89.29 ; Lumbago with sciatica, unspecified side M54.40 ; Environmental allergies Z91.09 and Gastroesophageal reflux disease, esophagitis presence not specified K21.9 [place] [address] [address] March, [place] [address] [address] Jan, HTN (hypertension) I10 ; Hyp othyroid E03.9 ; Neuropathy G62.9 ; Diabetes mellitus E11.9 ; Chronic pain G89.29 ; GERD (gastroesophageal reflux disease) K21.9 ; Overactive bladder N32.81 and Depression F32.9 [place] [address] [address] Dec, Ear pain, left H92.02 ; HTN (hypertension) I10 ; Hypothyroid E03.9 ; Neuropathy G62.9 ; Diabetes mellitus E11.9 ; Depression F32.9 ; GERD (gastroesophageal reflux disease) K21.9 ; Insomnia G47.00 and Overactive bladder N32.81 [place] [address] [place] [id number] [address] [place] [address] Nov, Overactive bladder N32.81 an d Chronic pain G89.29 [place] [address] [address] Nov, Kidney failure N19 [place] [address] [address] Nov, [place] [address] [address] Nov, [place] [address] [address] Nov, Diabetes mellitus E11.9 ; De pression F32.9 ; Chronic pain G89.29 ; GERD (gastroesophageal reflux disease) K21.9 ; Insomnia G47.00 ; HTN (hypertension) I10 ; Hypothyroid E03.9 ; COPD (chronic obstructive pulmonary disease) J44.9 ; Bladder incontinence R32 and Incontinence R32 [address] [address] Sep, Type 2 diabetes mellitus wit h foot ulcer E11.621 and Chromosomal abnormality, 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 [address] Sep, [address] [address] Aug, [address] [address] Aug, [address] [address] Aug, Encounter for immunization Z 23 ; HTN (hypertension) I10 ; Hypothyroid E03.9 ; Neuropathy G62.9 ; Diabetes mellitus E11.9 ; Depression F32.9 ; Chronic pain G89.29 ; GERD (gastroesophageal reflux disease) K21.9 ; Insomnia G47.00 and COPD (chronic obstructive pulmonary disease) J44.9 [place] [address] [address] Jun, [address] [address] Jun, [address] [address] May, Essential hypertension, ivis gn 401.1 ; Unspecified hypothyroidism 244.9 ; Insomnia, unspecified 780.52 ; Shortness of breath 786.05 ; Depression 311 ; COPD (chronic obstructive pulmonary disease) 496 ; GERD (gastroesophageal reflux disease) 530.81 and Diabetes 1.5, 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 [facility] [address] [place] [id number] [address] [place] [address] May, [facility] [address] [facility] [id number] [address] [place] [address] May, [facility] [address] [place] [id number] [place] [address] May, Shortness of breath 786.05 ; Essential hypertension, benign 401.1 ; Diabetes mellitus 250.00 ; Hyperlipidemia 272.4 ; Hypothyroid 244.9 ; Insomnia 780.52 and Cough 786.2 [facility] [address] [place] [id number] [address] [place] [address] Apr, [facility] [address] [address] March, Shortness of breath 786.05 ; Nausea with vomiting 787.01 ; Essential hypertension, benign 401.1 ; Diabetes mellitus 250.00 ; Hyperlipidemia 272.4 and Hypothyroid 244.9 [facility] [address] [place] [id number] [address] [place] [address] Feb, [facility] [address] [place] [id number] [address] [place] [address] Feb, [facility] [address] [place] [id number] [address] [place] [address] Jan, [facility] [address] [place] [id number] [address] [place] [address] Jan, [facility] [address] [place] [id number] [address] [place] [address] Jan, [facility] [address] [place] [id number] [address] [place] [address] Jan, [facility] [address] [place] [id number] [address] [place] [address] Jan, [facility] [address] [id number] [address] [place] [address], [place] [address] 05 Jan, 2014 [facility] [address] [id number] [address] [place] [address], [place] [address] Jan, 2014 [facility] [address] [id number] [address] [place] [address], [place] [address] Jan, 2014 [facility] [address] [id number] [address] [place] [address], [place] [address] Jan, 2014 [facility] [address] [id number] [address] [place] [address], [place] [address] Jan, [facility] [address] [id number] [address] [place] [address], [place] [address] Dec, 2014 [facility] [address] [id number] [address] [place] [address], [place] [address] Dec, 2014 [facility] [address] [id number] [address] [place] [address], [place] [address] Dec, 2014 [facility] [address] [id number] [address] [place] [address], [place] [address] Dec, 2014 [facility] [address] [id number] [address] [place] [address], [place] [address] Dec, 2014 [facility] [address] [id number] [address] [place] [address], [place] [address] Dec, 2014 [facility] [address] [id number] [address] [place] [address], [place] [address] Dec, 2014 [facility] [address] [id number] [address] [place] [address], [place] [address] Dec, 2014 [facility] [address] [id number] [address] [place] [address], [place] [address] Dec, 2014 [facility] [address] [id number] [address] [place] [address] Dec, 2014 [facility] [address] [id number] [address] [place] [address], [place] [address] Oct, [facility] [address] [id number] [address] [place] [address], [place] [address] Oct, [facility] [address] [id number] [address] [place] [address], [place] [address] Oct, [facility] [address] [id number] [address] [place] [address], [place] [address] Oct, [facility] [address] [id number] [address] [place] [address], [place] [address] Oct, [facility] [address] [id number] [address] [place] [address], [place] [address] Oct, [facility] [address] [id number] [address] [place] [address], [place] [address] Oct, [facility] [address] [id number] [address] [place] [address], [place] [address] Oct, [facility] [address] [id number] [address] [place] [address], [place] [address] Oct, [facility] [address] [id number] [address] [place] [address], [place] [address] Oct, [facility] [address] [id number] [address] [place] [address], [place] [address] Oct, [facility] [address] [id number] [address] [place] [address], [place] [address] Oct, [facility] [address] [id number] [address] [place] [address], [place] [address] Oct, [facility] [address] [id number] [address] [place] [address], [place] [address] Oct, [facility] [address] [id number] [address] [place] [address], [place] [address] Sep, [facility] [address] [id number] [address] [place] [address], [place] [address] Sep, [facility] [address] [id number] [address] [place] [address], [place] [address] Sep, [facility] [address] [id number] [address] [place] [address], [place] [address] Sep, [facility] [address] [id number] [address] [place] [address], [place] [address] Sep, [facility] [address] [id number] [address] [place] [address], [place] [address] Sep, [facility] [address] [id number] [address] [place] [address], [place] [address] Sep, [facility] [address] [id number] [address] [place] [address], [place] [address] Sep, [facility] [address] [id number] [address] [place] [address], [place] [address] Sep, [facility] [address] [id number] [address] [place] [address], [place] [address] Aug, [facility] [address] [id number] [address] [place] [address], [place] [address] Aug, [facility] [address] [id number] [address] [place] [address], [place] [address] Aug, [facility] [address] [id number] [address] [place] [address], [place] [address] Aug, [facility] [address] [id number] [address] [place] [address], [place] [address] 16 Aug, 2014 [facility] [address] [id number] [address] [place] [address], [place] [address] Aug, [facility] [address] [id number] [address] [place] [address], [place] [address] Aug, [facility] [address] [id number] [address] [place] [address], [place] [address] Aug, [facility] [address] [id number] [address] [place] [address], [place] [address] Aug, [facility] [address] [id number] [address] [place] [address], [place] [address] Jul, 2013 [facility] [address] [id number] [address] [place] [address], [place] [address] Jul, [facility] [address] [id number] [address] [place] [address], [place] [address] Jul, [facility] [address] [id number] [address] [place] [address], [place] [address] Jul, 2013 [facility] [address] [id number] [address] [place] [address], [place] [address] Jul, [facility] [address] [id number] [address] [place] [address], [place] [address] Jul, [facility] [address] [id number] [address] [place] [address], [place] [address] Jul, [facility] [address] [id number] [address] [place] [address], [place] [address] Jul, [facility] [address] [id number] [address] [place] [address], [place] [address] Jul, [facility] [address] [id number] [address] [place] [address], [place] [address] Jul, [facility] [address] [id number] [address] [place] [address], [place] [address] Jun, [facility] [address] [id number] [address] [place] [address], [place] [address] Jun, [facility] [address] [id number] [address] [place] [address], [place] [address] Jun, [facility] [address] [id number] [address] [place] [address], [place] [address] Jun, [facility] [address] [id number] [address] [place] [address], [place] [address] Jun, [facility] [address] [id number] [address] [place] [address], [place] [address] Jun, [facility] [address] [id number] [facility] [place] [address] Jun, [facility] [address] [id number] [address] [place] [address], [place] [address] Jun, [facility] [address] [id number] [address] [place] [address], [place] [address] Jun, [facility] [address] [id number] [address] [place] [address], [place] [address] Jun, [facility] [address] [id number] [address] [place] [address], [place] [address] Jun, [facility] [address] [id number] [address] [place] [address], [place] [address] Jun, [facility] [address] [id number] [address] [place] [address], [place] [address] May, [facility] [address] [id number] [address] [place] [address], [place] [address] May[place] [facility] [facility] [address] [id number] [address] [place] [address], [place] [address] May, [facility] [address] [id number] [address] [place] [address], [place] [address] May, [facility] [address] [id number] [address] [place] [address], [place] [address] May, [facility] [address] [id number] [address] [place] [address], [place] [address] May, [facility] [address] [id number] [address] [place] [address], [place] [address] March, [facility] [address] [id number] [address] [place] [address], [place] [address] March, [facility] [address] [id number] [address] [place] [address], [place] [address] March, [facility] [address] [id number] [facility] [place] [address] March, [facility] [address] [id number] [facility] [place] [address] March, [facility] [address] [id number] [facility] [place] [address] March, [facility] [address] [id number] [address] [place] [address], [place] [address] Feb, [facility] [address] [id number] [address] [place] [address], [place] [address] Feb, [facility] [address] [id number] [address] [place] [address], [place] [address] Feb, [facility] [address] [id number] [address] [place] [address], [place] [address] Feb, [facility] [address] [id number] [address] [place] [address], [place] [address] Jan, [facility] [address] [id number] [address] [place] [address], [place] [address] Jan, [facility] [address] [id number] [address] [place] [address], [place] [address] Jan, [facility] [address] [id number] [address] [place] [address], [place] [address] Jan, [facility] [address] [id number] [address] [place] [address], [place] [address] Jan, [facility] [address] [id number] [address] [place] [address], [place] [address] Jan, [facility] [address] [id number] [address] [place] [address], [place] [address] Jan, [facility] [address] [id number] [address] [place] [address], [place] [address] Jan, [facility] [address] [id number] [address] [place] [address], [place] [address] Jan, [facility] [address] [id number] [facility] [place] [address] Jan, [facility] [address] [id number] [address] [place] [address], [place] [address] Jan, [facility] [address] [id number] [address] [place] [address], [place] [address] Jan, [facility] [address] [id number] [address] [place] [address], [place] [address] Dec, [facility] [address] [id number] [address] [place] [address], [place] [address] Dec, [facility] [address] [id number] [address] [place] [address], [place] [address] Dec, [facility] [address] [id number] [address] [place] [address], [place] [address] Dec, [facility] [address] [id number] [address] [place] [address], [place] [address] Dec, [facility] [address] [id number] [address] [place] [address], [place] [address] Dec, [facility] [address] [id number] [address] [place] [address], [place] [address] Nov, [facility] [address] [id number] [address] [place] [address], [place] [address] Nov, [facility] [address] [id number] [address] [place] [address], [place] [address] Oct, [facility] [address] [id number] [address] [place] [address], [place] [address] Oct, [facility] [address] [id number] [address] [place] [address], [place] [address] Oct, [facility] [address] [id number] [address] [place] [address], [place] [address] Oct, [facility] [address] [id number] [address] [place] [address], [place] [address] Oct, [facility] [address] [id number] [address] [place] [address], [place] [address] Oct, [facility] [address] [id number] [address] [place] [address], [place] [address] Sep, [facility] [address] [id number] [address] [place] [address], [place] [address] Sep, [facility] [address] [id number] [address] [place] [address], [place] [address] Sep, [facility] [address] [id number] [address] [place] [address], [place] [address] Sep, [facility] [address] [id number] [address] [place] [address], [place] [address] Aug, [facility] [address] [id number] [address] [place] [address], [place] [address] Aug, [facility] [address] [id number] [address] [place] [address], [place] [address] Aug, [facility] [address] [id number] [address] [place] [address], [place] [address] 17 Jul, 2013 [facility] [address] [id number] [address] [place] [address], [place] [address] 14 Jul, 2013 [facility] [address] [id number] [address] [place] [address], [place] [address] 04 Jul, 2013 [facility] [address] [id number] [address] [place] [address], [place] [address] Jun, [facility] [address] [id number] [address] [place] [address], [place] [address] Jun, [facility] [address] [id number] [address] [place] [address], [place] [address] Jun, [facility] [address] [id number] [address] [place] [address], [place] [address] Apr, [facility] [address] [id number] [address] [place] [address], [place] [address] Apr, [facility] [address] [id number] [address] [place] [address], [place] [address] March, [facility] [address] [id number] [address] [place] [address], [place] [address] March, [facility] [address] [id number] [address] [place] [address], [place] [address] March, [facility] [address] [id number] [address] [place] [address], [place] [address] March, [facility] [address] [id number] [address] [place] [address], [place] [address] Feb, [facility] [address] [id number] [address] [place] [address], [place] [address] Jan, [facility] [address] [id number] [address] [place] [address], [place] [address] Dec, [facility] [address] [id number] [address] [place] [address], [place] [address] Dec, [facility] [address] [id number] [address] [place] [address], [place] [address] Dec, [facility] [address] [id number] [address] [place] [address], [place] [address] Nov, [facility] [address] [id number] [address] [place] [address], [place] [address] Oct, [facility] [address] [id number] [address] [place] [address], [place] [address] Oct, [facility] [address] [id number] [address] [place] [address], [place] [address] Sep, [facility] [address] [id number] [address] [place] [address], [place] [address] Sep, [facility] [address] [id number] [address] [place] [address], [place] [address] 09 Sep, 2012 [facility] [address] [id number] [address] [place] [address], [place] [address] Sep, [facility] [address] [id number] [address] [place] [address], [place] [address] Sep, [facility] [address] [id number] [address] [place] [address], [place] [address] Sep, [facility] [address] [id number] [address] [place] [address], [place] [address] Sep, [facility] [address] [id number] [address] [place] [address], [place] [address] Aug, [facility] [address] [id number] [address] [place] [address], [place] [address] Aug, [facility] [address] [id number] [address] [place] [address], [place] [address] Aug, [facility] [address] [id number] [address] [place] [address], [place] [address] Aug, [facility] [address] [id number] [address] [place] [address], [place] [address] Aug, [facility] [address] [id number] [address] [place] [address], [place] [address] Aug, [facility] [address] [id number] [address] [place] [address], [place] [address] Aug, [facility] [address] [id number] [address] [place] [address], [place] [address] Aug, [facility] [address] [id number] [address] [place] [address], [place] [address] Jul, [facility] [address] [id number] [address] [place] [address], [place] [address] Jul, [facility] [address] [id number] [address] [place] [address], [place] [address] Jun, [facility] [address] [id number] [address] [place] [address], [place] [address] May, [facility] [address] [id number] [address] [place] [address], [place] [address] Apr, [facility] [address] [id number] [address] [place] [address], [place] [address] Apr, [facility] [address] [id number] [address] [place] [address], [place] [address] Apr, [facility] [address] [id number] [address] [place] [address], [place] [address] March, [facility] [address] [id number] [address] [place] [address], [place] [address] March, [facility] [address] [id number] [address] [place] [address], [place] [address] March, [facility] [address] [id number] [address] [place] [address], [place] [address] March, [facility] [address] [id number] [address] [place] [address], [place] [address] March, [facility] [address] [id number] [address] [place] [address], [place] [address] March, [facility] [address] [id number] [address] [place] [address], [place] [address] March, [facility] [address] [id number] [address] [place] [address], [place] [address] Jan, [facility] [address] [id number] [address] [place] [address], [place] [address] Jan, [facility] [address] [id number] [address] [place] [address], [place] [address] Jan, [facility] [address] [id number] [address] [place] [address], [place] [address] Jan, [facility] [address] [id number] [address] [place] [address], [place] [address] Jan, [facility] [address] [id number] [address] [place] [address], [place] [address] Dec, [facility] [address] [id number] [address] [place] [address], [place] [address] Dec, [facility] [address] [id number] [address] [place] [address], [place] [address] Nov, [facility] [address] [id number] [address] [place] [address], [place] [address] Nov, [facility] [address] [id number] [address] [place] [address], [place] [address] Nov, [facility] [address] [id number] [address] [place] [address], [place] [address] Nov, [facility] [address] [id number] [address] [place] [address], [place] [address] Oct, [facility] [address] [id number] [address] [place] [address], [place] [address] Oct, [facility] [address] [id number] [address] [place] [address], [place] [address] 14 Sep, 2011 [facility] [address] [id number] [address] [place] [address], [place] [address] Sep, [facility] [address] [id number] [address] [place] [address], [place] [address] Sep, [facility] [address] [id number] [address] [place] [address], [place] [address] May, [facility] [address] [id number] [address] [place] [address], [place] [address] 20 Nov, 2010 [facility] [address] [id number] [address] [place] [address], [place] [address] 29 Oct, 2010 [facility] [address] [id number] [address] [place] [address], [place] [address] 14 Oct, 2010 [facility] [address] [id number] [address] [place] [address], [place] [address] 08 Oct, 2010 [facility] [address] [id number] [address] [place] [address], [place] [address] 15 Sep, 2010 [facility] [address] [id number] [address] [place] [address], [place] [address] 02 Sep, 2010 [facility] [address] [id number] [address] [place] [address], [place] [address] Aug, [facility] [address] [id number] [address] [place] [address], [place] [address] March, [facility] [address] [id number] [address] [place] [address], [place] [address] Oct, [facility] [address] [id number] [address] [place] [address], [place] [address] 17 Oct, 2009 [facility] [address] [id number] [address] [place] [address], [place] [address] Oct, [facility] [address] [id number] [address] [place] [address], [place] [address] Oct, [facility] [address] [id number] [address] [place] [address], [place] [address] Sep, [facility] [address] [id number] [address] [place] [address], [place] [address] Sep, [facility] [address] [id number] [address] [place] [address], [place] [address] Sep, [facility] [address] [id number] [address] [place] [address], [place] [address] Aug, [facility] [address] [id number] [address] [place] [address], [place] [address] 24 Aug, 2009 [facility] [address] [id number] [address] [place] [address], [place] [address] Aug, [facility] [address] [id number] [address] [place] [address], [place] [address] Jan, IMMUNIZATIONS No Known Immunizations SOCIAL HISTORY Never Assessed REASON FOR VISIT Refill request PLAN OF CARE VITAL SIGNS MEDICATIONS Unknown [...]
[2020-06-13 16:33] LABS: BASOPHILS % (AUTO) 0 % (0-10); EOSINOPHILS % (AUTO) 0 % (0-10); HEMATOCRIT 35 % (40-54); HEMOGLOBIN 11.6 G/DL (13.3-17.7); LYMPHOCYTES # (AUTO) 0.9 X 10^3 (1.0-4.0); LYMPHOCYTES % (AUTO) 6 % (12-44); MEAN CORPUSCULAR HEMOGLOBIN 29 PG (25-34); MEAN CORPUSCULAR HGB CONC 34 G/DL (32-36); MEAN CORPUSCULAR VOLUME 87 FL (80-99); MEAN PLATELET VOLUME 10.3 FL (7.4-10.4); MONOCYTES # (AUTO) 1.2 X 10^3 (0.0-1.0); MONOCYTES % (AUTO) 8 % (0-12); NEUTROPHILS # (AUTO) 12.3 X 10^3 (1.8-7.8); NEUTROPHILS % (AUTO) 85 % (42-75); PLATELET COUNT 336 10^3/uL (130-400); RED CELL DISTRIBUTION WIDTH 13.3 % (10.0-14.5); WHITE BLOOD COUNT 14.5 10^3/uL (4.3-11.0)
--- OUTSIDE RECORDS SUMMARY | 2020-06-13 16:33 | XMS REPORT ---
Author Author Jah Arita Organization [facility] Address [address] [place] [address] Care Team Providers Care Batch Records Clerk Name Role Phone CHLOE Arita Unavailable PROBLEMS Type Condition ICD9-CM Code [id number] Code Onset Dates Condition S tatus SNOMED Code Problem Overactive bladder N32.81 Active 2 91485611 Problem Gastroesophageal reflux disease with esophagitis K 21.0 Active 478436227 Problem Mixed hyperlipidemia E78.2 Active 231407393 Problem Current non-adherence to medical treatment Z91.19 Active 3242842 Problem Pulmonary emphysema, unspecified emphysema type J4 3.9 Active 50624201 Problem care home current use of insulin Z79.4 Active 963505442 Problem Irritable bowel syndrome with diarrhea K58.0 Active 566102344 Problem Essential (primary) hypertension I10 Active 96138719 Problem Type 2 diabetes mellitus with hyperglycemia E11.65 Active 75898269 Problem Neuropathy G62.9 Active 419078946 Problem Hypothyroid E03.9 Active 25126083 Problem Thrombocytosis D47.3 Active 25033 09 Problem Insomnia G47.00 Active 538355313 Problem Chronic pain G89.29 Active 7069414 1 Problem Depression F32.9 Active [id number] ALLERGIES No Information ENCOUNTERS Encounter Location Date Diagnosis [facility] [address] [facility] [id number] [address] [address] Jan, Type 2 diabetes mellitus wit h hyperglycemia E11.65 ; 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 current use of insulin Z79.4 ; Essential (primary) hypertension I10 ; Pulmonary emphysema, unspecified emphysema type J43.9 ; Chronic pain G89.29 ; Controlled substance agreement signed Z79.899 ; Hypothyroid E03.9 ; Neuropathy G62.9 ; Gastroesophageal reflux disease with esophagitis K21.0 ; Overactive bladder N32.81 ; Depression F32.9 and Irritable bowel syndrome with diarrhea K58.0 [place] [address] [id number] [address] [place] [address] Jan, [place] [address] [facility] [id number] [address] [place] [address] Jan, Controlled substance agreeme nt signed Z79.899 [place] [address] [facility] [id number] [address] [place] [id number] 08 Dec, 2017 Type 2 diabetes mellitus wit h hyperglycemia E11.65 ; Controlled substance agreement signed Z79.899 ; 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 current use of insulin Z79.4 ; Essential (primary) hypertension I10 ; Hypothyroid E03.9 ; Neuropathy G62.9 ; Depression F32.9 ; Mixed hyperlipidemia E78.2 ; Irritable bowel syndrome with diarrhea K58.0 ; Gastroesophageal reflux disease with esophagitis K21.0 ; Thrombocytosis D47.3 ; Current non-adherence to medical treatment Z91.19 and Overweight (BMI 25.0-29.9) E66.3 [place] [address] [facility] [id number] [address] [place] [id number] 02 Dec, 2017 Controlled substance agreeme nt signed Z79.899 [place] [address] [facility] [id number] [address] [place] [address] Nov, Type 2 diabetes mellitus wit h hyperglycemia E11.65 and Current non- adherence to medical treatment Z91.19 [place] [address] [facility] [id number] [address] [place] [address] Nov, [place] [address] [facility] [id number] [address] [place] [address] Nov, Chronic pain G89.29 [place] [address] [facility] [id number] [address] [place] [address] Nov, [place] [address] [facility] [id number] [address] [place] [address] Nov, Hypothyroid E03.9 [place] [address] [facility] [id number] [address] [place] [address] Nov, Hypothyroid E03.9 [facility] [address] [facility] [id number] [address] [place] [address] Nov, Pulmonary emphysema, unspeci fied emphysema type J43.9 and Irritable bowel syndrome with diarrhea K58.0 [facility] [address] [facility] [id number] [address] [place] [address] Oct, [facility] [address] [place] [id number] [address] [place] [address] Oct, [facility] [address] [facility] [id number] [address] [place] [address] Oct, [place] [address] [facility] [id number] [place] [address] Oct, [place] [address] [place] [id number] [address] [place] [address] Oct, Chronic pain G89.29 [place] [id number] [place] [address] Oct, Diabetes mellitus E11.9 ; De pression F32.9 ; Mixed hyperlipidemia E78.2 ; Hypotension, unspecified hypotension type I95.9 ; Pulmonary emphysema, unspecified emphysema type J43.9 and Weight loss, unintentional R63.4 [place] [address] [place] [id number] [address] [place] [address] Oct, Chronic pain G89.29 [place] [address] [facility] [id number] [address] [place] [address] Sep, Chronic pain G89.29 [place] [address] [facility] [id number] [address] [place] [address] Sep, Hypothyroid E03.9 and Diabet es mellitus E11.9 [facility] [address] [facility] [id number] [address] [place] [address] Aug, Type 2 diabetes mellitus wit h hyperglycemia E11.65 ; 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 current use of insulin Z79.4 ; Essential (primary) hypertension I10 ; Hypothyroid E03.9 ; Neuropathy G62.9 ; Chronic pain G89.29 ; Mixed hy perlipidemia E78.2 and Encounter for immunization Z23 [facility] [address] [facility] [id number] [address] [place] [address] Aug, Chronic pain G89.29 [facility] [address] [facility] [id number] [address] [place] [address] Aug, Overactive bladder N32.81 ; Diabetes mellitus E11.9 and Chronic pain G89.29 [facility] [address] [facility] [id number] [address] [place] [phone] Jul, [facility] [address] [facility] [id number] [address] [place] [phone] Jun, [facility] [address] [facility] [id number] [address] [place] [phone] Jun, [facility] [address] [facility] [id number] [address] [place] [address] Jun, Hypothyroid E03.9 [facility] [address] [facility] [id number] [address] [place] [address] Jun, Diabetes mellitus E11.9 ; Hy pothyroid E03.9 ; Neuropathy G62.9 ; Chronic pain G89.29 and Neck mass R22.1 [place] [id number] [facility] [id number] [address] [place] [id number] Apr, [facility] [address] [facility] [id number] [address] [place] [address] Apr, Acute cystitis without hemat uria N30.00 [facility] [address] [facility] [id number] [address] [place] [address] March, [facility] [address] [facility] [id number] [address] [place] [address] March, [facility] [address] [facility] [id number] [address] [place] [id number] March, Near syncope R55 [place] [id number] [facility] [id number] [address] [place] [phone] Feb, [facility] [id number] [place] [address] Feb, Chronic pain G89.29 [facility] [address] [facility] [id number] [address] [place] [phone] Feb, [facility] [address] [place] [id number] [address] [place] [address] Feb, [facility] [address] [place] [id number] [address] [place] [address] Jan, Chronic pain G89.29 [facility] [address] [place] [id number] [address] [place] [address] Jan, [facility] [address] [place] [id number] [address] [place] [address] Jan, [facility] [address] [place] [address] Jan, Diabetes mellitus E11.9 ; Hy pothyroid E03.9 ; GERD (gastroesophageal reflux disease) K21.9 ; Insomnia G47.00 ; Functional diarrhea K59.1 ; Neuropathy G62.9 ; Depression F32.9 ; Chronic pain G89.29 ; Irritable bowel syndrome with diarrhea K58.0 ; Overactive bladder N32.81 ; Mixed hyperlipidemia E78.2 and Bronchitis J40 [facility] [address] [place] [id number] [address] [place] [address] Dec, [facility] [address] [place] [id number] [address] [place] [phone] Dec, [facility] [id number] [place] [address] Dec, [facility] [address] [place] [address] Dec, [facility] [address] [place] [id number] [address] [place] [address] Dec, Chronic pain G89.29 [facility] [address] [facility] [id number] [address] [place] [phone] Dec, [facility] [address] [place] [id number] [address] [place] [address] Dec, [facility] [address] [address] Dec, Type 2 diabetes mellitus wit h foot ulcer E11.621 [facility] [address] [place] [id number] [address] [place] [id number] 17 Dec, 2016 Type 2 diabetes mellitus wit h foot ulcer E11.621 [facility] [address] [place] [id number] [address] [place] [address] 14 Dec, 2016 HTN (hypertension) I10 ; Dep ression F32.9 ; Type 2 diabetes mellitus with foot ulcer E11.621 ; Functional diarrhea K59.1 ; Irritable bowel syndrome with diarrhea K58.0 ; Chronic pain G89.29 ; Insomnia G47.00 ; Overactive bladder N32.81 ; Mixed hyperlipidemia E78.2 ; Gastroesophageal reflux disease with esophagitis K21.0 and Acquired hypothyroidism E03.9 [facility] [address] [place] [id number] [address] [place] [phone] Nov, [place] [address] [place] [id number] [address] [place] [address] Oct, [place] [id number] [phone] Oct, [place] [address] [address] Oct, [place] [address] [place] [id number] [address] [place] [address] Sep, Functional diarrhea K59.1 ; HTN (hypertension) I10 ; Diabetes mellitus E11.9 ; Depression F32.9 ; Overactive bladder N32.81 ; Mixed hyperlipidemia E78.2 ; Gastroesophageal reflux disease without esophagitis K21.9 ; Chronic pain G89.29 ; Insomnia G47.00 and Acquired hypothyroidism E03.9 [place] [address] [address] Sep, [place] [address] [address] 11 Aug, 2016 Encounter for immunization Z 23 [place] [address] [address] Aug, [place] [address] [address] Jul, [place] [address] [address] Jun, Type 2 diabetes mellitus wit hout complications E11.9 ; HTN (hypertension) I10 ; Hypothyroid E03.9 ; Neuropathy G62.9 ; Depression F32.9 ; Chronic pain G89.29 ; GERD (gastroesophageal reflux disease) K21.9 ; Insomnia G47.00 ; Overactive bladder N32.81 ; Mixed hyperlipidemia E78.2 ; Diarrhea of infectious origin A09 and Environmental allergies Z91.09 [place] [address] [address] Apr, [place] [address] [address] March, Hypothyroidism, unspecified E03.9 and Mixed hyperlipidemia E78.2 [place] [address] [address] March, Diabetes mellitus E11.9 ; HT N (hypertension) I10 ; Hypothyroid E03.9 ; Depression F32.9 ; Overactive bladder N32.81 ; Other chronic pain G89.29 ; Lumbago with sciatica, unspecified side M54.40 ; Environmental allergies Z91.09 and Gastroesophageal reflux disease, esophagitis presence not specified K21.9 [place] [address] [address] March, [place] [address] [address] Jan, HTN (hypertension) I10 ; Hyp othyroid E03.9 ; Neuropathy G62.9 ; Diabetes mellitus E11.9 ; Chronic pain G89.29 ; GERD (gastroesophageal reflux disease) K21.9 ; Overactive bladder N32.81 and Depression F32.9 [place] [address] [address] 12 Dec, 2015 Ear pain, left H92.02 ; HTN (hypertension) I10 ; Hypothyroid E03.9 ; Neuropathy G62.9 ; Diabetes mellitus E11.9 ; Depression F32.9 ; GERD (gastroesophageal reflux disease) K21.9 ; Insomnia G47.00 and Overactive bladder N32.81 [place] [address] [address] Nov, Overactive bladder N32.81 an d Chronic pain G89.29 [place] [address] [address] Nov, Kidney failure N19 [place] [address] [address] Nov, [place] [address] [address] Nov, [place] [address] [address] Nov, Diabetes mellitus E11.9 ; De pression F32.9 ; Chronic pain G89.29 ; GERD (gastroesophageal reflux disease) K21.9 ; Insomnia G47.00 ; HTN (hypertension) I10 ; Hypothyroid E03.9 ; COPD (chronic obstructive pulmonary disease) J44.9 ; Bladder incontinence R32 and Incontinence R32 [place] [address] [place] [id number] [address] [place] [address] Sep, Type 2 diabetes mellitus wit h foot ulcer E11.621 and Chromosomal abnormality, 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 [place] [address] [address] Sep, [place] [address] [address] Aug, [place] [address] [address] Aug, [place] [address] [address] Aug, HTN (hypertension) I10 ; Enc ounter for immunization Z23 ; Hypothyroid E03.9 ; Neuropathy G62.9 ; Diabetes mellitus E11.9 ; Depression F32.9 ; Chronic pain G89.29 ; GERD (gastroesophageal reflux disease) K21.9 ; Insomnia G47.00 and COPD (chronic obstructive pulmonary disease) J44.[address] [address] Jun, [place] [address] [address] Jun, [address] [address] May, Essential hypertension, ivis gn 401.1 ; Unspecified hypothyroidism 244.9 ; Insomnia, unspecified 780.52 ; Shortness of breath 786.05 ; Depression 311 ; COPD (chronic obstructive pulmonary disease) 496 ; GERD (gastroesophageal reflux disease) 530.81 and Diabetes 1.5, 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 [place] [address] [address] May, [address] [address] May, [place] [address] [address] May, Shortness of breath 786.05 ; Essential hypertension, benign 401.1 ; Diabetes mellitus 250.00 ; Hyperlipidemia 272.4 ; Hypothyroid 244.9 ; Insomnia 780.52 and Cough 786.2 [facility] [address] [id number] [address] [place] [address] Apr, [facility] [address] [id number] [address] [place] [address] March, Shortness of breath 786.05 ; Nausea with vomiting 787.01 ; Essential hypertension, benign 401.1 ; Diabetes mellitus 250.00 ; Hyperlipidemia 272.4 and Hypothyroid 244.9 [facility] [address] [id number] [address] [place] [id number] Feb, [facility] [address] [id number] [address] [place] [address] Feb, [facility] [address] [id number] [address] [place] [address] Jan, [facility] [address] [facility] [id number] [address] [place] [address] Jan, [facility] [address] [id number] [address] [place] [address] Jan, [facility] [address] [id number] [address] [place] [address] Jan, [facility] [address] [facility] [id number] [address] [place] [phone] Jan, [facility] [address] [id number] [address] [place] [address] Jan, [facility] [address] [id number] [address] [place] [address] Jan, [facility] [address] [id number] [address] [place] [address] Jan, [facility] [address] [facility] [id number] [address] [place] [address] Jan, [facility] [address] [id number] [address] [place] [address] Jan, [facility] [address] [id number] [address] [place] [address], [place] [address] Dec, 2014 [facility] [address] [id number] [address] [place] [address], [place] [address] Dec, 2014 [facility] [address] [id number] [address] [place] [address], [place] [address] Dec, 2014 [facility] [address] [id number] [address] [place] [address], [place] [address] Dec, 2014 [facility] [address] [id number] [address] [place] [address], [place] [address] Dec, 2014 [facility] [address] [id number] [address] [place] [address], [place] [address] Dec, 2014 [facility] [address] [id number] [address] [place] [address], [place] [address] Dec, 2014 [facility] [address] [id number] [address] [place] [address], [place] [address] Dec, 2014 [facility] [address] [id number] [address] [place] [address], [place] [address] Dec, 2014 [facility] [address] [id number] [address] [place] [address], [place] [address] Dec, 2014 [facility] [address] [id number] [address] [place] [address], [place] [address] Oct, [facility] [address] [id number] [address] [place] [address], [place] [address] Oct, [facility] [address] [id number] [address] [place] [address], [place] [address] Oct, [facility] [address] [id number] [address] [place] [address], [place] [address] Oct, [facility] [address] [id number] [address] [place] [address], [place] [address] Oct, [facility] [address] [id number] [address] [place] [address], [place] [address] 08 Oct, 2014 [facility] [address] [id number] [address] [place] [address], [place] [address] 05 Oct, 2014 [facility] [address] [id number] [address] [place] [address], [place] [address] Oct, [facility] [address] [id number] [address] [place] [address], [place] [address] Oct, [facility] [address] [id number] [address] [place] [address], [place] [address] Oct, [facility] [address] [id number] [address] [place] [address], [place] [address] Oct, [facility] [address] [id number] [address] [place] [address], [place] [address] Oct, [facility] [address] [id number] [address] [place] [address], [place] [address] Oct, [facility] [address] [id number] [address] [place] [address], [place] [address] Oct, [facility] [address] [id number] [address] [place] [address], [place] [address] Sep, [facility] [address] [id number] [address] [place] [address], [place] [address] Sep, [facility] [address] [id number] [address] [place] [address], [place] [address] Sep, [facility] [address] [id number] [address] [place] [address], [place] [address] Sep, [facility] [address] [id number] [address] [place] [address], [place] [address] Sep, [facility] [address] [id number] [address] [place] [address], [place] [address] Sep, [facility] [address] [id number] [address] [place] [address], [place] [address] Sep, [facility] [address] [id number] [address] [place] [address], [place] [address] Sep, [facility] [address] [id number] [address] [place] [address], [place] [address] Sep, [facility] [address] [id number] [address] [place] [address], [place] [address] Aug, [facility] [address] [id number] [address] [place] [address], [place] [address] Aug, [facility] [address] [id number] [address] [place] [address], [place] [address] Aug, [facility] [address] [id number] [address] [place] [address], [place] [address] Aug, [facility] [address] [id number] [address] [place] [address], [place] [address] Aug, [facility] [address] [id number] [address] [place] [address], [place] [address] Aug, [facility] [address] [id number] [address] [place] [address], [place] [address] Aug, [facility] [address] [id number] [address] [place] [address], [place] [address] Aug, [facility] [address] [id number] [address] [place] [address], [place] [address] Aug, [facility] [address] [id number] [address] [place] [address], [place] [address] 29 Jul, 2014 [facility] [address] [id number] [address] [place] [address], [place] [address] 29 Jul, 2014 [facility] [address] [id number] [address] [place] [address], [place] [address] Jul, [facility] [address] [id number] [address] [place] [address], [place] [address] Jul, [facility] [address] [id number] [address] [place] [address], [place] [address] Jul, [facility] [address] [id number] [facility] [place] [address] Jul, [facility] [address] [id number] [address] [place] [address], [place] [address] Jul, [facility] [address] [id number] [address] [place] [address], [place] [address] Jul, [facility] [address] [id number] [address] [place] [address], [place] [address] Jul, [facility] [address] [id number] [address] [place] [address], [place] [address] Jul, [facility] [address] [id number] [address] [place] [address], [place] [address] Jun, [facility] [address] [id number] [address] [place] [address], [place] [address] Jun, [facility] [address] [id number] [address] [place] [address], [place] [address] Jun, [facility] [address] [id number] [address] [place] [address], [place] [address] Jun, [facility] [address] [id number] [address] [place] [address], [place] [address] Jun, [facility] [address] [id number] [address] [place] [address], [place] [address] Jun, [facility] [address] [id number] [address] [place] [address], [place] [address] Jun, [facility] [address] [id number] [address] [place] [address], [place] [address] Jun, [facility] [address] [id number] [address] [place] [address], [place] [address] Jun, [facility] [address] [id number] [address] [place] [address], [place] [address] Jun, [facility] [address] [id number] [facility] [place] [address] Jun, [facility] [address] [id number] [address] [place] [address], [place] [address] Jun, [facility] [address] [id number] [address] [place] [address], [place] [address] May, [facility] [address] [id number] [address] [place] [address], [place] [address] May, [facility] [address] [id number] [address] [place] [address], [place] [address] May, [facility] [address] [id number] [address] [place] [address], [place] [address] May, [facility] [facility] [address] [id number] [address] [place] [address], [place] [address] May, [facility] [address] [id number] [address] [place] [address], [place] [address] May, [facility] [address] [id number] [address] [place] [address], [place] [address] March, [facility] [address] [id number] [address] [place] [address], [place] [address] March, [facility] [address] [id number] [address] [place] [address], [place] [address] March, [facility] [address] [id number] [address] [place] [address], [place] [address] March, [facility] [address] [id number] [address] [place] [address], [place] [address] March, [facility] [address] [id number] [address] [place] [address], [place] [address] March, [facility] [address] [id number] [address] [place] [address], [place] [address] Feb, [facility] [address] [id number] [address] [place] [address], [place] [address] Feb, [facility] [address] [id number] [facility] [place] [address] Feb, [facility] [address] [id number] [facility] [place] [address] Feb, [facility] [address] [id number] [facility] [place] [address] Jan, [facility] [address] [id number] [address] [place] [address], [place] [address] Jan, [facility] [address] [id number] [address] [place] [address], [place] [address] Jan, [facility] [address] [id number] [address] [place] [address], [place] [address] Jan, [facility] [address] [id number] [address] [place] [address], [place] [address] Jan, [facility] [address] [id number] [address] [place] [address], [place] [address] Jan, [facility] [address] [id number] [address] [place] [address], [place] [address] Jan, [facility] [address] [id number] [address] [place] [address], [place] [address] Jan, [facility] [address] [id number] [address] [place] [address], [place] [address] Jan, [facility] [address] [id number] [address] [place] [address], [place] [address] Jan, [facility] [address] [id number] [address] [place] [address], [place] [address] Jan, [facility] [address] [id number] [address] [place] [address], [place] [address] Jan, [facility] [address] [id number] [address] [place] [address], [place] [address] Dec, [facility] [address] [id number] [address] [place] [address], [place] [address] Dec, [facility] [address] [id number] [address] [place] [address], [place] [address] Dec, [facility] [address] [id number] [address] [place] [address], [place] [address] Dec, [facility] [address] [id number] [address] [place] [address], [place] [address] Dec, [facility] [address] [id number] [address] [place] [address], [place] [address] Dec, [facility] [address] [id number] [address] [place] [address], [place] [address] Nov, [facility] [address] [id number] [address] [place] [address], [place] [address] Nov, [facility] [address] [id number] [address] [place] [address], [place] [address] Oct, [facility] [address] [id number] [address] [place] [address], [place] [address] Oct, [facility] [address] [id number] [address] [place] [address], [place] [address] Oct, [facility] [address] [id number] [address] [place] [address], [place] [address] Oct, [facility] [address] [id number] [address] [place] [address], [place] [address] Oct, [facility] [address] [id number] [address] [place] [address], [place] [address] Oct, [facility] [address] [id number] [address] [place] [address], [place] [address] Sep, [facility] [address] [id number] [address] [place] [address], [place] [address] Sep, [facility] [address] [id number] [address] [place] [address], [place] [address] Sep, [facility] [address] [id number] [address] [place] [address], [place] [address] Sep, [facility] [address] [id number] [address] [place] [address], [place] [address] Aug, [facility] [address] [id number] [address] [place] [address], [place] [address] Aug, [facility] [address] [id number] [address] [place] [address], [place] [address] Aug, [facility] [address] [id number] [address] [place] [address], [place] [address] Jul, [facility] [address] [id number] [address] [place] [address], [place] [address] 14 Jul, 2013 [facility] [address] [id number] [address] [place] [address], [place] [address] Jul, [facility] [address] [id number] [address] [place] [address], [place] [address] Jun, [facility] [address] [id number] [address] [place] [address], [place] [address] Jun, [facility] [address] [id number] [address] [place] [address], [place] [address] Jun, [facility] [address] [id number] [address] [place] [address], [place] [address] Apr, [facility] [address] [id number] [address] [place] [address] Apr, [facility] [address] [id number] [address] [place] [address], [place] [address] March, [facility] [address] [id number] [address] [place] [address], [place] [address] March, [facility] [address] [id number] [address] [place] [address] March, [facility] [address] [id number] [address] [place] [address], [place] [address] March, [facility] [address] [id number] [address] [place] [address], [place] [address] Feb, [facility] [address] [id number] [address] [place] [address], [place] [address] Jan, [facility] [address] [id number] [address] [place] [address], [place] [address] 13 Dec, 2012 [facility] [address] [id number] [address] [place] [address], [place] [address] 08 Dec, 2012 [facility] [address] [id number] [address] [place] [address], [place] [address] Dec, [facility] [address] [id number] [address] [place] [address], [place] [address] Nov, [facility] [address] [id number] [address] [place] [address], [place] [address] Oct, [facility] [address] [id number] [address] [place] [address], [place] [address] Oct, [facility] [address] [id number] [address] [place] [address], [place] [address] Sep, [facility] [address] [id number] [address] [place] [address], [place] [address] Sep, [facility] [address] [id number] [address] [place] [address], [place] [address] Sep, [facility] [address] [id number] [address] [place] [address], [place] [address] Sep, [facility] [address] [id number] [address] [place] [address], [place] [address] Sep, [facility] [address] [id number] [address] [place] [address], [place] [address] Sep, [facility] [address] [id number] [address] [place] [address], [place] [address] Sep, [facility] [address] [id number] [address] [place] [address], [place] [address] 16 Aug, 2012 [facility] [address] [id number] [address] [place] [address], [place] [address] 16 Aug, 2012 [facility] [address] [id number] [address] [place] [address], [place] [address] Aug, [facility] [address] [id number] [address] [place] [address], [place] [address] 10 Aug, 2012 [facility] [address] [id number] [address] [place] [address], [place] [address] Aug, [facility] [address] [id number] [address] [place] [address], [place] [address] Aug, [facility] [address] [id number] [address] [place] [address], [place] [address] Aug, [facility] [address] [id number] [address] [place] [address], [place] [address] Aug, [facility] [address] [id number] [address] [place] [address], [place] [address] Jul, [facility] [address] [id number] [address] [place] [address], [place] [address] Jul, [facility] [address] [id number] [address] [place] [address], [place] [address] Jun, [facility] [address] [id number] [address] [place] [address], [place] [address] May, [facility] [address] [id number] [address] [place] [address], [place] [address] Apr, [facility] [address] [id number] [address] [place] [address], [place] [address] Apr, [facility] [address] [id number] [address] [place] [address], [place] [address] 14 Apr, 2012 [facility] [address] [id number] [address] [place] [address], [place] [address] March, [facility] [address] [id number] [address] [place] [address], [place] [address] March, [facility] [address] [id number] [address] [place] [address], [place] [address] March, [facility] [address] [id number] [address] [place] [address], [place] [address] March, [facility] [address] [id number] [address] [place] [address], [place] [address] March, [facility] [address] [id number] [address] [place] [address], [place] [address] March, [facility] [address] [id number] [address] [place] [address], [place] [address] March, [facility] [address] [id number] [address] [place] [address], [place] [address] Jan, [facility] [address] [id number] [address] [place] [address], [place] [address] Jan, [facility] [address] [id number] [address] [place] [address], [place] [address] Jan, [facility] [address] [id number] [address] [place] [address], [place] [address] Jan, [facility] [address] [id number] [address] [place] [address], [place] [address] Jan, [facility] [address] [id number] [address] [place] [address], [place] [address] Dec, [facility] [address] [id number] [address] [place] [address], [place] [address] Dec, [facility] [address] [id number] [address] [place] [address], [place] [address] Nov, [facility] [address] [id number] [address] [place] [address], [place] [address] Nov, [facility] [address] [id number] [address] [place] [address], [place] [address] 06 Nov, 2011 [facility] [address] [id number] [address] [place] [address], [place] [address] Nov, [facility] [address] [id number] [address] [place] [address], [place] [address] Oct, [facility] [address] [id number] [address] [place] [address], [place] [address] Oct, [facility] [address] [id number] [address] [place] [address], [place] [address] 14 Sep, 2011 [facility] [address] [id number] [address] [place] [address], [place] [address] Sep, [facility] [address] [id number] [address] [place] [address], [place] [address] Sep, [facility] [address] [id number] [address] [place] [address], [place] [address] May, [facility] [address] [id number] [address] [place] [address], [place] [address] Nov, [facility] [address] [id number] [address] [place] [address], [place] [address] Oct, [facility] [address] [id number] [address] [place] [address], [place] [address] Oct, [facility] [address] [id number] [address] [place] [address], [place] [address] Oct, [facility] [address] [id number] [address] [place] [address], [place] [address] Sep, [facility] [address] [id number] [address] [place] [address], [place] [address] Sep, [facility] [address] [id number] [address] [place] [address], [place] [address] Aug, [facility] [address] [id number] [address] [place] [address], [place] [address] March, [facility] [address] [id number] [address] [place] [address] Oct, [facility] [address] [id number] [address] [place] [address] Oct, [facility] [address] [id number] [address] [place] [address] Oct, [facility] [address] [id number] [address] [place] [address] Oct, [facility] [address] [id number] [address] [place] [address] Sep, [facility] [address] [id number] [address] [place] [address] Sep, [facility] [address] [id number] [address] [place] [address] Sep, [facility] [address] [id number] [address] [place] [address] Aug, [facility] [address] [id number] [address] [place] [address] Aug, [facility] [address] [id number] [address] [place] [id number] Aug, [facility] [address] [id number] [address] [place] [address] Jan, IMMUNIZATIONS No Known Immunizations SOCIAL HISTORY Never Assessed REASON FOR VISIT Other PLAN OF CARE VITAL SIGNS MEDICATIONS Medication Instructions Dosage Frequency Start Date End Date Duration S tatus Rifaximin 550 MG Orally Twice a day 1 tablet 12h Dec, Jan, 10 day(s) Active RESULTS No Results PROCEDURES No [...]
--- OUTSIDE RECORDS SUMMARY | 2020-06-13 16:33 | XMS REPORT ---
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 Name Role Phone PARKERSHAYLEE MckeonELE Unavailable PROBLEMS Type Condition ICD9-CM Code TXN30-ZP Code Onset Dates Condition S tatus SNOMED Code Problem Gastroesophageal reflux disease with esophagitis K 21.0 Active 772698651 Problem shelter current use of insulin Z79.4 Active 210979505 Problem Irritable bowel syndrome with diarrhea K58.0 Active 837999509 Problem Diabetes mellitus E11.9 Active 73 549210 Problem Recurrent major depressive disorder, in partial remission F33.41 Active 49959322 Problem Essential (primary) hypertension I10 Active 40674519 Problem Type 2 diabetes mellitus with hyperglycemia E11.65 Active 65951507 Problem Current non-adherence to medical treatment Z91.19 Active 4468547 Problem Pulmonary emphysema, unspecified emphysema type J4 3.9 Active 94905399 Problem Neuropathy G62.9 Active 416639303 Problem Hypothyroid E03.9 Active 44844790 Problem Thrombocytosis D47.3 Active 89853 09 Problem Overactive bladder N32.81 Active 2 20549180 Problem Chronic pain G89.29 Active 4463208 1 Problem Mixed hyperlipidemia E78.2 Active [id number] ALLERGIES No Information ENCOUNTERS Encounter Location Date Diagnosis [facility] [address] [facility] [id number] [address] [place] [phone] March, [facility] [address] [facility] [id number] [address] [place] [address] March, Hypothyroid E03.9 [facility] [address] [facility] [id number] [address] [place] [phone] March, Diabetes mellitus E11.9 and Hypothyroid E03.9 [facility] [address] [facility] [id number] [address] [place] [address] March, Diabetes mellitus E11.9 [place] [address] [place] [id number] [address] [place] [phone] March, Hypothyroid E03.9 and Elevat ed liver enzymes R74.8 [place] [address] [place] [id number] [address] [place] [phone] March, Type 2 diabetes mellitus wit h [...] disorder, in partial remission F33.41 [place] [address] [place] [id number] [address] [place] [phone] Feb, Chronic pain G89.29 [place] [address] [address] Feb, Type 2 diabetes mellitus wit h hyperglycemia E11.65 and Skin lesion of scalp L98.9 [place] [id number] [address] [place] [phone] Feb, [place] [address] [place] [id number] [address] [place] [address] Jan, Type 2 diabetes mellitus wit h [...] bowel syndrome with diarrhea K58.0 [place] [address] [place] [id number] [address] [place] [phone] Jan, [place] [address] [place] [id number] [address] [place] [address] Jan, Controlled substance agreeme nt signed Z79.899 [place] [address] [facility] [id number] [address] [place] [phone] 08 Dec, 2017 Type 2 diabetes mellitus [...] and Overweight (BMI 25.0-29.9) E66.3 [place] [address] [place] [id number] [address] [place] [id number] 02 Dec, 2017 Controlled substance agreeme nt signed Z79.899 [place] [address] [facility] [id number] [address] [place] [phone] Nov, Type 2 diabetes mellitus wit h hyperglycemia E11.65 and Current non- adherence to medical treatment Z91.19 [place] [address] [place] [id number] [address] [place] [phone] Nov, [place] [address] [place] [id number] [address] [place] [phone] Nov, Chronic pain G89.29 [place] [address] [facility] [id number] [address] [place] [phone] Nov, [place] [address] [facility] [id number] [address] [place] [phone] Nov, Hypothyroid E03.9 [place] [address] [facility] [id number] [address] [place] [phone] Nov, Hypothyroid E03.9 [place] [address] [facility] [id number] [address] [place] [phone] Nov, Pulmonary emphysema, unspeci fied emphysema type J43.9 and Irritable bowel syndrome with diarrhea K58.0 [place] [address] [facility] [id number] [address] [place] [phone] Oct, [place] [address] [facility] [id number] [address] [place] [phone] Oct, [place] [address] [facility] [id number] [address] [place] [phone] Oct, [place] [address] [facility] [id number] [address] [place] [phone] Oct, [place] [address] [facility] [id number] [address] [place] [address] Oct, Chronic pain G89.29 [place] [address] [place] [id number] [address] [place] [phone] Oct, Diabetes mellitus E11.9 ; De pression F32.9 ; Mixed hyperlipidemia E78.2 ; Hypotension, unspecified hypotension type I95.9 ; Pulmonary emphysema, unspecified emphysema type J43.9 and Weight loss, unintentional R63.4 [place] [address] [place] [id number] [address] [place] [phone] Oct, Chronic pain G89.29 [place] [address] [place] [id number] [address] [place] [phone] Sep, Chronic pain G89.29 [place] [address] [place] [id number] [address] [place] [address] Sep, Hypothyroid E03.9 and Diabet es mellitus E11.9 [place] [address] [facility] [id number] [address] [place] [address] Aug, Type 2 diabetes mellitus wit h hyperglycemia E11.65 ; 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 ; Essential (primary) hypertension I10 ; Hypothyroid E03.9 ; Neuropathy G62.9 ; Chronic pain G89.29 ; Mixed hy perlipidemia E78.2 and Encounter for immunization Z23 [place] [address] [facility] [id number] [address] [place] [phone] Aug, Chronic pain G89.29 [facility] [address] [facility] [id number] [address] [place] [address] Aug, Overactive bladder N32.81 ; Diabetes mellitus E11.9 and Chronic pain G89.29 [facility] [address] [facility] [id number] [address] [place] [phone] Jul, [facility] [address] [facility] [id number] [address] [place] [phone] Jun, [facility] [address] [place] [id number] [address] [place] [phone] Jun, [facility] [address] [place] [id number] [place] [phone] Jun, Hypothyroid E03.9 [facility] [address] [place] [id number] [place] [phone] Jun, Diabetes mellitus E11.9 ; Hy pothyroid E03.9 ; Neuropathy G62.9 ; Chronic pain G89.29 and Neck mass R22.1 [facility] [address] [place] [id number] [address] [place] [address] Apr, [facility] [address] [place] [id number] [address] [place] [phone] Apr, Acute cystitis without hemat uria N30.00 [facility] [address] [facility] [id number] [address] [place] [phone] March, [facility] [address] [place] [id number] [address] [place] [phone] March, [facility] [address] [place] [id number] [address] [place] [address] March, Near syncope R55 [facility] [address] [place] [id number] [address] [place] [phone] Feb, [facility] [address] [place] [id number] [address] [place] [phone] Feb, Chronic pain G89.29 [facility] [address] [facility] [id number] [address] [place] [phone] Feb, [facility] [address] [facility] [id number] [address] [place] [id number] Feb, [facility] [address] [facility] [id number] [address] [place] [id number] Jan, Chronic pain G89.29 [facility] [address] [facility] [id number] [address] [place] [phone] Jan, [facility] [address] [address] Jan, [facility] [address] [facility] [id number] [address] [place] [id number] Jan, Diabetes mellitus E11.9 ; Hy pothyroid E03.9 ; GERD (gastroesophageal reflux disease) K21.9 ; Insomnia G47.00 ; Functional diarrhea K59.1 ; Neuropathy G62.9 ; Depression F32.9 ; Chronic pain G89.29 ; Irritable bowel syndrome with diarrhea K58.0 ; Overactive bladder N32.81 ; Mixed hyperlipidemia E78.2 and Bronchitis J40 [facility] [address] [facility] [id number] [address] [place] [id number] Dec, [facility] [address] [facility] [id number] [address] [place] [address] Dec, [facility] [address] [facility] [id number] [address] [place] [phone] Dec, [facility] [address] [facility] [id number] [address] [place] [phone] Dec, [facility] [address] [facility] [id number] [address] [place] [address] Dec, Chronic pain G89.29 [facility] [address] [facility] [id number] [address] [place] [phone] Dec, [facility] [address] [place] [id number] [address] [place] [address] Dec, [facility] [address] [place] [id number] [place] [address] Dec, Type 2 diabetes mellitus wit h foot ulcer E11.621 [facility] [address] [place] [id number] [address] [place] [address] 17 Dec, 2016 Type 2 diabetes mellitus wit h foot ulcer E11.621 [facility] [address] [place] [id number] [address] [place] [address] Dec, HTN (hypertension) I10 ; Dep ression F32.9 ; Type 2 diabetes mellitus with foot ulcer E11.621 ; Functional diarrhea K59.1 ; Irritable bowel syndrome with diarrhea K58.0 ; Chronic pain G89.29 ; Insomnia G47.00 ; Overactive bladder N32.81 ; Mixed hyperlipidemia E78.2 ; Gastroesophageal reflux disease with esophagitis K21.0 and Acquired hypothyroidism E03.9 [place] [address] [address] Nov, [place] [address] [address] Oct, [place] [address] [id number] Oct, [place] [address] [place] [id number] [address] [place] [phone] Oct, [place] [address] [place] [id number] [address] [place] [address] Sep, Functional diarrhea K59.1 ; HTN (hypertension) I10 ; Diabetes mellitus E11.9 ; Depression F32.9 ; Overactive bladder N32.81 ; Mixed hyperlipidemia E78.2 ; Gastroesophageal reflux disease without esophagitis K21.9 ; Chronic pain G89.29 ; Insomnia G47.00 and Acquired hypothyroidism E03.9 [place] [address] [address] 04 Sep, 2016 [place] [address] [address] 11 Aug, 2016 Encounter for immunization Z 23 [place] [address] [address] 06 Aug, 2016 [place] [address] [address] 09 Jul, 2016 [place] [address] [address] Jun, Type 2 diabetes mellitus wit hout complications E11.9 ; HTN (hypertension) I10 ; Hypothyroid E03.9 ; Neuropathy G62.9 ; Depression F32.9 ; Chronic pain G89.29 ; GERD (gastroesophageal reflux disease) K21.9 ; Insomnia G47.00 ; Overactive bladder N32.81 ; Mixed hyperlipidemia E78.2 ; Diarrhea of infectious origin A09 and Environmental allergies Z91.09 [place] [address] [address] Apr, [place] [address] [address] March, Hypothyroidism, unspecified E03.9 and Mixed hyperlipidemia E78.2 [place] [address] [address] March, Diabetes mellitus E11.9 ; HT N (hypertension) I10 ; Hypothyroid E03.9 ; Depression F32.9 ; Overactive bladder N32.81 ; Other chronic pain G89.29 ; Lumbago with sciatica, unspecified side M54.40 ; Environmental allergies Z91.09 and Gastroesophageal reflux disease, esophagitis presence not specified K21.9 [place] [address] [address] March, [place] [address] [address] Jan, HTN (hypertension) I10 ; Hyp othyroid E03.9 ; Neuropathy G62.9 ; Diabetes mellitus E11.9 ; Chronic pain G89.29 ; GERD (gastroesophageal reflux disease) K21.9 ; Overactive bladder N32.81 and Depression F32.9 [facility] [address] [facility] [id number] [address] [place] [address] 12 Dec, 2015 Ear pain, left H92.02 ; HTN (hypertension) I10 ; Hypothyroid E03.9 ; Neuropathy G62.9 ; Diabetes mellitus E11.9 ; Depression F32.9 ; GERD (gastroesophageal reflux disease) K21.9 ; Insomnia G47.00 and Overactive bladder N32.81 [place] [id number] [place] [address] Nov, Overactive bladder N32.81 an d Chronic pain G89.29 [place] [address] [place] [id number] [address] [place] [phone] Nov, Kidney failure N19 [place] [address] [place] [id number] [address] [place] [phone] Nov, [place] [id number] [place] [address] Nov, [place] [address] [place] [id number] [address] [place] [address] Nov, Diabetes mellitus E11.9 ; De pression F32.9 ; Chronic pain G89.29 ; GERD (gastroesophageal reflux disease) K21.9 ; Insomnia G47.00 ; HTN (hypertension) I10 ; Hypothyroid E03.9 ; COPD (chronic obstructive pulmonary disease) J44.9 ; Bladder incontinence R32 and Incontinence R32 [place] [address] [place] [id number] [address] [place] [address] Sep, Type 2 diabetes mellitus wit h foot ulcer E11.621 and Chromosomal abnormality, 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 [facility] [address] [place] [id number] [address] [place] [id number] Sep, [place] [address] [address] Aug, [place] [address] [address] Aug, [place] [address] [address] Aug, HTN (hypertension) I10 ; Enc ounter for immunization Z23 ; Hypothyroid E03.9 ; Neuropathy G62.9 ; Diabetes mellitus E11.9 ; Depression F32.9 ; Chronic pain G89.29 ; GERD (gastroesophageal reflux disease) K21.9 ; Insomnia G47.00 and COPD (chronic obstructive pulmonary disease) J44.[address] [address] Jun, [address] [address] Jun, [address] [address] May, Essential hypertension, ivis gn 401.1 ; Unspecified hypothyroidism 244.9 ; Insomnia, unspecified 780.52 ; Shortness of breath 786.05 ; Depression 311 ; COPD (chronic obstructive pulmonary disease) 496 ; GERD (gastroesophageal reflux disease) 530.81 and Diabetes 1.5, 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 [address] May, [address] [address] May, [place] [address] [address] May, Shortness of breath 786.05 ; Essential hypertension, benign 401.1 ; Diabetes mellitus 250.00 ; Hyperlipidemia 272.4 ; Hypothyroid 244.9 ; Insomnia 780.52 and Cough 786.[address] [address] Apr, [place] [address] [id number] [address] [place] [address] March, Shortness of breath 786.05 ; Nausea with vomiting 787.01 ; Essential hypertension, benign 401.1 ; Diabetes mellitus 250.00 ; Hyperlipidemia 272.4 and Hypothyroid 244.9 [facility] [address] [id number] [address] [place] [address] Feb, [facility] [address] [id number] [address] [place] [address] Feb, [facility] [address] [id number] [address] [place] [address] Jan, [facility] [address] [id number] [address] [place] [phone] Jan, [facility] [address] [facility] [id number] [address] [place] [phone] Jan, [facility] [address] [id number] [address] [place] [phone] Jan, [facility] [address] [facility] [id number] [address] [place] [phone] Jan, [facility] [address] [facility] [id number] [address] [place] [phone] Jan, [facility] [address] [facility] [id number] [address] [place] [phone] Jan, [facility] [address] [id number] [address] [place] [phone] Jan, [facility] [address] [id number] [address] [place] [phone] Jan, [facility] [address] [id number] [address] [place] [phone] Jan, [facility] [address] [facility] [id number] [address] [place] [phone] Dec, [facility] [address] [id number] [address] [place] [phone] Dec, 2014 [facility] [address] [id number] [address] [place] [address], [place] [address] Dec, 2014 [facility] [address] [id number] [address] [place] [address], [place] [address] Dec, 2014 [facility] [address] [id number] [address] [place] [address], [place] [address] Dec, 2014 [facility] [address] [id number] [address] [place] [address], [place] [address] Dec, 2014 [facility] [address] [id number] [address] [place] [address], [place] [address] Dec, 2014 [facility] [address] [id number] [address] [place] [address], [place] [address] Dec, 2014 [facility] [address] [id number] [address] [place] [address], [place] [address] Dec, 2014 [facility] [address] [id number] [address] [place] [address], [place] [address] Dec, 2014 [facility] [address] [id number] [address] [place] [address], [place] [address] Oct, [facility] [address] [id number] [address] [place] [address], [place] [address] Oct, [facility] [address] [id number] [address] [place] [address], [place] [address] Oct, [facility] [address] [id number] [address] [place] [address], [place] [address] Oct, [facility] [address] [id number] [address] [place] [address], [place] [address] Oct, [facility] [address] [id number] [address] [place] [address], [place] [address] Oct, [facility] [address] [id number] [address] [place] [address], [place] [address] Oct, [facility] [address] [id number] [address] [place] [address], [place] [address] 05 Oct, 2014 [facility] [address] [id number] [address] [place] [address], [place] [address] Oct, [facility] [address] [id number] [address] [place] [address], [place] [address] Oct, [facility] [address] [id number] [address] [place] [address], [place] [address] Oct, [facility] [address] [id number] [address] [place] [address], [place] [address] Oct, [facility] [address] [id number] [address] [place] [address], [place] [address] Oct, [facility] [address] [id number] [address] [place] [address], [place] [address] Oct, [facility] [address] [id number] [address] [place] [address], [place] [address] Sep, [facility] [address] [id number] [address] [place] [address], [place] [address] Sep, [facility] [address] [id number] [address] [place] [address], [place] [address] Sep, [facility] [address] [id number] [address] [place] [address], [place] [address] Sep, [facility] [address] [id number] [address] [place] [address], [place] [address] Sep, [facility] [address] [id number] [address] [place] [address], [place] [address] Sep, [facility] [address] [id number] [address] [place] [address], [place] [address] Sep, [facility] [address] [id number] [address] [place] [address], [place] [address] Sep, [facility] [address] [id number] [address] [place] [address], [place] [address] Sep, [facility] [address] [id number] [address] [place] [address], [place] [address] Aug, [facility] [address] [id number] [address] [place] [address], [place] [id number] 20 Aug, 2014 [facility] [address] [id number] [address] [place] [address], [place] [address] 17 Aug, 2014 [facility] [address] [id number] [address] [place] [address], [place] [id number] 17 Aug, 2014 [facility] [address] [id number] [address] [place] [address], [place] [id number] 16 Aug, 2014 [facility] [address] [id number] [address] [place] [address], [place] [address] Aug, [facility] [address] [id number] [address] [place] [address], [place] [id number] Aug, [facility] [address] [id number] [address] [place] [address], [place] [address] Aug, [facility] [address] [id number] [address] [place] [address], [place] [address] Aug, [facility] [address] [id number] [address] [place] [address], [place] [id number] 29 Jul, 2013 [facility] [address] [id number] [address] [place] [address], [place] [id number] 29 Sep, 2013 [facility] [address] [id number] [address] [place] [address], [place] [id number] 25 Jul, 2013 [facility] [address] [id number] [address] [place] [address], [place] [id number] 25 Jul, 2013 [facility] [address] [id number] [address] [place] [address], [place] [id number] 25 Jul, 2013 [facility] [address] [id number] [address] [place] [address], [place] [id number] 25 Jul, 2013 [facility] [address] [id number] [facility] [id number] Jul, [facility] [address] [id number] [facility] [place] [id number] Jul, [facility] [address] [id number] [facility] [place] [id number] Jul, [facility] [address] [id number] [facility] [place] [id number] Jul, [facility] [address] [id number] [facility] [place] [address] Jun, [facility] [address] [id number] [address] [place] [address], [place] [address] Jun, [facility] [address] [id number] [address] [place] [address], [place] [address] Jun, [facility] [address] [id number] [address] [place] [address], [place] [id number] Jun, [facility] [facility] [address] [id number] [address] [place] [address], [place] [address] Jun, [facility] [address] [id number] [address] [place] [address], [place] [address] Jun, [facility] [address] [id number] [address] [place] [address], [place] [address] Jun, [facility] [address] [id number] [address] [place] [address], [place] [address] Jun, [facility] [address] [id number] [address] [place] [address], [place] [address] Jun, [facility] [address] [id number] [address] [place] [address], [place] [address] Jun, [facility] [address] [id number] [address] [place] [address], [place] [address] Jun, [facility] [address] [id number] [address] [place] [address], [place] [address] Jun, [facility] [address] [id number] [facility] [place] [address] May, [facility] [address] [id number] [address] [place] [address], [place] [address] May, [facility] [address] [id number] [address] [place] [address], [place] [address] May, [facility] [address] [id number] [address] [place] [address], [place] [address] May, [facility] [address] [id number] [address] [place] [address], [place] [address] May, [facility] [address] [id number] [address] [place] [address], [place] [address] May, [facility] [address] [id number] [address] [place] [address], [place] [address] March, [facility] [address] [id number] [address] [place] [address], [place] [address] March, [facility] [address] [id number] [address] [place] [address], [place] [address] March, [facility] [address] [id number] [address] [place] [address], [place] [address] March, [facility] [address] [id number] [address] [place] [address], [place] [address] March, [facility] [address] [id number] [address] [place] [address], [place] [address] March, [facility] [address] [id number] [address] [place] [address], [place] [address] Feb, [facility] [address] [id number] [address] [place] [address], [place] [address] Feb, [facility] [address] [id number] [address] [place] [address], [place] [address] Feb, [facility] [address] [id number] [facility] [place] [address] Feb, [facility] [address] [id number] [address] [place] [address], [place] [address] Jan, [facility] [address] [id number] [facility] [place] [address] Jan, [facility] [address] [id number] [address] [place] [address], [place] [address] Jan, [facility] [address] [id number] [address] [place] [address], [place] [address] Jan, [facility] [address] [id number] [address] [place] [address], [place] [address] Jan, [facility] [address] [id number] [address] [place] [address], [place] [address] Jan, [facility] [address] [id number] [address] [place] [address], [place] [address] Jan, [facility] [address] [id number] [address] [place] [address], [place] [address] Jan, [facility] [address] [id number] [address] [place] [address], [place] [address] Jan, [facility] [address] [id number] [address] [place] [address], [place] [address] Jan, [facility] [address] [id number] [address] [place] [address], [place] [address] Jan, [facility] [address] [id number] [address] [place] [address], [place] [address] Jan, [facility] [address] [id number] [address] [place] [address], [place] [address] Dec, [facility] [address] [id number] [address] [place] [address], [place] [address] Dec, [facility] [address] [id number] [address] [place] [address], [place] [address] Dec, [facility] [address] [id number] [address] [place] [address], [place] [address] Dec, [facility] [address] [id number] [address] [place] [address], [place] [address] Dec, [facility] [address] [id number] [address] [place] [address], [place] [address] Dec, [facility] [address] [id number] [address] [place] [address], [place] [address] Nov, [facility] [address] [id number] [address] [place] [address], [place] [address] Nov, [facility] [address] [id number] [address] [place] [address], [place] [address] Oct, [facility] [address] [id number] [address] [place] [address], [place] [address] Oct, [facility] [address] [id number] [address] [place] [address], [place] [address] Oct, [facility] [address] [id number] [address] [place] [address], [place] [address] Oct, [facility] [address] [id number] [address] [place] [address], [place] [address] Oct, [facility] [address] [id number] [address] [place] [address], [place] [address] Oct, [facility] [address] [id number] [address] [place] [address] Sep, [facility] [address] [id number] [address] [place] [address], [place] [address] Sep, [facility] [address] [id number] [address] [place] [address], [place] [address] Sep, [facility] [address] [id number] [address] [place] [address], [place] [address] Sep, [facility] [address] [id number] [address] [place] [address], [place] [address] Aug, [facility] [address] [id number] [address] [place] [address], [place] [address] Aug, [facility] [address] [id number] [address] [place] [address], [place] [address] Aug, [facility] [address] [id number] [address] [place] [address], [place] [address] 17 Jul, 2013 [facility] [address] [id number] [address] [place] [address], [place] [address] 14 Jul, 2013 [facility] [address] [id number] [address] [place] [address], [place] [address] Jul, [facility] [address] [id number] [address] [place] [address], [place] [address] Jun, [facility] [address] [id number] [address] [place] [address], [place] [address] Jun, [facility] [address] [id number] [address] [place] [address], [place] [address] Jun, [facility] [address] [id number] [address] [place] [address], [place] [address] Apr, [facility] [address] [id number] [address] [place] [address], [place] [address] Apr, [facility] [address] [id number] [address] [place] [address], [place] [address] March, [facility] [address] [id number] [address] [place] [address], [place] [address] March, [facility] [address] [id number] [address] [place] [address], [place] [address] March, [facility] [address] [id number] [address] [place] [address], [place] [address] March, [facility] [address] [id number] [address] [place] [address], [place] [address] Feb, [facility] [address] [id number] [address] [place] [address], [place] [address] Jan, [facility] [address] [id number] [address] [place] [address], [place] [address] 13 Dec, 2012 [facility] [address] [id number] [address] [place] [address], [place] [address] 08 Dec, 2012 [facility] [address] [id number] [address] [place] [address], [place] [address] 07 Dec, 2012 [facility] [address] [id number] [address] [place] [address], [place] [address] Nov, [facility] [address] [id number] [address] [place] [address], [place] [address] Oct, [facility] [address] [id number] [address] [place] [address], [place] [address] Oct, [facility] [address] [id number] [address] [place] [address], [place] [address] Sep, [facility] [address] [id number] [address] [place] [address], [place] [address] Sep, [facility] [address] [id number] [address] [place] [address], [place] [address] Sep, [facility] [address] [id number] [address] [place] [address], [place] [address] Sep, [facility] [address] [id number] [address] [place] [address] Sep, [facility] [address] [id number] [address] [place] [address], [place] [address] Sep, [facility] [address] [id number] [address] [place] [address], [place] [address] Sep, [facility] [address] [id number] [address] [place] [address], [place] [address] 16 Aug, 2012 [facility] [address] [id number] [address] [place] [address] 16 Aug, 2012 [facility] [address] [id number] [address] [place] [address], [place] [address] 10 Aug, 2012 [facility] [address] [id number] [address] [place] [address], [place] [address] 10 Aug, 2012 [facility] [address] [id number] [address] [place] [address], [place] [address] 08 Aug, 2012 [facility] [address] [id number] [address] [place] [address], [place] [address] 08 Aug, 2012 [facility] [address] [id number] [address] [place] [address], [place] [address] Aug, [facility] [address] [id number] [address] [place] [address], [place] [address] Aug, [facility] [address] [id number] [address] [place] [address], [place] [address] Jul, [facility] [address] [id number] [address] [place] [address], [place] [address] Jul, [facility] [address] [id number] [address] [place] [address], [place] [address] Jun, [facility] [address] [id number] [address] [place] [address], [place] [address] May, [facility] [address] [id number] [address] [place] [address], [place] [address] Apr, [facility] [address] [id number] [address] [place] [address], [place] [address] Apr, [facility] [address] [id number] [address] [place] [address], [place] [address] Apr, [facility] [address] [id number] [address] [place] [address], [place] [address] March, [facility] [address] [id number] [address] [place] [address], [place] [address] March, [facility] [address] [id number] [address] [place] [address], [place] [address] March, [facility] [address] [id number] [address] [place] [address], [place] [address] March, [facility] [address] [id number] [address] [place] [address], [place] [address] March, [facility] [address] [id number] [address] [place] [address], [place] [address] March, [facility] [address] [id number] [address] [place] [address], [place] [address] March, [facility] [address] [id number] [address] [place] [address], [place] [address] Jan, [facility] [address] [id number] [address] [place] [address], [place] [address] Jan, [facility] [address] [id number] [address] [place] [address], [place] [address] Jan, [facility] [address] [id number] [address] [place] [address], [place] [address] Jan, [facility] [address] [id number] [address] [place] [address], [place] [address] Jan, [facility] [address] [id number] [address] [place] [address], [place] [address] Dec, [facility] [address] [id number] [address] [place] [address], [place] [address] Dec, [facility] [address] [id number] [address] [place] [address], [place] [address] Nov, [facility] [address] [id number] [address] [place] [address], [place] [address] Nov, [facility] [address] [id number] [address] [place] [address], [place] [address] Nov, [facility] [address] [id number] [address] [place] [address] [address] 05 Nov, 2011 [facility] [address] [id number] [address] [place] [address], [place] [address] 21 Oct, 2011 [facility] [address] [id number] [address] [place] [address], [place] [address] 06 Oct, 2011 [facility] [address] [id number] [address] [place] [address], [place] [address] 14 Sep, 2011 [facility] [address] [id number] [address] [place] [address], [place] [address] 10 Sep, 2011 [facility] [address] [id number] [address] [place] [address], [place] [address] 10 Sep, 2011 [facility] [address] [id number] [address] [place] [address], [place] [address] 11 May, 2011 [facility] [address] [id number] [address] [place] [address], [place] [address] 20 Nov, 2010 [facility] [address] [id number] [address] [place] [address], [place] [address] 29 Oct, 2010 [facility] [address] [id number] [address] [place] [address], [place] [address] 14 Oct, 2010 [facility] [address] [id number] [address] [place] [address], [place] [address] 08 Oct, 2010 [facility] [address] [id number] [address] [place] [address], [place] [address] 15 Sep, 2010 [facility] [address] [id number] [address] [place] [address], [place] [address] Sep, [facility] [address] [id number] [address] [place] [address], [place] [address] Aug, [facility] [address] [id number] [address] [place] [address], [place] [address] March, [facility] [address] [id number] [address] [place] [address], [place] [address] 17 Oct, 2009 [facility] [address] [id number] [address] [place] [address] Oct, [facility] [address] [id number] [address] [place] [address] Oct, [facility] [address] [id number] [address] [place] [address] Oct, [facility] [address] [id number] [address] [place] [address] Sep, [facility] [address] [id number] [address] [place] [address] Sep, [facility] [address] [facility] [id number] [address] [place] [address] Sep, [facility] [address] [facility] [id number] [address] [place] [address] Aug, [facility] [address] [facility] [id number] [address] [place] [address] Aug, [facility] [address] [id number] [address] [place] [address] Aug, [facility] [address] [facility] [id number] [address] [place] [address] Jan, IMMUNIZATIONS No Known Immunizations SOCIAL HISTORY Never Assessed REASON FOR VISIT CHEST, ABD & PELVIS PLAN OF CARE VITAL SIGNS MEDICATIONS Unknown [...]
--- OUTSIDE RECORDS SUMMARY | 2020-06-13 16:33 | XMS REPORT ---
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 Phone SILVERIO GIBBSNETTE Unavailable PROBLEMS Type Condition ICD9-CM Code [id number] Code Onset Dates Condition S tatus SNOMED Code Problem Overactive bladder N32.81 Active 2 41206196 Problem Gastroesophageal reflux disease without esophagitis K21.9 Active 324974657 Problem Mixed hyperlipidemia E78.2 Active 468044825 Problem Type 2 diabetes mellitus without complications E11 .9 Active 137812135 Problem USP current use of insulin Z79.4 Active 102498579 Problem Irritable bowel syndrome with diarrhea K58.0 Active 741803188 Problem Functional diarrhea K59.1 Active 73591559 Problem Diabetes mellitus E11.9 Active 73 236110 Problem Gastroesophageal reflux disease with esophagitis K 21.0 Active 904125397 Problem Chronic pain G89.29 Active 5586499 1 Problem Insomnia G47.00 Active 697106242 Problem HTN (hypertension) I10 Active 3 0196118 Problem Neuropathy G62.9 Active 301148048 Problem Depression F32.9 Active 04110380 Problem Hypothyroid E03.9 Active 53205022 Problem GERD (gastroesophageal reflux disease) K21.9 Active 410962222 ALLERGIES No Information SOCIAL HISTORY Never Assessed PLAN OF CARE VITAL SIGNS MEDICATIONS Medication Instructions Dosage Frequency Start Date End Date Duration S tatus Tramadol HCl 50 mg Orally 4 times a day TAKE ONE TABLET BY MOUTH EVERY 4 HOURS NEEDED 6h Jan, 28 days Active RESULTS No [...]
--- OUTSIDE RECORDS SUMMARY | 2020-06-13 16:33 | XMS REPORT ---
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 Name Role Phone FAIZAN GIBBSE Unavailable PROBLEMS Type Condition ICD9-CM Code [id number] Code Onset Dates Condition S tatus SNOMED Code Problem Overactive bladder N32.81 Active 2 17819897 Problem Gastroesophageal reflux disease without esophagitis K21.9 Active 275073734 Problem Mixed hyperlipidemia E78.2 Active 383675296 Problem Type 2 diabetes mellitus without complications E11 .9 Active 549907339 Problem care home current use of insulin Z79.4 Active 901805101 Problem Irritable bowel syndrome with diarrhea K58.0 Active 628618425 Problem Functional diarrhea K59.1 Active 37061960 Problem Diabetes mellitus E11.9 Active 73 330607 Problem Gastroesophageal reflux disease with esophagitis K 21.0 Active 374314822 Problem Chronic pain G89.29 Active 9503850 1 Problem Insomnia G47.00 Active 790945631 Problem HTN (hypertension) I10 Active 3 0390732 Problem Neuropathy G62.9 Active 797235845 Problem Depression F32.9 Active 71831412 Problem Hypothyroid E03.9 Active 79716247 Problem GERD (gastroesophageal reflux disease) K21.9 Active 027896106 ALLERGIES Substance Reaction Event Type Date Status Trilipix nausea Drug Allergy Jan, Active Niacin rash Drug Allergy Jan, Active Metformin HCl diarrhea Drug Allergy Jan, Active Januvia diarrhea Drug Allergy Jan, Active Gemfibrozil diarrhea Drug Allergy Jan, Active Actos diarrhea Drug Allergy Jan, Active SOCIAL HISTORY Never Assessed PLAN OF CARE Activity Details Follow Up 3 Months Reason:dm hypothyro id VITAL SIGNS Height 69 in 2017-01-23 Weight 181.4 lbs 2017-01-23 Temperature 96.3 degrees Fahrenheit 2017-01-23 Heart Rate 72 bpm 2017-01-23 Respiratory Rate 18 2017-01-23 BMI 26.79 kg/m2 2017-01-23 Blood pressure systolic 128 mmHg 2017-01-23 Blood pressure diastolic 70 mmHg 2017-01-23 MEDICATIONS Medication Instructions Dosage Frequency Start Date End Date Duration S gato NovoLog Flexpen 100 UNIT/ML Subcutaneous 3 times a day wit meals 20 units 14 Jan, 2017 Active Dicyclomine HCl 20 MG TAKE ONE TABLET BY MOUTH FOUR TIMES DAILY NEEDED Active Zyrtec Allergy 10 MG Orally Once a day as directed 24h 12 Dec, 2015 Active Oxybutynin Chloride 5 mg Orally Twice a day 1 tablet 12h Active Viberzi 75 MG Orally Twice a day 1 tablet with food 12h Active Lisinopril 20 MG Orally Once a day 1 tablet 24h 30 Active Omeprazole 20 MG TAKE ONE CAPSULE BY MOUTH TWICE DAILY Active Effexor XR 75 MG Orally Once a day take 1 capsule (75 m g) by oral route once daily with food 24h Jan, Active Tramadol HCl 50 mg Orally 4 times a day TAKE ONE TABLET BY MOUTH EVERY 4 HOURS NEEDED 6h 23 Jan, 2017 Active Trilipix 135 MG Orally Once a day 1 capsule 24h March, Active Cyclobenzaprine HCl 10 mg Orally Three times a day 1 tablet 8h 12 M 2015 Active Proventil HFA 108 (90 Base) MCG/ACT Inhalation every 4 hrs 2 puffs as needed 4h May, Active Doxycycline Hyclate 100 mg Orally every 12 hrs 1 tablet 12h Jan, Jan, 07 days Active Levothyroxine Sodium 125 MCG TAKE ONE TABLET BY MOUTH DAILY Active Levemir FlexTouch 100 unit/mL (3 mL) Subcutaneous 2 times a day 120units bid 12h Jan, Active MetFORMIN HCl ER 500 MG Orally 2 times a day with meals 1 tablet Active RESULTS Name Result Date Reference Range TSH W/ FREE T4 2017-01-23 TSH 4.490 0.450-4.500 T4,Free(Direct) 1.44 0.82-1.77 CBC 2017-01-23 WBC 10.0 3.4-10.8 RBC 4.59 4.14-5.80 Hemoglobin 13.8 12.6-17.7 Hematocrit 41.8 37.5-51.0 MCV 91 79-97 MCH 30.1 26.6-33.0 MCHC 33.0 31.5-35.7 RDW 13.4 12.3-15.4 Platelets 523 150-379 Neutrophils 61 Lymphs 30 Monocytes 7 Eos 1 Basos 1 Neutrophils (Absolute) 6.1 1.4-7.0 Lymphs (Absolute) 3.0 0.7-3.1 Monocytes(Absolute) 0.7 0.1-0.9 Eos (Absolute) 0.1 0.0-0.4 Baso (Absolute) 0.1 0.0-0.2 Immature Granulocytes 0 Immature Grans (Abs) 0.0 0.0-0.1 LIPID PANEL 2017-01-23 Cholesterol, Total 435 100-199 Triglycerides 1036 0-149 HDL Cholesterol 39 >39 VLDL Cholesterol Dean 5-40 LDL Cholesterol Calc 0-99 CMP 2017-01-23 Glucose, Serum 496 65-99 BUN 23 8-27 Creatinine, Serum 1.19 0.76-1.27 eGFR If NonAfricn Am 64 >59 eGFR If Africn Am 74 >59 BUN/Creatinine Ratio 19 10-22 Sodium, Serum 131 134-144 Potassium, Serum 5.6 3.5-5.2 Chloride, Serum 87 96-106 Carbon Dioxide, Total 21 18-29 Calcium, Serum 10.2 8.6-10.2 Protein, Total, Serum 8.3 6.0-8.5 Albumin, Serum 4.5 3.6-4.8 Globulin, Total 3.8 1.5-4.5 A/G Ratio 1.2 1.2-2.2 Bilirubin, Total 0.3 0.0-1.2 Alkaline Phosphatase, S 189 39-117 AST (SGOT) 19 0-40 ALT (SGPT) 29 0-44 A1C (IN HOUSE) 2017-01-23 A1C IN HOUSE >14.0 4.3 - 5.6 % Previous A1c >14.0 Lot [id number] Exp date 11/2018 PROCEDURES Procedure Date Ordered Result Body Site COMPLETE CBC W/AUTO DIFF WBC January 23, 2017 COMPREHEN METABOLIC PANEL January 23, 2017 VENIPUNCT, ROUTINE* January 23, 2017 GLYCATED HEMOGLOBIN TEST January 23, 2017 ASSAY OF FREE THYROXINE January 23, 2017 ASSAY THYROID STIM HORMONE January 23, 2017 LIPID PANEL January 23, 2017 IMMUNIZATIONS No Known Immunizations MEDICAL (GENERAL) [...]
--- OUTSIDE RECORDS SUMMARY | 2020-06-13 16:33 | XMS REPORT ---
Author Author Jah Arita Organization [facility] Address [address] [place] [address] Care Team Providers Care Master Esthetician Name Role Phone CHLOE Arita Unavailable PROBLEMS Type Condition ICD9-CM Code KXV80-JK Code Onset Dates Condition S tatus SNOMED Code Problem Overactive bladder N32.81 Active 2 42679196 Problem Gastroesophageal reflux disease with esophagitis K 21.0 Active 786061871 Problem Mixed hyperlipidemia E78.2 Active 828130587 Problem Current non-adherence to medical treatment Z91.19 Active 5332170 Problem Pulmonary emphysema, unspecified emphysema type J4 3.9 Active 71437355 Problem senior living current use of insulin Z79.4 Active 035981418 Problem Irritable bowel syndrome with diarrhea K58.0 Active 176284432 Problem Essential (primary) hypertension I10 Active 58851696 Problem Type 2 diabetes mellitus with hyperglycemia E11.65 Active 53463302 Problem Neuropathy G62.9 Active 804290495 Problem Hypothyroid E03.9 Active 50694600 Problem Thrombocytosis D47.3 Active 90583 09 Problem Insomnia G47.00 Active 713507873 Problem Chronic pain G89.29 Active 9399434 1 Problem Depression F32.9 Active 87741305 ALLERGIES No Information ENCOUNTERS Encounter Location Date Diagnosis [facility] [address] [facility] [id number] [address] [place] [address] March, [facility] [address] [facility] [id number] [address] [place] [address] Feb, Type 2 diabetes mellitus wit h hyperglycemia E11.65 [facility] [address] [facility] [id number] [address] [place] [address] Feb, 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 ; Essential (primary) hypertension I10 ; Pulmonary emphysema, unspecified emphysema type J43.9 ; Chronic pain G89.29 ; Controlled substance agreement signed Z79.899 ; Hypothyroid E03.9 ; Neuropathy G62.9 ; Gastroesophageal reflux disease with esophagitis K21.0 ; Overactive bladder N32.81 ; Depression F32.9 and Irritable bowel syndrome with diarrhea K58.0 [place] [address] [facility] [id number] [address] [place] [address] Jan, [place] [address] [facility] [id number] [address] [place] [address] Jan, Controlled substance agreeme nt signed Z79.899 [place] [address] [facility] [id number] [address] [place] [address] Dec, Type 2 diabetes mellitus wit h hyperglycemia E11.65 ; Controlled substance agreement signed Z79.899 ; senior living current use of insulin Z79.4 ; Essential (primary) hypertension I10 ; Hypothyroid E03.9 ; Neuropathy G62.9 ; Depression F32.9 ; Mixed hyperlipidemia E78.2 ; Irritable bowel syndrome with diarrhea K58.0 ; Gastroesophageal reflux disease with esophagitis K21.0 ; Thrombocytosis D47.3 ; Current non-adherence to medical treatment Z91.19 and Overweight (BMI 25.0-29.9) E66.3 [place] [address] [facility] [id number] [address] [place] [address] Dec, Controlled substance agreeme nt signed Z79.899 [place] [address] [facility] [id number] [address] [place] [address] Nov, Type 2 diabetes mellitus wit h hyperglycemia E11.65 and Current non- adherence to medical treatment Z91.19 [place] [address] [facility] [id number] [address] [place] [address] Nov, [place] [address] [facility] [id number] [address] [place] [address] Nov, Chronic pain G89.29 [facility] [address] [facility] [id number] [address] [place] [address] Nov, [facility] [address] [facility] [id number] [address] [place] [address] Nov, Hypothyroid E03.9 [facility] [address] [facility] [id number] [address] [place] [address] Nov, Hypothyroid E03.9 [facility] [address] [facility] [id number] [address] [place] [address] Nov, Pulmonary emphysema, unspeci fied emphysema type J43.9 and Irritable bowel syndrome with diarrhea K58.0 [facility] [address] [facility] [id number] [address] [place] [address] Oct, [facility] [address] [facility] [id number] [address] [place] [address] Oct, [facility] [address] [facility] [id number] [address] [place] [address] Oct, [facility] [address] [facility] [id number] [address] [place] [address] Oct, [facility] [address] [facility] [id number] [address] [place] [address] Oct, Chronic pain G89.29 [facility] [address] [facility] [id number] [address] [place] [address] Oct, Diabetes mellitus E11.9 ; De pression F32.9 ; Mixed hyperlipidemia E78.2 ; Hypotension, unspecified hypotension type I95.9 ; Pulmonary emphysema, unspecified emphysema type J43.9 and Weight loss, unintentional R63.4 [facility] [address] [facility] [id number] [address] [place] [address] Oct, Chronic pain G89.29 [facility] [address] [facility] [id number] [address] [place] [address] Sep, Chronic pain G89.29 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 [address] [place] [id number] [address] [place] [address] Aug, Chronic pain G89.29 [place] [address] [place] [id number] [address] [place] [address] Aug, Overactive bladder N32.81 ; Diabetes mellitus E11.9 and Chronic pain G89.29 [place] [address] [place] [id number] [address] [place] [address] Jul, [place] [address] [place] [id number] [address] [place] [address] Jun, [place] [address] [place] [id number] [address] [place] [address] Jun, [place] [address] [place] [id number] [address] [place] [address] Jun, Hypothyroid E03.9 [facility] [address] [place] [id number] [address] [place] [address] Jun, Diabetes mellitus E11.9 ; Hy pothyroid E03.9 ; Neuropathy G62.9 ; Chronic pain G89.29 and Neck mass R22.1 [facility] [address] [place] [id number] [address] [place] [address] Apr, [facility] [address] [place] [id number] [address] [place] [address] Apr, Acute cystitis without hemat uria N30.00 [facility] [address] [place] [id number] [address] [place] [address] March, [facility] [address] [address] March, [facility] [address] [place] [id number] [address] [place] [address] March, Near syncope R55 [facility] [address] [address] Feb, [facility] [address] [address] Feb, Chronic pain G89.29 [facility] [address] [address] Feb, [facility] [address] [address] Feb, [facility] [address] [address] Jan, Chronic pain G89.29 [facility] [address] [address] Jan, [facility] [address] [place] [id number] [address] [place] [address] Jan, [facility] [address] [address] Jan, Diabetes mellitus E11.9 ; Hy pothyroid E03.9 ; GERD (gastroesophageal reflux disease) K21.9 ; Insomnia G47.00 ; Functional diarrhea K59.1 ; Neuropathy G62.9 ; Depression F32.9 ; Chronic pain G89.29 ; Irritable bowel syndrome with diarrhea K58.0 ; Overactive bladder N32.81 ; Mixed hyperlipidemia E78.[address] [facility] [address] [place] [id number] [address] [place] [address] Dec, [facility] [address] [place] [id number] [address] [place] [address] Dec, [facility] [address] [facility] [id number] [address] [place] [address] Dec, [facility] [address] [facility] [id number] [address] [place] [address] Dec, [facility] [address] [facility] [id number] [address] [place] [address] Dec, Chronic pain G89.29 [facility] [address] [facility] [id number] [address] [place] [address] Dec, [facility] [address] [facility] [id number] [address] [place] [address] Dec, [facility] [address] [place] [id number] [address] [place] [address] Dec, Type 2 diabetes mellitus wit h foot ulcer E11.621 [facility] [address] [facility] [id number] [address] [place] [address] Dec, Type 2 diabetes mellitus wit h foot ulcer E11.621 [facility] [address] [place] [id number] [address] [place] [address] 14 Dec, 2016 HTN (hypertension) I10 ; Dep ression F32.9 ; Type 2 diabetes mellitus with foot ulcer E11.621 ; Functional diarrhea K59.1 ; Irritable bowel syndrome with diarrhea K58.0 ; Chronic pain G89.29 ; Insomnia G47.00 ; Overactive bladder N32.81 ; Mixed hyperlipidemia E78.2 ; Gastroesophageal reflux disease with esophagitis K21.0 and Acquired hypothyroidism E03.9 [facility] [address] [facility] [id number] [address] [place] [address] Nov, [facility] [address] [place] [id number] [address] [place] [address] Oct, [facility] [address] [place] [id number] [address] [place] [address] Oct, [place] [address] [address] Oct, [place] [address] [address] Sep, Functional diarrhea K59.1 ; HTN (hypertension) I10 ; Diabetes mellitus E11.9 ; Depression F32.9 ; Overactive bladder N32.81 ; Mixed hyperlipidemia E78.2 ; Gastroesophageal reflux disease without esophagitis K21.9 ; Chronic pain G89.29 ; Insomnia G47.00 and Acquired hypothyroidism E03.9 [place] [address] [address] Sep, [place] [address] [address] Aug, Encounter for immunization Z 23 [place] [address] [address] Aug, [place] [address] [address] Jul, [place] [address] [address] Jun, Type 2 diabetes mellitus wit hout complications E11.9 ; HTN (hypertension) I10 ; Hypothyroid E03.9 ; Neuropathy G62.9 ; Depression F32.9 ; Chronic pain G89.29 ; GERD (gastroesophageal reflux disease) K21.9 ; Insomnia G47.00 ; Overactive bladder N32.81 ; Mixed hyperlipidemia E78.2 ; Diarrhea of infectious origin A09 and Environmental allergies Z91.09 [place] [address] [address] Apr, [place] [address] [address] March, Hypothyroidism, unspecified E03.9 and Mixed hyperlipidemia E78.2 [place] [address] [address] March, Diabetes mellitus E11.9 ; HT N (hypertension) I10 ; Hypothyroid E03.9 ; Depression F32.9 ; Overactive bladder N32.81 ; Other chronic pain G89.29 ; Lumbago with sciatica, unspecified side M54.40 ; Environmental allergies Z91.09 and Gastroesophageal reflux disease, esophagitis presence not specified K21.9 [place] [address] [place] [id number] [address] [place] [address] March, [place] [address] [place] [id number] [place] [address] Jan, HTN (hypertension) I10 ; Hyp othyroid E03.9 ; Neuropathy G62.9 ; Diabetes mellitus E11.9 ; Chronic pain G89.29 ; GERD (gastroesophageal reflux disease) K21.9 ; Overactive bladder N32.81 and Depression F32.9 [place] [address] [address] Dec, Ear pain, left H92.02 ; HTN (hypertension) I10 ; Hypothyroid E03.9 ; Neuropathy G62.9 ; Diabetes mellitus E11.9 ; Depression F32.9 ; GERD (gastroesophageal reflux disease) K21.9 ; Insomnia G47.00 and Overactive bladder N32.81 [place] [address] [place] [id number] [address] [place] [address] Nov, Overactive bladder N32.81 an d Chronic pain G89.29 [place] [address] [place] [id number] [address] [place] [address] Nov, Kidney failure N19 [place] [address] [place] [id number] [address] [place] [address] Nov, [place] [address] [place] [id number] [address] [place] [address] Nov, [place] [address] [place] [id number] [address] [place] [address] Nov, Diabetes mellitus E11.9 ; De pression F32.9 ; Chronic pain G89.29 ; GERD (gastroesophageal reflux disease) K21.9 ; Insomnia G47.00 ; HTN (hypertension) I10 ; Hypothyroid E03.9 ; COPD (chronic obstructive pulmonary disease) J44.9 ; Bladder incontinence R32 and Incontinence R32 [address] [address] Sep, Type 2 diabetes mellitus wit h foot ulcer E11.621 and Chromosomal abnormality, 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 [address] Sep, [address] [address] Aug, [address] [address] Aug, [address] [address] Aug, HTN (hypertension) I10 ; Enc ounter for immunization Z23 ; Hypothyroid E03.9 ; Neuropathy G62.9 ; Diabetes mellitus E11.9 ; Depression F32.9 ; Chronic pain G89.29 ; GERD (gastroesophageal reflux disease) K21.9 ; Insomnia G47.00 and COPD (chronic obstructive pulmonary disease) J44.[address] [address] Jun, [address] [address] Jun, [address] [address] May, Essential hypertension, ivis gn 401.1 ; Unspecified hypothyroidism 244.9 ; Insomnia, unspecified 780.52 ; Shortness of breath 786.05 ; Depression 311 ; COPD (chronic obstructive pulmonary disease) 496 ; GERD (gastroesophageal reflux disease) 530.81 and Diabetes 1.5, 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 [address] May, [facility] [address] [facility] [id number] [address] [place] [address] May, [facility] [address] [facility] [id number] [address] [place] [address] May, Shortness of breath 786.05 ; Essential hypertension, benign 401.1 ; Diabetes mellitus 250.00 ; Hyperlipidemia 272.4 ; Hypothyroid 244.9 ; Insomnia 780.[address] [facility] [address] [facility] [id number] [address] [place] [address] Apr, [facility] [address] [facility] [id number] [address] [place] [address] March, Shortness of breath 786.05 ; Nausea with vomiting 787.01 ; Essential hypertension, benign 401.1 ; Diabetes mellitus 250.00 ; Hyperlipidemia 272.[address] [facility] [address] [facility] [id number] [address] [place] [address] Feb, [facility] [address] [facility] [id number] [address] [place] [address] Feb, [facility] [address] [facility] [id number] [address] [place] [address] Jan, [facility] [address] [facility] [id number] [address] [place] [address] Jan, [facility] [address] [facility] [id number] [address] [place] [address] Jan, [facility] [address] [facility] [id number] [address] [place] [address] Jan, [facility] [address] [facility] [id number] [address] [place] [address] Jan, [facility] [address] [facility] [id number] [address] [place] [address] Jan, [facility] [address] [facility] [id number] [address] [place] [address] Jan, [facility] [address] [id number] [address] [place] [address], [place] [address] Jan, [facility] [address] [id number] [address] [place] [address], [place] [address] Jan, [facility] [address] [id number] [address] [place] [address], [place] [address] Jan, [facility] [address] [id number] [address] [place] [address], [place] [address] Dec, 2014 [facility] [address] [id number] [address] [place] [address], [place] [address] Dec, 2014 [facility] [address] [id number] [address] [place] [address], [place] [address] Dec, 2014 [facility] [address] [id number] [address] [place] [address], [place] [address] Dec, 2014 [facility] [address] [id number] [address] [place] [address], [place] [address] Dec, 2014 [facility] [address] [id number] [address] [place] [address], [place] [address] Dec, 2014 [facility] [address] [id number] [address] [place] [address], [place] [address] Dec, 2014 [facility] [address] [id number] [address] [place] [address], [place] [address] Dec, 2014 [facility] [address] [id number] [address] [place] [address] Dec, 2014 [facility] [address] [id number] [address] [place] [address], [place] [address] Dec, 2014 [facility] [address] [id number] [address] [place] [address] Oct, [facility] [address] [id number] [address] [place] [address] Oct, [facility] [address] [id number] [address] [place] [address], [place] [address] Oct, [facility] [address] [id number] [address] [place] [address], [place] [address] Oct, [facility] [address] [id number] [address] [place] [address], [place] [address] Oct, [facility] [address] [id number] [address] [place] [address], [place] [address] Oct, [facility] [address] [id number] [address] [place] [address], [place] [address] Oct, [facility] [address] [id number] [address] [place] [address], [place] [address] Oct, [facility] [address] [id number] [address] [place] [address], [place] [address] Oct, [facility] [address] [id number] [address] [place] [address], [place] [address] Oct, [facility] [address] [id number] [address] [place] [address], [place] [address] Oct, [facility] [address] [id number] [address] [place] [address], [place] [address] Oct, [facility] [address] [id number] [address] [place] [address], [place] [address] Oct, [facility] [address] [id number] [address] [place] [address], [place] [address] Oct, [facility] [address] [id number] [address] [place] [address], [place] [address] Sep, [facility] [address] [id number] [address] [place] [address], [place] [address] Sep, [facility] [address] [id number] [address] [place] [address], [place] [address] Sep, [facility] [address] [id number] [address] [place] [address], [place] [address] Sep, [facility] [address] [id number] [address] [place] [address], [place] [address] Sep, [facility] [address] [id number] [address] [place] [address], [place] [address] Sep, [facility] [address] [id number] [address] [place] [address], [place] [address] Sep, [facility] [address] [id number] [address] [place] [address] Sep, [facility] [address] [id number] [address] [place] [address], [place] [address] Sep, [facility] [address] [id number] [address] [place] [address], [place] [address] Aug, [facility] [address] [id number] [address] [place] [address], [place] [address] Aug, [facility] [address] [id number] [address] [place] [id number] Aug, [facility] [address] [id number] [address] [place] [address], [place] [address] Aug, [facility] [address] [id number] [address] [place] [address], [place] [id number] 16 Aug, 2014 [facility] [address] [id number] [address] [place] [id number] Aug, [facility] [address] [id number] [address] [place] [id number] Aug, [facility] [address] [id number] [address] [place] [address], [place] [id number] Aug, [facility] [address] [id number] [address] [place] [address], [place] [address] Aug, [facility] [address] [id number] [address] [place] [address], [place] [id number] 29 Jul, 2014 [facility] [address] [id number] [facility] [place] [id number] 29 Jul, 2013 [facility] [address] [id number] [facility] [place] [address] Jul, 2013 [facility] [address] [id number] [facility] [place] [address] Jul, 2013 [facility] [address] [id number] [address] [place] [address], [place] [address] Jul, 2013 [facility] [address] [id number] [address] [place] [address], [place] [address] Jul, 2013 [facility] [address] [id number] [address] [place] [address], [place] [id number] Jul, [facility] [address] [id number] [address] [place] [address], [place] [id number] Jul, [facility] [address] [id number] [address] [place] [address], [place] [id number] Jul, [facility] [address] [id number] [address] [place] [address], [place] [id number] Jul, [facility] [address] [id number] [address] [place] [address], [place] [address] Jun, [facility] [address] [id number] [address] [place] [address], [place] [id number] Jun, [facility] [address] [id number] [address] [place] [address], [place] [id number] Jun, [facility] [address] [id number] [address] [place] [address], [place] [address] Jun, [facility] [address] [id number] [address] [place] [address], [place] [id number] Jun, [facility] [address] [id number] [address] [place] [address], [place] [id number] Jun, [facility] [address] [id number] [address] [place] [address], [place] [id number] Jun, [facility] [address] [id number] [facility] [place] [address] Jun, [facility] [facility] [address] [id number] [address] [place] [address], [place] [address] Jun, [facility] [address] [id number] [address] [place] [address], [place] [address] Jun, [facility] [address] [id number] [address] [place] [address], [place] [address] Jun, [facility] [address] [id number] [address] [place] [address], [place] [address] Jun, [facility] [address] [id number] [address] [place] [address], [place] [address] May, [facility] [address] [id number] [address] [place] [address], [place] [address] May, [facility] [address] [id number] [address] [place] [address], [place] [address] May, [facility] [address] [id number] [address] [place] [address], [place] [address] May, [facility] [address] [id number] [address] [place] [address], [place] [address] May, [facility] [address] [id number] [address] [place] [address], [place] [address] May, [facility] [address] [id number] [address] [place] [address], [place] [address] March, [facility] [address] [id number] [address] [place] [address], [place] [address] March, [facility] [address] [id number] [address] [place] [address], [place] [address] March, [facility] [address] [id number] [address] [place] [address], [place] [address] March, [facility] [address] [id number] [address] [place] [address], [place] [address] March, [facility] [address] [id number] [address] [place] [address], [place] [address] March, [facility] [address] [id number] [address] [place] [address], [place] [address] Feb, [facility] [address] [id number] [address] [place] [address], [place] [address] Feb, [facility] [address] [id number] [address] [place] [address], [place] [address] Feb, [facility] [address] [id number] [address] [place] [address], [place] [address] Feb, [facility] [address] [id number] [address] [place] [address], [place] [address] Jan, [facility] [address] [id number] [address] [place] [address], [place] [address] Jan, [facility] [address] [id number] [address] [place] [address], [place] [address] Jan, [facility] [address] [id number] [address] [place] [address], [place] [address] Jan, [facility] [address] [id number] [address] [place] [address], [place] [address] Jan, [facility] [address] [id number] [address] [place] [address], [place] [address] Jan, [facility] [address] [id number] [address] [place] [address], [place] [address] Jan, [facility] [address] [id number] [address] [place] [address], [place] [address] Jan, [facility] [address] [id number] [address] [place] [address], [place] [address] Jan, [facility] [address] [id number] [address] [place] [address], [place] [address] Jan, [facility] [address] [id number] [address] [place] [address], [place] [address] Jan, [facility] [address] [id number] [address] [place] [address], [place] [address] Jan, [facility] [address] [id number] [address] [place] [address], [place] [address] Dec, [facility] [address] [id number] [address] [place] [address], [place] [address] Dec, [facility] [address] [id number] [address] [place] [address], [place] [address] Dec, [facility] [address] [id number] [address] [place] [address], [place] [address] Dec, [facility] [address] [id number] [address] [place] [address], [place] [address] Dec, [facility] [address] [id number] [address] [place] [address], [place] [address] Dec, [facility] [address] [id number] [address] [place] [address], [place] [address] Nov, [facility] [address] [id number] [address] [place] [address], [place] [address] Nov, [facility] [address] [id number] [address] [place] [address], [place] [address] Oct, [facility] [address] [id number] [address] [place] [address], [place] [address] Oct, [facility] [address] [id number] [address] [place] [address], [place] [address] Oct, [facility] [address] [id number] [address] [place] [address], [place] [address] Oct, [facility] [address] [id number] [address] [place] [address], [place] [address] Oct, [facility] [address] [id number] [address] [place] [address] Oct, [facility] [address] [id number] [address] [place] [address], [place] [address] Sep, [facility] [address] [id number] [address] [place] [address] Sep, [facility] [address] [id number] [address] [place] [address], [place] [address] Sep, [facility] [address] [id number] [address] [place] [address] Sep, [facility] [address] [id number] [address] [place] [address], [place] [address] Aug, [facility] [address] [id number] [address] [place] [address], [place] [address] Aug, [facility] [address] [id number] [address] [place] [address], [place] [address] Aug, [facility] [address] [id number] [address] [place] [address], [place] [address] Jul, [facility] [address] [id number] [address] [place] [id number] 14 Jul, 2013 [facility] [address] [id number] [address] [place] [address], [place] [address] Jul, [facility] [address] [id number] [address] [place] [id number] Jun, [facility] [address] [id number] [address] [place] [address] Jun, [facility] [address] [id number] [address] [place] [address], [place] [address] Jun, [facility] [address] [id number] [address] [place] [address] Apr, [facility] [address] [id number] [address] [place] [address], [place] [address] Apr, [facility] [address] [id number] [address] [place] [address], [place] [address] March, [facility] [address] [id number] [address] [place] [address], [place] [address] March, [facility] [address] [id number] [address] [place] [address], [place] [address] March, [facility] [address] [id number] [address] [place] [address], [place] [address] March, [facility] [address] [id number] [address] [place] [address], [place] [address] Feb, [facility] [address] [id number] [address] [place] [address], [place] [address] Jan, [facility] [address] [id number] [address] [place] [address], [place] [address] Dec, [facility] [address] [id number] [address] [place] [address], [place] [address] 08 Dec, 2012 [facility] [address] [id number] [address] [place] [address], [place] [address] Dec, [facility] [address] [id number] [address] [place] [address], [place] [address] Nov, [facility] [address] [id number] [address] [place] [address], [place] [address] Oct, [facility] [address] [id number] [address] [place] [address], [place] [address] Oct, [facility] [address] [id number] [address] [place] [address], [place] [address] Sep, [facility] [address] [id number] [address] [place] [address], [place] [address] Sep, [facility] [address] [id number] [address] [place] [address], [place] [address] Sep, [facility] [address] [id number] [address] [place] [address] [address] Sep, [facility] [address] [id number] [address] [place] [address], [place] [address] Sep, [facility] [address] [id number] [address] [place] [address], [place] [address] Sep, [facility] [address] [id number] [address] [place] [address], [place] [address] Sep, [facility] [address] [id number] [address] [place] [address], [place] [address] Aug, [facility] [address] [id number] [address] [place] [address], [place] [address] Aug, [facility] [address] [id number] [address] [place] [address], [place] [address] Aug, [facility] [address] [id number] [address] [place] [address], [place] [address] Aug, [facility] [address] [id number] [address] [place] [address], [place] [address] Aug, [facility] [address] [id number] [address] [place] [address], [place] [address] Aug, [facility] [address] [id number] [address] [place] [address], [place] [address] Aug, [facility] [address] [id number] [address] [place] [address], [place] [address] Aug, [facility] [address] [id number] [address] [place] [address] Jul, [facility] [address] [id number] [address] [place] [address], [place] [address] Jul, [facility] [address] [id number] [address] [place] [address], [place] [address] Jun, [facility] [address] [id number] [address] [place] [address], [place] [address] May, [facility] [address] [id number] [address] [place] [address], [place] [address] Apr, [facility] [address] [id number] [address] [place] [address], [place] [address] Apr, [facility] [address] [id number] [address] [place] [address], [place] [address] Apr, [facility] [address] [id number] [address] [place] [address], [place] [address] March, [facility] [address] [id number] [address] [place] [address], [place] [address] March, [facility] [address] [id number] [address] [place] [address], [place] [address] March, [facility] [address] [id number] [address] [place] [address], [place] [address] March, [facility] [address] [id number] [address] [place] [address], [place] [address] March, [facility] [address] [id number] [address] [place] [address], [place] [address] March, [facility] [address] [id number] [address] [place] [address], [place] [address] March, [facility] [address] [id number] [address] [place] [address], [place] [address] Jan, [facility] [address] [id number] [address] [place] [address], [place] [address] Jan, [facility] [address] [id number] [address] [place] [address], [place] [address] Jan, [facility] [address] [id number] [address] [place] [address], [place] [address] Jan, [facility] [address] [id number] [address] [place] [address], [place] [address] Jan, [facility] [address] [id number] [address] [place] [address], [place] [address] Dec, [facility] [address] [id number] [address] [place] [address], [place] [address] Dec, [facility] [address] [id number] [address] [place] [address], [place] [address] Nov, [facility] [address] [id number] [address] [place] [address], [place] [address] Nov, [facility] [address] [id number] [address] [place] [address], [place] [address] Nov, [facility] [address] [id number] [address] [place] [address], [place] [address] Nov, [facility] [address] [id number] [address] [place] [address], [place] [address] Oct, [facility] [address] [id number] [address] [place] [address], [place] [address] Oct, [facility] [address] [id number] [address] [place] [address], [place] [address] Sep, [facility] [address] [id number] [address] [place] [address], [place] [address] Sep, [facility] [address] [id number] [address] [place] [address], [place] [address] Sep, [facility] [address] [id number] [address] [place] [address], [place] [address] May, [facility] [address] [id number] [address] [place] [address], [place] [address] Nov, [facility] [address] [id number] [address] [place] [address], [place] [address] Oct, [facility] [address] [id number] [address] [place] [address], [place] [address] Oct, [facility] [address] [id number] [address] [place] [address], [place] [address] Oct, [facility] [address] [id number] [address] [place] [id number] Sep, [facility] [address] [id number] [address] [place] [id number] Sep, [facility] [address] [id number] [address] [place] [id number] Aug, [facility] [address] [id number] [address] [place] [address] March, [facility] [address] [id number] [address] [place] [address] Oct, [facility] [address] [id number] [address] [place] [address] Oct, [facility] [address] [id number] [address] [place] [address] Oct, [facility] [address] [id number] [address] [place] [id number] Oct, [facility] [address] [id number] [address] [place] [address] Sep, [facility] [address] [id number] [address] [place] [id number] Sep, [facility] [address] [id number] [address] [place] [id number] Sep, [facility] [address] [id number] [address] [place] [address] Aug, [facility] [address] [id number] [address] [place] [id number] Aug, [facility] [address] [id number] [address] [place] [id number] Aug, [facility] [address] [id number] [address] [place] [id number] Jan, IMMUNIZATIONS No Known Immunizations SOCIAL HISTORY Never Assessed REASON FOR VISIT PA for CT soft tissue neck w/ & w/o PLAN OF CARE VITAL SIGNS MEDICATIONS Unknown [...]
--- OUTSIDE RECORDS SUMMARY | 2020-06-13 16:34 | XMS REPORT ---
Author Author Jah PARKER Organization [facility] Address [address] [place] [address] Care Team Providers Care Rn Occupational Name Role Phone PARKERSHAYLEE MckeonELE Unavailable PROBLEMS Type Condition ICD9-CM Code TPS19-GZ Code Onset Dates Condition S tatus SNOMED Code Problem Gastroesophageal reflux disease with esophagitis K 21.0 Active 628385262 Problem [facility] current use of insulin Z79.4 Active 537227078 Problem Irritable bowel syndrome with diarrhea K58.0 Active 196720117 Problem Diabetes mellitus E11.9 Active 73 116176 Problem Recurrent major depressive disorder, in partial remission F33.41 Active 72866692 Problem Essential (primary) hypertension I10 Active 52735281 Problem Type 2 diabetes mellitus with hyperglycemia E11.65 Active 08180854 Problem Current non-adherence to medical treatment Z91.19 Active 0186321 Problem Pulmonary emphysema, unspecified emphysema type J4 3.9 Active 44436877 Problem Neuropathy G62.9 Active 645788319 Problem Hypothyroid E03.9 Active 46916633 Problem Thrombocytosis D47.3 Active 96999 09 Problem Overactive bladder N32.81 Active 2 52376512 Problem Chronic pain G89.29 Active 3381609 1 Problem Mixed hyperlipidemia E78.2 Active 233824666 ALLERGIES Substance Reaction Event Type Date Status Trilipix nausea Drug Allergy Oct, Active Niacin rash Drug Allergy Oct, Active Metformin HCl diarrhea Drug Allergy Oct, Active Januvia diarrhea Drug Allergy Oct, Active Gemfibrozil diarrhea Drug Allergy Oct, Active Actos diarrhea Drug Allergy Oct, Active ENCOUNTERS Encounter Location Date Diagnosis [facility] [address] [facility] [id number] [address] [place] [phone] March, [facility] [address] [facility] [id number] [address] [place] [phone] March, Hypothyroid E03.9 [place] [address] [facility] [id number] [address] [place] [address] March, Diabetes mellitus E11.9 and Hypothyroid E03.9 [place] [address] [facility] [id number] [address] [place] [phone] March, Diabetes mellitus E11.9 [place] [address] [facility] [id number] [address] [place] [address] March, Hypothyroid E03.9 and Elevat ed liver enzymes R74.8 [place] [address] [facility] [id number] [address] [place] [address] March, Type 2 diabetes mellitus wit h hyperglycemia E11.65 ; local [employer] current use of insulin Z79.4 ; Pulmonary emphysema, unspecified emphysema type J43.9 ; Hypothyroid E03.9 ; Neuropathy G62.9 ; Mixed hyperlipidemia E78.2 ; Chronic pain G89.29 ; Gastroesophageal reflux disease with esophagitis K21.0 ; Irritable bowel syndrome with diarrhea K58.0 ; Overactive bladder N32.81 and Recurrent major depressive disorder, in partial remission F33.41 [place] [address] [facility] [id number] [address] [place] [phone] Feb, Chronic pain G89.29 [place] [address] [facility] [id number] [address] [place] [address] Feb, Type 2 diabetes mellitus wit h hyperglycemia E11.65 and Skin lesion of scalp L98.9 [place] [address] [facility] [id number] [address] [place] [phone] Feb, [place] [address] 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 [id number] [address] [place] [phone] Jan, [place] [address] [facility] [id number] [address] [place] [phone] Jan, Controlled substance agreeme nt signed Z79.899 [place] [address] [facility] [id number] [address] [place] [phone] 08 Dec, 2017 Type 2 diabetes mellitus [...] and Overweight (BMI 25.0-29.9) E66.3 [place] [address] [facility] [id number] [address] [place] [id number] 02 Dec, 2017 Controlled substance agreeme nt signed Z79.899 [place] [address] [place] [id number] [address] [place] [phone] Nov, Type 2 diabetes mellitus wit h hyperglycemia E11.65 and Current non- adherence to medical treatment Z91.19 [place] [address] [facility] [id number] [address] [place] [address] Nov, [place] [address] [facility] [id number] [address] [place] [phone] Nov, Chronic pain G89.29 [place] [address] [facility] [id number] [address] [place] [phone] Nov, [place] [address] [facility] [id number] [address] [place] [phone] Nov, Hypothyroid E03.9 [place] [address] [facility] [id number] [address] [place] [address] Nov, Hypothyroid E03.9 [facility] [address] [facility] [id number] [address] [place] [phone] Nov, Pulmonary emphysema, unspeci fied emphysema type J43.9 and Irritable bowel syndrome with diarrhea K58.0 [facility] [address] [facility] [id number] [address] [place] [address] Oct, [facility] [address] [facility] [id number] [address] [place] [phone] Oct, [place] [address] [facility] [id number] [address] [place] [phone] Oct, [place] [address] [facility] [id number] [address] [place] [phone] Oct, [place] [address] [place] [id number] [address] [place] [phone] Oct, Chronic pain G89.29 [place] [address] [facility] [id number] [address] [place] [address] Oct, Diabetes mellitus E11.9 ; De pression F32.9 ; Mixed hyperlipidemia E78.2 ; Hypotension, unspecified hypotension type I95.9 ; Pulmonary emphysema, unspecified emphysema type J43.9 and Weight loss, unintentional R63.4 [place] [address] [facility] [id number] [address] [place] [address] Oct, Chronic pain G89.29 [place] [address] [facility] [id number] [address] [place] [phone] Sep, Chronic pain G89.29 [place] [address] [place] [id number] [address] [place] [phone] Sep, Hypothyroid E03.9 and Diabet es mellitus E11.9 [place] [address] 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 [id number] [address] [place] [phone] Aug, Chronic pain G89.29 [facility] [address] [place] [id number] [address] [place] [id number] Aug, Overactive bladder N32.81 ; Diabetes mellitus E11.9 and Chronic pain G89.29 [facility] [address] [facility] [id number] [address] [place] [phone] Jul, [facility] [address] [place] [id number] [address] [place] [phone] Jun, [facility] [address] [place] [id number] [address] [place] [phone] Jun, [facility] [address] [place] [id number] [address] [place] [id number] Jun, Hypothyroid E03.9 [facility] [address] [place] [id number] [place] [address] Jun, Diabetes mellitus E11.9 ; Hy pothyroid E03.9 ; Neuropathy G62.9 ; Chronic pain G89.29 and Neck mass R22.1 [facility] [address] [place] [id number] [address] [place] [phone] Apr, [facility] [address] [place] [id number] [address] [place] [address] Apr, Acute cystitis without hemat uria N30.00 [facility] [address] [facility] [id number] [address] [place] [phone] March, [facility] [address] [place] [id number] [address] [place] [phone] March, [facility] [address] [place] [id number] [address] [place] [phone] March, Near syncope R55 [facility] [address] [place] [id number] [address] [place] [phone] Feb, [facility] [address] [place] [id number] [address] [place] [phone] Feb, Chronic pain G89.29 [facility] [id number] [place] [address] Feb, [facility] [address] [place] [id number] [address] [place] [phone] Feb, [facility] [address] [place] [id number] [address] [place] [address] Jan, Chronic pain G89.29 [facility] [address] [place] [id number] [address] [place] [phone] Jan, [facility] [address] [place] [id number] [address] [place] [phone] Jan, [facility] [address] [place] [id number] [address] [place] [phone] Jan, Diabetes mellitus E11.9 ; Hy pothyroid E03.9 ; GERD (gastroesophageal reflux disease) K21.9 ; Insomnia G47.00 ; Functional diarrhea K59.1 ; Neuropathy G62.9 ; Depression F32.9 ; Chronic pain G89.29 ; Irritable bowel syndrome with diarrhea K58.0 ; Overactive bladder N32.81 ; Mixed hyperlipidemia E78.2 and Bronchitis J40 [facility] [address] [place] [id number] [address] [place] [id number] Dec, [facility] [address] [place] [id number] [address] [place] [address] Dec, [facility] [address] [place] [id number] [address] [place] [phone] Dec, [facility] [address] [place] [id number] [address] [place] [address] Dec, [facility] [address] [facility] [id number] [address] [place] [address] Dec, Chronic pain G89.29 [facility] [address] [facility] [id number] [address] [place] [phone] Dec, [facility] [address] [place] [id number] [address] [place] [id number] Dec, [facility] [address] [place] [id number] [address] [place] [address] Dec, Type 2 diabetes mellitus wit h foot ulcer E11.621 [facility] [address] [place] [id number] [address] [place] [address] 17 Dec, 2016 Type 2 diabetes mellitus wit h foot ulcer E11.621 [facility] [id number] [place] [address] Dec, HTN (hypertension) I10 ; Dep ression F32.9 ; Type 2 diabetes mellitus with foot ulcer E11.621 ; Functional diarrhea K59.1 ; Irritable bowel syndrome with diarrhea K58.0 ; Chronic pain G89.29 ; Insomnia G47.00 ; Overactive bladder N32.81 ; Mixed hyperlipidemia E78.2 ; Gastroesophageal reflux disease with esophagitis K21.0 and Acquired hypothyroidism E03.9 [facility] [address] [place] [id number] [address] [place] [phone] Nov, [facility] [id number] [place] [address] Oct, [facility] [id number] [place] [address] Oct, [facility] [address] [place] [id number] [address] [place] [address] Oct, [facility] [address] [place] [id number] [address] [place] [address] Sep, Functional diarrhea K59.1 ; HTN (hypertension) I10 ; Diabetes mellitus E11.9 ; Depression F32.9 ; Overactive bladder N32.81 ; Mixed hyperlipidemia E78.2 ; Gastroesophageal reflux disease without esophagitis K21.9 ; Chronic pain G89.29 ; Insomnia G47.00 and Acquired hypothyroidism E03.9 [facility] [address] [address] Sep, [place] [address] [address] Aug, Encounter for immunization Z 23 [place] [address] [address] Aug, [place] [address] [address] Jul, [place] [address] [address] Jun, Type 2 diabetes mellitus wit hout complications E11.9 ; HTN (hypertension) I10 ; Hypothyroid E03.9 ; Neuropathy G62.9 ; Depression F32.9 ; Chronic pain G89.29 ; GERD (gastroesophageal reflux disease) K21.9 ; Insomnia G47.00 ; Overactive bladder N32.81 ; Mixed hyperlipidemia E78.2 ; Diarrhea of infectious origin A09 and Environmental allergies Z91.09 [place] [address] [address] Apr, [place] [address] [address] March, Hypothyroidism, unspecified E03.9 and Mixed hyperlipidemia E78.2 [place] [address] [address] March, Diabetes mellitus E11.9 ; HT N (hypertension) I10 ; Hypothyroid E03.9 ; Depression F32.9 ; Overactive bladder N32.81 ; Other chronic pain G89.29 ; Lumbago with sciatica, unspecified side M54.40 ; Environmental allergies Z91.09 and Gastroesophageal reflux disease, esophagitis presence not specified K21.9 [place] [address] [place] [id number] [address] [place] [phone] March, [place] [address] [address] Jan, HTN (hypertension) I10 ; Hyp othyroid E03.9 ; Neuropathy G62.9 ; Diabetes mellitus E11.9 ; Chronic pain G89.29 ; GERD (gastroesophageal reflux disease) K21.9 ; Overactive bladder N32.81 and Depression F32.9 [place] [address] [address] 12 Dec, 2015 Ear pain, left H92.02 ; HTN (hypertension) I10 ; Hypothyroid E03.9 ; Neuropathy G62.9 ; Diabetes mellitus E11.9 ; Depression F32.9 ; GERD (gastroesophageal reflux disease) K21.9 ; Insomnia G47.00 and Overactive bladder N32.81 [place] [address] [address] Nov, Overactive bladder N32.81 an d Chronic pain G89.29 [place] [address] [address] Nov, Kidney failure N19 [place] [address] [address] Nov, [place] [address] [address] Nov, [place] [address] [address] Nov, Diabetes mellitus E11.9 ; De pression F32.9 ; Chronic pain G89.29 ; GERD (gastroesophageal reflux disease) K21.9 ; Insomnia G47.00 ; HTN (hypertension) I10 ; Hypothyroid E03.9 ; COPD (chronic obstructive pulmonary disease) J44.9 ; Bladder incontinence R32 and Incontinence R32 [place] [address] [address] Sep, Type 2 diabetes mellitus wit h foot ulcer E11.621 and Chromosomal abnormality, 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 [place] [address] [address] Sep, [place] [address] [address] Aug, [address] [address] Aug, [place] [address] [address] Aug, HTN (hypertension) I10 ; Enc ounter for immunization Z23 ; Hypothyroid E03.9 ; Neuropathy G62.9 ; Diabetes mellitus E11.9 ; Depression F32.9 ; Chronic pain G89.29 ; GERD (gastroesophageal reflux disease) K21.9 ; Insomnia G47.00 and COPD (chronic obstructive pulmonary disease) J44.[address] [address] Jun, [place] [address] [address] Jun, [address] [address] May, Essential hypertension, ivis gn 401.1 ; Unspecified hypothyroidism 244.9 ; Insomnia, unspecified 780.52 ; Shortness of breath 786.05 ; Depression 311 ; COPD (chronic obstructive pulmonary disease) 496 ; GERD (gastroesophageal reflux disease) 530.81 and Diabetes 1.5, 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 [id number] [address] [place] [address] March, Shortness of breath 786.05 ; Nausea with vomiting 787.01 ; Essential hypertension, benign 401.1 ; Diabetes mellitus 250.00 ; Hyperlipidemia 272.4 and Hypothyroid 244.9 [facility] [address] [id number] [address] [place] [address] Feb, [facility] [address] [id number] [address] [place] [address] Feb, [facility] [address] [facility] [id number] [address] [place] [address] Jan, [facility] [address] [id number] [address] [place] [address] Jan, [facility] [address] [id number] [address] [place] [address] Jan, [facility] [address] [facility] [id number] [address] [place] [phone] Jan, [facility] [address] [id number] [address] [place] [phone] Jan, [facility] [address] [id number] [address] [place] [phone] Jan, [facility] [address] [id number] [address] [place] [phone] Jan, [facility] [address] [facility] [id number] [address] [place] [id number] Jan, [facility] [address] [facility] [id number] [address] [place] [id number] Jan, [facility] [address] [id number] [address] [place] [address], [place] [address] Jan, [facility] [address] [id number] [address] [place] [address], [place] [address] Dec, 2014 [facility] [address] [id number] [address] [place] [address], [place] [address] Dec, 2014 [facility] [address] [id number] [address] [place] [address], [place] [address] Dec, 2014 [facility] [address] [id number] [address] [place] [address], [place] [address] Dec, 2014 [facility] [address] [id number] [address] [place] [address], [place] [address] Dec, 2014 [facility] [address] [id number] [address] [place] [address], [place] [address] Dec, 2014 [facility] [address] [id number] [address] [place] [address], [place] [address] Dec, 2014 [facility] [address] [id number] [address] [place] [address], [place] [address] Dec, 2014 [facility] [address] [id number] [address] [place] [address], [place] [address] Dec, 2014 [facility] [address] [id number] [address] [place] [address], [place] [address] Dec, 2014 [facility] [address] [id number] [address] [place] [address], [place] [address] Oct, [facility] [address] [id number] [address] [place] [address], [place] [address] Oct, [facility] [address] [id number] [address] [place] [address], [place] [address] Oct, [facility] [address] [id number] [address] [place] [address], [place] [address] Oct, [facility] [address] [id number] [address] [place] [address], [place] [address] 08 Oct, 2014 [facility] [address] [id number] [address] [place] [address], [place] [address] Oct, [facility] [address] [id number] [address] [place] [address], [place] [address] Oct, [facility] [address] [id number] [address] [place] [address], [place] [address] Oct, [facility] [address] [id number] [address] [place] [address], [place] [address] Oct, [facility] [address] [id number] [address] [place] [address], [place] [address] Oct, [facility] [address] [id number] [address] [place] [address], [place] [address] Oct, [facility] [address] [id number] [address] [place] [address], [place] [address] Oct, [facility] [address] [id number] [address] [place] [address], [place] [address] Oct, [facility] [address] [id number] [address] [place] [address], [place] [address] Oct, [facility] [address] [id number] [address] [place] [address], [place] [address] Sep, [facility] [address] [id number] [address] [place] [address], [place] [address] Sep, [facility] [address] [id number] [address] [place] [address], [place] [address] Sep, [facility] [address] [id number] [address] [place] [address], [place] [address] Sep, [facility] [address] [id number] [address] [place] [address], [place] [address] Sep, [facility] [address] [id number] [address] [place] [address], [place] [address] 17 Sep, 2014 [facility] [address] [id number] [address] [place] [address], [place] [address] Sep, [facility] [address] [id number] [address] [place] [address], [place] [address] Sep, [facility] [address] [id number] [address] [place] [address], [place] [address] Sep, [facility] [address] [id number] [address] [place] [address], [place] [address] Aug, [facility] [address] [id number] [address] [place] [address], [place] [address] Aug, [facility] [address] [id number] [address] [place] [address], [place] [address] Aug, [facility] [address] [id number] [address] [place] [address], [place] [address] Aug, [facility] [address] [id number] [address] [place] [address], [place] [address] Aug, [facility] [address] [id number] [address] [place] [address], [place] [address] Aug, [facility] [address] [id number] [address] [place] [address], [place] [address] Aug, [facility] [address] [id number] [address] [place] [address], [place] [address] Aug, [facility] [address] [id number] [address] [place] [address], [place] [address] Aug, [facility] [address] [id number] [address] [place] [address], [place] [address] 29 Jul, 2014 [facility] [address] [id number] [address] [place] [address], [place] [address] 29 Jul, 2014 [facility] [address] [id number] [address] [place] [address], [place] [address] Jul, [facility] [address] [id number] [address] [place] [address], [place] [address] Jul, [facility] [address] [id number] [address] [place] [address], [place] [address] Jul, [facility] [address] [id number] [address] [place] [address], [place] [address] Jul, [facility] [address] [id number] [address] [place] [address], [place] [address] Jul, [facility] [address] [id number] [address] [place] [address], [place] [address] Jul, [facility] [address] [id number] [address] [place] [address], [place] [address] Jul, [facility] [address] [id number] [address] [place] [address], [place] [address] Jul, [facility] [address] [id number] [address] [place] [address], [place] [address] Jun, [facility] [address] [id number] [address] [place] [address], [place] [address] Jun, [facility] [address] [id number] [address] [place] [address], [place] [address] Jun, [facility] [address] [id number] [address] [place] [address], [place] [address] Jun, [facility] [address] [id number] [address] [place] [address], [place] [address] Jun, [facility] [address] [id number] [address] [place] [address], [place] [address] Jun, [facility] [address] [id number] [address] [place] [address], [place] [address] Jun, [facility] [address] [id number] [address] [place] [address], [place] [address] Jun, [facility] [address] [id number] [address] [place] [address], [place] [address] Jun, [facility] [address] [id number] [address] [place] [address], [place] [address] Jun, [facility] [address] [id number] [address] [place] [address], [place] [address] Jun, [facility] [address] [id number] [address] [place] [address], [place] [address] Jun, [facility] [address] [id number] [address] [place] [address], [place] [address] May, [facility] [address] [id number] [address] [place] [address], [place] [address] May, [facility] [address] [id number] [address] [place] [address], [place] [address] May, [facility] [address] [id number] [address] [place] [address], [place] [address] May, [facility] [address] [id number] [address] [place] [address], [place] [address] May, [facility] [address] [id number] [address] [place] [address], [place] [address] May, [facility] [address] [id number] [address] [place] [address], [place] [address] March, [facility] [address] [id number] [address] [place] [address], [place] [address] March, [facility] [address] [id number] [address] [place] [address], [place] [address] March, [facility] [address] [id number] [address] [place] [address], [place] [address] March, [facility] [address] [id number] [address] [place] [address], [place] [address] March, [facility] [address] [id number] [address] [place] [address], [place] [address] March, [facility] [address] [id number] [address] [place] [address], [place] [address] Feb, [facility] [address] [id number] [facility] [place] [address] Feb, [facility] [address] [id number] [facility] [place] [address] Feb, [facility] [address] [id number] [facility] [place] [address] Feb, [facility] [address] [id number] [facility] [place] [address] Jan, [facility] [address] [id number] [facility] [place] [address] Jan, [facility] [address] [id number] [address] [place] [address], [place] [address] Jan, [facility] [address] [id number] [address] [place] [address], [place] [address] Jan, [facility] [address] [id number] [address] [place] [address], [place] [address] Jan, [facility] [address] [id number] [address] [place] [address], [place] [address] Jan, [facility] [address] [id number] [address] [place] [address], [place] [address] Jan, [facility] [address] [id number] [address] [place] [address], [place] [address] Jan, [facility] [address] [id number] [address] [place] [address], [place] [address] Jan, [facility] [address] [id number] [address] [place] [address], [place] [address] Jan, [facility] [address] [id number] [address] [place] [address], [place] [address] Jan, [facility] [address] [id number] [address] [place] [address], [place] [address] Jan, [facility] [address] [id number] [address] [place] [address], [place] [address] Dec, [facility] [address] [id number] [address] [place] [address], [place] [address] Dec, [facility] [address] [id number] [address] [place] [address], [place] [address] Dec, [facility] [address] [id number] [address] [place] [address], [place] [address] Dec, [facility] [address] [id number] [address] [place] [address], [place] [address] Dec, [facility] [address] [id number] [address] [place] [address], [place] [address] Dec, [facility] [address] [id number] [address] [place] [address], [place] [address] Nov, [facility] [address] [id number] [address] [place] [address], [place] [address] Nov, [facility] [address] [id number] [address] [place] [address], [place] [address] Oct, [facility] [address] [id number] [address] [place] [address], [place] [address] Oct, [facility] [address] [id number] [address] [place] [address], [place] [address] Oct, [facility] [address] [id number] [address] [place] [address], [place] [address] Oct, [facility] [address] [id number] [address] [place] [address], [place] [address] Oct, [facility] [address] [id number] [address] [place] [address], [place] [address] Oct, [facility] [address] [id number] [address] [place] [address], [place] [address] Sep, [facility] [address] [id number] [address] [place] [address], [place] [address] Sep, [facility] [address] [id number] [address] [place] [address], [place] [address] Sep, [facility] [address] [id number] [address] [place] [address], [place] [address] Sep, [facility] [address] [id number] [address] [place] [address], [place] [address] Aug, [facility] [address] [id number] [address] [place] [address], [place] [address] Aug, [facility] [address] [id number] [address] [place] [address], [place] [address] Aug, [facility] [address] [id number] [address] [place] [address], [place] [address] Jul, [facility] [address] [id number] [address] [place] [address], [place] [address] 14 Jul, 2013 [facility] [address] [id number] [address] [place] [address], [place] [address] Jul, [facility] [address] [id number] [address] [place] [address], [place] [address] Jun, [facility] [address] [id number] [address] [place] [address], [place] [address] Jun, [facility] [address] [id number] [address] [place] [address], [place] [address] Jun, [facility] [address] [id number] [address] [place] [address], [place] [address] Apr, [facility] [address] [id number] [address] [place] [address], [place] [address] Apr, [facility] [address] [id number] [address] [place] [address], [place] [address] March, [facility] [address] [id number] [address] [place] [address], [place] [address] March, [facility] [address] [id number] [address] [place] [address], [place] [address] March, [facility] [address] [id number] [address] [place] [address], [place] [address] March, [facility] [address] [id number] [address] [place] [address], [place] [address] Feb, [facility] [address] [id number] [address] [place] [address], [place] [address] Jan, [facility] [address] [id number] [address] [place] [address], [place] [address] Dec, [facility] [address] [id number] [address] [place] [address], [place] [address] Dec, [facility] [address] [id number] [address] [place] [address], [place] [address] Dec, [facility] [address] [id number] [address] [place] [address], [place] [address] Nov, [facility] [address] [id number] [address] [place] [address], [place] [address] Oct, [facility] [address] [id number] [address] [place] [address], [place] [address] Oct, [facility] [address] [id number] [address] [place] [address], [place] [address] Sep, [facility] [address] [id number] [address] [place] [address], [place] [address] Sep, [facility] [address] [id number] [address] [place] [address], [place] [address] Sep, [facility] [address] [id number] [address] [place] [address], [place] [address] Sep, [facility] [address] [id number] [address] [place] [address], [place] [address] Sep, [facility] [address] [id number] [address] [place] [address], [place] [address] Sep, [facility] [address] [id number] [address] [place] [address], [place] [address] 05 Sep, 2012 [facility] [address] [id number] [address] [place] [address], [place] [address] 16 Aug, 2012 [facility] [address] [id number] [address] [place] [address], [place] [address] 16 Aug, 2012 [facility] [address] [id number] [address] [place] [address], [place] [address] 10 Aug, 2012 [facility] [address] [id number] [address] [place] [address], [place] [address] 10 Aug, 2012 [facility] [address] [id number] [address] [place] [address], [place] [address] 08 Aug, 2012 [facility] [address] [id number] [address] [place] [address], [place] [address] 08 Aug, 2012 [facility] [address] [id number] [address] [place] [address], [place] [address] Aug, [facility] [address] [id number] [address] [place] [address], [place] [address] Aug, [facility] [address] [id number] [address] [place] [address], [place] [address] Jul, [facility] [address] [id number] [address] [place] [address], [place] [address] Jul, [facility] [address] [id number] [address] [place] [address], [place] [address] Jun, [facility] [address] [id number] [address] [place] [address], [place] [address] May, [facility] [address] [id number] [address] [place] [address], [place] [address] Apr, [facility] [address] [id number] [address] [place] [address], [place] [address] Apr, [facility] [address] [id number] [address] [place] [address], [place] [address] Apr, [facility] [address] [id number] [address] [place] [address], [place] [address] March, [facility] [address] [id number] [address] [place] [address], [place] [address] March, [facility] [address] [id number] [address] [place] [address], [place] [address] March, [facility] [address] [id number] [address] [place] [address], [place] [address] March, [facility] [address] [id number] [address] [place] [address], [place] [address] March, [facility] [address] [id number] [address] [place] [address], [place] [address] March, [facility] [address] [id number] [address] [place] [address], [place] [address] March, [facility] [address] [id number] [address] [place] [address], [place] [address] Jan, [facility] [address] [id number] [address] [place] [address], [place] [address] Jan, [facility] [address] [id number] [address] [place] [address], [place] [address] Jan, [facility] [address] [id number] [address] [place] [address], [place] [address] Jan, [facility] [address] [id number] [address] [place] [address], [place] [address] Jan, [facility] [address] [id number] [address] [place] [address], [place] [address] Dec, [facility] [address] [id number] [address] [place] [address], [place] [address] Dec, [facility] [address] [id number] [address] [place] [address], [place] [address] Nov, [facility] [address] [id number] [address] [place] [address], [place] [address] Nov, [facility] [address] [id number] [address] [place] [address], [place] [address] Nov, [facility] [address] [id number] [address] [place] [address], [place] [address] Nov, [facility] [address] [id number] [address] [place] [address], [place] [address] Oct, [facility] [address] [id number] [address] [place] [address], [place] [address] Oct, [facility] [address] [id number] [address] [place] [address], [place] [address] Sep, [facility] [address] [id number] [address] [place] [address], [place] [address] Sep, [facility] [address] [id number] [address] [place] [address], [place] [address] Sep, [facility] [address] [id number] [address] [place] [address], [place] [address] May, [facility] [address] [id number] [address] [place] [address], [place] [address] Nov, [facility] [address] [id number] [address] [place] [address], [place] [address] Oct, [facility] [address] [id number] [address] [place] [address], [place] [address] Oct, [facility] [address] [id number] [address] [place] [address], [place] [address] Oct, [facility] [address] [id number] [address] [place] [address], [place] [address] 15 Sep, 2010 [facility] [address] [id number] [address] [place] [address], [place] [address] 02 Sep, 2010 [facility] [address] [id number] [address] [place] [address], [place] [address] Aug, [facility] [address] [id number] [address] [place] [address] March, [facility] [address] [id number] [address] [place] [address] Oct, [facility] [address] [id number] [address] [place] [address] Oct, [facility] [address] [id number] [address] [place] [address] Oct, [facility] [address] [id number] [address] [place] [address] Oct, [facility] [address] [id number] [address] [place] [address] Sep, [facility] [address] [id number] [address] [place] [address] Sep, [facility] [address] [id number] [address] [place] [address] Sep, [facility] [address] [id number] [address] [place] [address] Aug, [facility] [address] [id number] [address] [place] [address] Aug, [facility] [address] [id number] [address] [place] [address] Aug, [facility] [address] [id number] [address] [place] [address] Jan, IMMUNIZATIONS No Known Immunizations SOCIAL HISTORY Never Assessed REASON FOR VISIT Weight loss: has lost 20 lbs in the last four months without trying, states has good appetite and eats throughout the day. States is having ongoing dizzy spells , no longer taking hypertension myah natarajan rn, Ongoing issues with insomnia PLAN OF CARE Activity Details Follow Up 4 Weeks Reason:weight loss f ollow up VITAL SIGNS Height 69 in 2017-11-07 Weight 162.5 lbs 2017-11-07 Temperature 97.2 degrees Fahrenheit 2017-11-07 Heart Rate 90 bpm 2017-11-07 Respiratory Rate 22 2017-11-07 BMI 23.99 kg/m2 2017-11-07 Blood pressure systolic 88 mmHg 2017-11-07 Blood pressure diastolic 54 mmHg 2017-11-07 MEDICATIONS Medication Instructions Dosage Frequency Start Date End Date Duration S gato Sancheztec Allergy 10 MG Orally Once a day as directed 24h 12 Dec, 2015 Not-Taking Omeprazole 20 MG TAKE ONE CAPSULE BY MOUTH TWICE DAILY 30 Active Cyclobenzaprine HCl 10 mg Orally Three times a day 1 tablet 8h 12 M 2015 Not-Taking Levemir FlexTouch 100 unit/mL (3 mL) Subcutaneous 2 times a day 120units bid 12h Jan, Active Oxybutynin Chloride 5 mg Orally Twice a day 1 tablet 12h Active Levothyroxine Sodium 50 mcg Orally Once a day 1 tablet 24h 30 days Active Levemir FlexTouch 100 UNIT/ML INJECT 120 UNITS SUBCUTANEOUSLY TWICE DAILY (MUST KEEP APPOINTMENT ON 11/08 FOR REFILLS) 18 Active Effexor XR 75 mg Orally Once a day take 1 capsule (75 m g) by oral route once daily with food 24h Jan, Active NovoLog Flexpen 100 UNIT/ML Subcutaneous 3 times a day wit meals 20 units Jan, Active Welchol 625 MG Orally Once a day 1 tablet 24h Apr, Active Lomotil 2.5-0.025 MG Orally Four times a day 1 tablet as needed 6h 24 Feb, 2017 Not-Taking Tramadol HCl 50 mg Orally 4 times a day TAKE ONE TABLET BY MOUTH EVERY 4 HOURS NEEDED 6h 28 days Active Proventil HFA 108 (90 Base) MCG/ACT Inhalation every 4 hrs 2 puffs as needed 4h May, Active Viberzi 75 MG Orally Twice a day 1 tablet with food 12h 90 days Not-Taking MetFORMIN HCl ER 500 mg Orally twice a day 2 tablets 12h 30 days Active Trilipix 135 MG Orally Once a day 1 capsule 24h March, Not-Taking Dicyclomine HCl 20 mg Orally Once a day 1 tablet 24h Active RESULTS No Results PROCEDURES Procedure Date Ordered Result Body Site GLUCOSE BLOOD TEST Nov 07, 2017 CHEST X-RAY Nov 07, 2017 No Charge Nov 07, 2017 [facility] Nov 07, 2017 VENIPUNCT, ROUTINE* Nov 07, 2017 URINALYSIS, AUTO, W/O SCOPE Nov 07, 2017 INSTRUCTIONS MEDICATIONS ADMINISTERED No Known Medications [...]
--- OUTSIDE RECORDS SUMMARY | 2020-06-13 16:34 | XMS REPORT ---
Author Author Jah GIBBS Organization [facility] Address [address] [place] [address] Care Team Providers Care Data Modeling Specialist Name Role Phone SILVERIO GIBBSNETTE Unavailable PROBLEMS Type Condition ICD9-CM Code [id number] Code Onset Dates Condition S tatus SNOMED Code Problem Overactive bladder N32.81 Active 2 49607865 Problem Gastroesophageal reflux disease without esophagitis K21.9 Active 514949641 Problem Mixed hyperlipidemia E78.2 Active 437629483 Problem Type 2 diabetes mellitus without complications E11 .9 Active 834974617 Problem prison current use of insulin Z79.4 Active 371499376 Problem Irritable bowel syndrome with diarrhea K58.0 Active 669446022 Problem Functional diarrhea K59.1 Active 66525330 Problem Diabetes mellitus E11.9 Active 73 770463 Problem Gastroesophageal reflux disease with esophagitis K 21.0 Active 027178330 Problem Chronic pain G89.29 Active 7422869 1 Problem Insomnia G47.00 Active 689916946 Problem HTN (hypertension) I10 Active 3 1240502 Problem Neuropathy G62.9 Active 815124487 Problem Depression F32.9 Active 02912697 Problem Hypothyroid E03.9 Active 66899545 Problem GERD (gastroesophageal reflux disease) K21.9 Active 026902175 ALLERGIES No Information SOCIAL HISTORY Never Assessed PLAN OF CARE VITAL SIGNS MEDICATIONS Medication Instructions Dosage Frequency Start Date End Date Duration S tatus MetFORMIN HCl ER 500 MG Orally 2 times a day with meals 1 tablet 30 days Active RESULTS No [...]
--- OUTSIDE RECORDS SUMMARY | 2020-06-13 16:34 | XMS REPORT ---
Author Author Jah GIBBS Organization [facility] Address [address] [place] [address] Care Team Providers Care Cargo Trimmer Name Role Phone SILVERIO GIBBSNETTE Unavailable PROBLEMS Type Condition ICD9-CM Code [id number] Code Onset Dates Condition S tatus SNOMED Code Problem Functional diarrhea K59.1 Active 78337148 Problem Gastroesophageal reflux disease with esophagitis K 21.0 Active 607668040 Problem Gastroesophageal reflux disease without esophagitis K21.9 Active 492340747 Problem Essential (primary) hypertension I10 Active 93888770 Problem Type 2 diabetes mellitus with hyperglycemia E11.65 Active 45616412 Problem Diabetes mellitus E11.9 Active 73 375878 Problem Irritable bowel syndrome with diarrhea K58.0 Active 736373180 Problem Type 2 diabetes mellitus without complications E11 .9 Active 280720381 Problem assisted current use of insulin Z79.4 Active 573764925 Problem Insomnia G47.00 Active 910648529 Problem HTN (hypertension) I10 Active 3 6353602 Problem Hypothyroid E03.9 Active 82253525 Problem Chronic pain G89.29 Active 6714696 1 Problem Neuropathy G62.9 Active 959310574 Problem Depression F32.9 Active 40871948 Problem Overactive bladder N32.81 Active 2 95209575 Problem GERD (gastroesophageal reflux disease) K21.9 Active 165255128 Problem Mixed hyperlipidemia E78.2 Active 286990754 ALLERGIES Substance Reaction Event Type Date Status Trilipix nausea Drug Allergy March, Active Niacin rash Drug Allergy March, Active Metformin HCl diarrhea Drug Allergy March, Active Januvia diarrhea Drug Allergy March, Active Gemfibrozil diarrhea Drug Allergy March, Active Actos diarrhea Drug Allergy March, Active SOCIAL HISTORY Never Assessed PLAN OF CARE Activity Details Follow Up 1 Week Reason:hypotension VITAL SIGNS Height 69 in 2017-03-26 Weight 182.7 lbs 2017-03-26 Temperature 98.1 degrees Fahrenheit 2017-03-26 Heart Rate 82 bpm 2017-03-26 Respiratory Rate 18 2017-03-26 BMI 26.98 kg/m2 2017-03-26 Blood pressure systolic 106 mmHg 2017-03-26 Blood pressure diastolic 60 mmHg 2017-03-26 MEDICATIONS Medication Instructions Dosage Frequency Start Date End Date Duration S gato NovoLog Flexpen 100 UNIT/ML Subcutaneous 3 times a day wit meals 20 units Jan, Active Lomotil 2.5-0.025 MG Orally Four times a day 1 tablet as needed 6h Feb, Active Tramadol HCl 50 mg Orally 4 times a day TAKE ONE TABLET BY MOUTH EVERY 4 HOURS NEEDED 6h 28 days Active Dicyclomine HCl 20 MG TAKE ONE TABLET BY MOUTH FOUR TIMES DAILY NEEDED Active Trilipix 135 MG Orally Once a day 1 capsule 24h March, Active MetFORMIN HCl ER 500 MG Orally 2 times a day with meals 1 tablet Active Omeprazole 20 MG TAKE ONE CAPSULE BY MOUTH TWICE DAILY 30 Active Effexor XR 75 MG Orally Once a day take 1 capsule (75 m g) by oral route once daily with food 24h Jan, Active Oxybutynin Chloride 5 mg Orally Twice a day 1 tablet 12h Active Cyclobenzaprine HCl 10 mg Orally Three times a day 1 tablet 8h 12 M 2015 Active Proventil HFA 108 (90 Base) MCG/ACT Inhalation every 4 hrs 2 puffs as needed 4h May, Active Levemir FlexTouch 100 unit/mL (3 mL) Subcutaneous 2 times a day 120units bid 12h Jan, Active Levothyroxine Sodium 125 MCG TAKE ONE TABLET BY MOUTH DAILY Active RESULTS No Results PROCEDURES Procedure Date Ordered Result Body Site EKG, TRACING (IN-HOUSE) 2017-03-26 N/A ELECTROCARDIOGRAM, TRACING March 26, 2017 IMMUNIZATIONS No Known Immunizations MEDICAL (GENERAL) [...]
--- OUTSIDE RECORDS SUMMARY | 2020-06-13 16:34 | XMS REPORT ---
Author Author Jah GIBBS Organization [facility] Address [address] [place] [address] Care Team Providers Care Video Game Animator Name Role Phone GIBBSSILVERIO MOHAMUDNETTE Unavailable PROBLEMS Type Condition ICD9-CM Code RBL23-NM Code Onset Dates Condition S tatus SNOMED Code Problem Overactive bladder N32.81 Active 2 36030722 Problem Gastroesophageal reflux disease without esophagitis K21.9 Active 875715375 Problem Mixed hyperlipidemia E78.2 Active 328008539 Problem Type 2 diabetes mellitus without complications E11 .9 Active 182596023 Problem [facility] current use of insulin Z79.4 Active 714122459 Problem Irritable bowel syndrome with diarrhea K58.0 Active 774550489 Problem Functional diarrhea K59.1 Active 92949253 Problem Diabetes mellitus E11.9 Active 73 986713 Problem Gastroesophageal reflux disease with esophagitis K 21.0 Active 395033026 Problem Chronic pain G89.29 Active 9415165 1 Problem Insomnia G47.00 Active 160815498 Problem HTN (hypertension) I10 Active 3 8283715 Problem Neuropathy G62.9 Active 943925433 Problem Depression F32.9 Active 17721656 Problem Hypothyroid E03.9 Active 06393465 Problem GERD (gastroesophageal reflux disease) K21.9 Active 836592030 ALLERGIES No Information SOCIAL HISTORY Never Assessed PLAN OF CARE VITAL SIGNS MEDICATIONS Medication Instructions Dosage Frequency Start Date End Date Duration S tatus Tramadol HCl 50 mg Orally 4 times a day TAKE ONE TABLET BY MOUTH EVERY 4 HOURS NEEDED 6h Feb, 28 days Active RESULTS No Results [...]
--- OUTSIDE RECORDS SUMMARY | 2020-06-13 16:34 | XMS REPORT ---
Author Author Jah HASSAN Organization [facility] Address [address] [place] [address] Care Team Providers Care Project Eng Name Role Phone REINALDO HASSAN Unavailable PROBLEMS Type Condition ICD9-CM Code JGD51-ND Code Onset Dates Condition S tatus SNOMED Code Problem Overactive bladder N32.81 Active 2 65614765 Problem Gastroesophageal reflux disease with esophagitis K 21.0 Active 296585873 Problem Mixed hyperlipidemia E78.2 Active 879904757 Problem Current non-adherence to medical treatment Z91.19 Active 0404766 Problem Pulmonary emphysema, unspecified emphysema type J4 3.9 Active 27630635 Problem 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.4 Active 582114196 Problem Irritable bowel syndrome with diarrhea K58.0 Active 522615689 Problem Essential (primary) hypertension I10 Active 54577916 Problem Type 2 diabetes mellitus with hyperglycemia E11.65 Active 43318095 Problem Neuropathy G62.9 Active 264823920 Problem Hypothyroid E03.9 Active 32261403 Problem Thrombocytosis D47.3 Active 12721 09 Problem Insomnia G47.00 Active 342160209 Problem Chronic pain G89.29 Active 2075949 1 Problem Depression F32.9 Active 99507013 ALLERGIES No Information ENCOUNTERS Encounter Location Date Diagnosis [place] [id number] [place] [id number] [address] [place] [address] Jan, Type 2 diabetes mellitus wit h [...] and Irritable bowel syndrome with diarrhea K58.0 [facility] [address] [place] [id number] [address] [place] [address] Jan, [place] [address] [id number] [address] [place] [address] Jan, Controlled substance agreeme nt signed Z79.899 [place] [id number] [facility] [id number] [address] [place] [address] 08 Dec, 2017 Type 2 diabetes mellitus [...] treatment Z91.19 and Overweight (BMI 25.0-29.9) E66.3 [place] [address] [facility] [id number] [address] [place] [address] 02 Dec, 2017 Controlled substance agreeme nt signed Z79.899 [place] [address] [facility] [id number] [address] [place] [address] Nov, Type 2 diabetes mellitus wit h hyperglycemia E11.65 and Current non- adherence to medical treatment Z91.19 [place] [address] [facility] [id number] [address] [place] [address] Nov, [place] [address] [facility] [id number] [address] [place] [address] Nov, Chronic pain G89.29 [place] [address] [facility] [id number] [address] [place] [address] Nov, [place] [address] [facility] [id number] [address] [place] [address] Nov, Hypothyroid E03.9 [place] [address] [facility] [id number] [address] [place] [address] Nov, Hypothyroid E03.9 [place] [address] [facility] [id number] [address] [place] [address] Nov, Pulmonary emphysema, unspeci fied emphysema type J43.9 and Irritable bowel syndrome with diarrhea K58.0 [place] [address] [facility] [id number] [address] [place] [address] Oct, [place] [address] [place] [address] Oct, [place] [address] [address] Oct, [place] [address] [address] Oct, [place] [address] [address] Oct, Chronic pain G89.29 [place] [address] [address] Oct, Diabetes mellitus E11.9 ; De pression F32.9 ; Mixed hyperlipidemia E78.2 ; Hypotension, unspecified hypotension type I95.9 ; Pulmonary emphysema, unspecified emphysema type J43.9 and Weight loss, unintentional R63.4 [place] [address] [address] Oct, Chronic pain G89.29 [place] [address] [place] [address] Sep, Chronic pain G89.29 [place] [address] [address] Sep, Hypothyroid E03.9 and Diabet es mellitus E11.9 [place] [address] [place] [id number] [address] [place] [address] Aug, Type 2 diabetes mellitus wit h hyperglycemia E11.65 ; snf current use of insulin Z79.4 ; Essential (primary) hypertension I10 ; Hypothyroid E03.9 ; Neuropathy G62.9 ; Chronic pain G89.29 ; Mixed hy perlipidemia E78.2 and Encounter for immunization Z23 [facility] [address] [facility] [id number] [address] [place] [address] Aug, Chronic pain G89.29 [facility] [address] [facility] [id number] [address] [place] [address] Aug, Overactive bladder N32.81 ; Diabetes mellitus E11.9 and Chronic pain G89.29 [facility] [address] [facility] [id number] [address] [place] [address] Jul, [facility] [address] [facility] [id number] [address] [place] [address] Jun, [facility] [address] [place] [id number] [address] [place] [address] Jun, [facility] [address] [place] [id number] [address] [place] [address] Jun, Hypothyroid E03.9 [facility] [address] [facility] [id number] [address] [place] [address] Jun, Diabetes mellitus E11.9 ; Hy pothyroid E03.9 ; Neuropathy G62.9 ; Chronic pain G89.29 and Neck mass R22.1 [facility] [address] [place] [id number] [address] [place] [address] Apr, [facility] [address] [facility] [id number] [address] [place] [address] Apr, Acute cystitis without hemat uria N30.00 [facility] [address] [facility] [id number] [address] [place] [address] March, [facility] [address] [place] [id number] [address] [place] [address] March, [facility] [address] [place] [id number] [address] [place] [address] March, Near syncope R55 [facility] [address] [place] [id number] [address] [place] [address] Feb, [facility] [address] [facility] [id number] [address] [place] [address] Feb, Chronic pain G89.29 [facility] [address] [facility] [id number] [address] [place] [address] Feb, [facility] [address] [place] [address] Feb, [facility] [address] [place] [id number] [address] [place] [address] Jan, Chronic pain G89.29 [facility] [address] [place] [id number] [address] [place] [address] Jan, [facility] [address] [place] [id number] [address] [place] [address] Jan, [facility] [address] [place] [address] Jan, Diabetes mellitus E11.9 ; Hy pothyroid E03.9 ; GERD (gastroesophageal reflux disease) K21.9 ; Insomnia G47.00 ; Functional diarrhea K59.1 ; Neuropathy G62.9 ; Depression F32.9 ; Chronic pain G89.29 ; Irritable bowel syndrome with diarrhea K58.0 ; Overactive bladder N32.81 ; Mixed hyperlipidemia E78.2 and Bronchitis J40 [facility] [address] [facility] [id number] [address] [place] [address] Dec, [facility] [address] [place] [id number] [address] [place] [address] Dec, [facility] [address] [place] [address] Dec, [facility] [address] [place] [id number] [address] [place] [address] Dec, [facility] [address] [place] [address] Dec, Chronic pain G89.29 [place] [address] [place] [id number] [address] [place] [address] Dec, [place] [address] [address] Dec, [place] [address] [address] Dec, Type 2 diabetes mellitus wit h foot ulcer E11.621 [place] [address] [place] [id number] [address] [place] [address] Dec, Type 2 diabetes mellitus wit h foot ulcer E11.621 [place] [address] [address] Dec, HTN (hypertension) I10 ; Dep ression F32.9 ; Type 2 diabetes mellitus with foot ulcer E11.621 ; Functional diarrhea K59.1 ; Irritable bowel syndrome with diarrhea K58.0 ; Chronic pain G89.29 ; Insomnia G47.00 ; Overactive bladder N32.81 ; Mixed hyperlipidemia E78.2 ; Gastroesophageal reflux disease with esophagitis K21.0 and Acquired hypothyroidism E03.9 [place] [address] [place] [id number] [address] [place] [address] Nov, [place] [address] [address] Oct, [place] [address] [address] Oct, [place] [address] [address] Oct, [place] [address] [address] Sep, Functional diarrhea K59.1 ; HTN (hypertension) I10 ; Diabetes mellitus E11.9 ; Depression F32.9 ; Overactive bladder N32.81 ; Mixed hyperlipidemia E78.2 ; Gastroesophageal reflux disease without esophagitis K21.9 ; Chronic pain G89.29 ; Insomnia G47.00 and Acquired hypothyroidism E03.9 [place] [address] [address] 04 Sep, 2016 [place] [address] [address] 11 Aug, 2016 Encounter for immunization Z 23 [place] [address] [address] 06 Aug, 2016 [place] [address] [address] Jul, [place] [address] [address] Jun, Type 2 diabetes mellitus wit hout complications E11.9 ; HTN (hypertension) I10 ; Hypothyroid E03.9 ; Neuropathy G62.9 ; Depression F32.9 ; Chronic pain G89.29 ; GERD (gastroesophageal reflux disease) K21.9 ; Insomnia G47.00 ; Overactive bladder N32.81 ; Mixed hyperlipidemia E78.2 ; Diarrhea of infectious origin A09 and Environmental allergies Z91.09 [place] [address] [address] Apr, [place] [address] [address] March, Hypothyroidism, unspecified E03.9 and Mixed hyperlipidemia E78.2 [place] [address] [address] March, Diabetes mellitus E11.9 ; HT N (hypertension) I10 ; Hypothyroid E03.9 ; Depression F32.9 ; Overactive bladder N32.81 ; Other chronic pain G89.29 ; Lumbago with sciatica, unspecified side M54.40 ; Environmental allergies Z91.09 and Gastroesophageal reflux disease, esophagitis presence not specified K21.9 [place] [address] [address] March, [place] [address] [address] Jan, HTN (hypertension) I10 ; Hyp othyroid E03.9 ; Neuropathy G62.9 ; Diabetes mellitus E11.9 ; Chronic pain G89.29 ; GERD (gastroesophageal reflux disease) K21.9 ; Overactive bladder N32.81 and Depression F32.9 [place] [address] [address] 12 Dec, 2015 Ear pain, left H92.02 ; HTN (hypertension) I10 ; Hypothyroid E03.9 ; Neuropathy G62.9 ; Diabetes mellitus E11.9 ; Depression F32.9 ; GERD (gastroesophageal reflux disease) K21.9 ; Insomnia G47.00 and Overactive bladder N32.81 [place] [address] [address] Nov, Overactive bladder N32.81 an d Chronic pain G89.29 [place] [address] [address] Nov, Kidney failure N19 [place] [address] [address] Nov, [place] [address] [address] Nov, [place] [address] [address] Nov, Diabetes mellitus E11.9 ; De pression F32.9 ; Chronic pain G89.29 ; GERD (gastroesophageal reflux disease) K21.9 ; Insomnia G47.00 ; HTN (hypertension) I10 ; Hypothyroid E03.9 ; COPD (chronic obstructive pulmonary disease) J44.9 ; Bladder incontinence R32 and Incontinence R32 [place] [address] [place] [id number] [address] [place] [address] Sep, Type 2 diabetes mellitus wit h foot ulcer E11.621 and Chromosomal abnormality, 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 [place] [address] [address] Sep, [place] [address] [address] Aug, [place] [address] [address] Aug, [place] [address] [address] Aug, HTN (hypertension) I10 ; Enc ounter for immunization Z23 ; Hypothyroid E03.9 ; Neuropathy G62.9 ; Diabetes mellitus E11.9 ; Depression F32.9 ; Chronic pain G89.29 ; GERD (gastroesophageal reflux disease) K21.9 ; Insomnia G47.00 and COPD (chronic obstructive pulmonary disease) J44.[address] [address] Jun, [address] [address] Jun, [place] [address] [address] May, Essential hypertension, ivis gn 401.1 ; Unspecified hypothyroidism 244.9 ; Insomnia, unspecified 780.52 ; Shortness of breath 786.05 ; Depression 311 ; COPD (chronic obstructive pulmonary disease) 496 ; GERD (gastroesophageal reflux disease) 530.81 and Diabetes 1.5, 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 [place] [address] [address] May, [address] [address] May, [address] [address] May, Shortness of breath 786.05 ; Essential hypertension, benign 401.1 ; Diabetes mellitus 250.00 ; Hyperlipidemia 272.4 ; Hypothyroid 244.9 ; Insomnia 780.52 and Cough 786.2 [facility] [address] [id number] [address] [place] [address] Apr, [facility] [address] [id number] [address] [place] [address] March, Shortness of breath 786.05 ; Nausea with vomiting 787.01 ; Essential hypertension, benign 401.1 ; Diabetes mellitus 250.00 ; Hyperlipidemia 272.4 and Hypothyroid 244.9 [facility] [address] [id number] [address] [place] [address] Feb, [facility] [address] [id number] [address] [place] [address] Feb, [facility] [address] [facility] [id number] [address] [place] [address] Jan, [facility] [address] [id number] [address] [place] [address] Jan, [facility] [address] [id number] [address] [place] [address] Jan, [facility] [address] [id number] [address] [place] [address] Jan, [facility] [address] [facility] [id number] [address] [place] [address] Jan, [facility] [address] [id number] [address] [place] [address] Jan, [facility] [address] [id number] [address] [place] [address] Jan, [facility] [address] [id number] [address] [place] [address] Jan, [facility] [address] [facility] [id number] [address] [place] [address] Jan, [facility] [address] [facility] [id number] [address] [place] [address] Jan, [facility] [address] [id number] [address] [place] [address], [place] [address] Dec, 2014 [facility] [address] [id number] [address] [place] [address], [place] [address] Dec, 2014 [facility] [address] [id number] [address] [place] [address], [place] [address] Dec, 2014 [facility] [address] [id number] [address] [place] [address], [place] [address] Dec, 2014 [facility] [address] [id number] [address] [place] [address], [place] [address] Dec, 2014 [facility] [address] [id number] [address] [place] [address], [place] [address] Dec, 2014 [facility] [address] [id number] [address] [place] [address], [place] [address] Dec, 2014 [facility] [address] [id number] [address] [place] [address], [place] [address] Dec, 2014 [facility] [address] [id number] [address] [place] [address], [place] [address] Dec, 2014 [facility] [address] [id number] [address] [place] [address], [place] [address] Dec, 2014 [facility] [address] [id number] [address] [place] [address], [place] [address] Oct, [facility] [address] [id number] [address] [place] [address], [place] [address] Oct, [facility] [address] [id number] [address] [place] [address], [place] [address] Oct, [facility] [address] [id number] [address] [place] [address], [place] [address] Oct, [facility] [address] [id number] [address] [place] [address], [place] [address] Oct, [facility] [address] [id number] [address] [place] [address], [place] [address] Oct, [facility] [address] [id number] [address] [place] [address], [place] [address] Oct, [facility] [address] [id number] [address] [place] [address], [place] [address] 05 Oct, 2014 [facility] [address] [id number] [address] [place] [address], [place] [address] Oct, [facility] [address] [id number] [address] [place] [address], [place] [address] Oct, [facility] [address] [id number] [address] [place] [address], [place] [address] Oct, [facility] [address] [id number] [address] [place] [address], [place] [address] Oct, [facility] [address] [id number] [address] [place] [address], [place] [address] Oct, [facility] [address] [id number] [address] [place] [address], [place] [address] Oct, [facility] [address] [id number] [address] [place] [address], [place] [address] Sep, [facility] [address] [id number] [address] [place] [address], [place] [address] Sep, [facility] [address] [id number] [address] [place] [address], [place] [address] Sep, [facility] [address] [id number] [address] [place] [address], [place] [address] Sep, [facility] [address] [id number] [address] [place] [address], [place] [address] Sep, [facility] [address] [id number] [address] [place] [address], [place] [address] Sep, [facility] [address] [id number] [address] [place] [address], [place] [address] Sep, [facility] [address] [id number] [address] [place] [address], [place] [address] Sep, [facility] [address] [id number] [address] [place] [address], [place] [address] Sep, [facility] [address] [id number] [address] [place] [address], [place] [address] Aug, [facility] [address] [id number] [address] [place] [address], [place] [address] Aug, [facility] [address] [id number] [address] [place] [address], [place] [address] Aug, [facility] [address] [id number] [address] [place] [address], [place] [address] Aug, [facility] [address] [id number] [address] [place] [address], [place] [address] 16 Aug, 2014 [facility] [address] [id number] [address] [place] [address], [place] [address] Aug, [facility] [address] [id number] [address] [place] [address], [place] [address] Aug, [facility] [address] [id number] [address] [place] [address], [place] [address] Aug, [facility] [address] [id number] [address] [place] [address], [place] [address] Aug, [facility] [address] [id number] [address] [place] [address], [place] [address] 29 Jul, 2013 [facility] [address] [id number] [address] [place] [address], [place] [address] 29 Jul, 2013 [facility] [address] [id number] [address] [place] [address], [place] [address] 25 Jul, 2014 [facility] [address] [id number] [address] [place] [address], [place] [address] Jul, 2013 [facility] [address] [id number] [address] [place] [address], [place] [address] Jul, [facility] [address] [id number] [address] [place] [address] Jul, [facility] [address] [id number] [address] [place] [address], [place] [address] Jul, [facility] [address] [id number] [address] [place] [address], [place] [address] Jul, [facility] [address] [id number] [address] [place] [address], [place] [address] Jul, [facility] [address] [id number] [address] [place] [address], [place] [address] Jul, [facility] [address] [id number] [address] [place] [address], [place] [address] Jun, [facility] [address] [id number] [address] [place] [address], [place] [address] Jun, [facility] [address] [id number] [address] [place] [address], [place] [address] Jun, [facility] [address] [id number] [address] [place] [address], [place] [address] Jun, [facility] [address] [id number] [address] [place] [address], [place] [address] Jun, [facility] [address] [id number] [address] [place] [address], [place] [address] Jun, [facility] [address] [id number] [address] [place] [address], [place] [address] Jun, [facility] [address] [id number] [address] [place] [address], [place] [address] Jun, [facility] [address] [id number] [address] [place] [address], [place] [address] Jun, [facility] [address] [id number] [address] [place] [address], [place] [address] Jun, [facility] [address] [id number] [address] [place] [address], [place] [address] Jun, [facility] [address] [id number] [address] [place] [address], [place] [address] Jun, [facility] [address] [id number] [address] [place] [address], [place] [address] May, [facility] [address] [id number] [address] [place] [address], [place] [address] May, [facility] [address] [id number] [address] [place] [address], [place] [address] May, [facility] [address] [id number] [address] [place] [address], [place] [address] May, [facility] [address] [id number] [address] [place] [address], [place] [address] May, [facility] [address] [id number] [address] [place] [address], [place] [address] May, [facility] [address] [id number] [address] [place] [address], [place] [address] March, [facility] [address] [id number] [address] [place] [address], [place] [address] March, [facility] [address] [id number] [address] [place] [address], [place] [address] March, [facility] [address] [id number] [address] [place] [address], [place] [address] March, [facility] [address] [id number] [address] [place] [address], [place] [address] March, [facility] [address] [id number] [address] [place] [address], [place] [address] March, [facility] [address] [id number] [address] [place] [address], [place] [address] Feb, [facility] [address] [id number] [address] [place] [address], [place] [address] Feb, [facility] [address] [id number] [address] [place] [address] Feb, [facility] [address] [address] [id number] [address] [place] [address] Feb, [facility] [address] [id number] [facility] [place] [place] [address] Jan, [facility] [address] [id number] [facility] [place] [place] [address] Jan, [facility] [address] [id number] [facility] [place] [place] [address] Jan, [facility] [address] [id number] [address] [place] [address], [place] [address] Jan, [facility] [address] [id number] [address] [place] [address], [place] [address] Jan, [facility] [address] [id number] [address] [place] [address], [place] [address] Jan, [facility] [address] [id number] [address] [place] [address], [place] [address] Jan, [facility] [address] [id number] [address] [place] [address], [place] [address] Jan, [facility] [address] [id number] [address] [place] [address], [place] [address] Jan, [facility] [address] [id number] [address] [place] [address], [place] [address] Jan, [facility] [address] [id number] [address] [place] [address], [place] [address] Jan, [facility] [address] [id number] [address] [place] [address], [place] [address] Jan, [facility] [address] [id number] [address] [place] [address], [place] [address] Dec, [facility] [address] [id number] [address] [place] [address], [place] [address] Dec, [facility] [address] [id number] [address] [place] [address], [place] [address] Dec, [facility] [address] [id number] [address] [place] [address], [place] [address] Dec, [facility] [address] [id number] [address] [place] [address], [place] [address] Dec, [facility] [address] [id number] [address] [place] [address], [place] [address] Dec, [facility] [address] [id number] [address] [place] [address], [place] [address] Nov, [facility] [address] [id number] [address] [place] [address], [place] [address] Nov, [facility] [address] [id number] [address] [place] [address], [place] [address] Oct, [facility] [address] [id number] [address] [place] [address], [place] [address] Oct, [facility] [address] [id number] [address] [place] [address], [place] [address] Oct, [facility] [address] [id number] [address] [place] [address], [place] [address] Oct, [facility] [address] [id number] [address] [place] [address], [place] [address] Oct, [facility] [address] [id number] [address] [place] [address], [place] [address] Oct, [facility] [address] [id number] [address] [place] [address], [place] [address] Sep, [facility] [address] [id number] [address] [place] [address], [place] [address] Sep, [facility] [address] [id number] [address] [place] [address], [place] [address] Sep, [facility] [address] [id number] [address] [place] [address], [place] [address] Sep, [facility] [address] [id number] [address] [place] [address], [place] [address] Aug, [facility] [address] [id number] [address] [place] [address], [place] [address] Aug, [facility] [address] [id number] [address] [place] [address], [place] [address] Aug, [facility] [address] [id number] [address] [place] [address], [place] [address] Jul, [facility] [address] [id number] [address] [place] [address], [place] [address] Jul, [facility] [address] [id number] [address] [place] [address], [place] [address] Jul, [facility] [address] [id number] [address] [place] [address], [place] [address] Jun, [facility] [address] [id number] [address] [place] [address], [place] [address] Jun, [facility] [address] [id number] [address] [place] [address], [place] [address] Jun, [facility] [address] [id number] [address] [place] [address], [place] [address] Apr, [facility] [address] [id number] [address] [place] [address], [place] [address] Apr, [facility] [address] [id number] [address] [place] [address], [place] [address] March, [facility] [address] [id number] [address] [place] [address], [place] [address] March, [facility] [address] [id number] [address] [place] [address], [place] [address] March, [facility] [address] [id number] [address] [place] [address], [place] [address] March, [facility] [address] [id number] [address] [place] [address], [place] [address] Feb, [facility] [address] [id number] [address] [place] [address], [place] [address] Jan, [facility] [address] [id number] [address] [place] [address], [place] [address] 13 Dec, 2012 [facility] [address] [id number] [address] [place] [address], [place] [address] 08 Dec, 2012 [facility] [address] [id number] [address] [place] [address], [place] [address] Dec, [facility] [address] [id number] [address] [place] [address], [place] [address] Nov, [facility] [address] [id number] [address] [place] [address], [place] [address] Oct, [facility] [address] [id number] [address] [place] [address], [place] [address] Oct, [facility] [address] [id number] [address] [place] [address], [place] [address] Sep, [facility] [address] [id number] [address] [place] [address], [place] [address] Sep, [facility] [address] [id number] [address] [place] [address], [place] [address] Sep, [facility] [address] [id number] [address] [place] [address], [place] [address] Sep, [facility] [address] [id number] [address] [place] [address], [place] [address] Sep, [facility] [address] [id number] [address] [place] [address], [place] [address] Sep, [facility] [address] [id number] [address] [place] [address], [place] [address] Sep, [facility] [address] [id number] [address] [place] [address], [place] [address] 16 Aug, 2012 [facility] [address] [id number] [address] [place] [address], [place] [address] 16 Aug, 2012 [facility] [address] [id number] [address] [place] [address], [place] [address] 10 Aug, 2012 [facility] [address] [id number] [address] [place] [address], [place] [address] 10 Aug, 2012 [facility] [address] [id number] [address] [place] [address], [place] [address] 08 Aug, 2012 [facility] [address] [id number] [address] [place] [address], [place] [address] 08 Aug, 2012 [facility] [address] [id number] [address] [place] [address], [place] [address] 07 Aug, 2012 [facility] [address] [id number] [address] [place] [address], [place] [address] 05 Aug, 2012 [facility] [address] [id number] [address] [place] [address], [place] [address] Jul, [facility] [address] [id number] [address] [place] [address], [place] [address] Jul, [facility] [address] [id number] [address] [place] [address], [place] [address] Jun, [facility] [address] [id number] [address] [place] [address], [place] [address] May, [facility] [address] [id number] [address] [place] [address], [place] [address] Apr, [facility] [address] [id number] [address] [place] [address], [place] [address] Apr, [facility] [address] [id number] [address] [place] [address], [place] [address] Apr, [facility] [address] [id number] [address] [place] [address], [place] [address] March, [facility] [address] [id number] [address] [place] [address], [place] [address] March, [facility] [address] [id number] [address] [place] [address], [place] [address] March, [facility] [address] [id number] [address] [place] [address], [place] [address] March, [facility] [address] [id number] [address] [place] [address], [place] [address] March, [facility] [address] [id number] [address] [place] [address], [place] [address] March, [facility] [address] [id number] [address] [place] [address], [place] [address] March, [facility] [address] [id number] [address] [place] [address], [place] [address] Jan, [facility] [address] [id number] [address] [place] [address], [place] [address] Jan, [facility] [address] [id number] [address] [place] [address], [place] [address] Jan, [facility] [address] [id number] [address] [place] [address], [place] [address] Jan, [facility] [address] [id number] [address] [place] [address], [place] [address] Jan, [facility] [address] [id number] [address] [place] [address], [place] [address] Dec, [facility] [address] [id number] [address] [place] [address], [place] [address] Dec, [facility] [address] [id number] [address] [place] [address], [place] [address] Nov, [facility] [address] [id number] [address] [place] [address], [place] [address] Nov, [facility] [address] [id number] [address] [place] [address], [place] [address] 06 Nov, 2011 [facility] [address] [id number] [address] [place] [address], [place] [address] Nov, [facility] [address] [id number] [address] [place] [address], [place] [address] Oct, [facility] [address] [id number] [address] [place] [address], [place] [address] Oct, [facility] [address] [id number] [address] [place] [address], [place] [address] 14 Sep, 2011 [facility] [address] [id number] [address] [place] [address], [place] [address] Sep, [facility] [address] [id number] [address] [place] [address], [place] [address] Sep, [facility] [address] [id number] [address] [place] [address], [place] [address] May, [facility] [address] [id number] [address] [place] [address], [place] [address] Nov, [facility] [address] [id number] [address] [place] [address], [place] [address] Oct, [facility] [address] [id number] [address] [place] [address], [place] [address] Oct, [facility] [address] [id number] [address] [place] [address], [place] [address] Oct, [facility] [address] [id number] [address] [place] [address], [place] [address] 15 Sep, 2010 [facility] [address] [id number] [address] [place] [address], [place] [address] Sep, [facility] [address] [id number] [address] [place] [address], [place] [address] Aug, [facility] [address] [id number] [address] [place] [address], [place] [address] March, [facility] [address] [id number] [address] [place] [address] Oct, [facility] [address] [id number] [address] [place] [address] Oct, [facility] [address] [id number] [address] [place] [address] Oct, [facility] [address] [id number] [address] [place] [address] Oct, [facility] [address] [id number] [address] [place] [address] Sep, [facility] [address] [id number] [address] [place] [address] Sep, [facility] [address] [id number] [address] [place] [address] Sep, [facility] [address] [id number] [address] [place] [address] Aug, [facility] [address] [id number] [address] [place] [address] Aug, [facility] [address] [id number] [address] [place] [address] Aug, [facility] [address] [id number] [address] [place] [address] Jan, IMMUNIZATIONS No Known Immunizations SOCIAL HISTORY Never Assessed REASON FOR VISIT Increase in Synthroid PLAN OF CARE VITAL SIGNS MEDICATIONS Medication Instructions Dosage Frequency Start Date End Date Duration S tatus Levothyroxine Sodium 150 MCG Orally Once a day 1 tablet 24h Active RESULTS No Results PROCEDURES No Known [...]
--- OUTSIDE RECORDS SUMMARY | 2020-06-13 16:34 | XMS REPORT ---
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 Name Role Phone BERNIE CHLOE Unavailable PROBLEMS Type Condition ICD9-CM Code AVA32-RV Code Onset Dates Condition S tatus SNOMED Code Problem Overactive bladder N32.81 Active 2 66400899 Problem Gastroesophageal reflux disease without esophagitis K21.9 Active 538159803 Problem Mixed hyperlipidemia E78.2 Active 505946146 Problem Type 2 diabetes mellitus without complications E11 .9 Active 004218584 Problem custodial current use of insulin Z79.4 Active 732891636 Problem Gastroesophageal reflux disease with esophagitis K 21.0 Active 319955791 Problem Functional diarrhea K59.1 Active 59054003 Problem Diabetes mellitus E11.9 Active 73 587713 Problem Irritable bowel syndrome with diarrhea K58.0 Active 286375222 Problem Insomnia G47.00 Active 990447827 Problem Depression F32.9 Active 78899293 Problem Neuropathy G62.9 Active 044110010 Problem GERD (gastroesophageal reflux disease) K21.9 Active 882694469 Problem Hypothyroid E03.9 Active 76900052 Problem Chronic pain G89.29 Active 8814129 1 Problem HTN (hypertension) I10 Active 3 6677923 ALLERGIES Unknown Allergies SOCIAL HISTORY No smoking Hx information available PLAN OF CARE VITAL SIGNS MEDICATIONS Medication Instructions Dosage Frequency Start Date End Date Duration S tatus Tramadol HCl 50 mg Orally every 6 hrs 1 tablet as needed 6h 30 Oct, 2016 Active RESULTS No Results PROCEDURES No Known procedures IMMUNIZATIONS No Known Immunizations
--- OUTSIDE RECORDS SUMMARY | 2020-06-13 16:35 | XMS REPORT ---
Author Author Jah PARKER Organization [facility] Address [address] [place] [address] Care Team Providers Care Telegraph Editor Name Role Phone PARKERSHAYLEE MckeonELE Unavailable PROBLEMS Type Condition ICD9-CM Code AUD40-RH Code Onset Dates Condition S tatus SNOMED Code Problem Gastroesophageal reflux disease with esophagitis K 21.0 Active 869459023 Problem retirement current use of insulin Z79.4 Active 236840109 Problem Irritable bowel syndrome with diarrhea K58.0 Active 843665907 Problem Diabetes mellitus E11.9 Active 73 564541 Problem Recurrent major depressive disorder, in partial remission F33.41 Active 38243146 Problem Essential (primary) hypertension I10 Active 10000774 Problem Type 2 diabetes mellitus with hyperglycemia E11.65 Active 86248479 Problem Current non-adherence to medical treatment Z91.19 Active 4316349 Problem Pulmonary emphysema, unspecified emphysema type J4 3.9 Active 98270198 Problem Neuropathy G62.9 Active 295079738 Problem Hypothyroid E03.9 Active 11109069 Problem Thrombocytosis D47.3 Active 16176 09 Problem Overactive bladder N32.81 Active 2 34071759 Problem Chronic pain G89.29 Active 8424327 1 Problem Mixed hyperlipidemia E78.2 Active [id number] ALLERGIES No Information ENCOUNTERS Encounter Location Date Diagnosis [facility] [address] [facility] [id number] [address] [place] [phone] March, [facility] [address] [facility] [id number] [address] [place] [id number] March, Hypothyroid E03.9 [facility] [address] [facility] [id number] [address] [place] [phone] March, Diabetes mellitus E11.9 and Hypothyroid E03.9 [facility] [address] [facility] [id number] [address] [place] [phone] March, Diabetes mellitus E11.9 [place] [address] [place] [id number] [address] [place] [phone] March, Hypothyroid E03.9 and Elevat ed liver enzymes R74.8 [place] [address] [place] [id number] [address] [place] [id number] March, Type 2 diabetes mellitus wit h hyperglycemia E11.65 ; 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 ; Pulmonary emphysema, unspecified emphysema type J43.9 ; Hypothyroid E03.9 ; Neuropathy G62.9 ; Mixed hyperlipidemia E78.2 ; Chronic pain G89.29 ; Gastroesophageal reflux disease with esophagitis K21.0 ; Irritable bowel syndrome with diarrhea K58.0 ; Overactive bladder N32.81 and Recurrent major depressive disorder, in partial remission F33.41 [place] [address] [place] [id number] [address] [place] [phone] Feb, Chronic pain G89.29 [place] [address] [address] Feb, Type 2 diabetes mellitus wit h hyperglycemia E11.65 and Skin lesion of scalp L98.9 [place] [id number] [address] [place] [phone] Feb, [place] [address] [place] [id number] [address] [place] [id number] Jan, Type 2 diabetes mellitus wit h hyperglycemia E11.65 ; 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 ; Essential (primary) hypertension I10 ; Pulmonary emphysema, unspecified emphysema type J43.9 ; Chronic pain G89.29 ; Controlled substance agreement signed Z79.899 ; Hypothyroid E03.9 ; Neuropathy G62.9 ; Gastroesophageal reflux disease with esophagitis K21.0 ; Overactive bladder N32.81 ; Depression F32.9 and Irritable bowel syndrome with diarrhea K58.0 [place] [address] [place] [id number] [address] [place] [phone] Jan, [place] [address] [place] [id number] [address] [place] [phone] Jan, Controlled substance agreeme nt signed Z79.899 [place] [address] [facility] [id number] [address] [place] [phone] 08 Dec, 2017 Type 2 diabetes mellitus wit h hyperglycemia E11.65 ; Controlled substance agreement signed Z79.899 ; 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 ; Essential (primary) hypertension I10 ; Hypothyroid E03.9 ; Neuropathy G62.9 ; Depression F32.9 ; Mixed hyperlipidemia E78.2 ; Irritable bowel syndrome with diarrhea K58.0 ; Gastroesophageal reflux disease with esophagitis K21.0 ; Thrombocytosis D47.3 ; Current non-adherence to medical treatment Z91.19 and Overweight (BMI 25.0-29.9) E66.3 [place] [address] [place] [id number] [address] [place] [phone] 02 Dec, 2017 Controlled substance agreeme nt signed Z79.899 [place] [address] [facility] [id number] [address] [place] [phone] Nov, Type 2 diabetes mellitus wit h hyperglycemia E11.65 and Current non- adherence to medical treatment Z91.19 [place] [address] [place] [id number] [address] [place] [phone] Nov, [place] [address] [place] [id number] [address] [place] [phone] Nov, Chronic pain G89.29 [place] [address] [facility] [id number] [address] [place] [phone] Nov, [place] [address] [facility] [id number] [address] [place] [phone] Nov, Hypothyroid E03.9 [place] [address] [facility] [id number] [address] [place] [phone] Nov, Hypothyroid E03.9 [place] [address] [facility] [id number] [address] [place] [phone] Nov, Pulmonary emphysema, unspeci fied emphysema type J43.9 and Irritable bowel syndrome with diarrhea K58.0 [place] [address] [facility] [id number] [address] [place] [phone] Oct, [place] [address] [facility] [id number] [address] [place] [phone] Oct, [place] [address] [facility] [id number] [address] [place] [phone] Oct, [place] [address] [facility] [id number] [address] [place] [phone] Oct, [place] [address] [facility] [id number] [address] [place] [phone] Oct, Chronic pain G89.29 [place] [address] [place] [id number] [address] [place] [phone] Oct, Diabetes mellitus E11.9 ; De pression F32.9 ; Mixed hyperlipidemia E78.2 ; Hypotension, unspecified hypotension type I95.9 ; Pulmonary emphysema, unspecified emphysema type J43.9 and Weight loss, unintentional R63.4 [place] [address] [place] [id number] [address] [place] [id number] Oct, Chronic pain G89.29 [place] [address] [place] [id number] [address] [place] [phone] Sep, Chronic pain G89.29 [place] [address] [place] [id number] [address] [place] [phone] Sep, Hypothyroid E03.9 and Diabet es mellitus E11.9 [place] [address] [facility] [id number] [address] [place] [phone] Aug, Type 2 diabetes mellitus wit h hyperglycemia E11.65 ; 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 ; Essential (primary) hypertension I10 ; Hypothyroid E03.9 ; Neuropathy G62.9 ; Chronic pain G89.29 ; Mixed hy perlipidemia E78.2 and Encounter for immunization Z23 [place] [address] [facility] [id number] [address] [place] [id number] Aug, Chronic pain G89.29 [facility] [address] [facility] [id number] [address] [place] [id number] Aug, Overactive bladder N32.81 ; Diabetes mellitus E11.9 and Chronic pain G89.29 [facility] [address] [facility] [id number] [address] [place] [phone] Jul, [facility] [address] [facility] [id number] [address] [place] [phone] Jun, [facility] [address] [place] [id number] [address] [place] [phone] Jun, [facility] [address] [place] [id number] [place] [phone] Jun, Hypothyroid E03.9 [facility] [address] [place] [id number] [place] [phone] Jun, Diabetes mellitus E11.9 ; Hy pothyroid E03.9 ; Neuropathy G62.9 ; Chronic pain G89.29 and Neck mass R22.1 [facility] [address] [place] [id number] [address] [place] [phone] Apr, [facility] [address] [place] [id number] [address] [place] [id number] Apr, Acute cystitis without hemat uria N30.00 [facility] [address] [facility] [id number] [address] [place] [phone] March, [facility] [address] [place] [id number] [address] [place] [phone] March, [facility] [address] [place] [id number] [address] [place] [phone] March, Near syncope R55 [facility] [address] [place] [id number] [address] [place] [phone] Feb, [facility] [address] [place] [id number] [address] [place] [phone] Feb, Chronic pain G89.29 [facility] [address] [facility] [id number] [address] [place] [phone] Feb, [facility] [address] [facility] [id number] [address] [place] [phone] Feb, [facility] [address] [facility] [id number] [address] [place] [phone] Jan, Chronic pain G89.29 [facility] [address] [facility] [id number] [address] [place] [phone] Jan, [facility] [address] [id number] Jan, [facility] [address] [facility] [id number] [address] [place] [phone] Jan, Diabetes mellitus E11.9 ; Hy pothyroid E03.9 ; GERD (gastroesophageal reflux disease) K21.9 ; Insomnia G47.00 ; Functional diarrhea K59.1 ; Neuropathy G62.9 ; Depression F32.9 ; Chronic pain G89.29 ; Irritable bowel syndrome with diarrhea K58.0 ; Overactive bladder N32.81 ; Mixed hyperlipidemia E78.2 and Bronchitis J40 [facility] [address] [facility] [id number] [address] [place] [phone] Dec, [facility] [address] [facility] [id number] [address] [place] [phone] Dec, [facility] [address] [facility] [id number] [address] [place] [phone] Dec, [facility] [address] [facility] [id number] [address] [place] [phone] Dec, [facility] [address] [facility] [id number] [address] [place] [id number] Dec, Chronic pain G89.29 [facility] [address] [facility] [id number] [address] [place] [id number] Dec, [facility] [address] [place] [id number] [address] [place] [phone] Dec, [facility] [address] [place] [id number] [place] [phone] Dec, Type 2 diabetes mellitus wit h foot ulcer E11.621 [facility] [address] [place] [id number] [address] [place] [id number] 17 Dec, 2016 Type 2 diabetes mellitus wit h foot ulcer E11.621 [facility] [address] [place] [id number] [address] [place] [id number] Dec, HTN (hypertension) I10 ; Dep ression F32.9 ; Type 2 diabetes mellitus with foot ulcer E11.621 ; Functional diarrhea K59.1 ; Irritable bowel syndrome with diarrhea K58.0 ; Chronic pain G89.29 ; Insomnia G47.00 ; Overactive bladder N32.81 ; Mixed hyperlipidemia E78.2 ; Gastroesophageal reflux disease with esophagitis K21.0 and Acquired hypothyroidism E03.9 [place] [address] [address] Nov, [place] [address] [address] Oct, [place] [address] [address] Oct, [place] [address] [place] [id number] [address] [place] [phone] Oct, [place] [address] [place] [id number] [address] [place] [address] Sep, Functional diarrhea K59.1 ; HTN (hypertension) I10 ; Diabetes mellitus E11.9 ; Depression F32.9 ; Overactive bladder N32.81 ; Mixed hyperlipidemia E78.2 ; Gastroesophageal reflux disease without esophagitis K21.9 ; Chronic pain G89.29 ; Insomnia G47.00 and Acquired hypothyroidism E03.9 [place] [address] [address] 04 Sep, 2016 [place] [address] [address] 11 Aug, 2016 Encounter for immunization Z 23 [place] [address] [address] 06 Aug, 2016 [place] [address] [address] 09 Jul, 2016 [place] [address] [address] Jun, Type 2 diabetes mellitus wit hout complications E11.9 ; HTN (hypertension) I10 ; Hypothyroid E03.9 ; Neuropathy G62.9 ; Depression F32.9 ; Chronic pain G89.29 ; GERD (gastroesophageal reflux disease) K21.9 ; Insomnia G47.00 ; Overactive bladder N32.81 ; Mixed hyperlipidemia E78.2 ; Diarrhea of infectious origin A09 and Environmental allergies Z91.09 [place] [address] [address] Apr, [place] [address] [address] March, Hypothyroidism, unspecified E03.9 and Mixed hyperlipidemia E78.2 [place] [address] [address] March, Diabetes mellitus E11.9 ; HT N (hypertension) I10 ; Hypothyroid E03.9 ; Depression F32.9 ; Overactive bladder N32.81 ; Other chronic pain G89.29 ; Lumbago with sciatica, unspecified side M54.40 ; Environmental allergies Z91.09 and Gastroesophageal reflux disease, esophagitis presence not specified K21.9 [place] [address] [address] March, [place] [address] [address] Jan, HTN (hypertension) I10 ; Hyp othyroid E03.9 ; Neuropathy G62.9 ; Diabetes mellitus E11.9 ; Chronic pain G89.29 ; GERD (gastroesophageal reflux disease) K21.9 ; Overactive bladder N32.81 and Depression F32.9 [facility] [address] [facility] [id number] [address] [place] [id number] 12 Dec, 2015 Ear pain, left H92.02 ; HTN (hypertension) I10 ; Hypothyroid E03.9 ; Neuropathy G62.9 ; Diabetes mellitus E11.9 ; Depression F32.9 ; GERD (gastroesophageal reflux disease) K21.9 ; Insomnia G47.00 and Overactive bladder N32.81 [place] [address] [place] [address] Nov, Overactive bladder N32.81 an d Chronic pain G89.29 [place] [address] [place] [id number] [address] [place] [address] Nov, Kidney failure N19 [place] [address] [place] [id number] [address] [place] [phone] Nov, [place] [address] [place] [address] Nov, [place] [address] [place] [id number] [address] [place] [id number] Nov, Diabetes mellitus E11.9 ; De pression F32.9 ; Chronic pain G89.29 ; GERD (gastroesophageal reflux disease) K21.9 ; Insomnia G47.00 ; HTN (hypertension) I10 ; Hypothyroid E03.9 ; COPD (chronic obstructive pulmonary disease) J44.9 ; Bladder incontinence R32 and Incontinence R32 [place] [address] [place] [id number] [address] [place] [phone] Sep, Type 2 diabetes mellitus wit h foot ulcer E11.621 and Chromosomal abnormality, 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 [facility] [address] [place] [id number] [address] [place] [address] Sep, [place] [address] [address] Aug, [place] [address] [address] Aug, [place] [address] [address] Aug, HTN (hypertension) I10 ; Enc ounter for immunization Z23 ; Hypothyroid E03.9 ; Neuropathy G62.9 ; Diabetes mellitus E11.9 ; Depression F32.9 ; Chronic pain G89.29 ; GERD (gastroesophageal reflux disease) K21.9 ; Insomnia G47.00 and COPD (chronic obstructive pulmonary disease) J44.[address] [address] Jun, [address] [address] Jun, [address] [address] May, Essential hypertension, ivis gn 401.1 ; Unspecified hypothyroidism 244.9 ; Insomnia, unspecified 780.52 ; Shortness of breath 786.05 ; Depression 311 ; COPD (chronic obstructive pulmonary disease) 496 ; GERD (gastroesophageal reflux disease) 530.81 and Diabetes 1.5, 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 [address] May, [address] [address] May, [place] [address] [address] May, Shortness of breath 786.05 ; Essential hypertension, benign 401.1 ; Diabetes mellitus 250.00 ; Hyperlipidemia 272.4 ; Hypothyroid 244.9 ; Insomnia 780.52 and Cough 786.[address] [address] Apr, [place] [address] [id number] [address] [place] [id number] March, Shortness of breath 786.05 ; Nausea with vomiting 787.01 ; Essential hypertension, benign 401.1 ; Diabetes mellitus 250.00 ; Hyperlipidemia 272.4 and Hypothyroid 244.9 [facility] [address] [id number] [address] [place] [phone] Feb, [facility] [address] [id number] [address] [place] [phone] Feb, [facility] [address] [id number] [address] [place] [id number] Jan, [facility] [address] [id number] [address] [place] [phone] Jan, [facility] [address] [facility] [id number] [address] [place] [phone] Jan, [facility] [address] [id number] [address] [place] [phone] Jan, [facility] [address] [facility] [id number] [address] [place] [phone] Jan, [facility] [address] [facility] [id number] [address] [place] [phone] Jan, [facility] [address] [facility] [id number] [address] [place] [phone] Jan, [facility] [address] [id number] [address] [place] [phone] Jan, [facility] [address] [id number] [address] [place] [phone] Jan, [facility] [address] [id number] [address] [place] [phone] Jan, [facility] [address] [facility] [id number] [address] [place] [phone] Dec, [facility] [address] [id number] [address] [place] [phone] Dec, 2014 [facility] [address] [id number] [address] [place] [address], [place] [address] Dec, 2014 [facility] [address] [id number] [address] [place] [address], [place] [address] Dec, 2014 [facility] [address] [id number] [address] [place] [address], [place] [address] Dec, 2014 [facility] [address] [id number] [address] [place] [address], [place] [address] Dec, 2014 [facility] [address] [id number] [address] [place] [address], [place] [address] Dec, 2014 [facility] [address] [id number] [address] [place] [address], [place] [address] Dec, 2014 [facility] [address] [id number] [address] [place] [address], [place] [address] Dec, 2014 [facility] [address] [id number] [address] [place] [address], [place] [address] Dec, 2014 [facility] [address] [id number] [address] [place] [address], [place] [address] Oct, [facility] [address] [id number] [address] [place] [address], [place] [address] Oct, [facility] [address] [id number] [address] [place] [address], [place] [address] Oct, [facility] [address] [id number] [address] [place] [address], [place] [address] Oct, [facility] [address] [id number] [address] [place] [address], [place] [address] Oct, [facility] [address] [id number] [address] [place] [address], [place] [address] Oct, [facility] [address] [id number] [address] [place] [address], [place] [address] Oct, [facility] [address] [id number] [address] [place] [address], [place] [address] 05 Oct, 2014 [facility] [address] [id number] [address] [place] [address], [place] [address] Oct, [facility] [address] [id number] [address] [place] [address], [place] [address] Oct, [facility] [address] [id number] [address] [place] [address], [place] [address] Oct, [facility] [address] [id number] [address] [place] [address], [place] [address] Oct, [facility] [address] [id number] [address] [place] [address], [place] [address] Oct, [facility] [address] [id number] [address] [place] [address], [place] [address] Oct, [facility] [address] [id number] [address] [place] [address], [place] [address] Sep, [facility] [address] [id number] [address] [place] [address], [place] [address] Sep, [facility] [address] [id number] [address] [place] [address], [place] [address] Sep, [facility] [address] [id number] [address] [place] [address], [place] [address] Sep, [facility] [address] [id number] [address] [place] [address], [place] [address] Sep, [facility] [address] [id number] [address] [place] [address], [place] [address] Sep, [facility] [address] [id number] [address] [place] [address], [place] [address] Sep, [facility] [address] [id number] [address] [place] [address], [place] [address] Sep, [facility] [address] [id number] [address] [place] [address], [place] [address] Sep, [facility] [address] [id number] [address] [place] [address], [place] [address] Aug, [facility] [address] [id number] [address] [place] [address], [place] [address] 20 Aug, 2014 [facility] [address] [id number] [address] [place] [address], [place] [address] 17 Aug, 2014 [facility] [address] [id number] [address] [place] [address], [place] [address] 17 Aug, 2014 [facility] [address] [id number] [address] [place] [address], [place] [address] 16 Aug, 2014 [facility] [address] [id number] [address] [place] [address], [place] [address] Aug, [facility] [address] [id number] [address] [place] [address], [place] [address] Aug, [facility] [address] [id number] [address] [place] [address], [place] [address] Aug, [facility] [address] [id number] [address] [place] [address], [place] [address] Aug, [facility] [address] [id number] [address] [place] [address], [place] [address] 29 Jul, 2013 [facility] [address] [id number] [address] [place] [address], [place] [address] 29 Sep, 2013 [facility] [address] [id number] [address] [place] [address], [place] [address] 25 Jul, 2013 [facility] [address] [id number] [address] [place] [address], [place] [address] 25 Jul, 2013 [facility] [address] [id number] [address] [place] [address], [place] [address] 25 Jul, 2013 [facility] [address] [id number] [address] [place] [address], [place] [address] 25 Jul, 2013 [facility] [address] [id number] [address] [place] [address] Jul, [facility] [address] [id number] [facility] [place] [address] Jul, [facility] [address] [id number] [facility] [place] [address] Jul, [facility] [address] [id number] [facility] [place] [address] Jul, [facility] [address] [id number] [facility] [place] [address] Jun, [facility] [address] [id number] [address] [place] [address], [place] [address] Jun, [facility] [address] [id number] [address] [place] [address], [place] [address] Jun, [facility] [address] [id number] [address] [place] [address], [place] [address] Jun, [facility] [address] [id number] [address] [place] [address], [place] [address] Jun, [facility] [address] [id number] [address] [place] [address], [place] [address] Jun, [facility] [address] [id number] [address] [place] [address], [place] [address] Jun, [facility] [address] [id number] [address] [place] [address], [place] [address] Jun, [facility] [address] [id number] [address] [place] [address], [place] [address] Jun, [facility] [address] [id number] [address] [place] [address], [place] [address] Jun, [facility] [address] [id number] [address] [place] [address], [place] [address] Jun, [facility] [address] [id number] [address] [place] [address], [place] [address] Jun, [facility] [address] [id number] [facility] [place] [address] May, [facility] [address] [id number] [address] [place] [address], [place] [address] May, [facility] [address] [id number] [address] [place] [address], [place] [address] May, [facility] [address] [id number] [address] [place] [address], [place] [address] May, [facility] [address] [id number] [address] [place] [address], [place] [address] May, [facility] [address] [id number] [address] [place] [address], [place] [address] May, [facility] [address] [id number] [address] [place] [address], [place] [address] March, [facility] [address] [id number] [address] [place] [address], [place] [address] March, [facility] [address] [id number] [address] [place] [address], [place] [address] March, [facility] [address] [id number] [address] [place] [address], [place] [address] March, [facility] [address] [id number] [address] [place] [address], [place] [address] March, [facility] [address] [id number] [address] [place] [address], [place] [address] March, [facility] [address] [id number] [address] [place] [address], [place] [address] Feb, [facility] [address] [id number] [address] [place] [address], [place] [address] Feb, [facility] [address] [id number] [address] [place] [address], [place] [address] Feb, [facility] [address] [id number] [facility] [place] [address] Feb, [facility] [address] [id number] [address] [place] [address], [place] [address] Jan, [facility] [address] [id number] [facility] [place] [address] Jan, [facility] [address] [id number] [address] [place] [address], [place] [address] Jan, [facility] [address] [id number] [address] [place] [address], [place] [address] Jan, [facility] [address] [id number] [address] [place] [address], [place] [address] Jan, [facility] [address] [id number] [address] [place] [address], [place] [address] Jan, [facility] [address] [id number] [address] [place] [address], [place] [address] Jan, [facility] [address] [id number] [address] [place] [address], [place] [address] Jan, [facility] [address] [id number] [address] [place] [address], [place] [address] Jan, [facility] [address] [id number] [address] [place] [address], [place] [address] Jan, [facility] [address] [id number] [address] [place] [address], [place] [address] Jan, [facility] [address] [id number] [address] [place] [address], [place] [address] Jan, [facility] [address] [id number] [address] [place] [address], [place] [address] Dec, [facility] [address] [id number] [address] [place] [address], [place] [address] Dec, [facility] [address] [id number] [address] [place] [address], [place] [address] Dec, [facility] [address] [id number] [address] [place] [address], [place] [address] Dec, [facility] [address] [id number] [address] [place] [address], [place] [address] Dec, [facility] [address] [id number] [address] [place] [address], [place] [address] Dec, [facility] [address] [id number] [address] [place] [address], [place] [address] Nov, [facility] [address] [id number] [address] [place] [address], [place] [address] Nov, [facility] [address] [id number] [address] [place] [address], [place] [address] Oct, [facility] [address] [id number] [address] [place] [address], [place] [address] Oct, [facility] [address] [id number] [address] [place] [address], [place] [address] Oct, [facility] [address] [id number] [address] [place] [address], [place] [address] Oct, [facility] [address] [id number] [address] [place] [address], [place] [address] Oct, [facility] [address] [id number] [address] [place] [address], [place] [address] Oct, [facility] [address] [id number] [address] [place] [address] Sep, [facility] [address] [id number] [address] [place] [address], [place] [address] Sep, [facility] [address] [id number] [address] [place] [address], [place] [address] Sep, [facility] [address] [id number] [address] [place] [address], [place] [address] Sep, [facility] [address] [id number] [address] [place] [address], [place] [address] Aug, [facility] [address] [id number] [address] [place] [address], [place] [address] Aug, [facility] [address] [id number] [address] [place] [address], [place] [address] Aug, [facility] [address] [id number] [address] [place] [address], [place] [address] 17 Jul, 2013 [facility] [address] [id number] [address] [place] [address], [place] [address] 14 Jul, 2013 [facility] [address] [id number] [address] [place] [address], [place] [address] Jul, [facility] [address] [id number] [address] [place] [address], [place] [address] Jun, [facility] [address] [id number] [address] [place] [address], [place] [address] Jun, [facility] [address] [id number] [address] [place] [address], [place] [address] Jun, [facility] [address] [id number] [address] [place] [address], [place] [address] Apr, [facility] [address] [id number] [address] [place] [address], [place] [address] Apr, [facility] [address] [id number] [address] [place] [address], [place] [address] March, [facility] [address] [id number] [address] [place] [address], [place] [address] March, [facility] [address] [id number] [address] [place] [address], [place] [address] March, [facility] [address] [id number] [address] [place] [address], [place] [address] March, [facility] [address] [id number] [address] [place] [address], [place] [address] Feb, [facility] [address] [id number] [address] [place] [address], [place] [address] Jan, [facility] [address] [id number] [address] [place] [address], [place] [address] 13 Dec, 2012 [facility] [address] [id number] [address] [place] [address], [place] [address] 08 Dec, 2012 [facility] [address] [id number] [address] [place] [address], [place] [address] 07 Dec, 2012 [facility] [address] [id number] [address] [place] [address], [place] [address] Nov, [facility] [address] [id number] [address] [place] [address], [place] [address] Oct, [facility] [address] [id number] [address] [place] [address], [place] [address] Oct, [facility] [address] [id number] [address] [place] [address], [place] [address] Sep, [facility] [address] [id number] [address] [place] [address], [place] [address] Sep, [facility] [address] [id number] [address] [place] [address], [place] [address] Sep, [facility] [address] [id number] [address] [place] [address], [place] [address] Sep, [facility] [address] [id number] [address] [place] [address] Sep, [facility] [address] [id number] [address] [place] [address], [place] [address] Sep, [facility] [address] [id number] [address] [place] [address], [place] [address] Sep, [facility] [address] [id number] [address] [place] [address], [place] [address] 16 Aug, 2012 [facility] [address] [id number] [address] [place] [address] 16 Aug, 2012 [facility] [address] [id number] [address] [place] [address], [place] [address] 10 Aug, 2012 [facility] [address] [id number] [address] [place] [address], [place] [address] 10 Aug, 2012 [facility] [address] [id number] [address] [place] [address], [place] [address] 08 Aug, 2012 [facility] [address] [id number] [address] [place] [address], [place] [address] 08 Aug, 2012 [facility] [address] [id number] [address] [place] [address], [place] [address] Aug, [facility] [address] [id number] [address] [place] [address], [place] [address] Aug, [facility] [address] [id number] [address] [place] [address], [place] [address] Jul, [facility] [address] [id number] [address] [place] [address], [place] [address] Jul, [facility] [address] [id number] [address] [place] [address], [place] [address] Jun, [facility] [address] [id number] [address] [place] [address], [place] [address] May, [facility] [address] [id number] [address] [place] [address], [place] [address] Apr, [facility] [address] [id number] [address] [place] [address], [place] [address] Apr, [facility] [address] [id number] [address] [place] [address], [place] [address] Apr, [facility] [address] [id number] [address] [place] [address], [place] [address] March, [facility] [address] [id number] [address] [place] [address], [place] [address] March, [facility] [address] [id number] [address] [place] [address], [place] [address] March, [facility] [address] [id number] [address] [place] [address], [place] [address] March, [facility] [address] [id number] [address] [place] [address], [place] [address] March, [facility] [address] [id number] [address] [place] [address], [place] [address] March, [facility] [address] [id number] [address] [place] [address], [place] [address] March, [facility] [address] [id number] [address] [place] [address], [place] [address] Jan, [facility] [address] [id number] [address] [place] [address], [place] [address] Jan, [facility] [address] [id number] [address] [place] [address], [place] [address] Jan, [facility] [address] [id number] [address] [place] [address], [place] [address] Jan, [facility] [address] [id number] [address] [place] [address], [place] [address] Jan, [facility] [address] [id number] [address] [place] [address], [place] [address] Dec, [facility] [address] [id number] [address] [place] [address], [place] [address] Dec, [facility] [address] [id number] [address] [place] [address], [place] [address] Nov, [facility] [address] [id number] [address] [place] [address], [place] [address] Nov, [facility] [address] [id number] [address] [place] [address], [place] [address] Nov, [facility] [address] [id number] [address] [place] [address] [address] 05 Nov, 2011 [facility] [address] [id number] [address] [place] [address], [place] [address] 21 Oct, 2011 [facility] [address] [id number] [address] [place] [address], [place] [address] 06 Oct, 2011 [facility] [address] [id number] [address] [place] [address], [place] [address] 14 Sep, 2011 [facility] [address] [id number] [address] [place] [address], [place] [address] 10 Sep, 2011 [facility] [address] [id number] [address] [place] [address], [place] [address] 10 Sep, 2011 [facility] [address] [id number] [address] [place] [address], [place] [address] 11 May, 2011 [facility] [address] [id number] [address] [place] [address], [place] [address] 20 Nov, 2010 [facility] [address] [id number] [address] [place] [address], [place] [address] 29 Oct, 2010 [facility] [address] [id number] [address] [place] [address], [place] [address] 14 Oct, 2010 [facility] [address] [id number] [address] [place] [address], [place] [address] 08 Oct, 2010 [facility] [address] [id number] [address] [place] [address], [place] [address] 15 Sep, 2010 [facility] [address] [id number] [address] [place] [address], [place] [address] Sep, [facility] [address] [id number] [address] [place] [address], [place] [address] Aug, [facility] [address] [id number] [address] [place] [address], [place] [address] March, [facility] [address] [id number] [address] [place] [address], [place] [address] 17 Oct, 2009 [facility] [address] [id number] [address] [place] [id number] Oct, [facility] [address] [id number] [address] [place] [address] Oct, [facility] [address] [id number] [address] [place] [address] Oct, [facility] [address] [id number] [address] [place] [id number] Sep, [facility] [address] [id number] [address] [place] [address] Sep, [facility] [address] [id number] [address] [place] [address] Sep, [facility] [address] [id number] [address] [place] [phone] Aug, [facility] [address] [id number] [address] [place] [id number] Aug, [facility] [address] [id number] [address] [place] [phone] Aug, [facility] [address] [id number] [address] [place] [phone] Jan, IMMUNIZATIONS No Known Immunizations SOCIAL HISTORY Never Assessed REASON FOR VISIT Lab PLAN OF CARE VITAL SIGNS MEDICATIONS Unknown Medications RESULTS Name Result Date Reference Range HEMOCCULT (IN HOUSE) 2017-11-15 RESULTS Negative Control + Lot # [id number] Exp date 11/2018 HEMOCCULT (IN HOUSE)-Additional* 2017-11-07 RESULTS Negative Control + Lot # [id number] Exp Date 11/2018 PROCEDURES Procedure Date Ordered Result Body Site TEST FOR BLOOD, FECES Nov 15, 2017 INSTRUCTIONS MEDICATIONS ADMINISTERED No Known Medications [...]
--- OUTSIDE RECORDS SUMMARY | 2020-06-13 16:35 | XMS REPORT ---
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 Name Role Phone PARKERSHAYLEE MckeonELE Unavailable PROBLEMS Type Condition ICD9-CM Code [id number] Code Onset Dates Condition S tatus SNOMED Code Problem Gastroesophageal reflux disease with esophagitis K 21.0 Active 620600627 Problem alf current use of insulin Z79.4 Active 554266372 Problem Irritable bowel syndrome with diarrhea K58.0 Active 154067295 Problem Diabetes mellitus E11.9 Active 73 770553 Problem Recurrent major depressive disorder, in partial remission F33.41 Active 03609443 Problem Essential (primary) hypertension I10 Active 50957657 Problem Type 2 diabetes mellitus with hyperglycemia E11.65 Active 98021135 Problem Current non-adherence to medical treatment Z91.19 Active 9847042 Problem Pulmonary emphysema, unspecified emphysema type J4 3.9 Active 33077574 Problem Neuropathy G62.9 Active 493637978 Problem Hypothyroid E03.9 Active 27468193 Problem Thrombocytosis D47.3 Active 11232 09 Problem Overactive bladder N32.81 Active 2 44435295 Problem Chronic pain G89.29 Active 7571426 1 Problem Mixed hyperlipidemia E78.2 Active 796557931 ALLERGIES No Information ENCOUNTERS Encounter Location Date Diagnosis [facility] [address] [facility] [id number] [address] [place] [phone] March, [facility] [address] [facility] [id number] [address] [place] [address] March, Hypothyroid E03.9 [facility] [address] [facility] [id number] [address] [place] [address] March, Diabetes mellitus E11.9 and Hypothyroid E03.9 [facility] [address] [facility] [id number] [address] [place] [address] March, Diabetes mellitus E11.9 [place] [address] [place] [id number] [address] [place] [address] March, Hypothyroid E03.9 and Elevat ed liver enzymes R74.8 [place] [address] [place] [id number] [address] [place] [address] March, Type 2 diabetes mellitus wit h hyperglycemia E11.65 ; 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 ; Pulmonary emphysema, unspecified emphysema type J43.9 ; Hypothyroid E03.9 ; Neuropathy G62.9 ; Mixed hyperlipidemia E78.2 ; Chronic pain G89.29 ; Gastroesophageal reflux disease with esophagitis K21.0 ; Irritable bowel syndrome with diarrhea K58.0 ; Overactive bladder N32.81 and Recurrent major depressive disorder, in partial remission F33.41 [place] [address] [place] [id number] [address] [place] [address] Feb, Chronic pain G89.29 [place] [address] [address] Feb, Type 2 diabetes mellitus wit h hyperglycemia E11.65 and Skin lesion of scalp L98.9 [place] [id number] [address] [place] [address] Feb, [place] [address] [place] [id number] [address] [place] [address] Jan, Type 2 diabetes mellitus wit h hyperglycemia E11.65 ; 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 ; Essential (primary) hypertension I10 ; Pulmonary emphysema, unspecified emphysema type J43.9 ; Chronic pain G89.29 ; Controlled substance agreement signed Z79.899 ; Hypothyroid E03.9 ; Neuropathy G62.9 ; Gastroesophageal reflux disease with esophagitis K21.0 ; Overactive bladder N32.81 ; Depression F32.9 and Irritable bowel syndrome with diarrhea K58.0 [place] [address] [place] [id number] [address] [place] [address] Jan, [place] [address] [place] [id number] [address] [place] [address] Jan, Controlled substance agreeme nt signed Z79.899 [place] [id number] [facility] [id number] [address] [place] [phone] 08 Dec, 2017 Type 2 diabetes mellitus wit h hyperglycemia E11.65 ; Controlled substance agreement signed Z79.899 ; 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 ; Essential (primary) hypertension I10 ; Hypothyroid E03.9 ; Neuropathy G62.9 ; Depression F32.9 ; Mixed hyperlipidemia E78.2 ; Irritable bowel syndrome with diarrhea K58.0 ; Gastroesophageal reflux disease with esophagitis K21.0 ; Thrombocytosis D47.3 ; Current non-adherence to medical treatment Z91.19 and Overweight (BMI 25.0-29.9) E66.3 [place] [address] [place] [id number] [address] [place] [address] 02 Dec, 2017 Controlled substance agreeme nt signed Z79.899 [place] [address] [facility] [id number] [address] [place] [address] Nov, Type 2 diabetes mellitus wit h hyperglycemia E11.65 and Current non- adherence to medical treatment Z91.19 [place] [address] [place] [id number] [address] [place] [address] Nov, [place] [address] [place] [id number] [address] [place] [address] Nov, Chronic pain G89.29 [place] [address] [facility] [id number] [address] [place] [address] Nov, [place] [address] [facility] [id number] [address] [place] [address] Nov, Hypothyroid E03.9 [place] [address] [facility] [id number] [address] [place] [address] Nov, Hypothyroid E03.9 [place] [address] [facility] [id number] [address] [place] [address] Nov, Pulmonary emphysema, unspeci fied emphysema type J43.9 and Irritable bowel syndrome with diarrhea K58.0 [place] [address] [facility] [id number] [address] [place] [address] Oct, [place] [address] [facility] [id number] [address] [place] [address] Oct, [place] [address] [facility] [id number] [address] [place] [address] Oct, [place] [address] [facility] [id number] [address] [place] [address] Oct, [place] [address] [facility] [id number] [address] [place] [address] Oct, Chronic pain G89.29 [place] [address] [place] [id number] [address] [place] [address] Oct, Diabetes mellitus E11.9 ; De pression F32.9 ; Mixed hyperlipidemia E78.2 ; Hypotension, unspecified hypotension type I95.9 ; Pulmonary emphysema, unspecified emphysema type J43.9 and Weight loss, unintentional R63.4 [place] [address] [place] [id number] [address] [place] [address] Oct, Chronic pain G89.29 [place] [address] [place] [id number] [address] [place] [address] Sep, Chronic pain G89.29 [place] [address] [place] [id number] [address] [place] [address] Sep, Hypothyroid E03.9 and Diabet es mellitus E11.9 [place] [address] [facility] [id number] [address] [place] [address] Aug, Type 2 diabetes mellitus wit h hyperglycemia E11.65 ; 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 ; Essential (primary) hypertension I10 ; Hypothyroid E03.9 ; Neuropathy G62.9 ; Chronic pain G89.29 ; Mixed hy perlipidemia E78.2 and Encounter for immunization Z23 [place] [address] [facility] [id number] [address] [place] [address] Aug, Chronic pain G89.29 [facility] [address] [facility] [id number] [address] [place] [address] Aug, Overactive bladder N32.81 ; Diabetes mellitus E11.9 and Chronic pain G89.29 [facility] [address] [facility] [id number] [address] [place] [address] Jul, [facility] [address] [facility] [id number] [address] [place] [phone] Jun, [facility] [address] [place] [id number] [address] [place] [phone] Jun, [facility] [address] [place] [id number] [place] [address] Jun, Hypothyroid E03.9 [facility] [address] [place] [id number] [place] [address] Jun, Diabetes mellitus E11.9 ; Hy pothyroid E03.9 ; Neuropathy G62.9 ; Chronic pain G89.29 and Neck mass R22.1 [facility] [address] [place] [id number] [address] [place] [address] Apr, [facility] [address] [place] [id number] [address] [place] [address] Apr, Acute cystitis without hemat uria N30.00 [facility] [address] [facility] [id number] [address] [place] [address] March, [facility] [address] [place] [id number] [address] [place] [address] March, [facility] [address] [place] [id number] [address] [place] [address] March, Near syncope R55 [facility] [address] [place] [id number] [address] [place] [address] Feb, [facility] [address] [place] [id number] [address] [place] [address] Feb, Chronic pain G89.29 [facility] [address] [facility] [id number] [address] [place] [address] Feb, [facility] [address] [facility] [id number] [address] [place] [address] Feb, [facility] [address] [facility] [id number] [address] [place] [address] Jan, Chronic pain G89.29 [facility] [address] [facility] [id number] [address] [place] [address] Jan, [facility] [address] [address] Jan, [facility] [address] [facility] [id number] [address] [place] [address] Jan, Diabetes mellitus E11.9 ; Hy pothyroid E03.9 ; GERD (gastroesophageal reflux disease) K21.9 ; Insomnia G47.00 ; Functional diarrhea K59.1 ; Neuropathy G62.9 ; Depression F32.9 ; Chronic pain G89.29 ; Irritable bowel syndrome with diarrhea K58.0 ; Overactive bladder N32.81 ; Mixed hyperlipidemia E78.2 and Bronchitis J40 [facility] [address] [facility] [id number] [address] [place] [address] Dec, [facility] [address] [facility] [id number] [address] [place] [address] Dec, [facility] [address] [facility] [id number] [address] [place] [address] Dec, [facility] [address] [facility] [id number] [address] [place] [address] Dec, [facility] [address] [facility] [id number] [address] [place] [address] Dec, Chronic pain G89.29 [facility] [address] [facility] [id number] [address] [place] [address] Dec, [facility] [address] [place] [id number] [address] [place] [address] Dec, [facility] [address] [place] [id number] [place] [address] Dec, Type 2 diabetes mellitus wit h foot ulcer E11.621 [facility] [address] [place] [id number] [address] [place] [id number] 17 Dec, 2016 Type 2 diabetes mellitus wit h foot ulcer E11.621 [facility] [address] [place] [id number] [address] [place] [address] Dec, HTN (hypertension) I10 ; Dep ression F32.9 ; Type 2 diabetes mellitus with foot ulcer E11.621 ; Functional diarrhea K59.1 ; Irritable bowel syndrome with diarrhea K58.0 ; Chronic pain G89.29 ; Insomnia G47.00 ; Overactive bladder N32.81 ; Mixed hyperlipidemia E78.2 ; Gastroesophageal reflux disease with esophagitis K21.0 and Acquired hypothyroidism E03.9 [place] [address] [address] Nov, [place] [address] [address] Oct, [place] [address] [address] Oct, [place] [address] [place] [id number] [address] [place] [address] Oct, [place] [address] [place] [id number] [address] [place] [address] Sep, Functional diarrhea K59.1 ; HTN (hypertension) I10 ; Diabetes mellitus E11.9 ; Depression F32.9 ; Overactive bladder N32.81 ; Mixed hyperlipidemia E78.2 ; Gastroesophageal reflux disease without esophagitis K21.9 ; Chronic pain G89.29 ; Insomnia G47.00 and Acquired hypothyroidism E03.9 [place] [address] [address] 04 Sep, 2016 [place] [address] [address] 11 Aug, 2016 Encounter for immunization Z 23 [place] [address] [address] 06 Aug, 2016 [place] [address] [address] 09 Jul, 2016 [place] [address] [address] Jun, Type 2 diabetes mellitus wit hout complications E11.9 ; HTN (hypertension) I10 ; Hypothyroid E03.9 ; Neuropathy G62.9 ; Depression F32.9 ; Chronic pain G89.29 ; GERD (gastroesophageal reflux disease) K21.9 ; Insomnia G47.00 ; Overactive bladder N32.81 ; Mixed hyperlipidemia E78.2 ; Diarrhea of infectious origin A09 and Environmental allergies Z91.09 [place] [address] [address] Apr, [place] [address] [address] March, Hypothyroidism, unspecified E03.9 and Mixed hyperlipidemia E78.2 [place] [address] [address] March, Diabetes mellitus E11.9 ; HT N (hypertension) I10 ; Hypothyroid E03.9 ; Depression F32.9 ; Overactive bladder N32.81 ; Other chronic pain G89.29 ; Lumbago with sciatica, unspecified side M54.40 ; Environmental allergies Z91.09 and Gastroesophageal reflux disease, esophagitis presence not specified K21.9 [place] [address] [address] March, [place] [address] [address] Jan, HTN (hypertension) I10 ; Hyp othyroid E03.9 ; Neuropathy G62.9 ; Diabetes mellitus E11.9 ; Chronic pain G89.29 ; GERD (gastroesophageal reflux disease) K21.9 ; Overactive bladder N32.81 and Depression F32.9 [facility] [address] [facility] [id number] [address] [place] [address] 12 Dec, 2015 Ear pain, left H92.02 ; HTN (hypertension) I10 ; Hypothyroid E03.9 ; Neuropathy G62.9 ; Diabetes mellitus E11.9 ; Depression F32.9 ; GERD (gastroesophageal reflux disease) K21.9 ; Insomnia G47.00 and Overactive bladder N32.81 [place] [id number] [place] [address] Nov, Overactive bladder N32.81 an d Chronic pain G89.29 [place] [address] [place] [id number] [address] [place] [phone] Nov, Kidney failure N19 [place] [address] [place] [id number] [address] [place] [address] Nov, [place] [address] [place] [address] Nov, [place] [address] [place] [id number] [address] [place] [address] Nov, Diabetes mellitus E11.9 ; De pression F32.9 ; Chronic pain G89.29 ; GERD (gastroesophageal reflux disease) K21.9 ; Insomnia G47.00 ; HTN (hypertension) I10 ; Hypothyroid E03.9 ; COPD (chronic obstructive pulmonary disease) J44.9 ; Bladder incontinence R32 and Incontinence R32 [place] [address] [place] [id number] [address] [place] [address] Sep, Type 2 diabetes mellitus wit h foot ulcer E11.621 and Chromosomal abnormality, 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 [facility] [address] [place] [id number] [address] [place] [address] Sep, [place] [address] [address] Aug, [place] [address] [address] Aug, [place] [address] [address] Aug, HTN (hypertension) I10 ; Enc ounter for immunization Z23 ; Hypothyroid E03.9 ; Neuropathy G62.9 ; Diabetes mellitus E11.9 ; Depression F32.9 ; Chronic pain G89.29 ; GERD (gastroesophageal reflux disease) K21.9 ; Insomnia G47.00 and COPD (chronic obstructive pulmonary disease) J44.[address] [address] Jun, [address] [address] Jun, [address] [address] May, Essential hypertension, ivis gn 401.1 ; Unspecified hypothyroidism 244.9 ; Insomnia, unspecified 780.52 ; Shortness of breath 786.05 ; Depression 311 ; COPD (chronic obstructive pulmonary disease) 496 ; GERD (gastroesophageal reflux disease) 530.81 and Diabetes 1.5, 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 [address] May, [address] [address] May, [place] [address] [address] May, Shortness of breath 786.05 ; Essential hypertension, benign 401.1 ; Diabetes mellitus 250.00 ; Hyperlipidemia 272.4 ; Hypothyroid 244.9 ; Insomnia 780.52 and Cough 786.[address] [address] Apr, [place] [address] [id number] [address] [place] [address] March, Shortness of breath 786.05 ; Nausea with vomiting 787.01 ; Essential hypertension, benign 401.1 ; Diabetes mellitus 250.00 ; Hyperlipidemia 272.4 and Hypothyroid 244.9 [facility] [address] [id number] [address] [place] [address] Feb, [facility] [address] [id number] [address] [place] [address] Feb, [facility] [address] [id number] [address] [place] [address] Jan, [facility] [address] [id number] [address] [place] [address] Jan, [facility] [address] [facility] [id number] [address] [place] [address] Jan, [facility] [address] [id number] [address] [place] [address] Jan, [facility] [address] [facility] [id number] [address] [place] [phone] Jan, [facility] [address] [facility] [id number] [address] [place] [phone] Jan, [facility] [address] [facility] [id number] [address] [place] [address] Jan, [facility] [address] [id number] [address] [place] [address] Jan, [facility] [address] [id number] [address] [place] [address] Jan, [facility] [address] [id number] [address] [place] [phone] Jan, [facility] [address] [facility] [id number] [address] [place] [phone] Dec, [facility] [address] [id number] [address] [place] [phone] Dec, 2014 [facility] [address] [id number] [address] [place] [address], [place] [address] Dec, 2014 [facility] [address] [id number] [address] [place] [address], [place] [address] Dec, 2014 [facility] [address] [id number] [address] [place] [address], [place] [address] Dec, 2014 [facility] [address] [id number] [address] [place] [address], [place] [address] Dec, 2014 [facility] [address] [id number] [address] [place] [address], [place] [address] Dec, 2014 [facility] [address] [id number] [address] [place] [address], [place] [address] Dec, 2014 [facility] [address] [id number] [address] [place] [address], [place] [address] Dec, 2014 [facility] [address] [id number] [address] [place] [address], [place] [address] Dec, 2014 [facility] [address] [id number] [address] [place] [address], [place] [address] Oct, [facility] [address] [id number] [address] [place] [address], [place] [address] Oct, [facility] [address] [id number] [address] [place] [address], [place] [address] Oct, [facility] [address] [id number] [address] [place] [address], [place] [address] Oct, [facility] [address] [id number] [address] [place] [address], [place] [address] Oct, [facility] [address] [id number] [address] [place] [address], [place] [address] Oct, [facility] [address] [id number] [address] [place] [address], [place] [address] Oct, [facility] [address] [id number] [address] [place] [address], [place] [address] 05 Oct, 2014 [facility] [address] [id number] [address] [place] [address], [place] [address] Oct, [facility] [address] [id number] [address] [place] [address], [place] [address] Oct, [facility] [address] [id number] [address] [place] [address], [place] [address] Oct, [facility] [address] [id number] [address] [place] [address], [place] [address] Oct, [facility] [address] [id number] [address] [place] [address], [place] [address] Oct, [facility] [address] [id number] [address] [place] [address], [place] [address] Oct, [facility] [address] [id number] [address] [place] [address], [place] [address] Sep, [facility] [address] [id number] [address] [place] [address], [place] [address] Sep, [facility] [address] [id number] [address] [place] [address], [place] [address] Sep, [facility] [address] [id number] [address] [place] [address], [place] [address] Sep, [facility] [address] [id number] [address] [place] [address], [place] [address] Sep, [facility] [address] [id number] [address] [place] [address], [place] [address] Sep, [facility] [address] [id number] [address] [place] [address], [place] [address] Sep, [facility] [address] [id number] [address] [place] [address], [place] [address] Sep, [facility] [address] [id number] [address] [place] [address], [place] [address] Sep, [facility] [address] [id number] [address] [place] [address], [place] [address] Aug, [facility] [address] [id number] [address] [place] [address], [place] [address] 20 Aug, 2014 [facility] [address] [id number] [address] [place] [address], [place] [address] 17 Aug, 2014 [facility] [address] [id number] [address] [place] [address], [place] [address] 17 Aug, 2014 [facility] [address] [id number] [address] [place] [address], [place] [address] 16 Aug, 2014 [facility] [address] [id number] [address] [place] [address], [place] [address] Aug, [facility] [address] [id number] [address] [place] [address], [place] [address] Aug, [facility] [address] [id number] [address] [place] [address], [place] [address] Aug, [facility] [address] [id number] [address] [place] [address], [place] [address] Aug, [facility] [address] [id number] [address] [place] [address], [place] [address] 29 Jul, 2013 [facility] [address] [id number] [address] [place] [address], [place] [address] 29 Sep, 2013 [facility] [address] [id number] [address] [place] [address], [place] [address] 25 Jul, 2013 [facility] [address] [id number] [address] [place] [address], [place] [address] 25 Jul, 2013 [facility] [address] [id number] [address] [place] [address], [place] [address] 25 Jul, 2013 [facility] [address] [id number] [address] [place] [address], [place] [address] 25 Jul, 2013 [facility] [address] [id number] [facility] [place] [address] Jul, [facility] [address] [id number] [facility] [place] [address] Jul, [facility] [address] [id number] [facility] [place] [address] Jul, [facility] [address] [id number] [facility] [place] [address] Jul, [facility] [address] [id number] [facility] [place] [address] Jun, [facility] [address] [id number] [address] [place] [address], [place] [address] Jun, [facility] [address] [id number] [address] [place] [address], [place] [address] Jun, [facility] [address] [id number] [address] [place] [address], [place] [address] Jun, [facility] [address] [id number] [address] [place] [address], [place] [address] Jun, [facility] [address] [id number] [address] [place] [address], [place] [address] Jun, [facility] [address] [id number] [address] [place] [address], [place] [address] Jun, [facility] [address] [id number] [address] [place] [address], [place] [address] Jun, [facility] [address] [id number] [address] [place] [address], [place] [address] Jun, [facility] [address] [id number] [address] [place] [address], [place] [address] Jun, [facility] [address] [id number] [address] [place] [address], [place] [address] Jun, [facility] [address] [id number] [address] [place] [address], [place] [address] Jun, [facility] [address] [id number] [address] [place] [address] May, [facility] [address] [id number] [address] [place] [address], [place] [address] May, [facility] [address] [id number] [address] [place] [address], [place] [address] May, [facility] [address] [id number] [address] [place] [address], [place] [address] May, [facility] [address] [id number] [address] [place] [address], [place] [address] May, [facility] [address] [id number] [address] [place] [address], [place] [address] May, [facility] [address] [id number] [address] [place] [address], [place] [address] March, [facility] [address] [id number] [address] [place] [address], [place] [address] March, [facility] [address] [id number] [address] [place] [address], [place] [address] March, [facility] [address] [id number] [address] [place] [address], [place] [address] March, [facility] [address] [id number] [address] [place] [address], [place] [address] March, [facility] [address] [id number] [address] [place] [address], [place] [address] March, [facility] [address] [id number] [address] [place] [address], [place] [address] Feb, [facility] [address] [id number] [address] [place] [address], [place] [address] Feb, [facility] [address] [id number] [address] [place] [address], [place] [address] Feb, [facility] [address] [id number] [facility] [place] [address] Feb, [facility] [address] [id number] [address] [place] [address], [place] [address] Jan, [facility] [address] [id number] [facility] [place] [address] Jan, [facility] [address] [id number] [address] [place] [address], [place] [address] Jan, [facility] [address] [id number] [address] [place] [address], [place] [address] Jan, [facility] [address] [id number] [address] [place] [address], [place] [address] Jan, [facility] [address] [id number] [address] [place] [address], [place] [address] Jan, [facility] [address] [id number] [address] [place] [address], [place] [address] Jan, [facility] [address] [id number] [address] [place] [address], [place] [address] Jan, [facility] [address] [id number] [address] [place] [address], [place] [address] Jan, [facility] [address] [id number] [address] [place] [address], [place] [address] Jan, [facility] [address] [id number] [address] [place] [address], [place] [address] Jan, [facility] [address] [id number] [address] [place] [address], [place] [address] Jan, [facility] [address] [id number] [address] [place] [address], [place] [address] Dec, [facility] [address] [id number] [address] [place] [address], [place] [address] Dec, [facility] [address] [id number] [address] [place] [address], [place] [address] Dec, [facility] [address] [id number] [address] [place] [address], [place] [address] Dec, [facility] [address] [id number] [address] [place] [address], [place] [address] Dec, [facility] [address] [id number] [address] [place] [address], [place] [address] Dec, [facility] [address] [id number] [address] [place] [address], [place] [address] Nov, [facility] [address] [id number] [address] [place] [address], [place] [address] Nov, [facility] [address] [id number] [address] [place] [address], [place] [address] Oct, [facility] [address] [id number] [address] [place] [address], [place] [address] Oct, [facility] [address] [id number] [address] [place] [address], [place] [address] Oct, [facility] [address] [id number] [address] [place] [address], [place] [address] Oct, [facility] [address] [id number] [address] [place] [address], [place] [address] Oct, [facility] [address] [id number] [address] [place] [address], [place] [address] Oct, [facility] [address] [id number] [address] [place] [address] Sep, [facility] [address] [id number] [address] [place] [address], [place] [address] Sep, [facility] [address] [id number] [address] [place] [address], [place] [address] Sep, [facility] [address] [id number] [address] [place] [address], [place] [address] Sep, [facility] [address] [id number] [address] [place] [address], [place] [address] Aug, [facility] [address] [id number] [address] [place] [address], [place] [address] Aug, [facility] [address] [id number] [address] [place] [address], [place] [address] Aug, [facility] [address] [id number] [address] [place] [address], [place] [address] 17 Jul, 2013 [facility] [address] [id number] [address] [place] [address], [place] [address] 14 Jul, 2013 [facility] [address] [id number] [address] [place] [address], [place] [address] Jul, [facility] [address] [id number] [address] [place] [address], [place] [address] Jun, [facility] [address] [id number] [address] [place] [address], [place] [address] Jun, [facility] [address] [id number] [address] [place] [address], [place] [address] Jun, [facility] [address] [id number] [address] [place] [address], [place] [address] Apr, [facility] [address] [id number] [address] [place] [address], [place] [address] Apr, [facility] [address] [id number] [address] [place] [address], [place] [address] March, [facility] [address] [id number] [address] [place] [address], [place] [address] March, [facility] [address] [id number] [address] [place] [address], [place] [address] March, [facility] [address] [id number] [address] [place] [address], [place] [address] March, [facility] [address] [id number] [address] [place] [address], [place] [address] Feb, [facility] [address] [id number] [address] [place] [address], [place] [address] Jan, [facility] [address] [id number] [address] [place] [address], [place] [address] 13 Dec, 2012 [facility] [address] [id number] [address] [place] [address], [place] [address] 08 Dec, 2012 [facility] [address] [id number] [address] [place] [address], [place] [address] 07 Dec, 2012 [facility] [address] [id number] [address] [place] [address], [place] [address] Nov, [facility] [address] [id number] [address] [place] [address], [place] [address] Oct, [facility] [address] [id number] [address] [place] [address], [place] [address] Oct, [facility] [address] [id number] [address] [place] [address], [place] [address] Sep, [facility] [address] [id number] [address] [place] [address], [place] [address] Sep, [facility] [address] [id number] [address] [place] [address], [place] [address] Sep, [facility] [address] [id number] [address] [place] [address], [place] [address] Sep, [facility] [address] [id number] [address] [place] [address] Sep, [facility] [address] [id number] [address] [place] [address], [place] [address] Sep, [facility] [address] [id number] [address] [place] [address], [place] [address] Sep, [facility] [address] [id number] [address] [place] [address], [place] [address] 16 Aug, 2012 [facility] [address] [id number] [address] [place] [address] 16 Aug, 2012 [facility] [address] [id number] [address] [place] [address], [place] [address] 10 Aug, 2012 [facility] [address] [id number] [address] [place] [address], [place] [address] 10 Aug, 2012 [facility] [address] [id number] [address] [place] [address], [place] [address] 08 Aug, 2012 [facility] [address] [id number] [address] [place] [address], [place] [address] 08 Aug, 2012 [facility] [address] [id number] [address] [place] [address], [place] [address] Aug, [facility] [address] [id number] [address] [place] [address], [place] [address] Aug, [facility] [address] [id number] [address] [place] [address], [place] [address] Jul, [facility] [address] [id number] [address] [place] [address], [place] [address] Jul, [facility] [address] [id number] [address] [place] [address], [place] [address] Jun, [facility] [address] [id number] [address] [place] [address], [place] [address] May, [facility] [address] [id number] [address] [place] [address], [place] [address] Apr, [facility] [address] [id number] [address] [place] [address], [place] [address] Apr, [facility] [address] [id number] [address] [place] [address], [place] [address] Apr, [facility] [address] [id number] [address] [place] [address], [place] [address] March, [facility] [address] [id number] [address] [place] [address], [place] [address] March, [facility] [address] [id number] [address] [place] [address], [place] [address] March, [facility] [address] [id number] [address] [place] [address], [place] [address] March, [facility] [address] [id number] [address] [place] [address], [place] [address] March, [facility] [address] [id number] [address] [place] [address], [place] [address] March, [facility] [address] [id number] [address] [place] [address], [place] [address] March, [facility] [address] [id number] [address] [place] [address], [place] [address] Jan, [facility] [address] [id number] [address] [place] [address], [place] [address] Jan, [facility] [address] [id number] [address] [place] [address], [place] [address] Jan, [facility] [address] [id number] [address] [place] [address], [place] [address] Jan, [facility] [address] [id number] [address] [place] [address], [place] [address] Jan, [facility] [address] [id number] [address] [place] [address], [place] [address] Dec, [facility] [address] [id number] [address] [place] [address], [place] [address] Dec, [facility] [address] [id number] [address] [place] [address], [place] [address] Nov, [facility] [address] [id number] [address] [place] [address], [place] [address] Nov, [facility] [address] [id number] [address] [place] [address], [place] [address] Nov, [facility] [address] [id number] [address] [place] [address] [address] 05 Nov, 2011 [facility] [address] [id number] [address] [place] [address], [place] [address] 21 Oct, 2011 [facility] [address] [id number] [address] [place] [address], [place] [address] 06 Oct, 2011 [facility] [address] [id number] [address] [place] [address], [place] [address] 14 Sep, 2011 [facility] [address] [id number] [address] [place] [address], [place] [address] 10 Sep, 2011 [facility] [address] [id number] [address] [place] [address], [place] [address] 10 Sep, 2011 [facility] [address] [id number] [address] [place] [address], [place] [address] 11 May, 2011 [facility] [address] [id number] [address] [place] [address], [place] [address] 20 Nov, 2010 [facility] [address] [id number] [address] [place] [address], [place] [address] 29 Oct, 2010 [facility] [address] [id number] [address] [place] [address], [place] [address] 14 Oct, 2010 [facility] [address] [id number] [address] [place] [address], [place] [address] 08 Oct, 2010 [facility] [address] [id number] [address] [place] [address], [place] [address] 15 Sep, 2010 [facility] [address] [id number] [address] [place] [address], [place] [address] Sep, [facility] [address] [id number] [address] [place] [address], [place] [address] Aug, [facility] [address] [id number] [address] [place] [address], [place] [address] March, [facility] [address] [id number] [address] [place] [address], [place] [address] 17 Oct, 2009 [facility] [address] [id number] [address] [place] [address] Oct, [facility] [address] [id number] [address] [place] [address] Oct, [facility] [address] [id number] [address] [place] [address] Oct, [facility] [address] [id number] [address] [place] [address] Sep, [facility] [address] [id number] [address] [place] [address] Sep, [facility] [address] [id number] [address] [place] [address] Sep, [facility] [address] [id number] [address] [place] [address] Aug, [facility] [address] [id number] [address] [place] [address] Aug, [facility] [address] [id number] [address] [place] [address] Aug, [facility] [address] [id number] [address] [place] [address] Jan, IMMUNIZATIONS No Known Immunizations SOCIAL HISTORY Never Assessed REASON FOR VISIT Controlled Med Refill PLAN OF CARE VITAL SIGNS MEDICATIONS Medication Instructions Dosage Frequency Start Date End Date Duration S gato Tramadol HCl 50 mg Orally 4 times a day TAKE ONE TABLET BY MOUTH EVERY 6 hours as needed 6h Nov, 28 days Active RESULTS No Results PROCEDURES [...]
--- OUTSIDE RECORDS SUMMARY | 2020-06-13 16:35 | XMS REPORT ---
Author Author Jah GIBBS Organization [facility] Address [address] [place] [address] Care Team Providers Care Display Manager Name Role Phone GIBBS CHLOE Unavailable PROBLEMS Type Condition ICD9-CM Code [id number] Code Onset Dates Condition S tatus SNOMED Code Problem Overactive bladder N32.81 Active 2 27751543 Problem Gastroesophageal reflux disease without esophagitis K21.9 Active 442772180 Problem Mixed hyperlipidemia E78.2 Active 512275258 Problem Type 2 diabetes mellitus without complications E11 .9 Active 331654301 Problem [facility] current use of insulin Z79.4 Active 715953789 Problem Irritable bowel syndrome with diarrhea K58.0 Active 683764941 Problem Functional diarrhea K59.1 Active 36072203 Problem Diabetes mellitus E11.9 Active 73 870599 Problem Gastroesophageal reflux disease with esophagitis K 21.0 Active 991845137 Problem Chronic pain G89.29 Active 8486304 1 Problem Insomnia G47.00 Active 748486439 Problem HTN (hypertension) I10 Active 3 7213836 Problem Neuropathy G62.9 Active 999164947 Problem Depression F32.9 Active 12280877 Problem Hypothyroid E03.9 Active 80742711 Problem GERD (gastroesophageal reflux disease) K21.9 Active 851932624 ALLERGIES No Information SOCIAL HISTORY Never Assessed [...]
--- OUTSIDE RECORDS SUMMARY | 2020-06-13 16:35 | XMS REPORT ---
Author Author Jah PARKER Organization [facility] Address [address] [place] [address] Care Team Providers Care Computer Aided Design Operator Name Role Phone PARKERSHAYLEE MckeonELE Unavailable PROBLEMS Type Condition ICD9-CM Code [id number] Code Onset Dates Condition S tatus SNOMED Code Problem Gastroesophageal reflux disease with esophagitis K 21.0 Active 772938503 Problem FDC current use of insulin Z79.4 Active 744300857 Problem Irritable bowel syndrome with diarrhea K58.0 Active 495182097 Problem Diabetes mellitus E11.9 Active 73 523289 Problem Recurrent major depressive disorder, in partial remission F33.41 Active 76593082 Problem Essential (primary) hypertension I10 Active 37399661 Problem Type 2 diabetes mellitus with hyperglycemia E11.65 Active 16186585 Problem Current non-adherence to medical treatment Z91.19 Active 7475599 Problem Pulmonary emphysema, unspecified emphysema type J4 3.9 Active 68068006 Problem Neuropathy G62.9 Active 293665434 Problem Hypothyroid E03.9 Active 21130744 Problem Thrombocytosis D47.3 Active 69877 09 Problem Overactive bladder N32.81 Active 2 17175901 Problem Chronic pain G89.29 Active 0784088 1 Problem Mixed hyperlipidemia E78.2 Active [id number] ALLERGIES No Information ENCOUNTERS Encounter Location Date Diagnosis [facility] [address] [facility] [id number] [address] [place] [phone] March, [facility] [address] [facility] [id number] [address] [place] [address] March, Hypothyroid E03.9 [facility] [address] [facility] [id number] [address] [place] [address] March, Diabetes mellitus E11.9 and Hypothyroid E03.9 [facility] [address] [facility] [id number] [address] [place] [address] March, Diabetes mellitus E11.9 [id number] [place] [id number] [address] [place] [address] March, Hypothyroid E03.9 and Elevat ed liver enzymes R74.8 [place] [address] [place] [id number] [address] [place] [address] March, Type 2 diabetes mellitus wit h hyperglycemia E11.65 ; 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 ; Pulmonary emphysema, unspecified emphysema type J43.9 ; Hypothyroid E03.9 ; Neuropathy G62.9 ; Mixed hyperlipidemia E78.2 ; Chronic pain G89.29 ; Gastroesophageal reflux disease with esophagitis K21.0 ; Irritable bowel syndrome with diarrhea K58.0 ; Overactive bladder N32.81 and Recurrent major depressive disorder, in partial remission F33.41 [place] [address] [place] [id number] [address] [place] [address] Feb, Chronic pain G89.29 [place] [address] [address] Feb, Type 2 diabetes mellitus wit h hyperglycemia E11.65 and Skin lesion of scalp L98.9 [place] [id number] [address] [place] [address] Feb, [place] [address] [place] [id number] [address] [place] [address] Jan, Type 2 diabetes mellitus wit h hyperglycemia E11.65 ; 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 ; Essential (primary) hypertension I10 ; Pulmonary emphysema, unspecified emphysema type J43.9 ; Chronic pain G89.29 ; Controlled substance agreement signed Z79.899 ; Hypothyroid E03.9 ; Neuropathy G62.9 ; Gastroesophageal reflux disease with esophagitis K21.0 ; Overactive bladder N32.81 ; Depression F32.9 and Irritable bowel syndrome with diarrhea K58.0 [place] [address] [place] [id number] [address] [place] [phone] Jan, [place] [address] [place] [id number] [address] [place] [address] Jan, Controlled substance agreeme nt signed Z79.899 [place] [id number] [facility] [id number] [address] [place] [address] 08 Dec, 2017 Type 2 diabetes mellitus wit h hyperglycemia E11.65 ; Controlled substance agreement signed Z79.899 ; 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 ; Essential (primary) hypertension I10 ; Hypothyroid E03.9 ; Neuropathy G62.9 ; Depression F32.9 ; Mixed hyperlipidemia E78.2 ; Irritable bowel syndrome with diarrhea K58.0 ; Gastroesophageal reflux disease with esophagitis K21.0 ; Thrombocytosis D47.3 ; Current non-adherence to medical treatment Z91.19 and Overweight (BMI 25.0-29.9) E66.3 [place] [address] [place] [id number] [address] [place] [phone] 02 Dec, 2017 Controlled substance agreeme nt signed Z79.899 [place] [address] [facility] [id number] [address] [place] [address] Nov, Type 2 diabetes mellitus wit h hyperglycemia E11.65 and Current non- adherence to medical treatment Z91.19 [place] [address] [place] [id number] [address] [place] [address] Nov, [place] [address] [place] [id number] [address] [place] [address] Nov, Chronic pain G89.29 [place] [address] [facility] [id number] [address] [place] [phone] Nov, [place] [address] [facility] [id number] [address] [place] [address] Nov, Hypothyroid E03.9 [place] [address] [facility] [id number] [address] [place] [address] Nov, Hypothyroid E03.9 [place] [address] [facility] [id number] [address] [place] [address] Nov, Pulmonary emphysema, unspeci fied emphysema type J43.9 and Irritable bowel syndrome with diarrhea K58.0 [place] [address] [facility] [id number] [address] [place] [address] Oct, [place] [address] [facility] [id number] [address] [place] [address] Oct, [place] [address] [facility] [id number] [address] [place] [address] Oct, [place] [address] [facility] [id number] [address] [place] [address] Oct, [place] [address] [facility] [id number] [address] [place] [address] Oct, Chronic pain G89.29 [place] [address] [place] [id number] [address] [place] [address] Oct, Diabetes mellitus E11.9 ; De pression F32.9 ; Mixed hyperlipidemia E78.2 ; Hypotension, unspecified hypotension type I95.9 ; Pulmonary emphysema, unspecified emphysema type J43.9 and Weight loss, unintentional R63.4 [place] [address] [place] [id number] [address] [place] [address] Oct, Chronic pain G89.29 [place] [address] [place] [id number] [address] [place] [address] Sep, Chronic pain G89.29 [place] [address] [place] [id number] [address] [place] [address] Sep, Hypothyroid E03.9 and Diabet es mellitus E11.9 [place] [address] [facility] [id number] [address] [place] [address] Aug, Type 2 diabetes mellitus wit h hyperglycemia E11.65 ; 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 ; Essential (primary) hypertension I10 ; Hypothyroid E03.9 ; Neuropathy G62.9 ; Chronic pain G89.29 ; Mixed hy perlipidemia E78.2 and Encounter for immunization Z23 [place] [address] [facility] [id number] [address] [place] [address] Aug, Chronic pain G89.29 [facility] [address] [facility] [id number] [address] [place] [address] Aug, Overactive bladder N32.81 ; Diabetes mellitus E11.9 and Chronic pain G89.29 [facility] [address] [facility] [id number] [address] [place] [address] Jul, [facility] [address] [facility] [id number] [address] [place] [address] Jun, [facility] [address] [place] [id number] [address] [place] [address] Jun, [facility] [address] [place] [id number] [place] [address] Jun, Hypothyroid E03.9 [facility] [address] [place] [id number] [place] [address] Jun, Diabetes mellitus E11.9 ; Hy pothyroid E03.9 ; Neuropathy G62.9 ; Chronic pain G89.29 and Neck mass R22.1 [facility] [address] [place] [id number] [address] [place] [address] Apr, [facility] [address] [place] [id number] [address] [place] [address] Apr, Acute cystitis without hemat uria N30.00 [facility] [address] [facility] [id number] [address] [place] [address] March, [facility] [address] [place] [id number] [address] [place] [address] March, [facility] [address] [place] [id number] [address] [place] [address] March, Near syncope R55 [facility] [address] [place] [id number] [address] [place] [phone] Feb, [facility] [address] [place] [id number] [address] [place] [address] Feb, Chronic pain G89.29 [facility] [address] [facility] [id number] [address] [place] [address] Feb, [facility] [address] [facility] [id number] [address] [place] [phone] Feb, [facility] [address] [facility] [id number] [address] [place] [address] Jan, Chronic pain G89.29 [facility] [address] [facility] [id number] [address] [place] [address] Jan, [facility] [address] [address] Jan, [facility] [address] [facility] [id number] [address] [place] [phone] Jan, Diabetes mellitus E11.9 ; Hy pothyroid E03.9 ; GERD (gastroesophageal reflux disease) K21.9 ; Insomnia G47.00 ; Functional diarrhea K59.1 ; Neuropathy G62.9 ; Depression F32.9 ; Chronic pain G89.29 ; Irritable bowel syndrome with diarrhea K58.0 ; Overactive bladder N32.81 ; Mixed hyperlipidemia E78.2 and Bronchitis J40 [facility] [address] [facility] [id number] [address] [place] [phone] Dec, [facility] [address] [facility] [id number] [address] [place] [address] Dec, [facility] [address] [facility] [id number] [address] [place] [phone] Dec, [facility] [address] [facility] [id number] [address] [place] [phone] Dec, [facility] [address] [facility] [id number] [address] [place] [address] Dec, Chronic pain G89.29 [facility] [address] [facility] [id number] [address] [place] [address] Dec, [facility] [address] [place] [id number] [address] [place] [phone] Dec, [facility] [address] [place] [id number] [place] [address] Dec, Type 2 diabetes mellitus wit h foot ulcer E11.621 [facility] [address] [place] [id number] [address] [place] [phone] 17 Dec, 2016 Type 2 diabetes mellitus wit h foot ulcer E11.621 [facility] [address] [place] [id number] [address] [place] [phone] Dec, HTN (hypertension) I10 ; Dep ression F32.9 ; Type 2 diabetes mellitus with foot ulcer E11.621 ; Functional diarrhea K59.1 ; Irritable bowel syndrome with diarrhea K58.0 ; Chronic pain G89.29 ; Insomnia G47.00 ; Overactive bladder N32.81 ; Mixed hyperlipidemia E78.2 ; Gastroesophageal reflux disease with esophagitis K21.0 and Acquired hypothyroidism E03.9 [place] [address] [address] Nov, [place] [address] [address] Oct, [place] [address] [address] Oct, [place] [address] [place] [id number] [address] [place] [address] Oct, [place] [address] [place] [id number] [place] [address] Sep, Functional diarrhea K59.1 ; HTN (hypertension) I10 ; Diabetes mellitus E11.9 ; Depression F32.9 ; Overactive bladder N32.81 ; Mixed hyperlipidemia E78.2 ; Gastroesophageal reflux disease without esophagitis K21.9 ; Chronic pain G89.29 ; Insomnia G47.00 and Acquired hypothyroidism E03.9 [place] [address] [address] 04 Sep, 2016 [place] [address] [address] 11 Aug, 2016 Encounter for immunization Z 23 [place] [address] [address] 06 Aug, 2016 [place] [address] [address] 09 Jul, 2016 [place] [address] [address] Jun, Type 2 diabetes mellitus wit hout complications E11.9 ; HTN (hypertension) I10 ; Hypothyroid E03.9 ; Neuropathy G62.9 ; Depression F32.9 ; Chronic pain G89.29 ; GERD (gastroesophageal reflux disease) K21.9 ; Insomnia G47.00 ; Overactive bladder N32.81 ; Mixed hyperlipidemia E78.2 ; Diarrhea of infectious origin A09 and Environmental allergies Z91.09 [place] [address] [address] Apr, [place] [address] [address] March, Hypothyroidism, unspecified E03.9 and Mixed hyperlipidemia E78.2 [place] [address] [address] March, Diabetes mellitus E11.9 ; HT N (hypertension) I10 ; Hypothyroid E03.9 ; Depression F32.9 ; Overactive bladder N32.81 ; Other chronic pain G89.29 ; Lumbago with sciatica, unspecified side M54.40 ; Environmental allergies Z91.09 and Gastroesophageal reflux disease, esophagitis presence not specified K21.9 [place] [address] [address] March, [place] [address] [address] Jan, HTN (hypertension) I10 ; Hyp othyroid E03.9 ; Neuropathy G62.9 ; Diabetes mellitus E11.9 ; Chronic pain G89.29 ; GERD (gastroesophageal reflux disease) K21.9 ; Overactive bladder N32.81 and Depression F32.9 [facility] [address] [facility] [id number] [address] [place] [address] 12 Dec, 2015 Ear pain, left H92.02 ; HTN (hypertension) I10 ; Hypothyroid E03.9 ; Neuropathy G62.9 ; Diabetes mellitus E11.9 ; Depression F32.9 ; GERD (gastroesophageal reflux disease) K21.9 ; Insomnia G47.00 and Overactive bladder N32.81 [place] [address] [place] [address] Nov, Overactive bladder N32.81 an d Chronic pain G89.29 [place] [address] [place] [id number] [address] [place] [address] Nov, Kidney failure N19 [place] [address] [place] [id number] [address] [place] [address] Nov, [place] [address] [place] [address] Nov, [place] [address] [place] [id number] [address] [place] [address] Nov, Diabetes mellitus E11.9 ; De pression F32.9 ; Chronic pain G89.29 ; GERD (gastroesophageal reflux disease) K21.9 ; Insomnia G47.00 ; HTN (hypertension) I10 ; Hypothyroid E03.9 ; COPD (chronic obstructive pulmonary disease) J44.9 ; Bladder incontinence R32 and Incontinence R32 [place] [address] [place] [id number] [address] [place] [address] Sep, Type 2 diabetes mellitus wit h foot ulcer E11.621 and Chromosomal abnormality, 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 [facility] [address] [place] [id number] [address] [place] [phone] Sep, [place] [address] [address] Aug, [place] [address] [address] Aug, [place] [address] [address] Aug, HTN (hypertension) I10 ; Enc ounter for immunization Z23 ; Hypothyroid E03.9 ; Neuropathy G62.9 ; Diabetes mellitus E11.9 ; Depression F32.9 ; Chronic pain G89.29 ; GERD (gastroesophageal reflux disease) K21.9 ; Insomnia G47.00 and COPD (chronic obstructive pulmonary disease) J44.[address] [address] Jun, [address] [address] Jun, [address] [address] May, Essential hypertension, ivis gn 401.1 ; Unspecified hypothyroidism 244.9 ; Insomnia, unspecified 780.52 ; Shortness of breath 786.05 ; Depression 311 ; COPD (chronic obstructive pulmonary disease) 496 ; GERD (gastroesophageal reflux disease) 530.81 and Diabetes 1.5, 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 [address] May, [address] [address] May, [place] [address] [address] May, Shortness of breath 786.05 ; Essential hypertension, benign 401.1 ; Diabetes mellitus 250.00 ; Hyperlipidemia 272.4 ; Hypothyroid 244.9 ; Insomnia 780.52 and Cough 786.[address] [address] Apr, [place] [address] [id number] [address] [place] [address] March, Shortness of breath 786.05 ; Nausea with vomiting 787.01 ; Essential hypertension, benign 401.1 ; Diabetes mellitus 250.00 ; Hyperlipidemia 272.4 and Hypothyroid 244.9 [facility] [address] [id number] [address] [place] [address] Feb, [facility] [address] [id number] [address] [place] [address] Feb, [facility] [address] [id number] [address] [place] [address] Jan, [facility] [address] [id number] [address] [place] [address] Jan, [facility] [address] [facility] [id number] [address] [place] [phone] Jan, [facility] [address] [id number] [address] [place] [phone] Jan, [facility] [address] [facility] [id number] [address] [place] [address] Jan, [facility] [address] [facility] [id number] [address] [place] [address] Jan, [facility] [address] [facility] [id number] [address] [place] [address] Jan, [facility] [address] [id number] [address] [place] [phone] Jan, [facility] [address] [id number] [address] [place] [address] Jan, [facility] [address] [id number] [address] [place] [phone] Jan, [facility] [address] [facility] [id number] [address] [place] [phone] Dec, [facility] [address] [id number] [address] [place] [phone] Dec, 2014 [facility] [address] [id number] [address] [place] [address], [place] [address] Dec, 2014 [facility] [address] [id number] [address] [place] [address], [place] [address] Dec, 2014 [facility] [address] [id number] [address] [place] [address], [place] [address] Dec, 2014 [facility] [address] [id number] [address] [place] [address], [place] [address] Dec, 2014 [facility] [address] [id number] [address] [place] [address], [place] [address] Dec, 2014 [facility] [address] [id number] [address] [place] [address], [place] [address] Dec, 2014 [facility] [address] [id number] [address] [place] [address], [place] [address] Dec, 2014 [facility] [address] [id number] [address] [place] [address], [place] [address] Dec, 2014 [facility] [address] [id number] [address] [place] [address], [place] [address] Oct, [facility] [address] [id number] [address] [place] [address], [place] [address] Oct, [facility] [address] [id number] [address] [place] [address], [place] [address] Oct, [facility] [address] [id number] [address] [place] [address], [place] [address] Oct, [facility] [address] [id number] [address] [place] [address], [place] [address] Oct, [facility] [address] [id number] [address] [place] [address], [place] [address] Oct, [facility] [address] [id number] [address] [place] [address], [place] [address] Oct, [facility] [address] [id number] [address] [place] [address], [place] [address] 05 Oct, 2014 [facility] [address] [id number] [address] [place] [address], [place] [address] Oct, [facility] [address] [id number] [address] [place] [address], [place] [address] Oct, [facility] [address] [id number] [address] [place] [address], [place] [address] Oct, [facility] [address] [id number] [address] [place] [address], [place] [address] Oct, [facility] [address] [id number] [address] [place] [address], [place] [address] Oct, [facility] [address] [id number] [address] [place] [address], [place] [address] Oct, [facility] [address] [id number] [address] [place] [address], [place] [address] Sep, [facility] [address] [id number] [address] [place] [address], [place] [address] Sep, [facility] [address] [id number] [address] [place] [address], [place] [address] Sep, [facility] [address] [id number] [address] [place] [address], [place] [address] Sep, [facility] [address] [id number] [address] [place] [address], [place] [address] Sep, [facility] [address] [id number] [address] [place] [address], [place] [address] Sep, [facility] [address] [id number] [address] [place] [address], [place] [address] Sep, [facility] [address] [id number] [address] [place] [address], [place] [address] Sep, [facility] [address] [id number] [address] [place] [address], [place] [address] Sep, [facility] [address] [id number] [address] [place] [address], [place] [address] Aug, [facility] [address] [id number] [address] [place] [address], [place] [address] 20 Aug, 2014 [facility] [address] [id number] [address] [place] [address], [place] [address] 17 Aug, 2014 [facility] [address] [id number] [address] [place] [address], [place] [address] 17 Aug, 2014 [facility] [address] [id number] [address] [place] [address], [place] [address] 16 Aug, 2014 [facility] [address] [id number] [address] [place] [address], [place] [address] Aug, [facility] [address] [id number] [address] [place] [address], [place] [address] Aug, [facility] [address] [id number] [address] [place] [address], [place] [address] Aug, [facility] [address] [id number] [address] [place] [address], [place] [address] Aug, [facility] [address] [id number] [address] [place] [address], [place] [address] 29 Jul, 2013 [facility] [address] [id number] [address] [place] [address], [place] [address] 29 Sep, 2013 [facility] [address] [id number] [address] [place] [address], [place] [address] 25 Jul, 2013 [facility] [address] [id number] [address] [place] [address], [place] [address] 25 Jul, 2013 [facility] [address] [id number] [place] [address], [place] [address] 25 Jul, 2013 [facility] [address] [id number] [address] [place] [address], [place] [address] 25 Jul, 2013 [facility] [address] [id number] [facility] [place] [address] Jul, [facility] [address] [id number] [facility] [place] [address] Jul, [facility] [address] [id number] [facility] [place] [address] Jul, [facility] [address] [id number] [facility] [place] [address] Jul, [facility] [address] [id number] [facility] [place] [address] Jun, [facility] [address] [id number] [address] [place] [address], [place] [address] Jun, [facility] [address] [id number] [address] [place] [address], [place] [address] Jun, [facility] [address] [id number] [address] [place] [address], [place] [address] Jun, [facility] [address] [id number] [address] [place] [address], [place] [address] Jun, [facility] [address] [id number] [address] [place] [address], [place] [address] Jun, [facility] [address] [id number] [address] [place] [address], [place] [address] Jun, [facility] [address] [id number] [address] [place] [address], [place] [address] Jun, [facility] [address] [id number] [address] [place] [address], [place] [address] Jun, [facility] [address] [id number] [address] [place] [address], [place] [address] Jun, [facility] [address] [id number] [address] [place] [address], [place] [address] Jun, [facility] [address] [id number] [address] [place] [address], [place] [address] Jun, [facility] [address] [id number] [facility] [place] [address] May, [facility] [address] [id number] [address] [place] [address], [place] [address] May, [facility] [address] [id number] [address] [place] [address], [place] [address] May, [facility] [address] [id number] [address] [place] [address], [place] [address] May, [facility] [address] [id number] [address] [place] [address], [place] [address] May, [facility] [address] [id number] [address] [place] [address], [place] [address] May, [facility] [address] [id number] [address] [place] [address], [place] [address] March, [facility] [address] [id number] [address] [place] [address], [place] [address] March, [facility] [address] [id number] [address] [place] [address], [place] [address] March, [facility] [address] [id number] [address] [place] [address], [place] [address] March, [facility] [address] [id number] [address] [place] [address], [place] [address] March, [facility] [address] [id number] [address] [place] [address], [place] [address] March, [facility] [address] [id number] [address] [place] [address], [place] [address] Feb, [facility] [address] [id number] [address] [place] [address], [place] [address] Feb, [facility] [address] [id number] [address] [place] [address], [place] [address] Feb, [facility] [address] [id number] [facility] [place] [address] Feb, [facility] [address] [id number] [address] [place] [address], [place] [address] Jan, [facility] [address] [id number] [facility] [place] [address] Jan, [facility] [address] [id number] [address] [place] [address], [place] [address] Jan, [facility] [address] [id number] [address] [place] [address], [place] [address] Jan, [facility] [address] [id number] [address] [place] [address], [place] [address] Jan, [facility] [address] [id number] [address] [place] [address], [place] [address] Jan, [facility] [address] [id number] [address] [place] [address], [place] [address] Jan, [facility] [address] [id number] [address] [place] [address], [place] [address] Jan, [facility] [address] [id number] [address] [place] [address], [place] [address] Jan, [facility] [address] [id number] [address] [place] [address], [place] [address] Jan, [facility] [address] [id number] [address] [place] [address], [place] [address] Jan, [facility] [address] [id number] [address] [place] [address], [place] [address] Jan, [facility] [address] [id number] [address] [place] [address], [place] [address] Dec, [facility] [address] [id number] [address] [place] [address], [place] [address] Dec, [facility] [address] [id number] [address] [place] [address], [place] [address] Dec, [facility] [address] [id number] [address] [place] [address], [place] [address] Dec, [facility] [address] [id number] [address] [place] [address], [place] [address] Dec, [facility] [address] [id number] [address] [place] [address], [place] [address] Dec, [facility] [address] [id number] [address] [place] [address], [place] [address] Nov, [facility] [address] [id number] [address] [place] [address], [place] [address] Nov, [facility] [address] [id number] [address] [place] [address], [place] [address] Oct, [facility] [address] [id number] [address] [place] [address], [place] [address] Oct, [facility] [address] [id number] [address] [place] [address], [place] [address] Oct, [facility] [address] [id number] [address] [place] [address], [place] [address] Oct, [facility] [address] [id number] [address] [place] [address], [place] [address] Oct, [facility] [address] [id number] [address] [place] [address], [place] [address] Oct, [facility] [address] [id number] [address] [place] [address] Sep, [facility] [address] [id number] [address] [place] [address], [place] [address] Sep, [facility] [address] [id number] [address] [place] [address], [place] [address] Sep, [facility] [address] [id number] [address] [place] [address], [place] [address] Sep, [facility] [address] [id number] [address] [place] [address], [place] [address] Aug, [facility] [address] [id number] [address] [place] [address], [place] [address] Aug, [facility] [address] [id number] [address] [place] [address], [place] [address] Aug, [facility] [address] [id number] [address] [place] [address], [place] [address] 17 Jul, 2013 [facility] [address] [id number] [address] [place] [address], [place] [address] 14 Jul, 2013 [facility] [address] [id number] [address] [place] [address], [place] [address] Jul, [facility] [address] [id number] [address] [place] [address], [place] [address] Jun, [facility] [address] [id number] [address] [place] [address], [place] [address] Jun, [facility] [address] [id number] [address] [place] [address], [place] [address] Jun, [facility] [address] [id number] [address] [place] [address], [place] [address] Apr, [facility] [address] [id number] [address] [place] [address], [place] [address] Apr, [facility] [address] [id number] [address] [place] [address], [place] [address] March, [facility] [address] [id number] [address] [place] [address], [place] [address] March, [facility] [address] [id number] [address] [place] [address], [place] [address] March, [facility] [address] [id number] [address] [place] [address], [place] [address] March, [facility] [address] [id number] [address] [place] [address], [place] [address] Feb, [facility] [address] [id number] [address] [place] [address], [place] [address] Jan, [facility] [address] [id number] [address] [place] [address], [place] [address] 13 Dec, 2012 [facility] [address] [id number] [address] [place] [address], [place] [address] 08 Dec, 2012 [facility] [address] [id number] [address] [place] [address], [place] [address] 07 Dec, 2012 [facility] [address] [id number] [address] [place] [address], [place] [address] Nov, [facility] [address] [id number] [address] [place] [address], [place] [address] Oct, [facility] [address] [id number] [address] [place] [address], [place] [address] Oct, [facility] [address] [id number] [address] [place] [address], [place] [address] Sep, [facility] [address] [id number] [address] [place] [address], [place] [address] Sep, [facility] [address] [id number] [address] [place] [address], [place] [address] Sep, [facility] [address] [id number] [address] [place] [address], [place] [address] Sep, [facility] [address] [id number] [address] [place] [address] Sep, [facility] [address] [id number] [address] [place] [address], [place] [address] Sep, [facility] [address] [id number] [address] [place] [address], [place] [address] Sep, [facility] [address] [id number] [address] [place] [address], [place] [address] 16 Aug, 2012 [facility] [address] [id number] [address] [place] [address] 16 Aug, 2012 [facility] [address] [id number] [address] [place] [address], [place] [address] 10 Aug, 2012 [facility] [address] [id number] [address] [place] [address], [place] [address] 10 Aug, 2012 [facility] [address] [id number] [address] [place] [address], [place] [address] 08 Aug, 2012 [facility] [address] [id number] [address] [place] [address], [place] [address] 08 Aug, 2012 [facility] [address] [id number] [address] [place] [address], [place] [address] Aug, [facility] [address] [id number] [address] [place] [address], [place] [address] Aug, [facility] [address] [id number] [address] [place] [address], [place] [address] Jul, [facility] [address] [id number] [address] [place] [address], [place] [address] Jul, [facility] [address] [id number] [address] [place] [address], [place] [address] Jun, [facility] [address] [id number] [address] [place] [address], [place] [address] May, [facility] [address] [id number] [address] [place] [address], [place] [address] Apr, [facility] [address] [id number] [address] [place] [address], [place] [address] Apr, [facility] [address] [id number] [address] [place] [address], [place] [address] Apr, [facility] [address] [id number] [address] [place] [address], [place] [address] March, [facility] [address] [id number] [address] [place] [address], [place] [address] March, [facility] [address] [id number] [address] [place] [address], [place] [address] March, [facility] [address] [id number] [address] [place] [address], [place] [address] March, [facility] [address] [id number] [address] [place] [address], [place] [address] March, [facility] [address] [id number] [address] [place] [address], [place] [address] March, [facility] [address] [id number] [address] [place] [address], [place] [address] March, [facility] [address] [id number] [address] [place] [address], [place] [address] Jan, [facility] [address] [id number] [address] [place] [address], [place] [address] Jan, [facility] [address] [id number] [address] [place] [address], [place] [address] Jan, [facility] [address] [id number] [address] [place] [address], [place] [address] Jan, [facility] [address] [id number] [address] [place] [address], [place] [address] Jan, [facility] [address] [id number] [address] [place] [address], [place] [address] Dec, [facility] [address] [id number] [address] [place] [address], [place] [address] Dec, [facility] [address] [id number] [address] [place] [address], [place] [address] Nov, [facility] [address] [id number] [address] [place] [address], [place] [address] Nov, [facility] [address] [id number] [address] [place] [address], [place] [address] Nov, [facility] [address] [id number] [address] [place] [address] [address] 05 Nov, 2011 [facility] [address] [id number] [address] [place] [address], [place] [address] 21 Oct, 2011 [facility] [address] [id number] [address] [place] [address], [place] [address] 06 Oct, 2011 [facility] [address] [id number] [address] [place] [address], [place] [address] 14 Sep, 2011 [facility] [address] [id number] [address] [place] [address], [place] [address] 10 Sep, 2011 [facility] [address] [id number] [address] [place] [address], [place] [address] 10 Sep, 2011 [facility] [address] [id number] [address] [place] [address], [place] [address] 11 May, 2011 [facility] [address] [id number] [address] [place] [address], [place] [address] 20 Nov, 2010 [facility] [address] [id number] [address] [place] [address], [place] [address] 29 Oct, 2010 [facility] [address] [id number] [address] [place] [address], [place] [address] 14 Oct, 2010 [facility] [address] [id number] [address] [place] [address], [place] [address] 08 Oct, 2010 [facility] [address] [id number] [address] [place] [address], [place] [address] 15 Sep, 2010 [facility] [address] [id number] [address] [place] [address], [place] [address] Sep, [facility] [address] [id number] [address] [place] [address], [place] [address] Aug, [facility] [address] [id number] [address] [place] [address], [place] [address] March, [facility] [address] [id number] [address] [place] [address], [place] [address] 17 Oct, 2009 [facility] [address] [id number] [address] [place] [address] Oct, [facility] [address] [id number] [address] [place] [address] Oct, [facility] [address] [id number] [address] [place] [address] Oct, [facility] [address] [id number] [address] [place] [address] Sep, [facility] [address] [id number] [address] [place] [address] Sep, [facility] [address] [facility] [id number] [address] [place] [address] Sep, [facility] [address] [facility] [id number] [address] [place] [address] Aug, [facility] [address] [facility] [id number] [address] [place] [address] Aug, [facility] [address] [id number] [address] [place] [address] Aug, [facility] [address] [facility] [id number] [address] [place] [address] Jan, IMMUNIZATIONS No Known Immunizations SOCIAL HISTORY [...]
--- OUTSIDE RECORDS SUMMARY | 2020-06-13 16:36 | XMS REPORT ---
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 Name Role Phone PARKERSHAYLEE MckeonELE Unavailable PROBLEMS Type Condition ICD9-CM Code TIW43-FL Code Onset Dates Condition S tatus SNOMED Code Problem Gastroesophageal reflux disease with esophagitis K 21.0 Active 680651484 Problem USP current use of insulin Z79.4 Active 247171304 Problem Irritable bowel syndrome with diarrhea K58.0 Active 979125737 Problem Diabetes mellitus E11.9 Active 73 476825 Problem Recurrent major depressive disorder, in partial remission F33.41 Active 93517566 Problem Essential (primary) hypertension I10 Active 47717090 Problem Type 2 diabetes mellitus with hyperglycemia E11.65 Active 41680967 Problem Current non-adherence to medical treatment Z91.19 Active 9609991 Problem Pulmonary emphysema, unspecified emphysema type J4 3.9 Active 02243634 Problem Neuropathy G62.9 Active 561353701 Problem Hypothyroid E03.9 Active 08941676 Problem Thrombocytosis D47.3 Active 50188 09 Problem Overactive bladder N32.81 Active 2 98229727 Problem Chronic pain G89.29 Active 5700335 1 Problem Mixed hyperlipidemia E78.2 Active [id number] ALLERGIES No Information ENCOUNTERS Encounter Location Date Diagnosis [facility] [address] [facility] [id number] [address] [place] [address] March, [facility] [address] [facility] [id number] [address] [place] [address] March, Hypothyroid E03.9 [facility] [address] [facility] [id number] [address] [place] [address] March, Diabetes mellitus E11.9 and Hypothyroid E03.9 [facility] [address] [facility] [id number] [address] [place] [address] March, Diabetes mellitus E11.9 [place] [address] [place] [id number] [address] [place] [address] March, Hypothyroid E03.9 and Elevat ed liver enzymes R74.8 [place] [address] [place] [id number] [address] [place] [address] March, Type 2 diabetes mellitus wit h [...] major depressive disorder, in partial remission F33.41 [place] [address] [place] [id number] [address] [place] [address] Feb, Chronic pain G89.29 [place] [address] [address] Feb, Type 2 diabetes mellitus wit h hyperglycemia E11.65 and Skin lesion of scalp L98.9 [place] [id number] [address] [place] [id number] Feb, [place] [address] [place] [id number] [address] [place] [address] Jan, Type 2 diabetes mellitus wit h [...] and Irritable bowel syndrome with diarrhea K58.0 [place] [address] [place] [id number] [address] [place] [address] Jan, [place] [address] [place] [id number] [address] [place] [address] Jan, Controlled substance agreeme nt signed Z79.899 [place] [address] [facility] [id number] [address] [place] [address] 08 Dec, 2017 Type 2 diabetes mellitus [...] treatment Z91.19 and Overweight (BMI 25.0-29.9) E66.3 [place] [address] [place] [id number] [address] [place] [id number] 02 Dec, 2017 Controlled substance agreeme nt signed Z79.899 [place] [address] [facility] [id number] [address] [place] [address] Nov, Type 2 diabetes mellitus wit h hyperglycemia E11.65 and Current non- adherence to medical treatment Z91.19 [place] [address] [place] [id number] [address] [place] [address] Nov, [place] [address] [place] [id number] [address] [place] [id number] Nov, Chronic pain G89.29 [place] [address] [facility] [id number] [address] [place] [address] Nov, [place] [address] [facility] [id number] [address] [place] [address] Nov, Hypothyroid E03.9 [place] [address] [facility] [id number] [address] [place] [phone] Nov, Hypothyroid E03.9 [place] [address] [facility] [id number] [address] [place] [id number] Nov, Pulmonary emphysema, unspeci fied emphysema type J43.9 and Irritable bowel syndrome with diarrhea K58.0 [place] [address] [facility] [id number] [address] [place] [address] Oct, [place] [address] [facility] [id number] [address] [place] [address] Oct, [place] [address] [facility] [id number] [address] [place] [address] Oct, [place] [address] [facility] [id number] [address] [place] [address] Oct, [place] [address] [facility] [id number] [address] [place] [address] Oct, Chronic pain G89.29 [place] [address] [place] [id number] [address] [place] [address] Oct, Diabetes mellitus E11.9 ; De pression F32.9 ; Mixed hyperlipidemia E78.2 ; Hypotension, unspecified hypotension type I95.9 ; Pulmonary emphysema, unspecified emphysema type J43.9 and Weight loss, unintentional R63.4 [place] [address] [place] [id number] [address] [place] [address] Oct, Chronic pain G89.29 [place] [address] [place] [id number] [address] [place] [address] Sep, Chronic pain G89.29 [place] [address] [place] [id number] [address] [place] [address] Sep, Hypothyroid E03.9 and Diabet es mellitus E11.9 [place] [address] [facility] [id number] [address] [place] [address] Aug, Type 2 diabetes mellitus wit h hyperglycemia E11.65 ; 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 ; Essential (primary) hypertension I10 ; Hypothyroid E03.9 ; Neuropathy G62.9 ; Chronic pain G89.29 ; Mixed hy perlipidemia E78.2 and Encounter for immunization Z23 [place] [address] [facility] [id number] [address] [place] [address] Aug, Chronic pain G89.29 [facility] [address] [facility] [id number] [address] [place] [address] Aug, Overactive bladder N32.81 ; Diabetes mellitus E11.9 and Chronic pain G89.29 [facility] [address] [facility] [id number] [address] [place] [address] Jul, [facility] [address] [facility] [id number] [address] [place] [address] Jun, [facility] [address] [place] [id number] [address] [place] [id number] Jun, [facility] [address] [place] [id number] [place] [phone] Jun, Hypothyroid E03.9 [facility] [address] [place] [id number] [place] [address] Jun, Diabetes mellitus E11.9 ; Hy pothyroid E03.9 ; Neuropathy G62.9 ; Chronic pain G89.29 and Neck mass R22.1 [facility] [address] [place] [id number] [address] [place] [id number] Apr, [facility] [address] [place] [id number] [address] [place] [address] Apr, Acute cystitis without hemat uria N30.00 [facility] [address] [facility] [id number] [address] [place] [address] March, [facility] [address] [place] [id number] [address] [place] [address] March, [facility] [address] [place] [id number] [address] [place] [address] March, Near syncope R55 [facility] [address] [place] [id number] [address] [place] [phone] Feb, [facility] [address] [place] [id number] [address] [place] [id number] Feb, Chronic pain G89.29 [facility] [address] [facility] [id number] [address] [place] [address] Feb, [facility] [address] [facility] [id number] [address] [place] [phone] Feb, [facility] [address] [facility] [id number] [address] [place] [address] Jan, Chronic pain G89.29 [facility] [address] [facility] [id number] [address] [place] [id number] Jan, [facility] [address] [id number] Jan, [facility] [address] [facility] [id number] [address] [place] [address] Jan, Diabetes mellitus E11.9 ; Hy pothyroid E03.9 ; GERD (gastroesophageal reflux disease) K21.9 ; Insomnia G47.00 ; Functional diarrhea K59.1 ; Neuropathy G62.9 ; Depression F32.9 ; Chronic pain G89.29 ; Irritable bowel syndrome with diarrhea K58.0 ; Overactive bladder N32.81 ; Mixed hyperlipidemia E78.2 and Bronchitis J40 [facility] [address] [facility] [id number] [address] [place] [address] Dec, [facility] [address] [facility] [id number] [address] [place] [id number] Dec, [facility] [address] [facility] [id number] [address] [place] [id number] Dec, [facility] [address] [facility] [id number] [address] [place] [phone] Dec, [facility] [address] [facility] [id number] [address] [place] [address] Dec, Chronic pain G89.29 [facility] [address] [facility] [id number] [address] [place] [address] Dec, [facility] [address] [place] [id number] [address] [place] [address] Dec, [facility] [address] [place] [id number] [place] [address] Dec, Type 2 diabetes mellitus wit h foot ulcer E11.621 [facility] [address] [place] [id number] [address] [place] [id number] 17 Dec, 2016 Type 2 diabetes mellitus wit h foot ulcer E11.621 [facility] [address] [place] [id number] [address] [place] [address] Dec, HTN (hypertension) I10 ; Dep ression F32.9 ; Type 2 diabetes mellitus with foot ulcer E11.621 ; Functional diarrhea K59.1 ; Irritable bowel syndrome with diarrhea K58.0 ; Chronic pain G89.29 ; Insomnia G47.00 ; Overactive bladder N32.81 ; Mixed hyperlipidemia E78.2 ; Gastroesophageal reflux disease with esophagitis K21.0 and Acquired hypothyroidism E03.9 [place] [address] [address] Nov, [place] [address] [address] Oct, [place] [address] [address] Oct, [place] [address] [place] [id number] [address] [place] [address] Oct, [place] [address] [place] [id number] [address] [place] [address] Sep, Functional diarrhea K59.1 ; HTN (hypertension) I10 ; Diabetes mellitus E11.9 ; Depression F32.9 ; Overactive bladder N32.81 ; Mixed hyperlipidemia E78.2 ; Gastroesophageal reflux disease without esophagitis K21.9 ; Chronic pain G89.29 ; Insomnia G47.00 and Acquired hypothyroidism E03.9 [place] [address] [address] 04 Sep, 2016 [place] [address] [address] 11 Aug, 2016 Encounter for immunization Z 23 [place] [address] [address] 06 Aug, 2016 [place] [address] [address] 09 Jul, 2016 [place] [address] [address] Jun, Type 2 diabetes mellitus wit hout complications E11.9 ; HTN (hypertension) I10 ; Hypothyroid E03.9 ; Neuropathy G62.9 ; Depression F32.9 ; Chronic pain G89.29 ; GERD (gastroesophageal reflux disease) K21.9 ; Insomnia G47.00 ; Overactive bladder N32.81 ; Mixed hyperlipidemia E78.2 ; Diarrhea of infectious origin A09 and Environmental allergies Z91.09 [place] [address] [address] Apr, [place] [address] [address] March, Hypothyroidism, unspecified E03.9 and Mixed hyperlipidemia E78.2 [place] [address] [address] March, Diabetes mellitus E11.9 ; HT N (hypertension) I10 ; Hypothyroid E03.9 ; Depression F32.9 ; Overactive bladder N32.81 ; Other chronic pain G89.29 ; Lumbago with sciatica, unspecified side M54.40 ; Environmental allergies Z91.09 and Gastroesophageal reflux disease, esophagitis presence not specified K21.9 [place] [address] [address] March, [place] [address] [address] Jan, HTN (hypertension) I10 ; Hyp othyroid E03.9 ; Neuropathy G62.9 ; Diabetes mellitus E11.9 ; Chronic pain G89.29 ; GERD (gastroesophageal reflux disease) K21.9 ; Overactive bladder N32.81 and Depression F32.9 [facility] [address] [facility] [id number] [address] [place] [address] 12 Dec, 2015 Ear pain, left H92.02 ; HTN (hypertension) I10 ; Hypothyroid E03.9 ; Neuropathy G62.9 ; Diabetes mellitus E11.9 ; Depression F32.9 ; GERD (gastroesophageal reflux disease) K21.9 ; Insomnia G47.00 and Overactive bladder N32.81 [place] [id number] [place] [address] Nov, Overactive bladder N32.81 an d Chronic pain G89.29 [place] [address] [place] [id number] [address] [place] [address] Nov, Kidney failure N19 [place] [address] [place] [id number] [address] [place] [phone] Nov, [place] [address] [place] [address] Nov, [place] [address] [place] [id number] [address] [place] [address] Nov, Diabetes mellitus E11.9 ; De pression F32.9 ; Chronic pain G89.29 ; GERD (gastroesophageal reflux disease) K21.9 ; Insomnia G47.00 ; HTN (hypertension) I10 ; Hypothyroid E03.9 ; COPD (chronic obstructive pulmonary disease) J44.9 ; Bladder incontinence R32 and Incontinence R32 [place] [address] [place] [id number] [address] [place] [address] Sep, Type 2 diabetes mellitus wit h foot ulcer E11.621 and Chromosomal abnormality, 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 [facility] [address] [place] [id number] [address] [place] [address] Sep, [place] [address] [address] Aug, [place] [address] [address] Aug, [place] [address] [address] Aug, HTN (hypertension) I10 ; Enc ounter for immunization Z23 ; Hypothyroid E03.9 ; Neuropathy G62.9 ; Diabetes mellitus E11.9 ; Depression F32.9 ; Chronic pain G89.29 ; GERD (gastroesophageal reflux disease) K21.9 ; Insomnia G47.00 and COPD (chronic obstructive pulmonary disease) J44.[address] [address] Jun, [address] [address] Jun, [address] [address] May, Essential hypertension, ivis gn 401.1 ; Unspecified hypothyroidism 244.9 ; Insomnia, unspecified 780.52 ; Shortness of breath 786.05 ; Depression 311 ; COPD (chronic obstructive pulmonary disease) 496 ; GERD (gastroesophageal reflux disease) 530.81 and Diabetes 1.5, 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 [address] May, [address] [address] May, [place] [address] [address] May, Shortness of breath 786.05 ; Essential hypertension, benign 401.1 ; Diabetes mellitus 250.00 ; Hyperlipidemia 272.4 ; Hypothyroid 244.9 ; Insomnia 780.52 and Cough 786.[address] [address] Apr, [place] [address] [id number] [address] [place] [address] March, Shortness of breath 786.05 ; Nausea with vomiting 787.01 ; Essential hypertension, benign 401.1 ; Diabetes mellitus 250.00 ; Hyperlipidemia 272.4 and Hypothyroid 244.9 [facility] [address] [id number] [address] [place] [phone] Feb, [facility] [address] [id number] [address] [place] [id number] Feb, [facility] [address] [id number] [address] [place] [address] Jan, [facility] [address] [id number] [address] [place] [address] Jan, [facility] [address] [facility] [id number] [address] [place] [address] Jan, [facility] [address] [id number] [address] [place] [id number] Jan, [facility] [address] [facility] [id number] [address] [place] [address] Jan, [facility] [address] [facility] [id number] [address] [place] [address] Jan, [facility] [address] [facility] [id number] [address] [place] [address] Jan, [facility] [address] [id number] [address] [place] [address] Jan, [facility] [address] [id number] [address] [place] [address] Jan, [facility] [address] [id number] [address] [place] [id number] Jan, [facility] [address] [facility] [id number] [address] [place] [phone] Dec, [facility] [address] [id number] [address] [place] [id number] Dec, 2014 [facility] [address] [id number] [address] [place] [address], [place] [address] Dec, 2014 [facility] [address] [id number] [address] [place] [address], [place] [address] Dec, 2014 [facility] [address] [id number] [address] [place] [address], [place] [address] Dec, 2014 [facility] [address] [id number] [address] [place] [address], [place] [address] Dec, 2014 [facility] [address] [id number] [address] [place] [address], [place] [address] Dec, 2014 [facility] [address] [id number] [address] [place] [address], [place] [address] Dec, 2014 [facility] [address] [id number] [address] [place] [address], [place] [address] Dec, 2014 [facility] [address] [id number] [address] [place] [address], [place] [address] Dec, 2014 [facility] [address] [id number] [address] [place] [address], [place] [address] Oct, [facility] [address] [id number] [address] [place] [address], [place] [address] Oct, [facility] [address] [id number] [address] [place] [address], [place] [address] Oct, [facility] [address] [id number] [address] [place] [address], [place] [address] Oct, [facility] [address] [id number] [address] [place] [address], [place] [address] Oct, [facility] [address] [id number] [address] [place] [address], [place] [address] Oct, [facility] [address] [id number] [address] [place] [address], [place] [address] Oct, [facility] [address] [id number] [address] [place] [address], [place] [address] 05 Oct, 2014 [facility] [address] [id number] [address] [place] [address], [place] [address] Oct, [facility] [address] [id number] [address] [place] [address], [place] [address] Oct, [facility] [address] [id number] [address] [place] [address], [place] [address] Oct, [facility] [address] [id number] [address] [place] [address], [place] [address] Oct, [facility] [address] [id number] [address] [place] [address], [place] [address] Oct, [facility] [address] [id number] [address] [place] [address], [place] [address] Oct, [facility] [address] [id number] [address] [place] [address], [place] [address] Sep, [facility] [address] [id number] [address] [place] [address], [place] [address] Sep, [facility] [address] [id number] [address] [place] [address], [place] [address] Sep, [facility] [address] [id number] [address] [place] [address], [place] [address] Sep, [facility] [address] [id number] [address] [place] [address], [place] [address] Sep, [facility] [address] [id number] [address] [place] [address], [place] [address] Sep, [facility] [address] [id number] [address] [place] [address], [place] [address] Sep, [facility] [address] [id number] [address] [place] [address], [place] [address] Sep, [facility] [address] [id number] [address] [place] [address], [place] [address] Sep, [facility] [address] [id number] [address] [place] [address], [place] [address] Aug, [facility] [address] [id number] [address] [place] [id number], [place] [address] 20 Aug, 2014 [facility] [address] [id number] [address] [place] [id number], [place] [address] 17 Aug, 2014 [facility] [address] [id number] [address] [place] [id number], [place] [address] 17 Aug, 2014 [facility] [address] [id number] [address] [place] [id number], [place] [address] 16 Aug, 2014 [facility] [address] [id number] [address] [place] [id number], [place] [address] Aug, [facility] [address] [id number] [address] [place] [id number], [place] [address] Aug, [facility] [address] [id number] [address] [place] [id number], [place] [address] Aug, [facility] [address] [id number] [address] [place] [id number], [place] [address] Aug, [facility] [address] [id number] [address] [place] [id number], [place] [address] 29 Jul, 2013 [facility] [address] [id number] [address] [place] [id number], [place] [address] 29 Sep, 2013 [facility] [address] [id number] [address] [place] [id number], [place] [address] 25 Jul, 2013 [facility] [address] [id number] [address] [place] [id number], [place] [address] 25 Jul, 2013 [facility] [address] [id number] [address] [place] [id number], [place] [address] 25 Jul, 2013 [facility] [address] [id number] [address] [place] [id number], [place] [address] 25 Jul, 2013 [facility] [address] [id number] [facility] [place] [address] Jul, [facility] [address] [id number] [facility] [place] [address] Jul, [facility] [address] [id number] [facility] [place] [address] Jul, [facility] [address] [id number] [facility] [place] [address] Jul, [facility] [address] [id number] [facility] [place] [address] Jun, [facility] [address] [id number] [address] [place] [id number], [place] [address] Jun, [facility] [address] [id number] [address] [place] [id number], [place] [address] Jun, [facility] [address] [id number] [address] [place] [id number], [place] [address] Jun, [facility] [address] [id number] [address] [place] [id number], [place] [address] Jun, [facility] [address] [id number] [address] [place] [address], [place] [address] Jun, [facility] [address] [id number] [address] [place] [address], [place] [address] Jun, [facility] [address] [id number] [address] [place] [address], [place] [address] Jun, [facility] [address] [id number] [address] [place] [address], [place] [address] Jun, [facility] [address] [id number] [address] [place] [address], [place] [address] Jun, [facility] [address] [id number] [address] [place] [address], [place] [address] Jun, [facility] [address] [id number] [address] [place] [address], [place] [address] Jun, [facility] [address] [id number] [facility] [place] [address] May, [facility] [address] [id number] [address] [place] [address], [place] [address] May, [facility] [address] [id number] [address] [place] [address], [place] [address] May, [facility] [address] [id number] [address] [place] [address], [place] [address] May, [facility] [address] [id number] [address] [place] [address], [place] [address] May, [facility] [address] [id number] [address] [place] [address], [place] [address] May, [facility] [address] [id number] [address] [place] [address], [place] [address] March, [facility] [address] [id number] [address] [place] [address], [place] [address] March, [facility] [address] [id number] [address] [place] [address], [place] [address] March, [facility] [address] [id number] [address] [place] [address], [place] [address] March, [facility] [address] [id number] [address] [place] [address], [place] [address] March, [facility] [address] [id number] [address] [place] [address], [place] [address] March, [facility] [address] [id number] [address] [place] [address], [place] [address] Feb, [facility] [address] [id number] [address] [place] [address], [place] [address] Feb, [facility] [address] [id number] [address] [place] [address], [place] [address] Feb, [facility] [address] [id number] [facility] [place] [address] Feb, [facility] [address] [id number] [address] [place] [address], [place] [address] Jan, [facility] [address] [id number] [facility] [place] [address] Jan, [facility] [address] [id number] [address] [place] [address], [place] [address] Jan, [facility] [address] [id number] [address] [place] [address], [place] [address] Jan, [facility] [address] [id number] [address] [place] [address], [place] [address] Jan, [facility] [address] [id number] [address] [place] [address], [place] [address] Jan, [facility] [address] [id number] [address] [place] [address], [place] [address] Jan, [facility] [address] [id number] [address] [place] [address], [place] [address] Jan, [facility] [address] [id number] [address] [place] [address], [place] [address] Jan, [facility] [address] [id number] [address] [place] [address], [place] [address] Jan, [facility] [address] [id number] [address] [place] [address], [place] [address] Jan, [facility] [address] [id number] [address] [place] [address], [place] [address] Jan, [facility] [address] [id number] [address] [place] [address], [place] [address] Dec, [facility] [address] [id number] [address] [place] [address], [place] [address] Dec, [facility] [address] [id number] [address] [place] [address], [place] [address] Dec, [facility] [address] [id number] [address] [place] [address], [place] [address] Dec, [facility] [address] [id number] [address] [place] [address], [place] [address] Dec, [facility] [address] [id number] [address] [place] [address], [place] [address] Dec, [facility] [address] [id number] [address] [place] [address], [place] [address] Nov, [facility] [address] [id number] [address] [place] [address], [place] [address] Nov, [facility] [address] [id number] [address] [place] [address], [place] [address] Oct, [facility] [address] [id number] [address] [place] [address], [place] [address] Oct, [facility] [address] [id number] [address] [place] [address], [place] [address] Oct, [facility] [address] [id number] [address] [place] [address], [place] [address] Oct, [facility] [address] [id number] [address] [place] [address], [place] [address] Oct, [facility] [address] [id number] [address] [place] [address], [place] [address] Oct, [facility] [address] [id number] [address] [place] [address] Sep, [facility] [address] [id number] [address] [place] [address], [place] [address] Sep, [facility] [address] [id number] [address] [place] [address], [place] [address] Sep, [facility] [address] [id number] [address] [place] [address], [place] [address] Sep, [facility] [address] [id number] [address] [place] [address], [place] [address] Aug, [facility] [address] [id number] [address] [place] [address], [place] [address] Aug, [facility] [address] [id number] [address] [place] [address], [place] [address] Aug, [facility] [address] [id number] [address] [place] [address], [place] [address] 17 Jul, 2013 [facility] [address] [id number] [address] [place] [address], [place] [address] 14 Jul, 2013 [facility] [address] [id number] [address] [place] [address], [place] [address] Jul, [facility] [address] [id number] [address] [place] [address], [place] [address] Jun, [facility] [address] [id number] [address] [place] [address], [place] [address] Jun, [facility] [address] [id number] [address] [place] [address], [place] [address] Jun, [facility] [address] [id number] [address] [place] [address], [place] [address] Apr, [facility] [address] [id number] [address] [place] [address], [place] [address] Apr, [facility] [address] [id number] [address] [place] [address], [place] [address] March, [facility] [address] [id number] [address] [place] [address], [place] [address] March, [facility] [address] [id number] [address] [place] [address], [place] [address] March, [facility] [address] [id number] [address] [place] [address], [place] [address] March, [facility] [address] [id number] [address] [place] [address], [place] [address] Feb, [facility] [address] [id number] [address] [place] [address], [place] [address] Jan, [facility] [address] [id number] [address] [place] [address], [place] [address] 13 Dec, 2012 [facility] [address] [id number] [address] [place] [address], [place] [address] 08 Dec, 2012 [facility] [address] [id number] [address] [place] [address], [place] [address] 07 Dec, 2012 [facility] [address] [id number] [address] [place] [address], [place] [address] Nov, [facility] [address] [id number] [address] [place] [address], [place] [address] Oct, [facility] [address] [id number] [address] [place] [address], [place] [address] Oct, [facility] [address] [id number] [address] [place] [address], [place] [address] Sep, [facility] [address] [id number] [address] [place] [address], [place] [address] Sep, [facility] [address] [id number] [address] [place] [address], [place] [address] Sep, [facility] [address] [id number] [address] [place] [address], [place] [address] Sep, [facility] [address] [id number] [address] [place] [address] Sep, [facility] [address] [id number] [address] [place] [address], [place] [address] Sep, [facility] [address] [id number] [address] [place] [address], [place] [address] Sep, [facility] [address] [id number] [address] [place] [address], [place] [address] 16 Aug, 2012 [facility] [address] [id number] [address] [place] [address] 16 Aug, 2012 [facility] [address] [id number] [address] [place] [address], [place] [address] 10 Aug, 2012 [facility] [address] [id number] [address] [place] [address], [place] [address] 10 Aug, 2012 [facility] [address] [id number] [address] [place] [address], [place] [address] 08 Aug, 2012 [facility] [address] [id number] [address] [place] [address], [place] [address] 08 Aug, 2012 [facility] [address] [id number] [address] [place] [address], [place] [address] Aug, [facility] [address] [id number] [address] [place] [address], [place] [address] Aug, [facility] [address] [id number] [address] [place] [address], [place] [address] Jul, [facility] [address] [id number] [address] [place] [address], [place] [address] Jul, [facility] [address] [id number] [address] [place] [address], [place] [address] Jun, [facility] [address] [id number] [address] [place] [address], [place] [address] May, [facility] [address] [id number] [address] [place] [address], [place] [address] Apr, [facility] [address] [id number] [address] [place] [address], [place] [address] Apr, [facility] [address] [id number] [address] [place] [address], [place] [address] Apr, [facility] [address] [id number] [address] [place] [address], [place] [address] March, [facility] [address] [id number] [address] [place] [address], [place] [address] March, [facility] [address] [id number] [address] [place] [address], [place] [address] March, [facility] [address] [id number] [address] [place] [address], [place] [address] March, [facility] [address] [id number] [address] [place] [address], [place] [address] March, [facility] [address] [id number] [address] [place] [address], [place] [address] March, [facility] [address] [id number] [address] [place] [address], [place] [address] March, [facility] [address] [id number] [address] [place] [address], [place] [address] Jan, [facility] [address] [id number] [address] [place] [address], [place] [address] Jan, [facility] [address] [id number] [address] [place] [address], [place] [address] Jan, [facility] [address] [id number] [address] [place] [address], [place] [address] Jan, [facility] [address] [id number] [address] [place] [address], [place] [address] Jan, [facility] [address] [id number] [address] [place] [address], [place] [address] Dec, [facility] [address] [id number] [address] [place] [address], [place] [address] Dec, [facility] [address] [id number] [address] [place] [address], [place] [address] Nov, [facility] [address] [id number] [address] [place] [address], [place] [address] Nov, [facility] [address] [id number] [address] [place] [address], [place] [address] Nov, [facility] [address] [id number] [address] [place] [address] [address] 05 Nov, 2011 [facility] [address] [id number] [address] [place] [address], [place] [address] 21 Oct, 2011 [facility] [address] [id number] [address] [place] [address], [place] [address] 06 Oct, 2011 [facility] [address] [id number] [address] [place] [address], [place] [address] 14 Sep, 2011 [facility] [address] [id number] [address] [place] [address], [place] [address] 10 Sep, 2011 [facility] [address] [id number] [address] [place] [address], [place] [address] 10 Sep, 2011 [facility] [address] [id number] [address] [place] [address], [place] [address] 11 May, 2011 [facility] [address] [id number] [address] [place] [address], [place] [address] 20 Nov, 2010 [facility] [address] [id number] [address] [place] [address], [place] [address] 29 Oct, 2010 [facility] [address] [id number] [address] [place] [address], [place] [address] 14 Oct, 2010 [facility] [address] [id number] [address] [place] [address], [place] [address] 08 Oct, 2010 [facility] [address] [id number] [address] [place] [address], [place] [address] 15 Sep, 2010 [facility] [address] [id number] [address] [place] [address], [place] [address] Sep, [facility] [address] [id number] [address] [place] [address], [place] [address] Aug, [facility] [address] [id number] [address] [place] [address], [place] [address] March, [facility] [address] [id number] [address] [place] [address], [place] [address] 17 Oct, 2009 [facility] [address] [id number] [address] [place] [address] Oct, [facility] [address] [id number] [address] [place] [address] Oct, [facility] [address] [id number] [address] [place] [address] Oct, [facility] [address] [id number] [address] [place] [address] Sep, [facility] [address] [id number] [address] [place] [address] Sep, [facility] [address] [id number] [address] [place] [address] Sep, [facility] [address] [id number] [address] [place] [address] Aug, [facility] [address] [id number] [address] [place] [address] Aug, [facility] [address] [id number] [address] [place] [address] Aug, [facility] [address] [id number] [address] [place] [address] Jan, IMMUNIZATIONS No Known Immunizations SOCIAL HISTORY Never Assessed REASON FOR VISIT Lab results PLAN OF CARE VITAL SIGNS MEDICATIONS Medication Instructions Dosage Frequency Start Date End Date Duration S tatus Welchol 625 MG Orally Twice a day with meals 3 capsules 21 J 2016 30 days Active Levothyroxine Sodium 75 mcg Orally [...]
--- OUTSIDE RECORDS SUMMARY | 2020-06-13 16:36 | XMS REPORT ---
Author Author Jah GIBBS Organization [facility] Address [address] [place] [address] Care Team Providers Care Furnace Caretaker Name Role Phone SILVERIO GIBBSNETTE Unavailable PROBLEMS Type Condition ICD9-CM Code [id number] Code Onset Dates Condition S tatus SNOMED Code Problem Overactive bladder N32.81 Active 2 53344897 Problem Gastroesophageal reflux disease without esophagitis K21.9 Active 142834649 Problem Mixed hyperlipidemia E78.2 Active 128329042 Problem Type 2 diabetes mellitus without complications E11 .9 Active 727064366 Problem assisted current use of insulin Z79.4 Active 628470012 Problem Irritable bowel syndrome with diarrhea K58.0 Active 745279127 Problem Functional diarrhea K59.1 Active 76001385 Problem Diabetes mellitus E11.9 Active 73 441569 Problem Gastroesophageal reflux disease with esophagitis K 21.0 Active 847483921 Problem Chronic pain G89.29 Active 2071140 1 Problem Insomnia G47.00 Active 845597999 Problem HTN (hypertension) I10 Active 3 0839078 Problem Neuropathy G62.9 Active 497846868 Problem Depression F32.9 Active 17989265 Problem Hypothyroid E03.9 Active 17158313 Problem GERD (gastroesophageal reflux disease) K21.9 Active 232771566 ALLERGIES No Information SOCIAL HISTORY Never Assessed PLAN OF CARE VITAL SIGNS MEDICATIONS Medication Instructions Dosage Frequency Start Date End Date Duration S tatus Tramadol HCl 50 mg Orally every 6 hrs 1 tablet as needed 6h 3 0 Oct, 2016 Jan, 28 days Active RESULTS No Results [...]
--- OUTSIDE RECORDS SUMMARY | 2020-06-13 16:36 | XMS REPORT ---
Author Author Jah PARKER Organization [facility] Address [address] [place] [address] Care Team Providers Care Field Cashier Name Role Phone PARKERSHAYLEE MckeonELE Unavailable PROBLEMS Type Condition ICD9-CM Code VFO88-KF Code Onset Dates Condition S tatus SNOMED Code Problem Gastroesophageal reflux disease with esophagitis K 21.0 Active 437177756 Problem Type 2 diabetes mellitus with hyperglycemia E11.65 Active 29285714 Problem assisted current use of insulin Z79.4 Active 309998849 Problem Depression F32.9 Active 36579031 Problem Diabetes mellitus E11.9 Active 73 402610 Problem Pulmonary emphysema, unspecified emphysema type J4 3.9 Active 57263993 Problem Essential (primary) hypertension I10 Active 02695828 Problem Recurrent major depressive disorder, in partial remission F33.41 Active 77013393 Problem Current non-adherence to medical treatment Z91.19 Active 8924210 Problem Thrombocytosis D47.3 Active 09433 09 Problem Neuropathy G62.9 Active 241825193 Problem Overactive bladder N32.81 Active 2 39605135 Problem Hypothyroid E03.9 Active 80335693 Problem Mixed hyperlipidemia E78.2 Active 327880547 Problem Chronic pain G89.29 Active 1335934 1 Problem Irritable bowel syndrome with diarrhea K58.0 Active 047843382 ALLERGIES Substance Reaction Event Type Date Status Trilipix nausea Drug Allergy Nov, Active Niacin rash Drug Allergy Nov, Active Metformin HCl diarrhea Drug Allergy Nov, Active Januvia diarrhea Drug Allergy Nov, Active Gemfibrozil diarrhea Drug Allergy Nov, Active Actos diarrhea Drug Allergy Nov, Active ENCOUNTERS Encounter Location Date Diagnosis [facility] [address] [facility] [id number] [address] [place] [address] Apr, Hypothyroid E03.9 [facility] [address] [facility] [id number] [address] [place] [address] Apr, Depression F32.9 [facility] [address] [facility] [id number] [address] [place] [address] Apr, [place] [address] [facility] [id number] [address] [place] [address] March, [place] [address] [place] [id number] [address] [place] [address] March, Hypothyroid E03.9 [place] [address] [facility] [id number] [address] [place] [address] March, Diabetes mellitus E11.9 and Hypothyroid E03.9 [place] [address] [place] [id number] [place] [address] March, Diabetes mellitus E11.9 [place] [address] [place] [id number] [address] [place] [address] March, Hypothyroid E03.9 and Elevat ed liver enzymes R74.8 [place] [address] [facility] [id number] [address] [place] [address] March, Type 2 diabetes mellitus wit h hyperglycemia E11.65 ; assisted current use of insulin Z79.4 ; Pulmonary emphysema, unspecified emphysema type J43.9 ; Hypothyroid E03.9 ; Neuropathy G62.9 ; Mixed hyperlipidemia E78.2 ; Chronic pain G89.29 ; Gastroesophageal reflux disease with esophagitis K21.0 ; Irritable bowel syndrome with diarrhea K58.0 ; Overactive bladder N32.81 and Recurrent major depressive disorder, in partial remission F33.41 [place] [address] [facility] [id number] [address] [place] [address] Feb, Chronic pain G89.29 [place] [address] [place] [id number] [address] [place] [address] Feb, Type 2 diabetes mellitus wit h hyperglycemia E11.65 and Skin lesion of scalp L98.9 [place] [address] [place] [id number] [address] [place] [address] Feb, [place] [address] [facility] [id number] [address] [place] [address] Jan, Type 2 diabetes mellitus wit h hyperglycemia E11.65 ; assisted current use of insulin Z79.4 ; Essential (primary) hypertension I10 ; Pulmonary emphysema, unspecified emphysema type J43.9 ; Chronic pain G89.29 ; Controlled substance agreement signed Z79.899 ; Hypothyroid E03.9 ; Neuropathy G62.9 ; Gastroesophageal reflux disease with esophagitis K21.0 ; Overactive bladder N32.81 ; Depression F32.9 and Irritable bowel syndrome with diarrhea K58.0 [place] [address] [facility] [id number] [address] [place] [address] Jan, [place] [address] [place] [id number] [address] [place] [address] Jan, Controlled substance agreeme nt signed Z79.899 [place] [id number] [place] [address] Dec, Type 2 diabetes mellitus wit h [...] treatment Z91.19 and Overweight (BMI 25.0-29.9) E66.3 [place] [address] [place] [id number] [address] [place] [address] Dec, Controlled substance agreeme nt signed Z79.899 [place] [id number] [address] [place] [address] Nov, Type 2 diabetes mellitus wit h hyperglycemia E11.65 and Current non- adherence to medical treatment Z91.19 [place] [address] [place] [id number] [address] [place] [address] Nov, [facility] [address] [facility] [id number] [address] [place] [address] Nov, Chronic pain G89.29 [facility] [address] [id number] [address] [place] [address] Nov, [facility] [address] [facility] [id number] [address] [place] [address] Nov, Hypothyroid E03.9 [facility] [address] [id number] [address] [place] [address] Nov, Hypothyroid E03.9 [facility] [address] [facility] [id number] [address] [place] [address] Nov, Pulmonary emphysema, unspeci fied emphysema type J43.9 and Irritable bowel syndrome with diarrhea K58.0 [facility] [address] [facility] [id number] [address] [place] [address] Oct, [facility] [address] [facility] [id number] [address] [place] [address] Oct, [facility] [address] [facility] [id number] [address] [place] [address] Oct, [facility] [address] [facility] [id number] [address] [place] [address] Oct, [facility] [address] [facility] [id number] [address] [place] [address] Oct, Chronic pain G89.29 [facility] [address] [facility] [id number] [address] [place] [address] Oct, Diabetes mellitus E11.9 ; De pression F32.9 ; Mixed hyperlipidemia E78.2 ; Hypotension, unspecified hypotension type I95.9 ; Pulmonary emphysema, unspecified emphysema type J43.9 and Weight loss, unintentional R63.4 [facility] [address] [facility] [id number] [address] [place] [address] Oct, Chronic pain G89.29 [facility] [address] [place] [id number] [address] [place] [address] Sep, Chronic pain G89.29 [facility] [address] [place] [id number] [address] [place] [address] Sep, Hypothyroid E03.9 and Diabet es mellitus E11.9 [facility] [address] [place] [id number] [address] [place] [address] Aug, Type 2 diabetes mellitus wit h hyperglycemia E11.65 ; assisted current use of insulin Z79.4 ; Essential (primary) hypertension I10 ; Hypothyroid E03.9 ; Neuropathy G62.9 ; Chronic pain G89.29 ; Mixed hy perlipidemia E78.2 and Encounter for immunization Z23 [facility] [address] [place] [id number] [address] [place] [address] Aug, Chronic pain G89.29 [facility] [address] [address] Aug, Overactive bladder N32.81 ; Diabetes mellitus E11.9 and Chronic pain G89.29 [facility] [address] [place] [id number] [address] [place] [address] Jul, [facility] [address] [place] [id number] [address] [place] [address] Jun, [facility] [address] [place] [id number] [address] [place] [address] Jun, [facility] [address] [place] [id number] [address] [place] [address] Jun, Hypothyroid E03.9 [facility] [address] [place] [id number] [address] [place] [address] Jun, Diabetes mellitus E11.9 ; Hy pothyroid E03.9 ; Neuropathy G62.9 ; Chronic pain G89.29 and Neck mass R22.1 [facility] [address] [place] [id number] [address] [place] [address] Apr, [facility] [address] [place] [id number] [address] [place] [address] Apr, Acute cystitis without hemat uria N30.00 [facility] [address] [address] March, [facility] [address] [address] March, [facility] [address] [address] March, Near syncope R55 [facility] [address] [address] Feb, [facility] [address] [address] Feb, Chronic pain G89.29 [place] [address] [address] Feb, [facility] [address] [address] Feb, [facility] [address] [address] Jan, Chronic pain G89.29 [facility] [address] [address] Jan, [facility] [address] [address] Jan, [facility] [address] [place] [id number] [address] [place] [address] 14 Jan, 2017 Diabetes mellitus E11.9 ; Hy pothyroid E03.9 ; GERD (gastroesophageal reflux disease) K21.9 ; Insomnia G47.00 ; Functional diarrhea K59.1 ; Neuropathy G62.9 ; Depression F32.9 ; Chronic pain G89.29 ; Irritable bowel syndrome with diarrhea K58.0 ; Overactive bladder N32.81 ; Mixed hyperlipidemia E78.2 and Bronchitis J40 [facility] [address] [place] [id number] [address] [place] [address] Dec, [facility] [address] [facility] [id number] [address] [place] [address] Dec, [facility] [address] [facility] [id number] [address] [place] [address] Dec, [facility] [address] [place] [id number] [address] [place] [address] Dec, [facility] [address] [facility] [id number] [address] [place] [address] Dec, Chronic pain G89.29 [facility] [address] [place] [id number] [address] [place] [address] Dec, [facility] [address] [place] [id number] [address] [place] [address] Dec, [facility] [address] [place] [id number] [address] [place] [address] Dec, Type 2 diabetes mellitus wit h foot ulcer E11.621 [facility] [address] [place] [id number] [address] [place] [address] 17 Dec, 2016 Type 2 diabetes mellitus wit h foot ulcer E11.621 [facility] [address] [place] [address] 14 Dec, 2016 HTN (hypertension) I10 ; Dep ression F32.9 ; Type 2 diabetes mellitus with foot ulcer E11.621 ; Functional diarrhea K59.1 ; Irritable bowel syndrome with diarrhea K58.0 ; Chronic pain G89.29 ; Insomnia G47.00 ; Overactive bladder N32.81 ; Mixed hyperlipidemia E78.2 ; Gastroesophageal reflux disease with esophagitis K21.0 and Acquired hypothyroidism E03.9 [facility] [address] [place] [id number] [address] [place] [address] Nov, [facility] [address] [place] [address] Oct, [place] [address] [address] Oct, [place] [address] [address] Oct, [place] [address] [address] Sep, Functional diarrhea K59.1 ; HTN (hypertension) I10 ; Diabetes mellitus E11.9 ; Depression F32.9 ; Overactive bladder N32.81 ; Mixed hyperlipidemia E78.2 ; Gastroesophageal reflux disease without esophagitis K21.9 ; Chronic pain G89.29 ; Insomnia G47.00 and Acquired hypothyroidism E03.9 [place] [address] [address] Sep, [place] [address] [address] 11 Aug, 2016 Encounter for immunization Z 23 [place] [address] [address] 06 Aug, 2016 [place] [address] [address] 09 Jul, 2016 [place] [address] [address] Jun, Type 2 diabetes mellitus wit hout complications E11.9 ; HTN (hypertension) I10 ; Hypothyroid E03.9 ; Neuropathy G62.9 ; Depression F32.9 ; Chronic pain G89.29 ; GERD (gastroesophageal reflux disease) K21.9 ; Insomnia G47.00 ; Overactive bladder N32.81 ; Mixed hyperlipidemia E78.2 ; Diarrhea of infectious origin A09 and Environmental allergies Z91.09 [place] [address] [address] Apr, [place] [address] [address] March, Hypothyroidism, unspecified E03.9 and Mixed hyperlipidemia E78.2 [place] [address] [place] [id number] [address] [place] [address] March, Diabetes mellitus E11.9 ; HT N (hypertension) I10 ; Hypothyroid E03.9 ; Depression F32.9 ; Overactive bladder N32.81 ; Other chronic pain G89.29 ; Lumbago with sciatica, unspecified side M54.40 ; Environmental allergies Z91.09 and Gastroesophageal reflux disease, esophagitis presence not specified K21.9 [place] [address] [place] [id number] [address] [place] [address] March, [place] [address] [address] Jan, HTN (hypertension) I10 ; Hyp othyroid E03.9 ; Neuropathy G62.9 ; Diabetes mellitus E11.9 ; Chronic pain G89.29 ; GERD (gastroesophageal reflux disease) K21.9 ; Overactive bladder N32.81 and Depression F32.9 [place] [address] [place] [id number] [address] [place] [address] Dec, Ear pain, left H92.02 ; HTN (hypertension) I10 ; Hypothyroid E03.9 ; Neuropathy G62.9 ; Diabetes mellitus E11.9 ; Depression F32.9 ; GERD (gastroesophageal reflux disease) K21.9 ; Insomnia G47.00 and Overactive bladder N32.81 [place] [address] [place] [id number] [address] [place] [address] Nov, Overactive bladder N32.81 an d Chronic pain G89.29 [place] [address] [place] [id number] [address] [place] [address] Nov, Kidney failure N19 [place] [address] [place] [id number] [address] [place] [address] Nov, [place] [address] [place] [id number] [address] [place] [address] Nov, [place] [address] [place] [address] [address] Nov, Diabetes mellitus E11.9 ; De pression F32.9 ; Chronic pain G89.29 ; GERD (gastroesophageal reflux disease) K21.9 ; Insomnia G47.00 ; HTN (hypertension) I10 ; Hypothyroid E03.9 ; COPD (chronic obstructive pulmonary disease) J44.9 ; Bladder incontinence R32 and Incontinence R32 [address] [address] Sep, Type 2 diabetes mellitus wit h foot ulcer E11.621 and Chromosomal abnormality, 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 [address] Sep, [address] [address] Aug, [address] [address] Aug, [address] [address] Aug, HTN (hypertension) I10 ; Enc ounter for immunization Z23 ; Hypothyroid E03.9 ; Neuropathy G62.9 ; Diabetes mellitus E11.9 ; Depression F32.9 ; Chronic pain G89.29 ; GERD (gastroesophageal reflux disease) K21.9 ; Insomnia G47.00 and COPD (chronic obstructive pulmonary disease) J44.[address] [address] Jun, [address] [address] Jun, [address] [address] May, Essential hypertension, ivis gn 401.1 ; Unspecified hypothyroidism 244.9 ; Insomnia, unspecified 780.52 ; Shortness of breath 786.05 ; Depression 311 ; COPD (chronic obstructive pulmonary disease) 496 ; GERD (gastroesophageal reflux disease) 530.81 and Diabetes 1.5, 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 [address] [facility] [id number] [address] [place] [address] May, [facility] [address] [facility] [id number] [address] [place] [address] May, [facility] [address] [facility] [id number] [address] [place] [address] May, Shortness of breath 786.05 ; Essential hypertension, benign 401.1 ; Diabetes mellitus 250.00 ; Hyperlipidemia 272.4 ; Hypothyroid 244.9 ; Insomnia 780.52 and Cough 786.2 [facility] [address] [facility] [id number] [address] [place] [address] Apr, [facility] [address] [facility] [id number] [address] [place] [address] March, Shortness of breath 786.05 ; Nausea with vomiting 787.01 ; Essential hypertension, benign 401.1 ; Diabetes mellitus 250.00 ; Hyperlipidemia 272.4 and Hypothyroid 244.9 [facility] [address] [facility] [id number] [address] [place] [address] Feb, [facility] [address] [facility] [id number] [address] [place] [address] Feb, [facility] [address] [facility] [id number] [address] [place] [address] Jan, [facility] [address] [facility] [id number] [address] [place] [address] Jan, [facility] [address] [facility] [id number] [address] [place] [address] Jan, [facility] [address] [facility] [id number] [address] [place] [address] Jan, [facility] [address] [facility] [id number] [address] [place] [address] Jan, [facility] [address] [facility] [id number] [address] [place] [address] Jan, [facility] [address] [id number] [address] [place] [address], [place] [address] Jan, [facility] [address] [id number] [address] [place] [address], [place] [address] Jan, [facility] [address] [id number] [address] [place] [address], [place] [address] Jan, [facility] [address] [id number] [address] [place] [address], [place] [address] Jan, [facility] [address] [id number] [address] [place] [address], [place] [address] Dec, 2014 [facility] [address] [id number] [address] [place] [address], [place] [address] Dec, 2014 [facility] [address] [id number] [address] [place] [address], [place] [address] Dec, 2014 [facility] [address] [id number] [address] [place] [address], [place] [address] Dec, 2014 [facility] [address] [id number] [address] [place] [address], [place] [address] Dec, 2014 [facility] [address] [id number] [address] [place] [address], [place] [address] Dec, 2014 [facility] [address] [id number] [address] [place] [address], [place] [address] Dec, 2014 [facility] [address] [id number] [address] [place] [address] Dec, 2014 [facility] [address] [id number] [address] [place] [address] Dec, 2014 [facility] [address] [id number] [address] [place] [address] Dec, 2014 [facility] [address] [id number] [address] [place] [address] Oct, [facility] [address] [id number] [address] [place] [address], [place] [address] Oct, [facility] [address] [id number] [address] [place] [address], [place] [address] Oct, [facility] [address] [id number] [address] [place] [address], [place] [address] Oct, [facility] [address] [id number] [address] [place] [address], [place] [address] Oct, [facility] [address] [id number] [address] [place] [address], [place] [address] Oct, [facility] [address] [id number] [address] [place] [address], [place] [address] Oct, [facility] [address] [id number] [address] [place] [address], [place] [address] Oct, [facility] [address] [id number] [address] [place] [address], [place] [address] Oct, [facility] [address] [id number] [address] [place] [address], [place] [address] Oct, [facility] [address] [id number] [address] [place] [address], [place] [address] Oct, [facility] [address] [id number] [address] [place] [address], [place] [address] Oct, [facility] [address] [id number] [address] [place] [address], [place] [address] Oct, [facility] [address] [id number] [address] [place] [address], [place] [address] Oct, [facility] [address] [id number] [address] [place] [address], [place] [address] Sep, [facility] [address] [id number] [address] [place] [address], [place] [address] Sep, [facility] [address] [id number] [address] [place] [address], [place] [address] Sep, [facility] [address] [id number] [address] [place] [address], [place] [address] Sep, [facility] [address] [id number] [address] [place] [address], [place] [address] Sep, [facility] [address] [id number] [address] [place] [address], [place] [address] Sep, [facility] [address] [id number] [address] [place] [id number] Sep, [facility] [address] [id number] [address] [place] [address], [place] [address] Sep, [facility] [address] [id number] [address] [place] [address], [place] [address] Sep, [facility] [address] [id number] [address] [place] [address], [place] [address] Aug, [facility] [address] [id number] [address] [place] [address], [place] [address] Aug, [facility] [address] [id number] [address] [place] [address], [place] [address] Aug, [facility] [address] [id number] [address] [place] [address], [place] [address] Aug, [facility] [address] [id number] [address] [place] [id number] 16 Aug, 2014 [facility] [address] [id number] [address] [place] [id number] Aug, [facility] [address] [id number] [address] [place] [address], [place] [address] Aug, [facility] [address] [id number] [address] [place] [id number] Aug, [facility] [address] [id number] [address] [place] [id number] Aug, [facility] [address] [id number] [facility] [place] [address] 29 Jul, 2013 [facility] [address] [id number] [facility] [place] [address] Jul, 2013 [facility] [address] [id number] [facility] [place] [address] Jul, 2013 [facility] [address] [id number] [address] [place] [address], [place] [address] Jul, 2013 [facility] [address] [id number] [address] [place] [address], [place] [address] Jul, 2013 [facility] [address] [id number] [address] [place] [address], [place] [address] Jul, [facility] [address] [id number] [address] [place] [address], [place] [address] Jul, [facility] [address] [id number] [address] [place] [address], [place] [address] Jul, [facility] [address] [id number] [address] [place] [address], [place] [address] Jul, [facility] [address] [id number] [address] [place] [address], [place] [address] Jul, [facility] [address] [id number] [address] [place] [address], [place] [address] Jun, [facility] [address] [id number] [address] [place] [address], [place] [address] Jun, [facility] [address] [id number] [address] [place] [address], [place] [address] Jun, [facility] [address] [id number] [address] [place] [address], [place] [address] Jun, [facility] [address] [id number] [address] [place] [address], [place] [id number] Jun, [facility] [address] [id number] [address] [place] [address], [place] [address] Jun, [facility] [address] [id number] [facility] [place] [address] Jun, [facility] [address] [id number] [address] [place] [address], [place] [address] Jun, [facility] [address] [id number] [address] [place] [address], [place] [address] Jun, [facility] [address] [id number] [address] [place] [address], [place] [address] Jun, [facility] [address] [id number] [address] [place] [address], [place] [address] Jun, [facility] [address] [id number] [address] [place] [address], [place] [address] Jun, [facility] [address] [id number] [address] [place] [address], [place] [address] May, [facility] [address] [id number] [address] [place] [address], [place] [address] May, [facility] [address] [id number] [address] [place] [address], [place] [address] May, [facility] [address] [id number] [address] [place] [address], [place] [address] May, [facility] [address] [id number] [address] [place] [address], [place] [address] May, [facility] [address] [id number] [address] [place] [address], [place] [address] May, [facility] [address] [id number] [address] [place] [address], [place] [address] March, [facility] [address] [id number] [address] [place] [address], [place] [address] March, [facility] [address] [id number] [address] [place] [address], [place] [address] March, [facility] [address] [id number] [address] [place] [address], [place] [address] March, [facility] [address] [id number] [address] [place] [address], [place] [address] March, [facility] [address] [id number] [address] [place] [address], [place] [address] March, [facility] [address] [id number] [address] [place] [address], [place] [address] Feb, [facility] [address] [id number] [address] [place] [address], [place] [address] Feb, [facility] [address] [id number] [address] [place] [address], [place] [address] Feb, [facility] [address] [id number] [address] [place] [address], [place] [address] Feb, [facility] [address] [id number] [address] [place] [address], [place] [address] Jan, [facility] [address] [id number] [address] [place] [address], [place] [address] Jan, [facility] [address] [id number] [address] [place] [address], [place] [address] Jan, [facility] [address] [id number] [address] [place] [address], [place] [address] Jan, [facility] [address] [id number] [address] [place] [address], [place] [address] Jan, [facility] [address] [id number] [address] [place] [address], [place] [address] Jan, [facility] [address] [id number] [address] [place] [address], [place] [address] Jan, [facility] [address] [id number] [address] [place] [address], [place] [address] Jan, [facility] [address] [id number] [address] [place] [address], [place] [address] Jan, [facility] [address] [id number] [address] [place] [address], [place] [address] Jan, [facility] [address] [id number] [address] [place] [address], [place] [address] Jan, [facility] [address] [id number] [address] [place] [address], [place] [address] Jan, [facility] [address] [id number] [address] [place] [address], [place] [address] Dec, [facility] [address] [id number] [address] [place] [address], [place] [address] Dec, [facility] [address] [id number] [address] [place] [address], [place] [address] Dec, [facility] [address] [id number] [address] [place] [address], [place] [address] Dec, [facility] [address] [id number] [address] [place] [address], [place] [address] Dec, [facility] [address] [id number] [address] [place] [address], [place] [address] Dec, [facility] [address] [id number] [address] [place] [address], [place] [address] Nov, [facility] [address] [id number] [address] [place] [address], [place] [address] Nov, [facility] [address] [id number] [address] [place] [address], [place] [address] Oct, [facility] [address] [id number] [address] [place] [address], [place] [address] Oct, [facility] [address] [id number] [address] [place] [address], [place] [address] Oct, [facility] [address] [id number] [address] [place] [address], [place] [address] Oct, [facility] [address] [id number] [address] [place] [id number] Oct, [facility] [address] [id number] [address] [place] [address], [place] [address] Oct, [facility] [address] [id number] [address] [place] [id number] Sep, [facility] [address] [id number] [address] [place] [address], [place] [address] Sep, [facility] [address] [id number] [address] [place] [id number] Sep, [facility] [address] [id number] [address] [place] [address], [place] [address] Sep, [facility] [address] [id number] [address] [place] [address], [place] [address] Aug, [facility] [address] [id number] [address] [place] [address], [place] [address] Aug, [facility] [address] [id number] [address] [place] [address], [place] [address] Aug, [facility] [address] [id number] [address] [place] [address], [place] [address] Jul, [facility] [address] [id number] [address] [place] [address], [place] [address] 14 Jul, 2013 [facility] [address] [id number] [address] [place] [id number] Jul, [facility] [address] [id number] [address] [place] [id number] Jun, [facility] [address] [id number] [address] [place] [address], [place] [address] Jun, [facility] [address] [id number] [address] [place] [address], [place] [address] Jun, [facility] [address] [id number] [address] [place] [address], [place] [address] Apr, [facility] [address] [id number] [address] [place] [address], [place] [address] Apr, [facility] [address] [id number] [address] [place] [address], [place] [address] March, [facility] [address] [id number] [address] [place] [address], [place] [address] March, [facility] [address] [id number] [address] [place] [address], [place] [address] March, [facility] [address] [id number] [address] [place] [address], [place] [address] March, [facility] [address] [id number] [address] [place] [address], [place] [address] Feb, [facility] [address] [id number] [address] [place] [address], [place] [address] Jan, [facility] [address] [id number] [address] [place] [address], [place] [address] Dec, [facility] [address] [id number] [address] [place] [address], [place] [address] Dec, [facility] [address] [id number] [address] [place] [address], [place] [address] Dec, [facility] [address] [id number] [address] [place] [address], [place] [address] Nov, [facility] [address] [id number] [address] [place] [address], [place] [address] Oct, [facility] [address] [id number] [address] [place] [address], [place] [address] Oct, [facility] [address] [id number] [address] [place] [address], [place] [address] Sep, [facility] [address] [id number] [address] [place] [address], [place] [address] Sep, [facility] [address] [id number] [address] [place], [place] [address] [address] Sep, [facility] [address] [id number] [address] [place] [address], [place] [address] Sep, [facility] [address] [id number] [address] [place] [address], [place] [address] Sep, [facility] [address] [id number] [address] [place] [address], [place] [address] Sep, [facility] [address] [id number] [address] [place] [address], [place] [address] Sep, [facility] [address] [id number] [address] [place] [address], [place] [address] Aug, [facility] [address] [id number] [address] [place] [address], [place] [address] Aug, [facility] [address] [id number] [address] [place] [address], [place] [address] Aug, [facility] [address] [id number] [address] [place] [address], [place] [address] Aug, [facility] [address] [id number] [address] [place] [address], [place] [address] Aug, [facility] [address] [id number] [address] [place] [id number] Aug, [facility] [address] [id number] [address] [place] [id number] Aug, [facility] [address] [id number] [address] [place] [id number] Aug, [facility] [address] [id number] [address] [place] [address], [place] [address] Jul, [facility] [address] [id number] [address] [place] [id number] Jul, [facility] [address] [id number] [address] [place] [address], [place] [address] Jun, [facility] [address] [id number] [address] [place] [address], [place] [address] May, [facility] [address] [id number] [address] [place] [address], [place] [address] Apr, [facility] [address] [id number] [address] [place] [address], [place] [address] Apr, [facility] [address] [id number] [address] [place] [address], [place] [address] Apr, [facility] [address] [id number] [address] [place] [address], [place] [address] March, [facility] [address] [id number] [address] [place] [address], [place] [address] March, [facility] [address] [id number] [address] [place] [address], [place] [address] March, [facility] [address] [id number] [address] [place] [address], [place] [address] March, [facility] [address] [id number] [address] [place] [address], [place] [address] March, [facility] [address] [id number] [address] [place] [address], [place] [address] March, [facility] [address] [id number] [address] [place] [address], [place] [address] March, [facility] [address] [id number] [address] [place] [address], [place] [address] Jan, [facility] [address] [id number] [address] [place] [address], [place] [address] Jan, [facility] [address] [id number] [address] [place] [address], [place] [address] Jan, [facility] [address] [id number] [address] [place] [address], [place] [address] Jan, [facility] [address] [id number] [address] [place] [address], [place] [address] Jan, [facility] [address] [id number] [address] [place] [address], [place] [address] Dec, [facility] [address] [id number] [address] [place] [address], [place] [address] Dec, [facility] [address] [id number] [address] [place] [address], [place] [address] Nov, [facility] [address] [id number] [address] [place] [address], [place] [address] Nov, [facility] [address] [id number] [address] [place] [address], [place] [address] Nov, [facility] [address] [id number] [address] [place] [address], [place] [address] Nov, [facility] [address] [id number] [address] [place] [address], [place] [address] Oct, [facility] [address] [id number] [address] [place] [address], [place] [address] Oct, [facility] [address] [id number] [address] [place] [address], [place] [address] 14 Sep, 2011 [facility] [address] [id number] [address] [place] [address], [place] [address] Sep, [facility] [address] [id number] [address] [place] [address], [place] [address] Sep, [facility] [address] [id number] [address] [place] [address], [place] [address] May, [facility] [address] [id number] [address] [place] [address], [place] [address] Nov, [facility] [address] [id number] [address] [place] [address], [place] [address] 29 Oct, 2010 [facility] [address] [id number] [address] [place] [address], [place] [address] 14 Oct, 2010 [facility] [address] [id number] [address] [place] [id number] 08 Oct, 2010 [facility] [address] [id number] [address] [place] [id number] 15 Sep, 2010 [facility] [address] [id number] [address] [place] [id number] Sep, [facility] [address] [id number] [address] [place] [id number] Aug, [facility] [address] [id number] [address] [place] [address] March, [facility] [address] [id number] [address] [place] [id number] Oct, [facility] [address] [id number] [address] [place] [id number] Oct, [facility] [address] [id number] [address] [place] [id number] Oct, [facility] [address] [id number] [address] [place] [id number] Oct, [facility] [address] [id number] [address] [place] [id number] Sep, [facility] [address] [id number] [address] [place] [id number] Sep, [facility] [address] [id number] [address] [place] [phone] Sep, [facility] [address] [id number] [address] [place] [id number] Aug, [facility] [address] [id number] [address] [place] [id number] 24 Aug, 2009 [facility] [address] [id number] [address] [place] [id number] Aug, [facility] [address] [id number] [address] [place] [id number] 10 Jan, 2009 IMMUNIZATIONS No Known Immunizations SOCIAL HISTORY Never Assessed REASON FOR VISIT Pre Surgery Consult--[facility] PLAN OF CARE Activity Details Follow Up 4 Weeks Reason:DM f/U VITAL SIGNS Height 69 in 2017-12-10 Weight 168.6 lbs 2017-12-10 Temperature 97.7 degrees Fahrenheit 2017-12-10 Heart Rate 88 bpm 2017-12-10 Respiratory Rate 20 2017-12-10 BMI 24.90 kg/m2 2017-12-10 Blood pressure systolic 128 mmHg 2017-12-10 Blood pressure diastolic 86 mmHg 2017-12-10 MEDICATIONS Medication Instructions Dosage Frequency Start Date End Date Duration S gato Dicyclomine HCl 20 mg Orally Once a day 1 tablet 24h Active Levemir FlexTouch 100 unit/mL (3 mL) Subcutaneous 2 times a day 120units bid 12h Jan, Active Welchol 625 MG Orally Once a day 1 capsule 24h Apr, Active Oxybutynin Chloride 5 mg Orally Twice a day 1 tablet 12h Not-Taking Effexor XR 75 mg Orally Once a day take 1 capsule (75 m g) by oral route once daily with food 24h Jan, Not-Taking Tramadol HCl 50 mg Orally 4 times a day TAKE ONE TABLET BY MOUTH EVERY 6 hours as needed 6h 28 days Active Proventil HFA 108 (90 Base) MCG/ACT Inhalation every 4 hrs 2 puffs as needed 4h May, Active Viberzi 75 MG Orally Twice a day 1 tablet with food 12h 90 days Not-Taking Trilipix 135 MG Orally Once a day 1 capsule 24h 13 Mar, 2016 Not-Taking Venlafaxine HCl ER 75 MG TAKE ONE CAPSULE BY MOUTH ONCE KRISTIAN Y WITH FOOD 30 Active Victoza 18 MG/3ML Subcutaneous Once a day 0.6 24h Active Levothyroxine Sodium 75 mcg Orally Once a day on an em pty stomach with a full glass of water 1 tablet 30 days Active Omeprazole 20 MG TAKE ONE CAPSULE BY MOUTH TWICE DAILY 30 Active Lomotil 2.5-0.025 MG Orally Four times a day 1 tablet as needed 6h Feb, Not-Taking MetFORMIN HCl ER 500 mg Orally twice a day 2 tablets 12h 30 days Active Levemir FlexTouch 100 UNIT/ML INJECT 120 UNITS SUBCUTANEOUSLY TWICE DAILY (MUST KEEP APPOINTMENT ON 11/08 FOR REFILLS) 18 Not-Taking Zyrtec Allergy 10 MG Orally Once a day as directed 24h Dec, Not-Taking NovoLog Flexpen 100 UNIT/ML Subcutaneous 3 times a day wit meals 20 units Jan, Active Cyclobenzaprine HCl 10 mg Orally Three times a day 1 tablet 8h 12 M 2015 Not-Taking RESULTS No Results PROCEDURES No Known procedures [...]
--- OUTSIDE RECORDS SUMMARY | 2020-06-13 16:36 | XMS REPORT ---
Author Author Jah GIBBS Organization [facility] [place] Address [address] [place] [address] Care Team Providers Care Manager Global Name Role Phone SILVERIO GIBBSNETTE Unavailable PROBLEMS Type Condition ICD9-CM Code [id number] Code Onset Dates Condition S tatus SNOMED Code Problem Overactive bladder N32.81 Active 2 51597396 Problem Gastroesophageal reflux disease without esophagitis K21.9 Active 861547575 Problem Mixed hyperlipidemia E78.2 Active 800494438 Problem Type 2 diabetes mellitus without complications E11 .9 Active 186428809 Problem nursing home current use of insulin Z79.4 Active 200714357 Problem Irritable bowel syndrome with diarrhea K58.0 Active 697825463 Problem Functional diarrhea K59.1 Active 86954369 Problem Diabetes mellitus E11.9 Active 73 525008 Problem Gastroesophageal reflux disease with esophagitis K 21.0 Active 502979809 Problem Chronic pain G89.29 Active 7782097 1 Problem Insomnia G47.00 Active 065237088 Problem HTN (hypertension) I10 Active 3 2864934 Problem Neuropathy G62.9 Active 429746630 Problem Depression F32.9 Active 50762286 Problem Hypothyroid E03.9 Active 48035437 Problem GERD (gastroesophageal reflux disease) K21.9 Active 527776094 ALLERGIES Substance Reaction Event Type Date Status Trilipix nausea Drug Allergy Dec, Active Niacin rash Drug Allergy Dec, Active Metformin HCl diarrhea Drug Allergy Dec, Active Januvia diarrhea Drug Allergy Dec, Active Gemfibrozil diarrhea Drug Allergy Dec, Active Actos diarrhea Drug Allergy Dec, Active SOCIAL HISTORY Never Assessed PLAN OF CARE Activity Details Follow Up 4 Weeks Reason:htn, diabetes VITAL SIGNS Height 69 in 2016-12-26 Weight 184.8 lbs 2016-12-26 Temperature 97.6 degrees Fahrenheit 2016-12-26 Heart Rate 86 bpm 2016-12-26 Respiratory Rate 20 2016-12-26 BMI 27.29 kg/m2 2016-12-26 Blood pressure systolic 128 mmHg 2016-12-26 Blood pressure diastolic 74 mmHg 2016-12-26 MEDICATIONS Medication Instructions Dosage Frequency Start Date End Date Duration S gato Levothyroxine Sodium 125 MCG TAKE ONE TABLET BY MOUTH DAILY 30 Active Tramadol HCl 50 mg Orally every 6 hrs 1 tablet as needed 6h 30 Oct, 2016 28 days Active Cyclobenzaprine HCl 10 mg Orally Three times a day 1 tablet 8h 12 M 2015 Active Zyrtec Allergy 10 MG Orally Once a day as directed 24h 12 Dec, 2015 Active Venlafaxine HCl ER 75 MG TAKE ONE CAPSULE BY MOUTH ONCE KRISTIAN Y WITH FOOD 30 Active Viberzi 75 MG Orally Twice a day 1 tablet with food 12h Dec, Active Levemir FlexTouch 100 unit/mL (3 mL) Subcutaneous 2 ti mes a day MUST KEEP APPT 11/08 FOR REFILLS 120units bid Jan, Act roby Proventil HFA 108 (90 Base) MCG/ACT Inhalation every 4 hrs 2 puffs as needed 4h May, Active Tramadol HCl 50 mg Orally 4 times a day TAKE ONE TABLET BY MOUTH EVERY 4 HOURS NEEDED 6h Active Oxybutynin Chloride 5 mg Orally Twice a day 1 tablet 12h Active Lisinopril 20 MG Orally Once a day 1 tablet 24h 30 Active Effexor XR 75 MG Orally Once a day take 1 capsule (75 m g) by oral route once daily with food 24h Jan, Active Omeprazole 20 MG TAKE ONE CAPSULE BY MOUTH TWICE DAILY Active Diphenoxylate-Atropine 2.5-0.025 MG Orally Four times a day 1 ta blet as needed 6h Sep, Active Trilipix 135 MG Orally Once a day 1 capsule 24h March, Active MetFORMIN HCl ER 500 MG Orally 2 times a day 1 tablet with evening phi l 12h Active RESULTS No Results PROCEDURES No Known [...]
--- OUTSIDE RECORDS SUMMARY | 2020-06-13 16:37 | XMS REPORT ---
Author Author Jah GIBBS Organization [facility] Address [address] [place] [address] Care Team Providers Care Editorial Specialist Name Role Phone SILVERIO GIBBSNETTE Unavailable PROBLEMS Type Condition ICD9-CM Code [id number] Code Onset Dates Condition S tatus SNOMED Code Problem Overactive bladder N32.81 Active 2 13948477 Problem Gastroesophageal reflux disease without esophagitis K21.9 Active 892434865 Problem Mixed hyperlipidemia E78.2 Active 185866036 Problem Type 2 diabetes mellitus without complications E11 .9 Active 551505010 Problem [facility] current use of insulin Z79.4 Active 751507319 Problem Irritable bowel syndrome with diarrhea K58.0 Active 175888939 Problem Functional diarrhea K59.1 Active 23060558 Problem Diabetes mellitus E11.9 Active 73 461357 Problem Gastroesophageal reflux disease with esophagitis K 21.0 Active 454134050 Problem Chronic pain G89.29 Active 8016229 1 Problem Insomnia G47.00 Active 440673796 Problem HTN (hypertension) I10 Active 3 8451879 Problem Neuropathy G62.9 Active 032177911 Problem Depression F32.9 Active 17687350 Problem Hypothyroid E03.9 Active 49228135 Problem GERD (gastroesophageal reflux disease) K21.9 Active 574174927 ALLERGIES No Information SOCIAL HISTORY Never Assessed PLAN OF CARE VITAL SIGNS MEDICATIONS Medication Instructions Dosage Frequency Start Date End Date Duration S tatus Alosetron HCl 0.5 MG Orally Twice a day 1 tablet 12h 27 Dec, Jan, 30 day(s) Active RESULTS No Results [...]
--- OUTSIDE RECORDS SUMMARY | 2020-06-13 16:37 | XMS REPORT ---
Author Author Jah GIBBS Organization [facility] Address [address] [place] [address] Care Team Providers [employer] Name Role Phone SILVERIO GIBBSNETTE Unavailable PROBLEMS Type Condition ICD9-CM Code UIV55-SC Code Onset Dates Condition S tatus SNOMED Code Problem Functional diarrhea K59.1 Active 01694830 Problem Gastroesophageal reflux disease with esophagitis K 21.0 Active 769291133 Problem Gastroesophageal reflux disease without esophagitis K21.9 Active 511315954 Problem Essential (primary) hypertension I10 Active 66784690 Problem Type 2 diabetes mellitus with hyperglycemia E11.65 Active 69240106 Problem Diabetes mellitus E11.9 Active 73 285308 Problem Irritable bowel syndrome with diarrhea K58.0 Active 820615231 Problem Type 2 diabetes mellitus without complications E11 .9 Active 010434491 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
--- OUTSIDE RECORDS SUMMARY | 2020-06-13 16:37 | XMS REPORT ---
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 Name Role Phone PARKERSHAYLEE MckeonELE Unavailable PROBLEMS Type Condition ICD9-CM Code PNF57-RC Code Onset Dates Condition S tatus SNOMED Code Problem Gastroesophageal reflux disease with esophagitis K 21.0 Active 089133979 Problem prison current use of insulin Z79.4 Active 696342222 Problem Irritable bowel syndrome with diarrhea K58.0 Active 044240528 Problem Diabetes mellitus E11.9 Active 73 448729 Problem Recurrent major depressive disorder, in partial remission F33.41 Active 45300233 Problem Essential (primary) hypertension I10 Active 38843133 Problem Type 2 diabetes mellitus with hyperglycemia E11.65 Active 76725919 Problem Current non-adherence to medical treatment Z91.19 Active 5733599 Problem Pulmonary emphysema, unspecified emphysema type J4 3.9 Active 99051852 Problem Neuropathy G62.9 Active 108580496 Problem Hypothyroid E03.9 Active 73629489 Problem Thrombocytosis D47.3 Active 56436 09 Problem Overactive bladder N32.81 Active 2 68795931 Problem Chronic pain G89.29 Active 9225783 1 Problem Mixed hyperlipidemia E78.2 Active 826073635 ALLERGIES No Information ENCOUNTERS Encounter Location Date Diagnosis [facility] [address] [facility] [id number] [address] [place] [address] March, [facility] [address] [facility] [id number] [address] [place] [address] March, Hypothyroid E03.9 [facility] [address] [facility] [id number] [address] [place] [address] March, Diabetes mellitus E11.9 and Hypothyroid E03.9 [facility] [address] [facility] [id number] [address] [place] [address] March, Diabetes mellitus E11.9 [place] [address] [place] [id number] [address] [place] [address] March, Hypothyroid E03.9 and Elevat ed liver enzymes R74.8 [place] [address] [place] [id number] [address] [place] [address] March, Type 2 diabetes mellitus wit h [...] major depressive disorder, in partial remission F33.41 [place] [address] [place] [id number] [address] [place] [address] Feb, Chronic pain G89.29 [place] [address] [address] Feb, Type 2 diabetes mellitus wit h hyperglycemia E11.65 and Skin lesion of scalp L98.9 [place] [id number] [address] [place] [address] Feb, [place] [address] [place] [id number] [address] [place] [address] Jan, Type 2 diabetes mellitus wit h [...] and Irritable bowel syndrome with diarrhea K58.0 [place] [address] [place] [id number] [address] [place] [address] Jan, [place] [address] [place] [id number] [address] [place] [address] Jan, Controlled substance agreeme nt signed Z79.899 [place] [address] [facility] [id number] [address] [place] [address] 08 Dec, 2017 Type 2 diabetes mellitus [...] treatment Z91.19 and Overweight (BMI 25.0-29.9) E66.3 [place] [address] [place] [id number] [address] [place] [address] 02 Dec, 2017 Controlled substance agreeme nt signed Z79.899 [place] [address] [facility] [id number] [address] [place] [address] Nov, Type 2 diabetes mellitus wit h hyperglycemia E11.65 and Current non- adherence to medical treatment Z91.19 [place] [address] [place] [id number] [address] [place] [address] Nov, [place] [address] [place] [id number] [address] [place] [address] Nov, Chronic pain G89.29 [place] [address] [facility] [id number] [address] [place] [address] Nov, [place] [address] [facility] [id number] [address] [place] [address] Nov, Hypothyroid E03.9 [place] [address] [facility] [id number] [address] [place] [address] Nov, Hypothyroid E03.9 [place] [address] [facility] [id number] [address] [place] [address] Nov, Pulmonary emphysema, unspeci fied emphysema type J43.9 and Irritable bowel syndrome with diarrhea K58.0 [place] [address] [facility] [id number] [address] [place] [address] Oct, [place] [address] [facility] [id number] [address] [place] [address] Oct, [place] [address] [facility] [id number] [address] [place] [address] Oct, [place] [address] [facility] [id number] [address] [place] [address] Oct, [place] [address] [facility] [id number] [address] [place] [address] Oct, Chronic pain G89.29 [place] [address] [place] [id number] [address] [place] [address] Oct, Diabetes mellitus E11.9 ; De pression F32.9 ; Mixed hyperlipidemia E78.2 ; Hypotension, unspecified hypotension type I95.9 ; Pulmonary emphysema, unspecified emphysema type J43.9 and Weight loss, unintentional R63.4 [place] [address] [place] [id number] [address] [place] [address] Oct, Chronic pain G89.29 [place] [address] [place] [id number] [address] [place] [address] Sep, Chronic pain G89.29 [place] [address] [place] [id number] [address] [place] [address] Sep, Hypothyroid E03.9 and Diabet es mellitus E11.9 [place] [address] [facility] [id number] [address] [place] [address] Aug, Type 2 diabetes mellitus wit h hyperglycemia E11.65 ; 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 ; Essential (primary) hypertension I10 ; Hypothyroid E03.9 ; Neuropathy G62.9 ; Chronic pain G89.29 ; Mixed hy perlipidemia E78.2 and Encounter for immunization Z23 [place] [address] [facility] [id number] [address] [place] [address] Aug, Chronic pain G89.29 [facility] [address] [facility] [id number] [address] [place] [address] Aug, Overactive bladder N32.81 ; Diabetes mellitus E11.9 and Chronic pain G89.29 [facility] [address] [facility] [id number] [address] [place] [address] Jul, [facility] [address] [facility] [id number] [address] [place] [address] Jun, [facility] [address] [place] [id number] [address] [place] [address] Jun, [facility] [address] [place] [id number] [place] [address] Jun, Hypothyroid E03.9 [facility] [address] [place] [id number] [place] [address] Jun, Diabetes mellitus E11.9 ; Hy pothyroid E03.9 ; Neuropathy G62.9 ; Chronic pain G89.29 and Neck mass R22.1 [facility] [address] [place] [id number] [address] [place] [address] Apr, [facility] [address] [place] [id number] [address] [place] [address] Apr, Acute cystitis without hemat uria N30.00 [facility] [address] [facility] [id number] [address] [place] [address] March, [facility] [address] [place] [id number] [address] [place] [address] March, [facility] [address] [place] [id number] [address] [place] [address] March, Near syncope R55 [facility] [address] [place] [id number] [address] [place] [address] Feb, [facility] [address] [place] [id number] [address] [place] [address] Feb, Chronic pain G89.29 [facility] [address] [facility] [id number] [address] [place] [address] Feb, [facility] [address] [facility] [id number] [address] [place] [address] Feb, [facility] [address] [facility] [id number] [address] [place] [address] Jan, Chronic pain G89.29 [facility] [address] [facility] [id number] [address] [place] [address] Jan, [facility] [address] [address] Jan, [facility] [address] [facility] [id number] [address] [place] [address] Jan, Diabetes mellitus E11.9 ; Hy pothyroid E03.9 ; GERD (gastroesophageal reflux disease) K21.9 ; Insomnia G47.00 ; Functional diarrhea K59.1 ; Neuropathy G62.9 ; Depression F32.9 ; Chronic pain G89.29 ; Irritable bowel syndrome with diarrhea K58.0 ; Overactive bladder N32.81 ; Mixed hyperlipidemia E78.2 and Bronchitis J40 [facility] [address] [facility] [id number] [address] [place] [address] Dec, [facility] [address] [facility] [id number] [address] [place] [address] Dec, [facility] [address] [facility] [id number] [address] [place] [address] Dec, [facility] [address] [facility] [id number] [address] [place] [address] Dec, [facility] [address] [facility] [id number] [address] [place] [address] Dec, Chronic pain G89.29 [facility] [address] [facility] [id number] [address] [place] [address] Dec, [facility] [address] [place] [id number] [address] [place] [address] Dec, [facility] [address] [place] [id number] [place] [address] Dec, Type 2 diabetes mellitus wit h foot ulcer E11.621 [facility] [address] [place] [id number] [address] [place] [address] 17 Dec, 2016 Type 2 diabetes mellitus wit h foot ulcer E11.621 [facility] [address] [place] [id number] [address] [place] [address] Dec, HTN (hypertension) I10 ; Dep ression F32.9 ; Type 2 diabetes mellitus with foot ulcer E11.621 ; Functional diarrhea K59.1 ; Irritable bowel syndrome with diarrhea K58.0 ; Chronic pain G89.29 ; Insomnia G47.00 ; Overactive bladder N32.81 ; Mixed hyperlipidemia E78.2 ; Gastroesophageal reflux disease with esophagitis K21.0 and Acquired hypothyroidism E03.9 [place] [address] [address] Nov, [place] [address] [address] Oct, [place] [address] [address] Oct, [place] [address] [place] [id number] [address] [place] [address] Oct, [place] [address] [place] [id number] [address] [place] [address] Sep, Functional diarrhea K59.1 ; HTN (hypertension) I10 ; Diabetes mellitus E11.9 ; Depression F32.9 ; Overactive bladder N32.81 ; Mixed hyperlipidemia E78.2 ; Gastroesophageal reflux disease without esophagitis K21.9 ; Chronic pain G89.29 ; Insomnia G47.00 and Acquired hypothyroidism E03.9 [place] [address] [address] 04 Sep, 2016 [place] [address] [address] 11 Aug, 2016 Encounter for immunization Z 23 [place] [address] [address] 06 Aug, 2016 [place] [address] [address] 09 Jul, 2016 [place] [address] [address] Jun, Type 2 diabetes mellitus wit hout complications E11.9 ; HTN (hypertension) I10 ; Hypothyroid E03.9 ; Neuropathy G62.9 ; Depression F32.9 ; Chronic pain G89.29 ; GERD (gastroesophageal reflux disease) K21.9 ; Insomnia G47.00 ; Overactive bladder N32.81 ; Mixed hyperlipidemia E78.2 ; Diarrhea of infectious origin A09 and Environmental allergies Z91.09 [place] [address] [address] Apr, [place] [address] [address] March, Hypothyroidism, unspecified E03.9 and Mixed hyperlipidemia E78.2 [place] [address] [address] March, Diabetes mellitus E11.9 ; HT N (hypertension) I10 ; Hypothyroid E03.9 ; Depression F32.9 ; Overactive bladder N32.81 ; Other chronic pain G89.29 ; Lumbago with sciatica, unspecified side M54.40 ; Environmental allergies Z91.09 and Gastroesophageal reflux disease, esophagitis presence not specified K21.9 [place] [address] [address] March, [place] [address] [address] Jan, HTN (hypertension) I10 ; Hyp othyroid E03.9 ; Neuropathy G62.9 ; Diabetes mellitus E11.9 ; Chronic pain G89.29 ; GERD (gastroesophageal reflux disease) K21.9 ; Overactive bladder N32.81 and Depression F32.9 [facility] [address] [facility] [id number] [address] [place] [address] 12 Dec, 2015 Ear pain, left H92.02 ; HTN (hypertension) I10 ; Hypothyroid E03.9 ; Neuropathy G62.9 ; Diabetes mellitus E11.9 ; Depression F32.9 ; GERD (gastroesophageal reflux disease) K21.9 ; Insomnia G47.00 and Overactive bladder N32.81 [place] [address] [place] [address] Nov, Overactive bladder N32.81 an d Chronic pain G89.29 [place] [address] [place] [id number] [address] [place] [address] Nov, Kidney failure N19 [place] [address] [place] [id number] [address] [place] [address] Nov, [place] [address] [place] [address] Nov, [place] [address] [place] [id number] [address] [place] [address] Nov, Diabetes mellitus E11.9 ; De pression F32.9 ; Chronic pain G89.29 ; GERD (gastroesophageal reflux disease) K21.9 ; Insomnia G47.00 ; HTN (hypertension) I10 ; Hypothyroid E03.9 ; COPD (chronic obstructive pulmonary disease) J44.9 ; Bladder incontinence R32 and Incontinence R32 [place] [address] [place] [id number] [address] [place] [address] Sep, Type 2 diabetes mellitus wit h foot ulcer E11.621 and Chromosomal abnormality, 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 [facility] [address] [place] [id number] [address] [place] [address] Sep, [place] [address] [address] Aug, [place] [address] [address] Aug, [place] [address] [address] Aug, HTN (hypertension) I10 ; Enc ounter for immunization Z23 ; Hypothyroid E03.9 ; Neuropathy G62.9 ; Diabetes mellitus E11.9 ; Depression F32.9 ; Chronic pain G89.29 ; GERD (gastroesophageal reflux disease) K21.9 ; Insomnia G47.00 and COPD (chronic obstructive pulmonary disease) J44.[address] [address] Jun, [address] [address] Jun, [address] [address] May, Essential hypertension, ivis gn 401.1 ; Unspecified hypothyroidism 244.9 ; Insomnia, unspecified 780.52 ; Shortness of breath 786.05 ; Depression 311 ; COPD (chronic obstructive pulmonary disease) 496 ; GERD (gastroesophageal reflux disease) 530.81 and Diabetes 1.5, 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 [address] May, [address] [address] May, [place] [address] [address] May, Shortness of breath 786.05 ; Essential hypertension, benign 401.1 ; Diabetes mellitus 250.00 ; Hyperlipidemia 272.4 ; Hypothyroid 244.9 ; Insomnia 780.52 and Cough 786.[address] [address] Apr, [place] [address] [id number] [address] [place] [address] March, Shortness of breath 786.05 ; Nausea with vomiting 787.01 ; Essential hypertension, benign 401.1 ; Diabetes mellitus 250.00 ; Hyperlipidemia 272.4 and Hypothyroid 244.9 [facility] [address] [id number] [address] [place] [address] Feb, [facility] [address] [id number] [address] [place] [address] Feb, [facility] [address] [id number] [address] [place] [address] Jan, [facility] [address] [id number] [address] [place] [address] Jan, [facility] [address] [facility] [id number] [address] [place] [address] Jan, [facility] [address] [id number] [address] [place] [address] Jan, [facility] [address] [facility] [id number] [address] [place] [address] Jan, [facility] [address] [facility] [id number] [address] [place] [address] Jan, [facility] [address] [facility] [id number] [address] [place] [address] Jan, [facility] [address] [id number] [address] [place] [address] Jan, [facility] [address] [id number] [address] [place] [address] Jan, [facility] [address] [id number] [address] [place] [address] Jan, [facility] [address] [facility] [id number] [address] [place] [address] Dec, [facility] [address] [id number] [address] [place] [address] Dec, 2014 [facility] [address] [id number] [address] [place] [address], [place] [address] Dec, 2014 [facility] [address] [id number] [address] [place] [address], [place] [address] Dec, 2014 [facility] [address] [id number] [address] [place] [address], [place] [address] Dec, 2014 [facility] [address] [id number] [address] [place] [address], [place] [address] Dec, 2014 [facility] [address] [id number] [address] [place] [address], [place] [address] Dec, 2014 [facility] [address] [id number] [address] [place] [address], [place] [address] Dec, 2014 [facility] [address] [id number] [address] [place] [address], [place] [address] Dec, 2014 [facility] [address] [id number] [address] [place] [address], [place] [address] Dec, 2014 [facility] [address] [id number] [address] [place] [address], [place] [address] Oct, [facility] [address] [id number] [address] [place] [address], [place] [address] Oct, [facility] [address] [id number] [address] [place] [address], [place] [address] Oct, [facility] [address] [id number] [address] [place] [address], [place] [address] Oct, [facility] [address] [id number] [address] [place] [address], [place] [address] Oct, [facility] [address] [id number] [address] [place] [address], [place] [address] Oct, [facility] [address] [id number] [address] [place] [address], [place] [address] Oct, [facility] [address] [id number] [address] [place] [address], [place] [address] 05 Oct, 2014 [facility] [address] [id number] [address] [place] [address], [place] [address] Oct, [facility] [address] [id number] [address] [place] [address], [place] [address] Oct, [facility] [address] [id number] [address] [place] [address], [place] [address] Oct, [facility] [address] [id number] [address] [place] [address], [place] [address] Oct, [facility] [address] [id number] [address] [place] [address], [place] [address] Oct, [facility] [address] [id number] [address] [place] [address], [place] [address] Oct, [facility] [address] [id number] [address] [place] [address], [place] [address] Sep, [facility] [address] [id number] [address] [place] [address], [place] [address] Sep, [facility] [address] [id number] [address] [place] [address], [place] [address] Sep, [facility] [address] [id number] [address] [place] [address], [place] [address] Sep, [facility] [address] [id number] [address] [place] [address], [place] [address] Sep, [facility] [address] [id number] [address] [place] [address], [place] [address] Sep, [facility] [address] [id number] [address] [place] [address], [place] [address] Sep, [facility] [address] [id number] [address] [place] [address], [place] [address] Sep, [facility] [address] [id number] [address] [place] [address], [place] [address] Sep, [facility] [address] [id number] [address] [place] [address], [place] [address] Aug, [facility] [address] [id number] [address] [place] [address], [place] [address] 20 Aug, 2014 [facility] [address] [id number] [address] [place] [address], [place] [address] 17 Aug, 2014 [facility] [address] [id number] [address] [place] [address], [place] [address] 17 Aug, 2014 [facility] [address] [id number] [address] [place] [address], [place] [address] 16 Aug, 2014 [facility] [address] [id number] [address] [place] [address], [place] [address] Aug, [facility] [address] [id number] [address] [place] [address], [place] [address] Aug, [facility] [address] [id number] [address] [place] [address], [place] [address] Aug, [facility] [address] [id number] [address] [place] [address], [place] [address] Aug, [facility] [address] [id number] [address] [place] [address], [place] [address] 29 Jul, 2013 [facility] [address] [id number] [address] [place] [address], [place] [address] 29 Sep, 2013 [facility] [address] [id number] [address] [place] [address], [place] [address] 25 Jul, 2013 [facility] [address] [id number] [address] [place] [address], [place] [address] 25 Jul, 2013 [facility] [address] [id number] [address] [place] [address], [place] [address] 25 Jul, 2013 [facility] [address] [id number] [address] [place] [address], [place] [address] 25 Jul, 2013 [facility] [address] [id number] [facility] [place] [address] Jul, [facility] [address] [id number] [facility] [place] [address] Jul, [facility] [address] [id number] [facility] [place] [address] Jul, [facility] [address] [id number] [address] [place] [address] Jul, [facility] [address] [id number] [facility] [place] [address] Jun, [facility] [address] [id number] [address] [place] [address], [place] [address] Jun, [facility] [address] [id number] [address] [place] [address], [place] [address] Jun, [facility] [address] [id number] [address] [place] [address], [place] [address] Jun, [facility] [address] [id number] [address] [place] [address], [place] [address] Jun, [facility] [address] [id number] [address] [place] [address], [place] [address] Jun, [facility] [address] [id number] [address] [place] [address], [place] [address] Jun, [facility] [address] [id number] [address] [place] [address], [place] [address] Jun, [facility] [address] [id number] [address] [place] [address], [place] [address] Jun, [facility] [address] [id number] [address] [place] [address], [place] [address] Jun, [facility] [address] [id number] [address] [place] [address], [place] [address] Jun, [facility] [address] [id number] [address] [place] [address], [place] [address] Jun, [facility] [address] [id number] [facility] [place] [address] May, [facility] [address] [id number] [address] [place] [address], [place] [address] May, [facility] [address] [id number] [address] [place] [address], [place] [address] May, [facility] [address] [id number] [address] [place] [address], [place] [address] May, [facility] [address] [id number] [address] [place] [address], [place] [address] May, [facility] [address] [id number] [address] [place] [address], [place] [address] May, [facility] [address] [id number] [address] [place] [address], [place] [address] March, [facility] [address] [id number] [address] [place] [address], [place] [address] March, [facility] [address] [id number] [address] [place] [address], [place] [address] March, [facility] [address] [id number] [address] [place] [address], [place] [address] March, [facility] [address] [id number] [address] [place] [address], [place] [address] March, [facility] [address] [id number] [address] [place] [address], [place] [address] March, [facility] [address] [id number] [address] [place] [address], [place] [address] Feb, [facility] [address] [id number] [address] [place] [address], [place] [address] Feb, [facility] [address] [id number] [address] [place] [address], [place] [address] Feb, [facility] [address] [id number] [facility] [place] [address] Feb, [facility] [address] [id number] [address] [place] [address], [place] [address] Jan, [facility] [address] [id number] [facility] [place] [address] Jan, [facility] [address] [id number] [address] [place] [address], [place] [address] Jan, [facility] [address] [id number] [address] [place] [address], [place] [address] Jan, [facility] [address] [id number] [address] [place] [address], [place] [address] Jan, [facility] [address] [id number] [address] [place] [address], [place] [address] Jan, [facility] [address] [id number] [address] [place] [address], [place] [address] Jan, [facility] [address] [id number] [address] [place] [address], [place] [address] Jan, [facility] [address] [id number] [address] [place] [address], [place] [address] Jan, [facility] [address] [id number] [address] [place] [address], [place] [address] Jan, [facility] [address] [id number] [address] [place] [address], [place] [address] Jan, [facility] [address] [id number] [address] [place] [address], [place] [address] Jan, [facility] [address] [id number] [address] [place] [address], [place] [address] Dec, [facility] [address] [id number] [address] [place] [address], [place] [address] Dec, [facility] [address] [id number] [address] [place] [address], [place] [address] Dec, [facility] [address] [id number] [address] [place] [address], [place] [address] Dec, [facility] [address] [id number] [address] [place] [address], [place] [address] Dec, [facility] [address] [id number] [address] [place] [address], [place] [address] Dec, [facility] [address] [id number] [address] [place] [address], [place] [address] Nov, [facility] [address] [id number] [address] [place] [address], [place] [address] Nov, [facility] [address] [id number] [address] [place] [address], [place] [address] Oct, [facility] [address] [id number] [address] [place] [address], [place] [address] Oct, [facility] [address] [id number] [address] [place] [address], [place] [address] Oct, [facility] [address] [id number] [address] [place] [address], [place] [address] Oct, [facility] [address] [id number] [address] [place] [address], [place] [address] Oct, [facility] [address] [id number] [address] [place] [address], [place] [address] Oct, [facility] [address] [id number] [address] [place] [address] Sep, [facility] [address] [id number] [address] [place] [address], [place] [address] Sep, [facility] [address] [id number] [address] [place] [address], [place] [address] Sep, [facility] [address] [id number] [address] [place] [address], [place] [address] Sep, [facility] [address] [id number] [address] [place] [address], [place] [address] Aug, [facility] [address] [id number] [address] [place] [address], [place] [address] Aug, [facility] [address] [id number] [address] [place] [address], [place] [address] Aug, [facility] [address] [id number] [address] [place] [address], [place] [address] 17 Jul, 2013 [facility] [address] [id number] [address] [place] [address], [place] [address] 14 Jul, 2013 [facility] [address] [id number] [address] [place] [address], [place] [address] Jul, [facility] [address] [id number] [address] [place] [address], [place] [address] Jun, [facility] [address] [id number] [address] [place] [address], [place] [address] Jun, [facility] [address] [id number] [address] [place] [address], [place] [address] Jun, [facility] [address] [id number] [address] [place] [address], [place] [address] Apr, [facility] [address] [id number] [address] [place] [address], [place] [address] Apr, [facility] [address] [id number] [address] [place] [address], [place] [address] March, [facility] [address] [id number] [address] [place] [address], [place] [address] March, [facility] [address] [id number] [address] [place] [address], [place] [address] March, [facility] [address] [id number] [address] [place] [address], [place] [address] March, [facility] [address] [id number] [address] [place] [address], [place] [address] Feb, [facility] [address] [id number] [address] [place] [address], [place] [address] Jan, [facility] [address] [id number] [address] [place] [address], [place] [address] 13 Dec, 2012 [facility] [address] [id number] [address] [place] [address], [place] [address] 08 Dec, 2012 [facility] [address] [id number] [address] [place] [address], [place] [address] 07 Dec, 2012 [facility] [address] [id number] [address] [place] [address], [place] [address] Nov, [facility] [address] [id number] [address] [place] [address], [place] [address] Oct, [facility] [address] [id number] [address] [place] [address], [place] [address] Oct, [facility] [address] [id number] [address] [place] [address], [place] [address] Sep, [facility] [address] [id number] [address] [place] [address], [place] [address] Sep, [facility] [address] [id number] [address] [place] [address], [place] [address] Sep, [facility] [address] [id number] [address] [place] [address], [place] [address] Sep, [facility] [address] [id number] [address] [place] [address] Sep, [facility] [address] [id number] [address] [place] [address], [place] [address] Sep, [facility] [address] [id number] [address] [place] [address], [place] [address] Sep, [facility] [address] [id number] [address] [place] [address], [place] [address] 16 Aug, 2012 [facility] [address] [id number] [address] [place] [address] 16 Aug, 2012 [facility] [address] [id number] [address] [place] [address], [place] [address] 10 Aug, 2012 [facility] [address] [id number] [address] [place] [address], [place] [address] 10 Aug, 2012 [facility] [address] [id number] [address] [place] [address], [place] [address] 08 Aug, 2012 [facility] [address] [id number] [address] [place] [address], [place] [address] 08 Aug, 2012 [facility] [address] [id number] [address] [place] [address], [place] [address] Aug, [facility] [address] [id number] [address] [place] [address], [place] [address] Aug, [facility] [address] [id number] [address] [place] [address], [place] [address] Jul, [facility] [address] [id number] [address] [place] [address], [place] [address] Jul, [facility] [address] [id number] [address] [place] [address], [place] [address] Jun, [facility] [address] [id number] [address] [place] [address], [place] [address] May, [facility] [address] [id number] [address] [place] [address], [place] [address] Apr, [facility] [address] [id number] [address] [place] [address], [place] [address] Apr, [facility] [address] [id number] [address] [place] [address], [place] [address] Apr, [facility] [address] [id number] [address] [place] [address], [place] [address] March, [facility] [address] [id number] [address] [place] [address], [place] [address] March, [facility] [address] [id number] [address] [place] [address], [place] [address] March, [facility] [address] [id number] [address] [place] [address], [place] [address] March, [facility] [address] [id number] [address] [place] [address], [place] [address] March, [facility] [address] [id number] [address] [place] [address], [place] [address] March, [facility] [address] [id number] [address] [place] [address], [place] [address] March, [facility] [address] [id number] [address] [place] [address], [place] [address] Jan, [facility] [address] [id number] [address] [place] [address], [place] [address] Jan, [facility] [address] [id number] [address] [place] [address], [place] [address] Jan, [facility] [address] [id number] [address] [place] [address], [place] [address] Jan, [facility] [address] [id number] [address] [place] [address], [place] [address] Jan, [facility] [address] [id number] [address] [place] [address], [place] [address] Dec, [facility] [address] [id number] [address] [place] [address], [place] [address] Dec, [facility] [address] [id number] [address] [place] [address], [place] [address] Nov, [facility] [address] [id number] [address] [place] [address], [place] [address] Nov, [facility] [address] [id number] [address] [place] [address], [place] [address] Nov, [facility] [address] [id number] [address] [place] [address] [address] 05 Nov, 2011 [facility] [address] [id number] [address] [place] [address], [place] [address] 21 Oct, 2011 [facility] [address] [id number] [address] [place] [address], [place] [address] 06 Oct, 2011 [facility] [address] [id number] [address] [place] [address], [place] [address] 14 Sep, 2011 [facility] [address] [id number] [address] [place] [address], [place] [address] 10 Sep, 2011 [facility] [address] [id number] [address] [place] [address], [place] [address] 10 Sep, 2011 [facility] [address] [id number] [address] [place] [address], [place] [address] 11 May, 2011 [facility] [address] [id number] [address] [place] [address], [place] [address] 20 Nov, 2010 [facility] [address] [id number] [address] [place] [address], [place] [address] 29 Oct, 2010 [facility] [address] [id number] [address] [place] [address], [place] [address] 14 Oct, 2010 [facility] [address] [id number] [address] [place] [address], [place] [address] 08 Oct, 2010 [facility] [address] [id number] [address] [place] [address], [place] [address] 15 Sep, 2010 [facility] [address] [id number] [address] [place] [address], [place] [address] Sep, [facility] [address] [id number] [address] [place] [address], [place] [address] Aug, [facility] [address] [id number] [address] [place] [address], [place] [address] March, [facility] [address] [id number] [address] [place] [address], [place] [address] 17 Oct, 2009 [facility] [address] [id number] [address] [place] [address] Oct, [facility] [address] [id number] [address] [place] [address] Oct, [facility] [address] [id number] [address] [place] [address] Oct, [facility] [address] [id number] [address] [place] [address] Sep, [facility] [address] [id number] [address] [place] [address] Sep, [facility] [address] [id number] [address] [place] [address] Sep, [facility] [address] [id number] [address] [place] [address] Aug, [facility] [address] [id number] [address] [place] [address] Aug, [facility] [address] [id number] [address] [place] [address] Aug, [facility] [address] [id number] [address] [place] [address] Jan, IMMUNIZATIONS No Known Immunizations SOCIAL HISTORY Never Assessed REASON FOR VISIT Controlled Med Refill PLAN OF CARE VITAL SIGNS MEDICATIONS Medication Instructions Dosage Frequency Start Date End Date Duration S tatus Tramadol HCl 50 mg Orally 4 times a day TAKE ONE TABLET BY MOUTH EVERY 6 hours as needed 6h 28 days Active RESULTS No Results PROCEDURES [...]
--- OUTSIDE RECORDS SUMMARY | 2020-06-13 16:37 | XMS REPORT ---
Author Author Jah PARKER Organization [facility] Address [address] [place] [address] Care Team Providers Care Internal Audit Consultant Name Role Phone PARKERSHAYLEE MckeonELE Unavailable PROBLEMS Type Condition ICD9-CM Code SCO52-FY Code Onset Dates Condition S tatus SNOMED Code Problem Gastroesophageal reflux disease with esophagitis K 21.0 Active 871179588 Problem correction current use of insulin Z79.4 Active 025659884 Problem Irritable bowel syndrome with diarrhea K58.0 Active 707013264 Problem Diabetes mellitus E11.9 Active 73 544150 Problem Recurrent major depressive disorder, in partial remission F33.41 Active 03193833 Problem Essential (primary) hypertension I10 Active 68095095 Problem Type 2 diabetes mellitus with hyperglycemia E11.65 Active 91551407 Problem Current non-adherence to medical treatment Z91.19 Active 9838759 Problem Pulmonary emphysema, unspecified emphysema type J4 3.9 Active 67109813 Problem Neuropathy G62.9 Active 371504786 Problem Hypothyroid E03.9 Active 42745151 Problem Thrombocytosis D47.3 Active 34551 09 Problem Overactive bladder N32.81 Active 2 05193713 Problem Chronic pain G89.29 Active 9214170 1 Problem Mixed hyperlipidemia E78.2 Active 252802846 ALLERGIES No Information ENCOUNTERS Encounter Location Date Diagnosis [facility] [address] [facility] [id number] [address] [place] [phone] March, [facility] [address] [facility] [id number] [address] [place] [phone] March, Hypothyroid E03.9 [facility] [address] [facility] [id number] [address] [place] [address] March, Diabetes mellitus E11.9 and Hypothyroid E03.9 [facility] [address] [facility] [id number] [address] [place] [phone] March, Diabetes mellitus E11.9 [place] [address] [place] [id number] [address] [place] [address] March, Hypothyroid E03.9 and Elevat ed liver enzymes R74.8 [place] [address] [place] [id number] [address] [place] [address] March, Type 2 diabetes mellitus wit h [...] major depressive disorder, in partial remission F33.41 [place] [address] [place] [id number] [address] [place] [address] Feb, Chronic pain G89.29 [place] [address] [address] Feb, Type 2 diabetes mellitus wit h hyperglycemia E11.65 and Skin lesion of scalp L98.9 [place] [id number] [address] [place] [address] Feb, [place] [address] [place] [id number] [address] [place] [address] Jan, Type 2 diabetes mellitus wit h [...] and Irritable bowel syndrome with diarrhea K58.0 [place] [address] [place] [id number] [address] [place] [phone] Jan, [place] [address] [place] [id number] [address] [place] [address] Jan, Controlled substance agreeme nt signed Z79.899 [place] [address] [facility] [id number] [address] [place] [phone] 08 Dec, 2017 Type 2 diabetes mellitus [...] treatment Z91.19 and Overweight (BMI 25.0-29.9) E66.3 [place] [address] [place] [id number] [address] [place] [phone] 02 Dec, 2017 Controlled substance agreeme nt signed Z79.899 [place] [address] [facility] [id number] [address] [place] [address] Nov, Type 2 diabetes mellitus wit h hyperglycemia E11.65 and Current non- adherence to medical treatment Z91.19 [place] [address] [place] [id number] [address] [place] [phone] Nov, [place] [address] [place] [id number] [address] [place] [address] Nov, Chronic pain G89.29 [place] [address] [facility] [id number] [address] [place] [phone] Nov, [place] [address] [facility] [id number] [address] [place] [phone] Nov, Hypothyroid E03.9 [place] [address] [facility] [id number] [address] [place] [address] Nov, Hypothyroid E03.9 [place] [address] [facility] [id number] [address] [place] [address] Nov, Pulmonary emphysema, unspeci fied emphysema type J43.9 and Irritable bowel syndrome with diarrhea K58.0 [place] [address] [facility] [id number] [address] [place] [address] Oct, [place] [address] [facility] [id number] [address] [place] [address] Oct, [place] [address] [facility] [id number] [address] [place] [phone] Oct, [place] [address] [facility] [id number] [address] [place] [address] Oct, [place] [address] [facility] [id number] [address] [place] [address] Oct, Chronic pain G89.29 [place] [address] [place] [id number] [address] [place] [address] Oct, Diabetes mellitus E11.9 ; De pression F32.9 ; Mixed hyperlipidemia E78.2 ; Hypotension, unspecified hypotension type I95.9 ; Pulmonary emphysema, unspecified emphysema type J43.9 and Weight loss, unintentional R63.4 [place] [address] [place] [id number] [address] [place] [address] Oct, Chronic pain G89.29 [place] [address] [place] [id number] [address] [place] [phone] Sep, Chronic pain G89.29 [place] [address] [place] [id number] [address] [place] [address] Sep, Hypothyroid E03.9 and Diabet es mellitus E11.9 [place] [address] [facility] [id number] [address] [place] [address] Aug, Type 2 diabetes mellitus wit h hyperglycemia E11.65 ; 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 ; Essential (primary) hypertension I10 ; Hypothyroid E03.9 ; Neuropathy G62.9 ; Chronic pain G89.29 ; Mixed hy perlipidemia E78.2 and Encounter for immunization Z23 [place] [address] [facility] [id number] [address] [place] [address] Aug, Chronic pain G89.29 [facility] [address] [facility] [id number] [address] [place] [address] Aug, Overactive bladder N32.81 ; Diabetes mellitus E11.9 and Chronic pain G89.29 [facility] [address] [facility] [id number] [address] [place] [phone] Jul, [facility] [address] [facility] [id number] [address] [place] [phone] Jun, [facility] [address] [place] [id number] [address] [place] [address] Jun, [facility] [address] [place] [id number] [place] [address] Jun, Hypothyroid E03.9 [facility] [address] [place] [id number] [place] [address] Jun, Diabetes mellitus E11.9 ; Hy pothyroid E03.9 ; Neuropathy G62.9 ; Chronic pain G89.29 and Neck mass R22.1 [facility] [address] [place] [id number] [address] [place] [address] Apr, [facility] [address] [place] [id number] [address] [place] [address] Apr, Acute cystitis without hemat uria N30.00 [facility] [address] [facility] [id number] [address] [place] [address] March, [facility] [address] [place] [id number] [address] [place] [address] March, [facility] [address] [place] [id number] [address] [place] [phone] March, Near syncope R55 [facility] [address] [place] [id number] [address] [place] [address] Feb, [facility] [address] [place] [id number] [address] [place] [address] Feb, Chronic pain G89.29 [facility] [address] [facility] [id number] [address] [place] [phone] Feb, [facility] [address] [facility] [id number] [address] [place] [address] Feb, [facility] [address] [facility] [id number] [address] [place] [address] Jan, Chronic pain G89.29 [facility] [address] [facility] [id number] [address] [place] [address] Jan, [facility] [address] [address] Jan, [facility] [address] [facility] [id number] [address] [place] [address] Jan, Diabetes mellitus E11.9 ; Hy pothyroid E03.9 ; GERD (gastroesophageal reflux disease) K21.9 ; Insomnia G47.00 ; Functional diarrhea K59.1 ; Neuropathy G62.9 ; Depression F32.9 ; Chronic pain G89.29 ; Irritable bowel syndrome with diarrhea K58.0 ; Overactive bladder N32.81 ; Mixed hyperlipidemia E78.2 and Bronchitis J40 [facility] [address] [facility] [id number] [address] [place] [address] Dec, [facility] [address] [facility] [id number] [address] [place] [address] Dec, [facility] [address] [facility] [id number] [address] [place] [address] Dec, [facility] [address] [facility] [id number] [address] [place] [address] Dec, [facility] [address] [facility] [id number] [address] [place] [address] Dec, Chronic pain G89.29 [facility] [address] [facility] [id number] [address] [place] [address] Dec, [facility] [address] [place] [id number] [address] [place] [address] Dec, [facility] [address] [place] [id number] [place] [address] Dec, Type 2 diabetes mellitus wit h foot ulcer E11.621 [facility] [address] [place] [id number] [address] [place] [phone] 17 Dec, 2016 Type 2 diabetes mellitus wit h foot ulcer E11.621 [facility] [address] [place] [id number] [address] [place] [address] Dec, HTN (hypertension) I10 ; Dep ression F32.9 ; Type 2 diabetes mellitus with foot ulcer E11.621 ; Functional diarrhea K59.1 ; Irritable bowel syndrome with diarrhea K58.0 ; Chronic pain G89.29 ; Insomnia G47.00 ; Overactive bladder N32.81 ; Mixed hyperlipidemia E78.2 ; Gastroesophageal reflux disease with esophagitis K21.0 and Acquired hypothyroidism E03.9 [place] [address] [address] Nov, [place] [address] [address] Oct, [place] [address] [address] Oct, [place] [address] [place] [id number] [address] [place] [address] Oct, [place] [address] [place] [id number] [address] [place] [address] Sep, Functional diarrhea K59.1 ; HTN (hypertension) I10 ; Diabetes mellitus E11.9 ; Depression F32.9 ; Overactive bladder N32.81 ; Mixed hyperlipidemia E78.2 ; Gastroesophageal reflux disease without esophagitis K21.9 ; Chronic pain G89.29 ; Insomnia G47.00 and Acquired hypothyroidism E03.9 [place] [address] [id number] 04 Sep, 2016 [place] [address] [address] 11 Aug, 2016 Encounter for immunization Z 23 [place] [address] [address] 06 Aug, 2016 [place] [address] [address] 09 Jul, 2016 [place] [address] [address] Jun, Type 2 diabetes mellitus wit hout complications E11.9 ; HTN (hypertension) I10 ; Hypothyroid E03.9 ; Neuropathy G62.9 ; Depression F32.9 ; Chronic pain G89.29 ; GERD (gastroesophageal reflux disease) K21.9 ; Insomnia G47.00 ; Overactive bladder N32.81 ; Mixed hyperlipidemia E78.2 ; Diarrhea of infectious origin A09 and Environmental allergies Z91.09 [place] [address] [address] Apr, [place] [address] [address] March, Hypothyroidism, unspecified E03.9 and Mixed hyperlipidemia E78.2 [place] [address] [address] March, Diabetes mellitus E11.9 ; HT N (hypertension) I10 ; Hypothyroid E03.9 ; Depression F32.9 ; Overactive bladder N32.81 ; Other chronic pain G89.29 ; Lumbago with sciatica, unspecified side M54.40 ; Environmental allergies Z91.09 and Gastroesophageal reflux disease, esophagitis presence not specified K21.9 [place] [address] [address] March, [place] [address] [address] Jan, HTN (hypertension) I10 ; Hyp othyroid E03.9 ; Neuropathy G62.9 ; Diabetes mellitus E11.9 ; Chronic pain G89.29 ; GERD (gastroesophageal reflux disease) K21.9 ; Overactive bladder N32.81 and Depression F32.9 [facility] [address] [facility] [id number] [address] [place] [address] 12 Dec, 2015 Ear pain, left H92.02 ; HTN (hypertension) I10 ; Hypothyroid E03.9 ; Neuropathy G62.9 ; Diabetes mellitus E11.9 ; Depression F32.9 ; GERD (gastroesophageal reflux disease) K21.9 ; Insomnia G47.00 and Overactive bladder N32.81 [place] [id number] [place] [address] Nov, Overactive bladder N32.81 an d Chronic pain G89.29 [place] [address] [place] [id number] [address] [place] [address] Nov, Kidney failure N19 [place] [address] [place] [id number] [address] [place] [address] Nov, [place] [id number] [place] [address] Nov, [place] [address] [place] [id number] [address] [place] [address] Nov, Diabetes mellitus E11.9 ; De pression F32.9 ; Chronic pain G89.29 ; GERD (gastroesophageal reflux disease) K21.9 ; Insomnia G47.00 ; HTN (hypertension) I10 ; Hypothyroid E03.9 ; COPD (chronic obstructive pulmonary disease) J44.9 ; Bladder incontinence R32 and Incontinence R32 [place] [address] [place] [id number] [address] [place] [address] Sep, Type 2 diabetes mellitus wit h foot ulcer E11.621 and Chromosomal abnormality, 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 [facility] [address] [place] [id number] [address] [place] [address] Sep, [place] [address] [address] Aug, [place] [address] [address] Aug, [place] [address] [address] Aug, Encounter for immunization Z 23 ; HTN (hypertension) I10 ; Hypothyroid E03.9 ; Neuropathy G62.9 ; Diabetes mellitus E11.9 ; Depression F32.9 ; Chronic pain G89.29 ; GERD (gastroesophageal reflux disease) K21.9 ; Insomnia G47.00 and COPD (chronic obstructive pulmonary disease) J44.[address] [address] Jun, [address] [address] Jun, [address] [address] May, Essential hypertension, ivis gn 401.1 ; Unspecified hypothyroidism 244.9 ; Insomnia, unspecified 780.52 ; Shortness of breath 786.05 ; Depression 311 ; COPD (chronic obstructive pulmonary disease) 496 ; GERD (gastroesophageal reflux disease) 530.81 and Diabetes 1.5, 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 [address] May, [address] [address] May, [address] [address] May, Shortness of breath 786.05 ; Essential hypertension, benign 401.1 ; Diabetes mellitus 250.00 ; Hyperlipidemia 272.4 ; Hypothyroid 244.9 ; Insomnia 780.52 and Cough 786.[address] [address] Apr, [address] [place] [address] March, Shortness of breath 786.05 ; Nausea with vomiting 787.01 ; Essential hypertension, benign 401.1 ; Diabetes mellitus 250.00 ; Hyperlipidemia 272.4 and Hypothyroid 244.9 [facility] [address] [id number] [address] [place] [phone] Feb, [facility] [address] [id number] [address] [place] [address] Feb, [facility] [address] [id number] [address] [place] [address] Jan, [facility] [address] [id number] [address] [place] [address] Jan, [facility] [address] [facility] [id number] [address] [place] [address] Jan, [facility] [address] [id number] [address] [place] [address] Jan, [facility] [address] [id number] [address] [place] [address] Jan, [facility] [address] [id number] [address] [place] [phone] Jan, [facility] [address] [facility] [id number] [address] [place] [address] Jan, [facility] [address] [id number] [address] [place] [id number] Jan, [facility] [address] [id number] [address] [place] [address] Jan, [facility] [address] [id number] [address] [place] [address] Jan, [facility] [address] [id number] [address] [place] [address] Dec, [facility] [address] [id number] [address] [place] [id number] Dec, 2014 [facility] [address] [id number] [address] [place] [address], [place] [address] Dec, 2014 [facility] [address] [id number] [address] [place] [address], [place] [address] Dec, 2014 [facility] [address] [id number] [address] [place] [address], [place] [address] Dec, 2014 [facility] [address] [id number] [address] [place] [address], [place] [address] Dec, 2014 [facility] [address] [id number] [address] [place] [address], [place] [address] Dec, 2014 [facility] [address] [id number] [address] [place] [address], [place] [address] Dec, 2014 [facility] [address] [id number] [address] [place] [address], [place] [address] Dec, 2014 [facility] [address] [id number] [address] [place] [address], [place] [address] Dec, 2014 [facility] [address] [id number] [address] [place] [address], [place] [address] Oct, [facility] [address] [id number] [address] [place] [address], [place] [address] Oct, [facility] [address] [id number] [address] [place] [address], [place] [address] Oct, [facility] [address] [id number] [address] [place] [address], [place] [address] Oct, [facility] [address] [id number] [address] [place] [address], [place] [address] Oct, [facility] [address] [id number] [address] [place] [address], [place] [address] Oct, [facility] [address] [id number] [address] [place] [address], [place] [address] Oct, [facility] [address] [id number] [address] [place] [address], [place] [address] 05 Oct, 2014 [facility] [address] [id number] [address] [place] [address], [place] [address] Oct, [facility] [address] [id number] [address] [place] [address], [place] [address] Oct, [facility] [address] [id number] [address] [place] [address], [place] [address] Oct, [facility] [address] [id number] [address] [place] [address], [place] [address] Oct, [facility] [address] [id number] [address] [place] [address], [place] [address] Oct, [facility] [address] [id number] [address] [place] [address], [place] [address] Oct, [facility] [address] [id number] [address] [place] [address], [place] [phone] Sep, [facility] [address] [id number] [address] [place] [address], [place] [id number] Sep, [facility] [address] [id number] [address] [place] [address], [place] [id number] Sep, [facility] [address] [id number] [address] [place] [address], [place] [id number] Sep, [facility] [address] [id number] [address] [place] [address], [place] [address] Sep, [facility] [address] [id number] [address] [place] [address], [place] [address] Sep, [facility] [address] [id number] [address] [place] [address], [place] [address] Sep, [facility] [address] [id number] [address] [place] [address], [place] [id number] Sep, [facility] [address] [id number] [address] [place] [id number] Sep, [facility] [address] [id number] [address] [place] [address], [place] [id number] Aug, [facility] [address] [id number] [address] [place] [address], [place] [address] Aug, [facility] [address] [id number] [address] [place] [address], [place] [address] Aug, [facility] [address] [id number] [address] [place] [address], [place] [id number] Aug, [facility] [address] [id number] [address] [place] [address], [place] [id number] 16 Aug, 2014 [facility] [address] [id number] [address] [place] [address], [place] [id number] Aug, [facility] [address] [id number] [address] [place] [address], [place] [address] Aug, [facility] [address] [id number] [address] [place] [address], [place] [address] Aug, [facility] [address] [id number] [address] [place] [id number] Aug, [facility] [address] [id number] [address] [place] [address], [place] [id number] 29 Jul, 2014 [facility] [address] [id number] [address] [place] [address], [place] [address] 29 Jul, 2013 [facility] [address] [id number] [address] [place] [id number] 25 Jul, 2014 [facility] [address] [id number] [address] [place] [address], [place] [id number] 25 Jul, 2014 [facility] [address] [id number] [address] [place] [address], [place] [id number] Jul, 2013 [facility] [address] [id number] [address] [place] [address], [place] [id number] 25 Jul, 2013 [facility] [address] [id number] [facility] [place] [address] Jul, [facility] [address] [id number] [facility] [place] [address] Jul, [facility] [address] [id number] [facility] [place] [id number] Jul, [facility] [facility] [address] [id number] [address] [place] [address], [place] [address] Jul, [facility] [address] [id number] [facility] [place] [address] Jun, [facility] [address] [id number] [address] [place] [address], [place] [address] Jun, [facility] [address] [id number] [address] [place] [address], [place] [address] Jun, [facility] [address] [id number] [address] [place] [address], [place] [address] Jun, [facility] [address] [id number] [address] [place] [address], [place] [address] Jun, [facility] [address] [id number] [address] [place] [address], [place] [address] Jun, [facility] [address] [id number] [address] [place] [address], [place] [address] Jun, [facility] [address] [id number] [address] [place] [address], [place] [address] Jun, [facility] [address] [id number] [address] [place] [address], [place] [address] Jun, [facility] [address] [id number] [address] [place] [address], [place] [address] Jun, [facility] [address] [id number] [address] [place] [address], [place] [address] Jun, [facility] [address] [id number] [address] [place] [address], [place] [address] Jun, [facility] [address] [id number] [facility] [place] [address] May, [facility] [address] [id number] [address] [place] [address], [place] [address] May, [facility] [address] [id number] [address] [place] [address], [place] [address] May, [facility] [address] [id number] [address] [place] [address], [place] [address] May, [facility] [address] [id number] [address] [place] [address], [place] [address] May, [facility] [address] [id number] [address] [place] [address], [place] [address] May, [facility] [address] [id number] [address] [place] [address], [place] [address] March, [facility] [address] [id number] [address] [place] [address], [place] [address] March, [facility] [address] [id number] [address] [place] [address], [place] [address] March, [facility] [address] [id number] [address] [place] [address], [place] [address] March, [facility] [address] [id number] [address] [place] [address], [place] [address] March, [facility] [address] [id number] [address] [place] [address], [place] [address] March, [facility] [address] [id number] [address] [place] [address], [place] [address] Feb, [facility] [address] [id number] [address] [place] [address], [place] [address] Feb, [facility] [address] [id number] [address] [place] [address], [place] [address] Feb, [facility] [address] [id number] [address] [place] [address], [place] [address] Feb, [facility] [address] [id number] [facility] [place] [address] Jan, [facility] [address] [id number] [facility] [place] [address] Jan, [facility] [address] [id number] [address] [place] [address], [place] [address] Jan, [facility] [address] [id number] [address] [place] [address], [place] [address] Jan, [facility] [address] [id number] [address] [place] [address], [place] [address] Jan, [facility] [address] [id number] [address] [place] [address], [place] [address] Jan, [facility] [address] [id number] [address] [place] [address], [place] [address] Jan, [facility] [address] [id number] [address] [place] [address], [place] [address] Jan, [facility] [address] [id number] [address] [place] [address], [place] [address] Jan, [facility] [address] [id number] [address] [place] [address], [place] [address] Jan, [facility] [address] [id number] [address] [place] [address], [place] [address] Jan, [facility] [address] [id number] [address] [place] [address], [place] [address] Jan, [facility] [address] [id number] [address] [place] [address], [place] [address] Dec, [facility] [address] [id number] [address] [place] [address], [place] [address] Dec, [facility] [address] [id number] [address] [place] [address], [place] [address] Dec, [facility] [address] [id number] [address] [place] [address], [place] [address] Dec, [facility] [address] [id number] [address] [place] [address], [place] [address] Dec, [facility] [address] [id number] [address] [place] [address], [place] [address] Dec, [facility] [address] [id number] [address] [place] [address], [place] [address] Nov, [facility] [address] [id number] [address] [place] [address], [place] [address] Nov, [facility] [address] [id number] [address] [place] [address], [place] [address] Oct, [facility] [address] [id number] [address] [place] [address], [place] [address] Oct, [facility] [address] [id number] [address] [place] [address], [place] [address] Oct, [facility] [address] [id number] [address] [place] [address], [place] [address] Oct, [facility] [address] [id number] [address] [place] [address], [place] [address] Oct, [facility] [address] [id number] [address] [place] [address], [place] [address] Oct, [facility] [address] [id number] [address] [place] [address] Sep, [facility] [address] [id number] [address] [place] [address], [place] [address] Sep, [facility] [address] [id number] [address] [place] [address], [place] [address] Sep, [facility] [address] [id number] [address] [place] [id number] Sep, [facility] [address] [id number] [address] [place] [address] Aug, [facility] [address] [id number] [address] [place] [address], [place] [address] Aug, [facility] [address] [id number] [address] [place] [address], [place] [address] Aug, [facility] [address] [id number] [address] [place] [address], [place] [address] Jul, [facility] [address] [id number] [address] [place] [address], [place] [address] 14 Jul, 2013 [facility] [address] [id number] [address] [place] [address], [place] [address] Jul, [facility] [address] [id number] [address] [place] [address], [place] [address] Jun, [facility] [address] [id number] [address] [place] [address], [place] [address] Jun, [facility] [address] [id number] [address] [place] [address], [place] [address] Jun, [facility] [address] [id number] [address] [place] [address], [place] [address] Apr, [facility] [address] [id number] [address] [place] [address], [place] [address] Apr, [facility] [address] [id number] [address] [place] [address], [place] [address] March, [facility] [address] [id number] [address] [place] [address], [place] [address] March, [facility] [address] [id number] [address] [place] [address], [place] [address] March, [facility] [address] [id number] [address] [place] [address], [place] [address] March, [facility] [address] [id number] [address] [place] [address], [place] [address] Feb, [facility] [address] [id number] [address] [place] [address], [place] [address] Jan, [facility] [address] [id number] [address] [place] [address], [place] [address] 13 Dec, 2012 [facility] [address] [id number] [address] [place] [address], [place] [address] 08 Dec, 2012 [facility] [address] [id number] [address] [place] [address], [place] [address] 07 Dec, 2012 [facility] [address] [id number] [address] [place] [address], [place] [address] Nov, [facility] [address] [id number] [address] [place] [address], [place] [address] Oct, [facility] [address] [id number] [address] [place] [address], [place] [address] Oct, [facility] [address] [id number] [address] [place] [address], [place] [address] Sep, [facility] [address] [id number] [address] [place] [address], [place] [address] Sep, [facility] [address] [id number] [address] [place] [address], [place] [address] Sep, [facility] [address] [id number] [address] [place] [address], [place] [address] Sep, [facility] [address] [id number] [address] [place] [address], [place] [address] Sep, [facility] [address] [id number] [address] [place] [address], [place] [address] Sep, [facility] [address] [id number] [address] [place] [address], [place] [address] Sep, [facility] [address] [id number] [address] [place] [address], [place] [address] 16 Aug, 2012 [facility] [address] [id number] [address] [place] [address], [place] [address] 16 Aug, 2012 [facility] [address] [id number] [address] [place] [address], [place] [address] 10 Aug, 2012 [facility] [address] [id number] [address] [place] [address], [place] [address] 10 Aug, 2012 [facility] [address] [id number] [address] [place] [address], [place] [address] 08 Aug, 2012 [facility] [address] [id number] [address] [place] [address], [place] [address] 08 Aug, 2012 [facility] [address] [id number] [address] [place] [address], [place] [address] Aug, [facility] [address] [id number] [address] [place] [address], [place] [address] 05 Aug, 2012 [facility] [address] [id number] [address] [place] [address], [place] [address] Jul, [facility] [address] [id number] [address] [place] [address], [place] [address] Jul, [facility] [address] [id number] [address] [place] [address], [place] [address] Jun, [facility] [address] [id number] [address] [place] [address], [place] [address] May, [facility] [address] [id number] [address] [place] [address], [place] [address] Apr, [facility] [address] [id number] [address] [place] [address], [place] [address] Apr, [facility] [address] [id number] [address] [place] [address], [place] [address] Apr, [facility] [address] [id number] [address] [place] [address], [place] [address] March, [facility] [address] [id number] [address] [place] [address], [place] [address] March, [facility] [address] [id number] [address] [place] [address], [place] [address] March, [facility] [address] [id number] [address] [place] [address], [place] [address] March, [facility] [address] [id number] [address] [place] [address], [place] [address] March, [facility] [address] [id number] [address] [place] [address], [place] [address] March, [facility] [address] [id number] [address] [place] [address], [place] [address] March, [facility] [address] [id number] [address] [place] [address], [place] [address] Jan, [facility] [address] [id number] [address] [place] [address], [place] [address] Jan, [facility] [address] [id number] [address] [place] [address], [place] [address] Jan, [facility] [address] [id number] [address] [place] [address], [place] [address] Jan, [facility] [address] [id number] [address] [place] [address], [place] [address] Jan, [facility] [address] [id number] [address] [place] [address], [place] [address] Dec, [facility] [address] [id number] [address] [place] [address], [place] [address] Dec, [facility] [address] [id number] [address] [place] [address], [place] [address] Nov, [facility] [address] [id number] [address] [place] [address], [place] [address] Nov, [facility] [address] [id number] [address] [place] [address], [place] [address] Nov, [facility] [address] [id number] [address] [place] [address], [place] [address] Nov, [facility] [address] [id number] [address] [place] [address], [place] [address] Oct, [facility] [address] [id number] [address] [place] [address], [place] [address] 06 Oct, 2011 [facility] [address] [id number] [address] [place] [address], [place] [address] 14 Sep, 2011 [facility] [address] [id number] [address] [place] [address], [place] [address] 10 Sep, 2011 [facility] [address] [id number] [address] [place] [address], [place] [address] 10 Sep, 2011 [facility] [address] [id number] [address] [place] [address], [place] [address] 11 May, 2011 [facility] [address] [id number] [address] [place] [address], [place] [address] 20 Nov, 2010 [facility] [address] [id number] [address] [place] [address], [place] [address] 29 Oct, 2010 [facility] [address] [id number] [address] [place] [address], [place] [address] Oct, [facility] [address] [id number] [address] [place] [address], [place] [address] Oct, [facility] [address] [id number] [address] [place] [address], [place] [address] 15 Sep, 2010 [facility] [address] [id number] [address] [place] [address], [place] [address] Sep, [facility] [address] [id number] [address] [place] [address], [place] [address] Aug, [facility] [address] [id number] [address] [place] [address], [place] [address] March, [facility] [address] [id number] [address] [place] [address], [place] [address] 17 Oct, 2009 [facility] [address] [id number] [address] [place] [id number] Oct, [facility] [address] [id number] [address] [place] [id number] Oct, [facility] [address] [id number] [address] [place] [id number] Oct, [facility] [address] [id number] [address] [place] [id number] Sep, [facility] [address] [id number] [address] [place] [id number] Sep, [facility] [address] [id number] [address] [place] [id number] Sep, [facility] [address] [id number] [address] [place] [id number] Aug, [facility] [address] [facility] [id number] [address] [place] [id number] Aug, [facility] [address] [id number] [address] [place] [id number] Aug, [facility] [address] [facility] [id number] [address] [place] [id number] Jan, IMMUNIZATIONS No Known Immunizations SOCIAL HISTORY [...]
--- OUTSIDE RECORDS SUMMARY | 2020-06-13 16:37 | XMS REPORT ---
Author Author Jah PARKER Organization [facility] Address [address] [place] [address] Care Team Providers Care Manager Metrology Name Role Phone PARKERSHAYLEE MckeonELE Unavailable PROBLEMS Type Condition ICD9-CM Code [id number] Code Onset Dates Condition S tatus SNOMED Code Problem Gastroesophageal reflux disease with esophagitis K 21.0 Active 910412328 Problem care home current use of insulin Z79.4 Active 643727976 Problem Irritable bowel syndrome with diarrhea K58.0 Active 258895754 Problem Diabetes mellitus E11.9 Active 73 375833 Problem Recurrent major depressive disorder, in partial remission F33.41 Active 85018400 Problem Essential (primary) hypertension I10 Active 68918574 Problem Type 2 diabetes mellitus with hyperglycemia E11.65 Active 36890468 Problem Current non-adherence to medical treatment Z91.19 Active 3883642 Problem Pulmonary emphysema, unspecified emphysema type J4 3.9 Active 42685203 Problem Neuropathy G62.9 Active 054077815 Problem Hypothyroid E03.9 Active 74270786 Problem Thrombocytosis D47.3 Active 67673 09 Problem Overactive bladder N32.81 Active 2 89451549 Problem Chronic pain G89.29 Active 3381703 1 Problem Mixed hyperlipidemia E78.2 Active [id number] ALLERGIES No Information ENCOUNTERS Encounter Location Date Diagnosis [facility] [address] [facility] [id number] [address] [place] [address] Apr, [facility] [address] [facility] [id number] [address] [place] [address] Apr, [facility] [address] [facility] [id number] [address] [place] [address] March, [facility] [address] [facility] [id number] [address] [place] [address] March, Hypothyroid E03.9 [facility] [address] [facility] [id number] [address] [place] [address] March, Diabetes mellitus E11.9 and Hypothyroid E03.9 [place] [address] [facility] [id number] [address] [place] [address] March, Diabetes mellitus E11.9 [place] [address] [place] [id number] [address] [place] [address] March, Hypothyroid E03.9 and Elevat ed liver enzymes R74.8 [place] [address] 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.4 ; Pulmonary emphysema, unspecified emphysema type J43.9 ; Hypothyroid E03.9 ; Neuropathy G62.9 ; Mixed hyperlipidemia E78.2 ; Chronic pain G89.29 ; Gastroesophageal reflux disease with esophagitis K21.0 ; Irritable bowel syndrome with diarrhea K58.0 ; Overactive bladder N32.81 and Recurrent major depressive disorder, in partial remission F33.41 [place] [id number] [place] [address] Feb, Chronic pain G89.29 [place] [address] [place] [id number] [address] [place] [address] Feb, Type 2 diabetes mellitus wit h hyperglycemia E11.65 and Skin lesion of scalp L98.9 [place] [address] [place] [id number] [address] [place] [address] Feb, [place] [address] 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 [id number] [address] [place] [address] Jan, Controlled substance agreeme nt signed Z79.899 [place] [address] [facility] [id number] [address] [place] [phone] 08 Dec, 2017 Type 2 diabetes mellitus wit h hyperglycemia E11.65 ; Controlled substance agreement signed Z79.899 ; care home current use of insulin Z79.4 ; Essential (primary) hypertension I10 ; Hypothyroid E03.9 ; Neuropathy G62.9 ; Depression F32.9 ; Mixed hyperlipidemia E78.2 ; Irritable bowel syndrome with diarrhea K58.0 ; Gastroesophageal reflux disease with esophagitis K21.0 ; Thrombocytosis D47.3 ; Current non-adherence to medical treatment Z91.19 and Overweight (BMI 25.0-29.9) E66.3 [place] [address] [facility] [id number] [address] [place] [address] 02 Dec, 2017 Controlled substance agreeme nt signed Z79.899 [place] [address] [facility] [id number] [address] [place] [address] Nov, Type 2 diabetes mellitus wit h hyperglycemia E11.65 and Current non- adherence to medical treatment Z91.19 [place] [address] [facility] [id number] [address] [place] [address] Nov, [place] [address] [id number] [address] [place] [address] Nov, Chronic pain G89.29 [place] [address] [facility] [id number] [address] [place] [address] Nov, [place] [address] [facility] [id number] [address] [place] [address] Nov, Hypothyroid E03.9 [place] [address] [facility] [id number] [address] [place] [address] Nov, Hypothyroid E03.9 [place] [address] [id number] [address] [place] [address] Nov, Pulmonary emphysema, unspeci fied emphysema type J43.9 and Irritable bowel syndrome with diarrhea K58.0 [facility] [address] [facility] [id number] [address] [place] [address] Oct, [facility] [address] [facility] [id number] [address] [place] [address] Oct, [place] [address] [facility] [id number] [address] [place] [address] Oct, [place] [address] [facility] [id number] [address] [place] [address] Oct, [place] [address] [place] [id number] [place] [address] Oct, Chronic pain G89.29 [place] [address] [facility] [id number] [address] [place] [address] Oct, Diabetes mellitus E11.9 ; De pression F32.9 ; Mixed hyperlipidemia E78.2 ; Hypotension, unspecified hypotension type I95.9 ; Pulmonary emphysema, unspecified emphysema type J43.9 and Weight loss, unintentional R63.4 [place] [address] [facility] [id number] [address] [place] [address] Oct, Chronic pain G89.29 [place] [address] [facility] [id number] [address] [place] [address] Sep, Chronic pain G89.29 [place] [address] [place] [id number] [address] [place] [address] Sep, Hypothyroid E03.9 and Diabet es mellitus E11.9 [place] [address] 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 [id number] [address] [place] [address] Aug, Chronic pain G89.29 [facility] [address] [place] [id number] [address] [place] [address] Aug, Overactive bladder N32.81 ; Diabetes mellitus E11.9 and Chronic pain G89.29 [facility] [address] [facility] [id number] [address] [place] [address] Jul, [facility] [address] [place] [id number] [address] [place] [address] Jun, [facility] [address] [place] [id number] [address] [place] [address] Jun, [facility] [address] [place] [id number] [address] [place] [address] Jun, Hypothyroid E03.9 [facility] [address] [place] [id number] [place] [address] Jun, Diabetes mellitus E11.9 ; Hy pothyroid E03.9 ; Neuropathy G62.9 ; Chronic pain G89.29 and Neck mass R22.1 [facility] [address] [place] [id number] [address] [place] [address] Apr, [facility] [address] [facility] [id number] [address] [place] [address] Apr, Acute cystitis without hemat uria N30.00 [facility] [address] [facility] [id number] [address] [place] [address] March, [facility] [address] [facility] [id number] [address] [place] [address] March, [facility] [address] [place] [id number] [address] [place] [address] March, Near syncope R55 [facility] [address] [facility] [id number] [address] [place] [address] Feb, [facility] [address] [facility] [id number] [address] [place] [address] Feb, Chronic pain G89.29 [facility] [address] [facility] [id number] [address] [place] [address] Feb, [facility] [address] [place] [id number] [address] [place] [address] Feb, [facility] [address] [facility] [id number] [address] [place] [address] Jan, Chronic pain G89.29 [facility] [address] [facility] [id number] [address] [place] [address] Jan, [facility] [id number] [place] [address] Jan, [facility] [address] [place] [id number] [address] [place] [address] Jan, Diabetes mellitus E11.9 ; Hy pothyroid E03.9 ; GERD (gastroesophageal reflux disease) K21.9 ; Insomnia G47.00 ; Functional diarrhea K59.1 ; Neuropathy G62.9 ; Depression F32.9 ; Chronic pain G89.29 ; Irritable bowel syndrome with diarrhea K58.0 ; Overactive bladder N32.81 ; Mixed hyperlipidemia E78.2 and Bronchitis J40 [facility] [address] [facility] [id number] [address] [place] [address] Dec, [facility] [address] [place] [id number] [address] [place] [address] Dec, [facility] [address] [place] [id number] [address] [place] [address] Dec, [facility] [address] [place] [id number] [address] [place] [address] Dec, [facility] [address] [facility] [id number] [address] [place] [address] Dec, Chronic pain G89.29 [facility] [address] [facility] [id number] [address] [place] [address] Dec, [facility] [address] [place] [id number] [address] [place] [address] Dec, [facility] [address] [address] Dec, Type 2 diabetes mellitus wit h foot ulcer E11.621 [facility] [address] [address] 17 Dec, 2016 Type 2 diabetes mellitus wit h foot ulcer E11.621 [facility] [address] [place] [id number] [address] [place] [address] Dec, HTN (hypertension) I10 ; Dep ression F32.9 ; Type 2 diabetes mellitus with foot ulcer E11.621 ; Functional diarrhea K59.1 ; Irritable bowel syndrome with diarrhea K58.0 ; Chronic pain G89.29 ; Insomnia G47.00 ; Overactive bladder N32.81 ; Mixed hyperlipidemia E78.2 ; Gastroesophageal reflux disease with esophagitis K21.0 and Acquired hypothyroidism E03.9 [facility] [address] [place] [id number] [address] [place] [address] Nov, [facility] [address] [place] [id number] [address] [place] [address] Oct, [facility] [address] [place] [id number] [address] [place] [address] Oct, [facility] [address] [address] Oct, [facility] [address] [place] [id number] [address] [place] [address] Sep, Functional diarrhea K59.1 ; HTN (hypertension) I10 ; Diabetes mellitus E11.9 ; Depression F32.9 ; Overactive bladder N32.81 ; Mixed hyperlipidemia E78.2 ; Gastroesophageal reflux disease without esophagitis K21.9 ; Chronic pain G89.29 ; Insomnia G47.00 and Acquired hypothyroidism E03.9 [facility] [address] [place] [id number] [address] [place] [address] Sep, [place] [address] [address] Aug, Encounter for immunization Z 23 [place] [address] [address] Aug, [place] [address] [address] Jul, [place] [address] [address] Jun, Type 2 diabetes mellitus wit hout complications E11.9 ; HTN (hypertension) I10 ; Hypothyroid E03.9 ; Neuropathy G62.9 ; Depression F32.9 ; Chronic pain G89.29 ; GERD (gastroesophageal reflux disease) K21.9 ; Insomnia G47.00 ; Overactive bladder N32.81 ; Mixed hyperlipidemia E78.2 ; Diarrhea of infectious origin A09 and Environmental allergies Z91.09 [place] [address] [address] Apr, [place] [address] [address] March, Hypothyroidism, unspecified E03.9 and Mixed hyperlipidemia E78.2 [place] [address] [address] March, Diabetes mellitus E11.9 ; HT N (hypertension) I10 ; Hypothyroid E03.9 ; Depression F32.9 ; Overactive bladder N32.81 ; Other chronic pain G89.29 ; Lumbago with sciatica, unspecified side M54.40 ; Environmental allergies Z91.09 and Gastroesophageal reflux disease, esophagitis presence not specified K21.9 [place] [address] [address] March, [place] [address] [address] Jan, HTN (hypertension) I10 ; Hyp othyroid E03.9 ; Neuropathy G62.9 ; Diabetes mellitus E11.9 ; Chronic pain G89.29 ; GERD (gastroesophageal reflux disease) K21.9 ; Overactive bladder N32.81 and Depression F32.9 [place] [address] [address] 12 Dec, 2015 Ear pain, left H92.02 ; HTN (hypertension) I10 ; Hypothyroid E03.9 ; Neuropathy G62.9 ; Diabetes mellitus E11.9 ; Depression F32.9 ; GERD (gastroesophageal reflux disease) K21.9 ; Insomnia G47.00 and Overactive bladder N32.81 [place] [address] [address] Nov, Overactive bladder N32.81 an d Chronic pain G89.29 [place] [address] [address] Nov, Kidney failure N19 [place] [address] [address] Nov, [place] [address] [address] Nov, [place] [address] [address] Nov, Diabetes mellitus E11.9 ; De pression F32.9 ; Chronic pain G89.29 ; GERD (gastroesophageal reflux disease) K21.9 ; Insomnia G47.00 ; HTN (hypertension) I10 ; Hypothyroid E03.9 ; COPD (chronic obstructive pulmonary disease) J44.9 ; Bladder incontinence R32 and Incontinence R32 [place] [address] [address] Sep, Type 2 diabetes mellitus wit h foot ulcer E11.621 and Chromosomal abnormality, 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 [place] [address] [address] Sep, [place] [address] [address] Aug, [address] [address] Aug, [place] [address] [address] Aug, HTN (hypertension) I10 ; Enc ounter for immunization Z23 ; Hypothyroid E03.9 ; Neuropathy G62.9 ; Diabetes mellitus E11.9 ; Depression F32.9 ; Chronic pain G89.29 ; GERD (gastroesophageal reflux disease) K21.9 ; Insomnia G47.00 and COPD (chronic obstructive pulmonary disease) J44.[address] [address] Jun, [place] [address] [address] Jun, [address] [address] May, Essential hypertension, ivis gn 401.1 ; Unspecified hypothyroidism 244.9 ; Insomnia, unspecified 780.52 ; Shortness of breath 786.05 ; Depression 311 ; COPD (chronic obstructive pulmonary disease) 496 ; GERD (gastroesophageal reflux disease) 530.81 and Diabetes 1.5, 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 [id number] [address] [place] [address] March, Shortness of breath 786.05 ; Nausea with vomiting 787.01 ; Essential hypertension, benign 401.1 ; Diabetes mellitus 250.00 ; Hyperlipidemia 272.4 and Hypothyroid 244.9 [facility] [address] [id number] [address] [place] [address] Feb, [facility] [address] [id number] [address] [place] [address] Feb, [facility] [address] [facility] [id number] [address] [place] [address] Jan, [facility] [address] [id number] [address] [place] [address] Jan, [facility] [address] [facility] [id number] [address] [place] [address] Jan, [facility] [address] [facility] [id number] [address] [place] [address] Jan, [facility] [address] [facility] [id number] [address] [place] [address] Jan, [facility] [address] [id number] [address] [place] [address] Jan, [facility] [address] [id number] [address] [place] [address] Jan, [facility] [address] [facility] [id number] [address] [place] [address] Jan, [facility] [address] [facility] [id number] [address] [place] [address] Jan, [facility] [address] [id number] [address] [place] [address] Jan, [facility] [address] [id number] [address] [place] [address], [place] [address] Dec, 2014 [facility] [address] [id number] [address] [place] [address], [place] [address] Dec, 2014 [facility] [address] [id number] [address] [place] [address], [place] [address] Dec, 2014 [facility] [address] [id number] [address] [place] [address], [place] [address] Dec, 2014 [facility] [address] [id number] [address] [place] [address], [place] [address] Dec, 2014 [facility] [address] [id number] [address] [place] [address], [place] [address] Dec, 2014 [facility] [address] [id number] [address] [place] [address], [place] [address] Dec, 2014 [facility] [address] [id number] [address] [place] [address], [place] [address] Dec, 2014 [facility] [address] [id number] [address] [place] [address], [place] [address] Dec, 2014 [facility] [address] [id number] [address] [place] [address], [place] [address] Dec, 2014 [facility] [address] [id number] [address] [place] [address], [place] [address] Oct, [facility] [address] [id number] [address] [place] [address], [place] [address] Oct, [facility] [address] [id number] [address] [place] [address], [place] [address] Oct, [facility] [address] [id number] [address] [place] [address], [place] [address] Oct, [facility] [address] [id number] [address] [place] [address], [place] [address] Oct, [facility] [address] [id number] [address] [place] [address], [place] [address] Oct, [facility] [address] [id number] [address] [place] [address], [place] [address] Oct, [facility] [address] [id number] [address] [place] [address], [place] [address] Oct, [facility] [address] [id number] [address] [place] [address], [place] [address] Oct, [facility] [address] [id number] [address] [place] [address], [place] [address] Oct, [facility] [address] [id number] [address] [place] [address], [place] [address] Oct, [facility] [address] [id number] [address] [place] [address], [place] [address] Oct, [facility] [address] [id number] [address] [place] [address], [place] [address] Oct, [facility] [address] [id number] [address] [place] [address], [place] [address] Oct, [facility] [address] [id number] [address] [place] [address], [place] [address] Sep, [facility] [address] [id number] [address] [place] [address], [place] [address] Sep, [facility] [address] [id number] [address] [place] [address], [place] [address] Sep, [facility] [address] [id number] [address] [place] [address], [place] [address] Sep, [facility] [address] [id number] [address] [place] [address], [place] [address] Sep, [facility] [address] [id number] [address] [place] [address], [place] [id number] 17 Sep, 2014 [facility] [address] [id number] [address] [place] [address], [place] [address] Sep, [facility] [address] [id number] [address] [place] [address], [place] [address] Sep, [facility] [address] [id number] [address] [place] [address], [place] [address] Sep, [facility] [address] [id number] [address] [place] [address], [place] [address] Aug, [facility] [address] [id number] [address] [place] [address], [place] [address] Aug, [facility] [address] [id number] [address] [place] [address], [place] [address] Aug, [facility] [address] [id number] [address] [place] [address], [place] [address] Aug, [facility] [address] [id number] [address] [place] [address], [place] [address] Aug, [facility] [address] [id number] [address] [place] [address], [place] [address] Aug, [facility] [address] [id number] [address] [place] [address], [place] [address] Aug, [facility] [address] [id number] [address] [place] [address], [place] [address] Aug, [facility] [address] [id number] [address] [place] [address], [place] [address] Aug, [facility] [address] [id number] [address] [place] [address], [place] [address] 29 Jul, 2014 [facility] [address] [id number] [address] [place] [address], [place] [address] 29 Jul, 2014 [facility] [address] [id number] [address] [place] [address], [place] [address] Jul, [facility] [address] [id number] [address] [place] [address], [place] [address] Jul, [facility] [address] [id number] [address] [place] [address] Jul, 2013 [facility] [address] [id number] [address] [place] [address] Jul, [facility] [address] [id number] [facility] [place] [address] Jul, [facility] [address] [id number] [facility] [place] [address] Jul, [facility] [address] [id number] [facility] [place] [address] Jul, [facility] [address] [id number] [address] [place] [address], [place] [address] Jul, [facility] [address] [id number] [address] [place] [address], [place] [address] Jun, [facility] [address] [id number] [address] [place] [address], [place] [address] Jun, [facility] [address] [id number] [address] [place] [address], [place] [address] Jun, [facility] [address] [id number] [address] [place] [address], [place] [address] Jun, [facility] [address] [id number] [address] [place] [address], [place] [address] Jun, [facility] [address] [id number] [address] [place] [address], [place] [address] Jun, [facility] [address] [id number] [address] [place] [address], [place] [address] Jun, [facility] [address] [id number] [address] [place] [address], [place] [address] Jun, [facility] [address] [id number] [address] [place] [address], [place] [address] Jun, [facility] [address] [id number] [address] [place] [address], [place] [address] Jun, [facility] [address] [id number] [facility] [place] [address] Jun, [facility] [address] [id number] [address] [place] [address], [place] [address] Jun, [facility] [address] [id number] [address] [place] [address], [place] [address] May, [facility] [address] [id number] [address] [place] [address], [place] [address] May, [facility] [address] [id number] [address] [place] [address], [place] [address] May, [facility] [address] [id number] [address] [place] [address], [place] [address] May, [facility] [address] [id number] [address] [place] [address], [place] [address] May, [facility] [address] [id number] [address] [place] [address], [place] [address] May, [facility] [address] [id number] [address] [place] [address], [place] [address] March, [facility] [address] [id number] [address] [place] [address], [place] [address] March, [facility] [address] [id number] [address] [place] [address], [place] [address] March, [facility] [address] [id number] [address] [place] [address], [place] [address] March, [facility] [address] [id number] [address] [place] [address], [place] [address] March, [facility] [address] [id number] [address] [place] [address], [place] [address] March, [facility] [address] [id number] [address] [place] [address], [place] [address] Feb, [facility] [address] [id number] [facility] [place] [address] 10 Feb, 2014 [facility] [address] [id number] [facility] [place] [address] Feb, [facility] [address] [id number] [facility] [place] [address] Feb, [facility] [address] [id number] [address] [place] [address], [place] [address] Jan, [facility] [address] [id number] [address] [place] [address], [place] [address] Jan, [facility] [address] [id number] [address] [place] [address], [place] [address] Jan, [facility] [address] [id number] [address] [place] [address], [place] [address] Jan, [facility] [address] [id number] [address] [place] [address], [place] [address] Jan, [facility] [address] [id number] [address] [place] [address], [place] [address] Jan, [facility] [address] [id number] [address] [place] [address], [place] [address] Jan, [facility] [address] [id number] [address] [place] [address], [place] [address] Jan, [facility] [address] [id number] [address] [place] [address], [place] [address] Jan, [facility] [address] [id number] [address] [place] [address], [place] [address] Jan, [facility] [address] [id number] [address] [place] [address], [place] [address] 05 Jan, 2014 [facility] [address] [id number] [address] [place] [address], [place] [address] Jan, [facility] [address] [id number] [address] [place] [address], [place] [address] Dec, [facility] [address] [id number] [address] [place] [address], [place] [address] Dec, [facility] [address] [id number] [address] [place] [address], [place] [address] Dec, [facility] [address] [id number] [address] [place] [address], [place] [address] Dec, [facility] [address] [id number] [address] [place] [address], [place] [address] Dec, [facility] [address] [id number] [address] [place] [address], [place] [address] Dec, [facility] [address] [id number] [address] [place] [address], [place] [address] Nov, [facility] [address] [id number] [address] [place] [address], [place] [address] Nov, [facility] [address] [id number] [address] [place] [address], [place] [address] Oct, [facility] [address] [id number] [address] [place] [address], [place] [address] Oct, [facility] [address] [id number] [address] [place] [address], [place] [address] Oct, [facility] [address] [id number] [address] [place] [address], [place] [address] Oct, [facility] [address] [id number] [address] [place] [address], [place] [address] Oct, [facility] [address] [id number] [address] [place] [address], [place] [address] Oct, [facility] [address] [id number] [address] [place] [address], [place] [address] Sep, [facility] [address] [id number] [address] [place] [address], [place] [address] Sep, [facility] [address] [id number] [address] [place] [address], [place] [address] 04 Sep, 2013 [facility] [address] [id number] [address] [place] [address], [place] [address] Sep, [facility] [address] [id number] [address] [place] [address], [place] [address] Aug, [facility] [address] [id number] [address] [place] [address], [place] [address] Aug, [facility] [address] [id number] [address] [place] [address], [place] [address] Aug, [facility] [address] [id number] [address] [place] [address], [place] [address] 17 Jul, 2013 [facility] [address] [id number] [address] [place] [address], [place] [address] 14 Jul, 2013 [facility] [address] [id number] [address] [place] [address], [place] [address] Jul, [facility] [address] [id number] [address] [place] [address], [place] [address] Jun, [facility] [address] [id number] [address] [place] [address], [place] [address] Jun, [facility] [address] [id number] [address] [place] [address], [place] [address] Jun, [facility] [address] [id number] [address] [place] [address], [place] [address] Apr, [facility] [address] [id number] [address] [place] [address], [place] [address] Apr, [facility] [address] [id number] [address] [place] [address], [place] [address] March, [facility] [address] [id number] [address] [place] [address], [place] [address] March, [facility] [address] [id number] [address] [place] [address], [place] [address] March, [facility] [address] [id number] [address] [place] [address], [place] [address] March, [facility] [address] [id number] [address] [place] [address], [place] [address] Feb, [facility] [address] [id number] [address] [place] [address], [place] [address] Jan, [facility] [address] [id number] [address] [place] [address], [place] [address] 13 Dec, 2012 [facility] [address] [id number] [address] [place] [address], [place] [address] Dec, [facility] [address] [id number] [address] [place] [address], [place] [address] Dec, [facility] [address] [id number] [address] [place] [address], [place] [address] Nov, [facility] [address] [id number] [address] [place] [address], [place] [address] Oct, [facility] [address] [id number] [address] [place] [address], [place] [address] Oct, [facility] [address] [id number] [address] [place] [address], [place] [address] Sep, [facility] [address] [id number] [address] [place] [address], [place] [address] Sep, [facility] [address] [id number] [address] [place] [address], [place] [address] Sep, [facility] [address] [id number] [address] [place] [address], [place] [address] Sep, [facility] [address] [id number] [address] [place] [address], [place] [address] Sep, [facility] [address] [id number] [address] [place] [address], [place] [address] Sep, [facility] [address] [id number] [address] [place] [address] Sep, [facility] [address] [id number] [address] [place] [address], [place] [address] 16 Aug, 2012 [facility] [address] [id number] [address] [place] [address], [place] [address] 16 Aug, 2012 [facility] [address] [id number] [address] [place] [address], [place] [address] Aug, [facility] [address] [id number] [address] [place] [address], [place] [address] 10 Aug, 2012 [facility] [address] [id number] [address] [place] [address], [place] [address] Aug, [facility] [address] [id number] [address] [place] [address], [place] [address] Aug, [facility] [address] [id number] [address] [place] [address], [place] [address] Aug, [facility] [address] [id number] [address] [place] [address], [place] [address] Aug, [facility] [address] [id number] [address] [place] [address], [place] [address] Jul, [facility] [address] [id number] [address] [place] [address], [place] [address] Jul, [facility] [address] [id number] [address] [place] [address], [place] [address] Jun, [facility] [address] [id number] [address] [place] [address], [place] [address] May, [facility] [address] [id number] [address] [place] [address], [place] [address] Apr, [facility] [address] [id number] [address] [place] [address], [place] [address] Apr, [facility] [address] [id number] [address] [place] [address], [place] [address] Apr, [facility] [address] [id number] [address] [place] [address], [place] [address] March, [facility] [address] [id number] [address] [place] [address], [place] [address] March, [facility] [address] [id number] [address] [place] [address], [place] [address] March, [facility] [address] [id number] [address] [place] [address], [place] [address] March, [facility] [address] [id number] [address] [place] [address], [place] [address] March, [facility] [address] [id number] [address] [place] [address], [place] [address] March, [facility] [address] [id number] [address] [place] [address], [place] [address] March, [facility] [address] [id number] [address] [place] [address], [place] [address] Jan, [facility] [address] [id number] [address] [place] [address], [place] [address] Jan, [facility] [address] [id number] [address] [place] [address], [place] [address] Jan, [facility] [address] [id number] [address] [place] [address], [place] [address] Jan, [facility] [address] [id number] [address] [place] [address], [place] [address] Jan, [facility] [address] [id number] [address] [place] [address], [place] [address] Dec, [facility] [address] [id number] [address] [place] [address], [place] [address] Dec, [facility] [address] [id number] [address] [place] [address], [place] [address] Nov, [facility] [address] [id number] [address] [place] [address] [address] Nov, [facility] [address] [id number] [address] [place] [address], [place] [address] Nov, [facility] [address] [id number] [address] [place] [address], [place] [address] Nov, [facility] [address] [id number] [address] [place] [address], [place] [address] Oct, [facility] [address] [id number] [address] [place] [address], [place] [address] Oct, [facility] [address] [id number] [address] [place] [address], [place] [address] 14 Sep, 2011 [facility] [address] [id number] [address] [place] [address], [place] [address] Sep, [facility] [address] [id number] [address] [place] [address], [place] [address] Sep, [facility] [address] [id number] [address] [place] [address], [place] [address] May, [facility] [address] [id number] [address] [place] [address], [place] [address] Nov, [facility] [address] [id number] [address] [place] [address], [place] [address] Oct, [facility] [address] [id number] [address] [place] [address], [place] [address] Oct, [facility] [address] [id number] [address] [place] [address], [place] [address] 08 Oct, 2010 [facility] [address] [id number] [address] [place] [address], [place] [address] 15 Sep, 2010 [facility] [address] [id number] [address] [place] [address], [place] [address] 02 Sep, 2010 [facility] [address] [id number] [address] [place] [address], [place] [address] Aug, [facility] [address] [id number] [address] [place] [address] March, [facility] [address] [id number] [address] [place] [address] Oct, [facility] [address] [id number] [address] [place] [address] Oct, [facility] [address] [id number] [address] [place] [address] Oct, [facility] [address] [id number] [address] [place] [address] Oct, [facility] [address] [id number] [address] [place] [address] Sep, [facility] [address] [id number] [address] [place] [address] Sep, [facility] [address] [id number] [address] [place] [address] Sep, [facility] [address] [id number] [address] [place] [address] Aug, [facility] [address] [id number] [address] [place] [address] Aug, [facility] [address] [id number] [address] [place] [address] Aug, [facility] [address] [id number] [address] [place] [address] Jan, IMMUNIZATIONS No Known Immunizations SOCIAL HISTORY Never Assessed REASON FOR VISIT requesting a returned call PLAN OF CARE VITAL SIGNS MEDICATIONS [...]
--- OUTSIDE RECORDS SUMMARY | 2020-06-13 16:38 | XMS REPORT ---
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 Name Role Phone GIBBS CHLOE Unavailable PROBLEMS Type Condition ICD9-CM Code KEC81-IC Code Onset Dates Condition S tatus SNOMED Code Problem Overactive bladder N32.81 Active 2 06163908 Problem Gastroesophageal reflux disease without esophagitis K21.9 Active 387159060 Problem Mixed hyperlipidemia E78.2 Active 628747087 Problem Type 2 diabetes mellitus without complications E11 .9 Active 342208784 Problem half-way current use of insulin Z79.4 Active 451503426 Problem Irritable bowel syndrome with diarrhea K58.0 Active 821598761 Problem Functional diarrhea K59.1 Active 46205403 Problem Diabetes mellitus E11.9 Active 73 865926 Problem Gastroesophageal reflux disease with esophagitis K 21.0 Active 972095486 Problem Chronic pain G89.29 Active 9882424 1 Problem Insomnia G47.00 Active 708982994 Problem HTN (hypertension) I10 Active 3 1042283 Problem Neuropathy G62.9 Active 479105280 Problem Depression F32.9 Active 31549327 Problem Hypothyroid E03.9 Active 78684337 Problem GERD (gastroesophageal reflux disease) K21.9 Active [id number] ALLERGIES No Information SOCIAL HISTORY Never Assessed [...]
--- OUTSIDE RECORDS SUMMARY | 2020-06-13 16:38 | XMS REPORT ---
Author Author Jah PARKER Organization [facility] Address [address] [place] [address] Care Team Providers Care Geriatric Physical Therapist Name Role Phone PARKERSHAYLEE MckeonELE Unavailable PROBLEMS Type Condition ICD9-CM Code XGE51-ZC Code Onset Dates Condition S tatus SNOMED Code Problem Gastroesophageal reflux disease with esophagitis K 21.0 Active 461690918 Problem [facility]CI current use of insulin Z79.4 Active 884214291 Problem Irritable bowel syndrome with diarrhea K58.0 Active 803309754 Problem Diabetes mellitus E11.9 Active 73 359369 Problem Recurrent major depressive disorder, in partial remission F33.41 Active 15005501 Problem Essential (primary) hypertension I10 Active 54190556 Problem Type 2 diabetes mellitus with hyperglycemia E11.65 Active 07106006 Problem Current non-adherence to medical treatment Z91.19 Active 9102952 Problem Pulmonary emphysema, unspecified emphysema type J4 3.9 Active 09086512 Problem Neuropathy G62.9 Active 772500119 Problem Hypothyroid E03.9 Active 85834088 Problem Thrombocytosis D47.3 Active 77095 09 Problem Overactive bladder N32.81 Active 2 17884123 Problem Chronic pain G89.29 Active 6190052 1 Problem Mixed hyperlipidemia E78.2 Active [id number] ALLERGIES No Information ENCOUNTERS Encounter Location Date Diagnosis [facility] [address] [facility] [id number] [address] [place] [address] March, [facility] [address] [facility] [id number] [address] [place] [address] March, Hypothyroid E03.9 [facility] [address] [facility] [id number] [address] [place] [address] March, Diabetes mellitus E11.9 and Hypothyroid E03.9 [facility] [address] [facility] [id number] [address] [place] [address] March, Diabetes mellitus E11.9 [place] [address] [place] [id number] [address] [place] [address] March, Hypothyroid E03.9 and Elevat ed liver enzymes R74.8 [facility] [place] [address] [place] [id number] [address] [place] [address] March, Type 2 diabetes mellitus wit h hyperglycemia E11.65 ; 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 ; Pulmonary emphysema, unspecified emphysema type J43.9 ; Hypothyroid E03.9 ; Neuropathy G62.9 ; Mixed hyperlipidemia E78.2 ; Chronic pain G89.29 ; Gastroesophageal reflux disease with esophagitis K21.0 ; Irritable bowel syndrome with diarrhea K58.0 ; Overactive bladder N32.81 and Recurrent major depressive disorder, in partial remission F33.41 [facility] [place] [address] [place] [id number] [address] [place] [address] Feb, Chronic pain G89.29 [facility] [address] [address] Feb, Type 2 diabetes mellitus wit h hyperglycemia E11.65 and Skin lesion of scalp L98.9 [place] [id number] [address] [place] [address] Feb, [facility] [address] [place] [id number] [address] [place] [address] Jan, Type 2 diabetes mellitus wit h hyperglycemia E11.65 ; 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 ; Essential (primary) hypertension I10 ; Pulmonary emphysema, unspecified emphysema type J43.9 ; Chronic pain G89.29 ; Controlled substance agreement signed Z79.899 ; Hypothyroid E03.9 ; Neuropathy G62.9 ; Gastroesophageal reflux disease with esophagitis K21.0 ; Overactive bladder N32.81 ; Depression F32.9 and Irritable bowel syndrome with diarrhea K58.0 [facility] [place] [address] [place] [id number] [address] [place] [address] Jan, [facility] [address] [place] [id number] [address] [place] [address] Jan, Controlled substance agreeme nt signed Z79.899 [place] [address] [facility] [id number] [address] [place] [address] 08 Dec, 2017 Type 2 diabetes mellitus wit h hyperglycemia E11.65 ; Controlled substance agreement signed Z79.899 ; 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 ; Essential (primary) hypertension I10 ; Hypothyroid E03.9 ; Neuropathy G62.9 ; Depression F32.9 ; Mixed hyperlipidemia E78.2 ; Irritable bowel syndrome with diarrhea K58.0 ; Gastroesophageal reflux disease with esophagitis K21.0 ; Thrombocytosis D47.3 ; Current non-adherence to medical treatment Z91.19 and Overweight (BMI 25.0-29.9) E66.3 [facility] [place] [address] [place] [id number] [address] [place] [address] 02 Dec, 2017 Controlled substance agreeme nt signed Z79.899 [facility] [place] [address] [facility] [id number] [address] [place] [address] Nov, Type 2 diabetes mellitus wit h hyperglycemia E11.65 and Current non- adherence to medical treatment Z91.19 [facility] [place] [address] [place] [id number] [address] [place] [address] Nov, [facility] [place] [address] [place] [id number] [address] [place] [address] Nov, Chronic pain G89.29 [facility] [address] [facility] [id number] [address] [place] [address] Nov, [facility] [place] [address] [facility] [id number] [address] [place] [address] Nov, Hypothyroid E03.9 [facility] [address] [facility] [id number] [address] [place] [address] Nov, Hypothyroid E03.9 [facility] [address] [facility] [id number] [address] [place] [address] Nov, Pulmonary emphysema, unspeci fied emphysema type J43.9 and Irritable bowel syndrome with diarrhea K58.0 [facility] [place] [address] [facility] [id number] [address] [place] [address] Oct, [facility] [place] [address] [facility] [id number] [address] [place] [address] Oct, [facility] [address] [facility] [id number] [address] [place] [address] Oct, [facility] [place] [address] [facility] [id number] [address] [place] [address] Oct, [facility] [address] [facility] [id number] [address] [place] [address] Oct, Chronic pain G89.29 [facility] [place] [address] [place] [id number] [address] [place] [address] Oct, Diabetes mellitus E11.9 ; De pression F32.9 ; Mixed hyperlipidemia E78.2 ; Hypotension, unspecified hypotension type I95.9 ; Pulmonary emphysema, unspecified emphysema type J43.9 and Weight loss, unintentional R63.4 [facility] [address] [place] [id number] [address] [place] [address] Oct, Chronic pain G89.29 [facility] [place] [address] [place] [id number] [address] [place] [address] Sep, Chronic pain G89.29 [facility] [place] [address] [place] [id number] [address] [place] [address] Sep, Hypothyroid E03.9 and Diabet es mellitus E11.9 [facility] [address] [facility] [id number] [address] [place] [address] Aug, Type 2 diabetes mellitus wit h hyperglycemia E11.65 ; 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 ; Essential (primary) hypertension I10 ; Hypothyroid E03.9 ; Neuropathy G62.9 ; Chronic pain G89.29 ; Mixed hy perlipidemia E78.2 and Encounter for immunization Z23 [facility] [place] [address] [facility] [id number] [address] [place] [address] Aug, Chronic pain G89.29 [facility] [address] [facility] [id number] [address] [place] [address] Aug, Overactive bladder N32.81 ; Diabetes mellitus E11.9 and Chronic pain G89.29 [facility] [address] [facility] [id number] [address] [place] [address] Jul, [facility] [address] [facility] [id number] [address] [place] [address] Jun, [facility] [address] [place] [id number] [address] [place] [address] Jun, [facility] [address] [place] [id number] [place] [address] Jun, Hypothyroid E03.9 [facility] [address] [place] [id number] [place] [address] Jun, Diabetes mellitus E11.9 ; Hy pothyroid E03.9 ; Neuropathy G62.9 ; Chronic pain G89.29 and Neck mass R22.1 [facility] [address] [place] [id number] [address] [place] [address] Apr, [facility] [address] [place] [id number] [address] [place] [address] Apr, Acute cystitis without hemat uria N30.00 [facility] [address] [facility] [id number] [address] [place] [address] March, [facility] [address] [place] [id number] [address] [place] [address] March, [facility] [address] [place] [id number] [address] [place] [address] March, Near syncope R55 [facility] [address] [place] [id number] [address] [place] [address] Feb, [facility] [address] [place] [id number] [address] [place] [address] Feb, Chronic pain G89.29 [facility] [address] [facility] [id number] [address] [place] [address] Feb, [facility] [address] [facility] [id number] [address] [place] [address] Feb, [facility] [address] [facility] [id number] [address] [place] [address] Jan, Chronic pain G89.29 [facility] [address] [facility] [id number] [address] [place] [address] Jan, [facility] [address] [address] Jan, [facility] [address] [facility] [id number] [address] [place] [address] Jan, Diabetes mellitus E11.9 ; Hy pothyroid E03.9 ; GERD (gastroesophageal reflux disease) K21.9 ; Insomnia G47.00 ; Functional diarrhea K59.1 ; Neuropathy G62.9 ; Depression F32.9 ; Chronic pain G89.29 ; Irritable bowel syndrome with diarrhea K58.0 ; Overactive bladder N32.81 ; Mixed hyperlipidemia E78.2 and Bronchitis J40 [facility] [address] [facility] [id number] [address] [place] [address] Dec, [facility] [address] [facility] [id number] [address] [place] [address] Dec, [facility] [address] [facility] [id number] [address] [place] [address] Dec, [facility] [address] [facility] [id number] [address] [place] [address] Dec, [facility] [address] [facility] [id number] [address] [place] [address] Dec, Chronic pain G89.29 [facility] [address] [facility] [id number] [address] [place] [address] Dec, [facility] [address] [place] [id number] [address] [place] [address] Dec, [facility] [address] [place] [id number] [place] [address] Dec, Type 2 diabetes mellitus wit h foot ulcer E11.621 [facility] [address] [place] [id number] [address] [place] [address] 17 Dec, 2016 Type 2 diabetes mellitus wit h foot ulcer E11.621 [facility] [address] [place] [id number] [address] [place] [address] Dec, HTN (hypertension) I10 ; Dep ression F32.9 ; Type 2 diabetes mellitus with foot ulcer E11.621 ; Functional diarrhea K59.1 ; Irritable bowel syndrome with diarrhea K58.0 ; Chronic pain G89.29 ; Insomnia G47.00 ; Overactive bladder N32.81 ; Mixed hyperlipidemia E78.2 ; Gastroesophageal reflux disease with esophagitis K21.0 and Acquired hypothyroidism E03.9 [facility] [address] [address] Nov, [place] [address] [address] Oct, [place] [address] [address] Oct, [facility] [address] [place] [id number] [address] [place] [address] Oct, [facility] [place] [address] [place] [id number] [address] [place] [address] Sep, Functional diarrhea K59.1 ; HTN (hypertension) I10 ; Diabetes mellitus E11.9 ; Depression F32.9 ; Overactive bladder N32.81 ; Mixed hyperlipidemia E78.2 ; Gastroesophageal reflux disease without esophagitis K21.9 ; Chronic pain G89.29 ; Insomnia G47.00 and Acquired hypothyroidism E03.9 [place] [address] [address] 04 Sep, 2016 [place] [address] [address] 11 Aug, 2016 Encounter for immunization Z 23 [place] [address] [address] 06 Aug, 2016 [place] [address] [address] 09 Jul, 2016 [place] [address] [address] Jun, Type 2 diabetes mellitus wit hout complications E11.9 ; HTN (hypertension) I10 ; Hypothyroid E03.9 ; Neuropathy G62.9 ; Depression F32.9 ; Chronic pain G89.29 ; GERD (gastroesophageal reflux disease) K21.9 ; Insomnia G47.00 ; Overactive bladder N32.81 ; Mixed hyperlipidemia E78.2 ; Diarrhea of infectious origin A09 and Environmental allergies Z91.09 [place] [address] [address] Apr, [place] [address] [address] March, Hypothyroidism, unspecified E03.9 and Mixed hyperlipidemia E78.2 [place] [address] [address] March, Diabetes mellitus E11.9 ; HT N (hypertension) I10 ; Hypothyroid E03.9 ; Depression F32.9 ; Overactive bladder N32.81 ; Other chronic pain G89.29 ; Lumbago with sciatica, unspecified side M54.40 ; Environmental allergies Z91.09 and Gastroesophageal reflux disease, esophagitis presence not specified K21.9 [place] [address] [address] March, [place] [address] [address] Jan, HTN (hypertension) I10 ; Hyp othyroid E03.9 ; Neuropathy G62.9 ; Diabetes mellitus E11.9 ; Chronic pain G89.29 ; GERD (gastroesophageal reflux disease) K21.9 ; Overactive bladder N32.81 and Depression F32.9 [facility] [address] [facility] [id number] [address] [place] [address] 12 Dec, 2015 Ear pain, left H92.02 ; HTN (hypertension) I10 ; Hypothyroid E03.9 ; Neuropathy G62.9 ; Diabetes mellitus E11.9 ; Depression F32.9 ; GERD (gastroesophageal reflux disease) K21.9 ; Insomnia G47.00 and Overactive bladder N32.81 [place] [address] [place] [address] Nov, Overactive bladder N32.81 an d Chronic pain G89.29 [place] [address] [place] [id number] [address] [place] [address] Nov, Kidney failure N19 [place] [address] [place] [id number] [address] [place] [address] Nov, [place] [address] [place] [address] Nov, [place] [address] [place] [id number] [address] [place] [address] Nov, Diabetes mellitus E11.9 ; De pression F32.9 ; Chronic pain G89.29 ; GERD (gastroesophageal reflux disease) K21.9 ; Insomnia G47.00 ; HTN (hypertension) I10 ; Hypothyroid E03.9 ; COPD (chronic obstructive pulmonary disease) J44.9 ; Bladder incontinence R32 and Incontinence R32 [place] [address] [place] [id number] [address] [place] [address] Sep, Type 2 diabetes mellitus wit h foot ulcer E11.621 and Chromosomal abnormality, 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 [facility] [address] [place] [id number] [address] [place] [address] Sep, [place] [address] [address] Aug, [place] [address] [address] Aug, [place] [address] [address] Aug, HTN (hypertension) I10 ; Enc ounter for immunization Z23 ; Hypothyroid E03.9 ; Neuropathy G62.9 ; Diabetes mellitus E11.9 ; Depression F32.9 ; Chronic pain G89.29 ; GERD (gastroesophageal reflux disease) K21.9 ; Insomnia G47.00 and COPD (chronic obstructive pulmonary disease) J44.[address] [address] Jun, [address] [address] Jun, [address] [address] May, Essential hypertension, ivis gn 401.1 ; Unspecified hypothyroidism 244.9 ; Insomnia, unspecified 780.52 ; Shortness of breath 786.05 ; Depression 311 ; COPD (chronic obstructive pulmonary disease) 496 ; GERD (gastroesophageal reflux disease) 530.81 and Diabetes 1.5, 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 [address] May, [address] [address] May, [place] [address] [address] May, Shortness of breath 786.05 ; Essential hypertension, benign 401.1 ; Diabetes mellitus 250.00 ; Hyperlipidemia 272.4 ; Hypothyroid 244.9 ; Insomnia 780.52 and Cough 786.[address] [address] Apr, [place] [address] [id number] [address] [place] [address] March, Shortness of breath 786.05 ; Nausea with vomiting 787.01 ; Essential hypertension, benign 401.1 ; Diabetes mellitus 250.00 ; Hyperlipidemia 272.4 and Hypothyroid 244.9 [facility] [address] [id number] [address] [place] [address] Feb, [facility] [address] [id number] [address] [place] [address] Feb, [facility] [address] [id number] [address] [place] [address] Jan, [facility] [address] [id number] [address] [place] [address] Jan, [facility] [address] [facility] [id number] [address] [place] [address] Jan, [facility] [address] [id number] [address] [place] [address] Jan, [facility] [address] [facility] [id number] [address] [place] [address] Jan, [facility] [address] [facility] [id number] [address] [place] [address] Jan, [facility] [address] [facility] [id number] [address] [place] [address] Jan, [facility] [address] [id number] [address] [place] [address] Jan, [facility] [address] [id number] [address] [place] [address] Jan, [facility] [address] [id number] [address] [place] [address] Jan, [facility] [address] [facility] [id number] [address] [place] [address] Dec, [facility] [address] [id number] [address] [place] [address] Dec, 2014 [facility] [address] [id number] [address] [place] [address], [place] [address] Dec, 2014 [facility] [address] [id number] [address] [place] [address], [place] [address] Dec, 2014 [facility] [address] [id number] [address] [place] [address], [place] [address] Dec, 2014 [facility] [address] [id number] [address] [place] [address], [place] [address] Dec, 2014 [facility] [address] [id number] [address] [place] [address], [place] [address] Dec, 2014 [facility] [address] [id number] [address] [place] [address], [place] [address] Dec, 2014 [facility] [address] [id number] [address] [place] [address], [place] [address] Dec, 2014 [facility] [address] [id number] [address] [place] [address], [place] [address] Dec, 2014 [facility] [address] [id number] [address] [place] [address], [place] [address] Oct, [facility] [address] [id number] [address] [place] [address], [place] [address] Oct, [facility] [address] [id number] [address] [place] [address], [place] [address] Oct, [facility] [address] [id number] [address] [place] [address], [place] [address] Oct, [facility] [address] [id number] [address] [place] [address], [place] [address] Oct, [facility] [address] [id number] [address] [place] [address], [place] [address] Oct, [facility] [address] [id number] [address] [place] [address], [place] [address] Oct, [facility] [address] [id number] [address] [place] [address], [place] [address] 05 Oct, 2014 [facility] [address] [id number] [address] [place] [address], [place] [address] Oct, [facility] [address] [id number] [address] [place] [address], [place] [address] Oct, [facility] [address] [id number] [address] [place] [address], [place] [address] Oct, [facility] [address] [id number] [address] [place] [address], [place] [address] Oct, [facility] [address] [id number] [address] [place] [address], [place] [address] Oct, [facility] [address] [id number] [address] [place] [address], [place] [address] Oct, [facility] [address] [id number] [address] [place] [address], [place] [address] Sep, [facility] [address] [id number] [address] [place] [address], [place] [address] Sep, [facility] [address] [id number] [address] [place] [address], [place] [address] Sep, [facility] [address] [id number] [address] [place] [address], [place] [address] Sep, [facility] [address] [id number] [address] [place] [address], [place] [address] Sep, [facility] [address] [id number] [address] [place] [address], [place] [address] Sep, [facility] [address] [id number] [address] [place] [address], [place] [address] Sep, [facility] [address] [id number] [address] [place] [address], [place] [address] Sep, [facility] [address] [id number] [address] [place] [address], [place] [address] Sep, [facility] [address] [id number] [address] [place] [address], [place] [id number] Aug, [facility] [address] [id number] [address] [place] [address], [place] [id number] 20 Aug, 2014 [facility] [address] [id number] [address] [place] [address], [place] [address] 17 Aug, 2014 [facility] [address] [id number] [address] [place] [address], [place] [id number] 17 Aug, 2014 [facility] [address] [id number] [address] [place] [address], [place] [address] 16 Aug, 2014 [facility] [address] [id number] [address] [place] [address], [place] [address] Aug, [facility] [address] [id number] [address] [place] [address], [place] [address] Aug, [facility] [address] [id number] [address] [place] [address], [place] [address] Aug, [facility] [address] [id number] [address] [place] [address], [place] [address] Aug, [facility] [address] [id number] [address] [place] [address], [place] [address] 29 Jul, 2013 [facility] [address] [id number] [address] [place] [address], [place] [address] 29 Sep, 2013 [facility] [address] [id number] [address] [place] [address], [place] [address] 25 Jul, 2013 [facility] [address] [id number] [address] [place] [address], [place] [address] 25 Jul, 2013 [facility] [address] [id number] [address] [place] [address], [place] [address] 25 Jul, 2013 [facility] [address] [id number] [address] [place] [address], [place] [id number] 25 Jul, 2013 [facility] [address] [id number] [facility] [place] [address] Jul, [facility] [address] [id number] [facility] [place] [address] Jul, [facility] [address] [id number] [facility] [place] [address] Jul, [facility] [address] [id number] [facility] [place] [address] Jul, [facility] [address] [id number] [facility] [place] [address] Jun, [facility] [address] [id number] [address] [place] [address], [place] [address] Jun, [facility] [address] [id number] [address] [place] [address], [place] [address] Jun, [facility] [address] [id number] [address] [place] [address], [place] [address] Jun, [facility] [address] [id number] [address] [place] [address], [place] [address] Jun, [facility] [address] [id number] [address] [place] [address], [place] [address] Jun, [facility] [address] [id number] [address] [place] [address], [place] [address] Jun, [facility] [address] [id number] [address] [place] [address], [place] [address] Jun, [facility] [address] [id number] [address] [place] [address], [place] [address] Jun, [facility] [address] [id number] [address] [place] [address], [place] [address] Jun, [facility] [address] [id number] [address] [place] [address], [place] [address] Jun, [facility] [address] [id number] [address] [place] [address], [place] [address] Jun, [facility] [address] [id number] [facility] [place] [address] May, [facility] [address] [id number] [address] [place] [address], [place] [address] May, [facility] [address] [id number] [address] [place] [address], [place] [address] May, [facility] [address] [id number] [address] [place] [address], [place] [address] May, [facility] [address] [id number] [address] [place] [address], [place] [address] May, [facility] [address] [id number] [address] [place] [address], [place] [address] May, [facility] [address] [id number] [address] [place] [address], [place] [address] March, [facility] [address] [id number] [address] [place] [address], [place] [address] March, [facility] [address] [id number] [address] [place] [address], [place] [address] March, [facility] [address] [id number] [address] [place] [address], [place] [address] March, [facility] [address] [id number] [address] [place] [address], [place] [address] March, [facility] [address] [id number] [address] [place] [address], [place] [address] March, [facility] [address] [id number] [address] [place] [address], [place] [address] Feb, [facility] [address] [id number] [address] [place] [address], [place] [address] Feb, [facility] [address] [id number] [address] [place] [address], [place] [address] Feb, [facility] [address] [id number] [facility] [place] [address] Feb, [facility] [address] [id number] [address] [place] [address], [place] [address] Jan, [facility] [address] [id number] [facility] [place] [address] Jan, [facility] [address] [id number] [address] [place] [address], [place] [address] Jan, [facility] [address] [id number] [address] [place] [address], [place] [address] Jan, [facility] [address] [id number] [address] [place] [address], [place] [address] Jan, [facility] [address] [id number] [address] [place] [address], [place] [address] Jan, [facility] [address] [id number] [address] [place] [address], [place] [address] Jan, [facility] [address] [id number] [address] [place] [address], [place] [address] Jan, [facility] [address] [id number] [address] [place] [address], [place] [address] Jan, [facility] [address] [id number] [address] [place] [address], [place] [address] Jan, [facility] [address] [id number] [address] [place] [address], [place] [address] Jan, [facility] [address] [id number] [address] [place] [address], [place] [address] Jan, [facility] [address] [id number] [address] [place] [address], [place] [address] Dec, [facility] [address] [id number] [address] [place] [address], [place] [address] Dec, [facility] [address] [id number] [address] [place] [address], [place] [address] Dec, [facility] [address] [id number] [address] [place] [address], [place] [address] Dec, [facility] [address] [id number] [address] [place] [address], [place] [address] Dec, [facility] [address] [id number] [address] [place] [address], [place] [address] Dec, [facility] [address] [id number] [address] [place] [address], [place] [address] Nov, [facility] [address] [id number] [address] [place] [address], [place] [address] Nov, [facility] [address] [id number] [address] [place] [address], [place] [address] Oct, [facility] [address] [id number] [address] [place] [address], [place] [address] Oct, [facility] [address] [id number] [address] [place] [address], [place] [address] Oct, [facility] [address] [id number] [address] [place] [address], [place] [address] Oct, [facility] [address] [id number] [address] [place] [address], [place] [address] Oct, [facility] [address] [id number] [address] [place] [address], [place] [address] Oct, [facility] [address] [id number] [address] [place] [address] Sep, [facility] [address] [id number] [address] [place] [address], [place] [address] Sep, [facility] [address] [id number] [address] [place] [address], [place] [address] Sep, [facility] [address] [id number] [address] [place] [address], [place] [address] Sep, [facility] [address] [id number] [address] [place] [address], [place] [address] Aug, [facility] [address] [id number] [address] [place] [address], [place] [address] Aug, [facility] [address] [id number] [address] [place] [address], [place] [address] Aug, [facility] [address] [id number] [address] [place] [address], [place] [address] 17 Jul, 2013 [facility] [address] [id number] [address] [place] [address], [place] [address] 14 Jul, 2013 [facility] [address] [id number] [address] [place] [address], [place] [address] Jul, [facility] [address] [id number] [address] [place] [address], [place] [address] Jun, [facility] [address] [id number] [address] [place] [address], [place] [address] Jun, [facility] [address] [id number] [address] [place] [address], [place] [address] Jun, [facility] [address] [id number] [address] [place] [address], [place] [address] Apr, [facility] [address] [id number] [address] [place] [address], [place] [address] Apr, [facility] [address] [id number] [address] [place] [address], [place] [address] March, [facility] [address] [id number] [address] [place] [address], [place] [address] March, [facility] [address] [id number] [address] [place] [address], [place] [address] March, [facility] [address] [id number] [address] [place] [address], [place] [address] March, [facility] [address] [id number] [address] [place] [address], [place] [address] Feb, [facility] [address] [id number] [address] [place] [address], [place] [address] Jan, [facility] [address] [id number] [address] [place] [address], [place] [address] 13 Dec, 2012 [facility] [address] [id number] [address] [place] [address], [place] [address] 08 Dec, 2012 [facility] [address] [id number] [address] [place] [address], [place] [address] 07 Dec, 2012 [facility] [address] [id number] [address] [place] [address], [place] [address] Nov, [facility] [address] [id number] [address] [place] [address], [place] [address] Oct, [facility] [address] [id number] [address] [place] [address], [place] [address] Oct, [facility] [address] [id number] [address] [place] [address], [place] [address] Sep, [facility] [address] [id number] [address] [place] [address], [place] [address] Sep, [facility] [address] [id number] [address] [place] [address], [place] [address] Sep, [facility] [address] [id number] [address] [place] [address], [place] [address] Sep, [facility] [address] [id number] [address] [place] [address] Sep, [facility] [address] [id number] [address] [place] [address], [place] [address] Sep, [facility] [address] [id number] [address] [place] [address], [place] [address] Sep, [facility] [address] [id number] [address] [place] [address], [place] [address] 16 Aug, 2012 [facility] [address] [id number] [address] [place] [address] 16 Aug, 2012 [facility] [address] [id number] [address] [place] [address], [place] [address] 10 Aug, 2012 [facility] [address] [id number] [address] [place] [address], [place] [address] 10 Aug, 2012 [facility] [address] [id number] [address] [place] [address], [place] [address] 08 Aug, 2012 [facility] [address] [id number] [address] [place] [address], [place] [address] 08 Aug, 2012 [facility] [address] [id number] [address] [place] [address], [place] [address] Aug, [facility] [address] [id number] [address] [place] [address], [place] [address] Aug, [facility] [address] [id number] [address] [place] [address], [place] [address] Jul, [facility] [address] [id number] [address] [place] [address], [place] [address] Jul, [facility] [address] [id number] [address] [place] [address], [place] [address] Jun, [facility] [address] [id number] [address] [place] [address], [place] [address] May, [facility] [address] [id number] [address] [place] [address], [place] [address] Apr, [facility] [address] [id number] [address] [place] [address], [place] [address] Apr, [facility] [address] [id number] [address] [place] [address], [place] [address] Apr, [facility] [address] [id number] [address] [place] [address], [place] [address] March, [facility] [address] [id number] [address] [place] [address], [place] [address] March, [facility] [address] [id number] [address] [place] [address], [place] [address] March, [facility] [address] [id number] [address] [place] [address], [place] [address] March, [facility] [address] [id number] [address] [place] [address], [place] [address] March, [facility] [address] [id number] [address] [place] [address], [place] [address] March, [facility] [address] [id number] [address] [place] [address], [place] [address] March, [facility] [address] [id number] [address] [place] [address], [place] [address] Jan, [facility] [address] [id number] [address] [place] [address], [place] [address] Jan, [facility] [address] [id number] [address] [place] [address], [place] [address] Jan, [facility] [address] [id number] [address] [place] [address], [place] [address] Jan, [facility] [address] [id number] [address] [place] [address], [place] [address] Jan, [facility] [address] [id number] [address] [place] [address], [place] [address] Dec, [facility] [address] [id number] [address] [place] [address], [place] [address] Dec, [facility] [address] [id number] [address] [place] [address], [place] [address] Nov, [facility] [address] [id number] [address] [place] [address], [place] [address] Nov, [facility] [address] [id number] [address] [place] [address], [place] [address] Nov, [facility] [address] [id number] [address] [place] [address] [address] 05 Nov, 2011 [facility] [address] [id number] [address] [place] [address], [place] [address] 21 Oct, 2011 [facility] [address] [id number] [address] [place] [address], [place] [address] 06 Oct, 2011 [facility] [address] [id number] [address] [place] [address], [place] [address] 14 Sep, 2011 [facility] [address] [id number] [address] [place] [address], [place] [address] 10 Sep, 2011 [facility] [address] [id number] [address] [place] [address], [place] [address] 10 Sep, 2011 [facility] [address] [id number] [address] [place] [address], [place] [address] 11 May, 2011 [facility] [address] [id number] [address] [place] [address], [place] [address] 20 Nov, 2010 [facility] [address] [id number] [address] [place] [address], [place] [address] 29 Oct, 2010 [facility] [address] [id number] [address] [place] [address], [place] [address] 14 Oct, 2010 [facility] [address] [id number] [address] [place] [address], [place] [address] 08 Oct, 2010 [facility] [address] [id number] [address] [place] [address], [place] [address] 15 Sep, 2010 [facility] [address] [id number] [address] [place] [address], [place] [address] Sep, [facility] [address] [id number] [address] [place] [address], [place] [address] Aug, [facility] [address] [id number] [address] [place] [address], [place] [address] March, [facility] [address] [id number] [address] [place] [address], [place] [address] 17 Oct, 2009 [facility] [address] [id number] [address] [place] [address] Oct, [facility] [address] [id number] [address] [place] [address] Oct, [facility] [address] [id number] [address] [place] [address] Oct, [facility] [address] [id number] [address] [place] [address] Sep, [facility] [address] [id number] [address] [place] [address] Sep, [facility] [address] [id number] [address] [place] [address] Sep, [facility] [address] [id number] [address] [place] [address] Aug, [facility] [address] [facility] [id number] [address] [place] [address] Aug, [facility] [address] [id number] [address] [place] [address] Aug, [facility] [address] [facility] [id number] [address] [place] [address] Jan, IMMUNIZATIONS No Known Immunizations SOCIAL HISTORY Never Assessed REASON FOR VISIT Lab Results PLAN OF CARE VITAL SIGNS MEDICATIONS Unknown [...]
--- OUTSIDE RECORDS SUMMARY | 2020-06-13 16:38 | XMS REPORT ---
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 Name Role Phone SILVERIO GIBBSNETTE Unavailable PROBLEMS Type Condition ICD9-CM Code [id number] Code Onset Dates Condition S tatus SNOMED Code Problem Overactive bladder N32.81 Active 2 59265508 Problem Gastroesophageal reflux disease without esophagitis K21.9 Active 983415938 Problem Mixed hyperlipidemia E78.2 Active 155275081 Problem Type 2 diabetes mellitus without complications E11 .9 Active 614490744 Problem 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 current use of insulin Z79.4 Active 433688034 Problem Irritable bowel syndrome with diarrhea K58.0 Active 452195494 Problem Functional diarrhea K59.1 Active 08466978 Problem Diabetes mellitus E11.9 Active 73 295663 Problem Gastroesophageal reflux disease with esophagitis K 21.0 Active 113221271 Problem Chronic pain G89.29 Active 8886962 1 Problem Insomnia G47.00 Active 068803802 Problem HTN (hypertension) I10 Active 3 5569995 Problem Neuropathy G62.9 Active 060432486 Problem Depression F32.9 Active 37874992 Problem Hypothyroid E03.9 Active 29615835 Problem GERD (gastroesophageal reflux disease) K21.9 Active 347836702 ALLERGIES No Information SOCIAL HISTORY Never Assessed PLAN OF CARE VITAL SIGNS MEDICATIONS Medication Instructions Dosage Frequency Start Date End Date Duration S tatus MetFORMIN HCl ER 500 MG Orally 2 times a day 1 tablet with evening phi l 12h 30 days Active RESULTS No Results PROCEDURES [...]
--- OUTSIDE RECORDS SUMMARY | 2020-06-13 16:38 | XMS REPORT ---
Author Author Jah PARKER Organization [facility] Address [address] [place] [address] Care Team Providers Care Mothers Helper Name Role Phone PARKERSHAYLEE MckeonELE Unavailable PROBLEMS Type Condition ICD9-CM Code BWY96-CD Code Onset Dates Condition S tatus SNOMED Code Problem Gastroesophageal reflux disease with esophagitis K 21.0 Active 146162058 Problem detention current use of insulin Z79.4 Active 590940531 Problem Irritable bowel syndrome with diarrhea K58.0 Active 276294992 Problem Diabetes mellitus E11.9 Active 73 366860 Problem Recurrent major depressive disorder, in partial remission F33.41 Active 71883912 Problem Essential (primary) hypertension I10 Active 34778386 Problem Type 2 diabetes mellitus with hyperglycemia E11.65 Active 62688944 Problem Current non-adherence to medical treatment Z91.19 Active 4685472 Problem Pulmonary emphysema, unspecified emphysema type J4 3.9 Active 16126512 Problem Neuropathy G62.9 Active 758303084 Problem Hypothyroid E03.9 Active 04121500 Problem Thrombocytosis D47.3 Active 30111 09 Problem Overactive bladder N32.81 Active 2 11974313 Problem Chronic pain G89.29 Active 1399464 1 Problem Mixed hyperlipidemia E78.2 Active [id number] ALLERGIES No Information ENCOUNTERS Encounter Location Date Diagnosis [facility] [address] [facility] [id number] [address] [place] [address] March, [facility] [address] [facility] [id number] [address] [place] [address] March, Hypothyroid E03.9 [facility] [address] [facility] [id number] [address] [place] [address] March, Diabetes mellitus E11.9 and Hypothyroid E03.9 [facility] [address] 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9 [place] [id number] [address] [place] [address] Feb, [place] [address] [place] [id number] [address] [place] [address] Jan, Type 2 diabetes mellitus wit h hyperglycemia E11.65 ; 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 ; Essential (primary) hypertension I10 ; Pulmonary emphysema, unspecified emphysema type J43.9 ; Chronic pain G89.29 ; Controlled substance agreement signed Z79.899 ; Hypothyroid E03.9 ; Neuropathy G62.9 ; Gastroesophageal reflux disease with esophagitis K21.0 ; Overactive bladder N32.81 ; Depression F32.9 and Irritable bowel syndrome with diarrhea K58.0 [place] [address] [place] [id number] [address] [place] [address] Jan, [place] [address] [place] [id number] [address] [place] [address] Jan, Controlled substance agreeme nt signed Z79.899 [place] [address] 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 [id number] [address] [place] [address] Nov, Type 2 diabetes mellitus wit h hyperglycemia E11.65 and Current non- adherence to medical treatment Z91.19 [place] [address] [place] [id number] [address] [place] [address] Nov, [place] [address] [place] [id number] [address] [place] [address] Nov, Chronic pain G89.29 [place] [address] [facility] [id number] [address] [place] [address] Nov, [place] [address] [facility] [id number] [address] [place] [address] Nov, Hypothyroid E03.9 [place] [address] [id number] [address] [place] [address] Nov, Hypothyroid E03.9 [place] [address] [id number] [address] [place] [address] Nov, Pulmonary emphysema, unspeci fied emphysema type J43.9 and Irritable bowel syndrome with diarrhea K58.0 [place] [address] [facility] [id number] [address] [place] [address] Oct, [place] [address] [facility] [facility] [id number] [address] [place] [address] Oct, [place] [address] [facility] [id number] [address] [place] [address] Oct, [place] [address] [id number] [address] [place] [address] Oct, [place] [address] [facility] [id number] [address] [place] [address] Oct, Chronic pain G89.29 [place] [address] [place] [id number] [address] [place] [address] Oct, Diabetes mellitus E11.9 ; De pression F32.9 ; Mixed hyperlipidemia E78.2 ; Hypotension, unspecified hypotension type I95.9 ; Pulmonary emphysema, unspecified emphysema type J43.9 and Weight loss, unintentional R63.4 [place] [address] [place] [id number] [address] [place] [address] Oct, Chronic pain G89.29 [place] [address] [place] [id number] [address] [place] [address] Sep, Chronic pain G89.29 [place] [address] [place] [id number] [address] [place] [address] Sep, Hypothyroid E03.9 and Diabet es mellitus E11.9 [place] 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 [id number] [address] [place] [address] Aug, Chronic pain G89.29 [facility] [address] [facility] [facility] [id number] [address] [place] [address] Aug, Overactive bladder N32.81 ; Diabetes mellitus E11.9 and Chronic pain G89.29 [facility] [address] [facility] [id number] [address] [place] [address] Jul, [facility] [address] [facility] [facility] [id number] [address] [place] [address] Jun, [facility] [address] [place] [id number] [address] [place] [address] Jun, [facility] [address] [place] [id number] [place] [address] Jun, Hypothyroid E03.9 [facility] [address] [place] [id number] [place] [address] Jun, Diabetes mellitus E11.9 ; Hy pothyroid E03.9 ; Neuropathy G62.9 ; Chronic pain G89.29 and Neck mass R22.1 [facility] [address] [place] [id number] [address] [place] [address] Apr, [facility] [address] [place] [id number] [address] [place] [address] Apr, Acute cystitis without hemat uria N30.00 [facility] [address] [facility] [id number] [address] [place] [address] March, [facility] [address] [place] [id number] [address] [place] [address] March, [facility] [address] [place] [id number] [address] [place] [address] March, Near syncope R55 [facility] [address] [place] [id number] [address] [place] [address] Feb, [facility] [address] [place] [id number] [address] [place] [address] Feb, Chronic pain G89.29 [facility] [address] [facility] [facility] [id number] [address] [place] [address] Feb, [facility] [address] [facility] [facility] [id number] [address] [place] [address] Feb, [facility] [address] [facility] [id number] [address] [place] [address] Jan, Chronic pain G89.29 [facility] [address] [facility] [id number] [address] [place] [address] Jan, [facility] [address] [address] Jan, [facility] [address] [facility] [id number] [address] [place] [address] Jan, Diabetes mellitus E11.9 ; Hy pothyroid E03.9 ; GERD (gastroesophageal reflux disease) K21.9 ; Insomnia G47.00 ; Functional diarrhea K59.1 ; Neuropathy G62.9 ; Depression F32.9 ; Chronic pain G89.29 ; Irritable bowel syndrome with diarrhea K58.0 ; Overactive bladder N32.81 ; Mixed hyperlipidemia E78.2 and Bronchitis J40 [facility] [address] [facility] [facility] [id number] [address] [place] [address] Dec, [facility] [address] [facility] [facility] [id number] [address] [place] [address] Dec, [facility] [address] [facility] [id number] [address] [place] [address] Dec, [facility] [address] [facility] [facility] [id number] [address] [place] [address] Dec, [facility] [address] [facility] [id number] [address] [place] [address] Dec, Chronic pain G89.29 [facility] [address] [facility] [id number] [address] [place] [address] Dec, [facility] [address] [place] [id number] [place] [address] Dec, [facility] [address] [place] [id number] [place] [address] Dec, Type 2 diabetes mellitus wit h foot ulcer E11.621 [facility] [address] [place] [id number] [place] [address] 17 Dec, 2016 Type 2 diabetes mellitus wit h foot ulcer E11.621 [facility] [address] [place] [id number] [address] [place] [address] Dec, HTN (hypertension) I10 ; Dep ression F32.9 ; Type 2 diabetes mellitus with foot ulcer E11.621 ; Functional diarrhea K59.1 ; Irritable bowel syndrome with diarrhea K58.0 ; Chronic pain G89.29 ; Insomnia G47.00 ; Overactive bladder N32.81 ; Mixed hyperlipidemia E78.2 ; Gastroesophageal reflux disease with esophagitis K21.0 and Acquired hypothyroidism E03.9 [place] [address] [address] Nov, [place] [address] [address] Oct, [place] [address] [address] Oct, [place] [address] [place] [id number] [place] [address] Oct, [place] [address] [place] [id number] [place] [address] Sep, Functional diarrhea K59.1 ; HTN (hypertension) I10 ; Diabetes mellitus E11.9 ; Depression F32.9 ; Overactive bladder N32.81 ; Mixed hyperlipidemia E78.2 ; Gastroesophageal reflux disease without esophagitis K21.9 ; Chronic pain G89.29 ; Insomnia G47.00 and Acquired hypothyroidism E03.9 [place] [address] [address] 04 Sep, 2016 [place] [address] [address] 11 Aug, 2016 Encounter for immunization Z 23 [place] [address] [address] 06 Aug, 2016 [place] [address] [address] 09 Jul, 2016 [place] [address] [address] Jun, Type 2 diabetes mellitus wit hout complications E11.9 ; HTN (hypertension) I10 ; Hypothyroid E03.9 ; Neuropathy G62.9 ; Depression F32.9 ; Chronic pain G89.29 ; GERD (gastroesophageal reflux disease) K21.9 ; Insomnia G47.00 ; Overactive bladder N32.81 ; Mixed hyperlipidemia E78.2 ; Diarrhea of infectious origin A09 and Environmental allergies Z91.09 [place] [address] [address] Apr, [place] [address] [address] March, Hypothyroidism, unspecified E03.9 and Mixed hyperlipidemia E78.2 [place] [address] [address] March, Diabetes mellitus E11.9 ; HT N (hypertension) I10 ; Hypothyroid E03.9 ; Depression F32.9 ; Overactive bladder N32.81 ; Other chronic pain G89.29 ; Lumbago with sciatica, unspecified side M54.40 ; Environmental allergies Z91.09 and Gastroesophageal reflux disease, esophagitis presence not specified K21.9 [place] [address] [address] March, [place] [address] [address] Jan, HTN (hypertension) I10 ; Hyp othyroid E03.9 ; Neuropathy G62.9 ; Diabetes mellitus E11.9 ; Chronic pain G89.29 ; GERD (gastroesophageal reflux disease) K21.9 ; Overactive bladder N32.81 and Depression F32.9 [facility] [address] [facility] [id number] [address] [place] [address] 12 Dec, 2015 Ear pain, left H92.02 ; HTN (hypertension) I10 ; Hypothyroid E03.9 ; Neuropathy G62.9 ; Diabetes mellitus E11.9 ; Depression F32.9 ; GERD (gastroesophageal reflux disease) K21.9 ; Insomnia G47.00 and Overactive bladder N32.81 [place] [address] [place] [address] Nov, Overactive bladder N32.81 an d Chronic pain G89.29 [place] [address] [place] [id number] [address] [place] [address] Nov, Kidney failure N19 [place] [address] [place] [id number] [address] [place] [address] Nov, [place] [address] [place] [address] Nov, [place] [address] [place] [id number] [address] [place] [address] Nov, Diabetes mellitus E11.9 ; De pression F32.9 ; Chronic pain G89.29 ; GERD (gastroesophageal reflux disease) K21.9 ; Insomnia G47.00 ; HTN (hypertension) I10 ; Hypothyroid E03.9 ; COPD (chronic obstructive pulmonary disease) J44.9 ; Bladder incontinence R32 and Incontinence R32 [place] [address] [place] [id number] [address] [place] [address] Sep, Type 2 diabetes mellitus wit h foot ulcer E11.621 and Chromosomal abnormality, 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 [facility] [address] [place] [id number] [address] [place] [address] Sep, [place] [address] [address] Aug, [place] [address] [address] Aug, [place] [address] [address] Aug, HTN (hypertension) I10 ; Enc ounter for immunization Z23 ; Hypothyroid E03.9 ; Neuropathy G62.9 ; Diabetes mellitus E11.9 ; Depression F32.9 ; Chronic pain G89.29 ; GERD (gastroesophageal reflux disease) K21.9 ; Insomnia G47.00 and COPD (chronic obstructive pulmonary disease) J44.[address] [address] Jun, [address] [address] Jun, [address] [address] May, Essential hypertension, ivis gn 401.1 ; Unspecified hypothyroidism 244.9 ; Insomnia, unspecified 780.52 ; Shortness of breath 786.05 ; Depression 311 ; COPD (chronic obstructive pulmonary disease) 496 ; GERD (gastroesophageal reflux disease) 530.81 and Diabetes 1.5, 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 [address] May, [address] [address] May, [place] [address] [address] May, Shortness of breath 786.05 ; Essential hypertension, benign 401.1 ; Diabetes mellitus 250.00 ; Hyperlipidemia 272.4 ; Hypothyroid 244.9 ; Insomnia 780.52 and Cough 786.[address] [address] Apr, [place] [address] [id number] [address] [place] [address] March, Shortness of breath 786.05 ; Nausea with vomiting 787.01 ; Essential hypertension, benign 401.1 ; Diabetes mellitus 250.00 ; Hyperlipidemia 272.4 and Hypothyroid 244.9 [facility] [address] [id number] [address] [place] [address] Feb, [facility] [address] [id number] [address] [place] [address] Feb, [facility] [address] [id number] [address] [place] [address] Jan, [facility] [address] [id number] [address] [place] [address] Jan, [facility] [address] [facility] [facility] [id number] [address] [place] [address] Jan, [facility] [address] [id number] [address] [place] [address] Jan, [facility] [address] [facility] [facility] [id number] [address] [place] [address] Jan, [facility] [address] [facility] [facility] [id number] [address] [place] [address] Jan, [facility] [address] [facility] [facility] [id number] [address] [place] [address] Jan, [facility] [address] [id number] [address] [place] [address] Jan, [facility] [address] [id number] [address] [place] [address] Jan, [facility] [address] [id number] [address] [place] [address] Jan, [facility] [address] [facility] [facility] [id number] [address] [place] [address] Dec, [facility] [address] [id number] [address] [place] [address] Dec, 2014 [facility] [address] [id number] [address] [place] [address], [place] [address] Dec, 2014 [facility] [address] [id number] [address] [place] [address], [place] [address] Dec, 2014 [facility] [address] [id number] [address] [place] [address], [place] [address] Dec, 2014 [facility] [address] [id number] [address] [place] [address], [place] [address] Dec, 2014 [facility] [address] [id number] [address] [place] [address], [place] [address] Dec, 2014 [facility] [address] [id number] [address] [place] [address], [place] [address] Dec, 2014 [facility] [address] [id number] [address] [place] [address], [place] [address] Dec, 2014 [facility] [address] [id number] [address] [place] [address], [place] [address] Dec, 2014 [facility] [address] [id number] [address] [place] [address], [place] [address] Oct, [facility] [address] [id number] [address] [place] [address], [place] [address] Oct, [facility] [address] [id number] [address] [place] [address], [place] [address] Oct, [facility] [address] [id number] [address] [place] [address], [place] [address] Oct, [facility] [address] [id number] [address] [place] [address], [place] [address] Oct, [facility] [address] [id number] [address] [place] [address], [place] [address] Oct, [facility] [address] [id number] [address] [place] [address], [place] [address] Oct, [facility] [address] [id number] [address] [place] [address], [place] [address] 05 Oct, 2014 [facility] [address] [id number] [address] [place] [address], [place] [address] Oct, [facility] [address] [id number] [address] [place] [address], [place] [address] Oct, [facility] [address] [id number] [address] [place] [address], [place] [address] Oct, [facility] [address] [id number] [address] [place] [address], [place] [address] Oct, [facility] [address] [id number] [address] [place] [address], [place] [address] Oct, [facility] [address] [id number] [address] [place] [address], [place] [address] Oct, [facility] [address] [id number] [address] [place] [address], [place] [address] Sep, [facility] [address] [id number] [address] [place] [address], [place] [address] Sep, [facility] [address] [id number] [address] [place] [address], [place] [address] Sep, [facility] [address] [id number] [address] [place] [address], [place] [address] Sep, [facility] [address] [id number] [address] [place] [address], [place] [address] Sep, [facility] [address] [id number] [address] [place] [address], [place] [address] Sep, [facility] [address] [id number] [address] [place] [address], [place] [address] Sep, [facility] [address] [id number] [address] [place] [address], [place] [address] Sep, [facility] [address] [id number] [address] [place] [address], [place] [address] Sep, [facility] [address] [id number] [address] [place] [address], [place] [address] Aug, [facility] [address] [id number] [address] [place] [address], [place] [address] 20 Aug, 2014 [facility] [address] [id number] [address] [place] [address], [place] [address] 17 Aug, 2014 [facility] [address] [id number] [address] [place] [address], [place] [address] 17 Aug, 2014 [facility] [address] [id number] [address] [place] [address], [place] [address] 16 Aug, 2014 [facility] [address] [id number] [address] [place] [address], [place] [address] Aug, [facility] [address] [id number] [address] [place] [address], [place] [address] Aug, [facility] [address] [id number] [address] [place] [address], [place] [address] Aug, [facility] [address] [id number] [address] [place] [address], [place] [address] Aug, [facility] [address] [id number] [address] [place] [address], [place] [address] 29 Jul, 2013 [facility] [address] [id number] [address] [place] [address], [place] [address] 29 Sep, 2013 [facility] [address] [id number] [address] [place] [address], [place] [address] 25 Jul, 2013 [facility] [address] [id number] [address] [place] [address], [place] [address] 25 Jul, 2013 [facility] [address] [id number] [address] [place] [address], [place] [address] 25 Jul, 2013 [facility] [address] [id number] [address] [place] [address], [place] [address] 25 Jul, 2013 [facility] [address] [id number] [facility] [address] Jul, [facility] [address] [id number] [facility] [address] Jul, [facility] [address] [id number] [facility] [place] [address] Jul, [facility] [address] [id number] [facility] [address] Jul, [facility] [address] [id number] [facility] [address] Jun, [facility] [address] [id number] [address] [place] [address], [place] [address] Jun, [facility] [address] [id number] [address] [place] [address], [place] [address] Jun, [facility] [address] [id number] [address] [place] [address], [place] [address] Jun, [facility] [address] [id number] [address] [place] [address], [place] [address] Jun, [facility] [address] [id number] [address] [place] [address], [place] [address] Jun, [facility] [address] [id number] [address] [place] [address], [place] [address] Jun, [facility] [address] [id number] [address] [place] [address], [place] [address] Jun, [facility] [address] [id number] [address] [place] [address], [place] [address] Jun, [facility] [address] [id number] [address] [place] [address], [place] [address] Jun, [facility] [address] [id number] [address] [place] [address], [place] [address] Jun, [facility] [address] [id number] [address] [place] [address], [place] [address] Jun, [facility] [address] [id number] [facility] [address] May, [facility] [address] [id number] [address] [place] [address], [place] [address] May, [facility] [address] [id number] [address] [place] [address], [place] [address] May, [facility] [address] [id number] [address] [place] [address], [place] [address] May, [facility] [address] [id number] [address] [place] [address], [place] [address] May, [facility] [address] [id number] [address] [place] [address], [place] [address] May, [facility] [address] [id number] [address] [place] [address], [place] [address] March, [facility] [address] [id number] [address] [place] [address], [place] [address] March, [facility] [address] [id number] [address] [place] [address], [place] [address] March, [facility] [address] [id number] [address] [place] [address], [place] [address] March, [facility] [address] [id number] [address] [place] [address], [place] [address] March, [facility] [address] [id number] [address] [place] [address], [place] [address] March, [facility] [address] [id number] [address] [place] [address], [place] [address] Feb, [facility] [address] [id number] [address] [place] [address], [place] [address] Feb, [facility] [address] [id number] [address] [place] [address], [place] [address] Feb, [facility] [address] [id number] [facility] [address] Feb, [facility] [address] [id number] [address] [place] [address], [place] [address] Jan, [facility] [address] [id number] [facility] [address] Jan, [facility] [address] [id number] [address] [place] [address], [place] [address] Jan, [facility] [address] [id number] [address] [place] [address], [place] [address] Jan, [facility] [address] [id number] [address] [place] [address], [place] [address] Jan, [facility] [address] [id number] [address] [place] [address], [place] [address] Jan, [facility] [address] [id number] [address] [place] [address], [place] [address] Jan, [facility] [address] [id number] [address] [place] [address], [place] [address] Jan, [facility] [address] [id number] [address] [place] [address], [place] [address] Jan, [facility] [address] [id number] [address] [place] [address], [place] [address] Jan, [facility] [address] [id number] [address] [place] [address], [place] [address] Jan, [facility] [address] [id number] [address] [place] [address], [place] [address] Jan, [facility] [address] [id number] [address] [place] [address], [place] [address] Dec, [facility] [address] [id number] [address] [place] [address], [place] [address] Dec, [facility] [address] [id number] [address] [place] [address], [place] [address] Dec, [facility] [address] [id number] [address] [place] [address], [place] [address] Dec, [facility] [address] [id number] [address] [place] [address], [place] [address] Dec, [facility] [address] [id number] [address] [place] [address], [place] [address] Dec, [facility] [address] [id number] [address] [place] [address], [place] [address] Nov, [facility] [address] [id number] [address] [place] [address], [place] [address] Nov, [facility] [address] [id number] [address] [place] [address], [place] [address] Oct, [facility] [address] [id number] [address] [place] [address], [place] [address] Oct, [facility] [address] [id number] [address] [place] [address], [place] [address] Oct, [facility] [address] [id number] [address] [place] [address], [place] [address] Oct, [facility] [address] [id number] [address] [place] [address], [place] [address] Oct, [facility] [address] [id number] [address] [place] [address], [place] [address] Oct, [facility] [address] [id number] [address] [place] [address] Sep, [facility] [address] [id number] [address] [place] [address], [place] [address] Sep, [facility] [address] [id number] [address] [place] [address], [place] [address] Sep, [facility] [address] [id number] [address] [place] [address], [place] [address] Sep, [facility] [address] [id number] [address] [place] [address], [place] [address] Aug, [facility] [address] [id number] [address] [place] [address], [place] [address] Aug, [facility] [address] [id number] [address] [place] [address], [place] [address] Aug, [facility] [address] [id number] [address] [place] [address], [place] [address] 17 Jul, 2013 [facility] [address] [id number] [address] [place] [address], [place] [address] 14 Jul, 2013 [facility] [address] [id number] [address] [place] [address], [place] [address] Jul, [facility] [address] [id number] [address] [place] [address], [place] [address] Jun, [facility] [address] [id number] [address] [place] [address], [place] [address] Jun, [facility] [address] [id number] [address] [place] [address], [place] [address] Jun, [facility] [address] [id number] [address] [place] [address], [place] [address] Apr, [facility] [address] [id number] [address] [place] [address], [place] [address] Apr, [facility] [address] [id number] [address] [place] [address], [place] [address] March, [facility] [address] [id number] [address] [place] [address], [place] [address] March, [facility] [address] [id number] [address] [place] [address], [place] [address] March, [facility] [address] [id number] [address] [place] [address], [place] [address] March, [facility] [address] [id number] [address] [place] [address], [place] [address] Feb, [facility] [address] [id number] [address] [place] [address], [place] [address] Jan, [facility] [address] [id number] [address] [place] [address], [place] [address] 13 Dec, 2012 [facility] [address] [id number] [address] [place] [address], [place] [address] 08 Dec, 2012 [facility] [address] [id number] [address] [place] [address], [place] [address] 07 Dec, 2012 [facility] [address] [id number] [address] [place] [address], [place] [address] Nov, [facility] [address] [id number] [address] [place] [address], [place] [address] Oct, [facility] [address] [id number] [address] [place] [address], [place] [address] Oct, [facility] [address] [id number] [address] [place] [address], [place] [address] Sep, [facility] [address] [id number] [address] [place] [address], [place] [address] Sep, [facility] [address] [id number] [address] [place] [address], [place] [address] Sep, [facility] [address] [id number] [address] [place] [address], [place] [address] Sep, [facility] [address] [id number] [address] [place] [address] Sep, [facility] [address] [id number] [address] [place] [address], [place] [address] Sep, [facility] [address] [id number] [address] [place] [address], [place] [address] Sep, [facility] [address] [id number] [address] [place] [address], [place] [address] 16 Aug, 2012 [facility] [address] [id number] [address] [place] [address] 16 Aug, 2012 [facility] [address] [id number] [address] [place] [address], [place] [address] 10 Aug, 2012 [facility] [address] [id number] [address] [place] [address], [place] [address] 10 Aug, 2012 [facility] [address] [id number] [address] [place] [address], [place] [address] 08 Aug, 2012 [facility] [address] [id number] [address] [place] [address], [place] [address] 08 Aug, 2012 [facility] [address] [id number] [address] [place] [address], [place] [address] Aug, [facility] [address] [id number] [address] [place] [address], [place] [address] Aug, [facility] [address] [id number] [address] [place] [address], [place] [address] Jul, [facility] [address] [id number] [address] [place] [address], [place] [address] Jul, [facility] [address] [id number] [address] [place] [address], [place] [address] Jun, [facility] [address] [id number] [address] [place] [address], [place] [address] May, [facility] [address] [id number] [address] [place] [address], [place] [address] Apr, [facility] [address] [id number] [address] [place] [address], [place] [address] Apr, [facility] [address] [id number] [address] [place] [address], [place] [address] Apr, [facility] [address] [id number] [address] [place] [address], [place] [address] March, [facility] [address] [id number] [address] [place] [address], [place] [address] March, [facility] [address] [id number] [address] [place] [address], [place] [address] March, [facility] [address] [id number] [address] [place] [address], [place] [address] March, [facility] [address] [id number] [address] [place] [address], [place] [address] March, [facility] [address] [id number] [address] [place] [address], [place] [address] March, [facility] [address] [id number] [address] [place] [address], [place] [address] March, [facility] [address] [id number] [address] [place] [address], [place] [address] Jan, [facility] [address] [id number] [address] [place] [address], [place] [address] Jan, [facility] [address] [id number] [address] [place] [address], [place] [address] Jan, [facility] [address] [id number] [address] [place] [address], [place] [address] Jan, [facility] [address] [id number] [address] [place] [address], [place] [address] Jan, [facility] [address] [id number] [address] [place] [address], [place] [address] Dec, [facility] [address] [id number] [address] [place] [address], [place] [address] Dec, [facility] [address] [id number] [address] [place] [address], [place] [address] Nov, [facility] [address] [id number] [address] [place] [address], [place] [address] Nov, [facility] [address] [id number] [address] [place] [address], [place] [address] Nov, [facility] [address] [id number] [address] [place] [address] [address] 05 Nov, 2011 [facility] [address] [id number] [address] [place] [address], [place] [address] 21 Oct, 2011 [facility] [address] [id number] [address] [place] [address], [place] [address] 06 Oct, 2011 [facility] [address] [id number] [address] [place] [address], [place] [address] 14 Sep, 2011 [facility] [address] [id number] [address] [place] [address], [place] [address] 10 Sep, 2011 [facility] [address] [id number] [address] [place] [address], [place] [address] 10 Sep, 2011 [facility] [address] [id number] [address] [place] [address], [place] [address] 11 May, 2011 [facility] [address] [id number] [address] [place] [address], [place] [address] 20 Nov, 2010 [facility] [address] [id number] [address] [place] [address], [place] [address] 29 Oct, 2010 [facility] [address] [id number] [address] [place] [address], [place] [address] 14 Oct, 2010 [facility] [address] [id number] [address] [place] [address], [place] [address] 08 Oct, 2010 [facility] [address] [id number] [address] [place] [address], [place] [address] 15 Sep, 2010 [facility] [address] [id number] [address] [place] [address], [place] [address] Sep, [facility] [address] [id number] [address] [place] [address], [place] [address] Aug, [facility] [address] [id number] [address] [place] [address], [place] [address] March, [facility] [address] [id number] [address] [place] [address], [place] [address] 17 Oct, 2009 [facility] [address] [id number] [address] [place] [address] Oct, [facility] [address] [id number] [address] [place] [address] Oct, [facility] [address] [id number] [address] [place] [address] Oct, [facility] [address] [id number] [address] [place] [address] Sep, [facility] [address] [id number] [address] [place] [address] Sep, [facility] [address] [id number] [address] [place] [address] Sep, [facility] [address] [facility] [id number] [address] [place] [address] Aug, [facility] [address] [facility] [id number] [address] [place] [address] Aug, [facility] [address] [id number] [address] [place] [address] Aug, [facility] [address] [facility] [id number] [address] [place] [address] Jan, IMMUNIZATIONS No Known Immunizations SOCIAL HISTORY [...]
--- OUTSIDE RECORDS SUMMARY | 2020-06-13 16:39 | XMS REPORT ---
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 Name Role Phone Migration, Doctor Unavailable Unavailable PROBLEMS Type Condition ICD9-CM Code [id number] Code Onset Dates Condition S tatus SNOMED Code Problem Neuropathy G62.9 Active 498062869 Problem Chronic pain G89.29 Active 0617354 1 Problem Overactive bladder N32.81 Active 2 73268321 Problem Hypothyroid E03.9 Active 54288356 Problem Irritable bowel syndrome with diarrhea K58.0 Active 779003947 Problem [facility] current use of insulin Z79.4 Active 696475398 Problem Type 2 diabetes mellitus with hyperglycemia E11.65 Active 35711779 Problem Chronic obstructive pulmonary disease, unspecified COPD ty pe J44.9 Active 30587325 Problem Gastroesophageal reflux disease with esophagitis K 21.0 Active 247824735 Problem Major depressive disorder, recurrent, in full remission F33.42 Active 34802741 Problem Mixed hyperlipidemia E78.2 Active 415488746 Problem Essential (primary) hypertension I10 Active 94119423 Problem Anxiety disorder, unspecified type F41.9 Active 486055298 Problem Gastroparesis K31.84 Active 822145 006 Problem 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 Active [id number] ALLERGIES No Information ENCOUNTERS Encounter Location Date Diagnosis [facility] [address] [facility] [id number] [address] [place] [address] Jul, Chronic pain G89.29 [facility] [address] [facility] [id number] [address] [place] [address] Jun, Other chronic pain G89.29 [facility] [address] [facility] [id number] [address] [place] [address] Jun, [facility] [address] [facility] [id number] [address] [place] [address] Jun, Chronic pain G89.29 [facility] [address] [place] [id number] [address] [place] [address] Jun, Neuropathy G62.9 [place] [address] [place] [address] Jun, Encounter for Medicare [facility] wellness exam Z00.00 ; Type 2 diabetes mellitus with hyperglycemia E11.65 ; Mixed hyperlipidemia E78.2 ; Hypothyroid E03.9 ; Gastroesophageal reflux disease with esophagitis K21.0 ; Essential (primary) hypertension I10 ; Major depressive disorder, recurrent, in full remission F33.42 ; Chronic obstructive pulmonary disease, unspecified COPD type J44.9 ; Neuropathy G62.9 and Encounter for immunization Z23 [place] [address] [address] Jun, Irritable bowel syndrome wit h diarrhea K58.0 [place] [address] [address] May, Chronic pain G89.29 [place] [address] [place] [id number] [address] [place] [address] May, Type 2 diabetes mellitus wit h hyperglycemia E11.65 and Neuropathy G62.9 [place] [address] [place] [id number] [place] [address] May, Chronic pain G89.29 [place] [address] [place] [id number] [place] [address] Apr, Poison maryam dermatitis L23.7 [place] [address] [place] [id number] [address] [place] [address] Apr, Chronic pain G89.29 [place] [address] [facility] [id number] [address] [place] [address] March, Type 2 diabetes mellitus wit h hyperglycemia E11.65 [place] [address] [facility] [id number] [address] [place] [address] March, Chronic pain G89.29 [place] [address] [facility] [id number] [address] [place] [address] March, [facility] [place] [address] [place] [address] Feb, [facility] [address] [facility] [id number] [address] [place] [address] Feb, Other chronic pain G89.29 an d Chronic pain G89.29 [facility] [address] [facility] [id number] [address] [place] [address] Jan, Mixed hyperlipidemia E78.2 [facility] [address] [facility] [id number] [address] [place] [address] Jan, Chronic pain G89.29 [facility] [address] [facility] [id number] [address] [place] [address] Jan, Type 2 diabetes mellitus wit h hyperglycemia E11.65 ; Mixed hyperlipidemia E78.2 ; 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 ; Acquired hypothyroidism E03.9 and Essential (primary) hypertension I10 [facility] [address] [facility] [id number] [address] [place] [address] Dec, Chronic pain G89.29 [facility] [address] [facility] [id number] [address] [place] [address] Nov, Chronic pain G89.29 [facility] [address] [facility] [id number] [address] [place] [address] Nov, [facility] [address] [facility] [id number] [address] [place] [address] Oct, Chronic pain G89.29 [facility] [address] [facility] [id number] [address] [place] [address] Oct, [facility] [address] [facility] [id number] [address] [place] [address] Sep, [facility] [address] [facility] [id number] [address] [place] [address] Sep, Type 2 diabetes mellitus wit h hyperglycemia E11.65 [facility] [address] [place] [address] Sep, Chronic pain G89.29 [place] [address] [address] Sep, [place] [address] [place] [id number] [address] [place] [address] Sep, Type 2 diabetes mellitus wit h hyperglycemia E11.65 ; Irritable bowel syndrome with diarrhea K58.0 ; Gastroparesis K31.84 ; 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 and Dermatitis L30.9 [place] [address] [place] [address] Aug, Chronic pain G89.29 [place] [address] [address] Jul, Chronic pain G89.29 [place] [address] [address] Jun, Type 2 diabetes mellitus wit h hyperglycemia E11.65 ; Neuropathy G62.9 ; Recurrent major depressive disorder, in partial remission F33.41 ; Chronic pain G89.29 and Hypertriglyceridemia E78.1 [place] [address] [place] [id number] [address] [place] [address] Jun, Hypothyroid E03.9 [place] [address] [address] Jun, Major depressive disorder, r ecurrent episode, moderate F33.1 and Anxiety disorder, unspecified type F41.9 [place] [address] [place] [address] Jun, [place] [address] [address] Jun, Type 2 diabetes mellitus wit h hyperglycemia E11.65 ; [facility] current use of insulin Z79.4 ; Recurrent major depressive disorder, in partial remission F33.41 ; Hypothyroid E03.9 ; Candidal dermatitis B37.2 and Weakness generalized R53.1 [facility] [address] [id number] [address] [place] [address] May, [facility] [address] [facility] [id number] [address] [place] [address] May, [facility] [address] [facility] [id number] [address] [place] [address] May, [facility] [address] [id number] [address] [place] [address] May, Generalized abdominal pain R 10.84 and Candidal dermatitis B37.2 [place] [address] [facility] [id number] [address] [place] [address] May, [place] [address] [facility] [id number] [address] [place] [address] May, [place] [address] [place] [id number] [place] [address] May, Nodular radiologic density R 93.8 ; Weight loss, unintentional R63.4 and Pulmonary emphysema, unspecified emphysema type J43.9 [place] [address] [place] [id number] [place] [address] May, Chronic pain G89.29 [place] [address] [place] [id number] [place] [address] May, Syncope and collapse R55 ; C hronic fatigue R53.[address] lung screening R91.8 [place] [address] [facility] [id number] [address] [place] [address] May, [place] [address] [facility] [id number] [address] [place] [address] Apr, Chronic fatigue R53.82 ; Abn ormal chest CT R93.8 ; Elevated erythrocyte sedimentation rate R70.0 ; Hypothyroid E03.9 and Recurrent major depressive disorder, in partial remission F33.41 [place] [address] [place] [id number] [place] [address] Apr, Hypothyroid E03.9 [facility] [address] [facility] [id number] [address] [place] [address] Apr, Depression F32.9 [facility] [address] [facility] [id number] [address] [place] [address] Apr, [place] [address] [facility] [id number] [address] [place] [address] March, [place] [address] [facility] [id number] [address] [place] [address] March, Hypothyroid E03.9 [place] [address] [facility] [id number] [address] [place] [address] March, Diabetes mellitus E11.9 and Hypothyroid E03.9 [place] [address] [facility] [id number] [address] [place] [address] March, Diabetes mellitus E11.9 [place] [address] [facility] [id number] [address] [place] [address] March, Hypothyroid E03.9 and Elevat ed liver enzymes R74.8 [place] [address] [facility] [id number] [address] [place] [address] March, Type 2 diabetes mellitus wit h [...] major depressive disorder, in partial remission F33.41 [place] [address] [facility] [id number] [address] [place] [address] Feb, Chronic pain G89.29 [place] [address] [facility] [id number] [address] [place] [address] Feb, Type 2 diabetes mellitus wit h hyperglycemia E11.65 and Skin lesion of scalp L98.9 [place] [address] [place] [id number] [place] [address] Feb, [place] [address] [place] [id number] [address] [place] [address] Jan, Type 2 diabetes mellitus wit h hyperglycemia E11.65 ; 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 ; Essential (primary) hypertension I10 ; Pulmonary emphysema, unspecified emphysema type J43.9 ; Chronic pain G89.29 ; Controlled substance agreement signed Z79.899 ; Hypothyroid E03.9 ; Neuropathy G62.9 ; Gastroesophageal reflux disease with esophagitis K21.0 ; Overactive bladder N32.81 ; Depression F32.9 and Irritable bowel syndrome with diarrhea K58.0 [place] [address] [place] [id number] [address] [place] [address] Jan, [place] [address] [address] Jan, Controlled substance agreeme nt signed Z79.899 [place] [address] [place] [id number] [place] [address] Dec, Type 2 diabetes mellitus wit h [...] treatment Z91.19 and Overweight (BMI 25.0-29.9) E66.3 [place] [address] [place] [id number] [place] [address] Dec, Controlled substance agreeme nt signed Z79.899 [place] [address] [place] [address] Nov, Type 2 diabetes mellitus wit h hyperglycemia E11.65 and Current non- adherence to medical treatment Z91.19 [facility] [address] [facility] [id number] [address] [place] [address] Nov, [facility] [address] [facility] [id number] [address] [place] [address] Nov, Chronic pain G89.29 [facility] [address] [facility] [id number] [address] [place] [address] Nov, [facility] [address] [facility] [id number] [address] [place] [address] Nov, Hypothyroid E03.9 [place] [address] [facility] [id number] [address] [place] [address] Nov, Hypothyroid E03.9 [place] [address] [facility] [id number] [address] [place] [address] Nov, Pulmonary emphysema, unspeci fied emphysema type J43.9 and Irritable bowel syndrome with diarrhea K58.0 [place] [address] [facility] [id number] [address] [place] [address] Oct, [place] [address] [place] [id number] [place] [address] Oct, [place] [address] [place] [id number] [place] [address] Oct, [place] [address] [place] [id number] [place] [address] Oct, [place] [address] [facility] [id number] [address] [place] [address] Oct, Chronic pain G89.29 [place] [address] [facility] [id number] [address] [place] [address] Oct, Diabetes mellitus E11.9 ; De pression F32.9 ; Mixed hyperlipidemia E78.2 ; Hypotension, unspecified hypotension type I95.9 ; Pulmonary emphysema, unspecified emphysema type J43.9 and Weight loss, unintentional R63.4 [place] [address] [place] [id number] [place] [address] Oct, Chronic pain G89.29 [facility] [address] [address] Sep, Chronic pain G89.29 [place] [address] [place] [id number] [place] [address] Sep, Hypothyroid E03.9 and Diabet es mellitus E11.9 [place] [address] [place] [id number] [place] [address] Aug, Type 2 diabetes mellitus wit h hyperglycemia E11.65 ; 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 ; Essential (primary) hypertension I10 ; Hypothyroid E03.9 ; Neuropathy G62.9 ; Chronic pain G89.29 ; Mixed hy perlipidemia E78.2 and Encounter for immunization Z23 [place] [address] [address] Aug, Chronic pain G89.29 [place] [address] [address] Aug, Overactive bladder N32.81 ; Diabetes mellitus E11.9 and Chronic pain G89.29 [place] [address] [place] [id number] [place] [address] Jul, [place] [address] [place] [id number] [address] [place] [address] Jun, [place] [address] [place] [id number] [place] [address] Jun, [place] [address] [place] [id number] [place] [address] Jun, Hypothyroid E03.9 [facility] [address] [place] [id number] [place] [address] Jun, Diabetes mellitus E11.9 ; Hy pothyroid E03.9 ; Neuropathy G62.9 ; Chronic pain G89.29 and Neck mass R22.1 [facility] [address] [facility] [id number] [address] [place] [address] Apr, [facility] [address] [facility] [id number] [address] [place] [address] Apr, Acute cystitis without hemat uria N30.00 [facility] [address] [facility] [id number] [address] [place] [address] March, [facility] [address] [facility] [id number] [address] [place] [address] March, [facility] [address] [facility] [id number] [address] [place] [address] March, Near syncope R55 [facility] [address] [facility] [id number] [address] [place] [address] Feb, [facility] [address] [facility] [id number] [address] [place] [address] Feb, Chronic pain G89.29 [facility] [address] [facility] [id number] [address] [place] [address] Feb, [facility] [address] [facility] [id number] [address] [place] [address] Feb, [facility] [address] [facility] [id number] [address] [place] [address] Jan, Chronic pain G89.29 [facility] [address] [facility] [id number] [address] [place] [address] Jan, [facility] [address] [facility] [id number] [address] [place] [address] Jan, [facility] [address] [facility] [id number] [address] [place] [address] 14 Jan, 2017 Diabetes mellitus E11.9 ; Hy pothyroid E03.9 ; GERD (gastroesophageal reflux disease) K21.9 ; Insomnia G47.00 ; Functional diarrhea K59.1 ; Neuropathy G62.9 ; Depression F32.9 ; Chronic pain G89.29 ; Irritable bowel syndrome with diarrhea K58.0 ; Overactive bladder N32.81 ; Mixed hyperlipidemia E78.2 and Bronchitis J40 [facility] [address] [facility] [id number] [address] [place] [address] Dec, [facility] [address] [facility] [id number] [address] [place] [address] Dec, [facility] [address] [facility] [id number] [address] [place] [address] Dec, [facility] [address] [facility] [id number] [address] [place] [address] Dec, [facility] [address] [facility] [id number] [address] [place] [address] Dec, Chronic pain G89.29 [facility] [address] [place] [address] Dec, [facility] [address] [place] [id number] [place] [address] Dec, [facility] [address] [place] [id number] [address] [place] [address] Dec, Type 2 diabetes mellitus wit h foot ulcer E11.621 [facility] [address] [address] 17 Dec, 2016 Type 2 diabetes mellitus wit h foot ulcer E11.621 [place] [address] [place] [address] 14 Dec, 2016 HTN (hypertension) I10 ; Dep ression F32.9 ; Type 2 diabetes mellitus with foot ulcer E11.621 ; Functional diarrhea K59.1 ; Irritable bowel syndrome with diarrhea K58.0 ; Chronic pain G89.29 ; Insomnia G47.00 ; Overactive bladder N32.81 ; Mixed hyperlipidemia E78.2 ; Gastroesophageal reflux disease with esophagitis K21.0 and Acquired hypothyroidism E03.9 [facility] [address] [id number] [place] [address] Nov, [place] [address] [address] Oct, [place] [address] [address] Oct, [place] [address] [address] Oct, [place] [address] [address] Sep, Functional diarrhea K59.1 ; HTN (hypertension) I10 ; Diabetes mellitus E11.9 ; Depression F32.9 ; Overactive bladder N32.81 ; Mixed hyperlipidemia E78.2 ; Gastroesophageal reflux disease without esophagitis K21.9 ; Chronic pain G89.29 ; Insomnia G47.00 and Acquired hypothyroidism E03.9 [place] [address] [address] Sep, [place] [address] [address] Aug, Encounter for immunization Z [address] [address] Aug, [place] [address] [address] Jul, [place] [address] [address] Jun, Type 2 diabetes mellitus wit hout complications E11.9 ; HTN (hypertension) I10 ; Hypothyroid E03.9 ; Neuropathy G62.9 ; Depression F32.9 ; Chronic pain G89.29 ; GERD (gastroesophageal reflux disease) K21.9 ; Insomnia G47.00 ; Overactive bladder N32.81 ; Mixed hyperlipidemia E78.2 ; Diarrhea of infectious origin A09 and Environmental allergies Z91.[address] [address] Apr, [place] [address] [place] [id number] [place] [address] March, Hypothyroidism, unspecified E03.9 and Mixed hyperlipidemia E78.2 [place] [address] [address] March, Diabetes mellitus E11.9 ; HT N (hypertension) I10 ; Hypothyroid E03.9 ; Depression F32.9 ; Overactive bladder N32.81 ; Other chronic pain G89.29 ; Lumbago with sciatica, unspecified side M54.40 ; Environmental allergies Z91.09 and Gastroesophageal reflux disease, esophagitis presence not specified K21.9 [place] [address] [address] March, [place] [address] [address] Jan, HTN (hypertension) I10 ; Hyp othyroid E03.9 ; Neuropathy G62.9 ; Diabetes mellitus E11.9 ; Chronic pain G89.29 ; GERD (gastroesophageal reflux disease) K21.9 ; Overactive bladder N32.81 and Depression F32.9 [place] [address] [address] Dec, Ear pain, left H92.02 ; HTN (hypertension) I10 ; Hypothyroid E03.9 ; Neuropathy G62.9 ; Diabetes mellitus E11.9 ; Depression F32.9 ; GERD (gastroesophageal reflux disease) K21.9 ; Insomnia G47.00 and Overactive bladder N32.81 [place] [address] [place] [id number] [place] [address] Nov, Overactive bladder N32.81 an d Chronic pain G89.29 [place] [address] [place] [id number] [place] [address] Nov, Kidney failure N19 [place] [address] [place] [id number] [place] [address] Nov, [place] [address] [address] Nov, [address] [address] Nov, Diabetes mellitus E11.9 ; De pression F32.9 ; Chronic pain G89.29 ; GERD (gastroesophageal reflux disease) K21.9 ; Insomnia G47.00 ; HTN (hypertension) I10 ; Hypothyroid E03.9 ; COPD (chronic obstructive pulmonary disease) J44.9 ; Bladder incontinence R32 and Incontinence R32 [address] [address] Sep, Type 2 diabetes mellitus wit h foot ulcer E11.621 and Chromosomal abnormality, 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 [address] Sep, [address] [address] Aug, [place] [address] [address] Aug, [address] [address] Aug, HTN (hypertension) I10 ; Enc ounter for immunization Z23 ; Hypothyroid E03.9 ; Neuropathy G62.9 ; Diabetes mellitus E11.9 ; Depression F32.9 ; Chronic pain G89.29 ; GERD (gastroesophageal reflux disease) K21.9 ; Insomnia G47.00 and COPD (chronic obstructive pulmonary disease) J44.9 [place] [address] [address] Jun, [address] [address] Jun, [place] [address] [address] May, Essential hypertension, ivis gn 401.1 ; Unspecified hypothyroidism 244.9 ; Insomnia, unspecified 780.52 ; Shortness of breath 786.05 ; Depression 311 ; COPD (chronic obstructive pulmonary disease) 496 ; GERD (gastroesophageal reflux disease) 530.81 and Diabetes 1.5, 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 [facility] [address] [address] May, [facility] [address] [address] May, [facility] [address] [address] May, Shortness of breath 786.05 ; Essential hypertension, benign 401.1 ; Diabetes mellitus 250.00 ; Hyperlipidemia 272.4 ; Hypothyroid 244.9 ; Insomnia 780.52 and Cough 786.2 [facility] [address] [address] Apr, [facility] [address] [address] March, Shortness of breath 786.05 ; Nausea with vomiting 787.01 ; Essential hypertension, benign 401.1 ; Diabetes mellitus 250.00 ; Hyperlipidemia 272.4 and Hypothyroid 244.9 [facility] [address] [place] [id number] [place] [address] Feb, [facility] [address] [place] [id number] [place] [id number] Feb, [facility] [id number] [place] [id number] Jan, [facility] [id number] [place] [id number] Jan, [facility] [address] [id number] Jan, [facility] [id number] [place] [id number] Jan, [facility] [address] [place] [id number] 05 Jan, 2014 [facility] [address] [id number] [address] [place] [address], [place] [id number] Jan, 2014 [facility] [address] [id number] [address] [place] [address], [place] [address] Jan, 2014 [facility] [address] [id number] [address] [place] [address], [place] [address] Jan, 2014 [facility] [address] [id number] [address] [place] [address], [place] [address] Jan, 2014 [facility] [address] [id number] [address] [place] [address], [place] [address] Jan, 2014 [facility] [address] [id number] [address] [place] [address], [place] [address] Dec, 2014 [facility] [address] [id number] [address] [place] [address], [place] [address] Dec, 2014 [facility] [address] [id number] [address] [place] [address], [place] [address] Dec, 2014 [facility] [address] [id number] [address] [place] [address], [place] [address] Dec, 2014 [facility] [address] [id number] [address] [place] [address], [place] [address] Dec, 2014 [facility] [address] [id number] [address] [place] [address], [place] [address] Dec, 2014 [facility] [address] [id number] [address] [place] [address], [place] [address] Dec, 2014 [facility] [address] [id number] [address] [place] [address], [place] [address] Dec, 2014 [facility] [address] [id number] [address] [place] [address], [place] [address] Dec, 2014 [facility] [address] [id number] [address] [place] [address], [place] [address] Dec, [facility] [address] [id number] [facility] [place] [address] Oct, [facility] [address] [id number] [address] [place] [address], [place] [address] Oct, [facility] [address] [id number] [address] [place] [address], [place] [address] Oct, [facility] [address] [id number] [address] [place] [address], [place] [address] Oct, [facility] [address] [id number] [address] [place] [address], [place] [address] Oct, [facility] [address] [id number] [address] [place] [address], [place] [address] Oct, [facility] [address] [id number] [address] [place] [address], [place] [address] Oct, [facility] [address] [id number] [address] [place] [address], [place] [address] Oct, [facility] [address] [id number] [address] [place] [address], [place] [address] Oct, [facility] [address] [id number] [address] [place] [address], [place] [address] Oct, [facility] [address] [id number] [address] [place] [address], [place] [address] Oct, [facility] [address] [id number] [address] [place] [address], [place] [address] Oct, [facility] [address] [id number] [address] [place] [address], [place] [address] Oct, [facility] [address] [id number] [address] [place] [address], [place] [address] Oct, [facility] [address] [id number] [address] [place] [address], [place] [address] Sep, [facility] [address] [id number] [address] [place] [address], [place] [address] Sep, [facility] [address] [id number] [address] [place] [address], [place] [address] Sep, [facility] [address] [id number] [address] [place] [address], [place] [address] Sep, [facility] [address] [id number] [address] [place] [address], [place] [address] Sep, [facility] [address] [id number] [address] [place] [address], [place] [address] Sep, [facility] [address] [id number] [address] [place] [address], [place] [address] Sep, [facility] [address] [id number] [address] [place] [address], [place] [address] Sep, [facility] [address] [id number] [address] [place] [address], [place] [address] Sep, [facility] [address] [id number] [address] [place] [address], [place] [address] Aug, [facility] [address] [id number] [address] [place] [address], [place] [address] Aug, [facility] [address] [id number] [address] [place] [address], [place] [address] Aug, [facility] [address] [id number] [address] [place] [address], [place] [address] Aug, [facility] [address] [id number] [address] [place] [address], [place] [address] 16 Aug, 2014 [facility] [address] [id number] [address] [place] [address], [place] [address] Aug, [facility] [address] [id number] [address] [place] [address], [place] [address] Aug, [facility] [address] [id number] [address] [place] [address], [place] [address] Aug, [facility] [address] [id number] [facility] [address] Aug, [facility] [address] [id number] [address] [place] [address], [place] [address] Jul, [facility] [address] [id number] [address] [place] [address], [place] [address] Jul, [facility] [address] [id number] [address] [place] [address], [place] [address] Jul, [facility] [address] [id number] [address] [place] [address], [place] [address] Jul, [facility] [address] [id number] [address] [place] [address], [place] [address] Jul, [facility] [address] [id number] [address] [place] [address], [place] [address] Jul, [facility] [address] [id number] [address] [place] [address], [place] [address] Jul, [facility] [address] [id number] [address] [place] [address], [place] [address] Jul, [facility] [address] [id number] [address] [place] [address], [place] [address] Jul, [facility] [address] [id number] [address] [place] [address], [place] [address] Jul, [facility] [address] [id number] [address] [place] [address], [place] [address] Jun, [facility] [address] [id number] [address] [place] [address], [place] [address] Jun, [facility] [address] [id number] [address] [place] [address], [place] [address] Jun, [facility] [address] [id number] [address] [place] [address], [place] [address] Jun, [facility] [address] [id number] [address] [place] [address], [place] [address] Jun, [facility] [address] [id number] [facility] [address] Jun, [facility] [address] [id number] [address] [place] [address], [place] [address] Jun, [facility] [address] [id number] [address] [place] [address], [place] [address] Jun, [facility] [address] [id number] [address] [place] [address], [place] [address] Jun, [facility] [address] [id number] [address] [place] [address], [place] [address] Jun, [facility] [address] [id number] [address] [place] [address], [place] [address] Jun, [facility] [address] [id number] [address] [place] [address], [place] [address] Jun, [facility] [address] [id number] [address] [place] [address], [place] [address] May, [facility] [address] [id number] [address] [place] [address], [place] [address] May, [facility] [address] [id number] [address] [place] [address], [place] [address] May, [facility] [address] [id number] [address] [place] [address], [place] [address] May, [facility] [address] [id number] [address] [place] [address], [place] [address] May, [facility] [address] [id number] [address] [place] [address], [place] [address] May, [facility] [address] [id number] [address] [place] [address], [place] [address] March, [facility] [address] [id number] [address] [place] [address], [place] [address] March, [facility] [address] [id number] [facility] [address] March, [facility] [address] [id number] [address] [place] [address], [place] [address] March, [facility] [address] [id number] [address] [place] [address], [place] [address] March, [facility] [address] [id number] [address] [place] [address], [place] [address] March, [facility] [address] [id number] [address] [place] [address], [place] [address] Feb, [facility] [address] [id number] [address] [place] [address], [place] [address] Feb, [facility] [address] [id number] [address] [place] [address], [place] [address] Feb, [facility] [address] [id number] [address] [place] [address], [place] [address] Feb, [facility] [address] [id number] [address] [place] [address], [place] [address] Jan, [facility] [address] [id number] [address] [place] [address], [place] [address] Jan, [facility] [address] [id number] [address] [place] [address], [place] [address] Jan, [facility] [address] [id number] [address] [place] [address], [place] [address] Jan, [facility] [address] [id number] [address] [place] [address], [place] [address] Jan, [facility] [address] [id number] [address] [place] [address], [place] [address] Jan, [facility] [address] [id number] [address] [place] [address], [place] [address] Jan, [facility] [address] [id number] [address] [place] [address], [place] [address] Jan, [facility] [address] [id number] [facility] [address] Jan, [facility] [address] [id number] [address] [place] [address], [place] [address] Jan, [facility] [address] [id number] [facility] [address] Jan, [facility] [address] [id number] [address] [place] [address], [place] [address] Jan, [facility] [address] [id number] [address] [place] [address], [place] [address] Dec, [facility] [address] [id number] [address] [place] [address], [place] [address] Dec, [facility] [address] [id number] [address] [place] [address], [place] [address] Dec, [facility] [address] [id number] [address] [place] [address], [place] [address] Dec, [facility] [address] [id number] [address] [place] [address], [place] [address] Dec, [facility] [address] [id number] [address] [place] [address], [place] [address] Dec, [facility] [address] [id number] [address] [place] [address], [place] [address] Nov, [facility] [address] [id number] [address] [place] [address], [place] [address] Nov, [facility] [address] [id number] [address] [place] [address], [place] [address] Oct, [facility] [address] [id number] [address] [place] [address], [place] [address] Oct, [facility] [address] [id number] [address] [place] [address], [place] [address] Oct, [facility] [address] [id number] [address] [place] [address], [place] [address] Oct, [facility] [address] [id number] [address] [place] [address], [place] [address] Oct, [facility] [address] [id number] [address] [place] [address], [place] [address] Oct, [facility] [address] [id number] [address] [place] [address], [place] [address] Sep, [facility] [address] [id number] [address] [place] [address], [place] [address] Sep, [facility] [address] [id number] [address] [place] [address], [place] [address] Sep, [facility] [address] [id number] [address] [place] [address], [place] [address] Sep, [facility] [address] [id number] [address] [place] [address], [place] [address] Aug, [facility] [address] [id number] [address] [place] [address], [place] [address] Aug, [facility] [address] [id number] [address] [place] [address], [place] [address] Aug, [facility] [address] [id number] [address] [place] [address], [place] [address] 17 Jul, 2013 [facility] [address] [id number] [address] [place] [address], [place] [address] 14 Jul, 2013 [facility] [address] [id number] [address] [place] [address], [place] [address] Jul, [facility] [address] [id number] [address] [place] [address], [place] [address] Jun, [facility] [address] [id number] [address] [place] [address], [place] [address] Jun, [facility] [address] [id number] [address] [place] [address], [place] [address] Jun, [facility] [address] [id number] [address] [place] [address], [place] [address] Apr, [facility] [address] [id number] [address] [place] [address], [place] [address] Apr, [facility] [address] [id number] [address] [place] [address], [place] [address] March, [facility] [address] [id number] [address] [place] [address], [place] [address] March, [facility] [address] [id number] [address] [place] [address], [place] [address] March, [facility] [address] [id number] [address] [place] [address], [place] [address] March, [facility] [address] [id number] [address] [place] [address], [place] [address] Feb, [facility] [address] [id number] [address] [place] [address], [place] [address] Jan, [facility] [address] [id number] [address] [place] [address], [place] [address] Dec, [facility] [address] [id number] [address] [place] [address], [place] [address] Dec, [facility] [address] [id number] [address] [place] [address], [place] [address] Dec, [facility] [address] [id number] [address] [place] [address], [place] [address] Nov, [facility] [address] [id number] [address] [place] [address], [place] [address] Oct, [facility] [address] [id number] [address] [place] [address], [place] [address] Oct, [facility] [address] [id number] [address] [place] [address], [place] [address] Sep, [facility] [address] [id number] [address] [place] [address] Sep, [facility] [address] [id number] [address] [place] [address], [place] [address] Sep, [facility] [address] [id number] [address] [place] [address] Sep, [facility] [address] [id number] [address] [place] [address], [place] [address] Sep, [facility] [address] [id number] [address] [place] [address], [place] [address] Sep, [facility] [address] [id number] [address] [place] [address], [place] [address] Sep, [facility] [address] [id number] [address] [place] [address], [place] [address] Aug, [facility] [address] [id number] [address] [place] [address] Aug, [facility] [address] [id number] [address] [place] [address] Aug, [facility] [address] [id number] [address] [place] [address], [place] [address] Aug, [facility] [address] [id number] [address] [place] [address] Aug, [facility] [address] [id number] [address] [place] [address] Aug, [facility] [address] [id number] [address] [place] [address] Aug, [facility] [address] [id number] [address] [place] [address] Aug, [facility] [address] [id number] [address] [place] [address], [place] [address] Jul, [facility] [address] [id number] [address] [place] [address] 12 Jul, 2012 [facility] [address] [id number] [id number] [address] Jun, [facility] [address] [id number] [address] [place] [address], [place] [address] May, [facility] [address] [id number] [address] [place] [address], [place] [address] Apr, [facility] [address] [id number] [address] [place] [address], [place] [address] Apr, [facility] [address] [id number] [address] [place] [address], [place] [address] Apr, [facility] [address] [id number] [address] [place] [address], [place] [address] March, [facility] [address] [id number] [address] [place] [address], [place] [address] March, [facility] [address] [id number] [address] [place] [address], [place] [address] March, [facility] [address] [id number] [address] [place] [address], [place] [address] March, [facility] [address] [id number] [address] [place] [address], [place] [address] March, [facility] [address] [id number] [address] [place] [address], [place] [address] March, [facility] [address] [id number] [address] [place] [address], [place] [address] March, [facility] [address] [id number] [address] [place] [address], [place] [address] Jan, [facility] [address] [id number] [address] [place] [address], [place] [address] Jan, [facility] [address] [id number] [address] [place] [address], [place] [address] Jan, [facility] [address] [id number] [address] [place] [address], [place] [address] 13 Jan, 2012 [facility] [address] [id number] [address] [place] [address], [place] [address] Jan, [facility] [address] [id number] [address] [place] [address], [place] [address] 08 Dec, 2011 [facility] [address] [id number] [address] [place] [address], [place] [address] Dec, [facility] [address] [id number] [address] [place] [address], [place] [address] Nov, [facility] [address] [id number] [address] [place] [address], [place] [address] Nov, [facility] [address] [id number] [address] [place] [address], [place] [address] Nov, [facility] [address] [id number] [address] [place] [address], [place] [address] Nov, [facility] [address] [id number] [address] [place] [address], [place] [address] Oct, [facility] [address] [id number] [address] [place] [address], [place] [address] Oct, [facility] [address] [id number] [address] [place] [address], [place] [address] Sep, [facility] [address] [id number] [address] [place] [address], [place] [address] Sep, [facility] [address] [id number] [address] [place] [address], [place] [address] Sep, [facility] [address] [id number] [address] [place] [address], [place] [address] May, [facility] [address] [id number] [address] [place] [address], [place] [address] Nov, [facility] [address] [id number] [address] [place] [address], [place] [address] Oct, [facility] [address] [id number] [address] [place] [address], [place] [address] 14 Oct, 2010 [facility] [address] [id number] [address] [place] [address], [place] [address] 08 Oct, 2010 [facility] [address] [id number] [address] [place] [address], [place] [address] 15 Sep, 2010 [facility] [address] [id number] [address] [place] [address], [place] [address] 02 Sep, 2010 [facility] [address] [id number] [address] [place] [address], [place] [address] 20 Aug, 2010 [facility] [address] [id number] [address] [place] [address], [place] [address] March, [facility] [address] [id number] [address] [place] [address], [place] [address] 17 Oct, 2009 [facility] [address] [id number] [address] [place] [address], [place] [address] 17 Oct, 2009 [facility] [address] [id number] [address] [place] [address], [place] [address] 10 Oct, 2009 [facility] [address] [id number] [address] [place] [address], [place] [address] 02 Oct, 2009 [facility] [address] [id number] [address] [place] [address], [place] [address] Sep, [facility] [address] [id number] [address] [place] [address], [place] [address] 12 Sep, 2009 [facility] [address] [id number] [address] [place] [address], [place] [address] 04 Sep, 2009 [facility] [address] [id number] [address] [place] [address], [place] [address] 27 Aug, 2009 [facility] [address] [id number] [address] [place] [address], [place] [address] 24 Aug, 2009 [facility] [address] [id number] [address] [place] [address], [place] [address] Aug, [facility] [address] [facility] [id number] [address] [place] [address] 10 Jan, 2009 IMMUNIZATIONS No Known Immunizations [...]
--- OUTSIDE RECORDS SUMMARY | 2020-06-13 16:39 | XMS REPORT ---
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 Name Role Phone BERNIE CHLOE Unavailable PROBLEMS Type Condition ICD9-CM Code HVX39-VI Code Onset Dates Condition S tatus SNOMED Code Problem Overactive bladder N32.81 Active 2 68507418 Problem Gastroesophageal reflux disease without esophagitis K21.9 Active 259064227 Problem Mixed hyperlipidemia E78.2 Active 898566426 Problem Type 2 diabetes mellitus without complications E11 .9 Active 897283859 Problem retirement current use of insulin Z79.4 Active 167154761 Problem Irritable bowel syndrome with diarrhea K58.0 Active 977722217 Problem Functional diarrhea K59.1 Active 27241024 Problem Diabetes mellitus E11.9 Active 73 812032 Problem Gastroesophageal reflux disease with esophagitis K 21.0 Active 188726749 Problem Chronic pain G89.29 Active 9446530 1 Problem Insomnia G47.00 Active 424095826 Problem HTN (hypertension) I10 Active 3 2379653 Problem Neuropathy G62.9 Active 568755041 Problem Depression F32.9 Active 30359228 Problem Hypothyroid E03.9 Active 70534784 Problem GERD (gastroesophageal reflux disease) K21.9 Active 807464030 ALLERGIES Unknown Allergies SOCIAL HISTORY No smoking Hx information available PLAN OF CARE VITAL SIGNS MEDICATIONS Medication Instructions Dosage Frequency Start Date End Date Duration S tatus Tramadol HCl 50 mg Orally every 6 hrs 1 tablet as needed 6h 30 Oct, 2016 28 days Active RESULTS No Results PROCEDURES No Known procedures IMMUNIZATIONS No Known Immunizations
--- OUTSIDE RECORDS SUMMARY | 2020-06-13 16:39 | XMS REPORT ---
Author Author Jah PARKER Organization [facility] Address [address] [place] [address] Care Team Providers Care Wastewater Manager Name Role Phone PARKERSHAYLEE MckeonELE Unavailable PROBLEMS Type Condition ICD9-CM Code XSL60-JT Code Onset Dates Condition S tatus SNOMED Code Problem Gastroesophageal reflux disease with esophagitis K 21.0 Active 379285710 Problem custodial current use of insulin Z79.4 Active 010443843 Problem Irritable bowel syndrome with diarrhea K58.0 Active 592568747 Problem Diabetes mellitus E11.9 Active 73 851043 Problem Recurrent major depressive disorder, in partial remission F33.41 Active 57487508 Problem Essential (primary) hypertension I10 Active 81629189 Problem Type 2 diabetes mellitus with hyperglycemia E11.65 Active 03351780 Problem Current non-adherence to medical treatment Z91.19 Active 8403608 Problem Pulmonary emphysema, unspecified emphysema type J4 3.9 Active 18910167 Problem Neuropathy G62.9 Active 109464899 Problem Hypothyroid E03.9 Active 56807334 Problem Thrombocytosis D47.3 Active 44992 09 Problem Overactive bladder N32.81 Active 2 06587105 Problem Chronic pain G89.29 Active 9654430 1 Problem Mixed hyperlipidemia E78.2 Active 660795634 ALLERGIES No Information ENCOUNTERS Encounter Location Date Diagnosis [facility] [address] [facility] [id number] [address] [place] [address] March, [facility] [address] [facility] [id number] [address] [place] [address] March, Hypothyroid E03.9 [facility] [address] [facility] [id number] [address] [place] [address] March, Diabetes mellitus E11.9 and Hypothyroid E03.9 [facility] [address] [facility] [id number] [address] [place] [address] March, Diabetes mellitus E11.9 [place] [address] [place] [id number] [address] [place] [address] March, Hypothyroid E03.9 and Elevat ed liver enzymes R74.8 [place] [address] [place] [id number] [address] [place] [address] March, Type 2 diabetes mellitus wit h hyperglycemia E11.65 ; oysterman current use of insulin Z79.4 ; Pulmonary emphysema, unspecified emphysema type J43.9 ; Hypothyroid E03.9 ; Neuropathy G62.9 ; Mixed hyperlipidemia E78.2 ; Chronic pain G89.29 ; Gastroesophageal reflux disease with esophagitis K21.0 ; Irritable bowel syndrome with diarrhea K58.0 ; Overactive bladder N32.81 and Recurrent major depressive disorder, in partial remission F33.41 [place] [address] [place] [id number] [address] [place] [address] Feb, Chronic pain G89.29 [place] [address] [address] Feb, Type 2 diabetes mellitus wit h hyperglycemia E11.65 and Skin lesion of scalp L98.9 [place] [id number] [address] [place] [address] Feb, [place] [address] [place] [id number] [address] [place] [address] Jan, Type 2 diabetes mellitus wit h hyperglycemia E11.65 ; oysterman current use of insulin Z79.4 ; Essential (primary) hypertension I10 ; Pulmonary emphysema, unspecified emphysema type J43.9 ; Chronic pain G89.29 ; Controlled substance agreement signed Z79.899 ; Hypothyroid E03.9 ; Neuropathy G62.9 ; Gastroesophageal reflux disease with esophagitis K21.0 ; Overactive bladder N32.81 ; Depression F32.9 and Irritable bowel syndrome with diarrhea K58.0 [place] [address] [place] [id number] [address] [place] [address] Jan, [place] [address] [place] [id number] [address] [place] [address] Jan, Controlled substance agreeme nt signed Z79.899 [place] [address] [facility] [id number] [address] [place] [address] 08 Dec, 2017 Type 2 diabetes mellitus wit h hyperglycemia E11.65 ; Controlled substance agreement signed Z79.899 ; oysterman current use of insulin Z79.4 ; Essential (primary) hypertension I10 ; Hypothyroid E03.9 ; Neuropathy G62.9 ; Depression F32.9 ; Mixed hyperlipidemia E78.2 ; Irritable bowel syndrome with diarrhea K58.0 ; Gastroesophageal reflux disease with esophagitis K21.0 ; Thrombocytosis D47.3 ; Current non-adherence to medical treatment Z91.19 and Overweight (BMI 25.0-29.9) E66.3 [place] [address] [place] [id number] [address] [place] [address] 02 Dec, 2017 Controlled substance agreeme nt signed Z79.899 [place] [address] [facility] [id number] [address] [place] [address] Nov, Type 2 diabetes mellitus wit h hyperglycemia E11.65 and Current non- adherence to medical treatment Z91.19 [place] [address] [place] [id number] [address] [place] [address] Nov, [place] [address] [place] [id number] [address] [place] [address] Nov, Chronic pain G89.29 [place] [address] [facility] [id number] [address] [place] [address] Nov, [place] [address] [facility] [id number] [address] [place] [address] Nov, Hypothyroid E03.9 [place] [address] [facility] [id number] [address] [place] [address] Nov, Hypothyroid E03.9 [place] [address] [facility] [id number] [address] [place] [address] Nov, Pulmonary emphysema, unspeci fied emphysema type J43.9 and Irritable bowel syndrome with diarrhea K58.0 [place] [address] [facility] [id number] [address] [place] [address] Oct, [place] [address] [facility] [id number] [address] [place] [address] Oct, [place] [address] [facility] [id number] [address] [place] [address] Oct, [place] [address] [facility] [id number] [address] [place] [address] Oct, [place] [address] [facility] [id number] [address] [place] [address] Oct, Chronic pain G89.29 [place] [address] [place] [id number] [address] [place] [address] Oct, Diabetes mellitus E11.9 ; De pression F32.9 ; Mixed hyperlipidemia E78.2 ; Hypotension, unspecified hypotension type I95.9 ; Pulmonary emphysema, unspecified emphysema type J43.9 and Weight loss, unintentional R63.4 [place] [address] [place] [id number] [address] [place] [address] Oct, Chronic pain G89.29 [place] [address] [place] [id number] [address] [place] [address] Sep, Chronic pain G89.29 [place] [address] [place] [id number] [address] [place] [address] Sep, Hypothyroid E03.9 and Diabet es mellitus E11.9 [place] [address] [facility] [id number] [address] [place] [address] Aug, Type 2 diabetes mellitus wit h hyperglycemia E11.65 ; oysterman current use of insulin Z79.4 ; Essential (primary) hypertension I10 ; Hypothyroid E03.9 ; Neuropathy G62.9 ; Chronic pain G89.29 ; Mixed hy perlipidemia E78.2 and Encounter for immunization Z23 [place] [address] [facility] [id number] [address] [place] [address] Aug, Chronic pain G89.29 [facility] [address] [facility] [id number] [address] [place] [address] Aug, Overactive bladder N32.81 ; Diabetes mellitus E11.9 and Chronic pain G89.29 [facility] [address] [facility] [id number] [address] [place] [address] Jul, [facility] [address] [facility] [id number] [address] [place] [address] Jun, [facility] [address] [place] [id number] [address] [place] [address] Jun, [facility] [address] [place] [id number] [place] [address] Jun, Hypothyroid E03.9 [facility] [address] [place] [id number] [place] [address] Jun, Diabetes mellitus E11.9 ; Hy pothyroid E03.9 ; Neuropathy G62.9 ; Chronic pain G89.29 and Neck mass R22.1 [facility] [address] [place] [id number] [address] [place] [address] Apr, [facility] [address] [place] [id number] [address] [place] [address] Apr, Acute cystitis without hemat uria N30.00 [facility] [address] [facility] [id number] [address] [place] [address] March, [facility] [address] [place] [id number] [address] [place] [address] March, [facility] [address] [place] [id number] [address] [place] [address] March, Near syncope R55 [facility] [address] [place] [id number] [address] [place] [address] Feb, [facility] [address] [place] [id number] [address] [place] [address] Feb, Chronic pain G89.29 [facility] [address] [facility] [id number] [address] [place] [address] Feb, [facility] [address] [facility] [id number] [address] [place] [address] Feb, [facility] [address] [facility] [id number] [address] [place] [address] Jan, Chronic pain G89.29 [facility] [address] [facility] [id number] [address] [place] [address] Jan, [facility] [address] [address] Jan, [facility] [address] [facility] [id number] [address] [place] [address] Jan, Diabetes mellitus E11.9 ; Hy pothyroid E03.9 ; GERD (gastroesophageal reflux disease) K21.9 ; Insomnia G47.00 ; Functional diarrhea K59.1 ; Neuropathy G62.9 ; Depression F32.9 ; Chronic pain G89.29 ; Irritable bowel syndrome with diarrhea K58.0 ; Overactive bladder N32.81 ; Mixed hyperlipidemia E78.2 and Bronchitis J40 [facility] [address] [facility] [id number] [address] [place] [address] Dec, [facility] [address] [facility] [id number] [address] [place] [address] Dec, [facility] [address] [facility] [id number] [address] [place] [address] Dec, [facility] [address] [facility] [id number] [address] [place] [address] Dec, [facility] [address] [facility] [id number] [address] [place] [address] Dec, Chronic pain G89.29 [facility] [address] [facility] [id number] [address] [place] [address] Dec, [facility] [address] [place] [id number] [address] [place] [address] Dec, [facility] [address] [place] [id number] [place] [address] Dec, Type 2 diabetes mellitus wit h foot ulcer E11.621 [facility] [address] [place] [id number] [address] [place] [address] 17 Dec, 2016 Type 2 diabetes mellitus wit h foot ulcer E11.621 [facility] [address] [place] [id number] [address] [place] [address] Dec, HTN (hypertension) I10 ; Dep ression F32.9 ; Type 2 diabetes mellitus with foot ulcer E11.621 ; Functional diarrhea K59.1 ; Irritable bowel syndrome with diarrhea K58.0 ; Chronic pain G89.29 ; Insomnia G47.00 ; Overactive bladder N32.81 ; Mixed hyperlipidemia E78.2 ; Gastroesophageal reflux disease with esophagitis K21.0 and Acquired hypothyroidism E03.9 [place] [address] [address] Nov, [place] [address] [address] Oct, [place] [address] [address] Oct, [place] [address] [place] [id number] [address] [place] [address] Oct, [place] [address] [place] [id number] [address] [place] [address] Sep, Functional diarrhea K59.1 ; HTN (hypertension) I10 ; Diabetes mellitus E11.9 ; Depression F32.9 ; Overactive bladder N32.81 ; Mixed hyperlipidemia E78.2 ; Gastroesophageal reflux disease without esophagitis K21.9 ; Chronic pain G89.29 ; Insomnia G47.00 and Acquired hypothyroidism E03.9 [place] [address] [id number] 04 Sep, 2016 [place] [address] [address] 11 Aug, 2016 Encounter for immunization Z 23 [place] [address] [address] 06 Aug, 2016 [place] [address] [address] 09 Jul, 2016 [place] [address] [address] Jun, Type 2 diabetes mellitus wit hout complications E11.9 ; HTN (hypertension) I10 ; Hypothyroid E03.9 ; Neuropathy G62.9 ; Depression F32.9 ; Chronic pain G89.29 ; GERD (gastroesophageal reflux disease) K21.9 ; Insomnia G47.00 ; Overactive bladder N32.81 ; Mixed hyperlipidemia E78.2 ; Diarrhea of infectious origin A09 and Environmental allergies Z91.09 [place] [address] [id number] Apr, [place] [address] [address] March, Hypothyroidism, unspecified E03.9 and Mixed hyperlipidemia E78.2 [place] [address] [address] March, Diabetes mellitus E11.9 ; HT N (hypertension) I10 ; Hypothyroid E03.9 ; Depression F32.9 ; Overactive bladder N32.81 ; Other chronic pain G89.29 ; Lumbago with sciatica, unspecified side M54.40 ; Environmental allergies Z91.09 and Gastroesophageal reflux disease, esophagitis presence not specified K21.9 [place] [address] [address] March, [place] [address] [address] Jan, HTN (hypertension) I10 ; Hyp othyroid E03.9 ; Neuropathy G62.9 ; Diabetes mellitus E11.9 ; Chronic pain G89.29 ; GERD (gastroesophageal reflux disease) K21.9 ; Overactive bladder N32.81 and Depression F32.9 [facility] [address] [facility] [id number] [address] [place] [address] 12 Dec, 2015 Ear pain, left H92.02 ; HTN (hypertension) I10 ; Hypothyroid E03.9 ; Neuropathy G62.9 ; Diabetes mellitus E11.9 ; Depression F32.9 ; GERD (gastroesophageal reflux disease) K21.9 ; Insomnia G47.00 and Overactive bladder N32.81 [place] [id number] [place] [address] Nov, Overactive bladder N32.81 an d Chronic pain G89.29 [place] [address] [place] [id number] [address] [place] [address] Nov, Kidney failure N19 [place] [address] [place] [id number] [address] [place] [address] Nov, [place] [id number] [place] [address] Nov, [place] [address] [place] [id number] [address] [place] [address] Nov, Diabetes mellitus E11.9 ; De pression F32.9 ; Chronic pain G89.29 ; GERD (gastroesophageal reflux disease) K21.9 ; Insomnia G47.00 ; HTN (hypertension) I10 ; Hypothyroid E03.9 ; COPD (chronic obstructive pulmonary disease) J44.9 ; Bladder incontinence R32 and Incontinence R32 [place] [address] [place] [id number] [address] [place] [address] Sep, Type 2 diabetes mellitus wit h foot ulcer E11.621 and Chromosomal abnormality, 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 [facility] [address] [place] [id number] [address] [place] [address] Sep, [place] [address] [address] Aug, [place] [address] [address] Aug, [place] [address] [address] Aug, HTN (hypertension) I10 ; Enc ounter for immunization Z23 ; Hypothyroid E03.9 ; Neuropathy G62.9 ; Diabetes mellitus E11.9 ; Depression F32.9 ; Chronic pain G89.29 ; GERD (gastroesophageal reflux disease) K21.9 ; Insomnia G47.00 and COPD (chronic obstructive pulmonary disease) J44.[address] [address] Jun, [address] [address] Jun, [address] [address] May, Essential hypertension, ivis gn 401.1 ; Unspecified hypothyroidism 244.9 ; Insomnia, unspecified 780.52 ; Shortness of breath 786.05 ; Depression 311 ; COPD (chronic obstructive pulmonary disease) 496 ; GERD (gastroesophageal reflux disease) 530.81 and Diabetes 1.5, 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 [address] May, [address] [address] May, [place] [address] [address] May, Shortness of breath 786.05 ; Essential hypertension, benign 401.1 ; Diabetes mellitus 250.00 ; Hyperlipidemia 272.4 ; Hypothyroid 244.9 ; Insomnia 780.52 and Cough 786.[address] [address] Apr, [place] [address] [id number] [address] [place] [address] March, Shortness of breath 786.05 ; Nausea with vomiting 787.01 ; Essential hypertension, benign 401.1 ; Diabetes mellitus 250.00 ; Hyperlipidemia 272.4 and Hypothyroid 244.9 [facility] [address] [id number] [address] [place] [address] Feb, [facility] [address] [id number] [address] [place] [address] Feb, [facility] [address] [id number] [address] [place] [address] Jan, [facility] [address] [id number] [address] [place] [address] Jan, [facility] [address] [facility] [id number] [address] [place] [address] Jan, [facility] [address] [id number] [address] [place] [address] Jan, [facility] [address] [facility] [id number] [address] [place] [address] Jan, [facility] [address] [facility] [id number] [address] [place] [address] Jan, [facility] [address] [facility] [id number] [address] [place] [address] Jan, [facility] [address] [id number] [address] [place] [address] Jan, [facility] [address] [id number] [address] [place] [address] Jan, [facility] [address] [id number] [address] [place] [address] Jan, [facility] [address] [facility] [id number] [address] [place] [address] Dec, [facility] [address] [id number] [address] [place] [address] Dec, 2014 [facility] [address] [id number] [address] [place] [address], [place] [address] Dec, 2014 [facility] [address] [id number] [address] [place] [address], [place] [address] Dec, 2014 [facility] [address] [id number] [address] [place] [address], [place] [address] Dec, 2014 [facility] [address] [id number] [address] [place] [address], [place] [address] Dec, 2014 [facility] [address] [id number] [address] [place] [address], [place] [address] Dec, 2014 [facility] [address] [id number] [address] [place] [address], [place] [address] Dec, 2014 [facility] [address] [id number] [address] [place] [address], [place] [address] Dec, 2014 [facility] [address] [id number] [address] [place] [address], [place] [address] Dec, 2014 [facility] [address] [id number] [address] [place] [address], [place] [address] Oct, [facility] [address] [id number] [address] [place] [address], [place] [address] Oct, [facility] [address] [id number] [address] [place] [address], [place] [address] Oct, [facility] [address] [id number] [address] [place] [address], [place] [address] Oct, [facility] [address] [id number] [address] [place] [address], [place] [address] Oct, [facility] [address] [id number] [address] [place] [address], [place] [address] Oct, [facility] [address] [id number] [address] [place] [address], [place] [address] Oct, [facility] [address] [id number] [address] [place] [address], [place] [address] 05 Oct, 2014 [facility] [address] [id number] [address] [place] [address], [place] [address] Oct, [facility] [address] [id number] [address] [place] [address], [place] [address] Oct, [facility] [address] [id number] [address] [place] [address], [place] [address] Oct, [facility] [address] [id number] [address] [place] [address], [place] [address] Oct, [facility] [address] [id number] [address] [place] [address], [place] [address] Oct, [facility] [address] [id number] [address] [place] [address], [place] [address] Oct, [facility] [address] [id number] [address] [place] [address], [place] [address] Sep, [facility] [address] [id number] [address] [place] [address], [place] [address] Sep, [facility] [address] [id number] [address] [place] [address], [place] [address] Sep, [facility] [address] [id number] [address] [place] [address], [place] [address] Sep, [facility] [address] [id number] [address] [place] [address], [place] [address] Sep, [facility] [address] [id number] [address] [place] [address], [place] [address] Sep, [facility] [address] [id number] [address] [place] [address], [place] [address] Sep, [facility] [address] [id number] [address] [place] [address], [place] [address] Sep, [facility] [address] [id number] [address] [place] [address], [place] [address] Sep, [facility] [address] [id number] [address] [place] [address], [place] [address] Aug, [facility] [address] [id number] [address] [place] [address], [place] [address] 20 Aug, 2014 [facility] [address] [id number] [address] [place] [address], [place] [address] 17 Aug, 2014 [facility] [address] [id number] [address] [place] [address], [place] [address] 17 Aug, 2014 [facility] [address] [id number] [address] [place] [address], [place] [address] 16 Aug, 2014 [facility] [address] [id number] [address] [place] [address], [place] [address] Aug, [facility] [address] [id number] [address] [place] [address], [place] [address] Aug, [facility] [address] [id number] [address] [place] [address], [place] [address] Aug, [facility] [address] [id number] [address] [place] [address], [place] [address] Aug, [facility] [address] [id number] [address] [place] [address], [place] [address] 29 Jul, 2013 [facility] [address] [id number] [address] [place] [address], [place] [address] 29 Sep, 2013 [facility] [address] [id number] [address] [place] [address], [place] [address] 25 Jul, 2013 [facility] [address] [id number] [address] [place], [place] [address], [place] [address] 25 Jul, 2013 [facility] [address] [id number] [address] [place] [address], [place] [address] 25 Jul, 2013 [facility] [address] [id number] [address] [place] [address], [place] [address] 25 Jul, 2013 [facility] [address] [id number] [facility] [place] [address] Jul, [facility] [address] [id number] [facility] [place] [address] Jul, [facility] [address] [id number] [facility] [place] [address] Jul, [facility] [address] [id number] [facility] [place] [address] Jul, [facility] [address] [id number] [facility] [place] [address] Jun, [facility] [address] [id number] [address] [place] [address], [place] [address] Jun, [facility] [address] [id number] [address] [place] [address], [place] [address] Jun, [facility] [address] [id number] [address] [place] [address], [place] [address] Jun, [facility] [address] [id number] [address] [place] [address], [place] [address] Jun, [facility] [address] [id number] [address] [place] [address], [place] [address] Jun, [facility] [address] [id number] [address] [place] [address], [place] [address] Jun, [facility] [address] [id number] [address] [place] [address], [place] [address] Jun, [facility] [address] [id number] [address] [place] [address], [place] [address] Jun, [facility] [address] [id number] [address] [place] [address], [place] [address] Jun, [facility] [address] [id number] [address] [place] [address], [place] [address] Jun, [facility] [address] [id number] [address] [place] [address], [place] [address] Jun, [facility] [address] [id number] [facility] [place] [address] May, [facility] [address] [id number] [address] [place] [address], [place] [address] May, [facility] [address] [id number] [address] [place] [address], [place] [address] May, [facility] [address] [id number] [address] [place] [address], [place] [address] May, [facility] [address] [id number] [address] [place] [address], [place] [address] May, [facility] [address] [id number] [address] [place] [address], [place] [address] May, [facility] [address] [id number] [address] [place] [address], [place] [address] March, [facility] [address] [id number] [address] [place] [address], [place] [address] March, [facility] [address] [id number] [address] [place] [address], [place] [address] March, [facility] [address] [id number] [address] [place] [address], [place] [address] March, [facility] [address] [id number] [address] [place] [address], [place] [address] March, [facility] [address] [id number] [address] [place] [address], [place] [address] March, [facility] [address] [id number] [address] [place] [address], [place] [address] Feb, [facility] [address] [id number] [address] [place] [address], [place] [address] Feb, [facility] [address] [id number] [address] [place] [address], [place] [address] Feb, [facility] [address] [id number] [facility] [place] [address] Feb, [facility] [address] [id number] [address] [place] [address], [place] [address] Jan, [facility] [address] [id number] [facility] [place] [address] Jan, [facility] [address] [id number] [address] [place] [address], [place] [address] Jan, [facility] [address] [id number] [address] [place] [address], [place] [address] Jan, [facility] [address] [id number] [address] [place] [address], [place] [address] Jan, [facility] [address] [id number] [address] [place] [address], [place] [address] Jan, [facility] [address] [id number] [address] [place] [address], [place] [address] Jan, [facility] [address] [id number] [address] [place] [address], [place] [address] Jan, [facility] [address] [id number] [address] [place] [address], [place] [address] Jan, [facility] [address] [id number] [address] [place] [address], [place] [address] Jan, [facility] [address] [id number] [address] [place] [address], [place] [address] Jan, [facility] [address] [id number] [address] [place] [address], [place] [address] Jan, [facility] [address] [id number] [address] [place] [address], [place] [address] Dec, [facility] [address] [id number] [address] [place] [address], [place] [address] Dec, [facility] [address] [id number] [address] [place] [address], [place] [address] Dec, [facility] [address] [id number] [address] [place] [address], [place] [address] Dec, [facility] [address] [id number] [address] [place] [address], [place] [address] Dec, [facility] [address] [id number] [address] [place] [address], [place] [address] Dec, [facility] [address] [id number] [address] [place] [address], [place] [address] Nov, [facility] [address] [id number] [address] [place] [address], [place] [address] Nov, [facility] [address] [id number] [address] [place] [address], [place] [address] Oct, [facility] [address] [id number] [address] [place] [address], [place] [address] Oct, [facility] [address] [id number] [address] [place] [address], [place] [address] Oct, [facility] [address] [id number] [address] [place] [address], [place] [address] Oct, [facility] [address] [id number] [address] [place] [address], [place] [address] Oct, [facility] [address] [id number] [address] [place] [address], [place] [address] Oct, [facility] [address] [id number] [address] [place] [address] Sep, [facility] [address] [id number] [address] [place] [address], [place] [address] Sep, [facility] [address] [id number] [address] [place] [address], [place] [address] Sep, [facility] [address] [id number] [address] [place] [address], [place] [address] Sep, [facility] [address] [id number] [address] [place] [address], [place] [address] Aug, [facility] [address] [id number] [address] [place] [address], [place] [address] Aug, [facility] [address] [id number] [address] [place] [address], [place] [address] Aug, [facility] [address] [id number] [address] [place] [address], [place] [address] 17 Jul, 2013 [facility] [address] [id number] [address] [place] [address], [place] [address] 14 Jul, 2013 [facility] [address] [id number] [address] [place] [address], [place] [address] Jul, [facility] [address] [id number] [address] [place] [address], [place] [address] Jun, [facility] [address] [id number] [address] [place] [address], [place] [address] Jun, [facility] [address] [id number] [address] [place] [address], [place] [address] Jun, [facility] [address] [id number] [address] [place] [address], [place] [address] Apr, [facility] [address] [id number] [address] [place] [address], [place] [address] Apr, [facility] [address] [id number] [address] [place] [address], [place] [address] March, [facility] [address] [id number] [address] [place] [address], [place] [address] March, [facility] [address] [id number] [address] [place] [address], [place] [address] March, [facility] [address] [id number] [address] [place] [address], [place] [address] March, [facility] [address] [id number] [address] [place] [address], [place] [address] Feb, [facility] [address] [id number] [address] [place] [address], [place] [address] Jan, [facility] [address] [id number] [address] [place] [address], [place] [address] 13 Dec, 2012 [facility] [address] [id number] [address] [place] [address], [place] [address] 08 Dec, 2012 [facility] [address] [id number] [address] [place] [address], [place] [address] 07 Dec, 2012 [facility] [address] [id number] [address] [place] [address], [place] [address] Nov, [facility] [address] [id number] [address] [place] [address], [place] [address] Oct, [facility] [address] [id number] [address] [place] [address], [place] [address] Oct, [facility] [address] [id number] [address] [place] [address], [place] [address] Sep, [facility] [address] [id number] [address] [place] [address], [place] [address] Sep, [facility] [address] [id number] [address] [place] [address], [place] [address] Sep, [facility] [address] [id number] [address] [place] [address], [place] [address] Sep, [facility] [address] [id number] [address] [place] [address] Sep, [facility] [address] [id number] [address] [place] [address], [place] [address] Sep, [facility] [address] [id number] [address] [place] [address], [place] [address] Sep, [facility] [address] [id number] [address] [place] [address], [place] [address] 16 Aug, 2012 [facility] [address] [id number] [address] [place] [address] 16 Aug, 2012 [facility] [address] [id number] [address] [place] [address], [place] [address] 10 Aug, 2012 [facility] [address] [id number] [address] [place] [address], [place] [address] 10 Aug, 2012 [facility] [address] [id number] [address] [place] [address], [place] [address] 08 Aug, 2012 [facility] [address] [id number] [address] [place] [address], [place] [address] 08 Aug, 2012 [facility] [address] [id number] [address] [place] [address], [place] [address] Aug, [facility] [address] [id number] [address] [place] [address], [place] [address] Aug, [facility] [address] [id number] [address] [place] [address], [place] [address] Jul, [facility] [address] [id number] [address] [place] [address], [place] [address] Jul, [facility] [address] [id number] [address] [place] [address], [place] [address] Jun, [facility] [address] [id number] [address] [place] [address], [place] [address] May, [facility] [address] [id number] [address] [place] [address], [place] [address] Apr, [facility] [address] [id number] [address] [place] [address], [place] [address] Apr, [facility] [address] [id number] [address] [place] [address], [place] [address] Apr, [facility] [address] [id number] [address] [place] [address], [place] [address] March, [facility] [address] [id number] [address] [place] [address], [place] [address] March, [facility] [address] [id number] [address] [place] [address], [place] [address] March, [facility] [address] [id number] [address] [place] [address], [place] [address] March, [facility] [address] [id number] [address] [place] [address], [place] [address] March, [facility] [address] [id number] [address] [place] [address], [place] [address] March, [facility] [address] [id number] [address] [place] [address], [place] [address] March, [facility] [address] [id number] [address] [place] [address], [place] [address] Jan, [facility] [address] [id number] [address] [place] [address], [place] [address] Jan, [facility] [address] [id number] [address] [place] [address], [place] [address] Jan, [facility] [address] [id number] [address] [place] [address], [place] [address] Jan, [facility] [address] [id number] [address] [place] [address], [place] [address] Jan, [facility] [address] [id number] [address] [place] [address], [place] [address] Dec, [facility] [address] [id number] [address] [place] [address], [place] [address] Dec, [facility] [address] [id number] [address] [place] [address], [place] [address] Nov, [facility] [address] [id number] [address] [place] [address], [place] [address] Nov, [facility] [address] [id number] [address] [place] [address], [place] [address] Nov, [facility] [address] [id number] [address] [place] [address] [address] 05 Nov, 2011 [facility] [address] [id number] [address] [place] [address], [place] [address] 21 Oct, 2011 [facility] [address] [id number] [address] [place] [address], [place] [address] 06 Oct, 2011 [facility] [address] [id number] [address] [place] [address], [place] [address] 14 Sep, 2011 [facility] [address] [id number] [address] [place] [address], [place] [address] 10 Sep, 2011 [facility] [address] [id number] [address] [place] [address], [place] [address] 10 Sep, 2011 [facility] [address] [id number] [address] [place] [address], [place] [address] 11 May, 2011 [facility] [address] [id number] [address] [place] [address], [place] [address] 20 Nov, 2010 [facility] [address] [id number] [address] [place] [address], [place] [address] 29 Oct, 2010 [facility] [address] [id number] [address] [place] [address], [place] [address] 14 Oct, 2010 [facility] [address] [id number] [address] [place] [address], [place] [address] 08 Oct, 2010 [facility] [address] [id number] [address] [place] [address], [place] [address] 15 Sep, 2010 [facility] [address] [id number] [address] [place] [address], [place] [address] Sep, [facility] [address] [id number] [address] [place] [address], [place] [address] Aug, [facility] [address] [id number] [address] [place] [address], [place] [address] March, [facility] [address] [id number] [address] [place] [address], [place] [address] 17 Oct, 2009 [facility] [address] [id number] [address] [place] [address] Oct, [facility] [address] [id number] [address] [place] [address] Oct, [facility] [address] [id number] [address] [place] [address] Oct, [facility] [address] [id number] [address] [place] [address] Sep, [facility] [address] [id number] [address] [place] [address] Sep, [facility] [address] [id number] [address] [place] [address] Sep, [facility] [address] [id number] [address] [place] [address] Aug, [facility] [address] [id number] [address] [place] [address] Aug, [facility] [address] [id number] [address] [place] [address] Aug, [facility] [address] [id number] [address] [place] [address] Jan, IMMUNIZATIONS No Known Immunizations SOCIAL HISTORY Never Assessed REASON FOR VISIT Tramadol refill PLAN OF CARE VITAL SIGNS MEDICATIONS Medication Instructions Dosage Frequency Start Date End Date Duration S tatus Tramadol HCl 50 mg Orally 4 times a day TAKE ONE TABLET BY MOUTH EVERY 4 HOURS NEEDED 6h 28 days Active RESULTS No Results [...]
--- OUTSIDE RECORDS SUMMARY | 2020-06-13 16:39 | XMS REPORT ---
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 Name Role Phone GIBBS CHLOE Unavailable PROBLEMS Type Condition ICD9-CM Code PBZ11-TC Code Onset Dates Condition S tatus SNOMED Code Problem Overactive bladder N32.81 Active 2 19821879 Problem Gastroesophageal reflux disease without esophagitis K21.9 Active 186355305 Problem Mixed hyperlipidemia E78.2 Active 865649006 Problem Type 2 diabetes mellitus without complications E11 .9 Active 920112559 Problem detention current use of insulin Z79.4 Active 981978134 Problem Irritable bowel syndrome with diarrhea K58.0 Active 043639722 Problem Functional diarrhea K59.1 Active 76065566 Problem Diabetes mellitus E11.9 Active 73 466682 Problem Gastroesophageal reflux disease with esophagitis K 21.0 Active 932815517 Problem Chronic pain G89.29 Active 9721498 1 Problem Insomnia G47.00 Active 808940502 Problem HTN (hypertension) I10 Active 3 3430012 Problem Neuropathy G62.9 Active 611212342 Problem Depression F32.9 Active 04010419 Problem Hypothyroid E03.9 Active 13431878 Problem GERD (gastroesophageal reflux disease) K21.9 Active 131623890 ALLERGIES No Information SOCIAL HISTORY Never Assessed [...]
--- OUTSIDE RECORDS SUMMARY | 2020-06-13 16:39 | XMS REPORT ---
Author Author Jah PARKER Organization [facility] Address [address] [place] [address] Care Team Providers Care Properties Supervisor Name Role Phone PARKERSHAYLEE MckeonELE Unavailable PROBLEMS Type Condition ICD9-CM Code SKG33-ZU Code Onset Dates Condition S tatus SNOMED Code Problem Gastroesophageal reflux disease with esophagitis K 21.0 Active 263478905 Problem retirement current use of insulin Z79.4 Active 554440553 Problem Irritable bowel syndrome with diarrhea K58.0 Active 789403074 Problem Diabetes mellitus E11.9 Active 73 279862 Problem Recurrent major depressive disorder, in partial remission F33.41 Active 27317588 Problem Essential (primary) hypertension I10 Active 98874320 Problem Type 2 diabetes mellitus with hyperglycemia E11.65 Active 52544799 Problem Current non-adherence to medical treatment Z91.19 Active 0825550 Problem Pulmonary emphysema, unspecified emphysema type J4 3.9 Active 78977594 Problem Neuropathy G62.9 Active 881622054 Problem Hypothyroid E03.9 Active 40200900 Problem Thrombocytosis D47.3 Active 35837 09 Problem Overactive bladder N32.81 Active 2 79237827 Problem Chronic pain G89.29 Active 2834086 1 Problem Mixed hyperlipidemia E78.2 Active [id number] ALLERGIES No Information ENCOUNTERS Encounter Location Date Diagnosis [facility] [address] [facility] [id number] [address] [place] [address] March, [facility] [address] [facility] [id number] [address] [place] [address] March, Hypothyroid E03.9 [facility] [address] [facility] [id number] [address] [place] [address] March, Diabetes mellitus E11.9 and Hypothyroid E03.9 [facility] [address] [facility] [id number] [address] [place] [address] March, Diabetes mellitus E11.9 [place] [address] [place] [id number] [address] [place] [address] March, Hypothyroid E03.9 and Elevat ed liver enzymes R74.8 [place] [address] [place] [id number] [address] [place] [address] March, Type 2 diabetes mellitus wit h hyperglycemia E11.65 ; 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 ; Pulmonary emphysema, unspecified emphysema type J43.9 ; Hypothyroid E03.9 ; Neuropathy G62.9 ; Mixed hyperlipidemia E78.2 ; Chronic pain G89.29 ; Gastroesophageal reflux disease with esophagitis K21.0 ; Irritable bowel syndrome with diarrhea K58.0 ; Overactive bladder N32.81 and Recurrent major depressive disorder, in partial remission F33.41 [place] [address] [place] [id number] [address] [place] [address] Feb, Chronic pain G89.29 [place] [address] [address] Feb, Type 2 diabetes mellitus wit h hyperglycemia E11.65 and Skin lesion of scalp L98.9 [place] [id number] [address] [place] [address] Feb, [place] [address] [place] [id number] [address] [place] [address] Jan, Type 2 diabetes mellitus wit h hyperglycemia E11.65 ; 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 ; Essential (primary) hypertension I10 ; Pulmonary emphysema, unspecified emphysema type J43.9 ; Chronic pain G89.29 ; Controlled substance agreement signed Z79.899 ; Hypothyroid E03.9 ; Neuropathy G62.9 ; Gastroesophageal reflux disease with esophagitis K21.0 ; Overactive bladder N32.81 ; Depression F32.9 and Irritable bowel syndrome with diarrhea K58.0 [place] [address] [place] [id number] [address] [place] [address] Jan, [place] [address] [place] [id number] [address] [place] [address] Jan, Controlled substance agreeme nt signed Z79.899 [place] [address] [facility] [id number] [address] [place] [address] 08 Dec, 2017 Type 2 diabetes mellitus [...] treatment Z91.19 and Overweight (BMI 25.0-29.9) E66.3 [place] [address] [place] [id number] [address] [place] [address] 02 Dec, 2017 Controlled substance agreeme nt signed Z79.899 [place] [address] [facility] [id number] [address] [place] [address] Nov, Type 2 diabetes mellitus wit h hyperglycemia E11.65 and Current non- adherence to medical treatment Z91.19 [place] [address] [place] [id number] [address] [place] [address] Nov, [place] [address] [place] [id number] [address] [place] [address] Nov, Chronic pain G89.29 [place] [address] [facility] [id number] [address] [place] [address] Nov, [place] [address] [facility] [id number] [address] [place] [address] Nov, Hypothyroid E03.9 [place] [address] [facility] [id number] [address] [place] [address] Nov, Hypothyroid E03.9 [place] [address] [facility] [id number] [address] [place] [address] Nov, Pulmonary emphysema, unspeci fied emphysema type J43.9 and Irritable bowel syndrome with diarrhea K58.0 [place] [address] [facility] [id number] [address] [place] [address] Oct, [place] [address] [facility] [id number] [address] [place] [address] Oct, [place] [address] [facility] [id number] [address] [place] [address] Oct, [place] [address] [facility] [id number] [address] [place] [address] Oct, [place] [address] [facility] [id number] [address] [place] [address] Oct, Chronic pain G89.29 [place] [address] [place] [id number] [address] [place] [address] Oct, Diabetes mellitus E11.9 ; De pression F32.9 ; Mixed hyperlipidemia E78.2 ; Hypotension, unspecified hypotension type I95.9 ; Pulmonary emphysema, unspecified emphysema type J43.9 and Weight loss, unintentional R63.4 [place] [address] [place] [id number] [address] [place] [address] Oct, Chronic pain G89.29 [place] [address] [place] [id number] [address] [place] [address] Sep, Chronic pain G89.29 [place] [address] [place] [id number] [address] [place] [address] Sep, Hypothyroid E03.9 and Diabet es mellitus E11.9 [place] [address] [facility] [id number] [address] [place] [address] Aug, Type 2 diabetes mellitus wit h hyperglycemia E11.65 ; 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 ; Essential (primary) hypertension I10 ; Hypothyroid E03.9 ; Neuropathy G62.9 ; Chronic pain G89.29 ; Mixed hy perlipidemia E78.2 and Encounter for immunization Z23 [place] [address] [facility] [id number] [address] [place] [address] Aug, Chronic pain G89.29 [facility] [address] [facility] [id number] [address] [place] [address] Aug, Overactive bladder N32.81 ; Diabetes mellitus E11.9 and Chronic pain G89.29 [facility] [address] [facility] [id number] [address] [place] [address] Jul, [facility] [address] [facility] [id number] [address] [place] [address] Jun, [facility] [address] [place] [id number] [address] [place] [address] Jun, [facility] [address] [place] [id number] [place] [address] Jun, Hypothyroid E03.9 [facility] [address] [place] [id number] [place] [address] Jun, Diabetes mellitus E11.9 ; Hy pothyroid E03.9 ; Neuropathy G62.9 ; Chronic pain G89.29 and Neck mass R22.1 [facility] [address] [place] [id number] [address] [place] [address] Apr, [facility] [address] [place] [id number] [address] [place] [address] Apr, Acute cystitis without hemat uria N30.00 [facility] [address] [facility] [id number] [address] [place] [address] March, [facility] [address] [place] [id number] [address] [place] [address] March, [facility] [address] [place] [id number] [address] [place] [address] March, Near syncope R55 [facility] [address] [place] [id number] [address] [place] [address] Feb, [facility] [address] [place] [id number] [address] [place] [address] Feb, Chronic pain G89.29 [facility] [address] [facility] [id number] [address] [place] [address] Feb, [facility] [address] [facility] [id number] [address] [place] [address] Feb, [facility] [address] [facility] [id number] [address] [place] [address] Jan, Chronic pain G89.29 [facility] [address] [facility] [id number] [address] [place] [address] Jan, [facility] [address] [address] Jan, [facility] [address] [facility] [id number] [address] [place] [address] Jan, Diabetes mellitus E11.9 ; Hy pothyroid E03.9 ; GERD (gastroesophageal reflux disease) K21.9 ; Insomnia G47.00 ; Functional diarrhea K59.1 ; Neuropathy G62.9 ; Depression F32.9 ; Chronic pain G89.29 ; Irritable bowel syndrome with diarrhea K58.0 ; Overactive bladder N32.81 ; Mixed hyperlipidemia E78.2 and Bronchitis J40 [facility] [address] [facility] [id number] [address] [place] [address] Dec, [facility] [address] [facility] [id number] [address] [place] [address] Dec, [facility] [address] [facility] [id number] [address] [place] [address] Dec, [facility] [address] [facility] [id number] [address] [place] [address] Dec, [facility] [address] [facility] [id number] [address] [place] [address] Dec, Chronic pain G89.29 [facility] [address] [facility] [id number] [address] [place] [address] Dec, [facility] [address] [place] [id number] [address] [place] [address] Dec, [facility] [address] [place] [id number] [place] [address] Dec, Type 2 diabetes mellitus wit h foot ulcer E11.621 [facility] [address] [place] [id number] [address] [place] [address] 17 Dec, 2016 Type 2 diabetes mellitus wit h foot ulcer E11.621 [facility] [address] [place] [id number] [address] [place] [address] Dec, HTN (hypertension) I10 ; Dep ression F32.9 ; Type 2 diabetes mellitus with foot ulcer E11.621 ; Functional diarrhea K59.1 ; Irritable bowel syndrome with diarrhea K58.0 ; Chronic pain G89.29 ; Insomnia G47.00 ; Overactive bladder N32.81 ; Mixed hyperlipidemia E78.2 ; Gastroesophageal reflux disease with esophagitis K21.0 and Acquired hypothyroidism E03.9 [place] [address] [address] Nov, [place] [address] [address] Oct, [place] [address] [address] Oct, [place] [address] [place] [id number] [address] [place] [address] Oct, [place] [address] [place] [id number] [address] [place] [address] Sep, Functional diarrhea K59.1 ; HTN (hypertension) I10 ; Diabetes mellitus E11.9 ; Depression F32.9 ; Overactive bladder N32.81 ; Mixed hyperlipidemia E78.2 ; Gastroesophageal reflux disease without esophagitis K21.9 ; Chronic pain G89.29 ; Insomnia G47.00 and Acquired hypothyroidism E03.9 [place] [address] [address] 04 Sep, 2016 [place] [address] [address] 11 Aug, 2016 Encounter for immunization Z 23 [place] [address] [address] 06 Aug, 2016 [place] [address] [address] 09 Jul, 2016 [place] [address] [address] Jun, Type 2 diabetes mellitus wit hout complications E11.9 ; HTN (hypertension) I10 ; Hypothyroid E03.9 ; Neuropathy G62.9 ; Depression F32.9 ; Chronic pain G89.29 ; GERD (gastroesophageal reflux disease) K21.9 ; Insomnia G47.00 ; Overactive bladder N32.81 ; Mixed hyperlipidemia E78.2 ; Diarrhea of infectious origin A09 and Environmental allergies Z91.09 [place] [address] [address] Apr, [place] [address] [address] March, Hypothyroidism, unspecified E03.9 and Mixed hyperlipidemia E78.2 [place] [address] [address] March, Diabetes mellitus E11.9 ; HT N (hypertension) I10 ; Hypothyroid E03.9 ; Depression F32.9 ; Overactive bladder N32.81 ; Other chronic pain G89.29 ; Lumbago with sciatica, unspecified side M54.40 ; Environmental allergies Z91.09 and Gastroesophageal reflux disease, esophagitis presence not specified K21.9 [place] [address] [address] March, [place] [address] [address] Jan, HTN (hypertension) I10 ; Hyp othyroid E03.9 ; Neuropathy G62.9 ; Diabetes mellitus E11.9 ; Chronic pain G89.29 ; GERD (gastroesophageal reflux disease) K21.9 ; Overactive bladder N32.81 and Depression F32.9 [facility] [address] [facility] [id number] [address] [place] [address] 12 Dec, 2015 Ear pain, left H92.02 ; HTN (hypertension) I10 ; Hypothyroid E03.9 ; Neuropathy G62.9 ; Diabetes mellitus E11.9 ; Depression F32.9 ; GERD (gastroesophageal reflux disease) K21.9 ; Insomnia G47.00 and Overactive bladder N32.81 [place] [id number] [place] [address] Nov, Overactive bladder N32.81 an d Chronic pain G89.29 [place] [address] [place] [id number] [address] [place] [address] Nov, Kidney failure N19 [place] [address] [place] [id number] [address] [place] [address] Nov, [place] [id number] [place] [address] Nov, [place] [address] [place] [id number] [address] [place] [address] Nov, Diabetes mellitus E11.9 ; De pression F32.9 ; Chronic pain G89.29 ; GERD (gastroesophageal reflux disease) K21.9 ; Insomnia G47.00 ; HTN (hypertension) I10 ; Hypothyroid E03.9 ; COPD (chronic obstructive pulmonary disease) J44.9 ; Bladder incontinence R32 and Incontinence R32 [place] [address] [place] [id number] [address] [place] [address] Sep, Type 2 diabetes mellitus wit h foot ulcer E11.621 and Chromosomal abnormality, 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 [facility] [address] [place] [id number] [address] [place] [address] Sep, [place] [address] [address] Aug, [place] [address] [address] Aug, [place] [address] [address] Aug, HTN (hypertension) I10 ; Enc ounter for immunization Z23 ; Hypothyroid E03.9 ; Neuropathy G62.9 ; Diabetes mellitus E11.9 ; Depression F32.9 ; Chronic pain G89.29 ; GERD (gastroesophageal reflux disease) K21.9 ; Insomnia G47.00 and COPD (chronic obstructive pulmonary disease) J44.[address] [address] Jun, [address] [address] Jun, [address] [address] May, Essential hypertension, ivis gn 401.1 ; Unspecified hypothyroidism 244.9 ; Insomnia, unspecified 780.52 ; Shortness of breath 786.05 ; Depression 311 ; COPD (chronic obstructive pulmonary disease) 496 ; GERD (gastroesophageal reflux disease) 530.81 and Diabetes 1.5, 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 [address] May, [address] [address] May, [place] [address] [address] May, Shortness of breath 786.05 ; Essential hypertension, benign 401.1 ; Diabetes mellitus 250.00 ; Hyperlipidemia 272.4 ; Hypothyroid 244.9 ; Insomnia 780.52 and Cough 786.[address] [address] Apr, [place] [address] [id number] [address] [place] [address] March, Shortness of breath 786.05 ; Nausea with vomiting 787.01 ; Essential hypertension, benign 401.1 ; Diabetes mellitus 250.00 ; Hyperlipidemia 272.4 and Hypothyroid 244.9 [facility] [address] [id number] [address] [place] [address] Feb, [facility] [address] [id number] [address] [place] [address] Feb, [facility] [address] [id number] [address] [place] [address] Jan, [facility] [address] [id number] [address] [place] [address] Jan, [facility] [address] [facility] [id number] [address] [place] [address] Jan, [facility] [address] [id number] [address] [place] [address] Jan, [facility] [address] [facility] [id number] [address] [place] [address] Jan, [facility] [address] [facility] [id number] [address] [place] [address] Jan, [facility] [address] [facility] [id number] [address] [place] [address] Jan, [facility] [address] [id number] [address] [place] [address] Jan, [facility] [address] [id number] [address] [place] [address] Jan, [facility] [address] [id number] [address] [place] [address] Jan, [facility] [address] [facility] [id number] [address] [place] [address] Dec, [facility] [address] [id number] [address] [place] [address] Dec, 2014 [facility] [address] [id number] [address] [place] [address], [place] [address] Dec, 2014 [facility] [address] [id number] [address] [place] [address], [place] [address] Dec, 2014 [facility] [address] [id number] [address] [place] [address], [place] [address] Dec, 2014 [facility] [address] [id number] [address] [place] [address], [place] [address] Dec, 2014 [facility] [address] [id number] [address] [place] [address], [place] [address] Dec, 2014 [facility] [address] [id number] [address] [place] [address], [place] [address] Dec, 2014 [facility] [address] [id number] [address] [place] [address], [place] [address] Dec, 2014 [facility] [address] [id number] [address] [place] [address], [place] [address] Dec, 2014 [facility] [address] [id number] [address] [place] [address], [place] [address] Oct, [facility] [address] [id number] [address] [place] [address], [place] [address] Oct, [facility] [address] [id number] [address] [place] [address], [place] [address] Oct, [facility] [address] [id number] [address] [place] [address], [place] [address] Oct, [facility] [address] [id number] [address] [place] [address], [place] [address] Oct, [facility] [address] [id number] [address] [place] [address], [place] [address] Oct, [facility] [address] [id number] [address] [place] [address], [place] [address] Oct, [facility] [address] [id number] [address] [place] [address], [place] [address] 05 Oct, 2014 [facility] [address] [id number] [address] [place] [address], [place] [address] Oct, [facility] [address] [id number] [address] [place] [address], [place] [address] Oct, [facility] [address] [id number] [address] [place] [address], [place] [address] Oct, [facility] [address] [id number] [address] [place] [address], [place] [address] Oct, [facility] [address] [id number] [address] [place] [address], [place] [address] Oct, [facility] [address] [id number] [address] [place] [address], [place] [address] Oct, [facility] [address] [id number] [address] [place] [address], [place] [address] Sep, [facility] [address] [id number] [address] [place] [address], [place] [address] Sep, [facility] [address] [id number] [address] [place] [address], [place] [address] Sep, [facility] [address] [id number] [address] [place] [address], [place] [address] Sep, [facility] [address] [id number] [address] [place] [address], [place] [address] Sep, [facility] [address] [id number] [address] [place] [address], [place] [address] Sep, [facility] [address] [id number] [address] [place] [address], [place] [address] Sep, [facility] [address] [id number] [address] [place] [address], [place] [address] Sep, [facility] [address] [id number] [address] [place] [address], [place] [address] Sep, [facility] [address] [id number] [address] [place] [address], [place] [address] Aug, [facility] [address] [id number] [address] [place] [address], [place] [address] 20 Aug, 2014 [facility] [address] [id number] [address] [place] [address], [place] [address] 17 Aug, 2014 [facility] [address] [id number] [address] [place] [address], [place] [address] 17 Aug, 2014 [facility] [address] [id number] [address] [place] [address], [place] [address] 16 Aug, 2014 [facility] [address] [id number] [address] [place] [address], [place] [address] Aug, [facility] [address] [id number] [address] [place] [address], [place] [address] Aug, [facility] [address] [id number] [address] [place] [address], [place] [address] Aug, [facility] [address] [id number] [address] [place] [address], [place] [address] Aug, [facility] [address] [id number] [address] [place] [address], [place] [address] 29 Jul, 2013 [facility] [address] [id number] [address] [place] [address], [place] [address] 29 Sep, 2013 [facility] [address] [id number] [address] [place] [address], [place] [address] 25 Jul, 2013 [facility] [address] [id number] [address] [place] [address], [place] [address] 25 Jul, 2013 [facility] [address] [id number] [address] [place] [address], [place] [address] 25 Jul, 2013 [facility] [address] [id number] [address] [place] [address], [place] [address] 25 Jul, 2013 [facility] [address] [id number] [facility] [place] [address] Jul, [facility] [address] [id number] [facility] [place] [address] Jul, [facility] [address] [id number] [facility] [place] [address] Jul, [facility] [address] [id number] [facility] [place] [address] Jul, [facility] [address] [id number] [facility] [place] [address] Jun, [facility] [address] [id number] [place] [address], [place] [address] Jun, [facility] [address] [id number] [address] [place] [address], [place] [address] Jun, [facility] [address] [id number] [address] [place] [address], [place] [address] Jun, [facility] [address] [id number] [address] [place] [address], [place] [address] Jun, [facility] [address] [id number] [address] [place] [address], [place] [address] Jun, [facility] [address] [id number] [address] [place] [address], [place] [address] Jun, [facility] [address] [id number] [address] [place] [address], [place] [address] Jun, [facility] [address] [id number] [address] [place] [address], [place] [address] Jun, [facility] [address] [id number] [address] [place] [address], [place] [address] Jun, [facility] [address] [id number] [address] [place] [address], [place] [address] Jun, [facility] [address] [id number] [address] [place] [address], [place] [address] Jun, [facility] [address] [id number] [facility] [place] [address] May, [facility] [address] [id number] [address] [place] [address], [place] [address] May, [facility] [address] [id number] [address] [place] [address], [place] [address] May, [facility] [address] [id number] [address] [place] [address], [place] [address] May, [facility] [address] [id number] [address] [place] [address], [place] [address] May, [facility] [address] [id number] [address] [place] [address], [place] [address] May, [facility] [address] [id number] [address] [place] [address], [place] [address] March, [facility] [address] [id number] [address] [place] [address], [place] [address] March, [facility] [address] [id number] [address] [place] [address], [place] [address] March, [facility] [address] [id number] [address] [place] [address], [place] [address] March, [facility] [address] [id number] [address] [place] [address], [place] [address] March, [facility] [address] [id number] [address] [place] [address], [place] [address] March, [facility] [address] [id number] [address] [place] [address], [place] [address] Feb, [facility] [address] [id number] [address] [place] [address], [place] [address] Feb, [facility] [address] [id number] [address] [place] [address], [place] [address] Feb, [facility] [address] [id number] [facility] [place] [address] Feb, [facility] [address] [id number] [address] [place] [address], [place] [address] Jan, [facility] [address] [id number] [facility] [place] [address] Jan, [facility] [address] [id number] [address] [place] [address], [place] [address] Jan, [facility] [address] [id number] [address] [place] [address], [place] [address] Jan, [facility] [address] [id number] [address] [place] [address], [place] [address] Jan, [facility] [address] [id number] [address] [place] [address], [place] [address] Jan, [facility] [address] [id number] [address] [place] [address], [place] [address] Jan, [facility] [address] [id number] [address] [place] [address], [place] [address] Jan, [facility] [address] [id number] [address] [place] [address], [place] [address] Jan, [facility] [address] [id number] [address] [place] [address], [place] [address] Jan, [facility] [address] [id number] [address] [place] [address], [place] [address] Jan, [facility] [address] [id number] [address] [place] [address], [place] [address] Jan, [facility] [address] [id number] [address] [place] [address], [place] [address] Dec, [facility] [address] [id number] [address] [place] [address], [place] [address] Dec, [facility] [address] [id number] [address] [place] [address], [place] [address] Dec, [facility] [address] [id number] [address] [place] [address], [place] [address] Dec, [facility] [address] [id number] [address] [place] [address], [place] [address] Dec, [facility] [address] [id number] [address] [place] [address], [place] [address] Dec, [facility] [address] [id number] [address] [place] [address], [place] [address] Nov, [facility] [address] [id number] [address] [place] [address], [place] [address] Nov, [facility] [address] [id number] [address] [place] [address], [place] [address] Oct, [facility] [address] [id number] [address] [place] [address], [place] [address] Oct, [facility] [address] [id number] [address] [place] [address], [place] [address] Oct, [facility] [address] [id number] [address] [place] [address], [place] [address] Oct, [facility] [address] [id number] [address] [place] [address], [place] [address] Oct, [facility] [address] [id number] [address] [place] [address], [place] [address] Oct, [facility] [address] [id number] [address] [place] [address] Sep, [facility] [address] [id number] [address] [place] [address], [place] [address] Sep, [facility] [address] [id number] [address] [place] [address], [place] [address] Sep, [facility] [address] [id number] [address] [place] [address], [place] [address] Sep, [facility] [address] [id number] [address] [place] [address], [place] [address] Aug, [facility] [address] [id number] [address] [place] [address], [place] [address] Aug, [facility] [address] [id number] [address] [place] [address], [place] [address] Aug, [facility] [address] [id number] [address] [place] [address], [place] [address] 17 Jul, 2013 [facility] [address] [id number] [address] [place] [address], [place] [address] 14 Jul, 2013 [facility] [address] [id number] [address] [place] [address], [place] [address] Jul, [facility] [address] [id number] [address] [place] [address], [place] [address] Jun, [facility] [address] [id number] [address] [place] [address], [place] [address] Jun, [facility] [address] [id number] [address] [place] [address], [place] [address] Jun, [facility] [address] [id number] [address] [place] [address], [place] [address] Apr, [facility] [address] [id number] [address] [place] [address], [place] [address] Apr, [facility] [address] [id number] [address] [place] [address], [place] [address] March, [facility] [address] [id number] [address] [place] [address], [place] [address] March, [facility] [address] [id number] [address] [place] [address], [place] [address] March, [facility] [address] [id number] [address] [place] [address], [place] [address] March, [facility] [address] [id number] [address] [place] [address], [place] [address] Feb, [facility] [address] [id number] [address] [place] [address], [place] [address] Jan, [facility] [address] [id number] [address] [place] [address], [place] [address] 13 Dec, 2012 [facility] [address] [id number] [address] [place] [address], [place] [address] 08 Dec, 2012 [facility] [address] [id number] [address] [place] [address], [place] [address] 07 Dec, 2012 [facility] [address] [id number] [address] [place] [address], [place] [address] Nov, [facility] [address] [id number] [address] [place] [address], [place] [address] Oct, [facility] [address] [id number] [address] [place] [address], [place] [address] Oct, [facility] [address] [id number] [address] [place] [address], [place] [address] Sep, [facility] [address] [id number] [address] [place] [address], [place] [address] Sep, [facility] [address] [id number] [address] [place] [address], [place] [address] Sep, [facility] [address] [id number] [address] [place] [address], [place] [address] Sep, [facility] [address] [id number] [address] [place] [address] Sep, [facility] [address] [id number] [address] [place] [address], [place] [address] Sep, [facility] [address] [id number] [address] [place] [address], [place] [address] Sep, [facility] [address] [id number] [address] [place] [address], [place] [address] 16 Aug, 2012 [facility] [address] [id number] [address] [place] [address] 16 Aug, 2012 [facility] [address] [id number] [address] [place] [address], [place] [address] 10 Aug, 2012 [facility] [address] [id number] [address] [place] [address], [place] [address] 10 Aug, 2012 [facility] [address] [id number] [address] [place] [address], [place] [address] 08 Aug, 2012 [facility] [address] [id number] [address] [place] [address], [place] [address] 08 Aug, 2012 [facility] [address] [id number] [address] [place] [address], [place] [address] Aug, [facility] [address] [id number] [address] [place] [address], [place] [address] Aug, [facility] [address] [id number] [address] [place] [address], [place] [address] Jul, [facility] [address] [id number] [address] [place] [address], [place] [address] Jul, [facility] [address] [id number] [address] [place] [address], [place] [address] Jun, [facility] [address] [id number] [address] [place] [address], [place] [address] May, [facility] [address] [id number] [address] [place] [address], [place] [address] Apr, [facility] [address] [id number] [address] [place] [address], [place] [address] Apr, [facility] [address] [id number] [address] [place] [address], [place] [address] Apr, [facility] [address] [id number] [address] [place] [address], [place] [address] March, [facility] [address] [id number] [address] [place] [address], [place] [address] March, [facility] [address] [id number] [address] [place] [address], [place] [address] March, [facility] [address] [id number] [address] [place] [address], [place] [address] March, [facility] [address] [id number] [address] [place] [address], [place] [address] March, [facility] [address] [id number] [address] [place] [address], [place] [address] March, [facility] [address] [id number] [address] [place] [address], [place] [address] March, [facility] [address] [id number] [address] [place] [address], [place] [address] Jan, [facility] [address] [id number] [address] [place] [address], [place] [address] Jan, [facility] [address] [id number] [address] [place] [address], [place] [address] Jan, [facility] [address] [id number] [address] [place] [address], [place] [address] Jan, [facility] [address] [id number] [address] [place] [address], [place] [address] Jan, [facility] [address] [id number] [address] [place] [address], [place] [address] Dec, [facility] [address] [id number] [address] [place] [address], [place] [address] Dec, [facility] [address] [id number] [address] [place] [address], [place] [address] Nov, [facility] [address] [id number] [address] [place] [address], [place] [address] Nov, [facility] [address] [id number] [address] [place] [address], [place] [address] Nov, [facility] [address] [id number] [address] [place] [address] [address] 05 Nov, 2011 [facility] [address] [id number] [address] [place] [address], [place] [address] 21 Oct, 2011 [facility] [address] [id number] [address] [place] [address], [place] [address] 06 Oct, 2011 [facility] [address] [id number] [address] [place] [address], [place] [address] 14 Sep, 2011 [facility] [address] [id number] [address] [place] [address], [place] [address] 10 Sep, 2011 [facility] [address] [id number] [address] [place] [address], [place] [address] 10 Sep, 2011 [facility] [address] [id number] [address] [place] [address], [place] [address] 11 May, 2011 [facility] [address] [id number] [address] [place] [address], [place] [address] 20 Nov, 2010 [facility] [address] [id number] [address] [place] [address], [place] [address] 29 Oct, 2010 [facility] [address] [id number] [address] [place] [address], [place] [address] 14 Oct, 2010 [facility] [address] [id number] [address] [place] [address], [place] [address] 08 Oct, 2010 [facility] [address] [id number] [address] [place] [address], [place] [address] 15 Sep, 2010 [facility] [address] [id number] [address] [place] [address], [place] [address] Sep, [facility] [address] [id number] [address] [place] [address], [place] [address] Aug, [facility] [address] [id number] [address] [place] [address], [place] [address] March, [facility] [address] [id number] [address] [place] [address], [place] [address] 17 Oct, 2009 [facility] [address] [id number] [address] [place] [address] Oct, [facility] [address] [id number] [address] [place] [address] Oct, [facility] [address] [id number] [address] [place] [address] Oct, [facility] [address] [id number] [address] [place] [address] Sep, [facility] [address] [id number] [address] [place] [address] Sep, [facility] [address] [id number] [address] [place] [address] Sep, [facility] [address] [id number] [address] [place] [address] Aug, [facility] [address] [facility] [id number] [address] [place] [address] Aug, [facility] [address] [id number] [address] [place] [address] Aug, [facility] [address] [facility] [id number] [address] [place] [address] Jan, IMMUNIZATIONS No Known Immunizations SOCIAL HISTORY Never Assessed REASON FOR VISIT Lab results PLAN OF CARE VITAL SIGNS MEDICATIONS Unknown [...]
--- OUTSIDE RECORDS SUMMARY | 2020-06-13 16:40 | XMS REPORT ---
Author Author Jah Durant Doctor Organization [facility] Address Unknown Phone Unavailable Care Team Providers Care Library Serials Assistant Name Role Phone Migration, Doctor Unavailable Unavailable PROBLEMS Type Condition ICD9-CM Code [id number] Code Onset Dates Condition S tatus SNOMED Code Problem Neuropathy G62.9 Active 508489213 Problem Chronic pain G89.29 Active 9613898 1 Problem Overactive bladder N32.81 Active 2 52313071 Problem Hypothyroid E03.9 Active 28442116 Problem Irritable bowel syndrome with diarrhea K58.0 Active 043941052 Problem MCC current use of insulin Z79.4 Active 537369961 Problem Type 2 diabetes mellitus with hyperglycemia E11.65 Active 04392955 Problem Chronic obstructive pulmonary disease, unspecified COPD ty pe J44.9 Active 37061873 Problem Gastroesophageal reflux disease with esophagitis K 21.0 Active 068157372 Problem Major depressive disorder, recurrent, in full remission F33.42 Active 13364638 Problem Mixed hyperlipidemia E78.2 Active 685823279 Problem Essential (primary) hypertension I10 Active 96367616 Problem Anxiety disorder, unspecified type F41.9 Active 409244375 Problem Gastroparesis K31.84 Active 597811 006 Problem 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 Active [id number] ALLERGIES No Information ENCOUNTERS Encounter Location Date Diagnosis [facility] [address] [facility] [id number] [address] [place] [address] Jul, Chronic pain G89.29 [facility] [address] [facility] [id number] [address] [place] [address] Jun, Other chronic pain G89.29 [facility] [address] [facility] [id number] [address] [place] [address] Jun, [facility] [address] [facility] [id number] [address] [place] [address] Jun, Chronic pain G89.29 [facility] [address] [place] [id number] [address] [place] [address] Jun, Neuropathy G62.9 [place] [address] [place] [address] Jun, Encounter for Medicare kodi wellness exam Z00.00 ; Type 2 diabetes mellitus with hyperglycemia E11.65 ; Mixed hyperlipidemia E78.2 ; Hypothyroid E03.9 ; Gastroesophageal reflux disease with esophagitis K21.0 ; Essential (primary) hypertension I10 ; Major depressive disorder, recurrent, in full remission F33.42 ; Chronic obstructive pulmonary disease, unspecified COPD type J44.9 ; Neuropathy G62.9 and Encounter for immunization Z23 [place] [address] [address] Jun, Irritable bowel syndrome wit h diarrhea K58.0 [place] [address] [address] May, Chronic pain G89.29 [place] [address] [place] [id number] [address] [place] [address] May, Type 2 diabetes mellitus wit h hyperglycemia E11.65 and Neuropathy G62.9 [place] [address] [place] [id number] [address] [place] [address] May, Chronic pain G89.29 [place] [address] [place] [id number] [address] [place] [address] Apr, Poison maryam dermatitis L23.7 [place] [address] [place] [id number] [address] [place] [address] Apr, Chronic pain G89.29 [place] [address] [facility] [id number] [address] [place] [address] March, Type 2 diabetes mellitus wit h hyperglycemia E11.65 [place] [address] [facility] [id number] [address] [place] [address] March, Chronic pain G89.29 [place] [address] [facility] [id number] [address] [place] [address] March, [facility] [address] [place] [address] Feb, [facility] [address] [facility] [id number] [address] [place] [address] Feb, Other chronic pain G89.29 an d Chronic pain G89.29 [facility] [address] [facility] [id number] [address] [place] [address] Jan, Mixed hyperlipidemia E78.2 [facility] [address] [facility] [id number] [address] [place] [address] Jan, Chronic pain G89.29 [facility] [address] [facility] [id number] [address] [place] [address] Jan, Type 2 diabetes mellitus wit h hyperglycemia E11.65 ; Mixed hyperlipidemia E78.2 ; 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 ; Acquired hypothyroidism E03.9 and Essential (primary) hypertension I10 [facility] [address] [facility] [id number] [address] [place] [address] Dec, Chronic pain G89.29 [facility] [address] [facility] [id number] [address] [place] [address] Nov, Chronic pain G89.29 [facility] [address] [facility] [id number] [address] [place] [address] Nov, [facility] [address] [facility] [id number] [address] [place] [address] Oct, Chronic pain G89.29 [facility] [address] [facility] [id number] [address] [place] [address] Oct, [facility] [address] [facility] [id number] [address] [place] [address] Sep, [facility] [address] [facility] [id number] [address] [place] [address] Sep, Type 2 diabetes mellitus wit h hyperglycemia E11.65 [facility] [address] [place] [address] Sep, Chronic pain G89.29 [place] [address] [address] Sep, [place] [address] [place] [id number] [address] [place] [address] Sep, Type 2 diabetes mellitus wit h hyperglycemia E11.65 ; Irritable bowel syndrome with diarrhea K58.0 ; Gastroparesis K31.84 ; 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 and Dermatitis L30.9 [place] [address] [place] [address] Aug, Chronic pain G89.29 [place] [address] [address] Jul, Chronic pain G89.29 [place] [address] [address] Jun, Type 2 diabetes mellitus wit h hyperglycemia E11.65 ; Neuropathy G62.9 ; Recurrent major depressive disorder, in partial remission F33.41 ; Chronic pain G89.29 and Hypertriglyceridemia E78.1 [place] [address] [place] [id number] [address] [place] [address] Jun, Hypothyroid E03.9 [place] [address] [address] Jun, Major depressive disorder, r ecurrent episode, moderate F33.1 and Anxiety disorder, unspecified type F41.9 [place] [address] [place] [address] Jun, [place] [address] [address] Jun, Type 2 diabetes mellitus wit h hyperglycemia E11.65 ; MCC current use of insulin Z79.4 ; Recurrent major depressive disorder, in partial remission F33.41 ; Hypothyroid E03.9 ; Candidal dermatitis B37.2 and Weakness generalized R53.1 [facility] [address] [id number] [address] [place] [address] May, [facility] [address] [facility] [id number] [address] [place] [address] May, [facility] [address] [facility] [id number] [address] [place] [address] May, [facility] [address] [id number] [address] [place] [address] May, Generalized abdominal pain R 10.84 and Candidal dermatitis B37.2 [place] [address] [facility] [id number] [address] [place] [address] May, [place] [address] [facility] [id number] [address] [place] [address] May, [place] [address] [place] [id number] [place] [address] May, Nodular radiologic density R 93.8 ; Weight loss, unintentional R63.4 and Pulmonary emphysema, unspecified emphysema type J43.9 [place] [address] [place] [id number] [address] [place] [address] May, Chronic pain G89.29 [place] [address] [place] [id number] [address] [place] [address] May, Syncope and collapse R55 ; C hronic fatigue R53.[address] lung screening R91.8 [place] [address] [facility] [id number] [address] [place] [address] May, [place] [address] [facility] [id number] [address] [place] [address] Apr, Chronic fatigue R53.82 ; Abn ormal chest CT R93.8 ; Elevated erythrocyte sedimentation rate R70.0 ; Hypothyroid E03.9 and Recurrent major depressive disorder, in partial remission F33.41 [place] [address] [place] [id number] [address] [place] [address] Apr, Hypothyroid E03.9 [facility] [address] [facility] [id number] [address] [place] [address] Apr, Depression F32.9 [facility] [address] [facility] [id number] [address] [place] [address] Apr, [place] [address] [facility] [id number] [address] [place] [address] March, [place] [address] [facility] [id number] [address] [place] [address] March, Hypothyroid E03.9 [place] [address] [facility] [id number] [address] [place] [address] March, Diabetes mellitus E11.9 and Hypothyroid E03.9 [place] [address] [facility] [id number] [address] [place] [address] March, Diabetes mellitus E11.9 [place] [address] [facility] [id number] [address] [place] [address] March, Hypothyroid E03.9 and Elevat ed liver enzymes R74.8 [place] [address] [facility] [id number] [address] [place] [address] March, Type 2 diabetes mellitus wit h [...] major depressive disorder, in partial remission F33.41 [place] [address] [facility] [id number] [address] [place] [address] Feb, Chronic pain G89.29 [place] [address] [facility] [id number] [address] [place] [address] Feb, Type 2 diabetes mellitus wit h hyperglycemia E11.65 and Skin lesion of scalp L98.9 [place] [address] [place] [id number] [address] [place] [address] Feb, [place] [address] [place] [id number] [address] [place] [address] Jan, Type 2 diabetes mellitus wit h hyperglycemia E11.65 ; 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 ; Essential (primary) hypertension I10 ; Pulmonary emphysema, unspecified emphysema type J43.9 ; Chronic pain G89.29 ; Controlled substance agreement signed Z79.899 ; Hypothyroid E03.9 ; Neuropathy G62.9 ; Gastroesophageal reflux disease with esophagitis K21.0 ; Overactive bladder N32.81 ; Depression F32.9 and Irritable bowel syndrome with diarrhea K58.0 [place] [address] [place] [id number] [address] [place] [address] Jan, [place] [address] [address] Jan, Controlled substance agreeme nt signed Z79.899 [place] [address] [place] [id number] [address] [place] [address] Dec, Type 2 diabetes mellitus wit h [...] treatment Z91.19 and Overweight (BMI 25.0-29.9) E66.3 [place] [address] [place] [id number] [address] [place] [address] Dec, Controlled substance agreeme nt signed Z79.899 [place] [address] [place] [address] Nov, Type 2 diabetes mellitus wit h hyperglycemia E11.65 and Current non- adherence to medical treatment Z91.19 [facility] [address] [facility] [id number] [address] [place] [address] Nov, [facility] [address] [facility] [id number] [address] [place] [address] Nov, Chronic pain G89.29 [facility] [address] [facility] [id number] [address] [place] [address] Nov, [facility] [address] [facility] [id number] [address] [place] [address] Nov, Hypothyroid E03.9 [place] [address] [facility] [id number] [address] [place] [address] Nov, Hypothyroid E03.9 [place] [address] [facility] [id number] [address] [place] [address] Nov, Pulmonary emphysema, unspeci fied emphysema type J43.9 and Irritable bowel syndrome with diarrhea K58.0 [place] [address] [facility] [id number] [address] [place] [address] Oct, [place] [address] [place] [id number] [address] [place] [address] Oct, [place] [address] [place] [id number] [address] [place] [address] Oct, [place] [address] [place] [id number] [address] [place] [address] Oct, [place] [address] [facility] [id number] [address] [place] [address] Oct, Chronic pain G89.29 [place] [address] [facility] [id number] [address] [place] [address] Oct, Diabetes mellitus E11.9 ; De pression F32.9 ; Mixed hyperlipidemia E78.2 ; Hypotension, unspecified hypotension type I95.9 ; Pulmonary emphysema, unspecified emphysema type J43.9 and Weight loss, unintentional R63.4 [place] [address] [place] [id number] [address] [place] [address] Oct, Chronic pain G89.29 [facility] [address] [address] Sep, Chronic pain G89.29 [place] [address] [place] [id number] [place] [address] Sep, Hypothyroid E03.9 and Diabet es mellitus E11.9 [place] [address] [place] [id number] [address] [place] [address] Aug, Type 2 diabetes mellitus wit h hyperglycemia E11.65 ; 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 ; Essential (primary) hypertension I10 ; Hypothyroid E03.9 ; Neuropathy G62.9 ; Chronic pain G89.29 ; Mixed hy perlipidemia E78.2 and Encounter for immunization Z23 [place] [address] [address] Aug, Chronic pain G89.29 [place] [address] [address] Aug, Overactive bladder N32.81 ; Diabetes mellitus E11.9 and Chronic pain G89.29 [place] [address] [place] [id number] [address] [place] [address] Jul, [place] [address] [place] [id number] [address] [place] [address] Jun, [place] [address] [place] [id number] [address] [place] [address] Jun, [place] [address] [place] [id number] [address] [place] [address] Jun, Hypothyroid E03.9 [facility] [address] [place] [id number] [address] [place] [address] Jun, Diabetes mellitus E11.9 ; Hy pothyroid E03.9 ; Neuropathy G62.9 ; Chronic pain G89.29 and Neck mass R22.1 [facility] [address] [facility] [id number] [address] [place] [address] Apr, [facility] [address] [facility] [id number] [address] [place] [address] Apr, Acute cystitis without hemat uria N30.00 [facility] [address] [facility] [id number] [address] [place] [address] March, [facility] [address] [facility] [id number] [address] [place] [address] March, [facility] [address] [facility] [id number] [address] [place] [address] March, Near syncope R55 [facility] [address] [facility] [id number] [address] [place] [address] Feb, [facility] [address] [facility] [id number] [address] [place] [address] Feb, Chronic pain G89.29 [facility] [address] [facility] [id number] [address] [place] [address] Feb, [facility] [address] [facility] [id number] [address] [place] [address] Feb, [facility] [address] [facility] [id number] [address] [place] [address] Jan, Chronic pain G89.29 [facility] [address] [facility] [id number] [address] [place] [address] Jan, [facility] [address] [facility] [id number] [address] [place] [address] Jan, [facility] [address] [facility] [id number] [address] [place] [address] 14 Jan, 2017 Diabetes mellitus E11.9 ; Hy pothyroid E03.9 ; GERD (gastroesophageal reflux disease) K21.9 ; Insomnia G47.00 ; Functional diarrhea 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 ; Neuropathy G62.9 ; Depression F32.9 ; Chronic pain G89.29 ; Irritable bowel syndrome with diarrhea K58.0 ; Overactive bladder N32.81 ; Mixed hyperlipidemia E78.2 and Bronchitis J40 [facility] [address] [facility] [id number] [address] [place] [address] Dec, [facility] [address] [facility] [id number] [address] [place] [address] Dec, [facility] [address] [facility] [id number] [address] [place] [address] Dec, [facility] [address] [facility] [id number] [address] [place] [address] Dec, [facility] [address] [facility] [id number] [address] [place] [address] Dec, Chronic pain G89.29 [facility] [address] [place] [address] Dec, [facility] [address] [place] [id number] [address] [place] [address] Dec, [facility] [address] [place] [id number] [address] [place] [address] Dec, Type 2 diabetes mellitus wit h foot ulcer E11.621 [facility] [address] [address] 17 Dec, 2016 Type 2 diabetes mellitus wit h foot ulcer E11.621 [place] [address] [place] [address] 14 Dec, 2016 HTN (hypertension) I10 ; Dep ression F32.9 ; Type 2 diabetes mellitus with foot ulcer E11.621 ; Functional diarrhea K59.1 ; Irritable bowel syndrome with diarrhea K58.0 ; Chronic pain G89.29 ; Insomnia G47.00 ; Overactive bladder N32.81 ; Mixed hyperlipidemia E78.2 ; Gastroesophageal reflux disease with esophagitis K21.0 and Acquired hypothyroidism E03.9 [facility] [id number] [place] [address] Nov, [place] [address] [address] Oct, [place] [address] [address] Oct, [place] [address] [address] Oct, [place] [address] [address] Sep, Functional diarrhea K59.1 ; HTN (hypertension) I10 ; Diabetes mellitus E11.9 ; Depression F32.9 ; Overactive bladder N32.81 ; Mixed hyperlipidemia E78.2 ; Gastroesophageal reflux disease without esophagitis K21.9 ; Chronic pain G89.29 ; Insomnia G47.00 and Acquired hypothyroidism E03.9 [place] [address] [address] Sep, [place] [address] [address] Aug, Encounter for immunization Z [address] [address] Aug, [place] [address] [address] Jul, [place] [address] [address] Jun, Type 2 diabetes mellitus wit hout complications E11.9 ; HTN (hypertension) I10 ; Hypothyroid E03.9 ; Neuropathy G62.9 ; Depression F32.9 ; Chronic pain G89.29 ; GERD (gastroesophageal reflux disease) K21.9 ; Insomnia G47.00 ; Overactive bladder N32.81 ; Mixed hyperlipidemia E78.2 ; Diarrhea of infectious origin A09 and Environmental allergies Z91.[address] [address] Apr, [place] [address] [place] [id number] [address] [place] [address] March, Hypothyroidism, unspecified E03.9 and Mixed hyperlipidemia E78.2 [place] [address] [address] March, Diabetes mellitus E11.9 ; HT N (hypertension) I10 ; Hypothyroid E03.9 ; Depression F32.9 ; Overactive bladder N32.81 ; Other chronic pain G89.29 ; Lumbago with sciatica, unspecified side M54.40 ; Environmental allergies Z91.09 and Gastroesophageal reflux disease, esophagitis presence not specified K21.9 [place] [address] [address] March, [place] [address] [address] Jan, HTN (hypertension) I10 ; Hyp othyroid E03.9 ; Neuropathy G62.9 ; Diabetes mellitus E11.9 ; Chronic pain G89.29 ; GERD (gastroesophageal reflux disease) K21.9 ; Overactive bladder N32.81 and Depression F32.9 [place] [address] [address] Dec, Ear pain, left H92.02 ; HTN (hypertension) I10 ; Hypothyroid E03.9 ; Neuropathy G62.9 ; Diabetes mellitus E11.9 ; Depression F32.9 ; GERD (gastroesophageal reflux disease) K21.9 ; Insomnia G47.00 and Overactive bladder N32.81 [place] [address] [place] [id number] [address] [place] [address] Nov, Overactive bladder N32.81 an d Chronic pain G89.29 [place] [address] [place] [id number] [address] [place] [address] Nov, Kidney failure N19 [place] [address] [place] [id number] [place] [address] Nov, [place] [address] [address] Nov, [address] [address] Nov, Diabetes mellitus E11.9 ; De pression F32.9 ; Chronic pain G89.29 ; GERD (gastroesophageal reflux disease) K21.9 ; Insomnia G47.00 ; HTN (hypertension) I10 ; Hypothyroid E03.9 ; COPD (chronic obstructive pulmonary disease) J44.9 ; Bladder incontinence R32 and Incontinence R32 [address] [address] Sep, Type 2 diabetes mellitus wit h foot ulcer E11.621 and Chromosomal abnormality, 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 [address] Sep, [address] [address] Aug, [place] [address] [address] Aug, [address] [address] Aug, HTN (hypertension) I10 ; Enc ounter for immunization Z23 ; Hypothyroid E03.9 ; Neuropathy G62.9 ; Diabetes mellitus E11.9 ; Depression F32.9 ; Chronic pain G89.29 ; GERD (gastroesophageal reflux disease) K21.9 ; Insomnia G47.00 and COPD (chronic obstructive pulmonary disease) J44.9 [place] [address] [address] Jun, [address] [address] Jun, [place] [address] [address] May, Essential hypertension, ivis gn 401.1 ; Unspecified hypothyroidism 244.9 ; Insomnia, unspecified 780.52 ; Shortness of breath 786.05 ; Depression 311 ; COPD (chronic obstructive pulmonary disease) 496 ; GERD (gastroesophageal reflux disease) 530.81 and Diabetes 1.5, 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 [facility] [address] [address] May, [facility] [address] [address] May, [facility] [facility] [address] [address] May, Shortness of breath 786.05 ; Essential hypertension, benign 401.1 ; Diabetes mellitus 250.00 ; Hyperlipidemia 272.4 ; Hypothyroid 244.9 ; Insomnia 780.52 and Cough 786.2 [facility] [address] [address] Apr, [facility] [address] [address] March, Shortness of breath 786.05 ; Nausea with vomiting 787.01 ; Essential hypertension, benign 401.1 ; Diabetes mellitus 250.00 ; Hyperlipidemia 272.4 and Hypothyroid 244.9 [facility] [address] [id number] [address] [place] [address] Feb, [facility] [address] [id number] [address] [place] [address] Feb, [facility] [address] [id number] [address] [place] [address] Jan, [facility] [address] [id number] [address] [place] [address] Jan, [facility] [address] [address] Jan, [facility] [address] [id number] [address] [place] [address] Jan, [facility] [address] [place] [address] 05 Jan, 2014 [facility] [address] [id number] [address] [place] [address], [place] [address] Jan, 2014 [facility] [address] [id number] [address] [place] [address], [place] [address] Jan, 2014 [facility] [address] [id number] [address] [place] [address], [place] [address] Jan, 2014 [facility] [address] [id number] [address] [place] [address], [place] [address] Jan, 2014 [facility] [address] [id number] [address] [place] [address], [place] [address] Jan, 2014 [facility] [address] [id number] [address] [place] [address], [place] [address] Dec, 2014 [facility] [address] [id number] [address] [place] [address], [place] [address] Dec, 2014 [facility] [address] [id number] [address] [place] [address], [place] [address] Dec, 2014 [facility] [address] [id number] [address] [place] [address], [place] [address] Dec, 2014 [facility] [address] [id number] [address] [place] [address], [place] [address] Dec, 2014 [facility] [address] [id number] [address] [place] [address], [place] [address] Dec, 2014 [facility] [address] [id number] [address] [place] [address], [place] [address] Dec, 2014 [facility] [address] [id number] [address] [place] [address], [place] [address] Dec, 2014 [facility] [address] [id number] [address] [place] [address], [place] [address] Dec, 2014 [facility] [address] [id number] [address] [place] [address], [place] [address] Dec, [facility] [address] [id number] [facility] [place] [address] Oct, [facility] [address] [id number] [address] [place] [address], [place] [address] Oct, [facility] [address] [id number] [address] [place] [address], [place] [address] Oct, [facility] [address] [id number] [address] [place] [address], [place] [address] Oct, [facility] [address] [id number] [address] [place] [address], [place] [address] Oct, [facility] [address] [id number] [address] [place] [address], [place] [address] Oct, [facility] [address] [id number] [address] [place] [address], [place] [address] Oct, [facility] [address] [id number] [address] [place] [address], [place] [address] Oct, [facility] [address] [id number] [address] [place] [address], [place] [address] Oct, [facility] [address] [id number] [address] [place] [address], [place] [address] Oct, [facility] [address] [id number] [address] [place] [address], [place] [address] Oct, [facility] [address] [id number] [address] [place] [address], [place] [address] Oct, [facility] [address] [id number] [address] [place] [address], [place] [address] Oct, [facility] [address] [id number] [address] [place] [address], [place] [address] Oct, [facility] [address] [id number] [address] [place] [address], [place] [address] Sep, [facility] [address] [id number] [address] [place] [address], [place] [address] Sep, [facility] [address] [id number] [address] [place] [address], [place] [address] Sep, [facility] [address] [id number] [address] [place] [address], [place] [address] Sep, [facility] [address] [id number] [address] [place] [address], [place] [address] Sep, [facility] [address] [id number] [address] [place] [address], [place] [address] Sep, [facility] [address] [id number] [address] [place] [address], [place] [address] Sep, [facility] [address] [id number] [address] [place] [address], [place] [address] Sep, [facility] [address] [id number] [address] [place] [address], [place] [address] Sep, [facility] [address] [id number] [address] [place] [address], [place] [address] Aug, [facility] [address] [id number] [address] [place] [address], [place] [address] Aug, [facility] [address] [id number] [address] [place] [address], [place] [address] Aug, [facility] [address] [id number] [address] [place] [address], [place] [address] Aug, [facility] [address] [id number] [address] [place] [address], [place] [address] 16 Aug, 2014 [facility] [address] [id number] [address] [place] [address], [place] [address] Aug, [facility] [address] [id number] [address] [place] [address], [place] [address] Aug, [facility] [address] [id number] [address] [place] [address], [place] [address] Aug, [facility] [address] [id number] [facility] [place] [address] Aug, [facility] [address] [id number] [address] [place] [address], [place] [address] Jul, [facility] [address] [id number] [address] [place] [address], [place] [address] Jul, [facility] [address] [id number] [address] [place] [address], [place] [address] Jul, [facility] [address] [id number] [address] [place] [address], [place] [address] Jul, [facility] [address] [id number] [address] [place] [address], [place] [address] Jul, [facility] [address] [id number] [address] [place] [address], [place] [address] Jul, [facility] [address] [id number] [address] [place] [address], [place] [address] Jul, [facility] [address] [id number] [address] [place] [address], [place] [address] Jul, [facility] [address] [id number] [address] [place] [address], [place] [address] Jul, [facility] [address] [id number] [address] [place] [address], [place] [address] Jul, [facility] [address] [id number] [address] [place] [address], [place] [address] Jun, [facility] [address] [id number] [address] [place] [address], [place] [address] Jun, [facility] [address] [id number] [address] [place] [address], [place] [address] Jun, [facility] [address] [id number] [address] [place] [address], [place] [address] Jun, [facility] [address] [id number] [address] [place] [address], [place] [address] Jun, [facility] [address] [id number] [facility] [place] [address] Jun, [facility] [address] [id number] [address] [place] [address], [place] [address] Jun, [facility] [address] [id number] [address] [place] [address], [place] [address] Jun, [facility] [address] [id number] [address] [place] [address], [place] [address] Jun, [facility] [address] [id number] [address] [place] [address], [place] [address] Jun, [facility] [address] [id number] [address] [place] [address], [place] [address] Jun, [facility] [address] [id number] [address] [place] [address], [place] [address] Jun, [facility] [address] [id number] [address] [place] [address], [place] [address] May, [facility] [address] [id number] [address] [place] [address], [place] [address] May, [facility] [address] [id number] [address] [place] [address], [place] [address] May, [facility] [address] [id number] [address] [place] [address], [place] [address] May, [facility] [address] [id number] [address] [place] [address], [place] [address] May, [facility] [address] [id number] [address] [place] [address], [place] [address] May, [facility] [address] [id number] [address] [place] [address], [place] [address] March, [facility] [address] [id number] [address] [place] [address], [place] [address] March, [facility] [address] [id number] [facility] [place] [address] March, [facility] [address] [id number] [address] [place] [address], [place] [address] March, [facility] [address] [id number] [address] [place] [address], [place] [address] March, [facility] [address] [id number] [address] [place] [address], [place] [address] March, [facility] [address] [id number] [address] [place] [address], [place] [address] Feb, [facility] [address] [id number] [address] [place] [address], [place] [address] Feb, [facility] [address] [id number] [address] [place] [address], [place] [address] Feb, [facility] [address] [id number] [address] [place] [address], [place] [address] Feb, [facility] [address] [id number] [address] [place] [address], [place] [address] Jan, [facility] [address] [id number] [address] [place] [address], [place] [address] Jan, [facility] [address] [id number] [address] [place] [address], [place] [address] Jan, [facility] [address] [id number] [address] [place] [address], [place] [address] Jan, [facility] [address] [id number] [address] [place] [address], [place] [address] Jan, [facility] [address] [id number] [address] [place] [address], [place] [address] Jan, [facility] [address] [id number] [address] [place] [address], [place] [address] Jan, [facility] [address] [id number] [address] [place] [address], [place] [address] Jan, [facility] [address] [id number] [facility] [place] [address] Jan, [facility] [address] [id number] [address] [place] [address], [place] [address] Jan, [facility] [address] [id number] [facility] [place] [address] Jan, [facility] [address] [id number] [address] [place] [address], [place] [address] Jan, [facility] [address] [id number] [address] [place] [address], [place] [address] Dec, [facility] [address] [id number] [address] [place] [address], [place] [address] Dec, [facility] [address] [id number] [address] [place] [address], [place] [address] Dec, [facility] [address] [id number] [address] [place] [address], [place] [address] Dec, [facility] [address] [id number] [address] [place] [address], [place] [address] Dec, [facility] [address] [id number] [address] [place] [address], [place] [address] Dec, [facility] [address] [id number] [address] [place] [address], [place] [address] Nov, [facility] [address] [id number] [address] [place] [address], [place] [address] Nov, [facility] [address] [id number] [address] [place] [address], [place] [address] Oct, [facility] [address] [id number] [address] [place] [address], [place] [address] Oct, [facility] [address] [id number] [address] [place] [address], [place] [address] Oct, [facility] [address] [id number] [address] [place] [address], [place] [address] Oct, [facility] [address] [id number] [address] [place] [address], [place] [address] Oct, [facility] [address] [id number] [address] [place] [address], [place] [address] Oct, [facility] [address] [id number] [address] [place] [address], [place] [address] Sep, [facility] [address] [id number] [address] [place] [address], [place] [address] Sep, [facility] [address] [id number] [address] [place] [address], [place] [address] Sep, [facility] [address] [id number] [address] [place] [address], [place] [address] Sep, [facility] [address] [id number] [address] [place] [address], [place] [address] Aug, [facility] [address] [id number] [address] [place] [address], [place] [address] Aug, [facility] [address] [id number] [address] [place] [address], [place] [address] Aug, [facility] [address] [id number] [address] [place] [address], [place] [address] 17 Jul, 2013 [facility] [address] [id number] [address] [place] [address], [place] [address] 14 Jul, 2013 [facility] [address] [id number] [address] [place] [address], [place] [address] Jul, [facility] [address] [id number] [address] [place] [address], [place] [address] Jun, [facility] [address] [id number] [address] [place] [address], [place] [address] Jun, [facility] [address] [id number] [address] [place] [address], [place] [address] Jun, [facility] [address] [id number] [address] [place] [address], [place] [address] Apr, [facility] [address] [id number] [address] [place] [address], [place] [address] Apr, [facility] [address] [id number] [address] [place] [address], [place] [address] March, [facility] [address] [id number] [address] [place] [address], [place] [address] March, [facility] [address] [id number] [address] [place] [address], [place] [address] March, [facility] [address] [id number] [address] [place] [address], [place] [address] March, [facility] [address] [id number] [address] [place] [address], [place] [address] Feb, [facility] [address] [id number] [address] [place] [address], [place] [address] Jan, [facility] [address] [id number] [address] [place] [address], [place] [address] Dec, [facility] [address] [id number] [address] [place] [address], [place] [address] Dec, [facility] [address] [id number] [address] [place] [address], [place] [address] Dec, [facility] [address] [id number] [address] [place] [address], [place] [address] Nov, [facility] [address] [id number] [address] [place] [address], [place] [address] Oct, [facility] [address] [id number] [address] [place] [address], [place] [address] Oct, [facility] [address] [id number] [address] [place] [address], [place] [address] Sep, [facility] [address] [id number] [address] [place] [address] Sep, [facility] [address] [id number] [address] [place] [address], [place] [address] Sep, [facility] [address] [id number] [address] [place] [address] Sep, [facility] [address] [id number] [address] [place] [address], [place] [address] Sep, [facility] [address] [id number] [address] [place] [address], [place] [address] Sep, [facility] [address] [id number] [address] [place] [address], [place] [address] Sep, [facility] [address] [id number] [address] [place] [address], [place] [address] Aug, [facility] [address] [id number] [address] [place] [address] Aug, [facility] [address] [id number] [address] [place] [address] Aug, [facility] [address] [id number] [address] [place] [address], [place] [address] Aug, [facility] [address] [id number] [address] [place] [address] Aug, [facility] [address] [id number] [address] [place] [address] Aug, [facility] [address] [id number] [address] [place] [address] Aug, [facility] [address] [id number] [address] [place] [address] Aug, [facility] [address] [id number] [address] [place] [address], [place] [address] Jul, [facility] [address] [id number] [address] [place] [address] 12 Jul, 2012 [facility] [address] [id number] [facility] [place] [address] Jun, [facility] [address] [id number] [address] [place] [address], [place] [address] May, [facility] [address] [id number] [address] [place] [address], [place] [address] Apr, [facility] [address] [id number] [address] [place] [address], [place] [address] Apr, [facility] [address] [id number] [address] [place] [address], [place] [address] Apr, [facility] [address] [id number] [address] [place] [address], [place] [address] March, [facility] [address] [id number] [address] [place] [address], [place] [address] March, [facility] [address] [id number] [address] [place] [address], [place] [address] March, [facility] [address] [id number] [address] [place] [address], [place] [address] March, [facility] [address] [id number] [address] [place] [address], [place] [address] March, [facility] [address] [id number] [address] [place] [address], [place] [address] March, [facility] [address] [id number] [address] [place] [address], [place] [address] March, [facility] [address] [id number] [address] [place] [address], [place] [address] Jan, [facility] [address] [id number] [address] [place] [address], [place] [address] Jan, [facility] [address] [id number] [address] [place] [address], [place] [address] Jan, [facility] [address] [id number] [address] [place] [address], [place] [address] 13 Jan, 2012 [facility] [address] [id number] [address] [place] [address], [place] [address] Jan, [facility] [address] [id number] [address] [place] [address], [place] [address] 08 Dec, 2011 [facility] [address] [id number] [address] [place] [address], [place] [address] Dec, [facility] [address] [id number] [address] [place] [address], [place] [address] Nov, [facility] [address] [id number] [address] [place] [address], [place] [address] Nov, [facility] [address] [id number] [address] [place] [address], [place] [address] Nov, [facility] [address] [id number] [address] [place] [address], [place] [address] Nov, [facility] [address] [id number] [address] [place] [address], [place] [address] Oct, [facility] [address] [id number] [address] [place] [address], [place] [address] Oct, [facility] [address] [id number] [address] [place] [address], [place] [address] Sep, [facility] [address] [id number] [address] [place] [address], [place] [address] Sep, [facility] [address] [id number] [address] [place] [address], [place] [address] Sep, [facility] [address] [id number] [address] [place] [address], [place] [address] May, [facility] [address] [id number] [address] [place] [address], [place] [address] Nov, [facility] [address] [id number] [address] [place] [address], [place] [address] Oct, [facility] [address] [id number] [address] [place] [address], [place] [address] 14 Oct, 2010 [facility] [address] [id number] [address] [place] [address], [place] [address] 08 Oct, 2010 [facility] [address] [id number] [address] [place] [address], [place] [address] 15 Sep, 2010 [facility] [address] [id number] [address] [place] [address], [place] [address] 02 Sep, 2010 [facility] [address] [id number] [address] [place] [address], [place] [address] 20 Aug, 2010 [facility] [address] [id number] [address] [place] [address], [place] [address] March, [facility] [address] [id number] [address] [place] [address], [place] [address] 17 Oct, 2009 [facility] [address] [id number] [address] [place] [address], [place] [address] 17 Oct, 2009 [facility] [address] [id number] [address] [place] [address], [place] [address] 10 Oct, 2009 [facility] [address] [id number] [address] [place] [address], [place] [address] 02 Oct, 2009 [facility] [address] [id number] [address] [place] [address], [place] [address] Sep, [facility] [address] [id number] [address] [place] [address], [place] [address] 12 Sep, 2009 [facility] [address] [id number] [address] [place] [address], [place] [address] 04 Sep, 2009 [facility] [address] [id number] [address] [place] [address], [place] [address] 27 Aug, 2009 [facility] [address] [id number] [address] [place], [place] [address], [place] [id number] 24 Aug, 2009 [facility] [address] [id number] [place] [address], [place] [id number] Aug, [facility] [address] [facility] [id number] [address] [place] [address] 10 Jan, 2009 IMMUNIZATIONS No Known Immunizations [...]
--- OUTSIDE RECORDS SUMMARY | 2020-06-13 16:40 | XMS REPORT ---
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 Name Role Phone Migration, Doctor Unavailable Unavailable PROBLEMS Type Condition ICD9-CM Code TRA52-SV Code Onset Dates Condition S tatus SNOMED Code Problem Neuropathy G62.9 Active 408674272 Problem Chronic pain G89.29 Active 6813387 1 Problem Overactive bladder N32.81 Active 2 34815349 Problem Hypothyroid E03.9 Active 67499584 Problem Irritable bowel syndrome with diarrhea K58.0 Active 498171399 Problem MCC current use of insulin Z79.4 Active 576247960 Problem Type 2 diabetes mellitus with hyperglycemia E11.65 Active 39659876 Problem Chronic obstructive pulmonary disease, unspecified COPD ty pe J44.9 Active 71338880 Problem Gastroesophageal reflux disease with esophagitis K 21.0 Active 092271432 Problem Major depressive disorder, recurrent, in full remission F33.42 Active 58395724 Problem Mixed hyperlipidemia E78.2 Active 091292731 Problem Essential (primary) hypertension I10 Active 81393059 Problem Anxiety disorder, unspecified type F41.9 Active 904948417 Problem Gastroparesis K31.84 Active 796246 006 Problem 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 Active [id number] ALLERGIES No Information ENCOUNTERS Encounter Location Date Diagnosis [facility] [address] [facility] [id number] [address] [place] [id number] Jul, Chronic pain G89.29 [facility] [address] [facility] [id number] [address] [place] [phone] Jun, Other chronic pain G89.29 [facility] [address] [facility] [id number] [address] [place] [id number] Jun, [facility] [address] [facility] [id number] [address] [place] [address] Jun, Chronic pain G89.29 [facility] [address] [place] [id number] [address] [place] [address] Jun, Neuropathy G62.9 [place] [address] [place] [address] Jun, Encounter for Medicare kodi wellness exam Z00.00 ; Type 2 diabetes mellitus with hyperglycemia E11.65 ; Mixed hyperlipidemia E78.2 ; Hypothyroid E03.9 ; Gastroesophageal reflux disease with esophagitis K21.0 ; Essential (primary) hypertension I10 ; Major depressive disorder, recurrent, in full remission F33.42 ; Chronic obstructive pulmonary disease, unspecified COPD type J44.9 ; Neuropathy G62.9 and Encounter for immunization Z23 [place] [address] [address] Jun, Irritable bowel syndrome wit h diarrhea K58.0 [place] [address] [address] May, Chronic pain G89.29 [place] [address] [place] [id number] [address] [place] [address] May, Type 2 diabetes mellitus wit h hyperglycemia E11.65 and Neuropathy G62.9 [place] [address] [place] [id number] [address] [place] [address] May, Chronic pain G89.29 [place] [address] [place] [id number] [address] [place] [address] Apr, Poison maryam dermatitis L23.7 [place] [address] [place] [id number] [address] [place] [address] Apr, Chronic pain G89.29 [place] [address] [facility] [id number] [address] [place] [address] March, Type 2 diabetes mellitus wit h hyperglycemia E11.65 [place] [address] [facility] [id number] [address] [place] [address] March, Chronic pain G89.29 [place] [address] [facility] [id number] [address] [place] [address] March, [facility] [address] [place] [address] Feb, [facility] [address] [facility] [id number] [address] [place] [address] Feb, Other chronic pain G89.29 an d Chronic pain G89.29 [facility] [address] [facility] [id number] [address] [place] [address] Jan, Mixed hyperlipidemia E78.2 [facility] [address] [facility] [id number] [address] [place] [address] Jan, Chronic pain G89.29 [facility] [address] [facility] [id number] [address] [place] [address] Jan, Type 2 diabetes mellitus wit h hyperglycemia E11.65 ; Mixed hyperlipidemia E78.2 ; 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 ; Acquired hypothyroidism E03.9 and Essential (primary) hypertension I10 [facility] [address] [facility] [id number] [address] [place] [phone] Dec, Chronic pain G89.29 [facility] [address] [facility] [id number] [address] [place] [phone] Nov, Chronic pain G89.29 [facility] [address] [facility] [id number] [address] [place] [address] Nov, [facility] [address] [facility] [id number] [address] [place] [id number] Oct, Chronic pain G89.29 [facility] [address] [facility] [id number] [address] [place] [phone] Oct, [facility] [address] [facility] [id number] [address] [place] [phone] Sep, [facility] [address] [facility] [id number] [address] [place] [address] Sep, Type 2 diabetes mellitus wit h hyperglycemia E11.65 [facility] [address] [place] [address] Sep, Chronic pain G89.29 [place] [address] [address] Sep, [place] [address] [place] [id number] [address] [place] [address] Sep, Type 2 diabetes mellitus wit h hyperglycemia E11.65 ; Irritable bowel syndrome with diarrhea K58.0 ; Gastroparesis K31.84 ; 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 and Dermatitis L30.9 [place] [address] [place] [address] Aug, Chronic pain G89.29 [place] [address] [address] Jul, Chronic pain G89.29 [place] [address] [address] Jun, Type 2 diabetes mellitus wit h hyperglycemia E11.65 ; Neuropathy G62.9 ; Recurrent major depressive disorder, in partial remission F33.41 ; Chronic pain G89.29 and Hypertriglyceridemia E78.1 [place] [address] [place] [id number] [address] [place] [address] Jun, Hypothyroid E03.9 [place] [address] [address] Jun, Major depressive disorder, r ecurrent episode, moderate F33.1 and Anxiety disorder, unspecified type F41.9 [place] [address] [place] [address] Jun, [place] [address] [address] Jun, Type 2 diabetes mellitus wit h hyperglycemia E11.65 ; MCC current use of insulin Z79.4 ; Recurrent major depressive disorder, in partial remission F33.41 ; Hypothyroid E03.9 ; Candidal dermatitis B37.2 and Weakness generalized R53.1 [facility] [address] [id number] [address] [place] [phone] May, [facility] [address] [facility] [id number] [address] [place] [phone] May, [facility] [address] [facility] [id number] [address] [place] [phone] May, [facility] [address] [id number] [address] [place] [address] May, Generalized abdominal pain R 10.84 and Candidal dermatitis B37.2 [place] [address] [facility] [id number] [address] [place] [address] May, [place] [address] [facility] [id number] [address] [place] [address] May, [place] [address] [place] [id number] [place] [address] May, Nodular radiologic density R 93.8 ; Weight loss, unintentional R63.4 and Pulmonary emphysema, unspecified emphysema type J43.9 [place] [address] [place] [id number] [address] [place] [address] May, Chronic pain G89.29 [place] [address] [place] [id number] [address] [place] [address] May, Syncope and collapse R55 ; C hronic fatigue R53.[address] lung screening R91.8 [place] [address] [facility] [id number] [address] [place] [address] May, [place] [address] [facility] [id number] [address] [place] [address] Apr, Chronic fatigue R53.82 ; Abn ormal chest CT R93.8 ; Elevated erythrocyte sedimentation rate R70.0 ; Hypothyroid E03.9 and Recurrent major depressive disorder, in partial remission F33.41 [place] [address] [place] [id number] [address] [place] [phone] Apr, Hypothyroid E03.9 [facility] [address] [facility] [id number] [address] [place] [address] Apr, Depression F32.9 [facility] [address] [facility] [id number] [address] [place] [id number] Apr, [place] [address] [facility] [id number] [address] [place] [phone] March, [place] [address] [facility] [id number] [address] [place] [address] March, Hypothyroid E03.9 [place] [address] [facility] [id number] [address] [place] [id number] March, Diabetes mellitus E11.9 and Hypothyroid E03.9 [place] [address] [facility] [id number] [address] [place] [address] March, Diabetes mellitus E11.9 [place] [address] [facility] [id number] [address] [place] [id number] March, Hypothyroid E03.9 and Elevat ed liver enzymes R74.8 [place] [address] [facility] [id number] [address] [place] [phone] March, Type 2 diabetes mellitus wit h [...] disorder, in partial remission F33.41 [place] [address] [facility] [id number] [address] [place] [address] Feb, Chronic pain G89.29 [place] [address] [facility] [id number] [address] [place] [address] Feb, Type 2 diabetes mellitus wit h hyperglycemia E11.65 and Skin lesion of scalp L98.9 [place] [address] [place] [id number] [address] [place] [address] Feb, [place] [address] [place] [id number] [address] [place] [address] Jan, Type 2 diabetes mellitus wit h hyperglycemia E11.65 ; 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 ; Essential (primary) hypertension I10 ; Pulmonary emphysema, unspecified emphysema type J43.9 ; Chronic pain G89.29 ; Controlled substance agreement signed Z79.899 ; Hypothyroid E03.9 ; Neuropathy G62.9 ; Gastroesophageal reflux disease with esophagitis K21.0 ; Overactive bladder N32.81 ; Depression F32.9 and Irritable bowel syndrome with diarrhea K58.0 [place] [address] [place] [id number] [address] [place] [address] Jan, [place] [address] [address] Jan, Controlled substance agreeme nt signed Z79.899 [place] [address] [place] [id number] [address] [place] [address] Dec, Type 2 diabetes mellitus wit h [...] and Overweight (BMI 25.0-29.9) E66.3 [place] [address] [place] [id number] [address] [place] [address] Dec, Controlled substance agreeme nt signed Z79.899 [place] [address] [place] [address] Nov, Type 2 diabetes mellitus wit h hyperglycemia E11.65 and Current non- adherence to medical treatment Z91.19 [facility] [address] [facility] [id number] [address] [place] [address] Nov, [facility] [address] [facility] [id number] [address] [place] [address] Nov, Chronic pain G89.29 [facility] [address] [facility] [id number] [address] [place] [address] Nov, [facility] [address] [facility] [id number] [address] [place] [address] Nov, Hypothyroid E03.9 [place] [address] [facility] [id number] [address] [place] [phone] Nov, Hypothyroid E03.9 [place] [address] [facility] [id number] [address] [place] [phone] Nov, Pulmonary emphysema, unspeci fied emphysema type J43.9 and Irritable bowel syndrome with diarrhea K58.0 [place] [address] [facility] [id number] [address] [place] [address] Oct, [place] [address] [place] [id number] [address] [place] [phone] Oct, [place] [address] [place] [id number] [address] [place] [phone] Oct, [place] [address] [place] [id number] [address] [place] [address] Oct, [place] [address] [facility] [id number] [address] [place] [id number] Oct, Chronic pain G89.29 [place] [address] [facility] [id number] [address] [place] [address] Oct, Diabetes mellitus E11.9 ; De pression F32.9 ; Mixed hyperlipidemia E78.2 ; Hypotension, unspecified hypotension type I95.9 ; Pulmonary emphysema, unspecified emphysema type J43.9 and Weight loss, unintentional R63.4 [place] [address] [place] [id number] [address] [place] [address] Oct, Chronic pain G89.29 [facility] [address] [address] Sep, Chronic pain G89.29 [place] [address] [place] [id number] [place] [address] Sep, Hypothyroid E03.9 and Diabet es mellitus E11.9 [place] [address] [place] [id number] [address] [place] [address] Aug, Type 2 diabetes mellitus wit h hyperglycemia E11.65 ; 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 ; Essential (primary) hypertension I10 ; Hypothyroid E03.9 ; Neuropathy G62.9 ; Chronic pain G89.29 ; Mixed hy perlipidemia E78.2 and Encounter for immunization Z23 [place] [address] [address] Aug, Chronic pain G89.29 [place] [address] [address] Aug, Overactive bladder N32.81 ; Diabetes mellitus E11.9 and Chronic pain G89.29 [place] [id number] [place] [id number] [address] [place] [address] Jul, [place] [address] [place] [id number] [address] [place] [phone] Jun, [place] [address] [place] [id number] [address] [place] [address] Jun, [place] [address] [place] [id number] [address] [place] [address] Jun, Hypothyroid E03.9 [facility] [address] [place] [id number] [address] [place] [address] Jun, Diabetes mellitus E11.9 ; Hy pothyroid E03.9 ; Neuropathy G62.9 ; Chronic pain G89.29 and Neck mass R22.1 [facility] [address] [facility] [id number] [address] [place] [id number] Apr, [facility] [address] [facility] [id number] [address] [place] [id number] Apr, Acute cystitis without hemat uria N30.00 [facility] [address] [facility] [id number] [address] [place] [phone] March, [facility] [address] [facility] [id number] [address] [place] [phone] March, [facility] [address] [facility] [id number] [address] [place] [address] March, Near syncope R55 [facility] [address] [facility] [id number] [address] [place] [phone] Feb, [facility] [address] [facility] [id number] [address] [place] [address] Feb, Chronic pain G89.29 [facility] [address] [facility] [id number] [address] [place] [id number] Feb, [facility] [address] [facility] [id number] [address] [place] [id number] Feb, [facility] [address] [facility] [id number] [address] [place] [id number] Jan, Chronic pain G89.29 [facility] [address] [facility] [id number] [address] [place] [address] Jan, [facility] [address] [facility] [id number] [address] [place] [phone] Jan, [facility] [address] [facility] [id number] [address] [place] [id number] 14 Jan, 2017 Diabetes mellitus E11.9 ; Hy pothyroid E03.9 ; GERD (gastroesophageal reflux disease) K21.9 ; Insomnia G47.00 ; Functional diarrhea K59.1 ; Neuropathy G62.9 ; Depression F32.9 ; Chronic pain G89.29 ; Irritable bowel syndrome with diarrhea K58.0 ; Overactive bladder N32.81 ; Mixed hyperlipidemia E78.2 and Bronchitis J40 [facility] [address] [facility] [id number] [address] [place] [phone] Dec, [facility] [address] [facility] [id number] [address] [place] [phone] Dec, [facility] [address] [facility] [id number] [address] [place] [phone] Dec, [facility] [address] [facility] [id number] [address] [place] [phone] Dec, [facility] [address] [facility] [id number] [address] [place] [address] Dec, Chronic pain G89.29 [facility] [address] [place] [address] Dec, [facility] [address] [place] [id number] [address] [place] [address] Dec, [facility] [address] [place] [id number] [address] [place] [address] Dec, Type 2 diabetes mellitus wit h foot ulcer E11.621 [facility] [address] [address] 17 Dec, 2016 Type 2 diabetes mellitus wit h foot ulcer E11.621 [place] [id number] [place] [address] 14 Dec, 2016 HTN (hypertension) I10 ; Dep ression F32.9 ; Type 2 diabetes mellitus with foot ulcer E11.621 ; Functional diarrhea K59.1 ; Irritable bowel syndrome with diarrhea K58.0 ; Chronic pain G89.29 ; Insomnia G47.00 ; Overactive bladder N32.81 ; Mixed hyperlipidemia E78.2 ; Gastroesophageal reflux disease with esophagitis K21.0 and Acquired hypothyroidism E03.9 [facility] [id number] [place] [address] Nov, [place] [address] [address] Oct, [place] [address] [address] Oct, [place] [address] [address] Oct, [place] [address] [address] Sep, Functional diarrhea K59.1 ; HTN (hypertension) I10 ; Diabetes mellitus E11.9 ; Depression F32.9 ; Overactive bladder N32.81 ; Mixed hyperlipidemia E78.2 ; Gastroesophageal reflux disease without esophagitis K21.9 ; Chronic pain G89.29 ; Insomnia G47.00 and Acquired hypothyroidism E03.9 [place] [address] [address] Sep, [place] [address] [address] Aug, Encounter for immunization Z [address] [address] Aug, [place] [address] [address] Jul, [place] [address] [address] Jun, Type 2 diabetes mellitus wit hout complications E11.9 ; HTN (hypertension) I10 ; Hypothyroid E03.9 ; Neuropathy G62.9 ; Depression F32.9 ; Chronic pain G89.29 ; GERD (gastroesophageal reflux disease) K21.9 ; Insomnia G47.00 ; Overactive bladder N32.81 ; Mixed hyperlipidemia E78.2 ; Diarrhea of infectious origin A09 and Environmental allergies Z91.[address] [address] Apr, [place] [id number] [place] [id number] [address] [place] [address] March, Hypothyroidism, unspecified E03.9 and Mixed hyperlipidemia E78.2 [place] [address] [address] March, Diabetes mellitus E11.9 ; HT N (hypertension) I10 ; Hypothyroid E03.9 ; Depression F32.9 ; Overactive bladder N32.81 ; Other chronic pain G89.29 ; Lumbago with sciatica, unspecified side M54.40 ; Environmental allergies Z91.09 and Gastroesophageal reflux disease, esophagitis presence not specified K21.9 [place] [address] [address] March, [place] [address] [address] Jan, HTN (hypertension) I10 ; Hyp othyroid E03.9 ; Neuropathy G62.9 ; Diabetes mellitus E11.9 ; Chronic pain G89.29 ; GERD (gastroesophageal reflux disease) K21.9 ; Overactive bladder N32.81 and Depression F32.9 [place] [address] [address] Dec, Ear pain, left H92.02 ; HTN (hypertension) I10 ; Hypothyroid E03.9 ; Neuropathy G62.9 ; Diabetes mellitus E11.9 ; Depression F32.9 ; GERD (gastroesophageal reflux disease) K21.9 ; Insomnia G47.00 and Overactive bladder N32.81 [place] [address] [place] [id number] [address] [place] [address] Nov, Overactive bladder N32.81 an d Chronic pain G89.29 [place] [address] [place] [id number] [address] [place] [address] Nov, Kidney failure N19 [place] [address] [place] [id number] [address] [place] [address] Nov, [place] [address] [address] Nov, [address] [address] Nov, Diabetes mellitus E11.9 ; De pression F32.9 ; Chronic pain G89.29 ; GERD (gastroesophageal reflux disease) K21.9 ; Insomnia G47.00 ; HTN (hypertension) I10 ; Hypothyroid E03.9 ; COPD (chronic obstructive pulmonary disease) J44.9 ; Bladder incontinence R32 and Incontinence R32 [address] [address] Sep, Type 2 diabetes mellitus wit h foot ulcer E11.621 and Chromosomal abnormality, 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 [address] Sep, [address] [address] Aug, [place] [address] [address] Aug, [address] [address] Aug, HTN (hypertension) I10 ; Enc ounter for immunization Z23 ; Hypothyroid E03.9 ; Neuropathy G62.9 ; Diabetes mellitus E11.9 ; Depression F32.9 ; Chronic pain G89.29 ; GERD (gastroesophageal reflux disease) K21.9 ; Insomnia G47.00 and COPD (chronic obstructive pulmonary disease) J44.9 [place] [address] [address] Jun, [address] [address] Jun, [place] [address] [address] May, Essential hypertension, ivis gn 401.1 ; Unspecified hypothyroidism 244.9 ; Insomnia, unspecified 780.52 ; Shortness of breath 786.05 ; Depression 311 ; COPD (chronic obstructive pulmonary disease) 496 ; GERD (gastroesophageal reflux disease) 530.81 and Diabetes 1.5, 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 [facility] [address] [address] May, [facility] [address] [address] May, [facility] [address] [address] May, Shortness of breath 786.05 ; Essential hypertension, benign 401.1 ; Diabetes mellitus 250.00 ; Hyperlipidemia 272.4 ; Hypothyroid 244.9 ; Insomnia 780.52 and Cough 786.2 [facility] [address] [address] Apr, [facility] [address] [address] March, Shortness of breath 786.05 ; Nausea with vomiting 787.01 ; Essential hypertension, benign 401.1 ; Diabetes mellitus 250.00 ; Hyperlipidemia 272.4 and Hypothyroid 244.9 [facility] [address] [place] [id number] [place] [id number] Feb, [facility] [address] [place] [id number] [place] [id number] Feb, [facility] [address] [id number] [address] [place] [id number] Jan, [facility] [address] [id number] [address] [place] [address] Jan, [facility] [address] [address] Jan, [facility] [address] [id number] [address] [place] [address] Jan, [facility] [address] [place] [address] 05 Jan, 2014 [facility] [address] [id number] [address] [place] [address], [place] [address] Jan, 2014 [facility] [address] [id number] [address] [place] [address], [place] [address] Jan, 2014 [facility] [address] [id number] [address] [place] [address], [place] [address] Jan, 2014 [facility] [address] [id number] [address] [place] [address], [place] [address] Jan, 2014 [facility] [address] [id number] [address] [place] [address], [place] [address] Jan, 2014 [facility] [address] [id number] [address] [place] [address], [place] [address] Dec, 2014 [facility] [address] [id number] [address] [place] [address], [place] [address] Dec, 2014 [facility] [address] [id number] [address] [place] [address], [place] [address] Dec, 2014 [facility] [address] [id number] [address] [place] [address], [place] [address] Dec, 2014 [facility] [address] [id number] [address] [place] [address], [place] [address] Dec, 2014 [facility] [address] [id number] [address] [place] [address], [place] [address] Dec, 2014 [facility] [address] [id number] [address] [place] [address], [place] [address] Dec, 2014 [facility] [address] [id number] [address] [place] [address], [place] [address] Dec, 2014 [facility] [address] [id number] [address] [place] [address], [place] [address] Dec, 2014 [facility] [address] [id number] [address] [place] [address], [place] [address] Dec, [facility] [address] [id number] [facility] [place] [address] Oct, [facility] [address] [id number] [address] [place] [address], [place] [address] Oct, [facility] [address] [id number] [address] [place] [address], [place] [address] Oct, [facility] [address] [id number] [address] [place] [address], [place] [address] Oct, [facility] [address] [id number] [address] [place] [address], [place] [address] Oct, [facility] [address] [id number] [address] [place] [address], [place] [address] Oct, [facility] [address] [id number] [address] [place] [address], [place] [address] Oct, [facility] [address] [id number] [address] [place] [address], [place] [address] Oct, [facility] [address] [id number] [address] [place] [address], [place] [address] Oct, [facility] [address] [id number] [address] [place] [address], [place] [address] Oct, [facility] [address] [id number] [address] [place] [address], [place] [address] Oct, [facility] [address] [id number] [address] [place] [address], [place] [address] Oct, [facility] [address] [id number] [address] [place] [address], [place] [address] Oct, [facility] [address] [id number] [address] [place] [address], [place] [address] Oct, [facility] [address] [id number] [address] [place] [address], [place] [address] Sep, [facility] [address] [id number] [address] [place] [address], [place] [address] Sep, [facility] [address] [id number] [address] [place] [address], [place] [address] Sep, [facility] [address] [id number] [address] [place] [address], [place] [address] Sep, [facility] [address] [id number] [address] [place] [address], [place] [address] Sep, [facility] [address] [id number] [address] [place] [address], [place] [address] Sep, [facility] [address] [id number] [address] [place] [address], [place] [address] Sep, [facility] [address] [id number] [address] [place] [address], [place] [address] Sep, [facility] [address] [id number] [address] [place] [address], [place] [address] Sep, [facility] [address] [id number] [address] [place] [address], [place] [address] Aug, [facility] [address] [id number] [address] [place] [address], [place] [address] Aug, [facility] [address] [id number] [address] [place] [address], [place] [address] Aug, [facility] [address] [id number] [address] [place] [address], [place] [address] Aug, [facility] [address] [id number] [address] [place] [address], [place] [address] 16 Aug, 2014 [facility] [address] [id number] [address] [place] [address], [place] [address] Aug, [facility] [address] [id number] [address] [place] [address], [place] [address] Aug, [facility] [address] [id number] [address] [place] [address], [place] [address] Aug, [facility] [address] [id number] [facility] [place] [address] Aug, [facility] [address] [id number] [address] [place] [address], [place] [address] Jul, [facility] [address] [id number] [address] [place] [address], [place] [address] Jul, [facility] [address] [id number] [address] [place] [address], [place] [address] Jul, [facility] [address] [id number] [address] [place] [address], [place] [address] Jul, [facility] [address] [id number] [address] [place] [address], [place] [address] Jul, [facility] [address] [id number] [address] [place] [address], [place] [address] Jul, [facility] [address] [id number] [address] [place] [address], [place] [address] Jul, [facility] [address] [id number] [address] [place] [address], [place] [address] Jul, [facility] [address] [id number] [address] [place] [address], [place] [address] Jul, [facility] [address] [id number] [address] [place] [address], [place] [address] Jul, [facility] [address] [id number] [address] [place] [address], [place] [address] Jun, [facility] [address] [id number] [address] [place] [address], [place] [address] Jun, [facility] [address] [id number] [address] [place] [address], [place] [address] Jun, [facility] [address] [id number] [address] [place] [address], [place] [address] Jun, [facility] [address] [id number] [address] [place] [address], [place] [address] Jun, [facility] [address] [id number] [facility] [place] [address] Jun, [facility] [address] [id number] [address] [place] [address], [place] [address] Jun, [facility] [address] [id number] [address] [place] [address], [place] [address] Jun, [facility] [address] [id number] [address] [place] [address], [place] [address] Jun, [facility] [address] [id number] [address] [place] [address], [place] [address] Jun, [facility] [address] [id number] [address] [place] [address], [place] [address] Jun, [facility] [address] [id number] [address] [place] [address], [place] [address] Jun, [facility] [address] [id number] [address] [place] [address], [place] [address] May, [facility] [address] [id number] [address] [place] [address], [place] [address] May, [facility] [address] [id number] [address] [place] [address], [place] [address] May, [facility] [address] [id number] [address] [place] [address], [place] [address] May, [facility] [address] [id number] [address] [place] [address], [place] [address] May, [facility] [address] [id number] [address] [place] [address], [place] [address] May, [facility] [address] [id number] [address] [place] [address], [place] [address] March, [facility] [address] [id number] [address] [place] [address], [place] [address] March, [facility] [address] [id number] [facility] [place] [address] March, [facility] [address] [id number] [address] [place] [address], [place] [address] March, [facility] [address] [id number] [address] [place] [address], [place] [address] March, [facility] [address] [id number] [address] [place] [address], [place] [address] March, [facility] [address] [id number] [address] [place] [address], [place] [address] Feb, [facility] [address] [id number] [address] [place] [address], [place] [address] Feb, [facility] [address] [id number] [address] [place] [address], [place] [address] Feb, [facility] [address] [id number] [address] [place] [address], [place] [address] Feb, [facility] [address] [id number] [address] [place] [address], [place] [address] Jan, [facility] [address] [id number] [address] [place] [address], [place] [address] Jan, [facility] [address] [id number] [address] [place] [address], [place] [address] Jan, [facility] [address] [id number] [address] [place] [address], [place] [address] Jan, [facility] [address] [id number] [address] [place] [address], [place] [address] Jan, [facility] [address] [id number] [address] [place] [address], [place] [address] Jan, [facility] [address] [id number] [address] [place] [address], [place] [address] Jan, [facility] [address] [id number] [address] [place] [address], [place] [address] Jan, [facility] [address] [id number] [facility] [place] [address] Jan, [facility] [address] [id number] [address] [place] [address], [place] [address] Jan, [facility] [address] [id number] [facility] [place] [address] Jan, [facility] [address] [id number] [address] [place] [address], [place] [address] Jan, [facility] [address] [id number] [address] [place] [address], [place] [address] Dec, [facility] [address] [id number] [address] [place] [address], [place] [address] Dec, [facility] [address] [id number] [address] [place] [address], [place] [address] Dec, [facility] [address] [id number] [address] [place] [address], [place] [address] Dec, [facility] [address] [id number] [address] [place] [address], [place] [address] Dec, [facility] [address] [id number] [address] [place] [address], [place] [address] Dec, [facility] [address] [id number] [address] [place] [address], [place] [address] Nov, [facility] [address] [id number] [address] [place] [address], [place] [address] Nov, [facility] [address] [id number] [address] [place] [address], [place] [address] Oct, [facility] [address] [id number] [address] [place] [address], [place] [address] Oct, [facility] [address] [id number] [address] [place] [address], [place] [address] Oct, [facility] [address] [id number] [address] [place] [address], [place] [address] Oct, [facility] [address] [id number] [address] [place] [address], [place] [address] Oct, [facility] [address] [id number] [address] [place] [address], [place] [address] Oct, [facility] [address] [id number] [address] [place] [address], [place] [address] Sep, [facility] [address] [id number] [address] [place] [address], [place] [address] Sep, [facility] [address] [id number] [address] [place] [address], [place] [address] Sep, [facility] [address] [id number] [address] [place] [address], [place] [address] Sep, [facility] [address] [id number] [address] [place] [address], [place] [address] Aug, [facility] [address] [id number] [address] [place] [address], [place] [address] Aug, [facility] [address] [id number] [address] [place] [address], [place] [address] Aug, [facility] [address] [id number] [address] [place] [address], [place] [address] 17 Jul, 2013 [facility] [address] [id number] [address] [place] [address], [place] [address] 14 Jul, 2013 [facility] [address] [id number] [address] [place] [address], [place] [address] Jul, [facility] [address] [id number] [address] [place] [address], [place] [address] Jun, [facility] [address] [id number] [address] [place] [address], [place] [address] Jun, [facility] [address] [id number] [address] [place] [address], [place] [address] Jun, [facility] [address] [id number] [address] [place] [address], [place] [address] Apr, [facility] [address] [id number] [address] [place] [address], [place] [address] Apr, [facility] [address] [id number] [address] [place] [address], [place] [address] March, [facility] [address] [id number] [address] [place] [address], [place] [address] March, [facility] [address] [id number] [address] [place] [address], [place] [address] March, [facility] [address] [id number] [address] [place] [address], [place] [address] March, [facility] [address] [id number] [address] [place] [address], [place] [address] Feb, [facility] [address] [id number] [address] [place] [address], [place] [address] Jan, [facility] [address] [id number] [address] [place] [address], [place] [address] Dec, [facility] [address] [id number] [address] [place] [address], [place] [address] Dec, [facility] [address] [id number] [address] [place] [address], [place] [address] Dec, [facility] [address] [id number] [address] [place] [address], [place] [address] Nov, [facility] [address] [id number] [address] [place] [address], [place] [address] Oct, [facility] [address] [id number] [address] [place] [address], [place] [address] Oct, [facility] [address] [id number] [address] [place] [address], [place] [address] Sep, [facility] [address] [id number] [address] [place] [address] Sep, [facility] [address] [id number] [address] [place] [address], [place] [address] Sep, [facility] [address] [id number] [address] [place] [address] Sep, [facility] [address] [id number] [address] [place] [address], [place] [address] Sep, [facility] [address] [id number] [address] [place] [address], [place] [address] Sep, [facility] [address] [id number] [address] [place] [address], [place] [address] Sep, [facility] [address] [id number] [address] [place] [address], [place] [address] Aug, [facility] [address] [id number] [address] [place] [address] Aug, [facility] [address] [id number] [address] [place] [address] Aug, [facility] [address] [id number] [address] [place] [address], [place] [address] Aug, [facility] [address] [id number] [address] [place] [address] Aug, [facility] [address] [id number] [address] [place] [address] Aug, [facility] [address] [id number] [address] [place] [address] Aug, [facility] [address] [id number] [address] [place] [address] Aug, [facility] [address] [id number] [address] [place] [address], [place] [address] Jul, [facility] [address] [id number] [address] [place] [address] 12 Jul, 2012 [facility] [address] [id number] [facility] [place] [address] Jun, [facility] [address] [id number] [address] [place] [address], [place] [address] May, [facility] [address] [id number] [address] [place] [address], [place] [address] Apr, [facility] [address] [id number] [address] [place] [address], [place] [address] Apr, [facility] [address] [id number] [address] [place] [address], [place] [address] Apr, [facility] [address] [id number] [address] [place] [address], [place] [address] March, [facility] [address] [id number] [address] [place] [address], [place] [address] March, [facility] [address] [id number] [address] [place] [address], [place] [address] March, [facility] [address] [id number] [address] [place] [address], [place] [address] March, [facility] [address] [id number] [address] [place] [address], [place] [address] March, [facility] [address] [id number] [address] [place] [address], [place] [address] March, [facility] [address] [id number] [address] [place] [address], [place] [address] March, [facility] [address] [id number] [address] [place] [address], [place] [address] Jan, [facility] [address] [id number] [address] [place] [address], [place] [address] Jan, [facility] [address] [id number] [address] [place] [address], [place] [address] Jan, [facility] [address] [id number] [address] [place] [address], [place] [address] 13 Jan, 2012 [facility] [address] [id number] [address] [place] [address], [place] [address] Jan, [facility] [address] [id number] [address] [place] [address], [place] [address] 08 Dec, 2011 [facility] [address] [id number] [address] [place] [address], [place] [address] Dec, [facility] [address] [id number] [address] [place] [address], [place] [address] Nov, [facility] [address] [id number] [address] [place] [address], [place] [address] Nov, [facility] [address] [id number] [address] [place] [address], [place] [address] Nov, [facility] [address] [id number] [address] [place] [address], [place] [address] Nov, [facility] [address] [id number] [address] [place] [address], [place] [address] Oct, [facility] [address] [id number] [address] [place] [address], [place] [address] Oct, [facility] [address] [id number] [address] [place] [address], [place] [address] Sep, [facility] [address] [id number] [address] [place] [address], [place] [address] Sep, [facility] [address] [id number] [address] [place] [address], [place] [address] Sep, [facility] [address] [id number] [address] [place] [address], [place] [address] May, [facility] [address] [id number] [address] [place] [address], [place] [address] Nov, [facility] [address] [id number] [address] [place] [address], [place] [address] Oct, [facility] [address] [id number] [address] [place] [address], [place] [address] 14 Oct, 2010 [facility] [address] [id number] [address] [place] [address], [place] [address] 08 Oct, 2010 [facility] [address] [id number] [address] [place] [address], [place] [address] 15 Sep, 2010 [facility] [address] [id number] [address] [place] [address], [place] [address] 02 Sep, 2010 [facility] [address] [id number] [address] [place] [address], [place] [address] 20 Aug, 2010 [facility] [address] [id number] [address] [place] [address], [place] [address] March, [facility] [address] [id number] [address] [place] [address], [place] [address] 17 Oct, 2009 [facility] [address] [id number] [address] [place] [address], [place] [address] 17 Oct, 2009 [facility] [address] [id number] [address] [place] [address], [place] [address] 10 Oct, 2009 [facility] [address] [id number] [address] [place] [address], [place] [address] 02 Oct, 2009 [facility] [address] [id number] [address] [place] [address], [place] [address] Sep, [facility] [address] [id number] [address] [place] [address], [place] [address] 12 Sep, 2009 [facility] [address] [id number] [address] [place] [address], [place] [address] 04 Sep, 2009 [facility] [address] [id number] [address] [place] [address], [place] [address] 27 Aug, 2009 [facility] [address] [id number] [address] [place] [address], [place] [address] 24 Aug, 2009 [facility] [address] [id number] [address] [place] [address], [place] [address] Aug, [facility] [address] [facility] [id number] [address] [place] [address] 10 Jan, 2009 IMMUNIZATIONS No Known Immunizations [...]
--- OUTSIDE RECORDS SUMMARY | 2020-06-13 16:41 | XMS REPORT ---
Author Author Jah Durant Doctor Organization [facility] Address Unknown Phone Unavailable Care Team Providers Care Education Site Manager Name Role Phone Migration, Doctor Unavailable Unavailable PROBLEMS Type Condition ICD9-CM Code EQA92-NW Code Onset Dates Condition S tatus SNOMED Code Problem Neuropathy G62.9 Active 372429415 Problem Chronic pain G89.29 Active 3344645 1 Problem Overactive bladder N32.81 Active 2 13683959 Problem Hypothyroid E03.9 Active 43055849 Problem Irritable bowel syndrome with diarrhea K58.0 Active 644058568 Problem alf current use of insulin Z79.4 Active 072377264 Problem Type 2 diabetes mellitus with hyperglycemia E11.65 Active 59433022 Problem Chronic obstructive pulmonary disease, unspecified COPD ty pe J44.9 Active 13328418 Problem Gastroesophageal reflux disease with esophagitis K 21.0 Active 203768088 Problem Major depressive disorder, recurrent, in full remission F33.42 Active 64416941 Problem Mixed hyperlipidemia E78.2 Active 845845405 Problem Essential (primary) hypertension I10 Active 24222032 Problem Anxiety disorder, unspecified type F41.9 Active 285610317 Problem Gastroparesis K31.84 Active 406188 006 Problem 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 Active [id number] ALLERGIES No Information ENCOUNTERS Encounter Location Date Diagnosis [facility], [place] [address] [facility] [id number] [address] [place] [address] Jul, Chronic pain G89.29 [facility], [place] [address] [facility] [id number] [address] [place] [address] Jun, Other chronic pain G89.29 [facility], [place] [address] [facility] [id number] [address] [place] [address] Jun, [facility], [place] [address] [facility] [id number] [address] [place] [address] Jun, Chronic pain G89.29 [facility], [place] [address] [place] [id number] [address] [place] [address] Jun, Neuropathy G62.9 [place] [address] [place] [address] Jun, Encounter for Medicare kodi wellness exam Z00.00 ; Type 2 diabetes mellitus with hyperglycemia E11.65 ; Mixed hyperlipidemia E78.2 ; Hypothyroid E03.9 ; Gastroesophageal reflux disease with esophagitis K21.0 ; Essential (primary) hypertension I10 ; Major depressive disorder, recurrent, in full remission F33.42 ; Chronic obstructive pulmonary disease, unspecified COPD type J44.9 ; Neuropathy G62.9 and Encounter for immunization Z23 [place] [address] [address] Jun, Irritable bowel syndrome wit h diarrhea K58.0 [place] [address] [address] May, Chronic pain G89.29 [place] [address] [place] [id number] [address] [place] [address] May, Type 2 diabetes mellitus wit h hyperglycemia E11.65 and Neuropathy G62.9 [place] [address] [place] [id number] [address] [place] [address] May, Chronic pain G89.29 [place] [address] [place] [id number] [address] [place] [address] Apr, Poison maryam dermatitis L23.7 [place] [address] [place] [id number] [address] [place] [address] Apr, Chronic pain G89.29 [place] [address] [facility] [id number] [address] [place] [address] March, Type 2 diabetes mellitus wit h hyperglycemia E11.65 [place] [address] [facility] [id number] [address] [place] [address] March, Chronic pain G89.29 [place] [address] [facility] [id number] [address] [place] [address] March, [facility] [address] [place] [address] Feb, [facility], [place] [address] [facility] [id number] [address] [place] [address] Feb, Other chronic pain G89.29 an d Chronic pain G89.29 [facility], [place] [address] [facility] [id number] [address] [place] [address] Jan, Mixed hyperlipidemia E78.2 [facility], [place] [address] [facility] [id number] [address] [place] [address] Jan, Chronic pain G89.29 [facility], [place] [address] [facility] [id number] [address] [place] [address] Jan, Type 2 diabetes mellitus wit h hyperglycemia E11.65 ; Mixed hyperlipidemia E78.2 ; manager terminal current use of insulin Z79.4 ; Acquired hypothyroidism E03.9 and Essential (primary) hypertension I10 [facility], [place] [address] [facility] [id number] [address] [place] [address] Dec, Chronic pain G89.29 [facility], [place] [address] [facility] [id number] [address] [place] [address] Nov, Chronic pain G89.29 [facility], [place] [address] [facility] [id number] [address] [place] [address] Nov, [facility], [place] [address] [facility] [id number] [address] [place] [address] Oct, Chronic pain G89.29 [facility], [place] [address] [facility] [id number] [address] [place] [address] Oct, [facility], [place] [address] [facility] [id number] [address] [place] [address] Sep, [facility], [place] [address] [facility] [id number] [address] [place] [address] Sep, Type 2 diabetes mellitus wit h hyperglycemia E11.65 [facility], [place] [address] [place] [address] Sep, Chronic pain G89.29 [place] [address] [address] Sep, [place] [address] [place] [id number] [address] [place] [address] Sep, Type 2 diabetes mellitus wit h hyperglycemia E11.65 ; Irritable bowel syndrome with diarrhea K58.0 ; Gastroparesis K31.84 ; 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 and Dermatitis L30.9 [place] [address] [place] [address] Aug, Chronic pain G89.29 [place] [address] [address] Jul, Chronic pain G89.29 [place] [address] [address] Jun, Type 2 diabetes mellitus wit h hyperglycemia E11.65 ; Neuropathy G62.9 ; Recurrent major depressive disorder, in partial remission F33.41 ; Chronic pain G89.29 and Hypertriglyceridemia E78.1 [place] [address] [place] [id number] [address] [place] [address] Jun, Hypothyroid E03.9 [place] [address] [address] Jun, Major depressive disorder, r ecurrent episode, moderate F33.1 and Anxiety disorder, unspecified type F41.9 [place] [address] [place] [address] Jun, [place] [address] [address] Jun, Type 2 diabetes mellitus wit h hyperglycemia E11.65 ; alf current use of insulin Z79.4 ; Recurrent major depressive disorder, in partial remission F33.41 ; Hypothyroid E03.9 ; Candidal dermatitis B37.2 and Weakness generalized R53.1 [facility], [place] [address] [id number] [address] [place] [address] May, [facility], [place] [address] [facility] [id number] [address] [place] [address] May, [facility], [place] [address] [facility] [id number] [address] [place] [address] May, [facility], [place] [address] [id number] [address] [place] [address] May, Generalized abdominal pain R 10.84 and Candidal dermatitis B37.2 [place] [address] [facility] [id number] [address] [place] [address] May, [place] [address] [facility] [id number] [address] [place] [address] May, [place] [address] [place] [id number] [place] [address] May, Nodular radiologic density R 93.8 ; Weight loss, unintentional R63.4 and Pulmonary emphysema, unspecified emphysema type J43.9 [place] [address] [place] [id number] [address] [place] [address] May, Chronic pain G89.29 [place] [address] [place] [id number] [address] [place] [address] May, Syncope and collapse R55 ; C hronic fatigue R53.[address] lung screening R91.8 [place] [address] [facility] [id number] [address] [place] [address] May, [place] [address] [facility] [id number] [address] [place] [address] Apr, Chronic fatigue R53.82 ; Abn ormal chest CT R93.8 ; Elevated erythrocyte sedimentation rate R70.0 ; Hypothyroid E03.9 and Recurrent major depressive disorder, in partial remission F33.41 [place] [address] [place] [id number] [address] [place] [address] Apr, Hypothyroid E03.9 [facility], [place] [address] [facility] [id number] [address] [place] [address] Apr, Depression F32.9 [facility], [place] [address] [facility] [id number] [address] [place] [address] Apr, [place] [address] [facility] [id number] [address] [place] [address] March, [place] [address] [facility] [id number] [address] [place] [address] March, Hypothyroid E03.9 [place] [address] [facility] [id number] [address] [place] [address] March, Diabetes mellitus E11.9 and Hypothyroid E03.9 [place] [address] [facility] [id number] [address] [place] [address] March, Diabetes mellitus E11.9 [place] [address] [facility] [id number] [address] [place] [address] March, Hypothyroid E03.9 and Elevat ed liver enzymes R74.8 [place] [address] [facility] [id number] [address] [place] [address] March, Type 2 diabetes mellitus wit h [...] disorder, in partial remission F33.41 [place] [address] [facility] [id number] [address] [place] [address] Feb, Chronic pain G89.29 [place] [address] [facility] [id number] [address] [place] [address] Feb, Type 2 diabetes mellitus wit h hyperglycemia E11.65 and Skin lesion of scalp L98.9 [place] [address] [place] [id number] [address] [place] [address] Feb, [place] [address] [place] [id number] [address] [place] [address] Jan, Type 2 diabetes mellitus wit h [...] bowel syndrome with diarrhea K58.0 [place] [address] [place] [id number] [address] [place] [address] Jan, [place] [address] [address] Jan, Controlled substance agreeme nt signed Z79.899 [place] [address] [place] [id number] [address] [place] [address] Dec, Type 2 diabetes mellitus wit h [...] and Overweight (BMI 25.0-29.9) E66.3 [place] [address] [place] [id number] [address] [place] [address] Dec, Controlled substance agreeme nt signed Z79.899 [place] [address] [place] [address] Nov, Type 2 diabetes mellitus wit h hyperglycemia E11.65 and Current non- adherence to medical treatment Z91.19 [facility], [place] [address] [facility] [id number] [address] [place] [address] Nov, [facility], [place] [address] [facility] [id number] [address] [place] [address] Nov, Chronic pain G89.29 [facility], [place] [address] [facility] [id number] [address] [place] [address] Nov, [facility], [place] [address] [facility] [id number] [address] [place] [address] Nov, Hypothyroid E03.9 [place] [address] [facility] [id number] [address] [place] [address] Nov, Hypothyroid E03.9 [place] [address] [facility] [id number] [address] [place] [address] Nov, Pulmonary emphysema, unspeci fied emphysema type J43.9 and Irritable bowel syndrome with diarrhea K58.0 [place] [address] [facility] [id number] [address] [place] [address] Oct, [place] [address] [place] [id number] [address] [place] [address] Oct, [place] [address] [place] [id number] [address] [place] [address] Oct, [place] [address] [place] [id number] [address] [place] [address] Oct, [place] [address] [facility] [id number] [address] [place] [address] Oct, Chronic pain G89.29 [place] [address] [facility] [id number] [address] [place] [address] Oct, Diabetes mellitus E11.9 ; De pression F32.9 ; Mixed hyperlipidemia E78.2 ; Hypotension, unspecified hypotension type I95.9 ; Pulmonary emphysema, unspecified emphysema type J43.9 and Weight loss, unintentional R63.4 [place] [address] [place] [id number] [address] [place] [address] Oct, Chronic pain G89.29 [facility], [place] [address] [address] Sep, Chronic pain G89.29 [place] [address] [place] [id number] [place] [address] Sep, Hypothyroid E03.9 and Diabet es mellitus E11.9 [place] [address] [place] [id number] [address] [place] [address] Aug, Type 2 diabetes mellitus wit h hyperglycemia E11.65 ; manager terminal current use of insulin Z79.4 ; Essential (primary) hypertension I10 ; Hypothyroid E03.9 ; Neuropathy G62.9 ; Chronic pain G89.29 ; Mixed hy perlipidemia E78.2 and Encounter for immunization Z23 [place] [address] [address] Aug, Chronic pain G89.29 [place] [address] [address] Aug, Overactive bladder N32.81 ; Diabetes mellitus E11.9 and Chronic pain G89.29 [place] [id number] [place] [id number] [address] [place] [address] Jul, [place] [address] [place] [id number] [address] [place] [address] Jun, [place] [address] [place] [id number] [address] [place] [address] Jun, [place] [address] [place] [id number] [address] [place] [address] Jun, Hypothyroid E03.9 [facility] [place] [address] [place] [id number] [address] [place] [address] Jun, Diabetes mellitus E11.9 ; Hy pothyroid E03.9 ; Neuropathy G62.9 ; Chronic pain G89.29 and Neck mass R22.1 [facility], [place] [address] [facility] [id number] [address] [place] [address] Apr, [facility] [place] [address] [facility] [id number] [address] [place] [address] Apr, Acute cystitis without hemat uria N30.00 [facility], [place] [address] [facility] [id number] [address] [place] [address] March, [facility], [place] [address] [facility] [id number] [address] [place] [address] March, [facility], [place] [address] [facility] [id number] [address] [place] [address] March, Near syncope R55 [facility], [place] [address] [facility] [id number] [address] [place] [address] Feb, [facility], [place] [address] [facility] [id number] [address] [place] [address] Feb, Chronic pain G89.29 [facility], [place] [address] [facility] [id number] [address] [place] [address] Feb, [facility], [place] [address] [facility] [id number] [address] [place] [address] Feb, [facility], [place] [address] [facility] [id number] [address] [place] [address] Jan, Chronic pain G89.29 [facility], [place] [address] [facility] [id number] [address] [place] [address] Jan, [facility], [place] [address] [facility] [id number] [address] [place] [address] Jan, [facility], [place] [address] [facility] [id number] [address] [place] [address] 14 Jan, 2017 Diabetes mellitus E11.9 ; Hy pothyroid E03.9 ; GERD (gastroesophageal reflux disease) K21.9 ; Insomnia G47.00 ; Functional diarrhea 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 ; Neuropathy G62.9 ; Depression F32.9 ; Chronic pain G89.29 ; Irritable bowel syndrome with diarrhea K58.0 ; Overactive bladder N32.81 ; Mixed hyperlipidemia E78.2 and Bronchitis J40 [facility] [place] [address] [facility] [id number] [address] [place] [address] Dec, [facility], [place] [address] [facility] [id number] [address] [place] [address] Dec, [facility], [place] [address] [facility] [id number] [address] [place] [address] Dec, [facility] [place] [address] [facility] [id number] [address] [place] [address] Dec, [facility], [place] [address] [facility] [id number] [address] [place] [address] Dec, Chronic pain G89.29 [facility], [place] [id number] [place] [address] Dec, [facility], [place] [address] [place] [id number] [address] [place] [address] Dec, [facility], [place] [address] [place] [id number] [address] [place] [address] Dec, Type 2 diabetes mellitus wit h foot ulcer E11.621 [facility], [place] [address] [address] 17 Dec, 2016 Type 2 diabetes mellitus wit h foot ulcer E11.621 [place] [id number] [place] [address] 14 Dec, 2016 HTN (hypertension) I10 ; Dep ression F32.9 ; Type 2 diabetes mellitus with foot ulcer E11.621 ; Functional diarrhea K59.1 ; Irritable bowel syndrome with diarrhea K58.0 ; Chronic pain G89.29 ; Insomnia G47.00 ; Overactive bladder N32.81 ; Mixed hyperlipidemia E78.2 ; Gastroesophageal reflux disease with esophagitis K21.0 and Acquired hypothyroidism E03.9 [facility], [place] [id number] [place] [address] Nov, [place] [address] [address] Oct, [place] [address] [address] Oct, [place] [address] [address] Oct, [place] [address] [address] Sep, Functional diarrhea K59.1 ; HTN (hypertension) I10 ; Diabetes mellitus E11.9 ; Depression F32.9 ; Overactive bladder N32.81 ; Mixed hyperlipidemia E78.2 ; Gastroesophageal reflux disease without esophagitis K21.9 ; Chronic pain G89.29 ; Insomnia G47.00 and Acquired hypothyroidism E03.9 [place] [address] [address] Sep, [place] [address] [address] Aug, Encounter for immunization Z [address] [address] Aug, [place] [address] [address] Jul, [place] [address] [address] Jun, Type 2 diabetes mellitus wit hout complications E11.9 ; HTN (hypertension) I10 ; Hypothyroid E03.9 ; Neuropathy G62.9 ; Depression F32.9 ; Chronic pain G89.29 ; GERD (gastroesophageal reflux disease) K21.9 ; Insomnia G47.00 ; Overactive bladder N32.81 ; Mixed hyperlipidemia E78.2 ; Diarrhea of infectious origin A09 and Environmental allergies Z91.[address] [address] Apr, [place] [id number] [place] [id number] [address] [place] [address] March, Hypothyroidism, unspecified E03.9 and Mixed hyperlipidemia E78.2 [place] [address] [address] March, Diabetes mellitus E11.9 ; HT N (hypertension) I10 ; Hypothyroid E03.9 ; Depression F32.9 ; Overactive bladder N32.81 ; Other chronic pain G89.29 ; Lumbago with sciatica, unspecified side M54.40 ; Environmental allergies Z91.09 and Gastroesophageal reflux disease, esophagitis presence not specified K21.9 [place] [address] [address] March, [place] [address] [address] Jan, HTN (hypertension) I10 ; Hyp othyroid E03.9 ; Neuropathy G62.9 ; Diabetes mellitus E11.9 ; Chronic pain G89.29 ; GERD (gastroesophageal reflux disease) K21.9 ; Overactive bladder N32.81 and Depression F32.9 [place] [address] [address] Dec, Ear pain, left H92.02 ; HTN (hypertension) I10 ; Hypothyroid E03.9 ; Neuropathy G62.9 ; Diabetes mellitus E11.9 ; Depression F32.9 ; GERD (gastroesophageal reflux disease) K21.9 ; Insomnia G47.00 and Overactive bladder N32.81 [place] [address] [place] [id number] [place] [address] Nov, Overactive bladder N32.81 an d Chronic pain G89.29 [place] [address] [address] [place] [id number] [place] [address] Nov, Kidney failure N19 [place] [address] [address] [place] [id number] [place] [address] Nov, [place] [address] [address] Nov, [address] [address] Nov, Diabetes mellitus E11.9 ; De pression F32.9 ; Chronic pain G89.29 ; GERD (gastroesophageal reflux disease) K21.9 ; Insomnia G47.00 ; HTN (hypertension) I10 ; Hypothyroid E03.9 ; COPD (chronic obstructive pulmonary disease) J44.9 ; Bladder incontinence R32 and Incontinence R32 [address] [address] Sep, Type 2 diabetes mellitus wit h foot ulcer E11.621 and Chromosomal abnormality, 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 [address] Sep, [address] [address] Aug, [place] [address] [address] Aug, [address] [address] Aug, HTN (hypertension) I10 ; Enc ounter for immunization Z23 ; Hypothyroid E03.9 ; Neuropathy G62.9 ; Diabetes mellitus E11.9 ; Depression F32.9 ; Chronic pain G89.29 ; GERD (gastroesophageal reflux disease) K21.9 ; Insomnia G47.00 and COPD (chronic obstructive pulmonary disease) J44.9 [place] [address] [address] Jun, [address] [address] Jun, [place] [address] [address] [address] May, Essential hypertension, ivis gn 401.1 ; Unspecified hypothyroidism 244.9 ; Insomnia, unspecified 780.52 ; Shortness of breath 786.05 ; Depression 311 ; COPD (chronic obstructive pulmonary disease) 496 ; GERD (gastroesophageal reflux disease) 530.81 and Diabetes 1.5, 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 [facility] [place] [address] [address] May, [facility] [place] [address] [address] May, [facility] [place] [address] [address] May, Shortness of breath 786.05 ; Essential hypertension, benign 401.1 ; Diabetes mellitus 250.00 ; Hyperlipidemia 272.4 ; Hypothyroid 244.9 ; Insomnia 780.52 and Cough 786.2 [facility] [place] [address] [address] Apr, [facility] [place] [address] [address] March, Shortness of breath 786.05 ; Nausea with vomiting 787.01 ; Essential hypertension, benign 401.1 ; Diabetes mellitus 250.00 ; Hyperlipidemia 272.4 and Hypothyroid 244.9 [facility] [place] [address] [place] [id number] [address] [place] [address] Feb, [facility] [place] [address] [id number] [address] [place] [address] Feb, [facility] [place] [address] [id number] [address] [place] [address] Jan, [facility] [place] [address] [id number] [address] [place] [address] Jan, [facility] [place] [address] [address] Jan, [facility] [place] [address] [id number] [address] [place] [address] Jan, [facility] [place] [address] [place] [address] 05 Jan, 2014 [facility] [address] [id number] [address] [place] [address], [place] [address] Jan, 2014 [facility] [address] [id number] [address] [place] [address], [place] [address] Jan, 2014 [facility] [address] [id number] [address] [place] [address], [place] [address] Jan, 2014 [facility] [address] [id number] [address] [place] [address], [place] [address] Jan, 2014 [facility] [address] [id number] [address] [place] [address], [place] [address] Jan, 2014 [facility] [address] [id number] [address] [place] [address], [place] [address] Dec, 2014 [facility] [address] [id number] [address] [place] [address], [place] [address] Dec, 2014 [facility] [address] [id number] [address] [place] [address], [place] [address] Dec, 2014 [facility] [address] [id number] [address] [place] [address], [place] [address] Dec, 2014 [facility] [address] [id number] [address] [place] [address], [place] [address] Dec, 2014 [facility] [address] [id number] [address] [place] [address], [place] [address] Dec, 2014 [facility] [address] [id number] [address] [place] [address], [place] [address] Dec, 2014 [facility] [address] [id number] [address] [place] [address], [place] [address] Dec, 2014 [facility] [address] [id number] [address] [place] [address], [place] [address] Dec, 2014 [facility] [address] [id number] [address] [place] [address], [place] [address] Dec, [facility] [address] [id number] [facility] [place] [address] Oct, [facility] [address] [id number] [address] [place] [address], [place] [address] Oct, [facility] [address] [id number] [address] [place] [address], [place] [address] Oct, [facility] [address] [id number] [address] [place] [address], [place] [address] Oct, [facility] [address] [id number] [address] [place] [address], [place] [address] Oct, [facility] [address] [id number] [address] [place] [address], [place] [address] Oct, [facility] [address] [id number] [address] [place] [address], [place] [address] Oct, [facility] [address] [id number] [address] [place] [address], [place] [address] Oct, [facility] [address] [id number] [address] [place] [address], [place] [address] Oct, [facility] [address] [id number] [address] [place] [address], [place] [address] Oct, [facility] [address] [id number] [address] [place] [address], [place] [address] Oct, [facility] [address] [id number] [address] [place] [address], [place] [address] Oct, [facility] [address] [id number] [address] [place] [address], [place] [address] Oct, [facility] [address] [id number] [address] [place] [address], [place] [address] Oct, [facility] [address] [id number] [address] [place] [address], [place] [address] Sep, [facility] [address] [id number] [address] [place] [address], [place] [address] Sep, [facility] [address] [id number] [address] [place] [address], [place] [address] Sep, [facility] [address] [id number] [address] [place] [address], [place] [address] Sep, [facility] [address] [id number] [address] [place] [address], [place] [address] Sep, [facility] [address] [id number] [address] [place] [address], [place] [address] Sep, [facility] [address] [id number] [address] [place] [address], [place] [address] Sep, [facility] [address] [id number] [address] [place] [address], [place] [address] Sep, [facility] [address] [id number] [address] [place] [address], [place] [address] Sep, [facility] [address] [id number] [address] [place] [address], [place] [address] Aug, [facility] [address] [id number] [address] [place] [address], [place] [address] Aug, [facility] [address] [id number] [address] [place] [address], [place] [address] Aug, [facility] [address] [id number] [address] [place] [address], [place] [address] Aug, [facility] [address] [id number] [address] [place] [address], [place] [address] 16 Aug, 2014 [facility] [address] [id number] [address] [place] [address], [place] [address] Aug, [facility] [address] [id number] [address] [place] [address], [place] [address] Aug, [facility] [address] [id number] [address] [place] [address], [place] [address] Aug, [facility] [address] [id number] [facility] [place] [address] Aug, [facility] [address] [id number] [address] [place] [address], [place] [address] Jul, [facility] [address] [id number] [address] [place] [address], [place] [address] Jul, [facility] [address] [id number] [address] [place] [address], [place] [address] Jul, [facility] [address] [id number] [address] [place] [address], [place] [address] Jul, [facility] [address] [id number] [address] [place] [address], [place] [address] Jul, [facility] [address] [id number] [address] [place] [address], [place] [address] Jul, [facility] [address] [id number] [address] [place] [address], [place] [address] Jul, [facility] [address] [id number] [address] [place] [address], [place] [address] Jul, [facility] [address] [id number] [address] [place] [address], [place] [address] Jul, [facility] [address] [id number] [address] [place] [address], [place] [address] Jul, [facility] [address] [id number] [address] [place] [address], [place] [address] Jun, [facility] [address] [id number] [address] [place] [address], [place] [address] Jun, [facility] [address] [id number] [address] [place] [address], [place] [address] Jun, [facility] [address] [id number] [address] [place] [address], [place] [address] Jun, [facility] [address] [id number] [address] [place] [address], [place] [address] Jun, [facility] [address] [id number] [facility] [place] [address] Jun, [facility] [address] [id number] [address] [place] [address], [place] [address] Jun, [facility] [address] [id number] [address] [place] [address], [place] [address] Jun, [facility] [address] [id number] [address] [place] [address], [place] [address] Jun, [facility] [address] [id number] [address] [place] [address], [place] [address] Jun, [facility] [address] [id number] [address] [place] [address], [place] [address] Jun, [facility] [address] [id number] [address] [place] [address], [place] [address] Jun, [facility] [address] [id number] [address] [place] [address], [place] [address] May, [facility] [address] [id number] [address] [place] [address], [place] [address] May, [facility] [address] [id number] [address] [place] [address], [place] [address] May, [facility] [address] [id number] [address] [place] [address], [place] [address] May, [facility] [address] [id number] [address] [place] [address], [place] [address] May, [facility] [address] [id number] [address] [place] [address], [place] [address] May, [facility] [address] [id number] [address] [place] [address], [place] [address] March, [facility] [address] [id number] [address] [place] [address], [place] [address] March, [facility] [address] [id number] [facility] [place] [address] March, [facility] [address] [id number] [address] [place] [address], [place] [address] March, [facility] [address] [id number] [address] [place] [address], [place] [address] March, [facility] [address] [id number] [address] [place] [address], [place] [address] March, [facility] [address] [id number] [address] [place] [address], [place] [address] Feb, [facility] [address] [id number] [address] [place] [address], [place] [address] Feb, [facility] [address] [id number] [address] [place] [address], [place] [address] Feb, [facility] [address] [id number] [address] [place] [address], [place] [address] Feb, [facility] [address] [id number] [address] [place] [address], [place] [address] Jan, [facility] [address] [id number] [address] [place] [address], [place] [address] Jan, [facility] [address] [id number] [address] [place] [address], [place] [address] Jan, [facility] [address] [id number] [address] [place] [address], [place] [address] Jan, [facility] [address] [id number] [address] [place] [address], [place] [address] Jan, [facility] [address] [id number] [address] [place] [address], [place] [address] Jan, [facility] [address] [id number] [address] [place] [address], [place] [address] Jan, [facility] [address] [id number] [address] [place] [address], [place] [address] Jan, [facility] [address] [id number] [facility] [place] [address] Jan, [facility] [address] [id number] [address] [place] [address], [place] [address] Jan, [facility] [address] [id number] [facility] [place] [address] Jan, [facility] [address] [id number] [address] [place] [address], [place] [address] Jan, [facility] [address] [id number] [address] [place] [address], [place] [address] Dec, [facility] [address] [id number] [address] [place] [address], [place] [address] Dec, [facility] [address] [id number] [address] [place] [address], [place] [address] Dec, [facility] [address] [id number] [address] [place] [address], [place] [address] Dec, [facility] [address] [id number] [address] [place] [address], [place] [address] Dec, [facility] [address] [id number] [address] [place] [address], [place] [address] Dec, [facility] [address] [id number] [address] [place] [address], [place] [address] Nov, [facility] [address] [id number] [address] [place] [address], [place] [address] Nov, [facility] [address] [id number] [address] [place] [address], [place] [address] Oct, [facility] [address] [id number] [address] [place] [address], [place] [address] Oct, [facility] [address] [id number] [address] [place] [address], [place] [address] Oct, [facility] [address] [id number] [address] [place] [address], [place] [address] Oct, [facility] [address] [id number] [address] [place] [address], [place] [address] Oct, [facility] [address] [id number] [address] [place] [address], [place] [address] Oct, [facility] [address] [id number] [address] [place] [address], [place] [address] Sep, [facility] [address] [id number] [address] [place] [address], [place] [address] Sep, [facility] [address] [id number] [address] [place] [address], [place] [address] Sep, [facility] [address] [id number] [address] [place] [address], [place] [address] Sep, [facility] [address] [id number] [address] [place] [address], [place] [address] Aug, [facility] [address] [id number] [address] [place] [address], [place] [address] Aug, [facility] [address] [id number] [address] [place] [address], [place] [address] Aug, [facility] [address] [id number] [address] [place] [address], [place] [address] 17 Jul, 2013 [facility] [address] [id number] [address] [place] [address], [place] [address] 14 Jul, 2013 [facility] [address] [id number] [address] [place] [address], [place] [address] Jul, [facility] [address] [id number] [address] [place] [address], [place] [address] Jun, [facility] [address] [id number] [address] [place] [address], [place] [address] Jun, [facility] [address] [id number] [address] [place] [address], [place] [address] Jun, [facility] [address] [id number] [address] [place] [address], [place] [address] Apr, [facility] [address] [id number] [address] [place] [address], [place] [address] Apr, [facility] [address] [id number] [address] [place] [address], [place] [address] March, [facility] [address] [id number] [address] [place] [address], [place] [address] March, [facility] [address] [id number] [address] [place] [address], [place] [address] March, [facility] [address] [id number] [address] [place] [address], [place] [address] March, [facility] [address] [id number] [address] [place] [address], [place] [address] Feb, [facility] [address] [id number] [address] [place] [address], [place] [address] Jan, [facility] [address] [id number] [address] [place] [address], [place] [address] Dec, [facility] [address] [id number] [address] [place] [address], [place] [address] Dec, [facility] [address] [id number] [address] [place] [address], [place] [address] Dec, [facility] [address] [id number] [address] [place] [address], [place] [address] Nov, [facility] [address] [id number] [address] [place] [address], [place] [address] Oct, [facility] [address] [id number] [address] [place] [address], [place] [address] Oct, [facility] [address] [id number] [address] [place] [address], [place] [address] Sep, [facility] [address] [id number] [address] [place] [address] Sep, [facility] [address] [id number] [address] [place] [address], [place] [address] Sep, [facility] [address] [id number] [address] [place] [address] Sep, [facility] [address] [id number] [address] [place] [address], [place] [address] Sep, [facility] [address] [id number] [address] [place] [address], [place] [address] Sep, [facility] [address] [id number] [address] [place] [address], [place] [address] Sep, [facility] [address] [id number] [address] [place] [address], [place] [address] Aug, [facility] [address] [id number] [address] [place] [address] Aug, [facility] [address] [id number] [address] [place] [address] Aug, [facility] [address] [id number] [address] [place] [address], [place] [address] Aug, [facility] [address] [id number] [address] [place] [address] Aug, [facility] [address] [id number] [address] [place] [address] Aug, [facility] [address] [id number] [address] [place] [address] Aug, [facility] [address] [id number] [address] [place] [address] Aug, [facility] [address] [id number] [address] [place] [address], [place] [address] Jul, [facility] [address] [id number] [address] [place] [address] 12 Jul, 2012 [facility] [address] [id number] [facility] [place] [address] Jun, [facility] [address] [id number] [address] [place] [address], [place] [address] May, [facility] [address] [id number] [address] [place] [address], [place] [address] Apr, [facility] [address] [id number] [address] [place] [address], [place] [address] Apr, [facility] [address] [id number] [address] [place] [address], [place] [address] Apr, [facility] [address] [id number] [address] [place] [address], [place] [address] March, [facility] [address] [id number] [address] [place] [address], [place] [address] March, [facility] [address] [id number] [address] [place] [address], [place] [address] March, [facility] [address] [id number] [address] [place] [address], [place] [address] March, [facility] [address] [id number] [address] [place] [address], [place] [address] March, [facility] [address] [id number] [address] [place] [address], [place] [address] March, [facility] [address] [id number] [address] [place] [address], [place] [address] March, [facility] [address] [id number] [address] [place] [address], [place] [address] Jan, [facility] [address] [id number] [address] [place] [address], [place] [address] Jan, [facility] [address] [id number] [address] [place] [address], [place] [address] Jan, [facility] [address] [id number] [address] [place] [address], [place] [address] 13 Jan, 2012 [facility] [address] [id number] [address] [place] [address], [place] [address] Jan, [facility] [address] [id number] [address] [place] [address], [place] [address] 08 Dec, 2011 [facility] [address] [id number] [address] [place] [address], [place] [address] Dec, [facility] [address] [id number] [address] [place] [address], [place] [address] Nov, [facility] [address] [id number] [address] [place] [address], [place] [address] Nov, [facility] [address] [id number] [address] [place] [address], [place] [address] Nov, [facility] [address] [id number] [address] [place] [address], [place] [address] Nov, [facility] [address] [id number] [address] [place] [address], [place] [address] Oct, [facility] [address] [id number] [address] [place] [address], [place] [address] Oct, [facility] [address] [id number] [address] [place] [address], [place] [address] Sep, [facility] [address] [id number] [address] [place] [address], [place] [address] Sep, [facility] [address] [id number] [address] [place] [address], [place] [address] Sep, [facility] [address] [id number] [address] [place] [address], [place] [address] May, [facility] [address] [id number] [address] [place] [address], [place] [address] Nov, [facility] [address] [id number] [address] [place] [address], [place] [address] Oct, [facility] [address] [id number] [address] [place] [address], [place] [address] 14 Oct, 2010 [facility] [address] [id number] [address] [place] [address], [place] [address] 08 Oct, 2010 [facility] [address] [id number] [address] [place] [address], [place] [address] 15 Sep, 2010 [facility] [address] [id number] [address] [place] [address], [place] [address] 02 Sep, 2010 [facility] [address] [id number] [address] [place] [address], [place] [address] 20 Aug, 2010 [facility] [address] [id number] [address] [place] [address], [place] [address] March, [facility] [address] [id number] [address] [place] [address], [place] [address] 17 Oct, 2009 [facility] [address] [id number] [address] [place] [address], [place] [address] 17 Oct, 2009 [facility] [address] [id number] [address] [place] [address], [place] [address] 10 Oct, 2009 [facility] [address] [id number] [address] [place] [address], [place] [address] 02 Oct, 2009 [facility] [address] [id number] [address] [place] [address], [place] [address] Sep, [facility] [address] [id number] [address] [place] [address], [place] [address] 12 Sep, 2009 [facility] [address] [id number] [address] [place] [address], [place] [address] 04 Sep, 2009 [facility] [address] [id number] [address] [place] [address], [place] [address] 27 Aug, 2009 [facility] [address] [id number] [address] [place] [address], [place] [address] 24 Aug, 2009 [facility] [address] [id number] [address] [place] [address], [place] [address] Aug, [facility] [place] [address] [facility] [id number] [address] [place] [address] 10 Jan, 2009 IMMUNIZATIONS No Known Immunizations [...]
--- OUTSIDE RECORDS SUMMARY | 2020-06-13 16:41 | XMS REPORT ---
Author Author Jah Durant Doctor Organization [facility] Address Unknown Phone Unavailable Care Team Providers Care Rougher Helper Name Role Phone Migration, Doctor Unavailable Unavailable PROBLEMS Type Condition ICD9-CM Code [id number] Code Onset Dates Condition S tatus SNOMED Code Problem Neuropathy G62.9 Active 289886388 Problem Chronic pain G89.29 Active 3927286 1 Problem Overactive bladder N32.81 Active 2 89711887 Problem Hypothyroid E03.9 Active 23319144 Problem Irritable bowel syndrome with diarrhea K58.0 Active 979954751 Problem FDC current use of insulin Z79.4 Active 864350416 Problem Type 2 diabetes mellitus with hyperglycemia E11.65 Active 36008567 Problem Chronic obstructive pulmonary disease, unspecified COPD ty pe J44.9 Active 70357455 Problem Gastroesophageal reflux disease with esophagitis K 21.0 Active 301235270 Problem Major depressive disorder, recurrent, in full remission F33.42 Active 56133680 Problem Mixed hyperlipidemia E78.2 Active 229407780 Problem Essential (primary) hypertension I10 Active 16067418 Problem Anxiety disorder, unspecified type F41.9 Active 260539367 Problem Gastroparesis K31.84 Active 232138 006 Problem 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 Active 415008201 ALLERGIES No Information ENCOUNTERS Encounter Location Date Diagnosis [facility] [address] [facility] [id number] [address] [place] [address] Jul, Chronic pain G89.29 [facility] [address] [facility] [id number] [address] [place] [address] Jun, Other chronic pain G89.29 [facility] [address] [facility] [id number] [address] [place] [address] Jun, [facility] [address] [facility] [id number] [address] [place] [address] Jun, Chronic pain G89.29 [facility] [address] [place] [id number] [address] [place] [address] Jun, Neuropathy G62.9 [place] [address] [place] [address] Jun, Encounter for Medicare kodi wellness exam Z00.00 ; Type 2 diabetes mellitus with hyperglycemia E11.65 ; Mixed hyperlipidemia E78.2 ; Hypothyroid E03.9 ; Gastroesophageal reflux disease with esophagitis K21.0 ; Essential (primary) hypertension I10 ; Major depressive disorder, recurrent, in full remission F33.42 ; Chronic obstructive pulmonary disease, unspecified COPD type J44.9 ; Neuropathy G62.9 and Encounter for immunization Z23 [place] [address] [address] Jun, Irritable bowel syndrome wit h diarrhea K58.0 [place] [address] [address] May, Chronic pain G89.29 [place] [address] [place] [id number] [address] [place] [address] May, Type 2 diabetes mellitus wit h hyperglycemia E11.65 and Neuropathy G62.9 [place] [address] [place] [id number] [address] [place] [address] May, Chronic pain G89.29 [place] [address] [place] [id number] [address] [place] [address] Apr, Poison maryam dermatitis L23.7 [place] [address] [place] [id number] [address] [place] [address] Apr, Chronic pain G89.29 [place] [address] [facility] [id number] [address] [place] [address] March, Type 2 diabetes mellitus wit h hyperglycemia E11.65 [place] [address] [facility] [id number] [address] [place] [address] March, Chronic pain G89.29 [place] [address] [facility] [id number] [address] [place] [address] March, [facility] [address] [place] [address] Feb, [facility] [address] [facility] [id number] [address] [place] [address] Feb, Other chronic pain G89.29 an d Chronic pain G89.29 [facility] [address] [facility] [id number] [address] [place] [address] Jan, Mixed hyperlipidemia E78.2 [facility] [address] [facility] [id number] [address] [place] [address] Jan, Chronic pain G89.29 [facility] [address] [facility] [id number] [address] [place] [address] Jan, Type 2 diabetes mellitus wit h hyperglycemia E11.65 ; Mixed hyperlipidemia E78.2 ; terminal gauger current use of insulin Z79.4 ; Acquired hypothyroidism E03.9 and Essential (primary) hypertension I10 [facility] [address] [facility] [id number] [address] [place] [address] Dec, Chronic pain G89.29 [facility] [address] [facility] [id number] [address] [place] [address] Nov, Chronic pain G89.29 [facility] [address] [facility] [id number] [address] [place] [address] Nov, [facility] [address] [facility] [id number] [address] [place] [address] Oct, Chronic pain G89.29 [facility] [address] [facility] [id number] [address] [place] [address] Oct, [facility] [address] [facility] [id number] [address] [place] [address] Sep, [facility] [address] [facility] [id number] [address] [place] [address] Sep, Type 2 diabetes mellitus wit h hyperglycemia E11.65 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 and Dermatitis L30.9 [place] [address] [place] [address] Aug, Chronic pain G89.29 [place] [address] [address] Jul, Chronic pain G89.29 [place] [address] [address] Jun, Type 2 diabetes mellitus wit h hyperglycemia E11.65 ; Neuropathy G62.9 ; Recurrent major depressive disorder, in partial remission F33.41 ; Chronic pain G89.29 and Hypertriglyceridemia E78.1 [place] [address] [place] [id number] [address] [place] [address] Jun, Hypothyroid E03.9 [place] [address] [address] Jun, Major depressive disorder, r ecurrent episode, moderate F33.1 and Anxiety disorder, unspecified type F41.9 [place] [address] [place] [address] Jun, [place] [address] [address] Jun, Type 2 diabetes mellitus wit h hyperglycemia E11.65 ; FDC current use of insulin Z79.4 ; Recurrent major depressive disorder, in partial remission F33.41 ; Hypothyroid E03.9 ; Candidal dermatitis B37.2 and Weakness generalized R53.1 [facility] [address] [id number] [address] [place] [address] May, [facility] [address] [facility] [id number] [address] [place] [address] May, [facility] [address] [facility] [id number] [address] [place] [address] May, [facility] [address] [id number] [address] [place] [address] May, Generalized abdominal pain R 10.84 and Candidal dermatitis B37.2 [place] [address] [facility] [id number] [address] [place] [address] May, [place] [address] [facility] [id number] [address] [place] [address] May, [place] [address] [place] [id number] [place] [address] May, Nodular radiologic density R 93.8 ; Weight loss, unintentional R63.4 and Pulmonary emphysema, unspecified emphysema type J43.9 [place] [address] [place] [id number] [address] [place] [address] May, Chronic pain G89.29 [place] [address] [place] [id number] [address] [place] [address] May, Syncope and collapse R55 ; C hronic fatigue R53.[address] lung screening R91.8 [place] [address] [facility] [id number] [address] [place] [address] May, [place] [address] [facility] [id number] [address] [place] [address] Apr, Chronic fatigue R53.82 ; Abn ormal chest CT R93.8 ; Elevated erythrocyte sedimentation rate R70.0 ; Hypothyroid E03.9 and Recurrent major depressive disorder, in partial remission F33.41 [place] [address] [place] [id number] [address] [place] [address] Apr, Hypothyroid E03.9 [facility] [address] [facility] [id number] [address] [place] [address] Apr, Depression F32.9 [facility] [address] [facility] [id number] [address] [place] [address] Apr, [place] [address] [facility] [id number] [address] [place] [address] March, [place] [address] [facility] [id number] [address] [place] [address] March, Hypothyroid E03.9 [place] [address] [facility] [id number] [address] [place] [address] March, Diabetes mellitus E11.9 and Hypothyroid E03.9 [place] [address] [facility] [id number] [address] [place] [address] March, Diabetes mellitus E11.9 [place] [address] [facility] [id number] [address] [place] [address] March, Hypothyroid E03.9 and Elevat ed liver enzymes R74.8 [place] [address] [facility] [id number] [address] [place] [address] March, Type 2 diabetes mellitus wit h [...] disorder, in partial remission F33.41 [place] [address] [facility] [id number] [address] [place] [address] Feb, Chronic pain G89.29 [place] [address] [facility] [id number] [address] [place] [address] Feb, Type 2 diabetes mellitus wit h hyperglycemia E11.65 and Skin lesion of scalp L98.9 [place] [address] [place] [id number] [address] [place] [address] Feb, [place] [address] [place] [id number] [address] [place] [address] Jan, Type 2 diabetes mellitus wit h [...] bowel syndrome with diarrhea K58.0 [place] [address] [place] [id number] [address] [place] [address] Jan, [place] [address] [address] Jan, Controlled substance agreeme nt signed Z79.899 [place] [address] [place] [id number] [address] [place] [address] Dec, Type 2 diabetes mellitus wit h [...] and Overweight (BMI 25.0-29.9) E66.3 [place] [address] [place] [id number] [address] [place] [address] Dec, Controlled substance agreeme nt signed Z79.899 [place] [address] [place] [address] Nov, Type 2 diabetes mellitus wit h hyperglycemia E11.65 and Current non- adherence to medical treatment Z91.19 [facility] [address] [facility] [id number] [address] [place] [address] Nov, [facility] [address] [facility] [id number] [address] [place] [address] Nov, Chronic pain G89.29 [facility] [address] [facility] [id number] [address] [place] [address] Nov, [facility] [address] [facility] [id number] [address] [place] [address] Nov, Hypothyroid E03.9 [place] [address] [facility] [id number] [address] [place] [address] Nov, Hypothyroid E03.9 [place] [address] [facility] [id number] [address] [place] [address] Nov, Pulmonary emphysema, unspeci fied emphysema type J43.9 and Irritable bowel syndrome with diarrhea K58.0 [place] [address] [facility] [id number] [address] [place] [address] Oct, [place] [address] [place] [id number] [address] [place] [address] Oct, [place] [address] [place] [id number] [address] [place] [address] Oct, [place] [address] [place] [id number] [address] [place] [address] Oct, [place] [address] [facility] [id number] [address] [place] [address] Oct, Chronic pain G89.29 [place] [address] [facility] [id number] [address] [place] [address] Oct, Diabetes mellitus E11.9 ; De pression F32.9 ; Mixed hyperlipidemia E78.2 ; Hypotension, unspecified hypotension type I95.9 ; Pulmonary emphysema, unspecified emphysema type J43.9 and Weight loss, unintentional R63.4 [place] [address] [place] [id number] [address] [place] [address] Oct, Chronic pain G89.29 [facility] [address] [address] Sep, Chronic pain G89.29 [place] [address] [place] [id number] [place] [address] Sep, Hypothyroid E03.9 and Diabet es mellitus E11.9 [place] [address] [place] [id number] [address] [place] [address] Aug, Type 2 diabetes mellitus wit h hyperglycemia E11.65 ; terminal gauger current use of insulin Z79.4 ; Essential (primary) hypertension I10 ; Hypothyroid E03.9 ; Neuropathy G62.9 ; Chronic pain G89.29 ; Mixed hy perlipidemia E78.2 and Encounter for immunization Z23 [place] [address] [address] Aug, Chronic pain G89.29 [place] [address] [address] Aug, Overactive bladder N32.81 ; Diabetes mellitus E11.9 and Chronic pain G89.29 [place] [address] [place] [id number] [address] [place] [address] Jul, [place] [address] [place] [id number] [address] [place] [address] Jun, [place] [address] [place] [id number] [address] [place] [address] Jun, [place] [address] [place] [id number] [address] [place] [address] Jun, Hypothyroid E03.9 [facility] [address] [place] [id number] [address] [place] [address] Jun, Diabetes mellitus E11.9 ; Hy pothyroid E03.9 ; Neuropathy G62.9 ; Chronic pain G89.29 and Neck mass R22.1 [facility] [address] [facility] [id number] [address] [place] [address] Apr, [facility] [address] [facility] [id number] [address] [place] [address] Apr, Acute cystitis without hemat uria N30.00 [facility] [address] [facility] [id number] [address] [place] [address] March, [facility] [address] [facility] [id number] [address] [place] [address] March, [facility] [address] [facility] [id number] [address] [place] [address] March, Near syncope R55 [facility] [address] [facility] [id number] [address] [place] [address] Feb, [facility] [address] [facility] [id number] [address] [place] [address] Feb, Chronic pain G89.29 [facility] [address] [facility] [id number] [address] [place] [address] Feb, [facility] [address] [facility] [id number] [address] [place] [address] Feb, [facility] [address] [facility] [id number] [address] [place] [address] Jan, Chronic pain G89.29 [facility] [address] [facility] [id number] [address] [place] [address] Jan, [facility] [address] [facility] [id number] [address] [place] [address] Jan, [facility] [address] [facility] [id number] [address] [place] [address] 14 Jan, 2017 Diabetes mellitus E11.9 ; Hy pothyroid E03.9 ; GERD (gastroesophageal reflux disease) K21.9 ; Insomnia G47.00 ; Functional diarrhea K59.1 ; Neuropathy G62.9 ; Depression F32.9 ; Chronic pain G89.29 ; Irritable bowel syndrome with diarrhea K58.0 ; Overactive bladder N32.81 ; Mixed hyperlipidemia E78.[address] [facility] [address] [facility] [id number] [address] [place] [address] Dec, [facility] [address] [facility] [id number] [address] [place] [address] Dec, [facility] [address] [facility] [id number] [address] [place] [address] Dec, [facility] [address] [facility] [id number] [address] [place] [address] Dec, [facility] [address] [facility] [id number] [address] [place] [address] Dec, Chronic pain G89.29 [facility] [address] [place] [address] Dec, [facility] [address] [place] [id number] [address] [place] [address] Dec, [facility] [address] [place] [id number] [address] [place] [address] Dec, Type 2 diabetes mellitus wit h foot ulcer E11.621 [facility] [address] [address] 17 Dec, 2016 Type 2 diabetes mellitus wit h foot ulcer E11.621 [place] [id number] [place] [address] 14 Dec, 2016 HTN (hypertension) I10 ; Dep ression F32.9 ; Type 2 diabetes mellitus with foot ulcer E11.621 ; Functional diarrhea K59.1 ; Irritable bowel syndrome with diarrhea K58.0 ; Chronic pain G89.29 ; Insomnia G47.00 ; Overactive bladder N32.81 ; Mixed hyperlipidemia E78.2 ; Gastroesophageal reflux disease with esophagitis K21.0 and Acquired hypothyroidism E03.9 [facility] [id number] [place] [address] Nov, [place] [address] [address] Oct, [place] [address] [address] Oct, [place] [address] [address] Oct, [place] [address] [address] Sep, Functional diarrhea K59.1 ; HTN (hypertension) I10 ; Diabetes mellitus E11.9 ; Depression F32.9 ; Overactive bladder N32.81 ; Mixed hyperlipidemia E78.2 ; Gastroesophageal reflux disease without esophagitis K21.9 ; Chronic pain G89.29 ; Insomnia G47.00 and Acquired hypothyroidism E03.9 [place] [address] [address] Sep, [place] [address] [address] Aug, Encounter for immunization Z [address] [address] Aug, [place] [address] [address] Jul, [place] [address] [address] Jun, Type 2 diabetes mellitus wit hout complications E11.9 ; HTN (hypertension) I10 ; Hypothyroid E03.9 ; Neuropathy G62.9 ; Depression F32.9 ; Chronic pain G89.29 ; GERD (gastroesophageal reflux disease) K21.9 ; Insomnia G47.00 ; Overactive bladder N32.81 ; Mixed hyperlipidemia E78.2 ; Diarrhea of infectious origin A09 and Environmental allergies Z91.[address] [address] Apr, [place] [address] [place] [id number] [address] [place] [address] March, Hypothyroidism, unspecified E03.9 and Mixed hyperlipidemia E78.2 [place] [address] [address] March, Diabetes mellitus E11.9 ; HT N (hypertension) I10 ; Hypothyroid E03.9 ; Depression F32.9 ; Overactive bladder N32.81 ; Other chronic pain G89.29 ; Lumbago with sciatica, unspecified side M54.40 ; Environmental allergies Z91.09 and Gastroesophageal reflux disease, esophagitis presence not specified K21.9 [place] [address] [address] March, [place] [address] [address] Jan, HTN (hypertension) I10 ; Hyp othyroid E03.9 ; Neuropathy G62.9 ; Diabetes mellitus E11.9 ; Chronic pain G89.29 ; GERD (gastroesophageal reflux disease) K21.9 ; Overactive bladder N32.81 and Depression F32.9 [place] [address] [address] Dec, Ear pain, left H92.02 ; HTN (hypertension) I10 ; Hypothyroid E03.9 ; Neuropathy G62.9 ; Diabetes mellitus E11.9 ; Depression F32.9 ; GERD (gastroesophageal reflux disease) K21.9 ; Insomnia G47.00 and Overactive bladder N32.81 [place] [address] [place] [id number] [address] [place] [address] Nov, Overactive bladder N32.81 an d Chronic pain G89.29 [place] [address] [place] [id number] [address] [place] [address] Nov, Kidney failure N19 [place] [address] [place] [id number] [address] [place] [address] Nov, [place] [address] [address] Nov, [address] [address] Nov, Diabetes mellitus E11.9 ; De pression F32.9 ; Chronic pain G89.29 ; GERD (gastroesophageal reflux disease) K21.9 ; Insomnia G47.00 ; HTN (hypertension) I10 ; Hypothyroid E03.9 ; COPD (chronic obstructive pulmonary disease) J44.9 ; Bladder incontinence R32 and Incontinence R32 [address] [address] Sep, Type 2 diabetes mellitus wit h foot ulcer E11.621 and Chromosomal abnormality, 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 [address] Sep, [address] [address] Aug, [place] [address] [address] Aug, [address] [address] Aug, HTN (hypertension) I10 ; Enc ounter for immunization Z23 ; Hypothyroid E03.9 ; Neuropathy G62.9 ; Diabetes mellitus E11.9 ; Depression F32.9 ; Chronic pain G89.29 ; GERD (gastroesophageal reflux disease) K21.9 ; Insomnia G47.00 and COPD (chronic obstructive pulmonary disease) J44.9 [place] [address] [address] Jun, [address] [address] Jun, [place] [address] [address] May, Essential hypertension, ivis gn 401.1 ; Unspecified hypothyroidism 244.9 ; Insomnia, unspecified 780.52 ; Shortness of breath 786.05 ; Depression 311 ; COPD (chronic obstructive pulmonary disease) 496 ; GERD (gastroesophageal reflux disease) 530.81 and Diabetes 1.5, 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 [facility] [address] [address] May, [facility] [address] [address] May, [facility] [address] [address] May, Shortness of breath 786.05 ; Essential hypertension, benign 401.1 ; Diabetes mellitus 250.00 ; Hyperlipidemia 272.4 ; Hypothyroid 244.9 ; Insomnia 780.[address] [facility] [address] [id number] Apr, [facility] [address] [address] March, Shortness of breath 786.05 ; Nausea with vomiting 787.01 ; Essential hypertension, benign 401.1 ; Diabetes mellitus 250.00 ; Hyperlipidemia 272.[address] [facility] [address] [place] [id number] [address] [place] [id number] Feb, [facility] [address] [place] [id number] [place] [id number] Feb, [facility] [address] [place] [id number] [address] [place] [id number] Jan, [facility] [address] [place] [id number] [place] [id number] Jan, [facility] [address] [id number] Jan, [facility] [address] [place] [id number] [place] [id number] Jan, [facility] [address] [place] [id number] 05 Jan, 2014 [facility] [address] [id number] [address] [place] [address], [place] [address] Jan, 2014 [facility] [address] [id number] [address] [place] [address], [place] [address] Jan, 2014 [facility] [address] [id number] [address] [place] [address], [place] [address] Jan, 2014 [facility] [address] [id number] [address] [place] [address], [place] [address] Jan, 2014 [facility] [address] [id number] [address] [place] [address], [place] [address] Jan, 2014 [facility] [address] [id number] [address] [place] [address], [place] [address] Dec, 2014 [facility] [address] [id number] [address] [place] [address], [place] [address] Dec, 2014 [facility] [address] [id number] [address] [place] [address], [place] [address] Dec, 2014 [facility] [address] [id number] [address] [place] [address], [place] [address] Dec, 2014 [facility] [address] [id number] [address] [place] [address], [place] [address] Dec, 2014 [facility] [address] [id number] [address] [place] [address], [place] [address] Dec, 2014 [facility] [address] [id number] [address] [place] [address], [place] [address] Dec, 2014 [facility] [address] [id number] [address] [place] [address], [place] [address] Dec, 2014 [facility] [address] [id number] [address] [place] [address], [place] [address] Dec, 2014 [facility] [address] [id number] [address] [place] [address], [place] [address] Dec, [facility] [address] [id number] [facility] [place] [address] Oct, [facility] [address] [id number] [address] [place] [address], [place] [address] Oct, [facility] [address] [id number] [address] [place] [address], [place] [address] Oct, [facility] [address] [id number] [address] [place] [address], [place] [address] Oct, [facility] [address] [id number] [address] [place] [address], [place] [address] Oct, [facility] [address] [id number] [address] [place] [address], [place] [address] Oct, [facility] [address] [id number] [address] [place] [address], [place] [address] Oct, [facility] [address] [id number] [address] [place] [address], [place] [address] Oct, [facility] [address] [id number] [address] [place] [address], [place] [address] Oct, [facility] [address] [id number] [address] [place] [address], [place] [address] Oct, [facility] [address] [id number] [address] [place] [address], [place] [address] Oct, [facility] [address] [id number] [address] [place] [address], [place] [address] Oct, [facility] [address] [id number] [address] [place] [address], [place] [address] Oct, [facility] [address] [id number] [address] [place] [address], [place] [address] Oct, [facility] [address] [id number] [address] [place] [address], [place] [address] Sep, [facility] [address] [id number] [address] [place] [address], [place] [address] Sep, [facility] [address] [id number] [address] [place] [address], [place] [address] Sep, [facility] [address] [id number] [address] [place] [address], [place] [address] Sep, [facility] [address] [id number] [address] [place] [address], [place] [address] Sep, [facility] [address] [id number] [address] [place] [address], [place] [address] Sep, [facility] [address] [id number] [address] [place] [address], [place] [address] Sep, [facility] [address] [id number] [address] [place] [address], [place] [address] Sep, [facility] [address] [id number] [address] [place] [address], [place] [address] Sep, [facility] [address] [id number] [address] [place] [address], [place] [address] Aug, [facility] [address] [id number] [address] [place] [address], [place] [address] Aug, [facility] [address] [id number] [address] [place] [address], [place] [address] Aug, [facility] [address] [id number] [address] [place] [address], [place] [address] Aug, [facility] [address] [id number] [address] [place] [address], [place] [address] 16 Aug, 2014 [facility] [address] [id number] [address] [place] [address], [place] [address] Aug, [facility] [address] [id number] [address] [place] [address], [place] [address] Aug, [facility] [address] [id number] [address] [place] [address], [place] [address] Aug, [facility] [address] [id number] [facility] [place] [address] Aug, [facility] [address] [id number] [address] [place] [address], [place] [address] Jul, [facility] [address] [id number] [address] [place] [address], [place] [address] Jul, [facility] [address] [id number] [address] [place] [address], [place] [address] Jul, [facility] [address] [id number] [address] [place] [address], [place] [address] Jul, [facility] [address] [id number] [address] [place] [address], [place] [address] Jul, [facility] [address] [id number] [address] [place] [address], [place] [address] Jul, [facility] [address] [id number] [address] [place] [address], [place] [address] Jul, [facility] [address] [id number] [address] [place] [address], [place] [address] Jul, [facility] [address] [id number] [address] [place] [address], [place] [address] Jul, [facility] [address] [id number] [address] [place] [address], [place] [address] Jul, [facility] [address] [id number] [address] [place] [address], [place] [address] Jun, [facility] [address] [id number] [address] [place] [address], [place] [address] Jun, [facility] [address] [id number] [address] [place] [address], [place] [address] Jun, [facility] [address] [id number] [address] [place] [address], [place] [address] Jun, [facility] [address] [id number] [address] [place] [address], [place] [address] Jun, [facility] [address] [id number] [facility] [place] [address] Jun, [facility] [address] [id number] [address] [place] [address], [place] [address] Jun, [facility] [address] [id number] [address] [place] [address], [place] [address] Jun, [facility] [address] [id number] [address] [place] [address], [place] [address] Jun, [facility] [address] [id number] [address] [place] [address], [place] [address] Jun, [facility] [address] [id number] [address] [place] [address], [place] [address] Jun, [facility] [address] [id number] [address] [place] [address], [place] [address] Jun, [facility] [address] [id number] [address] [place] [address], [place] [address] May, [facility] [address] [id number] [address] [place] [address], [place] [address] May, [facility] [address] [id number] [address] [place] [address], [place] [address] May, [facility] [address] [id number] [address] [place] [address], [place] [address] May, [facility] [address] [id number] [address] [place] [address], [place] [address] May, [facility] [address] [id number] [address] [place] [address], [place] [address] May, [facility] [address] [id number] [address] [place] [address], [place] [address] March, [facility] [address] [id number] [address] [place] [address], [place] [address] March, [facility] [address] [id number] [facility] [place] [address] March, [facility] [address] [id number] [address] [place] [address], [place] [address] March, [facility] [address] [id number] [address] [place] [address], [place] [address] March, [facility] [address] [id number] [address] [place] [address], [place] [address] March, [facility] [address] [id number] [address] [place] [address], [place] [address] Feb, [facility] [address] [id number] [address] [place] [address], [place] [address] Feb, [facility] [address] [id number] [address] [place] [address], [place] [address] Feb, [facility] [address] [id number] [address] [place] [address], [place] [address] Feb, [facility] [address] [id number] [address] [place] [address], [place] [address] Jan, [facility] [address] [id number] [address] [place] [address], [place] [address] Jan, [facility] [address] [id number] [address] [place] [address], [place] [address] Jan, [facility] [address] [id number] [address] [place] [address], [place] [address] Jan, [facility] [address] [id number] [address] [place] [address], [place] [address] Jan, [facility] [address] [id number] [address] [place] [address], [place] [address] Jan, [facility] [address] [id number] [address] [place] [address], [place] [address] Jan, [facility] [address] [id number] [address] [place] [address], [place] [address] Jan, [facility] [address] [id number] [facility] [place] [address] Jan, [facility] [address] [id number] [address] [place] [address], [place] [address] Jan, [facility] [address] [id number] [facility] [place] [address] Jan, [facility] [address] [id number] [address] [place] [address], [place] [address] Jan, [facility] [address] [id number] [address] [place] [address], [place] [address] Dec, [facility] [address] [id number] [address] [place] [address], [place] [address] Dec, [facility] [address] [id number] [address] [place] [address], [place] [address] Dec, [facility] [address] [id number] [address] [place] [address], [place] [address] Dec, [facility] [address] [id number] [address] [place] [address], [place] [address] Dec, [facility] [address] [id number] [address] [place] [address], [place] [address] Dec, [facility] [address] [id number] [address] [place] [address], [place] [address] Nov, [facility] [address] [id number] [address] [place] [address], [place] [address] Nov, [facility] [address] [id number] [address] [place] [address], [place] [address] Oct, [facility] [address] [id number] [address] [place] [address], [place] [address] Oct, [facility] [address] [id number] [address] [place] [address], [place] [address] Oct, [facility] [address] [id number] [address] [place] [address], [place] [address] Oct, [facility] [address] [id number] [address] [place] [address], [place] [address] Oct, [facility] [address] [id number] [address] [place] [address], [place] [address] Oct, [facility] [address] [id number] [address] [place] [address], [place] [address] Sep, [facility] [address] [id number] [address] [place] [address], [place] [address] Sep, [facility] [address] [id number] [address] [place] [address], [place] [address] Sep, [facility] [address] [id number] [address] [place] [address], [place] [address] Sep, [facility] [address] [id number] [address] [place] [address], [place] [address] Aug, [facility] [address] [id number] [address] [place] [address], [place] [address] Aug, [facility] [address] [id number] [address] [place] [address], [place] [address] Aug, [facility] [address] [id number] [address] [place] [address], [place] [address] 17 Jul, 2013 [facility] [address] [id number] [address] [place] [address], [place] [address] 14 Jul, 2013 [facility] [address] [id number] [address] [place] [address], [place] [address] Jul, [facility] [address] [id number] [address] [place] [address], [place] [address] Jun, [facility] [address] [id number] [address] [place] [address], [place] [address] Jun, [facility] [address] [id number] [address] [place] [address], [place] [address] Jun, [facility] [address] [id number] [address] [place] [address], [place] [address] Apr, [facility] [address] [id number] [address] [place] [address], [place] [address] Apr, [facility] [address] [id number] [address] [place] [address], [place] [address] March, [facility] [address] [id number] [address] [place] [address], [place] [address] March, [facility] [address] [id number] [address] [place] [address], [place] [address] March, [facility] [address] [id number] [address] [place] [address], [place] [address] March, [facility] [address] [id number] [address] [place] [address], [place] [address] Feb, [facility] [address] [id number] [address] [place] [address], [place] [address] Jan, [facility] [address] [id number] [address] [place] [address], [place] [address] Dec, [facility] [address] [id number] [address] [place] [address], [place] [address] Dec, [facility] [address] [id number] [address] [place] [address], [place] [address] Dec, [facility] [address] [id number] [address] [place] [address], [place] [address] Nov, [facility] [address] [id number] [address] [place] [address], [place] [address] Oct, [facility] [address] [id number] [address] [place] [address], [place] [address] Oct, [facility] [address] [id number] [address] [place] [address], [place] [address] Sep, [facility] [address] [id number] [address] [place] [address] Sep, [facility] [address] [id number] [address] [place] [address], [place] [address] Sep, [facility] [address] [id number] [address] [place] [address] Sep, [facility] [address] [id number] [address] [place] [address], [place] [address] Sep, [facility] [address] [id number] [address] [place] [address], [place] [address] Sep, [facility] [address] [id number] [address] [place] [address], [place] [address] Sep, [facility] [address] [id number] [address] [place] [address], [place] [address] Aug, [facility] [address] [id number] [address] [place] [address] Aug, [facility] [address] [id number] [address] [place] [address] Aug, [facility] [address] [id number] [address] [place] [address], [place] [address] Aug, [facility] [address] [id number] [address] [place] [address] Aug, [facility] [address] [id number] [address] [place] [address] Aug, [facility] [address] [id number] [address] [place] [address] Aug, [facility] [address] [id number] [address] [place] [address] Aug, [facility] [address] [id number] [address] [place] [address], [place] [address] Jul, [facility] [address] [id number] [address] [place] [address] 12 Jul, 2012 [facility] [address] [id number] [facility] [place] [address] Jun, [facility] [address] [id number] [address] [place] [address], [place] [address] May, [facility] [address] [id number] [address] [place] [address], [place] [address] Apr, [facility] [address] [id number] [address] [place] [address], [place] [address] Apr, [facility] [address] [id number] [address] [place] [address], [place] [address] Apr, [facility] [address] [id number] [address] [place] [address], [place] [address] March, [facility] [address] [id number] [address] [place] [address], [place] [address] March, [facility] [address] [id number] [address] [place] [address], [place] [address] March, [facility] [address] [id number] [address] [place] [address], [place] [address] March, [facility] [address] [id number] [address] [place] [address], [place] [address] March, [facility] [address] [id number] [address] [place] [address], [place] [address] March, [facility] [address] [id number] [address] [place] [address], [place] [address] March, [facility] [address] [id number] [address] [place] [address], [place] [address] Jan, [facility] [address] [id number] [address] [place] [address], [place] [address] Jan, [facility] [address] [id number] [address] [place] [address], [place] [address] Jan, [facility] [address] [id number] [address] [place] [address], [place] [address] 13 Jan, 2012 [facility] [address] [id number] [address] [place] [address], [place] [address] Jan, [facility] [address] [id number] [address] [place] [address], [place] [address] 08 Dec, 2011 [facility] [address] [id number] [address] [place] [address], [place] [address] Dec, [facility] [address] [id number] [address] [place] [address], [place] [address] Nov, [facility] [address] [id number] [address] [place] [address], [place] [address] Nov, [facility] [address] [id number] [address] [place] [address], [place] [address] Nov, [facility] [address] [id number] [address] [place] [address], [place] [address] Nov, [facility] [address] [id number] [address] [place] [address], [place] [address] Oct, [facility] [address] [id number] [address] [place] [address], [place] [address] Oct, [facility] [address] [id number] [address] [place] [address], [place] [address] Sep, [facility] [address] [id number] [address] [place] [address], [place] [address] Sep, [facility] [address] [id number] [address] [place] [address], [place] [address] Sep, [facility] [address] [id number] [address] [place] [address], [place] [address] May, [facility] [address] [id number] [address] [place] [address], [place] [address] Nov, [facility] [address] [id number] [address] [place] [address], [place] [address] Oct, [facility] [address] [id number] [address] [place] [address], [place] [address] 14 Oct, 2010 [facility] [address] [id number] [address] [place] [address], [place] [address] 08 Oct, 2010 [facility] [address] [id number] [address] [place] [address], [place] [address] 15 Sep, 2010 [facility] [address] [id number] [address] [place] [address], [place] [address] 02 Sep, 2010 [facility] [address] [id number] [address] [place] [address], [place] [address] 20 Aug, 2010 [facility] [address] [id number] [address] [place] [address], [place] [address] March, [facility] [address] [id number] [address] [place] [address], [place] [address] 17 Oct, 2009 [facility] [address] [id number] [address] [place] [address], [place] [address] 17 Oct, 2009 [facility] [address] [id number] [address] [place] [address], [place] [address] 10 Oct, 2009 [facility] [address] [id number] [address] [place] [address], [place] [address] 02 Oct, 2009 [facility] [address] [id number] [address] [place] [address], [place] [address] Sep, [facility] [address] [id number] [address] [place] [address], [place] [address] 12 Sep, 2009 [facility] [address] [id number] [address] [place] [address], [place] [address] 04 Sep, 2009 [facility] [address] [id number] [address] [place] [address], [place] [address] 27 Aug, 2009 [facility] [address] [id number] [address] [place] [address], [place] [address] 24 Aug, 2009 [facility] [address] [id number] [address] [place] [address], [place] [address] Aug, [facility] [address] [facility] [id number] [address] [place] [address] 10 Jan, 2009 IMMUNIZATIONS No Known Immunizations [...]
--- OUTSIDE RECORDS SUMMARY | 2020-06-13 16:42 | XMS REPORT ---
Author Author Jah Durant Doctor Organization [facility] Address Unknown Phone Unavailable Care Team Providers Care Vp Platforms Name Role Phone Migration, Doctor Unavailable Unavailable PROBLEMS Type Condition ICD9-CM Code [id number] Code Onset Dates Condition S tatus SNOMED Code Problem Neuropathy G62.9 Active 527418844 Problem Chronic pain G89.29 Active 6972101 1 Problem Overactive bladder N32.81 Active 2 67719361 Problem Hypothyroid E03.9 Active 27717858 Problem Irritable bowel syndrome with diarrhea K58.0 Active 570349786 Problem senior living current use of insulin Z79.4 Active 556745244 Problem Type 2 diabetes mellitus with hyperglycemia E11.65 Active 35270979 Problem Chronic obstructive pulmonary disease, unspecified COPD ty pe J44.9 Active 35200594 Problem Gastroesophageal reflux disease with esophagitis K 21.0 Active 568599782 Problem Major depressive disorder, recurrent, in full remission F33.42 Active 67896924 Problem Mixed hyperlipidemia E78.2 Active 663764816 Problem Essential (primary) hypertension I10 Active 10103769 Problem Anxiety disorder, unspecified type F41.9 Active 798342883 Problem Gastroparesis K31.84 Active 359711 006 Problem 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 Active [id number] ALLERGIES No Information ENCOUNTERS Encounter Location Date Diagnosis [facility] [address] [facility] [id number] [address] [place] [id number] Jul, Chronic pain G89.29 [facility] [address] [facility] [id number] [address] [place] [address] Jun, Other chronic pain G89.29 [facility] [address] [facility] [id number] [address] [place] [address] Jun, [facility] [address] [facility] [id number] [address] [place] [address] Jun, Chronic pain G89.29 [facility] [address] [place] [id number] [address] [place] [address] Jun, Neuropathy G62.9 [place] [address] [place] [address] Jun, Encounter for Medicare kodi wellness exam Z00.00 ; Type 2 diabetes mellitus with hyperglycemia E11.65 ; Mixed hyperlipidemia E78.2 ; Hypothyroid E03.9 ; Gastroesophageal reflux disease with esophagitis K21.0 ; Essential (primary) hypertension I10 ; Major depressive disorder, recurrent, in full remission F33.42 ; Chronic obstructive pulmonary disease, unspecified COPD type J44.9 ; Neuropathy G62.9 and Encounter for immunization Z23 [place] [address] [address] Jun, Irritable bowel syndrome wit h diarrhea K58.0 [place] [address] [address] May, Chronic pain G89.29 [place] [address] [place] [id number] [address] [place] [address] May, Type 2 diabetes mellitus wit h hyperglycemia E11.65 and Neuropathy G62.9 [place] [address] [place] [id number] [address] [place] [address] May, Chronic pain G89.29 [place] [address] [place] [id number] [address] [place] [address] Apr, Poison maryam dermatitis L23.7 [place] [address] [place] [id number] [address] [place] [address] Apr, Chronic pain G89.29 [place] [address] [facility] [id number] [address] [place] [address] March, Type 2 diabetes mellitus wit h hyperglycemia E11.65 [place] [address] [facility] [id number] [address] [place] [address] March, Chronic pain G89.29 [place] [address] [facility] [id number] [address] [place] [address] March, [facility] [place] [address] [place] [address] Feb, [facility] [address] [facility] [id number] [address] [place] [address] Feb, Other chronic pain G89.29 an d Chronic pain G89.29 [facility] [address] [facility] [id number] [address] [place] [address] Jan, Mixed hyperlipidemia E78.2 [facility] [address] [facility] [id number] [address] [place] [address] Jan, Chronic pain G89.29 [facility] [address] [facility] [id number] [address] [place] [address] Jan, Type 2 diabetes mellitus wit h hyperglycemia E11.65 ; Mixed hyperlipidemia E78.2 ; 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 ; Acquired hypothyroidism E03.9 and Essential (primary) hypertension I10 [facility] [address] [facility] [id number] [address] [place] [address] Dec, Chronic pain G89.29 [facility] [address] [facility] [id number] [address] [place] [address] Nov, Chronic pain G89.29 [facility] [address] [facility] [id number] [address] [place] [id number] Nov, [facility] [address] [facility] [id number] [address] [place] [address] Oct, Chronic pain G89.29 [facility] [address] [facility] [id number] [address] [place] [phone] Oct, [facility] [address] [facility] [id number] [address] [place] [address] Sep, [facility] [address] [facility] [id number] [address] [place] [address] Sep, Type 2 diabetes mellitus wit h hyperglycemia E11.65 [facility] [address] [place] [address] Sep, Chronic pain G89.29 [place] [address] [address] Sep, [place] [address] [place] [id number] [address] [place] [address] Sep, Type 2 diabetes mellitus wit h hyperglycemia E11.65 ; Irritable bowel syndrome with diarrhea K58.0 ; Gastroparesis K31.84 ; 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 and Dermatitis L30.9 [place] [address] [place] [address] Aug, Chronic pain G89.29 [place] [address] [address] Jul, Chronic pain G89.29 [place] [address] [address] Jun, Type 2 diabetes mellitus wit h hyperglycemia E11.65 ; Neuropathy G62.9 ; Recurrent major depressive disorder, in partial remission F33.41 ; Chronic pain G89.29 and Hypertriglyceridemia E78.1 [place] [address] [place] [id number] [address] [place] [address] Jun, Hypothyroid E03.9 [place] [address] [address] Jun, Major depressive disorder, r ecurrent episode, moderate F33.1 and Anxiety disorder, unspecified type F41.9 [place] [address] [place] [address] Jun, [place] [address] [address] Jun, Type 2 diabetes mellitus wit h hyperglycemia E11.65 ; senior living current use of insulin Z79.4 ; Recurrent major depressive disorder, in partial remission F33.41 ; Hypothyroid E03.9 ; Candidal dermatitis B37.2 and Weakness generalized R53.1 [facility] [address] [id number] [address] [place] [address] May, [facility] [address] [facility] [id number] [address] [place] [address] May, [facility] [address] [facility] [id number] [address] [place] [address] May, [facility] [address] [id number] [address] [place] [address] May, Generalized abdominal pain R 10.84 and Candidal dermatitis B37.2 [place] [address] [facility] [id number] [address] [place] [address] May, [place] [address] [facility] [id number] [address] [place] [address] May, [place] [address] [place] [id number] [place] [address] May, Nodular radiologic density R 93.8 ; Weight loss, unintentional R63.4 and Pulmonary emphysema, unspecified emphysema type J43.9 [place] [address] [place] [id number] [place] [address] May, Chronic pain G89.29 [place] [address] [place] [id number] [place] [address] May, Syncope and collapse R55 ; C hronic fatigue R53.[address] lung screening R91.8 [place] [address] [facility] [id number] [address] [place] [address] May, [place] [address] [facility] [id number] [address] [place] [address] Apr, Chronic fatigue R53.82 ; Abn ormal chest CT R93.8 ; Elevated erythrocyte sedimentation rate R70.0 ; Hypothyroid E03.9 and Recurrent major depressive disorder, in partial remission F33.41 [place] [address] [place] [id number] [place] [address] Apr, Hypothyroid E03.9 [facility] [address] [facility] [id number] [address] [place] [address] Apr, Depression F32.9 [facility] [address] [facility] [id number] [address] [place] [address] Apr, [place] [address] [facility] [id number] [address] [place] [address] March, [place] [address] [facility] [id number] [address] [place] [address] March, Hypothyroid E03.9 [place] [address] [facility] [id number] [address] [place] [address] March, Diabetes mellitus E11.9 and Hypothyroid E03.9 [place] [address] [facility] [id number] [address] [place] [address] March, Diabetes mellitus E11.9 [place] [address] [facility] [id number] [address] [place] [address] March, Hypothyroid E03.9 and Elevat ed liver enzymes R74.8 [place] [address] [facility] [id number] [address] [place] [address] March, Type 2 diabetes mellitus wit h [...] major depressive disorder, in partial remission F33.41 [place] [address] [facility] [id number] [address] [place] [address] Feb, Chronic pain G89.29 [place] [address] [facility] [id number] [address] [place] [address] Feb, Type 2 diabetes mellitus wit h hyperglycemia E11.65 and Skin lesion of scalp L98.9 [place] [address] [place] [id number] [place] [address] Feb, [place] [address] [place] [id number] [address] [place] [address] Jan, Type 2 diabetes mellitus wit h hyperglycemia E11.65 ; 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 ; Essential (primary) hypertension I10 ; Pulmonary emphysema, unspecified emphysema type J43.9 ; Chronic pain G89.29 ; Controlled substance agreement signed Z79.899 ; Hypothyroid E03.9 ; Neuropathy G62.9 ; Gastroesophageal reflux disease with esophagitis K21.0 ; Overactive bladder N32.81 ; Depression F32.9 and Irritable bowel syndrome with diarrhea K58.0 [place] [address] [place] [id number] [address] [place] [address] Jan, [place] [address] [address] Jan, Controlled substance agreeme nt signed Z79.899 [place] [address] [place] [id number] [address] [place] [address] Dec, Type 2 diabetes mellitus wit h [...] treatment Z91.19 and Overweight (BMI 25.0-29.9) E66.3 [place] [address] [place] [id number] [address] [place] [address] Dec, Controlled substance agreeme nt signed Z79.899 [place] [address] [place] [address] Nov, Type 2 diabetes mellitus wit h hyperglycemia E11.65 and Current non- adherence to medical treatment Z91.19 [facility] [address] [facility] [id number] [address] [place] [address] Nov, [facility] [address] [facility] [id number] [address] [place] [address] Nov, Chronic pain G89.29 [facility] [address] [facility] [id number] [address] [place] [address] Nov, [facility] [address] [facility] [id number] [address] [place] [address] Nov, Hypothyroid E03.9 [place] [address] [facility] [id number] [address] [place] [id number] Nov, Hypothyroid E03.9 [place] [address] [facility] [id number] [address] [place] [address] Nov, Pulmonary emphysema, unspeci fied emphysema type J43.9 and Irritable bowel syndrome with diarrhea K58.0 [place] [address] [facility] [id number] [address] [place] [address] Oct, [place] [address] [place] [id number] [place] [address] Oct, [place] [address] [place] [id number] [place] [address] Oct, [place] [address] [place] [id number] [place] [address] Oct, [place] [address] [facility] [id number] [address] [place] [address] Oct, Chronic pain G89.29 [place] [address] [facility] [id number] [address] [place] [address] Oct, Diabetes mellitus E11.9 ; De pression F32.9 ; Mixed hyperlipidemia E78.2 ; Hypotension, unspecified hypotension type I95.9 ; Pulmonary emphysema, unspecified emphysema type J43.9 and Weight loss, unintentional R63.4 [place] [address] [place] [id number] [place] [address] Oct, Chronic pain G89.29 [facility] [address] [address] Sep, Chronic pain G89.29 [place] [address] [place] [id number] [place] [address] Sep, Hypothyroid E03.9 and Diabet es mellitus E11.9 [place] [address] [place] [id number] [place] [address] Aug, Type 2 diabetes mellitus wit h hyperglycemia E11.65 ; 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 ; Essential (primary) hypertension I10 ; Hypothyroid E03.9 ; Neuropathy G62.9 ; Chronic pain G89.29 ; Mixed hy perlipidemia E78.2 and Encounter for immunization Z23 [place] [address] [address] Aug, Chronic pain G89.29 [place] [address] [address] Aug, Overactive bladder N32.81 ; Diabetes mellitus E11.9 and Chronic pain G89.29 [place] [address] [place] [id number] [place] [address] Jul, [place] [address] [place] [id number] [address] [place] [address] Jun, [place] [address] [place] [id number] [place] [address] Jun, [place] [address] [place] [id number] [place] [address] Jun, Hypothyroid E03.9 [facility] [address] [place] [id number] [place] [address] Jun, Diabetes mellitus E11.9 ; Hy pothyroid E03.9 ; Neuropathy G62.9 ; Chronic pain G89.29 and Neck mass R22.1 [facility] [address] [facility] [id number] [address] [place] [address] Apr, [facility] [address] [facility] [id number] [address] [place] [address] Apr, Acute cystitis without hemat uria N30.00 [facility] [address] [facility] [id number] [address] [place] [address] March, [facility] [address] [facility] [id number] [address] [place] [id number] March, [facility] [address] [facility] [id number] [address] [place] [address] March, Near syncope R55 [facility] [address] [facility] [id number] [address] [place] [address] Feb, [facility] [address] [facility] [id number] [address] [place] [address] Feb, Chronic pain G89.29 [facility] [address] [facility] [id number] [address] [place] [address] Feb, [facility] [address] [facility] [id number] [address] [place] [address] Feb, [facility] [address] [facility] [id number] [address] [place] [address] Jan, Chronic pain G89.29 [facility] [address] [facility] [id number] [address] [place] [address] Jan, [facility] [address] [facility] [id number] [address] [place] [address] Jan, [facility] [address] [facility] [id number] [address] [place] [address] 14 Jan, 2017 Diabetes mellitus E11.9 ; Hy pothyroid E03.9 ; GERD (gastroesophageal reflux disease) K21.9 ; Insomnia G47.00 ; Functional diarrhea K59.1 ; Neuropathy G62.9 ; Depression F32.9 ; Chronic pain G89.29 ; Irritable bowel syndrome with diarrhea K58.0 ; Overactive bladder N32.81 ; Mixed hyperlipidemia E78.2 and Bronchitis J40 [facility] [address] [facility] [id number] [address] [place] [address] Dec, [facility] [address] [facility] [id number] [address] [place] [address] Dec, [facility] [address] [facility] [id number] [address] [place] [address] Dec, [facility] [address] [facility] [id number] [address] [place] [address] Dec, [facility] [address] [facility] [id number] [address] [place] [address] Dec, Chronic pain G89.29 [facility] [address] [place] [address] Dec, [facility] [address] [place] [id number] [address] [place] [address] Dec, [facility] [address] [place] [id number] [address] [place] [address] Dec, Type 2 diabetes mellitus wit h foot ulcer E11.621 [facility] [address] [address] 17 Dec, 2016 Type 2 diabetes mellitus wit h foot ulcer E11.621 [place] [address] [place] [address] 14 Dec, 2016 HTN (hypertension) I10 ; Dep ression F32.9 ; Type 2 diabetes mellitus with foot ulcer E11.621 ; Functional diarrhea K59.1 ; Irritable bowel syndrome with diarrhea K58.0 ; Chronic pain G89.29 ; Insomnia G47.00 ; Overactive bladder N32.81 ; Mixed hyperlipidemia E78.2 ; Gastroesophageal reflux disease with esophagitis K21.0 and Acquired hypothyroidism E03.9 [facility] [id number] [place] [address] Nov, [place] [address] [address] Oct, [place] [address] [address] Oct, [place] [address] [address] Oct, [place] [address] [address] Sep, Functional diarrhea K59.1 ; HTN (hypertension) I10 ; Diabetes mellitus E11.9 ; Depression F32.9 ; Overactive bladder N32.81 ; Mixed hyperlipidemia E78.2 ; Gastroesophageal reflux disease without esophagitis K21.9 ; Chronic pain G89.29 ; Insomnia G47.00 and Acquired hypothyroidism E03.9 [place] [address] [address] Sep, [place] [address] [address] Aug, Encounter for immunization Z [address] [address] Aug, [place] [address] [address] Jul, [place] [address] [address] Jun, Type 2 diabetes mellitus wit hout complications E11.9 ; HTN (hypertension) I10 ; Hypothyroid E03.9 ; Neuropathy G62.9 ; Depression F32.9 ; Chronic pain G89.29 ; GERD (gastroesophageal reflux disease) K21.9 ; Insomnia G47.00 ; Overactive bladder N32.81 ; Mixed hyperlipidemia E78.2 ; Diarrhea of infectious origin A09 and Environmental allergies Z91.[address] [address] Apr, [place] [address] [place] [id number] [address] [place] [address] March, Hypothyroidism, unspecified E03.9 and Mixed hyperlipidemia E78.2 [place] [address] [address] March, Diabetes mellitus E11.9 ; HT N (hypertension) I10 ; Hypothyroid E03.9 ; Depression F32.9 ; Overactive bladder N32.81 ; Other chronic pain G89.29 ; Lumbago with sciatica, unspecified side M54.40 ; Environmental allergies Z91.09 and Gastroesophageal reflux disease, esophagitis presence not specified K21.9 [place] [address] [address] March, [place] [address] [address] Jan, HTN (hypertension) I10 ; Hyp othyroid E03.9 ; Neuropathy G62.9 ; Diabetes mellitus E11.9 ; Chronic pain G89.29 ; GERD (gastroesophageal reflux disease) K21.9 ; Overactive bladder N32.81 and Depression F32.9 [place] [address] [address] Dec, Ear pain, left H92.02 ; HTN (hypertension) I10 ; Hypothyroid E03.9 ; Neuropathy G62.9 ; Diabetes mellitus E11.9 ; Depression F32.9 ; GERD (gastroesophageal reflux disease) K21.9 ; Insomnia G47.00 and Overactive bladder N32.81 [place] [address] [place] [id number] [address] [place] [address] Nov, Overactive bladder N32.81 an d Chronic pain G89.29 [place] [address] [place] [id number] [address] [place] [address] Nov, Kidney failure N19 [place] [address] [place] [id number] [address] [place] [id number] Nov, [place] [address] [address] Nov, [address] [address] Nov, Diabetes mellitus E11.9 ; De pression F32.9 ; Chronic pain G89.29 ; GERD (gastroesophageal reflux disease) K21.9 ; Insomnia G47.00 ; HTN (hypertension) I10 ; Hypothyroid E03.9 ; COPD (chronic obstructive pulmonary disease) J44.9 ; Bladder incontinence R32 and Incontinence R32 [address] [address] Sep, Type 2 diabetes mellitus wit h foot ulcer E11.621 and Chromosomal abnormality, 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 [address] Sep, [address] [address] Aug, [place] [address] [address] Aug, [address] [address] Aug, HTN (hypertension) I10 ; Enc ounter for immunization Z23 ; Hypothyroid E03.9 ; Neuropathy G62.9 ; Diabetes mellitus E11.9 ; Depression F32.9 ; Chronic pain G89.29 ; GERD (gastroesophageal reflux disease) K21.9 ; Insomnia G47.00 and COPD (chronic obstructive pulmonary disease) J44.9 [place] [address] [address] Jun, [address] [address] Jun, [place] [address] [address] May, Essential hypertension, ivis gn 401.1 ; Unspecified hypothyroidism 244.9 ; Insomnia, unspecified 780.52 ; Shortness of breath 786.05 ; Depression 311 ; COPD (chronic obstructive pulmonary disease) 496 ; GERD (gastroesophageal reflux disease) 530.81 and Diabetes 1.5, 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 [facility] [address] [address] May, [facility] [address] [address] May, [facility] [address] [address] May, Shortness of breath 786.05 ; Essential hypertension, benign 401.1 ; Diabetes mellitus 250.00 ; Hyperlipidemia 272.4 ; Hypothyroid 244.9 ; Insomnia 780.52 and Cough 786.2 [facility] [address] [address] Apr, [facility] [address] [address] March, Shortness of breath 786.05 ; Nausea with vomiting 787.01 ; Essential hypertension, benign 401.1 ; Diabetes mellitus 250.00 ; Hyperlipidemia 272.4 and Hypothyroid 244.9 [facility] [address] [id number] [address] [place] [id number] Feb, [facility] [address] [id number] [address] [place] [id number] Feb, [facility] [address] [id number] [address] [place] [id number] Jan, [facility] [address] [id number] [address] [place] [id number] Jan, [facility] [address] [id number] Jan, [facility] [address] [id number] [address] [place] [id number] Jan, [facility] [address] [place] [address] 05 Jan, 2014 [facility] [address] [id number] [address] [place] [address], [place] [address] Jan, 2014 [facility] [address] [id number] [address] [place] [address], [place] [address] Jan, 2014 [facility] [address] [id number] [address] [place] [address], [place] [address] Jan, 2014 [facility] [address] [id number] [address] [place] [address], [place] [address] Jan, 2014 [facility] [address] [id number] [address] [place] [address], [place] [address] Jan, 2014 [facility] [address] [id number] [address] [place] [address], [place] [address] Dec, 2014 [facility] [address] [id number] [address] [place] [address], [place] [address] Dec, 2014 [facility] [address] [id number] [address] [place] [address], [place] [address] Dec, 2014 [facility] [address] [id number] [address] [place] [address], [place] [address] Dec, 2014 [facility] [address] [id number] [address] [place] [address], [place] [address] Dec, 2014 [facility] [address] [id number] [address] [place] [address], [place] [address] Dec, 2014 [facility] [address] [id number] [address] [place] [address], [place] [address] Dec, 2014 [facility] [address] [id number] [address] [place] [address], [place] [address] Dec, 2014 [facility] [address] [id number] [address] [place] [address], [place] [address] Dec, 2014 [facility] [address] [id number] [address] [place] [address], [place] [address] Dec, [facility] [address] [id number] [facility] [place] [address] Oct, [facility] [address] [id number] [address] [place] [address], [place] [address] Oct, [facility] [address] [id number] [address] [place] [address], [place] [address] Oct, [facility] [address] [id number] [address] [place] [address], [place] [address] Oct, [facility] [address] [id number] [address] [place] [address], [place] [address] Oct, [facility] [address] [id number] [address] [place] [address], [place] [address] Oct, [facility] [address] [id number] [address] [place] [address], [place] [address] Oct, [facility] [address] [id number] [address] [place] [address], [place] [address] Oct, [facility] [address] [id number] [address] [place] [address], [place] [address] Oct, [facility] [address] [id number] [address] [place] [address], [place] [address] Oct, [facility] [address] [id number] [address] [place] [address], [place] [address] Oct, [facility] [address] [id number] [address] [place] [address], [place] [address] Oct, [facility] [address] [id number] [address] [place] [address], [place] [address] Oct, [facility] [address] [id number] [address] [place] [address], [place] [address] Oct, [facility] [address] [id number] [address] [place] [address], [place] [address] Sep, [facility] [address] [id number] [address] [place] [address], [place] [address] Sep, [facility] [address] [id number] [address] [place] [address], [place] [address] Sep, [facility] [address] [id number] [address] [place] [address], [place] [address] Sep, [facility] [address] [id number] [address] [place] [address], [place] [address] Sep, [facility] [address] [id number] [address] [place] [address], [place] [address] Sep, [facility] [address] [id number] [address] [place] [address], [place] [address] Sep, [facility] [address] [id number] [address] [place] [address], [place] [address] Sep, [facility] [address] [id number] [address] [place] [address], [place] [address] Sep, [facility] [address] [id number] [address] [place] [address], [place] [address] Aug, [facility] [address] [id number] [address] [place] [address], [place] [address] Aug, [facility] [address] [id number] [address] [place] [address], [place] [address] Aug, [facility] [address] [id number] [address] [place] [address], [place] [address] Aug, [facility] [address] [id number] [address] [place] [address], [place] [address] 16 Aug, 2014 [facility] [address] [id number] [address] [place] [address], [place] [address] Aug, [facility] [address] [id number] [address] [place] [address], [place] [address] Aug, [facility] [address] [id number] [address] [place] [address], [place] [address] Aug, [facility] [address] [id number] [facility] [place] [address] Aug, [facility] [address] [id number] [address] [place] [address], [place] [address] Jul, [facility] [address] [id number] [address] [place] [address], [place] [address] Jul, [facility] [address] [id number] [address] [place] [address], [place] [address] Jul, [facility] [address] [id number] [address] [place] [address], [place] [address] Jul, [facility] [address] [id number] [address] [place] [address], [place] [address] Jul, [facility] [address] [id number] [address] [place] [address], [place] [address] Jul, [facility] [address] [id number] [address] [place] [address], [place] [address] Jul, [facility] [address] [id number] [address] [place] [address], [place] [address] Jul, [facility] [address] [id number] [address] [place] [address], [place] [address] Jul, [facility] [address] [id number] [address] [place] [address], [place] [address] Jul, [facility] [address] [id number] [address] [place] [address], [place] [address] Jun, [facility] [address] [id number] [address] [place] [address], [place] [address] Jun, [facility] [address] [id number] [address] [place] [address], [place] [address] Jun, [facility] [address] [id number] [address] [place] [address], [place] [address] Jun, [facility] [address] [id number] [address] [place] [address], [place] [address] Jun, [facility] [address] [id number] [facility] [place] [address] Jun, [facility] [address] [id number] [address] [place] [address], [place] [address] Jun, [facility] [address] [id number] [address] [place] [address], [place] [address] Jun, [facility] [address] [id number] [address] [place] [address], [place] [address] Jun, [facility] [address] [id number] [address] [place] [address], [place] [address] Jun, [facility] [address] [id number] [address] [place] [address], [place] [address] Jun, [facility] [address] [id number] [address] [place] [address], [place] [address] Jun, [facility] [address] [id number] [address] [place] [address], [place] [address] May, [facility] [address] [id number] [address] [place] [address], [place] [address] May, [facility] [address] [id number] [address] [place] [address], [place] [address] May, [facility] [address] [id number] [address] [place] [address], [place] [address] May, [facility] [address] [id number] [address] [place] [address], [place] [address] May, [facility] [address] [id number] [address] [place] [address], [place] [address] May, [facility] [address] [id number] [address] [place] [address], [place] [address] March, [facility] [address] [id number] [address] [place] [address], [place] [address] March, [facility] [address] [id number] [facility] [place] [address] March, [facility] [address] [id number] [address] [place] [address], [place] [address] March, [facility] [address] [id number] [address] [place] [address], [place] [address] March, [facility] [address] [id number] [address] [place] [address], [place] [address] March, [facility] [address] [id number] [address] [place] [address], [place] [address] Feb, [facility] [address] [id number] [address] [place] [address], [place] [address] Feb, [facility] [address] [id number] [address] [place] [address], [place] [address] Feb, [facility] [address] [id number] [address] [place] [address], [place] [address] Feb, [facility] [address] [id number] [address] [place] [address], [place] [address] Jan, [facility] [address] [id number] [address] [place] [address], [place] [address] Jan, [facility] [address] [id number] [address] [place] [address], [place] [address] Jan, [facility] [address] [id number] [address] [place] [address], [place] [address] Jan, [facility] [address] [id number] [address] [place] [address], [place] [address] Jan, [facility] [address] [id number] [address] [place] [address], [place] [address] Jan, [facility] [address] [id number] [address] [place] [address], [place] [address] Jan, [facility] [address] [id number] [address] [place] [address], [place] [address] Jan, [facility] [address] [id number] [facility] [place] [address] Jan, [facility] [address] [id number] [address] [place] [address], [place] [address] Jan, [facility] [address] [id number] [facility] [place] [address] Jan, [facility] [address] [id number] [address] [place] [address], [place] [address] Jan, [facility] [address] [id number] [address] [place] [address], [place] [address] Dec, [facility] [address] [id number] [address] [place] [address], [place] [address] Dec, [facility] [address] [id number] [address] [place] [address], [place] [address] Dec, [facility] [address] [id number] [address] [place] [address], [place] [address] Dec, [facility] [address] [id number] [address] [place] [address], [place] [address] Dec, [facility] [address] [id number] [address] [place] [address], [place] [address] Dec, [facility] [address] [id number] [address] [place] [address], [place] [address] Nov, [facility] [address] [id number] [address] [place] [address], [place] [address] Nov, [facility] [address] [id number] [address] [place] [address], [place] [address] Oct, [facility] [address] [id number] [address] [place] [address], [place] [address] Oct, [facility] [address] [id number] [address] [place] [address], [place] [address] Oct, [facility] [address] [id number] [address] [place] [address], [place] [address] Oct, [facility] [address] [id number] [address] [place] [address], [place] [address] Oct, [facility] [address] [id number] [address] [place] [address], [place] [address] Oct, [facility] [address] [id number] [address] [place] [address], [place] [address] Sep, [facility] [address] [id number] [address] [place] [address], [place] [address] Sep, [facility] [address] [id number] [address] [place] [address], [place] [address] Sep, [facility] [address] [id number] [address] [place] [address], [place] [address] Sep, [facility] [address] [id number] [address] [place] [address], [place] [address] Aug, [facility] [address] [id number] [address] [place] [address], [place] [address] Aug, [facility] [address] [id number] [address] [place] [address], [place] [address] Aug, [facility] [address] [id number] [address] [place] [address], [place] [address] 17 Jul, 2013 [facility] [address] [id number] [address] [place] [address], [place] [address] 14 Jul, 2013 [facility] [address] [id number] [address] [place] [address], [place] [address] Jul, [facility] [address] [id number] [address] [place] [address], [place] [address] Jun, [facility] [address] [id number] [address] [place] [address], [place] [address] Jun, [facility] [address] [id number] [address] [place] [address], [place] [address] Jun, [facility] [address] [id number] [address] [place] [address], [place] [address] Apr, [facility] [address] [id number] [address] [place] [address], [place] [address] Apr, [facility] [address] [id number] [address] [place] [address], [place] [address] March, [facility] [address] [id number] [address] [place] [address], [place] [address] March, [facility] [address] [id number] [address] [place] [address], [place] [address] March, [facility] [address] [id number] [address] [place] [address], [place] [address] March, [facility] [address] [id number] [address] [place] [address], [place] [address] Feb, [facility] [address] [id number] [address] [place] [address], [place] [address] Jan, [facility] [address] [id number] [address] [place] [address], [place] [address] Dec, [facility] [address] [id number] [address] [place] [address], [place] [address] Dec, [facility] [address] [id number] [address] [place] [address], [place] [address] Dec, [facility] [address] [id number] [address] [place] [address], [place] [address] Nov, [facility] [address] [id number] [address] [place] [address], [place] [address] Oct, [facility] [address] [id number] [address] [place] [address], [place] [address] Oct, [facility] [address] [id number] [address] [place] [address], [place] [address] Sep, [facility] [address] [id number] [address] [place] [id number] Sep, [facility] [address] [id number] [address] [place] [address], [place] [address] Sep, [facility] [address] [id number] [address] [place] [address] Sep, [facility] [address] [id number] [address] [place] [address], [place] [address] Sep, [facility] [address] [id number] [address] [place] [address], [place] [address] Sep, [facility] [address] [id number] [address] [place] [address], [place] [address] Sep, [facility] [address] [id number] [address] [place] [address], [place] [address] Aug, [facility] [address] [id number] [address] [place] [id number] Aug, [facility] [address] [id number] [address] [place] [id number] Aug, [facility] [address] [id number] [address] [place] [address], [place] [address] Aug, [facility] [address] [id number] [address] [place] [id number] Aug, [facility] [address] [id number] [address] [place] [id number] Aug, [facility] [address] [id number] [address] [place] [id number] Aug, [facility] [address] [id number] [address] [place] [id number] Aug, [facility] [address] [id number] [address] [place] [address], [place] [address] Jul, [facility] [address] [id number] [address] [place] [id number] 12 Jul, 2012 [facility] [address] [id number] [facility] [place] [address] Jun, [facility] [address] [id number] [address] [place] [address], [place] [address] May, [facility] [address] [id number] [address] [place] [address], [place] [address] Apr, [facility] [address] [id number] [address] [place] [address], [place] [address] Apr, [facility] [address] [id number] [address] [place] [address], [place] [address] Apr, [facility] [address] [id number] [address] [place] [address], [place] [address] March, [facility] [address] [id number] [address] [place] [address], [place] [address] March, [facility] [address] [id number] [address] [place] [address], [place] [address] March, [facility] [address] [id number] [address] [place] [address], [place] [address] March, [facility] [address] [id number] [address] [place] [address], [place] [address] March, [facility] [address] [id number] [address] [place] [address], [place] [address] March, [facility] [address] [id number] [address] [place] [address], [place] [address] March, [facility] [address] [id number] [address] [place] [address], [place] [address] Jan, [facility] [address] [id number] [address] [place] [address], [place] [address] Jan, [facility] [address] [id number] [address] [place] [address], [place] [address] Jan, [facility] [address] [id number] [address] [place] [address], [place] [address] 13 Jan, 2012 [facility] [address] [id number] [address] [place] [address], [place] [address] Jan, [facility] [address] [id number] [address] [place] [address], [place] [address] 08 Dec, 2011 [facility] [address] [id number] [address] [place] [address], [place] [address] Dec, [facility] [address] [id number] [address] [place] [address], [place] [address] Nov, [facility] [address] [id number] [address] [place] [address], [place] [address] Nov, [facility] [address] [id number] [address] [place] [address], [place] [address] Nov, [facility] [address] [id number] [address] [place] [address], [place] [address] Nov, [facility] [address] [id number] [address] [place] [address], [place] [address] Oct, [facility] [address] [id number] [address] [place] [address], [place] [address] Oct, [facility] [address] [id number] [address] [place] [address], [place] [address] Sep, [facility] [address] [id number] [address] [place] [address], [place] [address] Sep, [facility] [address] [id number] [address] [place] [address], [place] [address] Sep, [facility] [address] [id number] [address] [place] [address], [place] [address] May, [facility] [address] [id number] [address] [place] [address], [place] [address] Nov, [facility] [address] [id number] [address] [place] [address], [place] [address] Oct, [facility] [address] [id number] [address] [place] [address], [place] [address] 14 Oct, 2010 [facility] [address] [id number] [address] [place] [address], [place] [address] 08 Oct, 2010 [facility] [address] [id number] [address] [place] [address], [place] [address] 15 Sep, 2010 [facility] [address] [id number] [address] [place] [address], [place] [address] 02 Sep, 2010 [facility] [address] [id number] [address] [place] [address], [place] [address] 20 Aug, 2010 [facility] [address] [id number] [address] [place] [address], [place] [address] March, [facility] [address] [id number] [address] [place] [address], [place] [address] 17 Oct, 2009 [facility] [address] [id number] [address] [place] [address], [place] [address] 17 Oct, 2009 [facility] [address] [id number] [address] [place] [address], [place] [address] 10 Oct, 2009 [facility] [address] [id number] [address] [place] [address], [place] [address] 02 Oct, 2009 [facility] [address] [id number] [address] [place] [address], [place] [address] Sep, [facility] [address] [id number] [address] [place] [address], [place] [address] 12 Sep, 2009 [facility] [address] [id number] [address] [place] [address], [place] [address] 04 Sep, 2009 [facility] [address] [id number] [address] [place] [address], [place] [address] 27 Aug, 2009 [facility] [address] [id number] [address] [place] [address], [place] [address] 24 Aug, 2009 [facility] [address] [id number] [address] [place] [address], [place] [address] Aug, [facility] [address] [facility] [id number] [address] [place] [address] Jan, IMMUNIZATIONS No Known Immunizations SOCIAL HISTORY Never Assessed REASON FOR VISIT PLAN OF CARE VITAL SIGNS Height 69 in 2014-10-19 Weight 222 lbs 2014-10-19 Temperature 98 degrees Fahrenheit 2014-10-19 Heart Rate 80 bpm 2014-10-19 Respiratory Rate 18 2014-10-19 Blood pressure systolic 130 mmHg 2014-10-19 Blood pressure diastolic 84 mmHg 2014-10-19 MEDICATIONS Unknown Medications RESULTS No Results PROCEDURES [...]
--- OUTSIDE RECORDS SUMMARY | 2020-06-13 16:42 | XMS REPORT ---
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 Name Role Phone Migration, Doctor Unavailable Unavailable PROBLEMS Type Condition ICD9-CM Code VMS08-IJ Code Onset Dates Condition S tatus SNOMED Code Problem Neuropathy G62.9 Active 006969401 Problem Chronic pain G89.29 Active 0352868 1 Problem Overactive bladder N32.81 Active 2 58323786 Problem Hypothyroid E03.9 Active 52248657 Problem Irritable bowel syndrome with diarrhea K58.0 Active 757360820 Problem 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 current use of insulin Z79.4 Active 733978627 Problem Type 2 diabetes mellitus with hyperglycemia E11.65 Active 34525312 Problem Chronic obstructive pulmonary disease, unspecified COPD ty pe J44.9 Active 88445424 Problem Gastroesophageal reflux disease with esophagitis K 21.0 Active 672552253 Problem Major depressive disorder, recurrent, in full remission F33.42 Active 35233497 Problem Mixed hyperlipidemia E78.2 Active 625803983 Problem Essential (primary) hypertension I10 Active 31507625 Problem Anxiety disorder, unspecified type F41.9 Active 438633945 Problem Gastroparesis K31.84 Active 272947 006 Problem 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 Active 787238940 ALLERGIES No Information ENCOUNTERS Encounter Location Date Diagnosis [facility] [address] [facility] [id number] [address] [place] [address] Jul, Chronic pain G89.29 [facility] [address] [facility] [id number] [address] [place] [address] Jun, Other chronic pain G89.29 [facility] [address] [facility] [id number] [address] [place] [address] Jun, [facility] [address] [facility] [id number] [address] [place] [address] Jun, Chronic pain G89.29 [facility] [address] [place] [id number] [address] [place] [address] Jun, Neuropathy G62.9 [place] [address] [place] [address] Jun, Encounter for Medicare kodi wellness exam Z00.00 ; Type 2 diabetes mellitus with hyperglycemia E11.65 ; Mixed hyperlipidemia E78.2 ; Hypothyroid E03.9 ; Gastroesophageal reflux disease with esophagitis K21.0 ; Essential (primary) hypertension I10 ; Major depressive disorder, recurrent, in full remission F33.42 ; Chronic obstructive pulmonary disease, unspecified COPD type J44.9 ; Neuropathy G62.9 and Encounter for immunization Z23 [place] [address] [address] Jun, Irritable bowel syndrome wit h diarrhea K58.0 [place] [address] [address] May, Chronic pain G89.29 [place] [address] [place] [id number] [address] [place] [address] May, Type 2 diabetes mellitus wit h hyperglycemia E11.65 and Neuropathy G62.9 [place] [address] [place] [id number] [address] [place] [address] May, Chronic pain G89.29 [place] [address] [place] [id number] [address] [place] [address] Apr, Poison maryam dermatitis L23.7 [place] [address] [place] [id number] [address] [place] [address] Apr, Chronic pain G89.29 [place] [address] [facility] [id number] [address] [place] [address] March, Type 2 diabetes mellitus wit h hyperglycemia E11.65 [place] [address] [facility] [id number] [address] [place] [address] March, Chronic pain G89.29 [place] [address] [facility] [id number] [address] [place] [address] March, [facility] [address] [place] [address] Feb, [facility] [address] [facility] [id number] [address] [place] [address] Feb, Other chronic pain G89.29 an d Chronic pain G89.29 [facility] [address] [facility] [id number] [address] [place] [address] Jan, Mixed hyperlipidemia E78.2 [facility] [address] [facility] [id number] [address] [place] [address] Jan, Chronic pain G89.29 [facility] [address] [facility] [id number] [address] [place] [address] Jan, Type 2 diabetes mellitus wit h hyperglycemia E11.65 ; Mixed hyperlipidemia E78.2 ; 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 ; Acquired hypothyroidism E03.9 and Essential (primary) hypertension I10 [facility] [address] [facility] [id number] [address] [place] [address] Dec, Chronic pain G89.29 [facility] [address] [facility] [id number] [address] [place] [address] Nov, Chronic pain G89.29 [facility] [address] [facility] [id number] [address] [place] [address] Nov, [facility] [address] [facility] [id number] [address] [place] [address] Oct, Chronic pain G89.29 [facility] [address] [facility] [id number] [address] [place] [address] Oct, [facility] [address] [facility] [id number] [address] [place] [address] Sep, [facility] [address] [facility] [id number] [address] [place] [address] Sep, Type 2 diabetes mellitus wit h hyperglycemia E11.65 [facility] [address] [place] [address] Sep, Chronic pain G89.29 [place] [address] [address] Sep, [place] [address] [place] [id number] [address] [place] [address] Sep, Type 2 diabetes mellitus wit h hyperglycemia E11.65 ; Irritable bowel syndrome with diarrhea K58.0 ; Gastroparesis K31.84 ; 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 and Dermatitis L30.9 [place] [address] [place] [address] Aug, Chronic pain G89.29 [place] [address] [address] Jul, Chronic pain G89.29 [place] [address] [address] Jun, Type 2 diabetes mellitus wit h hyperglycemia E11.65 ; Neuropathy G62.9 ; Recurrent major depressive disorder, in partial remission F33.41 ; Chronic pain G89.29 and Hypertriglyceridemia E78.1 [place] [address] [place] [id number] [address] [place] [address] Jun, Hypothyroid E03.9 [place] [address] [address] Jun, Major depressive disorder, r ecurrent episode, moderate F33.1 and Anxiety disorder, unspecified type F41.9 [place] [address] [place] [address] Jun, [place] [address] [address] Jun, Type 2 diabetes mellitus wit h hyperglycemia E11.65 ; 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 current use of insulin Z79.4 ; Recurrent major depressive disorder, in partial remission F33.41 ; Hypothyroid E03.9 ; Candidal dermatitis B37.2 and Weakness generalized R53.1 [facility] [address] [id number] [address] [place] [address] May, [facility] [address] [facility] [id number] [address] [place] [address] May, [facility] [address] [facility] [id number] [address] [place] [address] May, [facility] [address] [id number] [address] [place] [address] May, Generalized abdominal pain R 10.84 and Candidal dermatitis B37.2 [place] [address] [facility] [id number] [address] [place] [address] May, [place] [address] [facility] [id number] [address] [place] [address] May, [place] [address] [place] [id number] [place] [address] May, Nodular radiologic density R 93.8 ; Weight loss, unintentional R63.4 and Pulmonary emphysema, unspecified emphysema type J43.9 [place] [address] [place] [id number] [address] [place] [address] May, Chronic pain G89.29 [place] [address] [place] [id number] [address] [place] [address] May, Syncope and collapse R55 ; C hronic fatigue R53.[address] lung screening R91.8 [place] [address] [facility] [id number] [address] [place] [address] May, [place] [address] [facility] [id number] [address] [place] [address] Apr, Chronic fatigue R53.82 ; Abn ormal chest CT R93.8 ; Elevated erythrocyte sedimentation rate R70.0 ; Hypothyroid E03.9 and Recurrent major depressive disorder, in partial remission F33.41 [place] [address] [place] [id number] [address] [place] [address] Apr, Hypothyroid E03.9 [facility] [address] [facility] [id number] [address] [place] [address] Apr, Depression F32.9 [facility] [address] [facility] [id number] [address] [place] [address] Apr, [place] [address] [facility] [id number] [address] [place] [address] March, [place] [address] [facility] [id number] [address] [place] [address] March, Hypothyroid E03.9 [place] [address] [facility] [id number] [address] [place] [address] March, Diabetes mellitus E11.9 and Hypothyroid E03.9 [place] [address] [facility] [id number] [address] [place] [address] March, Diabetes mellitus E11.9 [place] [address] [facility] [id number] [address] [place] [address] March, Hypothyroid E03.9 and Elevat ed liver enzymes R74.8 [place] [address] [facility] [id number] [address] [place] [address] March, Type 2 diabetes mellitus wit h [...] major depressive disorder, in partial remission F33.41 [place] [address] [facility] [id number] [address] [place] [address] Feb, Chronic pain G89.29 [place] [address] [facility] [id number] [address] [place] [address] Feb, Type 2 diabetes mellitus wit h hyperglycemia E11.65 and Skin lesion of scalp L98.9 [place] [address] [place] [id number] [address] [place] [address] Feb, [place] [address] [place] [id number] [address] [place] [address] Jan, Type 2 diabetes mellitus wit h hyperglycemia E11.65 ; 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 ; Essential (primary) hypertension I10 ; Pulmonary emphysema, unspecified emphysema type J43.9 ; Chronic pain G89.29 ; Controlled substance agreement signed Z79.899 ; Hypothyroid E03.9 ; Neuropathy G62.9 ; Gastroesophageal reflux disease with esophagitis K21.0 ; Overactive bladder N32.81 ; Depression F32.9 and Irritable bowel syndrome with diarrhea K58.0 [place] [address] [place] [id number] [address] [place] [address] Jan, [place] [address] [address] Jan, Controlled substance agreeme nt signed Z79.899 [place] [address] [place] [id number] [address] [place] [address] Dec, Type 2 diabetes mellitus wit h [...] treatment Z91.19 and Overweight (BMI 25.0-29.9) E66.3 [place] [address] [place] [id number] [address] [place] [address] Dec, Controlled substance agreeme nt signed Z79.899 [place] [address] [place] [address] Nov, Type 2 diabetes mellitus wit h hyperglycemia E11.65 and Current non- adherence to medical treatment Z91.19 [facility] [address] [facility] [id number] [address] [place] [address] Nov, [facility] [address] [facility] [id number] [address] [place] [address] Nov, Chronic pain G89.29 [facility] [address] [facility] [id number] [address] [place] [address] Nov, [facility] [address] [facility] [id number] [address] [place] [address] Nov, Hypothyroid E03.9 [place] [address] [facility] [id number] [address] [place] [address] Nov, Hypothyroid E03.9 [place] [address] [facility] [id number] [address] [place] [address] Nov, Pulmonary emphysema, unspeci fied emphysema type J43.9 and Irritable bowel syndrome with diarrhea K58.0 [place] [address] [facility] [id number] [address] [place] [address] Oct, [place] [address] [place] [id number] [address] [place] [address] Oct, [place] [address] [place] [id number] [address] [place] [address] Oct, [place] [address] [place] [id number] [address] [place] [address] Oct, [place] [address] [facility] [id number] [address] [place] [address] Oct, Chronic pain G89.29 [place] [address] [facility] [id number] [address] [place] [address] Oct, Diabetes mellitus E11.9 ; De pression F32.9 ; Mixed hyperlipidemia E78.2 ; Hypotension, unspecified hypotension type I95.9 ; Pulmonary emphysema, unspecified emphysema type J43.9 and Weight loss, unintentional R63.4 [place] [address] [place] [id number] [address] [place] [address] Oct, Chronic pain G89.29 [facility] [address] [address] Sep, Chronic pain G89.29 [place] [address] [place] [id number] [place] [address] Sep, Hypothyroid E03.9 and Diabet es mellitus E11.9 [place] [address] [place] [id number] [address] [place] [address] Aug, Type 2 diabetes mellitus wit h hyperglycemia E11.65 ; 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 ; Essential (primary) hypertension I10 ; Hypothyroid E03.9 ; Neuropathy G62.9 ; Chronic pain G89.29 ; Mixed hy perlipidemia E78.2 and Encounter for immunization Z23 [place] [address] [address] Aug, Chronic pain G89.29 [place] [address] [address] Aug, Overactive bladder N32.81 ; Diabetes mellitus E11.9 and Chronic pain G89.29 [place] [address] [place] [id number] [address] [place] [address] Jul, [place] [address] [place] [id number] [address] [place] [address] Jun, [place] [address] [place] [id number] [address] [place] [address] Jun, [place] [address] [place] [id number] [address] [place] [address] Jun, Hypothyroid E03.9 [facility] [address] [place] [id number] [address] [place] [address] Jun, Diabetes mellitus E11.9 ; Hy pothyroid E03.9 ; Neuropathy G62.9 ; Chronic pain G89.29 and Neck mass R22.1 [facility] [address] [facility] [id number] [address] [place] [address] Apr, [facility] [address] [facility] [id number] [address] [place] [address] Apr, Acute cystitis without hemat uria N30.00 [facility] [address] [facility] [id number] [address] [place] [address] March, [facility] [address] [facility] [id number] [address] [place] [address] March, [facility] [address] [facility] [id number] [address] [place] [address] March, Near syncope R55 [facility] [address] [facility] [id number] [address] [place] [address] Feb, [facility] [address] [facility] [id number] [address] [place] [address] Feb, Chronic pain G89.29 [facility] [address] [facility] [id number] [address] [place] [address] Feb, [facility] [address] [facility] [id number] [address] [place] [address] Feb, [facility] [address] [facility] [id number] [address] [place] [address] Jan, Chronic pain G89.29 [facility] [address] [facility] [id number] [address] [place] [address] Jan, [facility] [address] [facility] [id number] [address] [place] [address] Jan, [facility] [address] [facility] [id number] [address] [place] [address] 14 Jan, 2017 Diabetes mellitus E11.9 ; Hy pothyroid E03.9 ; GERD (gastroesophageal reflux disease) K21.9 ; Insomnia G47.00 ; Functional 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 ; Neuropathy G62.9 ; Depression F32.9 ; Chronic pain G89.29 ; Irritable bowel syndrome with diarrhea K58.0 ; Overactive bladder N32.81 ; Mixed hyperlipidemia E78.2 and Bronchitis J40 [facility] [address] [facility] [id number] [address] [place] [address] Dec, [facility] [address] [facility] [id number] [address] [place] [address] Dec, [facility] [address] [facility] [id number] [address] [place] [address] Dec, [facility] [address] [facility] [id number] [address] [place] [address] Dec, [facility] [address] [facility] [id number] [address] [place] [address] Dec, Chronic pain G89.29 [facility] [address] [place] [address] Dec, [facility] [address] [place] [id number] [address] [place] [address] Dec, [facility] [address] [place] [id number] [address] [place] [address] Dec, Type 2 diabetes mellitus wit h foot ulcer E11.621 [facility] [address] [address] 17 Dec, 2016 Type 2 diabetes mellitus wit h foot ulcer E11.621 [place] [id number] [place] [address] 14 Dec, 2016 HTN (hypertension) I10 ; Dep ression F32.9 ; Type 2 diabetes mellitus with foot ulcer E11.621 ; Functional diarrhea K59.1 ; Irritable bowel syndrome with diarrhea K58.0 ; Chronic pain G89.29 ; Insomnia G47.00 ; Overactive bladder N32.81 ; Mixed hyperlipidemia E78.2 ; Gastroesophageal reflux disease with esophagitis K21.0 and Acquired hypothyroidism E03.9 [facility] [id number] [place] [address] Nov, [place] [address] [address] Oct, [place] [address] [address] Oct, [place] [address] [address] Oct, [place] [address] [address] Sep, Functional diarrhea K59.1 ; HTN (hypertension) I10 ; Diabetes mellitus E11.9 ; Depression F32.9 ; Overactive bladder N32.81 ; Mixed hyperlipidemia E78.2 ; Gastroesophageal reflux disease without esophagitis K21.9 ; Chronic pain G89.29 ; Insomnia G47.00 and Acquired hypothyroidism E03.9 [place] [address] [address] Sep, [place] [address] [address] Aug, Encounter for immunization Z [address] [address] Aug, [place] [address] [address] Jul, [place] [address] [address] Jun, Type 2 diabetes mellitus wit hout complications E11.9 ; HTN (hypertension) I10 ; Hypothyroid E03.9 ; Neuropathy G62.9 ; Depression F32.9 ; Chronic pain G89.29 ; GERD (gastroesophageal reflux disease) K21.9 ; Insomnia G47.00 ; Overactive bladder N32.81 ; Mixed hyperlipidemia E78.2 ; Diarrhea of infectious origin A09 and Environmental allergies Z91.[address] [address] Apr, [place] [id number] [place] [id number] [place] [id number] March, Hypothyroidism, unspecified E03.9 and Mixed hyperlipidemia E78.2 [place] [address] [address] March, Diabetes mellitus E11.9 ; HT N (hypertension) I10 ; Hypothyroid E03.9 ; Depression F32.9 ; Overactive bladder N32.81 ; Other chronic pain G89.29 ; Lumbago with sciatica, unspecified side M54.40 ; Environmental allergies Z91.09 and Gastroesophageal reflux disease, esophagitis presence not specified K21.9 [place] [address] [address] March, [place] [address] [address] Jan, HTN (hypertension) I10 ; Hyp othyroid E03.9 ; Neuropathy G62.9 ; Diabetes mellitus E11.9 ; Chronic pain G89.29 ; GERD (gastroesophageal reflux disease) K21.9 ; Overactive bladder N32.81 and Depression F32.9 [place] [address] [address] Dec, Ear pain, left H92.02 ; HTN (hypertension) I10 ; Hypothyroid E03.9 ; Neuropathy G62.9 ; Diabetes mellitus E11.9 ; Depression F32.9 ; GERD (gastroesophageal reflux disease) K21.9 ; Insomnia G47.00 and Overactive bladder N32.81 [place] [address] [place] [id number] [place] [address] Nov, Overactive bladder N32.81 an d Chronic pain G89.29 [place] [address] [address] [place] [id number] [place] [phone] Nov, Kidney failure N19 [place] [address] [address] [place] [id number] [place] [phone] Nov, [place] [address] [address] Nov, [address] [address] Nov, Diabetes mellitus E11.9 ; De pression F32.9 ; Chronic pain G89.29 ; GERD (gastroesophageal reflux disease) K21.9 ; Insomnia G47.00 ; HTN (hypertension) I10 ; Hypothyroid E03.9 ; COPD (chronic obstructive pulmonary disease) J44.9 ; Bladder incontinence R32 and Incontinence R32 [address] [address] Sep, Type 2 diabetes mellitus wit h foot ulcer E11.621 and Chromosomal abnormality, 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 [address] Sep, [address] [address] Aug, [place] [address] [address] Aug, [address] [address] Aug, HTN (hypertension) I10 ; Enc ounter for immunization Z23 ; Hypothyroid E03.9 ; Neuropathy G62.9 ; Diabetes mellitus E11.9 ; Depression F32.9 ; Chronic pain G89.29 ; GERD (gastroesophageal reflux disease) K21.9 ; Insomnia G47.00 and COPD (chronic obstructive pulmonary disease) J44.9 [place] [address] [address] Jun, [address] [address] Jun, [place] [address] [address] May, Essential hypertension, ivis gn 401.1 ; Unspecified hypothyroidism 244.9 ; Insomnia, unspecified 780.52 ; Shortness of breath 786.05 ; Depression 311 ; COPD (chronic obstructive pulmonary disease) 496 ; GERD (gastroesophageal reflux disease) 530.81 and Diabetes 1.5, 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 [facility] [address] [id number] May, [facility] [address] [address] May, [facility] [address] [address] May, Shortness of breath 786.05 ; Essential hypertension, benign 401.1 ; Diabetes mellitus 250.00 ; Hyperlipidemia 272.4 ; Hypothyroid 244.9 ; Insomnia 780.52 and Cough 786.2 [facility] [address] [address] Apr, [facility] [address] [id number] March, Shortness of breath 786.05 ; Nausea with vomiting 787.01 ; Essential hypertension, benign 401.1 ; Diabetes mellitus 250.00 ; Hyperlipidemia 272.4 and Hypothyroid 244.9 [facility] [address] [id number] [address] [place] [address] Feb, [facility] [address] [id number] [address] [place] [address] Feb, [facility] [address] [id number] [address] [place] [id number] Jan, [facility] [address] [id number] [address] [place] [id number] Jan, [facility] [address] [address] Jan, [facility] [address] [id number] [address] [place] [id number] Jan, [facility] [address] [place] [address] 05 Jan, 2014 [facility] [address] [id number] [address] [place] [address], [place] [address] Jan, 2014 [facility] [address] [id number] [address] [place] [address], [place] [address] Jan, 2014 [facility] [address] [id number] [address] [place] [address], [place] [address] Jan, 2014 [facility] [address] [id number] [address] [place] [address], [place] [address] Jan, 2014 [facility] [address] [id number] [address] [place] [address], [place] [address] Jan, 2014 [facility] [address] [id number] [address] [place] [address], [place] [address] Dec, 2014 [facility] [address] [id number] [address] [place] [address], [place] [address] Dec, 2014 [facility] [address] [id number] [address] [place] [address], [place] [address] Dec, 2014 [facility] [address] [id number] [address] [place] [address], [place] [address] Dec, 2014 [facility] [address] [id number] [address] [place] [address], [place] [address] Dec, 2014 [facility] [address] [id number] [address] [place] [address], [place] [address] Dec, 2014 [facility] [address] [id number] [address] [place] [address], [place] [address] Dec, 2014 [facility] [address] [id number] [address] [place] [address], [place] [address] Dec, 2014 [facility] [address] [id number] [address] [place] [address], [place] [address] Dec, 2014 [facility] [address] [id number] [address] [place] [address], [place] [address] Dec, [facility] [address] [id number] [facility] [address] Oct, [facility] [address] [id number] [address] [place] [address], [place] [address] Oct, [facility] [address] [id number] [address] [place] [address], [place] [address] Oct, [facility] [address] [id number] [address] [place] [address], [place] [address] Oct, [facility] [address] [id number] [address] [place] [address], [place] [address] Oct, [facility] [address] [id number] [address] [place] [address], [place] [address] Oct, [facility] [address] [id number] [address] [place] [address], [place] [address] Oct, [facility] [address] [id number] [address] [place] [address], [place] [address] Oct, [facility] [address] [id number] [address] [place] [address], [place] [address] Oct, [facility] [address] [id number] [address] [place] [address], [place] [address] Oct, [facility] [address] [id number] [address] [place] [address], [place] [address] Oct, [facility] [address] [id number] [address] [place] [address], [place] [address] Oct, [facility] [address] [id number] [address] [place] [address], [place] [address] Oct, [facility] [address] [id number] [address] [place] [address], [place] [address] Oct, [facility] [address] [id number] [address] [place] [address], [place] [address] Sep, [facility] [address] [id number] [address] [place] [address], [place] [address] Sep, [facility] [address] [id number] [address] [place] [address], [place] [address] Sep, [facility] [address] [id number] [address] [place] [address], [place] [address] Sep, [facility] [address] [id number] [address] [place] [address], [place] [address] Sep, [facility] [address] [id number] [address] [place] [address], [place] [address] Sep, [facility] [address] [id number] [address] [place] [address], [place] [address] Sep, [facility] [address] [id number] [address] [place] [address], [place] [address] Sep, [facility] [address] [id number] [address] [place] [address], [place] [address] Sep, [facility] [address] [id number] [address] [place] [address], [place] [address] Aug, [facility] [address] [id number] [address] [place] [address], [place] [address] Aug, [facility] [address] [id number] [address] [place] [address], [place] [address] Aug, [facility] [address] [id number] [address] [place] [address], [place] [address] Aug, [facility] [address] [id number] [address] [place] [address], [place] [id number] 16 Aug, 2014 [facility] [address] [id number] [address] [place] [address], [place] [address] Aug, [facility] [address] [id number] [address] [place] [address], [place] [address] Aug, [facility] [address] [id number] [address] [place] [address], [place] [address] Aug, [facility] [address] [id number] [facility] [address] Aug, [facility] [address] [id number] [address] [place] [address], [place] [address] Jul, [facility] [address] [id number] [address] [place] [address], [place] [address] Jul, [facility] [address] [id number] [address] [place] [address], [place] [address] Jul, [facility] [address] [id number] [address] [place] [address], [place] [address] Jul, [facility] [address] [id number] [address] [place] [address], [place] [address] Jul, [facility] [address] [id number] [address] [place] [address], [place] [address] Jul, [facility] [address] [id number] [address] [place] [address], [place] [address] Jul, [facility] [address] [id number] [address] [place] [address], [place] [address] Jul, [facility] [address] [id number] [address] [place] [address], [place] [address] Jul, [facility] [address] [id number] [address] [place] [address], [place] [address] Jul, [facility] [address] [id number] [address] [place] [address], [place] [address] Jun, [facility] [address] [id number] [address] [place] [address], [place] [address] Jun, [facility] [address] [id number] [address] [place] [address], [place] [address] Jun, [facility] [address] [id number] [address] [place] [address], [place] [address] Jun, [facility] [address] [id number] [address] [place] [address], [place] [address] Jun, [facility] [address] [id number] [facility] [address] Jun, [facility] [address] [id number] [address] [place] [address], [place] [address] Jun, [facility] [address] [id number] [address] [place] [address], [place] [address] Jun, [facility] [address] [id number] [address] [place] [address], [place] [address] Jun, [facility] [address] [id number] [address] [place] [address], [place] [address] Jun, [facility] [address] [id number] [address] [place] [address], [place] [address] Jun, [facility] [address] [id number] [address] [place] [address], [place] [address] Jun, [facility] [address] [id number] [address] [place] [address], [place] [address] May, [facility] [address] [id number] [address] [place] [address], [place] [address] May, [facility] [address] [id number] [address] [place] [address], [place] [address] May, [facility] [address] [id number] [address] [place] [address], [place] [address] May, [facility] [address] [id number] [address] [place] [address], [place] [address] May, [facility] [address] [id number] [address] [place] [address], [place] [address] May, [facility] [address] [id number] [address] [place] [address], [place] [address] March, [facility] [address] [id number] [address] [place] [address], [place] [address] March, [facility] [address] [id number] [facility] [address] March, [facility] [address] [id number] [address] [place] [address], [place] [address] March, [facility] [address] [id number] [address] [place] [address], [place] [address] March, [facility] [address] [id number] [address] [place] [address], [place] [address] March, [facility] [address] [id number] [address] [place] [address], [place] [address] Feb, [facility] [address] [id number] [address] [place] [address], [place] [address] Feb, [facility] [address] [id number] [address] [place] [address], [place] [address] Feb, [facility] [address] [id number] [address] [place] [address], [place] [address] Feb, [facility] [address] [id number] [address] [place] [address], [place] [address] Jan, [facility] [address] [id number] [address] [place] [address], [place] [address] Jan, [facility] [address] [id number] [address] [place] [address], [place] [address] Jan, [facility] [address] [id number] [address] [place] [address], [place] [address] Jan, [facility] [address] [id number] [address] [place] [address], [place] [address] Jan, [facility] [address] [id number] [address] [place] [address], [place] [address] Jan, [facility] [address] [id number] [address] [place] [address], [place] [address] Jan, [facility] [address] [id number] [address] [place] [address], [place] [address] Jan, [facility] [address] [id number] [facility] [place] [address] Jan, [facility] [address] [id number] [address] [place] [address], [place] [address] Jan, [facility] [address] [id number] [facility] [place] [address] Jan, [facility] [address] [id number] [address] [place] [address], [place] [address] Jan, [facility] [address] [id number] [address] [place] [address], [place] [address] Dec, [facility] [address] [id number] [address] [place] [address], [place] [address] Dec, [facility] [address] [id number] [address] [place] [address], [place] [address] Dec, [facility] [address] [id number] [address] [place] [address], [place] [address] Dec, [facility] [address] [id number] [address] [place] [address], [place] [address] Dec, [facility] [address] [id number] [address] [place] [address], [place] [address] Dec, [facility] [address] [id number] [address] [place] [address], [place] [address] Nov, [facility] [address] [id number] [address] [place] [address], [place] [address] Nov, [facility] [address] [id number] [address] [place] [address], [place] [address] Oct, [facility] [address] [id number] [address] [place] [address], [place] [address] Oct, [facility] [address] [id number] [address] [place] [address], [place] [address] Oct, [facility] [address] [id number] [address] [place] [address], [place] [address] Oct, [facility] [address] [id number] [address] [place] [address], [place] [address] Oct, [facility] [address] [id number] [address] [place] [address], [place] [address] Oct, [facility] [address] [id number] [address] [place] [address], [place] [address] Sep, [facility] [address] [id number] [address] [place] [address], [place] [address] Sep, [facility] [address] [id number] [address] [place] [address], [place] [address] Sep, [facility] [address] [id number] [address] [place] [address], [place] [address] Sep, [facility] [address] [id number] [address] [place] [address], [place] [address] Aug, [facility] [address] [id number] [address] [place] [address], [place] [address] Aug, [facility] [address] [id number] [address] [place] [address], [place] [address] Aug, [facility] [address] [id number] [address] [place] [address], [place] [address] 17 Jul, 2013 [facility] [address] [id number] [address] [place] [address], [place] [address] 14 Jul, 2013 [facility] [address] [id number] [address] [place] [address], [place] [address] Jul, [facility] [address] [id number] [address] [place] [address], [place] [address] Jun, [facility] [address] [id number] [address] [place] [address], [place] [address] Jun, [facility] [address] [id number] [address] [place] [address], [place] [address] Jun, [facility] [address] [id number] [address] [place] [address], [place] [address] Apr, [facility] [address] [id number] [address] [place] [address], [place] [address] Apr, [facility] [address] [id number] [address] [place] [address], [place] [address] March, [facility] [address] [id number] [address] [place] [address], [place] [address] March, [facility] [address] [id number] [address] [place] [address], [place] [address] March, [facility] [address] [id number] [address] [place] [address], [place] [address] March, [facility] [address] [id number] [address] [place] [address], [place] [address] Feb, [facility] [address] [id number] [address] [place] [address], [place] [address] Jan, [facility] [address] [id number] [address] [place] [address], [place] [address] Dec, [facility] [address] [id number] [address] [place] [address], [place] [address] Dec, [facility] [address] [id number] [address] [place] [address], [place] [address] Dec, [facility] [address] [id number] [address] [place] [address], [place] [address] Nov, [facility] [address] [id number] [address] [place] [address], [place] [address] Oct, [facility] [address] [id number] [address] [place] [address], [place] [address] Oct, [facility] [address] [id number] [address] [place] [address], [place] [address] Sep, [facility] [address] [id number] [address] [place] [address] Sep, [facility] [address] [id number] [address] [place] [address], [place] [address] Sep, [facility] [address] [id number] [address] [place] [id number] Sep, [facility] [address] [id number] [address] [place] [address], [place] [address] Sep, [facility] [address] [id number] [address] [place] [address], [place] [address] Sep, [facility] [address] [id number] [address] [place] [address], [place] [address] Sep, [facility] [address] [id number] [address] [place] [address], [place] [address] Aug, [facility] [address] [id number] [address] [place] [address] Aug, [facility] [address] [id number] [address] [place] [id number] Aug, [facility] [address] [id number] [address] [place] [address], [place] [id number] Aug, [facility] [address] [id number] [address] [place] [id number] Aug, [facility] [address] [id number] [address] [place] [id number] Aug, [facility] [address] [id number] [address] [place] [id number] Aug, [facility] [address] [id number] [address] [place] [id number] Aug, [facility] [address] [id number] [address] [place] [address], [place] [id number] Jul, [facility] [address] [id number] [address] [place] [id number] 12 Jul, 2012 [facility] [address] [id number] [facility] [address] Jun, [facility] [address] [id number] [address] [place] [address], [place] [id number] May, [facility] [address] [id number] [address] [place] [address], [place] [id number] Apr, [facility] [address] [id number] [address] [place] [address], [place] [id number] Apr, [facility] [address] [id number] [address] [place] [address], [place] [id number] Apr, [facility] [address] [id number] [address] [place] [address], [place] [id number] March, [facility] [address] [id number] [address] [place] [address], [place] [id number] March, [facility] [address] [id number] [address] [place] [address], [place] [id number] March, [facility] [address] [id number] [address] [place] [address], [place] [id number] March, [facility] [address] [id number] [address] [place] [address], [place] [id number] March, [facility] [address] [id number] [address] [place] [address], [place] [id number] March, [facility] [address] [id number] [address] [place] [address], [place] [id number] March, [facility] [address] [id number] [address] [place] [address], [place] [id number] Jan, [facility] [address] [id number] [address] [place] [address], [place] [id number] Jan, [facility] [address] [id number] [address] [place] [address], [place] [id number] Jan, [facility] [address] [id number] [address] [place] [address], [place] [id number] 13 Jan, 2012 [facility] [address] [id number] [address] [place] [address], [place] [id number] Jan, [facility] [address] [id number] [address] [place] [address], [place] [id number] 08 Dec, 2011 [facility] [address] [id number] [address] [place] [address], [place] [id number] Dec, [facility] [address] [id number] [address] [place] [address], [place] [id number] Nov, [facility] [address] [id number] [address] [place] [address], [place] [id number] Nov, [facility] [address] [id number] [address] [place] [address], [place] [id number] Nov, [facility] [address] [id number] [address] [place] [address], [place] [id number] Nov, [facility] [address] [id number] [address] [place] [address], [place] [id number] Oct, [facility] [address] [id number] [address] [place] [address], [place] [id number] Oct, [facility] [address] [id number] [address] [place] [address], [place] [id number] Sep, [facility] [address] [id number] [address] [place] [address], [place] [id number] Sep, [facility] [address] [id number] [address] [place] [address], [place] [id number] Sep, [facility] [address] [id number] [address] [place] [address], [place] [id number] May, [facility] [address] [id number] [address] [place] [address], [place] [id number] Nov, [facility] [address] [id number] [address] [place] [address], [place] [id number] Oct, [facility] [address] [id number] [address] [place] [address], [place] [id number] 14 Oct, 2010 [facility] [address] [id number] [address] [place] [address], [place] [id number] 08 Oct, 2010 [facility] [address] [id number] [address] [place] [address], [place] [id number] 15 Sep, 2010 [facility] [address] [id number] [address] [place] [address], [place] [id number] 02 Sep, 2010 [facility] [address] [id number] [address] [place] [address], [place] [id number] 20 Aug, 2010 [facility] [address] [id number] [address] [place] [address], [place] [id number] March, [facility] [address] [id number] [place] [address], [place] [id number] 17 Oct, 2009 [facility] [address] [id number] [address] [place] [address], [place] [id number] 17 Oct, 2009 [facility] [address] [id number] [place] [address], [place] [id number] 10 Oct, 2009 [facility] [address] [id number] [address] [place] [address], [place] [id number] 02 Oct, 2009 [facility] [address] [id number] [place] [address], [place] [id number] Sep, [facility] [address] [id number] [address] [place] [address], [place] [id number] 12 Sep, 2009 [facility] [address] [id number] [place] [address], [place] [id number] 04 Sep, 2009 [facility] [address] [id number] [place] [address], [place] [id number] 27 Aug, 2009 [facility] [address] [id number] [place] [address], [place] [id number] 24 Aug, 2009 [facility] [address] [id number] [place] [address], [place] [id number] Aug, [facility] [address] [facility] [id number] [address] [place] [address] 10 Jan, 2009 IMMUNIZATIONS No Known Immunizations [...]
--- OUTSIDE RECORDS SUMMARY | 2020-06-13 16:42 | XMS REPORT ---
Author Author Jah Durant Doctor Organization [facility] Address Unknown Phone Unavailable Care Team Providers Care Mold Clamper Name Role Phone Migration, Doctor Unavailable Unavailable PROBLEMS Type Condition ICD9-CM Code MEU07-GC Code Onset Dates Condition S tatus SNOMED Code Problem Neuropathy G62.9 Active 076576027 Problem Chronic pain G89.29 Active 5938567 1 Problem Overactive bladder N32.81 Active 2 15527842 Problem Hypothyroid E03.9 Active 65295468 Problem Irritable bowel syndrome with diarrhea K58.0 Active 514839776 Problem detention current use of insulin Z79.4 Active 727911782 Problem Type 2 diabetes mellitus with hyperglycemia E11.65 Active 24444223 Problem Chronic obstructive pulmonary disease, unspecified COPD ty pe J44.9 Active 86057047 Problem Gastroesophageal reflux disease with esophagitis K 21.0 Active 391821218 Problem Major depressive disorder, recurrent, in full remission F33.42 Active 25522379 Problem Mixed hyperlipidemia E78.2 Active 616076830 Problem Essential (primary) hypertension I10 Active 88643609 Problem Anxiety disorder, unspecified type F41.9 Active 187295299 Problem Gastroparesis K31.84 Active 120216 006 Problem 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 Active 035479223 ALLERGIES No Information ENCOUNTERS Encounter Location Date Diagnosis [facility] [address] [facility] [id number] [address] [place] [address] Jun, Other chronic pain G89.29 [facility] [address] [facility] [id number] [address] [place] [id number] Jun, [facility] [address] [facility] [id number] [address] [place] [address] Jun, Chronic pain G89.29 [facility] [address] [facility] [id number] [address] [place] [address] Jun, Neuropathy G62.9 [facility] [address] [place] [id number] [address] [place] [address] Jun, Encounter for Medicare annua l wellness exam Z00.00 ; Type 2 diabetes mellitus with hyperglycemia E11.65 ; Mixed hyperlipidemia E78.2 ; Hypothyroid E03.9 ; Gastroesophageal reflux disease with esophagitis K21.0 ; Essential (primary) hypertension I10 ; Major depressive disorder, recurrent, in full remission F33.42 ; Chronic obstructive pulmonary disease, unspecified COPD type J44.9 ; Neuropathy G62.9 and Encounter for immunization Z23 [place] [address] [facility] [id number] [address] [place] [address] Jun, Irritable bowel syndrome wit h diarrhea K58.0 [place] [address] [facility] [id number] [address] [place] [address] May, Chronic pain G89.29 [place] [address] [place] [id number] [address] [place] [address] May, Type 2 diabetes mellitus wit h hyperglycemia E11.65 and Neuropathy G62.9 [place] [address] [facility] [id number] [address] [place] [id number] May, Chronic pain G89.29 [place] [address] [facility] [id number] [address] [place] [address] Apr, Poison maryam dermatitis L23.7 [place] [address] [facility] [id number] [address] [place] [address] Apr, Chronic pain G89.29 [place] [address] [facility] [id number] [address] [place] [address] March, Type 2 diabetes mellitus wit h hyperglycemia E11.65 [place] [address] [facility] [id number] [address] [place] [address] March, Chronic pain G89.29 [place] [address] [facility] [id number] [address] [place] [address] March, [address] [address] Feb, [facility] [address] [facility] [id number] [address] [place] [id number] 09 Feb, 2019 Other chronic pain G89.29 an d Chronic pain G89.29 [facility] [address] [facility] [id number] [address] [place] [address] Jan, Mixed hyperlipidemia E78.2 [facility] [address] [facility] [id number] [address] [place] [address] Jan, Chronic pain G89.29 [facility] [address] [facility] [id number] [address] [place] [id number] 08 Jan, 2019 Type 2 diabetes mellitus wit h hyperglycemia E11.65 ; Mixed hyperlipidemia E78.2 ; detention current use of insulin Z79.4 ; Acquired hypothyroidism E03.9 and Essential (primary) hypertension I10 [facility] [address] [facility] [id number] [address] [place] [address] Dec, Chronic pain G89.29 [facility] [address] [facility] [id number] [address] [place] [address] Nov, Chronic pain G89.29 [facility] [address] [facility] [id number] [address] [place] [address] Nov, [facility] [address] [facility] [id number] [address] [place] [address] Oct, Chronic pain G89.29 [facility] [address] [facility] [id number] [address] [place] [address] Oct, [facility] [address] [facility] [id number] [address] [place] [address] Sep, [facility] [address] [facility] [id number] [address] [place] [address] Sep, Type 2 diabetes mellitus wit h hyperglycemia E11.65 [facility] [address] [facility] [id number] [address] [place] [id number] 16 Sep, 2018 Chronic pain G89.29 [facility] [address] [address] Sep, [place] [address] [address] Sep, Type 2 diabetes mellitus wit h hyperglycemia E11.65 ; Irritable bowel syndrome with diarrhea K58.0 ; Gastroparesis K31.84 ; 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 and Dermatitis L30.9 [place] [address] [address] Aug, Chronic pain G89.29 [place] [address] [address] Jul, Chronic pain G89.29 [place] [address] [address] Jun, Type 2 diabetes mellitus wit h hyperglycemia E11.65 ; Neuropathy G62.9 ; Recurrent major depressive disorder, in partial remission F33.41 ; Chronic pain G89.29 and Hypertriglyceridemia E78.1 [place] [address] [address] Jun, Hypothyroid E03.9 [place] [address] [address] Jun, Major depressive disorder, r ecurrent episode, moderate F33.1 and Anxiety disorder, unspecified type F41.9 [place] [address] [address] Jun, [place] [address] [address] Jun, Type 2 diabetes mellitus wit h hyperglycemia E11.65 ; 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 ; Recurrent major depressive disorder, in partial remission F33.41 ; Hypothyroid E03.9 ; Candidal dermatitis B37.2 and Weakness generalized R53.1 [place] [address] [address] May, [facility] [address] [facility] [id number] [address] [place] [address] May, [facility] [address] [facility] [id number] [address] [place] [address] May, [facility] [address] [facility] [id number] [address] [place] [address] May, Generalized abdominal pain R 10.84 and Candidal dermatitis B37.2 [facility] [address] [facility] [id number] [address] [place] [id number] May, [facility] [address] [facility] [id number] [address] [place] [id number] May, [facility] [address] [facility] [id number] [address] [place] [address] May, Nodular radiologic density R 93.8 ; Weight loss, unintentional R63.4 and Pulmonary emphysema, unspecified emphysema type J43.9 [place] [address] [place] [id number] [address] [place] [address] May, Chronic pain G89.29 [place] [address] [place] [id number] [address] [place] [address] May, Syncope and collapse R55 ; C hronic fatigue R53.[address] lung screening R91.8 [place] [address] [place] [id number] [address] [place] [address] May, [place] [address] [place] [id number] [address] [place] [address] Apr, Chronic fatigue R53.82 ; Abn ormal chest CT R93.8 ; Elevated erythrocyte sedimentation rate R70.0 ; Hypothyroid E03.9 and Recurrent major depressive disorder, in partial remission F33.41 [place] [address] [facility] [id number] [address] [place] [address] Apr, Hypothyroid E03.9 [place] [address] [facility] [id number] [address] [place] [address] Apr, Depression F32.9 [place] [address] [facility] [id number] [address] [place] [address] Apr, [place] [address] [facility] [id number] [address] [place] [address] March, [place] [address] [facility] [id number] [address] [place] [address] March, Hypothyroid E03.9 [place] [address] [facility] [id number] [address] [place] [address] March, Diabetes mellitus E11.9 and Hypothyroid E03.9 [place] [address] [facility] [id number] [address] [place] [address] March, Diabetes mellitus E11.9 [place] [address] [place] [id number] [address] [place] [address] March, Hypothyroid E03.9 and Elevat ed liver enzymes R74.8 [place] [address] [facility] [id number] [address] [place] [address] March, Type 2 diabetes mellitus wit h hyperglycemia E11.65 ; 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 ; Pulmonary emphysema, unspecified emphysema type J43.9 ; Hypothyroid E03.9 ; Neuropathy G62.9 ; Mixed hyperlipidemia E78.2 ; Chronic pain G89.29 ; Gastroesophageal reflux disease with esophagitis K21.0 ; Irritable bowel syndrome with diarrhea K58.0 ; Overactive bladder N32.81 and Recurrent major depressive disorder, in partial remission F33.41 [place] [address] [facility] [id number] [address] [place] [address] Feb, Chronic pain G89.29 [place] [address] [place] [id number] [address] [place] [address] Feb, Type 2 diabetes mellitus wit h hyperglycemia E11.65 and Skin lesion of scalp L98.9 [place] [address] [place] [id number] [address] [place] [address] Feb, [place] [address] [facility] [id number] [address] [place] [address] Jan, Type 2 diabetes mellitus wit h [...] and Irritable bowel syndrome with diarrhea K58.0 [place] [address] [facility] [id number] [address] [place] [address] Jan, [place] [address] [place] [id number] [address] [place] [address] Jan, Controlled substance agreeme nt signed Z79.899 [place] [address] [place] [id number] [address] [place] [address] Dec, Type 2 diabetes mellitus wit h hyperglycemia E11.65 ; Controlled substance agreement signed Z79.899 ; 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 ; Essential (primary) hypertension I10 ; Hypothyroid E03.9 ; Neuropathy G62.9 ; Depression F32.9 ; Mixed hyperlipidemia E78.2 ; Irritable bowel syndrome with diarrhea K58.0 ; Gastroesophageal reflux disease with esophagitis K21.0 ; Thrombocytosis D47.3 ; Current non-adherence to medical treatment Z91.19 and Overweight (BMI 25.0-29.9) E66.3 [place] [address] [place] [id number] [address] [place] [address] Dec, Controlled substance agreeme nt signed Z79.899 [place] [address] [place] [id number] [address] [place] [address] Nov, Type 2 diabetes mellitus wit h hyperglycemia E11.65 and Current non- adherence to medical treatment Z91.19 [place] [address] [place] [id number] [address] [place] [address] Nov, [facility] [address] [id number] [address] [place] [address] Nov, Chronic pain G89.29 [facility] [address] [id number] [address] [place] [id number] Nov, [facility] [address] [facility] [id number] [address] [place] [address] Nov, Hypothyroid E03.9 [facility] [address] [id number] [address] [place] [id number] Nov, Hypothyroid E03.9 [facility] [address] [id number] [address] [place] [id number] Nov, Pulmonary emphysema, unspeci fied emphysema type J43.9 and Irritable bowel syndrome with diarrhea K58.0 [facility] [address] [facility] [id number] [address] [place] [id number] Oct, [facility] [address] [facility] [id number] [address] [place] [id number] Oct, [facility] [address] [id number] [address] [place] [phone] Oct, [facility] [address] [facility] [id number] [address] [place] [id number] Oct, [facility] [address] [facility] [id number] [address] [place] [address] Oct, Chronic pain G89.29 [facility] [address] [id number] [address] [place] [address] Oct, Diabetes mellitus E11.9 ; De pression F32.9 ; Mixed hyperlipidemia E78.2 ; Hypotension, unspecified hypotension type I95.9 ; Pulmonary emphysema, unspecified emphysema type J43.9 and Weight loss, unintentional R63.4 [facility] [address] [facility] [id number] [address] [place] [address] Oct, Chronic pain G89.29 [facility] [address] [place] [id number] [address] [place] [id number] Sep, Chronic pain G89.29 [facility] [address] [place] [id number] [place] [address] Sep, Hypothyroid E03.9 and Diabet es mellitus E11.9 [facility] [address] [place] [id number] [address] [place] [address] Aug, Type 2 diabetes mellitus wit h hyperglycemia E11.65 ; detention current use of insulin Z79.4 ; Essential (primary) hypertension I10 ; Hypothyroid E03.9 ; Neuropathy G62.9 ; Chronic pain G89.29 ; Mixed hy perlipidemia E78.2 and Encounter for immunization Z23 [facility] [address] [place] [id number] [address] [place] [address] Aug, Chronic pain G89.29 [place] [address] [address] Aug, Overactive bladder N32.81 ; Diabetes mellitus E11.9 and Chronic pain G89.29 [place] [address] [place] [id number] [address] [place] [address] Jul, [place] [address] [address] Jun, [place] [address] [address] Jun, [facility] [address] [place] [id number] [address] [place] [address] Jun, Hypothyroid E03.9 [facility] [address] [place] [id number] [address] [place] [address] Jun, Diabetes mellitus E11.9 ; Hy pothyroid E03.9 ; Neuropathy G62.9 ; Chronic pain G89.29 and Neck mass R22.1 [facility] [address] [place] [id number] [address] [place] [address] Apr, [facility] [address] [place] [id number] [address] [place] [address] Apr, Acute cystitis without hemat uria N30.00 [facility] [address] [place] [id number] [address] [place] [address] March, [facility] [address] [place] [id number] [address] [place] [address] March, [facility] [address] [address] March, Near syncope R55 [facility] [address] [address] Feb, [facility] [address] [address] Feb, Chronic pain G89.29 [place] [address] [address] Feb, [facility] [address] [place] [id number] [address] [place] [address] Feb, [facility] [address] [address] Jan, Chronic pain G89.29 [facility] [address] [address] Jan, [facility] [address] [address] Jan, [facility] [address] [place] [id number] [address] [place] [address] 14 Jan, 2017 Diabetes mellitus E11.9 ; Hy pothyroid E03.9 ; GERD (gastroesophageal reflux disease) K21.9 ; Insomnia G47.00 ; Functional diarrhea K59.1 ; Neuropathy G62.9 ; Depression F32.9 ; Chronic pain G89.29 ; Irritable bowel syndrome with diarrhea K58.0 ; Overactive bladder N32.81 ; Mixed hyperlipidemia E78.2 and Bronchitis J40 [facility] [address] [place] [id number] [address] [place] [address] Dec, [facility] [address] [facility] [id number] [address] [place] [address] Dec, [facility] [address] [facility] [id number] [address] [place] [address] Dec, [facility] [address] [facility] [id number] [address] [place] [id number] Dec, [facility] [address] [facility] [id number] [address] [place] [address] Dec, Chronic pain G89.29 [facility] [address] [facility] [id number] [address] [place] [address] Dec, [facility] [address] [place] [id number] [address] [place] [address] Dec, [facility] [address] [place] [id number] [address] [place] [address] Dec, Type 2 diabetes mellitus wit h foot ulcer E11.621 [facility] [address] [place] [id number] [address] [place] [address] 17 Dec, 2016 Type 2 diabetes mellitus wit h foot ulcer E11.621 [facility] [address] [place] [address] 14 Dec, 2016 HTN (hypertension) I10 ; Dep ression F32.9 ; Type 2 diabetes mellitus with foot ulcer E11.621 ; Functional diarrhea K59.1 ; Irritable bowel syndrome with diarrhea K58.0 ; Chronic pain G89.29 ; Insomnia G47.00 ; Overactive bladder N32.81 ; Mixed hyperlipidemia E78.2 ; Gastroesophageal reflux disease with esophagitis K21.0 and Acquired hypothyroidism E03.9 [facility] [address] [place] [id number] [address] [place] [address] Nov, [facility] [address] [place] [address] Oct, [place] [address] [address] Oct, [place] [address] [address] Oct, [place] [address] [address] Sep, Functional diarrhea K59.1 ; HTN (hypertension) I10 ; Diabetes mellitus E11.9 ; Depression F32.9 ; Overactive bladder N32.81 ; Mixed hyperlipidemia E78.2 ; Gastroesophageal reflux disease without esophagitis K21.9 ; Chronic pain G89.29 ; Insomnia G47.00 and Acquired hypothyroidism E03.9 [place] [address] [address] Sep, [place] [address] [address] Aug, Encounter for immunization Z 23 [place] [address] [address] 06 Aug, 2016 [place] [address] [address] Jul, [place] [address] [address] Jun, Type 2 diabetes mellitus wit hout complications E11.9 ; HTN (hypertension) I10 ; Hypothyroid E03.9 ; Neuropathy G62.9 ; Depression F32.9 ; Chronic pain G89.29 ; GERD (gastroesophageal reflux disease) K21.9 ; Insomnia G47.00 ; Overactive bladder N32.81 ; Mixed hyperlipidemia E78.2 ; Diarrhea of infectious origin A09 and Environmental allergies Z91.09 [place] [address] [place] [id number] [address] [place] [address] Apr, [place] [address] [address] March, Hypothyroidism, unspecified E03.9 and Mixed hyperlipidemia E78.2 [place] [address] [place] [id number] [address] [place] [address] March, Diabetes mellitus E11.9 ; HT N (hypertension) I10 ; Hypothyroid E03.9 ; Depression F32.9 ; Overactive bladder N32.81 ; Other chronic pain G89.29 ; Lumbago with sciatica, unspecified side M54.40 ; Environmental allergies Z91.09 and Gastroesophageal reflux disease, esophagitis presence not specified K21.9 [place] [address] [place] [id number] [address] [place] [address] March, [place] [address] [address] Jan, HTN (hypertension) I10 ; Hyp othyroid E03.9 ; Neuropathy G62.9 ; Diabetes mellitus E11.9 ; Chronic pain G89.29 ; GERD (gastroesophageal reflux disease) K21.9 ; Overactive bladder N32.81 and Depression F32.9 [place] [address] [place] [id number] [address] [place] [address] Dec, Ear pain, left H92.02 ; HTN (hypertension) I10 ; Hypothyroid E03.9 ; Neuropathy G62.9 ; Diabetes mellitus E11.9 ; Depression F32.9 ; GERD (gastroesophageal reflux disease) K21.9 ; Insomnia G47.00 and Overactive bladder N32.81 [place] [address] [place] [id number] [address] [place] [address] Nov, Overactive bladder N32.81 an d Chronic pain G89.29 [place] [address] [facility] [id number] [address] [place] [address] Nov, Kidney failure N19 [place] [address] [place] [id number] [address] [place] [id number] Nov, [place] [address] [address] [place] [id number] [address] [place] [id number] Nov, [place] [address] [id number] Nov, Diabetes mellitus E11.9 ; De pression F32.9 ; Chronic pain G89.29 ; GERD (gastroesophageal reflux disease) K21.9 ; Insomnia G47.00 ; HTN (hypertension) I10 ; Hypothyroid E03.9 ; COPD (chronic obstructive pulmonary disease) J44.9 ; Bladder incontinence R32 and Incontinence R32 [place] [address] [id number] Sep, Type 2 diabetes mellitus wit h foot ulcer E11.621 and Chromosomal abnormality, 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 [phone] Sep, [place] [address] [id number] Aug, [address] [id number] Aug, [place] [address] [phone] Aug, HTN (hypertension) I10 ; Enc ounter for immunization Z23 ; Hypothyroid E03.9 ; Neuropathy G62.9 ; Diabetes mellitus E11.9 ; Depression F32.9 ; Chronic pain G89.29 ; GERD (gastroesophageal reflux disease) K21.9 ; Insomnia G47.00 and COPD (chronic obstructive pulmonary disease) J44.9 [place] [address] [id number] Jun, [place] [address] [phone] Jun, [address] [phone] May, Essential hypertension, ivis gn 401.1 ; Unspecified hypothyroidism 244.9 ; Insomnia, unspecified 780.52 ; Shortness of breath 786.05 ; Depression 311 ; COPD (chronic obstructive pulmonary disease) 496 ; GERD (gastroesophageal reflux disease) 530.81 and Diabetes 1.5, 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 [facility] [address] [facility] [id number] [address] [place] [id number] May, [facility] [address] [facility] [id number] [address] [place] [id number] May, [facility] [address] [facility] [id number] [address] [place] [id number] May, Shortness of breath 786.05 ; Essential hypertension, benign 401.1 ; Diabetes mellitus 250.00 ; Hyperlipidemia 272.4 ; Hypothyroid 244.9 ; Insomnia 780.52 and Cough 786.2 [facility] [address] [facility] [id number] [address] [place] [id number] Apr, [facility] [address] [facility] [id number] [address] [place] [address] March, Shortness of breath 786.05 ; Nausea with vomiting 787.01 ; Essential hypertension, benign 401.1 ; Diabetes mellitus 250.00 ; Hyperlipidemia 272.4 and Hypothyroid 244.9 [facility] [address] [place] [id number] [address] [place] [address] Feb, [facility] [address] [facility] [id number] [address] [place] [id number] Feb, [facility] [address] [facility] [id number] [address] [place] [id number] Jan, [facility] [address] [facility] [id number] [address] [place] [id number] Jan, [facility] [address] [facility] [id number] [address] [place] [id number] Jan, [facility] [address] [facility] [id number] [address] [place] [id number] Jan, [facility] [address] [facility] [id number] [address] [place] [address] Jan, [facility] [address] [place] [place] [id number] [address] [place] [id number] Jan, [facility] [address] [id number] [address] [place] [address], [place] [address] Jan, [facility] [address] [id number] [address] [place] [address], [place] [address] Jan, [facility] [address] [id number] [address] [place] [address], [place] [address] Jan, [facility] [address] [id number] [address] [place] [address], [place] [address] Jan, [facility] [address] [id number] [address] [place] [address], [place] [address] Dec, 2014 [facility] [address] [id number] [address] [place] [address], [place] [address] Dec, 2014 [facility] [address] [id number] [address] [place] [address], [place] [address] Dec, 2014 [facility] [address] [id number] [address] [place] [address], [place] [address] Dec, 2014 [facility] [address] [id number] [address] [place] [address], [place] [address] Dec, 2014 [facility] [address] [id number] [address] [place] [address], [place] [address] Dec, 2014 [facility] [address] [id number] [address] [place] [address], [place] [address] Dec, 2014 [facility] [address] [id number] [address] [place] [id number] Dec, 2014 [facility] [address] [id number] [address] [place] [address], [place] [address] Dec, 2014 [facility] [address] [id number] [address] [place] [id number] Dec, 2014 [facility] [address] [id number] [address] [place] [id number] Oct, [facility] [address] [id number] [address] [place] [address], [place] [address] Oct, [facility] [address] [id number] [address] [place] [address], [place] [address] Oct, [facility] [address] [id number] [address] [place] [address], [place] [address] Oct, [facility] [address] [id number] [address] [place] [address], [place] [address] Oct, [facility] [address] [id number] [address] [place] [address], [place] [address] Oct, [facility] [address] [id number] [address] [place] [address], [place] [address] Oct, [facility] [address] [id number] [address] [place] [address], [place] [address] Oct, [facility] [address] [id number] [address] [place] [address], [place] [address] Oct, [facility] [address] [id number] [address] [place] [address], [place] [address] Oct, [facility] [address] [id number] [address] [place] [address], [place] [address] Oct, [facility] [address] [id number] [address] [place] [address], [place] [address] Oct, [facility] [address] [id number] [address] [place] [address], [place] [address] Oct, [facility] [address] [id number] [address] [place] [address], [place] [address] Oct, [facility] [address] [id number] [address] [place] [address], [place] [address] Sep, [facility] [address] [id number] [address] [place] [address], [place] [address] Sep, [facility] [address] [id number] [address] [place] [id number] Sep, [facility] [address] [id number] [address] [place] [address], [place] [address] Sep, [facility] [address] [id number] [address] [place] [id number] Sep, [facility] [address] [id number] [address] [place] [address], [place] [address] Sep, [facility] [address] [id number] [address] [place] [address], [place] [address] Sep, [facility] [address] [id number] [address] [place] [address], [place] [address] Sep, [facility] [address] [id number] [address] [place] [address], [place] [address] Sep, [facility] [address] [id number] [address] [place] [address], [place] [address] Aug, [facility] [address] [id number] [address] [place] [address], [place] [address] Aug, [facility] [address] [id number] [address] [place] [address] Aug, [facility] [address] [id number] [address] [place] [address], [place] [address] Aug, [facility] [address] [id number] [address] [place] [id number] 16 Aug, 2014 [facility] [address] [id number] [address] [place] [address] Aug, [facility] [address] [id number] [address] [place] [address], [place] [address] Aug, [facility] [address] [id number] [address] [place] [address] Aug, [facility] [address] [id number] [address] [place] [address], [place] [address] Aug, [facility] [address] [id number] [facility] [place] [address] 29 Jul, 2013 [facility] [address] [id number] [facility] [place] [address] 29 Jul, 2013 [facility] [address] [id number] [facility] [place] [address] Jul, 2013 [facility] [address] [id number] [facility] [place] [address] Jul, 2013 [facility] [address] [id number] [facility] [place] [address] Jul, 2013 [facility] [address] [id number] [address] [place] [address], [place] [address] Jul, 2013 [facility] [address] [id number] [address] [place] [address], [place] [address] Jul, 2013 [facility] [address] [id number] [address] [place] [address], [place] [address] Jul, 2013 [facility] [address] [id number] [address] [place] [address], [place] [address] Jul, [facility] [address] [id number] [address] [place] [address], [place] [address] Jul, [facility] [address] [id number] [address] [place] [address], [place] [address] Jun, [facility] [address] [id number] [address] [place] [address], [place] [address] Jun, [facility] [address] [id number] [address] [place] [address], [place] [address] Jun, [facility] [address] [id number] [address] [place] [address], [place] [address] Jun, [facility] [address] [id number] [address] [place] [address], [place] [address] Jun, [facility] [address] [id number] [address] [place] [address], [place] [address] Jun, [facility] [address] [id number] [facility] [place] [address] Jun, [facility] [address] [id number] [facility] [place] [address] Jun, [facility] [address] [id number] [facility] [place] [address] Jun, [facility] [address] [id number] [address] [place] [address], [place] [address] Jun, [facility] [address] [id number] [address] [place] [address], [place] [address] Jun, [facility] [address] [id number] [address] [place] [address], [place] [address] Jun, [facility] [address] [id number] [address] [place] [address], [place] [address] May, [facility] [address] [id number] [address] [place] [address], [place] [address] May, [facility] [address] [id number] [address] [place] [address], [place] [address] May, [facility] [address] [id number] [address] [place] [address], [place] [address] May, [facility] [address] [id number] [address] [place] [address], [place] [address] May, [facility] [address] [id number] [address] [place] [address], [place] [address] May, [facility] [address] [id number] [address] [place] [address], [place] [address] March, [facility] [address] [id number] [address] [place] [address], [place] [address] March, [facility] [address] [id number] [address] [place] [address], [place] [address] March, [facility] [address] [id number] [address] [place] [address], [place] [address] March, [facility] [address] [id number] [address] [place] [address], [place] [address] March, [facility] [address] [id number] [address] [place] [address], [place] [address] March, [facility] [address] [id number] [address] [place] [address], [place] [address] Feb, [facility] [address] [id number] [address] [place] [address], [place] [address] Feb, [facility] [address] [id number] [address] [place] [address], [place] [address] Feb, [facility] [address] [id number] [address] [place] [address], [place] [address] Feb, [facility] [address] [id number] [address] [place] [address], [place] [address] Jan, [facility] [address] [id number] [address] [place] [address], [place] [address] Jan, [facility] [address] [id number] [address] [place] [address], [place] [address] Jan, [facility] [address] [id number] [address] [place] [address], [place] [address] Jan, [facility] [address] [id number] [address] [place] [address], [place] [address] Jan, [facility] [address] [id number] [address] [place] [address], [place] [address] Jan, [facility] [address] [id number] [address] [place] [address], [place] [address] Jan, [facility] [address] [id number] [address] [place] [address], [place] [address] Jan, [facility] [address] [id number] [address] [place] [address], [place] [address] Jan, [facility] [address] [id number] [address] [place] [address], [place] [address] Jan, [facility] [address] [id number] [address] [place] [address], [place] [address] Jan, [facility] [address] [id number] [address] [place] [address], [place] [address] Jan, [facility] [address] [id number] [address] [place] [address], [place] [address] Dec, [facility] [address] [id number] [address] [place] [address], [place] [address] Dec, [facility] [address] [id number] [address] [place] [address], [place] [address] Dec, [facility] [address] [id number] [address] [place] [address], [place] [address] Dec, [facility] [address] [id number] [address] [place] [address], [place] [address] Dec, [facility] [address] [id number] [address] [place] [address], [place] [address] Dec, [facility] [address] [id number] [address] [place] [address], [place] [address] Nov, [facility] [address] [id number] [address] [place] [address], [place] [address] Nov, [facility] [address] [id number] [address] [place] [address], [place] [address] Oct, [facility] [address] [id number] [address] [place] [address], [place] [address] Oct, [facility] [address] [id number] [address] [place] [address], [place] [address] Oct, [facility] [address] [id number] [address] [place] [address], [place] [address] Oct, [facility] [address] [id number] [address] [place] [address], [place] [address] Oct, [facility] [address] [id number] [address] [place] [address], [place] [address] Oct, [facility] [address] [id number] [address] [place] [address], [place] [address] Sep, [facility] [address] [id number] [address] [place] [address], [place] [address] Sep, [facility] [address] [id number] [address] [place] [address], [place] [address] Sep, [facility] [address] [id number] [address] [place] [address], [place] [address] Sep, [facility] [address] [id number] [address] [place] [address], [place] [address] Aug, [facility] [address] [id number] [address] [place] [address], [place] [address] Aug, [facility] [address] [id number] [address] [place] [address], [place] [address] Aug, [facility] [address] [id number] [address] [place] [address], [place] [address] Jul, [facility] [address] [id number] [address] [place] [address], [place] [address] 14 Jul, 2013 [facility] [address] [id number] [address] [place] [address], [place] [address] Jul, [facility] [address] [id number] [address] [place] [address], [place] [address] Jun, [facility] [address] [id number] [address] [place] [address], [place] [address] Jun, [facility] [address] [id number] [address] [place] [address], [place] [address] Jun, [facility] [address] [id number] [address] [place] [address], [place] [address] Apr, [facility] [address] [id number] [address] [place] [address], [place] [address] Apr, [facility] [address] [id number] [address] [place] [address], [place] [address] March, [facility] [address] [id number] [address] [place] [address], [place] [address] March, [facility] [address] [id number] [address] [place] [address], [place] [address] March, [facility] [address] [id number] [address] [place] [address], [place] [address] March, [facility] [address] [id number] [address] [place] [address], [place] [address] Feb, [facility] [address] [id number] [address] [place] [address], [place] [address] Jan, [facility] [address] [id number] [address] [place] [address], [place] [address] Dec, [facility] [address] [id number] [address] [place] [address], [place] [address] Dec, [facility] [address] [id number] [address] [place] [address], [place] [address] Dec, [facility] [address] [id number] [address] [place] [address], [place] [address] Nov, [facility] [address] [id number] [address] [place] [address], [place] [address] Oct, [facility] [address] [id number] [address] [place] [address], [place] [address] Oct, [facility] [address] [id number] [address] [place] [address], [place] [address] Sep, [facility] [address] [id number] [address] [place] [address], [place] [address] Sep, [facility] [address] [id number] [address] [place] [address], [place] [address] Sep, [facility] [address] [id number] [address] [place] [address], [place] [address] Sep, [facility] [address] [id number] [address] [place] [address], [place] [address] Sep, [facility] [address] [id number] [address] [place] [address], [place] [address] Sep, [facility] [address] [id number] [address] [place] [address], [place] [address] Sep, [facility] [address] [id number] [address] [place] [address], [place] [address] Aug, [facility] [address] [id number] [address] [place] [address], [place] [address] Aug, [facility] [address] [id number] [address] [place] [address], [place] [address] Aug, [facility] [address] [id number] [address] [place] [address], [place] [address] Aug, [facility] [address] [id number] [address] [place] [address], [place] [address] Aug, [facility] [address] [id number] [address] [place] [id number] Aug, [facility] [address] [id number] [address] [place] [id number] Aug, [facility] [address] [id number] [address] [place] [id number] Aug, [facility] [address] [id number] [address] [place] [address], [place] [address] Jul, [facility] [address] [id number] [address] [place] [address], [place] [address] Jul, [facility] [address] [id number] [address] [place] [address], [place] [address] Jun, [facility] [address] [id number] [address] [place] [address], [place] [address] May, [facility] [address] [id number] [address] [place] [address], [place] [address] Apr, [facility] [address] [id number] [address] [place] [address], [place] [address] Apr, [facility] [address] [id number] [address] [place] [address], [place] [address] Apr, [facility] [address] [id number] [address] [place] [address], [place] [address] March, [facility] [address] [id number] [address] [place] [address], [place] [address] March, [facility] [address] [id number] [address] [place] [address], [place] [address] March, [facility] [address] [id number] [address] [place] [address], [place] [address] March, [facility] [address] [id number] [address] [place] [address], [place] [address] March, [facility] [address] [id number] [address] [place] [address], [place] [address] March, [facility] [address] [id number] [address] [place] [address], [place] [address] March, [facility] [address] [id number] [address] [place] [address], [place] [address] Jan, [facility] [address] [id number] [address] [place] [address], [place] [address] Jan, [facility] [address] [id number] [address] [place] [address], [place] [address] Jan, [facility] [address] [id number] [address] [place] [address], [place] [address] Jan, [facility] [address] [id number] [address] [place] [address], [place] [address] Jan, [facility] [address] [id number] [address] [place] [address], [place] [address] 08 Dec, 2011 [facility] [address] [id number] [address] [place] [address], [place] [address] Dec, [facility] [address] [id number] [address] [place] [address], [place] [address] Nov, [facility] [address] [id number] [address] [place] [address], [place] [address] Nov, [facility] [address] [id number] [address] [place] [address], [place] [address] Nov, [facility] [address] [id number] [address] [place] [address], [place] [address] Nov, [facility] [address] [id number] [address] [place] [address], [place] [address] Oct, [facility] [address] [id number] [address] [place] [address], [place] [address] Oct, [facility] [address] [id number] [address] [place] [address], [place] [address] 14 Sep, 2011 [facility] [address] [id number] [address] [place] [address], [place] [address] Sep, [facility] [address] [id number] [address] [place] [address], [place] [address] Sep, [facility] [address] [id number] [address] [place] [address], [place] [address] May, [facility] [address] [id number] [address] [place] [address], [place] [address] Nov, [facility] [address] [id number] [address] [place] [address], [place] [address] 29 Oct, 2010 [facility] [address] [id number] [address] [place] [address], [place] [address] 14 Oct, 2010 [facility] [address] [id number] [address] [place] [id number] 08 Oct, 2010 [facility] [address] [id number] [address] [place] [id number] 15 Sep, 2010 [facility] [address] [id number] [address] [place] [id number] Sep, [facility] [address] [id number] [address] [place] [id number] Aug, [facility] [address] [id number] [address] [place] [address] March, [facility] [address] [id number] [address] [place] [phone] Oct, [facility] [address] [id number] [address] [place] [phone] Oct, [facility] [address] [id number] [address] [place] [phone] Oct, [facility] [address] [id number] [address] [place] [id number] Oct, [facility] [address] [id number] [address] [place] [phone] Sep, [facility] [address] [id number] [address] [place] [phone] Sep, [facility] [address] [id number] [address] [place] [phone] Sep, [facility] [address] [id number] [address] [place] [phone] Aug, [facility] [address] [id number] [address] [place] [phone] 24 Aug, 2009 [facility] [address] [id number] [address] [place] [phone] Aug, [facility] [address] [id number] [address] [place] [phone] 10 Jan, 2009 IMMUNIZATIONS No Known Immunizations [...]
--- OUTSIDE RECORDS SUMMARY | 2020-06-13 16:43 | XMS REPORT ---
Author Author aJh Durant Doctor Organization [facility] Address Unknown Phone Unavailable Care Team Providers Care Paedodontist Name Role Phone Migration, Doctor Unavailable Unavailable PROBLEMS Type Condition ICD9-CM Code STT30-TL Code Onset Dates Condition S tatus SNOMED Code Problem Neuropathy G62.9 Active 912248643 Problem Chronic pain G89.29 Active 3917406 1 Problem Overactive bladder N32.81 Active 2 10590081 Problem Hypothyroid E03.9 Active 72942477 Problem Irritable bowel syndrome with diarrhea K58.0 Active 931100554 Problem USP current use of insulin Z79.4 Active 027908199 Problem Type 2 diabetes mellitus with hyperglycemia E11.65 Active 32570918 Problem Chronic obstructive pulmonary disease, unspecified COPD ty pe J44.9 Active 31586212 Problem Gastroesophageal reflux disease with esophagitis K 21.0 Active 184284804 Problem Major depressive disorder, recurrent, in full remission F33.42 Active 41090400 Problem Mixed hyperlipidemia E78.2 Active 986474472 Problem Essential (primary) hypertension I10 Active 73532417 Problem Anxiety disorder, unspecified type F41.9 Active 431037387 Problem Gastroparesis K31.84 Active 081845 006 Problem 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 Active [id number] ALLERGIES No Information ENCOUNTERS Encounter Location Date Diagnosis [facility] [address] [facility] [id number] [address] [place] [id number] Jun, Other chronic pain G89.29 [facility] [address] [facility] [id number] [address] [place] [address] Jun, [facility] [address] [facility] [id number] [address] [place] [address] Jun, Chronic pain G89.29 [facility] [address] [facility] [id number] [address] [place] [address] Jun, Neuropathy G62.9 [facility] [address] [place] [id number] [address] [place] [id number] Jun, Encounter for Medicare annua l wellness exam Z00.00 ; Type 2 diabetes mellitus with hyperglycemia E11.65 ; Mixed hyperlipidemia E78.2 ; Hypothyroid E03.9 ; Gastroesophageal reflux disease with esophagitis K21.0 ; Essential (primary) hypertension I10 ; Major depressive disorder, recurrent, in full remission F33.42 ; Chronic obstructive pulmonary disease, unspecified COPD type J44.9 ; Neuropathy G62.9 and Encounter for immunization Z23 [place] [address] [facility] [id number] [address] [place] [address] Jun, Irritable bowel syndrome wit h diarrhea K58.0 [place] [address] [facility] [id number] [address] [place] [address] May, Chronic pain G89.29 [place] [address] [place] [id number] [address] [place] [address] May, Type 2 diabetes mellitus wit h hyperglycemia E11.65 and Neuropathy G62.9 [place] [address] [facility] [id number] [address] [place] [address] May, Chronic pain G89.29 [place] [address] [facility] [id number] [address] [place] [address] Apr, Poison maryam dermatitis L23.7 [place] [address] [facility] [id number] [address] [place] [address] Apr, Chronic pain G89.29 [place] [address] [facility] [id number] [address] [place] [id number] March, Type 2 diabetes mellitus wit h hyperglycemia E11.65 [place] [address] [facility] [id number] [address] [place] [address] March, Chronic pain G89.29 [place] [address] [facility] [id number] [address] [place] [address] March, [address] [address] Feb, [facility] [address] [facility] [id number] [address] [place] [id number] 09 Feb, 2019 Other chronic pain G89.29 an d Chronic pain G89.29 [facility] [address] [facility] [id number] [address] [place] [id number] Jan, Mixed hyperlipidemia E78.2 [facility] [address] [facility] [id number] [address] [place] [id number] Jan, Chronic pain G89.29 [facility] [address] [facility] [id number] [address] [place] [id number] 08 Jan, 2019 Type 2 diabetes mellitus wit h hyperglycemia E11.65 ; Mixed hyperlipidemia E78.2 ; USP current use of insulin Z79.4 ; Acquired hypothyroidism E03.9 and Essential (primary) hypertension I10 [facility] [address] [facility] [id number] [address] [place] [id number] Dec, Chronic pain G89.29 [facility] [address] [facility] [id number] [address] [place] [address] Nov, Chronic pain G89.29 [facility] [address] [facility] [id number] [address] [place] [id number] Nov, [facility] [address] [facility] [id number] [address] [place] [id number] Oct, Chronic pain G89.29 [facility] [address] [facility] [id number] [address] [place] [id number] Oct, [facility] [address] [facility] [id number] [address] [place] [id number] Sep, [facility] [address] [facility] [id number] [address] [place] [id number] Sep, Type 2 diabetes mellitus wit h hyperglycemia E11.65 [facility] [address] [facility] [id number] [address] [place] [id number] 16 Sep, 2018 Chronic pain G89.29 [facility] [address] [address] Sep, [place] [address] [address] Sep, Type 2 diabetes mellitus wit h hyperglycemia E11.65 ; Irritable bowel syndrome with diarrhea K58.0 ; Gastroparesis K31.84 ; 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 and Dermatitis L30.9 [place] [address] [address] Aug, Chronic pain G89.29 [place] [address] [address] Jul, Chronic pain G89.29 [place] [address] [address] Jun, Type 2 diabetes mellitus wit h hyperglycemia E11.65 ; Neuropathy G62.9 ; Recurrent major depressive disorder, in partial remission F33.41 ; Chronic pain G89.29 and Hypertriglyceridemia E78.1 [place] [address] [address] Jun, Hypothyroid E03.9 [place] [address] [address] Jun, Major depressive disorder, r ecurrent episode, moderate F33.1 and Anxiety disorder, unspecified type F41.9 [place] [address] [address] Jun, [place] [address] [address] Jun, Type 2 diabetes mellitus wit h hyperglycemia E11.65 ; 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 designer current use of insulin Z79.4 ; Recurrent major depressive disorder, in partial remission F33.41 ; Hypothyroid E03.9 ; Candidal dermatitis B37.2 and Weakness generalized R53.1 [place] [address] [address] May, [facility] [address] [facility] [id number] [address] [place] [address] May, [facility] [address] [facility] [id number] [address] [place] [id number] May, [facility] [address] [facility] [id number] [address] [place] [address] May, Generalized abdominal pain R 10.84 and Candidal dermatitis B37.2 [facility] [address] [facility] [id number] [address] [place] [address] May, [facility] [address] [facility] [id number] [address] [place] [id number] May, [facility] [address] [facility] [id number] [address] [place] [address] May, Nodular radiologic density R 93.8 ; Weight loss, unintentional R63.4 and Pulmonary emphysema, unspecified emphysema type J43.9 [place] [address] [place] [id number] [address] [place] [id number] May, Chronic pain G89.29 [place] [address] [place] [id number] [address] [place] [id number] May, Syncope and collapse R55 ; C hronic fatigue R53.[address] lung screening R91.8 [place] [address] [place] [id number] [address] [place] [address] May, [place] [address] [place] [id number] [address] [place] [address] Apr, Chronic fatigue R53.82 ; Abn ormal chest CT R93.8 ; Elevated erythrocyte sedimentation rate R70.0 ; Hypothyroid E03.9 and Recurrent major depressive disorder, in partial remission F33.41 [place] [address] [facility] [id number] [address] [place] [id number] Apr, Hypothyroid E03.9 [place] [address] [facility] [id number] [address] [place] [address] Apr, Depression F32.9 [place] [address] [facility] [id number] [address] [place] [id number] Apr, [place] [address] [facility] [id number] [address] [place] [address] March, [place] [address] [facility] [id number] [address] [place] [id number] March, Hypothyroid E03.9 [place] [address] [facility] [id number] [address] [place] [id number] March, Diabetes mellitus E11.9 and Hypothyroid E03.9 [place] [address] [facility] [id number] [address] [place] [address] March, Diabetes mellitus E11.9 [place] [address] [place] [id number] [address] [place] [id number] March, Hypothyroid E03.9 and Elevat ed liver enzymes R74.8 [place] [address] [facility] [id number] [address] [place] [address] March, Type 2 diabetes mellitus wit h hyperglycemia E11.65 ; 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 designer current use of insulin Z79.4 ; Pulmonary emphysema, unspecified emphysema type J43.9 ; Hypothyroid E03.9 ; Neuropathy G62.9 ; Mixed hyperlipidemia E78.2 ; Chronic pain G89.29 ; Gastroesophageal reflux disease with esophagitis K21.0 ; Irritable bowel syndrome with diarrhea K58.0 ; Overactive bladder N32.81 and Recurrent major depressive disorder, in partial remission F33.41 [place] [address] [facility] [id number] [address] [place] [address] Feb, Chronic pain G89.29 [place] [address] [place] [id number] [address] [place] [id number] Feb, Type 2 diabetes mellitus wit h hyperglycemia E11.65 and Skin lesion of scalp L98.9 [place] [address] [place] [id number] [address] [place] [address] Feb, [place] [address] [facility] [id number] [address] [place] [id number] Jan, Type 2 diabetes mellitus wit h [...] and Irritable bowel syndrome with diarrhea K58.0 [place] [address] [facility] [id number] [address] [place] [address] Jan, [place] [address] [place] [id number] [address] [place] [address] Jan, Controlled substance agreeme nt signed Z79.899 [place] [address] [place] [id number] [address] [place] [address] Dec, Type 2 diabetes mellitus wit h [...] treatment Z91.19 and Overweight (BMI 25.0-29.9) E66.3 [place] [address] [place] [id number] [address] [place] [address] Dec, Controlled substance agreeme nt signed Z79.899 [place] [address] [place] [id number] [address] [place] [id number] Nov, Type 2 diabetes mellitus wit h hyperglycemia E11.65 and Current non- adherence to medical treatment Z91.19 [place] [address] [place] [id number] [address] [place] [address] Nov, [facility] [address] [id number] [address] [place] [address] Nov, Chronic pain G89.29 [facility] [address] [id number] [address] [place] [id number] Nov, [facility] [address] [facility] [id number] [address] [place] [id number] Nov, Hypothyroid E03.9 [facility] [address] [id number] [address] [place] [address] Nov, Hypothyroid E03.9 [facility] [address] [id number] [address] [place] [id number] Nov, Pulmonary emphysema, unspeci fied emphysema type J43.9 and Irritable bowel syndrome with diarrhea K58.0 [facility] [address] [facility] [id number] [address] [place] [id number] Oct, [facility] [address] [facility] [id number] [address] [place] [id number] Oct, [facility] [address] [id number] [address] [place] [id number] Oct, [facility] [address] [facility] [id number] [address] [place] [id number] Oct, [facility] [address] [facility] [id number] [address] [place] [id number] Oct, Chronic pain G89.29 [facility] [address] [id number] [address] [place] [address] Oct, Diabetes mellitus E11.9 ; De pression F32.9 ; Mixed hyperlipidemia E78.2 ; Hypotension, unspecified hypotension type I95.9 ; Pulmonary emphysema, unspecified emphysema type J43.9 and Weight loss, unintentional R63.4 [facility] [address] [facility] [id number] [address] [place] [address] Oct, Chronic pain G89.29 [facility] [address] [place] [id number] [address] [place] [id number] Sep, Chronic pain G89.29 [facility] [address] [place] [id number] [place] [address] Sep, Hypothyroid E03.9 and Diabet es mellitus E11.9 [facility] [address] [place] [id number] [address] [place] [address] Aug, Type 2 diabetes mellitus wit h hyperglycemia E11.65 ; USP current use of insulin Z79.4 ; Essential (primary) hypertension I10 ; Hypothyroid E03.9 ; Neuropathy G62.9 ; Chronic pain G89.29 ; Mixed hy perlipidemia E78.2 and Encounter for immunization Z23 [facility] [address] [place] [id number] [address] [place] [address] Aug, Chronic pain G89.29 [place] [address] [address] Aug, Overactive bladder N32.81 ; Diabetes mellitus E11.9 and Chronic pain G89.29 [place] [address] [place] [id number] [address] [place] [address] Jul, [place] [address] [address] Jun, [place] [address] [address] Jun, [facility] [address] [place] [id number] [address] [place] [address] Jun, Hypothyroid E03.9 [facility] [address] [place] [id number] [address] [place] [id number] Jun, Diabetes mellitus E11.9 ; Hy pothyroid E03.9 ; Neuropathy G62.9 ; Chronic pain G89.29 and Neck mass R22.1 [facility] [address] [place] [id number] [address] [place] [address] Apr, [facility] [address] [place] [id number] [address] [place] [address] Apr, Acute cystitis without hemat uria N30.00 [facility] [address] [place] [id number] [address] [place] [address] March, [facility] [address] [place] [id number] [address] [place] [address] March, [facility] [address] [address] March, Near syncope R55 [facility] [address] [address] Feb, [facility] [address] [address] Feb, Chronic pain G89.29 [place] [address] [address] Feb, [facility] [address] [place] [id number] [address] [place] [address] Feb, [facility] [address] [address] Jan, Chronic pain G89.29 [facility] [address] [address] Jan, [facility] [address] [address] Jan, [facility] [address] [place] [id number] [address] [place] [address] 14 Jan, 2017 Diabetes mellitus E11.9 ; Hy pothyroid E03.9 ; GERD (gastroesophageal reflux disease) K21.9 ; Insomnia G47.00 ; Functional diarrhea 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 ; Neuropathy G62.9 ; Depression F32.9 ; Chronic pain G89.29 ; Irritable bowel syndrome with diarrhea K58.0 ; Overactive bladder N32.81 ; Mixed hyperlipidemia E78.2 and Bronchitis J40 [facility] [address] [place] [id number] [address] [place] [id number] Dec, [facility] [address] [facility] [id number] [address] [place] [address] Dec, [facility] [address] [facility] [id number] [address] [place] [id number] Dec, [facility] [address] [facility] [id number] [address] [place] [address] Dec, [facility] [address] [facility] [id number] [address] [place] [address] Dec, Chronic pain G89.29 [facility] [address] [facility] [id number] [address] [place] [id number] Dec, [facility] [address] [place] [id number] [address] [place] [address] Dec, [facility] [address] [place] [id number] [address] [place] [address] Dec, Type 2 diabetes mellitus wit h foot ulcer E11.621 [facility] [address] [place] [id number] [address] [place] [id number] 17 Dec, 2016 Type 2 diabetes mellitus wit h foot ulcer E11.621 [facility] [id number] [place] [address] 14 Dec, 2016 HTN (hypertension) I10 ; Dep ression F32.9 ; Type 2 diabetes mellitus with foot ulcer E11.621 ; Functional diarrhea K59.1 ; Irritable bowel syndrome with diarrhea K58.0 ; Chronic pain G89.29 ; Insomnia G47.00 ; Overactive bladder N32.81 ; Mixed hyperlipidemia E78.2 ; Gastroesophageal reflux disease with esophagitis K21.0 and Acquired hypothyroidism E03.9 [facility] [address] [place] [id number] [address] [place] [address] Nov, [facility] [address] [place] [address] Oct, [place] [address] [address] Oct, [place] [address] [address] Oct, [place] [address] [address] Sep, Functional diarrhea K59.1 ; HTN (hypertension) I10 ; Diabetes mellitus E11.9 ; Depression F32.9 ; Overactive bladder N32.81 ; Mixed hyperlipidemia E78.2 ; Gastroesophageal reflux disease without esophagitis K21.9 ; Chronic pain G89.29 ; Insomnia G47.00 and Acquired hypothyroidism E03.9 [place] [address] [address] Sep, [place] [address] [address] Aug, Encounter for immunization Z 23 [place] [address] [address] 06 Aug, 2016 [place] [address] [address] Jul, [place] [address] [address] Jun, Type 2 diabetes mellitus wit hout complications E11.9 ; HTN (hypertension) I10 ; Hypothyroid E03.9 ; Neuropathy G62.9 ; Depression F32.9 ; Chronic pain G89.29 ; GERD (gastroesophageal reflux disease) K21.9 ; Insomnia G47.00 ; Overactive bladder N32.81 ; Mixed hyperlipidemia E78.2 ; Diarrhea of infectious origin A09 and Environmental allergies Z91.09 [place] [address] [place] [id number] [address] [place] [address] Apr, [place] [address] [address] March, Hypothyroidism, unspecified E03.9 and Mixed hyperlipidemia E78.2 [place] [address] [place] [id number] [address] [place] [address] March, Diabetes mellitus E11.9 ; HT N (hypertension) I10 ; Hypothyroid E03.9 ; Depression F32.9 ; Overactive bladder N32.81 ; Other chronic pain G89.29 ; Lumbago with sciatica, unspecified side M54.40 ; Environmental allergies Z91.09 and Gastroesophageal reflux disease, esophagitis presence not specified K21.9 [place] [address] [place] [id number] [address] [place] [address] March, [place] [address] [address] Jan, HTN (hypertension) I10 ; Hyp othyroid E03.9 ; Neuropathy G62.9 ; Diabetes mellitus E11.9 ; Chronic pain G89.29 ; GERD (gastroesophageal reflux disease) K21.9 ; Overactive bladder N32.81 and Depression F32.9 [place] [address] [place] [id number] [address] [place] [address] Dec, Ear pain, left H92.02 ; HTN (hypertension) I10 ; Hypothyroid E03.9 ; Neuropathy G62.9 ; Diabetes mellitus E11.9 ; Depression F32.9 ; GERD (gastroesophageal reflux disease) K21.9 ; Insomnia G47.00 and Overactive bladder N32.81 [place] [address] [place] [id number] [address] [place] [address] Nov, Overactive bladder N32.81 an d Chronic pain G89.29 [place] [address] [facility] [id number] [address] [place] [address] Nov, Kidney failure N19 [place] [address] [place] [id number] [address] [place] [address] Nov, [place] [address] [place] [id number] [address] [place] [address] Nov, [place] [address] [address] Nov, Diabetes mellitus E11.9 ; De pression F32.9 ; Chronic pain G89.29 ; GERD (gastroesophageal reflux disease) K21.9 ; Insomnia G47.00 ; HTN (hypertension) I10 ; Hypothyroid E03.9 ; COPD (chronic obstructive pulmonary disease) J44.9 ; Bladder incontinence R32 and Incontinence R32 [place] [address] [address] Sep, Type 2 diabetes mellitus wit h foot ulcer E11.621 and Chromosomal abnormality, 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 [address] Sep, [place] [address] [address] Aug, [address] [address] Aug, [place] [address] [address] Aug, HTN (hypertension) I10 ; Enc ounter for immunization Z23 ; Hypothyroid E03.9 ; Neuropathy G62.9 ; Diabetes mellitus E11.9 ; Depression F32.9 ; Chronic pain G89.29 ; GERD (gastroesophageal reflux disease) K21.9 ; Insomnia G47.00 and COPD (chronic obstructive pulmonary disease) J44.9 [place] [address] [address] Jun, [place] [address] [address] Jun, [address] [address] May, Essential hypertension, ivis gn 401.1 ; Unspecified hypothyroidism 244.9 ; Insomnia, unspecified 780.52 ; Shortness of breath 786.05 ; Depression 311 ; COPD (chronic obstructive pulmonary disease) 496 ; GERD (gastroesophageal reflux disease) 530.81 and Diabetes 1.5, 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 [facility] [address] [facility] [id number] [address] [place] [id number] May, [facility] [address] [facility] [id number] [address] [place] [id number] May, [facility] [address] [facility] [id number] [address] [place] [id number] May, Shortness of breath 786.05 ; Essential hypertension, benign 401.1 ; Diabetes mellitus 250.00 ; Hyperlipidemia 272.4 ; Hypothyroid 244.9 ; Insomnia 780.52 and Cough 786.2 [facility] [address] [facility] [id number] [address] [place] [id number] Apr, [facility] [address] [facility] [id number] [address] [place] [id number] March, Shortness of breath 786.05 ; Nausea with vomiting 787.01 ; Essential hypertension, benign 401.1 ; Diabetes mellitus 250.00 ; Hyperlipidemia 272.4 and Hypothyroid 244.9 [facility] [address] [place] [id number] [address] [place] [id number] Feb, [facility] [address] [facility] [id number] [address] [place] [id number] Feb, [facility] [address] [facility] [id number] [address] [place] [id number] Jan, [facility] [address] [facility] [id number] [address] [place] [id number] Jan, [facility] [address] [facility] [id number] [address] [place] [id number] Jan, [facility] [address] [facility] [id number] [address] [place] [id number] Jan, [facility] [address] [facility] [id number] [address] [place] [id number] Jan, [facility] [address] [place] [id number] [address] [place] [id number] Jan, [facility] [address] [id number] [address] [place] [address], [place] [id number] Jan, [facility] [address] [id number] [address] [place] [address], [place] [address] Jan, [facility] [address] [id number] [address] [place] [address], [place] [address] Jan, [facility] [address] [id number] [address] [place] [address], [place] [address] Jan, [facility] [address] [id number] [address] [place] [address], [place] [address] Dec, 2014 [facility] [address] [id number] [address] [place] [address], [place] [id number] Dec, 2014 [facility] [address] [id number] [address] [place] [address], [place] [address] Dec, 2014 [facility] [address] [id number] [address] [place] [address], [place] [address] Dec, 2014 [facility] [address] [id number] [address] [place] [address], [place] [address] Dec, 2014 [facility] [address] [id number] [address] [place] [address], [place] [address] Dec, 2014 [facility] [address] [id number] [address] [place] [address], [place] [address] Dec, 2014 [facility] [address] [id number] [address] [place] [id number] Dec, 2014 [facility] [address] [id number] [address] [place] [address], [place] [address] Dec, 2014 [facility] [address] [id number] [address] [place] [id number] Dec, 2014 [facility] [address] [id number] [address] [place] [id number] Oct, [facility] [address] [id number] [address] [place] [address], [place] [address] Oct, [facility] [address] [id number] [address] [place] [address], [place] [address] Oct, [facility] [address] [id number] [address] [place] [address], [place] [id number] Oct, [facility] [address] [id number] [address] [place] [address], [place] [address] Oct, [facility] [address] [id number] [address] [place] [address], [place] [id number] Oct, [facility] [address] [id number] [address] [place] [address], [place] [id number] Oct, [facility] [address] [id number] [address] [place] [address], [place] [id number] Oct, [facility] [address] [id number] [address] [place] [address], [place] [address] Oct, [facility] [address] [id number] [address] [place] [address], [place] [address] Oct, [facility] [address] [id number] [address] [place] [address], [place] [address] Oct, [facility] [address] [id number] [address] [place] [address], [place] [address] Oct, [facility] [address] [id number] [address] [place] [address], [place] [id number] Oct, [facility] [address] [id number] [address] [place] [address], [place] [address] Oct, [facility] [address] [id number] [address] [place] [address], [place] [id number] Sep, [facility] [address] [id number] [address] [place] [address], [place] [id number] Sep, [facility] [address] [id number] [address] [place] [id number] Sep, [facility] [address] [id number] [address] [place] [address], [place] [address] Sep, [facility] [address] [id number] [address] [place] [id number] Sep, [facility] [address] [id number] [address] [place] [address], [place] [id number] Sep, [facility] [address] [id number] [address] [place] [address], [place] [address] Sep, [facility] [address] [id number] [address] [place] [address], [place] [address] Sep, [facility] [address] [id number] [address] [place] [address], [place] [address] Sep, [facility] [address] [id number] [address] [place] [address], [place] [address] Aug, [facility] [address] [id number] [address] [place] [address], [place] [id number] Aug, [facility] [address] [id number] [address] [place] [id number] Aug, [facility] [address] [id number] [address] [place] [address], [place] [address] Aug, [facility] [address] [id number] [address] [place] [id number] 16 Aug, 2014 [facility] [address] [id number] [address] [place] [id number] Aug, [facility] [address] [id number] [address] [place] [address], [place] [address] Aug, [facility] [address] [id number] [address] [place] [id number] Aug, [facility] [address] [id number] [address] [place] [address], [place] [address] Aug, [facility] [address] [id number] [address] [place] [id number] 29 Jul, 2013 [facility] [address] [id number] [facility] [place] [address] 29 Jul, 2013 [facility] [address] [id number] [address] [place] [address] Jul, 2013 [facility] [address] [id number] [facility] [place] [address] Jul, 2013 [facility] [address] [id number] [address] [place] [address] Jul, 2013 [facility] [address] [id number] [address] [place] [address], [place] [address] Jul, 2013 [facility] [address] [id number] [address] [place] [address], [place] [address] Jul, 2013 [facility] [address] [id number] [address] [place] [address], [place] [address] Jul, 2013 [facility] [address] [id number] [address] [place] [address], [place] [id number] Jul, [facility] [address] [id number] [address] [place] [address], [place] [id number] Jul, [facility] [address] [id number] [address] [place] [address], [place] [address] Jun, [facility] [address] [id number] [address] [place] [address], [place] [address] Jun, [facility] [address] [id number] [address] [place] [address], [place] [id number] Jun, [facility] [address] [id number] [address] [place] [address], [place] [id number] Jun, [facility] [address] [id number] [address] [place] [address], [place] [address] Jun, [facility] [address] [id number] [address] [place] [address], [place] [id number] Jun, [facility] [address] [id number] [facility] [place] [address] Jun, [facility] [address] [id number] [address] [place] [address] Jun, [facility] [address] [id number] [address] [place] [address] Jun, [facility] [address] [id number] [address] [place] [address], [place] [address] Jun, [facility] [address] [id number] [address] [place] [address], [place] [address] Jun, [facility] [address] [id number] [address] [place] [address], [place] [address] Jun, [facility] [address] [id number] [address] [place] [address], [place] [address] May, [facility] [address] [id number] [address] [place] [address], [place] [address] May, [facility] [address] [id number] [address] [place] [address], [place] [address] May, [facility] [address] [id number] [address] [place] [address], [place] [address] May, [facility] [address] [id number] [address] [place] [address], [place] [address] May, [facility] [address] [id number] [address] [place] [address], [place] [id number] May, [facility] [address] [id number] [address] [place] [address], [place] [id number] March, [facility] [address] [id number] [address] [place] [address], [place] [address] March, [facility] [address] [id number] [address] [place] [address], [place] [address] March, [facility] [address] [id number] [address] [place] [address], [place] [address] March, [facility] [address] [id number] [address] [place] [address], [place] [address] March, [facility] [address] [id number] [address] [place] [address], [place] [address] March, [facility] [address] [id number] [address] [place] [address], [place] [address] Feb, [facility] [address] [id number] [address] [place] [address], [place] [address] Feb, [facility] [address] [id number] [address] [place] [address], [place] [id number] Feb, [facility] [address] [id number] [address] [place] [address], [place] [address] Feb, [facility] [address] [id number] [address] [place] [address], [place] [id number] Jan, [facility] [address] [id number] [address] [place] [address], [place] [id number] Jan, [facility] [address] [id number] [address] [place] [address], [place] [id number] Jan, [facility] [address] [id number] [address] [place] [address], [place] [address] Jan, [facility] [address] [id number] [address] [place] [address], [place] [address] Jan, [facility] [address] [id number] [address] [place] [address], [place] [id number] Jan, [facility] [address] [id number] [address] [place] [address], [place] [id number] Jan, [facility] [address] [id number] [address] [place] [address], [place] [id number] Jan, [facility] [address] [id number] [address] [place] [address], [place] [address] Jan, [facility] [address] [id number] [address] [place] [address], [place] [address] Jan, [facility] [address] [id number] [address] [place] [address], [place] [id number] Jan, [facility] [address] [id number] [address] [place] [address], [place] [address] Jan, [facility] [address] [id number] [address] [place] [address], [place] [address] Dec, [facility] [address] [id number] [address] [place] [address], [place] [address] Dec, [facility] [address] [id number] [address] [place] [address], [place] [address] Dec, [facility] [address] [id number] [address] [place] [address], [place] [id number] Dec, [facility] [address] [id number] [address] [place] [address], [place] [address] Dec, [facility] [address] [id number] [address] [place] [address], [place] [address] Dec, [facility] [address] [id number] [address] [place] [address], [place] [address] Nov, [facility] [address] [id number] [address] [place] [address], [place] [address] Nov, [facility] [address] [id number] [address] [place] [address], [place] [address] Oct, [facility] [address] [id number] [address] [place] [address], [place] [address] Oct, [facility] [address] [id number] [address] [place] [address], [place] [id number] Oct, [facility] [address] [id number] [address] [place] [address], [place] [address] Oct, [facility] [address] [id number] [address] [place] [address], [place] [id number] Oct, [facility] [address] [id number] [address] [place] [address], [place] [id number] Oct, [facility] [address] [id number] [address] [place] [address], [place] [id number] Sep, [facility] [address] [id number] [address] [place] [address], [place] [id number] Sep, [facility] [address] [id number] [address] [place] [address], [place] [address] Sep, [facility] [address] [id number] [address] [place] [address], [place] [id number] Sep, [facility] [address] [id number] [address] [place] [address], [place] [id number] Aug, [facility] [address] [id number] [address] [place] [address], [place] [address] Aug, [facility] [address] [id number] [address] [place] [address], [place] [address] Aug, [facility] [address] [id number] [address] [place] [address], [place] [id number] Jul, [facility] [address] [id number] [address] [place] [address], [place] [id number] 14 Jul, 2013 [facility] [address] [id number] [address] [place] [address], [place] [id number] Jul, [facility] [address] [id number] [address] [place] [address], [place] [address] Jun, [facility] [address] [id number] [address] [place] [address], [place] [address] Jun, [facility] [address] [id number] [address] [place] [address], [place] [address] Jun, [facility] [address] [id number] [address] [place] [address], [place] [id number] Apr, [facility] [address] [id number] [address] [place] [address], [place] [id number] Apr, [facility] [address] [id number] [address] [place] [address], [place] [id number] March, [facility] [address] [id number] [address] [place] [address], [place] [id number] March, [facility] [address] [id number] [address] [place] [address], [place] [id number] March, [facility] [address] [id number] [address] [place] [address], [place] [id number] March, [facility] [address] [id number] [address] [place] [address], [place] [id number] Feb, [facility] [address] [id number] [address] [place] [address], [place] [id number] Jan, [facility] [address] [id number] [address] [place] [address], [place] [id number] Dec, [facility] [address] [id number] [address] [place] [address], [place] [address] Dec, [facility] [address] [id number] [address] [place] [address], [place] [address] Dec, [facility] [address] [id number] [address] [place] [address], [place] [id number] Nov, [facility] [address] [id number] [address] [place] [address], [place] [id number] Oct, [facility] [address] [id number] [address] [place] [address], [place] [address] Oct, [facility] [address] [id number] [address] [place] [address], [place] [id number] Sep, [facility] [address] [id number] [address] [place] [address], [place] [address] Sep, [facility] [address] [id number] [address] [place] [address], [place] [address] Sep, [facility] [address] [id number] [address] [place] [address], [place] [address] Sep, [facility] [address] [id number] [address] [place] [address], [place] [id number] Sep, [facility] [address] [id number] [address] [place] [address], [place] [id number] Sep, [facility] [address] [id number] [address] [place] [address], [place] [id number] Sep, [facility] [address] [id number] [address] [place] [address], [place] [id number] Aug, [facility] [address] [id number] [address] [place] [address], [place] [id number] Aug, [facility] [address] [id number] [address] [place] [address], [place] [id number] Aug, [facility] [address] [id number] [address] [place] [address], [place] [id number] Aug, [facility] [address] [id number] [address] [place] [address], [place] [id number] Aug, [facility] [address] [id number] [address] [place] [id number] Aug, [facility] [address] [id number] [address] [place] [id number] Aug, [facility] [address] [id number] [address] [place] [id number] Aug, [facility] [address] [id number] [address] [place] [address], [place] [id number] Jul, [facility] [address] [id number] [address] [place] [address], [place] [id number] Jul, [facility] [address] [id number] [address] [place] [address], [place] [id number] Jun, [facility] [address] [id number] [address] [place] [address], [place] [id number] May, [facility] [address] [id number] [address] [place] [address], [place] [id number] Apr, [facility] [address] [id number] [address] [place] [address], [place] [id number] Apr, [facility] [address] [id number] [address] [place] [address], [place] [id number] Apr, [facility] [address] [id number] [address] [place] [address], [place] [id number] March, [facility] [address] [id number] [address] [place] [address], [place] [id number] March, [facility] [address] [id number] [address] [place] [address], [place] [id number] March, [facility] [address] [id number] [address] [place] [address], [place] [id number] March, [facility] [address] [id number] [address] [place] [address], [place] [id number] March, [facility] [address] [id number] [address] [place] [address], [place] [id number] March, [facility] [address] [id number] [address] [place] [address], [place] [id number] March, [facility] [address] [id number] [address] [place] [address], [place] [id number] Jan, [facility] [address] [id number] [address] [place] [address], [place] [id number] Jan, [facility] [address] [id number] [address] [place] [address], [place] [id number] Jan, [facility] [address] [id number] [address] [place] [address], [place] [id number] Jan, [facility] [address] [id number] [address] [place] [address], [place] [id number] Jan, [facility] [address] [id number] [address] [place] [address], [place] [id number] 08 Dec, 2011 [facility] [address] [id number] [address] [place] [address], [place] [id number] Dec, [facility] [address] [id number] [address] [place] [address], [place] [id number] Nov, [facility] [address] [id number] [address] [place] [address], [place] [id number] Nov, [facility] [address] [id number] [address] [place] [address], [place] [id number] Nov, [facility] [address] [id number] [address] [place] [address], [place] [id number] Nov, [facility] [address] [id number] [address] [place] [address], [place] [id number] Oct, [facility] [address] [id number] [address] [place] [address], [place] [id number] Oct, [facility] [address] [id number] [address] [place] [address], [place] [id number] 14 Sep, 2011 [facility] [address] [id number] [address] [place] [address], [place] [id number] Sep, [facility] [address] [id number] [address] [place] [address], [place] [id number] Sep, [facility] [address] [id number] [address] [place] [address], [place] [id number] May, [facility] [address] [id number] [address] [place] [address], [place] [id number] Nov, [facility] [address] [id number] [address] [place] [address], [place] [id number] 29 Oct, 2010 [facility] [address] [id number] [address] [place] [address], [place] [id number] 14 Oct, 2010 [facility] [address] [id number] [address] [place] [id number] 08 Oct, 2010 [facility] [address] [id number] [address] [place] [id number] 15 Sep, 2010 [facility] [address] [id number] [address] [place] [id number] Sep, [facility] [address] [id number] [address] [place] [address] [id number] Aug, [facility] [address] [id number] [address] [place] [id number] March, [facility] [address] [id number] [address] [place] [id number] Oct, [facility] [address] [id number] [address] [place] [id number] Oct, [facility] [address] [id number] [address] [place] [id number] Oct, [facility] [address] [id number] [address] [place] [id number] Oct, [facility] [address] [id number] [address] [place] [id number] Sep, [facility] [address] [id number] [address] [place] [id number] Sep, [facility] [address] [id number] [address] [place] [id number] Sep, [facility] [address] [id number] [address] [place] [id number] Aug, [facility] [address] [id number] [address] [place] [id number] 24 Aug, 2009 [facility] [address] [id number] [address] [place] [id number] Aug, [facility] [address] [id number] [address] [place] [id number] 10 Jan, 2009 IMMUNIZATIONS No Known Immunizations [...]
--- OUTSIDE RECORDS SUMMARY | 2020-06-13 16:43 | XMS REPORT ---
Author Author Jah Durant Doctor Organization [facility] Address Unknown Phone Unavailable Care Team Providers Care Real Estate Professional Name Role Phone Migration, Doctor Unavailable Unavailable PROBLEMS Type Condition ICD9-CM Code ZOT94-AF Code Onset Dates Condition S tatus SNOMED Code Problem Neuropathy G62.9 Active 698180970 Problem Chronic pain G89.29 Active 4112139 1 Problem Overactive bladder N32.81 Active 2 46852863 Problem Hypothyroid E03.9 Active 04316493 Problem Irritable bowel syndrome with diarrhea K58.0 Active 002603188 Problem detention current use of insulin Z79.4 Active 331350025 Problem Type 2 diabetes mellitus with hyperglycemia E11.65 Active 85988049 Problem Chronic obstructive pulmonary disease, unspecified COPD ty pe J44.9 Active 14158187 Problem Gastroesophageal reflux disease with esophagitis K 21.0 Active 941155345 Problem Major depressive disorder, recurrent, in full remission F33.42 Active 48168752 Problem Mixed hyperlipidemia E78.2 Active 401723570 Problem Essential (primary) hypertension I10 Active 64075800 Problem Anxiety disorder, unspecified type F41.9 Active 205164005 Problem Gastroparesis K31.84 Active 617947 006 Problem 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 Active 553187657 ALLERGIES No Information ENCOUNTERS Encounter Location Date Diagnosis [facility] [address] [facility] [id number] [address] [place] [id number] Jun, Other chronic pain G89.29 [facility] [address] [facility] [id number] [address] [place] [address] Jun, [facility] [address] [facility] [id number] [address] [place] [address] Jun, Chronic pain G89.29 [facility] [address] [facility] [id number] [address] [place] [address] Jun, Neuropathy G62.9 [facility] [address] [place] [id number] [address] [place] [address] Jun, Encounter for Medicare annua l wellness exam Z00.00 ; Type 2 diabetes mellitus with hyperglycemia E11.65 ; Mixed hyperlipidemia E78.2 ; Hypothyroid E03.9 ; Gastroesophageal reflux disease with esophagitis K21.0 ; Essential (primary) hypertension I10 ; Major depressive disorder, recurrent, in full remission F33.42 ; Chronic obstructive pulmonary disease, unspecified COPD type J44.9 ; Neuropathy G62.9 and Encounter for immunization Z23 [place] [address] [facility] [id number] [address] [place] [address] Jun, Irritable bowel syndrome wit h diarrhea K58.0 [place] [address] [facility] [id number] [address] [place] [address] May, Chronic pain G89.29 [place] [address] [place] [id number] [address] [place] [address] May, Type 2 diabetes mellitus wit h hyperglycemia E11.65 and Neuropathy G62.9 [place] [address] [facility] [id number] [address] [place] [address] May, Chronic pain G89.29 [place] [address] [facility] [id number] [address] [place] [address] Apr, Poison maryam dermatitis L23.7 [place] [address] [facility] [id number] [address] [place] [address] Apr, Chronic pain G89.29 [place] [address] [facility] [id number] [address] [place] [address] March, Type 2 diabetes mellitus wit h hyperglycemia E11.65 [place] [address] [facility] [id number] [address] [place] [address] March, Chronic pain G89.29 [place] [address] [facility] [id number] [address] [place] [address] March, [address] [address] Feb, [facility] [address] [facility] [id number] [address] [place] [address] 09 Feb, 2019 Other chronic pain G89.29 an d Chronic pain G89.29 [facility] [address] [facility] [id number] [address] [place] [address] Jan, Mixed hyperlipidemia E78.2 [facility] [address] [facility] [id number] [address] [place] [address] Jan, Chronic pain G89.29 [facility] [address] [facility] [id number] [address] [place] [address] 08 Jan, 2019 Type 2 diabetes mellitus wit h hyperglycemia E11.65 ; Mixed hyperlipidemia E78.2 ; detention current use of insulin Z79.4 ; Acquired hypothyroidism E03.9 and Essential (primary) hypertension I10 [facility] [address] [facility] [id number] [address] [place] [address] Dec, Chronic pain G89.29 [facility] [address] [facility] [id number] [address] [place] [address] Nov, Chronic pain G89.29 [facility] [address] [facility] [id number] [address] [place] [address] Nov, [facility] [address] [facility] [id number] [address] [place] [address] Oct, Chronic pain G89.29 [facility] [address] [facility] [id number] [address] [place] [address] Oct, [facility] [address] [facility] [id number] [address] [place] [address] Sep, [facility] [address] [facility] [id number] [address] [place] [address] Sep, Type 2 diabetes mellitus wit h hyperglycemia E11.65 [facility] [address] [facility] [id number] [address] [place] [address] 16 Sep, 2018 Chronic pain G89.29 [facility] [address] [address] Sep, [place] [address] [address] Sep, Type 2 diabetes mellitus wit h hyperglycemia E11.65 ; Irritable bowel syndrome with diarrhea K58.0 ; Gastroparesis K31.84 ; 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 and Dermatitis L30.9 [place] [address] [address] Aug, Chronic pain G89.29 [place] [address] [address] Jul, Chronic pain G89.29 [place] [address] [address] Jun, Type 2 diabetes mellitus wit h hyperglycemia E11.65 ; Neuropathy G62.9 ; Recurrent major depressive disorder, in partial remission F33.41 ; Chronic pain G89.29 and Hypertriglyceridemia E78.1 [place] [address] [address] Jun, Hypothyroid E03.9 [place] [address] [address] Jun, Major depressive disorder, r ecurrent episode, moderate F33.1 and Anxiety disorder, unspecified type F41.9 [place] [address] [address] Jun, [place] [address] [address] Jun, Type 2 diabetes mellitus wit h hyperglycemia E11.65 ; 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.4 ; Recurrent major depressive disorder, in partial remission F33.41 ; Hypothyroid E03.9 ; Candidal dermatitis B37.2 and Weakness generalized R53.1 [place] [address] [address] May, [facility] [address] [facility] [id number] [address] [place] [address] May, [facility] [address] [facility] [id number] [address] [place] [address] May, [facility] [address] [facility] [id number] [address] [place] [address] May, Generalized abdominal pain R 10.84 and Candidal dermatitis B37.2 [facility] [address] [facility] [id number] [address] [place] [address] May, [facility] [address] [facility] [id number] [address] [place] [address] May, [facility] [address] [facility] [id number] [address] [place] [address] May, Nodular radiologic density R 93.8 ; Weight loss, unintentional R63.4 and Pulmonary emphysema, unspecified emphysema type J43.9 [place] [address] [place] [id number] [address] [place] [address] May, Chronic pain G89.29 [place] [address] [place] [id number] [address] [place] [address] May, Syncope and collapse R55 ; C hronic fatigue R53.[address] lung screening R91.8 [place] [address] [place] [id number] [address] [place] [address] May, [place] [address] [place] [id number] [address] [place] [address] Apr, Chronic fatigue R53.82 ; Abn ormal chest CT R93.8 ; Elevated erythrocyte sedimentation rate R70.0 ; Hypothyroid E03.9 and Recurrent major depressive disorder, in partial remission F33.41 [place] [address] [facility] [id number] [address] [place] [address] Apr, Hypothyroid E03.9 [place] [address] [facility] [id number] [address] [place] [address] Apr, Depression F32.9 [place] [address] [facility] [id number] [address] [place] [address] Apr, [place] [address] [facility] [id number] [address] [place] [address] March, [place] [address] [facility] [id number] [address] [place] [address] March, Hypothyroid E03.9 [place] [address] [facility] [id number] [address] [place] [address] March, Diabetes mellitus E11.9 and Hypothyroid E03.9 [place] [address] [facility] [id number] [address] [place] [address] March, Diabetes mellitus E11.9 [place] [address] [place] [id number] [address] [place] [address] March, Hypothyroid E03.9 and Elevat ed liver enzymes R74.8 [place] [address] [facility] [id number] [address] [place] [address] March, Type 2 diabetes mellitus wit h hyperglycemia E11.65 ; 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.4 ; Pulmonary emphysema, unspecified emphysema type J43.9 ; Hypothyroid E03.9 ; Neuropathy G62.9 ; Mixed hyperlipidemia E78.2 ; Chronic pain G89.29 ; Gastroesophageal reflux disease with esophagitis K21.0 ; Irritable bowel syndrome with diarrhea K58.0 ; Overactive bladder N32.81 and Recurrent major depressive disorder, in partial remission F33.41 [place] [address] [facility] [id number] [address] [place] [address] Feb, Chronic pain G89.29 [place] [address] [place] [id number] [address] [place] [address] Feb, Type 2 diabetes mellitus wit h hyperglycemia E11.65 and Skin lesion of scalp L98.9 [place] [address] [place] [id number] [address] [place] [address] Feb, [place] [address] [facility] [id number] [address] [place] [address] Jan, Type 2 diabetes mellitus wit h [...] and Irritable bowel syndrome with diarrhea K58.0 [place] [address] [facility] [id number] [address] [place] [address] Jan, [place] [address] [place] [id number] [address] [place] [address] Jan, Controlled substance agreeme nt signed Z79.899 [place] [address] [place] [id number] [address] [place] [address] Dec, Type 2 diabetes mellitus wit h hyperglycemia E11.65 ; Controlled substance agreement signed Z79.899 ; 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.4 ; Essential (primary) hypertension I10 ; Hypothyroid E03.9 ; Neuropathy G62.9 ; Depression F32.9 ; Mixed hyperlipidemia E78.2 ; Irritable bowel syndrome with diarrhea K58.0 ; Gastroesophageal reflux disease with esophagitis K21.0 ; Thrombocytosis D47.3 ; Current non-adherence to medical treatment Z91.19 and Overweight (BMI 25.0-29.9) E66.3 [place] [address] [place] [id number] [address] [place] [address] Dec, Controlled substance agreeme nt signed Z79.899 [place] [address] [place] [id number] [address] [place] [address] Nov, Type 2 diabetes mellitus wit h hyperglycemia E11.65 and Current non- adherence to medical treatment Z91.19 [place] [address] [place] [id number] [address] [place] [address] Nov, [facility] [address] [id number] [address] [place] [address] Nov, Chronic pain G89.29 [facility] [address] [id number] [address] [place] [address] Nov, [facility] [address] [facility] [id number] [address] [place] [address] Nov, Hypothyroid E03.9 [facility] [address] [id number] [address] [place] [address] Nov, Hypothyroid E03.9 [facility] [address] [id number] [address] [place] [address] Nov, Pulmonary emphysema, unspeci fied emphysema type J43.9 and Irritable bowel syndrome with diarrhea K58.0 [facility] [address] [facility] [id number] [address] [place] [address] Oct, [facility] [address] [facility] [id number] [address] [place] [address] Oct, [facility] [address] [id number] [address] [place] [address] Oct, [facility] [address] [facility] [id number] [address] [place] [address] Oct, [facility] [address] [facility] [id number] [address] [place] [address] Oct, Chronic pain G89.29 [facility] [address] [id number] [address] [place] [address] Oct, Diabetes mellitus E11.9 ; De pression F32.9 ; Mixed hyperlipidemia E78.2 ; Hypotension, unspecified hypotension type I95.9 ; Pulmonary emphysema, unspecified emphysema type J43.9 and Weight loss, unintentional R63.4 [facility] [address] [facility] [id number] [address] [place] [address] Oct, Chronic pain G89.29 [facility] [address] [place] [id number] [address] [place] [address] Sep, Chronic pain G89.29 [facility] [address] [place] [id number] [place] [address] Sep, Hypothyroid E03.9 and Diabet es mellitus E11.9 [facility] [address] [place] [id number] [address] [place] [address] Aug, Type 2 diabetes mellitus wit h hyperglycemia E11.65 ; detention current use of insulin Z79.4 ; Essential (primary) hypertension I10 ; Hypothyroid E03.9 ; Neuropathy G62.9 ; Chronic pain G89.29 ; Mixed hy perlipidemia E78.2 and Encounter for immunization Z23 [facility] [address] [place] [id number] [address] [place] [address] Aug, Chronic pain G89.29 [place] [address] [address] Aug, Overactive bladder N32.81 ; Diabetes mellitus E11.9 and Chronic pain G89.29 [place] [id number] [place] [id number] [address] [place] [address] Jul, [place] [address] [address] Jun, [place] [address] [address] Jun, [facility] [address] [place] [id number] [address] [place] [address] Jun, Hypothyroid E03.9 [facility] [address] [place] [id number] [address] [place] [address] Jun, Diabetes mellitus E11.9 ; Hy pothyroid E03.9 ; Neuropathy G62.9 ; Chronic pain G89.29 and Neck mass R22.1 [facility] [address] [place] [id number] [address] [place] [address] Apr, [facility] [address] [place] [id number] [address] [place] [address] Apr, Acute cystitis without hemat uria N30.00 [facility] [address] [place] [id number] [address] [place] [address] March, [facility] [address] [place] [id number] [address] [place] [address] March, [facility] [address] [address] March, Near syncope R55 [facility] [address] [address] Feb, [facility] [address] [address] Feb, Chronic pain G89.29 [place] [address] [address] Feb, [facility] [address] [place] [id number] [address] [place] [address] Feb, [facility] [address] [address] Jan, Chronic pain G89.29 [facility] [address] [address] Jan, [facility] [address] [address] Jan, [facility] [address] [place] [id number] [address] [place] [address] 14 Jan, 2017 Diabetes mellitus E11.9 ; Hy pothyroid E03.9 ; GERD (gastroesophageal reflux disease) K21.9 ; Insomnia G47.00 ; Functional diarrhea K59.1 ; Neuropathy G62.9 ; Depression F32.9 ; Chronic pain G89.29 ; Irritable bowel syndrome with diarrhea K58.0 ; Overactive bladder N32.81 ; Mixed hyperlipidemia E78.2 and Bronchitis J40 [facility] [address] [place] [id number] [address] [place] [address] Dec, [facility] [address] [facility] [id number] [address] [place] [address] Dec, [facility] [address] [facility] [id number] [address] [place] [address] Dec, [facility] [address] [facility] [id number] [address] [place] [address] Dec, [facility] [address] [facility] [id number] [address] [place] [address] Dec, Chronic pain G89.29 [facility] [address] [facility] [id number] [address] [place] [address] Dec, [facility] [address] [place] [id number] [address] [place] [address] Dec, [facility] [address] [place] [id number] [address] [place] [address] Dec, Type 2 diabetes mellitus wit h foot ulcer E11.621 [facility] [address] [place] [id number] [address] [place] [address] 17 Dec, 2016 Type 2 diabetes mellitus wit h foot ulcer E11.621 [facility] [id number] [place] [address] 14 Dec, 2016 HTN (hypertension) I10 ; Dep ression F32.9 ; Type 2 diabetes mellitus with foot ulcer E11.621 ; Functional diarrhea K59.1 ; Irritable bowel syndrome with diarrhea K58.0 ; Chronic pain G89.29 ; Insomnia G47.00 ; Overactive bladder N32.81 ; Mixed hyperlipidemia E78.2 ; Gastroesophageal reflux disease with esophagitis K21.0 and Acquired hypothyroidism E03.9 [facility] [address] [place] [id number] [address] [place] [address] Nov, [facility] [id number] [place] [address] Oct, [place] [address] [address] Oct, [place] [address] [address] Oct, [place] [address] [address] Sep, Functional diarrhea K59.1 ; HTN (hypertension) I10 ; Diabetes mellitus E11.9 ; Depression F32.9 ; Overactive bladder N32.81 ; Mixed hyperlipidemia E78.2 ; Gastroesophageal reflux disease without esophagitis K21.9 ; Chronic pain G89.29 ; Insomnia G47.00 and Acquired hypothyroidism E03.9 [place] [address] [address] Sep, [place] [address] [address] Aug, Encounter for immunization Z 23 [place] [address] [address] 06 Aug, 2016 [place] [address] [address] Jul, [place] [address] [address] Jun, Type 2 diabetes mellitus wit hout complications E11.9 ; HTN (hypertension) I10 ; Hypothyroid E03.9 ; Neuropathy G62.9 ; Depression F32.9 ; Chronic pain G89.29 ; GERD (gastroesophageal reflux disease) K21.9 ; Insomnia G47.00 ; Overactive bladder N32.81 ; Mixed hyperlipidemia E78.2 ; Diarrhea of infectious origin A09 and Environmental allergies Z91.09 [place] [address] [place] [id number] [address] [place] [address] Apr, [place] [address] [address] March, Hypothyroidism, unspecified E03.9 and Mixed hyperlipidemia E78.2 [place] [id number] [place] [id number] [address] [place] [address] March, Diabetes mellitus E11.9 ; HT N (hypertension) I10 ; Hypothyroid E03.9 ; Depression F32.9 ; Overactive bladder N32.81 ; Other chronic pain G89.29 ; Lumbago with sciatica, unspecified side M54.40 ; Environmental allergies Z91.09 and Gastroesophageal reflux disease, esophagitis presence not specified K21.9 [place] [address] [place] [id number] [address] [place] [address] March, [place] [address] [address] Jan, HTN (hypertension) I10 ; Hyp othyroid E03.9 ; Neuropathy G62.9 ; Diabetes mellitus E11.9 ; Chronic pain G89.29 ; GERD (gastroesophageal reflux disease) K21.9 ; Overactive bladder N32.81 and Depression F32.9 [place] [address] [place] [id number] [address] [place] [address] Dec, Ear pain, left H92.02 ; HTN (hypertension) I10 ; Hypothyroid E03.9 ; Neuropathy G62.9 ; Diabetes mellitus E11.9 ; Depression F32.9 ; GERD (gastroesophageal reflux disease) K21.9 ; Insomnia G47.00 and Overactive bladder N32.81 [place] [address] [place] [id number] [address] [place] [address] Nov, Overactive bladder N32.81 an d Chronic pain G89.29 [place] [address] [facility] [id number] [address] [place] [address] Nov, Kidney failure N19 [place] [address] [place] [id number] [address] [place] [address] Nov, [place] [address] [place] [id number] [address] [place] [address] Nov, [place] [address] [address] Nov, Diabetes mellitus E11.9 ; De pression F32.9 ; Chronic pain G89.29 ; GERD (gastroesophageal reflux disease) K21.9 ; Insomnia G47.00 ; HTN (hypertension) I10 ; Hypothyroid E03.9 ; COPD (chronic obstructive pulmonary disease) J44.9 ; Bladder incontinence R32 and Incontinence R32 [place] [address] [address] Sep, Type 2 diabetes mellitus wit h foot ulcer E11.621 and Chromosomal abnormality, 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 [address] Sep, [place] [address] [address] Aug, [address] [address] Aug, [place] [address] [address] Aug, HTN (hypertension) I10 ; Enc ounter for immunization Z23 ; Hypothyroid E03.9 ; Neuropathy G62.9 ; Diabetes mellitus E11.9 ; Depression F32.9 ; Chronic pain G89.29 ; GERD (gastroesophageal reflux disease) K21.9 ; Insomnia G47.00 and COPD (chronic obstructive pulmonary disease) J44.9 [place] [address] [address] Jun, [place] [address] [address] Jun, [address] [address] May, Essential hypertension, ivis gn 401.1 ; Unspecified hypothyroidism 244.9 ; Insomnia, unspecified 780.52 ; Shortness of breath 786.05 ; Depression 311 ; COPD (chronic obstructive pulmonary disease) 496 ; GERD (gastroesophageal reflux disease) 530.81 and Diabetes 1.5, 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 [facility] [address] [facility] [id number] [address] [place] [address] May, [facility] [address] [facility] [id number] [address] [place] [id number] May, [facility] [address] [facility] [id number] [address] [place] [id number] May, Shortness of breath 786.05 ; Essential hypertension, benign 401.1 ; Diabetes mellitus 250.00 ; Hyperlipidemia 272.4 ; Hypothyroid 244.9 ; Insomnia 780.52 and Cough 786.2 [facility] [address] [facility] [id number] [address] [place] [id number] Apr, [facility] [address] [facility] [id number] [address] [place] [address] [id number] March, Shortness of breath 786.05 ; Nausea with vomiting 787.01 ; Essential hypertension, benign 401.1 ; Diabetes mellitus 250.00 ; Hyperlipidemia 272.4 and Hypothyroid 244.9 [facility] [address] [id number] [address] [place] [address] Feb, [facility] [address] [facility] [id number] [address] [place] [id number] Feb, [facility] [address] [facility] [id number] [address] [place] [address] Jan, [facility] [address] [facility] [id number] [address] [place] [id number] Jan, [facility] [address] [facility] [id number] [address] [place] [address] Jan, [facility] [address] [facility] [id number] [address] [place] [id number] Jan, [facility] [address] [facility] [id number] [address] [place] [address] Jan, [facility] [address] [id number] [address] [place] [address] Jan, [facility] [address] [id number] [address] [place] [address], [place] [address] Jan, [facility] [address] [id number] [address] [place] [address], [place] [address] Jan, [facility] [address] [id number] [address] [place] [address], [place] [address] Jan, [facility] [address] [id number] [address] [place] [address], [place] [address] Jan, [facility] [address] [id number] [address] [place] [address], [place] [address] Dec, 2014 [facility] [address] [id number] [address] [place] [address], [place] [address] Dec, 2014 [facility] [address] [id number] [address] [place] [address], [place] [address] Dec, 2014 [facility] [address] [id number] [address] [place] [address], [place] [address] Dec, 2014 [facility] [address] [id number] [address] [place] [address], [place] [address] Dec, 2014 [facility] [address] [id number] [address] [place] [address], [place] [address] Dec, 2014 [facility] [address] [id number] [address] [place] [address], [place] [address] Dec, 2014 [facility] [address] [id number] [address] [place] [id number] Dec, 2014 [facility] [address] [id number] [address] [place] [address], [place] [address] Dec, 2014 [facility] [address] [id number] [address] [place] [id number] Dec, 2014 [facility] [address] [id number] [address] [place] [id number] Oct, [facility] [address] [id number] [address] [place] [address], [place] [address] Oct, [facility] [address] [id number] [address] [place] [address], [place] [address] Oct, [facility] [address] [id number] [address] [place] [address], [place] [address] Oct, [facility] [address] [id number] [address] [place] [address], [place] [address] Oct, [facility] [address] [id number] [address] [place] [address], [place] [address] Oct, [facility] [address] [id number] [address] [place] [address], [place] [address] Oct, [facility] [address] [id number] [address] [place] [address], [place] [address] Oct, [facility] [address] [id number] [address] [place] [address], [place] [address] Oct, [facility] [address] [id number] [address] [place] [address], [place] [address] Oct, [facility] [address] [id number] [address] [place] [address], [place] [address] Oct, [facility] [address] [id number] [address] [place] [address], [place] [address] Oct, [facility] [address] [id number] [address] [place] [address], [place] [address] Oct, [facility] [address] [id number] [address] [place] [address], [place] [address] Oct, [facility] [address] [id number] [address] [place] [address], [place] [id number] Sep, [facility] [address] [id number] [address] [place] [address], [place] [address] Sep, [facility] [address] [id number] [address] [place] [id number] Sep, [facility] [address] [id number] [address] [place] [address], [place] [address] Sep, [facility] [address] [id number] [address] [place] [id number] Sep, [facility] [address] [id number] [address] [place] [address], [place] [address] Sep, [facility] [address] [id number] [address] [place] [address], [place] [address] Sep, [facility] [address] [id number] [address] [place] [address], [place] [address] Sep, [facility] [address] [id number] [address] [place] [address], [place] [address] Sep, [facility] [address] [id number] [address] [place] [address], [place] [address] Aug, [facility] [address] [id number] [address] [place] [address], [place] [address] Aug, [facility] [address] [id number] [address] [place] [id number] Aug, [facility] [address] [id number] [address] [place] [address], [place] [address] Aug, [facility] [address] [id number] [address] [place] [id number] 16 Aug, 2014 [facility] [address] [id number] [address] [place] [id number] Aug, [facility] [address] [id number] [address] [place] [address], [place] [address] Aug, [facility] [address] [id number] [address] [place] [id number] Aug, [facility] [address] [id number] [address] [place] [address], [place] [address] Aug, [facility] [address] [id number] [facility] [place] [address] 29 Jul, 2013 [facility] [address] [id number] [facility] [place] [address] 29 Jul, 2013 [facility] [address] [id number] [facility] [place] [address] Jul, 2013 [facility] [address] [id number] [facility] [place] [address] Jul, 2013 [facility] [address] [id number] [facility] [place] [address] Jul, 2013 [facility] [address] [id number] [address] [place] [address], [place] [address] Jul, 2013 [facility] [address] [id number] [address] [place] [address], [place] [address] Jul, 2013 [facility] [address] [id number] [address] [place] [address], [place] [address] Jul, 2013 [facility] [address] [id number] [address] [place] [address], [place] [address] Jul, [facility] [address] [id number] [address] [place] [address], [place] [address] Jul, [facility] [address] [id number] [address] [place] [address], [place] [address] Jun, [facility] [address] [id number] [address] [place] [address], [place] [address] Jun, [facility] [address] [id number] [address] [place] [address], [place] [address] Jun, [facility] [address] [id number] [address] [place] [address], [place] [address] Jun, [facility] [address] [id number] [address] [place] [address], [place] [address] Jun, [facility] [address] [id number] [address] [place] [address], [place] [address] Jun, [facility] [address] [id number] [facility] [place] [address] Jun, [facility] [address] [id number] [facility] [place] [address] Jun, [facility] [address] [id number] [facility] [place] [address] Jun, [facility] [address] [id number] [address] [place] [address], [place] [address] Jun, [facility] [address] [id number] [address] [place] [address], [place] [address] Jun, [facility] [address] [id number] [address] [place] [address], [place] [address] Jun, [facility] [address] [id number] [address] [place] [address], [place] [address] May, [facility] [address] [id number] [address] [place] [address], [place] [address] May, [facility] [address] [id number] [address] [place] [address], [place] [address] May, [facility] [address] [id number] [address] [place] [address], [place] [address] May, [facility] [address] [id number] [address] [place] [address], [place] [address] May, [facility] [address] [id number] [address] [place] [address], [place] [address] May, [facility] [address] [id number] [address] [place] [address], [place] [address] March, [facility] [address] [id number] [address] [place] [address], [place] [address] March, [facility] [address] [id number] [address] [place] [address], [place] [address] March, [facility] [address] [id number] [address] [place] [address], [place] [address] March, [facility] [address] [id number] [address] [place] [address], [place] [address] March, [facility] [address] [id number] [address] [place] [address], [place] [address] March, [facility] [address] [id number] [address] [place] [address], [place] [address] Feb, [facility] [address] [id number] [address] [place] [address], [place] [address] Feb, [facility] [address] [id number] [address] [place] [address], [place] [address] Feb, [facility] [address] [id number] [address] [place] [address], [place] [address] Feb, [facility] [address] [id number] [address] [place] [address], [place] [address] Jan, [facility] [address] [id number] [address] [place] [address], [place] [address] Jan, [facility] [address] [id number] [address] [place] [address], [place] [address] Jan, [facility] [address] [id number] [address] [place] [address], [place] [address] Jan, [facility] [address] [id number] [address] [place] [address], [place] [address] Jan, [facility] [address] [id number] [address] [place] [address], [place] [address] Jan, [facility] [address] [id number] [address] [place] [address], [place] [address] Jan, [facility] [address] [id number] [address] [place] [address], [place] [address] Jan, [facility] [address] [id number] [address] [place] [address], [place] [address] Jan, [facility] [address] [id number] [address] [place] [address], [place] [address] Jan, [facility] [address] [id number] [address] [place] [address], [place] [address] Jan, [facility] [address] [id number] [address] [place] [address], [place] [address] Jan, [facility] [address] [id number] [address] [place] [address], [place] [address] Dec, [facility] [address] [id number] [address] [place] [address], [place] [address] Dec, [facility] [address] [id number] [address] [place] [address], [place] [address] Dec, [facility] [address] [id number] [address] [place] [address], [place] [address] Dec, [facility] [address] [id number] [address] [place] [address], [place] [address] Dec, [facility] [address] [id number] [address] [place] [address], [place] [address] Dec, [facility] [address] [id number] [address] [place] [address], [place] [address] Nov, [facility] [address] [id number] [address] [place] [address], [place] [address] Nov, [facility] [address] [id number] [address] [place] [address], [place] [address] Oct, [facility] [address] [id number] [address] [place] [address], [place] [address] Oct, [facility] [address] [id number] [address] [place] [address], [place] [address] Oct, [facility] [address] [id number] [address] [place] [address], [place] [address] Oct, [facility] [address] [id number] [address] [place] [address], [place] [address] Oct, [facility] [address] [id number] [address] [place] [address], [place] [address] Oct, [facility] [address] [id number] [address] [place] [address], [place] [address] Sep, [facility] [address] [id number] [address] [place] [address], [place] [address] Sep, [facility] [address] [id number] [address] [place] [address], [place] [address] Sep, [facility] [address] [id number] [address] [place] [address], [place] [address] Sep, [facility] [address] [id number] [address] [place] [address], [place] [address] Aug, [facility] [address] [id number] [address] [place] [address], [place] [address] Aug, [facility] [address] [id number] [address] [place] [address], [place] [address] Aug, [facility] [address] [id number] [address] [place] [address], [place] [address] Jul, [facility] [address] [id number] [address] [place] [address], [place] [address] 14 Jul, 2013 [facility] [address] [id number] [address] [place] [address], [place] [address] Jul, [facility] [address] [id number] [address] [place] [address], [place] [address] Jun, [facility] [address] [id number] [address] [place] [address], [place] [address] Jun, [facility] [address] [id number] [address] [place] [address], [place] [address] Jun, [facility] [address] [id number] [address] [place] [address], [place] [address] Apr, [facility] [address] [id number] [address] [place] [address], [place] [address] Apr, [facility] [address] [id number] [address] [place] [address], [place] [address] March, [facility] [address] [id number] [address] [place] [address], [place] [address] March, [facility] [address] [id number] [address] [place] [address], [place] [address] March, [facility] [address] [id number] [address] [place] [address], [place] [address] March, [facility] [address] [id number] [address] [place] [address], [place] [address] Feb, [facility] [address] [id number] [address] [place] [address], [place] [address] Jan, [facility] [address] [id number] [address] [place] [address], [place] [address] Dec, [facility] [address] [id number] [address] [place] [address], [place] [address] Dec, [facility] [address] [id number] [address] [place] [address], [place] [address] Dec, [facility] [address] [id number] [address] [place] [address], [place] [address] Nov, [facility] [address] [id number] [address] [place] [address], [place] [address] Oct, [facility] [address] [id number] [address] [place] [address], [place] [address] Oct, [facility] [address] [id number] [address] [place] [address], [place] [address] Sep, [facility] [address] [id number] [address] [place] [address], [place] [address] Sep, [facility] [address] [id number] [address] [place] [address], [place] [id number] Sep, [facility] [address] [id number] [address] [place] [address], [place] [id number] Sep, [facility] [address] [id number] [address] [place] [address], [place] [address] Sep, [facility] [address] [id number] [address] [place] [address], [place] [address] Sep, [facility] [address] [id number] [address] [place] [address], [place] [address] Sep, [facility] [address] [id number] [address] [place] [address], [place] [address] Aug, [facility] [address] [id number] [address] [place] [address], [place] [address] Aug, [facility] [address] [id number] [address] [place] [address], [place] [id number] Aug, [facility] [address] [id number] [address] [place] [address], [place] [address] Aug, [facility] [address] [id number] [address] [place] [address], [place] [address] Aug, [facility] [address] [id number] [address] [place] [id number] Aug, [facility] [address] [id number] [address] [place] [id number] Aug, [facility] [address] [id number] [address] [place] [id number] Aug, [facility] [address] [id number] [address] [place] [address], [place] [id number] Jul, [facility] [address] [id number] [address] [place] [address], [place] [address] Jul, [facility] [address] [id number] [address] [place] [address], [place] [address] Jun, [facility] [address] [id number] [address] [place] [address], [place] [id number] May, [facility] [address] [id number] [address] [place] [address], [place] [id number] Apr, [facility] [address] [id number] [address] [place] [address], [place] [id number] Apr, [facility] [address] [id number] [address] [place] [address], [place] [id number] Apr, [facility] [address] [id number] [address] [place] [address], [place] [id number] March, [facility] [address] [id number] [address] [place] [address], [place] [id number] March, [facility] [address] [id number] [address] [place] [address], [place] [id number] March, [facility] [address] [id number] [address] [place] [address], [place] [id number] March, [facility] [address] [id number] [address] [place] [address], [place] [id number] March, [facility] [address] [id number] [address] [place] [address], [place] [id number] March, [facility] [address] [id number] [address] [place] [address], [place] [id number] March, [facility] [address] [id number] [address] [place] [address], [place] [id number] Jan, [facility] [address] [id number] [address] [place] [address], [place] [id number] Jan, [facility] [address] [id number] [address] [place] [address], [place] [id number] Jan, [facility] [address] [id number] [address] [place] [address], [place] [id number] Jan, [facility] [address] [id number] [address] [place] [address], [place] [id number] Jan, [facility] [address] [id number] [address] [place] [address], [place] [id number] 08 Dec, 2011 [facility] [address] [id number] [address] [place] [address], [place] [id number] Dec, [facility] [address] [id number] [address] [place] [address], [place] [id number] Nov, [facility] [address] [id number] [address] [place] [address], [place] [id number] Nov, [facility] [address] [id number] [address] [place] [address], [place] [id number] Nov, [facility] [address] [id number] [address] [place] [address], [place] [id number] Nov, [facility] [address] [id number] [address] [place] [address], [place] [id number] Oct, [facility] [address] [id number] [address] [place] [address], [place] [id number] Oct, [facility] [address] [id number] [address] [place] [address], [place] [id number] 14 Sep, 2011 [facility] [address] [id number] [address] [place] [address], [place] [id number] Sep, [facility] [address] [id number] [address] [place] [address], [place] [id number] Sep, [facility] [address] [id number] [address] [place] [address], [place] [id number] May, [facility] [address] [id number] [address] [place] [address], [place] [id number] Nov, [facility] [address] [id number] [address] [place] [address], [place] [id number] 29 Oct, 2010 [facility] [address] [id number] [address] [place] [address], [place] [id number] 14 Oct, 2010 [facility] [address] [id number] [address] [place] [id number] 08 Oct, 2010 [facility] [address] [id number] [address] [place] [id number] 15 Sep, 2010 [facility] [address] [id number] [address] [place] [id number] Sep, [facility] [address] [id number] [address] [place] [id number] Aug, [facility] [address] [id number] [address] [place] [id number] March, [facility] [address] [id number] [address] [place] [id number] Oct, [facility] [address] [id number] [address] [place] [id number] Oct, [facility] [address] [id number] [address] [place] [id number] Oct, [facility] [address] [id number] [address] [place] [id number] Oct, [facility] [address] [id number] [address] [place] [id number] Sep, [facility] [address] [id number] [address] [place] [id number] Sep, [facility] [address] [id number] [address] [place] [id number] Sep, [facility] [address] [id number] [address] [place] [id number] Aug, [facility] [address] [id number] [address] [place] [id number] 24 Aug, 2009 [facility] [address] [id number] [address] [place] [id number] Aug, [facility] [address] [id number] [address] [place] [id number] 10 Jan, 2009 IMMUNIZATIONS No Known Immunizations [...]
--- OUTSIDE RECORDS SUMMARY | 2020-06-13 16:44 | XMS REPORT ---
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 Name Role Phone Migration, Doctor Unavailable Unavailable PROBLEMS Type Condition ICD9-CM Code CXH82-QQ Code Onset Dates Condition S tatus SNOMED Code Problem Neuropathy G62.9 Active 945077066 Problem Chronic pain G89.29 Active 5908424 1 Problem Overactive bladder N32.81 Active 2 20433596 Problem Hypothyroid E03.9 Active 02679050 Problem Irritable bowel syndrome with diarrhea K58.0 Active 445616451 Problem senior living current use of insulin Z79.4 Active 994615545 Problem Type 2 diabetes mellitus with hyperglycemia E11.65 Active 95593315 Problem Chronic obstructive pulmonary disease, unspecified COPD ty pe J44.9 Active 97493462 Problem Gastroesophageal reflux disease with esophagitis K 21.0 Active 947995232 Problem Major depressive disorder, recurrent, in full remission F33.42 Active 72917658 Problem Mixed hyperlipidemia E78.2 Active 535621908 Problem Essential (primary) hypertension I10 Active 44265594 Problem Anxiety disorder, unspecified type F41.9 Active 129247190 Problem Gastroparesis K31.84 Active 857206 006 Problem 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 Active 121688305 ALLERGIES No Information ENCOUNTERS Encounter Location Date Diagnosis [facility] [address] [facility] [id number] [address] [place] [phone] Jun, Other chronic pain G89.29 [facility] [address] [facility] [id number] [address] [place] [phone] Jun, [facility] [address] [facility] [id number] [address] [place] [address] Jun, Chronic pain G89.29 [facility] [address] [facility] [id number] [address] [place] [address] Jun, Neuropathy G62.9 [facility] [address] [place] [id number] [address] [place] [address] Jun, Encounter for Medicare annua l wellness exam Z00.00 ; Type 2 diabetes mellitus with hyperglycemia E11.65 ; Mixed hyperlipidemia E78.2 ; Hypothyroid E03.9 ; Gastroesophageal reflux disease with esophagitis K21.0 ; Essential (primary) hypertension I10 ; Major depressive disorder, recurrent, in full remission F33.42 ; Chronic obstructive pulmonary disease, unspecified COPD type J44.9 ; Neuropathy G62.9 and Encounter for immunization Z23 [place] [address] [facility] [id number] [address] [place] [phone] Jun, Irritable bowel syndrome wit h diarrhea K58.0 [place] [address] [facility] [id number] [address] [place] [address] May, Chronic pain G89.29 [place] [address] [place] [id number] [address] [place] [address] May, Type 2 diabetes mellitus wit h hyperglycemia E11.65 and Neuropathy G62.9 [place] [address] [facility] [id number] [address] [place] [id number] May, Chronic pain G89.29 [place] [address] [facility] [id number] [address] [place] [id number] Apr, Poison maryam dermatitis L23.7 [place] [address] [facility] [id number] [address] [place] [address] Apr, Chronic pain G89.29 [place] [address] [facility] [id number] [address] [place] [phone] March, Type 2 diabetes mellitus wit h hyperglycemia E11.65 [place] [address] [facility] [id number] [address] [place] [phone] March, Chronic pain G89.29 [place] [address] [facility] [id number] [address] [place] [address] March, [address] [address] Feb, [facility] [address] [facility] [id number] [address] [place] [phone] 09 Feb, 2019 Other chronic pain G89.29 an d Chronic pain G89.29 [facility] [address] [facility] [id number] [address] [place] [address] Jan, Mixed hyperlipidemia E78.2 [facility] [address] [facility] [id number] [address] [place] [address] Jan, Chronic pain G89.29 [facility] [address] [facility] [id number] [address] [place] [id number] 08 Jan, 2019 Type 2 diabetes mellitus wit h hyperglycemia E11.65 ; Mixed hyperlipidemia E78.2 ; senior living current use of insulin Z79.4 ; Acquired hypothyroidism E03.9 and Essential (primary) hypertension I10 [facility] [address] [facility] [id number] [address] [place] [address] Dec, Chronic pain G89.29 [facility] [address] [facility] [id number] [address] [place] [address] Nov, Chronic pain G89.29 [facility] [address] [facility] [id number] [address] [place] [address] Nov, [facility] [address] [facility] [id number] [address] [place] [address] Oct, Chronic pain G89.29 [facility] [address] [facility] [id number] [address] [place] [phone] Oct, [facility] [address] [facility] [id number] [address] [place] [id number] Sep, [facility] [address] [facility] [id number] [address] [place] [address] Sep, Type 2 diabetes mellitus wit h hyperglycemia E11.65 [facility] [address] [facility] [id number] [address] [place] [address] 16 Sep, 2018 Chronic pain G89.29 [facility] [address] [address] Sep, [place] [address] [address] Sep, Type 2 diabetes mellitus wit h hyperglycemia E11.65 ; Irritable bowel syndrome with diarrhea K58.0 ; Gastroparesis K31.84 ; 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 and Dermatitis L30.9 [place] [address] [address] Aug, Chronic pain G89.29 [place] [address] [address] Jul, Chronic pain G89.29 [place] [address] [address] Jun, Type 2 diabetes mellitus wit h hyperglycemia E11.65 ; Neuropathy G62.9 ; Recurrent major depressive disorder, in partial remission F33.41 ; Chronic pain G89.29 and Hypertriglyceridemia E78.1 [place] [address] [address] Jun, Hypothyroid E03.9 [place] [address] [address] Jun, Major depressive disorder, r ecurrent episode, moderate F33.1 and Anxiety disorder, unspecified type F41.9 [place] [address] [address] Jun, [place] [address] [address] Jun, Type 2 diabetes mellitus wit h hyperglycemia E11.65 ; 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 ; Recurrent major depressive disorder, in partial remission F33.41 ; Hypothyroid E03.9 ; Candidal dermatitis B37.2 and Weakness generalized R53.1 [place] [address] [address] May, [facility] [address] [facility] [id number] [address] [place] [address] May, [facility] [address] [facility] [id number] [address] [place] [address] May, [facility] [address] [facility] [id number] [address] [place] [address] May, Generalized abdominal pain R 10.84 and Candidal dermatitis B37.2 [facility] [address] [facility] [id number] [address] [place] [id number] May, [facility] [address] [facility] [id number] [address] [place] [id number] May, [facility] [address] [facility] [id number] [address] [place] [address] May, Nodular radiologic density R 93.8 ; Weight loss, unintentional R63.4 and Pulmonary emphysema, unspecified emphysema type J43.9 [place] [address] [place] [id number] [address] [place] [address] May, Chronic pain G89.29 [place] [address] [place] [id number] [address] [place] [address] May, Syncope and collapse R55 ; C hronic fatigue R53.[address] lung screening R91.8 [place] [address] [place] [id number] [address] [place] [id number] May, [place] [address] [place] [id number] [address] [place] [address] Apr, Chronic fatigue R53.82 ; Abn ormal chest CT R93.8 ; Elevated erythrocyte sedimentation rate R70.0 ; Hypothyroid E03.9 and Recurrent major depressive disorder, in partial remission F33.41 [place] [address] [facility] [id number] [address] [place] [address] Apr, Hypothyroid E03.9 [place] [address] [facility] [id number] [address] [place] [address] Apr, Depression F32.9 [place] [address] [facility] [id number] [address] [place] [phone] Apr, [place] [address] [facility] [id number] [address] [place] [address] March, [place] [address] [facility] [id number] [address] [place] [address] March, Hypothyroid E03.9 [place] [address] [facility] [id number] [address] [place] [phone] March, Diabetes mellitus E11.9 and Hypothyroid E03.9 [place] [address] [facility] [id number] [address] [place] [address] March, Diabetes mellitus E11.9 [place] [address] [place] [id number] [address] [place] [address] March, Hypothyroid E03.9 and Elevat ed liver enzymes R74.8 [place] [address] [facility] [id number] [address] [place] [address] March, Type 2 diabetes mellitus wit h [...] major depressive disorder, in partial remission F33.41 [place] [address] [facility] [id number] [address] [place] [address] Feb, Chronic pain G89.29 [place] [address] [place] [id number] [address] [place] [address] Feb, Type 2 diabetes mellitus wit h hyperglycemia E11.65 and Skin lesion of scalp L98.9 [place] [address] [place] [id number] [address] [place] [address] Feb, [place] [address] [facility] [id number] [address] [place] [address] Jan, Type 2 diabetes mellitus wit h [...] and Irritable bowel syndrome with diarrhea K58.0 [place] [address] [facility] [id number] [address] [place] [address] Jan, [place] [address] [place] [id number] [address] [place] [id number] Jan, Controlled substance agreeme nt signed Z79.899 [place] [address] [place] [id number] [address] [place] [address] Dec, Type 2 diabetes mellitus wit h [...] treatment Z91.19 and Overweight (BMI 25.0-29.9) E66.3 [place] [address] [place] [id number] [address] [place] [address] Dec, Controlled substance agreeme nt signed Z79.899 [place] [address] [place] [id number] [address] [place] [address] Nov, Type 2 diabetes mellitus wit h hyperglycemia E11.65 and Current non- adherence to medical treatment Z91.19 [place] [address] [place] [id number] [address] [place] [address] Nov, [facility] [address] [id number] [address] [place] [address] Nov, Chronic pain G89.29 [facility] [address] [id number] [address] [place] [phone] Nov, [facility] [address] [facility] [id number] [address] [place] [address] Nov, Hypothyroid E03.9 [facility] [address] [id number] [address] [place] [address] Nov, Hypothyroid E03.9 [facility] [address] [id number] [address] [place] [id number] Nov, Pulmonary emphysema, unspeci fied emphysema type J43.9 and Irritable bowel syndrome with diarrhea K58.0 [facility] [address] [facility] [id number] [address] [place] [phone] Oct, [facility] [address] [facility] [id number] [address] [place] [id number] Oct, [facility] [address] [id number] [address] [place] [phone] Oct, [facility] [address] [facility] [id number] [address] [place] [phone] Oct, [facility] [address] [facility] [id number] [address] [place] [address] Oct, Chronic pain G89.29 [facility] [address] [id number] [address] [place] [address] Oct, Diabetes mellitus E11.9 ; De pression F32.9 ; Mixed hyperlipidemia E78.2 ; Hypotension, unspecified hypotension type I95.9 ; Pulmonary emphysema, unspecified emphysema type J43.9 and Weight loss, unintentional R63.4 [facility] [address] [facility] [id number] [address] [place] [address] Oct, Chronic pain G89.29 [facility] [address] [place] [id number] [address] [place] [address] Sep, Chronic pain G89.29 [facility] [address] [place] [id number] [place] [address] Sep, Hypothyroid E03.9 and Diabet es mellitus E11.9 [facility] [address] [place] [id number] [address] [place] [address] Aug, Type 2 diabetes mellitus wit h hyperglycemia E11.65 ; senior living current use of insulin Z79.4 ; Essential (primary) hypertension I10 ; Hypothyroid E03.9 ; Neuropathy G62.9 ; Chronic pain G89.29 ; Mixed hy perlipidemia E78.2 and Encounter for immunization Z23 [facility] [address] [place] [id number] [address] [place] [address] Aug, Chronic pain G89.29 [place] [address] [address] Aug, Overactive bladder N32.81 ; Diabetes mellitus E11.9 and Chronic pain G89.29 [place] [id number] [place] [id number] [address] [place] [address] Jul, [place] [address] [address] Jun, [place] [address] [address] Jun, [facility] [address] [place] [id number] [address] [place] [address] Jun, Hypothyroid E03.9 [facility] [address] [place] [id number] [address] [place] [address] Jun, Diabetes mellitus E11.9 ; Hy pothyroid E03.9 ; Neuropathy G62.9 ; Chronic pain G89.29 and Neck mass R22.1 [facility] [address] [place] [id number] [address] [place] [address] Apr, [facility] [address] [place] [id number] [address] [place] [address] Apr, Acute cystitis without hemat uria N30.00 [facility] [address] [place] [id number] [address] [place] [address] March, [facility] [address] [place] [id number] [address] [place] [address] March, [facility] [address] [address] March, Near syncope R55 [facility] [address] [address] Feb, [facility] [address] [address] Feb, Chronic pain G89.29 [place] [address] [address] Feb, [facility] [address] [place] [id number] [address] [place] [address] Feb, [facility] [address] [address] Jan, Chronic pain G89.29 [facility] [address] [address] Jan, [facility] [address] [address] Jan, [facility] [address] [place] [id number] [address] [place] [address] 14 Jan, 2017 Diabetes mellitus E11.9 ; Hy pothyroid E03.9 ; GERD (gastroesophageal reflux disease) K21.9 ; Insomnia G47.00 ; Functional diarrhea 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 ; Neuropathy G62.9 ; Depression F32.9 ; Chronic pain G89.29 ; Irritable bowel syndrome with diarrhea K58.0 ; Overactive bladder N32.81 ; Mixed hyperlipidemia E78.2 and Bronchitis J40 [facility] [address] [place] [id number] [address] [place] [phone] Dec, [facility] [address] [facility] [id number] [address] [place] [phone] Dec, [facility] [address] [facility] [id number] [address] [place] [phone] Dec, [facility] [address] [facility] [id number] [address] [place] [phone] Dec, [facility] [address] [facility] [id number] [address] [place] [address] Dec, Chronic pain G89.29 [facility] [address] [facility] [id number] [address] [place] [address] Dec, [facility] [address] [place] [id number] [address] [place] [address] Dec, [facility] [address] [place] [id number] [address] [place] [address] Dec, Type 2 diabetes mellitus wit h foot ulcer E11.621 [facility] [address] [place] [id number] [address] [place] [address] 17 Dec, 2016 Type 2 diabetes mellitus wit h foot ulcer E11.621 [facility] [address] [place] [address] 14 Dec, 2016 HTN (hypertension) I10 ; Dep ression F32.9 ; Type 2 diabetes mellitus with foot ulcer E11.621 ; Functional diarrhea K59.1 ; Irritable bowel syndrome with diarrhea K58.0 ; Chronic pain G89.29 ; Insomnia G47.00 ; Overactive bladder N32.81 ; Mixed hyperlipidemia E78.2 ; Gastroesophageal reflux disease with esophagitis K21.0 and Acquired hypothyroidism E03.9 [facility] [address] [place] [id number] [address] [place] [address] Nov, [facility] [address] [place] [address] Oct, [place] [address] [address] Oct, [place] [address] [address] Oct, [place] [address] [address] Sep, Functional diarrhea K59.1 ; HTN (hypertension) I10 ; Diabetes mellitus E11.9 ; Depression F32.9 ; Overactive bladder N32.81 ; Mixed hyperlipidemia E78.2 ; Gastroesophageal reflux disease without esophagitis K21.9 ; Chronic pain G89.29 ; Insomnia G47.00 and Acquired hypothyroidism E03.9 [place] [address] [address] Sep, [place] [address] [address] Aug, Encounter for immunization Z 23 [place] [address] [address] 06 Aug, 2016 [place] [address] [address] Jul, [place] [address] [address] Jun, Type 2 diabetes mellitus wit hout complications E11.9 ; HTN (hypertension) I10 ; Hypothyroid E03.9 ; Neuropathy G62.9 ; Depression F32.9 ; Chronic pain G89.29 ; GERD (gastroesophageal reflux disease) K21.9 ; Insomnia G47.00 ; Overactive bladder N32.81 ; Mixed hyperlipidemia E78.2 ; Diarrhea of infectious origin A09 and Environmental allergies Z91.09 [place] [address] [place] [id number] [address] [place] [address] Apr, [place] [address] [address] March, Hypothyroidism, unspecified E03.9 and Mixed hyperlipidemia E78.2 [place] [id number] [place] [id number] [address] [place] [address] March, Diabetes mellitus E11.9 ; HT N (hypertension) I10 ; Hypothyroid E03.9 ; Depression F32.9 ; Overactive bladder N32.81 ; Other chronic pain G89.29 ; Lumbago with sciatica, unspecified side M54.40 ; Environmental allergies Z91.09 and Gastroesophageal reflux disease, esophagitis presence not specified K21.9 [place] [id number] [place] [id number] [address] [place] [phone] March, [place] [address] [address] Jan, HTN (hypertension) I10 ; Hyp othyroid E03.9 ; Neuropathy G62.9 ; Diabetes mellitus E11.9 ; Chronic pain G89.29 ; GERD (gastroesophageal reflux disease) K21.9 ; Overactive bladder N32.81 and Depression F32.9 [place] [address] [place] [id number] [address] [place] [address] Dec, Ear pain, left H92.02 ; HTN (hypertension) I10 ; Hypothyroid E03.9 ; Neuropathy G62.9 ; Diabetes mellitus E11.9 ; Depression F32.9 ; GERD (gastroesophageal reflux disease) K21.9 ; Insomnia G47.00 and Overactive bladder N32.81 [place] [address] [address] [place] [id number] [address] [place] [id number] Nov, Overactive bladder N32.81 an d Chronic pain G89.29 [place] [address] [facility] [id number] [address] [place] [phone] Nov, Kidney failure N19 [place] [address] [address] [place] [id number] [address] [place] [id number] Nov, [place] [address] [address] [place] [id number] [address] [place] [phone] Nov, [place] [address] [id number] Nov, Diabetes mellitus E11.9 ; De pression F32.9 ; Chronic pain G89.29 ; GERD (gastroesophageal reflux disease) K21.9 ; Insomnia G47.00 ; HTN (hypertension) I10 ; Hypothyroid E03.9 ; COPD (chronic obstructive pulmonary disease) J44.9 ; Bladder incontinence R32 and Incontinence R32 [place] [address] [id number] Sep, Type 2 diabetes mellitus wit h foot ulcer E11.621 and Chromosomal abnormality, 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 [phone] Sep, [place] [address] [phone] Aug, [address] [phone] Aug, [place] [address] [phone] Aug, HTN (hypertension) I10 ; Enc ounter for immunization Z23 ; Hypothyroid E03.9 ; Neuropathy G62.9 ; Diabetes mellitus E11.9 ; Depression F32.9 ; Chronic pain G89.29 ; GERD (gastroesophageal reflux disease) K21.9 ; Insomnia G47.00 and COPD (chronic obstructive pulmonary disease) J44.9 [place] [address] [phone] Jun, [place] [address] [phone] Jun, [address] [phone] May, Essential hypertension, ivis gn 401.1 ; Unspecified hypothyroidism 244.9 ; Insomnia, unspecified 780.52 ; Shortness of breath 786.05 ; Depression 311 ; COPD (chronic obstructive pulmonary disease) 496 ; GERD (gastroesophageal reflux disease) 530.81 and Diabetes 1.5, 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 [facility] [address] [facility] [id number] [address] [place] [phone] May, [facility] [address] [facility] [id number] [address] [place] [phone] May, [facility] [address] [facility] [id number] [address] [place] [id number] May, Shortness of breath 786.05 ; Essential hypertension, benign 401.1 ; Diabetes mellitus 250.00 ; Hyperlipidemia 272.4 ; Hypothyroid 244.9 ; Insomnia 780.52 and Cough 786.2 [facility] [address] [facility] [id number] [address] [place] [id number] Apr, [facility] [address] [facility] [id number] [address] [place] [address] March, Shortness of breath 786.05 ; Nausea with vomiting 787.01 ; Essential hypertension, benign 401.1 ; Diabetes mellitus 250.00 ; Hyperlipidemia 272.4 and Hypothyroid 244.9 [facility] [address] [id number] [address] [place] [address] Feb, [facility] [address] [facility] [id number] [address] [place] [address] Feb, [facility] [address] [facility] [id number] [address] [place] [address] Jan, [facility] [address] [facility] [id number] [address] [place] [address] Jan, [facility] [address] [facility] [id number] [address] [place] [address] Jan, [facility] [address] [facility] [id number] [address] [place] [address] Jan, [facility] [address] [facility] [id number] [address] [place] [address] Jan, [facility] [address] [id number] [address] [place] [address] Jan, [facility] [address] [id number] [address] [place] [address], [place] [address] Jan, [facility] [address] [id number] [address] [place] [address], [place] [address] Jan, [facility] [address] [id number] [address] [place] [address], [place] [address] Jan, [facility] [address] [id number] [address] [place] [address], [place] [address] Jan, [facility] [address] [id number] [address] [place] [address], [place] [address] Dec, 2014 [facility] [address] [id number] [address] [place] [address], [place] [address] Dec, 2014 [facility] [address] [id number] [address] [place] [address], [place] [address] Dec, 2014 [facility] [address] [id number] [address] [place] [address], [place] [address] Dec, 2014 [facility] [address] [id number] [address] [place] [address], [place] [address] Dec, 2014 [facility] [address] [id number] [address] [place] [address], [place] [address] Dec, 2014 [facility] [address] [id number] [address] [place] [address], [place] [address] Dec, 2014 [facility] [address] [id number] [address] [place] [address] Dec, 2014 [facility] [address] [id number] [address] [place] [address], [place] [address] Dec, 2014 [facility] [address] [id number] [address] [place] [address] Dec, 2014 [facility] [address] [id number] [address] [place] [address] Oct, [facility] [address] [id number] [address] [place] [address], [place] [address] Oct, [facility] [address] [id number] [address] [place] [address], [place] [address] Oct, [facility] [address] [id number] [address] [place] [address], [place] [address] Oct, [facility] [address] [id number] [address] [place] [address], [place] [address] Oct, [facility] [address] [id number] [address] [place] [address], [place] [address] Oct, [facility] [address] [id number] [address] [place] [address], [place] [address] Oct, [facility] [address] [id number] [address] [place] [address], [place] [address] Oct, [facility] [address] [id number] [address] [place] [address], [place] [address] Oct, [facility] [address] [id number] [address] [place] [address], [place] [address] Oct, [facility] [address] [id number] [address] [place] [address], [place] [address] Oct, [facility] [address] [id number] [address] [place] [address], [place] [address] Oct, [facility] [address] [id number] [address] [place] [address], [place] [address] Oct, [facility] [address] [id number] [address] [place] [address], [place] [address] Oct, [facility] [address] [id number] [address] [place] [address], [place] [address] Sep, [facility] [address] [id number] [address] [place] [address], [place] [address] Sep, [facility] [address] [id number] [address] [place] [address] Sep, [facility] [address] [id number] [address] [place] [address], [place] [address] Sep, [facility] [address] [id number] [address] [place] [address] Sep, [facility] [address] [id number] [address] [place] [address], [place] [address] Sep, [facility] [address] [id number] [address] [place] [address], [place] [address] Sep, [facility] [address] [id number] [address] [place] [address], [place] [address] Sep, [facility] [address] [id number] [address] [place] [address], [place] [address] Sep, [facility] [address] [id number] [address] [place] [address], [place] [address] Aug, [facility] [address] [id number] [address] [place] [address], [place] [address] Aug, [facility] [address] [id number] [address] [place] [address] Aug, [facility] [address] [id number] [address] [place] [address], [place] [address] Aug, [facility] [address] [id number] [address] [place] [address] 16 Aug, 2014 [facility] [address] [id number] [address] [place] [address] Aug, [facility] [address] [id number] [address] [place] [address], [place] [address] Aug, [facility] [address] [id number] [address] [place] [address] Aug, [facility] [address] [id number] [address] [place] [address], [place] [address] Aug, [facility] [address] [id number] [facility] [place] [address] 29 Jul, 2013 [facility] [address] [id number] [facility] [place] [address] 29 Jul, 2013 [facility] [address] [id number] [facility] [place] [address] Jul, 2013 [facility] [address] [id number] [facility] [place] [address] Jul, 2013 [facility] [address] [id number] [facility] [place] [address] Jul, 2013 [facility] [address] [id number] [address] [place] [address], [place] [address] Jul, 2013 [facility] [address] [id number] [address] [place] [address], [place] [address] Jul, 2013 [facility] [address] [id number] [address] [place] [address], [place] [address] Jul, 2013 [facility] [address] [id number] [address] [place] [address], [place] [address] Jul, [facility] [address] [id number] [address] [place] [address], [place] [address] Jul, [facility] [address] [id number] [address] [place] [address], [place] [address] Jun, [facility] [address] [id number] [address] [place] [address], [place] [address] Jun, [facility] [address] [id number] [address] [place] [address], [place] [address] Jun, [facility] [address] [id number] [address] [place] [address], [place] [address] Jun, [facility] [address] [id number] [address] [place] [address], [place] [address] Jun, [facility] [address] [id number] [address] [place] [address], [place] [address] Jun, [facility] [address] [id number] [facility] [place] [address] Jun, [facility] [address] [id number] [facility] [place] [address] Jun, [facility] [address] [id number] [facility] [place] [address] Jun, [facility] [address] [id number] [address] [place] [address], [place] [address] Jun, [facility] [address] [id number] [address] [place] [address], [place] [address] Jun, [facility] [address] [id number] [address] [place] [address], [place] [address] Jun, [facility] [address] [id number] [address] [place] [address], [place] [address] May, [facility] [address] [id number] [address] [place] [address], [place] [address] May, [facility] [address] [id number] [address] [place] [address], [place] [address] May, [facility] [address] [id number] [address] [place] [address], [place] [address] May, [facility] [address] [id number] [address] [place] [address], [place] [address] May, [facility] [address] [id number] [address] [place] [address], [place] [address] May, [facility] [address] [id number] [address] [place] [address], [place] [address] March, [facility] [address] [id number] [address] [place] [address], [place] [address] March, [facility] [address] [id number] [address] [place] [address], [place] [address] March, [facility] [address] [id number] [address] [place] [address], [place] [address] March, [facility] [address] [id number] [address] [place] [address], [place] [address] March, [facility] [address] [id number] [address] [place] [address], [place] [address] March, [facility] [address] [id number] [address] [place] [address], [place] [address] Feb, [facility] [address] [id number] [address] [place] [address], [place] [address] Feb, [facility] [address] [id number] [address] [place] [address], [place] [address] Feb, [facility] [address] [id number] [address] [place] [address], [place] [address] Feb, [facility] [address] [id number] [address] [place] [address], [place] [address] Jan, [facility] [address] [id number] [address] [place] [address], [place] [address] Jan, [facility] [address] [id number] [address] [place] [address], [place] [address] Jan, [facility] [address] [id number] [address] [place] [address], [place] [address] Jan, [facility] [address] [id number] [address] [place] [address], [place] [address] Jan, [facility] [address] [id number] [address] [place] [address], [place] [address] Jan, [facility] [address] [id number] [address] [place] [address], [place] [address] Jan, [facility] [address] [id number] [address] [place] [address], [place] [address] Jan, [facility] [address] [id number] [address] [place] [address], [place] [address] Jan, [facility] [address] [id number] [address] [place] [address], [place] [address] Jan, [facility] [address] [id number] [address] [place] [address], [place] [address] Jan, [facility] [address] [id number] [address] [place] [address], [place] [address] Jan, [facility] [address] [id number] [address] [place] [address], [place] [address] Dec, [facility] [address] [id number] [address] [place] [address], [place] [address] Dec, [facility] [address] [id number] [address] [place] [address], [place] [address] Dec, [facility] [address] [id number] [address] [place] [address], [place] [address] Dec, [facility] [address] [id number] [address] [place] [address], [place] [address] Dec, [facility] [address] [id number] [address] [place] [address], [place] [address] Dec, [facility] [address] [id number] [address] [place] [address], [place] [address] Nov, [facility] [address] [id number] [address] [place] [address], [place] [address] Nov, [facility] [address] [id number] [address] [place] [address], [place] [address] Oct, [facility] [address] [id number] [address] [place] [address], [place] [address] Oct, [facility] [address] [id number] [address] [place] [address], [place] [address] Oct, [facility] [address] [id number] [address] [place] [address], [place] [address] Oct, [facility] [address] [id number] [address] [place] [address], [place] [address] Oct, [facility] [address] [id number] [address] [place] [address], [place] [address] Oct, [facility] [address] [id number] [address] [place] [address], [place] [address] Sep, [facility] [address] [id number] [address] [place] [address], [place] [address] Sep, [facility] [address] [id number] [address] [place] [address], [place] [address] Sep, [facility] [address] [id number] [address] [place] [address], [place] [address] Sep, [facility] [address] [id number] [address] [place] [address], [place] [address] Aug, [facility] [address] [id number] [address] [place] [address], [place] [address] Aug, [facility] [address] [id number] [address] [place] [address], [place] [address] Aug, [facility] [address] [id number] [address] [place] [address], [place] [address] Jul, [facility] [address] [id number] [address] [place] [address], [place] [address] 14 Jul, 2013 [facility] [address] [id number] [address] [place] [address], [place] [address] Jul, [facility] [address] [id number] [address] [place] [address], [place] [address] Jun, [facility] [address] [id number] [address] [place] [address], [place] [address] Jun, [facility] [address] [id number] [address] [place] [address], [place] [address] Jun, [facility] [address] [id number] [address] [place] [address], [place] [address] Apr, [facility] [address] [id number] [address] [place] [address], [place] [address] Apr, [facility] [address] [id number] [address] [place] [address], [place] [address] March, [facility] [address] [id number] [address] [place] [address], [place] [address] March, [facility] [address] [id number] [address] [place] [address], [place] [address] March, [facility] [address] [id number] [address] [place] [address], [place] [address] March, [facility] [address] [id number] [address] [place] [address], [place] [address] Feb, [facility] [address] [id number] [address] [place] [address], [place] [address] Jan, [facility] [address] [id number] [address] [place] [address], [place] [address] Dec, [facility] [address] [id number] [address] [place] [address], [place] [address] Dec, [facility] [address] [id number] [address] [place] [address], [place] [address] Dec, [facility] [address] [id number] [address] [place] [address], [place] [address] Nov, [facility] [address] [id number] [address] [place] [address], [place] [address] Oct, [facility] [address] [id number] [address] [place] [address], [place] [address] Oct, [facility] [address] [id number] [address] [place] [address], [place] [address] Sep, [facility] [address] [id number] [address] [place] [address], [place] [address] Sep, [facility] [address] [id number] [address] [place] [address], [place] [address] Sep, [facility] [address] [id number] [address] [place] [address], [place] [address] Sep, [facility] [address] [id number] [address] [place] [address], [place] [address] Sep, [facility] [address] [id number] [address] [place] [address], [place] [address] Sep, [facility] [address] [id number] [address] [place] [address], [place] [address] Sep, [facility] [address] [id number] [address] [place] [address], [place] [address] Aug, [facility] [address] [id number] [address] [place] [address], [place] [address] Aug, [facility] [address] [id number] [address] [place] [address], [place] [address] Aug, [facility] [address] [id number] [address] [place] [address], [place] [address] Aug, [facility] [address] [id number] [address] [place] [address], [place] [address] Aug, [facility] [address] [id number] [address] [place] [address] Aug, [facility] [address] [id number] [address] [place] [address] Aug, [facility] [address] [id number] [address] [place] [address] Aug, [facility] [address] [id number] [address] [place] [address], [place] [address] Jul, [facility] [address] [id number] [address] [place] [address], [place] [address] Jul, [facility] [address] [id number] [address] [place] [address], [place] [address] Jun, [facility] [address] [id number] [address] [place] [address], [place] [address] May, [facility] [address] [id number] [address] [place] [address], [place] [address] Apr, [facility] [address] [id number] [address] [place] [address], [place] [address] Apr, [facility] [address] [id number] [address] [place] [address], [place] [address] Apr, [facility] [address] [id number] [address] [place] [address], [place] [address] March, [facility] [address] [id number] [address] [place] [address], [place] [address] March, [facility] [address] [id number] [address] [place] [address], [place] [address] March, [facility] [address] [id number] [address] [place] [address], [place] [address] March, [facility] [address] [id number] [address] [place] [address], [place] [address] March, [facility] [address] [id number] [address] [place] [address], [place] [address] March, [facility] [address] [id number] [address] [place] [address], [place] [address] March, [facility] [address] [id number] [address] [place] [address], [place] [address] Jan, [facility] [address] [id number] [address] [place] [address], [place] [address] Jan, [facility] [address] [id number] [address] [place] [address], [place] [address] Jan, [facility] [address] [id number] [address] [place] [address], [place] [address] Jan, [facility] [address] [id number] [address] [place] [address], [place] [address] Jan, [facility] [address] [id number] [address] [place] [address], [place] [address] 08 Dec, 2011 [facility] [address] [id number] [address] [place] [address], [place] [address] Dec, [facility] [address] [id number] [address] [place] [address], [place] [address] Nov, [facility] [address] [id number] [address] [place] [address], [place] [address] Nov, [facility] [address] [id number] [address] [place] [address], [place] [address] Nov, [facility] [address] [id number] [address] [place] [address], [place] [address] Nov, [facility] [address] [id number] [address] [place] [address], [place] [address] Oct, [facility] [address] [id number] [address] [place] [address], [place] [address] Oct, [facility] [address] [id number] [address] [place] [address], [place] [address] 14 Sep, 2011 [facility] [address] [id number] [address] [place] [address], [place] [address] Sep, [facility] [address] [id number] [address] [place] [address], [place] [address] Sep, [facility] [address] [id number] [address] [place] [address], [place] [address] May, [facility] [address] [id number] [address] [place] [address], [place] [address] Nov, [facility] [address] [id number] [address] [place] [address], [place] [address] 29 Oct, 2010 [facility] [address] [id number] [address] [place] [address], [place] [address] 14 Oct, 2010 [facility] [address] [id number] [address] [place] [id number] 08 Oct, 2010 [facility] [address] [id number] [address] [place] [address] 15 Sep, 2010 [facility] [address] [id number] [address] [place] [id number] Sep, [facility] [address] [id number] [address] [place] [address] Aug, [facility] [address] [id number] [address] [place] [address] March, [facility] [address] [id number] [address] [place] [address] Oct, [facility] [address] [id number] [address] [place] [address] Oct, [facility] [address] [id number] [address] [place] [address] Oct, [facility] [address] [id number] [address] [place] [phone] Oct, [facility] [address] [id number] [address] [place] [address] Sep, [facility] [address] [id number] [address] [place] [address] Sep, [facility] [address] [id number] [address] [place] [phone] Sep, [facility] [address] [id number] [address] [place] [address] Aug, [facility] [address] [address] [id number] [address] [place] [id number] 24 Aug, 2009 [facility] [address] [id number] [address] [place] [id number] Aug, [facility] [address] [id number] [address] [place] [id number] 10 Jan, 2009 IMMUNIZATIONS No Known Immunizations [...]
--- OUTSIDE RECORDS SUMMARY | 2020-06-13 16:44 | XMS REPORT ---
Author Author Jah Durant Doctor Organization [facility] Address Unknown Phone Unavailable Care Team Providers Care Schedule Maker Name Role Phone Migration, Doctor Unavailable Unavailable PROBLEMS Type Condition ICD9-CM Code ORS76-QC Code Onset Dates Condition S tatus SNOMED Code Problem Neuropathy G62.9 Active 329194658 Problem Chronic pain G89.29 Active 9484217 1 Problem Overactive bladder N32.81 Active 2 77975632 Problem Hypothyroid E03.9 Active 09686047 Problem Irritable bowel syndrome with diarrhea K58.0 Active 389771780 Problem MCC current use of insulin Z79.4 Active 277253105 Problem Type 2 diabetes mellitus with hyperglycemia E11.65 Active 91629366 Problem Chronic obstructive pulmonary disease, unspecified COPD ty pe J44.9 Active 16028873 Problem Gastroesophageal reflux disease with esophagitis K 21.0 Active 441836096 Problem Major depressive disorder, recurrent, in full remission F33.42 Active 82159953 Problem Mixed hyperlipidemia E78.2 Active 302814335 Problem Essential (primary) hypertension I10 Active 15751259 Problem Anxiety disorder, unspecified type F41.9 Active 968227681 Problem Gastroparesis K31.84 Active 179936 006 Problem 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 Active [id number] ALLERGIES No Information ENCOUNTERS Encounter Location Date Diagnosis [facility] [address] [facility] [id number] [address] [place] [address] Jun, Other chronic pain G89.29 [facility] [address] [facility] [id number] [address] [place] [address] Jun, [facility] [address] [facility] [id number] [address] [place] [address] Jun, Chronic pain G89.29 [facility] [address] [facility] [id number] [address] [place] [address] Jun, Neuropathy G62.9 [facility] [address] [place] [id number] [address] [place] [id number] Jun, Encounter for Medicare annua l wellness [...] and Encounter for immunization Z23 [place] [address] [facility] [id number] [address] [place] [address] Jun, Irritable bowel syndrome wit h diarrhea K58.0 [place] [address] [facility] [id number] [address] [place] [address] May, Chronic pain G89.29 [place] [address] [place] [id number] [address] [place] [address] May, Type 2 diabetes mellitus wit h hyperglycemia E11.65 and Neuropathy G62.9 [place] [address] [facility] [id number] [address] [place] [address] May, Chronic pain G89.29 [place] [address] [facility] [id number] [address] [place] [address] Apr, Poison maryam dermatitis L23.7 [place] [address] [facility] [id number] [address] [place] [address] Apr, Chronic pain G89.29 [place] [address] [facility] [id number] [address] [place] [address] March, Type 2 diabetes mellitus wit h hyperglycemia E11.65 [place] [address] [facility] [id number] [address] [place] [address] March, Chronic pain G89.29 [place] [address] [facility] [id number] [address] [place] [address] March, [address] [address] Feb, [facility] [address] [facility] [id number] [address] [place] [address] 09 Feb, 2019 Other chronic pain G89.29 an d Chronic pain G89.29 [facility] [address] [facility] [id number] [address] [place] [address] Jan, Mixed hyperlipidemia E78.2 [facility] [address] [facility] [id number] [address] [place] [address] Jan, Chronic pain G89.29 [facility] [address] [facility] [id number] [address] [place] [address] 08 Jan, 2019 Type 2 diabetes mellitus wit h hyperglycemia E11.65 ; Mixed hyperlipidemia E78.2 ; MCC current use of insulin Z79.4 ; Acquired hypothyroidism E03.9 and Essential (primary) hypertension I10 [facility] [address] [facility] [id number] [address] [place] [address] Dec, Chronic pain G89.29 [facility] [address] [facility] [id number] [address] [place] [address] Nov, Chronic pain G89.29 [facility] [address] [facility] [id number] [address] [place] [address] Nov, [facility] [address] [facility] [id number] [address] [place] [address] Oct, Chronic pain G89.29 [facility] [address] [facility] [id number] [address] [place] [address] Oct, [facility] [address] [facility] [id number] [address] [place] [address] Sep, [facility] [address] [facility] [id number] [address] [place] [address] Sep, Type 2 diabetes mellitus wit h hyperglycemia E11.65 [facility] [address] [facility] [id number] [address] [place] [address] 16 Sep, 2018 Chronic pain G89.29 [facility] [address] [address] Sep, [place] [address] [address] Sep, Type 2 diabetes mellitus wit h hyperglycemia E11.65 ; Irritable bowel syndrome with diarrhea K58.0 ; Gastroparesis K31.84 ; 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 and Dermatitis L30.9 [place] [address] [address] Aug, Chronic pain G89.29 [place] [address] [address] Jul, Chronic pain G89.29 [place] [address] [address] Jun, Type 2 diabetes mellitus wit h hyperglycemia E11.65 ; Neuropathy G62.9 ; Recurrent major depressive disorder, in partial remission F33.41 ; Chronic pain G89.29 and Hypertriglyceridemia E78.1 [place] [address] [address] Jun, Hypothyroid E03.9 [place] [address] [address] Jun, Major depressive disorder, r ecurrent episode, moderate F33.1 and Anxiety disorder, unspecified type F41.9 [place] [address] [address] Jun, [place] [address] [address] Jun, Type 2 diabetes mellitus wit h hyperglycemia E11.65 ; 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 ; Recurrent major depressive disorder, in partial remission F33.41 ; Hypothyroid E03.9 ; Candidal dermatitis B37.2 and Weakness generalized R53.1 [place] [address] [address] May, [facility] [address] [facility] [id number] [address] [place] [address] May, [facility] [address] [facility] [id number] [address] [place] [phone] May, [facility] [address] [facility] [id number] [address] [place] [address] May, Generalized abdominal pain R 10.84 and Candidal dermatitis B37.2 [facility] [address] [facility] [id number] [address] [place] [address] May, [facility] [address] [facility] [id number] [address] [place] [address] May, [facility] [address] [facility] [id number] [address] [place] [address] May, Nodular radiologic density R 93.8 ; Weight loss, unintentional R63.4 and Pulmonary emphysema, unspecified emphysema type J43.9 [place] [address] [place] [id number] [address] [place] [address] May, Chronic pain G89.29 [place] [address] [place] [id number] [address] [place] [address] May, Syncope and collapse R55 ; C hronic fatigue R53.[address] lung screening R91.8 [place] [address] [place] [id number] [address] [place] [address] May, [place] [address] [place] [id number] [address] [place] [address] Apr, Chronic fatigue R53.82 ; Abn ormal chest CT R93.8 ; Elevated erythrocyte sedimentation rate R70.0 ; Hypothyroid E03.9 and Recurrent major depressive disorder, in partial remission F33.41 [place] [address] [facility] [id number] [address] [place] [address] Apr, Hypothyroid E03.9 [place] [address] [facility] [id number] [address] [place] [address] Apr, Depression F32.9 [place] [address] [facility] [id number] [address] [place] [address] Apr, [place] [address] [facility] [id number] [address] [place] [address] March, [place] [address] [facility] [id number] [address] [place] [address] March, Hypothyroid E03.9 [place] [address] [facility] [id number] [address] [place] [address] March, Diabetes mellitus E11.9 and Hypothyroid E03.9 [place] [address] [facility] [id number] [address] [place] [address] March, Diabetes mellitus E11.9 [place] [address] [place] [id number] [address] [place] [address] March, Hypothyroid E03.9 and Elevat ed liver enzymes R74.8 [place] [address] [facility] [id number] [address] [place] [address] March, Type 2 diabetes mellitus wit h [...] disorder, in partial remission F33.41 [place] [address] [facility] [id number] [address] [place] [address] Feb, Chronic pain G89.29 [place] [address] [place] [id number] [address] [place] [address] Feb, Type 2 diabetes mellitus wit h hyperglycemia E11.65 and Skin lesion of scalp L98.9 [place] [address] [place] [id number] [address] [place] [address] Feb, [place] [address] [facility] [id number] [address] [place] [address] Jan, Type 2 diabetes mellitus wit h [...] bowel syndrome with diarrhea K58.0 [place] [address] [facility] [id number] [address] [place] [address] Jan, [place] [address] [place] [id number] [address] [place] [address] Jan, Controlled substance agreeme nt signed Z79.899 [place] [address] [place] [id number] [address] [place] [address] Dec, Type 2 diabetes mellitus wit h hyperglycemia E11.65 ; Controlled substance agreement signed Z79.899 ; 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 ; Essential (primary) hypertension I10 ; Hypothyroid E03.9 ; Neuropathy G62.9 ; Depression F32.9 ; Mixed hyperlipidemia E78.2 ; Irritable bowel syndrome with diarrhea K58.0 ; Gastroesophageal reflux disease with esophagitis K21.0 ; Thrombocytosis D47.3 ; Current non-adherence to medical treatment Z91.19 and Overweight (BMI 25.0-29.9) E66.3 [place] [address] [place] [id number] [address] [place] [address] Dec, Controlled substance agreeme nt signed Z79.899 [place] [address] [place] [id number] [address] [place] [address] Nov, Type 2 diabetes mellitus wit h hyperglycemia E11.65 and Current non- adherence to medical treatment Z91.19 [place] [address] [place] [id number] [address] [place] [address] Nov, [facility] [address] [id number] [address] [place] [address] Nov, Chronic pain G89.29 [facility] [address] [id number] [address] [place] [address] Nov, [facility] [address] [facility] [id number] [address] [place] [address] Nov, Hypothyroid E03.9 [facility] [address] [id number] [address] [place] [address] Nov, Hypothyroid E03.9 [facility] [address] [id number] [address] [place] [address] Nov, Pulmonary emphysema, unspeci fied emphysema type J43.9 and Irritable bowel syndrome with diarrhea K58.0 [facility] [address] [facility] [id number] [address] [place] [phone] Oct, [facility] [address] [facility] [id number] [address] [place] [address] Oct, [facility] [address] [id number] [address] [place] [phone] Oct, [facility] [address] [facility] [id number] [address] [place] [address] Oct, [facility] [address] [facility] [id number] [address] [place] [address] Oct, Chronic pain G89.29 [facility] [address] [id number] [address] [place] [address] Oct, Diabetes mellitus E11.9 ; De pression F32.9 ; Mixed hyperlipidemia E78.2 ; Hypotension, unspecified hypotension type I95.9 ; Pulmonary emphysema, unspecified emphysema type J43.9 and Weight loss, unintentional R63.4 [facility] [address] [facility] [id number] [address] [place] [address] Oct, Chronic pain G89.29 [facility] [address] [place] [id number] [address] [place] [address] Sep, Chronic pain G89.29 [facility] [address] [place] [id number] [place] [address] Sep, Hypothyroid E03.9 and Diabet es mellitus E11.9 [facility] [address] [place] [id number] [address] [place] [address] Aug, Type 2 diabetes mellitus wit h hyperglycemia E11.65 ; MCC current use of insulin Z79.4 ; Essential (primary) hypertension I10 ; Hypothyroid E03.9 ; Neuropathy G62.9 ; Chronic pain G89.29 ; Mixed hy perlipidemia E78.2 and Encounter for immunization Z23 [facility] [address] [place] [id number] [address] [place] [address] Aug, Chronic pain G89.29 [place] [address] [address] Aug, Overactive bladder N32.81 ; Diabetes mellitus E11.9 and Chronic pain G89.29 [place] [id number] [place] [id number] [address] [place] [address] Jul, [place] [address] [address] Jun, [place] [address] [address] Jun, [facility] [address] [place] [id number] [address] [place] [address] Jun, Hypothyroid E03.9 [facility] [address] [place] [id number] [address] [place] [address] Jun, Diabetes mellitus E11.9 ; Hy pothyroid E03.9 ; Neuropathy G62.9 ; Chronic pain G89.29 and Neck mass R22.1 [facility] [address] [place] [id number] [address] [place] [address] Apr, [facility] [address] [place] [id number] [address] [place] [address] Apr, Acute cystitis without hemat uria N30.00 [facility] [address] [place] [id number] [address] [place] [address] March, [facility] [address] [place] [id number] [address] [place] [address] March, [facility] [address] [address] March, Near syncope R55 [facility] [address] [address] Feb, [facility] [address] [address] Feb, Chronic pain G89.29 [place] [address] [address] Feb, [facility] [address] [place] [id number] [address] [place] [address] Feb, [facility] [address] [address] Jan, Chronic pain G89.29 [facility] [address] [address] Jan, [facility] [address] [address] Jan, [facility] [address] [place] [id number] [address] [place] [address] 14 Jan, 2017 Diabetes mellitus E11.9 ; Hy pothyroid E03.9 ; GERD (gastroesophageal reflux disease) K21.9 ; Insomnia G47.00 ; Functional diarrhea K59.1 ; Neuropathy G62.9 ; Depression F32.9 ; Chronic pain G89.29 ; Irritable bowel syndrome with diarrhea K58.0 ; Overactive bladder N32.81 ; Mixed hyperlipidemia E78.2 and Bronchitis J40 [facility] [address] [place] [id number] [address] [place] [phone] Dec, [facility] [address] [facility] [id number] [address] [place] [address] Dec, [facility] [address] [facility] [id number] [address] [place] [id number] Dec, [facility] [address] [facility] [id number] [address] [place] [address] Dec, [facility] [address] [facility] [id number] [address] [place] [address] Dec, Chronic pain G89.29 [facility] [address] [facility] [id number] [address] [place] [address] Dec, [facility] [address] [place] [id number] [address] [place] [address] Dec, [facility] [address] [place] [id number] [address] [place] [address] Dec, Type 2 diabetes mellitus wit h foot ulcer E11.621 [facility] [address] [place] [id number] [address] [place] [address] 17 Dec, 2016 Type 2 diabetes mellitus wit h foot ulcer E11.621 [facility] [address] [place] [address] 14 Dec, 2016 HTN (hypertension) I10 ; Dep ression F32.9 ; Type 2 diabetes mellitus with foot ulcer E11.621 ; Functional diarrhea K59.1 ; Irritable bowel syndrome with diarrhea K58.0 ; Chronic pain G89.29 ; Insomnia G47.00 ; Overactive bladder N32.81 ; Mixed hyperlipidemia E78.2 ; Gastroesophageal reflux disease with esophagitis K21.0 and Acquired hypothyroidism E03.9 [facility] [address] [place] [id number] [address] [place] [address] Nov, [facility] [address] [place] [address] Oct, [place] [address] [address] Oct, [place] [address] [address] Oct, [place] [address] [address] Sep, Functional diarrhea 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 ; HTN (hypertension) I10 ; Diabetes mellitus E11.9 ; Depression F32.9 ; Overactive bladder N32.81 ; Mixed hyperlipidemia E78.2 ; Gastroesophageal reflux disease without esophagitis K21.9 ; Chronic pain G89.29 ; Insomnia G47.00 and Acquired hypothyroidism E03.9 [place] [address] [address] Sep, [place] [address] [address] Aug, Encounter for immunization Z 23 [place] [address] [address] 06 Aug, 2016 [place] [address] [address] Jul, [place] [address] [address] Jun, Type 2 diabetes mellitus wit hout complications E11.9 ; HTN (hypertension) I10 ; Hypothyroid E03.9 ; Neuropathy G62.9 ; Depression F32.9 ; Chronic pain G89.29 ; GERD (gastroesophageal reflux disease) K21.9 ; Insomnia G47.00 ; Overactive bladder N32.81 ; Mixed hyperlipidemia E78.2 ; Diarrhea of infectious origin A09 and Environmental allergies Z91.09 [place] [address] [place] [id number] [address] [place] [address] Apr, [place] [address] [address] March, Hypothyroidism, unspecified E03.9 and Mixed hyperlipidemia E78.2 [place] [address] [place] [id number] [address] [place] [address] March, Diabetes mellitus E11.9 ; HT N (hypertension) I10 ; Hypothyroid E03.9 ; Depression F32.9 ; Overactive bladder N32.81 ; Other chronic pain G89.29 ; Lumbago with sciatica, unspecified side M54.40 ; Environmental allergies Z91.09 and Gastroesophageal reflux disease, esophagitis presence not specified K21.9 [place] [address] [place] [id number] [address] [place] [address] March, [place] [address] [address] Jan, HTN (hypertension) I10 ; Hyp othyroid E03.9 ; Neuropathy G62.9 ; Diabetes mellitus E11.9 ; Chronic pain G89.29 ; GERD (gastroesophageal reflux disease) K21.9 ; Overactive bladder N32.81 and Depression F32.9 [place] [address] [place] [id number] [address] [place] [address] Dec, Ear pain, left H92.02 ; HTN (hypertension) I10 ; Hypothyroid E03.9 ; Neuropathy G62.9 ; Diabetes mellitus E11.9 ; Depression F32.9 ; GERD (gastroesophageal reflux disease) K21.9 ; Insomnia G47.00 and Overactive bladder N32.81 [place] [address] [place] [id number] [address] [place] [address] Nov, Overactive bladder N32.81 an d Chronic pain G89.29 [place] [address] [facility] [id number] [address] [place] [address] Nov, Kidney failure N19 [place] [address] [place] [id number] [address] [place] [id number] Nov, [place] [address] [address] [place] [id number] [address] [place] [phone] Nov, [place] [address] [address] Nov, Diabetes mellitus E11.9 ; De pression F32.9 ; Chronic pain G89.29 ; GERD (gastroesophageal reflux disease) K21.9 ; Insomnia G47.00 ; HTN (hypertension) I10 ; Hypothyroid E03.9 ; COPD (chronic obstructive pulmonary disease) J44.9 ; Bladder incontinence R32 and Incontinence R32 [place] [address] [address] Sep, Type 2 diabetes mellitus wit h foot ulcer E11.621 and Chromosomal abnormality, 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 [address] Sep, [place] [address] [id number] Aug, [address] [address] Aug, [place] [address] [address] Aug, HTN (hypertension) I10 ; Enc ounter for immunization Z23 ; Hypothyroid E03.9 ; Neuropathy G62.9 ; Diabetes mellitus E11.9 ; Depression F32.9 ; Chronic pain G89.29 ; GERD (gastroesophageal reflux disease) K21.9 ; Insomnia G47.00 and COPD (chronic obstructive pulmonary disease) J44.9 [place] [address] [id number] Jun, [place] [address] [id number] Jun, [address] [phone] May, Essential hypertension, ivis gn 401.1 ; Unspecified hypothyroidism 244.9 ; Insomnia, unspecified 780.52 ; Shortness of breath 786.05 ; Depression 311 ; COPD (chronic obstructive pulmonary disease) 496 ; GERD (gastroesophageal reflux disease) 530.81 and Diabetes 1.5, 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 [facility] [address] [facility] [id number] [address] [place] [phone] May, [facility] [address] [facility] [id number] [address] [place] [phone] May, [facility] [address] [facility] [id number] [address] [place] [id number] May, Shortness of breath 786.05 ; Essential hypertension, benign 401.1 ; Diabetes mellitus 250.00 ; Hyperlipidemia 272.4 ; Hypothyroid 244.9 ; Insomnia 780.52 and Cough 786.2 [facility] [address] [facility] [id number] [address] [place] [id number] Apr, [facility] [address] [facility] [id number] [address] [place] [address] March, Shortness of breath 786.05 ; Nausea with vomiting 787.01 ; Essential hypertension, benign 401.1 ; Diabetes mellitus 250.00 ; Hyperlipidemia 272.4 and Hypothyroid 244.9 [facility] [address] [place] [id number] [address] [place] [id number] Feb, [facility] [address] [facility] [id number] [address] [place] [id number] Feb, [facility] [address] [facility] [id number] [address] [place] [id number] Jan, [facility] [address] [facility] [id number] [address] [place] [id number] Jan, [facility] [address] [facility] [id number] [address] [place] [id number] Jan, [facility] [address] [facility] [id number] [address] [place] [id number] Jan, [facility] [address] [facility] [id number] [address] [place] [id number] Jan, [facility] [address] [place] [id number] [address] [place] [id number] Jan, [facility] [address] [id number] [address] [place] [address], [place] [address] Jan, [facility] [address] [id number] [address] [place] [address], [place] [address] Jan, [facility] [address] [id number] [address] [place] [address], [place] [address] Jan, [facility] [address] [id number] [address] [place] [address], [place] [address] Jan, [facility] [address] [id number] [address] [place] [address], [place] [address] Dec, 2014 [facility] [address] [id number] [address] [place] [address], [place] [address] Dec, 2014 [facility] [address] [id number] [address] [place] [address], [place] [address] Dec, 2014 [facility] [address] [id number] [address] [place] [address], [place] [address] Dec, 2014 [facility] [address] [id number] [address] [place] [address], [place] [address] Dec, 2014 [facility] [address] [id number] [address] [place] [address], [place] [address] Dec, 2014 [facility] [address] [id number] [address] [place] [address], [place] [address] Dec, 2014 [facility] [address] [id number] [address] [place] [id number] Dec, 2014 [facility] [address] [id number] [address] [place] [address], [place] [address] Dec, 2014 [facility] [address] [id number] [address] [place] [id number] Dec, 2014 [facility] [address] [id number] [address] [place] [id number] Oct, [facility] [address] [id number] [address] [place] [address], [place] [address] Oct, [facility] [address] [id number] [address] [place] [address], [place] [address] Oct, [facility] [address] [id number] [address] [place] [address], [place] [address] Oct, [facility] [address] [id number] [address] [place] [address], [place] [address] Oct, [facility] [address] [id number] [address] [place] [address], [place] [address] Oct, [facility] [address] [id number] [address] [place] [address], [place] [address] Oct, [facility] [address] [id number] [address] [place] [address], [place] [address] Oct, [facility] [address] [id number] [address] [place] [address], [place] [address] Oct, [facility] [address] [id number] [address] [place] [address], [place] [address] Oct, [facility] [address] [id number] [address] [place] [address], [place] [address] Oct, [facility] [address] [id number] [address] [place] [address], [place] [address] Oct, [facility] [address] [id number] [address] [place] [address], [place] [address] Oct, [facility] [address] [id number] [address] [place] [address], [place] [address] Oct, [facility] [address] [id number] [address] [place] [address], [place] [address] Sep, [facility] [address] [id number] [address] [place] [address], [place] [address] Sep, [facility] [address] [id number] [address] [place] [id number] Sep, [facility] [address] [id number] [address] [place] [address], [place] [address] Sep, [facility] [address] [id number] [address] [place] [id number] Sep, [facility] [address] [id number] [address] [place] [address], [place] [address] Sep, [facility] [address] [id number] [address] [place] [address], [place] [address] Sep, [facility] [address] [id number] [address] [place] [address], [place] [address] Sep, [facility] [address] [id number] [address] [place] [address], [place] [address] Sep, [facility] [address] [id number] [address] [place] [address], [place] [address] Aug, [facility] [address] [id number] [address] [place] [address], [place] [address] Aug, [facility] [address] [id number] [address] [place] [id number] Aug, [facility] [address] [id number] [address] [place] [address], [place] [address] Aug, [facility] [address] [id number] [address] [place] [id number] 16 Aug, 2014 [facility] [address] [id number] [address] [place] [id number] Aug, [facility] [address] [id number] [address] [place] [address], [place] [address] Aug, [facility] [address] [id number] [address] [place] [id number] Aug, [facility] [address] [id number] [address] [place] [address], [place] [address] Aug, [facility] [address] [id number] [facility] [place] [address] 29 Jul, 2013 [facility] [address] [id number] [facility] [place] [address] 29 Jul, 2013 [facility] [address] [id number] [facility] [place] [address] Jul, 2013 [facility] [address] [id number] [facility] [place] [address] Jul, 2013 [facility] [address] [id number] [facility] [place] [address] Jul, 2013 [facility] [address] [id number] [address] [place] [address], [place] [address] Jul, 2013 [facility] [address] [id number] [address] [place] [address], [place] [address] Jul, 2013 [facility] [address] [id number] [address] [place] [address], [place] [address] Jul, 2013 [facility] [address] [id number] [address] [place] [address], [place] [address] Jul, [facility] [address] [id number] [address] [place] [address], [place] [address] Jul, [facility] [address] [id number] [address] [place] [address], [place] [address] Jun, [facility] [address] [id number] [address] [place] [address], [place] [address] Jun, [facility] [address] [id number] [address] [place] [address], [place] [address] Jun, [facility] [address] [id number] [address] [place] [address], [place] [address] Jun, [facility] [address] [id number] [address] [place] [address], [place] [address] Jun, [facility] [address] [id number] [address] [place] [address], [place] [address] Jun, [facility] [address] [id number] [facility] [place] [address] Jun, [facility] [address] [id number] [facility] [place] [address] Jun, [facility] [address] [id number] [facility] [place] [address] Jun, [facility] [address] [id number] [address] [place] [address], [place] [address] Jun, [facility] [address] [id number] [address] [place] [address], [place] [address] Jun, [facility] [address] [id number] [address] [place] [address], [place] [address] Jun, [facility] [address] [id number] [address] [place] [address], [place] [address] May, [facility] [address] [id number] [address] [place] [address], [place] [address] May, [facility] [address] [id number] [address] [place] [address], [place] [address] May, [facility] [address] [id number] [address] [place] [address], [place] [address] May, [facility] [address] [id number] [address] [place] [address], [place] [address] May, [facility] [address] [id number] [address] [place] [address], [place] [address] May, [facility] [address] [id number] [address] [place] [address], [place] [address] March, [facility] [address] [id number] [address] [place] [address], [place] [address] March, [facility] [address] [id number] [address] [place] [address], [place] [address] March, [facility] [address] [id number] [address] [place] [address], [place] [address] March, [facility] [address] [id number] [address] [place] [address], [place] [address] March, [facility] [address] [id number] [address] [place] [address], [place] [address] March, [facility] [address] [id number] [address] [place] [address], [place] [address] Feb, [facility] [address] [id number] [address] [place] [address], [place] [address] Feb, [facility] [address] [id number] [address] [place] [address], [place] [address] Feb, [facility] [address] [id number] [address] [place] [address], [place] [address] Feb, [facility] [address] [id number] [address] [place] [address], [place] [address] Jan, [facility] [address] [id number] [address] [place] [address], [place] [address] Jan, [facility] [address] [id number] [address] [place] [address], [place] [address] Jan, [facility] [address] [id number] [address] [place] [address], [place] [address] Jan, [facility] [address] [id number] [address] [place] [address], [place] [address] Jan, [facility] [address] [id number] [address] [place] [address], [place] [address] Jan, [facility] [address] [id number] [address] [place] [address], [place] [address] Jan, [facility] [address] [id number] [address] [place] [address], [place] [address] Jan, [facility] [address] [id number] [address] [place] [address], [place] [address] Jan, [facility] [address] [id number] [address] [place] [address], [place] [address] Jan, [facility] [address] [id number] [address] [place] [address], [place] [address] Jan, [facility] [address] [id number] [address] [place] [address], [place] [address] Jan, [facility] [address] [id number] [address] [place] [address], [place] [address] Dec, [facility] [address] [id number] [address] [place] [address], [place] [address] Dec, [facility] [address] [id number] [address] [place] [address], [place] [address] Dec, [facility] [address] [id number] [address] [place] [address], [place] [address] Dec, [facility] [address] [id number] [address] [place] [address], [place] [address] Dec, [facility] [address] [id number] [address] [place] [address], [place] [address] Dec, [facility] [address] [id number] [address] [place] [address], [place] [address] Nov, [facility] [address] [id number] [address] [place] [address], [place] [address] Nov, [facility] [address] [id number] [address] [place] [address], [place] [address] Oct, [facility] [address] [id number] [address] [place] [address], [place] [address] Oct, [facility] [address] [id number] [address] [place] [address], [place] [address] Oct, [facility] [address] [id number] [address] [place] [address], [place] [address] Oct, [facility] [address] [id number] [address] [place] [address], [place] [address] Oct, [facility] [address] [id number] [address] [place] [address], [place] [address] Oct, [facility] [address] [id number] [address] [place] [address], [place] [address] Sep, [facility] [address] [id number] [address] [place] [address], [place] [address] Sep, [facility] [address] [id number] [address] [place] [address], [place] [address] Sep, [facility] [address] [id number] [address] [place] [address], [place] [address] Sep, [facility] [address] [id number] [address] [place] [address], [place] [address] Aug, [facility] [address] [id number] [address] [place] [address], [place] [address] Aug, [facility] [address] [id number] [address] [place] [address], [place] [address] Aug, [facility] [address] [id number] [address] [place] [address], [place] [address] Jul, [facility] [address] [id number] [address] [place] [address], [place] [address] 14 Jul, 2013 [facility] [address] [id number] [address] [place] [address], [place] [address] Jul, [facility] [address] [id number] [address] [place] [address], [place] [address] Jun, [facility] [address] [id number] [address] [place] [address], [place] [address] Jun, [facility] [address] [id number] [address] [place] [address], [place] [address] Jun, [facility] [address] [id number] [address] [place] [address], [place] [address] Apr, [facility] [address] [id number] [address] [place] [address], [place] [address] Apr, [facility] [address] [id number] [address] [place] [address], [place] [address] March, [facility] [address] [id number] [address] [place] [address], [place] [address] March, [facility] [address] [id number] [address] [place] [address], [place] [address] March, [facility] [address] [id number] [address] [place] [address], [place] [address] March, [facility] [address] [id number] [address] [place] [address], [place] [address] Feb, [facility] [address] [id number] [address] [place] [address], [place] [address] Jan, [facility] [address] [id number] [address] [place] [address], [place] [address] Dec, [facility] [address] [id number] [address] [place] [address], [place] [address] Dec, [facility] [address] [id number] [address] [place] [address], [place] [address] Dec, [facility] [address] [id number] [address] [place] [address], [place] [address] Nov, [facility] [address] [id number] [address] [place] [address], [place] [address] Oct, [facility] [address] [id number] [address] [place] [address], [place] [address] Oct, [facility] [address] [id number] [address] [place] [address], [place] [address] Sep, [facility] [address] [id number] [address] [place] [address], [place] [address] Sep, [facility] [address] [id number] [address] [place] [address], [place] [address] Sep, [facility] [address] [id number] [address] [place] [address], [place] [address] Sep, [facility] [address] [id number] [address] [place] [address], [place] [address] Sep, [facility] [address] [id number] [address] [place] [address], [place] [address] Sep, [facility] [address] [id number] [address] [place] [address], [place] [address] Sep, [facility] [address] [id number] [address] [place] [address], [place] [address] Aug, [facility] [address] [id number] [address] [place] [address], [place] [id number] Aug, [facility] [address] [id number] [address] [place] [address], [place] [address] Aug, [facility] [address] [id number] [address] [place] [address], [place] [address] Aug, [facility] [address] [id number] [address] [place] [address], [place] [address] Aug, [facility] [address] [id number] [address] [place] [id number] Aug, [facility] [address] [id number] [address] [place] [id number] Aug, [facility] [address] [id number] [address] [place] [id number] Aug, [facility] [address] [id number] [address] [place] [address], [place] [address] Jul, [facility] [address] [id number] [address] [place] [address], [place] [id number] Jul, [facility] [address] [id number] [address] [place] [address], [place] [address] Jun, [facility] [address] [id number] [address] [place] [address], [place] [address] May, [facility] [address] [id number] [address] [place] [address], [place] [address] Apr, [facility] [address] [id number] [address] [place] [address], [place] [address] Apr, [facility] [address] [id number] [address] [place] [address], [place] [address] Apr, [facility] [address] [id number] [address] [place] [address], [place] [address] March, [facility] [address] [id number] [address] [place] [address], [place] [address] March, [facility] [address] [id number] [address] [place] [address], [place] [id number] March, [facility] [address] [id number] [address] [place] [address], [place] [address] March, [facility] [address] [id number] [address] [place] [address], [place] [address] March, [facility] [address] [id number] [address] [place] [address], [place] [address] March, [facility] [address] [id number] [address] [place] [address], [place] [id number] March, [facility] [address] [id number] [address] [place] [address], [place] [address] Jan, [facility] [address] [id number] [address] [place] [address], [place] [id number] Jan, [facility] [address] [id number] [address] [place] [address], [place] [address] Jan, [facility] [address] [id number] [address] [place] [address], [place] [address] Jan, [facility] [address] [id number] [address] [place] [address], [place] [address] Jan, [facility] [address] [id number] [address] [place] [address], [place] [id number] 08 Dec, 2011 [facility] [address] [id number] [address] [place] [address], [place] [address] Dec, [facility] [address] [id number] [address] [place] [address], [place] [address] Nov, [facility] [address] [id number] [address] [place] [address], [place] [address] Nov, [facility] [address] [id number] [address] [place] [address], [place] [address] Nov, [facility] [address] [id number] [address] [place] [address], [place] [address] Nov, [facility] [address] [id number] [address] [place] [address], [place] [address] Oct, [facility] [address] [id number] [address] [place] [address], [place] [address] Oct, [facility] [address] [id number] [address] [place] [address], [place] [address] 14 Sep, 2011 [facility] [address] [id number] [address] [place] [address], [place] [address] Sep, [facility] [address] [id number] [address] [place] [address], [place] [address] Sep, [facility] [address] [id number] [address] [place] [address], [place] [address] May, [facility] [address] [id number] [address] [place] [address], [place] [address] Nov, [facility] [address] [id number] [address] [place] [address], [place] [id number] 29 Oct, 2010 [facility] [address] [id number] [address] [place] [address], [place] [address] 14 Oct, 2010 [facility] [address] [id number] [address] [place] [id number] 08 Oct, 2010 [facility] [address] [id number] [address] [place] [id number] 15 Sep, 2010 [facility] [address] [id number] [address] [place] [id number] Sep, [facility] [address] [id number] [address] [place] [id number] Aug, [facility] [address] [id number] [address] [place] [id number] March, [facility] [address] [id number] [address] [place] [id number] Oct, [facility] [address] [id number] [address] [place] [id number] Oct, [facility] [address] [id number] [address] [place] [id number] Oct, [facility] [address] [id number] [address] [place] [id number] Oct, [facility] [address] [id number] [address] [place] [id number] Sep, [facility] [address] [id number] [address] [place] [id number] Sep, [facility] [facility] [address] [id number] [address] [place] [id number] Sep, [facility] [address] [id number] [address] [place] [id number] Aug, [facility] [address] [id number] [address] [place] [id number] 24 Aug, 2009 [facility] [address] [id number] [address] [place] [id number] Aug, [facility] [address] [id number] [address] [place] [id number] 10 Jan, 2009 IMMUNIZATIONS No Known Immunizations [...]
--- OUTSIDE RECORDS SUMMARY | 2020-06-13 16:44 | XMS REPORT ---
Author Author Jah Durant Doctor Organization [facility] Address Unknown Phone Unavailable Care Team Providers Care Demo Specialist Name Role Phone Migration, Doctor Unavailable Unavailable PROBLEMS Type Condition ICD9-CM Code BKL46-NU Code Onset Dates Condition S tatus SNOMED Code Problem Neuropathy G62.9 Active 346317595 Problem Chronic pain G89.29 Active 7803922 1 Problem Overactive bladder N32.81 Active 2 59412531 Problem Hypothyroid E03.9 Active 38757048 Problem Irritable bowel syndrome with diarrhea K58.0 Active 829884130 Problem halfway current use of insulin Z79.4 Active 261729921 Problem Type 2 diabetes mellitus with hyperglycemia E11.65 Active 16194514 Problem Chronic obstructive pulmonary disease, unspecified COPD ty pe J44.9 Active 10178171 Problem Gastroesophageal reflux disease with esophagitis K 21.0 Active 413449919 Problem Major depressive disorder, recurrent, in full remission F33.42 Active 22957387 Problem Mixed hyperlipidemia E78.2 Active 981259984 Problem Essential (primary) hypertension I10 Active 94080720 Problem Anxiety disorder, unspecified type F41.9 Active 798013873 Problem Gastroparesis K31.84 Active 215984 006 Problem 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 Active 748160081 ALLERGIES No Information ENCOUNTERS Encounter Location Date Diagnosis [facility] [address] [facility] [id number] [address] [place] [address] Jun, Other chronic pain G89.29 [facility] [address] [facility] [id number] [address] [place] [address] Jun, [facility] [address] [facility] [id number] [address] [place] [address] Jun, Chronic pain G89.29 [facility] [address] [facility] [id number] [address] [place] [address] Jun, Neuropathy G62.9 [facility] [address] [place] [id number] [address] [place] [address] Jun, Encounter for Medicare annua l wellness exam Z00.00 ; Type 2 diabetes mellitus with hyperglycemia E11.65 ; Mixed hyperlipidemia E78.2 ; Hypothyroid E03.9 ; Gastroesophageal reflux disease with esophagitis K21.0 ; Essential (primary) hypertension I10 ; Major depressive disorder, recurrent, in full remission F33.42 ; Chronic obstructive pulmonary disease, unspecified COPD type J44.9 ; Neuropathy G62.9 and Encounter for immunization Z23 [place] [address] [facility] [id number] [address] [place] [address] Jun, Irritable bowel syndrome wit h diarrhea K58.0 [place] [address] [facility] [id number] [address] [place] [address] May, Chronic pain G89.29 [place] [address] [place] [id number] [address] [place] [address] May, Type 2 diabetes mellitus wit h hyperglycemia E11.65 and Neuropathy G62.9 [place] [address] [facility] [id number] [address] [place] [address] May, Chronic pain G89.29 [place] [address] [facility] [id number] [address] [place] [address] Apr, Poison maryam dermatitis L23.7 [place] [address] [facility] [id number] [address] [place] [address] Apr, Chronic pain G89.29 [place] [address] [facility] [id number] [address] [place] [address] March, Type 2 diabetes mellitus wit h hyperglycemia E11.65 [place] [address] [facility] [id number] [address] [place] [address] March, Chronic pain G89.29 [place] [address] [facility] [id number] [address] [place] [address] March, [address] [address] Feb, [facility] [address] [facility] [id number] [address] [place] [address] 09 Feb, 2019 Other chronic pain G89.29 an d Chronic pain G89.29 [facility] [address] [facility] [id number] [address] [place] [address] Jan, Mixed hyperlipidemia E78.2 [facility] [address] [facility] [id number] [address] [place] [address] Jan, Chronic pain G89.29 [facility] [address] [facility] [id number] [address] [place] [address] 08 Jan, 2019 Type 2 diabetes mellitus wit h hyperglycemia E11.65 ; Mixed hyperlipidemia E78.2 ; halfway current use of insulin Z79.4 ; Acquired hypothyroidism E03.9 and Essential (primary) hypertension I10 [facility] [address] [facility] [id number] [address] [place] [address] Dec, Chronic pain G89.29 [facility] [address] [facility] [id number] [address] [place] [address] Nov, Chronic pain G89.29 [facility] [address] [facility] [id number] [address] [place] [address] Nov, [facility] [address] [facility] [id number] [address] [place] [address] Oct, Chronic pain G89.29 [facility] [address] [facility] [id number] [address] [place] [address] Oct, [facility] [address] [facility] [id number] [address] [place] [address] Sep, [facility] [address] [facility] [id number] [address] [place] [address] Sep, Type 2 diabetes mellitus wit h hyperglycemia E11.65 [facility] [address] 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 and Dermatitis L30.9 [place] [address] [address] Aug, Chronic pain G89.29 [place] [address] [address] Jul, Chronic pain G89.29 [place] [address] [address] Jun, Type 2 diabetes mellitus wit h hyperglycemia E11.65 ; Neuropathy G62.9 ; Recurrent major depressive disorder, in partial remission F33.41 ; Chronic pain G89.29 and Hypertriglyceridemia E78.1 [place] [address] [address] Jun, Hypothyroid E03.9 [place] [address] [address] Jun, Major depressive disorder, r ecurrent episode, moderate F33.1 and Anxiety disorder, unspecified type F41.9 [place] [address] [address] Jun, [place] [address] [address] Jun, Type 2 diabetes mellitus wit h hyperglycemia E11.65 ; 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 [id number] [address] [place] [address] May, [facility] [address] [facility] [id number] [address] [place] [address] May, [facility] [address] [facility] [id number] [address] [place] [address] May, Generalized abdominal pain R 10.84 and Candidal dermatitis B37.2 [facility] [address] [facility] [id number] [address] [place] [address] May, [facility] [address] [facility] [id number] [address] [place] [address] May, [facility] [address] [facility] [id number] [address] [place] [address] May, Nodular radiologic density R 93.8 ; Weight loss, unintentional R63.4 and Pulmonary emphysema, unspecified emphysema type J43.9 [place] [address] [place] [id number] [address] [place] [address] May, Chronic pain G89.29 [place] [address] [place] [id number] [address] [place] [address] May, Syncope and collapse R55 ; C hronic fatigue R53.[address] lung screening R91.8 [place] [address] [place] [id number] [address] [place] [address] May, [place] [address] [place] [id number] [address] [place] [address] Apr, Chronic fatigue R53.82 ; Abn ormal chest CT R93.8 ; Elevated erythrocyte sedimentation rate R70.0 ; Hypothyroid E03.9 and Recurrent major depressive disorder, in partial remission F33.41 [place] [address] [facility] [id number] [address] [place] [address] Apr, Hypothyroid E03.9 [place] [address] [facility] [id number] [address] [place] [address] Apr, Depression F32.9 [place] [address] [facility] [id number] [address] [place] [address] Apr, [place] [address] [facility] [id number] [address] [place] [address] March, [place] [address] [facility] [id number] [address] [place] [address] March, Hypothyroid E03.9 [place] [address] [facility] [id number] [address] [place] [address] March, Diabetes mellitus E11.9 and Hypothyroid E03.9 [place] [address] [facility] [id number] [address] [place] [address] March, Diabetes mellitus E11.9 [place] [address] [place] [id number] [address] [place] [address] March, Hypothyroid E03.9 and Elevat ed liver enzymes R74.8 [place] [address] [facility] [id number] [address] [place] [address] March, Type 2 diabetes mellitus wit h [...] major depressive disorder, in partial remission F33.41 [place] [address] [facility] [id number] [address] [place] [address] Feb, Chronic pain G89.29 [place] [address] [place] [id number] [address] [place] [address] Feb, Type 2 diabetes mellitus wit h hyperglycemia E11.65 and Skin lesion of scalp L98.9 [place] [address] [place] [id number] [address] [place] [address] Feb, [place] [address] [facility] [id number] [address] [place] [address] Jan, Type 2 diabetes mellitus wit h [...] and Irritable bowel syndrome with diarrhea K58.0 [place] [address] [facility] [id number] [address] [place] [address] Jan, [place] [address] [place] [id number] [address] [place] [address] Jan, Controlled substance agreeme nt signed Z79.899 [place] [address] [place] [id number] [place] [address] Dec, Type 2 diabetes mellitus wit h [...] treatment Z91.19 and Overweight (BMI 25.0-29.9) E66.3 [place] [address] [place] [id number] [address] [place] [address] Dec, Controlled substance agreeme nt signed Z79.899 [place] [address] [place] [id number] [address] [place] [address] Nov, Type 2 diabetes mellitus wit h hyperglycemia E11.65 and Current non- adherence to medical treatment Z91.19 [place] [address] [place] [id number] [address] [place] [address] Nov, [facility] [address] [id number] [address] [place] [address] Nov, Chronic pain G89.29 [facility] [address] [id number] [address] [place] [address] Nov, [facility] [address] [facility] [id number] [address] [place] [address] Nov, Hypothyroid E03.9 [facility] [address] [id number] [address] [place] [address] Nov, Hypothyroid E03.9 [facility] [address] [id number] [address] [place] [address] Nov, Pulmonary emphysema, unspeci fied emphysema type J43.9 and Irritable bowel syndrome with diarrhea K58.0 [facility] [address] [facility] [id number] [address] [place] [address] Oct, [facility] [address] [facility] [id number] [address] [place] [address] Oct, [facility] [address] [id number] [address] [place] [address] Oct, [facility] [address] [facility] [id number] [address] [place] [address] Oct, [facility] [address] [facility] [id number] [address] [place] [address] Oct, Chronic pain G89.29 [facility] [address] [id number] [address] [place] [address] Oct, Diabetes mellitus E11.9 ; De pression F32.9 ; Mixed hyperlipidemia E78.2 ; Hypotension, unspecified hypotension type I95.9 ; Pulmonary emphysema, unspecified emphysema type J43.9 and Weight loss, unintentional R63.4 [facility] [address] [facility] [id number] [address] [place] [address] Oct, Chronic pain G89.29 [facility] [address] [place] [id number] [address] [place] [address] Sep, Chronic pain G89.29 [facility] [address] [place] [id number] [place] [address] Sep, Hypothyroid E03.9 and Diabet es mellitus E11.9 [facility] [address] [place] [id number] [address] [place] [address] Aug, Type 2 diabetes mellitus wit h hyperglycemia E11.65 ; halfway current use of insulin Z79.4 ; Essential (primary) hypertension I10 ; Hypothyroid E03.9 ; Neuropathy G62.9 ; Chronic pain G89.29 ; Mixed hy perlipidemia E78.2 and Encounter for immunization Z23 [facility] [address] [place] [id number] [address] [place] [address] Aug, Chronic pain G89.29 [place] [address] [address] Aug, Overactive bladder N32.81 ; Diabetes mellitus E11.9 and Chronic pain G89.29 [place] [id number] [place] [id number] [address] [place] [address] Jul, [place] [address] [address] Jun, [place] [address] [address] Jun, [facility] [address] [place] [id number] [address] [place] [address] Jun, Hypothyroid E03.9 [facility] [address] [place] [id number] [address] [place] [address] Jun, Diabetes mellitus E11.9 ; Hy pothyroid E03.9 ; Neuropathy G62.9 ; Chronic pain G89.29 and Neck mass R22.1 [facility] [address] [place] [id number] [address] [place] [address] Apr, [facility] [address] [place] [id number] [address] [place] [address] Apr, Acute cystitis without hemat uria N30.00 [facility] [address] [place] [id number] [address] [place] [address] March, [facility] [address] [place] [id number] [address] [place] [address] March, [facility] [address] [address] March, Near syncope R55 [facility] [address] [address] Feb, [facility] [address] [address] Feb, Chronic pain G89.29 [place] [address] [address] Feb, [facility] [address] [place] [id number] [address] [place] [address] Feb, [facility] [address] [address] Jan, Chronic pain G89.29 [facility] [address] [address] Jan, [facility] [address] [address] Jan, [facility] [address] [place] [id number] [address] [place] [address] 14 Jan, 2017 Diabetes mellitus E11.9 ; Hy pothyroid E03.9 ; GERD (gastroesophageal reflux disease) K21.9 ; Insomnia G47.00 ; Functional diarrhea K59.1 ; Neuropathy G62.9 ; Depression F32.9 ; Chronic pain G89.29 ; Irritable bowel syndrome with diarrhea K58.0 ; Overactive bladder N32.81 ; Mixed hyperlipidemia E78.2 and Bronchitis J40 [facility] [address] [place] [id number] [address] [place] [address] Dec, [facility] [address] [facility] [id number] [address] [place] [address] Dec, [facility] [address] [facility] [id number] [address] [place] [address] Dec, [facility] [address] [facility] [id number] [address] [place] [address] Dec, [facility] [address] [facility] [id number] [address] [place] [address] Dec, Chronic pain G89.29 [facility] [address] [facility] [id number] [address] [place] [address] Dec, [facility] [address] [place] [id number] [address] [place] [address] Dec, [facility] [address] [place] [id number] [address] [place] [address] Dec, Type 2 diabetes mellitus wit h foot ulcer E11.621 [facility] [address] [place] [id number] [address] [place] [address] 17 Dec, 2016 Type 2 diabetes mellitus wit h foot ulcer E11.621 [facility] [id number] [place] [address] 14 Dec, 2016 HTN (hypertension) I10 ; Dep ression F32.9 ; Type 2 diabetes mellitus with foot ulcer E11.621 ; Functional diarrhea K59.1 ; Irritable bowel syndrome with diarrhea K58.0 ; Chronic pain G89.29 ; Insomnia G47.00 ; Overactive bladder N32.81 ; Mixed hyperlipidemia E78.2 ; Gastroesophageal reflux disease with esophagitis K21.0 and Acquired hypothyroidism E03.9 [facility] [address] [place] [id number] [address] [place] [address] Nov, [facility] [address] [place] [address] Oct, [place] [address] [address] Oct, [place] [address] [address] Oct, [place] [address] [address] Sep, Functional diarrhea K59.1 ; HTN (hypertension) I10 ; Diabetes mellitus E11.9 ; Depression F32.9 ; Overactive bladder N32.81 ; Mixed hyperlipidemia E78.2 ; Gastroesophageal reflux disease without esophagitis K21.9 ; Chronic pain G89.29 ; Insomnia G47.00 and Acquired hypothyroidism E03.9 [place] [address] [address] Sep, [place] [address] [address] Aug, Encounter for immunization Z 23 [place] [address] [address] 06 Aug, 2016 [place] [address] [address] Jul, [place] [address] [address] Jun, Type 2 diabetes mellitus wit hout complications E11.9 ; HTN (hypertension) I10 ; Hypothyroid E03.9 ; Neuropathy G62.9 ; Depression F32.9 ; Chronic pain G89.29 ; GERD (gastroesophageal reflux disease) K21.9 ; Insomnia G47.00 ; Overactive bladder N32.81 ; Mixed hyperlipidemia E78.2 ; Diarrhea of infectious origin A09 and Environmental allergies Z91.09 [place] [address] [place] [id number] [address] [place] [address] Apr, [place] [address] [address] March, Hypothyroidism, unspecified E03.9 and Mixed hyperlipidemia E78.2 [place] [id number] [place] [id number] [address] [place] [address] March, Diabetes mellitus E11.9 ; HT N (hypertension) I10 ; Hypothyroid E03.9 ; Depression F32.9 ; Overactive bladder N32.81 ; Other chronic pain G89.29 ; Lumbago with sciatica, unspecified side M54.40 ; Environmental allergies Z91.09 and Gastroesophageal reflux disease, esophagitis presence not specified K21.9 [place] [id number] [place] [id number] [address] [place] [address] March, [place] [address] [id number] Jan, HTN (hypertension) I10 ; Hyp othyroid E03.9 ; Neuropathy G62.9 ; Diabetes mellitus E11.9 ; Chronic pain G89.29 ; GERD (gastroesophageal reflux disease) K21.9 ; Overactive bladder N32.81 and Depression F32.9 [place] [address] [address] [place] [id number] [address] [place] [address] Dec, Ear pain, left H92.02 ; HTN (hypertension) I10 ; Hypothyroid E03.9 ; Neuropathy G62.9 ; Diabetes mellitus E11.9 ; Depression F32.9 ; GERD (gastroesophageal reflux disease) K21.9 ; Insomnia G47.00 and Overactive bladder N32.81 [place] [address] [address] [place] [id number] [address] [place] [address] Nov, Overactive bladder N32.81 an d Chronic pain G89.29 [place] [address] [facility] [place] [id number] [address] [place] [address] Nov, Kidney failure N19 [place] [address] [address] [place] [id number] [address] [place] [id number] Nov, [place] [address] [address] [place] [id number] [address] [place] [address] Nov, [place] [address] [address] Nov, Diabetes mellitus E11.9 ; De pression F32.9 ; Chronic pain G89.29 ; GERD (gastroesophageal reflux disease) K21.9 ; Insomnia G47.00 ; HTN (hypertension) I10 ; Hypothyroid E03.9 ; COPD (chronic obstructive pulmonary disease) J44.9 ; Bladder incontinence R32 and Incontinence R32 [place] [address] [address] Sep, Type 2 diabetes mellitus wit h foot ulcer E11.621 and Chromosomal abnormality, 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 [id number] Sep, [place] [address] [address] Aug, [address] [address] Aug, [place] [address] [address] Aug, HTN (hypertension) I10 ; Enc ounter for immunization Z23 ; Hypothyroid E03.9 ; Neuropathy G62.9 ; Diabetes mellitus E11.9 ; Depression F32.9 ; Chronic pain G89.29 ; GERD (gastroesophageal reflux disease) K21.9 ; Insomnia G47.00 and COPD (chronic obstructive pulmonary disease) J44.9 [place] [address] [address] Jun, [place] [address] [address] [address] [address] Jun, [address] [address] May, Essential hypertension, ivis gn 401.1 ; Unspecified hypothyroidism 244.9 ; Insomnia, unspecified 780.52 ; Shortness of breath 786.05 ; Depression 311 ; COPD (chronic obstructive pulmonary disease) 496 ; GERD (gastroesophageal reflux disease) 530.81 and Diabetes 1.5, 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 [id number] [address] [place] [address] May, [facility] [address] [facility] [id number] [address] [place] [address] May, [facility] [address] [facility] [id number] [address] [place] [address] May, Shortness of breath 786.05 ; Essential hypertension, benign 401.1 ; Diabetes mellitus 250.00 ; Hyperlipidemia 272.4 ; Hypothyroid 244.9 ; Insomnia 780.52 and Cough 786.2 [facility] [address] [facility] [id number] [address] [place] [address] Apr, [facility] [address] [facility] [id number] [address] [place] [address] March, Shortness of breath 786.05 ; Nausea with vomiting 787.01 ; Essential hypertension, benign 401.1 ; Diabetes mellitus 250.00 ; Hyperlipidemia 272.4 and Hypothyroid 244.9 [facility] [address] [place] [id number] [address] [place] [address] Feb, [facility] [address] [facility] [id number] [address] [place] [address] Feb, [facility] [address] [facility] [id number] [address] [place] [address] Jan, [facility] [address] [facility] [id number] [address] [place] [address] Jan, [facility] [address] [facility] [id number] [address] [place] [address] Jan, [facility] [address] [facility] [id number] [address] [place] [address] Jan, [facility] [address] [facility] [id number] [address] [place] [address] Jan, [facility] [address] [id number] [address] [place] [address] Jan, [facility] [address] [id number] [address] [place] [address], [place] [address] Jan, [facility] [address] [id number] [address] [place] [address], [place] [address] Jan, [facility] [address] [id number] [address] [place] [address], [place] [address] Jan, [facility] [address] [id number] [address] [place] [address], [place] [address] Jan, [facility] [address] [id number] [address] [place] [address], [place] [address] Dec, 2014 [facility] [address] [id number] [address] [place] [address], [place] [address] Dec, 2014 [facility] [address] [id number] [address] [place] [address], [place] [address] Dec, 2014 [facility] [address] [id number] [address] [place] [address], [place] [address] Dec, 2014 [facility] [address] [id number] [address] [place] [address], [place] [address] Dec, 2014 [facility] [address] [id number] [address] [place] [address], [place] [address] Dec, 2014 [facility] [address] [id number] [address] [place] [address], [place] [address] Dec, 2014 [facility] [address] [id number] [address] [place] [address] Dec, 2014 [facility] [address] [id number] [address] [place] [address], [place] [address] Dec, 2014 [facility] [address] [id number] [address] [place] [address] Dec, 2014 [facility] [address] [id number] [address] [place] [address] Oct, [facility] [address] [id number] [address] [place] [address], [place] [address] Oct, [facility] [address] [id number] [address] [place] [address], [place] [address] Oct, [facility] [address] [id number] [address] [place] [address], [place] [address] Oct, [facility] [address] [id number] [address] [place] [address], [place] [address] Oct, [facility] [address] [id number] [address] [place] [address], [place] [address] Oct, [facility] [address] [id number] [address] [place] [address], [place] [address] Oct, [facility] [address] [id number] [address] [place] [address], [place] [address] Oct, [facility] [address] [id number] [address] [place] [address], [place] [address] Oct, [facility] [address] [id number] [address] [place] [address], [place] [address] Oct, [facility] [address] [id number] [address] [place] [address], [place] [address] Oct, [facility] [address] [id number] [address] [place] [address], [place] [address] Oct, [facility] [address] [id number] [address] [place] [address], [place] [address] Oct, [facility] [address] [id number] [address] [place] [address], [place] [address] Oct, [facility] [address] [id number] [address] [place] [address], [place] [address] Sep, [facility] [address] [id number] [address] [place] [address], [place] [address] Sep, [facility] [address] [id number] [address] [place] [address] Sep, [facility] [address] [id number] [address] [place] [address], [place] [address] Sep, [facility] [address] [id number] [address] [place] [address] Sep, [facility] [address] [id number] [address] [place] [address], [place] [address] Sep, [facility] [address] [id number] [address] [place] [address], [place] [address] Sep, [facility] [address] [id number] [address] [place] [address], [place] [address] Sep, [facility] [address] [id number] [address] [place] [address], [place] [address] Sep, [facility] [address] [id number] [address] [place] [address], [place] [address] Aug, [facility] [address] [id number] [address] [place] [address], [place] [address] Aug, [facility] [address] [id number] [address] [place] [address] Aug, [facility] [address] [id number] [address] [place] [address], [place] [address] Aug, [facility] [address] [id number] [address] [place] [address] 16 Aug, 2014 [facility] [address] [id number] [address] [place] [address] Aug, [facility] [address] [id number] [address] [place] [address], [place] [address] Aug, [facility] [address] [id number] [address] [place] [address] Aug, [facility] [address] [id number] [address] [place] [address], [place] [address] Aug, [facility] [address] [id number] [facility] [place] [address] 29 Jul, 2013 [facility] [address] [id number] [facility] [place] [address] 29 Jul, 2013 [facility] [address] [id number] [facility] [place] [address] Jul, 2013 [facility] [address] [id number] [facility] [place] [address] Jul, 2013 [facility] [address] [id number] [facility] [place] [address] Jul, 2013 [facility] [address] [id number] [address] [place] [address], [place] [address] Jul, 2013 [facility] [address] [id number] [address] [place] [address], [place] [address] Jul, 2013 [facility] [address] [id number] [address] [place] [address], [place] [address] Jul, 2013 [facility] [address] [id number] [address] [place] [address], [place] [address] Jul, [facility] [address] [id number] [address] [place] [address], [place] [address] Jul, [facility] [address] [id number] [address] [place] [address], [place] [address] Jun, [facility] [address] [id number] [address] [place] [address], [place] [address] Jun, [facility] [address] [id number] [address] [place] [address], [place] [address] Jun, [facility] [address] [id number] [address] [place] [address], [place] [address] Jun, [facility] [address] [id number] [address] [place] [address], [place] [address] Jun, [facility] [address] [id number] [address] [place] [address], [place] [address] Jun, [facility] [address] [id number] [facility] [place] [address] Jun, [facility] [address] [id number] [facility] [place] [address] Jun, [facility] [address] [id number] [facility] [place] [address] Jun, [facility] [address] [id number] [address] [place] [address], [place] [address] Jun, [facility] [address] [id number] [address] [place] [address], [place] [address] Jun, [facility] [address] [id number] [address] [place] [address], [place] [address] Jun, [facility] [address] [id number] [address] [place] [address], [place] [address] May, [facility] [address] [id number] [address] [place] [address], [place] [address] May, [facility] [address] [id number] [address] [place] [address], [place] [address] May, [facility] [address] [id number] [address] [place] [address], [place] [address] May, [facility] [address] [id number] [address] [place] [address], [place] [address] May, [facility] [address] [id number] [address] [place] [address], [place] [address] May, [facility] [address] [id number] [address] [place] [address], [place] [address] March, [facility] [address] [id number] [address] [place] [address], [place] [address] March, [facility] [address] [id number] [address] [place] [address], [place] [address] March, [facility] [address] [id number] [address] [place] [address], [place] [address] March, [facility] [address] [id number] [address] [place] [address], [place] [address] March, [facility] [address] [id number] [address] [place] [address], [place] [address] March, [facility] [address] [id number] [address] [place] [address], [place] [address] Feb, [facility] [address] [id number] [address] [place] [address], [place] [address] Feb, [facility] [address] [id number] [address] [place] [address], [place] [address] Feb, [facility] [address] [id number] [address] [place] [address], [place] [address] Feb, [facility] [address] [id number] [address] [place] [address], [place] [address] Jan, [facility] [address] [id number] [address] [place] [address], [place] [address] Jan, [facility] [address] [id number] [address] [place] [address], [place] [address] Jan, [facility] [address] [id number] [address] [place] [address], [place] [address] Jan, [facility] [address] [id number] [address] [place] [address], [place] [address] Jan, [facility] [address] [id number] [address] [place] [address], [place] [address] Jan, [facility] [address] [id number] [address] [place] [address], [place] [address] Jan, [facility] [address] [id number] [address] [place] [address], [place] [address] Jan, [facility] [address] [id number] [address] [place] [address], [place] [address] Jan, [facility] [address] [id number] [address] [place] [address], [place] [address] Jan, [facility] [address] [id number] [address] [place] [address], [place] [address] Jan, [facility] [address] [id number] [address] [place] [address], [place] [address] Jan, [facility] [address] [id number] [address] [place] [address], [place] [address] Dec, [facility] [address] [id number] [address] [place] [address], [place] [address] Dec, [facility] [address] [id number] [address] [place] [address], [place] [address] Dec, [facility] [address] [id number] [address] [place] [address], [place] [address] Dec, [facility] [address] [id number] [address] [place] [address], [place] [address] Dec, [facility] [address] [id number] [address] [place] [address], [place] [address] Dec, [facility] [address] [id number] [address] [place] [address], [place] [address] Nov, [facility] [address] [id number] [address] [place] [address], [place] [address] Nov, [facility] [address] [id number] [address] [place] [address], [place] [address] Oct, [facility] [address] [id number] [address] [place] [address], [place] [address] Oct, [facility] [address] [id number] [address] [place] [address], [place] [address] Oct, [facility] [address] [id number] [address] [place] [address], [place] [address] Oct, [facility] [address] [id number] [address] [place] [address], [place] [address] Oct, [facility] [address] [id number] [address] [place] [address], [place] [address] Oct, [facility] [address] [id number] [address] [place] [address], [place] [address] Sep, [facility] [address] [id number] [address] [place] [address], [place] [address] Sep, [facility] [address] [id number] [address] [place] [address], [place] [address] Sep, [facility] [address] [id number] [address] [place] [address], [place] [address] Sep, [facility] [address] [id number] [address] [place] [address], [place] [address] Aug, [facility] [address] [id number] [address] [place] [address], [place] [address] Aug, [facility] [address] [id number] [address] [place] [address], [place] [address] Aug, [facility] [address] [id number] [address] [place] [address], [place] [address] Jul, [facility] [address] [id number] [address] [place] [address], [place] [address] 14 Jul, 2013 [facility] [address] [id number] [address] [place] [address], [place] [address] Jul, [facility] [address] [id number] [address] [place] [address], [place] [address] Jun, [facility] [address] [id number] [address] [place] [address], [place] [address] Jun, [facility] [address] [id number] [address] [place] [address], [place] [address] Jun, [facility] [address] [id number] [address] [place] [address], [place] [address] Apr, [facility] [address] [id number] [address] [place] [address], [place] [address] Apr, [facility] [address] [id number] [address] [place] [address], [place] [address] March, [facility] [address] [id number] [address] [place] [address], [place] [address] March, [facility] [address] [id number] [address] [place] [address], [place] [address] March, [facility] [address] [id number] [address] [place] [address], [place] [address] March, [facility] [address] [id number] [address] [place] [address], [place] [address] Feb, [facility] [address] [id number] [address] [place] [address], [place] [address] Jan, [facility] [address] [id number] [address] [place] [address], [place] [address] Dec, [facility] [address] [id number] [address] [place] [address], [place] [address] Dec, [facility] [address] [id number] [address] [place] [address], [place] [address] Dec, [facility] [address] [id number] [address] [place] [address], [place] [address] Nov, [facility] [address] [id number] [address] [place] [address], [place] [address] Oct, [facility] [address] [id number] [address] [place] [address], [place] [address] Oct, [facility] [address] [id number] [address] [place] [address], [place] [address] Sep, [facility] [address] [id number] [address] [place] [address], [place] [address] Sep, [facility] [address] [id number] [address] [place] [address], [place] [address] Sep, [facility] [address] [id number] [address] [place] [address], [place] [address] Sep, [facility] [address] [id number] [address] [place] [address], [place] [address] Sep, [facility] [address] [id number] [address] [place] [address], [place] [address] Sep, [facility] [address] [id number] [address] [place] [address], [place] [address] Sep, [facility] [address] [id number] [address] [place] [address], [place] [address] Aug, [facility] [address] [id number] [address] [place] [address], [place] [address] Aug, [facility] [address] [id number] [address] [place] [address], [place] [address] Aug, [facility] [address] [id number] [address] [place] [address], [place] [address] Aug, [facility] [address] [id number] [address] [place] [address], [place] [address] Aug, [facility] [address] [id number] [address] [place] [address] Aug, [facility] [address] [id number] [address] [place] [address] Aug, [facility] [address] [id number] [address] [place] [address] Aug, [facility] [address] [id number] [address] [place] [address], [place] [address] Jul, [facility] [address] [id number] [address] [place] [address], [place] [address] Jul, [facility] [address] [id number] [address] [place] [address], [place] [address] Jun, [facility] [address] [id number] [address] [place] [address], [place] [address] May, [facility] [address] [id number] [address] [place] [address], [place] [address] Apr, [facility] [address] [id number] [address] [place] [address], [place] [address] Apr, [facility] [address] [id number] [address] [place] [address], [place] [address] Apr, [facility] [address] [id number] [address] [place] [address], [place] [address] March, [facility] [address] [id number] [address] [place] [address], [place] [address] March, [facility] [address] [id number] [address] [place] [address], [place] [address] March, [facility] [address] [id number] [address] [place] [address], [place] [address] March, [facility] [address] [id number] [address] [place] [address], [place] [address] March, [facility] [address] [id number] [address] [place] [address], [place] [address] March, [facility] [address] [id number] [address] [place] [address], [place] [address] March, [facility] [address] [id number] [address] [place] [address], [place] [address] Jan, [facility] [address] [id number] [address] [place] [address], [place] [address] Jan, [facility] [address] [id number] [address] [place] [address], [place] [address] Jan, [facility] [address] [id number] [address] [place] [address], [place] [address] Jan, [facility] [address] [id number] [address] [place] [address], [place] [address] Jan, [facility] [address] [id number] [address] [place] [address], [place] [address] 08 Dec, 2011 [facility] [address] [id number] [address] [place] [address], [place] [address] Dec, [facility] [address] [id number] [address] [place] [address], [place] [address] Nov, [facility] [address] [id number] [address] [place] [address], [place] [address] Nov, [facility] [address] [id number] [address] [place] [address], [place] [address] Nov, [facility] [address] [id number] [address] [place] [address], [place] [address] Nov, [facility] [address] [id number] [address] [place] [address], [place] [id number] Oct, [facility] [address] [id number] [address] [place] [address], [place] [address] Oct, [facility] [address] [id number] [address] [place] [address], [place] [address] 14 Sep, 2011 [facility] [address] [id number] [address] [place] [address], [place] [address] Sep, [facility] [address] [id number] [address] [place] [address], [place] [address] Sep, [facility] [address] [id number] [address] [place] [address], [place] [address] May, [facility] [address] [id number] [address] [place] [address], [place] [address] Nov, [facility] [address] [id number] [address] [place] [address], [place] [address] 29 Oct, 2010 [facility] [address] [id number] [address] [place] [address], [place] [address] 14 Oct, 2010 [facility] [address] [id number] [address] [place] [id number] 08 Oct, 2010 [facility] [address] [id number] [address] [place] [id number] 15 Sep, 2010 [facility] [address] [id number] [address] [place] [id number] Sep, [facility] [address] [id number] [address] [place] [id number] Aug, [facility] [address] [id number] [address] [place] [id number] March, [facility] [address] [id number] [address] [place] [id number] Oct, [facility] [address] [id number] [address] [place] [id number] Oct, [facility] [address] [id number] [address] [place] [id number] Oct, [facility] [address] [id number] [address] [place] [id number] Oct, [facility] [address] [id number] [address] [place] [phone] Sep, [facility] [address] [id number] [address] [place] [id number] Sep, [facility] [address] [id number] [address] [place] [id number] Sep, [facility] [address] [id number] [address] [place] [id number] Aug, [facility] [address] [id number] [address] [place] [id number] 24 Aug, 2009 [facility] [address] [id number] [address] [place] [id number] Aug, [facility] [address] [id number] [address] [place] [id number] 10 Jan, 2009 IMMUNIZATIONS No Known Immunizations [...]
[2020-06-13 16:45] LABS: ALBUMIN 3.8 GM/DL (3.2-4.5); POTASSIUM 4.5 MMOL/L (3.6-5.0)
--- OUTSIDE RECORDS SUMMARY | 2020-06-13 16:45 | XMS REPORT ---
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 Name Role Phone Migration, Doctor Unavailable Unavailable PROBLEMS Type Condition ICD9-CM Code MEB23-UP Code Onset Dates Condition S tatus SNOMED Code Problem Neuropathy G62.9 Active 077665972 Problem Chronic pain G89.29 Active 6102346 1 Problem Overactive bladder N32.81 Active 2 02521121 Problem Hypothyroid E03.9 Active 06708776 Problem Irritable bowel syndrome with diarrhea K58.0 Active 323583192 Problem FDC current use of insulin Z79.4 Active 908772103 Problem Type 2 diabetes mellitus with hyperglycemia E11.65 Active 36722800 Problem Chronic obstructive pulmonary disease, unspecified COPD ty pe J44.9 Active 06553731 Problem Gastroesophageal reflux disease with esophagitis K 21.0 Active 114325956 Problem Major depressive disorder, recurrent, in full remission F33.42 Active 36486213 Problem Mixed hyperlipidemia E78.2 Active 388622778 Problem Essential (primary) hypertension I10 Active 54171637 Problem Anxiety disorder, unspecified type F41.9 Active 466295538 Problem Gastroparesis K31.84 Active 615041 006 Problem 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 Active [id number] ALLERGIES No Information ENCOUNTERS Encounter Location Date Diagnosis [facility] [address] [facility] [id number] [address] [place] [id number] Jun, Other chronic pain G89.29 [facility] [address] [facility] [id number] [address] [place] [address] Jun, [facility] [address] [id number] [address] [place] [address] Jun, Chronic pain G89.29 [facility] [address] [id number] [address] [place] [address] Jun, Neuropathy G62.9 [facility] [address] [place] [id number] [address] [place] [address] Jun, Encounter for Medicare annua l wellness exam Z00.00 ; Type 2 diabetes mellitus with hyperglycemia E11.65 ; Mixed hyperlipidemia E78.2 ; Hypothyroid E03.9 ; Gastroesophageal reflux disease with esophagitis K21.0 ; Essential (primary) hypertension I10 ; Major depressive disorder, recurrent, in full remission F33.42 ; Chronic obstructive pulmonary disease, unspecified COPD type J44.9 ; Neuropathy G62.9 and Encounter for immunization Z23 [place] [address] [facility] [id number] [address] [place] [address] Jun, Irritable bowel syndrome wit h diarrhea K58.0 [place] [address] [id number] [address] [place] [address] May, Chronic pain G89.29 [place] [address] [place] [id number] [address] [place] [address] May, Type 2 diabetes mellitus wit h hyperglycemia E11.65 and Neuropathy G62.9 [place] [address] [id number] [address] [place] [address] May, Chronic pain G89.29 [place] [address] [id number] [address] [place] [address] Apr, Poison maryam dermatitis L23.7 [place] [address] [id number] [address] [place] [address] Apr, Chronic pain G89.29 [place] [address] [id number] [address] [place] [address] March, Type 2 diabetes mellitus wit h hyperglycemia E11.65 [place] [address] [id number] [address] [place] [address] March, Chronic pain G89.29 [place] [address] [id number] [address] [place] [address] March, [address] [address] Feb, [facility] [address] [facility] [id number] [address] [place] [address] 09 Feb, 2019 Other chronic pain G89.29 an d Chronic pain G89.29 [facility] [address] [facility] [id number] [address] [place] [address] Jan, Mixed hyperlipidemia E78.2 [facility] [address] [facility] [id number] [address] [place] [address] Jan, Chronic pain G89.29 [facility] [address] [id number] [address] [place] [address] 08 Jan, 2019 Type 2 diabetes mellitus wit h hyperglycemia E11.65 ; Mixed hyperlipidemia E78.2 ; FDC current use of insulin Z79.4 ; Acquired hypothyroidism E03.9 and Essential (primary) hypertension I10 [facility] [address] [id number] [address] [place] [address] Dec, Chronic pain G89.29 [facility] [address] [facility] [id number] [address] [place] [address] Nov, Chronic pain G89.29 [facility] [address] [id number] [address] [place] [address] Nov, [facility] [address] [id number] [address] [place] [address] Oct, Chronic pain G89.29 [facility] [address] [id number] [address] [place] [address] Oct, [facility] [address] [id number] [address] [place] [address] Sep, [facility] [address] [id number] [address] [place] [address] Sep, Type 2 diabetes mellitus wit h hyperglycemia E11.65 [facility] [address] [id number] [address] [place] [address] 16 Sep, 2018 Chronic pain G89.29 [facility] [address] [address] Sep, [place] [address] [address] Sep, Type 2 diabetes mellitus wit h hyperglycemia E11.65 ; Irritable bowel syndrome with diarrhea K58.0 ; Gastroparesis K31.84 ; 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 and Dermatitis L30.9 [place] [address] [address] Aug, Chronic pain G89.29 [place] [address] [address] Jul, Chronic pain G89.29 [place] [address] [address] Jun, Type 2 diabetes mellitus wit h hyperglycemia E11.65 ; Neuropathy G62.9 ; Recurrent major depressive disorder, in partial remission F33.41 ; Chronic pain G89.29 and Hypertriglyceridemia E78.1 [place] [address] [address] Jun, Hypothyroid E03.9 [place] [address] [address] Jun, Major depressive disorder, r ecurrent episode, moderate F33.1 and Anxiety disorder, unspecified type F41.9 [place] [address] [address] Jun, [place] [address] [address] Jun, Type 2 diabetes mellitus wit h hyperglycemia E11.65 ; 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 ; Recurrent major depressive disorder, in partial remission F33.41 ; Hypothyroid E03.9 ; Candidal dermatitis B37.2 and Weakness generalized R53.1 [place] [address] [address] May, [facility] [address] [id number] [address] [place] [address] May, [facility] [address] [id number] [address] [place] [address] May, [facility] [address] [id number] [address] [place] [address] May, Generalized abdominal pain R 10.84 and Candidal dermatitis B37.2 [facility] [address] [id number] [address] [place] [address] May, [facility] [address] [id number] [address] [place] [id number] May, [facility] [address] [id number] [address] [place] [address] May, Nodular radiologic density R 93.8 ; Weight loss, unintentional R63.4 and Pulmonary emphysema, unspecified emphysema type J43.9 [place] [address] [place] [id number] [address] [place] [address] May, Chronic pain G89.29 [place] [address] [place] [id number] [address] [place] [address] May, Syncope and collapse R55 ; C hronic fatigue R53.[address] lung screening R91.8 [place] [address] [place] [id number] [address] [place] [address] May, [place] [address] [place] [id number] [address] [place] [address] Apr, Chronic fatigue R53.82 ; Abn ormal chest CT R93.8 ; Elevated erythrocyte sedimentation rate R70.0 ; Hypothyroid E03.9 and Recurrent major depressive disorder, in partial remission F33.41 [place] [address] [id number] [address] [place] [address] Apr, Hypothyroid E03.9 [place] [address] [id number] [address] [place] [address] Apr, Depression F32.9 [place] [address] [id number] [address] [place] [address] Apr, [place] [address] [id number] [address] [place] [address] March, [place] [address] [id number] [address] [place] [address] March, Hypothyroid E03.9 [place] [address] [id number] [address] [place] [address] March, Diabetes mellitus E11.9 and Hypothyroid E03.9 [place] [address] [id number] [address] [place] [address] March, Diabetes mellitus E11.9 [place] [address] [place] [id number] [address] [place] [address] March, Hypothyroid E03.9 and Elevat ed liver enzymes R74.8 [place] [address] [facility] [id number] [address] [place] [address] March, Type 2 diabetes mellitus wit h [...] major depressive disorder, in partial remission F33.41 [place] [address] [id number] [address] [place] [address] Feb, Chronic pain G89.29 [place] [address] [place] [id number] [address] [place] [address] Feb, Type 2 diabetes mellitus wit h hyperglycemia E11.65 and Skin lesion of scalp L98.9 [place] [address] [place] [id number] [address] [place] [address] Feb, [place] [address] [id number] [address] [place] [address] Jan, Type 2 diabetes mellitus wit h [...] and Irritable bowel syndrome with diarrhea K58.0 [place] [address] [id number] [address] [place] [address] Jan, [place] [address] [place] [id number] [address] [place] [address] Jan, Controlled substance agreeme nt signed Z79.899 [place] [address] [place] [id number] [address] [place] [address] Dec, Type 2 diabetes mellitus wit h [...] treatment Z91.19 and Overweight (BMI 25.0-29.9) E66.3 [place] [address] [place] [id number] [address] [place] [address] Dec, Controlled substance agreeme nt signed Z79.899 [place] [address] [place] [id number] [address] [place] [address] Nov, Type 2 diabetes mellitus wit h hyperglycemia E11.65 and Current non- adherence to medical treatment Z91.19 [place] [address] [place] [id number] [address] [place] [address] Nov, [facility] [address] [id number] [address] [place] [address] Nov, Chronic pain G89.29 [facility] [address] [id number] [address] [place] [address] Nov, [facility] [address] [facility] [id number] [address] [place] [address] Nov, Hypothyroid E03.9 [facility] [address] [id number] [address] [place] [address] Nov, Hypothyroid E03.9 [facility] [address] [id number] [address] [place] [address] Nov, Pulmonary emphysema, unspeci fied emphysema type J43.9 and Irritable bowel syndrome with diarrhea K58.0 [facility] [address] [facility] [id number] [address] [place] [address] Oct, [facility] [address] [id number] [address] [place] [address] Oct, [facility] [address] [id number] [address] [place] [address] Oct, [facility] [address] [id number] [address] [place] [address] Oct, [facility] [address] [id number] [address] [place] [address] Oct, Chronic pain G89.29 [facility] [address] [id number] [address] [place] [address] Oct, Diabetes mellitus E11.9 ; De pression F32.9 ; Mixed hyperlipidemia E78.2 ; Hypotension, unspecified hypotension type I95.9 ; Pulmonary emphysema, unspecified emphysema type J43.9 and Weight loss, unintentional R63.4 [facility] [address] [id number] [address] [place] [address] Oct, Chronic pain G89.29 [facility] [address] [place] [id number] [address] [place] [address] Sep, Chronic pain G89.29 [facility] [address] [place] [id number] [place] [address] Sep, Hypothyroid E03.9 and Diabet es mellitus E11.9 [facility] [address] [place] [id number] [address] [place] [address] Aug, Type 2 diabetes mellitus wit h hyperglycemia E11.65 ; FDC current use of insulin Z79.4 ; Essential (primary) hypertension I10 ; Hypothyroid E03.9 ; Neuropathy G62.9 ; Chronic pain G89.29 ; Mixed hy perlipidemia E78.2 and Encounter for immunization Z23 [facility] [address] [place] [id number] [address] [place] [address] Aug, Chronic pain G89.29 [place] [address] [address] Aug, Overactive bladder N32.81 ; Diabetes mellitus E11.9 and Chronic pain G89.29 [place] [address] [place] [id number] [address] [place] [address] Jul, [place] [address] [address] Jun, [place] [address] [address] Jun, [facility] [address] [place] [id number] [address] [place] [address] Jun, Hypothyroid E03.9 [facility] [address] [place] [id number] [address] [place] [address] Jun, Diabetes mellitus E11.9 ; Hy pothyroid E03.9 ; Neuropathy G62.9 ; Chronic pain G89.29 and Neck mass R22.1 [facility] [address] [place] [id number] [address] [place] [address] Apr, [facility] [address] [place] [id number] [address] [place] [address] Apr, Acute cystitis without hemat uria N30.00 [facility] [address] [place] [id number] [address] [place] [address] March, [facility] [address] [place] [id number] [address] [place] [address] March, [facility] [address] [address] March, Near syncope R55 [facility] [address] [address] Feb, [facility] [address] [address] Feb, Chronic pain G89.29 [place] [address] [address] Feb, [facility] [address] [place] [id number] [address] [place] [address] Feb, [facility] [address] [address] Jan, Chronic pain G89.29 [facility] [address] [address] Jan, [facility] [address] [address] Jan, [facility] [address] [place] [id number] [address] [place] [address] 14 Jan, 2017 Diabetes mellitus E11.9 ; Hy pothyroid E03.9 ; GERD (gastroesophageal reflux disease) K21.9 ; Insomnia G47.00 ; Functional diarrhea K59.1 ; Neuropathy G62.9 ; Depression F32.9 ; Chronic pain G89.29 ; Irritable bowel syndrome with diarrhea K58.0 ; Overactive bladder N32.81 ; Mixed hyperlipidemia E78.2 and Bronchitis J40 [facility] [address] [place] [id number] [address] [place] [address] Dec, [facility] [address] [id number] [address] [place] [address] Dec, [facility] [address] [id number] [address] [place] [address] Dec, [facility] [address] [id number] [address] [place] [address] Dec, [facility] [address] [id number] [address] [place] [address] Dec, Chronic pain G89.29 [facility] [address] [id number] [address] [place] [address] Dec, [facility] [address] [place] [id number] [address] [place] [address] Dec, [facility] [address] [place] [id number] [address] [place] [address] Dec, Type 2 diabetes mellitus wit h foot ulcer E11.621 [facility] [address] [place] [id number] [address] [place] [address] 17 Dec, 2016 Type 2 diabetes mellitus wit h foot ulcer E11.621 [facility] [id number] [place] [address] 14 Dec, 2016 HTN (hypertension) I10 ; Dep ression F32.9 ; Type 2 diabetes mellitus with foot ulcer E11.621 ; Functional diarrhea K59.1 ; Irritable bowel syndrome with diarrhea K58.0 ; Chronic pain G89.29 ; Insomnia G47.00 ; Overactive bladder N32.81 ; Mixed hyperlipidemia E78.2 ; Gastroesophageal reflux disease with esophagitis K21.0 and Acquired hypothyroidism E03.9 [facility] [address] [place] [id number] [address] [place] [address] Nov, [facility] [id number] [place] [address] Oct, [place] [address] [address] Oct, [place] [address] [address] Oct, [place] [address] [address] Sep, Functional diarrhea K59.1 ; HTN (hypertension) I10 ; Diabetes mellitus E11.9 ; Depression F32.9 ; Overactive bladder N32.81 ; Mixed hyperlipidemia E78.2 ; Gastroesophageal reflux disease without esophagitis K21.9 ; Chronic pain G89.29 ; Insomnia G47.00 and Acquired hypothyroidism E03.9 [place] [address] [address] Sep, [place] [address] [address] Aug, Encounter for immunization Z 23 [place] [address] [address] 06 Aug, 2016 [place] [address] [address] Jul, [place] [address] [address] Jun, Type 2 diabetes mellitus wit hout complications E11.9 ; HTN (hypertension) I10 ; Hypothyroid E03.9 ; Neuropathy G62.9 ; Depression F32.9 ; Chronic pain G89.29 ; GERD (gastroesophageal reflux disease) K21.9 ; Insomnia G47.00 ; Overactive bladder N32.81 ; Mixed hyperlipidemia E78.2 ; Diarrhea of infectious origin A09 and Environmental allergies Z91.09 [place] [address] [place] [id number] [place] [address] Apr, [place] [address] [address] March, Hypothyroidism, unspecified E03.9 and Mixed hyperlipidemia E78.2 [place] [address] [place] [id number] [address] [place] [address] March, Diabetes mellitus E11.9 ; HT N (hypertension) I10 ; Hypothyroid E03.9 ; Depression F32.9 ; Overactive bladder N32.81 ; Other chronic pain G89.29 ; Lumbago with sciatica, unspecified side M54.40 ; Environmental allergies Z91.09 and Gastroesophageal reflux disease, esophagitis presence not specified K21.9 [id number] [id number] [address] [place] [id number] March, [place] [address] [id number] Jan, HTN (hypertension) I10 ; Hyp othyroid E03.9 ; Neuropathy G62.9 ; Diabetes mellitus E11.9 ; Chronic pain G89.29 ; GERD (gastroesophageal reflux disease) K21.9 ; Overactive bladder N32.81 and Depression F32.9 [place] [address] [address] [place] [id number] [address] [place] [id number] Dec, Ear pain, left H92.02 ; HTN (hypertension) I10 ; Hypothyroid E03.9 ; Neuropathy G62.9 ; Diabetes mellitus E11.9 ; Depression F32.9 ; GERD (gastroesophageal reflux disease) K21.9 ; Insomnia G47.00 and Overactive bladder N32.81 [place] [address] [address] [place] [id number] [address] [place] [phone] Nov, Overactive bladder N32.81 an d Chronic pain G89.29 [place] [address] [facility] [id number] [address] [place] [id number] Nov, Kidney failure N19 [place] [address] [address] [place] [id number] [address] [place] [phone] Nov, [place] [address] [address] [place] [id number] [address] [place] [id number] Nov, [place] [address] [id number] Nov, Diabetes mellitus E11.9 ; De pression F32.9 ; Chronic pain G89.29 ; GERD (gastroesophageal reflux disease) K21.9 ; Insomnia G47.00 ; HTN (hypertension) I10 ; Hypothyroid E03.9 ; COPD (chronic obstructive pulmonary disease) J44.9 ; Bladder incontinence R32 and Incontinence R32 [place] [address] [id number] Sep, Type 2 diabetes mellitus wit h foot ulcer E11.621 and Chromosomal abnormality, 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 [address] Sep, [place] [address] [id number] Aug, [address] [address] Aug, [place] [address] [id number] Aug, HTN (hypertension) I10 ; Enc ounter for immunization Z23 ; Hypothyroid E03.9 ; Neuropathy G62.9 ; Diabetes mellitus E11.9 ; Depression F32.9 ; Chronic pain G89.29 ; GERD (gastroesophageal reflux disease) K21.9 ; Insomnia G47.00 and COPD (chronic obstructive pulmonary disease) J44.9 [place] [address] [id number] Jun, [place] [address] [id number] Jun, [address] [id number] May, Essential hypertension, iivs gn 401.1 ; Unspecified hypothyroidism 244.9 ; Insomnia, unspecified 780.52 ; Shortness of breath 786.05 ; Depression 311 ; COPD (chronic obstructive pulmonary disease) 496 ; GERD (gastroesophageal reflux disease) 530.81 and Diabetes 1.5, 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 [facility] [address] [facility] [id number] [address] [place] [address] May, [facility] [address] [id number] [address] [place] [address] May, [facility] [address] [id number] [address] [place] [address] May, Shortness of breath 786.05 ; Essential hypertension, benign 401.1 ; Diabetes mellitus 250.00 ; Hyperlipidemia 272.4 ; Hypothyroid 244.9 ; Insomnia 780.52 and Cough 786.2 [facility] [address] [id number] [address] [place] [address] Apr, [facility] [address] [id number] [address] [place] [address] March, Shortness of breath 786.05 ; Nausea with vomiting 787.01 ; Essential hypertension, benign 401.1 ; Diabetes mellitus 250.00 ; Hyperlipidemia 272.4 and Hypothyroid 244.9 [facility] [address] [place] [id number] [address] [place] [address] Feb, [facility] [address] [id number] [address] [place] [address] Feb, [facility] [address] [id number] [address] [place] [address] Jan, [facility] [address] [id number] [address] [place] [address] Jan, [facility] [address] [id number] [address] [place] [address] Jan, [facility] [address] [id number] [address] [place] [address] Jan, [facility] [address] [id number] [address] [place] [address] Jan, [facility] [address] [id number] [address] [place] [address] Jan, [facility] [address] [id number] [address] [place] [address], [place] [address] Jan, [facility] [address] [id number] [address] [place] [address], [place] [address] Jan, [facility] [address] [id number] [address] [place] [address], [place] [address] Jan, [facility] [address] [id number] [address] [place] [address], [place] [address] Jan, [facility] [address] [id number] [address] [place] [address], [place] [address] Dec, 2014 [facility] [address] [id number] [address] [place] [address], [place] [address] Dec, 2014 [facility] [address] [id number] [address] [place] [address], [place] [address] Dec, 2014 [facility] [address] [id number] [address] [place] [address], [place] [address] Dec, 2014 [facility] [address] [id number] [address] [place] [address], [place] [address] Dec, 2014 [facility] [address] [id number] [address] [place] [address], [place] [address] Dec, 2014 [facility] [address] [id number] [address] [place] [address], [place] [address] Dec, 2014 [facility] [address] [id number] [address] [place] [address] Dec, 2014 [facility] [address] [id number] [address] [place] [address], [place] [address] Dec, 2014 [facility] [address] [id number] [address] [place] [address] Dec, 2014 [facility] [address] [id number] [address] [place] [address] Oct, [facility] [address] [id number] [address] [place] [address], [place] [address] Oct, [facility] [address] [id number] [address] [place] [address], [place] [address] Oct, [facility] [address] [id number] [address] [place] [address], [place] [address] Oct, [facility] [address] [id number] [address] [place] [address], [place] [address] Oct, [facility] [address] [id number] [address] [place] [address], [place] [address] Oct, [facility] [address] [id number] [address] [place] [address], [place] [address] Oct, [facility] [address] [id number] [address] [place] [address], [place] [address] Oct, [facility] [address] [id number] [address] [place] [address], [place] [address] Oct, [facility] [address] [id number] [address] [place] [address], [place] [address] Oct, [facility] [address] [id number] [address] [place] [address], [place] [address] Oct, [facility] [address] [id number] [address] [place] [address], [place] [address] Oct, [facility] [address] [id number] [address] [place] [address], [place] [address] Oct, [facility] [address] [id number] [address] [place] [address], [place] [address] Oct, [facility] [address] [id number] [address] [place] [address], [place] [address] Sep, [facility] [address] [id number] [address] [place] [address], [place] [address] Sep, [facility] [address] [id number] [address] [place] [address] Sep, [facility] [address] [id number] [address] [place] [address], [place] [address] Sep, [facility] [address] [id number] [address] [place] [address] Sep, [facility] [address] [id number] [address] [place] [address], [place] [address] Sep, [facility] [address] [id number] [address] [place] [address], [place] [address] Sep, [facility] [address] [id number] [address] [place] [address], [place] [address] Sep, [facility] [address] [id number] [address] [place] [address], [place] [address] Sep, [facility] [address] [id number] [address] [place] [address], [place] [address] Aug, [facility] [address] [id number] [address] [place] [address], [place] [address] Aug, [facility] [address] [id number] [address] [place] [address] Aug, [facility] [address] [id number] [address] [place] [address], [place] [address] Aug, [facility] [address] [id number] [address] [place] [address] 16 Aug, 2014 [facility] [address] [id number] [address] [place] [address] Aug, [facility] [address] [id number] [address] [place] [address], [place] [address] Aug, [facility] [address] [id number] [address] [place] [address] Aug, [facility] [address] [id number] [address] [place] [address], [place] [address] Aug, [facility] [address] [id number] [facility] [place] [address] 29 Jul, 2013 [facility] [address] [id number] [facility] [place] [address] 29 Jul, 2013 [facility] [address] [id number] [facility] [place] [address] Jul, 2013 [facility] [address] [id number] [facility] [place] [address] Jul, 2013 [facility] [address] [id number] [facility] [place] [address] Jul, 2013 [facility] [address] [id number] [address] [place] [address], [place] [address] Jul, 2013 [facility] [address] [id number] [address] [place] [address], [place] [address] Jul, 2013 [facility] [address] [id number] [address] [place] [address], [place] [address] Jul, 2013 [facility] [address] [id number] [address] [place] [address], [place] [address] Jul, [facility] [address] [id number] [address] [place] [address], [place] [address] Jul, [facility] [address] [id number] [address] [place] [address], [place] [address] Jun, [facility] [address] [id number] [address] [place] [address], [place] [address] Jun, [facility] [address] [id number] [address] [place] [address], [place] [address] Jun, [facility] [address] [id number] [address] [place] [address], [place] [address] Jun, [facility] [address] [id number] [address] [place] [address], [place] [address] Jun, [facility] [address] [id number] [address] [place] [address], [place] [address] Jun, [facility] [address] [id number] [facility] [place] [address] Jun, [facility] [address] [id number] [facility] [place] [address] Jun, [facility] [address] [id number] [facility] [place] [address] Jun, [facility] [address] [id number] [address] [place] [address], [place] [address] Jun, [facility] [address] [id number] [address] [place] [address], [place] [address] Jun, [facility] [address] [id number] [address] [place] [address], [place] [address] Jun, [facility] [address] [id number] [address] [place] [address], [place] [address] May, [facility] [address] [id number] [address] [place] [address], [place] [address] May, [facility] [address] [id number] [address] [place] [address], [place] [address] May, [facility] [address] [id number] [address] [place] [address], [place] [address] May, [facility] [address] [id number] [address] [place] [address], [place] [address] May, [facility] [address] [id number] [address] [place] [address], [place] [address] May, [facility] [address] [id number] [address] [place] [address], [place] [address] March, [facility] [address] [id number] [address] [place] [address], [place] [address] March, [facility] [address] [id number] [address] [place] [address], [place] [address] March, [facility] [address] [id number] [address] [place] [address], [place] [address] March, [facility] [address] [id number] [address] [place] [address], [place] [address] March, [facility] [address] [id number] [address] [place] [address], [place] [address] March, [facility] [address] [id number] [address] [place] [address], [place] [address] Feb, [facility] [address] [id number] [address] [place] [address], [place] [address] Feb, [facility] [address] [id number] [address] [place] [address], [place] [address] Feb, [facility] [address] [id number] [address] [place] [address], [place] [address] Feb, [facility] [address] [id number] [address] [place] [address], [place] [address] Jan, [facility] [address] [id number] [address] [place] [address], [place] [address] Jan, [facility] [address] [id number] [address] [place] [address], [place] [address] Jan, [facility] [address] [id number] [address] [place] [address], [place] [address] Jan, [facility] [address] [id number] [address] [place] [address], [place] [address] Jan, [facility] [address] [id number] [address] [place] [address], [place] [address] Jan, [facility] [address] [id number] [address] [place] [address], [place] [address] Jan, [facility] [address] [id number] [address] [place] [address], [place] [address] Jan, [facility] [address] [id number] [address] [place] [address], [place] [address] Jan, [facility] [address] [id number] [address] [place] [address], [place] [address] Jan, [facility] [address] [id number] [address] [place] [address], [place] [address] Jan, [facility] [address] [id number] [address] [place] [address], [place] [address] Jan, [facility] [address] [id number] [address] [place] [address], [place] [address] Dec, [facility] [address] [id number] [address] [place] [address], [place] [address] Dec, [facility] [address] [id number] [address] [place] [address], [place] [address] Dec, [facility] [address] [id number] [address] [place] [address], [place] [address] Dec, [facility] [address] [id number] [address] [place] [address], [place] [address] Dec, [facility] [address] [id number] [address] [place] [address], [place] [address] Dec, [facility] [address] [id number] [address] [place] [address], [place] [address] Nov, [facility] [address] [id number] [address] [place] [address], [place] [address] Nov, [facility] [address] [id number] [address] [place] [address], [place] [address] Oct, [facility] [address] [id number] [address] [place] [address], [place] [address] Oct, [facility] [address] [id number] [address] [place] [address], [place] [address] Oct, [facility] [address] [id number] [address] [place] [address], [place] [address] Oct, [facility] [address] [id number] [address] [place] [address], [place] [address] Oct, [facility] [address] [id number] [address] [place] [address], [place] [address] Oct, [facility] [address] [id number] [address] [place] [address], [place] [address] Sep, [facility] [address] [id number] [address] [place] [address], [place] [address] Sep, [facility] [address] [id number] [address] [place] [address], [place] [address] Sep, [facility] [address] [id number] [address] [place] [address], [place] [address] Sep, [facility] [address] [id number] [address] [place] [address], [place] [address] Aug, [facility] [address] [id number] [address] [place] [address], [place] [address] Aug, [facility] [address] [id number] [address] [place] [address], [place] [address] Aug, [facility] [address] [id number] [address] [place] [address], [place] [address] Jul, [facility] [address] [id number] [address] [place] [address], [place] [address] 14 Jul, 2013 [facility] [address] [id number] [address] [place] [address], [place] [address] Jul, [facility] [address] [id number] [address] [place] [address], [place] [address] Jun, [facility] [address] [id number] [address] [place] [address], [place] [address] Jun, [facility] [address] [id number] [address] [place] [address], [place] [address] Jun, [facility] [address] [id number] [address] [place] [address], [place] [address] Apr, [facility] [address] [id number] [address] [place] [address], [place] [address] Apr, [facility] [address] [id number] [address] [place] [address], [place] [address] March, [facility] [address] [id number] [address] [place] [address], [place] [address] March, [facility] [address] [id number] [address] [place] [address], [place] [address] March, [facility] [address] [id number] [address] [place] [address], [place] [address] March, [facility] [address] [id number] [address] [place] [address], [place] [address] Feb, [facility] [address] [id number] [address] [place] [address], [place] [address] Jan, [facility] [address] [id number] [address] [place] [address], [place] [address] Dec, [facility] [address] [id number] [address] [place] [address], [place] [address] Dec, [facility] [address] [id number] [address] [place] [address], [place] [address] Dec, [facility] [address] [id number] [address] [place] [address], [place] [address] Nov, [facility] [address] [id number] [address] [place] [address], [place] [address] Oct, [facility] [address] [id number] [address] [place] [address], [place] [address] Oct, [facility] [address] [id number] [address] [place] [address], [place] [address] Sep, [facility] [address] [id number] [address] [place] [address], [place] [address] Sep, [facility] [address] [id number] [address] [place] [address], [place] [address] Sep, [facility] [address] [id number] [address] [place] [address], [place] [address] Sep, [facility] [address] [id number] [address] [place] [address], [place] [address] Sep, [facility] [address] [id number] [address] [place] [address], [place] [address] Sep, [facility] [address] [id number] [address] [place] [address], [place] [address] Sep, [facility] [address] [id number] [address] [place] [address], [place] [address] Aug, [facility] [address] [id number] [address] [place] [address], [place] [address] Aug, [facility] [address] [id number] [address] [place] [address], [place] [address] Aug, [facility] [address] [id number] [address] [place] [address], [place] [address] Aug, [facility] [address] [id number] [address] [place] [address], [place] [address] Aug, [facility] [address] [id number] [address] [place] [id number] Aug, [facility] [address] [id number] [address] [place] [address] Aug, [facility] [address] [id number] [address] [place] [address] Aug, [facility] [address] [id number] [address] [place] [address], [place] [address] Jul, [facility] [address] [id number] [address] [place] [address], [place] [address] Jul, [facility] [address] [id number] [address] [place] [address], [place] [address] Jun, [facility] [address] [id number] [address] [place] [address], [place] [address] May, [facility] [address] [id number] [address] [place] [address], [place] [address] Apr, [facility] [address] [id number] [address] [place] [address], [place] [address] Apr, [facility] [address] [id number] [address] [place] [address], [place] [address] Apr, [facility] [address] [id number] [address] [place] [address], [place] [address] March, [facility] [address] [id number] [address] [place] [address], [place] [address] March, [facility] [address] [id number] [address] [place] [address], [place] [address] March, [facility] [address] [id number] [address] [place] [address], [place] [address] March, [facility] [address] [id number] [address] [place] [address], [place] [address] March, [facility] [address] [id number] [address] [place] [address], [place] [address] March, [facility] [address] [id number] [address] [place] [address], [place] [address] March, [facility] [address] [id number] [address] [place] [address], [place] [address] Jan, [facility] [address] [id number] [address] [place] [address], [place] [address] Jan, [facility] [address] [id number] [address] [place] [address], [place] [address] Jan, [facility] [address] [id number] [address] [place] [address], [place] [address] Jan, [facility] [address] [id number] [address] [place] [address], [place] [address] Jan, [facility] [address] [id number] [address] [place] [address], [place] [address] 08 Dec, 2011 [facility] [address] [id number] [address] [place] [address], [place] [address] Dec, [facility] [address] [id number] [address] [place] [address], [place] [address] Nov, [facility] [address] [id number] [address] [place] [address], [place] [address] Nov, [facility] [address] [id number] [address] [place] [address], [place] [address] Nov, [facility] [address] [id number] [address] [place] [address], [place] [address] Nov, [facility] [address] [id number] [address] [place] [address], [place] [address] Oct, [facility] [address] [id number] [address] [place] [address], [place] [address] Oct, [facility] [address] [id number] [address] [place] [address], [place] [address] 14 Sep, 2011 [facility] [address] [id number] [address] [place] [address], [place] [address] Sep, [facility] [address] [id number] [address] [place] [address], [place] [address] Sep, [facility] [address] [id number] [address] [place] [address], [place] [address] May, [facility] [address] [id number] [address] [place] [address], [place] [address] Nov, [facility] [address] [id number] [address] [place] [address], [place] [address] 29 Oct, 2010 [facility] [address] [id number] [address] [place] [address], [place] [address] 14 Oct, 2010 [facility] [address] [id number] [address] [place] [id number] 08 Oct, 2010 [facility] [address] [id number] [address] [place] [id number] 15 Sep, 2010 [facility] [facility] [address] [id number] [address] [place] [id number] Sep, [facility] [address] [id number] [address] [place] [phone] Aug, [facility] [address] [id number] [address] [place] [id number] March, [facility] [address] [id number] [address] [place] [id number] Oct, [facility] [address] [id number] [address] [place] [phone] Oct, [facility] [address] [id number] [address] [place] [id number] Oct, [facility] [address] [id number] [address] [place] [id number] Oct, [facility] [address] [id number] [address] [place] [phone] Sep, [facility] [address] [id number] [address] [place] [id number] Sep, [facility] [address] [id number] [address] [place] [id number] Sep, [facility] [address] [id number] [address] [place] [id number] Aug, [facility] [address] [id number] [address] [place] [id number] 24 Aug, 2009 [facility] [address] [id number] [address] [place] [id number] Aug, [facility] [address] [id number] [address] [place] [id number] 10 Jan, 2009 IMMUNIZATIONS No Known Immunizations [...]
--- OUTSIDE RECORDS SUMMARY | 2020-06-13 16:45 | XMS REPORT ---
Author Author Jah Durant Doctor Organization [facility] Address Unknown Phone Unavailable Care Team Providers Care Assistant General Manager Name Role Phone Migration, Doctor Unavailable Unavailable PROBLEMS Type Condition ICD9-CM Code [id number] Code Onset Dates Condition S tatus SNOMED Code Problem Neuropathy G62.9 Active 793944678 Problem Chronic pain G89.29 Active 3786842 1 Problem Overactive bladder N32.81 Active 2 66132070 Problem Hypothyroid E03.9 Active 12545383 Problem Irritable bowel syndrome with diarrhea K58.0 Active 999534996 Problem [facility]FP current use of insulin Z79.4 Active 573277419 Problem Type 2 diabetes mellitus with hyperglycemia E11.65 Active 32633108 Problem Chronic obstructive pulmonary disease, unspecified COPD ty pe J44.9 Active 86167989 Problem Gastroesophageal reflux disease with esophagitis K 21.0 Active 935578711 Problem Major depressive disorder, recurrent, in full remission F33.42 Active 31771665 Problem Mixed hyperlipidemia E78.2 Active 826608890 Problem Essential (primary) hypertension I10 Active 87731795 Problem Anxiety disorder, unspecified type F41.9 Active 392766994 Problem Gastroparesis K31.84 Active 516113 006 Problem 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 Active [id number] ALLERGIES No Information ENCOUNTERS Encounter Location Date Diagnosis [facility] [address] [facility] [id number] [address] [place] [address] Jun, Other chronic pain G89.29 [facility] [address] [facility] [id number] [address] [place] [address] Jun, [facility] [address] [facility] [id number] [address] [place] [address] Jun, Chronic pain G89.29 [facility] [address] [facility] [id number] [address] [place] [address] Jun, Neuropathy G62.9 [facility] [address] [place] [id number] [address] [place] [address] Jun, Encounter for Medicare annua l wellness exam Z00.00 ; Type 2 diabetes mellitus with hyperglycemia E11.65 ; Mixed hyperlipidemia E78.2 ; Hypothyroid E03.9 ; Gastroesophageal reflux disease with esophagitis K21.0 ; Essential (primary) hypertension I10 ; Major depressive disorder, recurrent, in full remission F33.42 ; Chronic obstructive pulmonary disease, unspecified COPD type J44.9 ; Neuropathy G62.9 and Encounter for immunization Z23 [place] [address] [facility] [id number] [address] [place] [address] Jun, Irritable bowel syndrome wit h diarrhea K58.0 [place] [address] [facility] [id number] [address] [place] [address] May, Chronic pain G89.29 [place] [address] [place] [id number] [address] [place] [address] May, Type 2 diabetes mellitus wit h hyperglycemia E11.65 and Neuropathy G62.9 [place] [address] [facility] [id number] [address] [place] [address] May, Chronic pain G89.29 [place] [address] [facility] [id number] [address] [place] [address] Apr, Poison maryam dermatitis L23.7 [place] [address] [facility] [id number] [address] [place] [address] Apr, Chronic pain G89.29 [place] [address] [facility] [id number] [address] [place] [address] March, Type 2 diabetes mellitus wit h hyperglycemia E11.65 [place] [address] [facility] [id number] [address] [place] [address] March, Chronic pain G89.29 [place] [address] [facility] [id number] [address] [place] [address] March, [address] [address] Feb, [facility] [address] [facility] [id number] [address] [place] [address] 09 Feb, 2019 Other chronic pain G89.29 an d Chronic pain G89.29 [facility] [address] [facility] [id number] [address] [place] [address] Jan, Mixed hyperlipidemia E78.2 [facility] [address] [facility] [id number] [address] [place] [address] Jan, Chronic pain G89.29 [facility] [address] [facility] [id number] [address] [place] [address] 08 Jan, 2019 Type 2 diabetes mellitus wit h hyperglycemia E11.65 ; Mixed hyperlipidemia E78.2 ; MCFP current use of insulin Z79.4 ; Acquired hypothyroidism E03.9 and Essential (primary) hypertension I10 [facility] [address] [facility] [id number] [address] [place] [address] Dec, Chronic pain G89.29 [facility] [address] [facility] [id number] [address] [place] [address] Nov, Chronic pain G89.29 [facility] [address] [facility] [id number] [address] [place] [address] Nov, [facility] [address] [facility] [id number] [address] [place] [address] Oct, Chronic pain G89.29 [facility] [address] [facility] [id number] [address] [place] [address] Oct, [facility] [address] [facility] [id number] [address] [place] [address] Sep, [facility] [address] [facility] [id number] [address] [place] [address] Sep, Type 2 diabetes mellitus wit h hyperglycemia E11.65 [facility] [address] [facility] [id number] [address] [place] [address] 16 Sep, 2018 Chronic pain G89.29 [facility] [address] [address] Sep, [place] [address] [address] Sep, Type 2 diabetes mellitus wit h hyperglycemia E11.65 ; Irritable bowel syndrome with diarrhea K58.0 ; Gastroparesis K31.84 ; 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 and Dermatitis L30.9 [place] [address] [address] Aug, Chronic pain G89.29 [place] [address] [address] Jul, Chronic pain G89.29 [place] [address] [address] Jun, Type 2 diabetes mellitus wit h hyperglycemia E11.65 ; Neuropathy G62.9 ; Recurrent major depressive disorder, in partial remission F33.41 ; Chronic pain G89.29 and Hypertriglyceridemia E78.1 [place] [address] [address] Jun, Hypothyroid E03.9 [place] [address] [address] Jun, Major depressive disorder, r ecurrent episode, moderate F33.1 and Anxiety disorder, unspecified type F41.9 [place] [address] [address] Jun, [place] [address] [address] Jun, Type 2 diabetes mellitus wit h hyperglycemia E11.65 ; 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.4 ; Recurrent major depressive disorder, in partial remission F33.41 ; Hypothyroid E03.9 ; Candidal dermatitis B37.2 and Weakness generalized R53.1 [place] [address] [address] May, [facility] [address] [facility] [id number] [address] [place] [address] May, [facility] [address] [facility] [id number] [address] [place] [address] May, [facility] [address] [facility] [id number] [address] [place] [address] May, Generalized abdominal pain R 10.84 and Candidal dermatitis B37.2 [facility] [address] [facility] [id number] [address] [place] [address] May, [facility] [address] [facility] [id number] [address] [place] [address] May, [facility] [address] [facility] [id number] [address] [place] [address] May, Nodular radiologic density R 93.8 ; Weight loss, unintentional R63.4 and Pulmonary emphysema, unspecified emphysema type J43.9 [place] [address] [place] [id number] [address] [place] [address] May, Chronic pain G89.29 [place] [address] [place] [id number] [address] [place] [address] May, Syncope and collapse R55 ; C hronic fatigue R53.[address] lung screening R91.8 [place] [address] [place] [id number] [address] [place] [address] May, [place] [address] [place] [id number] [address] [place] [address] Apr, Chronic fatigue R53.82 ; Abn ormal chest CT R93.8 ; Elevated erythrocyte sedimentation rate R70.0 ; Hypothyroid E03.9 and Recurrent major depressive disorder, in partial remission F33.41 [place] [address] [facility] [id number] [address] [place] [address] Apr, Hypothyroid E03.9 [place] [address] [facility] [id number] [address] [place] [address] Apr, Depression F32.9 [place] [address] [facility] [id number] [address] [place] [address] Apr, [place] [address] [facility] [id number] [address] [place] [address] March, [place] [address] [facility] [id number] [address] [place] [address] March, Hypothyroid E03.9 [place] [address] [facility] [id number] [address] [place] [address] March, Diabetes mellitus E11.9 and Hypothyroid E03.9 [place] [address] [facility] [id number] [address] [place] [address] March, Diabetes mellitus E11.9 [place] [address] [place] [id number] [address] [place] [address] March, Hypothyroid E03.9 and Elevat ed liver enzymes R74.8 [place] [address] [facility] [id number] [address] [place] [address] March, Type 2 diabetes mellitus wit h [...] disorder, in partial remission F33.41 [place] [address] [facility] [id number] [address] [place] [address] Feb, Chronic pain G89.29 [place] [address] [place] [id number] [address] [place] [address] Feb, Type 2 diabetes mellitus wit h hyperglycemia E11.65 and Skin lesion of scalp L98.9 [place] [address] [place] [id number] [address] [place] [address] Feb, [place] [address] [facility] [id number] [address] [place] [address] Jan, Type 2 diabetes mellitus wit h [...] bowel syndrome with diarrhea K58.0 [place] [address] [facility] [id number] [address] [place] [address] Jan, [place] [address] [place] [id number] [address] [place] [address] Jan, Controlled substance agreeme nt signed Z79.899 [place] [address] [place] [id number] [address] [place] [address] Dec, Type 2 diabetes mellitus wit h [...] and Overweight (BMI 25.0-29.9) E66.3 [place] [address] [place] [id number] [address] [place] [address] Dec, Controlled substance agreeme nt signed Z79.899 [place] [address] [place] [id number] [address] [place] [address] Nov, Type 2 diabetes mellitus wit h hyperglycemia E11.65 and Current non- adherence to medical treatment Z91.19 [place] [address] [place] [id number] [address] [place] [address] Nov, [facility] [address] [id number] [address] [place] [address] Nov, Chronic pain G89.29 [facility] [address] [id number] [address] [place] [address] Nov, [facility] [address] [facility] [id number] [address] [place] [address] Nov, Hypothyroid E03.9 [facility] [address] [id number] [address] [place] [address] Nov, Hypothyroid E03.9 [facility] [address] [id number] [address] [place] [address] Nov, Pulmonary emphysema, unspeci fied emphysema type J43.9 and Irritable bowel syndrome with diarrhea K58.0 [facility] [address] [facility] [id number] [address] [place] [address] Oct, [facility] [address] [facility] [id number] [address] [place] [address] Oct, [facility] [address] [id number] [address] [place] [address] Oct, [facility] [address] [facility] [id number] [address] [place] [address] Oct, [facility] [address] [facility] [id number] [address] [place] [address] Oct, Chronic pain G89.29 [facility] [address] [id number] [address] [place] [id number] Oct, Diabetes mellitus E11.9 ; De pression F32.9 ; Mixed hyperlipidemia E78.2 ; Hypotension, unspecified hypotension type I95.9 ; Pulmonary emphysema, unspecified emphysema type J43.9 and Weight loss, unintentional R63.4 [facility] [address] [facility] [id number] [address] [place] [address] Oct, Chronic pain G89.29 [facility] [address] [place] [id number] [address] [place] [address] Sep, Chronic pain G89.29 [facility] [address] [place] [id number] [place] [address] Sep, Hypothyroid E03.9 and Diabet es mellitus E11.9 [facility] [address] [place] [id number] [address] [place] [address] Aug, Type 2 diabetes mellitus wit h hyperglycemia E11.65 ; [facility]FP current use of insulin Z79.4 ; Essential (primary) hypertension I10 ; Hypothyroid E03.9 ; Neuropathy G62.9 ; Chronic pain G89.29 ; Mixed hy perlipidemia E78.2 and Encounter for immunization Z23 [facility] [address] [place] [id number] [address] [place] [address] Aug, Chronic pain G89.29 [place] [address] [address] Aug, Overactive bladder N32.81 ; Diabetes mellitus E11.9 and Chronic pain G89.29 [place] [address] [place] [id number] [address] [place] [address] Jul, [place] [address] [address] Jun, [place] [address] [address] Jun, [facility] [address] [place] [id number] [address] [place] [address] Jun, Hypothyroid E03.9 [facility] [address] [place] [id number] [address] [place] [address] Jun, Diabetes mellitus E11.9 ; Hy pothyroid E03.9 ; Neuropathy G62.9 ; Chronic pain G89.29 and Neck mass R22.1 [facility] [address] [place] [id number] [address] [place] [address] Apr, [facility] [address] [place] [id number] [address] [place] [address] Apr, Acute cystitis without hemat uria N30.00 [facility] [address] [place] [id number] [address] [place] [address] March, [facility] [address] [place] [id number] [address] [place] [address] March, [facility] [address] [address] March, Near syncope R55 [facility] [address] [address] Feb, [facility] [address] [address] Feb, Chronic pain G89.29 [place] [address] [address] Feb, [facility] [address] [place] [id number] [address] [place] [address] Feb, [facility] [address] [address] Jan, Chronic pain G89.29 [facility] [address] [address] Jan, [facility] [address] [address] Jan, [facility] [address] [place] [id number] [address] [place] [address] 14 Jan, 2017 Diabetes mellitus E11.9 ; Hy pothyroid E03.9 ; GERD (gastroesophageal reflux disease) K21.9 ; Insomnia G47.00 ; Functional diarrhea 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 ; Neuropathy G62.9 ; Depression F32.9 ; Chronic pain G89.29 ; Irritable bowel syndrome with diarrhea K58.0 ; Overactive bladder N32.81 ; Mixed hyperlipidemia E78.2 and Bronchitis J40 [facility] [address] [place] [id number] [address] [place] [address] Dec, [facility] [address] [facility] [id number] [address] [place] [address] Dec, [facility] [address] [facility] [id number] [address] [place] [address] Dec, [facility] [address] [facility] [id number] [address] [place] [address] Dec, [facility] [address] [facility] [id number] [address] [place] [address] Dec, Chronic pain G89.29 [facility] [address] [facility] [id number] [address] [place] [address] Dec, [facility] [address] [place] [id number] [address] [place] [address] Dec, [facility] [address] [place] [id number] [address] [place] [address] Dec, Type 2 diabetes mellitus wit h foot ulcer E11.621 [facility] [address] [place] [id number] [address] [place] [address] 17 Dec, 2016 Type 2 diabetes mellitus wit h foot ulcer E11.621 [facility] [id number] [place] [address] 14 Dec, 2016 HTN (hypertension) I10 ; Dep ression F32.9 ; Type 2 diabetes mellitus with foot ulcer E11.621 ; Functional diarrhea K59.1 ; Irritable bowel syndrome with diarrhea K58.0 ; Chronic pain G89.29 ; Insomnia G47.00 ; Overactive bladder N32.81 ; Mixed hyperlipidemia E78.2 ; Gastroesophageal reflux disease with esophagitis K21.0 and Acquired hypothyroidism E03.9 [facility] [address] [place] [id number] [address] [place] [address] Nov, [facility] [id number] [place] [address] Oct, [place] [address] [address] Oct, [place] [address] [address] Oct, [place] [address] [address] Sep, Functional diarrhea 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 ; HTN (hypertension) I10 ; Diabetes mellitus E11.9 ; Depression F32.9 ; Overactive bladder N32.81 ; Mixed hyperlipidemia E78.2 ; Gastroesophageal reflux disease without esophagitis K21.9 ; Chronic pain G89.29 ; Insomnia G47.00 and Acquired hypothyroidism E03.9 [place] [address] [address] Sep, [place] [address] [address] Aug, Encounter for immunization Z 23 [place] [address] [address] 06 Aug, 2016 [place] [address] [address] Jul, [place] [address] [address] Jun, Type 2 diabetes mellitus wit hout complications E11.9 ; HTN (hypertension) I10 ; Hypothyroid E03.9 ; Neuropathy G62.9 ; Depression F32.9 ; Chronic pain G89.29 ; GERD (gastroesophageal reflux disease) K21.9 ; Insomnia G47.00 ; Overactive bladder N32.81 ; Mixed hyperlipidemia E78.2 ; Diarrhea of infectious origin A09 and Environmental allergies Z91.09 [place] [address] [place] [id number] [address] [place] [address] Apr, [place] [address] [address] March, Hypothyroidism, unspecified E03.9 and Mixed hyperlipidemia E78.2 [place] [address] [place] [id number] [address] [place] [address] March, Diabetes mellitus E11.9 ; HT N (hypertension) I10 ; Hypothyroid E03.9 ; Depression F32.9 ; Overactive bladder N32.81 ; Other chronic pain G89.29 ; Lumbago with sciatica, unspecified side M54.40 ; Environmental allergies Z91.09 and Gastroesophageal reflux disease, esophagitis presence not specified K21.9 [place] [address] [place] [id number] [address] [place] [address] March, [place] [address] [address] Jan, HTN (hypertension) I10 ; Hyp othyroid E03.9 ; Neuropathy G62.9 ; Diabetes mellitus E11.9 ; Chronic pain G89.29 ; GERD (gastroesophageal reflux disease) K21.9 ; Overactive bladder N32.81 and Depression F32.9 [place] [address] [place] [id number] [address] [place] [address] Dec, Ear pain, left H92.02 ; HTN (hypertension) I10 ; Hypothyroid E03.9 ; Neuropathy G62.9 ; Diabetes mellitus E11.9 ; Depression F32.9 ; GERD (gastroesophageal reflux disease) K21.9 ; Insomnia G47.00 and Overactive bladder N32.81 [place] [address] [place] [id number] [address] [place] [address] Nov, Overactive bladder N32.81 an d Chronic pain G89.29 [place] [address] [facility] [id number] [address] [place] [address] Nov, Kidney failure N19 [place] [address] [place] [id number] [address] [place] [address] Nov, [place] [address] [place] [id number] [address] [place] [address] Nov, [place] [address] [address] Nov, Diabetes mellitus E11.9 ; De pression F32.9 ; Chronic pain G89.29 ; GERD (gastroesophageal reflux disease) K21.9 ; Insomnia G47.00 ; HTN (hypertension) I10 ; Hypothyroid E03.9 ; COPD (chronic obstructive pulmonary disease) J44.9 ; Bladder incontinence R32 and Incontinence R32 [place] [address] [address] Sep, Type 2 diabetes mellitus wit h foot ulcer E11.621 and Chromosomal abnormality, 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 [address] Sep, [place] [address] [address] Aug, [address] [address] Aug, [place] [address] [address] Aug, HTN (hypertension) I10 ; Enc ounter for immunization Z23 ; Hypothyroid E03.9 ; Neuropathy G62.9 ; Diabetes mellitus E11.9 ; Depression F32.9 ; Chronic pain G89.29 ; GERD (gastroesophageal reflux disease) K21.9 ; Insomnia G47.00 and COPD (chronic obstructive pulmonary disease) J44.9 [place] [address] [address] Jun, [place] [address] [address] Jun, [address] [address] May, Essential hypertension, ivis gn 401.1 ; Unspecified hypothyroidism 244.9 ; Insomnia, unspecified 780.52 ; Shortness of breath 786.05 ; Depression 311 ; COPD (chronic obstructive pulmonary disease) 496 ; GERD (gastroesophageal reflux disease) 530.81 and Diabetes 1.5, 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 [facility] [address] [facility] [id number] [address] [place] [address] May, [facility] [address] [facility] [id number] [address] [place] [address] May, [facility] [address] [facility] [id number] [address] [place] [address] May, Shortness of breath 786.05 ; Essential hypertension, benign 401.1 ; Diabetes mellitus 250.00 ; Hyperlipidemia 272.4 ; Hypothyroid 244.9 ; Insomnia 780.52 and Cough 786.2 [facility] [address] [facility] [id number] [address] [place] [address] Apr, [facility] [address] [facility] [id number] [address] [place] [id number] March, Shortness of breath 786.05 ; Nausea with vomiting 787.01 ; Essential hypertension, benign 401.1 ; Diabetes mellitus 250.00 ; Hyperlipidemia 272.4 and Hypothyroid 244.9 [facility] [address] [place] [id number] [address] [place] [id number] Feb, [facility] [address] [facility] [id number] [address] [place] [id number] Feb, [facility] [address] [facility] [id number] [address] [place] [id number] Jan, [facility] [address] [facility] [id number] [address] [place] [id number] Jan, [facility] [address] [facility] [id number] [address] [place] [id number] Jan, [facility] [address] [facility] [id number] [address] [place] [id number] Jan, [facility] [address] [facility] [id number] [address] [place] [id number] Jan, [facility] [address] [place] [id number] [place] [address] Jan, [facility] [address] [id number] [address] [place] [address], [place] [address] Jan, [facility] [address] [id number] [address] [place] [address], [place] [address] Jan, [facility] [address] [id number] [address] [place] [address], [place] [address] Jan, [facility] [address] [id number] [address] [place] [address], [place] [address] Jan, [facility] [address] [id number] [address] [place] [address], [place] [address] Dec, 2014 [facility] [address] [id number] [address] [place] [address], [place] [address] Dec, 2014 [facility] [address] [id number] [address] [place] [address], [place] [address] Dec, 2014 [facility] [address] [id number] [address] [place] [address], [place] [address] Dec, 2014 [facility] [address] [id number] [address] [place] [address], [place] [address] Dec, 2014 [facility] [address] [id number] [address] [place] [address], [place] [address] Dec, 2014 [facility] [address] [id number] [address] [place] [address], [place] [address] Dec, 2014 [facility] [address] [id number] [address] [place] [address] Dec, 2014 [facility] [address] [id number] [address] [place] [address], [place] [address] Dec, 2014 [facility] [address] [id number] [address] [place] [address] Dec, 2014 [facility] [address] [id number] [address] [place] [address] Oct, [facility] [address] [id number] [address] [place] [address], [place] [address] Oct, [facility] [address] [id number] [address] [place] [address], [place] [address] Oct, [facility] [address] [id number] [address] [place] [address], [place] [address] Oct, [facility] [address] [id number] [address] [place] [address], [place] [address] Oct, [facility] [address] [id number] [address] [place] [address], [place] [address] Oct, [facility] [address] [id number] [address] [place] [address], [place] [address] Oct, [facility] [address] [id number] [address] [place] [address], [place] [address] Oct, [facility] [address] [id number] [address] [place] [address], [place] [address] Oct, [facility] [address] [id number] [address] [place] [address], [place] [address] Oct, [facility] [address] [id number] [address] [place] [address], [place] [address] Oct, [facility] [address] [id number] [address] [place] [address], [place] [address] Oct, [facility] [address] [id number] [address] [place] [address], [place] [address] Oct, [facility] [address] [id number] [address] [place] [address], [place] [address] Oct, [facility] [address] [id number] [address] [place] [address], [place] [address] Sep, [facility] [address] [id number] [address] [place] [address], [place] [address] Sep, [facility] [address] [id number] [address] [place] [address] Sep, [facility] [address] [id number] [address] [place] [address], [place] [address] Sep, [facility] [address] [id number] [address] [place] [address] Sep, [facility] [address] [id number] [address] [place] [address], [place] [address] Sep, [facility] [address] [id number] [address] [place] [address], [place] [address] Sep, [facility] [address] [id number] [address] [place] [address], [place] [address] Sep, [facility] [address] [id number] [address] [place] [address], [place] [address] Sep, [facility] [address] [id number] [address] [place] [address], [place] [address] Aug, [facility] [address] [id number] [address] [place] [address], [place] [address] Aug, [facility] [address] [id number] [address] [place] [address] Aug, [facility] [address] [id number] [address] [place] [address], [place] [address] Aug, [facility] [address] [id number] [address] [place] [address] 16 Aug, 2014 [facility] [address] [id number] [address] [place] [address] Aug, [facility] [address] [id number] [address] [place] [address], [place] [address] Aug, [facility] [address] [id number] [address] [place] [address] Aug, [facility] [address] [id number] [address] [place] [address], [place] [address] Aug, [facility] [address] [id number] [facility] [place] [address] 29 Jul, 2013 [facility] [address] [id number] [facility] [address] 29 Jul, 2013 [facility] [address] [id number] [facility] [address] Jul, 2013 [facility] [address] [id number] [facility] [address] Jul, 2013 [facility] [address] [id number] [facility] [address] Jul, 2013 [facility] [address] [id number] [address] [place] [address], [place] [address] Jul, 2013 [facility] [address] [id number] [address] [place] [address], [place] [address] Jul, 2013 [facility] [address] [id number] [address] [place] [address], [place] [address] Jul, 2013 [facility] [address] [id number] [address] [place] [address], [place] [address] Jul, [facility] [address] [id number] [address] [place] [address], [place] [address] Jul, [facility] [address] [id number] [address] [place] [address], [place] [address] Jun, [facility] [address] [id number] [address] [place] [address], [place] [address] Jun, [facility] [address] [id number] [address] [place] [address], [place] [address] Jun, [facility] [address] [id number] [address] [place] [address], [place] [address] Jun, [facility] [address] [id number] [address] [place] [address], [place] [address] Jun, [facility] [address] [id number] [address] [place] [address], [place] [address] Jun, [facility] [address] [id number] [facility] [address] Jun, [facility] [address] [id number] [facility] [address] Jun, [facility] [address] [id number] [facility] [address] Jun, [facility] [address] [id number] [address] [place] [address], [place] [address] Jun, [facility] [address] [id number] [address] [place] [address], [place] [address] Jun, [facility] [address] [id number] [address] [place] [address], [place] [address] Jun, [facility] [address] [id number] [address] [place] [address], [place] [address] May, [facility] [address] [id number] [address] [place] [address], [place] [address] May, [facility] [address] [id number] [address] [place] [address], [place] [address] May, [facility] [address] [id number] [address] [place] [address], [place] [address] May, [facility] [address] [id number] [address] [place] [address], [place] [address] May, [facility] [address] [id number] [address] [place] [address], [place] [address] May, [facility] [address] [id number] [address] [place] [address], [place] [address] March, [facility] [address] [id number] [address] [place] [address], [place] [address] March, [facility] [address] [id number] [address] [place] [address], [place] [address] March, [facility] [address] [id number] [address] [place] [address], [place] [address] March, [facility] [address] [id number] [address] [place] [address], [place] [address] March, [facility] [address] [id number] [address] [place] [address], [place] [address] March, [facility] [address] [id number] [address] [place] [address], [place] [address] Feb, [facility] [address] [id number] [address] [place] [address], [place] [address] Feb, [facility] [address] [id number] [address] [place] [address], [place] [address] Feb, [facility] [address] [id number] [address] [place] [address], [place] [address] Feb, [facility] [address] [id number] [address] [place] [address], [place] [address] Jan, [facility] [address] [id number] [address] [place] [address], [place] [address] Jan, [facility] [address] [id number] [address] [place] [address], [place] [address] Jan, [facility] [address] [id number] [address] [place] [address], [place] [address] Jan, [facility] [address] [id number] [address] [place] [address], [place] [address] Jan, [facility] [address] [id number] [address] [place] [address], [place] [address] Jan, [facility] [address] [id number] [address] [place] [address], [place] [address] Jan, [facility] [address] [id number] [address] [place] [address], [place] [address] Jan, [facility] [address] [id number] [address] [place] [address], [place] [address] Jan, [facility] [address] [id number] [address] [place] [address], [place] [address] Jan, [facility] [address] [id number] [address] [place] [address], [place] [address] Jan, [facility] [address] [id number] [address] [place] [address], [place] [address] Jan, [facility] [address] [id number] [address] [place] [address], [place] [address] Dec, [facility] [address] [id number] [address] [place] [address], [place] [address] Dec, [facility] [address] [id number] [address] [place] [address], [place] [address] Dec, [facility] [address] [id number] [address] [place] [address], [place] [address] Dec, [facility] [address] [id number] [address] [place] [address], [place] [address] Dec, [facility] [address] [id number] [address] [place] [address], [place] [address] Dec, [facility] [address] [id number] [address] [place] [address], [place] [address] Nov, [facility] [address] [id number] [address] [place] [address], [place] [address] Nov, [facility] [address] [id number] [address] [place] [address], [place] [address] Oct, [facility] [address] [id number] [address] [place] [address], [place] [address] Oct, [facility] [address] [id number] [address] [place] [address], [place] [address] Oct, [facility] [address] [id number] [address] [place] [address], [place] [address] Oct, [facility] [address] [id number] [address] [place] [address], [place] [address] Oct, [facility] [address] [id number] [address] [place] [address], [place] [address] Oct, [facility] [address] [id number] [address] [place] [address], [place] [address] Sep, [facility] [address] [id number] [address] [place] [address], [place] [address] Sep, [facility] [address] [id number] [address] [place] [address], [place] [address] Sep, [facility] [address] [id number] [address] [place] [address], [place] [address] Sep, [facility] [address] [id number] [address] [place] [address], [place] [address] Aug, [facility] [address] [id number] [address] [place] [address], [place] [address] Aug, [facility] [address] [id number] [address] [place] [address], [place] [address] Aug, [facility] [address] [id number] [address] [place] [address], [place] [address] Jul, [facility] [address] [id number] [address] [place] [address], [place] [address] 14 Jul, 2013 [facility] [address] [id number] [address] [place] [address], [place] [address] Jul, [facility] [address] [id number] [address] [place] [address], [place] [address] Jun, [facility] [address] [id number] [address] [place] [address], [place] [address] Jun, [facility] [address] [id number] [address] [place] [address], [place] [address] Jun, [facility] [address] [id number] [address] [place] [address], [place] [address] Apr, [facility] [address] [id number] [address] [place] [address], [place] [address] Apr, [facility] [address] [id number] [address] [place] [address], [place] [address] March, [facility] [address] [id number] [address] [place] [address], [place] [address] March, [facility] [address] [id number] [address] [place] [address], [place] [address] March, [facility] [address] [id number] [address] [place] [address], [place] [address] March, [facility] [address] [id number] [address] [place] [address], [place] [address] Feb, [facility] [address] [id number] [address] [place] [address], [place] [address] Jan, [facility] [address] [id number] [address] [place] [address], [place] [address] Dec, [facility] [address] [id number] [address] [place] [address], [place] [address] Dec, [facility] [address] [id number] [address] [place] [address], [place] [address] Dec, [facility] [address] [id number] [address] [place] [address], [place] [address] Nov, [facility] [address] [id number] [address] [place] [address], [place] [address] Oct, [facility] [address] [id number] [address] [place] [address], [place] [address] Oct, [facility] [address] [id number] [address] [place] [address], [place] [address] Sep, [facility] [address] [id number] [address] [place] [address], [place] [address] Sep, [facility] [address] [id number] [address] [place] [address], [place] [address] Sep, [facility] [address] [id number] [address] [place] [address], [place] [address] Sep, [facility] [address] [id number] [address] [place] [address], [place] [address] Sep, [facility] [address] [id number] [address] [place] [address], [place] [address] Sep, [facility] [address] [id number] [address] [place] [address], [place] [address] Sep, [facility] [address] [id number] [address] [place] [address], [place] [address] Aug, [facility] [address] [id number] [address] [place] [address], [place] [address] Aug, [facility] [address] [id number] [address] [place] [address], [place] [address] Aug, [facility] [address] [id number] [address] [place] [address], [place] [address] Aug, [facility] [address] [id number] [address] [place] [address], [place] [address] Aug, [facility] [address] [id number] [address] [place] [address] Aug, [facility] [address] [id number] [address] [place] [address] Aug, [facility] [address] [id number] [address] [place] [address] Aug, [facility] [address] [id number] [address] [place] [address], [place] [address] Jul, [facility] [address] [id number] [address] [place] [address], [place] [address] Jul, [facility] [address] [id number] [address] [place] [address], [place] [address] Jun, [facility] [address] [id number] [address] [place] [address], [place] [address] May, [facility] [address] [id number] [address] [place] [address], [place] [address] Apr, [facility] [address] [id number] [address] [place] [address], [place] [address] Apr, [facility] [address] [id number] [address] [place] [address], [place] [address] Apr, [facility] [address] [id number] [address] [place] [address], [place] [address] March, [facility] [address] [id number] [address] [place] [address], [place] [address] March, [facility] [address] [id number] [address] [place] [address], [place] [address] March, [facility] [address] [id number] [address] [place] [address], [place] [address] March, [facility] [address] [id number] [address] [place] [address], [place] [address] March, [facility] [address] [id number] [address] [place] [address], [place] [address] March, [facility] [place] [address] [id number] [address] [place] [address], [place] [address] March, [facility] [address] [id number] [address] [place] [address], [place] [address] Jan, [facility] [address] [id number] [address] [place] [address], [place] [address] Jan, [facility] [address] [id number] [address] [place] [address], [place] [address] Jan, [facility] [address] [id number] [address] [place] [address], [place] [address] Jan, [facility] [address] [id number] [address] [place] [address], [place] [address] Jan, [facility] [address] [id number] [address] [place] [address], [place] [address] 08 Dec, 2011 [facility] [address] [id number] [address] [place] [address], [place] [address] Dec, [facility] [address] [id number] [address] [place] [address], [place] [address] Nov, [facility] [address] [id number] [address] [place] [address], [place] [address] Nov, [facility] [address] [id number] [address] [place] [address], [place] [address] Nov, [facility] [address] [id number] [address] [place] [address], [place] [address] Nov, [facility] [address] [id number] [address] [place] [address], [place] [address] Oct, [facility] [address] [id number] [address] [place] [address], [place] [address] Oct, [facility] [address] [id number] [address] [place] [address], [place] [address] 14 Sep, 2011 [facility] [address] [id number] [address] [place] [address], [place] [address] Sep, [facility] [address] [id number] [address] [place] [address], [place] [address] Sep, [facility] [address] [id number] [address] [place] [address], [place] [address] May, [facility] [address] [id number] [address] [place] [address], [place] [address] Nov, [facility] [address] [id number] [address] [place] [address], [place] [address] 29 Oct, 2010 [facility] [address] [id number] [address] [place] [address], [place] [address] 14 Oct, 2010 [facility] [address] [id number] [address] [place] [id number] 08 Oct, 2010 [facility] [place] [address] [id number] [address] [place] [address] 15 Sep, 2010 [facility] [place] [address] [id number] [address] [place] [address] Sep, [facility] [address] [id number] [address] [place] [address] Aug, [facility] [address] [id number] [address] [place] [address] March, [facility] [address] [id number] [address] [place] [address] Oct, [facility] [address] [id number] [address] [place] [address] Oct, [facility] [place] [address] [id number] [address] [place] [id number] Oct, [facility] [place] [address] [id number] [address] [place] [address] Oct, [facility] [place] [address] [id number] [address] [place] [address] Sep, [facility] [place] [address] [id number] [address] [place] [address] Sep, [facility] [place] [address] [id number] [address] [place] [id number] Sep, [facility] [place] [address] [id number] [address] [place] [id number] Aug, [facility] [place] [address] [id number] [address] [place] [id number] 24 Aug, 2009 [facility] [place] [address] [id number] [address] [place] [id number] Aug, [facility] [place] [address] [id number] [address] [place] [id number] 10 Jan, 2009 IMMUNIZATIONS No Known Immunizations SOCIAL HISTORY Never Assessed REASON FOR VISIT PLAN OF CARE VITAL SIGNS Height 69 in 2014-07-07 Weight 232 lbs 2014-07-07 Temperature 96.6 degrees Fahrenheit 2014-07-07 Heart Rate 90 bpm 2014-07-07 Respiratory Rate 16 2014-07-07 Blood pressure systolic 112 mmHg 2014-07-07 Blood pressure diastolic 74 mmHg 2014-07-07 MEDICATIONS Unknown Medications RESULTS No Results PROCEDURES Procedure Date Ordered Result Body Site IRON BINDING TEST Jul 07, 2014 FOOT EXAM PERFORMED Jul 07, 2014 ASSAY OF IRON Jul 07, 2014 GLYCATED HEMOGLOBIN TEST Jul 07, 2014 ASSAY OF FERRITIN Jul 07, 2014 MICROALBUMIN, SEMIQUANT Jul 07, 2014 ACUTE HEPATITIS PANEL Jul 07, 2014 LIPID PANEL Jul 07, 2014 COMPREHEN METABOLIC PANEL Jul 07, 2014 VENIPUNCT, ROUTINE* Jul 07, 2014 INSTRUCTIONS MEDICATIONS ADMINISTERED No Known Medications [...]
[2020-06-13 16:46] LABS: CALCIUM 9.6 MG/DL (8.5-10.1)
--- OUTSIDE RECORDS SUMMARY | 2020-06-13 16:46 | XMS REPORT ---
Author Author Jah Durant Doctor Organization [facility] Address Unknown Phone Unavailable Care Team Providers Care Polysomnographer Name Role Phone Migration, Doctor Unavailable Unavailable PROBLEMS Type Condition ICD9-CM Code [id number] Code Onset Dates Condition S tatus SNOMED Code Problem Neuropathy G62.9 Active 959391763 Problem Chronic pain G89.29 Active 3503787 1 Problem Overactive bladder N32.81 Active 2 90066887 Problem Hypothyroid E03.9 Active 57059531 Problem Irritable bowel syndrome with diarrhea K58.0 Active 489563784 Problem FDC current use of insulin Z79.4 Active 551531889 Problem Type 2 diabetes mellitus with hyperglycemia E11.65 Active 56995682 Problem Chronic obstructive pulmonary disease, unspecified COPD ty pe J44.9 Active 09335900 Problem Gastroesophageal reflux disease with esophagitis K 21.0 Active 853790268 Problem Major depressive disorder, recurrent, in full remission F33.42 Active 67854357 Problem Mixed hyperlipidemia E78.2 Active 259770909 Problem Essential (primary) hypertension I10 Active 96311160 Problem Anxiety disorder, unspecified type F41.9 Active 969990595 Problem Gastroparesis K31.84 Active 173282 006 Problem 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 Active [id number] ALLERGIES No Information ENCOUNTERS Encounter Location Date Diagnosis [place] [address] [address] [facility] [id number] [address] [place] [address] Jun, Encounter for Medicare annua l wellness [...] and Encounter for immunization Z23 [id number] [facility] [id number] [address] [place] [address] Jun, Irritable bowel syndrome wit h diarrhea K58.0 [facility] [address] [id number] [address] [place] [address] May, Chronic pain G89.29 [facility] [address] [id number] [address] [place] [address] May, Type 2 diabetes mellitus wit h hyperglycemia E11.65 and Neuropathy G62.9 [facility] [address] [id number] [address] [place] [address] May, Chronic pain G89.29 [facility] [address] [id number] [address] [place] [address] Apr, Poison maryam dermatitis L23.7 [facility] [address] [facility] [id number] [address] [place] [address] Apr, Chronic pain G89.29 [facility] [address] [id number] [address] [place] [address] March, Type 2 diabetes mellitus wit h hyperglycemia E11.65 [facility] [address] [facility] [id number] [address] [place] [address] March, Chronic pain G89.29 [facility] [address] [facility] [id number] [address] [place] [address] March, [address] [address] Feb, [facility] [address] [id number] [address] [place] [address] Feb, Other chronic pain G89.29 an d Chronic pain G89.29 [facility] [address] [id number] [address] [place] [address] Jan, Mixed hyperlipidemia E78.2 [facility] [address] [id number] [address] [place] [address] Jan, Chronic pain G89.29 [facility] [address] [facility] [id number] [address] [place] [address] Jan, Type 2 diabetes mellitus wit h hyperglycemia E11.65 ; Mixed hyperlipidemia E78.2 ; FDC current use of insulin Z79.4 ; Acquired hypothyroidism E03.9 and Essential (primary) hypertension I10 [facility] [address] [facility] [id number] [address] [place] [address] 11 Dec, 2018 Chronic pain G89.29 [place] [address] [address] [facility] [id number] [address] [place] [address] Nov, Chronic pain G89.29 [place] [address] [address] [facility] [id number] [address] [place] [address] Nov, [place] [address] [address] [facility] [id number] [address] [place] [address] Oct, Chronic pain G89.29 [place] [address] [address] [place] [id number] [address] [place] [address] Oct, [place] [address] [address] [facility] [id number] [address] [place] [address] Sep, [place] [address] [address] [facility] [id number] [address] [place] [address] Sep, Type 2 diabetes mellitus wit h hyperglycemia E11.65 [place] [address] [address] [facility] [id number] [address] [place] [address] 16 Sep, 2018 Chronic pain G89.29 [place] [address] [address] [place] [id number] [address] [place] [address] Sep, [place] [address] [address] [facility] [id number] [address] [place] [address] Sep, Type 2 diabetes mellitus wit h hyperglycemia E11.65 ; Irritable bowel syndrome with diarrhea K58.0 ; Gastroparesis K31.84 ; 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 and Dermatitis L30.9 [place] [address] [address] [facility] [id number] [address] [place] [address] Aug, Chronic pain G89.29 [place] [address] [address] [facility] [id number] [address] [place] [address] Jul, Chronic pain G89.29 [place] [address] [place] [id number] [address] [place] [address] Jun, Type 2 diabetes mellitus wit h hyperglycemia E11.65 ; Neuropathy G62.9 ; Recurrent major depressive disorder, in partial remission F33.41 ; Chronic pain G89.29 and Hypertriglyceridemia E78.1 [place] [address] [address] [facility] [id number] [address] [place] [address] Jun, Hypothyroid E03.9 [place] [address] [address] [facility] [id number] [place] [address] Jun, Major depressive disorder, r ecurrent episode, moderate F33.1 and Anxiety disorder, unspecified type F41.9 [place] [address] [place] [id number] [address] [place] [address] Jun, [place] [address] [address] [place] [id number] [address] [place] [address] Jun, Type 2 diabetes mellitus wit h hyperglycemia E11.65 ; 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.4 ; Recurrent major depressive disorder, in partial remission F33.41 ; Hypothyroid E03.9 ; Candidal dermatitis B37.2 and Weakness generalized R53.1 [place] [id number] [address] [place] [address] May, [place] [address] [address] [place] [id number] [address] [place] [address] May, [place] [address] [address] [place] [id number] [address] [place] [address] May, [place] [address] [address] [place] [id number] [address] [place] [address] May, Generalized abdominal pain R 10.84 and Candidal dermatitis B37.2 [place] [address] [address] [place] [id number] [address] [place] [address] May, [place] [facility] [id number] [address] [place] [address] May, [place] [address] [address] [facility] [id number] [address] [place] [address] May, Nodular radiologic density R 93.8 ; Weight loss, unintentional R63.4 and Pulmonary emphysema, unspecified emphysema type J43.9 [place] [address] [address] [facility] [id number] [address] [place] [address] May, Chronic pain G89.29 [place] [address] [address] [facility] [id number] [address] [place] [address] 09 May, 2018 Syncope and collapse R55 ; C hronic fatigue R53.[address] lung screening R91.8 [place] [address] [address] [facility] [id number] [address] [place] [address] May, [place] [address] [address] [facility] [id number] [address] [place] [address] Apr, Chronic fatigue R53.82 ; Abn ormal chest CT R93.8 ; Elevated erythrocyte sedimentation rate R70.0 ; Hypothyroid E03.9 and Recurrent major depressive disorder, in partial remission F33.41 [place] [address] [address] [facility] [id number] [address] [place] [address] Apr, Hypothyroid E03.9 [place] [address] [address] [facility] [id number] [address] [place] [address] Apr, Depression F32.9 [place] [address] [address] [facility] [id number] [address] [place] [address] Apr, [place] [address] [address] [facility] [id number] [address] [place] [address] March, [place] [address] [address] [facility] [id number] [address] [place] [address] March, Hypothyroid E03.9 [place] [address] [address] [facility] [id number] [address] [place] [address] March, Diabetes mellitus E11.9 and Hypothyroid E03.9 [place] [address] [address] [place] [address] March, Diabetes mellitus E11.9 [place] [address] [address] [place] [address] March, Hypothyroid E03.9 and Elevat ed liver enzymes R74.8 [place] [id number] [address] [place] [address] March, Type 2 diabetes mellitus wit h [...] major depressive disorder, in partial remission F33.41 [place] [address] [address] Feb, Chronic pain G89.29 [place] [address] [address] Feb, Type 2 diabetes mellitus wit h hyperglycemia E11.65 and Skin lesion of scalp L98.[address] [address] Feb, [place] [address] [address] Jan, Type 2 diabetes mellitus wit h hyperglycemia E11.65 ; 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.4 ; Essential (primary) hypertension I10 ; Pulmonary emphysema, unspecified emphysema type J43.9 ; Chronic pain G89.29 ; Controlled substance agreement signed Z79.899 ; Hypothyroid E03.9 ; Neuropathy G62.9 ; Gastroesophageal reflux disease with esophagitis K21.0 ; Overactive bladder N32.81 ; Depression F32.9 and Irritable bowel syndrome with diarrhea K58.0 [place] [address] [id number] [address] [place] [address] Jan, [place] [address] [address] [facility] [id number] [address] [place] [address] Jan, Controlled substance agreeme nt signed Z79.899 [place] [id number] [facility] [id number] [address] [place] [address] 08 Dec, 2017 Type 2 diabetes mellitus [...] treatment Z91.19 and Overweight (BMI 25.0-29.9) E66.3 [place] [address] [address] [facility] [id number] [address] [place] [address] 02 Dec, 2017 Controlled substance agreeme nt signed Z79.899 [place] [address] [address] [facility] [id number] [address] [place] [address] Nov, Type 2 diabetes mellitus wit h hyperglycemia E11.65 and Current non- adherence to medical treatment Z91.19 [place] [address] [address] [facility] [id number] [address] [place] [address] Nov, [place] [address] [address] [facility] [id number] [address] [place] [address] Nov, Chronic pain G89.29 [place] [address] [address] [facility] [id number] [address] [place] [address] Nov, [place] [address] [address] [facility] [id number] [address] [place] [address] Nov, Hypothyroid E03.9 [place] [address] [address] [facility] [id number] [address] [place] [address] Nov, Hypothyroid E03.9 [id number] [facility] [id number] [address] [place] [address] Nov, Pulmonary emphysema, unspeci fied emphysema type J43.9 and Irritable bowel syndrome with diarrhea K58.0 [facility] [address] [facility] [id number] [address] [place] [address] Oct, [place] [address] [address] [place] [id number] [address] [place] [address] Oct, [place] [address] [address] [facility] [id number] [address] [place] [address] Oct, [place] [address] [address] [facility] [id number] [address] [place] [address] Oct, [place] [address] [address] [facility] [id number] [address] [place] [address] Oct, Chronic pain G89.29 [place] [address] [address] [place] [address] Oct, Diabetes mellitus E11.9 ; De pression F32.9 ; Mixed hyperlipidemia E78.2 ; Hypotension, unspecified hypotension type I95.9 ; Pulmonary emphysema, unspecified emphysema type J43.9 and Weight loss, unintentional R63.4 [place] [address] [address] [place] [id number] [address] [place] [address] Oct, Chronic pain G89.29 [place] [address] [address] [place] [id number] [address] [place] [address] Sep, Chronic pain G89.29 [place] [address] [address] [place] [id number] [address] [place] [address] Sep, Hypothyroid E03.9 and Diabet es mellitus E11.9 [place] [address] [address] [facility] [id number] [address] [place] [address] Aug, Type 2 diabetes mellitus wit h hyperglycemia E11.65 ; 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.4 ; Essential (primary) hypertension I10 ; Hypothyroid E03.9 ; Neuropathy G62.9 ; Chronic pain G89.29 ; Mixed hy perlipidemia E78.2 and Encounter for immunization Z23 [facility] [address] [place] [id number] [place] [address] Aug, Chronic pain G89.29 [facility] [address] [place] [id number] [place] [address] Aug, Overactive bladder N32.81 ; Diabetes mellitus E11.9 and Chronic pain G89.29 [facility] [address] [place] [id number] [address] [place] [address] Jul, [facility] [address] [place] [id number] [place] [address] Jun, [facility] [address] [place] [id number] [place] [address] Jun, [facility] [address] [address] Jun, Hypothyroid E03.9 [facility] [address] [place] [id number] [place] [address] Jun, Diabetes mellitus E11.9 ; Hy pothyroid E03.9 ; Neuropathy G62.9 ; Chronic pain G89.29 and Neck mass R22.1 [facility] [address] [address] Apr, [facility] [address] [place] [id number] [place] [address] Apr, Acute cystitis without hemat uria N30.00 [facility] [address] [place] [id number] [address] [place] [address] March, [facility] [address] [place] [id number] [place] [address] March, [facility] [address] [place] [id number] [place] [address] March, Near syncope R55 [facility] [address] [place] [id number] [address] [place] [address] Feb, [facility] [address] [place] [id number] [address] [place] [address] Feb, Chronic pain G89.29 [facility] [address] [place] [id number] [address] [place] [address] Feb, [facility] [address] [address] Feb, [facility] [address] [place] [id number] [address] [place] [address] Jan, Chronic pain G89.29 [facility] [address] [address] Jan, [facility] [address] [address] Jan, [facility] [address] [address] Jan, Diabetes mellitus E11.9 ; Hy pothyroid E03.9 ; GERD (gastroesophageal reflux disease) K21.9 ; Insomnia G47.00 ; Functional diarrhea K59.1 ; Neuropathy G62.9 ; Depression F32.9 ; Chronic pain G89.29 ; Irritable bowel syndrome with diarrhea K58.0 ; Overactive bladder N32.81 ; Mixed hyperlipidemia E78.2 and Bronchitis J40 [facility] [address] [place] [id number] [address] [place] [address] Dec, [facility] [address] [place] [id number] [address] [place] [address] Dec, [facility] [address] [address] Dec, [facility] [address] [place] [id number] [address] [place] [address] Dec, [facility] [address] [address] Dec, Chronic pain G89.29 [facility] [address] [facility] [id number] [address] [place] [address] Dec, [facility] [address] [place] [id number] [address] [place] [address] Dec, [facility] [address] [address] Dec, Type 2 diabetes mellitus wit h foot ulcer E11.621 [place] [place] [id number] [address] [place] [address] Dec, Type 2 diabetes mellitus wit h foot ulcer E11.621 [place] [address] [place] [id number] [address] [place] [address] Dec, HTN (hypertension) I10 ; Dep ression F32.9 ; Type 2 diabetes mellitus with foot ulcer E11.621 ; Functional diarrhea K59.1 ; Irritable bowel syndrome with diarrhea K58.0 ; Chronic pain G89.29 ; Insomnia G47.00 ; Overactive bladder N32.81 ; Mixed hyperlipidemia E78.2 ; Gastroesophageal reflux disease with esophagitis K21.0 and Acquired hypothyroidism E03.9 [place] [address] [place] [id number] [address] [place] [address] Nov, [place] [address] [address] [place] [id number] [address] [place] [address] Oct, [place] [address] [address] Oct, [place] [address] [place] [id number] [address] [place] [address] Oct, [place] [address] [address] Sep, Functional diarrhea K59.1 ; HTN (hypertension) I10 ; Diabetes mellitus E11.9 ; Depression F32.9 ; Overactive bladder N32.81 ; Mixed hyperlipidemia E78.2 ; Gastroesophageal reflux disease without esophagitis K21.9 ; Chronic pain G89.29 ; Insomnia G47.00 and Acquired hypothyroidism E03.9 [place] [address] [address] 04 Sep, 2016 [place] [address] [address] 11 Aug, 2016 Encounter for immunization Z 23 [place] [address] [address] 06 Aug, 2016 [place] [address] [address] Jul, [place] [address] [address] Jun, Type 2 diabetes mellitus wit hout complications E11.9 ; HTN (hypertension) I10 ; Hypothyroid E03.9 ; Neuropathy G62.9 ; Depression F32.9 ; Chronic pain G89.29 ; GERD (gastroesophageal reflux disease) K21.9 ; Insomnia G47.00 ; Overactive bladder N32.81 ; Mixed hyperlipidemia E78.2 ; Diarrhea of infectious origin A09 and Environmental allergies Z91.09 [place] [address] [address] Apr, [place] [address] [address] March, Hypothyroidism, unspecified E03.9 and Mixed hyperlipidemia E78.2 [place] [address] [address] March, Diabetes mellitus E11.9 ; HT N (hypertension) I10 ; Hypothyroid E03.9 ; Depression F32.9 ; Overactive bladder N32.81 ; Other chronic pain G89.29 ; Lumbago with sciatica, unspecified side M54.40 ; Environmental allergies Z91.09 and Gastroesophageal reflux disease, esophagitis presence not specified K21.9 [place] [address] [address] March, [place] [address] [address] Jan, HTN (hypertension) I10 ; Hyp othyroid E03.9 ; Neuropathy G62.9 ; Diabetes mellitus E11.9 ; Chronic pain G89.29 ; GERD (gastroesophageal reflux disease) K21.9 ; Overactive bladder N32.81 and Depression F32.9 [place] [address] [address] 12 Dec, 2015 Ear pain, left H92.02 ; HTN (hypertension) I10 ; Hypothyroid E03.9 ; Neuropathy G62.9 ; Diabetes mellitus E11.9 ; Depression F32.9 ; GERD (gastroesophageal reflux disease) K21.9 ; Insomnia G47.00 and Overactive bladder N32.81 [place] [address] [address] Nov, Overactive bladder N32.81 an d Chronic pain G89.29 [place] [address] [address] Nov, Kidney failure N19 [place] [address] [address] Nov, [place] [address] [address] Nov, [place] [address] [address] Nov, Diabetes mellitus E11.9 ; De pression F32.9 ; Chronic pain G89.29 ; GERD (gastroesophageal reflux disease) K21.9 ; Insomnia G47.00 ; HTN (hypertension) I10 ; Hypothyroid E03.9 ; COPD (chronic obstructive pulmonary disease) J44.9 ; Bladder incontinence R32 and Incontinence R32 [place] [address] [place] [id number] [address] [place] [address] Sep, Type 2 diabetes mellitus wit h foot ulcer E11.621 and Chromosomal abnormality, 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 [place] [address] [address] Sep, [place] [address] [address] Aug, [place] [address] [address] Aug, [place] [address] [address] Aug, HTN (hypertension) I10 ; Enc ounter for immunization Z23 ; Hypothyroid E03.9 ; Neuropathy G62.9 ; Diabetes mellitus E11.9 ; Depression F32.9 ; Chronic pain G89.29 ; GERD (gastroesophageal reflux disease) K21.9 ; Insomnia G47.00 and COPD (chronic obstructive pulmonary disease) J44.[address] [address] Jun, [place] [address] [address] Jun, [place] [address] [address] May, Essential hypertension, ivis gn 401.1 ; Unspecified hypothyroidism 244.9 ; Insomnia, unspecified 780.52 ; Shortness of breath 786.05 ; Depression 311 ; COPD (chronic obstructive pulmonary disease) 496 ; GERD (gastroesophageal reflux disease) 530.81 and Diabetes 1.5, 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 [place] [address] [address] May, [place] [address] [address] May, [place] [address] [address] May, Shortness of breath 786.05 ; Essential hypertension, benign 401.1 ; Diabetes mellitus 250.00 ; Hyperlipidemia 272.4 ; Hypothyroid 244.9 ; Insomnia 780.52 and Cough 786.2 [facility] [address] [id number] [address] [place] [address] Apr, [facility] [address] [id number] [address] [place] [address] March, Shortness of breath 786.05 ; Nausea with vomiting 787.01 ; Essential hypertension, benign 401.1 ; Diabetes mellitus 250.00 ; Hyperlipidemia 272.4 and Hypothyroid 244.9 [facility] [address] [id number] [address] [place] [address] Feb, [facility] [address] [id number] [address] [place] [address] Feb, [facility] [address] [facility] [id number] [address] [place] [address] Jan, [facility] [address] [facility] [id number] [address] [place] [address] Jan, [facility] [address] [facility] [id number] [address] [place] [address] Jan, [facility] [address] [id number] [address] [place] [address] Jan, [facility] [address] [facility] [id number] [address] [place] [address] Jan, [facility] [address] [facility] [id number] [address] [place] [id number] Jan, [facility] [address] [id number] [address] [place] [id number] Jan, [facility] [address] [id number] [address] [place] [id number] Jan, [facility] [address] [facility] [id number] [address] [place] [id number] Jan, [facility] [address] [facility] [id number] [address] [place] [id number] Jan, [facility] [address] [id number] [address] [place] [address], [place] [id number] Dec, 2014 [facility] [address] [id number] [address] [place] [address], [place] [id number] Dec, 2014 [facility] [address] [id number] [address] [place] [address], [place] [id number] Dec, 2014 [facility] [address] [id number] [address] [place] [address], [place] [id number] Dec, 2014 [facility] [address] [id number] [address] [place] [address], [place] [id number] Dec, 2014 [facility] [address] [id number] [address] [place] [address], [place] [id number] Dec, 2014 [facility] [address] [id number] [address] [place] [address], [place] [id number] Dec, 2014 [facility] [address] [id number] [address] [place] [address], [place] [id number] Dec, 2014 [facility] [facility] [address] [id number] [address] [place] [address], [place] [address] Dec, 2014 [facility] [address] [id number] [address] [place] [address], [place] [address] Dec, 2014 [facility] [address] [id number] [address] [place] [address], [place] [address] Oct, [facility] [address] [id number] [address] [place] [address] Oct, [facility] [address] [id number] [address] [place] [address], [place] [address] Oct, [facility] [address] [id number] [address] [place] [address], [place] [address] Oct, [facility] [address] [id number] [address] [place] [address] Oct, [facility] [address] [id number] [address] [place] [address], [place] [address] 08 Oct, 2014 [facility] [address] [id number] [address] [place] [address], [place] [address] 05 Oct, 2014 [facility] [address] [id number] [address] [place] [address], [place] [address] 05 Oct, 2014 [facility] [address] [id number] [address] [place] [address], [place] [address] Oct, [facility] [address] [id number] [address] [place] [address], [place] [address] Oct, [facility] [address] [id number] [address] [place] [address], [place] [address] Oct, [facility] [address] [id number] [address] [place] [address], [place] [address] Oct, [facility] [address] [id number] [address] [place] [address], [place] [address] Oct, [facility] [address] [id number] [address] [place] [address], [place] [address] Oct, [facility] [address] [id number] [address] [place] [address], [place] [address] Sep, [facility] [address] [id number] [address] [place] [address], [place] [address] Sep, [facility] [address] [id number] [address] [place] [address], [place] [address] Sep, [facility] [address] [id number] [address] [place] [address], [place] [address] Sep, [facility] [address] [id number] [address] [place] [address], [place] [address] Sep, [facility] [address] [id number] [address] [place] [address], [place] [address] Sep, [facility] [address] [id number] [address] [place] [address], [place] [address] Sep, [facility] [address] [id number] [address] [place] [address], [place] [address] Sep, [facility] [address] [id number] [address] [place] [address], [place] [address] Sep, [facility] [address] [id number] [address] [place] [address], [place] [address] Aug, [facility] [address] [id number] [address] [place] [address], [place] [address] Aug, [facility] [address] [id number] [address] [place] [address], [place] [address] Aug, [facility] [address] [id number] [address] [place] [address], [place] [address] 17 Aug, 2014 [facility] [address] [id number] [address] [place] [address], [place] [address] 16 Aug, 2014 [facility] [address] [id number] [address] [place] [address], [place] [address] Aug, [facility] [address] [id number] [address] [place] [address], [place] [address] Aug, [facility] [address] [id number] [address] [place] [address], [place] [address] Aug, [facility] [address] [id number] [address] [place] [address], [place] [address] Aug, [facility] [address] [id number] [address] [place] [address], [place] [address] 29 Jul, 2014 [facility] [address] [id number] [address] [place] [address], [place] [address] 29 Jul, 2014 [facility] [address] [id number] [address] [place] [address], [place] [address] 25 Jul, 2014 [facility] [address] [id number] [address] [place] [address], [place] [address] 25 Jul, 2014 [facility] [address] [id number] [address] [place] [address], [place] [address] Jul, [facility] [address] [id number] [facility] [place] [place] [address] Jul, [facility] [address] [id number] [facility] [place] [address] Jul, [facility] [address] [id number] [facility] [place] [place] [address] Jul, [facility] [address] [id number] [address] [place] [address], [place] [address] Jul, [facility] [address] [id number] [address] [place] [address], [place] [address] Jul, [facility] [address] [id number] [address] [place] [address], [place] [address] Jun, [facility] [address] [id number] [address] [place] [address], [place] [address] Jun, [facility] [address] [id number] [address] [place] [address], [place] [address] Jun, [facility] [address] [id number] [address] [place] [address], [place] [address] Jun, [facility] [address] [id number] [address] [place] [address], [place] [address] Jun, [facility] [address] [id number] [address] [place] [address], [place] [address] Jun, [facility] [address] [id number] [address] [place] [address], [place] [address] Jun, [facility] [address] [id number] [address] [place] [address], [place] [address] Jun, [facility] [address] [id number] [address] [place] [address], [place] [address] Jun, [facility] [address] [id number] [address] [place] [address], [place] [address] Jun, [facility] [address] [id number] [address] [place] [address], [place] [address] Jun, [facility] [address] [id number] [address] [place] [address], [place] [address] Jun, [facility] [address] [id number] [address] [place] [address], [place] [address] May, [facility] [address] [id number] [address] [place] [address], [place] [address] May, [facility] [address] [id number] [address] [place] [address], [place] [address] May, [facility] [address] [id number] [address] [place] [address], [place] [address] May, [facility] [address] [id number] [address] [place] [address], [place] [address] May, [facility] [address] [id number] [address] [place] [address], [place] [address] May, [facility] [address] [id number] [address] [place] [address], [place] [address] March, [facility] [address] [id number] [address] [place] [address], [place] [address] March, [facility] [address] [id number] [address] [place] [address], [place] [address] March, [facility] [address] [id number] [address] [place] [address], [place] [address] March, [facility] [address] [id number] [address] [place] [address], [place] [address] March, [facility] [address] [id number] [address] [place] [address], [place] [address] March, [facility] [address] [id number] [address] [place] [address], [place] [address] Feb, [facility] [address] [id number] [address] [place] [address], [place] [address] Feb, [facility] [address] [id number] [facility] [place] [place] [address] Feb, [facility] [address] [id number] [facility] [place] [address] Feb, [facility] [address] [id number] [facility] [place] [place] [address] Jan, [facility] [address] [id number] [address] [place] [address], [place] [address] Jan, [facility] [address] [id number] [address] [place] [address], [place] [address] Jan, [facility] [address] [id number] [address] [place] [address], [place] [address] Jan, [facility] [address] [id number] [address] [place] [address], [place] [address] Jan, [facility] [address] [id number] [address] [place] [address], [place] [address] Jan, [facility] [address] [id number] [address] [place] [address], [place] [address] Jan, [facility] [address] [id number] [address] [place] [address], [place] [address] Jan, [facility] [address] [id number] [address] [place] [address], [place] [address] Jan, [facility] [address] [id number] [address] [place] [address], [place] [address] Jan, [facility] [address] [id number] [address] [place] [address], [place] [address] Jan, [facility] [address] [id number] [address] [place] [address], [place] [address] Jan, [facility] [address] [id number] [address] [place] [address], [place] [address] Dec, [facility] [address] [id number] [address] [place] [address], [place] [address] Dec, [facility] [address] [id number] [address] [place] [address], [place] [address] Dec, [facility] [address] [id number] [address] [place] [address], [place] [address] Dec, [facility] [address] [id number] [address] [place] [address], [place] [address] Dec, [facility] [address] [id number] [address] [place] [address], [place] [address] Dec, [facility] [address] [id number] [address] [place] [address], [place] [address] Nov, [facility] [address] [id number] [address] [place] [address], [place] [address] Nov, [facility] [address] [id number] [address] [place] [address], [place] [address] Oct, [facility] [address] [id number] [address] [place] [address], [place] [address] Oct, [facility] [address] [id number] [address] [place] [address], [place] [address] Oct, [facility] [address] [id number] [address] [place] [address], [place] [address] Oct, [facility] [address] [id number] [address] [place] [address], [place] [address] Oct, [facility] [address] [id number] [address] [place] [address], [place] [address] Oct, [facility] [address] [id number] [address] [place] [address], [place] [address] Sep, [facility] [address] [id number] [address] [place] [address], [place] [address] Sep, [facility] [address] [id number] [address] [place] [address], [place] [address] Sep, [facility] [address] [id number] [address] [place] [address], [place] [address] Sep, [facility] [address] [id number] [address] [place] [address], [place] [address] Aug, [facility] [address] [id number] [address] [place] [address], [place] [address] Aug, [facility] [address] [id number] [address] [place] [address], [place] [address] Aug, [facility] [address] [id number] [address] [place] [address], [place] [address] 17 Jul, 2013 [facility] [address] [id number] [address] [place] [address], [place] [address] 14 Jul, 2013 [facility] [address] [id number] [address] [place] [address], [place] [address] Jul, [facility] [address] [id number] [address] [place] [address], [place] [address] Jun, [facility] [address] [id number] [address] [place] [address], [place] [address] Jun, [facility] [address] [id number] [address] [place] [address], [place] [address] Jun, [facility] [address] [id number] [address] [place] [address], [place] [address] Apr, [facility] [address] [id number] [address] [place] [address], [place] [address] Apr, [facility] [address] [id number] [address] [place] [address], [place] [address] March, [facility] [address] [id number] [address] [place] [address], [place] [address] March, [facility] [address] [id number] [address] [place] [address], [place] [address] March, [facility] [address] [id number] [address] [place] [address], [place] [address] March, [facility] [address] [id number] [address] [place] [address], [place] [address] Feb, [facility] [address] [id number] [address] [place] [address], [place] [address] Jan, [facility] [address] [id number] [address] [place] [address], [place] [address] 13 Dec, 2012 [facility] [address] [id number] [address] [place] [address], [place] [address] 08 Dec, 2012 [facility] [address] [id number] [address] [place] [address], [place] [address] Dec, [facility] [address] [id number] [address] [place] [address], [place] [address] Nov, [facility] [address] [id number] [address] [place] [address], [place] [address] Oct, [facility] [address] [id number] [address] [place] [address], [place] [address] Oct, [facility] [address] [id number] [address] [place] [address], [place] [address] Sep, [facility] [address] [id number] [address] [place] [address], [place] [address] Sep, [facility] [address] [id number] [address] [place] [address], [place] [address] Sep, [facility] [address] [id number] [address] [place] [address], [place] [address] Sep, [facility] [address] [id number] [address] [place] [address], [place] [address] Sep, [facility] [address] [id number] [address] [place] [address], [place] [address] Sep, [facility] [address] [id number] [address] [place] [address], [place] [address] Sep, [facility] [address] [id number] [address] [place] [address], [place] [address] 16 Aug, 2012 [facility] [address] [id number] [address] [place] [address], [place] [address] 16 Aug, 2012 [facility] [address] [id number] [address] [place] [address], [place] [address] 10 Aug, 2012 [facility] [address] [id number] [address] [place] [address], [place] [address] 10 Aug, 2012 [facility] [address] [id number] [address] [place] [address], [place] [address] 08 Aug, 2012 [facility] [address] [id number] [address] [place] [address], [place] [address] Aug, [facility] [address] [id number] [address] [place] [address], [place] [address] Aug, [facility] [address] [id number] [address] [place] [address], [place] [address] Aug, [facility] [address] [id number] [address] [place] [address], [place] [address] Jul, [facility] [address] [id number] [address] [place] [address], [place] [address] Jul, [facility] [address] [id number] [address] [place] [address], [place] [address] Jun, [facility] [address] [id number] [address] [place] [address], [place] [address] May, [facility] [address] [id number] [address] [place] [address], [place] [address] Apr, [facility] [address] [id number] [address] [place] [address], [place] [address] Apr, [facility] [address] [id number] [address] [place] [address], [place] [address] Apr, [facility] [address] [id number] [address] [place] [address], [place] [address] March, [facility] [address] [id number] [address] [place] [address], [place] [address] March, [facility] [address] [id number] [address] [place] [address], [place] [address] March, [facility] [address] [id number] [address] [place] [address], [place] [address] March, [facility] [address] [id number] [address] [place] [address], [place] [address] March, [facility] [address] [id number] [address] [place] [address], [place] [address] March, [facility] [address] [id number] [address] [place] [address], [place] [address] March, [facility] [address] [id number] [address] [place] [address], [place] [address] Jan, [facility] [address] [id number] [address] [place] [address], [place] [address] Jan, [facility] [address] [id number] [address] [place] [address], [place] [address] Jan, [facility] [address] [id number] [address] [place] [address], [place] [address] Jan, [facility] [address] [id number] [address] [place] [address], [place] [address] Jan, [facility] [address] [id number] [address] [place] [address], [place] [address] Dec, [facility] [address] [id number] [address] [place] [address], [place] [address] Dec, [facility] [address] [id number] [address] [place] [address], [place] [address] Nov, [facility] [address] [id number] [address] [place] [address], [place] [address] Nov, [facility] [address] [id number] [address] [place] [address], [place] [address] 06 Nov, 2011 [facility] [address] [id number] [address] [place] [address], [place] [address] Nov, [facility] [address] [id number] [address] [place] [address], [place] [address] Oct, [facility] [address] [id number] [address] [place] [address], [place] [address] Oct, [facility] [address] [id number] [address] [place] [address], [place] [address] 14 Sep, 2011 [facility] [address] [id number] [address] [place] [address], [place] [address] Sep, [facility] [address] [id number] [address] [place] [address], [place] [address] Sep, [facility] [address] [id number] [address] [place] [address], [place] [address] May, [facility] [address] [id number] [address] [place] [address], [place] [address] Nov, [facility] [address] [id number] [address] [place] [address], [place] [address] Oct, [facility] [address] [id number] [address] [place] [address], [place] [address] Oct, [facility] [address] [id number] [address] [place] [address], [place] [address] Oct, [facility] [address] [id number] [address] [place] [address], [place] [address] 15 Sep, 2010 [facility] [address] [id number] [address] [place] [address], [place] [address] Sep, [facility] [address] [id number] [address] [place] [address], [place] [address] Aug, [facility] [address] [id number] [address] [place] [address], [place] [address] March, [facility] [address] [id number] [address] [place] [address] Oct, [facility] [address] [id number] [address] [place] [address] Oct, [facility] [address] [id number] [address] [place] [address] Oct, [facility] [address] [id number] [address] [place] [address] Oct, [facility] [address] [id number] [address] [place] [address] Sep, [facility] [address] [id number] [address] [place] [address] Sep, [facility] [address] [id number] [address] [place] [address] Sep, [facility] [address] [id number] [address] [place] [address] Aug, [facility] [address] [id number] [address] [place] [address] Aug, [facility] [address] [id number] [address] [place] [address] Aug, [facility] [address] [id number] [address] [place] [id number] Jan, IMMUNIZATIONS No Known Immunizations SOCIAL HISTORY [...]
--- OUTSIDE RECORDS SUMMARY | 2020-06-13 16:46 | XMS REPORT ---
Author Author Jah Durant Doctor Organization [facility] Address Unknown Phone Unavailable Care Team Providers Care Inspector Plug Seam Name Role Phone Migration, Doctor Unavailable Unavailable PROBLEMS Type Condition ICD9-CM Code ATW82-SE Code Onset Dates Condition S tatus SNOMED Code Problem Neuropathy G62.9 Active 631782792 Problem Chronic pain G89.29 Active 0851059 1 Problem Overactive bladder N32.81 Active 2 98997608 Problem Hypothyroid E03.9 Active 87999272 Problem Irritable bowel syndrome with diarrhea K58.0 Active 966337201 Problem residential current use of insulin Z79.4 Active 078149627 Problem Type 2 diabetes mellitus with hyperglycemia E11.65 Active 84936795 Problem Chronic obstructive pulmonary disease, unspecified COPD ty pe J44.9 Active 54133593 Problem Gastroesophageal reflux disease with esophagitis K 21.0 Active 395860065 Problem Major depressive disorder, recurrent, in full remission F33.42 Active 11383736 Problem Mixed hyperlipidemia E78.2 Active 851698092 Problem Essential (primary) hypertension I10 Active 63822218 Problem Anxiety disorder, unspecified type F41.9 Active 155095584 Problem Gastroparesis K31.84 Active 714721 006 Problem 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 Active 780075858 ALLERGIES No Information ENCOUNTERS Encounter Location Date Diagnosis [facility] [address] [facility] [place] [id number] [address] [place] [address] Jun, Neuropathy G62.9 [facility] [address] [facility] [place] [id number] [address] [place] [phone] 06 Jun, 2019 Encounter for Medicare [email or web address] wellness exam Z00.00 ; Type 2 diabetes mellitus with hyperglycemia E11.65 ; Mixed hyperlipidemia E78.2 ; Hypothyroid E03.9 ; Gastroesophageal reflux disease with esophagitis K21.0 ; Essential (primary) hypertension I10 ; Major depressive disorder, recurrent, in full remission F33.42 ; Chronic obstructive pulmonary disease, unspecified COPD type J44.9 ; Neuropathy G62.9 and Encounter for immunization Z23 [facility] [address] [facility] [place] [id number] [address] [place] [address] Jun, Irritable bowel syndrome wit diarrhea K58.0 [facility] [address] [id number] [address] [place] [address] May, Chronic pain G89.29 [facility] [address] [id number] [address] [place] [address] May, Type 2 diabetes mellitus wit h hyperglycemia E11.[address] [facility] [address] [id number] [address] [place] [address] May, Chronic pain G89.29 [facility] [address] [facility] [place] [id number] [address] [place] [address] Apr, Poison maryam dermatitis L23.7 [facility] [address] [id number] [address] [place] [address] Apr, Chronic pain G89.29 [facility] [address] [id number] [address] [place] [address] March, Type 2 diabetes mellitus wit h hyperglycemia E11.65 [facility] [address] [facility] [place] [id number] [address] [place] [phone] March, Chronic pain G89.29 [facility] [address] [id number] [address] [place] [address] March, [address] [address] Feb, [facility] [address] [id number] [address] [place] [address] Feb, Other chronic pain G89.29 an d Chronic pain G89.29 [facility] [address] [facility] [place] [id number] [address] [place] [address] Jan, Mixed hyperlipidemia E78.2 [facility] [address] [facility] [place] [id number] [address] [place] [address] Jan, Chronic pain G89.29 [facility] [address] [facility] [id number] [address] [place] [address] Jan, Type 2 diabetes mellitus wit h hyperglycemia E11.65 ; Mixed hyperlipidemia E78.2 ; residential current use of insulin Z79.4 ; Acquired hypothyroidism E03.9 and Essential (primary) hypertension I10 [facility] [place] [address] [place] [address] 11 Dec, 2018 Chronic pain G89.29 [facility] [place] [address] [place] [id number] [address] [place] [address] Nov, Chronic pain G89.29 [facility] [place] [address] [place] [id number] [address] [place] [address] Nov, [facility] [address] [address] Oct, Chronic pain G89.29 [facility] [place] [address] [place] [address] Oct, [facility] [address] [place] [id number] [address] [place] [address] Sep, [facility] [address] [place] [id number] [address] [place] [address] Sep, Type 2 diabetes mellitus wit h hyperglycemia E11.65 [facility] [address] [place] [address] 16 Sep, 2018 Chronic pain G89.29 [facility] [place] [address] [place] [id number] [address] [place] [address] Sep, [facility] [address] [address] Sep, Type 2 diabetes mellitus wit h hyperglycemia E11.65 ; Irritable bowel syndrome with diarrhea K58.0 ; Gastroparesis K31.84 ; 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 and Dermatitis L30.9 [facility] [address] [facility] [id number] [address] [place] [address] Aug, Chronic pain G89.29 [facility] [place] [address] [facility] [place] [id number] [address] [place] [id number] 24 Jul, 2018 Chronic pain G89.29 [facility] [place] [address] [facility] [id number] [address] [place] [address] Jun, Type 2 diabetes mellitus wit h hyperglycemia E11.65 ; Neuropathy G62.9 ; Recurrent major depressive disorder, in partial remission F33.41 ; Chronic pain G89.29 and Hypertriglyceridemia E78.1 [facility] [place] [address] [facility] [place] [id number] [address] [place] [address] Jun, Hypothyroid E03.9 [facility] [place] [address] [facility] [place] [id number] [address] [place] [address] Jun, Major depressive disorder, r ecurrent episode, moderate F33.1 and Anxiety disorder, unspecified type F41.9 [facility] [place] [address] [facility] [id number] [address] [place] [address] Jun, [facility] [address] [facility] [id number] [address] [place] [address] Jun, Type 2 diabetes mellitus wit h hyperglycemia E11.65 ; residential current use of insulin Z79.4 ; Recurrent major depressive disorder, in partial remission F33.41 ; Hypothyroid E03.9 ; Candidal dermatitis B37.2 and Weakness generalized R53.1 [place] [address] [facility] [id number] [address] [place] [address] May, [facility] [address] [facility] [place] [id number] [address] [place] [address] May, [facility] [place] [address] [facility] [facility] [id number] [address] [place] [address] May, [facility] [place] [address] [facility] [facility] [id number] [address] [place] [address] May, Generalized abdominal pain R 10.84 and Candidal dermatitis B37.2 [facility] [address] [id number] [address] [place] [phone] May, [facility] [address] [id number] [address] [place] [address] May, [facility] [address] [facility] [id number] [address] [place] [address] May, Nodular radiologic density R 93.8 ; Weight loss, unintentional R63.4 and Pulmonary emphysema, unspecified emphysema type J43.9 [facility] [address] [facility] [place] [id number] [address] [place] [address] May, Chronic pain G89.29 [facility] [place] [address] [facility] [facility] [id number] [address] [place] [address] May, Syncope and collapse R55 ; C hronic fatigue R53.[address] lung screening R91.8 [facility] [place] [address] [facility] [id number] [address] [place] [address] May, [facility] [address] [facility] [place] [id number] [address] [place] [address] Apr, Chronic fatigue R53.82 ; Abn ormal chest CT R93.8 ; Elevated erythrocyte sedimentation rate R70.0 ; Hypothyroid E03.9 and Recurrent major depressive disorder, in partial remission F33.41 [facility] [place] [address] [facility] [facility] [id number] [address] [place] [address] Apr, Hypothyroid E03.9 [facility] [address] [id number] [address] [place] [address] Apr, Depression F32.9 [facility] [place] [address] [facility] [place] [id number] [address] [place] [address] Apr, [facility] [address] [facility] [place] [id number] [address] [place] [address] March, [facility] [address] [facility] [place] [id number] [address] [place] [phone] March, Hypothyroid E03.9 [facility] [address] [facility] [place] [id number] [address] [place] [address] March, Diabetes mellitus E11.[address] [facility] [address] [facility] [facility] [id number] [address] [place] [address] March, Diabetes mellitus E11.9 [place] [address] [facility] [id number] [address] [place] [address] March, Hypothyroid E03.9 and Elevat ed liver enzymes R74.8 [facility] [address] [facility] [id number] [address] [place] [address] March, Type 2 diabetes mellitus wit h [...] major depressive disorder, in partial remission F33.41 [facility] [address] [facility] [id number] [address] [place] [address] Feb, Chronic pain G89.29 [facility] [place] [address] [facility] [id number] [address] [place] [phone] Feb, Type 2 diabetes mellitus wit h hyperglycemia E11.65 and Skin lesion of scalp L98.9 [facility] [address] [facility] [place] [id number] [address] [place] [phone] Feb, [facility] [address] [facility] [place] [id number] [address] [place] [address] Jan, Type 2 diabetes mellitus wit h [...] and Irritable bowel syndrome with diarrhea K58.0 [facility] [address] [id number] [address] [place] [phone] Jan, [facility] [address] [id number] [address] [place] [address] Jan, Controlled substance agreeme nt signed Z79.899 [facility] [address] [id number] [address] [place] [phone] Dec, Type 2 diabetes mellitus wit h [...] treatment Z91.19 and Overweight (BMI 25.0-29.9) E66.3 [facility] [place] [address] [id number] [address] [place] [phone] 02 Dec, 2017 Controlled substance agreeme nt signed Z79.899 [place] [address] [facility] [facility] [id number] [address] [place] [address] Nov, Type 2 diabetes mellitus wit h hyperglycemia E11.65 and Current non- adherence to medical treatment Z91.19 [facility] [facility] [address] [id number] [address] [place] [phone] Nov, [facility] [address] [id number] [address] [place] [address] Nov, Chronic pain G89.29 [facility] [address] [id number] [address] [place] [address] Nov, [place] [address] [facility] [facility] [id number] [address] [place] [address] Nov, Hypothyroid E03.9 [facility] [address] [id number] [address] [place] [address] Nov, Hypothyroid E03.9 [facility] [address] [facility] [place] [id number] [address] [place] [address] Nov, Pulmonary emphysema, unspeci fied emphysema type J43.9 and Irritable bowel syndrome with diarrhea K58.0 [facility] [address] [facility] [place] [id number] [address] [place] [phone] Oct, [facility] [address] [facility] [place] [id number] [address] [place] [address] Oct, [facility] [address] [facility] [id number] [address] [place] [phone] Oct, [facility] [address] [facility] [place] [id number] [address] [place] [address] Oct, [facility] [address] [facility] [place] [id number] [address] [place] [phone] Oct, Chronic pain G89.29 [place] [address] [facility] [place] [id number] [address] [place] [address] Oct, Diabetes mellitus E11.9 ; De pression F32.9 ; Mixed hyperlipidemia E78.2 ; Hypotension, unspecified hypotension type I95.9 ; Pulmonary emphysema, unspecified emphysema type J43.9 and Weight loss, unintentional R63.4 [facility] [address] [facility] [id number] [address] [place] [address] Oct, Chronic pain G89.29 [facility] [address] [facility] [place] [id number] [address] [place] [address] Sep, Chronic pain G89.29 [place] [address] [facility] [place] [id number] [address] [place] [address] Sep, Hypothyroid E03.9 and Diabet es mellitus E11.9 [facility] [address] [facility] [place] [id number] [address] [place] [address] Aug, Type 2 diabetes mellitus wit h hyperglycemia E11.65 ; residential current use of insulin Z79.4 ; Essential (primary) hypertension I10 ; Hypothyroid E03.9 ; Neuropathy G62.9 ; Chronic pain G89.29 ; Mixed hy perlipidemia E78.2 and Encounter for immunization Z23 [facility] [address] [facility] [place] [id number] [address] [place] [address] Aug, Chronic pain G89.29 [facility] [address] [facility] [id number] [address] [place] [address] Aug, Overactive bladder N32.81 ; Diabetes mellitus E11.9 and Chronic pain G89.29 [facility] [address] [place] [id number] [address] [place] [address] Jul, [facility] [address] [place] [id number] [address] [place] [address] Jun, [facility] [address] [place] [id number] [address] [place] [address] Jun, [facility] [address] [place] [id number] [address] [place] [address] Jun, Hypothyroid E03.9 [facility] [address] [place] [id number] [address] [place] [address] Jun, Diabetes mellitus E11.9 ; Hy pothyroid E03.9 ; Neuropathy G62.9 ; Chronic pain G89.29 and Neck mass R22.1 [facility] [address] [facility] [id number] [address] [place] [address] Apr, [facility] [address] [place] [id number] [address] [place] [address] Apr, Acute cystitis without hemat uria N30.00 [facility] [address] [facility] [place] [id number] [address] [place] [address] March, [facility] [address] [place] [id number] [address] [place] [address] March, [facility] [address] [place] [phone] 15 Mar, [address] [facility] [address] [place] [id number] [address] [place] [address] Feb, [facility] [address] [facility] [id number] [address] [place] [address] Feb, Chronic pain G89.29 [facility] [address] [place] [id number] [address] [place] [address] Feb, [facility] [address] [place] [id number] [address] [place] [phone] Feb, [facility] [address] [place] [id number] [address] [place] [address] Jan, Chronic pain G89.29 [facility] [address] [place] [id number] [address] [place] [address] Jan, [facility] [address] [place] [id number] [address] [place] [address] Jan, 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 [address] [place] [address] Dec, [facility] [address] [place] [id number] [address] [place] [address] Dec, [facility] [address] [place] [id number] [address] [place] [id number] Dec, [facility] [address] [place] [id number] [address] [place] [phone] Dec, [facility] [address] [facility] [id number] [address] [place] [address] Dec, Chronic pain G89.29 [facility] [address] [facility] [id number] [address] [place] [address] Dec, [facility] [address] [place] [id number] [address] [place] [address] Dec, [facility] [address] [place] [id number] [address] [place] [address] Dec, Type 2 diabetes mellitus wit h foot ulcer E11.621 [place] [address] [place] [id number] [address] [place] [address] 17 Dec, 2016 Type 2 diabetes mellitus wit h foot ulcer E11.621 [place] [address] [place] [id number] [address] [place] [address] 14 Dec, 2016 HTN (hypertension) I10 ; Dep ression F32.9 ; Type 2 diabetes mellitus with foot ulcer E11.621 ; Functional diarrhea K59.1 ; Irritable bowel syndrome with diarrhea K58.0 ; Chronic pain G89.29 ; Insomnia G47.00 ; Overactive bladder N32.81 ; Mixed hyperlipidemia E78.2 ; Gastroesophageal reflux disease with esophagitis K21.0 and Acquired hypothyroidism E03.9 [place] [address] [place] [address] Nov, [facility] [address] [place] [address] Oct, [facility] [address] [place] [id number] [address] [place] [address] Oct, [facility] [address] [place] [id number] [address] [place] [address] Oct, [facility] [address] [place] [id number] [address] [place] [address] Sep, Functional diarrhea K59.1 ; HTN (hypertension) I10 ; Diabetes mellitus E11.9 ; Depression F32.9 ; Overactive bladder N32.81 ; Mixed hyperlipidemia E78.2 ; Gastroesophageal reflux disease without esophagitis K21.9 ; Chronic pain G89.29 ; Insomnia G47.00 and Acquired hypothyroidism E03.9 [place] [address] [address] Sep, [place] [address] [address] Aug, Encounter for immunization Z 23 [place] [address] [address] Aug, [place] [address] [address] Jul, [place] [address] [address] Jun, Type 2 diabetes mellitus wit hout complications E11.9 ; HTN (hypertension) I10 ; Hypothyroid E03.9 ; Neuropathy G62.9 ; Depression F32.9 ; Chronic pain G89.29 ; GERD (gastroesophageal reflux disease) K21.9 ; Insomnia G47.00 ; Overactive bladder N32.81 ; Mixed hyperlipidemia E78.2 ; Diarrhea of infectious origin A09 and Environmental allergies Z91.09 [place] [address] [address] Apr, [facility] [place] [address] [place] [id number] [place] [address] March, Hypothyroidism, unspecified E03.9 and Mixed hyperlipidemia E78.2 [place] [address] [address] March, Diabetes mellitus E11.9 ; HT N (hypertension) I10 ; Hypothyroid E03.9 ; Depression F32.9 ; Overactive bladder N32.81 ; Other chronic pain G89.29 ; Lumbago with sciatica, unspecified side M54.40 ; Environmental allergies Z91.09 and Gastroesophageal reflux disease, esophagitis presence not specified K21.9 [place] [address] [address] March, [place] [address] [address] Jan, HTN (hypertension) I10 ; Hyp othyroid E03.9 ; Neuropathy G62.9 ; Diabetes mellitus E11.9 ; Chronic pain G89.29 ; GERD (gastroesophageal reflux disease) K21.9 ; Overactive bladder N32.81 and Depression F32.9 [place] [address] [address] 12 Dec, 2015 Ear pain, left H92.02 ; HTN (hypertension) I10 ; Hypothyroid E03.9 ; Neuropathy G62.9 ; Diabetes mellitus E11.9 ; Depression F32.9 ; GERD (gastroesophageal reflux disease) K21.9 ; Insomnia G47.00 and Overactive bladder N32.81 [place] [address] [address] Nov, Overactive bladder N32.81 an d Chronic pain G89.29 [place] [address] [address] Nov, Kidney failure N19 [place] [address] [address] Nov, [place] [address] [address] Nov, [place] [address] [address] Nov, Diabetes mellitus E11.9 ; De pression F32.9 ; Chronic pain G89.29 ; GERD (gastroesophageal reflux disease) K21.9 ; Insomnia G47.00 ; HTN (hypertension) I10 ; Hypothyroid E03.9 ; COPD (chronic obstructive pulmonary disease) J44.9 ; Bladder incontinence R32 and Incontinence R32 [place] [address] [address] Sep, Type 2 diabetes mellitus wit h foot ulcer E11.621 and Chromosomal abnormality, 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 [place] [address] [address] Sep, [place] [address] [address] Aug, [address] [address] Aug, [place] [address] [address] Aug, HTN (hypertension) I10 ; Enc ounter for immunization Z23 ; Hypothyroid E03.9 ; Neuropathy G62.9 ; Diabetes mellitus E11.9 ; Depression F32.9 ; Chronic pain G89.29 ; GERD (gastroesophageal reflux disease) K21.9 ; Insomnia G47.00 and COPD (chronic obstructive pulmonary disease) J44.[address] [address] Jun, [address] [address] Jun, [address] [address] May, Essential hypertension, ivis gn 401.1 ; Unspecified hypothyroidism 244.9 ; Insomnia, unspecified 780.52 ; Shortness of breath 786.05 ; Depression 311 ; COPD (chronic obstructive pulmonary disease) 496 ; GERD (gastroesophageal reflux disease) 530.81 and Diabetes 1.5, 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 [address] May, [address] [address] May, [address] [address] May, Shortness of breath 786.05 ; Essential hypertension, benign 401.1 ; Diabetes mellitus 250.00 ; Hyperlipidemia 272.4 ; Hypothyroid 244.9 ; Insomnia [address] [facility] [address] [id number] [address] [place] [id number] Apr, [facility] [address] [facility] [place] [id number] [address] [place] [id number] March, Shortness of breath 786.05 ; Nausea with vomiting 787.01 ; Essential hypertension, benign 401.1 ; Diabetes mellitus 250.00 ; Hyperlipidemia 272.4 and Hypothyroid [address] [facility] [address] [id number] [address] [place] [id number] Feb, [facility] [address] [id number] [address] [place] [id number] Feb, [facility] [address] [facility] [place] [id number] [address] [place] [id number] Jan, [facility] [address] [id number] [address] [place] [id number] Jan, [facility] [address] [facility] [place] [id number] [address] [place] [id number] Jan, [facility] [address] [facility] [place] [id number] [address] [place] [id number] Jan, [facility] [address] [facility] [place] [id number] [address] [place] [id number] Jan, [facility] [address] [id number] [address] [place] [id number] Jan, [facility] [address] [id number] [address] [place] [id number] Jan, [facility] [address] [facility] [id number] [address] [place] [id number] Jan, [facility] [address] [facility] [place] [id number] [address] [place] [id number] Jan, [facility] [address] [id number] [address] [place] [address], [place] [address] Jan, [facility] [address] [id number] [address] [place] [address], [place] [address] Dec, 2014 [facility] [address] [id number] [address] [place] [address], [place] [address] Dec, 2014 [facility] [address] [id number] [address] [place] [address], [place] [address] Dec, 2014 [facility] [address] [id number] [address] [place] [address], [place] [address] Dec, 2014 [facility] [address] [id number] [address] [place] [address], [place] [address] Dec, 2014 [facility] [address] [id number] [address] [place] [address], [place] [address] Dec, 2014 [facility] [address] [id number] [address] [place] [address], [place] [address] Dec, 2014 [facility] [address] [id number] [address] [place] [address], [place] [address] Dec, 2014 [facility] [address] [id number] [address] [place] [address], [place] [address] Dec, 2014 [facility] [address] [id number] [address] [place] [address], [place] [address] Dec, 2014 [facility] [address] [id number] [address] [place] [address], [place] [address] Oct, [facility] [address] [id number] [address] [place] [address], [place] [address] Oct, [facility] [address] [id number] [address] [place] [address], [place] [address] Oct, [facility] [address] [id number] [address] [place] [address], [place] [address] Oct, [facility] [address] [id number] [address] [place] [address], [place] [address] 08 Oct, 2014 [facility] [address] [id number] [address] [place] [address], [place] [address] 08 Oct, 2014 [facility] [address] [id number] [address] [place] [address], [place] [address] Oct, [facility] [address] [id number] [address] [place] [address], [place] [address] 05 Oct, 2014 [facility] [address] [id number] [address] [place] [address], [place] [address] Oct, [facility] [address] [id number] [address] [place] [address], [place] [address] Oct, [facility] [address] [id number] [address] [place] [address], [place] [address] Oct, [facility] [address] [id number] [address] [place] [address], [place] [address] Oct, [facility] [address] [id number] [address] [place] [address], [place] [address] Oct, [facility] [address] [id number] [address] [place] [address], [place] [address] Oct, [facility] [address] [id number] [address] [place] [address], [place] [address] Sep, [facility] [address] [id number] [address] [place] [address], [place] [address] Sep, [facility] [address] [id number] [address] [place] [address], [place] [address] Sep, [facility] [address] [id number] [address] [place] [address], [place] [address] Sep, [facility] [address] [id number] [address] [place] [address], [place] [address] Sep, [facility] [address] [id number] [address] [place] [address], [place] [address] Sep, [facility] [address] [id number] [address] [place] [address], [place] [address] Sep, [facility] [address] [id number] [address] [place] [address], [place] [address] Sep, [facility] [address] [id number] [address] [place] [address], [place] [address] Sep, [facility] [address] [id number] [address] [place] [address], [place] [address] Aug, [facility] [address] [id number] [address] [place] [address], [place] [address] Aug, [facility] [address] [id number] [address] [place] [address], [place] [address] Aug, [facility] [address] [id number] [address] [place] [address], [place] [address] Aug, [facility] [address] [id number] [address] [place] [address], [place] [address] Aug, [facility] [address] [id number] [address] [place] [address], [place] [address] Aug, [facility] [address] [id number] [address] [place] [address], [place] [address] Aug, [facility] [address] [id number] [address] [place] [address], [place] [address] Aug, [facility] [address] [id number] [address] [place] [address], [place] [address] Aug, [facility] [address] [id number] [address] [place] [address], [place] [address] Jul, [facility] [address] [id number] [address] [place] [address], [place] [address] 29 Jul, 2014 [facility] [address] [id number] [address] [place] [address], [place] [address] 25 Jul, 2014 [facility] [address] [id number] [address] [place] [address], [place] [address] Jul, [facility] [address] [id number] [facility] [place] [address] Jul, [facility] [address] [id number] [address] [place] [address], [place] [address] Jul, [facility] [address] [id number] [address] [place] [address], [place] [address] Jul, [facility] [address] [id number] [address] [place] [address], [place] [address] Jul, [facility] [address] [id number] [address] [place] [address], [place] [address] Jul, [facility] [address] [id number] [address] [place] [address], [place] [address] Jul, [facility] [address] [id number] [address] [place] [address], [place] [address] Jun, [facility] [address] [id number] [address] [place] [address], [place] [address] Jun, [facility] [address] [id number] [address] [place] [address], [place] [address] Jun, [facility] [address] [id number] [address] [place] [address], [place] [address] Jun, [facility] [address] [id number] [address] [place] [address], [place] [address] Jun, [facility] [address] [id number] [address] [place] [address], [place] [address] Jun, [facility] [address] [id number] [address] [place] [address], [place] [address] Jun, [facility] [address] [id number] [address] [place] [address], [place] [address] Jun, [facility] [address] [id number] [address] [place] [address], [place] [address] Jun, [facility] [address] [id number] [facility] [place] [address] Jun, [facility] [address] [id number] [address] [place] [address], [place] [address] Jun, [facility] [address] [id number] [address] [place] [address], [place] [address] Jun, [facility] [address] [id number] [address] [place] [address], [place] [address] May, [facility] [address] [id number] [address] [place] [address], [place] [address] May, [facility] [address] [id number] [address] [place] [address], [place] [address] May, [facility] [address] [id number] [address] [place] [address], [place] [address] May, [facility] [address] [id number] [address] [place] [address], [place] [address] May, [facility] [address] [id number] [address] [place] [address], [place] [address] May, [facility] [address] [id number] [address] [place] [address], [place] [address] March, [facility] [address] [id number] [address] [place] [address], [place] [address] March, [facility] [address] [id number] [address] [place] [address], [place] [address] March, [facility] [address] [id number] [address] [place] [address], [place] [address] March, [facility] [address] [id number] [address] [place] [address], [place] [address] March, [facility] [address] [id number] [address] [place] [address], [place] [address] March, [facility] [address] [id number] [address] [place] [address], [place] [address] Feb, [facility] [address] [id number] [facility] [place] [address] Feb, [facility] [address] [id number] [address] [place] [address], [place] [address] Feb, [facility] [address] [id number] [address] [place] [address], [place] [address] Feb, [facility] [address] [id number] [address] [place] [address], [place] [address] Jan, [facility] [address] [id number] [address] [place] [address], [place] [address] Jan, [facility] [address] [id number] [address] [place] [address], [place] [address] Jan, [facility] [address] [id number] [address] [place] [address], [place] [address] Jan, [facility] [address] [id number] [address] [place] [address], [place] [address] Jan, [facility] [address] [id number] [address] [place] [address], [place] [address] Jan, [facility] [address] [id number] [address] [place] [address], [place] [address] Jan, [facility] [address] [id number] [address] [place] [address], [place] [address] Jan, [facility] [address] [id number] [address] [place] [address], [place] [address] Jan, [facility] [address] [id number] [address] [place] [address], [place] [address] Jan, [facility] [address] [id number] [address] [place] [address], [place] [address] Jan, [facility] [address] [id number] [address] [place] [address], [place] [address] Jan, [facility] [address] [id number] [address] [place] [address], [place] [address] Dec, [facility] [address] [id number] [address] [place] [address], [place] [address] Dec, [facility] [address] [id number] [address] [place] [address], [place] [address] Dec, [facility] [address] [id number] [address] [place] [address], [place] [address] Dec, [facility] [address] [id number] [address] [place] [address], [place] [address] Dec, [facility] [address] [id number] [address] [place] [address], [place] [address] Dec, [facility] [address] [id number] [address] [place] [address], [place] [address] Nov, [facility] [address] [id number] [address] [place] [address], [place] [address] Nov, [facility] [address] [id number] [address] [place] [address], [place] [address] Oct, [facility] [address] [id number] [address] [place] [address], [place] [address] Oct, [facility] [address] [id number] [address] [place] [address], [place] [address] Oct, [facility] [address] [id number] [address] [place] [address], [place] [address] Oct, [facility] [address] [id number] [address] [place] [address], [place] [address] Oct, [facility] [address] [id number] [address] [place] [address], [place] [address] Oct, [facility] [address] [id number] [address] [place] [address], [place] [address] Sep, [facility] [address] [id number] [address] [place] [address], [place] [address] Sep, [facility] [address] [id number] [address] [place] [address], [place] [address] Sep, [facility] [address] [id number] [address] [place] [address], [place] [address] Sep, [facility] [address] [id number] [address] [place] [address], [place] [address] Aug, [facility] [address] [id number] [address] [place] [address], [place] [address] Aug, [facility] [address] [id number] [address] [place] [address], [place] [address] Aug, [facility] [address] [id number] [address] [place] [address], [place] [address] 17 Jul, 2013 [facility] [address] [id number] [address] [place] [address], [place] [address] 14 Jul, 2013 [facility] [address] [id number] [address] [place] [address], [place] [address] Jul, [facility] [address] [id number] [address] [place] [address], [place] [address] Jun, [facility] [address] [id number] [address] [place] [address], [place] [address] Jun, [facility] [address] [id number] [address] [place] [address], [place] [address] Jun, [facility] [address] [id number] [address] [place] [address] Apr, [facility] [address] [id number] [address] [place] [address], [place] [address] Apr, [facility] [address] [id number] [address] [place] [address], [place] [address] March, [facility] [address] [id number] [address] [place] [address], [place] [address] March, [facility] [address] [id number] [address] [place] [address], [place] [address] March, [facility] [address] [id number] [address] [place] [address], [place] [address] March, [facility] [address] [id number] [address] [place] [address], [place] [address] Feb, [facility] [address] [id number] [address] [place] [address], [place] [address] Jan, [facility] [address] [id number] [address] [place] [address], [place] [address] Dec, [facility] [address] [id number] [address] [place] [address], [place] [address] Dec, [facility] [address] [id number] [address] [place] [address], [place] [address] Dec, [facility] [address] [id number] [address] [place] [address], [place] [address] Nov, [facility] [address] [id number] [address] [place] [address], [place] [address] Oct, [facility] [address] [id number] [address] [place] [address], [place] [address] Oct, [facility] [address] [id number] [address] [place] [address], [place] [address] Sep, [facility] [address] [id number] [address] [place] [address], [place] [address] Sep, [facility] [address] [id number] [address] [place] [address], [place] [address] Sep, [facility] [address] [id number] [address] [place] [address], [place] [address] Sep, [facility] [address] [id number] [address] [place] [address], [place] [address] Sep, [facility] [address] [id number] [address] [place] [address], [place] [address] Sep, [facility] [address] [id number] [address] [place] [address], [place] [address] Sep, [facility] [address] [id number] [address] [place] [address], [place] [address] Aug, [facility] [address] [id number] [address] [place] [address], [place] [address] 16 Aug, 2012 [facility] [address] [id number] [address] [place] [address], [place] [address] Aug, [facility] [address] [id number] [address] [place] [address], [place] [address] Aug, [facility] [address] [id number] [address] [place] [address], [place] [address] Aug, [facility] [address] [id number] [address] [place] [address], [place] [address] Aug, [facility] [address] [id number] [address] [place] [address], [place] [address] Aug, [facility] [address] [id number] [address] [place] [address], [place] [address] Aug, [facility] [address] [id number] [address] [place] [address], [place] [address] Jul, [facility] [address] [id number] [address] [place] [address], [place] [address] Jul, [facility] [address] [id number] [address] [place] [address], [place] [address] Jun, [facility] [address] [id number] [address] [place] [address], [place] [address] May, [facility] [address] [id number] [address] [place] [address], [place] [address] Apr, [facility] [address] [id number] [address] [place] [address], [place] [address] Apr, [facility] [address] [id number] [address] [place] [address], [place] [address] Apr, [facility] [address] [id number] [address] [place] [address], [place] [address] March, [facility] [address] [id number] [address] [place] [address], [place] [address] March, [facility] [address] [id number] [address] [place] [address], [place] [address] March, [facility] [address] [id number] [address] [place] [address], [place] [address] March, [facility] [address] [id number] [address] [place] [address], [place] [address] March, [facility] [address] [id number] [address] [place] [address], [place] [address] March, [facility] [address] [id number] [address] [place] [address], [place] [address] March, [facility] [address] [id number] [address] [place] [address], [place] [address] Jan, [facility] [address] [id number] [address] [place] [address], [place] [address] Jan, [facility] [address] [id number] [address] [place] [address], [place] [address] Jan, [facility] [address] [id number] [address] [place] [address], [place] [address] Jan, [facility] [address] [id number] [address] [place] [address], [place] [address] Jan, [facility] [address] [id number] [address] [place] [address], [place] [address] Dec, [facility] [address] [id number] [address] [place] [address], [place] [address] Dec, [facility] [address] [id number] [address] [place] [address], [place] [address] Nov, [facility] [address] [id number] [address] [place] [address], [place] [address] 10 Nov, 2011 [facility] [address] [id number] [address] [place] [address], [place] [address] Nov, [facility] [address] [id number] [address] [place] [address], [place] [address] Nov, [facility] [address] [id number] [address] [place] [address], [place] [address] Oct, [facility] [address] [id number] [address] [place] [address], [place] [address] Oct, [facility] [address] [id number] [address] [place] [address], [place] [address] [address], [address] [facility] [address] [id number] [address] [place] [address], [place] [address] Sep, [facility] [address] [id number] [address] [place] [address], [place] [address] Sep, [facility] [address] [id number] [address] [place] [address], [place] [address] May, [facility] [address] [id number] [address] [place] [address], [place] [address] Nov, [facility] [address] [id number] [address] [place] [address], [place] [address] [address], [address] [facility] [address] [id number] [address] [place] [address], [place] [address] [address] Oct, [address] [facility] [address] [id number] [address] [place] [address], [place] [address] 08 Oct, 2010 [facility] [address] [id number] [address] [place] [address], [place] [address] 15 Sep, 2010 [facility] [address] [id number] [address] [place] [address], [place] [address] 02 Sep, [address] [facility] [address] [id number] [address] [place] [address], [place] [address] Aug, [facility] [address] [id number] [address] [place] [id number] March, [facility] [address] [id number] [address] [place] [id number] Oct, [facility] [address] [id number] [address] [place] [id number] Oct, [facility] [address] [id number] [address] [place] [id number] Oct, [facility] [address] [id number] [address] [place] [id number] Oct, [facility] [address] [id number] [address] [place] [id number] Sep, [facility] [address] [id number] [address] [place] [id number] Sep, [facility] [address] [id number] [address] [place] [id number] Sep, [facility] [address] [id number] [address] [place] [id number] Aug, [facility] [address] [id number] [address] [place] [id number] Aug, [facility] [facility] [address] [id number] [address] [place] [id number] Aug, [facility] [address] [id number] [address] [place] [id number] Jan, IMMUNIZATIONS No Known Immunizations SOCIAL HISTORY [...]
--- OUTSIDE RECORDS SUMMARY | 2020-06-13 16:46 | XMS REPORT ---
Author Author Jah Durant Doctor Organization [facility] Address Unknown Phone Unavailable Care Team Providers Care Residential Subcontractor Name Role Phone Migration, Doctor Unavailable Unavailable PROBLEMS Type Condition ICD9-CM Code JVE85-[id number] Code Onset Dates Condition S tatus SNOMED Code Problem Neuropathy G62.9 Active 423514353 Problem Chronic pain G89.29 Active 2971289 1 Problem Overactive bladder N32.81 Active 2 58848522 Problem Hypothyroid E03.9 Active 19818500 Problem Irritable bowel syndrome with diarrhea K58.0 Active 975017412 Problem snf current use of insulin Z79.4 Active 377336341 Problem Type 2 diabetes mellitus with hyperglycemia E11.65 Active 42090174 Problem Chronic obstructive pulmonary disease, unspecified COPD ty pe J44.9 Active 54971947 Problem Gastroesophageal reflux disease with esophagitis K 21.0 Active 706111244 Problem Major depressive disorder, recurrent, in full remission F33.42 Active 63099120 Problem Mixed hyperlipidemia E78.2 Active 571528942 Problem Essential (primary) hypertension I10 Active 33482297 Problem Anxiety disorder, unspecified type F41.9 Active 621657235 Problem Gastroparesis K31.84 Active 158887 006 Problem 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 Active [id number] ALLERGIES No Information ENCOUNTERS Encounter Location Date Diagnosis [facility] [address] [facility] [id number] [address] [place] [address] Jun, Other chronic pain G89.29 [facility] [address] [facility] [id number] [address] [place] [id number] Jun, [facility] [address] [facility] [id number] [address] [place] [id number] Jun, Chronic pain G89.29 [facility] [address] [facility] [id number] [address] [place] [id number] Jun, Neuropathy G62.9 [facility] [address] [place] [id number] [address] [place] [address] Jun, Encounter for Medicare annua l wellness exam Z00.00 ; Type 2 diabetes mellitus with hyperglycemia E11.65 ; Mixed hyperlipidemia E78.2 ; Hypothyroid E03.9 ; Gastroesophageal reflux disease with esophagitis K21.0 ; Essential (primary) hypertension I10 ; Major depressive disorder, recurrent, in full remission F33.42 ; Chronic obstructive pulmonary disease, unspecified COPD type J44.9 ; Neuropathy G62.9 and Encounter for immunization Z23 [place] [address] [facility] [id number] [address] [place] [id number] Jun, Irritable bowel syndrome wit h diarrhea K58.0 [place] [address] [facility] [id number] [address] [place] [address] May, Chronic pain G89.29 [place] [address] [place] [id number] [address] [place] [id number] May, Type 2 diabetes mellitus wit h hyperglycemia E11.65 and Neuropathy G62.9 [place] [address] [facility] [id number] [address] [place] [id number] May, Chronic pain G89.29 [place] [address] [facility] [id number] [address] [place] [address] Apr, Poison maryam dermatitis L23.7 [place] [address] [facility] [id number] [address] [place] [id number] Apr, Chronic pain G89.29 [place] [address] [facility] [id number] [address] [place] [id number] March, Type 2 diabetes mellitus wit h hyperglycemia E11.65 [place] [address] [facility] [id number] [address] [place] [id number] March, Chronic pain G89.29 [place] [address] [facility] [id number] [address] [place] [phone] March, [address] [address] Feb, [facility] [address] [facility] [id number] [address] [place] [id number] 09 Feb, 2019 Other chronic pain G89.29 an d Chronic pain G89.29 [facility] [address] [facility] [id number] [address] [place] [id number] Jan, Mixed hyperlipidemia E78.2 [facility] [address] [facility] [id number] [address] [place] [address] Jan, Chronic pain G89.29 [facility] [address] [facility] [id number] [address] [place] [id number] 08 Jan, 2019 Type 2 diabetes mellitus wit h hyperglycemia E11.65 ; Mixed hyperlipidemia E78.2 ; snf current use of insulin Z79.4 ; Acquired hypothyroidism E03.9 and Essential (primary) hypertension I10 [facility] [address] [facility] [id number] [address] [place] [id number] Dec, Chronic pain G89.29 [facility] [address] [facility] [id number] [address] [place] [id number] Nov, Chronic pain G89.29 [facility] [address] [facility] [id number] [address] [place] [id number] Nov, [facility] [address] [facility] [id number] [address] [place] [address] Oct, Chronic pain G89.29 [facility] [address] [facility] [id number] [address] [place] [id number] Oct, [facility] [address] [facility] [id number] [address] [place] [id number] Sep, [facility] [address] [facility] [id number] [address] [place] [phone] Sep, Type 2 diabetes mellitus wit h hyperglycemia E11.65 [facility] [address] [facility] [id number] [address] [place] [id number] 16 Sep, 2018 Chronic pain G89.29 [facility] [address] [address] Sep, [place] [address] [address] Sep, Type 2 diabetes mellitus wit h hyperglycemia E11.65 ; Irritable bowel syndrome with diarrhea K58.0 ; Gastroparesis K31.84 ; 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 and Dermatitis L30.9 [place] [address] [address] Aug, Chronic pain G89.29 [place] [address] [address] Jul, Chronic pain G89.29 [place] [address] [address] Jun, Type 2 diabetes mellitus wit h hyperglycemia E11.65 ; Neuropathy G62.9 ; Recurrent major depressive disorder, in partial remission F33.41 ; Chronic pain G89.29 and Hypertriglyceridemia E78.1 [place] [address] [address] Jun, Hypothyroid E03.9 [place] [address] [address] Jun, Major depressive disorder, r ecurrent episode, moderate F33.1 and Anxiety disorder, unspecified type F41.9 [place] [address] [address] Jun, [place] [address] [address] Jun, Type 2 diabetes mellitus wit h hyperglycemia E11.65 ; 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 ; Recurrent major depressive disorder, in partial remission F33.41 ; Hypothyroid E03.9 ; Candidal dermatitis B37.2 and Weakness generalized R53.1 [place] [address] [address] May, [facility] [address] [facility] [id number] [address] [place] [address] May, [facility] [address] [facility] [id number] [address] [place] [id number] May, [facility] [address] [facility] [id number] [address] [place] [address] May, Generalized abdominal pain R 10.84 and Candidal dermatitis B37.2 [facility] [address] [facility] [id number] [address] [place] [id number] May, [facility] [address] [facility] [id number] [address] [place] [id number] May, [facility] [address] [facility] [id number] [address] [place] [id number] May, Nodular radiologic density R 93.8 ; Weight loss, unintentional R63.4 and Pulmonary emphysema, unspecified emphysema type J43.9 [place] [address] [place] [id number] [address] [place] [address] May, Chronic pain G89.29 [place] [address] [place] [id number] [address] [place] [address] May, Syncope and collapse R55 ; C hronic fatigue R53.[address] lung screening R91.8 [place] [address] [place] [id number] [address] [place] [id number] May, [place] [address] [place] [id number] [address] [place] [id number] Apr, Chronic fatigue R53.82 ; Abn ormal chest CT R93.8 ; Elevated erythrocyte sedimentation rate R70.0 ; Hypothyroid E03.9 and Recurrent major depressive disorder, in partial remission F33.41 [place] [address] [facility] [id number] [address] [place] [id number] Apr, Hypothyroid E03.9 [place] [address] [facility] [id number] [address] [place] [phone] Apr, Depression F32.9 [place] [address] [facility] [id number] [address] [place] [phone] Apr, [place] [address] [facility] [id number] [address] [place] [address] March, [place] [address] [facility] [id number] [address] [place] [address] March, Hypothyroid E03.9 [place] [address] [facility] [id number] [address] [place] [id number] March, Diabetes mellitus E11.9 and Hypothyroid E03.9 [place] [address] [facility] [id number] [address] [place] [phone] March, Diabetes mellitus E11.9 [place] [address] [place] [id number] [address] [place] [id number] March, Hypothyroid E03.9 and Elevat ed liver enzymes R74.8 [place] [address] [facility] [id number] [address] [place] [phone] March, Type 2 diabetes mellitus wit h hyperglycemia E11.65 ; 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 ; Pulmonary emphysema, unspecified emphysema type J43.9 ; Hypothyroid E03.9 ; Neuropathy G62.9 ; Mixed hyperlipidemia E78.2 ; Chronic pain G89.29 ; Gastroesophageal reflux disease with esophagitis K21.0 ; Irritable bowel syndrome with diarrhea K58.0 ; Overactive bladder N32.81 and Recurrent major depressive disorder, in partial remission F33.41 [place] [address] [facility] [id number] [address] [place] [address] Feb, Chronic pain G89.29 [place] [address] [place] [id number] [address] [place] [id number] Feb, Type 2 diabetes mellitus wit h hyperglycemia E11.65 and Skin lesion of scalp L98.9 [place] [address] [place] [id number] [address] [place] [phone] Feb, [place] [address] [facility] [id number] [address] [place] [id number] Jan, Type 2 diabetes mellitus wit h [...] and Irritable bowel syndrome with diarrhea K58.0 [place] [address] [facility] [id number] [address] [place] [id number] Jan, [place] [address] [place] [id number] [address] [place] [id number] Jan, Controlled substance agreeme nt signed Z79.899 [place] [address] [place] [id number] [address] [place] [id number] Dec, Type 2 diabetes mellitus wit h hyperglycemia E11.65 ; Controlled substance agreement signed Z79.899 ; 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 ; Essential (primary) hypertension I10 ; Hypothyroid E03.9 ; Neuropathy G62.9 ; Depression F32.9 ; Mixed hyperlipidemia E78.2 ; Irritable bowel syndrome with diarrhea K58.0 ; Gastroesophageal reflux disease with esophagitis K21.0 ; Thrombocytosis D47.3 ; Current non-adherence to medical treatment Z91.19 and Overweight (BMI 25.0-29.9) E66.3 [place] [address] [place] [id number] [address] [place] [phone] Dec, Controlled substance agreeme nt signed Z79.899 [place] [address] [place] [id number] [address] [place] [id number] Nov, Type 2 diabetes mellitus wit h hyperglycemia E11.65 and Current non- adherence to medical treatment Z91.19 [place] [address] [place] [id number] [address] [place] [id number] Nov, [facility] [address] [id number] [address] [place] [id number] Nov, Chronic pain G89.29 [facility] [address] [id number] [address] [place] [address] Nov, [facility] [address] [facility] [id number] [address] [place] [id number] Nov, Hypothyroid E03.9 [facility] [address] [id number] [address] [place] [address] Nov, Hypothyroid E03.9 [facility] [address] [id number] [address] [place] [id number] Nov, Pulmonary emphysema, unspeci fied emphysema type J43.9 and Irritable bowel syndrome with diarrhea K58.0 [facility] [address] [facility] [id number] [address] [place] [phone] Oct, [facility] [address] [facility] [id number] [address] [place] [phone] Oct, [facility] [address] [id number] [address] [place] [id number] Oct, [facility] [address] [facility] [id number] [address] [place] [id number] Oct, [facility] [address] [facility] [id number] [address] [place] [phone] Oct, Chronic pain G89.29 [facility] [address] [id number] [address] [place] [id number] Oct, Diabetes mellitus E11.9 ; De pression F32.9 ; Mixed hyperlipidemia E78.2 ; Hypotension, unspecified hypotension type I95.9 ; Pulmonary emphysema, unspecified emphysema type J43.9 and Weight loss, unintentional R63.4 [facility] [address] [facility] [id number] [address] [place] [phone] Oct, Chronic pain G89.29 [facility] [address] [place] [id number] [address] [place] [address] Sep, Chronic pain G89.29 [facility] [address] [place] [id number] [place] [address] Sep, Hypothyroid E03.9 and Diabet es mellitus E11.9 [facility] [address] [place] [id number] [address] [place] [address] Aug, Type 2 diabetes mellitus wit h hyperglycemia E11.65 ; snf current use of insulin Z79.4 ; Essential (primary) hypertension I10 ; Hypothyroid E03.9 ; Neuropathy G62.9 ; Chronic pain G89.29 ; Mixed hy perlipidemia E78.2 and Encounter for immunization Z23 [facility] [address] [place] [id number] [address] [place] [address] Aug, Chronic pain G89.29 [place] [address] [address] Aug, Overactive bladder N32.81 ; Diabetes mellitus E11.9 and Chronic pain G89.29 [place] [id number] [place] [id number] [address] [place] [id number] Jul, [place] [address] [id number] Jun, [place] [address] [address] Jun, [facility] [address] [place] [id number] [address] [place] [address] Jun, Hypothyroid E03.9 [facility] [address] [place] [id number] [address] [place] [phone] Jun, Diabetes mellitus E11.9 ; Hy pothyroid E03.9 ; Neuropathy G62.9 ; Chronic pain G89.29 and Neck mass R22.1 [facility] [address] [place] [id number] [address] [place] [id number] Apr, [facility] [address] [place] [id number] [address] [place] [address] Apr, Acute cystitis without hemat uria N30.00 [facility] [address] [place] [id number] [address] [place] [id number] March, [facility] [address] [place] [id number] [address] [place] [address] March, [facility] [address] [address] March, Near syncope R55 [facility] [address] [address] Feb, [facility] [address] [address] Feb, Chronic pain G89.29 [place] [address] [id number] Feb, [facility] [address] [place] [id number] [address] [place] [address] Feb, [facility] [address] [address] Jan, Chronic pain G89.29 [facility] [address] [address] Jan, [facility] [address] [address] Jan, [facility] [address] [place] [id number] [address] [place] [address] 14 Jan, 2017 Diabetes mellitus E11.9 ; Hy pothyroid E03.9 ; GERD (gastroesophageal reflux disease) K21.9 ; Insomnia G47.00 ; Functional diarrhea K59.1 ; Neuropathy G62.9 ; Depression F32.9 ; Chronic pain G89.29 ; Irritable bowel syndrome with diarrhea K58.0 ; Overactive bladder N32.81 ; Mixed hyperlipidemia E78.2 and Bronchitis J40 [facility] [address] [place] [id number] [address] [place] [id number] Dec, [facility] [address] [facility] [id number] [address] [place] [id number] Dec, [facility] [address] [facility] [id number] [address] [place] [id number] Dec, [facility] [address] [facility] [id number] [address] [place] [address] Dec, [facility] [address] [facility] [id number] [address] [place] [address] Dec, Chronic pain G89.29 [facility] [address] [facility] [id number] [address] [place] [id number] Dec, [facility] [address] [place] [id number] [address] [place] [address] Dec, [facility] [address] [place] [id number] [address] [place] [address] Dec, Type 2 diabetes mellitus wit h foot ulcer E11.621 [facility] [address] [place] [id number] [address] [place] [id number] 17 Dec, 2016 Type 2 diabetes mellitus wit h foot ulcer E11.621 [facility] [id number] [place] [address] 14 Dec, 2016 HTN (hypertension) I10 ; Dep ression F32.9 ; Type 2 diabetes mellitus with foot ulcer E11.621 ; Functional diarrhea K59.1 ; Irritable bowel syndrome with diarrhea K58.0 ; Chronic pain G89.29 ; Insomnia G47.00 ; Overactive bladder N32.81 ; Mixed hyperlipidemia E78.2 ; Gastroesophageal reflux disease with esophagitis K21.0 and Acquired hypothyroidism E03.9 [facility] [address] [place] [id number] [address] [place] [address] Nov, [facility] [id number] [place] [address] Oct, [place] [address] [address] Oct, [place] [address] [address] Oct, [place] [address] [address] Sep, Functional diarrhea K59.1 ; HTN (hypertension) I10 ; Diabetes mellitus E11.9 ; Depression F32.9 ; Overactive bladder N32.81 ; Mixed hyperlipidemia E78.2 ; Gastroesophageal reflux disease without esophagitis K21.9 ; Chronic pain G89.29 ; Insomnia G47.00 and Acquired hypothyroidism E03.9 [place] [address] [address] Sep, [place] [address] [address] Aug, Encounter for immunization Z 23 [place] [address] [address] 06 Aug, 2016 [place] [address] [address] Jul, [place] [address] [address] Jun, Type 2 diabetes mellitus wit hout complications E11.9 ; HTN (hypertension) I10 ; Hypothyroid E03.9 ; Neuropathy G62.9 ; Depression F32.9 ; Chronic pain G89.29 ; GERD (gastroesophageal reflux disease) K21.9 ; Insomnia G47.00 ; Overactive bladder N32.81 ; Mixed hyperlipidemia E78.2 ; Diarrhea of infectious origin A09 and Environmental allergies Z91.09 [place] [address] [place] [id number] [address] [place] [phone] Apr, [place] [address] [address] March, Hypothyroidism, unspecified E03.9 and Mixed hyperlipidemia E78.2 [place] [id number] [place] [id number] [address] [place] [id number] March, Diabetes mellitus E11.9 ; HT N (hypertension) I10 ; Hypothyroid E03.9 ; Depression F32.9 ; Overactive bladder N32.81 ; Other chronic pain G89.29 ; Lumbago with sciatica, unspecified side M54.40 ; Environmental allergies Z91.09 and Gastroesophageal reflux disease, esophagitis presence not specified K21.9 [place] [address] [place] [id number] [address] [place] [address] March, [place] [address] [address] Jan, HTN (hypertension) I10 ; Hyp othyroid E03.9 ; Neuropathy G62.9 ; Diabetes mellitus E11.9 ; Chronic pain G89.29 ; GERD (gastroesophageal reflux disease) K21.9 ; Overactive bladder N32.81 and Depression F32.9 [place] [address] [place] [id number] [address] [place] [id number] Dec, Ear pain, left H92.02 ; HTN (hypertension) I10 ; Hypothyroid E03.9 ; Neuropathy G62.9 ; Diabetes mellitus E11.9 ; Depression F32.9 ; GERD (gastroesophageal reflux disease) K21.9 ; Insomnia G47.00 and Overactive bladder N32.81 [place] [address] [place] [id number] [address] [place] [id number] Nov, Overactive bladder N32.81 an d Chronic pain G89.29 [place] [address] [facility] [id number] [address] [place] [id number] Nov, Kidney failure N19 [place] [address] [place] [id number] [address] [place] [phone] Nov, [place] [address] [place] [id number] [address] [place] [address] Nov, [place] [address] [address] Nov, Diabetes mellitus E11.9 ; De pression F32.9 ; Chronic pain G89.29 ; GERD (gastroesophageal reflux disease) K21.9 ; Insomnia G47.00 ; HTN (hypertension) I10 ; Hypothyroid E03.9 ; COPD (chronic obstructive pulmonary disease) J44.9 ; Bladder incontinence R32 and Incontinence R32 [place] [address] [address] Sep, Type 2 diabetes mellitus wit h foot ulcer E11.621 and Chromosomal abnormality, 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 [id number] Sep, [place] [address] [id number] Aug, [address] [address] Aug, [place] [address] [address] Aug, HTN (hypertension) I10 ; Enc ounter for immunization Z23 ; Hypothyroid E03.9 ; Neuropathy G62.9 ; Diabetes mellitus E11.9 ; Depression F32.9 ; Chronic pain G89.29 ; GERD (gastroesophageal reflux disease) K21.9 ; Insomnia G47.00 and COPD (chronic obstructive pulmonary disease) J44.9 [place] [address] [address] Jun, [place] [address] [address] Jun, [address] [address] May, Essential hypertension, ivis gn 401.1 ; Unspecified hypothyroidism 244.9 ; Insomnia, unspecified 780.52 ; Shortness of breath 786.05 ; Depression 311 ; COPD (chronic obstructive pulmonary disease) 496 ; GERD (gastroesophageal reflux disease) 530.81 and Diabetes 1.5, 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 [facility] [address] [facility] [id number] [address] [place] [id number] May, [facility] [address] [facility] [id number] [address] [place] [id number] May, [facility] [address] [facility] [id number] [address] [place] [id number] May, Shortness of breath 786.05 ; Essential hypertension, benign 401.1 ; Diabetes mellitus 250.00 ; Hyperlipidemia 272.4 ; Hypothyroid 244.9 ; Insomnia 780.52 and Cough 786.2 [facility] [address] [facility] [id number] [address] [place] [address] Apr, [facility] [address] [facility] [id number] [address] [place] [address] March, Shortness of breath 786.05 ; Nausea with vomiting 787.01 ; Essential hypertension, benign 401.1 ; Diabetes mellitus 250.00 ; Hyperlipidemia 272.4 and Hypothyroid 244.9 [facility] [address] [place] [id number] [address] [place] [address] Feb, [facility] [address] [facility] [id number] [address] [place] [address] Feb, [facility] [address] [facility] [id number] [address] [place] [address] Jan, [facility] [address] [facility] [id number] [address] [place] [address] Jan, [facility] [address] [facility] [id number] [address] [place] [address] Jan, [facility] [address] [facility] [id number] [address] [place] [address] Jan, [facility] [address] [facility] [id number] [address] [place] [address] Jan, [facility] [address] [place] [id number] [address] [place] [address] Jan, [facility] [address] [id number] [address] [place] [address], [place] [address] Jan, [facility] [address] [id number] [address] [place] [address], [place] [address] Jan, [facility] [address] [id number] [address] [place] [address], [place] [address] Jan, [facility] [address] [id number] [address] [place] [address], [place] [address] Jan, [facility] [address] [id number] [address] [place] [address], [place] [address] Dec, 2014 [facility] [address] [id number] [address] [place] [address], [place] [address] Dec, 2014 [facility] [address] [id number] [address] [place] [address], [place] [address] Dec, 2014 [facility] [address] [id number] [address] [place] [address], [place] [address] Dec, 2014 [facility] [address] [id number] [address] [place] [address], [place] [address] Dec, 2014 [facility] [address] [id number] [address] [place] [address], [place] [address] Dec, 2014 [facility] [address] [id number] [address] [place] [address], [place] [address] Dec, 2014 [facility] [address] [id number] [address] [place] [address] Dec, 2014 [facility] [address] [id number] [address] [place] [address], [place] [address] Dec, 2014 [facility] [address] [id number] [address] [place] [address] Dec, 2014 [facility] [address] [id number] [address] [place] [address] Oct, [facility] [address] [id number] [address] [place] [address], [place] [address] Oct, [facility] [address] [id number] [address] [place] [address], [place] [address] Oct, [facility] [address] [id number] [address] [place] [address], [place] [address] Oct, [facility] [address] [id number] [address] [place] [address], [place] [address] Oct, [facility] [address] [id number] [address] [place] [address], [place] [address] Oct, [facility] [address] [id number] [address] [place] [address], [place] [address] Oct, [facility] [address] [id number] [address] [place] [address], [place] [address] Oct, [facility] [address] [id number] [address] [place] [address], [place] [address] Oct, [facility] [address] [id number] [address] [place] [address], [place] [address] Oct, [facility] [address] [id number] [address] [place] [address], [place] [address] Oct, [facility] [address] [id number] [address] [place] [address], [place] [address] Oct, [facility] [address] [id number] [address] [place] [address], [place] [address] Oct, [facility] [address] [id number] [address] [place] [address], [place] [address] Oct, [facility] [address] [id number] [address] [place] [address], [place] [address] Sep, [facility] [address] [id number] [address] [place] [address], [place] [address] Sep, [facility] [address] [id number] [address] [place] [address] Sep, [facility] [address] [id number] [address] [place] [address], [place] [address] Sep, [facility] [address] [id number] [address] [place] [address] Sep, [facility] [address] [id number] [address] [place] [address], [place] [address] Sep, [facility] [address] [id number] [address] [place] [address], [place] [address] Sep, [facility] [address] [id number] [address] [place] [address], [place] [address] Sep, [facility] [address] [id number] [address] [place] [address], [place] [address] Sep, [facility] [address] [id number] [address] [place] [address], [place] [address] Aug, [facility] [address] [id number] [address] [place] [address], [place] [address] Aug, [facility] [address] [id number] [address] [place] [address] Aug, [facility] [address] [id number] [address] [place] [address], [place] [address] Aug, [facility] [address] [id number] [address] [place] [address] 16 Aug, 2014 [facility] [address] [id number] [address] [place] [address] Aug, [facility] [address] [id number] [address] [place] [address], [place] [address] Aug, [facility] [address] [id number] [address] [place] [address] Aug, [facility] [address] [id number] [address] [place] [address], [place] [address] Aug, [facility] [address] [id number] [facility] [place] [address] 29 Jul, 2013 [facility] [address] [id number] [facility] [place] [address] 29 Jul, 2013 [facility] [address] [id number] [facility] [place] [address] Jul, 2013 [facility] [address] [id number] [facility] [place] [address] Jul, 2013 [facility] [address] [id number] [facility] [place] [address] Jul, 2013 [facility] [address] [id number] [address] [place] [address], [place] [address] Jul, 2013 [facility] [address] [id number] [address] [place] [address], [place] [address] Jul, 2013 [facility] [address] [id number] [address] [place] [address], [place] [address] Jul, 2013 [facility] [address] [id number] [address] [place] [address], [place] [address] Jul, [facility] [address] [id number] [address] [place] [address], [place] [address] Jul, [facility] [address] [id number] [address] [place] [address], [place] [address] Jun, [facility] [address] [id number] [address] [place] [address], [place] [address] Jun, [facility] [address] [id number] [address] [place] [address], [place] [address] Jun, [facility] [address] [id number] [address] [place] [address], [place] [address] Jun, [facility] [address] [id number] [address] [place] [address], [place] [address] Jun, [facility] [address] [id number] [address] [place] [address], [place] [address] Jun, [facility] [address] [id number] [facility] [place] [address] Jun, [facility] [address] [id number] [facility] [place] [address] Jun, [facility] [address] [id number] [facility] [place] [address] Jun, [facility] [address] [id number] [address] [place] [address], [place] [address] Jun, [facility] [address] [id number] [address] [place] [address], [place] [address] Jun, [facility] [address] [id number] [address] [place] [address], [place] [address] Jun, [facility] [address] [id number] [address] [place] [address], [place] [address] May, [facility] [address] [id number] [address] [place] [address], [place] [address] May, [facility] [address] [id number] [address] [place] [address], [place] [address] May, [facility] [address] [id number] [address] [place] [address], [place] [address] May, [facility] [address] [id number] [address] [place] [address], [place] [address] May, [facility] [address] [id number] [address] [place] [address], [place] [address] May, [facility] [address] [id number] [address] [place] [address], [place] [address] March, [facility] [address] [id number] [address] [place] [address], [place] [address] March, [facility] [address] [id number] [address] [place] [address], [place] [address] March, [facility] [address] [id number] [address] [place] [address], [place] [address] March, [facility] [address] [id number] [address] [place] [address], [place] [address] March, [facility] [address] [id number] [address] [place] [address], [place] [address] March, [facility] [address] [id number] [address] [place] [address], [place] [address] Feb, [facility] [address] [id number] [address] [place] [address], [place] [address] Feb, [facility] [address] [id number] [address] [place] [address], [place] [address] Feb, [facility] [address] [id number] [address] [place] [address], [place] [address] Feb, [facility] [address] [id number] [address] [place] [address], [place] [address] Jan, [facility] [address] [id number] [address] [place] [address], [place] [address] Jan, [facility] [address] [id number] [address] [place] [address], [place] [address] Jan, [facility] [address] [id number] [address] [place] [address], [place] [address] Jan, [facility] [address] [id number] [address] [place] [address], [place] [address] Jan, [facility] [address] [id number] [address] [place] [address], [place] [address] Jan, [facility] [address] [id number] [address] [place] [address], [place] [address] Jan, [facility] [address] [id number] [address] [place] [address], [place] [address] Jan, [facility] [address] [id number] [address] [place] [address], [place] [address] Jan, [facility] [address] [id number] [address] [place] [address], [place] [address] Jan, [facility] [address] [id number] [address] [place] [address], [place] [address] Jan, [facility] [address] [id number] [address] [place] [address], [place] [address] Jan, [facility] [address] [id number] [address] [place] [address], [place] [address] Dec, [facility] [address] [id number] [address] [place] [address], [place] [address] Dec, [facility] [address] [id number] [address] [place] [address], [place] [address] Dec, [facility] [address] [id number] [address] [place] [address], [place] [address] Dec, [facility] [address] [id number] [address] [place] [address], [place] [address] Dec, [facility] [address] [id number] [address] [place] [address], [place] [address] Dec, [facility] [address] [id number] [address] [place] [address], [place] [address] Nov, [facility] [address] [id number] [address] [place] [address], [place] [address] Nov, [facility] [address] [id number] [address] [place] [address], [place] [address] Oct, [facility] [address] [id number] [address] [place] [address], [place] [address] Oct, [facility] [address] [id number] [address] [place] [address], [place] [address] Oct, [facility] [address] [id number] [address] [place] [address], [place] [address] Oct, [facility] [address] [id number] [address] [place] [address], [place] [address] Oct, [facility] [address] [id number] [address] [place] [address], [place] [address] Oct, [facility] [address] [id number] [address] [place] [address], [place] [address] Sep, [facility] [address] [id number] [address] [place] [address], [place] [address] Sep, [facility] [address] [id number] [address] [place] [address], [place] [address] Sep, [facility] [address] [id number] [address] [place] [address], [place] [address] Sep, [facility] [address] [id number] [address] [place] [address], [place] [address] Aug, [facility] [address] [id number] [address] [place] [address], [place] [address] Aug, [facility] [address] [id number] [address] [place] [address], [place] [address] Aug, [facility] [address] [id number] [address] [place] [address], [place] [address] Jul, [facility] [address] [id number] [address] [place] [address], [place] [address] 14 Jul, 2013 [facility] [address] [id number] [address] [place] [address], [place] [address] Jul, [facility] [address] [id number] [address] [place] [address], [place] [address] Jun, [facility] [address] [id number] [address] [place] [address], [place] [address] Jun, [facility] [address] [id number] [address] [place] [address], [place] [address] Jun, [facility] [address] [id number] [address] [place] [address], [place] [address] Apr, [facility] [address] [id number] [address] [place] [address], [place] [address] Apr, [facility] [address] [id number] [address] [place] [address], [place] [address] March, [facility] [address] [id number] [address] [place] [address], [place] [address] March, [facility] [address] [id number] [address] [place] [address], [place] [address] March, [facility] [address] [id number] [address] [place] [address], [place] [address] March, [facility] [address] [id number] [address] [place] [address], [place] [address] Feb, [facility] [address] [id number] [address] [place] [address], [place] [address] Jan, [facility] [address] [id number] [address] [place] [address], [place] [address] Dec, [facility] [address] [id number] [address] [place] [address], [place] [address] Dec, [facility] [address] [id number] [address] [place] [address], [place] [address] Dec, [facility] [address] [id number] [address] [place] [address], [place] [address] Nov, [facility] [address] [id number] [address] [place] [address], [place] [address] Oct, [facility] [address] [id number] [address] [place] [address], [place] [address] Oct, [facility] [address] [id number] [address] [place] [address], [place] [address] Sep, [facility] [address] [id number] [address] [place] [address], [place] [address] Sep, [facility] [address] [id number] [address] [place] [address], [place] [address] Sep, [facility] [address] [id number] [address] [place] [address], [place] [address] Sep, [facility] [address] [id number] [address] [place] [address], [place] [address] Sep, [facility] [address] [id number] [address] [place] [address], [place] [address] Sep, [facility] [address] [id number] [address] [place] [address], [place] [address] Sep, [facility] [address] [id number] [address] [place] [address], [place] [address] Aug, [facility] [address] [id number] [address] [place] [address], [place] [address] Aug, [facility] [address] [id number] [address] [place] [address], [place] [address] Aug, [facility] [address] [id number] [address] [place] [address], [place] [address] Aug, [facility] [address] [id number] [address] [place] [address], [place] [address] Aug, [facility] [address] [id number] [address] [place] [address] Aug, [facility] [address] [id number] [address] [place] [address] Aug, [facility] [address] [id number] [address] [place] [address] Aug, [facility] [address] [id number] [address] [place] [address], [place] [address] Jul, [facility] [address] [id number] [address] [place] [address], [place] [address] Jul, [facility] [address] [id number] [address] [place] [address], [place] [address] Jun, [facility] [address] [id number] [address] [place] [address], [place] [address] May, [facility] [address] [id number] [address] [place] [address], [place] [address] Apr, [facility] [address] [id number] [address] [place] [address], [place] [address] Apr, [facility] [address] [id number] [address] [place] [address], [place] [address] Apr, [facility] [address] [id number] [address] [place] [address], [place] [address] March, [facility] [address] [id number] [address] [place] [address], [place] [address] March, [facility] [address] [id number] [address] [place] [address], [place] [address] March, [facility] [address] [id number] [address] [place] [address], [place] [address] March, [facility] [address] [id number] [address] [place] [address], [place] [address] March, [facility] [address] [id number] [address] [place] [address], [place] [address] March, [facility] [address] [id number] [address] [place] [address], [place] [address] March, [facility] [address] [id number] [address] [place] [address], [place] [address] Jan, [facility] [address] [id number] [address] [place] [address], [place] [address] Jan, [facility] [address] [id number] [address] [place] [address], [place] [address] Jan, [facility] [address] [id number] [address] [place] [address], [place] [address] Jan, [facility] [address] [id number] [address] [place] [address], [place] [address] Jan, [facility] [address] [id number] [address] [place] [address], [place] [address] 08 Dec, 2011 [facility] [address] [id number] [address] [place] [address], [place] [address] Dec, [facility] [address] [id number] [address] [place] [address], [place] [address] Nov, [facility] [address] [id number] [address] [place] [address], [place] [address] Nov, [facility] [address] [id number] [address] [place] [address], [place] [address] Nov, [facility] [address] [id number] [address] [place] [address], [place] [address] Nov, [facility] [address] [id number] [address] [place] [address], [place] [address] Oct, [facility] [address] [id number] [address] [place] [address], [place] [address] Oct, [facility] [address] [id number] [address] [place] [address], [place] [address] 14 Sep, 2011 [facility] [address] [id number] [address] [place] [address], [place] [address] Sep, [facility] [address] [id number] [address] [place] [address], [place] [address] Sep, [facility] [address] [id number] [address] [place] [address], [place] [address] May, [facility] [address] [id number] [address] [place] [address], [place] [address] Nov, [facility] [address] [id number] [address] [place] [address], [place] [address] 29 Oct, 2010 [facility] [address] [id number] [address] [place] [address], [place] [address] 14 Oct, 2010 [facility] [address] [id number] [address] [place] [address] 08 Oct, 2010 [facility] [address] [id number] [address] [place] [address] 15 Sep, 2010 [facility] [address] [id number] [address] [place] [address] Sep, [facility] [address] [id number] [address] [place] [address] Aug, [facility] [address] [id number] [address] [place] [address] March, [facility] [address] [id number] [address] [place] [address] Oct, [facility] [address] [id number] [address] [place] [address] Oct, [facility] [address] [id number] [address] [place] [address] Oct, [facility] [address] [id number] [address] [place] [id number] Oct, [facility] [address] [id number] [address] [place] [id number] Sep, [facility] [address] [id number] [address] [place] [id number] Sep, [facility] [address] [id number] [address] [place] [id number] Sep, [facility] [address] [id number] [address] [place] [id number] Aug, [facility] [address] [id number] [address] [place] [id number] 24 Aug, 2009 [facility] [address] [id number] [address] [place] [id number] Aug, [facility] [address] [id number] [address] [place] [id number] 10 Jan, 2009 IMMUNIZATIONS No Known Immunizations [...]
[2020-06-13 16:47] LABS: TOTAL PROTEIN 7.8 GM/DL (6.4-8.2)
--- OUTSIDE RECORDS SUMMARY | 2020-06-13 16:47 | XMS REPORT ---
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 Name Role Phone Migration, Doctor Unavailable Unavailable PROBLEMS Type Condition ICD9-CM Code QFU51-LG Code Onset Dates Condition S tatus SNOMED Code Problem Neuropathy G62.9 Active 944636488 Problem Chronic pain G89.29 Active 8833561 1 Problem Overactive bladder N32.81 Active 2 57632607 Problem Hypothyroid E03.9 Active 27011003 Problem Irritable bowel syndrome with diarrhea K58.0 Active 317622273 Problem group home current use of insulin Z79.4 Active 877066021 Problem Type 2 diabetes mellitus with hyperglycemia E11.65 Active 81153992 Problem Chronic obstructive pulmonary disease, unspecified COPD ty pe J44.9 Active 84384667 Problem Gastroesophageal reflux disease with esophagitis K 21.0 Active 357681331 Problem Major depressive disorder, recurrent, in full remission F33.42 Active 14823389 Problem Mixed hyperlipidemia E78.2 Active 923806568 Problem Essential (primary) hypertension I10 Active 42043990 Problem Anxiety disorder, unspecified type F41.9 Active 935833580 Problem Gastroparesis K31.84 Active 637209 006 Problem 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 Active [id number] ALLERGIES No Information ENCOUNTERS Encounter Location Date Diagnosis [place] [address] [address] [facility] [id number] [address] [place] [address] Jun, Encounter for Medicare annua l wellness exam Z00.00 ; Type 2 diabetes mellitus with hyperglycemia E11.65 ; Mixed hyperlipidemia E78.2 ; Hypothyroid E03.9 ; Gastroesophageal reflux disease with esophagitis K21.0 ; Essential (primary) hypertension I10 ; Major depressive disorder, recurrent, in full remission F33.42 ; Chronic obstructive pulmonary disease, unspecified COPD type J44.9 ; Neuropathy G62.9 and Encounter for immunization Z23 [place] [facility] [id number] [address] [place] [address] Jun, Irritable bowel syndrome wit h diarrhea K58.0 [facility] [address] [id number] [address] [place] [address] May, Chronic pain G89.29 [facility] [address] [id number] [address] [place] [address] May, Type 2 diabetes mellitus wit h hyperglycemia E11.65 and Neuropathy G62.9 [facility] [address] [id number] [address] [place] [address] May, Chronic pain G89.29 [facility] [address] [id number] [address] [place] [address] Apr, Poison maryam dermatitis L23.7 [facility] [address] [facility] [id number] [address] [place] [address] Apr, Chronic pain G89.29 [facility] [address] [id number] [address] [place] [id number] March, Type 2 diabetes mellitus wit h hyperglycemia E11.65 [facility] [address] [facility] [id number] [address] [place] [id number] March, Chronic pain G89.29 [facility] [address] [facility] [id number] [address] [place] [id number] March, [address] [id number] Feb, [facility] [address] [id number] [address] [place] [address] Feb, Other chronic pain G89.29 an d Chronic pain G89.29 [facility] [address] [id number] [address] [place] [address] Jan, Mixed hyperlipidemia E78.2 [facility] [address] [id number] [address] [place] [address] Jan, Chronic pain G89.29 [facility] [address] [facility] [id number] [address] [place] [id number] Jan, Type 2 diabetes mellitus wit h hyperglycemia E11.65 ; Mixed hyperlipidemia E78.2 ; group home current use of insulin Z79.4 ; Acquired hypothyroidism E03.9 and Essential (primary) hypertension I10 [facility] [address] [facility] [id number] [address] [place] [address] 11 Dec, 2018 Chronic pain G89.29 [place] [address] [facility] [id number] [address] [place] [address] Nov, Chronic pain G89.29 [place] [address] [facility] [id number] [address] [place] [address] Nov, [place] [address] [facility] [id number] [address] [place] [id number] Oct, Chronic pain G89.29 [place] [address] [place] [id number] [address] [place] [address] Oct, [place] [address] [facility] [id number] [address] [place] [id number] Sep, [place] [address] [facility] [id number] [address] [place] [address] Sep, Type 2 diabetes mellitus wit h hyperglycemia E11.65 [place] [address] [facility] [id number] [address] [place] [id number] 16 Sep, 2018 Chronic pain G89.29 [place] [address] [place] [id number] [address] [place] [id number] Sep, [place] [address] [facility] [id number] [address] [place] [address] Sep, Type 2 diabetes mellitus wit h hyperglycemia E11.65 ; Irritable bowel syndrome with diarrhea K58.0 ; Gastroparesis K31.84 ; 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 and Dermatitis L30.9 [place] [address] [facility] [id number] [address] [place] [address] Aug, Chronic pain G89.29 [place] [address] [facility] [id number] [address] [place] [address] Jul, Chronic pain G89.29 [place] [address] [place] [id number] [address] [place] [address] Jun, Type 2 diabetes mellitus wit h hyperglycemia E11.65 ; Neuropathy G62.9 ; Recurrent major depressive disorder, in partial remission F33.41 ; Chronic pain G89.29 and Hypertriglyceridemia E78.1 [place] [address] [facility] [id number] [address] [place] [address] Jun, Hypothyroid E03.9 [place] [address] [facility] [id number] [place] [id number] Jun, Major depressive disorder, r ecurrent episode, moderate F33.1 and Anxiety disorder, unspecified type F41.9 [place] [address] [place] [id number] [address] [place] [address] Jun, [place] [address] [place] [id number] [address] [place] [address] Jun, Type 2 diabetes mellitus wit h hyperglycemia E11.65 ; pediatric dietician current use of insulin Z79.4 ; Recurrent major depressive disorder, in partial remission F33.41 ; Hypothyroid E03.9 ; Candidal dermatitis B37.2 and Weakness generalized R53.1 [place] [place] [id number] [address] [place] [address] May, [place] [address] [place] [id number] [address] [place] [address] May, [place] [address] [place] [id number] [address] [place] [address] May, [place] [address] [place] [id number] [address] [place] [address] May, Generalized abdominal pain R 10.84 and Candidal dermatitis B37.2 [place] [address] [place] [id number] [address] [place] [address] May, [place] [address] [facility] [id number] [address] [place] [address] May, [place] [address] [facility] [id number] [address] [place] [address] May, Nodular radiologic density R 93.8 ; Weight loss, unintentional R63.4 and Pulmonary emphysema, unspecified emphysema type J43.9 [place] [address] [facility] [id number] [address] [place] [address] May, Chronic pain G89.29 [place] [address] [facility] [id number] [address] [place] [id number] 09 May, 2018 Syncope and collapse R55 ; C hronic fatigue R53.[address] lung screening R91.8 [place] [address] [address] [facility] [id number] [address] [place] [address] May, [place] [address] [facility] [id number] [address] [place] [address] Apr, Chronic fatigue R53.82 ; Abn ormal chest CT R93.8 ; Elevated erythrocyte sedimentation rate R70.0 ; Hypothyroid E03.9 and Recurrent major depressive disorder, in partial remission F33.41 [place] [address] [facility] [id number] [address] [place] [address] Apr, Hypothyroid E03.9 [place] [address] [facility] [id number] [address] [place] [address] Apr, Depression F32.9 [place] [address] [facility] [id number] [address] [place] [address] Apr, [place] [address] [facility] [id number] [address] [place] [address] March, [place] [address] [facility] [id number] [address] [place] [address] March, Hypothyroid E03.9 [place] [address] [facility] [id number] [address] [place] [address] March, Diabetes mellitus E11.9 and Hypothyroid E03.9 [place] [id number] [place] [address] March, Diabetes mellitus E11.9 [place] [id number] [place] [address] March, Hypothyroid E03.9 and Elevat ed liver enzymes R74.8 [place] [id number] [place] [address] March, Type 2 diabetes mellitus wit h [...] major depressive disorder, in partial remission F33.41 [place] [address] [address] Feb, Chronic pain G89.29 [place] [address] [address] Feb, Type 2 diabetes mellitus wit h hyperglycemia E11.65 and Skin lesion of scalp L98.[address] [address] Feb, [place] [address] [address] Jan, Type 2 diabetes mellitus wit h hyperglycemia E11.65 ; pediatric dietician current use of insulin Z79.4 ; Essential (primary) hypertension I10 ; Pulmonary emphysema, unspecified emphysema type J43.9 ; Chronic pain G89.29 ; Controlled substance agreement signed Z79.899 ; Hypothyroid E03.9 ; Neuropathy G62.9 ; Gastroesophageal reflux disease with esophagitis K21.0 ; Overactive bladder N32.81 ; Depression F32.9 and Irritable bowel syndrome with diarrhea K58.0 [place] [address] [id number] [address] [place] [address] Jan, [place] [address] [facility] [id number] [address] [place] [address] Jan, Controlled substance agreeme nt signed Z79.899 [place] [facility] [id number] [address] [place] [address] 08 Dec, 2017 Type 2 diabetes mellitus wit h hyperglycemia E11.65 ; Controlled substance agreement signed Z79.899 ; group home current use of insulin Z79.4 ; Essential (primary) hypertension I10 ; Hypothyroid E03.9 ; Neuropathy G62.9 ; Depression F32.9 ; Mixed hyperlipidemia E78.2 ; Irritable bowel syndrome with diarrhea K58.0 ; Gastroesophageal reflux disease with esophagitis K21.0 ; Thrombocytosis D47.3 ; Current non-adherence to medical treatment Z91.19 and Overweight (BMI 25.0-29.9) E66.3 [place] [address] [facility] [id number] [address] [place] [address] 02 Dec, 2017 Controlled substance agreeme nt signed Z79.899 [place] [address] [facility] [id number] [address] [place] [address] Nov, Type 2 diabetes mellitus wit h hyperglycemia E11.65 and Current non- adherence to medical treatment Z91.19 [place] [address] [facility] [id number] [address] [place] [address] Nov, [place] [address] [facility] [id number] [address] [place] [address] Nov, Chronic pain G89.29 [place] [address] [facility] [id number] [address] [place] [address] Nov, [place] [address] [facility] [id number] [address] [place] [address] Nov, Hypothyroid E03.9 [place] [address] [facility] [id number] [address] [place] [address] Nov, Hypothyroid E03.9 [place] [facility] [id number] [address] [place] [id number] Nov, Pulmonary emphysema, unspeci fied emphysema type J43.9 and Irritable bowel syndrome with diarrhea K58.0 [facility] [address] [facility] [id number] [address] [place] [address] Oct, [place] [address] [place] [id number] [address] [place] [address] Oct, [place] [address] [facility] [id number] [address] [place] [id number] Oct, [place] [address] [facility] [id number] [address] [place] [address] Oct, [place] [address] [facility] [id number] [address] [place] [address] Oct, Chronic pain G89.29 [place] [id number] [place] [address] Oct, Diabetes mellitus E11.9 ; De pression F32.9 ; Mixed hyperlipidemia E78.2 ; Hypotension, unspecified hypotension type I95.9 ; Pulmonary emphysema, unspecified emphysema type J43.9 and Weight loss, unintentional R63.4 [place] [address] [place] [id number] [address] [place] [address] Oct, Chronic pain G89.29 [place] [address] [place] [id number] [address] [place] [address] Sep, Chronic pain G89.29 [place] [address] [place] [id number] [address] [place] [address] Sep, Hypothyroid E03.9 and Diabet es mellitus E11.9 [place] [address] [facility] [id number] [address] [place] [address] Aug, Type 2 diabetes mellitus wit h hyperglycemia E11.65 ; pediatric dietician current use of insulin Z79.4 ; Essential (primary) hypertension I10 ; Hypothyroid E03.9 ; Neuropathy G62.9 ; Chronic pain G89.29 ; Mixed hy perlipidemia E78.2 and Encounter for immunization Z23 [facility] [address] [place] [id number] [place] [address] Aug, Chronic pain G89.29 [facility] [address] [place] [id number] [place] [address] Aug, Overactive bladder N32.81 ; Diabetes mellitus E11.9 and Chronic pain G89.29 [facility] [address] [place] [id number] [address] [place] [address] Jul, [facility] [address] [place] [id number] [place] [id number] Jun, [facility] [address] [place] [id number] [place] [address] Jun, [facility] [address] [address] Jun, Hypothyroid E03.9 [facility] [address] [place] [id number] [place] [address] Jun, Diabetes mellitus E11.9 ; Hy pothyroid E03.9 ; Neuropathy G62.9 ; Chronic pain G89.29 and Neck mass R22.1 [facility] [address] [address] Apr, [facility] [address] [place] [id number] [place] [address] Apr, Acute cystitis without hemat uria N30.00 [facility] [address] [place] [id number] [address] [place] [id number] March, [facility] [address] [place] [id number] [place] [address] March, [facility] [address] [place] [id number] [place] [address] March, Near syncope R55 [facility] [address] [place] [id number] [address] [place] [address] Feb, [facility] [address] [place] [id number] [address] [place] [address] Feb, Chronic pain G89.29 [facility] [address] [place] [id number] [address] [place] [id number] Feb, [facility] [address] [address] Feb, [facility] [address] [place] [id number] [address] [place] [address] Jan, Chronic pain G89.29 [facility] [address] [address] Jan, [facility] [address] [address] Jan, [facility] [address] [address] Jan, Diabetes mellitus E11.9 ; Hy pothyroid E03.9 ; GERD (gastroesophageal reflux disease) K21.9 ; Insomnia G47.00 ; Functional diarrhea K59.1 ; Neuropathy G62.9 ; Depression F32.9 ; Chronic pain G89.29 ; Irritable bowel syndrome with diarrhea K58.0 ; Overactive bladder N32.81 ; Mixed hyperlipidemia E78.2 and Bronchitis J40 [facility] [address] [place] [id number] [address] [place] [address] Dec, [facility] [address] [place] [id number] [address] [place] [address] Dec, [facility] [address] [address] Dec, [facility] [address] [place] [id number] [address] [place] [address] Dec, [facility] [address] [address] Dec, Chronic pain G89.29 [facility] [address] [facility] [id number] [address] [place] [address] Dec, [facility] [address] [place] [id number] [address] [place] [address] Dec, [facility] [address] [address] Dec, Type 2 diabetes mellitus wit h foot ulcer E11.621 [place] [address] [place] [id number] [address] [place] [address] Dec, Type 2 diabetes mellitus wit h foot ulcer E11.621 [place] [address] [place] [id number] [address] [place] [address] Dec, HTN (hypertension) I10 ; Dep ression F32.9 ; Type 2 diabetes mellitus with foot ulcer E11.621 ; Functional diarrhea K59.1 ; Irritable bowel syndrome with diarrhea K58.0 ; Chronic pain G89.29 ; Insomnia G47.00 ; Overactive bladder N32.81 ; Mixed hyperlipidemia E78.2 ; Gastroesophageal reflux disease with esophagitis K21.0 and Acquired hypothyroidism E03.9 [place] [place] [id number] [address] [place] [address] Nov, [place] [address] [place] [id number] [address] [place] [address] Oct, [place] [address] [address] Oct, [place] [address] [place] [id number] [address] [place] [address] Oct, [place] [address] [address] Sep, Functional diarrhea K59.1 ; HTN (hypertension) I10 ; Diabetes mellitus E11.9 ; Depression F32.9 ; Overactive bladder N32.81 ; Mixed hyperlipidemia E78.2 ; Gastroesophageal reflux disease without esophagitis K21.9 ; Chronic pain G89.29 ; Insomnia G47.00 and Acquired hypothyroidism E03.9 [place] [address] [address] 04 Sep, 2016 [place] [address] [address] 11 Aug, 2016 Encounter for immunization Z 23 [place] [address] [address] 06 Aug, 2016 [place] [address] [address] Jul, [place] [address] [address] Jun, Type 2 diabetes mellitus wit hout complications E11.9 ; HTN (hypertension) I10 ; Hypothyroid E03.9 ; Neuropathy G62.9 ; Depression F32.9 ; Chronic pain G89.29 ; GERD (gastroesophageal reflux disease) K21.9 ; Insomnia G47.00 ; Overactive bladder N32.81 ; Mixed hyperlipidemia E78.2 ; Diarrhea of infectious origin A09 and Environmental allergies Z91.09 [place] [address] [address] Apr, [place] [address] [address] March, Hypothyroidism, unspecified E03.9 and Mixed hyperlipidemia E78.2 [place] [address] [address] March, Diabetes mellitus E11.9 ; HT N (hypertension) I10 ; Hypothyroid E03.9 ; Depression F32.9 ; Overactive bladder N32.81 ; Other chronic pain G89.29 ; Lumbago with sciatica, unspecified side M54.40 ; Environmental allergies Z91.09 and Gastroesophageal reflux disease, esophagitis presence not specified K21.9 [place] [address] [address] March, [place] [address] [address] Jan, HTN (hypertension) I10 ; Hyp othyroid E03.9 ; Neuropathy G62.9 ; Diabetes mellitus E11.9 ; Chronic pain G89.29 ; GERD (gastroesophageal reflux disease) K21.9 ; Overactive bladder N32.81 and Depression F32.9 [place] [address] [address] 12 Dec, 2015 Ear pain, left H92.02 ; HTN (hypertension) I10 ; Hypothyroid E03.9 ; Neuropathy G62.9 ; Diabetes mellitus E11.9 ; Depression F32.9 ; GERD (gastroesophageal reflux disease) K21.9 ; Insomnia G47.00 and Overactive bladder N32.81 [place] [address] [address] Nov, Overactive bladder N32.81 an d Chronic pain G89.29 [place] [address] [address] Nov, Kidney failure N19 [place] [address] [address] Nov, [place] [address] [address] Nov, [place] [address] [address] Nov, Diabetes mellitus E11.9 ; De pression F32.9 ; Chronic pain G89.29 ; GERD (gastroesophageal reflux disease) K21.9 ; Insomnia G47.00 ; HTN (hypertension) I10 ; Hypothyroid E03.9 ; COPD (chronic obstructive pulmonary disease) J44.9 ; Bladder incontinence R32 and Incontinence R32 [place] [address] [place] [id number] [address] [place] [address] Sep, Type 2 diabetes mellitus wit h foot ulcer E11.621 and Chromosomal abnormality, 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 [place] [address] [address] Sep, [place] [address] [address] Aug, [place] [address] [address] Aug, [place] [address] [address] Aug, HTN (hypertension) I10 ; Enc ounter for immunization Z23 ; Hypothyroid E03.9 ; Neuropathy G62.9 ; Diabetes mellitus E11.9 ; Depression F32.9 ; Chronic pain G89.29 ; GERD (gastroesophageal reflux disease) K21.9 ; Insomnia G47.00 and COPD (chronic obstructive pulmonary disease) J44.[address] [address] Jun, [place] [address] [address] Jun, [place] [address] [address] May, Essential hypertension, ivis gn 401.1 ; Unspecified hypothyroidism 244.9 ; Insomnia, unspecified 780.52 ; Shortness of breath 786.05 ; Depression 311 ; COPD (chronic obstructive pulmonary disease) 496 ; GERD (gastroesophageal reflux disease) 530.81 and Diabetes 1.5, 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 [place] [address] [address] May, [place] [address] [address] May, [place] [address] [address] May, Shortness of breath 786.05 ; Essential hypertension, benign 401.1 ; Diabetes mellitus 250.00 ; Hyperlipidemia 272.4 ; Hypothyroid 244.9 ; Insomnia 780.52 and Cough 786.2 [facility] [address] [id number] [address] [place] [address] Apr, [facility] [address] [id number] [address] [place] [address] March, Shortness of breath 786.05 ; Nausea with vomiting 787.01 ; Essential hypertension, benign 401.1 ; Diabetes mellitus 250.00 ; Hyperlipidemia 272.4 and Hypothyroid 244.9 [facility] [address] [id number] [address] [place] [address] Feb, [facility] [address] [id number] [address] [place] [id number] Feb, [facility] [address] [facility] [id number] [address] [place] [address] Jan, [facility] [address] [facility] [id number] [address] [place] [id number] Jan, [facility] [address] [facility] [id number] [address] [place] [id number] Jan, [facility] [address] [id number] [address] [place] [id number] Jan, [facility] [address] [facility] [id number] [address] [place] [id number] Jan, [facility] [address] [facility] [id number] [address] [place] [id number] Jan, [facility] [address] [id number] [address] [place] [id number] Jan, [facility] [address] [id number] [address] [place] [id number] Jan, [facility] [address] [facility] [id number] [address] [place] [id number] Jan, [facility] [address] [facility] [id number] [address] [place] [id number] Jan, [facility] [address] [id number] [address] [place] [address], [place] [address] Dec, 2014 [facility] [address] [id number] [address] [place] [address], [place] [address] Dec, 2014 [facility] [address] [id number] [address] [place] [address], [place] [address] Dec, 2014 [facility] [address] [id number] [address] [place] [address], [place] [address] Dec, 2014 [facility] [address] [id number] [address] [place] [address], [place] [address] Dec, 2014 [facility] [address] [id number] [address] [place] [address], [place] [id number] Dec, 2014 [facility] [address] [id number] [address] [place] [address], [place] [id number] Dec, 2014 [facility] [address] [id number] [address] [place] [address], [place] [id number] Dec, 2014 [facility] [address] [id number] [address] [place] [address], [place] [address] Dec, 2014 [facility] [address] [id number] [address] [place] [address], [place] [address] Dec, 2014 [facility] [address] [id number] [address] [place] [address], [place] [address] Oct, [facility] [address] [id number] [address] [place] [id number] Oct, [facility] [address] [id number] [address] [place] [address], [place] [address] Oct, [facility] [address] [id number] [address] [place] [address], [place] [address] Oct, [facility] [address] [id number] [address] [place] [id number] Oct, [facility] [address] [id number] [address] [place] [address], [place] [id number] 08 Oct, 2014 [facility] [address] [id number] [address] [place] [address], [place] [id number] 05 Oct, 2014 [facility] [address] [id number] [address] [place] [address], [place] [id number] 05 Oct, 2014 [facility] [address] [id number] [address] [place] [address], [place] [address] Oct, [facility] [address] [id number] [address] [place] [address], [place] [address] Oct, [facility] [address] [id number] [address] [place] [address], [place] [address] Oct, [facility] [address] [id number] [address] [place] [address], [place] [address] Oct, [facility] [address] [id number] [address] [place] [address], [place] [address] Oct, [facility] [address] [id number] [address] [place] [address], [place] [address] Oct, [facility] [address] [id number] [address] [place] [address], [place] [address] Sep, [facility] [address] [id number] [address] [place] [address], [place] [address] Sep, [facility] [address] [id number] [address] [place] [address], [place] [address] Sep, [facility] [address] [id number] [address] [place] [address], [place] [address] Sep, [facility] [address] [id number] [address] [place] [address], [place] [address] Sep, [facility] [address] [id number] [address] [place] [address], [place] [address] Sep, [facility] [address] [id number] [address] [place] [address], [place] [address] Sep, [facility] [address] [id number] [address] [place] [address], [place] [address] Sep, [facility] [address] [id number] [address] [place] [address], [place] [address] Sep, [facility] [address] [id number] [address] [place] [address], [place] [address] Aug, [facility] [address] [id number] [address] [place] [address], [place] [address] Aug, [facility] [address] [id number] [address] [place] [address], [place] [address] Aug, [facility] [address] [id number] [address] [place] [address], [place] [address] 17 Aug, 2014 [facility] [address] [id number] [address] [place] [address], [place] [address] 16 Aug, 2014 [facility] [address] [id number] [address] [place] [address], [place] [address] Aug, [facility] [address] [id number] [address] [place] [address], [place] [address] Aug, [facility] [address] [id number] [address] [place] [address], [place] [address] Aug, [facility] [address] [id number] [address] [place] [address], [place] [address] Aug, [facility] [address] [id number] [address] [place] [address], [place] [address] 29 Jul, 2014 [facility] [address] [id number] [address] [place] [address], [place] [address] 29 Jul, 2014 [facility] [address] [id number] [address] [place] [address], [place] [address] 25 Jul, 2014 [facility] [address] [id number] [address] [place] [address], [place] [address] 25 Jul, 2014 [facility] [address] [id number] [address] [place] [address], [place] [address] Jul, [facility] [address] [id number] [facility] [place] [address] Jul, [facility] [address] [id number] [facility] [place] [address] Jul, [facility] [address] [id number] [facility] [place] [address] Jul, [facility] [address] [id number] [address] [place] [address], [place] [address] Jul, [facility] [address] [id number] [address] [place] [address], [place] [address] Jul, [facility] [address] [id number] [address] [place] [address], [place] [address] Jun, [facility] [address] [id number] [address] [place] [address], [place] [address] Jun, [facility] [address] [id number] [address] [place] [address], [place] [address] Jun, [facility] [address] [id number] [address] [place] [address], [place] [address] Jun, [facility] [address] [id number] [address] [place] [address], [place] [address] Jun, [facility] [address] [id number] [address] [place] [address], [place] [address] Jun, [facility] [address] [id number] [address] [place] [address], [place] [address] Jun, [facility] [address] [id number] [address] [place] [address], [place] [address] Jun, [facility] [address] [id number] [address] [place] [address], [place] [address] Jun, [facility] [address] [id number] [address] [place] [address], [place] [address] Jun, [facility] [address] [id number] [address] [place] [address], [place] [address] Jun, [facility] [address] [id number] [address] [place] [address], [place] [address] Jun, [facility] [address] [id number] [address] [place] [address], [place] [address] May, [facility] [address] [id number] [address] [place] [address], [place] [address] May, [facility] [address] [id number] [address] [place] [address], [place] [address] May, [facility] [address] [id number] [address] [place] [address], [place] [address] May, [facility] [address] [id number] [address] [place] [address], [place] [address] May, [facility] [address] [id number] [address] [place] [address], [place] [address] May, [facility] [address] [id number] [address] [place] [address], [place] [address] March, [facility] [address] [id number] [address] [place] [address], [place] [address] March, [facility] [address] [id number] [address] [place] [address], [place] [address] March, [facility] [address] [id number] [address] [place] [address], [place] [address] March, [facility] [address] [id number] [address] [place] [address], [place] [address] March, [facility] [address] [id number] [address] [place] [address], [place] [address] March, [facility] [address] [id number] [address] [place] [address], [place] [address] Feb, [facility] [address] [id number] [address] [place] [address], [place] [address] Feb, [facility] [address] [id number] [facility] [place] [address] Feb, [facility] [address] [id number] [facility] [place] [address] Feb, [facility] [address] [id number] [facility] [place] [address] Jan, [facility] [address] [id number] [address] [place] [address], [place] [address] Jan, [facility] [address] [id number] [address] [place] [address], [place] [address] Jan, [facility] [address] [id number] [address] [place] [address], [place] [address] Jan, [facility] [address] [id number] [address] [place] [address], [place] [address] Jan, [facility] [address] [id number] [address] [place] [address], [place] [address] Jan, [facility] [address] [id number] [address] [place] [address], [place] [address] Jan, [facility] [address] [id number] [address] [place] [address], [place] [address] Jan, [facility] [address] [id number] [address] [place] [address], [place] [address] Jan, [facility] [address] [id number] [address] [place] [address], [place] [address] Jan, [facility] [address] [id number] [address] [place] [address], [place] [address] Jan, [facility] [address] [id number] [address] [place] [address], [place] [address] Jan, [facility] [address] [id number] [address] [place] [address], [place] [address] Dec, [facility] [address] [id number] [address] [place] [address], [place] [address] Dec, [facility] [address] [id number] [address] [place] [address], [place] [address] Dec, [facility] [address] [id number] [address] [place] [address], [place] [address] Dec, [facility] [address] [id number] [address] [place] [address], [place] [address] Dec, [facility] [address] [id number] [address] [place] [address], [place] [address] Dec, [facility] [address] [id number] [address] [place] [address], [place] [address] Nov, [facility] [address] [id number] [address] [place] [address], [place] [address] Nov, [facility] [address] [id number] [address] [place] [address], [place] [address] Oct, [facility] [address] [id number] [address] [place] [address], [place] [address] Oct, [facility] [address] [id number] [address] [place] [address], [place] [address] Oct, [facility] [address] [id number] [address] [place] [address], [place] [address] Oct, [facility] [address] [id number] [address] [place] [address], [place] [address] Oct, [facility] [address] [id number] [address] [place] [address], [place] [address] Oct, [facility] [address] [id number] [address] [place] [address], [place] [address] Sep, [facility] [address] [id number] [address] [place] [address], [place] [address] Sep, [facility] [address] [id number] [address] [place] [address], [place] [address] Sep, [facility] [address] [id number] [address] [place] [address], [place] [address] Sep, [facility] [address] [id number] [address] [place] [address], [place] [address] Aug, [facility] [address] [id number] [address] [place] [address], [place] [address] Aug, [facility] [address] [id number] [address] [place] [address], [place] [address] Aug, [facility] [address] [id number] [address] [place] [address], [place] [address] 17 Jul, 2013 [facility] [address] [id number] [address] [place] [address], [place] [address] 14 Jul, 2013 [facility] [address] [id number] [address] [place] [address], [place] [address] Jul, [facility] [address] [id number] [address] [place] [address], [place] [address] Jun, [facility] [address] [id number] [address] [place] [address], [place] [address] Jun, [facility] [address] [id number] [address] [place] [address], [place] [address] Jun, [facility] [address] [id number] [address] [place] [address], [place] [address] Apr, [facility] [address] [id number] [address] [place] [address], [place] [address] Apr, [facility] [address] [id number] [address] [place] [address], [place] [address] March, [facility] [address] [id number] [address] [place] [address], [place] [address] March, [facility] [address] [id number] [address] [place] [address], [place] [address] March, [facility] [address] [id number] [address] [place] [address], [place] [address] March, [facility] [address] [id number] [address] [place] [address], [place] [address] Feb, [facility] [address] [id number] [address] [place] [address], [place] [address] Jan, [facility] [address] [id number] [address] [place] [address], [place] [address] 13 Dec, 2012 [facility] [address] [id number] [address] [place] [address], [place] [address] 08 Dec, 2012 [facility] [address] [id number] [address] [place] [address], [place] [address] Dec, [facility] [address] [id number] [address] [place] [address], [place] [address] Nov, [facility] [address] [id number] [address] [place] [address], [place] [address] Oct, [facility] [address] [id number] [address] [place] [address], [place] [address] Oct, [facility] [address] [id number] [address] [place] [address], [place] [address] Sep, [facility] [address] [id number] [address] [place] [address], [place] [address] Sep, [facility] [address] [id number] [address] [place] [address], [place] [address] Sep, [facility] [address] [id number] [address] [place] [address], [place] [address] Sep, [facility] [address] [id number] [address] [place] [address], [place] [address] Sep, [facility] [address] [id number] [address] [place] [address], [place] [address] Sep, [facility] [address] [id number] [address] [place] [address], [place] [address] Sep, [facility] [address] [id number] [address] [place] [address], [place] [address] 16 Aug, 2012 [facility] [address] [id number] [address] [place] [address], [place] [address] 16 Aug, 2012 [facility] [address] [id number] [address] [place] [address], [place] [address] 10 Aug, 2012 [facility] [address] [id number] [address] [place] [address], [place] [address] 10 Aug, 2012 [facility] [address] [id number] [address] [place] [address], [place] [address] 08 Aug, 2012 [facility] [address] [id number] [address] [place] [address], [place] [address] Aug, [facility] [address] [id number] [address] [place] [address], [place] [address] Aug, [facility] [address] [id number] [address] [place] [address], [place] [address] Aug, [facility] [address] [id number] [address] [place] [address], [place] [address] Jul, [facility] [address] [id number] [address] [place] [address], [place] [address] Jul, [facility] [address] [id number] [address] [place] [address], [place] [address] Jun, [facility] [address] [id number] [address] [place] [address], [place] [address] May, [facility] [address] [id number] [address] [place] [address], [place] [address] Apr, [facility] [address] [id number] [address] [place] [address], [place] [address] Apr, [facility] [address] [id number] [address] [place] [address], [place] [id number] Apr, [facility] [address] [id number] [address] [place] [address], [place] [id number] March, [facility] [address] [id number] [address] [place] [address], [place] [id number] March, [facility] [address] [id number] [address] [place] [address], [place] [id number] March, [facility] [address] [id number] [address] [place] [address], [place] [id number] March, [facility] [address] [id number] [address] [place] [address], [place] [id number] March, [facility] [address] [id number] [address] [place] [address], [place] [id number] March, [facility] [address] [id number] [address] [place] [address], [place] [id number] March, [facility] [address] [id number] [address] [place] [address], [place] [id number] Jan, [facility] [address] [id number] [address] [place] [address], [place] [id number] Jan, [facility] [address] [id number] [address] [place] [address], [place] [phone] Jan, [facility] [address] [id number] [address] [place] [address], [place] [phone] Jan, [facility] [address] [id number] [address] [place] [address], [place] [id number] Jan, [facility] [address] [id number] [address] [place] [address], [place] [phone] Dec, [facility] [address] [id number] [address] [place] [address], [place] [id number] Dec, [facility] [address] [id number] [address] [place] [address], [place] [id number] Nov, [facility] [address] [id number] [address] [place] [address], [place] [id number] Nov, [facility] [address] [id number] [address] [place] [address], [place] [id number] 06 Nov, 2011 [facility] [address] [id number] [address] [place] [address], [place] [id number] Nov, [facility] [address] [id number] [address] [place] [address], [place] [id number] Oct, [facility] [address] [id number] [address] [place] [address], [place] [id number] Oct, [facility] [address] [id number] [address] [place] [address], [place] [id number] 14 Sep, 2011 [facility] [address] [id number] [address] [place] [address], [place] [id number] Sep, [facility] [address] [id number] [address] [place] [address], [place] [id number] Sep, [facility] [address] [id number] [address] [place] [address], [place] [id number] May, [facility] [address] [id number] [address] [place] [address], [place] [id number] Nov, [facility] [address] [id number] [address] [place] [address], [place] [id number] Oct, [facility] [address] [id number] [address] [place] [address], [place] [id number] Oct, [facility] [address] [id number] [address] [place] [address], [place] [id number] Oct, [facility] [address] [id number] [address] [place] [address], [place] [id number] 15 Sep, 2010 [facility] [address] [id number] [address] [place] [address], [place] [id number] Sep, [facility] [address] [id number] [address] [place] [address], [place] [id number] Aug, [facility] [address] [id number] [address] [place] [address], [place] [id number] March, [facility] [address] [id number] [address] [place] [id number] Oct, [facility] [address] [id number] [address] [place] [id number] Oct, [facility] [address] [id number] [address] [place] [id number] Oct, [facility] [address] [id number] [address] [place] [id number] Oct, [facility] [address] [id number] [address] [place] [id number] Sep, [facility] [address] [id number] [address] [place] [id number] Sep, [facility] [address] [id number] [address] [place] [id number] Sep, [facility] [address] [id number] [address] [place] [id number] Aug, [facility] [address] [id number] [address] [place] [id number] Aug, [facility] [address] [id number] [address] [place] [id number] Aug, [facility] [address] [id number] [address] [place] [id number] Jan, IMMUNIZATIONS No Known Immunizations SOCIAL HISTORY [...]
--- OUTSIDE RECORDS SUMMARY | 2020-06-13 16:47 | XMS REPORT ---
Author Author Jah Durant Doctor Organization [facility] Address Unknown Phone Unavailable Care Team Providers Care Blast Furnace Checker Name Role Phone Migration, Doctor Unavailable Unavailable PROBLEMS Type Condition ICD9-CM Code ASI11-VP Code Onset Dates Condition S tatus SNOMED Code Problem Neuropathy G62.9 Active 490783765 Problem Chronic pain G89.29 Active 2654908 1 Problem Overactive bladder N32.81 Active 2 57507620 Problem Hypothyroid E03.9 Active 03020394 Problem Irritable bowel syndrome with diarrhea K58.0 Active 518266289 Problem prison current use of insulin Z79.4 Active 337498512 Problem Type 2 diabetes mellitus with hyperglycemia E11.65 Active 83458406 Problem Chronic obstructive pulmonary disease, unspecified COPD ty pe J44.9 Active 36186107 Problem Gastroesophageal reflux disease with esophagitis K 21.0 Active 284859319 Problem Major depressive disorder, recurrent, in full remission F33.42 Active 88744452 Problem Mixed hyperlipidemia E78.2 Active 476147179 Problem Essential (primary) hypertension I10 Active 55719259 Problem Anxiety disorder, unspecified type F41.9 Active 536135946 Problem Gastroparesis K31.84 Active 106735 006 Problem 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 Active 629435424 ALLERGIES No Information ENCOUNTERS Encounter Location Date Diagnosis [place] [address] [address] [facility] [id number] [address] [place] [address] Jun, Encounter for Medicare annua l wellness exam Z00.00 ; Type 2 diabetes mellitus with hyperglycemia E11.65 ; Mixed hyperlipidemia E78.2 ; Hypothyroid E03.9 ; Gastroesophageal reflux disease with esophagitis K21.0 ; Essential (primary) hypertension I10 ; Major depressive disorder, recurrent, in full remission F33.42 ; Chronic obstructive pulmonary disease, unspecified COPD type J44.9 ; Neuropathy G62.9 and Encounter for immunization Z23 [place] [facility] [id number] [address] [place] [address] Jun, Irritable bowel syndrome wit h diarrhea K58.0 [facility] [address] [id number] [address] [place] [address] May, Chronic pain G89.29 [facility] [address] [id number] [address] [place] [address] May, Type 2 diabetes mellitus wit h hyperglycemia E11.65 and Neuropathy G62.9 [facility] [address] [id number] [address] [place] [address] May, Chronic pain G89.29 [facility] [address] [id number] [address] [place] [address] Apr, Poison maryam dermatitis L23.7 [facility] [address] [facility] [id number] [address] [place] [address] Apr, Chronic pain G89.29 [facility] [address] [id number] [address] [place] [address] March, Type 2 diabetes mellitus wit h hyperglycemia E11.65 [facility] [address] [facility] [id number] [address] [place] [address] March, Chronic pain G89.29 [facility] [address] [facility] [id number] [address] [place] [address] March, [address] [address] Feb, [facility] [address] [id number] [address] [place] [address] Feb, Other chronic pain G89.29 an d Chronic pain G89.29 [facility] [address] [id number] [address] [place] [address] Jan, Mixed hyperlipidemia E78.2 [facility] [address] [id number] [address] [place] [address] Jan, Chronic pain G89.29 [facility] [address] [facility] [id number] [address] [place] [address] Jan, Type 2 diabetes mellitus wit h hyperglycemia E11.65 ; Mixed hyperlipidemia E78.2 ; prison current use of insulin Z79.4 ; Acquired hypothyroidism E03.9 and Essential (primary) hypertension I10 [facility] [address] [facility] [id number] [address] [place] [address] 11 Dec, 2018 Chronic pain G89.29 [place] [address] [address] [facility] [id number] [address] [place] [address] Nov, Chronic pain G89.29 [place] [address] [address] [facility] [id number] [address] [place] [address] Nov, [place] [address] [address] [facility] [id number] [address] [place] [address] Oct, Chronic pain G89.29 [place] [address] [address] [place] [id number] [address] [place] [address] Oct, [place] [address] [address] [facility] [id number] [address] [place] [address] Sep, [place] [address] [address] [facility] [id number] [address] [place] [address] Sep, Type 2 diabetes mellitus wit h hyperglycemia E11.65 [place] [address] [address] [facility] [id number] [address] [place] [address] 16 Sep, 2018 Chronic pain G89.29 [place] [address] [address] [place] [id number] [address] [place] [address] Sep, [place] [address] [address] [facility] [id number] [address] [place] [address] Sep, Type 2 diabetes mellitus wit h hyperglycemia E11.65 ; Irritable bowel syndrome with diarrhea K58.0 ; Gastroparesis K31.84 ; 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 and Dermatitis L30.9 [place] [address] [address] [facility] [id number] [address] [place] [id number] Aug, Chronic pain G89.29 [place] [address] [address] [facility] [id number] [address] [place] [address] Jul, Chronic pain G89.29 [place] [address] [address] [place] [id number] [address] [place] [address] Jun, Type 2 diabetes mellitus wit h hyperglycemia E11.65 ; Neuropathy G62.9 ; Recurrent major depressive disorder, in partial remission F33.41 ; Chronic pain G89.29 and Hypertriglyceridemia E78.1 [place] [address] [address] [facility] [id number] [address] [place] [phone] Jun, Hypothyroid E03.9 [place] [address] [address] [facility] [id number] [place] [address] Jun, Major depressive disorder, r ecurrent episode, moderate F33.1 and Anxiety disorder, unspecified type F41.9 [place] [address] [address] [place] [id number] [address] [place] [phone] Jun, [place] [address] [address] [place] [id number] [address] [place] [address] Jun, Type 2 diabetes mellitus wit h hyperglycemia E11.65 ; 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.4 ; Recurrent major depressive disorder, in partial remission F33.41 ; Hypothyroid E03.9 ; Candidal dermatitis B37.2 and Weakness generalized R53.1 [place] [id number] [address] [place] [address] May, [place] [address] [address] [place] [id number] [address] [place] [phone] May, [place] [address] [address] [place] [id number] [address] [place] [address] May, [place] [address] [address] [place] [id number] [address] [place] [address] May, Generalized abdominal pain R 10.84 and Candidal dermatitis B37.2 [place] [address] [address] [place] [id number] [address] [place] [address] May, [place] [address] [facility] [id number] [address] [place] [address] May, [place] [address] [address] [facility] [id number] [address] [place] [address] May, Nodular radiologic density R 93.8 ; Weight loss, unintentional R63.4 and Pulmonary emphysema, unspecified emphysema type J43.9 [place] [address] [address] [facility] [id number] [address] [place] [address] May, Chronic pain G89.29 [place] [address] [address] [facility] [id number] [address] [place] [address] 09 May, 2018 Syncope and collapse R55 ; C hronic fatigue R53.[address] lung screening R91.8 [place] [address] [address] [facility] [id number] [address] [place] [address] May, [place] [address] [address] [facility] [id number] [address] [place] [address] Apr, Chronic fatigue R53.82 ; Abn ormal chest CT R93.8 ; Elevated erythrocyte sedimentation rate R70.0 ; Hypothyroid E03.9 and Recurrent major depressive disorder, in partial remission F33.41 [place] [address] [address] [facility] [id number] [address] [place] [address] Apr, Hypothyroid E03.9 [place] [address] [address] [facility] [id number] [address] [place] [address] Apr, Depression F32.9 [place] [address] [address] [facility] [id number] [address] [place] [address] Apr, [place] [address] [address] [facility] [id number] [address] [place] [address] March, [place] [address] [address] [facility] [id number] [address] [place] [address] March, Hypothyroid E03.9 [place] [address] [address] [facility] [id number] [address] [place] [address] March, Diabetes mellitus E11.9 and Hypothyroid E03.9 [place] [address] [address] [place] [address] March, Diabetes mellitus E11.9 [place] [address] [id number] [place] [address] March, Hypothyroid E03.9 and Elevat ed liver enzymes R74.8 [place] [id number] [place] [address] March, Type 2 diabetes mellitus wit h [...] major depressive disorder, in partial remission F33.41 [place] [address] [address] Feb, Chronic pain G89.29 [place] [address] [address] Feb, Type 2 diabetes mellitus wit h hyperglycemia E11.65 and Skin lesion of scalp L98.[address] [address] Feb, [place] [address] [address] Jan, Type 2 diabetes mellitus wit h hyperglycemia E11.65 ; 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.4 ; Essential (primary) hypertension I10 ; Pulmonary emphysema, unspecified emphysema type J43.9 ; Chronic pain G89.29 ; Controlled substance agreement signed Z79.899 ; Hypothyroid E03.9 ; Neuropathy G62.9 ; Gastroesophageal reflux disease with esophagitis K21.0 ; Overactive bladder N32.81 ; Depression F32.9 and Irritable bowel syndrome with diarrhea K58.0 [place] [address] [id number] [address] [place] [address] Jan, [place] [address] [address] [facility] [id number] [address] [place] [address] Jan, Controlled substance agreeme nt signed Z79.899 [place] [facility] [id number] [address] [place] [address] 08 Dec, 2017 Type 2 diabetes mellitus wit h hyperglycemia E11.65 ; Controlled substance agreement signed Z79.899 ; prison current use of insulin Z79.4 ; Essential (primary) hypertension I10 ; Hypothyroid E03.9 ; Neuropathy G62.9 ; Depression F32.9 ; Mixed hyperlipidemia E78.2 ; Irritable bowel syndrome with diarrhea K58.0 ; Gastroesophageal reflux disease with esophagitis K21.0 ; Thrombocytosis D47.3 ; Current non-adherence to medical treatment Z91.19 and Overweight (BMI 25.0-29.9) E66.3 [place] [address] [address] [facility] [id number] [address] [place] [address] 02 Dec, 2017 Controlled substance agreeme nt signed Z79.899 [place] [address] [address] [facility] [id number] [address] [place] [address] Nov, Type 2 diabetes mellitus wit h hyperglycemia E11.65 and Current non- adherence to medical treatment Z91.19 [place] [address] [address] [facility] [id number] [address] [place] [address] Nov, [place] [address] [address] [facility] [id number] [address] [place] [address] Nov, Chronic pain G89.29 [place] [address] [address] [facility] [id number] [address] [place] [address] Nov, [place] [address] [address] [facility] [id number] [address] [place] [address] Nov, Hypothyroid E03.9 [place] [address] [address] [facility] [id number] [address] [place] [address] Nov, Hypothyroid E03.9 [place] [facility] [id number] [address] [place] [address] Nov, Pulmonary emphysema, unspeci fied emphysema type J43.9 and Irritable bowel syndrome with diarrhea K58.0 [facility] [address] [facility] [id number] [address] [place] [address] Oct, [place] [address] [address] [place] [id number] [address] [place] [address] Oct, [place] [address] [address] [facility] [id number] [address] [place] [address] Oct, [place] [address] [address] [facility] [id number] [address] [place] [address] Oct, [place] [address] [address] [facility] [id number] [address] [place] [address] Oct, Chronic pain G89.29 [place] [address] [address] [place] [address] Oct, Diabetes mellitus E11.9 ; De pression F32.9 ; Mixed hyperlipidemia E78.2 ; Hypotension, unspecified hypotension type I95.9 ; Pulmonary emphysema, unspecified emphysema type J43.9 and Weight loss, unintentional R63.4 [place] [address] [address] [place] [id number] [address] [place] [address] Oct, Chronic pain G89.29 [place] [address] [address] [place] [id number] [address] [place] [address] Sep, Chronic pain G89.29 [place] [address] [address] [place] [id number] [address] [place] [address] Sep, Hypothyroid E03.9 and Diabet es mellitus E11.9 [place] [address] [address] [facility] [id number] [address] [place] [address] Aug, Type 2 diabetes mellitus wit h hyperglycemia E11.65 ; 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.4 ; Essential (primary) hypertension I10 ; Hypothyroid E03.9 ; Neuropathy G62.9 ; Chronic pain G89.29 ; Mixed hy perlipidemia E78.2 and Encounter for immunization Z23 [facility] [address] [place] [id number] [place] [address] Aug, Chronic pain G89.29 [facility] [address] [place] [id number] [place] [address] Aug, Overactive bladder N32.81 ; Diabetes mellitus E11.9 and Chronic pain G89.29 [facility] [address] [place] [id number] [address] [place] [phone] Jul, [facility] [address] [place] [id number] [place] [address] Jun, [facility] [address] [place] [id number] [place] [address] Jun, [facility] [address] [address] Jun, Hypothyroid E03.9 [facility] [address] [place] [id number] [place] [address] Jun, Diabetes mellitus E11.9 ; Hy pothyroid E03.9 ; Neuropathy G62.9 ; Chronic pain G89.29 and Neck mass R22.1 [facility] [address] [address] Apr, [facility] [address] [place] [id number] [place] [address] Apr, Acute cystitis without hemat uria N30.00 [facility] [address] [place] [id number] [address] [place] [phone] March, [facility] [address] [place] [id number] [place] [address] March, [facility] [address] [place] [id number] [place] [address] March, Near syncope R55 [facility] [address] [place] [id number] [address] [place] [address] Feb, [facility] [address] [place] [id number] [address] [place] [address] Feb, Chronic pain G89.29 [facility] [address] [place] [id number] [address] [place] [address] Feb, [facility] [address] [address] Feb, [facility] [address] [place] [id number] [address] [place] [address] Jan, Chronic pain G89.29 [facility] [address] [address] Jan, [facility] [address] [address] Jan, [facility] [address] [address] Jan, Diabetes mellitus E11.9 ; Hy pothyroid E03.9 ; GERD (gastroesophageal reflux disease) K21.9 ; Insomnia G47.00 ; Functional diarrhea K59.1 ; Neuropathy G62.9 ; Depression F32.9 ; Chronic pain G89.29 ; Irritable bowel syndrome with diarrhea K58.0 ; Overactive bladder N32.81 ; Mixed hyperlipidemia E78.2 and Bronchitis J40 [facility] [address] [place] [id number] [address] [place] [address] Dec, [facility] [address] [place] [id number] [address] [place] [address] Dec, [facility] [address] [address] Dec, [facility] [address] [place] [id number] [address] [place] [address] Dec, [facility] [address] [address] Dec, Chronic pain G89.29 [facility] [address] [facility] [id number] [address] [place] [address] Dec, [facility] [address] [place] [id number] [address] [place] [address] Dec, [facility] [address] [address] Dec, Type 2 diabetes mellitus wit h foot ulcer E11.621 [place] [address] [place] [id number] [address] [place] [address] Dec, Type 2 diabetes mellitus wit h foot ulcer E11.621 [place] [address] [address] [place] [id number] [address] [place] [address] Dec, HTN (hypertension) I10 ; Dep ression F32.9 ; Type 2 diabetes mellitus with foot ulcer E11.621 ; Functional diarrhea K59.1 ; Irritable bowel syndrome with diarrhea K58.0 ; Chronic pain G89.29 ; Insomnia G47.00 ; Overactive bladder N32.81 ; Mixed hyperlipidemia E78.2 ; Gastroesophageal reflux disease with esophagitis K21.0 and Acquired hypothyroidism E03.9 [place] [address] [place] [id number] [address] [place] [address] Nov, [place] [address] [place] [id number] [address] [place] [address] Oct, [place] [address] [address] Oct, [place] [address] [place] [id number] [address] [place] [address] Oct, [place] [address] [address] Sep, Functional diarrhea K59.1 ; HTN (hypertension) I10 ; Diabetes mellitus E11.9 ; Depression F32.9 ; Overactive bladder N32.81 ; Mixed hyperlipidemia E78.2 ; Gastroesophageal reflux disease without esophagitis K21.9 ; Chronic pain G89.29 ; Insomnia G47.00 and Acquired hypothyroidism E03.9 [place] [address] [address] 04 Sep, 2016 [place] [address] [address] 11 Aug, 2016 Encounter for immunization Z 23 [place] [address] [address] 06 Aug, 2016 [place] [address] [address] Jul, [place] [address] [address] Jun, Type 2 diabetes mellitus wit hout complications E11.9 ; HTN (hypertension) I10 ; Hypothyroid E03.9 ; Neuropathy G62.9 ; Depression F32.9 ; Chronic pain G89.29 ; GERD (gastroesophageal reflux disease) K21.9 ; Insomnia G47.00 ; Overactive bladder N32.81 ; Mixed hyperlipidemia E78.2 ; Diarrhea of infectious origin A09 and Environmental allergies Z91.09 [place] [address] [address] Apr, [place] [address] [address] March, Hypothyroidism, unspecified E03.9 and Mixed hyperlipidemia E78.2 [place] [address] [address] March, Diabetes mellitus E11.9 ; HT N (hypertension) I10 ; Hypothyroid E03.9 ; Depression F32.9 ; Overactive bladder N32.81 ; Other chronic pain G89.29 ; Lumbago with sciatica, unspecified side M54.40 ; Environmental allergies Z91.09 and Gastroesophageal reflux disease, esophagitis presence not specified K21.9 [place] [address] [address] March, [place] [address] [address] Jan, HTN (hypertension) I10 ; Hyp othyroid E03.9 ; Neuropathy G62.9 ; Diabetes mellitus E11.9 ; Chronic pain G89.29 ; GERD (gastroesophageal reflux disease) K21.9 ; Overactive bladder N32.81 and Depression F32.9 [place] [address] [address] 12 Dec, 2015 Ear pain, left H92.02 ; HTN (hypertension) I10 ; Hypothyroid E03.9 ; Neuropathy G62.9 ; Diabetes mellitus E11.9 ; Depression F32.9 ; GERD (gastroesophageal reflux disease) K21.9 ; Insomnia G47.00 and Overactive bladder N32.81 [place] [address] [address] Nov, Overactive bladder N32.81 an d Chronic pain G89.29 [place] [address] [address] Nov, Kidney failure N19 [place] [address] [address] Nov, [place] [address] [address] Nov, [place] [address] [address] Nov, Diabetes mellitus E11.9 ; De pression F32.9 ; Chronic pain G89.29 ; GERD (gastroesophageal reflux disease) K21.9 ; Insomnia G47.00 ; HTN (hypertension) I10 ; Hypothyroid E03.9 ; COPD (chronic obstructive pulmonary disease) J44.9 ; Bladder incontinence R32 and Incontinence R32 [place] [address] [place] [id number] [address] [place] [address] Sep, Type 2 diabetes mellitus wit h foot ulcer E11.621 and Chromosomal abnormality, 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 [place] [address] [address] Sep, [place] [address] [address] Aug, [place] [address] [address] Aug, [place] [address] [address] Aug, HTN (hypertension) I10 ; Enc ounter for immunization Z23 ; Hypothyroid E03.9 ; Neuropathy G62.9 ; Diabetes mellitus E11.9 ; Depression F32.9 ; Chronic pain G89.29 ; GERD (gastroesophageal reflux disease) K21.9 ; Insomnia G47.00 and COPD (chronic obstructive pulmonary disease) J44.[address] [address] Jun, [place] [address] [id number] Jun, [place] [address] [id number] May, Essential hypertension, ivis gn 401.1 ; Unspecified hypothyroidism 244.9 ; Insomnia, unspecified 780.52 ; Shortness of breath 786.05 ; Depression 311 ; COPD (chronic obstructive pulmonary disease) 496 ; GERD (gastroesophageal reflux disease) 530.81 and Diabetes 1.5, 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 [place] [address] [id number] May, [place] [address] [id number] May, [place] [address] [id number] May, Shortness of breath 786.05 ; Essential hypertension, benign 401.1 ; Diabetes mellitus 250.00 ; Hyperlipidemia 272.4 ; Hypothyroid 244.9 ; Insomnia 780.52 and Cough 786.2 [facility] [address] [id number] [address] [place] [id number] Apr, [facility] [address] [id number] [address] [place] [id number] March, Shortness of breath 786.05 ; Nausea with vomiting 787.01 ; Essential hypertension, benign 401.1 ; Diabetes mellitus 250.00 ; Hyperlipidemia 272.4 and Hypothyroid 244.9 [facility] [address] [id number] [address] [place] [id number] Feb, [facility] [address] [id number] [address] [place] [id number] Feb, [facility] [address] [facility] [id number] [address] [place] [id number] Jan, [facility] [address] [facility] [id number] [address] [place] [id number] Jan, [facility] [address] [facility] [id number] [address] [place] [id number] Jan, [facility] [facility] [address] [id number] [address] [place] [address] Jan, [facility] [address] [facility] [id number] [address] [place] [address] Jan, [facility] [address] [facility] [id number] [address] [place] [address] Jan, [facility] [address] [id number] [address] [place] [address] Jan, [facility] [address] [id number] [address] [place] [address] Jan, [facility] [address] [facility] [id number] [address] [place] [address] Jan, [facility] [address] [facility] [id number] [address] [place] [address] Jan, [facility] [address] [id number] [address] [place] [address], [place] [address] Dec, 2014 [facility] [address] [id number] [address] [place] [address], [place] [address] Dec, 2014 [facility] [address] [id number] [address] [place] [address], [place] [address] Dec, 2014 [facility] [address] [id number] [address] [place] [address], [place] [address] Dec, 2014 [facility] [address] [id number] [address] [place] [address], [place] [address] Dec, 2014 [facility] [address] [id number] [address] [place] [address], [place] [address] Dec, 2014 [facility] [address] [id number] [address] [place] [address], [place] [address] Dec, 2014 [facility] [address] [id number] [address] [place] [address], [place] [address] Dec, 2014 [facility] [address] [id number] [address] [place] [address], [place] [address] Dec, 2014 [facility] [address] [id number] [address] [place] [address], [place] [address] Dec, 2014 [facility] [address] [id number] [address] [place] [address], [place] [address] Oct, [facility] [address] [id number] [address] [place] [address] Oct, [facility] [address] [id number] [address] [place] [address], [place] [address] Oct, [facility] [address] [id number] [address] [place] [address], [place] [address] Oct, [facility] [address] [id number] [address] [place] [address] Oct, [facility] [address] [id number] [address] [place] [address], [place] [address] 08 Oct, 2014 [facility] [address] [id number] [address] [place] [address], [place] [address] 05 Oct, 2014 [facility] [address] [id number] [address] [place] [address], [place] [address] 05 Oct, 2014 [facility] [address] [id number] [address] [place] [address], [place] [address] Oct, [facility] [address] [id number] [address] [place] [address], [place] [address] Oct, [facility] [address] [id number] [address] [place] [address], [place] [address] Oct, [facility] [address] [id number] [address] [place] [address], [place] [address] Oct, [facility] [address] [id number] [address] [place] [address], [place] [address] Oct, [facility] [address] [id number] [address] [place] [address], [place] [address] Oct, [facility] [address] [id number] [address] [place] [address], [place] [address] Sep, [facility] [address] [id number] [address] [place] [address], [place] [address] Sep, [facility] [address] [id number] [address] [place] [address], [place] [address] Sep, [facility] [address] [id number] [address] [place] [address], [place] [address] Sep, [facility] [address] [id number] [address] [place] [address], [place] [address] Sep, [facility] [address] [id number] [address] [place] [address], [place] [address] Sep, [facility] [address] [id number] [address] [place] [address], [place] [address] Sep, [facility] [address] [id number] [address] [place] [address], [place] [address] Sep, [facility] [address] [id number] [address] [place] [address], [place] [address] Sep, [facility] [address] [id number] [address] [place] [address], [place] [address] Aug, [facility] [address] [id number] [address] [place] [address], [place] [address] Aug, [facility] [address] [id number] [address] [place] [address], [place] [address] Aug, [facility] [address] [id number] [address] [place] [address], [place] [address] 17 Aug, 2014 [facility] [address] [id number] [address] [place] [address], [place] [address] 16 Aug, 2014 [facility] [address] [id number] [address] [place] [address], [place] [address] Aug, [facility] [address] [id number] [address] [place] [address], [place] [address] Aug, [facility] [address] [id number] [address] [place] [address], [place] [address] Aug, [facility] [address] [id number] [address] [place] [address], [place] [address] Aug, [facility] [address] [id number] [address] [place] [address], [place] [address] 29 Jul, 2014 [facility] [address] [id number] [address] [place] [address], [place] [address] 29 Jul, 2014 [facility] [address] [id number] [address] [place] [address], [place] [address] 25 Jul, 2014 [facility] [address] [id number] [address] [place] [address], [place] [address] 25 Jul, 2014 [facility] [address] [id number] [address] [place] [address], [place] [address] Jul, [facility] [address] [id number] [facility] [place] [address] Jul, [facility] [address] [id number] [facility] [place] [address] Jul, [facility] [address] [id number] [facility] [place] [address] Jul, [facility] [address] [id number] [address] [place] [address], [place] [address] Jul, [facility] [address] [id number] [address] [place] [address], [place] [address] Jul, [facility] [address] [id number] [address] [place] [address], [place] [address] Jun, [facility] [address] [id number] [address] [place] [address], [place] [address] Jun, [facility] [address] [id number] [address] [place] [address], [place] [address] Jun, [facility] [address] [id number] [address] [place] [address], [place] [address] Jun, [facility] [address] [id number] [address] [place] [address], [place] [address] Jun, [facility] [address] [id number] [address] [place] [address], [place] [address] Jun, [facility] [address] [id number] [address] [place] [address], [place] [address] Jun, [facility] [address] [id number] [address] [place] [address], [place] [address] Jun, [facility] [address] [id number] [address] [place] [address], [place] [address] Jun, [facility] [address] [id number] [address] [place] [address], [place] [address] Jun, [facility] [address] [id number] [address] [place] [address], [place] [address] Jun, [facility] [address] [id number] [address] [place] [address], [place] [address] Jun, [facility] [address] [id number] [address] [place] [address], [place] [address] May, [facility] [address] [id number] [address] [place] [address], [place] [address] May, [facility] [address] [id number] [address] [place] [address], [place] [address] May, [facility] [address] [id number] [address] [place] [address], [place] [address] May, [facility] [address] [id number] [address] [place] [address], [place] [address] May, [facility] [address] [id number] [address] [place] [address], [place] [address] May, [facility] [address] [id number] [address] [place] [address], [place] [address] March, [facility] [address] [id number] [address] [place] [address], [place] [address] March, [facility] [address] [id number] [address] [place] [address], [place] [address] March, [facility] [address] [id number] [address] [place] [address], [place] [address] March, [facility] [address] [id number] [address] [place] [address], [place] [address] March, [facility] [address] [id number] [address] [place] [address], [place] [address] March, [facility] [address] [id number] [address] [place] [address], [place] [address] Feb, [facility] [address] [id number] [address] [place] [address], [place] [address] Feb, [facility] [address] [id number] [facility] [place] [address] Feb, [facility] [address] [id number] [facility] [place] [address] Feb, [facility] [address] [id number] [facility] [place] [address] Jan, [facility] [address] [id number] [address] [place] [address], [place] [address] Jan, [facility] [address] [id number] [address] [place] [address], [place] [address] Jan, [facility] [address] [id number] [address] [place] [address], [place] [address] Jan, [facility] [address] [id number] [address] [place] [address], [place] [address] Jan, [facility] [address] [id number] [address] [place] [address], [place] [address] Jan, [facility] [address] [id number] [address] [place] [address], [place] [address] Jan, [facility] [address] [id number] [address] [place] [address], [place] [address] Jan, [facility] [address] [id number] [address] [place] [address], [place] [address] Jan, [facility] [address] [id number] [address] [place] [address], [place] [address] Jan, [facility] [address] [id number] [address] [place] [address], [place] [address] Jan, [facility] [address] [id number] [address] [place] [address], [place] [address] Jan, [facility] [address] [id number] [address] [place] [address], [place] [address] Dec, [facility] [address] [id number] [address] [place] [address], [place] [address] Dec, [facility] [address] [id number] [address] [place] [address], [place] [address] Dec, [facility] [address] [id number] [address] [place] [address], [place] [address] Dec, [facility] [address] [id number] [address] [place] [address], [place] [address] Dec, [facility] [address] [id number] [address] [place] [address], [place] [address] Dec, [facility] [address] [id number] [address] [place] [address], [place] [address] Nov, [facility] [address] [id number] [address] [place] [address], [place] [address] Nov, [facility] [address] [id number] [address] [place] [address], [place] [address] Oct, [facility] [address] [id number] [address] [place] [address], [place] [address] Oct, [facility] [address] [id number] [address] [place] [address], [place] [address] Oct, [facility] [address] [id number] [address] [place] [address], [place] [address] Oct, [facility] [address] [id number] [address] [place] [address], [place] [address] Oct, [facility] [address] [id number] [address] [place] [address], [place] [address] Oct, [facility] [address] [id number] [address] [place] [address], [place] [address] Sep, [facility] [address] [id number] [address] [place] [address], [place] [address] Sep, [facility] [address] [id number] [address] [place] [address], [place] [address] Sep, [facility] [address] [id number] [address] [place] [address], [place] [address] Sep, [facility] [address] [id number] [address] [place] [address], [place] [address] Aug, [facility] [address] [id number] [address] [place] [address], [place] [address] Aug, [facility] [address] [id number] [address] [place] [address], [place] [address] Aug, [facility] [address] [id number] [address] [place] [address], [place] [address] 17 Jul, 2013 [facility] [address] [id number] [address] [place] [address], [place] [address] 14 Jul, 2013 [facility] [address] [id number] [address] [place] [address], [place] [address] Jul, [facility] [address] [id number] [address] [place] [address], [place] [address] Jun, [facility] [address] [id number] [address] [place] [address], [place] [address] Jun, [facility] [address] [id number] [address] [place] [address], [place] [address] Jun, [facility] [address] [id number] [address] [place] [address], [place] [address] Apr, [facility] [address] [id number] [address] [place] [address], [place] [address] Apr, [facility] [address] [id number] [address] [place] [address], [place] [address] March, [facility] [address] [id number] [address] [place] [address], [place] [address] March, [facility] [address] [id number] [address] [place] [address], [place] [address] March, [facility] [address] [id number] [address] [place] [address], [place] [address] March, [facility] [address] [id number] [address] [place] [address], [place] [address] Feb, [facility] [address] [id number] [address] [place] [address], [place] [address] Jan, [facility] [address] [id number] [address] [place] [address], [place] [address] 13 Dec, 2012 [facility] [address] [id number] [address] [place] [address], [place] [address] 08 Dec, 2012 [facility] [address] [id number] [address] [place] [address], [place] [address] Dec, [facility] [address] [id number] [address] [place] [address], [place] [address] Nov, [facility] [address] [id number] [address] [place] [address], [place] [address] Oct, [facility] [address] [id number] [address] [place] [address], [place] [address] Oct, [facility] [address] [id number] [address] [place] [address], [place] [address] Sep, [facility] [address] [id number] [address] [place] [address], [place] [address] Sep, [facility] [address] [id number] [address] [place] [address], [place] [address] Sep, [facility] [address] [id number] [address] [place] [address], [place] [address] Sep, [facility] [address] [id number] [address] [place] [address], [place] [address] Sep, [facility] [address] [id number] [address] [place] [address], [place] [address] Sep, [facility] [address] [id number] [address] [place] [address], [place] [address] Sep, [facility] [address] [id number] [address] [place] [address], [place] [address] 16 Aug, 2012 [facility] [address] [id number] [address] [place] [address], [place] [address] 16 Aug, 2012 [facility] [address] [id number] [address] [place] [address], [place] [address] 10 Aug, 2012 [facility] [address] [id number] [address] [place] [address], [place] [address] 10 Aug, 2012 [facility] [address] [id number] [address] [place] [address], [place] [address] 08 Aug, 2012 [facility] [address] [id number] [address] [place] [address], [place] [address] Aug, [facility] [address] [id number] [address] [place] [address], [place] [address] Aug, [facility] [address] [id number] [address] [place] [address], [place] [address] Aug, [facility] [address] [id number] [address] [place] [address], [place] [address] Jul, [facility] [address] [id number] [address] [place] [address], [place] [address] Jul, [facility] [address] [id number] [address] [place] [address], [place] [address] Jun, [facility] [address] [id number] [address] [place] [address], [place] [address] May, [facility] [address] [id number] [address] [place] [address], [place] [address] Apr, [facility] [address] [id number] [address] [place] [address], [place] [address] Apr, [facility] [address] [id number] [address] [place] [address], [place] [address] Apr, [facility] [address] [id number] [address] [place] [address], [place] [address] March, [facility] [address] [id number] [address] [place] [address], [place] [address] March, [facility] [address] [id number] [address] [place] [address], [place] [address] March, [facility] [address] [id number] [address] [place] [address], [place] [address] March, [facility] [address] [id number] [address] [place] [address], [place] [address] March, [facility] [address] [id number] [address] [place] [address], [place] [address] March, [facility] [address] [id number] [address] [place] [address], [place] [address] March, [facility] [address] [id number] [address] [place] [address], [place] [address] Jan, [facility] [address] [id number] [address] [place] [address], [place] [address] Jan, [facility] [address] [id number] [address] [place] [address], [place] [address] Jan, [facility] [address] [id number] [address] [place] [address], [place] [address] Jan, [facility] [address] [id number] [address] [place] [address], [place] [address] Jan, [facility] [address] [id number] [address] [place] [address], [place] [address] Dec, [facility] [address] [id number] [address] [place] [address], [place] [address] Dec, [facility] [address] [id number] [address] [place] [address], [place] [address] Nov, [facility] [address] [id number] [address] [place] [address], [place] [address] Nov, [facility] [address] [id number] [address] [place] [address], [place] [address] 06 Nov, 2011 [facility] [address] [id number] [address] [place] [address], [place] [address] Nov, [facility] [address] [id number] [address] [place] [address], [place] [address] Oct, [facility] [address] [id number] [address] [place] [address], [place] [address] Oct, [facility] [address] [id number] [address] [place] [address], [place] [address] 14 Sep, 2011 [facility] [address] [id number] [address] [place] [address], [place] [address] Sep, [facility] [address] [id number] [address] [place] [address], [place] [address] Sep, [facility] [address] [id number] [address] [place] [address], [place] [address] May, [facility] [address] [id number] [address] [place] [address], [place] [address] Nov, [facility] [address] [id number] [address] [place] [address], [place] [address] Oct, [facility] [address] [id number] [address] [place] [address], [place] [address] Oct, [facility] [address] [id number] [address] [place] [address], [place] [address] Oct, [facility] [address] [id number] [address] [place] [address], [place] [address] 15 Sep, 2010 [facility] [address] [id number] [address] [place] [address], [place] [address] Sep, [facility] [address] [id number] [address] [place] [address], [place] [address] Aug, [facility] [address] [id number] [address] [place] [address], [place] [address] March, [facility] [address] [id number] [address] [place] [address] Oct, [facility] [address] [id number] [address] [place] [address] Oct, [facility] [address] [id number] [address] [place] [address] Oct, [facility] [address] [id number] [address] [place] [address] Oct, [facility] [address] [id number] [address] [place] [address] Sep, [facility] [address] [id number] [address] [place] [address] Sep, [facility] [address] [id number] [address] [place] [id number] Sep, [facility] [address] [id number] [address] [place] [address] Aug, [facility] [address] [id number] [address] [place] [address] Aug, [facility] [address] [id number] [address] [place] [id number] Aug, [facility] [address] [id number] [address] [place] [id number] Jan, IMMUNIZATIONS No Known Immunizations SOCIAL HISTORY [...]
--- OUTSIDE RECORDS SUMMARY | 2020-06-13 16:48 | XMS REPORT ---
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 Name Role Phone Migration, Doctor Unavailable Unavailable PROBLEMS Type Condition ICD9-CM Code ESM81-VN Code Onset Dates Condition S tatus SNOMED Code Problem Neuropathy G62.9 Active 700870915 Problem Chronic pain G89.29 Active 6865223 1 Problem Overactive bladder N32.81 Active 2 59954576 Problem Hypothyroid E03.9 Active 68100780 Problem Irritable bowel syndrome with diarrhea K58.0 Active 922322215 Problem residential current use of insulin Z79.4 Active 375804118 Problem Type 2 diabetes mellitus with hyperglycemia E11.65 Active 38435122 Problem Chronic obstructive pulmonary disease, unspecified COPD ty pe J44.9 Active 42499961 Problem Gastroesophageal reflux disease with esophagitis K 21.0 Active 381653393 Problem Major depressive disorder, recurrent, in full remission F33.42 Active 66332659 Problem Mixed hyperlipidemia E78.2 Active 661153333 Problem Essential (primary) hypertension I10 Active 72666129 Problem Anxiety disorder, unspecified type F41.9 Active 749303906 Problem Gastroparesis K31.84 Active 665093 006 Problem 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 Active [id number] ALLERGIES No Information ENCOUNTERS Encounter Location Date Diagnosis [place] [address] [address] [facility] [id number] [address] [place] [address] Jun, Encounter for Medicare annua l wellness exam Z00.00 ; Type 2 diabetes mellitus with hyperglycemia E11.65 ; Mixed hyperlipidemia E78.2 ; Hypothyroid E03.9 ; Gastroesophageal reflux disease with esophagitis K21.0 ; Essential (primary) hypertension I10 ; Major depressive disorder, recurrent, in full remission F33.42 ; Chronic obstructive pulmonary disease, unspecified COPD type J44.9 ; Neuropathy G62.9 and Encounter for immunization Z23 [place] [address] [facility] [id number] [address] [place] [address] Jun, Irritable bowel syndrome wit h diarrhea K58.0 [facility] [address] [id number] [address] [place] [address] May, Chronic pain G89.29 [facility] [address] [id number] [address] [place] [address] May, Type 2 diabetes mellitus wit h hyperglycemia E11.65 and Neuropathy G62.9 [facility] [address] [id number] [address] [place] [address] May, Chronic pain G89.29 [facility] [address] [id number] [address] [place] [address] Apr, Poison maryam dermatitis L23.7 [facility] [address] [facility] [id number] [address] [place] [address] Apr, Chronic pain G89.29 [facility] [address] [id number] [address] [place] [address] March, Type 2 diabetes mellitus wit h hyperglycemia E11.65 [facility] [address] [facility] [id number] [address] [place] [address] March, Chronic pain G89.29 [facility] [address] [facility] [id number] [address] [place] [address] March, [address] [address] Feb, [facility] [address] [id number] [address] [place] [address] Feb, Other chronic pain G89.29 an d Chronic pain G89.29 [facility] [address] [id number] [address] [place] [address] Jan, Mixed hyperlipidemia E78.2 [facility] [address] [id number] [address] [place] [address] Jan, Chronic pain G89.29 [facility] [address] [facility] [id number] [address] [place] [address] Jan, Type 2 diabetes mellitus wit h hyperglycemia E11.65 ; Mixed hyperlipidemia E78.2 ; residential current use of insulin Z79.4 ; Acquired hypothyroidism E03.9 and Essential (primary) hypertension I10 [facility] [address] [facility] [id number] [address] [place] [address] 11 Dec, 2018 Chronic pain G89.29 [place] [address] [address] [facility] [id number] [address] [place] [address] Nov, Chronic pain G89.29 [place] [address] [address] [facility] [id number] [address] [place] [address] Nov, [place] [address] [address] [facility] [id number] [address] [place] [address] Oct, Chronic pain G89.29 [place] [address] [place] [id number] [address] [place] [address] Oct, [place] [address] [facility] [id number] [address] [place] [address] Sep, [place] [address] [facility] [id number] [address] [place] [address] Sep, Type 2 diabetes mellitus wit h hyperglycemia E11.65 [place] [address] [facility] [id number] [address] [place] [address] 16 Sep, 2018 Chronic pain G89.29 [place] [address] [place] [id number] [address] [place] [address] Sep, [place] [address] [facility] [id number] [address] [place] [address] Sep, Type 2 diabetes mellitus wit h hyperglycemia E11.65 ; Irritable bowel syndrome with diarrhea K58.0 ; Gastroparesis K31.84 ; 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 and Dermatitis L30.9 [place] [address] [address] [facility] [id number] [address] [place] [address] Aug, Chronic pain G89.29 [place] [address] [facility] [id number] [address] [place] [address] Jul, Chronic pain G89.29 [place] [address] [place] [id number] [address] [place] [address] Jun, Type 2 diabetes mellitus wit h hyperglycemia E11.65 ; Neuropathy G62.9 ; Recurrent major depressive disorder, in partial remission F33.41 ; Chronic pain G89.29 and Hypertriglyceridemia E78.1 [place] [address] [address] [facility] [id number] [address] [place] [address] Jun, Hypothyroid E03.9 [place] [address] [facility] [id number] [place] [address] Jun, Major depressive disorder, r ecurrent episode, moderate F33.1 and Anxiety disorder, unspecified type F41.9 [place] [address] [place] [id number] [address] [place] [address] Jun, [place] [address] [place] [id number] [address] [place] [address] Jun, Type 2 diabetes mellitus wit h hyperglycemia E11.65 ; toddler caregiver current use of insulin Z79.4 ; Recurrent major depressive disorder, in partial remission F33.41 ; Hypothyroid E03.9 ; Candidal dermatitis B37.2 and Weakness generalized R53.1 [place] [address] [place] [id number] [address] [place] [address] May, [place] [address] [place] [id number] [address] [place] [address] May, [place] [address] [place] [id number] [address] [place] [address] May, [place] [address] [place] [id number] [address] [place] [address] May, Generalized abdominal pain R 10.84 and Candidal dermatitis B37.2 [place] [address] [place] [id number] [address] [place] [address] May, [place] [address] [facility] [id number] [address] [place] [address] May, [place] [address] [address] [facility] [id number] [address] [place] [address] May, Nodular radiologic density R 93.8 ; Weight loss, unintentional R63.4 and Pulmonary emphysema, unspecified emphysema type J43.9 [place] [address] [address] [facility] [id number] [address] [place] [address] May, Chronic pain G89.29 [place] [address] [facility] [id number] [address] [place] [address] 09 May, 2018 Syncope and collapse R55 ; C hronic fatigue R53.[address] lung screening R91.8 [place] [address] [address] [facility] [id number] [address] [place] [address] May, [place] [address] [address] [facility] [id number] [address] [place] [address] Apr, Chronic fatigue R53.82 ; Abn ormal chest CT R93.8 ; Elevated erythrocyte sedimentation rate R70.0 ; Hypothyroid E03.9 and Recurrent major depressive disorder, in partial remission F33.41 [place] [address] [address] [facility] [id number] [address] [place] [address] Apr, Hypothyroid E03.9 [place] [address] [address] [facility] [id number] [address] [place] [address] Apr, Depression F32.9 [place] [address] [facility] [id number] [address] [place] [address] Apr, [place] [address] [address] [facility] [id number] [address] [place] [address] March, [place] [address] [address] [facility] [id number] [address] [place] [address] March, Hypothyroid E03.9 [place] [address] [address] [facility] [id number] [address] [place] [address] March, Diabetes mellitus E11.9 and Hypothyroid E03.9 [place] [id number] [place] [address] March, Diabetes mellitus E11.9 [place] [id number] [place] [address] March, Hypothyroid E03.9 and Elevat ed liver enzymes R74.8 [place] [id number] [place] [address] March, Type 2 diabetes mellitus wit h [...] disorder, in partial remission F33.41 [place] [address] [address] Feb, Chronic pain G89.29 [place] [address] [address] Feb, Type 2 diabetes mellitus wit h hyperglycemia E11.65 and Skin lesion of scalp L98.[address] [address] Feb, [place] [address] [address] Jan, Type 2 diabetes mellitus wit h hyperglycemia E11.65 ; toddler caregiver current use of insulin Z79.4 ; Essential (primary) hypertension I10 ; Pulmonary emphysema, unspecified emphysema type J43.9 ; Chronic pain G89.29 ; Controlled substance agreement signed Z79.899 ; Hypothyroid E03.9 ; Neuropathy G62.9 ; Gastroesophageal reflux disease with esophagitis K21.0 ; Overactive bladder N32.81 ; Depression F32.9 and Irritable bowel syndrome with diarrhea K58.0 [place] [address] [id number] [address] [place] [address] Jan, [place] [address] [facility] [id number] [address] [place] [address] Jan, Controlled substance agreeme nt signed Z79.899 [place] [address] [facility] [id number] [address] [place] [address] 08 Dec, 2017 Type 2 diabetes mellitus [...] and Overweight (BMI 25.0-29.9) E66.3 [place] [address] [address] [facility] [id number] [address] [place] [address] 02 Dec, 2017 Controlled substance agreeme nt signed Z79.899 [place] [address] [facility] [id number] [address] [place] [address] Nov, Type 2 diabetes mellitus wit h hyperglycemia E11.65 and Current non- adherence to medical treatment Z91.19 [place] [address] [facility] [id number] [address] [place] [address] Nov, [place] [address] [facility] [id number] [address] [place] [address] Nov, Chronic pain G89.29 [place] [address] [facility] [id number] [address] [place] [address] Nov, [place] [address] [facility] [id number] [address] [place] [address] Nov, Hypothyroid E03.9 [place] [address] [facility] [id number] [address] [place] [address] Nov, Hypothyroid E03.9 [place] [address] [facility] [id number] [address] [place] [address] Nov, Pulmonary emphysema, unspeci fied emphysema type J43.9 and Irritable bowel syndrome with diarrhea K58.0 [facility] [address] [facility] [id number] [address] [place] [address] Oct, [place] [address] [place] [id number] [address] [place] [address] Oct, [place] [address] [facility] [id number] [address] [place] [address] Oct, [place] [address] [facility] [id number] [address] [place] [address] Oct, [place] [address] [facility] [id number] [address] [place] [address] Oct, Chronic pain G89.29 [place] [address] [place] [address] Oct, Diabetes mellitus E11.9 ; De pression F32.9 ; Mixed hyperlipidemia E78.2 ; Hypotension, unspecified hypotension type I95.9 ; Pulmonary emphysema, unspecified emphysema type J43.9 and Weight loss, unintentional R63.4 [place] [address] [place] [id number] [address] [place] [address] Oct, Chronic pain G89.29 [place] [address] [place] [id number] [address] [place] [address] Sep, Chronic pain G89.29 [place] [address] [place] [id number] [address] [place] [address] Sep, Hypothyroid E03.9 and Diabet es mellitus E11.9 [place] [address] [facility] [id number] [address] [place] [address] Aug, Type 2 diabetes mellitus wit h hyperglycemia E11.65 ; toddler caregiver current use of insulin Z79.4 ; Essential (primary) hypertension I10 ; Hypothyroid E03.9 ; Neuropathy G62.9 ; Chronic pain G89.29 ; Mixed hy perlipidemia E78.2 and Encounter for immunization Z23 [facility] [address] [place] [id number] [place] [address] Aug, Chronic pain G89.29 [facility] [address] [place] [id number] [place] [address] Aug, Overactive bladder N32.81 ; Diabetes mellitus E11.9 and Chronic pain G89.29 [facility] [address] [place] [id number] [address] [place] [address] Jul, [facility] [address] [place] [id number] [place] [address] Jun, [facility] [address] [place] [id number] [place] [address] Jun, [facility] [address] [address] Jun, Hypothyroid E03.9 [facility] [address] [place] [id number] [place] [address] Jun, Diabetes mellitus E11.9 ; Hy pothyroid E03.9 ; Neuropathy G62.9 ; Chronic pain G89.29 and Neck mass R22.1 [facility] [address] [address] Apr, [facility] [address] [place] [id number] [place] [address] Apr, Acute cystitis without hemat uria N30.00 [facility] [address] [place] [id number] [address] [place] [address] March, [facility] [address] [place] [id number] [place] [address] March, [facility] [address] [place] [id number] [place] [address] March, Near syncope R55 [facility] [address] [place] [id number] [address] [place] [address] Feb, [facility] [address] [place] [id number] [address] [place] [address] Feb, Chronic pain G89.29 [facility] [address] [place] [id number] [address] [place] [address] Feb, [facility] [address] [address] Feb, [facility] [address] [place] [id number] [address] [place] [address] Jan, Chronic pain G89.29 [facility] [address] [address] Jan, [facility] [address] [address] Jan, [facility] [address] [address] Jan, Diabetes mellitus E11.9 ; Hy pothyroid E03.9 ; GERD (gastroesophageal reflux disease) K21.9 ; Insomnia G47.00 ; Functional diarrhea K59.1 ; Neuropathy G62.9 ; Depression F32.9 ; Chronic pain G89.29 ; Irritable bowel syndrome with diarrhea K58.0 ; Overactive bladder N32.81 ; Mixed hyperlipidemia E78.2 and Bronchitis J40 [facility] [address] [place] [id number] [address] [place] [address] Dec, [facility] [address] [place] [id number] [address] [place] [address] Dec, [facility] [address] [address] Dec, [facility] [address] [place] [id number] [address] [place] [address] Dec, [facility] [address] [address] Dec, Chronic pain G89.29 [facility] [address] [facility] [id number] [address] [place] [address] Dec, [facility] [address] [place] [id number] [address] [place] [address] Dec, [facility] [address] [address] Dec, Type 2 diabetes mellitus wit h foot ulcer E11.621 [place] [address] [place] [id number] [address] [place] [address] Dec, Type 2 diabetes mellitus wit h foot ulcer E11.621 [place] [address] [place] [id number] [address] [place] [address] Dec, HTN (hypertension) I10 ; Dep ression F32.9 ; Type 2 diabetes mellitus with foot ulcer E11.621 ; Functional diarrhea K59.1 ; Irritable bowel syndrome with diarrhea K58.0 ; Chronic pain G89.29 ; Insomnia G47.00 ; Overactive bladder N32.81 ; Mixed hyperlipidemia E78.2 ; Gastroesophageal reflux disease with esophagitis K21.0 and Acquired hypothyroidism E03.9 [place] [address] [place] [id number] [address] [place] [address] Nov, [place] [address] [place] [id number] [address] [place] [address] Oct, [place] [address] [address] Oct, [place] [address] [place] [id number] [address] [place] [address] Oct, [place] [address] [address] Sep, Functional diarrhea K59.1 ; HTN (hypertension) I10 ; Diabetes mellitus E11.9 ; Depression F32.9 ; Overactive bladder N32.81 ; Mixed hyperlipidemia E78.2 ; Gastroesophageal reflux disease without esophagitis K21.9 ; Chronic pain G89.29 ; Insomnia G47.00 and Acquired hypothyroidism E03.9 [place] [address] [address] 04 Sep, 2016 [place] [address] [address] 11 Aug, 2016 Encounter for immunization Z 23 [place] [address] [address] 06 Aug, 2016 [place] [address] [address] Jul, [place] [address] [address] Jun, Type 2 diabetes mellitus wit hout complications E11.9 ; HTN (hypertension) I10 ; Hypothyroid E03.9 ; Neuropathy G62.9 ; Depression F32.9 ; Chronic pain G89.29 ; GERD (gastroesophageal reflux disease) K21.9 ; Insomnia G47.00 ; Overactive bladder N32.81 ; Mixed hyperlipidemia E78.2 ; Diarrhea of infectious origin A09 and Environmental allergies Z91.09 [place] [address] [address] Apr, [place] [address] [address] March, Hypothyroidism, unspecified E03.9 and Mixed hyperlipidemia E78.2 [place] [address] [address] March, Diabetes mellitus E11.9 ; HT N (hypertension) I10 ; Hypothyroid E03.9 ; Depression F32.9 ; Overactive bladder N32.81 ; Other chronic pain G89.29 ; Lumbago with sciatica, unspecified side M54.40 ; Environmental allergies Z91.09 and Gastroesophageal reflux disease, esophagitis presence not specified K21.9 [place] [address] [address] March, [place] [address] [address] Jan, HTN (hypertension) I10 ; Hyp othyroid E03.9 ; Neuropathy G62.9 ; Diabetes mellitus E11.9 ; Chronic pain G89.29 ; GERD (gastroesophageal reflux disease) K21.9 ; Overactive bladder N32.81 and Depression F32.9 [place] [address] [address] 12 Dec, 2015 Ear pain, left H92.02 ; HTN (hypertension) I10 ; Hypothyroid E03.9 ; Neuropathy G62.9 ; Diabetes mellitus E11.9 ; Depression F32.9 ; GERD (gastroesophageal reflux disease) K21.9 ; Insomnia G47.00 and Overactive bladder N32.81 [place] [address] [address] Nov, Overactive bladder N32.81 an d Chronic pain G89.29 [place] [address] [address] Nov, Kidney failure N19 [place] [address] [address] Nov, [place] [address] [address] Nov, [place] [address] [address] Nov, Diabetes mellitus E11.9 ; De pression F32.9 ; Chronic pain G89.29 ; GERD (gastroesophageal reflux disease) K21.9 ; Insomnia G47.00 ; HTN (hypertension) I10 ; Hypothyroid E03.9 ; COPD (chronic obstructive pulmonary disease) J44.9 ; Bladder incontinence R32 and Incontinence R32 [place] [address] [place] [id number] [address] [place] [address] Sep, Type 2 diabetes mellitus wit h foot ulcer E11.621 and Chromosomal abnormality, 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 [place] [address] [address] Sep, [place] [address] [address] Aug, [place] [address] [address] Aug, [place] [address] [address] Aug, HTN (hypertension) I10 ; Enc ounter for immunization Z23 ; Hypothyroid E03.9 ; Neuropathy G62.9 ; Diabetes mellitus E11.9 ; Depression F32.9 ; Chronic pain G89.29 ; GERD (gastroesophageal reflux disease) K21.9 ; Insomnia G47.00 and COPD (chronic obstructive pulmonary disease) J44.[address] [address] Jun, [place] [address] [address] Jun, [place] [address] [address] May, Essential hypertension, ivis gn 401.1 ; Unspecified hypothyroidism 244.9 ; Insomnia, unspecified 780.52 ; Shortness of breath 786.05 ; Depression 311 ; COPD (chronic obstructive pulmonary disease) 496 ; GERD (gastroesophageal reflux disease) 530.81 and Diabetes 1.5, 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 [place] [address] [address] May, [place] [address] [address] May, [place] [address] [address] May, Shortness of breath 786.05 ; Essential hypertension, benign 401.1 ; Diabetes mellitus 250.00 ; Hyperlipidemia 272.4 ; Hypothyroid 244.9 ; Insomnia 780.52 and Cough 786.2 [facility] [address] [id number] [address] [place] [address] Apr, [facility] [address] [id number] [address] [place] [address] March, Shortness of breath 786.05 ; Nausea with vomiting 787.01 ; Essential hypertension, benign 401.1 ; Diabetes mellitus 250.00 ; Hyperlipidemia 272.4 and Hypothyroid 244.9 [facility] [address] [id number] [address] [place] [id number] Feb, [facility] [address] [id number] [address] [place] [id number] Feb, [facility] [address] [facility] [id number] [address] [place] [id number] Jan, [facility] [address] [facility] [id number] [address] [place] [id number] Jan, [facility] [address] [facility] [id number] [address] [place] [id number] Jan, [facility] [facility] [address] [id number] [address] [place] [id number] Jan, [facility] [address] [facility] [id number] [address] [place] [address] Jan, [facility] [address] [facility] [id number] [address] [place] [id number] Jan, [facility] [address] [id number] [address] [place] [address] Jan, [facility] [address] [id number] [address] [place] [address] Jan, [facility] [address] [facility] [id number] [address] [place] [id number] Jan, [facility] [address] [facility] [id number] [address] [place] [address] Jan, [facility] [address] [id number] [address] [place] [address], [place] [address] Dec, 2014 [facility] [address] [id number] [address] [place] [address], [place] [address] Dec, 2014 [facility] [address] [id number] [address] [place] [address], [place] [address] Dec, 2014 [facility] [address] [id number] [address] [place] [address], [place] [address] Dec, 2014 [facility] [address] [id number] [address] [place] [address], [place] [address] Dec, 2014 [facility] [address] [id number] [address] [place] [address], [place] [address] Dec, 2014 [facility] [address] [id number] [address] [place] [address], [place] [address] Dec, 2014 [facility] [address] [id number] [address] [place] [address], [place] [address] Dec, 2014 [facility] [address] [id number] [address] [place] [address], [place] [address] Dec, 2014 [facility] [address] [id number] [address] [place] [address], [place] [address] Dec, 2014 [facility] [address] [id number] [address] [place] [address], [place] [address] Oct, [facility] [address] [id number] [address] [place] [address] Oct, [facility] [address] [id number] [address] [place] [address], [place] [address] Oct, [facility] [address] [id number] [address] [place] [address], [place] [address] Oct, [facility] [address] [id number] [address] [place] [address] Oct, [facility] [address] [id number] [address] [place] [address], [place] [address] 08 Oct, 2014 [facility] [address] [id number] [address] [place] [address], [place] [address] 05 Oct, 2014 [facility] [address] [id number] [address] [place] [address], [place] [address] 05 Oct, 2014 [facility] [address] [id number] [address] [place] [address], [place] [address] Oct, [facility] [address] [id number] [address] [place] [address], [place] [address] Oct, [facility] [address] [id number] [address] [place] [address], [place] [address] Oct, [facility] [address] [id number] [address] [place] [address], [place] [address] Oct, [facility] [address] [id number] [address] [place] [address], [place] [address] Oct, [facility] [address] [id number] [address] [place] [address], [place] [address] Oct, [facility] [address] [id number] [address] [place] [address], [place] [address] Sep, [facility] [address] [id number] [address] [place] [address], [place] [address] Sep, [facility] [address] [id number] [address] [place] [address], [place] [address] Sep, [facility] [address] [id number] [address] [place] [address], [place] [address] Sep, [facility] [address] [id number] [address] [place] [address], [place] [address] Sep, [facility] [address] [id number] [address] [place] [address], [place] [address] Sep, [facility] [address] [id number] [address] [place] [address], [place] [address] Sep, [facility] [address] [id number] [address] [place] [address], [place] [address] Sep, [facility] [address] [id number] [address] [place] [address], [place] [address] Sep, [facility] [address] [id number] [address] [place] [address], [place] [address] Aug, [facility] [address] [id number] [address] [place] [address], [place] [address] Aug, [facility] [address] [id number] [address] [place] [address], [place] [address] Aug, [facility] [address] [id number] [address] [place] [address], [place] [address] 17 Aug, 2014 [facility] [address] [id number] [address] [place] [address], [place] [address] 16 Aug, 2014 [facility] [address] [id number] [address] [place] [address], [place] [address] Aug, [facility] [address] [id number] [address] [place] [address], [place] [address] Aug, [facility] [address] [id number] [address] [place] [address], [place] [address] Aug, [facility] [address] [id number] [address] [place] [address], [place] [address] Aug, [facility] [address] [id number] [address] [place] [address], [place] [address] 29 Jul, 2014 [facility] [address] [id number] [address] [place] [address], [place] [address] 29 Jul, 2014 [facility] [address] [id number] [address] [place] [address], [place] [address] 25 Jul, 2014 [facility] [address] [id number] [address] [place] [address], [place] [address] 25 Jul, 2014 [facility] [address] [id number] [address] [place] [address], [place] [address] Jul, [facility] [address] [id number] [facility] [address] Jul, [facility] [address] [id number] [facility] [address] Jul, [facility] [address] [id number] [facility] [address] Jul, [facility] [address] [id number] [address] [place] [address], [place] [address] Jul, [facility] [address] [id number] [address] [place] [address], [place] [address] Jul, [facility] [address] [id number] [address] [place] [address], [place] [address] Jun, [facility] [address] [id number] [address] [place] [address], [place] [address] Jun, [facility] [address] [id number] [address] [place] [address], [place] [address] Jun, [facility] [address] [id number] [address] [place] [address], [place] [address] Jun, [facility] [address] [id number] [address] [place] [address], [place] [address] Jun, [facility] [address] [id number] [address] [place] [address], [place] [address] Jun, [facility] [address] [id number] [address] [place] [address], [place] [address] Jun, [facility] [address] [id number] [address] [place] [address], [place] [address] Jun, [facility] [address] [id number] [address] [place] [address], [place] [address] Jun, [facility] [address] [id number] [address] [place] [address], [place] [address] Jun, [facility] [address] [id number] [address] [place] [address], [place] [address] Jun, [facility] [address] [id number] [address] [place] [address], [place] [address] Jun, [facility] [address] [id number] [address] [place] [address], [place] [address] May, [facility] [address] [id number] [address] [place] [address], [place] [address] May, [facility] [address] [id number] [address] [place] [address], [place] [address] May, [facility] [address] [id number] [address] [place] [address], [place] [address] May, [facility] [address] [id number] [address] [place] [address], [place] [address] May, [facility] [address] [id number] [address] [place] [address], [place] [address] May, [facility] [address] [id number] [address] [place] [address], [place] [address] March, [facility] [address] [id number] [address] [place] [address], [place] [address] March, [facility] [address] [id number] [address] [place] [address], [place] [address] March, [facility] [address] [id number] [address] [place] [address], [place] [address] March, [facility] [address] [id number] [address] [place] [address], [place] [address] March, [facility] [address] [id number] [address] [place] [address], [place] [address] March, [facility] [address] [id number] [address] [place] [address], [place] [address] Feb, [facility] [address] [id number] [address] [place] [address], [place] [address] Feb, [facility] [address] [id number] [facility] [address] Feb, [facility] [address] [id number] [facility] [address] Feb, [facility] [address] [id number] [facility] [address] Jan, [facility] [address] [id number] [address] [place] [address], [place] [address] Jan, [facility] [address] [id number] [address] [place] [address], [place] [address] Jan, [facility] [address] [id number] [address] [place] [address], [place] [address] Jan, [facility] [address] [id number] [address] [place] [address], [place] [address] Jan, [facility] [address] [id number] [address] [place] [address], [place] [address] Jan, [facility] [address] [id number] [address] [place] [address], [place] [address] Jan, [facility] [address] [id number] [address] [place] [address], [place] [address] Jan, [facility] [address] [id number] [address] [place] [address], [place] [address] Jan, [facility] [address] [id number] [address] [place] [address], [place] [address] Jan, [facility] [address] [id number] [address] [place] [address], [place] [address] Jan, [facility] [address] [id number] [address] [place] [address], [place] [address] Jan, [facility] [address] [id number] [address] [place] [address], [place] [address] Dec, [facility] [address] [id number] [address] [place] [address], [place] [address] Dec, [facility] [address] [id number] [address] [place] [address], [place] [address] Dec, [facility] [address] [id number] [address] [place] [address], [place] [address] Dec, [facility] [address] [id number] [address] [place] [address], [place] [address] Dec, [facility] [address] [id number] [address] [place] [address], [place] [address] Dec, [facility] [address] [id number] [address] [place] [address], [place] [address] Nov, [facility] [address] [id number] [address] [place] [address], [place] [address] Nov, [facility] [address] [id number] [address] [place] [address], [place] [address] Oct, [facility] [address] [id number] [address] [place] [address], [place] [address] Oct, [facility] [address] [id number] [address] [place] [address], [place] [address] Oct, [facility] [address] [id number] [address] [place] [address], [place] [address] Oct, [facility] [address] [id number] [address] [place] [address], [place] [address] Oct, [facility] [address] [id number] [address] [place] [address], [place] [address] Oct, [facility] [address] [id number] [address] [place] [address], [place] [address] Sep, [facility] [address] [id number] [address] [place] [address], [place] [address] Sep, [facility] [address] [id number] [address] [place] [address], [place] [address] Sep, [facility] [address] [id number] [address] [place] [address], [place] [address] Sep, [facility] [address] [id number] [address] [place] [address], [place] [address] Aug, [facility] [address] [id number] [address] [place] [address], [place] [address] Aug, [facility] [address] [id number] [address] [place] [address], [place] [address] Aug, [facility] [address] [id number] [address] [place] [address], [place] [address] 17 Jul, 2013 [facility] [address] [id number] [address] [place] [address], [place] [address] 14 Jul, 2013 [facility] [address] [id number] [address] [place] [address], [place] [address] Jul, [facility] [address] [id number] [address] [place] [address], [place] [address] Jun, [facility] [address] [id number] [address] [place] [address], [place] [address] Jun, [facility] [address] [id number] [address] [place] [address], [place] [address] Jun, [facility] [address] [id number] [address] [place] [address], [place] [address] Apr, [facility] [address] [id number] [address] [place] [address], [place] [address] Apr, [facility] [address] [id number] [address] [place] [address], [place] [address] March, [facility] [address] [id number] [address] [place] [address], [place] [address] March, [facility] [address] [id number] [address] [place] [address], [place] [address] March, [facility] [address] [id number] [address] [place] [address], [place] [address] March, [facility] [address] [id number] [address] [place] [address], [place] [address] Feb, [facility] [address] [id number] [address] [place] [address], [place] [address] Jan, [facility] [address] [id number] [address] [place] [address], [place] [address] 13 Dec, 2012 [facility] [address] [id number] [address] [place] [address], [place] [address] 08 Dec, 2012 [facility] [address] [id number] [address] [place] [address], [place] [address] Dec, [facility] [address] [id number] [address] [place] [address], [place] [address] Nov, [facility] [address] [id number] [address] [place] [address], [place] [address] Oct, [facility] [address] [id number] [address] [place] [address], [place] [address] Oct, [facility] [address] [id number] [address] [place] [address], [place] [address] Sep, [facility] [address] [id number] [address] [place] [address], [place] [address] Sep, [facility] [address] [id number] [address] [place] [address], [place] [address] Sep, [facility] [address] [id number] [address] [place] [address], [place] [address] Sep, [facility] [address] [id number] [address] [place] [address], [place] [address] Sep, [facility] [address] [id number] [address] [place] [address], [place] [address] Sep, [facility] [address] [id number] [address] [place] [address], [place] [address] Sep, [facility] [address] [id number] [address] [place] [address], [place] [address] 16 Aug, 2012 [facility] [address] [id number] [address] [place] [address], [place] [address] 16 Aug, 2012 [facility] [address] [id number] [address] [place] [address], [place] [address] 10 Aug, 2012 [facility] [address] [id number] [address] [place] [address], [place] [address] 10 Aug, 2012 [facility] [address] [id number] [address] [place] [address], [place] [address] 08 Aug, 2012 [facility] [address] [id number] [address] [place] [address], [place] [address] Aug, [facility] [address] [id number] [address] [place] [address], [place] [address] Aug, [facility] [address] [id number] [address] [place] [address], [place] [address] Aug, [facility] [address] [id number] [address] [place] [address], [place] [address] Jul, [facility] [address] [id number] [address] [place] [address], [place] [address] Jul, [facility] [address] [id number] [address] [place] [address], [place] [address] Jun, [facility] [address] [id number] [address] [place] [address], [place] [address] May, [facility] [address] [id number] [address] [place] [address], [place] [address] Apr, [facility] [address] [id number] [address] [place] [address], [place] [address] Apr, [facility] [address] [id number] [address] [place] [address], [place] [address] Apr, [facility] [address] [id number] [address] [place] [address], [place] [id number] March, [facility] [address] [id number] [address] [place] [address], [place] [address] March, [facility] [address] [id number] [address] [place] [address], [place] [address] March, [facility] [address] [id number] [address] [place] [address], [place] [address] March, [facility] [address] [id number] [address] [place] [address], [place] [address] March, [facility] [address] [id number] [address] [place] [address], [place] [address] March, [facility] [address] [id number] [address] [place] [address], [place] [address] March, [facility] [address] [id number] [address] [place] [address], [place] [address] Jan, [facility] [address] [id number] [address] [place] [address], [place] [address] Jan, [facility] [address] [id number] [address] [place] [address], [place] [address] Jan, [facility] [address] [id number] [address] [place] [address], [place] [address] Jan, [facility] [address] [id number] [address] [place] [address], [place] [address] Jan, [facility] [address] [id number] [address] [place] [address], [place] [address] Dec, [facility] [address] [id number] [address] [place] [address], [place] [address] Dec, [facility] [address] [id number] [address] [place] [address], [place] [address] Nov, [facility] [address] [id number] [address] [place] [address], [place] [address] Nov, [facility] [address] [id number] [address] [place] [address], [place] [address] 06 Nov, 2011 [facility] [address] [id number] [address] [place] [address], [place] [address] Nov, [facility] [address] [id number] [address] [place] [address], [place] [address] Oct, [facility] [address] [id number] [address] [place] [address], [place] [address] Oct, [facility] [address] [id number] [address] [place] [address], [place] [address] 14 Sep, 2011 [facility] [address] [id number] [address] [place] [address], [place] [address] Sep, [facility] [address] [id number] [address] [place] [address], [place] [address] Sep, [facility] [address] [id number] [address] [place] [address], [place] [address] May, [facility] [address] [id number] [address] [place] [address], [place] [address] Nov, [facility] [address] [id number] [address] [place] [address], [place] [address] Oct, [facility] [address] [id number] [address] [place] [address], [place] [address] Oct, [facility] [address] [id number] [address] [place] [address], [place] [address] Oct, [facility] [address] [id number] [address] [place] [address], [place] [id number] 15 Sep, 2010 [facility] [address] [id number] [address] [place] [address], [place] [address] Sep, [facility] [address] [id number] [address] [place] [address], [place] [address] Aug, [facility] [address] [id number] [address] [place] [address], [place] [address] March, [facility] [address] [id number] [address] [place] [id number] Oct, [facility] [address] [id number] [address] [place] [address] Oct, [facility] [address] [id number] [address] [place] [id number] Oct, [facility] [address] [id number] [address] [place] [id number] Oct, [facility] [address] [id number] [address] [place] [address] Sep, [facility] [address] [id number] [address] [place] [id number] Sep, [facility] [address] [id number] [address] [place] [id number] Sep, [facility] [address] [id number] [address] [place] [id number] Aug, [facility] [address] [id number] [address] [place] [id number] Aug, [facility] [address] [id number] [address] [place] [address] Aug, [facility] [address] [id number] [address] [place] [id number] Jan, IMMUNIZATIONS No Known Immunizations SOCIAL HISTORY Never Assessed REASON FOR VISIT PLAN OF CARE VITAL SIGNS Height 69 in 2014-09-28 Weight 230.2 lbs 2014-09-28 Temperature 98.1 degrees Fahrenheit 2014-09-28 Heart Rate 84 bpm 2014-09-28 Respiratory Rate 20 2014-09-28 Blood pressure systolic 128 mmHg 2014-09-28 Blood pressure diastolic 90 mmHg 2014-09-28 MEDICATIONS Unknown Medications RESULTS No Results PROCEDURES Procedure Date Ordered Result Body Site FOOT EXAM PERFORMED Sep 28, 2014 INSTRUCTIONS MEDICATIONS ADMINISTERED No Known Medications [...]
--- OUTSIDE RECORDS SUMMARY | 2020-06-13 16:48 | XMS REPORT ---
Author Author Jah Durant Doctor Organization [facility] Address Unknown Phone Unavailable Care Team Providers Care Director Insurance Name Role Phone Migration, Doctor Unavailable Unavailable PROBLEMS Type Condition ICD9-CM Code JEE92-LE Code Onset Dates Condition S tatus SNOMED Code Problem Neuropathy G62.9 Active 641067270 Problem Chronic pain G89.29 Active 1215500 1 Problem Overactive bladder N32.81 Active 2 92964532 Problem Hypothyroid E03.9 Active 34259597 Problem Irritable bowel syndrome with diarrhea K58.0 Active 061117897 Problem nursing home current use of insulin Z79.4 Active 305175827 Problem Type 2 diabetes mellitus with hyperglycemia E11.65 Active 29610276 Problem Chronic obstructive pulmonary disease, unspecified COPD ty pe J44.9 Active 25377769 Problem Gastroesophageal reflux disease with esophagitis K 21.0 Active 554333609 Problem Major depressive disorder, recurrent, in full remission F33.42 Active 88100269 Problem Mixed hyperlipidemia E78.2 Active 619523130 Problem Essential (primary) hypertension I10 Active 57373042 Problem Anxiety disorder, unspecified type F41.9 Active 709041217 Problem Gastroparesis K31.84 Active 824313 006 Problem 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 Active 300427942 ALLERGIES No Information ENCOUNTERS Encounter Location Date Diagnosis [place] [address] [address] [facility] [id number] [address] [place] [address] Jun, Encounter for Medicare annua l wellness exam Z00.00 ; Type 2 diabetes mellitus with hyperglycemia E11.65 ; Mixed hyperlipidemia E78.2 ; Hypothyroid E03.9 ; Gastroesophageal reflux disease with esophagitis K21.0 ; Essential (primary) hypertension I10 ; Major depressive disorder, recurrent, in full remission F33.42 ; Chronic obstructive pulmonary disease, unspecified COPD type J44.9 ; Neuropathy G62.9 and Encounter for immunization Z23 [place] [address] [facility] [id number] [address] [place] [address] Jun, Irritable bowel syndrome wit h diarrhea K58.0 [facility] [address] [id number] [address] [place] [address] May, Chronic pain G89.29 [facility] [address] [id number] [address] [place] [address] May, Type 2 diabetes mellitus wit h hyperglycemia E11.65 and Neuropathy G62.9 [facility] [address] [id number] [address] [place] [address] May, Chronic pain G89.29 [facility] [address] [id number] [address] [place] [address] Apr, Poison maryam dermatitis L23.7 [facility] [address] [facility] [id number] [address] [place] [address] Apr, Chronic pain G89.29 [facility] [address] [id number] [address] [place] [address] March, Type 2 diabetes mellitus wit h hyperglycemia E11.65 [facility] [address] [facility] [id number] [address] [place] [address] March, Chronic pain G89.29 [facility] [address] [facility] [id number] [address] [place] [address] March, [address] [address] Feb, [facility] [address] [id number] [address] [place] [address] Feb, Other chronic pain G89.29 an d Chronic pain G89.29 [facility] [address] [id number] [address] [place] [address] Jan, Mixed hyperlipidemia E78.2 [facility] [address] [id number] [address] [place] [address] Jan, Chronic pain G89.29 [facility] [address] [facility] [id number] [address] [place] [address] Jan, Type 2 diabetes mellitus wit h hyperglycemia E11.65 ; Mixed hyperlipidemia E78.2 ; nursing home current use of insulin Z79.4 ; Acquired hypothyroidism E03.9 and Essential (primary) hypertension I10 [facility] [address] [facility] [id number] [address] [place] [address] 11 Dec, 2018 Chronic pain G89.29 [place] [address] [address] [facility] [id number] [address] [place] [address] Nov, Chronic pain G89.29 [place] [address] [address] [facility] [id number] [address] [place] [address] Nov, [place] [address] [address] [facility] [id number] [address] [place] [address] Oct, Chronic pain G89.29 [place] [address] [address] [place] [id number] [address] [place] [address] Oct, [place] [address] [address] [facility] [id number] [address] [place] [address] Sep, [place] [address] [address] [facility] [id number] [address] [place] [address] Sep, Type 2 diabetes mellitus wit h hyperglycemia E11.65 [place] [address] [address] [facility] [id number] [address] [place] [address] 16 Sep, 2018 Chronic pain G89.29 [place] [address] [address] [place] [id number] [address] [place] [address] Sep, [place] [address] [address] [facility] [id number] [address] [place] [address] Sep, Type 2 diabetes mellitus wit h hyperglycemia E11.65 ; Irritable bowel syndrome with diarrhea K58.0 ; Gastroparesis K31.84 ; 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 and Dermatitis L30.9 [place] [address] [address] [facility] [id number] [address] [place] [address] Aug, Chronic pain G89.29 [place] [address] [address] [facility] [id number] [address] [place] [address] Jul, Chronic pain G89.29 [place] [address] [address] [place] [id number] [address] [place] [address] Jun, Type 2 diabetes mellitus wit h hyperglycemia E11.65 ; Neuropathy G62.9 ; Recurrent major depressive disorder, in partial remission F33.41 ; Chronic pain G89.29 and Hypertriglyceridemia E78.1 [place] [address] [address] [facility] [id number] [address] [place] [address] Jun, Hypothyroid E03.9 [place] [address] [address] [facility] [id number] [place] [address] Jun, Major depressive disorder, r ecurrent episode, moderate F33.1 and Anxiety disorder, unspecified type F41.9 [place] [address] [address] [place] [id number] [address] [place] [phone] Jun, [place] [address] [address] [place] [id number] [address] [place] [address] Jun, Type 2 diabetes mellitus wit h hyperglycemia E11.65 ; 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.4 ; Recurrent major depressive disorder, in partial remission F33.41 ; Hypothyroid E03.9 ; Candidal dermatitis B37.2 and Weakness generalized R53.1 [place] [id number] [address] [place] [phone] May, [place] [address] [address] [place] [id number] [address] [place] [address] May, [place] [address] [address] [place] [id number] [address] [place] [phone] May, [place] [address] [address] [place] [id number] [address] [place] [address] May, Generalized abdominal pain R 10.84 and Candidal dermatitis B37.2 [place] [address] [address] [place] [id number] [address] [place] [phone] May, [id number] [facility] [id number] [address] [place] [phone] May, [place] [address] [address] [facility] [id number] [address] [place] [address] May, Nodular radiologic density R 93.8 ; Weight loss, unintentional R63.4 and Pulmonary emphysema, unspecified emphysema type J43.9 [place] [address] [address] [facility] [id number] [address] [place] [address] May, Chronic pain G89.29 [place] [address] [address] [facility] [id number] [address] [place] [phone] 09 May, 2018 Syncope and collapse R55 ; C hronic fatigue R53.[address] lung screening R91.8 [place] [address] [address] [facility] [id number] [address] [place] [address] May, [place] [address] [address] [facility] [id number] [address] [place] [address] Apr, Chronic fatigue R53.82 ; Abn ormal chest CT R93.8 ; Elevated erythrocyte sedimentation rate R70.0 ; Hypothyroid E03.9 and Recurrent major depressive disorder, in partial remission F33.41 [place] [address] [address] [facility] [id number] [address] [place] [address] Apr, Hypothyroid E03.9 [place] [address] [address] [facility] [id number] [address] [place] [address] Apr, Depression F32.9 [place] [address] [address] [facility] [id number] [address] [place] [address] Apr, [place] [address] [address] [facility] [id number] [address] [place] [address] March, [place] [address] [address] [facility] [id number] [address] [place] [address] March, Hypothyroid E03.9 [place] [address] [address] [facility] [id number] [address] [place] [address] March, Diabetes mellitus E11.9 and Hypothyroid E03.9 [place] [address] [address] [place] [address] March, Diabetes mellitus E11.9 [place] [address] [address] [place] [address] March, Hypothyroid E03.9 and Elevat ed liver enzymes R74.8 [place] [id number] [address] [place] [address] March, Type 2 diabetes mellitus wit h [...] major depressive disorder, in partial remission F33.41 [place] [address] [address] Feb, Chronic pain G89.29 [place] [address] [address] Feb, Type 2 diabetes mellitus wit h hyperglycemia E11.65 and Skin lesion of scalp L98.[address] [address] Feb, [place] [address] [address] Jan, Type 2 diabetes mellitus wit h hyperglycemia E11.65 ; 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.4 ; Essential (primary) hypertension I10 ; Pulmonary emphysema, unspecified emphysema type J43.9 ; Chronic pain G89.29 ; Controlled substance agreement signed Z79.899 ; Hypothyroid E03.9 ; Neuropathy G62.9 ; Gastroesophageal reflux disease with esophagitis K21.0 ; Overactive bladder N32.81 ; Depression F32.9 and Irritable bowel syndrome with diarrhea K58.0 [place] [address] [id number] [address] [place] [address] Jan, [place] [address] [address] [facility] [id number] [address] [place] [address] Jan, Controlled substance agreeme nt signed Z79.899 [place] [facility] [id number] [address] [place] [address] 08 Dec, 2017 Type 2 diabetes mellitus [...] treatment Z91.19 and Overweight (BMI 25.0-29.9) E66.3 [place] [address] [address] [facility] [id number] [address] [place] [phone] 02 Dec, 2017 Controlled substance agreeme nt signed Z79.899 [place] [address] [address] [facility] [id number] [address] [place] [address] Nov, Type 2 diabetes mellitus wit h hyperglycemia E11.65 and Current non- adherence to medical treatment Z91.19 [place] [address] [address] [facility] [id number] [address] [place] [address] Nov, [place] [address] [address] [facility] [id number] [address] [place] [address] Nov, Chronic pain G89.29 [place] [address] [address] [facility] [id number] [address] [place] [address] Nov, [place] [address] [address] [facility] [id number] [address] [place] [address] Nov, Hypothyroid E03.9 [place] [address] [address] [facility] [id number] [address] [place] [address] Nov, Hypothyroid E03.9 [id number] [facility] [id number] [address] [place] [phone] Nov, Pulmonary emphysema, unspeci fied emphysema type J43.9 and Irritable bowel syndrome with diarrhea K58.0 [facility] [address] [facility] [id number] [address] [place] [address] Oct, [place] [address] [address] [place] [id number] [address] [place] [address] Oct, [place] [address] [address] [facility] [id number] [address] [place] [address] Oct, [place] [address] [address] [facility] [id number] [address] [place] [address] Oct, [place] [address] [address] [facility] [id number] [address] [place] [address] Oct, Chronic pain G89.29 [place] [address] [address] [place] [address] Oct, Diabetes mellitus E11.9 ; De pression F32.9 ; Mixed hyperlipidemia E78.2 ; Hypotension, unspecified hypotension type I95.9 ; Pulmonary emphysema, unspecified emphysema type J43.9 and Weight loss, unintentional R63.4 [place] [address] [address] [place] [id number] [address] [place] [address] Oct, Chronic pain G89.29 [place] [address] [address] [place] [id number] [address] [place] [address] Sep, Chronic pain G89.29 [place] [address] [address] [place] [id number] [address] [place] [address] Sep, Hypothyroid E03.9 and Diabet es mellitus E11.9 [place] [address] [address] [facility] [id number] [address] [place] [address] Aug, Type 2 diabetes mellitus wit h hyperglycemia E11.65 ; 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.4 ; Essential (primary) hypertension I10 ; Hypothyroid E03.9 ; Neuropathy G62.9 ; Chronic pain G89.29 ; Mixed hy perlipidemia E78.2 and Encounter for immunization Z23 [facility] [address] [place] [id number] [place] [address] Aug, Chronic pain G89.29 [facility] [address] [place] [id number] [place] [address] Aug, Overactive bladder N32.81 ; Diabetes mellitus E11.9 and Chronic pain G89.29 [facility] [address] [place] [id number] [address] [place] [address] Jul, [facility] [address] [place] [id number] [place] [address] Jun, [facility] [address] [place] [id number] [place] [address] Jun, [facility] [address] [address] Jun, Hypothyroid E03.9 [facility] [address] [place] [id number] [place] [address] Jun, Diabetes mellitus E11.9 ; Hy pothyroid E03.9 ; Neuropathy G62.9 ; Chronic pain G89.29 and Neck mass R22.1 [facility] [address] [address] Apr, [facility] [address] [place] [id number] [place] [address] Apr, Acute cystitis without hemat uria N30.00 [facility] [address] [place] [id number] [address] [place] [phone] March, [facility] [address] [place] [id number] [place] [address] March, [facility] [address] [place] [id number] [place] [address] March, Near syncope R55 [facility] [address] [place] [id number] [address] [place] [address] Feb, [facility] [address] [place] [id number] [address] [place] [address] Feb, Chronic pain G89.29 [facility] [address] [place] [id number] [address] [place] [address] Feb, [facility] [address] [address] Feb, [facility] [address] [place] [id number] [address] [place] [address] Jan, Chronic pain G89.29 [facility] [address] [address] Jan, [facility] [address] [address] Jan, [facility] [address] [address] Jan, Diabetes mellitus E11.9 ; Hy pothyroid E03.9 ; GERD (gastroesophageal reflux disease) K21.9 ; Insomnia G47.00 ; Functional diarrhea K59.1 ; Neuropathy G62.9 ; Depression F32.9 ; Chronic pain G89.29 ; Irritable bowel syndrome with diarrhea K58.0 ; Overactive bladder N32.81 ; Mixed hyperlipidemia E78.2 and Bronchitis J40 [facility] [address] [place] [id number] [address] [place] [address] Dec, [facility] [address] [place] [id number] [address] [place] [address] Dec, [facility] [address] [address] Dec, [facility] [address] [place] [id number] [address] [place] [address] Dec, [facility] [address] [address] Dec, Chronic pain G89.29 [facility] [address] [facility] [id number] [address] [place] [address] Dec, [facility] [address] [place] [id number] [address] [place] [address] Dec, [facility] [address] [address] Dec, Type 2 diabetes mellitus wit h foot ulcer E11.621 [place] [address] [place] [id number] [address] [place] [address] Dec, Type 2 diabetes mellitus wit h foot ulcer E11.621 [place] [address] [address] [place] [id number] [address] [place] [address] Dec, HTN (hypertension) I10 ; Dep ression F32.9 ; Type 2 diabetes mellitus with foot ulcer E11.621 ; Functional diarrhea K59.1 ; Irritable bowel syndrome with diarrhea K58.0 ; Chronic pain G89.29 ; Insomnia G47.00 ; Overactive bladder N32.81 ; Mixed hyperlipidemia E78.2 ; Gastroesophageal reflux disease with esophagitis K21.0 and Acquired hypothyroidism E03.9 [place] [place] [id number] [address] [place] [address] Nov, [place] [address] [place] [id number] [address] [place] [address] Oct, [place] [address] [address] Oct, [place] [address] [place] [id number] [address] [place] [address] Oct, [place] [address] [address] Sep, Functional diarrhea K59.1 ; HTN (hypertension) I10 ; Diabetes mellitus E11.9 ; Depression F32.9 ; Overactive bladder N32.81 ; Mixed hyperlipidemia E78.2 ; Gastroesophageal reflux disease without esophagitis K21.9 ; Chronic pain G89.29 ; Insomnia G47.00 and Acquired hypothyroidism E03.9 [place] [address] [address] 04 Sep, 2016 [place] [address] [address] 11 Aug, 2016 Encounter for immunization Z 23 [place] [address] [address] 06 Aug, 2016 [place] [address] [address] Jul, [place] [address] [address] Jun, Type 2 diabetes mellitus wit hout complications E11.9 ; HTN (hypertension) I10 ; Hypothyroid E03.9 ; Neuropathy G62.9 ; Depression F32.9 ; Chronic pain G89.29 ; GERD (gastroesophageal reflux disease) K21.9 ; Insomnia G47.00 ; Overactive bladder N32.81 ; Mixed hyperlipidemia E78.2 ; Diarrhea of infectious origin A09 and Environmental allergies Z91.09 [place] [address] [address] Apr, [place] [address] [address] March, Hypothyroidism, unspecified E03.9 and Mixed hyperlipidemia E78.2 [place] [address] [address] March, Diabetes mellitus E11.9 ; HT N (hypertension) I10 ; Hypothyroid E03.9 ; Depression F32.9 ; Overactive bladder N32.81 ; Other chronic pain G89.29 ; Lumbago with sciatica, unspecified side M54.40 ; Environmental allergies Z91.09 and Gastroesophageal reflux disease, esophagitis presence not specified K21.9 [place] [address] [address] March, [place] [address] [address] Jan, HTN (hypertension) I10 ; Hyp othyroid E03.9 ; Neuropathy G62.9 ; Diabetes mellitus E11.9 ; Chronic pain G89.29 ; GERD (gastroesophageal reflux disease) K21.9 ; Overactive bladder N32.81 and Depression F32.9 [place] [address] [address] 12 Dec, 2015 Ear pain, left H92.02 ; HTN (hypertension) I10 ; Hypothyroid E03.9 ; Neuropathy G62.9 ; Diabetes mellitus E11.9 ; Depression F32.9 ; GERD (gastroesophageal reflux disease) K21.9 ; Insomnia G47.00 and Overactive bladder N32.81 [place] [address] [address] Nov, Overactive bladder N32.81 an d Chronic pain G89.29 [place] [address] [address] Nov, Kidney failure N19 [place] [address] [address] Nov, [place] [address] [address] Nov, [place] [address] [address] Nov, Diabetes mellitus E11.9 ; De pression F32.9 ; Chronic pain G89.29 ; GERD (gastroesophageal reflux disease) K21.9 ; Insomnia G47.00 ; HTN (hypertension) I10 ; Hypothyroid E03.9 ; COPD (chronic obstructive pulmonary disease) J44.9 ; Bladder incontinence R32 and Incontinence R32 [place] [address] [place] [id number] [address] [place] [address] Sep, Type 2 diabetes mellitus wit h foot ulcer E11.621 and Chromosomal abnormality, 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 [place] [address] [address] Sep, [place] [address] [address] Aug, [place] [address] [address] Aug, [place] [address] [address] Aug, HTN (hypertension) I10 ; Enc ounter for immunization Z23 ; Hypothyroid E03.9 ; Neuropathy G62.9 ; Diabetes mellitus E11.9 ; Depression F32.9 ; Chronic pain G89.29 ; GERD (gastroesophageal reflux disease) K21.9 ; Insomnia G47.00 and COPD (chronic obstructive pulmonary disease) J44.[address] [address] Jun, [place] [address] [address] Jun, [place] [address] [address] May, Essential hypertension, ivis gn 401.1 ; Unspecified hypothyroidism 244.9 ; Insomnia, unspecified 780.52 ; Shortness of breath 786.05 ; Depression 311 ; COPD (chronic obstructive pulmonary disease) 496 ; GERD (gastroesophageal reflux disease) 530.81 and Diabetes 1.5, 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 [place] [address] [address] May, [place] [address] [address] May, [place] [address] [address] May, Shortness of breath 786.05 ; Essential hypertension, benign 401.1 ; Diabetes mellitus 250.00 ; Hyperlipidemia 272.4 ; Hypothyroid 244.9 ; Insomnia 780.52 and Cough 786.2 [facility] [address] [id number] [address] [place] [id number] Apr, [facility] [address] [id number] [address] [place] [id number] March, Shortness of breath 786.05 ; Nausea with vomiting 787.01 ; Essential hypertension, benign 401.1 ; Diabetes mellitus 250.00 ; Hyperlipidemia 272.4 and Hypothyroid 244.9 [facility] [address] [id number] [address] [place] [id number] Feb, [facility] [address] [id number] [address] [place] [id number] Feb, [facility] [facility] [address] [facility] [id number] [address] [place] [phone] Jan, [facility] [address] [facility] [id number] [address] [place] [phone] Jan, [facility] [address] [facility] [id number] [address] [place] [id number] Jan, [facility] [address] [id number] [address] [place] [id number] Jan, [facility] [address] [facility] [id number] [address] [place] [phone] Jan, [facility] [address] [facility] [id number] [address] [place] [phone] Jan, [facility] [address] [id number] [address] [place] [phone] Jan, [facility] [address] [id number] [address] [place] [phone] Jan, [facility] [address] [facility] [id number] [address] [place] [phone] Jan, [facility] [address] [facility] [id number] [address] [place] [phone] Jan, [facility] [address] [id number] [address] [place] [address], [place] [address] Dec, 2014 [facility] [address] [id number] [address] [place] [address], [place] [address] Dec, 2014 [facility] [address] [id number] [address] [place] [address], [place] [address] Dec, 2014 [facility] [address] [id number] [address] [place] [address], [place] [address] Dec, 2014 [facility] [address] [id number] [address] [place] [address], [place] [address] Dec, 2014 [facility] [address] [id number] [address] [place] [address], [place] [address] Dec, 2014 [facility] [address] [id number] [address] [place] [address], [place] [address] Dec, 2014 [facility] [address] [id number] [address] [place] [address], [place] [address] Dec, 2014 [facility] [address] [id number] [address] [place] [address], [place] [address] Dec, 2014 [facility] [address] [id number] [address] [place] [address], [place] [address] Dec, 2014 [facility] [address] [id number] [address] [place] [address], [place] [address] Oct, [facility] [address] [id number] [address] [place] [phone] Oct, [facility] [address] [id number] [address] [place] [address], [place] [address] Oct, [facility] [address] [id number] [address] [place] [address], [place] [address] Oct, [facility] [address] [id number] [address] [place] [phone] Oct, [facility] [address] [id number] [address] [place] [address], [place] [address] 08 Oct, 2014 [facility] [address] [id number] [address] [place] [address], [place] [address] 05 Oct, 2014 [facility] [address] [id number] [address] [place] [address], [place] [address] 05 Oct, 2014 [facility] [address] [id number] [address] [place] [address], [place] [address] Oct, [facility] [address] [id number] [address] [place] [address], [place] [address] Oct, [facility] [address] [id number] [address] [place] [address], [place] [address] Oct, [facility] [address] [id number] [address] [place] [address], [place] [address] Oct, [facility] [address] [id number] [address] [place] [address], [place] [address] Oct, [facility] [address] [id number] [address] [place] [address], [place] [address] Oct, [facility] [address] [id number] [address] [place] [address], [place] [address] Sep, [facility] [address] [id number] [address] [place] [address], [place] [address] Sep, [facility] [address] [id number] [address] [place] [address], [place] [address] Sep, [facility] [address] [id number] [address] [place] [address], [place] [address] Sep, [facility] [address] [id number] [address] [place] [address], [place] [address] Sep, [facility] [address] [id number] [address] [place] [address], [place] [address] Sep, [facility] [address] [id number] [address] [place] [address], [place] [address] Sep, [facility] [address] [id number] [address] [place] [address], [place] [address] Sep, [facility] [address] [id number] [address] [place] [address], [place] [address] Sep, [facility] [address] [id number] [address] [place] [address], [place] [address] Aug, [facility] [address] [id number] [address] [place] [address], [place] [address] Aug, [facility] [address] [id number] [address] [place] [address], [place] [address] Aug, [facility] [address] [id number] [address] [place] [address], [place] [address] 17 Aug, 2014 [facility] [address] [id number] [address] [place] [address], [place] [address] 16 Aug, 2014 [facility] [address] [id number] [address] [place] [address], [place] [address] Aug, [facility] [address] [id number] [address] [place] [address], [place] [address] Aug, [facility] [address] [id number] [address] [place] [address], [place] [address] Aug, [facility] [address] [id number] [address] [place] [address], [place] [address] Aug, [facility] [address] [id number] [address] [place] [address], [place] [address] 29 Jul, 2014 [facility] [address] [id number] [address] [place] [address], [place] [address] 29 Jul, 2014 [facility] [address] [id number] [address] [place] [address], [place] [address] 25 Jul, 2014 [facility] [address] [id number] [address] [place] [address], [place] [address] 25 Jul, 2014 [facility] [address] [id number] [address] [place] [address], [place] [address] Jul, [facility] [address] [id number] [facility] [place] [address] Jul, [facility] [address] [id number] [facility] [place] [address] Jul, [facility] [address] [id number] [facility] [place] [address] Jul, [facility] [address] [id number] [address] [place] [address], [place] [address] Jul, [facility] [address] [id number] [address] [place] [address], [place] [address] Jul, [facility] [address] [id number] [address] [place] [address], [place] [address] Jun, [facility] [address] [id number] [address] [place] [address], [place] [address] Jun, [facility] [address] [id number] [address] [place] [address], [place] [address] Jun, [facility] [address] [id number] [address] [place] [address], [place] [address] Jun, [facility] [address] [id number] [address] [place] [address], [place] [address] Jun, [facility] [address] [id number] [address] [place] [address], [place] [address] Jun, [facility] [address] [id number] [address] [place] [address], [place] [address] Jun, [facility] [address] [id number] [address] [place] [address], [place] [address] Jun, [facility] [address] [id number] [address] [place] [address], [place] [address] Jun, [facility] [address] [id number] [address] [place] [address], [place] [address] Jun, [facility] [address] [id number] [address] [place] [address], [place] [address] Jun, [facility] [address] [id number] [address] [place] [address], [place] [address] Jun, [facility] [address] [id number] [address] [place] [address], [place] [address] May, [facility] [address] [id number] [address] [place] [address], [place] [address] May, [facility] [address] [id number] [address] [place] [address], [place] [address] May, [facility] [address] [id number] [address] [place] [address], [place] [address] May, [facility] [address] [id number] [address] [place] [address], [place] [address] May, [facility] [address] [id number] [address] [place] [address], [place] [address] May, [facility] [address] [id number] [address] [place] [address], [place] [address] March, [facility] [address] [id number] [address] [place] [address], [place] [address] March, [facility] [address] [id number] [address] [place] [address], [place] [address] March, [facility] [address] [id number] [address] [place] [address], [place] [address] March, [facility] [address] [id number] [address] [place] [address], [place] [address] March, [facility] [address] [id number] [address] [place] [address], [place] [address] March, [facility] [address] [id number] [address] [place] [address], [place] [address] Feb, [facility] [address] [id number] [address] [place] [address], [place] [address] Feb, [facility] [address] [id number] [facility] [place] [address] Feb, [facility] [address] [id number] [facility] [place] [address] Feb, [facility] [address] [id number] [facility] [place] [address] Jan, [facility] [address] [id number] [address] [place] [address], [place] [address] Jan, [facility] [address] [id number] [address] [place] [address], [place] [address] Jan, [facility] [address] [id number] [address] [place] [address], [place] [address] Jan, [facility] [address] [id number] [address] [place] [address], [place] [address] Jan, [facility] [address] [id number] [address] [place] [address], [place] [address] Jan, [facility] [address] [id number] [address] [place] [address], [place] [address] Jan, [facility] [address] [id number] [address] [place] [address], [place] [address] Jan, [facility] [address] [id number] [address] [place] [address], [place] [address] Jan, [facility] [address] [id number] [address] [place] [address], [place] [address] Jan, [facility] [address] [id number] [address] [place] [address], [place] [address] Jan, [facility] [address] [id number] [address] [place] [address], [place] [address] Jan, [facility] [address] [id number] [address] [place] [address], [place] [address] Dec, [facility] [address] [id number] [address] [place] [address], [place] [address] Dec, [facility] [address] [id number] [address] [place] [address], [place] [address] Dec, [facility] [address] [id number] [address] [place] [address], [place] [address] Dec, [facility] [address] [id number] [address] [place] [address], [place] [address] Dec, [facility] [address] [id number] [address] [place] [address], [place] [address] Dec, [facility] [address] [id number] [address] [place] [address], [place] [address] Nov, [facility] [address] [id number] [address] [place] [address], [place] [address] Nov, [facility] [address] [id number] [address] [place] [address], [place] [address] Oct, [facility] [address] [id number] [address] [place] [address], [place] [address] Oct, [facility] [address] [id number] [address] [place] [address], [place] [address] Oct, [facility] [address] [id number] [address] [place] [address], [place] [address] Oct, [facility] [address] [id number] [address] [place] [address], [place] [address] Oct, [facility] [address] [id number] [address] [place] [address], [place] [address] Oct, [facility] [address] [id number] [address] [place] [address], [place] [address] Sep, [facility] [address] [id number] [address] [place] [address], [place] [address] Sep, [facility] [address] [id number] [address] [place] [address], [place] [address] Sep, [facility] [address] [id number] [address] [place] [address], [place] [address] Sep, [facility] [address] [id number] [address] [place] [address], [place] [address] Aug, [facility] [address] [id number] [address] [place] [address], [place] [address] Aug, [facility] [address] [id number] [address] [place] [address], [place] [address] Aug, [facility] [address] [id number] [address] [place] [address], [place] [address] 17 Jul, 2013 [facility] [address] [id number] [address] [place] [address], [place] [address] 14 Jul, 2013 [facility] [address] [id number] [address] [place] [address], [place] [address] Jul, [facility] [address] [id number] [address] [place] [address], [place] [address] Jun, [facility] [address] [id number] [address] [place] [address], [place] [address] Jun, [facility] [address] [id number] [address] [place] [address], [place] [address] Jun, [facility] [address] [id number] [address] [place] [address], [place] [address] Apr, [facility] [address] [id number] [address] [place] [address], [place] [address] Apr, [facility] [address] [id number] [address] [place] [address], [place] [address] March, [facility] [address] [id number] [address] [place] [address], [place] [address] March, [facility] [address] [id number] [address] [place] [address], [place] [address] March, [facility] [address] [id number] [address] [place] [address], [place] [address] March, [facility] [address] [id number] [address] [place] [address], [place] [address] Feb, [facility] [address] [id number] [address] [place] [address], [place] [address] Jan, [facility] [address] [id number] [address] [place] [address], [place] [address] 13 Dec, 2012 [facility] [address] [id number] [address] [place] [address], [place] [address] 08 Dec, 2012 [facility] [address] [id number] [address] [place] [address], [place] [address] Dec, [facility] [address] [id number] [address] [place] [address], [place] [address] Nov, [facility] [address] [id number] [address] [place] [address], [place] [address] Oct, [facility] [address] [id number] [address] [place] [address], [place] [address] Oct, [facility] [address] [id number] [address] [place] [address], [place] [address] Sep, [facility] [address] [id number] [address] [place] [address], [place] [address] Sep, [facility] [address] [id number] [address] [place] [address], [place] [address] Sep, [facility] [address] [id number] [address] [place] [address], [place] [address] Sep, [facility] [address] [id number] [address] [place] [address], [place] [address] Sep, [facility] [address] [id number] [address] [place] [address], [place] [address] Sep, [facility] [address] [id number] [address] [place] [address], [place] [address] Sep, [facility] [address] [id number] [address] [place] [address], [place] [address] 16 Aug, 2012 [facility] [address] [id number] [address] [place] [address], [place] [address] 16 Aug, 2012 [facility] [address] [id number] [address] [place] [address], [place] [address] 10 Aug, 2012 [facility] [address] [id number] [address] [place] [address], [place] [address] 10 Aug, 2012 [facility] [address] [id number] [address] [place] [address], [place] [address] 08 Aug, 2012 [facility] [address] [id number] [address] [place] [address], [place] [address] Aug, [facility] [address] [id number] [address] [place] [address], [place] [address] Aug, [facility] [address] [id number] [address] [place] [address], [place] [address] Aug, [facility] [address] [id number] [address] [place] [address], [place] [address] Jul, [facility] [address] [id number] [address] [place] [address], [place] [address] Jul, [facility] [address] [id number] [address] [place] [address], [place] [address] Jun, [facility] [address] [id number] [address] [place] [address], [place] [address] May, [facility] [address] [id number] [address] [place] [address], [place] [address] Apr, [facility] [address] [id number] [address] [place] [address], [place] [address] Apr, [facility] [address] [id number] [address] [place] [address], [place] [address] Apr, [facility] [address] [id number] [address] [place] [address], [place] [address] March, [facility] [address] [id number] [address] [place] [address], [place] [address] March, [facility] [address] [id number] [address] [place] [address], [place] [address] March, [facility] [address] [id number] [address] [place] [address], [place] [address] March, [facility] [address] [id number] [address] [place] [address], [place] [address] March, [facility] [address] [id number] [address] [place] [address], [place] [address] March, [facility] [address] [id number] [address] [place] [address], [place] [address] March, [facility] [address] [id number] [address] [place] [address], [place] [address] Jan, [facility] [address] [id number] [address] [place] [address], [place] [address] Jan, [facility] [address] [id number] [address] [place] [address], [place] [address] Jan, [facility] [address] [id number] [address] [place] [address], [place] [address] Jan, [facility] [address] [id number] [address] [place] [address], [place] [address] Jan, [facility] [address] [id number] [address] [place] [address], [place] [address] Dec, [facility] [address] [id number] [address] [place] [address], [place] [address] Dec, [facility] [address] [id number] [address] [place] [address], [place] [address] Nov, [facility] [address] [id number] [address] [place] [address], [place] [address] Nov, [facility] [address] [id number] [address] [place] [address], [place] [address] 06 Nov, 2011 [facility] [address] [id number] [address] [place] [address], [place] [address] Nov, [facility] [address] [id number] [address] [place] [address], [place] [address] Oct, [facility] [address] [id number] [address] [place] [address], [place] [address] Oct, [facility] [address] [id number] [address] [place] [address], [place] [address] 14 Sep, 2011 [facility] [address] [id number] [address] [place] [address], [place] [address] Sep, [facility] [address] [id number] [address] [place] [address], [place] [address] Sep, [facility] [address] [id number] [address] [place] [address], [place] [address] May, [facility] [address] [id number] [address] [place] [address], [place] [address] Nov, [facility] [address] [id number] [address] [place] [address], [place] [address] Oct, [facility] [address] [id number] [address] [place] [address], [place] [address] Oct, [facility] [address] [id number] [address] [place] [address], [place] [address] Oct, [facility] [address] [id number] [address] [place] [address], [place] [address] 15 Sep, 2010 [facility] [address] [id number] [address] [place] [address], [place] [address] Sep, [facility] [address] [id number] [address] [place] [address], [place] [address] Aug, [facility] [address] [id number] [address] [place] [address], [place] [address] March, [facility] [address] [id number] [address] [place] [id number] Oct, [facility] [address] [id number] [address] [place] [phone] Oct, [facility] [address] [id number] [address] [place] [id number] Oct, [facility] [address] [id number] [address] [place] [phone] Oct, [facility] [address] [id number] [address] [place] [phone] Sep, [facility] [address] [id number] [address] [place] [id number] Sep, [facility] [address] [id number] [address] [place] [id number] Sep, [facility] [address] [id number] [address] [place] [phone] Aug, [facility] [address] [id number] [address] [place] [phone] Aug, [facility] [address] [id number] [address] [place] [id number] Aug, [facility] [address] [id number] [address] [place] [id number] Jan, IMMUNIZATIONS No Known Immunizations SOCIAL HISTORY Never Assessed REASON FOR VISIT PLAN OF CARE VITAL SIGNS MEDICATIONS Unknown Medications RESULTS No Results PROCEDURES Procedure Date Ordered Result Body Site GLYCATED HEMOGLOBIN TEST Oct 12, 2014 MICROALBUMIN, SEMIQUANT Oct 12, 2014 COMPREHEN METABOLIC PANEL Oct 12, 2014 VENIPUNCT, ROUTINE* Oct 12, 2014 INSTRUCTIONS MEDICATIONS ADMINISTERED No Known Medications [...]
--- OUTSIDE RECORDS SUMMARY | 2020-06-13 16:48 | XMS REPORT ---
Author Author Jah Durant Doctor Organization [facility] Address Unknown Phone Unavailable Care Team Providers Care Bull Gang Supervisor Name Role Phone Migration, Doctor Unavailable Unavailable PROBLEMS Type Condition ICD9-CM Code [id number] Code Onset Dates Condition S tatus SNOMED Code Problem Neuropathy G62.9 Active 258392197 Problem Chronic pain G89.29 Active 1400770 1 Problem Overactive bladder N32.81 Active 2 74514784 Problem Hypothyroid E03.9 Active 92059436 Problem Irritable bowel syndrome with diarrhea K58.0 Active 177825420 Problem half-way current use of insulin Z79.4 Active 965584708 Problem Type 2 diabetes mellitus with hyperglycemia E11.65 Active 72947256 Problem Chronic obstructive pulmonary disease, unspecified COPD ty pe J44.9 Active 97904702 Problem Gastroesophageal reflux disease with esophagitis K 21.0 Active 399680995 Problem Major depressive disorder, recurrent, in full remission F33.42 Active 97869983 Problem Mixed hyperlipidemia E78.2 Active 261782110 Problem Essential (primary) hypertension I10 Active 45604842 Problem Anxiety disorder, unspecified type F41.9 Active 472857457 Problem Gastroparesis K31.84 Active 866148 006 Problem 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 Active 583099055 ALLERGIES No Information ENCOUNTERS Encounter Location Date Diagnosis [place] [address] [address] [facility] [id number] [address] [place] [phone] Jun, Encounter for Medicare annua l wellness exam Z00.00 ; Type 2 diabetes mellitus with hyperglycemia E11.65 ; Mixed hyperlipidemia E78.2 ; Hypothyroid E03.9 ; Gastroesophageal reflux disease with esophagitis K21.0 ; Essential (primary) hypertension I10 ; Major depressive disorder, recurrent, in full remission F33.42 ; Chronic obstructive pulmonary disease, unspecified COPD type J44.9 ; Neuropathy G62.9 and Encounter for immunization Z23 [place] [facility] [id number] [address] [place] [phone] Jun, [facility], [place] [address] [facility] [id number] [address] [place] [phone] May, Chronic pain G89.29 [facility], [place] [address] [facility] [id number] [address] [place] [phone] May, Type 2 diabetes mellitus wit h hyperglycemia E11.65 and Neuropathy G62.9 [facility], [place] [address] [facility] [id number] [address] [place] [phone] May, Chronic pain G89.29 [facility], [place] [address] [facility] [id number] [address] [place] [phone] Apr, Poison maryam dermatitis L23.7 [facility], [place] [address] [facility] [id number] [address] [place] [phone] Apr, Chronic pain G89.29 [facility], [place] [address] [facility] [id number] [address] [place] [phone] March, Type 2 diabetes mellitus wit h hyperglycemia E11.65 [facility], [place] [address] [facility] [id number] [address] [place] [address] March, Chronic pain G89.29 [facility], [place] [address] [facility] [id number] [address] [place] [phone] March, [address] [address] Feb, [facility], [place] [address] [facility] [id number] [address] [place] [phone] Feb, Other chronic pain G89.29 an d Chronic pain G89.29 [facility], [place] [address] [facility] [id number] [address] [place] [phone] Jan, Mixed hyperlipidemia E78.2 [facility], [place] [address] [facility] [id number] [address] [place] [phone] Jan, Chronic pain G89.29 [facility], [place] [address] [facility] [id number] [address] [place] [phone] Jan, Type 2 diabetes mellitus wit h hyperglycemia E11.65 ; Mixed hyperlipidemia E78.2 ; 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 ; Acquired hypothyroidism E03.9 and Essential (primary) hypertension I10 [facility], [place] [address] [place] [id number] [address] [place] [id number] Dec, Chronic pain G89.29 [facility], [place] [address] [place] [id number] [address] [place] [phone] Nov, Chronic pain G89.29 [facility], [place] [address] [place] [id number] [address] [place] [phone] Nov, [facility], [place] [address] [address] Oct, Chronic pain G89.29 [facility], [place] [address] [address] Oct, [facility], [place] [address] [address] Sep, [facility], [place] [address] [place] [id number] [address] [place] [phone] Sep, Type 2 diabetes mellitus wit h hyperglycemia E11.65 [place] [address] [address] [place] [id number] [address] [place] [phone] 16 Sep, 2018 Chronic pain G89.29 [facility], [place] [address] [place] [id number] [address] [place] [phone] Sep, [facility], [place] [address] [place] [id number] [address] [place] [id number] Sep, Type 2 diabetes mellitus wit h hyperglycemia E11.65 ; Irritable bowel syndrome with diarrhea K58.0 ; Gastroparesis K31.84 ; 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 and Dermatitis L30.9 [facility], [place] [address] [place] [id number] [address] [place] [id number] Aug, Chronic pain G89.29 [facility], [place] [address] [place] [id number] [address] [place] [phone] Jul, Chronic pain G89.29 [facility], [place] [address] [facility] [id number] [address] [place] [phone] Jun, Type 2 diabetes mellitus wit h hyperglycemia E11.65 ; Neuropathy G62.9 ; Recurrent major depressive disorder, in partial remission F33.41 ; Chronic pain G89.29 and Hypertriglyceridemia E78.1 [facility], [place] [address] [facility] [id number] [address] [place] [phone] Jun, Hypothyroid E03.9 [facility], [place] [address] [facility] [id number] [address] [place] [phone] Jun, Major depressive disorder, r ecurrent episode, moderate F33.1 and Anxiety disorder, unspecified type F41.9 [place] [address] [address] [place] [id number] [address] [place] [phone] Jun, [place] [address] [address] [place] [id number] [address] [place] [id number] Jun, Type 2 diabetes mellitus wit h hyperglycemia E11.65 ; 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 ; Recurrent major depressive disorder, in partial remission F33.41 ; Hypothyroid E03.9 ; Candidal dermatitis B37.2 and Weakness generalized R53.1 [place] [facility] [id number] [address] [place] [id number] May, [facility], [place] [address] [facility] [id number] [address] [place] [phone] May, [facility], [place] [address] [facility] [id number] [address] [place] [phone] May, [facility], [place] [address] [facility] [id number] [address] [place] [phone] May, Generalized abdominal pain R 10.84 and Candidal dermatitis B37.2 [facility], [place] [address] [facility] [id number] [address] [place] [phone] May, [place] [address] [address] [facility] [id number] [address] [place] [id number] May, [place] [address] [address] [facility] [id number] [address] [place] [address] May, Nodular radiologic density R 93.8 ; Weight loss, unintentional R63.4 and Pulmonary emphysema, unspecified emphysema type J43.9 [place] [address] [address] [facility] [id number] [address] [place] [id number] May, Chronic pain G89.29 [place] [address] [address] [facility] [id number] [address] [place] [phone] 09 May, 2018 Syncope and collapse R55 ; C hronic fatigue R53.[address] lung screening R91.8 [place] [address] [address] [facility] [id number] [address] [place] [phone] May, [place] [address] [address] [place] [id number] [place] [address] Apr, Chronic fatigue R53.82 ; Abn ormal chest CT R93.8 ; Elevated erythrocyte sedimentation rate R70.0 ; Hypothyroid E03.9 and Recurrent major depressive disorder, in partial remission F33.41 [place] [address] [facility] [id number] [address] [place] [phone] Apr, Hypothyroid E03.9 [place] [address] [place] [id number] [address] [place] [id number] Apr, Depression F32.9 [place] [address] [address] [facility] [id number] [address] [place] [phone] Apr, [place] [address] [facility] [id number] [address] [place] [phone] March, [place] [address] [address] [facility] [id number] [address] [place] [phone] March, Hypothyroid E03.9 [place] [address] [address] [facility] [id number] [address] [place] [phone] March, Diabetes mellitus E11.9 and Hypothyroid E03.9 [place] [address] [address] [facility] [id number] [address] [place] [id number] March, Diabetes mellitus E11.9 [place] [address] [address] [facility] [id number] [address] [place] [phone] March, Hypothyroid E03.9 and Elevat ed liver enzymes R74.8 [place] [address] [address] [facility] [id number] [address] [place] [phone] March, Type 2 diabetes mellitus wit h [...] major depressive disorder, in partial remission F33.41 [place] [address] [place] [id number] [address] [place] [id number] Feb, Chronic pain G89.29 [place] [address] [address] [place] [id number] [address] [place] [id number] Feb, Type 2 diabetes mellitus wit h hyperglycemia E11.65 and Skin lesion of scalp L98.9 [place] [address] [place] [id number] [address] [place] [phone] Feb, [place] [address] [place] [id number] [address] [place] [phone] Jan, Type 2 diabetes mellitus wit h [...] and Irritable bowel syndrome with diarrhea K58.0 [place] [address] [facility] [id number] [address] [place] [phone] Jan, [facility], [place] [address] [id number] [address] [place] [id number] Jan, Controlled substance agreeme nt signed Z79.899 [facility], [place] [address] [facility] [id number] [address] [place] [phone] 08 Dec, 2017 Type 2 diabetes mellitus [...] treatment Z91.19 and Overweight (BMI 25.0-29.9) E66.3 [place] [facility] [id number] [address] [place] [id number] 02 Dec, 2017 Controlled substance agreeme nt signed Z79.899 [place] [facility] [id number] [address] [place] [id number] Nov, Type 2 diabetes mellitus wit h hyperglycemia E11.65 and Current non- adherence to medical treatment Z91.19 [place] [facility] [id number] [address] [place] [address] Nov, [place] [facility] [id number] [address] [place] [phone] Nov, Chronic pain G89.29 [place] [facility] [id number] [address] [place] [phone] Nov, [place] [address] [facility] [id number] [address] [place] [phone] Nov, Hypothyroid E03.9 [place] [address] [facility] [id number] [address] [place] [phone] Nov, Hypothyroid E03.9 [place] [address] [phone] Nov, Pulmonary emphysema, unspeci fied emphysema type J43.9 and Irritable bowel syndrome with diarrhea K58.0 [place] [address] [address] Oct, [place] [address] [address] Oct, [place] [address] [address] Oct, [place] [address] [address] Oct, [place] [address] [address] Oct, Chronic pain G89.29 [place] [address] [address] Oct, Diabetes mellitus E11.9 ; De pression F32.9 ; Mixed hyperlipidemia E78.2 ; Hypotension, unspecified hypotension type I95.9 ; Pulmonary emphysema, unspecified emphysema type J43.9 and Weight loss, unintentional R63.4 [place] [address] [address] Oct, Chronic pain G89.29 [place] [address] [address] Sep, Chronic pain G89.29 [place] [address] [address] Sep, Hypothyroid E03.9 and Diabet es mellitus E11.[address] [address] Aug, Type 2 diabetes mellitus wit h hyperglycemia E11.65 ; half-way current use of insulin Z79.4 ; Essential (primary) hypertension I10 ; Hypothyroid E03.9 ; Neuropathy G62.9 ; Chronic pain G89.29 ; Mixed hy perlipidemia E78.2 and Encounter for immunization Z23 [facility], [place] [address] [facility] [id number] [address] [place] [phone] Aug, Chronic pain G89.29 [facility], [place] [address] [facility] [id number] [address] [place] [address] Aug, Overactive bladder N32.81 ; Diabetes mellitus E11.9 and Chronic pain G89.29 [facility], [place] [address] [facility] [id number] [address] [place] [id number] Jul, [facility], [place] [address] [facility] [id number] [address] [place] [id number] Jun, [facility], [place] [address] [place] [id number] [address] [place] [phone] Jun, [facility], [place] [address] [place] [id number] [address] [place] [phone] Jun, Hypothyroid E03.9 [facility], [place] [address] [facility] [id number] [address] [place] [phone] Jun, Diabetes mellitus E11.9 ; Hy pothyroid E03.9 ; Neuropathy G62.9 ; Chronic pain G89.29 and Neck mass R22.1 [facility], [place] [address] [facility] [id number] [address] [place] [id number] Apr, [facility], [place] [address] [place] [id number] [address] [place] [phone] Apr, Acute cystitis without hemat uria N30.00 [facility], [place] [address] [facility] [id number] [address] [place] [phone] March, [facility], [place] [address] [place] [id number] [address] [place] [phone] March, [facility], [place] [address] [facility] [id number] [address] [place] [phone] March, Near syncope R55 [facility], [place] [address] [place] [id number] [place] [address] Feb, [facility], [place] [address] [facility] [id number] [address] [place] [address] Feb, Chronic pain G89.29 [facility], [place] [address] [facility] [id number] [address] [place] [phone] Feb, [facility], [place] [address] [facility] [id number] [address] [place] [phone] Feb, [facility], [place] [address] [facility] [id number] [address] [place] [id number] Jan, Chronic pain G89.29 [facility], [place] [address] [place] [id number] [address] [place] [phone] Jan, [facility], [place] [address] [place] [id number] [address] [place] [phone] Jan, [facility], [place] [id number] [place] [id number] 14 Jan, 2017 Diabetes mellitus E11.9 ; Hy pothyroid E03.9 ; GERD (gastroesophageal reflux disease) K21.9 ; Insomnia G47.00 ; Functional 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 ; Neuropathy G62.9 ; Depression F32.9 ; Chronic pain G89.29 ; Irritable bowel syndrome with diarrhea K58.0 ; Overactive bladder N32.81 ; Mixed hyperlipidemia E78.2 and Bronchitis J40 [facility] [place] [address] [facility] [id number] [address] [place] [phone] Dec, [facility], [place] [address] [facility] [id number] [address] [place] [phone] Dec, [facility], [place] [address] [place] [id number] [address] [place] [phone] Dec, [facility], [place] [address] [place] [id number] [address] [place] [phone] Dec, [facility], [place] [address] [place] [id number] [address] [place] [address] Dec, Chronic pain G89.29 [facility], [place] [id number] [place] [phone] Dec, [facility], [place] [address] [place] [id number] [address] [place] [address] Dec, [place] [address] [address] Dec, Type 2 diabetes mellitus wit h foot ulcer E11.621 [facility], [place] [address] [place] [id number] [address] [place] [address] Dec, Type 2 diabetes mellitus wit h foot ulcer E11.621 [place] [address] [address] 14 Dec, 2016 HTN (hypertension) I10 ; Dep ression F32.9 ; Type 2 diabetes mellitus with foot ulcer E11.621 ; Functional diarrhea K59.1 ; Irritable bowel syndrome with diarrhea K58.0 ; Chronic pain G89.29 ; Insomnia G47.00 ; Overactive bladder N32.81 ; Mixed hyperlipidemia E78.2 ; Gastroesophageal reflux disease with esophagitis K21.0 and Acquired hypothyroidism E03.9 [place] [place] [id number] [address] [place] [phone] Nov, [place] [address] [address] Oct, [place] [address] [address] Oct, [place] [address] [address] Oct, [place] [address] [address] Sep, Functional diarrhea 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 ; HTN (hypertension) I10 ; Diabetes mellitus E11.9 ; Depression F32.9 ; Overactive bladder N32.81 ; Mixed hyperlipidemia E78.2 ; Gastroesophageal reflux disease without esophagitis K21.9 ; Chronic pain G89.29 ; Insomnia G47.00 and Acquired hypothyroidism E03.9 [place] [address] [address] Sep, [place] [address] [address] Aug, Encounter for immunization Z 23 [place] [address] [address] Aug, [place] [address] [address] Jul, [place] [address] [address] Jun, Type 2 diabetes mellitus wit hout complications E11.9 ; HTN (hypertension) I10 ; Hypothyroid E03.9 ; Neuropathy G62.9 ; Depression F32.9 ; Chronic pain G89.29 ; GERD (gastroesophageal reflux disease) K21.9 ; Insomnia G47.00 ; Overactive bladder N32.81 ; Mixed hyperlipidemia E78.2 ; Diarrhea of infectious origin A09 and Environmental allergies Z91.09 [place] [address] [address] Apr, [place] [address] [address] March, Hypothyroidism, unspecified E03.9 and Mixed hyperlipidemia E78.2 [place] [address] [address] March, Diabetes mellitus E11.9 ; HT N (hypertension) I10 ; Hypothyroid E03.9 ; Depression F32.9 ; Overactive bladder N32.81 ; Other chronic pain G89.29 ; Lumbago with sciatica, unspecified side M54.40 ; Environmental allergies Z91.09 and Gastroesophageal reflux disease, esophagitis presence not specified K21.9 [place] [address] [address] March, [place] [address] [address] 11 Jan, 2016 HTN (hypertension) I10 ; Hyp othyroid E03.9 ; Neuropathy G62.9 ; Diabetes mellitus E11.9 ; Chronic pain G89.29 ; GERD (gastroesophageal reflux disease) K21.9 ; Overactive bladder N32.81 and Depression F32.9 [place] [address] [address] 12 Dec, 2015 Ear pain, left H92.02 ; HTN (hypertension) I10 ; Hypothyroid E03.9 ; Neuropathy G62.9 ; Diabetes mellitus E11.9 ; Depression F32.9 ; GERD (gastroesophageal reflux disease) K21.9 ; Insomnia G47.00 and Overactive bladder N32.81 [place] [address] [address] Nov, Overactive bladder N32.81 an d Chronic pain G89.29 [place] [address] [address] Nov, Kidney failure N19 [place] [address] [address] Nov, [place] [address] [address] Nov, [place] [address] [address] Nov, Diabetes mellitus E11.9 ; De pression F32.9 ; Chronic pain G89.29 ; GERD (gastroesophageal reflux disease) K21.9 ; Insomnia G47.00 ; HTN (hypertension) I10 ; Hypothyroid E03.9 ; COPD (chronic obstructive pulmonary disease) J44.9 ; Bladder incontinence R32 and Incontinence R32 [place] [address] [address] Sep, Type 2 diabetes mellitus wit h foot ulcer E11.621 and Chromosomal abnormality, 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 [place] [address] [address] Sep, [place] [address] [address] Aug, [place] [address] [address] Aug, [place] [address] [address] Aug, HTN (hypertension) I10 ; Enc ounter for immunization Z23 ; Hypothyroid E03.9 ; Neuropathy G62.9 ; Diabetes mellitus E11.9 ; Depression F32.9 ; Chronic pain G89.29 ; GERD (gastroesophageal reflux disease) K21.9 ; Insomnia G47.00 and COPD (chronic obstructive pulmonary disease) J44.9 [place] [address] [address] Jun, [address] [address] Jun, [place] [address] [address] May, Essential hypertension, ivis gn 401.1 ; Unspecified hypothyroidism 244.9 ; Insomnia, unspecified 780.52 ; Shortness of breath 786.05 ; Depression 311 ; COPD (chronic obstructive pulmonary disease) 496 ; GERD (gastroesophageal reflux disease) 530.81 and Diabetes 1.5, 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 [place] [address] [address] May, [place] [address] [address] May, [address] [address] May, Shortness of breath 786.05 ; Essential hypertension, benign 401.1 ; Diabetes mellitus 250.00 ; Hyperlipidemia 272.4 ; Hypothyroid 244.9 ; Insomnia 780.52 and Cough 786.[address] [id number] [address] [place] [id number] Apr, [facility] [address] [id number] [address] [place] [id number] March, Shortness of breath 786.05 ; Nausea with vomiting 787.01 ; Essential hypertension, benign 401.1 ; Diabetes mellitus 250.00 ; Hyperlipidemia 272.4 and Hypothyroid 244.9 [facility] [place] [address] [id number] [address] [place] [phone] Feb, [facility] [place] [address] [id number] [address] [place] [id number] Feb, [facility] [address] [id number] [address] [place] [address] Jan, [facility] [address] [id number] [address] [place] [address] Jan, [facility] [place] [address] [id number] [address] [place] [address] Jan, [facility] [address] [id number] [address] [place] [address] Jan, [facility] [address] [id number] [address] [place] [address] Jan, [facility] [address] [id number] [address] [place] [address] Jan, [facility] [address] [id number] [address] [place] [id number] Jan, [facility] [address] [id number] [address] [place] [id number] Jan, [facility] [address] [id number] [address] [place] [address] Jan, [facility] [address] [id number] [address] [place] [address] Jan, [facility] [address] [id number] [address] [place] [id number] Dec, 2014 [facility] [address] [id number] [address] [place] [address], [place] [address] Dec, 2014 [facility] [address] [id number] [address] [place] [address], [place] [address] Dec, 2014 [facility] [address] [id number] [address] [place] [address], [place] [address] Dec, 2014 [facility] [address] [id number] [address] [place] [address], [place] [address] Dec, 2014 [facility] [address] [id number] [address] [place] [address], [place] [address] Dec, 2014 [facility] [address] [id number] [address] [place] [address], [place] [address] Dec, 2014 [facility] [address] [id number] [address] [place] [address], [place] [address] Dec, 2014 [facility] [address] [id number] [address] [place] [address], [place] [address] Dec, 2014 [facility] [address] [id number] [address] [place] [address], [place] [address] Dec, 2014 [facility] [address] [id number] [address] [place] [address], [place] [address] Oct, [facility] [address] [id number] [address] [place] [address], [place] [address] Oct, [facility] [address] [id number] [address] [place] [address], [place] [address] Oct, [facility] [address] [id number] [address] [place] [address], [place] [address] Oct, [facility] [address] [id number] [address] [place] [address], [place] [address] Oct, [facility] [address] [id number] [address] [place] [address], [place] [address] Oct, [facility] [address] [id number] [address] [place] [address], [place] [address] 05 Oct, 2014 [facility] [address] [id number] [address] [place] [address], [place] [address] Oct, [facility] [address] [id number] [address] [place] [address], [place] [address] Oct, [facility] [address] [id number] [address] [place] [address], [place] [address] Oct, [facility] [address] [id number] [address] [place] [address], [place] [address] Oct, [facility] [address] [id number] [address] [place] [address], [place] [address] Oct, [facility] [address] [id number] [address] [place] [address], [place] [address] Oct, [facility] [address] [id number] [address] [place] [address], [place] [address] Oct, [facility] [address] [id number] [address] [place] [address], [place] [address] Sep, [facility] [address] [id number] [address] [place] [address], [place] [address] Sep, [facility] [address] [id number] [address] [place] [address], [place] [address] Sep, [facility] [address] [id number] [address] [place] [address], [place] [address] Sep, [facility] [address] [id number] [address] [place] [address], [place] [address] Sep, [facility] [address] [id number] [address] [place] [address], [place] [address] Sep, [facility] [address] [id number] [address] [place] [address], [place] [address] Sep, [facility] [address] [id number] [address] [place] [address] Sep, [facility] [address] [id number] [address] [place] [address], [place] [address] Sep, [facility] [address] [id number] [address] [place] [address], [place] [address] Aug, [facility] [address] [id number] [address] [place] [address], [place] [address] Aug, [facility] [address] [id number] [address] [place] [address], [place] [address] Aug, [facility] [address] [id number] [address] [place] [address], [place] [address] 17 Aug, 2014 [facility] [address] [id number] [address] [place] [address], [place] [address] 16 Aug, 2014 [facility] [address] [id number] [address] [place] [address], [place] [address] Aug, [facility] [address] [id number] [address] [place] [address], [place] [address] Aug, [facility] [address] [id number] [address] [place] [address], [place] [address] Aug, [facility] [address] [id number] [address] [place] [address] Aug, [facility] [address] [id number] [address] [place] [address], [place] [address] 29 Jul, 2013 [facility] [address] [id number] [address] [place] [address] 29 Jul, 2013 [facility] [address] [id number] [address] [place] [address], [place] [address] 25 Jul, 2013 [facility] [address] [id number] [address] [place] [address], [place] [address] 25 Jul, 2013 [facility] [address] [id number] [address] [place] [address], [place] [address] 25 Jul, 2013 [facility] [address] [id number] [address] [place] [address] Jul, 2013 [facility] [address] [id number] [address] [place] [address] Jul, [facility] [address] [id number] [address] [place] [address] Jul, [facility] [address] [id number] [address] [place] [address] Jul, [facility] [address] [id number] [address] [place] [address] Jul, [facility] [address] [id number] [address] [place] [address], [place] [address] Jun, [facility] [address] [id number] [address] [place] [address], [place] [address] Jun, [facility] [address] [id number] [address] [place] [address], [place] [address] Jun, [facility] [address] [id number] [address] [place] [address], [place] [address] Jun, [facility] [address] [id number] [address] [place] [address], [place] [address] Jun, [facility] [address] [id number] [address] [place] [address], [place] [address] Jun, [facility] [address] [id number] [address] [place] [address], [place] [address] Jun, [facility] [address] [id number] [address] [place] [address], [place] [address] Jun, [facility] [address] [id number] [address] [place] [address], [place] [address] Jun, [facility] [address] [id number] [address] [place] [address], [place] [address] Jun, [facility] [address] [id number] [address] [place] [address], [place] [address] Jun, [facility] [address] [id number] [address] [place] [address] Jun, [facility] [address] [id number] [address] [place] [address], [place] [address] May, [facility] [address] [id number] [address] [place] [address], [place] [address] May, [facility] [address] [id number] [address] [place] [address], [place] [address] May, [facility] [address] [id number] [address] [place] [address], [place] [address] May, [facility] [address] [id number] [address] [place] [address], [place] [address] May, [facility] [address] [id number] [address] [place] [address], [place] [address] May, [facility] [address] [id number] [address] [place] [address], [place] [address] March, [facility] [address] [id number] [address] [place] [address], [place] [address] March, [facility] [address] [id number] [address] [place] [address], [place] [address] March, [facility] [address] [id number] [address] [place] [address], [place] [address] March, [facility] [address] [id number] [address] [place] [address], [place] [address] March, [facility] [address] [id number] [address] [place] [address], [place] [address] March, [facility] [address] [id number] [address] [place] [address], [place] [address] Feb, [facility] [address] [id number] [address] [place] [address], [place] [address] Feb, [facility] [address] [id number] [address] [place] [address] Feb, [facility] [address] [id number] [address] [place] [address], [place] [address] Feb, [facility] [address] [id number] [address] [place] [address], [place] [address] Jan, [facility] [address] [id number] [address] [place] [address], [place] [address] Jan, [facility] [address] [id number] [address] [place] [address], [place] [address] Jan, [facility] [address] [id number] [address] [place] [address], [place] [address] Jan, [facility] [address] [id number] [address] [place] [address], [place] [address] Jan, [facility] [address] [id number] [address] [place] [address], [place] [address] Jan, [facility] [address] [id number] [address] [place] [address], [place] [address] Jan, [facility] [address] [id number] [address] [place] [address], [place] [address] Jan, [facility] [address] [id number] [address] [place] [address], [place] [address] Jan, [facility] [address] [id number] [address] [place] [address], [place] [address] Jan, [facility] [address] [id number] [address] [place] [address], [place] [address] Jan, [facility] [address] [id number] [address] [place] [address], [place] [address] Jan, [facility] [address] [id number] [address] [place] [address], [place] [address] Dec, [facility] [address] [id number] [address] [place] [address], [place] [address] Dec, [facility] [address] [id number] [address] [place] [address], [place] [address] Dec, [facility] [address] [id number] [address] [place] [address], [place] [address] Dec, [facility] [address] [id number] [address] [place] [address], [place] [address] Dec, [facility] [address] [id number] [address] [place] [address], [place] [address] Dec, [facility] [address] [id number] [address] [place] [address], [place] [address] Nov, [facility] [address] [id number] [address] [place] [address], [place] [address] Nov, [facility] [address] [id number] [address] [place] [address], [place] [address] Oct, [facility] [address] [id number] [address] [place] [address], [place] [address] Oct, [facility] [address] [id number] [address] [place] [address], [place] [address] Oct, [facility] [address] [id number] [address] [place] [address], [place] [address] Oct, [facility] [address] [id number] [address] [place] [address], [place] [address] Oct, [facility] [address] [id number] [address] [place] [address], [place] [address] Oct, [facility] [address] [id number] [address] [place] [address], [place] [address] Sep, [facility] [address] [id number] [address] [place] [address], [place] [address] Sep, [facility] [address] [id number] [address] [place] [address], [place] [address] Sep, [facility] [address] [id number] [address] [place] [address], [place] [address] Sep, [facility] [address] [id number] [address] [place] [address], [place] [address] Aug, [facility] [address] [id number] [address] [place] [address], [place] [address] Aug, [facility] [address] [id number] [address] [place] [address], [place] [address] Aug, [facility] [address] [id number] [address] [place] [address], [place] [address] Jul, [facility] [address] [id number] [address] [place] [address], [place] [address] 14 Jul, 2013 [facility] [address] [id number] [address] [place] [address], [place] [address] Jul, [facility] [address] [id number] [address] [place] [address], [place] [address] Jun, [facility] [address] [id number] [address] [place] [address], [place] [address] Jun, [facility] [address] [id number] [address] [place] [address], [place] [address] Jun, [facility] [address] [id number] [address] [place] [address], [place] [address] Apr, [facility] [address] [id number] [address] [place] [address], [place] [address] Apr, [facility] [address] [id number] [address] [place] [address], [place] [address] March, [facility] [address] [id number] [address] [place] [address], [place] [address] March, [facility] [address] [id number] [address] [place] [address], [place] [address] March, [facility] [address] [id number] [address] [place] [address], [place] [address] March, [facility] [address] [id number] [address] [place] [address], [place] [address] Feb, [facility] [address] [id number] [address] [place] [address], [place] [address] Jan, [facility] [address] [id number] [address] [place] [address], [place] [address] 13 Dec, 2012 [facility] [address] [id number] [address] [place] [address], [place] [address] 08 Dec, 2012 [facility] [address] [id number] [address] [place] [address], [place] [address] Dec, [facility] [address] [id number] [address] [place] [address], [place] [address] Nov, [facility] [address] [id number] [address] [place] [address], [place] [address] Oct, [facility] [address] [id number] [address] [place] [address], [place] [address] Oct, [facility] [address] [id number] [address] [place] [address], [place] [address] Sep, [facility] [address] [id number] [address] [place] [address], [place] [address] Sep, [facility] [address] [id number] [address] [place] [address], [place] [address] Sep, [facility] [address] [id number] [address] [place] [address], [place] [address] Sep, [facility] [address] [id number] [address] [place] [address], [place] [address] Sep, [facility] [address] [id number] [address] [place] [address], [place] [address] Sep, [facility] [address] [id number] [address] [place] [address], [place] [address] Sep, [facility] [address] [id number] [address] [place] [address], [place] [address] 16 Aug, 2012 [facility] [address] [id number] [address] [place] [address], [place] [address] 16 Aug, 2012 [facility] [address] [id number] [address] [place] [address], [place] [address] Aug, [facility] [address] [id number] [address] [place] [address], [place] [address] Aug, [facility] [address] [id number] [address] [place] [address], [place] [address] Aug, [facility] [address] [id number] [address] [place] [address], [place] [address] Aug, [facility] [address] [id number] [address] [place] [address], [place] [address] Aug, [facility] [address] [id number] [address] [place] [address], [place] [address] Aug, [facility] [address] [id number] [address] [place] [address], [place] [address] Jul, [facility] [address] [id number] [address] [place] [address], [place] [address] Jul, [facility] [address] [id number] [address] [place] [address], [place] [address] Jun, [facility] [address] [id number] [address] [place] [address], [place] [address] May, [facility] [address] [id number] [address] [place] [address], [place] [address] Apr, [facility] [address] [id number] [address] [place] [address], [place] [address] Apr, [facility] [address] [id number] [address] [place] [address], [place] [address] Apr, [facility] [address] [id number] [address] [place] [address], [place] [address] March, [facility] [address] [id number] [address] [place] [address], [place] [address] March, [facility] [address] [id number] [address] [place] [address], [place] [address] March, [facility] [address] [id number] [address] [place] [address], [place] [address] March, [facility] [address] [id number] [address] [place] [address], [place] [address] March, [facility] [address] [id number] [address] [place] [address], [place] [address] March, [facility] [address] [id number] [address] [place] [address], [place] [address] March, [facility] [address] [id number] [address] [place] [address], [place] [address] Jan, [facility] [address] [id number] [address] [place] [address], [place] [address] Jan, [facility] [address] [id number] [address] [place] [address], [place] [address] Jan, [facility] [address] [id number] [address] [place] [address], [place] [address] Jan, [facility] [address] [id number] [address] [place] [address], [place] [address] Jan, [facility] [address] [id number] [address] [place] [address], [place] [address] Dec, [facility] [address] [id number] [address] [place] [address], [place] [address] Dec, [facility] [address] [id number] [address] [place] [address], [place] [address] Nov, [facility] [address] [id number] [address] [place] [address], [place] [address] Nov, [facility] [address] [id number] [address] [place] [address], [place] [address] Nov, [facility] [address] [id number] [address] [place] [address], [place] [address] Nov, [facility] [address] [id number] [address] [place] [address], [place] [address] Oct, [facility] [address] [id number] [address] [place] [address], [place] [address] Oct, [facility] [address] [id number] [address] [place] [address], [place] [address] 14 Sep, 2011 [facility] [address] [id number] [address] [place] [address], [place] [address] Sep, [facility] [address] [id number] [address] [place] [address], [place] [address] Sep, [facility] [address] [id number] [address] [place] [address], [place] [address] May, [facility] [address] [id number] [address] [place] [address], [place] [address] Nov, [facility] [address] [id number] [address] [place] [address], [place] [address] Oct, [facility] [address] [id number] [address] [place] [address], [place] [address] Oct, [facility] [address] [id number] [address] [place] [address], [place] [address] Oct, [facility] [address] [id number] [address] [place] [address], [place] [address] Sep, [facility] [address] [id number] [address] [place] [address], [place] [address] Sep, [facility] [address] [id number] [address] [place] [address], [place] [address] Aug, [facility] [address] [id number] [address] [place] [address], [place] [address] March, [facility] [address] [id number] [address] [place] [address] Oct, [facility] [place] [address] [id number] [address] [place] [address] Oct, [facility] [place] [address] [id number] [address] [place] [address] Oct, [facility] [place] [address] [id number] [address] [place] [address] Oct, [facility] [place] [address] [id number] [address] [place] [address] Sep, [facility] [place] [address] [id number] [address] [place] [address] Sep, [facility] [place] [address] [id number] [address] [place] [address] Sep, [facility] [place] [address] [id number] [address] [place] [address] Aug, [facility] [place] [address] [id number] [address] [place] [id number] Aug, [facility] [place] [address] [id number] [address] [place] [id number] Aug, [facility] [place] [address] [id number] [address] [place] [address] [id number] Jan, IMMUNIZATIONS No Known Immunizations SOCIAL HISTORY [...]
[2020-06-13 16:49] LABS: BILIRUBIN,TOTAL 0.5 MG/DL (0.1-1.0)
--- OUTSIDE RECORDS SUMMARY | 2020-06-13 16:49 | XMS REPORT ---
Author Author Jah Durant Doctor Organization [facility] Address Unknown Phone Unavailable Care Team Providers Care Bottom Brusher Name Role Phone Migration, Doctor Unavailable Unavailable PROBLEMS Type Condition ICD9-CM Code PAF44-LA Code Onset Dates Condition S tatus SNOMED Code Problem Neuropathy G62.9 Active 620477252 Problem Chronic pain G89.29 Active 7527030 1 Problem Overactive bladder N32.81 Active 2 39968070 Problem Hypothyroid E03.9 Active 02189781 Problem Irritable bowel syndrome with diarrhea K58.0 Active 485276083 Problem longterm current use of insulin Z79.4 Active 852454379 Problem Type 2 diabetes mellitus with hyperglycemia E11.65 Active 90053409 Problem Chronic obstructive pulmonary disease, unspecified COPD ty pe J44.9 Active 70930295 Problem Gastroesophageal reflux disease with esophagitis K 21.0 Active 915938442 Problem Major depressive disorder, recurrent, in full remission F33.42 Active 64869479 Problem Mixed hyperlipidemia E78.2 Active 850585276 Problem Essential (primary) hypertension I10 Active 39084153 Problem Anxiety disorder, unspecified type F41.9 Active 362035586 Problem Gastroparesis K31.84 Active 706309 006 Problem 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 Active [id number] ALLERGIES No Information ENCOUNTERS Encounter Location Date Diagnosis [place] [address] [address] [facility] [id number] [address] [place] [id number] Jun, Encounter for Medicare annua l wellness [...] and Encounter for immunization Z23 [place] [facility] [id number] [address] [place] [id number] Jun, [facility] [address] [facility] [id number] [address] [place] [address] May, Chronic pain G89.29 [facility] [address] [facility] [id number] [address] [place] [address] May, Type 2 diabetes mellitus wit h hyperglycemia E11.65 and Neuropathy G62.9 [facility] [address] [facility] [id number] [address] [place] [address] May, Chronic pain G89.29 [facility] [address] [facility] [id number] [address] [place] [address] Apr, Poison maryam dermatitis L23.7 [facility] [address] [facility] [id number] [address] [place] [address] Apr, Chronic pain G89.29 [facility] [address] [facility] [id number] [address] [place] [address] March, Type 2 diabetes mellitus wit h hyperglycemia E11.65 [facility] [address] [facility] [id number] [address] [place] [address] March, Chronic pain G89.29 [facility] [address] [facility] [id number] [address] [place] [address] March, [address] [address] Feb, [facility] [address] [facility] [id number] [address] [place] [address] Feb, Other chronic pain G89.29 an d Chronic pain G89.29 [facility] [address] [facility] [id number] [address] [place] [address] Jan, Mixed hyperlipidemia E78.2 [facility] [address] [facility] [id number] [address] [place] [address] Jan, Chronic pain G89.29 [facility] [address] [facility] [id number] [address] [place] [address] Jan, Type 2 diabetes mellitus wit h hyperglycemia E11.65 ; Mixed hyperlipidemia E78.2 ; 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 ; Acquired hypothyroidism E03.9 and Essential (primary) hypertension I10 [facility] [address] [place] [id number] [address] [place] [address] Dec, Chronic pain G89.29 [facility] [address] [place] [id number] [address] [place] [address] Nov, Chronic pain G89.29 [facility] [address] [place] [id number] [address] [place] [address] Nov, [facility] [address] [address] Oct, Chronic pain G89.29 [facility] [address] [address] Oct, [facility] [address] [address] Sep, [facility] [address] [place] [id number] [address] [place] [address] Sep, Type 2 diabetes mellitus wit h hyperglycemia E11.65 [place] [address] [address] [place] [id number] [address] [place] [id number] 16 Sep, 2018 Chronic pain G89.29 [facility] [address] [place] [id number] [address] [place] [address] Sep, [facility] [address] [place] [id number] [address] [place] [address] Sep, Type 2 diabetes mellitus wit h hyperglycemia E11.65 ; Irritable bowel syndrome with diarrhea K58.0 ; Gastroparesis K31.84 ; 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 and Dermatitis L30.9 [facility] [address] [place] [id number] [address] [place] [id number] Aug, Chronic pain G89.29 [facility] [address] [place] [id number] [address] [place] [address] Jul, Chronic pain G89.29 [facility] [address] [facility] [id number] [address] [place] [id number] Jun, Type 2 diabetes mellitus wit h hyperglycemia E11.65 ; Neuropathy G62.9 ; Recurrent major depressive disorder, in partial remission F33.41 ; Chronic pain G89.29 and Hypertriglyceridemia E78.1 [facility] [address] [facility] [id number] [address] [place] [address] Jun, Hypothyroid E03.9 [facility] [address] [facility] [id number] [address] [place] [phone] Jun, Major depressive disorder, r ecurrent episode, moderate F33.1 and Anxiety disorder, unspecified type F41.9 [place] [address] [address] [place] [id number] [address] [place] [phone] Jun, [place] [address] [address] [place] [id number] [address] [place] [address] Jun, Type 2 diabetes mellitus wit h hyperglycemia E11.65 ; 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 ; Recurrent major depressive disorder, in partial remission F33.41 ; Hypothyroid E03.9 ; Candidal dermatitis B37.2 and Weakness generalized R53.1 [place] [facility] [id number] [address] [place] [id number] May, [facility] [address] [facility] [id number] [address] [place] [address] May, [facility] [address] [facility] [id number] [address] [place] [address] May, [facility] [address] [facility] [id number] [address] [place] [address] May, Generalized abdominal pain R 10.84 and Candidal dermatitis B37.2 [facility] [address] [facility] [id number] [address] [place] [phone] May, [place] [address] [address] [facility] [id number] [address] [place] [address] May, [place] [address] [address] [facility] [id number] [address] [place] [phone] May, Nodular radiologic density R 93.8 ; Weight loss, unintentional R63.4 and Pulmonary emphysema, unspecified emphysema type J43.9 [place] [address] [address] [facility] [id number] [address] [place] [address] May, Chronic pain G89.29 [place] [address] [address] [facility] [id number] [address] [place] [id number] 09 May, 2018 Syncope and collapse R55 ; C hronic fatigue R53.[address] lung screening R91.8 [place] [address] [address] [facility] [id number] [address] [place] [address] May, [place] [address] [address] [place] [id number] [place] [address] Apr, Chronic fatigue R53.82 ; Abn ormal chest CT R93.8 ; Elevated erythrocyte sedimentation rate R70.0 ; Hypothyroid E03.9 and Recurrent major depressive disorder, in partial remission F33.41 [place] [address] [address] [facility] [id number] [address] [place] [phone] Apr, Hypothyroid E03.9 [place] [address] [address] [place] [id number] [address] [place] [id number] Apr, Depression F32.9 [place] [address] [address] [facility] [id number] [address] [place] [id number] Apr, [place] [address] [facility] [id number] [address] [place] [id number] March, [place] [address] [address] [facility] [id number] [address] [place] [address] March, Hypothyroid E03.9 [place] [address] [address] [facility] [id number] [address] [place] [address] March, Diabetes mellitus E11.9 and Hypothyroid E03.9 [place] [address] [address] [facility] [id number] [address] [place] [address] March, Diabetes mellitus E11.9 [place] [address] [address] [facility] [id number] [address] [place] [address] March, Hypothyroid E03.9 and Elevat ed liver enzymes R74.8 [place] [address] [address] [facility] [id number] [address] [place] [phone] March, Type 2 diabetes mellitus wit h [...] major depressive disorder, in partial remission F33.41 [place] [address] [place] [id number] [address] [place] [address] Feb, Chronic pain G89.29 [place] [address] [place] [id number] [address] [place] [address] Feb, Type 2 diabetes mellitus wit h hyperglycemia E11.65 and Skin lesion of scalp L98.9 [place] [address] [place] [id number] [address] [place] [address] Feb, [place] [address] [place] [id number] [address] [place] [phone] Jan, Type 2 diabetes mellitus wit h [...] and Irritable bowel syndrome with diarrhea K58.0 [place] [address] [facility] [id number] [address] [place] [id number] Jan, [facility] [address] [id number] [address] [place] [id number] Jan, Controlled substance agreeme nt signed Z79.899 [facility] [address] [facility] [id number] [address] [place] [id number] 08 Dec, 2017 Type 2 diabetes mellitus [...] treatment Z91.19 and Overweight (BMI 25.0-29.9) E66.3 [place] [facility] [id number] [address] [place] [id number] 02 Dec, 2017 Controlled substance agreeme nt signed Z79.899 [place] [address] [facility] [id number] [address] [place] [address] Nov, Type 2 diabetes mellitus wit h hyperglycemia E11.65 and Current non- adherence to medical treatment Z91.19 [place] [address] [facility] [id number] [address] [place] [id number] Nov, [place] [address] [facility] [id number] [address] [place] [address] Nov, Chronic pain G89.29 [place] [address] [facility] [id number] [address] [place] [id number] Nov, [place] [address] [address] [facility] [id number] [address] [place] [address] Nov, Hypothyroid E03.9 [place] [address] [address] [facility] [id number] [address] [place] [address] Nov, Hypothyroid E03.9 [place] [address] [address] Nov, Pulmonary emphysema, unspeci fied emphysema type J43.9 and Irritable bowel syndrome with diarrhea K58.0 [place] [address] [address] Oct, [place] [address] [address] Oct, [place] [address] [address] Oct, [place] [address] [address] Oct, [place] [address] [address] Oct, Chronic pain G89.29 [place] [address] [address] Oct, Diabetes mellitus E11.9 ; De pression F32.9 ; Mixed hyperlipidemia E78.2 ; Hypotension, unspecified hypotension type I95.9 ; Pulmonary emphysema, unspecified emphysema type J43.9 and Weight loss, unintentional R63.4 [place] [address] [address] Oct, Chronic pain G89.29 [place] [address] [address] Sep, Chronic pain G89.29 [place] [address] [address] Sep, Hypothyroid E03.9 and Diabet es mellitus E11.[address] [address] Aug, Type 2 diabetes mellitus wit h hyperglycemia E11.65 ; longterm current use of insulin Z79.4 ; Essential (primary) hypertension I10 ; Hypothyroid E03.9 ; Neuropathy G62.9 ; Chronic pain G89.29 ; Mixed hy perlipidemia E78.2 and Encounter for immunization Z23 [facility] [address] [facility] [id number] [address] [place] [address] Aug, Chronic pain G89.29 [facility] [address] [facility] [id number] [address] [place] [address] Aug, Overactive bladder N32.81 ; Diabetes mellitus E11.9 and Chronic pain G89.29 [facility] [address] [facility] [id number] [address] [place] [address] Jul, [facility] [address] [facility] [id number] [address] [place] [id number] Jun, [facility] [address] [place] [id number] [address] [place] [id number] Jun, [facility] [address] [place] [id number] [address] [place] [id number] Jun, Hypothyroid E03.9 [facility] [address] [facility] [id number] [address] [place] [address] Jun, Diabetes mellitus E11.9 ; Hy pothyroid E03.9 ; Neuropathy G62.9 ; Chronic pain G89.29 and Neck mass R22.1 [facility] [address] [facility] [id number] [address] [place] [id number] Apr, [facility] [address] [place] [id number] [address] [place] [id number] Apr, Acute cystitis without hemat uria N30.00 [facility] [address] [facility] [id number] [address] [place] [address] March, [facility] [address] [place] [id number] [address] [place] [id number] March, [facility] [address] [facility] [id number] [address] [place] [address] March, Near syncope R55 [facility] [address] [place] [id number] [place] [address] Feb, [facility] [address] [facility] [id number] [address] [place] [address] Feb, Chronic pain G89.29 [facility] [address] [facility] [id number] [address] [place] [address] Feb, [facility] [address] [facility] [id number] [address] [place] [id number] Feb, [facility] [address] [facility] [id number] [address] [place] [address] Jan, Chronic pain G89.29 [facility] [address] [place] [id number] [address] [place] [address] Jan, [facility] [address] [place] [id number] [address] [place] [address] Jan, [facility] [address] [place] [address] 14 Jan, 2017 Diabetes mellitus E11.9 ; Hy pothyroid E03.9 ; GERD (gastroesophageal reflux disease) K21.9 ; Insomnia G47.00 ; Functional diarrhea K59.1 ; Neuropathy G62.9 ; Depression F32.9 ; Chronic pain G89.29 ; Irritable bowel syndrome with diarrhea K58.0 ; Overactive bladder N32.81 ; Mixed hyperlipidemia E78.2 and Bronchitis J40 [facility] [address] [facility] [id number] [address] [place] [phone] Dec, [facility] [address] [facility] [id number] [address] [place] [address] Dec, [facility] [address] [place] [id number] [address] [place] [address] Dec, [facility] [address] [place] [id number] [address] [place] [id number] Dec, [facility] [address] [place] [id number] [address] [place] [address] Dec, Chronic pain G89.29 [facility] [address] [place] [address] Dec, [facility] [address] [place] [id number] [address] [place] [address] Dec, [place] [address] [address] Dec, Type 2 diabetes mellitus wit h foot ulcer E11.621 [facility] [address] [place] [id number] [address] [place] [address] Dec, Type 2 diabetes mellitus wit h foot ulcer E11.621 [place] [address] [address] 14 Dec, 2016 HTN (hypertension) I10 ; Dep ression F32.9 ; Type 2 diabetes mellitus with foot ulcer E11.621 ; Functional diarrhea K59.1 ; Irritable bowel syndrome with diarrhea K58.0 ; Chronic pain G89.29 ; Insomnia G47.00 ; Overactive bladder N32.81 ; Mixed hyperlipidemia E78.2 ; Gastroesophageal reflux disease with esophagitis K21.0 and Acquired hypothyroidism E03.9 [place] [place] [id number] [address] [place] [address] Nov, [place] [address] [address] Oct, [place] [address] [address] Oct, [place] [address] [address] Oct, [place] [address] [address] Sep, Functional diarrhea K59.1 ; HTN (hypertension) I10 ; Diabetes mellitus E11.9 ; Depression F32.9 ; Overactive bladder N32.81 ; Mixed hyperlipidemia E78.2 ; Gastroesophageal reflux disease without esophagitis K21.9 ; Chronic pain G89.29 ; Insomnia G47.00 and Acquired hypothyroidism E03.9 [place] [address] [address] Sep, [place] [address] [address] Aug, Encounter for immunization Z 23 [place] [address] [address] Aug, [place] [address] [address] Jul, [place] [address] [address] Jun, Type 2 diabetes mellitus wit hout complications E11.9 ; HTN (hypertension) I10 ; Hypothyroid E03.9 ; Neuropathy G62.9 ; Depression F32.9 ; Chronic pain G89.29 ; GERD (gastroesophageal reflux disease) K21.9 ; Insomnia G47.00 ; Overactive bladder N32.81 ; Mixed hyperlipidemia E78.2 ; Diarrhea of infectious origin A09 and Environmental allergies Z91.09 [place] [address] [address] Apr, [place] [address] [address] March, Hypothyroidism, unspecified E03.9 and Mixed hyperlipidemia E78.2 [place] [address] [address] March, Diabetes mellitus E11.9 ; HT N (hypertension) I10 ; Hypothyroid E03.9 ; Depression F32.9 ; Overactive bladder N32.81 ; Other chronic pain G89.29 ; Lumbago with sciatica, unspecified side M54.40 ; Environmental allergies Z91.09 and Gastroesophageal reflux disease, esophagitis presence not specified K21.9 [place] [address] [address] March, [place] [address] [address] 11 Jan, 2016 HTN (hypertension) I10 ; Hyp othyroid E03.9 ; Neuropathy G62.9 ; Diabetes mellitus E11.9 ; Chronic pain G89.29 ; GERD (gastroesophageal reflux disease) K21.9 ; Overactive bladder N32.81 and Depression F32.9 [place] [address] [address] 12 Dec, 2015 Ear pain, left H92.02 ; HTN (hypertension) I10 ; Hypothyroid E03.9 ; Neuropathy G62.9 ; Diabetes mellitus E11.9 ; Depression F32.9 ; GERD (gastroesophageal reflux disease) K21.9 ; Insomnia G47.00 and Overactive bladder N32.81 [place] [address] [address] Nov, Overactive bladder N32.81 an d Chronic pain G89.29 [place] [address] [address] Nov, Kidney failure N19 [place] [address] [address] Nov, [place] [address] [address] Nov, [place] [address] [address] Nov, Diabetes mellitus E11.9 ; De pression F32.9 ; Chronic pain G89.29 ; GERD (gastroesophageal reflux disease) K21.9 ; Insomnia G47.00 ; HTN (hypertension) I10 ; Hypothyroid E03.9 ; COPD (chronic obstructive pulmonary disease) J44.9 ; Bladder incontinence R32 and Incontinence R32 [place] [address] [address] Sep, Type 2 diabetes mellitus wit h foot ulcer E11.621 and Chromosomal abnormality, 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 [place] [address] [address] Sep, [place] [address] [address] Aug, [place] [address] [address] Aug, [place] [address] [address] Aug, HTN (hypertension) I10 ; Enc ounter for immunization Z23 ; Hypothyroid E03.9 ; Neuropathy G62.9 ; Diabetes mellitus E11.9 ; Depression F32.9 ; Chronic pain G89.29 ; GERD (gastroesophageal reflux disease) K21.9 ; Insomnia G47.00 and COPD (chronic obstructive pulmonary disease) J44.9 [place] [address] [address] Jun, [address] [address] Jun, [place] [address] [address] May, Essential hypertension, ivis gn 401.1 ; Unspecified hypothyroidism 244.9 ; Insomnia, unspecified 780.52 ; Shortness of breath 786.05 ; Depression 311 ; COPD (chronic obstructive pulmonary disease) 496 ; GERD (gastroesophageal reflux disease) 530.81 and Diabetes 1.5, 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 [address] [id number] [address] [place] [address] March, Shortness of breath 786.05 ; Nausea with vomiting 787.01 ; Essential hypertension, benign 401.1 ; Diabetes mellitus 250.00 ; Hyperlipidemia 272.4 and Hypothyroid 244.9 [facility] [address] [id number] [address] [place] [address] Feb, [facility] [address] [id number] [address] [place] [address] Feb, [facility] [address] [id number] [address] [place] [phone] Jan, [facility] [address] [id number] [address] [place] [phone] Jan, [facility] [address] [id number] [address] [place] [phone] Jan, [facility] [address] [id number] [address] [place] [phone] Jan, [facility] [address] [id number] [address] [place] [phone] Jan, [facility] [address] [id number] [address] [place] [phone] Jan, [facility] [address] [id number] [address] [place] [phone] Jan, [facility] [address] [id number] [address] [place] [id number] Jan, [facility] [address] [id number] [address] [place] [id number] Jan, [facility] [address] [id number] [address] [place] [phone] Jan, [facility] [address] [id number] [address] [place] [id number] Dec, 2014 [facility] [address] [id number] [address] [place] [address], [place] [phone] Dec, 2014 [facility] [address] [id number] [address] [place] [address], [place] [id number] Dec, 2014 [facility] [address] [id number] [address] [place] [address], [place] [id number] Dec, 2014 [facility] [address] [id number] [address] [place] [address], [place] [phone] Dec, 2014 [facility] [address] [id number] [address] [place] [address], [place] [id number] Dec, 2014 [facility] [address] [id number] [address] [place] [address], [place] [id number] Dec, 2014 [facility] [address] [id number] [address] [place] [address], [place] [address] Dec, 2014 [facility] [address] [id number] [address] [place] [address], [place] [address] Dec, 2014 [facility] [address] [id number] [address] [place] [address], [place] [address] Dec, 2014 [facility] [address] [id number] [address] [place] [address], [place] [address] Oct, [facility] [address] [id number] [address] [place] [address], [place] [address] Oct, [facility] [address] [id number] [address] [place] [address], [place] [address] Oct, [facility] [address] [id number] [address] [place] [address], [place] [address] Oct, [facility] [address] [id number] [address] [place] [address], [place] [address] Oct, [facility] [address] [id number] [address] [place] [address], [place] [address] Oct, [facility] [address] [id number] [address] [place] [address], [place] [address] 05 Oct, 2014 [facility] [address] [id number] [address] [place] [address], [place] [address] Oct, [facility] [address] [id number] [address] [place] [address], [place] [address] Oct, [facility] [address] [id number] [address] [place] [address], [place] [address] Oct, [facility] [address] [id number] [address] [place] [address], [place] [address] Oct, [facility] [address] [id number] [address] [place] [address], [place] [address] Oct, [facility] [address] [id number] [address] [place] [address], [place] [address] Oct, [facility] [address] [id number] [address] [place] [address], [place] [address] Oct, [facility] [address] [id number] [address] [place] [address], [place] [address] Sep, [facility] [address] [id number] [address] [place] [address], [place] [address] Sep, [facility] [address] [id number] [address] [place] [address], [place] [address] Sep, [facility] [address] [id number] [address] [place] [address], [place] [address] Sep, [facility] [address] [id number] [address] [place] [address], [place] [address] Sep, [facility] [address] [id number] [address] [place] [address], [place] [address] Sep, [facility] [address] [id number] [address] [place] [address], [place] [address] Sep, [facility] [address] [id number] [address] [place] [address] Sep, [facility] [address] [id number] [address] [place] [address], [place] [address] Sep, [facility] [address] [id number] [address] [place] [address], [place] [address] Aug, [facility] [address] [id number] [address] [place] [address], [place] [address] Aug, [facility] [address] [id number] [address] [place] [address], [place] [address] Aug, [facility] [address] [id number] [address] [place] [address], [place] [address] 17 Aug, 2014 [facility] [address] [id number] [address] [place] [address], [place] [address] 16 Aug, 2014 [facility] [address] [id number] [address] [place] [address], [place] [address] Aug, [facility] [address] [id number] [address] [place] [address], [place] [address] Aug, [facility] [address] [id number] [address] [place] [address], [place] [address] Aug, [facility] [address] [id number] [address] [place] [address] Aug, [facility] [address] [id number] [address] [place] [address], [place] [address] 29 Jul, 2013 [facility] [address] [id number] [address] [place] [address] 29 Jul, 2013 [facility] [address] [id number] [address] [place] [address], [place] [address] 25 Jul, 2013 [facility] [address] [id number] [address] [place] [address], [place] [address] 25 Jul, 2013 [facility] [address] [id number] [address] [place] [address], [place] [address] 25 Jul, 2013 [facility] [address] [id number] [facility] [place] [address] Jul, 2013 [facility] [address] [id number] [facility] [place] [address] Jul, [facility] [address] [id number] [facility] [place] [address] Jul, [facility] [address] [id number] [facility] [place] [address] Jul, [facility] [address] [id number] [facility] [place] [address] Jul, [facility] [address] [id number] [address] [place] [address], [place] [address] Jun, [facility] [address] [id number] [address] [place] [address], [place] [address] Jun, [facility] [address] [id number] [address] [place] [address], [place] [address] Jun, [facility] [address] [id number] [address] [place] [address], [place] [address] Jun, [facility] [address] [id number] [address] [place] [address], [place] [address] Jun, [facility] [address] [id number] [address] [place] [address], [place] [address] Jun, [facility] [address] [id number] [address] [place] [address], [place] [address] Jun, [facility] [address] [id number] [address] [place] [address], [place] [address] Jun, [facility] [address] [id number] [address] [place] [address], [place] [address] Jun, [facility] [address] [id number] [address] [place] [address], [place] [address] Jun, [facility] [address] [id number] [address] [place] [address], [place] [address] Jun, [facility] [address] [id number] [facility] [place] [address] Jun, [facility] [address] [id number] [address] [place] [address], [place] [address] May, [facility] [address] [id number] [address] [place] [address], [place] [address] May, [facility] [address] [id number] [address] [place] [address], [place] [address] May, [facility] [address] [id number] [address] [place] [address], [place] [address] May, [facility] [address] [id number] [address] [place] [address], [place] [address] May, [facility] [address] [id number] [address] [place] [address], [place] [address] May, [facility] [address] [id number] [address] [place] [address], [place] [address] March, [facility] [address] [id number] [address] [place] [address], [place] [address] March, [facility] [address] [id number] [address] [place] [address], [place] [address] March, [facility] [address] [id number] [address] [place] [address], [place] [address] March, [facility] [address] [id number] [address] [place] [address], [place] [address] March, [facility] [address] [id number] [address] [place] [address], [place] [address] March, [facility] [address] [id number] [address] [place] [address], [place] [address] Feb, [facility] [address] [id number] [address] [place] [address], [place] [address] Feb, [facility] [address] [id number] [facility] [place] [address] Feb, [facility] [address] [id number] [address] [place] [address], [place] [address] Feb, [facility] [address] [id number] [address] [place] [address], [place] [address] Jan, [facility] [address] [id number] [address] [place] [address], [place] [address] Jan, [facility] [address] [id number] [address] [place] [address], [place] [address] Jan, [facility] [address] [id number] [address] [place] [address], [place] [address] Jan, [facility] [address] [id number] [address] [place] [address], [place] [address] Jan, [facility] [address] [id number] [address] [place] [address], [place] [address] Jan, [facility] [address] [id number] [address] [place] [address], [place] [address] Jan, [facility] [address] [id number] [address] [place] [address], [place] [address] Jan, [facility] [address] [id number] [address] [place] [address], [place] [address] Jan, [facility] [address] [id number] [address] [place] [address], [place] [address] Jan, [facility] [address] [id number] [address] [place] [address], [place] [address] Jan, [facility] [address] [id number] [address] [place] [address], [place] [address] Jan, [facility] [address] [id number] [address] [place] [address], [place] [address] Dec, [facility] [address] [id number] [address] [place] [address], [place] [address] Dec, [facility] [address] [id number] [address] [place] [address], [place] [address] Dec, [facility] [address] [id number] [address] [place] [address], [place] [address] Dec, [facility] [address] [id number] [address] [place] [address], [place] [address] Dec, [facility] [address] [id number] [address] [place] [address], [place] [address] Dec, [facility] [address] [id number] [address] [place] [address], [place] [address] Nov, [facility] [address] [id number] [address] [place] [address], [place] [address] Nov, [facility] [address] [id number] [address] [place] [address], [place] [address] Oct, [facility] [address] [id number] [address] [place] [address], [place] [address] Oct, [facility] [address] [id number] [address] [place] [address], [place] [address] Oct, [facility] [address] [id number] [address] [place] [address], [place] [address] Oct, [facility] [address] [id number] [address] [place] [address], [place] [address] Oct, [facility] [address] [id number] [address] [place] [address], [place] [address] Oct, [facility] [address] [id number] [address] [place] [address], [place] [address] Sep, [facility] [address] [id number] [address] [place] [address], [place] [address] Sep, [facility] [address] [id number] [address] [place] [address], [place] [address] Sep, [facility] [address] [id number] [address] [place] [address], [place] [address] Sep, [facility] [address] [id number] [address] [place] [address], [place] [address] Aug, [facility] [address] [id number] [address] [place] [address], [place] [address] Aug, [facility] [address] [id number] [address] [place] [address], [place] [address] Aug, [facility] [address] [id number] [address] [place] [address], [place] [address] Jul, [facility] [address] [id number] [address] [place] [address], [place] [address] 14 Jul, 2013 [facility] [address] [id number] [address] [place] [address], [place] [address] Jul, [facility] [address] [id number] [address] [place] [address], [place] [address] Jun, [facility] [address] [id number] [address] [place] [address], [place] [address] Jun, [facility] [address] [id number] [address] [place] [address], [place] [address] Jun, [facility] [address] [id number] [address] [place] [address], [place] [address] Apr, [facility] [address] [id number] [address] [place] [address], [place] [address] Apr, [facility] [address] [id number] [address] [place] [address], [place] [address] March, [facility] [address] [id number] [address] [place] [address], [place] [address] March, [facility] [address] [id number] [address] [place] [address], [place] [address] March, [facility] [address] [id number] [address] [place] [address], [place] [address] March, [facility] [address] [id number] [address] [place] [address], [place] [address] Feb, [facility] [address] [id number] [address] [place] [address], [place] [address] Jan, [facility] [address] [id number] [address] [place] [address], [place] [address] 13 Dec, 2012 [facility] [address] [id number] [address] [place] [address], [place] [address] 08 Dec, 2012 [facility] [address] [id number] [address] [place] [address], [place] [address] Dec, [facility] [address] [id number] [address] [place] [address], [place] [address] Nov, [facility] [address] [id number] [address] [place] [address], [place] [address] Oct, [facility] [address] [id number] [address] [place] [address], [place] [address] Oct, [facility] [address] [id number] [address] [place] [address], [place] [address] Sep, [facility] [address] [id number] [address] [place] [address], [place] [address] Sep, [facility] [address] [id number] [address] [place] [address], [place] [address] Sep, [facility] [address] [id number] [address] [place] [address], [place] [address] Sep, [facility] [address] [id number] [address] [place] [address], [place] [address] Sep, [facility] [address] [id number] [address] [place] [address], [place] [address] Sep, [facility] [address] [id number] [address] [place] [address], [place] [address] Sep, [facility] [address] [id number] [address] [place] [address], [place] [address] 16 Aug, 2012 [facility] [address] [id number] [address] [place] [address], [place] [address] 16 Aug, 2012 [facility] [address] [id number] [address] [place] [address], [place] [address] Aug, [facility] [address] [id number] [address] [place] [address], [place] [address] Aug, [facility] [address] [id number] [address] [place] [address], [place] [address] Aug, [facility] [address] [id number] [address] [place] [address], [place] [address] Aug, [facility] [address] [id number] [address] [place] [address], [place] [address] Aug, [facility] [address] [id number] [address] [place] [address], [place] [address] Aug, [facility] [address] [id number] [address] [place] [address], [place] [address] Jul, [facility] [address] [id number] [address] [place] [address], [place] [address] Jul, [facility] [address] [id number] [address] [place] [address], [place] [address] Jun, [facility] [address] [id number] [address] [place] [address], [place] [address] May, [facility] [address] [id number] [address] [place] [address], [place] [address] Apr, [facility] [address] [id number] [address] [place] [address], [place] [address] Apr, [facility] [address] [id number] [address] [place] [address], [place] [address] Apr, [facility] [address] [id number] [address] [place] [address], [place] [address] March, [facility] [address] [id number] [address] [place] [address], [place] [address] March, [facility] [address] [id number] [address] [place] [address], [place] [address] March, [facility] [address] [id number] [address] [place] [address], [place] [address] March, [facility] [address] [id number] [address] [place] [address], [place] [address] March, [facility] [address] [id number] [address] [place] [address], [place] [address] March, [facility] [address] [id number] [address] [place] [address], [place] [address] March, [facility] [address] [id number] [address] [place] [address], [place] [address] Jan, [facility] [address] [id number] [address] [place] [address], [place] [address] Jan, [facility] [address] [id number] [address] [place] [address], [place] [address] Jan, [facility] [address] [id number] [address] [place] [address], [place] [address] Jan, [facility] [address] [id number] [address] [place] [address], [place] [address] Jan, [facility] [address] [id number] [address] [place] [address], [place] [address] Dec, [facility] [address] [id number] [address] [place] [address], [place] [address] Dec, [facility] [address] [id number] [address] [place] [address], [place] [address] Nov, [facility] [address] [id number] [address] [place] [address], [place] [address] Nov, [facility] [address] [id number] [address] [place] [address], [place] [address] Nov, [facility] [address] [id number] [address] [place] [address], [place] [address] Nov, [facility] [address] [id number] [address] [place] [address], [place] [address] Oct, [facility] [address] [id number] [address] [place] [address], [place] [address] Oct, [facility] [address] [id number] [address] [place] [address], [place] [address] 14 Sep, 2011 [facility] [address] [id number] [address] [place] [address], [place] [address] Sep, [facility] [address] [id number] [address] [place] [address], [place] [address] Sep, [facility] [address] [id number] [address] [place] [address], [place] [address] May, [facility] [address] [id number] [address] [place] [address], [place] [address] Nov, [facility] [address] [id number] [address] [place] [address], [place] [address] Oct, [facility] [address] [id number] [address] [place] [address], [place] [address] Oct, [facility] [address] [id number] [address] [place] [address], [place] [address] Oct, [facility] [address] [id number] [address] [place] [address], [place] [address] Sep, [facility] [address] [id number] [address] [place] [address], [place] [address] Sep, [facility] [address] [id number] [address] [place] [address], [place] [address] Aug, [facility] [address] [id number] [address] [place] [address], [place] [address] March, [facility] [address] [id number] [address] [place] [id number] Oct, [facility] [address] [id number] [address] [place] [id number] Oct, [facility] [address] [id number] [address] [place] [id number] Oct, [facility] [address] [id number] [address] [place] [id number] Oct, [facility] [address] [id number] [address] [place] [id number] Sep, [facility] [address] [id number] [address] [place] [id number] Sep, [facility] [address] [id number] [address] [place] [id number] Sep, [facility] [address] [id number] [address] [place] [id number] Aug, [facility] [address] [id number] [address] [place] [id number] Aug, [facility] [address] [id number] [address] [place] [id number] Aug, [facility] [address] [id number] [address] [place] [id number] Jan, IMMUNIZATIONS No Known Immunizations SOCIAL HISTORY [...]
--- OUTSIDE RECORDS SUMMARY | 2020-06-13 16:50 | XMS REPORT | Continuity of Care Document ---
Demographics Preferred Language Unknown Marital Status Unknown Evangelical Affiliation Unknown Race Unknown Ethnic Group Unknown Author Organization Unknown Address Unknown Phone Unavailable Allergies Active Description Code Type Severity Reaction Onset Reported/Identified Relationship to Patient Clinical Status Yes gemfibrozil Drug Allergy N/A N/A 04/13/2010 Yes gemfibrozil Drug Allergy 04/13/2010 Yes Actos Drug Allergy N/A N/A 08/09/2010 Yes Actos Drug Allergy 08/09/2010 Yes metformin Drug Allergy N/A N/A 08/31/2010 Yes metformin Drug Allergy 08/31/2010 Yes Trilipix Drug Allergy N/A N/A 05/22/2011 Yes Trilipix Drug Allergy 05/22/2011 Yes metformin 500 mg tablet,ER silvestre.retentio n 24 hr Drug Allergy N/A N/A 03/2012 Yes niacin 500 mg Capsule, Extended Release Drug Allergy N/A N/A 08/16/2012 Yes metformin 500 mg tablet,ER silvestre.retentio n 24 hr Drug Allergy 08/16 Yes niacin 500 mg Capsule, Extended Release Drug Allergy 08/16/2012 Yes gabapentin 600 mg tablet Drug Allergy N/A N/A 09/16/2012 Yes gabapentin 600 mg tablet Drug Allergy 09/16/2012 Yes choline fenofibrate [id number] Drug Allergy Unknown N/A 12/07/2017 Yes gemfibrozil [id number] Drug Aller gy Unknown N/A 12/07/2017 Yes niacin [id number] Drug Allergy Unknown N/A 12/07/2017 Yes No Known Drug Allergies [id number] Drug Allergy Unknown N/A 12/07/2017 Yes pioglitazone [id number] Drug Allergy Unknown N/A 12/07/2017 Medications There is no data. Problems Date Dx Coded Attending Type Code Diagnosis Diagnosed By 06/06/2008 LAURA BOBBY DO 250.02 DIABETES MELLITUS POORLY CONTROLLED 06/06/2008 250.02 MONIKA BETES MELLITUS POORLY CONTROLLED 06/06/2008 LAURA BOBBY DO 250.02 DIABETES MELLITUS POORLY CONTROLLED 06/06/2008 LAURA BOBBY DO 250.02 DIABETES MELLITUS POORLY CONTROLLED 06/06/2008 250.02 MONIKA BETES MELLITUS POORLY CONTROLLED 06/06/2008 250.02 MONIKA BETES MELLITUS POORLY CONTROLLED 06/06/2008 250.02 MONIKA BETES MELLITUS POORLY CONTROLLED 06/06/2008 250.02 MONIKA BETES MELLITUS POORLY CONTROLLED 06/06/2008 250.02 MONIKA BETES MELLITUS POORLY CONTROLLED 06/06/2008 250.02 MONIKA BETES MELLITUS POORLY CONTROLLED 06/06/2008 BOBBY DO, LAURA K 250.02 DIABETES MELLITUS POORLY CONTROLLED 06/06/2008 BOBBY DO, LAURA K 250.02 DIABETES MELLITUS POORLY CONTROLLED 06/06/2008 BOBBY DO, LAURA K 250.02 DIABETES MELLITUS POORLY CONTROLLED 06/06/2008 STEVEN CLINE APRN 250.02 DIABETES MELLITUS POORLY CONTROLLED 06/06/2008 BOBBY DO, LAURA K 250.02 DIABETES MELLITUS POORLY CONTROLLED 06/06/2008 BOBBY DO, LAURA K 250.02 DIABETES MELLITUS POORLY CONTROLLED 06/06/2008 BOBBY DO, LAURA K 250.02 DIABETES MELLITUS POORLY CONTROLLED 06/06/2008 BOBBY DO, LAURA K 250.02 DIABETES MELLITUS POORLY CONTROLLED 06/06/2008 BOBBY DO, LAURA K 250.02 DIABETES MELLITUS POORLY CONTROLLED 06/06/2008 BOBBY DO, LAURA K 250.02 DIABETES MELLITUS POORLY CONTROLLED 06/06/2008 BOBBY DO, LAURA K 250.02 DIABETES MELLITUS POORLY CONTROLLED 06/06/2008 FLROA SINGH PA-C 250.02 DIABETES MELLITUS POORLY CONTROLLED 06/06/2008 BOBBY DO, LAURA K 250.02 DIABETES MELLITUS POORLY CONTROLLED 06/06/2008 BOBBY DO, LAURA K 250.02 DIABETES MELLITUS POORLY CONTROLLED 06/24/2008 BOBBY DO LAURA K 528.9 MOUTH PAIN 06/24/2008 528.9 MOUT H PAIN 06/24/2008 BOBBY DO, LAURA K 528.9 MOUTH PAIN 06/24/2008 BOBBY DO, LAURA K 528.9 MOUTH PAIN 06/24/2008 528.9 MOUT H PAIN 06/24/2008 528.9 MOUT H PAIN 06/24/2008 528.9 MOUT H PAIN 06/24/2008 528.9 MOUT H PAIN 06/24/2008 528.9 MOUT H PAIN 06/24/2008 528.9 MOUT H PAIN 06/24/2008 BOBBY DO LAURA K 528.9 MOUTH PAIN 06/24/2008 BOBBY DO, LAURA K 528.9 MOUTH PAIN 06/24/2008 BOBBY DO, LAURA K 528.9 MOUTH PAIN 06/24/2008 STEVEN CLINE APRN 528.9 MOUTH PAIN 06/24/2008 BOBBY DO, LAURA K 528.9 MOUTH PAIN 06/24/2008 BOBBY DO, LAURA K 528.9 MOUTH PAIN 06/24/2008 BOBBY DO, LAURA K 528.9 MOUTH PAIN 06/24/2008 BOBBY DO, LAURA K 528.9 MOUTH PAIN 06/24/2008 BOBBY DO, LAURA K 528.9 MOUTH PAIN 06/24/2008 BOBBY DO, LAURA K 528.9 MOUTH PAIN 06/24/2008 BOBBY DO, LAURA K 528.9 MOUTH PAIN 06/24/2008 FLORA SINGH PA-C 528.9 MOUTH PAIN 06/24/2008 BOBBY DO, LAURA K 528.9 MOUTH PAIN 06/24/2008 BOBBY DO, LAURA K 528.9 MOUTH PAIN 07/08/2008 BOBBY DO, LAURA K 455.6 HEMORRHOIDS NOS 07/08/2008 BOBBY DO, LAURA K 569.3 RECTAL HEMORRHAGE 07/08/2008 455.6 HEMO RRHOIDS NOS 07/08/2008 569.3 RECT AL HEMORRHAGE 07/08/2008 DIAMANTE LOPEZ, LAURA K 455.6 HEMORRHOIDS NOS 07/08/2008 BOBBY DO, LAURA K 569.3 RECTAL HEMORRHAGE 07/08/2008 BOBBY DO, LAURA K 455.6 HEMORRHOIDS NOS 07/08/2008 BOBBY DO LAURA K 569.3 RECTAL HEMORRHAGE 07/08/2008 455.6 HEMO RRHOIDS NOS 07/08/2008 569.3 RECT AL HEMORRHAGE 07/08/2008 455.6 HEMO RRHOIDS NOS 07/08/2008 569.3 RECT AL HEMORRHAGE 07/08/2008 455.6 HEMO RRHOIDS NOS 07/08/2008 569.3 RECT AL HEMORRHAGE 07/08/2008 455.6 HEMO RRHOIDS NOS 07/08/2008 569.3 RECT AL HEMORRHAGE 07/08/2008 455.6 HEMO RRHOIDS NOS 07/08/2008 569.3 RECT AL HEMORRHAGE 07/08/2008 455.6 HEMO RRHOIDS NOS 07/08/2008 569.3 RECT AL HEMORRHAGE 07/08/2008 BOBBY DO, LAURA K 455.6 HEMORRHOIDS NOS 07/08/2008 BOBBY DO, LAURA K 569.3 RECTAL HEMORRHAGE 07/08/2008 BOBBY DO, LAURA K 455.6 HEMORRHOIDS NOS 07/08/2008 BOBBY DO, LAURA K 569.3 RECTAL HEMORRHAGE 07/08/2008 BOBBY DO, LAURA K 455.6 HEMORRHOIDS NOS 07/08/2008 BOBBY DO, LAURA K 569.3 RECTAL HEMORRHAGE 07/08/2008 [facility], STEVEN R 455.6 HEMORRHOIDS NOS 07/08/2008 [facility]OUNT MANAGER, STEVEN R 569.3 RECTAL HEMORRHAGE 07/08/2008 BOBBY DO, LAURA K 455.6 HEMORRHOIDS NOS 07/08/2008 BOBBY DO, LAURA K 569.3 RECTAL HEMORRHAGE 07/08/2008 BOBBY DO, LAURA K 455.6 HEMORRHOIDS NOS 07/08/2008 BOBBY DO, LAURA K 569.3 RECTAL HEMORRHAGE 07/08/2008 BOBBY DO, LAURA K 455.6 HEMORRHOIDS NOS 07/08/2008 BOBBY DO, LAURA K 569.3 RECTAL HEMORRHAGE 07/08/2008 BOBBY DO, LAURA K 455.6 HEMORRHOIDS NOS 07/08/2008 BOBBY DO, LAURA K 569.3 RECTAL HEMORRHAGE 07/08/2008 BOBBY DO, LAURA K 455.6 HEMORRHOIDS NOS 07/08/2008 BOBBY DO, LAURA K 569.3 RECTAL HEMORRHAGE 07/08/2008 BOBBY DO, LAURA K 455.6 HEMORRHOIDS NOS 07/08/2008 BOBBY DO, LAURA K 569.3 RECTAL HEMORRHAGE 07/08/2008 BOBBY DO, LAURA K 455.6 HEMORRHOIDS NOS 07/08/2008 BOBBY DO, LAURA K 569.3 RECTAL HEMORRHAGE 07/08/2008 FLORA SINGH PA-C 455.6 HEMORRHOIDS NOS 07/08/2008 FLORA SINGH PA-C 569.3 RECTAL HEMORRHAGE 07/08/2008 BOBBY DO, LAURA K 455.6 HEMORRHOIDS NOS 07/08/2008 BOBBY DO, LAURA K 569.3 RECTAL HEMORRHAGE 07/08/2008 BOBBY DO, LAURA K 455.6 HEMORRHOIDS NOS 07/08/2008 BOBBY DO, LAURA K 569.3 RECTAL HEMORRHAGE 10/13/2008 BOBBY DO, LAURA K 787.91 diarrhea 10/13/2008 787.91 monika rrhea 10/13/2008 BOBBY DO, LAURA K 787.91 diarrhea 10/13/2008 BOBBY DO, LAURA K 787.91 diarrhea 10/13/2008 787.91 monika rrhea 10/13/2008 787.91 monika rrhea 10/13/2008 787.91 monika rrhea 10/13/2008 787.91 monika rrhea 10/13/2008 787.91 monika rrhea 10/13/2008 787.91 monika rrhea 10/13/2008 BOBBY DO, LAURA K 787.91 diarrhea 10/13/2008 BOBBY DO, LAURA K 787.91 diarrhea 10/13/2008 BOBBY DO, LAURA K 787.91 diarrhea 10/13/2008 SETVEN CLINE APRN 787.91 diarrhea 10/13/2008 BOBBY DO, LAURA K 787.91 diarrhea 10/13/2008 BOBBY DO, LAURA K 787.91 diarrhea 10/13/2008 BOBBY DO, LAURA K 787.91 diarrhea 10/13/2008 BOBBY DO, LAURA K 787.91 diarrhea 10/13/2008 BOBBY DO, LAURA K 787.91 diarrhea 10/13/2008 BOBBY DO, LAURA K 787.91 diarrhea 10/13/2008 BOBBY DO, LAURA K 787.91 diarrhea 10/13/2008 FLORA SINGH PA-C 787.91 diarrhea 10/13/2008 BOBBY DO, LAURA K 787.91 diarrhea 10/13/2008 BOBBY DO, LAURA K 787.91 diarrhea 06/17/2009 BOBBY DO, LAURA K 536.8 GASTROPATHY HYPERSECRETORY 06/17/2009 536.8 SILVESTRE ROPATHY HYPERSECRETORY 06/17/2009 BOBBY DO, LAURA K 536.8 GASTROPATHY HYPERSECRETORY 06/17/2009 BOBBY DO, LAURA K 536.8 GASTROPATHY HYPERSECRETORY 06/17/2009 536.8 SILVESTRE ROPATHY HYPERSECRETORY 06/17/2009 536.8 SILVESTRE ROPATHY HYPERSECRETORY 06/17/2009 536.8 SILVESTRE ROPATHY HYPERSECRETORY 06/17/2009 536.8 SILVESTRE ROPATHY HYPERSECRETORY 06/17/2009 536.8 SILVESTRE ROPATHY HYPERSECRETORY 06/17/2009 536.8 SILVESTRE ROPATHY HYPERSECRETORY 06/17/2009 BOBBY DO, LAURA K 536.8 GASTROPATHY HYPERSECRETORY 06/17/2009 BOBBY DO, LAURA K 536.8 GASTROPATHY HYPERSECRETORY 06/17/2009 BBOBY DO, LAURA K 536.8 GASTROPATHY HYPERSECRETORY 06/17/2009 STEVEN CLINE APRN R 536.8 GASTROPATHY HYPERSECRETORY 06/17/2009 BOBBY DO, LAURA K 536.8 GASTROPATHY HYPERSECRETORY 06/17/2009 BOBBY DO, LAURA K 536.8 GASTROPATHY HYPERSECRETORY 06/17/2009 BOBBY DO, LAURA K 536.8 GASTROPATHY HYPERSECRETORY 06/17/2009 BOBBY DO, LAURA K 536.8 GASTROPATHY HYPERSECRETORY 06/17/2009 BOBBY DO, LAURA K 536.8 GASTROPATHY HYPERSECRETORY 06/17/2009 BOBBY DO, LAURA K 536.8 GASTROPATHY HYPERSECRETORY 06/17/2009 BOBBY DO, LAURA K 536.8 GASTROPATHY HYPERSECRETORY 06/17/2009 FLORA SINGH PA-C 536.8 GASTROPATHY HYPERSECRETORY 06/17/2009 BOBBY DO, LAURA K 536.8 GASTROPATHY HYPERSECRETORY 06/17/2009 BOBBY DO, LAURA K 536.8 GASTROPATHY HYPERSECRETORY 09/23/2009 BOBBY DO, LAURA K 786.2 cough 09/23/2009 786.2 cough 09/23/2009 BOBBY DO, LAURA K 786.2 cough 09/23/2009 BOBBY DO, LAURA K 786.2 cough 09/23/2009 786.2 cough 09/23/2009 786.2 cough 09/23/2009 786.2 COUGH 09/23/2009 786.2 COUGH 09/23/2009 786.2 COUGH 09/23/2009 786.2 COUGH 09/23/2009 BOBBY DO, LAURA K 786.2 COUGH 09/23/2009 BOBBY DO, LAURA K 786.2 COUGH 09/23/2009 BOBBY DO, LAURA K 786.2 COUGH 09/23/2009 [facility] ACCOUNT [facility], STEVEN R 786.2 COUGH 09/23/2009 BOBBY DO, LAURA K 786.2 COUGH 09/23/2009 BOBBY DO, LAURA K 786.2 COUGH 09/23/2009 BOBBY DO, LAURA K 786.2 COUGH 09/23/2009 BOBBY DO, LAURA K 786.2 COUGH 09/23/2009 BOBBY DO, LAURA K 786.2 COUGH 09/23/2009 BOBBY DO, LAURA K 786.2 COUGH 09/23/2009 BOBBY DO, LAURA K 786.2 COUGH 09/23/2009 FLORA SINGH PA-C 786.2 COUGH 09/23/2009 BOBBY DO, LAURA K 786.2 COUGH 09/23/2009 BOBBY DO, LAURA K 786.2 COUGH 10/28/2009 BOBBY DO, LAURA K 564.1 IRRITABLE BOWEL SYNDROME 10/28/2009 564.1 IRRI TABLE BOWEL SYNDROME 10/28/2009 BOBBY DO, LAURA K 564.1 IRRITABLE BOWEL SYNDROME 10/28/2009 BOBBY DO, LAURA K 564.1 IRRITABLE BOWEL SYNDROME 10/28/2009 564.1 IRRI TABLE BOWEL SYNDROME 10/28/2009 564.1 IRRI TABLE BOWEL SYNDROME 10/28/2009 564.1 IRRI TABLE BOWEL SYNDROME 10/28/2009 564.1 IRRI TABLE BOWEL SYNDROME 10/28/2009 564.1 IRRI TABLE BOWEL SYNDROME 10/28/2009 564.1 IRRI TABLE BOWEL SYNDROME 10/28/2009 BOBBY DO, LAURA K 564.1 IRRITABLE BOWEL SYNDROME 10/28/2009 BOBBY DO, LAURA K 564.1 IRRITABLE BOWEL SYNDROME 10/28/2009 BOBBY DO, LAURA K 564.1 IRRITABLE BOWEL SYNDROME 10/28/2009 MARLYN HAWTHORNE STEVEN R 564.1 IRRITABLE BOWEL SYNDROME 10/28/2009 BOBBY DO, LAURA K 564.1 IRRITABLE BOWEL SYNDROME 10/28/2009 BOBBY DO, LAURA K 564.1 IRRITABLE BOWEL SYNDROME 10/28/2009 BOBBY DO, LAURA K 564.1 IRRITABLE BOWEL SYNDROME 10/28/2009 BOBBY DO, LAURA K 564.1 IRRITABLE BOWEL SYNDROME 10/28/2009 BOBBY DO, LAURA K 564.1 IRRITABLE BOWEL SYNDROME 10/28/2009 BOBBY DO, LAURA K 564.1 IRRITABLE BOWEL SYNDROME 10/28/2009 BOBBY DO, LAURA K 564.1 IRRITABLE BOWEL SYNDROME 10/28/2009 SAMANTHA HARGROVE, FLORA Kay 564.1 IRRITABLE BOWEL SYNDROME 10/28/2009 BOBBY DO, LAURA K 564.1 IRRITABLE BOWEL SYNDROME 10/28/2009 BOBBY DO, LAURA K 564.1 IRRITABLE BOWEL SYNDROME 01/06/2010 BOBBY DO, LAURA K 719.46 PAIN IN JOINT, LOWER LEG 01/06/2010 719.46 RADHA N IN JOINT, LOWER LEG 01/06/2010 BOBBY DO, LAURA K 719.46 PAIN IN JOINT, LOWER LEG 01/06/2010 BOBBY DO, LAURA K 719.46 PAIN IN JOINT, LOWER LEG 01/06/2010 719.46 RADHA N IN JOINT, LOWER LEG 01/06/2010 719.46 RADHA N IN JOINT, LOWER LEG 01/06/2010 719.46 RADHA N IN JOINT, LOWER LEG 01/06/2010 719.46 RADHA N IN JOINT, LOWER LEG 01/06/2010 719.46 RADHA N IN JOINT, LOWER LEG 01/06/2010 719.46 RADHA N IN JOINT, LOWER LEG 01/06/2010 BOBBY DO, LAUAR K 719.46 PAIN IN JOINT, LOWER LEG 01/06/2010 BOBBY DO, LAURA K 719.46 PAIN IN JOINT, LOWER LEG 01/06/2010 BOBBY DO, LAURA K 719.46 PAIN IN JOINT, LOWER LEG 01/06/2010 STEVEN CLINE APRN 719.46 PAIN IN JOINT, LOWER LEG 01/06/2010 BOBBY DO, LAURA K 719.46 PAIN IN JOINT, LOWER LEG 01/06/2010 BOBBY DO, LAURA K 719.46 PAIN IN JOINT, LOWER LEG 01/06/2010 BOBBY DO, LAURA K 719.46 PAIN IN JOINT, LOWER LEG 01/06/2010 BOBBY DO, LAURA K 719.46 PAIN IN JOINT, LOWER LEG 01/06/2010 BOBBY DO, LAURA K 719.46 PAIN IN JOINT, LOWER LEG 01/06/2010 BOBBY DO, LAURA K 719.46 PAIN IN JOINT, LOWER LEG 01/06/2010 BOBBY DO, LAURA K 719.46 PAIN IN JOINT, LOWER LEG 01/06/2010 FLORA SINGH PA-C 719.46 PAIN IN JOINT, LOWER LEG 01/06/2010 BOBBY DO, LAURA K 719.46 PAIN IN JOINT, LOWER LEG 01/06/2010 BOBBY DO, LAURA K 719.46 PAIN IN JOINT, LOWER LEG 03/16/2010 BOBBY DO, LAURA K 250.6 NEUROPATHY DIABETIC 03/16/2010 BOBBY DO, LAURA K 787.6 unable to restrain bowel movement 03/16/2010 250.6 NEUR OPATHY DIABETIC 03/16/2010 787.6 unab le to restrain bowel movement 03/16/2010 BOBBY DO, LAURA K 250.6 NEUROPATHY DIABETIC 03/16/2010 BOBBY DO, LAURA K 787.6 unable to restrain bowel movement 03/16/2010 BOBBY DO, LAURA K 250.6 NEUROPATHY DIABETIC 03/16/2010 BOBBY DO, LAURA K 787.6 unable to restrain bowel movement 03/16/2010 250.6 NEUR OPATHY DIABETIC 03/16/2010 787.6 unab le to restrain bowel movement 03/16/2010 250.6 NEUR OPATHY DIABETIC 03/16/2010 787.6 unab le to restrain bowel movement 03/16/2010 250.6 NEUR OPATHY DIABETIC 03/16/2010 787.6 unab le to restrain bowel movement 03/16/2010 250.6 NEUR OPATHY DIABETIC 03/16/2010 787.6 unab le to restrain bowel movement 03/16/2010 250.6 NEUR OPATHY DIABETIC 03/16/2010 787.6 unab le to restrain bowel movement 03/16/2010 250.6 NEUR OPATHY DIABETIC 03/16/2010 787.6 unab le to restrain bowel movement 03/16/2010 BOBBY DO, LAURA K 250.6 NEUROPATHY DIABETIC 03/16/2010 BOBBY DO, LAURA K 787.6 unable to restrain bowel movement 03/16/2010 BOBBY DO, LAURA K 250.6 NEUROPATHY DIABETIC 03/16/2010 BOBBY DO, LAURA K 787.6 unable to restrain bowel movement 03/16/2010 BOBBY DO, LAURA K 250.6 NEUROPATHY DIABETIC 03/16/2010 BOBBY DO, LAURA K 787.6 unable to restrain bowel movement 03/16/2010 STEVEN CLINE APRN 250.6 NEUROPATHY DIABETIC 03/16/2010 MARLYN HAWTHORNE STEVEN R 787.6 unable to restrain bowel movement 03/16/2010 BOBBY DO, LAURA K 250.6 NEUROPATHY DIABETIC 03/16/2010 BOBBY DO, LAURA K 787.6 unable to restrain bowel movement 03/16/2010 BOBBY DO, LAURA K 250.6 NEUROPATHY DIABETIC 03/16/2010 BOBBY DO, LAURA K 787.6 unable to restrain bowel movement 03/16/2010 BOBBY DO, LAURA K 250.6 NEUROPATHY DIABETIC 03/16/2010 BOBBY DO, LAURA K 787.6 unable to restrain bowel movement 03/16/2010 BOBBY DO, LAURA K 250.6 NEUROPATHY DIABETIC 03/16/2010 BOBBY DO, LAURA K 787.6 unable to restrain bowel movement 03/16/2010 BOBBY DO, LAURA K 250.6 NEUROPATHY DIABETIC 03/16/2010 BOBBY DO, LAURA K 787.6 unable to restrain bowel movement 03/16/2010 BOBBY DO, LAURA K 250.6 NEUROPATHY DIABETIC 03/16/2010 BOBBY DO, LAURA K 787.6 unable to restrain bowel movement 03/16/2010 BOBBY DO, LAURA K 250.6 NEUROPATHY DIABETIC 03/16/2010 BOBBY DO, LAURA K 787.6 unable to restrain bowel movement 03/16/2010 FLORA SINGH PA-C 250.6 NEUROPATHY DIABETIC 03/16/2010 FLORA SINGH PA-C 787.6 unable to restrain bowel movement 03/16/2010 BOBBY DO, LAURA K 250.6 NEUROPATHY DIABETIC 03/16/2010 BOBBY DO, LAURA K 787.6 unable to restrain bowel movement 03/16/2010 BOBBY DO, LAURA K 250.6 NEUROPATHY DIABETIC 03/16/2010 BOBBY DO, LAURA K 787.6 unable to restrain bowel movement 08/09/2010 BOBBY DO, LAURA K 278.00 OBESITY, UNSPECIFIED 08/09/2010 278.00 OBE SITY, UNSPECIFIED 08/09/2010 BOBBY DO, LAURA K 278.00 OBESITY, UNSPECIFIED 08/09/2010 BOBBY DO, LAURA K 278.00 OBESITY, UNSPECIFIED 08/09/2010 278.00 OBE SITY, UNSPECIFIED 08/09/2010 278.00 OBE SITY, UNSPECIFIED 08/09/2010 278.00 OBE SITY, UNSPECIFIED 08/09/2010 278.00 OBE SITY, UNSPECIFIED 08/09/2010 278.00 OBE SITY, UNSPECIFIED 08/09/2010 278.00 OBE SITY, UNSPECIFIED 08/09/2010 BOBBY DO, LAURA K 278.00 OBESITY, UNSPECIFIED 08/09/2010 BOBBY DO, LAURA K 278.00 OBESITY, UNSPECIFIED 08/09/2010 BOBBY DO, LAURA K 278.00 OBESITY, UNSPECIFIED 08/09/2010 STEVEN CLINE APRN R 278.00 OBESITY, UNSPECIFIED 08/09/2010 BOBBY DO, LAURA K 278.00 OBESITY, UNSPECIFIED 08/09/2010 BOBBY DO, LAURA K 278.00 OBESITY, UNSPECIFIED 08/09/2010 BOBBY DO, LAURA K 278.00 OBESITY, UNSPECIFIED 08/09/2010 BOBBY DO, LAURA K 278.00 OBESITY, UNSPECIFIED 08/09/2010 BOBBY DO, LAURA K 278.00 OBESITY, UNSPECIFIED 08/09/2010 BOBBY DO, LAURA K 278.00 OBESITY, UNSPECIFIED 08/09/2010 BOBBY DO, LAURA K 278.00 OBESITY, UNSPECIFIED 08/09/2010 FLORA SINGH PA-C 278.00 OBESITY, UNSPECIFIED 08/09/2010 BOBBY DO, LAURA K 278.00 OBESITY, UNSPECIFIED 08/09/2010 BOBBY DO, LAURA K 278.00 OBESITY, UNSPECIFIED 12/01/2010 BOBBY DO, LAUAR K 465.9 UPPER RESPIRATORY INFECTION 12/01/2010 465.9 UPPE R RESPIRATORY INFECTION 12/01/2010 BOBBY DO, LAURA K 465.9 UPPER RESPIRATORY INFECTION 12/01/2010 BOBBY DO, LAURA K 465.9 UPPER RESPIRATORY INFECTION 12/01/2010 465.9 UPPE R RESPIRATORY INFECTION 12/01/2010 465.9 UPPE R RESPIRATORY INFECTION 12/01/2010 465.9 UPPE R RESPIRATORY INFECTION 12/01/2010 465.9 UPPE R RESPIRATORY INFECTION 12/01/2010 465.9 UPPE R RESPIRATORY INFECTION 12/01/2010 465.9 UPPE R RESPIRATORY INFECTION 12/01/2010 BOBBY DO, LAURA K 465.9 UPPER RESPIRATORY INFECTION 12/01/2010 BOBBY DO, LAURA K 465.9 UPPER RESPIRATORY INFECTION 12/01/2010 BOBBY DO, LAURA K 465.9 UPPER RESPIRATORY INFECTION 12/01/2010 STEVEN CLINE APRN R 465.9 UPPER RESPIRATORY INFECTION 12/01/2010 BOBBY DO, LAURA K 465.9 UPPER RESPIRATORY INFECTION 12/01/2010 BOBBY DO, LAURA K 465.9 UPPER RESPIRATORY INFECTION 12/01/2010 BOBBY DO, LAURA K 465.9 UPPER RESPIRATORY INFECTION 12/01/2010 BOBBY DO, LAURA K 465.9 UPPER RESPIRATORY INFECTION 12/01/2010 BOBBY DO, LAURA K 465.9 UPPER RESPIRATORY INFECTION 12/01/2010 BOBBY DO, LAURA K 465.9 UPPER RESPIRATORY INFECTION 12/01/2010 BOBBY DO, LAURA K 465.9 UPPER RESPIRATORY INFECTION 12/01/2010 FLORA SINGH PA-C 465.9 UPPER RESPIRATORY INFECTION 12/01/2010 BOBBY DO, LAURA K 465.9 UPPER RESPIRATORY INFECTION 12/01/2010 BOBBY DO, LAURA K 465.9 UPPER RESPIRATORY INFECTION 02/15/2011 BOBBY DO LAURA K 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 02/15/2011 LAURA BOBBY DO K 381.81 EUSTACHIAN TUBE DYSFUNCTION 02/15/2011 250.72 MONIKA BETES WITH PERIPHERAL CIRCULATORY DISORDERS TYPE II OR UNSPECIFIED TYPE UNCONTROLLED 02/15/2011 381.81 EUS TACHIAN TUBE DYSFUNCTION 02/15/2011 LAURA BOBBY DO K 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 02/15/2011 LAURA BOBBY DO K 381.81 EUSTACHIAN TUBE DYSFUNCTION 02/15/2011 CHANO BOBBY DOA K 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 02/15/2011 LAURA BOBBY DO K 381.81 EUSTACHIAN TUBE DYSFUNCTION 02/15/2011 250.72 MONIKA BETES WITH PERIPHERAL CIRCULATORY DISORDERS TYPE II OR UNSPECIFIED TYPE UNCONTROLLED 02/15/2011 381.81 EUS TACHIAN TUBE DYSFUNCTION 02/15/2011 250.72 MONIKA BETES WITH PERIPHERAL CIRCULATORY DISORDERS TYPE II OR UNSPECIFIED TYPE UNCONTROLLED 02/15/2011 381.81 EUS TACHIAN TUBE DYSFUNCTION 02/15/2011 250.72 MONIKA BETES WITH PERIPHERAL CIRCULATORY DISORDERS TYPE II OR UNSPECIFIED TYPE UNCONTROLLED 02/15/2011 381.81 EUS TACHIAN TUBE DYSFUNCTION 02/15/2011 250.72 MONIKA BETES WITH PERIPHERAL CIRCULATORY DISORDERS TYPE II OR UNSPECIFIED TYPE UNCONTROLLED 02/15/2011 381.81 EUS TACHIAN TUBE DYSFUNCTION 02/15/2011 250.72 MONIKA BETES WITH PERIPHERAL CIRCULATORY DISORDERS TYPE II OR UNSPECIFIED TYPE UNCONTROLLED 02/15/2011 381.81 EUS TACHIAN TUBE DYSFUNCTION 02/15/2011 250.72 MONIKA BETES WITH PERIPHERAL CIRCULATORY DISORDERS TYPE II OR UNSPECIFIED TYPE UNCONTROLLED 02/15/2011 381.81 EUS TACHIAN TUBE DYSFUNCTION 02/15/2011 BOBBY DO LAURA K 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 02/15/2011 BOBBY DO LAURA K 381.81 EUSTACHIAN TUBE DYSFUNCTION 02/15/2011 BOBBY DO LAURA K 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 02/15/2011 BOBBY DO LAURA K 381.81 EUSTACHIAN TUBE DYSFUNCTION 02/15/2011 BOBBY DO LAURA K 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 02/15/2011 BOBBY DO LAURA K 381.81 EUSTACHIAN TUBE DYSFUNCTION 02/15/2011 STEVEN CLINE APRN R 250.72 DIABETES WITH PERIPHERAL CIRCULATORY DIS ORDERS TYPE II OR UNSPECIFIED TYPE UNCONTROLLED 02/15/2011 STEVEN CLINE APRN R 381.81 EUSTACHIAN TUBE DYSFUNCTION 02/15/2011 BOBBY DO LAURA K 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 02/15/2011 BOBBY DO LAURA K 381.81 EUSTACHIAN TUBE DYSFUNCTION 02/15/2011 BOBBY DO LAURA K 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 02/15/2011 BOBBY DO LAURA K 381.81 EUSTACHIAN TUBE DYSFUNCTION 02/15/2011 BOBBY DO LAURA K 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 02/15/2011 BOBBY DO LAURA K 381.81 EUSTACHIAN TUBE DYSFUNCTION 02/15/2011 BBOBY DO LAURA K 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 02/15/2011 BOBBY DO, LAURA K 381.81 EUSTACHIAN TUBE DYSFUNCTION 02/15/2011 BOBBY DO LAURA K 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 02/15/2011 BOBBY DO LAURA K 381.81 EUSTACHIAN TUBE DYSFUNCTION 02/15/2011 BOBBY DO, LAURA K 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 02/15/2011 BOBBY DO, LAURA K 381.81 EUSTACHIAN TUBE DYSFUNCTION 02/15/2011 BOBBY DO, LAURA K 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 02/15/2011 BOBBY DO, LAURA K 381.81 EUSTACHIAN TUBE DYSFUNCTION 02/15/2011 FLORA SINGH PA-C 250.72 DIABETES WITH PERIPHERAL CIRCULATORY DIS ORDERS TYPE II OR UNSPECIFIED TYPE UNCONTROLLED 02/15/2011 FLORA SINGH PA-C 381.81 EUSTACHIAN TUBE DYSFUNCTION 02/15/2011 BOBBY DO LAURA K 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 02/15/2011 BOBBY DO, LAURA K 381.81 EUSTACHIAN TUBE DYSFUNCTION 02/15/2011 BOBBY DO LAURA K 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 02/15/2011 DIAMANTE DO LAURA K 381.81 EUSTACHIAN TUBE DYSFUNCTION 05/22/2011 BOBBY DO, LAURA K 789.00 ABDOMINAL PAIN UNSPECIFIED SITE 05/22/2011 789.00 ABD OMINAL PAIN UNSPECIFIED SITE 05/22/2011 BOBBY DO, LAURA K 789.00 ABDOMINAL PAIN UNSPECIFIED SITE 05/22/2011 BOBBY DO, LAURA K 789.00 ABDOMINAL PAIN UNSPECIFIED SITE 05/22/2011 789.00 ABD OMINAL PAIN UNSPECIFIED SITE 05/22/2011 789.00 ABD OMINAL PAIN UNSPECIFIED SITE 05/22/2011 789.00 ABD OMINAL PAIN UNSPECIFIED SITE 05/22/2011 789.00 ABD OMINAL PAIN UNSPECIFIED SITE 05/22/2011 789.00 ABD OMINAL PAIN UNSPECIFIED SITE 05/22/2011 789.00 ABD OMINAL PAIN UNSPECIFIED SITE 05/22/2011 BOBBY DO, LAURA K 789.00 ABDOMINAL PAIN UNSPECIFIED SITE 05/22/2011 BOBBY DO, LAURA K 789.00 ABDOMINAL PAIN UNSPECIFIED SITE 05/22/2011 BOBBY DO, LAURA K 789.00 ABDOMINAL PAIN UNSPECIFIED SITE 05/22/2011 STEVEN CLINE APRN 789.00 ABDOMINAL PAIN UNSPECIFIED SITE 05/22/2011 BOBBY DO LAURA K 789.00 ABDOMINAL PAIN UNSPECIFIED SITE 05/22/2011 CHANO BOBBY DOA K 789.00 ABDOMINAL PAIN UNSPECIFIED SITE 05/22/2011 BOBBY DO, LAURA K 789.00 ABDOMINAL PAIN UNSPECIFIED SITE 05/22/2011 BOBBY DO, LAURA K 789.00 ABDOMINAL PAIN UNSPECIFIED SITE 05/22/2011 BOBBY DO, LAURA K 789.00 ABDOMINAL PAIN UNSPECIFIED SITE 05/22/2011 BOBBY DOCHANOA K 789.00 ABDOMINAL PAIN UNSPECIFIED SITE 05/22/2011 BOBBY DO, LAURA K 789.00 ABDOMINAL PAIN UNSPECIFIED SITE 05/22/2011 FLORA SINGH PA-C 789.00 ABDOMINAL PAIN UNSPECIFIED SITE 05/22/2011 DIAMANTE LOPEZ, LAURA K 789.00 ABDOMINAL PAIN UNSPECIFIED SITE 05/22/2011 DIAMANTE LOPEZ, LAURA K 789.00 ABDOMINAL PAIN UNSPECIFIED SITE 05/26/2011 Ot 244.9 HYPO THYROIDISM NOS 05/26/2011 Ot 250.02 MONIKA B MADISON WO COMPL, TYPE II OR UNSPEC TY 05/26/2011 Ot 276.1 HYPO SMOLALITY 05/26/2011 Ot 401.9 HYPE RTENSION NOS 05/26/2011 Ot 577.0 ACUT E PANCREATITIS 05/26/2011 Ot 584.9 ACUT E RENAL FAILURE, UNSPECIFIED 07/07/2011 LAURA BOBBY DO V04.81 FLU DX (3 YRS AND ABOVE, IM) 07/07/2011 V04.81 FLU DX (3 YRS AND ABOVE, IM) 07/07/2011 LAURA BOBBY DO V04.81 FLU DX (3 YRS AND ABOVE, IM) 07/07/2011 LAURA BOBBY DO V04.81 FLU DX (3 YRS AND ABOVE, IM) 07/07/2011 V04.81 FLU DX (3 YRS AND ABOVE, IM) 07/07/2011 V04.81 FLU DX (3 YRS AND ABOVE, IM) 07/07/2011 V04.81 FLU DX (3 YRS AND ABOVE, IM) 07/07/2011 V04.81 FLU DX (3 YRS AND ABOVE, IM) 07/07/2011 V04.81 FLU DX (3 YRS AND ABOVE, IM) 07/07/2011 V04.81 FLU DX (3 YRS AND ABOVE, IM) 07/07/2011 BOBBY DO, LAURA K V04.81 FLU DX (3 YRS AND ABOVE, IM) 07/07/2011 BOBBY DO, LAURA K V04.81 FLU DX (3 YRS AND ABOVE, IM) 07/07/2011 BOBBY DO, LAURA K V04.81 FLU DX (3 YRS AND ABOVE, IM) 07/07/2011 STEVEN CLINE APRN R V04.81 FLU DX (3 YRS AND ABOVE, IM) 07/07/2011 BOBBY DO, LAURA K V04.81 FLU DX (3 YRS AND ABOVE, IM) 07/07/2011 BOBBY DO, LAURA K V04.81 FLU DX (3 YRS AND ABOVE, IM) 07/07/2011 BOBBY DO, LAURA K V04.81 FLU DX (3 YRS AND ABOVE, IM) 07/07/2011 BOBBY DO, LAURA K V04.81 FLU DX (3 YRS AND ABOVE, IM) 07/07/2011 BOBBY DO, LAURA K V04.81 FLU DX (3 YRS AND ABOVE, IM) 07/07/2011 BOBBY DO, LAURA K V04.81 FLU DX (3 YRS AND ABOVE, IM) 07/07/2011 BOBBY DO, LAURA K V04.81 FLU DX (3 YRS AND ABOVE, IM) 07/07/2011 FLORA SINGH PA-C V04.81 FLU DX (3 YRS AND ABOVE, IM) 07/07/2011 BOBBY DO, LAURA K V04.81 FLU DX (3 YRS AND ABOVE, IM) 07/07/2011 BOBBY DO, LAURA K V04.81 FLU DX (3 YRS AND ABOVE, IM) 08/08/2011 BOBBY DO, LAURA K 789.01 ABDOMINAL PAIN RIGHT UPPER QUADRANT 08/08/2011 789.01 ABD OMINAL PAIN RIGHT UPPER QUADRANT 08/08/2011 BOBBY DO, LAURA K 789.01 ABDOMINAL PAIN RIGHT UPPER QUADRANT 08/08/2011 BOBBY DO, LAURA K 789.01 ABDOMINAL PAIN RIGHT UPPER QUADRANT 08/08/2011 789.01 ABD OMINAL PAIN RIGHT UPPER QUADRANT 08/08/2011 789.01 ABD OMINAL PAIN RIGHT UPPER QUADRANT 08/08/2011 789.01 ABD OMINAL PAIN RIGHT UPPER QUADRANT 08/08/2011 789.01 ABD OMINAL PAIN RIGHT UPPER QUADRANT 08/08/2011 789.01 ABD OMINAL PAIN RIGHT UPPER QUADRANT 08/08/2011 789.01 ABD OMINAL PAIN RIGHT UPPER QUADRANT 08/08/2011 BOBBY DO, LAURA K 789.01 ABDOMINAL PAIN RIGHT UPPER QUADRANT 08/08/2011 BOBBY DO, LAURA K 789.01 ABDOMINAL PAIN RIGHT UPPER QUADRANT 08/08/2011 BOBBY DO, LAURA K 789.01 ABDOMINAL PAIN RIGHT UPPER QUADRANT 08/08/2011 STEVEN CLINE APRN 789.01 ABDOMINAL PAIN RIGHT UPPER QUADRANT 08/08/2011 BOBBY DO, LAURA K 789.01 ABDOMINAL PAIN RIGHT UPPER QUADRANT 08/08/2011 BOBBY DO, LAURA K 789.01 ABDOMINAL PAIN RIGHT UPPER QUADRANT 08/08/2011 BOBBY DO, LAURA K 789.01 ABDOMINAL PAIN RIGHT UPPER QUADRANT 08/08/2011 BOBBY DO, LAURA K 789.01 ABDOMINAL PAIN RIGHT UPPER QUADRANT 08/08/2011 BOBBY DO, LAURA K 789.01 ABDOMINAL PAIN RIGHT UPPER QUADRANT 08/08/2011 BOBBY DO, LAURA K 789.01 ABDOMINAL PAIN RIGHT UPPER QUADRANT 08/08/2011 BOBBY DO, LAURA K 789.01 ABDOMINAL PAIN RIGHT UPPER QUADRANT 08/08/2011 FLORA SINGH PA-C 789.01 ABDOMINAL PAIN RIGHT UPPER QUADRANT 08/08/2011 BOBBY DO, LAURA K 789.01 ABDOMINAL PAIN RIGHT UPPER QUADRANT 08/08/2011 BOBBY DO, LAURA K 789.01 ABDOMINAL PAIN RIGHT UPPER QUADRANT 09/15/2011 Ot 455.0 INT HEMORRHOID W/O COMPL 09/15/2011 Ot 530.11 REF LUX ESOPHAGITIS 09/15/2011 Ot 535.40 OTH SPECIFIED GASTRITIS,W/O MENTION OF H 09/15/2011 Ot 553.3 DIAP HRAGMATIC HERNIA 09/15/2011 Ot 562.10 DIV 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 09/15/2011 Ot 787.91 MONIKA RRHEA 09/15/2011 Ot V12.72 PER RANDAL HISTORY OF COLONIC POLYPS 04/01/2012 LAURA BOBBY DO 216.9 MOLE/NEVUS - SITE UNSPECIFIED 04/01/2012 216.9 MOLE /NEVUS - SITE UNSPECIFIED 04/01/2012 LAURA BOBBY DO 216.9 MOLE/NEVUS - SITE UNSPECIFIED 04/01/2012 LAURA BOBBY DO 216.9 MOLE/NEVUS - SITE UNSPECIFIED 04/01/2012 216.9 MOLE /NEVUS - SITE UNSPECIFIED 04/01/2012 216.9 MOLE /NEVUS - SITE UNSPECIFIED 04/01/2012 216.9 MOLE /NEVUS - SITE UNSPECIFIED 04/01/2012 216.9 MOLE /NEVUS - SITE UNSPECIFIED 04/01/2012 216.9 MOLE /NEVUS - SITE UNSPECIFIED 04/01/2012 216.9 MOLE /NEVUS - SITE UNSPECIFIED 04/01/2012 BOBBY DO, LAURA K 216.9 MOLE/NEVUS - SITE UNSPECIFIED 04/01/2012 BOBBY DO, LAURA K 216.9 MOLE/NEVUS - SITE UNSPECIFIED 04/01/2012 BOBBY DO, LAURA K 216.9 MOLE/NEVUS - SITE UNSPECIFIED 04/01/2012 STEVEN CLINE APRN 216.9 MOLE/NEVUS - SITE UNSPECIFIED 04/01/2012 BOBBY DO, LAURA K 216.9 MOLE/NEVUS - SITE UNSPECIFIED 04/01/2012 BOBBY DO, LAURA K 216.9 MOLE/NEVUS - SITE UNSPECIFIED 04/01/2012 BOBBY DO, LAURA K 216.9 MOLE/NEVUS - SITE UNSPECIFIED 04/01/2012 BOBBY DO, LAURA K 216.9 MOLE/NEVUS - SITE UNSPECIFIED 04/01/2012 BOBBY DO, LAURA K 216.9 MOLE/NEVUS - SITE UNSPECIFIED 04/01/2012 BOBBY DO, LAURA K 216.9 MOLE/NEVUS - SITE UNSPECIFIED 04/01/2012 BOBBY DO, LAURA K 216.9 MOLE/NEVUS - SITE UNSPECIFIED 04/01/2012 FLORA SINGH PA-C 216.9 MOLE/NEVUS - SITE UNSPECIFIED 04/01/2012 BOBBY DO, LAURA K 216.9 MOLE/NEVUS - SITE UNSPECIFIED 04/01/2012 BOBBY DO, LAURA K 216.9 MOLE/NEVUS - SITE UNSPECIFIED 07/11/2012 BOBBY DO, LAURA K 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 UNCONTROLLED OR UNSPECIFIED 07/11/2012 249.60 SEC ONDARY DIABETES MELLITUS WITH NEUROLOGICAL MANIFESTATION NOT STATED UNCONTROLLED OR UNSPECIFIED 07/11/2012 BOBBY DO, LAURA K 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 UNCONTROLLED OR UNSPECIFIED 07/11/2012 BOBBY DO, LAURA K 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 UNCONTROLLED OR UNSPECIFIED 07/11/2012 249.60 SEC ONDARY DIABETES MELLITUS WITH NEUROLOGICAL MANIFESTATION NOT STATED UNCONTROLLED OR UNSPECIFIED 07/11/2012 249.60 SEC ONDARY DIABETES MELLITUS WITH NEUROLOGICAL MANIFESTATION NOT STATED UNCONTROLLED OR UNSPECIFIED 07/11/2012 249.60 SEC ONDARY DIABETES MELLITUS WITH NEUROLOGICAL MANIFESTATION NOT STATED UNCONTROLLED OR UNSPECIFIED 07/11/2012 249.60 SEC ONDARY DIABETES MELLITUS WITH NEUROLOGICAL MANIFESTATION NOT STATED UNCONTROLLED OR UNSPECIFIED 07/11/2012 249.60 SEC ONDARY DIABETES MELLITUS WITH NEUROLOGICAL MANIFESTATION NOT STATED UNCONTROLLED OR UNSPECIFIED 07/11/2012 249.60 SEC ONDARY DIABETES MELLITUS WITH NEUROLOGICAL MANIFESTATION NOT STATED UNCONTROLLED OR UNSPECIFIED 07/11/2012 ALURA BOBBY DO 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 UNCONTROLLED OR UNSPECIFIED 07/11/2012 LAURA BOBBY DO 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 UNCONTROLLED OR UNSPECIFIED 07/11/2012 LAURA BOBBY DO 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 UNCONTROLLED OR UNSPECIFIED 07/11/2012 STEVEN CLINE APRN 249.60 SECONDARY DIABETES MELLITUS WITH NEUROLO GICAL MANIFESTATION NOT STATED UNCONTROLLED OR UNSPECIFIED 07/11/2012 LAURA BOBBY DO 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 UNCONTROLLED OR UNSPECIFIED 07/11/2012 LAURA BOBBY DO 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 UNCONTROLLED OR UNSPECIFIED 07/11/2012 LAURA BOBBY DO 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 UNCONTROLLED OR UNSPECIFIED 07/11/2012 LAURA BOBBY DO 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 UNCONTROLLED OR UNSPECIFIED 07/11/2012 LAURA BOBBY DO 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 UNCONTROLLED OR UNSPECIFIED 07/11/2012 LAURA BOBBY DO 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 UNCONTROLLED OR UNSPECIFIED 07/11/2012 LAURA BOBBY DO 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 UNCONTROLLED OR UNSPECIFIED 07/11/2012 FLORA SINGH PA-C 249.60 SECONDARY DIABETES MELLITUS WITH NEUROLO GICAL MANIFESTATION NOT STATED UNCONTROLLED OR UNSPECIFIED 07/11/2012 BOBBY DO, LAURA K 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 UNCONTROLLED OR UNSPECIFIED 07/11/2012 BOBBY DO, LAURA K 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 UNCONTROLLED OR UNSPECIFIED 08/18/2012 BOBBY DO, LAURA K 276.1 HYPONATREMIA 08/18/2012 276.1 HYPO NATREMIA 08/18/2012 BOBBY DO, LAURA K 276.1 HYPONATREMIA 08/18/2012 BOBBY DO, LAURA K 276.1 HYPONATREMIA 08/18/2012 276.1 HYPO NATREMIA 08/18/2012 276.1 HYPO NATREMIA 08/18/2012 276.1 HYPO NATREMIA 08/18/2012 276.1 HYPO NATREMIA 08/18/2012 276.1 HYPO NATREMIA 08/18/2012 276.1 HYPO NATREMIA 08/18/2012 BOBBY DO, LAURA K 276.1 HYPONATREMIA 08/18/2012 BOBBY DO, LAURA K 276.1 HYPONATREMIA 08/18/2012 BOBBY DO, LAURA K 276.1 HYPONATREMIA 08/18/2012 STEVEN CLINE APRN 276.1 HYPONATREMIA 08/18/2012 BOBBY DO, LAURA K 276.1 HYPONATREMIA 08/18/2012 BOBBY DO, LAURA K 276.1 HYPONATREMIA 08/18/2012 BOBBY DO, LAURA K 276.1 HYPONATREMIA 08/18/2012 BOBBY DO, LAURA K 276.1 HYPONATREMIA 08/18/2012 BOBBY DO, LAURA K 276.1 HYPONATREMIA 08/18/2012 BOBBY DO, LAURA K 276.1 HYPONATREMIA 08/18/2012 BOBBY DO, LAURA K 276.1 HYPONATREMIA 08/18/2012 FLORA SINGH PA-C 276.1 HYPONATREMIA 08/18/2012 BOBBY DO, LAURA K 276.1 HYPONATREMIA 08/18/2012 BBOBY DO, LAURA K 276.1 HYPONATREMIA 09/16/2012 BOBBY DO, LAURA K 356.9 UNSPECIFIED IDIOPATHIC PERIPHERAL NEUROPATHY 09/16/2012 BOBBY DO, LAURA K 786.05 SHORTNESS OF BREATH 09/16/2012 356.9 UNSP ECIFIED IDIOPATHIC PERIPHERAL NEUROPATHY 09/16/2012 786.05 FRANC RTNESS OF BREATH 09/16/2012 BOBBY DO, LAURA K 356.9 UNSPECIFIED IDIOPATHIC PERIPHERAL NEUROPATHY 09/16/2012 BOBBY DO, LAURA K 786.05 SHORTNESS OF BREATH 09/16/2012 BOBBY DO, LAURA K 356.9 PERIPHERAL NEUROPATHY 09/16/2012 BOBBY DO, LAURA K 786.05 SHORTNESS OF BREATH 09/16/2012 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 09/16/2012 786.05 FRANC RTNESS OF BREATH 09/16/2012 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 09/16/2012 786.05 FRANC RTNESS OF BREATH 09/16/2012 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 09/16/2012 786.05 FRANC RTNESS OF BREATH 09/16/2012 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 09/16/2012 786.05 FRANC RTNESS OF BREATH 09/16/2012 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 09/16/2012 786.05 FRANC RTNESS OF BREATH 09/16/2012 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 09/16/2012 786.05 FRANC RTNESS OF BREATH 09/16/2012 BOBBY DO, LAURA K 356.9 PERIPHERAL NEUROPATHY 09/16/2012 BOBBY DO, LAURA K 786.05 SHORTNESS OF BREATH 09/16/2012 BOBBY DO, LAURA K 356.9 PERIPHERAL NEUROPATHY 09/16/2012 BOBBY DO, LAURA K 786.05 SHORTNESS OF BREATH 09/16/2012 BOBBY DO, LAURA K 356.9 PERIPHERAL NEUROPATHY 09/16/2012 BOBBY DO, LAURA K 786.05 SHORTNESS OF BREATH 09/16/2012 [facility]NAGER, STEVEN R 356.9 PERIPHERAL NEUROPATHY 09/16/2012 [facility] [employer]GER, SETVEN R 786.05 SHORTNESS OF BREATH 09/16/2012 BOBBY DO, LAURA K 356.9 PERIPHERAL NEUROPATHY 09/16/2012 BOBBY DO, LAURA K 786.05 SHORTNESS OF BREATH 09/16/2012 BOBBY DO, LAURA K 356.9 PERIPHERAL NEUROPATHY 09/16/2012 BOBBY DO, LAURA K 786.05 SHORTNESS OF BREATH 09/16/2012 BOBBY DO, LAURA K 356.9 PERIPHERAL NEUROPATHY 09/16/2012 BOBBY DO, LAURA K 786.05 SHORTNESS OF BREATH 09/16/2012 BOBBY DO, LAURA K 356.9 PERIPHERAL NEUROPATHY 09/16/2012 BOBBY DO, LAURA K 786.05 SHORTNESS OF BREATH 09/16/2012 BOBBY DO, LAURA K 356.9 PERIPHERAL NEUROPATHY 09/16/2012 BOBBY DO, LAURA K 786.05 SHORTNESS OF BREATH 09/16/2012 BOBBY DO, LAURA K 356.9 PERIPHERAL NEUROPATHY 09/16/2012 BOBBY DO, LAURA K 786.05 SHORTNESS OF BREATH 09/16/2012 BOBBY DO, LAURA K 356.9 PERIPHERAL NEUROPATHY 09/16/2012 BOBBY DO, LAURA K 786.05 SHORTNESS OF BREATH 09/16/2012 FLORA SINGH PA-C 356.9 PERIPHERAL NEUROPATHY 09/16/2012 FLORA SINGH PA-C 786.05 SHORTNESS OF BREATH 09/16/2012 BOBBY DO, LAURA K 356.9 PERIPHERAL NEUROPATHY 09/16/2012 BOBBY DO, LAURA K 786.05 SHORTNESS OF BREATH 09/16/2012 BOBBY DO, LAURA K 356.9 PERIPHERAL NEUROPATHY 09/16/2012 BOBBY DO, LAURA K 786.05 SHORTNESS OF BREATH 10/24/2012 780.94 EAR LY SATIETY 10/24/2012 BOBBY DO, LAURA K 780.94 EARLY SATIETY 10/24/2012 BOBBY DO, LAURA K 780.94 EARLY SATIETY 10/24/2012 780.94 EAR LY SATIETY 10/24/2012 780.94 EAR LY SATIETY 10/24/2012 780.94 EAR LY SATIETY 10/24/2012 780.94 EAR LY SATIETY 10/24/2012 780.94 EAR LY SATIETY 10/24/2012 780.94 EAR LY SATIETY 10/24/2012 BOBBY DO, LAURA K 780.94 EARLY SATIETY 10/24/2012 BOBBY DO, LAURA K 780.94 EARLY SATIETY 10/24/2012 BOBBY DO, LAURA K 780.94 EARLY SATIETY 10/24/2012 STEVEN CLINE APRN 780.94 EARLY SATIETY 10/24/2012 BOBBY DO, LAURA K 780.94 EARLY SATIETY 10/24/2012 BOBBY DO, LAURA K 780.94 EARLY SATIETY 10/24/2012 BOBBY DO, LAURA K 780.94 EARLY SATIETY 10/24/2012 BOBBY DO, LAURA K 780.94 EARLY SATIETY 10/24/2012 BOBBY DO, LAURA K 780.94 EARLY SATIETY 10/24/2012 BOBBY DO, LAURA K 780.94 EARLY SATIETY 10/24/2012 BOBBY DO, LAURA K 780.94 EARLY SATIETY 10/24/2012 FLORA SINGH PA-C 780.94 EARLY SATIETY 10/24/2012 BOBBY DO, LAURA K 780.94 EARLY SATIETY 10/24/2012 BOBBY DO, LAURA K 780.94 EARLY SATIETY 01/14/2013 BOBBY DO, LAURA K 780.52 insomnia 01/14/2013 780.52 ins omnia 01/14/2013 780.52 ins omnia 01/14/2013 780.52 ins omnia 01/14/2013 780.52 ins omnia 01/14/2013 780.52 ins omnia 01/14/2013 780.52 ins omnia 01/14/2013 BOBBY DO, LAURA K 780.52 insomnia 01/14/2013 BOBBY DO, LAURA K 780.52 insomnia 01/14/2013 BOBBY DO, LAURA K 780.52 insomnia 01/14/2013 STEVEN CLINE APRN 780.52 insomnia 01/14/2013 BOBBY DO, LAURA K 780.52 insomnia 01/14/2013 BOBBY DO, LAURA K 780.52 insomnia 01/14/2013 BOBBY DO, LAURA K 780.52 insomnia 01/14/2013 BOBBY DO, LAURA K 780.52 insomnia 01/14/2013 BOBBY DO, LAURA K 780.52 insomnia 01/14/2013 BOBBY DO, LAURA K 780.52 insomnia 01/14/2013 BOBBY DO, LAURA K 780.52 insomnia 01/14/2013 FLORA SINGH PA-C 780.52 insomnia 01/14/2013 BOBBY DO, LAURA K 780.52 insomnia 01/14/2013 BOBBY DO, LAURA K 780.52 insomnia 03/22/2013 KIERRA TALBOT MD Ot 250.00 DIAB MADISON WO COMPL, TYPE II OR UNSPEC TY 03/22/2013 KIERRA TALBOT MD Ot 466.0 ACUTE BRONCHITIS 03/22/2013 KIERRA TALBOT MD Ot 786.07 WHEEZING 03/22/2013 KIERRA TALBOT MD Ot V58.67 LONG-TERM (CURRENT) USE OF INSULIN 04/15/2013 244.9 UNSP ECIFIED ACQUIRED HYPOTHYROIDISM 04/15/2013 401.1 HYPE RTENSION, BENIGN ESSENTIAL 04/15/2013 244.9 UNSP ECIFIED ACQUIRED HYPOTHYROIDISM 04/15/2013 401.1 HYPE RTENSION, BENIGN ESSENTIAL 04/15/2013 244.9 UNSP ECIFIED ACQUIRED HYPOTHYROIDISM 04/15/2013 401.1 HYPE RTENSION, BENIGN ESSENTIAL 04/15/2013 244.9 UNSP ECIFIED ACQUIRED HYPOTHYROIDISM 04/15/2013 401.1 HYPE RTENSION, BENIGN ESSENTIAL 04/15/2013 BOBBY DO, ALURA K 244.9 UNSPECIFIED ACQUIRED HYPOTHYROIDISM 04/15/2013 BOBBY DO, LAURA K 401.1 HYPERTENSION, BENIGN ESSENTIAL 04/15/2013 BOBBY DO, LAURA K 244.9 UNSPECIFIED ACQUIRED HYPOTHYROIDISM 04/15/2013 BOBBY DO, LAURA K 401.1 HYPERTENSION, BENIGN ESSENTIAL 04/15/2013 BOBBY DO, LAURA K 244.9 UNSPECIFIED ACQUIRED HYPOTHYROIDISM 04/15/2013 BOBBY DO, LAURA K 401.1 HYPERTENSION, BENIGN ESSENTIAL 04/15/2013 [facility], STEVEN R 244.9 UNSPECIFIED ACQUIRED HYPOTHYROIDISM 04/15/2013 [facility] ACC[employer] MANAGER, STEVEN R 401.1 HYPERTENSION, BENIGN ESSENTIAL 04/15/2013 BOBBY DO, LAURA K 244.9 UNSPECIFIED ACQUIRED HYPOTHYROIDISM 04/15/2013 BOBBY DO, LAURA K 401.1 HYPERTENSION, BENIGN ESSENTIAL 04/15/2013 BOBBY DO, LAURA K 244.9 UNSPECIFIED ACQUIRED HYPOTHYROIDISM 04/15/2013 BOBBY DO, LAURA K 401.1 HYPERTENSION, BENIGN ESSENTIAL 04/15/2013 BOBBY DO, LAURA K 244.9 UNSPECIFIED ACQUIRED HYPOTHYROIDISM 04/15/2013 BOBBY DO, LAURA K 401.1 HYPERTENSION, BENIGN ESSENTIAL 04/15/2013 BOBBY DO, LAURA K 244.9 UNSPECIFIED ACQUIRED HYPOTHYROIDISM 04/15/2013 BOBBY DO, LAURA K 401.1 HYPERTENSION, BENIGN ESSENTIAL 04/15/2013 BOBBY DO, LAURA K 244.9 UNSPECIFIED ACQUIRED HYPOTHYROIDISM 04/15/2013 BOBBY DO, LAURA K 401.1 HYPERTENSION, BENIGN ESSENTIAL 04/15/2013 BOBBY DO, LAURA K 244.9 UNSPECIFIED ACQUIRED HYPOTHYROIDISM 04/15/2013 BOBBY DO, LAURA K 401.1 HYPERTENSION, BENIGN ESSENTIAL 04/15/2013 BOBBY DO, LAURA K 244.9 UNSPECIFIED ACQUIRED HYPOTHYROIDISM 04/15/2013 BOBBY DO, LAURA K 401.1 HYPERTENSION, BENIGN ESSENTIAL 04/15/2013 FLORA SINGH PA-C 244.9 UNSPECIFIED ACQUIRED HYPOTHYROIDISM 04/15/2013 FLORA SINGH PA-C 401.1 HYPERTENSION, BENIGN ESSENTIAL 04/15/2013 BOBBY DO, LAURA K 244.9 UNSPECIFIED ACQUIRED HYPOTHYROIDISM 04/15/2013 BOBBY DO, LAURA K 401.1 HYPERTENSION, BENIGN ESSENTIAL 04/15/2013 BOBBY DO, LAURA K 244.9 UNSPECIFIED ACQUIRED HYPOTHYROIDISM 04/15/2013 BOBBY DO, LAURA K 401.1 HYPERTENSION, BENIGN ESSENTIAL 07/26/2013 BOBBY DO, LAURA K 790.4 ABNORMAL LFT (ELEVATED) 07/26/2013 BOBBY DO, LAURA K 790.4 ABNORMAL LFT (ELEVATED) 07/26/2013 BOBBY DO, LAURA K 790.4 ABNORMAL LFT (ELEVATED) 07/26/2013 STEVEN CLINE APRN R 790.4 ABNORMAL LFT (ELEVATED) 07/26/2013 BOBBY DO, LAURA K 790.4 ABNORMAL LFT (ELEVATED) 07/26/2013 BOBBY DO, LAURA K 790.4 ABNORMAL LFT (ELEVATED) 07/26/2013 BOBBY DO, LAURA K 790.4 ABNORMAL LFT (ELEVATED) 07/26/2013 BOBBY DO, LAURA K 790.4 ABNORMAL LFT (ELEVATED) 07/26/2013 BOBBY DO, LAURA K 790.4 ABNORMAL LFT (ELEVATED) 07/26/2013 BOBBY DO, LAURA K 790.4 ABNORMAL LFT (ELEVATED) 07/26/2013 BOBBY DO, LAURA K 790.4 ABNORMAL LFT (ELEVATED) 07/26/2013 FLORA SINGH PA-C 790.4 ABNORMAL LFT (ELEVATED) 07/26/2013 BOBBY DO, LAURA K 790.4 ABNORMAL LFT (ELEVATED) 07/26/2013 BOBBY DO, LAURA K 790.4 ABNORMAL LFT (ELEVATED) 10/23/2013 BOBBY DO, LAURA K 564.00 CONSTIPATION 10/23/2013 STEVEN CLINE APRN R 564.00 CONSTIPATION 10/23/2013 BOBBY DO, LAURA K 564.00 CONSTIPATION 10/23/2013 BOBBY DO, LAURA K 564.00 CONSTIPATION 10/23/2013 BOBBY DO, LAURA K 564.00 CONSTIPATION 10/23/2013 BOBBY DO, LAURA K 564.00 CONSTIPATION 10/23/2013 BOBBY DO, LAURA K 564.00 CONSTIPATION 10/23/2013 BOBBY DO, LAURA K 564.00 CONSTIPATION 10/23/2013 BOBBY DO, LAURA K 564.00 CONSTIPATION 10/23/2013 FLORA SINGH PA-C 564.00 CONSTIPATION 10/23/2013 BOBBY DO, LAURA K 564.00 CONSTIPATION 10/23/2013 BOBBY , LAURA K 564.00 CONSTIPATION 01/06/2014 BOBBY DO, LAURA K 461.9 SINUSITIS ACUTE 01/06/2014 BOBBY DO, LAURA K 461.9 SINUSITIS ACUTE 01/06/2014 BOBBY DO, LAURA K 461.9 SINUSITIS ACUTE 01/06/2014 BOBBY DO, LAURA K 461.9 SINUSITIS ACUTE 01/06/2014 BOBBY DO, LAURA K 461.9 SINUSITIS ACUTE 01/06/2014 BOBBY DO, LAURA K 461.9 SINUSITIS ACUTE 01/06/2014 BOBBY DO, LAURA K 461.9 SINUSITIS ACUTE 01/06/2014 FLORA SINGH PA-C 461.9 SINUSITIS ACUTE 01/06/2014 BOBBY DO, LAURA K 461.9 SINUSITIS ACUTE 01/06/2014 BOBBY DO, LAURA K 461.9 SINUSITIS ACUTE 08/14/2014 CHARLES JI MD Ot 250.00 DIAB MADISON WO COMPL, TYPE II OR UNSPEC TY 08/14/2014 CHARLES JI MD Ot 401 .9 HYPERTENSION NOS 08/14/2014 CHARLES JI MD Ot 496 CHR AIRWAY OBSTRUCT NEC 08/14/2014 CHARLES JI MD Ot 786.50 CHEST PAIN NOS 08/14/2014 CHARLES JI MD Ot 786.52 PAINFUL RESPIRATION 08/14/2014 CHARLES JI MD Ot 789.00 ABDOMINAL PAIN, UNSPECIFIED SITE 08/14/2014 CHARLES JI MD Ot V15.82 HISTORY OF TOBACCO USE 08/14/2014 CHARLES JI MD Ot V58.67 LONG-TERM (CURRENT) USE OF INSULIN 10/19/2014 LAURA BOBBY DO K 276.51 DEHYDRATION 10/19/2014 CHANO BOBBY DOA K 787.01 NAUSEA WITH VOMITING 10/19/2014 CHANO BOBBY DOA K 276.51 DEHYDRATION 10/19/2014 CHANO BOBBY DOA K 787.01 NAUSEA WITH VOMITING 10/28/2014 KERRI BEST, AGUSTIN Marmolejo Ot 038.9 10/28/2014 KERRI BEST, AGUSTIN Marmolejo Ot 244.9 10/28/2014 AGUSTIN MANNING MD Ot 250.00 10/28/2014 AGUSTIN MANNING MD Ot 272.0 10/28/2014 KERRI BEST, AGUSTIN Marmolejo Ot 338.29 10/28/2014 KERRI BEST, AGUSTIN Marmolejo Ot 401.9 10/28/2014 KERRI BEST, AGUSTIN Marmoeljo Ot 49 6 10/28/2014 KERRI BEST, AGUSTIN Marmolejo Ot 567.22 10/28/2014 AGUSTIN MANNING MD Ot 574.00 10/28/2014 AGUSTIN MANNING MD Ot 724.5 10/28/2014 KERRI BEST, AGUSTIN Marmolejo Ot 780.57 10/28/2014 AGUSTIN MANNING MD Ot 785.52 10/28/2014 AGUSTIN MANNING MD Ot 995.92 10/28/2014 AGUSTIN MANNING MD Ot V58.67 10/28/2014 AGUSTIN MANNING MD Ot 038.9 SEPTICEMIA NOS 10/28/2014 AGUSTIN MANNING MD Ot 244.9 HYPOTHYROIDISM NOS 10/28/2014 AGUSTIN MANNING MD Ot 250.00 DIAB MADISON WO COMPL, TYPE II OR UNSPEC TY 10/28/2014 AGUSTIN MANNING MD Ot 272.0 PURE HYPERCHOLESTEROLEM 10/28/2014 AGUSTIN MANNING MD Ot 338.29 OTHER CHRONIC PAIN 10/28/2014 AGUSTIN MANNING MD Ot 401.9 HYPERTENSION NOS 10/28/2014 KERRI BEST, AGUSTIN Marmolejo Ot 49 6 CHR AIRWAY OBSTRUCT NEC 10/28/2014 AGUSTIN MANNING MD Ot 567.22 PERITONEAL ABSCESS 10/28/2014 AGUSTIN MANNING MD Ot 574.00 CHOLELITH W AC CHOLECYST 10/28/2014 AGUSTIN MANNING MD Ot 724.5 BACKACHE NOS 10/28/2014 AGUSTIN MANNING MD Ot 780.57 UNSPECIFIED SLEEP APNEA 10/28/2014 AGUSTIN MANNING MD Ot 785.52 SEPTIC SHOCK 10/28/2014 AGUSTIN MANNING MD Ot 995.92 SEVERE SEPSIS 10/28/2014 AGUSTIN MANNING MD Ot V58.67 LONG-TERM (CURRENT) USE OF INSULIN 11/02/2014 AGUSTIN MANNING MD Ot 038.9 11/02/2014 AGUSTIN MANNING MD Ot 244.9 11/02/2014 AGUSTIN MANNING MD Ot 250.00 11/02/2014 KERRI BEST, AGUSTIN S Ot 272.0 11/02/2014 KERRI BEST, AGUSTIN S Ot 338.29 11/02/2014 KERRI BEST, AGUSTIN S Ot 401.9 11/02/2014 KERRI BEST, AGUSTIN S Ot 49 6 11/02/2014 KERRI BEST, AGUSTIN S Ot 567.22 11/02/2014 KERRI BEST, AGUSTIN S Ot 574.00 11/02/2014 KERRI BEST, AGUSTIN S Ot 724.5 11/02/2014 KERRI BEST, AGUSTIN S Ot 780.57 11/02/2014 KERRI BEST, AGUSTIN S Ot 785.52 11/02/2014 KERRI BEST, AGUSTIN S Ot 995.92 11/02/2014 KERRI BEST, AGUSTIN S Ot V58.67 11/02/2014 KERRI BEST, AGUSTIN S Ot 038.9 11/02/2014 KERRI BEST, AGUSTIN S Ot 244.9 11/02/2014 KERRI BEST, AGUSTIN S Ot 250.00 11/02/2014 KERRI BEST, AGUSTIN S Ot 272.0 11/02/2014 KERRI BEST, AGUSTIN S Ot 338.29 11/02/2014 KERRI BEST, AGUSTIN S Ot 401.9 11/02/2014 KERRI BEST, AGUSTIN S Ot 49 6 11/02/2014 KERRI BEST, AGUSTIN S Ot 567.22 11/02/2014 KERRI BEST, AGUSTIN S Ot 574.00 11/02/2014 KERRI BEST, AGUSTIN S Ot 724.5 11/02/2014 KERRI BEST, AGUSTIN S Ot 780.57 11/02/2014 KERRI BEST, AGUSTIN S Ot 785.52 11/02/2014 KERRI BEST, AGUSTIN S Ot 995.92 11/02/2014 KERRI BEST, AGUSTIN S Ot V58.67 01/05/2015 LAURA BOBBY DO 381.81 DYSFUNCTION OF EUSTACHIAN TUBE 10/30/2016 KATTY PACK DO Ot R19. 7 DIARRHEA, UNSPECIFIED 10/30/2016 KATTY PACK DO Ot R19. 7 DIARRHEA, UNSPECIFIED 10/30/2016 KATTY PACK DO Ot Z01.818 ENCOUNTER FOR OTHER PREPROCEDURAL EXAMIN 10/30/2016 PACK DO, KATTY D Ot R19. 7 DIARRHEA, UNSPECIFIED 10/30/2016 PACK DO, KATTY D Ot Z01.818 ENCOUNTER FOR OTHER PREPROCEDURAL EXAMIN 11/01/2016 PACK DO, KATTY D Ot R19. 7 DIARRHEA, UNSPECIFIED 11/01/2016 PACK DO, KATTY D Ot Z01.818 ENCOUNTER FOR OTHER PREPROCEDURAL EXAMIN 11/24/2016 PACK DO, KATTY D Ot R19. 7 DIARRHEA, UNSPECIFIED 01/23/2017 PACK DO, KATTY D Ot R19. 7 DIARRHEA, UNSPECIFIED 04/10/2017 PACK DO, KATTY D Ot R19. 7 DIARRHEA, UNSPECIFIED 04/10/2017 PACK DO, KATTY D Ot Z01.818 ENCOUNTER FOR OTHER PREPROCEDURAL EXAMIN 04/10/2017 PACK DO, KATTY D Ot R19. 7 DIARRHEA, UNSPECIFIED 04/10/2017 SADE RODAS APRN Ot E11 .9 TYPE 2 DIABETES MELLITUS WITHOUT COMPLIC 04/10/2017 SADE RODAS APRN Ot I10 ESSENTIAL (PRIMARY) HYPERTENSION 04/10/2017 SADE RODAS APRN Ot J44 .9 CHRONIC OBSTRUCTIVE PULMONARY DISEASE, U 04/10/2017 SADE RODAS APRN Ot N30.01 ACUTE CYSTITIS WITH HEMATURIA 04/10/2017 SADE RODAS APRN Ot R35 .0 FREQUENCY OF MICTURITION 04/10/2017 SADE RODAS APRN Ot Z23 ENCOUNTER FOR IMMUNIZATION 04/10/2017 SADE RODAS APRN Ot Z79 .4 PBX WIRE CHIEF (CURRENT) USE OF INSULIN 04/10/2017 SADE RODAS APRN Ot Z79.84 PBX WIRE CHIEF (CURRENT) USE OF ORAL HYPOGLYC 04/10/2017 SADE RODAS APRN Ot Z79.899 OTHER SKILLED NURSING (CURRENT) DRUG THERAPY 04/12/2017 SADE RODAS APRN Ot E11 .9 TYPE 2 DIABETES MELLITUS WITHOUT COMPLIC 04/12/2017 SADE RODAS APRN Ot I10 ESSENTIAL (PRIMARY) HYPERTENSION 04/12/2017 SADE RODAS APRN Ot J44 .9 CHRONIC OBSTRUCTIVE PULMONARY DISEASE, U 04/12/2017 SADE RODAS APRN Ot N30.01 ACUTE CYSTITIS WITH HEMATURIA 04/12/2017 SADE RODAS HEALTHCARE ACCOUNT MANAGER Ot R35 .0 FREQUENCY OF MICTURITION 04/12/2017 SADE RODAS HEALTHCARE ACCOUNT MANAGER Ot Z23 ENCOUNTER FOR IMMUNIZATION 04/12/2017 SADE RODAS APRN Ot Z79 .4 PBX WIRE CHIEF (CURRENT) USE OF INSULIN 04/12/2017 SADE RODAS APRN Ot Z79.84 PBX WIRE CHIEF (CURRENT) USE OF ORAL HYPOGLYC 04/12/2017 SADE RODAS APRN Ot Z79.899 OTHER SKILLED NURSING (CURRENT) DRUG THERAPY 05/11/2017 SADE RODAS APRN Ot E11 .9 TYPE 2 DIABETES MELLITUS WITHOUT COMPLIC 05/11/2017 SADE RODAS APRN Ot I10 ESSENTIAL (PRIMARY) HYPERTENSION 05/11/2017 SADE RODAS APRN Ot J44 .9 CHRONIC OBSTRUCTIVE PULMONARY DISEASE, U 05/11/2017 SADE RODAS APRN Ot N30.01 ACUTE CYSTITIS WITH HEMATURIA 05/11/2017 SADE RODAS APRN Ot R35 .0 FREQUENCY OF MICTURITION 05/11/2017 SADE RODAS APRN Ot Z23 ENCOUNTER FOR IMMUNIZATION 05/11/2017 SADE RODAS APRN Ot Z79 .4 PBX WIRE CHIEF (CURRENT) USE OF INSULIN 05/11/2017 SADE RODAS APRN Ot Z79.84 PBX WIRE CHIEF (CURRENT) USE OF ORAL HYPOGLYC 05/11/2017 SADE RODAS HEALTHCARE ACCOUNT MANAGER Ot Z79.899 OTHER SKILLED NURSING (CURRENT) DRUG THERAPY 06/18/2017 KATTY PACK DO Ot R19. 7 DIARRHEA, UNSPECIFIED 06/18/2017 KATTY PACK DO Ot Z01.818 ENCOUNTER FOR OTHER PREPROCEDURAL EXAMIN 06/18/2017 KATTY PACK DO Ot R19. 7 DIARRHEA, UNSPECIFIED 06/19/2017 KATTY PACK DO Ot R19. 7 DIARRHEA, UNSPECIFIED 06/19/2017 KATTY PACK DO Ot Z01.818 ENCOUNTER FOR OTHER PREPROCEDURAL EXAMIN 06/19/2017 KATTY PACK DO Ot R19. 7 DIARRHEA, UNSPECIFIED 07/06/2017 CHLOE GIBBS Ot R22.1 LOCALIZED SWELLING, MASS AND LUMP, NECK 11/08/2017 PACK DO, KATTY D Ot R19. 7 DIARRHEA, UNSPECIFIED 11/08/2017 PACK DO KATTY D Ot Z01.818 ENCOUNTER FOR OTHER PREPROCEDURAL EXAMIN 11/08/2017 PACK DOADDYTT D Ot R19. 7 DIARRHEA, UNSPECIFIED 11/08/2017 CHLOE GIBBS Ot R22.1 LOCALIZED SWELLING, MASS AND LUMP, NECK 11/20/2017 PATRICIA PARKER APRN Ot K43.9 VENTRAL HERNIA WITHOUT OBSTRUCTION OR GA 11/20/2017 PATRICIA PARKER HEALTHCARE ACCOUNT MANAGER Ot R19.7 DIARRHEA, UNSPECIFIED 11/20/2017 PATRICIA PARKER HEALTHCARE ACCOUNT MANAGER Ot R63.4 ABNORMAL WEIGHT LOSS 12/07/2017 PACK DO KATTY D Ot R19. 7 DIARRHEA, UNSPECIFIED 12/07/2017 PACK DO KATTY D Ot K43. 2 INCISIONAL HERNIA WITHOUT OBSTRUCTION OR 12/07/2017 PACK DO KATTY D Ot Z01.812 ENCOUNTER FOR PREPROCEDURAL LABORATORY E 12/07/2017 PACK DOKATTY D Ot Z11. 2 ENCOUNTER FOR SCREENING FOR OTHER BACTER 12/07/2017 PACK DO KATTY D Ot R19. 7 DIARRHEA, UNSPECIFIED 12/10/2017 PACK DO KATTY D Ot K43. 2 INCISIONAL HERNIA WITHOUT OBSTRUCTION OR 12/10/2017 PACK DO KATTY D Ot Z01.812 ENCOUNTER FOR PREPROCEDURAL LABORATORY E 12/10/2017 PACK DO KATTY D Ot Z11. 2 ENCOUNTER FOR SCREENING FOR OTHER BACTER 12/10/2017 PACK DO KATTY D Ot K43. 2 INCISIONAL HERNIA WITHOUT OBSTRUCTION OR 12/10/2017 PACK DO KATTY D Ot Z01.812 ENCOUNTER FOR PREPROCEDURAL LABORATORY E 12/10/2017 PACK DO KATTY D Ot Z11. 2 ENCOUNTER FOR SCREENING FOR OTHER BACTER 12/13/2017 PATRICIA PARKER HEALTHCARE ACCOUNT MANAGER Ot J44.9 CHRONIC OBSTRUCTIVE PULMONARY DISEASE, U 12/13/2017 PATRICIA PARKER HEALTHCARE ACCOUNT MANAGER Ot J98.4 OTHER DISORDERS OF LUNG 12/13/2017 PATRICIA PARKER HEALTHCARE ACCOUNT MANAGER Ot K43.9 VENTRAL HERNIA WITHOUT OBSTRUCTION OR GA 12/13/2017 PATRICIA PARKER HEALTHCARE ACCOUNT MANAGER Ot R19.7 DIARRHEA, UNSPECIFIED 12/13/2017 PARKERPATRICIA APRN Ot R63.4 ABNORMAL WEIGHT LOSS 12/13/2017 PATRICIA PARKER APRN Ot Z90.49 ACQUIRED ABSENCE OF OTHER SPECIFIED PART 12/13/2017 PATRICIA PARKER APRN Ot J44.9 CHRONIC OBSTRUCTIVE PULMONARY DISEASE, U 12/13/2017 PATRICIA PARKER APRN Ot J98.4 OTHER DISORDERS OF LUNG 12/13/2017 PATRICIA PARKER APRN Ot K43.9 VENTRAL HERNIA WITHOUT OBSTRUCTION OR GA 12/13/2017 PATRICIA PARKER APRN Ot R19.7 DIARRHEA, UNSPECIFIED 12/13/2017 PATRICIA PARKER APRN Ot R63.4 ABNORMAL WEIGHT LOSS 12/13/2017 PATRICIA PARKER APRN Ot Z90.49 ACQUIRED ABSENCE OF OTHER SPECIFIED PART 12/13/2017 KATTY PACK DO Ot E03. 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 5 HYPERLIPIDEMIA, UNSPECIFIED 12/13/2017 KATTY PACK DO Ot G20 PARKINSON'S DISEASE 12/13/2017 KATTY PACK DO Ot G47. 33 OBSTRUCTIVE SLEEP APNEA (ADULT) (PEDIATR 12/13/2017 KATTY PACK DO Ot I10 ESSENTIAL (PRIMARY) HYPERTENSION 12/13/2017 KATTY PACK DO Ot J44. 9 CHRONIC OBSTRUCTIVE PULMONARY DISEASE, U 12/13/2017 KATTY APCK DO Ot J45.909 UNSPECIFIED ASTHMA, UNCOMPLICATED 12/13/2017 KATTY PACK DO Ot K21. 9 GASTRO-ESOPHAGEAL REFLUX DISEASE WITHOUT 12/13/2017 KATTY PACK DO Ot K43. 0 INCISIONAL HERNIA WITH OBSTRUCTION, WITH 12/13/2017 KATTY PACK DO Ot Z79. 4 PBX WIRE CHIEF (CURRENT) USE OF INSULIN 12/13/2017 KATTY PACK DO Ot Z79.899 OTHER SKILLED NURSING (CURRENT) DRUG THERAPY 12/13/2017 KATTY PACK DO Ot Z87.891 PERSONAL HISTORY OF NICOTINE DEPENDENCE 04/10/2018 PATRICIA PARKER APRN Ot R74.8 ABNORMAL LEVELS OF OTHER SERUM ENZYMES 04/10/2018 PATRICIA PARKER HEALTHCARE ACCOUNT MANAGER Ot Z90.49 ACQUIRED ABSENCE OF OTHER SPECIFIED PART 04/10/2018 PATRICIA PARKER HEALTHCARE ACCOUNT MANAGER Ot R74.8 ABNORMAL LEVELS OF OTHER SERUM ENZYMES 04/10/2018 PATRICIA PARKER HEALTHCARE ACCOUNT MANAGER Ot Z90.49 ACQUIRED ABSENCE OF OTHER SPECIFIED PART 04/24/2018 PATRICIA PARKER APRN Ot R74.8 ABNORMAL LEVELS OF OTHER SERUM ENZYMES 04/24/2018 PATRCIIA PARKER HEALTHCARE ACCOUNT MANAGER Ot Z90.49 ACQUIRED ABSENCE OF OTHER SPECIFIED PART 06/07/2018 PACK DO, KATTY D Ot R19. 7 DIARRHEA, UNSPECIFIED 06/07/2018 PACK DO, KATTY D Ot Z01.818 ENCOUNTER FOR OTHER PREPROCEDURAL EXAMIN 06/07/2018 PACK DO, KATTY D Ot R19. 7 DIARRHEA, UNSPECIFIED 06/07/2018 CHLOE GIBBS SUPERVISOR CHEMICAL Ot R22.1 LOCALIZED SWELLING, MASS AND LUMP, NECK 06/07/2018 PATRICIA PARKER HEALTHCARE ACCOUNT MANAGER Ot J44.9 CHRONIC OBSTRUCTIVE PULMONARY DISEASE, U 06/07/2018 PATRICIA PARKER HEALTHCARE ACCOUNT MANAGER Ot J98.4 OTHER DISORDERS OF LUNG 06/07/2018 PATRICIA PARKER HEALTHCARE ACCOUNT MANAGER Ot K43.9 VENTRAL HERNIA WITHOUT OBSTRUCTION OR GA 06/07/2018 PATRICIA PARKER HEALTHCARE ACCOUNT MANAGER Ot R19.7 DIARRHEA, UNSPECIFIED 06/07/2018 PATRICIA PARKER HEALTHCARE ACCOUNT MANAGER Ot R63.4 ABNORMAL WEIGHT LOSS 06/07/2018 PATRICIA PARKER HEALTHCARE ACCOUNT MANAGER Ot Z90.49 ACQUIRED ABSENCE OF OTHER SPECIFIED PART 06/07/2018 PATRICIA PARKER HEALTHCARE ACCOUNT MANAGER Ot R74.8 ABNORMAL LEVELS OF OTHER SERUM ENZYMES 06/07/2018 PATRICIA PARKER HEALTHCARE ACCOUNT MANAGER Ot Z90.49 ACQUIRED ABSENCE OF OTHER SPECIFIED PART 06/10/2018 PATRICIA PARKER HEALTHCARE ACCOUNT MANAGER Ot R10.819 ABDOMINAL TENDERNESS, UNSPECIFIED SITE 06/10/2018 PATRICIA PARKER HEALTHCARE ACCOUNT MANAGER Ot R10.84 GENERALIZED ABDOMINAL PAIN 06/10/2018 PATRICIA PARKER HEALTHCARE ACCOUNT MANAGER Ot R63.0 ANOREXIA 06/10/2018 PATRICIA PARKER HEALTHCARE ACCOUNT MANAGER Ot R91.8 OTHER NONSPECIFIC ABNORMAL FINDING OF MICHAEL 06/28/2018 PATRICIA PARKER HEALTHCARE ACCOUNT MANAGER Ot J43.9 EMPHYSEMA, UNSPECIFIED 06/28/2018 PATRICIA PARKER HEALTHCARE ACCOUNT MANAGER Ot R63.4 ABNORMAL WEIGHT LOSS 06/28/2018 PATRICIA PARKER HEALTHCARE ACCOUNT MANAGER Ot R91.8 OTHER NONSPECIFIC ABNORMAL FINDING OF MICHAEL 09/24/2018 PACK DO, KATTY D Ot R19. 7 DIARRHEA, UNSPECIFIED 09/24/2018 PACK DO, KATTY D Ot Z01.818 ENCOUNTER FOR OTHER PREPROCEDURAL EXAMIN 09/24/2018 PACK DO, KATTY D Ot R19. 7 DIARRHEA, UNSPECIFIED 09/24/2018 GIBBS CHLOE Pako SUPERVISOR CHEMICAL Ot R22.1 LOCALIZED SWELLING, MASS AND LUMP, NECK 09/24/2018 PATRICIA PARKER HEALTHCARE ACCOUNT MANAGER Ot J44.9 CHRONIC OBSTRUCTIVE PULMONARY DISEASE, U 09/24/2018 PATRICIA PARKER HEALTHCARE ACCOUNT MANAGER Ot J98.4 OTHER DISORDERS OF LUNG 09/24/2018 PATRICIA PARKER HEALTHCARE ACCOUNT MANAGER Ot K43.9 VENTRAL HERNIA WITHOUT OBSTRUCTION OR GA 09/24/2018 PATRICIA PARKER HEALTHCARE ACCOUNT MANAGER Ot R19.7 DIARRHEA, UNSPECIFIED 09/24/2018 PATRICIA PARKER HEALTHCARE ACCOUNT MANAGER Ot R63.4 ABNORMAL WEIGHT LOSS 09/24/2018 PATRICIA PARKER HEALTHCARE ACCOUNT MANAGER Ot Z90.49 ACQUIRED ABSENCE OF OTHER SPECIFIED PART 09/24/2018 PATRICIA PARKER HEALTHCARE ACCOUNT MANAGER Ot R74.8 ABNORMAL LEVELS OF OTHER SERUM ENZYMES 09/24/2018 PATRICIA PARKER HEALTHCARE ACCOUNT MANAGER Ot Z90.49 ACQUIRED ABSENCE OF OTHER SPECIFIED PART 09/24/2018 PATRICIA PARKER HEALTHCARE ACCOUNT MANAGER Ot J43.9 EMPHYSEMA, UNSPECIFIED 09/24/2018 PATRICIA PARKER HEALTHCARE ACCOUNT MANAGER Ot R63.4 ABNORMAL WEIGHT LOSS 09/24/2018 PATRICIA PARKER HEALTHCARE ACCOUNT MANAGER Ot R91.8 OTHER NONSPECIFIC ABNORMAL FINDING OF MICHAEL 09/24/2018 PATRICIA PARKER HEALTHCARE ACCOUNT MANAGER Ot R10.819 ABDOMINAL TENDERNESS, UNSPECIFIED SITE 09/24/2018 PATRICIA PARKER HEALTHCARE ACCOUNT MANAGER Ot R10.84 GENERALIZED ABDOMINAL PAIN 09/24/2018 PATRICIA PARKER HEALTHCARE ACCOUNT MANAGER Ot R63.0 ANOREXIA 09/24/2018 PATRICIA PARKER HEALTHCARE ACCOUNT MANAGER Ot R91.8 OTHER NONSPECIFIC ABNORMAL FINDING OF MICHAEL 09/24/2018 PATRICIA PARKER [facility] HEALTHCARE ACCOUNT MANAGER Ot J43.9 EMPHYSEMA, UNSPECIFIED 09/24/2018 PARKERSHAYLEE MckeonELE Melchor HEALTHCARE ACCOUNT MANAGER Ot R63.4 ABNORMAL WEIGHT LOSS 09/24/2018 PARKER PATRICIA [facility]chor HEALTHCARE ACCOUNT MANAGER Ot R91.8 OTHER NONSPECIFIC ABNORMAL FINDING OF MICHAEL 09/24/2018 PATRICIA PARKER [facility] HEALTHCARE ACCOUNT MANAGER Ot R10.819 ABDOMINAL TENDERNESS, UNSPECIFIED SITE 09/24/2018 PATRICIA PARKER HEALTHCARE ACCOUNT MANAGER Ot R10.84 GENERALIZED ABDOMINAL PAIN 09/24/2018 SHAYLEE PARKERELE [facility]chor HEALTHCARE ACCOUNT MANAGER Ot R63.0 ANOREXIA 09/24/2018 PARKERSHAYLEEPATRICIA Melchor HEALTHCARE ACCOUNT MANAGER Ot R91.8 OTHER NONSPECIFIC ABNORMAL FINDING OF MICHAEL Procedures Code Description [place] [address] ROUT INE VENIPUNCTURE 09/16/2012 22531 OXIMETRY 09/16/2012 46346 GLUC OSE FINGER STICK 09/16/2012 40936 CMP 09/16/2012 8583069 GF R CALC (RESULT ONLY) 09/16/2012 29446 BNP 09/17/2012 33742 A1C (IN-HOUSE) 10/24/2012 57215 OXIMETRY 03/20/2013 05583 ROUT INE VENIPUNCTURE 04/01/2013 53066 A1C (IN-HOUSE) 04/01/2013 11262 MICR O ALBUMIN-IN HOUSE 04/01/2013 54224 CMP 04/01/2013 9740372 GF R CALC (RESULT ONLY) 04/01/2013 84879 LIPI D PANEL 04/01/2013 72421 GLUC OSE FINGER STICK 04/15/2013 77292 ROUT INE VENIPUNCTURE 07/16/2013 ALETHEA CHAWLA 07/16/2013 79369 MICR O ALBUMIN-IN HOUSE 07/16/2013 73678 A1C (IN-HOUSE) 07/16/2013 05395 CMP 07/16/2013 5966716 GF R CALC (RESULT ONLY) 07/16/2013 G0008 FLU ADMINISTRATION (MEDICARE ONLY) 09/15/2013 54522 ROUT INE VENIPUNCTURE 10/23/2013 98081 UA W / CULTURE IF INDICATED 10/23/2013 35366 CBC 10/23/2013 95409 CMP 10/23/2013 4759339 GF R CALC (RESULT ONLY) 10/23/2013 74138 LIPASE 10/23/2013 09958 ROUT INE VENIPUNCTURE 01/06/2014 35652 A1C (IN-HOUSE) 01/06/2014 60615 MICR O ALBUMIN-IN HOUSE 01/06/20142003354 GF R CALC (RESULT ONLY) 01/06/2014 18284 CMP 01/06/2014 78199 LIPI D PANEL 01/06/2014 29183 TSH 01/06/2014 02077 ROUT INE VENIPUNCTURE 07/07/2014 FOOT EXAM PERFORMED 07/07/2014 86836 MICR O ALBUMIN-IN HOUSE 07/07/2014 24226 A1C (IN-HOUSE) 07/07/2014 53680 CMP 07/07/2014 68768 LIPI D PANEL 07/07/2014 27492 HEPA TITIS PROFILE 07/07/2014 IRGROUP IR ON GROUP (Iron,TIBC, Ferritin) 07/07/2014 FOOT EXAM PERFORMED 09/28/2014 86208 ROUT INE VENIPUNCTURE 10/12/2014 73751 MICR O ALBUMIN-IN HOUSE 10/12/2014 86979 A1C (IN-HOUSE) 10/12/20144061225 GF R CALC (RESULT ONLY) 10/12/2014 79657 CMP 10/12/2014 51.23 LAPA ROSCOPIC CHOLECYSTECTOMY 10/23/2014 Results Test Result Range TSH+Free T4 - 01/23/17 11:42 TSH 4.490 uIU/mL 0.450-4.500 T4,Free(Direct) 1.44 ng/dL 0.82-1.77 CBC With Differential/Platelet - 7 11:42 WBC 10.0 x10E3/uL 3.4-10.8 RBC 4.59 x10E6/uL 4.14-5.80 Hemoglobin 13.8 g/dL 12.6-17.7 Hematocrit 41.8 % 37.5-51.0 MCV 91 fL 79-97 MCH 30.1 pg 26.6-33.0 MCHC 33.0 g/dL 31.5-35.7 RDW 13.4 % 12.3-15.4 Platelets 523 x10E3/uL 150-379 Neutrophils 61 % Lymphs 30 % Monocytes 7 % Eos 1 % Basos 1 % Neutrophils (Absolute) 6.1 x10E3/uL 1.4- 7.0 Lymphs (Absolute) 3.0 x10E3/uL 0.7-3.1 Monocytes(Absolute) 0.7 x10E3/uL 0.1-0.9 Eos (Absolute) 0.1 x10E3/uL 0.0-0.4 Baso (Absolute) 0.1 x10E3/uL 0.0-0.2 Immature Granulocytes 0 % Immature Grans (Abs) 0.0 x10E3/uL 0.0-0. 1 Comp. Metabolic Panel (14) - 01/23/17 11 :42 Glucose, Serum 496 mg/dL 65-99 BUN 23 mg/dL 8-27 Creatinine, Serum 1.19 mg/dL 0.76-1.27 eGFR If NonAfricn Am 64 mL/min/1.73 >59 eGFR If Africn Am 74 mL/min/1.73 >59 BUN/Creatinine Ratio 19 10-22 Sodium, Serum 131 mmol/L 134-144 Potassium, Serum 5.6 mmol/L 3.5-5.2 Chloride, Serum 87 mmol/L 96-106 Carbon Dioxide, Total 21 mmol/L 18-29 Calcium, Serum 10.2 mg/dL 8.6-10.2 Protein, Total, Serum 8.3 g/dL 6.0-8.5 Albumin, Serum 4.5 g/dL 3.6-4.8 Globulin, Total 3.8 g/dL 1.5-4.5 A/G Ratio 1.2 1.2-2.2 Bilirubin, Total 0.3 mg/dL 0.0-1.2 Alkaline Phosphatase, S 189 IU/L 39-117 AST (SGOT) 19 IU/L 0-40 ALT (SGPT) 29 IU/L 0-44 Lipid Panel - 01/23/17 11:42 Cholesterol, Total 435 mg/dL 100-199 Triglycerides 1036 mg/dL 0-149 HDL Cholesterol 39 mg/dL >39 VLDL Cholesterol Dean Comment mg/dL 5-40 LDL Cholesterol Calc Comment mg/dL 0-99 Comprehensive metabolic panel - 04/10/17 21:40 Serum or plasma sodium measurement (moles/volume) 132 mmol/L 135-145 Serum or plasma potassium measurement (moles/volume) 4.4 mmol/L 3.6-5.0 Serum or plasma chloride measurement (moles/volume) 98 mmol/L 98-107 Carbon dioxide 19 mmol/L 21-32 Serum or plasma anion gap determination (moles/volume) 15 mmol/L 5-14 Serum or plasma urea nitrogen measurement (mass/volume ) 19 mg/dL 7-18 Serum or plasma creatinine measurement (mass/volume) 1.27 mg/dL 0.60-1.30 Serum or plasma urea nitrogen/creatinine mass ratio 15 NRG Serum or plasma creatinine measurement w ith calculation of estimated glomerular filtration rate 57 NRG Serum or plasma glucose measurement (mass/volume) 522 mg/dL 70-105 Serum or plasma calcium measurement (mass/volume) 9.5 mg/dL 8.5-10.1 Serum or plasma total bilirubin measurement (mass/volu me) 0.3 mg/dL 0.1-1.0 Serum or plasma alkaline phosphatase phi surement (enzymatic activity/volume) 142 U/L 40-136 Serum or plasma aspartate aminotransfera se measurement (enzymatic activity/volume) 15 U/L 5-34 Serum or plasma alanine aminotransferase measurement (enzymatic activity/volume) 25 U/L 0-55 Serum or plasma protein measurement (mass/volume) 7.9 g/dL 6.4-8.2 Serum or plasma albumin measurement (mass/volume) 3.8 g/dL 3.2-4.5 Complete blood count (CBC) with automate d white blood cell (WBC) differential - 04/10/17 21:40 Blood leukocytes automated count (number/volume) 14.3 10*3/uL 4.3-11.0 Blood erythrocytes automated count (number/volume) 4.12 10*6/uL 4.35-5.85 Venous blood hemoglobin measurement (mass/volume) 12.6 g/dL 13.3-17.7 Blood hematocrit (volume fraction) 36 % 40-54 Automated erythrocyte mean corpuscular volume 88 [ foz_us] 80-99 Automated erythrocyte mean corpuscular h emoglobin (mass per erythrocyte) 31 pg 25-34 Automated erythrocyte mean corpuscular h emoglobin concentration measurement (mass/volume) 35 g/dL 32-36 Automated erythrocyte distribution width ratio 12. 5 % 10.0- 14.5 Automated blood platelet count (count/volume) 405 10*3/uL 130-400 Automated blood platelet mean volume measurement 10.7 [foz_us] 7.4-10.4 Automated blood neutrophils/100 leukocytes 73 % 42-75 Automated blood lymphocytes/100 leukocytes 17 % 12-44 Blood monocytes/100 leukocytes 9 % 0-12 Automated blood eosinophils/100 leukocytes 1 % 0-10 Automated blood basophils/100 leukocytes 0 % 0-10 Blood neutrophils automated count (number/volume) 10.4 10*3 1.8-7.8 Blood lymphocytes automated count (number/volume) 2.5 10*3 1.0-4.0 Blood monocytes automated count (number/volume) 1. 4 10*3 0.0-1.0 Automated eosinophil count 0.1 10*3/uL 0 .0-0.3 Automated blood basophil count (count/volume) 0.0 10*3/uL 0.0-0.1 Blood manual differential performed dete ction - 04/10/17 21:40 Blood monocytes/100 leukocytes 3 % NRG Manual blood segmented neutrophils/100 leukocytes 72 % NRG Blood band neutrophils/100 leukocytes 2 % NRG Manual blood lymphocytes/100 leukocytes 23 % NRG Manual eosinophils/100 leukocytes in nose 0 % NRG Manual blood basophils/100 leukocytes 0 % NRG Blood erythrocyte morphology finding identification NORMAL NRG Complete urinalysis with reflex to cultu re - 04/10/17 21:49 Urine color determination YELLOW NRG Urine clarity determination SLIGHTLY CLOUDY NRG Urine pH measurement by test strip 5 5-9 Specific gravity of urine by test strip 1.010 1.016-1.022 Urine protein assay by test strip, semi-quantitative 3+ NEGATIVE Urine glucose detection by automated test strip 4+ NEGATIVE Erythrocytes detection in urine sediment by light micr oscopy 5+ NEGATIVE Urine ketones detection by automated test strip NE GATIVE NEGATIVE Urine nitrite detection by test strip POSITIVE NEGATIVE Urine total bilirubin detection by test strip NEGA TIVE NEGATIVE Urine urobilinogen measurement by automated test strip (mass/volume) NORMAL NORMAL Urine leukocyte esterase detection by dipstick 3+ NEGATIVE Automated urine sediment erythrocyte cou nt by microscopy (number/high power field) TNTC NRG Automated urine sediment leukocyte count by microscopy (number/high power field) [HPF] NRG Bacteria detection in urine sediment by light microsco py TRACE NRG Crystals detection in urine sediment by light microsco py NONE NRG Casts detection in urine sediment by light microscopy NONE NRG Mucus detection in urine sediment by light microscopy NEGATIVE NRG Complete urinalysis with reflex to culture YES NRG Bacterial urine culture - 04/10/17 21:49 Bacterial urine culture [id number] NR COLONY COUNT <10,000 NRG FTX;REPORTABLE SENSITIVITY REPORTED 04/11/17 14:40 NR Bacterial susceptibility panel - 7 21:49 Gentamicin susceptibility test by minimum inhibitory c oncentration <= NRG Trimethoprim/sulfamethoxazole susceptibi lity test by minimum inhibitoryconcentration <= NRG Ampicillin susceptibility test by minimum inhibitory c oncentration <= NRG Tobramycin susceptibility test by minimum inhibitory c oncentration <= NRG Cefazolin susceptibility test by minimum inhibitory co ncentration <= NRG Ceftriaxone susceptibility test by minimum inhibitory concentration <= NRG Ampicillin/sulbactam susceptibility test by minimum inhibitory concentration <= NRG Piperacillin/tazobactam susceptibility t est by minimum inhibitory concentration <= NRG Ciprofloxacin susceptibility test by minimum inhibitor y concentration <= NRG Meropenem susceptibility test by minimum inhibitory co ncentration <= NRG Nitrofurantoin susceptibility test by mi nimum inhibitory concentration <= NRG Aztreonam susceptibility test by minimum inhibitory co ncentration <= NRG Extended spectrum beta lactamase (ESBL) producing bacteria susceptibility test by minimum inhibitory concentration - NRG Capillary blood glucose measurement by g lucometer (mass/volume) - 04/10/17 22:47 Capillary blood glucose measurement by glucometer (mas s/volume) 294 mg/dL 70-110 CBC With Differential/Platelet - 7 13:14 WBC 9.4 x10E3/uL 3.4-10.8 RBC 4.45 x10E6/uL 4.14-5.80 Hemoglobin 13.7 g/dL 12.6-17.7 Hematocrit 39.9 % 37.5-51.0 MCV 90 fL 79-97 MCH 30.8 pg 26.6-33.0 MCHC 34.3 g/dL 31.5-35.7 RDW 13.5 % 12.3-15.4 Platelets 502 x10E3/uL 150-379 Neutrophils 40 % Lymphs 51 % Monocytes 6 % Eos 2 % Basos 1 % Neutrophils (Absolute) 3.8 x10E3/uL 1.4- 7.0 Lymphs (Absolute) 4.8 x10E3/uL 0.7-3.1 Monocytes(Absolute) 0.6 x10E3/uL 0.1-0.9 Eos (Absolute) 0.2 x10E3/uL 0.0-0.4 Baso (Absolute) 0.1 x10E3/uL 0.0-0.2 Immature Granulocytes 0 % Immature Grans (Abs) 0.0 x10E3/uL 0.0-0. 1 Comp. Metabolic Panel (14) - 06/14/17 13 :14 Glucose, Serum 325 mg/dL 65-99 BUN 16 mg/dL 8-27 Creatinine, Serum 1.09 mg/dL 0.76-1.27 eGFR If NonAfricn Am 71 mL/min/1.73 >59 eGFR If Africn Am 82 mL/min/1.73 >59 BUN/Creatinine Ratio 15 10-24 Sodium, Serum 131 mmol/L 134-144 Potassium, Serum 5.2 mmol/L 3.5-5.2 Chloride, Serum 88 mmol/L 96-106 Carbon Dioxide, Total 20 mmol/L 18-29 Calcium, Serum 10.0 mg/dL 8.6-10.2 Protein, Total, Serum 8.1 g/dL 6.0-8.5 Albumin, Serum 4.6 g/dL 3.6-4.8 Globulin, Total 3.5 g/dL 1.5-4.5 A/G Ratio 1.3 1.2-2.2 Bilirubin, Total 0.4 mg/dL 0.0-1.2 Alkaline Phosphatase, S 170 IU/L 39-117 AST (SGOT) 19 IU/L 0-40 ALT (SGPT) 25 IU/L 0-44 TSH - 06/14/17 13:14 TSH 6.400 uIU/mL 0.450-4.500 Microalb/Creat Ratio, Randm Ur - 7 15:19 Creatinine, Urine 35.5 mg/dL Not Estab. Microalbumin, Urine 41.2 ug/mL Not Estab . Microalb/Creat Ratio 116.1 mg/g creat 0. 0-30.0 CBC With Differential/Platelet - 7 15:19 WBC 9.0 x10E3/uL 3.4-10.8 RBC 4.46 x10E6/uL 4.14-5.80 Hemoglobin 13.0 g/dL 12.6-17.7 Hematocrit 40.4 % 37.5-51.0 MCV 91 fL 79-97 MCH 29.1 pg 26.6-33.0 MCHC 32.2 g/dL 31.5-35.7 RDW 13.8 % 12.3-15.4 Platelets 427 x10E3/uL 150-379 Neutrophils 46 % Not Estab. Lymphs 44 % Not Estab. Monocytes 9 % Not Estab. Eos 1 % Not Estab. Basos 0 % Not Estab. Neutrophils (Absolute) 4.2 x10E3/uL 1.4- 7.0 Lymphs (Absolute) 3.9 x10E3/uL 0.7-3.1 Monocytes(Absolute) 0.8 x10E3/uL 0.1-0.9 Eos (Absolute) 0.1 x10E3/uL 0.0-0.4 Baso (Absolute) 0.0 x10E3/uL 0.0-0.2 Immature Granulocytes 0 % Not Esta b. Immature Grans (Abs) 0.0 x10E3/uL 0.0-0. 1 Comp. Metabolic Panel (14) - 09/06/17 15 :19 Glucose, Serum 419 mg/dL 65-99 BUN 21 mg/dL 8-27 Creatinine, Serum 0.89 mg/dL 0.76-1.27 eGFR If NonAfricn Am 89 mL/min/1.73 >59 eGFR If Africn Am 103 mL/min/1.73 >5 9 BUN/Creatinine Ratio 24 10-24 Sodium, Serum 130 mmol/L 134-144 Potassium, Serum 4.8 mmol/L 3.5-5.2 Chloride, Serum 89 mmol/L 96-106 Carbon Dioxide, Total 24 mmol/L 18-29 Calcium, Serum 9.5 mg/dL 8.6-10.2 Protein, Total, Serum 7.2 g/dL 6.0-8.5 Albumin, Serum 3.9 g/dL 3.6-4.8 Globulin, Total 3.3 g/dL 1.5-4.5 A/G Ratio 1.2 1.2-2.2 Bilirubin, Total 0.3 mg/dL 0.0-1.2 Alkaline Phosphatase, S 202 IU/L 39-117 AST (SGOT) 22 IU/L 0-40 ALT (SGPT) 44 IU/L 0-44 Thyroid Solomons Profile - 09/06/17 15:19 TSH 5.240 uIU/mL 0.450-4.500 Thyroxine (T4) Free, Direct, S - 7 15:19 T4,Free (Direct) 1.39 ng/dL 0.82-1.77 Thyroid Peroxidase (TPO) Ab - 09/06/17 1 5:19 Thyroid Peroxidase (TPO) Ab 15 IU/mL 0- 34 Interpretive Comment Comment MICROALBUMIN/CREATININE RATIO, URINE - 1 15:19 Creatinine, Urine 35.5 mg/dL Not Estab. Microalbumin, Urine 41.2 ug/mL Not Estab . Microalb/Creat Ratio 116.1 mg/g creat 0. 0-30.0 THYROID ANALYZER - 09/06/17 15:19 TSH 5.240 uIU/mL 0.450-4.500 T4,Free (Direct) 1.39 ng/dL 0.82-1.77 Thyroid Peroxidase (TPO) Ab 15 IU/mL 0- 34 Interpretive Comment NRG ESR/SED RATE - 11/07/17 13:35 SED RATE BY MODIFIED WESTERGREN 117 mm/h < OR = 20 PSA - 11/07/17 13:35 PSA, TOTAL <0.1 ng/mL < OR = 4.0 THYROID ANALYZER - 11/07/17 13:35 TSH 6.17 mIU/L 0.40-4.50 INTERPRETATION - 11/07/17 13:35 T4, FREE 1.5 ng/dL 0.8-1.8 INTERPRETATION - 11/07/17 13:35 INTERPRETATION NRG THYROID PEROXIDASE ANTIBODIES - 11/07/17 13:35 THYROID PEROXIDASE ANTIBODIES <1 IU/mL <9 Complete blood count (CBC) with automate d white blood cell (WBC) differential - 12/07/17 09:15 Blood leukocytes automated count (number/volume) 7.5 10*3/uL 4.3-11.0 Blood erythrocytes automated count (number/volume) 4.29 10*6/uL 4.35-5.85 Venous blood hemoglobin measurement (mass/volume) 13.1 g/dL 13.3-17.7 Blood hematocrit (volume fraction) 37 % 40-54 Automated erythrocyte mean corpuscular volume 86 [ foz_us] 80-99 Automated erythrocyte mean corpuscular h emoglobin (mass per erythrocyte) 31 pg 25-34 Automated erythrocyte mean corpuscular h emoglobin concentration measurement (mass/volume) 36 g/dL 32-36 Automated erythrocyte distribution width ratio 12. 5 % 10.0- 14.5 Automated blood platelet count (count/volume) 436 10*3/uL 130-400 Automated blood platelet mean volume measurement 10.8 [foz_us] 7.4-10.4 Automated blood neutrophils/100 leukocytes 53 % 42-75 Automated blood lymphocytes/100 leukocytes 38 % 12-44 Blood monocytes/100 leukocytes 8 % 0-12 Automated blood eosinophils/100 leukocytes 0 % 0-10 Automated blood basophils/100 leukocytes 1 % 0-10 Blood neutrophils automated count (number/volume) 4.0 10*3 1.8-7.8 Blood lymphocytes automated count (number/volume) 2.8 10*3 1.0-4.0 Blood monocytes automated count (number/volume) 0. 6 10*3 0.0-1.0 Automated eosinophil count 0.0 10*3/uL 0 .0-0.3 Automated blood basophil count (count/volume) 0.1 10*3/uL 0.0-0.1 Whole blood basic metabolic panel - 11/13 04/29 09:15 Serum or plasma sodium measurement (moles/volume) 130 mmol/L 135-145 Serum or plasma potassium measurement (moles/volume) 4.4 mmol/L 3.6-5.0 Serum or plasma chloride measurement (moles/volume) 95 mmol/L 98-107 Carbon dioxide 21 mmol/L 21-32 Serum or plasma anion gap determination (moles/volume) 14 mmol/L 5-14 Serum or plasma urea nitrogen measurement (mass/volume ) 26 mg/dL 7-18 Serum or plasma creatinine measurement (mass/volume) 1.15 mg/dL 0.60-1.30 Serum or plasma urea nitrogen/creatinine mass ratio 23 NRG Serum or plasma creatinine measurement w ith calculation of estimated glomerular filtration rate > NRG Serum or plasma glucose measurement (mass/volume) 509 mg/dL 70-105 Serum or plasma calcium measurement (mass/volume) 10.1 mg/dL 8.5-10.1 Methicillin resistant Staphylococcus aur eus (MRSA) screening culture - 12/07/17 09:15 Methicillin resistant Staphylococcus aureus (MRSA) scr eening culture NEG NRG Capillary blood glucose measurement by g lucometer (mass/volume) - 12/13/17 07:22 Capillary blood glucose measurement by glucometer (mas s/volume) 114 mg/dL 70-110 Capillary blood glucose measurement by g lucometer (mass/volume) - 12/13/17 11:17 Capillary blood glucose measurement by glucometer (mas s/volume) 124 mg/dL 70-110 INTERPRETATION - 03/28/18 08:47 INTERPRETATION NRG THYROID PEROXIDASE ANTIBODIES - 03/28/18 08:47 THYROID PEROXIDASE ANTIBODIES <1 IU/mL <9 CULTURE, URINE - 04/03/18 08:12 CULTURE, URINE, ROUTINE SEE NOTE NRG TSH - 05/07/18 09:52 TSH 7.60 mIU/L 0.40-4.50 MATTHEW ANALYZER - 05/09/18 17:40 MATTHEW SCREEN, IFA NEGATIVE NEGATIVE CBC - 05/20/18 10:52 WHITE BLOOD CELL COUNT 8.9 Thousand/uL 3 .8-10.8 RED BLOOD CELL COUNT 3.98 Million/uL 4.2 0-5.80 HEMOGLOBIN 12.0 g/dL 13.2-17.1 HEMATOCRIT 35.7 % 38.5-50.0 MCV 89.7 fL 80.0-100.0 MCH 30.2 pg 27.0-33.0 MCHC 33.6 g/dL 32.0-36.0 RDW 13.4 % 11.0-15.0 PLATELET COUNT 399 Thousand/uL 140-400 MPV 10.2 fL 7.5-12.5 ABSOLUTE NEUTROPHILS 4948 cells/uL 1500- 7800 ABSOLUTE LYMPHOCYTES 3124 cells/uL 850-3 900 ABSOLUTE MONOCYTES 596 cells/uL 200-950 ABSOLUTE EOSINOPHILS 142 cells/uL 15-500 ABSOLUTE BASOPHILS 89 cells/uL 0-200 NEUTROPHILS 55.6 % NRG LYMPHOCYTES 35.1 % NRG MONOCYTES 6.7 % NRG EOSINOPHILS 1.6 % NRG BASOPHILS 1.0 % NRG TSH - 06/25/18 11:01 TSH 4.73 mIU/L 0.40-4.50 MICROALBUMIN/CREATININE RATIO, URINE - 0 07/09/18 12:17 CREATININE, RANDOM URINE 56 mg/dL 20-37 0 MICROALBUMIN 4.1 mg/dL See Note: MICROALBUMIN/CREATININE RATIO, RANDOM URINE 73 mcg /mg creat <30 CMP - 01/17/19 11:22 GLUCOSE 332 mg/dL 65-99 UREA NITROGEN (BUN) 21 mg/dL 7-25 CREATININE 1.00 mg/dL 0.70-1.25 eGFR NON-AFR. ITALIAN 78 mL/min/1.73m2 > OR = 60 eGFR 90 mL/min/1.73m2 > OR = 60 BUN/CREATININE RATIO NOT APPLICABLE (calc) 6-22 SODIUM 133 mmol/L 135-146 POTASSIUM 4.8 mmol/L 3.5-5.3 CHLORIDE 97 mmol/L 98-110 CARBON DIOXIDE 27 mmol/L 20-32 CALCIUM 9.4 mg/dL 8.6-10.3 PROTEIN, TOTAL 7.6 g/dL 6.1-8.1 ALBUMIN 4.1 g/dL 3.6-5.1 GLOBULIN 3.5 g/dL (calc) 1.9-3.7 ALBUMIN/GLOBULIN RATIO 1.2 (calc) 1.0-2. 5 BILIRUBIN, TOTAL 0.4 mg/dL 0.2-1.2 ALKALINE PHOSPHATASE 136 U/L 40-115 AST 18 U/L 10-35 ALT 23 U/L 9-46 TSH - 01/17/19 11:22 TSH 4.57 mIU/L 0.40-4.50 - PANEL (PROFILE 1) - 07/09/19 08 :53 Prescribed Drug 1 Hydrocodone NRG Creatinine 46.3 mg/dL > or = 20.0 pH 5.32 4.5 - 9.0 Oxidant NEGATIVE mcg/mL <200 Amphetamines NEGATIVE ng/mL <500 medMATCH Amphetamines CONSISTENT NRG Benzodiazepines NEGATIVE ng/mL <100 medMATCH Benzodiazepines CONSISTENT NRG Marijuana Metabolite NEGATIVE ng/mL <20 medMATCH Marijuana Metab CONSISTENT NRG Cocaine Metabolite NEGATIVE ng/mL <150 medMATCH Cocaine Metab CONSISTENT NRG Opiates POSITIVE ng/mL <100 Oxycodone NEGATIVE ng/mL <100 medMATCH Oxycodone CONSISTENT NRG COMMENT NRG Codeine NEGATIVE ng/mL <50 medMATCH Codeine CONSISTENT NRG Hydrocodone 253 ng/mL <50 medMATCH Hydrocodone CONSISTENT NRG Hydromorphone NEGATIVE ng/mL <50 medMATCH Hydromorphone CONSISTENT NRG Morphine NEGATIVE ng/mL <50 medMATCH Morphine CONSISTENT NRG Norhydrocodone 195 ng/mL <50 medMATCH Norhydrocodone CONSISTENT NRG Barbiturates NEGATIVE ng/mL <300 medMATCH Barbiturates CONSISTENT NRG Methadone Metabolite NEGATIVE ng/mL <100 medMATCH Methadone Metab CONSISTENT NRG Phencyclidine NEGATIVE ng/mL <25 medMATCH Phencyclidine CONSISTENT NRG LIPID PANEL - 01/20/20 14:30 CHOLESTEROL, TOTAL 365 mg/dL <200 HDL CHOLESTEROL 46 mg/dL > OR = 40 TRIGLYCERIDES 803 mg/dL <150 LDL-CHOLESTEROL mg/dL (calc) NRG CHOL/HDLC RATIO 7.9 (calc) <5.0 NON HDL CHOLESTEROL 319 mg/dL (calc) <13 0 CMP - 01/20/20 14:30 GLUCOSE 406 mg/dL 65-99 UREA NITROGEN (BUN) 33 mg/dL 7-25 CREATININE 1.10 mg/dL 0.70-1.25 eGFR NON-AFR. ITALIAN 69 mL/min/1.73m2 > OR = 60 eGFR 80 mL/min/1.73m2 > OR = 60 BUN/CREATININE RATIO 30 (calc) 6-22 SODIUM 132 mmol/L 135-146 POTASSIUM 6.0 mmol/L 3.5-5.3 CHLORIDE 96 mmol/L 98-110 CARBON DIOXIDE 26 mmol/L 20-32 CALCIUM 9.9 mg/dL 8.6-10.3 PROTEIN, TOTAL 7.8 g/dL 6.1-8.1 ALBUMIN 4.2 g/dL 3.6-5.1 GLOBULIN 3.6 g/dL (calc) 1.9-3.7 ALBUMIN/GLOBULIN RATIO 1.2 (calc) 1.0-2. 5 BILIRUBIN, TOTAL 0.3 mg/dL 0.2-1.2 ALKALINE PHOSPHATASE 167 U/L 35-144 AST 14 U/L 10-35 ALT 23 U/L 9-46 TSH - 01/20/20 14:30 TSH 3.49 mIU/L 0.40-4.50 Encounters ACCT No. Visit Date/Time Discharge Status Pt. Type Provider Facility Loc./Unit Complaint [id number] 01/24/2017 09:09:00 Document Registration [id number] 09/26/2018 11:00:00 018 23:59:59 CLS Preadmit Eliza ALDANA MD [facility] CARD SYNCOPE [id number] 09/18/2018 14:00:00 018 23:59:59 CLS Preadmit JOVAN BEST, Eliza MCCOY [facility] CARD SYNCOPE [id number] 08/13/2018 13:35:00 018 23:59:59 CLS Preadmit JOVAN BEST, Eliza NADINE [facility] CARD SYNCOPE [id number] 06/10/2018 10:30:00 018 23:59:59 CLS Preadmit JOVAN BEST Eliza NADINE [facility] CARD SYNCOPE [id number] 06/07/2018 15:56:00 018 23:59:59 CLS Outpatient PATRICIA PARKER APRN [facility] RAD GENERALIZED ABD OMINAL PAIN [id number] 06/04/2018 10:45:00 018 23:59:59 CLS Preadmit JOVAN BEST, Eliza MCCOY [facility] CARD DYSPNEA [id number] 06/04/2018 10:39:00 018 23:59:59 CLS Preadmit JOVAN BEST Eliza RODNADINE [facility] CARD SYNCOPE [id number] 05/28/2018 14:59:00 018 23:59:59 CLS Outpatient PATRICIA PARKER APRN [facility] RAD NODULAR RADIOLO GIC DENISTY [id number] 04/09/2018 06:34:00 018 23:59:59 CLS Outpatient PATRICIA PARKER APRN [facility] RAD ELEVATED LIVER ENZYMES [id number] 12/13/2017 07:00:00 018 13:13:00 DIS Outpatient KATTY PACK DO [facility] SDC INCISIONAL HERNIA [id number] 12/07/2017 08:49:00 018 10:35:00 DIS Outpatient KATTY PACK DO [facility] PREOP INCISIONAL HERNIA [id number] 11/19/2017 15:12:00 018 23:59:59 CLS Outpatient PATRICIA PARKER APRN [facility] RAD WEIGHT LOSS [id number] 06/20/2017 12:50:00 017 23:59:59 CLS Outpatient GIBBS CHLOEASHWIN ROBERTS [facility] RAD R22.1 NECK MASS [id number] 04/10/2017 21:34:00 017 22:56:00 DIS Emergency SADE RODAS APRN [facility] ER URINARY INCONTINENCE [id number] 01/24/2017 00:09:00 017 23:59:59 CLS Preadmit PACK KATTY LOPEZ [facility] LAB DIARRHEA [id number] 10/26/2016 10:23:00 017 00:01:00 DIS Outpatient KATTY PACK DO [facility] LAB DIARRHEA [id number] 10/26/2016 05:41:00 016 23:59:59 CLS Outpatient KATTY PACK DO [facility] PREOP DIARRHEA [id number] 10/23/2014 17:28:00 014 18:00:00 DIS Inpatient KERRI BEST, AGUSTIN Marmolejo [facility] SURGICAL ACUTE CHOLECYSTITIS,SEP TIC SHOCK [id number] 08/14/2014 13:52:00 014 18:06:00 DIS Emergency CHARLES JI MD [facility] ER CHEST/ABDOMINAL/BACK PA IN [id number] 03/22/2013 09:47:00 013 14:02:00 DIS Emergency KIERRA TALBOT MD [facility] ER WHEEZING COUGH CONGESTION [id number] 09/24/2018 09:01:00 Document Registration [id number] 08/19/2018 09:19:00 Document Registration [id number] 08/19/2018 09:18:00 Document Registration [id number] 09/15/2011 09:17:00 Document Registration [id number] 05/22/2011 21:18:00 Document Registration [id number] 01/14/2015 09:52:00 01/14/2015 23:59: 59 CLS Outpatient BOBBY DOLAURA Anthony [id number] 10/19/2014 17:43:00 10/19/2014 23:59: 59 CLS Outpatient BOBBY DOLAURA Anthony [id number] 10/12/2014 11:06:00 10/12/2014 23:59: 59 CLS Outpatient SINGH DELVIN FLORA Kay [id number] 09/28/2014 13:13:00 09/28/2014 23:59: 59 CLS Outpatient BOBBY DOLAURA Anthony [id number] 07/07/2014 08:44:00 07/07/2014 23:59: 59 CLS Outpatient BOBBY DOLAURA Anthony [id number] 07/07/2014 08:44:00 07/07/2014 23:59: 59 CLS Outpatient BOBBY DO, LAURA Anthony [id number] 03/13/2014 10:53:00 03/13/2014 23:59: 59 CLS Outpatient BOBBY DOLAURA Anthony [id number] 02/03/2014 07:53:00 02/03/2014 23:59: 59 CLS Outpatient BOBBY DOLAURA Anthony [id number] 01/06/2014 07:56:00 01/06/2014 23:59: 59 CLS Outpatient BOBBY DOLAURA Anthony [id number] 10/23/2013 08:54:00 10/23/2013 23:59: 59 CLS Outpatient STEVEN CLINE APRN [id number] 10/23/2013 08:54:00 10/23/2013 23:59: 59 CLS Outpatient BOBBY DOLAURA Anthony [id number] 09/15/2013 10:17:00 09/15/2013 23:59: 59 CLS Outpatient BOBBY DOCHANOPako Cruz [id number] 07/16/2013 08:51:00 07/16/2013 23:59: 59 CLS Outpatient BOBBY DOLAURA Anthony [id number] 04/01/2013 07:39:00 04/01/2013 23:59: 59 CLS Outpatient BOBBY DO LAURA Cruz [id number] 01/14/2013 08:52:00 01/14/2013 23:59: 59 CLS Outpatient BOBBY DO, LAURA K [id number] 10/24/2012 07:49:00 10/24/2012 23:59: 59 CLS Outpatient [id number] 10/24/2012 07:49:00 10/24/2012 23:59: 59 CLS Outpatient BOBBY [place], [place]URA K [id number] 09/16/2012 09:09:00 09/16/2012 23:59:5 9 CLS Outpatient LAURA BOBBY DO [id number] 07/16/2013 08:51:00 Document Registration [id number] 04/15/2013 08:08:00 Document Registration [id number] 04/15/2013 08:08:00 Document Registration [id number] 04/01/2013 07:39:00 Document Registration [id number] 03/20/2013 13:26:00 Document Registration [id number] 03/20/2013 13:26:00 Document Registration [id number] 09/07/2017 11:08:00 Document Registration [id number] 09/11/2017 14:09:00 Document Registration [id number] 06/15/2017 08:08:00 Document Registration [id number] 05/27/2020 16:40:00 05/27/2020 23:59:5 9 CLS Outpatient REINALDO HASSAN MD [facility] [id number] 01/20/2020 14:20:00 Document Registration [id number] 07/09/2019 08:40:00 Document Registration [id number] 01/17/2019 10:40:00 Document Registration [id number] 07/09/2018 11:00:00 Document Registration [id number] 06/25/2018 09:40:00 Document Registration [id number] 05/20/2018 09:40:00 Document Registration [id number] 05/09/2018 16:40:00 Document Registration [id number] 05/07/2018 09:20:00 Document Registration [id number] 04/03/2018 08:00:00 Document Registration [id number] 03/28/2018 08:20:00 Document Registration [id number] 11/07/2017 12:20:00 Document Registration [id number] 09/06/2017 14:00:00 Document Registration
[2020-06-13 16:51] LABS: CREATININE SERUM 1.22 MG/DL (0.60-1.30)
--- NOTE | 2020-06-13 16:57 | Diagnostic Imaging Report ---
INDICATION: Vomiting. COMPARISON: Prior examination from 10/24/2014. FINDINGS: The heart size is normal. Lungs are clear. There is no pleural effusion or pneumothorax. Bowel gas pattern is nonspecific. There is no free air. There are surgical clips in the right upper quadrant. There are no abnormal bowel calcifications. IMPRESSION: 1. No acute cardiopulmonary abnormality. 2. Nonspecific bowel gas pattern. Dictated by: Dictated on workstation # [id number]
[2020-06-13 17:14] LABS: BAND NEUTROPHILS 0 %; BASOPHILS % (MANUAL) 0 %; EOSINOPHILS % (MANUAL) 0 %; LYMPHOCYTES % (MANUAL) 7 %; MONOCYTES % (MANUAL) 3 %; NEUTROPHILS % (MANUAL) 90 %; RBC MORPH NORMAL
[2020-06-13] MEDS ORDERED: ACETAMINOPHEN 500 MG TAB (TYLENOL) PO STA (17:28)
[2020-06-13 17:35] LABS: BILIRUBIN,URINE NEGATIVE (NEGATIVE); CLARITY,URINE CLOUDY; COLOR,URINE YELLOW; GLUCOSE, URINE (UA) NEGATIVE (NEGATIVE); KETONES,URINE NEGATIVE (NEGATIVE); LEUKOCYTE ESTERASE ,URINE 2+ (NEGATIVE); NITRITE,URINE NEGATIVE (NEGATIVE); PH,URINE 5.5 (5-9); PROTEIN,URINE 2+ (NEGATIVE)
[2020-06-13 17:46] LABS: BACTERIA,URINE LARGE /HPF; RBC,URINE RARE /HPF; WBC,URINE TNTC /HPF
[2020-06-13] MEDS ORDERED: ONDA4TAB11 PO (17:52)
[2020-06-13] MEDS ORDERED: NITR100C PO (17:54)
[2020-06-13 17:58] VITALS: BP 142/84
== END 2020-06-13 17:58 | disposition home or self-care (01) ==
LOC: EDUNIT# 15:42 → ER 15:44
DX: R11.2 Nausea with vomiting, unspecified (principal); R86.0 Abnormal level of enzymes in specimens from male genital organs; N30.90 Cystitis, unspecified without hematuria; J44.9 Chronic obstructive pulmonary disease, unspecified; G47.30 Sleep apnea, unspecified; E78.00 Pure hypercholesterolemia, unspecified; G20 Parkinson's disease; E11.40 Type 2 diabetes mellitus with diabetic neuropathy, unspecified; K21.9 Gastro-esophageal reflux disease without esophagitis; K58.2 Mixed irritable bowel syndrome; M19.90 Unspecified osteoarthritis, unspecified site; M54.9 Dorsalgia, unspecified; F41.9 Anxiety disorder, unspecified; F32.9 Major depressive disorder, single episode, unspecified; Z88.8 Allergy status to other drugs, medicaments and biological substances; Z79.4 Long term (current) use of insulin; Z87.891 Personal history of nicotine dependence; Z87.01 Personal history of pneumonia (recurrent); Z79.899 Other long term (current) drug therapy
CPT/HCPCS: 36415; 74022; 80053; 81000; 83690; 85007; 85027; 87077; 87088; 87186

== ENCOUNTER → 2021-03-24 | Outpatient (CLI) | payer MEDICARE ==
[~2021-03-24] VITALS: Ht 180.3 cm; Wt 75.8 kg
[~2021-03-24] MED LIST changes: -LISI-552 PO; +LISI20TA26 PO; +NITR100C PO; +ONDA4TAB11 PO
== END ==
LOC: PREOP 05:32
PROVIDERS: ATTEND Surgery
DX: Z01.818 Encounter for other preprocedural examination (principal); Z12.11 Encounter for screening for malignant neoplasm of colon

== ENCOUNTER 2021-03-30 10:51 | Day surgery (SDC) | payer MEDICARE ==
[~2021-03-30] VITALS: Ht 180.3 cm; Wt 75.8 kg
[2021-03-30] MEDS ORDERED: LACTATED RINGERS 1,000 ML IV ONE (10:56)
[2021-03-30] MEDS ORDERED: LACTATED RINGERS 1,000 ML IV STA (11:05)
[2021-03-30] MEDS ORDERED: LIDOCAINE JELLY 2% 6 ML SYRINGE MM PRN (11:15)
[2021-03-30 11:20] VITALS: BP 128/79
--- NOTE | 2021-03-30 11:21 | Progress Note-Pre Operative ---
Pre-Operative Progress Note H&P Reviewed The H&P was reviewed, patient examined and no changes noted. Date Seen by Provider: March 30, 2021 Time Seen by Provider: 11:00 Date H&P Reviewed: March 30, 2021 Time H&P Reviewed: 11:00 Pre-Operative Diagnosis: screening JOHNATHAN Pavon MD March 30, 2021 11:21
--- NOTE | 2021-03-30 11:22 | Discharge Inst-Surgical ---
D/C Lap Instructions-WENDY Follow Up Appt in 2 weeks Activity as tolerated High Fiber Diet 25g or more per day Avoid Alcohol, Caffeine, Spicy Pisek and Acid foods. Drink 64 fluid oz or more of fluids per day. Symptoms to Report: Fever over 101 degree F, Nausea/Vomiting If any problems/questions: Contact your physician or go to Emergency Room JOHNATHAN NGUYEN MD March 30, 2021 11:22
[2021-03-30] MEDS ORDERED: ONDANSETRON 4 MG/2 ML (SDV) Z0FRAN IVP PRN (11:30)
[2021-03-30] MEDS ORDERED: morphine INJ 10 MG/ML 1ML (SYR OR VIAL) IVP PRN ×2 (11:30)
[2021-03-30] MEDS ORDERED: HYDROcodone/APAP 5 MG/325 MG (LORTAB) TAB PO PRN (11:30)
[2021-03-30] MEDS ORDERED: ACETAMINOPHEN 325 MG TABLET PO PRN (11:30)
[2021-03-30] MEDS ORDERED: PROPOFOL INJECTION 50 ML IV ONE (12:20)
[2021-03-30] MEDS ORDERED: LIDOCAINE JELLY 2% 6 ML SYRINGE ONE (12:23)
[2021-03-30] MEDS ORDERED: proPOfol 200 MG/20 ML (DIPRIVAN) VIAL IV ONE ×2 (12:46→13:07)
[2021-03-30 13:25] VITALS: BP 138/61
[2021-03-30 13:30] VITALS: BP 150/67
[2021-03-30 13:35] VITALS: BP 128/79
--- NOTE | 2021-03-30 13:35 | Progress Note-Post Operative ---
Post-Operative Progess Note Surgeon (s)/Manager [employer] (s) Surgeon JOHNATHAN NGUYEN MD Manager [employer]: none Pre-Operative Diagnosis screening colo Post-Operative Diagnosis mild chronic stage 2 ext and int hemorrhoids. Procedure & Operative Findings Date of Procedure 03/30/21 Procedure Performed/Findings colonoscopy. Anesthesia Type mac Estimated Blood Loss Estimated blood loss (mL): minimal Specimens/Packing Specimens Removed none JOHNATHAN NGUYEN MD March 30, 2021 13:35
[2021-03-30 13:55] VITALS: BP 155/70
--- NOTE | 2021-03-30 14:21 | Anesthesia-General Post-Op ---
MAC Patient Condition Mental Status/LOC: Same as Preop Cardiovascular: Satisfactory Nausea/Vomiting: Absent Respiratory: Satisfactory Pain: Controlled Complications: Absent Post Op Complications Complications None Follow Up Care/Instructions Patient Instructions None needed. Anesthesiology Discharge Order Discharge Order Patient is doing well, no complaints, stable vital signs, no apparent adverse anesthesia problems. No complications reported per nursing. LILIYA OMALLEY CRNA March 30, 2021 14:21
--- NOTE | 2021-03-30 21:42 | OPERATIVE REPORT ---
DATE OF SERVICE: 03/30/2021 ATTENDING PRIMARY CARE PHYSICIAN: Dr. Vinh Paulino PREOPERATIVE DIAGNOSIS: Screening colonoscopy. 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 PROCEDURE: Colonoscopy. SURGEON: Johnathan Nguyen MD. ANESTHESIA: Monitored anesthesia care. ESTIMATED BLOOD LOSS: Minimal. FINDINGS: Chronic stage II external and internal hemorrhoids. DISPOSITION: The patient tolerated the procedure well. INDICATIONS: The patient is a 70-year-old male referred over to us for screening colonoscopy. His last colonoscopy was over 10 years ago. He does have diarrhea on an intermittent basis; however, he does have some issues with medical noncompliance as well as poorly controlled diabetes. He also does have a history of Parkinson's disease. DESCRIPTION OF PROCEDURE: The patient was brought to the endoscopy suite, laid in the left lateral decubitus position. After adequate IV pain and sedative medications and monitored anesthesia care, a digital rectal examination was performed. Mild chronic stage II external and internal hemorrhoids were identified, which were not actively edematous nor inflamed and no bleeding. Normal sphincter tone was felt and there were no palpable masses. The endoscope was then intubated into the anus and rectum gently insufflated. The endoscope was then advanced through the valves of Tillman of the rectum with no polyps or any neoplasms identified. Through the sigmoid colon, no diverticulosis identified. The endoscope was then advanced through the remainder of the descending, transverse and ascending colon to the cecum. These segments were normal. There were no polyps or any neoplasms identified throughout the colon or rectum. The endoscope was then slowly withdrawn while taking a second look and suctioning of residual air with no additional findings. The patient tolerated the procedure well. We will recommend continued medical management with incorporation of high fiber diet as well as a fiber supplementation to equal or exceed 30 grams daily to promote soft stools on a daily basis. If he is asymptomatic, he does not need another colonoscopy for another 10 years. Job ID: [id number] DocumentID: [id number] Dictated Date: 03/30/2021 13:29:45 Supervisory Civil Engineer Date: 03/30/2021 21:42:36 Dictated By: JOHNATHAN NGUYEN MD
== END 2021-03-30 14:00 | disposition home or self-care (01) ==
LOC: ENDO 10:51
PROVIDERS: ATTEND Surgery
DX: Z12.11 Encounter for screening for malignant neoplasm of colon (principal); K64.1 Second degree hemorrhoids; E11.40 Type 2 diabetes mellitus with diabetic neuropathy, unspecified; G47.33 Obstructive sleep apnea (adult) (pediatric); G20 Parkinson's disease; K21.9 Gastro-esophageal reflux disease without esophagitis; F41.9 Anxiety disorder, unspecified; F32.9 Major depressive disorder, single episode, unspecified; J43.9 Emphysema, unspecified; G89.29 Other chronic pain; M54.9 Dorsalgia, unspecified; M79.642 Pain in left hand; M79.641 Pain in right hand; M79.672 Pain in left foot; M79.671 Pain in right foot; Z90.49 Acquired absence of other specified parts of digestive tract; Z98.890 Other specified postprocedural states; Z87.891 Personal history of nicotine dependence; Z79.891 Long term (current) use of opiate analgesic; Z79.899 Other long term (current) drug therapy; Z79.4 Long term (current) use of insulin; Z88.8 Allergy status to other drugs, medicaments and biological substances
CPT/HCPCS: 82947; G0121

== ENCOUNTER 2021-12-02 09:50 | Emergency (ER) | payer MEDICARE ==
[~2021-12-02] VITALS: Ht 177 cm; Wt 81.6 kg
[~2021-12-02 09:50] MED LIST changes: +DICY20TA PO; -DICY20TA10 PO
--- NOTE | 2021-12-02 10:09 | ED GI ---
General Stated Complaint: N/V Source of Information: Patient, RN/MD (Dr. Mcneal), Spouse Exam Limitations: No Limitations History of Present Illness Date Seen by Provider: Dec 02, 2021 Time Seen by Provider: 09:52 Initial Comments Patient to ER by private conveyance from [facility] with chief complaint is had intractable nausea vomiting for the past 3-4 days. He had a runny nose and a sore throat. He had a negative antigen COVID test today at the primary care clinic. He did not partake in a COVID-vaccine but did get influenza and a pneumonia vaccine this season. He is passing gas. He is not having any diarrhea or dysuria. He has no known sick contacts. He does have a history of strong gastroparesis and about 2 days ago was the last time he was able to take a Reglan for he instantly vomited it up. No fevers or chills. No worsening cough or shortness of air. He quit smoking 40 years ago. He has no history of lung disease he says. He is not on blood thinners. He has not been on take any of his medications. He has some epigastric abdominal discomfort. Allergies and Home Medications Allergies Coded Allergies: choline fenofibrate (Verified Allergy, Unknown, 12/07/17) gemfibrozil (Verified Allergy, Unknown, 12/07/17) niacin (Verified Allergy, Unknown, 12/07/17) pioglitazone (Verified Allergy, Unknown, 12/07/17) Patient Home Medication List Home Medication List Reviewed: Yes Colesevelam HCl (Welchol) 625 Mg Tablet, 625 MG PO EVERY OTHER DAY, (Reported) Entered as Reported by: ROSMERY MENSAH on 12/07/17 0941 Docusate Sodium (Colace) 100 Mg Capsule, 100 MG PO BID Prescribed by: KATTY PACK on 12/13/17 1100 Insulin Determir (Levemir) 1,000 Units/10 Ml Soln, 100 UNITS SQ BID, (Reported) Entered as Reported by: ROSMERY MENSAH on 12/07/17 0941 Levothyroxine Sodium (Levothyroxine Sodium) 75 Mcg Tablet, 75 MCG PO DAILY, (Reported) Entered as Reported by: ROSMERY MENSAH on 12/10/17 1604 Metformin HCl (Metformin HCl) 500 Mg Tablet, 500 MG PO BID, (Reported) Entered as Reported by: ROSMERY MENSAH on 12/07/17 09 Venlafaxine HCl (Venlafaxine HCl) 75 Mg Tab, 75 MG PO DAILY, (Reported) Entered as Reported by: ROSMERY MENSAH on 12/07/17 0941 Review of Systems Review of Systems Constitutional: No chills, No fever; malaise EENTM: No Blurred Vision, No Double Vision Respiratory: Cough (Chronic,); Denies Shortness of Air, Denies SOA at Rest Cardiovascular: Denies Chest Pain, Denies Edema Gastrointestinal: Abdominal Pain (epigastric); Denies Constipated, Denies Diarrhea; Nausea, Poor Fluid Intake, Vomiting Musculoskeletal: No back pain, No joint pain All Other Systems Reviewed Negative Unless Noted: Yes Past Rruosmk-Pgyypb-Lxbrml Hx Patient Social History Tobacco Use?: No Use of E-Cig and/or Vaping dev: No Substance use?: No Alcohol Use?: No Immunizations Up To Date Tetanus Booster (TDap): More than 5yrs PED Vaccines UTD: No Seasonal Allergies Seasonal Allergies: Yes Past Medical History Surgeries: Yes (hemmorhoids removed, CATARACTS, WRIST FX) Eye Surgery, Gallbladder, Orthopedic Respiratory: Yes Pneumonia, Sleep Apnea, COPD Currently Using CPAP: No Cardiac: Yes High Cholesterol Neurological: Yes Neuropathy, Parkinson's Disease Reproductive Disorders: No Sexually Transmitted Disease: No HIV/AIDS: No Genitourinary: No Gastrointestinal: Yes Gastroesophageal Reflux, Chronic Constipation, Hemorrhoids, Chronic Diarrhea, Irritable Bowel Musculoskeletal: Yes Arthritis, Chronic Back Pain, Fractures Endocrine: Yes (Type II) Diabetes, 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 Hearing Impairment: Denies Cancer: No Psychosocial: Yes Anxiety, Depression Integumentary: No Blood Disorders: No Adverse Reaction/Blood Tranf: No (N/A) Family Medical History Alcoholism G8 BROTHER G8 BROTHER Alzheimer's disease 19 MOTHER Arthritis 19 FATHER 19 MOTHER Asthma 19 FATHER Cataracts 19 FATHER 19 MOTHER G8 BROTHER G8 BROTHER G8 SISTER G8 SISTER G8 SISTER Completed stroke 19 FATHER G8 SISTER Deafness or hearing loss G8 BROTHER Diabetes mellitus 19 FATHER 19 MOTHER G8 BROTHER G8 BROTHER G8 BROTHER G8 SISTER G8 SISTER G8 SISTER Hypertension 19 FATHER 19 MOTHER G8 BROTHER G8 BROTHER G8 BROTHER G8 BROTHER G8 SISTER G8 SISTER G8 SISTER G8 SISTER G8 SISTER G8 SISTER G8 SISTER Respiratory disorder G8 BROTHER No Family History of: AIDS Abdominal aortic aneurysm Britton's disease Aphasia Cancer of mouth Cardiovascular disease Colon cancer Congenital disease Congenital heart disease Coronary thrombosis Cystic fibrosis Dementia Drug abuse Dysphasia Fibrocystic disease of breast Gastroenteritis Glaucoma Headache disorder Hypercholesterolemia Infertility Kidney disease Myocardial infarction Neoplasm Not obtainable due to adoption Osteoporosis Parkinson's disease Prostate cancer Psychosocial problem Seizure disorder Severe allergy Thyroid disease Tuberculosis Visual disorder Hypertension Physical Exam Vital Signs Vital Signs - First Documented 12/02/21 09:53 Temp 36.6 Pulse 98 Resp 18 B/P (MAP) 98/73 (81) Pulse Ox 99 O2 Delivery Room Air Capillary Refill : Height/Weight/BMI Height: 5'10.00" Weight: 161lbs. 4.0oz. 73.871415kc; 23.31 BMI Method:Stated General Appearance: WD/WN, mild distress HEENT: PERRL/EOMI, normal ENT inspection, TMs normal, pharynx normal Neck: non-tender, full range of motion, supple, normal inspection Respiratory: lungs clear, normal breath sounds, no respiratory distress, no accessory muscle use Cardiovascular: normal peripheral pulses, regular rate, rhythm (90s), no edema Peripheral Pulses: 2+ Radial Pulses (R), 2+ Radial Pulses (L) Gastrointestinal: normal bowel sounds (Quiescent), non tender, soft, no organomegaly Extremities: normal range of motion, non-tender, normal inspection, normal capillary refill Neurologic/Psychiatric: alert, normal mood/affect, oriented x 3 Skin: normal color, warm/dry Progress/Results/Core Measures Results/Orders Lab Results Laboratory Tests Test 12/02/21 10:04 Range/Units White Blood Count 17.5 H 4.3-11.0 10^3/uL Red Blood Count 4.43 4.30-5.52 10^6/uL Hemoglobin 13.0 L 13.3-17.7 g/dL Hematocrit 39 L 40-54 % Mean Corpuscular Volume 89 80-99 fL Mean Corpuscular Hemoglobin 29 25-34 pg Mean Corpuscular Hemoglobin Concent 33 32-36 g/dL Red Cell Distribution Width 13.1 10.0-14.5 % Platelet Count 508 H 130-400 10^3/uL Mean Platelet Volume 10.7 9.0-12.2 fL Immature Granulocyte % (Auto) 0 % Neutrophils (%) (Auto) 74 42-75 % Lymphocytes (%) (Auto) 19 12-44 % Monocytes (%) (Auto) 6 0-12 % Eosinophils (%) (Auto) 0 0-10 % Basophils (%) (Auto) 0 0-10 % Neutrophils # (Auto) 13.0 H 1.8-7.8 10^3/uL Lymphocytes # (Auto) 3.4 1.0-4.0 10^3/uL Monocytes # (Auto) 1.0 0.0-1.0 10^3/uL Eosinophils # (Auto) 0.0 0.0-0.3 10^3/uL Basophils # (Auto) 0.0 0.0-0.1 10^3/uL Immature Granulocyte # (Auto) 0.1 0.0-0.1 10^3/uL Neutrophils % (Manual) 78 % Lymphocytes % (Manual) 19 % Monocytes % (Manual) 3 % Blood Morphology Comment NORMAL Sodium Level 133 L 135-145 MMOL/L Potassium Level 4.6 3.6-5.0 MMOL/L Chloride Level 90 L 98-107 MMOL/L Carbon Dioxide Level 28 21-32 MMOL/L Anion Gap 15 H 5-14 MMOL/L Blood Urea Nitrogen 55 H 7-18 MG/DL Creatinine 2.55 H 0.60-1.30 MG/DL Estimat Glomerular Filtration Rate 26 BUN/Creatinine Ratio 22 Glucose Level 270 H 70-105 MG/DL Calcium Level 10.0 8.5-10.1 MG/DL Corrected Calcium 9.7 8.5-10.1 MG/DL Magnesium Level 2.1 1.6-2.4 MG/DL Total Bilirubin 0.3 0.1-1.0 MG/DL Aspartate Amino Transf (AST/SGOT) 14 5-34 U/L Alanine Aminotransferase (ALT/SGPT) 23 0-55 U/L Alkaline Phosphatase 179 H 40-136 U/L C-Reactive Protein High Sensitivity 3.13 H 0.00-0.50 MG/DL Total Protein 9.4 H 6.4-8.2 GM/DL Albumin 4.4 3.2-4.5 GM/DL Lipase 9 8-78 U/L Influenza Type A (RT-PCR) Not Detected Not Detecte Influenza Type B (RT-PCR) Not Detected Not Detecte SARS-CoV-2 RNA (RT-PCR) Not Detected Not Detecte My Orders Orders - MALIKA SIMEON Ed Iv/Invasive Line Start (12/02/21 10:01) Ns Iv 1000 Ml (Sodium Chloride 0.9%) (12/02/21 10:15) Ns Iv 1000 Ml (Sodium Chloride 0.9%) (12/02/21 10:15) Metoclopramide Injection (Reglan Injecti (12/02/21 10:15) Ondansetron Injection (Zofran Injectio (12/02/21 10:15) Pantoprazole Injection (Protonix Injecti (12/02/21 10:15) Diphenhydramine Injection (Benadryl Inje (12/02/21 10:15) Cbc With Automated Diff (12/02/21 10:01) Comprehensive Metabolic Panel (12/02/21 10:01) Hs C Reactive Protein (12/02/21 10:01) Lipase (12/02/21 10:01) Magnesium (12/02/21 10:01) Manual Differential (12/02/21 10:04) Covid 19 Inhouse Test (12/02/21 10:12) Influenza A And B By Pcr (12/02/21 10:12) Insulin (Regular) Human (Novolin R (Per (12/02/21 11:00) Ct Abdomen/Pelvis Wo (12/02/21 10:51) Clear Liquid (12/02/21 Lunch) Medications Given in ED Current Medications Medications Dose Ordered Sig/Jing Route Start Time Stop Time Status Last Admin Dose Admin Diphenhydramine HCl 25 mg ONCE ONCE IVP 12/02/21 10:15 12/02/21 10:16 DC 12/02/21 10:14 25 MG Metoclopramide HCl 5 mg ONCE ONCE IVP 12/02/21 10:15 12/02/21 10:16 DC 12/02/21 10:16 5 MG Ondansetron HCl 8 mg ONCE ONCE IVP 12/02/21 10:15 12/02/21 10:16 DC 12/02/21 10:12 8 MG Pantoprazole 40 mg ONCE ONCE IV 12/02/21 10:15 12/02/21 10:16 DC 12/02/21 10:17 40 MG Sodium Chloride 1,000 ml @ 0 mls/hr Q0M ONCE IV 12/02/21 10:15 12/02/21 10:16 DC 12/02/21 10:11 0 MLS/HR Vital Signs/I&O 12/02/21 12/02/21 12/02/21 12/02/21 09:53 10:31 11:41 13:20 Temp 36.6 Pulse 98 117 104 112 Resp 18 20 18 18 B/P (MAP) 98/73 (81) 98/40 117/71 119/69 Pulse Ox 99 96 95 97 O2 Delivery Room Air Room Air Progress Progress Note #1: Time: 10:10 Progress Note Patient had a little soft blood pressure when he first got here but on repeat assessment is 131/70. Borderline tachycardic in the upper 90s. Plan to give him 1 maybe 2 L of fluids given some Reglan Zofran and check some labs as well as a CT to rule out severe pancreatitis, bowel obstruction etc. Likely this is a diabetic gastroparesis may be with a viral onset since he is having a runny nose and sore throat. We will repeat a COVID and influenza swab for PCR testing. Progress Note #2: Time: 12:02 Progress Note The patient's symptoms of nausea are gone. He is feeling better. He has an acute kidney injury and likely due to the dehydration from his intractable vomiting for the past 2 days. Will allow him to complete the rest of his 2 L of fluid and reexamine him. He really is not interested in staying in the hospital and if we can get him rehydrated and so he can tolerate oral intake then he could go home and continue outpatient treatment. Diagnostic Imaging Diagonstic Imaging: CT Plain Films/CT/US/NM/MRI: abdomen, pelvis Comments [facility]. [place], [place] NAME: SRAVANI ARTEAGA [facility] REC#: [id number] PT STATUS: REG ER : 1950 PHYSICIAN: MALIKA SIMEON MD ADMIT DATE: 12/02/21/ER Draft Date of Exam:12/02/21 CT ABDOMEN/PELVIS WO CLINICAL INDICATION: Patient complains of nausea and vomiting x2 days. Patient has history of diabetes and gastroparesis. Patient is unable to keep medications down. EXAM: CT exam of the abdomen and pelvis is performed without IV or oral contrast using stone protocol. Coronal and sagittal reformatted images were created. Auto Exposure Controls were utilized during the CT exam to meet ALARA standards for radiation dose reduction. COMPARISONS: CT scan of the abdomen and pelvis without contrast dated 06/07/2018. X-ray of the chest and abdomen dated 06/13/2020. FINDINGS: There is minimal atelectasis involving both lung bases. There are degenerative spurs involving the visualized lower thoracic spine and lumbar spine. There is lower lumbar spine facet arthropathy. There is a burst fracture involving the T12 vertebra, which has developed in the interim with sclerosis. There is mild central canal narrowing and at least moderate right neural foramen narrowing and [id number] left neural foramen narrowing which has progressed. This fracture may be late subacute or chronic. Clinical correlation for timing would better evaluate. The gallbladder is surgically absent and is also noted on the prior study. The liver, spleen, pancreas, and adrenal glands are unremarkable and not significantly changed in the interim. There is moderate atrophy of the pancreas is again noted. Both kidneys show cortical thinning. There is a nonobstructive stone involving the mid portion of the right kidney measuring roughly 3 mm. This is new compared to the prior study. There is no hydronephrosis or mass seen. There are no stones in the ureters. Bladder is fluid filled and otherwise unremarkable. There is no significant stool load seen. There is no intestinal obstruction. There is mildly air-filled esophagus again noted. There is mild wall thickening involving the distal esophagus again noted. Stomach is unremarkable. Visualized small bowel is unremarkable. The appendix is unremarkable. There is no intra-abdominal free air or free fluid. There is no lymphadenopathy. Abdominal aorta and common iliac arteries are non-aneurysmal. The extra-abdominal and extrapelvic soft tissue structures are unremarkable. Previously seen indurated skin along the left anterior aspect of the abdomen has predominantly resolved. IMPRESSION: 1: Again noted slightly air-filled esophagus with thickening of the distal esophagus. This finding may be seen with esophageal dysmotility or esophageal reflux. There is also mild thickening of the distal esophagus, which may be related to esophagitis. Esophagram would better evaluate. 2: The remainder of this exam shows no evidence of acute abdominal or pelvic process. There is no evidence of intestinal obstruction. 3: The previously seen indurated thickening of the anterior extra-abdominal skin/soft tissue has resolved. 4: The remainder of this exam shows no significant interval change compared to the prior study of comparison. Dictated on workstation # [id number] Dict: 12/02/21 1108 Trans: 12/02/21 1124 [id number] Interpreted by: CHRISTOPHER ROWLEY MD Electronically signed by: Reviewed: Reviewed by Me Departure Impression Primary Impression: Dehydration Additional Impressions: Gastroparesis due to DM CHARLES (acute kidney injury) Disposition: HOME, SELF-CARE Condition: Stable Departure-Patient Inst. Decision time for Depature: 13:47 Referrals: REINALDO HASSAN MD (PCP/Family) Primary Care Physician Patient Instructions: Gastroparesis (Delayed Gastric Emptying) (DC) Add. Discharge Instructions: Continue to drink plenty of fluids. Take your medications as prescribed. As long as you are able to tolerate this then follow-up next week with your primary doctor for repeat blood work. If you are having repeat of symptoms and you cannot get her nausea under control or other worrisome findings then please return to the nearest ER for further evaluation and management. MALKIA SIMEON Dec 02, 2021 10:09
[2021-12-02 10:12] LABS: BASOPHILS % (AUTO) 0 % (0-10); EOSINOPHILS % (AUTO) 0 % (0-10); HEMATOCRIT 39 % (40-54); LYMPHOCYTES # (AUTO) 3.4 10^3/uL (1.0-4.0); LYMPHOCYTES % (AUTO) 19 % (12-44); MEAN CORPUSCULAR HEMOGLOBIN 29 pg (25-34); MEAN CORPUSCULAR HGB CONC 33 g/dL (32-36); MEAN CORPUSCULAR VOLUME 89 fL (80-99); MEAN PLATELET VOLUME 10.7 fL (9.0-12.2); MONOCYTES % (AUTO) 6 % (0-12); NEUTROPHILS % (AUTO) 74 % (42-75); PLATELET COUNT 508 10^3/uL (130-400); WHITE BLOOD COUNT 17.5 10^3/uL (4.3-11.0)
[2021-12-02] MEDS ORDERED: ONDANSETRON 4 MG/2 ML (SDV) Z0FRAN IVP ONE (10:15)
[2021-12-02] MEDS ORDERED: METOCLOPRAMIDE INJ 10 MG/2 ML (REGLAN) IVP ONE (10:15)
[2021-12-02] MEDS ORDERED: PANTOPRAZOLE 40 MG (PROTONIX) VIAL IV ONE (10:15)
[2021-12-02] MEDS ORDERED: diphenhydrAMINE 50 MG/ML INJ (BENADRYL) IVP ONE (10:15)
[2021-12-02] MEDS ORDERED: NS IV 1000 ML 1,000 ML IV ONE (10:15)
[2021-12-02] MEDS ORDERED: NS IV 1000 ML 1,000 ML IV SCH (10:15)
[2021-12-02 10:23] LABS: ALBUMIN 4.4 GM/DL (3.2-4.5); POTASSIUM 4.6 MMOL/L (3.6-5.0)
[2021-12-02 10:26] LABS: TOTAL PROTEIN 9.4 GM/DL (6.4-8.2)
[2021-12-02 10:28] LABS: BILIRUBIN,TOTAL 0.3 MG/DL (0.1-1.0)
[2021-12-02 10:29] LABS: LYMPHOCYTES % (MANUAL) 19 %; MONOCYTES % (MANUAL) 3 %; NEUTROPHILS % (MANUAL) 78 %
[2021-12-02 10:30] LABS: CREATININE SERUM 2.55 MG/DL (0.60-1.30); RBC MORPH NORMAL
[2021-12-02 10:33] LABS: MAGNESIUM 2.1 MG/DL (1.6-2.4)
[2021-12-02] MEDS ORDERED: inSUlin (REGULAR) HUMAN 1 UNIT/0.01 ML (CHARGE PER UNIT) SC SCH (11:00)
--- NOTE | 2021-12-02 11:25 | Diagnostic Imaging Report ---
CLINICAL INDICATION: Patient complains of nausea and vomiting x2 days. Patient has history of diabetes and gastroparesis. Patient is unable to keep medications down. EXAM: CT exam of the abdomen and pelvis is performed without IV or oral contrast using stone protocol. Coronal and sagittal reformatted images were created. Auto Exposure Controls were utilized during the CT exam to meet ALARA standards for radiation dose reduction. COMPARISONS: CT scan of the abdomen and pelvis without contrast dated 06/07/2018. X-ray of the chest and abdomen dated 06/13/2020. FINDINGS: There is minimal atelectasis involving both lung bases. There are degenerative spurs involving the visualized lower thoracic spine and lumbar spine. There is lower lumbar spine facet arthropathy. There is a burst fracture involving the T12 vertebra, which has developed in the interim with sclerosis. There is mild central canal narrowing and at least moderate right neural foramen narrowing and [id number] left neural foramen narrowing which has progressed. This fracture may be late subacute or chronic. Clinical correlation for timing would better evaluate. The gallbladder is surgically absent and is also noted on the prior study. The liver, spleen, pancreas, and adrenal glands are unremarkable and not significantly changed in the interim. There is moderate atrophy of the pancreas is again noted. Both kidneys show cortical thinning. There is a nonobstructive stone involving the mid portion of the right kidney measuring roughly 3 mm. This is new compared to the prior study. There is no hydronephrosis or mass seen. There are no stones in the ureters. Bladder is fluid filled and otherwise unremarkable. There is no significant stool load seen. There is no intestinal obstruction. There is mildly air-filled esophagus again noted. There is mild wall thickening involving the distal esophagus again noted. Stomach is unremarkable. Visualized small bowel is unremarkable. The appendix is unremarkable. There is no intra-abdominal free air or free fluid. There is no lymphadenopathy. Abdominal aorta and common iliac arteries are non-aneurysmal. The extra-abdominal and extrapelvic soft tissue structures are unremarkable. Previously seen indurated skin along the left anterior aspect of the abdomen has predominantly resolved. IMPRESSION: 1: Again noted slightly air-filled esophagus with thickening of the distal esophagus. This finding may be seen with esophageal dysmotility or esophageal reflux. There is also mild thickening of the distal esophagus, which may be related to esophagitis. Esophagram would better evaluate. 2: The remainder of this exam shows no evidence of acute abdominal or pelvic process. There is no evidence of intestinal obstruction. 3: The previously seen indurated thickening of the anterior extra-abdominal skin/soft tissue has resolved. 4: The remainder of this exam shows no significant interval change compared to the prior study of comparison. Dictated by: Dictated on workstation # [id number]
[2021-12-02 13:53] VITALS: BP 178/68
== END 2021-12-02 13:53 | disposition home or self-care (01) ==
LOC: EDUNIT# 09:50 → ER 09:51
DX: E86.0 Dehydration (principal); E11.43 Type 2 diabetes mellitus with diabetic autonomic (poly)neuropathy; K31.84 Gastroparesis; N17.9 Acute kidney failure, unspecified; J44.9 Chronic obstructive pulmonary disease, unspecified; G47.30 Sleep apnea, unspecified; G20 Parkinson's disease; F41.9 Anxiety disorder, unspecified; F32.9 Major depressive disorder, single episode, unspecified; Z20.822 Contact with and (suspected) exposure to COVID-19; Z79.4 Long term (current) use of insulin; Z79.891 Long term (current) use of opiate analgesic; Z79.899 Other long term (current) drug therapy
CPT/HCPCS: 36415; 74176; 80053; 83690; 83735; 85007; 85027; 86141; 87636

== ENCOUNTER 2022-05-11 10:29 | Emergency (ER) | payer MEDICARE ==
[~2022-05-11] VITALS: Ht 177 cm; Wt 83.7 kg
[2022-05-11 11:12] LABS: BASOPHILS # (AUTO) 0.1 10^3/uL (0.0-0.1); BASOPHILS % (AUTO) 1 % (0-10); EOSINOPHILS # (AUTO) 0.2 10^3/uL (0.0-0.3); EOSINOPHILS % (AUTO) 2 % (0-10); HEMATOCRIT 34 % (40-54); HEMOGLOBIN 11.4 g/dL (13.3-17.7); LYMPHOCYTES # (AUTO) 2.3 10^3/uL (1.0-4.0); LYMPHOCYTES % (AUTO) 27 % (12-44); MEAN CORPUSCULAR HEMOGLOBIN 29 pg (25-34); MEAN CORPUSCULAR HGB CONC 34 g/dL (32-36); MEAN CORPUSCULAR VOLUME 87 fL (80-99); MEAN PLATELET VOLUME 10.8 fL (9.0-12.2); MONOCYTES # (AUTO) 0.6 10^3/uL (0.0-1.0); MONOCYTES % (AUTO) 7 % (0-12); NEUTROPHILS # (AUTO) 5.5 10^3/uL (1.8-7.8); NEUTROPHILS % (AUTO) 63 % (42-75); PLATELET COUNT 353 10^3/uL (130-400); WHITE BLOOD COUNT 8.7 10^3/uL (4.3-11.0)
[2022-05-11 11:24] LABS: ALBUMIN 3.5 GM/DL (3.2-4.5)
[2022-05-11 11:26] LABS: CALCIUM 9.2 MG/DL (8.5-10.1)
[2022-05-11 11:27] LABS: TOTAL PROTEIN 7.6 GM/DL (6.4-8.2)
[2022-05-11] MEDS ORDERED: NS IV 1000 ML 1,000 ML IV STA (11:27)
[2022-05-11 11:29] LABS: BILIRUBIN,TOTAL 0.2 MG/DL (0.1-1.0)
[2022-05-11 11:31] LABS: CREATININE SERUM 1.87 MG/DL (0.60-1.30)
--- NOTE | 2022-05-11 11:32 | ED General ---
General Chief Complaint: General Problems/Pain Stated Complaint: FALLING Nursing Triage Note: Pt states that his gait was been weak for a long time but much worse over the last week. He has had multiple falls. They went out to breakfast this morning and then tried to get into the clinic to see Dr. Hassan but were advised to come in for evaluation. Pt has generalized weakness and is almost unable to ambulate, difficulty transferring from the wheelchair without assistance. Source of Information: Patient Exam Limitations: No Limitations (CHRIS ALFARO) History of Present Illness Date Seen by Provider: May 11, 2022 Time Seen by Provider: 11:29 Initial Comments Patient is a 71-year-old male with a history of diabetes, high cholesterol, hypertension who presents ED with generalized weakness and multiple falls. Patient states he has been feeling weak over the past week. He reports dizziness that is intermittent worse with walking. Does use a cane. According to at bedside patient fell yesterday as well as today when eating breakfast. Denies hit his head loss of consciousness or on blood thinners. Patient is having difficulty ambulating. He had a mild headache this morning but that improved. According to patient was on blood pressure medication but was taken off. History of multiple falls in the past. Currently lives at home with . Denies of any current chest pain, shortness of breath, cough, abdominal pain vomiting, diarrhea, visual loss. He does report neuropathy throughout his extremities. According to patient has chronic muscle weakness. Patient denies ear ringing, hearing loss, ear pain, urinary symptoms, fever, change in mental status (CHRIS ALFARO) Allergies and Home Medications Allergies Coded Allergies: choline fenofibrate (Verified Allergy, Unknown, 12/07/17) gemfibrozil (Verified Allergy, Unknown, 12/07/17) niacin (Verified Allergy, Unknown, 12/07/17) pioglitazone (Verified Allergy, Unknown, 12/07/17) Patient Home Medication List Home Medication List Reviewed: Yes (CHRIS ALFARO) Albuterol Sulfate (Proair Hfa) 1 Puff Puff, 2 PUFF IH Q4H PRN for SHORTNESS OF BREATH, (Reported) Entered as Reported by: ANEESH CORREA on 05/12/22 8351 Alirocumab (Praluent Pen) 75 Mg/Ml Pen.injctr, 75 MG INJ EVERY 2 WEEKS, (Reported) Entered as Reported by: ANEESH CORREA on 05/12/221620 Aspirin (Aspirin EC) 81 Mg Tablet.dr, 81 MG PO DAILY, (Reported) Entered as Reported by: ANEESH CORREA on 05/12/221620 Colesevelam HCl (Welchol) 625 Mg Tablet, 625 MG PO DAILY, (Reported) Entered as Reported by: ROSMERY MENSAH on 12/07/17 0941 Colesevelam HCl (Welchol) 625 Mg Tablet, 625 MG PO DAILY PRN for LOOSE STOOLS, (Reported) Entered as Reported by: ANEESH CORREA on 05/12/221620 Hydrocodone/Acetaminophen (Hydrocodone-Acetamin 5-325 mg) 5 Mg-325 Mg Tablet, 1 EA PO Q8H PRN for PAIN-MODERATE (5-7), (Reported) Entered as Reported by: ANEESH CORREA on 05/12/221620 Insulin Aspart (Novolog Flexpen) 100 Unit/Ml (3 Ml) Solution, 10 UNITS SQ AC, (Reported) Entered as Reported by: ANEESH CORREA on 05/12/221620 Insulin Degludec (Tresiba Flextouch U-200) 200 Unit/Ml (3 Ml) Insuln.pen, 70 UNITS SC DAILY, (Reported) Entered as Reported by: ANEESH CORREA on 05/12/221620 Levothyroxine Sodium (Levothyroxine Sodium) 125 Mcg Tablet, 125 MCG PO DAILY, (R eported) Entered as Reported by: ANEESH CORREA on 05/12/221620 Lisinopril (Lisinopril) 2.5 Mg Tablet, 2.5 MG PO DAILY, (Reported) Entered as Reported by: ANEESH CORREA on 05/12/221620 Metoclopramide HCl (Metoclopramide HCl) 10 Mg Tablet, 10 MG PO DAILY, (Reported) Entered as Reported by: ANEESH CORREA on 05/12/221620 Mirabegron (Myrbetriq) 50 Mg Tab.er.24h, 50 MG PO DAILY, (Reported) Entered as Reported by: ANEESH CORREA on 05/12/221620 Omeprazole (Omeprazole) 20 Mg Capsule.dr, 20 MG PO HS PRN for HEARTBURN, (Reported) Entered as Reported by: ANEESH CORREA on 05/12/22 1621 Venlafaxine HCl (Venlafaxine HCl) 75 Mg Tab, 75 MG PO DAILY, (Reported) Entered as Reported by: ROSMERY MENSAH on 12/07/17 0941 Discontinued Medications Docusate Sodium (Colace) 100 Mg Capsule, 100 MG PO BID Discontinued Reason: No Longer Taking Prescribed by: KATTY PACK on 12/13/17 1100 Insulin Determir (Levemir) 1,000 Units/10 Ml Soln, 100 UNITS SQ BID, (Reported) Discontinued Reason: No Longer Taking Entered as Reported by: ROSMERY MENSAH on 12/07/17 0941 Levothyroxine Sodium (Levothyroxine Sodium) 75 Mcg Tablet, 75 MCG PO DAILY, (Reported) Discontinued Reason: No Longer Taking Entered as Reported by: ROSMERY MENSAH on 12/10/17 1604 Lisinopril (Lisinopril) 2.5 Mg Tablet, 2.5 MG PO DAILY Discontinued Reason: No Longer Taking Prescribed by: PAWEL SUERO on 05/11/22 1435 Metformin HCl (Metformin HCl) 500 Mg Tablet, 500 MG PO BID, (Reported) Discontinued Reason: No Longer Taking Entered as Reported by: ROSMERY MENSAH on 12/07/17 0941 Review of Systems Review of Systems Constitutional: No chills; malaise EENTM: No ear pain, No blurred vision, No double vision Respiratory: No cough, No short of breath Cardiovascular: No chest pain, No edema Gastrointestinal: No abdominal pain, No diarrhea, No nausea, No vomiting Genitourinary: No decreased output, No discharge Musculoskeletal: No back pain, No joint pain Skin: No change in color, No change in hair/nails Psychiatric/Neurological: Headache, Other (dizziness) (CHRIS ALFARO) All Other Systems Reviewed Negative Unless Noted: Yes (CHRIS ALFARO) Past Oiluhgq-Dlkacq-Lccits Hx Patient Social History Tobacco Use?: No Use of E-Cig and/or Vaping dev: No Substance use?: No Alcohol Use?: No Pt feels they are or have been: No (CHRIS ALFARO) Immunizations Up To Date Tetanus Booster (TDap): More than 5yrs PED Vaccines UTD: No Influenza Vaccine Up-to-Date: Yes; Up-to-Date First/Initial COVID19 Vaccinat: NO (CHRIS ALFARO) Seasonal Allergies Seasonal Allergies: Yes (CHRIS ALFARO) Past Medical History Surgeries: Yes (hemmorhoids removed, CATARACTS, WRIST FX) Eye Surgery, Gallbladder, Orthopedic Respiratory: Yes Pneumonia, Sleep Apnea, COPD Currently Using CPAP: No Cardiac: Yes High Cholesterol Neurological: Yes Neuropathy, Parkinson's Disease Reproductive Disorders: No Sexually Transmitted Disease: No HIV/AIDS: No Genitourinary: No Gastrointestinal: Yes Gastroesophageal Reflux, Chronic Constipation, Hemorrhoids, Chronic Diarrhea, Irritable Bowel Musculoskeletal: Yes Arthritis, Chronic Back Pain, Fractures Endocrine: Yes (Type II) Diabetes, 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 Hearing Impairment: Denies Cancer: No Psychosocial: Yes Anxiety, Depression Integumentary: No Blood Disorders: No Adverse Reaction/Blood Tranf: No (N/A) (CHRIS ALFARO) Family Medical History Alcoholism G8 BROTHER G8 BROTHER Alzheimer's disease 19 MOTHER Arthritis 19 FATHER 19 MOTHER Asthma 19 FATHER Cataracts 19 FATHER 19 MOTHER G8 BROTHER G8 BROTHER G8 SISTER G8 SISTER G8 SISTER Completed stroke 19 FATHER G8 SISTER Deafness or hearing loss G8 BROTHER Diabetes mellitus 19 FATHER 19 MOTHER G8 BROTHER G8 BROTHER G8 BROTHER G8 SISTER G8 SISTER G8 SISTER Hypertension 19 FATHER 19 MOTHER G8 BROTHER G8 BROTHER G8 BROTHER G8 BROTHER G8 SISTER G8 SISTER G8 SISTER G8 SISTER G8 SISTER G8 SISTER G8 SISTER Respiratory disorder G8 BROTHER No Family History of: AIDS Abdominal aortic aneurysm [place]'s disease Aphasia Cancer of mouth Cardiovascular disease Colon cancer Congenital disease Congenital heart disease Coronary thrombosis Cystic fibrosis Dementia Drug abuse Dysphasia Fibrocystic disease of breast Gastroenteritis Glaucoma Headache disorder Hypercholesterolemia Infertility Kidney disease Myocardial infarction Neoplasm Not obtainable due to adoption Osteoporosis Parkinson's disease Prostate cancer Psychosocial problem Seizure disorder Severe allergy Thyroid disease Tuberculosis Visual disorder Hypertension (CHRIS ALFARO) Physical Exam Vital Signs Vital Signs - First Documented 05/11/22 10:36 Temp 36.9 Pulse 88 Resp 24 B/P (MAP) 177/83 Pulse Ox 96 O2 Delivery Room Air (FLORA CAPELLAN MD) Vital Signs Capillary Refill : Less Than 3 Seconds (CHRIS ALFARO) Height, Weight, BMI Height: 5'10.00" Weight: 161lbs. 4.0oz. [id number]; 26.00 BMI Method:Stated General Appearance: No Apparent Distress, WD/WN Eyes: Bilateral Eye Normal Inspection, Bilateral Eye PERRL, Bilateral Eye EOMI HEENT: PERRL/EOMI, TMs Normal, Normal ENT Inspection, Other (Abnormal left pupil) Neck: Full Range of Motion, Normal Inspection, Non Tender, Supple Respiratory: Chest Non Tender, Lungs Clear, Normal Breath Sounds Cardiovascular: Regular Rate, Rhythm, No Edema, No Gallop, No JVD Gastrointestinal: Normal Bowel Sounds, No Organomegaly, No Pulsatile Mass Back: Normal Inspection, No CVA Tenderness, No Vertebral Tenderness Extremity: Normal Capillary Refill, Normal Inspection, Normal Range of Motion Neurologic/Psychiatric: Alert, Oriented x3, No Motor/Sensory Deficits, Normal Mood/Affect, machine setter automatic II-XII Norm as Tested Skin: Normal Color, Warm/Dry (CHRIS ALFARO) Progress/Results/Core Measures Suspected Sepsis SIRS Temperature: Pulse: 88 Respiratory Rate: 24 Laboratory Tests 05/11/22 11:00: White Blood Count 8.7 Blood Pressure 177 /83 Mean: 114 Laboratory Tests 05/11/22 11:00: Creatinine 1.87H, Platelet Count 353, Total Bilirubin 0.2 (CHRIS ALFARO) Results/Orders Lab Results Laboratory Tests Test 05/11/22 11:00 05/11/22 13:18 05/11/22 14:24 Range/Units White Blood Count 8.7 4.3-11.0 10^3/uL Red Blood Count 3.88 L 4.30-5.52 10^6/uL Hemoglobin 11.4 L 13.3-17.7 g/dL Hematocrit 34 L 40-54 % Mean Corpuscular Volume 87 80-99 fL Mean Corpuscular Hemoglobin 29 25-34 pg Mean Corpuscular Hemoglobin Concent 34 32-36 g/dL Red Cell Distribution Width 13.2 10.0-14.5 % Platelet Count 353 130-400 10^3/uL Mean Platelet Volume 10.8 9.0-12.2 fL Immature Granulocyte % (Auto) 0 % Neutrophils (%) (Auto) 63 42-75 % Lymphocytes (%) (Auto) 27 12-44 % Monocytes (%) (Auto) 7 0-12 % Eosinophils (%) (Auto) 2 0-10 % Basophils (%) (Auto) 1 0-10 % Neutrophils # (Auto) 5.5 1.8-7.8 10^3/uL Lymphocytes # (Auto) 2.3 1.0-4.0 10^3/uL Monocytes # (Auto) 0.6 0.0-1.0 10^3/uL Eosinophils # (Auto) 0.2 0.0-0.3 10^3/uL Basophils # (Auto) 0.1 0.0-0.1 10^3/uL Immature Granulocyte # (Auto) 0.0 0.0-0.1 10^3/uL Sodium Level 132 L 135-145 MMOL/L Potassium Level 5.0 3.6-5.0 MMOL/L Chloride Level 96 L 98-107 MMOL/L Carbon Dioxide Level 24 21-32 MMOL/L Anion Gap 12 5-14 MMOL/L Blood Urea Nitrogen 28 H 7-18 MG/DL Creatinine 1.87 H 0.60-1.30 MG/DL Estimat Glomerular Filtration Rate 38 BUN/Creatinine Ratio 15 Glucose Level 403 *H 70-105 MG/DL Calcium Level 9.2 8.5-10.1 MG/DL Corrected Calcium 9.6 8.5-10.1 MG/DL Magnesium Level 1.7 1.6-2.4 MG/DL Total Bilirubin 0.2 0.1-1.0 MG/DL Aspartate Amino Transf (AST/SGOT) 27 5-34 U/L Alanine Aminotransferase (ALT/SGPT) 28 0-55 U/L Alkaline Phosphatase 162 H 40-136 U/L Troponin I < 0.028 <0.028 NG/ML C-Reactive Protein High Sensitivity 2.33 H 0.00-0.50 MG/DL B-Type Natriuretic Peptide 12.6 <100.0 PG/ML Total Protein 7.6 6.4-8.2 GM/DL Albumin 3.5 3.2-4.5 GM/DL Urine Color YELLOW Urine Clarity CLEAR Urine pH 5.5 5-9 Urine Specific [place] 1.025 H 1.016-1.022 Urine Protein 2+ H NEGATIVE Urine Glucose (UA) 3+ H NEGATIVE Urine Ketones NEGATIVE NEGATIVE Urine Nitrite NEGATIVE NEGATIVE Urine Bilirubin NEGATIVE NEGATIVE Urine Urobilinogen 0.2 < = 1.0 MG/DL Urine Leukocyte Esterase NEGATIVE NEGATIVE Urine RBC (Auto) TRACE-I H NEGATIVE Urine RBC NONE /HPF Urine WBC NONE /HPF Urine Squamous Epithelial Cells RARE /HPF Urine Crystals NONE /LPF Urine Bacteria NEGATIVE /HPF Urine Casts NONE /LPF Urine Mucus NEGATIVE /LPF Urine Culture Indicated NO Glucometer 318 H 70-110 MG/DL (FLORA CAPELLAN MD) My Orders Orders - FLORA CAPELLAN MD Cbc With Automated Diff (05/11/22 10:35) Comprehensive Metabolic Panel (05/11/22 10:35) Magnesium (05/11/22 10:35) Ua Culture If Indicated (05/11/22 10:35) Ed Iv/Invasive Line Start (05/11/22 10:35) (FLORA CAPELLAN MD) Vital Signs/I&O 05/11/22 05/11/22 05/11/22 05/11/22 10:36 10:36 14:00 14:18 Temp 36.9 36.9 Pulse 88 88 74 77 Resp 24 24 24 25 B/P (MAP) 177/83 177/83 (114) 161/83 132/64 Pulse Ox 96 96 97 97 O2 Delivery Room Air Room Air Room Air 05/11/22 05/11/22 14:33 14:55 Pulse 77 76 Resp 14 19 B/P (MAP) 142/85 142/85 Pulse Ox 93 95 O2 Delivery Room Air Room Air (FLORA CAPELLAN MD) Vital Signs/I&O Capillary Refill : Less Than 3 Seconds (CHRIS ALFARO) Blood Pressure Mean: 114 ECG Comment Sinus rhythm, 86 bpm, QRS duration 91 MS, QTc 397 MS (CHRIS ALFARO) Departure Communication (PCP) Patient on arrival was hypertensive. States he was on lisinopril 2.5 and was taken off of the medication secondary to hypotension. Patient remained hypertensive here. Patient Was given dose of labetalol 10mg with improvement of BP. Denies of any chest pain but does report some mild shortness of breath which she states is fairly chronic. He Does use breathing treatments at home. Patient refused chest x-ray. EKG showed normal sinus rhythm. Cardiac work-up unremarkable. Patient showed normal white blood count. Kidney function 1.87 creatinine, BUN of 28. Patient was seen in November with a creatinine of 2.15 and received IV fluids. According to at bedside patient has fallen over the past 2 days and more frequently over the past 2 weeks. History of fall in the past. She is concerned patient may have form of Alzheimer's as he has a history of memory changes. She states he appears to be at his current baseline. CT scan the head was unremarkable. No cervical, thoracic or lumbar midline tenderness. patient is unsure if he hit his head but believes he did not. He is not on blood thinners. GCS 15. Alert and orient x3. Patient did receive a liter of fluid here. urinalysis concerning for dehydration. Discussed a potential second liter of fluid patient refused. No history of CHF. Patient was able to urinate without evidence of infection. He denies of any change in urination. Difficulty getting around at home. Discussed with family that he would likely benefit with inpatient rehab and recommend admission for rehab and further trend of his kidney function and blood pressure management. She wants to take patient at home at this time. She states that she feels like she can take care of him at home at this time. Discussed my concern for change in kidney function and BP. Concerned that patient not able to to take care of himself at home. Family acknowledges Patient blood sugar was 400. He Is currently on metformin and long-acting insulin. Continue monitoring blood sugar at home. Improved to 318 after small dose of insulin. discussed diet changes. Does not appear to be in DKA. Likely improved with hydration. Patient did not want to wait for any improvement of his lab work at this time. Patient eager to be discharged. Strongly recommend return if symptoms worsen (CHRIS ALFARO) Impression Primary Impression: CHARLES (acute kidney injury) Additional Impressions: Dehydration Elevated blood pressure reading Disposition: HOME, SELF-CARE Condition: Stable Departure-Patient Inst. Decision time for Depature: 14:35 (CHRIS ALFARO) Referrals: REINALDO HASSAN MD (PCP/Family) Primary Care Physician Patient Instructions: Acute Kidney Injury (DC) Add. Discharge Instructions: Need to follow-up with recheck of kidney function and blood pressure with your primary care physician. Strongly recommend returning if not able to get around at home. All discharge instructions reviewed with patient and/or family. Voiced understanding. ATTENDING PHYSICIAN NOTE: I was physically present as attending physician in the emergency department during the care of this patient. I placed orders after reviewing chief complaint. I was not otherwise directly involved in the decision making or delivery of care for this patient. (FLORA CAPELLAN MD) CHRIS ALFARO May 11, 2022 11:32 FLORA CAPELLAN MD May 12, 2022 20:32
[2022-05-11 11:34] LABS: MAGNESIUM 1.7 MG/DL (1.6-2.4)
--- NOTE | 2022-05-11 12:18 | Diagnostic Imaging Report ---
PROCEDURE: CT head without contrast. TECHNIQUE: Multiple contiguous axial images were obtained through the brain without the use of intravenous contrast. Auto Exposure Controls were utilized during the CT exam to meet ALARA standards for radiation dose reduction. INDICATION: Head pain, dizziness. COMPARISON: No priors. FINDINGS: There is cerebrocortical atrophy with ventricular calibers congruent with the degree of sulcation. No kalani hydrocephalus. There is some calcification and mineralization along the basal ganglia bilaterally, incidental. There were no findings to suggest hemorrhage and there are no acute or suspicious extra-axial fluid collections. No focal or generalized cerebral edema. The sulci are non effaced. The oliva-white matter differentiations are maintained. There are atherosclerotic vascular calcifications and some periventricular white matter disease, likely small vessel sequelae. IMPRESSION: There are chronic-appearing senescent changes with no hemorrhage, edema, or acute-appearing abnormality. Dictated by: Dictated on workstation # [id number]
[2022-05-11 13:23] LABS: BILIRUBIN,URINE NEGATIVE (NEGATIVE); CLARITY,URINE CLEAR; COLOR,URINE YELLOW; GLUCOSE, URINE (UA) 3+ (NEGATIVE); KETONES,URINE NEGATIVE (NEGATIVE); LEUKOCYTE ESTERASE ,URINE NEGATIVE (NEGATIVE); NITRITE,URINE NEGATIVE (NEGATIVE); PH,URINE 5.5 (5-9); PROTEIN,URINE 2+ (NEGATIVE)
[2022-05-11 13:32] LABS: BACTERIA,URINE NEGATIVE /HPF; SQUAMOUS EPITHELIAL CELL,UR RARE /HPF
[2022-05-11] MEDS ORDERED: inSUlin (REGULAR) HUMAN 1 UNIT/0.01 ML (CHARGE PER UNIT) SC ONE (13:45)
[2022-05-11] MEDS ORDERED: LABETALOL HCL 20 MG/4 ML VIAL IV ONE (13:45)
[2022-05-11] MEDS ORDERED: inSUlin (REGULAR) HUMAN 1 UNIT/0.01 ML (CHARGE PER UNIT) ONE (13:50)
[2022-05-11] MEDS ORDERED: LISI2.5T13 PO (14:35)
[2022-05-11 14:55] VITALS: BP 142/85
[2022-05-12] MEDS ORDERED: RT-ALBUINH IH (16:21)
[2022-05-12] MEDS ORDERED: COLE625T9 PO (16:21)
[2022-05-12] MEDS ORDERED: LEVO125T6 PO (16:21)
[2022-05-12] MEDS ORDERED: OMEP20CA18 PO (16:21)
[2022-05-12] MEDS ORDERED: INSU200I4 SC (16:21)
[2022-05-12] MEDS ORDERED: ACHD5005 PO (16:21)
[2022-05-12] MEDS ORDERED: INSU100I14 SQ (16:21)
[2022-05-12] MEDS ORDERED: MIRA50TA PO (16:21)
[2022-05-12] MEDS ORDERED: MTC10T PO (16:21)
[2022-05-12] MEDS ORDERED: LISI2.5T13 PO (16:21)
[2022-05-12] MEDS ORDERED: ASPI-1238 PO (16:21)
[2022-05-12] MEDS ORDERED: ALIR75PE5 INJ (16:21)
== END 2022-05-11 14:55 | disposition home or self-care (01) ==
LOC: EDUNIT# 10:29 → ER 10:31
DX: N17.9 Acute kidney failure, unspecified (principal); E86.0 Dehydration; I10 Essential (primary) hypertension; I95.9 Hypotension, unspecified; E11.40 Type 2 diabetes mellitus with diabetic neuropathy, unspecified; Z91.81 History of falling; Z79.4 Long term (current) use of insulin; Z79.84 Long term (current) use of oral hypoglycemic drugs; Z79.899 Other long term (current) drug therapy; Z28.310 Unvaccinated for COVID-19
CPT/HCPCS: 36415; 70450; 80053; 81000; 82947; 83735; 83880; 84484; 85025; 86141; 93005

== ENCOUNTER 2022-05-12 08:27 | Inpatient (IN) | payer MEDICARE ==
[2022-05-12] VITALS (7 sets, daily range): BP systolic 123–220; BP diastolic 63–89
[~2022-05-12] VITALS: Ht 177.8 cm; Wt 85.2 kg
[~2022-05-12 08:27] MED LIST changes: +LISI2.5T13 PO
[2022-05-12 09:04] LABS: BASOPHILS # (AUTO) 0.1 10^3/uL (0.0-0.1); BASOPHILS % (AUTO) 1 % (0-10); EOSINOPHILS # (AUTO) 0.2 10^3/uL (0.0-0.3); EOSINOPHILS % (AUTO) 2 % (0-10); HEMATOCRIT 33 % (40-54); HEMOGLOBIN 10.9 g/dL (13.3-17.7); LYMPHOCYTES # (AUTO) 3.1 10^3/uL (1.0-4.0); LYMPHOCYTES % (AUTO) 24 % (12-44); MEAN CORPUSCULAR HEMOGLOBIN 29 pg (25-34); MEAN CORPUSCULAR HGB CONC 33 g/dL (32-36); MEAN CORPUSCULAR VOLUME 87 fL (80-99); MEAN PLATELET VOLUME 10.5 fL (9.0-12.2); MONOCYTES # (AUTO) 1.2 10^3/uL (0.0-1.0); MONOCYTES % (AUTO) 9 % (0-12); NEUTROPHILS # (AUTO) 8.3 10^3/uL (1.8-7.8); NEUTROPHILS % (AUTO) 64 % (42-75); PLATELET COUNT 364 10^3/uL (130-400); WHITE BLOOD COUNT 12.9 10^3/uL (4.3-11.0)
[2022-05-12 09:09] LABS: ALBUMIN 3.5 GM/DL (3.2-4.5); POTASSIUM 4.4 MMOL/L (3.6-5.0)
[2022-05-12 09:12] LABS: TOTAL PROTEIN 7.4 GM/DL (6.4-8.2)
[2022-05-12 09:14] LABS: BILIRUBIN,TOTAL 0.4 MG/DL (0.1-1.0)
[2022-05-12 09:15] LABS: CREATININE SERUM 1.52 MG/DL (0.60-1.30)
[2022-05-12 09:19] LABS: MAGNESIUM 1.5 MG/DL (1.6-2.4)
--- NOTE | 2022-05-12 09:50 | Diagnostic Imaging Report ---
INDICATION: Crackles. Time of Exam: 9:42 AM Correlation is made with prior chest of 10/24/2014. FINDINGS: The heart size is normal. The pulmonary vascularity is unremarkable. The lungs are clear. No infiltrate, effusion or pneumothorax is detected. IMPRESSION: No acute cardiopulmonary process is detected. Dictated by: Dictated on workstation # [id number]
[2022-05-12 10:42] LABS: FREE T4 (FREE THYROXINE) 1.18 NG/DL (0.70-1.48)
[2022-05-12] MEDS ORDERED: lisINopril 5 MG (PRINIVIL) TABLET PO ONE (11:30)
--- NOTE | 2022-05-12 12:23 | Diagnostic Imaging Report ---
INDICATION: Hand injury post fall. TECHNIQUE: Three views of the right hand. CORRELATION STUDY: None. FINDINGS: There are multifocal degenerative changes, particularly through the interphalangeal joints. The alignment is overall anatomic. There is no evidence for an acute fracture. Soft tissue vascular calcifications. There is a punctate, metallic-like density at the mid aspect of the index finger. Vascular calcifications are also present. IMPRESSION: 1. Negative for acute bony abnormality of the hand. 2. Punctate, perhaps metallic density in the soft tissues of the index finger. Dictated by: Dictated on workstation # [id number]
--- NOTE | 2022-05-12 13:07 | Diagnostic Imaging Report ---
PROCEDURE: MRI lumbar spine. TECHNIQUE: Multiplanar, multisequence MRI of the lumbar spine was performed without contrast. INDICATION: Recurrent falls. COMPARISON: No prior studies are available for comparison. Curvature of the lumbar spine is normal. There is significant compression fracture deformity involving the T12 vertebral body. There is diffuse marrow edema present. There is some very mild retropulsion as well at this level producing mild narrowing of the canal. The lumbar vertebrae showed normal stature and normal marrow signal. There is some generalized degenerative disc disease with variable disc space narrowing and desiccation noted. The conus is unremarkable at T12-L1 level. T12-L1: Disc/osteophyte complex indents the ventral thecal sac. There is narrowing of the lateral recesses bilaterally. There is also significant bilateral neural foraminal stenosis. L1-S2: Central canal is patent. Lateral recesses are narrowed. Neural foramina appear patent. L2-L3: Ligamentous thickening and facet changes with broad-based disc/osteophyte complexes noted. There is some very mild trefoil narrowing of the canal. Lateral recesses are significantly narrowed bilaterally. There is mild bilateral neural foraminal narrowing. L3-L4: There is some broad-based disc/osteophyte complex as well as ligamentous thickening and facet changes but the central canal is patent. There is narrowing of the lateral recesses bilaterally. Mild bilateral neural foraminal narrowing is noted. L4-L5: Broad-based disc/osteophyte complex flattens the ventral thecal sac but central canal remains patent. There is narrowing of the lateral recesses bilaterally. There is moderate bilateral neural foraminal narrowing. L5-S1: Central canal is widely patent. Neural foramina are widely patent. Paraspinous tissues are unremarkable. IMPRESSION: 1. Acute compression fracture at the T12 vertebral body with mild retropulsion and resultant mild central canal narrowing. 2. Normal appearing lumbar vertebrae. There is multilevel lumbar spondylosis with multilevel central canal, lateral recess and neuroforaminal stenosis described level by level above. Dictated by: Dictated on workstation # [id number]
[2022-05-12] MEDS ORDERED: MAGNESIUM 1 GM/100 ML IVPB 100 ML IV ONE (14:00)
[2022-05-12] MEDS ORDERED: cefTRIAXone 1 GM PRE-MIX 50 ML IV STA (14:00)
--- NOTE | 2022-05-12 14:06 | ED General ---
General Chief Complaint: General Problems/Pain Stated Complaint: WEAK Nursing Triage Note: C/O WEAKNESS, TODAY AND EMS STATES WAS TOO WEAK TO BEAR WEIGHT AT HOME. PATIENT STATES HE FELL AT HOME AGAIN TODAY BUT DENIES HITTING HIS HEAD. PATIENT IS ALERT AN ORIENTED X3. EMS REPORT STATES HE WAS HERE YESTERDAY AND DID NOT WANT TO BE ADMITTED TO THE HOSPITAL SO PATIENT WENT HOME. PATIENT REPORTS HAVING A FALL YESTERDAY WELL WHERE HE HIT HIS HEAD, PATIENT WAS WORKED UP IN THE ED YESTERDAY. Source of Information: Patient, EMS Notes Reviewed Exam Limitations: No Limitations History of Present Illness Date Seen by Provider: May 12, 2022 Time Seen by Provider: 08:28 Initial Comments This is 71-year-old gentleman presents to the emergency room with primary complaint of severe weakness. He was still weak today was not able to bear weight and walk on his own. Historically, he has been able to ambulate with a cane. He has had progressive decline in his ambulation over the past couple of weeks and has had multiple falls. He did fall yesterday and presented to the emergency room. CT of the head was obtained but he did not have any spine tenderness and spine imaging was not performed at that time. Patient is additionally noted to be rather hypertensive today. He was started on low-dose lisinopril yesterday and has not taken his dose yet today. Patient also complained of some chest discomfort. Review of his chart notes prior history of esophageal dysmotility. He states this primarily occurs after eating. Patient had acute kidney injury during his ER visit yesterday. He was hydrated with IV fluids. Admission was discussed with the patient yesterday and offered. Patient did not want to be admitted and ultimately was discharged home. Symptoms did not improve today despite receiving IV hydration. Allergies and Home Medications Allergies Coded Allergies: choline fenofibrate (Verified Allergy, Unknown, 12/07/17) gemfibrozil (Verified Allergy, Unknown, 12/07/17) niacin (Verified Allergy, Unknown, 12/07/17) pioglitazone (Verified Allergy, Unknown, 12/07/17) Patient Home Medication List Home Medication List Reviewed: Yes Albuterol Sulfate (Proair Hfa) 1 Puff Puff, 2 PUFF IH Q4H PRN for SHORTNESS OF BREATH, (Reported) Entered as Reported by: ANEESH CORREA on 7/1/22 1621 Last Action: Reviewed Alirocumab (Praluent Pen) 75 Mg/Ml Pen.injctr, 75 MG INJ EVERY 2 WEEKS, (Reported) Entered as Reported by: ANEESH CORREA on 05/12/221620 Last Action: Reviewed Aspirin (Aspirin EC) 81 Mg Tablet.dr, 81 MG PO DAILY, (Reported) Entered as Reported by: ANEESH CORREA on 05/12/221620 Last Action: Reviewed Colesevelam HCl (Welchol) 625 Mg Tablet, 625 MG PO DAILY, (Reported) Entered as Reported by: ROSMERY MENSAH on 12/07/17 0941 Last Action: Reviewed Colesevelam HCl (Welchol) 625 Mg Tablet, 625 MG PO DAILY PRN for LOOSE STOOLS, (Reported) Entered as Reported by: ANEESH CORREA on 05/12/221620 Last Action: Reviewed Hydrocodone/Acetaminophen (Hydrocodone-Acetamin 5-325 mg) 5 Mg-325 Mg Tablet, 1 EA PO Q8H PRN for PAIN-MODERATE (5-7), (Reported) Entered as Reported by: ANEESH CORREA on 05/12/221620 Last Action: Reviewed Insulin Aspart (Novolog Flexpen) 100 Unit/Ml (3 Ml) Solution, 10 UNITS SQ AC, (Reported) Entered as Reported by: ANEESH CORREA on 05/12/221620 Last Action: Reviewed Insulin Degludec (Tresiba Flextouch U-200) 200 Unit/Ml (3 Ml) Insuln.pen, 70 UNITS SC DAILY, (Reported) Entered as Reported by: ANEESH CORREA on 05/12/221620 Last Action: Reviewed Levothyroxine Sodium (Levothyroxine Sodium) 125 Mcg Tablet, 125 MCG PO DAILY, (Reported) Entered as Reported by: ANEESH CORREA on 05/12/221620 Last Action: Reviewed Lisinopril (Lisinopril) 2.5 Mg Tablet, 2.5 MG PO DAILY, (Reported) Entered as Reported by: ANEESH CORREA on 05/12/221620 Last Action: Reviewed Metoclopramide HCl (Metoclopramide HCl) 10 Mg Tablet, 10 MG PO DAILY, (Reported) Entered as Reported by: ANEESH CORREA on 05/12/221620 Last Action: Reviewed Mirabegron (Myrbetriq) 50 Mg Tab.er.24h, 50 MG PO DAILY, (Reported) Entered as Reported by: ANEESH CORREA on 05/12/22 162 Last Action: Reviewed Omeprazole (Omeprazole) 20 Mg Capsule.dr, 20 MG PO HS PRN for HEARTBURN, (Reported) Entered as Reported by: ANEESH CORREA on 05/12/22 162 Last Action: New Order Venlafaxine HCl (Venlafaxine HCl) 75 Mg Tab, 75 MG PO DAILY, (Reported) Entered as Reported by: ROSMERY MENSAH on 12/07/17 0941 Last Action: Reviewed Discontinued Medications Docusate Sodium (Colace) 100 Mg Capsule, 100 MG PO BID Discontinued Reason: No Longer Taking Prescribed by: KATTY PACK on 12/13/17 1100 Last Action: Discontinued Insulin Determir (Levemir) 1,000 Units/10 Ml Soln, 100 UNITS SQ BID, (Reported) Discontinued Reason: No Longer Taking Entered as Reported by: ROSMERY MENSAH on 12/07/17 0941 Last Action: Discontinued Levothyroxine Sodium (Levothyroxine Sodium) 75 Mcg Tablet, 75 MCG PO DAILY, (Reported) Discontinued Reason: No Longer Taking Entered as Reported by: ROSMERY MENSAH on 12/10/17 1604 Last Action: Discontinued Lisinopril (Lisinopril) 2.5 Mg Tablet, 2.5 MG PO DAILY Discontinued Reason: No Longer Taking Prescribed by: PAWEL SUERO on 05/11/22 1435 Last Action: Discontinued Metformin HCl (Metformin HCl) 500 Mg Tablet, 500 MG PO BID, (Reported) Discontinued Reason: No Longer Taking Entered as Reported by: ROSMERY MENSAH on 12/07/17 09 Last Action: Discontinued Review of Systems Review of Systems Constitutional: see HPI EENTM: no symptoms reported Respiratory: no symptoms reported Cardiovascular: see HPI Gastrointestinal: see HPI Genitourinary: no symptoms reported Musculoskeletal: see HPI Skin: no symptoms reported Psychiatric/Neurological: See HPI Hematologic/Lymphatic: No Symptoms Reported Immunological/Allergic: no symptoms reported Past Vcrpout-Xhynbf-Igqwle Hx Patient Social History Tobacco Use?: No Use of E-Cig and/or Vaping dev: No Substance use?: No Alcohol Use?: No Pt feels they are or have been: No Immunizations Up To Date Tetanus Booster (TDap): More than 5yrs PED Vaccines UTD: No First/Initial COVID19 Vaccinat: NO Second COVID19 Vaccination Ben: NO Seasonal Allergies Seasonal Allergies: Yes Past Medical History Surgeries: Yes (hemmorhoids removed, CATARACTS, WRIST FX) Eye Surgery, Gallbladder, Orthopedic Respiratory: Yes Pneumonia, Sleep Apnea, COPD Currently Using CPAP: No Cardiac: Yes High Cholesterol Neurological: Yes Neuropathy, Parkinson's Disease Reproductive Disorders: No Sexually Transmitted Disease: No HIV/AIDS: No Genitourinary: No Gastrointestinal: Yes Gastroesophageal Reflux, Chronic Constipation, Hemorrhoids, Chronic Diarrhea, Irritable Bowel Musculoskeletal: Yes Arthritis, Chronic Back Pain, Fractures Endocrine: Yes (Type II) Diabetes, 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 Hearing Impairment: Denies Cancer: No Psychosocial: Yes Anxiety, Depression Integumentary: No Blood Disorders: No Adverse Reaction/Blood Tranf: No (N/A) Family Medical History Alcoholism G8 BROTHER G8 BROTHER Alzheimer's disease 19 MOTHER Arthritis 19 FATHER 19 MOTHER Asthma 19 FATHER Cataracts 19 FATHER 19 MOTHER G8 BROTHER G8 BROTHER G8 SISTER G8 SISTER G8 SISTER Completed stroke 19 FATHER G8 SISTER Deafness or hearing loss G8 BROTHER Diabetes mellitus 19 FATHER 19 MOTHER G8 BROTHER G8 BROTHER G8 BROTHER G8 SISTER G8 SISTER G8 SISTER Hypertension 19 FATHER 19 MOTHER G8 BROTHER G8 BROTHER G8 BROTHER G8 BROTHER G8 SISTER G8 SISTER G8 SISTER G8 SISTER G8 SISTER G8 SISTER G8 SISTER Respiratory disorder G8 BROTHER No Family History of: AIDS Abdominal aortic aneurysm Jasper's disease Aphasia Cancer of mouth Cardiovascular disease Colon cancer Congenital disease Congenital heart disease Coronary thrombosis Cystic fibrosis Dementia Drug abuse Dysphasia Fibrocystic disease of breast Gastroenteritis Glaucoma Headache disorder Hypercholesterolemia Infertility Kidney disease Myocardial infarction Neoplasm Not obtainable due to adoption Osteoporosis Parkinson's disease Prostate cancer Psychosocial problem Seizure disorder Severe allergy Thyroid disease Tuberculosis Visual disorder Hypertension Physical Exam Vital Signs Vital Signs - First Documented 05/12/22 08:40 Temp 36.2 Pulse 85 Resp 18 B/P (MAP) 190/89 (122) Pulse Ox 95 O2 Delivery Room Air Capillary Refill : Less Than 3 Seconds Height, Weight, BMI Height: 5'10.00" Weight: 161lbs. 4.0oz. 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 Norm as Tested, Motor Weakness (Generalized weakness of the lower extremities without paralysis, right weaker than left) Skin: Normal Color, Warm/Dry Progress/Results/Core Measures Suspected Sepsis SIRS Temperature: Pulse: 85 Respiratory Rate: 18 Laboratory Tests 05/12/22 08:40: White Blood Count 12.9H Blood Pressure 190 /89 Mean: 122 Laboratory Tests 05/12/22 08:40: Creatinine 1.52H, Platelet Count 364, Total Bilirubin 0.4 Results/Orders Lab Results Laboratory Tests Test 05/12/22 08:40 05/12/22 08:42 05/12/22 10:11 05/12/22 10:30 Range/Units White Blood Count 12.9 H 4.3-11.0 10^3/uL Red Blood Count 3.78 L 4.30-5.52 10^6/uL Hemoglobin 10.9 L 13.3-17.7 g/dL Hematocrit 33 L 40-54 % Mean Corpuscular Volume 87 80-99 fL Mean Corpuscular Hemoglobin 29 25-34 pg Mean Corpuscular Hemoglobin Concent 33 32-36 g/dL Red Cell Distribution Width 13.2 10.0-14.5 % Platelet Count 364 130-400 10^3/uL Mean Platelet Volume 10.5 9.0-12.2 fL Immature Granulocyte % (Auto) 0 % Neutrophils (%) (Auto) 64 42-75 % Lymphocytes (%) (Auto) 24 12-44 % Monocytes (%) (Auto) 9 0-12 % Eosinophils (%) (Auto) 2 0-10 % Basophils (%) (Auto) 1 0-10 % Neutrophils # (Auto) 8.3 H 1.8-7.8 10^3/uL Lymphocytes # (Auto) 3.1 1.0-4.0 10^3/uL Monocytes # (Auto) 1.2 H 0.0-1.0 10^3/uL Eosinophils # (Auto) 0.2 0.0-0.3 10^3/uL Basophils # (Auto) 0.1 0.0-0.1 10^3/uL Immature Granulocyte # (Auto) 0.0 0.0-0.1 10^3/uL Sodium Level 134 L 135-145 MMOL/L Potassium Level 4.4 3.6-5.0 MMOL/L Chloride Level 101 98-107 MMOL/L Carbon Dioxide Level 22 21-32 MMOL/L Anion Gap 11 5-14 MMOL/L Blood Urea Nitrogen 24 H 7-18 MG/DL Creatinine 1.52 H 0.60-1.30 MG/DL Estimat Glomerular Filtration Rate 49 BUN/Creatinine Ratio 16 Glucose Level 244 H 70-105 MG/DL Calcium Level 9.0 8.5-10.1 MG/DL Corrected Calcium 9.4 8.5-10.1 MG/DL Magnesium Level 1.5 L 1.6-2.4 MG/DL Total Bilirubin 0.4 0.1-1.0 MG/DL Aspartate Amino Transf (AST/SGOT) 26 5-34 U/L Alanine Aminotransferase (ALT/SGPT) 26 0-55 U/L Alkaline Phosphatase 173 H 40-136 U/L Total Protein 7.4 6.4-8.2 GM/DL Albumin 3.5 3.2-4.5 GM/DL Troponin I < 0.028 <0.028 NG/ML C-Reactive Protein High Sensitivity 2.82 H 0.00-0.50 MG/DL Thyroid Stimulating Hormone (TSH) 2.89 0.35-4.94 UIU/ML Free Thyroxine 1.18 0.70-1.48 NG/DL Influenza Type A (RT-PCR) Not Detected Not Detecte Influenza Type B (RT-PCR) Not Detected Not Detecte SARS-CoV-2 RNA (RT-PCR) Not Detected Not Detecte Glucometer 242 H 70-110 MG/DL My Orders Orders - FLORA CAPELLAN MD Ekg Tracing (05/12/22 08:56) Monitor-Rhythm Ecg Trace Only (05/12/22 08:56) Cbc With Automated Diff (05/12/22 08:57) Comprehensive Metabolic Panel (05/12/22 08:57) Magnesium (05/12/22 08:57) Hs C Reactive Protein (05/12/22 09:26) Chest 1 View, Ap/Pa Only (05/12/22 09:26) Ua Culture If Indicated (05/12/22 09:26) Troponin I [place] (05/12/22 09:59) Thyroid Stimulating Hormone (05/12/22 09:59) Free T4 (Free Thyroxine) (05/12/22 09:59) Covid 19 Inhouse Test (05/12/22 09:59) Influenza A And B By Pcr (05/12/22 09:59) Cho 60g/M 1snack (16-2000 Dean) (05/12/22 Lunch) Lisinopril Tablet (Zestril Tablet) (05/12/22 11:30) Mri Lumbar Spine W/O Contrast (05/12/22 11:56) Hand, Right, 3 Views (05/12/22 11:57) Magnesium 1 Gm/100 Ml Ivpb (Magnesium Adame (05/12/22 14:00) Ceftriaxone 1 Gm Pre-Mix (Rocephin 1 Gm (05/12/22 14:00) Ed Admission (Communication) (05/12/22 14:32) Medications Given in ED Current Medications Medications Dose Ordered Sig/Jing Route Start Time Stop Time Status Last Admin Dose Admin Lisinopril 2.5 mg ONCE ONCE PO 05/12/22 11:30 05/12/22 11:31 DC 05/12/22 11:30 2.5 MG Magnesium Sulfate/ Dextrose 100 ml @ 100 mls/hr ONCE ONCE IV 05/12/22 14:00 05/12/22 14:59 DC 05/12/22 15:16 100 MLS/HR Vital Signs/I&O 05/12/22 08:40 Temp 36.2 Pulse 85 Resp 18 B/P (MAP) 190/89 (122) Pulse Ox 95 O2 Delivery Room Air Capillary Refill : Less Than 3 Seconds Blood Pressure Mean: 122 Progress Note : Time: 14:01 Progress Note Patient's initial work-up with labs was unremarkable compared with prior and renal function had improved some from yesterday. There was mild hypomagnesia noted. When patient's arrived, she describes a more progressive problem with lower extremity weakness to the extent he is no longer able to walk independently whereas he previously walked with a cane. Additionally he has had multiple falls recently. Yesterday it was noted that he did not have any significant pain or tenderness in the thoracic or lumbar spine, today he reports that he did have significant pain after falling yesterday. He describes pain and tenderness in the lumbar spine. He has not had any prior spine CT or MRI imaging done at this facility. I offered the MRI as further evaluation in the ER here which he accepted. MRI demonstrated neuroforaminal and central canal disease as well as degenerative disease at multiple levels throughout the T12-S1 region. Most notably, he has a significant compression fracture at T12 causing mild retropulsion and mild central canal stenosis. His MRI findings were discussed with Dr. Hester at [facility]. She did not believe his MRI findings would account for his lower extremity weakness and would not require emergent transfer. She suspects that his debility is more likely related to another etiology such as neuropathy. Outpatient neurosurgical referral was recommended after acute admission. Also in the meantime, it was noted that he has developed redness and swelling of the right hand which he did not report earlier. His reports this has been worsening over the last 2 days. He does have an abrasion on the dorsal aspect of the hand and extensive ecchymosis of the thumb. Patient states his neuropathy prevents him from feeling much with these types of injuries. X-ray of the hand was obtained which showed no fractures. I am concerned that he has cellulitis in that right. He also had an increase in WBC from 8.7 yesterday to 12.9 today. Rocephin is being administered for treatment of suspected cellulitis. Cardiac work-up to evaluate his chest pain was unremarkable. His chest pain is likely secondary to his esophageal problems. Case was reviewed with Dr. Pack as trauma surgeon on- call. The nature of the compression fracture was already discussed with Dr. Thierry stearns. No acute treatments are needed from a neurosurgical perspective and there are no other traumatic injuries requiring inpatient surgical consult for trauma. Patient may follow-up with neurosurgery in the outpatient setting. He is being admitted for constellation of medical problems and debility rather than a primary trauma problem. ECG Initial ECG Impression Date: May 12, 2022 Initial ECG Impression Time: 09:06 Initial ECG Rate: 91 Initial ECG Rhythm: Normal Sinus Initial ECG Intervals: Normal Initial ECG Impression: Normal Comment Normal sinus rhythm with no ST elevation or depression. No abnormal intervals or axis deviation Diagnostic Imaging Diagonstic Imaging: Xray Plain Films/CT/US/NM/MRI: chest Comments NAME: SRAVANI ARTEAGA [facility] REC#: [id number] PT STATUS: REG ER : 1950 PHYSICIAN: FLORA CAPELLAN MD ADMIT DATE: 05/12/22/ER Draft Date of Exam:05/12/22 CHEST 1 VIEW, AP/PA ONLY INDICATION: Crackles. Time of Exam: 9:42 AM Correlation is made with prior chest of 10/24/2014. FINDINGS: The heart size is normal. The pulmonary vascularity is unremarkable. The lungs are clear. No infiltrate, effusion or pneumothorax is detected. IMPRESSION: No acute cardiopulmonary process is detected. Dictated on workstation # [id number] Dict: 05/12/22 0942 Trans: 05/12/22 0949 [facility] [id number] Interpreted by: THELMA AYALA MD Diagonstic Imaging: MRI Plain Films/CT/US/NM/MRI: other (Lumbar spine) Comments MRI lumbar spine viewed by me and report reviewed. See report below: NAME: SRAVANI ARTEAGA [facility] REC#: [id number] PT STATUS: REG ER : 1950 PHYSICIAN: FLORA CAPELLAN MD ADMIT DATE: 05/12/22/ER Draft Date of Exam:05/12/22 MRI LUMBAR SPINE W/O CONTRAST PROCEDURE: MRI lumbar spine. TECHNIQUE: Multiplanar, multisequence MRI of the lumbar spine was performed without contrast. INDICATION: Recurrent falls. COMPARISON: No prior studies are available for comparison. Curvature of the lumbar spine is normal. There is significant compression fracture deformity involving the T12 vertebral body. There is diffuse marrow edema present. There is some very mild retropulsion as well at this level producing mild narrowing of the canal. The lumbar vertebrae showed normal stature and normal marrow signal. There is some generalized degenerative disc disease with variable disc space narrowing and desiccation noted. The conus is unremarkable at T12-L1 level. T12-L1: Disc/osteophyte complex indents the ventral thecal sac. There is narrowing of the lateral recesses bilaterally. There is also significant bilateral neural foraminal stenosis. L1-S2: Central canal is patent. Lateral recesses are narrowed. Neural foramina appear patent. L2-L3: Ligamentous thickening and facet changes with broad-based disc/osteophyte complexes noted. There is some very mild trefoil narrowing of the canal. Lateral recesses are significantly narrowed bilaterally. There is mild bilateral neural foraminal narrowing. L3-L4: There is some broad-based disc/osteophyte complex as well as ligamentous thickening and facet changes but the central canal is patent. There is narrowing of the lateral recesses bilaterally. Mild bilateral neural foraminal narrowing is noted. L4-L5: Broad-based disc/osteophyte complex flattens the ventral thecal sac but central canal remains patent. There is narrowing of the lateral recesses bilaterally. There is moderate bilateral neural foraminal narrowing. L5-S1: Central canal is widely patent. Neural foramina are widely patent. Paraspinous tissues are unremarkable. IMPRESSION: 1. Acute compression fracture at the T12 vertebral body with mild retropulsion and resultant mild central canal narrowing. 2. Normal appearing lumbar vertebrae. There is multilevel lumbar spondylosis with multilevel central canal, lateral recess and neuroforaminal stenosis described level by level above. Dictated on workstation # [id number] Dict: 05/12/22 1258 Trans: 05/12/22 1306 [facility] [id number] Interpreted by: THELMA AYALA MD Diagonstic Imaging: Xray Plain Films/CT/US/NM/MRI: hand Comments NAME: SRAVANI ARTEAGA [facility] REC#: [id number] PT STATUS: REG ER : 1950 PHYSICIAN: FLORA CAPELLAN MD ADMIT DATE: 05/12/22/ER Signed Date of Exam:05/12/22 HAND, RIGHT, 3 VIEWS INDICATION: Hand injury post fall. TECHNIQUE: Three views of the right hand. CORRELATION STUDY: None. FINDINGS: There are multifocal degenerative changes, particularly through the interphalangeal joints. The alignment is overall anatomic. There is no evidence for an acute fracture. Soft tissue vascular calcifications. There is a punctate, metallic-like density at the mid aspect of the index finger. Vascular calcifications are also present. IMPRESSION: 1. Negative for acute bony abnormality of the hand. 2. Punctate, perhaps metallic density in the soft tissues of the index finger. Dictated by: Dictated on workstation # [id number] Dict: 05/12/22 1216 Trans: 05/12/22 1413 [id number] Interpreted by: BRENDAN VEE DO Electronically signed by: BRENDAN VEE DO 05/12/22 1413 Departure Communication (Admissions) Time/Spoke to Admitting Phy: 14:14 Dr. Jiang Impression Primary Impression: Compression fracture of T12 vertebra Qualified Codes: S22.080A - Wedge compression fracture of T11-T12 vertebra, initial encounter for closed fracture Additional Impressions: Cellulitis of right hand Frequent falls Lower extremity weakness Qualified Codes: R29.898 - Other symptoms and signs involving the musculoskeletal system Hypertension Qualified Codes: I10 - Essential (primary) hypertension Hypomagnesemia Disposition: ADMITTED INPATIENT Condition: Stable Admissions Decision to Admit Reason: Admit from ER (General) Decision to Admit/Date: May 12, 2022 Time/Decision to Admit Time: 14:14 Departure-Patient Inst. Referrals: REINALDO HASSAN MD (PCP/Family) Primary Care Physician FLORA CAPELLAN MD May 12, 2022 14:06
[2022-05-12 15:54] LABS: BILIRUBIN,URINE NEGATIVE (NEGATIVE); CLARITY,URINE CLEAR; COLOR,URINE YELLOW; GLUCOSE, URINE (UA) 2+ (NEGATIVE); KETONES,URINE NEGATIVE (NEGATIVE); LEUKOCYTE ESTERASE ,URINE NEGATIVE (NEGATIVE); NITRITE,URINE NEGATIVE (NEGATIVE); PH,URINE 5.5 (5-9); PROTEIN,URINE 2+ (NEGATIVE)
[2022-05-12 16:10] LABS: BACTERIA,URINE FEW /HPF; RBC,URINE 0-2 /HPF; WBC,URINE 0-2 /HPF
[2022-05-12] MEDS ORDERED: ANTACID SUSP 30 ML UDC (MYLANTA) PO PRN (16:15)
[2022-05-12] MEDS ORDERED: ONDANSETRON 4 MG (ZOFRAN) ORAL DISSOLVE TAB PO PRN (16:15)
[2022-05-12] MEDS ORDERED: HYDROmorphone 2 MG/ML VIAL (DILAUDID) IVP PRN (16:15)
[2022-05-12] MEDS ORDERED: LACTULOSE SYRUP 10GM/15ML (ENULOSE) 30ML UDC PO PRN (16:15)
[2022-05-12] MEDS ORDERED: polyethylene glycoL POWDER 17 GM (MIRALAX) PACK PO PRN (16:15)
[2022-05-12] MEDS ORDERED: ONDANSETRON 4 MG/2 ML (SDV) Z0FRAN IV PRN (16:15)
[2022-05-12] MEDS ORDERED: LIDOCAINE UROJET 2% GEL 10 ML PKG TOP NR (16:15)
[2022-05-12] MEDS ORDERED: diphenhydrAMINE 50 MG/ML INJ (BENADRYL) IVP PRN (16:15)
[2022-05-12] MEDS ORDERED: hydrALAZINE (APRESOLINE) 25 MG TAB PO PRN (16:15)
[2022-05-12] MEDS ORDERED: MILK OF MAGNESIA 400 MG/5 ML 30 ML UDC PO PRN (16:15)
[2022-05-12] MEDS ORDERED: CALCIUM CARBONATE 500 MG (TUMS) TAB.CHEW PO PRN (16:15)
[2022-05-12] MEDS ORDERED: BISACODYL 10 MG SUPP (DULCOLAX) PR PRN (16:15)
[2022-05-12] MEDS ORDERED: MELATONIN 3 MG TABLET PO PRN (16:15)
[2022-05-12] MEDS ORDERED: diphenhydrAMINE 25 MG TAB (BENADRYL) PO PRN (16:15)
[2022-05-12] MEDS ORDERED: ACHD5005 PO (16:21)
[2022-05-12] MEDS ORDERED: LISI2.5T13 PO (16:21)
[2022-05-12] MEDS ORDERED: INSU100I14 SQ (16:21)
[2022-05-12] MEDS ORDERED: LEVO125T6 PO (16:21)
[2022-05-12] MEDS ORDERED: INSU200I4 SC (16:21)
[2022-05-12] MEDS ORDERED: MTC10T PO (16:21)
[2022-05-12] MEDS ORDERED: OMEP20CA18 PO (16:21)
[2022-05-12] MEDS ORDERED: MIRA50TA PO (16:21)
[2022-05-12] MEDS ORDERED: ALIR75PE5 INJ (16:21)
[2022-05-12] MEDS ORDERED: COLE625T9 PO (16:21)
[2022-05-12] MEDS ORDERED: RT-ALBUINH IH (16:21)
[2022-05-12] MEDS ORDERED: ASPI-1238 PO (16:21)
[2022-05-12] MEDS ORDERED: polyethylene glycoL POWDER 17 GM (MIRALAX) PACK PO NR (16:30)
[2022-05-12] MEDS ORDERED: SENNA W/DOCUSATE (SENOKOT S) TABLET PO NR (16:30)
[2022-05-12] MEDS ORDERED: amLODIPine 5 MG (NORVASC) TAB PO NR (16:30)
[2022-05-12] MEDS ORDERED: RT-ALBUTEROL SULF 2.5 MG/3 ML PRE-MIX VIAL INH PRN (16:45)
[2022-05-12] MEDS: ENOXAPARIN 40 MG/0.4 ML (LOVENOX) SYR SC SCH (16:55)
[2022-05-12] MEDS: NS IV 1000 ML 1,000 ML IV SCH (16:55)
[2022-05-12] MEDS ORDERED: LIDOCAINE UROJET 2% GEL 10 ML PKG TOP ONE (19:30)
[2022-05-12] MEDS: DOCUSATE SODIUM 100 MG (COLACE) CAP PO SCH (20:33)
[2022-05-12] MEDS: cloNIDine 0.1 MG (CATAPRES) TAB PO PRN (20:33)
[2022-05-12] MEDS: SENNOSIDES 8.6 MG (SENOKOT) TAB PO SCH (20:33)
[2022-05-12] MEDS: inSUlin ASPART (NovoLOG) 1 UNIT/0.01 ML (CHARGE PER UNIT) SC SCH (20:34)
[2022-05-13] VITALS (7 sets, daily range): BP systolic 121–193; BP diastolic 60–86
[2022-05-13] MEDS: NS IV 1000 ML 1,000 ML IV SCH ×2 (04:17→16:30)
--- NOTE | 2022-05-13 05:11 | History & Physical-Hospitalist ---
History of Present Illness HPI/Chief Complaint CC: Compression Fracture with Severe Debility HPI: This is a 71yoM with history of Dementia with poor recall presented with Lumbar Compression Fracture with Severe Pain and can't ambulate. MRI showed the L2 compression fracture with retropulsion, but Neurosurgeon Dr. Marti assessed that to not be any spinal cord emergency. He did have elevated blood pressure. Gaffney Catheter was placed 1000cc's out and he has much improved status. Blood pressure is now normal. Patient has significant Dementia issues he will need N ursing Home. Source: patient Date Seen 05/13/22 Time Seen by a Provider: 05:15 Attending Physician Vinh Paulino MD PCP Admitting Physician: Kallie Vargas DO Attending Physician: Kallie Vargas DO Referring Physician Date of Admission May 12, 2022 at 14:34 Home Medications & Allergies Home Medications Reviewed patient Home Medication Reconciliation performed by pharmacy medication reconciliations laboratory technician and/or nursing. Patients Allergies have been reviewed. Allergies Allergies Coded Allergies choline fenofibrate (Verified Allergy, Unknown, 12/07/17) gemfibrozil (Verified Allergy, Unknown, 12/07/17) niacin (Verified Allergy, Unknown, 12/07/17) pioglitazone (Verified Allergy, Unknown, 12/07/17) Past [place] Hx Patient Social History Marrital Status: Employed/Student: retired Tobacco Use?: No Smoking Status: Unknown if Ever Smoked Use of E-Cig and/or Vaping dev: No Substance use?: No Alcohol Use?: No Pt feels they are or have been: No Immunizations Up To Date Date of Influenza Vaccine: Aug 24, 2020 First/Initial COVID19 Vaccinat: NO Second COVID19 Vaccination Ben: NO Tetanus Booster (TDap): Less Than 5 Years Hepatitis A: No Hepatitis B: No PED Vaccines UTD: No Date of Pneumonia Vaccine: Aug 21, 2016 Seasonal Allergies Seasonal Allergies: Yes Current Status Advance Directives: No Communicates: Verbally Primary Language: Faroese Preferred Spoken Language: Faroese Past Medical History Surgeries: Eye Surgery, Gallbladder, Orthopedic Pneumonia, Sleep Apnea, COPD Currently Using CPAP: No High Cholesterol Dementia, Neuropathy, Parkinson's Disease Sexually Transmitted Disease: No HIV/AIDS: No Gastroesophageal Reflux, Chronic Constipation, Hemorrhoids, Chronic Diarrhea, Irritable Bowel Arthritis, Chronic Back Pain, Fractures Diabetes, 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 Hearing Impairment: Denies Anxiety, Depression Blood Disorders: No Adverse Reaction/Blood Tranf: No (N/A) Diabetes mellitus Hypothyroidism Hypertension Surg Hx: eye surgery, cholecystectomy Family Medical History Alcoholism G8 BROTHER G8 BROTHER Alzheimer's disease 19 MOTHER Arthritis 19 FATHER 19 MOTHER Asthma 19 FATHER Cataracts 19 FATHER 19 MOTHER G8 BROTHER G8 BROTHER G8 SISTER G8 SISTER G8 SISTER Completed stroke 19 FATHER G8 SISTER Deafness or hearing loss G8 BROTHER Diabetes mellitus 19 FATHER 19 MOTHER G8 BROTHER G8 BROTHER G8 BROTHER G8 SISTER G8 SISTER G8 SISTER Hypertension 19 FATHER 19 MOTHER G8 BROTHER G8 BROTHER G8 BROTHER G8 BROTHER G8 SISTER G8 SISTER G8 SISTER G8 SISTER G8 SISTER G8 SISTER G8 SISTER Respiratory disorder G8 BROTHER No Family History of: AIDS Abdominal aortic aneurysm Britton's disease Aphasia Cancer of mouth Cardiovascular disease Colon cancer Congenital disease Congenital heart disease Coronary thrombosis Cystic fibrosis Dementia Drug abuse Dysphasia Fibrocystic disease of breast Gastroenteritis Glaucoma Headache disorder Hypercholesterolemia Infertility Kidney disease Myocardial infarction Neoplasm Not obtainable due to adoption Osteoporosis Parkinson's disease Prostate cancer Psychosocial problem Seizure disorder Severe allergy Thyroid disease Tuberculosis Visual disorder Hypertension Review of Systems Constitutional: see HPI, malaise, weakness EENTM: no symptoms reported Respiratory: no symptoms reported Cardiovascular: no symptoms reported Gastrointestinal: no symptoms reported Genitourinary: decreased output Musculoskeletal: back pain Skin: no symptoms reported Psychiatric/Neurological: Other Physical Exam Physical Exam Vital Signs Vital Signs - First Documented 05/12/22 08:40 Temp 36.2 Pulse 85 Resp 18 B/P (MAP) 190/89 (122) Pulse Ox 95 O2 Delivery Room Air Capillary Refill : Less Than 3 Seconds Height, Weight, BMI Height: 5'10.00" Weight: 161lbs. 4.0oz. [id number]; 27.10 BMI Method:Stated General Appearance: No Apparent Distress, Chronically ill Eyes: Right Eye Normal Inspection, Right Eye PERRL HEENT: PERRL/EOMI, Normal ENT Inspection, Pharynx Normal, Moist Mucous M embranes Neck: Full Range of Motion, Normal Inspection, Non Tender Respiratory: Chest Non Tender, Lungs Clear, Normal Breath Sounds, No Accessory Muscle Use, No Respiratory Distress Cardiovascular: Regular Rate, Rhythm, No Edema, No Gallop, No JVD, No Murmur, Normal Peripheral Pulses Gastrointestinal: Normal Bowel Sounds, No Organomegaly, No Pulsatile Mass, Non Tender, Soft Back: CVA Tenderness (L), CVA Tenderness (R), Decreased Range of Motion, Muscle Spasm, Vertebral Tenderness Extremity: Normal Capillary Refill, Normal Inspection, Normal Range of Motion, Non Tender, No Calf Tenderness, No Pedal Edema Neurologic/Psychiatric: Alert, No Motor/Sensory Deficits, Normal Mood/Affect, Disoriented, Motor Weakness (All extremities 4/5) Skin: Normal Color, Warm/Dry Lymphatic: No Adenopathy Results Results/Procedures Labs Laboratory Tests 05/12/22 08:40 05/13/22 05:28 Patient resulted labs reviewed. Assessment/Plan Admission Diagnosis Assessment: T12 compression fracture Immobile Urinary retention requiring Gaffney catheter placement Parkinson's Dementia? Hypertension Hyperlipidemia Diabetes Plan: Pain control Supportive care Monitor closely Admission Status: Inpatient Order (span 2 midnights) Reason for Inpatient Admission: Immobile due to T12 compression fracture Diagnosis/Problems Diagnosis/Problems (1) Compression fracture of T12 vertebra Status: Acute Qualifiers: Encounter type: initial encounter Qualified Codes: S22.080A - Wedge compression fracture of T11-T12 vertebra, initial encounter for closed fracture (2) Urinary retention (3) Gaffney catheter in place (4) Dementia (5) Delirium (6) Frequent falls Status: Acute (7) Lower extremity weakness Status: Acute Qualifiers: Laterality: bilateral Qualified Codes: R29.898 - Other symptoms and signs involving the musculoskeletal system (8) Cellulitis of right hand Status: Acute (9) Hypertension Status: Acute Qualifiers: Hypertension type: primary hypertension Qualified Codes: I10 - Essential (primary) hypertension KALLIE VARGAS DO May 13, 2022 05:11
[2022-05-13] MEDS ORDERED: RT-ALBUTEROL SULF 2.5 MG/3 ML PRE-MIX VIAL IH PRN (05:15)
[2022-05-13 05:38] LABS: BASOPHILS # (AUTO) 0.1 10^3/uL (0.0-0.1); BASOPHILS % (AUTO) 1 % (0-10); EOSINOPHILS # (AUTO) 0.2 10^3/uL (0.0-0.3); EOSINOPHILS % (AUTO) 2 % (0-10); HEMATOCRIT 30 % (40-54); LYMPHOCYTES # (AUTO) 2.8 10^3/uL (1.0-4.0); LYMPHOCYTES % (AUTO) 30 % (12-44); MEAN CORPUSCULAR HEMOGLOBIN 29 pg (25-34); MEAN CORPUSCULAR HGB CONC 33 g/dL (32-36); MEAN CORPUSCULAR VOLUME 87 fL (80-99); MEAN PLATELET VOLUME 10.5 fL (9.0-12.2); MONOCYTES # (AUTO) 0.9 10^3/uL (0.0-1.0); MONOCYTES % (AUTO) 9 % (0-12); NEUTROPHILS # (AUTO) 5.4 10^3/uL (1.8-7.8); NEUTROPHILS % (AUTO) 58 % (42-75); PLATELET COUNT 309 10^3/uL (130-400); WHITE BLOOD COUNT 9.4 10^3/uL (4.3-11.0)
[2022-05-13 05:53] LABS: ALBUMIN 3.1 GM/DL (3.2-4.5); POTASSIUM 4.4 MMOL/L (3.6-5.0)
[2022-05-13 05:54] LABS: CALCIUM 8.7 MG/DL (8.5-10.1)
[2022-05-13 05:56] LABS: TOTAL PROTEIN 6.4 GM/DL (6.4-8.2)
[2022-05-13 05:57] LABS: BILIRUBIN,TOTAL 0.3 MG/DL (0.1-1.0)
[2022-05-13 05:59] LABS: CREATININE SERUM 1.59 MG/DL (0.60-1.30)
[2022-05-13] MEDS ORDERED: COLESEVELAM 625 MG PO PRN (06:00)
[2022-05-13] MEDS: LEVOTHYROXINE 125 MCG (LEVOTHROID) TABLET PO SCH (06:18)
[2022-05-13] MEDS: inSUlin ASPART (NovoLOG) 1 UNIT/0.01 ML (CHARGE PER UNIT) SC SCH ×4 (07:35→20:53)
[2022-05-13] MEDS: inSUlin ASPART (NovoLOG) 1 UNIT/0.01 ML (CHARGE PER UNIT) SQ SCH ×3 (07:35→18:23)
[2022-05-13] MEDS ORDERED: COLESEVELAM 625 MG PO SCH (09:00)
[2022-05-13] MEDS ORDERED: NON-FORMULARY MEDICATION 1 EA EA (Alirocumab (Praluent Pen) 75 MG) INJ SCH (09:00)
[2022-05-13] MEDS: SENNOSIDES 8.6 MG (SENOKOT) TAB PO SCH ×2 (09:05→20:00)
[2022-05-13] MEDS: VENlafaxine 75 MG (EFFEXOR) TAB PO SCH (09:05)
[2022-05-13] MEDS: lisINopril 5 MG (PRINIVIL) TABLET PO SCH (09:05)
[2022-05-13] MEDS: METOCLOPRAMIDE 10 MG (REGLAN) TAB PO SCH (09:05)
[2022-05-13] MEDS: ASPIRIN E.C. 81 MG (ECOTRIN) TAB PO SCH (09:05)
[2022-05-13] MEDS: amLODIPine 5 MG (NORVASC) TAB PO SCH (09:05)
[2022-05-13] MEDS: DOCUSATE SODIUM 100 MG (COLACE) CAP PO SCH ×2 (09:05→19:59)
[2022-05-13] MEDS: cefTRIAXone 1 GM PRE-MIX 50 ML IV SCH (09:05)
[2022-05-13] MEDS: MIRABEGRON 25 MG TAB (MYRBETRIQ) PO SCH (09:06)
[2022-05-13] MEDS: ENOXAPARIN 40 MG/0.4 ML (LOVENOX) SYR SC SCH (16:30)
[2022-05-13] MEDS: cloNIDine 0.1 MG (CATAPRES) TAB PO PRN (21:45)
[2022-05-14 03:43] VITALS: BP 123/68
[2022-05-14] MEDS: NS IV 1000 ML 1,000 ML IV SCH (04:14)
--- NOTE | 2022-05-14 05:28 | Progress Note - Hospitalist ---
Subjective HPI/CC On Admission Date Seen by Provider: May 14, 2022 Time Seen by Provider: 05:30 CC: Compression Fracture with Severe Debility HPI: This is a 71yoM with history of Dementia with poor recall presented with Lumbar Compression Fracture with Severe Pain and can't ambulate. MRI showed the L2 compression fracture with retropulsion, but Neurosurgeon Dr. Marti assessed that to not be any spinal cord emergency. He did have elevated blood pressure. Gaffney Catheter was placed 1000cc's out and he has much improved status. Blood pressure is now normal. Patient has significant Dementia issues he will need Retirement. Subjective/Events-last exam Patient doing a lot better at the bedside Blood pressure improved Gaffney catheter in place Checked meds labs No falls Review of Systems Genitourinary: Retention Musculoskeletal: back pain Objective Exam Vital Signs Vital Signs Date Time Temp Pulse Resp B/P (MAP) Pulse Ox O2 Delivery O2 Flow Rate FiO2 05/14/22 11:43 36.6 79 18 189/96 (127) 95 Room Air Capillary Refill : Less Than 3 Seconds General Appearance: No Apparent Distress, WD/WN, Chronically ill Respiratory: Lungs Clear, Normal Breath Sounds Cardiovascular: Regular Rate, Rhythm Neurologic/Psychiatric: Alert, No Motor/Sensory Deficits, Normal Mood/Affect, Depressed Affect, Disoriented Results/Procedures Lab Laboratory Tests 05/14/22 05:20 Patient resulted labs reviewed. Assessment/Plan Assessment and Plan Assess & Plan/Chief Complaint Assessment: T12 compression fracture Immobile Urinary retention requiring Gaffney catheter placement Parkinson's Dementia? Hypertension Hyperlipidemia Diabetes Plan: Pain control Supportive care Monitor closely Urinary retention management Diagnosis/Problems Diagnosis/Problems (1) Compression fracture of T12 vertebra Status: Acute Qualifiers: Encounter type: initial encounter Qualified Codes: S22.080A - Wedge compression fracture of T11-T12 vertebra, initial encounter for closed fracture (2) Urinary retention (3) Gaffney catheter in place (4) Dementia (5) Delirium (6) Frequent falls Status: Acute (7) Lower extremity weakness Status: Acute Qualifiers: Laterality: bilateral Qualified Codes: R29.898 - Other symptoms and signs involving the musculoskeletal system (8) Cellulitis of right hand Status: Acute (9) Hypertension Status: Acute Qualifiers: Hypertension type: primary hypertension Qualified Codes: I10 - Essential (primary) hypertension JOSE VARGAS DO May 14, 2022 05:28
[2022-05-14] MEDS: inSUlin ASPART (NovoLOG) 1 UNIT/0.01 ML (CHARGE PER UNIT) SC SCH ×4 (05:44→21:05)
[2022-05-14 05:53] LABS: BASOPHILS # (AUTO) 0.1 10^3/uL (0.0-0.1); BASOPHILS % (AUTO) 1 % (0-10); EOSINOPHILS # (AUTO) 0.3 10^3/uL (0.0-0.3); EOSINOPHILS % (AUTO) 3 % (0-10); HEMATOCRIT 29 % (40-54); HEMOGLOBIN 9.4 g/dL (13.3-17.7); LYMPHOCYTES # (AUTO) 3.2 10^3/uL (1.0-4.0); LYMPHOCYTES % (AUTO) 34 % (12-44); MEAN CORPUSCULAR HEMOGLOBIN 30 pg (25-34); MEAN CORPUSCULAR HGB CONC 33 g/dL (32-36); MEAN CORPUSCULAR VOLUME 90 fL (80-99); MEAN PLATELET VOLUME 10.6 fL (9.0-12.2); MONOCYTES # (AUTO) 0.8 10^3/uL (0.0-1.0); MONOCYTES % (AUTO) 9 % (0-12); NEUTROPHILS # (AUTO) 5.1 10^3/uL (1.8-7.8); NEUTROPHILS % (AUTO) 54 % (42-75); PLATELET COUNT 326 10^3/uL (130-400); WHITE BLOOD COUNT 9.5 10^3/uL (4.3-11.0)
[2022-05-14] MEDS: LEVOTHYROXINE 125 MCG (LEVOTHROID) TABLET PO SCH (05:53)
[2022-05-14 06:07] LABS: POTASSIUM 3.9 MMOL/L (3.6-5.0)
[2022-05-14 06:08] LABS: CALCIUM 8.7 MG/DL (8.5-10.1)
[2022-05-14 06:09] LABS: TOTAL PROTEIN 6.3 GM/DL (6.4-8.2)
[2022-05-14 06:11] LABS: BILIRUBIN,TOTAL 0.3 MG/DL (0.1-1.0)
[2022-05-14 06:13] LABS: CREATININE SERUM 1.2 MG/DL (0.60-1.30)
[2022-05-14 07:35] VITALS: BP 147/70
[2022-05-14] MEDS: DOCUSATE SODIUM 100 MG (COLACE) CAP PO SCH ×2 (07:38→22:33)
[2022-05-14] MEDS: SENNOSIDES 8.6 MG (SENOKOT) TAB PO SCH ×2 (07:38→22:33)
[2022-05-14] MEDS: cefTRIAXone 1 GM PRE-MIX 50 ML IV SCH (08:41)
[2022-05-14] MEDS: METOCLOPRAMIDE 10 MG (REGLAN) TAB PO SCH (08:42)
[2022-05-14] MEDS: VENlafaxine 75 MG (EFFEXOR) TAB PO SCH (08:42)
[2022-05-14] MEDS: amLODIPine 5 MG (NORVASC) TAB PO SCH (08:42)
[2022-05-14] MEDS: MIRABEGRON 25 MG TAB (MYRBETRIQ) PO SCH (08:42)
[2022-05-14] MEDS: lisINopril 5 MG (PRINIVIL) TABLET PO SCH (08:42)
[2022-05-14] MEDS: ASPIRIN E.C. 81 MG (ECOTRIN) TAB PO SCH (08:42)
[2022-05-14 11:43] VITALS: BP 189/96
[2022-05-14] MEDS: ACETAMINOPHEN 325 MG TABLET PO PRN (14:11)
[2022-05-14] MEDS: ENOXAPARIN 40 MG/0.4 ML (LOVENOX) SYR SC SCH (15:51)
[2022-05-14 15:56] VITALS: BP 136/70
[2022-05-14 20:15] VITALS: BP 155/80
[2022-05-14 23:18] VITALS: BP 192/90
[2022-05-14] MEDS: cloNIDine 0.1 MG (CATAPRES) TAB PO PRN (23:21)
[2022-05-15] VITALS (8 sets, daily range): BP systolic 134–186; BP diastolic 68–84
--- NOTE | 2022-05-15 05:33 | Progress Note - Hospitalist ---
Subjective HPI/CC On Admission Date Seen by Provider: May 15, 2022 CC: Compression Fracture with Severe Debility HPI: This is a 71yoM with history of Dementia with poor recall presented with Lumbar Compression Fracture with Severe Pain and can't ambulate. MRI showed the L2 compression fracture with retropulsion, but Neurosurgeon Dr. Marti assessed that to not be any spinal cord emergency. He did have elevated blood pressure. Gaffney Catheter was placed 1000cc's out and he has much improved status. Blood pressure is now normal. Patient has significant Dementia issues he will need Retirement. Subjective/Events-last exam Patient had a difficult night Sleeping currently Told the nurse he wanted to leave AMA but he cannot get out of bed PT and OT will be ordered Gaffney catheter still in place Loose stools incontinent Review of Systems General: Fatigue, Malaise Musculoskeletal: back pain Neurological: Confusion Objective Exam Vital Signs Vital Signs Date Time Temp Pulse Resp B/P (MAP) Pulse Ox O2 Delivery O2 Flow Rate FiO2 05/15/22 11:20 36.2 82 22 138/71 (93) 93 Room Air 05/15/22 10:10 21 Capillary Refill : Less Than 3 Seconds General Appearance: No Apparent Distress, WD/WN, Chronically ill Respiratory: Lungs Clear, Normal Breath Sounds, Decreased Breath Sounds Cardiovascular: Regular Rate, Rhythm Neurologic/Psychiatric: Other (Sleeping) Results/Procedures Lab Laboratory Tests 05/15/22 05:47 Patient resulted labs reviewed. Assessment/Plan Assessment and Plan Assess & Plan/Chief Complaint Assessment: T12 compression fracture Immobile Urinary retention requiring Gaffney catheter placement Parkinson's Dementia? Hypertension Hyperlipidemia Diabetes Plan: Pain control Supportive care Monitor closely Urinary retention management PT OT Diagnosis/Problems Diagnosis/Problems (1) Compression fracture of T12 vertebra Status: Acute Qualifiers: Encounter type: initial encounter Qualified Codes: S22.080A - Wedge compression fracture of T11-T12 vertebra, initial encounter for closed fracture (2) Urinary retention (3) Gaffney catheter in place (4) Dementia (5) Delirium (6) Frequent falls Status: Acute (7) Lower extremity weakness Status: Acute Qualifiers: Laterality: bilateral Qualified Codes: R29.898 - Other symptoms and signs involving the musculoskeletal system (8) Cellulitis of right hand Status: Acute (9) Hypertension Status: Acute Qualifiers: Hypertension type: primary hypertension Qualified Codes: I10 - Essential (primary) hypertension VARGAS,JOSE DO May 15, 2022 05:33
[2022-05-15 05:55] LABS: BASOPHILS % (AUTO) 0 % (0-10); EOSINOPHILS # (AUTO) 0.2 10^3/uL (0.0-0.3); EOSINOPHILS % (AUTO) 2 % (0-10); HEMATOCRIT 32 % (40-54); HEMOGLOBIN 10.6 g/dL (13.3-17.7); LYMPHOCYTES # (AUTO) 2.3 10^3/uL (1.0-4.0); LYMPHOCYTES % (AUTO) 23 % (12-44); MEAN CORPUSCULAR HEMOGLOBIN 29 pg (25-34); MEAN CORPUSCULAR HGB CONC 33 g/dL (32-36); MEAN CORPUSCULAR VOLUME 88 fL (80-99); MEAN PLATELET VOLUME 10.3 fL (9.0-12.2); MONOCYTES # (AUTO) 0.6 10^3/uL (0.0-1.0); MONOCYTES % (AUTO) 6 % (0-12); NEUTROPHILS # (AUTO) 6.8 10^3/uL (1.8-7.8); NEUTROPHILS % (AUTO) 68 % (42-75); PLATELET COUNT 400 10^3/uL (130-400)
[2022-05-15 06:06] LABS: ALBUMIN 3.4 GM/DL (3.2-4.5); POTASSIUM 4.7 MMOL/L (3.6-5.0)
[2022-05-15 06:08] LABS: CALCIUM 9.3 MG/DL (8.5-10.1)
[2022-05-15 06:09] LABS: TOTAL PROTEIN 7.3 GM/DL (6.4-8.2)
[2022-05-15 06:11] LABS: BILIRUBIN,TOTAL 0.4 MG/DL (0.1-1.0)
[2022-05-15 06:13] LABS: CREATININE SERUM 1.43 MG/DL (0.60-1.30)
[2022-05-15] MEDS: inSUlin ASPART (NovoLOG) 1 UNIT/0.01 ML (CHARGE PER UNIT) SC SCH ×4 (06:42→20:24)
[2022-05-15] MEDS: LEVOTHYROXINE 125 MCG (LEVOTHROID) TABLET PO SCH (06:42)
[2022-05-15] MEDS: METOCLOPRAMIDE 10 MG (REGLAN) TAB PO SCH (08:21)
[2022-05-15] MEDS: ASPIRIN E.C. 81 MG (ECOTRIN) TAB PO SCH (08:21)
[2022-05-15] MEDS: VENlafaxine 75 MG (EFFEXOR) TAB PO SCH (08:21)
[2022-05-15] MEDS: amLODIPine 5 MG (NORVASC) TAB PO SCH (08:22)
[2022-05-15] MEDS: SENNOSIDES 8.6 MG (SENOKOT) TAB PO SCH ×2 (08:22→20:13)
[2022-05-15] MEDS: lisINopril 5 MG (PRINIVIL) TABLET PO SCH (08:22)
[2022-05-15] MEDS: MIRABEGRON 25 MG TAB (MYRBETRIQ) PO SCH (08:22)
[2022-05-15] MEDS: DOCUSATE SODIUM 100 MG (COLACE) CAP PO SCH ×2 (08:23→20:13)
[2022-05-15] MEDS: cloNIDine 0.1 MG (CATAPRES) TAB PO PRN ×2 (08:30→16:14)
[2022-05-15] MEDS: cefTRIAXone 1 GM PRE-MIX 50 ML IV SCH (08:31)
--- NOTE | 2022-05-15 12:14 | Physical Therapy Evaluation ---
PT Evaluation-General Medical Diagnosis Admission Date May 12, 2022 at 14:34 Medical Diagnosis: Lumbar Compression fracture (L2) Onset Date: May 14, 2022 Therapy Diagnosis Therapy Diagnosis: Gait deficit, strength deficit Height/Weight Height (Feet): 5 Height (Inches): 10.00 Weight (Pounds): 161 Weight (Ounces): 4.0 Precautions Precautions/Isolations: Fall Prevention Weight Bear Status Right Lower Extremity: Right Full Weight Bearing Left Lower Extremity: Left Full Weight Bearing Referral Physician: Dr. Jiang Reason for Referral: Evaluation/Treatment Medical History Pertinent Medical History: Dementia Reviewed History: Yes Social History Home: Single Level Current Living Status: Spouse Entry Into Home: Ramp, Stairs With Railing PT Steps Into Home: 1 Prior Prior Level of Function SCALE: Activities may be completed with or without assistive devices. 0-Ieyftxyhne-kallltf completes the activity by him/herself with no assistance from a helper. 5-Set-up or Clean-up Assistance-helper sets up or cleans up; patient completes activity. [place] assists only prior to or following the activity. 4-Supervision or Touching Assistance-helper provides verbal cues and/or touching/steadying and/or contact guard assistance as patient completes activity. Assistance may be provided throughout the activity or intermittently. 3-Partial/Moderate Assistance-helper does LESS THAN HALF the effort. [place] lifts, holds or supports trunk or limbs, but provides less than half the effort. 2-Substantial/Maximal Assistance-helper does MORE THAN HALF the effort. [place] lifts or holds trunk or limbs and provides more than half the effort. 7-Iwtvtjznl-rsaxiu does ALL the effort. Patient does none of the effort to complete the activity. Or, the assistance of 2 or more helpers is required for the patient to complete the activity. If activity was not attempted, code reason: 7-Patient Refused. 9-Not Applicable-not attempted and the patient did not perform the activity before the current illness, exacerbation or injury. 10-Not Attempted due to Environmental Limitations-(lack of equipment, weather restraints, etc.). 88-Not Attempted due to Medical Conditions or Safety Concerns. Bed Mobility: 6 Transfers (B,C,W/C): 6 Gait: 6 Stairs: 6 Indoor Mobility (Ambulation): Independent Stairs: Independent Prior Devices Use: Walker PT Evaluation-Current Subjective Patient lying supine in bed, in the room upon PT arrival, agreeable to treatment. Patient attempts to reply to questions however inappropriate and mumbles most responses. Patients provides all subjective and reports the past few days he has been mumbling more. reports patient has fallen 4 times in the past 7-10 days. Objective Patient Orientation: Person Attachments: Gaffney Catheter ROM/Strength ROM Lower Extremities WFLs all planes based upon visual observation Strength Lower Extremities 3+/5 all planes bilaterally via visual observation Integumentary/Posture Bowel Incontinence: Yes Sensory Vision: Functional Hearing: Functional Sensation Right Lower Extremit: Intact Sensation Left Lower Extremity: Intact Transfers Roll Left to Right (QC): 3 Sit to Lying (QC): 3 Lying to Sitting/Side of Bed(Q: 3 Sit to Stand (QC): 2 Chair/Pzh-ax-Haihi Xfer(QC): 2 Toilet Transfer (QC): 2 Gait Does the Patient Walk?: Yes Mode of Locomotion: Walk Anticipated Mode of Locomotion: Walk Walk 10 feet (QC): 3 Distance: 20 Gait Assistive Device: FWW Balance Sitting Static: Fair Sitting Dynamic: Fair Standing Static: Poor Standing Dynamic: Poor Assessment/Needs Patient tolerated treatment fair. He and his were educated on the use and donning of TLSO. Patient required mod A for bed mobility and total A for donning TLSO. Patient requires mod A for all other bed mobility and max A for transfers. Patient ambulates ~ 4 feet and then begins to have BM. Patient requires mod A for transfer to BSC. Patient requires max A for standing and total A for cleaning from [employer]. Patient ambulates 20 feet with FWW, with max A to the chair. Patient leans heavily to the left during gait. Patient in chair post treatment with all needs met, nursing notified, call light in reach, in the room and chair alarm activated. Rehab Potential: Guarded PT Senior Living Goals Acting Teacher Goals PT Senior Living Goals Time Frame: Jun 02, 2022 Roll Left & Right (QC): 4 Sit to Lying (QC): 4 Lying-Sitting on Side/Bed(QC): 4 Sit to Stand (QC): 4 Chair/Tof-si-Qetex Xfer(QC): 4 Toilet Transfer (QC): 4 Does the Patient Walk: Yes Walk 10 feet (QC): 4 Walk 50ft with 2 Turns (QC): 4 Walk 150 ft (QC): 4 PT Plan Problem List Problem List: Activity Tolerance, Functional Strength, Safety, Balance, Gait, Transfer, Bed Mobility, ROM Treatment/Plan Treatment Plan: Continue Plan of Care Treatment Plan: Bed Mobility, Education, Functional Activity [place], Functional Strength, Group Therapy, Gait, Safety, Therapeutic Exercise, Transfers Treatment Duration: Jun 10, 2022 Frequency: 6 times per week Estimated Hrs Per Day: .25 hour per day Patient and/or Family Agrees t: Yes Safety Risks/Education Patient Education: Gait Training, Transfer Techniques Teaching Recipient: Patient, Family Teaching Methods: Demonstration, Discussion Response to Teaching: Reinforcement Needed Discharge Recommendations Target Placement Post Acute placement recommended. Time/GCodes Time In: 1044 Time Out: 1112 Total Billed Treatment Time: 28 Total Billed Treatment Visit, CORINA RUBY JOHN A PT May 15, 2022 12:14
--- NOTE | 2022-05-15 12:34 | Occupational Therapy Eval ---
OT Evaluation-General/PLF Medical Diagnosis Admission Date May 12, 2022 at 14:34 Medical Diagnosis: Lumbar Compression fracture (L2) Onset Date: May 12, 2022 Therapy Diagnosis Therapy Diagnosis: reduced adl status Height/Weight Height (Feet): 5 Height (Inches): 10.00 Weight (Pounds): 161 Weight (Ounces): 4.0 Precautions Precautions/Isolations: Fall Prevention, Standard Precautions Medical History Pertinent Medical History: Arthritis, COPD, DM, Dementia, GERD, HTN, Neuropathy, Parkinson's Current History Pt presented to hospital with inability to bear weight through LE's, weakness and pain. Per family, pt has had 4 falls within the last week. He was found to have a lumbar compression fracture. No surgical intervention is recommended at this time. Pt currently wearing a TLSO brace. Spouse provides PLOF due to pt's history of dementia. Pt lives with in a single story home. She reports that she assists with adls "when needed" and does not give any further detail. She reports she provides supervision during showers, for patients comfort only. He uses a FWW at baseline. Reviewed History: Yes Social History Home: Single Level Current Living Status: Spouse ADL-Prior Level of Function SCALE: Activities may be completed with or without assistive devices. 2-Esputnsnuo-stuvslm completes the activity by him/herself with no assistance from a helper. 5-Set-up or Clean-up Assistance-helper sets up or cleans up; patient completes activity. [place] assists only prior to or following the activity. 4-Supervision or Touching Assistance-helper provides verbal cues and/or touching/steadying and/or contact guard assistance as patient completes activity. Assistance may be provided throughout the activity or intermittently. 3-Partial/Moderate Assistance-helper does LESS THAN HALF the effort. [place] lifts, holds or supports trunk or limbs, but provides less than half the effort. 2-Substantial/Maximal Assistance-helper does MORE THAN HALF the effort. [place] lifts or holds trunk or limbs and provides more than half the effort. 7-Nyvqnaopr-nofvuz does ALL the effort. Patient does none of the effort to complete the activity. Or, the assistance of 2 or more helpers is required for the patient to complete the activity. If activity was not attempted, code reason: 7-Patient Refused. 9-Not Applicable-not attempted and the patient did not perform the activity before the current illness, exacerbation or injury. 10-Not Attempted due to Environmental Limitations-(lack of equipment, weather restraints, etc.). 88-Not Attempted due to Medical Conditions or Safety Concerns. Self Care: Needed Some Help Functional Cognition: Needed Some Help DME/Equipment: Bath Bench, Tub/Shower Drive Self: No OT Current Status Subjective Pt denies pain, able to follow simple 1 step directions. Appearance Pt left sitting in chair, present at OT departure. Mental Status/Objective Patient Orientation: Person Attachments: Gaffney Catheter, IV Current Hand Dominance: Right Upper Extremity ROM Impaired finger opposition All other joints WNL Upper Extremity Strength Not formally tested secondary to recent compression fracture. ADL-Treatment Eating (QC): 4 On/Off Footwear (QC): 2 Toileting Hygiene (QC): 1 Pt sitting in chair at OT arrival. His was cueing him during his meal to take bites. Per family, pt has had 4 falls within the last week. He was found to have a lumbar compression fracture. No surgical intervention is recommended at this time. Pt currently wearing a TLSO brace. OT educated /pt that even though he does not have specific spinal precautions, they should be cautious with certain movements. Education provided on modified movements. Pt able to bring foot to contralateral knee, but unable to sustain long enough to complete footwear. Pt often requesting to perform activity for him. She reports that she provides some assistance at home when pt is unable to complete a task. Mod a to stand, unsteady. At this time, pt would need assistance with clothing management. Pt/ could benefit from short term OT to address balance, strengthening, modified/compensatory techniques, and safety during adls/functional tasks. Education OT Patient Education: Correct positioning, Modified ADL techniques, Purpose of tx/functional activities, Reviewed precautions, Rehab process, Safety issues, Transfer techniques Teaching Recipient: Patient, Family Teaching Methods: Demonstration, Discussion Response to Teaching: Verbalize Understanding, Return Demonstration, Reinforcement Needed OT Assisted Goals Assisted Goals Time Frame: May 31, 2022 Oral Hygiene (QC): 4 Toileting Hygiene (QC): 4 Upper Body Dressing (QC): 4 Lower Body Dressing (QC): 4 1=Demonstrate adherence to instructed precautions during ADL tasks. 2=Patient will verbalize/demonstrate understanding of assistive devices/modifications for ADL. 3=Patient will improve strength/tolerance for activity to enable patient to perform ADL's. OT Education/Plan Problem List/Assessment Assessment: Decreased Activ Tolerance, Decreased Safety Aware, Decreased UE Strength, Impaired Cognition, Impaired Funct Balance, Impaired Self-Care Skills Discharge Recommendations Plan/Recommendations: Continue POC Treatment Plan/Plan of Care Treatment,Training & Education: Yes Patient would benefit from OT for education, treatment and training to promote independence in ADL's, mobility, safety and/or upper extremity function for ADL's. Plan of Care: ADL Retraining, Caregiver Training, Functional Mobility, Group Exercise/Act as Ind, UE Funct Exercise/Act Treatment Duration: May 31, 2022 Frequency: 3 times per week (3-5x/week) Estimated Hrs Per Day: .25 hour per day Agreement: Yes Time/GCodes Start Time: 12:06 Stop Time: 12:16 Total Time Billed (hr/min): 10 Billed Treatment Time 1 visit Sona Jolley OT May 15, 2022 12:34
[2022-05-15] MEDS: ENOXAPARIN 40 MG/0.4 ML (LOVENOX) SYR SC SCH (16:14)
[2022-05-16] VITALS (7 sets, daily range): BP systolic 105–182; BP diastolic 62–85
[2022-05-16] MEDS: cloNIDine 0.1 MG (CATAPRES) TAB PO PRN (03:50)
[2022-05-16] MEDS: LEVOTHYROXINE 125 MCG (LEVOTHROID) TABLET PO SCH (06:16)
[2022-05-16] MEDS: inSUlin ASPART (NovoLOG) 1 UNIT/0.01 ML (CHARGE PER UNIT) SC SCH ×4 (06:16→20:31)
[2022-05-16 06:44] LABS: BASOPHILS # (AUTO) 0.1 10^3/uL (0.0-0.1); BASOPHILS % (AUTO) 1 % (0-10); EOSINOPHILS # (AUTO) 0.2 10^3/uL (0.0-0.3); EOSINOPHILS % (AUTO) 3 % (0-10); HEMATOCRIT 31 % (40-54); HEMOGLOBIN 10.2 g/dL (13.3-17.7); LYMPHOCYTES # (AUTO) 3.2 10^3/uL (1.0-4.0); LYMPHOCYTES % (AUTO) 36 % (12-44); MEAN CORPUSCULAR HEMOGLOBIN 29 pg (25-34); MEAN CORPUSCULAR HGB CONC 33 g/dL (32-36); MEAN CORPUSCULAR VOLUME 89 fL (80-99); MONOCYTES # (AUTO) 0.8 10^3/uL (0.0-1.0); MONOCYTES % (AUTO) 9 % (0-12); NEUTROPHILS # (AUTO) 4.6 10^3/uL (1.8-7.8); NEUTROPHILS % (AUTO) 52 % (42-75); PLATELET COUNT 396 10^3/uL (130-400); WHITE BLOOD COUNT 8.8 10^3/uL (4.3-11.0)
[2022-05-16 07:26] LABS: ALBUMIN 3.3 GM/DL (3.2-4.5); BILIRUBIN,TOTAL 0.2 MG/DL (0.1-1.0); CALCIUM 9.2 MG/DL (8.5-10.1); CREATININE SERUM 1.51 MG/DL (0.60-1.30); POTASSIUM 4.4 MMOL/L (3.6-5.0); TOTAL PROTEIN 7.1 GM/DL (6.4-8.2)
[2022-05-16] MEDS: DOCUSATE SODIUM 100 MG (COLACE) CAP PO SCH ×2 (09:17→20:31)
[2022-05-16] MEDS: METOCLOPRAMIDE 10 MG (REGLAN) TAB PO SCH (09:18)
[2022-05-16] MEDS: MIRABEGRON 25 MG TAB (MYRBETRIQ) PO SCH (09:18)
[2022-05-16] MEDS: amLODIPine 5 MG (NORVASC) TAB PO SCH (09:18)
[2022-05-16] MEDS: cefTRIAXone 1 GM PRE-MIX 50 ML IV SCH (09:18)
[2022-05-16] MEDS: SENNOSIDES 8.6 MG (SENOKOT) TAB PO SCH ×2 (09:18→20:31)
[2022-05-16] MEDS: ASPIRIN E.C. 81 MG (ECOTRIN) TAB PO SCH (09:18)
[2022-05-16] MEDS: VENlafaxine 75 MG (EFFEXOR) TAB PO SCH (09:18)
[2022-05-16] MEDS: lisINopril 5 MG (PRINIVIL) TABLET PO SCH (09:18)
--- NOTE | 2022-05-16 09:57 | Physical Therapy Daily Note ---
PT Daily Note-Current Subjective Patient agrees to PT. Mental Status Patient Orientation: Confused Attachments: Gaffney Catheter Transfers SCALE: Activities may be completed with or without assistive devices. 9-Nijtheezif-veaqifl completes the activity by him/herself with no assistance from a helper. 5-Set-up or Clean-up Assistance-helper sets up or cleans up; patient completes activity. [place] assists only prior to or following the activity. 4-Supervision or Touching Assistance-helper provides verbal cues and/or touching/steadying and/or contact guard assistance as patient completes activity. Assistance may be provided throughout the activity or intermittently. 3-Partial/Moderate Assistance-helper does LESS THAN HALF the effort. [place] lifts, holds or supports trunk or limbs, but provides less than half the effort. 2-Substantial/Maximal Assistance-helper does MORE THAN HALF the effort. [place] lifts or holds trunk or limbs and provides more than half the effort. 1-Jydonrmpd-ylxdqn does ALL the effort. Patient does none of the effort to complete the activity. Or, the assistance of 2 or more helpers is required for the patient to complete the activity. If activity was not attempted, code reason: 7-Patient Refused. 9-Not Applicable-not attempted and the patient did not perform the activity before the current illness, exacerbation or injury. 10-Not Attempted due to Environmental Limitations-(lack of equipment, weather restraints, etc.). 88-Not Attempted due to Medical Conditions or Safety Concerns. Lying to Sitting/Side of Bed(Q: 2 Sit to Stand (QC): 2 Chair/Snl-vq-Npjcf Xfer(QC): 2 severe left left lean with PT correct Weight Bearing Right Lower Extremity: Right Full Weight Bearing Left Lower Extremity: Left Full Weight Bearing Gait Training Distance: 150' Walk 10 feet (QC): 2 Walk 50 ft with 2 Turns(QC): 2 Walk 150 ft (QC): 2 Gait Assistive Device: FWW NBOS and left lean with PT correct Exercises Seated Therapy Exercises: Sit to stand (x 3 sets max assist) Assessment Patient up in recliner with needs met. RN present to start IV. Increase activity as tolerated by patient. PT Fdc Goals Fdc Goals PT Fdc Goals Time Frame: Jun 02, 2022 Roll Left & Right (QC): 4 Sit to Lying (QC): 4 Lying-Sitting on Side/Bed(QC): 4 Sit to Stand (QC): 4 Chair/Yog-bw-Ktkot Xfer(QC): 4 Toilet Transfer (QC): 4 Does the Patient Walk: Yes Walk 10 feet (QC): 4 Walk 50ft with 2 Turns (QC): 4 Walk 150 ft (QC): 4 PT Plan Treatment/Plan Treatment Plan: Continue Plan of Care Treatment Plan: Bed Mobility, Education, Functional Activity [place], Functional Strength, Group Therapy, Gait, Safety, Therapeutic Exercise, Transfers Treatment Duration: Jun 10, 2022 Frequency: 6 times per week Estimated Hrs Per Day: .25 hour per day Patient and/or Family Agrees t: Yes Time/GCodes Time In: 920 Time Out: 934 Total Billed Treatment Time: 14 Total Billed Treatment 1 visit GT 14 min AUGUSTUS HOOPER PT May 16, 2022 09:57
--- NOTE | 2022-05-16 14:31 | Occupational Ther Daily Note ---
OT Current Status-Daily Note Subjective Pt alert, sitting in recliner. Pt confused and decreased safety awareness. Visitor present in room. Mental Status/Objective Patient Orientation: Person, Confused Attachments: Gaffney Catheter, IV ADL-Treatment Therapy Code Descriptions/Definitions Functional [place] Measure: 0=Not Assessed/NA 4=Minimal Assistance 1=Total Assistance 5=Supervision or Setup 2=Maximal Assistance 6=Modified [place] 3=Moderate Assistance 7=Complete IndependenceSCALE: Activities may be completed with or without assistive devices. 7-Sfsjdoltwc-joplfrg completes the activity by him/herself with no assistance from a helper. 5-Set-up or Clean-up Assistance-helper sets up or cleans up; patient completes activity. [place] assists only prior to or following the activity. 4-Supervision or Touching Assistance-helper provides verbal cues and/or touching/steadying and/or contact guard assistance as patient completes a ctivity. Assistance may be provided throughout the activity or intermittently. 3-Partial/Moderate Assistance-helper does LESS THAN HALF the effort. [place] lifts, holds or supports trunk or limbs, but provides less than half the effort. 2-Substantial/Maximal Assistance-helper does MORE THAN HALF the effort. [place] lifts or holds trunk or limbs and provides more than half the effort. 6-Rsyaxuwle-rdqtap does ALL the effort. Patient does none of the effort to complete the activity. Or, the assistance of 2 or more helpers is required for the patient to complete the activity. If activity was not attempted, code reason: 7-Patient Refused. 9-Not Applicable-not attempted and the patient did not perform the activity before the current illness, exacerbation or injury. 10-Not Attempted due to Environmental Limitations-(lack of equipment, weather restraints, etc.). 88-Not Attempted due to Medical Conditions or Safety Concerns. Other Treatment Sit to stand, CGA with 2 person for safety. Shuffle gait to turn from recliner to bed, CGA x2 for safety. Assist x2 for log roll into bed for back precautions. Assist x2 for bed mobility. After session, pt in bed with call light/phone in reach. Bed alarm on. All needs met. OT Reservations Manager Goals Reservations Manager Goals Time Frame: May 31, 2022 Oral Hygiene (QC): 4 Toileting Hygiene (QC): 4 Upper Body Dressing (QC): 4 Lower Body Dressing (QC): 4 1=Demonstrate adherence to instructed precautions during ADL tasks. 2=Patient will verbalize/demonstrate understanding of assistive devices/modifications for ADL. 3=Patient will improve strength/tolerance for activity to enable patient to perform ADL's. OT Education/Plan Problem List/Assessment Assessment: Decreased Activ Tolerance, Decreased Safety Aware, Impaired Cognition, Impaired Self-Care Skills Discharge Recommendations Plan/Recommendations: Continue POC Treatment Plan/Plan of Care Patient would benefit from OT for education, treatment and training to promote independence in ADL's, mobility, safety and/or upper extremity function for ADL's. Plan of Care: ADL Retraining, Caregiver Training, Functional Mobility, Group Exercise/Act as Ind, UE Funct Exercise/Act Treatment Duration: May 31, 2022 Frequency: 3 times per week (3-5x/week) Estimated Hrs Per Day: .25 hour per day Agreement: Yes Rehab Potential: Guarded Time/GCodes Start Time: 11:43 Stop Time: 11:51 Total Time Billed (hr/min): 8 Billed Treatment Time 1 visit-FA 1 (8 min) WARREN LAWRENCE May 16, 2022 14:31
[2022-05-16] MEDS: ENOXAPARIN 40 MG/0.4 ML (LOVENOX) SYR SC SCH (15:48)
--- NOTE | 2022-05-16 16:15 | Progress Note ---
Subjective Subjective/Events-last exam Pt states he is feeling okay, pain is not bad and he is hoping to go home soon. Objective Exam Last Set of Vital Signs Vital Signs Date Time Temp Pulse Resp B/P (MAP) Pulse Ox O2 Delivery O2 Flow Rate FiO2 05/16/22 16:00 36.8 81 20 148/85 (106) 93 Room Air 05/15/22 10:10 21 Capillary Refill : Less Than 3 Seconds I&O Intake and Output 05/16/22 00:00 Intake Total 3580 ml Output Total 3075 ml Balance 505 ml Intake Oral 1580 ml IV Total 2000 ml Output Urine Total 3075 ml # Bowel Movements 1 General: Alert, No Acute Distress Lungs: Clear to Auscultation, Normal Air Movement Heart: Regular Rate, No Murmurs Abdomen: Normal Bowel Sounds Neuro: Other (speech slightly difficult to understand) Psych/Mental Status: Mood NL Results/Procedures Lab Laboratory Tests 05/15/22 20:11: Glucometer 196H 05/16/22 05:13: White Blood Count 8.8, Red Blood Count 3.54L, Hemoglobin 10.2L, Hematocrit 31L, Mean Corpuscular Volume 89, Mean Corpuscular Hemoglobin 29, Mean Corpuscular Hemoglobin Concent 33, Red Cell Distribution Width 13.2, Platelet Count 396, Mean Platelet Volume 11.0, Immature Granulocyte % (Auto) 1, Neutrophils (%) (Auto) 52, Lymphocytes (%) (Auto) 36, Monocytes (%) (Auto) 9, Eosinophils (%) (Auto) 3, Basophils (%) (Auto) 1, Neutrophils # (Auto) 4.6, Lymphocytes # (Auto) 3.2, Monocytes # (Auto) 0.8, Eosinophils # (Auto) 0.2, Basophils # (Auto) 0.1, Immature Granulocyte # (Auto) 0.0, Sodium Level 136, Potassium Level 4.4, Chloride Level 101, Carbon Dioxide Level 21, Anion Gap 14, Blood Urea Nitrogen 26H, Creatinine 1.51H, Estimat Glomerular Filtration Rate 49, BUN/Creatinine Ratio 17, Glucose Level 184H, Calcium Level 9.2, Corrected Calcium 9.8, Total Bilirubin 0.2, Aspartate Amino Transf (AST/SGOT) 29, Alanine Aminotransferase (ALT/SGPT) 31, Alkaline Phosphatase 166H, Total Protein 7.1, Albumin 3.3 05/16/22 06:15: Glucometer 176H 05/16/22 11:25: Glucometer 272H 05/16/22 16:05: Glucometer 224H Microbiology 05/12/22 Urine Culture - Final, Complete Strep Species, Gamma-Hemolytic Assessment/Plan Assessment/Plan (1) Compression fracture of T12 vertebra Status: Acute Assessment & Plan: Pain controlled, no acute intervention per Surgery. PT. Qualifiers: Qualified Codes: S22.080A - Wedge compression fracture of T11-T12 vertebra, initial encounter for closed fracture (2) Frequent falls Status: Acute Assessment & Plan: PT/OT (3) Hypertension Status: Chronic Assessment & Plan: Only on low dose lisinopril at home, amlodipine 5 mg started inpatient, may need to increase if BP remains elevated. Qualifiers: Qualified Codes: I10 - Essential (primary) hypertension (4) CKD (chronic kidney disease) stage 3, GFR 30-59 ml/min Status: Chronic Assessment & Plan: Concern for acute kidney injury on admit, but review of clinic chart reveals CKD3 and cr baseline around 1.4 to 1.6 Qualifiers: Qualified Codes: N18.31 - Chronic kidney disease, stage 3a (5) Hypothyroidism Status: Chronic Assessment & Plan: TSH 3.0 in Oct 2021 per clinic records. Continue home levothyroxine. (6) Diabetes mellitus, type 2 Status: Chronic (7) COPD (chronic obstructive pulmonary disease) Status: Chronic (8) Hyperlipidemia Status: Chronic Assessment & Plan: Intolerant of statin, recently started on Praluent outpatient. (9) DVT prophylaxis Status: Acute Assessment & Plan: Enoxaparin ERENDIRA SERRANO MD May 16, 2022 16:15
[2022-05-17 03:54] VITALS: BP 154/81
[2022-05-17] MEDS: LEVOTHYROXINE 125 MCG (LEVOTHROID) TABLET PO SCH (05:37)
[2022-05-17] MEDS: inSUlin ASPART (NovoLOG) 1 UNIT/0.01 ML (CHARGE PER UNIT) SC SCH ×4 (05:37→20:28)
[2022-05-17 05:39] LABS: BASOPHILS # (AUTO) 0.1 10^3/uL (0.0-0.1); BASOPHILS % (AUTO) 1 % (0-10); EOSINOPHILS # (AUTO) 0.2 10^3/uL (0.0-0.3); EOSINOPHILS % (AUTO) 2 % (0-10); HEMATOCRIT 33 % (40-54); HEMOGLOBIN 10.8 g/dL (13.3-17.7); LYMPHOCYTES # (AUTO) 3.2 10^3/uL (1.0-4.0); LYMPHOCYTES % (AUTO) 26 % (12-44); MEAN CORPUSCULAR HEMOGLOBIN 29 pg (25-34); MEAN CORPUSCULAR HGB CONC 32 g/dL (32-36); MEAN CORPUSCULAR VOLUME 88 fL (80-99); MEAN PLATELET VOLUME 10.1 fL (9.0-12.2); MONOCYTES % (AUTO) 8 % (0-12); NEUTROPHILS # (AUTO) 7.6 10^3/uL (1.8-7.8); NEUTROPHILS % (AUTO) 63 % (42-75); PLATELET COUNT 439 10^3/uL (130-400); WHITE BLOOD COUNT 12.2 10^3/uL (4.3-11.0)
[2022-05-17 05:50] LABS: ALBUMIN 3.5 GM/DL (3.2-4.5)
[2022-05-17 05:51] LABS: CALCIUM 9.2 MG/DL (8.5-10.1)
[2022-05-17 05:53] LABS: TOTAL PROTEIN 7.2 GM/DL (6.4-8.2)
[2022-05-17 05:54] LABS: BILIRUBIN,TOTAL 0.2 MG/DL (0.1-1.0)
[2022-05-17 05:56] LABS: CREATININE SERUM 1.58 MG/DL (0.60-1.30)
[2022-05-17 07:50] VITALS: BP 147/81
[2022-05-17] MEDS: ASPIRIN E.C. 81 MG (ECOTRIN) TAB PO SCH (08:28)
[2022-05-17] MEDS: METOCLOPRAMIDE 10 MG (REGLAN) TAB PO SCH (08:28)
[2022-05-17] MEDS: MIRABEGRON 25 MG TAB (MYRBETRIQ) PO SCH (08:28)
[2022-05-17] MEDS: DOCUSATE SODIUM 100 MG (COLACE) CAP PO SCH ×2 (08:28→20:28)
[2022-05-17] MEDS: SENNOSIDES 8.6 MG (SENOKOT) TAB PO SCH ×2 (08:29→20:28)
[2022-05-17] MEDS: VENlafaxine 75 MG (EFFEXOR) TAB PO SCH (08:29)
[2022-05-17] MEDS: amLODIPine 5 MG (NORVASC) TAB PO SCH (08:29)
[2022-05-17] MEDS: lisINopril 5 MG (PRINIVIL) TABLET PO SCH (08:29)
--- NOTE | 2022-05-17 10:49 | Physical Therapy Daily Note ---
PT Daily Note-Current Subjective Patient in bed pre tx, agrees to PT, would like to get up and go for a walk, says he doesn't have any pain at rest. Appearance Patient in recliner post tx with nurse call, phone, tray, in room, chair alarm on. Mental Status Patient Orientation: Person, Confused Attachments: Gaffney Catheter back brace Transfers SCALE: Activities may be completed with or without assistive devices. 7-Ckqfitakif-sjgibnk completes the activity by him/herself with no assistance from a helper. 5-Set-up or Clean-up Assistance-helper sets up or cleans up; patient completes activity. [place] assists only prior to or following the activity. 4-Supervision or Touching Assistance-helper provides verbal cues and/or touching/steadying and/or contact guard assistance as patient completes activity. Assistance may be provided throughout the activity or intermittently. 3-Partial/Moderate Assistance-helper does LESS THAN HALF the effort. [place] lifts, holds or supports trunk or limbs, but provides less than half the effort. 2-Substantial/Maximal Assistance-helper does MORE THAN HALF the effort. [place] lifts or holds trunk or limbs and provides more than half the effort. 8-Yfypdeixs-zjxpmj does ALL the effort. Patient does none of the effort to complete the activity. Or, the assistance of 2 or more helpers is required for the patient to complete the activity. If activity was not attempted, code reason: 7-Patient Refused. 9-Not Applicable-not attempted and the patient did not perform the activity before the current illness, exacerbation or injury. 10-Not Attempted due to Environmental Limitations-(lack of equipment, weather restraints, etc.). 88-Not Attempted due to Medical Conditions or Safety Concerns. Roll Left & Right (QC): 3 Lying to Sitting/Side of Bed(Q: 3 Sit to Stand (QC): 3 Chair/Bio-vu-Ihcnr Xfer(QC): 3 Weight Bearing Right Lower Extremity: Right Full Weight Bearing Left Lower Extremity: Left Full Weight Bearing Gait Training Distance: 200' Walk 10 feet (QC): 3 Walk 50 ft with 2 Turns(QC): 3 Walk 150 ft (QC): 3 Gait Persons Needed: 1 Gait Assistive Device: FWW min assist to help with balance and guide walker, patient tends to keep walker too far in front during ambulation Exercises Seated Therapy Exercises: Ankle pumps, Long arc quads Seated Reps: 20 Treatments bed mobility and transfers, ambulation, LE exercise Assessment Current Status: Fair Progress improving endurance and supine to sit PT Snf Goals Sheet Rock Applicator Goals PT Snf Goals Time Frame: Jun 02, 2022 Roll Left & Right (QC): 4 Sit to Lying (QC): 4 Lying-Sitting on Side/Bed(QC): 4 Sit to Stand (QC): 4 Chair/Wee-uw-Dxgja Xfer(QC): 4 Toilet Transfer (QC): 4 Does the Patient Walk: Yes Walk 10 feet (QC): 4 Walk 50ft with 2 Turns (QC): 4 Walk 150 ft (QC): 4 PT Plan Problem List Problem List: Activity Tolerance, Functional Strength, Safety, Balance, Gait, Transfer, Bed Mobility, ROM Treatment/Plan Treatment Plan: Continue Plan of Care Treatment Plan: Bed Mobility, Education, Functional Activity [place], Functional Strength, Group Therapy, Gait, Safety, Therapeutic Exercise, Transfers Treatment Duration: Jun 10, 2022 Frequency: 6 times per week Estimated Hrs Per Day: .25 hour per day Patient and/or Family Agrees t: Yes Safety Risks/Education Patient Education: Gait Training, Transfer Techniques, Correct Positioning, Reviewed Don/Doff Brace, Safety Issues Teaching Recipient: Patient Teaching Methods: Demonstration, Discussion Response to Teaching: Reinforcement Needed Time/GCodes Time In: 1009 Time Out: 1020 Total Billed Treatment Time: 11 Total Billed Treatment 1 visit GT 11' YAEL WALLS PT May 17, 2022 10:49
--- NOTE | 2022-05-17 11:19 | Occupational Ther Daily Note ---
OT Current Status-Daily Note Subjective Pt alert, sitting in recliner. Visitor present in room. Pt verbalizing though somewhat difficult to understand. Pt agrees to therapy. Visitor states that pt may leave today or tomorrow. Mental Status/Objective Patient Orientation: Person, Unable to Assess ADL-Treatment Therapy Code Descriptions/Definitions Functional [place] Measure: 0=Not Assessed/NA 4=Minimal Assistance 1=Total Assistance 5=Supervision or Setup 2=Maximal Assistance 6=Modified [place] 3=Moderate Assistance 7=Complete IndependenceSCALE: Activities may be completed with or without assistive devices. 0-Ymlrcmarqk-axysfwd completes the activity by him/herself with no assistance from a helper. 5-Set-up or Clean-up Assistance-helper sets up or cleans up; patient completes activity. [place] assists only prior to or following the activity. 4-Supervision or Touching Assistance-helper provides verbal cues and/or touching/steadying and/or contact guard assistance as patient completes activity. Assistance may be provided throughout the activity or intermittently. 3-Partial/Moderate Assistance-helper does LESS THAN HALF the effort. [place] lifts, holds or supports trunk or limbs, but provides less than half the effort. 2-Substantial/Maximal Assistance-helper does MORE THAN HALF the effort. [place] lifts or holds trunk or limbs and provides more than half the effort. 9-Xnvgwqbto-qttppw does ALL the effort. Patient does none of the effort to com plete the activity. Or, the assistance of 2 or more helpers is required for the patient to complete the activity. If activity was not attempted, code reason: 7-Patient Refused. 9-Not Applicable-not attempted and the patient did not perform the activity before the current illness, exacerbation or injury. 10-Not Attempted due to Environmental Limitations-(lack of equipment, weather restraints, etc.). 88-Not Attempted due to Medical Conditions or Safety Concerns. Other Treatment Skilled instruction for correct technique when completing B UE exercises to increase strength. Pt required physical, gestural and verbal cues to complete with correct technique. 3 B UE exercises against gravity completed 2 sets 10 reps with mod cues to complete. After session, pt sitting in recliner with call light/phone in reach. All needs met in room. OT Bone Worker Goals Bone Worker Goals Time Frame: May 31, 2022 Oral Hygiene (QC): 4 Toileting Hygiene (QC): 4 Upper Body Dressing (QC): 4 Lower Body Dressing (QC): 4 1=Demonstrate adherence to instructed precautions during ADL tasks. 2=Patient will verbalize/demonstrate understanding of assistive devices/modifications for ADL. 3=Patient will improve strength/tolerance for activity to enable patient to per form ADL's. OT Education/Plan Problem List/Assessment Assessment: Decreased Activ Tolerance, Decreased Safety Aware, Decreased UE Strength, Impaired Cognition, Impaired Self-Care Skills Discharge Recommendations Plan/Recommendations: Continue POC Treatment Plan/Plan of Care Patient would benefit from OT for education, treatment and training to promote independence in ADL's, mobility, safety and/or upper extremity function for ADL's. Plan of Care: ADL Retraining, Caregiver Training, Functional Mobility, Group Ex ercise/Act as Ind, UE Funct Exercise/Act Treatment Duration: May 31, 2022 Frequency: 3 times per week (3-5x/week) Estimated Hrs Per Day: .25 hour per day Agreement: Yes Rehab Potential: Guarded Time/GCodes Start Time: 10:40 Stop Time: 10:50 Total Time Billed (hr/min): 10 Billed Treatment Time 1 visit-EX 1 (10 min) WARREN LAWRENCE May 17, 2022 11:19
[2022-05-17 11:42] VITALS: BP 155/74
--- NOTE | 2022-05-17 13:19 | Diagnostic Imaging Report ---
PROCEDURE: MR imaging of the brain without contrast. TECHNIQUE: Multiplanar, multisequence MR imaging of the brain was performed without contrast. INDICATION: History of falls. FINDINGS: Diffusion-weighted imaging does show several small foci of diffusion restriction in bilateral cerebral hemispheres. The largest area is on the right side in the zaidi radiata. There are several punctate foci in the high parietal lobes bilaterally. There is also a small focus of diffusion restriction in the left posterior parietal and occipital lobe as well as small foci the right temporal lobe. Normal expected flow-voids within the carotid siphons are seen. There is no midline shift. No acute intra-axial or extra-axial hemorrhage is detected. Corpus callosum is unremarkable. The sella and parasellar structures are unremarkable. IMPRESSION: There are multiple small foci of diffusion restriction involving bilateral cerebral hemispheres, suspicious of showering emboli. Findings are consistent with acute/subacute infarcts. No intracranial hemorrhage is detected. Dictated by: Dictated on workstation # [id number]
[2022-05-17 15:24] VITALS: BP 166/79
[2022-05-17] MEDS: ENOXAPARIN 40 MG/0.4 ML (LOVENOX) SYR SC SCH (16:38)
--- NOTE | 2022-05-17 16:59 | Diagnostic Imaging Report ---
PROCEDURE: US carotid duplex, bilateral. TECHNIQUE: Multiple real-time grayscale images were obtained over the carotid arteries in various projections, bilaterally. Additional spectral analysis and color Doppler duplex images were also obtained. INDICATION: Stroke Parameters based on the consensus panel Vergara-Scale and Doppler ultrasound criteria published September 2003, Radiology, Volume 229. DOPPLER (peak systolic velocity M/S Right Left CCA 1.08 .81 ICA Proximal .51 .63 ICA Mid .45 .53 ICA Distal .29 NOT SEEN RATIO .47 .77 ECA .81 .58 VERT .58 .62 Mild plaque is seen in the carotid bulbs and bifurcations. Waveforms are normal. Normal antegrade flow within both vertebral arteries. IMPRESSION: Less than 50% stenosis of the bilateral internal carotid arteries by velocity and ratio criteria. Dictated by: Dictated on workstation # [id number]
[2022-05-17 19:27] VITALS: BP 127/68
--- NOTE | 2022-05-17 20:37 | Progress Note ---
Subjective Subjective/Events-last exam Late entry- pt seen at 1000. He states he is feeling okay and is hopeful to go home soon. He was just returning from PT walking in the [place], they noted he walked with walker with some assistance, does lean to the left. Objective Exam Last Set of Vital Signs Vital Signs Date Time Temp Pulse Resp B/P (MAP) Pulse Ox O2 Delivery O2 Flow Rate FiO2 05/17/22 19:27 36.7 81 18 127/68 (87) 93 Room Air 05/15/22 10:10 21 Capillary Refill : Less Than 3 Seconds I&O Intake and Output 05/17/22 00:00 Intake Total 3780 ml Output Total 2125 ml Balance 1655 ml Intake Oral 1780 ml IV Total 2000 ml Output Urine Total 2125 ml General: Alert, No Acute Distress HEENT: PERRLA, EOMI Lungs: Clear to Auscultation Heart: Regular Rate, No Murmurs Neuro: Other (speech dysarthric, CNII-XII intact except CNVII- has decreased movement of left side of mouth, left pupil irregular shape, reports he has been getting injections in eyes prior to this, 4/5 strength in both lower extremities, 5/5 in upper extremities) Psych/Mental Status: Mood NL Results/Procedures Lab Laboratory Tests 05/17/22 05:28: White Blood Count 12.2H, Red Blood Count 3.77L, Hemoglobin 10.8L, Hematocrit 33L , Mean Corpuscular Volume 88, Mean Corpuscular Hemoglobin 29, Mean Corpuscular Hemoglobin Concent 32, Red Cell Distribution Width 13.2, Platelet Count 439H, Mean Platelet Volume 10.1, Immature Granulocyte % (Auto) 0, Neutrophils (%) (Auto) 63, Lymphocytes (%) (Auto) 26, Monocytes (%) (Auto) 8, Eosinophils (%) (Auto) 2, Basophils (%) (Auto) 1, Neutrophils # (Auto) 7.6, Lymphocytes # (Auto) 3.2, Monocytes # (Auto) 1.0, Eosinophils # (Auto) 0.2, Basophils # (Auto) 0.1, Immature Granulocyte # (Auto) 0.1, Sodium Level 135, Potassium Level 5.0, Chlori de Level 101, Carbon Dioxide Level 23, Anion Gap 11, Blood Urea Nitrogen 34H, Creatinine 1.58H, Estimat Glomerular Filtration Rate 47, BUN/Creatinine Ratio 22, Glucose Level 191H, Calcium Level 9.2, Corrected Calcium 9.6, Total Bilirubin 0.2, Aspartate Amino Transf (AST/SGOT) 34, Alanine Aminotransferase (ALT/SGPT) 35, Alkaline Phosphatase 150H, Total Protein 7.2, Albumin 3.5 05/17/22 05:31: Glucometer 191H 05/17/22 11:15: Glucometer 222H 05/17/22 15:29: Glucometer 211H 05/17/22 20:17: Glucometer 205H Microbiology 05/12/22 Urine Culture - Final, Complete Strep Species, Gamma-Hemolytic Assessment/Plan Assessment/Plan (1) Compression fracture of T12 vertebra Status: Acute Assessment & Plan: Pain controlled, no acute intervention per Surgery. PT. Working on SNF placement, but desired facility won't have space for several days, may go home with home PT prior. 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 Will increase amlodipine to 10 mg. Qualifiers: Qualified Codes: I10 - Essential (primary) hypertension (4) CKD (chronic kidney disease) stage 3, GFR 30-59 ml/min Status: Chronic Assessment & Plan: Concern for acute kidney injury on admit, but review of clinic chart reveals CKD3 and cr baseline around 1.4 to 1.6 Qualifiers: Qualified Codes: N18.31 - Chronic kidney disease, stage 3a (5) Hypothyroidism Status: Chronic Assessment & Plan: TSH 3.0 in Oct 2021 per clinic records. Continue home levothyroxine. (6) Diabetes mellitus, type 2 Status: Chronic (7) COPD (chronic obstructive pulmonary disease) Status: Chronic (8) Hyperlipidemia Status: Chronic Assessment & Plan: Intolerant of statin, recently started on Praluent outpatient. (9) Dysarthria Status: Acute Assessment & Plan: 05/17 today notes that this occurred since admission, she says he was speaking as usual in the ER on 05/12 and the next day he seemed different. Given the dysarthria and facial droop are subacute starting several days ago per 's report, will obtain MRI for further evaluation. Has been on aspirin since admit. (10) Facial droop Status: Acute Assessment & Plan: See above under dysarthria (11) DVT prophylaxis Status: Acute Assessment & Plan: Enoxaparin ERENDIRA SERRANO MD May 17, 2022 20:37
[2022-05-17 23:25] VITALS: BP 108/56
[2022-05-18] VITALS (7 sets, daily range): BP systolic 104–189; BP diastolic 59–86
[2022-05-18] MEDS: LEVOTHYROXINE 125 MCG (LEVOTHROID) TABLET PO SCH (06:27)
[2022-05-18] MEDS: inSUlin ASPART (NovoLOG) 1 UNIT/0.01 ML (CHARGE PER UNIT) SC SCH ×4 (06:32→20:54)
[2022-05-18 07:27] LABS: BASOPHILS # (AUTO) 0.1 10^3/uL (0.0-0.1); BASOPHILS % (AUTO) 0 % (0-10); EOSINOPHILS # (AUTO) 0.2 10^3/uL (0.0-0.3); EOSINOPHILS % (AUTO) 2 % (0-10); HEMATOCRIT 31 % (40-54); HEMOGLOBIN 10.2 g/dL (13.3-17.7); LYMPHOCYTES # (AUTO) 3.4 10^3/uL (1.0-4.0); LYMPHOCYTES % (AUTO) 27 % (12-44); MEAN CORPUSCULAR HEMOGLOBIN 29 pg (25-34); MEAN CORPUSCULAR HGB CONC 33 g/dL (32-36); MEAN CORPUSCULAR VOLUME 90 fL (80-99); MEAN PLATELET VOLUME 10.8 fL (9.0-12.2); MONOCYTES # (AUTO) 1.1 10^3/uL (0.0-1.0); MONOCYTES % (AUTO) 8 % (0-12); NEUTROPHILS # (AUTO) 8.1 10^3/uL (1.8-7.8); NEUTROPHILS % (AUTO) 63 % (42-75); PLATELET COUNT 482 10^3/uL (130-400); WHITE BLOOD COUNT 12.8 10^3/uL (4.3-11.0)
[2022-05-18 07:58] LABS: ALBUMIN 3.5 GM/DL (3.2-4.5); BILIRUBIN,TOTAL 0.3 MG/DL (0.1-1.0); CALCIUM 9.4 MG/DL (8.5-10.1); CREATININE SERUM 1.82 MG/DL (0.60-1.30); POTASSIUM 4.7 MMOL/L (3.6-5.0); TOTAL PROTEIN 7.6 GM/DL (6.4-8.2)
--- NOTE | 2022-05-18 08:49 | Occupational Ther Daily Note ---
OT Current Status-Daily Note Subjective Pt resting in bed upon OT arrival, agreeable to tx. Pt denies any pain at this time. Mental Status/Objective Patient Orientation: Person, Non-Verbal/Aphasic ADL-Treatment Therapy Code Descriptions/Definitions Functional [place] Measure: 0=Not Assessed/NA 4=Minimal Assistance 1=Total Assistance 5=Supervision or Setup 2=Maximal Assistance 6=Modified [place] 3=Moderate Assistance 7=Complete IndependenceSCALE: Activities may be completed with or without assistive devices. 2-Tsvknmdnmm-oyzonzt completes the activity by him/herself with no assistance from a helper. 5-Set-up or Clean-up Assistance-helper sets up or cleans up; patient completes activity. [place] assists only prior to or following the activity. 4-Supervision or Touching Assistance-helper provides verbal cues and/or touchi ng/steadying and/or contact guard assistance as patient completes activity. Assistance may be provided throughout the activity or intermittently. 3-Partial/Moderate Assistance-helper does LESS THAN HALF the effort. [place] lifts, holds or supports trunk or limbs, but provides less than half the effort. 2-Substantial/Maximal Assistance-helper does MORE THAN HALF the effort. [place] lifts or holds trunk or limbs and provides more than half the effort. 6-Xwnpwghci-cfhdhr does ALL the effort. Patient does none of the effort to complete the activity. Or, the assistance of 2 or more helpers is required for the patient to complete the activity. If activity was not attempted, code reason: 7-Patient Refused. 9-Not Applicable-not attempted and the patient did not perform the activity before the current illness, exacerbation or injury. 10-Not Attempted due to Environmental Limitations-(lack of equipment, weather restraints, etc.). 88-Not Attempted due to Medical Conditions or Safety Concerns. Oral Hygiene (QC): 3 (Min A. [place] assist to squeeze toothpaste onto brush. Required assistance holding spit basin and water cup.) Other Treatment Pt remained in bed throughout tx. HOB raised for pt to complete oral care and wash face with washcloth. 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 Pt politely declined other ADLs at this time. After completing oral hygiene/grooming tasks, pt participated in 2 BUE exercises: 10 reps of both shoulder flexion and bicep curls. Pt educated on purpose of BUE exercises and encouraged to do exercises throughout day to increase BUE strength and endurance needed for transfers and self-care tasks, pt nodded in agreement. Post tx, HOB lowered, call light left within reach and all needs met. Education OT Patient Education: Correct positioning, Energy conservation, Exercise program, Progress toward Goal/Update tx plan, Purpose of tx/functional activities, Rehab process Teaching Recipient: Patient Teaching Methods: Demonstration, Discussion Response to Teaching: Verbalize Understanding, Return Demonstration, Reinforcement Needed OT Alf Goals Mexican Food Machine Tender Goals Time Frame: May 31, 2022 Oral Hygiene (QC): 4 Toileting Hygiene (QC): 4 Upper Body Dressing (QC): 4 Lower Body Dressing (QC): 4 1=Demonstrate adherence to instructed precautions during ADL tasks. 2=Patient will verbalize/demonstrate understanding of assistive devices/modifications for ADL. 3=Patient will improve strength/tolerance for activity to enable patient to perform ADL's. OT Education/Plan Problem List/Assessment Assessment: Decreased Activ Tolerance, Decreased UE Strength, Impaired Coordination, Impaired Funct Balance, Impaired I ADL's, Impaired Self-Care Skills, Restricted Funct UE ROM Discharge Recommendations Plan/Recommendations: Continue POC Treatment Plan/Plan of Care Patient would benefit from OT for education, treatment and training to promote independence in ADL's, mobility, safety and/or upper extremity function for ADL's. Plan of Care: ADL Retraining, Caregiver Training, Functional Mobility, Group Exercise/Act as Ind, UE Funct Exercise/Act Treatment Duration: May 31, 2022 Frequency: 3 times per week (3-5x/week) Estimated Hrs Per Day: .25 hour per day Agreement: Yes Rehab Potential: Guarded Time/GCodes Start Time: 08:18 Stop Time: 08:28 Total Time Billed (hr/min): 10 Billed Treatment Time 1, ADL GIO CLAYTON OT May 18, 2022 08:49
[2022-05-18] MEDS: SENNOSIDES 8.6 MG (SENOKOT) TAB PO SCH ×2 (09:19→20:47)
[2022-05-18] MEDS: METOCLOPRAMIDE 10 MG (REGLAN) TAB PO SCH (09:19)
[2022-05-18] MEDS: amLODIPine 5 MG (NORVASC) TAB PO SCH (09:19)
[2022-05-18] MEDS: VENlafaxine 75 MG (EFFEXOR) TAB PO SCH (09:19)
[2022-05-18] MEDS: ASPIRIN E.C. 81 MG (ECOTRIN) TAB PO SCH (09:19)
[2022-05-18] MEDS: MIRABEGRON 25 MG TAB (MYRBETRIQ) PO SCH (09:19)
[2022-05-18] MEDS: lisINopril 5 MG (PRINIVIL) TABLET PO SCH (09:20)
[2022-05-18] MEDS: DOCUSATE SODIUM 100 MG (COLACE) CAP PO SCH ×2 (09:20→20:47)
[2022-05-18] MEDS ORDERED: LIDOCAINE UROJET 2% GEL 10 ML PKG ONE (09:58)
[2022-05-18] MEDS ORDERED: LIDOCAINE UROJET 2% GEL 10 ML PKG TOP ONE (10:00)
--- NOTE | 2022-05-18 10:48 | Physical Therapy Daily Note ---
PT Daily Note-Current Subjective Patient more alert. Spouse present. AGrees to PT. Mental Status Patient Orientation: Confused Attachments: Gaffney Catheter Transfers SCALE: Activities may be completed with or without assistive devices. 6-Tuccovccsn-kisukpq completes the activity by him/herself with no assistance from a helper. 5-Set-up or Clean-up Assistance-helper sets up or cleans up; patient completes activity. [place] assists only prior to or following the activity. 4-Supervision or Touching Assistance-helper provides verbal cues and/or touching/steadying and/or contact guard assistance as patient completes activity. Assistance may be provided throughout the activity or intermittently. 3-Partial/Moderate Assistance-helper does LESS THAN HALF the effort. [place] lifts, holds or supports trunk or limbs, but provides less than half the effort. 2-Substantial/Maximal Assistance-helper does MORE THAN HALF the effort. [place] lifts or holds trunk or limbs and provides more than half the effort. 7-Xmcycqnza-fqbzyp does ALL the effort. Patient does none of the effort to complete the activity. Or, the assistance of 2 or more helpers is required for the patient to complete the activity. If activity was not attempted, code reason: 7-Patient Refused. 9-Not Applicable-not attempted and the patient did not perform the activity before the current illness, exacerbation or injury. 10-Not Attempted due to Environmental Limitations-(lack of equipment, weather restraints, etc.). 88-Not Attempted due to Medical Conditions or Safety Concerns. Lying to Sitting/Side of Bed(Q: 2 Sit to Stand (QC): 2 (x 4 sets to FWW with severe lean to left and retropulsive) Chair/Rkb-el-Rcmlq Xfer(QC): 2 Weight Bearing Right Lower Extremity: Right Full Weight Bearing Left Lower Extremity: Left Full Weight Bearing Gait Training Distance: 5' Gait Assistive Device: FWW Assessment Unable to safely ambulate on this date due to balance difficulties. Patient demonstrated increase left lean in sit and stand and is retropulsive. Patient performed sit to stand to FWW x 4 sets with slight improvement with balance but not enough to safely ambulate. PT Rocket Motor Mechanic Goals Rocket Motor Mechanic Goals PT Nursing Home Goals Time Frame: Jun 02, 2022 Roll Left & Right (QC): 4 Sit to Lying (QC): 4 Lying-Sitting on Side/Bed(QC): 4 Sit to Stand (QC): 4 Chair/Nrg-bq-Vsvuj Xfer(QC): 4 Toilet Transfer (QC): 4 Does the Patient Walk: Yes Walk 10 feet (QC): 4 Walk 50ft with 2 Turns (QC): 4 Walk 150 ft (QC): 4 PT Plan Treatment/Plan Treatment Plan: Continue Plan of Care Treatment Plan: Bed Mobility, Education, Functional Activity [place], Functional Strength, Group Therapy, Gait, Safety, Therapeutic Exercise, Transfers Treatment Duration: Jun 10, 2022 Frequency: 6 times per week Estimated Hrs Per Day: .25 hour per day Patient and/or Family Agrees t: Yes Time/GCodes Time In: 1025 Time Out: 1035 Total Billed Treatment Time: 10 Total Billed Treatment 1 visit EX 10 min AUGUSTUS HOOPER PT May 18, 2022 10:48
[2022-05-18] MEDS: cloNIDine 0.1 MG (CATAPRES) TAB PO PRN (11:31)
--- NOTE | 2022-05-18 13:48 | ST Cognitive Linguistic Eval ---
Speech Evaluation-General Medical Diagnosis Lumbar Compression fracture (L2), Stroke Onset Date: May 12, 2022 Therapy Diagnosis Therapy Diagnosis: Dysarthria, Expressive Aphasia, Suspected Cognitive Impairment Precautions Precautions: Fall, Aspiration Precautions/Isolations: Aspiration, Fall Prevention, Standard Precautions Referral Referring Physician: Dr. Padilla Reason for Referral: Evaluation/Treatment Medical History Pertinent Medical History: Arthritis, COPD, DM, Dementia, GERD, HTN, Neuropathy, Parkinson's Current History The patient is a 71 year-old male with a past medical history significant for dementia presented to [facility] following a lumbar compression fracture. Additionaly, a MRI on 05/17/22 revealed a suspected stroke. Brain MRI: 05/17/22: IMPRESSION: There are multiple small foci of diffusion restriction involving bilateral cerebral hemispheres, suspicious of showering emboli. Findings are consistent with acute/subacute infarcts. No intracranial hemorrhage is detected. Reviewed History: Yes Social History Current Living Status: Spouse Speech PLF-Current Status Prior Level of Function The patient was unable to provide the clinician with information regarding prior level of function. The patient's stated the patient's speech was "much more clear." Subjective The patient was seated upright in bed, awake and alert upon entrance to his room by the clinician. The patient greeted the clinician appropriately and was agreeable to participation in the cognitive linguistic assessment. Language Eval: Auditory Comprehends Simple Yes/No Ques: Functional Indent/Objects Multiple Kim: Functional Follows 1-Step Commands: Functional To note, the patient stated he was unable to identify pictures secondary to a baseline visual impairment. Language Eval: Verbal Language Completes Spontaneous Greeting: Functional Imitates Simple Words/Phrases: Functional Word Finding: Moderate Requests Basic Needs: Functional Cognitive Patient Orientation The patient was oriented to self and month. The patient was unable to state the year, his location, or the city. Objective Cognitive Domain The clinician will complete a cognitive assessment once the patient's language skills have improved. Throughout conversation, suspected cognitive impairments are present. Objective Oral Motor/Speech Production The patient displays imprecise articulation and reduced vocal intensity. The patient's reduced articulation results in the patient's intelligibility being approximately less than 60% intelligible in known contexts. Impression The patient displays moderate dysarthria and mild to moderate expressive aphasia. Speech Short Term Goals Short Term Goals Short Term Goals 1. The patient will demonstrate oral motor exercises with 80% accuracy and mild clinician cueing. Time Frame-STG: Five Days. Speech Prison Goals Fur Trimming Machine Operator Goals 1. The patient will demonstrate improved cognitive linguistic skills for safe discharge to the least restrictive environment. Time Frame: One Week. Speech-Plan Treatment Plan Speech Therapy Treatment Plan: Continue Plan of Care Frequency: 2 times per week Estimated Hrs Per Day: .25 hour per day Rehab Potential: Guarded Safety Risks/Education Teaching Recipient: Patient, Significant Other Teaching Methods: Discussion Response to Teaching: Verbalize Understanding Education Topics Provided: Results, Recommendations, Plan of Care Time Speech Therapy Time In: 12:46 Speech Therapy Time Out: 13:02 Total Billed Time: 16 Billed Treatment Time 1, AUSTEN THOMAS ELIZABETH May 18, 2022 13:48
--- NOTE | 2022-05-18 13:53 | ST Dysphagia Evaluation ---
Speech Evaluation-General Medical Diagnosis Lumbar Compression fracture (L2), Stroke Onset Date: May 12, 2022 Therapy Diagnosis Therapy Diagnosis: Mild Oropharyngeal Dysphagia Precautions Precautions: Fall, Aspiration Precautions/Isolations: Aspiration, Fall Prevention, Standard Precautions Referral Referring Physician: Dr. Padilla Reason for Referral: Evaluation/Treatment Medical History Pertinent Medical History: Arthritis, COPD, DM, Dementia, GERD, HTN, Neuropathy, Parkinson's Current History The patient is a 71 year-old male with a past medical history significant for dementia presented to [facility] following a lumbar compression fracture. Additionaly, a MRI on 05/17/22 revealed a suspected stroke. Brain MRI: 05/17/22: IMPRESSION: There are multiple small foci of diffusion restriction involving bilateral cerebral hemispheres, suspicious of showering emboli. Findings are consistent with acute/subacute infarcts. No intracranial hemorrhage is detected. Reviewed History: Yes Social History Current Living Status: Spouse Speech PLF/Current-Dysphagia Prior Level of Function The patient does not provide information to the clinician regarding prior level of diet consistency. The patient's is present who stated the patient consumed a regular diet with thin liquids at home. The patient's denied s/s of suspected aspiration with PO intake, however, stated, "he chews and chews meats." The patient is currently receiving a dysphagia two consistency diet with thin liquids. Subjective The patient was re-positioned upright in bed, awake and alert upon entrance to his room by the clinician. The patient greeted the clinician appropriately and was agreeable to participation in the clinical bedside swallowing evaluation. The patient's was present at bedside. Cognitive Status Patient Orientation: Person, Confused Oral Motor Skills Dentition: Edentalous (Per patient's the patient does not have dentures and consumes solid with the edentulous state.) Current Food Consistancy: Dysphagia Soft, Thin Liquids Ability to Follow Directions: Fair Oral Expression Ability: Moderate Impairment Voice Voice Phonatory-Based Quality: Normal Voice Pitch: Normal Voice Loudness: Normal Face Facial Symmetry: Asymmetrical (Left sided facial weakness.) Oral-Facial Assessment Oral-Facial Dentition: Normal Labial Seal Description: Normal Lingual Protrusion: Normal Lingual ROM: Normal Lingual Strength: Normal Volitional Dry Swallow: Yes Voluntary Cough: Yes Can Clear Throat Volitionally: Yes Productive Cough: Yes Productive Throat Clear: Yes Dysphagia Evaluation Consistencies Presented: Regular, Thin Liquid, Pureed Oral Phase: Reduced Oral Transit The patient displayed an appropriate ability to draw material from the teaspoon and straw. Prolonged mastication and bolus formation were present with solid (meat) consistencies. Laryngeal elevation was present to palpation. The patient was provided thin liquids via straw, puree, and solid consistencies. The patient demonstrated an immediate rigorous cough following the swallow with a large, consecutive straw drink of thin liquid. When small, single straw drinks were completed, no s/s of suspected aspiration were demonstrated. No s/s of suspected aspiration were present with puree or solid consistencies. A thin liquid bolus was required to clear the solid consistency from the oral cavity. Dietary Recommendations: Mechanical Soft (Dysphagia two.) Liquid Recommendations: Thin Recommendations: - Continue a dysphagia two consistency diet with thin liquids, as tolerated. - Fully upright and alert for PO intake. - Supervision with PO intake, as well as, meal set-up assistance. - Small, single bites and sips. - Monitor for s/s of suspected aspiration with PO intake. If demonstrated, contact speech pathology. The results and recommendations were discussed with the patient and the patient's immediately following the evaluation. The patient's verbalized comprehension of the material. Dysphagia Evaluation Summary The patient displayed mild oropharyngeal dysphagia characterized by reduced lingual coordination prolonged mastication time, and poor airway protection in the presence of bolus consistencies. Speech Short Term Goals Short Term Goals Short Term Goals 1. The patient, family, and staff will following swallowing strategies with 90% accuracy, independently. Speech Eyewear Manufacturing Supervisor Goals Retirement Goals 1. The patient will tolerate the least restrictive diet consistency without s/s of suspected aspiration. Speech-Plan Treatment Plan Speech Therapy Treatment Plan: Continue Plan of Care Treatment Duration: May 25, 2022 Frequency: 2 times per week Estimated Hrs Per Day: .25 hour per day Rehab Potential: Guarded Safety Risks/Education Teaching Recipient: Patient, Family Teaching Methods: Discussion Response to Teaching: Reinforcement Needed Education Topics Provided: Results, Recommendations, Plan of Care Time Speech Therapy Time In: 12:30 Speech Therapy Time Out: 12:46 Total Billed Time: 16 Billed Treatment Time 1, HENRIETTA MILLAN TANNER LACYSVEN MARTINEZ May 18, 2022 13:53
[2022-05-18] MEDS: ENOXAPARIN 40 MG/0.4 ML (LOVENOX) SYR SC SCH (15:45)
--- NOTE | 2022-05-18 17:40 | Progress Note ---
Subjective Subjective/Events-last exam Pt states he is feeling okay. His notes he wasn't able to walk with walker well today, just got up and down. Objective Exam Last Set of Vital Signs Vital Signs Date Time Temp Pulse Resp B/P (MAP) Pulse Ox O2 Delivery O2 Flow Rate FiO2 05/18/22 15:24 36.8 79 20 122/68 (86) 92 Room Air 05/15/22 10:10 21 Capillary Refill : Less Than 3 Seconds I&O Intake and Output 05/18/22 00:00 Intake Total 2290 ml Output Total 1750 ml Balance 540 ml Intake Oral 1240 ml IV Total 1050 ml Output Urine Total 1750 ml Bladder Scan Volume Amount 367 ml General: Alert, No Acute Distress Lungs: Clear to Auscultation, Normal Air Movement Heart: Regular Rate, No Murmurs Neuro: Other (dysarthric speech, slight left facial droop) Psych/Mental Status: Mood NL Results/Procedures Lab Laboratory Tests 05/17/22 20:17: Glucometer 205H 05/18/22 06:08: White Blood Count 12.8H, Red Blood Count 3.51L, Hemoglobin 10.2L, Hematocrit 31L , Mean Corpuscular Volume 90, Mean Corpuscular Hemoglobin 29, Mean Corpuscular Hemoglobin Concent 33, Red Cell Distribution Width 13.4, Platelet Count 482H, Mean Platelet Volume 10.8, Immature Granulocyte % (Auto) 1, Neutrophils (%) (Auto) 63, Lymphocytes (%) (Auto) 27, Monocytes (%) (Auto) 8, Eosinophils (%) (Auto) 2, Basophils (%) (Auto) 0, Neutrophils # (Auto) 8.1H, Lymphocytes # (Auto) 3.4, Monocytes # (Auto) 1.1H, Eosinophils # (Auto) 0.2, Basophils # (Auto) 0.1, Immature Granulocyte # (Auto) 0.1, Sodium Level 136, Potassium Level 4.7, Chloride Level 99, Carbon Dioxide Level 20L, Anion Gap 17H, Blood Urea Nitrogen 39H, Creatinine 1.82H, Estimat Glomerular Filtration Rate 39, BUN/Crea tinine Ratio 21, Glucose Level 173H, Calcium Level 9.4, Corrected Calcium 9.8, Total Bilirubin 0.3, Aspartate Amino Transf (AST/SGOT) 30, Alanine Aminotransferase (ALT/SGPT) 37, Alkaline Phosphatase 170H, Total Protein 7.6, Albumin 3.5 05/18/22 06:28: Glucometer 183H 05/18/22 10:43: Glucometer 177H 05/18/22 15:26: Glucometer 272H Microbiology 05/12/22 Urine Culture - Final, Complete Strep Species, Gamma-Hemolytic Assessment/Plan Assessment/Plan (1) Compression fracture of T12 vertebra Status: Acute Assessment & Plan: Pain controlled, no acute intervention per Surgery. PT. Working on SNF placement, but desired facility won't have space for several days, may go home with home PT prior. 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 Will increase amlodipine to 10 mg. Qualifiers: Qualified Codes: I10 - Essential (primary) hypertension (4) CKD (chronic kidney disease) stage 3, GFR 30-59 ml/min Status: Chronic Assessment & Plan: Concern for acute kidney injury on admit, but review of clinic chart reveals CKD3 and cr baseline around 1.4 to 1.6 Qualifiers: Qualified Codes: N18.31 - Chronic kidney disease, stage 3a (5) Hypothyroidism Status: Chronic Assessment & Plan: TSH 3.0 in Oct 2021 per clinic records. Continue home levothyroxine. (6) Diabetes mellitus, type 2 Status: Chronic (7) COPD (chronic obstructive pulmonary disease) Status: Chronic (8) Hyperlipidemia Status: Chronic Assessment & Plan: Intolerant of statin, recently started on Praluent outpatient. (9) Dysarthria Status: Acute Assessment & Plan: 05/17 today notes that this occurred since admission, she says he was speaking as usual in the ER on 05/12 and the next day he seemed different. Given the dysarthria and facial droop are subacute starting several days ago per 's report, will obtain MRI for further evaluation. Has been on aspirin since admit. 05/18- see stroke diagnosis below. Speech therapy consulted, appreciate recommendations. (10) Facial droop Status: Acute Assessment & Plan: See above under dysarthria (11) Ischemic stroke Status: Acute Assessment & Plan: MRI on 05/17 showed multiple bilateral acute/subacute infarcts suspicious for showering emboli. notes change in status on first night of admit, although she didn't mention it until asked yesterday. Echo, carotid US and telemetry ordered. Already on aspirin, can't tolerate statin. Continue PT/OT/ST. (12) DVT prophylaxis Status: Acute Assessment & Plan: Enoxaparin ERENDIRA SERRANO MD May 18, 2022 17:40
[2022-05-19 03:51] VITALS: BP 154/70
[2022-05-19] MEDS: inSUlin ASPART (NovoLOG) 1 UNIT/0.01 ML (CHARGE PER UNIT) SC SCH ×4 (05:10→20:45)
[2022-05-19 05:15] LABS: BASOPHILS # (AUTO) 0.1 10^3/uL (0.0-0.1); BASOPHILS % (AUTO) 1 % (0-10); EOSINOPHILS # (AUTO) 0.2 10^3/uL (0.0-0.3); EOSINOPHILS % (AUTO) 2 % (0-10); HEMATOCRIT 33 % (40-54); HEMOGLOBIN 10.9 g/dL (13.3-17.7); LYMPHOCYTES # (AUTO) 2.9 10^3/uL (1.0-4.0); LYMPHOCYTES % (AUTO) 35 % (12-44); MEAN CORPUSCULAR HEMOGLOBIN 29 pg (25-34); MEAN CORPUSCULAR HGB CONC 33 g/dL (32-36); MEAN CORPUSCULAR VOLUME 88 fL (80-99); MONOCYTES # (AUTO) 0.6 10^3/uL (0.0-1.0); MONOCYTES % (AUTO) 8 % (0-12); NEUTROPHILS # (AUTO) 4.6 10^3/uL (1.8-7.8); NEUTROPHILS % (AUTO) 55 % (42-75); PLATELET COUNT 154 10^3/uL (130-400); WHITE BLOOD COUNT 8.4 10^3/uL (4.3-11.0)
[2022-05-19 05:24] LABS: ALBUMIN 3.4 GM/DL (3.2-4.5)
[2022-05-19 05:25] LABS: POTASSIUM 4.5 MMOL/L (3.6-5.0)
[2022-05-19 05:27] LABS: TOTAL PROTEIN 7.2 GM/DL (6.4-8.2)
[2022-05-19 05:29] LABS: BILIRUBIN,TOTAL 0.3 MG/DL (0.1-1.0)
[2022-05-19 05:30] LABS: CREATININE SERUM 1.73 MG/DL (0.60-1.30)
[2022-05-19] MEDS: LEVOTHYROXINE 125 MCG (LEVOTHROID) TABLET PO SCH (05:47)
[2022-05-19 08:11] VITALS: BP 134/62
[2022-05-19] MEDS ORDERED: HYPOCHLOROUS ACID/NaCl (VASHE) 250 ML IR PRN (09:15)
[2022-05-19] MEDS: lisINopril 5 MG (PRINIVIL) TABLET PO SCH (09:37)
[2022-05-19] MEDS: VENlafaxine 75 MG (EFFEXOR) TAB PO SCH (09:37)
[2022-05-19] MEDS: DOCUSATE SODIUM 100 MG (COLACE) CAP PO SCH ×2 (09:37→20:45)
[2022-05-19] MEDS: MIRABEGRON 25 MG TAB (MYRBETRIQ) PO SCH (09:37)
[2022-05-19] MEDS: METOCLOPRAMIDE 10 MG (REGLAN) TAB PO SCH (09:37)
[2022-05-19] MEDS: SENNOSIDES 8.6 MG (SENOKOT) TAB PO SCH ×2 (09:37→20:45)
[2022-05-19] MEDS: amLODIPine 10 MG (NORVASC) TAB PO SCH (09:37)
[2022-05-19] MEDS: ASPIRIN E.C. 81 MG (ECOTRIN) TAB PO SCH (09:37)
[2022-05-19 11:25] VITALS: BP 152/72
--- NOTE | 2022-05-19 13:57 | Physical Therapy Daily Note ---
PT Daily Note-Current Subjective Patient much more alert on this date. Spouse present. Spouse reports she performs all ADL's and assists with mobility at home PLOF. Patient utilizes FWW and w/c at home PLOF with spouse assist. Mental Status Patient Orientation: Person Attachments: Gaffney Catheter Transfers SCALE: Activities may be completed with or without assistive devices. 6-Hbxdaaqvol-hxuuejg completes the activity by him/herself with no assistance from a helper. 5-Set-up or Clean-up Assistance-helper sets up or cleans up; patient completes activity. [place] assists only prior to or following the activity. 4-Supervision or Touching Assistance-helper provides verbal cues and/or touching/steadying and/or contact guard assistance as patient completes activ ity. Assistance may be provided throughout the activity or intermittently. 3-Partial/Moderate Assistance-helper does LESS THAN HALF the effort. [place] lifts, holds or supports trunk or limbs, but provides less than half the effort. 2-Substantial/Maximal Assistance-helper does MORE THAN HALF the effort. [place] lifts or holds trunk or limbs and provides more than half the effort. 8-Cbmtsglcg-oredft does ALL the effort. Patient does none of the effort to complete the activity. Or, the assistance of 2 or more helpers is required for the patient to complete the activity. If activity was not attempted, code reason: 7-Patient Refused. 9-Not Applicable-not attempted and the patient did not perform the activity before the current illness, exacerbation or injury. 10-Not Attempted due to Environmental Limitations-(lack of equipment, weather restraints, etc.). 88-Not Attempted due to Medical Conditions or Safety Concerns. Sit to Lying (QC): 3 Lying to Sitting/Side of Bed(Q: 3 Sit to Stand (QC): 2 Weight Bearing Right Lower Extremity: Right Full Weight Bearing Left Lower Extremity: Left Full Weight Bearing Gait Training Distance: 150' Walk 10 feet (QC): 2 Walk 50 ft with 2 Turns(QC): 2 Walk 150 ft (QC): 2 Gait Assistive Device: FWW continues to present with left lean with sit to stand and with gait training Assessment Patient fatigues with minimal activity and returns to bed with rails up and bed alarm activated. PT to increase activity as tolerated by patient. PT Inspector Aligning Goals Inspector Aligning Goals PT Detention Goals Time Frame: Jun 02, 2022 Roll Left & Right (QC): 4 Sit to Lying (QC): 4 Lying-Sitting on Side/Bed(QC): 4 Sit to Stand (QC): 4 Chair/Lbg-gp-Josbp Xfer(QC): 4 Toilet Transfer (QC): 4 Does the Patient Walk: Yes Walk 10 feet (QC): 4 Walk 50ft with 2 Turns (QC): 4 Walk 150 ft (QC): 4 PT Plan Treatment/Plan Treatment Plan: Continue Plan of Care Treatment Plan: Bed Mobility, Education, Functional Activity [place], Functional Strength, Group Therapy, Gait, Safety, Therapeutic Exercise, Transfers Treatment Duration: Jun 10, 2022 Frequency: 6 times per week Estimated Hrs Per Day: .25 hour per day Patient and/or Family Agrees t: Yes Time/GCodes Time In: 1333 Time Out: 1346 Total Billed Treatment Time: 13 Total Billed Treatment 1 visit GT 13 min AUGUSTUS HOOPER PT May 19, 2022 13:57
--- NOTE | 2022-05-19 14:06 | Progress Note ---
Subjective Subjective/Events-last exam Pt states he is feeling pretty well, says he walked a little in the room and seems much better today than yesterday. Objective Exam Last Set of Vital Signs Vital Signs Date Time Temp Pulse Resp B/P (MAP) Pulse Ox O2 Delivery O2 Flow Rate FiO2 05/19/22 12:52 80 05/19/22 11:25 36.7 20 152/72 (98) 92 Room Air 05/15/22 10:10 21 Capillary Refill : Less Than 3 Seconds I&O Intake and Output 05/18/22 23:59 Intake Total 1360 ml Output Total 1850 ml Balance -490 ml Intake Oral 1360 ml Output Urine Total 1850 ml Bladder Scan Volume Amount 74 ml 640 ml General: Alert, No Acute Distress Lungs: Clear to Auscultation, Normal Air Movement Heart: Regular Rate, No Murmurs Neuro: Other (dysarthric speech, left mouth droop) Psych/Mental Status: Mood NL Results/Procedures Lab Laboratory Tests 05/18/22 15:26: Glucometer 272H 05/18/22 20:34: Glucometer 170H 05/19/22 05:07: Glucometer 157H, White Blood Count 8.4, Red Blood Count 3.79L, Hemoglobin 10.9L, Hematocrit 33L, Mean Corpuscular Volume 88, Mean Corpuscular Hemoglobin 29, Mean Corpuscular Hemoglobin Concent 33, Red Cell Distribution Width 13.2, Platelet C ount 154, Mean Platelet Volume 11.0, Immature Granulocyte % (Auto) 1, Neutrophils (%) (Auto) 55, Lymphocytes (%) (Auto) 35, Monocytes (%) (Auto) 8, Eosinophils (%) (Auto) 2, Basophils (%) (Auto) 1, Neutrophils # (Auto) 4.6, Lymphocytes # (Auto) 2.9, Monocytes # (Auto) 0.6, Eosinophils # (Auto) 0.2, Basophils # (Auto) 0.1, Immature Granulocyte # (Auto) 0.0, Sodium Level 133L, Potassium Level 4.5, Chloride Level 100, Carbon Dioxide Level 20L, Anion Gap 13, Blood Urea Nitrogen 37H, Creatinine 1.73H, Estimat Glomerular Filtration Rate 42, BUN/Creatinine Ratio 21, Glucose Level 168H, Calcium Level 9.0, Corrected Calcium 9.5, Total Bilirubin 0.3, Aspartate Amino Transf (AST/SGOT) 28, Alanine Aminotransferase (ALT/SGPT) 33, Alkaline Phosphatase 152H, Total Protein 7.2, Albumin 3.4 05/19/22 10:32: Glucometer 281H Microbiology 05/12/22 Urine Culture - Final, Complete Strep Species, Gamma-Hemolytic Assessment/Plan Assessment/Plan (1) Compression fracture of T12 vertebra Status: Acute Assessment & Plan: Pain controlled, no acute intervention per Surgery. PT. Working on SNF placement, but desired facility won't have space for several days , may go home with home PT prior. IRF eval completed, waiting on insurance prior auth. 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 Will increase amlodipine to 10 mg. Qualifiers: Qualified Codes: I10 - Essential (primary) hypertension (4) CKD (chronic kidney disease) stage 3, GFR 30-59 ml/min Status: Chronic Assessment & Plan: Concern for acute kidney injury on admit, but review of clinic chart reveals CKD3 and cr baseline around 1.4 to 1.6 Qualifiers: Qualified Codes: N18.31 - Chronic kidney disease, stage 3a (5) Hypothyroidism Status: Chronic Assessment & Plan: TSH 3.0 in Oct 2021 per clinic records. Continue home levothyroxine. (6) Diabetes mellitus, type 2 Status: Chronic (7) COPD (chronic obstructive pulmonary disease) Status: Chronic (8) Hyperlipidemia Status: Chronic Assessment & Plan: Intolerant of statin, recently started on Praluent outpatient. (9) Dysarthria Status: Acute Assessment & Plan: 05/17 today notes that this occurred since admission, she says he was speaking as usual in the ER on 05/12 and the next day he seemed different. Given the dysarthria and facial droop are subacute starting several days ago per 's report, will obtain MRI for further evaluation. Has been on aspirin since admit. 05/18- see stroke diagnosis below. Speech therapy consulted, appreciate recommendations. (10) Facial droop Status: Acute Assessment & Plan: See above under dysarthria (11) Ischemic stroke Status: Acute Assessment & Plan: MRI on 05/17 showed multiple bilateral acute/subacute infarcts suspicious for showering emboli. notes change in status on first night of admit, although she didn't mention it until asked yesterday. Echo, carotid US and telemetry ordered. Already on aspirin, can't tolerate statin. Continue PT/OT/ST. 05/19- carotid US without hemodynamially significant stenosis, echo with normal EF and no clear evidence of diastolic dysfunction. No arrhythmia on telemetry to date. Will add plavix for dual antiplatelet therapy for at least 21 days and check MRA to further delineate cause. (12) DVT prophylaxis Status: Acute Assessment & Plan: Enoxaparin ERENDIRA SERRANO MD May 19, 2022 14:06
--- NOTE | 2022-05-19 14:41 | Occupational Ther Daily Note ---
OT Current Status-Daily Note Subjective Pt resting in bed with present at beside upon OT arrival, agreeable to tx. Mental Status/Objective Attachments: Gaffney Catheter ADL-Treatment Therapy Code Descriptions/Definitions Functional [place] Measure: 0=Not Assessed/NA 4=Minimal Assistance 1=Total Assistance 5=Supervision or Setup 2=Maximal Assistance 6=Modified [place] 3=Moderate Assistance 7=Complete IndependenceSCALE: Activities may be completed with or without assistive devices. 4-Epbhmivlje-wdcxecn completes the activity by him/herself with no assistance from a helper. 5-Set-up or Clean-up Assistance-helper sets up or cleans up; patient completes activity. [place] assists only prior to or following the activity. 4-Supervision or Touching Assistance-helper provides verbal cues and/or touching/steadying and/or contact guard assistance as patient completes activity. Assistance may be provided throughout the activity or intermittently. 3-Partial/Moderate Assistance-helper does LESS THAN HALF the effort. [place] lifts, holds or supports trunk or limbs, but provides less than half the effort. 2-Substantial/Maximal Assistance-helper does MORE THAN HALF the effort. [place] lifts or holds trunk or limbs and provides more than half the effort. 9-Ivheiujja-xiozpv does ALL the effort. Patient does none of the effort to com plete the activity. Or, the assistance of 2 or more helpers is required for the patient to complete the activity. If activity was not attempted, code reason: 7-Patient Refused. 9-Not Applicable-not attempted and the patient did not perform the activity before the current illness, exacerbation or injury. 10-Not Attempted due to Environmental Limitations-(lack of equipment, weather restraints, etc.). 88-Not Attempted due to Medical Conditions or Safety Concerns. Other Treatment Pt remained in bed throughout tx. He politely declined any ADLs, preferring to participate in UE exercises to increase his strength and endurance for transfers and self-care tasks. He completed 15 reps of the following UE exercises: shoulder flexion, bicep curls, punches, isometric tricep extensions with pillow, and fist pumps. Noticeable BUE weakness and poor coordination throughout exercises. Post tx, pt left in bed with call light in reach and all needs met. Education OT Patient Education: Correct positioning, Energy conservation, Exercise program, Progress toward Goal/Update tx plan, Purpose of tx/functional activities, Rehab process Teaching Recipient: Patient Teaching Methods: Demonstration, Discussion Response to Teaching: Verbalize Understanding, Return Demonstration, Reinforcement Needed OT Chcf Goals Soybean Grower Goals Time Frame: May 31, 2022 Oral Hygiene (QC): 4 Toileting Hygiene (QC): 4 Upper Body Dressing (QC): 4 Lower Body Dressing (QC): 4 1=Demonstrate adherence to instructed precautions during ADL tasks. 2=Patient will verbalize/demonstrate understanding of assistive devices/modifications for ADL. 3=Patient will improve strength/tolerance for activity to enable patient to perform ADL's. OT Education/Plan Problem List/Assessment Assessment: Decreased Activ Tolerance, Decreased UE Strength, Impaired Coordination, Impaired Funct Balance, Impaired I ADL's, Impaired Self-Care Skills Discharge Recommendations Plan/Recommendations: Continue POC Treatment Plan/Plan of Care Patient would benefit from OT for education, treatment and training to promote independence in ADL's, mobility, safety and/or upper extremity function for ADL's. Plan of Care: ADL Retraining, Caregiver Training, Functional Mobility, Group Exercise/Act as Ind, UE Funct Exercise/Act Treatment Duration: May 31, 2022 Frequency: 3 times per week (3-5x/week) Estimated Hrs Per Day: .25 hour per day Agreement: Yes Rehab Potential: Guarded Time/GCodes Start Time: 13:59 Stop Time: 14:10 Total Time Billed (hr/min): 11 Billed Treatment Time 1, Ex GIO CLAYTON OT May 19, 2022 14:41
[2022-05-19 15:22] VITALS: BP 125/65
[2022-05-19] MEDS ORDERED: CLOPIDOGREL 75 MG (PLAVIX) TABLET ONE (16:39)
--- NOTE | 2022-05-19 16:49 | Diagnostic Imaging Report ---
PROCEDURE: MR angiography of the brain without the use of contrast. TECHNIQUE: 3D [id number] non contrast enhanced MR angiography of the head was performed. A source data was reformatted into rotating MIP projections. INDICATION: Stroke. COMPARISON: MRI brain 05/17/2022. FINDINGS: Noncontrast jbeg-er-jugqlg intracranial MRA demonstrates high-grade stenosis of 90-99% of the left M1 segment. There remains flow in the more distal M2 and M3 segments which appear diminutive. There is also high-grade stenosis of the right M1 segment of 90-99% with some persistent flow in the more distal right MCA branches. The intracranial vertebral, internal carotid, basilar, bilateral anterior cerebral and middle cerebral arteries are widely patent. No aneurysms are identified. IMPRESSION: High-grade narrowing of 90-99% of both MCA M1 segments. Findings discussed with Paula Padilla at 4:45 p.m. on 05/19/2022. Dictated by: Dictated on workstation # [id number]
[2022-05-19] MEDS: CLOPIDOGREL 75 MG (PLAVIX) TABLET PO SCH (17:13)
[2022-05-19] MEDS: ENOXAPARIN 40 MG/0.4 ML (LOVENOX) SYR SC SCH (17:14)
--- NOTE | 2022-05-19 17:56 | Progress Note ---
Subjective Subjective/Events-last exam Received call from Radiology, MRA showed 90-99% stenosis of both MCA M1 segments. Objective Exam Last Set of Vital Signs Vital Signs Date Time Temp Pulse Resp B/P (MAP) Pulse Ox O2 Delivery O2 Flow Rate FiO2 05/19/22 15:22 36.5 85 20 125/65 (85) 93 Room Air 05/15/22 10:10 21 Capillary Refill : Less Than 3 Seconds I&O Intake and Output 05/19/22 00:00 Intake Total 1360 ml Output Total 1850 ml Balance -490 ml Intake Oral 1360 ml Output Urine Total 1850 ml Bladder Scan Volume Amount 74 ml 640 ml Results/Procedures Lab Laboratory Tests 05/18/22 20:34: Glucometer 170H 05/19/22 05:07: Glucometer 157H, White Blood Count 8.4, Red Blood Count 3.79L, Hemoglobin 10.9L, Hematocrit 33L, Mean Corpuscular Volume 88, Mean Corpuscular Hemoglobin 29, Mean Corpuscular Hemoglobin Concent 33, Red Cell Distribution Width 13.2, Platelet Count 154, Mean Platelet Volume 11.0, Immature Granulocyte % (Auto) 1, Neutrophils (%) (Auto) 55, Lymphocytes (%) (Auto) 35, Monocytes (%) (Auto) 8, Eosinophils (%) (Auto) 2, Basophils (%) (Auto) 1, Neutrophils # (Auto) 4.6, Lymphocytes # (Auto) 2.9, Monocytes # (Auto) 0.6, Eosinophils # (Auto) 0.2, Basophils # (Auto) 0.1, Immature Granulocyte # (Auto) 0.0, Sodium Level 133L, Potassium Level 4.5, Chloride Level 100, Carbon Dioxide Level 20L, Anion Gap 13, Blood Urea Nitrogen 37H, Creatinine 1.73H, Estimat Glomerular Filtration Rate 42, BUN/Creatinine Ratio 21, Glucose Level 168H, Calcium Level 9.0, Corrected Calcium 9.5, Total Bilirubin 0.3, Aspartate Amino Transf (AST/SGOT) 28, Alanine Aminotransferase (ALT/SGPT) 33, Alkaline Phosphatase 152H, Total Protein 7.2, Albumin 3.4 05/19/22 10:32: Glucometer 281H 05/19/22 15:19: Glucometer 240H Microbiology 05/12/22 Urine Culture - Final, Complete Strep Species, Gamma-Hemolytic Assessment/Plan Assessment/Plan (1) Compression fracture of T12 vertebra Status: Acute Assessment & Plan: Pain controlled, no acute intervention per Surgery. PT. Working on SNF placement, but desired facility won't have space for several days, may go home with home PT prior. IRF eval completed, waiting on insurance prior auth. 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 Will increase amlodipine to 10 mg. Qualifiers: Qualified Codes: I10 - Essential (primary) hypertension (4) CKD (chronic kidney disease) stage 3, GFR 30-59 ml/min Status: Chronic Assessment & Plan: Concern for acute kidney injury on admit, but review of clinic chart reveals CKD3 and cr baseline around 1.4 to 1.6 Qualifiers: Qualified Codes: N18.31 - Chronic kidney disease, stage 3a (5) Hypothyroidism Status: Chronic Assessment & Plan: TSH 3.0 in Oct 2021 per clinic records. Continue home levothyroxine. (6) Diabetes mellitus, type 2 Status: Chronic (7) COPD (chronic obstructive pulmonary disease) Status: Chronic (8) Hyperlipidemia Status: Chronic Assessment & Plan: Intolerant of statin, recently started on Praluent outpatient. (9) Dysarthria Status: Acute Assessment & Plan: 05/17 today notes that this occurred since admission, she says he was speaking as usual in the ER on 05/12 and the next day he seemed different. Given the dysarthria and facial droop are subacute starting several days ago per 's report, will obtain MRI for further evaluation. Has been on aspirin since admit. 05/18- see stroke diagnosis below. Speech therapy consulted, appreciate recommendations. (10) Facial droop Status: Acute Assessment & Plan: See above under dysarthria (11) Ischemic stroke Status: Acute Assessment & Plan: MRI on 05/17 showed multiple bilateral acute/subacute infarcts suspicious for showering emboli. notes change in status on first night of admit, although she didn't mention it until asked yesterday. Echo, carotid US and telemetry ordered. Already on aspirin, can't tolerate statin. Continue PT/OT/ST. 05/19- carotid US without hemodynamially significant stenosis, echo with normal EF and no clear evidence of diastolic dysfunction. No arrhythmia on telemetry to date. Will add plavix for dual antiplatelet therapy for at least 21 days and check MRA to further delineate cause- see below. 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 Called Stroke Neuro at and they recommended continue dual antiplatelet therapy, continue to monitor for cardiac source which they suspect is most likely, will need rodent 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 monitor. Unfortunately he cannot tolerate statin, continue PCSK9. (13) DVT prophylaxis Status: Acute Assessment & Plan: Enoxaparin ERENDIRA SERRANO MD May 19, 2022 17:56
[2022-05-19 19:11] VITALS: BP 144/76
[2022-05-19 23:52] VITALS: BP 120/58
[2022-05-20 03:36] VITALS: BP 136/61
[2022-05-20 05:56] LABS: BASOPHILS # (AUTO) 0.1 10^3/uL (0.0-0.1); BASOPHILS % (AUTO) 0 % (0-10); EOSINOPHILS # (AUTO) 0.1 10^3/uL (0.0-0.3); EOSINOPHILS % (AUTO) 1 % (0-10); HEMATOCRIT 33 % (40-54); HEMOGLOBIN 10.6 g/dL (13.3-17.7); LYMPHOCYTES # (AUTO) 2.3 10^3/uL (1.0-4.0); LYMPHOCYTES % (AUTO) 14 % (12-44); MEAN CORPUSCULAR HEMOGLOBIN 29 pg (25-34); MEAN CORPUSCULAR HGB CONC 32 g/dL (32-36); MEAN CORPUSCULAR VOLUME 90 fL (80-99); MEAN PLATELET VOLUME 10.2 fL (9.0-12.2); MONOCYTES # (AUTO) 1.2 10^3/uL (0.0-1.0); MONOCYTES % (AUTO) 7 % (0-12); NEUTROPHILS # (AUTO) 12.6 10^3/uL (1.8-7.8); NEUTROPHILS % (AUTO) 77 % (42-75); PLATELET COUNT 505 10^3/uL (130-400); WHITE BLOOD COUNT 16.3 10^3/uL (4.3-11.0)
[2022-05-20 06:21] LABS: ALBUMIN 3.6 GM/DL (3.2-4.5); POTASSIUM 5.1 MMOL/L (3.6-5.0)
[2022-05-20 06:22] LABS: CALCIUM 9.5 MG/DL (8.5-10.1)
[2022-05-20 06:23] LABS: TOTAL PROTEIN 7.7 GM/DL (6.4-8.2)
[2022-05-20] MEDS: LEVOTHYROXINE 125 MCG (LEVOTHROID) TABLET PO SCH (06:24)
[2022-05-20 06:25] LABS: BILIRUBIN,TOTAL 0.3 MG/DL (0.1-1.0)
[2022-05-20] MEDS: inSUlin ASPART (NovoLOG) 1 UNIT/0.01 ML (CHARGE PER UNIT) SC SCH ×4 (06:25→22:10)
[2022-05-20 06:27] LABS: CREATININE SERUM 1.52 MG/DL (0.60-1.30)
[2022-05-20 06:36] LABS: EOSINOPHILS % (MANUAL) 1 %; LYMPHOCYTES % (MANUAL) 12 %; MONOCYTES % (MANUAL) 8 %; NEUTROPHILS % (MANUAL) 79 %; RBC MORPH NORMAL
[2022-05-20 08:00] VITALS: BP 142/67
[2022-05-20] MEDS: SENNOSIDES 8.6 MG (SENOKOT) TAB PO SCH ×2 (08:40→19:58)
[2022-05-20] MEDS: MIRABEGRON 25 MG TAB (MYRBETRIQ) PO SCH (08:40)
[2022-05-20] MEDS: amLODIPine 10 MG (NORVASC) TAB PO SCH (08:40)
[2022-05-20] MEDS: CLOPIDOGREL 75 MG (PLAVIX) TABLET PO SCH (08:40)
[2022-05-20] MEDS: ASPIRIN E.C. 81 MG (ECOTRIN) TAB PO SCH (08:40)
[2022-05-20] MEDS: VENlafaxine 75 MG (EFFEXOR) TAB PO SCH (08:40)
[2022-05-20] MEDS: DOCUSATE SODIUM 100 MG (COLACE) CAP PO SCH ×2 (08:40→19:58)
[2022-05-20] MEDS: METOCLOPRAMIDE 10 MG (REGLAN) TAB PO SCH (08:40)
[2022-05-20] MEDS: lisINopril 5 MG (PRINIVIL) TABLET PO SCH (08:41)
--- NOTE | 2022-05-20 08:57 | Physical Therapy Daily Note ---
PT Daily Note-Current Subjective Patient in recliner pre tx, voices no complaints of pain. Appearance Patient in recliner post tx with nurse call, phone, tray, all needs met. Mental Status Patient Orientation: Person, Unable to Assess, Mumbles Transfers SCALE: Activities may be completed with or without assistive devices. 5-Odbayowkha-uerwkvh completes the activity by him/herself with no assistance from a helper. 5-Set-up or Clean-up Assistance-helper sets up or cleans up; patient completes activity. [place] assists only prior to or following the activity. 4-Supervision or Touching Assistance-helper provides verbal cues and/or touch ing/steadying and/or contact guard assistance as patient completes activity. Assistance may be provided throughout the activity or intermittently. 3-Partial/Moderate Assistance-helper does LESS THAN HALF the effort. [place] lifts, holds or supports trunk or limbs, but provides less than half the effort. 2-Substantial/Maximal Assistance-helper does MORE THAN HALF the effort. [place] lifts or holds trunk or limbs and provides more than half the effort. 9-Pgxijtwny-waglyi does ALL the effort. Patient does none of the effort to complete the activity. Or, the assistance of 2 or more helpers is required for the patient to complete the activity. If activity was not attempted, code reason: 7-Patient Refused. 9-Not Applicable-not attempted and the patient did not perform the activity before the current illness, exacerbation or injury. 10-Not Attempted due to Environmental Limitations-(lack of equipment, weather restraints, etc.). 88-Not Attempted due to Medical Conditions or Safety Concerns. Weight Bearing Right Lower Extremity: Right Full Weight Bearing Left Lower Extremity: Left Full Weight Bearing Exercises Supine Ex: Ankle pumps, Quad Set, Glut sets, Heel Slides Supine Reps: 10 Treatments LE ROM Assessment Current Status: Poor Progress Patient leans to the left side in recliner, this therapist repositions him. Nurse aide in room states that patient barely made it to the recliner and just seems very tired. Patient refuses to ambulate, only agrees to LE ROM with enc ouragement. Patient is hard to understand, he mumbles and seems very lethargic. PT Line O Scribe Operator Goals Line O Scribe Operator Goals PT Line O Scribe Operator Goals Time Frame: Jun 02, 2022 Roll Left & Right (QC): 4 Sit to Lying (QC): 4 Lying-Sitting on Side/Bed(QC): 4 Sit to Stand (QC): 4 Chair/Kmz-yo-Crimv Xfer(QC): 4 Toilet Transfer (QC): 4 Does the Patient Walk: Yes Walk 10 feet (QC): 4 Walk 50ft with 2 Turns (QC): 4 Walk 150 ft (QC): 4 PT Plan Problem List Problem List: Activity Tolerance, Functional Strength, Safety, Balance, Gait, Transfer, Bed Mobility, ROM Treatment/Plan Treatment Plan: Continue Plan of Care Treatment Plan: Bed Mobility, Education, Functional Activity [place], Functional Strength, Group Therapy, Gait, Safety, Therapeutic Exercise, Transfers Treatment Duration: Jun 10, 2022 Frequency: 6 times per week Estimated Hrs Per Day: .25 hour per day Patient and/or Family Agrees t: Yes Safety Risks/Education Patient Education: Correct Positioning, Safety Issues Teaching Recipient: Patient Teaching Methods: Demonstration, Discussion Response to Teaching: Reinforcement Needed Time/GCodes Time In: 0844 Time Out: 08 Total Billed Treatment Time: 8 Total Billed Treatment 1 visit EX YAEL WANG PT May 20, 2022 08:57
[2022-05-20] MEDS: ACETAMINOPHEN 325 MG TABLET PO PRN (10:28)
--- NOTE | 2022-05-20 11:06 | Progress Note - Hospitalist ---
Subjective HPI/CC On Admission Date Seen by Provider: May 20, 2022 Time Seen by Provider: 10:00 CC: Compression Fracture with Severe Debility HPI: This is a 71yoM with history of Dementia with poor recall presented with Lumbar Compression Fracture with Severe Pain and can't ambulate. MRI showed the L2 compression fracture with retropulsion, but Neurosurgeon Dr. Marti assessed that to not be any spinal cord emergency. He did have elevated blood pressure. Gaffney Catheter was placed 1000cc's out and he has much improved status. Blood pressure is now normal. Patient has significant Dementia issues he will need Custodial. Subjective/Events-last exam Patient feeling fatigue after physical therapy this morning. [place] a little weak in the upright position. Denies chest pain cough decreasing back pain with weightbearing comfortable at rest. present at bedside some mild expressive aphasia which she reports has been improving with no worsening today. Objective Exam Vital Signs Vital Signs Date Time Temp Pulse Resp B/P (MAP) Pulse Ox O2 Delivery O2 Flow Rate FiO2 05/20/22 08:00 36.8 85 24 142/67 (92) 96 Room Air 05/15/22 10:10 21 Capillary Refill : Less Than 3 Seconds General Appearance: No Apparent Distress Respiratory: Chest Non Tender, Lungs Clear, Normal Breath Sounds, No Accessory Muscle Use, No Respiratory Distress Cardiovascular: Regular Rate, Rhythm, No Edema, No Gallop, No JVD, No Murmur, Normal Peripheral Pulses Gastrointestinal: Normal Bowel Sounds, No Organomegaly, No Pulsatile Mass, Non Tender, Soft Neurologic/Psychiatric: Facial Droop (Left with generalized 4-5+ strength bilateral upper and lower extremities.) Results/Procedures Lab Laboratory Tests 05/20/22 05:40 Patient resulted labs reviewed. Assessment/Plan Assessment and Plan Assess & Plan/Chief Complaint (1) Compression fracture of T12 vertebra Status: Acute Assessment & Plan: Pain controlled, no acute intervention per Surgery. PT. Working on SNF placement, but desired facility won't have space for several days, may go home with home PT prior. IRF eval completed, waiting on insurance prior auth. 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 Will increase amlodipine to 10 mg. Qualifiers: Qualified Codes: I10 - Essential (primary) hypertension (4) CKD (chronic kidney disease) stage 3, GFR 30-59 ml/min Status: Chronic Assessment & Plan: Concern for acute kidney injury on admit, but review of clinic chart reveals CKD3 and cr baseline around 1.4 to 1.6 Qualifiers: Qualified Codes: N18.31 - Chronic kidney disease, stage 3a (5) Hypothyroidism Status: Chronic Assessment & Plan: TSH 3.0 in Oct 2021 per clinic records. Continue home levothyroxine. (6) Diabetes mellitus, type 2 Status: Chronic (7) COPD (chronic obstructive pulmonary disease) Status: Chronic (8) Hyperlipidemia Status: Chronic Assessment & Plan: Intolerant of statin, recently started on Praluent outpat ient. (9) Dysarthria Status: Acute Assessment & Plan: 05/17 today notes that this occurred since admission, she says he was speaking as usual in the ER on 05/12 and the next day he seemed different. Given the dysarthria and facial droop are subacute starting several days ago per 's report, will obtain MRI for further evaluation. Has been on aspirin since admit. 05/18- see stroke diagnosis below. Speech therapy consulted, appreciate recommendations. (10) Facial droop Status: Acute Assessment & Plan: See above under dysarthria (11) Ischemic stroke Status: Acute Assessment & Plan: MRI on 05/17 showed multiple bilateral acute/subacute infarcts suspicious for showering emboli. notes change in status on first night of admit, although she didn't mention it until asked yesterday. Echo, carotid US and telemetry ordered. Already on aspirin, can't tolerate statin. Continue PT/OT/ST. 05/19- carotid US without hemodynamially significant stenosis, echo with normal EF and no clear evidence of diastolic dysfunction. No arrhythmia on telemetry to date. Will add plavix for dual antiplatelet therapy for at least 21 days and check MRA to further delineate cause- see below. 05/20 patient fatigued with some reported lightheadedness in the upright position concerning for orthostatic blood pressure drop we will have him check sitting and standing blood pressures. If if this is indeed the case may need to base blood pressure control on standing pressures. The patient's white count is up to 16,000 today physical examination is unremarkable will repeat UA as the patient does have indwelling Gaffney. Physical examination suggest no other possible sources of infection Today. Repeat CBC in a.m. 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 Called Stroke Neuro at and they recommended continue dual antiplatelet therapy, continue to monitor for cardiac source which they suspect is most karly veronika, will need 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 helper termite monitor. Unfortunately he cannot tolerate statin, continue PCSK9. (13) DVT prophylaxis Status: Acute Assessment & Plan: Enoxaparin DERICK AN MD May 20, 2022 11:06
[2022-05-20 12:00] VITALS: BP 90/55
[2022-05-20 16:00] VITALS: BP 121/60
[2022-05-20] MEDS: ENOXAPARIN 40 MG/0.4 ML (LOVENOX) SYR SC SCH (16:19)
[2022-05-20 16:32] LABS: BILIRUBIN,URINE NEGATIVE (NEGATIVE); CLARITY,URINE CLEAR; COLOR,URINE YELLOW; GLUCOSE, URINE (UA) NEGATIVE (NEGATIVE); KETONES,URINE NEGATIVE (NEGATIVE); LEUKOCYTE ESTERASE ,URINE NEGATIVE (NEGATIVE); NITRITE,URINE NEGATIVE (NEGATIVE); PROTEIN,URINE 2+ (NEGATIVE)
[2022-05-20 16:39] LABS: BACTERIA,URINE NEGATIVE /HPF; SQUAMOUS EPITHELIAL CELL,UR RARE /HPF
[2022-05-20 16:40] LABS: AMORPHOUS SEDIMENT,UR RARE AMOR URATES /LPF; GRANULAR CASTS,URINE RARE /LPF
[2022-05-20 19:46] VITALS: BP 174/76
[2022-05-20] MEDS: cloNIDine 0.1 MG (CATAPRES) TAB PO PRN (19:57)
[2022-05-21] VITALS (7 sets, daily range): BP systolic 103–147; BP diastolic 66–79
[2022-05-21] MEDS: inSUlin ASPART (NovoLOG) 1 UNIT/0.01 ML (CHARGE PER UNIT) SC SCH ×4 (06:10→20:38)
[2022-05-21 06:15] LABS: BASOPHILS # (AUTO) 0.1 10^3/uL (0.0-0.1); BASOPHILS % (AUTO) 0 % (0-10); EOSINOPHILS # (AUTO) 0.1 10^3/uL (0.0-0.3); EOSINOPHILS % (AUTO) 1 % (0-10); HEMATOCRIT 34 % (40-54); HEMOGLOBIN 10.8 g/dL (13.3-17.7); LYMPHOCYTES # (AUTO) 2.9 10^3/uL (1.0-4.0); LYMPHOCYTES % (AUTO) 14 % (12-44); MEAN CORPUSCULAR HEMOGLOBIN 29 pg (25-34); MEAN CORPUSCULAR HGB CONC 32 g/dL (32-36); MEAN CORPUSCULAR VOLUME 90 fL (80-99); MEAN PLATELET VOLUME 9.9 fL (9.0-12.2); MONOCYTES # (AUTO) 1.7 10^3/uL (0.0-1.0); MONOCYTES % (AUTO) 9 % (0-12); NEUTROPHILS % (AUTO) 74 % (42-75); PLATELET COUNT 515 10^3/uL (130-400); WHITE BLOOD COUNT 20.1 10^3/uL (4.3-11.0)
[2022-05-21] MEDS: LEVOTHYROXINE 125 MCG (LEVOTHROID) TABLET PO SCH (06:33)
[2022-05-21 06:38] LABS: ALBUMIN 3.7 GM/DL (3.2-4.5)
[2022-05-21 06:39] LABS: POTASSIUM 4.9 MMOL/L (3.6-5.0)
[2022-05-21 06:40] LABS: CALCIUM 9.6 MG/DL (8.5-10.1)
[2022-05-21 06:41] LABS: TOTAL PROTEIN 8.1 GM/DL (6.4-8.2)
[2022-05-21 06:43] LABS: BILIRUBIN,TOTAL 0.4 MG/DL (0.1-1.0)
[2022-05-21 06:45] LABS: CREATININE SERUM 1.73 MG/DL (0.60-1.30)
[2022-05-21] MEDS: ASPIRIN E.C. 81 MG (ECOTRIN) TAB PO SCH (08:38)
[2022-05-21] MEDS: SENNOSIDES 8.6 MG (SENOKOT) TAB PO SCH ×2 (08:38→20:47)
[2022-05-21] MEDS: MIRABEGRON 25 MG TAB (MYRBETRIQ) PO SCH (08:39)
[2022-05-21] MEDS: DOCUSATE SODIUM 100 MG (COLACE) CAP PO SCH ×2 (08:39→20:47)
[2022-05-21] MEDS: VENlafaxine 75 MG (EFFEXOR) TAB PO SCH (08:39)
[2022-05-21] MEDS: METOCLOPRAMIDE 10 MG (REGLAN) TAB PO SCH (08:39)
[2022-05-21] MEDS: CLOPIDOGREL 75 MG (PLAVIX) TABLET PO SCH (08:39)
[2022-05-21] MEDS: lisINopril 5 MG (PRINIVIL) TABLET PO SCH (08:39)
[2022-05-21] MEDS: amLODIPine 10 MG (NORVASC) TAB PO SCH (08:39)
--- NOTE | 2022-05-21 10:38 | Diagnostic Imaging Report ---
INDICATION: Leukocytosis, hypoxia. TECHNIQUE: Single view chest 10:16 AM. CORRELATION STUDY: 05/12/2022 FINDINGS: Rotated towards the left. Heart size enlarged. Vasculature slightly prominent. Question minimal atelectasis or infiltrate in the left lung base. Likely old left posterior rib fractures. IMPRESSION: 1. Cardiac enlargement with borderline vasculature. Question minimal atelectasis or infiltrate in the left lung base. Dictated by: Dictated on workstation # [id number]
--- NOTE | 2022-05-21 10:40 | Progress Note - Hospitalist ---
Subjective HPI/CC On Admission Date Seen by Provider: May 21, 2022 Time Seen by Provider: 08:00 CC: Compression Fracture with Severe Debility HPI: This is a 71yoM with history of Dementia with poor recall presented with Jonna mbar Compression Fracture with Severe Pain and can't ambulate. MRI showed the L2 compression fracture with retropulsion, but Neurosurgeon Dr. Marti assessed that to not be any spinal cord emergency. He did have elevated blood pressure. Gaffney Catheter was placed 1000cc's out and he has much improved status. Blood pressure is now normal. Patient has significant Dementia issues he will need Detention. Subjective/Events-last exam Patient more alert today. He does report some persistent precordial pain and low-grade when asked about cough he denied this but staff have noted that he has been coughing after eating. He denies chills or fever. He reports a mild frontal headache when ask denies neck pain or stiffness and he appears to be in no acute distress. Objective Exam Vital Signs Vital Signs Date Time Temp Pulse Resp B/P (MAP) Pulse Ox O2 Delivery O2 Flow Rate FiO2 05/21/22 07:39 37.3 80 22 113/73 (86) 90 Room Air 05/15/22 10:10 21 Capillary Refill : Less Than 3 Seconds General Appearance: No Apparent Distress Respiratory: Chest Non Tender, Lungs Clear, Normal Breath Sounds, No Accessory Muscle Use, No Respiratory Distress Cardiovascular: Regular Rate, Rhythm, No Edema, No Gallop, No JVD, No Murmur, Normal Peripheral Pulses Gastrointestinal: Normal Bowel Sounds, No Organomegaly, No Pulsatile Mass, Non Tender, Soft Extremity: Normal Inspection Results/Procedures Lab Laboratory Tests 05/21/22 06:08 Patient resulted labs reviewed. Assessment/Plan Assessment and Plan Assess & Plan/Chief Complaint (1) Compression fracture of T12 vertebra Status: Acute Assessment & Plan: Pain controlled, no acute intervention per Surgery. PT. Working on SNF placement, but desired facility won't have space for several days, may go home with home PT prior. IRF eval completed, waiting on insurance prior auth. Qualifiers: Qualified Codes: S22.080A - Wedge compression fracture of T11-T12 vertebra, initial encounter for closed fracture (2) Frequent falls Status: Acute Assessment & Plan: PT/OT (3) Hypertension Status: Chronic Assessment & Plan: Only on low dose lisinopril at home, amlodipine 5 mg started inpatient, was also receiving clonidine prn- last dose service line layer 05/16. Will increase amlodipine to 10 mg. Qualifiers: Qualified Codes: I10 - Essential (primary) hypertension (4) CKD (chronic kidney disease) stage 3, GFR 30-59 ml/min Status: Chronic Assessment & Plan: Concern for acute kidney injury on admit, but review of clinic chart reveals CKD3 and cr baseline around 1.4 to 1.6 Qualifiers: Qualified Codes: N18.31 - Chronic kidney disease, stage 3a (5) Hypothyroidism Status: Chronic Assessment & Plan: TSH 3.0 in Oct 2021 per clinic records. Continue home levothyroxine. (6) Diabetes mellitus, type 2 Status: Chronic (7) COPD (chronic obstructive pulmonary disease) Status: Chronic (8) Hyperlipidemia Status: Chronic Assessment & Plan: Intolerant of statin, recently started on Praluent outpatient. (9) Dysarthria Status: Acute Assessment & Plan: 05/17 today notes that this occurred since admission, she says he was speaking as usual in the ER on 05/12 and the next day he seemed different. Given the dysarthria and facial droop are subacute starting several days ago per 's report, will obtain MRI for further evaluation. Has been on aspirin since admit. 05/18- see stroke diagnosis below. Speech therapy consulted, appreciate recommendations. (10) Facial droop Status: Acute Assessment & Plan: See above under dysarthria (11) Ischemic stroke Status: Acute Assessment & Plan: MRI on 05/17 showed multiple bilateral acute/subacute infarcts suspicious for showering emboli. notes change in status on first night of admit, although she didn't mention it until asked yesterday. Echo, carotid US and telemetry ordered. Already on aspirin, can't tolerate statin. Continue PT/OT/ST. 05/19- carotid US without hemodynamially significant stenosis, echo with normal EF and no clear evidence of diastolic dysfunction. No arrhythmia on telemetry to date. Will add plavix for dual antiplatelet therapy for at least 21 days and check MRA to further delineate cause- see below. 05/20 patient fatigued with some reported lightheadedness in the upright position concerning for orthostatic blood pressure drop we will have him check sitting and standing blood pressures. If if this is indeed the case may need to base blood pressure control on standing pressures. The patient's white count is up to 16,000 today physical examination is unremarkable will repeat UA as the patient does have indwelling Gaffney. Physical examination suggest no other possible sources of infection Today. Repeat CBC in a.m. 05/21 while patient is more alert today his white count is higher at 20,000. Coughing with meals suggest aspiration we will check a chest x-ray to evaluate for underlying aspiration pneumonitis. Earlier he apparently had been cleared by speech but will repeat speech evaluation initiate thicken liquids and monitor. he continues to exhibit right-sided hemiparesis with right-sided neglect compatible with a left CVA likely due to high-grade MCA disease noted on MRA see below. Continue physical therapy potential evaluation for acute rehab in the future. 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 Called Stroke Neuro at and they recommended continue dual antiplatelet therapy, continue to monitor for cardiac source which they suspect is most l ikely, will need termite inspector monitor. Unfortunately he cannot tolerate statin, continue PCSK9. (13) DVT prophylaxis Status: Acute Assessment & Plan: Enoxaparin DERICK AN MD May 21, 2022 10:40
[2022-05-21] MEDS ORDERED: PIPERACILLIN SODIUM/TAZOBACTAM 4.5 GM in NS (IVPB) 100 ML IV ONE (16:45)
[2022-05-21] MEDS: ENOXAPARIN 40 MG/0.4 ML (LOVENOX) SYR SC SCH (17:39)
[2022-05-21] MEDS: PIPERACILLIN SODIUM/TAZOBACTAM 4.5 GM in NS (IVPB) 100 ML IV SCH (23:22)
[2022-05-22 03:31] VITALS: BP 121/67
[2022-05-22 06:28] LABS: BASOPHILS # (AUTO) 0.1 10^3/uL (0.0-0.1); BASOPHILS % (AUTO) 0 % (0-10); EOSINOPHILS # (AUTO) 0.1 10^3/uL (0.0-0.3); EOSINOPHILS % (AUTO) 0 % (0-10); HEMATOCRIT 31 % (40-54); HEMOGLOBIN 9.7 g/dL (13.3-17.7); LYMPHOCYTES # (AUTO) 2.7 10^3/uL (1.0-4.0); LYMPHOCYTES % (AUTO) 11 % (12-44); MEAN CORPUSCULAR HEMOGLOBIN 29 pg (25-34); MEAN CORPUSCULAR HGB CONC 32 g/dL (32-36); MEAN CORPUSCULAR VOLUME 93 fL (80-99); MEAN PLATELET VOLUME 10.6 fL (9.0-12.2); MONOCYTES # (AUTO) 2.2 10^3/uL (0.0-1.0); MONOCYTES % (AUTO) 9 % (0-12); NEUTROPHILS # (AUTO) 19.6 10^3/uL (1.8-7.8); NEUTROPHILS % (AUTO) 79 % (42-75); PLATELET COUNT 484 10^3/uL (130-400); WHITE BLOOD COUNT 24.9 10^3/uL (4.3-11.0)
[2022-05-22 06:35] LABS: ALBUMIN 3.3 GM/DL (3.2-4.5); POTASSIUM 4.9 MMOL/L (3.6-5.0)
[2022-05-22] MEDS: PIPERACILLIN SODIUM/TAZOBACTAM 4.5 GM in NS (IVPB) 100 ML IV SCH ×3 (06:35→23:19)
[2022-05-22] MEDS: LEVOTHYROXINE 125 MCG (LEVOTHROID) TABLET PO SCH (06:35)
[2022-05-22 06:36] LABS: CALCIUM 9.2 MG/DL (8.5-10.1)
[2022-05-22 06:37] LABS: TOTAL PROTEIN 7.4 GM/DL (6.4-8.2)
[2022-05-22 06:39] LABS: BILIRUBIN,TOTAL 0.8 MG/DL (0.1-1.0)
[2022-05-22 06:41] LABS: CREATININE SERUM 2.63 MG/DL (0.60-1.30)
[2022-05-22] MEDS: inSUlin ASPART (NovoLOG) 1 UNIT/0.01 ML (CHARGE PER UNIT) SC SCH ×4 (06:42→21:15)
[2022-05-22 06:55] LABS: LYMPHOCYTES % (MANUAL) 12 %; MONOCYTES % (MANUAL) 6 %; NEUTROPHILS % (MANUAL) 82 %; RBC MORPH NORMAL
[2022-05-22 07:40] VITALS: BP 129/60
[2022-05-22] MEDS: ASPIRIN E.C. 81 MG (ECOTRIN) TAB PO SCH (08:12)
[2022-05-22] MEDS: DOCUSATE SODIUM 100 MG (COLACE) CAP PO SCH ×2 (08:13→21:15)
[2022-05-22] MEDS: lisINopril 5 MG (PRINIVIL) TABLET PO SCH (08:13)
[2022-05-22] MEDS: MIRABEGRON 25 MG TAB (MYRBETRIQ) PO SCH (08:13)
[2022-05-22] MEDS: VENlafaxine 75 MG (EFFEXOR) TAB PO SCH (08:13)
[2022-05-22] MEDS: METOCLOPRAMIDE 10 MG (REGLAN) TAB PO SCH (08:13)
[2022-05-22] MEDS: SENNOSIDES 8.6 MG (SENOKOT) TAB PO SCH ×2 (08:14→21:15)
[2022-05-22] MEDS: CLOPIDOGREL 75 MG (PLAVIX) TABLET PO SCH (08:14)
[2022-05-22] MEDS: amLODIPine 10 MG (NORVASC) TAB PO SCH (08:14)
--- NOTE | 2022-05-22 08:50 | Speech Therapy Daily Note ---
Speech Daily Progress Note Subjective Date Seen by Provider: May 22, 2022 Time Seen by Provider: 08:02 The patient was lying in bed, asleep upon entrance to the room by the clinician. The patient's remains at bedside and the patient's breakfast tray is present. The patient required maximum, consistent clinician cueing for appropriate alertness levels for safe P.O. intake and trials. Per patient's , the patient has demonstrated increased lethargy throughout the weekend. "On Sunday, I couldn't even wake him up." The patient's lethargy and fatigue is not similar to the patient's presentation on , throughout the clinician's initial evaluation. On , 05/18/22, the patient was visiting with the clinician, completing speech and language evaluations throughout conversation, and displayed consistent appropriate alertness levels. The clinician shared with the patient's RN, Kory, the change in the patient's status throughout the clinician's interactions. Kory stated the physician stated the patient was improved on Sunday in comparison to Sunday and is aware of the patient's current status. The patient's current recommendations from speech pathology request speech pathology to be contacted with concerns regarding aspiration, including s/s of suspected aspiration. The clinician received information regarding the concern from a chart review completed by the clinician on this date. At the patient's current alertness level (decreased), the patient's continued to provide the patient with P.O. trials, increasing his risk for aspiration. Objective Due to the maximum verbal prompting required for appropriate alertness levels, trials of puree and nectar-thick liquid were provided, only. To note, thin liquids were present on the patient's breakfast tray regardless of the recommendation from the physician the day prior. The patient was provided eight teaspoons of puree and eight ounces of nectar- thick liquids (five teaspoons, single straw drinks, and large, consecutive straw drinks). The patient did not attempt to self-feed. No s/s of suspected aspiration were demonstrated with the presented P.O. trials and the patient's vocal quality remained clear following each swallow. The patient inconsistently follows one-step commands on this date, requiring repetition of the command for accuracy. The patient displays right neglect, requiring clinician verbal cueing for the patient to turn his head to the right and make eye contact throughout the evaluation. The patient's speech remains with dysarthria characterized by imprecise articulation. Due to the patient's current level of lethargy, limited language treatment could be accomplished. Recommendations: - Dysphagia one (pureed) consistency diet with mildly thick (nectar-thick) liquids, as tolerated. - Fully upright and ALERT for P.O. intake. If the patient is not alert, the patient should remain N.P.O. pending appropriate alertness levels. - Supervision of staff for P.O. intake to ensure appropriate alertness levels and safe positioning (upright). - Small bites and sips. - Crush medication and place in puree for administration. - Monitor for s/s of suspected aspiration with P.O. intake. If demonstrated, please contact speech pathology. The recommendations were discussed extensively with the patient and the patient's . The patient's was asked not to feed the patient during periods of lethargy and to ensure the patient is seated upright if the patient is being fed. The patient's agreed to the recommendations. The recommendations were discussed with the patient's RN immediately following completion. Assessment Assessment Current Status: Poor Progress Treatment Plan Continue Plan of Care Speech Short Term Goals Short Term Goals Short Term Goals 1. The patient will demonstrate oral motor exercises with 80% accuracy and mild clinician cueing. Time Frame-STG: Five Days. Speech Deicer Repairer Pneumatic Goals Halfway Goals 1. The patient will demonstrate improved cognitive linguistic skills for safe discharge to the least restrictive environment. Time Frame: One Week. Speech-Plan Treatment Plan Speech Therapy Treatment Plan: Continue Plan of Care Treatment Duration: May 25, 2022 Frequency: 2 times per week Estimated Hrs Per Day: .25 hour per day Rehab Potential: Guarded Safety Risks/Education Teaching Recipient: Patient, Significant Other Teaching Methods: Discussion Response to Teaching: Reinforcement Needed Education Topics Provided: Results, Recommendations, S/s of Suspected Aspiration, Aspiration Risks Time Speech Therapy Time In: 08:02 Speech Therapy Time Out: 08:20 Total Billed Time: 18 Billed Treatment Time HENRIETTA Harris [facility] No LOY, [facility] May 22, 2022 08:50
--- NOTE | 2022-05-22 11:17 | Progress Note ---
CATHILoyFEDE MATTA 05/22/22 1117: Subjective Date Seen by a Provider: May 22, 2022 Time Seen by a Provider: 11:00 Subjective/Events-last exam CC: Compression Fracture with Severe Debility HPI: This is a 71yoM with history of Dementia with poor recall presented with Lumbar Compression Fracture with Severe Pain and can't ambulate. MRI showed the L2 compression fracture with retropulsion, but Neurosurgeon Dr. Marti assessed that to not be any spinal cord emergency. He did have elevated blood pressure. Gaffney Catheter was placed 1000cc's out and he has much improved status. Blood pressure is now normal. Patient has significant Dementia issues he will need Shelter. Today: Patient and report no events overnight. Pain has improved since yesterday. denies any episodes of coughing with meals. Patient continues to cough when drinking water. Review of Systems General: No Chills, No Night Sweats HEENT: No Head Aches, No Sinus Congestion, No Post Nasal Drip Pulmonary: Dyspnea, Cough Cardiovascular: No: Chest Pain Gastrointestinal: No: Nausea, Vomiting, Abdominal Pain, Diarrhea, Constipation Genitourinary: No Hematuria; Retention Neurological: Weakness, Change in speech; No: Seizures Focused Exam Respiratory: Crackles (L>R) Capillary Refill: Less Than 3 Seconds Objective Exam Last Set of Vital Signs Vital Signs Date Time Temp Pulse Resp B/P (MAP) Pulse Ox O2 Delivery O2 Flow Rate FiO2 05/22/22 09:16 Nasal Cannula 2.00 05/22/22 07:40 37.3 81 20 129/60 (83) 95 Capillary Refill : Less Than 3 Seconds I&O Intake and Output 05/22/22 00:00 Intake Total 560 ml Output Total 1170 ml Balance -610 ml Intake Oral 560 ml Output Urine Total 1170 ml # Bowel Movements 2 General: Alert, No Acute Distress HEENT: Atraumatic, Mucous Memb Moist/[place] Neck: Supple, No JVD Lungs: Other (Crackles appreciated in bilateral lung bases L>R) Heart: Regular Rate, No Murmurs Abdomen: Normal Bowel Sounds, Soft, No Tenderness Extremities: No Clubbing, No Cyanosis Skin: No Rashes Neuro: Other (dysarthria and right-sided hemiparesis with right-sided neglect) Psych/Mental Status: Mood NL Results Lab Laboratory Tests 05/21/22 15:26: Glucometer 213H 05/21/22 20:24: Glucometer 150H 05/22/22 06:05: White Blood Count 24.9H, Red Blood Count 3.30L, Hemoglobin 9.7L, Hematocrit 31L, Mean Corpuscular Volume 93, Mean Corpuscular Hemoglobin 29, Mean Corpuscular Hemoglobin Concent 32, Red Cell Distribution Width 13.4, Platelet Count 484H, Mean Platelet Volume 10.6, Immature Granulocyte % (Auto) 1, Neutrophils (%) (Auto) 79H, Lymphocytes (%) (Auto) 11L, Monocytes (%) (Auto) 9, Eosinophils (%) (Auto) 0, Basophils (%) (Auto) 0, Neutrophils # (Auto) 19.6H, Lymphocytes # (Auto) 2.7, Monocytes # (Auto) 2.2H, Eosinophils # (Auto) 0.1, Basophils # (Auto) 0.1, Immature Granulocyte # (Auto) 0.2H, Neutrophils % (Manual) 82, Lymphocytes % (Manual) 12, Monocytes % (Manual) 6, Blood Morphology Comment NORMAL, Sodium Level 131L, Potassium Level 4.9, Chloride Level 99, Carbon Dioxide Level 19L, Anion Gap 13, Blood Urea Nitrogen 49H, Creatinine 2.63#H, Estimat Glomerular Filtration Rate 25, BUN/Creatinine Ratio 19, Glucose Level 134H, Calcium Level 9.2, Corrected Calcium 9.8, Total Bilirubin 0.8, Aspartate Amino Transf (AST/SGOT) 30, Alanine Aminotransferase (ALT/SGPT) 30, Alkaline Phosphatase 152H, Total Protein 7.4, Albumin 3.3 05/22/22 08:19: Glucometer 148H Microbiology 05/12/22 Urine Culture - Final, Complete Strep Species, Gamma-Hemolytic Assessment/Plan Assessment/Plan Assess & Plan/Chief Complaint (1) Compression fracture of T12 vertebra Status: Acute Assessment & Plan: Pain controlled, no acute intervention per Surgery. PT. Working on SNF placement, but desired facility won't have space for several days, may go home with home PT prior. IRF eval completed, waiting on insurance prior auth. (2) Ischemic stroke Status: Acute Assessment & Plan: MRI on 05/17 showed multiple bilateral acute/subacute infarcts suspicious for showering emboli. Echo, carotid US and telemetry unremarkable. M RA obtained, see below. On aspirin and plavix for dual antiplatelet therapy for at least 21 days. Can't tolerate statin. Continue PT/OT/ST. (3) Stenosis of both middle cerebral arteries Status: Acute Assessment & Plan: 05/19 MRA showing 90-99% stenosis of both MCA M1 segments. Called Stroke Neuro at and they recommended continue dual antiplatelet therapy, continue to monitor for cardiac source which they suspect is most likely, will need skilled nursing monitor. Unfortunately he cannot tolerate statin, continue PCSK9. (4) Leukocytosis Status: Acute Assessment & Plan: White count continues to elevate, today at 24.9. CXR done 05/21 revealed enlarged heart, minimal atelectasis/infiltrate in L. lung base consistent with aspiration pneumonia. UA negative for infection (05/20). Started on Zosyn 05/21. (4) Frequent falls Status: Acute Assessment & Plan: PT/OT (5) Hypertension Status: Chronic Assessment & Plan: Only on low dose lisinopril at home, amlodipine 10 mg started inpatient. (6) CKD (chronic kidney disease) stage 3, GFR 30-59 ml/min Status: Chronic Assessment & Plan: CKD3 and Cr baseline around 1.4 to 1.6. Today Cr elevated at 2.63. Continue to monitor. (7) Hypothyroidism Status: Chronic Assessment & Plan: TSH 3.0 in Oct 2021 per clinic records. Continue home levothyroxine. (8) Diabetes mellitus, type 2 Status: Chronic (9) COPD (chronic obstructive pulmonary disease) Status: Chronic (10) Hyperlipidemia Status: Chronic Assessment & Plan: Intolerant of statin, recently started on Praluent outpatient. (11) DVT prophylaxis Status: Acute Assessment & Plan: Enoxaparin KALLIE VARGAS DO 05/23/22 0553: Subjective Subjective/Events-last exam Pt is doing a lot better Insurance denied in-patient rehab Echocardiogram reviewed, normal ejection fraction Chest x-ray shows left lower lobe pneumonia Creatinine is 2.6 WBC count is 24,000 Dysphagia 1 diet initiated due to aspiration risk Review of Systems General: Fatigue, Malaise Musculoskeletal: back pain Neurological: Confusion Objective Exam General: Alert, No Acute Distress Lungs: Clear to Auscultation Heart: Regular Rate Assessment/Plan Assessment/Plan Assess & Plan/Chief Complaint Assessment: T12 compression fracture Immobile Urinary retention requiring Gaffney catheter placement Parkinson's Dementia? Subacute CVA on MRI 05/17/22 Hypertension Hyperlipidemia Diabetes Plan: Pain control Supportive care Monitor closely Urinary retention management Needs facility PT OT Supervisory-Addendum Brief Verification & Attestation Participated in pt care: history, MDM, physical Personally performed: exam, history, MDM, supervision of care Care discussed with: Medical Student Procedures: n/a Results interpretation: Verified all documentation Verification and Attestation of Medical Student E/M Service A medical student performed and documented this service in my presence. I reviewed and verified all information documented by the medical student and made modifications to such information, when appropriate. I personally performed the physical exam and medical decision making. Kallie Vargas, May 23, 2022,05:50 FEDE OLMOS May 22, 2022 11:17 KALLIE VARGAS DO May 23, 2022 05:53
--- NOTE | 2022-05-22 12:05 | Occupational Ther Daily Note ---
OT Current Status-Daily Note Subjective Pt family member in room and agreeable to OT tx. Mental Status/Objective Patient Orientation: Confused ADL-Treatment Therapy Code Descriptions/Definitions Functional [place] Measure: 0=Not Assessed/NA 4=Minimal Assistance 1=Total Assistance 5=Supervision or Setup 2=Maximal Assistance 6=Modified [place] 3=Moderate Assistance 7=Complete IndependenceSCALE: Activities may be completed with or without assistive devices. 0-Prxhvujtbx-swafgmz completes the activity by him/herself with no assistance from a helper. 5-Set-up or Clean-up Assistance-helper sets up or cleans up; patient completes activity. [place] assists only prior to or following the activity. 4-Supervision or Touching Assistance-helper provides verbal cues and/or touching/steadying and/or contact guard assistance as patient completes activity. Assistance may be provided throughout the activity or intermittently. 3-Partial/Moderate Assistance-helper does LESS THAN HALF the effort. [place] lifts, holds or supports trunk or limbs, but provides less than half the effort. 2-Substantial/Maximal Assistance-helper does MORE THAN HALF the effort. [place] lifts or holds trunk or limbs and provides more than half the effort. 5-Hbwtnkztf-yostpp does ALL the effort. Patient does none of the effort to complete the activity. Or, the assistance of 2 or more helpers is required for the patient to complete the activity. If activity was not attempted, code reason: 7-Patient Refused. 9-Not Applicable-not attempted and the patient did not perform the activity before the current illness, exacerbation or injury. 10-Not Attempted due to Environmental Limitations-(lack of equipment, weather restraints, etc.). 88-Not Attempted due to Medical Conditions or Safety Concerns. Other Treatment Pt's family member discussed his need to get back into bed to nurse. Pt stated that his back hurt to sit in recliner. Nursing stated that they would help transfer later. Pt completed oral hygiene with Judith to put toothpaste on sponge and cues to place sponge in mouth. Pt also completed facewashing with CBA. Nursing entered room to perform transfer to bed to recliner. Pt donned brief and completed bottom cleansing with Dep due to limited reach and standing balance. Pt transferred to EOB with MaxA for cueing and fpr standing balance. Pt then transferred from EOB to supine with Dep. Pt's call light in reach and all needs met. OT Residential Goals Settlement Clerk Goals Time Frame: May 31, 2022 Oral Hygiene (QC): 4 Toileting Hygiene (QC): 4 Upper Body Dressing (QC): 4 Lower Body Dressing (QC): 4 1=Demonstrate adherence to instructed precautions during ADL tasks. 2=Patient will verbalize/demonstrate understanding of assistive devices/modifications for ADL. 3=Patient will improve strength/tolerance for activity to enable patient to perform ADL's. OT Education/Plan Problem List/Assessment Assessment: Decreased Activ Tolerance, Decreased UE Strength, Dependent Transfers, Impaired Bed Mobility, Impaired Cognition, Impaired Funct Balance, Impaired I ADL's, Impaired Self-Care Skills Discharge Recommendations Plan/Recommendations: Continue POC Treatment Plan/Plan of Care Patient would benefit from OT for education, treatment and training to promote independence in ADL's, mobility, safety and/or upper extremity function for ADL's. Plan of Care: ADL Retraining, Caregiver Training, Functional Mobility, Group Exercise/Act as Ind, UE Funct Exercise/Act Treatment Duration: May 31, 2022 Frequency: 3 times per week (3-5x/week) Estimated Hrs Per Day: .25 hour per day Agreement: Yes Rehab Potential: Guarded Time/GCodes Start Time: 11:07 Stop Time: 11:22 Total Time Billed (hr/min): 15 Billed Treatment Time 1 visit, 1, ADL (15min) Ruthie Heath May 22, 2022 12:05
[2022-05-22 12:07] VITALS: BP 106/61
--- NOTE | 2022-05-22 14:04 | Physical Therapy Progress Note ---
Therapy Progress Note Patient unable to tolerate activity on this date due to increase agitation/confusion. Family present. Will attempt in a.m. 1 visit no treatment rendered. AUGUSTUS HOOPER PT May 22, 2022 14:04
--- NOTE | 2022-05-22 14:09 | Consultation-Cardiology ---
HPI-Cardiology Cardiology Consultation: Date of Consultation 05/22/22 Time Seen by a Provider: 14:00 Date of Admission 05-12-22 Attending Physician Vinh Paulino MD Admitting Physician Admitting Physician: Kallie Jiang DO Attending Physician: Kallie Jiang DO Consulting Physician Kortney Little MD HPI: Chief Complaint: CVA Mr. Ventura is a 71 yr old male admitted on 05-12-[address] [facility] with CVA. He is lethargic and aphasic at this time. at the bedside reports he began to have frequent falls at home a couple days ago. He had previously been ambulatory without any difficulty. She reports d/t the increase in falls she brought him to the ED, She reports the day after his admission she noticed he had facial droop and left sided weakness that had developed. She denies him reporting any episodes of CP, SOB or palpitations prior to his admission. No report of him having LE swelling. No report of him having syncope or near syncope. Review of Systems-Cardiology Review of Systems Other comments ROS to the extent it could be obtained from spouse is as per [facility] KUB-Fsypmy-Squmyb Hx Patient Social History Marrital Status: Employed/Student: retired Smoking Status: Unknown if Ever Smoked 2nd Hand Smoke Exposure: No Have you traveled recently?: No Alcohol Use?: No Pt feels they are or have been: No Immunizations Up To Date Tetanus Booster (TDap): More than 5yrs Date of Pneumonia Vaccine: Aug 21, 2016 Date of Influenza Vaccine: Aug 24, 2020 Past Medical History PMH As described under Assessment. Family Medical History Family Medical History: Spouse and sister at the bedside report he has 11 brothers and sisters. They are unaware of any family members having CAD, SCD or stroke. Family History: 19 FATHER Arthritis Asthma Cataracts Completed stroke Diabetes mellitus Hypertension 19 MOTHER Alzheimer's disease Arthritis Cataracts Diabetes mellitus Hypertension G8 BROTHER Alcoholism Cataracts Deafness or hearing loss Diabetes mellitus Hypertension G8 BROTHER Alcoholism Cataracts Diabetes mellitus Hypertension G8 BROTHER Diabetes mellitus Hypertension G8 BROTHER Hypertension Respiratory disorder G8 SISTER Cataracts Diabetes mellitus Hypertension G8 SISTER Cataracts Diabetes mellitus Hypertension G8 SISTER Cataracts Diabetes mellitus Hypertension G8 SISTER Completed stroke Hypertension G8 SISTER Hypertension G8 SISTER Hypertension G8 SISTER Hypertension Allergies and Home Medications Allergies Coded Allergies: choline fenofibrate (Verified Allergy, Unknown, 12/07/17) gemfibrozil (Verified Allergy, Unknown, 12/07/17) niacin (Verified Allergy, Unknown, 12/07/17) pioglitazone (Verified Allergy, Unknown, 12/07/17) Patient Home Medication List Albuterol Sulfate (Proair Hfa) 1 Puff Puff, 2 PUFF IH Q4H PRN for SHORTNESS OF BREATH, (Reported) Entered as Reported by: ANEESH CORREA on 05/12/221620 Last Action: Continued Alirocumab (Praluent Pen) 75 Mg/Ml Pen.injctr, 75 MG INJ EVERY 2 WEEKS, (Reported) Entered as Reported by: ANEESH CORREA on 05/12/221620 Last Action: Converted Aspirin (Aspirin EC) 81 Mg Tablet.dr, 81 MG PO DAILY, (Reported) Entered as Reported by: ANEESH CORREA on 05/12/221620 Last Action: Continued Colesevelam HCl (Welchol) 625 Mg Tablet, 625 MG PO DAILY, (Reported) Entered as Reported by: ROSMERY MENSAH on 12/07/17 0932 Last Action: Converted Colesevelam HCl (Welchol) 625 Mg Tablet, 625 MG PO DAILY PRN for LOOSE STOOLS, (Reported) Entered as Reported by: ANEESH CORREA on 05/12/221620 Last Action: Converted Hydrocodone/Acetaminophen (Hydrocodone-Acetamin 5-325 mg) 5 Mg-325 Mg Tablet, 1 EA PO Q8H PRN for PAIN-MODERATE (5-7), (Reported) Entered as Reported by: ANEESH CORREA on 05/12/221620 Last Action: Held Insulin Aspart (Novolog Flexpen) 100 Unit/Ml (3 Ml) Solution, 10 UNITS SQ AC, (Reported) Entered as Reported by: ANEESH CORREA on 05/12/221620 Last Action: Converted Insulin Degludec (Tresiba Flextouch U-200) 200 Unit/Ml (3 Ml) Insuln.pen, 70 UNITS SC DAILY, (Reported) Entered as Reported by: ANEESH CORREA on 05/12/221620 Last Action: Converted Levothyroxine Sodium (Levothyroxine Sodium) 125 Mcg Tablet, 125 MCG PO DAILY, (Reported) Entered as Reported by: ANEESH CORREA on 05/12/221620 Last Action: Continued Lisinopril (Lisinopril) 2.5 Mg Tablet, 2.5 MG PO DAILY, (Reported) Entered as Reported by: ANEESH CORREA on 05/12/221620 Last Action: Converted Metoclopramide HCl (Metoclopramide HCl) 10 Mg Tablet, 10 MG PO DAILY, (Reported) Entered as Reported by: ANEESH CORREA on 05/12/221620 Last Action: Continued Mirabegron (Myrbetriq) 50 Mg Tab.er.24h, 50 MG PO DAILY, (Reported) Entered as Reported by: ANEESH CORREA on 05/12/221620 Last Action: Converted Omeprazole (Omeprazole) 20 Mg Capsule.dr, 20 MG PO HS PRN for HEARTBURN, (Reported) Entered as Reported by: ANEESH CORREA on 05/12/221620 Last Action: New Order Venlafaxine HCl (Venlafaxine HCl) 75 Mg Tab, 75 MG PO DAILY, (Reported) Entered as Reported by: ROSMERY MENSAH on 12/07/17940 Last Action: Continued Physical Exam-Cardiology Physical Exam Vital Signs/I&O 05/22/22 05/22/22 05/22/22 05/22/22 03:31 07:00 07:30 07:40 Temp 37.4 37.3 Pulse 82 84 81 Resp 20 20 B/P (MAP) 121/67 (85) 129/60 (83) Pulse Ox 91 95 O2 Delivery Nasal Cannula Room Air Nasal Cannula O2 Flow Rate 2.00 2.00 05/22/22 05/22/22 09:16 12:07 Temp 36.7 Pulse 84 Resp 22 B/P (MAP) 106/61 (76) Pulse Ox 94 O2 Delivery Nasal Cannula Room Air O2 Flow Rate 2.00 05/21/22 23:59 Intake Total 460 ml Output Total 1050 ml Balance -590 ml Capillary Refill : Less Than 3 Seconds Constitutional: other (aphasic, lethargic) Neck: No carotid bruit; carotid pulses are 2 + bilaterally Respiratory: No accessory muscle use, No respiratory distress; chest expansion is symmetric, chest is bilaterally symmetric, other (diminished bases with poor inspiratory effort) Cardiovascular: regular rate-rhythm; No JVD; S1 and S2 Gastrointestinal: soft, round, audible bowel sounds Extremities: no lower extremity edema bilateral Neurologic/Psychiatric: other (lethergic, aphasic, not following commands to participate in neuro exam; moves extremities) Skin: No rash on exposed areas, No ulcerations on exposed areas Data Review Labs Laboratory Tests 05/21/22 15:26: Glucometer 213H 05/21/22 20:24: Glucometer 150H 05/22/22 06:05: White Blood Count 24.9H, Red Blood Count 3.30L, Hemoglobin 9.7L, Hematocrit 31L, Mean Corpuscular Volume 93, Mean Corpuscular Hemoglobin 29, Mean Corpuscular Hemoglobin Concent 32, Red Cell Distribution Width 13.4, Platelet Count 484H, Mean Platelet Volume 10.6, Immature Granulocyte % (Auto) 1, Neutrophils (%) (Auto) 79H, Lymphocytes (%) (Auto) 11L, Monocytes (%) (Auto) 9, Eosinophils (%) (Auto) 0, Basophils (%) (Auto) 0, Neutrophils # (Auto) 19.6H, Lymphocytes # (Auto) 2.7, Monocytes # (Auto) 2.2H, Eosinophils # (Auto) 0.1, Basophils # (Auto) 0.1, Immature Granulocyte # (Auto) 0.2H, Neutrophils % (Manual) 82, Lymphocytes % (Manual) 12, Monocytes % (Manual) 6, Blood Morphology Comment NORMAL, Sodium Level 131L, Potassium Level 4.9, Chloride Level 99, Carbon Dioxide Level 19L, Anion Gap 13, Blood Urea Nitrogen 49H, Creatinine 2.63#H, Estimat Glomerular Filtration Rate 25, BUN/Creatinine Ratio 19, Glucose Level 134H, Calcium Level 9.2, Corrected Calcium 9.8, Total Bilirubin 0.8, Aspartate Amino Transf (AST/SGOT) 30, Alanine Aminotransferase (ALT/SGPT) 30, Alkaline Phosphatase 152H, Total Protein 7.4, Albumin 3.3 05/22/22 08:19: Glucometer 148H 05/22/22 11:31: Glucometer 219H Microbiology 05/12/22 Urine Culture - Final, Complete Strep Species, Gamma-Hemolytic Laboratory Tests 05/21/22 06:08 05/22/22 06:05 Radiology NAME: [facility]RAVANI [facility] REC#: [id number] PT STATUS: ADM IN : 1950 PHYSICIAN: PAULA SERRANO MD ADMIT DATE: 05/12/22 Signed Date of Exam:05/17/22 MRI BRAIN W/O CONTRAST PROCEDURE: MR imaging of the brain without contrast. TECHNIQUE: Multiplanar, multisequence MR imaging of the brain was performed without contrast. INDICATION: History of falls. FINDINGS: Diffusion-weighted imaging does show several small foci of diffusion restriction in bilateral cerebral hemispheres. The largest area is on the right side in the zaidi radiata. There are several punctate foci in the high parietal lobes bilaterally. There is also a small focus of diffusion restriction in the left posterior parietal and occipital lobe as well as small foci the right temporal lobe. Normal expected flow-voids within the carotid siphons are seen. There is no midline shift. No acute intra-axial or extra-axial hemorrhage is detected. Corpus callosum is unremarkable. The sella and parasellar structures are unremarkable. IMPRESSION: There are multiple small foci of diffusion restriction involving bilateral cerebral hemispheres, suspicious of showering emboli. Findings are consistent with acute/subacute infarcts. No intracranial hemorrhage is detected. Dictated by: Dictated on workstation # [id number] Dict: 05/17/22 1313 Trans: 05/17/22 1558 [id number] Interpreted by: THELMA AYALA MD Electronically signed by: THELMA AYALA MD 05/17/22 1558 NAME: SRAVANI V[facility]URA [facility] REC#: [id number] PT STATUS: ADM IN : 1950 PHYSICIAN: PAULA SERRANO MD ADMIT DATE: 05/12/22 Signed Date of Exam:05/17/22 US CAROTID DUANE COMPLETE [id number] PROCEDURE: US carotid duplex, bilateral. TECHNIQUE: Multiple real-time grayscale images were obtained over the carotid arteries in various projections, bilaterally. Additional spectral analysis and color Doppler duplex images were also obtained. INDICATION: Stroke Parameters based on the consensus panel Vergara-Scale and Doppler ultrasound criteria published September 2003, Radiology, Volume 229. DOPPLER (peak systolic velocity M/S Right Left CCA 1.08 .81 ICA Proximal .51 .63 ICA Mid .45 .53 ICA Distal .29 NOT SEEN RATIO .47 .77 ECA .81 .58 VERT .58 .62 Mild plaque is seen in the carotid bulbs and bifurcations. Waveforms are normal. Normal antegrade flow within both vertebral arteries. IMPRESSION: Less than 50% stenosis of the bilateral internal carotid arteries by velocity and ratio criteria. Dictated by: Dictated on workstation # [id number] Dict: 05/17/22 1656 Trans: 05/17/221726 CVB Interpreted by: GAY DOMINIQUE DO Electronically signed by: GAY DOMINIQUE DO 05/17/221726 [facility] [id number] PT STATUS: ADM IN : 1950 PHYSICIAN: PAULA SERRANO MD ADMIT DATE: 05/12/22 Signed Date of Exam:05/19/22 MRA HEAD W/O CONTRAST PROCEDURE: MR angiography of the brain without the use of contrast. TECHNIQUE: 3D qtct-mo-aaiiqd non contrast enhanced MR angiography of the head was performed. A source data was reformatted into rotating MIP projections. INDICATION: Stroke. COMPARISON: MRI brain 05/17/2022. FINDINGS: Noncontrast iood-wd-dbzyap intracranial MRA demonstrates high-grade stenosis of 90-99% of the left M1 segment. There remains flow in the more distal M2 and M3 segments which appear diminutive. There is also high-grade stenosis of the right M1 segment of 90-99% with some persistent flow in the more distal right MCA branches. The intracranial vertebral, internal carotid, basilar, bilateral anterior cerebral and middle cerebral arteries are widely patent. No aneurysms are identified. IMPRESSION: High-grade narrowing of 90-99% of both MCA M1 segments. Findings discussed with Paula Serrano at 4:45 p.m. on 05/19/2022. Dictated by: Dictated on workstation # [id number] Dict: 05/19/22 1629 Trans: 05/19/221711 [id number] Interpreted by: SHYAY TIRADO MD Electronically signed by: SHAYY TIRADO MD 05/19/221711 [facility] [id number] PT STATUS: ADM IN : 1950 PHYSICIAN: DERICK AN MD ADMIT DATE: 05/12/22 Signed Date of Exam:05/21/22 CHEST 1 VIEW, AP/PA ONLY INDICATION: Leukocytosis, hypoxia. TECHNIQUE: Single view chest 10:16 AM. CORRELATION STUDY: 05/12/2022 FINDINGS: Rotated towards the left. Heart size enlarged. Vasculature slightly prominent. Question minimal atelectasis or infiltrate in the left lung base. Likely old left posterior rib fractures. IMPRESSION: 1. Cardiac enlargement with borderline vasculature. Question minimal atelectasis or infiltrate in the left lung base. Dictated by: Dictated on workstation # [id number] Dict: 05/21/22 1030 Trans: 05/21/22 1042 [facility] [id number] Interpreted by: BRENDAN VEE DO Electronically signed by: BRENDAN VEE DO 05/21/22 1042 ECG Impression ECG Initial ECG Rhythm: Normal Sinus A/P-Cardiology Assessment/Admission Diagnosis CVA with left sided facial droop and left sided weakness and freq falls - MRI 05-12-22: There are multiple small foci of diffusion restriction involving bilateral cerebral hemispheres, suspicious of showering emboli. Findings are consistent with acute/subacute infarcts. No intracranial hemorrhage is detected. - 05/19/22 MRA showing 90-99% stenosis of both MCA M1 segments. Stroke Neuro at has been contacted by medical services and they recommended continue dual antiplatelet therapy, continue to monitor for cardiac source which they suspect is most likely - Tele has indicated no arrhythmia thus far - advise ILR implant be done prior to D/C Carotid dz - u/s of 05-17-22: Less than 50% stenosis of the bilateral internal carotid arteries by velocity and ratio criteria. Leukocytosis - undetermined etiology - management per medical services HTN HLD - intolerant to statin DM 2 Peripheral neuropathy COPD - quit smoking 4 yrs ago CKD 3 - worsening renal function - stop Lisinopril BPH ? Sleep apnea Discussion and Recomendations Thromboembolic CVA with aphasia, left sided weakness and facial droop - management per stroke team - MRI shows for showering stroke - source undetermined - advise ILR implant to eval for arrhythmia as cause - discussed with family - they wish to think about it - Continue ASA and Plavix - Echocardiogram today Leukocytosis - undetermined etiology - management per medical services CKD 3 with worsening Cr - stop CAIO (-) - monitor lab closely Further recs will be based on his hospital course We would like to thank medical services for this consult ROSALIND DOWNING May 22, 2022 14:09
[2022-05-22] MEDS: ALPRAZolam 1 MG (XANAX) TAB PO PRN ×2 (14:22→15:35)
[2022-05-22 15:07] VITALS: BP 125/64
[2022-05-22] MEDS ORDERED: ENOXAPARIN INJECTION 30 MG/0.3 ML SYR SC SCH (16:00)
--- NOTE | 2022-05-22 19:05 | Consultation-Cardiology ---
HPI-Cardiology Cardiology Consultation: Date of Consultation 05/22/22 Time Seen by a Provider: 17:20 Date of Admission Attending Physician Vinh Paulino MD Admitting Physician Admitting Physician: Kallie Jiang DO Attending Physician: Kallie Jiang DO Consulting Physician ALEJO DE SANTIAGO MD, MA, FACP, FACC, FSCAI, CCDS Physician requesting consult: Dr Jiang HPI: Chief Complaint: CVA Mr. Ventura is a 71 yr old male admitted on 05-12-22 to [facility] with CVA. He is lethargic and aphasic at this time. at the bedside reports he began to have frequent falls at home a couple days ago. He had previously been ambulatory without any difficulty. She reports d/t the increase in falls she brought him to the ED, She reports the day after his admission she noticed he had facial droop and left sided weakness that had developed. She denies him reporting any episodes of CP, SOB or palpitations prior to his admission. No report of him having LE swelling. No report of him having syncope or near syncope. LES-[place] Hx Patient Social History Marrital Status: Employed/Student: retired Smoking Status: Unknown if Ever Smoked 2nd Hand Smoke Exposure: No Have you traveled recently?: No Alcohol Use?: No Pt feels they are or have been: No Immunizations Up To Date Tetanus Booster (TDap): More than 5yrs Date of Pneumonia Vaccine: Aug 21, 2016 Date of Influenza Vaccine: Aug 24, 2020 Past Medical History PMH As described under Assessment. Family Medical History Family Medical History: Spouse and sister at the bedside report he has 11 brothers and sisters. They are unaware of any family members having CAD, SCD or stroke. Family History: Alcoholism G8 BROTHER G8 BROTHER Alzheimer's disease 19 MOTHER Arthritis 19 FATHER 19 MOTHER Asthma 19 FATHER Cataracts 19 FATHER 19 MOTHER G8 BROTHER G8 BROTHER G8 SISTER G8 SISTER G8 SISTER Completed stroke 19 FATHER G8 SISTER Deafness or hearing loss G8 BROTHER Diabetes mellitus 19 FATHER 19 MOTHER G8 BROTHER G8 BROTHER G8 BROTHER G8 SISTER G8 SISTER G8 SISTER Hypertension 19 FATHER 19 MOTHER G8 BROTHER G8 BROTHER G8 BROTHER G8 BROTHER G8 SISTER G8 SISTER G8 SISTER G8 SISTER G8 SISTER G8 SISTER G8 SISTER Respiratory disorder G8 BROTHER No Family History of: AIDS Abdominal aortic aneurysm Liberty's disease Aphasia Cancer of mouth Cardiovascular disease Colon cancer Congenital disease Congenital heart disease Coronary thrombosis Cystic fibrosis Dementia Drug abuse Dysphasia Fibrocystic disease of breast Gastroenteritis Glaucoma Headache disorder Hypercholesterolemia Infertility Kidney disease Myocardial infarction Neoplasm Not obtainable due to adoption Osteoporosis Parkinson's disease Prostate cancer Psychosocial problem Seizure disorder Severe allergy Thyroid disease Tuberculosis Visual disorder Allergies and Home Medications Allergies Coded Allergies: choline fenofibrate (Verified Allergy, Unknown, 12/07/17) gemfibrozil (Verified Allergy, Unknown, 12/07/17) niacin (Verified Allergy, Unknown, 12/07/17) pioglitazone (Verified Allergy, Unknown, 12/07/17) Patient Home Medication List Home Medication List Reviewed: Yes Albuterol Sulfate (Proair Hfa) 1 Puff Puff, 2 PUFF IH Q4H PRN for SHORTNESS OF BREATH, (Reported) Entered as Reported by: ANEESH CORREA on 05/12/221620 Last Action: Continued Alirocumab (Praluent Pen) 75 Mg/Ml Pen.injctr, 75 MG INJ EVERY 2 WEEKS, (Reported) Entered as Reported by: ANEESH CORREA on 05/12/221620 Last Action: Converted Aspirin (Aspirin EC) 81 Mg Tablet.dr, 81 MG PO DAILY, (Reported) Entered as Reported by: ANEESH CORREA on 05/12/221620 Last Action: Continued Colesevelam HCl (Welchol) 625 Mg Tablet, 625 MG PO DAILY, (Reported) Entered as Reported by: ROSMERY MENSAH on 12/07/17 0941 Last Action: Converted Colesevelam HCl (Welchol) 625 Mg Tablet, 625 MG PO DAILY PRN for LOOSE STOOLS, (Reported) Entered as Reported by: ANEESH CORREA on 05/12/221620 Last Action: Converted Hydrocodone/Acetaminophen (Hydrocodone-Acetamin 5-325 mg) 5 Mg-325 Mg Tablet, 1 EA PO Q8H PRN for PAIN-MODERATE (5-7), (Reported) Entered as Reported by: ANEESH CORREA on 05/12/221620 Last Action: Held Insulin Aspart (Novolog Flexpen) 100 Unit/Ml (3 Ml) Solution, 10 UNITS SQ AC, (Reported) Entered as Reported by: ANEESH CORREA on 05/12/221620 Last Action: Converted Insulin Degludec (Tresiba Flextouch U-200) 200 Unit/Ml (3 Ml) Insuln.pen, 70 UNITS SC DAILY, (Reported) Entered as Reported by: ANEESH CORREA on 05/12/221620 Last Action: Converted Levothyroxine Sodium (Levothyroxine Sodium) 125 Mcg Tablet, 125 MCG PO DAILY, (Reported) Entered as Reported by: ANEESH CORREA on 05/12/221620 Last Action: Continued Lisinopril (Lisinopril) 2.5 Mg Tablet, 2.5 MG PO DAILY, (Reported) Entered as Reported by: ANEESH CORREA on 05/12/221620 Last Action: Converted Metoclopramide HCl (Metoclopramide HCl) 10 Mg Tablet, 10 MG PO DAILY, (Reported) Entered as Reported by: ANEESH CORREA on 05/12/221620 Last Action: Continued Mirabegron (Myrbetriq) 50 Mg Tab.er.24h, 50 MG PO DAILY, (Reported) Entered as Reported by: ANEESH CORREA on 05/12/221620 Last Action: Converted Omeprazole (Omeprazole) 20 Mg Capsule.dr, 20 MG PO HS PRN for HEARTBURN, (Reported) Entered as Reported by: ANEESH CORREA on 05/12/221620 Last Action: New Order Venlafaxine HCl (Venlafaxine HCl) 75 Mg Tab, 75 MG PO DAILY, (Reported) Entered as Reported by: ROSMERY MENSAH on 12/07/17 0941 Last Action: Continued Physical Exam-Cardiology Physical Exam Vital Signs/I&O 05/22/22 05/22/22 05/22/22 05/22/22 07:00 07:30 07:40 09:16 Temp 37.3 Pulse 84 81 Resp 20 B/P (MAP) 129/60 (83) Pulse Ox 95 O2 Delivery Room Air Nasal Cannula Nasal Cannula O2 Flow Rate 2.00 2.00 05/22/22 05/22/22 05/22/22 12:07 13:00 15:07 Temp 36.7 37.1 Pulse 84 83 84 Resp B/P (MAP) 106/61 (76) 125/64 (84) Pulse Ox 94 93 O2 Delivery Room Air Room Air 05/22/22 00:00 Intake Total 460 ml Output Total 1050 ml Balance -590 ml Capillary Refill : Less Than 3 Seconds Constitutional: other (aphasic, lethargic) Neck: No carotid bruit; carotid pulses are 2 + bilaterally Respiratory: No accessory muscle use, No respiratory distress; chest expansion is symmetric, chest is bilaterally symmetric, other (diminished bases with poor inspiratory effort) Cardiovascular: regular rate-rhythm; No JVD; S1 and S2 Gastrointestinal: soft, round, audible bowel sounds Extremities: no lower extremity edema bilateral Neurologic/Psychiatric: other (lethergic, aphasic, not following commands to participate in neuro exam; moves extremities) Skin: No rash on exposed areas, No ulcerations on exposed areas Data Review Labs Laboratory Tests 05/21/22 20:24: Glucometer 150H 05/22/22 06:05: White Blood Count 24.9H, Red Blood Count 3.30L, Hemoglobin 9.7L, Hematocrit 31L, Mean Corpuscular Volume 93, Mean Corpuscular Hemoglobin 29, Mean Corpuscular Hemoglobin Concent 32, Red Cell Distribution Width 13.4, Platelet Count 484H, Mean Platelet Volume 10.6, Immature Granulocyte % (Auto) 1, Neutrophils (%) (Auto) 79H, Lymphocytes (%) (Auto) 11L, Monocytes (%) (Auto) 9, Eosinophils (%) (Auto) 0, Basophils (%) (Auto) 0, Neutrophils # (Auto) 19.6H, Lymphocytes # (Auto) 2.7, Monocytes # (Auto) 2.2H, Eosinophils # (Auto) 0.1, Basophils # (Auto) 0.1, Immature Granulocyte # (Auto) 0.2H, Neutrophils % (Manual) 82, Lymphocytes % (Manual) 12, Monocytes % (Manual) 6, Blood Morphology Comment NORM AL, Sodium Level 131L, Potassium Level 4.9, Chloride Level 99, Carbon Dioxide Level 19L, Anion Gap 13, Blood Urea Nitrogen 49H, Creatinine 2.63#H, Estimat Glomerular Filtration Rate 25, BUN/Creatinine Ratio 19, Glucose Level 134H, Calcium Level 9.2, Corrected Calcium 9.8, Total Bilirubin 0.8, Aspartate Amino Transf (AST/SGOT) 30, Alanine Aminotransferase (ALT/SGPT) 30, Alkaline Phosphatase 152H, Total Protein 7.4, Albumin 3.3 05/22/22 08:19: Glucometer 148H 05/22/22 11:31: Glucometer 219H 05/22/22 15:12: Glucometer 209H Microbiology 05/12/22 Urine Culture - Final, Complete Strep Species, Gamma-Hemolytic A/P-Cardiology Assessment/Admission Diagnosis CVA with left sided facial droop and left sided weakness and freq falls - MRI 05-12-22: There are multiple small foci of diffusion restriction involving bilateral cerebral hemispheres, suspicious of showering emboli. Findings are consistent with acute/subacute infarcts. No intracranial hemorrhage is detected. - 05/19/22 MRA showing 90-99% stenosis of both MCA M1 segments. Stroke Neuro at has been contacted by medical services and they recommended continue dual antiplatelet therapy, continue to monitor for cardiac source which they suspect is most likely - Tele has indicated no arrhythmia thus far - advise ILR implant be done prior to D/C Carotid dz - u/s of 05-17-22: Less than 50% stenosis of the bilateral internal carotid arteries by velocity and ratio criteria. Leukocytosis - undetermined etiology - management per medical services HTN HLD - intolerant to statin DM 2 Peripheral neuropathy COPD - quit smoking 4 yrs ago CKD 3 - worsening renal function - stop Lisinopril BPH ? Sleep apnea Discussion and Recomendations Thromboembolic CVA with aphasia, left sided weakness and facial droop - Dr Jiang managing stroke - 90-99% stenosis of both MCA M1 segments has been reporte on radiologic studies. We recommend that the stroke team at this hospital discuss this with the stroke team at [facility] to make sure that intervention is not needed to these vessels (if not already consulted for this) - we recommend ILR for continuing eval for A Fib - Continue ASA and Plavix - Echocardiogram today Leukocytosis - undetermined etiology - management per medical services CKD 3 with worsening Cr - stop CAIO (-) - monitor lab closely Further recs will be based on his hospital course We would like to thank Dr Jiang for this consult ALEJO DE SANTIAGO MD [facility] CCDS May 22, 2022 19:05
[2022-05-22 19:34] VITALS: BP 123/56
[2022-05-22 23:20] VITALS: BP 112/64
[2022-05-23 03:58] VITALS: BP 105/61
[2022-05-23 05:37] LABS: BASOPHILS # (AUTO) 0.1 10^3/uL (0.0-0.1); BASOPHILS % (AUTO) 0 % (0-10); EOSINOPHILS # (AUTO) 0.2 10^3/uL (0.0-0.3); EOSINOPHILS % (AUTO) 1 % (0-10); HEMATOCRIT 29 % (40-54); HEMOGLOBIN 9.3 g/dL (13.3-17.7); LYMPHOCYTES # (AUTO) 2.8 10^3/uL (1.0-4.0); LYMPHOCYTES % (AUTO) 12 % (12-44); MEAN CORPUSCULAR HEMOGLOBIN 29 pg (25-34); MEAN CORPUSCULAR HGB CONC 32 g/dL (32-36); MEAN CORPUSCULAR VOLUME 89 fL (80-99); MEAN PLATELET VOLUME 10.2 fL (9.0-12.2); MONOCYTES # (AUTO) 1.6 10^3/uL (0.0-1.0); MONOCYTES % (AUTO) 7 % (0-12); NEUTROPHILS # (AUTO) 18.6 10^3/uL (1.8-7.8); NEUTROPHILS % (AUTO) 79 % (42-75); PLATELET COUNT 528 10^3/uL (130-400); WHITE BLOOD COUNT 23.5 10^3/uL (4.3-11.0)
[2022-05-23 05:47] LABS: ALBUMIN 3.3 GM/DL (3.2-4.5); POTASSIUM 4.3 MMOL/L (3.6-5.0)
[2022-05-23 05:48] LABS: CALCIUM 9.3 MG/DL (8.5-10.1)
[2022-05-23 05:49] LABS: TOTAL PROTEIN 7.6 GM/DL (6.4-8.2)
[2022-05-23 05:51] LABS: BILIRUBIN,TOTAL 0.7 MG/DL (0.1-1.0)
[2022-05-23 05:53] LABS: CREATININE SERUM 3.52 MG/DL (0.60-1.30)
[2022-05-23] MEDS: inSUlin ASPART (NovoLOG) 1 UNIT/0.01 ML (CHARGE PER UNIT) SC SCH ×3 (06:02→16:39)
[2022-05-23] MEDS: LEVOTHYROXINE 125 MCG (LEVOTHROID) TABLET PO SCH (06:26)
[2022-05-23] MEDS: PIPERACILLIN SODIUM/TAZOBACTAM 4.5 GM in NS (IVPB) 100 ML IV SCH (06:26)
[2022-05-23 07:26] VITALS: BP 133/68
[2022-05-23] MEDS ORDERED: NS IV 1000 ML 1,000 ML IV SCH (08:00)
[2022-05-23] MEDS: amLODIPine 10 MG (NORVASC) TAB PO SCH (09:00)
[2022-05-23] MEDS: CLOPIDOGREL 75 MG (PLAVIX) TABLET PO SCH (09:00)
[2022-05-23] MEDS: DOCUSATE SODIUM 100 MG (COLACE) CAP PO SCH (09:00)
[2022-05-23] MEDS: METOCLOPRAMIDE 10 MG (REGLAN) TAB PO SCH (09:00)
[2022-05-23] MEDS: VENlafaxine 75 MG (EFFEXOR) TAB PO SCH (09:00)
[2022-05-23] MEDS: MIRABEGRON 25 MG TAB (MYRBETRIQ) PO SCH (09:00)
[2022-05-23] MEDS: ASPIRIN E.C. 81 MG (ECOTRIN) TAB PO SCH (09:00)
[2022-05-23] MEDS: SENNOSIDES 8.6 MG (SENOKOT) TAB PO SCH (09:00)
--- NOTE | 2022-05-23 09:14 | Discharge Summary ---
Diagnosis/Chief Complaint Date of Admission May 12, 2022 at 14:34 Date of Discharge Discharge Date: May 23, 2022 Discharge Diagnosis Assessment: T12 compression fracture Immobile Urinary retention requiring Gaffney catheter placement Parkinson's Dementia? Subacute CVA on MRI 05/17/22 Hypertension Hyperlipidemia Diabetes Plan: Transfer to [facility] after speaking to Dr Pratt Discharge Summary Discharge Physical Examination Allergies: Coded Allergies: choline fenofibrate (Verified Allergy, Unknown, 12/07/17) gemfibrozil (Verified Allergy, Unknown, 12/07/17) niacin (Verified Allergy, Unknown, 12/07/17) pioglitazone (Verified Allergy, Unknown, 12/07/17) Vitals & I&Os Vital Signs Date Time Temp Pulse Resp B/P (MAP) Pulse Ox O2 Delivery O2 Flow Rate FiO2 05/23/22 17:09 36.1 79 22 115/71 91 Room Air 2.00 General Appearance: Other (lethargic) Respiratory: Clear to Auscultation Cardiovascular: Regular Rate Hospital Course Was the Problem List Reviewed?: Yes Pt had a complicated 12 day hospital course after he was admitted for acute kidney injury and compression fracture of T12. He couldn't ambulate so he was admitted. He began having delirium and acute on chronic renal insufficiency. Pt had an MRI showing a subacute stroke symbolic showering of emboli. Pt ultimately was placed on Zosyn for facility acquired pneumonia. Ultimately creatinine was elevated to 3.5. Nephrology was consulted and recommended transfer to [facility]. Overall prognosis is very poor. at the bedside is agreeable to the plan. Labs (last 24 hrs) Laboratory Tests 05/12/22 08:40: White Blood Count 12.9H, Red Blood Count 3.78L, Hemoglobin 10.9L, Hematocrit 33L , Mean Corpuscular Volume 87, Mean Corpuscular Hemoglobin 29, Mean Corpuscular Hemoglobin Concent 33, Red Cell Distribution Width 13.2, Platelet Count 364, Mean Platelet Volume 10.5, Immature Granulocyte % (Auto) 0, Neutrophils (%) (Auto) 64, Lymphocytes (%) (Auto) 24, Monocytes (%) (Auto) 9, Eosinophils (%) (Auto) 2, Basophils (%) (Auto) 1, Neutrophils # (Auto) 8.3H, Lymphocytes # (Auto) 3.1, Monocytes # (Auto) 1.2H, Eosinophils # (Auto) 0.2, Basophils # (Auto) 0.1, Immature Granulocyte # (Auto) 0.0, Sodium Level 134L, Potassium Level 4.4, Chloride Level 101, Carbon Dioxide Level 22, Anion Gap 11, Blood Urea Nitrogen 24H, Creatinine 1.52H, Estimat Glomerular Filtration Rate 49, BUN/Creatinine Ratio 16, Glucose Level 244H, Calcium Level 9.0, Corrected Calcium 9.4, Magnesium Level 1.5L, Total Bilirubin 0.4, Aspartate Amino Transf (AST/SGOT) 26, Alanine Aminotransferase (ALT/SGPT) 26, Alkaline Phosphatase 173H , Total Protein 7.4, Albumin 3.5 05/12/22 08:42: Troponin I < 0.028, C-Reactive Protein High Sensitivity 2.82H, Thyroid Stimulating Hormone (TSH) 2.89, Free Thyroxine 1.18 05/12/22 10:11: Influenza Type A (RT-PCR) Not Detected, Influenza Type B (RT-PCR) Not Detected, SARS-CoV-2 RNA (RT-PCR) Not Detected 05/12/22 10:30: Glucometer 242H 05/12/22 14:34: Lab Scanned Report Referred Lab Report 05/12/22 15:49: Urine Color YELLOW, Urine Clarity CLEAR, Urine pH 5.5, Urine Specific [place] >=1.030, Urine Protein 2+H, Urine Glucose (UA) 2+H, Urine Ketones NEGATIVE, Urine Nitrite NEGATIVE, Urine Bilirubin NEGATIVE, Urine Urobilinogen 0.2, Urine Leukocyte Esterase NEGATIVE, Urine RBC (Auto) 1+H, Urine RBC 0-2, Urine WBC 0-2, Urine Squamous Epithelial Cells 5-10, Urine Crystals NONE, Urine Bacteria FEWH, Urine Casts PRESENT, Urine Hyaline Casts 5-10H, Urine Mucus SMALLH, Urine Culture Indicated YES 05/12/22 20:26: Glucometer 251H 05/13/22 05:28: White Blood Count 9.4, Red Blood Count 3.44L, Hemoglobin 10.0L, Hematocrit 30L, Mean Corpuscular Volume 87, Mean Corpuscular Hemoglobin 29, Mean Corpuscular Hemoglobin Concent 33, Red Cell Distribution Width 13.3, Platelet Count 309, Mean Platelet Volume 10.5, Immature Granulocyte % (Auto) 0, Neutrophils (%) (Auto) 58, Lymphocytes (%) (Auto) 30, Monocytes (%) (Auto) 9, Eosinophils (%) (Auto) 2, Basophils (%) (Auto) 1, Neutrophils # (Auto) 5.4, Lymphocytes # (Auto) 2.8, Monocytes # (Auto) 0.9, Eosinophils # (Auto) 0.2, Basophils # (Auto) 0.1, Immature Granulocyte # (Auto) 0.0, Sodium Level 136, Potassium Level 4.4, Chloride Level 106, Carbon Dioxide Level 19L, Anion Gap 11, Blood Urea Nitrogen 26H, Creatinine 1.59H, Estimat Glomerular Filtration Rate 46, BUN/Creatinine Ratio 16, Glucose Level 250H, Calcium Level 8.7, Corrected Calcium 9.4, Total Bilirubin 0.3, Aspartate Amino Transf (AST/SGOT) 20, Alanine Aminotransferase (ALT/SGPT) 22, Alkaline Phosphatase 146H, Total Protein 6.4, Albumin 3.1L 05/13/22 10:17: Glucometer 165H 05/13/22 11:42: Glucometer 145H 05/13/22 16:16: Glucometer 83 05/13/22 20:43: Glucometer 85 05/14/22 05:20: White Blood Count 9.5, Red Blood Count 3.19L, Hemoglobin 9.4L, Hematocrit 29L, Mean Corpuscular Volume 90, Mean Corpuscular Hemoglobin 30, Mean Corpuscular Hemoglobin Concent 33, Red Cell Distribution Width 13.3, Platelet Count 326, Mean Platelet Volume 10.6, Immature Granulocyte % (Auto) 0, Neutrophils (%) (Auto) 54, Lymphocytes (%) (Auto) 34, Monocytes (%) (Auto) 9, Eosinophils (%) ( Auto) 3, Basophils (%) (Auto) 1, Neutrophils # (Auto) 5.1, Lymphocytes # (Auto) 3.2, Monocytes # (Auto) 0.8, Eosinophils # (Auto) 0.3, Basophils # (Auto) 0.1, Immature Granulocyte # (Auto) 0.0, Sodium Level 138, Potassium Level 3.9, Chloride Level 108H, Carbon Dioxide Level 21, Anion Gap 9, Blood Urea Nitrogen 21H, Creatinine 1.20, Estimat Glomerular Filtration Rate 65, BUN/Creatinine Ratio 18, Glucose Level 73, Calcium Level 8.7, Corrected Calcium 9.5, Total Bilirubin 0.3, Aspartate Amino Transf (AST/SGOT) 22, Alanine Aminotransferase (ALT/SGPT) 19, Alkaline Phosphatase 136, Total Protein 6.3L, Albumin 3.0L 05/14/22 05:25: Glucometer 79 05/14/22 11:24: Glucometer 144H 05/14/22 15:34: Glucometer 218H 05/14/22 19:54: Glucometer 243H 05/15/22 05:47: White Blood Count 10.0, Red Blood Count 3.68L, Hemoglobin 10.6L, Hematocrit 32L, Mean Corpuscular Volume 88, Mean Corpuscular Hemoglobin 29, Mean Corpuscular Hemoglobin Concent 33, Red Cell Distribution Width 13.2, Platelet Count 400, Mean Platelet Volume 10.3, Immature Granulocyte % (Auto) 1, Neutrophils (%) (Auto) 68, Lymphocytes (%) (Auto) 23, Monocytes (%) (Auto) 6, Eosinophils (%) (Auto) 2, Basophils (%) (Auto) 0, Neutrophils # (Auto) 6.8, Lymphocytes # (Auto) 2.3, Monocytes # (Auto) 0.6, Eosinophils # (Auto) 0.2, Basophils # (Auto) 0.0, Immature Granulocyte # (Auto) 0.1, Sodium Level 133L, Potassium Level 4.7, Chloride Level 101, Carbon Dioxide Level 21, Anion Gap 11, Blood Urea Nitrogen 20H, Creatinine 1.43H, Estimat Glomerular Filtration Rate 53, BUN/Creatinine Ratio 14, Glucose Level 242H, Calcium Level 9.3, Corrected Calcium 9.8, Total Bilirubin 0.4, Aspartate Amino Transf (AST/SGOT) 30, Alanine Aminotransferase (ALT/SGPT) 26, Alkaline Phosphatase 163H, Total Protein 7.3, Albumin 3.4 05/15/22 11:25: Glucometer 240H 05/15/22 15:14: Glucometer 242H 05/15/22 20:11: Glucometer 196H 05/16/22 05:13: White Blood Count 8.8, Red Blood Count 3.54L, Hemoglobin 10.2L, Hematocrit 31L, Mean Corpuscular Volume 89, Mean Corpuscular Hemoglobin 29, Mean Corpuscular Hemoglobin Concent 33, Red Cell Distribution Width 13.2, Platelet Count 396, Mean Platelet Volume 11.0, Immature Granulocyte % (Auto) 1, Neutrophils (%) (Auto) 52, Lymphocytes (%) (Auto) 36, Monocytes (%) (Auto) 9, Eosinophils (%) (Auto) 3, Basophils (%) (Auto) 1, Neutrophils # (Auto) 4.6, Lymphocytes # (Auto) 3.2, Monocytes # (Auto) 0.8, Eosinophils # (Auto) 0.2, Basophils # (Auto) 0.1, Immature Granulocyte # (Auto) 0.0, Sodium Level 136, Potassium Level 4.4, Chloride Level 101, Carbon Dioxide Level 21, Anion Gap 14, Blood Urea Nitrogen 26H, Creatinine 1.51H, Estimat Glomerular Filtration Rate 49, BUN/Creatinine Ratio 17, Glucose Level 184H, Calcium Level 9.2, Corrected Calcium 9.8, Total Bilirubin 0.2, Aspartate Amino Transf (AST/SGOT) 29, Alanine Aminotransferase (ALT/SGPT) 31, Alkaline Phosphatase 166H, Total Protein 7.1, Albumin 3.3 05/16/22 06:15: Glucometer 176H 05/16/22 11:25: Glucometer 272H 05/16/22 16:05: Glucometer 224H 05/16/22 20:27: Glucometer 223H 05/17/22 05:28: White Blood Count 12.2H, Red Blood Count 3.77L, Hemoglobin 10.8L, Hematocrit 33L , Mean Corpuscular Volume 88, Mean Corpuscular Hemoglobin 29, Mean Corpuscular Hemoglobin Concent 32, Red Cell Distribution Width 13.2, Platelet Count 439H, Mean Platelet Volume 10.1, Immature Granulocyte % (Auto) 0, Neutrophils (%) (Auto) 63, Lymphocytes (%) (Auto) 26, Monocytes (%) (Auto) 8, Eosinophils (%) (Auto) 2, Basophils (%) (Auto) 1, Neutrophils # (Auto) 7.6, Lymphocytes # (Auto) 3.2, Monocytes # (Auto) 1.0, Eosinophils # (Auto) 0.2, Basophils # (Auto) 0.1, Immature Granulocyte # (Auto) 0.1, Sodium Level 135, Potassium Level 5.0, Chloride Level 101, Carbon Dioxide Level 23, Anion Gap 11, Blood Urea Nitrogen 34H, Creatinine 1.58H, Estimat Glomerular Filtration Rate 47, BUN/Creatinine Ratio 22, Glucose Level 191H, Calcium Level 9.2, Corrected Calcium 9.6, Total Bilirubin 0.2, Aspartate Amino Transf (AST/SGOT) 34, Alanine Aminotransferase (ALT/SGPT) 35, Alkaline Phosphatase 150H, Total Protein 7.2, Albumin 3.5 05/17/22 05:31: Glucometer 191H 05/17/22 11:15: Glucometer 222H 05/17/22 15:29: Glucometer 211H 05/17/22 20:17: Glucometer 205H 05/18/22 06:08: White Blood Count 12.8H, Red Blood Count 3.51L, Hemoglobin 10.2L, Hematocrit 31L , Mean Corpuscular Volume 90, Mean Corpuscular Hemoglobin 29, Mean Corpuscular Hemoglobin Concent 33, Red Cell Distribution Width 13.4, Platelet Count 482H, Mean Platelet Volume 10.8, Immature Granulocyte % (Auto) 1, Neutrophils (%) (Auto) 63, Lymphocytes (%) (Auto) 27, Monocytes (%) (Auto) 8, Eosinophils (%) (Auto) 2, Basophils (%) (Auto) 0, Neutrophils # (Auto) 8.1H, Lymphocytes # (Aut o) 3.4, Monocytes # (Auto) 1.1H, Eosinophils # (Auto) 0.2, Basophils # (Auto) 0.1, Immature Granulocyte # (Auto) 0.1, Sodium Level 136, Potassium Level 4.7, Chloride Level 99, Carbon Dioxide Level 20L, Anion Gap 17H, Blood Urea Nitrogen 39H, Creatinine 1.82H, Estimat Glomerular Filtration Rate 39, BUN/Creatinine Ratio 21, Glucose Level 173H, Calcium Level 9.4, Corrected Calcium 9.8, Total Bilirubin 0.3, Aspartate Amino Transf (AST/SGOT) 30, Alanine Aminotransferase (ALT/SGPT) 37, Alkaline Phosphatase 170H, Total Protein 7.6, Albumin 3.5 05/18/22 06:28: Glucometer 183H 05/18/22 10:43: Glucometer 177H 05/18/22 15:26: Glucometer 272H 05/18/22 20:34: Glucometer 170H 05/19/22 05:07: White Blood Count 8.4, Red Blood Count 3.79L, Hemoglobin 10.9L, Hematocrit 33L, Mean Corpuscular Volume 88, Mean Corpuscular Hemoglobin 29, Mean Corpuscular Hemoglobin Concent 33, Red Cell Distribution Width 13.2, Platelet Count 154, Mean Platelet Volume 11.0, Immature Granulocyte % (Auto) 1, Neutrophils (%) (Auto) 55, Lymphocytes (%) (Auto) 35, Monocytes (%) (Auto) 8, Eosinophils (%) (Auto) 2, Basophils (%) (Auto) 1, Neutrophils # (Auto) 4.6, Lymphocytes # (Auto) 2.9, Monocytes # (Auto) 0.6, Eosinophils # (Auto) 0.2, Basophils # (Auto) 0.1, Immature Granulocyte # (Auto) 0.0, Sodium Level 133L, Potassium Level 4.5, Chloride Level 100, Carbon Dioxide Level 20L, Anion Gap 13, Blood Urea Nitrogen 37H, Creatinine 1.73H, Estimat Glomerular Filtration Rate 42, BUN/Creatinine Ratio 21, Glucose Level 168H, Glucometer 157H, Calcium Level 9.0, Corrected Calcium 9.5, Total Bilirubin 0.3, Aspartate Amino Transf (AST/SGOT) 28, Alanine Aminotransferase (ALT/SGPT) 33, Alkaline Phosphatase 152H, Total Protein 7.2, Albumin 3.4 05/19/22 10:32: Glucometer 281H 05/19/22 15:19: Glucometer 240H 05/19/22 20:02: Glucometer 271H 05/20/22 05:40: White Blood Count 16.3H, Red Blood Count 3.72L, Hemoglobin 10.6L, Hematocrit 33L , Mean Corpuscular Volume 90, Mean Corpuscular Hemoglobin 29, Mean Corpuscular Hemoglobin Concent 32, Red Cell Distribution Width 13.1, Platelet Count 505H, Mean Platelet Volume 10.2, Immature Granulocyte % (Auto) 1, Neutrophils (%) (Auto) 77H, Lymphocytes (%) (Auto) 14, Monocytes (%) (Auto) 7, Eosinophils (%) (Auto) 1, Basophils (%) (Auto) 0, Neutrophils # (Auto) 12.6H, Lymphocytes # (Auto) 2.3, Monocytes # (Auto) 1.2H, Eosinophils # (Auto) 0.1, Basophils # (Auto) 0.1, Immature Granulocyte # (Auto) 0.1, Neutrophils % (Manual) 79, Lymphocytes % (Manual) 12, Monocytes % (Manual) 8, Eosinophils % (Manual) 1, Blood Morphology Comment NORMAL, Sodium Level 134L, Potassium Level 5.1H, Chloride Level 99, Carbon Dioxide Level 21, Anion Gap 14, Blood Urea Nitrogen 40H, Creatinine 1.52H, Estimat Glomerular Filtration Rate 49, BUN/Creatinine Ratio 26, Glucose Level 221H, Calcium Level 9.5, Corrected Calcium 9.8, Total Bilirubin 0.3, Aspartate Amino Transf (AST/SGOT) 24, Alanine Aminotransferase (ALT/SGPT) 31, Alkaline Phosphatase 155H, Total Protein 7.7, Albumin 3.6 05/20/22 06:04: Glucometer 220H 05/20/22 10:21: Glucometer 186H 05/20/22 15:09: Glucometer 170H 05/20/22 16:13: Urine Color YELLOW, Urine Clarity CLEAR, Urine pH 5.0, Urine Specific [place] 1.025H, Urine Protein 2+H, Urine Glucose (UA) NEGATIVE, Urine Ketones NEGATIVE, Urine Nitrite NEGATIVE, Urine Bilirubin NEGATIVE, Urine Urobilinogen 0.2, Urine Leukocyte Esterase NEGATIVE, Urine RBC (Auto) NEGATIVE, Urine RBC NONE, Urine WBC NONE, Urine Squamous Epithelial Cells RARE, Urine Crystals PRESENTH, Urine Amorphous Sediment RARE RIMA URATESH, Urine Bacteria NEGATIVE, Urine Casts PRESENT, Urine Granular Casts RARE, Urine Mucus NEGATIVE, Urine Culture Indicated NO 05/20/22 20:04: Glucometer 223H 05/21/22 05:31: Glucometer 145H 05/21/22 06:08: White Blood Count 20.1H, Red Blood Count 3.73L, Hemoglobin 10.8L, Hematocrit 34L , Mean Corpuscular Volume 90, Mean Corpuscular Hemoglobin 29, Mean Corpuscular Hemoglobin Concent 32, Red Cell Distribution Width 13.3, Platelet Count 515H, Mean Platelet Volume 9.9, Immature Granulocyte % (Auto) 2, Neutrophils (%) (Auto) 74, Lymphocytes (%) (Auto) 14, Monocytes (%) (Auto) 9, Eosinophils (%) (Auto) 1, Basophils (%) (Auto) 0, Neutrophils # (Auto) 15.0H, Lymphocytes # (Auto) 2.9, Monocytes # (Auto) 1.7H, Eosinophils # (Auto) 0.1, Basophils # (Auto) 0.1, Immature Granulocyte # (Auto) 0.4H, Sodium Level 133L, Potassium Level 4.9, Chloride Level 99, Carbon Dioxide Level 21, Anion Gap 13, Blood Urea Nitrogen 38H, Creatinine 1.73H, Estimat Glomerular Filtration Rate 42, BUN/Creatinine Ratio 22, Glucose Level 126H, Calcium Level 9.6, Corrected Calcium 9.8, Total Bilirubin 0.4, Aspartate Amino Transf (AST/SGOT) 22, Alanine Aminotransferase (ALT/SGPT) 27, Alkaline Phosphatase 157H, Total Protein 8.1, Albumin 3.7 05/21/22 10:45: Glucometer 181H 05/21/22 15:26: Glucometer 213H 05/21/22 20:24: Glucometer 150H 05/22/22 06:05: White Blood Count 24.9H, Red Blood Count 3.30L, Hemoglobin 9.7L, Hematocrit 31L, Mean Corpuscular Volume 93, Mean Corpuscular Hemoglobin 29, Mean Corpuscular Hemoglobin Concent 32, Red Cell Distribution Width 13.4, Platelet Count 484H, Mean Platelet Volume 10.6, Immature Granulocyte % (Auto) 1, Neutrophils (%) (Auto) 79H, Lymphocytes (%) (Auto) 11L, Monocytes (%) (Auto) 9, Eosinophils (%) (Auto) 0, Basophils (%) (Auto) 0, Neutrophils # (Auto) 19.6H, Lymphocytes # (Auto) 2.7, Monocytes # (Auto) 2.2H, Eosinophils # (Auto) 0.1, Basophils # (Auto) 0.1, Immature Granulocyte # (Auto) 0.2H, Neutrophils % (Manual) 82, Lymphocytes % (Manual) 12, Monocytes % (Manual) 6, Blood Morphology Comment NORMAL, Sodium Level 131L, Potassium Level 4.9, Chloride Level 99, Carbon Dioxide Level 19L, Anion Gap 13, Blood Urea Nitrogen 49H, Creatinine 2.63#H, Estimat Glomerular Filtration Rate 25, BUN/Creatinine Ratio 19, Glucose Level 134H, Calcium Level 9.2, Corrected Calcium 9.8, Total Bilirubin 0.8, Aspartate Amino Transf (AST/SGOT) 30, Alanine Aminotransferase (ALT/SGPT) 30, Alkaline Phosphatase 152H, Total Protein 7.4, Albumin 3.3 05/22/22 08:19: Glucometer 148H 05/22/22 11:31: Glucometer 219H 05/22/22 15:12: Glucometer 209H 05/22/22 20:31: Glucometer 204H 05/23/22 05:20: White Blood Count 23.5H, Red Blood Count 3.24L, Hemoglobin 9.3L, Hematocrit 29L, Mean Corpuscular Volume 89, Mean Corpuscular Hemoglobin 29, Mean Corpuscular Hemoglobin Concent 32, Red Cell Distribution Width 13.2, Platelet Count 528H, Mean Platelet Volume 10.2, Immature Granulocyte % (Auto) 1, Neutrophils (%) (Auto) 79H, Lymphocytes (%) (Auto) 12, Monocytes (%) (Auto) 7, Eosinophils (%) (Auto) 1, Basophils (%) (Auto) 0, Neutrophils # (Auto) 18.6H, Lymphocytes # (Auto) 2.8, Monocytes # (Auto) 1.6H, Eosinophils # (Auto) 0.2, Basophils # (Auto) 0.1, Immature Granulocyte # (Auto) 0.2H, Sodium Level 134L, Potassium Level 4.3, Chloride Level 99, Carbon Dioxide Level 19L, Anion Gap 16H, Blood Urea Nitrogen 61H, Creatinine 3.52#H, Estimat Glomerular Filtration Rate 18, BUN/Creatinine Ratio 17, Glucose Level 110H, Calcium Level 9.3, Corrected Calcium 9.9, Total Bilirubin 0.7, Aspartate Amino Transf (AST/SGOT) 34, Alanine Aminotransferase (ALT/SGPT) 37, Alkaline Phosphatase 195H, Total Protein 7.6, Albumin 3.3 05/23/22 11:08: Glucometer 149H 05/23/22 15:17: Glucometer 140H Microbiology 05/12/22 Urine Culture - Final, Complete Strep Species, Gamma-Hemolytic Pending Labs Microbiology Date/Time Source Procedure Growth Status 05/12/22 15:49 Urine Clean Catch Urine Culture - Final Strep Species, Gamma-Hemolytic Complete Laboratory Tests 05/12/22 08:40: White Blood Count 12.9, Red Blood Count 3.78, Hemoglobin 10.9, Hematocrit 33, Mean Corpuscular Volume 87, Mean Corpuscular Hemoglobin 29, Mean Corpuscular Hemoglobin Concent 33, Red Cell Distribution Width 13.2, Platelet Count 364, Mean Platelet Volume 10.5, Immature Granulocyte % (Auto) 0, Neutrophils (%) (Au to) 64, Lymphocytes (%) (Auto) 24, Monocytes (%) (Auto) 9, Eosinophils (%) (Auto) 2, Basophils (%) (Auto) 1, Neutrophils # (Auto) 8.3, Lymphocytes # (Auto) 3.1, Monocytes # (Auto) 1.2, Eosinophils # (Auto) 0.2, Basophils # (Auto) 0.1, Immature Granulocyte # (Auto) 0.0, Sodium Level 134, Potassium Level 4.4, Chloride Level 101, Carbon Dioxide Level 22, Anion Gap 11, Blood Urea Nitrogen 24, Creatinine 1.52, Estimat Glomerular Filtration Rate 49, BUN/Creatinine Ratio 16, Glucose Level 244, Calcium Level 9.0, Corrected Calcium 9.4, Magnesium Level 1.5, Total Bilirubin 0.4, Aspartate Amino Transf (AST/SGOT) 26, Alanine Aminotransferase (ALT/SGPT) 26, Alkaline Phosphatase 173, Total Protein 7.4, Albumin 3.5 05/12/22 08:42: Troponin I < 0.028, C-Reactive Protein High Sensitivity 2.82, Thyroid Stimulating Hormone (TSH) 2.89, Free Thyroxine 1.18 05/12/22 10:11: Influenza Type A (RT-PCR) Not Detected, Influenza Type B (RT-PCR) Not Detected, SARS-CoV-2 RNA (RT-PCR) Not Detected 05/12/22 10:30: Glucometer 242 05/12/22 14:34: Lab Scanned Report Referred Lab Report 05/12/22 15:49: Urine Color YELLOW, Urine Clarity CLEAR, Urine pH 5.5, Urine Specific [place] >=1.030, Urine Protein 2+, Urine Glucose (UA) 2+, Urine Ketones NEGATIVE, Urine Nitrite NEGATIVE, Urine Bilirubin NEGATIVE, Urine Urobilinogen 0.2, Urine Leukocyte Esterase NEGATIVE, Urine RBC (Auto) 1+, Urine RBC 0-2, Urine WBC 0-2, Urine Squamous Epithelial Cells 5-10, Urine Crystals NONE, Urine Bacteria FEW, Urine Casts PRESENT, Urine Hyaline Casts 5-10, Urine Mucus SMALL, Urine Culture Indicated YES 05/12/22 20:26: Glucometer 251 05/13/22 05:28: White Blood Count 9.4, Red Blood Count 3.44, Hemoglobin 10.0, Hematocrit 30, Mean Corpuscular Volume 87, Mean Corpuscular Hemoglobin 29, Mean Corpuscular Hemoglobin Concent 33, Red Cell Distribution Width 13.3, Platelet Count 309, Mean Platelet Volume 10.5, Immature Granulocyte % (Auto) 0, Neutrophils (%) (Auto) 58, Lymphocytes (%) (Auto) 30, Monocytes (%) (Auto) 9, Eosinophils (%) (Auto) 2, Basophils (%) (Auto) 1, Neutrophils # (Auto) 5.4, Lymphocytes # (Auto) 2.8, Monocytes # (Auto) 0.9, Eosinophils # (Auto) 0.2, Basophils # (Auto) 0.1, Immature Granulocyte # (Auto) 0.0, Sodium Level 136, Potassium Level 4.4, Chloride Level 106, Carbon Dioxide Level 19, Anion Gap 11, Blood Urea Nitrogen 26, Creatinine 1.59, Estimat Glomerular Filtration Rate 46, BUN/Creatinine Ratio 16, Glucose Level 250, Calcium Level 8.7, Corrected Calcium 9.4, Total Bilirubin 0.3, Aspartate Amino Transf (AST/SGOT) 20, Alanine Aminotransferase (ALT/SGPT) 22, Alkaline Phosphatase 146, Total Protein 6.4, Albumin 3.1 05/13/22 10:17: Glucometer 165 05/13/22 11:42: Glucometer 145 05/13/22 16:16: Glucometer 83 05/13/22 20:43: Glucometer 85 05/14/22 05:20: White Blood Count 9.5, Red Blood Count 3.19, Hemoglobin 9.4, Hematocrit 29, Mean Corpuscular Volume 90, Mean Corpuscular Hemoglobin 30, Mean Corpuscular Hemoglobin Concent 33, Red Cell Distribution Width 13.3, Platelet Count 326, Mean Platelet Volume 10.6, Immature Granulocyte % (Auto) 0, Neutrophils (%) (Auto) 54, Lymphocytes (%) (Auto) 34, Monocytes (%) (Auto) 9, Eosinophils (%) (Auto) 3, Basophils (%) (Auto) 1, Neutrophils # (Auto) 5.1, Lymphocytes # (Auto) 3.2, Monocytes # (Auto) 0.8, Eosinophils # (Auto) 0.3, Basophils # (Auto) 0.1, Immature Granulocyte # (Auto) 0.0, Sodium Level 138, Potassium Level 3.9, Chloride Level 108, Carbon Dioxide Level 21, Anion Gap 9, Blood Urea Nitrogen 21, Creatinine 1.20, Estimat Glomerular Filtration Rate 65, BUN/Creatinine Ratio 18, Glucose Level 73, Calcium Level 8.7, Corrected Calcium 9.5, Total Bilirubin 0.3, Aspartate Amino Transf (AST/SGOT) 22, Alanine Aminotransferase (ALT/SGPT) 19, Alkaline Phosphatase 136, Total Protein 6.3, Albumin 3.0 05/14/22 05:25: Glucometer 79 05/14/22 11:24: Glucometer 144 05/14/22 15:34: Glucometer 218 05/14/22 19:54: Glucometer 243 05/15/22 05:47: White Blood Count 10.0, Red Blood Count 3.68, Hemoglobin 10.6, Hematocrit 32, Mean Corpuscular Volume 88, Mean Corpuscular Hemoglobin 29, Mean Corpuscular Hemoglobin Concent 33, Red Cell Distribution Width 13.2, Platelet Count 400, Mean Platelet Volume 10.3, Immature Granulocyte % (Auto) 1, Neutrophils (%) (Auto) 68, Lymphocytes (%) (Auto) 23, Monocytes (%) (Auto) 6, Eosinophils (%) (Auto) 2, Basophils (%) (Auto) 0, Neutrophils # (Auto) 6.8, Lymphocytes # (Auto) 2.3, Monocytes # (Auto) 0.6, Eosinophils # (Auto) 0.2, Basophils # (Auto) 0.0, Immature Granulocyte # (Auto) 0.1, Sodium Level 133, Potassium Level 4.7, Chloride Level 101, Carbon Dioxide Level 21, Anion Gap 11, Blood Urea Nitrogen 20, Creatinine 1.43, Estimat Glomerular Filtration Rate 53, BUN/Creatinine Ratio 14, Glucose Level 242, Calcium Level 9.3, Corrected Calcium 9.8, Total Bilirubin 0.4, Aspartate Amino Transf (AST/SGOT) 30, Alanine Aminotransferase (ALT/SGPT) 26, Alkaline Phosphatase 163, Total Protein 7.3, Albumin 3.4 05/15/22 11:25: Glucometer 240 05/15/22 15:14: Glucometer 242 05/15/22 20:11: Glucometer 196 05/16/22 05:13: White Blood Count 8.8, Red Blood Count 3.54, Hemoglobin 10.2, Hematocrit 31, Mean Corpuscular Volume 89, Mean Corpuscular Hemoglobin 29, Mean Corpuscular Hemoglobin Concent 33, Red Cell Distribution Width 13.2, Platelet Count 396, Mean Platelet Volume 11.0, Immature Granulocyte % (Auto) 1, Neutrophils (%) (Auto) 52, Lymphocytes (%) (Auto) 36, Monocytes (%) (Auto) 9, Eosinophils (%) (Auto) 3, Basophils (%) (Auto) 1, Neutrophils # (Auto) 4.6, Lymphocytes # (Auto) 3.2, Monocytes # (Auto) 0.8, Eosinophils # (Auto) 0.2, Basophils # (Auto) 0.1, Immature Granulocyte # (Auto) 0.0, Sodium Level 136, Potassium Level 4.4, Chloride Level 101, Carbon Dioxide Level 21, Anion Gap 14, Blood Urea Nitrogen 26, Creatinine 1.51, Estimat Glomerular Filtration Rate 49, BUN/Creatinine Ratio 17, Glucose Level 184, Calcium Level 9.2, Corrected Calcium 9.8, Total Bilirubin 0.2, Aspartate Amino Transf (AST/SGOT) 29, Alanine Aminotransferase (ALT/SGPT) 31, Alkaline Phosphatase 166, Total Protein 7.1, Albumin 3.3 05/16/22 06:15: Glucometer 176 05/16/22 11:25: Glucometer 272 05/16/22 16:05: Glucometer 224 05/16/22 20:27: Glucometer 223 05/17/22 05:28: White Blood Count 12.2, Red Blood Count 3.77, Hemoglobin 10.8, Hematocrit 33, Mean Corpuscular Volume 88, Mean Corpuscular Hemoglobin 29, Mean Corpuscular Hemoglobin Concent 32, Red Cell Distribution Width 13.2, Platelet Count 439, Mean Platelet Volume 10.1, Immature Granulocyte % (Auto) 0, Neutrophils (%) (Auto) 63, Lymphocytes (%) (Auto) 26, Monocytes (%) (Auto) 8, Eosinophils (%) (Auto) 2, Basophils (%) (Auto) 1, Neutrophils # (Auto) 7.6, Lymphocytes # (Auto) 3.2, Monocytes # (Auto) 1.0, Eosinophils # (Auto) 0.2, Basophils # (Auto) 0.1, Immature Granulocyte # (Auto) 0.1, Sodium Level 135, Potassium Level 5.0, Chloride Level 101, Carbon Dioxide Level 23, Anion Gap 11, Blood Urea Nitrogen 34, Creatinine 1.58, Estimat Glomerular Filtration Rate 47, BUN/Creatinine Ratio 22, Glucose Level 191, Calcium Level 9.2, Corrected Calcium 9.6, Total Bilirubin 0.2, Aspartate Amino Transf (AST/SGOT) 34, Alanine Aminotransferase (ALT/SGPT) 35, Alkaline Phosphatase 150, Total Protein 7.2, Albumin 3.5 05/17/22 05:31: Glucometer 191 05/17/22 11:15: Glucometer 222 05/17/22 15:29: Glucometer 211 05/17/22 20:17: Glucometer 205 05/18/22 06:08: White Blood Count 12.8, Red Blood Count 3.51, Hemoglobin 10.2, Hematocrit 31, Mean Corpuscular Volume 90, Mean Corpuscular Hemoglobin 29, Mean Corpuscular Hemoglobin Concent 33, Red Cell Distribution Width 13.4, Platelet Count 482, Mean Platelet Volume 10.8, Immature Granulocyte % (Auto) 1, Neutrophils (%) (Auto) 63, Lymphocytes (%) (Auto) 27, Monocytes (%) (Auto) 8, Eosinophils (%) (Auto) 2, Basophils (%) (Auto) 0, Neutrophils # (Auto) 8.1, Lymphocytes # (Auto) 3.4, Monocytes # (Auto) 1.1, Eosinophils # (Auto) 0.2, Basophils # (Auto) 0.1, Immature Granulocyte # (Auto) 0.1, Sodium Level 136, Potassium Level 4.7, Chloride Level 99, Carbon Dioxide Level 20, Anion Gap 17, Blood Urea Nitrogen 39, Creatinine 1.82, Estimat Glomerular Filtration Rate 39, BUN/Creatinine Ratio 21, Glucose Level 173, Calcium Level 9.4, Corrected Calcium 9.8, Total Bilirubin 0.3, Aspartate Amino Transf (AST/SGOT) 30, Alanine Aminotransferase (ALT/SGPT) 37, Alkaline Phosphatase 170, Total Protein 7.6, Albumin 3.5 05/18/22 06:28: Glucometer 183 05/18/22 10:43: Glucometer 177 05/18/22 15:26: Glucometer 272 05/18/22 20:34: Glucometer 170 05/19/22 05:07: White Blood Count 8.4, Red Blood Count 3.79, Hemoglobin 10.9, Hematocrit 33, Mean Corpuscular Volume 88, Mean Corpuscular Hemoglobin 29, Mean Corpuscular Hemoglobin Concent 33, Red Cell Distribution Width 13.2, Platelet Count 154, Mean Platelet Volume 11.0, Immature Granulocyte % (Auto) 1, Neutrophils (%) (Auto) 55, Lymphocytes (%) (Auto) 35, Monocytes (%) (Auto) 8, Eosinophils (%) (Auto) 2, Basophils (%) (Auto) 1, Neutrophils # (Auto) 4.6, Lymphocytes # (Auto) 2.9, Monocytes # (Auto) 0.6, Eosinophils # (Auto) 0.2, Basophils # (Auto) 0.1, Immature Granulocyte # (Auto) 0.0, Sodium Level 133, Potassium Level 4.5, Chloride Level 100, Carbon Dioxide Level 20, Anion Gap 13, Blood Urea Nitrogen 37, Creatinine 1.73, Estimat Glomerular Filtration Rate 42, BUN/Creatinine Ratio 21, Glucose Level 168, Glucometer 157, Calcium Level 9.0, Corrected Calcium 9.5, Total Bilirubin 0.3, Aspartate Amino Transf (AST/SGOT) 28, Alanine Aminotransferase (ALT/SGPT) 33, Alkaline Phosphatase 152, Total Protein 7.2, Albumin 3.4 05/19/22 10:32: Glucometer 281 05/19/22 15:19: Glucometer 240 05/19/22 20:02: Glucometer 271 05/20/22 05:40: White Blood Count 16.3, Red Blood Count 3.72, Hemoglobin 10.6, Hematocrit 33, Mean Corpuscular Volume 90, Mean Corpuscular Hemoglobin 29, Mean Corpuscular Hemoglobin Concent 32, Red Cell Distribution Width 13.1, Platelet Count 505, Mean Platelet Volume 10.2, Immature Granulocyte % (Auto) 1, Neutrophils (%) (Auto) 77, Lymphocytes (%) (Auto) 14, Monocytes (%) (Auto) 7, Eosinophils (%) (Auto) 1, Basophils (%) (Auto) 0, Neutrophils # (Auto) 12.6, Lymphocytes # (Auto) 2.3, Monocytes # (Auto) 1.2, Eosinophils # (Auto) 0.1, Basophils # (Auto) 0.1, Immature Granulocyte # (Auto) 0.1, Neutrophils % (Manual) 79, Lymphocytes % (Manual) 12, Monocytes % (Manual) 8, Eosinophils % (Manual) 1, Blood Morphology Comment NORMAL, Sodium Level 134, Potassium Level 5.1, Chloride Level 99, Carbon Dioxide Level 21, Anion Gap 14, Blood Urea Nitrogen 40, Creatinine 1.52, Estimat Glomerular Filtration Rate 49, BUN/Creatinine Ratio 26, Glucose Level 221, Calcium Level 9.5, Corrected Calcium 9.8, Total Bilirubin 0.3, Aspartate Amino Transf (AST/SGOT) 24, Alanine Aminotransferase (ALT/SGPT) 31, Alkaline Phosphatase 155, Total Protein 7.7, Albumin 3.6 05/20/22 06:04: Glucometer 220 05/20/22 10:21: Glucometer 186 05/20/22 15:09: Glucometer 170 05/20/22 16:13: Urine Color YELLOW, Urine Clarity CLEAR, Urine pH 5.0, Urine Specific [place] 1.025, Urine Protein 2+, Urine Glucose (UA) NEGATIVE, Urine Ketones NEGATIVE, Urine Nitrite NEGATIVE, Urine Bilirubin NEGATIVE, Urine Urobilinogen 0.2, Urine Leukocyte Esterase NEGATIVE, Urine RBC (Auto) NEGATIVE, Urine RBC NONE, Urine WBC NONE, Urine Squamous Epithelial Cells RARE, Urine Crystals PRESENT, Urine Amorphous Sediment RARE RIMA URATES, Urine Bacteria NEGATIVE, Urine Casts PRESENT, Urine Granular Casts RARE, Urine Mucus NEGATIVE, Urine Culture Indicated NO 05/20/22 20:04: Glucometer 223 05/21/22 05:31: Glucometer 145 05/21/22 06:08: White Blood Count 20.1, Red Blood Count 3.73, Hemoglobin 10.8, Hematocrit 34, Mean Corpuscular Volume 90, Mean Corpuscular Hemoglobin 29, Mean Corpuscular Hemoglobin Concent 32, Red Cell Distribution Width 13.3, Platelet Count 515, Mean Platelet Volume 9.9, Immature Granulocyte % (Auto) 2, Neutrophils (%) (Auto) 74, Lymphocytes (%) (Auto) 14, Monocytes (%) (Auto) 9, Eosinophils (%) (Auto) 1, Basophils (%) (Auto) 0, Neutrophils # (Auto) 15.0, Lymphocytes # (Auto) 2.9, Monocytes # (Auto) 1.7, Eosinophils # (Auto) 0.1, Basophils # (Auto) 0.1, Immature Granulocyte # (Auto) 0.4, Sodium Level 133, Potassium Level 4.9, Chloride Level 99, Carbon Dioxide Level 21, Anion Gap 13, Blood Urea Nitrogen 38, Creatinine 1.73, Estimat Glomerular Filtration Rate 42, BUN/Creatinine Ratio 22, Glucose Level 126, Calcium Level 9.6, Corrected Calcium 9.8, Total Bilirubin 0.4, Aspartate Amino Transf (AST/SGOT) 22, Alanine Aminotransferase (ALT/SGPT) 27, Alkaline Phosphatase 157, Total Protein 8.1, Albumin 3.7 05/21/22 10:45: Glucometer 181 05/21/22 15:26: Glucometer 213 05/21/22 20:24: Glucometer 150 05/22/22 06:05: White Blood Count 24.9, Red Blood Count 3.30, Hemoglobin 9.7, Hematocrit 31, Mean Corpuscular Volume 93, Mean Corpuscular Hemoglobin 29, Mean Corpuscular Hemoglobin Concent 32, Red Cell Distribution Width 13.4, Platelet Count 484, Mean Platelet Volume 10.6, Immature Granulocyte % (Auto) 1, Neutrophils (%) (Auto) 79, Lymphocytes (%) (Auto) 11, Monocytes (%) (Auto) 9, Eosinophils (%) (Auto) 0, Basophils (%) (Auto) 0, Neutrophils # (Auto) 19.6, Lymphocytes # (Auto) 2.7, Monocytes # (Auto) 2.2, Eosinophils # (Auto) 0.1, Basophils # (Auto) 0.1, Immature Granulocyte # (Auto) 0.2, Neutrophils % (Manual) 82, Lymphocytes % (Manual) 12, Monocytes % (Manual) 6, Blood Morphology Comment NORMAL, Sodium Level 131, Potassium Level 4.9, Chloride Level 99, Carbon Dioxide Level 19, Anion Gap 13, Blood Urea Nitrogen 49, Creatinine 2.63, Estimat Glomerular Filtration Rate 25, BUN/Creatinine Ratio 19, Glucose Level 134, Calcium Level 9.2, Corrected Calcium 9.8, Total Bilirubin 0.8, Aspartate Amino Transf (AST/SGOT) 30, Alanine Aminotransferase (ALT/SGPT) 30, Alkaline Phosphatase 152, Total Protein 7.4, Albumin 3.3 05/22/22 08:19: Glucometer 148 05/22/22 11:31: Glucometer 219 05/22/22 15:12: Glucometer 209 05/22/22 20:31: Glucometer 204 05/23/22 05:20: White Blood Count 23.5, Red Blood Count 3.24, Hemoglobin 9.3, Hematocrit 29, Mean Corpuscular Volume 89, Mean Corpuscular Hemoglobin 29, Mean Corpuscular Hemoglobin Concent 32, Red Cell Distribution Width 13.2, Platelet Count 528, M corrine Platelet Volume 10.2, Immature Granulocyte % (Auto) 1, Neutrophils (%) (Auto) 79, Lymphocytes (%) (Auto) 12, Monocytes (%) (Auto) 7, Eosinophils (%) (Auto) 1, Basophils (%) (Auto) 0, Neutrophils # (Auto) 18.6, Lymphocytes # (Auto) 2.8, Monocytes # (Auto) 1.6, Eosinophils # (Auto) 0.2, Basophils # (Auto) 0.1, Immature Granulocyte # (Auto) 0.2, Sodium Level 134, Potassium Level 4.3, Chloride Level 99, Carbon Dioxide Level 19, Anion Gap 16, Blood Urea Nitrogen 61, Creatinine 3.52, Estimat Glomerular Filtration Rate 18, BUN/Creatinine Ratio 17, Glucose Level 110, Calcium Level 9.3, Corrected Calcium 9.9, Total Bilirubin 0.7, Aspartate Amino Transf (AST/SGOT) 34, Alanine Aminotransferase (ALT/SGPT) 37, Alkaline Phosphatase 195, Total Protein 7.6, Albumin 3.3 05/23/22 11:08: Glucometer 149 05/23/22 15:17: Glucometer 140 Discharge Home Medications: Active Scripts Active Reported Welchol (Colesevelam HCl) 625 Mg Tablet 625 Mg PO DAILY PRN Aspirin EC (Aspirin) 81 Mg Tablet.dr 81 Mg PO DAILY Proair Hfa (Albuterol Sulfate) 1 Puff Puff 2 Puff IH Q4H PRN 1 PUFF = 90 MCG Novolog Flexpen (Insulin Aspart) 100 Unit/Ml (3 Ml) Solution 10 Units SQ AC Lisinopril 2.5 Mg Tablet 2.5 Mg PO DAILY Omeprazole 20 Mg Capsule.dr 20 Mg PO HS PRN Levothyroxine Sodium 125 Mcg Tablet 125 Mcg PO DAILY Tresiba Flextouch U-200 (Insulin Degludec) 200 Unit/Ml (3 Ml) Insuln.pen 70 Units SC DAILY Praluent Pen (Alirocumab) 75 Mg/Ml Pen.injctr 75 Mg INJ EVERY 2 WEEKS Myrbetriq (Mirabegron) 50 Mg Tab.er.24h 50 Mg PO DAILY Hydrocodone-Acetamin 5-325 mg (Hydrocodone/Acetaminophen) 5 Mg-325 Mg Tablet 1 Ea PO Q8H PRN Metoclopramide HCl 10 Mg Tablet 10 Mg PO DAILY Welchol (Colesevelam HCl) 625 Mg Tablet 625 Mg PO DAILY Venlafaxine HCl 75 Mg Tab 75 Mg PO DAILY Instructions to patient/family Please see electronic discharge instructions given to patient. Diagnosis/Problems Diagnosis/Problems (1) Compression fracture of T12 vertebra Status: Acute Qualifiers: Qualified Codes: S22.080A - Wedge compression fracture of T11-T12 vertebra, initial encounter for closed fracture (2) Urinary retention (3) Gaffney catheter in place (4) Dementia (5) Delirium (6) Frequent falls Status: Acute (7) Lower extremity weakness Status: Acute Qualifiers: Qualified Codes: R29.898 - Other symptoms and signs involving the musculoskeletal system (8) Cellulitis of right hand Status: Acute (9) Hypertension Status: Chronic Qualifiers: Qualified Codes: I10 - Essential (primary) hypertension JOSE VARGAS DO May 23, 2022 09:14
--- NOTE | 2022-05-23 09:25 | Physical Therapy Daily Note ---
PT Daily Note-Current Subjective Patient yelling. PT entered room and patient's gown was wet and he was positioned down in bed. Mental Status Patient Orientation: Confused Attachments: Gaffney Catheter, IV Transfers SCALE: Activities may be completed with or without assistive devices. 1-Mjdevguyjb-pnislew completes the activity by him/herself with no assistance from a helper. 5-Set-up or Clean-up Assistance-helper sets up or cleans up; patient completes activity. [place] assists only prior to or following the activity. 4-Supervision or Touching Assistance-helper provides verbal cues and/or touching/steadying and/or contact guard assistance as patient completes activity. Assistance may be provided throughout the activity or intermittently. 3-Partial/Moderate Assistance-helper does LESS THAN HALF the effort. [place] lifts, holds or supports trunk or limbs, but provides less than half the effort. 2-Substantial/Maximal Assistance-helper does MORE THAN HALF the effort. [place] lifts or holds trunk or limbs and provides more than half the effort. 6-Rbrkidwld-ujawgq does ALL the effort. Patient does none of the effort to complete the activity. Or, the assistance of 2 or more helpers is required for the patient to complete the activity. If activity was not attempted, code reason: 7-Patient Refused. 9-Not Applicable-not attempted and the patient did not perform the activity before the current illness, exacerbation or injury. 10-Not Attempted due to Environmental Limitations-(lack of equipment, weather restraints, etc.). 88-Not Attempted due to Medical Conditions or Safety Concerns. Roll Left & Right (QC): 1 (x 2) patient repositioned up in bed and gown changed and patient cleansed. Weight Bearing Right Lower Extremity: Right Full Weight Bearing Left Lower Extremity: Left Full Weight Bearing generation technologist notified of PT concerns. Breakfast was on the table. Patient currently too lethargic to consume food safely. RN concurs. PT Hides And Skins Colorer Goals Residential Goals PT Hides And Skins Colorer Goals Time Frame: Jun 02, 2022 Roll Left & Right (QC): 4 Sit to Lying (QC): 4 Lying-Sitting on Side/Bed(QC): 4 Sit to Stand (QC): 4 Chair/Wrg-py-Illel Xfer(QC): 4 Toilet Transfer (QC): 4 Does the Patient Walk: Yes Walk 10 feet (QC): 4 Walk 50ft with 2 Turns (QC): 4 Walk 150 ft (QC): 4 PT Plan Treatment/Plan Treatment Plan: Continue Plan of Care Treatment Plan: Bed Mobility, Education, Functional Activity [place], Functional Strength, Group Therapy, Gait, Safety, Therapeutic Exercise, Transfers Treatment Duration: Jun 10, 2022 Frequency: 6 times per week Estimated Hrs Per Day: .25 hour per day Patient and/or Family Agrees t: Yes Time/GCodes Time In: 828 Time Out: 838 Total Billed Treatment Time: 10 Total Billed Treatment 1 visit FA 10 min AUGUSTUS HOOPER PT May 23, 2022 09:25
[2022-05-23 11:09] VITALS: BP 122/75
--- NOTE | 2022-05-23 14:09 | Occ Therapy Progress Note ---
Therapy Progress Note OT tx attempted, at bedside and pt sleeping. Pt's indicates pt is planning on transferring to another hospital for higher level of care, requesting OT To let pt sleep. OT will attempt tx again tomorrow if pt still admitted. 1, visit GIO CLAYTON OT May 23, 2022 14:09
[2022-05-23 16:17] VITALS: BP 115/71
[2022-05-23 17:09] VITALS: BP 115/71
[2022-05-23] MEDS ORDERED: PIPERACILLIN SODIUM/TAZOBACTAM 4.5 GM in NS (IVPB) 100 ML IV SCH (19:00)
== END 2022-05-23 17:00 | disposition short-term general hospital (02) | DRG 551 ==
LOC: EDUNIT# 08:27 → ER 08:28 → 4TH 14:34
PROVIDERS: ADMIT Internal Medicine; ATTEND Internal Medicine
DX: S22.080A Wedge compression fracture of T11-T12 vertebra, initial encounter for closed fracture (principal); I63.513 Cerebral infarction due to unspecified occlusion or stenosis of bilateral middle cerebral arteries; J18.9 Pneumonia, unspecified organism; L03.113 Cellulitis of right upper limb; N17.9 Acute kidney failure, unspecified; G81.94 Hemiplegia, unspecified affecting left nondominant side; W18.30XA Fall on same level, unspecified, initial encounter; I12.9 Hypertensive chronic kidney disease with stage 1 through stage 4 chronic kidney disease, or unspecified chronic kidney disease; E83.42 Hypomagnesemia; R29.898 Other symptoms and signs involving the musculoskeletal system; J44.9 Chronic obstructive pulmonary disease, unspecified; E78.00 Pure hypercholesterolemia, unspecified; G20 Parkinson's disease; F02.80 Dementia in other diseases classified elsewhere, unspecified severity, without behavioral disturbance, psychotic disturbance, mood disturbance, and anxiety; K21.9 Gastro-esophageal reflux disease without esophagitis; M19.90 Unspecified osteoarthritis, unspecified site; G89.29 Other chronic pain; Z20.822 Contact with and (suspected) exposure to COVID-19; M54.9 Dorsalgia, unspecified; F41.9 Anxiety disorder, unspecified; F32.A Depression, unspecified; R33.9 Retention of urine, unspecified; E03.9 Hypothyroidism, unspecified; E11.22 Type 2 diabetes mellitus with diabetic chronic kidney disease; I77.9 Disorder of arteries and arterioles, unspecified; D72.829 Elevated white blood cell count, unspecified; E11.42 Type 2 diabetes mellitus with diabetic polyneuropathy; N40.0 Benign prostatic hyperplasia without lower urinary tract symptoms; N18.31 Chronic kidney disease, stage 3a; R47.1 Dysarthria and anarthria; R29.810 Facial weakness; Y95 Nosocomial condition; Z79.82 Long term (current) use of aspirin; Z79.4 Long term (current) use of insulin; Z79.899 Other long term (current) drug therapy
CPT/HCPCS: 36415; 70450; 70544; 70551; 71045; 72148; 73130; 80053; 81000; 82947; 83735; 83880; 84439; 84443; 84484; 85007; 85025; 85027; 86141; 87088; 87636; 93005; 93041; 93306; 93880; 94760; 96365; 96367; 96372; 96374

== ENCOUNTER → 2022-06-19 | Outpatient (CLI) | payer MEDICARE ==
[~2022-06-19] MED LIST changes: +ALIR75PE5 INJ; +ASPI-1238 PO; +INSU100I14 SQ; +INSU200I4 SC; +MIRA50TA PO; +MTC10T PO; +RT-ALBUINH IH
[2022-06-19 10:11] LABS: BASOPHILS # (AUTO) 0.1 10^3/uL (0.0-0.1); BASOPHILS % (AUTO) 1 % (0-10); EOSINOPHILS # (AUTO) 0.3 10^3/uL (0.0-0.3); EOSINOPHILS % (AUTO) 2 % (0-10); HEMATOCRIT 33 % (40-54); HEMOGLOBIN 10.6 g/dL (13.3-17.7); LYMPHOCYTES % (AUTO) 20 % (12-44); MEAN CORPUSCULAR HEMOGLOBIN 29 pg (25-34); MEAN CORPUSCULAR HGB CONC 33 g/dL (32-36); MEAN CORPUSCULAR VOLUME 88 fL (80-99); MEAN PLATELET VOLUME 9.5 fL (9.0-12.2); MONOCYTES # (AUTO) 0.9 10^3/uL (0.0-1.0); MONOCYTES % (AUTO) 6 % (0-12); NEUTROPHILS # (AUTO) 10.5 10^3/uL (1.8-7.8); NEUTROPHILS % (AUTO) 71 % (42-75); PLATELET COUNT 480 10^3/uL (130-400); WHITE BLOOD COUNT 14.8 10^3/uL (4.3-11.0)
[2022-06-19 10:25] LABS: BAND NEUTROPHILS 0 %; BASOPHILS % (MANUAL) 1 %; EOSINOPHILS % (MANUAL) 1 %; LYMPHOCYTES % (MANUAL) 23 %; MONOCYTES % (MANUAL) 8 %; NEUTROPHILS % (MANUAL) 67 %; RBC MORPH NORMAL
[2022-06-19 10:27] LABS: CREATININE SERUM 1.58 MG/DL (0.60-1.30); POTASSIUM 5.8 MMOL/L (3.6-5.0)
[2022-06-19 10:42] LABS: ERYTHROCYTE SEDIMENTATION RATE 22 MM/HR (0-30)
== END ==
LOC: WOUNDCARE 08:08
PROVIDERS: ATTEND Family Medicine
DX: S60.521A Blister (nonthermal) of right hand, initial encounter (principal); S60.522A Blister (nonthermal) of left hand, initial encounter; I70.235 Atherosclerosis of native arteries of right leg with ulceration of other part of foot; L97.519 Non-pressure chronic ulcer of other part of right foot with unspecified severity; L03.116 Cellulitis of left lower limb; N18.4 Chronic kidney disease, stage 4 (severe); E11.621 Type 2 diabetes mellitus with foot ulcer; E11.622 Type 2 diabetes mellitus with other skin ulcer; D63.1 Anemia in chronic kidney disease; R29.6 Repeated falls
CPT/HCPCS: 80048; 82306; 82607; 82746; 83036; 84134; 85007; 85027; 85652; 86141; G0463; 36415; 99214

== ENCOUNTER → 2022-06-22 | Outpatient (CLI) | payer MEDICARE ==
[~2022-06-22] MED LIST changes: +DIAZEPAM 5 MG (VALIUM) TABLET PO ONE
--- NOTE | 2022-06-22 14:27 | Diagnostic Imaging Report ---
Exam: MRI right thigh without contrast. Date: June 22, 2022. Indication: 71-year-old male, ulcer of the second toe of the right foot. Right foot pain. Comparison: None. Technique: Multiple noncontrast MRI sequences of the right foot were obtained. Findings: There are significant motion limitations of the exam. There does appear to be marrow edema in the second proximal phalanx perhaps best demonstrated on sagittal STIR sequence image 13. There is no clearly identified T1 marrow signal loss or bone destruction at this location. There is a very poor evaluation of the second middle and distal phalanges on the fluid sensitive sequences as well as sagittal images relating to prominent artifact present. There is also no obvious T1 marrow signal loss or bone destruction of these phalanges. There is no otherwise identified marrow signal abnormality. The Lisfranc ligament proper appears grossly intact. There is no clear evidence of tenosynovitis. There is diffuse fatty atrophy of the imaged foot musculature most likely reflecting polyneuropathy. Edema in the musculature most likely relates to the polyneuropathy. Sensitivity for detection of abscess is reduced on noncontrast imaging as well as relating to the prominent motion artifact present. No obvious fluid collection is identified. There is no large joint effusion. Impression: 1. Significantly motion limited exam. 2. There does appear to be edema-like signal in the second proximal phalanx without overt T1 marrow signal loss or bone destruction. This is nonspecific. Particularly if there is an adjacent soft tissue ulcer, this does raise concern for possibility of early osteomyelitis. Bone contusion or other process could also produce this appearance. 3. Diffuse fatty atrophy of the imaged foot musculature most consistent with polyneuropathy. Dictated by: Dictated on workstation # [id number]
== END ==
LOC: RAD 08:45
PROVIDERS: ATTEND Family Medicine
DX: S60.521A Blister (nonthermal) of right hand, initial encounter (principal); S60.522A Blister (nonthermal) of left hand, initial encounter; I70.235 Atherosclerosis of native arteries of right leg with ulceration of other part of foot; L03.116 Cellulitis of left lower limb; E11.22 Type 2 diabetes mellitus with diabetic chronic kidney disease; N18.4 Chronic kidney disease, stage 4 (severe); E11.621 Type 2 diabetes mellitus with foot ulcer; E11.622 Type 2 diabetes mellitus with other skin ulcer; L97.519 Non-pressure chronic ulcer of other part of right foot with unspecified severity; D63.1 Anemia in chronic kidney disease; R26.0 Ataxic gait; R29.6 Repeated falls

== ENCOUNTER → 2022-06-28 | Outpatient (CLI) | payer MEDICARE ==
[~2022-06-28] MED LIST changes: -DIAZEPAM 5 MG (VALIUM) TABLET PO ONE
== END ==
LOC: WOUNDCARE 14:03
PROVIDERS: ATTEND Family Medicine
DX: S60.521A Blister (nonthermal) of right hand, initial encounter (principal); S60.522A Blister (nonthermal) of left hand, initial encounter; I70.235 Atherosclerosis of native arteries of right leg with ulceration of other part of foot; L03.116 Cellulitis of left lower limb; E11.621 Type 2 diabetes mellitus with foot ulcer; E11.622 Type 2 diabetes mellitus with other skin ulcer; L97.519 Non-pressure chronic ulcer of other part of right foot with unspecified severity; E11.22 Type 2 diabetes mellitus with diabetic chronic kidney disease; N18.30 Chronic kidney disease, stage 3 unspecified; D63.1 Anemia in chronic kidney disease; E55.9 Vitamin D deficiency, unspecified; E44.0 Moderate protein-calorie malnutrition; E11.65 Type 2 diabetes mellitus with hyperglycemia; M86.171 Other acute osteomyelitis, right ankle and foot; R26.0 Ataxic gait; R29.6 Repeated falls
CPT/HCPCS: 99212

== ENCOUNTER 2022-07-03 10:00 | Inpatient (IN) | payer MEDICARE ==
[2022-07-03] VITALS (7 sets, daily range): BP systolic 113–167; BP diastolic 58–89
[~2022-07-03] VITALS: Ht 175.3 cm; Wt 79.3 kg
[2022-07-03 08:24] LABS: HEMATOCRIT 29 % (40-54); HEMOGLOBIN 9.6 g/dL (13.3-17.7); MEAN CORPUSCULAR HEMOGLOBIN 29 pg (25-34); MEAN CORPUSCULAR HGB CONC 33 g/dL (32-36); MEAN CORPUSCULAR VOLUME 87 fL (80-99); MEAN PLATELET VOLUME 10.2 fL (9.0-12.2); PLATELET COUNT 534 10^3/uL (130-400); WHITE BLOOD COUNT 24.7 10^3/uL (4.3-11.0)
[2022-07-03 08:37] LABS: INR 1.2 (0.8-1.4); PROTHROMBIN TIME PATIENT 15.8 SEC (12.2-14.7)
[2022-07-03 08:44] LABS: ALBUMIN 3.5 GM/DL (3.2-4.5); BILIRUBIN,TOTAL 0.5 MG/DL (0.1-1.0); CALCIUM 10.2 MG/DL (8.5-10.1); CREATININE SERUM 2.12 MG/DL (0.60-1.30); POTASSIUM 5.1 MMOL/L (3.6-5.0); TOTAL PROTEIN 9.4 GM/DL (6.4-8.2)
--- NOTE | 2022-07-03 08:50 | Diagnostic Imaging Report ---
Indication: Pre-peripheral angiography. Time of Exam: 8:24 AM Correlation is made with prior chest from 05/21/2022. Findings: The heart size is normal. The pulmonary vascularity is unremarkable. The lungs are clear. No infiltrate, effusion or pneumothorax is detected. Impression: No acute cardiopulmonary process is detected. Dictated by: Dictated on workstation # [id number]
[2022-07-03] MEDS: NS IV 1000 ML 1,000 ML IV SCH ×4 (09:17→20:18)
--- NOTE | 2022-07-03 09:41 | Cardiac Procedure Note-CS/ASA ---
Pre-Procedure Note Pre-Op Procedure Note Date of Available H&P: Jun 29, 2022 Date H&P Reviewed: Jul 03, 2022 Time H&P Reviewed: 09:40 History & Physical: H&P Reviewed, Patient Examed, No changes noted Pre-Operative Diagnosis: Critical limb ischemia Conscious Sedation Pre-Proced Time 09:40 ASA Score 3 For ASA 3 and 4: Consider anesthesia and medical clearance. Also, for patients with a history of failed moderate sedation consider anesthesia. Airway Lungs Heart ASA score ASA 1: a normal healthy patient ASA 2: a patient with a mild systemic disease (mid diabetes, controlled hypertension, obesity x ASA 3: a patient with a severe systemic disease that limits activity (angina, COPD, prior Myocardial infarction) ASA 4: a patient with an incapacitating disease that is a constant threat to life (CHF, renal failure) ASA 5: a moribund patient not expected to survive 24 hrs. (ruptured aneurysm) ASA 6: a declared brain- patient whose organs are being harvested. For emergent operations, add the letter E after the classification Mallampati Classification Grade 3 Sedation Plan Analgesia, Amnesia, Plan communicated to team members, Discussed options with patient/fam, Discussed risks with patient/fam The patient is an appropriate candidate to undergo the planned procedure, sedation, and anesthesia. The patient immediately re-assessed prior to indication. BRITTANY CARRERO MD Jul 03, 2022 09:41
[~2022-07-03 10:00] MED LIST changes: +HEParin (CATH LAB) 2,000 ML IV ONE; +LIDOCAINE 1% INJ 20 ML VIAL ONE; +MIDAZOLAM 5 MG/5 ML (VERSED) VIAL ONE; +NS IV 1000 ML 1,000 ML ONE; +REGADENOSON 0.4 MG/5 ML SYR (LEXISCAN) IV ONE; +fentaNYL INJ 100 MCG/2 ML AMP ONE
[2022-07-03] MEDS ORDERED: CLOP75TA28 PO (10:02)
[2022-07-03] MEDS ORDERED: CEPH500C PO (10:02)
[2022-07-03] MEDS ORDERED: ATOR80TA76 PO (10:02)
[2022-07-03] MEDS ORDERED: CLIN150C20 PO (10:02)
[2022-07-03] MEDS ORDERED: CHOL500049 PO (10:02)
[2022-07-03] MEDS ORDERED: NS IV 1000 ML 1,000 ML ONE (10:11)
[2022-07-03] MEDS ORDERED: GLUC1AUT SQ (10:14)
[2022-07-03] MEDS ORDERED: HEParin 1000 UNIT/ML (10ML VIAL) FOR BOLUS ONE (10:32)
[2022-07-03] MEDS ORDERED: NITRO DRIP 25000 MCG/D5W 250 ML IV ONE (10:52)
[2022-07-03] MEDS ORDERED: ASPIRIN 325 MG (5 GR) TABLET ONE (11:18)
[2022-07-03] MEDS ORDERED: CLOPIDOGREL 300 MG (PLAVIX) TABLET PO ONE (11:18)
[2022-07-03] MEDS ORDERED: RT-ALBUTEROL SULF 2.5 MG/3 ML PRE-MIX VIAL IH PRN (11:30)
[2022-07-03] MEDS ORDERED: PATIENT MAY USE OWN MEDS, ALL PO SCH (11:30)
[2022-07-03] MEDS ORDERED: NON-FORMULARY MEDICATION 1 EA EA (Alirocumab (Praluent Pen) 75 MG) INJ SCH (11:30)
--- NOTE | 2022-07-03 11:32 | Peripheral Report ---
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 Abnormal KRYSTINA. After explaining the procedure to the patient, all pros and cons were explained, all questions were answered. The patient signed the consent and then he was placed on the cardiac catheterization laboratory. The patient was placed on the cardiac catheterization laboratory. Groin was prepped SL fashion local anesthesia was used. Sheath placed in the left femoral artery, using 4 mL of contrast runoff to the left leg was done then I used a rim and did runoff to the right leg from the right common iliac artery then advanced a Storq wire to the right SFA and advanced 6 [place] sheath and did runoff to the right leg through the mid SFA then I advanced Storq wire again and put the straight catheter down to the tibioperoneal trunk and did DSA imaging to the trifurcation and then DSA imaging at the level of the foot. Command [address] was advanced through the posterior tibial artery that has subtotal occlusion, balloon angioplasty using Darby 3 x 40, 2 inflation with excellent results. The tibioperoneal trunk I used Darby 5 x 60 with 2 inflation with excellent results then The SFA I used Darby 6 x 100 with single inflation with excellent results. Sheath was retracted and exchanged into a short 6 [place] sheath and then closure device deployed. Patient received a total 5000 units of heparin FINDINGS: Left lower extremity, runoff done through the sheath, the common femoral artery is normal, mild disease in the right SFA down to the trifurcation, nonobstructive disease Left lower extremity: Right common femoral and common iliac arteries are normal with no significant obstructive disease Right SFA is moderate in size, 2 area at the distal right SFA with moderate stenosis, balloon angioplasty was done with Darby 6 x 100 with excellent r esults Right tibioperoneal trunk has severe stenosis, balloon angioplasty with Darby 5 x 60 with excellent results Right posterior tibial artery has subtotal occlusion at the ostium, balloon angioplasty with Darby 3 x 40 with excellent results. Posterior tibial artery has moderate disease distally Right peroneal artery has severe stenosis distally at the level of the ankle. Right anterior tibial artery is totally occluded and the area is receiving collaterals, it did not reconstruct. CONCLUSIONS: 1. Successful balloon angioplasty to the right posterior tibial artery, tibioperoneal trunk and right SFA with excellent results 2. 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 Otherwise mild disease diffusely DISCUSSION AND RECOMMENDATIONS: Continue with aspirin and Plavix. Continue to maximize medical therapy Anesthesia Type: Conscious Sedation Estimated blood loss (mL): 30 ml Contrast Amount: 61 ml Total Radiation Dose: 287 mGy Post-Procedure Diagnosis Post-operative diagnosis: Critical limb ischemia Peripheral arterial disease Hypertension Hyperlipidemia. Diabetes mellitus. BRITTANY CARRERO MD Jul 03, 2022 11:32
[2022-07-03] MEDS ORDERED: RX-CLINDAMYCIN 150 MG (CLEOCIN) CAP PPK#4 PO SCH (13:00)
[2022-07-03] MEDS: CEPHALEXIN 250 MG (KEFLEX) CAP PO SCH ×2 (13:00→20:19)
[2022-07-03] MEDS ORDERED: NON-FORMULARY MEDICATION 1 EA EA (Cephalexin 500 MG) PO SCH (13:00)
[2022-07-03] MEDS: METOCLOPRAMIDE 10 MG (REGLAN) TAB PO SCH ×3 (13:00→20:22)
[2022-07-03] MEDS ORDERED: NON-FORMULARY MEDICATION 1 EA EA (Insulin Aspart (Novolog Flexpen) 10 UNITS) SQ SCH (14:00)
[2022-07-03] MEDS ORDERED: LIDOCAINE UROJET 2% GEL 10 ML PKG ONE (16:52)
[2022-07-03] MEDS: inSUlin ASPART (NovoLOG) 1 UNIT/0.01 ML (CHARGE PER UNIT) SC SCH ×2 (18:36→18:37)
[2022-07-03] MEDS: CLINDAMYCIN 150 MG (CLEOCIN) CAP PO SCH ×2 (18:42→23:46)
[2022-07-04] VITALS (13 sets, daily range): BP systolic 126–186; BP diastolic 63–92
[2022-07-04] MEDS: NS IV 1000 ML 1,000 ML IV SCH ×2 (02:24→16:31)
--- NOTE | 2022-07-04 05:53 | Discharge Inst-Post CATH ---
Discharge Inst-CATH/EP Problems Reviewed?: Yes Post Cardiac Cath/EP D/C Inst Follow Up/Plan Appointment with Dr Fu in 1-2 weeks <b>CARDIAC CATH/EP PROCEDURE DISCHARGE INSTRUCTIONS</b> ACTIVITY * Go Home directly and rest. * Limit activity of the leg (or wrist if it was used) for 7 days including aerob ics, swimming, jogging, bicycling, etc. * Restrict stair-climbing for 7 days if possible, if not, climb up with your non-cath leg, then bring together on the same step. * Avoid lifting, pushing, pulling or excessive movement of the affected extremity for 7 days. * Customary sexual activity may be resumed after 2 days-use caution not to use a position that strains or causes pain to the affected extremity. * No driving for 24 hours. * NO SMOKING. * Avoid straining for bowel movements for 7 days. * Gentle walking on level ground is allowed. * Returning to work will depend on the type of procedure and the results. Your doctor will discuss this with you. CALL YOUR DOCTOR FOR ANY OF THE FOLLOWING: *If bleeding from the puncture site occurs- Apply gentle pressure to site with clean cloth and call your doctor or EMS. * If a knot or lump forms under the skin, increases in size, or causes pain. * If bruising appears to be worsening or moving further down your leg instead of disappearing. * Temperature above 101 F. CARE OF YOUR GROIN INCISION; * Bruising or purple discoloration of the skin near the puncture site is common. * You may shower only, no bathtub bathing for 5 days. Be careful to avoid slipping as your leg may feel stiff. * If a closure device was used on your femoral artery, please see the attached guide regarding care of the device and your leg. * Leave dressing on FOR 24 hours. CARE OF YOUR WRIST INCISION; * Bruising or purple discoloration of the skin near the puncture site is common. * You may shower. * DO NOT submerge wrist. * Leave dressing on FOR 24 hours. BRITTANY FU MD Jul 04, 2022 05:53
[2022-07-04] MEDS: LEVOTHYROXINE 125 MCG (LEVOTHROID) TABLET PO SCH (06:00)
[2022-07-04] MEDS: METOCLOPRAMIDE 10 MG (REGLAN) TAB PO SCH ×4 (06:01→22:42)
[2022-07-04] MEDS: VENlafaxine 75 MG (EFFEXOR) TAB PO SCH (06:01)
[2022-07-04] MEDS: CLINDAMYCIN 150 MG (CLEOCIN) CAP PO SCH ×4 (06:01→23:40)
[2022-07-04 06:04] LABS: HEMATOCRIT 22 % (40-54); MEAN CORPUSCULAR HEMOGLOBIN 28 pg (25-34); MEAN CORPUSCULAR HGB CONC 32 g/dL (32-36); MEAN CORPUSCULAR VOLUME 89 fL (80-99); MEAN PLATELET VOLUME 9.9 fL (9.0-12.2); PLATELET COUNT 514 10^3/uL (130-400); WHITE BLOOD COUNT 16.4 10^3/uL (4.3-11.0)
[2022-07-04 06:26] LABS: CALCIUM 8.7 MG/DL (8.5-10.1); CREATININE SERUM 1.66 MG/DL (0.60-1.30); POTASSIUM 4.5 MMOL/L (3.6-5.0)
--- NOTE | 2022-07-04 08:13 | Cardiology History & Physical ---
HPI-Cardiology Cardiology Consultation Date of Consultation 07/04/22 Date of Admission Time Seen by Provider: 08:08 Indication: Critical limb ischemia HPI 71 years old gentleman with history of CVA, hypertension, hyperlipidemia and diabetes mellitus, was seen in my office on June 29, 2022 with critical limb ischemia and gangrene on the second toe of his right side. He was scheduled for peripheral angiogram and angioplasty as an outpatient. Patient underwent angioplasty yesterday, he is recovering well, had palpable posterior tibial artery pulse. I discussed with Dr. Dahl regarding the gangrene and his leukocytosis and he could benefit from amputation. PMH-Cardiology Immunizations Up To Date Tetanus Booster (DTap): More than 5yrs Date of Pneumonia Vaccine: Aug 21, 2016 Date of Influenza Vaccine: Aug 24, 2020 Seasonal Allergies Seasonal Allergies: Yes Surgeries Yes (hemmorhoids removed, CATARACTS, WRIST FX) Respiratory Yes Cardiovascular Yes Neurological Yes Dementia, Neuropathy, Parkinson's Disease Reproductive System Hx Reproductive Disorders: No Sexually Transmitted Disease: No HIV/AIDS: No Genitourinary No Gastrointestinal Yes Gastroesophageal Reflux, Chronic Constipation, Hemorrhoids, Chronic Diarrhea, Irritable Bowel Musculoskeletal Yes Arthritis, Chronic Back Pain, Fractures Endocrine Yes (Type II) Diabetes, Insulin dep HEENT Cataract Loss of Vision: Bilateral Hearing Impairment: Denies Cancer No Psychosocial Yes Anxiety, Depression Integumentary No Blood Transfusions No Adverse Rxn to Transfusion: No (N/A) Social History Patient Social History Marrital Status: Employed/Student: retired Family Hx Significant Family History: Hypertension Family History: 19 FATHER Arthritis Asthma Cataracts Completed stroke Diabetes mellitus Hypertension 19 MOTHER Alzheimer's disease Arthritis Cataracts Diabetes mellitus Hypertension G8 BROTHER Alcoholism Cataracts Deafness or hearing loss Diabetes mellitus Hypertension G8 BROTHER Alcoholism Cataracts Diabetes mellitus Hypertension G8 BROTHER Diabetes mellitus Hypertension G8 BROTHER Hypertension Respiratory disorder G8 SISTER Cataracts Diabetes mellitus Hypertension G8 SISTER Cataracts Diabetes mellitus Hypertension G8 SISTER Cataracts Diabetes mellitus Hypertension G8 SISTER Completed stroke Hypertension G8 SISTER Hypertension G8 SISTER Hypertension G8 SISTER Hypertension ROS-Cardiology Review of Systems General: No Chills, No Night Sweats; Fatigue; No Malaise, No Appetite HEENT: No Head Aches, No Visual Changes, No Eye Pain, No Ear Pain, No Dysphasia, No Sinus Congestion, No Post Nasal Drip, No Sore Throat Pulmonary: Dyspnea; No Cough, No Pleuritic Chest Pain Cardiovascular: No: Chest Pain, Palpitations, Orthopnea, Paroxysmal Noc. Dyspnea, Edema, Lt Headedness Gastrointestinal: No: Nausea, Vomiting, Abdominal Pain, Diarrhea, Constipation, Melena, Hematochezia Genitourinary: No Dysuria, No Frequency, No Incontinence, No Hematuria, No Retention Musculoskeletal: No: neck pain, shoulder pain, arm pain, back pain, hand pain, leg pain, foot pain Neurological: No: Weakness, Numbness, Incoordination, Change in speech, Confusion, Seizures Home Medications & Allergies Allergies: Coded Allergies: choline fenofibrate (Verified Allergy, Unknown, 12/07/17) gemfibrozil (Verified Allergy, Unknown, 12/07/17) niacin (Verified Allergy, Unknown, 12/07/17) pioglitazone (Verified Allergy, Unknown, 12/07/17) Home Medication List Reviewed: Yes Exam-Cardiology Vital Signs Vital Signs Date Time Temp Pulse Resp B/P (MAP) Pulse Ox O2 Delivery O2 Flow Rate FiO2 07/04/22 07:40 87 07/04/22 04:00 37.1 21 138/70 (92) 99 Nasal Cannula 1.00 Exam General Appearance: Alert, Oriented X3, Cooperative, No Acute Distress HEENT: Atraumatic, PERRLA Respiratory: Clear to Auscultation, Normal Air Movement Cardiovascular: Regular Rate, Normal S1, Normal S2, No Murmurs Abdominal: Normal Bowel Sounds, Soft, No Tenderness, No Hepatosplenomegaly, No Masses Extremities: No Clubbing, No Cyanosis, No Edema, Normal Pulses, No Tenderness/Swelling Skin: No Rashes, No Breakdown, No Significant Lesion Neuro: Normal Gait, Normal Speech, Strength at 5/5 X4 Ext, Normal Tone, Sensation Intact Psych/Mental Status: Mental Status NL, Mood NL Results Labs Labs Laboratory Tests 07/03/22 14:22: Glucometer 139H 07/03/22 20:17: Glucometer 124H 07/04/22 05:06: White Blood Count 16.4H, Red Blood Count 2.48L, Hemoglobin 7.0L, Hematocrit 22L, Mean Corpuscular Volume 89, Mean Corpuscular Hemoglobin 28, Mean Corpuscular Hemoglobin Concent 32, Red Cell Distribution Width 13.8, Platelet Count 514H, Mean Platelet Volume 9.9, Sodium Level 136, Potassium Level 4.5, Chloride Level 107, Carbon Dioxide Level 19L, Anion Gap 10, Blood Urea Nitrogen 26H, Creatinine 1.66H, Estimat Glomerular Filtration Rate 44, BUN/Creatinine Ratio 16, Glucose Level 95, Calcium Level 8.7 07/04/22 05:59: Glucometer 89 Microbiology 07/03/22 MRSA Screen - Final, Complete MRSA not isolated A/P-Cardiology Admission Diagnosis Critical limb ischemia Gangrene Peripheral arterial disease Hypertension Hyperlipidemia Admission Status: Observation Reason for Inpatient Admission: Critical limb ischemia Assessment/Plan Ischemic gangrene of the right toe. Nonhealing ulcer. Peripheral angiogram was done on July 03, 2022 with balloon angioplasty to the right SFA, right tibioperoneal trunk and right posterior tibial artery. Patient has palpable posterior tibial pulse. The anterior tibial artery is occluded and not reconstructed. No intervention was done on it. I discussed with Dr. Dahl the management plan and recommended considering amputation. Status post recent CVA, was transferred from [facility] to [facility] in [place]. I will try to obtain copy of the hospital records Gangrene, leukocytosis. I will start empiric antibiotic Hyperlipidemia, maintained on Lipitor 80 mg daily Hypertension, monitor blood pressure Diabetes mellitus, followed and managed by primary care physician Twelve-lead EKG showed sinus rhythm with low voltage, nonspecific T wave abnormality History of tobaccoism in the remote past. BRITTANY CARRERO MD Jul 04, 2022 08:13
[2022-07-04] MEDS: CLOPIDOGREL 75 MG (PLAVIX) TABLET PO SCH (08:37)
[2022-07-04] MEDS: inSUlin ASPART (NovoLOG) 1 UNIT/0.01 ML (CHARGE PER UNIT) SC SCH ×3 (08:37→19:28)
[2022-07-04] MEDS: ASPIRIN E.C. 81 MG (ECOTRIN) TAB PO SCH (08:37)
[2022-07-04] MEDS: CEPHALEXIN 250 MG (KEFLEX) CAP PO SCH ×3 (08:38→20:33)
[2022-07-04] MEDS ORDERED: INSULIN DEGLUDEC 70 UNIT SC SCH (09:00)
[2022-07-04] MEDS ORDERED: NON-FORMULARY MEDICATION 1 EA EA (Mirabegron (Myrbetriq) 50 MG) PO SCH (09:00)
[2022-07-04] MEDS ORDERED: PIPERACILLIN SODIUM/TAZOBACTAM 4.5 GM in NS (IVPB) 100 ML IV ONE (09:15)
[2022-07-04] MEDS ORDERED: LIDOCAINE 1% INJ 20 ML VIAL ONE (10:19)
[2022-07-04] MEDS ORDERED: BUPIVACAINE 0.5% 30 ML (SENSORCAINE) VIAL ONE ×2 (10:20→10:28)
[2022-07-04] MEDS ORDERED: MIDAZOLAM 2 MG/2 ML (VERSED) VIAL ONE (11:02)
[2022-07-04] MEDS ORDERED: PROPOFOL INJECTION 50 ML IV ONE (11:04)
--- NOTE | 2022-07-04 11:12 | Progress Note-Pre Operative ---
Pre-Operative Progress Note Date of Available H&P: Jul 04, 2022 Date H&P Reviewed: Jul 04, 2022 Time H&P Reviewed: 11:11 History & Physical: H&P Reviewed, Patient Examed, No changes noted Pre-Operative Diagnosis: Gangrene, Cellulitis right foot GILES CAMACHO DPEliza Jul 04, 2022 11:12
--- NOTE | 2022-07-04 12:04 | Progress Note-Post Operative ---
Post-Operative Progess Note Surgeon (s)/Pool Technician (s) Surgeon GILES CAMACHO DPM Pool Technician: none Pre-Operative Diagnosis Gangrene, Cellulitis right foot Post-Operative Diagnosis Same Procedure & Operative Findings Date of Procedure 07/04/22 Procedure Performed/Findings Amputation of the right 2nd toe Anesthesia Type MAC Estimated Blood Loss Estimated blood loss (mL): Minimal Specimens/Packing Specimens Removed right 2nd toe Packing: Iodoform GILES CAMACHO DPM Jul 04, 2022 12:04
--- NOTE | 2022-07-04 12:09 | Anesthesia-General Post-Op ---
MAC Patient Condition Mental Status/LOC: Same as Preop Cardiovascular: Satisfactory Nausea/Vomiting: Absent Respiratory: Satisfactory Pain: Controlled Complications: Absent Post Op Complications Complications None Follow Up Care/Instructions Patient Instructions None needed. Anesthesiology Discharge Order Discharge Order Patient is doing well, no complaints, stable vital signs, no apparent adverse anesthesia problems. No complications reported per nursing. LILIYA OMALLEY CRNA Jul 04, 2022 12:09
--- NOTE | 2022-07-04 13:00 | Consultation - Hospitalist ---
JUJU TAMAYO 07/04/22 1300: HPI History of Present Illness: HPI/Chief Complaint Critical Limb ischemia leading to gangrene of Rt 2nd toe 71M with hx of CVA, HTN, HLD, and DM s/p rt 2nd toe amputation due to gangrene today. Pt was comfortable lying in bed and reported no pain. Pt denies any SOB, Chest pain, fever, or N/V. Rt foot was elevated packed and dressed with additional cold packs. LE proximal to dressings had no edema or erythema. Per surg notes, procedure went as planned with no post-op complications. Plans to restart IV abx post-op with continued monitoring/supportive care. Source: patient, old records Exam Limitations: no limitations, other (surgical dressing on rt foot) Date Seen 07/04/22 Attending Physician Vinh Paulino MD PCP Admitting Physician: Attending Physician: Kallie Vargas DO Referring Physician Date of Admission Home Medications & Allergies Home Medications Reviewed patient Home Medication Reconciliation performed by pharmacy medication reconciliations motion study technician and/or nursing. Patients Allergies have been reviewed. Allergies Allergies Coded Allergies choline fenofibrate (Verified Allergy, Unknown, 12/07/17) gemfibrozil (Verified Allergy, Unknown, 12/07/17) niacin (Verified Allergy, Unknown, 12/07/17) pioglitazone (Verified Allergy, Unknown, 12/07/17) Past Ufxtgke-Uapmbc-Kdacbk Hx Patient Social History Marrital Status: Employed/Student: retired Immunizations Up To Date Date of Influenza Vaccine: Aug 24, 2020 First/Initial COVID19 Vaccinat: NO Second COVID19 Vaccination Ben: NO Tetanus Booster (TDap): Less Than 5 Years Hepatitis A: No Hepatitis B: No PED Vaccines UTD: No Date of Pneumonia Vaccine: Aug 21, 2016 Seasonal Allergies Seasonal Allergies: Yes Current Status Primary Language: Icelandic Past Medical History Surgeries: Eye Surgery, Gallbladder, Orthopedic Pneumonia, Sleep Apnea, COPD Currently Using CPAP: No High Cholesterol, Hypertension Dementia, Neuropathy, Parkinson's Disease Sexually Transmitted Disease: No HIV/AIDS: No Gastroesophageal Reflux, Chronic Constipation, Hemorrhoids, Chronic Diarrhea, Irritable Bowel Arthritis, Chronic Back Pain, Fractures Diabetes, 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 Hearing Impairment: Denies Anxiety, Depression Blood Disorders: No Adverse Reaction/Blood Tranf: No (N/A) Diabetes mellitus Hypothyroidism Hypertension Surg Hx: eye surgery, cholecystectomy Family Medical History Alcoholism G8 BROTHER G8 BROTHER Alzheimer's disease 19 MOTHER Arthritis 19 FATHER 19 MOTHER Asthma 19 FATHER Cataracts 19 FATHER 19 MOTHER G8 BROTHER G8 BROTHER G8 SISTER G8 SISTER G8 SISTER Completed stroke 19 FATHER G8 SISTER Deafness or hearing loss G8 BROTHER Diabetes mellitus 19 FATHER 19 MOTHER G8 BROTHER G8 BROTHER G8 BROTHER G8 SISTER G8 SISTER G8 SISTER Hypertension 19 FATHER 19 MOTHER G8 BROTHER G8 BROTHER G8 BROTHER G8 BROTHER G8 SISTER G8 SISTER G8 SISTER G8 SISTER G8 SISTER G8 SISTER G8 SISTER Respiratory disorder G8 BROTHER No Family History of: AIDS Abdominal aortic aneurysm [place]'s disease Aphasia Cancer of mouth Cardiovascular disease Colon cancer Congenital disease Congenital heart disease Coronary thrombosis Cystic fibrosis Dementia Drug abuse Dysphasia Fibrocystic disease of breast Gastroenteritis Glaucoma Headache disorder Hypercholesterolemia Infertility Kidney disease Myocardial infarction Neoplasm Not obtainable due to adoption Osteoporosis Parkinson's disease Prostate cancer Psychosocial problem Seizure disorder Severe allergy Thyroid disease Tuberculosis Visual disorder Hypertension Review of Systems Constitutional: see HPI EENTM: no symptoms reported Respiratory: No cough, No short of breath, No stridor, No wheezing Cardiovascular: No chest pain, No palpitations Gastrointestinal: No abdominal pain, No jaundice, No nausea, No vomiting Genitourinary: no symptoms reported Musculoskeletal: see HPI Skin: see HPI Psychiatric/Neurological: See HPI Physical Exam Physical Exam Vital Signs Vital Signs - First Documented 07/03/22 07/03/22 08:22 16:00 Temp 36.0 Pulse 94 Resp 18 B/P (MAP) 129/76 (93) Pulse Ox 95 O2 Delivery Room Air O2 Flow Rate 2.00 Capillary Refill : Less Than 3 Seconds Height, Weight, BMI Height: 5'10.00" Weight: 161lbs. 4.0oz. [id number]; 25.54 BMI Method:Stated General Appearance: No Apparent Distress, Other (mildly sedated ) Neck: Normal Inspection, Non Tender, Supple Respiratory: Chest Non Tender, Lungs Clear, Normal Breath Sounds, No Accessory Muscle Use, No Respiratory Distress Cardiovascular: Regular Rate, Rhythm, No Edema, No Gallop, No JVD, No Murmur Gastrointestinal: No Organomegaly, No Pulsatile Mass, Non Tender, Soft Extremity: No Calf Tenderness; Other (unable to inspect rt foot due to dressings.) Neurologic/Psychiatric: Alert, Oriented x3, Other (mild sedation) Skin: No Diaphoresis, No Ecchymosis; Pallor (distal LE) Results Results/Procedures Labs Laboratory Tests 07/03/22 08:18 07/04/22 05:06 Patient resulted labs reviewed. Assessment/Plan Assessment and Plan Assess & Plan/Chief Complaint Restart IV abx resume HTN and HLD medications Obtain CBC and CMP to access electrolytes Hgb and glucose Consult PT/OT pain control supportive care with supplemental O2 consult wound care ALICIAKALLIE DO 07/04/222050: HPI History of Present Illness: HPI/Chief Complaint CC: Right second toe gangrene HPI: This is a [facility] pt who is known to wound care and Dr. Dahl. He is undergoing a right second toe amputation after vascular intervention of the right leg to facilitate healing by Dr. Fu. White count is down from 24 to 16. He is having the amputation done. He will be monitored closely in the meantime. Source: patient Exam Limitations: no limitations Past Xfievpw-Acjuuq-Hdsjqw Hx Patient Social History Marrital Status: Employed/Student: retired Smoking Status: Former Smoker Past Medical History Surgeries: Orthopedic Diabetes, Insulin dep Family Medical History Alcoholism G8 BROTHER G8 BROTHER Alzheimer's disease 19 MOTHER Arthritis 19 FATHER 19 MOTHER Asthma 19 FATHER Cataracts 19 FATHER 19 MOTHER G8 BROTHER G8 BROTHER G8 SISTER G8 SISTER G8 SISTER Completed stroke 19 FATHER G8 SISTER Deafness or hearing loss G8 BROTHER Diabetes mellitus 19 FATHER 19 MOTHER G8 BROTHER G8 BROTHER G8 BROTHER G8 SISTER G8 SISTER G8 SISTER Hypertension 19 FATHER 19 MOTHER G8 BROTHER G8 BROTHER G8 BROTHER G8 BROTHER G8 SISTER G8 SISTER G8 SISTER G8 SISTER G8 SISTER G8 SISTER G8 SISTER Respiratory disorder G8 BROTHER No Family History of: AIDS Abdominal aortic aneurysm [place]'s disease Aphasia Cancer of mouth Cardiovascular disease Colon cancer Congenital disease Congenital heart disease Coronary thrombosis Cystic fibrosis Dementia Drug abuse Dysphasia Fibrocystic disease of breast Gastroenteritis Glaucoma Headache disorder Hypercholesterolemia Infertility Kidney disease Myocardial infarction Neoplasm Not obtainable due to adoption Osteoporosis Parkinson's disease Prostate cancer Psychosocial problem Seizure disorder Severe allergy Thyroid disease Tuberculosis Visual disorder Review of Systems Constitutional: see HPI Physical Exam Physical Exam General Appearance: No Apparent Distress, WD/WN, Chronically ill Respiratory: Lungs Clear, Normal Breath Sounds Cardiovascular: Regular Rate, Rhythm Neurologic/Psychiatric: Alert, Oriented x3 Assessment/Plan Assessment and Plan Assess & Plan/Chief Complaint Assessment: Right 2nd toe amputation by DR Dahl due to gangrene DM HTN HLP s/p intervention right PVD Dr Fu Supervisory-Addendum Brief Verification & Attestation Participated in pt care: history, MDM, physical Personally performed: exam, history, MDM, supervision of care Care discussed with: Medical Student Procedures: n/a Results interpretation: Verified all documentation Verification and Attestation of Medical Student E/M Service A medical student performed and documented this service in my presence. I reviewed and verified all information documented by the medical student and made modifications to such information, when appropriate. I personally performed the physical exam and medical decision making. Kallie Vargas, Jul 04, 2022,20:51 JUJU TAMAYO Jul 04, 2022 13:00 KALLIE VARGAS DO Jul 04, 2022 20:51
--- NOTE | 2022-07-04 13:30 | Physical Therapy Evaluation ---
PT Evaluation-General Medical Diagnosis Admission Date July 03, 2022 Medical Diagnosis: claudication Onset Date: Jul 03, 2022 Therapy Diagnosis Therapy Diagnosis: debility/weakness Height/Weight Height (Feet): 5 Height (Inches): 10.00 Weight (Pounds): 161 Weight (Ounces): 4.0 Precautions Precautions/Isolations: Fall Prevention, Standard Precautions Weight Bear Status Right Lower Extremity: Right Partial Weight Bearing Left Lower Extremity: Left Full Weight Bearing unable to comply with PWB right LE with surgical shoe in place Referral Physician: Nabila Reason for Referral: Evaluation/Treatment Medical History Pertinent Medical History: Arthritis, COPD, CVA, DM, Dementia, GERD, HTN, Neuropathy Current History s/p right second toe amputation Reviewed History: Yes Social History Home: Single Level Current Living Status: Spouse Entry Into Home: Ramp Prior Prior Level of Function SCALE: Activities may be completed with or without assistive devices. 1-Pxjfxlzgop-jyxjfmn completes the activity by him/herself with no assistance from a helper. 5-Set-up or Clean-up Assistance-helper sets up or cleans up; patient completes activity. [place] assists only prior to or following the activity. 4-Supervision or Touching Assistance-helper provides verbal cues and/or touching/steadying and/or contact guard assistance as patient completes act ivity. Assistance may be provided throughout the activity or intermittently. 3-Partial/Moderate Assistance-helper does LESS THAN HALF the effort. [place] lifts, holds or supports trunk or limbs, but provides less than half the effort. 2-Substantial/Maximal Assistance-helper does MORE THAN HALF the effort. [place] lifts or holds trunk or limbs and provides more than half the effort. 9-Dgahrurqn-gvzzcx does ALL the effort. Patient does none of the effort to complete the activity. Or, the assistance of 2 or more helpers is required for the patient to complete the activity. If activity was not attempted, code reason: 7-Patient Refused. 9-Not Applicable-not attempted and the patient did not perform the activity before the current illness, exacerbation or injury. 10-Not Attempted due to Environmental Limitations-(lack of equipment, weather restraints, etc.). 88-Not Attempted due to Medical Conditions or Safety Concerns. Bed Mobility: 4 Transfers (B,C,W/C): 4 Gait: 4 Indoor Mobility (Ambulation): Needed Some Help Stairs: Not Applicalbe Prior Devices Use: Walker PT Evaluation-Current Subjective Patient and spouse agree to PT. Pain Numeric Pain Scale: 0-No Pain Location: No Pain Reported Objective Patient Orientation: Person, Time, Situation Attachments: Gaffney Catheter, IV ROM/Strength ROM Lower Extremities bilateral LE WFL Strength Lower Extremities right LE 3/5 grossly/left LE 3-/5 grossly Integumentary/Posture Integumentary refer to nursing notes Bowel Incontinence: Yes Bladder Incontinence: Gaffney Cath Posture WFL Neuromuscular (Tone, Coordination, Reflexes) diminished coordination due to weakness and recent surgery Sensory Vision: Functional Hearing: Functional Sensation Right Lower Extremit: Impaired Sensation Left Lower Extremity: Impaired Transfers Sit to Lying (QC): 3 Lying to Sitting/Side of Bed(Q: 3 Sit to Stand (QC): 3 Toilet Transfer (QC): 3 Gait Does the Patient Walk?: Yes Mode of Locomotion: Both Anticipated Mode of Locomotion: Both Walk 10 feet (QC): 3 Walk 50 ft with 2 Turns(QC): 88 Walk 150 ft (QC): 88 Distance: 10' Gait Assistive Device: FWW Comments/Gait Description unable to comply with PWB right foot due to weakness and overall debility Balance Sitting Static: Normal Sitting Dynamic: Normal Standing Static: Fair Standing Dynamic: Fair Assessment/Needs 71 y.o. male, will be seen short term by skilled PT to address functional strength and mobility to improve current LOF. Patient is PWB right LE due to 2nd toe amputation. Unable to comply with weight bearing status right foot. Rehab Potential: Fair PT Doctor Chiropractic Goals Assisted Goals PT Doctor Chiropractic Goals Time Frame: Jul 15, 2022 Roll Left & Right (QC): 4 Sit to Lying (QC): 4 Lying-Sitting on Side/Bed(QC): 4 Sit to Stand (QC): 4 Chair/Jlc-rd-Vdura Xfer(QC): 4 Toilet Transfer (QC): 4 Walk 10 feet (QC): 4 Walk 50ft with 2 Turns (QC): 4 PT Plan Problem List Problem List: Activity Tolerance, Functional Strength, Safety, Balance, Gait, Transfer, Bed Mobility Treatment/Plan Treatment Plan: Continue Plan of Care Treatment Plan: Bed Mobility, Education, Functional Activity [place], Functional Strength, Gait, Safety, Therapeutic Exercise, Transfers Treatment Duration: Jul 15, 2022 Frequency: 6 times per week Estimated Hrs Per Day: .25 hour per day Patient and/or Family Agrees t: Yes Time/GCodes Time In: 1300 Time Out: 1318 Total Billed Treatment Time: 18 Total Billed Treatment 1 visit [facility] 18 min AUGUSTUS HOOPER PT Jul 04, 2022 13:30
[2022-07-04] MEDS: LACTATED RINGERS 1,000 ML IV SCH ×3 (14:25→23:40)
[2022-07-04] MEDS: LOSARTAN 100 MG (COZAAR) TABLET PO SCH (14:50)
[2022-07-04] MEDS: amLODIPine 5 MG (NORVASC) TAB PO SCH (14:50)
--- NOTE | 2022-07-04 17:23 | OPERATIVE REPORT ---
DATE OF SERVICE: 07/04/2022 SURGEON: Jenna Dahl DPM PREOPERATIVE DIAGNOSIS: Gangrene with cellulitis, right foot. POSTOPERATIVE DIAGNOSIS: Gangrene with cellulitis, right foot. PROCEDURE: Amputation of right second toe. WOUND CLASS: Contaminated. ANESTHESIA: Monitored anesthesia care. HEMOSTASIS: Pneumatic ankle tourniquet, which never was inflated. INDICATIONS: This 71-year-old male was admitted under Dr. Fu for revascularization of the right lower extremity after gangrenous changes happened to the right second toe. The patient has also had an elevated white count and was kept for IV antibiotics. The patient is agreeable to surgical intervention after risks and complications were discussed at length. No guarantees were extended to the patient. He is aware that with his vascular status that he may lose more than the gangrenous right second toe. DESCRIPTION OF PROCEDURE: The patient was brought back to the operating table, placed in secure supine position. Appropriate timeout was performed. An ankle block was performed utilizing 20 mL of 1:1 mixture of 1% Xylocaine, 0.5% Marcaine injected posterior tibial block as well as a deep peroneal block and local infusion to the second ray, right foot, great care taken not to infuse into any blood vessels. There was a palpable posterior tibial pulse on the right lower extremity today. The right lower extremity had an ankle tourniquet was applied, but was never inflated throughout the procedure. The right foot was then prepped and draped in normal sterile manner. The right foot was observed to have dark gangrenous changes to the right second toe with some colored discoloration darkening to the plantar aspect of the right second metatarsal head area. There was noted to be malodor with prep and surgical procedure. There are two incisions created starting at the second metatarsal head extending along the medial aspect of the right third toe where some dusky, oliva, dystrophic changes were noted to the skin tissue adjacent to the gangrenous changes of the second toe. The incision was extended plantarly along the second metatarsal head. The second incision was from the same starting point medially between the first and second digits and then extended plantarly to the second metatarsal head area. The incision was deepened down to bone where there was a disarticulation at the metatarsophalangeal joint. The second toe was then sampled for deep bone culture. This sample was sent for culture and sensitivity. The remainder of the toe was sent for gross and microscopic evaluation. There was some purulence noted to the dorsal lateral aspect of the second metatarsal head. This probed only about a few millimeters. This area was again cultured with swab. No other necrotic or grossly infected tissue was identified in the surgical area. Utilizing power irrigation with normal saline, 2000 mL were utilized for irrigation after which a second swab culture was performed. The wound was then packed with 0.5 inch iodoform packing followed by sterile 4 x 4's, Kerlix. The patient tolerated the anesthesia well. He will be admitted to the fourth floor under Dr. Jiang for internal medicine as well as Dr. Redd for wound care. The patient is welcome to follow up in my office as necessary. I advised the patient to be minimal weightbearing on the right lower extremity as his heels. I anticipate that he will need a delayed primary closure. I anticipate that further amputation will likely be necessary as he bled very little throughout this procedure. Job ID: [id number] DocumentID: [id number] Dictated Date: 07/04/2022 12:18:14 Dairy Nutritionist Date: 07/04/2022 17:22:35 Dictated By: MARCY KAUFMAN
--- NOTE | 2022-07-04 19:40 | Diagnostic Imaging Report ---
INDICATION: Postop FINDINGS: There has been 2nd toe amputation with some packing material in the defect. No suspicious retained opaque foreign body. IMPRESSION: Digital amputation with no suspicious retained opaque foreign body. Residual bony structures unremarkable. Dictated by: Dictated on workstation # [id number]
[2022-07-04] MEDS ORDERED: ONDANSETRON 4 MG (ZOFRAN) ORAL DISSOLVE TAB PO PRN (21:00)
[2022-07-04] MEDS ORDERED: ACETAMINOPHEN 325 MG TABLET PO PRN (21:00)
[2022-07-04] MEDS ORDERED: cloNIDine 0.1 MG (CATAPRES) TAB PO PRN (21:00)
[2022-07-04] MEDS ORDERED: DOCUSATE SODIUM 100 MG (COLACE) CAP PO PRN (21:00)
[2022-07-04] MEDS ORDERED: HYDROcodone/APAP 5 MG/325 MG (LORTAB) TAB PO PRN (21:00)
[2022-07-04] MEDS ORDERED: guaiFENesin/CODEINE (ROBITUSSIN AC) 10ML UDC PO PRN (21:00)
[2022-07-04] MEDS ORDERED: ONDANSETRON 4 MG/2 ML (SDV) Z0FRAN IVP PRN (21:00)
[2022-07-04] MEDS ORDERED: MENTHOL/ZINC OXIDE (CALMOSEPTINE) 113 GM TUBE TP PRN (21:00)
[2022-07-04] MEDS ORDERED: diphenhydrAMINE 25 MG TAB (BENADRYL) PO PRN (21:00)
[2022-07-04] MEDS ORDERED: amLODIPine 5 MG (NORVASC) TAB PO ONE (21:00)
[2022-07-04] MEDS ORDERED: MELATONIN 3 MG TABLET PO PRN (21:00)
[2022-07-04] MEDS ORDERED: ALPRAZolam 0.25 MG (XANAX) TAB PO PRN (21:00)
[2022-07-04] MEDS ORDERED: BISACODYL 10 MG SUPP (DULCOLAX) PR PRN (21:00)
[2022-07-04] MEDS ORDERED: LOPERAMIDE 2 MG (IMODIUM) TABLET PO PRN (21:00)
[2022-07-04] MEDS ORDERED: CALCIUM CARBONATE 500 MG (TUMS) TAB.CHEW PO PRN (21:00)
[2022-07-04] MEDS: polyethylene glycoL POWDER 17 GM (MIRALAX) PACK PO SCH (22:41)
[2022-07-04] MEDS: SENNA W/DOCUSATE (SENOKOT S) TABLET PO SCH (22:43)
[2022-07-05] VITALS (14 sets, daily range): BP systolic 119–186; BP diastolic 53–84
[2022-07-05] MEDS: NS IV 1000 ML 1,000 ML IV SCH ×2 (05:06→18:28)
[2022-07-05 05:44] LABS: BASOPHILS # (AUTO) 0.1 10^3/uL (0.0-0.1); BASOPHILS % (AUTO) 0 % (0-10); EOSINOPHILS # (AUTO) 0.2 10^3/uL (0.0-0.3); EOSINOPHILS % (AUTO) 1 % (0-10); HEMATOCRIT 24 % (40-54); HEMOGLOBIN 7.9 g/dL (13.3-17.7); LYMPHOCYTES # (AUTO) 2.6 10^3/uL (1.0-4.0); LYMPHOCYTES % (AUTO) 14 % (12-44); MEAN CORPUSCULAR HEMOGLOBIN 29 pg (25-34); MEAN CORPUSCULAR HGB CONC 33 g/dL (32-36); MEAN CORPUSCULAR VOLUME 88 fL (80-99); MEAN PLATELET VOLUME 9.3 fL (9.0-12.2); MONOCYTES # (AUTO) 1.8 10^3/uL (0.0-1.0); MONOCYTES % (AUTO) 10 % (0-12); NEUTROPHILS # (AUTO) 13.4 10^3/uL (1.8-7.8); NEUTROPHILS % (AUTO) 74 % (42-75); PLATELET COUNT 583 10^3/uL (130-400); WHITE BLOOD COUNT 18.1 10^3/uL (4.3-11.0)
[2022-07-05] MEDS: CLINDAMYCIN 150 MG (CLEOCIN) CAP PO SCH (05:53)
[2022-07-05 05:54] LABS: ALBUMIN 2.8 GM/DL (3.2-4.5)
[2022-07-05 05:55] LABS: CALCIUM 9.2 MG/DL (8.5-10.1)
[2022-07-05 05:56] LABS: TOTAL PROTEIN 7.6 GM/DL (6.4-8.2)
[2022-07-05 05:58] LABS: BILIRUBIN,TOTAL 0.5 MG/DL (0.1-1.0)
[2022-07-05 06:00] LABS: CREATININE SERUM 1.62 MG/DL (0.60-1.30)
[2022-07-05 06:03] LABS: BAND NEUTROPHILS 1 %; LYMPHOCYTES % (MANUAL) 18 %; NEUTROPHILS % (MANUAL) 78 %
[2022-07-05 06:04] LABS: ANISOCYTOSIS SLIGHT; EOSINOPHILS % (MANUAL) 1 %; MONOCYTES % (MANUAL) 2 %; PLATELET ESTIMATE CONSISTENT W COUNT
[2022-07-05] MEDS: LEVOTHYROXINE 125 MCG (LEVOTHROID) TABLET PO SCH (06:46)
[2022-07-05] MEDS: LOSARTAN 100 MG (COZAAR) TABLET PO SCH (08:27)
[2022-07-05] MEDS: CEPHALEXIN 250 MG (KEFLEX) CAP PO SCH (08:27)
[2022-07-05] MEDS: VENlafaxine 75 MG (EFFEXOR) TAB PO SCH (08:27)
[2022-07-05] MEDS: ASPIRIN E.C. 81 MG (ECOTRIN) TAB PO SCH (08:27)
[2022-07-05] MEDS: CLOPIDOGREL 75 MG (PLAVIX) TABLET PO SCH (08:27)
[2022-07-05] MEDS: MIRABEGRON 25 MG TAB (MYRBETRIQ) PO SCH (08:27)
[2022-07-05] MEDS: amLODIPine 5 MG (NORVASC) TAB PO SCH (08:27)
[2022-07-05] MEDS: inSUlin ASPART (NovoLOG) 1 UNIT/0.01 ML (CHARGE PER UNIT) SC SCH ×3 (08:28→18:11)
[2022-07-05] MEDS: METOCLOPRAMIDE 10 MG (REGLAN) TAB PO SCH ×4 (08:35→20:44)
[2022-07-05] MEDS: polyethylene glycoL POWDER 17 GM (MIRALAX) PACK PO SCH ×2 (08:59→20:43)
[2022-07-05] MEDS: SENNA W/DOCUSATE (SENOKOT S) TABLET PO SCH ×2 (08:59→20:43)
[2022-07-05] MEDS ORDERED: amLODIPine 5 MG (NORVASC) TAB PO SCH (09:00)
--- NOTE | 2022-07-05 09:26 | Physical Therapy Daily Note ---
PT Daily Note-Current Subjective Pt's reports he is less alert today and not moving has well. Mental Status Patient Orientation: Person, Place, Situation Attachments: Oxygen, Gaffney Catheter, IV Transfers SCALE: Activities may be completed with or without assistive devices. 3-Kgnowdfvni-qkoomes completes the activity by him/herself with no assistance from a helper. 5-Set-up or Clean-up Assistance-helper sets up or cleans up; patient completes activity. [place] assists only prior to or following the activity. 4-Supervision or Touching Assistance-helper provides verbal cues and/or touching/steadying and/or contact guard assistance as patient completes activity. Assistance may be provided throughout the activity or intermittently. 3-Partial/Moderate Assistance-helper does LESS THAN HALF the effort. Sandstone lifts, holds or supports trunk or limbs, but provides less than half the effort. 2-Substantial/Maximal Assistance-helper does MORE THAN HALF the effort. [place] lifts or holds trunk or limbs and provides more than half the effort. 9-Ebeoohpvr-isqkfe does ALL the effort. Patient does none of the effort to complete the activity. Or, the assistance of 2 or more helpers is required for the patient to complete the activity. If activity was not attempted, code reason: 7-Patient Refused. 9-Not Applicable-not attempted and the patient did not perform the activity before the current illness, exacerbation or injury. 10-Not Attempted due to Environmental Limitations-(lack of equipment, weather restraints, etc.). 88-Not Attempted due to Medical Conditions or Safety Concerns. Roll Left & Right (QC): 3 Sit to Lying (QC): 2 Lying to Sitting/Side of Bed(Q: 2 Chair/Ays-sk-Utvww Xfer(QC): 2 Leaning hard to the (L) during sitting and standing. Transferred stand pivot to bedside chair with Max assist Weight Bearing Right Lower Extremity: Right Partial Weight Bearing Left Lower Extremity: Left Full Weight Bearing unable to comply with PWB right LE with surgical shoe in place Gait Training Standing bedside x 3 trials worked standing wt shift, forward backward foot advancement while holding FWW and education on PWB (R). Exercises Worked seated wt shift and finding midline posture. Cervical ROM with (L) upper trap stretching. Assessment Pt leaning hard left. Able to hold midline for very short times, not able to hold postures shifted to the (R). Pt not able to maintain PWB status during standing or transfers. PT Vision Teacher Goals Vision Teacher Goals PT Senior Care Goals Time Frame: Jul 15, 2022 Roll Left & Right (QC): 4 Sit to Lying (QC): 4 Lying-Sitting on Side/Bed(QC): 4 Sit to Stand (QC): 4 Chair/Niu-sq-Ewijs Xfer(QC): 4 Toilet Transfer (QC): 4 Walk 10 feet (QC): 4 Walk 50ft with 2 Turns (QC): 4 PT Plan Treatment/Plan Treatment Plan: Continue Plan of Care Treatment Plan: Bed Mobility, Education, Functional Activity Pola, Functional Strength, Gait, Safety, Therapeutic Exercise, Transfers Treatment Duration: Jul 15, 2022 Frequency: 6 times per week Estimated Hrs Per Day: .25 hour per day Patient and/or Family Agrees t: Yes Time/GCodes Time In: 0900 Time Out: 924 Total Billed Treatment Time: 25 Total Billed Treatment visit, NM 10 min, FA 15 min MARTHA YEUNG PT Jul 05, 2022 09:26
--- NOTE | 2022-07-05 09:45 | Cardiology Progress Note ---
Subjective Date Seen by Provider: Jul 05, 2022 Time Seen by Provider: 09:42 Subjective/Events-last exam Patient was seen at bedside, laying down comfortably, tired. Wound is covered Review of Systems General: No Chills, No Night Sweats; Fatigue, Malaise; No Appetite, No Other HEENT: No Head Aches, No Visual Changes, No Eye Pain, No Ear Pain, No Dysphasia, No Sinus Congestion, No Post Nasal Drip, No Sore Throat, No Other Pulmonary: No Dyspnea, No Cough, No Pleuritic Chest Pain, No Other Cardiovascular: No: Chest Pain, Palpitations, Orthopnea, Paroxysmal Noc. Dyspnea, Edema, Lt Headedness, Other Objective-Cardiology Exam Last Set of Vital Signs Vital Signs 07/05/22 07/05/22 07/05/22 00:00 08:00 08:40 Temp 38.3 Pulse 86 Resp 26 B/P (MAP) 135/58 (83) O2 Delivery Room Air O2 Flow Rate 1.00 I&O Intake and Output 07/05/22 00:00 Intake Total 2100 ml Output Total 2700 ml Balance -600 ml Intake Oral 1100 ml IV Total 1000 ml Output Urine Total 2700 ml General: Alert, Oriented X3, Cooperative, No Acute Distress HEENT: Atraumatic, PERRLA Neck: Supple, No JVD Lungs: Clear to Auscultation, Normal Air Movement Heart: Regular Rate, Normal S1, Normal S2, No Murmurs Abdomen: Normal Bowel Sounds, Soft, No Tenderness, No Hepatosplenomegaly, No Masses Extremities: No Clubbing, No Cyanosis, No Edema, Normal Pulses, No Tenderness/Swelling Skin: No Rashes, No Breakdown, No Significant Lesion Neuro: Normal Gait, Normal Speech, Strength at 5/5 X4 Ext, Normal Tone, Sensation Intact Psych/Mental Status: Mental Status NL, Mood NL Results Lab Laboratory Tests 07/05/22 05:25 A/P-Cardiology Admission Diagnosis Critical limb ischemia Gangrene Peripheral arterial disease Hypertension Hyperlipidemia Assessment/Plan Ischemic gangrene of the right toe. Nonhealing ulcer. Peripheral angiogram was done on July 03, 2022 with balloon angioplasty to the right SFA, right tibioperoneal trunk and right posterior tibial artery. Patient has palpable posterior tibial pulse. The anterior tibial artery is occluded and not reconstructed. No intervention was done on it. Status post amputation of the right second toe done by Dr. Dahl on July 04, 2022 Recovering well. Anemia, patient started with baseline anemia and he had a drop in his hemoglobin after the procedure secondary to IV hydration. Continue to monitor H&H. Does not require transfusion at this point. Status post recent CVA, was transferred [facility] to [facility] in [place]. I will try to obtain copy of the hospital records Gangrene, leukocytosis. Receiving cephalexin and clindamycin. Hyperlipidemia, maintained on Lipitor 80 mg daily Hypertension, monitor blood pressure Diabetes mellitus, followed and managed by primary care physician Twelve-lead EKG showed sinus rhythm with low voltage, nonspecific T wave abnormality History of tobaccoism in the remote past. BRITTANY CARRERO MD Jul 05, 2022 09:45
[2022-07-05] MEDS ORDERED: VANCOMYCIN INJECTION 0.1 MG in NS (IVPB) 250 ML IV SCH (10:15)
[2022-07-05] MEDS ORDERED: MEROPENEM 1,000 MG in NS (IVPB) 100 ML IV SCH (10:15)
--- NOTE | 2022-07-05 11:04 | Diagnostic Imaging Report ---
CLINICAL INDICATION: Patient with wheezing. EXAM: Portable chest x-ray, upright view. COMPARISON: Chest x-ray dated 07/03/2022. FINDINGS: Lungs/pleura: There is interval blunting of the left costophrenic angle region and a small left pleural effusion and/or mild atelectasis versus infiltrate may be present. Otherwise, the lungs are clear. There is no pneumothorax. Mediastinum: Unremarkable. Pulmonary vasculature: Unremarkable. Heart: Unremarkable. Bones/extrathoracic soft tissue: There are degenerative spurs involving the spine. IMPRESSION: There is interval blunting of the left costophrenic angle region which may represent a small left pleural effusion and/or mild atelectasis versus infiltrate. Dictated by: Dictated on workstation # [id number]
[2022-07-05] MEDS: LACTATED RINGERS 1,000 ML IV SCH (11:23)
[2022-07-05] MEDS: MEROPENEM 500 MG/NS 100 ML IVPB IV SCH ×4 (11:24→18:24)
--- NOTE | 2022-07-05 11:38 | Progress Note - Hospitalist ---
JUJU TAMAYO 07/05/22 1138: Subjective HPI/CC On Admission Date Seen by Provider: Jul 05, 2022 Time Seen by Provider: 10:00 CC: Right second toe gangrene HPI: This is a [facility] pt who is known to wound care and Dr. Dahl. He is undergoing a right second toe amputation after vascular intervention of the right leg to facilitate healing by Dr. Fu. White count is down from 24 to 16. He is having the amputation done. He will be monitored closely in the meantime. Subjective/Events-last exam 71 M day 2 s/p rt 2nd toe amputation is very lethargic minimally conversing and weak today with wound covered by dressings. Reports no pain, fever, N/V, or chest pain. Pt suspected of becoming septic with increase in WBC, temp, procal, and elevated liver enzymes. Wound cultures ID staph aureus and enterococcus species. DC current abx and Broad spectrum abx were started. PO2 this morning was 88 on room air, O2 started now in low 90s. BMs reported as normal and garza cath still in place. PT/OT continued Review of Systems General: Fatigue, Malaise HEENT: No Head Aches Pulmonary: Dyspnea; No Cough Cardiovascular: No: Chest Pain, Palpitations, Edema Gastrointestinal: No: Nausea, Vomiting, Abdominal Pain Genitourinary: No Dysuria, No Incontinence Musculoskeletal: back pain Neurological: Weakness, Other (very lethargic) Focused Exam Lactate Level 07/05/22 10:42: Lactic Acid Level 1.42 Lactic Acid Level Laboratory Tests Test 07/05/22 10:42 Lactic Acid Level 1.42 MMOL/L (0.50-2.00) Objective Exam Vital Signs Vital Signs Date Time Temp Pulse Resp B/P (MAP) Pulse Ox O2 Delivery O2 Flow Rate FiO2 07/05/22 08:40 Room Air 07/05/22 08:00 86 26 135/58 (83) 1.00 07/05/22 07:00 88 07/05/22 00:00 38.3 Capillary Refill : Less Than 3 Seconds General Appearance: Moderate Distress Neck: Normal Inspection, Non Tender, Supple Respiratory: Chest Non Tender, No Accessory Muscle Use, No Respiratory Distress, Crackles, Rhonci, Wheezing Cardiovascular: Regular Rate, Rhythm, No Edema, No Gallop, No Murmur Gastrointestinal: Normal Bowel Sounds, No Pulsatile Mass, Non Tender, Soft Back: Normal Inspection Extremity: Non Tender, No Calf Tenderness, No Pedal Edema; No Inflammation; Other (Rt ft covered by dressing) Neurologic/Psychiatric: No Alert, No Oriented x3; Other (obtunded) Skin: Warm/Dry, Pallor (LE BL) Results/Procedures Lab Laboratory Tests 07/05/22 05:25 Patient resulted labs reviewed. Assessment/Plan Assessment and Plan Assess & Plan/Chief Complaint Start on IV vanc and meripenem start lipitor 80mg chest x-ray continue IV fluids serum lactate Blood cultures continue HTN meds supplemental O2 PT POC glucose monitor closely f/u on micro susceptibility KALLIE VARGAS DO 07/05/22 2018: Subjective Subjective/Events-last exam Pt is very sleepy right now Procalcitionin is 0.32 He does have evidence of infection Will check chest x-ray since he does have coarse breath sounds Perform blood cultures x2 Initiate Meropenem and Vancomycin broad spectrum antibiotics Pain is pretty well controlled Assessment/Plan Assessment and Plan Assess & Plan/Chief Complaint IV antibiotics Move to fourth floor DC compliance monitor Supervisory-Addendum Brief Verification & Attestation Participated in pt care: history, MDM, physical Personally performed: exam, history, MDM, supervision of care Care discussed with: Medical Student Procedures: n/a Results interpretation: Verified all documentation Verification and Attestation of Medical Student E/M Service A medical student performed and documented this service in my presence. I reviewed and verified all information documented by the medical student and made modifications to such information, when appropriate. I personally performed the physical exam and medical decision making. Kallie Vargas Jul 05, 2022,20:18 JUJU TAMAYO Jul 05, 2022 11:38 KALLIE VARGAS DO Jul 05, 2022 20:18
[2022-07-05] MEDS ORDERED: VANCOMYCIN 1500 MG/NS 500 ML IVPB IV NR ×2 (12:00)
[2022-07-05] MEDS ORDERED: HYPOCHLOROUS ACID/NaCl (VASHE) 250 ML IR PRN (14:45)
[2022-07-05] MEDS ORDERED: DEXTROSE 50% 50 ML (IMS) SYR ONE (16:26)
--- NOTE | 2022-07-05 16:55 | Wound Care Assessment ---
Wound Care Assessment Date Seen by Provider: Jul 05, 2022 Time Seen by Provider: 16:50 Chief Complaint Ischemic R. 2 toe with gangrene HPI This 71 year old gentleman presented to my office recently with an ischemic R. 2 toe with dry gangrene. He has dementia and is a poor historian but his aides in history. She notes that he had a stroke in May and several weeks prior to the stroke she noted color change to the toe. Upon evaluation, he was found to have abnormal segmental studies with early osteomyelitis of the digit. He was taken for revascularization per Dr. Fu and subsequent amputation per Dr. Dahl. He is currently on broad spectrum antibiotics due to elevated WBC on admission and initial cellulitis of foot. His WBC is improved from admit. His wound healing will be complicated by PAD, DM2 (poor control with A1C of 9.4 in early June), CKD stage 4, vitamin D deficiency, and PEM. On exam today, his wo und bed is pale with no bleeding. There is a ducky discoloration to mid-foot on plantar surface that is concerning in light of his questionable vascular status. Currently he is being dressed with iodoform gauze packing strip and cleansed with vashe. Past Medical History: Admits Diabetes Type II CVA, CKD stage 4, recurrent falls, vitamin D deficiency, PEM, dementia Smoking Status: Former Smoker Recreational Drug Use: No Alcohol Use: Denies Use Review of Systems Other systems Patient with hypoglycemic episode. Being treated currently by nursing staff. No ROS due to mental status Exam Vital Signs Date Time Temp Pulse Resp B/P (MAP) Pulse Ox O2 Delivery O2 Flow Rate FiO2 07/05/22 13:23 92 07/05/22 12:00 29 156/80 (105) 96 07/05/22 08:40 Room Air 07/05/22 08:00 1.00 07/05/22 00:00 38.3 Capillary Refill : Less Than 3 Seconds General Appearance: WD/WN, moderate distress (hypoglycemic spell), obese Cardiovascular: no edema Respiratory: no respiratory distress, no accessory muscle use Extremities: no pedal edema Neurologic/Psychiatric: disoriented x 3 Skin: warm/dry, cyanosis (to plantar surface of foot) Wound assessment: See measurements from wound care nurse assessment. The Epithelialization is none, There is no tunneling or undermining. Drainage is small and serous. Granulation is none. Necrotic is none. Margins show epibole. There is an area of dusky discoloration to the plantar surface extending from wound margin to mid-foot Results Laboratory Tests 07/04/22 17:08: Glucometer 156H 07/04/22 20:27: Glucometer 104 07/05/22 05:25: White Blood Count 18.1H, Red Blood Count 2.76L, Hemoglobin 7.9L, Hematocrit 24L, Mean Corpuscular Volume 88, Mean Corpuscular Hemoglobin 29, Mean Corpuscular Hemoglobin Concent 33, Red Cell Distribution Width 13.9, Platelet Count 583H, Mean Platelet Volume 9.3, Immature Granulocyte % (Auto) 1, Neutrophils (%) (Auto) 74, Lymphocytes (%) (Auto) 14, Monocytes (%) (Auto) 10, Eosinophils (%) (Auto) 1, Basophils (%) (Auto) 0, Neutrophils # (Auto) 13.4H, Lymphocytes # (Auto) 2.6, Monocytes # (Auto) 1.8H, Eosinophils # (Auto) 0.2, Basophils # (Auto) 0.1, Immature Granulocyte # (Auto) 0.1, Neutrophils % (Manual) 78, Lymphocytes % (Manual) 18, Monocytes % (Manual) 2, Eosinophils % (Manual) 1, Band Neutrophils 1, Platelet Estimate CONSISTENT W COUNT, Anisocytosis SLIGHT, Sodium Level 134L, Potassium Level 5.0, Chloride Level 102, Carbon Dioxide Level 20L, Anion Gap 12, Blood Urea Nitrogen 18, Creatinine 1.62H, Estimat Glomerular Filtration Rate 45, BUN/Creatinine Ratio 11, Glucose Level 125H, Calcium Level 9.2, Corrected Calcium 10.2H, Total Bilirubin 0.5, Aspartate Amino Transf (AST/SGOT) 52H, Alanine Aminotransferase (ALT/SGPT) 35, Alkaline Phosphatase 411H, Total Protein 7.6, Albumin 2.8L, Procalcitonin 0.32H 07/05/22 10:42: Lactic Acid Level 1.42 07/05/22 12:58: Glucometer 80 07/05/22 16:20: Glucometer 29*L 07/05/22 16:22: Glucometer 25*L 07/05/22 16:38: Glucometer 162H Microbiology 07/04/22 Gram Stain - Final, Resulted 07/04/22 Anaerobic Culture, Resulted Pending 07/04/22 Surgical Culture - Preliminary, Resulted Probable Enterococcus Species Probable Staph Aureus 07/04/22 Fungal Culture 1 - Preliminary, Resulted 07/03/22 MRSA Screen - Final, Complete MRSA not isolated Microbiology 07/04/22 Gram Stain - Final, Resulted 07/04/22 Anaerobic Culture, Resulted Pending 07/04/22 Surgical Culture - Preliminary, Resulted Probable Enterococcus Species Probable Staph Aureus 07/04/22 Fungal Culture 1 - Preliminary, Resulted 07/04/22 Gram Stain - Final, Resulted 07/04/22 Anaerobic Culture, Resulted Pending 07/04/22 Surgical Culture - Preliminary, Resulted Probable Enterococcus Species Probable Staph Aureus 07/04/22 Fungal Culture 1 - Preliminary, Resulted 07/04/22 Gram Stain - Final, Resulted 07/04/22 Anaerobic Culture, Resulted Pending 07/04/22 Surgical Culture - Preliminary, Resulted Probable Enterococcus Species Probable Staph Aureus 07/04/22 Fungal Culture 1 - Preliminary, Resulted Assessment/Plan/Dx Assessment: 1. Dry gangrene of R. 2 toe s/p amputation 2. PAD 3. DM2 with poor control 4. CKD stage 4 5. PEM 6. Osteomyelitis s/p amputation, cellulitis Plan: 1. Concern for continued vascular compromise. Will need close monitoring. Cleanse daily with Vashe and dress with iodoform packing strip daily. May need to switch to more moist dressing if found to be too dry (vashe wtd or xeroform). 2. As above. Monitor closely. Consider nitor patches to foot 3. Tight glycemic control necessary. Currently with hypoglycemic spell 4. Improved on latest labs 5. Protein supplementation 6. Broad spectrum antibiotics as currently ordered are appropriate. ADELE ESPARZA MD Jul 05, 2022 16:55
[2022-07-06 00:36] VITALS: BP 146/82
[2022-07-06 02:45] VITALS: BP 136/61
[2022-07-06] MEDS: MEROPENEM 500 MG/NS 100 ML IVPB IV SCH ×4 (02:47→10:36)
[2022-07-06 05:11] LABS: BASOPHILS # (AUTO) 0.1 10^3/uL (0.0-0.1); BASOPHILS % (AUTO) 0 % (0-10); EOSINOPHILS # (AUTO) 0.2 10^3/uL (0.0-0.3); EOSINOPHILS % (AUTO) 1 % (0-10); HEMATOCRIT 23 % (40-54); HEMOGLOBIN 7.5 g/dL (13.3-17.7); LYMPHOCYTES % (AUTO) 17 % (12-44); MEAN CORPUSCULAR HEMOGLOBIN 28 pg (25-34); MEAN CORPUSCULAR HGB CONC 32 g/dL (32-36); MEAN CORPUSCULAR VOLUME 88 fL (80-99); MEAN PLATELET VOLUME 9.2 fL (9.0-12.2); MONOCYTES # (AUTO) 1.6 10^3/uL (0.0-1.0); MONOCYTES % (AUTO) 9 % (0-12); NEUTROPHILS % (AUTO) 72 % (42-75); PLATELET COUNT 547 10^3/uL (130-400)
[2022-07-06 05:21] LABS: ALBUMIN 2.5 GM/DL (3.2-4.5); POTASSIUM 4.3 MMOL/L (3.6-5.0)
[2022-07-06 05:23] LABS: CALCIUM 8.8 MG/DL (8.5-10.1)
[2022-07-06 05:26] LABS: BILIRUBIN,TOTAL 0.4 MG/DL (0.1-1.0)
[2022-07-06 05:27] LABS: CREATININE SERUM 1.37 MG/DL (0.60-1.30)
[2022-07-06] MEDS ORDERED: DEXTROSE 50% 50 ML (IMS) SYR ONE (05:35)
[2022-07-06] MEDS: NS IV 1000 ML 1,000 ML IV SCH (05:38)
[2022-07-06] MEDS: VENlafaxine 75 MG (EFFEXOR) TAB PO SCH (05:38)
[2022-07-06] MEDS: LEVOTHYROXINE 125 MCG (LEVOTHROID) TABLET PO SCH (05:38)
[2022-07-06] MEDS: METOCLOPRAMIDE 10 MG (REGLAN) TAB PO SCH ×2 (05:38→12:21)
[2022-07-06] MEDS ORDERED: DEXTROSE 50% 50 ML (IMS) SYR IV ONE (05:45)
[2022-07-06] MEDS: inSUlin ASPART (NovoLOG) 1 UNIT/0.01 ML (CHARGE PER UNIT) SC SCH ×2 (06:34→10:45)
[2022-07-06 08:00] VITALS: BP 166/72
--- NOTE | 2022-07-06 08:09 | Cardiology Progress Note ---
Subjective Date Seen by Provider: Jul 06, 2022 Time Seen by Provider: 08:08 Subjective/Events-last exam Patient was seen at bedside, laying down comfortably, feeling better. Review of Systems General: No Chills, No Night Sweats, No Fatigue, No Malaise, No Appetite, No Other HEENT: No Head Aches, No Visual Changes, No Eye Pain, No Ear Pain, No Dysphasia, No Sinus Congestion, No Post Nasal Drip, No Sore Throat, No Other Pulmonary: No Dyspnea, No Cough, No Pleuritic Chest Pain, No Other Cardiovascular: No: Chest Pain, Palpitations, Orthopnea, Paroxysmal Noc. Dyspnea, Edema, Lt Headedness, Other Focused Exam Lactate Level 07/05/22 10:42: Lactic Acid Level 1.42 Objective-Cardiology Exam Last Set of Vital Signs Vital Signs 07/05/22 07/06/22 07/06/22 16:00 02:45 03:00 Temp 37.1 Pulse 78 Resp 23 B/P (MAP) 136/61 (86) Pulse Ox 94 O2 Delivery Room Air O2 Flow Rate 1.00 I&O Intake and Output 07/06/22 00:00 Intake Total 3215 ml Output Total 3225 ml Balance -10 ml Intake Oral 500 ml IV Total 2715 ml Output Urine Total 3225 ml General: Alert, Oriented X3, Cooperative, No Acute Distress HEENT: Atraumatic, PERRLA Neck: Supple, No JVD Lungs: Clear to Auscultation, Normal Air Movement Heart: Regular Rate, Normal S1, Normal S2, No Murmurs Abdomen: Normal Bowel Sounds, Soft, No Tenderness, No Hepatosplenomegaly, No Masses Extremities: No Clubbing, No Cyanosis, No Tenderness/Swelling, Other (Diminished pulse, left foot is covered) Skin: No Rashes, No Breakdown, No Significant Lesion Neuro: Normal Gait, Normal Speech, Strength at 5/5 X4 Ext, Normal Tone, Sensation Intact Psych/Mental Status: Mental Status NL, Mood NL Results Lab Laboratory Tests 07/06/22 05:02 A/P-Cardiology Admission Diagnosis Critical limb ischemia Gangrene Peripheral arterial disease Hypertension Hyperlipidemia Assessment/Plan Ischemic gangrene of the right toe. Nonhealing ulcer. Peripheral angiogram was done on July 03, 2022 with balloon angioplasty to the right SFA, right tibioperoneal trunk and right posterior tibial artery. The anterior tibial artery is occluded and not reconstructed. No intervention was done on it. Status post amputation of the right second toe done by Dr. Dahl on July 04, 2022 I was able to Doppler the posterior tibial artery today on July 06, 2022 Anemia, patient started with baseline anemia and he had a drop in his hemoglobin after the procedure secondary to IV hydration. Continue to monitor H&H. Does not require transfusion at this point. Status post recent CVA, was transferred from [facility] to [facility] in [place]. I will try to obtain copy of the hospital records Gangrene, leukocytosis. Receiving cephalexin and clindamycin. Hyperlipidemia, maintained on Lipitor 80 mg daily Hypertension, monitor blood pressure Diabetes mellitus, followed and managed by primary care physician Twelve-lead EKG showed sinus rhythm with low voltage, nonspecific T wave abnormality History of tobaccoism in the remote past. BRITTANY CARRERO MD Jul 06, 2022 08:09
--- NOTE | 2022-07-06 09:53 | Physical Therapy Daily Note ---
PT Daily Note-Current Subjective Patient alert and agreeable to participate with PT. Spouse present. Mental Status Patient Orientation: Person, Time, Situation Attachments: Gaffney Catheter, IV Transfers SCALE: Activities may be completed with or without assistive devices. 4-Rlisplakhg-yddjlel completes the activity by him/herself with no assistance from a helper. 5-Set-up or Clean-up Assistance-helper sets up or cleans up; patient completes activity. [place] assists only prior to or following the activity. 4-Supervision or Touching Assistance-helper provides verbal cues and/or touching/steadying and/or contact guard assistance as patient completes activity. Assistance may be provided throughout the activity or intermittently. 3-Partial/Moderate Assistance-helper does LESS THAN HALF the effort. [place] lifts, holds or supports trunk or limbs, but provides less than half the effort. 2-Substantial/Maximal Assistance-helper does MORE THAN HALF the effort. [place] lifts or holds trunk or limbs and provides more than half the effort. 1-Jatjvophe-jvdgds does ALL the effort. Patient does none of the effort to complete the activity. Or, the assistance of 2 or more helpers is required for the patient to complete the activity. If activity was not attempted, code reason: 7-Patient Refused. 9-Not Applicable-not attempted and the patient did not perform the activity before the current illness, exacerbation or injury. 10-Not Attempted due to Environmental Limitations-(lack of equipment, weather restraints, etc.). 88-Not Attempted due to Medical Conditions or Safety Concerns. Lying to Sitting/Side of Bed(Q: 3 Sit to Stand (QC): 3 Chair/Gbd-lc-Funla Xfer(QC): 3 Toilet Transfer (QC): 3 patient incontinent BM requiring dependent assist to cleanse. Weight Bearing Right Lower Extremity: Right Partial Weight Bearing Left Lower Extremity: Left Full Weight Bearing unable to comply with PWB right LE with surgical shoe in place Gait Training Distance: 15' Walk 10 feet (QC): 3 Gait Assistive Device: FWW noted left lean with sit to stand and with ambulate with ability to self correct. Assessment Patient continues to state he wants to go home. Patient improved on this date. Spouse and patient highly motivated with progress. PT Sample Display Preparer Goals Half-Way Goals PT Sample Display Preparer Goals Time Frame: Jul 15, 2022 Roll Left & Right (QC): 4 Sit to Lying (QC): 4 Lying-Sitting on Side/Bed(QC): 4 Sit to Stand (QC): 4 Chair/Wmx-dy-Ydkqx Xfer(QC): 4 Toilet Transfer (QC): 4 Walk 10 feet (QC): 4 Walk 50ft with 2 Turns (QC): 4 PT Plan Treatment/Plan Treatment Plan: Continue Plan of Care Treatment Plan: Bed Mobility, Education, Functional Activity Pola, Functional Strength, Gait, Safety, Therapeutic Exercise, Transfers Treatment Duration: Jul 15, 2022 Frequency: 6 times per week Estimated Hrs Per Day: .25 hour per day Patient and/or Family Agrees t: Yes Time/GCodes Time In: 802 Time Out: 826 Total Billed Treatment Time: 24 Total Billed Treatment 1 visit FA x 2 24 min AUGUSTUS HOOPER PT Jul 06, 2022 09:53
[2022-07-06] MEDS: MIRABEGRON 25 MG TAB (MYRBETRIQ) PO SCH (10:30)
[2022-07-06] MEDS: SENNA W/DOCUSATE (SENOKOT S) TABLET PO SCH (10:30)
[2022-07-06] MEDS: LOSARTAN 100 MG (COZAAR) TABLET PO SCH (10:30)
[2022-07-06] MEDS: amLODIPine 5 MG (NORVASC) TAB PO SCH (10:30)
[2022-07-06] MEDS: polyethylene glycoL POWDER 17 GM (MIRALAX) PACK PO SCH (10:30)
[2022-07-06] MEDS: ASPIRIN E.C. 81 MG (ECOTRIN) TAB PO SCH (10:30)
[2022-07-06] MEDS: CLOPIDOGREL 75 MG (PLAVIX) TABLET PO SCH (10:30)
[2022-07-06] MEDS ORDERED: LINE600T12 PO (11:49)
[2022-07-06] MEDS ORDERED: MTC10T PO (11:49)
[2022-07-06] MEDS ORDERED: CEFD300C3 PO (11:49)
[2022-07-06] MEDS ORDERED: AMLO-250 PO (11:49)
[2022-07-06] MEDS ORDERED: LOSA100T57 PO (11:49)
[2022-07-06] MEDS ORDERED: SENN1TAB76 PO (11:49)
[2022-07-06] MEDS ORDERED: ACHD5005 PO (11:49)
[2022-07-06] MEDS ORDERED: VNL75T PO (11:49)
[2022-07-06] MEDS ORDERED: INSU100I14 SQ (11:49)
[2022-07-06] MEDS ORDERED: INSU200I4 SC (11:49)
--- NOTE | 2022-07-06 11:51 | Discharge Summary ---
Discharge Summary Hospital Course Was the Problem List Reviewed?: Yes Problems/Dx: (1) Gangrene of toe of right foot (2) Dementia (3) Diabetes mellitus, type 2 Status: Chronic Hospital Course Date of Admission: Jul 04, 2022 at 13:00 Admission Diagnosis : Family Physician/Provider: Vinh Paulino MD Date of Discharge: 07/06/22 Discharge Diagnosis: Assessment: Right 2nd toe amputation by DR Dahl due to gangrene DM HTN HLP s/p intervention right PVD Dr Fu Hospital Course: 71 M w/ hx of CVA, HTN, HLD, DM, and critical limb ischemia was admitted for a rt 2nd toe amputation secondary to gangrene on 07/03/2022. Procedure was successful and pt was taken to cardiac step down for medical mgmt and continued on pre-op abx, sliding scale insulin, and anti-coag therapy. On day 2 pt had a elevated WBC, procal, body temp, and 88 PO2 on room air with coarse lung sonds. Cultures id pathogen and pt was started on braod spectrum abx, supplemental O2, IV fluids, garza cath, chest x-ray ws obtained. On day 3 pt was recovering well stating no SOB, pain, fever, and decreased crackles in lung izquierdo. Garza was taken out and pt/ot was started. Pt to dc today 07/06/2022 to home with home health and continued out pt abx and O2 therapy. JUJU TAMAYO Jul 06, 2022 14:19 Labs and Pending Lab Test: Laboratory Tests 07/05/22 12:58: Glucometer 80 07/05/22 16:20: Glucometer 29*L 07/05/22 16:22: Glucometer 25*L 07/05/22 16:38: Glucometer 162H 07/05/22 17:01: Glucometer 122H 07/05/22 18:08: Glucometer 106 07/05/22 19:18: Glucometer 100 07/05/22 20:52: Glucometer 82 07/06/22 00:52: Glucometer 62L 07/06/22 01:27: Glucometer 159H 07/06/22 05:02: White Blood Count 18.0H, Red Blood Count 2.65L, Hemoglobin 7.5L, Hematocrit 23L, Mean Corpuscular Volume 88, Mean Corpuscular Hemoglobin 28, Mean Corpuscular Hemoglobin Concent 32, Red Cell Distribution Width 13.7, Platelet Count 547H, Mean Platelet Volume 9.2, Immature Granulocyte % (Auto) 1, Neutrophils (%) (Auto) 72, Lymphocytes (%) (Auto) 17, Monocytes (%) (Auto) 9, Eosinophils (%) (Auto) 1, Basophils (%) (Auto) 0, Neutrophils # (Auto) 13.0H, Lymphocytes # (Auto) 3.0, Monocytes # (Auto) 1.6H, Eosinophils # (Auto) 0.2, Basophils # (Auto) 0.1, Immature Granulocyte # (Auto) 0.1, Sodium Level 139, Potassium Level 4.3, Chloride Level 103, Carbon Dioxide Level 21, Anion Gap 15H, Blood Urea Nitrogen 15, Creatinine 1.37H, Estimat Glomerular Filtration Rate 55, BUN/Creatinine Ratio 11, Glucose Level 57*L, Calcium Level 8.8, Corrected Calcium 10.0, Total Bilirubin 0.4, Aspartate Amino Transf (AST/SGOT) 52H, Alanine Aminotransferase (ALT/SGPT) 36, Alkaline Phosphatase 403H, Total Protein 7.0, Albumin 2.5L 07/06/22 06:30: Glucometer 105 07/06/22 10:44: Glucometer 128H Microbiology 07/04/22 Gram Stain - Final, Resulted 07/04/22 Anaerobic Culture, Resulted Pending 07/04/22 Surgical Culture - Preliminary, Resulted Probable Enterococcus Species Probable Staph Aureus 07/04/22 Fungal Culture 1 - Preliminary, Resulted 07/03/22 MRSA Screen - Final, Complete MRSA not isolated Home Meds Active Cefdinir 300 Mg Capsule 300 Mg PO BID Zyvox (Linezolid) 600 Mg Tablet 600 Mg PO BID Stool Softener-Laxative Tablet (Sennosides/Docusate Sodium) 8.6 Mg-50 Mg Tablet 2 Ea PO BID Losartan Potassium 100 Mg Tablet 100 Mg PO DAILY Amlodipine Besylate 5 Mg Tablet 5 Mg PO DAILY Novolog Flexpen (Insulin Aspart) 100 Unit/Ml (3 Ml) Solution 5 Units SQ TIDPC 14 Days Tresiba Flextouch U-200 (Insulin Degludec) 200 Unit/Ml (3 Ml) Insuln.pen 70 Units SC DAILY 7 Days Hydrocodone-Acetamin 5-325 mg (Hydrocodone/Acetaminophen) 5 Mg-325 Mg Tablet 1 Ea PO TID PRN Metoclopramide HCl 10 Mg Tablet 10 Mg PO QIDACHS 7 Days hold for 7 days until completed antibiotics Venlafaxine HCl 75 Mg Tab 75 Mg PO DAILY 7 Days hold for 7 days until completing antibiotics Reported Gvoke Hypopen (Glucagon) 1 Mg/0.2 Ml Auto.injct 1 Mg SQ DAILY PRN Clindamycin HCl 150 Mg Capsule 150 Mg PO QID FILLED 06-30-2022 #28/7 DAY SUPPLY Cephalexin 500 Mg Capsule 500 Mg PO TID FILLED 06-30-2022 #21/7 DAY SUPPLY Vitamin D3 (Cholecalciferol (Vitamin D3)) 1,250 Mcg (46643 Unit) Capsule 1,250 Mcg PO FRIDAYS Clopidogrel (Clopidogrel Bisulfate) 75 Mg Tablet 75 Mg PO DAILY Atorvastatin Calcium 80 Mg Tablet 80 Mg PO HS Aspirin EC (Aspirin) 81 Mg Tablet.dr 81 Mg PO DAILY Proair Hfa (Albuterol Sulfate) 1 Puff Puff 2 Puff IH Q4H PRN 1 PUFF = 90 MCG Levothyroxine Sodium 125 Mcg Tablet 125 Mcg PO DAILY Praluent Pen (Alirocumab) 75 Mg/Ml Pen.injctr 75 Mg INJ EVERY 2 WEEKS Myrbetriq (Mirabegron) 50 Mg Tab.er.24h 50 Mg PO DAILY Assessment/Pt Instructions PCP in 1 week Discharge Planning: <30 minutes discharge planning Discharge Physical Examination Vital Signs Vital Signs Date Time Temp Pulse Resp B/P (MAP) Pulse Ox O2 Delivery O2 Flow Rate FiO2 07/06/22 08:00 87 27 166/72 (103) 96 Room Air 07/06/22 02:45 37.1 07/05/22 16:00 1.00 General Appearance: No Apparent Distress, WD/WN, Chronically ill Respiratory: Lungs Clear, Normal Breath Sounds Cardiovascular: Regular Rate, Rhythm Neurologic/Psychiatric: Alert, Oriented x3, Disoriented Allergies: Coded Allergies: choline fenofibrate (Verified Allergy, Unknown, 12/07/17) gemfibrozil (Verified Allergy, Unknown, 12/07/17) niacin (Verified Allergy, Unknown, 12/07/17) pioglitazone (Verified Allergy, Unknown, 12/07/17) Discharge Summary Date of Admission Jul 04, 2022 at 13:00 Date of Discharge Discharge Date: Jul 06, 2022 Discharge Diagnosis IV antibiotics Move to fourth floor DC athletic monitor JOSE VARGAS DO Jul 06, 2022 11:51
--- NOTE | 2022-07-06 11:51 | D/C HH Face to Face Order ---
D/C Face to Face Orders Reconcile Patient Problems Problems Reviewed?: Yes Instructions for Patient Kiki Patient Instructions/FollowUp: PCP 1 week Physician to follow Patient: [facility] Discharge Diet for Home: ADA Diet Patient Problems: Toe amputation Patient Data-Allergies,Ht & Wt Patient Allergies: Coded Allergies: choline fenofibrate (Verified Allergy, Unknown, 12/07/17) gemfibrozil (Verified Allergy, Unknown, 12/07/17) niacin (Verified Allergy, Unknown, 12/07/17) pioglitazone (Verified Allergy, Unknown, 12/07/17) Height (Feet): 5 Height (Inches): 10.00 Weight (Pounds): 161 Weight (Ounces): 4.0 Home Health Need/Face to Face Date of Face to Face: Jul 06, 2022 Clinical Findings: Generalized weakness and fatigue, Instability, Muscle weakness, Wound infection, Non-healing wound I have seen Pt hcos-ha-ovnt: Yes Discharged To: Home Diagnosis/Conditions: toe amputation Patient is Homebound due to: CognItive deficits, Cipriano fall risk due to instabilty, Muscle weakness, Non-weight bearing Homebound Status Due to the above stated illness, injury or surgical procedure (medical condition or diagnosis) and associated clinical findings, the patient is homebound because of his/her inability to leave home except with aid of a supportive device and/or person AND leaving the home requires a considerable and taxing effort or is medically contraindicated. Pt req the following assistanc: Walker [facility] Health Nursing Orders Home Health Services Order: Nursing Services, Learning And Development Director-Evaluate & Treat, Physical Therapy-Evaluate & Treat, Wound Care-Eval/Treat Home Health Infusion Therapy Line Start Date: Jul 04, 2022 Certify Stmt I certify that this patient is under my care and that I, a nurse practitioner or a physician; a assistant maintenance manager working with me, had a face to face encounter that - meets the physician face to face encounter requirements with this patient as dated. JOSE VARGAS DO Jul 06, 2022 11:51
[2022-07-06] MEDS ORDERED: VANCOMYCIN 1250 MG/NS 250 ML IVPB IV SCH ×2 (12:00)
--- NOTE | 2022-07-06 14:19 | Progress Note ---
JUJU TAMAYO 07/06/22 1419: Progress Note 71 M w/ hx of CVA, HTN, HLD, DM, and critical limb ischemia was admitted for a rt 2nd toe amputation secondary to gangrene on 07/03/2022. Procedure was successful and pt was taken to cardiac step down for medical mgmt and continued on pre-op abx, sliding scale insulin, and anti-coag therapy. On day 2 pt had a elevated WBC, procal, body temp, and 88 PO2 on room air with coarse lung sonds. Cultures id pathogen and pt was started on braod spectrum abx, supplemental O2, IV fluids, garza cath, chest x-ray ws obtained. On day 3 pt was recovering well stating no SOB, pain, fever, and decreased crackles in lung izquierdo. Garza was taken out and pt/ot was started. Pt to dc today 07/06/2022 to home with home health and continued out pt abx and O2 therapy. KALLIE VARGAS DO 07/07/22 0541: Supervisory-Addendum Brief Verification & Attestation Participated in pt care: history, MDM, physical Personally performed: exam, history, MDM, supervision of care Care discussed with: Medical Student Procedures: n/a Results interpretation: Verified all documentation Verification and Attestation of Medical Student E/M Service A medical student performed and documented this service in my presence. I reviewed and verified all information documented by the medical student and made modifications to such information, when appropriate. I personally performed the physical exam and medical decision making. Kallie Vargas Jul 07, 2022,05:41 JUJU TAMAYO Jul 06, 2022 14:19 KALLIE VARGAS DO Jul 07, 2022 05:41
[2022-07-07] MEDS ORDERED: TROUGH ORDER-PHARMACY XX NR (11:00)
--- NOTE | 2022-07-11 10:58 | Physician Query Clarification ---
PQ-Uncertain Diagnosis Admission/Discharge Admission Date: Jul 04, 2022 at 13:00 Discharge Date: Jul 06, 2022 at 14:55 Dr. 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 Suspected of becoming septic was documented in the 07/05 PN with no further documentation in the medical record. Please document a response in Progress Note or Discharge Summary. 1. Yes, clinically valid, condition resolved. 2. No, condition ruled out. 3. Other, with explanation of clinical findings. 4. Undetermined, no explanation for clinical findings. PHYSICIAN RESPONSE Diagnosis clinically valid: Yes, Conditon resolved In responding to this query, please exercise your independent professional judgment. The purpose of this communication is to more accurately reflect the complexity of your patients condition. The fact that a question is asked does not imply that any particular answer is desired or expected. Thank you for your timely response to this clarification. Requestors name: Mimi THIS PHYSICIAN QUERY FORM IS A PERMANENT PART OF THE MEDICAL RECORD MIMI BOOKER Jul 11, 2022 10:58 JOSE JIANG DO Jul 11, 2022 20:11
== END 2022-07-06 14:55 | disposition home health service (06) | DRG 252 ==
LOC: CATH 10:00 → CSD 11:35 → CATH 07-04 13:00 → CSD 07-04 13:00
PROVIDERS: ADMIT Internal Medicine; ATTEND Internal Medicine
PROC: 047K3ZZ Dilation of Right Femoral Artery, Percutaneous Approach (ICD-10-PCS; 2022-07-03)
PROC: 047T3ZZ Dilation of Right Peroneal Artery, Percutaneous Approach (ICD-10-PCS; 2022-07-03)
PROC: 047R3ZZ Dilation of Right Posterior Tibial Artery, Percutaneous Approach (ICD-10-PCS; 2022-07-03)
PROC: B41F1ZZ Fluoroscopy of Right Lower Extremity Arteries using Low Osmolar Contrast (ICD-10-PCS; 2022-07-03)
PROC: B41G1ZZ Fluoroscopy of Left Lower Extremity Arteries using Low Osmolar Contrast (ICD-10-PCS; 2022-07-03)
PROC: 0Y6R0Z0 Detachment at Right 2nd Toe, Complete, Open Approach (ICD-10-PCS; principal; 2022-07-04 11:19)
DX: E11.52 Type 2 diabetes mellitus with diabetic peripheral angiopathy with gangrene (principal); A41.9 Sepsis, unspecified organism; L97.919 Non-pressure chronic ulcer of unspecified part of right lower leg with unspecified severity; L03.115 Cellulitis of right lower limb; I70.92 Chronic total occlusion of artery of the extremities; N18.4 Chronic kidney disease, stage 4 (severe); E46 Unspecified protein-calorie malnutrition; I70.261 Atherosclerosis of native arteries of extremities with gangrene, right leg; I70.222 Atherosclerosis of native arteries of extremities with rest pain, left leg; I70.239 Atherosclerosis of native arteries of right leg with ulceration of unspecified site; E11.40 Type 2 diabetes mellitus with diabetic neuropathy, unspecified; E11.65 Type 2 diabetes mellitus with hyperglycemia; Z79.4 Long term (current) use of insulin; I12.9 Hypertensive chronic kidney disease with stage 1 through stage 4 chronic kidney disease, or unspecified chronic kidney disease; E11.22 Type 2 diabetes mellitus with diabetic chronic kidney disease; Z68.25 Body mass index [BMI] 25.0-25.9, adult; G20 Parkinson's disease; F02.80 Dementia in other diseases classified elsewhere, unspecified severity, without behavioral disturbance, psychotic disturbance, mood disturbance, and anxiety; K21.9 Gastro-esophageal reflux disease without esophagitis; H54.3 Unqualified visual loss, both eyes; F41.9 Anxiety disorder, unspecified; F32.A Depression, unspecified; J44.9 Chronic obstructive pulmonary disease, unspecified; D64.9 Anemia, unspecified; E55.9 Vitamin D deficiency, unspecified; B95.61 Methicillin susceptible Staphylococcus aureus infection as the cause of diseases classified elsewhere; B95.2 Enterococcus as the cause of diseases classified elsewhere; Z87.891 Personal history of nicotine dependence; E78.00 Pure hypercholesterolemia, unspecified; Z86.73 Personal history of transient ischemic attack (TIA), and cerebral infarction without residual deficits; Z83.3 Family history of diabetes mellitus; Z82.49 Family history of ischemic heart disease and other diseases of the circulatory system; Z88.8 Allergy status to other drugs, medicaments and biological substances
CPT/HCPCS: 36248; 36415; 37222; 71045; 73620; 75716; 80048; 80053; 80061; 82947; 83605; 84145; 85007; 85025; 85027; 85610; 85730; 87040; 87070; 87075; 87076; 87077; 87081; 87101; 87186; 87205; 94760

== ENCOUNTER 2022-07-11 20:00 | Inpatient (IN) | payer MEDICARE ==
[~2022-07-11] VITALS: Ht 170.2 cm; Wt 80.1 kg
[~2022-07-11 20:00] MED LIST changes: +AMLO-250 PO; +ATOR80TA76 PO; +CEFD300C3 PO; +CEPH500C PO; +CHOL500049 PO; +CLIN150C20 PO; +CLOP75TA28 PO; +GLUC1AUT SQ; -HEParin (CATH LAB) 2,000 ML IV ONE; -LIDOCAINE 1% INJ 20 ML VIAL ONE; +LINE600T12 PO; +LOSA100T57 PO; -MIDAZOLAM 5 MG/5 ML (VERSED) VIAL ONE; -NS IV 1000 ML 1,000 ML ONE; -REGADENOSON 0.4 MG/5 ML SYR (LEXISCAN) IV ONE; +SENN1TAB76 PO; -fentaNYL INJ 100 MCG/2 ML AMP ONE
[2022-07-11] MEDS ORDERED: ONDANSETRON 4 MG/2 ML (SDV) Z0FRAN IVP ONE (20:30)
[2022-07-11] MEDS ORDERED: fentaNYL INJ 100 MCG/2 ML AMP IVP ONE (20:30)
[2022-07-11 20:32] LABS: EOSINOPHILS # (AUTO) 0.3 10^3/uL (0.0-0.3); EOSINOPHILS % (AUTO) 1 % (0-10); LYMPHOCYTES % (AUTO) 15 % (12-44); MEAN CORPUSCULAR VOLUME 88 fL (80-99); MEAN PLATELET VOLUME 9.3 fL (9.0-12.2)
[2022-07-11 20:33] LABS: BASOPHILS # (AUTO) 0.1 10^3/uL (0.0-0.1); BASOPHILS % (AUTO) 0 % (0-10); HEMATOCRIT 27 % (40-54); HEMOGLOBIN 8.4 g/dL (13.3-17.7); LYMPHOCYTES # (AUTO) 3.6 10^3/uL (1.0-4.0); MEAN CORPUSCULAR HEMOGLOBIN 28 pg (25-34); MEAN CORPUSCULAR HGB CONC 32 g/dL (32-36); MONOCYTES # (AUTO) 1.5 10^3/uL (0.0-1.0); MONOCYTES % (AUTO) 6 % (0-12); NEUTROPHILS # (AUTO) 18.1 10^3/uL (1.8-7.8); NEUTROPHILS % (AUTO) 76 % (42-75); WHITE BLOOD COUNT 23.7 10^3/uL (4.3-11.0)
[2022-07-11 20:35] LABS: PLATELET COUNT 1245 10^3/uL (130-400)
[2022-07-11 20:42] LABS: INR 1.1 (0.8-1.4); PROTHROMBIN TIME PATIENT 14.8 SEC (12.2-14.7)
--- NOTE | 2022-07-11 20:43 | ED General ---
General Chief Complaint: Abdominal/GI Problems Stated Complaint: ABDOMINAL PAIN Nursing Triage Note: PT VERBALIZED HAS HAD A HEADACHE, NAUSEA AND ABDOMINAL PAIN X1 WEEK. STATES DIZZINESS WHEN HE STANDS. PATIENT ARRIVED VIA EMS FROM HOME. Source of Information: Patient Exam Limitations: Other (Dementia) (KINGA LEE A MED STUDENT) History of Present Illness Date Seen by Provider: Jul 11, 2022 Time Seen by Provider: 20:30 Initial Comments Jah Ventura is a 71 yo male brought in by EMS from home for N/V and abdominal pain for the last week. 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 Pt is alert and oriented only to self and is a poor historian. He reports he has had abdominal pain for the last week with associated N/V. Denies hematemesis. States he has been unable to keep down food or liquids and is unsure of the last time he ate. Pt reports he thinks he had a BM 6 hours ago. Of note, pt reports he feels he is ready for retirement place ment as he cannot take care of himself at home any longer. 2199 update: Pt's arrived and states she is primary caregiver. She states she left the home this evening and the pt was feeling fine with no complaints. At baseline, pt is disoriented d/t Alzheimers. Since d/c from hospital she reports pt has been complaining of nausea, but he has not vomited. He has had decreased appetite, but adequate fluid intake and urine output. He is incontinent of urine at times. She reports pt has not had BM since d/c from Rehab on 07/06/22 and he is on a stool softener. He takes hydrocodone once per week for pain. She also states he was discharged on 4 medications that were picked up from [facility] and they told pt to hold stop antidepressant while on abx. She states she is interested in retirement placement for pt as she has trouble taking care of him at home. She is interested in [facility] Rehab. She states pt desires to be DNR/DNI. Pt's Hgb was 8.4. WBC was 23.7. Plt 1245. RLE doppler revealed decreased blood flow in pedal pulse. Bladder scan revealed 678mL. Garza placed. Na 133, Potassium 5.4, BUN 23, Cr 1.51, Calcium 10.3, AST 42 and ALP 426, PT 14.8, PTT 46. CT showed T12 compression deformity with complete vertebral body height loss and 3 mm retropulsion. This is present since at least May 12, 2022, Nonobstructing punctate renal stones bilaterally without ureteral stone or hydronephrosis. 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 (KINGA LEE MED STUDENT) Allergies and Home Medications Allergies Coded Allergies: choline fenofibrate (Verified Allergy, Unknown, 12/07/17) gemfibrozil (Verified Allergy, Unknown, 12/07/17) niacin (Verified Allergy, Unknown, 12/07/17) pioglitazone (Verified Allergy, Unknown, 12/07/17) Patient Home Medication List Home Medication List Reviewed: Yes (CHARLIE MARKS MD) Albuterol Sulfate (Proair Hfa) 1 Puff Puff, 2 PUFF IH Q4H PRN for SHORTNESS OF BREATH, (Reported) Entered as Reported by: ANEESH CORREA on 05/12/221620 Last Action: Reviewed Alirocumab (Praluent Pen) 75 Mg/Ml Pen.injctr, 75 MG INJ EVERY 2 WEEKS, (Reported) Entered as Reported by: ANEESH CORREA on 05/12/221620 Last Action: Reviewed Amlodipine Besylate (Amlodipine Besylate) 5 Mg Tablet, 5 MG PO DAILY, (Reported) Entered as Reported by: ANEESH CORREA on 07/12/22 100 Last Action: Continued Aspirin (Aspirin EC) 81 Mg Tablet.dr, 81 MG PO DAILY, (Reported) Entered as Reported by: ANEESH CORREA on 05/12/22 162 Last Action: Reviewed Atorvastatin Calcium (Atorvastatin Calcium) 80 Mg Tablet, 80 MG PO HS, (Reported) Entered as Reported by: EVELINA ANNE on 07/03/22 1002 Last Action: Continued Cefdinir (Cefdinir) 300 Mg Capsule, 300 MG PO BID, (Reported) Entered as Reported by: ANEESH CORREA on 07/12/22 1009 Last Action: Reviewed Cholecalciferol (Vitamin D3) (Vitamin D3) 1,250 Mcg (23563 Unit) Capsule, 1,250 MCG PO FRIDAYS, (Reported) Entered as Reported by: EVELINA ANNE on 07/03/221001 Last Action: Reviewed Clopidogrel Bisulfate (Clopidogrel) 75 Mg Tablet, 75 MG PO DAILY, (Reported) Entered as Reported by: EVELINA ANNE on 07/03/221001 Last Action: Reviewed Colesevelam HCl (Welchol) 625 Mg Tablet, 625 MG PO TID PRN for DIARRHEA, (Reported) Entered as Reported by: ANEESH CORREA on 07/12/221008 Last Action: Reviewed Hydrocodone/Acetaminophen (Hydrocodone-Acetamin 5-325 mg) 5 Mg-325 Mg Tablet, 1 TAB PO Q8H PRN for PAIN-MODERATE (5-7), (Reported) Entered as Reported by: ANEESH CORREA on 07/12/221008 Last Action: Continued Insulin Aspart (Novolog Flexpen) 100 Unit/Ml (3 Ml) Solution, 5 UNITS SQ TIDPC, (Reported) Entered as Reported by: ANEESH CORREA on 07/12/221008 Last Action: Reviewed Insulin Degludec (Tresiba Flextouch U-200) 200 Unit/Ml (3 Ml) Insuln.pen, 72 UNIT SQ DAILY PRN for BLOOD SUGAR OVER 300, (Reported) Entered as Reported by: ANEESH CORREA on 07/12/221008 Last Action: Reviewed Levothyroxine Sodium (Levothyroxine Sodium) 125 Mcg Tablet, 125 MCG PO DAILY, (Reported) Entered as Reported by: ANEESH CORREA on 05/12/22 1621 Last Action: Continued Linezolid (Zyvox) 600 Mg Tablet, 600 MG PO BID, (Reported) Entered as Reported by: ANEESH CORREA on 07/12/221008 Last Action: Reviewed Losartan Potassium (Losartan Potassium) 100 Mg Tablet, 100 MG PO DAILY, (Reported) Entered as Reported by: ANEESH CORREA on 07/12/221008 Last Action: Reviewed Metoclopramide HCl (Reglan) 10 Mg Tablet, 10 MG PO QIDACHS PRN for NAUSEA/VOMITING-3RD LINE, (Reported) Entered as Reported by: ANEESH CORREA on 07/12/221008 Last Action: Reviewed Mirabegron (Myrbetriq) 50 Mg Tab.er.24h, 50 MG PO DAILY, (Reported) Entered as Reported by: ANEESH CORREA on 05/12/22 1621 Last Action: Converted Omeprazole (Omeprazole) 20 Mg Capsule.dr, 20 MG PO HS PRN for HEARTBURN, (Reported) Entered as Reported by: ANEESH CORREA on 07/12/22 100 Last Action: Reviewed Sennosides/Docusate Sodium (Senna S Tablet) 8.6 Mg-50 Mg Tablet, 2 EACH PO BID PRN for CONSTIPATION-6TH LINE, (Reported) Entered as Reported by: ANEESH CORREA on 07/12/22 100 Last Action: Continued Venlafaxine HCl (Venlafaxine HCl) 75 Mg Tab, 75 MG PO DAILY Prescribed by: JOSE VARGAS on 07/06/22 114 Last Action: Reviewed Discontinued Medications Amlodipine Besylate (Amlodipine Besylate) 5 Mg Tablet, 5 MG PO DAILY Discontinued Reason: Duplicate Order Prescribed by: JOSE VARGAS on 07/06/22 114 Last Action: Discontinued Cefdinir (Cefdinir) 300 Mg Capsule, 300 MG PO BID Discontinued Reason: Duplicate Order Prescribed by: JOSE VARGAS on 07/06/221148 Last Action: Discontinued Glucagon (Gvoke Hypopen) 1 Mg/0.2 Ml Auto.injct, 1 MG SQ DAILY PRN for HYPOGLYCEMIA, (Reported) Discontinued Reason: Duplicate Order Entered as Reported by: EVELINA ANNE on 07/03/22 1014 Last Action: Discontinued Hydrocodone/Acetaminophen (Hydrocodone-Acetamin 5-325 mg) 5 Mg-325 Mg Tablet, 1 EA PO TID PRN for PAIN-MODERATE (5-7) Discontinued Reason: Duplicate Order Prescribed by: JOSE VARGAS on 07/06/221148 Last Action: Discontinued Insulin Aspart (Novolog Flexpen) 100 Unit/Ml (3 Ml) Solution, 5 UNITS SQ TIDPC Discontinued Reason: Duplicate Order Prescribed by: JOSE VARGAS on 07/06/221148 Last Action: Discontinued Insulin Degludec (Tresiba Flextouch U-200) 200 Unit/Ml (3 Ml) Insuln.pen, 70 UNITS SC DAILY Discontinued Reason: Duplicate Order Prescribed by: JOSE VARGAS on 07/06/221148 Last Action: Discontinued Linezolid (Zyvox) 600 Mg Tablet, 600 MG PO BID Discontinued Reason: Duplicate Order Prescribed by: JOSE VARGAS on 07/06/221148 Last Action: Discontinued Losartan Potassium (Losartan Potassium) 100 Mg Tablet, 100 MG PO DAILY Discontinued Reason: Duplicate Order Prescribed by: JOSE VARGAS on 07/06/221148 Last Action: Discontinued Metoclopramide HCl (Metoclopramide HCl) 10 Mg Tablet, 10 MG PO QIDACHS Discontinued Reason: Duplicate Order Prescribed by: JOSE VARGAS on 07/06/221148 Last Action: Discontinued Sennosides/Docusate Sodium (Stool Softener-Laxative Tablet) 8.6 Mg-50 Mg Tablet, 2 EA PO BID Discontinued Reason: Duplicate Order Prescribed by: JOSE VARGAS on 07/06/221148 Last Action: Discontinued Review of Systems Review of Systems Constitutional: No chills, No fever EENTM: throat pain; No blurred vision Respiratory: cough; No hemoptysis; short of breath Cardiovascular: No chest pain Gastrointestinal: abdominal pain (diffuse); No constipation, No diarrhea, No hematemesis, No melena; nausea, vomiting Genitourinary: no symptoms reported Musculoskeletal: no symptoms reported Skin: no symptoms reported Psychiatric/Neurological: No Symptoms Reported Hematologic/Lymphatic: No Symptoms Reported Immunological/Allergic: no symptoms reported (KINGA LEE ChannelMeter STUDENT) Past Aufwegl-Bxtvyy-Wazfiu Hx Patient Social History Substance use?: No Alcohol Use?: No (KINGA LEE Channel[employer] STUDENT) Immunizations Up To Date Tetanus Booster (TDap): More than 5yrs PED Vaccines UTD: No First/Initial COVID19 Vaccinat: NO Second COVID19 Vaccination Ben: NO Third COVID19 Vaccination Date: NO (KINGA LEE ChannelMeter STUDENT) Seasonal Allergies Seasonal Allergies: Yes (KINGA LEE ChannelM[employer] STUDENT) Past Medical History Surgery/Hospitalization HX: HTN, CO. DIABETES Surgeries: Yes (hemmorhoids removed, CATARACTS, WRIST FX) Orthopedic Respiratory: Yes Pneumonia, Sleep Apnea, COPD Currently Using CPAP: No Cardiac: Yes High Cholesterol, Hypertension Neurological: Yes Dementia, Neuropathy, Parkinson's Disease Reproductive Disorders: No Sexually Transmitted Disease: No HIV/AIDS: No Genitourinary: No Gastrointestinal: Yes Gastroesophageal Reflux, Chronic Constipation, Hemorrhoids, Chronic Diarrhea, Irritable Bowel Musculoskeletal: Yes Arthritis, Chronic Back Pain, Fractures Endocrine: Yes (Type II) Diabetes, 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 Hearing Impairment: Denies Cancer: No Psychosocial: Yes Anxiety, Depression Integumentary: No Blood Disorders: No Adverse Reaction/Blood Tranf: No (N/A) (KINGA LEE MED STUDENT) Family Medical History Alcoholism G8 BROTHER G8 BROTHER Alzheimer's disease 19 MOTHER Arthritis 19 FATHER 19 MOTHER Asthma 19 FATHER Cataracts 19 FATHER 19 MOTHER G8 BROTHER G8 BROTHER G8 SISTER G8 SISTER G8 SISTER Completed stroke 19 FATHER G8 SISTER Deafness or hearing loss G8 BROTHER Diabetes mellitus 19 FATHER 19 MOTHER G8 BROTHER G8 BROTHER G8 BROTHER G8 SISTER G8 SISTER G8 SISTER Hypertension 19 FATHER 19 MOTHER G8 BROTHER G8 BROTHER G8 BROTHER G8 BROTHER G8 SISTER G8 SISTER G8 SISTER G8 SISTER G8 SISTER G8 SISTER G8 SISTER Respiratory disorder G8 BROTHER No Family History of: AIDS Abdominal aortic aneurysm Britton's disease Aphasia Cancer of mouth Cardiovascular disease Colon cancer Congenital disease Congenital heart disease Coronary thrombosis Cystic fibrosis Dementia Drug abuse Dysphasia Fibrocystic disease of breast Gastroenteritis Glaucoma Headache disorder Hypercholesterolemia Infertility Kidney disease Myocardial infarction Neoplasm Not obtainable due to adoption Osteoporosis Parkinson's disease Prostate cancer Psychosocial problem Seizure disorder Severe allergy Thyroid disease Tuberculosis Visual disorder Hypertension (KINGA LEE MED STUDENT) Physical Exam Vital Signs Vital Signs - First Documented 07/11/22 20:00 Temp 36.7 Pulse 87 Resp 18 B/P (MAP) 174/80 (111) Pulse Ox 95 O2 Delivery Room Air (CHARLIE MARKS MD) Vital Signs Capillary Refill : Less Than 3 Seconds (KINGA LEE MED STUDENT) Height, Weight, BMI Height: 5'10.00" Weight: 161lbs. 4.0oz. 73.873133ig; 26.00 BMI Method:Stated General Appearance: No Apparent Distress, Chronically ill HEENT: PERRL/EOMI Neck: Full Range of Motion, Tender Lateral (submandibular tenderness) Respiratory: Chest Non Tender, Lungs Clear, Normal Breath Sounds, No Accessory Muscle Use, No Respiratory Distress Cardiovascular: Regular Rate, Rhythm, No Murmur Gastrointestinal: Abnormal Bowel Sounds (high pitched bowel sounds on left side of abdomen), Distended, Tenderness (diffuse) Extremity: Non Tender, No Calf Tenderness, No Pedal Edema, Slow Capillary Refill, Other (RLE 2nd digit amputation with surrounding erythema dusky appearance) Neurologic/Psychiatric: Alert, Depressed Affect, Disoriented (oriented to self only) Skin: Other (dusky appearance to plantar aspect of RLE 3rd digit extending into metatarsal region of foot) (KINGA LEE A MED STUDENT) Skin: Other (dusky appearance to plantar aspect of RLE 3rd digit extending into metatarsal region of foot; he has necrotic discoloration at the base of the second third and fourth toe with erythema extending to the posterior plantar surface. Surgical wound appears clean. Packing was in place. No purulent drainage, no foul smell. No significant erythema over the dorsum of the foot suggestive of cellulitis) (CHARLIE MARKS MD) Progress/Results/Core Measures Suspected Sepsis SIRS Temperature: Pulse: 87 Respiratory Rate: 18 Laboratory Tests 07/11/22 20:00: White Blood Count 23.7H Blood Pressure 174 /80 Mean: 111 Laboratory Tests 07/11/22 20:00: Creatinine 1.51H, INR Comment 1.1, Platelet Count 1245*H, Total Bilirubin 0.3 (KINGA LEE A MED STUDENT) Results/Orders Lab Results Laboratory Tests Test 07/11/22 20:00 07/11/22 20:58 Range/Units White Blood Count 23.7 H 4.3-11.0 10^3/uL Red Blood Count 3.01 L 4.30-5.52 10^6/uL Hemoglobin 8.4 L 13.3-17.7 g/dL Hematocrit 27 L 40-54 % Mean Corpuscular Volume 88 80-99 fL Mean Corpuscular Hemoglobin 28 25-34 pg Mean Corpuscular Hemoglobin Concent 32 32-36 g/dL Red Cell Distribution Width 13.8 10.0-14.5 % Platelet Count 1245 *H 130-400 10^3/uL Mean Platelet Volume 9.3 9.0-12.2 fL Immature Granulocyte % (Auto) 1 % Neutrophils (%) (Auto) 76 H 42-75 % Lymphocytes (%) (Auto) 15 12-44 % Monocytes (%) (Auto) 6 0-12 % Eosinophils (%) (Auto) 1 0-10 % Basophils (%) (Auto) 0 0-10 % Neutrophils # (Auto) 18.1 H 1.8-7.8 10^3/uL Lymphocytes # (Auto) 3.6 1.0-4.0 10^3/uL Monocytes # (Auto) 1.5 H 0.0-1.0 10^3/uL Eosinophils # (Auto) 0.3 0.0-0.3 10^3/uL Basophils # (Auto) 0.1 0.0-0.1 10^3/uL Immature Granulocyte # (Auto) 0.2 H 0.0-0.1 10^3/uL Neutrophils % (Manual) 82 % Lymphocytes % (Manual) 7 % Monocytes % (Manual) 7 % Eosinophils % (Manual) 4 % Percent Immature Platelet Fraction 1.4 0.0-7.6 % Polychromasia SLIGHT Anisocytosis MODERATE Prothrombin Time 14.8 H 12.2-14.7 SEC INR Comment 1.1 0.8-1.4 Activated Partial Thromboplast Time 46 H 24-35 SEC Sodium Level 133 L 135-145 MMOL/L Potassium Level 5.4 H 3.6-5.0 MMOL/L Chloride Level 95 L 98-107 MMOL/L Carbon Dioxide Level 25 21-32 MMOL/L Anion Gap 13 5-14 MMOL/L Blood Urea Nitrogen 23 H 7-18 MG/DL Creatinine 1.51 H 0.60-1.30 MG/DL Estimat Glomerular Filtration Rate 49 BUN/Creatinine Ratio 15 Glucose Level 244 H 70-105 MG/DL Calcium Level 9.7 8.5-10.1 MG/DL Corrected Calcium 10.3 H 8.5-10.1 MG/DL Total Bilirubin 0.3 0.1-1.0 MG/DL Aspartate Amino Transf (AST/SGOT) 42 H 5-34 U/L Alanine Aminotransferase (ALT/SGPT) 37 0-55 U/L Alkaline Phosphatase 426 H 40-136 U/L Total Protein 9.4 H 6.4-8.2 GM/DL Albumin 3.2 3.2-4.5 GM/DL Urine Color YELLOW Urine Clarity CLEAR Urine pH 6.5 5-9 Urine Specific [place] 1.015 L 1.016-1.022 Urine Protein 2+ H NEGATIVE Urine Glucose (UA) TRACE H NEGATIVE Urine Ketones NEGATIVE NEGATIVE Urine Nitrite NEGATIVE NEGATIVE Urine Bilirubin NEGATIVE NEGATIVE Urine Urobilinogen 0.2 < = 1.0 MG/DL Urine Leukocyte Esterase NEGATIVE NEGATIVE Urine RBC (Auto) NEGATIVE NEGATIVE Urine RBC 0-2 /HPF Urine WBC NONE /HPF Urine Squamous Epithelial Cells NONE /HPF Urine Renal Epithelial Cells NONE /HPF Urine Crystals NONE /LPF Urine Bacteria NEGATIVE /HPF Urine Casts NONE /LPF Urine Mucus NEGATIVE /LPF Urine Culture Indicated NO (CHARLIE MARKS MD) My Orders Orders - CHARLIE MARKS MD Ed Iv/Invasive Line Start (07/11/22 20:24) Cbc With Automated Diff (07/11/22 20:24) Comprehensive Metabolic Panel (07/11/22 20:24) Bladder Scan (07/11/22 20:24) Protime With Inr (07/11/22 20:24) Partial Thromboplastin Time (07/11/22 20:24) Fentanyl Inj (Sublimaze Injection) (07/11/22 20:30) Ondansetron Injection (Zofran Injectio (07/11/22 20:30) Manual Differential (07/11/22 20:00) Ct Abdomen/Pelvis Wo (07/11/22 21:24) Catheter(Urinary) Insert & Ass 03,15 (07/11/22 22:18) Ua Culture If Indicated (07/11/22 22:18) (CHARLIE MARKS MD) Medications Given in ED (CHARLIE MARKS MD) Vital Signs/I&O 07/11/22 20:00 Temp 36.7 Pulse 87 Resp 18 B/P (MAP) 174/80 (111) Pulse Ox 95 O2 Delivery Room Air (CHARLIE MARKS MD) Vital Signs/I&O Capillary Refill : Less Than 3 Seconds (KINGA LEE MED STUDENT) Blood Pressure Mean: 111 Progress Note : Time: 20:08 Progress Note Pt's Hgb was 8.4. WBC was 23.7. Plt 1245. RLE doppler revealed decreased blood flow in pedal pulse. Bladder scan revealed 678mL. Plan to place garza catheter. COVID, Influenza, chem panel, coags pending. BP 174/80. Pt given zofran for nausea and fentanyl for pain management. (KINGA LEE MED STUDENT) Progress Note : Time: 23:14 Progress Note Patient seen and examined by me, 71-year-old with a chief complaint of abdominal pain recently status post angioplasty to the arteries of the right lower ex tremity as well as amputation of the right second toe. Discharged 5 days ago. Work-up remarkable for a leukocytosis of 23,000 as well as a thrombocytosis of greater than 1000. He had a CT abdomen and pelvis which was unremarkable. He is feeling better currently. He has chronic neuropathy in both feet and denies pain. He does have dusky pale discoloration of the toes of the right foot with decreased temperature. Unable to palpate dorsalis pedis pulse but the posterior tibial is dopplerable. I did discuss the case with Dr. Solo. Will admit him with Nitropaste on the right foot continued blood thinners, arterial ultrasound in the morning with a consult to Dr. Fu. indicated to the med student, Allyssa, that she is considering retirement placement. Both the patient and the are made aware of the plan of care and are agreeable. All questions are sought and answered (CHARLIE MARKS MD) Diagnostic Imaging Diagonstic Imaging: CT Comments [facility], [place] NAME: JAH VENTURA [facility] REC#: [id number] PT STATUS: REG ER : 1950 PHYSICIAN: CHARLIE MARKS MD ADMIT DATE: 07/11/22/ER Draft Date of Exam:07/11/22 CT ABDOMEN/PELVIS WO PROCEDURE: CT abdomen and pelvis without contrast. TECHNIQUE: Multiple contiguous axial images were obtained through the abdomen and pelvis without the use of intravenous contrast. Auto Exposure Controls were utilized during the CT exam to meet ALARA standards for radiation dose reduction. DATE: July 11, 2022. COMPARISON: CT abdomen and pelvis December 02, 2021. MRI lumbar spine May 12, 2022. INDICATION: 71-year-old male, abdominal pain. Nausea. FINDINGS: There are predominantly linear opacities in the lung bases most compatible with atelectasis. The heart is not enlarged. There is no pericardial effusion. There is mild bilateral gynecomastia. The liver is unremarkable in size and contour. The gallbladder is surgically absent. There is no intrahepatic or extrahepatic bile duct dilation. The main pancreatic duct is not grossly dilated. Limited noncontrast assessment of the pancreatic parenchyma is unremarkable. The spleen is not enlarged. There is an accessory splenule on axial image 46. The adrenal glands or unremarkable. There are nonobstructing right renal stones measuring approximately 1 to 2 mm in size. There are also nonobstructing left renal stones measuring 1 to 2 mm in size. There is bilateral nonspecific perinephric stranding. 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 The urinary collecting systems are not distended. There is no identified ureteral stone. There is a Garza catheter within the collapsed urinary bladder which is otherwise not well evaluated. The intestinal tract is not distended. There is no free intraperitoneal air. There is no drainable fluid collection. There are atherosclerotic calcifications. There is nonspecific stranding of the left inguinal region without identified focal fluid collection. There is no identified abnormally enlarged lymph node in the abdomen or pelvis which meets CT size criteria for adenopathy. The bones appear potentially demineralized. There is a remote appearing right anterior rib deformity. There is a compression deformity of T12 with complete vertebral body height loss and retropulsion measuring approximately 3 mm. IMPRESSION: 1. T12 compression deformity with complete vertebral body height loss and 3 mm retropulsion. This is present since at least May 12, 2022. 2. Nonobstructing punctate renal stones bilaterally without ureteral stone or hydronephrosis. 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 3. No identified acute abnormality in the abdomen or pelvis. Dictated on workstation # [id number] Dict: 07/11/222225 Trans: 07/11/222235 [facility] [id number] Interpreted by: FARIDA RAYMOND MD Electronically signed by: (CHARLIE MARKS MD) Departure Communication (Admissions) Time/Spoke to Admitting Phy: 23:[address] Solo (CHARLIE MARKS MD) Impression Primary Impression: Abdominal pain Qualified Codes: R10.84 - Generalized abdominal pain Additional Impressions: PVD (peripheral vascular disease) ischemic right toes Thrombocytosis, unspecified Disposition: ADMITTED INPATIENT Condition: Stable Admissions Decision to Admit Reason: Admit from ER (General) Decision to Admit/Date: Jul 11, 2022 Time/Decision to Admit Time: 23:17 (CHARLIE MARKS MD) Departure-Patient Inst. Referrals: REINALDO HASSAN MD (PCP/Family) Primary Care Physician Verification and Attestation of Medical Student E/M Service A medical student performed and documented this service in my presence. I reviewed and verified all information documented by the medical student and made modifications to such information, when appropriate. I personally performed the physical exam and medical decision making. Charlie Marks, Jul 11, 2022,23:17 (CHARLIE MARKS MD) KINGA LEE MED STUDENT Jul 11, 2022 20:43 CHARLIE MARKS MD Jul 11, 2022 23:01
[2022-07-11 20:49] LABS: ALBUMIN 3.2 GM/DL (3.2-4.5); BILIRUBIN,TOTAL 0.3 MG/DL (0.1-1.0); CALCIUM 9.7 MG/DL (8.5-10.1); CREATININE SERUM 1.51 MG/DL (0.60-1.30); POTASSIUM 5.4 MMOL/L (3.6-5.0); TOTAL PROTEIN 9.4 GM/DL (6.4-8.2)
[2022-07-11 20:57] LABS: ANISOCYTOSIS MODERATE; EOSINOPHILS % (MANUAL) 4 %; LYMPHOCYTES % (MANUAL) 7 %; MONOCYTES % (MANUAL) 7 %; NEUTROPHILS % (MANUAL) 82 %; POLYCHROMASIA SLIGHT
[2022-07-11 22:25] LABS: BILIRUBIN,URINE NEGATIVE (NEGATIVE); CLARITY,URINE CLEAR; COLOR,URINE YELLOW; GLUCOSE, URINE (UA) TRACE (NEGATIVE); KETONES,URINE NEGATIVE (NEGATIVE); LEUKOCYTE ESTERASE ,URINE NEGATIVE (NEGATIVE); NITRITE,URINE NEGATIVE (NEGATIVE); PH,URINE 6.5 (5-9); PROTEIN,URINE 2+ (NEGATIVE)
[2022-07-11 22:31] LABS: BACTERIA,URINE NEGATIVE /HPF; RBC,URINE 0-2 /HPF
--- NOTE | 2022-07-11 22:37 | Diagnostic Imaging Report ---
PROCEDURE: CT abdomen and pelvis without contrast. TECHNIQUE: Multiple contiguous axial images were obtained through the abdomen and pelvis without the use of intravenous contrast. Auto Exposure Controls were utilized during the CT exam to meet ALARA standards for radiation dose reduction. DATE: July 11, 2022. COMPARISON: CT abdomen and pelvis December 02, 2021. MRI lumbar spine May 12, 2022. INDICATION: 71-year-old male, abdominal pain. Nausea. FINDINGS: There are predominantly linear opacities in the lung bases most compatible with atelectasis. The heart is not enlarged. There is no pericardial effusion. There is mild bilateral gynecomastia. The liver is unremarkable in size and contour. The gallbladder is surgically absent. There is no intrahepatic or extrahepatic bile duct dilation. The main pancreatic duct is not grossly dilated. Limited noncontrast assessment of the pancreatic parenchyma is unremarkable. The spleen is not enlarged. There is an accessory splenule on axial image 46. The adrenal glands or unremarkable. There are nonobstructing right renal stones measuring approximately 1 to 2 mm in size. There are also nonobstructing left renal stones measuring 1 to 2 mm in size. There is bilateral nonspecific perinephric stranding. 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 The urinary collecting systems are not distended. There is no identified ureteral stone. There is a Gaffney catheter within the collapsed urinary bladder which is otherwise not well evaluated. The intestinal tract is not distended. There is no free intraperitoneal air. There is no drainable fluid collection. There are atherosclerotic calcifications. There is nonspecific stranding of the left inguinal region without identified focal fluid collection. There is no identified abnormally enlarged lymph node in the abdomen or pelvis which meets CT size criteria for adenopathy. The bones appear potentially demineralized. There is a remote appearing right anterior rib deformity. There is a compression deformity of T12 with complete vertebral body height loss and retropulsion measuring approximately 3 mm. IMPRESSION: 1. T12 compression deformity with complete vertebral body height loss and 3 mm retropulsion. This is present since at least May 12, 2022. 2. Nonobstructing punctate renal stones bilaterally without ureteral stone or hydronephrosis. 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 3. No identified acute abnormality in the abdomen or pelvis. Dictated by: Dictated on workstation # [id number]
[2022-07-11] MEDS ORDERED: NITROGLYCERIN 2% OINT 1 GM UNIT DOSE PACKET TOP ONE (23:30)
[2022-07-12] VITALS (7 sets, daily range): BP systolic 116–174; BP diastolic 55–80
[2022-07-12] MEDS ORDERED: RT-ALBUTEROL SULF 2.5 MG/3 ML PRE-MIX VIAL INH PRN (00:45)
[2022-07-12] MEDS: inSUlin ASPART (NovoLOG) 1 UNIT/0.01 ML (CHARGE PER UNIT) SC SCH ×4 (05:22→20:28)
[2022-07-12 05:25] LABS: BASOPHILS # (AUTO) 0.1 10^3/uL (0.0-0.1); BASOPHILS % (AUTO) 1 % (0-10); EOSINOPHILS # (AUTO) 0.3 10^3/uL (0.0-0.3); EOSINOPHILS % (AUTO) 2 % (0-10); HEMATOCRIT 23 % (40-54); HEMOGLOBIN 7.7 g/dL (13.3-17.7); LYMPHOCYTES # (AUTO) 3.9 10^3/uL (1.0-4.0); LYMPHOCYTES % (AUTO) 18 % (12-44); MEAN CORPUSCULAR HEMOGLOBIN 29 pg (25-34); MEAN CORPUSCULAR HGB CONC 33 g/dL (32-36); MEAN CORPUSCULAR VOLUME 87 fL (80-99); MEAN PLATELET VOLUME 9.4 fL (9.0-12.2); MONOCYTES # (AUTO) 1.4 10^3/uL (0.0-1.0); MONOCYTES % (AUTO) 6 % (0-12); NEUTROPHILS # (AUTO) 15.8 10^3/uL (1.8-7.8); NEUTROPHILS % (AUTO) 73 % (42-75); PLATELET COUNT 951 10^3/uL (130-400); WHITE BLOOD COUNT 21.7 10^3/uL (4.3-11.0)
[2022-07-12 05:43] LABS: CALCIUM 9.1 MG/DL (8.5-10.1)
[2022-07-12 05:47] LABS: CREATININE SERUM 1.37 MG/DL (0.60-1.30)
[2022-07-12 05:56] LABS: POTASSIUM 6.3 MMOL/L (3.6-5.0)
[2022-07-12] MEDS: NITROGLYCERIN 2% OINT 1 GM UNIT DOSE PACKET TOP SCH ×3 (06:25→17:34)
[2022-07-12] MEDS: CATHETER FLUSH 10 ML SYR IVP SCH ×3 (06:25→20:28)
--- NOTE | 2022-07-12 08:33 | Diagnostic Imaging Report ---
Right lower extremity arterial Doppler INDICATION: Decreased pulses Spectral color-flow imaging of the arterial system of the right lower extremity was performed. There are no prior studies available for comparison. There is atherosclerotic plaque throughout the arterial system the right lower extremity. There is fairly good arterial blood flow in the common femoral and superficial femoral arteries. However near the junction of the distal superficial femoral artery and the popliteal artery waveform changes from triphasic to biphasic and there is a decrease in the velocity in this region. I am concerned there is a hemodynamically significant stenosis in this region. There is also monophasic flow in the trifurcation arteries. IMPRESSION: The findings do suggest a hemodynamically significant stenosis near the junction of the distal superficial femoral artery and popliteal artery. If further imaging is desired, then CTA of the aorta with bilateral runoffs would be recommended. Dictated by: Dictated on workstation # [id number]
[2022-07-12] MEDS: ASPIRIN E.C. 81 MG (ECOTRIN) TAB PO SCH (08:36)
[2022-07-12] MEDS: CLOPIDOGREL 75 MG (PLAVIX) TABLET PO SCH (08:36)
[2022-07-12] MEDS ORDERED: SODIUM POLYSTYRENE POWDER 15 GM BOTTLE PO NR (09:00)
[2022-07-12] MEDS ORDERED: HYPOCHLOROUS ACID/NaCl (VASHE) 250 ML IR PRN (09:30)
[2022-07-12] MEDS ORDERED: HYPOCHLOROUS ACID/NaCl (VASHE) 250 ML IR SCH (09:30)
[2022-07-12] MEDS: ENOXAPARIN 40 MG/0.4 ML (LOVENOX) SYR SQ SCH (09:45)
--- NOTE | 2022-07-12 09:47 | Consultation-Cardiology ---
HPI-Cardiology Cardiology Consultation Date of Consultation 07/12/22 Date of Admission Time Seen by Provider: 09:00 Indication: PVD, nonhealing wound HPI Patient is a 71 y/o male with history of nonhealing wound to right foot, underwent peripheral angiogram with balloon angiopasty to right posterial tibial artery on 07/03/22, followed by toe amputations 07/04/22. Presented to the ER with complaints of nausea with generalized weakness and fatigue. Denies any chest pain or dyspnea. Noted to have nonhealing wound bed post amputation. Home Medications & Allergies Allergies: Coded Allergies: choline fenofibrate (Verified Allergy, Unknown, 12/07/17) gemfibrozil (Verified Allergy, Unknown, 12/07/17) niacin (Verified Allergy, Unknown, 12/07/17) pioglitazone (Verified Allergy, Unknown, 12/07/17) Home Medication List Reviewed: Yes IEL-Rdyvsl-Ideidj Hx Patient Social History Marital Status: Employed/Student: unemployed 2[employer] Hand Smoke Exposure: No Recent Hopitalizations: No Have you traveled recently?: No Alcohol Use?: No Immunizations Up To Date Tetanus Booster (TDap): More than 5yrs Date of Pneumonia Vaccine: Aug 21, 2016 Date of Influenza Vaccine: Aug 24, 2020 Past Medical History HTN HLP DM PVD Family Medical History Significant Family History: Hypertension Family History: Alcoholism G8 BROTHER G8 BROTHER Alzheimer's disease 19 MOTHER Arthritis 19 FATHER 19 MOTHER Asthma 19 FATHER Cataracts 19 FATHER 19 MOTHER G8 BROTHER G8 BROTHER G8 SISTER G8 SISTER G8 SISTER Completed stroke 19 FATHER G8 SISTER Deafness or hearing loss G8 BROTHER Diabetes mellitus 19 FATHER 19 MOTHER G8 BROTHER G8 BROTHER G8 BROTHER G8 SISTER G8 SISTER G8 SISTER Hypertension 19 FATHER 19 MOTHER G8 BROTHER G8 BROTHER G8 BROTHER G8 BROTHER G8 SISTER G8 SISTER G8 SISTER G8 SISTER G8 SISTER G8 SISTER G8 SISTER Respiratory disorder G8 BROTHER No Family History of: AIDS Abdominal aortic aneurysm [place]'s disease Aphasia Cancer of mouth Cardiovascular disease Colon cancer Congenital disease Congenital heart disease Coronary thrombosis Cystic fibrosis Dementia Drug abuse Dysphasia Fibrocystic disease of breast Gastroenteritis Glaucoma Headache disorder Hypercholesterolemia Infertility Kidney disease Myocardial infarction Neoplasm Not obtainable due to adoption Osteoporosis Parkinson's disease Prostate cancer Psychosocial problem Seizure disorder Severe allergy Thyroid disease Tuberculosis Visual disorder Review of Systems-General Review of Systems Constitutional: No chills, No fever; malaise, weakness EENTM: throat pain; No blurred vision Respiratory: cough; No hemoptysis; short of breath Cardiovascular: No chest pain Gastrointestinal: abdominal pain (diffuse); No constipation, No diarrhea, No hematemesis, No melena; nausea, vomiting Genitourinary: no symptoms reported Musculoskeletal: no symptoms reported Skin: no symptoms reported Psychiatric/Neurological: No Symptoms Reported Reviewed Test Results Reviewed Test Results Lab Laboratory Tests 07/11/22 20:00: White Blood Count 23.7H, Red Blood Count 3.01L, Hemoglobin 8.4L, Hematocrit 27L, Mean Corpuscular Volume 88, Mean Corpuscular Hemoglobin 28, Mean Corpuscular Hemoglobin Concent 32, Red Cell Distribution Width 13.8, Platelet Count 1245*H, Mean Platelet Volume 9.3, Immature Granulocyte % (Auto) 1, Neutrophils (%) (Auto) 76H, Lymphocytes (%) (Auto) 15, Monocytes (%) (Auto) 6, Eosinophils (%) (Auto) 1, Basophils (%) (Auto) 0, Neutrophils # (Auto) 18.1H, Lymphocytes # (Auto) 3.6, Monocytes # (Auto) 1.5H, Eosinophils # (Auto) 0.3, Basophils # (Auto) 0.1, Immature Granulocyte # (Auto) 0.2H, Neutrophils % (Manual) 82, Lymphocytes % (Manual) 7, Monocytes % (Manual) 7, Eosinophils % (Manual) 4, Percent Immature Platelet Fraction 1.4, Polychromasia SLIGHT, Anisocytosis MODERATE, Prothrombin Time 14.8H, INR Comment 1.1, Activated Partial Thromboplast Time 46H, Sodium Level 133L, Potassium Level 5.4H, Chloride Level 95L, Carbon Dioxide Level 25, Anion Gap 13, Blood Urea Nitrogen 23H, Creatinine 1.51H, Estimat Glomerular Filtration Rate 49, BUN/Creatinine Ratio 15, Glucose Level 244H, Calcium Level 9.7, Corrected Calcium 10.3H, Total Bilirubin 0.3, Aspartate Amino Transf (AST/SGOT) 42H, Alanine Aminotransferase (ALT/SGPT) 37, Alkaline Phosphatase 426H, Total Protein 9.4H, Albumin 3.2 07/11/22 20:58: Urine Color YELLOW, Urine Clarity CLEAR, Urine pH 6.5, Urine Specific [place] 1.015L, Urine Protein 2+H, Urine Glucose (UA) TRACEH, Urine Ketones NEGATIVE, Urine Nitrite NEGATIVE, Urine Bilirubin NEGATIVE, Urine Urobilinogen 0.2, Urine Leukocyte Esterase NEGATIVE, Urine RBC (Auto) NEGATIVE, Urine RBC 0-2, Urine WBC NONE, Urine Squamous Epithelial Cells NONE, Urine Renal Epithelial Cells NONE, Urine Crystals NONE, Urine Bacteria NEGATIVE, Urine Casts NONE, Urine Mucus NEGATIVE, Urine Culture Indicated NO 07/12/22 05:15: White Blood Count 21.7H, Red Blood Count 2.68L, Hemoglobin 7.7L, Hematocrit 23L, Mean Corpuscular Volume 87, Mean Corpuscular Hemoglobin 29, Mean Corpuscular Hemoglobin Concent 33, Red Cell Distribution Width 14.1, Platelet Count 951H, Mean Platelet Volume 9.4, Immature Granulocyte % (Auto) 1, Neutrophils (%) (Auto) 73, Lymphocytes (%) (Auto) 18, Monocytes (%) (Auto) 6, Eosinophils (%) (Auto) 2, Basophils (%) (Auto) 1, Neutrophils # (Auto) 15.8H, Lymphocytes # (Auto) 3.9, Monocytes # (Auto) 1.4H, Eosinophils # (Auto) 0.3, Basophils # (Auto) 0.1, Immature Granulocyte # (Auto) 0.2H, Sodium Level 132L, Potassium Level 6.3H, Chloride Level 99, Carbon Dioxide Level 21, Anion Gap 12, Blood Urea Nitrogen 20H, Creatinine 1.37H, Estimat Glomerular Filtration Rate 55, BUN/Creatinine Ratio 15, Glucose Level 120H, Calcium Level 9.1, Glucometer 126H Physical Exam Physical Exam Vital Signs Vital Signs - First Documented 07/11/22 07/12/22 20:00 00:27 Temp 36.7 Pulse 87 Resp 18 B/P (MAP) 174/80 (111) Pulse Ox 95 O2 Delivery Room Air FiO2 21 Capillary Refill : Less Than 3 Seconds Height, Weight, BMI Height: 5'10.00" Weight: 161lbs. 4.0oz. [id number]; 27.16 BMI Method:Stated General Appearance: No Apparent Distress, Chronically ill HEENT: PERRL/EOMI Neck: Full Range of Motion, Tender Lateral (submandibular tenderness) Respiratory: Chest Non Tender, Lungs Clear, Normal Breath Sounds, No Accessory Muscle Use, No Respiratory Distress Cardiovascular: Regular Rate, Rhythm, No Murmur Gastrointestinal: Abnormal Bowel Sounds (high pitched bowel sounds on left side of abdomen), Distended, Tenderness (diffuse) Extremity: Non Tender, No Calf Tenderness, No Pedal Edema, Slow Capillary Refill, Other (RLE 2nd digit amputation with surrounding erythema dusky appearance) Neurologic/Psychiatric: Alert, Depressed Affect, Disoriented (oriented to self only) Skin: Other (dusky appearance to plantar aspect of RLE 3rd digit extending into metatarsal region of foot; he has necrotic discoloration at the base of the second third and fourth toe with erythema extending to the posterior plantar surface. Surgical wound appears clean. Packing was in place. No purulent drainage, no foul smell. No significant erythema over the dorsum of the foot suggestive of cellulitis) A/P-Cardiology Admission Diagnosis PVD HTN HLP DM Assessment/Plan Peripheral vascular disease, Ischemic gangrene of the right toe. Nonhealing ulcer. Peripheral angiogram was done on July 03, 2022 with balloon angioplasty to the right SFA, right tibioperoneal trunk and right posterior tibial artery. The anterior tibial artery is occluded and not reconstructed. No intervention was done on it. Status post amputation of the right second toe done by Dr. Dahl on July 04, 2022 Continues to have slow healing to wound bed s/p amputation, will plan to repeat peripheral angiogram Status post recent CVA, was transferred from [facility] to [facility] in [place]. I will try to obtain copy of the hospital records Generalized malaise and weakness Hyperkalemia, was maintained on losartan as outpatient, I will d/c losartan at this time. Continue to monitor Hyperlipidemia, maintained on Lipitor 80 mg daily Hypertension, monitor blood pressure Diabetes mellitus, followed and managed by primary care physician Twelve-lead EKG showed sinus rhythm with low voltage, nonspecific T wave abnormality History of tobaccoism in the remote past. Thank you for allowing us to participate in the management of Mr. Ventura. This is Mone Coronado PA-C, as a scribe for Dr. Fu. Patient was seen and evaluated with Mone, patient has worsening ischemia on his foot, ultrasound results were reviewed I am planning to proceed with peripheral angiogram Discussed the management plan with Dr. Redd. Discontinue losartan due to hyperkalemia. MONE GALE Jul 12, 2022 09:47 BRITTANY FU MD Jul 12, 2022 16:49
--- NOTE | 2022-07-12 09:47 | Wound Care Assessment ---
Wound Care Assessment Date Seen by Provider: Jul 12, 2022 Time Seen by Provider: 08:30 Chief Complaint Post amputation wound HPI Jah is a 71yo M with a past medical history of diabetes mellitus, peripheral arterial disease, and amputation of R. 2 phalange. [facility] and diagnosed with gangrene of the second phalanx of the right foot. He had angioplasty performed in the right leg on 07/03/22 and an amputation of the phalanx was done 07/04/22. Outpatient MRI confirmed osteomyelitis of 2nd digit as well. Upon initial presentation for angioplasty he was found to have significantly elevated WBC. Bone culture was positive for MSSA, enterococcus and many anaerobes as well. With persistent elevation in WBC, I do think coverage for these organisms is reasonable. It appears he was discharged on cefdinir and linezolid. Anaerobic coverage would definitely be warranted as well. He does also have significant anemia (stable) as well as protein energy malnutrition. His most recent A1C was 9.4 as well. Jah did recently have a stroke and on initial presentation to office was noted to have blistering of digits on bilateral upper extremities as well. Upper extremity segmental studies as outpatient were normal and this is nearly resolved today. Clot showers vs. microvascular disease due to inflammatory process/vasospasm is a consideration. Follow up arteria doppler this stay with significant distal SFA stenosis. Dr. Fu has been consulted. He presented to the emergency department last night with a chief complaint of abdominal pain. He was admitted for leukocytosis and thrombocytosis. Patient was awake and resting in his bed during the interview. He is a very poor historian. He states he is not having any pain in his lower extremities. Denies neuropathy and weakness. Patient states his legs feel cold. Patient has been having his and home nurse change his dressings everyday at home. The dusky discoloration to his plantar foot is worse today with degloving of 3rd digit. I did deroof extensive bullae on plantar surface as well at beds jessica. 3rd digit with cyanotic changes and 4th digit with pallor today. Past Medical History: Admits Diabetes Type II, Admits Peripheral Artery Disease CVA, CKD stage 3, cognitive changes (vascular vs. alzheimer's dementia?) Smoking Status: Former Smoker Recreational Drug Use: No Alcohol Use: Denies Use Other Social Hx Lives with his at home Review of Systems General: No Fatigue; Appetite HEENT: No Head Aches, No Sinus Congestion, No Sore Throat Pulmonary: No Dyspnea, No Cough Cardiovascular: No: Chest Pain Gastrointestinal: No: Nausea, Vomiting, Abdominal Pain, Diarrhea, Constipation Genitourinary: No Dysuria, No Hematuria Musculoskeletal: No: back pain, hand pain, leg pain, foot pain Neurological: No: Weakness, Numbness Exam Vital Signs Date Time Temp Pulse Resp B/P (MAP) Pulse Ox O2 Delivery O2 Flow Rate FiO2 07/12/22 08:00 Room Air 07/12/22 07:56 36.6 85 18 145/67 (93) 92 07/12/22 00:27 21 Capillary Refill : Less Than 3 Seconds General Appearance: no apparent distress HEENT: PERRL/EOMI Neck: full range of motion, supple Cardiovascular: regular rate, rhythm, no edema, no JVD, no murmur Respiratory: chest non-tender, lungs clear, normal breath sounds, no respiratory distress, no accessory muscle use Gastrointestinal: normal bowel sounds, non tender, soft, no organomegaly Extremities: normal range of motion, slow capillary refill (Caprillary refill over 3 seconds in right foot) Neurologic/Psychiatric: alert, normal mood/affect, other (Patient not oriented to time or situation. Patient was unaware of why he was in the hospital.) Skin: cyanosis (R. 3 digit and plantar foot), cool (Right foot cool to touch), pallor (Fourth phalanx of right foot is pale), other (Dusky discoloration of the dorsal surface and third phalanx of the right foot ) Skin Problem Location: lower extremities Skin Character: bullous (bullae overlying plantar surface) Lymphatic: no adenopathy Patient's wound is located on the right foot where he had his second phalanx amputated. Wound measures 3.2cm x 1.7xcm x 1.1cm and there is tunneling at the 5 o'clock position. Small amount of clear drainage present. Granulation is none, necrotic tissue is large with slough and eschar, and epithelialization is none. The area of dusky discoloration has grown since last week and now extends further along the dorsum of the foot and the third phalanx. Results Laboratory Tests 07/11/22 20:00: White Blood Count 23.7H, Red Blood Count 3.01L, Hemoglobin 8.4L, Hematocrit 27L, Mean Corpuscular Volume 88, Mean Corpuscular Hemoglobin 28, Mean Corpuscular Hemoglobin Concent 32, Red Cell Distribution Width 13.8, Platelet Count 1245*H, Mean Platelet Volume 9.3, Immature Granulocyte % (Auto) 1, Neutrophils (%) (Auto) 76H, Lymphocytes (%) (Auto) 15, Monocytes (%) (Auto) 6, Eosinophils (%) (Auto) 1, Basophils (%) (Auto) 0, Neutrophils # (Auto) 18.1H, Lymphocytes # (Auto) 3.6, Monocytes # (Auto) 1.5H, Eosinophils # (Auto) 0.3, Basophils # (Auto) 0.1, Immature Granulocyte # (Auto) 0.2H, Neutrophils % (Manual) 82, Lymphocytes % (Manual) 7, Monocytes % (Manual) 7, Eosinophils % (Manual) 4, Percent Immature Platelet Fraction 1.4, Polychromasia SLIGHT, Anisocytosis MODERATE, Prothrombin Time 14.8H, INR Comment 1.1, Activated Partial Thromboplast Time 46H, Sodium Level 133L, Potassium Level 5.4H, Chloride Level 95L, Carbon Dioxide Level 25, Anion Gap 13, Blood Urea Nitrogen 23H, Creatinine 1.51H, Estimat Glomerular Filtration Rate 49, BUN/Creatinine Ratio 15, Glucose Level 244H, Calcium Level 9.7, Corrected Calcium 10.3H, Total Bilirubin 0.3, Aspartate Amino Transf (AST/SGOT) 42H, Alanine Aminotransferase (ALT/SGPT) 37, Alkaline Phosphatase 426H, Total Protein 9.4H, Albumin 3.2 07/11/22 20:58: Urine Color YELLOW, Urine Clarity CLEAR, Urine pH 6.5, Urine Specific [place] 1.015L, Urine Protein 2+H, Urine Glucose (UA) TRACEH, Urine Ketones NEGATIVE, Urine Nitrite NEGATIVE, Urine Bilirubin NEGATIVE, Urine Urobilinogen 0.2, Urine Leukocyte Esterase NEGATIVE, Urine RBC (Auto) NEGATIVE, Urine RBC 0-2, Urine WBC NONE, Urine Squamous Epithelial Cells NONE, Urine Renal Epithelial Cells NONE, Urine Crystals NONE, Urine Bacteria NEGATIVE, Urine Casts NONE, Urine Mucus NEGATIVE, Urine Culture Indicated NO 07/12/22 05:15: White Blood Count 21.7H, Red Blood Count 2.68L, Hemoglobin 7.7L, Hematocrit 23L, Mean Corpuscular Volume 87, Mean Corpuscular Hemoglobin 29, Mean Corpuscular Hemoglobin Concent 33, Red Cell Distribution Width 14.1, Platelet Count 951H, Mean Platelet Volume 9.4, Immature Granulocyte % (Auto) 1, Neutrophils (%) (Auto) 73, Lymphocytes (%) (Auto) 18, Monocytes (%) (Auto) 6, Eosinophils (%) (Auto) 2, Basophils (%) (Auto) 1, Neutrophils # (Auto) 15.8H, Lymphocytes # (Auto) 3.9, Monocytes # (Auto) 1.4H, Eosinophils # (Auto) 0.3, Basophils # (Auto) 0.1, Immature Granulocyte # (Auto) 0.2H, Sodium Level 132L, Potassium Level 6.3H, Chloride Level 99, Carbon Dioxide Level 21, Anion Gap 12, Blood Urea Nitrogen 20H, Creatinine 1.37H, Estimat Glomerular Filtration Rate 55, B UN/Creatinine Ratio 15, Glucose Level 120H, Calcium Level 9.1, Glucometer 126H Assessment/Plan/Dx Assessment: 1. Dry gangrene R. 2 digit s/p amputation 2. PAD 3. DM2 (poor control) 4. h/o CVA with gait instability 5. CKD stage 3 6. Leukocytosis with recent h/o osteomyelitis (s/p amputation) 7. Thrombocytosis 8. PEM 9. Vitamin D deficiency Plan: 1. Cleanse wound daily with Vashe. Xeroform was placed on his wound and then wrapped in gauze/roller gauze and secured with medipore tape. 2. Defer to Dr. Fu (possible repeat intervention planned. Continue topical nitroglycerin 3. Good glycemic control needed. Per primary team 4. Per primary team 5. Per primary team 6. Broad spectrum antibiotic coverage (including anaerobic coverage warranted) 7. Per primary team 9. Glucerna 10. Supplementation needed (as outpatient) ADELE ESPARZA MD Jul 12, 2022 09:47
[2022-07-12] MEDS ORDERED: METO-310 PO (10:09)
[2022-07-12] MEDS ORDERED: ACHD5005 PO (10:09)
[2022-07-12] MEDS ORDERED: INSU100I14 SQ (10:09)
[2022-07-12] MEDS ORDERED: OMEP20CA18 PO (10:09)
[2022-07-12] MEDS ORDERED: SENN-145 PO (10:09)
[2022-07-12] MEDS ORDERED: COLE625T9 PO (10:09)
[2022-07-12] MEDS ORDERED: LOSA100T57 PO (10:09)
[2022-07-12] MEDS ORDERED: AMLO-250 PO (10:09)
[2022-07-12] MEDS ORDERED: LINE600T12 PO (10:09)
[2022-07-12] MEDS ORDERED: CEFD300C3 PO (10:09)
[2022-07-12] MEDS ORDERED: INSU200I4 SQ (10:09)
[2022-07-12] MEDS: NS IV 1000 ML 1,000 ML IV SCH (10:57)
--- NOTE | 2022-07-12 12:17 | Consultation - Surgery ---
GURJIT BONILLA 07/12/22 1217: History of Present Illness History of Present Illness Patient Consulted On(juan/time) 07/12/22 12:11 Date Seen by Provider: Jul 12, 2022 Time Seen by Provider: 12:11 Reason for Visit: PVD, nonhealing wound History of Present Illness Consult requested by Dr. Solo. Patient is a 71 y/o M with history of PVD, HTN, HLD presenting with nonhealing wounds to the right foot after having 2nd right toe amputation 8 days ago. He is also s/p angioplasty to right lower extremity arteries. Patient's reports patient had been receiving wound care post op up until yesterday, when the patient's other toes on the right foot began having discoloration. She states the 4th toe was "black" in color at one point, it is now white. She also reports skin on the sole of the right foot began peeling off this morning. Patient denies any chest pain, shortness of breath, fever, or chills at this time. Allergies and Home Medications Allergies Coded Allergies: choline fenofibrate (Verified Allergy, Unknown, 12/07/17) gemfibrozil (Verified Allergy, Unknown, 12/07/17) niacin (Verified Allergy, Unknown, 12/07/17) pioglitazone (Verified Allergy, Unknown, 12/07/17) Patient Home Medication List Home Medication List Reviewed: Yes Albuterol Sulfate (Proair Hfa) 1 Puff Puff, 2 PUFF IH Q4H PRN for SHORTNESS OF BREATH, (Reported) Entered as Reported by: ANEESH CORERA on 05/12/221620 Last Action: Reviewed Alirocumab (Praluent Pen) 75 Mg/Ml Pen.injctr, 75 MG INJ EVERY 2 WEEKS, (Reported) Entered as Reported by: ANEESH CORREA on 05/12/221620 Last Action: Reviewed Amlodipine Besylate (Amlodipine Besylate) 5 Mg Tablet, 5 MG PO DAILY, (Reported) Entered as Reported by: ANEESH CORREA on 07/12/22 1009 Last Action: Continued Aspirin (Aspirin EC) 81 Mg Tablet.dr, 81 MG PO DAILY, (Reported) Entered as Reported by: ANEESH CORREA on 05/12/221620 Last Action: Reviewed Atorvastatin Calcium (Atorvastatin Calcium) 80 Mg Tablet, 80 MG PO HS, (Reported) Entered as Reported by: EVELINA ANNE on 07/03/221001 Last Action: Continued Cefdinir (Cefdinir) 300 Mg Capsule, 300 MG PO BID, (Reported) Entered as Reported by: ANEESH CORREA on 07/12/221008 Last Action: Reviewed Cholecalciferol (Vitamin D3) (Vitamin D3) 1,250 Mcg (25399 Unit) Capsule, 1,250 MCG PO FRIDAYS, (Reported) Entered as Reported by: EVELINA ANNE on 07/03/221001 Last Action: Reviewed Clopidogrel Bisulfate (Clopidogrel) 75 Mg Tablet, 75 MG PO DAILY, (Reported) Entered as Reported by: EVELINA ANNE on 07/03/221001 Last Action: Reviewed Colesevelam HCl (Welchol) 625 Mg Tablet, 625 MG PO TID PRN for DIARRHEA, (Reported) Entered as Reported by: ANEESH CORREA on 07/12/221008 Last Action: Reviewed Hydrocodone/Acetaminophen (Hydrocodone-Acetamin 5-325 mg) 5 Mg-325 Mg Tablet, 1 TAB PO Q8H PRN for PAIN-MODERATE (5-7), (Reported) Entered as Reported by: ANEESH CORREA on 07/12/221008 Last Action: Continued Insulin Aspart (Novolog Flexpen) 100 Unit/Ml (3 Ml) Solution, 5 UNITS SQ TIDPC, (Reported) Entered as Reported by: ANEESH CORREA on 07/12/221008 Last Action: Reviewed Insulin Degludec (Tresiba Flextouch U-200) 200 Unit/Ml (3 Ml) Insuln.pen, 72 UNIT SQ DAILY PRN for BLOOD SUGAR OVER 300, (Reported) Entered as Reported by: ANEESH CORREA on 07/12/221008 Last Action: Reviewed Levothyroxine Sodium (Levothyroxine Sodium) 125 Mcg Tablet, 125 MCG PO DAILY, (Reported) Entered as Reported by: ANEESH CORREA on 05/12/22 1621 Last Action: Continued Linezolid (Zyvox) 600 Mg Tablet, 600 MG PO BID, (Reported) Entered as Reported by: ANEESH CORREA on 07/12/221008 Last Action: Reviewed Losartan Potassium (Losartan Potassium) 100 Mg Tablet, 100 MG PO DAILY, (Reported) Entered as Reported by: ANEESH CORREA on 07/12/22 100 Last Action: Reviewed Metoclopramide HCl (Reglan) 10 Mg Tablet, 10 MG PO QIDACHS PRN for NAUSEA/VOMITING-3RD LINE, (Reported) Entered as Reported by: ANEESH CORREA on 07/12/22 100 Last Action: Reviewed Mirabegron (Myrbetriq) 50 Mg Tab.er.24h, 50 MG PO DAILY, (Reported) Entered as Reported by: ANEESH CORREA on 05/12/22 1621 Last Action: Converted Omeprazole (Omeprazole) 20 Mg Capsule.dr, 20 MG PO HS PRN for HEARTBURN, (Reported) Entered as Reported by: ANEESH CORREA on 07/12/22 100 Last Action: Reviewed Sennosides/Docusate Sodium (Senna S Tablet) 8.6 Mg-50 Mg Tablet, 2 EACH PO BID PRN for CONSTIPATION-6TH LINE, (Reported) Entered as Reported by: ANEESH CORREA on 07/12/22 100 Last Action: Continued Venlafaxine HCl (Venlafaxine HCl) 75 Mg Tab, 75 MG PO DAILY Prescribed by: JOSE VARGAS on 07/06/22 114 Last Action: Reviewed Discontinued Medications Amlodipine Besylate (Amlodipine Besylate) 5 Mg Tablet, 5 MG PO DAILY Discontinued Reason: Duplicate Order Prescribed by: JOSE VARGAS on 07/06/22 114 Last Action: Discontinued Cefdinir (Cefdinir) 300 Mg Capsule, 300 MG PO BID Discontinued Reason: Duplicate Order Prescribed by: JOSE VARGAS on 07/06/22 114 Last Action: Discontinued Cephalexin (Cephalexin) 500 Mg Capsule, 500 MG PO TID, (Reported) Entered as Reported by: EVELINA ANNE on 07/03/22 1002 Clindamycin HCl (Clindamycin HCl) 150 Mg Capsule, 150 MG PO QID, (Reported) Entered as Reported by: EVELINA ANNE on 07/03/22 1002 Glucagon (Gvoke Hypopen) 1 Mg/0.2 Ml Auto.injct, 1 MG SQ DAILY PRN for HYPOGLYCEMIA, (Reported) Discontinued Reason: Duplicate Order Entered as Reported by: EVELINA ANNE on 07/03/22 1014 Last Action: Discontinued Hydrocodone/Acetaminophen (Hydrocodone-Acetamin 5-325 mg) 5 Mg-325 Mg Tablet, 1 EA PO TID PRN for PAIN-MODERATE (5-7) Discontinued Reason: Duplicate Order Prescribed by: JOSE VARGAS on 07/06/221148 Last Action: Discontinued Insulin Aspart (Novolog Flexpen) 100 Unit/Ml (3 Ml) Solution, 5 UNITS SQ TIDPC Discontinued Reason: Duplicate Order Prescribed by: JOSE VARGAS on 07/06/221148 Last Action: Discontinued Insulin Degludec (Tresiba Flextouch U-200) 200 Unit/Ml (3 Ml) Insuln.pen, 70 UNITS SC DAILY Discontinued Reason: Duplicate Order Prescribed by: JOSE VARGAS on 07/06/221148 Last Action: Discontinued Linezolid (Zyvox) 600 Mg Tablet, 600 MG PO BID Discontinued Reason: Duplicate Order Prescribed by: JOSE VARGAS on 07/06/221148 Last Action: Discontinued Losartan Potassium (Losartan Potassium) 100 Mg Tablet, 100 MG PO DAILY Discontinued Reason: Duplicate Order Prescribed by: JOSE VARGAS on 07/06/221148 Last Action: Discontinued Metoclopramide HCl (Metoclopramide HCl) 10 Mg Tablet, 10 MG PO QIDACHS Discontinued Reason: Duplicate Order Prescribed by: JOSE VARGAS on 07/06/221148 Last Action: Discontinued Sennosides/Docusate Sodium (Stool Softener-Laxative Tablet) 8.6 Mg-50 Mg Tablet, 2 EA PO BID Discontinued Reason: Duplicate Order Prescribed by: JOSE VARGAS on 07/06/221148 Last Action: Discontinued Past Mnevmfr-Zctueg-Npuyqr Hx Patient Social History Smoking Status: Former Smoker Former Smoker, Quit: March 24, 2000 2nd Hand Smoke Exposure: No Recent Hopitalizations: No Alcohol Use?: No Have you traveled recently?: No Immunizations Up To Date Tetanus Booster (TDap): More than 5yrs PED Vaccines UTD: No Date of Pneumonia Vaccine: Aug 21, 2016 Date of Influenza Vaccine: Aug 24, 2020 Seasonal Allergies Seasonal Allergies: Yes Surgeries History of Surgeries: Yes (hemmorhoids removed, CATARACTS, WRIST FX, right 2nd toe amputation) Surgeries: Orthopedic (right 2nd toe amputation) Respiratory History of Respiratory Disorde: Yes Respiratory Disorders: Pneumonia, Sleep Apnea, COPD Cardiovascular History of Cardiac Disorders: Yes Cardiac Disorders: High Cholesterol, Hypertension Neurological History of Neurological Disord: Yes Neurological Disorders: Dementia, Neuropathy, Parkinson's Disease Reproductive System Hx Reproductive Disorders: No Sexually Transmitted Disease: No HIV/AIDS: No Genitourinary History of Genitourinary Disor: No Gastrointestinal History of Gastrointestinal Di: Yes Gastrointestinal Disorders: Gastroesophageal Reflux, Chronic Constipation, Hemorrhoids, Chronic Diarrhea, Irritable Bowel Musculoskeletal History of Musculoskeletal Dis: Yes Musculoskeletal Disorders: Arthritis, Chronic Back Pain, Fractures Endocrine History of Endocrine Disorders: Yes (Type II) Endocrine Disorders: Diabetes, Insulin dep HEENT HEENT Disorders: Cataract Loss of Vision: Bilateral Hearing Impairment: Denies Cancer History of Cancer: No Psychosocial History of Psychiatric Problem: Yes Behavioral Health Disorders: Anxiety, Depression Integumentary History of Skin or Integumenta: No Blood Transfusions History of Blood Disorders: No Adverse Reaction to a Blood Tr: No (N/A) Family Medical History Significant Family History: Hypertension Family Medial History: Alcoholism G8 BROTHER G8 BROTHER Alzheimer's disease 19 MOTHER Arthritis 19 FATHER 19 MOTHER Asthma 19 FATHER Cataracts 19 FATHER 19 MOTHER G8 BROTHER G8 BROTHER G8 SISTER G8 SISTER G8 SISTER Completed stroke 19 FATHER G8 SISTER Deafness or hearing loss G8 BROTHER Diabetes mellitus 19 FATHER 19 MOTHER G8 BROTHER G8 BROTHER G8 BROTHER G8 SISTER G8 SISTER G8 SISTER Hypertension 19 FATHER 19 MOTHER G8 BROTHER G8 BROTHER G8 BROTHER G8 BROTHER G8 SISTER G8 SISTER G8 SISTER G8 SISTER G8 SISTER G8 SISTER G8 SISTER Respiratory disorder G8 BROTHER No Family History of: AIDS Abdominal aortic aneurysm [place]'s disease Aphasia Cancer of mouth Cardiovascular disease Colon cancer Congenital disease Congenital heart disease Coronary thrombosis Cystic fibrosis Dementia Drug abuse Dysphasia Fibrocystic disease of breast Gastroenteritis Glaucoma Headache disorder Hypercholesterolemia Infertility Kidney disease Myocardial infarction Neoplasm Not obtainable due to adoption Osteoporosis Parkinson's disease Prostate cancer Psychosocial problem Seizure disorder Severe allergy Thyroid disease Tuberculosis Visual disorder Review of Systems-General Constitutional: No chills, No fever EENTM: No hearing loss, No blurred vision Respiratory: No cough, No short of breath Cardiovascular: No chest pain, No edema Gastrointestinal: No abdominal pain, No nausea, No vomiting Genitourinary: No discharge, No dysuria Musculoskeletal: No back pain Skin: change in color (ischemic 4th right toe ), other (erythema noted to right foot toes and sole of foot) Psychiatric/Neurological: Denies Anxiety, Denies Depressed Physical Exam-General Problems Physical Exam Vital Signs Vital Signs - First Documented 07/11/22 07/12/22 20:00 00:27 Temp 36.7 Pulse 87 Resp 18 B/P (MAP) 174/80 (111) Pulse Ox 95 O2 Delivery Room Air FiO2 21 Capillary Refill : Less Than 3 Seconds General Appearance: WD/WN, no apparent distress HEENT: PERRL/EOMI Neck: supple, normal inspection Respiratory: chest non-tender, no respiratory distress, no accessory muscle use Cardiovascular: no edema, no JVD Gastrointestinal: non tender, soft Rectal: deferred Back: normal inspection, no CVA tenderness Extremities: No normal capillary refill (to right toes); other (right 2nd toe amputated, nonhealing wound ) Neurologic/Psychiatric: alert, normal mood/affect Skin: No normal color; pallor (to right 4th toe) Lymphatic: no adenopathy Data Review Labs Laboratory Tests 07/11/22 20:00: White Blood Count 23.7H, Red Blood Count 3.01L, Hemoglobin 8.4L, Hematocrit 27L, Mean Corpuscular Volume 88, Mean Corpuscular Hemoglobin 28, Mean Corpuscular Hemoglobin Concent 32, Red Cell Distribution Width 13.8, Platelet Count 1245*H, Mean Platelet Volume 9.3, Immature Granulocyte % (Auto) 1, Neutrophils (%) (Auto) 76H, Lymphocytes (%) (Auto) 15, Monocytes (%) (Auto) 6, Eosinophils (%) (Auto) 1, Basophils (%) (Auto) 0, Neutrophils # (Auto) 18.1H, Lymphocytes # (Auto) 3.6, Monocytes # (Auto) 1.5H, Eosinophils # (Auto) 0.3, Basophils # (Auto) 0.1, Immature Granulocyte # (Auto) 0.2H, Neutrophils % (Manual) 82, Lymphocytes % (Manual) 7, Monocytes % (Manual) 7, Eosinophils % (Manual) 4, Percent Immature Platelet Fraction 1.4, Polychromasia SLIGHT, Anisocytosis MODERATE, Prothrombin Time 14.8H, INR Comment 1.1, Activated Partial Thromboplast Time 46H, Sodium Level 133L, Potassium Level 5.4H, Chloride Level 95L, Carbon Dioxide Level 25, Anion Gap 13, Blood Urea Nitrogen 23H, Creatinine 1.51H, Estimat Glomerular Filtration Rate 49, BUN/Creatinine Ratio 15, Glucose Level 244H, Calcium Level 9.7, Corrected Calcium 10.3H, Total Bilirubin 0.3, Aspartate Amino Transf (AST/SGOT) 42H, Alanine Aminotransferase (ALT/SGPT) 37, Alkaline Phosphatase 426H, Total Protein 9.4H, Albumin 3.2 07/11/22 20:58: Urine Color YELLOW, Urine Clarity CLEAR, Urine pH 6.5, Urine Specific Ennice 1.015L, Urine Protein 2+H, Urine Glucose (UA) TRACEH, Urine Ketones NEGATIVE, Urine Nitrite NEGATIVE, Urine Bilirubin NEGATIVE, Urine Urobilinogen 0.2, Urine Leukocyte Esterase NEGATIVE, Urine RBC (Auto) NEGATIVE, Urine RBC 0-2, Urine WBC NONE, Urine Squamous Epithelial Cells NONE, Urine Renal Epithelial Cells NONE, Urine Crystals NONE, Urine Bacteria NEGATIVE, Urine Casts NONE, Urine Mucus NEGATIVE, Urine Culture Indicated NO 07/12/22 05:15: White Blood Count 21.7H, Red Blood Count 2.68L, Hemoglobin 7.7L, Hematocrit 23L, Mean Corpuscular Volume 87, Mean Corpuscular Hemoglobin 29, Mean Corpuscular Hemoglobin Concent 33, Red Cell Distribution Width 14.1, Platelet Count 951H, Mean Platelet Volume 9.4, Immature Granulocyte % (Auto) 1, Neutrophils (%) (Auto) 73, Lymphocytes (%) (Auto) 18, Monocytes (%) (Auto) 6, Eosinophils (%) (Auto) 2, Basophils (%) (Auto) 1, Neutrophils # (Auto) 15.8H, Lymphocytes # (Auto) 3.9, Monocytes # (Auto) 1.4H, Eosinophils # (Auto) 0.3, Basophils # (Auto) 0.1, Immature Granulocyte # (Auto) 0.2H, Sodium Level 132L, Potassium Level 6.3H, Chloride Level 99, Carbon Dioxide Level 21, Anion Gap 12, Blood Urea Nitrogen 20H, Creatinine 1.37H, Estimat Glomerular Filtration Rate 55, BUN/ Creatinine Ratio 15, Glucose Level 120H, Calcium Level 9.1, Glucometer 126H 07/12/22 11:17: Glucometer 186H Assessment/Plan Assessment/Plan Assessment/Plan S/P Right 2nd toe amputation with nonhealing wounds Hx of peripheral vascular disease Critical limb ischemia to right toes Continue wound care to right foot Consider surgery to right foot if wound continues to spread and not heal KATTY PACK DO 07/12/221945: History of Present Illness History of Present Illness History of Present Illness Consult requested by Dr. Solo. Patient is poor historian he is alert but not oriented. Patient is a 71-year-old male with recent right foot second toe amputation. He has had undergo angioplasty of the right lower extremity. He began having some recent discoloration to the third toe on the right and also some of the superficial skin and onto the dorsum and plantar portion of the foot. The fourth toe was discolored but this return to normal color at this time. Patient has some slight discomfort to the area. No other complaints at this time. Denies nausea vomiting fever sweats chills shortness of breath or chest pain. Allergies and Home Medications Allergies Coded Allergies: choline fenofibrate (Verified Allergy, Unknown, 12/07/17) gemfibrozil (Verified Allergy, Unknown, 12/07/17) niacin (Verified Allergy, Unknown, 12/07/17) pioglitazone (Verified Allergy, Unknown, 12/07/17) Patient Home Medication List Home Medication List Reviewed: Yes Albuterol Sulfate (Proair Hfa) 1 Puff Puff, 2 PUFF IH Q4H PRN for SHORTNESS OF BREATH, (Reported) Entered as Reported by: ANEESH CORREA on 05/12/221620 Last Action: Reviewed Alirocumab (Praluent Pen) 75 Mg/Ml Pen.injctr, 75 MG INJ EVERY 2 WEEKS, (Reported) Entered as Reported by: ANEESH CORREA on 05/12/221620 Last Action: Reviewed Amlodipine Besylate (Amlodipine Besylate) 5 Mg Tablet, 5 MG PO DAILY, (Reported) Entered as Reported by: ANEESH CORREA on 07/12/22 1009 Last Action: Continued Aspirin (Aspirin EC) 81 Mg Tablet.dr, 81 MG PO DAILY, (Reported) Entered as Reported by: ANEESH CORREA on 05/12/221620 Last Action: Reviewed Atorvastatin Calcium (Atorvastatin Calcium) 80 Mg Tablet, 80 MG PO HS, (Reported) Entered as Reported by: EVELINA ANNE on 07/03/22 1002 Last Action: Continued Cefdinir (Cefdinir) 300 Mg Capsule, 300 MG PO BID, (Reported) Entered as Reported by: ANEESH CORREA on 07/12/221008 Last Action: Reviewed Cholecalciferol (Vitamin D3) (Vitamin D3) 1,250 Mcg (23000 Unit) Capsule, 1,250 MCG PO FRIDAYS, (Reported) Entered as Reported by: EVELINA ANNE on 07/03/221001 Last Action: Reviewed Clopidogrel Bisulfate (Clopidogrel) 75 Mg Tablet, 75 MG PO DAILY, (Reported) Entered as Reported by: EVELINA ANNE on 07/03/221001 Last Action: Reviewed Colesevelam HCl (Welchol) 625 Mg Tablet, 625 MG PO TID PRN for DIARRHEA, (Reported) Entered as Reported by: ANEESH CORREA on 07/12/221008 Last Action: Reviewed Hydrocodone/Acetaminophen (Hydrocodone-Acetamin 5-325 mg) 5 Mg-325 Mg Tablet, 1 TAB PO Q8H PRN for PAIN-MODERATE (5-7), (Reported) Entered as Reported by: ANEESH CORREA on 07/12/221008 Last Action: Continued Insulin Aspart (Novolog Flexpen) 100 Unit/Ml (3 Ml) Solution, 5 UNITS SQ TIDPC, (Reported) Entered as Reported by: ANEESH CORREA on 07/12/221008 Last Action: Reviewed Insulin Degludec (Tresiba Flextouch U-200) 200 Unit/Ml (3 Ml) Insuln.pen, 72 UNIT SQ DAILY PRN for BLOOD SUGAR OVER 300, (Reported) Entered as Reported by: ANEESH CORREA on 07/12/221008 Last Action: Reviewed Levothyroxine Sodium (Levothyroxine Sodium) 125 Mcg Tablet, 125 MCG PO DAILY, (Reported) Entered as Reported by: ANEESH CORREA on 05/12/22 1621 Last Action: Continued Linezolid (Zyvox) 600 Mg Tablet, 600 MG PO BID, (Reported) Entered as Reported by: ANEESH CORREA on 07/12/221008 Last Action: Reviewed Losartan Potassium (Losartan Potassium) 100 Mg Tablet, 100 MG PO DAILY, (Reported) Entered as Reported by: ANEESH CORREA on 07/12/221008 Last Action: Reviewed Metoclopramide HCl (Reglan) 10 Mg Tablet, 10 MG PO QIDACHS PRN for NAUSEA/VOMITING-3RD LINE, (Reported) Entered as Reported by: ANEESH CORREA on 07/12/22 100 Last Action: Reviewed Mirabegron (Myrbetriq) 50 Mg Tab.er.24h, 50 MG PO DAILY, (Reported) Entered as Reported by: ANEESH CORREA on 05/12/22 1621 Last Action: Converted Omeprazole (Omeprazole) 20 Mg Capsule.dr, 20 MG PO HS PRN for HEARTBURN, (Reported) Entered as Reported by: ANEESH CORREA on 07/12/22 100 Last Action: Reviewed Sennosides/Docusate Sodium (Senna S Tablet) 8.6 Mg-50 Mg Tablet, 2 EACH PO BID PRN for CONSTIPATION-6TH LINE, (Reported) Entered as Reported by: ANEESH CORREA on 07/12/22 100 Last Action: Continued Venlafaxine HCl (Venlafaxine HCl) 75 Mg Tab, 75 MG PO DAILY Prescribed by: JOSE VARGAS on 07/06/22 114 Last Action: Reviewed Discontinued Medications Amlodipine Besylate (Amlodipine Besylate) 5 Mg Tablet, 5 MG PO DAILY Discontinued Reason: Duplicate Order Prescribed by: JOSE VARGAS on 07/06/22 114 Last Action: Discontinued Cefdinir (Cefdinir) 300 Mg Capsule, 300 MG PO BID Discontinued Reason: Duplicate Order Prescribed by: JOSE VARGAS on 07/06/22 114 Last Action: Discontinued Cephalexin (Cephalexin) 500 Mg Capsule, 500 MG PO TID, (Reported) Entered as Reported by: EVELINA ANNE on 07/03/22 1002 Clindamycin HCl (Clindamycin HCl) 150 Mg Capsule, 150 MG PO QID, (Reported) Entered as Reported by: EVELINA ANNE on 07/03/22 1002 Glucagon (Gvoke Hypopen) 1 Mg/0.2 Ml Auto.injct, 1 MG SQ DAILY PRN for HYPOGLYCEMIA, (Reported) Discontinued Reason: Duplicate Order Entered as Reported by: EVELINA ANNE on 07/03/22 1014 Last Action: Discontinued Hydrocodone/Acetaminophen (Hydrocodone-Acetamin 5-325 mg) 5 Mg-325 Mg Tablet, 1 EA PO TID PRN for PAIN-MODERATE (5-7) Discontinued Reason: Duplicate Order Prescribed by: JOSE VARGAS on 07/06/221148 Last Action: Discontinued Insulin Aspart (Novolog Flexpen) 100 Unit/Ml (3 Ml) Solution, 5 UNITS SQ TIDPC Discontinued Reason: Duplicate Order Prescribed by: JOSE VARGAS on 07/06/221148 Last Action: Discontinued Insulin Degludec (Tresiba Flextouch U-200) 200 Unit/Ml (3 Ml) Insuln.pen, 70 UNITS SC DAILY Discontinued Reason: Duplicate Order Prescribed by: JOSE VARGAS on 07/06/221148 Last Action: Discontinued Linezolid (Zyvox) 600 Mg Tablet, 600 MG PO BID Discontinued Reason: Duplicate Order Prescribed by: JOSE VARGAS on 07/06/221148 Last Action: Discontinued Losartan Potassium (Losartan Potassium) 100 Mg Tablet, 100 MG PO DAILY Discontinued Reason: Duplicate Order Prescribed by: JOSE VARGAS on 07/06/221148 Last Action: Discontinued Metoclopramide HCl (Metoclopramide HCl) 10 Mg Tablet, 10 MG PO QIDACHS Discontinued Reason: Duplicate Order Prescribed by: JOSE VARGAS on 07/06/221148 Last Action: Discontinued Sennosides/Docusate Sodium (Stool Softener-Laxative Tablet) 8.6 Mg-50 Mg Tablet, 2 EA PO BID Discontinued Reason: Duplicate Order Prescribed by: JOSE VARGAS on 07/06/221148 Last Action: Discontinued Past Bzlpomw-Uwtphg-Ndvtlf Hx Reviewed Nursing Assessment Reviewed/Agree w Nursing PMH: Yes Family Medical History Significant Family History: No Pertinent Family Hx Family Medial History: Alcoholism G8 BROTHER G8 BROTHER Alzheimer's disease 19 MOTHER Arthritis 19 FATHER 19 MOTHER Asthma 19 FATHER Cataracts 19 FATHER 19 MOTHER G8 BROTHER G8 BROTHER G8 SISTER G8 SISTER G8 SISTER Completed stroke 19 FATHER G8 SISTER Deafness or hearing loss G8 BROTHER Diabetes mellitus 19 FATHER 19 MOTHER G8 BROTHER G8 BROTHER G8 BROTHER G8 SISTER G8 SISTER G8 SISTER Hypertension 19 FATHER 19 MOTHER G8 BROTHER G8 BROTHER G8 BROTHER G8 BROTHER G8 SISTER G8 SISTER G8 SISTER G8 SISTER G8 SISTER G8 SISTER G8 SISTER Respiratory disorder G8 BROTHER No Family History of: AIDS Abdominal aortic aneurysm [place]'s disease Aphasia Cancer of mouth Cardiovascular disease Colon cancer Congenital disease Congenital heart disease Coronary thrombosis Cystic fibrosis Dementia Drug abuse Dysphasia Fibrocystic disease of breast Gastroenteritis Glaucoma Headache disorder Hypercholesterolemia Infertility Kidney disease Myocardial infarction Neoplasm Not obtainable due to adoption Osteoporosis Parkinson's disease Prostate cancer Psychosocial problem Seizure disorder Severe allergy Thyroid disease Tuberculosis Visual disorder Review of Systems-General Constitutional: No chills, No fever; weakness EENTM: No hearing loss, No blurred vision Respiratory: No cough, No short of breath Cardiovascular: No chest pain, No edema Gastrointestinal: No abdominal pain, No nausea, No vomiting Genitourinary: No discharge, No dysuria Musculoskeletal: No back pain Skin: change in color (ischemic 3rd/4th right toe ), other (erythema noted to right foot toes and sole of foot) Psychiatric/Neurological: Denies Anxiety, Denies Depressed All Other Systems Reviewed Negative Unless Noted: Yes (Negative excepted noted.) Physical Exam-General Problems Physical Exam General Appearance: WD/WN, no apparent distress HEENT: PERRL/EOMI, normal ENT inspection Neck: non-tender, supple Respiratory: chest non-tender, no respiratory distress, no accessory muscle use Cardiovascular: regular rate, rhythm, no JVD Gastrointestinal: non tender, soft Rectal: deferred Back: normal inspection, no CVA tenderness Extremities: other (right 2nd toe amputated, nonhealing wound, ischemic appearance of the skin of the third toe partial and also to the dorsum and plantar portion of the foot on the right its not wet) Neurologic/Psychiatric: alert, normal mood/affect; No oriented x 3 Skin: normal color, warm/dry Lymphatic: no adenopathy Assessment/Plan Assessment/Plan Assessment/Plan S/P Right 2nd toe amputation with nonhealing wounds Hx of peripheral vascular disease Critical limb ischemia to right toes Ischemic changes to the third toe and skin to the dorsum and plantar portion of the foot Continue wound care to right foot I think ischemic portion of superficial at this time. Also drives not wet so we will continue to monitor the area before proceeding with any surgical intervention. If does have a change he may need amputation. Continue with medical management this time. Will Follow-up. Supervisory-Addendum Brief Verification & Attestation Participated in pt care: history, MDM, physical Personally performed: exam, history, MDM, supervision of care Care discussed with: Medical Student Procedures: n/a Results interpretation: Verified all documentation Verification and Attestation of Medical Student E/M Service A medical student performed and documented this service in my presence. I reviewed and verified all information documented by the medical student and made modifications to such information, when appropriate. I personally performed the physical exam and medical decision making. Katty Pack, Jul 12, 2022,19:49 GURJIT BONILLA Jul 12, 2022 12:17 KATTY PACK DO Jul 12, 2022 19:46
[2022-07-12] MEDS ORDERED: PIPERACILLIN SODIUM/TAZOBACTAM 4.5 GM in NS (IVPB) 100 ML IV NR (14:00)
[2022-07-12] MEDS ORDERED: SENNA W/DOCUSATE (SENOKOT S) TABLET PO PRN (14:00)
--- NOTE | 2022-07-12 16:35 | History & Physical ---
CLARY RODRIUGES 07/12/22 1635: HPI History of Present Illness: Patient admitted after a visit to the ER this morning for abdominal pain and nausea as well as ischemia of the right forefoot. He was only able to provided limited information about his medical history. While at the ER, he described his abdominal pain and nausea as 1 week in duration and associated with dizziness and headache. In this visit, he denied stomach pain, and could not answer wether or not he was experiencing dizziness or a headache. There was no tenderness in all four quadrants on palpation. He believes he had a bowel movement yesterday and could not specify when he ate last. He is also one week status post amputation of the second toe of the right foot. He denied pain in the region but was unable to answer further questions about the healing wound. He denied chest pain and shortness of breath. Attending Physician Vinh Paulino MD PCP Admitting Physician: Arielle De La Cruz MD Attending Physician: Arielle De La Cruz MD Consult Date of Admission Jul 11, 2022 at 23:20 Home Medications Home Medications Reviewed patient Home Medication Reconciliation performed by pharmacy medication reconciliations manufacturing production technician and/or nursing. Patients Allergies have been reviewed. Allergies Coded Allergies: choline fenofibrate (Verified Allergy, Unknown, 12/07/17) gemfibrozil (Verified Allergy, Unknown, 12/07/17) niacin (Verified Allergy, Unknown, 12/07/17) pioglitazone (Verified Allergy, Unknown, 12/07/17) VFD-[id number]-Sikqxw Hx Patient Social History Marrital Status: Employed/Student: unemployed Smoking Status: Former Smoker 2nd Hand Smoke Exposure: No Recent Hopitalizations: No Alcohol Use?: No Have you traveled recently?: No Immunizations Up To Date Tetanus Booster (TDap): More than 5yrs Influenza Vaccine Up-to-Date: No; Not Current First/Initial COVID19 Vaccinat: NO Second COVID19 Vaccination Ben: NO Third COVID19 Vaccination Date: NO Past Medical History Diabetes mellitus Hypothyroidism Hypertension Surg Hx: eye surgery, cholecystectomy Family Medical History Significant Family History: Hypertension Family History: Alcoholism G8 BROTHER G8 BROTHER Alzheimer's disease 19 MOTHER Arthritis 19 FATHER 19 MOTHER Asthma 19 FATHER Cataracts 19 FATHER 19 MOTHER G8 BROTHER G8 BROTHER G8 SISTER G8 SISTER G8 SISTER Completed stroke 19 FATHER G8 SISTER Deafness or hearing loss G8 BROTHER Diabetes mellitus 19 FATHER 19 MOTHER G8 BROTHER G8 BROTHER G8 BROTHER G8 SISTER G8 SISTER G8 SISTER Hypertension 19 FATHER 19 MOTHER G8 BROTHER G8 BROTHER G8 BROTHER G8 BROTHER G8 SISTER G8 SISTER G8 SISTER G8 SISTER G8 SISTER G8 SISTER G8 SISTER Respiratory disorder G8 BROTHER No Family History of: AIDS Abdominal aortic aneurysm Oktibbeha's disease Aphasia Cancer of mouth Cardiovascular disease Colon cancer Congenital disease Congenital heart disease Coronary thrombosis Cystic fibrosis Dementia Drug abuse Dysphasia Fibrocystic disease of breast Gastroenteritis Glaucoma Headache disorder Hypercholesterolemia Infertility Kidney disease Myocardial infarction Neoplasm Not obtainable due to adoption Osteoporosis Parkinson's disease Prostate cancer Psychosocial problem Seizure disorder Severe allergy Thyroid disease Tuberculosis Visual disorder Review of Systems ([facility]) Cardiovascular: edema (mild edema of both legs) Physical Exam-([facility]) Physical Exam Vital Signs VS - Last 72 Hours, by Label 07/11/22 07/12/22 07/12/22 07/12/22 20:00 00:01 00:10 00:10 Temp 36.7 36.7 36.3 Pulse 87 79 83 Resp 18 20 18 B/P (MAP) 174/80 (111) 148/66 161/78 (105) Pulse Ox 95 94 96 96 O2 Delivery Room Air Room Air Room Air Room Air 07/12/22 07/12/22 07/12/22 07/12/22 00:27 03:15 07:56 08:00 Temp 36.7 36.7 36.6 Pulse 87 85 85 Resp 18 18 B/P (MAP) 127/66 (86) 145/67 (93) Pulse Ox 95 95 92 O2 Delivery Room Air Room Air Room Air FiO2 21 07/12/22 07/12/22 07/12/22 11:20 15:31 15:49 Temp 36.3 35.8 Pulse 86 86 Resp 18 20 B/P (MAP) 118/57 (77) 172/79 (110) Pulse Ox 100 100 94 O2 Delivery Room Air Room Air Room Air Capillary Refill : Less Than 3 Seconds Assessment/Plan Assessment/Plan Reason for Inpatient Admission: Patient admitted for after a visit to ER for 1-week of abdominal pain with nausea as well as ischemia of the right foot S/P right toe amputation. 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 Venous ultrasound this morning showed faint and weak flow in the right dorsalis pedis. Right left toe was amputed one week ago, but the surrounding region is healing poorly and appears to still be isc hemic. Samples of the area were taken for culture this morning. Nitroglycerine 1 inch applied to the area for pain relief. Peripheral vascular disease: aspirin and clopidigrel for DVT prophylaxis. 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 Glucometer today showed 220 and HbA1c is pending. Cerebral infarction due to unspecified occlusion or stenosis of bilateral middle cerebral arteries: aspirin, clodpidgrel Gastroparesis: metoclopramide. gastroparesis is a potential cause be the cause of patient's recent abdominal pain. HTN: losartan, amlodipine: blood pressure has fluctuated from 118/57 to 172/79 since arrival. Hyperthyroidism: levothyroxine IBS with constipation: docusate sodium, sennosides-docusate sodium GERD with esophagitis: omprazole Bladder overactivity: Mirabegron Patient was evaluated by Dr. Cyndie mcduffie, who noted occlusion of the right tibial artery in addition to the findings on the venous ultrasound. Surgery will determine if further amputation is necessary. The patient's abdominal pain was evaluated with was a CT scan, which ruled out any acute abnormalities of the abdomen or pelvis. Hi pain abetted a few hours after admission and may have been due to gastroparesis. ARIELLE DE LA CRUZ MD 07/12/22 2007: HPI History of Present Illness: Date seen by provider: Jul 12, 2022 Time Seen by Provider: 10:05 Home Medications Allergies Coded Allergies: choline fenofibrate (Verified Allergy, Unknown, 12/07/17) gemfibrozil (Verified Allergy, Unknown, 12/07/17) niacin (Verified Allergy, Unknown, 12/07/17) pioglitazone (Verified Allergy, Unknown, 12/07/17) BAG-Ufqrwe-Eqhqry Hx Patient Social History Living Status: Lives at home with Past Medical History PVD IDDM Hypothyroidism HLD H/o CVA Family Medical History Family History: Alcoholism G8 BROTHER G8 BROTHER Alzheimer's disease 19 MOTHER Arthritis 19 FATHER 19 MOTHER Asthma 19 FATHER Cataracts 19 FATHER 19 MOTHER G8 BROTHER G8 BROTHER G8 SISTER G8 SISTER G8 SISTER Completed stroke 19 FATHER G8 SISTER Deafness or hearing loss G8 BROTHER Diabetes mellitus 19 FATHER 19 MOTHER G8 BROTHER G8 BROTHER G8 BROTHER G8 SISTER G8 SISTER G8 SISTER Hypertension 19 FATHER 19 MOTHER G8 BROTHER G8 BROTHER G8 BROTHER G8 BROTHER G8 SISTER G8 SISTER G8 SISTER G8 SISTER G8 SISTER G8 SISTER G8 SISTER Respiratory disorder G8 BROTHER No Family History of: AIDS Abdominal aortic aneurysm Britton's disease Aphasia Cancer of mouth Cardiovascular disease Colon cancer Congenital disease Congenital heart disease Coronary thrombosis Cystic fibrosis Dementia Drug abuse Dysphasia Fibrocystic disease of breast Gastroenteritis Glaucoma Headache disorder Hypercholesterolemia Infertility Kidney disease Myocardial infarction Neoplasm Not obtainable due to adoption Osteoporosis Parkinson's disease Prostate cancer Psychosocial problem Seizure disorder Severe allergy Thyroid disease Tuberculosis Visual disorder Review of Systems ([facility]) Constitutional: no symptoms reported EENTM: no symptoms reported Respiratory: no symptoms reported Cardiovascular: no symptoms reported Gastrointestinal: abdominal pain; No nausea, No vomiting Genitourinary: no symptoms reported; No dysuria, No frequency, No hematuria Musculoskeletal: joint pain, muscle pain Skin: rash Psychiatric/Neurological: Anxiety, Depressed Reviewed Test Results Reviewed Test Results Lab Laboratory Tests Test 07/11/22 20:58 07/12/22 05:15 07/12/22 11:17 07/12/22 15:52 Range/Units Urine Color YELLOW Urine Clarity CLEAR Urine pH 6.5 5-9 Urine Specific [place] 1.015 L 1.016-1.022 Urine Protein 2+ H NEGATIVE Urine Glucose (UA) TRACE H NEGATIVE Urine Ketones NEGATIVE NEGATIVE Urine Nitrite NEGATIVE NEGATIVE Urine Bilirubin NEGATIVE NEGATIVE Urine Urobilinogen 0.2 < = 1.0 MG/DL Urine Leukocyte Esterase NEGATIVE NEGATIVE Urine RBC (Auto) NEGATIVE NEGATIVE Urine RBC 0-2 /HPF Urine WBC NONE /HPF Urine Squamous Epithelial Cells NONE /HPF Urine Renal Epithelial Cells NONE /HPF Urine Crystals NONE /LPF Urine Bacteria NEGATIVE /HPF Urine Casts NONE /LPF Urine Mucus NEGATIVE /LPF Urine Culture Indicated NO White Blood Count 21.7 H 4.3-11.0 10^3/uL Red Blood Count 2.68 L 4.30-5.52 10^6/uL Hemoglobin 7.7 L 13.3-17.7 g/dL Hematocrit 23 L 40-54 % Mean Corpuscular Volume 87 80-99 fL Mean Corpuscular Hemoglobin 29 25-34 pg Mean Corpuscular Hemoglobin Concent 33 32-36 g/dL Red Cell Distribution Width 14.1 10.0-14.5 % Platelet Count 951 H 130-400 10^3/uL Mean Platelet Volume 9.4 9.0-12.2 fL Immature Granulocyte % (Auto) 1 % Neutrophils (%) (Auto) 73 42-75 % Lymphocytes (%) (Auto) 18 12-44 % Monocytes (%) (Auto) 6 0-12 % Eosinophils (%) (Auto) 2 0-10 % Basophils (%) (Auto) 1 0-10 % Neutrophils # (Auto) 15.8 H 1.8-7.8 10^3/uL Lymphocytes # (Auto) 3.9 1.0-4.0 10^3/uL Monocytes # (Auto) 1.4 H 0.0-1.0 10^3/uL Eosinophils # (Auto) 0.3 0.0-0.3 10^3/uL Basophils # (Auto) 0.1 0.0-0.1 10^3/uL Immature Granulocyte # (Auto) 0.2 H 0.0-0.1 10^3/uL Sodium Level 132 L 135-145 MMOL/L Potassium Level 6.3 H 3.6-5.0 MMOL/L Chloride Level 99 98-107 MMOL/L Carbon Dioxide Level 21 21-32 MMOL/L Anion Gap 12 5-14 MMOL/L Blood Urea Nitrogen 20 H 7-18 MG/DL Creatinine 1.37 H 0.60-1.30 MG/DL Estimat Glomerular Filtration Rate 55 BUN/Creatinine Ratio 15 Glucose Level 120 H 70-105 MG/DL Glucometer 126 H 186 H 220 H 70-110 MG/DL Calcium Level 9.1 8.5-10.1 MG/DL Physical Exam-([facility]) Physical Exam General Appearance: WD/WN, no apparent distress HEENT: PERRL/EOMI Neck: non-tender, full range of motion Respiratory: chest non-tender, lungs clear, normal breath sounds, no respiratory distress, no accessory muscle use Cardiovascular: regular rate, rhythm, no edema, no murmur Gastrointestinal: non tender, soft; No distended, No guarding, No rebound, No tenderness Back: no CVA tenderness, no vertebral tenderness Extremities: calf tenderness, other (Decreased pedal pulses, mottling on the bottom of the right foot) 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 I reviewed and verified all information documented by the medical student and made modifications to such information, when appropriate. I personally performed the physical exam and medical decision making. Arielle De La Cruz, Jul 12, 2022,20:20 Ischemic right foot and toes Severe PVD Non Healing foot wound Recent right toe infection - Wound care and Cardiology consulted, Recent angiogram with severe and occlusive disease, DAPT, Lovenox - Dr Fu to take patient to angiogram tomorrow IDDM - A1c pending, SSI Hypothyroidism - Restart home meds HLD - Restart statin h/o CVA Hyperkalemia - Stopped ARB CLARY RODRIGUES Jul 12, 2022 16:35 ARIELLE DE LA CRUZ MD Jul 12, 2022 20:07
[2022-07-12] MEDS: PIPERACILLIN SODIUM/TAZOBACTAM 4.5 GM in NS (IVPB) 100 ML IV SCH (20:28)
[2022-07-13] VITALS (18 sets, daily range): BP systolic 112–182; BP diastolic 67–86
[2022-07-13] MEDS: NS IV 1000 ML 1,000 ML IV SCH ×4 (01:00→20:48)
[2022-07-13] MEDS: PIPERACILLIN SODIUM/TAZOBACTAM 4.5 GM in NS (IVPB) 100 ML IV SCH ×3 (04:59→20:47)
[2022-07-13] MEDS: CATHETER FLUSH 10 ML SYR IVP SCH ×3 (05:18→20:47)
[2022-07-13] MEDS: LEVOTHYROXINE 125 MCG (LEVOTHROID) TABLET PO SCH (05:40)
[2022-07-13] MEDS: NITROGLYCERIN 2% OINT 1 GM UNIT DOSE PACKET TOP SCH ×3 (05:40→17:59)
[2022-07-13 05:57] LABS: BASOPHILS % (AUTO) 0 % (0-10); EOSINOPHILS # (AUTO) 0.2 10^3/uL (0.0-0.3); EOSINOPHILS % (AUTO) 1 % (0-10); HEMOGLOBIN 8.1 g/dL (13.3-17.7); MEAN CORPUSCULAR HEMOGLOBIN 28 pg (25-34); MEAN PLATELET VOLUME 8.8 fL (9.0-12.2)
[2022-07-13 05:59] LABS: BASOPHILS # (AUTO) 0.1 10^3/uL (0.0-0.1); HEMATOCRIT 25 % (40-54); LYMPHOCYTES # (AUTO) 3.1 10^3/uL (1.0-4.0); LYMPHOCYTES % (AUTO) 14 % (12-44); MEAN CORPUSCULAR HGB CONC 32 g/dL (32-36); MEAN CORPUSCULAR VOLUME 88 fL (80-99); MONOCYTES # (AUTO) 1.3 10^3/uL (0.0-1.0); MONOCYTES % (AUTO) 6 % (0-12); NEUTROPHILS # (AUTO) 18.2 10^3/uL (1.8-7.8); NEUTROPHILS % (AUTO) 79 % (42-75); WHITE BLOOD COUNT 23.1 10^3/uL (4.3-11.0)
[2022-07-13 06:12] LABS: PLATELET COUNT 1149 10^3/uL (130-400)
[2022-07-13] MEDS: inSUlin ASPART (NovoLOG) 1 UNIT/0.01 ML (CHARGE PER UNIT) SC SCH ×4 (06:13→20:47)
[2022-07-13 06:20] LABS: ALBUMIN 2.8 GM/DL (3.2-4.5)
[2022-07-13 06:21] LABS: POTASSIUM 5.4 MMOL/L (3.6-5.0)
[2022-07-13 06:22] LABS: CALCIUM 9.1 MG/DL (8.5-10.1)
[2022-07-13 06:23] LABS: TOTAL PROTEIN 8.5 GM/DL (6.4-8.2)
[2022-07-13 06:25] LABS: BILIRUBIN,TOTAL 0.4 MG/DL (0.1-1.0)
[2022-07-13 06:27] LABS: CREATININE SERUM 1.76 MG/DL (0.60-1.30)
--- NOTE | 2022-07-13 08:05 | Cardiology Progress Note ---
Subjective Date Seen by Provider: Jul 13, 2022 Time Seen by Provider: 08:03 Subjective/Events-last exam Patient was seen at bedside, laying down comfortably, lethargic. Denied any chest pain. The right foot appeared worse Review of Systems General: No Chills, No Night Sweats; Fatigue, Malaise; No Appetite, No Other HEENT: No Head Aches, No Visual Changes, No Eye Pain, No Ear Pain, No Dysphasia, No Sinus Congestion, No Post Nasal Drip, No Sore Throat, No Other Pulmonary: No Dyspnea, No Cough, No Pleuritic Chest Pain, No Other Cardiovascular: No: Chest Pain, Palpitations, Orthopnea, Paroxysmal Noc. Dyspnea, Edema, Lt Headedness, Other Objective-Cardiology Exam Last Set of Vital Signs Vital Signs 07/12/22 07/13/22 00:27 07:43 Temp 36.8 Pulse 93 Resp 18 B/P (MAP) 142/68 (92) Pulse Ox 93 O2 Delivery Room Air FiO2 21 I&O Intake and Output 07/13/22 00:00 Intake Total 1470 ml Output Total 2450 ml Balance -980 ml Intake Oral 1470 ml Output Urine Total 2450 ml Daily Weight Change No General: Alert HEENT: Atraumatic, PERRLA Neck: Supple, No JVD, No Thyromegaly Lungs: Clear to Auscultation, Normal Air Movement Heart: Regular Rate, Normal S1, Normal S2, Other (Systolic murmur) Abdomen: Normal Bowel Sounds, Soft, No Tenderness, No Hepatosplenomegaly, No Masses Extremities: No Tenderness/Swelling, Other (Gangrene on the right foot, toe is amputated) Skin: No Rashes, No Breakdown, No Significant Lesion Neuro: Normal Gait, Normal Speech, Strength at 5/5 X4 Ext, Normal Tone, Sensation Intact Psych/Mental Status: Mental Status NL, Mood NL Results Lab Laboratory Tests 07/13/22 05:45 A/P-Cardiology Admission Diagnosis PVD HTN HLP DM Assessment/Plan Peripheral vascular disease, Ischemic gangrene of the right toe. Nonhealing ulcer. Peripheral angiogram was done on July 03, 2022 with balloon angioplasty to the right SFA, right tibioperoneal trunk and right posterior tibial artery. The anterior tibial artery is occluded and not reconstructed. No intervention was done on it. Status post amputation of the right second toe done by Dr. Dahl on July 04, 2022 Continues to have slow healing to wound bed s/p amputation, will plan to repeat peripheral angiogram Arterial ultrasound was reviewed Status post recent CVA, was transferred from [facility] to [facility] in [place]. I will try to obtain copy of the hospital records Generalized malaise and weakness Hyperkalemia, was maintained on losartan as outpatient, I will d/c losartan at this time. Continue to monitor Hyperlipidemia, maintained on Lipitor 80 mg daily Hypertension, monitor blood pressure Diabetes mellitus, followed and managed by primary care physician Twelve-lead EKG showed sinus rhythm with low voltage, nonspecific T wave abnormality History of tobaccoism in the remote past. BRITTANY CARRERO MD Jul 13, 2022 08:04
[2022-07-13] MEDS: ENOXAPARIN 40 MG/0.4 ML (LOVENOX) SYR SQ SCH (08:09)
[2022-07-13] MEDS: amLODIPine 5 MG (NORVASC) TAB PO SCH (08:10)
[2022-07-13] MEDS: CLOPIDOGREL 75 MG (PLAVIX) TABLET PO SCH (08:10)
[2022-07-13] MEDS: MIRABEGRON 25 MG TAB (MYRBETRIQ) PO SCH (08:10)
[2022-07-13] MEDS: ASPIRIN E.C. 81 MG (ECOTRIN) TAB PO SCH (08:10)
[2022-07-13] MEDS ORDERED: NON-FORMULARY MEDICATION 1 EA EA (Mirabegron (Myrbetriq) 50 MG) PO SCH (09:00)
[2022-07-13] MEDS ORDERED: LIDOCAINE 1% INJ 20 ML VIAL ONE (10:09)
[2022-07-13] MEDS ORDERED: NS IV 1000 ML 1,000 ML ONE (10:10)
[2022-07-13] MEDS ORDERED: HEParin (CATH LAB) 2,000 ML IV ONE (10:10)
[2022-07-13] MEDS ORDERED: fentaNYL INJ 100 MCG/2 ML AMP ONE (10:12)
[2022-07-13] MEDS ORDERED: MIDAZOLAM 5 MG/5 ML (VERSED) VIAL ONE (10:12)
[2022-07-13] MEDS ORDERED: HEParin 1000 UNIT/ML (10ML VIAL) FOR BOLUS ONE (11:55)
[2022-07-13] MEDS ORDERED: NITRO DRIP 25000 MCG/D5W 250 ML IV ONE (11:57)
[2022-07-13] MEDS ORDERED: PATIENT MAY USE OWN MEDS, ALL PO SCH (12:45)
[2022-07-13] MEDS ORDERED: ASPIRIN 325 MG (5 GR) TABLET ONE (12:49)
[2022-07-13] MEDS ORDERED: CLOPIDOGREL 300 MG (PLAVIX) TABLET PO ONE (12:49)
--- NOTE | 2022-07-13 12:50 | Peripheral Report ---
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 After explaining the procedure to the patient, all pros and cons were explained, all questions were answered. The patient signed the consent and then he was placed on the cardiac catheterization laboratory. The patient was placed on the cardiac catheterization laboratory. Groin was prepped SL fashion local anesthesia was used. Sheath placed in the left femoral artery, rim catheter was used and I did runoff to the right lower extremity then I exchanged the catheter and used UF catheter advanced this torque wire then placed a straight catheter and advanced the Storq wire down to the popliteal artery remove the wire and the catheter and advanced 70 cm 6 Mongolian sheath down to the mid right SFA. Patient has total occlusion of the right posterior tibial artery distally, the anterior tibial artery has been chronically occluded. The peroneal artery has good flow. I advanced a command 14 wire down the artery and did multiple balloon angioplasty then I placed mini 18 and did manual injection in the posterior tibial artery we ballooned the whole artery. Final results were excellent. Angiogram showed mild disease at the right common femoral artery, mild disease at the right SFA and right popliteal artery, total occlusion of the anterior tibial artery, slow flow in the peroneal artery and posterior tibial artery. Below the arch there is are no vessels, total occlusion below the arch. FINDINGS: Right common iliac and common femoral artery are patent Right SFA is patent Right popliteal artery is patent with mild disease Right anterior tibial artery is chronically occluded Right posterior tibial artery post intervention is patent down to the ankle, below the ankle there are no vessels. Right peroneal artery is patent down to the ankle Balloon angioplasty was done to the posterior tibial artery multiple segment wit h significant improvement. CONCLUSIONS: 1. Total occlusion of the anterior tibial artery. Chronic not amendable to intervention 2. Subtotal occlusion of the posterior tibial artery with successful balloon angioplasty with excellent results. 3. Total occlusion of all the vessels below the ankle. Very small arteries not amendable to intervention DISCUSSION AND RECOMMENDATIONS: Continue maximizing medical therapy and consider amputation below the knee or at the level of the foot Anesthesia Type: Conscious Sedation Estimated blood loss (mL): 25 ml Contrast Amount: 80 ml Total Radiation Dose: 282 mGy Post-Procedure Diagnosis Post-operative diagnosis: Gangrene of the foot Critical limb ischemia Peripheral arterial disease Hypertension Thrombocytosis BRITTANY CARRERO MD Jul 13, 2022 12:50
--- NOTE | 2022-07-13 15:15 | Progress Note - Surgery ---
Subjective Date Seen by a Provider: Jul 13, 2022 Time Seen by a Provider: 07:30 Subjective/Events-last exam Patient laying in bed. Pain controlled. No new complaints. Denies n/v fever sweats chills shortness of breath or chest pain. Objective Exam Vital Signs Date Time Temp Pulse Resp B/P (MAP) Pulse Ox O2 Delivery O2 Flow Rate FiO2 07/13/22 14:30 73 11 152/86 (108) 99 Nasal Cannula 2.00 07/13/22 14:15 74 24 149/81 (103) 94 Nasal Cannula 2.00 07/13/22 14:00 75 12 151/83 (105) 98 Nasal Cannula 2.00 07/13/22 13:45 78 16 168/86 (113) 99 Nasal Cannula 2.00 07/13/22 13:30 76 9 168/78 (108) 96 Nasal Cannula 2.00 07/13/22 13:15 75 14 134/81 (98) 84 Nasal Cannula 2.00 07/13/22 13:00 36.3 77 137/72 (93) Nasal Cannula 2.00 07/13/22 11:31 37.0 87 18 141/73 (95) 95 Room Air 07/13/22 08:00 Room Air 07/13/22 07:43 36.8 93 18 142/68 (92) 93 Room Air 07/13/22 03:53 36.8 90 18 182/84 (116) 93 Room Air 07/13/22 00:26 36.9 88 18 182/79 (113) 95 Room Air 07/12/22 20:00 Room Air 07/12/22 19:51 36.3 84 20 116/55 (75) 94 Room Air 07/12/22 19:22 91 Room Air 07/12/22 15:49 35.8 86 20 172/79 (110) 94 Room Air 07/12/22 15:31 100 Room Air I & O 07/13/22 07:00 Intake Total 1270 ml Output Total 2250 ml Balance -980 ml Capillary Refill : Less Than 3 Seconds General Appearance: No Apparent Distress, Chronically ill HEENT: PERRL/EOMI Neck: Full Range of Motion, Tender Lateral (submandibular tenderness) Respiratory: Chest Non Tender, No Accessory Muscle Use, No Respiratory Distress Cardiovascular: Regular Rate, Rhythm, No Murmur Gastrointestinal: non tender, soft; No distended, No guarding, No rebound, No tenderness Extremity: Non Tender, No Calf Tenderness, No Pedal Edema, Slow Capillary Refill, Other (RLE 2nd digit amputation with surrounding erythema dusky appearance, dry dorsal/and plantar surface appears superficial) Neurologic/Psychiatric: Alert, Disoriented (oriented to self only) Skin: Normal Color, Warm/Dry, Other (dusky appearance to plantar aspect of RLE 3rd digit extending into metatarsal region of foot; he has necrotic discoloration at the base of the second third and fourth toe with erythema exten ding to the posterior plantar surface. Surgical wound appears clean. Packing was in place. No purulent drainage, no foul smell. No significant erythema over the dorsum of the foot suggestive of cellulitis) Lymphatic: No Adenopathy Results Lab Laboratory Tests 07/12/22 15:52: Glucometer 220H 07/12/22 20:24: Glucometer 214H 07/13/22 05:45: White Blood Count 23.1H, Red Blood Count 2.88L, Hemoglobin 8.1L, Hematocrit 25L, Mean Corpuscular Volume 88, Mean Corpuscular Hemoglobin 28, Mean Corpuscular Hemoglobin Concent 32, Red Cell Distribution Width 13.6, Platelet Count 1149*H, Mean Platelet Volume 8.8L, Immature Granulocyte % (Auto) 1, Neutrophils (%) (Auto) 79H, Lymphocytes (%) (Auto) 14, Monocytes (%) (Auto) 6, Eosinophils (%) (Auto) 1, Basophils (%) (Auto) 0, Neutrophils # (Auto) 18.2H, Lymphocytes # (Auto) 3.1, Monocytes # (Auto) 1.3H, Eosinophils # (Auto) 0.2, Basophils # (Auto) 0.1, Immature Granulocyte # (Auto) 0.2H, Percent Immature Platelet Fraction 0.8, Sodium Level 133L, Potassium Level 5.4H, Chloride Level 101, Carbon Dioxide Level 22, Anion Gap 10, Blood Urea Nitrogen 22H, Creatinine 1.76H , Estimat Glomerular Filtration Rate 41, BUN/Creatinine Ratio 13, Glucose Level 199H, Calcium Level 9.1, Corrected Calcium 10.1, Total Bilirubin 0.4, Aspartate Amino Transf (AST/SGOT) 65H, Alanine Aminotransferase (ALT/SGPT) 51, Alkaline Phosphatase 405H, Total Protein 8.5H, Albumin 2.8L 07/13/22 05:46: Glucometer 196H 07/13/22 11:12: Glucometer 154H Microbiology 07/12/22 Gram Stain - Final, Resulted 07/12/22 Wound Culture - Preliminary, Resulted Probable Enterococcus Species Probable Staph Aureus Assessment/Plan Assessment/Plan Assessment/Plan S/P Right 2nd toe amputation with nonhealing wounds Hx of peripheral vascular disease Critical limb ischemia to right toes Ischemic changes to the third toe and skin to the dorsum and plantar portion of the foot Continue wound care to right foot I think ischemic portion of superficial at this time. Also not wet so we will continue to monitor the area before proceeding with any surgical intervention. If does have a change he may need amputation. Continue with medical management this time. Continue current management. KATTY PACK DO Jul 13, 2022 15:15
--- NOTE | 2022-07-13 18:32 | Progress Note ---
CLARY RODRIGUES 07/13/22 183: Subjective Subjective/Events-last exam Patient initially admitted for gangrene of the right foot and abdominal pain. Since admission, his abdominal pain has abetted. Today, he shook his head when I asked if he had abdominal pain, foot pain, headache and dizziness. He was unable to answer other questions, but I was able to complete his physical exam (see objective). Objective Exam Last Set of Vital Signs Vital Signs Date Time Temp Pulse Resp B/P (MAP) Pulse Ox O2 Delivery O2 Flow Rate FiO2 07/13/22 17:57 75 07/13/22 16:30 8 130/67 (88) 96 Nasal Cannula 2.00 07/13/22 15:48 36.3 07/12/22 00:27 21 Capillary Refill : Less Than 3 Seconds I&O Intake and Output 07/13/22 00:00 Intake Total 1470 ml Output Total 2450 ml Balance -980 ml Intake Oral 1470 ml Output Urine Total 2450 ml Daily Weight Change No General: Other (oriented to self only. ) Lungs: Clear to Auscultation Heart: Regular Rate Abdomen: Normal Bowel Sounds, No Tenderness, No Masses Extremities: Other (dislocoration of the base of the 2nd and 3rd digit of the right foot.) Psych/Mental Status: Other (patient was unable to answer most question. ) Results/Procedures Lab Laboratory Tests 07/12/22 20:24: Glucometer 214H 07/13/22 05:45: White Blood Count 23.1H, Red Blood Count 2.88L, Hemoglobin 8.1L, Hematocrit 25L, Mean Corpuscular Volume 88, Mean Corpuscular Hemoglobin 28, Mean Corpuscular Hemoglobin Concent 32, Red Cell Distribution Width 13.6, Platelet Count 1149*H, Mean Platelet Volume 8.8L, Immature Granulocyte % (Auto) 1, Neutrophils (%) (Auto) 79H, Lymphocytes (%) (Auto) 14, Monocytes (%) (Auto) 6, Eosinophils (%) (Auto) 1, Basophils (%) (Auto) 0, Neutrophils # (Auto) 18.2H, Lymphocytes # (Auto) 3.1, Monocytes # (Auto) 1.3H, Eosinophils # (Auto) 0.2, Basophils # (Auto) 0.1, Immature Granulocyte # (Auto) 0.2H, Percent Immature Platelet Fraction 0.8, Sodium Level 133L, Potassium Level 5.4H, Chloride Level 101, Carbon Dioxide Level 22, Anion Gap 10, Blood Urea Nitrogen 22H, Creatinine 1.76H , Estimat Glomerular Filtration Rate 41, BUN/Creatinine Ratio 13, Glucose Level 199H, Calcium Level 9.1, Corrected Calcium 10.1, Total Bilirubin 0.4, Aspartate Amino Transf (AST/SGOT) 65H, Alanine Aminotransferase (ALT/SGPT) 51, Alkaline Phosphatase 405H, Total Protein 8.5H, Albumin 2.8L 07/13/22 05:46: Glucometer 196H 07/13/22 11:12: Glucometer 154H 07/13/22 15:48: Glucometer 133H Microbiology 07/12/22 Gram Stain - Final, Resulted 07/12/22 Wound Culture - Preliminary, Resulted Probable Enterococcus Species Probable Staph Aureus Assessment/Plan Assessment/Plan Reason for Inpatient Admission: Patient admitted for non-healing gangrene of the right foot and abdominal pain of 1-week duration. Assessment & Plan Ischemia of right toes / PVD. - 1 week S/P amputation of right second digit. - The wound is still in the process of healing, and skin color around the base of the second and third digit are consistent with that of ischemia. - CTA done today by Dr. Agee showed severe occlusive disease of the right foot. - aspirin, clopidgrel for DVT prophylaxis. Thrombocytosis History of CVA: aspirin, clodpidgrel Insulin depended DM Type II / Gastroparesis: - long-term use of insulin aspart and insulin degludec - HbAIC is pending. - metoclopramide for gastroparesis Hyperlipidemia: - restart atorvostatin HTN: - losartan, amlodipine: Hypothyroidism: - restart levothyroxine Plan is to continue current management and consider amputation is ischemia worsens. ARIELLE DE LA CRUZ MD 07/13/221943: Subjective Review of Systems Pulmonary: No Dyspnea, No Cough Cardiovascular: No: Chest Pain, Palpitations Gastrointestinal: No: Abdominal Pain Neurological: Weakness, Incoordination Objective Exam General: Alert, No Acute Distress Lungs: Clear to Auscultation, Normal Air Movement Heart: Regular Rate, No Murmurs Abdomen: Normal Bowel Sounds, Soft, No Tenderness, No Masses Extremities: Other (dislocoration of the base of the 2nd and 3rd digit of the right foot.) Supervisory-Addendum Brief Verification & Attestation Participated in pt care: history, physical Personally performed: exam, history Care discussed with: Medical Student Procedures: n/a Verification and Attestation of Medical Student E/M Service A medical student performed and documented this service in my presence. I reviewed and verified all information documented by the medical student and made modifications to such information, when appropriate. I personally performed the physical exam and medical decision making. Arielle De La Cruz, Jul 13, 2022,19:41 Ischemic right foot and toes Severe PVD Non Healing foot wound Recent right toe infection - Wound care and Cardiology consulted, Recent angiogram with severe and occlusive disease, DAPT, Lovenox - Dr uF to take patient to angiogram tomorrow -07/13: Angiogram today again showed total occlusion, ballooned several areas, will continue to monitor Thrombocytosis -07/13: Continue to monitor IDDM - A1c pending, SSI - 07/13: A1c 8.9 Hypothyroidism - Restart home meds HLD - Restart statin h/o CVA Hyperkalemia - Stopped CLARY DENNIS Jul 13, 2022 18:32 ARIELLE DE LA CRUZ MD Jul 13, 2022 19:44
[2022-07-13] MEDS: HYDROcodone/APAP 5 MG/325 MG (LORTAB) TAB PO PRN (21:30)
[2022-07-13] MEDS: PATCH REMOVAL TP SCH (23:59)
[2022-07-14] VITALS (16 sets, daily range): BP systolic 79–191; BP diastolic 55–96
[2022-07-14] MEDS: inSUlin ASPART (NovoLOG) 1 UNIT/0.01 ML (CHARGE PER UNIT) SC SCH ×4 (05:15→21:47)
[2022-07-14] MEDS: NITROGLYCERIN 2% OINT 1 GM UNIT DOSE PACKET TOP SCH ×4 (05:20→21:34)
[2022-07-14] MEDS: PIPERACILLIN SODIUM/TAZOBACTAM 4.5 GM in NS (IVPB) 100 ML IV SCH ×3 (05:21→20:37)
[2022-07-14] MEDS: CATHETER FLUSH 10 ML SYR IVP SCH ×3 (05:21→20:32)
[2022-07-14] MEDS: NS IV 1000 ML 1,000 ML IV SCH ×2 (05:21→11:47)
[2022-07-14] MEDS: LEVOTHYROXINE 125 MCG (LEVOTHROID) TABLET PO SCH (05:24)
[2022-07-14 06:27] LABS: BASOPHILS # (AUTO) 0.1 10^3/uL (0.0-0.1); BASOPHILS % (AUTO) 1 % (0-10); LYMPHOCYTES % (AUTO) 16 % (12-44); MEAN PLATELET VOLUME 9.2 fL (9.0-12.2)
[2022-07-14 06:29] LABS: EOSINOPHILS # (AUTO) 0.3 10^3/uL (0.0-0.3); EOSINOPHILS % (AUTO) 1 % (0-10); HEMATOCRIT 21 % (40-54); LYMPHOCYTES # (AUTO) 3.4 10^3/uL (1.0-4.0); MEAN CORPUSCULAR HEMOGLOBIN 28 pg (25-34); MEAN CORPUSCULAR HGB CONC 31 g/dL (32-36); MEAN CORPUSCULAR VOLUME 90 fL (80-99); MONOCYTES # (AUTO) 1.4 10^3/uL (0.0-1.0); MONOCYTES % (AUTO) 7 % (0-12); NEUTROPHILS # (AUTO) 15.6 10^3/uL (1.8-7.8); NEUTROPHILS % (AUTO) 74 % (42-75)
[2022-07-14 06:41] LABS: HEMOGLOBIN 6.7 g/dL (13.3-17.7); PLATELET COUNT 1139 10^3/uL (130-400)
[2022-07-14 06:42] LABS: ALBUMIN 2.7 GM/DL (3.2-4.5); POTASSIUM 4.8 MMOL/L (3.6-5.0)
[2022-07-14 06:43] LABS: CALCIUM 9.3 MG/DL (8.5-10.1)
[2022-07-14 06:44] LABS: TOTAL PROTEIN 8.4 GM/DL (6.4-8.2)
[2022-07-14 06:46] LABS: BILIRUBIN,TOTAL 0.3 MG/DL (0.1-1.0)
[2022-07-14 06:48] LABS: CREATININE SERUM 1.68 MG/DL (0.60-1.30)
--- NOTE | 2022-07-14 07:43 | Progress Note - Surgery ---
KEVIN MCCARTY 07/14/22 0743: Subjective Date Seen by a Provider: Jul 14, 2022 Time Seen by a Provider: 07:40 Subjective/Events-last exam History is limited due to patient being a poor historian. Patient reports no pain but states that he would like to go home. Area around the site of right 2nd toe amputation is more ischemic than yesterday. Review of Systems General: No Chills, No Night Sweats HEENT: No Head Aches, No Visual Changes, No Eye Pain Pulmonary: No Dyspnea, No Cough Cardiovascular: No: Chest Pain, Palpitations Gastrointestinal: No: Nausea, Vomiting Genitourinary: No Dysuria, No Frequency Musculoskeletal: No: shoulder pain, back pain Neurological: No: Weakness, Numbness Objective Exam Vital Signs Date Time Temp Pulse Resp B/P (MAP) Pulse Ox O2 Delivery O2 Flow Rate FiO2 07/14/22 04:00 36.0 78 16 160/67 (98) 98 Nasal Cannula 2.00 07/14/22 01:00 78 07/13/22 23:59 36.8 80 18 166/76 (106) 99 Nasal Cannula 3.00 07/13/22 20:00 Nasal Cannula 2.00 07/13/22 19:18 77 07/13/22 19:16 35.6 77 16 112/67 (82) 98 Nasal Cannula 3.00 07/13/22 17:57 75 07/13/22 16:30 72 8 130/67 (88) 96 Nasal Cannula 2.00 07/13/22 16:00 71 19 124/75 (91) 91 Nasal Cannula 2.00 07/13/22 15:48 36.3 07/13/22 15:30 70 15 132/76 (94) 99 Nasal Cannula 2.00 07/13/22 15:00 73 13 123/73 (90) 99 Nasal Cannula 2.00 07/13/22 14:45 73 13 139/80 (99) 98 Nasal Cannula 2.00 07/13/22 14:30 73 11 152/86 (108) 99 Nasal Cannula 2.00 07/13/22 14:15 74 24 149/81 (103) 94 Nasal Cannula 2.00 07/13/22 14:00 75 12 151/83 (105) 98 Nasal Cannula 2.00 07/13/22 13:45 78 16 168/86 (113) 99 Nasal Cannula 2.00 07/13/22 13:30 76 9 168/78 (108) 96 Nasal Cannula 2.00 07/13/22 13:15 75 14 134/81 (98) 84 Nasal Cannula 2.00 07/13/22 13:09 77 07/13/22 13:00 36.3 77 137/72 (93) Nasal Cannula 2.00 07/13/22 11:31 37.0 87 18 141/73 (95) 95 Room Air 07/13/22 08:00 Room Air 07/13/22 07:43 36.8 93 18 142/68 (92) 93 Room Air I & O 07/14/22 07:00 Intake Total 1860 ml Output Total 2250 ml Balance -390 ml Capillary Refill : Less Than 3 Seconds General Appearance: WD/WN, Anxious, Chronically ill HEENT: PERRL/EOMI, Normal ENT Inspection Neck: Full Range of Motion, Supple, Tender Lateral (submandibular tenderness) Respiratory: Chest Non Tender, No Accessory Muscle Use, No Respiratory Distress Cardiovascular: Regular Rate, Rhythm, No Murmur Gastrointestinal: non tender, soft; No distended, No guarding, No rebound, No tenderness Extremity: Non Tender, No Calf Tenderness, No Pedal Edema, Slow Capillary Refill, Other (RLE 2nd digit amputation with surrounding erythema dusky appearance, dry dorsal/and plantar surface appears superficial) Neurologic/Psychiatric: Alert, Disoriented (oriented to self only) Skin: Normal Color, Warm/Dry, Other (dusky appearance to plantar aspect of RLE 3rd digit extending into metatarsal region of foot; he has necrotic discoloration at the base of the second third and fourth toe with erythema extending to the posterior plantar surface. Surgical wound appears clean. Packing was in place. No purulent drainage, no foul smell. No significant erythema over the dorsum of the foot suggestive of cellulitis) Lymphatic: No Adenopathy Results Lab Laboratory Tests 07/13/22 11:12: Glucometer 154H 07/13/22 15:48: Glucometer 133H 07/13/22 20:10: Glucometer 171H 07/14/22 05:13: Glucometer 145H 07/14/22 05:39: White Blood Count 21.0H, Red Blood Count 2.39L, Hemoglobin 6.7*L, Hematocrit 21L , Mean Corpuscular Volume 90, Mean Corpuscular Hemoglobin 28, Mean Corpuscular Hemoglobin Concent 31L, Red Cell Distribution Width 13.6, Platelet Count 1139*H, Mean Platelet Volume 9.2, Immature Granulocyte % (Auto) 1, Neutrophils (%) (Auto) 74, Lymphocytes (%) (Auto) 16, Monocytes (%) (Auto) 7, Eosinophils (%) (Auto) 1, Basophils (%) (Auto) 1, Neutrophils # (Auto) 15.6H, Lymphocytes # (Aut o) 3.4, Monocytes # (Auto) 1.4H, Eosinophils # (Auto) 0.3, Basophils # (Auto) 0.1, Immature Granulocyte # (Auto) 0.2H, Percent Immature Platelet Fraction 1.2, Sodium Level 137, Potassium Level 4.8, Chloride Level 105, Carbon Dioxide Level 21, Anion Gap 11, Blood Urea Nitrogen 22H, Creatinine 1.68H, Estimat Glomerular Filtration Rate 43, BUN/Creatinine Ratio 13, Glucose Level 145H, Calcium Level 9.3, Corrected Calcium 10.3H, Total Bilirubin 0.3, Aspartate Amino Transf (AST/SGOT) 34, Alanine Aminotransferase (ALT/SGPT) 38, Alkaline Phosphatase 329H , Total Protein 8.4H, Albumin 2.7L Microbiology 07/12/22 Gram Stain - Final, Resulted 07/12/22 Wound Culture - Preliminary, Resulted Probable Enterococcus Species Probable Staph Aureus Assessment/Plan Assessment/Plan Assessment/Plan S/P Right 2nd toe amputation with nonhealing wounds Hx of peripheral vascular disease Critical limb ischemia to right toes Ischemic changes to the third toe and skin to the dorsum and plantar portion of the foot Continue wound care to right foot I think ischemic portion of superficial at this time. Also not wet so we will continue to monitor the area before proceeding with any surgical intervention. If does have a change he may need amputation. Continue with medical management this time. Continue current management. KATTY PACK DO 07/14/22 1147: Subjective Subjective/Events-last exam Patient and patient at bedside. Right foot worsening. More area of ischemia. Discussed with Dr. Redd and she and Dr. Fu recommending amputation. No other complaints. Pain controlled. Denies n/v fever sweats chills shortness of breath or chest pain. Objective Exam General Appearance: No Apparent Distress, Chronically ill HEENT: PERRL/EOMI, Normal ENT Inspection Neck: Full Range of Motion, Supple Respiratory: Chest Non Tender, No Accessory Muscle Use, No Respiratory Distress Cardiovascular: Regular Rate, Rhythm, No JVD Gastrointestinal: non tender, soft Extremity: Other (RLE 2nd digit amputation with surrounding erythema ishcemic areas dorsal/and plantar surface worsening in appearance) Neurologic/Psychiatric: Alert, Disoriented (oriented to self only) Skin: Warm/Dry, Other (worsening ischemic appearance to right foot) Lymphatic: No Adenopathy Assessment/Plan Assessment/Plan Assessment/Plan S/P Right 2nd toe amputation with nonhealing wounds Hx of peripheral vascular disease Critical limb ischemia to right toes Ischemic changes to the third toe and skin to the dorsum and plantar portion of the foot worsening worsening ischemic changes and poor vascular supply distal to ankle we discussed risks and benefits of right below knee amputation and they wish to proceed on antplatelets so will hold and give platelets prior to procedure drop in hgb and being transfused NPO to or today. Supervisory-Addendum Brief Verification & Attestation Participated in pt care: history, MDM, physical Personally performed: exam, history, MDM, supervision of care Care discussed with: Medical Student Procedures: n/a Results interpretation: Verified all documentation Verification and Attestation of Medical Student E/M Service A medical student performed and documented this service in my presence. I reviewed and verified all information documented by the medical student and made modifications to such information, when appropriate. I personally performed the physical exam and medical decision making. Katty Pack Jul 14, 2022,11:47 KEVIN MCCARTY Jul 14, 2022 07:43 KATTY PACK DO Jul 14, 2022 11:47
[2022-07-14] MEDS ORDERED: NS IV 500 ML 500 ML IV SCH (08:00)
[2022-07-14] MEDS: amLODIPine 5 MG (NORVASC) TAB PO SCH (08:26)
[2022-07-14] MEDS: CLOPIDOGREL 75 MG (PLAVIX) TABLET PO SCH (08:26)
[2022-07-14] MEDS: ENOXAPARIN 40 MG/0.4 ML (LOVENOX) SYR SQ SCH (08:26)
[2022-07-14] MEDS: MIRABEGRON 25 MG TAB (MYRBETRIQ) PO SCH (08:26)
[2022-07-14] MEDS: ASPIRIN E.C. 81 MG (ECOTRIN) TAB PO SCH (08:26)
--- NOTE | 2022-07-14 08:56 | Cardiology Progress Note ---
Subjective Date Seen by Provider: Jul 14, 2022 Time Seen by Provider: 08:53 Subjective/Events-last exam Patient was seen at bedside, laying down comfortably, no new complaint. Asking to go home Review of Systems General: No Chills, No Night Sweats; Fatigue; No Malaise, No Appetite, No Other HEENT: No Head Aches, No Visual Changes, No Eye Pain, No Ear Pain, No Dysphas ia, No Sinus Congestion, No Post Nasal Drip, No Sore Throat, No Other Pulmonary: No Dyspnea, No Cough, No Pleuritic Chest Pain, No Other Cardiovascular: No: Chest Pain, Palpitations, Orthopnea, Paroxysmal Noc. Dyspnea, Edema, Lt Headedness, Other Objective-Cardiology Exam Last Set of Vital Signs Vital Signs 07/12/22 07/14/22 00:27 08:00 Temp 36.6 Pulse 85 Resp 16 B/P (MAP) 137/63 (87) Pulse Ox 97 O2 Delivery Nasal Cannula O2 Flow Rate 2.00 FiO2 21 I&O Intake and Output 07/14/22 00:00 Intake Total 1760 ml Output Total 2400 ml Balance -640 ml Intake Oral 710 ml IV Total 1050 ml Output Urine Total 2400 ml # Bowel Movements 1 General: Alert, No Acute Distress HEENT: Atraumatic, PERRLA Neck: Supple, No JVD, No Thyromegaly Lungs: Clear to Auscultation, Normal Air Movement Heart: Regular Rate, Normal S1, Normal S2, No Murmurs Abdomen: Normal Bowel Sounds, Soft, No Tenderness, No Masses Extremities: Other (dislocoration of the base of the 2nd and 3rd digit of the right foot.) Skin: No Rashes, No Breakdown, No Significant Lesion Neuro: Normal Gait, Normal Speech, Strength at 5/5 X4 Ext, Normal Tone, Sensation Intact Psych/Mental Status: Other (patient was unable to answer most question. ) Results Lab Laboratory Tests 07/14/22 05:39 A/P-Cardiology Admission Diagnosis PVD HTN HLP DM Assessment/Plan Peripheral vascular disease, Ischemic gangrene of the right toe. Nonhealing ulcer. Peripheral angiogram was done on July 03, 2022 with balloon angioplasty to the right SFA, right tibioperoneal trunk and right posterior tibial artery. The anterior tibial artery is occluded and not reconstructed. No intervention was done on it. Status post amputation of the right second toe done by Dr. Dahl on July 04, 2022 Peripheral angiogram was done again on July 13, 2022, has occlusion of the distal posterior tibial artery, I was able to do balloon angioplasty to the posterior tibial artery down to the ankle, the peroneal artery is open. There is a total occlusion at the ostium of the anterior tibial artery that does not reconstruct with collaterals. At the level of the foot there were no vasculature noted. I tried with nitroglycerin injection without any improvement. I am concerned that patient will require amputation, recommend evaluation with podiatry Anemia, probably secondary to chronic disease, received large amount of IV fluid periprocedure. I will transfuse 1 unit of packed RBCs and monitor H&H Status post recent CVA, was transferred from [facility] to [facility] in [place]. Doing better at this time. Managed by medical team. Clinically stable Generalized malaise and weakness Hyperkalemia, was maintained on losartan as outpatient, I will d/c losartan at this time. Intolerant to CAIO inhibitor and/or ARB due to hyperkalemia Hyperlipidemia, maintained on Lipitor 80 mg daily Hypertension, monitor blood pressure Diabetes mellitus, followed and managed by primary care physician Twelve-lead EKG showed sinus rhythm with low voltage, nonspecific T wave abnormality History of tobaccoism in the remote past. BRITTANY CARRERO MD Jul 14, 2022 08:56
[2022-07-14] MEDS ORDERED: ASPIRIN E.C. 81 MG (ECOTRIN) TAB PO SCH (09:00)
[2022-07-14] MEDS ORDERED: CLOPIDOGREL 75 MG (PLAVIX) TABLET PO SCH (09:00)
--- NOTE | 2022-07-14 09:36 | Wound Care Assessment ---
Wound Care Assessment Date Seen by Provider: Jul 14, 2022 Time Seen by Provider: 09:15 Chief Complaint Post amputation wound HPI Jah is a 71yo M with a past medical history of diabetes mellitus, peripheral arterial disease, and amputation of R. 2 phalange. He was seen in wound care [facility] and diagnosed with gangrene of the second phalanx of the right foot. He had angioplasty performed in the right leg on 07/03/22 and an amputation of the phalanx was done 07/04/22. Outpatient MRI confirmed osteomyelitis of 2nd digit as well. Upon initial presentation for angioplasty he was found to have significantly elevated WBC. Bone culture was positive for MSSA, enterococcus and many anaerobes as well. With persistent elevation in WBC, I do think coverage for these organisms is reasonable. It appears he was discharged on cefdinir and linezolid. He is now appropriately covered with Zosyn. He does also have significant anemia and thrombocythemia as well as protein energy malnutrition. His most recent A1C was 9.4 as well. Jah did recently have a stroke and on initial presentation to office was noted to have blistering of digits on bilateral upper extremities as well. Upper extremity segmental studies as outpatient were normal and this is nearly resolved today. Clot showers vs. microvascular disease due to inflammatory process/vasospasm is a consideration. Follow up arterial doppler this stay with significant distal SFA stenosis. Dr. Fu performed another balloon angioplasty on 07/13/22 and was able to restore blood flow down to the patients ankle but there was no blood flow to the foot. Dr. Fu has suggested that podiatry or surgery be consulted to discuss possible amputation. Per nurses report, the patient has been removing his dressings during the night. Gram staining of the patient's amputation site was positive for E. faecalis and MSSA. Patient was awake and eating breakfast during the interview. He is a very poor historian. He states he is not having any pain in his lower extremities. Denies neuropathy and weakness. The possibility of having an amputation was discussed with the patient and his . Patient states he just wants to have the right foot removed so that he can go home. The dusky discoloration to his plantar foot is worse today with degloving of 3rd digit. 3rd digit has worsening cyanotic changes. 4th digit has more pallor today and dusky discoloration has started to develop. Discussion with Dr. Patrick with plans for BKA in near future and rehab vs. penitentiary upon discharge appropriately. Past Medical History: Admits Diabetes Type II, Admits Peripheral Artery Disease Smoking Status: Former Smoker Recreational Drug Use: No Alcohol Use: Denies Use Review of Systems General: No Chills, No Fatigue; Appetite HEENT: No Head Aches, No Sinus Congestion, No Sore Throat Pulmonary: No Dyspnea, No Cough Cardiovascular: No: Chest Pain Gastrointestinal: No: Nausea, Vomiting, Abdominal Pain, Diarrhea, Constipation Genitourinary: No Dysuria Musculoskeletal: No: leg pain, foot pain Neurological: No: Weakness, Numbness Exam Vital Signs Date Time Temp Pulse Resp B/P (MAP) Pulse Ox O2 Delivery O2 Flow Rate FiO2 07/14/22 08:00 36.6 85 16 137/63 (87) 97 Nasal Cannula 2.00 07/12/22 00:27 21 Capillary Refill : Less Than 3 Seconds General Appearance: no apparent distress HEENT: PERRL/EOMI Neck: full range of motion, supple Extremities: normal range of motion, non-tender, normal inspection, no pedal edema, no calf tenderness, slow capillary refill (Right foot has no capillary refill in multiple phalanges) Neurologic/Psychiatric: normal mood/affect, disoriented x 3 (Patient not oriented to situation) Skin: other (Dusky discoloration of dorsal foot and third metatarsal) Skin Problem Location: lower extremities (Right foot) The wound is on the patient's right foot where he had his second phalange amputated and is measuring 19x4.5x1.4 with bone still visible. There is a small amount of clear exudate, flat margins, no granulation, large amount of necrotic tissue with slough and escar, and no epithelialization. On the right foot,the dusky discoloration of plantar foot and third metatarsal has spread further. The fourth phalange is more pale appearing today with poor capillary refill. The fifth and first phalange now has dusky discoloration. Results Laboratory Tests 07/13/22 11:12: Glucometer 154H 07/13/22 15:48: Glucometer 133H 07/13/22 20:10: Glucometer 171H 07/14/22 05:13: Glucometer 145H 07/14/22 05:39: White Blood Count 21.0H, Red Blood Count 2.39L, Hemoglobin 6.7*L, Hematocrit 21L , Mean Corpuscular Volume 90, Mean Corpuscular Hemoglobin 28, Mean Corpuscular Hemoglobin Concent 31L, Red Cell Distribution Width 13.6, Platelet Count 1139*H, Mean Platelet Volume 9.2, Immature Granulocyte % (Auto) 1, Neutrophils (%) (Auto) 74, Lymphocytes (%) (Auto) 16, Monocytes (%) (Auto) 7, Eosinophils (%) (Auto) 1, Basophils (%) (Auto) 1, Neutrophils # (Auto) 15.6H, Lymphocytes # (Auto) 3.4, Monocytes # (Auto) 1.4H, Eosinophils # (Auto) 0.3, Basophils # ( Auto) 0.1, Immature Granulocyte # (Auto) 0.2H, Percent Immature Platelet Fraction 1.2, Sodium Level 137, Potassium Level 4.8, Chloride Level 105, Carbon Dioxide Level 21, Anion Gap 11, Blood Urea Nitrogen 22H, Creatinine 1.68H, Estimat Glomerular Filtration Rate 43, BUN/Creatinine Ratio 13, Glucose Level 145H, Calcium Level 9.3, Corrected Calcium 10.3H, Total Bilirubin 0.3, Aspartate Amino Transf (AST/SGOT) 34, Alanine Aminotransferase (ALT/SGPT) 38, Alkaline Phosphatase 329H, Total Protein 8.4H, Albumin 2.7L Microbiology 07/12/22 Gram Stain - Final, Resulted 07/12/22 Wound Culture - Preliminary, Resulted Enterococcus faecalis Probable Staph Aureus Assessment/Plan/Dx Assessment: 1. Dry gangrene R. 2 digit s/p amputation 2. PAD 3. DM2 (poor control) 4. h/o CVA with gait instability 5. CKD stage 3 6. Leukocytosis with recent h/o osteomyelitis (s/p amputation) 7. Thrombocytosis 8. PEM 9. Vitamin D deficiency 10. Anemia Plan: 1. Cleanse wound daily with Vashe. Xeroform was placed on his wound and then wrapped in gauze/roller gauze and secured with medipore tape. 2. Defer decision on amputation to Dr. Patrick's capable hands. Agree with his input and plan for discharge following surgery. We will continue to follow until healed (surgically or otherwise) 3. Patient will likely need to be admitted to a rehabilitation center (vs. nursing facility) after the amputation 3. Good glycemic control needed. Per primary team 4. On third day of Zosyn antibiotics which covers E. faecalis and MSSA, patient's WBC continues to be elevated. Further evaluation of persistent leukocytosis deferred to primary team. 5. Despite having started antibiotics, the patient has continued to have leukocytosis and thrombocytosis. Considerations for infection (acute phase reactant) vs. other etiology (malignancy or inflammatory) in differential 6. Defer anemia/need for transfusion to primary and surgical teams 7. Glucerna Supervisory-Addendum Brief Verification & Attestation Participated in pt care: history, MDM, physical Personally performed: exam, history, supervision of care Care discussed with: Medical Student, other (Surgeon and cardiology) Procedures: n/a Results interpretation: Verified all documentation I have edited and agree with the above note. MD IVETT Soler LEAH Jul 14, 2022 09:36 ADELE ESPARZA MD Jul 14, 2022 11:33
[2022-07-14] MEDS: HYDROcodone/APAP 5 MG/325 MG (LORTAB) TAB PO PRN ×2 (12:28→20:37)
--- NOTE | 2022-07-14 12:37 | Progress Note - Hospitalist ---
GURJIT BONILLA 07/14/22 1237: Subjective HPI/CC On Admission Date Seen by Provider: Jul 14, 2022 Time Seen by Provider: 12:30 Subjective/Events-last exam Patient with worsening ischemia to the right lower extremity. Today patient was scheduled for amputation of right lower limb by surgeon Dr. Patrick. He is complaining of persistent cough with congestion. Has some shortness of breath, but is on oxygen. Denies any chest pain, abdominal pain, fever, or chills at this time. Review of Systems General: No Chills Pulmonary: Cough Cardiovascular: No: Chest Pain, Edema Gastrointestinal: No: Abdominal Pain Objective Exam Vital Signs Vital Signs Date Time Temp Pulse Resp B/P (MAP) Pulse Ox O2 Delivery O2 Flow Rate FiO2 07/14/22 12:00 36.3 86 18 168/74 (105) 96 Nasal Cannula 2.00 07/12/22 00:27 21 Capillary Refill : Less Than 3 Seconds General Appearance: No Apparent Distress, WD/WN HEENT: PERRL/EOMI, Moist Mucous Membranes Neck: Normal Inspection, Supple Respiratory: Chest Non Tender, Wheezing Cardiovascular: No Edema, No JVD Gastrointestinal: Non Tender, Soft Rectal: Deferred Back: No CVA Tenderness, No Vertebral Tenderness Extremity: No Normal Capillary Refill; Other (ischemic right lower limb with erythema and discoloration) Neurologic/Psychiatric: Alert, Normal Mood/Affect Skin: Erythema, Pallor, Other (ischemic plantar surface of right foot with ischemia to several toes on right foot) Lymphatic: No Adenopathy Results/Procedures Lab Laboratory Tests 07/14/22 05:39 Patient resulted labs reviewed. Assessment/Plan Assessment and Plan Assess & Plan/Chief Complaint 1. Ischemia of right lower limb, right foot, and right toes Patient is scheduled to have amputation of RLE below the knee by surgeon Dr. Patrick due to poor blood flow to the extremity. Currently he is NPO and will be prepared for surgery. 2. Hx of PVD Continue home meds after surgery 3. Hyperlipidemia Continue home meds after surgery 4. 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 Glucometer today showed 272. Will start patient on Dilaudid for pain control. KALLIE VARGAS DO 07/15/22 0612: Subjective Subjective/Events-last exam Pt is doing about the same Creatinine is 1.68 Hemoglobin is 6.7 receiving one unit of blood, platelet count is 1,139 reactive Needs amputation of the mid foot due to severe osteomyelitis and status post intervention from Dr. Fu opening the vessel to the ankle but no ability to open up anymore circulation of the foot Review of Systems General: Fatigue, Malaise Objective Exam General Appearance: No Apparent Distress, WD/WN, Chronically ill Assessment/Plan Assessment and Plan Assess & Plan/Chief Complaint amputation today Supervisory-Addendum Brief Verification & Attestation Participated in pt care: history, MDM, physical Personally performed: exam, history, MDM, supervision of care Care discussed with: Medical Student Procedures: n/a Results interpretation: Verified all documentation Verification and Attestation of Medical Student E/M Service A medical student performed and documented this service in my presence. I reviewed and verified all information documented by the medical student and made modifications to such information, when appropriate. I personally performed the physical exam and medical decision making. Kallie Vargas Jul 15, 2022,06:12 GURJIT BONILLA Jul 14, 2022 12:37 KALLIE VARGAS DO Jul 15, 2022 06:12
[2022-07-14] MEDS: HYDROmorphone 2 MG/ML VIAL (DILAUDID) IVP PRN ×3 (12:40→21:50)
[2022-07-14] MEDS ORDERED: LACTATED RINGERS 1,000 ML IV PRN (15:00)
[2022-07-14] MEDS ORDERED: MIDAZOLAM 2 MG/2 ML (VERSED) VIAL ONE (16:02)
[2022-07-14] MEDS ORDERED: SEVOFLURANE (ULTANE) 15 ML INHAL SOLN ONE ×2 (16:02→17:19)
[2022-07-14] MEDS ORDERED: proPOfol 200 MG/20 ML (DIPRIVAN) VIAL IV ONE (16:02)
[2022-07-14] MEDS ORDERED: ONDANSETRON 4 MG/2 ML (SDV) Z0FRAN ONE (16:02)
[2022-07-14] MEDS ORDERED: fentaNYL INJ 100 MCG/2 ML AMP ONE (16:02)
[2022-07-14] MEDS ORDERED: LIDOCAINE PF 1% 5 ML (XYLOCAINE) AMP ONE (16:02)
[2022-07-14] MEDS ORDERED: MEPERIDINE (DEMEROL) INJ 50 MG/ML IVP ONE (16:30)
[2022-07-14] MEDS ORDERED: morphine INJ 10 MG/ML 1ML (SYR OR VIAL) IVP ONE (16:30)
[2022-07-14] MEDS ORDERED: ONDANSETRON 4 MG/2 ML (SDV) Z0FRAN IVP PRN (16:30)
--- NOTE | 2022-07-14 17:41 | Anesthesia-General Post-Op ---
General Patient Condition Mental Status/LOC: Same as Preop Cardiovascular: Satisfactory Nausea/Vomiting: Absent Respiratory: Satisfactory Pain: Controlled Complications: Absent Post Op Complications Complications None Follow Up Care/Instructions Patient Instructions None needed. Anesthesia/Patient Condition Patient Condition Patient is doing well, no complaints, stable vital signs, no apparent adverse anesthesia problems. No complications reported per nursing. KIRSTIN HANNAH CRNA Jul 14, 2022 17:41
[2022-07-14 20:13] LABS: HEMOGLOBIN 8.5 g/dL (13.3-17.7)
--- NOTE | 2022-07-14 21:13 | Progress Note-Post Operative ---
Post-Operative Progess Note Surgeon (s)/Director Chemistry (s) Surgeon KATTY PACK DO Director Chemistry: Dr. Corea Pre-Operative Diagnosis Ischemic changes to right foot Post-Operative Diagnosis same Procedure & Operative Findings Date of Procedure 07/14/22 Procedure Performed/Findings right bka Anesthesia Type general Estimated Blood Loss Estimated blood loss (mL): minimal Specimens/Packing Specimens Removed right lower extremity KATTY PACK DO Jul 14, 2022 21:13
[2022-07-14] MEDS: PATCH REMOVAL TP SCH (21:33)
[2022-07-15] VITALS (9 sets, daily range): BP systolic 141–185; BP diastolic 67–81
[2022-07-15] MEDS: HYDROcodone/APAP 5 MG/325 MG (LORTAB) TAB PO PRN ×2 (00:21→06:44)
--- NOTE | 2022-07-15 01:35 | OPERATIVE REPORT ---
DATE OF SERVICE: 07/14/2022 PREOPERATIVE DIAGNOSIS: Ischemic right foot. POSTOPERATIVE DIAGNOSIS: Ischemic right foot. PROCEDURE: Right below-knee amputation. SURGEON: Katty Patrick DO UI DEVELOPER: Dr. Corea, assisted in retraction, dissection and closure. ANESTHESIA: General. ESTIMATED BLOOD LOSS: Minimal. COMPLICATIONS: None. INDICATIONS: The patient is a 71-year-old male who presented with ischemic changes of the right foot. He is on antibiotics. Intervention was tried to reduce that was vascular supply, but the foot continued to worsen. Concern for healing and we discussed risks and benefits with the family and wished to proceed with right below-knee amputation. We also did discuss alternatives as well. It was felt that the best option at this point is a right below-knee amputation. DESCRIPTION OF PROCEDURE: The patient was taken to the operating suite, was prepped and draped in sterile fashion. Timeout was performed. A fishmouth incision was made on the right lower extremity. Cautery was used to dissect down through the subcutaneous tissues while the tourniquet was then put in place. Muscle was then continued to be divided. The tibia was then encountered. Pean was used to dissect around the tibia and a lap was used to dissect posteriorly around it bluntly. An elevator was used to elevate the subcutaneous tissues off of the tibia. A bone saw was then used to cut and shape the tibia. Dissection was also taken back on the fibula, which was then cut approximately a centimeter higher than the tibia. A rasp was used to smooth out the edges. The muscles were then continued to be divided and when vascular bundles were encountered, these were tied off and then divided. Once the right lower extremity was removed, the tourniquet was taken down. Hemostasis was achieved. The stump was then closed using 1-0 Prolene sutures and then alyssia. The area was washed and dried and sterile bandage was applied. The patient tolerated procedure well without complications and taken to recovery room in stable condition. Job ID: [id number] DocumentID: [id number] Dictated Date: 07/14/2022 21:56:01 Certified Pedorthotist Date: 07/15/2022 01:35:15 Dictated By: KATTY PATRICK DO
[2022-07-15] MEDS: PIPERACILLIN SODIUM/TAZOBACTAM 4.5 GM in NS (IVPB) 100 ML IV SCH ×3 (03:50→20:46)
[2022-07-15] MEDS: NS IV 1000 ML 1,000 ML IV SCH ×2 (03:50→17:51)
[2022-07-15] MEDS: HYDROmorphone 2 MG/ML VIAL (DILAUDID) IVP PRN (04:16)
[2022-07-15] MEDS: CATHETER FLUSH 10 ML SYR IVP SCH ×3 (04:19→20:16)
[2022-07-15 06:16] LABS: BASOPHILS # (AUTO) 0.1 10^3/uL (0.0-0.1); BASOPHILS % (AUTO) 1 % (0-10); EOSINOPHILS # (AUTO) 0.3 10^3/uL (0.0-0.3); EOSINOPHILS % (AUTO) 1 % (0-10); HEMATOCRIT 22 % (40-54); LYMPHOCYTES # (AUTO) 3.3 10^3/uL (1.0-4.0); LYMPHOCYTES % (AUTO) 15 % (12-44); MEAN CORPUSCULAR HEMOGLOBIN 28 pg (25-34); MEAN CORPUSCULAR HGB CONC 32 g/dL (32-36); MEAN CORPUSCULAR VOLUME 89 fL (80-99); MEAN PLATELET VOLUME 9.1 fL (9.0-12.2); MONOCYTES # (AUTO) 1.6 10^3/uL (0.0-1.0); MONOCYTES % (AUTO) 7 % (0-12); NEUTROPHILS # (AUTO) 16.8 10^3/uL (1.8-7.8); NEUTROPHILS % (AUTO) 76 % (42-75); PLATELET COUNT 819 10^3/uL (130-400); WHITE BLOOD COUNT 22.2 10^3/uL (4.3-11.0)
[2022-07-15 06:19] LABS: HEMOGLOBIN 6.8 g/dL (13.3-17.7)
[2022-07-15] MEDS ORDERED: NS IV 500 ML 500 ML IV SCH (06:30)
[2022-07-15 06:36] LABS: ALBUMIN 2.4 GM/DL (3.2-4.5); POTASSIUM 4.9 MMOL/L (3.6-5.0)
[2022-07-15 06:39] LABS: TOTAL PROTEIN 7.6 GM/DL (6.4-8.2)
[2022-07-15 06:40] LABS: BILIRUBIN,TOTAL 0.6 MG/DL (0.1-1.0)
[2022-07-15 06:42] LABS: CREATININE SERUM 1.67 MG/DL (0.60-1.30)
[2022-07-15] MEDS: LEVOTHYROXINE 125 MCG (LEVOTHROID) TABLET PO SCH (06:43)
[2022-07-15] MEDS: inSUlin ASPART (NovoLOG) 1 UNIT/0.01 ML (CHARGE PER UNIT) SC SCH ×4 (06:44→20:46)
--- NOTE | 2022-07-15 08:02 | Progress Note - Hospitalist ---
Subjective HPI/CC On Admission Date Seen by Provider: Jul 15, 2022 Time Seen by Provider: 11:00 Subjective/Events-last exam Patient having more pain Transfused another 1 unit of blood Confusion noted so ordered Haldol and Ativan at bedside Review of Systems General: Fatigue Musculoskeletal: foot pain Neurological: Confusion Objective Exam Vital Signs Vital Signs Date Time Temp Pulse Resp B/P (MAP) Pulse Ox O2 Delivery O2 Flow Rate FiO2 07/15/22 13:42 37.0 87 179/79 07/15/22 11:20 22 97 Nasal Cannula 2.00 07/12/22 00:27 21 Capillary Refill : Less Than 3 Seconds General Appearance: No Apparent Distress, WD/WN Respiratory: Lungs Clear, Normal Breath Sounds Cardiovascular: Regular Rate, Rhythm Neurologic/Psychiatric: Alert, Oriented x3, No Motor/Sensory Deficits, Normal Mood/Affect Results/Procedures Lab Laboratory Tests 07/14/22 20:00 07/15/22 05:50 Patient resulted labs reviewed. Assessment/Plan Assessment and Plan Assess & Plan/Chief Complaint Assessment: s/p right BKA POD # 1 Post op anemia requiring 2nd unit of blood this admit CKD DM HTN PVD s/p 2nd intervention of right leg Confusion/delirium Plan: Transfuse Pain control Jeffdol and ATJOSE Harris DO Jul 15, 2022 08:02
[2022-07-15] MEDS: ASPIRIN E.C. 81 MG (ECOTRIN) TAB PO SCH (09:24)
[2022-07-15] MEDS: ENOXAPARIN 40 MG/0.4 ML (LOVENOX) SYR SQ SCH (09:24)
[2022-07-15] MEDS: MIRABEGRON 25 MG TAB (MYRBETRIQ) PO SCH (09:24)
[2022-07-15] MEDS: amLODIPine 5 MG (NORVASC) TAB PO SCH (09:24)
[2022-07-15] MEDS: CLOPIDOGREL 75 MG (PLAVIX) TABLET PO SCH (09:24)
[2022-07-15] MEDS ORDERED: NS IV 500 ML 500 ML ONE (10:28)
[2022-07-15] MEDS ORDERED: SENNA W/DOCUSATE (SENOKOT S) TABLET PO ONE (11:15)
[2022-07-15] MEDS ORDERED: HYDROmorphone 2 MG/ML VIAL (DILAUDID) IVP PRN (11:15)
--- NOTE | 2022-07-15 11:20 | Progress Note - Surgery ---
KENYA PUENTES 07/15/22 1120: Subjective Date Seen by a Provider: Jul 15, 2022 Time Seen by a Provider: 07:45 Subjective/Events-last exam Patient claims pain in right leg is at a 10. He is maintained on NPO diet, he is not ambulating or using IS. He has a garza catheter, last BM was last night. P atient still has the dressing on his right leg, there was blood on the pad underneath his right leg. Review of Systems Gastrointestinal: No: Vomiting Musculoskeletal: leg pain Objective Exam Vital Signs Date Time Temp Pulse Resp B/P (MAP) Pulse Ox O2 Delivery O2 Flow Rate FiO2 07/15/22 10:41 36.7 79 18 144/67 07/15/22 07:41 37.1 82 22 151/76 (101) 98 Nasal Cannula 2.00 07/15/22 07:00 79 07/15/22 03:54 36.5 78 20 168/81 (110) 97 Nasal Cannula 2.00 07/15/22 02:39 36.6 74 97 07/15/22 01:40 74 07/14/22 23:58 36.6 74 20 159/71 (100) 97 Nasal Cannula 2.00 07/14/22 20:40 Nasal Cannula 2.00 07/14/22 19:13 36.7 72 18 144/78 (100) 98 Nasal Cannula 2.00 07/14/22 19:10 71 07/14/22 18:35 36.4 76 18 188/96 (126) 98 Nasal Cannula 2.00 07/14/22 18:25 OxyMask 2.00 07/14/22 18:20 37.2 16 169/75 (106) 100 OxyMask 2.00 07/14/22 18:10 OxyMask 2.00 07/14/22 18:10 16 166/87 (113) 99 OxyMask 2.00 07/14/22 18:00 16 160/71 (100) 100 OxyMask 2.00 07/14/22 17:50 16 128/65 (86) 99 OxyMask 2.00 07/14/22 17:50 OxyMask 2.00 07/14/22 17:40 16 113/58 (76) 99 OxyMask 4.00 07/14/22 17:32 36.1 16 79/55 (63) 100 OxyMask 6.00 07/14/22 17:32 OxyMask 6.00 07/14/22 15:26 37.1 82 16 159/75 (103) 95 Nasal Cannula 2.00 07/14/22 14:35 36.6 82 20 191/84 97 Room Air 07/14/22 12:42 86 07/14/22 12:00 36.3 86 18 168/74 (105) 96 Nasal Cannula 2.00 07/14/22 11:57 36.9 85 20 178/74 95 Room Air 07/14/22 11:32 36.3 87 20 161/72 97 Room Air I & O 07/15/22 07:00 Intake Total 3010 ml Output Total 1600 ml Balance 1410 ml Capillary Refill : Less Than 3 Seconds General Appearance: Chronically ill, Other (Agitated) Respiratory: Lungs Clear, Normal Breath Sounds, No Accessory Muscle Use, No Respiratory Distress, Wheezing Cardiovascular: Regular Rate, Rhythm, No Murmur Peripheral Pulses: 2+ Radial Pulses (R), 2+ Radial Pulses (L) Gastrointestinal: non tender, soft Neurologic/Psychiatric: Alert Results Lab Laboratory Tests 07/14/22 15:31: Glucometer 201H 07/14/22 20:00: Hemoglobin 8.5#L, Hematocrit 27L 07/14/22 21:42: Glucometer 180H 07/15/22 05:50: Hemoglobin 6.8*L, Hematocrit 22L, White Blood Count 22.2H, Red Blood Count 2.41L , Mean Corpuscular Volume 89, Mean Corpuscular Hemoglobin 28, Mean Corpuscular Hemoglobin Concent 32, Red Cell Distribution Width 14.1, Platelet Count 819H, Mean Platelet Volume 9.1, Immature Granulocyte % (Auto) 1, Neutrophils (%) (Auto) 76H, Lymphocytes (%) (Auto) 15, Monocytes (%) (Auto) 7, Eosinophils (%) (Auto) 1, Basophils (%) (Auto) 1, Neutrophils # (Auto) 16.8H, Lymphocytes # (Auto) 3.3, Monocytes # (Auto) 1.6H, Eosinophils # (Auto) 0.3, Basophils # (Auto) 0.1, Immature Granulocyte # (Auto) 0.1, Sodium Level 138, Potassium Level 4.9, Chloride Level 105, Carbon Dioxide Level 22, Anion Gap 11, Blood Urea Nitrogen 20H, Creatinine 1.67H, Estimat Glomerular Filtration Rate 44, BUN/Creatinine Ratio 12, Glucose Level 158H, Calcium Level 9.0, Corrected Calcium 10.3H, Total Bilirubin 0.6, Aspartate Amino Transf (AST/SGOT) 43H, Alanine Aminotransferase (ALT/SGPT) 31, Alkaline Phosphatase 281H, Total Protein 7.6, Albumin 2.4L Microbiology 07/12/22 Gram Stain - Final, Resulted 07/12/22 Wound Culture - Preliminary, Resulted Enterococcus faecalis Staphylococcus aureus Assessment/Plan Assessment/Plan Assessment/Plan S/P right BKA Anemia Patient is receiving a unit of RBC this AM. Check hgb after infusion and monitor with AM labs. Continue IV zosyn. BHUPENDRA FLOREZ DO 07/15/22 1158: Subjective Time Seen by a Provider: 10:38 Subjective/Events-last exam Pt seen and examined, he is confused. Keeps stating he wants to go home, his leg hurts and when I walked out he was yelling at food product inspector people. Review of Systems Gastrointestinal: No: Vomiting Musculoskeletal: leg pain Objective Exam General Appearance: Chronically ill, Other (Agitated) Respiratory: Lungs Clear, No Accessory Muscle Use, No Respiratory Distress, Wheezing Cardiovascular: Regular Rate, Rhythm, No Murmur Gastrointestinal: non tender, soft Extremity: Other (right leg wrapped, minimal drainage) Assessment/Plan Assessment/Plan Assessment/Plan S/P right BKA Anemia Patient is receiving a unit of RBC this AM. Check hgb after infusion and monitor with AM labs. Continue IV zosyn. Supervisory-Addendum Brief Verification & Attestation Participated in pt care: history, MDM, physical Personally performed: exam, history, MDM, supervision of care Care discussed with: Medical Student Procedures: n/a Verification and Attestation of Medical Student E/M Service A medical student performed and documented this service. I then reviewed and verified all information documented by the medical student and made kat fications to such information, when appropriate. I personally performed a physical exam, medical decision making and then discussed any differences between the notes and made revisions as necessary to create one note. Bhupendra Florez , 07/15/22 , 11:59 KENYA PUENTES Jul 15, 2022 11:20 BHUPENDRA FLOREZ DO Jul 15, 2022 11:58
[2022-07-15] MEDS: NITROGLYCERIN 2% OINT 1 GM UNIT DOSE PACKET TOP SCH (12:21)
--- NOTE | 2022-07-15 12:28 | Progress Note - Cardiology ---
Cardiology SOAP Progress Note Subjective: Appears frustrated and is swearing at providers Does not report cp or palp or syncope or shortness of breath Does not report n/v/d Objective: I&O/Vital Signs 07/15/22 07/15/22 07/15/22 07/15/22 01:40 02:39 03:54 07:00 Temp 36.6 36.5 Pulse 74 74 78 79 Resp 20 B/P (MAP) 168/81 (110) Pulse Ox 97 97 O2 Delivery Nasal Cannula O2 Flow Rate 2.00 07/15/22 07/15/22 07/15/22 07/15/22 07:41 10:41 11:00 11:20 Temp 37.1 36.7 36.7 36.7 Pulse 82 79 78 75 Resp 22 18 22 B/P (MAP) 151/76 (101) 144/67 185/80 174/79 (110) Pulse Ox 98 97 O2 Delivery Nasal Cannula Nasal Cannula O2 Flow Rate 2.00 2.00 07/15/22 00:00 Intake Total 1710 ml Output Total 900 ml Balance 810 ml Weight (Pounds): 161 Weight (Ounces): 4.0 Weight (Calculated Kilograms): 73.677271 Constitutional: AAO x 3, well-developed, well-nourished Respiratory: No accessory muscle use; other (fair to good, bilat air entry that is diminised at the bases) Cardiovascular: regular rate-rhythm, S1 and S2, systolic murmur (soft WES at card base) Gastrointestional: No tender; soft; No guarding, No rebound; audible bowel sounds Extremities: other (R BKA, stump in dressing); No clubbing, No cyanosis Neurologic/Psychiatric: oriented x 3, other (moves all limbs equally) Skin: No rash on exposed areas, No ulcerations on exposed areas Results/Procedures: Labs Laboratory Tests 07/14/22 15:31: Glucometer 201H 07/14/22 20:00: Hemoglobin 8.5#L, Hematocrit 27L 07/14/22 21:42: Glucometer 180H 07/15/22 05:50: Hemoglobin 6.8*L, Hematocrit 22L, White Blood Count 22.2H, Red Blood Count 2.41L , Mean Corpuscular Volume 89, Mean Corpuscular Hemoglobin 28, Mean Corpuscular Hemoglobin Concent 32, Red Cell Distribution Width 14.1, Platelet Count 819H, Mean Platelet Volume 9.1, Immature Granulocyte % (Auto) 1, Neutrophils (%) (A uto) 76H, Lymphocytes (%) (Auto) 15, Monocytes (%) (Auto) 7, Eosinophils (%) (Auto) 1, Basophils (%) (Auto) 1, Neutrophils # (Auto) 16.8H, Lymphocytes # (Auto) 3.3, Monocytes # (Auto) 1.6H, Eosinophils # (Auto) 0.3, Basophils # (Auto) 0.1, Immature Granulocyte # (Auto) 0.1, Sodium Level 138, Potassium Level 4.9, Chloride Level 105, Carbon Dioxide Level 22, Anion Gap 11, Blood Urea Nitrogen 20H, Creatinine 1.67H, Estimat Glomerular Filtration Rate 44, BUN/Creatinine Ratio 12, Glucose Level 158H, Calcium Level 9.0, Corrected Calcium 10.3H, Total Bilirubin 0.6, Aspartate Amino Transf (AST/SGOT) 43H, Alanine Aminotransferase (ALT/SGPT) 31, Alkaline Phosphatase 281H, Total Protein 7.6, Albumin 2.4L 07/15/22 11:37: Glucometer 166H Microbiology 07/12/22 Gram Stain - Final, Resulted 07/12/22 Wound Culture - Preliminary, Resulted Enterococcus faecalis Staphylococcus aureus Laboratory Tests 07/14/22 05:39 07/14/22 20:00 07/15/22 05:50 A/P: Assessment: Severe PAD - h/o multiple PCI to art circ of the R leg - s/p R BKA on 07/14/22 for R lower limb gangrene Severe anemia - of chronic disease - blood loss (perioperatvie) H/o CVA Generalized malaise and weakness Intolerant to CAIO inhibitor and/or ARB due to hyperkalemia Hyperlipidemia - treated with statin Hypertension Diabetes mellitus II, followed and managed by primary care physician History of tobaccoism in the remote past. Plan: * Complex management due to multiple comorbidities * Blood transfusion are being given today * Monitor labs closely ALEJO DE SANTIAGO MD FACP [facility] Jul 15, 2022 12:28
[2022-07-15] MEDS ORDERED: HALOPERIDOL 5 MG/ML (HALDOL) VIAL IM PRN (12:30)
[2022-07-15] MEDS: LORazepam 0.5 MG (ATIVAN) TABLET PO PRN (12:51)
[2022-07-15] MEDS: PATCH REMOVAL TP SCH (20:16)
[2022-07-16] VITALS (7 sets, daily range): BP systolic 123–168; BP diastolic 65–83
[2022-07-16] MEDS: PIPERACILLIN SODIUM/TAZOBACTAM 4.5 GM in NS (IVPB) 100 ML IV SCH ×3 (04:16→20:27)
[2022-07-16] MEDS: CATHETER FLUSH 10 ML SYR IVP SCH ×3 (05:08→21:58)
[2022-07-16] MEDS: LEVOTHYROXINE 125 MCG (LEVOTHROID) TABLET PO SCH (05:39)
[2022-07-16] MEDS: inSUlin ASPART (NovoLOG) 1 UNIT/0.01 ML (CHARGE PER UNIT) SC SCH ×4 (05:40→21:01)
[2022-07-16 05:41] LABS: BASOPHILS # (AUTO) 0.1 10^3/uL (0.0-0.1); BASOPHILS % (AUTO) 1 % (0-10); EOSINOPHILS # (AUTO) 0.2 10^3/uL (0.0-0.3); EOSINOPHILS % (AUTO) 1 % (0-10); HEMATOCRIT 24 % (40-54); HEMOGLOBIN 7.7 g/dL (13.3-17.7); LYMPHOCYTES # (AUTO) 3.2 10^3/uL (1.0-4.0); LYMPHOCYTES % (AUTO) 17 % (12-44); MEAN CORPUSCULAR HEMOGLOBIN 28 pg (25-34); MEAN CORPUSCULAR HGB CONC 32 g/dL (32-36); MEAN CORPUSCULAR VOLUME 89 fL (80-99); MONOCYTES # (AUTO) 1.9 10^3/uL (0.0-1.0); MONOCYTES % (AUTO) 10 % (0-12); NEUTROPHILS # (AUTO) 13.6 10^3/uL (1.8-7.8); NEUTROPHILS % (AUTO) 71 % (42-75); PLATELET COUNT 669 10^3/uL (130-400); WHITE BLOOD COUNT 19.1 10^3/uL (4.3-11.0)
[2022-07-16 06:11] LABS: ALBUMIN 2.4 GM/DL (3.2-4.5); POTASSIUM 5.3 MMOL/L (3.6-5.0)
[2022-07-16 06:12] LABS: CALCIUM 8.7 MG/DL (8.5-10.1)
[2022-07-16 06:13] LABS: TOTAL PROTEIN 7.5 GM/DL (6.4-8.2)
[2022-07-16 06:15] LABS: BILIRUBIN,TOTAL 0.7 MG/DL (0.1-1.0)
[2022-07-16 06:17] LABS: CREATININE SERUM 1.69 MG/DL (0.60-1.30)
--- NOTE | 2022-07-16 06:42 | Progress Note - Hospitalist ---
Subjective HPI/CC On Admission Date Seen by Provider: Jul 16, 2022 Time Seen by Provider: 11:00 Subjective/Events-last exam Patient doing well Pain is improved Patient gets confused and shouts out Review of Systems Musculoskeletal: foot pain Objective Exam Vital Signs Vital Signs Date Time Temp Pulse Resp B/P (MAP) Pulse Ox O2 Delivery O2 Flow Rate FiO2 07/16/22 16:38 36.8 78 22 149/67 (94) 97 Nasal Cannula 2.00 07/12/22 00:27 21 Capillary Refill : Less Than 3 Seconds General Appearance: No Apparent Distress, WD/WN, Chronically ill Respiratory: Lungs Clear, Normal Breath Sounds Cardiovascular: Regular Rate, Rhythm Neurologic/Psychiatric: Alert, Depressed Affect, Disoriented Results/Procedures Lab Laboratory Tests 07/16/22 05:13 Patient resulted labs reviewed. Assessment/Plan Assessment and Plan Assess & Plan/Chief Complaint Assessment: s/p right BKA POD # 2 Post op anemia requiring 2nd unit of blood this admit CKD DM HTN PVD s/p 2nd intervention of right leg Confusion/delirium Plan: Transfuse prn Pain control JOSE Bergeron DO Jul 16, 2022 06:42
[2022-07-16] MEDS: amLODIPine 5 MG (NORVASC) TAB PO SCH (09:02)
[2022-07-16] MEDS: ASPIRIN E.C. 81 MG (ECOTRIN) TAB PO SCH (09:02)
[2022-07-16] MEDS: MIRABEGRON 25 MG TAB (MYRBETRIQ) PO SCH (09:02)
[2022-07-16] MEDS: CLOPIDOGREL 75 MG (PLAVIX) TABLET PO SCH (09:02)
[2022-07-16] MEDS: ENOXAPARIN 40 MG/0.4 ML (LOVENOX) SYR SQ SCH (09:03)
[2022-07-16] MEDS: NS IV 1000 ML 1,000 ML IV SCH (09:03)
--- NOTE | 2022-07-16 09:23 | Progress Note - Surgery ---
KENYA PUENTES 07/16/22 0923: Subjective Date Seen by a Provider: Jul 16, 2022 Time Seen by a Provider: 07:45 Subjective/Events-last exam Patient claims he is doing better today. Pain is under better control, he is tolerating a solid diet and having BMs. Gaffney catheter is still in place, patient is not using IS. Dressing on leg was changed three times last night. Review of Systems General: No Chills, No Night Sweats Pulmonary: No Dyspnea Cardiovascular: No: Chest Pain Gastrointestinal: No: Nausea, Vomiting, Abdominal Pain Objective Exam Vital Signs Date Time Temp Pulse Resp B/P (MAP) Pulse Ox O2 Delivery O2 Flow Rate FiO2 07/16/22 09:02 2.00 07/16/22 07:53 36.4 77 18 131/65 (87) 97 Nasal Cannula 2.00 07/16/22 03:37 36.3 81 20 152/72 (98) 98 Nasal Cannula 2.00 07/16/22 00:00 36.3 86 16 123/73 (90) 97 Nasal Cannula 2.00 07/15/22 20:50 Nasal Cannula 2.00 07/15/22 19:33 37.0 87 22 141/72 (95) 96 Nasal Cannula 2.00 07/15/22 17:00 36.9 89 22 152/81 (104) 99 Room Air 07/15/22 13:42 37.0 87 179/79 07/15/22 11:20 36.7 75 22 174/79 (110) 97 Nasal Cannula 2.00 07/15/22 11:00 36.7 78 185/80 07/15/22 10:41 36.7 79 18 144/67 I & O 07/16/22 07:00 Intake Total 1805 ml Output Total 1825 ml Balance -20 ml Capillary Refill : Less Than 3 Seconds General Appearance: No Apparent Distress, Chronically ill, Obese Respiratory: Lungs Clear, Normal Breath Sounds, No Accessory Muscle Use, No Respiratory Distress Cardiovascular: Regular Rate, Rhythm, No Murmur Peripheral Pulses: 2+ Radial Pulses (R), 2+ Radial Pulses (L) Gastrointestinal: normal bowel sounds, non tender, soft Extremity: Other (Right leg wrapped, mild amount of blood noted posteriorly on dressing) Neurologic/Psychiatric: Alert, Oriented x3 Results Lab Laboratory Tests 07/15/22 11:37: Glucometer 166H 07/15/22 17:29: Glucometer 193H 07/15/22 20:33: Glucometer 191H 07/16/22 05:13: White Blood Count 19.1H, Red Blood Count 2.72L, Hemoglobin 7.7L, Hematocrit 24L, Mean Corpuscular Volume 89, Mean Corpuscular Hemoglobin 28, Mean Corpuscular Hemoglobin Concent 32, Red Cell Distribution Width 14.2, Platelet Count 669H, Mean Platelet Volume 9.0, Immature Granulocyte % (Auto) 1, Neutrophils (%) (Auto) 71, Lymphocytes (%) (Auto) 17, Monocytes (%) (Auto) 10, Eosinophils (%) (Auto) 1, Basophils (%) (Auto) 1, Neutrophils # (Auto) 13.6H, Lymphocytes # (Auto) 3.2, Monocytes # (Auto) 1.9H, Eosinophils # (Auto) 0.2, Basophils # (Auto) 0.1, Immature Granulocyte # (Auto) 0.1, Sodium Level 137, Potassium Level 5.3H, Chloride Level 105, Carbon Dioxide Level 22, Anion Gap 10, Blood Urea Nitrogen 17, Creatinine 1.69H, Estimat Glomerular Filtration Rate 43, BUN/Creatinine Ratio 10, Glucose Level 156H, Calcium Level 8.7, Corrected Calcium 10.0, Total Bilirubin 0.7, Aspartate Amino Transf (AST/SGOT) 47H, Alanine Aminotransferase (ALT/SGPT) 28, Alkaline Phosphatase 264H, Total Protein 7.5, Albumin 2.4L 07/16/22 05:21: Glucometer 153H Microbiology 07/12/22 Gram Stain - Final, Complete 07/12/22 Wound Culture - Final, Complete Enterococcus faecalis Staphylococcus aureus Assessment/Plan Assessment/Plan Assessment/Plan S/P right BKA Anemia Patient received a unit of RBC yesterday, hgb increased to 7.7 from 6.8. Monitor with AM labs and transfuse as needed. Continue IV zosyn. Pain control with IV Dilaudid. BHUPENDRA FLOREZ DO 07/16/22 1644: Subjective Time Seen by a Provider: 12:36 Subjective/Events-last exam Pt seen and examined, still with minimal pain. Dressing reinforced 3 times last night Review of Systems General: No Chills, No Night Sweats Pulmonary: No Dyspnea Cardiovascular: No: Chest Pain Gastrointestinal: No: Nausea, Vomiting, Abdominal Pain Objective Exam General Appearance: Chronically ill, Obese Respiratory: Lungs Clear, Normal Breath Sounds, No Accessory Muscle Use, No Respiratory Distress Cardiovascular: Regular Rate, Rhythm, No Murmur Gastrointestinal: non tender, soft Extremity: Other (Dressing taken down, large clot in bandages, no current oozing or bleeding, incision intact and looks good) Neurologic/Psychiatric: Alert, Disoriented (vs. not making sense) Assessment/Plan Assessment/Plan Assessment/Plan Anemia S/P right BKA Patient received a unit of RBC yesterday, hgb increased to 7.7 from 6.8. Monitor with AM labs and transfuse as needed. Continue IV zosyn. Pain control with IV Dilaudid. Supervisory-Addendum Brief Verification & Attestation Participated in pt care: history, MDM, physical Personally performed: exam, history, MDM, supervision of care Care discussed with: Medical Student Procedures: n/a Verification and Attestation of Medical Student E/M Service A medical student performed and documented this service. I then reviewed and verified all information documented by the medical student and made modifications to such information, when appropriate. I personally performed a physical exam, medical decision making and then discussed any differences between the notes and made revisions as necessary to create one note. Bhupendra Florez , 07/16/22 , 16:44 KENYA PUENTES Jul 16, 2022 09:23 BHUPENDRA FLOREZ DO Jul 16, 2022 16:44
[2022-07-16] MEDS: PATCH REMOVAL TP SCH (19:21)
[2022-07-17] MEDS: NS IV 1000 ML 1,000 ML IV SCH ×2 (01:10→16:49)
[2022-07-17 03:52] VITALS: BP 131/81
[2022-07-17] MEDS: PIPERACILLIN SODIUM/TAZOBACTAM 4.5 GM in NS (IVPB) 100 ML IV SCH ×2 (04:24→11:28)
[2022-07-17] MEDS: CATHETER FLUSH 10 ML SYR IVP SCH ×3 (05:54→20:52)
[2022-07-17] MEDS: LEVOTHYROXINE 125 MCG (LEVOTHROID) TABLET PO SCH (05:55)
[2022-07-17] MEDS: inSUlin ASPART (NovoLOG) 1 UNIT/0.01 ML (CHARGE PER UNIT) SC SCH ×4 (05:56→20:52)
[2022-07-17 06:06] LABS: BASOPHILS # (AUTO) 0.1 10^3/uL (0.0-0.1); BASOPHILS % (AUTO) 1 % (0-10); EOSINOPHILS # (AUTO) 0.2 10^3/uL (0.0-0.3); EOSINOPHILS % (AUTO) 1 % (0-10); HEMATOCRIT 22 % (40-54); LYMPHOCYTES # (AUTO) 3.6 10^3/uL (1.0-4.0); LYMPHOCYTES % (AUTO) 21 % (12-44); MEAN CORPUSCULAR HEMOGLOBIN 29 pg (25-34); MEAN CORPUSCULAR HGB CONC 32 g/dL (32-36); MEAN CORPUSCULAR VOLUME 89 fL (80-99); MEAN PLATELET VOLUME 9.4 fL (9.0-12.2); MONOCYTES # (AUTO) 1.4 10^3/uL (0.0-1.0); MONOCYTES % (AUTO) 9 % (0-12); NEUTROPHILS # (AUTO) 11.3 10^3/uL (1.8-7.8); NEUTROPHILS % (AUTO) 68 % (42-75); PLATELET COUNT 641 10^3/uL (130-400); WHITE BLOOD COUNT 16.7 10^3/uL (4.3-11.0)
[2022-07-17 06:31] LABS: ALBUMIN 2.4 GM/DL (3.2-4.5); BILIRUBIN,TOTAL 0.5 MG/DL (0.1-1.0); CALCIUM 8.9 MG/DL (8.5-10.1); CREATININE SERUM 1.75 MG/DL (0.60-1.30); TOTAL PROTEIN 7.3 GM/DL (6.4-8.2)
[2022-07-17 06:43] LABS: BAND NEUTROPHILS 0 %; BASOPHILS % (MANUAL) 0 %; EOSINOPHILS % (MANUAL) 1 %; LYMPHOCYTES % (MANUAL) 21 %; MONOCYTES % (MANUAL) 11 %; NEUTROPHILS % (MANUAL) 67 %; RBC MORPH NORMAL
--- NOTE | 2022-07-17 06:54 | Progress Note - Hospitalist ---
Subjective HPI/CC On Admission Date Seen by Provider: Jul 17, 2022 Time Seen by Provider: 11:00 Subjective/Events-last exam NO major issues BM today at bedside He wants to go home Overall less irritated today but he is a challenge to manage Labs stable Review of Systems Musculoskeletal: leg pain Objective Exam Vital Signs Vital Signs Date Time Temp Pulse Resp B/P (MAP) Pulse Ox O2 Delivery O2 Flow Rate FiO2 07/17/22 11:39 36.7 76 18 150/76 (100) 98 Nasal Cannula 3.00 07/12/22 00:27 21 Capillary Refill : Less Than 3 Seconds General Appearance: No Apparent Distress, WD/WN, Chronically ill Respiratory: Lungs Clear, Normal Breath Sounds Cardiovascular: Regular Rate, Rhythm Neurologic/Psychiatric: Alert, Disoriented Results/Procedures Lab Laboratory Tests 07/17/22 05:25 Patient resulted labs reviewed. Assessment/Plan Assessment and Plan Assess & Plan/Chief Complaint Assessment: s/p right BKA POD # 3 Post op anemia requiring 2nd unit of blood this admit CKD DM HTN PVD s/p 2nd intervention of right leg Confusion/delirium Plan: Transfuse prn Pain control JOSE Bergeron DO Jul 17, 2022 06:54
[2022-07-17 07:36] VITALS: BP 116/69
[2022-07-17] MEDS: CLOPIDOGREL 75 MG (PLAVIX) TABLET PO SCH (08:32)
[2022-07-17] MEDS: ASPIRIN E.C. 81 MG (ECOTRIN) TAB PO SCH (08:32)
[2022-07-17] MEDS: amLODIPine 5 MG (NORVASC) TAB PO SCH (08:33)
[2022-07-17] MEDS: ENOXAPARIN 40 MG/0.4 ML (LOVENOX) SYR SQ SCH (08:33)
[2022-07-17] MEDS: MIRABEGRON 25 MG TAB (MYRBETRIQ) PO SCH (08:33)
--- NOTE | 2022-07-17 09:28 | Physical Therapy Evaluation ---
PT Evaluation-General Medical Diagnosis Admission Date Jul 13, 2022 at 13:10 Medical Diagnosis: Right BKA Onset Date: Jul 14, 2022 Therapy Diagnosis Therapy Diagnosis: Gait deficit, strength deficit Height/Weight Height (Feet): 5 Height (Inches): 10.00 Weight (Pounds): 161 Weight (Ounces): 4.0 Precautions Precautions/Isolations: Fall Prevention, Standard Precautions Weight Bear Status Right Lower Extremity: Right Non Weight Bearing Left Lower Extremity: Left Full Weight Bearing Referral Physician: Dr. Jiang Reason for Referral: Evaluation/Treatment Medical History Pertinent Medical History: Arthritis, COPD, CVA, DM, Dementia, GERD, HTN, Neuropathy Social History Home: Single Level Current Living Status: Spouse Entry Into Home: Stairs With Railing PT Steps Into Home: 3 Prior Prior Level of Function SCALE: Activities may be completed with or without assistive devices. 0-Qbrfjczsob-vvnnzwx completes the activity by him/herself with no assistance from a helper. 5-Set-up or Clean-up Assistance-helper sets up or cleans up; patient completes activity. [place] assists only prior to or following the activity. 4-Supervision or Touching Assistance-helper provides verbal cues and/or touching/steadying and/or contact guard assistance as patient completes activity. Assistance may be provided throughout the activity or intermittently. 3-Partial/Moderate Assistance-helper does LESS THAN HALF the effort. [place] lifts, holds or supports trunk or limbs, but provides less than half the effort. 2-Substantial/Maximal Assistance-helper does MORE THAN HALF the effort. [place] lifts or holds trunk or limbs and provides more than half the effort. 3-Onodwxjsy-ayohxh does ALL the effort. Patient does none of the effort to complete the activity. Or, the assistance of 2 or more helpers is required for the patient to complete the activity. If activity was not attempted, code reason: 7-Patient Refused. 9-Not Applicable-not attempted and the patient did not perform the activity before the current illness, exacerbation or injury. 10-Not Attempted due to Environmental Limitations-(lack of equipment, weather restraints, etc.). 88-Not Attempted due to Medical Conditions or Safety Concerns. Bed Mobility: 6 Transfers (B,C,W/C): 6 Gait: 3 Indoor Mobility (Ambulation): Needed Some Help Stairs: Unknown Prior Devices Use: Walker Patient reports prior to surgery he was unable to walk for sometime due to the right LE pain and weakness. Reports his does all of the ADLs around the house and assisted him with walking. PT Evaluation-Current Subjective Patient lying supine in bed upon PT arrival, agreeable to treatment. Difficult to understand his speech, however nurse reports this is baseline. He is unaware of his present location, remembers his name and reports today is Sunday, but states he doesn't know the date, month or year. Objective Patient Orientation: Person Attachments: Oxygen, Gaffney Catheter, IV ROM/Strength ROM Lower Extremities Right knee in ~ 35 degrees flexion while in supine. Left LE WFLs PROM all planes. Strength Lower Extremities 3/5 bilaterally all planes. Sensory Vision: Functional Hearing: Functional Sensation Right Lower Extremit: Impaired Sensation Left Lower Extremity: Impaired Transfers Roll Left to Right (QC): 2 Sit to Lying (QC): 2 Lying to Sitting/Side of Bed(Q: 2 Sit to Stand (QC): 1 Gait Does the Patient Walk?: No and Walking Goal IS indicated Mode of Locomotion: Both Anticipated Mode of Locomotion: Both Balance Sitting Static: Poor Sitting Dynamic: Poor Standing Static: Poor Standing Dynamic: Poor Assessment/Needs Patient tolerated treatment fair. Initially demonstrates significant difficulty maintaining sitting at edge of bed and requires max A to avoid falling. Patient attempts to stand, however unable to do so with total A. Patient requires max A for sit to supine and total A for sliding higher in the bed. Patient in bed post treatment with all needs met, nursing notified and call light in hand. Bilingual Speech Language Pathologist notified of order for stump cook manager and information faxed. Rehab Potential: Poor PT Credit Rating Checker Goals Credit Rating Checker Goals PT Assisted Goals Time Frame: Jul 28, 2022 Roll Left & Right (QC): 4 Sit to Lying (QC): 4 Lying-Sitting on Side/Bed(QC): 4 Sit to Stand (QC): 4 Chair/Qug-oi-Cfecq Xfer(QC): 3 Toilet Transfer (QC): 3 Does the Patient Walk: No and Walking Goal IS indicated Walk 10 feet (QC): 2 Does the Pt use WC or Scooter?: Yes Wheel 50 feet with 2 turns (QC: 4 Type: Manual Wheel 150 feet: 4 Type: Manual PT Plan Problem List Problem List: Activity Tolerance, Functional Strength, Safety, Balance, Gait, Transfer, Bed Mobility, ROM Treatment/Plan Treatment Plan: Continue Plan of Care Treatment Plan: Bed Mobility, Education, Functional Activity [place], Functional Strength, Gait, Safety, Therapeutic Exercise, Transfers Treatment Duration: Aug 11, 2022 Frequency: 6 times per week Estimated Hrs Per Day: .25 hour per day Patient and/or Family Agrees t: Yes Safety Risks/Education Patient Education: Transfer Techniques, Safety Issues Teaching Recipient: Patient Teaching Methods: Demonstration, Discussion Response to Teaching: Reinforcement Needed Time/GCodes Time In: 854 Time Out: 920 Total Billed Treatment Time: 26 Total Billed Treatment Visit, CORINA Camargo JOHN A PT Jul 17, 2022 09:28
--- NOTE | 2022-07-17 09:38 | Progress Note - Surgery ---
Subjective Time Seen by a Provider: 09:17 Subjective/Events-last exam Pt seen and examined, denies abdominal pain but does have some leg pain. Pt is slow to answer and mumbles, but appears to answer appropriately. Review of Systems General: No Chills, No Night Sweats Pulmonary: No Dyspnea, No Cough Cardiovascular: No: Chest Pain, Palpitations Gastrointestinal: No: Nausea, Vomiting, Abdominal Pain Objective Exam Vital Signs Date Time Temp Pulse Resp B/P (MAP) Pulse Ox O2 Delivery O2 Flow Rate FiO2 07/17/22 07:36 37.2 80 20 116/69 (85) 98 Nasal Cannula 3.00 07/17/22 03:52 36.8 77 18 131/81 (98) 99 Nasal Cannula 2.00 07/16/22 23:49 37.2 86 20 142/71 (94) 99 Nasal Cannula 2.00 07/16/22 20:54 36.8 85 22 168/83 (111) 99 Nasal Cannula 2.00 07/16/22 20:30 Nasal Cannula 2.00 07/16/22 18:35 90 Nasal Cannula 4.00 07/16/22 16:38 36.8 78 22 149/67 (94) 97 Nasal Cannula 2.00 07/16/22 12:13 36.4 77 18 145/67 (93) 99 Nasal Cannula 2.00 I & O 07/17/22 07:00 Intake Total 3821 ml Output Total 2750 ml Balance 1071 ml Capillary Refill : Less Than 3 Seconds General Appearance: No Apparent Distress, Chronically ill Respiratory: Lungs Clear, Normal Breath Sounds, No Accessory Muscle Use, No Respiratory Distress Cardiovascular: Regular Rate, Rhythm, No Murmur Peripheral Pulses: 2+ Radial Pulses (R), 2+ Radial Pulses (L) Gastrointestinal: non tender, soft Extremity: Other (Dressing has some drainage, incision still c/d/i) Neurologic/Psychiatric: Alert, Depressed Affect Results Lab Laboratory Tests 07/16/22 11:46: Glucometer 176H 07/16/22 16:43: Glucometer 156H 07/16/22 20:52: Glucometer 158H 07/17/22 05:25: White Blood Count 16.7H, Red Blood Count 2.46L, Hemoglobin 7.0L, Hematocrit 22L, Mean Corpuscular Volume 89, Mean Corpuscular Hemoglobin 29, Mean Corpuscular Hemoglobin Concent 32, Red Cell Distribution Width 14.0, Platelet Count 641H, Mean Platelet Volume 9.4, Immature Granulocyte % (Auto) 1, Neutrophils (%) (Auto) 68, Lymphocytes (%) (Auto) 21, Monocytes (%) (Auto) 9, Eosinophils (%) (Auto) 1, Basophils (%) (Auto) 1, Neutrophils # (Auto) 11.3H, Lymphocytes # (Auto) 3.6, Monocytes # (Auto) 1.4H, Eosinophils # (Auto) 0.2, Basophils # (Auto) 0.1, Immature Granulocyte # (Auto) 0.1, Neutrophils % (Manual) 67, Ly mphocytes % (Manual) 21, Monocytes % (Manual) 11, Eosinophils % (Manual) 1, Basophils % (Manual) 0, Band Neutrophils 0, Blood Morphology Comment NORMAL, Sodium Level 134L, Potassium Level 5.0, Chloride Level 103, Carbon Dioxide Level 21, Anion Gap 10, Blood Urea Nitrogen 16, Creatinine 1.75H, Estimat Glomerular Filtration Rate 41, BUN/Creatinine Ratio 9, Glucose Level 160H, Calcium Level 8.9, Corrected Calcium 10.2H, Total Bilirubin 0.5, Aspartate Amino Transf (AST/SGOT) 40H, Alanine Aminotransferase (ALT/SGPT) 23, Alkaline Phosphatase 272H, Total Protein 7.3, Albumin 2.4L 07/17/22 05:27: Glucometer 167H Microbiology 07/12/22 Gram Stain - Final, Complete 07/12/22 Wound Culture - Final, Complete Enterococcus faecalis Staphylococcus aureus Assessment/Plan Assessment/Plan Assessment/Plan Anemia S/P right BKA Patient received a unit of RBC yesterday, hgb down to 7.o from 7.7 yesterday an d 6.8 day before that; basically stable. Monitor with labs and transfuse as needed. Continue IV zosyn. Pain control with IV Dilaudid. GARFIELD FLOREZ DO Jul 17, 2022 09:38
[2022-07-17 11:39] VITALS: BP 150/76
--- NOTE | 2022-07-17 11:59 | Occupational Therapy Eval ---
OT Evaluation-General/PLF Medical Diagnosis Admission Date Jul 13, 2022 at 13:10 Medical Diagnosis: Right BKA Onset Date: Jul 14, 2022 Therapy Diagnosis Therapy Diagnosis: reduced adl status Height/Weight Height (Feet): 5 Height (Inches): 10.00 Weight (Pounds): 161 Weight (Ounces): 4.0 Precautions Precautions/Isolations: Fall Prevention, Standard Precautions Referral Physician: Dr. Jiang Referral Reason: Evaluation/Treatment Medical History Pertinent Medical History: Arthritis, COPD, CVA, DM, Dementia, GERD, HTN, Neuropathy Current History Pt presents with abdominal pain, nausea, and ischemia of R foot. S/p R BKA, POD #2. Per , pt lives in a single story home and receives assistance with adls including LB dressing, toileting, and bathing. performs all iadls. He was using a FWW at baseline. Social History Home: Single Level Current Living Status: Spouse Entry Into Home: Stairs With Railing Steps Into Home: 3 ADL-Prior Level of Function SCALE: Activities may be completed with or without assistive devices. 3-Uecfeprdod-wmujhcp completes the activity by him/herself with no assistance from a helper. 5-Set-up or Clean-up Assistance-helper sets up or cleans up; patient completes activity. [place] assists only prior to or following the activity. 4-Supervision or Touching Assistance-helper provides verbal cues and/or touching/steadying and/or contact guard assistance as patient completes ac tivity. Assistance may be provided throughout the activity or intermittently. 3-Partial/Moderate Assistance-helper does LESS THAN HALF the effort. [place] lifts, holds or supports trunk or limbs, but provides less than half the effort. 2-Substantial/Maximal Assistance-helper does MORE THAN HALF the effort. [place] lifts or holds trunk or limbs and provides more than half the effort. 9-Zbifxxjpa-aspjrh does ALL the effort. Patient does none of the effort to complete the activity. Or, the assistance of 2 or more helpers is required for the patient to complete the activity. If activity was not attempted, code reason: 7-Patient Refused. 9-Not Applicable-not attempted and the patient did not perform the activity before the current illness, exacerbation or injury. 10-Not Attempted due to Environmental Limitations-(lack of equipment, weather restraints, etc.). 88-Not Attempted due to Medical Conditions or Safety Concerns. Self Care: Needed Some Help Functional Cognition: Dependent DME/Equipment: Bath Bench, Tub/Shower Drive Self: No OT Current Status Subjective Pt sleeping, easy to rouse. Slightly agitated, wants to go home. Difficult to understand. Appearance Pt left supine in bed, at bedside, all needs within reach. Mental Status/Objective Patient Orientation: Confused Attachments: IV, Oxygen Current Hand Dominance: Right Upper Extremity ROM Bilateral shoulders: ~150 degrees Elbow-distally: WNL Upper Extremity Strength Bilateral shoulders/elbows: WFL Fair optical manufacturing technician ADL-Treatment Lower Body Dressing (QC): 1 (per clinical judgment) On/Off Footwear (QC): 1 (per clinical judgment) Toileting Hygiene (QC): 1 (per report) Pt sleeping at OT arrival. Easy to rouse, but slightly agitated. Max a to roll R/L. Pt perseverating on wanting to go home, unable to be redirected. Per PT note, pt is max/dependent for bed mobility and to maintain sitting balance. At this time, he would be dependent for LB bathing and dressing including donning/doffing socks. suggests getting a motorized scooter. OT provides education on safety and how this may not a good option at this time. Education on modifications such as bed level dressing/bathing, reports that she already does this at home sometimes. Education OT Patient Education: Correct positioning, Progress toward Goal/Update tx plan, Purpose of tx/functional activities, Reviewed precautions, Safety issues, Transfer techniques Teaching Recipient: Patient, Family Teaching Methods: Discussion Response to Teaching: Reinforcement Needed OT Fdc Goals Hiv/Aids Care Nurse Goals Time Frame: Aug 07, 2022 Eating (QC): 5 Oral Hygiene (QC): 4 Toileting Hygiene (QC): 3 Shower/Bathe Self (QC): 2 Upper Body Dressing (QC): 3 Lower Body Dressing (QC): 2 On/Off Footwear (QC): 2 1=Demonstrate adherence to instructed precautions during ADL tasks. 2=Patient will verbalize/demonstrate understanding of assistive devices/modifications for ADL. 3=Patient will improve strength/tolerance for activity to enable patient to perform ADL's. OT Education/Plan Problem List/Assessment Assessment: Decreased Activ Tolerance, Decreased Safety Aware, Decreased UE Strength, Dependent Transfers, Impaired Bed Mobility, Impaired Cognition, Impaired Funct Balance, Impaired Self-Care Skills, Restricted Funct UE ROM Discharge Recommendations Plan/Recommendations: Continue POC Therapy Discharge Recommendati: Post Acute OT Treatment Plan/Plan of Care Treatment,Training & Education: Yes Patient would benefit from OT for education, treatment and training to promote independence in ADL's, mobility, safety and/or upper extremity function for ADL's. Plan of Care: ADL Retraining, Caregiver Training, Functional Mobility, Group Exercise/Act as Ind, UE Funct Exercise/Act, W/C Management Training Treatment Duration: Aug 07, 2022 Frequency: 3 times per week (3-5x/week) Estimated Hrs Per Day: .25 hour per day Rehab Potential: Poor Time/GCodes Start Time: 10:56 Stop Time: 11:06 Total Time Billed (hr/min): 10 Billed Treatment Time 1 visit Sona Jolley OT Jul 17, 2022 11:59
[2022-07-17 16:36] VITALS: BP 147/20
[2022-07-17 20:08] VITALS: BP 150/74
[2022-07-18] VITALS (12 sets, daily range): BP systolic 135–184; BP diastolic 62–86
[2022-07-18] MEDS: inSUlin ASPART (NovoLOG) 1 UNIT/0.01 ML (CHARGE PER UNIT) SC SCH ×4 (05:30→21:16)
[2022-07-18] MEDS: CATHETER FLUSH 10 ML SYR IVP SCH ×3 (05:51→21:16)
[2022-07-18] MEDS: LEVOTHYROXINE 125 MCG (LEVOTHROID) TABLET PO SCH (05:51)
[2022-07-18 06:36] LABS: BASOPHILS # (AUTO) 0.1 10^3/uL (0.0-0.1); BASOPHILS % (AUTO) 1 % (0-10); EOSINOPHILS # (AUTO) 0.3 10^3/uL (0.0-0.3); EOSINOPHILS % (AUTO) 2 % (0-10); HEMATOCRIT 21 % (40-54); LYMPHOCYTES # (AUTO) 3.7 10^3/uL (1.0-4.0); LYMPHOCYTES % (AUTO) 24 % (12-44); MEAN CORPUSCULAR HEMOGLOBIN 28 pg (25-34); MEAN CORPUSCULAR HGB CONC 31 g/dL (32-36); MEAN CORPUSCULAR VOLUME 91 fL (80-99); MEAN PLATELET VOLUME 9.6 fL (9.0-12.2); MONOCYTES # (AUTO) 1.1 10^3/uL (0.0-1.0); MONOCYTES % (AUTO) 7 % (0-12); NEUTROPHILS # (AUTO) 10.3 10^3/uL (1.8-7.8); NEUTROPHILS % (AUTO) 66 % (42-75); PLATELET COUNT 648 10^3/uL (130-400); WHITE BLOOD COUNT 15.6 10^3/uL (4.3-11.0)
[2022-07-18 06:38] LABS: HEMOGLOBIN 6.5 g/dL (13.3-17.7)
[2022-07-18] MEDS ORDERED: NS IV 500 ML 500 ML IV SCH (06:45)
[2022-07-18 06:58] LABS: ALBUMIN 2.4 GM/DL (3.2-4.5); POTASSIUM 4.5 MMOL/L (3.6-5.0)
[2022-07-18 06:59] LABS: CALCIUM 8.9 MG/DL (8.5-10.1)
[2022-07-18 07:00] LABS: TOTAL PROTEIN 7.6 GM/DL (6.4-8.2)
[2022-07-18 07:02] LABS: BILIRUBIN,TOTAL 0.4 MG/DL (0.1-1.0)
[2022-07-18 07:04] LABS: CREATININE SERUM 1.61 MG/DL (0.60-1.30)
--- NOTE | 2022-07-18 07:15 | Progress Note - Surgery ---
KEVIN MCCARTY 07/18/22 0715: Subjective Date Seen by a Provider: Jul 18, 2022 Time Seen by a Provider: 07:10 Subjective/Events-last exam Patient is awake and alert. Patient reports that his pain is well controlled. Patient was fitted yesterday for a prosthetic. Patient was slightly agitated this morning and repeatedly stated he wanted to go home. Review of Systems General: No Chills, No Night Sweats HEENT: No Head Aches, No Visual Changes Pulmonary: No Dyspnea, No Cough Cardiovascular: No: Chest Pain, Palpitations Gastrointestinal: No: Nausea, Vomiting Genitourinary: No Dysuria, No Frequency Musculoskeletal: No: neck pain, shoulder pain Neurological: No: Weakness, Numbness Objective Exam Vital Signs Date Time Temp Pulse Resp B/P (MAP) Pulse Ox O2 Delivery O2 Flow Rate FiO2 07/18/22 04:19 36.8 76 20 135/62 (86) 96 Room Air 07/18/22 02:19 36.6 82 96 07/18/22 00:14 36.9 82 20 145/79 (101) 93 Room Air 07/17/22 20:08 37.2 89 20 150/74 (99) 93 Room Air 07/17/22 20:03 93 Nasal Cannula 3.00 07/17/22 20:00 Room Air 07/17/22 16:36 37.2 82 20 147/20 (62) 95 Room Air 07/17/22 11:39 36.7 76 18 150/76 (100) 98 Nasal Cannula 3.00 07/17/22 08:00 98 Nasal Cannula 2.00 07/17/22 07:36 37.2 80 20 116/69 (85) 98 Nasal Cannula 3.00 I & O 07/18/22 07:00 Intake Total 4100 ml Output Total 2800 ml Balance 1300 ml Capillary Refill : Less Than 3 Seconds General Appearance: WD/WN, Anxious, Chronically ill HEENT: PERRL/EOMI, Normal ENT Inspection Neck: Non Tender, Supple Respiratory: Lungs Clear, Normal Breath Sounds Cardiovascular: Regular Rate, Rhythm, No Edema Peripheral Pulses: 2+ Radial Pulses (R), 2+ Radial Pulses (L) Gastrointestinal: non tender, soft Extremity: Normal Inspection, Non Tender, Other (Dressing has some drainage, incision still c/d/i) Neurologic/Psychiatric: Alert, Disoriented Skin: Normal Color, Warm/Dry Lymphatic: No Adenopathy Results Lab Laboratory Tests 07/17/22 11:06: Glucometer 244H 07/17/22 15:41: Glucometer 234H 07/17/22 20:31: Glucometer 223H 07/18/22 05:25: Glucometer 141H, White Blood Count 15.6H, Red Blood Count 2.32L, Hemoglobin 6.5*L, Hematocrit 21L, Mean Corpuscular Volume 91, Mean Corpuscular Hemoglobin 28, Mean Corpuscular Hemoglobin Concent 31L, Red Cell Distribution Width 14.2, Platelet Count 648H, Mean Platelet Volume 9.6, Immature Granulocyte % (Auto) 1, Neutrophils (%) (Auto) 66, Lymphocytes (%) (Auto) 24, Monocytes (%) (Auto) 7, Eosinophils (%) (Auto) 2, Basophils (%) (Auto) 1, Neutrophils # (Auto) 10.3H, Lymphocytes # (Auto) 3.7, Monocytes # (Auto) 1.1H, Eosinophils # (Auto) 0.3, Basophils # (Auto) 0.1, Immature Granulocyte # (Auto) 0.1, Sodium Level 136, Potassium Level 4.5, Chloride Level 105, Carbon Dioxide Level 23, Anion Gap 8, Blood Urea Nitrogen 16, Creatinine 1.61H, Estimat Glomerular Filtration Rate 46, BUN/Creatinine Ratio 10, Glucose Level 143H, Calcium Level 8.9, Corrected Calcium 10.2H, Total Bilirubin 0.4, Aspartate Amino Transf (AST/SGOT) 30, Alanine Aminotransferase (ALT/SGPT) 18, Alkaline Phosphatase 256H, Total Protein 7.6, Albumin 2.4L Microbiology 07/12/22 Gram Stain - Final, Complete 07/12/22 Wound Culture - Final, Complete Enterococcus faecalis Staphylococcus aureus Assessment/Plan Assessment/Plan Assessment/Plan Anemia S/P right BKA POD #4 Patient's hemoglobin is down to 6.5 from 7.0 yesterday. Transfuse with 1 unit of leukocyte-reduced RBCs. Monitor with labs daily and continue to transfuse as needed. Continue IV zosyn. Continue pain control with IV Dilaudid. KATTY PATRICK DO 07/18/22 4527: Subjective Subjective/Events-last exam Patient seems comfortable. Has some bleeding from right stump. No other complaints at this time. No family at bedside. Objective Exam General Appearance: Anxious, Chronically ill HEENT: PERRL/EOMI, Normal ENT Inspection Neck: Non Tender, Supple Respiratory: Chest Non Tender, No Accessory Muscle Use, No Respiratory Distress Cardiovascular: Regular Rate, Rhythm, No JVD Gastrointestinal: non tender, soft Extremity: Normal Inspection, Non Tender, Other (right bka stump, has some bleeding from it) Neurologic/Psychiatric: Alert, Disoriented Skin: Normal Color, Warm/Dry Lymphatic: No Adenopathy Assessment/Plan Assessment/Plan Assessment/Plan Anemia S/P right BKA Follow labs/hgb and transfuse as needed Hold antiplatelets/anticoagulatino Continue IV zosyn. Continue pain control Supervisory-Addendum Brief Verification & Attestation Participated in pt care: history, MDM, physical Personally performed: exam, history, MDM, supervision of care Care discussed with: Medical Student Procedures: n/a Results interpretation: Verified all documentation Verification and Attestation of Medical Student E/M Service A medical student performed and documented this service in my presence. I reviewed and verified all information documented by the medical student and made modifications to such information, when appropriate. I personally performed the physical exam and medical decision making. Katty Patrick, Jul 18, 2022,17:19 KEVIN MCCARTY Jul 18, 2022 07:15 KATTY PATRICK DO Jul 18, 2022 17:19
--- NOTE | 2022-07-18 08:19 | Cardiology Progress Note ---
Subjective Date Seen by Provider: Jul 18, 2022 Time Seen by Provider: 08:18 Subjective/Events-last exam Patient was seen at bedside, laying down comfortably, asking to go on No new complaint Review of Systems General: No Chills, No Night Sweats, No Fatigue, No Malaise, No Appetite, No Other HEENT: No Head Aches, No Visual Changes, No Eye Pain, No Ear Pain, No Dysphas ia, No Sinus Congestion, No Post Nasal Drip, No Sore Throat, No Other Pulmonary: No Dyspnea, No Cough, No Pleuritic Chest Pain, No Other Cardiovascular: No: Chest Pain, Palpitations, Orthopnea, Paroxysmal Noc. Dyspnea, Edema, Lt Headedness, Other Objective-Cardiology Exam Last Set of Vital Signs Vital Signs 07/12/22 07/17/22 07/18/22 00:27 20:03 07:42 Temp 36.6 Pulse 78 Resp 18 B/P (MAP) 161/86 (111) Pulse Ox 95 O2 Delivery Room Air O2 Flow Rate 3.00 FiO2 21 I&O Intake and Output 07/18/22 00:00 Intake Total 5250 ml Output Total 2900 ml Balance 2350 ml Intake Oral 1050 ml IV Total 4200 ml Output Urine Total 2900 ml # Bowel Movements 1 General: Alert, Cooperative, No Acute Distress HEENT: Atraumatic, PERRLA Neck: Supple, No JVD, No Thyromegaly Lungs: Clear to Auscultation, Normal Air Movement Heart: Regular Rate, Normal S1, Normal S2, No Murmurs Abdomen: Normal Bowel Sounds, Soft, No Tenderness, No Masses Extremities: Other (Right BKA) Skin: No Rashes, No Breakdown, No Significant Lesion Neuro: Normal Gait, Normal Speech, Strength at 5/5 X4 Ext, Normal Tone, Sensation Intact Psych/Mental Status: Other (patient was unable to answer most question. ) Results Lab Laboratory Tests 07/18/22 05:25 A/P-Cardiology Admission Diagnosis PVD HTN HLP DM Assessment/Plan Peripheral vascular disease, Ischemic gangrene of the right toe. Nonhealing ulcer. Peripheral angiogram was done on July 03, 2022 with balloon angioplasty to the right SFA, right tibioperoneal trunk and right posterior tibial artery. The anterior tibial artery is occluded and not reconstructed. No intervention was done on it. Status post amputation of the right second toe done by Dr. Dahl on July 04, 2022 Peripheral angiogram was done again on July 13, 2022, has occlusion of the distal posterior tibial artery, I was able to do balloon angioplasty to the posterior tibial artery down to the ankle, the peroneal artery is open. There is a total occlusion at the ostium of the anterior tibial artery that patient had right BKA, recovering slowly. Managed by medical team Anemia, monitor H&H Status post recent CVA, was transferred from [facility] to [facility] in [place]. Doing better at this time. Managed by medical team. Clinically stable Generalized malaise and weakness Hyperkalemia, was maintained on losartan as outpatient, I will d/c losartan at this time. Intolerant to CAIO inhibitor and/or ARB due to hyperkalemia Hyperlipidemia, maintained on Lipitor 80 mg daily Hypertension, monitor blood pressure Diabetes mellitus, followed and managed by primary care physician Twelve-lead EKG showed sinus rhythm with low voltage, nonspecific T wave abnormality History of tobaccoism in the remote past. BRITTANY CARRERO MD Jul 18, 2022 08:19
[2022-07-18] MEDS: ENOXAPARIN 40 MG/0.4 ML (LOVENOX) SYR SQ SCH (08:42)
[2022-07-18] MEDS: CLOPIDOGREL 75 MG (PLAVIX) TABLET PO SCH (09:10)
[2022-07-18] MEDS: ASPIRIN E.C. 81 MG (ECOTRIN) TAB PO SCH (09:10)
[2022-07-18] MEDS: MIRABEGRON 25 MG TAB (MYRBETRIQ) PO SCH (09:10)
[2022-07-18] MEDS: amLODIPine 5 MG (NORVASC) TAB PO SCH (09:10)
[2022-07-18] MEDS ORDERED: NS IV 500 ML 500 ML ONE (09:24)
--- NOTE | 2022-07-18 10:20 | Physical Therapy Daily Note ---
PT Daily Note-Current Subjective Patient is alert and mumbling. Unable to understand when patient talks. Mental Status Attachments: Gaffney Catheter, IV Transfers SCALE: Activities may be completed with or without assistive devices. 4-Hkldslkegm-vhntntj completes the activity by him/herself with no assistance from a helper. 5-Set-up or Clean-up Assistance-helper sets up or cleans up; patient completes activity. [place] assists only prior to or following the activity. 4-Supervision or Touching Assistance-helper provides verbal cues and/or touching/steadying and/or contact guard assistance as patient completes activity. Assistance may be provided throughout the activity or intermittently. 3-Partial/Moderate Assistance-helper does LESS THAN HALF the effort. [place] lifts, holds or supports trunk or limbs, but provides less than half the effort. 2-Substantial/Maximal Assistance-helper does MORE THAN HALF the effort. [place] lifts or holds trunk or limbs and provides more than half the effort. 2-Hmzykopfn-rsvssn does ALL the effort. Patient does none of the effort to complete the activity. Or, the assistance of 2 or more helpers is required for the patient to complete the activity. If activity was not attempted, code reason: 7-Patient Refused. 9-Not Applicable-not attempted and the patient did not perform the activity before the current illness, exacerbation or injury. 10-Not Attempted due to Environmental Limitations-(lack of equipment, weather restraints, etc.). 88-Not Attempted due to Medical Conditions or Safety Concerns. Roll Left & Right (QC): 1 Sit to Lying (QC): 1 Lying to Sitting/Side of Bed(Q: 1 Sit to Stand (QC): 7 Chair/Epz-gl-Vrmia Xfer(QC): 7 Weight Bearing Right Lower Extremity: Right Non Weight Bearing Left Lower Extremity: Left Full Weight Bearing Assessment Patient adamantly declined to sit EOB or up to chair and impulsively laid half in bed requiring dependent assist x 2 to attain proper positioning. Patient also required gown and bedding change due to stump drainage and incontinence. Patient is dependent with all mobility and resistive to OOB activity. PT Scientific Software Engineer Goals Residential Goals PT Residential Goals Time Frame: Jul 28, 2022 Roll Left & Right (QC): 4 Sit to Lying (QC): 4 Lying-Sitting on Side/Bed(QC): 4 Sit to Stand (QC): 4 Chair/Mbc-hy-Spbpo Xfer(QC): 3 Toilet Transfer (QC): 3 Does the Patient Walk: No and Walking Goal IS indicated Walk 10 feet (QC): 2 Does the Pt use WC or Scooter?: Yes Wheel 50 feet with 2 turns (QC: 4 Type: Manual Wheel 150 feet: 4 Type: Manual PT Plan Treatment/Plan Treatment Plan: Continue Plan of Care Treatment Plan: Bed Mobility, Education, Functional Activity [place], Functional Strength, Gait, Safety, Therapeutic Exercise, Transfers Treatment Duration: Aug 11, 2022 Frequency: 6 times per week Estimated Hrs Per Day: .25 hour per day Patient and/or Family Agrees t: Yes Time/GCodes Time In: 837 Time Out: 900 Total Billed Treatment Time: 23 Total Billed Treatment 1 visit FA x 2 23 min AUGUSTUS HOOPER PT Jul 18, 2022 10:20
--- NOTE | 2022-07-18 10:43 | Progress Note - Hospitalist ---
GURJIT BONILLA 07/18/22 1043: Subjective HPI/CC On Admission Date Seen by Provider: Jul 18, 2022 Time Seen by Provider: 10:40 Subjective/Events-last exam NO major issues at bedside He wants to go home and is slightly agitated about that Hb 6.5, transfused today Objective Exam Vital Signs Vital Signs Date Time Temp Pulse Resp B/P (MAP) Pulse Ox O2 Delivery O2 Flow Rate FiO2 07/18/22 10:02 36.8 78 12 158/74 96 Room Air 07/17/22 20:03 3.00 07/12/22 00:27 21 Capillary Refill : Less Than 3 Seconds General Appearance: No Apparent Distress, WD/WN HEENT: PERRL/EOMI, Moist Mucous Membranes Neck: Non Tender, Supple Respiratory: Chest Non Tender, No Accessory Muscle Use, No Respiratory Distress Cardiovascular: No Edema, No JVD Rectal: Deferred Extremity: Non Tender, No Calf Tenderness, Other (Right BKA ) Neurologic/Psychiatric: Alert Results/Procedures Lab Laboratory Tests 07/18/22 05:25 Patient resulted labs reviewed. Assessment/Plan Assessment and Plan Assess & Plan/Chief Complaint Assessment: s/p right BKA POD # 4 Post op anemia requiring 3rd unit of blood this admit CKD DM HTN PVD s/p 2nd intervention of right leg Confusion/delirium Plan: Transfuse prn Pain control KALLIE Bergeron DO 07/18/222024: Subjective Subjective/Events-last exam Transfusing today Sedated now Angry most of the time Review of Systems General: Fatigue, Malaise Objective Exam General Appearance: No Apparent Distress, WD/WN, Chronically ill Respiratory: Lungs Clear, Normal Breath Sounds Cardiovascular: Regular Rate, Rhythm Neurologic/Psychiatric: Disoriented Assessment/Plan Assessment and Plan Assess & Plan/Chief Complaint Transfuse prn Monitor BP Supervisory-Addendum Brief Verification & Attestation Participated in pt care: history, MDM, physical Personally performed: exam, history, MDM, supervision of care Care discussed with: Medical Student Procedures: n/a Results interpretation: Verified all documentation Verification and Attestation of Medical Student E/M Service A medical student performed and documented this service in my presence. I reviewed and verified all information documented by the medical student and made modifications to such information, when appropriate. I personally performed the physical exam and medical decision making. Kallie Jiang, Jul 18, 2022,20:23 GURJIT BONILLA Jul 18, 2022 10:43 KALLIE JIANG DO Jul 18, 2022 20:25
--- NOTE | 2022-07-18 11:27 | Occ Therapy Progress Note ---
Therapy Progress Note Pt getting blood transfusion at OT arrival. Thus, no OOB/EOB activity performed. Pt refusing all bed level activities at this time. OT will attempt again 07/19/22 if medically appropriate. 1 visit Sona Waite OT Jul 18, 2022 11:27
[2022-07-18] MEDS: NS IV 1000 ML 1,000 ML IV SCH ×2 (12:23→12:41)
[2022-07-19] MEDS: NS IV 1000 ML 1,000 ML IV SCH ×2 (03:31→20:08)
[2022-07-19 03:36] VITALS: BP 170/77
[2022-07-19] MEDS: LEVOTHYROXINE 125 MCG (LEVOTHROID) TABLET PO SCH (04:52)
[2022-07-19] MEDS: CATHETER FLUSH 10 ML SYR IVP SCH ×3 (04:52→20:07)
[2022-07-19 05:59] LABS: BASOPHILS # (AUTO) 0.1 10^3/uL (0.0-0.1); BASOPHILS % (AUTO) 1 % (0-10); EOSINOPHILS # (AUTO) 0.2 10^3/uL (0.0-0.3); EOSINOPHILS % (AUTO) 1 % (0-10); HEMATOCRIT 24 % (40-54); HEMOGLOBIN 7.9 g/dL (13.3-17.7); LYMPHOCYTES % (AUTO) 17 % (12-44); MEAN CORPUSCULAR HEMOGLOBIN 29 pg (25-34); MEAN CORPUSCULAR HGB CONC 33 g/dL (32-36); MEAN CORPUSCULAR VOLUME 88 fL (80-99); MEAN PLATELET VOLUME 9.5 fL (9.0-12.2); MONOCYTES # (AUTO) 1.1 10^3/uL (0.0-1.0); MONOCYTES % (AUTO) 6 % (0-12); NEUTROPHILS # (AUTO) 13.3 10^3/uL (1.8-7.8); NEUTROPHILS % (AUTO) 75 % (42-75); PLATELET COUNT 654 10^3/uL (130-400); WHITE BLOOD COUNT 17.9 10^3/uL (4.3-11.0)
[2022-07-19 06:15] LABS: ALBUMIN 2.6 GM/DL (3.2-4.5); POTASSIUM 4.9 MMOL/L (3.6-5.0)
[2022-07-19 06:16] LABS: CALCIUM 9.2 MG/DL (8.5-10.1)
[2022-07-19 06:18] LABS: TOTAL PROTEIN 8.2 GM/DL (6.4-8.2)
[2022-07-19 06:19] LABS: BILIRUBIN,TOTAL 0.4 MG/DL (0.1-1.0)
[2022-07-19 06:21] LABS: CREATININE SERUM 1.47 MG/DL (0.60-1.30)
[2022-07-19] MEDS: inSUlin ASPART (NovoLOG) 1 UNIT/0.01 ML (CHARGE PER UNIT) SC SCH ×4 (06:26→20:58)
--- NOTE | 2022-07-19 06:48 | Progress Note - Surgery ---
KEVIN MCCARTY 07/19/22 0648: Subjective Date Seen by a Provider: Jul 19, 2022 Time Seen by a Provider: 06:43 Subjective/Events-last exam Patient is awake and alert this morning. Patient reports that his pain is well controlled. He has some bleeding from the right stump, but has no new complaints. Review of Systems General: No Chills, No Night Sweats HEENT: No Head Aches, No Visual Changes Pulmonary: No Dyspnea, No Cough Cardiovascular: No: Chest Pain, Palpitations Gastrointestinal: No: Nausea, Vomiting Genitourinary: No Dysuria, No Frequency Musculoskeletal: No: neck pain, shoulder pain Neurological: No: Weakness, Numbness Objective Exam Vital Signs Date Time Temp Pulse Resp B/P (MAP) Pulse Ox O2 Delivery O2 Flow Rate FiO2 07/19/22 03:36 36.4 80 18 170/77 (108) 95 Room Air 07/18/22 23:54 36.3 82 20 168/79 (108) 97 Room Air 07/18/22 20:00 Room Air 07/18/22 20:00 36.9 83 18 159/72 (101) 95 Room Air 07/18/22 16:24 157/83 (107) 07/18/22 16:14 36.1 80 16 184/77 (112) 95 Room Air 07/18/22 12:36 36.7 84 16 148/66 96 Room Air 07/18/22 12:00 36.7 79 18 160/78 (105) Room Air 07/18/22 10:02 36.8 78 12 158/74 96 Room Air 07/18/22 09:45 36.7 84 12 166/70 07/18/22 08:00 Room Air 07/18/22 07:42 36.6 78 18 161/86 (111) 95 Room Air I & O 07/19/22 07:00 Intake Total 2350 ml Output Total 2800 ml Balance -450 ml Capillary Refill : Less Than 3 Seconds General Appearance: No Apparent Distress, WD/WN, Chronically ill HEENT: PERRL/EOMI, Normal ENT Inspection Neck: Non Tender, Supple Respiratory: Lungs Clear, Normal Breath Sounds Cardiovascular: Regular Rate, Rhythm, No Edema Peripheral Pulses: 2+ Radial Pulses (R), 2+ Radial Pulses (L) Gastrointestinal: non tender, soft Extremity: Normal Inspection, Non Tender, Other (right bka stump, has some bleeding from it) Neurologic/Psychiatric: Alert, Disoriented Skin: Normal Color, Warm/Dry Lymphatic: No Adenopathy Results Lab Laboratory Tests 07/18/22 10:28: Glucometer 246H 07/18/22 15:17: Glucometer 188H 07/18/22 20:13: Glucometer 209H 07/19/22 05:12: White Blood Count 17.9H, Red Blood Count 2.72L, Hemoglobin 7.9#L, Hematocrit 24L , Mean Corpuscular Volume 88, Mean Corpuscular Hemoglobin 29, Mean Corpuscular Hemoglobin Concent 33, Red Cell Distribution Width 14.1, Platelet Count 654H, Mean Platelet Volume 9.5, Immature Granulocyte % (Auto) 1, Neutrophils (%) (Auto) 75, Lymphocytes (%) (Auto) 17, Monocytes (%) (Auto) 6, Eosinophils (%) (Auto) 1, Basophils (%) (Auto) 1, Neutrophils # (Auto) 13.3H, Lymphocytes # (Auto) 3.0, Monocytes # (Auto) 1.1H, Eosinophils # (Auto) 0.2, Basophils # (Auto) 0.1, Immature Granulocyte # (Auto) 0.1, Sodium Level 133L, Potassium Level 4.9, Chloride Level 102, Carbon Dioxide Level 21, Anion Gap 10, Blood Urea Nitrogen 20H, Creatinine 1.47H, Estimat Glomerular Filtration Rate 51, BUN/Creatinine Ratio 14, Glucose Level 191H, Calcium Level 9.2, Corrected Calcium 10.3H, Total Bilirubin 0.4, Aspartate Amino Transf (AST/SGOT) 34, Alanine Aminotransferase (ALT/SGPT) 20, Alkaline Phosphatase 260H, Total Protein 8.2, Albumin 2.6L Microbiology 07/12/22 Gram Stain - Final, Complete 07/12/22 Wound Culture - Final, Complete Enterococcus faecalis Staphylococcus aureus Assessment/Plan Assessment/Plan Assessment/Plan Anemia S/P right BKA POD #5 Follow labs/hgb and transfuse as needed Hold antiplatelets/anticoagulation Continue pain control KATTY PATRICK DO 07/19/22 1533: Subjective Subjective/Events-last exam Patient alert. Laying in bed. Right leg with slight bleeding still. Anticoag ulation/antiplatelet on hold. Wbc increasing started on Augmentin. No family at bedside. Objective Exam General Appearance: No Apparent Distress, WD/WN, Chronically ill HEENT: PERRL/EOMI, Normal ENT Inspection Neck: Non Tender, Supple Respiratory: Chest Non Tender, No Accessory Muscle Use, No Respiratory Distress Cardiovascular: Regular Rate, Rhythm, No JVD Gastrointestinal: non tender, soft Extremity: Other (right bka stump, has some bleeding from it) Neurologic/Psychiatric: Alert, Disoriented Skin: Normal Color, Warm/Dry Lymphatic: No Adenopathy Assessment/Plan Assessment/Plan Assessment/Plan Anemia S/P right BKA Follow labs/hgb and transfuse as needed WBC increasing placed on Augmentin Hold antiplatelets/anticoagulation Continue pain control Supervisory-Addendum Brief Verification & Attestation Participated in pt care: history, MDM, physical Personally performed: exam, history, MDM, supervision of care Care discussed with: Medical Student Procedures: n/a Results interpretation: Verified all documentation Verification and Attestation of Medical Student E/M Service A medical student performed and documented this service in my presence. I reviewed and verified all information documented by the medical student and made modifications to such information, when appropriate. I personally performed the physical exam and medical decision making. Katty Patrick, Jul 19, 2022,15:33 KEVIN MCCARTY Jul 19, 2022 06:48 KATTY PATRICK DO Jul 19, 2022 15:33
[2022-07-19 07:59] VITALS: BP 168/74
--- NOTE | 2022-07-19 08:35 | Cardiology Progress Note ---
Subjective Date Seen by Provider: Jul 19, 2022 Time Seen by Provider: 08:33 Subjective/Events-last exam Patient is sitting up in bed, eating breakfast, denies pain this morning. Denies any chest pain or dyspnea. Objective-Cardiology Exam Last Set of Vital Signs Vital Signs 07/17/22 07/19/22 20:03 12:00 Temp 36.0 Pulse 80 Resp 20 B/P (MAP) 173/77 (109) Pulse Ox 96 O2 Delivery Room Air O2 Flow Rate 3.00 I&O l Intake and Output 07/19/22 00:00 Intake Total 2200 ml Output Total 2650 ml Balance -450 ml Intake Oral 920 ml IV Total 1010 ml Other 270 ml Output Urine Total 2650 ml # Bowel Movements 2 General: Alert, Cooperative, No Acute Distress HEENT: Atraumatic, PERRLA Neck: Supple, No JVD, No Thyromegaly Lungs: Clear to Auscultation, Normal Air Movement Heart: Regular Rate, Normal S1, Normal S2, No Murmurs Abdomen: Normal Bowel Sounds, Soft, No Tenderness, No Masses Extremities: Other (Right BKA) Skin: No Rashes, No Breakdown, No Significant Lesion Neuro: Normal Gait, Normal Speech, Strength at 5/5 X4 Ext, Normal Tone, Sensation Intact Psych/Mental Status: Other (patient was unable to answer most question. ) Results Lab Laboratory Tests 07/19/22 05:12 A/P-Cardiology Admission Diagnosis PVD HTN HLP DM Assessment/Plan Peripheral vascular disease, Ischemic gangrene of the right toe. Nonhealing ulcer. Peripheral angiogram was done on July 03, 2022 with balloon angioplasty to the right SFA, right tibioperoneal trunk and right posterior tibial artery. The anterior tibial artery is occluded and not reconstructed. No intervention was done on it. Status post amputation of the right second toe done by Dr. Dahl on July 04, 2022 Peripheral angiogram was done again on July 13, 2022, has occlusion of the distal posterior tibial artery, I was able to do balloon angioplasty to the posterior tibial artery down to the ankle, the peroneal artery is open. There is a total occlusion at the ostium of the anterior tibial artery S/P right BKA, recovering slowly. Managed by medical team Anemia, monitor H&H Status post recent CVA, was transferred from [facility] to [facility] in [facility] in. Doing better at this time. Managed by medical team. Clinically stable Generalized malaise and weakness Hyperkalemia, was maintained on losartan as outpatient, improved after discontinuing Continue to monitor. Unable to tolerate CAIO-I or ARB d/t hyperkalemia. Hyperlipidemia, maintained on Lipitor 80 mg daily Hypertension, mildly elevated, monitor blood pressure Diabetes mellitus, followed and managed by primary care physician Twelve-lead EKG showed sinus rhythm with low voltage, nonspecific T wave abnormality History of tobaccoism in the remote past. Supervisory-Addendum Brief Supervisory Addendum Participated in pt care: history, MDM, physical Personally performed: exam, history, MDM Care discussed with: PAWEL Results interpretation: Verified all documentation Notes: Patient was seen and evaluated with Mone, examination performed, management plan was discussed, agree with the current scribed note, I made few changes to the note using Italic font Patient was seen at bedside, laying down comfortably Blood pressure is elevated I increase amlodipine to 10 mg Monitor blood pressure and electrolytes. MONE GALE Jul 19, 2022 08:35 BRITTANY CARRERO MD Jul 19, 2022 15:45
[2022-07-19] MEDS: AUGMENTIN 875 MG TAB (AMOXICILLIN/CLAVULANATE) PO SCH ×2 (09:04→16:55)
[2022-07-19] MEDS: MIRABEGRON 25 MG TAB (MYRBETRIQ) PO SCH (09:04)
[2022-07-19] MEDS: amLODIPine 10 MG (NORVASC) TAB PO SCH (09:04)
--- NOTE | 2022-07-19 11:38 | Progress Note - Hospitalist ---
GURJIT BONILLA 07/19/22 1138: Subjective HPI/CC On Admission Date Seen by Provider: Jul 19, 2022 Time Seen by Provider: 11:32 Subjective/Events-last exam Patient feeling better today. Hb is 7.9 today after transfusion. Pain is well controlled. No new complaints. Objective Exam Vital Signs Vital Signs Date Time Temp Pulse Resp B/P (MAP) Pulse Ox O2 Delivery O2 Flow Rate FiO2 07/19/22 08:00 Room Air 07/19/22 07:59 36.0 77 16 168/74 (105) 96 07/17/22 20:03 3.00 Capillary Refill : Less Than 3 Seconds General Appearance: No Apparent Distress, WD/WN HEENT: PERRL/EOMI, Moist Mucous Membranes Neck: Non Tender, Supple Respiratory: Chest Non Tender, No Accessory Muscle Use, No Respiratory Distress Cardiovascular: No Edema, No JVD Gastrointestinal: Non Tender, Soft Rectal: Deferred Back: Normal Inspection, No Vertebral Tenderness Extremity: Other (right BKA ) Neurologic/Psychiatric: Alert, Normal Mood/Affect Skin: Normal Color, Warm/Dry Lymphatic: No Adenopathy Results/Procedures Lab Laboratory Tests 07/19/22 05:12 Patient resulted labs reviewed. Assessment/Plan Assessment and Plan Assess & Plan/Chief Complaint Assessment: s/p right BKA POD # 5 Post op anemia requiring 3rd unit of blood this admit CKD DM HTN PVD s/p 2nd intervention of right leg Confusion/delirium Plan: Monitor BP Pain control KALLIE VARGAS DO 07/19/222028: Subjective Subjective/Events-last exam Pt is doing a lot better [place] will be disposition Hemoglobin of 7.9 after the transfusion Platelet count of 654 Placed on Augmentin to finish out the antibiotic Supervisory-Addendum Brief Verification & Attestation Participated in pt care: history, MDM, physical Personally performed: exam, history, MDM, supervision of care Care discussed with: Medical Student Procedures: n/a Results interpretation: Verified all documentation Verification and Attestation of Medical Student E/M Service A medical student performed and documented this service in my presence. I reviewed and verified all information documented by the medical student and made modifications to such information, when appropriate. I personally performed the physical exam and medical decision making. Kallie Vargas Jul 19, 2022,20:28 GURJIT BONILLA Jul 19, 2022 11:38 KALLIE VARGAS DO Jul 19, 2022 20:29
[2022-07-19 12:00] VITALS: BP 173/77
--- NOTE | 2022-07-19 12:01 | Occupational Ther Daily Note ---
OT Current Status-Daily Note Subjective Pt was slumped over/sitting up in bed eating, with present in room. Appearance Pt was left sitting up in a more appropriate eating position with and nu rsing present in room. All needs within reach. Mental Status/Objective Patient Orientation: Confused Attachments: Gaffney Catheter, IV ADL-Treatment Therapy Code Descriptions/Definitions Functional [place] Measure: 0=Not Assessed/NA 4=Minimal Assistance 1=Total Assistance 5=Supervision or Setup 2=Maximal Assistance 6=Modified [place] 3=Moderate Assistance 7=Complete IndependenceSCALE: Activities may be completed with or without assistive devices. 5-Avvsbbuiyb-idgqniv completes the activity by him/herself with no assistance from a helper. 5-Set-up or Clean-up Assistance-helper sets up or cleans up; patient completes activity. [place] assists only prior to or following the activity. 4-Supervision or Touching Assistance-helper provides verbal cues and/or touching/steadying and/or contact guard assistance as patient completes activity. Assistance may be provided throughout the activity or intermittently. 3-Partial/Moderate Assistance-helper does LESS THAN HALF the effort. [place] lifts, holds or supports trunk or limbs, but provides less than half the effort. 2-Substantial/Maximal Assistance-helper does MORE THAN HALF the effort. [place] lifts or holds trunk or limbs and provides more than half the effort. 7-Onjqmgdfr-ihbqza does ALL the effort. Patient does none of the effort to complete the activity. Or, the assistance of 2 or more helpers is required for the patient to complete the activity. If activity was not attempted, code reason: 7-Patient Refused. 9-Not Applicable-not attempted and the patient did not perform the activity before the current illness, exacerbation or injury. 10-Not Attempted due to Environmental Limitations-(lack of equipment, weather restraints, etc.). 88-Not Attempted due to Medical Conditions or Safety Concerns. Eating (QC): 3 Pt was being fed by upon arrival in an improper eating position. Pt required total assist x2 to be moved up in bed and properly positioned for eating. Pt was given cues for assisting with bed mobility, with poor carry over with cues. Pt needed min assist for correct orientation of holding fork when eating. Pt able to stab strawberry and bring to mouth by self. Education OT Patient Education: Correct positioning, Disease process, Modified ADL techniques, Progress toward Goal/Update tx plan, Purpose of tx/functional activities, Rehab process, Safety issues Teaching Recipient: Patient, Family Teaching Methods: Demonstration, Discussion Response to Teaching: Verbalize Understanding, Return Demonstration, Reinfor cement Needed OT Busser Goals Busser Goals Time Frame: Aug 07, 2022 Eating (QC): 5 Oral Hygiene (QC): 4 Toileting Hygiene (QC): 3 Shower/Bathe Self (QC): 2 Upper Body Dressing (QC): 3 Lower Body Dressing (QC): 2 On/Off Footwear (QC): 2 1=Demonstrate adherence to instructed precautions during ADL tasks. 2=Patient will verbalize/demonstrate understanding of assistive devices/modifications for ADL. 3=Patient will improve strength/tolerance for activity to enable patient to perform ADL's. OT Education/Plan Problem List/Assessment Assessment: Decreased Activ Tolerance, Decreased Safety Aware, Decreased UE Strength, Dependent Transfers, Impaired Bed Mobility, Impaired Cognition, Impaired Coordination, Impaired Funct Balance, Impaired I ADL's, Impaired Self- Care Skills, Restricted Funct UE ROM Discharge Recommendations Plan/Recommendations: Continue POC Therapy Discharge Recommendati: Assisted Living Treatment Plan/Plan of Care Treatment,Training & Education: Yes Patient would benefit from OT for education, treatment and training to promote independence in ADL's, mobility, safety and/or upper extremity function for ADL's. Plan of Care: ADL Retraining, Caregiver Training, Functional Mobility, Group Exercise/Act as Ind, UE Funct Exercise/Act, W/C Management Training Treatment Duration: Aug 07, 2022 Frequency: 3 times per week (3-5x/week) Estimated Hrs Per Day: .25 hour per day Rehab Potential: Poor Time/GCodes Start Time: 11:44 Stop Time: 11:52 Total Time Billed (hr/min): 8 Billed Treatment Time 1 visit ADL Sona Waite OT Jul 19, 2022 12:01
--- NOTE | 2022-07-19 13:38 | Physical Therapy Daily Note ---
PT Daily Note-Current Subjective Pt. in bed, at bedside. Pt. very difficult to understand but states multiple times that he wants out of the hospital. After Rx pt. looked at his and stated he wants to . Pt. was belligerent during rx , yelling a couple times for therapists to stop the Rx but stating again he wants out of here. Attempted to communicate that safe mobility is necessary to discharge . Pain Location: No Pain Reported Appearance yellow/sallow pale facial color, drainage from residual limb incision conts, wou nd care here to change dressing and inspect Mental Status Patient Orientation: Confused Transfers SCALE: Activities may be completed with or without assistive devices. 9-Fiipqmbent-ciylrjt completes the activity by him/herself with no assistance from a helper. 5-Set-up or Clean-up Assistance-helper sets up or cleans up; patient completes activity. [place] assists only prior to or following the activity. 4-Supervision or Touching Assistance-helper provides verbal cues and/or touching/steadying and/or contact guard assistance as patient completes activity. Assistance may be provided throughout the activity or intermittently. 3-Partial/Moderate Assistance-helper does LESS THAN HALF the effort. [place] lifts, holds or supports trunk or limbs, but provides less than half the effort. 2-Substantial/Maximal Assistance-helper does MORE THAN HALF the effort. [place] lifts or holds trunk or limbs and provides more than half the effort. 5-Gfujcidbl-cajuuu does ALL the effort. Patient does none of the effort to complete the activity. Or, the assistance of 2 or more helpers is required for the patient to complete the activity. If activity was not attempted, code reason: 7-Patient Refused. 9-Not Applicable-not attempted and the patient did not perform the activity before the current illness, exacerbation or injury. 10-Not Attempted due to Environmental Limitations-(lack of equipment, weather restraints, etc.). 88-Not Attempted due to Medical Conditions or Safety Concerns. Roll Left & Right (QC): 3 Sit to Lying (QC): 1 Lying to Sitting/Side of Bed(Q: 1 Sit to Stand (QC): 1 max to mod assist side to sit , 3 ttempts made at max assist of 2 to stand with different forms of support , ie FWW, OPERATIONAL ASSISTANT, and stabilizing pts left knee and foot to attempt to rise, no complete stance ever completed. 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 with significant struggle regaining mobility PT Reception Specialist Goals Reception Specialist Goals PT Reception Specialist Goals Time Frame: Jul 28, 2022 Roll Left & Right (QC): 4 Sit to Lying (QC): 4 Lying-Sitting on Side/Bed(QC): 4 Sit to Stand (QC): 4 Chair/Xzr-mq-Qzvgh Xfer(QC): 3 Toilet Transfer (QC): 3 Does the Patient Walk: No and Walking Goal IS indicated Walk 10 feet (QC): 2 Does the Pt use WC or Scooter?: Yes Wheel 50 feet with 2 turns (QC: 4 Type: Manual Wheel 150 feet: 4 Type: Manual PT Plan Treatment/Plan Treatment Plan: Continue Plan of Care Treatment Plan: Bed Mobility, Education, Functional Activity [place], Functional Strength, Gait, Safety, Therapeutic Exercise, Transfers Treatment Duration: Aug 11, 2022 Frequency: 6 times per week Estimated Hrs Per Day: .25 hour per day Patient and/or Family Agrees t: Yes Safety Risks/Education Patient Education: Transfer Techniques, Correct Positioning, Disease Process, Safety Issues Teaching Recipient: Patient, Family Response to Teaching: Reinforcement Needed Time/GCodes Time In: 1315 Time Out: 1335 Total Billed Treatment Time: 25 Total Billed Treatment 1,FA25m DANIELLE VILLARREAL MANAGER SAS Jul 19, 2022 13:38
[2022-07-19] MEDS: HYDROcodone/APAP 5 MG/325 MG (LORTAB) TAB PO PRN (13:50)
[2022-07-19 16:17] VITALS: BP 148/67
[2022-07-19 20:05] VITALS: BP 150/69
[2022-07-19 23:19] VITALS: BP 135/63
[2022-07-20] VITALS (8 sets, daily range): BP systolic 136–182; BP diastolic 63–80
[2022-07-20] MEDS: LEVOTHYROXINE 125 MCG (LEVOTHROID) TABLET PO SCH (05:21)
[2022-07-20] MEDS: CATHETER FLUSH 10 ML SYR IVP SCH ×3 (05:21→20:35)
[2022-07-20 06:24] LABS: ALBUMIN 2.4 GM/DL (3.2-4.5); BASOPHILS # (AUTO) 0.1 10^3/uL (0.0-0.1); BASOPHILS % (AUTO) 1 % (0-10); EOSINOPHILS # (AUTO) 0.3 10^3/uL (0.0-0.3); EOSINOPHILS % (AUTO) 2 % (0-10); HEMATOCRIT 21 % (40-54); LYMPHOCYTES # (AUTO) 3.8 10^3/uL (1.0-4.0); LYMPHOCYTES % (AUTO) 26 % (12-44); MEAN CORPUSCULAR HEMOGLOBIN 29 pg (25-34); MEAN CORPUSCULAR HGB CONC 32 g/dL (32-36); MEAN CORPUSCULAR VOLUME 90 fL (80-99); MEAN PLATELET VOLUME 9.6 fL (9.0-12.2); MONOCYTES # (AUTO) 1.1 10^3/uL (0.0-1.0); MONOCYTES % (AUTO) 7 % (0-12); NEUTROPHILS # (AUTO) 9.4 10^3/uL (1.8-7.8); NEUTROPHILS % (AUTO) 64 % (42-75); PLATELET COUNT 638 10^3/uL (130-400); POTASSIUM 4.6 MMOL/L (3.6-5.0); WHITE BLOOD COUNT 14.7 10^3/uL (4.3-11.0)
[2022-07-20 06:25] LABS: CALCIUM 8.8 MG/DL (8.5-10.1)
[2022-07-20 06:26] LABS: HEMOGLOBIN 6.8 g/dL (13.3-17.7); TOTAL PROTEIN 7.6 GM/DL (6.4-8.2)
[2022-07-20 06:28] LABS: BILIRUBIN,TOTAL 0.3 MG/DL (0.1-1.0)
[2022-07-20 06:30] LABS: CREATININE SERUM 1.62 MG/DL (0.60-1.30)
[2022-07-20] MEDS: inSUlin ASPART (NovoLOG) 1 UNIT/0.01 ML (CHARGE PER UNIT) SC SCH ×4 (06:35→20:34)
[2022-07-20] MEDS ORDERED: NS IV 500 ML 500 ML IV SCH (06:45)
--- NOTE | 2022-07-20 06:45 | Progress Note - Surgery ---
KEVIN MCCARTY 07/20/22 0645: Subjective Date Seen by a Provider: Jul 20, 2022 Time Seen by a Provider: 06:42 Subjective/Events-last exam Patient is awake and alert in his bed this morning with his in the room as well. Patient's pain is well controlled and he reports no new symptoms. Review of Systems General: No Chills, No Night Sweats HEENT: No Head Aches, No Visual Changes Pulmonary: No Dyspnea, No Cough Cardiovascular: No: Chest Pain, Palpitations Gastrointestinal: No: Nausea, Vomiting Genitourinary: No Dysuria, No Frequency Musculoskeletal: No: neck pain, shoulder pain Neurological: No: Weakness, Numbness Objective Exam Vital Signs Date Time Temp Pulse Resp B/P (MAP) Pulse Ox O2 Delivery O2 Flow Rate FiO2 07/20/22 04:01 36.3 81 18 143/64 (90) 95 Room Air 07/19/22 23:19 36.6 81 22 135/63 (87) 94 Room Air 07/19/22 20:11 Room Air 07/19/22 20:05 36.8 84 20 150/69 (96) 95 Room Air 07/19/22 19:37 93 Nasal Cannula 3.00 07/19/22 16:17 36.8 79 20 148/67 (94) 95 Room Air 07/19/22 12:00 36.0 80 20 173/77 (109) 96 Room Air 07/19/22 08:00 Room Air 07/19/22 07:59 36.0 77 16 168/74 (105) 96 Room Air I & O 07/20/22 07:00 Intake Total 1180 ml Output Total 2500 ml Balance -1320 ml Capillary Refill : Less Than 3 Seconds General Appearance: No Apparent Distress, WD/WN, Chronically ill HEENT: PERRL/EOMI, Normal ENT Inspection Neck: Non Tender, Supple Respiratory: Chest Non Tender, No Accessory Muscle Use, No Respiratory Distress Cardiovascular: Regular Rate, Rhythm, No JVD Peripheral Pulses: 2+ Radial Pulses (R), 2+ Radial Pulses (L) Gastrointestinal: non tender, soft Extremity: Other (right bka stump, has some bleeding from it) Neurologic/Psychiatric: Alert, Disoriented Skin: Normal Color, Warm/Dry Lymphatic: No Adenopathy Results Lab Laboratory Tests 07/19/22 12:44: Lab Scanned Report Transfusion Reaction Form 07/19/22 13:38: Glucometer 271H 07/19/22 15:57: Glucometer 280H 07/19/22 20:36: Glucometer 153H 07/20/22 05:30: White Blood Count 14.7H, Red Blood Count 2.33L, Hemoglobin 6.8*L, Hematocrit 21L , Mean Corpuscular Volume 90, Mean Corpuscular Hemoglobin 29, Mean Corpuscular Hemoglobin Concent 32, Red Cell Distribution Width 14.1, Platelet Count 638H, Mean Platelet Volume 9.6, Immature Granulocyte % (Auto) 1, Neutrophils (%) (Auto) 64, Lymphocytes (%) (Auto) 26, Monocytes (%) (Auto) 7, Eosinophils (%) (Auto) 2, Basophils (%) (Auto) 1, Neutrophils # (Auto) 9.4H, Lymphocytes # (Auto) 3.8, Monocytes # (Auto) 1.1H, Eosinophils # (Auto) 0.3, Basophils # (Auto) 0.1, Immature Granulocyte # (Auto) 0.1, Sodium Level 135, Potassium Level 4.6, Chloride Level 105, Carbon Dioxide Level 20L, Anion Gap 10, Blood Urea Nitrogen 26H, Creatinine 1.62H, Estimat Glomerular Filtration Rate 45, BUN/Creatinine Ratio 16, Glucose Level 171H, Calcium Level 8.8, Corrected Calcium 10.1, Total Bilirubin 0.3, Aspartate Amino Transf (AST/SGOT) 23, Alanine Aminotransferase (ALT/SGPT) 18, Alkaline Phosphatase 203H, Total Protein 7.6, Albumin 2.4L Microbiology 07/12/22 Gram Stain - Final, Complete 07/12/22 Wound Culture - Final, Complete Enterococcus faecalis Staphylococcus aureus Assessment/Plan Assessment/Plan Assessment/Plan Anemia S/P right BKA Follow labs/hgb and transfuse as needed WBC improving, continue Augmentin Hold antiplatelets/anticoagulation Continue pain control KATTY PATRICK DO 07/20/22 1604: Subjective Subjective/Events-last exam Patient pain controlled. Worked with PT today and was able to stand on left leg. Denies n/v fever sweats chills shortness of breath or chest pain. at bedside. Objective Exam General Appearance: No Apparent Distress, Chronically ill HEENT: PERRL/EOMI, Normal ENT Inspection Neck: Non Tender, Supple Respiratory: Chest Non Tender, No Accessory Muscle Use, No Respiratory Distress Cardiovascular: Regular Rate, Rhythm, No JVD Gastrointestinal: non tender, soft Extremity: Other (right bka stump, bandage stable, no evidence of bleeding) Neurologic/Psychiatric: Alert, Disoriented Skin: Normal Color, Warm/Dry Lymphatic: No Adenopathy Assessment/Plan Assessment/Plan Assessment/Plan Anemia S/P right BKA Follow labs/hgb and transfuse as needed receiving prbc today WBC improving, continue Augmentin Hold antiplatelets/anticoagulation Continue pain control Supervisory-Addendum Brief Verification & Attestation Participated in pt care: history, MDM, physical Personally performed: exam, history, MDM, supervision of care Care discussed with: Medical Student Procedures: n/a Results interpretation: Verified all documentation Verification and Attestation of Medical Student E/M Service A medical student performed and documented this service in my presence. I reviewed and verified all information documented by the medical student and made modifications to such information, when appropriate. I personally performed the physical exam and medical decision making. Katty Patrick, Jul 20, 2022,16:04 KEVIN MCCARTY Jul 20, 2022 06:45 KATTY PATRICK DO Jul 20, 2022 16:04
[2022-07-20] MEDS: AUGMENTIN 875 MG TAB (AMOXICILLIN/CLAVULANATE) PO SCH ×2 (08:11→18:02)
[2022-07-20] MEDS: amLODIPine 10 MG (NORVASC) TAB PO SCH (08:11)
[2022-07-20] MEDS: MIRABEGRON 25 MG TAB (MYRBETRIQ) PO SCH (08:11)
--- NOTE | 2022-07-20 08:17 | Cardiology Progress Note ---
Subjective Date Seen by Provider: Jul 20, 2022 Time Seen by Provider: 08:16 Subjective/Events-last exam Patient was seen at bedside, laying down comfortably Feeling better No new complaint Review of Systems General: No Chills, No Night Sweats, No Fatigue, No Malaise, No Appetite, No Other HEENT: No Head Aches, No Visual Changes, No Eye Pain, No Ear Pain, No Dysphasia , No Sinus Congestion, No Post Nasal Drip, No Sore Throat, No Other Pulmonary: No Dyspnea, No Cough, No Pleuritic Chest Pain, No Other Cardiovascular: No: Chest Pain, Palpitations, Orthopnea, Paroxysmal Noc. Dyspnea, Edema, Lt Headedness, Other Objective-Cardiology Exam Last Set of Vital Signs Vital Signs 07/19/22 07/20/22 19:37 04:01 Temp 36.3 Pulse 81 Resp 18 B/P (MAP) 143/64 (90) Pulse Ox 95 O2 Delivery Room Air O2 Flow Rate 3.00 I&O l Intake and Output 07/20/22 00:00 Intake Total 1280 ml Output Total 2900 ml Balance -1620 ml Intake Oral 1280 ml Output Urine Total 2900 ml # Bowel Movements 3 General: Alert, Cooperative, No Acute Distress HEENT: Atraumatic, PERRLA Neck: Supple, No JVD, No Thyromegaly Lungs: Clear to Auscultation, Normal Air Movement Heart: Regular Rate, Normal S1, Normal S2, No Murmurs Abdomen: Normal Bowel Sounds, Soft, No Tenderness, No Masses Extremities: Other (Right BKA) Skin: No Rashes, No Breakdown, No Significant Lesion Neuro: Normal Gait, Normal Speech, Strength at 5/5 X4 Ext, Normal Tone, Sensation Intact Psych/Mental Status: Other (patient was unable to answer most question. ) Results Lab Laboratory Tests 07/20/22 05:30 A/P-Cardiology Admission Diagnosis PVD HTN HLP DM Assessment/Plan Peripheral vascular disease, Ischemic gangrene of the right toe. Nonhealing ulcer. Peripheral angiogram was done on July 03, 2022 with balloon angioplasty to the right SFA, right tibioperoneal trunk and right posterior tibial artery. The anterior tibial artery is occluded and not reconstructed. No intervention was done on it. Status post amputation of the right second toe done by Dr. Dahl on July 04, 2022 Peripheral angiogram was done again on July 13, 2022, has occlusion of the distal posterior tibial artery, I was able to do balloon angioplasty to the posterior tibial artery down to the ankle, the peroneal artery is open. There is a total occlusion at the ostium of the anterior tibial artery S/P right BKA, recovering slowly. Managed by medical team Anemia, Still dropping H&H I will stop Plavix and continue aspirin 81 mg daily Monitor H&H Status post recent CVA, was transferred from [facility] to [facility] in [place]. Doing better at this time. Managed by medical team. Clinically stable Generalized malaise and weakness Hyperkalemia, was maintained on losartan as outpatient, improved after discontinuing Continue to monitor. Unable to tolerate CAIO-I or ARB d/t hyperkalemia. Hyperlipidemia, maintained on Lipitor 80 mg daily Hypertension, mildly elevated, monitor blood pressure Diabetes mellitus, followed and managed by primary care physician Twelve-lead EKG showed sinus rhythm with low voltage, nonspecific T wave abnormality History of tobaccoism in the remote past. BRITTANY CARRERO MD Jul 20, 2022 08:17
--- NOTE | 2022-07-20 09:59 | Physical Therapy Daily Note ---
PT Daily Note-Current Subjective Patient and spouse agree to PT. Mental Status Attachments: Gaffney Catheter, IV Transfers SCALE: Activities may be completed with or without assistive devices. 8-Hdwxfymcry-uuqkftw completes the activity by him/herself with no assistance from a helper. 5-Set-up or Clean-up Assistance-helper sets up or cleans up; patient completes activity. [place] assists only prior to or following the activity. 4-Supervision or Touching Assistance-helper provides verbal cues and/or touching/steadying and/or contact guard assistance as patient completes activity. Assistance may be provided throughout the activity or intermittently. 3-Partial/Moderate Assistance-helper does LESS THAN HALF the effort. [place] lifts, holds or supports trunk or limbs, but provides less than half the effort. 2-Substantial/Maximal Assistance-helper does MORE THAN HALF the effort. [place] lifts or holds trunk or limbs and provides more than half the effort. 9-Aylmqbgdr-luklvv does ALL the effort. Patient does none of the effort to comp lete the activity. Or, the assistance of 2 or more helpers is required for the patient to complete the activity. If activity was not attempted, code reason: 7-Patient Refused. 9-Not Applicable-not attempted and the patient did not perform the activity before the current illness, exacerbation or injury. 10-Not Attempted due to Environmental Limitations-(lack of equipment, weather restraints, etc.). 88-Not Attempted due to Medical Conditions or Safety Concerns. Lying to Sitting/Side of Bed(Q: 2 Sit to Stand (QC): 1 Chair/Zvz-jn-Plvsc Xfer(QC): 1 dependent with sit to stand and SPT with blocking left knee Weight Bearing Right Lower Extremity: Right Non Weight Bearing Left Lower Extremity: Left Full Weight Bearing Exercises Supine Ex: Ankle pumps (left LE), Quad Set, Heel Slides, Straight leg raise, Hip abd/add Supine Reps: 10 (x 2 sets) Seated Therapy Exercises: Long arc quads, Hip flexion Seated Reps: 10 (x 3 sets) Assessment Patient up in recliner with needs met. AAROM and stretching right hamstring due to patient is displaying a mild contracture. Education with spouse on ROM to prevent this. Spouse demonstrates good technique with this exercise. PT Crew Scheduler Goals Crew Scheduler Goals PT Crew Scheduler Goals Time Frame: Jul 28, 2022 Roll Left & Right (QC): 4 Sit to Lying (QC): 4 Lying-Sitting on Side/Bed(QC): 4 Sit to Stand (QC): 4 Chair/Aki-lx-Hlcyy Xfer(QC): 3 Toilet Transfer (QC): 3 Does the Patient Walk: No and Walking Goal IS indicated Walk 10 feet (QC): 2 Does the Pt use WC or Scooter?: Yes Wheel 50 feet with 2 turns (QC: 4 Type: Manual Wheel 150 feet: 4 Type: Manual PT Plan Treatment/Plan Treatment Plan: Continue Plan of Care Treatment Plan: Bed Mobility, Education, Functional Activity [place], Functional Strength, Gait, Safety, Therapeutic Exercise, Transfers Treatment Duration: Aug 11, 2022 Frequency: 6 times per week Estimated Hrs Per Day: .25 hour per day Patient and/or Family Agrees t: Yes Time/GCodes Time In: 911 Time Out: 934 Total Billed Treatment Time: 23 Total Billed Treatment 1 visit EX x 2 23 min AUGUSTUS HOOPER PT Jul 20, 2022 09:59
--- NOTE | 2022-07-20 10:53 | Occupational Ther Daily Note ---
OT Current Status-Daily Note Subjective Pt in recliner with spouse in room at beginning of tx. Mental Status/Objective Attachments: Gaffney Catheter, IV ADL-Treatment Therapy Code Descriptions/Definitions Functional [place] Measure: 0=Not Assessed/NA 4=Minimal Assistance 1=Total Assistance 5=Supervision or Setup 2=Maximal Assistance 6=Modified [place] 3=Moderate Assistance 7=Complete IndependenceSCALE: Activities may be completed with or without assistive devices. 7-Kewurotfdy-hhmjzra completes the activity by him/herself with no assistance from a helper. 5-Set-up or Clean-up Assistance-helper sets up or cleans up; patient completes activity. [place] assists only prior to or following the activity. 4-Supervision or Touching Assistance-helper provides verbal cues and/or touching/steadying and/or contact guard assistance as patient completes activity. Assistance may be provided throughout the activity or intermittently. 3-Partial/Moderate Assistance-helper does LESS THAN HALF the effort. [place] lifts, holds or supports trunk or limbs, but provides less than half the effort. 2-Substantial/Maximal Assistance-helper does MORE THAN HALF the effort. [place] lifts or holds trunk or limbs and provides more than half the effort. 5-Dqwtmecih-jcvwxl does ALL the effort. Patient does none of the effort to complete the activity. Or, the assistance of 2 or more helpers is required for the patient to complete the activity. If activity was not attempted, code reason: 7-Patient Refused. 9-Not Applicable-not attempted and the patient did not perform the activity before the current illness, exacerbation or injury. 10-Not Attempted due to Environmental Limitations-(lack of equipment, weather restraints, etc.). 88-Not Attempted due to Medical Conditions or Safety Concerns. Other Treatment Pt declined ADLs at this time. Pt completed shoulder horizontal abduction and shoulder flexion 10x. Pt required ModA cueing from spouse and therapist to continue through exercises. Pt mumbled that he did not want to do any more exercises at this time. Therapist educated on purpose of therapy, spouse communicated reason to get stronger and to be able to go home and pt declined more therapy at this time. Therapist placed wash cloth in pts hand and pt completed face washing. Pt in recliner with call light in reach and all needs met. Education OT Patient Education: Rehab process Teaching Recipient: Patient, Family Teaching Methods: Discussion Response to Teaching: Reinforcement Needed OT Pen Tender Goals Mcfp Goals Time Frame: Aug 07, 2022 Eating (QC): 5 Oral Hygiene (QC): 4 Toileting Hygiene (QC): 3 Shower/Bathe Self (QC): 2 Upper Body Dressing (QC): 3 Lower Body Dressing (QC): 2 On/Off Footwear (QC): 2 1=Demonstrate adherence to instructed precautions during ADL tasks. 2=Patient will verbalize/demonstrate understanding of assistive devices/modifications for ADL. 3=Patient will improve strength/tolerance for activity to enable patient to perform ADL's. OT Education/Plan Problem List/Assessment Assessment: Decreased Activ Tolerance, Decreased UE Strength, Dependent Transfers, Impaired Bed Mobility, Impaired Funct Balance, Impaired I ADL's, Impaired Self-Care Skills Discharge Recommendations Plan/Recommendations: Continue POC Treatment Plan/Plan of Care Patient would benefit from OT for education, treatment and training to promote independence in ADL's, mobility, safety and/or upper extremity function for ADL's. Plan of Care: ADL Retraining, Caregiver Training, Functional Mobility, Group Exercise/Act as Ind, UE Funct Exercise/Act, W/C Management Training Treatment Duration: Aug 07, 2022 Frequency: 3 times per week (3-5x/week) Estimated Hrs Per Day: .25 hour per day Rehab Potential: Poor Time/GCodes Start Time: 10:40 Stop Time: 10:51 Total Time Billed (hr/min): 11 Billed Treatment Time 1, EX (11min) Ruthie Heath Jul 20, 2022 10:53
--- NOTE | 2022-07-20 12:05 | Progress Note - Hospitalist ---
GURJIT BONILLA 07/20/22 1205: Subjective HPI/CC On Admission Date Seen by Provider: Jul 20, 2022 Time Seen by Provider: 11:59 Subjective/Events-last exam Patient doing well today. Hb 6.8 and patient was transfused today. Finishing up with Augmentin. No new complaints. Patient to be discharged to [place]. Objective Exam Vital Signs Vital Signs Date Time Temp Pulse Resp B/P (MAP) Pulse Ox O2 Delivery O2 Flow Rate FiO2 07/20/22 10:15 36.4 80 18 136/74 96 Room Air 07/19/22 19:37 3.00 Capillary Refill : Less Than 3 Seconds General Appearance: No Apparent Distress, WD/WN HEENT: Moist Mucous Membranes Neck: Non Tender, Supple Respiratory: Chest Non Tender, No Accessory Muscle Use, No Respiratory Distress Cardiovascular: No Edema, No JVD Gastrointestinal: Non Tender, Soft Rectal: Deferred Extremity: Other (Right BKA healing well ) Neurologic/Psychiatric: Alert, Normal Mood/Affect Skin: Normal Color, Warm/Dry Lymphatic: No Adenopathy Results/Procedures Lab Laboratory Tests 07/20/22 05:30 Patient resulted labs reviewed. Assessment/Plan Assessment and Plan Assess & Plan/Chief Complaint Assessment: s/p right BKA POD # 6 Post op anemia requiring 4th unit of blood this admit CKD DM HTN PVD s/p 2nd intervention of right leg Confusion/delirium Plan: Monitor BP Pain control Will plan for discharge to [place] KALLIE VARGAS DO 07/21/22 0528: Subjective Subjective/Events-last exam Transfusing once more unit No pain reported NH will talk to before accepting Supervisory-Addendum Brief Verification & Attestation Participated in pt care: history, MDM, physical Personally performed: exam, history, MDM, supervision of care Care discussed with: Medical Student Procedures: n/a Results interpretation: Verified all documentation Verification and Attestation of Medical Student E/M Service A medical student performed and documented this service in my presence. I reviewed and verified all information documented by the medical student and made modifications to such information, when appropriate. I personally performed the physical exam and medical decision making. Kallie Vargas Jul 21, 2022,05:26 GURJIT BONILLA Jul 20, 2022 12:05 KALLIE VARGAS DO Jul 21, 2022 05:28
[2022-07-20] MEDS: HYDROcodone/APAP 5 MG/325 MG (LORTAB) TAB PO PRN (23:39)
[2022-07-21 00:04] VITALS: BP 142/79
[2022-07-21 03:51] VITALS: BP 134/80
[2022-07-21 05:54] LABS: BASOPHILS # (AUTO) 0.1 10^3/uL (0.0-0.1); BASOPHILS % (AUTO) 1 % (0-10); EOSINOPHILS # (AUTO) 0.2 10^3/uL (0.0-0.3); EOSINOPHILS % (AUTO) 2 % (0-10); HEMATOCRIT 25 % (40-54); HEMOGLOBIN 8.1 g/dL (13.3-17.7); LYMPHOCYTES # (AUTO) 3.3 10^3/uL (1.0-4.0); LYMPHOCYTES % (AUTO) 22 % (12-44); MEAN CORPUSCULAR HEMOGLOBIN 28 pg (25-34); MEAN CORPUSCULAR HGB CONC 33 g/dL (32-36); MEAN CORPUSCULAR VOLUME 86 fL (80-99); MEAN PLATELET VOLUME 9.5 fL (9.0-12.2); MONOCYTES # (AUTO) 1.2 10^3/uL (0.0-1.0); MONOCYTES % (AUTO) 8 % (0-12); NEUTROPHILS # (AUTO) 9.9 10^3/uL (1.8-7.8); NEUTROPHILS % (AUTO) 67 % (42-75); PLATELET COUNT 750 10^3/uL (130-400); WHITE BLOOD COUNT 14.8 10^3/uL (4.3-11.0)
[2022-07-21 06:05] LABS: ALBUMIN 2.7 GM/DL (3.2-4.5); POTASSIUM 4.7 MMOL/L (3.6-5.0)
[2022-07-21 06:07] LABS: CALCIUM 9.4 MG/DL (8.5-10.1)
[2022-07-21 06:08] LABS: TOTAL PROTEIN 8.4 GM/DL (6.4-8.2)
[2022-07-21] MEDS: CATHETER FLUSH 10 ML SYR IVP SCH ×3 (06:09→20:22)
[2022-07-21] MEDS: inSUlin ASPART (NovoLOG) 1 UNIT/0.01 ML (CHARGE PER UNIT) SC SCH ×4 (06:09→20:20)
[2022-07-21] MEDS: LEVOTHYROXINE 125 MCG (LEVOTHROID) TABLET PO SCH (06:09)
[2022-07-21 06:10] LABS: BILIRUBIN,TOTAL 0.4 MG/DL (0.1-1.0)
[2022-07-21 06:11] LABS: CREATININE SERUM 1.49 MG/DL (0.60-1.30)
--- NOTE | 2022-07-21 06:11 | Progress Note - Surgery ---
KEVIN MCCARTY 07/21/22 0611: Subjective Date Seen by a Provider: Jul 21, 2022 Time Seen by a Provider: 06:08 Subjective/Events-last exam Patient is awake and alert in his bed this morning. No family at bedside. Patient reports that his pain is well-controlled and has no new symptoms. Review of Systems General: No Chills, No Night Sweats HEENT: No Head Aches, No Visual Changes Pulmonary: No Dyspnea, No Cough Cardiovascular: No: Chest Pain, Palpitations Gastrointestinal: No: Nausea, Vomiting Genitourinary: No Dysuria, No Frequency Musculoskeletal: No: neck pain, shoulder pain Neurological: No: Weakness, Numbness Objective Exam Vital Signs Date Time Temp Pulse Resp B/P (MAP) Pulse Ox O2 Delivery O2 Flow Rate FiO2 07/21/22 03:51 37.0 90 18 134/80 (98) 96 Room Air 07/21/22 00:04 36.9 82 18 142/79 (100) Room Air 07/20/22 20:35 Room Air 07/20/22 19:28 36.7 79 20 182/80 (114) 95 Room Air 07/20/22 16:19 36.8 81 18 141/67 (91) 95 Room Air 07/20/22 12:53 36.5 79 19 174/74 (107) 97 Room Air 07/20/22 10:15 36.4 80 18 136/74 96 Room Air 07/20/22 08:25 36.8 79 18 148/68 95 Room Air 07/20/22 08:10 36.8 80 17 139/63 94 Room Air 07/20/22 08:00 Room Air 07/20/22 08:00 36.8 80 17 139/63 (88) 94 Room Air I & O 07/21/22 07:00 Intake Total 4415 ml Output Total 1650 ml Balance 2765 ml Capillary Refill : Less Than 3 Seconds General Appearance: No Apparent Distress, Chronically ill HEENT: PERRL/EOMI, Normal ENT Inspection Neck: Non Tender, Supple Respiratory: Chest Non Tender, No Accessory Muscle Use, No Respiratory Distress Cardiovascular: Regular Rate, Rhythm, No JVD Peripheral Pulses: 2+ Radial Pulses (R), 2+ Radial Pulses (L) Gastrointestinal: non tender, soft Extremity: Normal Range of Motion, Other (right bka stump, bandage stable, no evidence of bleeding) Neurologic/Psychiatric: Alert, Disoriented Skin: Normal Color, Warm/Dry Lymphatic: No Adenopathy Results Lab Laboratory Tests 07/20/22 12:11: Glucometer 184H 07/20/22 16:35: Glucometer 169H 07/20/22 20:18: Glucometer 252H 07/21/22 05:12: White Blood Count 14.8H, Red Blood Count 2.91L, Hemoglobin 8.1L, Hematocrit 25L, Mean Corpuscular Volume 86, Mean Corpuscular Hemoglobin 28, Mean Corpuscular Hemoglobin Concent 33, Red Cell Distribution Width 16.1H, Platelet Count 750H, Mean Platelet Volume 9.5, Immature Granulocyte % (Auto) 1, Neutrophils (%) (Auto) 67, Lymphocytes (%) (Auto) 22, Monocytes (%) (Auto) 8, Eosinophils (%) (Auto) 2, Basophils (%) (Auto) 1, Neutrophils # (Auto) 9.9H, Lymphocytes # (Auto) 3.3, Monocytes # (Auto) 1.2H, Eosinophils # (Auto) 0.2, Basophils # (Auto) 0.1, Immature Granulocyte # (Auto) 0.1, Sodium Level 135, Potassium Level 4.7, Chloride Level 102, Calcium Level 9.4, Corrected Calcium 10.4H, Albumin 2.7L 07/21/22 05:35: Glucometer 181H Microbiology 07/12/22 Gram Stain - Final, Complete 07/12/22 Wound Culture - Final, Complete Enterococcus faecalis Staphylococcus aureus Assessment/Plan Assessment/Plan Assessment/Plan Anemia S/P right BKA Follow labs/hgb and transfuse as needed Continue Augmentin Hold antiplatelets/anticoagulation Continue pain control KATTY PATRICK DO 07/21/222047: Subjective Subjective/Events-last exam Pain controlled. Her blood cell count about the same as yesterday. Patient hemoglobin stable after transfusion yesterday. Does not seem to be having any bleeding. Has no other complaints denies nausea vomiting fever sweats chills shortness of breath or chest pain at this time. Anticoagulation antiplatelets on hold. Objective Exam General Appearance: No Apparent Distress, Chronically ill HEENT: PERRL/EOMI, Normal ENT Inspection Neck: Non Tender, Supple Respiratory: Chest Non Tender, No Accessory Muscle Use, No Respiratory Distress Cardiovascular: Regular Rate, Rhythm Gastrointestinal: non tender, soft Extremity: Other (right bka stump, bandage stable, no evidence of bleeding, no erythema sutures and alyssia intact) Neurologic/Psychiatric: Alert, Disoriented Skin: Normal Color, Warm/Dry Lymphatic: No Adenopathy Assessment/Plan Assessment/Plan Assessment/Plan Anemia S/P right BKA Follow labs/hgb and transfuse as needed Continue Augmentin Hold antiplatelets/anticoagulation Continue pain control Supervisory-Addendum Brief Verification & Attestation Participated in pt care: history, MDM, physical Personally performed: exam, history, MDM, supervision of care Care discussed with: Medical Student Procedures: n/a Results interpretation: Verified all documentation Verification and Attestation of Medical Student E/M Service A medical student performed and documented this service in my presence. I reviewed and verified all information documented by the medical student and made modifications to such information, when appropriate. I personally performed the physical exam and medical decision making. Katty Patrick, Jul 21, 2022,20:48 KEVIN MCCARTY Jul 21, 2022 06:11 KATTY PATRICK DO Jul 21, 2022 20:48
[2022-07-21 08:17] VITALS: BP 138/63
[2022-07-21] MEDS: AUGMENTIN 875 MG TAB (AMOXICILLIN/CLAVULANATE) PO SCH ×2 (08:41→17:40)
[2022-07-21] MEDS: MIRABEGRON 25 MG TAB (MYRBETRIQ) PO SCH (08:42)
[2022-07-21] MEDS: amLODIPine 10 MG (NORVASC) TAB PO SCH (08:42)
--- NOTE | 2022-07-21 08:59 | Physical Therapy Daily Note ---
PT Daily Note-Current Subjective Unable to understand patient's speech. He was compliant with therapy. Transfers SCALE: Activities may be completed with or without assistive devices. 3-Sqwguttwcr-hmgtiig completes the activity by him/herself with no assistance from a helper. 5-Set-up or Clean-up Assistance-helper sets up or cleans up; patient completes activity. [place] assists only prior to or following the activity. 4-Supervision or Touching Assistance-helper provides verbal cues and/or touching/steadying and/or contact guard assistance as patient completes activity. Assistance may be provided throughout the activity or intermittently. 3-Partial/Moderate Assistance-helper does LESS THAN HALF the effort. [place] lifts, holds or supports trunk or limbs, but provides less than half the effort. 2-Substantial/Maximal Assistance-helper does MORE THAN HALF the effort. [place] lifts or holds trunk or limbs and provides more than half the effort. 4-Crykwdkgn-hjexdn does ALL the effort. Patient does none of the effort to complete the activity. Or, the assistance of 2 or more helpers is required for the patient to complete the activity. If activity was not attempted, code reason: 7-Patient Refused. 9-Not Applicable-not attempted and the patient did not perform the activity before the current illness, exacerbation or injury. 10-Not Attempted due to Environmental Limitations-(lack of equipment, weather restraints, etc.). 88-Not Attempted due to Medical Conditions or Safety Concerns. Roll Left & Right (QC): 3 Sit to Lying (QC): 2 Lying to Sitting/Side of Bed(Q: 2 Sit to Stand (QC): 2 Chair/Pcr-qi-Dhgpe Xfer(QC): 2 Pt max assist for stand pivot to chair. Chair was placed immediately next to the bed for safety. Pt was able to generate some lift with the (L) LE but was not able to self pivot. Weight Bearing Right Lower Extremity: Right Non Weight Bearing Left Lower Extremity: Left Full Weight Bearing Exercises Supine Ex: Ankle pumps, Knee to chest, Short Arc Quads Supine Reps: 10 Performed active assist LE ROM (B). Passive end range stretching for extension on the right LE. Assessment Pt is maximal to dependent assist for mobility. Unsure of patient's ability to understand commands. He is developing flexion contracture in the right knee. It is possible that some of the contracture was pre-existing. PT Patient Safety Manager Goals [facility] Goals PT Patient Safety Manager Goals Time Frame: Jul 28, 2022 Roll Left & Right (QC): 4 Sit to Lying (QC): 4 Lying-Sitting on Side/Bed(QC): 4 Sit to Stand (QC): 4 Chair/Dcz-if-Xsnew Xfer(QC): 3 Toilet Transfer (QC): 3 Does the Patient Walk: No and Walking Goal IS indicated Walk 10 feet (QC): 2 Does the Pt use WC or Scooter?: Yes Wheel 50 feet with 2 turns (QC: 4 Type: Manual Wheel 150 feet: 4 Type: Manual PT Plan Treatment/Plan Treatment Plan: Continue Plan of Care Treatment Plan: Bed Mobility, Education, Functional Activity [place], Functional Strength, Gait, Safety, Therapeutic Exercise, Transfers Treatment Duration: Aug 11, 2022 Frequency: 6 times per week Estimated Hrs Per Day: .25 hour per day Patient and/or Family Agrees t: Yes Time/GCodes Time In: 815 Time Out: 830 Total Billed Treatment Time: 15 Total Billed Treatment visit, exercise 10 min, FA 5 min MARTHA YEUNG PT Jul 21, 2022 08:59
--- NOTE | 2022-07-21 12:00 | Occupational Ther Daily Note ---
OT Current Status-Daily Note Subjective Pt was lying in bed watching tv, with present, upon arrival. He agreed to therapy and sitting on the side of the bed. Appearance Pt left lying in bed with present. All needs within reach. Mental Status/Objective Patient Orientation: Person, Confused Attachments: Gaffney Catheter, IV ADL-Treatment Therapy Code Descriptions/Definitions Functional [place] Measure: 0=Not Assessed/NA 4=Minimal Assistance 1=Total Assistance 5=Supervision or Setup 2=Maximal Assistance 6=Modified [place] 3=Moderate Assistance 7=Complete IndependenceSCALE: Activities may be completed with or without assistive devices. 6-Aoydxloumu-bpwrxnk completes the activity by him/herself with no assistance from a helper. 5-Set-up or Clean-up Assistance-helper sets up or cleans up; patient completes activity. [place] assists only prior to or following the activity. 4-Supervision or Touching Assistance-helper provides verbal cues and/or touching/steadying and/or contact guard assistance as patient completes activity. Assistance may be provided throughout the activity or intermittently. 3-Partial/Moderate Assistance-helper does LESS THAN HALF the effort. [place] lifts, holds or supports trunk or limbs, but provides less than half the effort. 2-Substantial/Maximal Assistance-helper does MORE THAN HALF the effort. [place] lifts or holds trunk or limbs and provides more than half the effort. 6-Kishwsdxx-ghrxgi does ALL the effort. Patient does none of the effort to complete the activity. Or, the assistance of 2 or more helpers is required for the patient to complete the activity. If activity was not attempted, code reason: 7-Patient Refused. 9-Not Applicable-not attempted and the patient did not perform the activity before the current illness, exacerbation or injury. 10-Not Attempted due to Environmental Limitations-(lack of equipment, weather restraints, etc.). 88-Not Attempted due to Medical Conditions or Safety Concerns. Toileting Hygiene (QC): 1 Pt required mod assist x2 for rolling and sitting on the side of the bed. He showed fair- balance at the beginning of EOB sitting, needing mod assist to stay upright, and improved to fair+ seated balance. He sat at EOB for ~3min. Performed 2 sit<>stand transfers with total assist. Pt was incontinent of his bowels while standing. Once laying back in bed, pt was cued and required min-mod assist to roll side to side for dependent toileting hygiene. He required max assist x2 for moving up to HOB. Education OT Patient Education: Correct positioning, Modified ADL techniques, Progress toward Goal/Update tx plan, Purpose of tx/functional activities, Rehab process, Safety issues, Transfer techniques Teaching Recipient: Patient Teaching Methods: Demonstration, Discussion Response to Teaching: Reinforcement Needed OT Skilled Nursing Goals Skilled Nursing Goals Time Frame: Aug 07, 2022 Eating (QC): 5 Oral Hygiene (QC): 4 Toileting Hygiene (QC): 3 Shower/Bathe Self (QC): 2 Upper Body Dressing (QC): 3 Lower Body Dressing (QC): 2 On/Off Footwear (QC): 2 1=Demonstrate adherence to instructed precautions during ADL tasks. 2=Patient will verbalize/demonstrate understanding of assistive devices/modifications for ADL. 3=Patient will improve strength/tolerance for activity to enable patient to perform ADL's. OT Education/Plan Problem List/Assessment Assessment: Decreased Activ Tolerance, Decreased Safety Aware, Decreased UE Strength, Dependent Transfers, Impaired Bed Mobility, Impaired Cognition, Im paired Coordination, Impaired Funct Balance, Impaired I ADL's, Impaired Self- Care Skills, Restricted Funct UE ROM, Visual-Perceptual Deficit Discharge Recommendations Plan/Recommendations: Continue POC Therapy Discharge Recommendati: Assisted Living Treatment Plan/Plan of Care Treatment,Training & Education: Yes Patient would benefit from OT for education, treatment and training to promote independence in ADL's, mobility, safety and/or upper extremity function for ADL's. Plan of Care: ADL Retraining, Caregiver Training, Functional Mobility, Group Exercise/Act as Ind, UE Funct Exercise/Act, W/C Management Training Treatment Duration: Aug 07, 2022 Frequency: 3 times per week (3-5x/week) Estimated Hrs Per Day: .25 hour per day Rehab Potential: Poor Time/GCodes Start Time: 11:10 Stop Time: 11:26 Total Time Billed (hr/min): 16 Billed Treatment Time 1 visit Sona Leyva OT Jul 21, 2022 12:00
[2022-07-21 12:42] VITALS: BP 144/67
--- NOTE | 2022-07-21 13:18 | Progress Note - Hospitalist ---
GURJIT BONILLA 07/21/22 1318: Subjective HPI/CC On Admission Date Seen by Provider: Jul 21, 2022 Time Seen by Provider: 13:13 Subjective/Events-last exam Patient doing well today. Working on PT this morning. reports patient stood up on his own twice. No new complaints. Labs stable. Objective Exam Vital Signs Vital Signs Date Time Temp Pulse Resp B/P (MAP) Pulse Ox O2 Delivery O2 Flow Rate FiO2 07/21/22 12:42 36.9 76 19 144/67 (92) 96 Room Air 07/19/22 19:37 3.00 Capillary Refill : Less Than 3 Seconds General Appearance: No Apparent Distress HEENT: Moist Mucous Membranes Neck: Non Tender, Supple Respiratory: Chest Non Tender, No Accessory Muscle Use, No Respiratory Distress Cardiovascular: No Edema, No JVD Rectal: Deferred Extremity: Other (Right BKA) Neurologic/Psychiatric: Alert, Normal Mood/Affect Skin: Normal Color, Warm/Dry Lymphatic: No Adenopathy Results/Procedures Lab Laboratory Tests 07/21/22 05:12 Patient resulted labs reviewed. Assessment/Plan Assessment and Plan Assess & Plan/Chief Complaint Assessment: s/p right BKA POD # 7 Post op anemia requiring 4th unit of blood this admit CKD DM HTN PVD s/p 2nd intervention of right leg Confusion/delirium Plan: Monitor BP Pain control Will plan for discharge to KALLIE Monte DO 07/22/22 0542: Subjective Subjective/Events-last exam Pt still remains in the hospital Awaiting skilled care on Sunday Hemoglobin good at 8.1 Supervisory-Addendum Brief Verification & Attestation Participated in pt care: history, MDM, physical Personally performed: exam, history, MDM, supervision of care Care discussed with: Medical Student Procedures: n/a Results interpretation: Verified all documentation Verification and Attestation of Medical Student E/M Service A medical student performed and documented this service in my presence. I review ed and verified all information documented by the medical student and made modifications to such information, when appropriate. I personally performed the physical exam and medical decision making. Kallie Jiang Jul 22, 2022,05:41 GURJIT BONILLA Jul 21, 2022 13:18 KALLIE JIANG DO Jul 22, 2022 05:42
--- NOTE | 2022-07-21 14:05 | Cardiology Progress Note ---
Subjective Date Seen by Provider: Jul 21, 2022 Time Seen by Provider: 14:05 Subjective/Events-last exam Patient was seen at bedside, laying down comfortably, no new complaint Objective-Cardiology Exam Last Set of Vital Signs Vital Signs 07/19/22 07/21/22 19:37 12:42 Temp 36.9 Pulse 76 Resp 19 B/P (MAP) 144/67 (92) Pulse Ox 96 O2 Delivery Room Air O2 Flow Rate 3.00 I&O Intake and Output 07/21/22 00:00 Intake Total 2515 ml Output Total 2200 ml Balance 315 ml Intake Oral 1515 ml IV Total 1000 ml Output Urine Total 2200 ml # Bowel Movements 3 General: Alert, Cooperative, No Acute Distress HEENT: Atraumatic, PERRLA Neck: Supple, No JVD, No Thyromegaly Lungs: Clear to Auscultation, Normal Air Movement Heart: Regular Rate, Normal S1, Normal S2, No Murmurs Abdomen: Normal Bowel Sounds, Soft, No Tenderness, No Masses Extremities: Other (Right BKA) Skin: No Rashes, No Breakdown, No Significant Lesion Neuro: Normal Gait, Normal Speech, Strength at 5/5 X4 Ext, Normal Tone, Sensation Intact Psych/Mental Status: Other (patient was unable to answer most question. ) Results Lab Laboratory Tests 07/21/22 05:12 A/P-Cardiology Admission Diagnosis PVD HTN HLP DM Assessment/Plan Peripheral vascular disease, Ischemic gangrene of the right toe. Nonhealing ulcer. Peripheral angiogram was done on July 03, 2022 with balloon angioplasty to the right SFA, right tibioperoneal trunk and right posterior tibial artery. The anterior tibial artery is occluded and not reconstructed. No intervention was done on it. Status post amputation of the right second toe done by Dr. Dahl on July 04, 2022 Peripheral angiogram was done again on July 13, 2022, has occlusion of the distal posterior tibial artery, I was able to do balloon angioplasty to the posterior tibial artery down to the ankle, the peroneal artery is open. There is a total occlusion at the ostium of the anterior tibial artery S/P right BKA, recovering slowly. Managed by medical team Anemia, Still dropping H&H I will stop Plavix and continue aspirin 81 mg daily Monitor H&H Status post recent CVA, was transferred from [facility] c[facility] Gomez in [place]. Doing better at this time. Managed by medical team. Clinically stable Generalized malaise and weakness Hyperkalemia, was maintained on losartan as outpatient, improved after discontinuing Continue to monitor. Unable to tolerate CAIO-I or ARB d/t hyperkalemia. Hyperlipidemia, maintained on Lipitor 80 mg daily Hypertension, mildly elevated, monitor blood pressure Diabetes mellitus, followed and managed by primary care physician Twelve-lead EKG showed sinus rhythm with low voltage, nonspecific T wave abnormality History of tobaccoism in the remote past. BRITTANY CARRERO MD Jul 21, 2022 14:05
--- NOTE | 2022-07-21 15:22 | Physician Query Clarification ---
Physician Query-General Query to Physician: The medical record reflects the following clinical evidence: Clinical Indicators: H/H on admission 8.4/27 decreased to 6.5/21 after blood transfusion, Improves some and then drops below 7 again requires addition transfusions to keep above 7 - contributing to a prolonged stay Risk Factor(s): Ischemia to right foot requiring amputation, Toe amputation prior to this for infection Treatment: 4 units of PRBC's, H/H monitoring, 1. Acute blood loss anemia 2. Other explanation of clinical findings 3. Unable to determine (no explanation for clinical findings) Please clarify and document your clinical opinion in the progress notes and discharge summary including the definitive and/or presumptive diagnosis, (suspected or probable), related to the above clinical findings. Please include clinical findings supporting your diagnosis. Madhavi Omalley RN, MSN [phone] [email or web address] PHYSICIAN RESPONSE: Based on the clinical findings in the record, please respond to the query above on this document as an addendum. Physician Response: Physician Response 1 If you have questions please contact: Event Specialist Product Demonstrator: Ext: Thank you for your time and cooperation. Clinical Refrigeration Mechanic/Event Specialist Product Demonstrator This is a permanent part of the medical record MADHAVI OMALLEY Jul 21, 2022 15:22 JOSE VARGAS DO Jul 21, 2022 20:22
[2022-07-21 16:14] VITALS: BP 125/60
[2022-07-21 19:55] VITALS: BP 146/72
[2022-07-22] VITALS (7 sets, daily range): BP systolic 126–178; BP diastolic 59–74
[2022-07-22] MEDS: inSUlin ASPART (NovoLOG) 1 UNIT/0.01 ML (CHARGE PER UNIT) SC SCH ×4 (05:55→20:59)
[2022-07-22] MEDS: LEVOTHYROXINE 125 MCG (LEVOTHROID) TABLET PO SCH (05:55)
[2022-07-22] MEDS: CATHETER FLUSH 10 ML SYR IVP SCH ×3 (05:56→20:59)
[2022-07-22 06:27] LABS: BASOPHILS # (AUTO) 0.1 10^3/uL (0.0-0.1); BASOPHILS % (AUTO) 1 % (0-10); EOSINOPHILS # (AUTO) 0.3 10^3/uL (0.0-0.3); EOSINOPHILS % (AUTO) 2 % (0-10); HEMATOCRIT 26 % (40-54); HEMOGLOBIN 8.1 g/dL (13.3-17.7); LYMPHOCYTES # (AUTO) 3.5 10^3/uL (1.0-4.0); LYMPHOCYTES % (AUTO) 24 % (12-44); MEAN CORPUSCULAR HEMOGLOBIN 28 pg (25-34); MEAN CORPUSCULAR HGB CONC 32 g/dL (32-36); MEAN CORPUSCULAR VOLUME 87 fL (80-99); MEAN PLATELET VOLUME 9.3 fL (9.0-12.2); MONOCYTES # (AUTO) 1.2 10^3/uL (0.0-1.0); MONOCYTES % (AUTO) 8 % (0-12); NEUTROPHILS # (AUTO) 9.5 10^3/uL (1.8-7.8); NEUTROPHILS % (AUTO) 65 % (42-75); PLATELET COUNT 812 10^3/uL (130-400); WHITE BLOOD COUNT 14.7 10^3/uL (4.3-11.0)
[2022-07-22 06:51] LABS: ALBUMIN 2.8 GM/DL (3.2-4.5); POTASSIUM 4.7 MMOL/L (3.6-5.0)
[2022-07-22 06:52] LABS: CALCIUM 9.4 MG/DL (8.5-10.1)
[2022-07-22 06:54] LABS: TOTAL PROTEIN 8.6 GM/DL (6.4-8.2)
[2022-07-22 06:55] LABS: BILIRUBIN,TOTAL 0.3 MG/DL (0.1-1.0)
[2022-07-22 06:57] LABS: CREATININE SERUM 1.48 MG/DL (0.60-1.30)
--- NOTE | 2022-07-22 07:17 | Progress Note - Hospitalist ---
Subjective HPI/CC On Admission Date Seen by Provider: Jul 22, 2022 Time Seen by Provider: 10:00 Subjective/Events-last exam Doing well at bedside Sleeping Labs ok Review of Systems General: Fatigue, Malaise Objective Exam Vital Signs Vital Signs Date Time Temp Pulse Resp B/P (MAP) Pulse Ox O2 Delivery O2 Flow Rate FiO2 07/22/22 12:19 36.5 80 20 137/63 (87) 96 Room Air 07/19/22 19:37 3.00 Capillary Refill : Less Than 3 Seconds General Appearance: No Apparent Distress, WD/WN, Chronically ill Respiratory: Lungs Clear, Normal Breath Sounds Cardiovascular: Regular Rate, Rhythm Neurologic/Psychiatric: Alert, Oriented x3, No Motor/Sensory Deficits, Normal Mood/Affect Results/Procedures Lab Laboratory Tests 07/22/22 06:11 Patient resulted labs reviewed. Assessment/Plan Assessment and Plan Assess & Plan/Chief Complaint Assessment: s/p right BKA POD # 8 Post op anemia requiring 4th unit of blood this admit CKD DM HTN PVD s/p 2nd intervention of right leg Confusion/delirium Plan: Monitor BP Pain control Will plan for discharge to [place] Sunday JOSE VARGAS DO Jul 22, 2022 07:17
[2022-07-22] MEDS: MIRABEGRON 25 MG TAB (MYRBETRIQ) PO SCH (08:52)
[2022-07-22] MEDS: amLODIPine 10 MG (NORVASC) TAB PO SCH (08:52)
[2022-07-22] MEDS: AUGMENTIN 875 MG TAB (AMOXICILLIN/CLAVULANATE) PO SCH ×2 (08:52→17:01)
--- NOTE | 2022-07-22 09:39 | Cardiology Progress Note ---
Subjective Date Seen by Provider: Jul 22, 2022 Time Seen by Provider: 09:37 Subjective/Events-last exam Patient was seen at bedside, laying down comfortably, feeling better More awake today. Review of Systems General: No Chills, No Night Sweats; Fatigue; No Malaise, No Appetite, No Other HEENT: No Head Aches, No Visual Changes, No Eye Pain, No Ear Pain, No Dysphasia , No Sinus Congestion, No Post Nasal Drip, No Sore Throat, No Other Pulmonary: No Dyspnea, No Cough, No Pleuritic Chest Pain, No Other Cardiovascular: No: Chest Pain, Palpitations, Orthopnea, Paroxysmal Noc. Dyspnea, Edema, Lt Headedness, Other Objective-Cardiology Exam Last Set of Vital Signs Vital Signs 07/19/22 07/22/22 19:37 08:38 Temp 36.5 Pulse 80 Resp 18 B/P (MAP) 178/74 (108) Pulse Ox 97 O2 Delivery Room Air O2 Flow Rate 3.00 I&O Intake and Output 07/22/22 00:00 Intake Total 9081 ml Output Total 2330 ml Balance 6751 ml Intake Oral 2081 ml IV Total 7000 ml Output Urine Total 2330 ml # Bowel Movements 2 General: Alert, Cooperative, No Acute Distress HEENT: Atraumatic, PERRLA Neck: Supple, No JVD, No Thyromegaly Lungs: Clear to Auscultation, Normal Air Movement Heart: Regular Rate, Normal S1, Normal S2, No Murmurs Abdomen: Normal Bowel Sounds, Soft, No Tenderness, No Masses Extremities: Other (Right BKA) Skin: No Rashes, No Breakdown, No Significant Lesion Neuro: Normal Gait, Normal Speech, Strength at 5/5 X4 Ext, Normal Tone, Sensation Intact Psych/Mental Status: Other (patient was unable to answer most question. ) Results Lab Laboratory Tests 07/22/22 06:11 A/P-Cardiology Admission Diagnosis PVD HTN HLP DM Assessment/Plan Peripheral vascular disease, Ischemic gangrene of the right toe. Nonhealing ulcer. Peripheral angiogram was done on July 03, 2022 with balloon angioplasty to the right SFA, right tibioperoneal trunk and right posterior tibial artery. The anterior tibial artery is occluded and not reconstructed. No intervention was done on it. Status post amputation of the right second toe done by Dr. Dahl on July 04, 2022 Peripheral angiogram was done again on July 13, 2022, has occlusion of the distal posterior tibial artery, I was able to do balloon angioplasty to the posterior tibial artery down to the ankle, the peroneal artery is open. There is a total occlusion at the ostium of the anterior tibial artery S/P right BKA, recovering slowly. Managed by medical team Anemia, Still dropping H&H I will stop Plavix and continue aspirin 81 mg daily Monitor H&H Status post recent CVA, was transferred from [facility] to [facility] in [place]. Doing better at this time. Managed by medical team. Clinically stable Generalized malaise and weakness Hyperkalemia, was maintained on losartan as outpatient, improved after discontinuing Continue to monitor. Unable to tolerate CAIO-I or ARB d/t hyperkalemia. Hyperlipidemia, maintained on Lipitor 80 mg daily Hypertension, poorly controlled Intolerant to CAIO inhibitor and/or ARB due to hyperkalemia Maintained on amlodipine 10 mg daily I will add hydralazine and evaluate tolerance and response Diabetes mellitus, followed and managed by primary care physician Twelve-lead EKG showed sinus rhythm with low voltage, nonspecific T wave abnormality History of tobaccoism in the remote past. BRITTANY CARRERO MD Jul 22, 2022 09:39
--- NOTE | 2022-07-22 10:02 | Physical Therapy Daily Note ---
PT Daily Note-Current Subjective States that he is doing okay. Transfers SCALE: Activities may be completed with or without assistive devices. 5-Pnxlqgenru-jcbobyu completes the activity by him/herself with no assistance from a helper. 5-Set-up or Clean-up Assistance-helper sets up or cleans up; patient completes activity. [place] assists only prior to or following the activity. 4-Supervision or Touching Assistance-helper provides verbal cues and/or touching/steadying and/or contact guard assistance as patient completes activity. Assistance may be provided throughout the activity or intermittently. 3-Partial/Moderate Assistance-helper does LESS THAN HALF the effort. [place] lifts, holds or supports trunk or limbs, but provides less than half the effort. 2-Substantial/Maximal Assistance-helper does MORE THAN HALF the effort. [place] lifts or holds trunk or limbs and provides more than half the effort. 3-Acvpfeoou-lpqrpv does ALL the effort. Patient does none of the effort to complete the activity. Or, the assistance of 2 or more helpers is required for the patient to complete the activity. If activity was not attempted, code reason: 7-Patient Refused. 9-Not Applicable-not attempted and the patient did not perform the activity before the current illness, exacerbation or injury. 10-Not Attempted due to Environmental Limitations-(lack of equipment, weather restraints, etc.). 88-Not Attempted due to Medical Conditions or Safety Concerns. Roll Left & Right (QC): 3 Sit to Lying (QC): 3 Lying to Sitting/Side of Bed(Q: 3 Weight Bearing Right Lower Extremity: Right Non Weight Bearing Left Lower Extremity: Left Full Weight Bearing Exercises Supine Ex: Quad Set, Straight leg raise Supine Reps: 20 Seated Therapy Exercises: Long arc quads Seated Reps: 20 Assessment Current Status: Fair Progress Patient gave very poor effort and got upset with therapy for having him do exercises. Considerable flexion contracture. PT Fpc Goals Project Director Goals PT Project Director Goals Time Frame: Jul 28, 2022 Roll Left & Right (QC): 4 Sit to Lying (QC): 4 Lying-Sitting on Side/Bed(QC): 4 Sit to Stand (QC): 4 Chair/Ckk-la-Wbutj Xfer(QC): 3 Toilet Transfer (QC): 3 Does the Patient Walk: No and Walking Goal IS indicated Walk 10 feet (QC): 2 Does the Pt use WC or Scooter?: Yes Wheel 50 feet with 2 turns (QC: 4 Type: Manual Wheel 150 feet: 4 Type: Manual PT Plan Treatment/Plan Treatment Plan: Continue Plan of Care Treatment Plan: Bed Mobility, Education, Functional Activity [place], Functional Strength, Gait, Safety, Therapeutic Exercise, Transfers Treatment Duration: Aug 11, 2022 Frequency: 6 times per week Estimated Hrs Per Day: .25 hour per day Patient and/or Family Agrees t: Yes Time/GCodes Time In: 0950 Time Out: 1000 Total Billed Treatment Time: 10 Total Billed Treatment 1, EX x 10 LV MCNEILL PT Jul 22, 2022 10:02
[2022-07-22] MEDS: hydrALAZINE (APRESOLINE) 25 MG TAB PO SCH ×3 (10:10→21:00)
--- NOTE | 2022-07-22 11:52 | Progress Note ---
Subjective Date Seen by a Provider: Jul 22, 2022 Time Seen by a Provider: 11:00 Subjective/Events-last exam Patient seen with Dr. Humphries. Patient reports doing well. Denies any pain. Tolerating diet. Objective Exam Vital Signs Date Time Temp Pulse Resp B/P (MAP) Pulse Ox O2 Delivery O2 Flow Rate FiO2 07/22/22 08:38 36.5 80 18 178/74 (108) 97 Room Air 07/22/22 08:00 97 Room Air 07/22/22 03:31 36.4 76 16 128/70 (89) 97 Room Air 07/22/22 00:00 36.3 74 16 126/59 (81) 96 Room Air 07/21/22 20:23 Room Air 07/21/22 19:55 36.5 75 22 146/72 (96) 96 Room Air 07/21/22 16:14 36.9 73 20 125/60 (81) 99 Room Air 07/21/22 12:42 36.9 76 19 144/67 (92) 96 Room Air I & O 07/22/22 07:00 Intake Total 7781 ml Output Total 1680 ml Balance 6101 ml Capillary Refill : Less Than 3 Seconds General Appearance: No Apparent Distress, WD/WN Neck: Normal Inspection, Supple Respiratory: No Accessory Muscle Use, No Respiratory Distress Gastrointestinal: normal bowel sounds, non tender, soft Extremity: Normal Range of Motion, Other (Right BKA. Dressing C/D/I) Neurologic/Psychiatric: Alert, Oriented x3 Skin: Normal Color, Warm/Dry Results Lab Laboratory Tests 07/21/22 16:19: Glucometer 243H 07/21/22 20:07: Glucometer 235H 07/22/22 05:14: Glucometer 180H 07/22/22 06:11: White Blood Count 14.7H, Red Blood Count 2.94L, Hemoglobin 8.1L, Hematocrit 26L, Mean Corpuscular Volume 87, Mean Corpuscular Hemoglobin 28, Mean Corpuscular Hemoglobin Concent 32, Red Cell Distribution Width 15.9H, Platelet Count 812H, Mean Platelet Volume 9.3, Immature Granulocyte % (Auto) 1, Neutrophils (%) (Auto) 65, Lymphocytes (%) (Auto) 24, Monocytes (%) (Auto) 8, Eosinophils (%) (Auto) 2, Basophils (%) (Auto) 1, Neutrophils # (Auto) 9.5H, Lymphocytes # (Auto) 3.5, Monocytes # (Auto) 1.2H, Eosinophils # (Auto) 0.3, Basophils # (Auto) 0.1, Immature Granulocyte # (Auto) 0.1, Sodium Level 133L, Potassium Level 4.7, Chloride Level 101, Carbon Dioxide Level 21, Anion Gap 11, Blood Urea Nitrogen 28H, Creatinine 1.48H, Estimat Glomerular Filtration Rate 51, BUN/Creatinine Ratio 19, Glucose Level 191H, Calcium Level 9.4, Corrected Calcium 10.4H, Total Bilirubin 0.3, Aspartate Amino Transf (AST/SGOT) 48H, Alanine Aminotransferase (ALT/SGPT) 28, Alkaline Phosphatase 220H, Total Protein 8.6H, Albumin 2.8L 07/22/22 11:23: Glucometer 209H Microbiology 07/12/22 Gram Stain - Final, Complete 07/12/22 Wound Culture - Final, Complete Enterococcus faecalis Staphylococcus aureus Assessment/Plan Assessment/Plan Assess & Plan/Chief Complaint A 71 year old male with Anemia who is S/P right BKA VSS Hgb 8.1 - Follow labs/hgb and transfuse as needed Continue Augmentin Hold antiplatelets/anticoagulation Continue pain control FERNANDA DERAS [employer] Jul 22, 2022 11:52
[2022-07-22] MEDS: LORazepam 0.5 MG (ATIVAN) TABLET PO PRN (23:59)
[2022-07-23 03:33] VITALS: BP 149/74
[2022-07-23] MEDS: LORazepam 0.5 MG (ATIVAN) TABLET PO PRN ×3 (03:52→23:57)
[2022-07-23 06:01] LABS: BASOPHILS # (AUTO) 0.1 10^3/uL (0.0-0.1); BASOPHILS % (AUTO) 1 % (0-10); EOSINOPHILS # (AUTO) 0.3 10^3/uL (0.0-0.3); EOSINOPHILS % (AUTO) 2 % (0-10); HEMATOCRIT 25 % (40-54); HEMOGLOBIN 8.1 g/dL (13.3-17.7); LYMPHOCYTES # (AUTO) 3.7 10^3/uL (1.0-4.0); LYMPHOCYTES % (AUTO) 26 % (12-44); MEAN CORPUSCULAR HEMOGLOBIN 28 pg (25-34); MEAN CORPUSCULAR HGB CONC 32 g/dL (32-36); MEAN CORPUSCULAR VOLUME 86 fL (80-99); MEAN PLATELET VOLUME 9.4 fL (9.0-12.2); MONOCYTES # (AUTO) 1.1 10^3/uL (0.0-1.0); MONOCYTES % (AUTO) 7 % (0-12); NEUTROPHILS # (AUTO) 9.1 10^3/uL (1.8-7.8); NEUTROPHILS % (AUTO) 64 % (42-75); PLATELET COUNT 863 10^3/uL (130-400); WHITE BLOOD COUNT 14.3 10^3/uL (4.3-11.0)
[2022-07-23] MEDS: LEVOTHYROXINE 125 MCG (LEVOTHROID) TABLET PO SCH (06:17)
[2022-07-23] MEDS: inSUlin ASPART (NovoLOG) 1 UNIT/0.01 ML (CHARGE PER UNIT) SC SCH ×4 (06:17→22:19)
[2022-07-23] MEDS: hydrALAZINE (APRESOLINE) 25 MG TAB PO SCH ×3 (06:17→22:19)
[2022-07-23] MEDS: CATHETER FLUSH 10 ML SYR IVP SCH ×3 (06:18→22:19)
[2022-07-23 06:26] LABS: ALBUMIN 2.6 GM/DL (3.2-4.5); BILIRUBIN,TOTAL 0.3 MG/DL (0.1-1.0); CALCIUM 9.2 MG/DL (8.5-10.1); CREATININE SERUM 1.57 MG/DL (0.60-1.30); POTASSIUM 4.9 MMOL/L (3.6-5.0); TOTAL PROTEIN 8.5 GM/DL (6.4-8.2)
--- NOTE | 2022-07-23 07:50 | Progress Note - Hospitalist ---
Subjective HPI/CC On Admission Date Seen by Provider: Jul 23, 2022 Time Seen by Provider: 11:00 Subjective/Events-last exam Doing well Awaiting NHP NO pain Hgb 8.1 Review of Systems General: Fatigue, Malaise Objective Exam Vital Signs Vital Signs Date Time Temp Pulse Resp B/P (MAP) Pulse Ox O2 Delivery O2 Flow Rate FiO2 07/23/22 12:00 36.6 86 16 121/70 (87) 97 Room Air 07/23/22 08:27 0.00 Capillary Refill : Less Than 3 Seconds General Appearance: No Apparent Distress, WD/WN, Chronically ill Respiratory: Lungs Clear Cardiovascular: Regular Rate, Rhythm Neurologic/Psychiatric: Alert, Oriented x3 Results/Procedures Lab Laboratory Tests 07/23/22 05:41 Patient resulted labs reviewed. Assessment/Plan Assessment and Plan Assess & Plan/Chief Complaint Assessment: s/p right BKA POD # 9 Post op anemia requiring 4th unit of blood this admit CKD DM HTN PVD s/p 2nd intervention of right leg Confusion/delirium Plan: Monitor BP Pain control Will plan for discharge to [place] Sunday JOSE VARGAS DO Jul 23, 2022 07:50
[2022-07-23 08:00] VITALS: BP 116/74
[2022-07-23] MEDS: MIRABEGRON 25 MG TAB (MYRBETRIQ) PO SCH (09:34)
[2022-07-23] MEDS: amLODIPine 10 MG (NORVASC) TAB PO SCH (09:34)
[2022-07-23] MEDS: AUGMENTIN 875 MG TAB (AMOXICILLIN/CLAVULANATE) PO SCH ×2 (09:34→18:24)
--- NOTE | 2022-07-23 10:04 | Cardiology Progress Note ---
Subjective Date Seen by Provider: Jul 23, 2022 Time Seen by Provider: 10:04 Subjective/Events-last exam Patient is laying down in bed Feeling better, asking to go home Review of Systems General: No Chills, No Night Sweats, No Fatigue, No Malaise, No Appetite, No Other HEENT: No Head Aches, No Visual Changes, No Eye Pain, No Ear Pain, No Dysphasia, No Sinus Congestion, No Post Nasal Drip, No Sore Throat, No Other Pulmonary: No Dyspnea, No Cough, No Pleuritic Chest Pain, No Other Cardiovascular: No: Chest Pain, Palpitations, Orthopnea, Paroxysmal Noc. Dyspnea, Edema, Lt Headedness, Other Objective-Cardiology Exam Last Set of Vital Signs Vital Signs 07/23/22 07/23/22 08:00 08:27 Temp 36.5 Pulse 76 Resp 19 B/P (MAP) 116/74 (88) Pulse Ox 93 O2 Delivery Room Air O2 Flow Rate 0.00 I&O Intake and Output 07/23/22 00:00 Intake Total 7665 ml Output Total 2365 ml Balance 5300 ml Intake Oral 1665 ml IV Total 6000 ml Output Urine Total 2365 ml # Bowel Movements 1 General: Alert, Cooperative, No Acute Distress HEENT: Atraumatic, PERRLA Neck: Supple, No JVD, No Thyromegaly Lungs: Clear to Auscultation, Normal Air Movement Heart: Regular Rate, Normal S1, Normal S2, No Murmurs Abdomen: Normal Bowel Sounds, Soft, No Tenderness, No Masses Extremities: Other (Right BKA) Skin: No Rashes, No Breakdown, No Significant Lesion Neuro: Normal Gait, Normal Speech, Strength at 5/5 X4 Ext, Normal Tone, Sensation Intact Psych/Mental Status: Other (patient was unable to answer most question. ) Results Lab Laboratory Tests 07/23/22 05:41 A/P-Cardiology Admission Diagnosis PVD HTN HLP DM Assessment/Plan Peripheral vascular disease, Ischemic gangrene of the right toe. Nonhealing ulcer. Peripheral angiogram was done on July 03, 2022 with balloon angioplasty to the right SFA, right tibioperoneal trunk and right posterior tibial artery. The anterior tibial artery is occluded and not reconstructed. No intervention was done on it. Status post amputation of the right second toe done by Dr. Dahl on July 04, 2022 Peripheral angiogram was done again on July 13, 2022, has occlusion of the distal posterior tibial artery, I was able to do balloon angioplasty to the posterior tibial artery down to the ankle, the peroneal artery is open. There is a total occlusion at the ostium of the anterior tibial artery S/P right BKA, recovering slowly. Managed by medical team Anemia, Still dropping H&H I will stop Plavix and continue aspirin 81 mg daily Monitor H&H Status post recent CVA, was transferred from [facility] to [facility] in [place]. Doing better at this time. Managed by medical team. Clinically stable Generalized malaise and weakness Hyperkalemia, was maintained on losartan as outpatient, improved after discontinuing Continue to monitor. Unable to tolerate CAIO-I or ARB d/t hyperkalemia. Hyperlipidemia, maintained on Lipitor 80 mg daily Hypertension, poorly controlled Intolerant to CAIO inhibitor and/or ARB due to hyperkalemia Maintained on amlodipine 10 mg daily I will add hydralazine and evaluate tolerance and response Diabetes mellitus, followed and managed by primary care physician Twelve-lead EKG showed sinus rhythm with low voltage, nonspecific T wave abnormality History of tobaccoism in the remote past. BRITTANY CARRERO MD Jul 23, 2022 10:04
[2022-07-23 12:00] VITALS: BP 121/70
[2022-07-23 15:59] VITALS: BP 144/71
[2022-07-23] MEDS: HYDROcodone/APAP 5 MG/325 MG (LORTAB) TAB PO PRN (16:16)
[2022-07-23 19:50] VITALS: BP 129/74
[2022-07-23 23:29] VITALS: BP 166/77
[2022-07-24 04:11] VITALS: BP 138/75
[2022-07-24] MEDS: hydrALAZINE (APRESOLINE) 25 MG TAB PO SCH ×3 (05:54→21:42)
[2022-07-24] MEDS: LEVOTHYROXINE 125 MCG (LEVOTHROID) TABLET PO SCH (05:54)
[2022-07-24] MEDS: inSUlin ASPART (NovoLOG) 1 UNIT/0.01 ML (CHARGE PER UNIT) SC SCH ×4 (05:54→21:43)
[2022-07-24] MEDS: CATHETER FLUSH 10 ML SYR IVP SCH ×3 (05:55→21:43)
[2022-07-24 06:31] LABS: BASOPHILS # (AUTO) 0.1 10^3/uL (0.0-0.1); BASOPHILS % (AUTO) 1 % (0-10); EOSINOPHILS # (AUTO) 0.3 10^3/uL (0.0-0.3); EOSINOPHILS % (AUTO) 2 % (0-10); HEMATOCRIT 26 % (40-54); HEMOGLOBIN 8.6 g/dL (13.3-17.7); LYMPHOCYTES # (AUTO) 3.2 10^3/uL (1.0-4.0); LYMPHOCYTES % (AUTO) 22 % (12-44); MEAN CORPUSCULAR HEMOGLOBIN 28 pg (25-34); MEAN CORPUSCULAR HGB CONC 33 g/dL (32-36); MEAN CORPUSCULAR VOLUME 86 fL (80-99); MEAN PLATELET VOLUME 9.5 fL (9.0-12.2); MONOCYTES # (AUTO) 1.1 10^3/uL (0.0-1.0); MONOCYTES % (AUTO) 7 % (0-12); NEUTROPHILS % (AUTO) 68 % (42-75); PLATELET COUNT 934 10^3/uL (130-400); WHITE BLOOD COUNT 14.7 10^3/uL (4.3-11.0)
[2022-07-24 06:44] LABS: ALBUMIN 2.9 GM/DL (3.2-4.5)
[2022-07-24 06:45] LABS: POTASSIUM 4.8 MMOL/L (3.6-5.0)
[2022-07-24 06:46] LABS: CALCIUM 9.5 MG/DL (8.5-10.1)
[2022-07-24 06:47] LABS: TOTAL PROTEIN 8.8 GM/DL (6.4-8.2)
[2022-07-24 06:49] LABS: BILIRUBIN,TOTAL 0.3 MG/DL (0.1-1.0)
[2022-07-24 06:51] LABS: CREATININE SERUM 1.68 MG/DL (0.60-1.30)
[2022-07-24 06:58] LABS: EOSINOPHILS % (MANUAL) 3 %; LYMPHOCYTES % (MANUAL) 20 %; MONOCYTES % (MANUAL) 9 %; NEUTROPHILS % (MANUAL) 68 %; RBC MORPH NORMAL
--- NOTE | 2022-07-24 07:04 | Progress Note - Surgery ---
KEVIN MCCARTY 07/24/22 0704: Subjective Date Seen by a Provider: Jul 24, 2022 Time Seen by a Provider: 07:00 Subjective/Events-last exam Patient is awake in his bed this morning, no family at bedside. Patient reports his pain is well controlled. Patient reports no new symptoms. Review of Systems General: No Chills, No Night Sweats HEENT: No Visual Changes Pulmonary: No Dyspnea, No Cough Cardiovascular: No: Chest Pain, Palpitations Gastrointestinal: No: Nausea, Vomiting Genitourinary: No Dysuria, No Frequency Musculoskeletal: No: neck pain, shoulder pain Neurological: No: Numbness, Incoordination Objective Exam Vital Signs Date Time Temp Pulse Resp B/P (MAP) Pulse Ox O2 Delivery O2 Flow Rate FiO2 07/24/22 04:11 36.8 75 18 138/75 (96) 93 Room Air 07/23/22 23:29 36.8 78 18 166/77 (106) 94 Room Air 07/23/22 20:15 Room Air 0.00 07/23/22 19:50 37.1 75 20 129/74 (92) 94 Room Air 07/23/22 15:59 36.8 80 18 144/71 (95) 95 Room Air 07/23/22 12:00 36.6 86 16 121/70 (87) 97 Room Air 07/23/22 08:27 Room Air 0.00 07/23/22 08:00 36.5 76 19 116/74 (88) 93 Room Air 07/23/22 08:00 Room Air 0.00 I & O 07/24/22 07:00 Intake Total 4590 ml Output Total 1675 ml Balance 2915 ml Capillary Refill : Less Than 3 Seconds General Appearance: No Apparent Distress, WD/WN, Chronically ill HEENT: PERRL/EOMI, Normal ENT Inspection Neck: Normal Inspection, Supple Respiratory: Lungs Clear Cardiovascular: Regular Rate, Rhythm Peripheral Pulses: 2+ Radial Pulses (R), 2+ Radial Pulses (L) Gastrointestinal: normal bowel sounds, non tender, soft Extremity: Normal Range of Motion, Other (Right BKA. Dressing C/D/I) Neurologic/Psychiatric: Alert, Oriented x3 Skin: Normal Color, Warm/Dry Lymphatic: No Adenopathy Results Lab Laboratory Tests 07/23/22 12:16: Glucometer 235H 07/23/22 16:05: Glucometer 277H 07/23/22 20:17: Glucometer 258H 07/24/22 05:41: Glucometer 222H 07/24/22 06:01: White Blood Count 14.7H, Red Blood Count 3.07L, Hemoglobin 8.6L, Hematocrit 26L, Mean Corpuscular Volume 86, Mean Corpuscular Hemoglobin 28, Mean Corpuscular Hemoglobin Concent 33, Red Cell Distribution Width 15.2H, Platelet Count 934H, Mean Platelet Volume 9.5, Immature Granulocyte % (Auto) 1, Neutrophils (%) (Auto) 68, Lymphocytes (%) (Auto) 22, Monocytes (%) (Auto) 7, Eosinophils (%) (Auto) 2, Basophils (%) (Auto) 1, Neutrophils # (Auto) 10.0H, Lymphocytes # (Auto) 3.2, Monocytes # (Auto) 1.1H, Eosinophils # (Auto) 0.3, Basophils # (Auto) 0.1, Immature Granulocyte # (Auto) 0.1, Neutrophils % (Manual) 68, Ly mphocytes % (Manual) 20, Monocytes % (Manual) 9, Eosinophils % (Manual) 3, Blood Morphology Comment NORMAL, Sodium Level 134L, Potassium Level 4.8, Chloride Level 100, Carbon Dioxide Level 21, Anion Gap 13, Blood Urea Nitrogen 41H, Creatinine 1.68H, Estimat Glomerular Filtration Rate 43, BUN/Creatinine Ratio 24, Glucose Level 225H, Calcium Level 9.5, Corrected Calcium 10.4H, Total Bilirubin 0.3, Aspartate Amino Transf (AST/SGOT) 38H, Alanine Aminotransferase (ALT/SGPT) 28, Alkaline Phosphatase 206H, Total Protein 8.8H, Albumin 2.9L Microbiology 07/12/22 Gram Stain - Final, Complete 07/12/22 Wound Culture - Final, Complete Enterococcus faecalis Staphylococcus aureus Assessment/Plan Assessment/Plan Assessment/Plan S/P right BKA Anemia Follow labs/hgb and transfuse as needed. Anticoagulants on hold. Continue pain control. Continue working with KATTY FUENTES DO 07/24/22 0953: Subjective Subjective/Events-last exam Patient in bed with at bedside. Pain controlled. He is wanting out of here. Tolerating diet. Denies n/v fever sweats chills shortness of breath or chest pain. Objective Exam General Appearance: No Apparent Distress, WD/WN, Chronically ill HEENT: PERRL/EOMI, Normal ENT Inspection Neck: Normal Inspection, Supple Respiratory: Chest Non Tender, No Accessory Muscle Use, No Respiratory Distress Cardiovascular: Regular Rate, Rhythm, No JVD Gastrointestinal: non tender, soft Extremity: Normal Range of Motion, Non Tender, Other (Right BKA. incision C/D/I no signs of infection) Neurologic/Psychiatric: Alert, Disoriented Skin: Normal Color, Warm/Dry Lymphatic: No Adenopathy Assessment/Plan Assessment/Plan Assessment/Plan S/P right BKA Anemia Follow labs/hgb and transfuse as needed. Continue pain control. Continue working with PT. Work on placement Supervisory-Addendum Brief Verification & Attestation Participated in pt care: history, MDM, physical Personally performed: exam, history, MDM, supervision of care Care discussed with: Medical Student Procedures: n/a Results interpretation: Verified all documentation Verification and Attestation of Medical Student E/M Service A medical student performed and documented this service in my presence. I reviewed and verified all information documented by the medical student and made modifications to such information, when appropriate. I personally performed the physical exam and medical decision making. Katty Patrick, Jul 24, 2022,09:53 KEVIN MCCARTY Jul 24, 2022 07:04 KATTY PATRICK DO Jul 24, 2022 09:53
[2022-07-24 08:00] VITALS: BP 135/77
[2022-07-24] MEDS: amLODIPine 10 MG (NORVASC) TAB PO SCH (08:30)
[2022-07-24] MEDS: MIRABEGRON 25 MG TAB (MYRBETRIQ) PO SCH (08:30)
--- NOTE | 2022-07-24 08:49 | Cardiology Progress Note ---
Subjective Date Seen by Provider: Jul 24, 2022 Time Seen by Provider: 08:47 Subjective/Events-last exam Patient sitting up in bed, denies any chest pain or dyspnea. Objective-Cardiology Exam Last Set of Vital Signs Vital Signs 07/23/22 07/24/22 20:15 08:00 Temp 36.9 Pulse 80 Resp 20 B/P (MAP) 135/77 (96) Pulse Ox 95 O2 Delivery Room Air O2 Flow Rate 0.00 I&O Intake and Output 07/24/22 00:00 Intake Total 5740 ml Output Total 2225 ml Balance 3515 ml Intake Oral 1740 ml IV Total 4000 ml Output Urine Total 2225 ml # Bowel Movements 2 General: Alert, Cooperative, No Acute Distress HEENT: Atraumatic, PERRLA Neck: Supple, No JVD, No Thyromegaly Lungs: Clear to Auscultation, Normal Air Movement Heart: Regular Rate, Normal S1, Normal S2, No Murmurs Abdomen: Normal Bowel Sounds, Soft, No Tenderness, No Masses Extremities: Other (Right BKA) Skin: No Rashes, No Breakdown, No Significant Lesion Neuro: Normal Gait, Normal Speech, Strength at 5/5 X4 Ext, Normal Tone, Sensation Intact Psych/Mental Status: Other (patient was unable to answer most question. ) Results Lab Laboratory Tests 07/24/22 06:01 A/P-Cardiology Admission Diagnosis PVD HTN HLP DM Assessment/Plan Peripheral vascular disease, Ischemic gangrene of the right toe. Nonhealing ulcer. Peripheral angiogram was done on July 03, 2022 with balloon angioplasty to the right SFA, right tibioperoneal trunk and right posterior tibial artery. The anterior tibial artery is occluded and not reconstructed. No intervention was done on it. Status post amputation of the right second toe done by Dr. Dahl on July 04, 2022 Peripheral angiogram was done again on July 13, 2022, has occlusion of the distal posterior tibial artery, I was able to do balloon angioplasty to the posterior tibial artery down to the ankle, the peroneal artery is open. There is a total occlusion at the ostium of the anterior tibial artery S/P right BKA, recovering slowly. Managed by medical team Anemia, continue to monitor H/H Status post recent CVA, was transferred from [facility] to [facility] in [place]. Doing better at this time. Managed by medical team. Clinically stable Generalized malaise and weakness Hyperkalemia, was maintained on losartan as outpatient, improved after discontinuing Continue to monitor. Unable to tolerate CAIO-I or ARB d/t hyperkalemia. Hyperlipidemia, maintained on Lipitor 80 mg daily Hypertension, controlled Intolerant to CAIO inhibitor and/or ARB due to hyperkalemia Maintained on amlodipine 10 mg daily, hydralazine Diabetes mellitus, followed and managed by primary care physician Twelve-lead EKG showed sinus rhythm with low voltage, nonspecific T wave abnormality History of tobaccoism in the remote past. Cardiology to sign off at this time. Please reconsult if needed. Supervisory-Addendum Brief Supervisory Addendum Participated in pt care: history, MDM, physical Personally performed: exam, history, MDM Care discussed with: PAWEL Results interpretation: Verified all documentation Notes: Patient was seen and evaluated with Mone, examination performed, management plan was discussed, agree with the current scribed note, I made few changes to the note using Italic font Patient was seen at bedside, laying down comfortably Blood pressure is better controlled Asking to be discharged. Cardiac status appears to be stable I will sign off and we can follow-up as an outpatient. MONE GALE Jul 24, 2022 08:49 BRITTANY CARRERO MD Jul 24, 2022 09:48
--- NOTE | 2022-07-24 10:50 | Occupational Ther Daily Note ---
OT Current Status-Daily Note Subjective Pt alert, lying in bed. Nrsg in room. Pt states multiple times "I just want to get out of here." Nrsg redirects pt. Nrsg donning stump hogshead cooper. present in room. Mental Status/Objective Patient Orientation: Person, Confused ADL-Treatment Therapy Code Descriptions/Definitions Functional [place] Measure: 0=Not Assessed/NA 4=Minimal Assistance 1=Total Assistance 5=Supervision or Setup 2=Maximal Assistance 6=Modified [place] 3=Moderate Assistance 7=Complete IndependenceSCALE: Activities may be completed with or without assistive devices. 9-Pwxbcvzmwn-mjtfefy completes the activity by him/herself with no assistance from a helper. 5-Set-up or Clean-up Assistance-helper sets up or cleans up; patient completes activity. [place] assists only prior to or following the activity. 4-Supervision or Touching Assistance-helper provides verbal cues and/or touching/steadying and/or contact guard assistance as patient completes activity. Assistance may be provided throughout the activity or intermittently. 3-Partial/Moderate Assistance-helper does LESS THAN HALF the effort. [place] lifts, holds or supports trunk or limbs, but provides less than half the effort. 2-Substantial/Maximal Assistance-helper does MORE THAN HALF the effort. [place] lifts or holds trunk or limbs and provides more than half the effort. 8-Yzmivcyuq-wmbzsq does ALL the effort. Patient does none of the effort to complete the activity. Or, the assistance of 2 or more helpers is required for the patient to complete the activity. If activity was not attempted, code reason: 7-Patient Refused. 9-Not Applicable-not attempted and the patient did not perform the activity before the current illness, exacerbation or injury. 10-Not Attempted due to Environmental Limitations-(lack of equipment, weather restraints, etc.). 88-Not Attempted due to Medical Conditions or Safety Concerns. Other Treatment Pt agrees to complete oral care stating "I don't care." Pt was set up for oral care then pt attempted to complete hygiene though inefficient and required ass istance for thorough cleansing. Pt did not rinse/spit only swallowed toothpaste. AAROM for exercising B UE's due to pt inability to follow directions. Pt tolerated 3 exercises 1 set 10 reps before falling asleep. After session, pt lying in bed with call light/phone in reach. Safety measures in place. All needs met. OT Fpc Goals Fpc Goals Time Frame: Aug 07, 2022 Eating (QC): 5 Oral Hygiene (QC): 4 Toileting Hygiene (QC): 3 Shower/Bathe Self (QC): 2 Upper Body Dressing (QC): 3 Lower Body Dressing (QC): 2 On/Off Footwear (QC): 2 1=Demonstrate adherence to instructed precautions during ADL tasks. 2=Patient will verbalize/demonstrate understanding of assistive devices/modif ications for ADL. 3=Patient will improve strength/tolerance for activity to enable patient to perform ADL's. OT Education/Plan Problem List/Assessment Assessment: Decreased Activ Tolerance, Decreased Safety Aware, Decreased UE Strength, Dependent Transfers, Impaired Bed Mobility, Impaired Cognition, Impaired Self-Care Skills, Restricted Funct UE ROM Discharge Recommendations Plan/Recommendations: Continue POC Treatment Plan/Plan of Care Patient would benefit from OT for education, treatment and training to promote independence in ADL's, mobility, safety and/or upper extremity function for ADL's. Plan of Care: ADL Retraining, Caregiver Training, Functional Mobility, Group Exercise/Act as Ind, UE Funct Exercise/Act, W/C Management Training Treatment Duration: Aug 07, 2022 Frequency: 3 times per week (3-5x/week) Estimated Hrs Per Day: .25 hour per day Rehab Potential: Poor Time/GCodes Start Time: 10:15 Stop Time: 10:30 Total Time Billed (hr/min): 15 Billed Treatment Time 1 visit-FA 1 (15 min) WARREN LAWRENCE Jul 24, 2022 10:50
[2022-07-24] MEDS: LORazepam 0.5 MG (ATIVAN) TABLET PO PRN ×2 (11:34→17:03)
--- NOTE | 2022-07-24 11:47 | Physical Therapy Daily Note ---
PT Daily Note-Current Subjective Patient agrees to PT. Transfers SCALE: Activities may be completed with or without assistive devices. 9-Feweqhastb-obeposa completes the activity by him/herself with no assistance from a helper. 5-Set-up or Clean-up Assistance-helper sets up or cleans up; patient completes activity. Means assists only prior to or following the activity. 4-Supervision or Touching Assistance-helper provides verbal cues and/or touching/steadying and/or contact guard assistance as patient completes activity. Assistance may be provided throughout the activity or intermittently. 3-Partial/Moderate Assistance-helper does LESS THAN HALF the effort. Means lifts, holds or supports trunk or limbs, but provides less than half the effort. 2-Substantial/Maximal Assistance-helper does MORE THAN HALF the effort. Means lifts or holds trunk or limbs and provides more than half the effort. 5-Gklodqgfb-vlufmw does ALL the effort. Patient does none of the effort to complete the activity. Or, the assistance of 2 or more helpers is required for the patient to complete the activity. If activity was not attempted, code reason: 7-Patient Refused. 9-Not Applicable-not attempted and the patient did not perform the activity before the current illness, exacerbation or injury. 10-Not Attempted due to Environmental Limitations-(lack of equipment, weather restraints, etc.). 88-Not Attempted due to Medical Conditions or Safety Concerns. Lying to Sitting/Side of Bed(Q: 1 Sit to Stand (QC): 1 Chair/Mso-rk-Ybgxo Xfer(QC): 1 Weight Bearing Right Lower Extremity: Right Non Weight Bearing Left Lower Extremity: Left Full Weight Bearing Exercises Seated Therapy Exercises: Long arc quads Seated Reps: 15 (right BKA flexion contracture with stretching) Assessment Patient to dismiss to ND on this date for continued care. Patient making very slow progress. PT Nurses Assistant Goals Detention Goals PT Nurses Assistant Goals Time Frame: Jul 28, 2022 Roll Left & Right (QC): 4 Sit to Lying (QC): 4 Lying-Sitting on Side/Bed(QC): 4 Sit to Stand (QC): 4 Chair/Kem-yd-Vcwoa Xfer(QC): 3 Toilet Transfer (QC): 3 Does the Patient Walk: No and Walking Goal IS indicated Walk 10 feet (QC): 2 Does the Pt use WC or Scooter?: Yes Wheel 50 feet with 2 turns (QC: 4 Type: Manual Wheel 150 feet: 4 Type: Manual PT Plan Treatment/Plan Treatment Plan: Continue Plan of Care Treatment Plan: Bed Mobility, Education, Functional Activity Pola, Functional Strength, Gait, Safety, Therapeutic Exercise, Transfers Treatment Duration: Aug 11, 2022 Frequency: 6 times per week Estimated Hrs Per Day: .25 hour per day Patient and/or Family Agrees t: Yes Time/GCodes Time In: 1130 Time Out: 1140 Total Billed Treatment Time: 10 Total Billed Treatment 1 visit FA 10 min AUGUSTUS HOOPER PT Jul 24, 2022 11:47
[2022-07-24 12:57] VITALS: BP 135/80
--- NOTE | 2022-07-24 15:04 | Progress Note ---
Subjective Subjective/Events-last exam Pt seen at 1120: at bedside. Pt wanting to go home as soon as possible. Speech is dysarthric and he is mildly agitated, continues to repeat he is ready to go. Objective Exam Last Set of Vital Signs Vital Signs Date Time Temp Pulse Resp B/P (MAP) Pulse Ox O2 Delivery O2 Flow Rate FiO2 07/24/22 12:57 36.8 82 19 135/80 (98) 95 Room Air 07/23/22 20:15 0.00 Capillary Refill : Less Than 3 Seconds I&O Intake and Output 07/24/22 00:00 Intake Total 5740 ml Output Total 2225 ml Balance 3515 ml Intake Oral 1740 ml IV Total 4000 ml Output Urine Total 2225 ml # Bowel Movements 2 General: Alert, Mild Distress (appears frustrated) Lungs: Clear to Auscultation Heart: Regular Rate Abdomen: Normal Bowel Sounds, Soft Neuro: Other (speech somewhat difficult to understand, slightly agitated) Results/Procedures Lab Laboratory Tests 07/23/22 16:05: Glucometer 277H 07/23/22 20:17: Glucometer 258H 07/24/22 05:41: Glucometer 222H 07/24/22 06:01: White Blood Count 14.7H, Red Blood Count 3.07L, Hemoglobin 8.6L, Hematocrit 26L, Mean Corpuscular Volume 86, Mean Corpuscular Hemoglobin 28, Mean Corpuscular Hemoglobin Concent 33, Red Cell Distribution Width 15.2H, Platelet Count 934H, Mean Platelet Volume 9.5, Immature Granulocyte % (Auto) 1, Neutrophils (%) (Auto) 68, Lymphocytes (%) (Auto) 22, Monocytes (%) (Auto) 7, Eosinophils (%) (Auto) 2, Basophils (%) (Auto) 1, Neutrophils # (Auto) 10.0H, Lymphocytes # (Auto) 3.2, Monocytes # (Auto) 1.1H, Eosinophils # (Auto) 0.3, Basophils # (Auto) 0.1, Immature Granulocyte # (Auto) 0.1, Neutrophils % (Manual) 68, Lymphocytes % (Manual) 20, Monocytes % (Manual) 9, Eosinophils % (Manual) 3, Blood Morphology Comment NORMAL, Sodium Level 134L, Potassium Level 4.8, Chloride Level 100, Carbon Dioxide Level 21, Anion Gap 13, Blood Urea Nitrogen 41H, Creatinine 1.68H, Estimat Glomerular Filtration Rate 43, BUN/Creatinine R atio 24, Glucose Level 225H, Calcium Level 9.5, Corrected Calcium 10.4H, Total Bilirubin 0.3, Aspartate Amino Transf (AST/SGOT) 38H, Alanine Aminotransferase (ALT/SGPT) 28, Alkaline Phosphatase 206H, Total Protein 8.8H, Albumin 2.9L 07/24/22 11:47: Glucometer 254H Microbiology 07/12/22 Gram Stain - Final, Complete 07/12/22 Wound Culture - Final, Complete Enterococcus faecalis Staphylococcus aureus Assessment/Plan Assessment/Plan (1) Ischemic ulcer of right foot Status: Acute Assessment & Plan: Persistent non-healing wound after amputation of right digit due to osteomyelitis Jul 04. Appreciate Wound care and Surgery recs. Right BKA done. (2) Right below-knee amputee Assessment & Plan: Surgery management. PT. (3) PVD (peripheral vascular disease) Status: Chronic Assessment & Plan: History of nonhealing wound to right foot, underwent peripheral angiogram with balloon angiopasty to right posterial tibial artery on 07/03/22, followed by toe amputations 07/04/22, on this admit noted to have ischemia of right foot digits, repeat angiogram on 07/13/22 showed occlusion of the distal posterior tibial artery treated with balloon angioplasty to posterior tibial artery. Total occlusion at ostium of anterior tibial artery. Appreciate Cardiology recommendations. (4) Frequent falls Status: Acute Assessment & Plan: Frequent falls prior to admit, difficulty managing at home, plan for SNF on d/c. PT/OT. (5) Hypothyroidism Status: Chronic (6) Diabetes mellitus, type 2 Status: Chronic (7) COPD (chronic obstructive pulmonary disease) Status: Chronic (8) CKD (chronic kidney disease) stage 3, GFR 30-59 ml/min Status: Chronic (9) Hypertension Status: Chronic (10) Gastroparesis due to DM Status: Chronic (11) Hyperlipidemia Status: Chronic (12) Cerebrovascular disease Status: Chronic Assessment & Plan: Dysarthric at baseline. Multiple ischemic areas consistent with showering emboli found May 2022, MRA with bilateral High-grade narrowing of 90-99% of both MCA M1 segments, this was discussed with [facility] Stroke and no intervention recommended. He was transferred due to worsening renal insufficiency at that hospitalization. Continue atorvastatin, asa and blood pressure control. (13) DVT prophylaxis Status: Acute Assessment & Plan: Enoxaparin held prior to Surgery, resume when okay with Surgery ERENDIRA SERRANO MD Jul 24, 2022 15:04
[2022-07-24 16:21] VITALS: BP 126/69
[2022-07-24 20:34] VITALS: BP 155/79
[2022-07-24] MEDS ORDERED: RT-ALBUTEROL SULF 2.5 MG/3 ML PRE-MIX VIAL IH PRN (21:45)
[2022-07-24] MEDS ORDERED: COLESEVELAM HCL 625 MG PO PRN (21:45)
[2022-07-24] MEDS ORDERED: PANTOPRAZOLE 20 MG TABLET (PROTONIX) PO PRN (22:00)
[2022-07-24] MEDS ORDERED: VITAMIN D3 125 MCG (5,000 UNITS) CAPSULE PO SCH (22:00)
[2022-07-24 23:40] VITALS: BP 127/71
[2022-07-25 03:44] VITALS: BP 121/67
[2022-07-25 05:20] LABS: BASOPHILS # (AUTO) 0.1 10^3/uL (0.0-0.1); BASOPHILS % (AUTO) 1 % (0-10); EOSINOPHILS # (AUTO) 0.4 10^3/uL (0.0-0.3); EOSINOPHILS % (AUTO) 3 % (0-10); HEMATOCRIT 24 % (40-54); HEMOGLOBIN 7.7 g/dL (13.3-17.7); LYMPHOCYTES % (AUTO) 29 % (12-44); MEAN CORPUSCULAR HEMOGLOBIN 28 pg (25-34); MEAN CORPUSCULAR HGB CONC 32 g/dL (32-36); MEAN CORPUSCULAR VOLUME 87 fL (80-99); MEAN PLATELET VOLUME 8.9 fL (9.0-12.2); MONOCYTES # (AUTO) 1.1 10^3/uL (0.0-1.0); MONOCYTES % (AUTO) 8 % (0-12); NEUTROPHILS # (AUTO) 8.2 10^3/uL (1.8-7.8); NEUTROPHILS % (AUTO) 59 % (42-75); PLATELET COUNT 940 10^3/uL (130-400); WHITE BLOOD COUNT 13.8 10^3/uL (4.3-11.0)
[2022-07-25] MEDS: LEVOTHYROXINE 125 MCG (LEVOTHROID) TABLET PO SCH (05:28)
[2022-07-25] MEDS: CATHETER FLUSH 10 ML SYR IVP SCH (05:28)
[2022-07-25] MEDS: hydrALAZINE (APRESOLINE) 25 MG TAB PO SCH (05:28)
[2022-07-25] MEDS: inSUlin ASPART (NovoLOG) 1 UNIT/0.01 ML (CHARGE PER UNIT) SC SCH (05:28)
[2022-07-25 05:31] LABS: ALBUMIN 2.8 GM/DL (3.2-4.5); POTASSIUM 4.7 MMOL/L (3.6-5.0)
[2022-07-25 05:32] LABS: CALCIUM 9.6 MG/DL (8.5-10.1)
[2022-07-25 05:34] LABS: TOTAL PROTEIN 8.5 GM/DL (6.4-8.2)
[2022-07-25 05:35] LABS: BILIRUBIN,TOTAL 0.2 MG/DL (0.1-1.0)
[2022-07-25 05:37] LABS: CREATININE SERUM 1.58 MG/DL (0.60-1.30)
--- NOTE | 2022-07-25 06:18 | Progress Note - Surgery ---
Subjective Date Seen by a Provider: Jul 25, 2022 Time Seen by a Provider: 06:16 Subjective/Events-last exam Patient is awake and alert this morning, no family at bedside. Patient reports that his pain is well controlled and reports no new symptoms. Patient has been tolerating diet. Review of Systems General: No Chills, No Night Sweats HEENT: No Head Aches, No Visual Changes Pulmonary: No Dyspnea, No Cough Cardiovascular: No: Chest Pain, Palpitations Gastrointestinal: No: Nausea, Vomiting Genitourinary: No Dysuria, No Frequency Musculoskeletal: No: neck pain, shoulder pain Neurological: No: Numbness, Incoordination Objective Exam Vital Signs Date Time Temp Pulse Resp B/P (MAP) Pulse Ox O2 Delivery O2 Flow Rate FiO2 07/25/22 03:44 36.8 90 18 121/67 (85) 98 Room Air 07/24/22 23:40 36.7 73 20 127/71 (89) 97 Room Air 07/24/22 20:34 37.1 78 22 155/79 (104) 95 Room Air 07/24/22 20:00 Room Air 07/24/22 16:21 37.2 82 20 126/69 (88) 94 Room Air 07/24/22 12:57 36.8 82 19 135/80 (98) 95 Room Air 07/24/22 08:00 Room Air 07/24/22 08:00 36.9 80 20 135/77 (96) 95 Room Air I & O 07/25/22 06:59 Intake Total 1650 ml Output Total 1725 ml Balance -75 ml Capillary Refill : Less Than 3 Seconds General Appearance: No Apparent Distress, WD/WN, Chronically ill HEENT: PERRL/EOMI, Normal ENT Inspection Neck: Normal Inspection, Supple Respiratory: Chest Non Tender, No Accessory Muscle Use, No Respiratory Distress Cardiovascular: Regular Rate, Rhythm, No JVD Peripheral Pulses: 2+ Radial Pulses (R), 2+ Radial Pulses (L) Gastrointestinal: non tender, soft Extremity: Normal Range of Motion, Non Tender, Other (Right BKA. incision C/D/I no signs of infection) Neurologic/Psychiatric: Alert, Disoriented Skin: Normal Color, Warm/Dry Lymphatic: No Adenopathy Results Lab Laboratory Tests 07/24/22 11:47: Glucometer 254H 07/24/22 16:25: Glucometer 287H 07/24/22 20:39: Glucometer 230H 07/25/22 04:54: Glucometer 203H 07/25/22 05:14: White Blood Count 13.8H, Red Blood Count 2.76L, Hemoglobin 7.7L, Hematocrit 24L, Mean Corpuscular Volume 87, Mean Corpuscular Hemoglobin 28, Mean Corpuscular Hemoglobin Concent 32, Red Cell Distribution Width 15.0H, Platelet Count 940H, Mean Platelet Volume 8.9L, Immature Granulocyte % (Auto) 0, Neutrophils (%) (Auto) 59, Lymphocytes (%) (Auto) 29, Monocytes (%) (Auto) 8, Eosinophils (%) (Auto) 3, Basophils (%) (Auto) 1, Neutrophils # (Auto) 8.2H, Lymphocytes # (Auto) 4.0, Monocytes # (Auto) 1.1H, Eosinophils # (Auto) 0.4H, Basophils # (Auto) 0.1, Immature Granulocyte # (Auto) 0.1, Sodium Level 136, Potassium Level 4.7, Chloride Level 102, Carbon Dioxide Level 23, Anion Gap 11, Blood Urea Nitrogen 41H, Creatinine 1.58H, Estimat Glomerular Filtration Rate 47, BUN/Creatinine Ratio 26, Glucose Level 204H, Calcium Level 9.6, Corrected Calcium 10.6H, Total Bilirubin 0.2, Aspartate Amino Transf (AST/SGOT) 32, Alanine Aminotransferase (ALT/SGPT) 26, Alkaline Phosphatase 185H, Total Protein 8.5H, Albumin 2.8L Microbiology 07/12/22 Gram Stain - Final, Complete 07/12/22 Wound Culture - Final, Complete Enterococcus faecalis Staphylococcus aureus Assessment/Plan Assessment/Plan Assessment/Plan S/P right BKA Anemia Follow labs/hgb and transfuse as needed. Continue pain control. Continue working with PT. Working on placement KEVIN MCCARTY Jul 25, 2022 06:18
[2022-07-25 07:54] VITALS: BP 132/71
[2022-07-25] MEDS: amLODIPine 10 MG (NORVASC) TAB PO SCH (08:40)
[2022-07-25] MEDS: LORazepam 0.5 MG (ATIVAN) TABLET PO PRN (08:40)
[2022-07-25] MEDS: ASPIRIN E.C. 81 MG (ECOTRIN) TAB PO SCH (08:40)
[2022-07-25] MEDS: MIRABEGRON 25 MG TAB (MYRBETRIQ) PO SCH (08:41)
[2022-07-25] MEDS ORDERED: VENlafaxine 75 MG (EFFEXOR) TAB PO SCH (09:00)
[2022-07-25] MEDS ORDERED: CLOPIDOGREL 75 MG (PLAVIX) TABLET PO SCH (09:00)
[2022-07-25] MEDS ORDERED: LOSARTAN 100 MG (COZAAR) TABLET PO SCH (09:00)
[2022-07-25] MEDS ORDERED: inSUlin ASPART (NovoLOG) 1 UNIT/0.01 ML (CHARGE PER UNIT) SQ SCH (09:00)
[2022-07-25] MEDS: HYDROcodone/APAP 5 MG/325 MG (LORTAB) TAB PO PRN (10:23)
--- NOTE | 2022-07-25 11:08 | Physical Therapy Daily Note ---
PT Daily Note-Current Subjective Patient agrees to PT. Spouse present. Mental Status Patient Orientation: Person Attachments: Gaffney Catheter Transfers SCALE: Activities may be completed with or without assistive devices. 2-Otdcxkqkef-uhfethb completes the activity by him/herself with no assistance from a helper. 5-Set-up or Clean-up Assistance-helper sets up or cleans up; patient completes activity. Maunie assists only prior to or following the activity. 4-Supervision or Touching Assistance-helper provides verbal cues and/or touching/steadying and/or contact guard assistance as patient completes activity. Assistance may be provided throughout the activity or intermittently. 3-Partial/Moderate Assistance-helper does LESS THAN HALF the effort. Maunie lifts, holds or supports trunk or limbs, but provides less than half the effort. 2-Substantial/Maximal Assistance-helper does MORE THAN HALF the effort. Maunie lifts or holds trunk or limbs and provides more than half the effort. 9-Xpzrbqvdj-qxiskw does ALL the effort. Patient does none of the effort to complete the activity. Or, the assistance of 2 or more helpers is required for the patient to complete the activity. If activity was not attempted, code reason: 7-Patient Refused. 9-Not Applicable-not attempted and the patient did not perform the activity before the current illness, exacerbation or injury. 10-Not Attempted due to Environmental Limitations-(lack of equipment, weather restraints, etc.). 88-Not Attempted due to Medical Conditions or Safety Concerns. Lying to Sitting/Side of Bed(Q: 2 Sit to Stand (QC): 1 Chair/Pfi-un-Pbfue Xfer(QC): 1 (blocked left knee to perform SPT) Weight Bearing Right Lower Extremity: Right Non Weight Bearing Left Lower Extremity: Left Full Weight Bearing Exercises Seated Therapy Exercises: Long arc quads, Hip flexion Seated Reps: 12 (stretched right hamstring ) Assessment Patient up in recliner with needs met. Patient continues to be dependent with sit to stand and SPT bed to recliner. Plan dismissal to MD on this date. PT Senior Living Goals Senior Living Goals PT Carbide Tool Die Maker Goals Time Frame: Jul 28, 2022 Roll Left & Right (QC): 4 Sit to Lying (QC): 4 Lying-Sitting on Side/Bed(QC): 4 Sit to Stand (QC): 4 Chair/Hds-ne-Tlygo Xfer(QC): 3 Toilet Transfer (QC): 3 Does the Patient Walk: No and Walking Goal IS indicated Walk 10 feet (QC): 2 Does the Pt use WC or Scooter?: Yes Wheel 50 feet with 2 turns (QC: 4 Type: Manual Wheel 150 feet: 4 Type: Manual PT Plan Treatment/Plan Treatment Plan: Continue Plan of Care Treatment Plan: Bed Mobility, Education, Functional Activity Pola, Functional Strength, Gait, Safety, Therapeutic Exercise, Transfers Treatment Duration: Aug 11, 2022 Frequency: 6 times per week Estimated Hrs Per Day: .25 hour per day Patient and/or Family Agrees t: Yes Time/GCodes Time In: 1045 Time Out: 1055 Total Billed Treatment Time: 10 Total Billed Treatment 1 visit EX 10 min AUGUSTUS HOOPER PT Jul 25, 2022 11:08
[2022-07-25 11:10] VITALS: BP 132/71
[2022-07-25] MEDS ORDERED: INSU100I14 SQ (11:16)
[2022-07-25] MEDS ORDERED: INSU200I4 SQ (11:16)
[2022-07-25] MEDS ORDERED: RT-ALBUINH IH (11:16)
[2022-07-25] MEDS ORDERED: ACHD5005 PO (11:16)
[2022-07-25] MEDS ORDERED: VNL75T PO (11:16)
[2022-07-25] MEDS ORDERED: ASPI-1238 PO (11:16)
[2022-07-25] MEDS ORDERED: ATOR80TA76 PO (11:16)
[2022-07-25] MEDS ORDERED: ALIR75PE5 INJ (11:16)
[2022-07-25] MEDS ORDERED: LEVO125T6 PO (11:16)
[2022-07-25] MEDS ORDERED: AMLO-251 PO (11:16)
[2022-07-25] MEDS ORDERED: SENN-145 PO (11:16)
[2022-07-25] MEDS ORDERED: HYDR-3923 PO (11:16)
[2022-07-25] MEDS ORDERED: MIRA50TA PO (11:16)
[2022-07-25] MEDS ORDERED: CLOP75TA28 PO (11:16)
[2022-07-25] MEDS ORDERED: OMEP20CA18 PO (11:16)
[2022-07-25] MEDS ORDERED: CHOL500049 PO (11:16)
[2022-07-25] MEDS ORDERED: COLE625T9 PO (11:16)
--- NOTE | 2022-07-25 11:22 | Discharge Inst-Skilled Nursing ---
Discharge Inst-Skilled NF Patient Instructions Patient Problems: See problem list Patient Instructions: Follow up with Surgery as directed. Follow up with primary within a week of discharge. Consult/Follow Up/Orders Skilled NF Admit to: [facility] Certifications SNF I certify that SNF services are required to be given on an inpatient basis because of the above named patient's need for [place] [facility] care on a continuing basis for the conditions(s) for which he/she was receiving inpatient hospital services prior to his/her transfer to the SNF. Detention Facility Order: Nursing Services, Braze Operator-Evaluate & Treat, Physical Therapy-Evaluate & Treat, Speech Language-Evaluate & Treat Oxygen Delivery Method: Room Air Discharge Diet: ADA Diet Discharge Medications New Medications: Amlodipine Besylate (Amlodipine Besylate) 10 Mg Tablet 10 MG PO DAILY, #30 TAB 0 Refills Hydralazine HCl (Hydralazine HCl) 25 Mg Tablet 25 MG PO Q8HR, #90 TAB 0 Refills Changed Medications: Clopidogrel Bisulfate (Clopidogrel) 75 Mg Tablet 75 MG PO DAILY, #30 TAB 0 Refills (Changed from: Refills: ) Until 08/20/22 Insulin Degludec (Tresiba Flextouch U-200) 200 Unit/Ml (3 Ml) Insuln.pen 10 UNIT SQ DAILY, #1 EA 0 Refills (Changed from: 72 UNIT; Removed Reason; Refills: ) Omeprazole (Omeprazole) 20 Mg Capsule.dr 20 MG PO HS, #30 CAP 0 Refills (Changed from: Removed Reason; Refills: ) Venlafaxine HCl (Venlafaxine HCl) 75 Mg Tab 75 MG PO DAILY, #30 TAB 0 Refills (Changed from: Removed Days; Refills: ; Removed Instructions) Continued Medications: Albuterol Sulfate (Proair Hfa) 1 Puff Puff 2 PUFF IH Q4H PRN for SHORTNESS OF BREATH, #1 EA 0 Refills (This prescription has been renewed) Alirocumab (Praluent Pen) 75 Mg/Ml Pen.injctr 75 MG INJ EVERY 2 WEEKS, #1 EA 0 Refills (This prescription has been renewed) Aspirin (Aspirin EC) 81 Mg Tablet.dr 81 MG PO DAILY, #30 TAB 0 Refills (This prescription has been renewed) Atorvastatin Calcium (Atorvastatin Calcium) 80 Mg Tablet 80 MG PO HS, #30 TAB 0 Refills (This prescription has been renewed) Cholecalciferol (Vitamin D3) (Vitamin D3) 1,250 Mcg (51040 Unit) Capsule 1250 MCG PO FRIDAYS, #4 CAP 0 Refills (This prescription has been renewed) Colesevelam HCl (Welchol) 625 Mg Tablet 625 MG PO TID PRN for DIARRHEA, #90 TAB 0 Refills (This prescription has been renewed) Hydrocodone/Acetaminophen (Hydrocodone-Acetamin 5-325 mg) 5 Mg-325 Mg Tablet 1 TAB PO Q8H PRN for PAIN-MODERATE (5-7), #15 TAB 0 Refills (This prescription has been renewed) Insulin Aspart (Novolog Flexpen) 100 Unit/Ml (3 Ml) Solution 5 UNITS SQ TIDPC, #1 EA 0 Refills (This prescription has been renewed) Levothyroxine Sodium (Levothyroxine Sodium) 125 Mcg Tablet 125 MCG PO DAILY, #30 TAB 0 Refills (This prescription has been renewed) Mirabegron (Myrbetriq) 50 Mg Tab.er.24h 50 MG PO DAILY, #30 TAB 0 Refills (This prescription has been renewed) Sennosides/Docusate Sodium (Senna S Tablet) 8.6 Mg-50 Mg Tablet 2 EACH PO BID PRN for CONSTIPATION-6TH LINE, #60 TAB 0 Refills (This prescription has been renewed) Discontinued Medications: Amlodipine Besylate (Amlodipine Besylate) 5 Mg Tablet 5 MG PO DAILY, TAB Cefdinir (Cefdinir) 300 Mg Capsule 300 MG PO BID, CAP FILLED 07-07-2022 #14/7 DAY SUPPLY Linezolid (Zyvox) 600 Mg Tablet 600 MG PO BID, TAB FILLED 07-07-2022 #14/7 DAY SUPPLY Losartan Potassium (Losartan Potassium) 100 Mg Tablet 100 MG PO DAILY, TAB Metoclopramide HCl (Reglan) 10 Mg Tablet 10 MG PO QIDACHS PRN for NAUSEA/VOMITING-3RD LINE, TAB Erendira N Randy Jul 25, 2022 11:18 Diagnosis/Problems Problems/Diagonsis (1) Right below-knee amputee (2) Gaffney catheter in place (3) COPD (chronic obstructive pulmonary disease) Status: Chronic (4) Diabetes mellitus, type 2 Status: Chronic (5) Hypothyroidism Status: Chronic (6) CKD (chronic kidney disease) stage 3, GFR 30-59 ml/min Status: Chronic (7) Urinary retention (8) Frequent falls Status: Acute (9) Hypertension Status: Chronic (10) PVD (peripheral vascular disease) Status: Chronic (11) Cerebrovascular disease Status: Chronic (12) Stenosis of both middle cerebral arteries Status: Acute (13) Dysarthria Status: Acute ERENDIRA SERRANO MD Jul 25, 2022 11:22
--- NOTE | 2022-07-25 11:22 | Discharge Summary ---
Discharge Summary Hospital Course Problems/Diagnosis: (1) Ischemic ulcer of right foot Status: Acute Assessment & Plan: Persistent non-healing wound after amputation of right digit due to osteomyelitis Jul 04. Appreciate Wound care and Surgery recs. Ultimately right BKA done. (2) Right below-knee amputee Assessment & Plan: Surgery management. PT. (3) PVD (peripheral vascular disease) Status: Chronic Assessment & Plan: History of nonhealing wound to right foot, underwent peripheral angiogram with balloon angiopasty to right posterial tibial artery on 07/03/22, followed by toe amputations 07/04/22, on this admit noted to have ischemia of right foot digits, repeat angiogram on 07/13/22 showed occlusion of the distal posterior tibial artery treated with balloon angioplasty to posterior tibial artery. Total occlusion at ostium of anterior tibial artery. (4) Frequent falls Status: Acute Assessment & Plan: Frequent falls prior to admit, difficulty managing at home, now with BKA, discharged to SNF. (5) Hypothyroidism Status: Chronic (6) Diabetes mellitus, type 2 Status: Chronic (7) COPD (chronic obstructive pulmonary disease) Status: Chronic (8) CKD (chronic kidney disease) stage 3, GFR 30-59 ml/min Status: Chronic (9) Hypertension Status: Chronic (10) Gastroparesis due to DM Status: Chronic (11) Hyperlipidemia Status: Chronic (12) Cerebrovascular disease Status: Chronic Assessment & Plan: Dysarthric at baseline. Multiple ischemic areas consistent with showering emboli found May 2022, MRA with bilateral High-grade narrowing of 90-99% of both MCA M1 segments, this was discussed with Stroke and no intervention recommended. He was transferred due to worsening renal insufficiency at that hospitalization. Continue atorvastatin, blood pressure control. Dual antiplatelet therapy until 3 months post. Hospital Course Date of Admission: Jul 13, 2022 at 13:10 Admission Diagnosis : Family Physician/Provider: Vinh Paulino MD Date of Discharge: 07/25/22 Discharge Diagnosis: See problem list Hospital Course: See problem list Labs and Pending Lab Test: Laboratory Tests 07/24/22 11:47: Glucometer 254H 07/24/22 16:25: Glucometer 287H 07/24/22 20:39: Glucometer 230H 07/25/22 04:54: Glucometer 203H 07/25/22 05:14: White Blood Count 13.8H, Red Blood Count 2.76L, Hemoglobin 7.7L, Hematocrit 24L, Mean Corpuscular Volume 87, Mean Corpuscular Hemoglobin 28, Mean Corpuscular Hemoglobin Concent 32, Red Cell Distribution Width 15.0H, Platelet Count 940H, Mean Platelet Volume 8.9L, Immature Granulocyte % (Auto) 0, Neutrophils (%) (Auto) 59, Lymphocytes (%) (Auto) 29, Monocytes (%) (Auto) 8, Eosinophils (%) (Auto) 3, Basophils (%) (Auto) 1, Neutrophils # (Auto) 8.2H, Lymphocytes # (Auto) 4.0, Monocytes # (Auto) 1.1H, Eosinophils # (Auto) 0.4H, Basophils # (Auto) 0.1, Immature Granulocyte # (Auto) 0.1, Sodium Level 136, Potassium Level 4.7, Chloride Level 102, Carbon Dioxide Level 23, Anion Gap 11, Blood Urea Nitrogen 41H, Creatinine 1.58H, Estimat Glomerular Filtration Rate 47, BUN/Creatinine Ratio 26, Glucose Level 204H, Calcium Level 9.6, Corrected Calcium 10.6H, Total Bilirubin 0.2, Aspartate Amino Transf (AST/SGOT) 32, Alanine Aminotransferase (ALT/SGPT) 26, Alkaline Phosphatase 185H, Total Protein 8.5H, Albumin 2.8L Microbiology 07/12/22 Gram Stain - Final, Complete 07/12/22 Wound Culture - Final, Complete Enterococcus faecalis Staphylococcus aureus Home Meds Active Hydralazine HCl 25 Mg Tablet 25 Mg PO Q8HR Amlodipine Besylate 10 Mg Tablet 10 Mg PO DAILY Senna S Tablet (Sennosides/Docusate Sodium) 8.6 Mg-50 Mg Tablet 2 Each PO BID PRN Novolog Flexpen (Insulin Aspart) 100 Unit/Ml (3 Ml) Solution 5 Units SQ TIDPC Welchol (Colesevelam HCl) 625 Mg Tablet 625 Mg PO TID PRN Omeprazole 20 Mg Capsule.dr 20 Mg PO HS Tresiba Flextouch U-200 (Insulin Degludec) 200 Unit/Ml (3 Ml) Insuln.pen 10 Unit SQ DAILY Hydrocodone-Acetamin 5-325 mg (Hydrocodone/Acetaminophen) 5 Mg-325 Mg Tablet 1 Tab PO Q8H PRN Venlafaxine HCl 75 Mg Tab 75 Mg PO DAILY Vitamin D3 (Cholecalciferol (Vitamin D3)) 1,250 Mcg (94847 Unit) Capsule 1,250 Mcg PO FRIDAYS Clopidogrel (Clopidogrel Bisulfate) 75 Mg Tablet 75 Mg PO DAILY Until 08/20/22 Atorvastatin Calcium 80 Mg Tablet 80 Mg PO HS Aspirin EC (Aspirin) 81 Mg Tablet.dr 81 Mg PO DAILY Proair Hfa (Albuterol Sulfate) 1 Puff Puff 2 Puff IH Q4H PRN Levothyroxine Sodium 125 Mcg Tablet 125 Mcg PO DAILY Praluent Pen (Alirocumab) 75 Mg/Ml Pen.injctr 75 Mg INJ EVERY 2 WEEKS Myrbetriq (Mirabegron) 50 Mg Tab.er.24h 50 Mg PO DAILY Assessment/Pt DC Instructions Follow up via physician at [facility]. Follow up with Surgery as directed. Discharge Diet: ADA Diet Activity as Tolerated: No (per Surgery r/t BKA) Discharge Physical Examination Allergies: Coded Allergies: choline fenofibrate (Verified Allergy, Unknown, 12/07/17) gemfibrozil (Verified Allergy, Unknown, 12/07/17) niacin (Verified Allergy, Unknown, 12/07/17) pioglitazone (Verified Allergy, Unknown, 12/07/17) General Appearance: No Apparent Distress Respiratory: Lungs Clear, Normal Breath Sounds Cardiovascular: Regular Rate, Rhythm, No Murmur Gastrointestinal: Normal Bowel Sounds, Non Tender, Soft Neurologic/Psychiatric: Alert, Other (speech difficult to understand) ERENDIRA SERRANO MD Jul 25, 2022 11:22
[2022-07-28] MEDS ORDERED: VITAMIN D3 125 MCG (5,000 UNITS) CAPSULE PO SCH (09:00)
== END 2022-07-25 11:10 | DRG 240 ==
LOC: EDUNIT# 20:00 → ER 20:02 → 4TH 23:20 → EDLOC 23:20 → INTOOBSV 23:20 → OBSVTOIN 07-13 13:10 → CSD 07-13 13:11 → 4TH 07-13 17:11
PROVIDERS: ADMIT Family Medicine; ATTEND Family Medicine
PROC: 047R3ZZ Dilation of Right Posterior Tibial Artery, Percutaneous Approach (ICD-10-PCS; 2022-07-13)
PROC: B41FYZZ Fluoroscopy of Right Lower Extremity Arteries using Other Contrast (ICD-10-PCS; 2022-07-13)
PROC: 0Y6H0Z3 Detachment at Right Lower Leg, Low, Open Approach (ICD-10-PCS; principal; 2022-07-14 16:16)
DX: E11.52 Type 2 diabetes mellitus with diabetic peripheral angiopathy with gangrene (principal); E46 Unspecified protein-calorie malnutrition; D62 Acute posthemorrhagic anemia; D75.839 Thrombocytosis, unspecified; J44.9 Chronic obstructive pulmonary disease, unspecified; Z66 Do not resuscitate; E78.00 Pure hypercholesterolemia, unspecified; I25.2 Old myocardial infarction; E11.40 Type 2 diabetes mellitus with diabetic neuropathy, unspecified; G20 Parkinson's disease; F02.80 Dementia in other diseases classified elsewhere, unspecified severity, without behavioral disturbance, psychotic disturbance, mood disturbance, and anxiety; K58.9 Irritable bowel syndrome, unspecified; M19.90 Unspecified osteoarthritis, unspecified site; G89.29 Other chronic pain; M54.9 Dorsalgia, unspecified; F41.9 Anxiety disorder, unspecified; F32.A Depression, unspecified; K21.00 Gastro-esophageal reflux disease with esophagitis, without bleeding; N32.81 Overactive bladder; K59.00 Constipation, unspecified; Z86.73 Personal history of transient ischemic attack (TIA), and cerebral infarction without residual deficits; N18.30 Chronic kidney disease, stage 3 unspecified; I12.9 Hypertensive chronic kidney disease with stage 1 through stage 4 chronic kidney disease, or unspecified chronic kidney disease; E11.22 Type 2 diabetes mellitus with diabetic chronic kidney disease; E55.9 Vitamin D deficiency, unspecified; R26.89 Other abnormalities of gait and mobility; Z87.891 Personal history of nicotine dependence; E03.9 Hypothyroidism, unspecified; E87.5 Hyperkalemia; E11.43 Type 2 diabetes mellitus with diabetic autonomic (poly)neuropathy; K31.84 Gastroparesis; Z79.4 Long term (current) use of insulin; E11.65 Type 2 diabetes mellitus with hyperglycemia; R41.0 Disorientation, unspecified; Z68.27 Body mass index [BMI] 27.0-27.9, adult; Z79.82 Long term (current) use of aspirin; Z79.899 Other long term (current) drug therapy
CPT/HCPCS: 36248; 36415; 51702; 74176; 80048; 80053; 81000; 82947; 83036; 85007; 85014; 85018; 85025; 85027; 85610; 85730; 86850; 86900; 86901; 86920; 87070; 87077; 87186; 87205; 93926; 94760; G0378

== ENCOUNTER 2022-10-18 13:00 | Day surgery (SDC) | payer MEDICARE ==
[~2022-10-18] VITALS: Ht 175 cm; Wt 90.0 kg
[2022-10-18] VITALS (13 sets, daily range): BP systolic 92–158; BP diastolic 56–88
[2022-10-18 11:11] LABS: HEMATOCRIT 32 % (40-54); HEMOGLOBIN 10.2 g/dL (13.3-17.7); MEAN CORPUSCULAR HEMOGLOBIN 29 pg (25-34); MEAN CORPUSCULAR HGB CONC 32 g/dL (32-36); MEAN CORPUSCULAR VOLUME 90 fL (80-99); MEAN PLATELET VOLUME 8.7 fL (9.0-12.2); PLATELET COUNT 579 10^3/uL (130-400); WHITE BLOOD COUNT 11.5 10^3/uL (4.3-11.0)
[2022-10-18] MEDS: NS IV 1000 ML 1,000 ML IV SCH ×3 (11:18→16:15)
[2022-10-18 11:28] LABS: ALBUMIN 3.6 GM/DL (3.2-4.5); POTASSIUM 4.6 MMOL/L (3.6-5.0)
[2022-10-18 11:29] LABS: CALCIUM 9.9 MG/DL (8.5-10.1)
[2022-10-18 11:31] LABS: TOTAL PROTEIN 9.4 GM/DL (6.4-8.2)
[2022-10-18 11:32] LABS: BILIRUBIN,TOTAL 0.2 MG/DL (0.1-1.0)
[2022-10-18 11:33] LABS: PROTHROMBIN TIME PATIENT 13.5 SEC (12.2-14.7)
[2022-10-18 11:34] LABS: CREATININE SERUM 1.74 MG/DL (0.60-1.30)
--- NOTE | 2022-10-18 12:02 | Diagnostic Imaging Report ---
HISTORY: Atrial fibrillation TECHNIQUE: Frontal view of the chest COMPARISON: 07/05/2022 FINDINGS: Lung volumes are low. There are bibasilar airspace opacities, left greater than right. There is no pleural effusion or pneumothorax. The cardiac silhouette is normal in size. IMPRESSION:. Bibasilar airspace opacities, left greater than right, may represent atelectasis or infiltrate. Dictated by: Dictated on workstation # [id number]
[~2022-10-18 13:00] MED LIST changes: +ALBU8.5H6 IH; +AMLO-251 PO; +COLE625T30 PO; -COLE625T9 PO; +EMPA25TA PO; +HEParin (CATH LAB) 2,000 ML IV ONE; +HYDR-3923 PO; +INSU200I4 SQ; +LIDOCAINE 1% INJ 30 ML (XYLOCAINE) VIAL ONE; +METO-310 PO; +NS IV 1000 ML 1,000 ML ONE; -RT-ALBUINH IH; +SENN-145 PO; +[UNRECOGNIZED DRUG - OTHER] SQ
--- NOTE | 2022-10-18 13:46 | Cardiac Procedure Note-CS/ASA ---
Pre-Procedure Note Pre-Op Procedure Note Date of Available H&P: Oct 12, 2022 Date H&P Reviewed: Oct 18, 2022 Time H&P Reviewed: 13:00 History & Physical: H&P Reviewed, Patient Examed, No changes noted Pre-Operative Diagnosis: Ischemic changes to right foot Conscious Sedation Pre-Proced Time 13:45 ASA Score 3 For ASA 3 and 4: Consider anesthesia and medical clearance. Also, for patients with a history of failed moderate sedation consider anesthesia. Airway Lungs Heart ASA score ASA 1: a normal healthy patient ASA 2: a patient with a mild systemic disease (mid diabetes, controlled hypertension, obesity ASA 3: a patient with a severe systemic disease that limits activity (angina, COPD, prior Myocardial infarction) ASA 4: a patient with an incapacitating disease that is a constant threat to life (CHF, renal failure) ASA 5: a moribund patient not expected to survive 24 hrs. (ruptured aneurysm) ASA 6: a declared brain- patient whose organs are being harvested. For emergent operations, add the letter E after the classification Mallampati Classification Grade 3 Sedation Plan Analgesia, Amnesia, Plan communicated to team members, Discussed options with patient/fam, Discussed risks with patient/fam The patient is an appropriate candidate to undergo the planned procedure, sedation, and anesthesia. The patient immediately re-assessed prior to indication. BRITTANY CARRERO MD Oct 18, 2022 13:46
[2022-10-18] MEDS ORDERED: fentaNYL INJ 100 MCG/2 ML AMP ONE (13:57)
[2022-10-18] MEDS ORDERED: MIDAZOLAM 5 MG/5 ML (VERSED) VIAL ONE (13:57)
[2022-10-18] MEDS ORDERED: HEParin 1000 UNIT/ML (10ML VIAL) FOR BOLUS ONE (14:23)
[2022-10-18] MEDS ORDERED: NITRO DRIP 25000 MCG/D5W 250 ML IV ONE (14:43)
[2022-10-18] MEDS ORDERED: NS IV 1000 ML 1,000 ML ONE (15:07)
[2022-10-18] MEDS ORDERED: VERAPAMIL 5 MG/2 ML (CALAN) VIAL IV ONE (15:07)
[2022-10-18] MEDS ORDERED: ASPIRIN 325 MG (5 GR) TABLET ONE (15:50)
[2022-10-18] MEDS ORDERED: CLOPIDOGREL 300 MG (PLAVIX) TABLET PO ONE (15:50)
[2022-10-18] MEDS ORDERED: RT-ALBUTEROL SULF 2.5 MG/3 ML PRE-MIX VIAL IH PRN (16:15)
[2022-10-18] MEDS ORDERED: HYDROcodone/APAP 5 MG/325 MG (LORTAB) TAB PO PRN (16:15)
[2022-10-18] MEDS ORDERED: PATIENT MAY USE OWN MEDS, ALL PO SCH (16:15)
[2022-10-18] MEDS ORDERED: NON-FORMULARY MEDICATION 1 EA EA (Alirocumab (Praluent Pen) 75 MG) INJ SCH (16:15)
[2022-10-18] MEDS ORDERED: COLESEVELAM HCL 625 MG PO PRN (16:15)
--- NOTE | 2022-10-18 16:19 | Peripheral Report ---
Peripheral Report Physician (s)/Leaf Conditioner Helper (s) Physician BRITTANY CARRERO MD Pre-Procedure Diagnosis Pre-Procedure Diagnosis: Ischemic changes to right foot Post-Procedure Note Procedure Start Date: Oct 18, 2022 Name of Procedure: Bilateral lower extremity runoff HEMMING AND TACKING MACHINE OPERATOR to the left posterior tibial artery Atherectomy and HEMMING AND TACKING MACHINE OPERATOR to the left anterior tibial artery HEMMING AND TACKING MACHINE OPERATOR to the tibioperoneal trunk Findings/Procedure Note PROCEDURE NOTE: 72-year-old gentleman with extensive peripheral arterial disease, had right BKA, had nonhealing ulcer on the left foot, abnormal KRYSTINA and scheduled for peripheral angiogram After explaining the procedure to the patient, all pros and cons were explained, all questions were answered. The patient signed the consent and then he was placed on the cardiac catheterization laboratory. The patient was placed on the cardiac catheterization laboratory. Groin was prepped SL fashion local anesthesia was used. Sheath placed in the right femoral artery, rim catheter was used for runoff to the left leg then I advanced a Glidewire and a straight catheter down to the trifurcation and did DSA imaging at the level of the trifurcation then the level of the foot. Patient has total occlusion of the left posterior tibial artery and severe stenosis at multiple segment of the anterior tibial artery. 5000 units of heparin were given Long 6 Seneg[place] sheath was used Command 14 wire was used and advanced in the posterior tibial artery and then I did balloon angioplasty using 2.5 x 200 mm [place] balloon with multiple inflation then I did balloon angioplasty using [place] 4 x 60 to the tibiop eroneal trunk then I advanced the wire to the anterior tibial artery and advanced the balloon to the distal anterior tibial artery and exchanged the wire and proceeded with diamondback atherectomy to the 3 lesions in the proximal mid and distal anterior tibial artery then did balloon angioplasty, angiogram post intervention showed excellent results. Sheath was exchanged and I used short 6 [place] sheath placed in the right femoral artery and did runoff to the right leg then deployed closure device Preintervention Posterior tibial artery total occlusion, post intervention 0 residual stenosis with MONICA-3 flow Anterior tibial artery Proximal 80% stenosis, postintervention 0% stenosis Mid 95% stenosis, post intervention 20% stenosis Distal 90% stenosis, post intervention 20% stenosis Post intervention MONICA flow is 3 FINDINGS: Right lower extremity, right BKA, mild to moderate disease in the right SFA and right common iliac, nonobstructive disease Left lower extremity, Left common iliac, common femoral has mild disease nonobstructive disease Left SFA, heavily calcified with multiple area of 40 to 50% stenosis nonobstructive disease Left anterior tibial, 3 area of severe stenosis in the proximal and mid and distal successful atherectomy then balloon angioplasty with excellent results Left posterior tibial, total occlusion, successful balloon angioplasty with excellent result and good flow down to the foot Left peroneal artery has slow flow with no obstructive disease, small vessel disease CONCLUSIONS: 1. Successful atherectomy and balloon angioplasty to the anterior tibial artery on the left side with excellent results 2. Successful balloon angioplasty to the chronically occluded posterior tibial artery with excellent results 3. Heavily calcified SFA on the left side with moderate stenosis at multiple segment, will continue to monitor closely DISCUSSION AND RECOMMENDATIONS: Continue with maximizing medical therapy Anesthesia Type: Conscious Sedation Estimated blood loss (mL): 25 ml Contrast Amount: 33 ml Total Radiation Dose: 146 mGy Post-Procedure Diagnosis Post-operative diagnosis: Critical limb ischemia Ischemic foot ulcer Peripheral arterial disease Hypertension BRITTANY CARRERO MD Oct 18, 2022 16:19
[2022-10-18] MEDS: inSUlin ASPART (NovoLOG) 1 UNIT/0.01 ML (CHARGE PER UNIT) SC SCH (18:46)
[2022-10-18] MEDS ORDERED: NON-FORMULARY MEDICATION 1 EA EA (Insulin Aspart (Novolog Flexpen) 18 UNITS) SQ SCH (19:00)
[2022-10-18] MEDS ORDERED: OMEPRAZOLE 20 MG (PriLOSEC) CAP NON-FORMULARY PO SCH (21:00)
[2022-10-18] MEDS ORDERED: PANTOPRAZOLE 20 MG TABLET (PROTONIX) PO SCH (21:00)
[2022-10-18] MEDS: hydrALAZINE (APRESOLINE) 25 MG TAB PO SCH (21:52)
[2022-10-19] VITALS (11 sets, daily range): BP systolic 20–130; BP diastolic 51–93
[2022-10-19] MEDS ORDERED: LEVOTHYROXINE 125 MCG (LEVOTHROID) TABLET PO SCH (06:30)
[2022-10-19] MEDS: hydrALAZINE (APRESOLINE) 25 MG TAB PO SCH (06:32)
--- NOTE | 2022-10-19 06:33 | Discharge Inst-Post CATH ---
Discharge Inst-CATH/EP Problems Reviewed?: Yes Post Cardiac Cath/EP D/C Inst Follow Up/Plan Appointment with Dr Fu in 2 weeks <b>CARDIAC CATH/EP PROCEDURE DISCHARGE INSTRUCTIONS</b> ACTIVITY * Go Home directly and rest. * Limit activity of the leg (or wrist if it was used) for 7 days including aerobics, swimming, jogging, bicycling, etc. * Restrict stair-climbing for 7 days if possible, if not, climb up with your non-cath leg, then bring together on the same step. * Avoid lifting, pushing, pulling or excessive movement of the affected extremity for 7 days. * Customary sexual activity may be resumed after 2 days-use caution not to use a position that strains or causes pain to the affected extremity. * No driving for 24 hours. * NO SMOKING. * Avoid straining for bowel movements for 7 days. * Gentle walking on level ground is allowed. * Returning to work will depend on the type of procedure and the results. Your doctor will discuss this with you. CALL YOUR DOCTOR FOR ANY OF THE FOLLOWING: *If bleeding from the puncture site occurs- Apply gentle pressure to site with clean cloth and call your doctor or EMS. * If a knot or lump forms under the skin, increases in size, or causes pain. * If bruising appears to be worsening or moving further down your leg instead of disappearing. * Temperature above 101 F. CARE OF YOUR GROIN INCISION; * Bruising or purple discoloration of the skin near the puncture site is common. * You may shower only, no bathtub bathing for 5 days. Be careful to avoid slipping as your leg may feel stiff. * If a closure device was used on your femoral artery, please see the attached guide regarding care of the device and your leg. * Leave dressing on FOR 24 hours. CARE OF YOUR WRIST INCISION; * Bruising or purple discoloration of the skin near the puncture site is common. * You may shower. * DO NOT submerge wrist. * Leave dressing on FOR 24 hours. BRITTANY FU MD Oct 19, 2022 06:33
[2022-10-19] MEDS: NS IV 1000 ML 1,000 ML IV SCH ×3 (07:00→12:00)
[2022-10-19] MEDS: inSUlin ASPART (NovoLOG) 1 UNIT/0.01 ML (CHARGE PER UNIT) SC SCH ×2 (07:43→13:42)
[2022-10-19] MEDS ORDERED: MIRABEGRON 25 MG TAB (MYRBETRIQ) PO SCH (08:00)
--- NOTE | 2022-10-19 08:30 | Cardiology Progress Note ---
Subjective Date Seen by Provider: Oct 19, 2022 Time Seen by Provider: 08:28 Subjective/Events-last exam Patient was seen at bedside, feeling better. No new complaint. Review of Systems General: No Chills, No Night Sweats; Fatigue; No Malaise, No Appetite, No Other HEENT: No Head Aches, No Visual Changes, No Eye Pain, No Ear Pain, No Dysphasia, No Sinus Congestion, No Post Nasal Drip, No Sore Throat, No Other Pulmonary: No Dyspnea, No Cough, No Pleuritic Chest Pain, No Other Cardiovascular: No: Chest Pain, Palpitations, Orthopnea, Paroxysmal Noc. Dyspnea, Edema, Lt Headedness, Other Objective-Cardiology Exam Last Set of Vital Signs Vital Signs 10/18/22 10/19/22 10/19/22 16:39 03:00 06:00 Temp 36.4 Pulse 89 Resp 20 B/P (MAP) 20/92 (68) Pulse Ox 92 O2 Delivery Room Air O2 Flow Rate 2.00 General: Alert, Oriented X3, Cooperative HEENT: Atraumatic, PERRLA Neck: Supple, No JVD, No Thyromegaly Lungs: Clear to Auscultation, Normal Air Movement Heart: Regular Rate, Normal S1, Normal S2, No Murmurs Abdomen: Normal Bowel Sounds, Soft, No Tenderness, No Hepatosplenomegaly, No Masses Extremities: No Clubbing, No Cyanosis, No Edema, Normal Pulses, No Tenderness/Swelling, Other (Pulses palpable on the dorsalis pedis and posterior tibial on the left. Patient has right BKA) Skin: No Rashes, No Significant Lesion Neuro: Normal Speech, Normal Tone, Sensation Intact Psych/Mental Status: Mental Status NL, Mood NL Results Lab Laboratory Tests 10/18/22 11:04 A/P-Cardiology Admission Diagnosis Peripheral arterial disease Nonhealing foot ulcer Critical limb ischemia Hypertension Hyperlipidemia COPD Assessment/Plan Peripheral arterial disease, right BKA Left critical limb ischemia Nonhealing wound on the left first toe, status post complex intervention to the anterior and posterior tibial arteries on the left with excellent results. Good palpable pulse Continue on aspirin and Plavix Hypertension, continue current medication monitor blood pressure Hyperlipidemia, monitor lipids COPD BRITTANY CARRERO MD Oct 19, 2022 08:30
[2022-10-19] MEDS ORDERED: amLODIPine 10 MG (NORVASC) TAB PO SCH (09:00)
[2022-10-19] MEDS ORDERED: ASPIRIN E.C. 81 MG (ECOTRIN) TAB PO SCH ×2 (09:00)
[2022-10-19] MEDS ORDERED: INSULIN DEGLUDEC 10 UNIT SQ SCH (09:00)
[2022-10-19] MEDS ORDERED: NON-FORMULARY MEDICATION 1 EA EA (Mirabegron (Myrbetriq) 50 MG) PO SCH (09:00)
[2022-10-19] MEDS ORDERED: CLOPIDOGREL 75 MG (PLAVIX) TABLET PO SCH ×2 (09:00)
[2022-10-19] MEDS ORDERED: NON-FORMULARY MEDICATION 1 EA EA (Empagliflozin (Jardiance) 25 MG) PO SCH (09:00)
[2022-10-19] MEDS ORDERED: EMPAGLIFLOZIN 10 MG TABLET (JARDIANCE) PO SCH (09:00)
== END 2022-10-19 13:43 ==
LOC: CATH 13:00 → ICU 15:08 → CATH 10-19 13:43
PROVIDERS: ATTEND Internal Medicine Cardiovascular Disease
DX: I70.245 Atherosclerosis of native arteries of left leg with ulceration of other part of foot (principal); I70.235 Atherosclerosis of native arteries of right leg with ulceration of other part of foot; I10 Essential (primary) hypertension; I70.92 Chronic total occlusion of artery of the extremities; J44.9 Chronic obstructive pulmonary disease, unspecified; L97.529 Non-pressure chronic ulcer of other part of left foot with unspecified severity; L97.519 Non-pressure chronic ulcer of other part of right foot with unspecified severity; E78.5 Hyperlipidemia, unspecified; Z79.02 Long term (current) use of antithrombotics/antiplatelets; Z79.82 Long term (current) use of aspirin; Z87.891 Personal history of nicotine dependence; Z28.310 Unvaccinated for COVID-19; Z68.29 Body mass index [BMI] 29.0-29.9, adult; Z79.899 Other long term (current) drug therapy
CPT/HCPCS: 36247; 36248; 37228; 37232; 71045; 75716; 80053; 80061; 82947 ×2; 85027; 85610; 85730; 87081; C1724; C1725 ×3; C1760; C1769 ×4; C1887; C1894 ×2; 36415

== ENCOUNTER → 2022-11-23 | Outpatient (CLI) | payer MEDICARE ==
[~2022-11-23] MED LIST changes: -HEParin (CATH LAB) 2,000 ML IV ONE; -LIDOCAINE 1% INJ 30 ML (XYLOCAINE) VIAL ONE; -NS IV 1000 ML 1,000 ML ONE
--- NOTE | 2022-11-23 16:47 | Diagnostic Imaging Report ---
EXAMINATION: Chest 2 view HISTORY: Chronic obstructive lung disease. COMPARISON: 10/18/2022 FINDINGS: The lungs are clear without edema or pneumonia. No pleural effusion or pneumothorax. Heart size is normal. IMPRESSION: 1. Clear lungs. Dictated by: Dictated on workstation # [id number]
== END ==
LOC: RAD 15:46
PROVIDERS: ATTEND Internal Medicine Cardiovascular Disease
DX: J44.9 Chronic obstructive pulmonary disease, unspecified (principal)
CPT/HCPCS: 71046

== ENCOUNTER 2022-12-18 16:46 | Emergency (ER) | payer MEDICARE ==
--- NOTE | 2022-12-18 16:57 | ED General ---
General Chief Complaint: General Problems/Pain Stated Complaint: LOW HEMOGLOBIN Source of Information: EMS, Family (spouse), [facility] Records History of Present Illness Date Seen by Provider: Dec 18, 2022 Time Seen by Provider: 16:50 Initial Comments Patient is a 72-year-old male who presents to the emergency department via EMS from his [facility] for evaluation of anemia. Patient's hemoglobin was 5.0 per labs drawn earlier today. Patient has had gross hematuria per EMS. The symptoms have been present for approximately 1 week. Patient is normally on Plavix but this has been held for the last "several days". Patient denies any pain or discomfort at this time. No recent fevers per EMS. No other recent bleeding outside of the bloody urine. Patient states he has had some generalized weakness as well as some shortness of air. Allergies and Home Medications Allergies Coded Allergies: choline fenofibrate (Verified Allergy, Unknown, 12/07/17) gemfibrozil (Verified Allergy, Unknown, 12/07/17) niacin (Verified Allergy, Unknown, 12/07/17) pioglitazone (Verified Allergy, Unknown, 12/07/17) Patient Home Medication List Home Medication List Reviewed: Yes Albuterol Sulfate (Ventolin Hfa) 1 Puff Puff, 2 PUFF IH Q4H PRN for SHORTNESS OF BREATH Prescribed by: ERENDIRA SERRANO on 07/25/221115 Alirocumab (Praluent Pen) 75 Mg/Ml Pen.injctr, 75 MG INJ EVERY 2 WEEKS Prescribed by: ERENDIRA SERRANO on 07/25/221115 Amlodipine Besylate (Amlodipine Besylate) 10 Mg Tablet, 10 MG PO DAILY Prescribed by: ERENDIRA SERRANO on 07/25/22 111 Aspirin (Aspirin EC) 81 Mg Tablet.dr, 81 MG PO DAILY Prescribed by: ERENDIRA SERRANO on 07/25/221115 Atorvastatin Calcium (Atorvastatin Calcium) 80 Mg Tablet, 80 MG PO HS Prescribed by: ERENDIRA SERRANO on 07/25/221115 Cholecalciferol (Vitamin D3) (Vitamin D3) 1,250 Mcg (55035 Unit) Capsule, 1,250 MCG PO FRIDAYS Prescribed by: ERENDIRA SERRANO on 07/25/221115 Clopidogrel Bisulfate (Clopidogrel) 75 Mg Tablet, 75 MG PO DAILY Prescribed by: ERENDIRA SERRANO on 07/25/221115 Colesevelam HCl (Welchol) 625 Mg Tablet, 625 MG PO TID PRN for DIARRHEA Prescribed by: ERENDIRA SERRANO on 07/25/221115 Empagliflozin (Jardiance) 25 Mg Tablet, 25 MG PO DAILY, (Reported) Entered as Reported by: Chapis Jenkins on 10/18/22 114 Hydralazine HCl (Hydralazine HCl) 25 Mg Tablet, 25 MG PO Q8HR Prescribed by: ERENDIRA SERRANO on 07/25/221115 Hydrocodone/Acetaminophen (Hydrocodone-Acetamin 5-325 mg) 5 Mg-325 Mg Tablet, 1 TAB PO Q8H PRN for PAIN-MODERATE (5-7) Prescribed by: ERENDIRA SERRANO on 07/25/221116 Insulin Aspart (Novolog Flexpen) 100 Unit/Ml (3 Ml) Solution, 18 UNITS SQ TIDPC Prescribed by: Chapis Jenkins on 10/18/221141 Insulin Degludec (Tresiba Flextouch U-200) 200 Unit/Ml (3 Ml) Insuln.pen, 10 UNIT SQ DAILY Prescribed by: ERENDIRA SERRANO on 07/25/221115 Levothyroxine Sodium (Levothyroxine Sodium) 125 Mcg Tablet, 125 MCG PO DAILY Prescribed by: ERENDIRA SERRANO on 07/25/221115 Mirabegron (Myrbetriq) 50 Mg Tab.er.24h, 50 MG PO DAILY Prescribed by: ERENDIRA SERRANO on 07/25/221115 Omeprazole (Omeprazole) 20 Mg Capsule.dr, 20 MG PO HS Prescribed by: ERENDIRA SERRANO on 07/25/221115 Sennosides/Docusate Sodium (Senna S Tablet) 8.6 Mg-50 Mg Tablet, 2 EACH PO BID PRN for CONSTIPATION-6TH LINE Prescribed by: ERENDIRA SERRANO on 07/25/221115 Venlafaxine HCl (Venlafaxine HCl) 75 Mg Tab, 75 MG PO DAILY Prescribed by: ERENDIRA SERRANO on 07/25/22 111 [allrocumab] , 75 MG SQ DAILY, (Reported) Entered as Reported by: Chapis Jenkins on 10/18/22 1142 Review of Systems Review of Systems Constitutional: see HPI, weakness EENTM: no symptoms reported Respiratory: see HPI, short of breath Cardiovascular: no symptoms reported Gastrointestinal: no symptoms reported Genitourinary: no symptoms reported Musculoskeletal: no symptoms reported Skin: no symptoms reported Psychiatric/Neurological: No Symptoms Reported Hematologic/Lymphatic: No Symptoms Reported Immunological/Allergic: no symptoms reported Past Xaqfymu-Ufwwpu-Xxxufi Hx Patient Social History Tobacco Use?: No Substance use?: No Alcohol Use?: No Pt feels they are or have been: No Immunizations Up To Date Tetanus Booster (TDap): More than 5yrs PED Vaccines UTD: No First/Initial COVID19 Vaccinat: NO Second COVID19 Vaccination Ben: NO Third COVID19 Vaccination Date: NO Seasonal Allergies Seasonal Allergies: Yes Past Medical History Surgery/Hospitalization HX: HTN, SD. 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 Hearing Impairment: Denies Cancer: No Psychosocial: Yes Anxiety, Depression Integumentary: No Blood Disorders: No Adverse Reaction/Blood Tranf: No (N/A) Family Medical History Alcoholism G8 BROTHER G8 BROTHER Alzheimer's disease 19 MOTHER Arthritis 19 FATHER 19 MOTHER Asthma 19 FATHER Cataracts 19 FATHER 19 MOTHER G8 BROTHER G8 BROTHER G8 SISTER G8 SISTER G8 SISTER Completed stroke 19 FATHER G8 SISTER Deafness or hearing loss G8 BROTHER Diabetes mellitus 19 FATHER 19 MOTHER G8 BROTHER G8 BROTHER G8 BROTHER G8 SISTER G8 SISTER G8 SISTER Hypertension 19 FATHER 19 MOTHER G8 BROTHER G8 BROTHER G8 BROTHER G8 BROTHER G8 SISTER G8 SISTER G8 SISTER G8 SISTER G8 SISTER G8 SISTER G8 SISTER Respiratory disorder G8 BROTHER No Family History of: AIDS Abdominal aortic aneurysm Britton's disease Aphasia Cancer of mouth Cardiovascular disease Colon cancer Congenital disease Congenital heart disease Coronary thrombosis Cystic fibrosis Dementia Drug abuse Dysphasia Fibrocystic disease of breast Gastroenteritis Glaucoma Headache disorder Hypercholesterolemia Infertility Kidney disease Myocardial infarction Neoplasm Not obtainable due to adoption Osteoporosis Parkinson's disease Prostate cancer Psychosocial problem Seizure disorder Severe allergy Thyroid disease Tuberculosis Visual disorder No Pertinent Family Hx Physical Exam Vital Signs Vital Signs - First Documented 12/18/22 16:50 Temp 36.9 Pulse 88 Resp 16 Capillary Refill : Height, Weight, BMI Height: 5'10.00" Weight: 161lbs. 4.0oz. 73.114240uf; 29.38 BMI Method:Stated General Appearance: No Apparent Distress, WD/WN HEENT: PERRL/EOMI, TMs Normal, Normal ENT Inspection, Pharynx Normal Neck: Full Range of Motion, Normal Inspection, Non Tender, Supple Respiratory: Chest Non Tender, Lungs Clear, Normal Breath Sounds, No Accessory Muscle Use, No Respiratory Distress Cardiovascular: Regular Rate, Rhythm, Normal Peripheral Pulses Gastrointestinal: Non Tender, Soft Neurologic/Psychiatric: Alert, Oriented x3, No Motor/Sensory Deficits, Normal Mood/Affect Skin: Normal Color, Warm/Dry Progress/Results/Core Measures Suspected Sepsis SIRS Temperature: Pulse: Respiratory Rate: Laboratory Tests 12/18/22 16:54: White Blood Count 14.8H Blood Pressure / Mean: Laboratory Tests 12/18/22 16:54: Creatinine 2.83H, INR Comment 1.1, Platelet Count 673H, Total Bilirubin 0.1 Results/Orders Lab Results Laboratory Tests Test 12/18/22 16:54 12/18/22 17:50 Range/Units White Blood Count 14.8 H 4.3-11.0 10^3/uL Red Blood Count 1.77 L 4.30-5.52 10^6/uL Hemoglobin 5.0 *L 13.3-17.7 g/dL Hematocrit 16 *L 40-54 % Mean Corpuscular Volume 92 80-99 fL Mean Corpuscular Hemoglobin 28 25-34 pg Mean Corpuscular Hemoglobin Concent 31 L 32-36 g/dL Red Cell Distribution Width 15.9 H 10.0-14.5 % Platelet Count 673 H 130-400 10^3/uL Mean Platelet Volume 8.6 L 9.0-12.2 fL Immature Granulocyte % (Auto) 1 % Neutrophils (%) (Auto) 59 42-75 % Lymphocytes (%) (Auto) 32 12-44 % Monocytes (%) (Auto) 7 0-12 % Eosinophils (%) (Auto) 1 0-10 % Basophils (%) (Auto) 0 0-10 % Neutrophils # (Auto) 8.8 H 1.8-7.8 10^3/uL Lymphocytes # (Auto) 4.8 H 1.0-4.0 10^3/uL Monocytes # (Auto) 1.0 0.0-1.0 10^3/uL Eosinophils # (Auto) 0.2 0.0-0.3 10^3/uL Basophils # (Auto) 0.1 0.0-0.1 10^3/uL Immature Granulocyte # (Auto) 0.1 0.0-0.1 10^3/uL Neutrophils % (Manual) 62 % Lymphocytes % (Manual) 34 % Monocytes % (Manual) 4 % Hypochromasia MODERATE Anisocytosis SLIGHT Microcytosis MARKED Prothrombin Time 14.2 12.2-14.7 SEC INR Comment 1.1 0.8-1.4 Activated Partial Thromboplast Time 32 24-35 SEC Sodium Level 133 L 135-145 MMOL/L Potassium Level 5.4 H 3.6-5.0 MMOL/L Chloride Level 99 98-107 MMOL/L Carbon Dioxide Level 23 21-32 MMOL/L Anion Gap 11 5-14 MMOL/L Blood Urea Nitrogen 39 H 7-18 MG/DL Creatinine 2.83 H 0.60-1.30 MG/DL Estimat Glomerular Filtration Rate 23 BUN/Creatinine Ratio 14 Glucose Level 113 H 70-105 MG/DL Calcium Level 9.0 8.5-10.1 MG/DL Corrected Calcium 9.5 8.5-10.1 MG/DL Total Bilirubin 0.1 0.1-1.0 MG/DL Aspartate Amino Transf (AST/SGOT) 20 5-34 U/L Alanine Aminotransferase (ALT/SGPT) 24 0-55 U/L Alkaline Phosphatase 152 H 40-136 U/L Total Protein 7.9 6.4-8.2 GM/DL Albumin 3.4 3.2-4.5 GM/DL Urine Color RED H Urine Clarity BLOODY H Urine pH 5.0 5-9 Urine Specific [place] 1.025 H 1.016-1.022 Urine Protein 3+ H NEGATIVE Urine Glucose (UA) 3+ H NEGATIVE Urine Ketones 3+ H NEGATIVE Urine Nitrite POSITIVE H NEGATIVE Urine Bilirubin 3+ H NEGATIVE Urine Urobilinogen 4 H < = 1.0 MG/DL Urine Leukocyte Esterase 3+ H NEGATIVE Urine RBC (Auto) 3+ H NEGATIVE Urine RBC TNTC H /HPF Urine WBC TNTC H /HPF Urine Squamous Epithelial Cells NONE /HPF Urine Crystals NONE /LPF Urine Bacteria LARGE H /HPF Urine Casts NONE /LPF Urine Mucus NEGATIVE /LPF Urine Culture Indicated YES My Orders Orders - SHELBY LAWS APRN Cbc With Automated Diff (12/18/22 16:56) Comprehensive Metabolic Panel (12/18/22 16:56) Urinalysis (12/18/22 16:56) Iv/Invasive Line Insertion .IV INSERT (12/18/22 16:56) Type And Screen (12/18/22 16:56) Protime With Inr (12/18/22 16:56) Partial Thromboplastin Time (12/18/22 16:56) Manual Differential (12/18/22 16:54) Urine Culture (12/18/22 17:50) Ceftriaxone 1 Gm Pre-Mix (Rocephin 1 Gm (12/18/22 18:15) Vital Signs: Special (Order) (12/18/22 18:26) Consent-Obtain Consent For (12/18/22 18:26) Monitor S/S Transfusion Reacti (12/18/22 18:26) Ns Iv 500 Ml (Sodium Chloride 0.9%) (12/18/22 18:30) Red Cells Leukocytes Reduced (12/18/22 18:26) Medications Given in ED Current Medications Medications Dose Ordered Sig/Jing Route Start Time Stop Time Status Last Admin Dose Admin Ceftriaxone Sodium/Dextrose 50 ml @ 100 mls/hr ONCE ONCE IV 12/18/22 18:15 12/18/22 18:44 DC 12/18/22 18:34 100 MLS/HR Vital Signs/I&O 12/18/22 16:50 Temp 36.9 Pulse 88 Resp 16 B/P (MAP) Capillary Refill : Progress Note : Progress Note Patient is nontoxic and well-hydrated on exam. There is some pallor noted on exam. Vital signs are overall reassuring. Denies any abdominal tenderness to palpation on exam. Orders placed for CBC, CMP, urinalysis, type and screen, coagulation studies, and IV insertion. CBC notable for anemia with a hemoglobin of 5.0. Thrombocytosis also noted. CMP notable for mild hyperkalemia as well as elevated BUN and creatinine above patient's baseline. Patient studies are unremarkable. Urinalysis notable for marked hematuria, marked pyuria, and bacteriuria. Patient was given a dose of I V Rocephin. 2 units of packed red blood cells ordered for infusion once the type and screen results. I spoke with hospital medicine here who states patient would need to be transferred to a facility with urology coverage. I spoke with the emergency medicine physician at [facility] who kindly agreed to accept the patient in transfer. They did not have any other specific recommendations in the interim. They agreed with the transfusion of 2 units of PRBCs. Family updated on plan of care and understanding verbalized. Departure Impression Primary Impression: Symptomatic anemia Additional Impressions: Hematuria Qualified Codes: R31.9 - Hematuria, unspecified UTI (urinary tract infection) Qualified Codes: N39.0 - Urinary tract infection, site not specified; R31.9 - Hematuria, unspecified Disposition: 02 XFER SHT-TRM HOSP Condition: Stable Transfer Transfer Reason: Exceeds level of care Time Spoke to Accepting Phy: 18:[address] Meza accepting ED physician, is glad to see in the ED, agrees with 2 units PRBC while transfer pending Transfer Facility: [facility] Method of Transfer: EMS Departure-Patient Inst. Referrals: REINALDO HASSAN MD (PCP/Family) Primary Care Physician SHELBY LAWS APRN Dec 18, 2022 16:57
[2022-12-18 17:05] LABS: BASOPHILS # (AUTO) 0.1 10^3/uL (0.0-0.1); BASOPHILS % (AUTO) 0 % (0-10); EOSINOPHILS # (AUTO) 0.2 10^3/uL (0.0-0.3); EOSINOPHILS % (AUTO) 1 % (0-10); LYMPHOCYTES # (AUTO) 4.8 10^3/uL (1.0-4.0); LYMPHOCYTES % (AUTO) 32 % (12-44); MEAN CORPUSCULAR HEMOGLOBIN 28 pg (25-34); MEAN CORPUSCULAR HGB CONC 31 g/dL (32-36); MEAN CORPUSCULAR VOLUME 92 fL (80-99); MEAN PLATELET VOLUME 8.6 fL (9.0-12.2); MONOCYTES % (AUTO) 7 % (0-12); NEUTROPHILS # (AUTO) 8.8 10^3/uL (1.8-7.8); NEUTROPHILS % (AUTO) 59 % (42-75); PLATELET COUNT 673 10^3/uL (130-400); WHITE BLOOD COUNT 14.8 10^3/uL (4.3-11.0)
[2022-12-18 17:07] LABS: HEMATOCRIT 16 % (40-54)
[2022-12-18 17:15] LABS: ALBUMIN 3.4 GM/DL (3.2-4.5); POTASSIUM 5.4 MMOL/L (3.6-5.0)
[2022-12-18 17:16] LABS: INR 1.1 (0.8-1.4); PROTHROMBIN TIME PATIENT 14.2 SEC (12.2-14.7)
[2022-12-18 17:18] LABS: TOTAL PROTEIN 7.9 GM/DL (6.4-8.2)
[2022-12-18 17:19] LABS: BILIRUBIN,TOTAL 0.1 MG/DL (0.1-1.0)
[2022-12-18 17:21] LABS: CREATININE SERUM 2.83 MG/DL (0.60-1.30)
[2022-12-18 17:36] LABS: ANISOCYTOSIS SLIGHT; HYPOCHROMASIA MODERATE; LYMPHOCYTES % (MANUAL) 34 %; MICROCYTOSIS MARKED; MONOCYTES % (MANUAL) 4 %; NEUTROPHILS % (MANUAL) 62 %
[2022-12-18 18:00] LABS: CLARITY,URINE BLOODY; COLOR,URINE RED
[2022-12-18 18:01] LABS: BACTERIA,URINE LARGE /HPF; RBC,URINE TNTC /HPF; WBC,URINE TNTC /HPF
[2022-12-18 18:07] LABS: GLUCOSE, URINE (UA) 3+ (NEGATIVE)
[2022-12-18 18:08] LABS: BILIRUBIN,URINE 3+ (NEGATIVE); KETONES,URINE 3+ (NEGATIVE); LEUKOCYTE ESTERASE ,URINE 3+ (NEGATIVE); NITRITE,URINE POSITIVE (NEGATIVE)
[2022-12-18 18:09] LABS: PROTEIN,URINE 3+ (NEGATIVE)
[2022-12-18] MEDS ORDERED: cefTRIAXone 1 GM PRE-MIX 50 ML IV ONE (18:15)
[2022-12-18] MEDS ORDERED: NS IV 500 ML 500 ML IV SCH (18:30)
[2022-12-18 21:36] VITALS: BP 144/62
== END 2022-12-18 22:00 | disposition short-term general hospital (02) ==
LOC: EDUNIT# 16:46 → ER 16:47
DX: D64.89 Other specified anemias (principal); N39.0 Urinary tract infection, site not specified; D75.839 Thrombocytosis, unspecified; E87.5 Hyperkalemia; E11.9 Type 2 diabetes mellitus without complications; Z79.4 Long term (current) use of insulin
CPT/HCPCS: 80053; 81000; 85007; 85027; 85610; 85730; 86850; 86900; 86901; 86920; 87088; P9016; 36415

== ENCOUNTER 2022-12-30 12:27 | Emergency (ER) | payer MEDICARE, MEDICAID ==
[~2022-12-30] VITALS: Ht 167 cm; Wt 58.0 kg
--- NOTE | 2022-12-30 13:03 | ED GU-Male ---
General Chief Complaint: - Reproductive Stated Complaint: BLEEDING Nursing Triage Note: PT TO RM 6 PER W/C FROM [facility].PT CO OF BLOOD IN URINE, STARTED THIS AM. PT HAS RECENTLY BEEN TREATED IN [facility]. PT HAS NEIL IN PLACE. NO ZAHIDA BLEEDING NOTED AT THIS X. PT CO OF PAIN COCCYX HAS BREAKDOWN. Source: patient, family, old records Exam Limitations: no limitations History of Present Illness Date Seen by Provider: Dec 30, 2022 Time Seen by Provider: 12:32 Initial Comments 72 yo M here for blood in his catheter. He was seen here for the same at the beginning of Dec and ultimately transferred to [facility] after he was found to have significant bleeding causing anemia. Hgb at that time was in the 5.0. He was transfused several units of blood. His tells me on arrival to [facility] in [place] they placed stents in his ureters and the bleeding had stopped prior to discharge and not recurred until today. His was visiting him at the group home and noted some blood in his neil bag with some small clots. He has chronic SOB, unchanged. No dizziness, lightheadedness, CP. He has chronic pain in a buttock wound but no new pains. He was given a pain pill prior to arrival per his report. Allergies and Home Medications Allergies Coded Allergies: choline fenofibrate (Verified Allergy, Unknown, 12/07/17) gemfibrozil (Verified Allergy, Unknown, 12/07/17) niacin (Verified Allergy, Unknown, 12/07/17) pioglitazone (Verified Allergy, Unknown, 12/07/17) Patient Home Medication List Home Medication List Reviewed: Yes Albuterol Sulfate (Ventolin Hfa) 1 Puff Puff, 2 PUFF IH Q4H PRN for SHORTNESS OF BREATH Prescribed by: ERENDIRA SERRANO on 07/25/221115 Alirocumab (Praluent Pen) 75 Mg/Ml Pen.injctr, 75 MG INJ EVERY 2 WEEKS Prescribed by: ERENDIRA SERRANO on 07/25/22 111 Amlodipine Besylate (Amlodipine Besylate) 10 Mg Tablet, 10 MG PO DAILY Prescribed by: ERENDIRA SERRANO on 07/25/22 111 Aspirin (Aspirin EC) 81 Mg Tablet.dr, 81 MG PO DAILY Prescribed by: ERENDIRA SERRANO on 07/25/22 111 Atorvastatin Calcium (Atorvastatin Calcium) 80 Mg Tablet, 80 MG PO HS Prescribed by: ERENDIRA SERRANO on 07/25/22 111 Cholecalciferol (Vitamin D3) (Vitamin D3) 1,250 Mcg (40561 Unit) Capsule, 1,250 MCG PO FRIDAYS Prescribed by: ERENDIRA SERRANO on 07/25/22 111 Clopidogrel Bisulfate (Clopidogrel) 75 Mg Tablet, 75 MG PO DAILY Prescribed by: ERENDIRA SERRANO on 07/25/22 111 Colesevelam HCl (Welchol) 625 Mg Tablet, 625 MG PO TID PRN for DIARRHEA Prescribed by: ERENDIRA SERRANO on 07/25/221115 Empagliflozin (Jardiance) 25 Mg Tablet, 25 MG PO DAILY, (Reported) Entered as Reported by: Chapis Jenkins on 10/18/22 114 Hydralazine HCl (Hydralazine HCl) 25 Mg Tablet, 25 MG PO Q8HR Prescribed by: ERENDIRA SERRANO on 07/25/221115 Hydrocodone/Acetaminophen (Hydrocodone-Acetamin 5-325 mg) 5 Mg-325 Mg Tablet, 1 TAB PO Q8H PRN for PAIN-MODERATE (5-7) Prescribed by: ERENDIRA SERRANO on 07/25/22 111 Insulin Aspart (Novolog Flexpen) 100 Unit/Ml (3 Ml) Solution, 18 UNITS SQ TIDPC Prescribed by: Chapis Jenkins on 10/18/22 114 Insulin Degludec (Tresiba Flextouch U-200) 200 Unit/Ml (3 Ml) Insuln.pen, 10 UNIT SQ DAILY Prescribed by: ERENDIRA SERRANO on 07/25/221115 Levothyroxine Sodium (Levothyroxine Sodium) 125 Mcg Tablet, 125 MCG PO DAILY Prescribed by: ERENDIRA SERRANO on 07/25/22 111 Mirabegron (Myrbetriq) 50 Mg Tab.er.24h, 50 MG PO DAILY Prescribed by: ERENDIRA SERRANO on 07/25/22 111 Omeprazole (Omeprazole) 20 Mg Capsule.dr, 20 MG PO HS Prescribed by: ERENDIRA SERRANO on 07/25/22 111 Sennosides/Docusate Sodium (Senna S Tablet) 8.6 Mg-50 Mg Tablet, 2 EACH PO BID PRN for CONSTIPATION-6TH LINE Prescribed by: ERENDIRA SERRANO on 07/25/22 1116 Venlafaxine HCl (Venlafaxine HCl) 75 Mg Tab, 75 MG PO DAILY Prescribed by: ERENDIRA SERRANO on 07/25/22 1116 [allrocumab] , 75 MG SQ DAILY, (Reported) Entered as Reported by: Chapis Jenkins on 10/18/22 1142 Review of Systems Review of Systems Constitutional: no symptoms reported EENTM: no symptoms reported Respiratory: short of breath (chronic) Cardiovascular: no symptoms reported Gastrointestinal: no symptoms reported Genitourinary: hematuria Musculoskeletal: no symptoms reported Skin: no symptoms reported Psychiatric/Neurological: No Symptoms Reported Endocrine: No Symptoms Reported Hematologic/Lymphatic: No Symptoms Reported Past Qfetqdr-Jqqxfs-Lfaiea Hx Patient Social History Tobacco Use?: No Substance use?: No Alcohol Use?: No Pt feels they are or have been: No Immunizations Up To Date Tetanus Booster (TDap): More than 5yrs PED Vaccines UTD: No Influenza Vaccine Up-to-Date: No; Not Current First/Initial COVID19 Vaccinat: NO Second COVID19 Vaccination Ben: NO Third COVID19 Vaccination Date: NO Seasonal Allergies Seasonal Allergies: Yes Past Medical History Surgery/Hospitalization HX: HTN, CA. 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 Hearing Impairment: Denies Cancer: No Psychosocial: Yes Anxiety, Depression Integumentary: No Blood Disorders: No Adverse Reaction/Blood Tranf: No (N/A) Family Medical History Alcoholism G8 BROTHER G8 BROTHER Alzheimer's disease 19 MOTHER Arthritis 19 FATHER 19 MOTHER Asthma 19 FATHER Cataracts 19 FATHER 19 MOTHER G8 BROTHER G8 BROTHER G8 SISTER G8 SISTER G8 SISTER Completed stroke 19 FATHER G8 SISTER Deafness or hearing loss G8 BROTHER Diabetes mellitus 19 FATHER 19 MOTHER G8 BROTHER G8 BROTHER G8 BROTHER G8 SISTER G8 SISTER G8 SISTER Hypertension 19 FATHER 19 MOTHER G8 BROTHER G8 BROTHER G8 BROTHER G8 BROTHER G8 SISTER G8 SISTER G8 SISTER G8 SISTER G8 SISTER G8 SISTER G8 SISTER Respiratory disorder G8 BROTHER No Family History of: AIDS Abdominal aortic aneurysm Crystal's disease Aphasia Cancer of mouth Cardiovascular disease Colon cancer Congenital disease Congenital heart disease Coronary thrombosis Cystic fibrosis Dementia Drug abuse Dysphasia Fibrocystic disease of breast Gastroenteritis Glaucoma Headache disorder Hypercholesterolemia Infertility Kidney disease Myocardial infarction Neoplasm Not obtainable due to adoption Osteoporosis Parkinson's disease Prostate cancer Psychosocial problem Seizure disorder Severe allergy Thyroid disease Tuberculosis Visual disorder No Pertinent Family Hx Physical Exam Vital Signs Vital Signs - First Documented 12/30/22 12:35 Pulse 94 Resp 18 Pulse Ox 99 Capillary Refill : Height, Weight, BMI Height: 5'10.00" Weight: 161lbs. 4.0oz. 73.654527zt; 20.00 BMI Method:Stated General Appearance: WD/WN, no apparent distress HEENT: normal ENT inspection, pharynx normal Neck: non-tender, supple Cardiovascular: regular rate, rhythm, no edema, no murmur Respiratory: chest non-tender, lungs clear, normal breath sounds, no respiratory distress Gastrointestinal: normal bowel sounds, non tender, soft, no organomegaly Genital/Rectal: normal genital exam, other (small amount of blood in neil bag, some small clots. ) Back: normal inspection, no vertebral tenderness Extremities: other (L BKA) Neurologic/Psychiatric: alert, oriented x 3 Skin: normal color, warm/dry Progress/Results/Core Measures Suspected Sepsis SIRS Temperature: Pulse: 94 Respiratory Rate: 18 Laboratory Tests 12/30/22 13:00: White Blood Count 21.0H Blood Pressure / Mean: Laboratory Tests 12/30/22 13:00: Creatinine 1.54H, Platelet Count 690H, Total Bilirubin 0.1 Results/Orders Lab Results Laboratory Tests Test 12/30/22 13:00 12/30/22 13:38 Range/Units White Blood Count 21.0 H 4.3-11.0 10^3/uL Red Blood Count 2.93 L 4.30-5.52 10^6/uL Hemoglobin 8.3 L 13.3-17.7 g/dL Hematocrit 26 L 40-54 % Mean Corpuscular Volume 88 80-99 fL Mean Corpuscular Hemoglobin 28 25-34 pg Mean Corpuscular Hemoglobin Concent 32 32-36 g/dL Red Cell Distribution Width 16.4 H 10.0-14.5 % Platelet Count 690 H 130-400 10^3/uL Mean Platelet Volume 9.1 9.0-12.2 fL Immature Granulocyte % (Auto) 1 % Neutrophils (%) (Auto) 72 42-75 % Lymphocytes (%) (Auto) 18 12-44 % Monocytes (%) (Auto) 6 0-12 % Eosinophils (%) (Auto) 3 0-10 % Basophils (%) (Auto) 1 0-10 % Neutrophils # (Auto) 15.1 H 1.8-7.8 10^3/uL Lymphocytes # (Auto) 3.7 1.0-4.0 10^3/uL Monocytes # (Auto) 1.3 H 0.0-1.0 10^3/uL Eosinophils # (Auto) 0.7 H 0.0-0.3 10^3/uL Basophils # (Auto) 0.1 0.0-0.1 10^3/uL Immature Granulocyte # (Auto) 0.2 H 0.0-0.1 10^3/uL Neutrophils % (Manual) 65 % Lymphocytes % (Manual) 27 % Monocytes % (Manual) 4 % Eosinophils % (Manual) 2 % Basophils % (Manual) 2 % Band Neutrophils 0 % Polychromasia SLIGHT Anisocytosis SLIGHT Sodium Level 135 135-145 MMOL/L Potassium Level 4.8 3.6-5.0 MMOL/L Chloride Level 100 98-107 MMOL/L Carbon Dioxide Level 22 21-32 MMOL/L Anion Gap 13 5-14 MMOL/L Blood Urea Nitrogen 27 H 7-18 MG/DL Creatinine 1.54 H 0.60-1.30 MG/DL Estimat Glomerular Filtration Rate 48 BUN/Creatinine Ratio 18 Glucose Level 84 70-105 MG/DL Calcium Level 8.9 8.5-10.1 MG/DL Corrected Calcium 9.7 8.5-10.1 MG/DL Total Bilirubin 0.1 0.1-1.0 MG/DL Aspartate Amino Transf (AST/SGOT) 31 5-34 U/L Alanine Aminotransferase (ALT/SGPT) 48 0-55 U/L Alkaline Phosphatase 204 H 40-136 U/L Total Protein 7.7 6.4-8.2 GM/DL Albumin 3.0 L 3.2-4.5 GM/DL My Orders Orders - EMERY GALLAGHER DO Type And Screen (12/30/22 12:40) Cbc With Automated Diff (12/30/22 12:40) Comprehensive Metabolic Panel (12/30/22 12:43) Manual Differential (12/30/22 13:00) Ua Culture If Indicated (12/30/22 13:57) Vital Signs/I&O 12/30/22 12:35 Pulse 94 Resp 18 B/P (MAP) Pulse Ox 99 Capillary Refill : Departure Communication (Admissions) Patient is hemodynamically stable. No tachycardia, hypotension. He is not significantly pale. His hemoglobin is 8.6 which is markedly improved from his p revious stay. He flushed his Neil unclamped and there is no active bleeding but he did have some blood clots in the Neil bag from prior to arrival. He is not having any pain in the bladder area. He does have progressively worsening elevated white blood cell count. He is currently on cefdinir, tomorrow is his last day. We did take a urine sample however it is from the Neil and he really will not be able to make any definitive treatment decisions based on this. I spoke with urology at [facility], Dr. Villegas, specifically about this and she would like a different antibiotic. He recommends to ensure there are no other sources for infection that we are missing but does not recommend any further antibiotics at this time, rather wishes to wait on culture and make decisions based on that. The patient is afebrile, nontoxic. Be discharged back to the nursing facility with recommendation to continue cefdinir, recheck his labs in 48 hours. He will return if he develops fevers or bleeding. Impression Primary Impression: Hematuria Qualified Codes: R31.9 - Hematuria, unspecified Disposition: HOME, SELF-CARE Condition: Stable Departure-Patient Inst. Referrals: REINALDO HASSAN MD (PCP/Family) Primary Care Physician Patient Instructions: Blood in Urine (Hematuria), Adult ED Add. Discharge Instructions: Your blood counts are stable. As discussed your white blood cell has been elevating. It is unclear what is causing this. I discussed with the urologist and they dont want to start different antibiotics at this time. We will wait to see what bacteria grow from your urine and make a decision from that. For now, finish cefdinir as previously prescribed. Return to the ER for fever or significant bleeding. Have your blood count repeated in 48 hours. All discharge instructions reviewed with patient and/or family. Voiced understanding. EMERY GALLAGHER DO Dec 30, 2022 13:03
[2022-12-30 13:29] LABS: BASOPHILS # (AUTO) 0.1 10^3/uL (0.0-0.1); BASOPHILS % (AUTO) 1 % (0-10); EOSINOPHILS # (AUTO) 0.7 10^3/uL (0.0-0.3); EOSINOPHILS % (AUTO) 3 % (0-10); HEMATOCRIT 26 % (40-54); HEMOGLOBIN 8.3 g/dL (13.3-17.7); LYMPHOCYTES # (AUTO) 3.7 10^3/uL (1.0-4.0); LYMPHOCYTES % (AUTO) 18 % (12-44); MEAN CORPUSCULAR HEMOGLOBIN 28 pg (25-34); MEAN CORPUSCULAR HGB CONC 32 g/dL (32-36); MEAN CORPUSCULAR VOLUME 88 fL (80-99); MEAN PLATELET VOLUME 9.1 fL (9.0-12.2); MONOCYTES # (AUTO) 1.3 10^3/uL (0.0-1.0); MONOCYTES % (AUTO) 6 % (0-12); NEUTROPHILS # (AUTO) 15.1 10^3/uL (1.8-7.8); NEUTROPHILS % (AUTO) 72 % (42-75); PLATELET COUNT 690 10^3/uL (130-400)
[2022-12-30 13:39] LABS: POTASSIUM 4.8 MMOL/L (3.6-5.0)
[2022-12-30 13:40] LABS: CALCIUM 8.9 MG/DL (8.5-10.1)
[2022-12-30 13:41] LABS: TOTAL PROTEIN 7.7 GM/DL (6.4-8.2)
[2022-12-30 13:43] LABS: BILIRUBIN,TOTAL 0.1 MG/DL (0.1-1.0)
[2022-12-30 13:45] LABS: CREATININE SERUM 1.54 MG/DL (0.60-1.30)
[2022-12-30 14:02] LABS: BAND NEUTROPHILS 0 %; LYMPHOCYTES % (MANUAL) 27 %; NEUTROPHILS % (MANUAL) 65 %
[2022-12-30 14:03] LABS: ANISOCYTOSIS SLIGHT; BASOPHILS % (MANUAL) 2 %; EOSINOPHILS % (MANUAL) 2 %; MONOCYTES % (MANUAL) 4 %; POLYCHROMASIA SLIGHT
[2022-12-30 14:20] LABS: BILIRUBIN,URINE NEGATIVE (NEGATIVE); CLARITY,URINE TURBID; COLOR,URINE YELLOW; GLUCOSE, URINE (UA) 3+ (NEGATIVE); KETONES,URINE NEGATIVE (NEGATIVE); LEUKOCYTE ESTERASE ,URINE 2+ (NEGATIVE); NITRITE,URINE NEGATIVE (NEGATIVE); PROTEIN,URINE 3+ (NEGATIVE)
[2022-12-30 14:35] VITALS: BP 116/56
[2022-12-30 14:37] LABS: BACTERIA,URINE MODERATE /HPF; WBC,URINE TNTC /HPF; YEAST,URINE FEW /HPF
== END 2022-12-30 14:35 | disposition home or self-care (01) ==
LOC: EDUNIT# 12:27 → ER 12:29
DX: R31.9 Hematuria, unspecified (principal); E11.9 Type 2 diabetes mellitus without complications; Z79.4 Long term (current) use of insulin; Z28.310 Unvaccinated for COVID-19; Z96.0 Presence of urogenital implants
CPT/HCPCS: 36415; 80053; 81000; 85007; 85027; 86850; 86900; 86901; 87088; 99282

== ENCOUNTER 2023-01-03 11:47 | Emergency (ER) | payer MEDICARE, MEDICAID ==
[~2023-01-03] VITALS: Ht 175.3 cm; Wt 90.7 kg
--- NOTE | 2023-01-03 14:26 | ED General ---
General Chief Complaint: General Problems/Pain Stated Complaint: COULDN'T DRAW BLOOD FOR LABS Nursing Triage Note: PT TO TRIAGE VIA PERSON W/C STATING SENT FROM DR HASSAN. PT FAMILY STATES THAT NURSES AT PCP WERE UNABLE TO DRAW BLOOD AND THAT PT SENT TO ED FOR BLOOD DRAW. PT AND FAMILY UNABLE TO STATE WHAT LAB TESTS NEEDED PERFORMED. PT FAMILY STATES PT HAS BLOOD COMING FROM CATHETER AND THAT PT IS IN A LOT OF PAIN. PT FAMILY STATES THAT THEY WANT PT TRANSFERRED TO [facility]. Source of Information: Patient Exam Limitations: No Limitations History of Present Illness Date Seen by Provider: Jan 03, 2023 Time Seen by Provider: 14:26 Initial Comments This 72-year-old gentleman presents to the emergency room accompanied by his with complaints of gross hematuria in his Gaffney catheter. He is a resident of the [facility]. Staff was attempting blood draws today and were unable to obtain any blood after multiple attempts. Patient had been seen in the ER at this facility on December 18 and had hematuria at that time. He was transferred to [facility] in [place] for urologic consult. During that admission he had bilateral ureteral stents placed. The exact reason is unclear, but his states that he developed clots in his ureters. Patient is on Plavix because of peripheral vascular disease. His reports peripheral vascular stenting in the past. 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 Patient reports his urine cleared after being discharged from [facility]. He had a return visit to [facility] in [place] on December 30 and had developed more hematuria at that time. He was still on cefdinir for treatment of urinary tract infection. The ER provider consulted [facility] urology at that time. Admission was not recommended. Follow-up on urine culture after discharge from the ER was recommended before making any antimicrobial treatment changes. Patient has a long history of severe anemia requiring transfusions. According to patient and his , they do not know why he has had recurrent problems with anemia. They have not had a hematology consult. His hemoglobin on December 18 before transfusion was 5.0. Hemoglobin during his ER visit on December 30 was 8.3. Hemoglobin today is 6.1. Patient has not identified any hematochezia or melena. Patient's reports the Gaffney catheter canister was emptied this morning. There is presently about 200 mL of grossly bloody urine in the canister. detention staff had reported patient was pulling on his catheter the past couple of days. Acute kidney injury was also noted over the past month with a creatinine of 2.83 on December 20. His baseline creatinine is around 1.5. Patient is afebrile and not tachycardic. He does not appear septic. His reports he is more confused than usual. He complains of chronic back pain and some suprapubic pain. His primary care provider is Dr. Hassan. They were to have a urology follow-up in [place] tomorrow. Allergies and Home Medications Allergies Coded Allergies: choline fenofibrate (Verified Allergy, Unknown, 12/07/17) gemfibrozil (Verified Allergy, Unknown, 12/07/17) niacin (Verified Allergy, Unknown, 12/07/17) pioglitazone (Verified Allergy, Unknown, 12/07/17) Patient Home Medication List Home Medication List Reviewed: Yes Albuterol Sulfate (Ventolin Hfa) 1 Puff Puff, 2 PUFF IH Q4H PRN for SHORTNESS OF BREATH Prescribed by: ERENDIRA SERRANO on 07/25/221115 Alirocumab (Praluent Pen) 75 Mg/Ml Pen.injctr, 75 MG INJ EVERY 2 WEEKS Prescribed by: ERENDIRA SERRANO on 07/25/221115 Amlodipine Besylate (Amlodipine Besylate) 10 Mg Tablet, 10 MG PO DAILY Prescribed by: ERENDIRA SERRANO on 07/25/221115 Aspirin (Aspirin EC) 81 Mg Tablet.dr, 81 MG PO DAILY Prescribed by: ERENDIRA SERRANO on 07/25/221115 Atorvastatin Calcium (Atorvastatin Calcium) 80 Mg Tablet, 80 MG PO HS Prescribed by: ERENDIRA SERRANO on 07/25/221115 Cholecalciferol (Vitamin D3) (Vitamin D3) 1,250 Mcg (57509 Unit) Capsule, 1,250 MCG PO FRIDAYS Prescribed by: ERENDIRA SERRANO on 07/25/221115 Clopidogrel Bisulfate (Clopidogrel) 75 Mg Tablet, 75 MG PO DAILY Prescribed by: ERENDIRA SERRANO on 07/25/221115 Colesevelam HCl (Welchol) 625 Mg Tablet, 625 MG PO TID PRN for DIARRHEA Prescribed by: ERENDIRA SERRANO on 07/25/22 111 Empagliflozin (Jardiance) 25 Mg Tablet, 25 MG PO DAILY, (Reported) Entered as Reported by: Chapis Jenkins on 10/18/22 114 Hydralazine HCl (Hydralazine HCl) 25 Mg Tablet, 25 MG PO Q8HR Prescribed by: ERENDIRA SERRANO on 07/25/22 111 Hydrocodone/Acetaminophen (Hydrocodone-Acetamin 5-325 mg) 5 Mg-325 Mg Tablet, 1 TAB PO Q8H PRN for PAIN-MODERATE (5-7) Prescribed by: ERENDIRA SERRANO on 07/25/22 111 Insulin Aspart (Novolog Flexpen) 100 Unit/Ml (3 Ml) Solution, 18 UNITS SQ TIDPC Prescribed by: Chapis Jenkins on 10/18/22 114 Insulin Degludec (Tresiba Flextouch U-200) 200 Unit/Ml (3 Ml) Insuln.pen, 10 UNIT SQ DAILY Prescribed by: ERENDIRA SERRANO on 07/25/221115 Levothyroxine Sodium (Levothyroxine Sodium) 125 Mcg Tablet, 125 MCG PO DAILY Prescribed by: ERENDIRA SERRANO on 07/25/22 111 Mirabegron (Myrbetriq) 50 Mg Tab.er.24h, 50 MG PO DAILY Prescribed by: ERENDIRA SERRANO on 07/25/22 111 Omeprazole (Omeprazole) 20 Mg Capsule.dr, 20 MG PO HS Prescribed by: ERENDIRA SERRANO on 07/25/22 111 Sennosides/Docusate Sodium (Senna S Tablet) 8.6 Mg-50 Mg Tablet, 2 EACH PO BID PRN for CONSTIPATION-6TH LINE Prescribed by: ERENDIRA SERRANO on 07/25/221115 Venlafaxine HCl (Venlafaxine HCl) 75 Mg Tab, 75 MG PO DAILY Prescribed by: ERENDIRA SERRANO on 07/25/22 111 [allrocumab] , 75 MG SQ DAILY, (Reported) Entered as Reported by: Chapis Jenkins on 10/18/22 114 Review of Systems Review of Systems Constitutional: no symptoms reported EENTM: no symptoms reported Respiratory: no symptoms reported Cardiovascular: see HPI Gastrointestinal: no symptoms reported Genitourinary: see HPI Musculoskeletal: no symptoms reported Skin: no symptoms reported Psychiatric/Neurological: No Symptoms Reported Hematologic/Lymphatic: See HPI Immunological/Allergic: no symptoms reported Past Btpyfwx-Mdxyqd-Bpaval Hx Patient Social History Tobacco Use?: No Smoking Status: Never a Smoker Smokeless Tobacco Frequency: Never a User Use of E-Cig and/or Vaping dev: No Use of E-Cig and/or Vaping Zack: Never a User Substance use?: No Alcohol Use?: No Pt feels they are or have been: No Immunizations Up To Date Tetanus Booster (TDap): More than 5yrs PED Vaccines UTD: No First/Initial COVID19 Vaccinat: NO Second COVID19 Vaccination Ben: NO Third COVID19 Vaccination Date: NO Seasonal Allergies Seasonal Allergies: Yes Past Medical History Surgery/Hospitalization HX: HTN, RI. DIABETES, CVA, [facility] Surgeries: Yes (hemmorhoids removed, CATARACTS, WRIST FX, right 2nd toe amputation) Amputation Respiratory: Yes Sleep Apnea, COPD Currently Using CPAP: No Currently Using BIPAP: No Cardiac: Yes High Cholesterol, Hypertension, Peripheral Vascular Neurological: Yes Dementia, Neuropathy, Parkinson's Disease Reproductive Disorders: No Sexually Transmitted Disease: No HIV/AIDS: No Genitourinary: Yes Renal Failure (Chronic kidney disease) Gastrointestinal: Yes Gastroesophageal Reflux, Irritable Bowel Musculoskeletal: Yes Arthritis, Chronic Back Pain, Fractures Endocrine: Yes (Type II) Diabetes, 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 Hearing Impairment: Denies Cancer: No Psychosocial: Yes Anxiety, Depression Integumentary: No Blood Disorders: No Adverse Reaction/Blood Tranf: No (N/A) Family Medical History Alcoholism G8 BROTHER G8 BROTHER Alzheimer's disease 19 MOTHER Arthritis 19 FATHER 19 MOTHER Asthma 19 FATHER Cataracts 19 FATHER 19 MOTHER G8 BROTHER G8 BROTHER G8 SISTER G8 SISTER G8 SISTER Completed stroke 19 FATHER G8 SISTER Deafness or hearing loss G8 BROTHER Diabetes mellitus 19 FATHER 19 MOTHER G8 BROTHER G8 BROTHER G8 BROTHER G8 SISTER G8 SISTER G8 SISTER Hypertension 19 FATHER 19 MOTHER G8 BROTHER G8 BROTHER G8 BROTHER G8 BROTHER G8 SISTER G8 SISTER G8 SISTER G8 SISTER G8 SISTER G8 SISTER G8 SISTER Respiratory disorder G8 BROTHER No Family History of: AIDS Abdominal aortic aneurysm Britton's disease Aphasia Cancer of mouth Cardiovascular disease Colon cancer Congenital disease Congenital heart disease Coronary thrombosis Cystic fibrosis Dementia Drug abuse Dysphasia Fibrocystic disease of breast Gastroenteritis Glaucoma Headache disorder Hypercholesterolemia Infertility Kidney disease Myocardial infarction Neoplasm Not obtainable due to adoption Osteoporosis Parkinson's disease Prostate cancer Psychosocial problem Seizure disorder Severe allergy Thyroid disease Tuberculosis Visual disorder No Pertinent Family Hx Physical Exam Vital Signs Vital Signs - First Documented 01/03/23 01/03/23 12:25 16:59 Temp 36.2 Pulse 91 Resp 14 B/P (MAP) 109/71 (84) Pulse Ox 97 O2 Delivery Room Air Capillary Refill : Less Than 3 Seconds Height, Weight, BMI Height: 5'10.00" Weight: 161lbs. 4.0oz. 73.540487id; 29.00 BMI Method:Stated General Appearance: No Apparent Distress, WD/WN HEENT: PERRL/EOMI, Normal ENT Inspection Neck: Normal Inspection Respiratory: Lungs Clear, Normal Breath Sounds, No Accessory Muscle Use Cardiovascular: Regular Rate, Rhythm, No Edema, No Murmur Gastrointestinal: Normal Bowel Sounds, Soft, Tenderness (Mild in the suprapubic region) Genital/Rectal: Other (Gaffney catheter containing grossly bloody urine) Extremity: Normal Inspection, No Pedal Edema Neurologic/Psychiatric: Alert, No Motor/Sensory Deficits, Normal Mood/Affect, Other (Somewhat confused) Skin: Normal Color, Warm/Dry Progress/Results/Core Measures Suspected Sepsis SIRS Temperature: Pulse: 91 Respiratory Rate: 14 Laboratory Tests 01/03/23 14:15: White Blood Count 25.8H 01/04/23 08:27: White Blood Count 15.3H Blood Pressure 109 /71 Mean: 84 Laboratory Tests 01/03/23 14:15: Creatinine 2.43H, Platelet Count 795H, Total Bilirubin 0.2 01/04/23 08:27: Platelet Count 708H Results/Orders Lab Results Laboratory Tests Test 01/03/23 00:10 01/03/23 14:15 01/03/23 15:22 01/04/23 08:27 Range/Units Urine Color RED H Urine Clarity CLOUDY Urine pH 5.0 5-9 Urine Specific [place] <=1.005 1.016-1.022 Urine Protein 3+ H NEGATIVE Urine Glucose (UA) 2+ H NEGATIVE Urine Ketones 3+ H NEGATIVE Urine Nitrite POSITIVE H NEGATIVE Urine Bilirubin NEGATIVE NEGATIVE Urine Urobilinogen 2.0 < = 1.0 MG/DL Urine Leukocyte Esterase 3+ H NEGATIVE Urine RBC (Auto) 3+ H NEGATIVE Urine RBC TNTC H /HPF Urine WBC 50-100 H /HPF Urine Squamous Epithelial Cells 0-2 /HPF Urine Crystals NONE /LPF Urine Bacteria LARGE H /HPF Urine Casts NONE /LPF Urine Mucus NEGATIVE /LPF Urine Culture Indicated YES White Blood Count 25.8 H 15.3 H 4.3-11.0 10^3/uL Red Blood Count 2.16 L 2.67 L 4.30-5.52 10^6/uL Hemoglobin 6.1 #*L 7.9 #L 13.3-17.7 g/dL Hematocrit 19 *L 24 L 40-54 % Mean Corpuscular Volume 88 88 80-99 fL Mean Corpuscular Hemoglobin 28 30 25-34 pg Mean Corpuscular Hemoglobin Concent 32 34 32-36 g/dL Red Cell Distribution Width 16.7 H 15.9 H 10.0-14.5 % Platelet Count 795 H 708 H 130-400 10^3/uL Mean Platelet Volume 9.2 8.8 L 9.0-12.2 fL Immature Granulocyte % (Auto) 1 1 % Neutrophils (%) (Auto) 80 H 73 42-75 % Lymphocytes (%) (Auto) 12 17 12-44 % Monocytes (%) (Auto) 5 6 0-12 % Eosinophils (%) (Auto) 1 3 0-10 % Basophils (%) (Auto) 0 1 0-10 % Neutrophils # (Auto) 20.7 H 11.2 H 1.8-7.8 10^3/uL Lymphocytes # (Auto) 3.2 2.6 1.0-4.0 10^3/uL Monocytes # (Auto) 1.2 H 0.9 0.0-1.0 10^3/uL Eosinophils # (Auto) 0.2 0.5 H 0.0-0.3 10^3/uL Basophils # (Auto) 0.1 0.1 0.0-0.1 10^3/uL Immature Granulocyte # (Auto) 0.3 H 0.1 0.0-0.1 10^3/uL Neutrophils % (Manual) 86 73 % Lymphocytes % (Manual) 10 18 % Monocytes % (Manual) 4 3 % Hypochromasia MODERATE Anisocytosis MODERATE Sodium Level 130 L 135-145 MMOL/L Potassium Level 5.8 H 3.6-5.0 MMOL/L Chloride Level 96 L 98-107 MMOL/L Carbon Dioxide Level 23 21-32 MMOL/L Anion Gap 11 5-14 MMOL/L Blood Urea Nitrogen 44 H 7-18 MG/DL Creatinine 2.43 H 0.60-1.30 MG/DL Estimat Glomerular Filtration Rate 28 BUN/Creatinine Ratio 18 Glucose Level 157 H 70-105 MG/DL Calcium Level 9.0 8.5-10.1 MG/DL Corrected Calcium 9.6 8.5-10.1 MG/DL Total Bilirubin 0.2 0.1-1.0 MG/DL Aspartate Amino Transf (AST/SGOT) 29 5-34 U/L Alanine Aminotransferase (ALT/SGPT) 27 0-55 U/L Alkaline Phosphatase 175 H 40-136 U/L Total Protein 7.7 6.4-8.2 GM/DL Albumin 3.2 3.2-4.5 GM/DL C-Reactive Protein High Sensitivity 21.21 H 0.00-0.50 MG/DL Eosinophils % (Manual) 6 % Platelet Estimate INCREASED Blood Morphology Comment NORMAL Test 01/04/23 11:45 01/04/23 15:22 Range/Units Glucometer 201 H 70-110 MG/DL Lab Scanned Report Transfusion Reaction Form [id number] My Orders Orders - FLORA CAPELLAN MD Ua Culture If Indicated (01/03/23 14:26) Cbc With Automated Diff (01/03/23 14:28) Comprehensive Metabolic Panel (01/03/23 14:28) Ed Iv/Invasive Line Start (01/03/23 14:28) Manual Differential (01/03/23 14:15) Red Cells Leukocytes Reduced (01/03/23 14:49) Type And Screen (01/03/23 14:49) Ns Iv 1000 Ml (Sodium Chloride 0.9%) (01/03/23 15:15) Ct Abdomen/Pelvis Wo (01/03/23 15:15) Hs C Reactive Protein (01/03/23 15:15) Chest 1 View, Ap/Pa Only (01/03/23 15:15) Morphine Injection (Morphine Injection (01/03/23 16:42) Fluconazole 200 Mg/100 Ml (Diflucan Iv) (01/03/23 18:30) Urine Culture (01/03/23 00:10) Medications Given in ED Vital Signs/I&O 01/03/23 01/03/23 01/03/23 01/03/23 12:25 16:59 17:27 18:39 Temp 36.2 36.4 36.3 36.0 Pulse 91 85 86 84 Resp 14 16 16 B/P (MAP) 109/71 (84) 114/61 137/ 132/84 Pulse Ox 97 97 97 O2 Delivery Room Air Room Air 01/04/23 12:58 Pulse 87 Resp 18 B/P (MAP) 115/59 Pulse Ox 95 01/05/23 00:00 Output Total 1000 ml Balance -1000 ml Capillary Refill : Less Than 3 Seconds Blood Pressure Mean: 84 Progress Note : Time: 20:10 Progress Note Patient and were interviewed. Chart was reviewed. Patient was examined. Labs were obtained and severe anemia of 6.1 was identified. A unit of packed red blood cells was transfused. Morphine was given for pain control. On review of labs acute kidney injury was again noted along with other abnormalities including hyperkalemia and hyponatremia. A liter of IV normal saline was infused in addition to the blood. Urine culture from prior visit was reviewed and found to have large yeast growth. Diflucan 200 mg IV was ordered for treatment. Gaffney catheter was clamped. We attempted twice to obtain fresh urine specimen for urinalysis and culture. We were unable to obtain a sufficient specimen. Patient was producing very little urine while in the ER. The catheter was flushed with sterile water and bloody water with clots was returned. CT of the abdomen and pelvis without contrast was obtained. This demonstrated stents with some mild hydroureter bilaterally. There is heterogeneous material in the bladder consistent with blood or clot. Consult was obtained with Dr. Bemran, urologist at [facility]. He advised stopping Plavix and looking for other concurrent contributing causes of anemia as it is doubtful of the hematuria caused such a drop in the hemoglobin. He advised further urologic review to understand why the ureteral stents were placed and for evaluating their function. If admitted, he was agreeable to consultation. Transfer was then sought. Patient would greatly benefit from services not available in [place] including urology, nephrology, and infectious disease. Patient and were agreeable to transfer. At the time of this progress note a bed assignment had not been provided although patient was excepted at [facility]. Transfer was accepted by Dr. Hutton, hospitalist at [facility] at 19:25. Care of this patient was transitioned to Dr. Heaton at this time. Diagnostic Imaging Diagonstic Imaging: CT Plain Films/CT/US/NM/MRI: abdomen, pelvis Comments CT abdomen and pelvis viewed by me and report reviewed. See report below: NAME: SRAVANI ARTEAGA [facility] REC#: [id number] PT STATUS: REG ER : 1950 PHYSICIAN: FLORA CAPELLAN MD ADMIT DATE: 01/03/23/ER Signed Date of Exam:01/03/23 CT ABDOMEN/PELVIS WO PROCEDURE: CT abdomen and pelvis without contrast. TECHNIQUE: Multiple contiguous axial images were obtained through the abdomen and pelvis without the use of intravenous contrast. Auto Exposure Controls were utilized during the CT exam to meet ALARA standards for radiation dose reduction. INDICATION: Abdominal pain. Indwelling ureteral stents. COMPARISON: 07/11/2022 FINDINGS: Included portions of the lung bases show punctate juxtapleural micronodule of the lateral margins of the right lower lobe. It measures 2 mm and is stable compared to 07/11/2022. CT ABDOMEN: Bilateral double-J ureteral stents are in place. Stents appear to be in appropriate position. Patency of the stents cannot be directly assessed on this exam. There does appear to be mild hydronephrosis, right greater than left. 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 The indwelling stent resides within the inferior pole ureter. Nonobstructive punctate bilateral renal calculi are noted. The adrenal glands, spleen, pancreas, and liver have an unremarkable noncontrast CT appearance. Small bowel loops are nondistended. Normal appendix is identified. There is no loculated fluid collection, free fluid or free air within the abdomen. No abnormal mesenteric or retroperitoneal adenopathy is identified. Osseous structures show no acute abnormalities. Nonacute T12 compression fracture is noted CT PELVIS: There is a large amount of hyperdense material within the lumen of urinary bladder. Indwelling Gaffney catheter is present. Small amount of gas is also present within the lumen of urinary bladder. There is no loculated fluid collection, free fluid or free air within the pelvis. No abnormal adenopathy is seen. Osseous structures show no acute abnormalities. IMPRESSION: 1. Large amount of hyperdense debris is present within the lumen of urinary bladder and is felt to most likely represent blood products. 2. Indwelling bilateral double-J ureteral stents are identified and appear appropriately positioned. There does appear to be mild bilateral hydronephrosis. This does raise question regarding the patency of the stents. 3. 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 4. Bilateral nonobstructive renal calculi. Dictated by: Dictated on workstation # [id number] Dict: 01/03/23 1558 Trans: 01/03/231745 [facility] [id number] Interpreted by: AMARILYS ESQUIVEL MD Electronically signed by: AMARILYS ESQUIVEL MD 01/03/231745 Diagonstic Imaging: Xray Plain Films/CT/US/NM/MRI: chest Comments NAME: SRAVANI ARTEAGA [facility] REC#: [id number] PT STATUS: REG ER : 1950 PHYSICIAN: FLORA CAPELLAN MD ADMIT DATE: 01/03/23/ER Signed Date of Exam:01/03/23 CHEST 1 VIEW, AP/PA ONLY INDICATION: Confusion, Leukocytosis COMPARISON: 11/23/2022 FINDINGS: Single frontal view of the chest demonstrates normal heart size and pulmonary vascularity. The lungs are well aerated and clear. No large pleural effusion or pneumothorax is seen. The visualized osseous structures show no acute abnormalities. IMPRESSION: 1. No acute cardiopulmonary process. Dictated by: Dictated on workstation # [id number] Dict: 01/03/23 1557 Trans: 01/03/23 174 [facility] [id number] Interpreted by: AMARILYS ESQUIVEL MD Electronically signed by: AMARILYS ESQUIVEL MD 01/03/231744 Departure Impression Primary Impression: Acute kidney injury Additional Impressions: Gross hematuria Severe anemia Evangelina UTI Disposition: XF SHT-COUNT INCLUDES THE [facility] Condition: Improved Transfer Transfer Reason: Exceeds level of care Time Spoke to Accepting Phy: 19:25 Transfer Progress Notes Transfer to [facility] accepted by hospitalist Dr. Hutton in consultation with Dr. Berman with urology. Transfer Time: 12:58 Transfer Facility: [facility] Method of Transfer: EMS Departure-Patient Inst. Referrals: REINALDO HASSAN MD (PCP/Family) Primary Care Physician FLORA CAPELLAN MD Jan 03, 2023 14:26
[2023-01-03 14:36] LABS: BASOPHILS # (AUTO) 0.1 10^3/uL (0.0-0.1); BASOPHILS % (AUTO) 0 % (0-10); EOSINOPHILS # (AUTO) 0.2 10^3/uL (0.0-0.3); EOSINOPHILS % (AUTO) 1 % (0-10); LYMPHOCYTES # (AUTO) 3.2 10^3/uL (1.0-4.0); LYMPHOCYTES % (AUTO) 12 % (12-44); MEAN CORPUSCULAR HEMOGLOBIN 28 pg (25-34); MEAN CORPUSCULAR HGB CONC 32 g/dL (32-36); MEAN CORPUSCULAR VOLUME 88 fL (80-99); MEAN PLATELET VOLUME 9.2 fL (9.0-12.2); MONOCYTES # (AUTO) 1.2 10^3/uL (0.0-1.0); MONOCYTES % (AUTO) 5 % (0-12); NEUTROPHILS # (AUTO) 20.7 10^3/uL (1.8-7.8); NEUTROPHILS % (AUTO) 80 % (42-75); PLATELET COUNT 795 10^3/uL (130-400); WHITE BLOOD COUNT 25.8 10^3/uL (4.3-11.0)
[2023-01-03 14:39] LABS: HEMATOCRIT 19 % (40-54); HEMOGLOBIN 6.1 g/dL (13.3-17.7)
[2023-01-03 14:42] LABS: ALBUMIN 3.2 GM/DL (3.2-4.5); POTASSIUM 5.8 MMOL/L (3.6-5.0)
[2023-01-03 14:45] LABS: TOTAL PROTEIN 7.7 GM/DL (6.4-8.2)
[2023-01-03 14:47] LABS: BILIRUBIN,TOTAL 0.2 MG/DL (0.1-1.0)
[2023-01-03 14:48] LABS: CREATININE SERUM 2.43 MG/DL (0.60-1.30)
[2023-01-03 15:03] LABS: ANISOCYTOSIS MODERATE; HYPOCHROMASIA MODERATE; LYMPHOCYTES % (MANUAL) 10 %; MONOCYTES % (MANUAL) 4 %; NEUTROPHILS % (MANUAL) 86 %
[2023-01-03] MEDS ORDERED: NS IV 1000 ML 1,000 ML IV SCH (15:15)
--- NOTE | 2023-01-03 15:59 | Diagnostic Imaging Report ---
INDICATION: Confusion, Leukocytosis COMPARISON: 11/23/2022 FINDINGS: Single frontal view of the chest demonstrates normal heart size and pulmonary vascularity. The lungs are well aerated and clear. No large pleural effusion or pneumothorax is seen. The visualized osseous structures show no acute abnormalities. IMPRESSION: 1. No acute cardiopulmonary process. Dictated by: Dictated on workstation # [id number]
--- NOTE | 2023-01-03 16:18 | Diagnostic Imaging Report ---
PROCEDURE: CT abdomen and pelvis without contrast. TECHNIQUE: Multiple contiguous axial images were obtained through the abdomen and pelvis without the use of intravenous contrast. Auto Exposure Controls were utilized during the CT exam to meet ALARA standards for radiation dose reduction. INDICATION: Abdominal pain. Indwelling ureteral stents. COMPARISON: 07/11/2022 FINDINGS: Included portions of the lung bases show punctate juxtapleural micronodule of the lateral margins of the right lower lobe. It measures 2 mm and is stable compared to 07/11/2022. CT ABDOMEN: Bilateral double-J ureteral stents are in place. Stents appear to be in appropriate position. Patency of the stents cannot be directly assessed on this exam. There does appear to be mild hydronephrosis, right greater than left. 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 The indwelling stent resides within the inferior pole ureter. Nonobstructive punctate bilateral renal calculi are noted. The adrenal glands, spleen, pancreas, and liver have an unremarkable noncontrast CT appearance. Small bowel loops are nondistended. Normal appendix is identified. There is no loculated fluid collection, free fluid or free air within the abdomen. No abnormal mesenteric or retroperitoneal adenopathy is identified. Osseous structures show no acute abnormalities. Nonacute T12 compression fracture is noted CT PELVIS: There is a large amount of hyperdense material within the lumen of urinary bladder. Indwelling Gaffney catheter is present. Small amount of gas is also present within the lumen of urinary bladder. There is no loculated fluid collection, free fluid or free air within the pelvis. No abnormal adenopathy is seen. Osseous structures show no acute abnormalities. IMPRESSION: 1. Large amount of hyperdense debris is present within the lumen of urinary bladder and is felt to most likely represent blood products. 2. Indwelling bilateral double-J ureteral stents are identified and appear appropriately positioned. There does appear to be mild bilateral hydronephrosis. This does raise question regarding the patency of the stents. 3. 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 4. Bilateral nonobstructive renal calculi. Dictated by: Dictated on workstation # [id number]
[2023-01-03] MEDS ORDERED: morphine INJ 10 MG/ML 1ML (SYR OR VIAL) IVP STA (16:42)
[2023-01-03 16:59] VITALS: BP 114/61
[2023-01-03 17:27] VITALS: BP_SYST 137
[2023-01-03] MEDS ORDERED: FLUCONAZOLE 200 MG/100 ML 100 ML IV ONE (18:30)
[2023-01-03 18:39] VITALS: BP 132/84
[2023-01-03] MEDS ORDERED: HYDROcodone/APAP 5 MG/325 MG (LORTAB) TAB PO ONE (23:15)
[2023-01-04 01:13] LABS: CLARITY,URINE CLOUDY; COLOR,URINE RED
[2023-01-04 01:14] LABS: BACTERIA,URINE LARGE /HPF; GLUCOSE, URINE (UA) 2+ (NEGATIVE); KETONES,URINE 3+ (NEGATIVE); LEUKOCYTE ESTERASE ,URINE 3+ (NEGATIVE); NITRITE,URINE POSITIVE (NEGATIVE); PROTEIN,URINE 3+ (NEGATIVE); RBC,URINE TNTC /HPF; SQUAMOUS EPITHELIAL CELL,UR 0-2 /HPF; WBC,URINE 50-100 /HPF
[2023-01-04 01:17] LABS: BILIRUBIN,URINE NEGATIVE (NEGATIVE)
[2023-01-04 08:44] LABS: BASOPHILS # (AUTO) 0.1 10^3/uL (0.0-0.1); BASOPHILS % (AUTO) 1 % (0-10); EOSINOPHILS # (AUTO) 0.5 10^3/uL (0.0-0.3); EOSINOPHILS % (AUTO) 3 % (0-10); HEMATOCRIT 24 % (40-54); HEMOGLOBIN 7.9 g/dL (13.3-17.7); LYMPHOCYTES # (AUTO) 2.6 10^3/uL (1.0-4.0); LYMPHOCYTES % (AUTO) 17 % (12-44); MEAN CORPUSCULAR HEMOGLOBIN 30 pg (25-34); MEAN CORPUSCULAR HGB CONC 34 g/dL (32-36); MEAN CORPUSCULAR VOLUME 88 fL (80-99); MEAN PLATELET VOLUME 8.8 fL (9.0-12.2); MONOCYTES # (AUTO) 0.9 10^3/uL (0.0-1.0); MONOCYTES % (AUTO) 6 % (0-12); NEUTROPHILS # (AUTO) 11.2 10^3/uL (1.8-7.8); NEUTROPHILS % (AUTO) 73 % (42-75); PLATELET COUNT 708 10^3/uL (130-400); WHITE BLOOD COUNT 15.3 10^3/uL (4.3-11.0)
[2023-01-04 08:59] LABS: EOSINOPHILS % (MANUAL) 6 %; LYMPHOCYTES % (MANUAL) 18 %; MONOCYTES % (MANUAL) 3 %; NEUTROPHILS % (MANUAL) 73 %
[2023-01-04 09:00] LABS: PLATELET ESTIMATE INCREASED; RBC MORPH NORMAL
[2023-01-04] MEDS ORDERED: cefTRIAXone 1 GM PRE-MIX 50 ML IV STA (10:41)
[2023-01-04 12:58] VITALS: BP 115/59
== END 2023-01-04 12:58 | disposition short-term general hospital (02) ==
LOC: EDUNIT# 11:47 → ER 11:48
DX: N17.9 Acute kidney failure, unspecified (principal); D63.1 Anemia in chronic kidney disease; D64.9 Anemia, unspecified; B37.49 Other urogenital candidiasis; I12.9 Hypertensive chronic kidney disease with stage 1 through stage 4 chronic kidney disease, or unspecified chronic kidney disease; E11.22 Type 2 diabetes mellitus with diabetic chronic kidney disease; N18.9 Chronic kidney disease, unspecified; E87.5 Hyperkalemia; E87.1 Hypo-osmolality and hyponatremia; Z86.79 Personal history of other diseases of the circulatory system; Z79.02 Long term (current) use of antithrombotics/antiplatelets; Z79.4 Long term (current) use of insulin; Z89.511 Acquired absence of right leg below knee; Z96.0 Presence of urogenital implants
CPT/HCPCS: 71045; 74176; 80053; 85007; 85027; 86141; 86850; 86900; 86901; 86920; P9016; 36415; 81000; 82947; 87088

== ENCOUNTER 2023-01-20 13:44 | Emergency (ER) | payer MEDICARE, MEDICAID ==
--- NOTE | 2023-01-20 14:05 | ED General ---
General Chief Complaint: - Reproductive Stated Complaint: GENITAL SWELLING Nursing Triage Note: pt presents to ED via EMS with significant lower abdominal/salvatore-area edema and decreased alertness, both acute in nature. pt was admitted to [facility] last week for hematuria and d/c'd his blood thinners at that time. pt has hx of clotting. pt responds to pain at time of triage. no response to orientation questions. Source of Information: EMS (ZOHRA ALVAREZ MD) History of Present Illness Date Seen by Provider: Jan 20, 2023 Time Seen by Provider: 13:56 Initial Comments Patient is a 72-year-old male who presents to the emergency department chief complaint altered mental status. 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 Diabetic, recent hospitalization at [facility] for gross hematuria. Was discharged from [facility] in [place] on Sunday back to the retirement. Patient had multiple units of blood transfused. His blood thinners were stopped. Apparently today when the patient was evaluated he was not responsive or minimally responsive and staff at the retirement realized that he had had no urinary output but even probably 2 days. They attempted straight cath and were able to get out 250 cc of purulent appearing urine. According to the ER nursing staff who were here when the patient was last at our facility a week ago he was verbal and answering questions. Today he is only saying 1 word such as "out" or "ok". Mostly staring up at the ceiling, open mouth, not engaging. Very dry oral mucosa, tachycardia at 110 bpm. Oxygen saturations 97%. Blood pressure is good. Patient grimaces to palpation of lower abdomen, suprapubic area is extremely swollen and tender to touch, penile shaft is very edematous with purulence dripping from the end of the penis that is able to be expressed with palpation o f the mons. Timing/Duration: Other (unknown) Severity: Severe (ZOHRA ALVAREZ MD) Allergies and Home Medications Allergies Coded Allergies: choline fenofibrate (Verified Allergy, Unknown, 12/07/17) gemfibrozil (Verified Allergy, Unknown, 12/07/17) niacin (Verified Allergy, Unknown, 12/07/17) pioglitazone (Verified Allergy, Unknown, 12/07/17) Patient Home Medication List Home Medication List Reviewed: Yes (ZOHRA ALVAREZ MD) Albuterol Sulfate (Ventolin Hfa) 1 Puff Puff, 2 PUFF IH Q4H PRN for SHORTNESS OF BREATH Prescribed by: ERENDIRA SERRANO on 07/25/22 111 Alirocumab (Praluent Pen) 75 Mg/Ml Pen.injctr, 75 MG INJ EVERY 2 WEEKS Prescribed by: ERENDIRA SERRANO on 07/25/22 111 Amlodipine Besylate (Amlodipine Besylate) 10 Mg Tablet, 10 MG PO DAILY Prescribed by: ERENDIRA SERRANO on 07/25/22 111 Aspirin (Aspirin EC) 81 Mg Tablet.dr, 81 MG PO DAILY Prescribed by: ERENDIRA SERRANO on 07/25/221115 Atorvastatin Calcium (Atorvastatin Calcium) 80 Mg Tablet, 80 MG PO HS Prescribed by: ERENDIRA SERRANO on 07/25/22 111 Cholecalciferol (Vitamin D3) (Vitamin D3) 1,250 Mcg (62117 Unit) Capsule, 1,250 MCG PO FRIDAYS Prescribed by: ERENDIRA SERRANO on 07/25/22 111 Clopidogrel Bisulfate (Clopidogrel) 75 Mg Tablet, 75 MG PO DAILY Prescribed by: ERENDIRA SERRANO on 07/25/22 111 Colesevelam HCl (Welchol) 625 Mg Tablet, 625 MG PO TID PRN for DIARRHEA Prescribed by: ERENDIRA SERRANO on 07/25/22 111 Empagliflozin (Jardiance) 25 Mg Tablet, 25 MG PO DAILY, (Reported) Entered as Reported by: Chapis Jenkins on 10/18/22 1142 Hydralazine HCl (Hydralazine HCl) 25 Mg Tablet, 25 MG PO Q8HR Prescribed by: ERENDIRA SERRANO on 07/25/22 111 Hydrocodone/Acetaminophen (Hydrocodone-Acetamin 5-325 mg) 5 Mg-325 Mg Tablet, 1 TAB PO Q8H PRN for PAIN-MODERATE (5-7) Prescribed by: ERENDIRA SERRANO on 07/25/22 111 Insulin Aspart (Novolog Flexpen) 100 Unit/Ml (3 Ml) Solution, 18 UNITS SQ TIDPC Prescribed by: Chapis Jenkins on 10/18/22 1142 Insulin Degludec (Tresiba Flextouch U-200) 200 Unit/Ml (3 Ml) Insuln.pen, 10 UNIT SQ DAILY Prescribed by: ERENDIRA SERRANO on 07/25/22 111 Levothyroxine Sodium (Levothyroxine Sodium) 125 Mcg Tablet, 125 MCG PO DAILY Prescribed by: ERENDIRA SERRANO on 07/25/221115 Mirabegron (Myrbetriq) 50 Mg Tab.er.24h, 50 MG PO DAILY Prescribed by: ERENDIRA SERRANO on 07/25/22 111 Omeprazole (Omeprazole) 20 Mg Capsule.dr, 20 MG PO HS Prescribed by: ERENDIRA SERRANO on 07/25/22 111 Sennosides/Docusate Sodium (Senna S Tablet) 8.6 Mg-50 Mg Tablet, 2 EACH PO BID PRN for CONSTIPATION-6TH LINE Prescribed by: ERENDIRA SERRANO on 07/25/221115 Venlafaxine HCl (Venlafaxine HCl) 75 Mg Tab, 75 MG PO DAILY Prescribed by: ERENDIRA SERRANO on 07/25/22 111 [allrocumab] , 75 MG SQ DAILY, (Reported) Entered as Reported by: Chapis Jenkins on 10/18/22 1142 Review of Systems Review of Systems Constitutional: see HPI unable to obtain secondary to patient's clinical condition (ZOHRA ALVAREZ MD) Past Fpaoygk-Bpvybz-Fajstt Hx Patient Social History Substance use?: Unable to obtain Alcohol Use?: Unable to obtain Pt feels they are or have been: Unable to obtain (ZOHRA ALVAREZ MD) Immunizations Up To Date Tetanus Booster (TDap): More than 5yrs PED Vaccines UTD: No First/Initial COVID19 Vaccinat: NO Second COVID19 Vaccination Ben: NO Third COVID19 Vaccination Date: NO (ZOHRA ALVAREZ MD) Seasonal Allergies Seasonal Allergies: Yes (ZOHRA ALVAREZ MD) Past Medical History Surgery/Hospitalization HX: HTN, NH. DIABETES, CVA, [facility] Surgeries: Yes (hemmorhoids removed, CATARACTS, WRIST FX, right 2nd toe amputation) Amputation Respiratory: Yes Sleep Apnea, COPD Currently Using CPAP: No Currently Using BIPAP: No Cardiac: Yes High Cholesterol, Hypertension, Peripheral Vascular Neurological: Yes Dementia, Neuropathy, Parkinson's Disease Reproductive Disorders: No Sexually Transmitted Disease: No HIV/AIDS: No Genitourinary: Yes Renal Failure Gastrointestinal: Yes Gastroesophageal Reflux, Irritable Bowel Musculoskeletal: Yes Arthritis, Chronic Back Pain, Fractures Endocrine: Yes (Type II) Diabetes, 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 Hearing Impairment: Denies Cancer: No Psychosocial: Yes Anxiety, Depression Integumentary: No Blood Disorders: No Adverse Reaction/Blood Tranf: No (N/A) (ZOHRA ALVAREZ MD) Family Medical History Alcoholism G8 BROTHER G8 BROTHER Alzheimer's disease 19 MOTHER Arthritis 19 FATHER 19 MOTHER Asthma 19 FATHER Cataracts 19 FATHER 19 MOTHER G8 BROTHER G8 BROTHER G8 SISTER G8 SISTER G8 SISTER Completed stroke 19 FATHER G8 SISTER Deafness or hearing loss G8 BROTHER Diabetes mellitus 19 FATHER 19 MOTHER G8 BROTHER G8 BROTHER G8 BROTHER G8 SISTER G8 SISTER G8 SISTER Hypertension 19 FATHER 19 MOTHER G8 BROTHER G8 BROTHER G8 BROTHER G8 BROTHER G8 SISTER G8 SISTER G8 SISTER G8 SISTER G8 SISTER G8 SISTER G8 SISTER Respiratory disorder G8 BROTHER No Family History of: AIDS Abdominal aortic aneurysm Britton's disease Aphasia Cancer of mouth Cardiovascular disease Colon cancer Congenital disease Congenital heart disease Coronary thrombosis Cystic fibrosis Dementia Drug abuse Dysphasia Fibrocystic disease of breast Gastroenteritis Glaucoma Headache disorder Hypercholesterolemia Infertility Kidney disease Myocardial infarction Neoplasm Not obtainable due to adoption Osteoporosis Parkinson's disease Prostate cancer Psychosocial problem Seizure disorder Severe allergy Thyroid disease Tuberculosis Visual disorder No Pertinent Family Hx (ZOHRA ALVAREZ MD) Physical Exam Vital Signs Vital Signs - First Documented 01/20/23 13:47 Temp 38.2 Pulse 109 Resp 32 B/P (MAP) 146/79 (101) Pulse Ox 97 O2 Delivery Room Air ([facility]) Vital Signs Capillary Refill : Less Than 3 Seconds (ZOHRA ALVAREZ MD) Height, Weight, BMI Height: 5'10.00" Weight: 161lbs. 4.0oz. [id number]; BMI Method:Stated General Appearance: Chronically ill Eyes: Bilateral Eye Normal Inspection HEENT: Other (dry oral mucosa) Respiratory: Lungs Clear, Normal Breath Sounds, No Accessory Muscle Use, No Respiratory Distress Cardiovascular: Regular Rate, Rhythm, Tachycardia (110) Gastrointestinal: Abnormal Bowel Sounds, Tenderness (diffuse tenderness; hypoactive BS; significant edema/fullkness MONS pubis area with edeam into the penile shaft. Romel palpation of the MONS area, purulence is expelled from the urethra; crepitance @ the MONS PUBIS) Genital/Rectal: Other (penile swelling and scrotal swelling, appears tender to palpation; erythema/blue/perez discoloration of the scrotum and penis and perineum (no crepitance at perineum)) Extremity: Other (bruising bilateral UE's. s/p BKA left) Neurologic/Psychiatric: Alert, Aphasia, Other (not following commands or speaking. will occasionally respond with an appropriate "ow" to IV stick; moving UE equally. very weak) Skin: Warm/Dry, Pallor (ZOHRA ALVAREZ MD) Focused Exam Lactate Level 01/20/23 13:55: Lactic Acid Level 2.30*H (EMERY GALLAGHER DO) Time of Focused Exam: 14:30 Respiratory: Lungs Clear, Normal Breath Sounds, Other (tachypneic) Cardiovascular: Regular Rate, Rhythm, Tachycardia (107) Capillary Refill: Less Than 3 Seconds Peripheral Pulses: 1+ Radial Pulses (R), 1+ Radial Pulses (L) Skin: warm/dry, pallor (ZOHRA ALVAREZ MD) Lactic Acid Level Laboratory Tests Test 01/20/23 13:55 Lactic Acid Level 2.30 MMOL/L (0.50-2.00) *H (LAWRENCE GALLAGHERH Piedad DO) Within 3hrs of presentation: Admin fluids, Admin ABX, Blood cultures prior to ABX's, Focus exam, Lactate level (ZOHRA ALVAREZ MD) Progress/Results/Core Measures Suspected Sepsis SIRS Temperature: Pulse: 109 Respiratory Rate: 32 Laboratory Tests 01/20/23 13:55: White Blood Count 40.3*H Blood Pressure 146 /79 Mean: 101 01/20/23 13:55: Lactic Acid Level 2.30*H Laboratory Tests 01/20/23 13:55: Creatinine 2.94H, INR Comment 1.4, Platelet Count 902H, Total Bilirubin 0.3 (ZOHRA ALVAREZ MD) Results/Orders Lab Results Laboratory Tests Test 01/20/23 13:55 01/20/23 14:45 Range/Units White Blood Count 40.3 *H 4.3-11.0 10^3/uL Red Blood Count 3.02 L 4.30-5.52 10^6/uL Hemoglobin 8.7 L 13.3-17.7 g/dL Hematocrit 27 L 40-54 % Mean Corpuscular Volume 88 80-99 fL Mean Corpuscular Hemoglobin 29 25-34 pg Mean Corpuscular Hemoglobin Concent 33 32-36 g/dL Red Cell Distribution Width 16.4 H 10.0-14.5 % Platelet Count 902 H 130-400 10^3/uL Mean Platelet Volume 9.8 9.0-12.2 fL Immature Granulocyte % (Auto) 2 % Neutrophils (%) (Auto) 91 H 42-75 % Lymphocytes (%) (Auto) 4 L 12-44 % Monocytes (%) (Auto) 3 0-12 % Eosinophils (%) (Auto) 0 0-10 % Basophils (%) (Auto) 0 0-10 % Neutrophils # (Auto) 36.6 H 1.8-7.8 10^3/uL Lymphocytes # (Auto) 1.6 1.0-4.0 10^3/uL Monocytes # (Auto) 1.4 H 0.0-1.0 10^3/uL Eosinophils # (Auto) 0.1 0.0-0.3 10^3/uL Basophils # (Auto) 0.1 0.0-0.1 10^3/uL Immature Granulocyte # (Auto) 0.6 H 0.0-0.1 10^3/uL Neutrophils % (Manual) 88 % Lymphocytes % (Manual) 3 % Monocytes % (Manual) 3 % Eosinophils % (Manual) 0 % Basophils % (Manual) 0 % Band Neutrophils 6 % Anisocytosis SLIGHT Prothrombin Time 17.7 H 12.2-14.7 SEC INR Comment 1.4 0.8-1.4 Activated Partial Thromboplast Time 34 24-35 SEC Sodium Level 138 135-145 MMOL/L Potassium Level 5.1 H 3.6-5.0 MMOL/L Chloride Level 109 H 98-107 MMOL/L Carbon Dioxide Level 13 L 21-32 MMOL/L Anion Gap 16 H 5-14 MMOL/L Blood Urea Nitrogen 47 H 7-18 MG/DL Creatinine 2.94 H 0.60-1.30 MG/DL Estimat Glomerular Filtration Rate 22 BUN/Creatinine Ratio 16 Glucose Level 241 H 70-105 MG/DL Lactic Acid Level 2.30 *H 0.50-2.00 MMOL/L Calcium Level 9.6 8.5-10.1 MG/DL Corrected Calcium 10.6 H 8.5-10.1 MG/DL Total Bilirubin 0.3 0.1-1.0 MG/DL Aspartate Amino Transf (AST/SGOT) 30 5-34 U/L Alanine Aminotransferase (ALT/SGPT) 25 0-55 U/L Alkaline Phosphatase 395 H 40-136 U/L Total Protein 8.6 H 6.4-8.2 GM/DL Albumin 2.8 L 3.2-4.5 GM/DL Urine Color YELLOW Urine Clarity TURBID Urine pH 6.0 5-9 Urine Specific [place] 1.010 L 1.016-1.022 Urine Protein 2+ H NEGATIVE Urine Glucose (UA) 3+ H NEGATIVE Urine Ketones NEGATIVE NEGATIVE Urine Nitrite NEGATIVE NEGATIVE Urine Bilirubin NEGATIVE NEGATIVE Urine Urobilinogen 0.2 < = 1.0 MG/DL Urine Leukocyte Esterase 2+ H NEGATIVE Urine RBC (Auto) 3+ H NEGATIVE Urine RBC 2-5 H /HPF Urine WBC TNTC H /HPF Urine Squamous Epithelial Cells NONE /HPF Urine Crystals NONE /LPF Urine Bacteria NEGATIVE /HPF Urine Casts NONE /LPF Urine Mucus NEGATIVE /LPF Urine Yeast MODERATE H /HPF Urine Culture Indicated CULTURE PENDING (EMERY GALLAGHER DO) Medications Given in ED Current Medications Medications Dose Ordered Sig/Jing Route Start Time Stop Time Status Last Admin Dose Admin Fentanyl Citrate 25 mcg ONCE ONCE IVP 01/20/23 14:15 01/20/23 14:16 DC 01/20/23 14:30 25 MCG Lidocaine HCl 10 ml ONCE ONCE TOP 01/20/23 14:15 01/20/23 14:16 DC 01/20/23 14:30 10 ML Meropenem 1000 mg/ Sodium Chloride 100 ml @ 200 mls/hr ONCE ONCE IV 01/20/23 14:45 01/20/23 15:14 DC 01/20/23 15:07 200 MLS/HR Ondansetron HCl 4 mg ONCE ONCE IVP 01/20/23 14:15 01/20/23 14:16 DC 01/20/23 14:30 4 MG (AILEEN,EMERY L DO) Vital Signs/I&O 01/20/23 01/20/23 13:47 14:37 Temp 38.2 Pulse 109 105 Resp 32 31 B/P (MAP) 146/79 (101) 149/74 (99) Pulse Ox 97 97 O2 Delivery Room Air Room Air (EMERY GALLAGHER L DO) Vital Signs/I&O Capillary Refill : Less Than 3 Seconds (ZOHRA ALVAREZ MD) Blood Pressure Mean: 101 Progress Note #1: Time: 15:10 Progress Note Patient is a 72-[facility] chief complaint altered mental status. Evaluation today includes physical exam, sepsis protocol including CBC, Chem-12, coags, lactic acid, UA, chest x-ray. CT scan of the abdomen and pelvis without IV contrast was also obtained. Physical exam is pertinent for well-developed well-nourished 72-year-old male currently nonverbal, poorly tracking with eye movements, extremely dry oral mucosa, tachycardic at 110 with clear lung sounds, significantly tender abdomen with massive amount of swelling in the lower abdomen/mons pubis area that is crepitan t to palpation and when palpated causes thick yellowish-white milky discharge from the end of the penis. The penis is quite edematous as is the scrotum with bluish-oliva discoloration. Blood pressure 140 systolic room air sats 96%. Differential diagnosis pelvic subcutaneous abscess that has ruptured into the urethra, bladder rupture, necrotizing fasciitis, sepsis. Labs reviewed, CBC shows a white count of 40,000 with 91% neutrophil percentage, anemia with a hemoglobin of 8.. Chemistry shows acute on chronic renal failure with slightly increased anion gap slightly increased serum potassium. Lactic acid 2.3. Coags pending at the time of this this dictation UA pending at the time of this dictation. Chest x-ray is unremarkable, his head CT is unremarkable, pelvis without IV contrast shows subcutaneous air in the lower anterior abdominal wall just cephalad to the penis and tracking down throughout the penis with suggestion of an abscess forming inferiorly and posteriorly at the base of the penis. Findings consistent with necrotizing fasciitis. Gaffney catheter placed which is draining thick white/yellow fluid consistent with "pus" approximately 150 cc. I had a long discussion with the regarding treatment of this infection. He is quite debilitated and lives in a retirement. She states he has been through "a lot" in the last several months. He has had multiple strokes in the past as well as a recent hospitalization for acute blood loss anemia requiring multiple units of blood. She states she really does not want to put them through anymore and would really like for him to be able to have some improvement into his treatment. He has been verbal with one-word answers intermittently. I provided him with an oral swab to wet his mouth and after some coaxing and speaking directly to him he very clearly nodded his head no when he was asked if he wanted "surgery on his privates". I did explain that it would be quite an extensive surgery and that it would require a prolonged hospitalization. It would be a very difficult recovery as well as a difficult surgery and even surgery could not guarantee cure. I had earlier discussed the case with Dr. Corea on for general surgery here. He is agreeable with a diagnosis of necrotizing fasciitis and recommends if the patient is to pursue treatment transfer to a facility with urologic care. We do not have that here at [facility], the patient has been treated at [facility] in [place] which does have urology. His is happy with the patient's answer that he does not want surgery. His antibiotics however have already been hung. We will let these complete. I talked to her about hospice care and transfer back to the retirement for end-of-life care. Patient has no hospice company preferences. We will contact [facility]. Anticipate transfer back to the retirement with comfort care/end-of-life care. Progress Note #2: Time: 17:33 Progress Note Notified by hospice nurse from [facility] at 1705 that as they were finishing up paperwork, the asked Sravani again if he would want surgery. The hospice nurse stated that he was quite awake he told her that he did. I went back into the room to talk to the again to talk to Sravani. He did have a moment where he was opening his eyes and seemed to be trying to talk. I again went over the extensiveness of the likely debridement/surgery involving his scrotum, penis and lower abdomen. I advised that he would have very large open wounds and extensive surgery and it would be very difficult for him to recover and take a long time due to his chronic medical conditions. He opened his eyes looked at me after I asked him if he wanted the surgery and said "yes I do". His is relying on his answers and wishes to proceed with transfer. I then went back to the computer and added a dose of clindamycin 900 mg. I called [facility] initially spoke to the general surgeon on-call who deferred me to urology. I spoke with with urology who will accept the patient in consultation for debridement. Awaiting talking to the hospitalist for final acceptance. Going to go ahead and order a repeat lactic acid as well as more IV fluids due to sepsis protocol. Long delay in fulfilling sepsis protocol due to the anticipation of hospice/end-of-life care plan previously. Discussed with Dr Miranda, Hospitalist who accepts. PER PATIENT IS A DNR (ZOHRA ALVAREZ MD) Diagnostic Imaging Diagonstic Imaging: Xray Plain Films/CT/US/NM/MRI: chest [facility] [place] [place] [facility] REC[facility] [id number] PT STATUS: REG ER : 1950 PHYSICIAN: ZOHRA ALVAREZ MD ADMIT DATE: 01/20/23/ER Draft Date of Exam:01/20/23 CHEST 1 VIEW, AP/PA ONLY EXAM: CHEST 1 VIEW, AP/PA ONLY INDICATION: Altered mental status. COMPARISON: 01/03/2023. FINDINGS: Normal heart size and central pulmonary vascularity. Lungs are clear. No pleural effusion or pneumothorax. No acute osseous findings. IMPRESSION: No acute cardiopulmonary findings. Dictated on workstation # [id number] Dict: 01/20/23 1432 Trans: 01/20/23 1434 [facility] [id number] Interpreted by: SHAYY TIRADO MD Electronically signed by: Diagonstic Imaging: CT Comments [facility] [place] [place] [facility] REC#: [id number] PT STATUS: REG ER : 1950 PHYSICIAN: ZOHRA ALVAREZ MD ADMIT DATE: 01/20/23/ER Draft Date of Exam:01/20/23 CT HEAD WO PROCEDURE: CT head without contrast. TECHNIQUE: Multiple contiguous axial images were obtained through the brain without the use of intravenous contrast. Auto Exposure Controls were utilized during the CT exam to meet ALARA standards for radiation dose reduction. INDICATION: Altered mental status. COMPARISON: MRI brain without contrast 05/17/2022. FINDINGS: Moderate to severe generalized parenchymal volume loss. 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 No intracranial hemorrhage, mass effect, hydrocephalus or extra-axial fluid collections. No CT evidence of an acute territorial infarction. Osseous structures are intact. Paranasal sinuses and mastoids are clear. IMPRESSION: No acute intracranial CT findings. Dictated on workstation # [id number] Dict: 01/20/23 1436 Trans: 01/20/23 1443 [facility]B [id number] Interpreted by: SHAYY TIRADO MD Electronically signed by: [facility] Imaging: CT Comments [facility] [place] [place] NAME: [facility] REC#: [id number] PT STATUS: REG ER : 1950 PHYSICIAN: ZOHRA ALVAREZ MD ADMIT DATE: 01/20/23/ER Draft Date of Exam:01/20/23 CT ABDOMEN/PELVIS WO PROCEDURE: CT abdomen and pelvis without contrast. TECHNIQUE: Multiple contiguous axial images were obtained through the abdomen and pelvis without the use of intravenous contrast. Auto Exposure Controls were utilized during the CT exam to meet ALARA standards for radiation dose reduction. INDICATION: Abdominal pain. Pus coming from penis. Abnormal FAST exam. COMPARISON: CT abdomen and pelvis without contrast 01/03/2023. FINDINGS: Edema and soft tissue gas throughout the penis. There is focal edema versus early developing fluid collection at the base of the penis inferiorly which measures approximately 2.2 x 3.0 cm. Lung bases are clear. Cholecystectomy. The liver, pancreas, spleen, adrenals are negative. Bilateral ureteral stents appear appropriately positioned. 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 No evidence of appendicitis. No free intraperitoneal air or fluid. No lymphadenopathy. No evidence of bowel obstruction. Burst fracture of T12 resulting in approximately 80% height loss and mild retropulsion appears to be chronic and is stable compared to 01/03/2023. IMPRESSION: 1. Edema and gas throughout the penis suspicious for gas-forming necrotizing infection. There is also focal edema versus early developing fluid collection at the base of the penis measuring up to 3.0 cm which lies against the rectum. 2. Bilateral ureteral stents. Appropriately positioned. 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 Findings discussed with Dr. Zohra Alvarez at 2:53 PM on 01/20/2023. Dictated on workstation # [id number] Dict: 01/20/23 1441 Trans: 01/20/23 1459 CVB [id number] Interpreted by: SHAYY TIRADO MD Electronically signed by: (ZOHRA ALVAREZ MD) Critical Care Note Critical Care Start Time: 13:56 Stop Time: 18:00 Total Time (minutes) 60min critical care time in the evaluation and management of this patient with sepsis/necrotizing faciitis. Time includes initial evaluation, and initiation of sepsis protocol. Identification of life threatening infection, antibiotic m anagement, fluid resuscitation. Extensive review of medical record. Attemtpo to get medical records from most recent hospital discharge 4d prior. multiple and Extensive discussions with at the bedside. Discussion with Radiologist regarding CT results. Discussion with outside hospital for emergent transfer - 3 physicians (general surgeon, Urologist and hoospitalis). (ZOHRA ALVAREZ MD) Departure Communication (Admissions) I assumed care of the patient at 1800, shift change from Dr. Alvarez. Arrangements have been made for him to be transferred to [facility] in [place]. The family came out of the room and let the nurse know that they have ultimately made the decision to not have the surgery because they think the patient ultimately would not want to undergo the procedure. He had voiced wishes not to have any more surgeries recently when he was more coherent. His and brother are in the room and they are in agreement that the patient would not want this. They request to be transferred back to the nursing facility for arrangement of hospice care. I believe this is reasonable given the circumstances. (EMERY GALLAGHER DO) Impression Primary Impression: Sepsis Qualified Codes: A41.9 - Sepsis, unspecified organism Additional Impression: Necrotizing fasciitis Disposition: 01 HOME, SELF-CARE Condition: Critical (ERASED) Transfer Transfer Reason: Exceeds level of care Time Spoke to Accepting Phy: 15:40 Transfer Progress Notes Discussed with Dr Martinez (Urology) and Dr Miranda (hospitalist) who accepts Transfer Facility: [facility] Method of Transfer: Air (ZOHRA ALVAREZ MD) Departure-Patient Inst. Referrals: REINALDO HASSAN MD (PCP/Family) Primary Care Physician Add. Discharge Instructions: You have opted not to undergo surgery. As discussed the infection will likely progress. Hospice arrangements can be made at the nursing facility. Copy Copies To 1: REINALDO HASSAN MD, KATHRYN M MD Jan 20, 2023 14:05 EMERY GALLAGHER DO Jan 20, 2023 18:20
[2023-01-20 14:15] LABS: BASOPHILS # (AUTO) 0.1 10^3/uL (0.0-0.1); BASOPHILS % (AUTO) 0 % (0-10); EOSINOPHILS # (AUTO) 0.1 10^3/uL (0.0-0.3); EOSINOPHILS % (AUTO) 0 % (0-10); HEMATOCRIT 27 % (40-54); HEMOGLOBIN 8.7 g/dL (13.3-17.7); LYMPHOCYTES # (AUTO) 1.6 10^3/uL (1.0-4.0); LYMPHOCYTES % (AUTO) 4 % (12-44); MEAN CORPUSCULAR HEMOGLOBIN 29 pg (25-34); MEAN CORPUSCULAR HGB CONC 33 g/dL (32-36); MEAN CORPUSCULAR VOLUME 88 fL (80-99); MEAN PLATELET VOLUME 9.8 fL (9.0-12.2); MONOCYTES # (AUTO) 1.4 10^3/uL (0.0-1.0); MONOCYTES % (AUTO) 3 % (0-12); NEUTROPHILS # (AUTO) 36.6 10^3/uL (1.8-7.8); NEUTROPHILS % (AUTO) 91 % (42-75); PLATELET COUNT 902 10^3/uL (130-400)
[2023-01-20] MEDS ORDERED: fentaNYL INJ 100 MCG/2 ML AMP IVP ONE (14:15)
[2023-01-20] MEDS ORDERED: LIDOCAINE UROJET 2% GEL 10 ML PKG TOP ONE (14:15)
[2023-01-20] MEDS ORDERED: ONDANSETRON 4 MG/2 ML (SDV) Z0FRAN IVP ONE (14:15)
[2023-01-20 14:17] LABS: ALBUMIN 2.8 GM/DL (3.2-4.5); POTASSIUM 5.1 MMOL/L (3.6-5.0)
[2023-01-20 14:19] LABS: CALCIUM 9.6 MG/DL (8.5-10.1)
[2023-01-20 14:20] LABS: INR 1.4 (0.8-1.4); PROTHROMBIN TIME PATIENT 17.7 SEC (12.2-14.7); TOTAL PROTEIN 8.6 GM/DL (6.4-8.2)
[2023-01-20 14:21] LABS: WHITE BLOOD COUNT 40.3 10^3/uL (4.3-11.0)
[2023-01-20 14:22] LABS: BILIRUBIN,TOTAL 0.3 MG/DL (0.1-1.0)
[2023-01-20 14:24] LABS: CREATININE SERUM 2.94 MG/DL (0.60-1.30)
[2023-01-20] MEDS ORDERED: NS IV 1000 ML 1,000 ML IV STA ×2 (14:34→17:45)
--- NOTE | 2023-01-20 14:35 | Diagnostic Imaging Report ---
EXAM: CHEST 1 VIEW, AP/PA ONLY INDICATION: Altered mental status. COMPARISON: 01/03/2023. FINDINGS: Normal heart size and central pulmonary vascularity. Lungs are clear. No pleural effusion or pneumothorax. No acute osseous findings. IMPRESSION: No acute cardiopulmonary findings. Dictated by: Dictated on workstation # [id number]
--- NOTE | 2023-01-20 14:43 | Diagnostic Imaging Report ---
PROCEDURE: CT head without contrast. TECHNIQUE: Multiple contiguous axial images were obtained through the brain without the use of intravenous contrast. Auto Exposure Controls were utilized during the CT exam to meet ALARA standards for radiation dose reduction. INDICATION: Altered mental status. COMPARISON: MRI brain without contrast 05/17/2022. FINDINGS: Moderate to severe generalized parenchymal volume loss. 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 No intracranial hemorrhage, mass effect, hydrocephalus or extra-axial fluid collections. No CT evidence of an acute territorial infarction. Osseous structures are intact. Paranasal sinuses and mastoids are clear. IMPRESSION: No acute intracranial CT findings. Dictated by: Dictated on workstation # [id number]
[2023-01-20] MEDS ORDERED: MEROPENEM 1,000 MG in NS (IVPB) 100 ML IV ONE (14:45)
[2023-01-20] MEDS ORDERED: VANCOMYCIN INJECTION 1,000 MG in NS (IVPB) 250 ML IV ONE (14:45)
--- NOTE | 2023-01-20 15:00 | Diagnostic Imaging Report ---
PROCEDURE: CT abdomen and pelvis without contrast. TECHNIQUE: Multiple contiguous axial images were obtained through the abdomen and pelvis without the use of intravenous contrast. Auto Exposure Controls were utilized during the CT exam to meet ALARA standards for radiation dose reduction. INDICATION: Abdominal pain. Pus coming from penis. Abnormal FAST exam. COMPARISON: CT abdomen and pelvis without contrast 01/03/2023. FINDINGS: Edema and soft tissue gas throughout the penis. There is focal edema versus early developing fluid collection at the base of the penis inferiorly which measures approximately 2.2 x 3.0 cm. Lung bases are clear. Cholecystectomy. The liver, pancreas, spleen, adrenals are negative. Bilateral ureteral stents appear appropriately positioned. 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 No evidence of appendicitis. No free intraperitoneal air or fluid. No lymphadenopathy. No evidence of bowel obstruction. Burst fracture of T12 resulting in approximately 80% height loss and mild retropulsion appears to be chronic and is stable compared to 01/03/2023. IMPRESSION: 1. Edema and gas throughout the penis suspicious for gas-forming necrotizing infection. There is also focal edema versus early developing abscess at the base of the penis measuring up to 3.0 cm which lies against the rectum. 2. Bilateral ureteral stents are appropriately positioned. 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 Findings discussed with Dr. Zohra Marks at 2:53 PM on 01/20/2023. Dictated by: Dictated on workstation # [id number]
[2023-01-20 15:15] LABS: ANISOCYTOSIS SLIGHT; BAND NEUTROPHILS 6 %; BASOPHILS % (MANUAL) 0 %; EOSINOPHILS % (MANUAL) 0 %; LYMPHOCYTES % (MANUAL) 3 %; MONOCYTES % (MANUAL) 3 %; NEUTROPHILS % (MANUAL) 88 %
[2023-01-20 16:01] LABS: BILIRUBIN,URINE NEGATIVE (NEGATIVE); CLARITY,URINE TURBID; COLOR,URINE YELLOW; GLUCOSE, URINE (UA) 3+ (NEGATIVE); KETONES,URINE NEGATIVE (NEGATIVE); LEUKOCYTE ESTERASE ,URINE 2+ (NEGATIVE); NITRITE,URINE NEGATIVE (NEGATIVE); PROTEIN,URINE 2+ (NEGATIVE)
[2023-01-20 16:10] LABS: BACTERIA,URINE NEGATIVE /HPF; WBC,URINE TNTC /HPF; YEAST,URINE MODERATE /HPF
[2023-01-20] MEDS ORDERED: CLINDAMYCIN 900 MG/50 ML IVPB 50 ML IV ONE (17:15)
[2023-01-20 18:48] VITALS: BP 133/68
== END 2023-01-20 19:20 | disposition home or self-care (01) ==
LOC: EDUNIT# 13:44 → ER 13:47
DX: A41.9 Sepsis, unspecified organism (principal); M72.6 Necrotizing fasciitis; S40.022A Contusion of left upper arm, initial encounter; S40.021A Contusion of right upper arm, initial encounter; R68.2 Dry mouth, unspecified; E87.5 Hyperkalemia; R00.0 Tachycardia, unspecified; I12.9 Hypertensive chronic kidney disease with stage 1 through stage 4 chronic kidney disease, or unspecified chronic kidney disease; E11.22 Type 2 diabetes mellitus with diabetic chronic kidney disease; N18.9 Chronic kidney disease, unspecified; Z79.4 Long term (current) use of insulin; Z28.310 Unvaccinated for COVID-19; X58.XXXA Exposure to other specified factors, initial encounter
CPT/HCPCS: 36415; 70450; 71045; 74176; 80053; 81000; 83605; 85007; 85027; 85610; 85730; 87040; 87088